=== PATIENT | female | born 1955 | race Caucasian/White ===

== ENCOUNTER 2023-04-06 12:52 | Inpatient (IN) | payer MEDICARE, SELFPAY ==
[2023-04-06] VITALS (17 sets, daily range): BP systolic 122–167; BP diastolic 81–111; PULSE 81–115; RESP 12–23; TEMP 36.4–36.8; O2SAT 81–97; BMI 24.2; BMI 27.7
[2023-04-06 13:16] LABS: Glucometer 373 mg/dL (74-106)
--- NOTE | 2023-04-06 13:16 | ED_ITS ---
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 EMS states the patient is more confused than normal per her significant other. States she has been sitting in a stool 4 days and has not been taking care of herself. He stated she was not acting right thought that her sugar was low but they did not check it. EMS reports glucose over 300. Patient has been sitting in her urine and feces 4 days. She is unkempt has not been eating and drinking. He denied any evidence of vomiting. Patient is not interacting normally does with orders. She is unable to provide a history. There is no one present in the emergency department other than EMS to provide a history. MD complaint: Reports altered mental status Related Data Home Medications Medication Instructions Recorded Confirmed atorvastatin 40 mg tablet 80 mg PO DAILY 04/06/23 04/06/23 clopidogrel 75 mg tablet 75 mg PO DAILY 04/06/23 04/06/23 gabapentin 300 mg capsule 300 mg PO Q12H 04/06/23 04/06/23 insulin glargine 100 unit/mL (3 60 unit subcut BID 04/06/23 04/06/23 mL) subcutaneous pen (Lantus Solostar U-100 Insulin) lisinopril 2.5 mg tablet 2.5 mg PO DAILY 04/06/23 04/06/23 metoprolol tartrate 25 mg tablet 25 mg PO DAILY 04/06/23 04/06/23 omeprazole 40 mg capsule,delayed 40 mg PO DAILY 04/06/23 04/06/23 release sitagliptin phosphate 100 mg 100 mg PO DAILY 04/06/23 04/06/23 tablet (Januvia) Allergies Allergy/AdvReac Type Severity Reaction Status Date / Time adhesive tape AdvReac Mild Verified 04/06/23 17:01 hydrocodone [From Vicodin] AdvReac Mild Nausea Verified 04/06/23 17:01 Review of Systems ROS Status of ROS unobtainable due to mental status Exam Narrative Exam Narrative: Nurses notes and vital signs reviewed and patient is not hypoxic. General: Unkempt, awake, does not make eye contact, taking and biting at her nails which are full of stool, in no apparent distress. Skin: Warm, dry, no pallor noted. Head: Normocephalic, atraumatic. Neck: Supple, non-tender. Eye: Pupils are equal, round and EOMI. No scleral icterus. no nystagnus Ears, Nose, Mouth, and Throat: TM clear, no posterior oropharynx erythema or nasal mucosal hypertrophy, uvula is mid-line Oral mucosa is dry, tacky mucous membranes Cardiovascular: Regular Rate and Rhythm without murmur, gallop or rub. Respiratory: No accessory muscle use or respiratory distress. Lungs are clear to auscultation, no wheezing, rales or rhonchi Chest Wall: no tenderness Back: No midline thoracic or lumbar vertebral tenderness. No CVA tenderness Musculoskeletal: normal ROM, no calf or popliteal tenderness, no lower extremity edema/swelling GI: Abdomen is soft, non-distended. Normal bowel sounds. No masses appreciated. No tenderness to palpation. No rebound, guarding, or rigidity noted. Neurological: Awake, not responding verbally Questions, Moves all extremities. No focal weakness, patient is not interacting appropriately with her surroundings. She looks around but does not make any eye contact. Picking at her nails and biting her nails. Psychiatric: Flat affect Constitutional Vital Signs, click to edit/add: Last Vital Signs Temp 97.6 F 04/07/23 05:23 Pulse 83 04/07/23 08:08 Resp 18 04/07/23 05:23 BP 156/83 H 04/07/23 05:23 Pulse Ox 90 L 04/07/23 05:23 O2 Del Method Room Air 04/07/23 05:23 Course Vital Signs Vital signs: Vital Signs Temperature 98.2 F 04/06/23 12:55 Pulse Rate 106 H 04/06/23 12:55 Respiratory Rate 20 04/06/23 12:55 Blood Pressure 133/87 H 04/06/23 12:55 Pulse Oximetry 97 04/06/23 12:55 Oxygen Delivery Method Room Air 04/06/23 12:55 Temperature 97.6 F 04/07/23 05:23 Pulse Rate 83 04/07/23 08:08 Respiratory Rate 18 04/07/23 05:23 Blood Pressure 156/83 H 04/07/23 05:23 Pulse Oximetry 90 L 04/07/23 05:23 Oxygen Delivery Method Room Air 04/07/23 05:23 MDM - Altered Mental Status MDM Narrative Medical decision making narrative: Patient was given IV fluids. EKG and chest x-ray did not show anything acute.She was given oral potassium and discussed with the hospitalist for admission. At the time of admission is the patient's urinalysis results were not available. Differential Diagnosis Differential diagnosis: Likely altered mental status, dementia, subarachnoid hemorrhage and sepsis Medical Records Attestation: I reviewed the patient's medical records. Lab Data Attestation: I reviewed the patient's lab results. Labs: Lab Results 04/06/23 04/06/23 04/06/23 Range/Units 13:04 14:10 15:46 WBC 8.3 (4.0-11.0) 10^3/uL RBC 3.18 L (4.20-5.40) 10^6/uL Hgb 9.3 L (12.0-16.0) g/dL Hct 28.1 L (36.0-48.0) % MCV 88.4 (81.0-99.0) fL MCH 29.2 (26.7-34.0) pg MCHC 33.1 (29.9-35.2) g/dL RDW 13.2 (11.0-15.0) % Plt Count 200 (150-450) 10^3/uL MPV 10.7 (9.5-13.5) fL Neut % (Auto) 78.7 H (43.0-75.0) % Lymph % (Auto) 11.4 L (20.5-60.0) % [place] % (Auto) 9.0 (1.7-12.0) % Eos % (Auto) 0.2 L (0.9-7.0) % Baso % (Auto) 0.1 L (0.2-2.0) % Neut # (Auto) 6.6 H (1.4-6.5) 10^3/uL Lymph # (Auto) 1.0 L (1.2-3.8) 10^3/uL [place] # (Auto) 0.8 (0.3-0.8) 10^3/uL Eos # (Auto) 0.0 (0.0-0.7) 10^3/uL Baso # (Auto) 0.0 (0.0-0.1) 10^3/uL Abs Immat Gran (auto) 0.05 H (0.00-0.03) 10^3/uL Imm/Tot Granulo (auto) 0.6 H (0.0-0.5) % Sodium 149 H (136-145) mmol/L Potassium 2.4 L* (3.5-5.1) mmol/L Chloride 122 H* (98-107) mmol/L Carbon Dioxide 14.1 L (21.0-32.0) mmol/L Anion Gap 15.3 BUN 23.0 H (7.0-18.0) mg/dL Creatinine 0.52 L (0.55-1.02) mg/dL Est GFR ( Amer) >60 (>=60) Est GFR (Non-Af Amer) >60 (>=60) BUN/Creatinine Ratio 44.2 Glucose 241 H (74-106) mg/dL Lactate 0.8 (0.4-2.0) mmol/L Calcium <5.0 L* (8.5-10.1) mg/dL Total Bilirubin 0.4 (0.2-1.0) mg/dL AST 7 L (15-37) U/L ALT 7 L (14-59) U/L Alkaline Phosphatase 60 (46-116) U/L Ammonia 22 (11-32) umol/L Troponin I High Sens 49.9 (4.0-51.3) pg/mL Total Protein 3.7 L (6.4-8.2) g/dL Albumin 1.6 L (3.4-5.0) g/dL Globulin 2.1 g/dL Albumin/Globulin Ratio 0.8 TSH 0.462 (0.358-3.740) uIU/mL Urine Color Yellow (YELLOW) Urine Clarity Sl cloudy (CLEAR) Urine pH 7.0 (5.0-9.0) Ur Specific [place] 1.025 (1.005-1.025) Urine Protein >=300 A (NEG/TRACE) mg/dL Urine Glucose (UA) >=1000 A (NEGATIVE) mg/dL Urine Ketones 15 A (NEGATIVE) mg/dL Urine Occult Blood Large A (NEGATIVE) Urine Nitrite Negative (NEGATIVE) Urine Bilirubin Negative (NEGATIVE) Urine Urobilinogen 0.2 (0.2-1.0) EU/dL Ur Leukocyte Esterase Trace A (NEGATIVE) Urine RBC 10-20 A (0-2) #/HPF Urine WBC 5-10 A (NONE SEEN) #/HPF Ur Squamous Epith Cells Rare (NONE/RARE) #/LPF Urine Crystals None seen (None Seen) #/HPF Urine Bacteria Large A (NONE SEEN) #/HPF Urine Casts None seen (NONE SEEN) #/LPF Urine Mucus None seen (NONE SEEN) Ur Culture Indicated? Yes Urine Opiates Screen Negative (NEGATIVE) Ur Buprenorphine Scrn Negative (NEGATIVE) Ur Oxycodone Screen Negative (NEGATIVE) Urine Methadone Screen Negative (NEGATIVE) Ur Propoxyphene Screen Negative (NEGATIVE) Ur Barbiturates Screen Negative (NEGATIVE) U Tricyclic Antidepress Negative (NEGATIVE) Ur Phencyclidine Scrn Negative (NEGATIVE) Ur Amphetamines Screen Negative (NEGATIVE) U Methamphetamines Scrn Negative (NEGATIVE) U Benzodiazepines Scrn Negative (NEGATIVE) Urine Cocaine Screen Negative (NEGATIVE) U Cannabinoids Screen Negative (NEGATIVE) POC Glucose 373 H (74-106) mg/dL ECG Data Attestation: ?I have reviewed the pertinent ECG results. Discharge Plan Discharge Chief Complaint: Altered Mental Status Clinical Impression: UTI (urinary tract infection), Metabolic encephalopathy, Hyperglycemia, Hypo kalemia Patient Disposition: Admitted as Observation Condition: Good Discharge Date/Time: 04/06/23 16:18
--- NOTE | 2023-04-06 13:47 | ECG_ITS ---
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
--- NOTE | 2023-04-06 14:15 | XR_ITS ---
The [address] [address] Patient Name: EMILY HARO MRN: [id number] date: 1955 Sex: F Assigned Patient Location: ER Current Patient Location: ER Accession/Order Number: [id number] Exam Date: 04/06/2023 14:15 Report Date: 04/06/2023 14:46 At the request of: CECILIA CODY Procedure: XR chest 1V PROCEDURE: XR chest 1V DATE: 04/06/2023 1:15 PM CDT COMPARISONS: CLINICAL INDICATION: 68 years Female ms changes FINDINGS: The heart appears slightly prominent but is accentuated by lordotic portable radiograph. Poststernotomy changes are identified. The lungs are clear. There is no evidence of pleural effusion or pneumothorax. XR/XR chest 1V IMPRESSION: There may be slight cardiac prominence. This poststernotomy changes. Chest is otherwise within normal limits. Electronically authenticated by: GLENNA BENSON Date: 04/06/2023 14:46
[2023-04-06 14:23] LABS: Basophils Percent Auto 0.1 % (0.2-2.0); Eosinophils Percent Auto 0.2 % (0.9-7.0); Hematocrit 28.1 % (36.0-48.0); Hemoglobin 9.3 g/dL (12.0-16.0); Immature Granulocytes Abs Auto 0.05 10^3/uL (0.00-0.03); Immature Granulocytes Pct Auto 0.6 % (0.0-0.5); Lymphocytes Percent Auto 11.4 % (20.5-60.0); Mean Corpuscular HGB Conc 33.1 g/dL (29.9-35.2); Mean Corpuscular Hemoglobin 29.2 pg (26.7-34.0); Mean Corpuscular Volume 88.4 fL (81.0-99.0); Mean Platelet Volume 10.7 fL (9.5-13.5); Monocytes Absolute Auto 0.8 10^3/uL (0.3-0.8); Neutrophils Absolute Auto 6.6 10^3/uL (1.4-6.5); Neutrophils Percent Auto 78.7 % (43.0-75.0); Platelet Count 200 10^3/uL (150-450); Red Blood Count 3.18 10^6/uL (4.20-5.40); Red Cell Distribution Width 13.2 % (11.0-15.0); White Blood Count 8.3 10^3/uL (4.0-11.0)
[2023-04-06 14:31] LABS: Ammonia 22 umol/L (11-32)
--- NOTE | 2023-04-06 14:37 | CT_ITS ---
The [address] [address] Patient Name: EMILY HARO MRN: [id number] date: 1955 Sex: F Assigned Patient Location: ER Current Patient Location: ER Accession/Order Number: [id number] Exam Date: 04/06/2023 14:25 Report Date: 04/06/2023 14:59 At the request of: CECILIA CODY Procedure: CT head/brain wo con EXAMINATION: CT head/brain wo con, 04/06/2023 2:25 PM EDT HISTORY: Mental status changes COMPARISON: None. TECHNIQUE: CT scan of the head was performed without IV contrast. CT dose reduction technique was used, including Automated Exposure Control. FINDINGS: BRAIN PARENCHYMA/CSF SPACES: Ventricles are normal in size for age. There is no hemorrhage, mass effect or midline shift. Moderate low attenuation in the white matter consistent with chronic microvascular ischemia. PARANASAL SINUSES: Clear. SKULL BASE AND CALVARIUM: Normal. EXTRACRANIAL SOFT TISSUES: Normal. CT/CT head/brain wo con IMPRESSION: 1. No acute intracranial abnormality. 2. Atrophy and chronic white matter small vessel ischemic changes. MRI would be more sensitive for acute infarct if clinically indicated. Electronically authenticated by: JENNIFER SALMERON Date: 04/06/2023 14:59
[2023-04-06 14:38] LABS: Lactate/Lactic Acid 0.8 mmol/L (0.4-2.0)
[2023-04-06 14:47] LABS: Alanine Aminotransferase 7 U/L (14-59); Albumin Globulin Ratio 0.8; Albumin Level 1.6 g/dL (3.4-5.0); Alkaline Phosphatase 60 U/L (46-116); Anion Gap 15.3; Aspartate Amino Transferase 7 U/L (15-37); BUN Creatinine Ratio 44.2; Bilirubin Total 0.4 mg/dL (0.2-1.0); Carbon Dioxide 14.1 mmol/L (21.0-32.0); Estimated GFR (African America >60 (>=60); Estimated GFR (Non-African Ame >60 (>=60); Globulin 2.1 g/dL; Glucose 241 mg/dL (74-106); Sodium 149 mmol/L (136-145); Thyroid Stimulating Hormone 0.462 uIU/mL (0.358-3.740); Total Protein 3.7 g/dL (6.4-8.2); Troponin I High Sensitivity 49.9 pg/mL (4.0-51.3)
[2023-04-06] MEDS: 0.9 % SODIUM CHLORIDE 1,000 ML 999 ML IV (15:03)
[2023-04-06 15:12] LABS: Chloride 122 mmol/L (98-107); Potassium 2.4 mmol/L (3.5-5.1)
[2023-04-06 15:13] LABS: Calcium <5.0 mg/dL (8.5-10.1)
[2023-04-06 16:17] LABS: Bilirubin Urine NEGATIVE (NEGATIVE); Blood Urine LARGE (NEGATIVE); Clarity Urine SL CLOUDY (CLEAR); Color Urine YELLOW (YELLOW); Glucose Urine UA >=1000 mg/dL (NEGATIVE); Ketones Urine 15 mg/dL (NEGATIVE); Leukocyte Esterase Urine TRACE (NEGATIVE); Nitrite Urine NEGATIVE (NEGATIVE); Protein Urine >=300 mg/dL (NEG/TRACE); Specific Gravity Urine 1.025 (1.005-1.025); Urobilinogen Urine 0.2 EU/dL (0.2-1.0)
[2023-04-06 16:18] LABS: Urine Microscopic Indicated YES
[2023-04-06 16:26] LABS: Cannabinoid Screen Urine NEGATIVE (NEGATIVE); Cocaine Screen Urine NEGATIVE (NEGATIVE); Methamphetamines Screen Urine NEGATIVE (NEGATIVE); Phencyclidine Screen Urine NEGATIVE (NEGATIVE)
[2023-04-06 16:27] LABS: Amphetamine Screen Urine NEGATIVE (NEGATIVE); Barbiturates Screen Urine NEGATIVE (NEGATIVE); Benzodiazepines Screen Urine NEGATIVE (NEGATIVE); Buprenorphine Screen Urine NEGATIVE (NEGATIVE); Methadone Screen Urine NEGATIVE (NEGATIVE); Opiate Screen Urine NEGATIVE (NEGATIVE); Oxycodone Screen Urine NEGATIVE (NEGATIVE); Tricyclic Antidepressant Urine NEGATIVE (NEGATIVE)
[2023-04-06 16:31] LABS: Bacteria Urine LARGE #/HPF (NONE SEEN); Mucus Urine NONE SEEN (NONE SEEN); Squamous Epithelial Cell Urine RARE #/LPF (NONE/RARE)
[2023-04-06 16:32] LABS: Cast Seen? NONE SEEN #/LPF (NONE SEEN); Crystals Seen? None Seen #/HPF (None Seen); Urine Culture Indicated YES
--- NOTE | 2023-04-06 17:05 | PM.HP ---
H&P: HPI History of Present Illness Chief complaint: ACUTE MENTAL STATUS, DEHYDRATION Narrative: patient is a 68-year-old female with past medical history of hyperlipidemia, insulin-dependent type 2 diabetes, hypertension, GERD who presents with a several day history of altered mental status. Patient was not able to give me a history but per Emergency Room notes the has not been able to encourage her to take her medication sheet he had been giving her her insulin. She had been to the point where she was sitting in her own feces. She does not provide much of a history on exam on admission. She denies any current complaints or issues Review of Systems ROS Narrative complete review of systems could not be obtained secondary to patient's mental status Meds Home Medications and Allergies Home Medications Medication Instructions Recorded Confirmed Type atorvastatin 40 mg tablet 80 mg PO DAILY 04/06/23 04/06/23 History clopidogrel 75 mg tablet 75 mg PO DAILY 04/06/23 04/06/23 History gabapentin 300 mg capsule 300 mg PO Q12H 04/06/23 04/06/23 History insulin glargine 100 unit/mL (3 60 unit subcut BID 04/06/23 04/06/23 History mL) subcutaneous pen (Lantus Solostar U-100 Insulin) lisinopril 2.5 mg tablet 2.5 mg PO DAILY 04/06/23 04/06/23 History metoprolol tartrate 25 mg tablet 25 mg PO DAILY 04/06/23 04/06/23 History omeprazole 40 mg capsule,delayed 40 mg PO DAILY 04/06/23 04/06/23 History release sitagliptin phosphate 100 mg 100 mg PO DAILY 04/06/23 04/06/23 History tablet (Januvia) Allergies Allergy/AdvReac Type Severity Reaction Status Date / Time adhesive tape AdvReac Mild Verified 04/06/23 17:01 hydrocodone [From Vicodin] AdvReac Mild Nausea Verified 04/06/23 17:01 Exam Narrative Exam Narrative: General: Patient is alert, but not oriented to person, place or time with poor hygiene Skin: [place] candidiasis Head: atraumatic, acephalic Eyes: PERRLA, no nystagmus present, conjunctiva clear, no scleral icterus Neck: no masses palpated, normal thyroid, no JVD Heart: Normal rate and rhythm, no murmurs/rubs/gallops Lungs: no audible wheezes, crackles and normal breath sounds all lung wooten Abdomen: Normal audible bowel sounds, no distension, No palpable masses, no organomegaly, no rebound/guarding/ or rigidity Musculoskeletal: muscle atrophy noted, ROM is limited due to being in hospital bed, no swelling bilateral lower extremities Vascular: Normal carotid, radial, femoral, posterior tibial, and dorsalis pedis pulses Lymph: no supraclavicular, axillary, or anterior/posterior cervical adenopathy Neuro: CN II-X grossly intact Constitutional Vital Signs, click to edit/add: Last Vital Signs Temp 98.2 F 04/06/23 12:55 Pulse 108 H 04/06/23 15:45 Resp 12 04/06/23 15:45 BP 122/81 H 04/06/23 15:45 Pulse Ox 81 L 04/06/23 15:31 O2 Del Method Room Air 04/06/23 12:55 Results Labs Labs: Short CBC 04/06/23 Range/Units 14:10 WBC 8.3 (4.0-11.0) 10^3/uL Hgb 9.3 L (12.0-16.0) g/dL Hct 28.1 L (36.0-48.0) % Plt Count 200 (150-450) 10^3/uL BMP 04/06/23 14:10 Sodium 149 H Potassium 2.4 L* Chloride 122 H* Carbon Dioxide 14.1 L BUN 23.0 H Creatinine 0.52 L Glucose 241 H Calcium <5.0 L* Liver Function 04/06/23 Range/Units 14:10 Total Bilirubin 0.4 (0.2-1.0) mg/dL AST 7 L (15-37) U/L ALT 7 L (14-59) U/L Alkaline Phosphatase 60 (46-116) U/L Albumin 1.6 L (3.4-5.0) g/dL Urine 04/06/23 Range/Units 15:46 Urine Color Yellow (YELLOW) Urine Clarity Sl cloudy (CLEAR) Urine pH 7.0 (5.0-9.0) Ur Specific [place] 1.025 (1.005-1.025) Urine Protein >=300 A (NEG/TRACE) mg/dL Urine Glucose (UA) >=1000 A (NEGATIVE) mg/dL Assessment and Plan Assessment and Plan (1) Metabolic encephalopathy: Assessment and Plan: most likely secondary to the acute urinary tract infection we will place and continue on Rocephin.head CT was negative for any acute stroke (2) Type 2 diabetes mellitus with insulin therapy: Assessment and Plan: will continue long-acting insulin as while as well as sliding scale, hemoglobin A1c in the morning (3) UTI (urinary tract infection): Assessment and Plan: continue Rocephin (4) Hypokalemia: Assessment and Plan: replace IV 40 mEq and placed on 20 mg twice a day (5) Hyperglycemia: Assessment and Plan: sliding scale insulin monitor blood glucose diabetic diet (6) Hypertension: Assessment and Plan: continue metoprolol, lisinopril (7) HLD (hyperlipidemia): Assessment and Plan: continue atorvastatin Plan PT OT evaluation Is a full code Patient is admitted to observation status and is not expected to stay more than two midnights
[2023-04-06] MEDS: POTASSIUM CHLORIDE IN WATER 10 MEQ/100 ML PIGGYBACK 100 MEQ IV ×4 (18:11→21:39)
[2023-04-06] MEDS: LACTATED RINGER'S SOLUTION 1,000 ML 150 ML IV (18:11)
[2023-04-06] MEDS: ENOXAPARIN SODIUM 40 MG/0.4 ML SYRINGE SUBQ (19:27)
[2023-04-06] MEDS: PANTOPRAZOLE SODIUM 40 MG VIAL IV (19:27)
[2023-04-06] MEDS: NYSTATIN 100,000 UNITS/GRAM CREAM 15 GM TUBE 1 APPLIC TOPICAL (22:14)
[2023-04-06] MEDS: INSULIN DETEMIR 300 UNIT/3 ML INSULN.PEN 60 UNIT SUBQ (22:18)
[2023-04-06 22:19] LABS: Glucometer 313 mg/dL (74-106)
[2023-04-06] MEDS: CEFTRIAXONE 1,000 MG in 0.9 % SODIUM CHLORIDE 50 ML 100 MG IV (22:55)
[2023-04-07] VITALS (19 sets, daily range): BP systolic 113–156; BP diastolic 66–83; PULSE 55–99; RESP 18; TEMP 36.4; O2SAT 90–99
[2023-04-07 05:15] LABS: Basophils Percent Auto 0.3 % (0.2-2.0); Eosinophils Absolute Auto 0.1 10^3/uL (0.0-0.7); Eosinophils Percent Auto 1.2 % (0.9-7.0); Hemoglobin 13.8 g/dL (12.0-16.0); Immature Granulocytes Abs Auto 0.06 10^3/uL (0.00-0.03); Immature Granulocytes Pct Auto 0.6 % (0.0-0.5); Lymphocytes Absolute Auto 1.9 10^3/uL (1.2-3.8); Lymphocytes Percent Auto 20.1 % (20.5-60.0); Mean Corpuscular HGB Conc 32.9 g/dL (29.9-35.2); Mean Corpuscular Hemoglobin 28.5 pg (26.7-34.0); Mean Corpuscular Volume 86.6 fL (81.0-99.0); Mean Platelet Volume 11.6 fL (9.5-13.5); Monocytes Absolute Auto 0.9 10^3/uL (0.3-0.8); Monocytes Percent Auto 9.6 % (1.7-12.0); Neutrophils Absolute Auto 6.5 10^3/uL (1.4-6.5); Neutrophils Percent Auto 68.2 % (43.0-75.0); Platelet Count 249 10^3/uL (150-450); Red Blood Count 4.85 10^6/uL (4.20-5.40); Red Cell Distribution Width 13.3 % (11.0-15.0); White Blood Count 9.5 10^3/uL (4.0-11.0)
[2023-04-07] MEDS: CEFTRIAXONE 1,000 MG in 0.9 % SODIUM CHLORIDE 50 ML 100 MG IV ×2 (05:18→19:32)
[2023-04-07] MEDS: LACTATED RINGER'S SOLUTION 1,000 ML 150 ML IV ×3 (05:19→19:33)
[2023-04-07 05:32] LABS: Estimated Average Glucose 240 mg/dL
[2023-04-07 05:35] LABS: Alanine Aminotransferase 13 U/L (14-59); Albumin Globulin Ratio 0.8; Albumin Level 3.2 g/dL (3.4-5.0); Alkaline Phosphatase 119 U/L (46-116); Anion Gap 12.5; Aspartate Amino Transferase 19 U/L (15-37); BUN Creatinine Ratio 30.2; Bilirubin Total 0.5 mg/dL (0.2-1.0); Calcium 8.9 mg/dL (8.5-10.1); Carbon Dioxide 23.8 mmol/L (21.0-32.0); Chloride 109 mmol/L (98-107); Estimated GFR (African America >60 (>=60); Estimated GFR (Non-African Ame 52 (>=60); Globulin 3.9 g/dL; Glucose 232 mg/dL (74-106); Potassium 4.3 mmol/L (3.5-5.1); Sodium 141 mmol/L (136-145); Thyroid Stimulating Hormone 0.476 uIU/mL (0.358-3.740); Total Protein 7.1 g/dL (6.4-8.2)
[2023-04-07 07:21] LABS: Glucometer 161 mg/dL (74-106)
--- NOTE | 2023-04-07 08:55 | PM.PN ---
Progress Note: Subjective Subjective Interval history: patient is a 68-year-old female with past medical history of hyperlipidemia, insulin-dependent type 2 diabetes, hypertension, GERD who presents with a several day history of altered mental status. Patient was not able to give me a history but per Emergency Room notes the has not been able to encourage her to take her medication sheet he had been giving her her insulin. She had been to the point where she was sitting in her own feces. She does not provide much of a history on exam. She denies any current complaints or issues. nursing staff reported some difficulty swallowing water this morning's on MRI of the brain, and swallow evaluation was ordered. Exam Narrative Exam Narrative: General: Patient is alert, but not oriented to person, place or time with poor hygiene Skin: yeast candidiasis Head: atraumatic, acephalic Eyes: PERRLA, no nystagmus present, conjunctiva clear, no scleral icterus Neck: no masses palpated, normal thyroid, no JVD Heart: Normal rate and rhythm, no murmurs/rubs/gallops Lungs: no audible wheezes, crackles and normal breath sounds all lung wooten Abdomen: Normal audible bowel sounds, no distension, No palpable masses, no organomegaly, no rebound/guarding/ or rigidity Musculoskeletal: muscle atrophy noted, ROM is limited due to being in hospital bed, no swelling bilateral lower extremities Vascular: Normal carotid, radial, femoral, posterior tibial, and dorsalis pedis pulses Lymph: no supraclavicular, axillary, or anterior/posterior cervical adenopathy patient will not cooperate for a full neuro exam Constitutional Vital Signs, click to edit/add: Last Vital Signs Temp 97.6 F 04/07/23 05:23 Pulse 83 04/07/23 08:08 Resp 18 04/07/23 05:23 BP 156/83 H 04/07/23 05:23 Pulse Ox 90 L 04/07/23 05:23 O2 Del Method Room Air 04/07/23 05:23 Progress Note: Objective Labs Labs: Short CBC 04/06/23 04/07/23 Range/Units 14:10 04:20 WBC 8.3 9.5 (4.0-11.0) 10^3/uL Hgb 9.3 L 13.8 (12.0-16.0) g/dL Hct 28.1 L 42.0 (36.0-48.0) % Plt Count 200 249 (150-450) 10^3/uL BMP 04/06/23 04/07/23 14:10 04:20 Sodium 149 H 141 Potassium 2.4 L* 4.3 Chloride 122 H* 109 H Carbon Dioxide 14.1 L 23.8 BUN 23.0 H 32.0 H Creatinine 0.52 L 1.06 H Glucose 241 H 232 H Calcium <5.0 L* 8.9 Liver Function 04/06/23 04/07/23 Range/Units 14:10 04:20 Total Bilirubin 0.4 0.5 (0.2-1.0) mg/dL AST 7 L 19 (15-37) U/L ALT 7 L 13 L (14-59) U/L Alkaline Phosphatase 60 119 H (46-116) U/L Albumin 1.6 L 3.2 L (3.4-5.0) g/dL Urine 04/06/23 Range/Units 15:46 Urine Color Yellow (YELLOW) Urine Clarity Sl cloudy (CLEAR) Urine pH 7.0 (5.0-9.0) Ur Specific [place] 1.025 (1.005-1.025) Urine Protein >=300 A (NEG/TRACE) mg/dL Urine Glucose (UA) >=1000 A (NEGATIVE) mg/dL Progress Note: A&P Assessment and Plan (1) Metabolic encephalopathy: Assessment and Plan: most likely secondary to the acute urinary tract infection we will place and continue on Rocephin.head CT was negative for any acute stroke on admission but order placed for MRI and swallow evaluation (2) Type 2 diabetes mellitus with insulin therapy: Assessment and Plan: will continue long-acting insulin as while as well as sliding scale, hemoglobin A1c 10 (3) UTI (urinary tract infection): Assessment and Plan: continue Rocephin (4) Hypokalemia: Assessment and Plan: replace IV 40 mEq and placed on 20 mg twice a day (5) Hyperglycemia: Assessment and Plan: sliding scale insulin monitor blood glucose diabetic diet (6) Hypertension: Assessment and Plan: continue metoprolol, lisinopril (7) HLD (hyperlipidemia): Assessment and Plan: continue atorvastatin Plan PT OT evaluation Is a full code Patient is admitted to observation status and is not expected to stay more than two midnights
[2023-04-07] MEDS: METOPROLOL TARTRATE 25 MG TABLET PO (10:00)
[2023-04-07] MEDS: POTASSIUM CHLORIDE 10 MEQ ER TABLET 20 MEQ PO ×2 (10:00→21:17)
[2023-04-07] MEDS: CLOPIDOGREL BISULFATE 75 MG TABLET PO (10:00)
[2023-04-07] MEDS: LISINOPRIL 5 MG TABLET 2.5 MG PO (10:00)
[2023-04-07] MEDS: NYSTATIN 100,000 UNITS/GRAM CREAM 15 GM TUBE 1 APPLIC TOPICAL ×2 (10:01→21:18)
[2023-04-07] MEDS: SITAGLIPTIN PHOSPHATE 50 MG TABLET 100 MG PO (10:01)
[2023-04-07] MEDS: ATORVASTATIN CALCIUM 40 MG TABLET 80 MG PO (10:01)
[2023-04-07] MEDS: GABAPENTIN 300 MG CAPSULE PO ×2 (10:01→21:17)
[2023-04-07] MEDS: INSULIN DETEMIR 300 UNIT/3 ML INSULN.PEN 60 UNIT SUBQ (10:02)
[2023-04-07] MEDS: INSULIN ASPART 300 UNIT/3 ML PEN SUBQ (12:37)
[2023-04-07] MEDS: PANTOPRAZOLE SODIUM 40 MG VIAL IV (19:32)
[2023-04-07] MEDS: ENOXAPARIN SODIUM 40 MG/0.4 ML SYRINGE SUBQ (19:32)
[2023-04-07 21:49] LABS: Glucometer 162 mg/dL (74-106)
[2023-04-07 21:49] LABS: Glucometer 91 mg/dL (74-106)
[2023-04-07 21:49] LABS: Glucometer 74 mg/dL (74-106)
[2023-04-08] VITALS (16 sets, daily range): BP systolic 112–166; BP diastolic 70–78; PULSE 62–87; RESP 18–20; TEMP 36.4–36.5; O2SAT 92–95; BMI 28.8
[2023-04-08] MEDS: LACTATED RINGER'S SOLUTION 1,000 ML 150 ML IV (03:09)
[2023-04-08 03:58] LABS: Glucometer 142 mg/dL (74-106)
[2023-04-08 05:40] LABS: Basophils Percent Auto 0.3 % (0.2-2.0); Eosinophils Absolute Auto 0.2 10^3/uL (0.0-0.7); Eosinophils Percent Auto 2.9 % (0.9-7.0); Hematocrit 37.4 % (36.0-48.0); Hemoglobin 12.1 g/dL (12.0-16.0); Immature Granulocytes Abs Auto 0.05 10^3/uL (0.00-0.03); Immature Granulocytes Pct Auto 0.6 % (0.0-0.5); Lymphocytes Absolute Auto 1.6 10^3/uL (1.2-3.8); Lymphocytes Percent Auto 20.8 % (20.5-60.0); Mean Corpuscular HGB Conc 32.4 g/dL (29.9-35.2); Mean Corpuscular Hemoglobin 28.7 pg (26.7-34.0); Mean Corpuscular Volume 88.6 fL (81.0-99.0); Mean Platelet Volume 11.2 fL (9.5-13.5); Monocytes Absolute Auto 0.7 10^3/uL (0.3-0.8); Monocytes Percent Auto 9.4 % (1.7-12.0); Neutrophils Absolute Auto 5.2 10^3/uL (1.4-6.5); Platelet Count 253 10^3/uL (150-450); Red Blood Count 4.22 10^6/uL (4.20-5.40); Red Cell Distribution Width 13.5 % (11.0-15.0); White Blood Count 7.9 10^3/uL (4.0-11.0)
[2023-04-08] MEDS: CEFTRIAXONE 1,000 MG in 0.9 % SODIUM CHLORIDE 50 ML 100 MG IV ×2 (05:43→17:08)
[2023-04-08 06:13] LABS: Alanine Aminotransferase 15 U/L (14-59); Albumin Globulin Ratio 0.8; Albumin Level 2.4 g/dL (3.4-5.0); Alkaline Phosphatase 97 U/L (46-116); Aspartate Amino Transferase 16 U/L (15-37); BUN Creatinine Ratio 29.5; Bilirubin Total 0.3 mg/dL (0.2-1.0); Calcium 8.4 mg/dL (8.5-10.1); Chloride 111 mmol/L (98-107); Estimated GFR (African America >60 (>=60); Estimated GFR (Non-African Ame 59 (>=60); Globulin 3.1 g/dL; Glucose 179 mg/dL (74-106); Sodium 141 mmol/L (136-145); Total Protein 5.5 g/dL (6.4-8.2)
[2023-04-08] MEDS: POTASSIUM CHLORIDE 10 MEQ ER TABLET 20 MEQ PO ×2 (08:07→21:02)
[2023-04-08] MEDS: LISINOPRIL 5 MG TABLET 2.5 MG PO (08:07)
[2023-04-08] MEDS: GABAPENTIN 300 MG CAPSULE PO ×2 (08:08→21:02)
[2023-04-08] MEDS: NYSTATIN 100,000 UNITS/GRAM CREAM 15 GM TUBE 1 APPLIC TOPICAL ×2 (08:08→21:02)
[2023-04-08] MEDS: SITAGLIPTIN PHOSPHATE 50 MG TABLET 100 MG PO (08:08)
[2023-04-08] MEDS: CLOPIDOGREL BISULFATE 75 MG TABLET PO (08:08)
[2023-04-08] MEDS: ATORVASTATIN CALCIUM 40 MG TABLET 80 MG PO (08:08)
[2023-04-08] MEDS: METOPROLOL TARTRATE 25 MG TABLET PO (08:09)
[2023-04-08] MEDS: INSULIN DETEMIR 300 UNIT/3 ML INSULN.PEN 60 UNIT SUBQ ×2 (08:13→21:02)
--- NOTE | 2023-04-08 09:14 | PM.PN ---
Progress Note: Subjective Subjective Interval history: patient is a 68-year-old female with past medical history of hyperlipidemia, insulin-dependent type 2 diabetes, hypertension, GERD who presents with a several day history of altered mental status. Patient was not able to give me a history but per Emergency Room notes the has not been able to encourage her to take her medication sheet he had been giving her her insulin. She had been to the point where she was sitting in her own feces. today she seems much improved, day and night from yesterday events. Up to the chair and carrying on conversation. Able to provide good history. no current complaints. Exam Narrative Exam Narrative: General: Patient is alert, and oriented to person, place and time with normal affect, proper hygiene Skin: no visible rashes, or ulcers Head: atraumatic, acephalic Eyes: PERRLA, no nystagmus present, conjunctiva clear, no scleral icterus Neck: no masses palpated, normal thyroid, no JVD or audible carotid bruits Heart: Normal rate and rhythm, no murmurs/rubs/gallops Lungs: no audible wheezes, crackles and normal breath sounds all lung wooten Abdomen: Normal audible bowel sounds, no distension, No palpable masses, no organomegaly, no rebound/guarding/ or rigidity Musculoskeletal: muscle atrophy noted, ROM is limited due to being in hospital bed, no swelling bilateral lower extremities Vascular: Normal carotid, radial, femoral, posterior tibial, and dorsalis pedis pulses Lymph: no supraclavicular, axillary, or anterior/posterior cervical adenopathy Neuro: CN II-X grossly intact, normal sensation upper and lower extremities Constitutional Vital Signs, click to edit/add: Last Vital Signs Temp 97.5 F L 04/08/23 06:00 Pulse 76 04/08/23 08:02 Resp 18 04/08/23 06:00 BP 128/78 H 04/08/23 06:00 Pulse Ox 92 L 04/08/23 06:00 O2 Del Method Room Air 04/08/23 06:00 Progress Note: Objective Labs Labs: Short CBC 04/08/23 Range/Units 05:00 WBC 7.9 (4.0-11.0) 10^3/uL Hgb 12.1 (12.0-16.0) g/dL Hct 37.4 (36.0-48.0) % Plt Count 253 (150-450) 10^3/uL BMP 04/08/23 05:00 Sodium 141 Potassium 4.0 Chloride 111 H Carbon Dioxide 22.0 BUN 28.0 H Creatinine 0.95 Glucose 179 H Calcium 8.4 L Liver Function 04/08/23 Range/Units 05:00 Total Bilirubin 0.3 (0.2-1.0) mg/dL AST 16 (15-37) U/L ALT 15 (14-59) U/L Alkaline Phosphatase 97 (46-116) U/L Albumin 2.4 L (3.4-5.0) g/dL Progress Note: A&P Assessment and Plan (1) Metabolic encephalopathy: Assessment and Plan: most likely secondary to the acute urinary tract infection we will place and continue on Rocephin.head CT? was negative for any acute stroke on admission but order placed for MRI and swallow evaluation. Cancelled MRI as patient is back to baseline mentation today. (2) Type 2 diabetes mellitus with insulin therapy: Assessment and Plan: will continue long-acting insulin as while as well as sliding scale, hemoglobin A1c 10 (3) UTI (urinary tract infection): Assessment and Plan: continue Rocephin (4) Hypokalemia: Assessment and Plan: replace IV 40 mEq and placed on 20 mg twice a day (5) Hyperglycemia: Assessment and Plan: sliding scale insulin monitor blood glucose diabetic diet (6) Hypertension: Assessment and Plan: continue metoprolol, lisinopril (7) HLD (hyperlipidemia): Assessment and Plan: continue atorvastatin Plan PT OT evaluation Is a full code Patient is admitted to observation status and is not expected to stay more than two midnights hopeful discharge home tomorrow with home health
[2023-04-08 11:17] LABS: Glucometer 248 mg/dL (74-106)
--- NOTE | 2023-04-08 11:24 | SWNOTE1 ---
SW met with pt to discuss dc needs. Pt does live at home with her significant other. Pt does know she is at [facility], her date, and year. She does not remember coming by ambulance to hospital. Pt has a walker at home, but does not always use it. Pt is not current with any home health at this time. SW and doctor did talk to her about going skilled for rehab, pt refuses. Pt is agreeable to have home health come in. She is alright with PT/OT and skilled nurse. Pt is concerned about her clutter in her home. Pt feels she has had [facility] in past and would like them. SW talked with her about meals on wheels. She stated they have their own garden at home and she wants to get back to cooking. She is not sure he significant other will want meals on wheels, but she will ask him. SW to check back later today. SW sent referral to [facility]. SW expressed the importance of exercising at home and making sure pt takes her meds. Pt voiced understanding.
[2023-04-08] MEDS: INSULIN ASPART 300 UNIT/3 ML PEN SUBQ ×3 (11:43→21:03)
--- NOTE | 2023-04-08 12:18 | CM.NOTE ---
Rounds made with Dr. Rizvi, discussed skilled rehab with pt. Pt refuses skilled therapy at this time, pt is open to HH. Dr. Rizvi explained the risks of going home being this week, pt continues to refuses skilled.
--- NOTE | 2023-04-08 12:37 | CM.NOTE ---
Important Message From [employer] discussed with pt, pt verbalizes understanding and signs paper. Original given to pt and copy placed on pt's chart.
--- NOTE | 2023-04-08 14:22 | SWNOTE1 ---
[facility] is able to accept.
--- NOTE | 2023-04-08 14:51 | DIETREC ---
Nutrition Recommendations: 1. Remove Renal diet restriction. Reviewed with
[2023-04-08 16:22] LABS: Glucometer 256 mg/dL (74-106)
[2023-04-08] MEDS: PANTOPRAZOLE SODIUM 40 MG VIAL IV (17:08)
[2023-04-08] MEDS: ENOXAPARIN SODIUM 40 MG/0.4 ML SYRINGE SUBQ (17:08)
[2023-04-08 20:12] LABS: Glucometer 274 mg/dL (74-106)
[2023-04-09] VITALS (9 sets, daily range): BP systolic 144–185; BP diastolic 71–80; PULSE 58–80; RESP 18–20; TEMP 36.6; O2SAT 93–97
[2023-04-09 04:42] LABS: Basophils Percent Auto 0.5 % (0.2-2.0); Eosinophils Absolute Auto 0.3 10^3/uL (0.0-0.7); Eosinophils Percent Auto 4.1 % (0.9-7.0); Hematocrit 37.4 % (36.0-48.0); Hemoglobin 12.1 g/dL (12.0-16.0); Immature Granulocytes Abs Auto 0.05 10^3/uL (0.00-0.03); Immature Granulocytes Pct Auto 0.8 % (0.0-0.5); Lymphocytes Absolute Auto 1.8 10^3/uL (1.2-3.8); Lymphocytes Percent Auto 26.7 % (20.5-60.0); Mean Corpuscular HGB Conc 32.4 g/dL (29.9-35.2); Mean Corpuscular Hemoglobin 28.7 pg (26.7-34.0); Mean Corpuscular Volume 88.8 fL (81.0-99.0); Mean Platelet Volume 11.2 fL (9.5-13.5); Monocytes Absolute Auto 0.6 10^3/uL (0.3-0.8); Monocytes Percent Auto 9.4 % (1.7-12.0); Neutrophils Absolute Auto 3.9 10^3/uL (1.4-6.5); Neutrophils Percent Auto 58.5 % (43.0-75.0); Platelet Count 247 10^3/uL (150-450); Red Blood Count 4.21 10^6/uL (4.20-5.40); Red Cell Distribution Width 13.5 % (11.0-15.0); White Blood Count 6.6 10^3/uL (4.0-11.0)
[2023-04-09 04:58] LABS: Alanine Aminotransferase 17 U/L (14-59); Albumin Globulin Ratio 0.8; Albumin Level 2.5 g/dL (3.4-5.0); Alkaline Phosphatase 115 U/L (46-116); Anion Gap 11.9; Aspartate Amino Transferase 12 U/L (15-37); Bilirubin Total 0.2 mg/dL (0.2-1.0); Calcium 8.6 mg/dL (8.5-10.1); Carbon Dioxide 22.4 mmol/L (21.0-32.0); Chloride 111 mmol/L (98-107); Estimated GFR (African America >60 (>=60); Estimated GFR (Non-African Ame >60 (>=60); Globulin 3.3 g/dL; Glucose 162 mg/dL (74-106); Potassium 4.3 mmol/L (3.5-5.1); Sodium 141 mmol/L (136-145); Total Protein 5.8 g/dL (6.4-8.2)
[2023-04-09] MEDS: CEFTRIAXONE 1,000 MG in 0.9 % SODIUM CHLORIDE 50 ML 100 MG IV (06:19)
--- NOTE | 2023-04-09 08:36 | P.DS_ITS ---
DS: Providers Provider Date of admission: 04/07/23 10:09 Primary care physician: PABLO ROQUE Consults: 04/06/23 16:58 Occupational Therapy Eval and Treat Routine Physical Therapy Eval and Treat Routine 04/07/23 08:49 Speech Therapy Eval and Treat Routine DS: Diagnosis Discharge Diagnosis (1) Metabolic encephalopathy: (2) Type 2 diabetes mellitus with insulin therapy: (3) UTI (urinary tract infection): (4) Hypokalemia: (5) Hyperglycemia: (6) Hypertension: (7) HLD (hyperlipidemia): DS: Summary Hospital Course Hospital Course: (1) Metabolic encephalopathy: ?Assessment and Plan: most likely secondary to the acute urinary tract infection we will place and continue on Rocephin.head CT? was negative for any acute stroke on admission but order placed for MRI and swallow evaluation. Cancelled MRI as patient is back to baseline mentation. will be discharged home on Macrobid for five days. Urine culture showed only normal hallie. but patient's mentation has significantly improved. (2) Type 2 diabetes mellitus with insulin therapy: ?Assessment and Plan: will continue long-acting insulin as while as well as sliding scale, hemoglobin A1c 10, resume home medications (3) UTI (urinary tract infection): ?Assessment and Plan: continue Rocephin, discharged home on Macrobid (4) Hypokalemia: ?Assessment and Plan: replace IV 40 mEq and placed on 20 mg twice a day, potassium supplement sent home she will need to follow up with her PCP in approximately 5-7 days for recheck BMP and UA (5) Hyperglycemia: ?Assessment and Plan: sliding scale insulin monitor blood glucose diabetic diet (6) Hypertension: ?Assessment and Plan: continue metoprolol, lisinopril (7) HLD (hyperlipidemia): ?Assessment and Plan: continue atorvastatin patient was offered acute rehab and patient refuses to go to inpatient rehab and prefers to go home with home health. Status at Discharge Functional status at discharge: uses cane/walker Overall status at discharge: patient is progressing back to baseline Time Spent with Patient Time attestation: Total time spent providing and/or coordinating discharge services: Exam Narrative Exam Narrative: General: Patient is alert, and oriented to person, place and time with normal affect, proper hygiene Skin: no visible rashes, or ulcers Head: atraumatic, acephalic Eyes: PERRLA, no nystagmus present, conjunctiva clear, no scleral icterus Neck: no masses palpated, normal thyroid, no JVD or audible carotid bruits Heart: Normal rate and rhythm, no murmurs/rubs/gallops Lungs: no audible wheezes, crackles and normal breath sounds all lung wooten Abdomen: Normal audible bowel sounds, no distension, No palpable masses, no organomegaly, no rebound/guarding/ or rigidity Musculoskeletal: muscle atrophy noted, ROM is limited due to being in hospital bed, no swelling bilateral lower extremities Vascular: Normal carotid, radial, femoral, posterior tibial, and dorsalis pedis pulses Lymph: no supraclavicular, axillary, or anterior/posterior cervical adenopathy Neuro: CN II-X grossly intact, normal sensation upper and lower extremities Constitutional Vital Signs, click to edit/add: Last Vital Signs Temp 98 F 04/09/23 05:57 Pulse 69 04/09/23 07:52 Resp 18 04/09/23 05:57 BP 185/80 H 04/09/23 05:57 Pulse Ox 95 04/09/23 05:57 O2 Del Method Room Air 04/09/23 05:57 DS: Data Data Completed and Pending Labs on day of discharge: Labs from last 24 hours 04/09/23 04/08/23 04/08/23 04:12 20:09 16:09 WBC 6.6 RBC 4.21 Hgb 12.1 Hct 37.4 MCV 88.8 MCH 28.7 MCHC 32.4 RDW 13.5 Plt Count 247 MPV 11.2 Neut % (Auto) 58.5 Lymph % (Auto) 26.7 Amelia % (Auto) 9.4 Eos % (Auto) 4.1 Baso % (Auto) 0.5 Neut # (Auto) 3.9 Lymph # (Auto) 1.8 Amelia # (Auto) 0.6 Eos # (Auto) 0.3 Baso # (Auto) 0.0 Abs Immat Gran (auto) 0.05 H Imm/Tot Granulo (auto) 0.8 H Sodium 141 Potassium 4.3 Chloride 111 H Carbon Dioxide 22.4 Anion Gap 11.9 BUN 23.0 H Creatinine 0.92 Est GFR ( Amer) >60 Est GFR (Non-Af Amer) >60 BUN/Creatinine Ratio 25.0 Glucose 162 H Calcium 8.6 Total Bilirubin 0.2 AST 12 L ALT 17 Alkaline Phosphatase 115 Total Protein 5.8 L Albumin 2.5 L Globulin 3.3 Albumin/Globulin Ratio 0.8 POC Glucose 274 H 256 H 04/08/23 11:04 WBC RBC Hgb Hct MCV MCH MCHC RDW Plt Count MPV Neut % (Auto) Lymph % (Auto) Amelia % (Auto) Eos % (Auto) Baso % (Auto) Neut # (Auto) Lymph # (Auto) Amelia # (Auto) Eos # (Auto) Baso # (Auto) Abs Immat Gran (auto) Imm/Tot Granulo (auto) Sodium Potassium Chloride Carbon Dioxide Anion Gap BUN Creatinine Est GFR ( Amer) Est GFR (Non-Af Amer) BUN/Creatinine Ratio Glucose Calcium Total Bilirubin AST ALT Alkaline Phosphatase Total Protein Albumin Globulin Albumin/Globulin Ratio POC Glucose 248 H Discharge Plan Discharge Disposition: Home Health Service Condition: Good Discharge Medications: New potassium chloride [Klor-Con M10] 10 mEq Tablet,Er Particles/Crystals 20 meq PO BID 10 Days Qty: 40 0RF nitrofurantoin monohyd/m-cryst [Macrobid] 100 mg capsule 100 mg PO BID 5 Days Qty: 10 0RF Rx Instructions: must administer with a meal/food Continued gabapentin 300 mg capsule 300 mg PO Q8H insulin glargine [Lantus Solostar U-100 Insulin] 100 unit/mL (3 mL) insulin pen 60 unit SUBCUT BID lisinopril 2.5 mg tablet 2.5 mg PO DAILY metoprolol tartrate 25 mg tablet 12.5 mg PO Q12H clopidogrel 75 mg tablet 75 mg PO DAILY omeprazole 40 mg capsule,delayed release(DR/EC) 40 mg PO DAILY Januvia 100 mg tablet 100 mg PO DAILY aspirin [Aspir-Leela] 325 mg tablet,delayed release (DR/EC) 325 mg PO DAILY metformin [Glumetza] 1,000 mg tablet,ER remington.retention 24 hr 1,000 mg PO BID atorvastatin 80 mg tablet 80 mg PO DAILY Activity: ambulate only with your walker and increase activity as tolerated Diet: advance to your usual diet and diabetic diet Patient Instructions: Nitrofurantoin (By mouth), Potassium Chloride (By mouth), Urinary Tract Infection in Women (DC), Altered Mental Status (GEN) 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 Forms: Portal Instructions Follow Up Appointments: PCP to recheck Urinalysis and bmp , follow up with Brittany Matos -JakApril 17 at 10:30 [phone] Discharge Date/Time: 04/09/23 15:13
[2023-04-09] MEDS: SITAGLIPTIN PHOSPHATE 50 MG TABLET 100 MG PO (08:47)
[2023-04-09] MEDS: GABAPENTIN 300 MG CAPSULE PO (08:49)
[2023-04-09] MEDS: ATORVASTATIN CALCIUM 40 MG TABLET 80 MG PO (08:49)
[2023-04-09] MEDS: METOPROLOL TARTRATE 25 MG TABLET PO (08:49)
[2023-04-09] MEDS: CLOPIDOGREL BISULFATE 75 MG TABLET PO (08:49)
[2023-04-09] MEDS: POTASSIUM CHLORIDE 10 MEQ ER TABLET 20 MEQ PO (08:49)
[2023-04-09] MEDS: LISINOPRIL 5 MG TABLET 2.5 MG PO (08:50)
[2023-04-09] MEDS: NYSTATIN 100,000 UNITS/GRAM CREAM 15 GM TUBE 1 APPLIC TOPICAL (08:50)
[2023-04-09] MEDS: INSULIN DETEMIR 300 UNIT/3 ML INSULN.PEN 60 UNIT SUBQ (08:52)
[2023-04-09] MEDS: INSULIN ASPART 300 UNIT/3 ML PEN SUBQ (08:52)
[2023-04-09 10:59] LABS: Glucometer 131 mg/dL (74-106)
--- NOTE | 2023-04-09 11:18 | REH.PTDLY ---
Physical Therapy Daily Note PT Daily Note/Assess Start: 04/09/23 11:14 Freq: Status: Active Protocol: Document 04/09/23 11:14 NEIDA (Rec: 04/09/23 11:17 NEIDA Desktop) Physical Therapy Daily Note/Assessment Time In 10:45 Time Out 10:55 Subjective Pt states she is so hungry and is tired today. Therapeutic Exercise Minutes (minutes) 6 Therapeutic Exercise Units 1 Therapeutic Exercise Treatment Seated Ciro LE exs 10x ea for improved strength with cues for larger ROM. Pt needs cues to stay on task. Therapeutic Activity Minutes (minutes) 4 Therapeutic Activity Units 1 Bed Mobility Ability Contact Guard Assist Chair Transfer Ability Minimum Assist Therapeutic Activity Comments Sit to stand transfer from chair needing Min A. Gait training with RW 15 feet CGA for safety. Pt requests to go back to bed as she is very tired. Returned to bed with pt being able to bring her legs up into bed on her own CGA. Total Therapy Minutes 10 Total Physical Therapy Units 2 Daily Note Summary Pt fatigued during rx, at times closing her eyes with cues to try and stay awake. Pt required CGA for safety with gait due to unsteadiness initially upon standing with mild dizziness but this improves. Pt supine post rx with no complaints.
--- NOTE | 2023-04-09 13:25 | CM.NOTE ---
Rounds made with Dr. Rizvi, pt continues to refuse skilled therapy. Pt will discharge today with [facility] .
--- NOTE | 2023-04-09 13:58 | SWNOTE1 ---
SW spoke with pt and significant other, they are open to meals on wheels. Referral sent to [facility] meals on wheels. [facility] is all set and dc orders are sent.
--- NOTE | 2023-04-11 10:29 | CM.DCFOLLOWU ---
Second call back attempted with no answer.
--- NOTE | 2023-04-12 10:37 | CM.DCFOLLOWU ---
Third and final attempt at d/c call back 04/12-No Answer.
== END 2023-04-09 15:13 | disposition home health service (06) | DRG 689 ==
LOC: ER 14:36 → MS 16:27
PROVIDERS: Admitting Provider Family Medicine; Emergency Provider Emergency Medicine; PCP Internal Medicine; Visit Provider Family Medicine
DX: N39.0 Urinary tract infection, site not specified (principal); G93.41 Metabolic encephalopathy; E87.6 Hypokalemia; E11.65 Type 2 diabetes mellitus with hyperglycemia; E78.5 Hyperlipidemia, unspecified; K21.9 Gastro-esophageal reflux disease without esophagitis; I10 Essential (primary) hypertension; Z79.02 Long term (current) use of antithrombotics/antiplatelets; Z79.4 Long term (current) use of insulin; Z79.84 Long term (current) use of oral hypoglycemic drugs; Z79.899 Other long term (current) drug therapy; Z88.5 Allergy status to narcotic agent; Z91.048 Other nonmedicinal substance allergy status
CPT/HCPCS: 36415; 36416; 70450; 71045; 80053; 80307; 81003; 81015; 82140; 82948; 83036; 83605; 84443; 84484; 85025; 87045; 87046; 87086; 87427; 93005; 94761; 94799; 96361; 96365; 96366; 96367; 96372; 96375; 96376; 97110; 97161; 97165; 97530; 97535; 99285; G0378

== ENCOUNTER 2023-04-12 12:18 | Observation (INO) | payer MEDICARE, SELFPAY ==
[2023-04-12] VITALS (10 sets, daily range): BP systolic 131–156; BP diastolic 68–85; PULSE 87–100; RESP 18–20; TEMP 36.7–37.1; O2SAT 94–96; BMI 32.5; BMI 34.2
[2023-04-12 12:37] LABS: Glucometer 185 mg/dL (74-106)
--- NOTE | 2023-04-12 13:07 | PC.NURSE ---
SKIN CARE COMPLETED. PT ARRIVED BY EMS FROM HOME. ACCORDING TO EMS PT HOUSE HAS FECES ALL OVER AND MOLDY FOOD AND BUGS. EMS FOUND PT ON FLOOR COVERED IN URINE AND DRIED STOOL AND FLIES. PT WAS ADMITTED TO HOSPITAL LAST WEEK AND WAS COVERED IN DRIED STOL AT THAT TIME WELL. PT BUTTOCK IS RED AND EXCORIATED AND PAINFUL TO TOUCH.
--- NOTE | 2023-04-12 13:17 | ED_ITS ---
Documented by User: POLI Kilgore 04/12/23 16:17 HPI - General Adult General Chief complaint: Weakness Stated complaint: altered mental status Time Seen by Provider: 04/12/23 13:06 Mode of arrival: ambulance History of Present Illness HPI narrative: patient is a 68-year-old female presents to the Emergency Room with the EMS for evaluation of generalized weakness and inability to care for herself. He received a phone call from her [id number] who is concerned about her welfare. Patient was found lying on the floor covered in feces. Patient is recently admitted to the Emergency Room with urinary tract infection and metabolic encephalopathy on 04/06/23 and discharged on 04/09/23 with oral antibiotics. Patient is diabetic, on insulin products. Patient was suppoosed to have [place] [facility], her follow-up appointment from discharge planning states that she is to see her PCP on 04/17. EMS reported that she had or to see her PCP and was checked out. Patient is alert to her name and that it is Saturday but does not know the year or the month. Patient is aware of the present. Patient is a general poor historian. She complains of no pain or discomfort but states she feels weak and struggles to even sit up in bed. Related Data Home Medications Medication Instructions Recorded Confirmed clopidogrel 75 mg tablet 75 mg PO DAILY 04/06/23 04/12/23 gabapentin 300 mg capsule 300 mg PO Q8H 04/06/23 04/12/23 insulin glargine 100 unit/mL (3 60 unit subcut BID 04/06/23 04/12/23 mL) subcutaneous pen (Lantus Solostar U-100 Insulin) lisinopril 2.5 mg tablet 2.5 mg PO DAILY 04/06/23 04/12/23 metoprolol tartrate 25 mg tablet 12.5 mg PO Q12H 04/06/23 04/12/23 omeprazole 40 mg capsule,delayed 40 mg PO DAILY 04/06/23 04/12/23 release sitagliptin phosphate 100 mg 100 mg PO DAILY 04/06/23 04/12/23 tablet (Januvia) aspirin 325 mg tablet,delayed 325 mg PO DAILY 04/07/23 04/12/23 release (Aspir-Leela) metformin 1,000 mg 24 hr 1,000 mg PO BID 04/07/23 04/12/23 tablet,extended release (Glumetza) atorvastatin 80 mg tablet 80 mg PO DAILY 04/08/23 04/12/23 Previous Rx's Medication Instructions Recorded nitrofurantoin 100 mg PO BID 5 days #10 caps 04/09/23 monohydrate/macrocrystals 100 mg capsule (Macrobid) potassium chloride 10 mEq 20 meq PO BID 10 days #40 tabs 04/09/23 tablet,extended release(part/cryst) (Klor-Con M) Allergies Allergy/AdvReac Type Severity Reaction Status Date / Time adhesive tape AdvReac Mild Verified 04/06/23 17:01 hydrocodone [From Vicodin] AdvReac Mild Nausea Verified 04/06/23 17:01 Review of Systems ROS Status of ROS unobtainable due to mental status Constitutional Denies: fever or chills PFSH PFSH Social History (Updated 04/12/23 @ 18:42 by Amy Womack) Within the past year, how often did you have a drink containing alcohol: never Score interpretation: A score less than 3 is consistent with normal alcohol consumption. Smoking status: Current every day smoker Are you now , , , , never or living with a partner: Exam Narrative Exam Narrative: Nurses notes and vital signs reviewed and patient is not hypoxic. General: The patient appears frail, presents covered in stool. Skin: Warm, dry, no pallor noted. various skin abrasions and sores, no decubitus ulcer appreciated Head: Normocephalic, atraumatic Neck: Supple, trachea mid-line, no tenderness, no lymphadenopathy Eye: Pupils are equal, round and reactive to light, EOMI Ears, Nose, Mouth, and Throat: TM are clear, normal light reflex, oral mucosa is moist, no posterior oropharynx erythema or hypertrophy, uvula is mid-line, mild dry mucous membranes Cardiovascular: Regular Rate and Rhythm Respiratory: Patient is in no distress, no accessory muscle use, lungs are clear to auscultation, no wheezing, rales or rhonchi. Chest Wall: no tenderness Back: non-tender, no CVA tenderness Musculoskeletal: normal ROM, no tenderness, no swelling GI: Normal bowel sounds, no tenderness to palpation, no masses appreciated. No rebound, guarding, or rigidity noted. Neurological: A&O person and day, does not know year, month. She is aware of the current president Psychiatric: Cooperative, patient does not make eye contact with conversation for very long, she does report feeling safe in the home that she is not physically or emotionally abused. Constitutional Vital Signs, click to edit/add: Last Vital Signs Temp 98.7 F 04/12/23 17:56 Pulse 98 H 04/12/23 18:02 Resp 20 04/12/23 17:56 BP 149/68 H 04/12/23 17:56 Pulse Ox 96 04/12/23 17:56 O2 Del Method Room Air 04/12/23 17:56 Course Vital Signs Vital signs: Vital Signs Temperature 98.0 F 04/12/23 12:21 Pulse Rate 100 H 04/12/23 12:21 Respiratory Rate 18 04/12/23 12:21 Blood Pressure 131/76 H 04/12/23 12:21 Pulse Oximetry 95 04/12/23 12:21 Oxygen Delivery Method Room Air 04/12/23 12:21 Temperature 98.7 F 04/12/23 17:56 Pulse Rate 98 H 04/12/23 18:02 Respiratory Rate 20 04/12/23 17:56 Blood Pressure 149/68 H 04/12/23 17:56 Pulse Oximetry 96 04/12/23 17:56 Oxygen Delivery Method Room Air 04/12/23 17:56 Medical Decision Making MDM Narrative Medical decision making narrative: patient presents with generalized weakness, appears not care for in the home. Covered in stool. Arrives via EMS with mixed histories of outpatient follow-up since prior admission. Patient given 1 L IV fluids.patient unable to sit up on her own power and bed. spoke with the patient's brother and [id number] bedside, they were alerted to her needs by the patient's 's cousin. Apparently the patient is not well cared for at home, and this morning the patient's was hospitalized at [facility] for a medical condition heart failure . Subsequent no one is at home to help care for this patient. Family states that the home is in poor repair in in[place] t they have refused in-home help in themselves as family has not been over to visit in years. Patient resting comfortably, she denies any symptoms of chest pain or discomfort, her initial troponin was elevated, repeat troponin was slightly improved. Patient case discussed with Dr. Rizvi, she is very familiar with the patient and is agreeable with admission for observation to trend her enzymes, continue with fluids and social work consultation, as she does not have anyone at home to help with her care with her recently been admitted. Medical Records Medical records reviewed: Yes I reviewed the patient's medical records Medical records narrative: urine culture did not grow specific bacteria, patient has had four CTs of thee head in the past five months. And five CTs of the head in the preceding two years. Lab Data Lab results reviewed: Yes I reviewed the patient's lab results Lab results narrative: Elevated troponin, will repeat in two hours likely elevated myoglobin and CK-MB from lying. Labs: Lab Results 04/12/23 04/12/23 04/12/23 Range/Units 12:22 13:38 13:38 WBC 9.1 (4.0-11.0) 10^3/uL RBC 4.98 (4.20-5.40) 10^6/uL Hgb 14.2 (12.0-16.0) g/dL Hct 43.5 (36.0-48.0) % MCV 87.3 (81.0-99.0) fL MCH 28.5 (26.7-34.0) pg MCHC 32.6 (29.9-35.2) g/dL RDW 13.3 (11.0-15.0) % Plt Count 271 (150-450) 10^3/uL MPV 11.4 (9.5-13.5) fL Neut % (Auto) 63.5 (43.0-75.0) % Lymph % (Auto) 23.9 (20.5-60.0) % [place] % (Auto) 9.6 (1.7-12.0) % Eos % (Auto) 1.5 (0.9-7.0) % Baso % (Auto) 0.4 (0.2-2.0) % Neut # (Auto) 5.8 (1.4-6.5) 10^3/uL Lymph # (Auto) 2.2 (1.2-3.8) 10^3/uL [place] # (Auto) 0.9 H (0.3-0.8) 10^3/uL Eos # (Auto) 0.1 (0.0-0.7) 10^3/uL Baso # (Auto) 0.0 (0.0-0.1) 10^3/uL Abs Immat Gran (auto) 0.10 H (0.00-0.03) 10^3/uL Imm/Tot Granulo (auto) 1.1 H (0.0-0.5) % Sodium 141 (136-145) mmol/L Potassium 4.4 (3.5-5.1) mmol/L Chloride 106 (98-107) mmol/L Carbon Dioxide 24.7 (21.0-32.0) mmol/L Anion Gap 14.7 BUN 19.0 H (7.0-18.0) mg/dL Creatinine 0.91 (0.55-1.02) mg/dL Est GFR ( Amer) >60 (>=60) Est GFR (Non-Af Amer) >60 (>=60) BUN/Creatinine Ratio 20.9 Glucose 243 H (74-106) mg/dL Lactate 1.4 (0.4-2.0) mmol/L Calcium 8.7 (8.5-10.1) mg/dL Total Bilirubin 0.7 (0.2-1.0) mg/dL AST 20 (15-37) U/L ALT 22 (14-59) U/L Alkaline Phosphatase 110 (46-116) U/L Ammonia 20 (11-32) umol/L Total Creatine Kinase 167 (26-192) U/L CK-MB (CK-2) 4.23 H* (<=3.60) ng/mL Myoglobin 207 H (9-82) ng/mL Troponin I High Sens Cancelled 58.7 H* Total Protein 6.6 (6.4-8.2) g/dL Albumin 3.0 L (3.4-5.0) g/dL Globulin 3.6 g/dL Albumin/Globulin Ratio 0.8 TSH 0.937 (0.358-3.740) uIU/mL Urine Color (YELLOW) Urine Clarity (CLEAR) Urine pH (5.0-9.0) Ur Specific [place] (1.005-1.025) Urine Protein (NEG/TRACE) mg/dL Urine Glucose (UA) (NEGATIVE) mg/dL Urine Ketones (NEGATIVE) mg/dL Urine Occult Blood (NEGATIVE) Urine Nitrite (NEGATIVE) Urine Bilirubin (NEGATIVE) Urine Urobilinogen (0.2-1.0) EU/dL Ur Leukocyte Esterase (NEGATIVE) Urine RBC (0-2) #/HPF Urine WBC (NONE SEEN) #/HPF Ur Squamous Epith Cells (NONE/RARE) #/LPF Urine Bacteria (NONE SEEN) #/HPF Urine Mucus (NONE SEEN) Ur Culture Indicated? Ethanol Quant <3 mg/dL POC Glucose 185 H (74-106) mg/dL 04/12/23 04/12/23 04/12/23 Range/Units 14:26 15:27 17:22 WBC (4.0-11.0) 10^3/uL RBC (4.20-5.40) 10^6/uL Hgb (12.0-16.0) g/dL Hct (36.0-48.0) % MCV (81.0-99.0) fL MCH (26.7-34.0) pg MCHC (29.9-35.2) g/dL RDW (11.0-15.0) % Plt Count (150-450) 10^3/uL MPV (9.5-13.5) fL Neut % (Auto) (43.0-75.0) % Lymph % (Auto) (20.5-60.0) % [place] % (Auto) (1.7-12.0) % Eos % (Auto) (0.9-7.0) % Baso % (Auto) (0.2-2.0) % Neut # (Auto) (1.4-6.5) 10^3/uL Lymph # (Auto) (1.2-3.8) 10^3/uL [place] # (Auto) (0.3-0.8) 10^3/uL Eos # (Auto) (0.0-0.7) 10^3/uL Baso # (Auto) (0.0-0.1) 10^3/uL Abs Immat Gran (auto) (0.00-0.03) 10^3/uL Imm/Tot Granulo (auto) (0.0-0.5) % Sodium (136-145) mmol/L Potassium (3.5-5.1) mmol/L Chloride (98-107) mmol/L Carbon Dioxide (21.0-32.0) mmol/L Anion Gap BUN (7.0-18.0) mg/dL Creatinine (0.55-1.02) mg/dL Est GFR ( Amer) (>=60) Est GFR (Non-Af Amer) (>=60) BUN/Creatinine Ratio Glucose (74-106) mg/dL Lactate (0.4-2.0) mmol/L Calcium (8.5-10.1) mg/dL Total Bilirubin (0.2-1.0) mg/dL AST (15-37) U/L ALT (14-59) U/L Alkaline Phosphatase (46-116) U/L Ammonia (11-32) umol/L Total Creatine Kinase (26-192) U/L CK-MB (CK-2) (<=3.60) ng/mL Myoglobin (9-82) ng/mL Troponin I High Sens 57.7 H* 54.7 H* Total Protein (6.4-8.2) g/dL Albumin (3.4-5.0) g/dL Globulin g/dL Albumin/Globulin Ratio TSH (0.358-3.740) uIU/mL Urine Color Yellow (YELLOW) Urine Clarity Clear (CLEAR) Urine pH 5.5 (5.0-9.0) Ur Specific [place] 1.025 (1.005-1.025) Urine Protein 100 A (NEG/TRACE) mg/dL Urine Glucose (UA) 250 A (NEGATIVE) mg/dL Urine Ketones Negative (NEGATIVE) mg/dL Urine Occult Blood Trace-i (NEGATIVE) Urine Nitrite Negative (NEGATIVE) Urine Bilirubin Negative (NEGATIVE) Urine Urobilinogen 0.2 (0.2-1.0) EU/dL Ur Leukocyte Esterase Small A (NEGATIVE) Urine RBC 0-2 (0-2) #/HPF Urine WBC 20-50 A (NONE SEEN) #/HPF Ur Squamous Epith Cells Moderate A (NONE/RARE) #/LPF Urine Bacteria Moderate A (NONE SEEN) #/HPF Urine Mucus Small A (NONE SEEN) Ur Culture Indicated? Yes Ethanol Quant mg/dL POC Glucose (74-106) mg/dL Imaging Data Chest x-ray: Radiologist's impression: HISTORY: weakness ? COMPARISON: No relevant comparison available. ? TECHNIQUE: ap port ? FINDINGS: LUNGS: No significant pulmonary parenchymal abnormalities. VASCULATURE: No increased pulmonary vasculature. PLEURA: No pneumothorax, effusion, or pleural thickening. CARDIAC: No cardiomegaly or cardiac silhouette abnormality. MEDIASTINUM: No visible mass or adenopathy. BONES: No fracture or visible bone lesion. median sternotomy wires OTHER: Negative. ? XR/XR chest 1V IMPRESSION: ? No acute cardiopulmonary abnormality ? ? Electronically authenticated by: CLARENCE AMEZCUA ? Date: 04/12/2023? 14:30 ECG Data Attestation: ?I have reviewed the pertinent ECG results. Interpretation: EKG interpretation: Emergency Department physician interpretation, normal sinus rhythm, no ectopy, no ST segment elevation, normal axis. Discharge Plan Discharge Chief Complaint: Weakness Clinical Impression: Type 2 diabetes mellitus with insulin therapy, Metabolic encephalopathy, Adult failure to thrive, Dehydration, Elevated troponin Patient Disposition: Admitted as Observation Time of Disposition Decision: 16:17 Condition: Good Discharge Date/Time: 04/12/23 17:34 Documented by User: Tito Pruett MD 04/12/23 19:58 HPI - General Adult General Chief complaint: Weakness Stated complaint: altered mental status Time Seen by Provider: 04/12/23 13:06 Related Data Home Medications Medication Instructions Recorded Confirmed clopidogrel 75 mg tablet 75 mg PO DAILY 04/06/23 04/12/23 gabapentin 300 mg capsule 300 mg PO Q8H 04/06/23 04/12/23 insulin glargine 100 unit/mL (3 60 unit subcut BID 04/06/23 04/12/23 mL) subcutaneous pen (Lantus Solostar U-100 Insulin) lisinopril 2.5 mg tablet 2.5 mg PO DAILY 04/06/23 04/12/23 metoprolol tartrate 25 mg tablet 12.5 mg PO Q12H 04/06/23 04/12/23 omeprazole 40 mg capsule,delayed 40 mg PO DAILY 04/06/23 04/12/23 release sitagliptin phosphate 100 mg 100 mg PO DAILY 04/06/23 04/12/23 tablet (Januvia) aspirin 325 mg tablet,delayed 325 mg PO DAILY 04/07/23 04/12/23 release (Aspir-Leela) metformin 1,000 mg 24 hr 1,000 mg PO BID 04/07/23 04/12/23 tablet,extended release (Glumetza) atorvastatin 80 mg tablet 80 mg PO DAILY 04/08/23 04/12/23 Previous Rx's Medication Instructions Recorded nitrofurantoin 100 mg PO BID 5 days #10 caps 04/09/23 monohydrate/macrocrystals 100 mg capsule (Macrobid) potassium chloride 10 mEq 20 meq PO BID 10 days #40 tabs 04/09/23 tablet,extended release(part/cryst) (Klor-Con M) Allergies Allergy/AdvReac Type Severity Reaction Status Date / Time adhesive tape AdvReac Mild Verified 04/06/23 17:01 hydrocodone [From Vicodin] AdvReac Mild Nausea Verified 04/06/23 17:01 [facility] Social History (Updated 04/12/23 @ 18:42 by Amy Womack) Within the past year, how often did you have a drink containing alcohol: never Score interpretation: A score less than 3 is consistent with normal alcohol consumption. Smoking status: Current every day smoker Are you now , , , , never or living with a partner: Exam Constitutional Vital Signs, click to edit/add: Last Vital Signs Temp 98.7 F 04/12/23 17:56 Pulse 98 H 04/12/23 18:02 Resp 20 04/12/23 17:56 BP 149/68 H 04/12/23 17:56 Pulse Ox 96 04/12/23 17:56 O2 Del Method Room Air 04/12/23 17:56 Course Vital Signs Vital signs: Vital Signs Temperature 98.0 F 04/12/23 12:21 Pulse Rate 100 H 04/12/23 12:21 Respiratory Rate 18 04/12/23 12:21 Blood Pressure 131/76 H 04/12/23 12:21 Pulse Oximetry 95 04/12/23 12:21 Oxygen Delivery Method Room Air 04/12/23 12:21 Temperature 98.7 F 07/21/23 17:56 Pulse Rate 98 H 04/12/23 18:02 Respiratory Rate 20 04/12/23 17:56 Blood Pressure 149/68 H 04/12/23 17:56 Pulse Oximetry 96 04/12/23 17:56 Oxygen Delivery Method Room Air 04/12/23 17:56 Medical Decision Making MDM Narrative Medical decision making narrative: patient presents with generalized weakness, appears not care for in the home. Covered in stool. Arrives via EMS with mixed histories of outpatient follow-up since prior admission. Patient given 1 L IV fluids.patient unable to sit up on her own power and bed. spoke with the patient's brother and [id number] bedside, they were alerted to her needs by the patient's 's cousin. Apparently the patient is not well cared for at home, and this morning the patient's was hospitalized at [facility] for a medical condition heart failure . Subsequent no one is at home to help care for this patient. Family states that the home is in poor repair in that they have refused in-home help in themselves as family has not been over to visit in years. Patient resting comfortably, she denies any symptoms of chest pain or discomfort, her initial troponin was elevated, repeat troponin was slightly improved. Patient case discussed with Dr. Rizvi, she is very familiar with the patient and is agreeable with admission for observation to trend her enzymes, continue with fluids and social work consultation, as she does not have anyone at home to help with her care with her recently been admitted. Dr Pruett saw and evaluated the patient in the Emergency Room, along with social worker delinquency prevention [place] [facility] Data Labs: Lab Results 04/12/23 04/12/23 04/12/23 Range/Units 12:22 13:38 13:38 WBC 9.1 (4.0-11.0) 10^3/uL RBC 4.98 (4.20-5.40) 10^6/uL Hgb 14.2 (12.0-16.0) g/dL Hct 43.5 (36.0-48.0) % MCV 87.3 (81.0-99.0) fL MCH 28.5 (26.7-34.0) pg MCHC 32.6 (29.9-35.2) g/dL RDW 13.3 (11.0-15.0) % Plt Count 271 (150-450) 10^3/uL MPV 11.4 (9.5-13.5) fL Neut % (Auto) 63.5 (43.0-75.0) % Lymph % (Auto) 23.9 (20.5-60.0) % [place] % (Auto) 9.6 (1.7-12.0) % Eos % (Auto) 1.5 (0.9-7.0) % Baso % (Auto) 0.4 (0.2-2.0) % Neut # (Auto) 5.8 (1.4-6.5) 10^3/uL Lymph # (Auto) 2.2 (1.2-3.8) 10^3/uL [place] # (Auto) 0.9 H (0.3-0.8) 10^3/uL Eos # (Auto) 0.1 (0.0-0.7) 10^3/uL Baso # (Auto) 0.0 (0.0-0.1) 10^3/uL Abs Immat Gran (auto) 0.10 H (0.00-0.03) 10^3/uL Imm/Tot Granulo (auto) 1.1 H (0.0-0.5) % Sodium 141 (136-145) mmol/L Potassium 4.4 (3.5-5.1) mmol/L Chloride 106 (98-107) mmol/L Carbon Dioxide 24.7 (21.0-32.0) mmol/L Anion Gap 14.7 BUN 19.0 H (7.0-18.0) mg/dL Creatinine 0.91 (0.55-1.02) mg/dL Est GFR ( Amer) >60 (>=60) Est GFR (Non-Af Amer) >60 (>=60) BUN/Creatinine Ratio 20.9 Glucose 243 H (74-106) mg/dL Lactate 1.4 (0.4-2.0) mmol/L Calcium 8.7 (8.5-10.1) mg/dL Total Bilirubin 0.7 (0.2-1.0) mg/dL AST 20 (15-37) U/L ALT 22 (14-59) U/L Alkaline Phosphatase 110 (46-116) U/L Ammonia 20 (11-32) umol/L Total Creatine Kinase 167 (26-192) U/L CK-MB (CK-2) 4.23 H* (<=3.60) ng/mL Myoglobin 207 H (9-82) ng/mL Troponin I High Sens Cancelled 58.7 H* Total Protein 6.6 (6.4-8.2) g/dL Albumin 3.0 L (3.4-5.0) g/dL Globulin 3.6 g/dL Albumin/Globulin Ratio 0.8 TSH 0.937 (0.358-3.740) uIU/mL Urine Color (YELLOW) Urine Clarity (CLEAR) Urine pH (5.0-9.0) Ur Specific [place] (1.005-1.025) Urine Protein (NEG/TRACE) mg/dL Urine Glucose (UA) (NEGATIVE) mg/dL Urine Ketones (NEGATIVE) mg/dL Urine Occult Blood (NEGATIVE) Urine Nitrite (NEGATIVE) Urine Bilirubin (NEGATIVE) Urine Urobilinogen (0.2-1.0) EU/dL Ur Leukocyte Esterase (NEGATIVE) Urine RBC (0-2) #/HPF Urine WBC (NONE SEEN) #/HPF Ur Squamous Epith Cells (NONE/RARE) #/LPF Urine Bacteria (NONE SEEN) #/HPF Urine Mucus (NONE SEEN) Ur Culture Indicated? Ethanol Quant <3 mg/dL POC Glucose 185 H (74-106) mg/dL 04/12/23 04/12/23 04/12/23 Range/Units 14:26 15:27 17:22 WBC (4.0-11.0) 10^3/uL RBC (4.20-5.40) 10^6/uL Hgb (12.0-16.0) g/dL Hct (36.0-48.0) % MCV (81.0-99.0) fL MCH (26.7-34.0) pg MCHC (29.9-35.2) g/dL RDW (11.0-15.0) % Plt Count (150-450) 10^3/uL MPV (9.5-13.5) fL Neut % (Auto) (43.0-75.0) % Lymph % (Auto) (20.5-60.0) % [place] % (Auto) (1.7-12.0) % Eos % (Auto) (0.9-7.0) % Baso % (Auto) (0.2-2.0) % Neut # (Auto) (1.4-6.5) 10^3/uL Lymph # (Auto) (1.2-3.8) 10^3/uL [place] # (Auto) (0.3-0.8) 10^3/uL Eos # (Auto) (0.0-0.7) 10^3/uL Baso # (Auto) (0.0-0.1) 10^3/uL Abs Immat Gran (auto) (0.00-0.03) 10^3/uL Imm/Tot Granulo (auto) (0.0-0.5) % Sodium (136-145) mmol/L Potassium (3.5-5.1) mmol/L Chloride (98-107) mmol/L Carbon Dioxide (21.0-32.0) mmol/L Anion Gap BUN (7.0-18.0) mg/dL Creatinine (0.55-1.02) mg/dL Est GFR ( Amer) (>=60) Est GFR (Non-Af Amer) (>=60) BUN/Creatinine Ratio Glucose (74-106) mg/dL Lactate (0.4-2.0) mmol/L Calcium (8.5-10.1) mg/dL Total Bilirubin (0.2-1.0) mg/dL AST (15-37) U/L ALT (14-59) U/L Alkaline Phosphatase (46-116) U/L Ammonia (11-32) umol/L Total Creatine Kinase (26-192) U/L CK-MB (CK-2) (<=3.60) ng/mL Myoglobin (9-82) ng/mL Troponin I High Sens 57.7 H* 54.7 H* Total Protein (6.4-8.2) g/dL Albumin (3.4-5.0) g/dL Globulin g/dL Albumin/Globulin Ratio TSH (0.358-3.740) uIU/mL Urine Color Yellow (YELLOW) Urine Clarity Clear (CLEAR) Urine pH 5.5 (5.0-9.0) Ur Specific [place] 1.025 (1.005-1.025) Urine Protein 100 A (NEG/TRACE) mg/dL Urine Glucose (UA) 250 A (NEGATIVE) mg/dL Urine Ketones Negative (NEGATIVE) mg/dL Urine Occult Blood Trace-i (NEGATIVE) Urine Nitrite Negative (NEGATIVE) Urine Bilirubin Negative (NEGATIVE) Urine Urobilinogen 0.2 (0.2-1.0) EU/dL Ur Leukocyte Esterase Small A (NEGATIVE) Urine RBC 0-2 (0-2) #/HPF Urine WBC 20-50 A (NONE SEEN) #/HPF Ur Squamous Epith Cells Moderate A (NONE/RARE) #/LPF Urine Bacteria Moderate A (NONE SEEN) #/HPF Urine Mucus Small A (NONE SEEN) Ur Culture Indicated? Yes Ethanol Quant mg/dL POC Glucose (74-106) mg/dL Discharge Plan Discharge Chief Complaint: Weakness Clinical Impression: Type 2 diabetes mellitus with insulin therapy, Metabolic encephalopathy, Adult failure to thrive, Dehydration, Elevated troponin Patient Disposition: Admitted as Observation Time of Disposition Decision: 16:17 Condition: Good Discharge Date/Time: 04/12/23 17:34
--- NOTE | 2023-04-12 13:19 | ECG_ITS ---
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
--- NOTE | 2023-04-12 13:19 | XR_ITS ---
The [address] [address] Patient Name: EMILY HARO MRN: [id number] date: 1955 Sex: F Assigned Patient Location: ER Current Patient Location: ED.MAIN Accession/Order Number: [id number] Exam Date: 04/12/2023 13:52 Report Date: 04/12/2023 14:30 At the request of: ANCA RIOS Procedure: XR chest 1V EXAMINATION: XR chest 1V HISTORY: weakness COMPARISON: No relevant comparison available. TECHNIQUE: ap port FINDINGS: LUNGS: No significant pulmonary parenchymal abnormalities. VASCULATURE: No increased pulmonary vasculature. PLEURA: No pneumothorax, effusion, or pleural thickening. CARDIAC: No cardiomegaly or cardiac silhouette abnormality. MEDIASTINUM: No visible mass or adenopathy. BONES: No fracture or visible bone lesion. median sternotomy wires OTHER: Negative. XR/XR chest 1V IMPRESSION: No acute cardiopulmonary abnormality Electronically authenticated by: MARYAM AMEZCUA Date: 04/12/2023 14:30
[2023-04-12] MEDS: 0.9 % SODIUM CHLORIDE 1,000 ML 999 ML IV (13:31)
[2023-04-12 14:02] LABS: Ammonia 20 umol/L (11-32)
--- NOTE | 2023-04-12 14:06 | SWNOTE1 ---
SW received call from ER nurse and spoke with ER doctor. Pt came in by ambulance, it was reported police and APS called and concerns for living situation. SW notified doctor pt is a precert to go to facility.
[2023-04-12 14:09] LABS: Lactate/Lactic Acid 1.4 mmol/L (0.4-2.0)
[2023-04-12 14:15] LABS: Creatine Kinase 167 U/L (26-192); Myoglobin 207 ng/mL (9-82)
[2023-04-12 14:16] LABS: Alanine Aminotransferase 22 U/L (14-59); Albumin Globulin Ratio 0.8; Alkaline Phosphatase 110 U/L (46-116); Anion Gap 14.7; Aspartate Amino Transferase 20 U/L (15-37); BUN Creatinine Ratio 20.9; Basophils Percent Auto 0.4 % (0.2-2.0); Bilirubin Total 0.7 mg/dL (0.2-1.0); Calcium 8.7 mg/dL (8.5-10.1); Carbon Dioxide 24.7 mmol/L (21.0-32.0); Chloride 106 mmol/L (98-107); Eosinophils Absolute Auto 0.1 10^3/uL (0.0-0.7); Eosinophils Percent Auto 1.5 % (0.9-7.0); Estimated GFR (African America >60 (>=60); Estimated GFR (Non-African Ame >60 (>=60); Globulin 3.6 g/dL; Glucose 243 mg/dL (74-106); Hematocrit 43.5 % (36.0-48.0); Hemoglobin 14.2 g/dL (12.0-16.0); Immature Granulocytes Pct Auto 1.1 % (0.0-0.5); Lymphocytes Absolute Auto 2.2 10^3/uL (1.2-3.8); Lymphocytes Percent Auto 23.9 % (20.5-60.0); Mean Corpuscular HGB Conc 32.6 g/dL (29.9-35.2); Mean Corpuscular Hemoglobin 28.5 pg (26.7-34.0); Mean Corpuscular Volume 87.3 fL (81.0-99.0); Mean Platelet Volume 11.4 fL (9.5-13.5); Monocytes Absolute Auto 0.9 10^3/uL (0.3-0.8); Monocytes Percent Auto 9.6 % (1.7-12.0); Neutrophils Absolute Auto 5.8 10^3/uL (1.4-6.5); Neutrophils Percent Auto 63.5 % (43.0-75.0); Platelet Count 271 10^3/uL (150-450); Potassium 4.4 mmol/L (3.5-5.1); Red Blood Count 4.98 10^6/uL (4.20-5.40); Red Cell Distribution Width 13.3 % (11.0-15.0); Sodium 141 mmol/L (136-145); Total Protein 6.6 g/dL (6.4-8.2); White Blood Count 9.1 10^3/uL (4.0-11.0)
[2023-04-12 14:17] LABS: Thyroid Stimulating Hormone 0.937 uIU/mL (0.358-3.740)
[2023-04-12 14:18] LABS: Creatine Kinase MB 4.23 ng/mL (<=3.60)
[2023-04-12 14:19] LABS: Troponin I High Sensitivity 58.7 pg/mL (4.0-51.3)
[2023-04-12 14:30] LABS: Ethanol <3 mg/dL
[2023-04-12] MEDS: 0.9 % SODIUM CHLORIDE 1,000 ML 125 ML IV (14:37)
[2023-04-12 14:39] LABS: Bilirubin Urine NEGATIVE (NEGATIVE); Blood Urine TRACE-I (NEGATIVE); Clarity Urine CLEAR (CLEAR); Color Urine YELLOW (YELLOW); Glucose Urine UA 250 mg/dL (NEGATIVE); Ketones Urine NEGATIVE (NEGATIVE); Leukocyte Esterase Urine SMALL (NEGATIVE); Nitrite Urine NEGATIVE (NEGATIVE); Protein Urine 100 mg/dL (NEG/TRACE); Specific Gravity Urine 1.025 (1.005-1.025); Urobilinogen Urine 0.2 EU/dL (0.2-1.0); pH Urine 5.5 (5.0-9.0)
[2023-04-12 14:45] LABS: Urine Microscopic Indicated YES
[2023-04-12 14:51] LABS: Bacteria Urine MODERATE #/HPF (NONE SEEN); Mucus Urine SMALL (NONE SEEN); RBC Urine 0-2 #/HPF (0-2); WBC Urine 20-50 #/HPF (NONE SEEN)
[2023-04-12 14:52] LABS: Squamous Epithelial Cell Urine MODERATE #/LPF (NONE/RARE)
[2023-04-12 14:53] LABS: Urine Culture Indicated YES
[2023-04-12 15:55] LABS: Troponin I High Sensitivity 57.7 pg/mL (4.0-51.3)
--- NOTE | 2023-04-12 17:07 | P.HP_ITS ---
H&P: HPI History of Present Illness Chief complaint: altered mental status Narrative: patient is a 68-year-old female with past medical history of hyperlipidemia, insulin-dependent type 2 diabetes, hypertension, GERD who presents with a several day history of altered mental status. Patient was not able to give me a history but per Emergency Room notes the was admitted in [facility] and she has not been caring for herself. Found at home laying in her own feces by family member. She does not provide much of a history on exam on admission. She denies any current complaints or issues. She also seems to get this way when she has not slept but patient cannot tell me when she last slept. Review of Systems ROS Status of ROS unobtainable due to mental status Meds Home Medications and Allergies Home Medications Medication Instructions Recorded Confirmed Type clopidogrel 75 mg tablet 75 mg PO DAILY 04/06/23 04/12/23 History gabapentin 300 mg capsule 300 mg PO Q8H 04/06/23 04/12/23 History insulin glargine 100 unit/mL (3 60 unit subcut BID 04/06/23 04/12/23 History mL) subcutaneous pen (Lantus Solostar U-100 Insulin) lisinopril 2.5 mg tablet 2.5 mg PO DAILY 04/06/23 04/12/23 History metoprolol tartrate 25 mg tablet 12.5 mg PO Q12H 04/06/23 04/12/23 History omeprazole 40 mg capsule,delayed 40 mg PO DAILY 04/06/23 04/12/23 History release sitagliptin phosphate 100 mg 100 mg PO DAILY 04/06/23 04/12/23 History tablet (Januvia) aspirin 325 mg tablet,delayed 325 mg PO DAILY 04/07/23 04/12/23 History release (Aspir-Leela) metformin 1,000 mg 24 hr 1,000 mg PO BID 04/07/23 04/12/23 History tablet,extended release (Glumetza) atorvastatin 80 mg tablet 80 mg PO DAILY 04/08/23 04/12/23 History nitrofurantoin 100 mg PO BID 5 days #10 caps 04/09/23 04/12/23 Rx monohydrate/macrocrystals 100 mg capsule (Macrobid) potassium chloride 10 mEq 20 meq PO BID 10 days #40 tabs 04/09/23 04/12/23 Rx tablet,extended release(part/cryst) (Klor-Con M) Allergies Allergy/AdvReac Type Severity Reaction Status Date / Time adhesive tape AdvReac Mild Verified 04/06/23 17:01 hydrocodone [From Vicodin] AdvReac Mild Nausea Verified 04/06/23 17:01 Exam Narrative Exam Narrative: General: Patient is alert, but not oriented to person, place or time with poor hygiene skin: feces under finger nails Head: atraumatic, acephalic Eyes: PERRLA, no nystagmus present, conjunctiva clear, no scleral icterus Neck: no masses palpated, normal thyroid, no JVD Heart: Normal rate and rhythm, no murmurs/rubs/gallops Lungs: no audible wheezes, crackles and normal breath sounds all lung wooten Abdomen: Normal audible bowel sounds, no distension, No palpable masses, no organomegaly, no rebound/guarding/ or rigidity Musculoskeletal: muscle atrophy noted, ROM is limited due to being in hospital bed, no swelling bilateral lower extremities Vascular: Normal carotid, radial, femoral, posterior tibial, and dorsalis pedis pulses Lymph: no supraclavicular, axillary, or anterior/posterior cervical adenopathy Neuro: CN II-X grossly intact Constitutional Vital Signs, click to edit/add: Last Vital Signs Temp 98.0 F 04/12/23 12:21 Pulse 100 H 04/12/23 12:21 Resp 18 04/12/23 12:21 BP 151/85 H 04/12/23 13:02 Pulse Ox 95 04/12/23 12:21 O2 Del Method Room Air 04/12/23 12:21 Results Labs Labs: Short CBC 04/12/23 Range/Units 13:38 WBC 9.1 (4.0-11.0) 10^3/uL Hgb 14.2 (12.0-16.0) g/dL Hct 43.5 (36.0-48.0) % Plt Count 271 (150-450) 10^3/uL BMP 04/12/23 13:38 Sodium 141 Potassium 4.4 Chloride 106 Carbon Dioxide 24.7 BUN 19.0 H Creatinine 0.91 Glucose 243 H Calcium 8.7 Cardiac Enzymes 04/12/23 Range/Units 13:38 Total Creatine Kinase 167 (26-192) U/L CK-MB (CK-2) 4.23 H* (<=3.60) ng/mL Liver Function 04/12/23 Range/Units 13:38 Total Bilirubin 0.7 (0.2-1.0) mg/dL AST 20 (15-37) U/L ALT 22 (14-59) U/L Alkaline Phosphatase 110 (46-116) U/L Albumin 3.0 L (3.4-5.0) g/dL Urine 04/12/23 Range/Units 14:26 Urine Color Yellow (YELLOW) Urine Clarity Clear (CLEAR) Urine pH 5.5 (5.0-9.0) Ur Specific [place] 1.025 (1.005-1.025) Urine Protein 100 A (NEG/TRACE) mg/dL Urine Glucose (UA) 250 A (NEGATIVE) mg/dL Assessment and Plan Assessment and Plan (1) Metabolic encephalopathy: Assessment and Plan: most likely secondary to the acute urinary tract infection we will place and continue on Rocephin.head CT was negative for any acute stroke; maybe lack of sleep (2) Elevated troponin: Assessment and Plan: trending down, continue to trend until normal, continue statin, aspirin and plavix. no EKG changes, placed on telemetry, echo ordered. most likely due to dehydration (3) UTI (urinary tract infection): Assessment and Plan: start rocephin (4) Hyperglycemia: Assessment and Plan: will continue long-acting insulin as while as well as sliding scale, non- compliance (5) Hypertension: Assessment and Plan: continue metoprolol, lisinopril (6) HLD (hyperlipidemia): Assessment and Plan: continue atorvastatin (7) Dehydration: Assessment and Plan: continue IVF (8) Adult failure to thrive: Assessment and Plan: patient always refuses placement to rehab but will see if she changes her mind this admission. pt/ot (9) Type 2 diabetes mellitus with insulin therapy: Plan PT OT evaluation lovenox for DVT prophylaxis Is a full code Patient is admitted to observation status and is not expected to stay more than two midnights
[2023-04-12 17:58] LABS: Troponin I High Sensitivity 54.7 pg/mL (4.0-51.3)
[2023-04-12 22:00] LABS: Glucometer 172 mg/dL (74-106)
[2023-04-12] MEDS: PANTOPRAZOLE SODIUM 40 MG VIAL IV (22:36)
[2023-04-12] MEDS: GABAPENTIN 300 MG CAPSULE PO (22:36)
[2023-04-12] MEDS: ENOXAPARIN SODIUM 40 MG/0.4 ML SYRINGE SUBQ (22:36)
[2023-04-12] MEDS: POTASSIUM CHLORIDE 10 MEQ ER TABLET 20 MEQ PO (22:36)
[2023-04-12] MEDS: METOPROLOL TARTRATE 25 MG TABLET 12.5 MG PO (22:37)
[2023-04-12] MEDS: LACTATED RINGER'S SOLUTION 1,000 ML 125 ML IV (22:37)
[2023-04-12] MEDS: INSULIN ASPART 300 UNIT/3 ML PEN SUBQ (22:38)
[2023-04-12] MEDS: CEFTRIAXONE 1,000 MG in 0.9 % SODIUM CHLORIDE 50 ML 100 MG IV (22:38)
[2023-04-12] MEDS: INSULIN DETEMIR 300 UNIT/3 ML INSULN.PEN 20 UNIT SUBQ (22:40)
[2023-04-13] VITALS (18 sets, daily range): BP systolic 145–156; BP diastolic 75–88; PULSE 67–97; RESP 18–20; TEMP 36.4–37; O2SAT 91–96
[2023-04-13 04:35] LABS: Basophils Percent Auto 0.3 % (0.2-2.0); Eosinophils Absolute Auto 0.2 10^3/uL (0.0-0.7); Eosinophils Percent Auto 1.9 % (0.9-7.0); Hematocrit 38.2 % (36.0-48.0); Hemoglobin 12.2 g/dL (12.0-16.0); Immature Granulocytes Abs Auto 0.08 10^3/uL (0.00-0.03); Immature Granulocytes Pct Auto 0.9 % (0.0-0.5); Lymphocytes Percent Auto 23.1 % (20.5-60.0); Mean Corpuscular HGB Conc 31.9 g/dL (29.9-35.2); Mean Corpuscular Hemoglobin 28.6 pg (26.7-34.0); Mean Corpuscular Volume 89.5 fL (81.0-99.0); Mean Platelet Volume 11.4 fL (9.5-13.5); Monocytes Absolute Auto 0.9 10^3/uL (0.3-0.8); Monocytes Percent Auto 9.7 % (1.7-12.0); Neutrophils Absolute Auto 5.7 10^3/uL (1.4-6.5); Neutrophils Percent Auto 64.1 % (43.0-75.0); Platelet Count 225 10^3/uL (150-450); Red Blood Count 4.27 10^6/uL (4.20-5.40); Red Cell Distribution Width 13.4 % (11.0-15.0); White Blood Count 8.8 10^3/uL (4.0-11.0)
[2023-04-13 05:03] LABS: Alanine Aminotransferase 16 U/L (14-59); Albumin Globulin Ratio 0.7; Albumin Level 2.5 g/dL (3.4-5.0); Alkaline Phosphatase 93 U/L (46-116); Anion Gap 11.3; Aspartate Amino Transferase 14 U/L (15-37); BUN Creatinine Ratio 18.1; Bilirubin Total 0.4 mg/dL (0.2-1.0); Calcium 8.4 mg/dL (8.5-10.1); Carbon Dioxide 23.7 mmol/L (21.0-32.0); Chloride 110 mmol/L (98-107); Estimated GFR (African America >60 (>=60); Estimated GFR (Non-African Ame >60 (>=60); Globulin 3.5 g/dL; Glucose 171 mg/dL (74-106); Sodium 141 mmol/L (136-145); Thyroid Stimulating Hormone 0.682 uIU/mL (0.358-3.740)
[2023-04-13] MEDS: GABAPENTIN 300 MG CAPSULE PO ×3 (05:36→21:48)
[2023-04-13] MEDS: LACTATED RINGER'S SOLUTION 1,000 ML 125 ML IV ×2 (06:50→14:39)
[2023-04-13 07:42] LABS: Glucometer 131 mg/dL (74-106)
[2023-04-13] MEDS: LISINOPRIL 5 MG TABLET 2.5 MG PO (08:58)
[2023-04-13] MEDS: ATORVASTATIN CALCIUM 40 MG TABLET 80 MG PO (08:58)
[2023-04-13] MEDS: INSULIN DETEMIR 300 UNIT/3 ML INSULN.PEN 20 UNIT SUBQ (08:58)
[2023-04-13] MEDS: METOPROLOL TARTRATE 25 MG TABLET 12.5 MG PO ×2 (08:58→21:48)
[2023-04-13] MEDS: CLOPIDOGREL BISULFATE 75 MG TABLET PO (08:59)
[2023-04-13] MEDS: ASPIRIN 325 MG TABLET.DR PO (08:59)
[2023-04-13] MEDS: SITAGLIPTIN PHOSPHATE 50 MG TABLET 100 MG PO (08:59)
[2023-04-13] MEDS: POTASSIUM CHLORIDE 10 MEQ ER TABLET 20 MEQ PO ×2 (08:59→21:48)
[2023-04-13 11:03] LABS: Glucometer 199 mg/dL (74-106)
[2023-04-13] MEDS: INSULIN ASPART 300 UNIT/3 ML PEN SUBQ ×3 (12:29→21:49)
--- NOTE | 2023-04-13 14:30 | PM.IMPN1 ---
Progress Note: A&P Assessment and Plan (1) Sepsis: Assessment and Plan: HR> 90, RR 20 on presentation with change in mental status. Hemodynamics are stable now Being treated for UTI. Mental status is also back to baseline Qualifiers: Sepsis type: sepsis due to unspecified organism Sepsis acute organ dysfunction status: with acute organ dysfunction Severe sepsis acute organ dysfunction type: encephalopathy Severe sepsis shock status: without septic shock Qualified Code(s): A41.9 - Sepsis, unspecified organism; R65.20 - Severe sepsis without septic shock; G93.40 - Encephalopathy, unspecified (2) Metabolic encephalopathy: Assessment and Plan: sec to sepsis/ UTI. Back to her baseline. (3) UTI (urinary tract infection): Assessment and Plan: Urine cx pending. On IV rocephin Qualifiers: Hematuria presence: without hematuria (4) Elevated troponin: Assessment and Plan: Prior hx of CAD. no CP, SOB, palpitations. Likely from sepsis. On ASA, Plavix, BB, statin 2D ECHO to assess cardiac strucutre. (5) Adult failure to thrive: Assessment and Plan: Suspect underlying dementia. Patient lives with her who is herb caregiver and had not been eating/drinking and was found at her home confused/covered in feces. Her it seems is still in the hospital I was unable to get in touch with him I am unsure of other family members who could could take care of her while is sick and not at home. Social service on consult. Pt will need someone at home to help take care of her meds, ADLs and until we can ensure that, she is not safe to go home without a plan in place. (6) Hypertension: Assessment and Plan: C/w home meds. Monitor. Above goal but will not make any changes. (7) CAD (coronary artery disease): Assessment and Plan: CAD s/p CABG - pt unsure of how long ago she had surgery On ASA, plavix, statin and BB. C/w same. No symptoms concerning for active cardiac ischemia. (8) Type 2 diabetes mellitus with insulin therapy: Assessment and Plan: Poorly controlled likely due to non compliance. On oral meds along with basal/bolus insulin regimen. Lantus 40 units qhs and sliding scale insulin for now while inpatient. (9) Dementia: Assessment and Plan: Lives at home and seems like she is dependent on her for ADLs. Unsure if formally diagnosed and being evaluated for it. I was unable to get in touch with her to get more information on it. Qualifiers: Dementia type: unspecified type Dementia severity: severe Dementia behavioral or psychological symptom: without behavioral, psychotic, or mood disturbance or anxiety Qualified Code(s): F03.C0 - Unspecified dementia, severe, without behavioral disturbance, psychotic disturbance, mood disturbance, and anxiety (10) HLD (hyperlipidemia): Assessment and Plan: C/w lipitor. On it due to CAD/T2 DM (11) Dehydration: Assessment and Plan: Due to poor PO intake. Doing well today Internal Medicine - PN: Subj Subjective Interval history: Seen and examined. No overnight events. Back to her baseline mental status. Exam Constitutional Vital Signs, click to edit/add: Last Vital Signs Temp 97.6 F 04/13/23 04:04 Pulse 72 04/13/23 14:23 Resp 18 04/13/23 04:04 BP 156/88 H 04/13/23 08:58 Pulse Ox 96 04/13/23 04:04 O2 Del Method Room Air 04/13/23 04:04 Documenting provider has reviewed patient's vital signs: yes Common normals: no apparent distress and oriented x3 Nutritional appearance: obese HENMT Common normals: normocephalic and head/scalp atraumatic Eye Common normals: conjunctivae normal and no scleral icterus Respiratory Common normals: normal respiratory effort, no use of accessory muscles and clear to auscultation bilaterally Cardio Common normals: no JVD, S1 normal heart sound, S2 normal heart sound and no murmurs GI Common normals: Normal to inspection, nondistended, normoactive bowel sounds present, soft to palpation, non-tender and no hepatosplenomegaly Extremity Common normals: normal to inspection and full ROM Neuro Common normals: oriented x3, moves all extremities, no focal motor deficits and no sensory deficits noted Psych Common normals: mental status grossly normal, denies homicidal ideation and denies suicidal ideation Appearance: grossly normal Attitude: calm Speech: normal speech Memory/cognition: memory grossly impaired Insight: fair Judgement: fair Internal Medicine - PN: Obj Da Labs Labs: Laboratory Results - last 24 hr 04/12/23 04/12/23 04/12/23 13:38 14:26 15:27 WBC RBC Hgb Hct MCV MCH MCHC RDW Plt Count MPV Neut % (Auto) Lymph % (Auto) [place] % (Auto) Eos % (Auto) Baso % (Auto) Neut # (Auto) Lymph # (Auto) [place] # (Auto) Eos # (Auto) Baso # (Auto) Abs Immat Gran (auto) Imm/Tot Granulo (auto) Sodium 141 Potassium 4.4 Chloride 106 Carbon Dioxide 24.7 Anion Gap 14.7 BUN 19.0 H Creatinine 0.91 Est GFR ( Amer) >60 Est GFR (Non-Af Amer) >60 BUN/Creatinine Ratio 20.9 Glucose 243 H Calcium 8.7 Total Bilirubin 0.7 AST 20 ALT 22 Alkaline Phosphatase 110 Troponin I High Sens Cancelled 57.7 H* Total Protein 6.6 Albumin 3.0 L Globulin 3.6 Albumin/Globulin Ratio 0.8 TSH 0.937 Urine Color Yellow Urine Clarity Clear Urine pH 5.5 Ur Specific [place] 1.025 Urine Protein 100 A Urine Glucose (UA) 250 A Urine Ketones Negative Urine Occult Blood Trace-i Urine Nitrite Negative Urine Bilirubin Negative Urine Urobilinogen 0.2 Ur Leukocyte Esterase Small A Urine RBC 0-2 Urine WBC 20-50 A Ur Squamous Epith Cells Moderate A Urine Bacteria Moderate A Urine Mucus Small A Ur Culture Indicated? Yes Ethanol Quant <3 POC Glucose 04/12/23 04/12/23 04/13/23 17:22 22:00 03:59 WBC 8.8 RBC 4.27 Hgb 12.2 Hct 38.2 MCV 89.5 MCH 28.6 MCHC 31.9 RDW 13.4 Plt Count 225 MPV 11.4 Neut % (Auto) 64.1 Lymph % (Auto) 23.1 [place] % (Auto) 9.7 Eos % (Auto) 1.9 Baso % (Auto) 0.3 Neut # (Auto) 5.7 Lymph # (Auto) 2.0 [place] # (Auto) 0.9 H Eos # (Auto) 0.2 Baso # (Auto) 0.0 Abs Immat Gran (auto) 0.08 H Imm/Tot Granulo (auto) 0.9 H Sodium 141 Potassium 4.0 Chloride 110 H Carbon Dioxide 23.7 Anion Gap 11.3 BUN 15.0 Creatinine 0.83 Est GFR ( Amer) >60 Est GFR (Non-Af Amer) >60 BUN/Creatinine Ratio 18.1 Glucose 171 H Calcium 8.4 L Total Bilirubin 0.4 AST 14 L ALT 16 Alkaline Phosphatase 93 Troponin I High Sens 54.7 H* Total Protein 6.0 L Albumin 2.5 L Globulin 3.5 Albumin/Globulin Ratio 0.7 TSH 0.682 Urine Color Urine Clarity Urine pH Ur Specific [place] Urine Protein Urine Glucose (UA) Urine Ketones Urine Occult Blood Urine Nitrite Urine Bilirubin Urine Urobilinogen Ur Leukocyte Esterase Urine RBC Urine WBC Ur Squamous Epith Cells Urine Bacteria Urine Mucus Ur Culture Indicated? Ethanol Quant POC Glucose 172 H 04/13/23 04/13/23 07:41 11:01 WBC RBC Hgb Hct MCV MCH MCHC RDW Plt Count MPV Neut % (Auto) Lymph % (Auto) [place] % (Auto) Eos % (Auto) Baso % (Auto) Neut # (Auto) Lymph # (Auto) [place] # (Auto) Eos # (Auto) Baso # (Auto) Abs Immat Gran (auto) Imm/Tot Granulo (auto) Sodium Potassium Chloride Carbon Dioxide Anion Gap BUN Creatinine Est GFR ( Amer) Est GFR (Non-Af Amer) BUN/Creatinine Ratio Glucose Calcium Total Bilirubin AST ALT Alkaline Phosphatase Troponin I High Sens Total Protein Albumin Globulin Albumin/Globulin Ratio TSH Urine Color Urine Clarity Urine pH Ur Specific [place] Urine Protein Urine Glucose (UA) Urine Ketones Urine Occult Blood Urine Nitrite Urine Bilirubin Urine Urobilinogen Ur Leukocyte Esterase Urine RBC Urine WBC Ur Squamous Epith Cells Urine Bacteria Urine Mucus Ur Culture Indicated? Ethanol Quant POC Glucose 131 H 199 H Urinary Catheter Management Urinary Catheter Management Urethral: Cath placed during this visit: yes Urethral indwelling: Yes Reason for continuing: measure accurate output Insertion date: 04/12/23 Insertion time: 14:28
[2023-04-13 16:16] LABS: Glucometer 176 mg/dL (74-106)
[2023-04-13] MEDS: OMEPRAZOLE 40 MG CAPSULE.DR PO (17:37)
[2023-04-13] MEDS: CEFTRIAXONE 1,000 MG in 0.9 % SODIUM CHLORIDE 50 ML 100 MG IV (21:48)
[2023-04-13] MEDS: ENOXAPARIN SODIUM 40 MG/0.4 ML SYRINGE SUBQ (21:48)
[2023-04-13] MEDS: 0.9 % SODIUM CHLORIDE 250 ML 100 ML IV (21:48)
[2023-04-13 21:49] LABS: Glucometer 227 mg/dL (74-106)
[2023-04-13] MEDS: INSULIN DETEMIR 300 UNIT/3 ML INSULN.PEN 40 UNIT SUBQ (21:49)
[2023-04-14] VITALS (13 sets, daily range): BP systolic 142–159; BP diastolic 74–82; PULSE 56–88; RESP 18; TEMP 36.7; O2SAT 96
[2023-04-14 04:55] LABS: Basophils Percent Auto 0.5 % (0.2-2.0); Eosinophils Absolute Auto 0.3 10^3/uL (0.0-0.7); Eosinophils Percent Auto 3.7 % (0.9-7.0); Hematocrit 37.1 % (36.0-48.0); Hemoglobin 11.5 g/dL (12.0-16.0); Immature Granulocytes Abs Auto 0.07 10^3/uL (0.00-0.03); Immature Granulocytes Pct Auto 0.9 % (0.0-0.5); Lymphocytes Percent Auto 25.9 % (20.5-60.0); Mean Corpuscular Hemoglobin 28.3 pg (26.7-34.0); Mean Corpuscular Volume 91.4 fL (81.0-99.0); Mean Platelet Volume 11.1 fL (9.5-13.5); Monocytes Absolute Auto 0.8 10^3/uL (0.3-0.8); Monocytes Percent Auto 10.7 % (1.7-12.0); Neutrophils Absolute Auto 4.5 10^3/uL (1.4-6.5); Neutrophils Percent Auto 58.3 % (43.0-75.0); Platelet Count 212 10^3/uL (150-450); Red Blood Count 4.06 10^6/uL (4.20-5.40); Red Cell Distribution Width 13.3 % (11.0-15.0); White Blood Count 7.7 10^3/uL (4.0-11.0)
[2023-04-14] MEDS: GABAPENTIN 300 MG CAPSULE PO ×2 (05:09→13:12)
[2023-04-14 05:25] LABS: Alanine Aminotransferase 15 U/L (14-59); Albumin Globulin Ratio 0.6; Albumin Level 2.2 g/dL (3.4-5.0); Alkaline Phosphatase 89 U/L (46-116); Anion Gap 12.7; Aspartate Amino Transferase 17 U/L (15-37); BUN Creatinine Ratio 15.4; Bilirubin Total 0.1 mg/dL (0.2-1.0); Calcium 8.3 mg/dL (8.5-10.1); Carbon Dioxide 21.8 mmol/L (21.0-32.0); Chloride 110 mmol/L (98-107); Estimated GFR (African America >60 (>=60); Estimated GFR (Non-African Ame >60 (>=60); Globulin 3.4 g/dL; Glucose 183 mg/dL (74-106); Potassium 4.5 mmol/L (3.5-5.1); Sodium 140 mmol/L (136-145); Total Protein 5.6 g/dL (6.4-8.2)
[2023-04-14 07:30] LABS: Glucometer 150 mg/dL (74-106)
[2023-04-14] MEDS: ASPIRIN 325 MG TABLET.DR PO (08:00)
[2023-04-14] MEDS: OMEPRAZOLE 40 MG CAPSULE.DR PO (08:00)
[2023-04-14] MEDS: METOPROLOL TARTRATE 25 MG TABLET 12.5 MG PO (08:00)
[2023-04-14] MEDS: LISINOPRIL 5 MG TABLET 2.5 MG PO (08:00)
[2023-04-14] MEDS: ATORVASTATIN CALCIUM 40 MG TABLET 80 MG PO (08:00)
[2023-04-14] MEDS: POTASSIUM CHLORIDE 10 MEQ ER TABLET 20 MEQ PO (08:00)
[2023-04-14] MEDS: SITAGLIPTIN PHOSPHATE 50 MG TABLET 100 MG PO (08:00)
[2023-04-14] MEDS: CLOPIDOGREL BISULFATE 75 MG TABLET PO (08:00)
[2023-04-14] MEDS: INSULIN ASPART 300 UNIT/3 ML PEN SUBQ ×2 (08:01→12:08)
[2023-04-14 11:15] LABS: Glucometer 159 mg/dL (74-106)
--- NOTE | 2023-04-14 13:09 | P.DS_ITS ---
DS: Providers Provider Date of admission: 04/12/23 17:34 Primary care physician: Non-Staff Physician, Consults: 04/12/23 13:54 Consult to Business English Instructor Routine Reason for consult:: [place] Food/nutrition 04/12/23 16:59 Occupational Therapy Eval and Treat Routine Physical Therapy Eval and Treat Routine 04/13/23 14:40 Occupational Therapy Eval and Treat Routine Physical Therapy Eval and Treat Routine Attending physician on discharge: Shaikh Annalise Discharging clinician: Shaikh Annalise Anticipated date of discharge: 04/14/23 DS: Diagnosis Discharge Diagnosis (1) Sepsis: Assessment and plan: Stable hemodynamics now. Qualifiers: Sepsis type: sepsis due to unspecified organism Sepsis acute organ dysfunction status: with acute organ dysfunction Severe sepsis acute organ dysfunction type: encephalopathy Severe sepsis shock status: without septic shock Qualified Code(s): A41.9 - Sepsis, unspecified organism; R65.20 - Severe sepsis without septic shock; G93.40 - Encephalopathy, unspecified (2) Metabolic encephalopathy: Assessment and plan: Back to baseline. Has dementia at baseline. (3) UTI (urinary tract infection): Assessment and plan: Will d/c home on oral Ceftin x 5 days Qualifiers: Hematuria presence: without hematuria (4) Elevated troponin: Assessment and plan: Likely due to dehydration/sepsis Outpatient f/u with cardiology. (5) Adult failure to thrive: Assessment and plan: Baseline dementia. Unable to take care of herself. Was disheveled, confused, dehydration when left alone while her was admitted in the hospital. He is going to home today and will d/c home d/w briefly about possible long-term care options. (6) Hypertension: Assessment and plan: Resume home meds (7) CAD (coronary artery disease): Assessment and plan: s/p CABG. On DAPT, lipitor and BB (8) Type 2 diabetes mellitus with insulin therapy: Assessment and plan: Poorly controlled likely due to non compliance. Outpatient f/u (9) Dementia: Assessment and plan: Not sure if formally diagnosed. Will need evaluation as outpatient Qualifiers: Dementia type: unspecified type Dementia severity: severe Dementia behavioral or psychological symptom: without behavioral, psychotic, or mood disturbance or anxiety Qualified Code(s): F03.C0 - Unspecified dementia, severe, without behavioral disturbance, psychotic disturbance, mood disturbance, and anxiety (10) HLD (hyperlipidemia): Assessment and plan: c/w statin (11) Dehydration: Assessment and plan: due to poor PO inake. Monitor. DS: Summary Hospital Course Hospital Course: Patient admitted for confusion/change in mental status - admitted for sepsis sec to UTI. She received IVF and IV rocephin with progressive improvement in her clinical symptoms and is back to her baseline. Denies any active complaints. D/w who is her caregiver. He will be discharge home today from the hospital and will pick her up when he gets discharged. Status at Discharge Functional status at discharge: independent ambulation Overall status at discharge: patient is back to baseline Time Spent with Patient Time attestation: Total time spent providing and/or coordinating discharge services: Time spent: greater than 30 minutes Exam Constitutional Vital Signs, click to edit/add: Last Vital Signs Temp 98.1 F 04/14/23 04:56 Pulse 76 04/14/23 11:56 Resp 18 04/14/23 08:07 BP 142/82 H 04/14/23 08:00 Pulse Ox 96 04/14/23 12:05 O2 Del Method Room Air 04/14/23 12:05 Documenting provider has reviewed patient's vital signs: yes Common normals: no apparent distress and oriented x3 Nutritional appearance: obese HENMT Common normals: normocephalic and head/scalp atraumatic Eye Common normals: conjunctivae normal and no scleral icterus Respiratory Common normals: normal respiratory effort, no use of accessory muscles and clear to auscultation bilaterally Cardio Common normals: no JVD, S1 normal heart sound, S2 normal heart sound and no murmurs GI Common normals: Normal to inspection, nondistended, normoactive bowel sounds present, soft to palpation, non-tender and no hepatosplenomegaly Extremity Common normals: normal to inspection and full ROM Neuro Common normals: oriented x3, moves all extremities, no focal motor deficits and no sensory deficits noted Psych Common normals: mental status grossly normal, denies homicidal ideation and denies suicidal ideation Appearance: grossly normal Attitude: calm Speech: normal speech Memory/cognition: memory grossly impaired Insight: fair Judgement: fair DS: Data Data Completed and Pending Labs on day of discharge: Labs from last 24 hours 07/04/14/23 04/14/23 11:14 07:29 04:23 WBC 7.7 RBC 4.06 L Hgb 11.5 L Hct 37.1 MCV 91.4 MCH 28.3 MCHC 31.0 RDW 13.3 Plt Count 212 MPV 11.1 Neut % (Auto) 58.3 Lymph % (Auto) 25.9 [place] % (Auto) 10.7 Eos % (Auto) 3.7 Baso % (Auto) 0.5 Neut # (Auto) 4.5 Lymph # (Auto) 2.0 [place] # (Auto) 0.8 Eos # (Auto) 0.3 Baso # (Auto) 0.0 Abs Immat Gran (auto) 0.07 H Imm/Tot Granulo (auto) 0.9 H Sodium 140 Potassium 4.5 Chloride 110 H Carbon Dioxide 21.8 Anion Gap 12.7 BUN 12.0 Creatinine 0.78 Est GFR ( Amer) >60 Est GFR (Non-Af Amer) >60 BUN/Creatinine Ratio 15.4 Glucose 183 H Calcium 8.3 L Total Bilirubin 0.1 L AST 17 ALT 15 Alkaline Phosphatase 89 Total Protein 5.6 L Albumin 2.2 L Globulin 3.4 Albumin/Globulin Ratio 0.6 POC Glucose 159 H 150 H 04/13/23 04/13/23 21:48 16:15 WBC RBC Hgb Hct MCV MCH MCHC RDW Plt Count MPV Neut % (Auto) Lymph % (Auto) [place] % (Auto) Eos % (Auto) Baso % (Auto) Neut # (Auto) Lymph # (Auto) [place] # (Auto) Eos # (Auto) Baso # (Auto) Abs Immat Gran (auto) Imm/Tot Granulo (auto) Sodium Potassium Chloride Carbon Dioxide Anion Gap BUN Creatinine Est GFR ( Amer) Est GFR (Non-Af Amer) BUN/Creatinine Ratio Glucose Calcium Total Bilirubin AST ALT Alkaline Phosphatase Total Protein Albumin Globulin Albumin/Globulin Ratio POC Glucose 227 H 176 H Discharge Plan Discharge Disposition: Home, Self-Care Condition: Good Discharge Medications: New cefuroxime axetil 500 mg tablet 500 mg PO BID 5 Days Qty: 10 0RF Continued gabapentin 300 mg capsule 300 mg PO Q8H insulin glargine [Lantus Solostar U-100 Insulin] 100 unit/mL (3 mL) insulin pen 60 unit SUBCUT BID lisinopril 2.5 mg tablet 2.5 mg PO DAILY metoprolol tartrate 25 mg tablet 12.5 mg PO Q12H clopidogrel 75 mg tablet 75 mg PO DAILY omeprazole 40 mg capsule,delayed release(DR/EC) 40 mg PO DAILY Januvia 100 mg tablet 100 mg PO DAILY aspirin [Aspir-Leela] 325 mg tablet,delayed release (DR/EC) 325 mg PO DAILY metformin [Glumetza] 1,000 mg tablet,ER remington.retention 24 hr 1,000 mg PO BID atorvastatin 80 mg tablet 80 mg PO DAILY potassium chloride [Klor-Con M10] 10 mEq Tablet,Er Particles/Crystals 20 meq PO BID 10 Days Qty: 40 0RF Discontinued nitrofurantoin monohyd/m-cryst [Macrobid] 100 mg capsule 100 mg PO BID 5 Days Qty: 10 0RF Rx Instructions: must administer with a meal/food Activity: resume usual activities as tolerated Diet: advance to your usual diet Patient Instructions: Dehydration (ED), Urinary Tract Infection in Women (ED), Dementia (ED) Forms: Portal Instructions Follow Up Appointments: PCP in one week
--- NOTE | 2023-04-14 15:17 | PC.NURSE ---
Carpet Loom Fixer asked , who is currently at bedside to order picker patient for discharge, who patient's PCP is. Neither patient or are aware of PCP's name but was able to give keno writer/runner [facility] [place] [facility] on [address] in [place]. Carpet Loom Fixer attempted to look up info to find a doctor's name but there is no doctors listed on website. [facility] phone number added to DC paperwork.
== END 2023-04-14 16:07 | disposition home or self-care (01) ==
LOC: ER 16:55 → MS 17:53
PROVIDERS: Personal Emergency Response Attendant; Admitting Provider Family Medicine; Emergency Provider Emergency Medicine; Visit Provider Internal Medicine
DX: A41.9 Sepsis, unspecified organism (principal); N39.0 Urinary tract infection, site not specified; G93.41 Metabolic encephalopathy; R77.8 Other specified abnormalities of plasma proteins; E11.65 Type 2 diabetes mellitus with hyperglycemia; E86.0 Dehydration; R62.7 Adult failure to thrive; R65.20 Severe sepsis without septic shock; E78.5 Hyperlipidemia, unspecified; I10 Essential (primary) hypertension; K21.9 Gastro-esophageal reflux disease without esophagitis; F03.C0 Unspecified dementia, severe, without behavioral disturbance, psychotic disturbance, mood disturbance, and anxiety; Z79.4 Long term (current) use of insulin; Z79.899 Other long term (current) drug therapy; I25.10 Atherosclerotic heart disease of native coronary artery without angina pectoris; Z95.1 Presence of aortocoronary bypass graft; Z79.82 Long term (current) use of aspirin
CPT/HCPCS: 36415; 36416; 71045; 80053; 80320; 81003; 81015; 82140; 82550; 82553; 82948; 83605; 83874; 84443; 84484; 85025; 87086; 93005; 94761; 96361; 96365; 96366; 96372; 96375; 97162; 99285; G0378

== ENCOUNTER 2023-04-25 15:04 | Inpatient (IN) | payer MEDICARE, SELFPAY ==
[2023-04-25] VITALS (16 sets, daily range): BP systolic 166–185; BP diastolic 76–105; PULSE 103–132; RESP 18–28; TEMP 36.9–37.3; O2SAT 92–100; BMI 26.6; BMI 31.3
--- NOTE | 2023-04-25 15:16 | CT_ITS ---
The [address] [address] Patient Name: EMILY HARO MRN: [id number] date: 1955 Sex: F Assigned Patient Location: ED.MAIN Current Patient Location: ER Accession/Order Number: [id number] Exam Date: 04/25/2023 16:10 Report Date: 04/25/2023 16:59 At the request of: SPENCER MARIA Procedure: CT head/brain wo con TITLE: CT head/brain wo con COMPARISON: None. CLINICAL HISTORY: Weakness. There to thrive TECHNIQUE: 3 mm axial images without contrast. Automated exposure control was utilized. Dose reduction techniques were achieved by using automated exposure control and/or adjustment of mA and/or kV according to patient size and/or use of iterative reconstruction technique. FINDINGS: There is no mass, mass effect, parenchymal hemorrhage, nor subarachnoid hemorrhage. There is mild proximal volume loss and mild hypodensity in the periventricular white matter. The extra-axial and extracranial structures appear normal. The CSF spaces are unremarkable. The skeletal structures are intact. CT/CT head/brain wo con IMPRESSION: NO ACUTE INTRACRANIAL FINDINGS BY CT HEAD WITHOUT CONTRAST Electronically authenticated by: JORDAN ISAAC Date: 04/25/2023 16:59
--- NOTE | 2023-04-25 15:16 | XR_ITS ---
[address] [address] Patient Name: EMILY HARO MRN: [id number] date: 1955 Sex: F Assigned Patient Location: ER Current Patient Location: ED.MAIN Accession/Order Number: [id number] Exam Date: 04/25/2023 15:35 Report Date: 04/25/2023 16:08 At the request of: SPENCER MARIA Procedure: XR chest 1V TITLE: XR chest 1V COMPARISON: March 2023 chest x-ray CLINICAL HISTORY: Weakness TECHNIQUE: One view. FINDINGS: There is a normal cardiac and mediastinal contour.. Previous sternotomy. The pulmonary vascular pattern is normal. The lungs are clear and the pleural margins are sharp. There are no significant skeletal abnormalities. XR/XR chest 1V IMPRESSION: NO ACUTE RADIOGRAPHIC FINDINGS Electronically authenticated by: JORDAN ISAAC Date: 04/25/2023 16:08
--- NOTE | 2023-04-25 15:17 | ECG_ITS ---
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: : 1955 Requested By: Order Number: [id number] Reading MD: CHANDNI GREEN Measurements Intervals [place] Rate: 126 P: 77 ID: [id number] QRS: -16 QRSD: 90 T: 107 QT: 308 QTc: 382 Interpretive Statements 1120 Sinus tachycardia 1470 with occasional supraventricular premature complexes 1570 with occasional ventricular premature complexes 3434 Septal myocardial infarction, age undetermined [address] depression 9150 abnormal ECG Compared to ECG 04/12/2023 13:01:17 ST (T wave) deviation now present Sinus rhythm no longer present Myocardial infarct finding still present Electronically Signed On 04-26-2023 5:53:49 EDT by CHANDNI GREEN
--- NOTE | 2023-04-25 15:18 | XR_ITS ---
The [address] [address] Patient Name: EMILY HARO MRN: [id number] date: 1955 Sex: F Assigned Patient Location: ED.MAIN Current Patient Location: Accession/Order Number: [id number] Exam Date: 04/25/2023 16:10 Report Date: 04/25/2023 17:06 At the request of: SPENCER MARIA Procedure: XR pelvis 1-2V EXAM: XR pelvis 1-2V HISTORY: Weakness COMPARISON: None. TECHNIQUE: Single AP view FINDINGS: There is an irregularly-shaped ossific density projected over the base of the right femoral neck with a shape reminiscent of the greater trochanter. This is compatible with a remote, ununited avulsion fracture of the greater trochanter. Bony architecture is otherwise normal. There is hip joint space narrowing bilaterally, more prominent on the right than on the left. Associated early marginal osteophytosis of the right femoral head and a subcortical cyst at the acetabular roof. The symphysis pubis is narrowed. Sacroiliac joints are mildly narrowed. Vascular calcifications are noted bilaterally. Soft tissues are otherwise unremarkable. XR/XR pelvis 1-2V IMPRESSION: Ossific density projected over the inferior right femoral neck, likely an ununited remote avulsion fracture fragment. Degenerative changes at both hips, more prominent on the right than on the left. No evidence for acute fracture or dislocation. Electronically authenticated by: Sabina BAUER Date: 04/25/2023 17:06
--- NOTE | 2023-04-25 15:19 | ED.GENADUL1 ---
HPI - General Adult General Chief complaint: Weakness Stated complaint: HYPOGLYCEMIA Time Seen by Provider: 04/25/23 15:07 History of Present Illness HPI narrative: patient is a 68-year-old female presents to the emergency department by ambulance after she was found on the floor where she has been lying for several days in her stool. Patient has aa long-standing history of medication noncompliance and difficulty caring for herself. Her does not provide any additional care for her and refuses to clean her or help her at home. EMS reports they have called Adult Protective Services several times for the patient. Patient was found to be hypoglycemic. Oral glucose was given by EMS. Patient is alert and oriented ?1. EMS reports that she was lying on the floor in between the wall and the couch. Patient is asking for water on arrival to the Emergency Room. Related Data Home Medications Medication Instructions Recorded Confirmed clopidogrel 75 mg tablet 75 mg PO DAILY 04/06/23 04/12/23 gabapentin 300 mg capsule 300 mg PO Q8H 04/06/23 04/12/23 insulin glargine 100 unit/mL (3 60 unit subcut BID 04/06/23 04/12/23 mL) subcutaneous pen (Lantus Solostar U-100 Insulin) lisinopril 2.5 mg tablet 2.5 mg PO DAILY 04/06/23 04/12/23 metoprolol tartrate 25 mg tablet 12.5 mg PO Q12H 04/06/23 04/12/23 omeprazole 40 mg capsule,delayed 40 mg PO DAILY 04/06/23 04/12/23 release sitagliptin phosphate 100 mg 100 mg PO DAILY 04/06/23 04/12/23 tablet (Januvia) aspirin 325 mg tablet,delayed 325 mg PO DAILY 04/07/23 04/12/23 release (Aspir-Leela) metformin 1,000 mg 24 hr 1,000 mg PO BID 04/07/23 04/12/23 tablet,extended release (Glumetza) atorvastatin 80 mg tablet 80 mg PO DAILY 04/08/23 04/12/23 Previous Rx's Medication Instructions Recorded potassium chloride 10 mEq 20 meq PO BID 10 days #40 tabs 04/09/23 tablet,extended release(part/cryst) (Klor-Con M) cefuroxime axetil 500 mg tablet 500 mg PO BID 5 days #10 tabs 04/14/23 Allergies Allergy/AdvReac Type Severity Reaction Status Date / Time adhesive tape AdvReac Mild Verified 04/06/23 17:01 hydrocodone [From Vicodin] AdvReac Mild Nausea Verified 04/06/23 17:01 Review of Systems ROS Constitutional Denies: fever or chills Ears, nose, mouth, and throat Denies: throat pain or neck pain Cardiovascular Denies: chest pain Respiratory Denies: shortness of breath or cough Gastrointestinal Denies: nausea or vomiting Integumentary/Breast Reports: rash and skin pain Hematologic/Lymphatic Denies: easy bruising [facility] Medical History (Updated 04/25/23 @ 17:33 by POLI [place]) Surgical History (Updated 04/13/23 @ 14:43 by Shaikh Annalise MD) Social History Within the past year, how often did you have a drink containing alcohol: never Score interpretation: A score less than 3 is consistent with normal alcohol consumption. Smoking status: Former smoker Are you now , , , , never or living with a partner: Exam Narrative Exam Narrative: Gen.: Awake, alert, in no distress Head: Normocephalic, atraumatic; no physical exam findings concerning for head injury ENT: during mucous membranes Respiratory: No respiratory distress, lungs clear bilaterally Cardio: tachycardia, ecchymosis to the left chest wall Gastrointestinal: Abdomen is soft, nondistended and nontender to palpation Extremities: Moves extremities equally, no injuries noted Psych: Normal mood and affect Neuro: No focal neuro deficit Skin: Warm, dry, significant skin breakdown on the buttock and posterior thighs. No deep decubitus ulcers noted, stage I breakdown throughout the skin. Tender with cleaning. Patient is covered in stool on the chest, abdomen, extremities and under the fingernails Constitutional Vital Signs, click to edit/add: Last Vital Signs Pulse 120 H 04/25/23 15:22 Resp 28 H 04/25/23 15:22 BP 184/105 H 04/25/23 15:22 Pulse Ox 98 04/25/23 15:45 O2 Del Method Room Air 04/25/23 15:45 Course Vital Signs Vital signs: Vital Signs Pulse Rate 120 H 04/25/23 15:22 Respiratory Rate 28 H 04/25/23 15:22 Blood Pressure 184/105 H 04/25/23 15:22 Pulse Oximetry 98 04/25/23 15:22 Pulse Rate 120 H 04/25/23 15:22 Respiratory Rate 28 H 04/25/23 15:22 Blood Pressure 184/105 H 04/25/23 15:22 Pulse Oximetry 98 04/25/23 15:45 Oxygen Delivery Method Room Air 04/25/23 15:45 Medical Decision Making MDM Narrative Medical decision making narrative: patient treated with IV fluids, 0.5 mg of IV Ativan as she was agitated after being cleaned by nursing staff. She had extensive stool over her entire body and she was cleaned with soap and water. Skin breakdown was found to her buttocks and posterior legs. A+D Ointment was applied by nursing staff with a diaper. Patient is mildly agitated and confused in the Emergency Room. CTs of the head and C-spine were performed, chest x-ray, pelvis x-ray with no evidence of acute process. EKG shows sinus tachycardia with no other acute abnormalities. Lab studies show the patient has minimal leukocytosis with a white blood cell count of 11.5, no bandemia. A [place] catheter was placed and she was found to have a urinary tract infection. She was treated with IV Rocephin. A 2nd liter of IV fluids were given per sepsis protocol, urine culture and blood cultures are pending. Troponin is minimally elevated, she also has elevated CK, likely from lying on the floor for several days. Discussed with the hospitalist, Dr. Kwon for admission and he is in agreement with treatment plan, he is comfortable with the patient being admitted at this time pending a 2nd troponin which has not resulted yet. services program manager was made aware of the patient as well. Medical Records Medical records reviewed: Yes I reviewed the patient's medical records Lab Data Lab results reviewed: Yes I reviewed the patient's lab results Labs: Lab Results 04/25/23 04/25/23 04/25/23 Range/Units 15:13 15:15 15:31 WBC 11.5 H (4.0-11.0) 10^3/uL RBC 4.71 (4.20-5.40) 10^6/uL Hgb 13.2 (12.0-16.0) g/dL Hct 40.1 (36.0-48.0) % MCV 85.1 (81.0-99.0) fL MCH 28.0 (26.7-34.0) pg MCHC 32.9 (29.9-35.2) g/dL RDW 13.4 (11.0-15.0) % Plt Count 328 (150-450) 10^3/uL MPV 11.1 (9.5-13.5) fL Neut % (Auto) 80.1 H (43.0-75.0) % Lymph % (Auto) 11.1 L (20.5-60.0) % [place] % (Auto) 7.3 (1.7-12.0) % Eos % (Auto) 0.2 L (0.9-7.0) % Baso % (Auto) 0.3 (0.2-2.0) % Neut # (Auto) 9.2 H (1.4-6.5) 10^3/uL Lymph # (Auto) 1.3 (1.2-3.8) 10^3/uL [place] # (Auto) 0.8 (0.3-0.8) 10^3/uL Eos # (Auto) 0.0 (0.0-0.7) 10^3/uL Baso # (Auto) 0.0 (0.0-0.1) 10^3/uL Abs Immat Gran (auto) 0.11 H (0.00-0.03) 10^3/uL Imm/Tot Granulo (auto) 1.0 H (0.0-0.5) % PT 10.4 (9.0-11.6) sec INR 0.98 VBG pH 7.368 (7.330-7.430) VBG pCO2 44.8 (40.0-52.0) mmHg Sodium 142 (136-145) mmol/L Potassium 4.0 (3.5-5.1) mmol/L Chloride 110 H (98-107) mmol/L Carbon Dioxide 24.8 (21.0-32.0) mmol/L Anion Gap 11.2 BUN 20.0 H (7.0-18.0) mg/dL Creatinine 0.87 (0.55-1.02) mg/dL Est GFR ( Amer) >60 (>=60) Est GFR (Non-Af Amer) >60 (>=60) BUN/Creatinine Ratio 23.0 Glucose 113 H (74-106) mg/dL Lactate 1.0 (0.4-2.0) mmol/L Calcium 8.3 L (8.5-10.1) mg/dL Total Bilirubin 0.3 (0.2-1.0) mg/dL AST 42 H (15-37) U/L ALT 17 (14-59) U/L Alkaline Phosphatase 86 (46-116) U/L Ammonia 15 (11-32) umol/L Troponin I High Sens 84.9 H* (4.0-51.3) pg/mL Total Protein 6.8 (6.4-8.2) g/dL Albumin 2.7 L (3.4-5.0) g/dL Globulin 4.1 g/dL Albumin/Globulin Ratio 0.7 TSH 0.675 (0.358-3.740) uIU/mL Urine Color Yellow (YELLOW) Urine Clarity Clear (CLEAR) Urine pH 5.5 (5.0-9.0) Ur Specific [place] 1.025 (1.005-1.025) Urine Protein 100 A (NEG/TRACE) mg/dL Urine Glucose (UA) Negative (NEGATIVE) mg/dL Urine Ketones Negative (NEGATIVE) mg/dL Urine Occult Blood Small A (NEGATIVE) Urine Nitrite Negative (NEGATIVE) Urine Bilirubin Negative (NEGATIVE) Urine Urobilinogen 0.2 (0.2-1.0) EU/dL Ur Leukocyte Esterase Large A (NEGATIVE) Urine RBC 2-5 A (0-2) #/HPF Urine WBC 50-75 A (NONE SEEN) #/HPF Ur Squamous Epith Cells Rare (NONE/RARE) #/LPF Urine Crystals None seen (None Seen) #/HPF Urine Bacteria Trace A (NONE SEEN) #/HPF Urine Casts None seen (NONE SEEN) #/LPF Urine Mucus None seen (NONE SEEN) Urine Yeast Seen A (NONE SEEN) Ur Culture Indicated? Yes POC Glucose 63 L (74-106) mg/dL Imaging Data CT scan - head: Attestation: I have reviewed the pertinent imaging results. Radiologist's impression: Procedure: CT head/brain wo con TITLE: CT head/brain wo con COMPARISON: None. CLINICAL HISTORY: Weakness. There to thrive TECHNIQUE: 3 mm axial images without contrast. Automated exposure control was utilized. Dose reduction techniques were achieved by using automated exposure control and/or adjustment of mA and/or kV according to patient size and/or use of iterative reconstruction technique. FINDINGS: There is no mass, mass effect, parenchymal hemorrhage, nor subarachnoid hemorrhage. There is mild proximal volume loss and mild hypodensity in the periventricular white matter. The extra-axial and extracranial structures appear normal. The CSF spaces are unremarkable. The skeletal structures are intact. IMPRESSION: NO ACUTE INTRACRANIAL FINDINGS BY CT HEAD WITHOUT CONTRAST Electronically authenticated by: JORDAN ISAAC Date: 04/25/2023 16:59 Procedure: CT cervical spine wo con EXAMINATION: CT cervical spine wo con HISTORY: Weakness COMPARISON: None. TECHNIQUE: CT Cervical spine without IV contrast. Coronal and sagittal reformations were performed. Dose reduction techniques were achieved by using automated exposure control and/or adjustment of mA and/or kV according to patient size and/or use of iterative reconstruction technique. FINDINGS: CV JUNCTION: Normal foramen magnum with no Chiari malformation. PARASPINAL: Normal with no visible mass. BONES: No fracture, pars defect, or osseous lesion. OTHER: None. DISC LEVELS: C1-C2: Within normal limits for age. C2-C3: Early degenerative disc disease is present without focal protrusion. The central canal and neural foramina are satisfactorily maintained. There is early facet arthropathy bilaterally. C3-C4: Early degenerative disc disease is present without focal protrusion. The central canal and left foramen are satisfactorily maintained. There is right foraminal stenosis associated with uncovertebral osteophytosis which is more marked on the right than on the left. C4-C5: Early degenerative disc disease is present without focal protrusion. The central canal is satisfactorily maintained. There is mild foraminal stenosis bilaterally associated with facet arthropathy.. C5-C6: Moderate degenerative disc disease is present. A posterior disc/osteophyte complex results in moderate central canal stenosis. There is associated bilateral foraminal stenosis. Bilateral facet arthropathy is noted. C6-C7: Early degenerative disc disease is present without focal protrusion. The central canal is satisfactorily maintained. There is bilateral foraminal stenosis, more marked on the left than on the right. Facet arthropathy is noted bilaterally. C7-T1: Early degenerative disc disease is present without focal protrusion. The central canal and neural foramina are satisfactorily maintained. There is facet arthropathy bilaterally. IMPRESSION: Multilevel cervical spondylosis with moderate central canal stenosis at the C5-C6 level. No evidence for acute fracture or traumatic malalignment. Electronically authenticated by: Sabina BAUER Date: 04/25/2023 17:14 Procedure: XR chest 1V TITLE: XR chest 1V COMPARISON: March 2023 chest x-ray CLINICAL HISTORY: Weakness TECHNIQUE: One view. FINDINGS: There is a normal cardiac and mediastinal contour.. Previous sternotomy. The pulmonary vascular pattern is normal. The lungs are clear and the pleural margins are sharp. There are no significant skeletal abnormalities. IMPRESSION: NO ACUTE RADIOGRAPHIC FINDINGS Electronically authenticated by: JORDAN ISAAC Date: 04/25/2023 16:08 Procedure: XR pelvis 1-2V EXAM: XR pelvis 1-2V HISTORY: Weakness COMPARISON: None. TECHNIQUE: Single AP view FINDINGS: There is an irregularly-shaped ossific density projected over the base of the right femoral neck with a shape reminiscent of the greater trochanter. This is compatible with a remote, ununited avulsion fracture of the greater trochanter. Bony architecture is otherwise normal. There is hip joint space narrowing bilaterally, more prominent on the right than on the left. Associated early marginal osteophytosis of the right femoral head and a subcortical cyst at the acetabular roof. The symphysis pubis is narrowed. Sacroiliac joints are mildly narrowed. Vascular calcifications are noted bilaterally. Soft tissues are otherwise unremarkable. IMPRESSION: Ossific density projected over the inferior right femoral neck, likely an ununited remote avulsion fracture fragment. Degenerative changes at both hips, more prominent on the right than on the left. No evidence for acute fracture or dislocation. Electronically authenticated by: Sabina BAUER Date: 04/25/2023 17:06 ECG Data Attestation: I personally reviewed and interpreted this ECG as follows: (sinus tachycardia at a rate of 126, artifact noted with occasional PVCs, no acute ST elevation. EKG reviewed by attending physician) Discharge Plan Discharge Chief Complaint: Weakness Clinical Impression: Unable to care for self, Weakness, Sepsis, Acute UTI, Dehydration Patient Disposition: Admitted As Inpatient Time of Disposition Decision: 17:32 Prescriptions / Home Meds: No Action gabapentin 300 mg capsule 300 mg PO Q8H insulin glargine [Lantus Solostar U-100 Insulin] 100 unit/mL (3 mL) insulin pen 60 unit SUBCUT BID lisinopril 2.5 mg tablet 2.5 mg PO DAILY metoprolol tartrate 25 mg tablet 12.5 mg PO Q12H clopidogrel 75 mg tablet 75 mg PO DAILY omeprazole 40 mg capsule,delayed release(DR/EC) 40 mg PO DAILY Januvia 100 mg tablet 100 mg PO DAILY aspirin [Aspir-Leela] 325 mg tablet,delayed release (DR/EC) 325 mg PO DAILY metformin [Glumetza] 1,000 mg tablet,ER remington.retention 24 hr 1,000 mg PO BID atorvastatin 80 mg tablet 80 mg PO DAILY potassium chloride [Klor-Con M10] 10 mEq Tablet,Er Particles/Crystals 20 meq PO BID 10 Days Qty: 40 0RF cefuroxime axetil 500 mg tablet 500 mg PO BID 5 Days Qty: 10 0RF Referrals: Physician,Non-Staff, MD [Primary Care Provider] - 1 week
[2023-04-25 15:27] LABS: Glucometer 63 mg/dL (74-106)
[2023-04-25] MEDS: 0.9 % SODIUM CHLORIDE 1,000 ML 1000 ML IV ×2 (15:33→17:36)
[2023-04-25 16:00] LABS: PCO2 VBG 44.8 mmHg (40.0-52.0); pH VBG 7.368 (7.330-7.430)
[2023-04-25 16:04] LABS: Basophils Percent Auto 0.3 % (0.2-2.0); Eosinophils Percent Auto 0.2 % (0.9-7.0); Hematocrit 40.1 % (36.0-48.0); Hemoglobin 13.2 g/dL (12.0-16.0); Immature Granulocytes Abs Auto 0.11 10^3/uL (0.00-0.03); Lymphocytes Absolute Auto 1.3 10^3/uL (1.2-3.8); Lymphocytes Percent Auto 11.1 % (20.5-60.0); Mean Corpuscular HGB Conc 32.9 g/dL (29.9-35.2); Mean Corpuscular Volume 85.1 fL (81.0-99.0); Mean Platelet Volume 11.1 fL (9.5-13.5); Monocytes Absolute Auto 0.8 10^3/uL (0.3-0.8); Monocytes Percent Auto 7.3 % (1.7-12.0); Neutrophils Absolute Auto 9.2 10^3/uL (1.4-6.5); Neutrophils Percent Auto 80.1 % (43.0-75.0); Platelet Count 328 10^3/uL (150-450); Red Blood Count 4.71 10^6/uL (4.20-5.40); Red Cell Distribution Width 13.4 % (11.0-15.0); White Blood Count 11.5 10^3/uL (4.0-11.0)
[2023-04-25] MEDS: DEXTROSE 50 %-WATER 25 GM/50 ML SYRINGE 25 ML IV (16:07)
[2023-04-25 16:17] LABS: Bilirubin Urine NEGATIVE (NEGATIVE); Blood Urine SMALL (NEGATIVE); Clarity Urine CLEAR (CLEAR); Color Urine YELLOW (YELLOW); Glucose Urine UA NEGATIVE (NEGATIVE); Ketones Urine NEGATIVE (NEGATIVE); Leukocyte Esterase Urine LARGE (NEGATIVE); Nitrite Urine NEGATIVE (NEGATIVE); Protein Urine 100 mg/dL (NEG/TRACE); Specific Gravity Urine 1.025 (1.005-1.025); Urobilinogen Urine 0.2 EU/dL (0.2-1.0); pH Urine 5.5 (5.0-9.0)
[2023-04-25 16:19] LABS: Ammonia 15 umol/L (11-32)
[2023-04-25 16:19] LABS: Urine Microscopic Indicated YES
[2023-04-25] MEDS: LORAZEPAM 2 MG/ML 1 ML VIAL 0.5 MG IV (16:19)
[2023-04-25 16:25] LABS: INR 0.98; Prothrombin Time 10.4 sec (9.0-11.6)
[2023-04-25 16:26] LABS: Alanine Aminotransferase 17 U/L (14-59); Albumin Globulin Ratio 0.7; Albumin Level 2.7 g/dL (3.4-5.0); Alkaline Phosphatase 86 U/L (46-116); Anion Gap 11.2; Aspartate Amino Transferase 42 U/L (15-37); Bilirubin Total 0.3 mg/dL (0.2-1.0); Calcium 8.3 mg/dL (8.5-10.1); Carbon Dioxide 24.8 mmol/L (21.0-32.0); Chloride 110 mmol/L (98-107); Estimated GFR (African America >60 (>=60); Estimated GFR (Non-African Ame >60 (>=60); Globulin 4.1 g/dL; Glucose 113 mg/dL (74-106); Sodium 142 mmol/L (136-145); Total Protein 6.8 g/dL (6.4-8.2)
[2023-04-25 16:31] LABS: Bacteria Urine TRACE #/HPF (NONE SEEN); Mucus Urine NONE SEEN (NONE SEEN); WBC Urine 50-75 #/HPF (NONE SEEN)
[2023-04-25 16:32] LABS: Cast Seen? NONE SEEN #/LPF (NONE SEEN); Crystals Seen? None Seen #/HPF (None Seen); Squamous Epithelial Cell Urine RARE #/LPF (NONE/RARE); Urine Culture Indicated YES
[2023-04-25 16:35] LABS: Thyroid Stimulating Hormone 0.675 uIU/mL (0.358-3.740)
[2023-04-25 16:38] LABS: Troponin I High Sensitivity 84.9 pg/mL (4.0-51.3)
[2023-04-25] MEDS: CEFTRIAXONE 1,000 MG in 0.9 % SODIUM CHLORIDE 50 ML 100 MG IV (16:47)
[2023-04-25 16:56] LABS: Creatine Kinase 653 U/L (26-192)
[2023-04-25 17:35] LABS: Glucometer 108 mg/dL (74-106)
[2023-04-25 18:27] LABS: Creatine Kinase 668 U/L (26-192); Creatine Kinase MB 5.85 ng/mL (<=3.60); Troponin I High Sensitivity 90.8 pg/mL (4.0-51.3)
[2023-04-25] MEDS: HYDRALAZINE HCL 20 MG/ML VIAL 10 MG IVP (18:46)
[2023-04-25 20:49] LABS: Glucose 30 mg/dL (74-106)
[2023-04-25] MEDS: DEXTROSE 50 %-WATER 25 GM/50 ML SYRINGE IV (20:51)
[2023-04-25] MEDS: CIPROFLOXACIN IN 5 % DEXTROSE 400 MG/200 ML PIGGYBACK 125 MG IV (21:15)
[2023-04-25 21:44] LABS: Glucometer 112 mg/dL (74-106)
[2023-04-25] MEDS: DEXTROSE 10 % IN WATER 1,000 ML 75 ML IV (23:14)
[2023-04-26] VITALS (9 sets, daily range): BP systolic 162; BP diastolic 86; PULSE 85–111; RESP 18; TEMP 36.7; O2SAT 93–98
[2023-04-26 00:52] LABS: Glucometer 114 mg/dL (74-106)
[2023-04-26 05:15] LABS: Basophils Percent Auto 0.2 % (0.2-2.0); Eosinophils Absolute Auto 0.1 10^3/uL (0.0-0.7); Eosinophils Percent Auto 0.5 % (0.9-7.0); Hematocrit 36.7 % (36.0-48.0); Hemoglobin 12.2 g/dL (12.0-16.0); Immature Granulocytes Abs Auto 0.07 10^3/uL (0.00-0.03); Immature Granulocytes Pct Auto 0.8 % (0.0-0.5); Lymphocytes Absolute Auto 1.4 10^3/uL (1.2-3.8); Lymphocytes Percent Auto 14.9 % (20.5-60.0); Mean Corpuscular HGB Conc 33.2 g/dL (29.9-35.2); Mean Corpuscular Hemoglobin 28.2 pg (26.7-34.0); Mean Platelet Volume 11.1 fL (9.5-13.5); Monocytes Absolute Auto 0.9 10^3/uL (0.3-0.8); Monocytes Percent Auto 9.6 % (1.7-12.0); Neutrophils Absolute Auto 6.8 10^3/uL (1.4-6.5); Platelet Count 295 10^3/uL (150-450); Red Blood Count 4.32 10^6/uL (4.20-5.40); Red Cell Distribution Width 13.5 % (11.0-15.0); White Blood Count 9.2 10^3/uL (4.0-11.0)
[2023-04-26 05:42] LABS: Anion Gap 12.9; BUN Creatinine Ratio 18.2; Calcium 7.7 mg/dL (8.5-10.1); Carbon Dioxide 22.6 mmol/L (21.0-32.0); Chloride 109 mmol/L (98-107); Estimated GFR (African America >60 (>=60); Estimated GFR (Non-African Ame >60 (>=60); Glucose 104 mg/dL (74-106); Potassium 3.5 mmol/L (3.5-5.1); Sodium 141 mmol/L (136-145)
[2023-04-26 05:49] LABS: Creatine Kinase 670 U/L (26-192)
[2023-04-26 05:50] LABS: Creatine Kinase MB 16.18 ng/mL (<=3.60); Myoglobin 334 ng/mL (9-82)
--- NOTE | 2023-04-26 06:41 | ECG_ITS ---
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 Instructor: : 1955 Requested By: CHANDNI GREEN Order Number: [id number] Reading MD: CHANDNI GREEN Measurements Intervals [place] Rate: 108 P: 49 MA: 160 QRS: -38 QRSD: 91 T: 114 QT: 357 QTc: 480 Interpretive Statements SINUS TACHYCARDIA WITH OCCASIONAL SUPRAVENTRICULAR PREMATURE COMPLEXES POSSIBLE LEFT ATRIAL ENLARGEMENT [-0.1mV P WAVE IN V1/V2] MARKED LEFT AXIS DEVIATION [QRS AXIS < -30] SEPTAL MYOCARDIAL INFARCTION [40+ ms Q WAVE IN V1/V2], PROBABLY OLD Compared to ECG 04/25/2023 15:19:37 Left-axis deviation now present Ventricular premature complex(es) no longer present ST (T wave) deviation no longer present Myocardial infarct finding still present Electronically Signed On 04-30-2023 6:32:22 EDT by CHANDNI GREEN
[2023-04-26 07:51] LABS: Glucometer 103 mg/dL (74-106)
--- NOTE | 2023-04-26 08:09 | SWNOTE1 ---
SW did receive a phone call from nurse in ER in regards to pt being admitted and concerns for pt at home. SW is aware of who pt is and is aware adult protective services has been called several times in regards to pt's condition at home. Pt has also been set up with home health when discharged from hospital. Pt has been offered halfway facility several times as well, but once pt is alert and oriented, pt refuses.
--- NOTE | 2023-04-26 09:02 | P.HP_ITS ---
H&P: HPI History of Present Illness Chief complaint: HYPOGLYCEMIA, UTI, Sepsis Narrative: Sinus tachycardia, respiratory distress, increasing weakness, leukocytosis secondary to acute NSTEMI. Admitted for work-up and treatment of same complicating the courses of the tachycardia could be related to acute UTI as well. Leukocytosis. Review of Systems ROS Constitutional Denies: fever or chills Eyes Denies: change in vision Ears, nose, mouth, and throat Denies: throat pain Cardiovascular Reports: palpitations, edema, swelling of feet/ankles and shortness of breath with exertion; Denies: chest pain Gastrointestinal Denies: abdominal pain Musculoskeletal Denies: back pain [facility] Medical History Surgical History (Updated 04/13/23 @ 14:43 by Shaikh Annalise MD) Social History Within the past year, how often did you have a drink containing alcohol: never Score interpretation: A score less than 3 is consistent with normal alcohol consumption. Smoking status: Former smoker Are you now , , , , never or living with a partner: Gender Identity: female Meds Home Medications and Allergies Home Medications Medication Instructions Recorded Confirmed Type clopidogrel 75 mg tablet 75 mg PO DAILY 04/06/23 04/25/23 History gabapentin 300 mg capsule 300 mg PO Q8H 04/06/23 04/25/23 History insulin glargine 100 unit/mL (3 60 unit subcut BID 04/06/23 04/25/23 History mL) subcutaneous pen (Lantus Solostar U-100 Insulin) lisinopril 2.5 mg tablet 2.5 mg PO DAILY 04/06/23 04/25/23 History metoprolol tartrate 25 mg tablet 12.5 mg PO Q12H 04/06/23 04/25/23 History omeprazole 40 mg capsule,delayed 40 mg PO DAILY 04/06/23 04/25/23 History release sitagliptin phosphate 100 mg 100 mg PO DAILY 04/06/23 04/25/23 History tablet (Januvia) aspirin 325 mg tablet,delayed 325 mg PO DAILY 04/07/23 04/25/23 History release (Aspir-Leela) metformin 1,000 mg 24 hr 1,000 mg PO BID 04/07/23 04/12/23 History tablet,extended release (Glumetza) atorvastatin 80 mg tablet 80 mg PO DAILY 04/08/23 04/25/23 History Allergies Allergy/AdvReac Type Severity Reaction Status Date / Time adhesive tape AdvReac Mild Verified 04/06/23 17:01 hydrocodone [From Vicodin] AdvReac Mild Nausea Verified 04/06/23 17:01 Exam Constitutional Vital Signs, click to edit/add: Last Vital Signs Temp 98.1 F 04/26/23 05:43 Pulse 95 H 04/26/23 07:57 Resp 18 04/26/23 05:43 BP 162/86 H 04/26/23 05:43 Pulse Ox 96 04/26/23 05:43 O2 Del Method Room Air 04/26/23 04:22 Documenting provider has reviewed patient's vital signs: yes Common normals: apparent distress General appearance: in distress Chest Common normals: inspection of chest normal Respiratory Common normals: normal respiratory effort and no retractions Auscultation: rales and diminished lung sounds Cardio Common normals: no murmurs Rate: tachycardic GI Common normals: Normal to inspection, nondistended, normoactive bowel sounds present Extremity Common normals: normal to inspection (1-2 Plus edema) Results Labs Labs: Short CBC 04/25/23 04/26/23 Range/Units 15:31 04:29 WBC 11.5 H 9.2 (4.0-11.0) 10^3/uL Hgb 13.2 12.2 (12.0-16.0) g/dL Hct 40.1 36.7 (36.0-48.0) % Plt Count 328 295 (150-450) 10^3/uL BMP 04/25/23 04/25/23 04/26/23 15:31 20:19 04:29 Sodium 142 141 Potassium 4.0 3.5 Chloride 110 H 109 H Carbon Dioxide 24.8 22.6 BUN 20.0 H 14.0 Creatinine 0.87 0.77 Glucose 113 H 30 L* 104 Calcium 8.3 L 7.7 L Cardiac Enzymes 04/25/23 04/25/23 04/26/23 Range/Units 15:31 17:54 04:29 Total Creatine Kinase 653 H* 668 H* 670 H* (26-192) U/L CK-MB (CK-2) 5.85 H* 16.18 H* (<=3.60) ng/mL Liver Function 04/25/23 Range/Units 15:31 Total Bilirubin 0.3 (0.2-1.0) mg/dL AST 42 H (15-37) U/L ALT 17 (14-59) U/L Alkaline Phosphatase 86 (46-116) U/L Albumin 2.7 L (3.4-5.0) g/dL Urine 04/25/23 Range/Units 15:15 Urine Color Yellow (YELLOW) Urine Clarity Clear (CLEAR) Urine pH 5.5 (5.0-9.0) Ur Specific [place] 1.025 (1.005-1.025) Urine Protein 100 A (NEG/TRACE) mg/dL Urine Glucose (UA) Negative (NEGATIVE) mg/dL ABG ABG results: 04/25/23 15:31 VBG pH 7.368 VBG pCO2 44.8 Assessment and Plan Assessment and Plan (1) Sepsis: (2) Acute UTI: (3) Dehydration: (4) Weakness: (5) CAD (coronary artery disease): (6) Elevated troponin: (7) Hyperglycemia: Plan Tachycardia, respiratory distress, elevated CK, elevated CK-MB, elevated high- sensitivity troponin and is now progressed to severely elevated. Initial troponin is less than 100, now over thousand. Check on BNP, repeated EKG shows no acute ST wave changes. So acute NSTEMI-start patient on heparin drip, beta- kayla, nitrates, continue aspirin. Held Plavix. Discussed case with cardiology at [facility] who agreed to accept patient in transfer for urgent heart catheterization. Place patient n.p.o. Sepsis with tachycardia, leukocytosis, source of infection being acute UTI-IV antibiotics, cultures from blood and urine are pending. Continue with IV rehydration Severe hypocalcemia-supplement, patient currently n.p.o. we will supplement later Patient admitted with sepsis-patient had several episodes of nonsustained ventricular tachycardia, repeat work-up for cardiac etiology found patient to have an acute NSTEMI-could have been present on admission, borderline elevated troponins at the time, patient inpatient criteria secondary to acute NSTEMI with sepsis. Discussed case with [facility] who agreed to accept patient in transfer once bed is available. Historically that can take 1 to 2 days. Patient overall stable. Continue with IV medical therapy for sepsis and acute NSTEMI
--- NOTE | 2023-04-26 09:42 | CM.NOTE ---
Rounds made with Dr. Kwon, discussed with pt possible transfer to [facility] for elevated troponin. Dr. Kwon will reach out to on-call cardiology for plan of care.
[2023-04-26] MEDS: CIPROFLOXACIN IN 5 % DEXTROSE 400 MG/200 ML PIGGYBACK 200 MG IV (09:43)
[2023-04-26 09:54] LABS: INR 1.06; Partial Thromboplastin Time 31.3 sec (22.3-36.2); Prothrombin Time 11.2 sec (9.0-11.6)
[2023-04-26] MEDS: GABAPENTIN 300 MG CAPSULE PO (09:54)
[2023-04-26] MEDS: METOPROLOL TARTRATE 25 MG TABLET PO (09:54)
[2023-04-26] MEDS: ASPIRIN 325 MG TABLET.DR PO (09:54)
[2023-04-26 10:28] LABS: Myoglobin 213 ng/mL (9-82)
[2023-04-26 10:38] LABS: Creatine Kinase 545 U/L (26-192); Creatine Kinase MB 14.46 ng/mL (<=3.60)
--- NOTE | 2023-04-26 11:36 | SWNOTE1 ---
Pt is being transferred to [facility]
[2023-04-26 12:04] LABS: Glucometer 103 mg/dL (74-106)
[2023-05-03 08:02] LABS: SARS-CoV-2 Ag NEGATIVE (NEGATIVE); SARS-CoV-2 NAA DETECTED (NOT DETECTE)
== END 2023-04-26 12:25 | disposition short-term general hospital (02) | DRG 871 ==
LOC: ER 18:00 → MS 04-26 08:36
PROVIDERS: Internal Medicine; Physician Assistant; Admitting Provider Family Medicine; Emergency Provider Emergency Medicine; Visit Provider Family Medicine
DX: A41.9 Sepsis, unspecified organism (principal); I21.4 Non-ST elevation (NSTEMI) myocardial infarction; N39.0 Urinary tract infection, site not specified; I25.10 Atherosclerotic heart disease of native coronary artery without angina pectoris; E16.2 Hypoglycemia, unspecified; E83.51 Hypocalcemia; R06.03 Acute respiratory distress; R53.1 Weakness; E86.0 Dehydration; Z87.891 Personal history of nicotine dependence; Z63.8 Other specified problems related to primary support group; Z79.82 Long term (current) use of aspirin; Z79.02 Long term (current) use of antithrombotics/antiplatelets; Z79.4 Long term (current) use of insulin; Z79.84 Long term (current) use of oral hypoglycemic drugs; Z79.899 Other long term (current) drug therapy; Z88.5 Allergy status to narcotic agent; Z91.048 Other nonmedicinal substance allergy status
CPT/HCPCS: 36415; 70450; 71045; 72125; 72170; 80048; 80053; 81001; 81003; 82140; 82550; 82553; 82800; 82947; 82948; 83605; 83874; 83880; 84443; 84484; 85025; 85610; 85730; 87040; 87086; 87106; 87635; 87811; 93005; 94761; 96361; 96365; 96366; 96375; 97163; 97165; 99285; G0378

== ENCOUNTER 2023-07-28 19:47 | Inpatient (IN) | payer MEDICARE, SELFPAY ==
[2023-07-28] VITALS (24 sets, daily range): BP systolic 119–150; BP diastolic 80–92; PULSE 95–116; RESP 15–34; TEMP 36.8–36.9; O2SAT 76–99; BMI 28.7
--- NOTE | 2023-07-28 20:04 | CT_ITS ---
The [address] [address] Patient Name: EMILY HARO MRN: [id number] date: 1955 Sex: F Assigned Patient Location: ER Current Patient Location: ER Accession/Order Number: [id number] Exam Date: 07/28/2023 20:28 Report Date: 07/28/2023 21:50 At the request of: ANCA RIOS Procedure: CT head/brain wo con EXAMINATION: CT head/brain wo con, , 07/28/2023 8:28 PM EST INDICATION: fall, ? loc HISTORY: Ordering Provider Reason for Exam: fall, ? loc Technologist Note: Additional: COMPARISON: CT head/brain wo con Study Date: 04/25/2023 TECHNIQUE: CT scan of the head was performed without IV contrast. CT dose reduction technique was used, including Automated Exposure Control. FINDINGS: Ventricles and sulci are normal in size and configuration. No extra-axial collection. No intracranial hemorrhage. No mass effect or edema. No CT evidence of large territorial infarction. Visualized paranasal sinuses are well aerated. Mastoids are clear. Calvarium is unremarkable. CT/CT head/brain wo con IMPRESSION: No intracranial hemorrhage or mass effect. Electronically authenticated by: PRIYANK KENDALL Date: 07/28/2023 21:50
--- NOTE | 2023-07-28 20:04 | XR_ITS ---
The [address] [address] Patient Name: EMILY HARO MRN: [id number] date: 1955 Sex: F Assigned Patient Location: ER Current Patient Location: ER Accession/Order Number: [id number] Exam Date: 07/28/2023 20:28 Report Date: 07/28/2023 21:51 At the request of: ANCA RIOS Procedure: XR hip RT 2V w/ pelvis EXAM: XR hip RT 2V w/ pelvis HISTORY: COMPARISON: X-rays 01/06/2023 TECHNIQUE: 3 views FINDINGS: No acute osseous lesion, fracture, dislocation or subluxation. Old displaced fracture of the right greater trochanter. No change with the prior study. Joint spaces are unremarkable for patient's age. No visualized effusion. Atherosclerosis of the vascular structures. XR/XR hip RT 2V w/ pelvis IMPRESSION: No acute abnormality Electronically authenticated by: MARYAM MCKNIGHT Date: 07/28/2023 21:51
--- NOTE | 2023-07-28 20:04 | XR_ITS ---
The [address] [address] Patient Name: EMILY HAOR MRN: [id number] date: 1955 Sex: F Assigned Patient Location: ER Current Patient Location: ER Accession/Order Number: [id number] Exam Date: 07/28/2023 20:28 Report Date: 07/28/2023 21:49 At the request of: ANCA RIOS Procedure: XR chest 1V EXAMINATION: XR chest 1V HISTORY: Fall COMPARISON: Chest x-ray 04/25/2020 TECHNIQUE: Portable chest FINDINGS: The lung parenchyma is free of consolidation or infiltrate. No pneumothorax or pleural effusion. Is post median sternotomy. The cardiac, mediastinal and hilar contours are normal. The visualized osseous structures exhibit no gross abnormality. XR/XR chest 1V IMPRESSION: No acute cardiopulmonary abnormality. Electronically authenticated by: MARYAM MCKNIGHT Date: 07/28/2023 21:49
--- NOTE | 2023-07-28 20:06 | ECG_ITS ---
The [facility] Test Date: 2023-07-28 Pat Name: EMILY HARO Department: Room: - Gender: Female Bond Clerk: : 1955 Requested By: Order Number: [id number] Reading MD: CHANDNI GREEN Measurements Intervals [place] Rate: 106 P: 80 IA: 140 QRS: -23 QRSD: 84 T: 108 QT: 346 QTc: 408 Interpretive Statements 1120 Sinus tachycardia 4068 Nonspecific [place] abnormality 6220 Possible left atrial enlargement 7202 Moderate left axis deviation 9140 abnormal rhythm ECG Compared to ECG 04/26/2023 07:47:38 Myocardial infarct finding no longer present Electronically Signed On 07-31-2023 7:01:41 EST by CHANDNI GREEN
--- NOTE | 2023-07-28 20:08 | ED_ITS ---
Documented by User: POLI Kilgore 07/28/23 21:01 HPI - General Adult General Chief complaint: Fall Stated complaint: FALL Time Seen by Provider: 07/28/23 20:00 Source: patient and medical record Mode of arrival: ambulance Limitations: no limitations History of Present Illness HPI narrative: patient is a 68-year-old female presents to the Emergency Room with concerns of right hip pain. Patient reports pain mild to moderate. States she slid off the edge of her bed landing on her right hip. patient alert and oriented to person and place. She admits to not remembering the fall. Patient denies any nausea or vomiting. She denies any visual disturbance or headache. EMS reported they had to pick her up off the floor, very poor living accommodations with house recently condemned by the [employer], no active running water, at home has been asked to leave the premises. Patient appears on, feces described in the home by EMS. Patient notes pain to her right hip as mild to moderate, but she has not been ambulatory since the fall. Severity: mild ( I don't want anything stronger than tylenol. ) Related Data Home Medications Medication Instructions Recorded Confirmed clopidogrel 75 mg tablet 75 mg PO DAILY 04/06/23 04/25/23 gabapentin 300 mg capsule 300 mg PO Q8H 04/06/23 04/25/23 insulin glargine 100 unit/mL (3 60 unit subcut BID 04/06/23 04/25/23 mL) subcutaneous pen (Lantus Solostar U-100 Insulin) lisinopril 2.5 mg tablet 2.5 mg PO DAILY 04/06/23 04/25/23 metoprolol tartrate 25 mg tablet 12.5 mg PO Q12H 04/06/23 04/25/23 omeprazole 40 mg capsule,delayed 40 mg PO DAILY 04/06/23 04/25/23 release sitagliptin phosphate 100 mg 100 mg PO DAILY 04/06/23 04/25/23 tablet (Januvia) aspirin 325 mg tablet,delayed 325 mg PO DAILY 04/07/23 04/25/23 release (Aspir-Leela) metformin 1,000 mg 24 hr 1,000 mg PO BID 04/07/23 04/12/23 tablet,extended release (Glumetza) atorvastatin 80 mg tablet 80 mg PO DAILY 04/08/23 04/25/23 Allergies Allergy/AdvReac Type Severity Reaction Status Date / Time adhesive tape AdvReac Mild Verified 04/06/23 17:01 hydrocodone [From Vicodin] AdvReac Mild Nausea Verified 04/06/23 17:01 Review of Systems ROS Constitutional Denies: fever or chills Eyes Denies: change in vision Ears, nose, mouth, and throat Denies: throat pain or neck pain Cardiovascular Denies: chest pain or palpitations Respiratory Denies: shortness of breath or cough Gastrointestinal Denies: abdominal pain, nausea or vomiting Genitourinary Denies: painful urination, urinary frequency or urinary urgency Musculoskeletal Reports: extremity pain (right hip); Denies: back pain, neck pain or extremity swelling Integumentary/Breast Reports: sores (bilateral feet); Denies: rash, itching, redness, skin pain or skin tenderness Psychiatric Denies: anxiety Allergic/Immunologic Denies: hives PFSH PFS Medical History Surgical History (Updated 04/13/23 @ 14:43 by Shaikh Annalise MD) Hx of CABG ?Z95.1 - Presence of aortocoronary bypass graft (ICD-10) Social History Within the past year, how often did you have a drink containing alcohol: never Score interpretation: A score less than 3 is consistent with normal alcohol consumption. Smoking status: Current every day smoker Are you now , , , , never or living with a partner: Gender Identity: female Exam Narrative Exam Narrative: Nurses notes and vital signs reviewed and patient is not hypoxic. General: the patient appears unclean covered with dried skin in feces. Nurse bathing at bedside Skin: Warm, dry, no pallor noted. suspect yeast and abdominal pannus skin fold. Skin appears excoriated and raw. Patient has dried blisters/scabbing to the bilateral feet. Head: Normocephalic, atraumatic Neck: Supple, trachea mid-line, no tenderness, no lymphadenopathy Eye: Pupils are equal, round and reactive to light, EOMI Ears, Nose, Mouth, and Throat: sternal exam unremarkable Cardiovascular: Regular Rate and Rhythm Respiratory: Patient is in no distress, no accessory muscle use, lungs are clear to auscultation, no wheezing, rales or rhonchi. Chest Wall: no tenderness Back: non-tender, no CVA tenderness, no visible decubitus ulcer Musculoskeletal: suspect abrasion to the right lateral hip versus erythema from lying on right side. Blanching in with palpation of the right lateral hip. Knee ankle and foot nontender. GI: Normal bowel sounds, no tenderness to palpation, no masses appreciated. No rebound, guarding, or rigidity noted. Neurological: A&O x4 Psychiatric: Cooperative Constitutional Vital Signs, click to edit/add: Last Vital Signs Temp 98.3 F 07/28/23 19:57 Pulse 95 H 07/28/23 21:30 Resp 20 07/28/23 21:30 BP 119/86 07/28/23 21:08 Pulse Ox 99 07/28/23 21:30 O2 Del Method Room Air 07/28/23 21:30 Course Vital Signs Vital signs: Vital Signs Pulse Oximetry 99 07/28/23 19:55 Temperature 98.3 F 07/28/23 19:57 Pulse Rate 95 H 07/28/23 21:30 Respiratory Rate 20 07/28/23 21:30 Blood Pressure 119/86 07/28/23 21:08 Pulse Oximetry 99 07/28/23 21:30 Oxygen Delivery Method Room Air 07/28/23 21:30 Medical Decision Making MDM Narrative Medical decision making narrative: poor living conditions, patient Carlos on floor for unknown time, right lateral hip pain status post fall. CT of the head and neck performed given her history of Plavix use. Is unsure if patient has been compliant with her medications given her home state per EMS. House has been condemned. Patient required significant nurse care for cleaning with feces and cigarettes found in her skin folds. [facility] and advised that the patient was found on the ground at 8 AM. She refused for him to call EMS and subsequently laid on the ground for the next 12 hours until EMS was called. Lab Data Labs: Lab Results 07/28/23 07/28/23 07/28/23 Range/Units 20:32 21:20 22:17 WBC 12.5 H (4.0-11.0) 10^3/uL RBC 4.93 (4.20-5.40) 10^6/uL Hgb 14.2 (12.0-16.0) g/dL Hct 42.6 (36.0-48.0) % MCV 86.4 (81.0-99.0) fL MCH 28.8 (26.7-34.0) pg MCHC 33.3 (29.9-35.2) g/dL RDW 14.0 (11.0-15.0) % Plt Count 436 (150-450) 10^3/uL MPV 10.6 (9.5-13.5) fL Neut % (Auto) 77.4 H (43.0-75.0) % Lymph % (Auto) 12.2 L (20.5-60.0) % [place] % (Auto) 8.2 (1.7-12.0) % Eos % (Auto) 0.3 L (0.9-7.0) % Baso % (Auto) 0.2 (0.2-2.0) % Neut # (Auto) 9.7 H (1.4-6.5) 10^3/uL Lymph # (Auto) 1.5 (1.2-3.8) 10^3/uL [place] # (Auto) 1.0 H (0.3-0.8) 10^3/uL Eos # (Auto) 0.0 (0.0-0.7) 10^3/uL Baso # (Auto) 0.0 (0.0-0.1) 10^3/uL Abs Immat Gran (auto) 0.21 H (0.00-0.03) 10^3/uL Imm/Tot Granulo (auto) 1.7 H (0.0-0.5) % PT 10.6 (9.0-11.6) sec INR 1.00 APTT 29.2 (22.3-36.2) sec Sodium 130 L (136-145) mmol/L Potassium 4.3 (3.5-5.1) mmol/L Chloride 97 L (98-107) mmol/L Carbon Dioxide 23.2 (21.0-32.0) mmol/L Anion Gap 14.1 BUN 61.0 H (7.0-18.0) mg/dL Creatinine 1.22 H (0.55-1.02) mg/dL Est GFR ( Amer) 53 L (>=60) Est GFR (Non-Af Amer) 44 L (>=60) BUN/Creatinine Ratio 50.0 Glucose 215 H (74-106) mg/dL Lactate 1.5 (0.4-2.0) mmol/L Calcium 8.9 (8.5-10.1) mg/dL Total Bilirubin 0.6 (0.2-1.0) mg/dL AST 23 (15-37) U/L ALT 18 (14-59) U/L Alkaline Phosphatase 128 H (46-116) U/L Total Creatine Kinase 134 (26-192) U/L CK-MB (CK-2) 4.04 H* (<=3.60) ng/mL Myoglobin 469 H* (9-82) ng/mL Troponin I High Sens 55.3 H* 56.8 H* (4.0-51.3) pg/mL Total Protein 6.8 (6.4-8.2) g/dL Albumin 2.5 L (3.4-5.0) g/dL Globulin 4.3 g/dL Albumin/Globulin Ratio 0.6 Urine Color Lt. yellow (YELLOW) Urine Clarity Clear (CLEAR) Urine pH 5.0 (5.0-9.0) Ur Specific [place] >=1.030 A (1.005-1.025) Urine Protein 30 A (NEG/TRACE) mg/dL Urine Glucose (UA) Negative (NEGATIVE) mg/dL Urine Ketones Trace A (NEGATIVE) mg/dL Urine Occult Blood Small A (NEGATIVE) Urine Nitrite Negative (NEGATIVE) Urine Bilirubin Small A (NEGATIVE) Urine Urobilinogen 0.2 (0.2-1.0) EU/dL Ur Leukocyte Esterase Moderate A (NEGATIVE) Urine RBC 0-2 (0-2) #/HPF Urine WBC 5-10 A (NONE SEEN) #/HPF Ur Squamous Epith Cells Moderate A (NONE/RARE) #/LPF Urine Crystals None seen (None Seen) #/HPF Urine Bacteria Large A (NONE SEEN) #/HPF Urine Casts None seen (NONE SEEN) #/LPF Urine Mucus None seen (NONE SEEN) Ur Culture Indicated? Yes Acetone, Qual Small A (NEGATIVE) Discharge Plan Discharge Chief Complaint: Fall Clinical Impression: Adult failure to thrive, Unable to care for self, Fracture of toe, Weakness, Acute UTI Patient Disposition: Admitted As Inpatient Time of Disposition Decision: 22:58 Condition: Fair Documented by User: Aravind De La Garza MD 07/28/23 23:05 HPI - General Adult General Chief complaint: Fall Stated complaint: FALL Time Seen by Provider: 07/28/23 20:00 Related Data Home Medications Medication Instructions Recorded Confirmed clopidogrel 75 mg tablet 75 mg PO DAILY 04/06/23 04/25/23 gabapentin 300 mg capsule 300 mg PO Q8H 04/06/23 04/25/23 insulin glargine 100 unit/mL (3 60 unit subcut BID 04/06/23 04/25/23 mL) subcutaneous pen (Lantus Solostar U-100 Insulin) lisinopril 2.5 mg tablet 2.5 mg PO DAILY 04/06/23 04/25/23 metoprolol tartrate 25 mg tablet 12.5 mg PO Q12H 04/06/23 04/25/23 omeprazole 40 mg capsule,delayed 40 mg PO DAILY 04/06/23 04/25/23 release sitagliptin phosphate 100 mg 100 mg PO DAILY 04/06/23 04/25/23 tablet (Januvia) aspirin 325 mg tablet,delayed 325 mg PO DAILY 04/07/23 04/25/23 release (Aspir-Leela) metformin 1,000 mg 24 hr 1,000 mg PO BID 04/07/23 04/12/23 tablet,extended release (Glumetza) atorvastatin 80 mg tablet 80 mg PO DAILY 04/08/23 04/25/23 Allergies Allergy/AdvReac Type Severity Reaction Status Date / Time adhesive tape AdvReac Mild Verified 04/06/23 17:01 hydrocodone [From Vicodin] AdvReac Mild Nausea Verified 04/06/23 17:01 [facility] Medical History Surgical History (Updated 07/22/23 @ 14:43 by Shaikh Annalise MD) Hx of CABG ?Z95.1 - Presence of aortocoronary bypass graft (ICD-10) Social History Within the past year, how often did you have a drink containing alcohol: never Score interpretation: A score less than 3 is consistent with normal alcohol consumption. Smoking status: Current every day smoker Are you now , , , , never or living with a partner: Gender Identity: female Exam Constitutional Vital Signs, click to edit/add: Last Vital Signs Temp 98.3 F 07/28/23 19:57 Pulse 95 H 07/28/23 21:30 Resp 20 07/28/23 21:30 BP 119/86 07/28/23 21:08 Pulse Ox 99 07/28/23 21:30 O2 Del Method Room Air 07/28/23 21:30 Course Vital Signs Vital signs: Vital Signs Pulse Oximetry 99 07/28/23 19:55 Temperature 98.3 F 07/28/23 19:57 Pulse Rate 95 H 07/28/23 21:30 Respiratory Rate 20 07/28/23 21:30 Blood Pressure 119/86 07/28/23 21:08 Pulse Oximetry 99 07/28/23 21:30 Oxygen Delivery Method Room Air 07/28/23 21:30 Medical Decision Making MDM Narrative Medical decision making narrative: poor living conditions, patient Carlos on floor for unknown time, right lateral hip pain status post fall. CT of the head and neck performed given her history of Plavix use. Is unsure if patient has been compliant with her medications given her home state per EMS. House has been condemned. Patient required significant nurse care for cleaning with feces and cigarettes found in her skin folds. presented to the Emergency Room and advised that the patient was found on the ground at 8 AM. She refused for him to call EMS and subsequently laid on the ground for the next 12 hours until EMS was called. Labwork reviewed and noted. Her troponin is mildly elevated, repeat remained stable. These are actually the lowest to troponin she has had recorded here at [facility]. She does have a urinary tract infection, placed on rocephin. CK is not consistent with rhabdo. Ct imaging negative. Xray of foot with proximal L 5th phalanx fracture, marina tape. Pelvis xray with chronic great trochanter fx. Case discussed with hospitalist who agrees to admit the patient. Medical Records Medical records reviewed: Yes I reviewed the patient's medical records Lab Data Lab results reviewed: Yes I reviewed the patient's lab results Labs: Lab Results 07/28/23 07/28/23 07/28/23 Range/Units 20:32 21:20 22:17 WBC 12.5 H (4.0-11.0) 10^3/uL RBC 4.93 (4.20-5.40) 10^6/uL Hgb 14.2 (12.0-16.0) g/dL Hct 42.6 (36.0-48.0) % MCV 86.4 (81.0-99.0) fL MCH 28.8 (26.7-34.0) pg MCHC 33.3 (29.9-35.2) g/dL RDW 14.0 (11.0-15.0) % Plt Count 436 (150-450) 10^3/uL MPV 10.6 (9.5-13.5) fL Neut % (Auto) 77.4 H (43.0-75.0) % Lymph % (Auto) 12.2 L (20.5-60.0) % [place] % (Auto) 8.2 (1.7-12.0) % Eos % (Auto) 0.3 L (0.9-7.0) % Baso % (Auto) 0.2 (0.2-2.0) % Neut # (Auto) 9.7 H (1.4-6.5) 10^3/uL Lymph # (Auto) 1.5 (1.2-3.8) 10^3/uL [place] # (Auto) 1.0 H (0.3-0.8) 10^3/uL Eos # (Auto) 0.0 (0.0-0.7) 10^3/uL Baso # (Auto) 0.0 (0.0-0.1) 10^3/uL Abs Immat Gran (auto) 0.21 H (0.00-0.03) 10^3/uL Imm/Tot Granulo (auto) 1.7 H (0.0-0.5) % PT 10.6 (9.0-11.6) sec INR 1.00 APTT 29.2 (22.3-36.2) sec Sodium 130 L (136-145) mmol/L Potassium 4.3 (3.5-5.1) mmol/L Chloride 97 L (98-107) mmol/L Carbon Dioxide 23.2 (21.0-32.0) mmol/L Anion Gap 14.1 BUN 61.0 H (7.0-18.0) mg/dL Creatinine 1.22 H (0.55-1.02) mg/dL Est GFR ( Amer) 53 L (>=60) Est GFR (Non-Af Amer) 44 L (>=60) BUN/Creatinine Ratio 50.0 Glucose 215 H (74-106) mg/dL Lactate 1.5 (0.4-2.0) mmol/L Calcium 8.9 (8.5-10.1) mg/dL Total Bilirubin 0.6 (0.2-1.0) mg/dL AST 23 (15-37) U/L ALT 18 (14-59) U/L Alkaline Phosphatase 128 H (46-116) U/L Total Creatine Kinase 134 (26-192) U/L CK-MB (CK-2) 4.04 H* (<=3.60) ng/mL Myoglobin 469 H* (9-82) ng/mL Troponin I High Sens 55.3 H* 56.8 H* (4.0-51.3) pg/mL Total Protein 6.8 (6.4-8.2) g/dL Albumin 2.5 L (3.4-5.0) g/dL Globulin 4.3 g/dL Albumin/Globulin Ratio 0.6 Urine Color Lt. yellow (YELLOW) Urine Clarity Clear (CLEAR) Urine pH 5.0 (5.0-9.0) Ur Specific [place] >=1.030 A (1.005-1.025) Urine Protein 30 A (NEG/TRACE) mg/dL Urine Glucose (UA) Negative (NEGATIVE) mg/dL Urine Ketones Trace A (NEGATIVE) mg/dL Urine Occult Blood Small A (NEGATIVE) Urine Nitrite Negative (NEGATIVE) Urine Bilirubin Small A (NEGATIVE) Urine Urobilinogen 0.2 (0.2-1.0) EU/dL Ur Leukocyte Esterase Moderate A (NEGATIVE) Urine RBC 0-2 (0-2) #/HPF Urine WBC 5-10 A (NONE SEEN) #/HPF Ur Squamous Epith Cells Moderate A (NONE/RARE) #/LPF Urine Crystals None seen (None Seen) #/HPF Urine Bacteria Large A (NONE SEEN) #/HPF Urine Casts None seen (NONE SEEN) #/LPF Urine Mucus None seen (NONE SEEN) Ur Culture Indicated? Yes Acetone, Qual Small A (NEGATIVE) ECG Data Attestation: I personally reviewed and interpreted this ECG as follows: (Sinus tachycardia at a rate of one oh six. Normal QRS duration. Normal QTC. No STEMI.) Discharge Plan Discharge Chief Complaint: Fall Clinical Impression: Adult failure to thrive, Unable to care for self, Fracture of toe, Weakness, Acute UTI Patient Disposition: Admitted As Inpatient Time of Disposition Decision: 22:58 Condition: Fair
--- NOTE | 2023-07-28 20:09 | CT_ITS ---
The [address] [address] Patient Name: EMILY HARO MRN: [id number] date: 1955 Sex: F Assigned Patient Location: ER Current Patient Location: ER Accession/Order Number: [id number] Exam Date: 07/28/2023 20:28 Report Date: 07/28/2023 21:52 At the request of: ANCA RIOS Procedure: CT cervical spine wo con CT CERVICAL SPINE WITHOUT IV CONTRAST. INDICATION: Trauma. COMPARISON: There are no prior studies available for comparison. TECHNIQUE: CT of the cervical spine without contrast. Orthogonal sagittal and coronal multiplanar reformatted images were created. . FINDINGS: BONY ALIGNMENT: There is normal cervical lordosis. No spondylolisthesis. VERTEBRAL BODY: No acute fracture of the cervical spine. Mild to moderate C5-6 degenerative spondylosis. CENTRAL CANAL/NEURAL FORAMINA: There is moderate to severe C5-6 central canal stenosis secondary to disc osteophyte complex.. There is severe left and moderate right C5-6 neural foraminal stenosis. SOFT TISSUE: No mass or inflammation. Thyroid calcifications. Evaluation is limited due to motion. UPPER LUNGS: No acute findings. CT/CT cervical spine wo con IMPRESSION: No acute cervical spinal fracture. Electronically authenticated by: LEMUEL HERNÁNDEZ Date: 07/28/2023 21:52
[2023-07-28 20:41] LABS: Basophils Percent Auto 0.2 % (0.2-2.0); Eosinophils Percent Auto 0.3 % (0.9-7.0); Hematocrit 42.6 % (36.0-48.0); Hemoglobin 14.2 g/dL (12.0-16.0); Immature Granulocytes Abs Auto 0.21 10^3/uL (0.00-0.03); Immature Granulocytes Pct Auto 1.7 % (0.0-0.5); Lymphocytes Absolute Auto 1.5 10^3/uL (1.2-3.8); Lymphocytes Percent Auto 12.2 % (20.5-60.0); Mean Corpuscular HGB Conc 33.3 g/dL (29.9-35.2); Mean Corpuscular Hemoglobin 28.8 pg (26.7-34.0); Mean Corpuscular Volume 86.4 fL (81.0-99.0); Mean Platelet Volume 10.6 fL (9.5-13.5); Monocytes Percent Auto 8.2 % (1.7-12.0); Neutrophils Absolute Auto 9.7 10^3/uL (1.4-6.5); Neutrophils Percent Auto 77.4 % (43.0-75.0); Platelet Count 436 10^3/uL (150-450); Red Blood Count 4.93 10^6/uL (4.20-5.40); White Blood Count 12.5 10^3/uL (4.0-11.0)
--- NOTE | 2023-07-28 20:51 | XR_ITS ---
The [address] [address] Patient Name: EMILY HARO MRN: [id number] date: 1955 Sex: F Assigned Patient Location: ER Current Patient Location: ER Accession/Order Number: [id number] Exam Date: 07/28/2023 20:28 Report Date: 07/28/2023 21:53 At the request of: ANCA RIOS Procedure: XR foot CHRISTY min 3V EXAM: XR foot CHRISTY min 3V HISTORY: Fall COMPARISON: None. TECHNIQUE: 3 views of each foot FINDINGS: IMPRESSION: Comminuted displaced fracture of the left fifth proximal phalanx head appears to extend into the fifth PIP joint. Adjacent soft tissue edema. The remainder of the osseous structures are unremarkable. Atherosclerosis of the vascular structures Electronically authenticated by: MARYAM MCKNIGHT Date: 07/28/2023 21:53
[2023-07-28 20:52] LABS: Acetone SMALL (NEGATIVE)
[2023-07-28 20:54] LABS: Partial Thromboplastin Time 29.2 sec (22.3-36.2); Prothrombin Time 10.6 sec (9.0-11.6)
[2023-07-28 20:59] LABS: Lactate/Lactic Acid 1.5 mmol/L (0.4-2.0)
[2023-07-28 21:04] LABS: Creatine Kinase 134 U/L (26-192)
[2023-07-28 21:05] LABS: Alanine Aminotransferase 18 U/L (14-59); Albumin Globulin Ratio 0.6; Albumin Level 2.5 g/dL (3.4-5.0); Alkaline Phosphatase 128 U/L (46-116); Anion Gap 14.1; Aspartate Amino Transferase 23 U/L (15-37); Bilirubin Total 0.6 mg/dL (0.2-1.0); Calcium 8.9 mg/dL (8.5-10.1); Carbon Dioxide 23.2 mmol/L (21.0-32.0); Chloride 97 mmol/L (98-107); Estimated GFR (African America 53 (>=60); Estimated GFR (Non-African Ame 44 (>=60); Globulin 4.3 g/dL; Glucose 215 mg/dL (74-106); Potassium 4.3 mmol/L (3.5-5.1); Sodium 130 mmol/L (136-145); Total Protein 6.8 g/dL (6.4-8.2)
[2023-07-28 21:07] LABS: Creatine Kinase MB 4.04 ng/mL (<=3.60); Myoglobin 469 ng/mL (9-82); Troponin I High Sensitivity 55.3 pg/mL (4.0-51.3)
[2023-07-28] MEDS: 0.9 % SODIUM CHLORIDE 1,000 ML 999 ML IV (21:14)
[2023-07-28] MEDS: ACETAMINOPHEN 500 MG TABLET PO (21:15)
[2023-07-28 21:27] LABS: Bilirubin Urine SMALL (NEGATIVE); Blood Urine SMALL (NEGATIVE); Clarity Urine CLEAR (CLEAR); Color Urine LT. YELLOW (YELLOW); Glucose Urine UA NEGATIVE (NEGATIVE); Ketones Urine TRACE mg/dL (NEGATIVE); Leukocyte Esterase Urine MODERATE (NEGATIVE); Nitrite Urine NEGATIVE (NEGATIVE); Protein Urine 30 mg/dL (NEG/TRACE); Specific Gravity Urine >=1.030 (1.005-1.025); Urine Microscopic Indicated YES; Urobilinogen Urine 0.2 EU/dL (0.2-1.0)
[2023-07-28 21:33] LABS: Bacteria Urine LARGE #/HPF (NONE SEEN); Mucus Urine NONE SEEN (NONE SEEN); RBC Urine 0-2 #/HPF (0-2); Squamous Epithelial Cell Urine MODERATE #/LPF (NONE/RARE)
[2023-07-28 21:34] LABS: Cast Seen? NONE SEEN #/LPF (NONE SEEN); Crystals Seen? None Seen #/HPF (None Seen); Urine Culture Indicated YES
[2023-07-28] MEDS: CEFTRIAXONE 1,000 MG in 0.9 % SODIUM CHLORIDE 50 ML 100 MG IV (21:56)
[2023-07-28 22:48] LABS: Troponin I High Sensitivity 56.8 pg/mL (4.0-51.3)
--- NOTE | 2023-07-28 23:53 | PC.NURSE ---
dentures at home
[2023-07-29 00:11] LABS: Glucometer 235 mg/dL (74-106)
--- NOTE | 2023-07-29 01:36 | PC.NURSE ---
Pt's skin integrity is compromised and patient is incontinent of both bowel and bladder. Urine noted in catheter thick brown milky consistency with a strong foul ordor.
--- NOTE | 2023-07-29 01:38 | W.PM.TELEPN ---
Progress Note: Subjective Subjective Interval history: The patient is a 68-year-old female with a history of diabetes, hypertension, dementia and failure to thrive, who apparently fell at home around 8 AM. She slipped off a chair. Her tried to bring her to the hospital however the patient continued to refuse. She was apparently crawling around the floor for the last several hours. She finally agreed to come to the hospital and she was covered in stool and urine. Nurses were pulling out cigarettes from her skin folds. She has also been incontinent of stool and urine. She was noted to have chronically elevated troponins. CK was negative. She was also found to have a left fifth digit toe fracture for which has been taped up. She was noted to have a UTI and started on Rocephin. She is being admitted for further evaluation. Exam Constitutional Vital Signs, click to edit/add: Last Vital Signs Temp 98.4 F 07/28/23 23:49 Pulse 105 H 07/28/23 23:49 Resp 20 07/28/23 23:49 BP 150/82 H 07/28/23 23:49 Pulse Ox 97 07/28/23 23:49 O2 Del Method Room Air 07/28/23 23:57 Progress Note: Objective Labs Labs: Short CBC 07/28/23 Range/Units 20:32 WBC 12.5 H (4.0-11.0) 10^3/uL Hgb 14.2 (12.0-16.0) g/dL Hct 42.6 (36.0-48.0) % Plt Count 436 (150-450) 10^3/uL BMP 07/28/23 20:32 Sodium 130 L Potassium 4.3 Chloride 97 L Carbon Dioxide 23.2 BUN 61.0 H Creatinine 1.22 H Glucose 215 H Calcium 8.9 Cardiac Enzymes 07/28/23 Range/Units 20:32 Total Creatine Kinase 134 (26-192) U/L CK-MB (CK-2) 4.04 H* (<=3.60) ng/mL Liver Function 07/28/23 Range/Units 20:32 Total Bilirubin 0.6 (0.2-1.0) mg/dL AST 23 (15-37) U/L ALT 18 (14-59) U/L Alkaline Phosphatase 128 H (46-116) U/L Albumin 2.5 L (3.4-5.0) g/dL Urine 07/28/23 Range/Units 21:20 Urine Color Lt. yellow (YELLOW) Urine Clarity Clear (CLEAR) Urine pH 5.0 (5.0-9.0) Ur Specific [place] >=1.030 A (1.005-1.025) Urine Protein 30 A (NEG/TRACE) mg/dL Urine Glucose (UA) Negative (NEGATIVE) mg/dL Progress Note: A&P Assessment and Plan (1) Weakness: (2) Acute UTI: (3) Fracture of toe: Plan The patient is a 68-year-old female with above medical problems, presenting with generalized weakness, fall, found to have left fifth digit toe fracture and a UTI. UTI, present on admission -Provide supportive care -Gentle IV fluids -Empiric Rocephin Acute kidney injury -Likely secondary to prerenal azotemia and mild ATN -Continue IV hydration and monitor renal function Chronically elevated troponins -Patient denies any chest pain -Resume home medications which include cardiac medications once meds have been verified Left fifth digit toe fracture -Per ER doctor, it has been taped up -PT evaluation and supportive care Chronic wounds -Wound care consult Urinary incontinence -Hays catheter to help promote better wound healing Nicotine dependence -Nicotine patch Accelerated hypertension -Hydralazine IV as needed DVT Prophylaxis -Plavix, aspirin resume once verified Medication review -Medication reconciliation form not yet completed, waiting on medications to be verified Goals of care -Full code Communications -Discussed with the emergency room physician -Discussed with the bedside nurse -Patient updated of plan of care, all questions answered to their satisfaction Disposition -Home when medically stable Telemedicine clause -As the provider of this telehealth evaluation, requested by the patient's evaluating physician, I attest that I introduced myself to the patient, provided my credentials and determined that telemedicine via a real-time, two-way interactive audio and video platform is an appropriate and effective means of providing this service. -I reviewed the patient's chart and had a discussion with the member of the patient's treatment team. -The patient and I mutually agreed with continuation of this evaluation via telemedicine. The patient consented for the telemedicine evaluation. -This virtual encounter was taken place from [place], [place]. The encounter was approximately 35 minutes. The nurse was present during the entire time of the encounter and was able to remove the stethoscope and appropriate directions. The patient was evaluated at [facility] Telemedicine Attestation Telemedicine Attestation I conducted this encounter from [] via secure live, [id number] video conference with the patient, located at [facility] with []. Prior to the interview, the risks and benefits of telemedicine were discussed with the patient and verbal consent was obtained.
[2023-07-29] MEDS: 0.9 % SODIUM CHLORIDE 1,000 ML 75 ML IV (02:31)
[2023-07-29 03:26] VITALS: BP 142/78; PULSE 100; RESP 18; TEMP 36.6; O2SAT 93
[2023-07-29 05:05] LABS: Basophils Percent Auto 0.3 % (0.2-2.0); Eosinophils Absolute Auto 0.1 10^3/uL (0.0-0.7); Eosinophils Percent Auto 0.8 % (0.9-7.0); Hematocrit 38.6 % (36.0-48.0); Hemoglobin 12.6 g/dL (12.0-16.0); Immature Granulocytes Abs Auto 0.09 10^3/uL (0.00-0.03); Immature Granulocytes Pct Auto 0.9 % (0.0-0.5); Lymphocytes Absolute Auto 1.9 10^3/uL (1.2-3.8); Lymphocytes Percent Auto 18.6 % (20.5-60.0); Mean Corpuscular HGB Conc 32.6 g/dL (29.9-35.2); Mean Corpuscular Hemoglobin 28.5 pg (26.7-34.0); Mean Corpuscular Volume 87.3 fL (81.0-99.0); Monocytes Absolute Auto 1.1 10^3/uL (0.3-0.8); Monocytes Percent Auto 10.7 % (1.7-12.0); Neutrophils Absolute Auto 6.9 10^3/uL (1.4-6.5); Neutrophils Percent Auto 68.7 % (43.0-75.0); Platelet Count 362 10^3/uL (150-450); Red Blood Count 4.42 10^6/uL (4.20-5.40); Red Cell Distribution Width 14.1 % (11.0-15.0); White Blood Count 10.1 10^3/uL (4.0-11.0)
[2023-07-29 05:13] LABS: Anion Gap 11.4; BUN Creatinine Ratio 52.5; Calcium 8.5 mg/dL (8.5-10.1); Carbon Dioxide 23.1 mmol/L (21.0-32.0); Chloride 99 mmol/L (98-107); Estimated GFR (African America 54 (>=60); Estimated GFR (Non-African Ame 45 (>=60); Glucose 351 mg/dL (74-106); Potassium 4.5 mmol/L (3.5-5.1); Sodium 129 mmol/L (136-145)
--- NOTE | 2023-07-29 06:27 | PC.NURSE ---
Increased NS to 125ml/hr per physician order.
[2023-07-29 07:46] LABS: Troponin I High Sensitivity 59.9 pg/mL (4.0-51.3)
[2023-07-29 08:12] LABS: Glucometer 301 mg/dL (74-106)
[2023-07-29 08:15] VITALS: BP 142/66; PULSE 82; RESP 18; TEMP 36.6; O2SAT 94
[2023-07-29] MEDS: INSULIN ASPART 300 UNIT/3 ML PEN SUBQ ×4 (08:31→20:39)
[2023-07-29 08:41] LABS: Estimated Average Glucose 240 mg/dL
--- NOTE | 2023-07-29 10:00 | CM.NOTE ---
Spoke with RN, pt remains having underlying confusion. RN states they are unable to locate pt's , home has been condemned. PT and OT will evaluate pt today, will follow for discharge needs and also will attempt to contact .
[2023-07-29] MEDS: NYSTATIN 15 GM POWDER 1 APPLIC TOPICAL ×3 (11:46→21:07)
[2023-07-29] MEDS: NICOTINE 14 MG PATCH TD (11:49)
--- NOTE | 2023-07-29 11:49 | CM.NOTE ---
Rounds made with Dr. Woody. Dr. Woody discussed discharge plan and living conditions with Kiara. PT/OT ordered to determine needs for discharge.
[2023-07-29 12:05] LABS: Glucometer 225 mg/dL (74-106)
[2023-07-29] MEDS: 0.9 % SODIUM CHLORIDE 1,000 ML 125 ML IV ×2 (12:26→20:18)
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
--- NOTE | 2023-07-29 13:22 | W.PM.WC ---
Wound Consult Note Assessment and Plan (1) Weakness: (2) Acute UTI: (3) Fracture of toe: Plan Patient seen for assessment of excoriated skin and left great toe ulcer. Patient sitting up in chair. She is looking to order her lunch. She states she broke her toe, that's why it looks like that . Her left great toe has a large, dry, intact eschar on her left dorsal great toe. Area measures [id number]. No drainage noted. No ecchymosis noted. After reviewing her chart, fracture is to the left 5th toe, which is marina taped to the left 4th toe. No signs of circulation impairment noted. Provided updated information to Dr. Burton, podiatry fellow, if any other treatment is necessary. Patient also with scattered dry abrasions to bilateral lower legs. She does have an open area on her left anterior wright that measures 0.8cmx0.4cmx0.1cm. Small amount of drainage noted. No signs of infection noted. Patient denies any other skin concerns at this time. States I am trying to figure out my lunch . Plan: Xeroform gauze to any open abrasion/ulcer to BLE daily. Betadine to eschar borders of left great toe ulcer. Cover with gauze. No photos take at this time due to techinical issues. Bedside nurse notified of need to take photo for chart. Please contact [phone] for any questions or concerns.
--- NOTE | 2023-07-29 13:40 | CM.NOTE ---
Discussed with pt about PT and OT recommendations for skilled rehab at discharge. Discussed with pt safety issues and the need to be able to care for herself. Talked with pt about the status of her home, pt states I will get it cleaned up. I need to go home. Talked with pt about HH, pt refuses anyone to come into the home. Pt states they keep her too long in a skilled facility. Explained to pt they only keep her until she meets her goals, dependent on her strength and ability to care for herself in the home. Pt continues to refuse and skilled therapy or HH services. Pt requesting to go outside to sit in car with her when he comes to visit, explained to pt she is unable to leave the Med-Surg floor for safety reasons. Pt verbalizes understanding.
[2023-07-29 14:00] VITALS: BP 122/76; PULSE 79; RESP 18; TEMP 36.3; O2SAT 96
--- NOTE | 2023-07-29 14:11 | CM.NOTE ---
RYAN Perez updated on pt's home situations and her refusal for senior living or HH at discharge.
--- NOTE | 2023-07-29 14:30 | P.HP_ITS ---
Seen and examined. Reviewed patient's chart. Case d/w Ana. Agree with her assessment and plan metabolic encephalopathy failure to thrive UTI DOLORES Dehydration hyponatremia generalized weakness Exam: laying in bed, comfortable. NT. ND, normal BS AAOX 3, non focal. C/w IV fluids, IV abx. PT/OT eval. Will need monitoring of her renal function, electrolytes. F/u cx. Will likely need SNF placement. H&P: HPI History of Present Illness Chief complaint: FALL Narrative: Date/time of exam: 07/29/23 1140 This is a 68-year-old female patient with a past medical history as outlined below including CAD, HTN, DM2, among others; who reported to the ED last night via EMS after being found on the floor next to the bed at home. EMS reports almost daily trips to this house due to patient's frequent falls. The pt was reportedly covered in feces and urine on arrival to the ED. Apparently the [facility] office has been reporting that the house needs to be condemned as it currently has no running water but the [facility] is working with the patient and her spouse to get water resumed. The pt c/o mild R hip pain after her fall. Work-up in the ED revealed a UTI, DOLORES, uncontrolled hyperglycemia, and a left fifth toe fracture, as well as general dishevelment and very poor hygiene. Nursing found cigarettes in her skin folds while cleaning her up. She reported prolonged down time - up to 12 hrs. CPK in the ED was WNL, indicating Rhabdo is not likely. Her cardiac enzymes were elevated but this is chronic for her and they were in fact lower than usual. She was admitted as an inpatient to the hospitalist service for these diagnoses as well as adult failure to thrive. At the time of my exam the patient is sitting in a bedside chair. She just finished taking a shower with the assistance of nursing students. She denies confusion or altered mentation. She remembers slipping out of bed onto the floor and being unable to get up by herself. She is given various reasons to staff why she is laying in feces and urine. Apparently she requires her 's assistance with ambulating and when he is not there she will just defecate wherever she is sitting. This is likely contributing to her UTIs. The patient has been strongly encouraged to consider SNF placement at discharge for rehab strengthening but she is refusing to date, as has been her habit in the past on previous admissions. Review of Systems ROS Status of ROS 10 or more systems reviewed and unremarkable except as noted in history and below [facility] Medical History (Updated 07/29/23 @ 14:45 by Ana Weldon NP) Adult failure to thrive ?R62.7 - Adult failure to thrive (ICD-10) CAD (coronary artery disease) ?I25.10 - Atherosclerotic heart disease of [place] coronary artery without angina pectoris (ICD-10) Dehydration ?E86.0 - Dehydration (ICD-10) Dementia ?F03.90 - Unspecified dementia, unspecified severity, without behavioral disturbance, psychotic disturbance, mood disturbance, and anxiety (ICD-10) Elevated troponin ?R77.8 - Other specified abnormalities of plasma proteins (ICD-10) HLD (hyperlipidemia) ?E78.5 - Hyperlipidemia, unspecified (ICD-10) Hypertension ?I10 - Essential (primary) hypertension (ICD-10) Hypokalemia ?E87.6 - Hypokalemia (ICD-10) Type 2 diabetes mellitus with insulin therapy ?E11.9 - Type 2 diabetes mellitus without complications (ICD-10) ?Z79.4 - manager long term care (current) use of insulin (ICD-10) Surgical History (Updated 07/28/23 @ 23:58 by Carlin Saenz) History of bilateral knee arthroplasty ?Z96.653 - Presence of artificial knee joint, bilateral (ICD-10) Hx of CABG ?Z95.1 - Presence of aortocoronary bypass graft (ICD-10) Family History (Updated 07/29/23 @ 00:00 by Carlin Saenz) Father Family history of CHF (congestive heart failure) Family history of cancer Family history of diabetes mellitus Family history of hypertension Mother Family history of CHF (congestive heart failure) Family history of cancer Family history of diabetes mellitus Family history of hypertension Family history of myocardial infarction Family history of stroke Social History (Updated 07/29/23 @ 00:04 by Carlin Saenz) Within the past year, how often did you have a drink containing alcohol: never Score interpretation: A score less than 3 is consistent with normal alcohol consumption. 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 Known occupational exposures/hazards: No Highest level of school completed/degree received: Associate degree: academic program Do you want help with school or training: No Are you now , , , , never or living with a partner: In a typical week, how many times do you talk on the telephone with family, friends, or neighbors: 3 or more times per week How often do you get together with friends or relatives: twice per week How often do you attend jew or nondenominational services: 4 or more times per year Do you belong to any clubs or organizations such as jew groups unions, [facility] or [email or web address], or school groups: yes Total score: 4 Score interpretation: A score of greater than or equal to 2 indicates the lowest level of social isolation. Little interest or pleasure in doing things: not at all Feeling down, depressed, or hopeless: not at all Feel stressed/tense/nervous/anxious/difficulty sleeping: not at all Due to disability, difficulty making decisions: No Do you think of yourself as: straight/heterosexual Gender Identity: female Meds Home Medications and Allergies Home Medications Medication Instructions Recorded Confirmed Type clopidogrel 75 mg tablet 75 mg PO DAILY 04/06/23 07/29/23 History gabapentin 300 mg capsule 300 mg PO Q8H 04/06/23 07/29/23 History insulin glargine 100 unit/mL (3 60 unit subcut BID 04/06/23 07/29/23 History mL) subcutaneous pen (Lantus Solostar U-100 Insulin) lisinopril 2.5 mg tablet 2.5 mg PO DAILY 04/06/23 07/29/23 History metoprolol tartrate 25 mg tablet 12.5 mg PO Q12H 04/06/23 07/29/23 History omeprazole 40 mg capsule,delayed 40 mg PO DAILY 04/06/23 07/29/23 History release sitagliptin phosphate 100 mg 100 mg PO DAILY 04/06/23 07/29/23 History tablet (Januvia) aspirin 325 mg tablet,delayed 325 mg PO DAILY 04/07/23 07/29/23 History release (Aspir-Leela) metformin 1,000 mg 24 hr 1,000 mg PO BID 04/07/23 07/29/23 History tablet,extended release (Glumetza) atorvastatin 80 mg tablet 40 mg PO DAILY 04/08/23 07/29/23 History amlodipine 10 mg tablet 10 mg PO DAILY 07/29/23 07/29/23 History dapagliflozin propanediol 10 mg 10 mg PO DAILY 07/29/23 07/29/23 History tablet (Farxiga) Allergies Allergy/AdvReac Type Severity Reaction Status Date / Time adhesive tape AdvReac Mild Verified 04/06/23 17:01 hydrocodone [From Vicodin] AdvReac Mild Nausea Verified 04/06/23 17:01 Exam Constitutional Vital Signs, click to edit/add: Last Vital Signs Temp 97.4 F L 07/29/23 14:00 Pulse 79 07/29/23 14:00 Resp 18 07/29/23 14:00 BP 122/76 07/29/23 14:00 Pulse Ox 96 07/29/23 14:00 O2 Del Method Room Air 07/29/23 14:00 Common normals: no apparent distress, oriented x3, alert and well nourished General appearance: cooperative Orientation/consciousness: Yes awake HENMT Common normals: normocephalic, head/scalp atraumatic, hearing grossly normal bilaterally, external ears normal, external nose normal and moist oral mucous membranes Eye Common normals: PERRL, EOMs intact bilaterally, conjunctivae normal and no scleral icterus General eye: normal appearance of both eyes Alignment: alignment normal Eyelid: eyelids normal Neck & C-Spine Common normals: full ROM, supple and no JVD Chest Common normals: inspection of chest normal Chest: symmetrical chest wall rise Respiratory Common normals: normal respiratory effort, no retractions, no use of accessory muscles and clear to auscultation bilaterally Effort & inspection: able to speak in complete sentences Cardio Common normals: no JVD, regular rate, regular rhythm, S1 normal heart sound, S2 normal heart sound, no gallops, no clicks, no murmurs, no rub and peripheral pulses 2+ throughout GI Common normals: Normal to inspection, nondistended, normoactive bowel sounds present, soft to palpation, non-tender, no hepatosplenomegaly, no masses and no bruits Bladder/kidney exam: bladder normal to palpation Back & Pelvis Common normals: thoracic and lumbar spine normal to inspection Extremity Common normals: normal capillary refill and no pedal edema General: normal exam except as noted; no clubbing and no cyanosis Other: Scattered contusions/abrasions to BUE, BLE Neuro Miesha Coma Scale: GCS not evaluated Common normals: oriented x3, CN's II-XII intact bilaterally, moves all extremities, no focal motor deficits and no sensory deficits noted Motor exam: strength 5/5 throughout Psych Common normals: mental status grossly normal, thought process normal, affect normal and activity/motor behavior normal Results Labs Labs: Short CBC 07/28/23 07/29/23 Range/Units 20:32 04:34 WBC 12.5 H 10.1 (4.0-11.0) 10^3/uL Hgb 14.2 12.6 (12.0-16.0) g/dL Hct 42.6 38.6 (36.0-48.0) % Plt Count 436 362 (150-450) 10^3/uL BMP 07/28/23 07/29/23 20:32 04:34 Sodium 130 L 129 L Potassium 4.3 4.5 Chloride 97 L 99 Carbon Dioxide 23.2 23.1 BUN 61.0 H 63.0 H Creatinine 1.22 H 1.20 H Glucose 215 H 351 H Calcium 8.9 8.5 Cardiac Enzymes 07/28/23 Range/Units 20:32 Total Creatine Kinase 134 (26-192) U/L CK-MB (CK-2) 4.04 H* (<=3.60) ng/mL Liver Function 07/28/23 Range/Units 20:32 Total Bilirubin 0.6 (0.2-1.0) mg/dL AST 23 (15-37) U/L ALT 18 (14-59) U/L Alkaline Phosphatase 128 H (46-116) U/L Albumin 2.5 L (3.4-5.0) g/dL Urine 07/28/23 Range/Units 21:20 Urine Color Lt. yellow (YELLOW) Urine Clarity Clear (CLEAR) Urine pH 5.0 (5.0-9.0) Ur Specific [place] >=1.030 A (1.005-1.025) Urine Protein 30 A (NEG/TRACE) mg/dL Urine Glucose (UA) Negative (NEGATIVE) mg/dL Pulse Oximetry Attestation: I have reviewed the pertinent pulse oximetry results. Assessment and Plan Assessment and Plan (1) Acute UTI: Assessment and Plan: ACUTE * Adm inpatient * Rocephin IVPB pending urine cx results * No clinical concern for sepsis at this time * Mild leukocytosis resolved today, afebrile, BP stable * CBC, CMP daily (2) DOLORES (acute kidney injury): Assessment and Plan: ACUTE * Suspect d/t dehydration w/ pre-renal azotemia and/or acute UTI * ABX as above * 1 liter IVF bolus given in ED * NS IVF at 125/hr for rehydration * Hold all renal toxic meds including metformin, farxiga, and Januvia * CMP daily (3) Fracture of toe: Assessment and Plan: ACUTE * Taped in the ED * supportive care * consider ortho consult pending clinical course (4) Adult failure to thrive: Assessment and Plan: ACUTE ON CHRONIC * Worsening home situation w/ no running water * Pt unable to get herself to the toilet and frequently sits in feces and urine * [facility], [facility] offices and APS are aware of this pt's situation * Pt encouraged to do a short SNF stay after discharge but she is refusing so far (5) Frequent falls: Assessment and Plan: ACUTE ON CHRONIC * Multiple EMS calls every week/day for falls assist * Pt refusing home health or SNF admission * Hold home plavix for now (6) Hypertension: Assessment and Plan: CHRONIC * Continue home lisinopril, BB * Hold if sepsis is suspected (7) Elevated troponin: Assessment and Plan: CHRONIC * Stable at baseline (8) CAD (coronary artery disease): Assessment and Plan: CHRONIC * Hold home statin during acute illness/admission. Resume at d/c * Hold home plavix for now d/t frequent falls, risk for ICH (9) Type 2 diabetes mellitus with insulin therapy: Assessment and Plan: CHRONIC * With uncontrolled hyperglycemia * Unclear if pt is following her home med regimen * Continue basal lantus and add insulin SS for correction. Low threshold to increase SS insulin * Med CC diet * ACHS glucometer checks * Metformin, farxiga and Januvia currently on hold * Monitor for possible euglycemic ketoacidosis
[2023-07-29 15:34] VITALS: O2SAT 98
[2023-07-29 16:47] LABS: Glucometer 384 mg/dL (74-106)
--- NOTE | 2023-07-29 17:04 | PC.NURSE ---
offered patient dinner @ this time. patient denies being hungry and doesnt want to order at this time
[2023-07-29 19:13] VITALS: BP 141/72; PULSE 92; RESP 18; TEMP 37; O2SAT 96
[2023-07-29] MEDS: CEFTRIAXONE 1,000 MG in 0.9 % SODIUM CHLORIDE 50 ML 100 MG IV (20:18)
[2023-07-29 20:38] LABS: Glucometer 284 mg/dL (74-106)
[2023-07-29] MEDS: INSULIN DETEMIR 300 UNIT/3 ML INSULN.PEN 15 UNIT SUBQ (20:40)
[2023-07-30 03:54] VITALS: BP 136/74; PULSE 90; RESP 22; TEMP 36.6; O2SAT 93
[2023-07-30] MEDS: OMEPRAZOLE 40 MG CAPSULE.DR PO (04:17)
[2023-07-30] MEDS: NYSTATIN 15 GM POWDER 1 APPLIC TOPICAL ×2 (04:18→14:11)
[2023-07-30] MEDS: 0.9 % SODIUM CHLORIDE 1,000 ML 125 ML IV (04:20)
[2023-07-30 05:45] LABS: Basophils Percent Auto 0.4 % (0.2-2.0); Eosinophils Absolute Auto 0.2 10^3/uL (0.0-0.7); Eosinophils Percent Auto 2.4 % (0.9-7.0); Hematocrit 34.8 % (36.0-48.0); Hemoglobin 11.2 g/dL (12.0-16.0); Immature Granulocytes Abs Auto 0.08 10^3/uL (0.00-0.03); Lymphocytes Absolute Auto 1.9 10^3/uL (1.2-3.8); Lymphocytes Percent Auto 22.6 % (20.5-60.0); Mean Corpuscular HGB Conc 32.2 g/dL (29.9-35.2); Mean Corpuscular Hemoglobin 28.3 pg (26.7-34.0); Mean Corpuscular Volume 87.9 fL (81.0-99.0); Mean Platelet Volume 11.7 fL (9.5-13.5); Monocytes Percent Auto 11.8 % (1.7-12.0); Neutrophils Absolute Auto 5.2 10^3/uL (1.4-6.5); Neutrophils Percent Auto 61.8 % (43.0-75.0); Platelet Count 294 10^3/uL (150-450); Red Blood Count 3.96 10^6/uL (4.20-5.40); Red Cell Distribution Width 14.2 % (11.0-15.0); White Blood Count 8.4 10^3/uL (4.0-11.0)
[2023-07-30 05:54] LABS: Estimated Average Glucose 246 mg/dL; Glycohemoglobin A1C 10.2 % (4.5-6.2)
[2023-07-30 05:59] LABS: Anion Gap 12.1; BUN Creatinine Ratio 47.7; Calcium 8.4 mg/dL (8.5-10.1); Carbon Dioxide 21.1 mmol/L (21.0-32.0); Chloride 105 mmol/L (98-107); Estimated GFR (African America >60 (>=60); Estimated GFR (Non-African Ame >60 (>=60); Glucose 297 mg/dL (74-106); Potassium 4.2 mmol/L (3.5-5.1); Sodium 134 mmol/L (136-145)
[2023-07-30] MEDS: METOPROLOL SUCCINATE 50 MG TAB.ER.24H PO (09:37)
[2023-07-30] MEDS: AMLODIPINE BESYLATE 5 MG TABLET 10 MG PO (09:37)
[2023-07-30] MEDS: NICOTINE 14 MG PATCH TD (09:38)
[2023-07-30] MEDS: INSULIN DETEMIR 300 UNIT/3 ML INSULN.PEN 15 UNIT SUBQ ×2 (09:38→23:23)
[2023-07-30] MEDS: INSULIN ASPART 300 UNIT/3 ML PEN SUBQ ×4 (09:38→23:24)
--- NOTE | 2023-07-30 09:49 | CM.NOTE ---
Pt now in agreement for Skilled therapy at discharge. Pt wishes are to go to [facility], called [facility] and spoke with admissions and faxed over clinical.
[2023-07-30 10:58] LABS: Glucometer 220 mg/dL (74-106)
--- NOTE | 2023-07-30 12:10 | PT.DAILY ---
Physical Therapy Daily Note PT Daily Note/Assess Start: 07/30/23 12:06 Freq: Status: Active Protocol: Document 07/30/23 12:06 NATALY (Rec: 07/30/23 12:10 NATALY [id number]) Physical Therapy Daily Note/Assessment Time In/Time Out Time In 11:25 Time Out 11:50 Pain In Pain N/A Pain Out Pain N/A Subjective Subjective Pt sitting in BS chair upon arrival. Agrees to PT. Planned dc to SNF. Therapeutic Exercise Time Therapeutic Exercise Minutes (minutes) 5 Therapeutic Exercise Units 0 Therapeutic Exercise Treatment Therapeutic Exercise Treatment Seated bilat LE strengthening ex complete while sitting in BS chair 10x ea. Therapeutic Activity Time Therapeutic Activity Minutes (minutes) 10 Therapeutic Activity Units 1 Therapeutic Activity Treatment Chair Transfer Ability Minimum Assist Therapeutic Activity Comments Pt sit>stand from BS chair to RW with Ty - feet do slide at first attempt so second attempt therapist places foot in front of patient's. Pt then amb 30' to restroom with RW CGA with assist with IV pole. Pt remains on toilet for bowel movement while therapist orders her lunch. Pt then sit> stand using grab bar - SBA. Static standing at RW while pericare is performed - pt needs assistance for this. Pt amb another 30' back to BS chair - lunch arrives. Call light is within reach and chair alarm is set. Total Physical Therapy Time Total Therapy Minutes 15 Total Physical Therapy Units 1 Summary Daily Note Summary Improved gait ability/ endurance. Would benefit from SNF to improve strength and endurance to return to PLOF.
--- NOTE | 2023-07-30 12:25 | CM.NOTE ---
[facility] called back and are able to accept pt when ready for discharge.
--- NOTE | 2023-07-30 12:34 | CM.NOTE ---
Rounded this AM with patient and Dr. Woody. Pt. is willing to go to SNF and first choice would be [facility] in [facility]. local sales manager aware to make referral. No discharge planned for today.
--- NOTE | 2023-07-30 12:49 | CM.NOTE ---
Important Message from Medicare reviewed with Kiara. Verbalizes she remembers the forms from previous admissions. Copy to chart and copy to Kiara.
--- NOTE | 2023-07-30 13:19 | P.HP_ITS ---
H&P: HPI History of Present Illness Chief complaint: FALL PFSH [facility] Medical History (Updated 07/29/23 @ 14:45 by Aan Weldon NP) Adult failure to thrive ?R62.7 - Adult failure to thrive (ICD-10) CAD (coronary artery disease) ?I25.10 - Atherosclerotic heart disease of [place] coronary artery without angina pectoris (ICD-10) Dehydration ?E86.0 - Dehydration (ICD-10) Dementia ?F03.90 - Unspecified dementia, unspecified severity, without behavioral dist urbance, psychotic disturbance, mood disturbance, and anxiety (ICD-10) Elevated troponin ?R77.8 - Other specified abnormalities of plasma proteins (ICD-10) HLD (hyperlipidemia) ?E78.5 - Hyperlipidemia, unspecified (ICD-10) Hypertension ?I10 - Essential (primary) hypertension (ICD-10) Hypokalemia ?E87.6 - Hypokalemia (ICD-10) Type 2 diabetes mellitus with insulin therapy ?E11.9 - Type 2 diabetes mellitus without complications (ICD-10) ?Z79.4 - long term care pharmacist (current) use of insulin (ICD-10) Surgical History (Updated 07/28/23 @ 23:58 by Carlin Saenz) History of bilateral knee arthroplasty ?Z96.653 - Presence of artificial knee joint, bilateral (ICD-10) Hx of CABG ?Z95.1 - Presence of aortocoronary bypass graft (ICD-10) Family History (Updated 07/29/23 @ 00:00 by Carlin Saenz) Father Family history of CHF (congestive heart failure) Family history of cancer Family history of diabetes mellitus Family history of hypertension Mother Family history of CHF (congestive heart failure) Family history of cancer Family history of diabetes mellitus Family history of hypertension Family history of myocardial infarction Family history of stroke Social History (Updated 07/29/23 @ 00:04 by Carlin Saenz) Within the past year, how often did you have a drink containing alcohol: never Score interpretation: A score less than 3 is consistent with normal alcohol consumption. 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 Known occupational exposures/hazards: No Highest level of school completed/degree received: Associate degree: academic program Do you want help with school or training: No Are you now , , , , never or living with a partner: In a typical week, how many times do you talk on the telephone with family, friends, or neighbors: 3 or more times per week How often do you get together with friends or relatives: twice per week How often do you attend mandaeism or zoroastrianism services: 4 or more times per year Do you belong to any clubs or organizations such as mandaeism groups unions, fraternal or athletic groups, or school groups: yes Total score: 4 Score interpretation: A score of greater than or equal to 2 indicates the lowest level of social isolation. Little interest or pleasure in doing things: not at all Feeling down, depressed, or hopeless: not at all Feel stressed/tense/nervous/anxious/difficulty sleeping: not at all Due to disability, difficulty making decisions: No Do you think of yourself as: straight/heterosexual Gender Identity: female Meds Home Medications and Allergies Home Medications Medication Instructions Recorded Confirmed Type clopidogrel 75 mg tablet 75 mg PO DAILY 04/06/23 07/29/23 History gabapentin 300 mg capsule 300 mg PO Q8H 04/06/23 04/25/23 History insulin glargine 100 unit/mL (3 30 unit subcut .qd 04/06/23 07/29/23 History mL) subcutaneous pen (Lantus Solostar U-100 Insulin) lisinopril 2.5 mg tablet 2.5 mg PO DAILY 04/06/23 04/25/23 History omeprazole 40 mg capsule,delayed 40 mg PO DAILY 04/06/23 04/25/23 History release sitagliptin phosphate 100 mg 100 mg PO DAILY 04/06/23 07/29/23 History tablet (Januvia) amlodipine 10 mg tablet 10 mg PO DAILY 07/29/23 07/29/23 History aspirin 81 mg tablet,delayed 81 mg PO DAILY 07/29/23 07/29/23 History release (Birgit Low Dose Aspirin) atorvastatin 40 mg tablet (Lipitor) 40 mg PO QPM 07/29/23 07/29/23 History dapagliflozin propanediol 10 mg 10 mg PO DAILY 07/29/23 07/29/23 History tablet (Farxiga) dulaglutide 0.75 mg/0.5 mL 0.75 mg subcut QWEEK 07/29/23 07/29/23 History subcutaneous pen injector (Trulicity) metformin 1,000 mg tablet 1,000 mg PO BID 07/29/23 07/29/23 History metoprolol succinate 50 mg 50 mg PO DAILY 07/29/23 07/29/23 History tablet,extended release 24 hr (Toprol XL) spironolactone 25 mg tablet 12.5 mg PO DAILY 07/29/23 07/29/23 History (Aldactone) Allergies Allergy/AdvReac Type Severity Reaction Status Date / Time adhesive tape AdvReac Mild Verified 04/06/23 17:01 hydrocodone [From Vicodin] AdvReac Mild Nausea Verified 04/06/23 17:01 Exam Constitutional Vital Signs, click to edit/add: Last Vital Signs Temp 97.8 F 07/30/23 03:54 Pulse 90 07/30/23 03:54 Resp 22 07/30/23 03:54 BP 136/74 07/30/23 03:54 Pulse Ox 93 L 07/30/23 03:54 O2 Del Method Room Air 07/30/23 03:54 Results Labs Labs: Short CBC 07/30/23 Range/Units 04:37 WBC 8.4 (4.0-11.0) 10^3/uL Hgb 11.2 L (12.0-16.0) g/dL Hct 34.8 L (36.0-48.0) % Plt Count 294 (150-450) 10^3/uL BMP 07/30/23 04:37 Sodium 134 L Potassium 4.2 Chloride 105 Carbon Dioxide 21.1 BUN 41.0 H Creatinine 0.86 Glucose 297 H Calcium 8.4 L Assessment and Plan Assessment and Plan (1) Acute UTI: Assessment and Plan: ACUTE * Adm inpatient * Rocephin IVPB pending urine cx results * No clinical concern for sepsis at this time * Mild leukocytosis resolved today, afebrile, BP stable * CBC, CMP daily (2) DOLORES (acute kidney injury): Assessment and Plan: ACUTE * Suspect d/t dehydration w/ pre-renal azotemia and/or acute UTI * ABX as above * 1 liter IVF bolus given in ED * NS IVF at 125/hr for rehydration * Hold all renal toxic meds including metformin, farxiga, and Januvia * CMP daily (3) Fracture of toe: Assessment and Plan: ACUTE * Taped in the ED * supportive care * consider ortho consult pending clinical course (4) Adult failure to thrive: Assessment and Plan: ACUTE ON CHRONIC * Worsening home situation w/ no running water * Pt unable to get herself to the toilet and frequently sits in feces and urine * [facility], [facility] and APS are aware of this pt's situation * Pt encouraged to do a short SNF stay after discharge but she is refusing so far (5) Frequent falls: Assessment and Plan: ACUTE ON CHRONIC * Multiple EMS calls every week/day for falls assist * Pt refusing home health or SNF admission * Hold home plavix for now (6) Hypertension: Assessment and Plan: CHRONIC * Continue home lisinopril, BB * Hold if sepsis is suspected (7) Elevated troponin: Assessment and Plan: CHRONIC * Stable at baseline (8) CAD (coronary artery disease): Assessment and Plan: CHRONIC * Hold home statin during acute illness/admission. Resume at d/c * Hold home plavix for now d/t frequent falls, risk for ICH (9) Type 2 diabetes mellitus with insulin therapy: Assessment and Plan: CHRONIC * With uncontrolled hyperglycemia * Unclear if pt is following her home med regimen * Continue basal lantus and add insulin SS for correction. Low threshold to increase SS insulin * Med CC diet * ACHS glucometer checks * Metformin, farxiga and Januvia currently on hold * Monitor for possible euglycemic ketoacidosis
--- NOTE | 2023-07-30 13:21 | US_ITS ---
The [address] [address] Patient Name: EMILY HARO MRN: [id number] date: 1955 Sex: F Assigned Patient Location: Current Patient Location: Accession/Order Number: [id number] Exam Date: 07/30/2023 14:15 Report Date: 07/30/2023 15:39 At the request of: VICTORINA CHAVEZ Procedure: US renal BI EXAM: US renal BI HISTORY: DOLORES, recurrent fungal UTI r/o fungal ball COMPARISON: None. TECHNIQUE: Real-time ultrasound imaging of the kidneys and bladder. Findings: The right and left kidneys measure 12.7 and 12.9 cm. There is good corticomedullary differentiation bilaterally. No renal stones or collecting system dilatation. Off the interpolar region of the left kidney is a partially exophytic 2.6 x 2.3 x 2.0 cm hypoechoic lesion with low-level internal echoes consistent with a complex cyst. No perinephric fluid collection. The bladder is partially distended with a prevoid volume of 133 mL. Is otherwise unremarkable. US/US renal BI IMPRESSION: 1. Complex cystic right renal lesion. If indicated, suggest follow-up ultrasound in 6-12 months to assess for stability or consider renal mass protocol CT for further evaluation. Electronically authenticated by: CAMERON MAJANO Date: 07/30/2023 15:39
--- NOTE | 2023-07-30 13:23 | P.PN_ITS ---
Patient seen and examined. Chart reviewed, case d/w RYAN Perez. Agree with her findings, treatment plan. Exam: Sitting on a recliner, NAD CTA b/l ,normal RR NT/ND, bowel sounds +ve AAOX 3, non focal Assessment and plan Metabolic encephalopathy UTI DOLORES C/w current treatment. Doing well. Progress Note: Subjective Subjective Interval history: Date/time of exam: 07/30/23 0950 The pt is watching TV in a bedside chair at the time of my exam. She report feeling pretty good and notes that she feels a little stronger today than on admission. She continues to require significant staff assistance for all ADLs. She denies dysuria but a Sin catheter was placed overnight for apparent urina ry retention. We will d/c this and attempt urinary void trial. Fluconazole added to treat candidal UTI per culture results. Pt agreeable to SNF placement for strengthening today but frequently changes her mind. D/C planning attempting placement. Exam Constitutional Vital Signs, click to edit/add: Last Vital Signs Temp 97.8 F 07/30/23 03:54 Pulse 90 07/30/23 03:54 Resp 22 07/30/23 03:54 BP 136/74 07/30/23 03:54 Pulse Ox 93 L 07/30/23 03:54 O2 Del Method Room Air 07/30/23 03:54 Common normals: no apparent distress, oriented x3 and alert General appearance: cooperative Orientation/consciousness: Yes awake HENMS Common normals: normocephalic, head/scalp atraumatic and hearing grossly normal bilaterally Eye Common normals: PERRL, EOMs intact bilaterally, conjunctivae normal and no scleral icterus General eye: normal appearance of both eyes Chest Common normals: inspection of chest normal Chest: symmetrical chest wall rise Respiratory Common normals: normal respiratory effort, no use of accessory muscles and clear to auscultation bilaterally Effort & inspection: able to speak in complete sentences Cardio Common normals: regular rate, regular rhythm, S1 normal heart sound, S2 normal heart sound, no murmurs and peripheral pulses 2+ throughout GI Common normals: Normal to inspection, nondistended, normoactive bowel sounds present, soft to palpation, non-tender and no hepatosplenomegaly Bladder/kidney exam: bladder normal to palpation Extremity Common normals: normal to inspection and no calf tenderness General: no clubbing, no cyanosis and no edema Neuro Common normals: oriented x3, CN's II-XII intact bilaterally, moves all extremities, no focal motor deficits and no sensory deficits noted Psych Common normals: mental status grossly normal Progress Note: Objective Labs Labs: Short CBC 07/30/23 Range/Units 04:37 WBC 8.4 (4.0-11.0) 10^3/uL Hgb 11.2 L (12.0-16.0) g/dL Hct 34.8 L (36.0-48.0) % Plt Count 294 (150-450) 10^3/uL BMP 07/30/23 04:37 Sodium 134 L Potassium 4.2 Chloride 105 Carbon Dioxide 21.1 BUN 41.0 H Creatinine 0.86 Glucose 297 H Calcium 8.4 L Progress Note: A&P Assessment and Plan (1) Acute UTI: Assessment and Plan: ACUTE * Improving * Pt denies dysuria * Nursing placed sin catheter overnight - d/c now for void trial. Unclear if urinary retention is occurring. Avoid catheterization if possible * Continue Rocephin IVPB - culture growing grover tropicalis only but we clin ically suspect other gram neg pathogens * Repeat urine sent last night after sin insertion * No clinical concern for sepsis at this time * No leukocytosis, afebrile, BP stable * CBC, CMP daily (2) DOLORES (acute kidney injury): Assessment and Plan: ACUTE * Improving * Suspect d/t dehydration w/ pre-renal azotemia and/or acute UTI * ABX as above * US bilat kidneys d/t persistent candidal UTI to r/o fungal ball * Decrease NS IVF to 75/hr for continued rehydration * Hold all renal toxic meds including metformin, farxiga, and Januvia * Likely resume at d/c * CMP daily (3) Fracture of toe: Assessment and Plan: ACUTE * Taped in the ED * supportive care * consider ortho consult pending clinical course (4) Adult failure to thrive: Assessment and Plan: ACUTE ON CHRONIC * Worsening home situation w/ no running water * Pt unable to get herself to the toilet and frequently sits in feces and urine * [facility], on license of [facility] offices and APS are aware of this pt's situation * Pt encouraged to do a short SNF stay after discharge - she tentatively agrees to SNF stay today. Hopefully she does not change her mind (5) Frequent falls: Assessment and Plan: ACUTE ON CHRONIC * Multiple EMS calls every week/day for fall assist * Pt refusing home health, but agrees to SNF admission today * Hold home plavix for now (6) Hypertension: Assessment and Plan: CHRONIC * Continue home lisinopril, BB * Hold if sepsis is suspected (7) Elevated troponin: Assessment and Plan: CHRONIC * Stable at baseline (8) CAD (coronary artery disease): Assessment and Plan: CHRONIC * Hold home statin during acute illness/admission. Resume at d/c * Hold home plavix for now d/t frequent falls, risk for ICH (9) Type 2 diabetes mellitus with insulin therapy: Assessment and Plan: CHRONIC * With uncontrolled hyperglycemia * Unclear if pt is following her home med regimen * Continue basal lantus - consider increasing dose if hyperglycemia persists * Increase SS insulin to high dose today * Med CC diet * ACHS glucometer checks * A1C 10.2 today indicated poorly managed DM2 at baseline * Metformin, farxiga and Januvia currently on hold * Monitor for possible euglycemic ketoacidosis
--- NOTE | 2023-07-30 13:23 | PM.PN ---
Progress Note: Subjective Subjective Interval history: Date/time of exam: 07/30/23 0950 The pt is watching TV in a bedside chair at the time of my exam. She report feeling pretty good and notes that she feels a little stronger today than on admission. She continues to require significant staff assistance for all ADLs. She denies dysuria but a Sin catheter was placed overnight for apparent urinary retention. We will d/c this and attempt urinary void trial. Fluconazole added to treat candidal UTI per culture results. Pt agreeable to SNF placement for strengthening today but frequently changes her mind. D/C planning attempting placement. Exam Constitutional Vital Signs, click to edit/add: Last Vital Signs Temp 97.8 F 07/30/23 03:54 Pulse 90 07/30/23 03:54 Resp 22 07/30/23 03:54 BP 136/74 07/30/23 03:54 Pulse Ox 93 L 07/30/23 03:54 O2 Del Method Room Air 07/30/23 03:54 Common normals: no apparent distress, oriented x3 and alert General appearance: cooperative Orientation/consciousness: Yes awake HENMT Common normals: normocephalic, head/scalp atraumatic and hearing grossly normal bilaterally Eye Common normals: PERRL, EOMs intact bilaterally, conjunctivae normal and no scleral icterus General eye: normal appearance of both eyes Chest Common normals: inspection of chest normal Chest: symmetrical chest wall rise Respiratory Common normals: normal respiratory effort, no use of accessory muscles and clear to auscultation bilaterally Effort & inspection: able to speak in complete sentences Cardio Common normals: regular rate, regular rhythm, S1 normal heart sound, S2 normal heart sound, no murmurs and peripheral pulses 2+ throughout GI Common normals: Normal to inspection, nondistended, normoactive bowel sounds present, soft to palpation, non-tender and no hepatosplenomegaly Bladder/kidney exam: bladder normal to palpation Extremity Common normals: normal to inspection and no calf tenderness General: no clubbing, no cyanosis and no edema Neuro Common normals: oriented x3, CN's II-XII intact bilaterally, moves all extremities, no focal motor deficits and no sensory deficits noted Psych Common normals: mental status grossly normal Progress Note: Objective Labs Labs: Short CBC 07/30/23 Range/Units 04:37 WBC 8.4 (4.0-11.0) 10^3/uL Hgb 11.2 L (12.0-16.0) g/dL Hct 34.8 L (36.0-48.0) % Plt Count 294 (150-450) 10^3/uL [facility] 07/30/23 04:37 Sodium 134 L Potassium 4.2 Chloride 105 Carbon Dioxide 21.1 BUN 41.0 H Creatinine 0.86 Glucose 297 H Calcium 8.4 L Progress Note: A&P Assessment and Plan (1) Acute UTI: Assessment and Plan: ACUTE Improving Pt denies dysuria Nursing placed sin catheter overnight - d/c now for void trial. Unclear if urinary retention is occurring. Avoid catheterization if possible Continue Rocephin IVPB - culture growing grover tropicalis only but we clinically suspect other gram neg pathogens Repeat urine sent last night after sin insertion No clinical concern for sepsis at this time No leukocytosis, afebrile, BP stable CBC, CMP daily (2) DOLORES (acute kidney injury): Assessment and Plan: ACUTE Improving Suspect d/t dehydration w/ pre-renal azotemia and/or acute UTI ABX as above US bilat kidneys d/t persistent candidal UTI to r/o fungal ball Decrease NS IVF to 75/hr for continued rehydration Hold all renal toxic meds including metformin, farxiga, and Januvia Likely resume at d/c CMP daily (3) Fracture of toe: Assessment and Plan: ACUTE Taped in the ED supportive care consider ortho consult pending clinical course (4) Adult failure to thrive: Assessment and Plan: ACUTE ON CHRONIC Worsening home situation w/ no running water Pt unable to get herself to the toilet and frequently sits in feces and urine [facility], [facility] and [facility]PS are aware of this pt's situation Pt encouraged to do a short SNF stay after discharge - she tentatively agrees to SNF stay today. Hopefully she does not change her mind (5) Frequent falls: Assessment and Plan: ACUTE ON CHRONIC Multiple EMS calls every week/day for fall assist Pt refusing home health, but agrees to SNF admission today Hold home plavix for now (6) Hypertension: Assessment and Plan: CHRONIC Continue home lisinopril, BB Hold if sepsis is suspected (7) Elevated troponin: Assessment and Plan: CHRONIC Stable at baseline (8) CAD (coronary artery disease): Assessment and Plan: CHRONIC Hold home statin during acute illness/admission. Resume at d/c Hold home plavix for now d/t frequent falls, risk for ICH (9) Type 2 diabetes mellitus with insulin therapy: Assessment and Plan: CHRONIC With uncontrolled hyperglycemia Unclear if pt is following her home med regimen Continue basal lantus - consider increasing dose if hyperglycemia persists Increase SS insulin to high dose today Med CC diet ACHS glucometer checks A1C 10.2 today indicated poorly managed DM2 at baseline Metformin, farxiga and Januvia currently on hold Monitor for possible euglycemic ketoacidosis
[2023-07-30 14:00] VITALS: BP 135/62; PULSE 82; RESP 18; TEMP 36.5; O2SAT 95
[2023-07-30] MEDS: 0.9 % SODIUM CHLORIDE 1,000 ML 75 ML IV (14:11)
[2023-07-30] MEDS: FLUCONAZOLE 100 MG TABLET 400 MG PO (14:11)
[2023-07-30 15:36] LABS: Glucometer 207 mg/dL (74-106)
[2023-07-30 21:04] LABS: Glucometer 194 mg/dL (74-106)
[2023-07-30 21:06] VITALS: BP 150/71; PULSE 45; RESP 18; TEMP 36.8; O2SAT 93
[2023-07-30 23:04] VITALS: RESP 18
[2023-07-30 23:22] LABS: Glucometer 220 mg/dL (74-106)
[2023-07-30] MEDS: CEFTRIAXONE 1,000 MG in 0.9 % SODIUM CHLORIDE 50 ML 100 MG IV (23:25)
[2023-07-31] MEDS: 0.9 % SODIUM CHLORIDE 1,000 ML 75 ML IV (04:02)
[2023-07-31 05:17] VITALS: BP 163/82; PULSE 74; RESP 18; TEMP 37; O2SAT 97
[2023-07-31 05:41] LABS: Basophils Percent Auto 0.3 % (0.2-2.0); Eosinophils Absolute Auto 0.3 10^3/uL (0.0-0.7); Eosinophils Percent Auto 3.3 % (0.9-7.0); Hemoglobin 11.1 g/dL (12.0-16.0); Immature Granulocytes Abs Auto 0.13 10^3/uL (0.00-0.03); Immature Granulocytes Pct Auto 1.4 % (0.0-0.5); Lymphocytes Absolute Auto 2.2 10^3/uL (1.2-3.8); Lymphocytes Percent Auto 23.1 % (20.5-60.0); Mean Corpuscular HGB Conc 31.7 g/dL (29.9-35.2); Mean Corpuscular Hemoglobin 27.8 pg (26.7-34.0); Mean Corpuscular Volume 87.7 fL (81.0-99.0); Mean Platelet Volume 11.7 fL (9.5-13.5); Monocytes Absolute Auto 1.1 10^3/uL (0.3-0.8); Monocytes Percent Auto 11.2 % (1.7-12.0); Neutrophils Absolute Auto 5.8 10^3/uL (1.4-6.5); Neutrophils Percent Auto 60.7 % (43.0-75.0); Platelet Count 314 10^3/uL (150-450); Red Blood Count 3.99 10^6/uL (4.20-5.40); Red Cell Distribution Width 14.1 % (11.0-15.0); White Blood Count 9.6 10^3/uL (4.0-11.0)
[2023-07-31 05:50] LABS: Anion Gap 10.9; BUN Creatinine Ratio 28.2; Calcium 8.7 mg/dL (8.5-10.1); Carbon Dioxide 21.8 mmol/L (21.0-32.0); Chloride 107 mmol/L (98-107); Estimated GFR (African America >60 (>=60); Estimated GFR (Non-African Ame >60 (>=60); Glucose 135 mg/dL (74-106); Potassium 3.7 mmol/L (3.5-5.1); Sodium 136 mmol/L (136-145)
[2023-07-31] MEDS: OMEPRAZOLE 40 MG CAPSULE.DR PO (06:27)
[2023-07-31] MEDS: NYSTATIN 15 GM POWDER 1 APPLIC TOPICAL ×2 (06:28→20:35)
[2023-07-31] MEDS: NICOTINE 14 MG PATCH TD (08:37)
[2023-07-31 08:38] VITALS: BP 139/77
[2023-07-31] MEDS: AMLODIPINE BESYLATE 5 MG TABLET 10 MG PO (08:38)
[2023-07-31] MEDS: METOPROLOL SUCCINATE 50 MG TAB.ER.24H PO (08:38)
[2023-07-31] MEDS: FLUCONAZOLE 100 MG TABLET 400 MG PO (08:38)
[2023-07-31] MEDS: INSULIN DETEMIR 300 UNIT/3 ML INSULN.PEN 15 UNIT SUBQ ×2 (08:40→20:29)
--- NOTE | 2023-07-31 10:49 | CT_ITS ---
[place] [id number] Patient Name: EMILY HARO MRN: [id number] date: 1955 Sex: F Assigned Patient Location: Current Patient Location: Accession/Order Number: [id number] Exam Date: 07/31/2023 11:24 Report Date: 07/31/2023 12:04 At the request of: VICTORINA CHAVEZ Procedure: CT abdomen wo/w con EXAM: CT abdomen wo/w con; [id number] REASON FOR EXAM: Renal mass protocol. R cmplx cyst, r/o mass. TECHNIQUE: Helical CT images of the abdomen were obtained both before and after the administration of IV contrast (kidney protocol). Postcontrast images were performed in the portal venous and delayed urographic phases. Multiplanar reformats were generated at the scanner. Dose reduction technique used: Automated exposure control and/or adjustment of the mA and/or kV according to patient size and/or use of iterative reconstruction technique. COMPARISON: Renal ultrasound 07/30/[address] abdomen/pelvis 07/30/2022. FINDINGS: Visualized Chest: No pleural effusion or any significant pulmonary findings. Abdomen: Liver: Within normal limits. No enhancing mass. Gallbladder: Resected. Bile Ducts: No significant biliary ductal dilatation. Pancreas: No mass, ductal dilatation, or inflammatory changes. Spleen: No splenomegaly or focal lesion. Adrenals: Benign left adrenal adenoma measuring 14 x 10 mm. No right adrenal nodule. Kidneys: -No stones or hydronephrosis. -Nonenhancing simple partially exophytic cyst arising from the posterior medial aspect of the lower pole of the right kidney which measures 2.4 x 2.9 cm (series 6 image 57) slightly increased in size compared with 07/30/2022 at which point it measured 26 x 26 mm. -A single subcentimeter hypodensity in the anterior aspect of the interpolar region of the right kidney is too small to further characterize with any imaging modality though likely represents a benign cyst. -No suspicious filling defect within the upper urinary collecting systems. Visualized Vascular: No aortic aneurysm. Lymph Nodes: No adenopathy. Visualized Abdominal Wall: No hernia or mass. Visualized Bowel/Peritoneal Cavity/Mesentery: -No enhancing mass. -No bowel obstruction or significant ileus. -No acute inflammatory changes. -No free air or free fluid. Musculoskeletal: No acute fracture or suspicious osseous lesion. CT/CT abdomen wo/w con IMPRESSION: 1. Cysts seen on the renal ultrasound from 07/30/2023 corresponds with a nonenhancing Bosniak 1 cyst in the right kidney measuring up to 2.9 cm. No further evaluation or follow-up required. 2. No suspicious renal lesion demonstrated. 3. Benign left adrenal adenoma measuring up to 1.4 cm. If not already performed, recommend biochemical analysis to evaluate for functioning adenoma. Electronically authenticated by: MELISSA ALEXIS Date: 07/31/2023 12:04
--- NOTE | 2023-07-31 11:11 | CM.NOTE ---
2nd Important Message From Medicare verbally discussed with pt, pt verbalizes understanding and denies any questions or concerns.
[2023-07-31 11:12] LABS: Glucometer 194 mg/dL (74-106)
--- NOTE | 2023-07-31 11:25 | CM.NOTE ---
Rounding with Dr. Woody. Pt. resting in bed and still remains in agreement to go to [facility] upon discharge. Anticipated discharge possibly 08/01.
--- NOTE | 2023-07-31 11:36 | PT.DAILY ---
Physical Therapy Daily Note PT Daily Note/Assess Start: 07/30/23 12:06 Freq: Status: Active Protocol: Document 07/31/23 11:35 NATALY (Rec: 07/31/23 11:36 NATALY [id number]) Visit Not Completed Visit Not Completed Visit Not Completed Due to: Pt out of room Other Reason Visit Not Completed Getting CT of abdomen. Not in room at this time. Physical Therapy Daily Note/Assessment Time In/Time Out Time In 11:34 Time Out 11:34 Pain In Pain N/A Pain Out Pain N/A GG. Functional Abilities and Goals-Complete for Swing Bed Patients Only [id number]. Self-Care [id number]. Mobility
[2023-07-31 13:25] VITALS: BP 150/70; PULSE 78; RESP 20; TEMP 37.1; O2SAT 94
--- NOTE | 2023-07-31 13:59 | P.PN_ITS ---
Seen and examined. Doing well. No overnight events. Case d/w RYAN Perez. Agree with her documentation, treatment plan Exam: Laying in bed, comfortable AAOX 3, non focal. NT, ND, BS+ve Assessment and plan: C/w gentle IVF, IV abx. Doing well. Slowly improving. Mental status back to baseline. Possible d/c tomorrow to SNF. Abnormal cyst noted on US - will get CT abd to assess in detail. Progress Note: Subjective Subjective Interval history: Date/time of exam: 07/31/23 0945 The pt is watching TV from bed at the time of my exam. She report feeling pretty good and notes that she continues to feel a little stronger every day. She continues to require significant staff assistance for all ADLs. She voiding well after [place] discontinuation. Renal US obtained yesterday to assess for fungal ball d/t persistent candiduria. Right complex renal cyst noted and CT imaging recommended for more definitive assessment. We will obtain a CT abdomen renal mass protocol w/ contrast dye today. Pt agreeable to SNF placement for strengthening and D/C planning attempting to find placement once the pt is medically stable. Exam Constitutional Vital Signs, click to edit/add: Last Vital Signs Temp 98.8 F 07/31/23 13:25 Pulse 78 07/31/23 13:25 Resp 20 07/31/23 13:25 BP 150/70 H 07/31/23 13:25 Pulse Ox 94 L 07/31/23 13:25 O2 Del Method Room Air 07/31/23 13:25 Common normals: no apparent distress, oriented x3 and alert General appearance: cooperative Orientation/consciousness: Yes awake [facility] Common normals: normocephalic, head/scalp atraumatic and hearing grossly normal bilaterally Head and scalp: normocephalic and atraumatic Eye Common normals: PERRL, EOMs intact bilaterally, conjunctivae normal and no scleral icterus General eye: normal appearance of both eyes Chest Common normals: inspection of chest normal Chest: symmetrical chest wall rise Respiratory Common normals: normal respiratory effort, no use of accessory muscles and clear to auscultation bilaterally Effort & inspection: able to speak in complete sentences Cardio Common normals: regular rate, regular rhythm, S1 normal heart sound, S2 normal heart sound, no murmurs and peripheral pulses 2+ throughout GI Common normals: Normal to inspection, nondistended, normoactive bowel sounds present, soft to palpation, non-tender and no hepatosplenomegaly Bladder/kidney exam: bladder normal to palpation Extremity Common normals: normal to inspection and no calf tenderness General: no clubbing, no cyanosis and no edema Neuro Common normals: oriented x3, CN's II-XII intact bilaterally, moves all extremities, no focal motor deficits and no sensory deficits noted Psych Common normals: mental status grossly normal Progress Note: Objective Labs Labs: Short CBC 07/31/23 Range/Units 04:33 WBC 9.6 (4.0-11.0) 10^3/uL Hgb 11.1 L (12.0-16.0) g/dL Hct 35.0 L (36.0-48.0) % Plt Count 314 (150-450) 10^3/uL BMP 07/31/23 04:33 Sodium 136 Potassium 3.7 Chloride 107 Carbon Dioxide 21.8 BUN 20.0 H Creatinine 0.71 Glucose 135 H Calcium 8.7 Imaging Renal US: Attestation: I have reviewed the pertinent imaging results. Radiologist's impression: IMPRESSION: 1. Complex cystic right renal lesion. If indicated, suggest follow-up ultrasound in 6-12 months to assess for stability or consider renal mass protocol CT for further evaluation. Progress Note: A&P Assessment and Plan (1) Acute UTI: Assessment and Plan: ACUTE * Improving * Pt denies dysuria * Urinating well after catheter removal * Continue Rocephin IVPB - culture growing grover tropicalis only but we clinically suspect other gram neg pathogens * Fluconazole added for candiduria per Cx - plan 14 day course, Day 11/06 * No clinical concern for sepsis at this time * No leukocytosis, afebrile, BP stable * CBC, CMP daily (2) DOLORES (acute kidney injury): Assessment and Plan: ACUTE * Resolving * Suspect d/t dehydration w/ pre-renal azotemia and/or acute UTI * ABX as above * US bilat kidneys d/t persistent candidal UTI to r/o fungal ball - complex cyst noted * Hold all renal toxic meds including metformin, farxiga, and Januvia * Likely resume at d/c * S.L. IVF today * CMP daily (3) Renal cyst, acquired, right: Assessment and Plan: ACUTE ON CHRONIC * complex R cyst noted on renal US * Obtain CT abdomen w/ renal mass protocol for more definitive evaluation * No mention of fungal ball on US (4) Fracture of toe: Assessment and Plan: ACUTE * Taped in the ED * supportive care * consider ortho consult pending clinical course (5) Adult failure to thrive: Assessment and Plan: ACUTE ON CHRONIC * Worsening home situation w/ no running water * Pt unable to get herself to the toilet and frequently sits in feces and urine * [facility], [facility] offices and APS are aware of this pt's situation * Pt encouraged to do a short SNF stay after discharge - she tentatively agrees to SNF stay today. Hopefully she does not change her mind (6) Frequent falls: Assessment and Plan: ACUTE ON CHRONIC * Multiple EMS calls every week/day for fall assist * Pt refusing home health, but agrees to SNF admission today * Hold home plavix for now (7) Hypertension: Assessment and Plan: CHRONIC * Continue home lisinopril, BB (8) Elevated troponin: Assessment and Plan: CHRONIC * Stable at baseline (9) CAD (coronary artery disease): Assessment and Plan: CHRONIC * Hold home statin during acute illness/admission. Resume at d/c * Hold home plavix for now d/t frequent falls, risk for ICH (10) Type 2 diabetes mellitus with insulin therapy: Assessment and Plan: CHRONIC * With uncontrolled hyperglycemia * Unclear if pt is following her home med regimen * Continue basal lantus - consider increasing dose if hyperglycemia persists * Increase SS insulin to high dose today * Med CC diet * ACHS glucometer checks * A1C 10.2 today indicated poorly managed DM2 at baseline * Metformin, farxiga and Januvia currently on hold * Monitor for possible euglycemic ketoacidosis
--- NOTE | 2023-07-31 13:59 | PM.PN ---
Progress Note: Subjective Subjective Interval history: Date/time of exam: 07/31/23 0945 The pt is watching TV from bed at the time of my exam. She report feeling pretty good and notes that she continues to feel a little stronger every day. She continues to require significant staff assistance for all ADLs. She voiding well after [place] discontinuation. Renal US obtained yesterday to assess for fungal ball d/t persistent candiduria. Right complex renal cyst noted and CT imaging recommended for more definitive assessment. We will obtain a CT abdomen renal mass protocol w/ contrast dye today. Pt agreeable to SNF placement for strengthening and D/C planning attempting to find placement once the pt is medically stable. Exam Constitutional Vital Signs, click to edit/add: Last Vital Signs Temp 98.8 F 07/31/23 13:25 Pulse 78 07/31/23 13:25 Resp 20 07/31/23 13:25 BP 150/70 H 07/31/23 13:25 Pulse Ox 94 L 07/31/23 13:25 O2 Del Method Room Air 07/31/23 13:25 Common normals: no apparent distress, oriented x3 and alert General appearance: cooperative Orientation/consciousness: Yes awake [facility] Common normals: normocephalic, head/scalp atraumatic and hearing grossly normal bilaterally Head and scalp: normocephalic and atraumatic Eye Common normals: PERRL, EOMs intact bilaterally, conjunctivae normal and no scleral icterus General eye: normal appearance of both eyes Chest Common normals: inspection of chest normal Chest: symmetrical chest wall rise Respiratory Common normals: normal respiratory effort, no use of accessory muscles and clear to auscultation bilaterally Effort & inspection: able to speak in complete sentences Cardio Common normals: regular rate, regular rhythm, S1 normal heart sound, S2 normal heart sound, no murmurs and peripheral pulses 2+ throughout GI Common normals: Normal to inspection, nondistended, normoactive bowel sounds present, soft to palpation, non-tender and no hepatosplenomegaly Bladder/kidney exam: bladder normal to palpation Extremity Common normals: normal to inspection and no calf tenderness General: no clubbing, no cyanosis and no edema Neuro Common normals: oriented x3, CN's II-XII intact bilaterally, moves all extremities, no focal motor deficits and no sensory deficits noted Psych Common normals: mental status grossly normal Progress Note: Objective Labs Labs: Short CBC 07/31/23 Range/Units 04:33 WBC 9.6 (4.0-11.0) 10^3/uL Hgb 11.1 L (12.0-16.0) g/dL Hct 35.0 L (36.0-48.0) % Plt Count 314 (150-450) 10^3/uL BMP 07/31/23 04:33 Sodium 136 Potassium 3.7 Chloride 107 Carbon Dioxide 21.8 BUN 20.0 H Creatinine 0.71 Glucose 135 H Calcium 8.7 Imaging Renal US: Attestation: I have reviewed the pertinent imaging results. Radiologist's impression: IMPRESSION: 1. Complex cystic right renal lesion. If indicated, suggest follow-up ultrasound in 6-12 months to assess for stability or consider renal mass protocol CT for further evaluation. Progress Note: A&P Assessment and Plan (1) Acute UTI: Assessment and Plan: ACUTE Improving Pt denies dysuria Urinating well after catheter removal Continue Rocephin IVPB - culture growing grover tropicalis only but we clinically suspect other gram neg pathogens Fluconazole added for candiduria per Cx - plan 14 day course, Day 2 No clinical concern for sepsis at this time No leukocytosis, afebrile, BP stable CBC, CMP daily (2) DOLORES (acute kidney injury): Assessment and Plan: ACUTE Resolving Suspect d/t dehydration w/ pre-renal azotemia and/or acute UTI ABX as above US bilat kidneys d/t persistent candidal UTI to r/o fungal ball - complex cyst noted Hold all renal toxic meds including metformin, farxiga, and Januvia Likely resume at d/c S.L. IVF today CMP daily (3) Renal cyst, acquired, right: Assessment and Plan: ACUTE ON CHRONIC complex R cyst noted on renal US Obtain CT abdomen w/ renal mass protocol for more definitive evaluation No mention of fungal ball on US (4) Fracture of toe: Assessment and Plan: ACUTE Taped in the ED supportive care consider ortho consult pending clinical course (5) Adult failure to thrive: Assessment and Plan: ACUTE ON CHRONIC Worsening home situation w/ no running water Pt unable to get herself to the toilet and frequently sits in feces and urine [facility] department, [facility] offices and APS are aware of this pt's situation Pt encouraged to do a short SNF stay after discharge - she tentatively agrees to SNF stay today. Hopefully she does not change her mind (6) Frequent falls: Assessment and Plan: ACUTE ON CHRONIC Multiple EMS calls every week/day for fall assist Pt refusing home health, but agrees to SNF admission today Hold home plavix for now (7) Hypertension: Assessment and Plan: CHRONIC Continue home lisinopril, BB (8) Elevated troponin: Assessment and Plan: CHRONIC Stable at baseline (9) CAD (coronary artery disease): Assessment and Plan: CHRONIC Hold home statin during acute illness/admission. Resume at d/c Hold home plavix for now d/t frequent falls, risk for ICH (10) Type 2 diabetes mellitus with insulin therapy: Assessment and Plan: CHRONIC With uncontrolled hyperglycemia Unclear if pt is following her home med regimen Continue basal lantus - consider increasing dose if hyperglycemia persists Increase SS insulin to high dose today Med CC diet ACHS glucometer checks A1C 10.2 today indicated poorly managed DM2 at baseline Metformin, farxiga and Januvia currently on hold Monitor for possible euglycemic ketoacidosis
--- NOTE | 2023-07-31 14:14 | CM.NOTE ---
Updated pt about spring and possible discharge tomorrow for skilled therapy.
[2023-07-31 15:59] LABS: Glucometer 340 mg/dL (74-106)
[2023-07-31] MEDS: INSULIN ASPART 300 UNIT/3 ML PEN SUBQ ×2 (16:01→20:30)
[2023-07-31 19:48] VITALS: BP 146/65; PULSE 78; RESP 20; TEMP 36.8; O2SAT 94
[2023-07-31 19:57] LABS: Glucometer 304 mg/dL (74-106)
[2023-07-31 20:08] VITALS: O2SAT 96
--- NOTE | 2023-07-31 20:08 | RESP.RT ---
No PRN breathing tx given. Pt denies need. No respiratory distress noted.
[2023-07-31] MEDS: CALCIUM CARBONATE 500 MG (200MG ELEMENTAL) TAB CHEW PO (20:28)
[2023-07-31] MEDS: CEFTRIAXONE 1,000 MG in 0.9 % SODIUM CHLORIDE 50 ML 100 MG IV (20:31)
[2023-08-01 03:56] VITALS: BP 137/67; PULSE 76; RESP 18; TEMP 36.8; O2SAT 95
[2023-08-01] MEDS: OMEPRAZOLE 40 MG CAPSULE.DR PO (04:10)
[2023-08-01] MEDS: NYSTATIN 15 GM POWDER 1 APPLIC TOPICAL ×2 (04:11→14:06)
[2023-08-01 05:57] LABS: Basophils Percent Auto 0.5 % (0.2-2.0); Eosinophils Absolute Auto 0.3 10^3/uL (0.0-0.7); Hematocrit 35.8 % (36.0-48.0); Hemoglobin 11.5 g/dL (12.0-16.0); Immature Granulocytes Abs Auto 0.14 10^3/uL (0.00-0.03); Immature Granulocytes Pct Auto 1.6 % (0.0-0.5); Lymphocytes Absolute Auto 2.2 10^3/uL (1.2-3.8); Lymphocytes Percent Auto 25.8 % (20.5-60.0); Mean Corpuscular HGB Conc 32.1 g/dL (29.9-35.2); Mean Corpuscular Hemoglobin 27.8 pg (26.7-34.0); Mean Corpuscular Volume 86.7 fL (81.0-99.0); Mean Platelet Volume 11.6 fL (9.5-13.5); Monocytes Absolute Auto 0.9 10^3/uL (0.3-0.8); Monocytes Percent Auto 10.5 % (1.7-12.0); Neutrophils Percent Auto 58.6 % (43.0-75.0); Platelet Count 311 10^3/uL (150-450); Red Blood Count 4.13 10^6/uL (4.20-5.40); Red Cell Distribution Width 14.1 % (11.0-15.0); White Blood Count 8.6 10^3/uL (4.0-11.0)
[2023-08-01 06:04] LABS: Anion Gap 10.2; BUN Creatinine Ratio 30.9; Calcium 8.8 mg/dL (8.5-10.1); Carbon Dioxide 23.3 mmol/L (21.0-32.0); Chloride 107 mmol/L (98-107); Estimated GFR (African America >60 (>=60); Estimated GFR (Non-African Ame >60 (>=60); Glucose 100 mg/dL (74-106); Potassium 3.5 mmol/L (3.5-5.1); Sodium 137 mmol/L (136-145)
[2023-08-01] MEDS: NICOTINE 14 MG PATCH TD (10:15)
[2023-08-01] MEDS: INSULIN DETEMIR 300 UNIT/3 ML INSULN.PEN 15 UNIT SUBQ (10:15)
[2023-08-01] MEDS: FLUCONAZOLE 100 MG TABLET 400 MG PO (10:16)
[2023-08-01] MEDS: AMLODIPINE BESYLATE 5 MG TABLET 10 MG PO (10:16)
[2023-08-01] MEDS: METOPROLOL SUCCINATE 50 MG TAB.ER.24H PO (10:16)
[2023-08-01 10:43] VITALS: O2SAT 95
[2023-08-01 11:07] LABS: Glucometer 194 mg/dL (74-106)
--- NOTE | 2023-08-01 11:17 | PT.DAILY ---
Physical Therapy Daily Note PT Daily Note/Assess Start: 07/30/23 12:06 Freq: Status: Active Protocol: Document 08/01/23 11:13 NATALY (Rec: 08/01/23 11:17 NATALY [id number]) Physical Therapy Daily Note/Assessment Time In/Time Out Time In 09:55 Time Out 10:07 Pain In Pain N/A Pain Out Pain N/A Subjective Subjective pt supine upon arrival. Reports needing to use restroom. Agrees to PT. Seems a little more confused today or loses train of thought quickly. Therapeutic Exercise Time Therapeutic Exercise Minutes (minutes) 3 Therapeutic Exercise Units 0 Therapeutic Exercise Treatment Therapeutic Exercise Treatment Seated LE strengthening ex complete in BS chair 10x ea. Therapeutic Activity Time Therapeutic Activity Minutes (minutes) 8 Therapeutic Activity Units 1 Therapeutic Activity Treatment Bed Mobility Ability Minimum Assist Chair Transfer Ability Contact Guard Assist Therapeutic Activity Comments Pt performs supine>sit transfer with Ty to advance upper body to sit EOB. Requires increased time for this. pt sits EOB 4 min unsupported without LOB. Sit> stand from elevated bed CGA with increased time needed. Pt amb 40' in room then to restroom. Toilet transfer using grab bars CGA. Pt amb 25 ' to BS chair with RW, SBA. Seated ex complete in BS chair . Remains seated with call light in reach and needs met. Total Physical Therapy Time Total Therapy Minutes 11 Total Physical Therapy Units 1 Summary Daily Note Summary Improved gait endurance today with RW.
--- NOTE | 2023-08-01 12:00 | CM.NOTE ---
Rounded with Dr. Woody this AM. Plan is to discharge today to [facility] and patient remains in agreement with this plan.
--- NOTE | 2023-08-01 12:50 | P.DS_ITS ---
Seen and examined. Chart reviewed, case d/w Ana. Agree with her findings, treatment plan Patient stable for discharge. Accepted for skilled rehab. Exam Laying in bed, comfortable AAOX 3, non focal UTI Metabolic encephalopathy F/u with PCP in one week DS: Providers Provider Date of admission: 07/29/23 11:06 Primary care physician: Non-Staff Physician, Consults: 07/29/23 Consult to Cyber Systems Engineer Routine Reason for consult:: Housing/Intermediate 07/29/23 01:27 Physical Therapy Eval and Treat Routine Reason for consultation: weakness 07/29/23 01:28 Occupational Therapy Eval and Treat Routine Reason for consultation: weakness 07/29/23 01:33 Consult to Wound Care Routine Consulting Provider: Adolph Sharp Reason for consultation: wound care Discharging clinician: Ana Weldon DS: Diagnosis Discharge Diagnosis (1) Acute UTI: (2) DOLORES (acute kidney injury): (3) Renal cyst, acquired, right: (4) Fracture of toe: (5) Adult failure to thrive: (6) Frequent falls: (7) Hypertension: (8) Elevated troponin: (9) CAD (coronary artery disease): (10) Type 2 diabetes mellitus with insulin therapy: DS: Summary Hospital Course Hospital Course: The patient was admitted with a UTI, DOLORES, severe generalized weakness and frequent falls with adult failure to thrive. She also was found to have an acute L 5th toe fracture. She was treated with empiric IVPB Rocephin for her UTI. Her UTI finally grew out Estelita tropicalis which represents her second candidal urine infection in a short period of time. A Renal ultrasound was obtained to rule out fungal ball and this was negative for fungal ball but did note a complex right renal cyst. A follow-up CT of the kidney was obtained to rule out a mass and a benign renal cyst was the only finding. Diflucan was added to her UTI treatment plan. Her renal function resolved to her baseline with IVFs and UTI treatment. Her fractured toe was marina-taped and appears stable. As further rehab strengthening was recommended she is being discharged in stable condition to a local SNF for strengthening. She should follow up with her PCP or the SNF provider in 5-7 days. Her toe should remain marina-taped for 4-6 weeks or until the tenderness has resolved. Diflucan has been prescribed at discharge to complete a 14 day course. A BMP should be obtained within 1 week to continue to monitor her renal function as all potentially renal toxic home medications have now been resumed. Time Spent with Patient Time attestation: Total time spent providing and/or coordinating discharge services: Time spent: greater than 30 minutes Specific discharge activities: Physical exam, discussion of discharge plan, questions answered. Exam Constitutional Vital Signs, click to edit/add: Last Vital Signs Temp 98.3 F 08/01/23 03:56 Pulse 76 08/01/23 03:56 Resp 18 08/01/23 03:56 BP 137/67 08/01/23 03:56 Pulse Ox 95 08/01/23 10:43 O2 Del Method Room Air 08/01/23 10:43 Common normals: no apparent distress, oriented x3 and alert General appearance: cooperative Orientation/consciousness: Yes awake [facility] Common normals: normocephalic and head/scalp atraumatic Eye Common normals: PERRL, EOMs intact bilaterally, conjunctivae normal and no scleral icterus Respiratory Common normals: normal respiratory effort, no use of accessory muscles and clear to auscultation bilaterally Effort & inspection: able to speak in complete sentences and symmetric chest movement Cardio Common normals: no JVD, regular rate, S1 normal heart sound, S2 normal heart sound, no murmurs and peripheral pulses 2+ throughout GI Common normals: Normal to inspection, nondistended, normoactive bowel sounds present, soft to palpation and non-tender Bladder/kidney exam: bladder normal to palpation Extremity Common normals: normal to inspection, full ROM, normal capillary refill and no pedal edema Neuro Common normals: moves all extremities, no focal motor deficits and no sensory deficits noted Speech: speech normal Psych Common normals: mental status grossly normal and activity/motor behavior normal DS: Data Data Completed and Pending Labs on day of discharge: Labs from last 24 hours 08/01/23 08/01/23 07/31/23 11:04 05:12 19:55 WBC 8.6 RBC 4.13 L Hgb 11.5 L Hct 35.8 L MCV 86.7 MCH 27.8 MCHC 32.1 RDW 14.1 Plt Count 311 MPV 11.6 Neut % (Auto) 58.6 Lymph % (Auto) 25.8 [place] % (Auto) 10.5 Eos % (Auto) 3.0 Baso % (Auto) 0.5 Neut # (Auto) 5.0 Lymph # (Auto) 2.2 [place] # (Auto) 0.9 H Eos # (Auto) 0.3 Baso # (Auto) 0.0 Abs Immat Gran (auto) 0.14 H Imm/Tot Granulo (auto) 1.6 H Sodium 137 Potassium 3.5 Chloride 107 Carbon Dioxide 23.3 Anion Gap 10.2 BUN 21.0 H Creatinine 0.68 Est GFR ( Amer) >60 Est GFR (Non-Af Amer) >60 BUN/Creatinine Ratio 30.9 Glucose 100 Calcium 8.8 POC Glucose 194 H 304 H 07/31/23 15:59 WBC RBC Hgb Hct MCV MCH MCHC RDW Plt Count MPV Neut % (Auto) Lymph % (Auto) [place] % (Auto) Eos % (Auto) Baso % (Auto) Neut # (Auto) Lymph # (Auto) [place] # (Auto) Eos # (Auto) Baso # (Auto) Abs Immat Gran (auto) Imm/Tot Granulo (auto) Sodium Potassium Chloride Carbon Dioxide Anion Gap BUN Creatinine Est GFR ( Amer) Est GFR (Non-Af Amer) BUN/Creatinine Ratio Glucose Calcium POC Glucose 340 H Discharge Plan Discharge Disposition: Xfer SNF Condition: Fair Discharge Medications: New fluconazole 200 mg tablet 400 mg PO DAILY 11 Days Qty: 22 0RF Continued amlodipine 10 mg tablet 10 mg PO DAILY Farxiga 10 mg tablet 10 mg PO DAILY atorvastatin [Lipitor] 40 mg tablet 40 mg PO QPM metformin 1,000 mg tablet 1,000 mg PO BID metoprolol succinate [Toprol XL] 50 mg tablet extended release 24 hr 50 mg PO DAILY spironolactone [Aldactone] 25 mg tablet 12.5 mg PO DAILY aspirin [Birgit Low Dose Aspirin] 81 mg tablet,delayed release (DR/EC) 81 mg PO DAILY Trulicity 0.75 mg/0.5 mL pen injector 0.75 mg subcut QWEEK Patient Comments: on mondays gabapentin 300 mg capsule 300 mg PO Q8H insulin glargine [Lantus Solostar U-100 Insulin] 100 unit/mL (3 mL) insulin pen 30 unit SUBCUT .qd Rx Instructions: PER RETAIL FILL HX - LAST FILLED 02/03/23 FOR A 62 DAY SUPPLY lisinopril 2.5 mg tablet 2.5 mg PO DAILY Rx Instructions: PER RETAIL FILL HX - LAST FILLED 01/03/23 #90 FOR A 90 DAY SUPPLY 75% ADHERENCE RATE clopidogrel 75 mg tablet 75 mg PO DAILY omeprazole 40 mg capsule,delayed release(DR/EC) 40 mg PO DAILY Rx Instructions: PER RETAIL FILL HX - LAST FILLED 01/03/23 #90 FOR A 90 DAY SUPPLY 73% ADHERENCE RATE Januvia 100 mg tablet 100 mg PO DAILY Rx Instructions: PER RETAIL FILL HX - LAST FILLED 02/11/23 #90 FOR A 90 DAY SUPPLY 65% ADHERENCE RATE Activity Restrictions/Additional Instructions: - Obtain BMP within 1 week to monitor renal function after resumption of all medications - DOLORES - Remove/replace L 5th toe marina taping q72 hrs. Gauze between the taped toes to prevent maceration. Keep taped for 4-6 weeks - until the tenderness has resolved. Forms: Portal Instructions Follow Up Appointments: - PCP or SNF provider in 5-7 days Discharge Date/Time: 08/01/23 16:07 Discharge Location: [facility]
[2023-08-01] MEDS: INSULIN ASPART 300 UNIT/3 ML PEN SUBQ (14:06)
--- NOTE | 2023-08-01 14:18 | CM.NOTE ---
Pt discharged to [facility] today for skilled therapy. Pt will go by [facility] with transport time 4:30. Called [facility] with time and faxed discharge summary and medication list. HEN's completed in computer for skilled nursing.
[2023-08-01 15:32] VITALS: BP 142/75; PULSE 74; RESP 18; TEMP 36.7; O2SAT 92
--- NOTE | 2023-08-01 16:13 | PC.NURSE ---
report called to ronda at [facility]. All questions answered
== END 2023-08-01 16:07 | DRG 757 ==
LOC: ER 22:58 → MS 07-29 01:25
PROVIDERS: Nurse Practitioner; Personal Emergency Response Attendant; Admitting Provider Internal Medicine; Emergency Provider Student in an Organized Health Care Education/Training Program; Visit Provider Internal Medicine
DX: B37.49 Other urogenital candidiasis (principal); G93.41 Metabolic encephalopathy; N17.9 Acute kidney failure, unspecified; E87.1 Hypo-osmolality and hyponatremia; R79.89 Other specified abnormal findings of blood chemistry; S92.502A Displaced unspecified fracture of left lesser toe(s), initial encounter for closed fracture; I25.10 Atherosclerotic heart disease of native coronary artery without angina pectoris; I10 Essential (primary) hypertension; E11.65 Type 2 diabetes mellitus with hyperglycemia; F03.90 Unspecified dementia, unspecified severity, without behavioral disturbance, psychotic disturbance, mood disturbance, and anxiety; R62.7 Adult failure to thrive; R32 Unspecified urinary incontinence; R53.1 Weakness; Z68.28 Body mass index [BMI] 28.0-28.9, adult; Z96.653 Presence of artificial knee joint, bilateral; F17.210 Nicotine dependence, cigarettes, uncomplicated; Z79.899 Other long term (current) drug therapy; Z79.4 Long term (current) use of insulin; Z79.84 Long term (current) use of oral hypoglycemic drugs; Z79.82 Long term (current) use of aspirin; Z95.1 Presence of aortocoronary bypass graft; W06.XXXA Fall from bed, initial encounter; Z59.12 Inadequate housing utilities; Z59.89 Other problems related to housing and economic circumstances; Z79.02 Long term (current) use of antithrombotics/antiplatelets; S80.812A Abrasion, left lower leg, initial encounter; S80.811A Abrasion, right lower leg, initial encounter; S81.802A Unspecified open wound, left lower leg, initial encounter; E86.0 Dehydration; Z91.81 History of falling; R46.0 Very low level of personal hygiene; E78.5 Hyperlipidemia, unspecified; F19.11 Other psychoactive substance abuse, in remission; N28.1 Cyst of kidney, acquired; Z87.440 Personal history of urinary (tract) infections
CPT/HCPCS: 36415; 51702; 70450; 71045; 72125; 73502; 73630; 74170; 76775; 80048; 80053; 81001; 82009; 82550; 82553; 82948; 83036; 83605; 83874; 84484; 85025; 85610; 85730; 87086; 87106; 93005; 96361; 96365; 96366; 96376; 97161; 97165; 97530; 97535; 99285; Q3014; Q9967

== ENCOUNTER 2023-08-17 22:23 | Emergency (ER) | payer MEDICARE, SELFPAY ==
[2023-08-17 22:24] VITALS: BP 149/65; PULSE 88; RESP 20; TEMP 36.7; O2SAT 99; BMI 29.1
--- NOTE | 2023-08-17 22:58 | CT_ITS ---
The [address] [address] Patient Name: EMILY HARO MRN: [id number] date: 1955 Sex: F Assigned Patient Location: ER Current Patient Location: ER Accession/Order Number: [id number] Exam Date: 08/17/2023 23:16 Report Date: 08/17/2023 23:35 At the request of: MISHA AGUSTIN Procedure: CT head/brain wo con EXAM: CT head/brain wo con HISTORY: fall, head injury COMPARISON: Head CT 07/28/2023 TECHNIQUE: Unenhanced axial CT of the head was performed with coronal and sagittal reformats provided. FINDINGS: Sequelae of chronic microvascular ischemic disease. No hydrocephalus, midline shift, extra-axial fluid collection or intracranial hemorrhage. Incidental note of intracranial vascular calcification. Mastoids and the middle ears are clear. Paranasal sinuses are clear. Orbits are intact. Calvarium, skull base and osseous structures of the imaged face are intact. Occipital scalp hematoma. CT/CT head/brain wo con IMPRESSION: Occipital scalp hematoma without acute intracranial process. Sequelae of chronic microvascular ischemic disease. Electronically authenticated by: MATTHEW LOPEZ Date: 08/17/2023 23:35
--- NOTE | 2023-08-17 22:58 | XR_ITS ---
The [address] [address] Patient Name: EMILY HARO MRN: [id number] date: 1955 Sex: F Assigned Patient Location: ER Current Patient Location: ER Accession/Order Number: [id number] Exam Date: 08/17/2023 23:05 Report Date: 08/17/2023 23:49 At the request of: MISHA AGUSTIN Procedure: XR hip RT 2V w/ pelvis EXAM: XR hip RT 2V w/ pelvis HISTORY: fall, right hip pain COMPARISON: Right hip radiographs 07/28/2023 TECHNIQUE: 3 views right hip FINDINGS: Chronic displaced fracture of the right greater trochanter appearing stable from prior. No acute fracture is identified. Moderate degenerative change of the right hip. Incidental note of vascular calcification. Degenerative changes of the lumbosacral spine and the sacroiliac joints. XR/XR hip RT 2V w/ pelvis IMPRESSION: Chronic fracture deformity of the right greater trochanter without acute osseous abnormality right hip. Electronically authenticated by: MATTHEW LOPEZ Date: 08/17/2023 23:49
--- NOTE | 2023-08-17 23:45 | ED.FALL1 ---
HPI - Fall General Chief Complaint: Fall Stated Complaint: fall Time Seen by Provider: 08/17/23 22:30 Source: other Source comment: [facility] Mode of arrival: ambulance Limitations: no limitations History of Present Illness HPI Narrative: Patient rolled out of bed and landed on the floor, striking the right side of her head and injuring her right hip and right lower back. This occurred this evening at [facility] where the patient is currently rehabbing for fracture of the right greater trochanter. She denied LOC and is without seizure activity or vomiting since the fall. She has a hematoma to the right side of her head, per EMS. She is able to move all of her extremities but it is very painful to move the right hip. She takes blood thinners daily. Related Data Home Medications Medication Instructions Recorded Confirmed clopidogrel 75 mg tablet 75 mg PO DAILY 04/06/23 07/29/23 gabapentin 300 mg capsule 300 mg PO Q8H 04/06/23 04/25/23 insulin glargine 100 unit/mL (3 30 unit subcut .qd 04/06/23 07/29/23 mL) subcutaneous pen (Lantus Solostar U-100 Insulin) lisinopril 2.5 mg tablet 2.5 mg PO DAILY 04/06/23 04/25/23 omeprazole 40 mg capsule,delayed 40 mg PO DAILY 04/06/23 04/25/23 release sitagliptin phosphate 100 mg 100 mg PO DAILY 04/06/23 07/29/23 tablet (Januvia) amlodipine 10 mg tablet 10 mg PO DAILY 07/29/23 07/29/23 aspirin 81 mg tablet,delayed 81 mg PO DAILY 07/29/23 07/29/23 release (Birgit Low Dose Aspirin) atorvastatin 40 mg tablet (Lipitor) 40 mg PO QPM 07/29/23 07/29/23 dapagliflozin propanediol 10 mg 10 mg PO DAILY 07/29/23 07/29/23 tablet (Farxiga) dulaglutide 0.75 mg/0.5 mL 0.75 mg subcut QWEEK 07/29/23 07/29/23 subcutaneous pen injector (Trulicity) metformin 1,000 mg tablet 1,000 mg PO BID 07/29/23 07/29/23 metoprolol succinate 50 mg 50 mg PO DAILY 11/06/23 11/06/23 tablet,extended release 24 hr (Toprol XL) spironolactone 25 mg tablet 12.5 mg PO DAILY 07/29/23 07/29/23 (Aldactone) Previous Rx's Medication Instructions Recorded fluconazole 200 mg tablet 400 mg PO DAILY 11 days #22 tabs 08/01/23 Allergies Allergy/AdvReac Type Severity Reaction Status Date / Time adhesive tape AdvReac Mild Verified 08/17/23 22:30 hydrocodone [From Vicodin] AdvReac Mild Nausea Verified 08/17/23 22:30 [facility] Medical History (Updated 08/18/23 @ 00:06 by Scott Agustin) Adult failure to thrive ?R62.7 - Adult failure to thrive (ICD-10) CAD (coronary artery disease) ?I25.10 - Atherosclerotic heart disease of [place] coronary artery without angina pectoris (ICD-10) Dehydration ?E86.0 - Dehydration (ICD-10) Dementia ?F03.90 - Unspecified dementia, unspecified severity, without behavioral disturbance, psychotic disturbance, mood disturbance, and anxiety (ICD-10) Elevated troponin ?R77.8 - Other specified abnormalities of plasma proteins (ICD-10) HLD (hyperlipidemia) ?E78.5 - Hyperlipidemia, unspecified (ICD-10) Hypertension ?I10 - Essential (primary) hypertension (ICD-10) Hypokalemia ?E87.6 - Hypokalemia (ICD-10) Type 2 diabetes mellitus with insulin therapy ?E11.9 - Type 2 diabetes mellitus without complications (ICD-10) ?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 (ICD-10) Surgical History (Updated 07/28/23 @ 23:58 by Carlin Saenz) History of bilateral knee arthroplasty ?Z96.653 - Presence of artificial knee joint, bilateral (ICD-10) Hx of CABG ?Z95.1 - Presence of aortocoronary bypass graft (ICD-10) Family History (Updated 07/29/23 @ 00:00 by Carlin Saenz) Father Family history of CHF (congestive heart failure) Family history of cancer Family history of diabetes mellitus Family history of hypertension Mother Family history of CHF (congestive heart failure) Family history of cancer Family history of diabetes mellitus Family history of hypertension Family history of myocardial infarction Family history of stroke Social History (Updated 07/29/23 @ 00:04 by Carlin Saenz) Within the past year, how often did you have a drink containing alcohol: never Score interpretation: A score less than 3 is consistent with normal alcohol consumption. 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 Known occupational exposures/hazards: No Highest level of school completed/degree received: Associate degree: academic program Do you want help with school or training: No Are you now , , , , never or living with a partner: In a typical week, how many times do you talk on the telephone with family, friends, or neighbors: 3 or more times per week How often do you get together with friends or relatives: twice per week How often do you attend christianity or moravian services: 4 or more times per year Do you belong to any clubs or organizations such as christianity groups unions, [employer] or athletic groups, or school groups: yes Total score: 4 Score interpretation: A score of greater than or equal to 2 indicates the lowest level of social isolation. Little interest or pleasure in doing things: not at all Feeling down, depressed, or hopeless: not at all Feel stressed/tense/nervous/anxious/difficulty sleeping: not at all Due to disability, difficulty making decisions: No Do you think of yourself as: straight/heterosexual Gender Identity: female Exam Narrative Exam Narrative: Nurses note and vital signs reviewed and patient is not hypoxic. afebrile General: The patient appears well and in no apparent distress. Patient is resting comfortably on cart. GCS = 15. Skin: Warm, dry, no pallor noted. Head: hematoma right scalp. No facial injuries Neck: Supple, trachea mid-line. Full ROM and no cervical spinal tenderness. Eyes: PERRLA, EOMI ENT: TMs clear, no hemotympanum detected, no blood in posterior oropharynx Cardiovascular: Regular Rate and Rhythm Respiratory: Patient is in no distress, no accessory muscle use, lungs are clear to auscultation, no wheezing, rales or rhonchi Chest Wall: no tenderness, no flail chest, contusion, abrasion, or signs of trauma. Back: No thoracic or lumbar tenderness to palpation. Soft tissue tenderness right paralumbar soft tissue = mild. Musculoskeletal: Pain with movement of the right hip and with palpation of the medial right hip. no additional sign of long bone fracture in the upper or lower extremities - no right leg shortening, arm or leg abrasions, tenderness or swelling. Pulses at femoral, DP, PT, and popliteal were 2+ bilaterally. GI: Normal bowel sounds, no tenderness to palpation, no masses appreciated. No rebound, guarding, or rigidity noted. 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 Psychiatric: Cooperative Constitutional Vital Signs, click to edit/add: Last Vital Signs Temp 98.1 F 08/17/23 22:24 Pulse 91 H 08/17/23 23:48 Resp 20 08/17/23 23:48 BP 130/77 08/17/23 23:48 Pulse Ox 98 08/17/23 23:48 O2 Del Method Room Air 08/17/23 22:24 Course Vital Signs Vital signs: Vital Signs Temperature 98.1 F 08/17/23 22:24 Pulse Rate 88 08/17/23 22:24 Respiratory Rate 20 08/17/23 22:24 Blood Pressure 149/65 H 08/17/23 22:24 Pulse Oximetry 99 08/17/23 22:24 Oxygen Delivery Method Room Air 08/17/23 22:24 Temperature 98.1 F 08/17/23 22:24 Pulse Rate 91 H 08/17/23 23:48 Respiratory Rate 20 08/17/23 23:48 Blood Pressure 130/77 08/17/23 23:48 Pulse Oximetry 98 08/17/23 23:48 Oxygen Delivery Method Room Air 08/17/23 22:24 MDM - Fall MDM Narrative Medical decision making narrative: after being examined, the patient sent for CT scanning of the brain as well as x-rays of the right hip and pelvis. Patient given tylenol for pain. No acute fractures, ICH or other worrisome problems identified. She has a chronic fracture of the right greater trochanter that is unchanged tonight. She was discharged back to the [facility]. Imaging Data CT scan - head: Radiologist's impression: Patient Name: EMILY HARO MRN: [id number] date: 1955 Sex: F Assigned Patient Location: ER Current Patient Location: ER Accession/Order Number: [id number] Exam Date: 08/17/2023 23:16 Report Date: 08/17/2023 23:35 At the request of: SCOTT AGUSTIN Procedure: CT head/brain wo con EXAM: CT head/brain wo con HISTORY: fall, head injury COMPARISON: Head CT 07/28/2023 TECHNIQUE: Unenhanced axial CT of the head was performed with coronal and sagittal reformats provided. FINDINGS: Sequelae of chronic microvascular ischemic disease. No hydrocephalus, midline shift, extra-axial fluid collection or intracranial hemorrhage. Incidental note of intracranial vascular calcification. Mastoids and the middle ears are clear. Paranasal sinuses are clear. Orbits are intact. Calvarium, skull base and osseous structures of the imaged face are intact. Occipital scalp hematoma. IMPRESSION: Occipital scalp hematoma without acute intracranial process. Sequelae of chronic microvascular ischemic disease. Electronically authenticated by: MATTHEW OLPEZ Date: 08/17/2023 23:35 xr hip: Radiologist's impression: Patient Name: EMILY HARO MRN: [id number] date: 1955 Sex: F Assigned Patient Location: ER Current Patient Location: ER Accession/Order Number: [id number] Exam Date: 08/17/2023 23:05 Report Date: 08/17/2023 23:49 At the request of: SCOTT AGUSTIN Procedure: XR hip RT 2V w/ pelvis EXAM: XR hip RT 2V w/ pelvis HISTORY: fall, right hip pain COMPARISON: Right hip radiographs 07/28/2023 TECHNIQUE: 3 views right hip FINDINGS: Chronic displaced fracture of the right greater trochanter appearing stable from prior. No acute fracture is identified. Moderate degenerative change of the right hip. Incidental note of vascular calcification. Degenerative changes of the lumbosacral spine and the sacroiliac joints. IMPRESSION: Chronic fracture deformity of the right greater trochanter without acute osseous abnormality right hip. Electronically authenticated by: MATTHEW LOPEZ Date: 08/17/2023 23:49 Discharge Plan Discharge Chief Complaint: Fall Clinical Impression: Contusion of hip, Hematoma of scalp, Head injury Patient Disposition: Home, Self-Care Time of Disposition Decision: 00:05 Prescriptions / Home Meds: No Action amlodipine 10 mg tablet 10 mg PO DAILY Farxiga 10 mg tablet 10 mg PO DAILY atorvastatin [Lipitor] 40 mg tablet 40 mg PO QPM metformin 1,000 mg tablet 1,000 mg PO BID metoprolol succinate [Toprol XL] 50 mg tablet extended release 24 hr 50 mg PO DAILY spironolactone [Aldactone] 25 mg tablet 12.5 mg PO DAILY aspirin [Birgit Low Dose Aspirin] 81 mg tablet,delayed release (DR/EC) 81 mg PO DAILY Trulicity 0.75 mg/0.5 mL pen injector 0.75 mg subcut QWEEK Patient Comments: on mondays fluconazole 200 mg tablet 400 mg PO DAILY 11 Days Qty: 22 0RF gabapentin 300 mg capsule 300 mg PO Q8H insulin glargine [Lantus Solostar U-100 Insulin] 100 unit/mL (3 mL) insulin pen 30 unit SUBCUT .qd Rx Instructions: PER RETAIL FILL HX - LAST FILLED 02/03/23 FOR A 62 DAY SUPPLY lisinopril 2.5 mg tablet 2.5 mg PO DAILY Rx Instructions: PER RETAIL FILL HX - LAST FILLED 01/03/23 #90 FOR A 90 DAY SUPPLY 75% ADHERENCE RATE clopidogrel 75 mg tablet 75 mg PO DAILY omeprazole 40 mg capsule,delayed release(DR/EC) 40 mg PO DAILY Rx Instructions: PER RETAIL FILL HX - LAST FILLED 01/03/23 #90 FOR A 90 DAY SUPPLY 73% ADHERENCE RATE Januvia 100 mg tablet 100 mg PO DAILY Rx Instructions: PER RETAIL FILL HX - LAST FILLED 02/11/23 #90 FOR A 90 DAY SUPPLY 65% ADHERENCE RATE Instructions: Head Injury (ED), Contusion in Adults (ED), Scalp Contusion in Adults (ED) Stand Alone Forms: Portal Instructions Referrals: Physician,Non-Staff, MD [Primary Care Provider] - 1 week
[2023-08-17 23:48] VITALS: BP 130/77; PULSE 91; RESP 20; O2SAT 98
[2023-08-17] MEDS: ACETAMINOPHEN 500 MG TABLET 1000 MG PO (23:57)
--- NOTE | 2023-08-18 00:11 | PC.NURSE ---
Attempted to call residential with report but there was no answer
--- NOTE | 2023-08-18 00:17 | PC.NURSE ---
Repport to [place] at [facility]
== END 2023-08-18 01:25 | disposition home or self-care (01) ==
PROVIDERS: Emergency Provider Emergency Medicine
DX: S70.01XA Contusion of right hip, initial encounter (principal); S09.90XA Unspecified injury of head, initial encounter; S00.03XA Contusion of scalp, initial encounter; W06.XXXA Fall from bed, initial encounter; Z79.899 Other long term (current) drug therapy; S72.112D Displaced fracture of greater trochanter of left femur, subsequent encounter for closed fracture with routine healing; I25.10 Atherosclerotic heart disease of native coronary artery without angina pectoris; F03.90 Unspecified dementia, unspecified severity, without behavioral disturbance, psychotic disturbance, mood disturbance, and anxiety; E78.5 Hyperlipidemia, unspecified; I10 Essential (primary) hypertension; E11.9 Type 2 diabetes mellitus without complications; Z79.4 Long term (current) use of insulin; Z96.653 Presence of artificial knee joint, bilateral; Z95.1 Presence of aortocoronary bypass graft; F17.210 Nicotine dependence, cigarettes, uncomplicated; Z79.82 Long term (current) use of aspirin; Z79.84 Long term (current) use of oral hypoglycemic drugs
CPT/HCPCS: 70450; 73502; 99284

== ENCOUNTER 2023-11-05 09:45 | Inpatient (IN) | payer MEDICARE, SELFPAY ==
[2023-11-05 09:48] VITALS: BP 139/69; PULSE 67; RESP 16; TEMP 36.4; O2SAT 97; BMI 33.3
--- OUTSIDE RECORDS SUMMARY | 2023-11-05 10:17 | XMS_ITS | CCD ---
Author Name Unknown Address [address] [facility] [address] [place] [id number] Organization [facility] Care Team Providers Care Manager Media Name Role Phone CAMERON LAURENT Unavailable Unavailable CAMERON LAURENT Unavailable Unavailable PETER SANTOS Unavailable Unavailable Peter Santos Primary Care Provider UnavailLatasha Rosario Attending Provider Unavailable YRIS QUAN Attending Unavailable PETER SANTOS Primary Care Unavailable REINALDO MARLOW Referring Unavailable FABIAN DOS SANTOS Admitting Unavailable ADELINAALFRED Gavin Admitting Unavailable ALFRED SAHU Attending Unavailable DR PETER SANTOS Primary Care Unavailable DR PETER SANTOS Primary Care Unavailable MARCELA, DR VICK Tan Consulting Unavailable HOY ., DR TARIQ Admitting Unavailable HOY ., DR TARIQ Attending Unavailable HOY ., DR TARIQ Consulting Unavailable JACKSON ., DR GEORGETTE Suarez Consulting Unavailable ERNIE NIELSEN Consulting Unavailable SHAIKH Magy DUMONT Consulting Unavailable MARYSOL VALDOVINOS Consulting Unavailable ROWAN ., YAMILKA Attending Unavailable ROWAN ., YAMILKA Admitting Unavailable JACKSON ., DR GEORGETTE Suarez Consulting Unavailable DR PETER SANTOS Primary Care Unavailable VICKEY, DR MITZY Tan Consulting Unavailable LORENZO RANGEL Consulting Unavailable ROWAN ., YAMILKA Consulting Unavailable VICKEY, DR MITZY Tan Consulting Unavailable CECILIA CASTRO Attending Unavailable ESCOBAR Porter, CECILIA Admitting Unavailable DR PETER SANTOS Primary Care Unavailable CECILIA CASTRO Consulting Unavailable JORDAN ISAAC Consulting Unavailable DR PETER SANTOS Primary Care Unavailable REINALDO MARLOW Admitting Unavailable REINALDO MARLOW Attending Unavailable REINALDO MARLOW Consulting Unavailable YAZAN FABIAN Consulting Unavailable DR PETER SANTOS Primary Care Unavailable MARCELA, DR VICK Tan Admitting Unavailable MARCELA, DR VICK Tan Attending Unavailable MARCELA, DR VICK Tan Consulting Unavailable REINALDO MARLOW Attending Unavailable REINALDO MARLOW Admitting Unavailable REINALDO MARLOW Consulting Unavailable DR PETER SANTOS Primary Care Unavailable DOTSON, FABIOLA Consulting Unavailable DILEEP WU Consulting Unavailable MARIA D EVANS Consulting Unavailable MARKER ., DR SIMON Consulting Unavailable MARKER ., DR SIMON Attending Unavailable MARKER ., DR SIMON Admitting Unavailable SANTOS, DR SHAH Primary Care Unavailable EDY GARSIA Consulting Unavailable ELIAN GAMEZ Consulting Unavailable NEFKARINA, LILLIE Consulting Unavailable DERERNESTO, YAZAN Consulting Unavailable ESCOBAR ., CECILIA Attending Unavailable ESCOBAR ., CECILIA Admitting Unavailable JUDE, DR SHAH Primary Care Unavailable ESCOBAR ., CECILIA Consulting Unavailable ERNIE NIELSEN Consulting Unavailable COATJOSEPH Gavin Consulting Unavailable SANTOS, DR SHAH Primary Care Unavailable HEMMER, DR JAROCHO Fagan Admitting Unavailable HEMMER, DR JAROCHO Fagan Attending Unavailable ADELINA, ALFRED Consulting Unavailable JUDE, DR SHAH Primary Care Unavailable ADELINAALFRED Gavin Attending Unavailable ADELINA, ALFRED Admitting Unavailable SANTOS, DR SHAH Primary Care Unavailable REINALDO MARLOW Consulting Unavailable FAWWAD, SANCHEZ H Admitting Unavailable FAWPHYLLISDSHAIKH H Attending Unavailable MAURI, FABIOLA Consulting Unavailable NIELSENERNIE Gavin Consulting Unavailable FAWWAD, SANCHEZ H Consulting Unavailable NADERER, DR IGGY Haji Consulting Unavailable NADERER, DR IGGY Haji Attending Unavailable NADERER, DR IGGY Haji Admitting Unavailable JUDE, DR SHAH Primary Care Unavailable LEDEZMA, PATRICIA Consulting Unavailable DIAB ., JUAN ALBERTO Consulting Unavailable Sonya Posada CNP Attending Unavailable SONYA POSADA Referring Unavailable PETER SANTOS Primary Care Unavailable Sonya Posada CNP Primary Care Provider Carlo GENERAL MANAGER IN TRAINING - PIECE PRESSERSonya Primary Care Provider Amanda BRAKE REPAIRER RAILROAD-BC Angy Dailey Attending Provider Angy Patel Attending Unavailable Angy Patel Admitting Unavailable NO FAMILY, PHYSICIAN Primary Care Unavailable ALFRED SAHU Attending Unavailable CHANDNI GREEN Referring Unavailable IRINEO, DANIEL HALL Admitting Unavailab le HORANI, YRIS Attending Unavailable ELGABY KAUFFMAN Attending Unavailable IRINEO, DANIEL HALL Referring Unavailab le GANGWANI, DANIEL HALL Referring Unavailab le GANGWANI, DANIEL HALL Referring Unavailab le HORANI, YRIS Referring Unavailable HORANI, YRIS Referring Unavailable Unavailable Unavailable Unavailable Allergies Allergy Classification Reported Allergen(s) Allergy Type Date of Onset Reaction(s) Facility (7 sources) Acetaminophen / HYDROcodone Drug Allergy 3 Nausea [facility] Rep[facility] (2 sources) Adhesive agent; Translations: [ADHESIVE] Propensity to adverse reactions (disorder) 7 [facility] (1 source) PLASTIC BANDAGE TAMARA Drug allergy (disorder) 9 [facility] (2 sources) Adhesive bandage Drug allergy (disorder) 3 [facility] Repository (4 sources) Adhesive Tape Allergy to substance 3 [facility] (4 sources) Bandaids Allergy to substance 3 [facility] (2 sources) Acetaminophen / HYDROcodone; Translations: [HYDROCODONE-ACET AMINOPHEN] Drug Allergy 7 Nausea [facility] Vomiting [facility] [employer] (1 source) HYDROcodone; Translations: [HYDROCODONE BITARTRATE] Drug Allergy 1 [facility] Rep[facility] NEGATED: Highlighted row has been ruled out! (1 source) Other Propensity to adverse reactions 7 [facility] [employer] Medications Current Medications Medication Drug Class(es) Dates Sig (Normalized) Sig (Original) acetaminophen 325 mg / oxyCODONE hydrochloride 5 mg oral tablet (1 source) Opioid Agonist take 1 tablet by mouth every six hours as needed for pain oxyCODONE-acetaminop hen (PERCOCET) 5-325 MG per tablet Take 1 tablet by mouth every 6 hours as needed for Pain . 0 Active albuterol 0.83 mg/ml inhalation solution (2 sources) beta2-Adrenergic Agonist albuterol (PROVENTIL) (2.5 MG/3ML) 0.083% nebulizer solution Take 2.5 mg by nebulization every 6 hours as needed for Wheezing or Shortness of Breath 0 Active take 2 puff(s) by in halation every six hours as needed for wheezing albuterol sulfate HFA 108 (90 Base) MCG/ACT inhaler Inhale 2 puffs into the lungs every 6 hours as needed for Wheezing or Shortness of Breath 0 Active ALPRAZolam 0.5 mg oral tablet (1 source) Benzodiazepine take 1 tablet by mouth twice daily as needed for anxiety ALPRAZolam (XANAX) 0.5 MG tablet Take 0.5 mg by mouth 2 times daily as needed for Sleep or Anxiety 0 Active amLODIPine 10 mg oral tablet (2 sources) Dihydropyridine Calcium Channel Carlos Start: 3 End: 3 amLODIPine Besylate 10 MG Oral Tablet 07/18/2023 Provider: Soco Alcantar CNP aspirin 81 mg delayed release oral tablet (3 sources) Platelet Aggregation Inhibitor, Nonsteroidal Anti-inflammatory Drug Start: 3 End: 3 Aspir-Low 81 MG Oral Tablet Delayed Release 07/18/2023 Provider: Soco Alcantar CNP take 1 tablet by mouth once dionicio y aspirin 325 MG tablet Take 325 mg by mouth daily 0 Active atorvastatin 40 mg oral tablet (6 sources) HMG-CoA Reductase Inhibitor Start: 07-18-2023 End: 07-18-2023 Atorvastatin Calcium 40 MG Oral Tablet 07/18/2023 Provider: Soco Alcantar CNP Start: 02-11-2023 End: 07-18-2023 Atorvastatin Calcium 80 MG O ral Tablet 02/11/2023 - 07/18/2023 Provider: clopidogrel 75 mg oral tablet (5 sources) P2Y12 Platelet Inhibitor Start: 01-03-2023 End: 07-18-2023 Clopidogrel Bisulfate 75 MG Oral Tablet 07/18/2023 Provider: Soco Alcantar CNP dapagliflozin 10 mg oral tablet (1 source) Sodium-Glucose Cotransporter 2 Inhibitor Start: 07-18-2023 Farxiga 10 MG Oral Tablet 07/18/2023 Provider: 0.5 ml dulaglutide 1.5 mg/ml auto-injector (1 source) GLP-1 Receptor Agonist Start: 06-25-2023 Trulicity 0.75 MG/0.5ML Subcutaneous Solution Pen-injector 06/25/2023 Provider: furosemide 20 mg oral tablet (1 source) Loop Diuretic take 1 tablet by mouth once daily furosemide (LASIX) 20 MG tablet Take 20 mg by mouth daily 0 Active 3 ml insulin glargine 100 unt/ml pen injector (4 sources) Insulin Analog Start: 02-03-2023 Lantus SoloStar 100 UNIT/ML Subcutaneous Solution Pen-injector 02/03/2023 Provider: insulin isophane, human 100 unt/ml injectable suspension (1 source) insulin NPH (HUMULIN N) 100 UNIT/ML injection vial Inject 52 Units into the skin 2 times daily 0 Active insulin, regular, human 100 unt/ml injectable solution (1 source) Insulin insulin regular (HUMULIN R;NOVOLIN R) 100 UNIT/ML injection Inject 1 Units into the skin See Admin Instructions Sliding scale 0 Active loperamide hydrochloride 2 mg oral capsule (1 source) Opioid Agonist Start: 07-18-2023 Loperamide HCl 2 MG Oral Capsule 07/18/2023 Provider: metFORMIN hydrochloride 1000 mg oral tablet (4 sources) Biguanide Start: 08-10-2022 metFORMIN HCl 1000 MG Oral Tablet 08/10/2022 Provider: 24 hr metoprolol succinate 50 mg extended release oral tablet (7 sources) beta-Adrenergic Carlos Start: 07-18-2023 End: 07-18-2023 take 1 tablet by mouth every twenty-four hours Metoprolol Succinate ER 50 MG Oral Tablet Extended Release 24 Hour 07/18/2023 Provider: Soco Alcantar CNP Start: 01-03-2023 End: 07-18-2023 Metoprolol Tartrate 25 MG Or al Tablet 01/03/2023 - 07/18/2023 Provider: Pain Reliever 325 MG Oral Tablet (1 source) Start: 07-18-2023 Pain Reliever 325 MG Oral Tablet 07/18/2023 Provider: simvastatin 80 mg oral tablet (1 source) HMG-CoA Reductase Inhibitor take 1 tablet by mouth once daily simvastatin (ZOCOR) 80 MG tablet Take 80 mg by mouth nightly 0 Active spironolactone 25 mg oral tablet (2 sources) Aldosterone Antagonist Start: 07-18-2023 End: 07-18-2023 Spironolactone 25 MG Oral Tablet 07/18/2023 Provider: Soco Alcantar CNP tiZANidine 4 mg oral tablet (1 source) Central alpha-2 Adrenergic Agonist take 1 tablet by mouth once daily tiZANidine (ZANAFLEX) 4 MG tablet Take 4 mg by mouth nightly 0 Active Completed/Discontinued Medications Medication Drug Class(es) Dates Sig (Normalized) Sig (Original) citalopram 40 mg oral tablet (5 sources) Serotonin Reuptake Inhibitor Start: 12-11-2022 End: 07-18-2023 Citalopram Hydrobromide 40 MG Oral Tablet 12/11/2022 - 07/18/2023 Provider: take 1 tablet by mouth once dionicio y citalopram (CELEXA) 20 MG tablet Take 20 mg by mouth daily 0 Active gabapentin 300 mg oral capsule (5 sources) Anti-epileptic Agent Start: 02-11-2023 End: 07-18-2023 Gabapentin 300 MG Oral Capsule 02/11/2023 - 07/18/2023 Provider: lisinopril 2.5 mg oral tablet (5 sources) Angiotensin Converting Enzyme Inhibitor Start: 01-03-2023 End: 07-18-2023 Lisinopril 2.5 MG Oral Tablet 01/03/2023 - 07/18/2023 Provider: take 1 tablet by mouth once dionicio y lisinopril (PRINIVIL;ZESTRIL) 10 MG tablet Take 10 mg by mouth daily 0 Active nitrofurantoin, macrocrystals 25 mg / nitrofurantoin, monohydrate 75 mg oral capsule (4 sources) Nitrofuran Antibacterial Start: 03-11-2023 End: 07-18-2023 Nitrofurantoin Monohyd Macro 100 MG Oral Capsule 03/11/2023 - 07/18/2023 Provider: omeprazole 40 mg delayed release oral capsule (4 sources) Proton Pump Inhibitor Start: 01-03-2023 End: 07-18-2023 Omeprazole 40 MG Oral Capsule Delayed Release 01/03/2023 - 07/18/2023 Provider: SITagliptin 100 mg oral tablet (4 sources) Dipeptidyl Peptidase 4 Inhibitor Start: 02-11-2023 End: 07-18-2023 Januvia 100 MG Oral Tablet 02/11/2023 - 07/18/2023 Provider: Problems Active Problems Problem Classification Problem Date Documented Date Episodic/Chronic Acute myocardial infarction (2 sources) Non-ST elevation (NSTEMI) myocardial infarction; Translations: [Non-ST elevation (NSTEMI) myocardial infarction] Onset: 04-26-2023 Chronic Anxiety disorders (8 sources) Anxiety disorder; Translations: [Anxiety disorder, unspecified] Onset: 03-07-2023 03-07-2023 Chronic Cardiac dysrhythmias (2 sources) Tachycardia, unspecified; Translations: [Tachycardia, unspecified] Onset: 03-07-2023 Episodic Chronic obstructive pulmonary disease and bronchiectasis (3 sources) Chronic obstructive pulmonary disease, unspecified; Translations: [Chronic obstructive lung disease] Onset: 07-26-2020 Resolved: 07-26-2020 03-27-2017 Chronic Conditions associated with dizziness or vertigo (1 source) Dizziness and giddiness; Translations: [DIZZINESS AND GIDDINESS] Onset: 11-15-2022 Episodic Congestive heart failure; nonhypertensive (4 sources) Chronic systolic (congestive) heart failure; Translations: [Acute on chronic systolic (congestive) heart failure] Onset: 04-26-2023 Chronic Coronary atherosclerosis and other heart disease (5 sources) Atherosclerotic heart disease of [place] coronary artery without angina pectoris; Translations: [Coronary arteriosclerosis] Onset: 07-18-2022 Chronic Diabetes mellitus with complications (19 sources) Type 2 diabetes mellitus with hypoglycemia without coma; Translations: [Type 2 diabetes mellitus with hyperglycemia] Onset: 02-02-2022 Chronic Diabetes mellitus without complication (8 sources) Type 2 diabetes mellitus without complications; Translations: [Type 1 diabetes mellitus without complications] Onset: 02-22-2022 03-07-2023 Chronic Disorders of lipid metabolism (2 sources) Hyperlipidemia, unspecified; Translations: [Hyperlipidemia] Onset: 11-15-2022 03-27-2017 Chronic E Codes: Adverse effects of medical drugs (1 source) Adverse effect of insulin and oral hypoglycemic [antidiabetic] drugs, initial encounter; Translations: [ADVERS EFF INSULIN ORAL HG RX INIT] Onset: 01-08-2023 Episodic E Codes: Fall (3 sources) Fall on same level from slipping, tripping and stumbling with subsequent striking against unspecified object, initial encounter; Translations: [Unspecified fall, initial encounter] Onset: 08-26-2022 Episodic Essential hypertension (7 sources) Essential (primary) hypertension; Translations: [Essential hypertension] Onset: 01-08-2023 03-07-2023 Chronic Fluid and electrolyte disorders (2 sources) Dehydration; Translations: [Hyperkalemia] Onset: 02-02-2022 Episodic Headache; including migraine (3 sources) Headache; including migraine; Translations: [HEADACHE UNSPECIFIED] Onset: 08-23-2022 Malaise and fatigue (3 sources) Weakness; Translations: [WEAKNESS] Onset: 11-08-2022 Episodic Mood disorders (9 sources) Mild recurrent major depression; Translations: [Major depressive disorder, recurrent, mild] Onset: 03-07-2023 03-07-2023 Chronic Nutritional deficiencies (2 sources) Vitamin D deficiency, unspecified; Translations: [Moderate protein-calorie malnutrition] Onset: 11-15-2022 Chronic Other aftercare (1 source) penitentiary (current) use of insulin; Translations: [CORRECTION CURRENT USE OF INSULIN] Onset: 01-14-2023 Episodic Other aftercare (1 source) Other terminal operations supervisor (current) drug therapy; Translations: [OTH CHIEF LENDING OFFICER CURRENT DRUG THERAPY] Onset: 01-14-2023 Episodic Other aftercare (1 source) penitentiary (current) use of aspirin; Translations: [CORRECTION CURRENT USE OF ASPIRIN] Onset: 11-15-2022 Episodic Other aftercare (1 source) penitentiary (current) use of oral hypoglycemic drugs; Translations: [CHIEF LENDING OFFICER USE ORAL HYPOGLYCEMIC DX] Onset: 11-15-2022 Episodic Other connective tissue disease (1 source) Muscle weakness (generalized); Translations: [MUSCLE WEAKNESS GENERALIZED] Onset: 11-15-2022 Episodic Other connective tissue disease (1 source) Neuropathic pain; Translations: [Neuralgia and neuritis, unspecified] 03-27-2017 Episodic Other hematologic conditions (1 source) Other specified abnormalities of plasma proteins; Translations: [OTH SPEC ABNORM PLASMA PROTEINS] Onset: 11-15-2022 Episodic Other injuries and conditions due to external causes (1 source) History of falling; Translations: [HISTORY OF FALLING] Onset: 11-15-2022 Episodic Other nervous system disorders (1 source) Metabolic encephalopathy; Translations: [METABOLIC ENCEPHALOPATHY] Onset: 05-16-2022 Chronic Other non-traumatic joint disorders (3 sources) Pain in left wrist; Translations: [PAIN IN LEFT WRIST] Onset: 01-10-2023 Episodic Other nutritional; endocrine; and metabolic disorders (1 source) Hypomagnesemia; Translations: [HYPOMAGNESEMIA] Onset: 01-08-2023 Chronic Other nutritional; endocrine; and metabolic disorders (1 source) Body mass index (BMI) 31.0-31.9, adult; Translations: [BODY MASS INDEX BMI 31.0-31.9 ADULT] Onset: 11-15-2022 Chronic Other nutritional; endocrine; and metabolic disorders (5 sources) Finding of body mass index; Translations: [Body mass index (observable entity)] Onset: 03-07-2023 Chronic Other upper respiratory disease (1 source) Epistaxis; Translations: [EPISTAXIS] Onset: 01-14-2023 Episodic Screening and history of mental health and substance abuse codes (1 source) Personal history of nicotine dependence; Translations: [PERSONAL HISTORY OF NICOTINE DEPEND] Onset: 11-15-2022 Episodic Sprains and strains (1 source) Unspecified sprain of left wrist, initial encounter; Translations: [UNSPECIFIED SPRAIN LT WRIST INITIAL] Onset: 01-14-2023 Episodic Substance-related disorders (10 sources) Nicotine dependence, cigarettes, uncomplicated; Translations: [Tobacco dependence caused by cigarettes] Onset: 01-08-2023 03-07-2023 Chronic Superficial injury; contusion (6 sources) Abrasion, right knee, initial encounter; Translations: [Contusion of left shoulder, initial encounter] Onset: 08-01-2022 Episodic Unclassified (3 sources) LOW BACK PAIN, UNSPECIFIED; Translations: [LOW BACK PAIN, UNSPECIFIED] Onset: 01-08-2023 Unclassified (1 source) CONTACT W/AND (SUSP) EXPOS COVID-19; Translations: [CONTACT W/AND (SUSP) EXPOS COVID-19] Onset: 01-08-2023 Urinary tract infections (3 sources) Urinary tract infection, site not specified; Translations: [Acute cystitis] Onset: 11-15-2022 Episodic Past or Other Problems Problem Classification Problem Date Documented Da te Episodic/Chronic Coronary atherosclerosis and other heart disease (1 source) Presence of aortocoronary bypass graft; Translations: [PRESENCE AORTOCORONARY BYPASS GRAFT] Onset: 05-16-2022 Episodic Fracture of neck of femur (hip) (3 sources) Fracture of unspecified part of neck of right femur, initial encounter for closed fracture; Translations: [Displaced fracture of greater trochanter of right femur, subsequent encounter for closed fracture with nonunion] Onset: 03-25-2017 03-27-2017 Episodic Genitourinary symptoms and ill-defined conditions (3 sources) Other polyuria; Translations: [OTHER POLYURIA] Onset: 02-01-2022 Episodic Immunizations and screening for infectious disease (7 sources) Encounter for immunization; Translations: [Encounter for screening for other viral diseases] Onset: 01-08-2023 Episodic Other injuries and conditions due to external causes (1 source) Other specified injuries of head, initial encounter; Translations: [OTH SPEC INJURIES HEAD INITIAL ENC] Onset: 08-26-2022 Episodic Other lower respiratory disease (4 sources) Shortness of breath; Translations: [SHORTNESS OF BREATH] Onset: 07-18-2022 Episodic Other non-traumatic joint disorders (3 sources) Pain in right hip; Translations: [PAIN IN RIGHT HIP] Onset: 07-31-2022 Episodic Other screening for suspected conditions (not mental disorders or infectious disease) (7 sources) Encounter for screening for diabetes mellitus; Translations: [Diabetes Risk Test Score] Onset: 03-07-2023 Episodic Residual codes; unclassified (3 sources) Disorientation, unspecified; Translations: [DISORIENTATION UNSPECIFIED] Onset: 05-13-2022 Episodic Residual codes; unclassified (2 sources) Edema; Translations: [Edema] Onset: 07-18-2022 Episodic Respiratory failure; insufficiency; arrest (adult) (1 source) Acute respiratory failure with hypoxia; Translations: [ACUTE RESPIRATORY FAIL W/HYPOXIA] Onset: 02-22-2022 Episodic Septicemia (except in labor) (2 sources) Sepsis, unspecified organism; Translations: [Severe sepsis without septic shock] Onset: 02-22-2022 Episodic Unclassified (1 source) LOW BACK PAIN, UNSPECIFIED; Translations: [LOW BACK PAIN, UNSPECIFIED] Onset: 01-06-2023 Results Test Name Value Interpretation Reference Range Facility Office Visiton 06-12-2023 Follow-up visit [id number] Rylan Blanc 1955 F Date Provider Department Center 06/12/2023 [facility] No family history on file Level of Service:87615 [place] OFFICE/OUTPATIENT ESTABLISHED MOD MDM 30-39 MIN Normal [facility] Basic Metabolic Panelon 04-24 Anion gap [Moles/Vol] 15.7 mmol/L High 6.0-15.0 [facility] Comment on above: Performed By: #### B MP #### [address] Calcium [Mass/Vol] 9.2 mg/dL Normal 8.6-10.3 [facility] Comment on above: Result Comment: PERF ORMED BY: [place] [address] PATHOLOGIST [employer]LECT[employer]ESSOR[employer] II ASSEMBLER WEN LOBO M.D. Performed By: #### B MP #### [address] Chloride [Moles/Vol] 107 mmol/L Normal 98-107 [facility] Comment on above: Performed By: #### B MP #### [address] CO2 [Moles/Vol] 20.2 mmol/L Low 21.0-31.0 [facility] Comment on above: Performed By: #### B MP #### [address] Creatinine [Mass/Vol] 1.02 mg/dL Normal 0.60-1.20 [facility] Comment on above: Performed By: #### B MP #### [place] [address] [place] GFR/1.73 sq M.predicted MDRD (S/P/Bld) [Vol rate/Area] mL/min/{1.73_m2} Normal [facility] Comment on above: Performed By: #### B MP #### [address] Glucose [Mass/Vol] 178 mg/dL High 70-100 [facility] Comment on above: Result Comment: [place] Glucose Reference Range is dependent on time and content of last meal. Glucose of more than 200 mg/dL in a nonstressed, ambulatory subject supports the diagnosis of Diabetes Mellitus. ADA recommended reference range Performed By: #### B MP #### [place] [address] [place] Potassium [Moles/Vol] 4.9 mmol/L Normal 3.5-5.1 [facility] Comment on above: Performed By: #### B MP #### [place] [address] [place] Sodium [Moles/Vol] 138 mmol/L Normal 136-145 [facility] Comment on above: Performed By: #### B MP #### [facility] [address] [place] [address] [place] Urea nitrogen [Mass/Vol] 23 mg/dL Normal 7-25 [facility] Comment on above: Performed By: #### B MP #### [facility] [address] [place] [id number] [place] Calcium [Mass/volume] in Ser um or PlasmaOrdered By: Angy Patel on 05-14-2023 Calcium [Mass/Vol] 9.2 mg/dL 8.6-10.3 [facility] Carbon dioxide, total [Moles /volume] in Serum or PlasmaOrdered By: Angy Patel on 05-14-2023 CO2 [Moles/Vol] 20.2 mmol/L 21.0-31.0 [facility] Chloride [Moles/volume] in S elizabeth or PlasmaOrdered By: Angy Patel on 05-14-2023 Chloride [Moles/Vol] 107 mmol/L 98-107 [facility] Creatinine [Mass/volume] in Serum or PlasmaOrdered By: Angy Patel on 05-14-2023 Creatinine [Mass/Vol] 1.02 mg/dL 0.60-1.20 [facility] Glucose [Mass/volume] in Ser um or PlasmaOrdered By: Angy Patel on 05-14-2023 Glucose [Mass/Vol] 178 mg/dL 70-100 [facility] Comment on above: ADA recommended refe rence rangeRandom Glucose Reference Range is dependent on time and content of last meal. Glucose of more than 200 mg/dL in a nonstressed, ambulatory subject supports the diagnosis of Diabetes Mellitus. No Panel InformationOrdered By: Angy Patel on 05-14-2023 Estimated GFR (CKD-EPI) > 60.0 mL/Min [facility] Creatinine Clearance (Chem N/A [facility] Potassium [Moles/volume] in Serum or PlasmaOrdered By: Angy Patel on 05-14-2023 Potassium [Moles/Vol] 4.9 mmol/L 3.5-5.1 [facility] Serum or plasma anion gap de terminationOrdered By: Angy Patel on 05-14-2023 Anion gap [Moles/Vol] 15.7 mmol/L 6.0-15.0 [facility] Sodium [Moles/volume] in Ser um or PlasmaOrdered By: Angy Patel on 05-14-2023 Sodium [Moles/Vol] 138 mmol/L 136-145 [facility] [facility] Urea nitrogen [Mass/volume] in Serum or PlasmaOrdered By: Angy Patel on 05-14-2023 Urea nitrogen [Mass/Vol] 23 mg/dL 7-25 [facility] 30on 05-06-2023 30 The patient is Moder ately Stable - Low risk of patient condition declining or worsening The patient's goals for the shift include Rest/Comfort The clinical goals for the shift include VSS and Discharge Planning Patient is being discharged [facility]. Attempted to call report but got a voicemail for [place]. Left my name and phone number. Will attempt to call back in 30 minutes. Report was given to [facility] 30 Daily Case Managemen t Update Multidisciplinary rounds have been completed. Barriers to Discharge: Awaiting pre-cert to [facility]. Diet: Dietary Orders (From admission, onward) Start Ordered 05/03/23 1637 Dysphagia III Soft Diet Heart Healthy/HTN, CABG,Stroke, (2gNA, low fat, low cholesterol); Diabetic Female (carb 45g/meal); Ground Meat Diet effective now Question Answer Comment Room Service? No Fat restriction: Heart Healthy/HTN, CABG,Stroke, (2gNA, low fat, low cholesterol) Carbohydrate restriction: Diabetic Female (carb 45g/meal) Other Restrictions: Ground Meat 05/03/23 1637 Physician Expected Discharge Date: 05/06/2023 Discharge Delays: Awaiting accepting facility [113] Waiting on discharge facility authorization [108] PT Six Click Score: 16 OT Six Click Score: 18 PT Recommendations: jail facility placement OT Recommendations: jail facility placement New Consults: Consult Orders (From admission, onward) Start Ordered 04/26/23 1357 Inpatient consult to Cardiology Once Specialty: Cardiology Provider: (Not yet assigned) Question Answer Comment Consulting Group CARDIOLOGY TEAM Reason for Consult? NSTEMI, direct transfer, communicated earlier [employer], on heparin gtt Level of Consultation Consultation and Management 04/26/23 1357 Therapy Orders (From admission, onward) Start Ordered 04/27/23 1307 PT eval and treat Until therapy completed Question: Reason for PT? Answer: eval 04/27/23 1306 04/27/23 1307 OT eval and treat Until therapy completed Question: Reason for OT? Answer: eval 04/27/23 1306 Normal [facility] 30 The patient is Moder ately Stable - Low risk of patient condition declining or worsening The patient's goals for the shift include TED The clinical goals for the shift include VSS Pt alert but confused. Able to feed self with set up. Incontinent of bowel/bladder. Awaiting SNF placement. Normal [facility] POCT GLUCOSE METER UNSOLICIT ED RESULTSon 05-06-2023 Glucose [Mass/Vol] 237 mg/dL High 70-105 [facility] Comment on above: Order Comment: Waive d Testing in the ED is performed under the ED CLIA certificate #[id number]. Result Comment: [email or web address] Performed By: #### L [id number] #### [facility] ([facility]) [address] [place] [address] Glucose [Mass/Vol] 137 mg/dL High 70-105 [facility] Comment on above: Order Comment: Waive d Testing in the ED is performed under the ED CLIA certificate #[id number]. Result Comment: [email or web address] Performed By: #### L [id number] #### [facility] ([facility]) [address] [place] [address] 30on 05-05-2023 30 The patient is Moder ately Stable - Low risk of patient condition declining or worsening The patient's goals for the shift include Comfort The clinical goals for the shift include VSS and D/C Planning Over the shift, the patient did not make progress toward the following goals. Barriers to progression include needing per-cert. Recommendations to address these barriers include to work with social work and outcome management on getting this approve . Problem: Pain - Adult Goal: Verbalizes/displays adequate comfort level or baseline comfort level Outcome: Progressing Problem: Safety - Adult Goal: Free from fall injury Outcome: Progressing Flowsheets (Taken 05/05/2023 0730) Free from fall injury: Assess patient frequently for physical needs Identify cognitive and physical deficits and behaviors that affect risk of falls [place] fall precautions as indicated by assessment Educate patient/family on patient safety, including physical limitations Instruct patient to call for assistance with activity based on assessment Modify environment to reduce risk of injury Consider OT/PT consult to assist with strengthening/mobility Problem: Discharge Planning Goal: Discharge to home or other facility with appropriate resources Outcome: Progressing Flowsheets (Taken 05/05/2023729) Discharge to home or other facility with appropriate resources: Identify barriers to discharge with patient and caregiver Arrange for needed discharge resources and transportation as appropriate Problem: Chronic Conditions and Co-morbidities Goal: Patient's chronic conditions and co-morbidity symptoms are monitored and maintained or improved Outcome: Progressing Flowsheets (Taken 05/05/2023729) Care Plan - Patient's Chronic Conditions and Co-Morbidity Symptoms are Monitored and Maintained or Improved: Monitor and assess patient's chronic conditions and comorbid symptoms for stability, deterioration, or improvement Collaborate with multidisciplinary team to address chronic and comorbid conditions and prevent exacerbation or deterioration Update acute care plan with appropriate goals if chronic or comorbid symptoms are exacerbated and prevent overall improvement and discharge Problem: Neurosensory - Adult Goal: Achieves stable or improved neurological status Outcome: Progressing Flowsheets (Taken 05/05/2023729) Achieves stable or improved neurological status: Assess for and report changes in neurological status Maintain blood pressure and fluid volume within ordered parameters to optimize cerebral perfusion and minimize risk of hemorrhage Monitor temperature, glucose, and sodium. Initiate appropriate interventions as ordered Problem: Respiratory - Adult Goal: Achieves optimal ventilation and oxygenation Outcome: Progressing Flowsheets (Taken 05/05/2023729) Achieves optimal ventilation and oxygenation: Assess for changes in respiratory status Assess for changes in mentation and behavior Oxygen supplementation based on oxygen saturation or arterial blood gases Assess and instruct to report shortness of breath or any respiratory difficulty Respiratory therapy support as indicated Problem: Cardiovascular - Adult Goal: Maintains optimal cardiac output and hemodynamic stability Outcome: Progressing Flowsheets (Taken 05/05/2023729) Maintains optimal cardiac output and hemodynamic stability: Monitor blood pressure and heart rate Monitor urine output and notify Licensed Independent Practitioner for values outside of normal range Assess for signs of decreased cardiac output Problem: Skin/Tissue Integrity - Adult Goal: Skin integrity remains intact Outcome: Progressing Flowsheets (Taken 05/05/2023729) Skin integrity remains intact: Monitor for areas of redness and/or skin breakdown Problem: Musculoskeletal - Adult Goal: Return mobility to safest level of function Outcome: Progressing Flowsheets (Taken 05/05/2023729) Return mobility to safest level of function: Assess patient stability and activity tolerance for standing, transferring and ambulating with or without assistive devices Assist with transfers and ambulation using safe patient handling equipment as needed Ensure adequate protection for wounds/incisions during mobilization Obtain physical therapy/occupational therapy consults as needed Apply continuous passive motion per provider or physical therapy orders to increase flexion toward goal Instruct patient/family in ordered activity level Problem: Gastrointestinal - Adult Goal: Maintains adequate nutritional intake Outcome: Progressing Flowsheets (Taken 05/05/2023729) Maintains adequate nutritional intake: Monitor percentage of each meal consumed Assist with meals as needed Monitor intake and output, weight and lab values Problem: Infection - Adult Goal: Absence of infection at discharge Outcome: Progressing Flowsheets (Taken 05/05/2023729) (more content not included)... Normal [facility] POCT GLUCOSE METER UNSOLICIT ED RESULTSon 05-05-2023 Glucose [Mass/Vol] 261 mg/dL High 70-105 [facility] Comment on above: Order Comment: Waive d Testing in the ED is performed under the ED CLIA certificate #[id number]. Result Comment: [email or web address] Performed By: #### L [id number] #### [facility] ([facility]) [address] [place] [address] Glucose [Mass/Vol] 136 mg/dL High 70-105 [facility] Comment on above: Order Comment: Waive d Testing in the ED is performed under the ED CLIA certificate #[id number]. Result Comment: [email or web address] Performed By: #### L [id number] ####[facility] ([facility])[address] [place] [address] Glucose [Mass/Vol] 255 mg/dL High 70-105 [facility] Comment on above: Order Comment: Waive d Testing in the ED is performed under the ED CLIA certificate #[id number]. Result Comment: [email or web address] Performed By: #### L [id number] #### [facility] ([facility]) [address] [place] [address] Glucose [Mass/Vol] 194 mg/dL High 70-105 [facility] Comment on above: Order Comment: Waive d Testing in the ED is performed under the ED CLIA certificate #[id number]. Result Comment: [email or web address] Performed By: #### L [id number] #### [facility] ([facility]) [address] [place] [address] 30on 05-04-2023 30 The patient is Moder ately Stable - Low risk of patient condition declining or worsening The patient's goals for the shift include comfort The clinical goals for the shift include VSS Problem: Pain - Adult Goal: Verbalizes/displays adequate comfort level or baseline comfort level Outcome: Progressing Flowsheets (Taken 05/04/2023 0910 by Adilson Gallo RN) Verbalizes/displays adequate comfort level or baseline comfort level: Encourage patient to monitor pain and request assistance Assess pain using appropriate pain scale Administer analgesics based on type and severity of pain and evaluate response Problem: Safety - Adult Goal: Free from fall injury Outcome: Progressing Flowsheets (Taken 05/04/2023 07 by Adilson Gallo, RN) Free from fall injury: Assess patient frequently for physical needs Identify cognitive and physical deficits and behaviors that affect risk of falls [place] fall precautions as indicated by assessment Educate patient/family on patient safety, including physical limitations Instruct patient to call for assistance with activity based on assessment Modify environment to reduce risk of injury Consider OT/PT consult to assist with strengthening/mobility Problem: Discharge Planning Goal: Discharge to home or other facility with appropriate resources Outcome: Progressing Flowsheets (Taken 05/04/2023729 by Adilson Gallo, RN) Discharge to home or other facility with appropriate resources: Identify barriers to discharge with patient and caregiver Arrange for needed discharge resources and transportation as appropriate Identify discharge learning needs (meds, wound care, etc) Problem: Chronic Conditions and Co-morbidities Goal: Patient's chronic conditions and co-morbidity symptoms are monitored and maintained or improved Outcome: Progressing Flowsheets (Taken 05/04/2023729 by Adilson Gallo RN) Care Plan - Patient's Chronic Conditions and Co-Morbidity Symptoms are Monitored and Maintained or Improved: Monitor and assess patient's chronic conditions and comorbid symptoms for stability, deterioration, or improvement Collaborate with multidisciplinary team to address chronic and comorbid conditions and prevent exacerbation or deterioration Update acute care plan with appropriate goals if chronic or comorbid symptoms are exacerbated and prevent overall improvement and discharge Normal [facility] 30 The patient is Moder ately Stable - Low risk of patient condition declining or worsening The patient's goals for the shift include Comfort The clinical goals for the shift include VSS Over the shift, the patient did make progress toward the following goals listed below; Problem: Pain - Adult Goal: Verbalizes/displays adequate comfort level or baseline comfort level 05/04/20231640 by Adilson Gallo RN Outcome: Progressing Flowsheets (Taken 05/04/2023 0910) Verbalizes/displays adequate comfort level or baseline comfort level: Encourage patient to monitor pain and request assistance Assess pain using appropriate pain scale Administer analgesics based on type and severity of pain and evaluate response 05/04/20231640 by Adilson Gallo RN Outcome: Progressing Flowsheets (Taken 05/04/2023 0910) Verbalizes/displays adequate comfort level or baseline comfort level: Encourage patient to monitor pain and request assistance Assess pain using appropriate pain scale Administer analgesics based on type and severity of pain and evaluate response Problem: Safety - Adult Goal: Free from fall injury 05/04/20231640 by Adilson Gallo RN Outcome: Progressing Flowsheets (Taken 05/04/2023 0730) Free from fall injury: Assess patient frequently for physical needs Identify cognitive and physical deficits and behaviors that affect risk of falls [place] fall precautions as indicated by assessment Educate patient/family on patient safety, including physical limitations Instruct patient to call for assistance with activity based on assessment Modify environment to reduce risk of injury Consider OT/PT consult to assist with strengthening/mobility 05/04/20231640 by Adilson Gallo RN Outcome: Progressing Flowsheets (Taken 05/04/2023 0730) Free from fall injury: Assess patient frequently for physical needs Identify cognitive and physical deficits and behaviors that affect risk of falls [place] fall precautions as indicated by assessment Educate patient/family on patient safety, including physical limitations Instruct patient to call for assistance with activity based on assessment Modify environment to reduce risk of injury Consider OT/PT consult to assist with strengthening/mobility Problem: Discharge Planning Goal: Discharge to home or other facility with appropriate resources 05/04/20231640 by Adilson Gallo RN Outcome: Progressing Flowsheets (Taken 05/04/2023729) Discharge to home or other facility with appropriate resources: Identify barriers to discharge with patient and caregiver Arrange for needed discharge resources and transportation as appropriate Identify discharge learning needs (meds, wound care, etc) 05/04/20231640 by Adilson Gallo RN Outcome: Progressing Flowsheets (Taken 05/04/2023729) Discharge to home or other facility with appropriate resources: Identify barriers to discharge with patient and caregiver Arrange for needed discharge resources and transportation as appropriate Identify discharge learning needs (meds, wound care, etc) Problem: Chronic Conditions and Co-morbidities Goal: Patient's chronic conditions and co-morbidity symptoms are monitored and maintained or improved 05/04/20231640 by Adilson Gallo RN Outcome: Progressing Flowsheets (Taken 05/04/2023729) Care Plan - Patient's Chronic Conditions and Co-Morbidity Symptoms are Monitored and Maintained or Improved: Monitor and assess patient's chronic conditions and comorbid symptoms for stability, deterioration, or improvement Collaborate with multidisciplinary team to address chronic and comorbid conditions and prevent exacerbation or deterioration Update acute care plan with appropriate goals if chronic or comorbid symptoms are exacerbated and prevent overall improvement and discharge 05/04/20231640 by Adilson Gallo RN Outcome: Progressing Flowsheets (Taken 05/04/2023729) Care Plan - Patient's Chronic Conditions and Co-Morbidity Symptoms are Monitored and Maintained or Improved: Monitor and assess patient's chronic conditions and comorbid symptoms for stability, deterioration, or improvement Collaborate with multidisciplinary team to address chronic and comorbid conditions and prevent exacerbation or deterioration Update acute care plan with appropriate goals if chronic or comorbid symptoms are exacerbated and prevent overall improvement and discharge Problem: Neurosensory - Adult Goal: Achieves stable or improved neurological status 05/04/20231640 by Adilson Gallo RN Outcome: Progressing Flowsheets (Taken 05/04/2023729) Achieves stable or improved neurological status: Assess for and report changes in neurological status Maintain blood pressure and fluid volume within ordered parameters to optimize cerebral perfusion and minimize risk of hemorrhage Monitor temperature, glucose, and sodium. Initiate appropriate interventions as ordered 05/04/20231640 by Dominick Velázquez (more content not included)... Normal [facility] BASIC METABOLIC PANELon 04-23 Anion gap [Moles/Vol] 10 mmol/L Normal 7-20 [facility] Comment on above: Performed By: #### L [id number] #### [facility] ([facility]) [address] [place] [address] Calcium [Mass/Vol] 9.4 mg/dL Normal 8.6-10.3 [facility] Comment on above: Performed By: #### L [id number] #### [facility] ([facility]) [address] [place] [address] Chloride [Moles/Vol] 108 mmol/L High 98-107 [facility] Comment on above: Performed By: #### L [id number] #### [facility] ([facility]) [address] [place] [address] CO2 [Moles/Vol] 24 mmol/L Normal 21-31 [facility] Comment on above: Performed By: #### L [id number] #### [facility] ([facility]) [address] [place] [address] Creatinine [Mass/Vol] 0.82 mg/dL Normal 0.60-1.20 [facility] Comment on above: Performed By: #### L [id number] #### [facility] ([facility]) [address] [place] [address] GLOMERULAR FILTRATION RATE ML/MIN/1.73 SQ M.PREDICTED 78.4 mL/min/1.73m*2 Normal >60.0 [facility] Comment on above: Result Comment: The [facility]???s estimated glomerular filtration rate (eGFR) will no longer include consideration of race in its calculation. The National Kid[employer] Foundation???s eGFR Task Force developed new recommendations for the estimation of the glomerular filtration rate in the [place] They recommend immediate implementation of the new equation refit without the race variable in all laboratories because the calculation does not include race. In addition to not including race in the calculation and reporting, it included diversity in its development, and has acceptable performance characteristics and potential consequences that do not disproportionately affect any one group of individuals. Performed By: #### L [id number] #### [facility] ([facility]) [address] [place] [address] Glucose [Mass/Vol] 75 mg/dL Normal 70-100 [facility] Comment on above: Performed By: #### L [id number] #### [facility] ([facility]) [address] [place] [address] Potassium [Moles/Vol] 4.0 mmol/L Normal 3.5-5.1 [facility] Comment on above: Performed By: #### L [id number] #### [facility] ([facility]) [address] [place] [address] Sodium [Moles/Vol] 138 mmol/L Normal 136-145 [facility] Comment on above: Performed By: #### L [id number] #### [facility] ([facility]) [address] [place] [address] Urea nitrogen [Mass/Vol] 18 mg/dL Normal 7-25 [facility] Comment on above: Performed By: #### L [id number] #### [facility] ([facility]) [address] [place] [address] UREA NITROGEN/CREATININE (MASS RATIO) IN SER/PLAS 22.0 Normal [facility] Comment on above: Performed By: #### L [id number] #### [facility] ([facility]) [address] [place] [address] CBCon 05-04-2023 Erythrocyte distribution width (RBC) [Ratio] 13.7 % Normal 11.5-15.0 [facility] Comment on above: Performed By: #### L [id number] #### [facility] ([facility]) [address] [place] [address] ERYTHROCYTE MEAN CORPUSCULAR HEMOGLOBIN CONCENTRATION (G/DL) BY AUTOMATED 32.7 g/dL Normal 32.0-35.0 [facility] Comment on above: Performed By: #### L [id number] #### [facility] ([facility]) [address] [place] [address] Hematocrit (Bld) [Volume fraction] 39.7 % Normal 36.0-48.0 [facility] Comment on above: Performed By: #### L [id number] #### [facility]) [address] [place] [address] Hemoglobin (Bld) [Mass/Vol] 13.0 g/dL Normal 12.0-15.0 [facility] Comment on above: Performed By: #### L [id number] #### [facility] ([facility]) [address] [place] [address] MCH (RBC) [Entitic mass] 28.3 pg Normal 27.0-33.0 [facility] Comment on above: Performed By: #### L [id number] #### [facility] ([facility]) [address] [place] [address] MCV (RBC) [Entitic vol] 86.3 fL Normal 82.0-98.0 [facility] Comment on above: Performed By: #### L [id number] #### [facility] ([facility]) [address] [place] [address] PLATELETS (10*3/UL) IN BLOOD AUTOMATED COUNT 383 10*3/uL Normal 150-400 [facility] Comment on above: Performed By: #### L [id number] #### [facility] ([facility]) [address] [place] [address] RBC (Bld) [#/Vol] 4.60 10*6/uL Normal 3.80-5.00 [facility] Comment on above: Performed By: #### L [id number] #### [facility] ([facility]) [address] [place] [address] WBC (Bld) [#/Vol] 8.84 10*3/uL Normal 4.00-10.60 [facility] Comment on above: Performed By: #### L [id number] #### [facility] ([facility]) [address] [place] [address] MAGNESIUMon 05-04-2023 Magnesium [Mass/Vol] 1.5 mg/dL Low 1.9-2.7 [facility] Comment on above: Performed By: #### L [id number] #### [facility] ([facility]) [address] [place] [address] POCT GLUCOSE METER UNSOLICIT ED RESULTSon 05-04-2023 Glucose [Mass/Vol] 181 mg/dL High 70-105 [facility] Comment on above: Order Comment: Waive d Testing in the ED is performed under the ED CLIA certificate #[id number]. Result Comment: [email or web address] Performed By: #### L [id number] #### [facility] ([facility]) [address] [place] [address] Glucose [Mass/Vol] 141 mg/dL High 70-105 [facility] Comment on above: Order Comment: Waive d Testing in the ED is performed under the ED CLIA certificate #[id number]. Result Comment: [email or web address] Performed By: #### L [id number] #### [facility] ([facility]) [address] [place] [address] Glucose [Mass/Vol] 189 mg/dL High 70-105 [facility] Comment on above: Order Comment: Waive d Testing in the ED is performed under the ED CLIA certificate #[id number]. Result Comment: [email or web address] Performed By: #### L [id number] #### [facility] ([facility]) [address] [place] [address] Glucose [Mass/Vol] 84 mg/dL Normal 70-105 [facility] Comment on above: Order Comment: Waive d Testing in the ED is performed under the ED CLIA certificate #[id number]. Result Comment: [email or web address] Performed By: #### L [id number] #### [facility] ([facility]) [address] [place] [address] TROPONIN Ion 05-04-2023 Troponin I.cardiac [Mass/Vol] 0.04 ng/mL Normal 0.00-0.04 [facility] Comment on above: Performed By: #### L [id number] #### [facility] ([facility]) [address] [place] [address] 30on 05-03-2023 30 The patient is Moder ately Stable - Low risk of patient condition declining or worsening The patient's goals for the shift include comfort The clinical goals for the shift include VSS/ cath Problem: Pain - Adult Goal: Verbalizes/displays adequate comfort level or baseline comfort level Outcome: Progressing Flowsheets (Taken 05/03/2023 08 by Sharon Aranda RN) Verbalizes/displays adequate comfort level or baseline comfort level: Encourage patient to monitor pain and request assistance Assess pain using appropriate pain scale Administer analgesics based on type and severity of pain and evaluate response Implement non-pharmacological measures as appropriate and evaluate response Consider cultural and social influences on pain and pain management Notify Licensed Independent Practitioner if interventions unsuccessful or patient reports new pain Problem: Safety - Adult Goal: Free from fall injury Outcome: Progressing Flowsheets (Taken 05/03/2023 1100 by Sharon Aranda RN) Free from fall injury: Assess patient frequently for physical needs Identify cognitive and physical deficits and behaviors that affect risk of falls [place] fall precautions as indicated by assessment Educate patient/family on patient safety, including physical limitations Instruct patient to call for assistance with activity based on assessment Modify environment to reduce risk of injury Consider OT/PT consult to assist with strengthening/mobility Problem: Discharge Planning Goal: Discharge to home or other facility with appropriate resources Outcome: Progressing Flowsheets (Taken 05/03/2023 08 by Sharon Aranda RN) Discharge to home or other facility with appropriate resources: Identify barriers to discharge with patient and caregiver Arrange for needed discharge resources and transportation as appropriate Identify discharge learning needs (meds, wound care, etc) Arrange for interpreters to assist at discharge as needed Refer to discharge planning if patient needs post-hospital services based on physician order or complex needs related to functional status, cognitive ability or social support system Problem: Chronic Conditions and Co-morbidities Goal: Patient's chronic conditions and co-morbidity symptoms are monitored and maintained or improved Outcome: Progressing Flowsheets (Taken 05/03/2023 08 by Sharon Aranda RN) Care Plan - Patient's Chronic Conditions and Co-Morbidity Symptoms are Monitored and Maintained or Improved: Monitor and assess patient's chronic conditions and comorbid symptoms for stability, deterioration, or improvement Collaborate with multidisciplinary team to address chronic and comorbid conditions and prevent exacerbation or deterioration Update acute care plan with appropriate goals if chronic or comorbid symptoms are exacerbated and prevent overall improvement and discharge Normal [facility] 30 The patient is Moder ately Stable - Low risk of patient condition declining or worsening The patient's goals for the shift include comfort The clinical goals for the shift include safety/VSS/heart cath Problem: Pain - Adult Goal: Verbalizes/displays adequate comfort level or baseline comfort level Outcome: Progressing Flowsheets (Taken 05/03/2023 0800) Verbalizes/displays adequate comfort level or baseline comfort level: Encourage patient to monitor pain and request assistance Assess pain using appropriate pain scale Administer analgesics based on type and severity of pain and evaluate response Implement non-pharmacological measures as appropriate and evaluate response Consider cultural and social influences on pain and pain management Notify Licensed Independent Practitioner if interventions unsuccessful or patient reports new pain Problem: Safety - Adult Goal: Free from fall injury Outcome: Progressing Flowsheets (Taken 05/03/2023 1100) Free from fall injury: Assess patient frequently for physical needs Identify cognitive and physical deficits and behaviors that affect risk of falls [place] fall precautions as indicated by assessment Educate patient/family on patient safety, including physical limitations Instruct patient to call for assistance with activity based on assessment Modify environment to reduce risk of injury Consider OT/PT consult to assist with strengthening/mobility Problem: Discharge Planning Goal: Discharge to home or other facility with appropriate resources Outcome: Progressing Flowsheets (Taken 05/03/2023799) Discharge to home or other facility with appropriate resources: Identify barriers to discharge with patient and caregiver Arrange for needed discharge resources and transportation as appropriate Identify discharge learning needs (meds, wound care, etc) Arrange for interpreters to assist at discharge as needed Refer to discharge planning if patient needs post-hospital services based on physician order or complex needs related to functional status, cognitive ability or social support system Problem: Chronic Conditions and Co-morbidities Goal: Patient's chronic conditions and co-morbidity symptoms are monitored and maintained or improved Outcome: Progressing Flowsheets (Taken 05/03/2023 0800) Care Plan - Patient's Chronic Conditions and Co-Morbidity Symptoms are Monitored and Maintained or Improved: Monitor and assess patient's chronic conditions and comorbid symptoms for stability, deterioration, or improvement Collaborate with multidisciplinary team to address chronic and comorbid conditions and prevent exacerbation or deterioration Update acute care plan with appropriate goals if chronic or comorbid symptoms are exacerbated and prevent overall improvement and discharge Problem: Neurosensory - Adult Goal: Achieves stable or improved neurological status Outcome: Progressing Flowsheets (Taken 05/03/2023799) Achieves stable or improved neurological status: Assess for and report changes in neurological status Initiate measures to prevent increased intracranial pressure Maintain blood pressure and fluid volume within ordered parameters to optimize cerebral perfusion and minimize risk of hemorrhage Monitor temperature, glucose, and sodium. Initiate appropriate interventions as ordered Problem: Respiratory - Adult Goal: Achieves optimal ventilation and oxygenation Outcome: Progressing Flowsheets (Taken 05/03/2023799) Achieves optimal ventilation and oxygenation: Assess for changes in respiratory status Position to facilitate oxygenation and minimize respiratory effort Assess for changes in mentation and behavior Oxygen supplementation based on oxygen saturation or arterial blood gases Assess and instruct to report shortness of breath or any respiratory difficulty Problem: Cardiovascular - Adult Goal: Maintains optimal cardiac output and hemodynamic stability Outcome: Progressing Flowsheets (Taken 05/03/2023799) Maintains optimal cardiac output and hemodynamic stability: Monitor blood pressure and heart rate Monitor urine output and notify Licensed Independent Practitioner for values outside of normal range Assess for signs of decreased cardiac output Administer fluid and/or volume expanders as ordered Administer vasoactive medications as ordered Problem: Skin/Tissue Integrity - Adult Goal: Skin integrity remains intact Outcome: Progressing Flowsheets (Taken 05/03/2023799) Skin integrity remains intact: Monitor for areas of redness and/or skin breakdown Assess vascular access sites hourly Change oxygen saturation probe site as needed If on nasal continuous positive airway pressure, respiratory therapy assesses nares and determine need for appliance change or resting period as needed Problem: Musculoskeletal - Adult Goal: Return mobility to safest level of function Outcome: Progressing Flowshe (more content not included)... Normal [facility] 30 Daily Case Managemen t Update Multidisciplinary rounds have been completed. 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 cath today Diet: Dietary Orders (From admission, onward) Start Ordered 05/03/23901 Diet NPO Diet effective now Comments: Sips with medications 05/03/23901 Physician Expected Discharge Date: 05/04/2023 Discharge Delays: Awaiting accepting facility [[id number]] Waiting on discharge facility authorization [108] PT Six Click Score: 16 OT Six Click Score: 15 PT Recommendations: jail facility placement OT Recommendations: jail facility placement New Consults: Consult Orders (From admission, onward) Start Ordered 04/26/23 1357 Inpatient consult to Cardiology Once Specialty: Cardiology Provider: (Not yet assigned) Question Answer Comment Consulting Group CARDIOLOGY TEAM Reason for Consult? NSTEMI, direct transfer, communicated earlier [employer], on heparin gtt Level of Consultation Consultation and Management 04/26/23 1357 Therapy Orders (From admission, onward) Start Ordered 04/27/23 1307 PT eval and treat Until therapy completed Question: Reason for PT? Answer: eval 04/27/23 1306 04/27/23 1307 OT eval and treat Until therapy completed Question: Reason for OT? Answer: eval 04/27/23 1306 [facility] 30 The patient is Moder ately Stable - Low risk of patient condition declining or worsening The patient's goals for the shift include comfort The clinical goals for the shift include Safety/VSS Problem: Pain - Adult Goal: Verbalizes/displays adequate comfort level or baseline comfort level Outcome: Progressing Flowsheets (Taken 04/30/2023 1145 by BUZZ CARTY) Verbalizes/displays adequate comfort level or baseline comfort level: Encourage patient to monitor pain and request assistance Assess pain using appropriate pain scale Administer analgesics based on type and severity of pain and evaluate response Implement non-pharmacological measures as appropriate and evaluate response Problem: Safety - Adult Goal: Free from fall injury Outcome: Progressing Flowsheets (Taken 04/30/2023 0740 by BUZZ CARTY) Free from fall injury: Assess patient frequently for physical needs Identify cognitive and physical deficits and behaviors that affect risk of falls [place] fall precautions as indicated by assessment Educate patient/family on patient safety, including physical limitations Instruct patient to call for assistance with activity based on assessment Modify environment to reduce risk of injury Consider OT/PT consult to assist with strengthening/mobility Problem: Discharge Planning Goal: Discharge to home or other facility with appropriate resources Outcome: Progressing Flowsheets (Taken 04/30/2023 0740 by BUZZ CARTY) Discharge to home or other facility with appropriate resources: Identify barriers to discharge with patient and caregiver Arrange for needed discharge resources and transportation as appropriate Identify discharge learning needs (meds, wound care, etc) Problem: Chronic Conditions and Co-morbidities Goal: Patient's chronic conditions and co-morbidity symptoms are monitored and maintained or improved Outcome: Progressing Flowsheets (Taken 04/30/2023 0740 by BUZZ CARTY) Care Plan - Patient's Chronic Conditions and Co-Morbidity Symptoms are Monitored and Maintained or Improved: Monitor and assess patient's chronic conditions and comorbid symptoms for stability, deterioration, or improvement Collaborate with multidisciplinary team to address chronic and comorbid conditions and prevent exacerbation or deterioration Update acute care plan with appropriate goals if chronic or comorbid symptoms are exacerbated and prevent overall improvement and discharge Normal [facility] CBCon 05-03-2023 Erythrocyte distribution width (RBC) [Ratio] 13.5 % Normal 11.5-15.0 [facility] Comment on above: Performed By: #### L [id number] #### [facility] ([facility]) [address] [place] [address] ERYTHROCYTE MEAN CORPUSCULAR HEMOGLOBIN CONCENTRATION (G/DL) BY AUTOMATED 32.0 g/dL Normal 32.0-35.0 [facility] Comment on above: Performed By: #### L [id number] #### [facility] ([facility]) [address] [place] [address] Hematocrit (Bld) [Volume fraction] 40.6 % Normal 36.0-48.0 [facility] Comment on above: Performed By: #### L [id number] #### [facility] ([facility]) [address] [place] [address] Hemoglobin (Bld) [Mass/Vol] 13.0 g/dL Normal 12.0-15.0 [facility] Comment on above: Performed By: #### L [id number] #### [facility] ([facility]) [address] [place] [address] MCH (RBC) [Entitic mass] 27.9 pg Normal 27.0-33.0 [facility] Comment on above: Performed By: #### L [id number] #### [facility] ([facility]) [address] [place] [address] MCV (RBC) [Entitic vol] 87.1 fL Normal 82.0-98.0 [facility] Comment on above: Performed By: #### L [id number] #### [facility] ([facility]) [address] [place] [address] PLATELETS (10*3/UL) IN BLOOD AUTOMATED COUNT 298 10*3/uL Normal 150-400 [facility] Comment on above: Performed By: #### L [id number] #### [facility] ([facility]) [address] [place] [address] RBC (Bld) [#/Vol] 4.66 10*6/uL Normal 3.80-5.00 [facility] Comment on above: Performed By: #### L [id number] #### [facility] ([facility]) [address] [place] [address] WBC (Bld) [#/Vol] 7.80 10*3/uL Normal 4.00-10.60 [facility] Comment on above: Performed By: #### L [id number] #### [facility] ([facility]) [address] [place] [address] POCT GLUCOSE METER UNSOLICIT ED RESULTSon 05-03-2023 Glucose [Mass/Vol] 87 mg/dL Normal 70-105 [facility] Comment on above: Order Comment: Basel ine aPTT before initiating heparin infusion. Result Comment: [email or web address] Performed By: #### L [id number] #### [facility] ([facility]) [address] [place] [address] Glucose [Mass/Vol] 366 mg/dL High 70-105 [facility] Comment on above: Order Comment: Waive d Testing in the ED is performed under the ED CLIA certificate #[id number]. Result Comment: [facility] [email or web address] Performed By: #### L [id number] #### [facility] ([facility]) [address] [place] [address] Glucose [Mass/Vol] 236 mg/dL High 70-105 [facility] Comment on above: Order Comment: Waive d Testing in the ED is performed under the ED CLIA certificate #[id number]. Result Comment: [email or web address] Performed By: #### L [id number] ####[facility] ([facility])[address] [place] [address] Glucose [Mass/Vol] 161 mg/dL High 70-105 [facility] Comment on above: Order Comment: Waive d Testing in the ED is performed under the ED CLIA certificate #[id number]. Result Comment: [email or web address] Performed By: #### L [id number] ####[facility] ([facility])[address] [place] [facility] [place] [address] 30on 05-02-2023 30 The patient is Moder ately Stable - Low risk of patient condition declining or worsening The patient's goals for the shift include Comfort The clinical goals for the shift include safety Over the shift, the patient made progress toward the following goals: Problem: Pain - Adult Goal: Verbalizes/displays adequate comfort level or baseline comfort level Outcome: Progressing Problem: Safety - Adult Goal: Free from fall injury Outcome: Progressing Problem: Discharge Planning Goal: Discharge to home or other facility with appropriate resources Outcome: Progressing Problem: Chronic Conditions and Co-morbidities Goal: Patient's chronic conditions and co-morbidity symptoms are monitored and maintained or improved Outcome: Progressing Problem: Neurosensory - Adult Goal: Achieves stable or improved neurological status Outcome: Progressing Problem: Skin/Tissue Integrity - Adult Goal: Skin integrity remains intact Outcome: Progressing Problem: Musculoskeletal - Adult Goal: Return mobility to safest level of function Outcome: Progressing Problem: Gastrointestinal - Adult Goal: Maintains adequate nutritional intake Outcome: Progressing Problem: Infection - Adult Goal: Absence of infection at discharge Outcome: Progressing Problem: Metabolic/Fluid and Electrolytes - Adult Goal: Electrolytes maintained within normal limits Outcome: Progressing Problem: Hematologic - Adult Goal: Maintains hematologic stability Outcome: Progressing Problem: Respiratory - Adult Goal: Achieves optimal ventilation and oxygenation Outcome: Adequate for Discharge Problem: Cardiovascular - Adult Goal: Maintains optimal cardiac output and hemodynamic stability Outcome: Adequate for Discharge Problem: Genitourinary - Adult Goal: Absence of urinary retention Outcome: Adequate for Discharge Normal [facility] BASIC METABOLIC PANELon 08- Anion gap [Moles/Vol] 11 mmol/L Normal 7-20 [facility] Comment on above: Performed By: #### L [id number] #### [facility] ([facility]) [address] [place] [address] Calcium [Mass/Vol] 9.3 mg/dL Normal 8.6-10.3 [facility] Comment on above: Performed By: #### L [id number] #### [facility] ([facility]) [address] [place] [address] Chloride [Moles/Vol] 108 mmol/L High 98-107 [facility] Comment on above: Performed By: #### L [id number] #### [facility] ([facility]) [address] [place] [address] CO2 [Moles/Vol] 26 mmol/L Normal 21-31 [facility] Comment on above: Performed By: #### L [id number] #### [facility] ([facility]) [address] [place] [address] Creatinine [Mass/Vol] 0.88 mg/dL Normal 0.60-1.20 [facility] Comment on above: Performed By: #### L [id number] #### [facility] ([facility]) [address] [place] [address] GLOMERULAR FILTRATION RATE ML/MIN/1.73 SQ M.PREDICTED 72.0 mL/min/1.73m*2 Normal >60.0 [facility] Comment on above: Result Comment: The [facility]???s estimated glomerular filtration rate (eGFR) will no longer include consideration of race in its calculation. The National Kidney Foundation???s eGFR Task Force developed new recommendations for the estimation of the glomerular filtration rate in the [place] They recommend immediate implementation of the new equation refit without the race variable in all laboratories because the calculation does not include race. In addition to not including race in the calculation and reporting, it included diversity in its development, and has acceptable performance characteristics and potential consequences that do not disproportionately affect any one group of individuals. Performed By: #### L [id number] #### [facility] ([facility]) [address] [place] [address] Glucose [Mass/Vol] 197 mg/dL High 70-100 [facility] Comment on above: Performed By: #### L [id number] #### [facility] ([facility]) [address] [place] [address] Potassium [Moles/Vol] 3.9 mmol/L Normal 3.5-5.1 [facility] Comment on above: Performed By: #### L [id number] #### [facility] ([facility]) [address] [place] [address] Sodium [Moles/Vol] 141 mmol/L Normal 136-145 [facility] Comment on above: Performed By: #### L [id number] #### [facility] ([facility]) [address] [place] [address] Urea nitrogen [Mass/Vol] 24 mg/dL Normal 7-25 [facility] Comment on above: Performed By: #### L [id number] #### [facility] ([facility]) [address] [place] [address] UREA NITROGEN/CREATININE (MASS RATIO) IN SER/PLAS 27.3 Normal [facility] Comment on above: Performed By: #### L [id number] #### [facility] ([facility]) [address] [place] [address] MAGNESIUMon 05-02-2023 Magnesium [Mass/Vol] 1.5 mg/dL Low 1.9-2.7 [facility] Comment on above: Performed By: #### L [id number] ####[facility] ([facility])[address] [place] [address] POCT GLUCOSE METER UNSOLICIT ED RESULTSon 05-02-2023 Glucose [Mass/Vol] 204 mg/dL High 70-105 [facility] Comment on above: Order Comment: Basel ine aPTT before initiating heparin infusion. Result Comment: [email or web address] Performed By: #### L [id number] #### [facility] ([facility]) [address] [place] [address] Glucose [Mass/Vol] 372 mg/dL High 70-105 [facility] Comment on above: Order Comment: Waive d Testing in the ED is performed under the ED CLIA certificate #[id number]. Result Comment: [email or web address] Performed By: #### L [id number] #### [facility] ([facility]) [address] [place] [address] Glucose [Mass/Vol] 338 mg/dL High 70-105 [facility] Comment on above: Order Comment: Waive d Testing in the ED is performed under the ED CLIA certificate #[id number]. Result Comment: [email or web address] Performed By: #### L [id number] #### [facility] ([facility]) [address] [place] [address] Glucose [Mass/Vol] 144 mg/dL High 70-105 [facility] Comment on above: Order Comment: Waive d Testing in the ED is performed under the ED CLIA certificate #[id number]. Result Comment: [email or web address] Performed By: #### L [id number] #### [facility] ([facility]) [address] [place] [address] 30on 05-01-2023 30 Daily Case Managemen t Update Multidisciplinary rounds have been completed. Barriers to Discharge: Patient was NPO for Cath today. SW following et to get choices; will need precert. Diet: Dietary Orders (From admission, onward) Start Ordered 05/01/23 1501 Regular Diet Diet effective now Question: Room Service? Answer: Yes 05/01/23 1501 Physician Expected Discharge Date: 05/02/2023 Discharge Delays: PT Six Click Score: 16 OT Six Click Score: 15 PT Recommendations: jail facility placement OT Recommendations: jail facility placement New Consults: Consult Orders (From admission, onward) Start Ordered 04/26/23 1357 Inpatient consult to Cardiology Once Specialty: Cardiology Provider: (Not yet assigned) Question Answer Comment Consulting Group CARDIOLOGY TEAM Reason for Consult? NSTEMI, direct transfer, communicated earlier [employer], on heparin gtt Level of Consultation Consultation and Management 04/26/23 1357 Ancillary Consults (From admission, onward) Start Ordered 04/29/23 1112 Inpatient consult to Social Work Once Provider: (Not yet assigned) Question Answer Comment Select all services needed for the patient Residential Facility (30 day convalescent stay) Please indicate your approval for this care by adding your name here: YRIS QUAN 04/29/23 1111 04/27/23 0104 Inpatient consult to Social Work Once Provider: (Not yet assigned) Question Answer Comment Select all services needed for the patient Other Other: HX Adult protective service cases, discharge planning 04/27/23 0104 Therapy Orders (From admission, onward) Start Ordered 04/27/23 1307 PT eval and treat Until therapy completed Question: Reason for PT? Answer: eval 04/27/23 1306 04/27/23 1307 OT eval and treat Until therapy completed Question: Reason for OT? Answer: eval 04/27/23 1306 Normal [facility] 30 The patient is Moder ately Stable - Low risk of patient condition declining or worsening The patient's goals for the shift include TED The clinical goals for the shift include VSS Over the shift, the patient made progress toward the following goals: Problem: Pain - Adult Goal: Verbalizes/displays adequate comfort level or baseline comfort level Outcome: Progressing Problem: Safety - Adult Goal: Free from fall injury Outcome: Progressing Problem: Discharge Planning Goal: Discharge to home or other facility with appropriate resources Outcome: Progressing Problem: Chronic Conditions and Co-morbidities Goal: Patient's chronic conditions and co-morbidity symptoms are monitored and maintained or improved Outcome: Progressing Problem: Neurosensory - Adult Goal: Achieves stable or improved neurological status Outcome: Progressing Problem: Respiratory - Adult Goal: Achieves optimal ventilation and oxygenation Outcome: Progressing Problem: Cardiovascular - Adult Goal: Maintains optimal cardiac output and hemodynamic stability Outcome: Progressing Problem: Skin/Tissue Integrity - Adult Goal: Skin integrity remains intact Outcome: Progressing Problem: Musculoskeletal - Adult Goal: Return mobility to safest level of function Outcome: Progressing Problem: Gastrointestinal - Adult Goal: Maintains adequate nutritional intake Outcome: Progressing Problem: Infection - Adult Goal: Absence of infection at discharge Outcome: Progressing Problem: Metabolic/Fluid and Electrolytes - Adult Goal: Electrolytes maintained within normal limits Outcome: Progressing Problem: Hematologic - Adult Goal: Maintains hematologic stability Outcome: Progressing Problem: Genitourinary - Adult Goal: Absence of urinary retention Outcome: Progressing Normal [facility] BASIC METABOLIC PANELon 08-0 Anion gap [Moles/Vol] 11 mmol/L Normal 7-20 [facility] Comment on above: Performed By: #### L [id number] #### [facility] ([facility]) [address] [place] [address] Calcium [Mass/Vol] 9.1 mg/dL Normal 8.6-10.3 [facility] Comment on above: Performed By: #### L [id number] #### [facility] ([facility]) [address] [place] [address] Chloride [Moles/Vol] 108 mmol/L High 98-107 [facility] Comment on above: Performed By: #### L [id number] #### [facility] ([facility]) [address] [place] [address] CO2 [Moles/Vol] 23 mmol/L Normal 21-31 [facility] Comment on above: Performed By: #### L [id number] #### [facility] ([facility]) [address] [place] [address] Creatinine [Mass/Vol] 0.76 mg/dL Normal 0.60-1.20 [facility] Comment on above: Performed By: #### L [id number] #### [facility] ([facility]) [address] [place] [address] GLOMERULAR FILTRATION RATE ML/MIN/1.73 SQ M.PREDICTED 85.8 mL/min/1.73m*2 Normal >60.0 [facility] Comment on above: Result Comment: The [facility]???s estimated glomerular filtration rate (eGFR) will no longer include consideration of race in its calculation. The National Kidney Foundation???s eGFR Task Force developed new recommendations for the estimation of the glomerular filtration rate in the [place] They recommend immediate implementation of the new equation refit without the race variable in all laboratories because the calculation does not include race. In addition to not including race in the calculation and reporting, it included diversity in its development, and has acceptable performance characteristics and potential consequences that do not disproportionately affect any one group of individuals. Performed By: #### L [id number] #### [facility] ([facility]) [address] [place] [address] Glucose [Mass/Vol] 204 mg/dL High 70-100 [facility] Comment on above: Performed By: #### L [id number] #### [facility] ([facility]) [address] [place] [address] Potassium [Moles/Vol] 4.1 mmol/L Normal 3.5-5.1 [facility] Comment on above: Performed By: #### L [id number] #### [facility] ([facility]) [address] [place] [address] Sodium [Moles/Vol] 138 mmol/L Normal 136-145 [facility] Comment on above: Performed By: #### L [id number] #### [facility] ([facility]) [address] [place] [address] Urea nitrogen [Mass/Vol] 26 mg/dL High 7-25 [facility] Comment on above: Performed By: #### L [id number] #### [facility] ([facility]) [address] [place] [address] UREA NITROGEN/CREATININE (MASS RATIO) IN SER/PLAS 34.2 Normal [facility] Comment on above: Performed By: #### L [id number] #### [facility] ([facility]) [address] [place] [address] CBCon 05-01-2023 Erythrocyte distribution width (RBC) [Ratio] 13.2 % Normal 11.5-15.0 [facility] Comment on above: Performed By: #### L [id number] ####[facility] ([facility])[address] [place] [address] ERYTHROCYTE MEAN CORPUSCULAR HEMOGLOBIN CONCENTRATION (G/DL) BY AUTOMATED 33.0 g/dL Normal 32.0-35.0 [facility] Comment on above: Performed By: #### L [id number] ####[facility] ([facility])[address] [place], [place] [address] Hematocrit (Bld) [Volume fraction] 39.4 % Normal 36.0-48.0 [facility] Comment on above: Performed By: #### L [id number] ####[facility] ([facility])[address] [place] [address] Hemoglobin (Bld) [Mass/Vol] 13.0 g/dL Normal 12.0-15.0 [facility] Comment on above: Performed By: #### L [id number] ####[facility] ([facility])[address] [place] [address] MCH (RBC) [Entitic mass] 28.0 pg Normal 27.0-33.0 [facility] Comment on above: Performed By: #### L [id number] ####[facility] ([facility])[address] [place], [place] [address] MCV (RBC) [Entitic vol] 84.9 fL Normal 82.0-98.0 [facility] Comment on above: Performed By: #### L [id number] ####[facility] ([facility])[address] [place], [place] [address] PLATELETS (10*3/UL) IN BLOOD AUTOMATED COUNT 341 10*3/uL Normal 150-400 [facility] Comment on above: Performed By: #### L [id number] ####[facility] ([facility])[address] [place], [place] [address] RBC (Bld) [#/Vol] 4.64 10*6/uL Normal 3.80-5.00 [facility] Comment on above: Performed By: #### L [id number] ####[facility] ([facility])[address] [place], [place] [address] WBC (Bld) [#/Vol] 7.98 10*3/uL Normal 4.00-10.60 [facility] Comment on above: Performed By: #### L [id number] ####[facility] ([facility])[address] [place] [address] HPon 05-01-2023 HP ------ -- Attestation signed by Gaby Sanchez MD at 05/01/2023 3:08 PM Due to worsening in the patient's mental status, the cardiac catheterization will be deferred at this juncture. Decisions regarding timing will need to be made on a day-to-day basis. Gaby Sanchez MD, MPH, [facility], [facility], [facility] Interventional Cardiology Pager Email: [email or web address] -- H&P reviewed. The patient was examined and there are no changes to the H&P. Patient with NSTEMI vs Type II DC and new reduction of EF (45% to 30%). Peak troponin 2.4. Plan for coronary angiography today. Normal [facility] MAGNESIUMon 05-01-2023 Magnesium [Mass/Vol] 1.3 mg/dL Low 1.9-2.7 [facility] Comment on above: Performed By: #### L [id number] #### [facility] ([facility]) [address] [place] [address] NURSNOTEon 05-01-2023 NURSNOTE Patient had pulled h er IV out, verse writer called the PICC-nurse to start a new one and patient tried to hit the PICC nurse and refused to get the IV. Dr. Quan is aware that patient is without an IV. Normal [facility] NURSNOTE Patient has become m ore agitated and non-compliant with telemetry monitoring. She tried to hit the verse writer and leave the room. Security was called and they helped the patient back to bed and safety. Dr. Quan is notified and he is okay with patient not being monitored. [facility] is notified as well. Normal [facility] POCT GLUCOSE METER UNSOLICIT ED RESULTSon 05-01-2023 Glucose [Mass/Vol] 241 mg/dL High 70-105 [facility] Comment on above: Order Comment: Waive d Testing in the ED is performed under the ED CLIA certificate #[id number]. Result Comment: atru ss Performed By: #### L [id number] #### [facility] ([facility]) [address] [place] [address] Glucose [Mass/Vol] 174 mg/dL High 70-105 [facility] Comment on above: Order Comment: Waive d Testing in the ED is performed under the ED CLIA certificate #[id number]. Result Comment: [email or web address] esn Performed By: #### L [id number] #### [facility] ([facility]) [address] [place] [address] Glucose [Mass/Vol] 211 mg/dL High 70-105 [facility] Comment on above: Order Comment: Waive d Testing in the ED is performed under the ED CLIA certificate #[id number]. Result Comment: [facility] oy20 Performed By: #### L [id number] #### [facility] ([facility]) [address] [place] [address] 30on 04-30-2023 30 Daily Case Managemen t Update Multidisciplinary rounds have been completed. Barriers to Discharge: per notes-confused at her baseline but less agitated. CT brain at OSH showed no acute event. UA showed no UTI. Psych is following. pt/ot recommending snf. SW to get acceptance and start precert Diet: Dietary Orders (From admission, onward) Start Ordered 04/29/23 1751 Dysphagia III Soft Diet Heart Healthy/HTN, CABG,Stroke, (2gNA, low fat, low cholesterol); Diabetic Female (carb 45g/meal); Ground Meat Diet effective now Question Answer Comment Room Service? No Fat restriction: Heart Healthy/HTN, CABG,Stroke, (2gNA, low fat, low cholesterol) Carbohydrate restriction: Diabetic Female (carb 45g/meal) Other Restrictions: Ground Meat 04/29/23 1751 Physician Expected Discharge Date: 05/01/2023 Discharge Delays: PT Six Click Score: 10 OT Six Click Score: 6 PT Recommendations: jail facility placement OT Recommendations: jail facility placement New Consults: Consult Orders (From admission, onward) Start Ordered 04/26/23 1357 Inpatient consult to Cardiology Once Specialty: Cardiology Provider: (Not yet assigned) Question Answer Comment Consulting Group CARDIOLOGY TEAM Reason for Consult? NSTEMI, direct transfer, communicated earlier [employer], on heparin gtt Level of Consultation Consultation and Management 04/26/23 1357 Ancillary Consults (From admission, onward) Start Ordered 04/29/23 1112 Inpatient consult to Social Work Once Provider: (Not yet assigned) Question Answer Comment Select all services needed for the patient Residential Facility (30 day convalescent stay) Please indicate your approval for this care by adding your name here: YRIS QUAN 04/29/23 1111 04/27/23 0104 Inpatient consult to Social Work Once Provider: (Not yet assigned) Question Answer Comment Select all services needed for the patient Other Other: HX Adult protective service cases, discharge planning 04/27/23 0104 Therapy Orders (From admission, onward) Start Ordered 04/27/23 1307 PT eval and treat Until therapy completed Question: Reason for PT? Answer: eval 04/27/23 1306 04/27/23 1307 OT eval and treat Until therapy completed Question: Reason for OT? Answer: eval 04/27/23 1306 Normal [facility] 30 The patient is Moder ately Stable - Low risk of patient condition declining or worsening The patient's goals for the shift include TED The clinical goals for the shift include VSS Problem: Pain - Adult Goal: Verbalizes/displays adequate comfort level or baseline comfort level Outcome: Progressing Problem: Safety - Adult Goal: Free from fall injury Outcome: Progressing Problem: Discharge Planning Goal: Discharge to home or other facility with appropriate resources Outcome: Progressing Problem: Chronic Conditions and Co-morbidities Goal: Patient's chronic conditions and co-morbidity symptoms are monitored and maintained or improved Outcome: Progressing Problem: Neurosensory - Adult Goal: Achieves stable or improved neurological status Outcome: Progressing Problem: Respiratory - Adult Goal: Achieves optimal ventilation and oxygenation Outcome: Progressing Problem: Cardiovascular - Adult Goal: Maintains optimal cardiac output and hemodynamic stability Outcome: Progressing Problem: Skin/Tissue Integrity - Adult Goal: Skin integrity remains intact Outcome: Progressing Problem: Musculoskeletal - Adult Goal: Return mobility to safest level of function Outcome: Progressing Problem: Gastrointestinal - Adult Goal: Maintains adequate nutritional intake Outcome: Progressing Problem: Infection - Adult Goal: Absence of infection at discharge Outcome: Progressing Problem: Metabolic/Fluid and Electrolytes - Adult Goal: Electrolytes maintained within normal limits Outcome: Progressing Problem: Hematologic - Adult Goal: Maintains hematologic stability Outcome: Progressing Problem: Genitourinary - Adult Goal: Absence of urinary retention Outcome: Progressing Normal [facility] 30 The patient is Moder ately Stable - Low risk of patient condition declining or worsening The patient's goals for the shift include unable to state - ams The clinical goals for the shift include hemodynamically stable Over the shift, the patient made progress toward the following goals: Problem: Safety - Adult Goal: Free from fall injury Outcome: Progressing Problem: Discharge Planning Goal: Discharge to home or other facility with appropriate resources Outcome: Progressing Problem: Chronic Conditions and Co-morbidities Goal: Patient's chronic conditions and co-morbidity symptoms are monitored and maintained or improved Outcome: Progressing Problem: Neurosensory - Adult Goal: Achieves stable or improved neurological status Outcome: Progressing Problem: Cardiovascular - Adult Goal: Maintains optimal cardiac output and hemodynamic stability Outcome: Progressing Problem: Skin/Tissue Integrity - Adult Goal: Skin integrity remains intact Outcome: Progressing Problem: Musculoskeletal - Adult Goal: Return mobility to safest level of function Outcome: Progressing Problem: Gastrointestinal - Adult Goal: Maintains adequate nutritional intake Outcome: Progressing Problem: Infection - Adult Goal: Absence of infection at discharge Outcome: Progressing Problem: Metabolic/Fluid and Electrolytes - Adult Goal: Electrolytes maintained within normal limits Outcome: Progressing Problem: Hematologic - Adult Goal: Maintains hematologic stability Outcome: Progressing Problem: Genitourinary - Adult Goal: Absence of urinary retention Outcome: Progressing Problem: Pain - Adult Goal: Verbalizes/displays adequate comfort level or baseline comfort level Outcome: Adequate for Discharge Problem: Respiratory - Adult Goal: Achieves optimal ventilation and oxygenation Outcome: Adequate for Discharge Normal [facility] BASIC METABOLIC PANELon 08-0 Anion gap [Moles/Vol] 11 mmol/L Normal 7-20 [facility] Comment on above: Performed By: #### L [id number] #### [facility] ([facility]) [address] [place] [address] Calcium [Mass/Vol] 9.3 mg/dL Normal 8.6-10.3 [facility] Comment on above: Performed By: #### L [id number] #### [facility] ([facility]) [address] [place] [address] Chloride [Moles/Vol] 108 mmol/L High 98-107 [facility] Comment on above: Performed By: #### L [id number] #### [facility] ([facility]) [address] [place] [address] CO2 [Moles/Vol] 29 mmol/L Normal 21-31 [facility] Comment on above: Performed By: #### L [id number] #### [facility] ([facility]) [address] [place] [address] Creatinine [Mass/Vol] 0.82 mg/dL Normal 0.60-1.20 [facility] Comment on above: Performed By: #### L [id number] #### [facility] ([facility]) [address] [place] [address] GLOMERULAR FILTRATION RATE ML/MIN/1.73 SQ M.PREDICTED 78.4 mL/min/1.73m*2 Normal >60.0 [facility] Comment on above: Result Comment: The [facility]???s estimated glomerular filtration rate (eGFR) will no longer include consideration of race in its calculation. The National Kidney Foundation???s eGFR Task Force developed new recommendations for the estimation of the glomerular filtration rate in the [place] They recommend immediate implementation of the new equation refit without the race variable in all laboratories because the calculation does not include race. In addition to not including race in the calculation and reporting, it included diversity in its development, and has acceptable performance characteristics and potential consequences that do not disproportionately affect any one group of individuals. Performed By: #### L [id number] #### [facility] ([facility]) [address] [place] [address] Glucose [Mass/Vol] 165 mg/dL High 70-100 [facility] Comment on above: Performed By: #### L [id number] #### [facility] ([facility]) [address] [place] [address] Potassium [Moles/Vol] 3.7 mmol/L Normal 3.5-5.1 [facility] Comment on above: Performed By: #### L [id number] #### [facility] ([facility]) [address] [place] [address] Sodium [Moles/Vol] 144 mmol/L Normal 136-145 [facility] Comment on above: Performed By: #### L [id number] #### [facility] ([facility]) [address] [place] [address] Urea nitrogen [Mass/Vol] 22 mg/dL Normal 7-25 [facility] Comment on above: Performed By: #### L [id number] #### [facility] ([facility]) [address] [place] [address] UREA NITROGEN/CREATININE (MASS RATIO) IN SER/PLAS 26.8 Normal [facility] Comment on above: Performed By: #### L [id number] #### [facility] ([facility]) [address] [place] [address] MAGNESIUMon 04-30-2023 Magnesium [Mass/Vol] 1.5 mg/dL Low 1.9-2.7 [facility] Comment on above: Performed By: #### L [id number] #### [facility] ([facility]) [address] [place] [address] POCT GLUCOSE METER UNSOLICIT ED RESULTSon 04-30-2023 Glucose [Mass/Vol] 202 mg/dL High 70-105 [facility] Comment on above: Order Comment: Waive d Testing in the ED is performed under the ED CLIA certificate #[id number]. Result Comment: [email or web address] Performed By: #### L [id number] #### [facility] ([facility]) [address] [place] [address] Glucose [Mass/Vol] 379 mg/dL High 70-105 [facility] Comment on above: Order Comment: Waive d Testing in the ED is performed under the ED CLIA certificate #[id number]. Result Comment: [facility] oy20 Performed By: #### L [id number] ####[facility] ([facility])[address] [place] [address] Glucose [Mass/Vol] 150 mg/dL High 70-105 [facility] Comment on above: Order Comment: Waive d Testing in the ED is performed under the ED CLIA certificate #[id number]. Result Comment: [facility] oy20 Performed By: #### L [id number] #### [facility] ([facility]) [address] [place] [address] Glucose [Mass/Vol] 156 mg/dL High 70-105 [facility] Comment on above: Order Comment: Waive d Testing in the ED is performed under the ED CLIA certificate #[id number]. Result Comment: [email or web address] Performed By: #### L [id number] #### [facility] ([facility]) [address] [place] [address] 30on 04-29-2023 30 Daily Case Managemen t Update Multidisciplinary rounds have been completed. Barriers to Discharge: Confusion and agitation yesterday. EF is 30 % (Newly reduced). Trend troponin. pt/ot Recommending snf. SW consulted . Diet: Dietary Orders (From admission, onward) Start Ordered 04/29/231750 Dysphagia III Soft Diet Heart Healthy/HTN, CABG,Stroke, (2gNA, low fat, low cholesterol); Diabetic Female (carb 45g/meal); Ground Meat Diet effective now Question Answer Comment Room Service? No Fat restriction: Heart Healthy/HTN, CABG,Stroke, (2gNA, low fat, low cholesterol) Carbohydrate restriction: Diabetic Female (carb 45g/meal) Other Restrictions: Ground Meat 04/29/231750 Physician Expected Discharge Date: 05/01/2023 Discharge Delays: PT Six Click Score: 10 OT Six Click Score: 6 PT Recommendations: jail facility placement OT Recommendations: jail facility placement New Consults: Consult Orders (From admission, onward) Start Ordered 04/29/23 1103 Inpatient consult to Psychiatry Once Specialty: Psychiatry Provider: (Not yet assigned) Question Answer Comment Consulting Group PSYCHIATRY TEAM Reason for Consult? dementia with delirium Level of Consultation Consultation and Management 04/29/23 1103 04/26/23 1357 Inpatient consult to Cardiology Once Specialty: Cardiology Provider: (Not yet assigned) Question Answer Comment Consulting Group CARDIOLOGY TEAM Reason for Consult? NSTEMI, direct transfer, communicated earlier [employer], on heparin gtt Level of Consultation Consultation and Management 04/26/23 1357 Ancillary Consults (From admission, onward) Start Ordered 04/29/23 1112 Inpatient consult to Social Work Once Provider: (Not yet assigned) Question Answer Comment Select all services needed for the patient Residential Facility (30 day convalescent stay) Please indicate your approval for this care by adding your name here: [email or web address] 04/29/23 1111 04/27/23 0104 Inpatient consult to Social Work Once Provider: (Not yet assigned) Question Answer Comment Select all services needed for the patient Other Other: HX Adult protective service cases, discharge planning 04/27/23 0104 Therapy Orders (From admission, onward) Start Ordered 04/27/23 1307 PT eval and treat Until therapy completed Question: Reason for PT? Answer: eval 04/27/23 1306 04/27/23 1307 OT eval and treat Until therapy completed Question: Reason for OT? Answer: eval 04/27/23 1306 [facility] 30 Problem: Pain - Adul t Goal: Verbalizes/displays adequate comfort level or baseline comfort level Outcome: Progressing Flowsheets Taken 04/29/2023 1601 Verbalizes/displays adequate comfort level or baseline comfort level: Encourage patient to monitor pain and request assistance Assess pain using appropriate pain scale Administer analgesics based on type and severity of pain and evaluate response Implement non-pharmacological measures as appropriate and evaluate response Consider cultural and social influences on pain and pain management Notify Licensed Independent Practitioner if interventions unsuccessful or patient reports new pain Taken 04/29/2023 0810 Verbalizes/displays adequate comfort level or baseline comfort level: Encourage patient to monitor pain and request assistance Assess pain using appropriate pain scale Administer analgesics based on type and severity of pain and evaluate response Implement non-pharmacological measures as appropriate and evaluate response Consider cultural and social influences on pain and pain management Notify Licensed Independent Practitioner if interventions unsuccessful or patient reports new pain Problem: Safety - Adult Goal: Free from fall injury Outcome: Progressing Flowsheets Taken 04/29/2023 1601 Free from fall injury: Assess patient frequently for physical needs Identify cognitive and physical deficits and behaviors that affect risk of falls [place] fall precautions as indicated by assessment Educate patient/family on patient safety, including physical limitations Instruct patient to call for assistance with activity based on assessment Modify environment to reduce risk of injury Consider OT/PT consult to assist with strengthening/mobility Taken 04/29/2023 0810 Free from fall injury: Assess patient frequently for physical needs Identify cognitive and physical deficits and behaviors that affect risk of falls [place] fall precautions as indicated by assessment Educate patient/family on patient safety, including physical limitations Instruct patient to call for assistance with activity based on assessment Modify environment to reduce risk of injury Consider OT/PT consult to assist with strengthening/mobility Problem: Discharge Planning Goal: Discharge to home or other facility with appropriate resources Outcome: Progressing Flowsheets Taken 04/29/2023 1601 Discharge to home or other facility with appropriate resources: Identify barriers to discharge with patient and caregiver Arrange for needed discharge resources and transportation as appropriate Identify discharge learning needs (meds, wound care, etc) Arrange for interpreters to assist at discharge as needed Refer to discharge planning if patient needs post-hospital services based on physician order or complex needs related to functional status, cognitive ability or social support system Taken 04/29/2023 0810 Discharge to home or other facility with appropriate resources: Identify discharge learning needs (meds, wound care, etc) Arrange for needed discharge resources and transportation as appropriate Identify barriers to discharge with patient and caregiver Arrange for interpreters to assist at discharge as needed Refer to discharge planning if patient needs post-hospital services based on physician order or complex needs related to functional status, cognitive ability or social support system Problem: Chronic Conditions and Co-morbidities Goal: Patient's chronic conditions and co-morbidity symptoms are monitored and maintained or improved Outcome: Progressing Flowsheets Taken 04/29/2023 1601 Care Plan - Patient's Chronic Conditions and Co-Morbidity Symptoms are Monitored and Maintained or Improved: Monitor and assess patient's chronic conditions and comorbid symptoms for stability, deterioration, or improvement Collaborate with multidisciplinary team to address chronic and comorbid conditions and prevent exacerbation or deterioration Update acute care plan with appropriate goals if chronic or comorbid symptoms are exacerbated and prevent overall improvement and discharge Taken 04/29/2023 0810 Care Plan - Patient's Chronic Conditions and Co-Morbidity Symptoms are Monitored and Maintained or Improved: Monitor and assess patient's chronic conditions and comorbid symptoms for stability, deterioration, or improvement Collaborate with multidisciplinary team to address chronic and comorbid conditions and prevent exacerbation or deterioration Update acute care plan with appropriate goals if chronic or comorbid symptoms are exacerbated and prevent overall improvement and discharge Problem: Neurosensory - Adult Goal: Achieves stable or improved neurological status Outcome: Progressing Flowsheets Taken 04/29/2023 1601 Achieves stable or improved neurological status: Assess for and report changes in neurological status Initiate measures to preven (more content not included)... Normal [facility] BASIC METABOLIC PANELon 08-0 Anion gap [Moles/Vol] 15 mmol/L Normal 7-20 [facility] Comment on above: Performed By: #### L [id number] #### [facility] ([facility]) [address] [place] [address] Calcium [Mass/Vol] 9.1 mg/dL Normal 8.6-10.3 [facility] Comment on above: Performed By: #### L [id number] #### [facility] ([facility]) [address] [place] [address] Chloride [Moles/Vol] 106 mmol/L Normal 98-107 [facility] Comment on above: Performed By: #### L [id number] #### [facility] ([facility]) [address] [place] [address] CO2 [Moles/Vol] 22 mmol/L Normal 21-31 [facility] Comment on above: Performed By: #### L [id number] #### [facility] ([facility]) [address] [place] [address] Creatinine [Mass/Vol] 0.74 mg/dL Normal 0.60-1.20 [facility] Comment on above: Performed By: #### L [id number] #### [facility] ([facility]) [address] [place] [address] GLOMERULAR FILTRATION RATE ML/MIN/1.73 SQ M.PREDICTED 88.6 mL/min/1.73m*2 Normal >60.0 [facility] Comment on above: Result Comment: The [facility]???s estimated glomerular filtration rate (eGFR) will no longer include consideration of race in its calculation. The National Kidney Foundation???s eGFR Task Force developed new recommendations for the estimation of the glomerular filtration rate in the [place] They recommend immediate implementation of the new equation refit without the race variable in all laboratories because the calculation does not include race. In addition to not including race in the calculation and reporting, it included diversity in its development, and has acceptable performance characteristics and potential consequences that do not disproportionately affect any one group of individuals. Performed By: #### L [id number] #### [facility] ([facility]) [address] [place] [address] Glucose [Mass/Vol] 223 mg/dL High 70-100 [facility] Comment on above: Performed By: #### L [id number] #### [facility] ([facility]) [address] [place] [address] Potassium [Moles/Vol] 3.8 mmol/L Normal 3.5-5.1 [facility] Comment on above: Performed By: #### L [id number] #### [facility] ([facility]) [address] [place] [address] Sodium [Moles/Vol] 139 mmol/L Normal 136-145 [facility] Comment on above: Performed By: #### L [id number] #### [facility] ([facility]) [address] [place] [address] Urea nitrogen [Mass/Vol] 20 mg/dL Normal 7-25 [facility] Comment on above: Performed By: #### L [id number] #### [facility] ([facility]) [address] [place] [address] UREA NITROGEN/CREATININE (MASS RATIO) IN SER/PLAS 27.0 Normal [facility] Comment on above: Performed By: #### L [id number] #### [facility] ([facility]) [address] [place] [address] CBCon 04-29-2023 Erythrocyte distribution width (RBC) [Ratio] 13.2 % Normal 11.5-15.0 [facility] Comment on above: Performed By: #### L [id number] #### [facility] ([facility]) [address] [place] [address] ERYTHROCYTE MEAN CORPUSCULAR HEMOGLOBIN CONCENTRATION (G/DL) BY AUTOMATED 34.3 g/dL Normal 32.0-35.0 [facility] Comment on above: Performed By: #### L [id number] #### [facility] ([facility]) [address] [place] [address] Hematocrit (Bld) [Volume fraction] 38.2 % Normal 36.0-48.0 [facility] Comment on above: Performed By: #### L [id number] #### [facility] ([facility]) [address] [place] [address] Hemoglobin (Bld) [Mass/Vol] 13.1 g/dL Normal 12.0-15.0 [facility] Comment on above: Performed By: #### L [id number] #### [facility] ([facility]) [address] [place] [address] MCH (RBC) [Entitic mass] 28.5 pg Normal 27.0-33.0 [facility] Comment on above: Performed By: #### L [id number] #### [facility] ([facility]) [address] [place] [address] MCV (RBC) [Entitic vol] 83.2 fL Normal 82.0-98.0 [facility] Comment on above: Performed By: #### L [id number] #### [facility] ([facility]) [address] [place] [address] PLATELETS (10*3/UL) IN BLOOD AUTOMATED COUNT 305 10*3/uL Normal 150-400 [facility] Comment on above: Performed By: #### L [id number] #### [facility] ([facility]) [address] [place] [address] RBC (Bld) [#/Vol] 4.59 10*6/uL Normal 3.80-5.00 [facility] Comment on above: Performed By: #### L [id number] #### [facility] ([facility]) [address] [place] [address] WBC (Bld) [#/Vol] 7.42 10*3/uL Normal 4.00-10.60 [facility] Comment on above: Performed By: #### L [id number] #### [facility] ([facility]) [address] [place] [address] CONSULTon 04-29-2023 CONSULT ------ -- Attestation signed by Luis Alvarez DO at 05/01/2023 1:00 PM Agree with above, provisional diagnosis is delirium secondary to medical condition. -- PSYCHIATRIC INITIAL HISTORY AND PHYSICAL/CONSULT NOTE Kiara Blanc is a 68 y.o. female who presented on 04/26/2023 to [facility] from [facility] ([facility]) for acute NSTEMI. Psychiatry was consulted on 04/29/2023 for dementia and delirium. Legal guardian/Decision maker: Per patient, self. No assigned POA. Subjective: History of Present Illness: Patient is a 68-year-old female with an unknown psychiatric history and medical history of CAD, HLD, CAD, chronic diastolic HF w/ NYHA Class II, diabetes mellitus presented to [facility] as a direct transfer for cardiology service evaluation for acute NSTEMI. She was admitted initially at [facility]) on 04/25/2023 after she was found lying on the floor in between the wall and the couch. On EMS arrival, patient was altered, had extensive stool over her entire body, and dehydrated. She underwent trauma work-up which was within normal limits. Patient was non-participatory in history and did not offer any meaningful information. She did not remember any events. EMS concerned that patient did not provide any additional care for her and refuses to clean or help her at home. Over at the facility on arrival, she was noted to have rhabdommyolysis, suspected UTI, and hypoglycemia and initial troponin was slightly elevated. She received IV resuscitation, started on empiric Rocephin and troponin curve was trended. Patient denied any chest pain or any symptoms associated with her symptoms. CT head, C-spine, CXR, pelvic XR were negative. EKG showed sinus tachycardia with no other acute abnormalities. Lab studies showed minimal leukocytosis (WBC 11.5). Urine culture was positive for grover tropicalis. On 04/26/23, she had elevated troponin level increased from 100 to over 1000. She was subsequently transferred to [facility] for cardiac evaluation. She was started on aspirin and heparin drip was commenced. Patient had an episode of hypoglycemia as low as 30 during OSH hospitalization, which subsequently led to start on a dextrose drip. A1C 9.1. Today lab result shows Mg 1.6 but CBC, TSH3 reflex, B12 other electrolytes are within normal limits. Psychiatry was consulted on 04/29/2023 for dementia and delirium. Patient was evaluated at bedside when the interview was conducted. Patient reports symptoms of depression including changes in sleep and anhedonia, changes in energy, decreased concentration. Patient denies symptoms of valentine, psychosis, and anxiety. Mitts were placed due to agitation. When asked about the incident, she only could remember that she tripped over and fell down. Her mood is pretty good , and her appetite is good. She denies any SI with intent, plan, and HI. She seemed to have intact cognition by showing she understands the reason for her current hospitalization, risks and consequences of denying treatments. She currently lives with and pets. She does not have any kids. Per nursing staff, patient has had an episode of agitation. One time Haldol 1 mg was given, and Seroquel 25 mg twice daily PRN by Dr. Quan was administered from 04/28/23. No acute events overnight. Patient seems to respond well with Seroquel and reports her sleep has improved. Per previous report, patient has a history of noncompliance to her medications. She has a very difficult poor living situation and EMS has called APS multiple times for this patient in the past. Able to talk to , Mr. Cameron Blanc (ph: [phone]) at the patient's bedside. He called EMS when he found her after coming back from work. He states she frequently falls at home and has been hospitalized many times. Per , she refuses to use walker despite it was recommended. ED Course PRN Medications prior to evaluation: 04/26/23 Ativan 0.5 mg IV one time for agitation 04/28/23 Seroquel 25 mg PO twice daily PRN Haldol 1mg PO one time for agitation Risk Assessment Suicidal Ideation, plan, or intent: denies Frequency, Duration, Intensity: denies Suicide Risk Factors: poor medical health Suicide protective Factors: pets Risk Level: Unknown Intervention: Unknown Past Medical History: Medical Dx: CAD, HLD, CAD, chronic diastolic HF w/ NYHA Class II, diabetes mellitus Current Medications: Home meds: Aspirn 325mg, atorvastatin 80 mg, Plavix 75 mg, Lasix 20mg PRN, lisinopril 2.5mg, Lopressor 25 mg, Januvia 100mg, metformin 1000 mg twice daily Allergies: Adhesive, hydrocodone bitartrate, hydrocodoneacetaminophen Head trauma, Loss of Consciousness, concussions: Per , no seizure but frequent falls that led to multiple hospitaliz (more content not included)... Normal [facility] HEPARIN LEVELon 04-29-2023 HEPARIN UNFRACTIONATED (U/ML) IN PPP BY CHROMOGENIC METHOD 0.26 IU/mL Low 0.3-0.7 [facility] Comment on above: Result Comment: Jolanta roxaban and Apixaban will interfere with the anti Xa assay used to monitor UFH and LMWH. Performed By: #### L [id number] ####[facility] ([facility])[address] [facility] [place] [address] MAGNESIUMon 04-29-2023 Magnesium [Mass/Vol] 1.6 mg/dL Low 1.9-2.7 [facility] Comment on above: Performed By: #### L [id number] #### [facility] ([facility]) [address] [place] [address] NURSNOTEon 04-29-2023 NURSNOTE Pt at [facility]. Informed of most recent poc for his at this time. Informed Dr Talley and psychiatry of being present at bedside in order for them to involve in pt care. Psych states will come speak to . Normal [facility] POCT GLUCOSE METER UNSOLICIT ED RESULTSon 04-29-2023 Glucose [Mass/Vol] 209 mg/dL High 70-105 [facility] Comment on above: Order Comment: Waive d Testing in the ED is performed under the ED CLIA certificate #[id number]. Result Comment: [email or web address] Performed By: #### L [id number] ####[facility] ([facility])[address] [place] [address] Glucose [Mass/Vol] 210 mg/dL High 70-105 [facility] Comment on above: Order Comment: Waive d Testing in the ED is performed under the ED CLIA certificate #[id number]. Result Comment: [email or web address] Performed By: #### L [id number] ####[facility] ([facility])[address] [place] [address] Glucose [Mass/Vol] 210 mg/dL High 70-105 [facility] Comment on above: Order Comment: Waive d Testing in the ED is performed under the ED CLIA certificate #[id number]. Result Comment: [email or web address] Performed By: #### L [id number] ####[facility] ([facility])[address] [place] [address] Glucose [Mass/Vol] 184 mg/dL High 70-105 [facility] Comment on above: Order Comment: Waive d Testing in the ED is performed under the ED CLIA certificate #[id number]. Result Comment: [email or web address] Performed By: #### L [id number] #### [facility] ([facility]) [address] [place] [address] TSH3 REFLEX TO FT4on 023 THYROTROPIN (MIU/L) IN SER/PLAS BY DETECTION LIMIT <= 0.05 MIU/L 1.24 mIU/L Normal 0.34-5.60 [facility] Comment on above: Performed By: #### L [id number] #### [facility] ([facility]) [address] [place] [address] URINALYSIS MICROSCOPIC WITH REFLEX CULTUREon 04-29-2023 CASTS IN URINE Normal [facility] Comment on above: Performed By: #### L [id number] #### [facility] ([facility]) [address] [place] [address] CRYSTALS IN URINE Normal [facility] Comment on above: Performed By: #### L [id number] #### [facility] ([facility]) [address] [place] [address] OTHER MICROSCOPIC ELEMENTS Normal [facility] Comment on above: Performed By: #### L [id number] #### [facility] ([facility]) [address] [place] [address] RBC (#/HPF) IN URINE SEDIMENT None Seen Normal None Seen [facility] Comment on above: Performed By: #### L [id number] #### [facility] ([facility]) [address] [place] [address] SQUAMOUS EPITHELIAL CELLS (#/HPF) IN URINE SEDIMENT Few Abnormal None Seen, Occasional [facility] Comment on above: Performed By: #### L [id number] #### [facility] ([facility]) [address] [place] [address] WBC (LEUKOCYTE) (#/HPF) IN URINE SEDIMENT 3-5 Abnormal None Seen [facility] Comment on above: Performed By: #### L [id number] #### [facility] ([facility]) [address] [place] [address] YEAST, BUDDING (#/HPF) IN URINE Many Abnormal None Seen [facility] Comment on above: Performed By: #### L [id number] #### [facility] ([facility]) [address] [place] [address] URINALYSIS WITH REFLEX CULTU REon 04-29-2023 BILIRUBIN, TOTAL PRESENCE IN URINE Negative Normal Negative [facility] Comment on above: Performed By: #### L [id number] #### [facility] ([facility]) [address] [place] [address] Clarity (U) Clear Normal Clear [facility] Comment on above: Performed By: #### L [id number] #### [facility] ([facility]) [address] [place] [address] Color (U) Yellow Normal Yellow [facility] Comment on above: Performed By: #### L [id number] #### [facility] ([facility]) [address] [place] [address] Glucose (U) [Mass/Vol] mg/dL Abnormal [facility]: Performed By: #### L [id number] #### [facility] ([facility]) [address] [place] [address] HEMOGLOBIN PRESENCE IN URINE Moderate Abnormal Negative [facility] Comment on above: Performed By: #### L [id number] #### [facility] ([facility]) [address] [place] [address] Ketones Ql (U) Trace Abnormal Negative [facility] Comment on above: Performed By: #### L [id number] #### [facility] ([facility]) [address] [place] [address] LEUKOCYTE ESTERASE PRESENCE IN URINE BY TEST STRIP Negative Normal Negative [facility] Comment on above: Performed By: #### L [id number] #### [facility] ([facility]) [address] [place] [address] NITRITE PRESENCE IN URINE Negative Normal Negative [facility] Comment on above: Performed By: #### L [id number] #### [facility] ([facility]) [address] [place] [address] pH (U) 5.0 [pH] Normal 5.0-8.0 [facility] Comment on above: Performed By: #### L [id number] #### [facility] ([facility]) [address] [place] [address] Protein (U) [Mass/Vol] 30 mg/dL Abnormal Negative [facility] on above: Performed By: #### L [id number] #### [facility] ([facility]) [address] [place] [address] Specific gravity (U) [Rel density] 1.028 High 1.015-1.020 [facility] Comment on above: Performed By: #### L [id number] #### [facility] ([facility]) [address] [place] [address] VITAMIN B12on 04-29-2023 Cobalamin (Vitamin B12) [Mass/Vol] 512 pg/mL Normal 180-914 [facility] Comment on above: Result Comment: REFE RENCE RANGES: 180-914 pg/mL Normal 145-179 pg/mL Indeterminate <145 pg/mL Deficient Performed By: #### L [id number] #### [facility] ([facility]) [address] [place] [address] 30on 04-28-2023 30 The patient is Moder ately Stable - Low risk of patient condition declining or worsening The patient's goals for the shift include Comfort The clinical goals for the shift include VSS, safety Problem: Pain - Adult Goal: Verbalizes/displays adequate comfort level or baseline comfort level Outcome: Progressing Flowsheets (Taken 04/28/2023 0740) Verbalizes/displays adequate comfort level or baseline comfort level: Encourage patient to monitor pain and request assistance Problem: Safety - Adult Goal: Free from fall injury Outcome: Progressing Problem: Discharge Planning Goal: Discharge to home or other facility with appropriate resources Outcome: Progressing Flowsheets (Taken 04/28/2023 0750) Discharge to home or other facility with appropriate resources: Identify barriers to discharge with patient and caregiver Normal [facility] BASIC METABOLIC PANELon 08-0 Anion gap [Moles/Vol] 12 mmol/L Normal 7-20 [facility] Comment on above: Performed By: #### L [id number] #### [facility] ([facility]) [address] [place] [address] Calcium [Mass/Vol] 9.2 mg/dL Normal 8.6-10.3 [facility] Comment on above: Performed By: #### L [id number] #### [facility] ([facility]) [address] [place] [address] Chloride [Moles/Vol] 106 mmol/L Normal 98-107 [facility] Comment on above: Performed By: #### L [id number] #### [facility] ([facility]) [address] [place] [address] CO2 [Moles/Vol] 25 mmol/L Normal 21-31 [facility] Comment on above: Performed By: #### L [id number] #### [facility] ([facility]) [address] [place] [address] Creatinine [Mass/Vol] 0.64 mg/dL Normal 0.60-1.20 [facility] Comment on above: Performed By: #### L [id number] #### [facility] ([facility]) [address] [place] [address] GLOMERULAR FILTRATION RATE ML/MIN/1.73 SQ M.PREDICTED 96.8 mL/min/1.73m*2 Normal >60.0 [facility] Comment on above: Result Comment: The [facility]???s estimated glomerular filtration rate (eGFR) will no longer include consideration of race in its calculation. The National Kidney Foundation???s eGFR Task Force developed new recommendations for the estimation of the glomerular filtration rate in the [place] They recommend immediate implementation of the new equation refit without the race variable in all laboratories because the calculation does not include race. In addition to not including race in the calculation and reporting, it included diversity in its development, and has acceptable performance characteristics and potential consequences that do not disproportionately affect any one group of individuals. Performed By: #### L [id number] #### [facility] ([facility]) [address] [place] [address] Glucose [Mass/Vol] 163 mg/dL High 70-100 [facility] Comment on above: Performed By: #### L [id number] #### [facility] ([facility]) [address] [place] [address] Potassium [Moles/Vol] 3.8 mmol/L Normal 3.5-5.1 [facility] Comment on above: Performed By: #### L [id number] #### [facility] ([facility]) [address] [place] [address] Sodium [Moles/Vol] 139 mmol/L Normal 136-145 [facility] Comment on above: Performed By: #### L [id number] #### [facility] ([facility]) [address] [place] [address] Urea nitrogen [Mass/Vol] 14 mg/dL Normal 7-25 [facility] Comment on above: Performed By: #### L [id number] #### [facility] ([facility]) [address] [place] [address] UREA NITROGEN/CREATININE (MASS RATIO) IN SER/PLAS 21.9 Normal [facility] Comment on above: Performed By: #### L [id number] #### [facility] ([facility]) [address] [place] [address] CBCon 04-28-2023 Erythrocyte distribution width (RBC) [Ratio] 13.4 % Normal 11.5-15.0 [facility] Comment on above: Performed By: #### L [id number] #### [facility] ([facility]) [address] [place] [address] ERYTHROCYTE MEAN CORPUSCULAR HEMOGLOBIN CONCENTRATION (G/DL) BY AUTOMATED 34.0 g/dL Normal 32.0-35.0 [facility] Comment on above: Performed By: #### L [id number] #### [facility] ([facility]) [address] [place] [address] Hematocrit (Bld) [Volume fraction] 37.1 % Normal 36.0-48.0 [facility] Comment on above: Performed By: #### L [id number] #### [facility] ([facility]) [address] [place] [address] Hemoglobin (Bld) [Mass/Vol] 12.6 g/dL Normal 12.0-15.0 [facility] Comment on above: Performed By: #### L [id number] #### [facility] ([facility]) [address] [place] [address] MCH (RBC) [Entitic mass] 28.2 pg Normal 27.0-33.0 [facility] Comment on above: Performed By: #### L [id number] #### [facility] ([facility]) [address] [place] [address] MCV (RBC) [Entitic vol] 83.0 fL Normal 82.0-98.0 [facility] Comment on above: Performed By: #### L [id number] #### [facility] ([facility]) [address] [place] [address] PLATELETS (10*3/UL) IN BLOOD AUTOMATED COUNT 313 10*3/uL Normal 150-400 [facility] Comment on above: Performed By: #### L [id number] #### [facility] ([facility]) [address] [place] [address] RBC (Bld) [#/Vol] 4.47 10*6/uL Normal 3.80-5.00 [facility] Comment on above: Performed By: #### L [id number] #### [facility] ([facility]) [address] [place] [address] WBC (Bld) [#/Vol] 8.52 10*3/uL Normal 4.00-10.60 [facility] Comment on above: Performed By: #### L [id number] #### [facility] ([facility]) [address] [place] [address] HEPARIN LEVELon 04-28-2023 HEPARIN UNFRACTIONATED (U/ML) IN PPP BY CHROMOGENIC METHOD 0.30 IU/mL Normal 0.3-0.7 [facility] Comment on above: Result Comment: [place] roxaban and Apixaban will interfere with the anti Xa assay used to monitor UFH and LMWH. Performed By: #### L [id number] #### [facility] ([facility]) [address] [place] [address] HEPARIN UNFRACTIONATED (U/ML) IN PPP BY CHROMOGENIC METHOD 0.43 IU/mL Normal 0.3-0.7 [facility] Comment on above: Result Comment: [place] roxaban and Apixaban will interfere with the anti Xa assay used to monitor UFH and LMWH. Performed By: #### L [id number] ####[facility] ([facility])[address] [place] [address] MAGNESIUMon 04-28-2023 Magnesium [Mass/Vol] 1.2 mg/dL Low 1.9-2.7 [facility] Comment on above: Performed By: #### L [id number] #### [facility] ([facility]) [address] [place] [address] NURSNOTEon 04-28-2023 NURSNOTE Pt Hr reaching betwe en 100-115, cardio fellow made aware as well as primary. Normal [facility] NURSNOTE Primary made aware o f 1.2 mag, loss of IV access again, picc paged. Normal [facility] NURSNOTE IV access lost, prim geoffrey made aware, picc paged. [facility] POCT GLUCOSE METER UNSOLICIT ED RESULTSon 04-28-2023 Glucose [Mass/Vol] 205 mg/dL High 70-105 [facility] Comment on above: Order Comment: Waive d Testing in the ED is performed under the ED CLIA certificate #[id number]. Result Comment: atru ss Performed By: #### L [id number] #### [facility] ([facility]) [address] [place] [address] Glucose [Mass/Vol] 223 mg/dL High 70-105 [facility] Comment on above: Order Comment: Waive d Testing in the ED is performed under the ED CLIA certificate #[id number]. Result Comment: [email or web address] Performed By: #### L [id number] ####[facility] ([facility])[address] [place] [address] Glucose [Mass/Vol] 185 mg/dL High 70-105 [facility] Comment on above: Order Comment: Waive d Testing in the ED is performed under the ED CLIA certificate #[id number]. Result Comment: [email or web address] Performed By: #### L [id number] #### [facility] ([facility]) [address] [place] [address] Glucose [Mass/Vol] 146 mg/dL High 70-105 [facility] Comment on above: Order Comment: Waive d Testing in the ED is performed under the ED CLIA certificate #[id number]. Result Comment: [email or web address] Performed By: #### L [id number] #### [facility] ([facility]) [address] [place] [address] 30on 04-27-2023 30 The patient is Moder ately Stable - Low risk of patient condition declining or worsening The patient's goals for the shift include Comfort The clinical goals for the shift include VSS, safety, monitor labs Problem: Discharge Planning Goal: Discharge to home or other facility with appropriate resources Outcome: Progressing Flowsheets (Taken 04/27/2023799) Discharge to home or other facility with appropriate resources: Identify barriers to discharge with patient and caregiver Problem: Respiratory - Adult Goal: Achieves optimal ventilation and oxygenation Outcome: Progressing Flowsheets (Taken 04/27/2023799) Achieves optimal ventilation and oxygenation: Assess for changes in respiratory status Normal [facility] B-TYPE NATRIURETIC PEPTIDEon 04-27-2023 Natriuretic peptide B (Bld) [Mass/Vol] 299 pg/mL High 0-100 [facility] Comment on above: Performed By: #### L [id number] #### [facility] ([facility]) [address] [place] [address] BASIC METABOLIC PANELon 08-0 Anion gap [Moles/Vol] 7 mmol/L Normal 7-20 [facility] Comment on above: Performed By: #### L [id number] #### [facility] ([facility]) [address] [place] [address] Calcium [Mass/Vol] 7.9 mg/dL Low 8.6-10.3 [facility] Comment on above: Performed By: #### L [id number] #### [facility] ([facility]) [address] [place] [address] Chloride [Moles/Vol] 111 mmol/L High 98-107 [facility] Comment on above: Performed By: #### L [id number] #### [facility] ([facility]) [address] [place] [address] CO2 [Moles/Vol] 25 mmol/L Normal 21-31 [facility] Comment on above: Performed By: #### L [id number] #### [facility] ([facility]) [address] [place] [address] Creatinine [Mass/Vol] 0.63 mg/dL Normal 0.60-1.20 [facility] Comment on above: Performed By: #### L [id number] #### [facility] ([facility]) [address] [place] [address] GLOMERULAR FILTRATION RATE ML/MIN/1.73 SQ M.PREDICTED 97.2 mL/min/1.73m*2 Normal >60.0 [facility] Comment on above: Result Comment: The [facility]???s estimated glomerular filtration rate (eGFR) will no longer include consideration of race in its calculation. The National Kidney Foundation???s eGFR Task Force developed new recommendations for the estimation of the glomerular filtration rate in the [place] They recommend immediate implementation of the new equation refit without the race variable in all laboratories because the calculation does not include race. In addition to not including race in the calculation and reporting, it included diversity in its development, and has acceptable performance characteristics and potential consequences that do not disproportionately affect any one group of individuals. Performed By: #### L [id number] #### [facility] ([facility]) [address] [place] [address] Glucose [Mass/Vol] 134 mg/dL High 70-100 [facility] Comment on above: Performed By: #### L [id number] #### [facility] ([facility]) [address] [place] [address] Potassium [Moles/Vol] 3.4 mmol/L Low 3.5-5.1 [facility] Comment on above: Performed By: #### L [id number] #### [facility] ([facility]) [address] [place] [address] Sodium [Moles/Vol] 140 mmol/L Normal 136-145 [facility] Comment on above: Performed By: #### L [id number] #### [facility] ([facility]) [address] [place] [address] Urea nitrogen [Mass/Vol] 9 mg/dL Normal 7-25 [facility] Comment on above: Performed By: #### L [id number] #### [facility] ([facility]) [address] [place] [address] UREA NITROGEN/CREATININE (MASS RATIO) IN SER/PLAS 14.3 Normal [facility] Comment on above: Performed By: #### L [id number] #### [facility] ([facility]) [address] [place] [address] CBCon 04-27-2023 Erythrocyte distribution width (RBC) [Ratio] 13.4 % Normal 11.5-15.0 [facility] Comment on above: Performed By: #### L [id number] ####[facility] ([facility])[address] [place] [address] ERYTHROCYTE MEAN CORPUSCULAR HEMOGLOBIN CONCENTRATION (G/DL) BY AUTOMATED 33.1 g/dL Normal 32.0-35.0 [facility] Comment on above: Performed By: #### L [id number] ####[facility] ([facility])[address] [place] [address] Hematocrit (Bld) [Volume fraction] 35.3 % Low 36.0-48.0 [facility] Comment on above: Performed By: #### L [id number] ####[facility] ([facility])[address] [place] [address] Hemoglobin (Bld) [Mass/Vol] 11.7 g/dL Low 12.0-15.0 [facility] Comment on above: Performed By: #### L [id number] ####[facility] ([facility])[address] [place] [address] MCH (RBC) [Entitic mass] 28.3 pg Normal 27.0-33.0 [facility] Comment on above: Performed By: #### L [id number] ####[facility] ([facility])[address] [place] [address] MCV (RBC) [Entitic vol] 85.3 fL Normal 82.0-98.0 [facility] Comment on above: Performed By: #### L [id number] ####[facility] ([facility])[address] [place] [address] PLATELETS (10*3/UL) IN BLOOD AUTOMATED COUNT 296 10*3/uL Normal 150-400 [facility] Comment on above: Performed By: #### L [id number] ####[facility] ([facility])[address] [place] [address] RBC (Bld) [#/Vol] 4.14 10*6/uL Normal 3.80-5.00 [facility] Comment on above: Performed By: #### L [id number] ####[facility] ([facility])[address] [place] [address] WBC (Bld) [#/Vol] 7.50 10*3/uL Normal 4.00-10.60 [facility] Comment on above: Performed By: #### L [id number] ####[facility] ([facility])[address] [place] [address] HEPARIN LEVELon 04-27-2023 HEPARIN UNFRACTIONATED (U/ML) IN PPP BY CHROMOGENIC METHOD 0.50 IU/mL Normal 0.3-0.7 [facility] Comment on above: Result Comment: [place] roxaban and Apixaban will interfere with the anti Xa assay used to monitor UFH and LMWH. Performed By: #### L [id number] ####[facility] ([facility])[address] [place] [address] HEPARIN UNFRACTIONATED (U/ML) IN PPP BY CHROMOGENIC METHOD 0.81 IU/mL High 0.3-0.7 [facility] Comment on above: Result Comment: [place] roxaban and Apixaban will interfere with the anti Xa assay used to monitor UFH and LMWH. Performed By: #### L [id number] #### [facility] ([facility]) [address] [place] [address] HEPARIN UNFRACTIONATED (U/ML) IN PPP BY CHROMOGENIC METHOD 0.81 IU/mL High 0.3-0.7 [facility] Comment on above: Order Comment: Waive d Testing in the ED is performed under the ED CLIA certificate #[id number]. Result Comment: [place] roxaban and Apixaban will interfere with the anti Xa assay used to monitor UFH and LMWH. Performed By: #### L [id number] #### [facility] ([facility]) [address] [place] [address] HEPARIN UNFRACTIONATED (U/ML) IN PPP BY CHROMOGENIC METHOD 0.56 IU/mL Normal 0.3-0.7 [facility] Comment on above: Order Comment: Waive d Testing in the ED is performed under the ED CLIA certificate #[id number]. Result Comment: [place] roxaban and Apixaban will interfere with the anti Xa assay used to monitor UFH and LMWH. Performed By: #### L [id number] #### [facility] ([facility]) [address] [place] [address] MAGNESIUMon 04-27-2023 Magnesium [Mass/Vol] 1.3 mg/dL Low 1.9-2.7 [facility] Comment on above: Performed By: #### L [id number] #### [facility] ([facility]) [address] [place] [address] NURSNOTEon 04-27-2023 NURSNOTE Nurse informed pili davis work In regards to APS being called on pt prior to admission to [facility]. Social currently looking into it for any need for plan or action. [facility] NURSNOTE Nurse informed pili davis work In regards to APS being called on pt prior to admission to [facility]. Social currently looking into it for any need for plan or action. [facility] NURSNOTE Call to lab regardin g Heparin level drawn at 2346. Per lab, sample currently spinning and will have results in approximately 15 minutes. [facility] NURSNOTE Lab called regarding missing Heparin level ordered for 2100. Per lab, will send nursery attendant to draw now. [facility] POCT GLUCOSE METER UNSOLICIT ED RESULTSon 04-27-2023 Glucose [Mass/Vol] 174 mg/dL High 70-105 [facility] Comment on above: Order Comment: Waive d Testing in the ED is performed under the ED CLIA certificate #[id number]. Result Comment: [email or web address] Performed By: #### L [id number] #### [facility] ([facility]) [address] [place] [address] Glucose [Mass/Vol] 235 mg/dL High 70-105 [facility] Comment on above: Order Comment: Waive d Testing in the ED is performed under the ED CLIA certificate #[id number]. Result Comment: acar [email or web address] Performed By: #### L [id number] ####[facility] ([facility])[address] [place] [address] Glucose [Mass/Vol] 134 mg/dL High 70-105 [facility] Comment on above: Order Comment: Waive d Testing in the ED is performed under the ED CLIA certificate #[id number]. Result Comment: acar r12 Performed By: #### L [id number] ####[facility] ([facility])[address] [place] [address] Glucose [Mass/Vol] 129 mg/dL High 70-105 [facility] Comment on above: Order Comment: Waive d Testing in the ED is performed under the ED CLIA certificate #[id number]. Result Comment: [email or web address] Performed By: #### L [id number] ####[facility] ([facility])[address] [place] [address] Glucose [Mass/Vol] 175 mg/dL High 70-105 [facility] Comment on above: Order Comment: Waive d Testing in the ED is performed under the ED CLIA certificate #[id number]. Result Comment: tash [email or web address] Performed By: #### L [id number] ####[facility] ([facility])[address] [place] [address] TROPONIN Ion 04-27-2023 Troponin I.cardiac [Mass/Vol] 1.17 ng/mL Critically high 0.00-0.04 [facility] Comment on above: Result Comment: Prev ious result verified on 04/27/2023 0213 on specimen/case [id number] called with component Troponin I for procedure Troponin I with value 1.59 ng/mL. Performed By: #### L [id number] #### [facility] ([facility]) [address] [place] [address] Troponin I.cardiac [Mass/Vol] 1.59 ng/mL Critically high 0.00-0.04 [facility] Comment on above: Result Comment: Prev ious result verified on 04/26/2023 1845 on specimen/case [id number] called with component Troponin I for procedure Troponin I with value 2.45 ng/mL. Performed By: #### L [id number] #### [facility] ([facility]) [address] [place] [address] 30on 04-26-2023 30 Problem: Pain - Adul t Goal: Verbalizes/displays adequate comfort level or baseline comfort level Outcome: Progressing Problem: Safety - Adult Goal: Free from fall injury Outcome: Progressing Problem: Discharge Planning Goal: Discharge to home or other facility with appropriate resources Outcome: Progressing Flowsheets (Taken 04/26/20231922) Discharge to home or other facility with appropriate resources: Identify barriers to discharge with patient and caregiver Arrange for needed discharge resources and transportation as appropriate Identify discharge learning needs (meds, wound care, etc) Refer to discharge planning if patient needs post-hospital services based on physician order or complex needs related to functional status, cognitive ability or social support system Problem: Chronic Conditions and Co-morbidities Goal: Patient's chronic conditions and co-morbidity symptoms are monitored and maintained or improved Outcome: Progressing Flowsheets (Taken 04/26/20231922) Care Plan - Patient's Chronic Conditions and Co-Morbidity Symptoms are Monitored and Maintained or Improved: Monitor and assess patient's chronic conditions and comorbid symptoms for stability, deterioration, or improvement Collaborate with multidisciplinary team to address chronic and comorbid conditions and prevent exacerbation or deterioration Update acute care plan with appropriate goals if chronic or comorbid symptoms are exacerbated and prevent overall improvement and discharge Problem: Neurosensory - Adult Goal: Achieves stable or improved neurological status Outcome: Progressing Problem: Respiratory - Adult Goal: Achieves optimal ventilation and oxygenation Outcome: Progressing Problem: Cardiovascular - Adult Goal: Maintains optimal cardiac output and hemodynamic stability Outcome: Progressing Problem: Skin/Tissue Integrity - Adult Goal: Skin integrity remains intact Outcome: Progressing Problem: Musculoskeletal - Adult Goal: Return mobility to safest level of function Outcome: Progressing Problem: Gastrointestinal - Adult Goal: Maintains adequate nutritional intake Outcome: Progressing Problem: Genitourinary - Adult Goal: Urinary catheter remains patent Outcome: Progressing Problem: Infection - Adult Goal: Absence of infection at discharge Outcome: Progressing Problem: Metabolic/Fluid and Electrolytes - Adult Goal: Electrolytes maintained within normal limits Outcome: Progressing Problem: Hematologic - Adult Goal: Maintains hematologic stability Outcome: Progressing The patient is Moderately Stable - Low risk of patient condition declining or worsening The patient's goals for the shift include The clinical goals for the shift include monitor labs/vitals Normal [facility] APTTon 04-26-2023 ACTIVATED PARTIAL THROMBOPLASTIN TIME IN PPP BY COAGULATION ASSAY 65.1 Seconds High 25.0-35.0 [facility] Comment on above: Order Comment: Basel ine aPTT before initiating heparin infusion. Result Comment: Clin ical significance of the APTT is questionable in the presence of heparin. Performed By: #### L [id number] #### [facility] ([facility]) [address] [place] [address] BILIRUBIN, DIRECTon 04-26-20 Magnesium [Mass/Vol] 0.1 mg/dL Normal 0-0.2 [facility] Comment on above: Performed By: #### L [id number] #### [facility] ([facility]) [address] [place] [address] CBC WITH AUTO DIFFERENTIALon 04-26-2023 Basophils (Bld) [#/Vol] 0.04 10*3/uL Normal 0.00-0.20 [facility] Comment on above: Performed By: #### L [id number] #### [facility] ([facility]) [address] [place] [address] Basophils/100 WBC (Bld) 0.6 % Normal 0.0-1.0 [facility] Comment on above: Performed By: #### L [id number] #### [facility] ([facility]) [address] [place] [address] Eosinophils (Bld) [#/Vol] 0.24 10*3/uL Normal 0.00-0.50 [facility] Comment on above: Performed By: #### L [id number] #### [facility] ([facility]) [address] [place] [address] Eosinophils/100 WBC (Bld) 3.3 % Normal 0.0-6.0 [facility] Comment on above: Performed By: #### L [id number] #### [facility] ([facility]) [address] [place] [address] Erythrocyte distribution width (RBC) [Ratio] 13.7 % Normal 11.5-15.0 [facility] Comment on above: Performed By: #### L [id number] #### [facility] ([facility]) [address] [place] [address] ERYTHROCYTE MEAN CORPUSCULAR HEMOGLOBIN CONCENTRATION (G/DL) BY AUTOMATED 33.7 g/dL Normal 32.0-35.0 [facility] Comment on above: Performed By: #### L [id number] #### [facility] ([facility]) [address] [place] [address] Hematocrit (Bld) [Volume fraction] 35.6 % Low 36.0-48.0 [facility] Comment on above: Performed By: #### L [id number] #### [facility] ([facility]) [address] [place] [address] Hemoglobin (Bld) [Mass/Vol] 12.0 g/dL Normal 12.0-15.0 [facility] Comment on above: Performed By: #### L [id number] #### [facility] ([facility]) [address] [place] [address] Immature granulocytes (Bld) [#/Vol] 0.07 10*3/uL Normal 0.00-0.20 [facility] Comment on above: Performed By: #### L [id number] #### [facility] ([facility]) [address] [place] [address] Immature granulocytes/100 WBC (Bld) 1.0 % Normal 0.0-1.0 [facility] Comment on above: Performed By: #### L [id number] #### [facility] ([facility]) [address] [place] [address] Lymphocytes (Bld) [#/Vol] 1.66 10*3/uL Normal 1.20-4.00 [facility] Comment on above: Performed By: #### L [id number] #### [facility]) [address] [place] [address] Lymphocytes/100 WBC (Bld) 23.0 % Normal 20.0-45.0 [facility] Comment on above: Performed By: #### L [id number] #### [facility] ([facility]) [address] [place] [address] MCH (RBC) [Entitic mass] 28.6 pg Normal 27.0-33.0 [facility] Comment on above: Performed By: #### L [id number] #### [facility] ([facility]) [address] [place] [address] MCV (RBC) [Entitic vol] 84.8 fL Normal 82.0-98.0 [facility] Comment on above: Performed By: #### L [id number] #### [facility] ([facility]) [address] [place] [address] Monocytes (Bld) [#/Vol] 0.83 10*3/uL Normal 0.10-1.00 [facility] Comment on above: Performed By: #### L [id number] #### [facility] ([facility]) [address] [place] [address] Monocytes/100 WBC (Bld) 11.5 % Normal 5.0-12.0 [facility] Comment on above: Performed By: #### L [id number] #### [facility] ([facility]) [address] [place] [address] Neutrophils (Bld) [#/Vol] 4.37 10*3/uL Normal 1.60-7.60 [facility] Comment on above: Performed By: #### L [id number] #### [facility] ([facility]) [address] [place] [address] Neutrophils/100 WBC (Bld) 60.6 % Normal 40.0-72.0 [facility] Comment on above: Performed By: #### L [id number] #### [facility] ([facility]) [address] [place] [address] NRBC (PER 100 WBCS) BY AUTOMATED COUNT 0.0 % Normal 0 [facility] Comment on above: Performed By: #### L [id number] #### [facility] ([facility]) [address] [place] [address] PLATELETS (10*3/UL) IN BLOOD AUTOMATED COUNT 301 10*3/uL Normal 150-400 [facility] Comment on above: Performed By: #### L [id number] #### [facility] ([facility]) [address] [place] [address] RBC (Bld) [#/Vol] 4.20 10*6/uL Normal 3.80-5.00 [facility] Comment on above: Performed By: #### L [id number] #### [facility] ([facility]) [address] [place] [address] WBC (Bld) [#/Vol] 7.21 10*3/uL Normal 4.00-10.60 [facility] Comment on above: Performed By: #### L [id number] #### [facility] ([facility]) [address] [place] [address] [facility] CREATINE KINASE (U/L) IN SER/PLAS 396.0 U/L High 30.0-223.0 [facility] Comment on above: Performed By: #### L [id number] #### [facility] ([facility]) [address] [place] [address] COMPREHENSIVE METABOLIC PANE Cedric 04-26-2023 Albumin [Mass/Vol] 3.0 g/dL Low 3.5-5.7 [facility] Comment on above: Performed By: #### L [id number] #### [facility] ([facility]) [address] [place] [address] ALP [Catalytic activity/Vol] 63 U/L Normal 34-104 [facility] Comment on above: Performed By: #### L [id number] #### [facility] ([facility]) [address] [place] [address] ALT [Catalytic activity/Vol] 17 U/L Normal 7-52 [facility] Comment on above: Performed By: #### L [id number] #### [facility] ([facility]) [address] [place] [address] Anion gap [Moles/Vol] 10 mmol/L Normal 7-20 [facility] Comment on above: Performed By: #### L [id number] #### [facility] ([facility]) [address] [place] [address] AST [Catalytic activity/Vol] 41 U/L High 13-39 [facility] Comment on above: Performed By: #### L [id number] #### [facility] ([facility]) [address] [place] [address] Bilirubin [Mass/Vol] 0.3 mg/dL Normal 0.3-1.0 [facility] Comment on above: Performed By: #### L [id number] #### [facility] ([facility]) [address] [place] [address] Calcium [Mass/Vol] 8.4 mg/dL Low 8.6-10.3 [facility] Comment on above: Performed By: #### L [id number] #### [facility] ([facility]) [address] [place] [address] Chloride [Moles/Vol] 110 mmol/L High 98-107 [facility] Comment on above: Performed By: #### L [id number] #### [facility] ([facility]) [address] [place] [address] CO2 [Moles/Vol] 25 mmol/L Normal 21-31 [facility] Comment on above: Performed By: #### L [id number] #### [facility] ([facility]) [address] [place] [address] Creatinine [Mass/Vol] 0.70 mg/dL Normal 0.60-1.20 [facility] Comment on above: Performed By: #### L [id number] #### [facility] ([facility]) [address] [place] [address] GLOMERULAR FILTRATION RATE ML/MIN/1.73 SQ M.PREDICTED 94.7 mL/min/1.73m*2 Normal >60.0 [facility] Comment on above: Result Comment: The [facility]???s estimated glomerular filtration rate (eGFR) will no longer include consideration of race in its calculation. The National Kidney Foundation???s eGFR Task Force developed new recommendations for the estimation of the glomerular filtration rate in the [place] They recommend immediate implementation of the new equation refit without the race variable in all laboratories because the calculation does not include race. In addition to not including race in the calculation and reporting, it included diversity in its development, and has acceptable performance characteristics and potential consequences that do not disproportionately affect any one group of individuals. Performed By: #### L [id number] #### [facility] ([facility]) [address] [place] [address] Glucose [Mass/Vol] 75 mg/dL Normal 70-100 [facility] Comment on above: Performed By: #### L [id number] #### [facility] ([facility]) [address] [place] [address] Potassium [Moles/Vol] 3.5 mmol/L Normal 3.5-5.1 [facility] Comment on above: Performed By: #### L [id number] #### [facility] ([facility]) [address] [place] [address] Protein [Mass/Vol] 5.6 g/dL Low 6.0-8.3 [facility] Comment on above: Performed By: #### L [id number] #### [facility] ([facility]) [address] [place] [address] Sodium [Moles/Vol] 141 mmol/L Normal 136-145 [facility] Comment on above: Performed By: #### L [id number] #### [facility] ([facility]) [address] [place] [address] Urea nitrogen [Mass/Vol] 12 mg/dL Normal 7-25 [facility] Comment on above: Performed By: #### L [id number] #### [facility] ([facility]) [address] [place] [address] UREA NITROGEN/CREATININE (MASS RATIO) IN SER/PLAS 17.1 Normal [facility] Comment on above: Performed By: #### L [id number] #### [facility] ([facility]) [address] [place] [address] CONSULTon 04-26-2023 CONSULT ------ -- Attestation signed by Ofe Little MD at 05/11/2023 11:56 AM I personally saw and examined the patient on the same date of service as the fellow. I discussed the findings and therapeutic plan with the fellow. Plan of care was discussed with patient, and patient is agreeable with plan. I agree with the documentation, except for any edits/updates below. Teaching Physician's Revisions: none Ofe Little MD [place] [facility] -- Reason For Consult NSTEMI, direct transfer, communicated earlier [employer], 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 female who was admittied initailly at [facility] for NSTEMI. PMHx of CAD s/p CABG x4 (PARKER-LAD, L radial-OM 1, SVG-OM2, SVG-PDA) in 05/07/2017, HLD, smoker, HFmrEF, unable to reliably assess NYHA at this point, diabetes mellitus. Patient had initially presented to [facility] by ambulance after he was found on floor yesterday on 04/25 where he has she has been lying for a few days in her stool per report. Patient is poor historian and not able to participate in interview. Per report, on arrival, patient was altered, underwent trauma work-up which was within normal limits. Over at at the facility on arrival, she was noted to have rhabdomyolysis, suspected UTI and hypoglycemia and initial troponin was slightly elevated, and high sensitive troponin increased from 100 to over 1000. Patient was admitted at their facility for IV resuscitation, started on empiric Rocephin and troponin curve was trended. Patient denies any chest pain or any symptoms associated with her symptoms. She was started on aspirin and heparin drip was commenced. Additionally, patient had episode of hypoglycemia in the hospital over there with dropping as low as 30s and subsequently started on a dextrose drip. Per report, patient has history of noncompliance to her medications and has a very difficult poor living situation and EMS has called Adult Protective Services multiple times for this patient in the past. EKG on admission Showed Sinus Rhythm with Occasional PVCs, poor R progression from V1 to V3, nonspecific T wave abnormality. Echo w/ Global left ventricular systolic function is severely reduced. The EF is 30 % visually. K 3.5, Mg 0.6, trop 2.45, CK 396, Cr 0.7. CXR w/o acute changes. Home meds include: Aspirin 325, atorvastatin 80, Plavix 75, Lasix 20 as needed, lisinopril 2.5, Lopressor 25, Januvia 100, metformin 1000 twice daily Past Medical History She has no past medical history on file. Surgical History She has no past surgical history on file. Family History No family history on file. Social History She reports that she has never smoked. She has never used smokeless tobacco. She reports that she does not currently use alcohol. She reports that she does not use drugs. Allergies Adhesive, Hydrocodone bitartrate, and Hydrocodone-acetaminophen Medications Medications Prior to Admission Medication Sig Dispense Refill Last Dose aspirin 325 mg tablet in the morning. Unknown atorvastatin (Lipitor) 80 mg tablet Take 80 mg by mouth in the morning. Unknown citalopram (CeleXA) 20 mg tablet Take 40 mg by mouth in the morning. Unknown clopidogrel (Plavix) 75 mg tablet Take 75 mg by mouth in the morning. Unknown furosemide (Lasix) 20 mg tablet Take 20 mg by mouth if needed. Unknown gabapentin (Neurontin) 300 mg capsule Take 300 mg by mouth in the morning, at noon, and at bedtime. Unknown insulin glargine (Lantus) 100 unit/mL injection Inject 60 Units under the skin in the morning and at bedtime. Unknown Januvia 100 mg tablet Take 100 mg by mouth in the morning. Unknown lisinopril 2.5 mg tablet Take 2.5 mg by mouth in the morning. Unknown metFORMIN (Glucophage) 1,000 mg tablet Take 1,000 mg by mouth with breakfast and with evening meal. metoprolol tartrate (Lopressor) 25 mg tablet Take 12.5 mg by mouth in the morning and at bedtime. Unknown omeprazole (PriLOSEC) [address] capsule Take 40 mg by mouth before breakfast. Do not crush or chew. Unknown Active Hospital Medications Medication Dose Route Frequency Last Admin [START ON 04/27/2023] aspirin 81 mg oral Daily cefTRIAXone 1 g intravenous q24h Stopped at 04/26/23 1606 [START ON 04/27/2023] clopidogrel 75 mg oral Daily D5 % and 0.9 % sodium chloride 75 mL/hr intravenous Continuous 75 mL/hr at 04/26/23 1501 glucose 24 g oral PRN 24 g at 04/26/23 1510 Or dextrose 50 % in water (D50W) 25 g intravenous PRN heparin 0-28 Units/kg/hr intravenous Continuous 15 Units/kg/hr at 04/26/23 1501 insulin aspart 0-20 Units subcutaneous q6h magnesium sulfate 1 g intravenous q1h metoprolol tartrate 12.5 mg oral BID pantoprazole 40 mg intravenous q24h KAYLYN 40 mg at 04/26/23 1537 sodium chloride 10 mL intravenous q8h PRN (more content not included)... Normal [facility] HEMOGLOBIN A1Con 04-26-2023 Glucose [Mass/Vol] 212 mg/dL [facility] Comment on above: Performed By: #### L [id number] #### [facility] ([facility]) [address] [place] [address] HbA1c (Bld) [Mass fraction] 9.0 % High 4.0-6.0 [facility] Comment on above: Performed By: #### L [id number] #### [facility] ([facility]) [address] [place] [address] HEPARIN LEVELon 04-26-2023 HEPARIN UNFRACTIONATED (U/ML) IN PPP BY CHROMOGENIC METHOD 0.27 IU/mL Low 0.3-0.7 [facility] Comment on above: Order Comment: Basel ine aPTT before initiating heparin infusion. Result Comment: Jolanta roxaban and Apixaban will interfere with the anti Xa assay used to monitor UFH and LMWH. Performed By: #### L [id number] #### [facility] ([facility]) [address] [place] [address] LIPID PANELon 04-26-2023 CHOL/HDL 2.5 mg/dL Normal [facility] Comment on above: Performed By: #### L [id number] #### [facility] ([facility]) [address] [place] [address] Cholesterol [Mass/Vol] 85 mg/dL Low 120-200 [facility] Comment on above: Performed By: #### L [id number] #### [facility] ([facility]) [address] [place] [address] Magnesium [Mass/Vol] 67 mg/dL Normal 40-149 [facility] Comment on above: Result Comment: TRIG LYCERIDE REFERENCE RANGE: 20 YEARS AND OLDER CARDIOVASCULAR RISK LESS THAN 150 mg/dL LOW RISK 150 TO 199 mg/dL BORDERLINE RISK 200 mg/dL AND GREATER HIGH RISK Performed By: #### L [id number] #### [facility] ([facility]) [address] [place] [address] Magnesium [Mass/Vol] 38 mg/dL Normal 0-160 [facility] Comment on above: Performed By: #### L [id number] #### [facility] ([facility]) [address] [place] [address] Magnesium [Mass/Vol] 34 mg/dL Normal 23-92 [facility] Comment on above: Performed By: #### L [id number] #### [facility] ([facility]) [address] [place] [address] NON HDL CHOL. (LDL+VLDL) 51 Normal [facility] Comment on above: Performed By: #### L [id number] #### [facility] ([facility]) [address] [place] [address] TOTAL VLDL-C 13 mg/dL Normal 0-40 [facility] Comment on above: Performed By: #### L [id number] #### [facility] ([facility]) [address] [facility] [facility] [place] [address] MAGNESIUMon 04-26-2023 Magnesium [Mass/Vol] 0.6 mg/dL Invalid Interpretation Code 1.9-2.7 [facility] Comment on above: Performed By: #### L [id number] #### [facility] ([facility]) [address] [facility] [place] [address] NURSNOTEon 04-26-2023 NURSNOTE Critical trop 2.45 a nd mag 0.6 reported by lab, admitting MD made aware. No current orders. Normal [facility] NURSNOTE Labs ordered at 1400 , nurse called lab x4 as no current labs completed. Nurse assured labs will be drawn shortly. Normal [facility] POCT GLUCOSE METER UNSOLICIT ED RESULTSon 04-26-2023 Glucose [Mass/Vol] 78 mg/dL Normal 70-105 [facility] Comment on above: Order Comment: Waive d Testing in the ED is performed under the ED CLIA certificate #[id number]. Result Comment: [email or web address] [email or web address] Performed By: #### L [id number] #### [facility] ([facility]) [address] [place] [address] Glucose [Mass/Vol] 70 mg/dL Normal 70-105 [facility] Comment on above: Order Comment: Waive d Testing in the ED is performed under the ED CLIA certificate #[id number]. Result Comment: [email or web address] [email or web address] Performed By: #### L [id number] #### [facility] ([facility]) [address] [place] [address] Glucose [Mass/Vol] 62 mg/dL Low 70-105 [facility] Comment on above: Order Comment: Waive d Testing in the ED is performed under the ED CLIA certificate #[id number]. Result Comment: [email or web address] [email or web address] Performed By: #### L [id number] ####[facility] ([facility])[address] [place] [address] TROPONIN Ion 04-26-2023 Troponin I.cardiac [Mass/Vol] 2.45 ng/mL Critically high 0.00-0.04 [facility] Comment on above: Performed By: #### L [id number] #### [facility] ([facility]) [address] [place] [address] TSH3 REFLEX TO FT4on 023 THYROTROPIN (MIU/L) IN SER/PLAS BY DETECTION LIMIT <= 0.05 MIU/L 1.82 mIU/L Normal 0.34-5.60 [facility] Comment on above: Performed By: #### L [id number] #### [facility] ([facility]) [address] [place] [address] Basic Metabolic Panelon 02-21 Anion gap [Moles/Vol] 9 mmol/L 9 - 17 mmol/L [facility] Calcium [Mass/Vol] 8.8 mg/dL 8.6 - 10. 4 mg/dL [facility] Chloride [Moles/Vol] 106 mmol/L 98 - 10 7 mmol/L [facility] CO2 [Moles/Vol] 25 mmol/L 20 - 31 mmol/L [facility] Creatinine [Mass/Vol] 0.83 mg/dL 0.50 - 0.90 mg/dL [facility] GFR/1.73 sq M.predicted MDRD (S/P/Bld) [Vol rate/Area] - [facility]F [facility] Comment on above: These results are not intended for use in patients <18 years of age. eGFR results are calculated without a race factor using the 2020 CKD-EPI equation. Careful clinical correlation is recommended, particularly when comparing to results calculated using previous equations. The CKD-EPI equation is less accurate in patients with extremes of muscle mass, extra-renal metabolism of creatine, excessive creatine ingestion, or following therapy that affects renal tubular secretion. Glucose [Mass/Vol] 152 mg/dL High 70 - 99 mg/dL [facility] [employer] Interpretation and review of laboratory results Abnormal [facility] Potassium [Moles/Vol] 4.9 mmol/L 3.7 - 5.3 mmol/L [facility] Sodium [Moles/Vol] 140 mmol/L 135 - 144 mmol/L [facility] Urea nitrogen [Mass/Vol] 15 mg/dL 8 - 23 mg/dL [facility] Urea nitrogen/Creatinine [Mass ratio] 18 mg/mg 9 - 20 [facility] CBC with Auto Differentialon 03-11-2023 Basophils (Bld) [#/Vol] 0.04 10*3/uL [facility] Basophils/100 WBC (Bld) 0 % 0 - 2 % [facility] Eosinophils (Bld) [#/Vol] 0.17 10*3/uL [facility] Eosinophils/100 WBC (Bld) 2 % 1 - 4 % [facility] Erythrocyte distribution width (RBC) [Ratio] 13.2 % 11.8 - 14.4 % [facility] Hematocrit (Bld) [Volume fraction] 38.5 % 36.3 - 47.1 % [facility] Hemoglobin (Bld) [Mass/Vol] 12.5 g/dL 11.9 - 15.1 g/dL [facility] Immature granulocytes (Bld) [#/Vol] 0.10 10*3/uL [facility] Immature granulocytes/100 WBC (Bld) 1 % High 0 [facility] Interpretation and review of laboratory results Abnormal [facility] Lymphocytes/100 WBC (Bld) 19 % Low 24 - 43 % [facility] Lymphocytes/100 WBC (Bld) 1.88 % [facility] MCH (RBC) [Entitic mass] 29.1 pg 25.2 - 33.5 pg [facility] MCHC (RBC) [Mass/Vol] 32.5 g/dL 28.4 - 34.8 g/dL [facility] MCV (RBC) [Entitic vol] 89.7 fL 82.6 - 102.9 fL [facility] Monocytes/100 WBC (Bld) 9 % 3 - 12 % [facility] Monocytes/100 WBC (Bld) 0.90 % [facility] Neutrophils/100 WBC (Bld) 69 % High 36 - 65 % [facility] NRBC Automated 0.0 0.0 per 100 WBC [facility] Platelet mean volume (Bld) [Entitic vol] 10.2 fL 8.1 - 13.5 fL [facility] Platelets (Bld) [#/Vol] 327 10*3/uL [facility] RBC (Bld) [#/Vol] 4.29 10*6/uL 3.95 - 5.1 1 m/uL [facility] Segmented neutrophils/100 WBC (Bld) 6.72 % [facility] WBC other (Bld) [#/Vol] 9.8 [facility] Microscopic Urinalysison Bacteria LM Ql (Urine sed) 3+ Abnormal None [facility] Epithelial cells LM.HPF (Urine sed) [#/Area] 10 TO 20 [facility] Interpretation and review of laboratory results Abnormal [facility] RBC LM.HPF (Urine sed) [#/Area] 0 TO 2 [facility] WBC LM.HPF (Urine sed) [#/Area] 10 TO 20 [facility] Urinalysis with Reflex to Cu ltureon 03-11-2023 Bilirubin Ql (U) Negative NEGATIVE [facility] Clarity (U) Clear Clear [facility] Color (U) Yellow Yellow [facility] Glucose Test strip (U) [Mass/Vol] Negative NEGATIVE [facility] Hemoglobin Auto test strip Ql (U) Negative NEGATIVE [facility] Interpretation and review of laboratory results Abnormal [facility] Ketones (U) [Mass/Vol] Negative NEGATIVE [facility] Leukocyte esterase Test strip Ql (U) MODERATE Abnormal NEGATIVE [facility] Nitrite Ql (U) Positive Abnormal NEGATIVE [facility] pH (U) 7.5 [pH] 5.0 - 9.0 [facility] Protein (U) [Mass/Vol] 1+ Abnormal NEGATIVE [facility] Specific gravity (U) [Rel density] 1.015 1.010 - 1.020 [facility] Urobilinogen Qn (U) Normal Normal [facility] Cult,Urineon 03-09-2023 Cult,Urine Specimen Description .URINE Culture NO SIGNIFICANT GROWTH Report Status FINAL 03/09/2023 Normal [facility] Comment on above: Performed By: #### U RC #### [facility] [address] [place] [address] Clerical Associate: Joey Aguilar MD Laboratory - Microbiology an d Antimicrobial susceptibilityon 03-07-2023 Bacteria identified Cx Nom (U) See Note [facility] Comment on above: Note: Specimen Descr iption .URINECulture NO SIGNIFICANT GROWTHReport Status FINAL 03/09/2023Responsible Observer: KALEB KLEIN ([id number]) No Panel Informationon 03-07 Reported Physicians See Note [facility] Comment on above: Note: Reported Physi cians:Ordering: Sonya PosadaAttending: Hayley PosadaieReferring: Sonya Posada CT CSPINE WO CONon CT CSPINE WO CON Normal [facility] CT HEAD WO CONon 01-10-2023 CT HEAD WO CON Normal [facility] POINT OF CARE GLUCOSEon 12-23 Glucose [Mass/Vol] 177 mg/dL Critically high 74-[address] [facility] Comment on above: Performed By: #### P OCGLUC ####[facility] [address] [place], [place] [address]Sp. Antonella Medrano XR KNEE RT 3Von 01-10-2023 XR KNEE RT 3V Normal [facility] XR WRIST LT MIN 3 Von 2022 XR WRIST LT MIN 3 V Normal [facility] CBC AUTO DIFFon 01-06-2023 BASO # 0.0 103/ul Normal 0.0-0.1 [facility] Comment on above: Performed By: #### C BC ####[facility] [address] [place], [place] [address]Nv. Antonella Medrano Basophils/100 WBC (Bld) 0.4 % Normal 0.2-2.0 [facility] Comment on above: Performed By: #### C BC ####[facility] [address] [place] [id number]. Antonella Medrano EO # 0.2 103/ul Normal 0.0-0.[address] [facility] Comment on above: Performed By: #### C BC ####[facility] [address] [place] [id number]. Antonella Medrano Eosinophils/100 WBC (Bld) 1.8 % Normal 0.9-7.[address] [facility] Comment on above: Performed By: #### C BC ####[facility] [address] [place], [place] [address]Dr. Antonella Medrano Erythrocyte distribution width (RBC) [Ratio] 13.9 % Normal 11.0-15.[address] [facility] Comment on above: Performed By: #### C BC ####[facility] [address] [place], [place] [address]Dr. Antonella Medrano Hematocrit (Bld) [Volume fraction] 36.0 % Normal 36.0-48.[address] [facility] Comment on above: Performed By: #### C BC ####[facility] [address] [place], [place] [address]Dr. Antonella Medrano Hemoglobin (Bld) [Mass/Vol] 12.2 g/dL Normal 12.0-16.[address] [facility] Comment on above: Performed By: #### C BC ####[facility] [address] [place], [place] [address]Dr. Antonella Medrano IG # 0.12 10e3/ul Critically high 0.00-0.[address] [facility] Comment on above: Performed By: #### C BC ####[facility] [address] [place], [place] [address]Dr. Antonella Medrano IG % 1.3 % Critically high 0.0-0.[address] [facility] Comment on above: Performed By: #### C BC ####[facility] [address] [place], [place] [address]Dr. Antonella Medrano LYMPH # 2.3 103/ul Normal 1.2-3.[address] [facility] Comment on above: Performed By: #### C BC ####[facility] [address] [place] [id number]. Antonella Mitchell Lymphocytes/100 WBC (Bld) 25.8 % Normal 20.5-60.[address] [facility] Comment on above: Performed By: #### C BC ####[facility] [address] [place] [id number]. Antonella Medrano MANUAL DIFF REQ NO Normal [facility] Comment on above: Performed By: #### C BC ####[facility] [address] [place] [address]Dr. Mariafilemon Medrano MCH (RBC) [Entitic mass] 30.0 pg Normal 26.7-34.[address] [facility] Comment on above: Performed By: #### C BC ####[facility] [address] [place] [address]Dr. Mariafilemon Medrano MCHC (RBC) [Mass/Vol] 33.9 g/dL Normal 29.9-35.[address] [facility] Comment on above: Performed By: #### C BC ####[facility] [address] [place] [address]Dr. Mariafilemon Medrano MCV (RBC) [Entitic vol] 88.5 fL Normal 81.0-99.[address] [facility] Comment on above: Performed By: #### C BC ####[facility] [address] [place] [address]Dr. Antonella Medrano MONO # 1.0 103/ul Critically high 0.3-0.[address] [facility] Comment on above: Performed By: #### C BC ####[facility] [address] [place] [id number]. Antonella Medrano Monocytes/100 WBC (Bld) 10.6 % Normal 1.7-12.[address] [facility] Comment on above: Performed By: #### C BC ####[facility] [address] [place], [place] [address]Dr. Antonella Medrano NEUT # 5.4 103/ul Normal 1.4-6.[address] [facility] Comment on above: Performed By: #### C BC ####[facility] [facility] [address]vig[address] [place] [id number]. Antonella Medrano Neutrophils/100 WBC (Bld) 60.1 % Normal 43.0-75.[address] [facility] Comment on above: Performed By: #### C BC ####[facility] Artucyffem[address] [place] [id number]. Antonella Medrano Platelet mean volume (Bld) [Entitic vol] 10.6 fL Normal 9.5-13.[address] [facility] Comment on above: Performed By: #### C BC ####[facility] Awriwhuaot6[address] [place] [id number]. Antonella Mitchell PLT 306 103/ul Normal 150-[address] [facility] Comment on above: Performed By: #### C BC ####[facility] Eeksjiuvrg[address] [place] [address]Dr. Antonella Medrano RBC 4.07 106/ul Critically low 4.20-5.40 [facility] Comment on above: Performed By: #### C BC ####[facility] Ooizqqcvmi6[address] [place] [id number]. Antonella Medrano WBC 9.0 103/ul Normal 4.0-11.0 [facility] Comment on above: Performed By: #### C BC ####[facility] Bkrrdijdsf[address] [place] [address]DrGerman Antonella Mitchell CT CSPINE WO CONon 3 CT CSPINE WO CON Normal [facility] POINT OF CARE GLUCOSEon 12-22 Glucose [Mass/Vol] 101 mg/dL Normal 74-106 [facility] Comment on above: Performed By: #### P OCGLUC ####[facility] Azqcifnlkm6208 [place] [address]DrGerman Medrano PROF 14(COMP METB)on 023 Albumin [Mass/Vol] 2.7 g/dL Critically low 3.4-5.0 [facility] Comment on above: Performed By: #### C MP, HSTROPN ####[facility] Sabzrvrnkh[address] [place] [address]Dr. Antonella Medrano Albumin/Globulin [Mass ratio] 0.8 {ratio} Normal [facility] Comment on above: Performed By: #### C MARLEY HSTROPN ####[facility] Gbjhkarldz[address] [place] [address]Dr. Mariafilemon Medrano ALP [Catalytic activity/Vol] 95 U/L Normal 46-[address] [facility] Comment on above: Performed By: #### C MARLEY, HSTROPN ####[facility] Sphokzuqgs[address] [place] [address]Dr. Mariafilemon Medrano ALT [Catalytic activity/Vol] 15 U/L Normal 14-59 [facility] Comment on above: Performed By: #### C MARLEY HSTROPN ####[facility] Qykatvfukp[address] [place] [address]Dr. Antonella Medrano Anion gap [Moles/Vol] 12.9 mmol/L Normal [facility] Comment on above: Performed By: #### C MARLEY HSTROPN ####[facility] Mbcdrilazp[address] [place], [place] [address]Dr. Mariafilemon Medrano AST [Catalytic activity/Vol] 13 U/L Critically low 15-[address] [facility] Comment on above: Performed By: #### C MARLEY, HSTROPN ####[facility] Ncvnycqveb[address] [place] [address]Dr. Antonella Medrano Bilirubin [Mass/Vol] 0.2 mg/dL Normal 0.2-1.0 [facility] Comment on above: Performed By: #### C MARLEY HSTROPN ####[facility] Zfhfjrlqrk[address] [place] [address]Dr. Antonella Medrano Calcium [Mass/Vol] 8.6 mg/dL Normal 8.5-10.[address] [facility] Comment on above: Performed By: #### C MARLEY, HSTROPN ####[facility] Ebtdxcwqrq8[address] [place] [address]Dr. Antonella Medrano Chloride [Moles/Vol] 106 mmol/L Normal 98-[address] [facility] Comment on above: Performed By: #### C MARLEY HSTROPN ####[facility] Avfbpiuwox64[address] [place] [address]Dr. Antonella Medrano CO2 [Moles/Vol] 28.1 mmol/L Normal 21.0-32.[address] [facility] Comment on above: Performed By: #### C MP, HSTROPN ####[facility] Iqhrfybbhi4[address] [place] [address]Dr. Antonella Medrano Creatinine [Mass/Vol] 1.05 mg/dL Critically high 0.55-1.[address] [facility] Comment on above: Performed By: #### C MP, HSTROPN ####[facility] Phorygnaoi[address] [place] [address]Dr. Antonella Medrano EGFR-AF FAROESE >60 Normal >=[address] [facility] Comment on above: Performed By: #### C MP, HSTROPN ####[facility] Bihnkqqsta[address] [place] [address]Dr. Antonella Medrano EGFR-NON AF FAROESE 52 mL/min/1.73m2 Critically low >=[address] [facility] Comment on above: Performed By: #### C MP, HSTROPN ####[facility] Eaalehtynk[address] [place], [place] [address]Dr. Antonella Medrano Globulin (S) [Mass/Vol] 3.5 g/dL Normal [facility] Comment on above: Performed By: #### C MP, HSTROPN ####[facility] Wencdaairr4[address] [place] [address]Dr. Antonella Medrano Glucose [Mass/Vol] 96 mg/dL Normal 74-[address] [facility] Comment on above: Performed By: #### C MP, HSTROPN ####[facility] Rhqslxyubd3433 [place] [address]Dr. Antonella Medrano Potassium [Moles/Vol] 4.0 mmol/L Normal 3.5-5.[address] [facility] Comment on above: Performed By: #### C MP, HSTROPN ####[facility] Prwqsaqngc6264 [place] [address]Dr. Antonella Medrano Protein [Mass/Vol] 6.2 g/dL Critically low 6.4-8.2 [facility] Comment on above: Performed By: #### C MARLEY, HSTROPN ####[facility] Ahubmzqsds[address] [place] [address]Dr. Antonella Medrano Sodium [Moles/Vol] 143 mmol/L Normal 136-[address] [facility] Comment on above: Performed By: #### C MARLEY, HSTROPN ####[facility] Chongjdaer[address] [place] [address]Dr. Mariafilemon Medrano Urea nitrogen [Mass/Vol] 22.0 mg/dL Critically high 7.0-18.0 [facility] Comment on above: Performed By: #### C MARLEY, HSTROPN ####[facility] Nugdhkzuvm44[address] [place] [address]Dr. Antonella Medrano Urea nitrogen/Creatinine [Mass ratio] 21.0 mg/mg Normal [facility] Comment on above: Performed By: #### C MARLEY, HSTROPN ####[facility] Cqcgilidqn5[address] [place] [address]Dr. Antonella Medrano TROPONIN, HIGH SENSITIVITYon 01-06-2023 HSTROP 48.1 pg/mL Normal 4.0-51.3 [facility] Comment on above: Result Comment: CUT- OFF POINTS HAVE BEEN ESTABLISHED BASED ON THE FOURTH UNIVERSAL DEFINITIONS OF MYOCARDIALINFARCTION. THE UPPER REFERENCE LIMIT (URL) OF TROPONIN, DEFINED THE 99TH PERCENTILE OFcTnI DISTRIBUTION IN A REFERENCE POPULATION, HAS BEEN CONFIRMED THE DECISION THRESHOLDFOR DC DIAGNOSIS. Performed By: #### C MARLEY, HSTROPN ####[facility] Yvmsvietev[address] [place] [address]Dr. Mariafilemon Medrano XR PELVIS 1_2 VIEWSon 2022 XR PELVIS 1_[address] [facility] XR SHOULDER LT 2V or >on XR SHOULDER LT 2V or > Normal [facility] CULTURE URINEon 01-03-2023 CULTURE URINE Culture Observations : GREATER THAN TWO ORGANISMS PRESENT. PLEASE RESUBMIT CLEAN CATCH MID-STREAM URINE IF CLINICALLY INDICATED. Normal [facility] Comment on above: Performed By: #### U RCX ####[facility] Jrioivlyrs65[address] [place] [id number]. Antonella Mitchell CBC AUTO DIFFon 01-02-2023 BASO # 0.0 103/ul Normal 0.0-0.1 [facility] Comment on above: Performed By: #### C BC ####[facility] Gzgfwemhfy88[address] [place] [id number]. Antonella Medrano Basophils/100 WBC (Bld) 0.4 % Normal 0.2-2.0 [facility] Comment on above: Performed By: #### C BC ####[facility] Eyfeibuzmy146[address] [place], [place] [address]Dr. Mariafilemon Medrano EO # 0.2 103/ul Normal 0.0-0.7 [facility] Comment on above: Performed By: #### C BC ####[facility] Zkkzjoxosb066[address] [place], [place] [address]Dr. Antonella Medrano Eosinophils/100 WBC (Bld) 3.0 % Normal 0.9-7.0 [facility] Comment on above: Performed By: #### C BC ####[facility] Akqjnlvnfx817[address] [place], [place] [address]Dr. Antonella Mitchell Erythrocyte distribution width (RBC) [Ratio] 14.0 % Normal 11.0-15.0 [facility] Comment on above: Performed By: #### C BC ####[facility] Ullrzvuhlf234[address] [place], [place] [address]Dr. Mariafilemon Medrano Hematocrit (Bld) [Volume fraction] 37.5 % Normal 36.0-48.0 [facility] Comment on above: Performed By: #### C BC ####[facility] Tbgntizyek[address] [place], [place] [address]Dr. Mariafilemon Medrano Hemoglobin (Bld) [Mass/Vol] 12.1 g/dL Normal 12.0-16.[address] [facility] Comment on above: Performed By: #### C BC ####[facility] Fzfmixamds45[address] [place], [place] [address]Dr. Antonella Medrano IG # 0.10 10e3/ul Critically high 0.00-0.03 [facility] Comment on above: Performed By: #### C BC ####[facility] Rkbmgtqzxb6198 [place] [address]Dr. Antonella Medrano IG % 1.3 % Critically high 0.0-0.5 [facility] Comment on above: Performed By: #### C BC ####[facility] Sunrpfidhs3[address] [place] [address]DrGerman Antonella Mitchell LYMPH # 2.1 103/ul Normal 1.2-3.8 [facility] Comment on above: Performed By: #### C BC ####[facility] Mlvmalgozd4016 [place] [address]DrGerman Mariafilemon Medrano Lymphocytes/100 WBC (Bld) 27.4 % Normal 20.5-60.0 [facility] Comment on above: Performed By: #### C BC ####[facility] Xunckomkcr7[address] [place], [place] [address]DrGerman Mariafilemon Medrano MANUAL DIFF REQ NO Normal [facility] Comment on above: Performed By: #### C BC ####[facility] Ijmvajifpy[address] [place], [place] [address]Dr. Antonella Mitchell MCH (RBC) [Entitic mass] 28.6 pg Normal 26.7-34.0 [facility] Comment on above: Performed By: #### C BC ####[facility] Yevmplhtxy[address] [place], [place] [address]Dr. Antonella Mitchell MCHC (RBC) [Mass/Vol] 32.3 g/dL Normal 29.9-35.2 [facility] Comment on above: Performed By: #### C BC ####[facility] Rjjvpwfeby[address] [place], [place] [id number] Antonella Mitchell MCV (RBC) [Entitic vol] 88.7 fL Normal 81.0-99.0 [facility] Comment on above: Performed By: #### C BC ####[facility] Kdxuhupied48[address] [place], [place] [address]DrGerman Medrano MONO # 0.7 103/ul Normal 0.3-0.[address] [facility] Comment on above: Performed By: #### C BC ####[facility] Yittojctcx1420 [place] [id number]. Antonella Medrano Monocytes/100 WBC (Bld) 8.6 % Normal 1.7-12.[address] [facility] Comment on above: Performed By: #### C BC ####[facility] Fpgolrjhwp2727 [place] [id number]. Antonella Medrano NEUT # 4.6 103/ul Normal 1.4-6.5 [facility] Comment on above: Performed By: #### C BC ####[facility] Eawndpbzbj6844 [place] [id number]. Antonella Medrano Neutrophils/100 WBC (Bld) 59.3 % Normal 43.0-75.[address] [facility] Comment on above: Performed By: #### C BC ####[facility] Qelaollvoc8314 [place] [address]Dr. Antonella Medrano Platelet mean volume (Bld) [Entitic vol] 9.9 fL Normal 9.5-13.[address] [facility] Comment on above: Performed By: #### C BC ####[facility] Deojxpnfod0224 [place] [address]Dr. Antonella Medrano PLT 278 103/ul Normal 150-[address] [facility] Comment on above: Performed By: #### C BC ####[facility] Hjnpqshucr6012 [place] [id number]. Antonella Medrano RBC 4.23 106/ul Normal 4.20-5.[address] [facility] Comment on above: Performed By: #### C BC ####[facility] Hlteiemzgt3759 [place] [id number]. Antonella Medrano WBC 7.7 103/ul Normal 4.0-11.[address] [facility] Comment on above: Performed By: #### C BC ####[facility] Jjzkhorqmq8429 [place] [id number]. Antonella Medrano MAGNESIUMon 01-02-2023 Magnesium [Mass/Vol] 1.3 mg/dL Critically low 1.8-2.[address] [facility] Comment on above: Performed By: #### M G ####[facility] Dfnnzynhyk[address] [place], [place] [address]Dr. Antonella Medrano POINT OF CARE GLUCOSEon 12-22 Glucose [Mass/Vol] 307 mg/dL Critically high 74-106 [facility] Comment on above: Performed By: #### P OCGLUC ####[facility] Yvbdczwzyw9930 [place] [address]Dr. Antonella Medrano Glucose [Mass/Vol] 242 mg/dL Critically high 74-106 [facility] Comment on above: Performed By: #### P OCGLUC ####[facility] Dojpgjmrdy637[address] [place], [place] [address]DrGerman Medrano PROF CHEM 8 (BAS METB)on Anion gap [Moles/Vol] 11.5 mmol/L Normal [facility] Comment on above: Performed By: #### B MP ####[facility] Nxqtdzeyac19[address] [place], [place] [address]Dr. Antonella Medrano Calcium [Mass/Vol] 8.5 mg/dL Normal 8.5-10.1 [facility] Comment on above: Performed By: #### B MP ####[facility] Svkigufccq335[address] [place], [place] [address]Dr. Antonella Medrano Chloride [Moles/Vol] 106 mmol/L Normal 98-107 [facility] Comment on above: Performed By: #### B MP ####[facility] Zrxeqncruo017[address] [place], [place] [address]DrGerman Medrano CO2 [Moles/Vol] 25.8 mmol/L Normal 21.0-32.0 [facility] Comment on above: Performed By: #### B MP ####[facility] Rbrqsyhuuw712[address] [place], [place] [address]Dr. Antonella Medrano Creatinine [Mass/Vol] 0.81 mg/dL Normal 0.55-1.02 [facility] Comment on above: Performed By: #### B MP ####[facility] Waedrdvray[address] [place], [place] [address]DrGerman Medrano EGFR-AF FAROESE >60 Normal >=60 [facility] Comment on above: Performed By: #### B MP ####[facility] Nddgjzrgav3980 [place] [id number]. Antonella Medrano EGFR-NON AF FAROESE >60 Normal >=60 [facility] Comment on above: Performed By: #### B MP ####[facility] Wgxegzbzah6176 [place] [id number]. Mariafilemon Mitchell Glucose [Mass/Vol] 185 mg/dL Critically high 74-106 [facility] Comment on above: Performed By: #### B MP ####[facility] Mzdshpedqt4856 [place] [address]Dr. Antonella Medrano Potassium [Moles/Vol] 4.3 mmol/L Normal 3.5-5.1 [facility] Comment on above: Performed By: #### B MP ####[facility] Oyeyvgmjhb600[address] [place], [place] [address]Dr. Antonella Medrano Sodium [Moles/Vol] 139 mmol/L Normal 136-145 [facility] Comment on above: Performed By: #### B MP ####[facility] Ytjsucgnfb601[address] [place], [place] [address]Dr. Mariafilemon Mitchell Urea nitrogen [Mass/Vol] 17.0 mg/dL Normal 7.0-18.0 [facility] Comment on above: Performed By: #### B MP ####[facility] Ohbcssicml047[address] [place], [place] [address]Dr. Antonella Medrano Urea nitrogen/Creatinine [Mass ratio] 21.0 mg/mg Normal [facility] Comment on above: Performed By: #### B MP ####[facility] Qcvbzjsver7835 [place] [id number]. Mariafilemon Mitchell CBC AUTO DIFFon 01-01-2023 BASO # 0.0 103/ul Normal 0.0-0.1 [facility] Comment on above: Performed By: #### C BC ####[facility] Fmzanttrnv119[address] [place], [place] [address]Dr. Antonella Medrano Basophils/100 WBC (Bld) 0.3 % Normal 0.2-2.0 [facility] Comment on above: Performed By: #### C BC ####[facility] Tswpqsqhoa765[address] [place], [place] [address]DrGerman Medrano EO # 0.1 103/ul Normal 0.0-0.[address] [facility] Comment on above: Performed By: #### C BC ####[facility] Cdkdnthixs938[address] [place], [place] [address]DrGerman Medrano Eosinophils/100 WBC (Bld) 1.4 % Normal 0.9-7.[address] [facility] Comment on above: Performed By: #### C BC ####[facility] Wjpxbjybqb90[address] [place], [place] [address]DrGerman Medrano Erythrocyte distribution width (RBC) [Ratio] 13.9 % Normal 11.0-15.0 [facility] Comment on above: Performed By: #### C BC ####[facility] Hlixfvcojs95[address] [place], [place] [address]Dr. Antonella Medrano Hematocrit (Bld) [Volume fraction] 38.0 % Normal 36.0-48.0 [facility] Comment on above: Performed By: #### C BC ####[facility] Wvfqwygzwn578[address] [place], [place] [address]DrGerman Medrano Hemoglobin (Bld) [Mass/Vol] 12.6 g/dL Normal 12.0-16.[address] [facility] Comment on above: Performed By: #### C BC ####[facility] Bmjeochise300[address] [place], [place] [address]DrGerman Medrano IG # 0.15 10e3/ul Critically high 0.00-0.[address] [facility] Comment on above: Performed By: #### C BC ####[facility] Hnudciboom54[address] [place], [place] [address]DrGerman Medrano IG % 1.5 % Critically high 0.0-0.[address] [facility] Comment on above: Performed By: #### C BC ####[facility] Vskjnbgorq35[address] [place], [place] [address]Dr. Antonella Medrano LYMPH # 1.6 103/ul Normal 1.2-3.[address] [facility] Comment on above: Performed By: #### C BC ####[facility] Xsfoohkyag1399 [place] [address]DrGerman Medrano Lymphocytes/100 WBC (Bld) 15.5 % Critically low 20.5-60.0 [facility] Comment on above: Performed By: #### C BC ####[facility] Kyrtczlxpo84[address] [place], [place] [address]DrGerman Medrano MANUAL DIFF REQ NO Normal [facility] Comment on above: Performed By: #### C BC ####[facility] Xlheqhvbmt[address] [place], [place] [address]DrGerman Medrano MCH (RBC) [Entitic mass] 29.5 pg Normal 26.7-34.[address] [facility] Comment on above: Performed By: #### C BC ####[facility] Clrcgdzckm78[address] [place], [place] [address]DrGerman Medrano MCHC (RBC) [Mass/Vol] 33.2 g/dL Normal 29.9-35.[address] [facility] Comment on above: Performed By: #### C BC ####[facility] Idtlnvrmvu57[address] [place], [place] [address]DrGerman Medrano MCV (RBC) [Entitic vol] 89.0 fL Normal 81.0-99.[address] [facility] Comment on above: Performed By: #### C BC ####[facility] Mvylesvkdy80[address] [place], [place] [address]DrGerman Medrano MONO # 0.9 103/ul Critically high 0.3-0.[address] [facility] Comment on above: Performed By: #### C BC ####[facility] Aiollpstmr93[address] [place], [place] [address]DrGerman Medrano Monocytes/100 WBC (Bld) 9.4 % Normal 1.7-12.[address] [facility] Comment on above: Performed By: #### C BC ####[facility] Idxhgjnpvo42[address] [place], [place] [address]DrGerman Medrano NEUT # 7.2 103/ul Critically high 1.4-6.5 [facility] Comment on above: Performed By: #### C BC ####[facility] Ghyiwprifx9260 [place] [address]Dr. Antonella Medrano Neutrophils/100 WBC (Bld) 71.9 % Normal 43.0-75.[address] [facility] Comment on above: Performed By: #### C BC ####[facility] Dabuypyuwt8508 [place] [address]Dr. Antonella Medrano Platelet mean volume (Bld) [Entitic vol] 9.8 fL Normal 9.5-13.[address] [facility] Comment on above: Performed By: #### C BC ####[facility] Luofwyupvn2799 [place] [address]Dr. Antonella Medrano PLT 266 103/ul Normal 150-[address] [facility] Comment on above: Performed By: #### C BC ####[facility] Htuitzbpbj4241 [place] [address]Dr. Antonella Medrano RBC 4.27 106/ul Normal 4.20-5.[address] [facility] Comment on above: Performed By: #### C BC ####[facility] Emgxvzxwje4848 [place] [address]Dr. Antonella Medrano WBC 10.0 103/ul Normal 4.0-11.[address] [facility] Comment on above: Performed By: #### C BC ####[facility] Wmaqbsprrg62[address] [place], [place] [address]Dr. Antonella Medrano [facility]on 12-22 SARS-CoV-2 (COVID-19) RNA TAISHA+probe Ql (Unsp spec) Not detected Normal NOT DETECTED [facility] Comment on above: Result Comment: When diagnostic testing is negative, the possibility of a false negative should be considered inthe context of a patient's recent exposures and the presence of clinical signs and symptomsconsistent with SARS-CoV-2.This test is not yet approved or cleared by the [place] FDA. When there are no FDA-approved or cleared tests available, and other criteria are met, FDA can make tests available under an emergency access mechanism called an Emergency Use Authorization (EUA). The EUA for this test is supported by the Outpatient Pharmacy Manager of Health and Human Service's declaration that circumstances exist to justify the emergency use of in vitro diagnostics for the detection and/or diagnosis of the virus that causes COVID-19. This EUA will remain in effect for the duration of the COVID-19 declaration justifying emergency of IVDs, unless it is terminated or revoked by the FDA (after which the test may no longer be used). Performed By: #### [facility] ####[facility] Jcykufmjii227[address] [place], [place] [address]Dr. Antonella Medrano ER URINE PROFILEon 3 Bilirubin Ql (U) Negative Normal NEGATIVE [facility] Comment on above: Performed By: #### HALEY CLARK ####[facility] Ludgryabev9[address] [place], [place] [address]Dr. Antonella Medrano Clarity (U) CLEAR Normal CLEAR [facility] Comment on above: Performed By: #### HALEY CLARK ####[facility] Bqoewmupys[address] [place], [place] [address]Dr. Antonella Medrano Color (U) LT. YELLOW Normal YELLOW [facility] Comment on above: Performed By: #### HALEY CLARK ####[facility] Qpdchdyrcz088[address] [place], [place] [address]Dr. Antonella Medrano ERUAHD A micrscopic examina tion will be performed if indicated. Normal [facility] Comment on above: Performed By: #### HALEY CLARK ####[facility] Zbivtkhjhw99[address] [place], [place] [address]Dr. Antonella Medrano Glucose Ql (U) 100 mg/dl Abnormal NEGATIVE [facility] Comment on above: Performed By: #### HALEY CLARK ####[facility] Xdaepctrab08[address] [place], [place] [address]Dr. Antonella Medrano Hemoglobin Ql (U) TRACE-INTACT Abnormal NEGATIVE [facility] Comment on above: Performed By: #### HALEY CLARK ####[facility] Nvcgodpkrn49[address] [place] [address]Dr. Antonella Medrano Ketones Ql (U) Negative Normal NEGATIVE [facility] Comment on above: Performed By: #### HALEY CLARK ####[facility] Weqwkvzavo[address] [place], [place] [address]Dr. Antonella Medrano LEUKOCYTES MODERATE Abnormal NEGATIVE [facility] Comment on above: Performed By: #### HALEY CLARK ####[facility] Uhvlqfxjjh744[address] [place], [place] [address]Dr. Antonella Medrano Nitrite Ql (U) Negative Normal NEGATIVE [facility] Comment on above: Performed By: #### HALEY CLARK ####[facility] Bdgmlolqpw[address] [place], [place] [address]Dr. Antonella Medrano pH (U) 5.5 [pH] Normal 5-9 [facility] Comment on above: Performed By: #### HALEY CLARK ####[facility] Xctmflhffu[address] [place], [place] [address]Dr. Antonella Medrnao SPEC GRAVITY 1.010 Normal 1.005-<=1.0 25 [facility] Comment on above: Performed By: #### HALEY CLARK ####[facility] [address]uppqvlzhc[address] [place], [place] [address]Dr. Antonella Medrano UA PROTEIN TRACE Normal NEGATIVE/ TRACE [facility] Comment on above: Performed By: #### HALEY CLARK ####[facility] Qsqxthloia50[address] [place], [place] [address]Dr. Antonella Medrano UR MICRO IND INDICATED Normal [facility] Comment on above: Performed By: #### HALEY CLARK ####[facility] Mlhxtuchbl[address] [place], [place] [address]Dr. Antonella Medrano Urobilinogen Qn (U) 0.2 {Oleg'U}/dL Normal 0.2 - 1. 0 [facility] Comment on above: Performed By: #### HALEY CLARK ####[facility] Qfusxroghr17[address] [place], [place] [address]Dr. Antonella Medrano MAGNESIUMon 01-01-2023 Magnesium [Mass/Vol] 0.9 mg/dL Critically low 1.8-2.4 [facility] Comment on above: Performed By: #### M G ####[facility] Gwukmsfuoj[address] [place] [address]Dr. Antonella Medrano POINT OF CARE GLUCOSEon 12-22 Glucose [Mass/Vol] 133 mg/dL Critically high 74-106 [facility] Comment on above: Performed By: #### P OCGLUC ####[facility] Mrqcwakjez224[address] [place] [address]Dr. Antonella Medrano Glucose [Mass/Vol] 114 mg/dL Critically high 74-106 [facility] Comment on above: Performed By: #### P OCGLUC ####[facility] Anvbhwqqhg9[address] [place] [address]Dr. Antonella Medrano PROF 14(COMP METB)on 023 Albumin [Mass/Vol] 2.5 g/dL Critically low 3.4-5.0 [facility] Comment on above: Performed By: #### C MP ####[facility] Ylruuzedsm[address] [place] [address]Dr. Antonella Medrano Albumin/Globulin [Mass ratio] 0.7 {ratio} Normal [facility] Comment on above: Performed By: #### C MP ####[facility] Kyccfxzzhi4[address] [place] [address]Dr. Antonella Medrano ALP [Catalytic activity/Vol] 97 U/L Normal 46-116 [facility] Comment on above: Performed By: #### C MP ####[facility] Zygehzvgdc32[address] [place] [address]Dr. Antonella Medrano ALT [Catalytic activity/Vol] 15 U/L Normal 14-59 [facility] Comment on above: Performed By: #### C MP ####[facility] Nwnrvpjtsz7[address] [place] [address]Dr. Antonella Medrano Anion gap [Moles/Vol] 14.4 mmol/L Normal [facility] Comment on above: Performed By: #### C MP ####[facility] Drpcvbpvjs7475 [place] [id number]. Antonella Medrano AST [Catalytic activity/Vol] 11 U/L Critically low 15-[address] [facility] Comment on above: Performed By: #### C MP ####[facility] Gngwduwbmg4612 [place] [id number]. Antonella Medrano Bilirubin [Mass/Vol] 0.2 mg/dL Normal 0.2-1.[address] [facility] Comment on above: Performed By: #### C MP ####[facility] Sazwwdfkxn9687 [place] [id number]. Antonella Medrano Calcium [Mass/Vol] 8.6 mg/dL Normal 8.5-10.[address] [facility] Comment on above: Performed By: #### C MP ####[facility] Deaxpznqvs9[address] [place] [address]Dr. Antonella Medrano Chloride [Moles/Vol] 105 mmol/L Normal 98-[address] [facility] Comment on above: Performed By: #### C MP ####[facility] Cuvkizusil7174 [place] [id number]. Antonella Medrano CO2 [Moles/Vol] 26.8 mmol/L Normal 21.0-32.[address] [facility] Comment on above: Performed By: #### C MP ####[facility] Lpmslhehwm5998 [place] [id number]. Antonella Medrano Creatinine [Mass/Vol] 0.83 mg/dL Normal 0.55-1.[address] [facility] Comment on above: Performed By: #### C MP ####[facility] Bxkzkembdw1321 [place] [id number]. Antonella Medrano EGFR-AF FAROESE >60 Normal >=[address] [facility] Comment on above: Performed By: #### C MP ####[facility] Owecmzuiuy0779 [place] [id number]. Antonella Mitchell EGFR-NON AF FAROESE >60 Normal >=[address] [facility] Comment on above: Performed By: #### C MP ####[facility] Algncxgkic[address] [place], [place] [address]Dr. Antonella Mitchell Globulin (S) [Mass/Vol] 3.4 g/dL Normal [facility] Comment on above: Performed By: #### C MP ####[facility] Qaauteibmg86[address] [place], [place] [address]Dr. Antonella Medrano Glucose [Mass/Vol] 148 mg/dL Critically high 74-106 [facility] Comment on above: Performed By: #### C MP ####[facility] Kpoacilgqo22[address] [place], [place] [address]Dr. Antonella Mitchell Potassium [Moles/Vol] 4.2 mmol/L Normal 3.5-5.1 [facility] Comment on above: Performed By: #### C MP ####[facility] Xjdlahcumt847[address] [place], [place] [address]Dr. Antonella Mitchell Protein [Mass/Vol] 5.9 g/dL Critically low 6.4-8.2 [facility] Comment on above: Performed By: #### C MP ####[facility] Kjpvecfljk9430[address] [place], [place] [address]Dr. Antonella Mitchell Sodium [Moles/Vol] 142 mmol/L Normal 136-145 [facility] Comment on above: Performed By: #### C MP ####[facility] Iqsfnuswle220[address] [place], [place] [address]Dr. Antonella Mitchell Urea nitrogen [Mass/Vol] 21.0 mg/dL Critically high 7.0-18.0 [facility] Comment on above: Performed By: #### C MP ####[facility] Lcpghltdmb117[address] [place], [place] [address]Dr. Antonella Mitchell Urea nitrogen/Creatinine [Mass ratio] 25.3 mg/mg Normal [facility] Comment on above: Performed By: #### C MP ####[facility] Clgnbgcyzv699[address] [place], [place] [address]Dr. Antonella Mitchell URINE MICROSCOPIC ONLYon BACTERIA TRACE Abnormal NONE SEEN [facility] Comment on above: Performed By: #### E HALEY LEE ####[facility] Dnsggpvfvx724[address] [place], [place] [address]Dr. Antonella Medrano Bacteria identified Cx Nom (U) INDICATED Normal [facility] Comment on above: Performed By: #### Daniela LEE UMICRO ####[facility] Satnnhnywd8360[address] [place], [place] [address]Dr. Antonella Medrano CAST NONE SEEN Normal NONE SEEN [facility] Comment on above: Performed By: #### Daniela LEE UMICRO ####[facility] Rzvmhkybfv503[address] [place], [place] [address]Dr. Antonella Medrano Crystals LM Nom (Urine sed) NONE SEEN Normal NONE SEEN [facility] Comment on above: Performed By: #### Daniela LEE UMICRO ####[facility] Eyfahxtlic319[address] [place], [place] [address]Dr. Antonella Medrano Epithelial cells LM Ql (Urine sed) RARE Normal NONE SEEN /RARE [facility] Comment on above: Performed By: #### Daniela LEE UMICRO ####[facility] Ayuwngnvwg5810[address] [place], [place] [address]Dr. Antonella Medrano MUCOUS NONE SEEN Normal NONE SEEN [facility] Comment on above: Performed By: #### Daniela LEE ICRO ####[facility] Keubuiyygk790[address] [place], [place] [address]Dr. Antonella Medrano RBC 2-5 Abnormal 0-2 [facility] Comment on above: Performed By: #### Daniela LEE UMICRO ####[facility] Qaeqcpgtny925[address] [place], [place] [address]Dr. Antonella Medrano WBC 10-20 Abnormal NONE SEEN [facility] Comment on above: Performed By: #### Daniela LEE UMICRO ####[facility] Dafvuccoks827[address] [place], [place] [address]Dr. Antonella Medrano CBC AUTO DIFFon 11-13-2022 BASO # 0.0 103/ul Normal 0.0-0.[address] [facility] Comment on above: Performed By: #### C BC ####[facility] Cglykhwoge713[address] [place], [place] [address]Dr. Antonella Medrano Basophils/100 WBC (Bld) 0.4 % Normal 0.2-2.[address] [facility] Comment on above: Performed By: #### C BC ####[facility] Hfkkkhdawu6759 [place] [address]Dr. Antonella Medrano EO # 0.3 103/ul Normal 0.0-0.[address] [facility] Comment on above: Performed By: #### C BC ####[facility] Rscvrypkgy3634[address] [place], [place] [address]Dr. Antonella Medrano Eosinophils/100 WBC (Bld) 3.2 % Normal 0.9-7.0 [facility] Comment on above: Performed By: #### C BC ####[facility] Erldhjysds6260[address] [place], [place] [address]Dr. Antonella Medrano Erythrocyte distribution width (RBC) [Ratio] 13.0 % Normal 11.0-15.[address] [facility] Comment on above: Performed By: #### C BC ####[facility] Rsgovpgsqw2285[address] [place], [place] [address]Dr. Antonella Medrano Hematocrit (Bld) [Volume fraction] 39.4 % Normal 36.0-48.0 [facility] Comment on above: Performed By: #### C BC ####[facility] Srhvsqjtvo2830[address] [place], [place] [address]Dr. Antonella Medrano Hemoglobin (Bld) [Mass/Vol] 13.3 g/dL Normal 12.0-16.[address] [facility] Comment on above: Performed By: #### C BC ####[facility] Xddgwrsezh390[address] [place], [place] [address]Dr. Antonella Medrano IG # 0.08 10e3/ul Critically high 0.00-0.[address] [facility] Comment on above: Performed By: #### C BC ####[facility] Wuzkygenjs9688[address] [place], [place] [address]Dr. Mariafilemon Medrano IG % 0.9 % Critically high 0.0-0.[address] [facility] Comment on above: Performed By: #### C BC ####[facility] Dzqhqinfvy1136[address] [place], [place] [address]Dr. Antonella Medrano LYMPH # 1.6 103/ul Normal 1.2-3.[address] [facility] Comment on above: Performed By: #### C BC ####[facility] Qphqrxaqoh9457 [place] [address]Dr. Mariafilemon Medrano Lymphocytes/100 WBC (Bld) 18.7 % Critically low 20.5-60.0 [facility] Comment on above: Performed By: #### C BC ####[facility] Kuavstrmol7448 [place] [address]DrGerman Medrano MANUAL DIFF REQ NO Normal [facility] Comment on above: Performed By: #### C BC ####[facility] Mvupqrakqz2777 [place] [id number]. Antonella Medrano MCH (RBC) [Entitic mass] 28.9 pg Normal 26.7-34.[address] [facility] Comment on above: Performed By: #### C BC ####[facility] Rufjyjwybd180[address] [place], [place] [address]Dr. Antonella Medrano MCHC (RBC) [Mass/Vol] 33.8 g/dL Normal 29.9-35.2 [facility] Comment on above: Performed By: #### C BC ####[facility] Suokgojiqs7217[address] [place], [place] [address]DrGerman Medrano MCV (RBC) [Entitic vol] 85.7 fL Normal 81.0-99.0 [facility] Comment on above: Performed By: #### C BC ####[facility] Izxzmmaofz6529[address] [place], [place] [address]DrGerman Medrano MONO # 0.9 103/ul Critically high 0.3-0.8 [facility] Comment on above: Performed By: #### C BC ####[facility] Gmqgunybhy457[address] [place], [place] [address]DrGerman Medrano Monocytes/100 WBC (Bld) 10.4 % Normal 1.7-12.[address] [facility] Comment on above: Performed By: #### C BC ####[facility] Httrjuypoe798[address] [place], [place] [address]DrGerman Medrano NEUT # 5.7 103/ul Normal 1.4-6.5 [facility] Comment on above: Performed By: #### C BC ####[facility] Esjslmihst5313 [place] [id number]. Antonella Medrano Neutrophils/100 WBC (Bld) 66.4 % Normal 43.0-75.0 [facility] Comment on above: Performed By: #### C BC ####[facility] Mqluctesmk7731 [place] [id number]. Antonella Medrano Platelet mean volume (Bld) [Entitic vol] 10.8 fL Normal 9.5-13.5 [facility] Comment on above: Performed By: #### C BC ####[facility] Rulxbhtvpg0007 [place] [id number]. Antonella Medrano PLT 255 103/ul Normal 150-450 [facility] Comment on above: Performed By: #### C BC ####[facility] Gztioszdak7375 [place] [id number]. Antonella Medrano RBC 4.60 106/ul Normal 4.20-5.40 [facility] Comment on above: Performed By: #### C BC ####[facility] Dfhzizzvll0429 [place] [id number]. Antonella Medrano WBC 8.6 103/ul Normal 4.0-11.0 [facility] Comment on above: Performed By: #### C BC ####[facility] Bxjghrktgr6797 [place] [id number]. Antonella Medrano POINT OF CARE GLUCOSEon 10-25 Glucose [Mass/Vol] 317 mg/dL Critically high 74-106 [facility] Comment on above: Performed By: #### P OCGLUC ####[facility] Qnmdjsvvgt8846 [place] [id number]. Antonella Medrano Glucose [Mass/Vol] 328 mg/dL Critically high 74-106 [facility] Comment on above: Performed By: #### P OCGLUC ####[facility] Lyluldfkms5686 [place] [id number]. Antonella Medrano Glucose [Mass/Vol] 234 mg/dL Critically high 74-106 [facility] Comment on above: Performed By: #### P OCGLUC ####[facility] Ebxebbpcdh7331 [place] [id number]. Antonella Medrano Glucose [Mass/Vol] 343 mg/dL Critically high 74-106 [facility] Comment on above: Performed By: #### P OCGLUC ####[facility] Ftfghblzvd2215 [place] [id number]. Antonella Medrano Glucose [Mass/Vol] 284 mg/dL Critically high 74-106 [facility] Comment on above: Performed By: #### P OCGLUC ####[facility] Iyewuhbnnw9129 [place] [id number]. Antonella Medrano PROF 14(COMP METB)on 023 Albumin [Mass/Vol] 2.5 g/dL Critically low 3.4-5.0 [facility] Comment on above: Performed By: #### C MP ####[facility] Qffxpvknhz914[address] [place], [place] [address]Dr. Antonella Medrano Albumin/Globulin [Mass ratio] 0.9 {ratio} Normal [facility] Comment on above: Performed By: #### C MP ####[facility] Epvrzurrit0410 [place] [address]Dr. Antonella Medrano ALP [Catalytic activity/Vol] 121 U/L Critically high 46-116 [facility] Comment on above: Performed By: #### C MP ####[facility] Ecpnrvekho2456 [place] [address]Dr. Antonella Medrano ALT [Catalytic activity/Vol] 19 U/L Normal 14-59 [facility] Comment on above: Performed By: #### C MP ####[facility] Jesslnjvlz8757 [place] [id number]. Antonella Medrano Anion gap [Moles/Vol] 11.0 mmol/L Normal [facility] Comment on above: Performed By: #### C MP ####[facility] Kkguxtdjdx2884 [place] [address]Dr. Antonella Medrano AST [Catalytic activity/Vol] 19 U/L Normal 15-37 [facility] Comment on above: Performed By: #### C MP ####[facility] Fakhbgirzh6997 [place] [address]Dr. Antonella Medrano Bilirubin [Mass/Vol] 0.3 mg/dL Normal 0.2-1.0 [facility] Comment on above: Performed By: #### C MP ####[facility] Wfhvafqknc0444 [place] [address]Dr. Antonella Medrano Calcium [Mass/Vol] 8.8 mg/dL Normal 8.5-10.[address] [facility] Comment on above: Performed By: #### C MP ####[facility] Gkvuephlld5301 [place] [address]Dr. Antonella Medrano Chloride [Moles/Vol] 103 mmol/L Normal 98-[address] [facility] Comment on above: Performed By: #### C MP ####[facility] Pfwtklwujw411[address] [place], [place] [address]Dr. Antonella Medrano CO2 [Moles/Vol] 27.2 mmol/L Normal 21.0-32.[address] [facility] Comment on above: Performed By: #### C MP ####[facility] Sxiinrixlm067[address] [place], [place] [address]Dr. Antonella Medrano Creatinine [Mass/Vol] 0.58 mg/dL Normal 0.55-1.02 [facility] Comment on above: Performed By: #### C MP ####[facility] Srxqfddydu547[address] [place], [place] [address]Dr. Antonella Medrano EGFR-AF FAROESE >60 Normal >=[address] [facility] Comment on above: Performed By: #### C MP ####[facility] Yvvgzpxwur3341 [place] [address]Dr. Antonella Medrano EGFR-NON AF FAROESE >60 Normal >=[address] [facility] Comment on above: Performed By: #### C MP ####[facility] Ojpipioqkn0014 [place] [address]Dr. Antonella Medrano Globulin (S) [Mass/Vol] 2.7 g/dL Normal [facility] Comment on above: Performed By: #### C MP ####[facility] Akmqwabjxw8698 [place] [id number]. Antonella Medrano Glucose [Mass/Vol] 245 mg/dL Critically high 74-106 [facility] Comment on above: Performed By: #### C MP ####[facility] Wlyxjuoqjw9056 [place] [id number]. Antonella Medrano Potassium [Moles/Vol] 4.2 mmol/L Normal 3.5-5.1 [facility] Comment on above: Performed By: #### C MP ####[facility] Gevjypyrmw5461 [place] [id number]. Antonella Medrano Protein [Mass/Vol] 5.2 g/dL Critically low 6.4-8.2 [facility] Comment on above: Performed By: #### C MP ####[facility] Kiarsmphoi905[address] [place], [place] [address]Dr. Antonella Medrano Sodium [Moles/Vol] 137 mmol/L Normal 136-145 [facility] Comment on above: Performed By: #### C MP ####[facility] Bnfbgwphib8230 [place] [address]Dr. Antonella Medrano Urea nitrogen [Mass/Vol] 24.0 mg/dL Critically high 7.0-18.0 [facility] Comment on above: Performed By: #### C MP ####[facility] Crsvnhrnme764[address] [place], [place] [address]Dr. Antonella Medrano Urea nitrogen/Creatinine [Mass ratio] 41.4 mg/mg Normal [facility] Comment on above: Performed By: #### C MP ####[facility] Rfausypgtk[address] [place], [place] [id number]. Antonella Mitchell CBC AUTO DIFFon 11-12-2022 BASO # 0.0 103/ul Normal 0.0-0.1 [facility] Comment on above: Performed By: #### C BC ####[facility] Jygmifdkeb1197 [place] [id number]. Antonella Mitchell Basophils/100 WBC (Bld) 0.5 % Normal 0.2-2.0 [facility] Comment on above: Performed By: #### C BC ####[facility] Uahnghlyfy0712 [place] [id number]. Antonella Medrano EO # 0.3 103/ul Normal 0.0-0.[address] [facility] Comment on above: Performed By: #### C BC ####[facility] Hojggqnsgf0995 [place] [id number]. Antonella Medrano Eosinophils/100 WBC (Bld) 3.5 % Normal 0.9-7.[address] [facility] Comment on above: Performed By: #### C BC ####[facility] Ntxrlroutz7060[address] [place], [place] [address]Dr. Antonella Medrano Erythrocyte distribution width (RBC) [Ratio] 13.1 % Normal 11.0-15.0 [facility] Comment on above: Performed By: #### C BC ####[facility] Fkjiwgetzc4301[address] [place], [place] [address]Dr. Antonella Medrano Hematocrit (Bld) [Volume fraction] 39.4 % Normal 36.0-48.0 [facility] Comment on above: Performed By: #### C BC ####[facility] Alqlxbpugs535[address] [place], [place] [address]Dr. Antonella Medrano Hemoglobin (Bld) [Mass/Vol] 13.3 g/dL Normal 12.0-16.[address] [facility] Comment on above: Performed By: #### C BC ####[facility] Kfemgifvro6725[address] [place], [place] [address]Dr. Antonella Medrano IG # 0.11 10e3/ul Critically high 0.00-0.[address] [facility] Comment on above: Performed By: #### C BC ####[facility] Rjsytzlerr01[address] [place], [place] [address]Dr. Antonella Medrano IG % 1.3 % Critically high 0.0-0.[address] [facility] Comment on above: Performed By: #### C BC ####[facility] Bsaozitfuf059[address] [place], [place] [address]Dr. Antonella Medrano LYMPH # 2.0 103/ul Normal 1.2-3.[address] [facility] Comment on above: Performed By: #### C BC ####[facility] Tlkzgsgeok4752 [place] [id number]. Antonella Mitchell Lymphocytes/100 WBC (Bld) 22.9 % Normal 20.5-60.0 [facility] Comment on above: Performed By: #### C BC ####[facility] Iyaylinomw3471 [place] [id number]. Antonella Medrano MANUAL DIFF REQ NO Normal [facility] Comment on above: Performed By: #### C BC ####[facility] Rnudqxjgsf8317 [place] [id number]. Mariafilemon Medrano MCH (RBC) [Entitic mass] 29.2 pg Normal 26.7-34.[address] [facility] Comment on above: Performed By: #### C BC ####[facility] Sxvryoxith813[address] [place], [place] [address]Dr. Antonella Medrano MCHC (RBC) [Mass/Vol] 33.8 g/dL Normal 29.9-35.2 [facility] Comment on above: Performed By: #### C BC ####[facility] [address]pzfmkunf[address] [place], [place] [address]Dr. Mariafilemon Medrano MCV (RBC) [Entitic vol] 86.6 fL Normal 81.0-99.0 [facility] Comment on above: Performed By: #### C BC ####[facility] Cccmkeymbx934[address] [place], [place] [address]Dr. Antonella Medrano MONO # 0.8 103/ul Normal 0.3-0.[address] [facility] Comment on above: Performed By: #### C BC ####[facility] Manfmiqcfv523[address] [place], [place] [address]Dr. Antonella Medrano Monocytes/100 WBC (Bld) 9.2 % Normal 1.7-12.[address] [facility] Comment on above: Performed By: #### C BC ####[facility] Ijidcmazan25[address] [place], [place] [address]Dr. Antonella Medrano NEUT # 5.4 103/ul Normal 1.4-6.[address] [facility] Comment on above: Performed By: #### C BC ####[facility] Ayoonrhyig2919 [place] [id number]. Antonella Medrano Neutrophils/100 WBC (Bld) 62.6 % Normal 43.0-75.0 [facility] Comment on above: Performed By: #### C BC ####[facility] Hnoaupqcyv9212 [place] [id number]. Antonella Medrano Platelet mean volume (Bld) [Entitic vol] 10.8 fL Normal 9.5-13.5 [facility] Comment on above: Performed By: #### C BC ####[facility] Fhjxjpqdvd0807 [place] [id number]. Antonella Medrano PLT 247 103/ul Normal 150-450 [facility] Comment on above: Performed By: #### C BC ####[facility] Rzfaxodizr1422 [place] [address]Dr. Antonella Medrano RBC 4.55 106/ul Normal 4.20-5.40 [facility] Comment on above: Performed By: #### C BC ####[facility] Ygoxvhsoid1114 [place] [id number]. Antonella Medrano WBC 8.6 103/ul Normal 4.0-11.0 [facility] Comment on above: Performed By: #### C BC ####[facility] Ylrydzpzdg7323 [place] [id number]. Antonella Medrano POINT OF CARE GLUCOSEon 10-25 0 Glucose [Mass/Vol] 299 mg/dL Critically high 74-106 [facility] Comment on above: Performed By: #### P OCGLUC ####[facility] Eokooxwbxx7950 [place] [address]Dr. Antonella Medrano Glucose [Mass/Vol] 232 mg/dL Critically high 74-106 [facility] Comment on above: Performed By: #### P OCGLUC ####[facility] Dlrgnrqhfl2262 [place] [id number]. Antonella Medrano PROF 14(COMP METB)on 023 Albumin [Mass/Vol] 2.4 g/dL Critically low 3.4-5.0 [facility] Comment on above: Performed By: #### C MP ####[facility] Xryojlsqfq6874 [place] [address]Dr. Antonella Mitchell Albumin/Globulin [Mass ratio] 0.8 {ratio} Normal [facility] Comment on above: Performed By: #### C MP ####[facility] Qlvgbbvtjq1734 [place] [address]Dr. Antonella Medrano ALP [Catalytic activity/Vol] 115 U/L Normal 46-116 [facility] Comment on above: Performed By: #### C MP ####[facility] Txlpvctnvb43[address] [place], [place] [address]Dr. Antonella Medrano ALT [Catalytic activity/Vol] 15 U/L Normal 14-59 [facility] Comment on above: Performed By: #### C MP ####[facility] Bcinklwvvl69[address] [place], [place] [address]Dr. Antonella Medrano Anion gap [Moles/Vol] 11.2 mmol/L Normal [facility] Comment on above: Performed By: #### C MP ####[facility] Fafbvlnqrw634[address] [place], [place] [address]Dr. Antonella Mitchell AST [Catalytic activity/Vol] 17 U/L Normal 15-37 [facility] Comment on above: Performed By: #### C MP ####[facility] Jtvvguoryb390[address] [place], [place] [address]Dr. Antonella Medrano Bilirubin [Mass/Vol] 0.3 mg/dL Normal 0.2-1.0 [facility] Comment on above: Performed By: #### C MP ####[facility] Mrjhanmhhe715[address] [place], [place] [address]Dr. Antonella Medrano Calcium [Mass/Vol] 8.6 mg/dL Normal 8.5-10.1 [facility] Comment on above: Performed By: #### C MP ####[facility] Sviozkjkii13[address] [place], [place] [address]Dr. Antonella Medrano Chloride [Moles/Vol] 104 mmol/L Normal 98-107 [facility] Comment on above: Performed By: #### C MP ####[facility] Qyqezvqkft1647 [place] [address]Dr. Antonella Medrano CO2 [Moles/Vol] 26.0 mmol/L Normal 21.0-32.0 [facility] Comment on above: Performed By: #### C MP ####[facility] Lsgoesjqqi87[address] [place] [address]Dr. Antonella Medrano Creatinine [Mass/Vol] 0.62 mg/dL Normal 0.55-1.02 [facility] Comment on above: Performed By: #### C MP ####[facility] Rgkpnnojip97[address] [place] [address]Dr. Antonella Medrano EGFR-AF FAROESE >60 Normal >=60 [facility] Comment on above: Performed By: #### C MP ####[facility] Llpxcxqdij123952 [address] [place], [place] [address]Dr. Antonella Medrano EGFR-NON AF FAROESE >60 Normal >=60 [facility] Comment on above: Performed By: #### C MP ####[facility] Eckoebksoy[address] [place], [place] [address]Dr. Antonella Medrano Globulin (S) [Mass/Vol] 3.0 g/dL Normal [facility] Comment on above: Performed By: #### C MP ####[facility] Ilfaiqlqks05[address] [place], [place] [address]Dr. Antonella Medrano Glucose [Mass/Vol] 223 mg/dL Critically high 74-106 T [facility] Comment on above: Performed By: #### C MP ####[facility] Vfdsegpooo778[address] [place], [place] [address]Dr. Antonella Medrano Potassium [Moles/Vol] 4.2 mmol/L Normal 3.5-5.1 [facility] Comment on above: Performed By: #### C MP ####[facility] Ajynurgosk[address] [place], [place] [address]Dr. Antonella Medrano Protein [Mass/Vol] 5.4 g/dL Critically low 6.4-8.2 Th [facility] Comment on above: Performed By: #### C MP ####[facility] Qhtvwjvcaz7674 [place] [id number]. Antonella Medrano Sodium [Moles/Vol] 137 mmol/L Normal 136-[address] [facility] Comment on above: Performed By: #### C MP ####[facility] Gdyctcydgo547[address] [place], [place] [address]Dr. Antonella Medrano Urea nitrogen [Mass/Vol] 20.0 mg/dL Critically high 7.0-18.[address] [facility] Comment on above: Performed By: #### C MP ####[facility] Kxmatsmbeu77[address] [place], [place] [address]Dr. Antonella Medrano Urea nitrogen/Creatinine [Mass ratio] 32.3 mg/mg Normal [facility] Comment on above: Performed By: #### C MP ####[facility] Lqizoqnpkg9817[address] [place], [place] [address]Dr. Antonella Medrano CBC AUTO DIFFon 11-11-2022 BASO # 0.0 103/ul Normal 0.0-0.1 [facility] Comment on above: Performed By: #### C BC ####[facility] Gpxijhhexs28[address] [place], [place] [address]Dr. Antonella Medrano Basophils/100 WBC (Bld) 0.5 % Normal 0.2-2.[address] [facility] Comment on above: Performed By: #### C BC ####[facility] Zjfcuutlvq339[address] [place], [place] [address]Dr. Antonella Medrano EO # 0.3 103/ul Normal 0.0-0.[address] [facility] Comment on above: Performed By: #### C BC ####[facility] Vwgmhvpgpf659[address] [place], [place] [address]Dr. Antonella Medrano Eosinophils/100 WBC (Bld) 3.4 % Normal 0.9-7.[address] [facility] Comment on above: Performed By: #### C BC ####[facility] Gnksnxhoxj6765[address] [place], [place] [address]Dr. Antonella Medrano Erythrocyte distribution width (RBC) [Ratio] 13.3 % Normal 11.0-15.[address] [facility] Comment on above: Performed By: #### C BC ####[facility] Mdyzhlqqub60[address] [place] [address]Dr. Antonella Medrano Hematocrit (Bld) [Volume fraction] 38.2 % Normal 36.0-48.0 [facility] Comment on above: Performed By: #### C BC ####[facility] Drfnawtnlf5096 [place] [address]Dr. Antonella Medrano Hemoglobin (Bld) [Mass/Vol] 12.5 g/dL Normal 12.0-16.[address] [facility] Comment on above: Performed By: #### C BC ####[facility] Hvsfvlpiux175[address] [place], [place] [address]Dr. Antonella Medrano IG # 0.10 10e3/ul Critically high 0.00-0.03 [facility] Comment on above: Performed By: #### C BC ####[facility] Uvzpkfhtzs4960[address] [place], [place] [address]Dr. Antonella Medrano IG % 1.2 % Critically high 0.0-0.5 [facility] Comment on above: Performed By: #### C BC ####[facility] Cozguqobqo175[address] [place], [place] [address]Dr. Antonella Medrano LYMPH # 1.9 103/ul Normal 1.2-3.8 [facility] Comment on above: Performed By: #### C BC ####[facility] Onctegizhp7895[address] [place], [place] [address]Dr. Antonella Medrano Lymphocytes/100 WBC (Bld) 23.1 % Normal 20.5-60.[address] [facility] Comment on above: Performed By: #### C BC ####[facility] Bxgodccrls189[address] [place], [place] [address]Dr. Antonella Medrano MANUAL DIFF REQ NO Normal [facility] Comment on above: Performed By: #### C BC ####[facility] Qsfmumvqdp227[address] [place], [place] [address]Dr. Antonella Medrano MCH (RBC) [Entitic mass] 28.7 pg Normal 26.7-34.[address] [facility] Comment on above: Performed By: #### C BC ####[facility] Hujnyjkddw4038 [place] [id number]. Antonella Mitchell MCHC (RBC) [Mass/Vol] 32.7 g/dL Normal 29.9-35.[address] [facility] Comment on above: Performed By: #### C BC ####[facility] Mmjvhmdfrt3634 [place] [id number]. Antonella Medrano MCV (RBC) [Entitic vol] 87.6 fL Normal 81.0-99.[address] [facility] Comment on above: Performed By: #### C BC ####[facility] Lwbaonihkm1024[address] [place], [place] [address]Dr. Antonella Medrano MONO # 0.8 103/ul Normal 0.3-0.[address] [facility] Comment on above: Performed By: #### C BC ####[facility] Ebqcvqssjk264[address] [place], [place] [address]Dr. Antonella Medrano Monocytes/100 WBC (Bld) 9.8 % Normal 1.7-12.[address] [facility] Comment on above: Performed By: #### C BC ####[facility] Raesncleqd312[address] [place], [place] [address]Dr. Antonella Medrano NEUT # 5.1 103/ul Normal 1.4-6.[address] [facility] Comment on above: Performed By: #### C BC ####[facility] Vlwvlbspya18[address] [place], [place] [address]Dr. Antonella Medrano Neutrophils/100 WBC (Bld) 62.0 % Normal 43.0-75.[address] [facility] Comment on above: Performed By: #### C BC ####[facility] Kgouurfdxg516[address] [place], [place] [address]Dr. Antonella Medrano Platelet mean volume (Bld) [Entitic vol] 11.1 fL Normal 9.5-13.[address] [facility] Comment on above: Performed By: #### C BC ####[facility] Okupfhkdot6639[address] [place], [place] [address]Dr. Antonella Medrano PLT 251 103/ul Normal 150-[address] [facility] Comment on above: Performed By: #### C BC ####[facility] Umocsrqnqj8413 [place] [id number]. Antonella Medrano RBC 4.36 106/ul Normal 4.20-5.40 [facility] Comment on above: Performed By: #### C BC ####[facility] Ytnzodirjj1895 [place] [id number]. Antonella Medrano WBC 8.2 103/ul Normal 4.0-11.0 [facility] Comment on above: Performed By: #### C BC ####[facility] Vfulwemimc1840 [place] [address]Dr. Antonella Medrano POINT OF CARE GLUCOSEon 10-24 Glucose [Mass/Vol] 282 mg/dL Critically high 74-106 [facility] Comment on above: Performed By: #### P OCGLUC ####[facility] Vrflsantix8825 [place] [address]Dr. Mariafilemon Mitchell Glucose [Mass/Vol] 269 mg/dL Critically high 74-106 [facility] Comment on above: Performed By: #### P OCGLUC ####[facility] Jocdubfatw7894 [place] [address]Dr. Antonella Medrano Glucose [Mass/Vol] 255 mg/dL Critically high 74-106 [facility] Comment on above: Performed By: #### P OCGLUC ####[facility] Aoytvwxnpz0664 [place] [address]Dr. Antonella Medrano PROF 14(COMP METB)on 023 Albumin [Mass/Vol] 2.2 g/dL Critically low 3.4-5.0 [facility] Comment on above: Performed By: #### C MP ####[facility] Ifoxlvlahd1337 [place] [address]Dr. Antonella Medrano Albumin/Globulin [Mass ratio] 0.7 {ratio} Normal [facility] Comment on above: Performed By: #### C MP ####[facility] Hsqtxpcuuv4973 [place] [address]Dr. Mariafilemon Mitchell ALP [Catalytic activity/Vol] 129 U/L Critically high 46-116 [facility] Comment on above: Performed By: #### C MP ####[facility] Aegcmycxzp8376 [place] [id number]. Antonella Medrano ALT [Catalytic activity/Vol] 14 U/L Normal 14-59 [facility] Comment on above: Performed By: #### C MP ####[facility] Ilswprtztc1067 [place] [id number]. Antonella Medrano Anion gap [Moles/Vol] 10.6 mmol/L Normal Th [facility] Comment on above: Performed By: #### C MP ####[facility] Crjxhlcbjf0559 [place] [address]Dr. Antonella Medrano AST [Catalytic activity/Vol] 11 U/L Critically low 15-37 [facility] Comment on above: Performed By: #### C MP ####[facility] Ydgmxaxzcy9811[address] [place], [place] [address]Dr. Antonella Mitchell Bilirubin [Mass/Vol] 0.3 mg/dL Normal 0.2-1.0 [facility] Comment on above: Performed By: #### C MP ####[facility] Yujthhzgei910[address] [place], [place] [address]Dr. Antonella Medrano Calcium [Mass/Vol] 8.4 mg/dL Critically low 8.5-10.1 [facility] Comment on above: Performed By: #### C MP ####[facility] Uhrxfclimo979[address] [place], [place] [address]Dr. Antonella Mitchell Chloride [Moles/Vol] 105 mmol/L Normal 98-107 [facility] Comment on above: Performed By: #### C MP ####[facility] Mqtmsyrutj[address] [place], [place] [id number]. Antonella Medrano CO2 [Moles/Vol] 25.1 mmol/L Normal 21.0-32.0 [facility] Comment on above: Performed By: #### C MP ####[facility] Epuaoduioz596[address] [place], [place] [address]Dr. Antonella Mitchell Creatinine [Mass/Vol] 0.70 mg/dL Normal 0.55-1.02 [facility] Comment on above: Performed By: #### C MP ####[facility] Poiqoqhvql7142 [place] [id number]. Antonella Medrano EGFR-AF FAROESE >60 Normal >=60 [facility] Comment on above: Performed By: #### C MP ####[facility] Bwzvcorqvt9794 [place] [id number]. Antonella Medrano EGFR-NON AF FAROESE >60 Normal >=60 [facility] Comment on above: Performed By: #### C MP ####[facility] Jxwyirdpvt3174 [place] [id number]. Antonella Medrano Globulin (S) [Mass/Vol] 3.1 g/dL Normal [facility] Comment on above: Performed By: #### C MP ####[facility] Xoanicdmtc3333 [place] [address]Dr. Antonella Medrano Glucose [Mass/Vol] 275 mg/dL Critically high 74-106 T [facility] Comment on above: Performed By: #### C MP ####[facility] Yocjgfvyhl1167 [place] [address]Dr. Antonella Medrano Potassium [Moles/Vol] 4.7 mmol/L Normal 3.5-5.1 [facility] Comment on above: Performed By: #### C MP ####[facility] Jbshijktkz3872 [place] [address]Dr. Antonella Medrano Protein [Mass/Vol] 5.3 g/dL Critically low 6.4-8.2 Th [facility] Comment on above: Performed By: #### C MP ####[facility] Edllahobyb3050 [place] [address]Dr. Antonella Medrano Sodium [Moles/Vol] 136 mmol/L Normal 136-145 [facility] Comment on above: Performed By: #### C MP ####[facility] Xzctxmefho1593 [place] [address]Dr. Antonella Medrano Urea nitrogen [Mass/Vol] 27.0 mg/dL Critically high 7.0-18.0 [facility] Comment on above: Performed By: #### C MP ####[facility] Jfihvhjher3640 [place] [id number]. Antonella Medrano Urea nitrogen/Creatinine [Mass ratio] 38.6 mg/mg Normal [facility] Comment on above: Performed By: #### C MP ####[facility] Rygtzpzznb9723[address] [place], [place] [address]Dr. Antonella Medrano CBC AUTO DIFFon 11-10-2022 BASO # 0.1 103/ul Normal 0.0-0.[address] [facility] Comment on above: Performed By: #### C BC ####[facility] Otinomwtkh7[address] [place], [place] [id number]. Antonella Medrano Basophils/100 WBC (Bld) 0.6 % Normal 0.2-2.[address] [facility] Comment on above: Performed By: #### C BC ####[facility] Arbgyovuhi239[address] [place], [place] [address]Dr. Antonella Medrano EO # 0.3 103/ul Normal 0.0-0.[address] [facility] Comment on above: Performed By: #### C BC ####[facility] Gghvyoalds7918[address] [place], [place] [address]Dr. Antonella Medrano Eosinophils/100 WBC (Bld) 3.4 % Normal 0.9-7.[address] [facility] Comment on above: Performed By: #### C BC ####[facility] Vasnuzpgll037[address] [place], [place] [address]Dr. Antonella Medrano Erythrocyte distribution width (RBC) [Ratio] 13.3 % Normal 11.0-15.[address] [facility] Comment on above: Performed By: #### C BC ####[facility] Trbmmftwst[address] [place], [place] [address]Dr. Antonella Medrano Hematocrit (Bld) [Volume fraction] 39.8 % Normal 36.0-48.[address] [facility] Comment on above: Performed By: #### C BC ####[facility] Atjskraymf[address] [place], [place] [address]Dr. Antonella Medrano Hemoglobin (Bld) [Mass/Vol] 13.2 g/dL Normal 12.0-16.[address] [facility] Comment on above: Performed By: #### C BC ####[facility] Lrszknuzdm5351 [place] [id number]. Antonella Medrano IG # 0.11 10e3/ul Critically high 0.00-0.03 [facility] Comment on above: Performed By: #### C BC ####[facility] Zdbpvmqvkv1873 [place] [id number]. Antonella Medrano IG % 1.3 % Critically high 0.0-0.5 [facility] Comment on above: Performed By: #### C BC ####[facility] Vhooahnkvp2201 [place] [address]Dr. Antonella Medrano LYMPH # 1.8 103/ul Normal 1.2-3.[address] [facility] Comment on above: Performed By: #### C BC ####[facility] Gfuzbllsyk714[address] [place], [place] [address]Dr. Antonella Medrano Lymphocytes/100 WBC (Bld) 22.0 % Normal 20.5-60.0 [facility] Comment on above: Performed By: #### C BC ####[facility] Cyibhbzewk2915 [place] [address]Dr. Antonella Medrano MANUAL DIFF REQ NO Normal [facility] Comment on above: Performed By: #### C BC ####[facility] Dwznckdgsm994[address] [place], [place] [address]Dr. Antonella Medrano MCH (RBC) [Entitic mass] 29.3 pg Normal 26.7-34.[address] [facility] Comment on above: Performed By: #### C BC ####[facility] Elufzjozil617[address] [place], [place] [address]Dr. Antonella Medrano MCHC (RBC) [Mass/Vol] 33.2 g/dL Normal 29.9-35.[address] [facility] Comment on above: Performed By: #### C BC ####[facility] Ggqxqoesel0660[address] [place], [place] [address]Dr. Antonella Medrano MCV (RBC) [Entitic vol] 88.2 fL Normal 81.0-99.[address] [facility] Comment on above: Performed By: #### C BC ####[facility] Lgiiuhlyld3101 [place] [id number]. Antonella Medrano MONO # 0.9 103/ul Critically high 0.3-0.[address] [facility] Comment on above: Performed By: #### C BC ####[facility] Wtrxmrssgw8671 [place] [id number]. Antonella Medrano Monocytes/100 WBC (Bld) 11.0 % Normal 1.7-12.[address] [facility] Comment on above: Performed By: #### C BC ####[facility] Dmbsokwyji0537 [place] [id number]. Antonella Medrano NEUT # 5.0 103/ul Normal 1.4-6.[address] [facility] Comment on above: Performed By: #### C BC ####[facility] Nolzshqxwm9624[address] [place], [place] [address]Dr. Antonella Medrano Neutrophils/100 WBC (Bld) 61.7 % Normal 43.0-75.[address] [facility] Comment on above: Performed By: #### C BC ####[facility] Jkmihevfiy3629[address] [place], [place] [address]Dr. Antonella Medrano Platelet mean volume (Bld) [Entitic vol] 11.0 fL Normal 9.5-13.[address] [facility] Comment on above: Performed By: #### C BC ####[facility] Jbrzbeyllq975[address] [place], [place] [address]Dr. Antonella Medrano PLT 237 103/ul Normal 150-[address] [facility] Comment on above: Performed By: #### C BC ####[facility] Euhslqhylg[address] [place], [place] [id number]. Antonella Medrano RBC 4.51 106/ul Normal 4.20-5.[address] [facility] Comment on above: Performed By: #### C BC ####[facility] Dlyddrmigu096[address] [place], [place] [address]Dr. Antonella Medrano WBC 8.2 103/ul Normal 4.0-11.[address] [facility] Comment on above: Performed By: #### C BC ####[facility] Irefjoixyj4214 [place] [address]Dr. Antonella Medrano POINT OF CARE GLUCOSEon 10-24 Glucose [Mass/Vol] 255 mg/dL Critically high 74-106 [facility] Comment on above: Performed By: #### P OCGLUC ####[facility] Cfhvpmdrwx7740 [place] [address]Dr. Antonella Medrano Glucose [Mass/Vol] 268 mg/dL Critically high 74-106 [facility] Comment on above: Performed By: #### P OCGLUC ####[facility] Wkgwdgzcfw5698 [place] [address]Dr. Antonella eMdrano Glucose [Mass/Vol] 355 mg/dL Critically high 74-106 [facility] Comment on above: Performed By: #### P OCGLUC ####[facility] Zgpwqjeikq7458 [place] [address]Dr. Antonella Medrano Glucose [Mass/Vol] 318 mg/dL Critically high 74-106 [facility] Comment on above: Performed By: #### P OCGLUC ####[facility] Esyoiaftwv7989 [place] [address]Dr. Antonella Medrano PROF 14(COMP METB)on 023 Albumin [Mass/Vol] 2.3 g/dL Critically low 3.4-5.0 Th [facility] Comment on above: Performed By: #### C MP ####[facility] Rkcstdcwlt2142 [place] [address]Dr. Antonella Mitchell Albumin/Globulin [Mass ratio] 0.9 {ratio} Normal [facility] Comment on above: Performed By: #### C MP ####[facility] Okwxihxwpw2421 [place] [address]Dr. Mariafilemon Medrano ALP [Catalytic activity/Vol] 153 U/L Critically high 46-116 [facility] Comment on above: Performed By: #### C MP ####[facility] Xyqmhsyppc5827 [place] [address]Dr. Antonella Medrano ALT [Catalytic activity/Vol] 15 U/L Normal 14-59 [facility] Comment on above: Performed By: #### C MP ####[facility] Gwmtbpexcr0195 [place] [id number]. Antonella Medrano Anion gap [Moles/Vol] 12.7 mmol/L Normal [facility] Comment on above: Performed By: #### C MP ####[facility] Vliclyquok8889 [place] [id number]. Antonella Medrano AST [Catalytic activity/Vol] 14 U/L Critically low 15-37 [facility] Comment on above: Performed By: #### C MP ####[facility] Wewworsbgs0583 [place] [id number]. Antonella Medrano Bilirubin [Mass/Vol] 0.3 mg/dL Normal 0.2-1.0 [facility] Comment on above: Performed By: #### C MP ####[facility] Hzyzkkquqr3845 [place] [id number]. Antonella Medrano Calcium [Mass/Vol] 8.3 mg/dL Critically low 8.5-10.1 [facility] Comment on above: Performed By: #### C MP ####[facility] Qljwhfmosx0589 [place] [id number]. Antonella Medrano Chloride [Moles/Vol] 104 mmol/L Normal 98-107 [facility] Comment on above: Performed By: #### C MP ####[facility] Xecipeqvvy2938 [place] [id number]. Antonella Medrano CO2 [Moles/Vol] 23.8 mmol/L Normal 21.0-32.0 [facility] Comment on above: Performed By: #### C MP ####[facility] Xllvidwren4159 [place] [id number]. Antonella Medrano Creatinine [Mass/Vol] 0.73 mg/dL Normal 0.55-1.[address] [facility] Comment on above: Performed By: #### C MP ####[facility] Orfpcxonfr3674 [place] [id number]. Antonella Medrano EGFR-AF FAROESE >60 Normal >=[address] [facility] Comment on above: Performed By: #### C MP ####[facility] Upkpuqlwnk5093 [place] [address]Dr. Antonella Medrano EGFR-NON AF FAROESE >60 Normal >=60 [facility] Comment on above: Performed By: #### C MP ####[facility] Suhwflmcry5890 [place] [address]Dr. Antonella Medrano Globulin (S) [Mass/Vol] 2.6 g/dL Normal [facility] Comment on above: Performed By: #### C MP ####[facility] Nguppbklid1808 [place] [address]Dr. Antonella Medrano Glucose [Mass/Vol] 320 mg/dL Critically high 74-106 T [facility] Comment on above: Performed By: #### C MP ####[facility] Nbozrjdkwi426[address] [place], [place] [address]Dr. Antonella Medrano Potassium [Moles/Vol] 4.5 mmol/L Normal 3.5-5.1 [facility] Comment on above: Performed By: #### C MP ####[facility] Tifrvdfkbp867[address] [place], [place] [address]Dr. Antonella Medrano Protein [Mass/Vol] 4.9 g/dL Critically low 6.4-8.2 Th [facility] Comment on above: Performed By: #### C MP ####[facility] Hmcagaazco0264[address] [place], [place] [address]Dr. Antonella Medrano Sodium [Moles/Vol] 136 mmol/L Normal 136-145 [facility] Comment on above: Performed By: #### C MP ####[facility] Zleufmkjdk486[address] [place], [place] [address]Dr. Antonella Medrano Urea nitrogen [Mass/Vol] 27.0 mg/dL Critically high 7.0-18.0 [facility] Comment on above: Performed By: #### C MP ####[facility] Ccwzdmfwro826[address] [place], [place] [address]Dr. Antonella Medrano Urea nitrogen/Creatinine [Mass ratio] 37.0 mg/mg Normal [facility] Comment on above: Performed By: #### C MP ####[facility] Tcffhicqiq[address] [place], [place] [id number]. Antonella Medrano CBC AUTO DIFFon 11-09-2022 BASO # 0.0 103/ul Normal 0.0-0.[address] [facility] Comment on above: Performed By: #### C BC ####[facility] Ohprrtaxqa4178 [place] [id number]. Antonella Medrano Basophils/100 WBC (Bld) 0.4 % Normal 0.2-2.[address] [facility] Comment on above: Performed By: #### C BC ####[facility] Guognemrnq5202 [place] [address]Dr. Antonella Medrano EO # 0.3 103/ul Normal 0.0-0.[address] [facility] Comment on above: Performed By: #### C BC ####[facility] Htgzkftutd4619 [place] [address]Dr. Antonella Mitchell Eosinophils/100 WBC (Bld) 3.6 % Normal 0.9-7.[address] [facility] Comment on above: Performed By: #### C BC ####[facility] Snoxmorgyl3142 [place] [address]Dr. Antonella Medrano Erythrocyte distribution width (RBC) [Ratio] 13.1 % Normal 11.0-15.[address] [facility] Comment on above: Performed By: #### C BC ####[facility] Ycoagiklcq0848 [place] [address]Dr. Antonella Medrano Hematocrit (Bld) [Volume fraction] 41.7 % Normal 36.0-48.[address] [facility] Comment on above: Performed By: #### C BC ####[facility] Nnlxqfldot4170 [place] [address]Dr. Antonella Medrano Hemoglobin (Bld) [Mass/Vol] 13.8 g/dL Normal 12.0-16.[address] [facility] Comment on above: Performed By: #### C BC ####[facility] Pubguuwgig237[address] [place], [place] [address]Dr. Antonella Medrano IG # 0.09 10e3/ul Critically high 0.00-0.[address] [facility] Comment on above: Performed By: #### C BC ####[facility] Ckufdpjdir4803 [place] [id number]. Antonella Medrano IG % 1.1 % Critically high 0.0-0.[address] [facility] Comment on above: Performed By: #### C BC ####[facility] Hurkbdiqcz0759 [place] [id number]. Antonella Medrano LYMPH # 1.8 103/ul Normal 1.2-3.[address] [facility] Comment on above: Performed By: #### C BC ####[facility] Gukegefefi7579 [place] [id number]. Antonella Medrano Lymphocytes/100 WBC (Bld) 21.2 % Normal 20.5-60.[address] [facility] Comment on above: Performed By: #### C BC ####[facility] Lsfdxmgyfn7718 [place] [address]Dr. Antonella Medrano MANUAL DIFF REQ NO Normal [facility] Comment on above: Performed By: #### C BC ####[facility] Hqkzmyndeq4101 [place] [id number]. Antonella Medrano MCH (RBC) [Entitic mass] 28.7 pg Normal 26.7-34.[address] [facility] Comment on above: Performed By: #### C BC ####[facility] Fuxnhntghj5772 [place] [id number]. Antonella Medrano MCHC (RBC) [Mass/Vol] 33.1 g/dL Normal 29.9-35.[address] [facility] Comment on above: Performed By: #### C BC ####[facility] [address]lavtp[address] [place], [place] [id number]. Antonella Medrano MCV (RBC) [Entitic vol] 86.7 fL Normal 81.0-99.[address] [facility] Comment on above: Performed By: #### C BC ####[facility] Ljoizompsz35[address] [place] [id number]. Antonella Medrano MONO # 0.9 103/ul Critically high 0.3-0.[address] [facility] Comment on above: Performed By: #### C BC ####[facility] Hzbfsnpxrw3612 [place] [id number]. Antonella Medrano Monocytes/100 WBC (Bld) 10.9 % Normal 1.7-12.[address] [facility] Comment on above: Performed By: #### C BC ####[facility] Yaxshexozz2769 [place] [id number]. Antonella Medrano NEUT # 5.2 103/ul Normal 1.4-6.5 [facility] Comment on above: Performed By: #### C BC ####[facility] Pdeodenktw8846 [place] [id number]. Antonella Medrano Neutrophils/100 WBC (Bld) 62.8 % Normal 43.0-75.[address] [facility] Comment on above: Performed By: #### C BC ####[facility] Komjmbacih7219 [place] [id number]. Antonella Medrano Platelet mean volume (Bld) [Entitic vol] 10.6 fL Normal 9.5-13.5 [facility] Comment on above: Performed By: #### C BC ####[facility] Qozxosnses8048 [place] [id number]. Antonella Medrano PLT 270 103/ul Normal 150-[address] [facility] Comment on above: Performed By: #### C BC ####[facility] Gujclewiat1971 [place] [id number]. Antonella Medrano RBC 4.81 106/ul Normal 4.20-5.[address] [facility] Comment on above: Performed By: #### C BC ####[facility] Oiqvvsdmhe4105 [place] [id number]. Antonella Medrano WBC 8.3 103/ul Normal 4.0-11.[address] [facility] Comment on above: Performed By: #### C BC ####[facility] Qbqsrfkrol119[address] [place] [address]Dr. Antonella Medrano POINT OF CARE GLUCOSEon 10-24 Glucose [Mass/Vol] 451 mg/dL Critically high 74-106 T [facility] Comment on above: Performed By: #### P OCGLUC ####[facility] Ozcqrrltxd8235 [place] [id number]. Antonella Medrano Glucose [Mass/Vol] 341 mg/dL Critically high 74-106 [facility] Comment on above: Performed By: #### P OCGLUC ####[facility] Nzgyexytfy1697 [place] [id number]. Antonella Medrano Glucose [Mass/Vol] 440 mg/dL Critically high 74-106 [facility] Comment on above: Performed By: #### P OCGLUC ####[facility] Vzoeogfqbw1632 [place] [address]Dr. Antonella Medrano Glucose [Mass/Vol] 295 mg/dL Critically high 74-106 [facility] Comment on above: Performed By: #### P OCGLUC ####[facility] Yozibpzena6881 [place] [address]Dr. Mariafilemon Medrano PROF 14(COMP METB)on 023 Albumin [Mass/Vol] 2.4 g/dL Critically low 3.4-5.0 [facility] Comment on above: Performed By: #### C MP ####[facility] Wvnyhjeqxe[address] [place] [address]Dr. Antonella Mitchell Albumin/Globulin [Mass ratio] 0.8 {ratio} Normal [facility] Comment on above: Performed By: #### C MP ####[facility] Dyudrhuvfs1451 [place] [address]Dr. Antonella Mitchell ALP [Catalytic activity/Vol] 121 U/L Critically high 46-116 [facility] Comment on above: Performed By: #### C MP ####[facility] Ioxterdwfn8998 [place] [address]Dr. Antonella Mitchell ALT [Catalytic activity/Vol] 17 U/L Normal 14-59 [facility] Comment on above: Performed By: #### C MP ####[facility] Yjquzcxkdh0902 [place] [address]Dr. Antonella Mitchell Anion gap [Moles/Vol] 11.7 mmol/L Normal [facility] Comment on above: Performed By: #### C MP ####[facility] Tcuukitfmh8021 [place] [id number]. Antonella Medrano AST [Catalytic activity/Vol] 15 U/L Normal 15-[address] [facility] Comment on above: Performed By: #### C MP ####[facility] Ptvffxewhy2551 [place] [id number]. Antonella Medrano Bilirubin [Mass/Vol] 0.4 mg/dL Normal 0.2-1.0 [facility] Comment on above: Performed By: #### C MP ####[facility] Xhznhczskw1499 [place] [id number]. Antonella Medrano Calcium [Mass/Vol] 8.3 mg/dL Critically low 8.5-10.1 Th [facility] Comment on above: Performed By: #### C MP ####[facility] Xgvzacbwfg[address] [place], [place] [address]Dr. Antonella Medrano Chloride [Moles/Vol] 102 mmol/L Normal 98-107 [facility] Comment on above: Performed By: #### C MP ####[facility] Imcdfwppie7[address] [place], [place] [id number]. Antonella Medrano CO2 [Moles/Vol] 26.4 mmol/L Normal 21.0-32.0 [facility] Comment on above: Performed By: #### C MP ####[facility] Occwzjmuhe5[address] [place], [place] [address]Dr. Antonella Medrano Creatinine [Mass/Vol] 0.92 mg/dL Normal 0.55-1.02 [facility] Comment on above: Performed By: #### C MP ####[facility] Hmndqizocs9813 [place] [id number]. Antonella Medrano EGFR-AF FAROESE >60 Normal >=[address] [facility] Comment on above: Performed By: #### C MP ####[facility] Slfdcravfp[address] [place], [place] [id number]. Antonella Medrano EGFR-NON AF FAROESE >60 Normal >=[address] [facility] Comment on above: Performed By: #### C MP ####[facility] Srexgxbmvx756[address] [place], [place] [address]Dr. Antonella Mitchell Globulin (S) [Mass/Vol] 3.0 g/dL Normal [facility] Comment on above: Performed By: #### C MP ####[facility] Xkyrpxmiee5262 [place] [address]Dr. Antonella Medrano Glucose [Mass/Vol] 285 mg/dL Critically high 74-106 T [facility] Comment on above: Performed By: #### C MP ####[facility] Akjbholnpz860[address] [place], [place] [address]Dr. Antonella Medrano Potassium [Moles/Vol] 4.1 mmol/L Normal 3.5-5.1 [facility] Comment on above: Performed By: #### C MP ####[facility] Ppbhhhhaup426[address] [place], [place] [address]Dr. Antonella Medrano Protein [Mass/Vol] 5.4 g/dL Critically low 6.4-8.2 Th [facility] Comment on above: Performed By: #### C MP ####[facility] Bpvwybqwpj1875[address] [place], [place] [address]Dr. Antonella Medrano Sodium [Moles/Vol] 136 mmol/L Normal 136-145 [facility] Comment on above: Performed By: #### C MP ####[facility] Zrudtjvpwx44[address] [place], [place] [address]Dr. Antonella Medrano Urea nitrogen [Mass/Vol] 14.0 mg/dL Normal 7.0-18.0 [facility] Comment on above: Performed By: #### C MP ####[facility] Shxcewmrau413[address] [place], [place] [address]Dr. Antonella Medrano Urea nitrogen/Creatinine [Mass ratio] 15.2 mg/mg Normal [facility] Comment on above: Performed By: #### C MP ####[facility] Ynameellkg6910[address] [place], [place] [address]Dr. Antonella Medrano BLOOD GASES BTYon 11-08-2022 02 MODE ROOM AIR Normal [facility] Comment on above: Performed By: #### A BG ####[facility] Mqfebltyjc524[address] [place], [place] [address]Dr. Antonella Medrano ALLENS TEST Positive Normal [facility] Comment on above: Performed By: #### A BG ####[facility] Xzxeihlhcf5357 [place] [address]Dr. Antonella Medrano Base excess Calc (Bld) [Moles/Vol] 1.5 mmol/L Normal -2.0-2.0 [facility] Comment on above: Performed By: #### A BG ####[facility] Djxqzindrq796[address] [place], [place] [address]Dr. Antonella Medrano BIPAP PRESSURE Normal [facility] Comment on above: Performed By: #### A BG ####[facility] Vqwdemrnuv0627[address] [place], [place] [address]Dr. Antonella Medrano CPAP Normal [facility] Comment on above: Performed By: #### A BG ####[facility] Awpwzkfrgy600[address] [place], [place] [address]Dr. Antonella Medrano FIO2 Normal [facility] Comment on above: Performed By: #### A BG ####[facility] Lvqedtyreg404[address] [place], [place] [address]Dr. Antonella Medrano HCO3 (Bld) [Moles/Vol] 26.1 mmol/L Critically high 22.0-[address] [facility] Comment on above: Performed By: #### A BG ####[facility] Hwjyhaubbj[address] [place], [place] [address]Dr. Antonella Medrano LPM Normal [facility] Comment on above: Performed By: #### A BG ####[facility] Msdggenxmj850[address] [place], [place] [address]Dr. Antonella Medrano MINUTE VOLUME Normal [facility] Comment on above: Performed By: #### A BG ####[facility] Hnwueztoiz388[address] [place], [place] [address]Dr. Antonella Medrano Oxygen (Bld) [Partial pressure] 78.1 mm[Hg] Critically low 80.0-100.[address] [facility] Comment on above: Performed By: #### A BG ####[facility] Rdbieryfuj2027[address] [place], [place] [address]Dr. Antonella Medrano Oxygen saturation in Blood 97.0 % Normal 95.0-100.0 [facility] Comment on above: Performed By: #### A BG ####[facility] Akhfrloaaf0860 [place] [address]Dr. Antonella Medrano PCO2 41.0 mmHg Normal 35.0-45.0 [facility] Comment on above: Performed By: #### A BG ####[facility] Emjnavcqtk1575[address] [place], [place] [address]Dr. Antonella Medrano PEEP [facility] Comment on above: Performed By: #### A BG ####[facility] Huaesosuhc6445[address] [place], [place] [address]Dr. Antonella Medrano pH (Bld) 7.412 [pH] Normal 7.350-7.450 [facility] Comment on above: Performed By: #### A BG ####[facility] Vrjfamsnso3320[address] [place], [place] [address]Dr. Antonella Medrano PIP [facility] Comment on above: Performed By: #### A BG ####[facility] Zwulrcqjaw9927[address] [place], [place] [address]Dr. Antonella Medrano PS [facility] Comment on above: Performed By: #### A BG ####[facility] Nguixluvmb958[address] [place], [place] [address]Dr. Antonella Medrano PUNCTURE SITE RR [facility] Comment on above: Performed By: #### A BG ####[facility] Qhbbfiqjkl8940[address] [place], [place] [address]Dr. Antonella Medrano RATE [facility] Comment on above: Performed By: #### A BG ####[facility] Ulcvruzdny498[address] [place], [place] [address]Dr. Antonella Medrano VENT MODE [facility] Comment on above: Performed By: #### A BG ####[facility] Nqolxtsvul597[address] [place], [place] [address]Dr. Antonella Medrano VT [facility] Comment on above: Performed By: #### A BG ####[facility] Lkigwllrdk388[address] [place], [place] [address]Dr. Antonella Medrano CBC AUTO DIFFon 02-16-2023 BASO # 0.1 103/ul Normal 0.0-0.[address] [facility] Comment on above: Performed By: #### C BC ####[facility] Jrdpqqbyuc9496 [place] [address]Dr. Antonella Medrano Basophils/100 WBC (Bld) 0.7 % Normal 0.2-2.[address] [facility] Comment on above: Performed By: #### C BC ####[facility] Wjiliruebn628[address] [place], [place] [address]Dr. Antonella Medrano EO # 0.3 103/ul Normal 0.0-0.[address] [facility] Comment on above: Performed By: #### C BC ####[facility] Konxzkqwyn4750[address] [place], [place] [address]Dr. Antonella Medrano Eosinophils/100 WBC (Bld) 4.5 % Normal 0.9-7.[address] [facility] Comment on above: Performed By: #### C BC ####[facility] Revdyqwduk735[address] [place], [place] [address]Dr. Antonella Medrano Erythrocyte distribution width (RBC) [Ratio] 13.2 % Normal 11.0-15.[address] [facility] Comment on above: Performed By: #### C BC ####[facility] Sakjrufiyd0826[address] [place], [place] [address]Dr. Antonella Medrano Hematocrit (Bld) [Volume fraction] 46.0 % Normal 36.0-48.[address] [facility] Comment on above: Performed By: #### C BC ####[facility] Cleqlayghe440[address] [place], [place] [address]Dr. Antonella Mderano Hemoglobin (Bld) [Mass/Vol] 15.5 g/dL Normal 12.0-16.[address] [facility] Comment on above: Performed By: #### C BC ####[facility] Nijvvtxaum008[address] [place], [place] [address]Dr. Antonella Medrano IG # 0.09 10e3/ul Critically high 0.00-0.[address] [facility] Comment on above: Performed By: #### C BC ####[facility] Twarursyss0290 [place] [id number]. Mariafilemon Medrano IG % 1.2 % Critically high 0.0-0.[address] [facility] Comment on above: Performed By: #### C BC ####[facility] Cpjtqudxgj9698 [place] [address]Dr. Antonella Mitchell LYMPH # 1.9 103/ul Normal 1.2-3.[address] [facility] Comment on above: Performed By: #### C BC ####[facility] Zknwijhjgs0235 [place] [address]Dr. Mariafilemon Medrano Lymphocytes/100 WBC (Bld) 25.9 % Normal 20.5-60.[address] [facility] Comment on above: Performed By: #### C BC ####[facility] Qkinsahwcv5500 [place] [address]Dr. Mariafilemon Medrano MANUAL DIFF REQ NO Normal [facility] Comment on above: Performed By: #### C BC ####[facility] Urssrrdxul5545 [place] [address]Dr. Antonella Mitchell MCH (RBC) [Entitic mass] 28.7 pg Normal 26.7-34.[address] [facility] Comment on above: Performed By: #### C BC ####[facility] Jboophaxxx539[address] [place], [place] [address]Dr. Antonella Mitchell MCHC (RBC) [Mass/Vol] 33.7 g/dL Normal 29.9-35.[address] [facility] Comment on above: Performed By: #### C BC ####[facility] Hmihrwjhvz459[address] [place], [place] [address]Dr. Antonella Mitchell MCV (RBC) [Entitic vol] 85.2 fL Normal 81.0-99.[address] [facility] Comment on above: Performed By: #### C BC ####[facility] Muchhcyvrc7630[address] [place], [place] [address]Dr. Antonella Medrano MONO # 0.7 103/ul Normal 0.3-0.[address] [facility] Comment on above: Performed By: #### C BC ####[facility] Hunmetmggb59[address] [place], [place] [address]Dr. Antonella Medrano Monocytes/100 WBC (Bld) 9.4 % Normal 1.7-12.[address] [facility] Comment on above: Performed By: #### C BC ####[facility] Ipgoizlsmk6225 [place] [id number]. Antonella Medrano NEUT # 4.3 103/ul Normal 1.4-6.[address] [facility] Comment on above: Performed By: #### C BC ####[facility] Lmldoekzud8284 [place] [id number]. Antonella Medrano Neutrophils/100 WBC (Bld) 58.3 % Normal 43.0-75.[address] [facility] Comment on above: Performed By: #### C BC ####[facility] Mpiucysnxy4211 [place] [address]Dr. Antonella Medrano Platelet mean volume (Bld) [Entitic vol] 10.4 fL Normal 9.5-13.[address] [facility] Comment on above: Performed By: #### C BC ####[facility] Awscqqtxhh1457 [place] [id number]. Antonella Medrano PLT 301 103/ul Normal 150-[address] [facility] Comment on above: Performed By: #### C BC ####[facility] Isopurylsv7647 [place] [id number]. Antonella Medrano RBC 5.40 106/ul Normal 4.20-5.[address] [facility] Comment on above: Performed By: #### C BC ####[facility] Mmcilrxhtq6318 [place] [id number]. Antonella Medrano WBC 7.3 103/ul Normal 4.0-11.[address] [facility] Comment on above: Performed By: #### C BC ####[facility] Ovhhpoxppx24[address] [place] [address]Dr. Antonella Medrano CT CSPINE WO CONon 3 CT CSPINE WO CON Normal [facility] CT HEAD WO CONon 11-08-2022 CT HEAD WO CON Normal [facility] CULTURE URINEon 11-08-2022 CULTURE URINE Culture Observations : HEAVY GROWTH OF MIXED GENITAL LUCY. NO POTENTIAL PATHOGENS SEEN. Normal [facility] Comment on above: Performed By: #### U RCX ####[facility] Lekiloyrjb096[address] [place], [place] [address]Dr. Antonella Medrano Covid-19 PCR (CVDTB)on 10-24 SARS-CoV-2 (COVID-19) RNA TAISHA+probe Ql (Unsp spec) Not detected Normal NOT DETECTED [facility] Comment on above: Result Comment: When diagnostic testing is negative, the possibility of a false negative should be considered inthe context of a patient's recent exposures and the presence of clinical signs and symptomsconsistent with SARS-CoV-2.This test is not yet approved or cleared by the [place] FDA. When there are no FDA-approved or cleared tests available, and other criteria are met, FDA can make tests available under an emergency access mechanism called an Emergency Use Authorization (EUA). The EUA for this test is supported by the [place] of Health and Human Service's declaration that circumstances exist to justify the emergency use of in vitro diagnostics for the detection and/or diagnosis of the virus that causes COVID-19. This EUA will remain in effect for the duration of the COVID-19 declaration justifying emergency of IVDs, unless it is terminated or revoked by the FDA (after which the test may no longer be used). Performed By: #### C VDTBH ####[facility] Arhxmodqoa523[address] [place], [place] [address]Dr. Antonella Medrano ER URINE PROFILEon 3 Bilirubin Ql (U) Negative Normal NEGATIVE [facility] Comment on above: Performed By: #### U MICRO, ERUR ####[facility] Ovpyrhfbon600[address] [place], [place] [address]Dr. Antonella Medrano Clarity (U) CLEAR Normal CLEAR [facility] Comment on above: Performed By: #### U MICRO, ERUR ####[facility] Gqksrrbpiz52[address] [place], [place] [address]Dr. Antonella Medrano Color (U) LT. YELLOW Normal YELLOW [facility] Comment on above: Performed By: #### U MICRO, ERUR ####[facility] Ewrdrtirar854[address] [place], [place] [address]Dr. Antonella LABOY A micrscopic examina tion will be performed if indicated. Normal [facility] Comment on above: Performed By: #### U MICRO, ERUR ####[facility] Icraujvqvy869[address] [place], [place] [address]Dr. Antonella Medrano Glucose Ql (U) >[address] [facility] Comment on above: Performed By: #### U MICRO, ERUR ####[facility] Xwqndlimwu13[address] [place], [place] [address]Dr. Antonella Medrano Hemoglobin Ql (U) SMALL Abnormal NEGATIVE [facility] Comment on above: Performed By: #### U MICRO, ERUR ####[facility] Ffezzttqsa545[address] [place], [place] [address]Dr. Antonella Medrano Ketones Ql (U) Negative Normal NEGATIVE [facility] Comment on above: Performed By: #### U MICRO, ERUR ####[facility] Ylsuusatti8824[address] [place], [place] [address]Dr. Antonella Medrano LEUKOCYTES TRACE Abnormal NEGATIVE [facility] Comment on above: Performed By: #### U MICRO, ERUR ####[facility] Xbbblckfrd167[address] [place], [place] [address]Dr. Antonella Medrano Nitrite Ql (U) Negative Normal NEGATIVE [facility] Comment on above: Performed By: #### U MICRO, ERUR ####[facility] Laryqdwgvw345[address] [place], [place] [address]Dr. Antonella Medrano pH (U) 5.5 [pH] Normal 5-[address] [facility] Comment on above: Performed By: #### U MICRO, ERUR ####[facility] Mhgzefycvg159[address] [place], [place] [address]Dr. Antonella Medrano Protein (U) [Mass/Vol] 100 mg/dL Abnormal NEGAT LAZ/ TRACE [facility] Comment on above: Performed By: #### U MICRO, ERUR ####[facility] Jhskgxcgif336[address] [place], [place] [address]Dr. Antonella Medrano SPEC GRAVITY 1.010 Normal 1.005-<=1.[address] [facility] Comment on above: Performed By: #### U MICRO, ERUR ####[facility] Rnqwgxuoxp6802 [place] [address]Dr. Antonella Medrano UR MICRO IND INDICATED Normal [facility] Comment on above: Performed By: #### U MICRO, ERUR ####[facility] Aassvphpti6059 [place] [address]Dr. Antonella Medrano Urobilinogen Qn (U) 0.2 {Oleg'U}/dL Normal 0.2 - 1. 0 [facility] Comment on above: Performed By: #### U MICRO, ERUR ####[facility] Ppljvavqmc25[address] [place] [address]Dr. Antonella Medrano POINT OF CARE GLUCOSEon 10-24 Glucose [Mass/Vol] 290 mg/dL Critically high 74-106 T [facility] Comment on above: Performed By: #### P OCGLUC ####[facility] Uypfginttl959[address] [place], [place] [address]Dr. Antonella Medrano PROF 14(COMP METB)on 023 Albumin [Mass/Vol] 3.2 g/dL Critically low 3.4-5.0 [facility] Comment on above: Performed By: #### H NAI, CMP ####[facility] Ehygidjzfg11[address] [place] [address]Dr. Antonella Medrano Albumin/Globulin [Mass ratio] 0.8 {ratio} Normal [facility] Comment on above: Performed By: #### H NAI, CMP ####[facility] Mwimbshprq9445 [place] [address]Dr. Antonella Medrano ALP [Catalytic activity/Vol] 186 U/L Critically high 46-116 [facility] Comment on above: Performed By: #### H NAI, CMP ####[facility] Hcrnkkxsjz0718 [place] [address]Dr. Antonella Medrano ALT [Catalytic activity/Vol] 23 U/L Normal 14-59 [facility] Comment on above: Performed By: #### H NAI, CMP ####[facility] Zadklwgqal8281 [place] [address]Dr. Antonella Medrano Anion gap [Moles/Vol] 11.3 mmol/L Normal Th [facility] Comment on above: Performed By: #### H NAI, CMP ####[facility] Qdfkwdvcac5418 [place] [address]Dr. Antonella Medrano AST [Catalytic activity/Vol] 21 U/L Normal 15-[address] [facility] Comment on above: Performed By: #### H NAI, CMP ####[facility] Kvupegaklw8218 [place] [address]Dr. Antonella Medrano Bilirubin [Mass/Vol] 0.3 mg/dL Normal 0.2-1.[address] [facility] Comment on above: Performed By: #### Magy TRIMBLE, CMP ####[facility] Ojzvchlyjn[address] [place], [place] [address]Dr. Antonella Medrano Calcium [Mass/Vol] 9.6 mg/dL Normal 8.5-10.[address] [facility] Comment on above: Performed By: #### Magy TRIMBLE, CMP ####[facility] Lznzcfyqgq354[address] [place], [place] [address]Dr. Antonella Medrano Chloride [Moles/Vol] 98 mmol/L Normal 98-[address] [facility] Comment on above: Performed By: #### Magy TRIMBLE, CMP ####[facility] Dqbdieicvy37[address] [place], [place] [address]Dr. Antonella Medrano CO2 [Moles/Vol] 30.0 mmol/L Normal 21.0-32.[address] [facility] Comment on above: Performed By: #### Magy TRIMBLE, CMP ####[facility] Xzaxroviqp755[address] [place], [place] [address]Dr. Antonella Medrano Creatinine [Mass/Vol] 0.75 mg/dL Normal 0.55-1.[address] [facility] Comment on above: Performed By: #### Magy TRIMBLE, CMP ####[facility] Mtneucngmb328[address] [place], [place] [address]Dr. Antonella Medrano EGFR-AF FAROESE >60 Normal >=[address] [facility] Comment on above: Performed By: #### Magy TRIMBLE, CMP ####[facility] Tftcwtzgiu4945 [place] [id number]. Antonella Medrano EGFR-NON AF FAROESE >60 Normal >=60 [facility] Comment on above: Performed By: #### H NAI, CMP ####[facility] Kwvuomxffn0504 [place] [address]Dr. Antonella Medrano Globulin (S) [Mass/Vol] 4.0 g/dL Normal [facility] Comment on above: Performed By: #### H NAI, CMP ####[facility] Oiotlhvltd9[address] [place], [place] [address]Dr. Antonella Medrano Glucose [Mass/Vol] 292 mg/dL Critically high 74-106 [facility] Comment on above: Performed By: #### H NAI, CMP ####[facility] Gbgyhxhnyu8[address] [place], [place] [address]Dr. Antonella Medrano Potassium [Moles/Vol] 4.3 mmol/L Normal 3.5-5.1 [facility] Comment on above: Performed By: #### H NAI, CMP ####[facility] Koeytmdshi30[address] [place], [place] [address]Dr. Antonella Medrano Protein [Mass/Vol] 7.2 g/dL Normal 6.4-8.2 [facility] Comment on above: Performed By: #### H NAI, CMP ####[facility] Ecgohpkxvf205[address] [place], [place] [address]Dr. Antonella Medrano Sodium [Moles/Vol] 135 mmol/L Critically low 136-145 [facility] Comment on above: Performed By: #### H NAI, CMP ####[facility] [address]ktmf[address] [place] [address]Dr. Antonella Medrano Urea nitrogen [Mass/Vol] 14.0 mg/dL Normal 7.0-18.0 [facility] Comment on above: Performed By: #### H NAI, CMP ####[facility] Dsgellspgy[address] [place], [place] [address]Dr. Antonella Medrano Urea nitrogen/Creatinine [Mass ratio] 18.7 mg/mg Normal [facility] Comment on above: Performed By: #### H STROPN, CMP ####[facility] Upvvtsnlim[address] [place] [address]Dr. Antonella Medrano TROPONIN, HIGH SENSITIVITYon 11-08-2022 HSTROP 69.8 pg/mL Critically high 4.0-51.[address] [facility] Comment on above: Result Comment: CUT- OFF POINTS HAVE BEEN ESTABLISHED BASED ON THE FOURTH UNIVERSAL DEFINITIONS OF MYOCARDIALINFARCTION. THE UPPER REFERENCE LIMIT (URL) OF TROPONIN, DEFINED THE 99TH PERCENTILE OFcTnI DISTRIBUTION IN A REFERENCE POPULATION, HAS BEEN CONFIRMED THE DECISION THRESHOLDFOR DC DIAGNOSIS. Performed By: #### H STROPN, CMP ####[facility] [address]wcgqqlanl[address] [place] [address]Dr. Antonella Medrano HSTROP 69.8 pg/mL Critically high 4.0-51.[address] [facility] Comment on above: Result Comment: CUT- OFF POINTS HAVE BEEN ESTABLISHED BASED ON THE FOURTH UNIVERSAL DEFINITIONS OF MYOCARDIALINFARCTION. THE UPPER REFERENCE LIMIT (URL) OF TROPONIN, DEFINED THE 99TH PERCENTILE OFcTnI DISTRIBUTION IN A REFERENCE POPULATION, HAS BEEN CONFIRMED THE DECISION THRESHOLDFOR DC DIAGNOSIS. Performed By: #### H STROPN ####[facility] Aititkztxl[address] [place], [place] [address]Dr. Antonella Medrano URINE MICROSCOPIC ONLYon BACTERIA TRACE Abnormal NONE SEEN [facility] Comment on above: Performed By: #### U MICRO, ERUR ####[facility] Ipkacnaobc[address] [place], [place] [address]Dr. Antonella Mitchell Bacteria identified Cx Nom (U) INDICATED Normal [facility] Comment on above: Performed By: #### U MICRO, ERUR ####[facility] Ttpgaeraup[address] [place] [address]Dr. Antonella Medrano CAST NONE SEEN Normal NONE SEEN [facility] Comment on above: Performed By: #### U MICRO, ERUR ####[facility] Hrudlvwjze[address] [place], [place] [address]Dr. Antonella Medrano Crystals LM Nom (Urine sed) NONE SEEN Normal NONE SEEN [facility] Comment on above: Performed By: #### U MICRO, ERUR ####[facility] Ijixyngued[address] [place] [id number]. Antonella Medrano Epithelial cells LM Ql (Urine sed) FEW Abnormal NONE SEEN /RARE [facility] Comment on above: Performed By: #### U MICRO, ERUR ####[facility] Cpqupkvppr0474 [place], [place] [address]Sp. Antonella Medrano MUCOUS NONE SEEN Normal NONE SEEN [facility] Comment on above: Performed By: #### U MICRO, ERUR ####[facility] Svewruhtay[address] [place] [id number]. Antonella Medrano RBC 2-5 Abnormal 0-[address] [facility] Comment on above: Performed By: #### U MICRO, ERUR ####[facility] Niqgflxfvv04[address] [place] [address]Dr. Antonella Medrano WBC 10-20 Abnormal NONE SEEN [facility] Comment on above: Performed By: #### U MICRO, ERUR ####[facility] Zbjomvhtih47[address] [place] [id number]. Antonella Medrano YEAST PRESENT Abnormal NONE SEEN [facility] Comment on above: Result Comment: 3+ b udding Performed By: #### U MICRO, ERUR ####[facility] Tveninjfnb17[address] [place] [address]Dr. Antonella Medrano XR CHEST 2 Von 11-08-2022 XR CHEST [address] [facility] XR KNEE RT 4V or >on 023 XR KNEE RT 4V or > Normal [facility] CT CSPINE WO CONon 2 CT CSPINE WO CON Normal [facility] CT HEAD WO CONon 08-23-2022 CT HEAD WO CON Normal [facility] XR CHEST 1 Von 08-23-2022 XR CHEST [address] [facility] XR HIP LT 2 3V W PELVISon XR HIP LT 2 3V W PELVIS Normal [facility] CULTURE URINEon 08-02-2022 CULTURE URINE Normal [facility] Comment on above: Performed By: #### U RCX ####[facility] Tybdatqffm[address] [place] [address]Dr. Antonella Medrano CBC AUTO DIFFon 07-31-2022 BASO # 0.0 103/ul Normal 0.0-0.[address] [facility] Comment on above: Performed By: #### C BC ####[facility] Tfornoyrtu[address] [place] [address]Dr. Antonella Mitchell Basophils/100 WBC (Bld) 0.4 % Normal 0.2-2.[address] [facility] Comment on above: Performed By: #### C BC ####[facility] Xrcydbafuj86[address] [place], [place] [address]Dr. Antonella Mitchell EO # 0.1 103/ul Normal 0.0-0.[address] [facility] Comment on above: Performed By: #### C BC ####[facility] Vlstlccsgl9[address] [place], [place] [address]Dr. Antonella Mitchell Eosinophils/100 WBC (Bld) 1.3 % Normal 0.9-7.[address] [facility] Comment on above: Performed By: #### C BC ####[facility] Tuknjoexxu[address] [place], [place] [address]Dr. Antonella Medrano Erythrocyte distribution width (RBC) [Ratio] 13.4 % Normal 11.0-15.[address] [facility] Comment on above: Performed By: #### C BC ####[facility] Ihwioofxdu[address] [place], [place] [address]Dr. Antonella Medrano Hematocrit (Bld) [Volume fraction] 43.4 % Normal 36.0-48.[address] [facility] Comment on above: Performed By: #### C BC ####[facility] Fasyyemfma[address] [place], [place] [address]Dr. Antonella Medrano Hemoglobin (Bld) [Mass/Vol] 14.6 g/dL Normal 12.0-16.[address] [facility] Comment on above: Performed By: #### C BC ####[facility] Jqdwyunowu8[address] [place], [place] [address]Dr. Antonella Medrano IG # 0.05 10e3/ul Critically high 0.00-0.[address] [facility] Comment on above: Performed By: #### C BC ####[facility] Iixnhqwtmw66[address] [place] [id number]. Antonella Medrano IG % 0.6 % Critically high 0.0-0.[address] [facility] Comment on above: Performed By: #### C BC ####[facility] Tyrirlwbjl9275 [place] [id number]. Antonella Medrano LYMPH # 1.0 103/ul Critically low 1.2-3.[address] [facility] Comment on above: Performed By: #### C BC ####[facility] Jcxklweeee2553 [place] [id number]. Antonella Medrano Lymphocytes/100 WBC (Bld) 13.4 % Critically low 20.5-60.[address] [facility] Comment on above: Performed By: #### C BC ####[facility] Ptxxvwsmet[address] [place] [address]Dr. Antonella Mitchell MANUAL DIFF REQ NO Normal [facility] Comment on above: Performed By: #### C BC ####[facility] Eiugdqmsdx4052 [place] [address]Dr. Antonella Medrano MCH (RBC) [Entitic mass] 28.9 pg Normal 26.7-34.[address] [facility] Comment on above: Performed By: #### C BC ####[facility] Hqnuxjdwhf7[address] [place] [address]Dr. Antonella Medrano MCHC (RBC) [Mass/Vol] 33.6 g/dL Normal 29.9-35.[address] [facility] Comment on above: Performed By: #### C BC ####[facility] Iggipjpsps2415 [place] [id number]. Antonella Medrano MCV (RBC) [Entitic vol] 85.9 fL Normal 81.0-99.[address] [facility] Comment on above: Performed By: #### C BC ####[facility] Vkcjzjpfcj[address] [place], [place] [address]Dr. Antonella Mitchell MONO # 0.7 103/ul Normal 0.3-0.[address] [facility] Comment on above: Performed By: #### C BC ####[facility] Hxtlzhbatr1923 [place] [id number]. Antonella Medrano Monocytes/100 WBC (Bld) 9.0 % Normal 1.7-12.[address] [facility] Comment on above: Performed By: #### C BC ####[facility] Efaytvaink4[address] [place] [id number]. Antonella Medrano NEUT # 5.9 103/ul Normal 1.4-6.[address] [facility] Comment on above: Performed By: #### C BC ####[facility] Aoazcqlzsk67[address] [place] [address]Dr. Antonella Medrano Neutrophils/100 WBC (Bld) 75.3 % Critically high 43.0-75.[address] [facility] Comment on above: Performed By: #### C BC ####[facility] Hzykdhcvdj7218 [place] [address]Dr. Antonella Medrano Platelet mean volume (Bld) [Entitic vol] 10.9 fL Normal 9.5-13.[address] [facility] Comment on above: Performed By: #### C BC ####[facility] Imkhufjaaa7[address] [place] [address]Dr. Antonella Medrano PLT 245 103/ul Normal 150-[address] [facility] Comment on above: Performed By: #### C BC ####[facility] Brgznbvfur6[address] [place] [address]Dr. Antonella Medrano RBC 5.05 106/ul Normal 4.20-5.[address] [facility] Comment on above: Performed By: #### C BC ####[facility] Kzbdvybgdc95[address] [place] [address]Dr. Antonella Medrnao WBC 7.8 103/ul Normal 4.0-11.[address] [facility] Comment on above: Performed By: #### C BC ####[facility] Jqzyyamifj[address] [place], [place] [address]Dr. Antonella Medrano CT ABD/PELV W CONon 07-31-[address] ABD/PELV W CON Normal [facility] CT CSPINE WO CONon 2 CT CSPINE WO CON Normal [facility] CT HEAD WO CONon 07-31-2022 CT HEAD WO CON Normal [facility] ER URINE PROFILEon 2 Bilirubin Ql (U) Negative Normal NEGATIVE [facility] Comment on above: Performed By: #### U MICRO, ERUR ####[facility] Wwbwurtmmi34[address] [place] [address]Dr. Antonella Medrano Clarity (U) CLEAR Normal CLEAR [facility] Comment on above: Performed By: #### U MICRO, ERUR ####[facility] Eusmoxlpne38[address] [place] [address]Dr. Antonella Medrano Color (U) LT. YELLOW Normal YELLOW [facility] Comment on above: Performed By: #### U MICRO, ERUR ####[facility] Xwakhzshso[address] [place], [place] [address]Dr. Antonella Medrano ERUAHD A micrscopic examina tion will be performed if indicated. Normal [facility] Comment on above: Performed By: #### U MICRO, ERUR ####[facility] J[address]jfhucij[address] [place], [place] [address]Dr. Antonella Medrano Glucose Ql (U) >[address] [facility] Comment on above: Performed By: #### U MICRO, ERUR ####[facility] Hqqpemktjh[address] [place], [place] [address]Dr. Antonella Medrano Hemoglobin Ql (U) SMALL Abnormal NEGATIVE [facility] Comment on above: Performed By: #### U MICRO, ERUR ####[facility] Iaorterbhg709[address] [place], [place] [address]Dr. Antonella Medrano Ketones Ql (U) Negative Normal NEGATIVE [facility] Comment on above: Performed By: #### U MICRO, ERUR ####[facility] Owmbazrgfa[address] [place], [place] [address]Dr. Antonella Medrano LEUKOCYTES Negative Normal NEGATIVE [facility] Comment on above: Performed By: #### U MICRO, ERUR ####[facility] Zpfficggng7[address] [place], [place] [address]Dr. Antonella Medrano Nitrite Ql (U) Negative Normal NEGATIVE [facility] Comment on above: Performed By: #### U MICRO, ERUR ####[facility] Mkartragyb6[address] [place] [address]Dr. Antonella Medrano pH (U) 5.5 [pH] Normal 5-9 [facility] Comment on above: Performed By: #### U MICRO, ERUR ####[facility] Glsclczzng[address] [place], [place] [address]Dr. Antonella Medrano Protein (U) [Mass/Vol] 30 mg/dL Abnormal NEGAT LAZ/ TRACE [facility] Comment on above: Performed By: #### U MICRO, ERUR ####[facility] Vqfylovqjt2735 [place] [address]Dr. Antonella Medrano SPEC GRAVITY 1.010 Normal 1.005-<=1.0 25 [facility] Comment on above: Performed By: #### U MICRO, ERUR ####[facility] Izlgqtlkfz833[address] [place], [place] [address]Dr. Antonella Medrano UR MICRO IND INDICATED Normal [facility] Comment on above: Performed By: #### U MICRO, ERUR ####[facility] Iivngtnmia[address] [place], [place] [address]Dr. Antonella Medrano Urobilinogen Qn (U) 0.2 {Oleg'U}/dL Normal 0.2 - 1. 0 [facility] Comment on above: Performed By: #### U MICRO, ERUR ####[facility] Jtsctfezrm[address] [place], [place] [address]Dr. Antonella Medrano PROF 14(COMP METB)on 022 Albumin [Mass/Vol] 3.0 g/dL Critically low 3.4-5.0 Th [facility] Comment on above: Performed By: #### C MP ####[facility] Rpmhpkoyhs[address] [place], [place] [address]Dr. Antonella Medrano Albumin/Globulin [Mass ratio] 0.8 {ratio} Normal [facility] Comment on above: Performed By: #### C MP ####[facility] Byvnlsoxbv[address] [place], [place] [address]Dr. Antonella Medrano ALP [Catalytic activity/Vol] 136 U/L Critically high 46-[address] [facility] Comment on above: Performed By: #### C MP ####[facility] Kdjryaricg3284 [place] [id number]. Antonella Medrano ALT [Catalytic activity/Vol] 11 U/L Critically low 14-59 [facility] Comment on above: Performed By: #### C MP ####[facility] Zbmcwmfclc7757 [place] [id number]. Antonella Medrano Anion gap [Moles/Vol] 7.7 mmol/L Normal [facility] Comment on above: Performed By: #### C MP ####[facility] Mlfgfmkhjd8678 [place] [id number]. Antonella Medrano AST [Catalytic activity/Vol] 12 U/L Critically low 15-37 [facility] Comment on above: Performed By: #### C MP ####[facility] Fvzvizlpho95[address] [place] [address]Dr. Antonella Mitchell Bilirubin [Mass/Vol] 0.3 mg/dL Normal 0.2-1.0 [facility] Comment on above: Performed By: #### C MP ####[facility] Jjqdwhjrnf[address] [place], [place] [address]Dr. Antonella Mitchell Calcium [Mass/Vol] 8.5 mg/dL Normal 8.5-10.[address] [facility] Comment on above: Performed By: #### C MP ####[facility] Yjvtytzfka[address] [place] [address]Dr. Antonella Mitchell Chloride [Moles/Vol] 100 mmol/L Normal 98-[address] [facility] Comment on above: Performed By: #### C MP ####[facility] Enzbbueuhq5104 [place] [address]Dr. Antonella Mitchell CO2 [Moles/Vol] 27.2 mmol/L Normal 21.0-32.[address] [facility] Comment on above: Performed By: #### C MP ####[facility] Ahukexwkru16[address] [place] [address]Dr. Mariafilemon Medrano Creatinine [Mass/Vol] 1.02 mg/dL Normal 0.55-1.[address] [facility] Comment on above: Performed By: #### C MP ####[facility] Xrzmhejkrs7804 [place] [id number]. Antonella Medrano EGFR-AF FAROESE >60 Normal >=60 [facility] Comment on above: Performed By: #### C MP ####[facility] Pikjnvujyl0353 [place] [id number]. Antonella Medrano EGFR-NON AF FAROESE 54 mL/min/1.73m2 Critically low >=60 [facility] Comment on above: Performed By: #### C MP ####[facility] Ntzoiwkxae6731 [place] [id number]. Antonella Medrano Globulin (S) [Mass/Vol] 3.6 g/dL Normal [facility] Comment on above: Performed By: #### C MP ####[facility] Teojbfhnzi6321 [place] [id number]. Antonella Mitchell Glucose [Mass/Vol] 453 mg/dL Critically high 74-106 T [facility] Comment on above: Performed By: #### C MP ####[facility] Ihqzejowag9620 [place] [id number]. Antonella Medrano Potassium [Moles/Vol] 3.9 mmol/L Normal 3.5-5.1 [facility] Comment on above: Performed By: #### C MP ####[facility] Lvuscgfvio2479 [place] [id number]. Antonella Mitchell Protein [Mass/Vol] 6.6 g/dL Normal 6.4-8.[address] [facility] Comment on above: Performed By: #### C MP ####[facility] Nyauaxfgfl2409 [place] [id number]. Antonella Medrano Sodium [Moles/Vol] 131 mmol/L Critically low 136-145 Th [facility] Comment on above: Performed By: #### C MP ####[facility] Przczlohin5[address] [place] [id number]. Antonella Medrano Urea nitrogen [Mass/Vol] 27.0 mg/dL Critically high 7.0-18.0 [facility] Comment on above: Performed By: #### C MP ####[facility] Ugyiqgoefy17[address] [place] [address]Dr. Antonella Medrano Urea nitrogen/Creatinine [Mass ratio] 26.5 mg/mg Normal [facility] Comment on above: Performed By: #### C MP ####[facility] Avdcsdzbcv8[address] [place] [address]Dr. Antonella Medrano URINE MICROSCOPIC ONLYon BACTERIA TRACE Abnormal NONE SEEN [facility] Comment on above: Performed By: #### U MICRO, ERUR ####[facility] Criyqngexo07[address] [place] [address]Dr. Antonella Medrano Bacteria identified Cx Nom (U) INDICATED Normal [facility] Comment on above: Performed By: #### U MICRO, ERUR ####[facility] Twbxmbkzxu477[address] [place], [place] [address]Dr. Antonella Medrano CAST NONE SEEN Normal NONE SEEN [facility] Comment on above: Performed By: #### U MICRO, ERUR ####[facility] Xgaiumheun8[address] [place], [place] [address]Dr. Antonella Medrano Crystals LM Nom (Urine sed) NONE SEEN Normal NONE SEEN [facility] Comment on above: Performed By: #### U MICRO, ERUR ####[facility] Qtjbutjtmk14[address] [place], [place] [address]Dr. Antonella Medrano Epithelial cells LM Ql (Urine sed) RARE Normal NONE SEEN /RARE [facility] Comment on above: Performed By: #### U MICRO, ERUR ####[facility] Lkljolmyhn[address] [place], [place] [address]Dr. Antonella Medrano MUCOUS NONE SEEN Normal NONE SEEN [facility] Comment on above: Performed By: #### U MICRO, ERUR ####[facility] Rkahyemysy[address] [place], [place] [address]Dr. Antonella Medrano RBC NONE SEEN Abnormal 0-[address] [facility] Comment on above: Performed By: #### U MICRO, ERUR ####[facility] Fzejsefmln86[address] [place], [place] [address]Dr. Antonella Medrano WBC 5-10 Abnormal NONE SEEN [facility] Comment on above: Performed By: #### U MICRO, ERUR ####[facility] Uovojvjdsf51[address] [place] [address]Dr. Antonella Mitchell YEAST PRESENT Abnormal NONE SEEN [facility] Comment on above: Performed By: #### U MICRO, ERUR ####[facility] Ayldprdtoj89[address] [place] [address]Dr. Mariafilemon Medrano Follow-Upon 07-18-2022 Follow-Up [id number] Rylan Blanc 1955 F Date Provider Department Center 07/18/2022 120-ADELINA, ALFRED BH CARD [facility] No family history on file Level of Service:22536 MI OFFICE/OUTPATIENT ESTABLISHED MOD MDM 30-39 MIN Reason for Visit and Comments: Edema [[id number]] Coronary Artery Disease [187] Normal [facility] PROF CHEM 8 (BAS METB)on Anion gap [Moles/Vol] 12.7 mmol/L Normal [facility] Comment on above: Performed By: #### B MP ####[facility] Ggwwrmufhj5[address] [place] [address]Dr. Antonella Medrano Calcium [Mass/Vol] 9.4 mg/dL Normal 8.5-10.[address] [facility] Comment on above: Performed By: #### B MP ####[facility] Vmhtzqvtem0586 [place] [address]Dr. Antonella Medrano Chloride [Moles/Vol] 96 mmol/L Critically low 98-[address] [facility] Comment on above: Performed By: #### B MP ####[facility] Rvharxywkt1927 [place] [address]Dr. Antonella Medrano CO2 [Moles/Vol] 28.2 mmol/L Normal 21.0-32.[address] [facility] Comment on above: Performed By: #### B MP ####[facility] Gaapevsolc7765 [place] [address]Dr. Mariafilemon Medrano Creatinine [Mass/Vol] 0.89 mg/dL Normal 0.55-1.[address] [facility] Comment on above: Performed By: #### B MP ####[facility] Lajhxtbrmq8532 [place] [id number]. Antonella Medrano EGFR-AF FAROESE >60 Normal >=60 [facility] Comment on above: Performed By: #### B MP ####[facility] Otwssoqhvq6[address] [place] [address]Dr. Antonella Medrano EGFR-NON AF FAROESE >60 Normal >=60 [facility] Comment on above: Performed By: #### B MP ####[facility] Djnexgtjup6366 [place] [address]Dr. Antonella Medrano Glucose [Mass/Vol] 395 mg/dL Critically high 74-106 [facility] Comment on above: Performed By: #### B MP ####[facility] Jzrierxveu45[address] [place], [place] [address]Dr. Antonella Medrano Potassium [Moles/Vol] 4.9 mmol/L Normal 3.5-5.1 [facility] Comment on above: Performed By: #### B MP ####[facility] Fmwoxskmrs[address] [place], [place] [address]Dr. Antonella Medrano Sodium [Moles/Vol] 132 mmol/L Critically low 136-145 Th [facility] Comment on above: Performed By: #### B MP ####[facility] Nsobcntakr027[address] [place], [place] [address]Dr. Antonella Medrano Urea nitrogen [Mass/Vol] 29.0 mg/dL Critically high 7.0-18.0 [facility] Comment on above: Performed By: #### B MP ####[facility] Jvxnfqfrjp7851 [place] [address]Dr. Antonella Medrano Urea nitrogen/Creatinine [Mass ratio] 32.6 mg/mg Normal [facility] Comment on above: Performed By: #### B MP ####[facility] Rxgysqnyxg20[address] [place], [place] [address]Dr. Antonella Medrano POINT OF CARE GLUCOSEon 08-2 Glucose [Mass/Vol] 82 mg/dL Normal 74-106 [facility] Comment on above: Performed By: #### P OCGLUC ####[facility] Ueufccvhps5[address] [place] [address]Dr. Antonella Medrano Glucose [Mass/Vol] 113 mg/dL Critically high 74-106 [facility] Comment on above: Performed By: #### P OCGLUC ####[facility] Rzfctcwklz1038 [place] [address]Dr. Antonella Medrano PROF 14(COMP METB)on 022 Albumin [Mass/Vol] 2.2 g/dL Critically low 3.4-5.0 [facility] Comment on above: Performed By: #### C MP ####[facility] Snylneodxr7386 [place] [address]Dr. Antonella Medrano Albumin/Globulin [Mass ratio] 0.7 {ratio} Normal [facility] Comment on above: Performed By: #### C MP ####[facility] Xrrvuazyhv[address] [place], [place] [address]Dr. Antonella Medrano ALP [Catalytic activity/Vol] 80 U/L Normal 46-116 [facility] Comment on above: Performed By: #### C MP ####[facility] Oycxcwrlel59[address] [place] [address]Dr. Antonella Medrano ALT [Catalytic activity/Vol] 9 U/L Critically low 14-59 [facility] Comment on above: Performed By: #### C MP ####[facility] Axeofrujdy4027 [place] [address]Dr. Antonella Medrano Anion gap [Moles/Vol] 10.4 mmol/L Normal [facility] Comment on above: Performed By: #### C MP ####[facility] Zvnlmvykws[address] [place], [place] [address]Dr. Antonella Medrano AST [Catalytic activity/Vol] 13 U/L Critically low 15-37 [facility] Comment on above: Performed By: #### C MP ####[facility] Lfwooargxv30[address] [place], [place] [address]Dr. Antonella Medrano Bilirubin [Mass/Vol] 0.3 mg/dL Normal 0.2-1.0 [facility] Comment on above: Performed By: #### C MP ####[facility] Klljjfojsl9092 [place] [id number]. Antonella Medrano Calcium [Mass/Vol] 7.9 mg/dL Critically low 8.5-10.1 Th [facility] Comment on above: Performed By: #### C MP ####[facility] Cuflfinvfl3339 [place] [id number]. Antonella Medrano Chloride [Moles/Vol] 107 mmol/L Normal 98-107 [facility] Comment on above: Performed By: #### C MP ####[facility] Gljoafwwcn2405 [place] [address]Dr. Antonella Medrano CO2 [Moles/Vol] 20.6 mmol/L Critically low 21.0-32.0 [facility] Comment on above: Performed By: #### C MP ####[facility] Uqeyubrkdt85[address] [place] [address]Dr. Antonella Medrano Creatinine [Mass/Vol] 0.88 mg/dL Normal 0.55-1.02 [facility] Comment on above: Performed By: #### C MP ####[facility] Ydehbhipol[address]16 [place] [address]Dr. Antonella Medrano EGFR-AF FAROESE >60 Normal >=60 [facility] Comment on above: Performed By: #### C MP ####[facility] Kjkxdojnif[address] [place] [address]Dr. Antonella Mitchell EGFR-NON AF FAROESE >60 Normal >=60 [facility] Comment on above: Performed By: #### C MP ####[facility] [address]og[address] [place] [address]Dr. Antonella Mitchell Globulin (S) [Mass/Vol] 3.0 g/dL Normal [facility] Comment on above: Performed By: #### C MP ####[facility] [address]jkqlwn[address] [place] [address]Dr. Antonella Mitchell Glucose [Mass/Vol] 120 mg/dL Critically high 74-106 T [facility] Comment on above: Performed By: #### C MP ####[facility] Uricwichxh[address] [place], [place] [address]Dr. Antonella Medrano Potassium [Moles/Vol] 4.0 mmol/L Normal 3.5-5.1 [facility] Comment on above: Performed By: #### C MP ####[facility] Ghozmfslai[address] [place], [place] [address]Dr. Antonella Medrano Protein [Mass/Vol] 5.2 g/dL Critically low 6.4-8.2 Th [facility] Comment on above: Performed By: #### C MP ####[facility] Ggjoutkqkd[address] [place], [place] [address]Dr. Antonella Medrano Sodium [Moles/Vol] 134 mmol/L Critically low 136-145 Th [facility] Comment on above: Performed By: #### C MP ####[facility] Npekyhxaog94[address] [place], [place] [address]Dr. Antonella Medrano Urea nitrogen [Mass/Vol] 25.0 mg/dL Critically high 7.0-18.0 [facility] Comment on above: Performed By: #### C MP ####[facility] Whbkigzjma7[address] [place], [place] [address]Dr. Antonella Medrano Urea nitrogen/Creatinine [Mass ratio] 28.4 mg/mg Normal [facility] Comment on above: Performed By: #### C MP ####[facility] Dponevhmks62[address] [place], [place] [address]Dr. Antonella Medrano AMMONIAon 05-13-2022 Ammonia (P) [Moles/Vol] 24 umol/L Normal 11-32 [facility] Comment on above: Performed By: #### A MM ####[facility] Zyilduegut5[address] [place], [place] [address]Dr. Antonella Medrano BLOOD GASES BTYon 05-13-2022 02 MODE ROOM AIR Normal [facility] Comment on above: Performed By: #### A BG ####[facility] Mpygaucwsy[address] [place], [place] [address]Dr. Antonella Medrano ALLENS TEST Positive Normal [facility] Comment on above: Performed By: #### A BG ####[facility] Izlqkpzttb27[address] [place], [place] [address]Dr. Antonella Medrano Base excess Calc (Bld) [Moles/Vol] 0.7 mmol/L Normal -2.0-2.0 [facility] Comment on above: Performed By: #### A BG ####[facility] [address] [place] [address]Dr. Antonella Medrano BIPAP PRESSURE Normal [facility] Comment on above: Performed By: #### A BG ####[facility] [address]qaxibkv[address] [place] [address]Dr. Antonella Medrano CPAP [facility] Comment on above: Performed By: #### A BG ####[facility] Sifxtfsczg[address] [place] [address]Dr. Antonella Medrano FIO2 [facility] Comment on above: Performed By: #### A BG ####[facility] Kbibhwsygh78[address] [place], [place] [address]Dr. Antonella Medrano HCO3 (Bld) [Moles/Vol] 24.4 mmol/L Normal 22.0-26.0 [facility] Comment on above: Performed By: #### A BG ####[facility] Iwwdvtpmsn9360[address] [place], [place] [address]Dr. Antonella Medrano LPM [facility] Comment on above: Performed By: #### A BG ####[facility] Sgbsieogkm382[address] [place], [place] [address]Dr. Antonella Medrano MINUTE VOLUME Normal [facility] Comment on above: Performed By: #### A BG ####[facility] Qekjogrmyb[address] [place], [place] [address]Dr. Antonella Medrano Oxygen (Bld) [Partial pressure] 36.8 mm[Hg] Critically low 80.0-100.0 [facility] Comment on above: Result Comment: mixe d/venous blood Performed By: #### A BG ####[facility] Runnaiugxg5820[address] [place], [place] [address]Dr. Antonella Medrano Oxygen saturation in Blood 74.3 % Critically low 95.0-100.0 [facility] Comment on above: Result Comment: mixe d/venous blood Performed By: #### A BG ####[facility] [address]cslx[address] [place] [address]Dr. Antonella Medrano PCO2 40.2 mmHg Normal 35.0-45.0 [facility] Comment on above: Performed By: #### A BG ####[facility] [address]aiacqiuj[address] [place] [address]Dr. Antonella Medrano PEEP [facility] Comment on above: Performed By: #### A BG ####[facility] Anoclxedmw[address] [place] [address]Dr. Antonella Medrano pH (Bld) 7.409 [pH] Normal 7.350-7.450 [facility] Comment on above: Performed By: #### A BG ####[facility] Bbmpugyllm[address] [place] [address]Dr. Antonella Medrano PIP [facility] Comment on above: Performed By: #### A BG ####[facility] Q[address]ccytzoj[address] [place] [address]Dr. Antonella Medrano PS [facility] Comment on above: Performed By: #### A BG ####[facility] B[address]kdlyccw[address] [place] [address]Dr. Antonella Medrano PUNCTURE SITE RR [facility] Comment on above: Performed By: #### A BG ####[facility] V[address]jqyfcfs[address] [place] [address]Dr. Antonella Medrano RATE [facility] Comment on above: Performed By: #### A BG ####[facility] Sufuxipdhe[address] [place], [place] [address]Dr. Antonella Medrano VENT MODE [facility] Comment on above: Performed By: #### A BG ####[facility] H[address]cpwpjjzk[address] [place] [address]Dr. Antonella Medrano VT [facility] Comment on above: Performed By: #### A BG ####[facility] Lmbrclknes54[address] [place], [place] [address]Dr. Antonella Medrano CARDIAC VICK 3-6on 2 CK [Catalytic activity/Vol] 38 U/L Normal 26-192 [facility] Comment on above: Performed By: #### C MREP ####[facility] [address]zkt[address] [place] [id number]. Antonella Medrano CK.MB [Mass/Vol] 1.28 ng/mL Normal <=3.60 [facility] Comment on above: Performed By: #### C MREP ####[facility] Ejetsnpgjy[address] [place] [id number]. Antonella Medrano HSTROP 58.4 pg/mL Critically high 4.0-51.3 [facility] Comment on above: Result Comment: CUT- OFF POINTS HAVE BEEN ESTABLISHED BASED ON THE FOURTH UNIVERSAL DEFINITIONS OF MYOCARDIALINFARCTION. THE UPPER REFERENCE LIMIT (URL) OF TROPONIN, DEFINED THE 99TH PERCENTILE OFcTnI DISTRIBUTION IN A REFERENCE POPULATION, HAS BEEN CONFIRMED THE DECISION THRESHOLDFOR DC DIAGNOSIS. Performed By: #### C MREP ####[facility] [address]pa[address] [place] [address]Dr. Antonella Mitchell CK [Catalytic activity/Vol] 45 U/L Normal 26-192 [facility] Comment on above: Performed By: #### C MREP ####[facility] Xfvmwwficz[address] [place] [id number]. Antonella Medrano CK.MB [Mass/Vol] 1.53 ng/mL Normal <=3.[address] [facility] Comment on above: Performed By: #### C MREP ####[facility] Ws[address]yhjg[address] [place] [address]Dr. Antonella Medrano HSTROP 56.7 pg/mL Critically high 4.0-51.3 [facility] Comment on above: Result Comment: CUT- OFF POINTS HAVE BEEN ESTABLISHED BASED ON THE FOURTH UNIVERSAL DEFINITIONS OF MYOCARDIALINFARCTION. THE UPPER REFERENCE LIMIT (URL) OF TROPONIN, DEFINED THE 99TH PERCENTILE OFcTnI DISTRIBUTION IN A REFERENCE POPULATION, HAS BEEN CONFIRMED THE DECISION THRESHOLDFOR DC DIAGNOSIS. Performed By: #### C MREP ####[facility] [address]zjgr[address] [place] [address]Dr. Mariafilemon Medrano CARDIAC VICK ADMITon 022 CK [Catalytic activity/Vol] 47 U/L Normal 26-[address] [facility] Comment on above: Performed By: #### C FERNANDEZ, BMP ####[facility] R[address]qnabfyd[address] [place] [id number]. Antonella Medrano CK.MB [Mass/Vol] 1.38 ng/mL Normal <=3.[address] [facility] Comment on above: Performed By: #### C FERNANDEZ, BMP ####[facility] Vecajppsio[address] [place] [address]Dr. Antonella Medrano HSTROP 57.9 pg/mL Critically high 4.0-51.[address] [facility] Comment on above: Result Comment: CUT- OFF POINTS HAVE BEEN ESTABLISHED BASED ON THE FOURTH UNIVERSAL DEFINITIONS OF MYOCARDIALINFARCTION. THE UPPER REFERENCE LIMIT (URL) OF TROPONIN, DEFINED THE 99TH PERCENTILE OFcTnI DISTRIBUTION IN A REFERENCE POPULATION, HAS BEEN CONFIRMED THE DECISION THRESHOLDFOR DC DIAGNOSIS. Performed By: #### C FERNANDEZ, BMP ####[facility] [address]ws[address] [place] [address]Dr. Antonella Medrano CHRISTOPHER 100 ng/mL Critically high 9-82 [facility] Comment on above: Performed By: #### C FERNANDEZ, BMP ####[facility] C[address]pfwjcvna[address] [place] [address]Dr. Antonella Medrano CBC AUTO DIFFon 05-13-2022 BASO # 0.0 103/ul Normal 0.0-0.1 [facility] Comment on above: Performed By: #### C BC ####[facility] Um[address]irzf[address] [place] [address]Dr. Antonella Medrano Basophils/100 WBC (Bld) 0.3 % Normal 0.2-2.[address] [facility] Comment on above: Performed By: #### C BC ####[facility] Xegktoadse[address] [place] [address]Dr. Antonella Medrano EO # 0.1 103/ul Normal 0.0-0.[address] [facility] Comment on above: Performed By: #### C BC ####[facility] Vzsejjudmb[address] [place], [place] [address]Dr. Antonella Medrano Eosinophils/100 WBC (Bld) 1.6 % Normal 0.9-7.0 [facility] Comment on above: Performed By: #### C BC ####[facility] Ohxuhxvpso[address] [place], [place] [address]Dr. Mariafilemon Mitchell Erythrocyte distribution width (RBC) [Ratio] 13.7 % Normal 11.0-15.0 [facility] Comment on above: Performed By: #### C BC ####[facility] Klzyqrpemi2801[address] [place], [place] [address]Dr. Antonella Medrano Hematocrit (Bld) [Volume fraction] 43.1 % Normal 36.0-48.[address] [facility] Comment on above: Performed By: #### C BC ####[facility] Qtsxfqdxfe683[address] [place], [place] [address]Dr. Antonella Medrano Hemoglobin (Bld) [Mass/Vol] 14.1 g/dL Normal 12.0-16.0 [facility] Comment on above: Performed By: #### C BC ####[facility] Srfyeegtbo120[address] [place], [place] [address]Dr. Antonella Medrano IG # 0.10 10e3/ul Critically high 0.00-0.03 [facility] Comment on above: Performed By: #### C BC ####[facility] Dtrfxkirla[address] [place], [place] [address]Dr. Antonella Medrano IG % 1.2 % Critically high 0.0-0.5 [facility] Comment on above: Performed By: #### C BC ####[facility] Cntxenhqnx139[address] [place], [place] [address]Dr. Antonella Medrano LYMPH # 2.3 103/ul Normal 1.2-3.[address] [facility] Comment on above: Performed By: #### C BC ####[facility] Xwybgthfxm3734[address] [place], [place] [address]Dr. Antonella Medrano Lymphocytes/100 WBC (Bld) 26.2 % Normal 20.5-60.[address] [facility] Comment on above: Performed By: #### C BC ####[facility] Wnumwdoapl[address] [place], [place] [address]Dr. Antonella Medrano MANUAL DIFF REQ NO Normal [facility] Comment on above: Performed By: #### C BC ####[facility] [address]qvaleqo[address] [place] [address]Dr. Antonella Medrano MCH (RBC) [Entitic mass] 28.8 pg Normal 26.7-34.0 [facility] Comment on above: Performed By: #### C BC ####[facility] Eejcupfizx[address] [place] [address]Dr. Antonella Medrano MCHC (RBC) [Mass/Vol] 32.7 g/dL Normal 29.9-35.2 [facility] Comment on above: Performed By: #### C BC ####[facility] Nqhaeryexz[address] [place], [place] [address]DrGerman Medrano MCV (RBC) [Entitic vol] 88.0 fL Normal 81.0-99.0 [facility] Comment on above: Performed By: #### C BC ####[facility] Tnpekeirvc[address] [place], [place] [address]DrGerman Medrano MONO # 0.8 103/ul Normal 0.3-0.[address] [facility] Comment on above: Performed By: #### C BC ####[facility] Kftidzknrp8[address] [place], [place] [address]DrGerman Medrano Monocytes/100 WBC (Bld) 9.3 % Normal 1.7-12.[address] [facility] Comment on above: Performed By: #### C BC ####[facility] Phblmvkcje408[address] [place], [place] [address]DrGerman Medrano NEUT # 5.3 103/ul Normal 1.4-6.[address] [facility] Comment on above: Performed By: #### C BC ####[facility] Azsiwkqhgo5910[address] [place], [place] [address]DrGerman Medrano Neutrophils/100 WBC (Bld) 61.4 % Normal 43.0-75.[address] [facility] Comment on above: Performed By: #### C BC ####[facility] Yojradrbuv265[address] [place], [place] [address]DrGerman Medrano Platelet mean volume (Bld) [Entitic vol] 10.6 fL Normal 9.5-13.[address] [facility] Comment on above: Performed By: #### C BC ####[facility] Oqtkrbuprq[address] [place] [address]Dr. Antonella Medrano PLT 291 103/ul Normal 150-[address] [facility] Comment on above: Performed By: #### C BC ####[facility] Khkpsrinjv25[address] [place] [address]Dr. Antonella Medrano RBC 4.90 106/ul Normal 4.20-5.[address] [facility] Comment on above: Performed By: #### C BC ####[facility] Uzbsiurmtf4840[address] [place], [place] [address]Dr. Antonella Medrano WBC 8.7 103/ul Normal 4.0-11.[address] [facility] Comment on above: Performed By: #### C BC ####[facility] Qlnibiepwl385[address] [place], [place] [address]Dr. Antonella Medrano BASO # 0.1 103/ul Normal 0.0-0.[address] [facility] Comment on above: Performed By: #### C BC ####[facility] Gjtqwjktek7950[address] [place], [place] [address]Dr. Antonella Medrano Basophils/100 WBC (Bld) 0.5 % Normal 0.2-2.[address] [facility] Comment on above: Performed By: #### C BC ####[facility] Bmztcaejek063[address] [place], [place] [address]Dr. Antonella Medrano EO # 0.1 103/ul Normal 0.0-0.[address] [facility] Comment on above: Performed By: #### C BC ####[facility] Lfvtonfswg994[address] [place], [place] [address]Dr. Antonella Medrano Eosinophils/100 WBC (Bld) 1.3 % Normal 0.9-7.[address] [facility] Comment on above: Performed By: #### C BC ####[facility] Tduveezcco9464[address] [place], [place] [address]Dr. Antonella Medrano Erythrocyte distribution width (RBC) [Ratio] 13.7 % Normal 11.0-15.0 [facility] Comment on above: Performed By: #### C BC ####[facility] Bitozelqcf[address] [place] [address]Dr. Antonella Medrano Hematocrit (Bld) [Volume fraction] 45.2 % Normal 36.0-48.0 [facility] Comment on above: Performed By: #### C BC ####[facility] Xsuuhxuwur[address] [place] [address]Dr. Mariafilemon Medrano Hemoglobin (Bld) [Mass/Vol] 14.9 g/dL Normal 12.0-16.0 [facility] Comment on above: Performed By: #### C BC ####[facility] Tvlgoedztz246[address] [place], [place] [address]Dr. Antonella Medrano IG # 0.14 10e3/ul Critically high 0.00-0.03 [facility] Comment on above: Performed By: #### C BC ####[facility] Whwzxheypo390[address] [place], [place] [address]Dr. Antonella Medrano IG % 1.4 % Critically high 0.0-0.5 [facility] Comment on above: Performed By: #### C BC ####[facility] Ptpuwimveh79[address] [place], [place] [address]DrGerman Mariafilemon Medrano LYMPH # 1.7 103/ul Normal 1.2-3.8 [facility] Comment on above: Performed By: #### C BC ####[facility] Mkusrexjdv847[address] [place], [place] [address]DrGerman Medrano Lymphocytes/100 WBC (Bld) 16.1 % Critically low 20.5-60.[address] [facility] Comment on above: Performed By: #### C BC ####[facility] Fimvtvtune209[address] [place], [place] [address]DrGerman Medrano MANUAL DIFF REQ NO Normal [facility] Comment on above: Performed By: #### C BC ####[facility] Bugodostpx[address] [place] [address]Dr. Antonella Medrano MCH (RBC) [Entitic mass] 29.0 pg Normal 26.7-34.[address] [facility] Comment on above: Performed By: #### C BC ####[facility] Nyxanvjfoc[address] [place] [id number] Medrano MCHC (RBC) [Mass/Vol] 33.0 g/dL Normal 29.9-35.[address] [facility] Comment on above: Performed By: #### C BC ####[facility] Xxymhuekyq6439 [place] [id number] Medrano MCV (RBC) [Entitic vol] 87.9 fL Normal 81.0-99.0 [facility] Comment on above: Performed By: #### C BC ####[facility] Zibnwfjaom14[address] [place], [place] [address]DrGerman Medrano MONO # 1.0 103/ul Critically high 0.3-0.8 [facility] Comment on above: Performed By: #### C BC ####[facility] Rcmnnffxob307[address] [place], [place] [address]Dr. Antonella Medrano Monocytes/100 WBC (Bld) 9.2 % Normal 1.7-12.[address] [facility] Comment on above: Performed By: #### C BC ####[facility] Zyfxradqyg060[address] [place], [place] [address]DrGerman Medrano NEUT # 7.4 103/ul Critically high 1.4-6.[address] [facility] Comment on above: Performed By: #### C BC ####[facility] Ueziaoxcdr12[address] [place], [place] [address]DrGerman Medrano Neutrophils/100 WBC (Bld) 71.5 % Normal 43.0-75.[address] [facility] Comment on above: Performed By: #### C BC ####[facility] Nvtfyqiwql859[address] [place], [place] [address]DrGerman Medrano Platelet mean volume (Bld) [Entitic vol] 10.4 fL Normal 9.5-13.[address] [facility] Comment on above: Performed By: #### C BC ####[facility] Cvygirgvsb[address] [place], [place] [address]DrGerman Medrano PLT 289 103/ul Normal 150-[address] [facility] Comment on above: Performed By: #### C BC ####[facility] O[address]ehk[address] [place], [place] [address]Az. Antonella Medrano RBC 5.14 106/ul Normal 4.20-5.40 [facility] Comment on above: Performed By: #### C BC ####[facility] Lrukmclkdk9298 [place], [place] [address]Lc. Antonella Medrano WBC 10.3 103/ul Normal 4.0-11.[address] [facility] Comment on above: Performed By: #### C BC ####[facility] Honsnirwbp36[address] [place], [place] [address]Hq. Anton[address] Medrano CT HEAD WO CONon 05-13-2022 CT HEAD WO CON Normal [facility] CULTURE URINEon 05-13-2022 CULTURE URINE Culture Observations : HEAVY GROWTH OF MIXED GENITAL LUCY. NO POTENTIAL PATHOGENS SEEN. Normal [facility] Comment on above: Performed By: #### U RCX ####[facility] Rwpjgvydsl12[address] [place], [place] [address]Uh. Antonella Medrano Covid-19 PCR (CVDTB)on 04-24 SARS-CoV-2 (COVID-19) RNA TAISHA+probe Ql (Unsp spec) Not detected Normal NOT DETECTED [facility] Comment on above: Result Comment: When diagnostic testing is negative, the possibility of a false negative should be considered inthe context of a patient's recent exposures and the presence of clinical signs and symptomsconsistent with SARS-CoV-2.This test is not yet approved or cleared by the [place] FDA. When there are no FDA-approved or cleared tests available, and other criteria are met, FDA can make tests available under an emergency access mechanism called an Emergency Use Authorization (EUA). The EUA for this test is supported by the Outpatient Pharmacy Manager of Health and Human Service's declaration that circumstances exist to justify the emergency use of in vitro diagnostics for the detection and/or diagnosis of the virus that causes COVID-19. This EUA will remain in effect for the duration of the COVID-19 declaration justifying emergency of IVDs, unless it is terminated or revoked by the FDA (after which the test may no longer be used). Performed By: #### C VDTBH ####[facility] [address]jkpsigco[address] [place] [address]Dr. Antonella Medrano ER URINE PROFILEon 2 Bilirubin Ql (U) Negative Normal NEGATIVE [facility] Comment on above: Performed By: #### U MICRO, ERUR ####[facility] Gfuakmbhos46[address] [place], [place] [address]Dr. Antonella Medrano Clarity (U) CLEAR Normal CLEAR [facility] Comment on above: Performed By: #### U MICRO, ERUR ####[facility] Ydkyeykbsz0725[address] [place], [place] [address]Dr. Mariafilemon Medrano Color (U) YELLOW Normal YELLOW [facility] Comment on above: Performed By: #### U MICRO, ERUR ####[facility] Udeuwunluk[address] [place], [place] [address]Dr. Antonella Medrano ERUAHD A micrscopic examina tion will be performed if indicated. Normal [facility] Comment on above: Performed By: #### U MICRO, ERUR ####[facility] Ohghvbiyga40[address] [place], [place] [address]Dr. Antonella Medrano Glucose Ql (U) >[address] [facility] Comment on above: Performed By: #### U MICRO, ERUR ####[facility] Uixqznotwx[address] [place], [place] [address]Dr. Marialan Medrano Hemoglobin Ql (U) SMALL Abnormal NEGATIVE [facility] Comment on above: Performed By: #### U MICRO, ERUR ####[facility] Lanhkvgeqy888[address] [place], [place] [address]Dr. Antonella Medrano Ketones Ql (U) Negative Normal NEGATIVE [facility] Comment on above: Performed By: #### U MICRO, ERUR ####[facility] Xlwldadzad168[address] [place], [place] [address]Dr. Marialan Medrano LEUKOCYTES SMALL Abnormal NEGATIVE [facility] Comment on above: Performed By: #### U MICRO, ERUR ####[facility] Qkqdarzpbr698[address] [place], [place] [address]Dr. Marialan Medrano Nitrite Ql (U) Negative Normal NEGATIVE [facility] Comment on above: Performed By: #### U MICRO, ERUR ####[facility] Weebnvpkib47[address] [place], [place] [address]Dr. Antonella Medrano pH (U) 5.5 [pH] Normal 5-[address] [facility] Comment on above: Performed By: #### U MICRO, ERUR ####[facility] Iwhgfrgsyw[address] [place], [place] [address]Dr. Antonella Medrano Protein (U) [Mass/Vol] 100 mg/dL Abnormal NEGAT LAZ/ TRACE [facility] Comment on above: Performed By: #### U MICRO, ERUR ####[facility] Rzaoekowbm64[address] [place], [place] [address]Dr. Antonella Medrano SPEC GRAVITY >=1.030 Abnormal 1.005-<=1.[address] [facility] Comment on above: Performed By: #### U MICRO, ERUR ####[facility] Oilkoiawkr[address] [place], [place] [address]Dr. Antonella Medrano UR MICRO IND INDICATED Normal [facility] Comment on above: Performed By: #### U MICRO, ERUR ####[facility] Fsfjkesazp[address] [place], [place] [address]Dr. Antonella Medrano Urobilinogen Qn (U) 0.2 {Oleg'U}/dL Normal 0.2 - 1. [address] [facility] Comment on above: Performed By: #### U MICRO, ERUR ####[facility] Veiiquunsq[address] [place], [place] [address]Dr. Antonella Medrano ETHANOL (BLD ALC)on 05-13-20 22 ALC NOTE NOTE: 80 mg/dl is th e legal limit for a blood alcohol level Normal [facility] Comment on above: Performed By: #### E TH ####[facility] Gadlbphcdi9[address] [place], [place] [address]Dr. Antonella Medrano Ethanol [Mass/Vol] mg/dL Normal [facility] Comment on above: Performed By: #### E TH ####[facility] Fbxhdppvul[address] [place], [place] [address]Dr. Antonella Medrano LACTATE/LACTIC ACIDon 2021 Lactate [Moles/Vol] 1.3 mmol/L Normal 0.4-1.9 [facility] Comment on above: Performed By: #### L ACT ####[facility] [address]rwpbbilm[address] [place] [address]Dr. Mariafilemon Mitchell POINT OF CARE GLUCOSEon 04-24 Glucose [Mass/Vol] 164 mg/dL Critically high 74-106 [facility] Comment on above: Performed By: #### P OCGLUC ####[facility] [address]zcyachfq[address] [place] [address]Dr. Antonella Medrano Glucose [Mass/Vol] 172 mg/dL Critically high -106 [facility] Comment on above: Performed By: #### P OCGLUC ####[facility] [address]byfprlgw[address] [place], [place] [address]Dr. Antonella Medrano Performed By: #### B MP ####[facility] Qjtfxknkgs[address] [place], [place] [address]Dr. Antonella Medrano Glucose [Mass/Vol] 253 mg/dL Critically high -106 [facility] Comment on above: Performed By: #### P OCGLUC ####[facility] [address] [place], [place] [address]Dr. Antonella Medrano Glucose [Mass/Vol] 146 mg/dL Critically high [address] [place] [address] Comment on above: Performed By: #### P OCGLUC ####[facility] Ifzsvpepgh[address] [place], [place] [address]Dr. Antonella Medrano PROF CHEM 8 (BAS METB)on Anion gap [Moles/Vol] 11.4 mmol/L Normal [facility] Comment on above: Performed By: #### B MP ####[facility] Yxyoekognu[address] [place], [place] [address]Dr. Antonella Medrano Calcium [Mass/Vol] 8.4 mg/dL Critically low 8.5-10.1 [facility] Comment on above: Performed By: #### B MP ####[facility] Lnmqjqjyxw[address] [place], [place] [address]Dr. Antonella Medrano Chloride [Moles/Vol] 101 mmol/L Normal 98-[address] [facility] Comment on above: Performed By: #### B MP ####[facility] [address] [place] [address]Dr. Mariafilemon Medrano CO2 [Moles/Vol] 26.5 mmol/L Normal 21.0-32.0 [facility] Comment on above: Performed By: #### B MP ####[facility] [address]rel[address] [place] [address]Dr. Antonella Medrano Creatinine [Mass/Vol] 1.06 mg/dL Critically high 0.55-1.02 [facility] Comment on above: Performed By: #### B MP ####[facility] [address]bkzvyhml[address] [place] [address]Dr. Antonella Medrano EGFR-AF FAROESE >60 Normal >=60 [facility] Comment on above: Performed By: #### B MP ####[facility] [address]koxb[address] [place] [address]Dr. Antonella Medrano EGFR-NON AF FAROESE 52 mL/min/1.73m2 Critically low >=60 [facility] Comment on above: Performed By: #### B MP ####[facility] [address]broejvzi[address] [place] [address]Dr. Antonella Medrano Potassium [Moles/Vol] 3.9 mmol/L Normal 3.5-5.[address] [facility] Comment on above: Performed By: #### B MP ####[facility] X[address]vrqqyhr[address] [place] [address]Dr. Antonella Medrano Sodium [Moles/Vol] 135 mmol/L Critically low 136-145 [facility] Comment on above: Performed By: #### B MP ####[facility] Wvvdpqjmcs[address] [place] [address]Dr. Antonella Medrano Urea nitrogen [Mass/Vol] 28.0 mg/dL Critically high 7.0-18.0 [facility] Comment on above: Performed By: #### B MP ####[facility] S[address] [place], [place] [address]Dr. Antonella Medrano Urea nitrogen/Creatinine [Mass ratio] 26.4 mg/mg Normal [facility] Comment on above: Performed By: #### B MP ####[facility] Rjecziiigg[address] [place], [place] [address]Dr. Antonella Medrano Anion gap [Moles/Vol] 12.0 mmol/L Normal [facility] Comment on above: Performed By: #### C FERNANDEZ, BMP ####[facility] Grfuowmwsq[address] [place], [place] [address]Dr. Antonella Medrano Calcium [Mass/Vol] 8.8 mg/dL Normal 8.5-10.[address] [facility] Comment on above: Performed By: #### C FERNANDEZ, BMP ####[facility] Jmmcuohaxq[address] [place], [place] [address]Dr. Antonella Medrano Chloride [Moles/Vol] 101 mmol/L Normal 98-[address] [facility] Comment on above: Performed By: #### C FERNANDEZ, BMP ####[facility] Ijjfotwboq[address] [place], [place] [address]Dr. Antonella Medrano CO2 [Moles/Vol] 28.2 mmol/L Normal 21.0-32.[address] [facility] Comment on above: Performed By: #### C FERNANDEZ, BMP ####[facility] Ttgpxynwqi[address] [place], [place] [address]Dr. Antonella Medrano Creatinine [Mass/Vol] 1.23 mg/dL Critically high 0.55-1.[address] [facility] Comment on above: Performed By: #### C FERNANDEZ, BMP ####[facility] P[address]og[address]ukt[address] [place], [place] [address]Dr. Antonella Medrano EGFR-AF FAROESE 53 mL/min/1.73m2 Critically low >=[address] [facility] Comment on above: Performed By: #### C FERNANDEZ, BMP ####[facility] Qgzvcacesx[address] [place], [place] [address]Dr. Antonella Medrano EGFR-NON AF FAROESE 44 mL/min/1.73m2 Critically low >=[address] [facility] Comment on above: Performed By: #### C FERNANDEZ, BMP ####[facility] [address]lmtojnmaz[address] [place] [id number]. Antonella Medrano Glucose [Mass/Vol] 173 mg/dL Critically high 74-106 [facility] Comment on above: Performed By: #### C FERNANDEZ, BMP ####[facility] [address]wyxobfph[address] [place] [address]Dr. Antonella Medrano Potassium [Moles/Vol] 4.2 mmol/L Normal 3.5-5.1 [facility] Comment on above: Performed By: #### C FERNANDEZ, BMP ####[facility] [address]zuck[address] [place] [address]Dr. Antonella Medrano Sodium [Moles/Vol] 137 mmol/L Normal 136-145 [facility] Comment on above: Performed By: #### Francis PRESLEY, BMP ####[facility] [address]os[address]vql[address] [place] [address]Dr. Antonella Medrano Urea nitrogen [Mass/Vol] 29.0 mg/dL Critically high 7.0-18.0 [facility] Comment on above: Performed By: #### Francis PRESLEY, BMP ####[facility] [address]bsxpmecl[address] [place] [address]Dr. Antonella Medrano Urea nitrogen/Creatinine [Mass ratio] 23.6 mg/mg Normal [facility] Comment on above: Performed By: #### C FERNANDEZ, BMP ####[facility] [address]rx[address] [place] [address]Dr. Antonella Mitchell URINE MICROSCOPIC ONLYon BACTERIA LARGE Abnormal NONE SEEN [facility] Comment on above: Performed By: #### U MICRO, ERUR ####[facility] [address]avtpwt[address] [place] [address]Dr. Antonella Mitchell Bacteria identified Cx Nom (U) INDICATED Normal [facility] Comment on above: Performed By: #### U MICRO, ERUR ####[facility] [address]psaxywtl[address] [place] [address]Dr. Antonella Medrano CAST NONE SEEN Normal NONE SEEN [facility] Comment on above: Performed By: #### U MICRO, ERUR ####[facility] Awxjqphcta[address] [place] [address]Dr. Antonella Medrano Crystals LM Nom (Urine sed) NONE SEEN Normal NONE SEEN [facility] Comment on above: Performed By: #### U MICRO, ERUR ####[facility] T[address]zjynl[address] [place] [address]Dr. Antonella Mitchell Epithelial cells LM Ql (Urine sed) RARE Normal NONE SEEN /RARE [facility] Comment on above: Performed By: #### U MICRO, ERUR ####[facility] [address] [place] [address]Dr. Antonella Mitchell MUCOUS NONE SEEN Normal NONE SEEN [facility] Comment on above: Performed By: #### U MICRO, ERUR ####[facility] [address]ysimaggo[address] [place] [address]Dr. Mariafilemon Medrano RBC 0-2 Normal 0-[address] [facility] Comment on above: Performed By: #### U MICRO, ERUR ####[facility] [address]gfbjrqd24[address] [place] [address]Dr. Mariafilemon Medrano WBC 10-20 Abnormal NONE SEEN [facility] Comment on above: Performed By: #### U MICRO, ERUR ####[facility] [address]ndlxkg[address] [place] [address]Dr. Antonella Medrano YEAST PRESENT Abnormal NONE SEEN [facility] Comment on above: Performed By: #### U MICRO, ERUR ####[facility] [address]hdtlwqhzs[address] [place] [address]Dr. Antonella Mitchell XR CHEST 1 Von 05-13-2022 XR CHEST [address] [facility] POC GLUCOSE LABon 03-25-2022 Glucose [Mass/Vol] 180 mg/dL High 70-100 [facility] Comment on above: Performed By: #### 1 0070, [id number] #### [facility] [address] [facility] [place] [address], [facility] Glucose [Mass/Vol] 189 mg/dL High 70-100 [facility] Comment on above: Performed By: #### 1 0070, [id number] #### [facility] [address] [place] [address], [place] POC GLUCOSE LABon 03-24-2022 Glucose [Mass/Vol] 198 mg/dL High 70-100 [facility] Comment on above: Performed By: #### 3 5200 #### [facility] [address] [place] [address], [place] Glucose [Mass/Vol] 175 mg/dL High 70-100 [facility] Comment on above: Performed By: #### 8 5499 #### [facility] [address] [place] [address], [place] Glucose [Mass/Vol] 148 mg/dL High 70-100 [facility] Comment on above: Performed By: #### 8 5499 #### [facility] [address] [place] [address], [place] Glucose [Mass/Vol] 85 mg/dL Normal 70-100 [facility] Comment on above: Performed By: #### 3 5200 #### [facility] [address] [place] [address], [place] POC GLUCOSE LABon 03-23-2022 Glucose [Mass/Vol] 173 mg/dL High 70-100 [facility] Comment on above: Performed By: #### 8 5499 #### [facility] [address] [place] [address], [place] Glucose [Mass/Vol] 190 mg/dL High 70-100 [facility] Comment on above: Performed By: #### 8 5499 #### [facility] [address] [place] [address], [place] Glucose [Mass/Vol] 141 mg/dL High 70-100 [facility] Comment on above: Performed By: #### 8 5499 #### [facility] [address] [place] [address], [place] Glucose [Mass/Vol] 188 mg/dL High 70-100 [facility] Comment on above: Performed By: #### 8 5499 #### [facility] [address] [place] [address], [facility] POC GLUCOSE LABon 03-22-2022 Glucose [Mass/Vol] 225 mg/dL High 70-100 [facility] Comment on above: Performed By: #### 1 0070, [id number] #### [facility] [address] [place] [address], [place] Glucose [Mass/Vol] 241 mg/dL High 70-100 [facility] Comment on above: Performed By: #### 8 5499 #### [facility] [address] [place] [address], [place] Glucose [Mass/Vol] 182 mg/dL High 70-100 [facility] Comment on above: Performed By: #### 8 5499 #### [facility] [address] [place] [address], [place] Glucose [Mass/Vol] 212 mg/dL High 70-100 [facility] Comment on above: Performed By: #### 1 0070, 30725 #### [facility] [address] [facility] [place] [address], [facility] MRI HIP WO CONTRAST RIGHTon 03-21-2022 MRI HIP WO CONTRAST RIGHT [facility] Department of Radiology [address] [place] [id number] Patient Name: KIARA BLANC : 1955 Sex: F Age: Race: White Pt. Location: [id number] Patient Status: I Ordered Date: 2022 2:20:00 PM Completed Date: 03/21/2022 10:48 AM Requesting Provider: JENARO LUNA Attending Provider: YRIS QUAN Report Copy To: Signs & Symptoms: Fracture History: See Comments Comments: R/O Occult Fracture, looking for occult femoral neck fracture Exam: MRI HIP WO CONTRAST RIGHT MRI RIGHT HIP CLINICAL INFORMATION: Injury, hip pain COMPARISON: Radiographs 2022, CT 2022 PROCEDURE: Routine MRI right hip was obtained without contrast. Multisequence, multiplanar imaging was obtained. FINDINGS: BONE AND JOINT Hip Joint: No visible fracture or stress injury. Joint effusion: No significant joint fluid. Labrum: No displaced labral tear, no para labral cyst. Other bones/marrow: Old nonunited displaced greater trochanteric fracture, the gluteal medius and minimus tendons remain attached upon this bony fragment, no bone marrow edema. CARTILAGE Femoral cartilage: Partial thickness thinning Acetabular cartilage: Partial thickness thinning MUSCLES AND TENDONS Gluteus Minimus and Medius: No significant tendinosis or discrete tear. Iliopsoas: No significant tendinosis or discrete tear. Hamstrings: No significant tendinosis or discrete tear. OTHER FINDINGS Bursae: No fluid. Nerves: Normal. Soft tissues: Normal. Viscera: No enlarged lymph nodes. No free pelvic fluid. Other: IMPRESSION: 1. No acute osseous abnormality. No acute or subacute fracture. Electronically signed: Kj Pedersen. Transcribed by: [email or web address], User Resident: Electronically Signed by: KJ PEDERSEN @ 03/21/2022 12:05 PM Normal [facility] Comment on above: Order Comment: No: D o not add to previous draw POC GLUCOSE LABon 03-21-2022 Glucose [Mass/Vol] 270 mg/dL High 70-100 [facility] Comment on above: Performed By: #### 1 0070, [id number] #### [facility] [address] [facility] [address], [place] Glucose [Mass/Vol] 256 mg/dL High 70-100 [facility] Comment on above: Performed By: #### 8 [id number] #### [facility] [address] [facility] [place] [address], [place] Glucose [Mass/Vol] 250 mg/dL High 70-100 [facility] Comment on above: Performed By: #### 8 5499 #### [facility] [address] [facility] [place] [address], [place] Glucose [Mass/Vol] 223 mg/dL High 70-100 [facility] Comment on above: Performed By: #### 3 5200 #### [facility] [address] [facility] [address], [facility] CT LOWER EXTREMITY WO CONTRA ST RIGHTon 2022 CT LOWER EXTREMITY WO CONTRAST RIGHT [facility] Department of Radiology [address] [place] [id number] Patient Name: KIARA BLANC : 1955 Sex: F Age: Race: White Pt. Location: [id number] Patient Status: I Ordered Date: 2022 12:00:00 PM Completed Date: 2022 01:12 PM Requesting Provider: JENARO LUNA Attending Provider: YRIS QUAN Report Copy To: Signs & Symptoms: Fracture History: See Comments Comments: Fractures, focus on right hip, assessing greate trochanter fracture Exam: CT LOWER EXTREMITY WO CONTRAST RIGHT CT LOWER EXTREMITY WO CONTRAST RIGHT 2022 1:12 PM CLINICAL INDICATIONS: Fracture of right greater trochanter. TECHNOLOGIST COMMENTS: Fractures, focus on right hip, assessing greate trochanter fracture PER ORDER QUESTION FOR THE RADIOLOGIST: Fractures, focus on right hip, assessing greate trochanter fracture PROTOCOL: Axial CT images of the extremity were obtained without IV contrast. TECHNIQUE: Multidetector CT axial slices of the right hip without IV contrast. Sagittal and coronal 2-D reformatting performed. All CT scans at this facility use dose modulation, iterative reconstruction, and/or weight based dosing when appropriate to reduce radiation dose to as low as reasonably achievable COMPARISON: Bilateral hips and pelvis radiographs 2022 FINDINGS: The fracture of the right greater trochanter with approximately 1.6 cm superior displacement/distraction at the fracture site are shown to have well-corticated margins on this exam and is consistent with an old fracture. No evidence for an acute fracture or dislocation of the right hip. There are degenerative changes of the right hip with joint space narrowing, osteophytes, and subchondral cystic change. Partially visualized lumbar spine degenerative change. No discrete hematoma in the visualized soft tissues. IMPRESSION: The displaced right greater trochanter fracture noted on the radiographs is chronic, without bony union. No evidence for an acute fracture. Electronically signed: Rodo Melissa. Transcribed by: [email or web address], User Resident: Electronically Signed by: RODO MELISSA @ 2022 01:26 PM Normal [facility] Comment on above: Order Comment: No: D o not add to previous draw HIPS BILATERAL 2 VWS WITH PE LVISon 2022 HIPS BILATERAL 2 VWS WITH PELVIS [facility] Department of Radiology [address] [place] [id number] Patient Name: KIARA BLANC : 1955 Sex: F Age: Race: White Pt. Location: [id number] Patient Status: I Ordered Date: 2022 9:05:00 AM Completed Date: 2022 09:57 AM Requesting Provider: DUY MCGEE Attending Provider: YRIS QUAN Report Copy To: Signs & Symptoms: Pain ( specify Location) History: See Comments Comments: R/O FX, R pelvic crest, greater trochanter Exam: HIPS BILATERAL 2 VWS WITH PELVIS Addendum Begins Note that after review of the subsequently performed CT of the right hip, the right greater trochanter fracture noted on the radiographs is shown to be chronic as detailed in the CT report. Electronically signed: Rodo Melissa. Addendum Ends HIPS BILATERAL 2 VWS WITH PELVIS 2022 9:57 AM CLINICAL INDICATIONS: Pain ( specify Location) TECHNOLOGIST COMMENTS: s/p fall bilateral hip and low back pain QUESTION FOR THE RADIOLOGIST: R/O FX, R pelvic crest, greater trochanter PROTOCOL: AP(PA) and Lateral views were obtained. COMPARISON: None FINDINGS: There is a fracture of the base of the right greater trochanter with superomedial displacement. An acute fracture is favored. No dislocation. There are degenerative changes of both hips, right worse than left with joint space narrowing. There is subchondral cystic change of the superior right acetabulum. Partially visualized lumbar spine degenerative change. No evidence for an acute fracture or dislocation of the left hip. No evidence for an acute pelvic fracture. There are extensive vascular calcifications. IMPRESSION: Displaced fracture of the right greater trochanter. An acute fracture is favored. This could be further characterized with CT if clinically indicated. Electronically signed: Rodo Melissa. Transcribed by: [email or web address], User Resident: Electronically Signed by: RODO SHIN @ 2022 02:13 PM Normal [facility] Comment on above: Order Comment: R/O F X, R pelvic crest, greater trochanter LUMBAR SPINE 2 OR 3 VWSon LUMBAR SPINE 2 OR 3 VWS [facility] Department of Radiology [address] [place] [phone] Patient Name: KIARA BLANC : 1955 Sex: F Age: Race: White Pt. Location: [address] [place] [address] Patient Status: I Ordered Date: 2022 9:10:00 AM Completed Date: 2022 09:57 AM Requesting Provider: DUY MCGEE Attending Provider: YRIS QUAN Report Copy To: Signs & Symptoms: Back Pain History: See Comments Comments: R/O Fx, fall in room, landed on coccyx, r/o compression fx Exam: LUMBAR SPINE 2 OR 3 VWS LUMBAR SPINE 2 OR 3 VWS 2022 9:57 AM CLINICAL INDICATIONS: Back Pain TECHNOLOGIST COMMENTS: s/p fall bilateral hip and low back pain QUESTION FOR RADIOLOGIST: R/O Fx, fall in room, landed on coccyx, r/o compression fx PROTOCOL: AP, Lateral and L5-S1 spot film was obtained. COMPARISON: None. FINDINGS: There is dextroconvex curvature of the lumbar spine. Mild retrolisthesis of L1 relative to L2 and L2 relative to L3, likely degenerative. Diffuse facet hypertrophy. Multilevel disc space narrowing most severe at L5-S1. Vacuum disc noted at L3-4. Aortic calcifications. No evidence for an acute fracture. IMPRESSION: No evidence for an acute fracture. Diffuse degenerative changes as described. Electronically signed: Rodo Melissa. Transcribed by: [email or web address], User Resident: Electronically Signed by: RODO MELISSA @ 2022 10:11 AM Normal [facility] Comment on above: Order Comment: No: D o not add to previous draw POC GLUCOSE LABon 2022 Glucose [Mass/Vol] 263 mg/dL High 70-100 [facility] Comment on above: Performed By: #### 3 5200 #### [facility] [address] [facility] [place] [address], [place] Glucose [Mass/Vol] 245 mg/dL High 70-100 [facility] Comment on above: Performed By: #### 3 5200 #### [facility] [address] [facility] [place] [address], [place] Glucose [Mass/Vol] 212 mg/dL High 70-100 [facility] Comment on above: Performed By: #### 3 5200 #### [facility] [address] [facility] [place] [address], [place] Glucose [Mass/Vol] 153 mg/dL High 70-100 [facility] Comment on above: Performed By: #### 8 5499 #### [facility] [address] [facility] [address], [place] TSH3on 2022 TSH 3RD GENERATION 1.23 uIU/mL Normal 0.34-5.60 [facility] Comment on above: Order Comment: No: D o not add to previous draw Performed By: #### 1 0070, [id number] #### [facility] [address] [place] [address], [place] VITAMIN B12on 2022 Cobalamin (Vitamin B12) [Mass/Vol] 436 pg/mL Normal 180-914 [facility] Comment on above: Order Comment: No: D o not add to previous draw Result Comment: REFE RENCE RANGES: 180-914 pg/mL Normal 145-179 pg/mL Indeterminate <145 pg/mL Deficient Performed By: #### 1 69, 44903 #### [facility] [address] [place] [address], [place] VITAMIN D 25-HYDROXYon 03-20 VITAMIN D 25-OH 20.1 ng/mL Low 30.0-80.0 [facility] Comment on above: Result Comment: >80. 0 Toxicity possible Performed By: #### 1 69, 19728 #### [facility] [address] [place] [address], [place] POC GLUCOSE LABon 03-19-2022 Glucose [Mass/Vol] 140 mg/dL High 70-100 [facility] Comment on above: Performed By: #### 8 5499 #### [facility] [address] [place] [address], [place] Glucose [Mass/Vol] 111 mg/dL High 70-100 [facility] Comment on above: Performed By: #### 1 69, 22468 #### [facility] [address] [place] [address], [place] Glucose [Mass/Vol] 143 mg/dL High 70-100 [facility] Comment on above: Performed By: #### 8 5499 #### [facility] [address] [place] [address], [place] Glucose [Mass/Vol] 232 mg/dL High 70-100 [facility] Comment on above: Performed By: #### 3 5200 #### [facility] [address] [place] [address], [place] *URINE CULTUREon 03-18-2022 *URINE CULTURE Clinical Report: (D) Specimen/Source: URINE/CLEAN VOID URINE Collected: 03/18/2022 12:00 Status: Final Last Updated: 2022 10:33 ISO (Final) >100,000 Cfu/Ml Uro-Genital Lucy ISO (Final) Presumptive Grover glabrata >100,000 Cfu/Ml Normal [facility] Comment on above: Performed By: #### 8 5499 #### [facility] [address] [facility] [address], [facility] MAGNESIUM BLOODon 03-18-2022 Magnesium [Mass/Vol] 1.9 mg/dL Normal 1.9-2.7 [facility] Comment on above: Order Comment: No: D o not add to previous draw Performed By: #### 1 0070, [id number] #### [facility] [address] [facility] [address], [facility] POC GLUCOSE LABon 03-18-2022 Glucose [Mass/Vol] 256 mg/dL High 70-100 [facility] Comment on above: Performed By: #### 8 5499 #### [facility] [address] [facility] [address], [place] Glucose [Mass/Vol] 262 mg/dL High 70-100 [facility] Comment on above: Performed By: #### 3 5200 #### [facility] [address] [facility] [address], [place] Glucose [Mass/Vol] 215 mg/dL High 70-100 [facility] Comment on above: Performed By: #### 3 5200 #### [facility] [address] [facility] [address], [place] Glucose [Mass/Vol] 361 mg/dL High 70-100 [facility] Comment on above: Performed By: #### 8 5499 #### [facility] [address] [facility] [address], [place] URINALYSIS REFLEXon 03-18-20 22 Appearance (U) TURBID Abnormal CLEAR [facility] Comment on above: Order Comment: Yes: Add to Previous draw if able Criteria for reflexing a culture was not met. Please call the lab at [phone] within 24 hours of collection time if culture is needed Performed By: #### 3 0965 #### [facility] [address] [place] [address], [facility] Bilirubin Ql (U) Negative Normal NEGATIVE [facility] Comment on above: Order Comment: Yes: Add to Previous draw if able Criteria for reflexing a culture was not met. Please call the lab at [phone] within 24 hours of collection time if culture is needed Performed By: #### 3 0965 #### [facility] [address] [place] [address], [facility] BUDDING YEAST MANY Abnormal NONE SEEN [facility] Comment on above: Order Comment: Yes: Add to Previous draw if able Criteria for reflexing a culture was not met. Please call the lab at [phone] within 24 hours of collection time if culture is needed Performed By: #### 3 0965 #### [facility] [address] [facility] [place] [address], [facility] Color (U) YELLOW Normal YELLOW [facility] Comment on above: Order Comment: Yes: Add to Previous draw if able Criteria for reflexing a culture was not met. Please call the lab at [phone] within 24 hours of collection time if culture is needed Performed By: #### 3 0965 #### [facility] [address] [place] [address], [facility] EPIS MANY Abnormal FEW,OCC,NON E SEEN [facility] Comment on above: Order Comment: Yes: Add to Previous draw if able Criteria for reflexing a culture was not met. Please call the lab at [phone] within 24 hours of collection time if culture is needed Performed By: #### 3 0965 #### [facility] [address] [place] [address], [facility] Glucose Ql (U) >=500 Abnormal NEGATIVE [facility] Comment on above: Order Comment: Yes: Add to Previous draw if able Criteria for reflexing a culture was not met. Please call the lab at [phone] within 24 hours of collection time if culture is needed Performed By: #### 3 0965 #### [facility] [address] [place] [address], [facility] Hemoglobin Ql (U) SMALL Abnormal NEGATIVE [facility] Comment on above: Order Comment: Yes: Add to Previous draw if able Criteria for reflexing a culture was not met. Please call the lab at [phone] within 24 hours of collection time if culture is needed Performed By: #### 3 0965 #### [facility] [address] [place] [address], [facility] KETONE Negative Normal NEGATIVE [facility] Comment on above: Order Comment: Yes: Add to Previous draw if able Criteria for reflexing a culture was not met. Please call the lab at [phone] within 24 hours of collection time if culture is needed Performed By: #### 3 0965 #### [facility] [address] [place] [address], [facility] LEUK TESHA LARGE Abnormal NEGATIVE [facility] Comment on above: Order Comment: Yes: Add to Previous draw if able Criteria for reflexing a culture was not met. Please call the lab at [phone] within 24 hours of collection time if culture is needed Performed By: #### 3 0965 #### [facility] [address] [facility] [place] [address], [facility] Nitrite Ql (U) Negative Normal NEGATIVE [facility] Comment on above: Order Comment: Yes: Add to Previous draw if able Criteria for reflexing a culture was not met. Please call the lab at [phone] within 24 hours of collection time if culture is needed Performed By: #### 3 0965 #### [facility] [address] [place] [address], [facility] pH (U) 6.0 [pH] Normal 5.0-8.0 [facility] Comment on above: Order Comment: Yes: Add to Previous draw if able Criteria for reflexing a culture was not met. Please call the lab at [phone] within 24 hours of collection time if culture is needed Performed By: #### 3 0965 #### [facility] [address] Protein Ql (U) 30 mg/dL Abnormal NEGATIVE [facility] Comment on above: Order Comment: Yes: Add to Previous draw if able Criteria for reflexing a culture was not met. Please call the lab at [phone] within 24 hours of collection time if culture is needed Performed By: #### 3 0965 #### [facility] [address] [facility] [place] [address], [facility] RBC 6-10 Abnormal NONE SEEN [facility] Comment on above: Order Comment: Yes: Add to Previous draw if able Criteria for reflexing a culture was not met. Please call the lab at [phone] within 24 hours of collection time if culture is needed Performed By: #### 3 0965 #### [facility] [address] [facility]. [address] SPEC GRAV 1.009 Low 1.015-1.020 [facility] Comment on above: Order Comment: Yes: Add to Previous draw if able Criteria for reflexing a culture was not met. Please call the lab at [phone] within 24 hours of collection time if culture is needed Performed By: #### 3 0965 #### [facility] [address] [facility]. [address] WBC UA >100 Abnormal NONE SEEN [facility] Comment on above: Order Comment: Yes: Add to Previous draw if able Criteria for reflexing a culture was not met. Please call the lab at [phone] within 24 hours of collection time if culture is needed Performed By: #### 3 0965 #### [facility] [address] [facility] [address] BASIC METABOLIC PANELon 06-2 Calcium [Mass/Vol] 8.3 mg/dL Low 8.6-10.3 [facility] Comment on above: Order Comment: No: D o not add to previous draw Performed By: #### 1 0070, [id number] #### [facility] [address] Chloride [Moles/Vol] 106 mmol/L Normal 98-107 [facility] Comment on above: Order Comment: No: D o not add to previous draw Performed By: #### 1 69, 08876 #### [facility] [address] [place] [address], [place] CO2 [Moles/Vol] 24 mmol/L Normal 21-31 [facility] Comment on above: Order Comment: No: D o not add to previous draw Performed By: #### 1 69, 57007 #### [facility] [address] [place] [address], [place] Creatinine [Mass/Vol] 0.73 mg/dL Normal 0.60-1.20 [facility] Comment on above: Order Comment: No: D o not add to previous draw Performed By: #### 1 69, 60944 #### [facility] [address] [place] [address], [place] GFR/1.73 sq M.predicted among blacks MDRD (S/P/Bld) [Vol rate/Area] mL/min/{1.73_m2} Normal >60 [facility] Comment on above: Order Comment: No: D o not add to previous draw Performed By: #### 1 69, 62263 #### [facility] [address] [place] [address], [place] GFR/1.73 sq M.predicted among non-blacks MDRD (S/P/Bld) [Vol rate/Area] mL/min/{1.73_m2} Normal >60 [facility] Comment on above: Order Comment: No: D o not add to previous draw Performed By: #### 1 69, 50779 #### [facility] [address] [place] [address], [place] Glucose [Mass/Vol] 218 mg/dL High 70-100 [facility] Comment on above: Order Comment: No: D o not add to previous draw Performed By: #### 1 69, 04505 #### [facility] [address] Potassium [Moles/Vol] 4.2 mmol/L Normal 3.5-5.1 [facility] Comment on above: Order Comment: No: D o not add to previous draw Performed By: #### 1 69, 63230 #### [facility] [address] [place] [address], [facility] Sodium [Moles/Vol] 136 mmol/L Normal 136-145 [facility] Comment on above: Order Comment: No: D o not add to previous draw Performed By: #### 1 69, 90063 #### [facility] [address] [facility] Urea nitrogen [Mass/Vol] 18 mg/dL Normal 7-25 [facility] Comment on above: Order Comment: No: D o not add to previous draw Performed By: #### 1 69, 53526 #### [facility] [address] [facility] [place] [address], [facility] CBC W/DIFFon 03-17-2022 ABS IMM GRANS 0.1 10*3/uL Normal 0.0-0.2 [facility] Comment on above: Order Comment: No: D o not add to previous draw Performed By: #### 8 6899 #### [facility] [address] [facility] [place] [address], [facility] ABS NEUTROPHILS 4.2 10*3/uL Normal 1.6-7.6 [facility] Comment on above: Order Comment: No: D o not add to previous draw Performed By: #### 8 3619 #### [facility] [address] [place] [address], [facility] Basophils (Bld) [#/Vol] 0.0 10*3/uL Normal 0.0-0.2 [facility] Comment on above: Order Comment: No: D o not add to previous draw Performed By: #### 8 8081 #### [facility] [address] [place] [address], [facility] Basophils/100 WBC (Bld) 0.4 % Normal 0.0-1.0 [facility] Comment on above: Order Comment: No: D o not add to previous draw Performed By: #### 8 5499 #### [facility] [address] [place] [address], [facility] Eosinophils (Bld) [#/Vol] 0.2 10*3/uL Normal 0.0-0.5 [facility] Comment on above: Order Comment: No: D o not add to previous draw Performed By: #### 8 5499 #### [facility] [address] [place] [address], [facility] Eosinophils/100 WBC (Bld) 3.4 % Normal 0.0-6.0 [facility] Comment on above: Order Comment: No: D o not add to previous draw Performed By: #### 8 5499 #### [facility] [address] [place] [address], [facility] Erythrocyte distribution width (RBC) [Ratio] 13.4 % Normal 11.5-15.0 [facility] Comment on above: Order Comment: No: D o not add to previous draw Performed By: #### 8 5499 #### [facility] [address] [place] [address], [facility] Hematocrit (Bld) [Volume fraction] 42.7 % Normal 36.0-45.0 [facility] Comment on above: Order Comment: No: D o not add to previous draw Performed By: #### 8 5499 #### [facility] [address] [place] [address], [facility] Hemoglobin (Bld) [Mass/Vol] 13.8 g/dL Normal 12.0-15.0 [facility] Comment on above: Order Comment: No: D o not add to previous draw Performed By: #### 8 5499 #### [facility] [address] [place] [address], [facility] IMMATURE GRANS 0.8 % Normal 0.0-1.0 [facility] Comment on above: Order Comment: No: D o not add to previous draw Performed By: #### 8 5499 #### [facility] [address] [facility] [place] [address], [facility] Lymphocytes (Bld) [#/Vol] 1.8 10*3/uL Normal 1.2-4.0 [facility] Comment on above: Order Comment: No: D o not add to previous draw Performed By: #### 8 5499 #### [facility] [address] [place] [address], [facility] Lymphocytes/100 WBC (Bld) 25.8 % Normal 20.0-45.0 [facility] Comment on above: Order Comment: No: D o not add to previous draw Performed By: #### 8 5499 #### [facility] [address] [place] [address], [facility] MCH (RBC) [Entitic mass] 28.3 pg Normal 27.0-33.0 [facility] Comment on above: Order Comment: No: D o not add to previous draw Performed By: #### 8 5499 #### [facility] [address] [place] [address], [facility] MCHC (RBC) [Mass/Vol] 32.3 g/dL Normal 32.0-35.0 [facility] Comment on above: Order Comment: No: D o not add to previous draw Performed By: #### 8 5499 #### [facility] [address] [facility] [place] [address], [facility] MCV (RBC) [Entitic vol] 87.7 fL Normal 82.0-98.0 [facility] Comment on above: Order Comment: No: D o not add to previous draw Performed By: #### 8 5499 #### [facility] [address] [place] [address], [facility] Monocytes (Bld) [#/Vol] 0.7 10*3/uL Normal 0.1-1.0 [facility] Comment on above: Order Comment: No: D o not add to previous draw Performed By: #### 8 5499 #### [facility] [address] [place] [address], [facility] MONOS 9.9 % Normal 5.0-12.0 [facility] Comment on above: Order Comment: No: D o not add to previous draw Performed By: #### 8 5499 #### [facility] [address] [place] [address], [facility] Neutrophils/100 WBC (Bld) 59.7 % Normal 40.0-72.0 [facility] Comment on above: Order Comment: No: D o not add to previous draw Performed By: #### 8 5499 #### [facility] [address] [place] [id number], [facility] Nucleated RBC/100 WBC (Bld) [Ratio] 0 % Normal 0-0 [facility] Comment on above: Order Comment: No: D o not add to previous draw Performed By: #### 8 5499 #### [facility] [address] [place] [address], [place] PLAT CNT 248 10*3/uL Normal 150-400 [facility] Comment on above: Order Comment: No: D o not add to previous draw Performed By: #### 8 5499 #### [facility] [address] [place] [id number], [place] RBC (Bld) [#/Vol] 4.87 10*6/uL Normal 3.80-5.00 [facility] Comment on above: Order Comment: No: D o not add to previous draw Performed By: #### 8 5499 #### [facility] [address] [place] [id number], [place] WBC (Bld) [#/Vol] 7.08 10*3/uL Normal 4.00-10.60 [facility] Comment on above: Order Comment: No: D o not add to previous draw Performed By: #### 8 5499 #### [facility] [address] [place] [address], [facility] MAGNESIUM BLOODon 03-17-2022 Magnesium [Mass/Vol] 1.5 mg/dL Low 1.9-2.7 [facility] Comment on above: Order Comment: No: D o not add to previous draw Performed By: #### 1 0070, 98331 #### [facility] [address] [place] [address], [facility] POC GLUCOSE LABon 03-17-2022 Glucose [Mass/Vol] 406 mg/dL High 70-100 [facility] Comment on above: Performed By: #### 1 0070, 13784 #### [facility] [address] [place] [address], [place] Glucose [Mass/Vol] 282 mg/dL High 70-100 [facility] Comment on above: Performed By: #### 8 5499 #### [facility] [address] [place] [address], [place] Glucose [Mass/Vol] 152 mg/dL High 70-100 [facility] Comment on above: Performed By: #### 8 5499 #### [facility] [address] [place] [address], [place] Glucose [Mass/Vol] 199 mg/dL High 70-100 [facility] Comment on above: Performed By: #### 3 5200 #### [facility] [address] [place] [address], [facility] TROPONIN-Ion 03-17-2022 Troponin I.cardiac [Mass/Vol] 0.05 ng/mL High 0.00-0.04 [facility] Comment on above: Order Comment: No: D o not add to previous draw Result Comment: REFE RENCE RANGES: 0.00 - 0.04 ng/ml NORMAL 0.05 - 0.50 ng/ml INDETERMINATE > 0.50 ng/ml CONSISTENT WITH AN M.I. Performed By: #### 1 0070, 22179 #### [facility] [address] [facility] [place] [address], [facility] Troponin I.cardiac [Mass/Vol] 0.06 ng/mL High 0.00-0.04 [facility] Comment on above: Order Comment: No: D o not add to previous draw Result Comment: REFE RENCE RANGES: 0.00 - 0.04 ng/ml NORMAL 0.05 - 0.50 ng/ml INDETERMINATE > 0.50 ng/ml CONSISTENT WITH AN M.I. Performed By: #### 3 5200 #### [facility] [address] [place] [address], [facility] Troponin I.cardiac [Mass/Vol] 0.06 ng/mL High 0.00-0.04 [facility] Comment on above: Order Comment: No: D o not add to previous draw Result Comment: REFE RENCE RANGES: 0.00 - 0.04 ng/ml NORMAL 0.05 - 0.50 ng/ml INDETERMINATE > 0.50 ng/ml CONSISTENT WITH AN M.I. Performed By: #### 1 0, 79742 #### [facility] [address] [place] [address], [facility] BASIC METABOLIC PANELon 06-2 Calcium [Mass/Vol] 9.1 mg/dL Normal 8.6-10.3 [facility] Comment on above: Order Comment: No: D o not add to previous draw Performed By: #### 8 5499 #### [facility] [address] [facility] [address], [facility] Chloride [Moles/Vol] 103 mmol/L Normal 98-107 [facility] Comment on above: Order Comment: No: D o not add to previous draw Performed By: #### 8 5499 #### [facility] [address] [facility] [place] [address], [facility] CO2 [Moles/Vol] 24 mmol/L Normal 21-31 [facility] Comment on above: Order Comment: No: D o not add to previous draw Performed By: #### 8 5499 #### [facility] [address] [place] [address], [place] Creatinine [Mass/Vol] 0.68 mg/dL Normal 0.60-1.20 [facility] Comment on above: Order Comment: No: D o not add to previous draw Performed By: #### 8 5499 #### [facility] [address] [place] [address], [place] GFR/1.73 sq M.predicted among blacks MDRD (S/P/Bld) [Vol rate/Area] mL/min/{1.73_m2} Normal >60 [facility] Comment on above: Order Comment: No: D o not add to previous draw Performed By: #### 8 5499 #### [facility] [address] [place] [address], [place] GFR/1.73 sq M.predicted among non-blacks MDRD (S/P/Bld) [Vol rate/Area] mL/min/{1.73_m2} Normal >60 [facility] Comment on above: Order Comment: No: D o not add to previous draw Performed By: #### 8 5499 #### [facility] [address] [place] [address], [place] Glucose [Mass/Vol] 196 mg/dL High 70-100 [facility] Comment on above: Order Comment: No: D o not add to previous draw Performed By: #### 8 5499 #### [facility] [address] [place] [address], [place] Potassium [Moles/Vol] 4.1 mmol/L Normal 3.5-5.1 [facility] Comment on above: Order Comment: No: D o not add to previous draw Performed By: #### 8 5499 #### [facility] [address] [place] [address], [facility] Sodium [Moles/Vol] 137 mmol/L Normal 136-145 [facility] Comment on above: Order Comment: No: D o not add to previous draw Performed By: #### 8 5499 #### [facility] [address] [place] [address], [facility] Urea nitrogen [Mass/Vol] 12 mg/dL Normal 7-25 [facility] Comment on above: Order Comment: No: D o not add to previous draw Performed By: #### 8 5499 #### [facility] [address] [facility] BNP (B-TYPE NATRIURETIC PEPT RAMAN)on 03-16-2022 Natriuretic peptide B (Bld) [Mass/Vol] 208 pg/mL High 0-100 [facility] Comment on above: Order Comment: No: D o not add to previous draw Result Comment: Give n the appropriate clinical setting a BNP result of >100 pg/mL indicates congestive heart failure. Performed By: #### 1 0070, 93107 #### [facility] [address] [facility] [place] [address], [facility] CARDIAC VICK 3-6on 2 CK [Catalytic activity/Vol] 43 U/L Normal 26-[address] [facility] Comment on above: Performed By: #### C MREP ####[facility] [address] [place], [place] [address]GoGerman Medrano CK.MB [Mass/Vol] 1.84 ng/mL Normal <=3.[address] [facility] Comment on above: Performed By: #### C MREP ####[facility] [address] [place], [place] [address]ZbGerman Medrano HSTROP 111.7 pg/mL Critically high 4.0-51.[address] [facility] Comment on above: Result Comment: CUT- OFF POINTS HAVE BEEN ESTABLISHED BASED ON THE FOURTH UNIVERSAL DEFINITIONS OF MYOCARDIALINFARCTION. THE UPPER REFERENCE LIMIT (URL) OF TROPONIN, DEFINED THE 99TH PERCENTILE OFcTnI DISTRIBUTION IN A REFERENCE POPULATION, HAS BEEN CONFIRMED THE DECISION THRESHOLDFOR DC DIAGNOSIS.repeated Performed By: #### C MREP ####[facility] [address] [place] [address]Dr. Antonella Medrano CK [Catalytic activity/Vol] 45 U/L Normal 26-192 [facility] Comment on above: Performed By: #### C MREP ####[facility] [address] [place] [address]Dr. Antonella Medrano CK.MB [Mass/Vol] 1.64 ng/mL Normal <=3.60 [facility] Comment on above: Performed By: #### C MREP ####[facility] [address] [place], [place] [address]Dr. Antonella Medrano HSTROP 88.9 pg/mL Critically high 4.0-51.[address] [facility] Comment on above: Result Comment: CUT- OFF POINTS HAVE BEEN ESTABLISHED BASED ON THE FOURTH UNIVERSAL DEFINITIONS OF MYOCARDIALINFARCTION. THE UPPER REFERENCE LIMIT (URL) OF TROPONIN, DEFINED THE 99TH PERCENTILE OFcTnI DISTRIBUTION IN A REFERENCE POPULATION, HAS BEEN CONFIRMED THE DECISION THRESHOLDFOR DC DIAGNOSIS. Performed By: #### C MREP ####[facility] [address] [place], [place] [address]Dr. Antonella Medrano CARDIAC VICK ADMITon 022 CK [Catalytic activity/Vol] 45 U/L Normal 26-192 [facility] Comment on above: Performed By: #### EMMANUEL Castillo MP ####[facility] [address] [place] [address]Dr. Antonella Medrano CK.MB [Mass/Vol] 1.93 ng/mL Normal <=3.[address] [facility] Comment on above: Performed By: #### EMMANUEL Castillo MP ####[facility] [address] [place], [place] [address]Dr. Antonella Medrano HSTROP 84.6 pg/mL Critically high 4.0-51.[address] [facility] Comment on above: Result Comment: CUT- OFF POINTS HAVE BEEN ESTABLISHED BASED ON THE FOURTH UNIVERSAL DEFINITIONS OF MYOCARDIALINFARCTION. THE UPPER REFERENCE LIMIT (URL) OF TROPONIN, DEFINED THE 99TH PERCENTILE OFcTnI DISTRIBUTION IN A REFERENCE POPULATION, HAS BEEN CONFIRMED THE DECISION THRESHOLDFOR DC DIAGNOSIS. Performed By: #### B EMMANUEL ROACH ####[facility] Moebixbepe[address] [place], [place] [address]Dr. Antonella Medrano CHRISTOPHER 79 ng/mL Normal 9-[address] [facility] Comment on above: Performed By: #### B EMMANUEL ROACH ####[facility] Euxqaibyuk[address] [place], [place] [address]Dr. Antonella Medrano CBC AUTO DIFFon 03-16-2022 BASO # 0.0 103/ul Normal 0.0-0.[address] [facility] Comment on above: Performed By: #### C BC ####[facility] Ylbcftuoxx[address] [place], [place] [address]Dr. Antonella Medrano Basophils/100 WBC (Bld) 0.5 % Normal 0.2-2.[address] [facility] Comment on above: Performed By: #### C BC ####[facility] Alofvooumr[address] [place], [place] [address]Dr. Antonella Medrano EO # 0.2 103/ul Normal 0.0-0.[address] [facility] Comment on above: Performed By: #### C BC ####[facility] Krowolkajx[address] [place], [place] [address]Dr. Antonella Medrano Eosinophils/100 WBC (Bld) 2.9 % Normal 0.9-7.[address] [facility] Comment on above: Performed By: #### C BC ####[facility] Snvoqfjlur[address] [place], [place] [address]Dr. Antonella Medrano Erythrocyte distribution width (RBC) [Ratio] 13.2 % Normal 11.0-15.[address] [facility] Comment on above: Performed By: #### C BC ####[facility] Bmxaelychm[address] [place], [place] [address]Dr. Antonella Medrano Hematocrit (Bld) [Volume fraction] 44.5 % Normal 36.0-48.[address] [facility] Comment on above: Performed By: #### C BC ####[facility] Toheyhijva[address] [place] [id number]. Antonella Medrano Hemoglobin (Bld) [Mass/Vol] 14.7 g/dL Normal 12.0-16.[address] [facility] Comment on above: Performed By: #### C BC ####[facility] Pvobzlmbbh[address] [place] [id number]. Antonella Medrano IG # 0.10 10e3/ul Critically high 0.00-0.[address] [facility] Comment on above: Performed By: #### C BC ####[facility] Zjikvguyel[address] [place] [id number]. Antonella Medrano IG % 1.3 % Critically high 0.0-0.[address] [facility] Comment on above: Performed By: #### C BC ####[facility] [address]qkshgh[address] [place] [address]Dr. Antonella Medrano LYMPH # 1.7 103/ul Normal 1.2-3.[address] [facility] Comment on above: Performed By: #### C BC ####[facility] Heoxkdhpbv9[address] [place] [id number]. Antonella Medrano Lymphocytes/100 WBC (Bld) 22.0 % Normal 20.5-60.[address] [facility] Comment on above: Performed By: #### C BC ####[facility] Lwdlxnvjik[address] [place] [id number]. Antonella Medrano MANUAL DIFF REQ NO Normal [facility] Comment on above: Performed By: #### C BC ####[facility] Llyaqcxiwr[address] [place] [id number]. Antonella Medrano MCH (RBC) [Entitic mass] 28.7 pg Normal 26.7-34.[address] [facility] Comment on above: Performed By: #### C BC ####[facility] Ogvvyunkzc[address] [place] [id number]. Antonella Medrano MCHC (RBC) [Mass/Vol] 33.0 g/dL Normal 29.9-35.[address] [facility] Comment on above: Performed By: #### C BC ####[facility] Igveqtepqz0283 [place] [id number]. Antonella Mitchell MCV (RBC) [Entitic vol] 86.7 fL Normal 81.0-99.[address] [facility] Comment on above: Performed By: #### C BC ####[facility] [address]szzvouh[address] [place] [address]Dr. Antonella Mitchell MONO # 0.7 103/ul Normal 0.3-0.[address] [facility] Comment on above: Performed By: #### C BC ####[facility] Qjxkqiifly[address] [place], [place] [address]Dr. Mariafilemon Medrano Monocytes/100 WBC (Bld) 9.8 % Normal 1.7-12.[address] [facility] Comment on above: Performed By: #### C BC ####[facility] Gzqjenanbi[address] [place], [place] [address]Dr. Antonella Mitchell NEUT # 4.8 103/ul Normal 1.4-6.[address] [facility] Comment on above: Performed By: #### C BC ####[facility] Tecugeypis[address] [place], [place] [address]Dr. Mariafilemon Medrano Neutrophils/100 WBC (Bld) 63.5 % Normal 43.0-75.[address] [facility] Comment on above: Performed By: #### C BC ####[facility] Thyrlhwesu[address] [place], [place] [address]Dr. Mariafilemon Medrano Platelet mean volume (Bld) [Entitic vol] 10.5 fL Normal 9.5-13.[address] [facility] Comment on above: Performed By: #### C BC ####[facility] Eeazsulgbt[address] [place], [place] [address]Dr. Mraiafilemon Medrano PLT 262 103/ul Normal 150-[address] [facility] Comment on above: Performed By: #### C BC ####[facility] Cxdulanabk[address] [place], [place] [address]Dr. Antonella Medrano RBC 5.13 106/ul Normal 4.20-5.[address] [facility] Comment on above: Performed By: #### C BC ####[facility] Kfgrascqxr[address] [place], [place] [address]Dr. Antonella Medrano WBC 7.5 103/ul Normal 4.0-11.[address] [facility] Comment on above: Performed By: #### C ####[facility] W[address]ucbsehx[address] [place], [place] [address]Pc. Antonella Medrano CBC W/DIFFon 03-16-2022 ABS IMM GRANS 0.1 10*3/uL Normal 0.0-0.2 [facility] Comment on above: Performed By: #### 1 69, 19705 #### [facility] [address] [place] [address], [facility] ABS NEUTROPHILS 4.3 10*3/uL Normal 1.6-7.6 [facility] Comment on above: Performed By: #### 1 69, 41550 #### [facility] [address] [place] [address], [facility] Basophils (Bld) [#/Vol] 0.0 10*3/uL Normal 0.0-0.2 [facility] Comment on above: Performed By: #### 1 69, 99412 #### [facility] [address] [place] [address], [facility] Basophils/100 WBC (Bld) 0.3 % Normal 0.0-1.0 [facility] Comment on above: Performed By: #### 1 69, 77157 #### [facility] [address] [facility] [place] [address], [facility] Eosinophils (Bld) [#/Vol] 0.3 10*3/uL Normal 0.0-0.5 [facility] Comment on above: Performed By: #### 1 69, 71356 #### [facility] [address] [place] [address], [facility] Eosinophils/100 WBC (Bld) 3.4 % Normal 0.0-6.0 [facility] Comment on above: Performed By: #### 1 69, 31685 #### [facility] [address] Erythrocyte distribution width (RBC) [Ratio] 13.5 % Normal 11.5-15.0 [facility] Comment on above: Performed By: #### 1 69, 31604 #### [facility] [address] [facility]. [address] Hematocrit (Bld) [Volume fraction] 46.2 % High 36.0-45.0 [facility] Comment on above: Performed By: #### 1 69, #### [facility] [address] [facility]. [address] Hemoglobin (Bld) [Mass/Vol] 15.3 g/dL High 12.0-15.0 [facility] Comment on above: Performed By: #### 1 69, #### [facility] [address] [facility]. [address] IMMATURE GRANS 0.9 % Normal 0.0-1.0 [facility] Comment on above: Performed By: #### 1 69, #### [facility] [address] [facility]. [address] Lymphocytes (Bld) [#/Vol] 2.2 10*3/uL Normal 1.2-4.0 [facility] Comment on above: Performed By: #### 1 69, #### [facility] [address] Lymphocytes/100 WBC (Bld) 29.1 % Normal 20.0-45.0 [facility] Comment on above: Performed By: #### 1 69, 57655 #### [facility] [address] [place] [address], [facility] MCH (RBC) [Entitic mass] 28.4 pg Normal 27.0-33.0 [facility] Comment on above: Performed By: #### 1 69, 95461 #### [facility] [address] [facility] [address], [facility] MCHC (RBC) [Mass/Vol] 33.1 g/dL Normal 32.0-35.0 [facility] Comment on above: Performed By: #### 1 69, #### [facility] [address] [facility] [place] [address], [facility] MCV (RBC) [Entitic vol] 85.9 fL Normal 82.0-98.0 [facility] Comment on above: Performed By: #### 1 69, 92056 #### [facility] [address] [facility] [address], [facility] Monocytes (Bld) [#/Vol] 0.7 10*3/uL Normal 0.1-1.0 [facility] Comment on above: Performed By: #### 1 69, 19321 #### [facility] [address] [facility] [address], [facility] MONOS 9.8 % Normal 5.0-12.0 [facility] Comment on above: Performed By: #### 1 69, 73021 #### [facility] [address] [facility] [place] [address], [facility] Neutrophils/100 WBC (Bld) 56.5 % Normal 40.0-72.0 [facility] Comment on above: Performed By: #### 1 69, 04998 #### [facility] [address] [facility] [place] [address], [facility] Nucleated RBC/100 WBC (Bld) [Ratio] 0 % Normal 0-0 [facility] Comment on above: Performed By: #### 1 69, 55031 #### [facility] [address] [place] [address], [facility] PLAT CNT 245 10*3/uL Normal 150-400 [facility] Comment on above: Performed By: #### 1 69, 70662 #### [facility] [address] [facility] [address], [facility] RBC (Bld) [#/Vol] 5.38 10*6/uL High 3.80-5.00 [facility] Comment on above: Performed By: #### 1 69, 39852 #### [facility] [address] [facility] [place] [address], [facility] WBC (Bld) [#/Vol] 7.56 10*3/uL Normal 4.00-10.60 [facility] Comment on above: Performed By: #### 1 69, 77438 #### [facility] [address] [facility] [address], [facility] CULTURE URINEon 03-16-2022 CULTURE URINE Culture Observations : MODERATE GROWTH OF MIXED GENITAL LUCY. NO POTENTIAL PATHOGENS SEEN. Normal [facility] Comment on above: Performed By: #### U RCX ####[facility] Rvcurzxxql[address] [place], [place] [address]Tz. Antonella Medrano Covid-19 PCR (CVDTBH)on 02-22 SARS-CoV-2 (COVID-19) RNA TAISHA+probe Ql (Unsp spec) Not detected Normal NOT DETECTED [facility] Comment on above: Result Comment: When diagnostic testing is negative, the possibility of a false negative should be considered inthe context of a patient's recent exposures and the presence of clinical signs and symptomsconsistent with SARS-CoV-2.This test is not yet approved or cleared by the [place] FDA. When there are no FDA-approved or cleared tests available, and other criteria are met, FDA can make tests available under an emergency access mechanism called an Emergency Use Authorization (EUA). The EUA for this test is supported by the Outpatient Pharmacy Manager of Health and Human Service's declaration that circumstances exist to justify the emergency use of in vitro diagnostics for the detection and/or diagnosis of the virus that causes COVID-19. This EUA will remain in effect for the duration of the COVID-19 declaration justifying emergency of IVDs, unless it is terminated or revoked by the FDA (after which the test may no longer be used). Performed By: #### C VDTB ####[facility] [address] [place] [address]Dr. Antonella Medrano ER URINE PROFILEon 2 Bilirubin Ql (U) Negative Normal NEGATIVE [facility] Comment on above: Performed By: #### Daniela LEE UMICRO ####[facility] Xeq[address]ofk[address] [place] [address]Dr. Antonella Mitchell Clarity (U) CLEAR Normal CLEAR [facility] Comment on above: Performed By: #### Daniela LEE UMICRO ####[facility] Hwsmgdufej[address] [place], [place] [address]Dr. Mariafilemon Mitchell Color (U) LT. YELLOW Normal YELLOW [facility] Comment on above: Performed By: #### Daniela LEE UMICRO ####[facility] Hiqetxmgcv[address] [place], [place] [address]Dr. Antonella Medrano ERUAHD A micrscopic examina tion will be performed if indicated. Normal [facility] Comment on above: Performed By: #### Daniela LEE ICRO ####[facility] Luestjaoya[address] [place], [place] [address]Dr. Antonella Medrano Glucose Ql (U) >[address] [facility] Comment on above: Performed By: #### Daniela LEE UMICRO ####[facility] Rjiebkilyq[address] [place], [place] [address]Dr. Antonella Medrano Hemoglobin Ql (U) TRACE-INTACT Abnormal NEGATIVE [facility] Comment on above: Performed By: #### Daniela LEE UMICRO ####[facility] Zvdreqdemm[address] [place], [place] [address]Dr. Antonella Medrano Ketones Ql (U) Negative Normal NEGATIVE [facility] Comment on above: Performed By: #### LATA CLARKRO ####[facility] Cktujurvro[address] [place], [place] [address]Dr. Antonella Medrano LEUKOCYTES Negative Normal NEGATIVE [facility] Comment on above: Performed By: #### LATA CLARKRO ####[facility] Awmfvjnfro[address] [place] [address]Dr. Mariafilemon Medrano Nitrite Ql (U) Negative Normal NEGATIVE [facility] Comment on above: Performed By: #### HALEY CLARK ####[facility] Wbwgbgyiyz[address] [place] [address]Dr. Mariafilemon Medrano pH (U) 6.0 [pH] Normal 5-[address] [facility] Comment on above: Performed By: #### HALEY CLARK ####[facility] [address]vjsudypjs[address] [place] [address]Dr. Antonella Medrano SPEC GRAVITY 1.010 Normal 1.005-<=1.0 25 [facility] Comment on above: Performed By: #### HALEY CLARK ####[facility] Othdqyvfxu[address] [place] [address]Dr. Antonella Medrano UA PROTEIN TRACE Normal NEGATIVE/ TRACE [facility] Comment on above: Performed By: #### HALEY CLARK ####[facility] C[address]flijqlto[address] [place], [place] [address]Dr. Antonella Medrano UR MICRO IND INDICATED Normal [facility] Comment on above: Performed By: #### HALEY CLARK ####[facility] [address]hf[address]hlry[address] [place], [place] [address]Dr. Antonella Medrano Urobilinogen Qn (U) 0.2 {Oleg'U}/dL Normal 0.2 - 1. 0 [facility] Comment on above: Performed By: #### HALEY CLARK ####[facility] Wu[address]wsrurz[address] [place] [address]Dr. Antonella Medrano POC GLUCOSE LABon 03-16-2022 Glucose [Mass/Vol] 337 mg/dL High 70-100 [facility] Comment on above: Performed By: #### 8 [id number] #### [facility] [address] [facility] [address], [facility] Glucose [Mass/Vol] 288 mg/dL High 70-100 [facility] Comment on above: Performed By: #### 1 0070, 21842 #### [facility] [address] [facility] [address], [facility] Glucose [Mass/Vol] 197 mg/dL High 70-100 [facility] Comment on above: Performed By: #### 1 69, 76123 #### [facility] [address] [facility] [address], [facility] POC SARS COV2 ANTIGEN NEGATI VEon 03-16-2022 POC SARS COV2 ANTIGEN NEG Negative Normal NEGATIVE [facility] Comment on above: Result Comment: Nega tive results should be treated as presumptive and confirmation with a molecular assay, if necessary, for patient management, may be performed. Negative results do not rule out SARS-CoV-2 infection and not should be used as the sole basis for treatment or patient management decisions, including infection control decisions. Negative results should be considered in the context of a patient's recent exposures, history, and the presence of clinical signs and symptoms consistent with COVID-19. The Clarity COVID-19 Antigen Rapid Test Cassette is a rapid chromatographic immunoassay intended for the qualitative detection of the nucleocapsid protein antigen from SARS-CoV-2 in direct nasopharyngeal swab (PIECE PRESSER) specimens from individuals who are suspected of COVID-19 by their healthcare provider within the first six days of symptom onset. Testing is limited to laboratories certified under the Clinical Laboratory Improvement Amendments of 1988 (CLIA), 42 U.S.C. ???263a, that meet the requirements to perform moderate complexity, high complexity, or waived tests. This test is authorized for use at the Point of Care (POC), i.e., in patient care settings operating under a CLIA Certificate of Waiver, Certificate of Compliance, or Certificate of Accreditation. Performed By: #### 8 [id number] #### [facility] [address] [place] [address], [facility] POINT OF CARE GLUCOSEon 02-22 Glucose [Mass/Vol] 343 mg/dL Critically high 74-106 [facility] Comment on above: Performed By: #### P OCGLUC ####[facility] Wcajjijowk[address] [place] [address]DrGerman Antonella Mitchell Glucose [Mass/Vol] 516 mg/dL Critically high 74-106 [facility] Comment on above: Result Comment: Resu lt Not Confirmed Performed By: #### P OCGLUC ####[facility] Xsdzmyirsw[address] [place], [place] [address]Dr. Antonella Medrano PROF CHEM 8 (BAS METB)on Anion gap [Moles/Vol] 10.9 mmol/L Normal Th [facility] Comment on above: Performed By: #### B MARLEY, EMMANUEL ####[facility] Fansjssdta[address] [place], [place] [address]Dr. Antonella Medrano Calcium [Mass/Vol] 8.9 mg/dL Normal 8.5-10.1 [facility] Comment on above: Performed By: #### B EMMANUEL ROACH ####[facility] Lrorwimxfb[address] [place], [place] [address]Dr. Antonella Medrano Chloride [Moles/Vol] 99 mmol/L Normal 98-[address] [facility] Comment on above: Performed By: #### B MARLEY, EMMANUEL ####[facility] Qnqntmfeof[address] [place], [place] [address]Dr. Antonella Medrano CO2 [Moles/Vol] 29.1 mmol/L Normal 21.0-32.0 [facility] Comment on above: Performed By: #### B MARLEY, EMMANUEL ####[facility] Krgcmsumnl[address] [place], [place] [address]Dr. Antonella Medrano Creatinine [Mass/Vol] 1.05 mg/dL Critically high 0.55-1.02 [facility] Comment on above: Performed By: #### B MARLEY, CMAALEXANDER ####[facility] Aiieifpinc[address] [place] [address]Dr. Antonella Medrano EGFR-AF FAROESE >60 Normal >=[address] [facility] Comment on above: Performed By: #### B MARLEY, ALVARODM ####[facility] Lbisxrdmtf[address] [place], [place] [address]Dr. Antonella Medrano EGFR-NON AF FAROESE 53 mL/min/1.73m2 Critically low >=[address] [facility] Comment on above: Performed By: #### B MARLEY, CMADM ####[facility] Thdkwgncew4[address] [place] [id number]. Antonella Medrano Glucose [Mass/Vol] 466 mg/dL Critically high 74-106 T [facility] Comment on above: Performed By: #### B MARLEY, CMADM ####[facility] Vyfykyzqxp9575 [place] [id number]. Antonella Medrano Potassium [Moles/Vol] 4.0 mmol/L Normal 3.5-5.1 [facility] Comment on above: Performed By: #### B MARLEY, CMADM ####[facility] Dfyongygpm[address] [place] [address]Dr. Antonella Medrano Sodium [Moles/Vol] 135 mmol/L Critically low 136-145 Th [facility] Comment on above: Performed By: #### B MARLEY, CMAALEXANDER ####[facility] Xvaqlodaff[address] [place] [address]Dr. Antonella Medrnao Urea nitrogen [Mass/Vol] 16.0 mg/dL Normal 7.0-18.0 [facility] Comment on above: Performed By: #### B MARLEY, CMADM ####[facility] Ufcihjexyj[address] [place] [address]Dr. Antonella Medrano Urea nitrogen/Creatinine [Mass ratio] 15.2 mg/mg Normal [facility] Comment on above: Performed By: #### B MARLEY, CMADM ####[facility] Tovvittprw[address] [place] [address]Dr. Antonella Medrano TROPONIN-Ion 03-16-2022 Troponin I.cardiac [Mass/Vol] 0.07 ng/mL High 0.00-0.04 [facility] Comment on above: Order Comment: No: D o not add to previous draw Result Comment: REFE RENCE RANGES: 0.00 - 0.04 ng/ml NORMAL 0.05 - 0.50 ng/ml INDETERMINATE > 0.50 ng/ml CONSISTENT WITH AN M.I. Performed By: #### 3 5200 #### [facility] [address] [place] [address], [facility] Troponin I.cardiac [Mass/Vol] 0.08 ng/mL High 0.00-0.04 [facility] Comment on above: Order Comment: No: D o not add to previous draw Result Comment: REFE LEAH RANGES: 0.00 - 0.04 ng/ml NORMAL 0.05 - 0.50 ng/ml INDETERMINATE > 0.50 ng/ml CONSISTENT WITH AN M.I. Performed By: #### 8 [id number] #### [facility] [address] [place] URINE MICROSCOPIC ONLYon BACTERIA TRACE Abnormal NONE SEEN [facility] Comment on above: Performed By: #### Daniela LEE UMICRO ####[facility] Mxqohoafvd[address] [place], [place] [address]Dr. Antonella Medrano Bacteria identified Cx Nom (U) INDICATED Normal [facility] Comment on above: Performed By: #### Daniela LEE UMICRO ####[facility] Cberfeqkfr[address] [place], [place] [address]Dr. Antonella Medrano CAST NONE SEEN Normal NONE SEEN [facility] Comment on above: Performed By: #### Daniela LEE UMICRO ####[facility] Kslvllgqtp[address] [place], [place] [address]Dr. Antonella Medrano Crystals LM Nom (Urine sed) NONE SEEN Normal NONE SEEN [facility] Comment on above: Performed By: #### Daniela LEE UMICRO ####[facility] Yaxusiwtqw20[address] [place], [place] [address]Dr. Antonella Medrano Epithelial cells LM Ql (Urine sed) FEW Abnormal NONE SEEN /RARE [facility] Comment on above: Performed By: #### E RUDominick UMICRO ####[facility] Kobbbzceih[address] [place], [place] [address]Dr. Antonella Medrano MUCOUS NONE SEEN Normal NONE SEEN [facility] Comment on above: Performed By: #### E ROSA UMICRO ####[facility] Fggqnusrrg[address] [place], [place] [address]Dr. Antonella Medrano RBC 5-10 Abnormal 0-[address] [facility] Comment on above: Performed By: #### HALEY CLARK ####[facility] Yudyavtxrz[address] [place], [place] [address]Dr. Antonella Medrano WBC 10-20 Abnormal NONE SEEN [facility] Comment on above: Performed By: #### HALEY CLARK ####[facility] [address]ktaovmd[address] [place] [address]Dr. Antonella Medrano XR CHEST 1 Von 03-16-2022 XR CHEST [address] [facility] CBC AUTO DIFFon 02-17-2022 BASO # 0.0 103/ul Normal 0.0-0.[address] [facility] Comment on above: Performed By: #### C BC ####[facility] Pkesmszjda[address] [place], [place] [address]Dr. Antonella Medrano Basophils/100 WBC (Bld) 0.4 % Normal 0.2-2.[address] [facility] Comment on above: Performed By: #### C BC ####[facility] Iblbkrlbbl[address] [place], [place] [address]Dr. Antonella Medrano EO # 0.2 103/ul Normal 0.0-0.[address] [facility] Comment on above: Performed By: #### C BC ####[facility] Urujwtvuyh[address] [place], [place] [address]Dr. Antonella Medrano Eosinophils/100 WBC (Bld) 2.8 % Normal 0.9-7.[address] [facility] Comment on above: Performed By: #### C BC ####[facility] Dzpngnmxpb3936[address] [place], [place] [address]Dr. Antonella Medrano Erythrocyte distribution width (RBC) [Ratio] 12.5 % Normal 11.0-15.[address] [facility] Comment on above: Performed By: #### C BC ####[facility] Lokqzejekp247[address] [place], [place] [address]Dr. Antonella Medrano Hematocrit (Bld) [Volume fraction] 45.7 % Normal 36.0-48.[address] [facility] Comment on above: Performed By: #### C BC ####[facility] Qfeaystbom4780[address] [place], [place] [address]Dr. Antonella Medrano Hemoglobin (Bld) [Mass/Vol] 15.1 g/dL Normal 12.0-16.[address] [facility] Comment on above: Performed By: #### C BC ####[facility] Eaftffienw[address] [place] [address]Dr. Antonella Medrano IG # 0.04 10e3/ul Critically high 0.00-0.03 [facility] Comment on above: Performed By: #### C BC ####[facility] Ftxrikfcjo13[address] [place] [address]Dr. Antonella Medrano IG % 0.5 % Normal 0.0-0.5 [facility] Comment on above: Performed By: #### C BC ####[facility] Liveiwynbf4299[address] [place], [place] [address]DrGerman Medrano LYMPH # 2.3 103/ul Normal 1.2-3.[address] [facility] Comment on above: Performed By: #### C BC ####[facility] Ialndlnesj492[address] [place], [place] [address]Dr. Antonella Medrano Lymphocytes/100 WBC (Bld) 26.7 % Normal 20.5-60.[address] [facility] Comment on above: Performed By: #### C BC ####[facility] Grrzeffzlc550[address] [place], [place] [address]DrGerman Medrano MANUAL DIFF REQ NO Normal [facility] Comment on above: Performed By: #### C BC ####[facility] Yswxdahnez407[address] [place], [place] [address]Dr. Antonella Medrano MCH (RBC) [Entitic mass] 28.4 pg Normal 26.7-34.[address] [facility] Comment on above: Performed By: #### C BC ####[facility] Zteyxzlfse059[address] [place], [place] [address]Dr. Antonella Medrano MCHC (RBC) [Mass/Vol] 33.0 g/dL Normal 29.9-35.[address] [facility] Comment on above: Performed By: #### C BC ####[facility] Ghbcetjwnd7299[address] [place], [place] [address]DrGerman Medrano MCV (RBC) [Entitic vol] 86.1 fL Normal 81.0-99.[address] [facility] Comment on above: Performed By: #### C BC ####[facility] Naamcsqvyc77[address] [place] [address]DrGerman Antonella Medrano MONO # 0.7 103/ul Normal 0.3-0.[address] [facility] Comment on above: Performed By: #### C BC ####[facility] Eqigkvjckj6957 [place] [address]DrGerman Medrano Monocytes/100 WBC (Bld) 7.8 % Normal 1.7-12.[address] [facility] Comment on above: Performed By: #### C BC ####[facility] Zickvgxucf729[address] [place], [place] [address]DrGerman Antonella Medrano NEUT # 5.2 103/ul Normal 1.4-6.[address] [facility] Comment on above: Performed By: #### C BC ####[facility] Pvzrvismym5912[address] [place], [place] [address]Dr. Antonella Medrano Neutrophils/100 WBC (Bld) 61.8 % Normal 43.0-75.[address] [facility] Comment on above: Performed By: #### C BC ####[facility] Etghhquess85[address] [place], [place] [address]DrGerman Mariafilemon Medrano Platelet mean volume (Bld) [Entitic vol] 11.8 fL Normal 9.5-13.[address] [facility] Comment on above: Performed By: #### C BC ####[facility] Ezlwgyvqxl7426[address] [place], [place] [address]Dr. Antonella Mitchell PLT 203 103/ul Normal 150-[address] [facility] Comment on above: Performed By: #### C BC ####[facility] Valbxqupds767[address] [place], [place] [address]DrGerman Medrano RBC 5.31 106/ul Normal 4.20-5.[address] [facility] Comment on above: Performed By: #### C BC ####[facility] Rrvwvlsufq239[address] [place], [place] [address]DrGerman Medrano WBC 8.4 103/ul Normal 4.0-11.0 [facility] Comment on above: Performed By: #### C BC ####[facility] Tlbkovrfud9[address] [place], [place] [address]Dr. Antonella Medrano POINT OF CARE GLUCOSEon 01-22 Glucose [Mass/Vol] 363 mg/dL Critically high 74-106 [facility] Comment on above: Performed By: #### P OCGLUC ####[facility] Zyizuxwopj14[address] [place] [address]Dr. Antonella Medrano Glucose [Mass/Vol] 288 mg/dL Critically high 74-106 [facility] Comment on above: Performed By: #### P OCGLUC ####[facility] Qmarygbvjv790[address] [place], [place] [address]DrGerman Medrano PROF CHEM 8 (BAS METB)on Anion gap [Moles/Vol] 12.1 mmol/L Normal [facility] Comment on above: Performed By: #### B MP ####[facility] Tdysexcoeq278[address] [place], [place] [address]Dr. Antonella Medrano Calcium [Mass/Vol] 8.7 mg/dL Normal 8.5-10.1 [facility] Comment on above: Performed By: #### B MP ####[facility] Mssmqwfzuu7860[address] [place], [place] [address]Dr. Antonella Medrano Chloride [Moles/Vol] 104 mmol/L Normal 98-107 [facility] Comment on above: Performed By: #### B MP ####[facility] Fcoduzzaat313[address] [place], [place] [address]DrGerman Medrano CO2 [Moles/Vol] 23.3 mmol/L Normal 21.0-32.0 [facility] Comment on above: Performed By: #### B MP ####[facility] Mhkmvlttvx2925[address] [place], [place] [address]DrGerman Medrano Creatinine [Mass/Vol] 0.79 mg/dL Normal 0.55-1.02 [facility] Comment on above: Performed By: #### B MP ####[facility] Putsnozkjk5212[address] [place], [place] [address]Dr. Antonella Medrano EGFR-AF FAROESE >60 Normal >=60 [facility] Comment on above: Performed By: #### B MP ####[facility] Vahdgcjxef70[address] [place] [address]Dr. Mariafilemon Mitchell EGFR-NON AF FAROESE >60 Normal >=60 [facility] Comment on above: Performed By: #### B MP ####[facility] Zrbbukxzaa2941 [place] [address]Dr. Antonella Medrano Glucose [Mass/Vol] 291 mg/dL Critically high 74-106 [facility] Comment on above: Performed By: #### B MP ####[facility] Lsawkjpbcw8910[address] [place], [place] [address]Dr. Antonella Medrano Potassium [Moles/Vol] 4.4 mmol/L Normal 3.5-5.1 [facility] Comment on above: Performed By: #### B MP ####[facility] Euoewxtvzw4960[address] [place], [place] [address]Dr. Antonella Medrano Sodium [Moles/Vol] 135 mmol/L Critically low 136-145 [facility] Comment on above: Performed By: #### B MP ####[facility] Sveeeoamrs140[address] [place], [place] [address]Dr. Antonella Medrano Urea nitrogen [Mass/Vol] 20.0 mg/dL Critically high 7.0-18.0 [facility] Comment on above: Performed By: #### B MP ####[facility] Nrxmjablap6030[address] [place], [place] [address]Dr. Antonella Medrano Urea nitrogen/Creatinine [Mass ratio] 25.3 mg/mg Normal [facility] Comment on above: Performed By: #### B MP ####[facility] Ilzokkgdkm150[address] [place], [place] [address]Dr. Antonella Medrano CBC AUTO DIFFon 02-16-2022 BASO # 0.0 103/ul Normal 0.0-0.1 [facility] Comment on above: Performed By: #### C BC ####[facility] Egsmaewmaq258[address] [place], [place] [address]Dr. Antonella Medrano Basophils/100 WBC (Bld) 0.3 % Normal 0.2-2.[address] [facility] Comment on above: Performed By: #### C BC ####[facility] Papwqaiwex2339[address] [place], [place] [address]Dr. Antonella Medrano EO # 0.1 103/ul Normal 0.0-0.[address] [facility] Comment on above: Performed By: #### C BC ####[facility] Cfumzjryav200[address] [place], [place] [address]Dr. Antonella Mitchell Eosinophils/100 WBC (Bld) 1.2 % Normal 0.9-7.[address] [facility] Comment on above: Performed By: #### C BC ####[facility] Lmplkwnrdl7433[address] [place], [place] [address]Dr. Antonella Mitchell Erythrocyte distribution width (RBC) [Ratio] 12.5 % Normal 11.0-15.[address] [facility] Comment on above: Performed By: #### C BC ####[facility] Bufotysssc1214[address] [place], [place] [address]Dr. Antonella Medrano Hematocrit (Bld) [Volume fraction] 51.7 % Critically high 36.0-48.0 [facility] Comment on above: Performed By: #### C BC ####[facility] Dypmmszqzb201[address] [place], [place] [address]Dr. Antonella Medrano Hemoglobin (Bld) [Mass/Vol] 17.2 g/dL Critically high 12.0-16.[address] [facility] Comment on above: Performed By: #### C BC ####[facility] Rlmvgpuyly308[address] [place], [place] [address]Dr. Antonella Medrano IG # 0.08 10e3/ul Critically high 0.00-0.[address] [facility] Comment on above: Performed By: #### C BC ####[facility] Eesvnjjlpg8423[address] [place], [place] [address]DrGerman Medrano IG % 0.8 % Critically high 0.0-0.[address] [facility] Comment on above: Performed By: #### C BC ####[facility] Yulupmllil474[address] [place], [place] [address]Dr. Antonella Medrano LYMPH # 2.3 103/ul Normal 1.2-3.[address] [facility] Comment on above: Performed By: #### C BC ####[facility] Lrsqzlyzii6241 [place] [address]DrGerman Medrano Lymphocytes/100 WBC (Bld) 22.1 % Normal 20.5-60.[address] [facility] Comment on above: Performed By: #### C BC ####[facility] Gocwhdeiai5020 [place] [address]DrGerman Medrano MANUAL DIFF REQ NO Normal [facility] Comment on above: Performed By: #### C BC ####[facility] Natdykjotk0115 [place] [address]DrGerman Medrano MCH (RBC) [Entitic mass] 28.5 pg Normal 26.7-34.[address] [facility] Comment on above: Performed By: #### C BC ####[facility] Tugscysbxh597[address] [place], [place] [address]Dr. Antonella Medrano MCHC (RBC) [Mass/Vol] 33.3 g/dL Normal 29.9-35.[address] [facility] Comment on above: Performed By: #### C BC ####[facility] Rikwypwvuk470[address] [place], [place] [address]DrGerman Medrano MCV (RBC) [Entitic vol] 85.7 fL Normal 81.0-99.[address] [facility] Comment on above: Performed By: #### C BC ####[facility] Opwsbxxgjh601[address] [place], [place] [address]DrGerman Medrano MONO # 0.9 103/ul Critically high 0.3-0.[address] [facility] Comment on above: Performed By: #### C BC ####[facility] Ytnqzvazvf4875[address] [place], [place] [address]DrGerman Medrano Monocytes/100 WBC (Bld) 8.5 % Normal 1.7-12.[address] [facility] Comment on above: Performed By: #### C BC ####[facility] Mumwhalnem383[address] [place], [place] [address]DrGerman Medrano NEUT # 7.0 103/ul Critically high 1.4-6.[address] [facility] Comment on above: Performed By: #### C BC ####[facility] Wpwlcrlxzy2675 [place] [address]Dr. Antonella Medrano Neutrophils/100 WBC (Bld) 67.1 % Normal 43.0-75.[address] [facility] Comment on above: Performed By: #### C BC ####[facility] Fsksxnotaa0854 [place] [address]Dr. Antonella Medrano Platelet mean volume (Bld) [Entitic vol] 11.3 fL Normal 9.5-13.[address] [facility] Comment on above: Performed By: #### C BC ####[facility] Ywoexetyqr1567 [place] [address]Dr. Antonella Medrano PLT 279 103/ul Normal 150-[address] [facility] Comment on above: Performed By: #### C BC ####[facility] Kfkrgwiuqj4718 [place] [address]Dr. Antonella Medrano RBC 6.03 106/ul Critically high 4.20-5.[address] [facility] Comment on above: Performed By: #### C BC ####[facility] Dosqcubhpj7570 [place] [address]Dr. Antonella Medrano WBC 10.4 103/ul Normal 4.0-11.[address] [facility] Comment on above: Performed By: #### C BC ####[facility] Zmtxaxeonj409[address] [place], [place] [address]Dr. Antonella Medrano CT HEAD WO CONon 02-16-2022 CT HEAD WO CON Normal [facility] CULTURE URINEon 02-16-2022 CULTURE URINE Culture Observations : LIGHT GROWTH OF MIXED GENITAL LUCY. NO POTENTIAL PATHOGENS SEEN. Normal [facility] Comment on above: Performed By: #### U RCX ####[facility] Gspexammuv8137 [place] [address]Dr. Antonella Medrano [facility]22 SARS-CoV-2 (COVID-19) RNA TAISHA+probe Ql (Unsp spec) Not detected Normal NOT DETECTED [facility] Comment on above: Result Comment: When diagnostic testing is negative, the possibility of a false negative should be considered inthe context of a patient's recent exposures and the presence of clinical signs and symptomsconsistent with SARS-CoV-2.This test is not yet approved or cleared by the [place] FDA. When there are no FDA-approved or cleared tests available, and other criteria are met, FDA can make tests available under an emergency access mechanism called an Emergency Use Authorization (EUA). The EUA for this test is supported by the [place] of Health and Human Service's declaration that circumstances exist to justify the emergency use of in vitro diagnostics for the detection and/or diagnosis of the virus that causes COVID-19. This EUA will remain in effect for the duration of the COVID-19 declaration justifying emergency of IVDs, unless it is terminated or revoked by the FDA (after which the test may no longer be used). Performed By: #### C VDTB ####[facility] Ujxgkozknk15[address] [place], [place] [address]Dr. Antonella Medrano ER URINE PROFILEon 2 Bilirubin Ql (U) Negative Normal NEGATIVE [facility] Comment on above: Performed By: #### U MICRO, ERUR ####[facility] Gbpagmsyoh807[address] [place], [place] [address]Dr. Antonella Medrano Clarity (U) CLEAR Normal CLEAR [facility] Comment on above: Performed By: #### U MICRO, ERUR ####[facility] Myowtekkoe124[address] [place], [place] [address]Dr. Antonella Medrano Color (U) YELLOW Normal YELLOW [facility] Comment on above: Performed By: #### U MICRO, ERUR ####[facility] Nbgklttwra260[address] [place], [place] [address]Dr. Antonella RAZOAHD A micrscopic examina tion will be performed if indicated. Normal [facility] Comment on above: Performed By: #### U MICRO, ERUR ####[facility] Kapykpfhvx7075[address] [place], [place] [address]Dr. Antonella Medrano Glucose Ql (U) >1000 Abnormal NEGATIVE [facility] Comment on above: Performed By: #### U MICRO, ERUR ####[facility] Gsadzlxhiu2943 [place] [address]Dr. Antonella Medrano Hemoglobin Ql (U) SMALL Abnormal NEGATIVE [facility] Comment on above: Performed By: #### U MICRO, ERUR ####[facility] Dbouusuhry9130 [place] [address]Dr. Antonella Medrano Ketones Ql (U) Negative Normal NEGATIVE [facility] Comment on above: Performed By: #### U MICRO, ERUR ####[facility] Bamjsnkzby799[address] [place], [place] [address]Dr. Antonella Medrano LEUKOCYTES SMALL Abnormal NEGATIVE [facility] Comment on above: Performed By: #### U MICRO, ERUR ####[facility] Vxdmlaqmdp595[address] [place], [place] [address]Dr. Antonella Medrano Nitrite Ql (U) Negative Normal NEGATIVE [facility] Comment on above: Performed By: #### U MICRO, ERUR ####[facility] Jhlhzxctbx599[address] [place], [place] [address]Dr. Antonella Medrano pH (U) 5.5 [pH] Normal 5-[address] [facility] Comment on above: Performed By: #### U MICRO, ERUR ####[facility] Vequfzjoxi364[address] [place], [place] [address]Dr. Antonella Medrano Protein (U) [Mass/Vol] 100 mg/dL Abnormal NEGAT LAZ/ TRACE [facility] Comment on above: Performed By: #### U MICRO, ERUR ####[facility] Hfoatgxshg824[address] [place], [place] [address]Dr. Antonella Medrano SPEC GRAVITY 1.025 Normal 1.005-<=1.[address] [facility] Comment on above: Performed By: #### U MICRO, ERUR ####[facility] Ypjpyrcnpw22[address] [place], [place] [address]Dr. Antonella Medrano UR MICRO IND INDICATED Normal [facility] Comment on above: Performed By: #### U MICRO, ERUR ####[facility] Ecfwahwjaf7399[address] [place], [place] [address]Dr. Antonella Medrano Urobilinogen Qn (U) 0.2 {Oleg'U}/dL Normal 0.2 - 1. 0 [facility] Comment on above: Performed By: #### U MICRO, ERUR ####[facility] Xswakmdgpn2821 [place] [address]Dr. Antonella Medrano LACTATE/LACTIC ACIDon 2021 Lactate [Moles/Vol] 1.2 mmol/L Normal 0.4-1.9 [facility] Comment on above: Performed By: #### L ACT ####[facility] Npauiezicz5[address] [place] [address]Dr. Antonella Medrano Lactate [Moles/Vol] 2.5 mmol/L Critically high 0.4-1.9 [facility] Comment on above: Performed By: #### L ACT ####[facility] Aeuvfqhkwu1092 [place] [address]Dr. Antonella Medrano POINT OF CARE GLUCOSEon 01-22 Glucose [Mass/Vol] 308 mg/dL Critically high 74-106 [facility] Comment on above: Performed By: #### P OCGLUC ####[facility] Xdvmypwqfh5171 [place] [address]Dr. Antonella Medrano Glucose [Mass/Vol] 356 mg/dL Critically high -106 [facility] Comment on above: Performed By: #### P OCGLUC ####[facility] Rzpmmwpqvc6620 [place] [address]Dr. Antonella Medrano Glucose [Mass/Vol] 254 mg/dL Critically high 74-106 [facility] Comment on above: Performed By: #### P OCGLUC ####[facility] Pndzbtvzyd3594 [place] [address]Dr. Antonella Medrano Glucose [Mass/Vol] 103 mg/dL Normal 74-106 [facility] Comment on above: Performed By: #### P OCGLUC ####[facility] Ttriibhmky3834 [place] [address]Dr. Antonella Medrano PROF 14(COMP METB)on 022 Albumin [Mass/Vol] 3.0 g/dL Critically low 3.4-5.0 [facility] Comment on above: Performed By: #### C MP ####[facility] Tvsjeowaei9946 [place] [address]Dr. Antonella Medrano Albumin/Globulin [Mass ratio] 0.8 {ratio} Normal [facility] Comment on above: Performed By: #### C MP ####[facility] Bnojhqxepx0422 [place] [address]Dr. Antonella Medrano ALP [Catalytic activity/Vol] 109 U/L Normal 46-116 [facility] Comment on above: Performed By: #### C MP ####[facility] Zszhztwhsr64[address] [place], [place] [address]Dr. Antonella Medrano ALT [Catalytic activity/Vol] 18 U/L Normal 14-59 [facility] Comment on above: Performed By: #### C MP ####[facility] Lzzafgwrjp510[address] [place], [place] [address]Dr. Antonella Medrano Anion gap [Moles/Vol] 14.5 mmol/L Normal [facility] Comment on above: Performed By: #### C MP ####[facility] Zyrpgfgbge489[address] [place], [place] [address]Dr. Mariafilemon Medrano AST [Catalytic activity/Vol] 11 U/L Critically low 15-37 [facility] Comment on above: Performed By: #### C MP ####[facility] Eglwtboyqb1517[address] [place], [place] [address]Dr. Antonella Medrano Bilirubin [Mass/Vol] 0.3 mg/dL Normal 0.2-1.0 [facility] Comment on above: Performed By: #### C MP ####[facility] Pckyycjcvp563[address] [place], [place] [address]Dr. Antonella Medrano Calcium [Mass/Vol] 9.2 mg/dL Normal 8.5-10.1 [facility] Comment on above: Performed By: #### C MP ####[facility] Gixlwryifk897[address] [place], [place] [address]Dr. Antonella Medrano Chloride [Moles/Vol] 99 mmol/L Normal 98-107 [facility] Comment on above: Performed By: #### C MP ####[facility] Rpbmtzcdln5297 [place] [id number]. Antonella Medrano CO2 [Moles/Vol] 25.5 mmol/L Normal 21.0-32.[address] [facility] Comment on above: Performed By: #### C MP ####[facility] Yvtjmjomjg6213 [place] [address]Dr. Antonella Medrano Creatinine [Mass/Vol] 1.57 mg/dL Critically high 0.55-1.[address] [facility] Comment on above: Performed By: #### C MP ####[facility] Ktowobwsmn4497 [place] [id number]. Antonella Medrano EGFR-AF FAROESE 40 mL/min/1.73m2 Critically low >=[address] [facility] Comment on above: Performed By: #### C MP ####[facility] Rcmzlcumaa327[address] [place], [place] [address]Dr. Antonella Medrano EGFR-NON AF FAROESE 33 mL/min/1.73m2 Critically low >=[address] [facility] Comment on above: Performed By: #### C MP ####[facility] Qvmxrpzgis6669[address] [place], [place] [address]Dr. Antonella Medrano Globulin (S) [Mass/Vol] 3.9 g/dL Normal [facility] Comment on above: Performed By: #### C MP ####[facility] Rzpgagwjen8010 [place] [address]Dr. Antonella Medrano Glucose [Mass/Vol] 99 mg/dL Normal 74-[address] [facility] Comment on above: Performed By: #### C MP ####[facility] Alsfutcxdl9336 [place] [address]Dr. Antonella Medrano Potassium [Moles/Vol] 4.0 mmol/L Normal 3.5-5.[address] [facility] Comment on above: Performed By: #### C MP ####[facility] Sgtkpgahdm101[address] [place], [place] [address]Dr. Antonella Medrano Protein [Mass/Vol] 6.9 g/dL Normal 6.4-8.[address] [facility] Comment on above: Performed By: #### C MP ####[facility] Fseawkluql5870 [place] [address]Dr. Antonella Medrano Sodium [Moles/Vol] 135 mmol/L Critically low 136-[address] [facility] Comment on above: Performed By: #### C MP ####[facility] Mphnnlziqr4980 [place] [address]Dr. Antonella Medrano Urea nitrogen [Mass/Vol] 35.0 mg/dL Critically high 7.0-18.[address] [facility] Comment on above: Performed By: #### C MP ####[facility] Oviohhfafl9232 [place] [address]Dr. Antonella Medrano Urea nitrogen/Creatinine [Mass ratio] 22.3 mg/mg Normal [facility] Comment on above: Performed By: #### C MP ####[facility] Iwlxvkdnul845[address] [place], [place] [address]Dr. Antonella Medrano URINE MICROSCOPIC ONLYon BACTERIA TRACE Abnormal NONE SEEN [facility] Comment on above: Performed By: #### U MICRO, ERUR ####[facility] Bwpqtsudlq699[address] [place], [place] [address]Dr. Antonella Medrano Bacteria identified Cx Nom (U) INDICATED Normal [facility] Comment on above: Performed By: #### U MICRO, ERUR ####[facility] Shblaopqtr9956 [place] [address]Dr. Antonella Medrano CAST SEEN Abnormal NONE SEEN [facility] Comment on above: Performed By: #### U MICRO, ERUR ####[facility] Mctrtopkdq[address] [place], [place] [address]Dr. Antonella Medrano Crystals LM Nom (Urine sed) NONE SEEN Normal NONE SEEN [facility] Comment on above: Performed By: #### U MICRO, ERUR ####[facility] Ksxjjzmkpx467[address] [place], [place] [address]Dr. Antonella Medrano Epithelial cells LM Ql (Urine sed) RARE Normal NONE SEEN /RARE [facility] Comment on above: Performed By: #### U MICRO, ERUR ####[facility] Yxfnrvzpyt9435 [place], [place] [address]Ij. Antonella Medrano MUCOUS NONE SEEN Normal NONE SEEN [facility] Comment on above: Performed By: #### U MICRO, ERUR ####[facility] Leslenbcpk0258 [place], [place] [address]Fp. Antonella Medrano RBC 0-2 Normal 0-[address] [facility] Comment on above: Performed By: #### U MICRO, ERUR ####[facility] Burwfrsipy4[address] [place], [place] [address]At. Antonella Medrano WBC 20-50 Abnormal NONE SEEN [facility] Comment on above: Performed By: #### U MICRO, ERUR ####[facility] Vpsyqrrjts4336 [place], [place] [address]Fd. Antonella Medrano XR CHEST 1 Von 02-16-2022 XR CHEST [address] [facility] Complete Blood Counton 02-15 Erythrocyte distribution width (RBC) [Ratio] 12.4 % Normal 11.0-15.0 [facility] Executive Assistant Comment on above: Performed By: #### C BC, CMP #### [facility] [address] [place], [place] [id number] Hematocrit (Bld) [Volume fraction] 50.9 % High 35.0-47.0 [facility] Executive Assistant Comment on above: Performed By: #### C BC, CMP #### [facility] [address] [place], [place] [id number] Hemoglobin (Bld) [Mass/Vol] 17.2 g/dL High 11.6-15.5 [facility] Executive Assistant Comment on above: Performed By: #### C BC, CMP #### [facility] [address], [place] [id number] MCH (RBC) [Entitic mass] 28.6 pg Normal 27.0-33.0 [facility] Specialist Comment on above: Performed By: #### C BC, CMP #### [facility] [address], [place] [id number] MCHC (RBC) [Mass/Vol] 33.8 g/dL Normal 32.0-36.0 [facility] Comment on above: Performed By: #### C BC, CMP #### [facility] [address], [place] [id number] MCV (RBC) [Entitic vol] 85 fL Normal 80-100 [facility] Specialist Comment on above: Performed By: #### C BC, CMP #### [facility] [address], [place] [id number] Platelet mean volume (Bld) [Entitic vol] 11.60 fL Normal 7.50-12.50 [facility] Executive Assistant Comment on above: Performed By: #### C BC, CMP #### [facility] [address], [place] [id number] Platelets (Bld) [#/Vol] 273 10*3/uL Normal 140-400 [facility] Specialist Comment on above: Performed By: #### C GEORGINA, CMP #### [facility] [address], [place] [id number] RBC (Bld) [#/Vol] 6.01 10*6/uL High 3.90-5.20 [facility] Specialist Comment on above: Performed By: #### C GEORGINA, CMP #### [facility] [address], [place] [id number] RDW-SD 37.6 fL Normal 37.0-50.0 [facility] Specialist Comment on above: Performed By: #### C GEORGINA, CMP #### [facility] [address], [place] [id number] WBC (Bld) [#/Vol] 9.0 10*3/uL Normal 3.8-11.0 [facility] Executive Assistant Comment on above: Performed By: #### C BC, CMP #### [facility] [address], [place] [id number] Comprehensive Metabolic Pane [facility] 02-15-2022 Albumin [Mass/Vol] 3.9 g/dL Normal 3.6-5.1 [facility] Executive Assistant Comment on above: Performed By: #### C BC, CMP #### [facility] [address], [place] [id number] Albumin/Globulin [Mass ratio] 1.3 {ratio} Normal 1.0-2.5 [facility] Executive Assistant Comment on above: Performed By: #### C GEORGINA, CMP #### [facility] [address] [place], [place] [id number] ALP [Catalytic activity/Vol] 141 U/L High 35-119 [facility] Comment on above: Performed By: #### C BC, CMP #### [facility] [address] [place], [place] [id number] ALT [Catalytic activity/Vol] 11 U/L Normal 6-33 [facility] Comment on above: Result Comment: 08/23 Female reference range changed. Performed By: #### C BC, CMP #### [facility] [address] [place], [place] [id number] Anion gap [Moles/Vol] 19 mmol/L Normal 12-20 [facility] Comment on above: Result Comment: Effe ctive 09/28/2019 reference range changed. Performed By: #### C BC, CMP #### [facility] [address] [facility] [place] [id number] AST [Catalytic activity/Vol] 12 U/L Normal 9-34 [facility] Comment on above: Performed By: #### C BC, CMP #### [facility] [address] [facility] [address] [facility] [place] [id number] Bilirubin [Mass/Vol] 0.32 mg/dL Normal 0.30-1.20 [facility] Comment on above: Performed By: #### C BC, CMP #### [facility] [address] [place] [id number] BUN/CREA 23 Ratio High 6-22 [facility] Comment on above: Performed By: #### C BC, CMP #### [facility] [address] [place] [id number] Calcium [Mass/Vol] 9.9 mg/dL Normal 8.6-10.2 [facility] Comment on above: Performed By: #### C BC, CMP #### [facility] [address] [place], [place] [id number] Chloride [Moles/Vol] 95 mmol/L Low 98-107 [facility] Comment on above: Performed By: #### C BC, CMP #### [facility] [address] [place] [id number] CO2 [Moles/Vol] 21 mmol/L Normal 20-31 [facility] Specialist Comment on above: Performed By: #### C BC, CMP #### [facility] [address] [place], [place] [id number] Creatinine [Mass/Vol] 1.3 mg/dL Normal 0.6-1.4 [facility] Executive Assistant Comment on above: Performed By: #### C BC, CMP #### [facility] [address] [place], [place] [id number] eGFRAA 51 mL/min/1.73m2 Low >60 [facility] Specialist Comment on above: Performed By: #### C BC, CMP #### [facility] [address], [place] [id number] eGFRNAA 42 mL/min/1.73m2 Low >60 [facility] Specialist Comment on above: Performed By: #### C BC, CMP #### [facility] [address] [place], [place] [id number] Globulin (S) [Mass/Vol] 3.0 g/dL Normal 1.9-3.7 [facility] Executive Assistant Comment on above: Performed By: #### C BC, CMP #### [facility] [address] [place], [place] [id number] Glucose [Mass/Vol] 366 mg/dL High 65-99 [facility] Executive Assistant Comment on above: Result Comment: For FASTING Glucose --- ADA reference ranges: Normal 65-99 mg/dl Prediabetes 100-125 Diabetes >/= 126 Performed By: #### C BC, CMP #### [facility] [address], [place] [id number] Potassium [Moles/Vol] 4.7 mmol/L Normal 3.5-5.5 [facility] Executive Assistant Comment on above: Performed By: #### C BC, CMP #### [facility] [address] [place], [place] [id number] Protein [Mass/Vol] 6.9 g/dL Normal 6.1-8.1 [facility] Executive Assistant Comment on above: Performed By: #### C BC, CMP #### [facility] [address], [place] [id number] Sodium [Moles/Vol] 131 mmol/L Low 135-146 [facility] Executive Assistant Comment on above: Performed By: #### C BC, CMP #### [facility] [address] [place], [place] [id number] Urea nitrogen [Mass/Vol] 30 mg/dL High 7-25 [facility] Executive Assistant Comment on above: Performed By: #### C BC, CMP #### [facility] [address] [place], [place] [id number] CBC AUTO DIFFon 02-01-2022 BASO # 0.0 103/ul Normal 0.0-0.[address] [facility] Comment on above: Performed By: #### C BC ####[facility] [address] [place] [address]Dr. Antonella Medrano Basophils/100 WBC (Bld) 0.3 % Normal 0.2-2.[address] [facility] Comment on above: Performed By: #### C BC ####[facility] [address] [place] [address]Dr. Antonella Medrano EO # 0.2 103/ul Normal 0.0-0.[address] [facility] Comment on above: Performed By: #### C BC ####[facility] L[address]ijzwv[address] [place], [place] [address]Dr. Antonella Medrano Eosinophils/100 WBC (Bld) 1.9 % Normal 0.9-7.[address] [facility] Comment on above: Performed By: #### C BC ####[facility] [address] [place] [address]Dr. Antonella Medrano Erythrocyte distribution width (RBC) [Ratio] 12.6 % Normal 11.0-15.[address] [facility] Comment on above: Performed By: #### C BC ####[facility] Xgrfefksun[address] [place], [place] [address]Dr. Antonella Medrano Hematocrit (Bld) [Volume fraction] 49.6 % Critically high 36.0-48.0 [facility] Comment on above: Performed By: #### C BC ####[facility] [address] [place], [place] [address]Dr. Mariafilemon Medrano Hemoglobin (Bld) [Mass/Vol] 16.6 g/dL Critically high 12.0-16.[address] [facility] Comment on above: Performed By: #### C BC ####[facility] [address] [place] [address]Dr. Antonella Medrano IG # 0.04 10e3/ul Critically high 0.00-0.[address] [facility] Comment on above: Performed By: #### C BC ####[facility] [address] [place] [address]Dr. Mariafilemon Medrano IG % 0.4 % Normal 0.0-0.[address] [facility] Comment on above: Performed By: #### C BC ####[facility] [address]pax[address] [place] [address]Dr. Antonella Medrano LYMPH # 2.4 103/ul Normal 1.2-3.[address] [facility] Comment on above: Performed By: #### C BC ####[facility] [address] [place] [address]Dr. Antonella Medrano Lymphocytes/100 WBC (Bld) 25.9 % Normal 20.5-60.[address] [facility] Comment on above: Performed By: #### C BC ####[facility] [address] [place] [address]Dr. Mariafilemon Medrano MANUAL DIFF REQ NO Normal [facility] Comment on above: Performed By: #### C BC ####[facility] [address] [place] [address]Dr. Antonella Mitchell MCH (RBC) [Entitic mass] 28.7 pg Normal 26.7-34.[address] [facility] Comment on above: Performed By: #### C BC ####[facility] Evomrneadc[address] [place], [place] [address]DrGerman Mariafilemon Medrano MCHC (RBC) [Mass/Vol] 33.5 g/dL Normal 29.9-35.[address] [facility] Comment on above: Performed By: #### C BC ####[facility] Hodfdhdqyl[address] [place], [place] [address]Dr. Antonella Medrano MCV (RBC) [Entitic vol] 85.8 fL Normal 81.0-99.[address] [facility] Comment on above: Performed By: #### C BC ####[facility] [address]unbxvb[address] [place] [address]Dr. Antonella Medrano MONO # 0.7 103/ul Normal 0.3-0.[address] [facility] Comment on above: Performed By: #### C BC ####[facility] Vsqovsqsus[address] [place], [place] [address]Dr. Antonella Mitchell Monocytes/100 WBC (Bld) 7.9 % Normal 1.7-12.[address] [facility] Comment on above: Performed By: #### C BC ####[facility] Shdvqczwnu117[address] [place], [place] [address]Dr. Antonella Medrano NEUT # 5.8 103/ul Normal 1.4-6.[address] [facility] Comment on above: Performed By: #### C BC ####[facility] Jokmjfgirp[address] [place], [place] [address]Dr. Antonella Mitchell Neutrophils/100 WBC (Bld) 63.6 % Normal 43.0-75.[address] [facility] Comment on above: Performed By: #### C BC ####[facility] Zufhblujpa[address] [place], [place] [address]Dr. Antonella Mitchell Platelet mean volume (Bld) [Entitic vol] 12.3 fL Normal 9.5-13.[address] [facility] Comment on above: Performed By: #### C BC ####[facility] Gteeuxtbki94[address] [place], [place] [address]Dr. Antonella Mitchell PLT 212 103/ul Normal 150-[address] [facility] Comment on above: Performed By: #### C BC ####[facility] Nlwdpnjybk[address] [place], [place] [address]Dr. Mariafilemon Mitchell RBC 5.78 106/ul Critically high 4.20-5.[address] [facility] Comment on above: Performed By: #### C BC ####[facility] Gaxarhglad[address] [place], [place] [address]Dr. Antonella Mitchell WBC 9.1 103/ul Normal 4.0-11.0 [facility] Comment on above: Performed By: #### C BC ####[facility] Ytxcotkgta[address] [place], [place] [address]Dr. Antonella Medrano CULTURE URINEon 02-01-2022 CULTURE URINE Culture Observations : LIGHT GROWTH OF MIXED SKIN LUCY. NO POTENTIAL PATHOGENS SEEN. Normal [facility] Comment on above: Performed By: #### U RCX ####[facility] Gyrqykerfq[address] [place], [place] [address]Dr. Antonella Mitchell ER URINE PROFILEon Bilirubin Ql (U) Negative Normal NEGATIVE [facility] Comment on above: Performed By: #### HALEY CLARK ####[facility] Nqdeuswlip[address] [place], [place] [address]Dr. Antonella Medrano Clarity (U) CLEAR Normal CLEAR [facility] Comment on above: Performed By: #### HALEY CLARK ####[facility] Kbkfoanpqa024[address] [place], [place] [address]Dr. Antonella Mitchell Color (U) LT. YELLOW Normal YELLOW [facility] Comment on above: Performed By: #### HALEY CLARK ####[facility] Tzlvpbuqvg[address] [place], [place] [address]Dr. Antonella Medrano ERUAHD A micrscopic examina tion will be performed if indicated. Normal [facility] Comment on above: Performed By: #### HALEY CLARK ####[facility] Pqorpxorfm204[address] [place], [place] [address]Dr. Antonella Medrano Glucose Ql (U) 1000 mg/dl Abnormal NEGATIVE [facility] Comment on above: Performed By: #### HALEY CLARK ####[facility] Wblfctnvps[address] [place], [place] [address]Dr. Antonella Medrano Hemoglobin Ql (U) SMALL Abnormal NEGATIVE [facility] Comment on above: Performed By: #### HALEY CLARK ####[facility] Yigwrqptqf[address] [place], [place] [address]Dr. Antonella Medrano Ketones Ql (U) Negative Normal NEGATIVE [facility] Comment on above: Performed By: #### Daniela LEE UMICRO ####[facility] [address] [place] [address]Dr. Antonella Medrano LEUKOCYTES TRACE Abnormal NEGATIVE [facility] Comment on above: Performed By: #### Daniela LEE UMICRO ####[facility] [address]zmrlyeko[address] [place] [address]Dr. Antonella Medrano Nitrite Ql (U) Negative Normal NEGATIVE [facility] Comment on above: Performed By: #### Daniela LEE UMICRO ####[facility] T[address]opbjgrq[address] [place] [address]Dr. Antonella Medrano pH (U) 5.5 [pH] Normal 5-[address] [facility] Comment on above: Performed By: #### Daniela ELE UMICRO ####[facility] Uxxgdqcxuu7[address] [place], [place] [address]Dr. Antonella Medrano Protein (U) [Mass/Vol] 30 mg/dL Abnormal NEGAT LAZ/ TRACE [facility] Comment on above: Performed By: #### Daniela LEE UMICRO ####[facility] Otjmwxxrjq[address] [place], [place] [address]Dr. Antonella Medrano SPEC GRAVITY 1.015 Normal 1.005-<=1.[address] [facility] Comment on above: Performed By: #### Daniela ELE UMICRO ####[facility] Klvioqdbyj[address] [place], [place] [address]Dr. Antonella Medrano UR MICRO IND INDICATED Normal [facility] Comment on above: Performed By: #### Daniela LEE UMICRO ####[facility] Mpbjrryivj[address] [place], [place] [address]Dr. Antonella Medrano Urobilinogen Qn (U) 0.2 {Oleg'U}/dL Normal 0.2 - 1. [address] [facility] Comment on above: Performed By: #### Daniela LEE UMICRO ####[facility] Onzxiodrlm[address] [place], [place] [address]Dr. Antonella Medrano POINT OF CARE GLUCOSEon 05-1 Glucose [Mass/Vol] 285 mg/dL Critically high 74-106 [facility] Comment on above: Performed By: #### P OCGLUC ####[facility] [address]ehpehh[address] [place] [address]Dr. Mariafilemon Mitchell Glucose [Mass/Vol] 352 mg/dL Critically high 74-106 [facility] Comment on above: Performed By: #### P OCGLUC ####[facility] [address]xvibqaku98[address] [place] [address]Dr. Antonella Medrano Glucose [Mass/Vol] 503 mg/dL Critically high 74-106 [facility] Comment on above: Result Comment: Resu lt Not Confirmed Performed By: #### P OCGLUC ####[facility] [address] [place] [address]Dr. Antonella Medrano PROF 14(COMP METB)on 022 Albumin [Mass/Vol] 3.2 g/dL Critically low 3.4-5.0 [facility] Comment on above: Performed By: #### C MP ####[facility] [address]qsdtfr[address] [place] [address]Dr. Antonella Medrano Albumin/Globulin [Mass ratio] 0.7 {ratio} Normal [facility] Comment on above: Performed By: #### C MP ####[facility] [address]ttuqv[address] [place] [address]Dr. Antonella Medrano ALP [Catalytic activity/Vol] 128 U/L Critically high 46-116 [facility] Comment on above: Performed By: #### C MP ####[facility] Xszcraftko[address] [place] [address]Dr. Antonella Medrano ALT [Catalytic activity/Vol] 16 U/L Normal 14-59 [facility] Comment on above: Performed By: #### C MP ####[facility] [address]qqfjtn[address] [place] [address]Dr. Antonella Medrano Anion gap [Moles/Vol] 14.3 mmol/L Normal [facility] Comment on above: Performed By: #### C MP ####[facility] [address]uz[address] [place] [address]Dr. Antonella Medrano AST [Catalytic activity/Vol] 20 U/L Normal 15-[address] [facility] Comment on above: Performed By: #### C MP ####[facility] Gzljupllvx[address] [place], [place] [address]Dr. Antonella Medrano Bilirubin [Mass/Vol] 0.6 mg/dL Normal 0.2-1.[address] [facility] Comment on above: Performed By: #### C MP ####[facility] Xzfcreyxkh[address] [place], [place] [address]Dr. Antonella Medrano Calcium [Mass/Vol] 9.9 mg/dL Normal 8.5-10.[address] [facility] Comment on above: Performed By: #### C MP ####[facility] Uricgemlle[address] [place], [place] [address]Dr. Antonella Medrano Chloride [Moles/Vol] 94 mmol/L Critically low 98-[address] [facility] Comment on above: Performed By: #### C MP ####[facility] Tbscnrjdlo7[address] [place], [place] [address]Dr. Antonella Medrano CO2 [Moles/Vol] 25.7 mmol/L Normal 21.0-32.[address] [facility] Comment on above: Performed By: #### C MP ####[facility] Xcxrfdmyqv234[address] [place], [place] [address]Dr. Antonella Medrano Creatinine [Mass/Vol] 1.00 mg/dL Normal 0.55-1.[address] [facility] Comment on above: Performed By: #### C MP ####[facility] Jclqcgqvxe[address] [place], [place] [address]Dr. Antonella Mitchell EGFR-AF FAROESE >60 Normal >=[address] [facility] Comment on above: Performed By: #### C MP ####[facility] Uqqvkybneq[address] [place], [place] [address]Dr. Antonella Mitchell EGFR-NON AF FAROESE 56 mL/min/1.73m2 Critically low >=[address] [facility] Comment on above: Performed By: #### C MP ####[facility] Xwsvagqywe96[address] [place], [place] [address]Dr. Antonella Medrano Globulin (S) [Mass/Vol] 4.4 g/dL Normal [facility] Comment on above: Performed By: #### C MP ####[facility] Wckwijqwpc97[address] [place], [place] [address]Dr. Antonella Medrano Glucose [Mass/Vol] 452 mg/dL Critically high 74-106 [facility] Comment on above: Performed By: #### C MP ####[facility] Uiwwlgsvcd[address] [place], [place] [address]Dr. Antonella Mitchell Potassium [Moles/Vol] 5.0 mmol/L Normal 3.5-5.1 [facility] Comment on above: Performed By: #### C MP ####[facility] Qboekcjehx[address] [place], [place] [address]Dr. Antonella Mitchell Protein [Mass/Vol] 7.6 g/dL Normal 6.4-8.2 [facility] Comment on above: Performed By: #### C MP ####[facility] Tcoyyerzsj[address] [place], [place] [address]Dr. Antonella Medrano Sodium [Moles/Vol] 129 mmol/L Critically low 136-145 [facility] Comment on above: Performed By: #### C MP ####[facility] Yvlandytkn167[address] [place], [place] [address]Dr. Antonella Mitchell Urea nitrogen [Mass/Vol] 45.0 mg/dL Critically high 7.0-18.0 [facility] Comment on above: Performed By: #### C MP ####[facility] Vrndfyfyey[address] [place], [place] [address]Dr. Antonella Mitchell Urea nitrogen/Creatinine [Mass ratio] 45.0 mg/mg Normal [facility] Comment on above: Performed By: #### C MP ####[facility] Ocaceioeoz[address] [place], [place] [address]Dr. Antonella Mitchell URINE MICROSCOPIC ONLYon BACTERIA SMALL Abnormal NONE SEEN [facility] Comment on above: Performed By: #### E HALEY LEE ####[facility] Venslcsnys[address] [place], [place] [address]Dr. Antonella Medrano Bacteria identified Cx Nom (U) INDICATED Normal [facility] Comment on above: Performed By: #### Daniela LEE UMICRO ####[facility] [address]fr[address]cvze[address] [place] [address]Dr. Antonella Medrano CAST NONE SEEN Normal NONE SEEN [facility] Comment on above: Performed By: #### Daniela LEE UMICRO ####[facility] [address]orvpiwi[address] [place] [address]Dr. Antonella Medrano Crystals LM Nom (Urine sed) NONE SEEN Normal NONE SEEN [facility] Comment on above: Performed By: #### Daniela LEE UMICRO ####[facility] T[address]utocexj[address] [place] [address]Dr. Antonella Medrano Epithelial cells LM Ql (Urine sed) FEW Abnormal NONE SEEN /RARE [facility] Comment on above: Performed By: #### Daniela LEE UMICRO ####[facility] [address]jbuizgmp[address] [place] [address]Dr. Antonella Medrano MUCOUS NONE SEEN Normal NONE SEEN [facility] Comment on above: Performed By: #### Daniela LEE UMICRO ####[facility] [address]juofummkc25[address] [place] [address]Dr. Antonella Medrano RBC 2-5 Abnormal 0-[address] [facility] Comment on above: Performed By: #### Daniela LEE UMICRO ####[facility] [address]zmmopil[address] [place] [address]Dr. Antonella Medrano WBC 10-20 Abnormal NONE SEEN [facility] Comment on above: Performed By: #### Daniela LEE UMICRO ####[facility] [address]pcmyytlf24[address] [place] [address]Dr. Antonella Medrano Amylaseon 01-30-2022 ANGY 62 U/L Normal 28-100 [facility] Executive Assistant Comment on above: Performed By: #### A MY, LIP #### [facility] [address] [place], [place] [id number] Complete Blood Counton 01-30 Erythrocyte distribution width (RBC) [Ratio] 12.5 % Normal 11.0-15.0 [facility] Specialist Comment on above: Performed By: #### C BC, CMP #### [facility] [address] [place], [place] [id number] Hematocrit (Bld) [Volume fraction] 51.5 % High 35.0-47.0 [facility] Specialist Comment on above: Performed By: #### C BC, CMP #### [facility] [address] [place], [place] [id number] Hemoglobin (Bld) [Mass/Vol] 17.4 g/dL High 11.6-15.5 [facility] Specialist Comment on above: Performed By: #### C BC, CMP #### [facility] [address] [place], [place] [id number] MCH (RBC) [Entitic mass] 29.0 pg Normal 27.0-33.0 [facility] Specialist Comment on above: Performed By: #### C GEORGINA, CMP #### [facility] [address] [place], [place] [id number] MCHC (RBC) [Mass/Vol] 33.8 g/dL Normal 32.0-36.0 [facility] Comment on above: Performed By: #### C BC, CMP #### [facility] [address] [place], [place] [id number] MCV (RBC) [Entitic vol] 86 fL Normal 80-100 [facility] Specialist Comment on above: Performed By: #### C BC, CMP #### [facility] [address] [place], [place] [id number] Platelet mean volume (Bld) [Entitic vol] 12.50 fL Normal 7.50-12.50 [facility] Executive Assistant Comment on above: Performed By: #### C BC, CMP #### [facility] [address] [place], [place] [id number] Platelets (Bld) [#/Vol] 227 10*3/uL Normal 140-400 [facility] Executive Assistant Comment on above: Performed By: #### C BC, CMP #### [facility] [address] [place], [place] [id number] RBC (Bld) [#/Vol] 6.00 10*6/uL High 3.90-5.20 [facility] Executive Assistant Comment on above: Performed By: #### C BC, CMP #### [facility] [address] [place], [place] [id number] RDW-SD 39.0 fL Normal 37.0-50.0 [facility] Specialist Comment on above: Performed By: #### C BC, CMP #### [facility] [address] [place], [place] [id number] WBC (Bld) [#/Vol] 9.0 10*3/uL Normal 3.8-11.0 [facility] Executive Assistant Comment on above: Performed By: #### C BC, CMP #### [facility] [address] [place], [place] [id number] Comprehensive Metabolic Pane [facility] 01-30-2022 Albumin [Mass/Vol] 4.3 g/dL Normal 3.6-5.1 [facility] Executive Assistant Comment on above: Performed By: #### C BC, CMP #### [facility] [address] [place], [place] [id number] Albumin/Globulin [Mass ratio] 1.5 {ratio} Normal 1.0-2.5 [facility] Specialist Comment on above: Performed By: #### C BC, CMP #### [facility] [address] [place], [place] [id number] ALP [Catalytic activity/Vol] 148 U/L High 35-119 [facility] Specialist Comment on above: Performed By: #### C BC, CMP #### [facility] [address] [place], [place] [id number] ALT [Catalytic activity/Vol] 7 U/L Normal 6-33 [facility] Specialist Comment on above: Result Comment: 08/23 Female reference range changed. Performed By: #### C BC, CMP #### [facility] [address] [place], [place] [id number] Anion gap [Moles/Vol] 23 mmol/L High 12-20 [facility] Specialist Comment on above: Result Comment: Effe ctive 09/28/2019 reference range changed. Performed By: #### C BC, CMP #### [facility] [address] [place], [place] [id number] AST [Catalytic activity/Vol] 11 U/L Normal 9-34 [facility] Comment on above: Performed By: #### C BC, CMP #### [facility] [address] [facility] [place] [id number] Bilirubin [Mass/Vol] 0.36 mg/dL Normal 0.30-1.20 [facility] Comment on above: Performed By: #### C BC, CMP #### [facility] [address] [facility] [address] [place] [id number] BUN/CREA 40 Ratio High 6-22 [facility] Comment on above: Performed By: #### C BC, CMP #### [facility] [address] [place] [id number] Calcium [Mass/Vol] 10.0 mg/dL Normal 8.6-10.2 [facility] Comment on above: Performed By: #### C BC, CMP #### [facility] [address] [facility] [place] [id number] Chloride [Moles/Vol] 92 mmol/L Low 98-107 [facility] Comment on above: Performed By: #### C BC, CMP #### [facility] [address] [place] [id number] CO2 [Moles/Vol] 21 mmol/L Normal 20-31 [facility] Comment on above: Performed By: #### C BC, CMP #### [facility] [address] [facility] [place] [id number] Creatinine [Mass/Vol] 0.9 mg/dL Normal 0.6-1.4 [facility] Comment on above: Performed By: #### C BC, CMP #### [facility] [address] [place], [place] [id number] eGFRAA 73 mL/min/1.73m2 Normal >60 [facility] Comment on above: Performed By: #### C BC, CMP #### [facility] [address] [facility] [place] [id number] eGFRNAA 61 mL/min/1.73m2 Normal >60 [facility] Comment on above: Performed By: #### C BC, CMP #### [facility] [address] [facility] [place] [id number] Globulin (S) [Mass/Vol] 2.9 g/dL Normal 1.9-3.7 [facility] Specialist Comment on above: Performed By: #### C BC, CMP #### [facility] [address] [place], [place] [id number] Glucose [Mass/Vol] 531 mg/dL Critically high 65-99 [facility] Comment on above: Result Comment: Crit ical result called to Abby Green at 01/30/2022 2:03 PM by Nicci Dailey (GLU) For FASTING Glucose --- ADA reference ranges: Normal 65-99 mg/dl Prediabetes 100-125 Diabetes >/= 126 Performed By: #### C BC, CMP #### [facility] [address] [place], [place] [id number] Potassium [Moles/Vol] 5.6 mmol/L High 3.5-5.5 [facility] Comment on above: Result Comment: Spec imen is hemolyzed. Results may be affected. Performed By: #### C BC, CMP #### [facility] [address] [place], [place] [id number] Protein [Mass/Vol] 7.2 g/dL Normal 6.1-8.1 [facility] Specialist Comment on above: Performed By: #### C BC, CMP #### [facility] [address] [place], [place] [id number] Sodium [Moles/Vol] 130 mmol/L Low 135-146 [facility] Executive Assistant Comment on above: Performed By: #### C BC, CMP #### [facility] [address] [place], [place] [id number] Urea nitrogen [Mass/Vol] 37 mg/dL High 7-25 [facility] Specialist Comment on above: Performed By: #### C BC, CMP #### [facility] [address] [place], [place] [id number] Hemoglobin A1Con 01-30-2022 EAG 274.74 Normal [facility] Specialist Comment on above: Performed By: #### A 1C #### [facility] [address] [place], [place] [id number] HbA1c (Bld) [Mass fraction] 11.2 % High 4.0-6.0 [facility] Executive Assistant Comment on above: Performed By: #### A 1C #### [facility] [address] [place], [place] [id number] Lipaseon 01-30-2022 LIP2 147 IU/L High 13-60 [facility] Executive Assistant Comment on above: Performed By: #### A MY, LIP #### [facility] [address] [place], [place] [id number] Q - URINALYSIS,COMPLETEon Appearance (U) CLOUDY Abnormal CLEAR [facility] Executive Assistant Comment on above: Order Comment: [facility] performed at: [employer] [facility], [address] [place] [address], [address] [place] [address], [address] [place] [address], Call Center Analyst: Aung Boateng MD [facility] Date/Time: [facility] Results Received Date/Time: [facility] Reported Date/Time: Performed By: #### 3 4F #### [facility] Default [address] [place] [address] BACTERIA NONE SEEN Normal NONE SEEN [facility] Executive Assistant Comment on above: Order Comment: [facility] performed at: [employer] [facility], [address] [facility], [address] [place] [address], [address] [place] [address], Call Center Analyst: Aung Boateng MD [facility] Date/Time: [facility] Results Received Date/Time: [facility] Reported Date/Time: Performed By: #### 3 4F #### [facility] Default [address] [place] [address] Bilirubin Ql (U) Negative Normal NEGATIVE [facility] Executive Assistant Comment on above: Order Comment: [facility] performed at: [employer] [facility], [address] [facility], [address] [place] [address], [address] [place] [address], Call Center Analyst: Aung Boateng MD [facility] Date/Time: [facility] Results Received Date/Time: [facility] Reported Date/Time: Performed By: #### 3 4F #### [facility] [address] [place] [address] Color (U) YELLOW Normal YELLOW [facility] Executive Assistant Comment on above: Order Comment: [facility] performed at: [facility], [employer] [facility], [address] , [address] [place] [address], [address] [place] [address], Call Center Analyst: Aung Boateng MD [facility] Date/Time: [facility] Results Received Date/Time: [facility] Reported Date/Time: Performed By: #### 3 4F #### [facility] [address] [place] [address] Glucose Ql (U) 3+ Abnormal NEGATIVE [facility] Specialist Comment on above: Order Comment: [facility] performed at: [facility], [employer] [facility], [address], [address] [place] [address], [address] [place] [address], Call Center Analyst: Aung Boateng MD [facility] Date/Time: [facility] Results Received Date/Time: [facility] Reported Date/Time: Performed By: #### 3 4F #### [facility] [address] [place] [address] HYALINE CAST NONE SEEN Normal NONE SEEN [facility] Executive Assistant Comment on above: Order Comment: [facility] performed at: [facility], [employer] [facility], [address] , [address] [place] [address], [address] [place] [address], Call Center Analyst: Aung Boateng MD [facility] Date/Time: [facility] Results Received Date/Time: [facility] Reported Date/Time: Performed By: #### 3 4F #### [facility] [address] [place] [address] Ketones Ql (U) TRACE Abnormal NEGATIVE [facility] Executive Assistant Comment on above: Order Comment: [facility] performed at: [facility], [employer] [facility], [address] , [address] [place] [address], [address] [place] [address], Call Center Analyst: Aung Boateng MD [facility] Date/Time: [facility] Results Received Date/Time: [facility] Reported Date/Time: Performed By: #### 3 4F #### [facility] [address] [place] [address] Leukocyte esterase Test strip Ql (U) 1+ Abnormal NEGATIVE [facility] Specialist Comment on above: Order Comment: [facility] performed at: [employer] [facility], [address] [facility], [address] [place] [address], [phone], Call Center Analyst: Aung Boateng MD [facility] Date/Time: [facility] Results Received Date/Time: [facility] Reported Date/Time: Performed By: #### 3 4F #### [facility] [address] [place] [address] Nitrite Ql (U) Negative Normal NEGATIVE [facility] Specialist Comment on above: Order Comment: [facility] performed at: [employer] [facility], [address] , [address] [place] [address], [phone], Call Center Analyst: Aung Boateng MD [facility] Date/Time: [facility] Results Received Date/Time: [facility] Reported Date/Time: Performed By: #### 3 4F #### [facility] [address] [place] [address] OCCULT BLOOD 1+ Abnormal NEGATIVE [facility] Specialist Comment on above: Order Comment: [facility] performed at: [employer] [facility], [address] , [address] [place] [address], [phone], Call Center Analyst: Aung Boateng MD [facility] Date/Time: [facility] Results Received Date/Time: [facility] Reported Date/Time: Performed By: #### 3 4F #### [facility] [address] [place] [address] pH (U) 5.5 [pH] Normal 5.0-8.0 [facility] Executive Assistant Comment on above: Order Comment: [facility] performed at: [facility], [employer] [facility], [address] [place] [address], [address] [place] [address], [address] [place] [address], Call Center Analyst: Aung Boateng MD [facility] Date/Time: [facility] Results Received Date/Time: [facility] Reported Date/Time: Performed By: #### 3 4F #### [facility] [address] [place] [address] Protein Ql (U) 2+ Abnormal NEGATIVE [facility] Executive Assistant Comment on above: Order Comment: [facility] performed at: [employer] [facility], [address] [place] [address], [address] [place] [address], [address] [place] [address], Call Center Analyst: Aung Boateng MD [facility] Date/Time: [facility] Results Received Date/Time: [facility] Reported Date/Time: Performed By: #### 3 4F #### [facility] [address] [place] [address] RBC 0-2 Normal < OR = 2 [facility] Executive Assistant Comment on above: Order Comment: [facility] performed at: [employer] [facility], [address] [place] [address], [address] [place] [address], [address] [place] [address], Call Center Analyst: Aung Boateng MD [facility] Date/Time: [facility] Results Received Date/Time: [facility] Reported Date/Time: Performed By: #### 3 4F #### [facility] [address] [place] [address] Specific gravity (U) [Rel density] 1.033 Normal 1.001-1.035 [facility] Executive Assistant Comment on above: Order Comment: [facility] performed at: [employer] [facility], [address] [place] [address], [address] [place] [address], [address] [place] [address], Call Center Analyst: Aung Boateng MD [facility] Date/Time: [facility] Results Received Date/Time: [facility] Reported Date/Time: Performed By: #### 3 4F #### [facility] [address] [place] [address] SQUAMOUS EPITHELIAL CELLS NONE SEEN Normal < OR = 5 [facility] Executive Assistant Comment on above: Order Comment: [facility] performed at: [employer], [employer] [facility], [address] , [address] [place] [address], [address] [place] [address], Call Center Analyst: Aung Boateng MD [facility] Date/Time: [facility] Results Received Date/Time: [facility] Reported Date/Time: Performed By: #### 3 4F #### [facility] [address] [place] [address] TRANSITIONAL EPITHELIAL CELLS 0-5 Normal < OR = 5 [facility] Executive Assistant Comment on above: Order Comment: [facility] performed at: [facility], [employer] [facility], [address] , [address] [place] [address], [address] [place] [address], Call Center Analyst: Aung Boateng MD [facility] Date/Time: [facility] Results Received Date/Time: [facility] Reported Date/Time: Performed By: #### 3 4F #### [facility] Default [address] [place] [address] WBC 10-20 Abnormal < OR = 5 [facility] Executive Assistant Comment on above: Order Comment: [facility] performed at: [facility], [employer] [facility], [address] , [address] [place] [address], [address] [place] [address], Call Center Analyst: Aung Boateng MD [facility] Date/Time: [facility] Results Received Date/Time: [facility] Reported Date/Time: Performed By: #### 3 4F #### [facility] [address] [place] [address] YEAST MANY Abnormal NONE SEEN [facility] Executive Assistant Comment on above: Order Comment: [facility] performed at: [facility], [employer] [facility], [address], [address] [place] [address], [phone], Call Center Analyst: Aung Boateng MD [facility] Date/Time: [id number] [facility] Received Date/Time: [id number] [facility] Reported Date/Time: [id number] Performed By: #### 3 4F #### [facility] Default [address] [place] [address] CONSULTATIONon 04-09-2017 CONSULTATION [facility] ATIENT NAME: KIARA BLANC : 57[facility] REC NO: [id number] ROOM: [id number] NO: [id number] ADMISSION DATE: 03/25/17PHYSICIAN: KAREN ROQUEHISTORY: The patient is an elderly female who slipped and fell lastevening. She was brought to the emergency room. X-ray showed thatshe had intertrochanteric fractures of the right hip. The patientfound to be tender over the trochanteric area. She does not have anysignificant pain with axial loading of her right leg. The right legis sitting in good position. Legs were of equal length. Pedal pulsesare present. X-rays were reviewed. The patient has the fracture ofthe tip of the great trochanter. This was verified by CT scan. Noevidence of propagation fracture through the neck or into the calcarwas noted.IMPRESSION: Isolated fracture of the tip of right trochanter. Planswere discussed with the patient and with Dr. Laurent. I haverecommended keeping the patient up on a walker. Partial weightbearingin the right hip and advance as tolerated. The patient will bedischarged home to be seen in the office in two weeks.KAREN ROQUED:04/09/2017 21:50:05 [id number]#: [id number] Doc#: [id number] [facility] Discharge Summaryon 03-27-20 17 HIM IP Note OR [facility] HIM IP Note OR [facility] Discharge Summaryon 03-26-20 17 HIM IP Note OR [facility] History and Physicalon 03-26 HIM IP Note OR [facility] APTTon 03-25-2017 aPTT 22.4 s Low 23.2-34.4 [facility] Comment on above: Result Comment: Perf ormed at [address] [place], [place] [address] Performed By: #### P T, PTT ####[address] , [place] [address] CBC with Diffon 03-25-2017 Abs. Bands 0.10 k/uL Normal 0.0-1.0 [facility] Comment on above: Performed By: #### C P, CDP ####[address] , [place] [address] Abs. Basophil 0.00 k/uL Normal 0.0-0.2 [facility] Comment on above: Performed By: #### C P, CDP ####[address] , [place] [address] Abs.Neutrophil (Seg) 7.66 k/uL Normal 1.8-7.7 [facility] Comment on above: Performed By: #### C P, CDP ####[address] [place] [address] Bands 1 % Normal [facility] Comment on above: Performed By: #### C P, CDP ####[address] [place] [address] Basophils/100 WBC Auto (Bld) 0 % Normal [facility] Comment on above: Performed By: #### C P, CDP ####[address] [place] [address] Blood morphology Normal Normal [facility] Comment on above: Result Comment: Perf ormed at [address] [place], [place] [address] Performed By: #### C P, CDP ####[address] [place] [address] Eosinophils 0.10 10*3/uL Normal 0.0-0.4 [facility] Comment on above: Performed By: #### C P, CDP ####[address] [place] [address] Eosinophils/100 leukocytes 1 % Normal [facility] Comment on above: Performed By: #### C P, CDP ####[address] [place] [address] Lymphocytes 1.16 10*3/uL Normal 1.0-4.8 [facility] Comment on above: Performed By: #### C P, CDP ####[address] [place] [address] Lymphocytes/100 leukocytes 12 % Normal [facility] Comment on above: Performed By: #### C P, CDP ####[address] [place] [address] Monocytes 0.68 10*3/uL Normal 0.0-1.0 [facility] Comment on above: Performed By: #### C P, CDP ####[address] [place] [address] Monocytes/100 leukocytes 7 % Normal [facility] Comment on above: Performed By: #### C P, CDP ####[address] [place] [address] Neutrophil (Seg) 79 % Normal [facility] Comment on above: Performed By: #### C P, CDP ####[address] [place] [address] Erythrocyte distribution width Auto Ratio (RBC) 12.8 % Normal 12.1-15.2 [facility] Comment on above: Performed By: #### C P, CDP ####[address] [place] [address] Erythrocytes (RBC) 4.45 10*6/uL Normal 4.0-5.2 [facility] Comment on above: Performed By: #### C P, CDP ####[address] [place] [address] Hematocrit (HCT) 38.7 % Normal 36-46 [facility] Comment on above: Performed By: #### C P, CDP ####[address] [place] [address] Hemoglobin mass conc (Bld) 13.0 g/dL Normal 12.0-16.0 [facility] Comment on above: Performed By: #### C P, CDP ####[address] [place] [address] MCH 29.2 pg Normal 26-34 [facility] Comment on above: Performed By: #### C P, CDP ####[address] [place] [address] MCHC mass conc (RBC) 33.6 g/dL Normal 31-37 [facility] Comment on above: Performed By: #### C P, CDP ####[address] [place] [address] MCV 86.8 fL Normal 80-100 [facility] Comment on above: Performed By: #### C P, CDP ####[address] [place] [address] Platelets 239 10*3/uL Normal 140-450 [facility] Comment on above: Performed By: #### C P, CDP ####[address] [place] [address] WBC (Leukocytes) 9.7 10*3/uL Normal 3.5-11.0 [facility] Comment on above: Performed By: #### C P, CDP ####[address] , [facility]83 Auto Diff Performed NOT REPORTED Normal [facility] Comment on above: Performed By: #### C P, CDP ####[address] [place] [address] Erythrocyte morphology NOT REPORTED Normal [facility] Comment on above: Performed By: #### C P, CDP ####[address] [place] [address] Platelet mean volume (PMV) NOT REPORTED Normal 6.0-12.0 [facility] Comment on above: Performed By: #### C P, CDP ####[address] [place] [address] Platelets NOT REPORTED Normal [facility] Comment on above: Performed By: #### C P, CDP ####[address] [place] [address] WBC Morphology NOT REPORTED Normal [facility] Comment on above: Performed By: #### C P, CDP ####[address] [place] [address] Comp Metabolic Profon 2016 (cont.) Normal [facility] Comment on above: Result Comment: Aver age GFR for 60-69 years old: 85 mL/min/1.73sq mChronic Kidney Disease: <60 mL/min/1.73sq mKidney failure: <15 mL/min/1.73sq meGFR calculated using average adult body mass. Additional eGFR calculator available at:[email or web address] Performed By: #### C P, CDP ####[address] [place] [address] Alanine aminotransferase (ALT) 14 U/L Normal 5-33 [facility] Comment on above: Performed By: #### C P, CDP ####[address] [place] [address] Albumin 3.4 g/dL Low 3.5-5.2 [facility] Comment on above: Performed By: #### C P, CDP ####[address] [place] [address] Albumin/Globulin Ratio 1.2 {ratio} Normal 1.0-2.5 M [facility] Comment on above: Performed By: #### C P, CDP ####[address] [place] [address] Alkaline Phos 102 U/L Normal 35-104 [facility] Comment on above: Performed By: #### C P, CDP ####[address] [place] [address] Anion gap 13 mmol/L Normal 9-17 [facility] Comment on above: Performed By: #### C P, CDP ####[address] [place] [address] Aspartate aminotransferase (AST) 14 U/L Normal <32 [facility] Comment on above: Performed By: #### C P, CDP ####[address] [place] [address] Bilirubin Ql (U) 0.15 mg/dL Low 0.3-1.2 [facility] Comment on above: Performed By: #### C P, CDP ####[address] [place] [address] BUN/CRE Ratio 34 High 9-20 [facility] Comment on above: Performed By: #### C P, CDP ####[address] [place] [address] Calcium 8.3 mg/dL Low 8.6-10.4 [facility] Comment on above: Performed By: #### C P, CDP ####[address] [place] [address] Chloride 108 mmol/L High 98-107 [facility] Comment on above: Performed By: #### C P, CDP ####[address] [place] [address] CO2 18 mmol/L Low 20-31 [facility] Comment on above: Performed By: #### C P, CDP ####[address] [place] [address] Creatinine 0.64 mg/dL Normal 0.50-0.90 [facility] Comment on above: Performed By: #### C P, CDP ####[address] [place] [address] eGFR (non-black) mL/min/{1.73_m2} Normal >60 [facility] Comment on above: Performed By: #### C P, CDP ####[address] [place] [address] Glucose mass conc 368 mg/dL High 70-99 [facility] Comment on above: Performed By: #### C P, CDP ####[address] [place] [address] Potassium molar conc 4.7 mmol/L Normal 3.7-5.3 [facility] Comment on above: Performed By: #### C P, CDP ####[address] [place] [address] Protein 6.3 g/dL Low 6.4-8.3 [facility] Comment on above: Performed By: #### C P, CDP ####[address] [place] [address] Sodium 139 mmol/L Normal 135-144 [facility] Comment on above: Performed By: #### C P, CDP ####[address] [place] [address] Staging: Normal [facility] Comment on above: Result Comment: Stag e 1: Some kidney damage normal GFRStage 2: Mild kidney damage GFR 60-89Stage 3: Moderate kidney damage GFR 30-59Stage 4: Severe kidney damage GFR 15-29Stage 5: Severe kidney damage GFR <15ESRD - chronic treatment by dialysis or transplantPerformed at [address] [place] [address] Performed By: #### C P, CDP ####[address] [place] [address] Urea nitrogen 22 mg/dL Normal 8-23 [facility] Comment on above: Performed By: #### C P, CDP ####[address] [place] [address] Hemoglobin A1Con 03-25-2017 Glucose mass conc 220 mg/dL Normal [facility] Comment on above: Result Comment: The ADA and AACC recommend providing the estimated average glucose result to permit better patient understanding of their HBA1c result.Performed at [address] [place] [address] Performed By: #### G LYHGB ####[address] [place] [address] Hemoglobin A1c/Hemoglobin.total mass fraction (Bld) 9.3 % High 4.8-5.9 [facility] Comment on above: Performed By: #### G LYHGB ####[address] [place] [address] PTon 03-25-2017 INR Coag RelTime (PPP) 0.9 {INR} Normal 0.9-1.2 [facility] Comment on above: Result Comment: Perf ormed at [address] [place] [address] Performed By: #### P T, PTT ####[address] [place] [address] Prothrombin time (PT) Coag time (PPP) 9.7 s Normal 9.7-12.2 [facility] Comment on above: Performed By: #### P T, PTT ####[address] , [place] [id number] Type + Screenon 03-25-2017 Type + Screen Sample Expiration 03/28/2017 Arm Band Number [id number] ABO/Rh(D) O POSITIVE Antibody Screen NEGATIVEPerformed at [address] [place] [address] Normal [facility] Comment on above: Performed By: #### T YS ####[address] [place] [address] XR CHEST PORTABLEon 03-25-20 17 XR CHEST PORTABLE FINAL REPORTEXAM: XR CHEST PORTABLEHISTORY: preoperative; RT HIP FX TECHNIQUE: AP portable erect chest PRIORS: None.FINDINGS: The heart and vascularity are normal. Both lungs are well-expanded and there are no pulmonary infiltrates.The osseous structures are maintained. IMPRESSION: Impression: No acute cardiopulmonary disease. Interpreted by:MAISHA Lassiterigned by:Peter Escobar MD03/25/17Final result Normal [facility] XR HIP 2-3 VW W PELVIS RIGHT on 03-25-2017 XR HIP 2-3 VW W PELVIS RIGHT FINAL REPORTEXAM: XR HIP 2-3 VW W PELVIS RIGHTHISTORY: pain/trauma TECHNIQUE: Four views of the pelvis and right hip PRIORS: None.FINDINGS: There is intertrochanteric fracture of the right femur with minimal displacement of the fracture fragments no pelvic fractures are seen. Left proximal femur appears intact. The hip joint spaces are maintained.. The soft tissues appear normal. IMPRESSION: Impression: Acute intertrochanteric right femoral fracture with minimal displacement. Interpreted by:MAISHA Lassiterigned by:Peter Escobar MD03/25/17Final result Normal [facility] XR KNEE RIGHT STANDARDon XR KNEE RIGHT STANDARD FINAL REPORTEXAM: XR KNEE RIGHT STANDARDHISTORY: trauma/pain TECHNIQUE: Three views of the right knee PRIORS: None.FINDINGS: There has been lateral compartment hemiarthroplasty. Medial compartment joint space is maintained. 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 The soft tissues appear normal. There is no evidence of an effusion. IMPRESSION: Impression: Lateral compartment hemiarthroplasty. Arthritic change seen at the patellofemoral joint. No acute findings. Interpreted by:MAISHA Lassiterigned by:Peter Escobar MD03/25/17Final result Normal [facility] Vital Signs Date Time Vital Sign Value Performing Clinician Faci lity 07-18-2023 14:41-0400 Body height 165.1 cm Sonya Posada CNP Work Phone: [facility] Work Phone: 07-18-2023 14:41-0400 Body mass index (BMI) [Ratio] 31.5 kg/m2 Sonya Posada CNP Work Phone: [facility] Work Phone: 07-18-2023 14:41-0400 Body surface area Derived from formula 1.9 m2 Sonya Posada CNP Work Phone: [facility] Work Phone: 07-18-2023 14:41-0400 Body temperature 97.9 [degF] Sonya Posada CNP Work Phone: [facility] Work Phone: 07-18-2023 14:41-0400 Body weight 85.73 kg Sonya Posada CNP Work Phone: [facility] Work Phone: 07-18-2023 14:41-0400 Diastolic blood pressure 60 mm[Hg] Sonya Posada CNP Work Phone: [facility] Work Phone: 07-18-2023 14:41-0400 Heart rate 106 /min Sonya Posada CNP Work Phone: [facility] Work Phone: 07-18-2023 14:41-0400 Respiratory rate 16 /min Sonya Posada PERSONAL DEVELOPMENT EDUCATOR Work Phone: [facility] Work Phone: 07-18-2023 14:41-0400 SaO2% (BldA) [Mass fraction] 92 % Sonya Srer PERSONAL DEVELOPMENT EDUCATOR Work Phone: [facility] Work Phone: 07-18-2023 14:41-0400 Systolic blood pressure 108 mm[Hg] Sonya Srer PERSONAL DEVELOPMENT EDUCATOR Work Phone: [facility] Work Phone: 03-11-2023 13:35-0400 Body temperature 97.11 [degF] Sonya Carlo GENERAL MANAGER IN TRAINING - PIECE PRESSER Work Phone: [employer] 03-11-2023 13:35-0400 Diastolic blood pressure 60 mm[Hg] Sonya Carlo GENERAL MANAGER IN TRAINING - PIECE PRESSER Work Phone: [employer] 03-11-2023 13:35-0400 Heart rate 92 /min Sonya Carlo GENERAL MANAGER IN TRAINING - PIECE PRESSER Work Phone: [employer] 03-11-2023 13:35-0400 Respiratory rate 18 /min Sonya Carlo GENERAL MANAGER IN TRAINING - PIECE PRESSER Work Phone: [employer] 03-11-2023 13:35-0400 SaO2% (BldA) [Mass fraction] 98 % Sonya Carlo GENERAL MANAGER IN TRAINING - PIECE PRESSER Work Phone: [employer] 03-11-2023 13:35-0400 Systolic blood pressure 106 mm[Hg] Sonya Carlo GENERAL MANAGER IN TRAINING - PIECE PRESSER Work Phone: [employer] 03-07-2023 15:37-0400 Body height 165.1 cm Sonya Srer PERSONAL DEVELOPMENT EDUCATOR Work Phone: [facility] Work Phone: 03-07-2023 15:37-0400 Body mass index (BMI) [Ratio] 33.4 kg/m2 Sonya Posada CNP Work Phone: [facility] Work Phone: 03-07-2023 15:37-0400 Body surface area Derived from formula 2 m2 Sonya Posada CNP Work Phone: [facility] Work Phone: 03-07-2023 15:37-0400 Body temperature 98.5 [degF] Sonya Posada CNP Work Phone: [facility] Work Phone: 03-07-2023 15:37-0400 Body weight 91.17 kg Sonya Posada CNP Work Phone: [facility] Work Phone: 03-07-2023 15:37-0400 Diastolic blood pressure 55 mm[Hg] Sonya Posada CNP Work Phone: [facility] Work Phone: 03-07-2023 15:37-0400 Heart rate 64 /min Sonya Posada CNP Work Phone: [facility] Work Phone: 03-07-2023 15:37-0400 SaO2% (BldA) [Mass fraction] 96 % Sonya Posada CNP Work Phone: [facility] Work Phone: 03-07-2023 15:37-0400 Systolic blood pressure 115 mm[Hg] Sonya Posada CNP Work Phone: [facility] Work Phone: Encounters Encounter Date Encounter Type Care Provider Facility Start: 06-12-2023 End: 06-12-2023 ambulatory EHAB [facility] Start: 05-14-2023 End: 05-14-2023 ambulatory Angy N Amanda Facility:[facility] Start: 05-14-2023 End: 05-14-2023 ambulatory BRAKE [employer] Angy Patel Work Phone: [facility] Work Phone: Start: 05-14-2023 End: 05-14-2023 Departed Referred [employer]PA[employer] Angy Patel Work Phone: [facility] [place] Work Phone: Start: 05-04-2023 Evaluation and management of inpatient YRIS [facility] Start: 05-01-2023 Evaluation and management of inpatient YRIS [facility] Start: 04-26-2023 End: 05-06-2023 Evaluation and management of inpatient CHANDNI GREEN [facility] Start: 03-11-2023 End: 03-11-2023 Emergency department patient visit Sonya Posada APRN - PIECE PRESSER Work Phone: [facility] ED Comment on above: Acute cystitis witho ut hematuria (Primary Dx) Start: 03-07-2023 End: 03-07-2023 [facility]QHC visit, estab pt Sobia MALDONADO Work Phone: [facility] Work Phone: Start: 03-07-2023 End: 03-07-2023 [facility]QHC visit new patient Sonya Posada PERSONAL DEVELOPMENT EDUCATOR Work Phone: [facility] Work Phone: Start: 03-07-2023 End: 07-18-2023 FQHC visit, estab pt Soco Alcantar CNP Work Phone: [facility] Work Phone: Start: 03-07-2023 End: 03-08-2023 ambulatory SONYA POSADA [facility] Start: 01-22-2023 ambulatory Sonya Posada CNP [facility] Start: 01-10-2023 End: 01-10-[address] MITZY HURD Facility:[facility] Start: 01-06-2023 End: 01-06-2023 ambulatory YAZAN FABIAN Facility:[facility] Start: 01-01-2023 End: 01-02-[address] IGGY FRASER Facility:[facility] Start: 11-08-2022 End: 11-13-2022 ambulatory YAMILKA DONAHUE . Facility:[facility] Start: 08-23-2022 End: 08-23-[address] ALFRED Porter Facility:[facility] Start: 07-31-2022 End: 07-31-2022 ambulatory REINALDO MARLOW Facility:[facility] Start: 07-18-2022 End: 07-19-2022 ambulatory ALFRED SAHU Facility:[facility] Start: 05-25-[address] PETER SANTOS Facilit y:[facility] Start: 05-13-2022 End: 05-14-[address] PETER SANTOS Facility:[facility] Start: 03-16-2022 End: 03-25-2022 Evaluation and management of inpatient YRIS QUAN Facility:[facility] [place] Start: 03-16-2022 End: 03-16-[address] PETER SANTOS Facility:[facility] Start: 02-23-2022 ambulatory ALFRED SAHU Facility:[facility] Start: 02-16-2022 End: 02-17-[address] PETER SANTOS Facility:[facility] Start: 02-01-2022 End: 02-01-[address] PETER SANTOS Facility:[facility] Start: 07-07-2019 End: 07-07-2019 Patient encounter procedure Peter Santos -CT Scan [facility] Start: 03-25-2017 End: 03-27-2017 Evaluation and management of inpatient [facility] Procedures Date Procedure Procedure Detail Performing Clinician Start: 07-18-2023 Current tobacco smoker Soco Alcantar PERSONAL DEVELOPMENT EDUCATOR Work Phone: Start: 07-18-2023 Eye img valid match dx 7 stnd fld w/evc rtnopthy Soco Alcantar PERSONAL DEVELOPMENT EDUCATOR Work Phone: Start: 07-18-2023 Foot examination performed Soco Alcantar CNP Work Phone: Start: 07-18-2023 Hemoglobin glycosylated a1c Soco Alcantar PERSONAL DEVELOPMENT EDUCATOR Work Phone: Start: 07-18-2023 Most recent diastoli c blood pressure < 80 mm hg Soco Alcantar PERSONAL DEVELOPMENT EDUCATOR Work Phone: Start: 07-18-2023 Most recent hg a1c>e qual to 8.0%& Soco Alcantar PERSONAL DEVELOPMENT EDUCATOR Work Phone: Start: 07-18-2023 Most recent systolic blood pressure <130 mm hg Soco Alcantar PERSONAL DEVELOPMENT EDUCATOR Work Phone: Start: 07-18-2023 Pt scrnd tobacco use rcvd tobacco cessation talk Soco Alcantar PERSONAL DEVELOPMENT EDUCATOR Work Phone: Start: 07-18-2023 Remote imaging mgt r etinal disease w/i&r uni/b Soco Alcantar PERSONAL DEVELOPMENT EDUCATOR Work Phone: Start: 03-11-2023 Basic metabolic pane l calcium total Codi [facility] Work Phone: Start: 03-11-2023 Urinalysis microscopic only Codi [facility] Work Phone: Start: 03-11-2023 Urnls dip stick/tabl et rgnt auto w/o microscopy [facility] Work Phone: Start: 03-07-2023 Creatinine other source Sonya Posada CNP Work Phone: Start: 03-07-2023 Current tobacco smoker Sonya Posada CNP Work Phone: Start: 03-07-2023 Drug test prsmv read direct optical obs pr date Sonya Posada CNP Work Phone: Start: 03-07-2023 Hysterectomy Sonya gee PERSONAL DEVELOPMENT EDUCATOR Work Phone: Start: 03-07-2023 Knee Replacement Left C sho Carlo PERSONAL DEVELOPMENT EDUCATOR Work Phone: Start: 03-07-2023 Knee Replacement Right Sonya Posada PERSONAL DEVELOPMENT EDUCATOR Work Phone: Start: 03-07-2023 Psychotherapy w/lasha ent 30 minutes Sobia Short LISWS Work Phone: Start: 03-07-2023 Pt scrnd tobacco use rcvd tobacco cessation talk Sonya Posada PERSONAL DEVELOPMENT EDUCATOR Work Phone: Start: 03-07-2023 Surgical procedure Hayley Posada PERSONAL DEVELOPMENT EDUCATOR Work Phone: Start: 03-07-2023 Urine albumin quantitative Sonya Posada PERSONAL DEVELOPMENT EDUCATOR Work Phone: Start: 03-07-2023 Urnls dip stick/tabl et rgnt non-auto w/o micrscp Sonya Posada PERSONAL DEVELOPMENT EDUCATOR Work Phone: Start: 07-07-2019 CT chest wo con Peter Santos Start: 03-27-2017 DISCHARGE PATIENT CAMERON LAURENT Start: 03-27-2017 POCT GLUCOSE CAMERON FELT ON Start: 03-27-2017 GLUCOSE, WHOLE BLOOD JA KANA ALFREDON Start: 03-27-2017 POCT GLUCOSE CAMERON FELT ON Start: 03-27-2017 GLUCOSE, WHOLE BLOOD JA MES MEHRAN Start: 03-27-2017 POCT GLUCOSE CAMERON FELT ON Start: 03-27-2017 INTAKE AND OUTPUT CAMERON LAURENT Start: 03-26-2017 GLUCOSE, WHOLE BLOOD JA KANA ALFREDON Start: 03-26-2017 POCT GLUCOSE CAMERON FELT ON Start: 03-26-2017 GLUCOSE, WHOLE BLOOD JA MES MEHRAN Start: 03-26-2017 POCT GLUCOSE CAMERON FELT ON Start: 03-26-2017 POCT GLUCOSE CAMERON FELT ON Start: 03-26-2017 DIET CARB CONTROL CAMERON LAURENT Start: 03-26-2017 GLUCOSE, WHOLE BLOOD JA KANA MEHRAN Start: 03-26-2017 POCT GLUCOSE CAMERON FELT ON Start: 03-26-2017 DAILY WEIGHTS CAMERON JI Start: 03-26-2017 INTAKE AND OUTPUT CAMERON LAURENT Start: 03-25-2017 GLUCOSE, WHOLE BLOOD JA KANA LAURENT Start: 03-25-2017 BEDREST CAMERON ALFRED ON Start: 03-25-2017 CATHETER REMOVAL CAMERON LAURENT Start: 03-25-2017 FULL CODE CAMERON ALFRED ON Start: 03-25-2017 INTAKE AND OUTPUT CAMERON LAURENT Start: 03-25-2017 IP CONSULT TO CASE MANAGEMENT CAMERON LAURENT Start: 03-25-2017 NOTIFY PHYSICIAN (SPECIFY) CAMERON LAURENT Start: 03-25-2017 NURSING COMMUNICATION Gay LAURENT Start: 03-25-2017 OT EVAL AND TREAT CAMERON LAURENT Start: 03-25-2017 POCT GLUCOSE CAMERON ALFRED ON Start: 03-25-2017 PT EVAL AND TREAT CAMERON LAURENT Start: 03-25-2017 PULSE OXIMETRY SPOT CHECK CAMERON LAURENT Start: 03-25-2017 REASON FOR NO CHEMIC AL VTE PROPHYLAXIS CAMERON LAURENT Start: 03-25-2017 TELEMETRY MONITORING JON LAURENT Start: 03-25-2017 TOBACCO CESSATION EDUCATION CAMERON LAURENT Start: 03-25-2017 VERIFY INFORMED CONSENT CAMERON LAURENT Start: 03-25-2017 VITAL SIGNS CAMERON ALFRED ON Start: 03-25-2017 PATIENT STATUS (FROM ED OR OR/PROCEDURAL) CAMERON LAURENT Start: 03-25-2017 Chest x-ray 1 view frontal CAMERON LAURENT Start: 03-25-2017 APTT CAMERON ALFRED ON Start: 03-25-2017 CBC WITH AUTO DIFFERENTIAL CAMERON LAURENT Start: 03-25-2017 COMPREHENSIVE METABO LIC PANEL CAMERON MEHRAN Start: 03-25-2017 HEMOGLOBIN A1C CAMERON LUCAS KOLTON Start: 03-25-2017 PROTIME-INR CAMERON ALFRED ON Start: 03-25-2017 TYPE AND SCREEN CAMERON Caridad GAYTAN Start: 03-25-2017 CATHETER REMOVAL CAMERON MEHRAN Start: 03-25-2017 INSERT DALAL CATHETER J CARMELINA MEHRAN Start: 03-25-2017 DALAL/UROLOGY CARE SILVIO LAURENT Start: 03-25-2017 EKG 12-LEAD CAMERON ALFRED ON Start: 03-25-2017 SALINE LOCK IV CAMERON LUCAS HI Start: 03-25-2017 Radiologic examinati on knee 3 views CAMERON MEHRAN Start: 03-25-2017 Radex hip unilateral with pelvis 2-3 views CAMERNO LAURENT Plan of Treatment Date Care Activity Detail Author Start: 03-11-2024 GFR test (Diabetes, CKD 3-4, OR last GFR 15-59) GFR test (Diabetes, CKD 3-4, OR last GFR 15-59) [facility] Start: 08-19-2023 FQHC visit, estab pt Medical E stablished Patient [facility] Work Phone: Start: 07-18-2023 End: 07-18-2023 Patient education based on identified need [facility] Start: 04-06-2023 Urine Culture & Sensitivity (24716) [facility] Start: 03-21-2023 FQHC visit, estab pt Medical E stablished Patient [facility] Work Phone: Start: 03-08-2023 Annual Wellness Visi t (AWV) Annual Wellness Visit (AWV) [facility] [employer] Start: 03-07-2023 End: 03-07-2023 Patient education based on identified need [facility] Start: 03-07-2023 CBC W Auto Different ial panel - Blood [facility] Start: 03-07-2023 Lipid 1996 panel - S elizabeth or Plasma LIPID PROFILE [facility] Start: 10-31-2021 COVID-19 Vaccine (5 - Booster for Moderna series) COVID-19 Vaccine (5 - Booster for Moderna series) [facility] Start: 03-25-2018 Hemoglobin A1c measurement A1C test (Diabetic or Prediabetic) [facility] Start: 2011 Screening for osteoporosis DEXA (modify frequency per FRAX score) [facility] Start: 2006 Screening for malign ant neoplasm of breast Breast cancer screen [facility] Start: 2006 Shingles vaccine (1 of 2) Shingles vaccine (1 of 2) [facility] Start: 2001 Screening for malign ant neoplasm of colon [facility] Start: 1975 DTaP/Tdap/Td vaccine (1 - Tdap) DTaP/Tdap/Td vaccine (1 - Tdap) [facility] Start: 1974 Glaucoma screening Diabetic retinal exam [facility] [employer] Start: 1974 Hepatitis C screening Hepatitis C sc reen [facility] [employer] Start: 1974 Urine screening for protein Diabetic Alb to Cr ratio (uACR) test [facility] Start: 1968 Depression Monitoring Depression Mon itoring [facility] Start: 1966 Diabetic foot examination Diabetic foot exam [facility] Start: 1966 Lipid panel Lipids [facility] End: 03-11-2023 Culture, Urine [facility] [employer] Work Phone: Comment on above: Once for 1 Occurrenc es starting 03/11/2023 until 03/11/2023 Immunizations Immunization Date Immunization Notes Care Provider Valeria winston 01-02-2023 pneumococcal polysaccharide vaccine, 23 valent Sonya Carlo PERSONAL DEVELOPMENT EDUCATOR Work Phone: [facility] 09-05-2021 1st Dose MODERNA COV ID-19 Vaccine Sonya Carlo PERSONAL DEVELOPMENT EDUCATOR Work Phone: [facility] 08-08-2021 diphtheria, tetanus toxoids and pertussis vaccine Sonya Carlo PERSONAL DEVELOPMENT EDUCATOR Work Phone: [facility] 08-07-2021 influenza, high dose seasonal, preservative-free Sonya Carlo PERSONAL DEVELOPMENT EDUCATOR Work Phone: [facility] 01-01-2021 1st Dose MODERNA COV ID-19 Vaccine Sonya Carlo PERSONAL DEVELOPMENT EDUCATOR Work Phone: [facility] 12-05-2020 1st Dose MODERNA COV ID-19 Vaccine Sonya Carlo PERSONAL DEVELOPMENT EDUCATOR Work Phone: [facility] 08-30-2020 Seasonal, quadrivale nt, recombinant, injectable influenza vaccine, preservative free Sonya Carlo PERSONAL DEVELOPMENT EDUCATOR Work Phone: [facility] 08-28-2019 influenza, injectabl e, quadrivalent, contains preservative Sonya Carlo PERSONAL DEVELOPMENT EDUCATOR Work Phone: [facility] 09-20-2016 influenza, seasonal, injectable, preservative free Sonya Carlo PERSONAL DEVELOPMENT EDUCATOR Work Phone: [facility] Payers Date Payer Category Payer Self-pay [id number] 2014 Medicare [id number] 2014 Medicare [id number] 1959 Self-pay [id number] 1959 Unknown [id number] 1956 Unknown [id number] 2.16.8 [id number] 1956 Unknown [id number] 2.16.84 [id number] 1956 Unknown [id number] 2.16.84 [id number] 1956 Unknown [id number] 2.16.84 [id number] 1956 Unknown [id number] 2.16.84 [id number] 1956 Unknown [id number] 2.16.84 [id number] 1956 Unknown [id number] 2.16.84 [id number] 1956 Unknown [id number] 2.16.84 [id number] 1956 Unknown [id number] 2.16.84 [id number] 1956 Unknown [id number] 2.16.84 [id number] 1956 Unknown [id number] 2.16.84 [id number] 1956 Unknown [id number] 2.16.84 [id number] 1956 Unknown [id number] 2.16.84 [id number] 1956 Unknown [id number] 2.16.84 [id number] 1956 Unknown [id number] 2.16. [id number] Medicare Medicare [id number] Private Health Insurance [facility] [id number] Unknown [id number] 2.16.8 [id number] Social History Date Type Detail Facility Tobacco smoking status GAIS Unknown if ever smoked [facility] Start: 1955 Sex Assigned At Female F [facility] Assertion Lives with spous e (finding) [facility] Assertion Emotional stress (finding) [facility] Assertion Cigarette smoker (finding) [facility] Assertion Smoker (finding) [facility] Assertion Exposure to poll ution (event) [facility] Tobacco smoking status Unknown if ever smoked [facility] Work Phone: Start: 03-25-2017 Tobacco smoking status NHIS Smokes tobacco daily [employer] Start: 03-25-2017 Cigarettes smoked current (pack per day) - Reported 0.5 [employer] Start: 03-11-2023 Alcohol intake 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 (finding) [employer] Start: 1955 Sex Assigned At Not on file B ON [employer] Assertion Gender identity finding (finding) [facility] Assertion Finding of sexua l orientation (finding) [facility] Assertion Currently not se xually active (finding) [facility] NEGATED: Highlighted row Assertion Current drinker of alcohol (finding) [facility] NEGATED: Highlighted row Assertion [facility] NEGATED: Highlighted row Assertion Finding relating to drug misuse behavior (finding) [facility] Medical Equipment Procedure Code Equipment Code Equipment Origin al Text Equipment Identifier Dates ReliOn Pen Needl es [id number] X 6 MM Miscellaneous [id number] Start: 06-25-2023 Goals Date Patient Goal Desired Activity /State Mental Status Date Assessment Result Facility Cognitive function The estimated intelligence was normal Intelligence finding (finding) [facility] Work Phone: Clinical Notes 03-25-2022 to 07-18-2023 Note Date & Type Note Facility 07-18-2023 Instructions Includes: Instructions for all patient encounters Discussed nutritional needs teach healthy choices including fruits and vegetables Last Documented On 3 2:45PM ; [facility] Patient education about a pr oper diet Last Documented On 3 2:45PM ; [facility] Discussed concerns about exe rcise : promote physical activity Last Documented On 3 2:45PM ; [facility] Referred Patient to a Diabet es Self-Management Program Last Documented On 3 3:12PM ; [facility] introduced patient to [facility] integrated model of care. ~[facility] provided supportive and active listening, allowing patient the space to discuss concerns and explored with patient coping strategies and resources for support. Patient declines additional resources at this time but is aware to reach out to the office should she have questions or concerns. ~[facility] encouraged patient to continue addressing physical health needs and attend appointments as scheduled Last Documented On 3 9:52PM ; [facility] Discussed nutritional needs teach healthy choices including fruits and vegetables Last Documented On 3 3:42PM ; [facility] Patient education about a pr oper diet Last Documented On 3 3:42PM ; [facility] Discussed concerns about exe rcise : promote physical activity ~ ~Get labs done and follow up in two weeks Last Documented On 3 5:15AM ; [facility] Referred Patient to a Diabet es Self-Management Program Last Documented On 3 4:08PM ; [facility] Work Phone: [phone]) 714-490910-26-2023 Evaluation note Includes: Assessments for all patient encounters Findings Encounter Date [Z68.31 - Body mass index [B DC] 31.0-31.9, adult] assessment of body mass index Medical Established Patient with Soco Alcantar PERSONAL DEVELOPMENT EDUCATOR 07/18/2023 Last Documented On 3 2:26PM ; [facility] Dependence on nicotine in ci garettes - uncomplicated Medical Established Patient with Soco Alcantar PERSONAL DEVELOPMENT EDUCATOR 07/18/2023 Last Documented On 3 2:26PM ; [facility] Essential hypertension Medical Establish ed Patient with Soco Alcantar PERSONAL DEVELOPMENT EDUCATOR 07/18/2023 Last Documented On 3 2:26PM ; [facility] Type 2 diabetes mellitus wit hout complication Medical Established Patient with Soco Alcantar PERSONAL DEVELOPMENT EDUCATOR 07/18/2023 Last Documented On 3 2:26PM ; [facility] 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 Medical Established Patient with Soco Alcantar PERSONAL DEVELOPMENT EDUCATOR 07/18/2023 Last Documented On 3 2:26PM ; [facility] Anxiety disorder NOS Established Patient with Sobia Yanez LISWS 03/07/2023 Last Documented On 3 9:52PM ; [facility] Dependence on nicotine in ci garettes - uncomplicated BH Established Patient with Sobia Short LISWS 03/07/2023 Last Documented On 3 9:52PM ; [facility] Mild recurrent major depression Estab lished Patient with Sobia Short LISWS 03/07/2023 Last Documented On 3 9:52PM ; [facility] [Body mass index [BMI] 33.0- 33.9, adult] assessment of body mass index Medical New Patient with Sonya Posada PERSONAL DEVELOPMENT EDUCATOR 03/07/2023 Last Documented On 3 7:51PM ; [facility] Colon screening Medical New Patient with Sonya Srer PERSONAL DEVELOPMENT EDUCATOR 03/07/2023 Last Documented On 3 7:51PM ; [facility] Diabetes Risk Test Score was 7.0 score 03/07/2023 Medical New Patient with Sonya Srer PERSONAL DEVELOPMENT EDUCATOR 03/07/2023 Last Documented On 3 7:51PM ; [facility] Screening for Hep C Medical New Patient with Ronnie sie Carlo PERSONAL DEVELOPMENT EDUCATOR 03/07/2023 Last Documented On 3 7:51PM ; [facility] Screening for HIV Medical New Patient with Joselyn e Carlo PERSONAL DEVELOPMENT EDUCATOR 03/07/2023 Last Documented On 3 7:51PM ; [facility] Work Phone: [phone]) 562-485810-26-2023 History general Narrative - Reported Includes: Medical History in patient's chart Description Last Updated Not planning to have a baby in the next 12 months 07/18/2023 Last Documented On 3 2:26PM ; [facility] History of tooth extraction 03/07/2023 Last Documented On 3 7:51PM ; [facility] No medical history or no significant his tory 03/07/2023 Last Documented On 3 7:51PM ; [facility] No previous hospitalizations 03/07/2023 Last Documented On 3 7:51PM ; [facility] Recent immunization for flu 03/07/2023 Last Documented On 3 7:51PM ; [facility] Work Phone: [phone] Progress note* Progress note Date Encounter Last Documented by 07/18/2023 Medical Established Patient Last documented on 07/19/2023; 2:26 PM, Soco Alcantar CNP; [facility] Active Problems & Conditions - F41.9 - Anxiety Disorder Nos - E13.40 - Diabetes Mellitus Diabetic Peripheral Neuropathy - E11.9 - Diabetes Mellitus Type 2 Without Complication - I10 - Essential Hypertension - F33.0 - Major Depression Recurrent Mild - F17.210 - Nicotine Dependence Cigarettes Uncomplicated - E11.311 - Type 2 Diabetes with Diabetic Retinopathy with Macular Edema Chief Complaint The Chief Complaint is: Needs refills on meds. Reason For Visit Visit for: [facility]. Referred Here Not referred by urgent care clinic and not the emergency room. No prior encounters. - Data to be reviewed: no clinical lab tests History of Present Illness - Allergy list reviewed - Reviewed Medications - Medication list reviewed Patient reports that she is need of medication refills. Patient reports that she would like to use our pharmacy in the future. Patient reports that she was recently in a [facility]dc and was discharged about 2 weeks ago. Patient reports that she was admitted to the fdc after a fall. Has not had any falls since being home. Patient reports that she is not sure how long she was in the fdc, states she was in the hospital prior to the fdc admission but only for a few days. Patient reports that she thinks she was a [facility]. Patient reports that she checks sugars once in the morning and once before bed. Patient reports sugar this morning was 170. Patient reports that she is still following with Endocrine, she is aware to call and schedule follow up with that office. Patient reports that she also follows with cardiology, she is not sure who she is seeing, office may be on [address]- she is not sure of the name, patient reports that all of the specialists she see's are on [address]. Patient reports she is due for eye exam Current Medication - amLODIPine Besylate 10 MG Oral Tablet Once daily, 0 days, 0 refills - Aspir-Low 81 MG Oral Tablet Delayed Release 0 days, 0 refills - Atorvastatin Calcium 40 MG Oral Tablet Once daily, 0 days, 0 refills - Clopidogrel Bisulfate 75 MG Oral Tablet 90 days, 0 refills - Farxiga 10 MG Oral Tablet once daily, 0 days, 0 refills - Lantus SoloStar 100 UNIT/ML Subcutaneous Solution Pen-injector 62 days, 0 refills - Loperamide HCl 2 MG Oral Capsule 0 days, 0 refills - metFORMIN HCl 1000 MG Oral Tablet 90 days, 0 refills - Metoprolol Succinate ER 50 MG Oral Tablet Extended Release 24 Hour Once daily, 0 days, 0 refills - Pain Reliever 325 MG Oral Tablet Take 2 tablets every 6 hours as needed, 0 days, 0 refills - ReliOn Pen [place] 31G X 6 MM Miscellaneous 31G X 6 MM 10 days, 0 refills - Spironolactone 25 MG Oral Tablet Take 1/2 tablet daily, 0 days, 0 refills - Trulicity 0.75 MG/0.5ML Subcutaneous Solution Pen-injector 28 days, 0 refills Past Medical/Surgical History Reported: Medical: No medical history or no significant history and no previous hospitalizations. Immunization History: Recent immunization for flu. : Not planning to have a baby in the next 12 months. Procedural: - Tooth extraction Surgical: - General surgery open heart surgery 2002 rotater cuff right gallbladder - Hysterectomy - Knee replacement right half - Knee replacement left whole Social History Environmental Exposure: Secondhand cigarette smoke exposure. Tobacco use: Cigarette smoking Light (1-10/day). Not using electronic cigarettes/vaping. Alcohol: Not using alcohol. Drug Use: Not using drugs denied by patient. Sexual: Denied sexual activity, sexual orientation Straight (not lesbian or lynn), and gender identity Female. Allergies - adhesive tape - Bandaids - Vicodin Reaction: Nausea Family History Paternal: Type 2 diabetes mellitus Maternal: Type 2 diabetes mellitus Oncologic disorder Review Of Systems Systemic: No systemic symptoms. Head: No headache. Otolaryngeal: No ear symptoms, no nasal symptoms, and no throat symptoms. Cardiovascular: No chest pain or discomfort. Pulmonary: No pulmonary symptoms. Gastrointestinal: No gastrointestinal symptoms. Genitourinary: No genitourinary symptoms. Musculoskeletal: No musculoskeletal symptoms. Neurological: No neurological symptoms. Psychological: No psychological symptoms. Skin: No skin symptoms. Physical Findings - Vitals taken 07/18/2023 02:41 pm BP-Sitting L108/60 mmHg Pulse Rate-Eivvemx322 bpm Respiration Rate16 per min Temp-Bkiirlfo58.9 F Efctcg46 in Cuadew394 lbs Body Mass Index31.5 kg/m2 Body Surface Area1.9 m2 Oxygen Jzipchteww17 % Vital Signs: - Systolic blood pressure < 130 mmHg. - Diastolic Blood Pressure < 80 mmHg. General Appearance: - Awake. - Alert. - In no acute distress. Eyes: General/bilateral: Pupils: - PERRLA. Ears: General/bilateral: Tympanic Membrane: - Examined. - Not bulging. - No retraction of tympanic membrane. - Not erythematous. - Not opacified. Right Ear: - Examined. Left Ear: - Examined. Nose: General/bilateral: Discharge: - No nasal discharge. Pharynx: Oropharynx: - Abnormal post nasal drip. Lungs: - Respiration rhythm and depth was normal. - Clear to auscultation. Cardiovascular: Heart Rate And Rhythm: - Normal. Heart Sounds: - Normal. Abdomen: Auscultation: - Bowel sounds were normal. Musculoskeletal System: General/bilateral: - Normal movement of all extremities. Foot: General/bilateral: - Abnormal 10-g monofilament exam of right foot. - Abnormal 10-g monofilament exam of left foot. Neurological: - Confusion was observed. - Oriented to time, place, and person. Psychiatric: - Expression of emotions finding was normal. Appearance: - Clothing was appropriate dirty but appropriate for the weather. Skin: - General appearance was normal. Physician's Services: - Diabetic Foot Exam Normal Tests Blood Analysis: Hemoglobin Studies: ValueDate Blood hemoglobin A1c 8.9%07/18/2023 Imaging: Ophthalmoscopy: Diabetic retinopathy present, with remote physician / healthcare professional interpretation and report, and Optomap completed Both eyes (OU). Assessment - Z68.31 - Body mass index [BMI] 31.0-31.9, adult - I10 - Essential (primary) hypertension - E11.9 - Type 2 diabetes mellitus without complications - E11.311 - Type 2 diabetes mellitus with unspecified diabetic retinopathy with macular edema - F17.210 - Nicotine dependence, cigarettes, uncomplicated Vaccinations - 1st Dose MODERNA COVID-19 Vaccine Dose #1 Status: Prev Hist Date: 12/05/2020 - 1st Dose MODERNA COVID-19 Vaccine Dose #2 Status: Prev Hist Date: 01/01/2021 - 1st Dose MODERNA COVID-19 Vaccine Dose #3 Status: Prev Hist Date: 09/05/2021 - DTP Dose #1 Status: Prev Hist Date: 08/08/2021 - Influenza, injectable, quadrivalent (Fluzone) Dose #1 Status: Prev Hist Date: 08/28/2019 - Influenza virus, split virus, preservative free, IM Dose #1 Status: Prev Hist Date: 08/07/2021 - Influenza, seasonal, injectable, preservative free Dose #1 Status: Prev Hist Date: 09/20/2016 - Influenza, recombinant, quadrivalent,injectable, preservative free Dose #1 Status: Prev Hist Date: 08/30/2020 - PCV (Pneumovax 23) Dose #1 Status: Prev Hist Date: 01/02/2023 - Received dose of Reported: Patient has received the COVID Vaccine Counseling/Education - Wishing to stop smoking Discussed Quit Line resources - Discussed nutritional needs teach healthy choices including fruits and vegetables - Patient education about a proper diet - Referred Patient to a Diabetes Self-Management Program - Discussed concerns about exercise: promote physical activity Plan StartCited- Essential (primary) hypertension amLODIPine Besylate 10 MG tablet Take 1 tablet by mouth daily, 30 days, 2 refills Aspir-Low 81 MG tablet Take 1 tablet by mouth daily, 30 days, 2 refills Metoprolol Succinate ER 50 MG tablet Take 1 tablet by mouth daily, 30 days, 2 refills Spironolactone 25 MG tablet No Sig Selected Take 1/2 tablet daily, 30 days, 2 refills EndCited StartCited- Other Atorvastatin Calcium 40 MG tablet Take 1 tablet by mouth daily before bed, 30 days, 2 refills Clopidogrel Bisulfate 75 MG tablet Take 1 tablet by mouth daily, 90 days, 0 refills EndCited StartCited- Type 2 diabetes mellitus without complications In House Test/Screen/In House Screening: OPTOMAP EndCited Patient clothing is very dirty as are the patient finger nails. Shoes are boken and toes are exposed. Offered to help patient obtain new shoes and she is declining, she prefer these as they are comfortable and she can slide them on. Patient reports that she has another pair of tennis shoes at home but could not find them. Patient to have mammogram ordered, will look for colonoscopy at [facility]. Patient to follow up in 1 month Advised to call and schedule with endocrine. Offered home care referral to help with ADL's due to the patient appearing very unkempt and patient refused. Practice Management Hemoglobin A1c level >=8.0 and <= 9.0%. Advance Directives - Declined to Provide Advance Directive Health Reminders - Assess BMI satisfied 07/18/2023. - Assess Tobacco Use satisfied 07/18/2023. - Eye Exam satisfied 07/19/2023. - Follow Up Plan BMI Management satisfied 07/18/2023. - Foot Exam satisfied 07/18/2023. - CAM-2 satisfied 07/18/2023. - Hemoglobin A1c satisfied 07/18/2023. - PHQ9 / PHQA satisfied 07/18/2023. - Smoking & Tobacco Cessation Intervention and Counseling satisfied 07/18/2023. - Statin Therapy Needed satisfied 07/18/2023. User Defined 1 CAM-2 score was 0 07/18/2023, CAM-7 score [CAM-7] Feeling nervous, anxious or on edge? + 0 pt : Not at all, [CAM-7] Not being able to stop or control worrying? + 0 pt : Not at all, Patient Health Questionnaire 9-Item total score was three 07/18/2023, [PHQ-9-1] Little interest or pleasure in doing things? + 0 pt : Not at all, [PHQ-9-2] Feeling down, depressed, or hopeless? + 0 pt : Not at all, [PHQ-9-3] Trouble falling or staying asleep or sleeping too much? + 3 pt : Nearly every day, [PHQ-9-4] Feeling tired or having little energy? + 0 pt : Not at all, [PHQ-9-5] Poor appetite or overeating? + 0 pt : Not at all, [PHQ-9-6] Feeling bad about yourself-or that you are a failure + 0 pt : Not at all, [PHQ-9-7] Trouble concentrating on things such as reading the newspaper + 0 pt : Not at all, [PHQ-9-8] Moving or speaking so slowly that other people have noticed. + 0 pt : Not at all, and [PHQ-9-9] Thoughts that you would be better off or hurting yourself? + 0 pt : Not at all. Bottom of Document [facility] Chief Complaint: Patient here for follow up NSTEMI. She denies chest pain, SOB, and palpitations. Gets a little lightheaded at times. She was discharged on Entresto and Farxiga but neither of them are on her medication list from the fdc. HPI: Kiara Blanc is a 68 y.o. female with a known history of coronary artery disease, prior coronary artery bypass graft surgery, who was recently admitted to [facility] (See hospital discharge summary below) Thankfully, she is more herself and recognizes me instantly She denies new cardiovascular symptoms; specifically, she denies chest pain, shortness of breath, orthopnea, paroxysmal external dyspnea or lower extremity edema. Hospital course: Kiara Blanc is an 68 y.o. female who came from [facility] for NSTEMI. [facility] with known history of CAD, HLD, CAD, smoker, chronic diastolic HF w NYHA Class II, diabetes mellitus presents to hospital today as a direct transfer for cardiology service evaluation. Patient had initially presented at outside facility by ambulance after he was found on floor lying between while in couch yesterday on 04/25where he has she has been lying for a few days in her stool per report. On arrival, patient was altered, underwent trauma work-up which was within normal limits. Patient is nonparticipatory in history and does not offer any meaningful information, she does not remember events. Over at at the facility on arrival, she was noted to have rhabdomyolysis, suspected UTI and hypoglycemia and initial troponin was slightly elevated. Patient was admitted at their facility for IV resuscitation, started on empiric Rocephin and troponin curve was trended. Patient denies any chest pain or any symptoms associated with her symptoms. During the hospitalization up until 8 4 today, her high sensitive troponin increased from 100 to over 1000. Case was discussed with our cardiology service here and she was subsequently transferred here for cardiac evaluation. She was started on aspirin and heparin drip was commenced. Additionally, patient had episode of hypoglycemia in the hospital over there with dropping as low as 30s and subsequently started on a dextrose drip. is also reported, patient has history of noncompliance to her medications, on last cardiology notes review she was supposed to be on aspirin and Plavix, she has a very difficult poor living situation and EMS has called Adult Protective Services multiple times for this patient in the past. # NSTEMI: # Chronic HrEF with worsening EF 30%: - Completed heparin for 48 hours. - Discharged on Toprol, Entresto, spironolactone and Farxiga. - Continue aspirin, Plavix and Lipitor. - Cardio recommended conservative therapy at this point with outpatient follow up. # Syncope, suspected due to hypoglycemia: - Echo showed no valvular disease. # HypoMg and hypokalemia, improving: - We will replace with oral magnesium 400 mg bid. # Traumatic rhabo, resolved. # CAD s/p CABG in 2016: - Continue aspirin, Plavix, Lipitor and Toprol. # IDDM2 with hypoglycemia, improving: - A1C is 9. - Lantus reduced to 20 U BID. - Monitor glucose closely. # Dementia with behavioral disturbances, improving: - CT brain at OSH showed no acute event. - UA showed no UTI. - Seroquel 25 mg BID. Cardiology ROS: Review of Systems Neurological: Positive for light-headedness and loss of balance. All other systems reviewed and are negative. Past Medical History She has no past medical history on file. Surgical History She has no past surgical history on file. Social History She reports that she has never smoked. She has never used smokeless tobacco. She reports that she does not currently use alcohol. She reports that she does not use drugs. Family History No family history on file. Allergies Adhesive, Hydrocodone bitartrate, and Hydrocodone-acetaminophen Medications Current Outpatient Medications: aspirin 81 mg EC tablet, Take 1 tablet (81 mg) by mouth in the morning. Do not start before May 05, 2023., Disp: 30 tablet, Rfl: 11 atorvastatin (Lipitor) 80 mg tablet, Take 1 tablet (80 mg) by mouth at bedtime., Disp: 30 tablet, Rfl: 3 clopidogrel (Plavix) 75 mg tablet, Take 75 mg by mouth in the morning., Disp: , Rfl: dapagliflozin propanediol (Farxiga) 10 mg, Take 1 tablet (10 mg) by mouth in the morning. Do not start before May 05, 2023., Disp: 30 tablet, Rfl: 11 insulin glargine (Lantus) 100 unit/mL injection, Inject 20 Units under the skin in the morning and at bedtime., Disp: 10 mL, Rfl: 12 magnesium oxide (Mag-Ox) 400 mg (241.3 mg magnesium) tablet, Take 1 tablet (400 mg) by mouth in the morning and at bedtime., Disp: 60 tablet, Rfl: 11 metFORMIN (Glucophage) 1,000 mg tablet, Take 1,000 mg by mouth with breakfast and with evening meal., Disp: , Rfl: meto (more content not included)...[facility]08-14-2023 NotePhysical Therapy Physical Therapy Treatment Patient Name: Kiara Blanc : 1955 Today's Date: 05/06/2023 Patient Active Problem List Diagnosis Coronary artery disease involving [place] coronary artery of [place] heart without angina pectoris Hyperlipidemia, mixed Edema of lower extremity Chronic diastolic heart failure (CMS/HCC) Tobacco dependence NSTEMI (non-ST elevated myocardial infarction) (CMS/HCC) Acute cystitis without hematuria Hypoglycemia Traumatic rhabdomyolysis (CMS/HCC) Acute on chronic systolic (congestive) heart failure (CMS/HCC) Time : 13:09-13:48 05/06/23 1350 PT Last Visit PT Received On 05/06/23 General Subjective Pt per nursing can be seen for P.T. services per nursing staff , upon verse writer entering the room pt was sidelying in the bed with her brief half off pt was awake and verse writer asked pt about getting out of bed and to go to the bathroom to check her brief. Pt willing to get up and work with therapy Cognition Overall Cognitive Status Impaired Arousal/Alertness Delayed responses to stimuli;Inconsistent responses to stimuli Orientation Level Disoriented to time;Disoriented to situation;Disoriented to place (pt looking for her dog again today verse writer had to explain to pt that she is not at home and her dog is at home with her . Pt could no longer use the phone today and did not even hold it the right way up to her ear) Awareness of Errors Decreased awareness of errors Problem Solving Assistance required to implement solutions Cognition Comments pts told verse writer in the past that pt has dementia. Therapeutic Exercise Therapeutic Exercise Activity 1 Standing LE exercises for bilat LE's hip abduction and adduction , marching for strengthening hip flexors with bilat UE support 10 reps 1 set Static Standing Balance Static Standing-Balance Support Left upper extremity supported;Right upper extremity supported;With device Static Standing-Level of Assistance Contact guard Dynamic Standing Balance Dynamic Standing-Balance Support Left upper extremity supported;Right upper extremity supported;With device Dynamic Standing-Balance (while walking to and from the bathroom 14 ft x 2) Dynamic Standing Balance-Level of Assistance Contact guard Ambulation Ambulation Yes Ambulation 1 Surface 1 Level tile Device 1 Rolling walker Assistance 1 Contact guard Comments/Distance (ft) 1 16 ft x 2 Bed Mobility Bed Mobility Yes Bed Mobility 1 Bed Mobility From 1 Supine Bed Mobility Type 1 To Bed Mobility to 1 Short sit (HOB elevated to 20 degrees) Level of Assistance 1 Moderate assistance Bed Mobility Comments 1 50% tactile cues to assist pt with getting her LE's off EOB and to get pt sitting upright with her trunk Transfers Transfer Yes Transfers 2 Transfer From 2 Sit Transfer Type 2 To and from Transfer to 2 Stand Technique 2 Sit to stand;Stand to sit Transfer Device 2 rolling walker Transfer Level of Assistance 2 Minimum assistance;Contact guard (depending on seat height from which pt stands up or sits down , toilets are more min a x 1 , bed and bedside chair more CGA) Other Activity Other Activity 2 Pt left in bedside recliner with legs elevated with chair alarm on and call light in place Plan PT Discharge Recommendations jail facility placement Goals: Multi-Disciplinary Problems (from Physical Therapy) Active Problems Problem: PT Misc Start Date: 04/29/23 Goal Start Date Expected End Date End Date Patient to demonstrate the ability to complete all bed mobility independently 04/29/23 05/13/23 -- Goal Details: Progress HOB to flat Goal Start Date Expected End Date End Date Patient to demonstrate the ability to complete all transfers independently with use of RW as needed 04/29/23 05/13/23 -- Goal Start Date Expected End Date End Date Patient to demo the ability to ambulate 50 ft with SBA and use of RW as needed 04/29/23 05/13/23 -- Goal Start Date Expected End Date End Date Patient to maintain balance throughout all functional tasks 04/29/23 05/13/23 -- Goal Start Date Expected End Date End Date Patient to participate in BLE exercise to improve strength and limit effects of immobility 04/29/23 05/13/23 -- 05/06/23 1600 6 Clicks (Mobility) Help from another person turning from your back to your side while in a flat bed without using bedrails 3 Help from another person moving from lying on your back to sitting on the side of a flat bed without using bedrails 2 Help from another person moving to and from a bed to a chair (including a wheelchair) 3 Help from another person standing up from a chair using your arms (e.g. wheelchair or bedside chair) 3 Help from another person to walk in hospital room 3 Help from another person climbing 3-5 steps with a railing 1 Mobility 6 Clicks T-Score 15[facility]08-14-2023 Note Discharge order placed. AVS uploaded to [employer]. Transport set up with [facility] at 4PM. Transport form and packet completed and left bedside the chart. Facility and floor RN aware of transport time. Phone number for report left with packet. No further OTM needs at this time.[facility] 05-06-2023 NoteHospital Medicine Discharge Summary Final Discharge Diagnosis: NSTEMI (non-ST elevated myocardial infarction) (CMS/HCC) Admission Diagnosis: NSTEMI (non-ST elevated myocardial infarction) (CMS/[facility]) [I21.4] Hospital course: Kiara Blanc is an 68 y.o. female who came from [facility] for NSTEMI. Patient was admittied [facility]ail[facility] at [facility] with known history of CAD, HLD, CAD, smoker, chronic diastolic HF w NYHA Class II, diabetes mellitus presents to hospital today as a direct transfer for cardiology service evaluation. Patient had initially presented at outside facility by ambulance after he was found on floor lying between while in couch yesterday on 04/25where he has she has been lying for a few days in her stool per report. On arrival, patient was altered, underwent trauma work-up which was within normal limits. Patient is nonparticipatory in history and does not offer any meaningful information, she does not remember events. Over at at the facility on arrival, she was noted to have rhabdomyolysis, suspected UTI and hypoglycemia and initial troponin was slightly elevated. Patient was admitted at their facility for IV resuscitation, started on empiric Rocephin and troponin curve was trended. Patient denies any chest pain or any symptoms associated with her symptoms. During the hospitalization up until 8 4 today, her high sensitive troponin increased from 100 to over 1000. Case was discussed with our cardiology service here and she was subsequently transferred here for cardiac evaluation. She was started on aspirin and heparin drip was commenced. Additionally, patient had episode of hypoglycemia in the hospital over there with dropping as low as 30s and subsequently started on a dextrose drip. is also reported, patient has history of noncompliance to her medications, on last cardiology notes review she was supposed to be on aspirin and Plavix, she has a very difficult poor living situation and EMS has called Adult Protective Services multiple times for this patient in the past. # NSTEMI: # Chronic HrEF with worsening EF 30%: - Completed heparin for 48 hours. - Discharged on Toprol, Entresto, spironolactone and Farxiga. - Continue aspirin, Plavix and Lipitor. - Cardio recommended conservative therapy at this point with outpatient follow up. # Syncope, suspected due to hypoglycemia: - Echo showed no valvular disease. # HypoMg and hypokalemia, improving: - We will replace with oral magnesium 400 mg bid. # Traumatic rhabo, resolved. # CAD s/p CABG in 2016: - Continue aspirin, Plavix, Lipitor and Toprol. # IDDM2 with hypoglycemia, improving: - A1C is 9. - Lantus reduced to 20 U BID. - Monitor glucose closely. # Dementia with behavioral disturbances, improving: - CT brain at OSH showed no acute event. - UA showed no UTI. - Seroquel 25 mg BID. Dear No primary care provider on file., Kiara is advised to follow up with you within 1-2 weeks. Follow-up with: Cardiology Scheduled appointments: Future Appointments Date Time Provider [facility] 06/05/2023 9:00 AM RYAN Zhong. Your medication list START taking these medications Instructions Last Dose Given Next Dose Due aspirin 81 mg EC tablet Replaces: aspirin 325 mg tablet Take 1 tablet (81 mg) by mouth in the morning. Do not start before May 05, 2023. dapagliflozin propanediol 10 mg Commonly known as: Farxiga Take 1 tablet (10 mg) by mouth in the morning. Do not start before May 05, 2023. magnesium oxide 400 mg (241.3 mg magnesium) tablet Commonly known as: Mag-Ox Take 1 tablet (400 mg) by mouth in the morning and at bedtime. metoprolol succinate XL 50 mg 24 hr tablet Commonly known as: Toprol-XL Take 1 tablet (50 mg) by mouth in the morning. Do not crush or chew. Do not start before May 05, 2023. QUEtiapine 25 mg tablet Commonly known as: SEROquel Take 1 tablet (25 mg) by mouth if needed in the morning and at bedtime (for agitation and sleep). sacubitril-valsartan 24-26 mg tablet Commonly known as: Entresto Take 1 tablet by mouth in the morning and at bedtime for 183 doses. spironolactone 25 mg tablet Commonly known as: Aldactone Take 1 tablet (25 mg) by mouth in the morning. Do not start before May 05, 2023. CHANGE how you take these medications Instructions Last Dose Given Next Dose Due atorvastatin 80 mg tablet Commonly known as: Lipitor What changed: when to take this Take 1 tablet (80 mg) by mouth at bedtime. insulin glargine 100 unit/mL injection Commonly known as: Lantus What changed: how much to take Inject 20 Units under the skin in the morning and at bedtime. CONTINUE taking these medications Instructions Last Dose Given Next Dose Due clopidogrel 75 mg tablet Commonly known as: Plavix metFORMIN 1,000 mg tablet Commonly known as: Glucophage omeprazole [address] capsule Commonly known a (more content not included)...[facility]08-14-2023 NoteThis report has been cancelled.[facility]08-14-2023 Note Attestation signed by Luis Alvarez DO at 05/06/2023 1:32 PM Agree with above. No behavioral complaints over the weekend. Recommend following PT/Ot's recommendations regarding placement. Psychiatry Service Progress Note Identifying Data Patient Name: Kiara Blanc MRN / CSN: [id number] Date of / Age: 6 1955 / 68 y.o. / female Encounter Date: 05/06/23 Diagnosis: The primary encounter diagnosis was NSTEMI (non-ST elevated myocardial infarction) (CMS/HCC). A diagnosis of Acute on chronic systolic (congestive) heart failure (CMS/HCC) was also pertinent to this visit. Summary Kiara Blanc is a 68 y.o. female who presented on 04/26/2023 to [facility] from [facility] ([facility]) for acute NSTEMI. Psychiatry was consulted on 04/29/2023 for dementia and delirium. Medical Course: Patient is a 68-year-old female with an unknown psychiatric history and medical history of CAD, HLD, CAD, chronic diastolic HF w/ NYHA Class II, diabetes mellitus presented to [facility] as a direct transfer for cardiology service evaluation for acute NSTEMI. She was admitted initially at [facility] ([facility]) on 04/25/2023 after she was found lying on the floor in between the wall and the couch. On EMS arrival, patient was altered, had extensive stool over her entire body, and dehydrated. She underwent trauma work-up which was within normal limits. Patient was non-participatory in history and did not offer any meaningful information. She did not remember any events. EMS concerned that patient did not provide any additional care for her and refuses to clean or help her at home. Over at the facility on arrival, she was noted to have rhabdommyolysis, suspected UTI, and hypoglycemia and initial troponin was slightly elevated. She received IV resuscitation, started on empiric Rocephin and troponin curve was trended. Patient denied any chest pain or any symptoms associated with her symptoms. CT head, C-spine, CXR, pelvic XR were negative. EKG showed sinus tachycardia with no other acute abnormalities. Lab studies showed minimal leukocytosis (WBC 11.5). Urine culture was positive for grover tropicalis. On 04/26/23, she had elevated troponin level increased from 100 to over 1000. She was subsequently transferred to [facility] for cardiac evaluation. She was started on aspirin and heparin drip was commenced. Patient had an episode of hypoglycemia as low as 30 during OSH hospitalization, which subsequently led to start on a dextrose drip. A1C 9.1. Cardiology held off on cardiac catheterization and will wait until patient is stable from mental standpoint and low concern for ongoing infection. PT/OT recommends SNF placement. SW is currently working on pre-certification. 05/01/23 - Patient complained of left hip pain. Hip X-ray showed no dislocation fracture and osteoarthritis left hip. Psychiatric Course: Psychiatry was consulted on 04/29/2023 for dementia and delirium. When asked about the incident, she only could remember that she tripped over and fell down. She states she has previously been hospitalized multiple times due to falls. Denies any head trauma or seizure episodes. She currently lives with and pets. She does not have any kids. Per nursing staff, patient has had an episode of agitation. One time Haldol 1 mg was given, and Seroquel 25 mg twice daily PRN by Dr. Quan was administered from 04/28/23. Per previous report, patient has a history of noncompliance to her medications. She has a very difficult poor living situation and EMS has called APS multiple times for this patient in the past. Able to talk to , Mr. Cameron Blanc (ph: [phone]) at the patient's bedside. He called EMS when he found her after coming back from work. He mentions she frequently falls at home and has been hospitalized many times. Per , she refuses to use walker despite it was recommended. 04/29/23 - continue Seroquel 25 mg PO BID PRN 04/30/23 - switch Seroquel 25 mg PO BID PRN to scheduled Seroquel 25 mg PO BID 05/01/23 - continue scheduled Seroquel 25 mg PO BID 05/02/23 - Social work has put in referrals to [facility] 1st choice; [facility] 2nd choice as well as alternate choices had no preference of order: [employer] [facility] [employer], [facility]; [facility]; [facility] and [facility] [place]. Awaiting their review. 05/03/23 - start ZyPREXA 2.5 mg BID PRN 05/06/23 - psychiatry signed off Subjective Overnight Events: Per nursing staff, patient has been calm and cooperative overnight. She has been eating her meals and having minimal issues taking medications. PRN Medications: none given Zyprexa 2.5 mg PRN Patient: Patient was evaluated at bedside this morning. Initially sleeping, but up (more content not included)...[facility]08-13-2023 Note Hospital Medicine Daily Progress Note - 05/05/2023 10:49 AM; Room: [address] [place] [address] Admission: 04/26/2023 1:50 PM; Length of stay: 9 days THE HOSPITALIST TEAM PREFERS TO USE [employer] CHAT FOR COMMUNICATION 7AM-7PM. IF I DO NOT RESPOND WITHIN 15 MINUTES, PLEASE PAGE ME/CALL THROUGH THE CABLE SPLICER APPRENTICE. FROM 7PM-7AM, PLEASE PAGE [phone](COVR) Code Status: Full Code Discharge Destination: long term facility Discharge planning: Pending SNF Overview Patient is seen for evaluation and management of NSTEMI. Subjective Patient is calm and less agitated. Patient is confused at her baseline. Denies chest pain, SOB. Physical Exam Visit Vitals BP 138/72 Pulse 88 Temp 35.6 ???C (96 ???F) (Temporal) Resp 18 Intake/Output Summary (Last 24 hours) at 05/05/2023 1049 Last data filed at 05/04/2023 2305 Gross per 24 hour Intake 480 ml Output 400 ml Net 80 ml Physical Exam Cardiovascular: Rate and Rhythm: Normal rate and regular rhythm. Pulmonary: Effort: Pulmonary effort is normal. Breath sounds: Normal breath sounds. Abdominal: General: Abdomen is flat. Palpations: Abdomen is soft. Neurological: Mental Status: She is alert. Comments: Oriented x1 Estimated body mass index is 30.49 kg/m??? as calculated from the following: Height as of this encounter: 1.676 m (5' 6 ). Weight as of this encounter: 85.7 kg (188 lb 15 oz). Active Inpatient Problems Principal Problem: NSTEMI (non-ST elevated myocardial infarction) ([facility]) Active Problems: Acute cystitis without hematuria Hypoglycemia Traumatic rhabdomyolysis ([facility]) Acute on chronic systolic (congestive) heart failure ([facility]) Assessment and Plan # NSTEMI: # Chronic HrEF with worsening EF 30%: - Completed heparin for 48 hours. - Lopressor changed to Toprol. Added Entresto, spironolactone and Farxiga. - Continue aspirin, Plavix and Lipitor. - Cardio recommended conservative therapy at this point with outpatient follow up. # Syncope, suspected due to hypoglycemia: - Echo showed no valvular disease. # HypoMg and hypokalemia, improving: - We will replace with oral magnesium 400 mg bid. # Traumatic rhabo, resolved. # CAD s/p CABG in 2016: - Continue aspirin, Plavix and Lipitor. Lopressor changed to Toprol 25 mg due to reduced EF. # IDDM2 with hypoglycemia, improving: - A1C is 9. - Reduce Lantus to 20 U BID. - Monitor glucose closely. # Dementia with behavioral disturbances, improving: - CT brain at OSH showed no acute event. - UA showed no UTI. - Seroquel 25 mg BID. - Psych is following. Nutrition Screen VTE Prophylaxis: Lovenox Scheduled Meds aspirin, 81 mg, oral, Daily atorvastatin, 80 mg, oral, Nightly clopidogrel, 75 mg, oral, Daily dapagliflozin propanediol, 10 mg, oral, Daily enoxaparin, 40 mg, subcutaneous, q24h KAYLYN insulin aspart, 0-20 Units, subcutaneous, TID with meals insulin glargine, 20 Units, subcutaneous, BID magnesium oxide, 400 mg, oral, BID metoprolol succinate XL, 50 mg, oral, Daily QUEtiapine, 25 mg, oral, BID sacubitril-valsartan, 1 tablet, oral, BID spironolactone, 25 mg, oral, Daily Pertinent Investigations Hematology: Results from last 7 days Lab Units 05/04/23 0414 05/03/23 0525 WBC AUTO 10*3/uL 8.84 7.80 HEMOGLOBIN g/dL 13.0 13.0 HEMATOCRIT % 39.7 40.6 MCV fL 86.3 87.1 PLATELETS AUTO 10*3/uL 383 298 Chemistry: Results from last 7 days Lab Units 05/04/23 0414 05/02/23 0329 05/01/23 0526 SODIUM mmol/L 138 141 138 POTASSIUM mmol/L 4.0 3.9 4.1 CHLORIDE mmol/L 108* 108* 108* CO2 mmol/L 23 BUN mg/dL 18 24 26* CREATININE mg/dL 0.82 0.88 0.76 GLUCOSE mg/dL 75 197* 204* MAGNESIUM mg/dL 1.5* 1.5* 1.3* CALCIUM mg/dL 9.4 9.3 9.1 No lab exists for component: AFIO2, APHT, APCOT, APOT, ATCO2, CK, ALB, IBILI Results from last 7 days Lab Units 05/05/23 0751 05/04/23 2042 05/04/23 1625 05/04/23 1154 05/04/23 0744 05/03/232003 POCT GLUCOSE mg/dL 194* 181* 141* 189* 84 87 Historical Values: (Includes values prior to this admission) Lab Results Component Value Date TSH 1.24 04/29/2023 HDL 34 04/26/2023 LDL 51 04/26/2023 Lab Results Component Value Date [id number] 04/29/2023 Imaging ECG 12 lead Sinus tachycardia Septal infarct , age undetermined T wave abnormality, consider lateral ischemia Abnormal ECG Confirmed by MD KERA, EHAB ([id number]) on 05/04/2023 11:50:40 AM Discharge Planning Discharge Planning Living Arrangements: Spouse/significant other Support Systems: Spouse/significant other Type of Residence/Post Acute Needs: jail facility Will patient need Precert for Post Acute needs?: Yes Patient's goal for discharge: per patient should go to rehab and maybe terminal operations supervisor care. Does the patient need discharge transport arranged?: Yes Has discharge transport been arranged?: No PT Discharge Recommendations: jail facility placement OT Discharge Recomm (more content not included)...[facility]08-13-2023 NoteCountryside working on the insurance precert.[facility]08-12-2023 NotePhysical Therapy Physical Therapy Treatment Patient Name: Kiara Blanc : 1955 Today's Date: 05/04/2023 Patient Active Problem List Diagnosis Coronary artery disease involving [place] coronary artery of [place] heart without angina pectoris Hyperlipidemia, mixed Edema of lower extremity Chronic diastolic heart failure ([facility]/HCC) Tobacco dependence NSTEMI (non-ST elevated myocardial infarction) ([facility]) Acute cystitis without hematuria Hypoglycemia Traumatic rhabdomyolysis ([facility]/HCC) Acute on chronic systolic (congestive) heart failure ([facility]/HCC) Time : 09:12-09:51 05/04/23 1000 PT Last Visit PT Received On 05/04/23 General Subjective Pt per nursing can be seen for P.T. treatment session , upon verse writer entering the room pt was supine in the bed and stated she had finished her breakfast and was willing to do P.T. Cognition Orientation Level Disoriented to place;Disoriented to time;Disoriented to situation;Oriented to person Balance/Neuromuscular Re-Education Balance/Neuromuscular Re-Education Activity 1 pt had to stand and wash her hands at sink for 2 minutes after using bathroom pt had no LOB and was steady . Static Sitting Balance Static Sitting-Balance Support Feet supported Static Sitting-Level of Assistance Independent Static Sitting-Comment/Number of Minutes no LOB while sitting up at EOB . Static Standing Balance Static Standing-Balance Support Left upper extremity supported;Right upper extremity supported;With device (rolling walker) Static Standing-Level of Assistance Contact guard Dynamic Standing Balance Dynamic Standing-Balance Support With device;Unilateral upper extremity supported Dynamic Standing-Balance Lateral lean;Forward lean;Reaching for objects;Reaching across midline (reaching down to floor to slat pickler cones off the floor) Dynamic Standing Balance-Level of Assistance Contact guard Dynamic Standing-Comments no LOB Ambulation Ambulation Yes Ambulation 1 Surface 1 Level tile Device 1 Rolling walker Assistance 1 Contact guard Quality of Gait 1 pt did better today with keeping rolling walker closer to her body so pt is walking within base of rolling walker instead of pt flexed forward at trunk pushing rolling walker too far out in front of her . Comments/Distance (ft) 1 14ft x 1 , 40 ft x 1 60 ft x 1 Bed Mobility Bed Mobility Yes Bed Mobility 1 Bed Mobility From 1 Supine Bed Mobility Type 1 To Bed Mobility to 1 Short sit (HOB elevated to 20 degrees) Level of Assistance 1 Minimum assistance;Minimal tactile cues Bed Mobility Comments 1 25% tactile cues to assist pt with sitting upright at EOB . Transfers Transfer Yes Transfers 2 Transfer From 2 Sit Transfer Type 2 To and from Transfer to 2 Stand Technique 2 Sit to stand;Stand to sit Transfer Device 2 rolling walker Transfer Level of Assistance 2 Contact guard Trials/Comments 2 15% tactile cues to assist pt with standing upright or making sure she does safe hand placement Transfers 3 Transfer From 3 Bed Transfer Type 3 To Transfer to 3 Chair with arms Technique 3 Lateral (sidestepping and stepping backwards) Transfer Device 3 rolling walker Transfer Level of Assistance 3 Contact guard Transfers 4 Transfer From 4 Stand Transfer Type 4 To Transfer to 4 Sit;Toilet Technique 4 Stand to sit Transfer Device 4 rolling walker Transfer Level of Assistance 4 Minimum assistance;Minimal tactile cues Trials/Comments 4 25% tactile cues to assist pt to control descent when sitting down. Other Activity Other Activity 2 Channel Specialist left pt in bedside chair with her chair alarm on , verse writer informed nursing that pt's chair alarm is not working well when engaged and doing the test to make sure it goes off . Call light within reach of pt Plan PT Discharge Recommendations jail facility placement Goals: Multi-Disciplinary Problems (from Physical Therapy) Active Problems Problem: PT Misc Start Date: 04/29/23 Goal Start Date Expected End Date End Date Patient to demonstrate the ability to complete all bed mobility independently 04/29/23 05/13/23 -- Goal Details: Progress HOB to flat Goal Start Date Expected End Date End Date Patient to demonstrate the ability to complete all transfers independently with use of RW as needed 04/29/23 05/13/23 -- Goal Start Date Expected End Date End Date Patient to demo the ability to ambulate 50 ft with SBA and use of RW as needed 04/29/23 05/13/23 -- Goal Start Date Expected End Date End Date Patient to maintain balance throughout all functional tasks 04/29/23 05/13/23 -- Goal Start Date Expected End Date End Date Patient to participate in BLE exercise to improve strength and limit effects of immobility 04/29/23 05/13/23 -- 05/04/23 1500 6 Clicks (Mobility) Help from another person turning from your back to your side while in a flat bed without using bedrails 3 (more content not included)...[facility]08-12-2023 Note Still no decision from husbands top 2 SNF choices. Met with at bedside and advised him of 2 accepting SNF's. chose [employer] [facility] [employer] [facility]. Sent updates and asked them to start precert. Provided w/ Tania info. [facility]08-12-2023 Note Attestation signed by Gaby Sanchez MD at 05/04/2023 11:54 AM I personally saw and examined the patient on the same date of service as resident/fellow Dr Ledezma. I discussed the findings and therapeutic plan with the resident/fellow Dr Ledezma. I agree with the documentation, except for any edits/updates below. Teaching Physician's Revisions: Kiara is a longstanding patient of mine; she did not recognize me this morning and does not know who I am. She is not oriented to place, time or person. She is asymptomatic from a cardiac standpoint. She is hemodynamically and electrically stable. Given comorbidities, particularly mental status, will defer invasive cardiac testing at this time. Continue to treat medically; optimal medical therapy for coronary artery disease and heart failure with reduced ejection fraction. She is to follow-up with the [place] cardi[facility] office in [place]. Gaby Sanchez MD, MPH, [facility], [facility], [facility] Interventional Cardiology Pager Email: [email or web address] Subjective The patient was seen and examined at bedside this morning. She continues to remain disoriented this morning. She denies any complaints including no chest pain, shortness of breath, abdominal pain, nausea/vomiting, arm pain, fevers, chills. Objective Patient Vitals for the past 24 hrs: BP Temp Temp src Pulse Resp SpO2 Weight 05/04/23 0838 129/86 36.2 ???C (97.2 ???F) Temporal 89 22 92 % -- 05/04/23 0425 121/53 36.2 ???C (97.2 ???F) Temporal 81 14 91 % 85.6 kg (188 lb 11.4 oz) 05/04/23 0100 -- 36.1 ???C (97 ???F) Temporal 91 14 92 % -- 05/03/23 1940 123/83 -- Temporal 86 16 95 % -- 05/03/23 1220 119/54 36.1 ???C (97 ???F) Temporal 75 16 95 % -- Physical Exam Constitutional: Appearance: appears chronically ill. HENT: Head: Atraumatic. Cardiovascular: Rate and Rhythm: Normal rate and regular rhythm. Heart sounds: Normal heart sounds. Abdominal: General: Bowel sounds are normal. Musculoskeletal: General: Normal range of motion. Cervical back: Neck supple. Skin: General: Skin is warm. Neurological: General: No focal deficit present. Mental Status: She is alert. Mental status is at baseline. Psychiatric: Mood and Affect: appears altered Lab Results Component Value Date NA 138 05/04/2023 K 4.0 05/04/2023 CL 108 (H) 05/04/2023 ANIONGAP 10 05/04/2023 BUN 18 05/04/2023 CREATININE 0.82 05/04/2023 CALCIUM 9.4 05/04/2023 MG 1.5 (L) 05/04/2023 Lab Results Component Value Date BILITOT 0.3 04/26/2023 BILIDIR 0.1 04/26/2023 ALKPHOS 63 04/26/2023 AST 41 (H) 04/26/2023 ALT 17 04/26/2023 PROT 5.6 (L) 04/26/2023 ALBUMIN 3.0 (L) 04/26/2023 Lab Results Component Value Date WBC 8.84 05/04/2023 RBC 4.60 05/04/2023 HGB 13.0 05/04/2023 HCT 39.7 05/04/2023 MCV 86.3 05/04/2023 MCH 28.3 05/04/2023 MCHC 32.7 05/04/2023 RDW 13.7 05/04/2023 NEUTOPHILPCT 60.6 04/26/2023 LYMPHOPCT 23.0 04/26/2023 MONOPCT 11.5 04/26/2023 EOSPCT 3.3 04/26/2023 BASOPCT 0.6 04/26/2023 NEUTROABS 4.37 04/26/2023 LYMPHSABS 1.66 04/26/2023 MONOSABS 0.83 04/26/2023 EOSABS 0.24 04/26/2023 BASOSABS 0.04 04/26/2023 PLT 383 05/04/2023 NRBC 0.0 04/26/2023 Encounter Date: 04/26/23 ECG 12 lead Result Value Ventricular Rate 83 Atrial Rate 83 MI Interval 178 QRS DURATION 88 QT Interval 414 QTC CALCULATION(BAZETT) 486 P Alva 64 R-Alva -19 T Wave Alva 152 Impression Sinus rhythm with occasional Premature ventricular complexes Septal infarct , age undetermined Prolonged QT interval Abnormal ECG When compared with ECG of 16-MAR-2022 12:13, Premature ventricular complexes are now Present T wave inversion no longer evident in Anterolateral leads QT has lengthened Confirmed by Vera MARTINEZ, L.S. (2) on 04/26/2023 4:09:15 PM TTE 02/2022 Left Ventricle: The left ventricle is mildly enlarged. Global left ventricular systolic function is mildly reduced. The EF is 45 % visually. Left ventricular wall thickness is mildly increased. Regional wall motion abnormalities (see diagram). Concentric left ventricular hypertrophy. Right Ventricle: The right ventricle is normal in size. Mildly reduced right ventricular systolic function. Unable to assess right sided pressures due to lack of measurable tricuspid regurgitation. Left Atrium: The left atrium is normal in size. Overall Conclusions: Due to suboptimal imaging Lumason contrast was administered for opacification and better delineation of endocardial borders. TTE 04/26/2023 Left Ventricle: The left ventricle appears normal in size. Global left ventricular systolic function is severely reduced. The EF is 30 % visually. Left ventricular wall thickness is normal. Right Ventricle: The right ventricle a (more content not included)...[facility]08-12-2023 NoteHospital Medicine Daily Progress Note - 05/04/2023 11:00 AM; Room: [facility] Admission: 04/26/2023 1:50 PM; Length of stay: 8 days THE HOSPITALIST TEAM PREFERS TO USE [employer] CHAT FOR COMMUNICATION 7AM-7PM. IF I DO NOT RESPOND WITHIN 15 MINUTES, PLEASE PAGE ME/CALL THROUGH THE CABLE SPLICER APPRENTICE. FROM 7PM-7AM, PLEASE PAGE [phone](COVR) Code Status: Full Code Discharge Destination: long term facility Discharge planning: Pending SNF Overview Patient is seen for evaluation and management of NSTEMI. Subjective Patient is calm and less agitated. Patient is confused at her baseline. Denies chest pain, SOB. Physical Exam Visit Vitals BP 129/86 Pulse 89 Temp 36.2 ???C (97.2 ???F) (Temporal) Resp 22 Intake/Output Summary (Last 24 hours) at 05/04/2023 1100 Last data filed at 05/04/2023 1000 Gross per 24 hour Intake 240 ml Output 300 ml Net -60 ml Physical Exam Cardiovascular: Rate and Rhythm: Normal rate and regular rhythm. Pulmonary: Effort: Pulmonary effort is normal. Breath sounds: Normal breath sounds. Abdominal: General: Abdomen is flat. Palpations: Abdomen is soft. Neurological: Mental Status: She is alert. Comments: Oriented x1 Estimated body mass index is 30.46 kg/m??? as calculated from the following: Height as of this encounter: 1.676 m (5' 6 ). Weight as of this encounter: 85.6 kg (188 lb 11.4 oz). Active Inpatient Problems Principal Problem: NSTEMI (non-ST elevated myocardial infarction) ([facility]/HCC) Active Problems: Acute cystitis without hematuria Hypoglycemia Traumatic rhabdomyolysis ([facility]/HCC) Acute on chronic systolic (congestive) heart failure ([facility]/HCC) Assessment and Plan # NSTEMI: # Chronic HrEF with worsening EF 30%: - Completed heparin for 48 hours. - Lopressor changed to Toprol. Added Entresto, spironolactone and Farxiga. - Continue aspirin, Plavix and Lipitor. - Cardio recommended conservative therapy at this point with outpatient follow up. # Syncope, suspected due to hypoglycemia: - Echo showed no valvular disease. # HypoMg and hypokalemia, improving: - We will replace with oral magnesium 400 mg bid. # Traumatic rhabo, resolved. # CAD s/p CABG in 2016: - Continue aspirin, Plavix and Lipitor. Lopressor changed to Toprol 25 mg due to reduced EF. # IDDM2 with hypoglycemia, improving: - A1C is 9. - Reduce Lantus to 20 U BID. - Monitor glucose closely. # Dementia with behavioral disturbances, improving: - CT brain at OSH showed no acute event. - UA showed no UTI. - Seroquel 25 mg BID. - Psych is following. Nutrition Screen VTE Prophylaxis: Lovenox Scheduled Meds aspirin, 81 mg, oral, Daily atorvastatin, 80 mg, oral, Nightly clopidogrel, 75 mg, oral, Daily dapagliflozin propanediol, 10 mg, oral, Daily enoxaparin, 40 mg, subcutaneous, q24h KAYLYN insulin aspart, 0-20 Units, subcutaneous, TID with meals insulin glargine, 20 Units, subcutaneous, BID magnesium oxide, 400 mg, oral, BID metoprolol succinate XL, 50 mg, oral, Daily QUEtiapine, 25 mg, oral, BID sacubitril-valsartan, 1 tablet, oral, BID spironolactone, 25 mg, oral, Daily Pertinent Investigations Hematology: Results from last 7 days Lab Units 05/04/2341305/03/23 0525 WBC AUTO 10*3/uL 8.84 7.80 HEMOGLOBIN g/dL 13.0 13.0 HEMATOCRIT % 39.7 40.6 MCV fL 86.3 87.1 PLATELETS AUTO 10*3/uL 383 298 Chemistry: Results from last 7 days Lab Units 05/04/234 05/02/23 0329 05/01/23 0526 SODIUM mmol/L 138 141 138 POTASSIUM mmol/L 4.0 3.9 4.1 CHLORIDE mmol/L 108* 108* 108* CO2 mmol/L 24 26 23 BUN mg/dL 18 24 26* CREATININE mg/dL 0.82 0.88 0.76 GLUCOSE mg/dL 75 197* 204* MAGNESIUM mg/dL 1.5* 1.5* 1.3* CALCIUM mg/dL 9.4 9.3 9.1 No lab exists for component: AFIO2, APHT, APCOT, APOT, ATCO2, CK, ALB, IBILI Results from last 7 days Lab Units 05/04/23 0744 05/03/23 2004 05/03/23 1630 05/03/23 1127 05/03/23 0714 05/02/23 210 POCT GLUCOSE mg/dL 84 87 366* 236* 161* 204* Historical Values: (Includes values prior to this admission) Lab Results Component Value Date TSH 1.24 04/29/2023 HDL 34 04/26/2023 LDL 51 04/26/2023 Lab Results Component Value Date [id number] 512 04/29/2023 Imaging XR hip left 2 or 3 views Narrative: XR HIP 2 OR 3 VW LEFT 05/01/2023 11:54 AM CLINICAL INDICATIONS: Left hip pain. COMPARISON: 2022. FINDINGS: Portable AP pelvis, AP left hip, and frog-leg lateral left hip radiographs obtained. Osteoarthritic changes are present at the hip joints bilaterally. Bony pelvis otherwise appears intact without displaced fracture. Multiple phleboliths are present within the lower pelvis. Deformity of the contralateral right greater trochanter again noted. Proximal left femur appears intact. No acute fracture nor destructive bone lesion is identified. Dense vascular calcifications again seen. Impression: 1. No fracture nor dislocation left hip. 2. Osteoarthritis left hip. (more content not included)...[facility]08-12-2023 NoteOccupational Therapy Occupational Therapy Treatment Note Patient Name: Kiara Blanc Patient Date of : 1955 Today's Date: 05/04/23 Time in: 1034 Time Out: 1108 Total Time: 34 Active Ambulatory Problems Diagnosis Date Noted Coronary artery disease involving [place] coronary artery of [place] heart without angina pectoris 07/18/2022 Hyperlipidemia, mixed 07/18/2022 Edema of lower extremity 07/18/2022 Chronic diastolic heart failure (CMS/HCC) 07/18/2022 Tobacco dependence 07/18/2022 Resolved Ambulatory Problems Diagnosis Date Noted No Resolved Ambulatory Problems No Additional Past Medical History OT Received On 05/04/23 Subjective Pt was cooperative however, not very talkative Objective 1 Pt was up in chair at EOS with alarm on. Objective 2 OT Discharge Recommendation Residential Facility OT Equipment Recommendations TBD General Pain 0 Pain Location No pain behaviors noted to L hip this day Pain Comments Precautions: chair alarm UE WB status bilateral, WBAT LE WB status bilateral, WBAT Cognition Orientation Pt was oriented to person and birthday, month and year however, did not know the president or location (hospital or city) Attention Span Requires cues to stay on task Memory impaired Sequencing impaired Problem Solving impaired Other Channel Specialist questions further cognitive issues has pt had issues locating the bathroom, the sink and forgot were to put garbage. At EOS verse writer placed multiple grooming items in front of pt and asked her to point to each item as verse writer named it. Pt only pointed to the correct item 2/10 times. (Likey accidentally as pt pointed to the same item multiple times) General Assessment Vision Pt stated that her glasses are not here. Hearing Intact Communication Intact Skin: Red areas noted on buttocks Edema: No issues noted Balance: Sitting Static Balance: Balance support RUE support, LUE support, Unilateral UE Support, No UE Support, Feet Supported Level of Assist: Supervision/set -up Comments: Sitting Dynamic Balance: Balance support RUE support, LUE support, Unilateral UE Support, No UE Support, Feet Supported Level of Assist: Supervision/set -up Comments: While sitting on toilet, during hygiene Standing Static Balance: Balance support R UE support, L UE support, Unilateral UE support, No UE support, Rolling Walker Level of Assist: Supervision/set -up Comments: While standing for brief management, rita care and while standing at sink for grooming tasks Activities of Daily Living LB dressing: Level of Assistance: Moderate assist Where Assessed: Standing , No equipment used Comments: Pt stood with use of walker to change brief. Pt required assist to pull out operator hips even after given verbal cues Toileting: Level of Assistance: Min A Where Assessed: Toilet, Rolling Walker, Grab Bars, toilet Comments: Pt required assist for brief, assist for thoroughness of rita care and multiple cues for completing rita care as pt wanted to stop cleaning herself even though she was still soiled. Transfers: Sit to Stand: Minimal Assist , Rolling Walker Comments: Multiple times throughout session Stand to Sit: Minimal Assist , None Comments: Cues to control sit To chair: Minimal Assist , Rolling Walker Comments: With hands on for safety and with verse writer guiding walker as pt was unable to follow instructions To toilet: Minimal Assist , Rolling Walker Comments: With hands on for safety and with verse writer guiding walker as pt was unable to follow instructions/locate bathroom Functional Ambulation: Pt ambulated in room with use of walker with hands on for safety and with verse writer to guide walker as pt had difficulty locating bathroom and sink even with verbal cues and verse writer pointing in the direction. Tone: All extremities WNL Right Upper Extremity: normal Left Upper Extremity: normal Right Lower Extremity: normal Left Lower Extremity: normal Tone Comments: OT Assessment: Pt is progressing toward goals but would benefit from continued therapy to increase balance and safety during mobility and to increase independence with ADL's to return to PLOF Multi-Disciplinary Problems (from Occupational Therapy) Active Problems Problem: Balance Start Date: 04/29/23 Goal Start Date Expected End Date End Date LTG - Patient will maintain dynamic sit and static stand balance to allow for safe mobility 04/29/23 05/27/23 -- Problem: Bathing Start Date: 04/29/23 Goal Start Date Expected End Date End Date LTG - Patient will utilize adaptive techniques to bathe body with minimal assistance 04/29/23 05/27/23 -- Problem: Dressings Lower Extremities Start Date: 04/29/23 Goal Start Date Expected End Date End Date LTG - Patient will dress lower body with minimal assistance 04/29/23 05/27/23 -- Problem: Dressing Upper Extremities Start Date: 04/29/23 Goal Start Date Expected End Date E (more content not included)...[facility]08[facility]11[facility] filled out by . Staffing Specialist (KAREEM) gave 's contact information, [facility] left voicemail. SW informed that they are unable to fully approve or begin precert without questionnaire being completed. [facility] informed SW that they are out of network, but are able to accept if patient has 5 denied facilities. KAREEM informed then that there are not 5 denied facilities. [facility] still reviewing. [facility] requested additional notes from patient's stay, Kareem sent via [employer]. [facility] requested to reach out to Shani [phone] pertaining to questions over the weekend. OTM will continue to follow.[facility]08-11-2023 Note Hospital Medicine Daily Progress Note - 05/03/2023 12:09 PM; Room: [address] [place] [address] Admission: 04/26/2023 1:50 PM; Length of stay: 7 days THE HOSPITALIST TEAM PREFERS TO USE [employer] CHAT FOR COMMUNICATION 7AM-7PM. IF I DO NOT RESPOND WITHIN 15 MINUTES, PLEASE PAGE ME/CALL THROUGH THE CABLE SPLICER APPRENTICE. FROM 7PM-7AM, PLEASE PAGE [phone](COVR) Code Status: Full Code Discharge Destination: long term facility Discharge planning: Cath today Overview Patient is seen for evaluation and management of NSTEMI. Subjective Patient is calm and less agitated. Patient is confused at her baseline. Denies chest pain, SOB. Physical Exam Visit Vitals BP 127/89 Pulse 86 Temp 36.1 ???C (97 ???F) (Temporal) Resp 10 Intake/Output Summary (Last 24 hours) at 05/03/2023 1209 Last data filed at 05/02/2023 2200 Gross per 24 hour Intake 750 ml Output 200 ml Net 550 ml Physical Exam Cardiovascular: Rate and Rhythm: Normal rate and regular rhythm. Pulmonary: Effort: Pulmonary effort is normal. Breath sounds: Normal breath sounds. Abdominal: General: Abdomen is flat. Palpations: Abdomen is soft. Neurological: Mental Status: She is alert. Comments: Oriented x1 Estimated body mass index is 30.42 kg/m??? as calculated from the following: Height as of this encounter: 1.676 m (5' 6 ). Weight as of this encounter: 85.5 kg (188 lb 7.9 oz). Active Inpatient Problems Principal Problem: NSTEMI (non-ST elevated myocardial infarction) ([facility]) Active Problems: Acute cystitis without hematuria Hypoglycemia Traumatic rhabdomyolysis ([facility]) Acute on chronic systolic (congestive) heart failure ([facility]) Assessment and Plan # NSTEMI: # Chronic HrEF with worsening EF 30%: - Completed heparin for 48 hours. - Lopressor changed to Toprol. Added Entresto, spironolactone and Farxiga. - Continue aspirin, Plavix and Lipitor. - Cardio will perform cath today under anesthesia. # Syncope, suspected due to hypoglycemia: - Echo showed no valvular disease. # HypoMg and hypokalemia, improving: - We will replace with oral magnesium 400 mg bid. # Traumatic rhabo, resolved. # CAD s/p CABG in 2016: - Continue aspirin, Plavix and Lipitor. Lopressor changed to Toprol 25 mg due to reduced EF. # IDDM2 with hypoglycemia, improving: - A1C is 9. - Reduce Lantus to 20 U BID. - Monitor glucose closely. # Dementia with behavioral disturbances, improving: - CT brain at OSH showed no acute event. - UA showed no UTI. - Seroquel 25 mg BID. - Psych is following. Nutrition Screen VTE Prophylaxis: Lovenox Scheduled Meds aspirin, 81 mg, oral, Daily atorvastatin, 80 mg, oral, Nightly clopidogrel, 75 mg, oral, Daily dapagliflozin propanediol, 10 mg, oral, Daily enoxaparin, 40 mg, subcutaneous, q24h KAYLYN insulin aspart, 0-20 Units, subcutaneous, TID with meals insulin glargine, 20 Units, subcutaneous, BID magnesium oxide, 400 mg, oral, BID metoprolol succinate XL, 50 mg, oral, Daily QUEtiapine, 25 mg, oral, BID sacubitril-valsartan, 1 tablet, oral, BID spironolactone, 25 mg, oral, Daily Pertinent Investigations Hematology: Results from last 7 days Lab Units 05/03/23 0525 05/01/23 0526 WBC AUTO 10*3/uL 7.80 7.98 HEMOGLOBIN g/dL 13.0 13.0 HEMATOCRIT % 40.6 39.4 MCV fL 87.1 84.9 PLATELETS AUTO 10*3/uL 298 341 Chemistry: Results from last 7 days Lab Units 05/02/23 0329 05/01/23 0526 04/30/23 0626 SODIUM mmol/L 141 138 144 POTASSIUM mmol/L 3.9 4.1 3.7 CHLORIDE mmol/L 108* 108* 108* CO2 mmol/L 26 23 29 BUN mg/dL 24 26* 22 CREATININE mg/dL 0.88 0.76 0.82 GLUCOSE mg/dL 197* 204* 165* MAGNESIUM mg/dL 1.5* 1.3* 1.5* CALCIUM mg/dL 9.3 9.1 9.3 Results from last 7 days Lab Units 04/26/23 1735 AST U/L 41* ALT U/L 17 ALK PHOS U/L 63 BILIRUBIN TOTAL mg/dL 0.3 BILIRUBIN DIRECT mg/dL 0.1 Results from last 7 days Lab Units 05/03/23 1127 05/03/23 0714 05/02/23 2107 05/02/23 1627 05/02/23 1139 05/02/23 0711 POCT GLUCOSE mg/dL 236* 161* 204* 372* 338* 144* Historical Values: (Includes values prior to this admission) Lab Results Component Value Date TSH 1.24 04/29/2023 HDL 34 04/26/2023 LDL 51 04/26/2023 Lab Results Component Value Date [id number] 512 04/29/2023 Imaging XR hip left 2 or 3 views Narrative: XR HIP 2 OR 3 VW LEFT 05/01/2023 11:54 AM CLINICAL INDICATIONS: Left hip pain. COMPARISON: 2022. FINDINGS: Portable AP pelvis, AP left hip, and frog-leg lateral left hip radiographs obtained. Osteoarthritic changes are present at the hip joints bilaterally. Bony pelvis otherwise appears intact without displaced fracture. Multiple phleboliths are present within the lower pelvis. Deformity of the contralateral right greater trochanter again noted. Proximal left femur appears intact. No acute fracture nor destructive bone lesion is identified. Dense vascular calcifications again seen. Impression: 1. No fracture nor dislo (more content not included)...[facility]08-11-2023 NotePhysical Therapy: Refusal of services note Wednesday May 03, 2023 Pt had been cleared medically to receive therapy services . Upon entering the room pt was yelling into her phone and out into hallway that she needed something to drink , when verse writer entered the room verse writer checked for pt on getting her something to drink with her nurse. Brookisng informed verse writer that pt was NPO to prepare for a test today heart cath. When verse writer told pt why she could not have any water because of the testing pt became very upset and refused to partipate in therapy services . Channel Specialist wished pt the best of luck on her procedure today and made sure bed was in lowest position, and bed alarm on and that pt had her call light . Attempted time : 10:08-10:13[facility] Note Attestation signed by Luis Alvarez DO at 05/03/2023 3:17 PM Agree; zyprexa on standby for agitation/irritability/psychosis. Psychiatry Service Progress Note Identifying Data Patient Name: Kiara Blanc MRN / CSN: [id number] Date of / Age: 6 1955 / 68 y.o. / female Encounter Date: 05/03/23 Diagnosis: The primary encounter diagnosis was NSTEMI (non-ST elevated myocardial infarction) (CMS/HCC). A diagnosis of Acute on chronic systolic (congestive) heart failure (CMS/HCC) was also pertinent to this visit. Summary Kiara Blanc is a 68 y.o. female who presented on 04/26/2023 to [facility] from [facility] ([facility]) for acute NSTEMI. Psychiatry was consulted on 04/29/2023 for dementia and delirium. Medical Course: Patient is a 68-year-old female with an unknown psychiatric history and medical history of CAD, HLD, CAD, chronic diastolic HF w/ NYHA Class II, diabetes mellitus presented to [facility] as a direct transfer for cardiology service evaluation for acute NSTEMI. She was admitted initially at [facility] ([facility]) on 04/25/2023 after she was found lying on the floor in between the wall and the couch. On EMS arrival, patient was altered, had extensive stool over her entire body, and dehydrated. She underwent trauma work-up which was within normal limits. Patient was non-participatory in history and did not offer any meaningful information. She did not remember any events. EMS concerned that patient did not provide any additional care for her and refuses to clean or help her at home. Over at the facility on arrival, she was noted to have rhabdommyolysis, suspected UTI, and hypoglycemia and initial troponin was slightly elevated. She received IV resuscitation, started on empiric Rocephin and troponin curve was trended. Patient denied any chest pain or any symptoms associated with her symptoms. CT head, C-spine, CXR, pelvic XR were negative. EKG showed sinus tachycardia with no other acute abnormalities. Lab studies showed minimal leukocytosis (WBC 11.5). Urine culture was positive for grover tropicalis. On 04/26/23, she had elevated troponin level increased from 100 to over 1000. She was subsequently transferred to [facility] for cardiac evaluation. She was started on aspirin and heparin drip was commenced. Patient had an episode of hypoglycemia as low as 30 during OSH hospitalization, which subsequently led to start on a dextrose drip. A1C 9.1. Cardiology held off on cardiac catheterization and will wait until patient is stable from mental standpoint and low concern for ongoing infection. PT/OT recommends SNF placement. SW is currently working on pre-certification. 05/01/23 - Patient complained of left hip pain. Hip X-ray showed no dislocation fracture and osteoarthritis left hip. Psychiatric Course: Psychiatry was consulted on 04/29/2023 for dementia and delirium. When asked about the incident, she only could remember that she tripped over and fell down. She states she has previously been hospitalized multiple times due to falls. Denies any head trauma or seizure episodes. She currently lives with and pets. She does not have any kids. Per nursing staff, patient has had an episode of agitation. One time Haldol 1 mg was given, and Seroquel 25 mg twice daily PRN by Dr. Quan was administered from 04/28/23. Per previous report, patient has a history of noncompliance to her medications. She has a very difficult poor living situation and EMS has called APS multiple times for this patient in the past. Able to talk to , Mr. Cameron Blanc (ph: [phone]) at the patient's bedside. He called EMS when he found her after coming back from work. He mentions she frequently falls at home and has been hospitalized many times. Per , she refuses to use walker despite it was recommended. 04/29/23 - continue Seroquel 25 mg PO BID PRN 04/30/23 - switch Seroquel 25 mg PO BID PRN to scheduled Seroquel 25 mg PO BID 05/01/23 - continue scheduled Seroquel 25 mg PO BID 05/02/23 - Social work has put in referrals to [facility] 1st choice; [facility]' 2nd choice as well as alternate choices had no preference of order: [facility]; [facility]; [facility] and [facility]. Awaiting their review. 05/03/23 - start ZyPREXA 2.5 mg BID PRN Subjective Overnight Events: Per nursing staff, patient was agitated and combative yesterday during the day, but remained calm throughout the night with no overnight events. PRN Medications: none given Zyprexa discontinued on 04/30/23. Patient: Patient was evaluated at bedside this morning. She was asleep and difficult to awake. She was not in restraints, and was not in them overnight. Unable to f (more content not included)...[facility]08-10-2023 Note Per RN patient is doing better today and is out of mitts and any form of restraints. Patient has not pulled at any of her leads or lines today. Per RN and WRITER TECH[employer]ICAL PUBLICATION[employer] advised them that he did remember now that a physician had given her a dx of dementia at some point. At request of the team they feel patient could be medically ready soon. Referrals made to [facility] 1st choice; [facility]' 2nd choice as well as alternate choices had no preference of order: [facility]; [facility]; [facility] and [facility]. Awaiting their review.[facility]08-10-2023 NotePhysical Therapy Physical Therapy Treatment Patient Name: Kiara Blanc : 1955 Today's Date: 05/02/2023 Patient Active Problem List Diagnosis Coronary artery disease involving [place] coronary artery of [place] heart without angina pectoris Hyperlipidemia, mixed Edema of lower extremity Chronic diastolic heart failure (CMS/HCC) Tobacco dependence NSTEMI (non-ST elevated myocardial infarction) (CMS/HCC) Acute cystitis without hematuria Hypoglycemia Traumatic rhabdomyolysis (CMS/HCC) Acute on chronic systolic (congestive) heart failure (CMS/HCC) Time : 14:10-14:40 05/02/23 1630 PT Last Visit PT Received On 05/02/23 General Subjective Pt per nursing was more confused today and nursing wanted pt to stay in bed after her therapy session. Nursing also stated that pt would not let them clean her up earlier , when verse writer entered the room pt was R sidelying and had a soiled brief that was half off her , verse writer told pt she had to get cleaned up and could not sit in her BM , pt willing to get cleaned up pt kept telling verse writer there are holes in the bathroom and was wondering again where her dog was . Cognition Orientation Level Disoriented to time;Disoriented to situation;Disoriented to place (pts came in at end of treatment session and informed verse writer that pt was diagnosed by some doctor he did not remember what doctor or when with dementia. Pt thought her turkey sandwich today tasted and was swedish food) Static Sitting Balance Static Sitting-Balance Support Feet supported Static Sitting-Level of Assistance Close supervision Static Standing Balance Static Standing-Balance Support Right upper extremity supported;Left upper extremity supported;With device Static Standing-Level of Assistance Minimum assistance Bed Mobility Bed Mobility Yes Bed Mobility 1 Bed Mobility From 1 Supine Bed Mobility Type 1 To Bed Mobility to 1 Rolling right;Rolling left (for clean up of pt and for replacing taps draw sheet system .) Level of Assistance 1 Contact guard Bed Mobility Comments 1 8 trials Bed Mobility 2 Bed Mobility From 2 Supine Bed Mobility Type 2 To and from Bed Mobility to 2 Short sit Level of Assistance 2 Contact guard Transfers Transfer Yes Transfers 2 Transfer From 2 Sit Transfer Type 2 To and from Transfer to 2 Stand Technique 2 Sit to stand;Stand to sit Transfer Device 2 rolling walker Transfer Level of Assistance 2 Minimum assistance (x2 people secondary to pt's decreased cognition) Other Activity Other Activity 1 pt in bed at end of treatment session with bed in lowest position, call light in place and bed alarm on , eating her lunch . Plan PT Discharge Recommendations jail facility placement Goals: Multi-Disciplinary Problems (from Physical Therapy) Active Problems Problem: PT Misc Start Date: 04/29/23 Goal Start Date Expected End Date End Date Patient to demonstrate the ability to complete all bed mobility independently 04/29/23 05/13/23 -- Goal Details: Progress HOB to flat Goal Start Date Expected End Date End Date Patient to demonstrate the ability to complete all transfers independently with use of RW as needed 04/29/23 05/13/23 -- Goal Start Date Expected End Date End Date Patient to demo the ability to ambulate 50 ft with SBA and use of RW as needed 04/29/23 05/13/23 -- Goal Start Date Expected End Date End Date Patient to maintain balance throughout all functional tasks 04/29/23 05/13/23 -- Goal Start Date Expected End Date End Date Patient to participate in BLE exercise to improve strength and limit effects of immobility 04/29/23 05/13/23 -- 05/02/23 1600 6 Clicks (Mobility) Help from another person turning from your back to your side while in a flat bed without using bedrails 3 Help from another person moving from lying on your back to sitting on the side of a flat bed without using bedrails 3 Help from another person moving to and from a bed to a chair (including a wheelchair) 3 Help from another person standing up from a chair using your arms (e.g. wheelchair or bedside chair) 3 Help from another person to walk in hospital room 3 Help from another person climbing 3-5 steps with a railing 1 Mobility 6 Clicks T-Score 16[facility]08[facility]10[facility]23 Note Physical Therapy Physical Therapy Treatment Patient Name: Kiara Blanc : 1955 Today's Date: 05/02/2023 Patient Active Problem List Diagnosis Coronary artery disease involving [place] coronary artery of [place] heart without angina pectoris Hyperlipidemia, mixed Edema of lower extremity Chronic diastolic heart failure (CMS/HCC) Tobacco dependence NSTEMI (non-ST elevated myocardial infarction) (CMS/HCC) Acute cystitis without hematuria Hypoglycemia Traumatic rhabdomyolysis (CMS/HCC) Acute on chronic systolic (congestive) heart failure (CMS/HCC) Time : 14:10-14:40pm 05/02/23 1630 PT Last Visit PT Received On 05/02/23 General Subjective Pt per nursing was more confused today and nursing wanted pt to stay in bed after her therapy session. Nursing also stated that pt would not let them clean her up earlier , when verse writer entered the room pt was R sidelying and had a soiled brief that was half off her , verse writer told pt she had to get cleaned up and could not sit in her BM , pt willing to get cleaned up pt kept telling verse writer there are holes in the bathroom and was wondering again where her dog was . Cognition Orientation Level Disoriented to time;Disoriented to situation;Disoriented to place (pts came in at end of treatment session and informed verse writer that pt was diagnosed by some doctor he did not remember what doctor or when with dementia. Pt thought her turkey sandwich today tasted and was swedish food) Static Sitting Balance Static Sitting-Balance Support Feet supported Static Sitting-Level of Assistance Close supervision Static Standing Balance Static Standing-Balance Support Right upper extremity supported;Left upper extremity supported;With device Static Standing-Level of Assistance Minimum assistance Bed Mobility Bed Mobility Yes Bed Mobility 1 Bed Mobility From 1 Supine Bed Mobility Type 1 To Bed Mobility to 1 Rolling right;Rolling left (for clean up of pt and for replacing taps draw sheet system .) Level of Assistance 1 Contact guard Bed Mobility Comments 1 8 trials Bed Mobility 2 Bed Mobility From 2 Supine Bed Mobility Type 2 To and from Bed Mobility to 2 Short sit Level of Assistance 2 Contact guard Transfers Transfer Yes Transfers 2 Transfer From 2 Sit Transfer Type 2 To and from Transfer to 2 Stand Technique 2 Sit to stand;Stand to sit Transfer Device 2 rolling walker Transfer Level of Assistance 2 Minimum assistance (x2 people secondary to pt's decreased cognition) Other Activity Other Activity 1 pt in bed at end of treatment session with bed in lowest position, call light in place and bed alarm on , eating her lunch . Plan PT Discharge Recommendations jail facility placement Goals: Multi-Disciplinary Problems (from Physical Therapy) Active Problems Problem: PT Misc Start Date: 04/29/23 Goal Start Date Expected End Date End Date Patient to demonstrate the ability to complete all bed mobility independently 04/29/23 05/13/23 -- Goal Details: Progress HOB to flat Goal Start Date Expected End Date End Date Patient to demonstrate the ability to complete all transfers independently with use of RW as needed 04/29/23 05/13/23 -- Goal Start Date Expected End Date End Date Patient to demo the ability to ambulate 50 ft with SBA and use of RW as needed 04/29/23 05/13/23 -- Goal Start Date Expected End Date End Date Patient to maintain balance throughout all functional tasks 04/29/23 05/13/23 -- Goal Start Date Expected End Date End Date Patient to participate in BLE exercise to improve strength and limit effects of immobility 04/29/23 05/13/23 -- 05/02/23 1600 6 Clicks (Mobility) Help from another person turning from your back to your side while in a flat bed without using bedrails 3 Help from another person moving from lying on your back to sitting on the side of a flat bed without using bedrails 3 Help from another person moving to and from a bed to a chair (including a wheelchair) 3 Help from another person standing up from a chair using your arms (e.g. wheelchair or bedside chair) 3 Help from another person to walk in hospital room 3 Help from another person climbing 3-5 steps with a railing 1 Mobility 6 Clicks T-Score 16[facility]08-10-2023 Note Hospital Medicine Daily Progress Note - 05/02/2023 12:19 PM; Room: [facility]313-01 Admission: 04/26/2023 1:50 PM; Length of stay: 6 days THE HOSPITALIST TEAM PREFERS TO USE [employer] CHAT FOR COMMUNICATION 7AM-7PM. IF I DO NOT RESPOND WITHIN 15 MINUTES, PLEASE PAGE ME/CALL THROUGH THE CABLE SPLICER APPRENTICE. FROM 7PM-7AM, PLEASE PAGE [phone](COVR) Code Status: Full Code Discharge Destination: long term facility Discharge planning: Pending SNF placement Overview Patient is seen for evaluation and management of NSTEMI. Subjective Patient was agitated last evening and given Zyprexa. Patient is currently calm and confused at her baseline. Denies chest pain, SOB. Physical Exam Visit Vitals BP (!) 147/97 Pulse 86 Temp 36.1 ???C (97 ???F) (Temporal) Resp 21 Intake/Output Summary (Last 24 hours) at 05/02/2023 1219 Last data filed at 05/02/2023 0530 Gross per 24 hour Intake 595 ml Output 300 ml Net 295 ml Physical Exam Cardiovascular: Rate and Rhythm: Normal rate and regular rhythm. Pulmonary: Effort: Pulmonary effort is normal. Breath sounds: Normal breath sounds. Abdominal: General: Abdomen is flat. Palpations: Abdomen is soft. Neurological: Mental Status: She is alert. Comments: Oriented x1 Estimated body mass index is 30.64 kg/m??? as calculated from the following: Height as of this encounter: 1.676 m (5' 6 ). Weight as of this encounter: 86.1 kg (189 lb 13.1 oz). Active Inpatient Problems Principal Problem: NSTEMI (non-ST elevated myocardial infarction) ([facility]) Active Problems: Acute cystitis without hematuria Hypoglycemia Traumatic rhabdomyolysis ([facility]) Acute on chronic systolic (congestive) heart failure ([facility]) Assessment and Plan # NSTEMI: # Chronic HrEF with worsening EF 30%: - Completed heparin for 48 hours. - Lopressor changed to Toprol. Added Entresto, spironolactone and Farxiga. - Continue aspirin, Plavix and Lipitor. - Cardio recommended medical treatment. # Syncope, suspected due to hypoglycemia: - Echo showed no valvular disease. # HypoMg and hypokalemia, improving: - We will replace with oral magnesium 400 mg bid. # Traumatic rhabo, resolved. # CAD s/p CABG in 2016: - Continue aspirin, Plavix and Lipitor. Lopressor changed to Toprol 25 mg due to reduced EF. # IDDM2 with hypoglycemia, improving: - A1C is 9. - Reduce Lantus to 20 U BID. - Monitor glucose closely. # Dementia with behavioral disturbances, improving: - CT brain at OSH showed no acute event. - UA showed no UTI. - Seroquel 25 mg BID. - Psych is following. Pending SNF placement. Nutrition Screen VTE Prophylaxis: Lovenox Scheduled Meds aspirin, 81 mg, oral, Daily atorvastatin, 80 mg, oral, Nightly clopidogrel, 75 mg, oral, Daily dapagliflozin propanediol, 10 mg, oral, Daily enoxaparin, 40 mg, subcutaneous, q24h KAYLYN insulin aspart, 0-20 Units, subcutaneous, TID with meals insulin glargine, 20 Units, subcutaneous, BID lactated Ringer's, , , magnesium oxide, 400 mg, oral, BID metoprolol succinate XL, 50 mg, oral, Daily QUEtiapine, 25 mg, oral, BID sacubitril-valsartan, 1 tablet, oral, BID spironolactone, 25 mg, oral, Daily Pertinent Investigations Hematology: Results from last 7 days Lab Units 05/01/23 0526 04/29/23 0555 WBC AUTO 10*3/uL 7.98 7.42 HEMOGLOBIN g/dL 13.0 13.1 HEMATOCRIT % 39.4 38.2 MCV fL 84.9 83.2 PLATELETS AUTO 10*3/uL 341 305 Chemistry: Results from last 7 days Lab Units 05/02/23 0329 05/01/23 0526 04/30/23 0626 SODIUM mmol/L 141 138 144 POTASSIUM mmol/L 3.9 4.1 3.7 CHLORIDE mmol/L 108* 108* 108* CO2 mmol/L 26 23 29 BUN mg/dL 24 26* 22 CREATININE mg/dL 0.88 0.76 0.82 GLUCOSE mg/dL 197* 204* 165* MAGNESIUM mg/dL 1.5* 1.3* 1.5* CALCIUM mg/dL 9.3 9.1 9.3 Results from last 7 days Lab Units 04/26/23 1735 AST U/L 41* ALT U/L 17 ALK PHOS U/L 63 BILIRUBIN TOTAL mg/dL 0.3 BILIRUBIN DIRECT mg/dL 0.1 Results from last 7 days Lab Units 05/02/23 1139 05/02/23 0711 05/01/23200605/01/23 1131 05/01/23 0742 04/30/232015 POCT GLUCOSE mg/dL 338* 144* 241* 174* 211* 202* Historical Values: (Includes values prior to this admission) Lab Results Component Value Date TSH 1.24 04/29/2023 HDL 34 04/26/2023 LDL 51 04/26/2023 Lab Results Component Value Date IIGAXNOY05 512 04/29/2023 Imaging XR hip left 2 or 3 views Narrative: XR HIP 2 OR 3 VW LEFT 05/01/2023 11:54 AM CLINICAL INDICATIONS: Left hip pain. COMPARISON: 2022. FINDINGS: Portable AP pelvis, AP left hip, and frog-leg lateral left hip radiographs obtained. Osteoarthritic changes are present at the hip joints bilaterally. Bony pelvis otherwise appears intact without displaced fracture. Multiple phleboliths are present within the lower pelvis. Deformity of the contralateral right greater trochanter again noted. Proximal left femur appears intact. No acute fracture nor destructive bone lesion is id (more content not included)... [facility]08-10-2023 NoteClinical Nutrition Assessment Name: Kiara Blanc Date: 1955 Date of Visit: 05/02/23 Reason for assessment: high risk Information obtained from: medical record and nursing Medical History No chief complaint on file. History reviewed. No pertinent past medical history. History reviewed. No pertinent surgical history. Current Outpatient Medications Medication Instructions aspirin 325 mg tablet Daily RT atorvastatin (LIPITOR) 80 mg, oral, Daily citalopram (CELEXA) 40 mg, oral, Daily clopidogrel (PLAVIX) 75 mg, oral, Daily furosemide (LASIX) 20 mg, oral, As needed gabapentin (NEURONTIN) 300 mg, oral, 3 times daily insulin glargine (LANTUS) 60 Units, subcutaneous, 2 times daily Januvia 100 mg, oral, Daily lisinopril 2.5 mg, oral, Daily metFORMIN (GLUCOPHAGE) 1,000 mg, oral, 2 times daily with meals metoprolol tartrate (LOPRESSOR) 12.5 mg, oral, 2 times daily omeprazole (PRILOSEC) 40 mg, oral, Daily before breakfast, Do not crush or chew. Allergies Allergen Reactions Adhesive Hydrocodone Bitartrate GI intolerance Hydrocodone-Acetaminophen Nausea And Vomiting Nutrition Problems: Mouth: missing teeth Abdominal Assessment: Last BM 04/30/23 Appetite: good Cognition: A&Ox1 (person), confused Geriatric feeding skills: Ability to feed oneself Skin Integrity: Pressure ulcer scabs around left buttocks Other factors: +1 edema 04/30 per RN Results from last 7 days Lab Units 05/02/23 0711 05/02/23 0329 05/01/23200605/01/23 1131 05/01/23 0742 05/01/23 0526 04/30/23 0737 04/30/23 0626 04/29/23 0824 04/29/23 0555 04/28/23 0752 04/28/23 0729 04/27/23 0017 04/26/23 1735 GLUCOSE mg/dL -- 197* -- -- -- 204* -- 165* -- 223* -- -- < > 75 POCT GLUCOSE mg/dL 144* -- 241* 174* < > -- < > -- < > -- < > -- < > -- BUN mg/dL -- 24 -- -- -- 26* -- 22 -- 20 -- -- < > 12 CREATININE mg/dL -- 0.88 -- -- -- 0.76 -- 0.82 -- 0.74 -- -- < > 0.70 SODIUM mmol/L -- 141 -- -- -- 138 -- 144 -- 139 -- -- < > 141 POTASSIUM mmol/L -- 3.9 -- -- -- 4.1 -- 3.7 -- 3.8 -- -- < > 3.5 MAGNESIUM mg/dL -- 1.5* -- -- -- 1.3* -- 1.5* -- 1.6* -- -- < > 0.6* HEMOGLOBIN g/dL -- -- -- -- -- 13.0 -- -- -- 13.1 -- 12.6 < > 12.0 WBC AUTO 10*3/uL -- -- -- -- -- 7.98 -- -- -- 7.42 -- 8.52 < > 7.21 HEMOGLOBIN A1C % -- -- -- -- -- -- -- -- -- -- -- -- -- 9.0* < > = values in this interval not displayed. I/O: Intake/Output Summary (Last 24 hours) at 05/02/2023 1047 Last data filed at 05/02/2023 0530 Gross per 24 hour Intake 595 ml Output 300 ml Net 295 ml Current Medications: aspirin, 81 mg, oral, Daily atorvastatin, 80 mg, oral, Nightly clopidogrel, 75 mg, oral, Daily dapagliflozin propanediol, 10 mg, oral, Daily enoxaparin, 40 mg, subcutaneous, q24h KAYLYN insulin aspart, 0-20 Units, subcutaneous, TID with meals insulin glargine, 20 Units, subcutaneous, BID lactated Ringer's, , , magnesium oxide, 400 mg, oral, BID metoprolol succinate XL, 50 mg, oral, Daily QUEtiapine, 25 mg, oral, BID sacubitril-valsartan, 1 tablet, oral, BID spironolactone, 25 mg, oral, Daily Anthropometrics: Height: 167.6 cm (5' 6 ) Weight: 86.1 kg (189 lb 13.1 oz) Body mass index is 30.64 kg/m???. IBW: 59.1 kg Nutrition Assessment: Dietary Orders (From admission, onward) Start Ordered 05/01/23 1501 Regular Diet Diet effective now Question: Room Service? Answer: Yes 05/01/23 1501 Percent Meals Eaten (%): 75 (05/01/23 2000 : Karin Jennings RN) Nutrition Risk: Low Nutrition Recommendations: Continue current diet. Added Female diabetic diet to help with blood sugar control. A1C 9% Good intakes, no need for nutrition intervention. H/o HF, not appropriate for diet education with mentation and dementia. Per SW, pending choices and beginning precert Monitor nutrition status. Goals: Nutrition Goals: intake > 75% meals and improve glucose control George Link, RDUnProtestant Deaconess Hospital08-10-2023 NotePhysical Therapy Cancellation of services for am April Pt per nursing can be seen for physical therapy services , upon verse writer entering pt's room pt was supine in the bed eating her breakfast with HOB elevated to 40 degrees . Pt was asking where her dog was verse writer explained to pt that she was in a hospital and her dog was at home . Pt said OH she thought her dog was around here referring to the hospital . Pt was also doing gross grasp movements when holding her silverware eating her breakfast , pt stated her low back hurt and pt is willing to work with verse writer after she finishes her breakfast. Attempted time: 09:58-10:05UnPro[facility]08-10-2023 Note Attestation signed by Luis Alvarez DO at 05/02/2023 3:40 PM (Updated) Agree with above - overall, we have significant concern that the patient will continue to be intermittently syncopal/have fall risk in the future. We spoke with Dr. Cervantes from cardiology, and at this time, it's unclear if major neurocogntive disorder (dementia) or delirium plays a more significant role in the patient's presentation, but we anticipate no difficulty with the patient's adherence to medications in the future as the patient will be placed in a SNF and subsequent fdc post hospital discharge. Regardless of psychiatric diagnosis, the patient's POA has provided consent for this procedure. We defer to cardiology's recommendations regarding the need for cardiac catheterization. From our standpoint, there are no psychiatric contraindications for this procedure. After cardiology signs off on the patient, we can help assist with discharge recommendations. Until then, we will continue to modify PRN medications to help with agitation and irritability. Psychiatry Service Progress Note Identifying Data Patient Name: Kiara Blanc MRN / CSN: [id number] Date of / Age: 6 1955 / 68 y.o. / female Encounter Date: 05/02/23 Diagnosis: The primary encounter diagnosis was NSTEMI (non-ST elevated myocardial infarction) (CMS/HCC). A diagnosis of Acute on chronic systolic (congestive) heart failure (CMS/HCC) was also pertinent to this visit. Summary Kiara Blanc is a 68 y.o. female who presented on 04/26/2023 to [facility] from [facility] ([facility]) for acute NSTEMI. Psychiatry was consulted on 04/29/2023 for dementia and delirium. Medical Course: Patient is a 68-year-old female with an unknown psychiatric history and medical history of CAD, HLD, CAD, chronic diastolic HF w/ NYHA Class II, diabetes mellitus presented to [facility] as a direct transfer for cardiology service evaluation for acute NSTEMI. She was admitted initially at [facility] ([facility]) on 04/25/2023 after she was found lying on the floor in between the wall and the couch. On EMS arrival, patient was altered, had extensive stool over her entire body, and dehydrated. She underwent trauma work-up which was within normal limits. Patient was non-participatory in history and did not offer any meaningful information. She did not remember any events. EMS concerned that patient did not provide any additional care for her and refuses to clean or help her at home. Over at the facility on arrival, she was noted to have rhabdommyolysis, suspected UTI, and hypoglycemia and initial troponin was slightly elevated. She received IV resuscitation, started on empiric Rocephin and troponin curve was trended. Patient denied any chest pain or any symptoms associated with her symptoms. CT head, C-spine, CXR, pelvic XR were negative. EKG showed sinus tachycardia with no other acute abnormalities. Lab studies showed minimal leukocytosis (WBC 11.5). Urine culture was positive for grover tropicalis. On 04/26/23, she had elevated troponin level increased from 100 to over 1000. She was subsequently transferred to [facility] for cardiac evaluation. She was started on aspirin and heparin drip was commenced. Patient had an episode of hypoglycemia as low as 30 during OSH hospitalization, which subsequently led to start on a dextrose drip. A1C 9.1. Cardiology held off on cardiac catheterization and will wait until patient is stable from mental standpoint and low concern for ongoing infection. PT/OT recommends SNF placement. [facility] is currently working on pre-certification. 05/01/23 - Patient complained of left hip pain. Hip X-ray showed no dislocation fracture and osteoarthritis left hip. Psychiatric Course: Psychiatry was consulted on 04/29/2023 for dementia and delirium. When asked about the incident, she only could remember that she tripped over and fell down. She states she has previously been hospitalized multiple times due to falls. Denies any head trauma or seizure episodes. She currently lives with and pets. She does not have any kids. Per nursing staff, patient has had an episode of agitation. One time Haldol 1 mg was given, and Seroquel 25 mg twice daily PRN by Dr. Quan was administered from 04/28/23. Per previous report, patient has a history of noncompliance to her medications. She has a very difficult poor living situation and EMS has called APS multiple times for this patient in the past. Able to talk to , Mr. Cameron Blanc (ph: [phone]) at the patient's bedside. He called EMS when he found her after coming back from work. He mentions she frequently falls at home and has been hospitalized many times. Per , she refuses to use walker desp (more content not included)...[facility]08-09-2023 Note Attestation signed by Fercho Le MD at 05/01/2023 5:55 PM I personally saw and examined the patient on the same date of service as resident/fellow Tamera Cervantes. I discussed the findings and therapeutic plan with the resident/fellow Tamera Cervantes. I agree with the documentation, except for any edits/updates below. Teaching Physician's Revisions: I have discussed her situation with her primary lumber salvager Dr. Gaby Sanchez. We were planning on proceeding with cardiac catheterization given her mildly elevated troponin and drop in ejection fraction. However given her neurological issues we will hold off for now and continue medical therapy. Cardiac catheterization can be performed whenever neurological issues are resolved. Subjective No acute events overnight. Seen and examined at bedside in the a.m. Still denies any chest pain, shortness of breath, dizziness, palpitation, nausea or vomiting, when asked. Reported hx of baseline dementia. Patient was planned for diagnostic cardiac cath, but became acutely agitated later in the day, with difficulty to control her symptoms. Cardiac cath was canceled Objective Patient Vitals for the past 24 hrs: BP Temp Temp src Pulse Resp SpO2 Weight 05/01/23 1220 104/67 36.1 ???C (97 ???F) Temporal 80 19 97 % -- 05/01/23 0800 -- 36.1 ???C (97 ???F) Temporal -- -- -- -- 05/01/23 0440 131/76 36.1 ???C (97 ???F) -- 81 17 95 % 86.2 kg (190 lb 0.6 oz) 05/01/23 0000 155/77 36.1 ???C (97 ???F) -- 85 20 95 % -- 04/30/23 1921 112/77 36.3 ???C (97.3 ???F) -- 99 19 97 % -- Physical Exam Constitutional: Appearance: appears chronically ill. HENT: Head: Atraumatic. Cardiovascular: Rate and Rhythm: Normal rate and regular rhythm. Heart sounds: Normal heart sounds. Abdominal: General: Bowel sounds are normal. Musculoskeletal: General: Normal range of motion. Cervical back: Neck supple. Skin: General: Skin is warm. Neurological: General: No focal deficit present. Mental Status: She is alert. Mental status is at baseline. Psychiatric: Mood and Affect: appears altered Lab Results Component Value Date NA 138 05/01/2023 K 4.1 05/01/2023 CL 108 (H) 05/01/2023 ANIONGAP 11 05/01/2023 BUN 26 (H) 05/01/2023 CREATININE 0.76 05/01/2023 CALCIUM 9.1 05/01/2023 MG 1.3 (L) 05/01/2023 Lab Results Component Value Date BILITOT 0.3 04/26/2023 BILIDIR 0.1 04/26/2023 ALKPHOS 63 04/26/2023 AST 41 (H) 04/26/2023 ALT 17 04/26/2023 PROT 5.6 (L) 04/26/2023 ALBUMIN 3.0 (L) 04/26/2023 Lab Results Component Value Date WBC 7.98 05/01/2023 RBC 4.64 05/01/2023 HGB 13.0 05/01/2023 HCT 39.4 05/01/2023 MCV 84.9 05/01/2023 MCH 28.0 05/01/2023 MCHC 33.0 05/01/2023 RDW 13.2 05/01/2023 NEUTOPHILPCT 60.6 04/26/2023 LYMPHOPCT 23.0 04/26/2023 MONOPCT 11.5 04/26/2023 EOSPCT 3.3 04/26/2023 BASOPCT 0.6 04/26/2023 NEUTROABS 4.37 04/26/2023 LYMPHSABS 1.66 04/26/2023 MONOSABS 0.83 04/26/2023 EOSABS 0.24 04/26/2023 BASOSABS 0.04 04/26/2023 PLT 341 05/01/2023 NRBC 0.0 04/26/2023 Encounter Date: 04/26/23 ECG 12 lead Result Value Ventricular Rate 83 Atrial Rate 83 MI Interval 178 QRS DURATION 88 QT Interval 414 QTC CALCULATION(BAZETT) 486 P Alva 64 R-Alva -19 T Wave Alva 152 Impression Sinus rhythm with occasional Premature ventricular complexes Septal infarct , age undetermined Prolonged QT interval Abnormal ECG When compared with ECG of 16-MAR-2022 12:13, Premature ventricular complexes are now Present T wave inversion no longer evident in Anterolateral leads QT has lengthened Confirmed by Vera MARTINEZ, L.S. (2) on 04/26/2023 4:09:15 PM TTE 02/2022 Left Ventricle: The left ventricle is mildly enlarged. Global left ventricular systolic function is mildly reduced. The EF is 45 % visually. Left ventricular wall thickness is mildly increased. Regional wall motion abnormalities (see diagram). Concentric left ventricular hypertrophy. Right Ventricle: The right ventricle is normal in size. Mildly reduced right ventricular systolic function. Unable to assess right sided pressures due to lack of measurable tricuspid regurgitation. Left Atrium: The left atrium is normal in size. Overall Conclusions: Due to suboptimal imaging Lumason contrast was administered for opacification and better delineation of endocardial borders. TTE 04/26/2023 Left Ventricle: The left ventricle appears normal in size. Global left ventricular systolic function is severely reduced. The EF is 30 % visually. Left ventricular wall thickness is normal. Right Ventricle: The right ventricle appears normal in size. Right ventricular systolic function appears reduced. Unable to assess right sided pressures due to lack of measurable tricuspid regurgit (more content not included)...[facility]08-09-2023 Note05/01/23 1620 Admission Assessment Questions Verify insurance with patient Yes ([employer] Medicare Advantage) Patient is not willing to answer Admission Assessment Questions at this time. Channel Specialist asked if I could call her and she said no . OTM to follow. [facility]08-09-2023 NotePhysical Therapy Physical Therapy Treatment Patient Name: Kiara Blanc : 1955 Today's Date: 05/01/2023 Patient Active Problem List Diagnosis Coronary artery disease involving [place] coronary artery of [place] heart without angina pectoris Hyperlipidemia, mixed Edema of lower extremity Chronic diastolic heart failure (CMS/HCC) Tobacco dependence NSTEMI (non-ST elevated myocardial infarction) (CMS/HCC) Acute cystitis without hematuria Hypoglycemia Traumatic rhabdomyolysis (CMS/HCC) Acute on chronic systolic (congestive) heart failure (CMS/HCC) Time : 12:40-13:21 05/01/23 1526 PT Last Visit PT Received On 05/01/23 General Subjective Pt had been cleared medically by nursing to receive therapy session . Upon entering the room pt was supine in the bed pt agreeable to P.T. 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 Pt was not able to remember what kind of work her does , pt tried ripping her IV out of her arm today secondary to her thinking it was something on her .) Orientation Level Oriented to person (to self) Following Commands Follows one step commands with repetition;Follows one step commands with increased time (pt unable to discern her L LE from her R LE during balance activities standing .) Therapeutic Exercise Therapeutic Exercise Activity 1 Supine AAROM hip and knee flexion , hip abduction/ adduction , ankle pumps , SAQ 10 reps 1 set . Channel Specialist did a static stretch with pt's heel cords with a 20 second isometric hold 10 reps 1 set . Balance/Neuromuscular Re-Education Balance/Neuromuscular Re-Education Activity 1 Pt had to do standing balance activities such as : Balance/Neuromuscular Re-Education Activity 2 Semitandem standing walking on a 12 ft line on the floor with 1 UE support Balance/Neuromuscular Re-Education Activity 3 sidestepping on 12 ft line on floor with 1 UE support Balance/Neuromuscular Re-Education Activity 4 Pt. had to stand on a step and reach for cones with 1 UE support reaching out of BALDOMERO . Pt had to do semi tandem standing and reach for cones at different heights crossing midline while his L LE was on a step to assimulate unilateral standing . Static Sitting Balance Static Sitting-Balance Support Feet supported Static Sitting-Level of Assistance Independent Static Sitting-Comment/Number of Minutes no LOB Dynamic Sitting Balance Dynamic Sitting-Balance Support Feet supported Dynamic Sitting-Balance Forward lean;Lateral lean;Reaching for objects;Reaching across midline (pt had to reach for cones while sitting at EOB and reaching out of her BALDOMERO.) Dynamic Sitting Balance-Level of Assistance Distant supervision Dynamic Sitting-Comments pt had to reach for cones with bilat UE's Static Standing Balance Static Standing-Balance Support Right upper extremity supported;Left upper extremity supported;With device Static Standing-Level of Assistance Close supervision Dynamic Standing Balance Dynamic Standing-Balance Support Right upper extremity supported;Left upper extremity supported;With device Dynamic Standing-Balance (while walking into the hallways) Dynamic Standing Balance-Level of Assistance Contact guard Dynamic Standing-Comments 15% tactile cues for dynamic balance . Ambulation Ambulation Yes Ambulation 1 Surface 1 Level tile Device 1 Rolling walker Assistance 1 Contact guard Quality of Gait 1 15% tactile cues to keep pt's rolling walker closer to pt pt tends to walk out of the base of support of the rolling walker Comments/Distance (ft) 1 68 ft x 1 Ambulation 2 Surface 2 Level tile Device 2 Rolling walker Assistance 2 Contact guard Quality of Gait 2 decreased swing phasebilat LE's Comments/Distance (ft) 2 15% tactile cues to keep pt's rolling walker closer to pt pt tends to walk out of the base of support of the rolling walker (18 ft x 2) Bed Mobility Bed Mobility Yes Bed Mobility 1 Bed Mobility From 1 Supine Bed Mobility Type 1 To Bed Mobility to 1 Short sit (HOB at a 10 degree angle) Level of Assistance 1 Minimum assistance;Contact guard;Minimal tactile cues Bed Mobility Comments 1 25% -15% tactile cues to assist pt with getting her trunk sitting upright at EOB . Transfers Transfer Yes Transfers 2 Transfer From 2 Sit Transfer Type 2 To and from Transfer to 2 Stand Technique 2 Sit to stand;Stand to sit Transfer Device 2 rolling walker Transfer Level of Assistance 2 Contact guard;Close supervision Trials/Comments 2 pt inconsistently performing between these two assistance levels Transfers 3 Transfer From 3 Stand Transfer Type 3 To and from Transfer to 3 Toilet Technique 3 Sit to stand Transfer Device 3 other (siderail beside toilet) Transfer Level of Assistance (more content not included)...[facility]08-09-2023 Note05/01/23 1513 Referral Data Referral Source Physician Referral Reason Placement Activities of Daily Living Assistive Device Walker (patient has a walker but doesn't use it.) Living Arrangement (Current/Prior to Hospitalization) Private residence (2 story home but patient stays on first level.) Ambulation Other (Comment) (refuses to use assistive device) Dressing Other (Comment) (patient has been taking her clothes of per and staying naked) Feeding Other (Comment) (Patient had been eating anything and everything and has bouts she refuses.) Behavior Confused Discharge Planning Support Systems Spouse/significant other Type of Residence/Post Acute Needs jail facility Will patient need Precert for Post Acute needs? Yes Patient's goal for discharge per patient should go to rehab and maybe fpc care. Does the patient need discharge transport arranged? Yes Has discharge transport been arranged? No Discharge Referral Plan and Patient Instructions: Shift Superintendent [employer] [facility] ([facility] APS involved Adithya Elenaer [phone] ext [phone] or [phone]) SW attempted to meet with patient. She was sitting in a chair and RN was in the room. RN trying to help patient however patient is agitated and refusing any assistance and stating Just leave me alone over and over. Patient did not want to be touched. Patient eventually started taking some of clothes off after this worker left the room per RN. Patient had already pulled her IV out prior to entering the room. SW called . RN thought was coming to the hospital. states he is still at home (over 1 hr away). He states he was waiting for a doctor to call so he could give consent for a cardiac cath today. He states he couldn't talk on the phone so he was waiting to take the call. Now it is too late to come to visit. states they live in a 2 story home but he has bought a futon bed for patient on the first floor. He states that the patient has been very difficult to care for. He was trying to manage her meds but she has begun refusing her meds excepts sometimes she will allow insulin. Per he states that he had her diabetes controlled for a long time but now her BS's are all over the place from 60's to 250's. Patient refuses to use a walker although they have one. He states stopped wearing clothes and her diaper and now she is making messes all over the place and he cannot keep things clean. Per patient sleeps all day and doesn't do anything. SW spoke with [facility] APS Adithya San [phone] ext [phone]. (that visited with patient yesterday). They report that patients home is a hoarding home. They report it is in deplorable condition with mold. They cannot force the patient to go to rehab or fpc care unless someone determines that patient does not have capacity to make her own decisions. They have offered to to assist and pay for clean up of the home. has evaded the offers and continually changes the subject when they offer. 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 He states he is agreeable to referrals to [facility] or [facility]. If these providers do not have available bed or unable to meet needs he is ok with referrals to: [facility], [facility], [facility], [facility] in [place] or [facility] in no particular order. SW will hold off on referrals today due to patients behaviors and her need for restraints. It does not appear that patient has any fpc coverage for fdc if needed. SW referred to [facility] for determination if patient would qualify for Medicaid as secondary. SW to follow.[facility] 05-01-2023 NoteHospital Medicine Daily Progress Note - 05/01/2023 12:22 PM; Room: [address] [place] [address] Admission: 04/26/2023 1:50 PM; Length of stay: 5 days THE HOSPITALIST TEAM PREFERS TO USE [employer] CHAT FOR COMMUNICATION 7AM-7PM. IF I DO NOT RESPOND WITHIN 15 MINUTES, PLEASE PAGE ME/CALL THROUGH THE CABLE SPLICER APPRENTICE. FROM 7PM-7AM, PLEASE PAGE [phone](COVR) Code Status: Full Code Discharge Destination: long term facility Discharge planning: Cath today Overview Patient is seen for evaluation and management of NSTEMI. Subjective Patient is confused at her baseline but less agitated. Denies chest pain, SOB. Physical Exam Visit Vitals BP 131/76 Pulse 81 Temp 36.1 ???C (97 ???F) (Temporal) Resp 17 Intake/Output Summary (Last 24 hours) at 05/01/2023 1222 Last data filed at 05/01/2023 0440 Gross per 24 hour Intake -- Output 500 ml Net -500 ml Physical Exam Cardiovascular: Rate and Rhythm: Normal rate and regular rhythm. Pulmonary: Effort: Pulmonary effort is normal. Breath sounds: Normal breath sounds. Abdominal: General: Abdomen is flat. Palpations: Abdomen is soft. Neurological: Mental Status: She is alert. Comments: Oriented x1 Estimated body mass index is 30.67 kg/m??? as calculated from the following: Height as of this encounter: 1.676 m (5' 6 ). Weight as of this encounter: 86.2 kg (190 lb 0.6 oz). Active Inpatient Problems Principal Problem: NSTEMI (non-ST elevated myocardial infarction) ([facility]) Active Problems: Acute cystitis without hematuria Hypoglycemia Traumatic rhabdomyolysis ([facility]) Acute on chronic systolic (congestive) heart failure ([facility]) Assessment and Plan # NSTEMI: # Chronic HrEF with worsening EF 30%: - Completed heparin for 48 hours. - Lopressor changed to Toprol. Added Entresto, spironolactone and Farxiga. - Continue aspirin, Plavix and Lipitor. - Diagnostic cardiac cath today. # Syncope, suspected due to hypoglycemia: - Echo showed no valvular disease. # HypoMg and hypokalemia, improving: - We will replace. # Traumatic rhabo, resolved. # CAD s/p CABG in 2016: - Continue aspirin, Plavix and Lipitor. Lopressor changed to Toprol 25 mg due to reduced EF. # IDDM2 with hypoglycemia, improving: - A1C is 9. - Reduce Lantus to 20 U BID. - Monitor glucose closely. # Dementia with behavioral disturbances, improving: - CT brain at OSH showed no acute event. - UA showed no UTI. - Seroquel as needed. - Psych is following. Nutrition Screen VTE Prophylaxis: Lovenox Scheduled Meds aspirin, 81 mg, oral, Daily atorvastatin, 80 mg, oral, Nightly clopidogrel, 75 mg, oral, Daily dapagliflozin propanediol, 10 mg, oral, Daily enoxaparin, 40 mg, subcutaneous, q24h KAYLYN insulin aspart, 0-20 Units, subcutaneous, TID with meals insulin glargine, 20 Units, subcutaneous, BID magnesium oxide, 400 mg, oral, BID metoprolol succinate XL, 50 mg, oral, Daily QUEtiapine, 25 mg, oral, BID sacubitril-valsartan, 1 tablet, oral, BID spironolactone, 25 mg, oral, Daily Pertinent Investigations Hematology: Results from last 7 days Lab Units 05/01/23 0526 04/29/23 0555 WBC AUTO 10*3/uL 7.98 7.42 HEMOGLOBIN g/dL 13.0 13.1 HEMATOCRIT % 39.4 38.2 MCV fL 84.9 83.2 PLATELETS AUTO 10*3/uL 341 305 Chemistry: Results from last 7 days Lab Units 05/01/23 0526 04/30/23 0626 04/29/23 0555 SODIUM mmol/L 138 144 139 POTASSIUM mmol/L 4.1 3.7 3.8 CHLORIDE mmol/L 108* 108* 106 CO2 mmol/L 23 29 22 BUN mg/dL 26* 22 20 CREATININE mg/dL 0.76 0.82 0.74 GLUCOSE mg/dL 204* 165* 223* MAGNESIUM mg/dL 1.3* 1.5* 1.6* CALCIUM mg/dL 9.1 9.3 9.1 Results from last 7 days Lab Units 04/26/23 1735 AST U/L 41* ALT U/L 17 ALK PHOS U/L 63 BILIRUBIN TOTAL mg/dL 0.3 BILIRUBIN DIRECT mg/dL 0.1 Results from last 7 days Lab Units 05/01/23 1131 05/01/23 0742 04/30/23 2016 04/30/23 1635 04/30/23 1120 04/30/23 0737 POCT GLUCOSE mg/dL 174* 211* 202* 379* 150* 156* Historical Values: (Includes values prior to this admission) Lab Results Component Value Date TSH 1.24 04/29/2023 HDL 34 04/26/2023 LDL 51 04/26/2023 Lab Results Component Value Date [id number] 04/29/2023 Imaging Complete Echo (TTE) w/wo Imaging Agent, Strain, 3D, Bubble Study 1 [facility] Heart Station [address] [place] [address] [phone] (fax) Echocardiogram-[facility] Name: KIARA BLANC Study Date: 04/26/2023 03:54 PM B/P: 129 mmHg/77 mmHg HR: Date of : 1955 Location: [facility] Height: 66 in. Age: 68 year(s) Patient Room: 3131 Weight: 203 lb. Gender: Female Patient Status: InPt BSA: 2.01 m2 Indication: Chest Pain Examination: Echocardiogram (Complete), Lumason Contrast Image Quality: Technically difficult study the patient was uncooperative Patient Consent: Procedure explained to patient Conclusions Left Ventricle: The left ventricle appears normal (more content not included)...[facility]08-09-2023 NoteOccupational Therapy Occupational Therapy Treatment Note Patient Name: Kiara Blanc Patient Date of : 1955 Today's Date: 05/01/23 Time in: 927 Time Out: 1037 Total Time: 69 Active Ambulatory Problems Diagnosis Date Noted Coronary artery disease involving [place] coronary artery of [place] heart without angina pectoris 07/18/2022 Hyperlipidemia, mixed 07/18/2022 Edema of lower extremity 07/18/2022 Chronic diastolic heart failure (CMS/HCC) 07/18/2022 Tobacco dependence 07/18/2022 Resolved Ambulatory Problems Diagnosis Date Noted No Resolved Ambulatory Problems No Additional Past Medical History OT Received On 05/01/23 Subjective Upon arrival pt was attempting to call her dog up into her hospital bed Pt was still looking for her dog after verse writer oriented pt. Objective 1 Pt was returned to bed at EOS due to pt fidgeting in chair and being impulsive. Objective 2 Upon arrival pts bedding was saturated with urine (pt had pulled out Purewick), verse writer notes skin was on buttocks was red (nursing notified) pt also c/o pain in L hip throughout session, during rolling activity and when bringing legs into and out of bed. Channel Specialist notified nursing as pt was found down for several days at home. OT Discharge Recommendation Residential Facility OT Equipment Recommendations TBD General Pain 7 Pain Location L hip (Nursing was notified) Pain Comments Precautions: Bed alarm, chair alarm UE WB status bilateral, WBAT LE WB status bilateral, WBAT Cognition Orientation Oriented to person and stated that we were in a hospital did not know which one. Otherwise, pt was not oriented. Attention Span impaired Memory impaired Sequencing impaired Problem Solving impaired Other General Assessment Vision wears glasses all the time Hearing Intact Communication Intact Skin: Area areas and small open areas located on buttocks, nursing notified Edema: Balance: Sitting Static Balance: Balance support RUE support, LUE support, Unilateral UE Support, No UE Support, Feet Supported Level of Assist: Supervision/set -up Comments: Difficult to assess as pt was fidgeting and setting to R side to off load L hip. While sitting in chair Sitting Dynamic Balance: Balance support RUE support, LUE support, Unilateral UE Support, No UE Support, Feet Supported Level of Assist: Supervision/set -up Comments: While sitting in chair Standing Static Balance: Balance support R UE support, L UE support, Unilateral UE support, Rolling Walker Level of Assist: Minimal assist Comments: Activities of Daily Living UB dressing: Level of Assistance: Minimal assist Where Assessed: From chair, No equipment used Comments: To change gowns LB dressing: Level of Assistance: dependent Where Assessed: Supine (HOB raised), No equipment used Comments: To change brief in bed UB bathing: Level of Assistance: Supervision/set -up Where Assessed: from chair, None Comments: Channel Specialist set up wash clothe and cued pt to wash areas of body LB Bathing Level of Assistance: Moderate assist Where Assessed: Supine (HOB raised) , from chair, None Comments: Rita care completed by verse writer while supine, pt sat in chair to wash B LE's Toileting: Level of Assistance: dependent Where Assessed: Bed, None Comments: Brief change Bed Mobility: For supine to sit and sit to supine with use of hospital bed and rails Rolling Left: Minimal Assist Comments: Rolling Right: Minimal Assist Comments: Supine to Sit: Moderate Assist Comments: Sit to Supine: Moderate Assist Comments: Transfers: Sit to Stand: Minimal Assist , Rolling Walker Comments: Stand to Sit: Minimal Assist , None Comments: To chair: Minimal Assist , Rolling Walker Comments: Functional Ambulation: Pt ambulated with walker from EOB to chair about 4 feet. No LOB however, hands on for safety Tone: All extremities WNL Right Upper Extremity: normal Left Upper Extremity: normal Right Lower Extremity: normal Left Lower Extremity: normal Tone Comments: OT Assessment: Pt is progressing toward goals but would benefit from continued therapy to increase balance and safety for participation in functional mobility and increase independence with ADL's to return to OF Multi-Disciplinary Problems (from Occupational Therapy) Active Problems Problem: Balance Start Date: 04/29/23 Goal Start Date Expected End Date End Date LTG - Patient will maintain dynamic sit and static stand balance to allow for safe mobility 04/29/23 05/27/23 -- Problem: Bathing Start Date: 04/29/23 Goal Start Date Expected End Date End Date LTG - Patient will utilize adaptive techniques to bathe body with minimal assistance 04/29/23 05/27/23 -- Problem: Dressings Lower Extremities Start Date: 04/29/23 Goal Start Date Expected End Date End Date LTG - Patient will dress lower body with minimal assistance (more content not included)...[facility]08-09-2023 Note Attestation signed by Luis Alvarez DO at 05/01/2023 1:42 PM Agree with above. Recommend discharge planning by PT/OT. Due to concerns voiced by EMS, regarding historical concerns voiced to APS, we recommend that the primary team defer to recommendations from legal/social work regarding surrogate decision makers if the patient's is not an appropriate caregiver for this patient. Psychiatry will sign off at this time. Psychiatry Service Progress Note Identifying Data Patient Name: Kiara Blanc MRN / CSN: [id number] Date of / Age: 6 1955 / 68 y.o. / female Encounter Date: 05/01/23 Diagnosis: The primary encounter diagnosis was NSTEMI (non-ST elevated myocardial infarction) ([facility]). A diagnosis of Acute on chronic systolic (congestive) heart failure (CMS/[facility]) was also pertinent to this visit. Summary Kiara Blanc is a 68 y.o. female who presented on 04/26/2023 to [facility] ([facility]) for acute NSTEMI. Psychiatry was consulted on 04/29/2023 for dementia and delirium. Medical Course: Patient is a 68-year-old female with an unknown psychiatric history and medical history of CAD, HLD, CAD, chronic diastolic HF w/ NYHA Class II, diabetes mellitus presented to [facility] as a direct transfer for cardiology service evaluation for acute NSTEMI. She was admitted initially at [facility] ([facility]) on 04/25/2023 after she was found lying on the floor in between the wall and the couch. On EMS arrival, patient was altered, had extensive stool over her entire body, and dehydrated. She underwent trauma work-up which was within normal limits. Patient was non-participatory in history and did not offer any meaningful information. She did not remember any events. EMS concerned that patient did not provide any additional care for her and refuses to clean or help her at home. Over at the facility on arrival, she was noted to have rhabdommyolysis, suspected UTI, and hypoglycemia and initial troponin was slightly elevated. She received IV resuscitation, started on empiric Rocephin and troponin curve was trended. Patient denied any chest pain or any symptoms associated with her symptoms. CT head, C-spine, CXR, pelvic XR were negative. EKG showed sinus tachycardia with no other acute abnormalities. Lab studies showed minimal leukocytosis (WBC 11.5). Urine culture was positive for grover tropicalis. On 04/26/23, she had elevated troponin level increased from 100 to over 1000. She was subsequently transferred to [facility] for cardiac evaluation. She was started on aspirin and heparin drip was commenced. Patient had an episode of hypoglycemia as low as 30 during OSH hospitalization, which subsequently led to start on a dextrose drip. A1C 9.1. Cardiology held off on cardiac catheterization and will wait until patient is stable from mental standpoint and low concern for ongoing infection. PT/OT recommends SNF placement. SW is currently working on pre-certification. Psychiatric Course: Psychiatry was consulted on 04/29/2023 for dementia and delirium. When asked about the incident, she only could remember that she tripped over and fell down. She states she has previously been hospitalized multiple times due to falls. Denies any head trauma or seizure episodes. She currently lives with and pets. She does not have any kids. Per nursing staff, patient has had an episode of agitation. One time Haldol 1 mg was given, and Seroquel 25 mg twice daily PRN by Dr. Quan was administered from 04/28/23. Per previous report, patient has a history of noncompliance to her medications. She has a very difficult poor living situation and EMS has called APS multiple times for this patient in the past. Able to talk to , Mr. Cameron Blanc (ph: [phone]) at the patient's bedside. He called EMS when he found her after coming back from work. He mentions she frequently falls at home and has been hospitalized many times. Per , she refuses to use walker despite it was recommended. 04/29/23 - continue Seroquel 25 mg PO BID PRN 04/30/23 - switch Seroquel 25 mg PO BID PRN to scheduled Seroquel 25 mg PO BID Subjective Overnight Events: No acute events overnight reported. PRN Medications: No PRN meds were given in the past 24 hours. Patient: Patient was evaluated at bedside this morning. She was asleep but easily arouse. She has mitts on hands because she had previously tried to pull off IV lines. She states her sleep was better than yesterday, her mood is pretty good . Her appetite is good . She denies any physical complaints or any new issues at the moment. She denies SI, HI, and AVH. She remembers that her came a few days ago to visit her, but hasn't seen or talked (more content not included)... [facility]08-08-2023 NoteSW given information from RN provided by [facility]. Case Workers Leanna Heck [phone] ext [phone] and Adithya San [phone] ext [phone]. They provided a release of information for [facility] to communicate with APS. Copy of release in paper chart. Due to being after hours oncology social worker will call in the am. No family at bedside. SW advised patient is not oriented and will need SNF. SW to follow [facility]08-08-2023 NotePhysical Therapy Physical Therapy Treatment Patient Name: Kiara Blanc : 1955 Today's Date: 04/30/2023 Patient Active Problem List Diagnosis Coronary artery disease involving [place] coronary artery of [place] heart without angina pectoris Hyperlipidemia, mixed Edema of lower extremity Chronic diastolic heart failure (CMS/HCC) Tobacco dependence NSTEMI (non-ST elevated myocardial infarction) (CMS/HCC) Acute cystitis without hematuria Hypoglycemia Traumatic rhabdomyolysis ([facility]/HCC) Time : 11:04-11:45 04/30/23 1556 PT Last Visit PT Received On 04/30/23 General Subjective Pt had been cleared medically by nursing staff to receive therapy services , nursing informed verse writer that pt was refusing all services this morning including her am medications. Upon verse writer entering the room pt was L sidelying in the bed with her food tray in bed with her , pt has 1 sand mitt on and while nursing in the room pt took off other sand mitt. Channel Specialist able to talk pt into working with therapy . Cognition Orientation Level Oriented to person Therapeutic Exercise Therapeutic Exercise Activity 1 While supine AROM/AAROM for bilat LE's ankle pumps, R LE SAQ, L LE quad set , hip abduction and adduction , hip internal and external rotation, hip and knee flexion 10 reps 1 set . Static Sitting Balance Static Sitting-Balance Support Feet supported Static Sitting-Level of Assistance Close supervision Static Standing Balance Static Standing-Balance Support Left upper extremity supported;Right upper extremity supported (on rolling walker) Static Standing-Level of Assistance Minimum assistance Static Standing-Comment/Number of Minutes no LOB Dynamic Standing Balance Dynamic Standing-Balance Support Left upper extremity supported;Right upper extremity supported;With device (rolling walker) Dynamic Standing-Balance (while walking to get into bedside chair) Dynamic Standing Balance-Level of Assistance Minimum assistance Dynamic Standing-Comments 25% tactile cues to assist pt with keeping her dynamic standing balance . Ambulation Ambulation Yes Stairs Stairs No Bed Mobility Bed Mobility Yes Bed Mobility 1 Bed Mobility From 1 Supine Bed Mobility Type 1 To Bed Mobility to 1 Short sit (HOB at a 10 degree angle) Level of Assistance 1 Moderate assistance;Moderate tactile cues Bed Mobility Comments 1 50% tactile cues to assist pt with using her UE's to assist getting herself sitting upright at EOB . pt needed 50% tactile cues at trunk to get pt sitting upright at EOB . Transfers Transfer Yes Transfers 2 Transfer From 2 Stand Transfer Type 2 To Transfer to 2 Sit;Toilet Technique 2 Stand to sit Transfer Device 2 rolling walker Transfer Level of Assistance 2 Minimum assistance;Minimal verbal cues Trials/Comments 2 25% tactile and verebal cues to assist pt with sequencing for safe and effective performance making sure pt reaches for rail on side of toilet for pt to help control rate of descent when pt is sitting Transfers 3 Transfer From 3 Bed Transfer Type 3 To Transfer to 3 Chair with arms Technique 3 (pt sidestepping and stepping backwards to get into bedside chair) Transfer Device 3 rolling walker Transfer Level of Assistance 3 Minimum assistance;Minimal tactile cues Other Activity Other Activity 2 pt left in bedside chair with chair alarm on , verse writer promised to come back a couple of hours to get pt back to bed and see how she was transferring pt in agreeable to do this . Plan Level of assist 1 assist PT Discharge Recommendations jail facility placement Goals: Multi-Disciplinary Problems (from Physical Therapy) Active Problems Problem: PT Misc Start Date: 04/29/23 Goal Start Date Expected End Date End Date Patient to demonstrate the ability to complete all bed mobility independently 04/29/23 05/13/23 -- Goal Details: Progress HOB to flat Goal Start Date Expected End Date End Date Patient to demonstrate the ability to complete all transfers independently with use of RW as needed 04/29/23 05/13/23 -- Goal Start Date Expected End Date End Date Patient to demo the ability to ambulate 50 ft with SBA and use of RW as needed 04/29/23 05/13/23 -- Goal Start Date Expected End Date End Date Patient to maintain balance throughout all functional tasks 04/29/23 05/13/23 -- Goal Start Date Expected End Date End Date Patient to participate in BLE exercise to improve strength and limit effects of immobility 04/29/23 05/13/23 -- 04/30/23 1600 6 Clicks (Mobility) Help from another person turning from your back to your side while in a flat bed without using bedrails 2 Help from another person moving from lying on your back to sitting on the side of a flat bed without using bedrails 2 Help from another person moving to and from a bed to a chair (including a wheelchair) 3 Help from another person standi (more content not included)...[facility]08-08-2023 NoteHospital Medicine Daily Progress Note - 04/30/2023 1:14 PM; Room: 3131/3131-01 Admission: 04/26/2023 1:50 PM; Length of stay: 4 days THE HOSPITALIST TEAM PREFERS TO USE [employer] CHAT FOR COMMUNICATION 7AM-7PM. IF I DO NOT RESPOND WITHIN 15 MINUTES, PLEASE PAGE ME/CALL THROUGH THE CABLE SPLICER APPRENTICE. FROM 7PM-7AM, PLEASE PAGE [phone](COVR) Code Status: Full Code Discharge Destination: long term facility Discharge planning: Pending placement Overview Patient is seen for evaluation and management of NSTEMI. Subjective Patient is confused at her baseline but less agitated. She is more active today. Patient slept well with Seroquel. Physical Exam Visit Vitals BP (!) 153/95 Pulse 100 Temp 35.8 ???C (96.5 ???F) (Temporal) Resp 25 Intake/Output Summary (Last 24 hours) at 04/30/2023 1314 Last data filed at 04/30/2023 0400 Gross per 24 hour Intake 716 ml Output 1000 ml Net -284 ml Physical Exam Cardiovascular: Rate and Rhythm: Normal rate and regular rhythm. Pulmonary: Effort: Pulmonary effort is normal. Breath sounds: Normal breath sounds. Abdominal: General: Abdomen is flat. Palpations: Abdomen is soft. Neurological: Mental Status: She is alert. Comments: Oriented x1 Estimated body mass index is 30.78 kg/m??? as calculated from the following: Height as of this encounter: 1.676 m (5' 6 ). Weight as of this encounter: 86.5 kg (190 lb 11.2 oz). Active Inpatient Problems Principal Problem: NSTEMI (non-ST elevated myocardial infarction) (CMS/HCC) Active Problems: Acute cystitis without hematuria Hypoglycemia Traumatic rhabdomyolysis (CMS/HCC) Assessment and Plan # NSTEMI: # Chronic HrEF with worsening EF 30%: - Completed heparin for 48 hours. - Lopressor changed to Toprol. Added Entresto, spironolactone and Farxiga. - Cardio recommended medical treatment due to dementia. Continue aspirin, Plavix and Lipitor. # Syncope, suspected due to hypoglycemia: - Echo showed no valvular disease. # HypoMg and hypokalemia, improving: - We will replace. # Traumatic rhabo, resolved. # CAD s/p CABG in 2016: - Continue aspirin, Plavix and Lipitor. Lopressor changed to Toprol 25 mg due to reduced EF. # IDDM2 with hypoglycemia, improving: - A1C is 9. - Reduce Lantus to 20 U BID. - Monitor glucose closely. # Dementia with behavioral disturbances, improving: - CT brain at OSH showed no acute event. - UA showed no UTI. - Seroquel as needed. - Psych is following. Nutrition Screen VTE Prophylaxis: Lovenox Scheduled Meds aspirin, 81 mg, oral, Daily atorvastatin, 80 mg, oral, Nightly clopidogrel, 75 mg, oral, Daily dapagliflozin propanediol, 10 mg, oral, Daily enoxaparin, 40 mg, subcutaneous, q24h KAYLYN insulin aspart, 0-20 Units, subcutaneous, TID with meals insulin glargine, 20 Units, subcutaneous, BID magnesium oxide, 400 mg, oral, BID metoprolol succinate XL, 25 mg, oral, Daily QUEtiapine, 25 mg, oral, BID sacubitril-valsartan, 1 tablet, oral, BID spironolactone, 25 mg, oral, Daily Pertinent Investigations Hematology: Results from last 7 days Lab Units 04/29/23 0555 04/28/23 0729 WBC AUTO 10*3/uL 7.42 8.52 HEMOGLOBIN g/dL 13.1 12.6 HEMATOCRIT % 38.2 37.1 MCV fL 83.2 83.0 PLATELETS AUTO 10*3/uL 305 313 Chemistry: Results from last 7 days Lab Units 04/30/23 0626 04/29/23 0555 04/28/23 0728 SODIUM mmol/L 144 139 139 POTASSIUM mmol/L 3.7 3.8 3.8 CHLORIDE mmol/L 108* 106 106 CO2 mmol/L 29 22 25 BUN mg/dL 22 20 14 CREATININE mg/dL 0.82 0.74 0.64 GLUCOSE mg/dL 165* 223* 163* MAGNESIUM mg/dL 1.5* 1.6* 1.2* CALCIUM mg/dL 9.3 9.1 9.2 Results from last 7 days Lab Units 04/26/23 1735 AST U/L 41* ALT U/L 17 ALK PHOS U/L 63 BILIRUBIN TOTAL mg/dL 0.3 BILIRUBIN DIRECT mg/dL 0.1 Results from last 7 days Lab Units 04/30/23 1120 04/30/23 0737 04/29/23 2123 04/29/23 1640 04/29/23 1113 04/29/23 0824 POCT GLUCOSE mg/dL 150* 156* 209* 210* 210* 184* Historical Values: (Includes values prior to this admission) Lab Results Component Value Date TSH 1.24 04/29/2023 HDL 34 04/26/2023 LDL 51 04/26/2023 Lab Results Component Value Date [id number] 04/29/2023 Imaging Complete Echo (TTE) w/wo Imaging Agent, Strain, 3D, Bubble Study 1 1 [facility] Heart Station [address] [place] [address] [phone] (fax) Echocardiogram-[facility] Name: KIARA BLANC Study Date: 04/26/2023 03:54 PM B/P: 129 mmHg/77 mmHg HR: Date of : 1955 Location: [facility] Height: 66 in. Age: 68 year(s) Patient Room: 3131 Weight: 203 lb. Gender: Female Patient Status: InPt BSA: 2.01 m2 Indication: Chest Pain Examination: Echocardiogram (Complete), Lumason Contrast Image Quality: Technically difficult study the patient was uncooperative Patient Consent: Procedure explained to patient Conclusions Left Ventricle: The left ventricle appe (more content not included)...[facility] 04-30-2023 NotePhysical Therapy Physical Therapy Treatment Patient Name: Kiara Blanc : 1955 Today's Date: 04/30/2023 Patient Active Problem List Diagnosis Coronary artery disease involving [place] coronary artery of [place] heart without angina pectoris Hyperlipidemia, mixed Edema of lower extremity Chronic diastolic heart failure (CMS/HCC) Tobacco dependence NSTEMI (non-ST elevated myocardial infarction) (CMS/HCC) Acute cystitis without hematuria Hypoglycemia Traumatic rhabdomyolysis (CMS/HCC) Time : 12:30-13:00pm 04/30/23 1305 PT Last Visit PT Received On 04/30/23 General Subjective Channel Specialist had come back to put pt back to bed after she had been up for a while, upon verse writer entering the room pt was sitting in bedside chair with the call light going. Pt stated she had to go to the bathroom Cognition Orientation Level Oriented to person Dynamic Standing Balance Dynamic Standing-Balance Support Left upper extremity supported;Right upper extremity supported;With device Dynamic Standing-Balance (while ambulating to and from the bathroomo) Dynamic Standing Balance-Level of Assistance Contact guard Dynamic Standing-Comments no LOB Ambulation Ambulation Yes Ambulation 1 Surface 1 Level tile Device 1 Rolling walker Assistance 1 Contact guard Comments/Distance (ft) 1 18 ft x 2 Transfers Transfer Yes Transfers 2 Transfer From 2 Sit Transfer Type 2 To and from Transfer to 2 Stand Technique 2 Sit to stand;Stand to sit Transfer Device 2 rolling walker Transfer Level of Assistance 2 Contact guard Transfers 3 Transfer From 3 Stand Transfer Type 3 To Transfer to 3 Sit;Toilet Technique 3 Lateral (sidestepping and stepping backwards) Transfer Device 3 rolling walker Transfer Level of Assistance 3 Minimum assistance Other Activity Other Activity 2 pt wanted to go back to her chair and not her bed . ,Chair alarm on Plan PT Discharge Recommendations jail facility placement Goals: Multi-Disciplinary Problems (from Physical Therapy) Active Problems Problem: PT Misc Start Date: 04/29/23 Goal Start Date Expected End Date End Date Patient to demonstrate the ability to complete all bed mobility independently 04/29/23 05/13/23 -- Goal Details: Progress HOB to flat Goal Start Date Expected End Date End Date Patient to demonstrate the ability to complete all transfers independently with use of RW as needed 04/29/23 05/13/23 -- Goal Start Date Expected End Date End Date Patient to demo the ability to ambulate 50 ft with SBA and use of RW as needed 04/29/23 05/13/23 -- Goal Start Date Expected End Date End Date Patient to maintain balance throughout all functional tasks 04/29/23 05/13/23 -- Goal Start Date Expected End Date End Date Patient to participate in BLE exercise to improve strength and limit effects of immobility 04/29/23 05/13/23 --[facility]08-08-2023 Note Attestation signed by Fercho Le MD at 04/30/2023 9:35 PM I personally saw and examined the patient on the same date of service as resident/fellow Tamera Cervantes. I discussed the findings and therapeutic plan with the resident/fellow Tamera Cervantes. I agree with the documentation, except for any edits/updates below. Teaching Physician's Revisions: Today she appears to be more alert and awake and is responding appropriately to questions. We will proceed with cardiac catheterization tomorrow. Subjective No acute events overnight. Seen and examined at bedside in the a.m.. Still denies any chest pain, shortness of breath, dizziness, palpitation, nausea or vomiting, when asked. Reported hx of baseline dementia. Objective Patient Vitals for the past 24 hrs: BP Temp Temp src Pulse Resp SpO2 Weight 04/30/23 0400 129/82 36.4 ???C (97.6 ???F) -- 98 16 93 % 86.5 kg (190 lb 11.2 oz) 04/30/23 0000 115/61 36.7 ???C (98.1 ???F) -- 94 19 94 % -- 04/29/23 2000 130/82 36.6 ???C (97.9 ???F) -- 105 20 95 % -- 04/29/23 1600 107/72 36.2 ???C (97.2 ???F) Temporal 95 20 91 % -- 04/29/23 1200 99/56 36.3 ???C (97.4 ???F) Temporal 96 22 92 % -- Physical Exam Constitutional: Appearance: appears chronically ill. HENT: Head: Atraumatic. Cardiovascular: Rate and Rhythm: Normal rate and regular rhythm. Heart sounds: Normal heart sounds. Abdominal: General: Bowel sounds are normal. Musculoskeletal: General: Normal range of motion. Cervical back: Neck supple. Skin: General: Skin is warm. Neurological: General: No focal deficit present. Mental Status: She is alert. Mental status is at baseline. Psychiatric: Mood and Affect: appears altered Lab Results Component Value Date NA 144 04/30/2023 K 3.7 04/30/2023 CL 108 (H) 04/30/2023 ANIONGAP 11 04/30/2023 BUN 22 04/30/2023 CREATININE 0.82 04/30/2023 CALCIUM 9.3 04/30/2023 MG 1.5 (L) 04/30/2023 Lab Results Component Value Date BILITOT 0.3 04/26/2023 BILIDIR 0.1 04/26/2023 ALKPHOS 63 04/26/2023 AST 41 (H) 04/26/2023 ALT 17 04/26/2023 PROT 5.6 (L) 04/26/2023 ALBUMIN 3.0 (L) 04/26/2023 Lab Results Component Value Date WBC 7.42 04/29/2023 RBC 4.59 04/29/2023 HGB 13.1 04/29/2023 HCT 38.2 04/29/2023 MCV 83.2 04/29/2023 MCH 28.5 04/29/2023 MCHC 34.3 04/29/2023 RDW 13.2 04/29/2023 NEUTOPHILPCT 60.6 04/26/2023 LYMPHOPCT 23.0 04/26/2023 MONOPCT 11.5 04/26/2023 EOSPCT 3.3 04/26/2023 BASOPCT 0.6 04/26/2023 NEUTROABS 4.37 04/26/2023 LYMPHSABS 1.66 04/26/2023 MONOSABS 0.83 04/26/2023 EOSABS 0.24 04/26/2023 BASOSABS 0.04 04/26/2023 PLT 305 04/29/2023 NRBC 0.0 04/26/2023 Encounter Date: 04/26/23 ECG 12 lead Result Value Ventricular Rate 83 Atrial Rate 83 MI Interval 178 QRS DURATION 88 QT Interval 414 QTC CALCULATION(BAZETT) 486 P Alva 64 R-Alva -19 T Wave Alva 152 Impression Sinus rhythm with occasional Premature ventricular complexes Septal infarct , age undetermined Prolonged QT interval Abnormal ECG When compared with ECG of 16-MAR-2022 12:13, Premature ventricular complexes are now Present T wave inversion no longer evident in Anterolateral leads QT has lengthened Confirmed by Vera MARTINEZ, L.S. (2) on 04/26/2023 4:09:15 PM TTE 02/2022 Left Ventricle: The left ventricle is mildly enlarged. Global left ventricular systolic function is mildly reduced. The EF is 45 % visually. Left ventricular wall thickness is mildly increased. Regional wall motion abnormalities (see diagram). Concentric left ventricular hypertrophy. Right Ventricle: The right ventricle is normal in size. Mildly reduced right ventricular systolic function. Unable to assess right sided pressures due to lack of measurable tricuspid regurgitation. Left Atrium: The left atrium is normal in size. Overall Conclusions: Due to suboptimal imaging Lumason contrast was administered for opacification and better delineation of endocardial borders. TTE 04/26/2023 Left Ventricle: The left ventricle appears normal in size. Global left ventricular systolic function is severely reduced. The EF is 30 % visually. Left ventricular wall thickness is normal. Right Ventricle: The right ventricle appears normal in size. Right ventricular systolic function appears reduced. Unable to assess right sided pressures due to lack of measurable tricuspid regurgitation. Left Atrium: The left atrium appears normal in size. Overall Conclusions: Due to suboptimal imaging, Lumason contrast was administered for better delineation of the left ventricular apex CABG 05/07/2017 PROCEDURES PERFORMED: Coronary artery bypass grafting x4 (2 arterial, 2 venous): 1. PARKER to LAD 2. left radial artery graft to the OM-1 3. Saphenous vein graft to the OM-2, (more content not included)...[facility] 04-30-2023 NoteSubjective Patient did not sleep well last night. Seen and examined at bedside in the a.m. Patient was in deep sleep after receiving Seroquel for confusion and agitation yesterday. No chest pain, shortness of breath, dizziness, palpitation, nausea or vomiting, reported. Objective Patient Vitals for the past 24 hrs: BP Temp Temp src Pulse Resp SpO2 Weight 04/30/23 0400 129/82 36.4 ???C (97.6 ???F) -- 98 16 93 % 86.5 kg (190 lb 11.2 oz) 04/30/23 0000 115/61 36.7 ???C (98.1 ???F) -- 94 19 94 % -- 04/29/23 2000 130/82 36.6 ???C (97.9 ???F) -- 105 20 95 % -- 04/29/23 1600 107/72 36.2 ???C (97.2 ???F) Temporal 95 20 91 % -- 04/29/23 1200 99/56 36.3 ???C (97.4 ???F) Temporal 96 22 92 % -- Physical Exam Constitutional: Appearance: appears chronically ill. HENT: Head: Atraumatic. Cardiovascular: Rate and Rhythm: Normal rate and regular rhythm. Heart sounds: Normal heart sounds. Abdominal: General: Bowel sounds are normal. Musculoskeletal: General: Normal range of motion. Cervical back: Neck supple. Skin: General: Skin is warm. Neurological: General: No focal deficit present. Mental Status: She is alert. Mental status is at baseline. Psychiatric: Mood and Affect: appears altered Lab Results Component Value Date NA 144 04/30/2023 K 3.7 04/30/2023 CL 108 (H) 04/30/2023 ANIONGAP 11 04/30/2023 BUN 22 04/30/2023 CREATININE 0.82 04/30/2023 CALCIUM 9.3 04/30/2023 MG 1.5 (L) 04/30/2023 Lab Results Component Value Date BILITOT 0.3 04/26/2023 BILIDIR 0.1 04/26/2023 ALKPHOS 63 04/26/2023 AST 41 (H) 04/26/2023 ALT 17 04/26/2023 PROT 5.6 (L) 04/26/2023 ALBUMIN 3.0 (L) 04/26/2023 Lab Results Component Value Date WBC 7.42 04/29/2023 RBC 4.59 04/29/2023 HGB 13.1 04/29/2023 HCT 38.2 04/29/2023 MCV 83.2 04/29/2023 MCH 28.5 04/29/2023 MCHC 34.3 04/29/2023 RDW 13.2 04/29/2023 NEUTOPHILPCT 60.6 04/26/2023 LYMPHOPCT 23.0 04/26/2023 MONOPCT 11.5 04/26/2023 EOSPCT 3.3 04/26/2023 BASOPCT 0.6 04/26/2023 NEUTROABS 4.37 04/26/2023 LYMPHSABS 1.66 04/26/2023 MONOSABS 0.83 04/26/2023 EOSABS 0.24 04/26/2023 BASOSABS 0.04 04/26/2023 PLT 305 04/29/2023 NRBC 0.0 04/26/2023 Encounter Date: 04/26/23 ECG 12 lead Result Value Ventricular Rate 83 Atrial Rate 83 MI Interval 178 QRS DURATION 88 QT Interval 414 QTC CALCULATION(BAZETT) 486 P Alva 64 R-Alva -19 T Wave Alva 152 Impression Sinus rhythm with occasional Premature ventricular complexes Septal infarct , age undetermined Prolonged QT interval Abnormal ECG When compared with ECG of 16-MAR-2022 12:13, Premature ventricular complexes are now Present T wave inversion no longer evident in Anterolateral leads QT has lengthened Confirmed by Vera MARTINEZ, L.S. (2) on 04/26/2023 4:09:15 PM TTE 02/2022 Left Ventricle: The left ventricle is mildly enlarged. Global left ventricular systolic function is mildly reduced. The EF is 45 % visually. Left ventricular wall thickness is mildly increased. Regional wall motion abnormalities (see diagram). Concentric left ventricular hypertrophy. Right Ventricle: The right ventricle is normal in size. Mildly reduced right ventricular systolic function. Unable to assess right sided pressures due to lack of measurable tricuspid regurgitation. Left Atrium: The left atrium is normal in size. Overall Conclusions: Due to suboptimal imaging Lumason contrast was administered for opacification and better delineation of endocardial borders. TTE 04/26/2023 Left Ventricle: The left ventricle appears normal in size. Global left ventricular systolic function is severely reduced. The EF is 30 % visually. Left ventricular wall thickness is normal. Right Ventricle: The right ventricle appears normal in size. Right ventricular systolic function appears reduced. Unable to assess right sided pressures due to lack of measurable tricuspid regurgitation. Left Atrium: The left atrium appears normal in size. Overall Conclusions: Due to suboptimal imaging, Lumason contrast was administered for better delineation of the left ventricular apex CABG 05/07/2017 PROCEDURES PERFORMED: Coronary artery bypass grafting x4 (2 arterial, 2 venous): 1. PARKER to LAD 2. left radial artery graft to the OM-1 3. Saphenous vein graft to the OM-2, and 4. Saphenous vein graft to the PDA; Exploration and dissection of the diagonal branch of the LAD; endarterectomy of the OM-1; endoscopic harvesting of the left upper extremity radial artery; endoscopic harvesting of the left greater saphenous vein graft. Assessment/Plan NSTEMI (non-ST elevated myocardial infarction) (CMS/[facility]) CAD s/p CABG x4 (PARKER-LAD, L radial-OM 1, SVG-OM2, SVG-PDA) in 05/07/2017 HFrEF, 30%, newly reduced, unable to reliably assess NYHA at this point, diabetes mellitus Hypoglycemia Rhabdomyolysis AMS HLD Tobacco use Acute cystitis without hematuria Traumatic rhab (more content not included)...[facility] 04-29-2023 NoteHospital Medicine Daily Progress Note - 04/29/2023 3:04 PM; Room: [address] [place] [address] Admission: 04/26/2023 1:50 PM; Length of stay: 3 days THE HOSPITALIST TEAM PREFERS TO USE [employer] CHAT FOR COMMUNICATION 7AM-7PM. IF I DO NOT RESPOND WITHIN 15 MINUTES, PLEASE PAGE ME/CALL THROUGH THE CABLE SPLICER APPRENTICE. FROM 7PM-7AM, PLEASE PAGE [phone](COVR) Code Status: Full Code Discharge Destination: long term facility Discharge planning: Pending psych eval Overview Patient is seen for evaluation and management of NSTEMI. Subjective Patient is confused at her baseline and pulling out lines. Patient slept well with Seroquel. She is currently lethargic but arousable. Physical Exam Visit Vitals BP 99/56 Pulse 96 Temp 36.3 ???C (97.4 ???F) (Temporal) Resp 22 Intake/Output Summary (Last 24 hours) at 04/29/2023 1504 Last data filed at 04/29/2023 1052 Gross per 24 hour Intake 320 ml Output 675 ml Net -355 ml Physical Exam Constitutional: Comments: Lethargic but arousable Cardiovascular: Rate and Rhythm: Normal rate and regular rhythm. Pulmonary: Effort: Pulmonary effort is normal. Breath sounds: Normal breath sounds. Abdominal: General: Abdomen is flat. Palpations: Abdomen is soft. Neurological: Comments: Oriented x1 Estimated body mass index is 31.28 kg/m??? as calculated from the following: Height as of this encounter: 1.676 m (5' 6 ). Weight as of this encounter: 87.9 kg (193 lb 12.6 oz). Active Inpatient Problems Principal Problem: NSTEMI (non-ST elevated myocardial infarction) ([facility]) Active Problems: Acute cystitis without hematuria Hypoglycemia Traumatic rhabdomyolysis ([facility]) Assessment and Plan # NSTEMI: # New onset HrEF 30%: - Completed heparin for 48 hours. - Lopressor changed to Toprol. Added Entresto, spironolactone and Farxiga. - Cardio recommended medical treatment due to dementia. Continue aspirin, Plavix and Lipitor. # Syncope, suspected due to hypoglycemia: - Echo showed no valvular disease. # HypoMg and hypokalemia, improving: - We will replace. # Traumatic rhabo, resolved. # CAD s/p CABG in 2016: - Continue aspirin, Plavix and Lipitor. Lopressor changed to Toprol 25 mg due to reduced EF. # IDDM2 with hypoglycemia, improving: - A1C is 9. - Reduce Lantus to 20 U BID. - Monitor glucose closely. # Dementia with behavioral disturbances: - CT brain at OSH showed no acute event. - UA showed no UTI. - Seroquel as needed. - Psych was consulted. Nutrition Screen VTE Prophylaxis: Lovenox Scheduled Meds aspirin, 81 mg, oral, Daily atorvastatin, 40 mg, oral, Nightly dapagliflozin propanediol, 10 mg, oral, Daily [START ON 04/30/2023] enoxaparin, 40 mg, subcutaneous, q24h KAYLYN insulin aspart, 0-20 Units, subcutaneous, TID with meals insulin glargine, 20 Units, subcutaneous, BID metoprolol succinate XL, 25 mg, oral, Daily sacubitril-valsartan, 1 tablet, oral, BID spironolactone, 25 mg, oral, Daily Pertinent Investigations Hematology: Results from last 7 days Lab Units 04/29/23 0555 04/28/23 0729 WBC AUTO 10*3/uL 7.42 8.52 HEMOGLOBIN g/dL 13.1 12.6 HEMATOCRIT % 38.2 37.1 MCV fL 83.2 83.0 PLATELETS AUTO 10*3/uL 305 313 Chemistry: Results from last 7 days Lab Units 04/29/23 0555 04/28/23 0728 04/27/23 0858 SODIUM mmol/L 139 139 140 POTASSIUM mmol/L 3.8 3.8 3.4* CHLORIDE mmol/L 106 106 111* CO2 mmol/L 22 25 25 BUN mg/dL 20 14 9 CREATININE mg/dL 0.74 0.64 0.63 GLUCOSE mg/dL 223* 163* 134* MAGNESIUM mg/dL 1.6* 1.2* -- CALCIUM mg/dL 9.1 9.2 7.9* Results from last 7 days Lab Units 04/26/23 1735 AST U/L 41* ALT U/L 17 ALK PHOS U/L 63 BILIRUBIN TOTAL mg/dL 0.3 BILIRUBIN DIRECT mg/dL 0.1 Results from last 7 days Lab Units 04/29/23 1113 04/29/23 0824 04/28/23 2020 04/28/23 1637 04/28/23 1138 04/28/23 0752 POCT GLUCOSE mg/dL 210* 184* 205* 223* 185* 146* Historical Values: (Includes values prior to this admission) Lab Results Component Value Date TSH 1.24 04/29/2023 HDL 34 04/26/2023 LDL 51 04/26/2023 Lab Results Component Value Date [id number] 04/29/2023 Imaging Complete Echo (TTE) w/wo Imaging Agent, Strain, 3D, Bubble Study 1 1 [facility] Heart Station [address] [place] [address] [phone] (fax) Echocardiogram-[facility] Name: KIARA BLANC Study Date: 04/26/2023 03:54 PM B/P: 129 mmHg/77 mmHg HR: Date of : 1955 Location: [facility] Height: 66 in. Age: 68 year(s) Patient Room: 3131 Weight: 203 lb. Gender: Female Patient Status: InPt BSA: 2.01 m2 Indication: Chest Pain Examination: Echocardiogram (Complete), Lumason Contrast Image Quality: Technically difficult study the patient was uncooperative Patient Consent: Procedure explained to patient Conclusions Left Ventricle: The left ventricle appears normal in size. Global left ventricular systolic function is sever (more content not included)...[facility]08-07-2023 NotePhysical Therapy Physical Therapy Evaluation Patient Name: Kiara Blanc : 1955 Today's Date: 04/29/2023 Patient is a 68 y/o female who presented to [facility] 04/26/2023 from OSH for cardiology evaluation. Presented to OSH from home after being found down x2-3 days, rhabdo/UTI/hypoglycemia with elevated troponin of 2.45 currently trending down. At this time patient is resistive to all attempted evaluation and mobility with AMS. General Subjective: RN approved PT evaluation and OOB activity this date. Patient in bed upon arrival, impaired cognition. Upon completion of evaluation, patient left in bed with BUE Mitts in place, 4 bed rails up, bed alarm ON PT Diagnosis: Impaired cognition, functional mobility. Patient Active Problem List Diagnosis Coronary artery disease involving [place] coronary artery of [place] heart without angina pectoris Hyperlipidemia, mixed Edema of lower extremity Chronic diastolic heart failure (CMS/HCC) Tobacco dependence NSTEMI (non-ST elevated myocardial infarction) (CMS/HCC) Acute cystitis without hematuria Hypoglycemia Traumatic rhabdomyolysis (CMS/HCC) History reviewed. No pertinent past medical history. History reviewed. No pertinent surgical history. Precautions Precautions Medical Precautions: bed alarm, 4 bedrails, IV, bilateral mitts, telemetry, fall risk Pain Pain Assessment Pain Assessment: Whitman-Cavazos FACES Pain Score: 0 - No pain Cognition Cognition Overall Cognitive Status: Impaired Arousal/Alertness: Generalized responses Orientation Level: Oriented to person (Does not answer/unable to answer other orientation questions) Following Commands: Inconsistently follows commands (Able to follow commands to squeeze hand, otherwise does not follow appropriate/puroseful commands) Awareness of Errors: Decreased awareness of errors General Assessment General Assessment Hearing: Apppears Intact Home Living Home Living Type of Home: Other (Comment) (Unknown - patient unable to provide any history. Sttes she is , RN reports she believes the patient lives with her .) Prior Level of Function Prior Function Prior Functional Mobility: Other (Comment) (Unknown - patient unable to state. Assume patient is fairly ambulatory at baseline. .) Vision Basic Assessment Activity Tolerance Activity Tolerance Endurance: Stage II General Assessments Activity Tolerance Endurance: Stage II Sensation Light Touch: No apparent deficits Coordination Movements are Fluid and Coordinated: No Postural Control Postural Control: Deficits on evaluation (Difficult to assess as patient very resistant to any mobility or assessments.) Static Sitting Balance Static Sitting-Level of Assistance: Close supervision Dynamic Sitting Balance Dynamic Sitting Balance-Level of Assistance: Minimum assistance (Concern for patient safety 2/2 cognition, balance at baseline is likely near independent) Functional Assessments Bed Mobility Bed Mobility: Yes Bed Mobility 1 Bed Mobility From 1: Supine Bed Mobility Type 1: To and from Bed Mobility to 1: Short sit Level of Assistance 1: Maximum assistance Bed Mobility Comments 1: Max (A) x1 primarily because of patient resistance and cognition. Assume that at baseline she is near independent for baseline. Not following commands Transfers Transfer: Yes (Attempted stand x1 though patient resisted attempt - unable to complete at this time.) Ambulation Ambulation: No Extremity Assessments RUE Assessment RUE Assessment: Within Functional Limits (Based on observation) LUE Assessment LUE Assessment: Within Functional Limits (Based on observation) RLE Assessment RLE Assessment: Exceptions to WFL (Unable to formally assess, patient not following purposeful commands for assessment. BLE present with ridgitity likely from resistance from patient.) LLE Assessment LLE Assessment: Exceptions to WFL (Unable to formally assess, patient not following purposeful commands for assessment. BLE present with ridgitity likely from resistance from patient.) Outcome Assessments 6 Clicks (Mobility) Help from another person turning from your back to your side while in a flat bed without using bedrails: A lot Help from another person moving from lying on your back to sitting on the side of a flat bed without using bedrails: A lot Help from another person moving to and from a bed to a chair (including a wheelchair): A lot Help from another person standing up from a chair using your arms (e.g. wheelchair or bedside chair): A lot Help from another person to walk in hospital room: Total Help from another person climbing 3-5 steps with a railing: Total Mobility 6 Clicks T-Score: 10 Assessment/Plan PT Assessment Impairments: Decreased endurance, Impaired balance, Decreased mobility, Decreased cognition PT Assessment: Patient is a 68 y/o (more content not included)...[facility]08-07-2023 Note Attestation signed by Fercho Le MD at 04/29/2023 5:46 PM I personally saw and examined the patient on the same date of service as resident/fellow Tamera Cervantes. I discussed the findings and therapeutic plan with the resident/fellow Tamera Cervantes. I agree with the documentation, except for any edits/updates below. Teaching Physician's Revisions: There is still concern regarding the patient's mental status and whether she is even able to consent to the procedure of cardiac catheterization. At this time we will hold off. Pending neurology and psych consult. Subjective Patient did not sleep well last night. Seen and examined at bedside in the a.m. Patient was in deep sleep after receiving Seroquel for confusion and agitation yesterday. No chest pain, shortness of breath, dizziness, palpitation, nausea or vomiting, reported. Objective Patient Vitals for the past 24 hrs: BP Temp Temp src Pulse Resp SpO2 Weight 04/29/23 1200 99/56 36.3 ???C (97.4 ???F) Temporal 96 22 92 % -- 04/29/23 0810 129/88 36 ???C (96.8 ???F) Temporal 101 18 94 % -- 04/29/23 0400 -- -- -- -- -- -- 87.9 kg (193 lb 12.6 oz) 04/29/23 0030 131/81 35.9 ???C (96.7 ???F) Temporal 102 22 96 % -- 04/28/23 1727 -- -- -- (!) 115 -- -- -- 04/28/23 1600 146/90 36.4 ???C (97.5 ???F) Temporal 96 24 96 % -- Physical Exam Constitutional: Appearance: appears chronically ill. HENT: Head: Atraumatic. Cardiovascular: Rate and Rhythm: Normal rate and regular rhythm. Heart sounds: Normal heart sounds. Abdominal: General: Bowel sounds are normal. Musculoskeletal: General: Normal range of motion. Cervical back: Neck supple. Skin: General: Skin is warm. Neurological: General: No focal deficit present. Mental Status: She is alert. Mental status is at baseline. Psychiatric: Mood and Affect: appears altered Lab Results Component Value Date NA 139 04/29/2023 K 3.8 04/29/2023 CL 106 04/29/2023 ANIONGAP 15 04/29/2023 BUN 20 04/29/2023 CREATININE 0.74 04/29/2023 CALCIUM 9.1 04/29/2023 MG 1.6 (L) 04/29/2023 Lab Results Component Value Date BILITOT 0.3 04/26/2023 BILIDIR 0.1 04/26/2023 ALKPHOS 63 04/26/2023 AST 41 (H) 04/26/2023 ALT 17 04/26/2023 PROT 5.6 (L) 04/26/2023 ALBUMIN 3.0 (L) 04/26/2023 Lab Results Component Value Date WBC 7.42 04/29/2023 RBC 4.59 04/29/2023 HGB 13.1 04/29/2023 HCT 38.2 04/29/2023 MCV 83.2 04/29/2023 MCH 28.5 04/29/2023 MCHC 34.3 04/29/2023 RDW 13.2 04/29/2023 NEUTOPHILPCT 60.6 04/26/2023 LYMPHOPCT 23.0 04/26/2023 MONOPCT 11.5 04/26/2023 EOSPCT 3.3 04/26/2023 BASOPCT 0.6 04/26/2023 NEUTROABS 4.37 04/26/2023 LYMPHSABS 1.66 04/26/2023 MONOSABS 0.83 04/26/2023 EOSABS 0.24 04/26/2023 BASOSABS 0.04 04/26/2023 PLT 305 04/29/2023 NRBC 0.0 04/26/2023 Encounter Date: 04/26/23 ECG 12 lead Result Value Ventricular Rate 83 Atrial Rate 83 MI Interval 178 QRS DURATION 88 QT Interval 414 QTC CALCULATION(BAZETT) 486 P Alva 64 R-Alva -19 T Wave Alva 152 Impression Sinus rhythm with occasional Premature ventricular complexes Septal infarct , age undetermined Prolonged QT interval Abnormal ECG When compared with ECG of 16-MAR-2022 12:13, Premature ventricular complexes are now Present T wave inversion no longer evident in Anterolateral leads QT has lengthened Confirmed by Vera MARTINEZ, L.S. (2) on 04/26/2023 4:09:15 PM TTE 02/2022 Left Ventricle: The left ventricle is mildly enlarged. Global left ventricular systolic function is mildly reduced. The EF is 45 % visually. Left ventricular wall thickness is mildly increased. Regional wall motion abnormalities (see diagram). Concentric left ventricular hypertrophy. Right Ventricle: The right ventricle is normal in size. Mildly reduced right ventricular systolic function. Unable to assess right sided pressures due to lack of measurable tricuspid regurgitation. Left Atrium: The left atrium is normal in size. Overall Conclusions: Due to suboptimal imaging Lumason contrast was administered for opacification and better delineation of endocardial borders. TTE 04/26/2023 Left Ventricle: The left ventricle appears normal in size. Global left ventricular systolic function is severely reduced. The EF is 30 % visually. Left ventricular wall thickness is normal. Right Ventricle: The right ventricle appears normal in size. Right ventricular systolic function appears reduced. Unable to assess right sided pressures due to lack of measurable tricuspid regurgitation. Left Atrium: The left atrium appears normal in size. Overall Conclusions: Due to suboptimal imaging, Lumason contrast was administered for better delineation of the left ventricular apex CABG 05/07/2017 PROCEDURES PERFORMED: Coronar (more content not included)...[facility]08-07-2023 NoteOccupational Therapy Occupational Therapy Evaluation Patient Name: Kiara Blanc : 1955 Today's Date: 04/29/2023 Time In: 1051 Time Out: 1106 History of Present Illness Kiara Blanc is an 68 y.o. female who came from [facility] for NSTEMI. Patient was admittied initailly at [facility] with known history of CAD, HLD, CAD, smoker, chronic diastolic HF w NYHA Class II, diabetes mellitus presents to hospital today as a direct transfer for cardiology service evaluation. Patient had initially presented at outside facility by ambulance after he was found on floor lying between while in couch yesterday on 04/25where he has she has been lying for a few days in her stool per report. On arrival, patient was altered, underwent trauma work-up which was within normal limits. Patient is nonparticipatory in history and does not offer any meaningful information, she does not remember events. Over at at the facility on arrival, she was noted to have rhabdomyolysis, suspected UTI and hypoglycemia and initial troponin was slightly elevated. Patient was admitted at their facility for IV resuscitation, started on empiric Rocephin and troponin curve was trended. Patient denies any chest pain or any symptoms associated with her symptoms. During the hospitalization up until 04 26 today, her high sensitive troponin increased from 100 to over 1000. Case was discussed with our cardiology service here and she was subsequently transferred here for cardiac evaluation. She was started on aspirin and heparin drip was commenced. Additionally, patient had episode of hypoglycemia in the hospital over there with dropping as low as 30s and subsequently started on a dextrose drip. is also reported, patient has history of noncompliance to her medications, on last cardiology notes review she was supposed to be on aspirin and Plavix, she has a very difficult poor living situation and EMS has called Adult Protective Services multiple times for this patient in the past. # NSTEMI: # Drop in EF to 30%: - Continue heparin drip. - Lopressor changed to Toprol. Added Entresto, spironolactone and Farxiga. - Cardiac cath likely on Saturday. # Syncope, suspected due to hypoglycemia: - Echo showed no valvular disease. # HypoMg and hypokalemia: - We will replace. # Traumatic rhabo, resolved. General Subjective: mildly agitated and resistive to mobility., minimal eye opening during eval and resistive to yes / no questions Patient Active Problem List Diagnosis Coronary artery disease involving [place] coronary artery of [place] heart without angina pectoris Hyperlipidemia, mixed Edema of lower extremity Chronic diastolic heart failure (CMS/HCC) Tobacco dependence NSTEMI (non-ST elevated myocardial infarction) (CMS/HCC) Acute cystitis without hematuria Hypoglycemia Traumatic rhabdomyolysis (CMS/HCC) History reviewed. No pertinent past medical history. History reviewed. No pertinent surgical history. Precautions Precautions Medical Precautions: bed alarm (B hand mitts, bed rails X4 per nsg) Pain Pain Assessment Pain Score: 0 - No pain Cognition Cognition Overall Cognitive Status: Impaired Arousal/Alertness: Generalized responses Orientation Level: Oriented to person Following Commands: Does not follow commands Awareness of Errors: Decreased awareness of errors Attention Span: Difficulty attending to directions Communication: Intact General Assessment General Assessment Hearing: (wfl) Home Living Home Living Type of Home: (unknown, nsg reports she lives with ) Prior Level of Function Prior Function Level of Callahan: (unknown , based on body habitus likely near indep for adls) Static Sitting Balance Static Sitting Balance Static Sitting-Level of Assistance: Close supervision Dynamic Sitting Balance Dynamic Sitting Balance Dynamic Sitting Balance-Level of Assistance: Minimum assistance Static Standing Balance Static Standing Balance Static Standing-Level of Assistance: (attempted X1 but patient resisted) ADL ADL LE Dressing Assistance: Total (primarily due to poor participation) Bed Mobility Bed Mobility Bed Mobility: (max A supine to sit , sit EOB unsupported a few minutes and max A to return to supine) Objective Extremity Assessments RUE Assessment RUE Assessment: (BUE observed antigravity to at least 3/5 strength) Outcome Assessments AM-PAC 6 Clicks Putting on and taking off regular lower body clothing?: Unable (Total Assist) Bathing(Including washing,rinsing,drying)?: Unable (Total Assist) Toileting, which includes using the toilet,bedpan,or urinal?: Unable (Total Assist) Putting on and taking off regular upper body clothing?: Unable (Total Assist) Taking care of personal grooming such as brushing teeth?: Unable (Total Assist) Eating meals?: Unable (Total Assist) Total Score (more content not included)...[facility] 04-28-2023 Note Attestation signed by Fercho Le MD at 04/28/2023 8:42 PM I personally saw and examined the patient on the same date of service as resident/fellow Tamera Cervantes. I discussed the findings and therapeutic plan with the resident/fellow Tamera Cervantes. I agree with the documentation, except for any edits/updates below. Teaching Physician's Revisions: On examination today she is seems to be not well oriented and possibly encephalopathic. We we will hold off on plans for cardiac catheterization for the time being until the neurological status is clarified. We recommend consultation with neurology. We will continue to follow with you. Subjective Patient did not sleep well last night. Seen and examined at bedside in the a.m. Patient is more confused and agitated pulling out lines. Still denies any chest pain, shortness of breath, dizziness, palpitation, nausea or vomiting, when asked. Reported hx of baseline dementia. Objective Patient Vitals for the past 24 hrs: BP Temp Temp src Pulse Resp SpO2 Weight 04/28/23 1727 -- -- -- (!) 115 -- -- -- 04/28/23 1600 146/90 36.4 ???C (97.5 ???F) Temporal 96 24 96 % -- 04/28/23 1140 145/75 36.3 ???C (97.3 ???F) Temporal 92 20 95 % -- 04/28/23 0740 157/81 36.1 ???C (97 ???F) Temporal 86 15 97 % -- 04/28/23 0359 -- -- -- -- -- -- 89.8 kg (197 lb 15.6 oz) 04/28/23 0000 137/76 35.9 ???C (96.7 ???F) Temporal 87 18 97 % -- Physical Exam Constitutional: Appearance: appears chronically ill. HENT: Head: Atraumatic. Cardiovascular: Rate and Rhythm: Normal rate and regular rhythm. Heart sounds: Normal heart sounds. Abdominal: General: Bowel sounds are normal. Musculoskeletal: General: Normal range of motion. Cervical back: Neck supple. Skin: General: Skin is warm. Neurological: General: No focal deficit present. Mental Status: She is alert. Mental status is at baseline. Psychiatric: Mood and Affect: appears altered Lab Results Component Value Date NA 139 04/28/2023 K 3.8 04/28/2023 CL 106 04/28/2023 ANIONGAP 12 04/28/2023 BUN 14 04/28/2023 CREATININE 0.64 04/28/2023 CALCIUM 9.2 04/28/2023 MG 1.2 (L) 04/28/2023 Lab Results Component Value Date BILITOT 0.3 04/26/2023 BILIDIR 0.1 04/26/2023 ALKPHOS 63 04/26/2023 AST 41 (H) 04/26/2023 ALT 17 04/26/2023 PROT 5.6 (L) 04/26/2023 ALBUMIN 3.0 (L) 04/26/2023 Lab Results Component Value Date WBC 8.52 04/28/2023 RBC 4.47 04/28/2023 HGB 12.6 04/28/2023 HCT 37.1 04/28/2023 MCV 83.0 04/28/2023 MCH 28.2 04/28/2023 MCHC 34.0 04/28/2023 RDW 13.4 04/28/2023 NEUTOPHILPCT 60.6 04/26/2023 LYMPHOPCT 23.0 04/26/2023 MONOPCT 11.5 04/26/2023 EOSPCT 3.3 04/26/2023 BASOPCT 0.6 04/26/2023 NEUTROABS 4.37 04/26/2023 LYMPHSABS 1.66 04/26/2023 MONOSABS 0.83 04/26/2023 EOSABS 0.24 04/26/2023 BASOSABS 0.04 04/26/2023 PLT 313 04/28/2023 NRBC 0.0 04/26/2023 Encounter Date: 04/26/23 ECG 12 lead Result Value Ventricular Rate 83 Atrial Rate 83 MI Interval 178 QRS DURATION 88 QT Interval 414 QTC CALCULATION(BAZETT) 486 P Alva 64 R-Alva -19 T Wave Alva 152 Impression Sinus rhythm with occasional Premature ventricular complexes Septal infarct , age undetermined Prolonged QT interval Abnormal ECG When compared with ECG of 16-MAR-2022 12:13, Premature ventricular complexes are now Present T wave inversion no longer evident in Anterolateral leads QT has lengthened Confirmed by Vera MARTINEZ, L.S. (2) on 04/26/2023 4:09:15 PM TTE 02/2022 Left Ventricle: The left ventricle is mildly enlarged. Global left ventricular systolic function is mildly reduced. The EF is 45 % visually. Left ventricular wall thickness is mildly increased. Regional wall motion abnormalities (see diagram). Concentric left ventricular hypertrophy. Right Ventricle: The right ventricle is normal in size. Mildly reduced right ventricular systolic function. Unable to assess right sided pressures due to lack of measurable tricuspid regurgitation. Left Atrium: The left atrium is normal in size. Overall Conclusions: Due to suboptimal imaging Lumason contrast was administered for opacification and better delineation of endocardial borders. TTE 04/26/2023 Left Ventricle: The left ventricle appears normal in size. Global left ventricular systolic function is severely reduced. The EF is 30 % visually. Left ventricular wall thickness is normal. Right Ventricle: The right ventricle appears normal in size. Right ventricular systolic function appears reduced. Unable to assess right sided pressures due to lack of measurable tricuspid regurgitation. Left Atrium: The left atrium appears normal in size. Overall Conclusions: Due to suboptimal imaging, Lumason contrast was administered for better (more content not included)...[facility]08-06-2023 Note Hospital Medicine Daily Progress Note - 04/28/2023 1:24 PM; Room: 3131/3131-01 Admission: 04/26/2023 1:50 PM; Length of stay: 2 days THE HOSPITALIST TEAM PREFERS TO USE [employer] FOR COMMUNICATION 7AM-7PM. IF I DO NOT RESPOND WITHIN 15 MINUTES, PLEASE PAGE ME/CALL THROUGH THE CABLE SPLICER APPRENTICE. FROM 7PM-7AM, PLEASE PAGE [phone](COVR) Code Status: Full Code Discharge Destination: TBD Discharge planning: Cath likely Saturday Overview Patient is seen for evaluation and management of NSTEMI. Subjective Patient is confused at her baseline and pulling out lines. Patient did not sleep well last night. Patient denies CP, SOB, N/V. Physical Exam Visit Vitals BP 145/75 (BP Location: Left arm, Patient Position: Lying) Pulse 92 Temp 36.3 ???C (97.3 ???F) (Temporal) Resp 20 Intake/Output Summary (Last 24 hours) at 04/28/2023 1324 Last data filed at 04/28/2023 0600 Gross per 24 hour Intake 720 ml Output 3576 ml Net -2856 ml Physical Exam Cardiovascular: Rate and Rhythm: Normal rate and regular rhythm. Pulmonary: Effort: Pulmonary effort is normal. Breath sounds: Normal breath sounds. Abdominal: General: Abdomen is flat. Palpations: Abdomen is soft. Neurological: Mental Status: She is alert. Comments: Oriented x1 Estimated body mass index is 31.95 kg/m??? as calculated from the following: Height as of this encounter: 1.676 m (5' 6 ). Weight as of this encounter: 89.8 kg (197 lb 15.6 oz). Active Inpatient Problems Principal Problem: NSTEMI (non-ST elevated myocardial infarction) ([facility]) Active Problems: Acute cystitis without hematuria Hypoglycemia Traumatic rhabdomyolysis ([facility]) Assessment and Plan # NSTEMI: # Drop in EF to 30%: - Continue heparin drip. - Lopressor changed to Toprol. Added Entresto, spironolactone and Farxiga. - Cardiac cath likely on Saturday. # Syncope, suspected due to hypoglycemia: - Echo showed no valvular disease. # HypoMg and hypokalemia: - We will replace. # Traumatic rhabo, resolved. # CAD s/p CABG: - Continue aspirin and Lipitor. Lopressor changed to Toprol 25 mg due to reduced EF. Hold Plavix for heart cath. # IDDM2 with hypoglycemia, improving: - Hold Lantus for now. - Monitor glucose closely. - Follow up A1C. # Dementia with behavioral disturbances: - CT brain at OSH showed no acute event. - Seroquel as needed. I could not get a hold of the . Nutrition Screen VTE Prophylaxis: IV heparin Scheduled Meds aspirin, 81 mg, oral, Daily atorvastatin, 40 mg, oral, Nightly [Held by provider] clopidogrel, 75 mg, oral, Daily dapagliflozin propanediol, 10 mg, oral, Daily insulin aspart, 0-20 Units, subcutaneous, TID with meals magnesium sulfate, 1 g, intravenous, q1h metoprolol succinate XL, 25 mg, oral, Daily sacubitril-valsartan, 1 tablet, oral, BID spironolactone, 25 mg, oral, Daily heparin, 0-28 Units/kg/hr, Last Rate: 11 Units/kg/hr (04/28/23 1140) Pertinent Investigations Hematology: Results from last 7 days Lab Units 04/28/23 0729 04/27/23 0545 WBC AUTO 10*3/uL 8.52 7.50 HEMOGLOBIN g/dL 12.6 11.7* HEMATOCRIT % 37.1 35.3* MCV fL 83.0 85.3 PLATELETS AUTO 10*3/uL 313 296 Chemistry: Results from last 7 days Lab Units 04/28/23 0728 04/27/23 0858 04/27/23 0545 04/26/23 1735 SODIUM mmol/L 139 140 -- 141 POTASSIUM mmol/L 3.8 3.4* -- 3.5 CHLORIDE mmol/L 106 111* -- 110* CO2 mmol/L 25 25 -- 25 BUN mg/dL 14 9 -- 12 CREATININE mg/dL 0.64 0.63 -- 0.70 GLUCOSE mg/dL 163* 134* -- 75 MAGNESIUM mg/dL 1.2* -- 1.3* 0.6* CALCIUM mg/dL 9.2 7.9* -- 8.4* Results from last 7 days Lab Units 04/26/23 1735 AST U/L 41* ALT U/L 17 ALK PHOS U/L 63 BILIRUBIN TOTAL mg/dL 0.3 BILIRUBIN DIRECT mg/dL 0.1 Results from last 7 days Lab Units 04/28/23 1138 04/28/23 0752 04/27/23 2148 04/27/23 1624 04/27/23 1121 04/27/23 0542 POCT GLUCOSE mg/dL 185* 146* 174* 235* 134* 129* Historical Values: (Includes values prior to this admission) Lab Results Component Value Date TSH 1.82 04/26/2023 HDL 34 04/26/2023 LDL 51 04/26/2023 Lab Results Component Value Date [id number] 436 2022 Imaging Complete Echo (TTE) w/wo Imaging Agent, Strain, 3D, Bubble Study 1 1 [facility] Heart Station [address] [place] [address] [phone] (fax) Echocardiogram-[facility] Name: KIARA BLANC Study Date: 04/26/2023 03:54 PM B/P: 129 mmHg/77 mmHg HR: Date of : 1955 Location: [facility] Height: 66 in. Age: 68 year(s) Patient Room: [facility] Weight: 203 lb. Gender: Female Patient Status: InPt BSA: 2.01 m2 Indication: Chest Pain Examination: Echocardiogram (Complete), Lumason Contrast Image Quality: Technically difficult study the patient was uncooperative Patient Consent: Procedure explained to patient Conclusions Left Ventricle: The left ventricle appears normal in size. Global left ventricular sy (more content not included)...[facility]08-05-2023 Note Attestation signed by Fercho Le MD at 04/27/2023 9:27 PM I personally saw and examined the patient on the same date of service as resident/fellow Tamera Cervantes. I discussed the findings and therapeutic plan with the resident/fellow Tamera Cervantes. I agree with the documentation, except for any edits/updates below. Teaching Physician's Revisions: She has coronary artery disease with prior bypass surgery. She presents today with altered mental status, elevated troponin consistent with possible NSTEMI and new reduction of ventricular systolic function consistent with acute systolic heart failure. She is currently in NYHA class II symptoms. I had a long discussion with her and her regarding the presentation. She will require coronary angiogram and bypass graft angiogram when medically stable and after ruling out other acute medical illnesses. Subjective No acute events overnight. Seen and examined at bedside in the a.m. Appears with better mentation today. Denies any chest pain, shortness of breath, dizziness, palpitation, nausea or vomiting. Objective Patient Vitals for the past 24 hrs: BP Temp Temp src Pulse Resp SpO2 Weight 04/27/23 1625 150/71 36.4 ???C (97.5 ???F) Temporal 85 18 100 % -- 04/27/23 1115 136/72 36.2 ???C (97.2 ???F) Temporal 77 21 99 % -- 04/27/23 0725 136/78 36.1 ???C (97 ???F) Temporal 91 15 98 % -- 04/27/23 0503 -- -- -- -- -- -- 91.4 kg (201 lb 8 oz) 04/27/23 0400 122/57 36.5 ???C (97.7 ???F) -- 75 14 100 % -- 04/27/23 0000 126/60 36.1 ???C (97 ???F) -- 85 17 98 % -- 04/26/23 2200 136/84 -- -- 91 17 98 % -- 04/26/23 2117 104/67 -- -- 96 22 97 % -- 04/26/23 1923 115/51 36.7 ???C (98 ???F) Temporal 96 17 100 % -- Physical Exam Constitutional: Appearance: appears chronically ill. HENT: Head: Atraumatic. Cardiovascular: Rate and Rhythm: Normal rate and regular rhythm. Heart sounds: Normal heart sounds. Abdominal: General: Bowel sounds are normal. Musculoskeletal: General: Normal range of motion. Cervical back: Neck supple. Skin: General: Skin is warm. Neurological: General: No focal deficit present. Mental Status: She is alert. Mental status is at baseline. Psychiatric: Mood and Affect: appears altered Lab Results Component Value Date NA 140 04/27/2023 K 3.4 (L) 04/27/2023 CL 111 (H) 04/27/2023 ANIONGAP 7 04/27/2023 BUN 9 04/27/2023 CREATININE 0.63 04/27/2023 CALCIUM 7.9 (L) 04/27/2023 MG 1.3 (L) 04/27/2023 Lab Results Component Value Date BILITOT 0.3 04/26/2023 BILIDIR 0.1 04/26/2023 ALKPHOS 63 04/26/2023 AST 41 (H) 04/26/2023 ALT 17 04/26/2023 PROT 5.6 (L) 04/26/2023 ALBUMIN 3.0 (L) 04/26/2023 Lab Results Component Value Date WBC 7.50 04/27/2023 RBC 4.14 04/27/2023 HGB 11.7 (L) 04/27/2023 HCT 35.3 (L) 04/27/2023 MCV 85.3 04/27/2023 MCH 28.3 04/27/2023 MCHC 33.1 04/27/2023 RDW 13.4 04/27/2023 NEUTOPHILPCT 60.6 04/26/2023 LYMPHOPCT 23.0 04/26/2023 MONOPCT 11.5 04/26/2023 EOSPCT 3.3 04/26/2023 BASOPCT 0.6 04/26/2023 NEUTROABS 4.37 04/26/2023 LYMPHSABS 1.66 04/26/2023 MONOSABS 0.83 04/26/2023 EOSABS 0.24 04/26/2023 BASOSABS 0.04 04/26/2023 PLT 296 04/27/2023 NRBC 0.0 04/26/2023 Encounter Date: 04/26/23 ECG 12 lead Result Value Ventricular Rate 83 Atrial Rate 83 MI Interval 178 QRS DURATION 88 QT Interval 414 QTC CALCULATION(BAZETT) 486 P Alva 64 R-Alva -19 T Wave Alva 152 Impression Sinus rhythm with occasional Premature ventricular complexes Septal infarct , age undetermined Prolonged QT interval Abnormal ECG When compared with ECG of 16-MAR-2022 12:13, Premature ventricular complexes are now Present T wave inversion no longer evident in Anterolateral leads QT has lengthened Confirmed by Vera MARTINEZ, L.S. (2) on 04/26/2023 4:09:15 PM TTE 02/2022 Left Ventricle: The left ventricle is mildly enlarged. Global left ventricular systolic function is mildly reduced. The EF is 45 % visually. Left ventricular wall thickness is mildly increased. Regional wall motion abnormalities (see diagram). Concentric left ventricular hypertrophy. Right Ventricle: The right ventricle is normal in size. Mildly reduced right ventricular systolic function. Unable to assess right sided pressures due to lack of measurable tricuspid regurgitation. Left Atrium: The left atrium is normal in size. Overall Conclusions: Due to suboptimal imaging Lumason contrast was administered for opacification and better delineation of endocardial borders. TTE 04/26/2023 Left Ventricle: The left ventricle appears normal in size. Global left ventricular systolic function is severely reduced. The EF is 30 % visually. Left ventricular wall thickness is normal. Right Ventricle: The right ventricle (more content not included)...[facility]08-05-2023 NoteHospital Medicine Daily Progress Note - 04/27/2023 1:18 PM; Room: [address] [place] [address] Admission: 04/26/2023 1:50 PM; Length of stay: 1 days THE HOSPITALIST TEAM PREFERS TO USE [employer] CHAT FOR COMMUNICATION 7AM-7PM. IF I DO NOT RESPOND WITHIN 15 MINUTES, PLEASE PAGE ME/CALL THROUGH THE CABLE SPLICER APPRENTICE. FROM 7PM-7AM, PLEASE PAGE [phone](COVR) Code Status: Full Code Discharge Destination: TBD Discharge planning: Cath likely Saturday Overview Patient is seen for evaluation and management of NSTEMI. Subjective Patient is confused at her baseline. Patient denies CP, SOB, N/V. Physical Exam Visit Vitals BP 136/72 (BP Location: Left arm, Patient Position: Lying) Pulse 77 Temp 36.2 ???C (97.2 ???F) (Temporal) Resp 21 Intake/Output Summary (Last 24 hours) at 04/27/2023 1318 Last data filed at 04/27/2023 1106 Gross per 24 hour Intake 2346.44 ml Output 2250 ml Net 96.44 ml Physical Exam Cardiovascular: Rate and Rhythm: Normal rate and regular rhythm. Pulmonary: Effort: Pulmonary effort is normal. Breath sounds: Normal breath sounds. Abdominal: General: Abdomen is flat. Palpations: Abdomen is soft. Neurological: Mental Status: She is alert. Comments: Oriented x2 Estimated body mass index is 32.52 kg/m??? as calculated from the following: Height as of this encounter: 1.676 m (5' 6 ). Weight as of this encounter: 91.4 kg (201 lb 8 oz). Active Inpatient Problems Principal Problem: NSTEMI (non-ST elevated myocardial infarction) ([facility]) Active Problems: Acute cystitis without hematuria Hypoglycemia Traumatic rhabdomyolysis ([facility]) Assessment and Plan # NSTEMI: # Drop in EF to 30%: - Continue heparin drip. - We will change Lopressor to Toprol and add Entresto, spironolactone and Farxiga. - Cardiac cath likely on Saturday. # Syncope, suspected due to hypoglycemia: - Echo showed no valvular disease. # HypoMg and hypokalemia: - We will replace. # Traumatic rhabo, resolved. # CAD s/p CABG: - Continue aspirin and Lipitor. Change Lopressor to Toprol 25 mg due to reduced EF. Hold Plavix for heart cath. # IDDM2 with hypoglycemia: - Hold Lantus for now. - Monitor glucose closely. - Follow up A1C. Nutrition Screen VTE Prophylaxis: IV heparin Scheduled Meds aspirin, 81 mg, oral, Daily atorvastatin, 40 mg, oral, Nightly [Held by provider] clopidogrel, 75 mg, oral, Daily dapagliflozin propanediol, 10 mg, oral, Daily insulin aspart, 0-20 Units, subcutaneous, q6h magnesium sulfate, 1 g, intravenous, q1h [START ON 04/28/2023] metoprolol succinate XL, 25 mg, oral, Daily metoprolol tartrate, 12.5 mg, oral, Once sacubitril-valsartan, 1 tablet, oral, BID spironolactone, 25 mg, oral, Daily heparin, 0-28 Units/kg/hr, Last Rate: 13 Units/kg/hr (04/27/23 1106) Pertinent Investigations Hematology: Results from last 7 days Lab Units 04/27/23 0545 04/26/23 1735 WBC AUTO 10*3/uL 7.50 7.21 HEMOGLOBIN g/dL 11.7* 12.0 HEMATOCRIT % 35.3* 35.6* MCV fL 85.3 84.8 PLATELETS AUTO 10*3/uL 296 301 Chemistry: Results from last 7 days Lab Units 04/27/23 0858 04/27/23 0545 04/26/23 1735 SODIUM mmol/L 140 -- 141 POTASSIUM mmol/L 3.4* -- 3.5 CHLORIDE mmol/L 111* -- 110* CO2 mmol/L 25 -- 25 BUN mg/dL 9 -- 12 CREATININE mg/dL 0.63 -- 0.70 GLUCOSE mg/dL 134* -- 75 MAGNESIUM mg/dL -- 1.3* 0.6* CALCIUM mg/dL 7.9* -- 8.4* Results from last 7 days Lab Units 04/26/23 1735 AST U/L 41* ALT U/L 17 ALK PHOS U/L 63 BILIRUBIN TOTAL mg/dL 0.3 BILIRUBIN DIRECT mg/dL 0.1 Results from last 7 days Lab Units 04/27/23 1121 04/27/23 0542 04/27/23 0017 04/26/23 1729 04/26/23 1539 04/26/23 1422 POCT GLUCOSE mg/dL 134* 129* 175* 78 70 62* Historical Values: (Includes values prior to this admission) Lab Results Component Value Date TSH 1.82 04/26/2023 HDL 34 04/26/2023 LDL 51 04/26/2023 Lab Results Component Value Date [id number] 436 2022 Imaging Complete Echo (TTE) w/wo Imaging Agent, Strain, 3D, Bubble Study 1 1 [facility] Heart Station [address] [place] [address] [phone] (fax) Echocardiogram-[facility] Name: KIARA BLANC Study Date: 04/26/2023 03:54 PM B/P: 129 mmHg/77 mmHg HR: Date of : 1955 Location: [facility] Height: 66 in. Age: 68 year(s) Patient Room: [facility] Weight: 203 lb. Gender: Female Patient Status: InPt BSA: 2.01 m2 Indication: Chest Pain Examination: Echocardiogram (Complete), Lumason Contrast Image Quality: Technically difficult study the patient was uncooperative Patient Consent: Procedure explained to patient Conclusions Left Ventricle: The left ventricle appears normal in size. Global left ventricular systolic function is severely reduced. The EF is 30 % visually. Left ventricular wall thickness is normal. Right Ventricle: The right ventricle appears normal in size. Right ventricular systolic function appears re (more content not included)...[facility] 04-27-2023 NoteEMS had called APS regarding the patient. Attempted to call [facility]PS to follow up but they are only open Mon-Fri 8am-4:30pm.[facility]08-05-2023 NoteOutput from [facility]08-04-2023 NoteHospital Medicine History and Physical 04/26/2023 2:36 PM THE HOSPITALIST TEAM PREFERS TO USE [employer] CHAT FOR COMMUNICATION 7AM-7PM. IF I DO NOT RESPOND WITHIN 15 MINUTES, PLEASE PAGE ME/CALL THROUGH THE CABLE SPLICER APPRENTICE. FROM 7PM-7AM, PLEASE PAGE [phone](COVR) Chief Complaint NSTEMI History of Present Illness Kiara Blanc is an 68 y.o. female who came from [facility] for [facility]STEMI. [facility] with known history of CAD, HLD, CAD, smoker, chronic diastolic HF w NYHA Class II, diabetes mellitus presents to hospital today as a direct transfer for cardiology service evaluation. Patient had initially presented at outside facility by ambulance after he was found on floor lying between while in couch yesterday on 04/25where he has she has been lying for a few days in her stool per report. On arrival, patient was altered, underwent trauma work-up which was within normal limits. Patient is nonparticipatory in history and does not offer any meaningful information, she does not remember events. Over at at the facility on arrival, she was noted to have rhabdomyolysis, suspected UTI and hypoglycemia and initial troponin was slightly elevated. Patient was admitted at their facility for IV resuscitation, started on empiric Rocephin and troponin curve was trended. Patient denies any chest pain or any symptoms associated with her symptoms. During the hospitalization up until 04 26 today, her high sensitive troponin increased from 100 to over 1000. Case was discussed with our cardiology service here and she was subsequently transferred here for cardiac evaluation. She was started on aspirin and heparin drip was commenced. Additionally, patient had episode of hypoglycemia in the hospital over there with dropping as low as 30s and subsequently started on a dextrose drip. is also reported, patient has history of noncompliance to her medications, on last cardiology notes review she was supposed to be on aspirin and Plavix, she has a very difficult poor living situation and EMS has called Adult Protective Services multiple times for this patient in the past. Review of System and Physical Exam Temp: [36.2 ???C (97.1 ???F)] 36.2 ???C (97.1 ???F) Heart Rate: [83] 83 Resp: [13] 13 BP: (129)/(77) 129/77 Physical Exam Constitutional: Appearance: Normal appearance. HENT: Head: Atraumatic. Mouth/Throat: Pharynx: Oropharynx is clear. Eyes: Extraocular Movements: Extraocular movements intact. Cardiovascular: Rate and Rhythm: Normal rate and regular rhythm. Heart sounds: Normal heart sounds. Abdominal: General: Bowel sounds are normal. Musculoskeletal: General: Normal range of motion. Cervical back: Neck supple. Skin: General: Skin is warm. Neurological: General: No focal deficit present. Mental Status: She is alert. Mental status is at baseline. Psychiatric: Mood and Affect: Mood normal. Review of Systems Constitutional: Positive for activity change and fatigue. Negative for chills and fever. Respiratory: Negative for chest tightness, shortness of breath, wheezing and stridor. Cardiovascular: Negative for chest pain, palpitations and leg swelling. Gastrointestinal: Negative for abdominal distention and abdominal pain. Problem List Patient Active Problem List Diagnosis Date Noted NSTEMI (non-ST elevated myocardial infarction) ([facility]) 04/26/2023 Acute cystitis without hematuria 04/26/2023 Hypoglycemia 04/26/2023 Traumatic rhabdomyolysis ([facility]) 04/26/2023 Coronary artery disease involving [place] coronary artery of [place] heart without angina pectoris 07/18/2022 Hyperlipidemia, mixed 07/18/2022 Edema of lower extremity 07/18/2022 Chronic diastolic heart failure ([facility]) 07/18/2022 Tobacco dependence 07/18/2022 Assessment and Plan NSTEMI-Type I versus some contribution by type II secondary to rhabdo. Continue to trend troponin curve, continue aspirin, Plavix, heparin drip. Add PPI for prophylaxis. Obtain surface echo. Discussed with edi coordinator. No plans for cath today and will decide on saturday Rhabdomyolysis- Recheck, continue IV hydration, monitor BMP serially, monitor I/O's, careful hydration secondary to CHF. Hypoglycemia- Again slightly hypoglycemic today at 60s, will start on D5 NS considering patient is currently n.p.o. until cardiology sees her. Acute cystitis w.o hematuria- Continue Rocephin empirically for now. HLD-Holding today secondary to significant rhabdo, will resume tomorrow once stable, obtain LFTs as well. COPD Anxiety VTE Prophylaxis: SCDs/Heparin gtt ----- Focus of this inpatient stay will remain on problems that need acute care setting for care. We will review available studies and will order additional labs, imaging and other studies as appropriate. As needed medicines are ordered as appropriate. VTE Prophylaxis will be ordered as appropriate. Please see abov (more content not included)...[facility]06-19-2023 Hospital Discharge instructions* Discharge Instructions* Codi Chase PA-C - 03/11/2023 2:26 PM EDT Your urinalysis looks as though you may have a urinary tract infection. However, your most recent urine culture was negative. I will begin you on a short course of antibiotics and have you follow-up in Sonya Posada's office. * Attachments The following attachments cannot be sent through Care Everywhere. * UTI (Urinary Tract Infection): [facility] ([place]) [facility] Includes: Assessments for all patient encounters Findings Encounter Date Anxiety disorder NOS Established Patient with Sobia Short LISWS 03/07/2023 Last Documented On 3 9:52PM ; [facility] Dependence on nicotine in ci garettes - uncomplicated Established Patient with Sobia Short LISWS 03/07/2023 Last Documented On 3 9:52PM ; [facility] Mild recurrent major depression Estab lished Patient with Sobia Short LISWS 03/07/2023 Last Documented On 3 9:52PM ; [facility] [Body mass index [BMI] 33.0- 33.9, adult] assessment of body mass index Medical New Patient with Sonya Carlo PERSONAL DEVELOPMENT EDUCATOR 03/07/2023 Last Documented On 3 5:01PM ; [facility] Diabetes Risk Test Score was 7.0 score 03/07/2023 Medical New Patient with Sonya Carlo PERSONAL DEVELOPMENT EDUCATOR 03/07/2023 Last Documented On 3 5:01PM ; [facility] Work Phone: [phone]) 602-130906-15-2023 Evaluation note Includes: Assessments for all patient encounters Findings Encounter Date Anxiety disorder NOS Established Patient with Sobia Short LISWS 03/07/2023 Last Documented On 3 9:52PM ; [facility] Dependence on nicotine in ci garettes - uncomplicated Established Patient with Sobia Short LISWS 03/07/2023 Last Documented On 3 9:52PM ; [facility] Mild recurrent major depression Estab lished Patient with Sobia Short LISWS 03/07/2023 Last Documented On 3 9:52PM ; [facility] [Body mass index [BMI] 33.0- 33.9, adult] assessment of body mass index Medical New Patient with Sonya Carlo PERSONAL DEVELOPMENT EDUCATOR 03/07/2023 Last Documented On 3 5:15AM ; [facility] Colon screening Medical New Patient with Sonya Carlo PERSONAL DEVELOPMENT EDUCATOR 03/07/2023 Last Documented On 3 5:15AM ; [facility] Diabetes Risk Test Score was 7.0 score 03/07/2023 Medical New Patient with Sonya Carlo PERSONAL DEVELOPMENT EDUCATOR 03/07/2023 Last Documented On 3 5:15AM ; [facility] Screening for Hep C Medical New Patient with Ronnie sie Carlo PERSONAL DEVELOPMENT EDUCATOR 03/07/2023 Last Documented On 3 5:15AM ; [facility] Screening for HIV Medical New Patient with Joselyn e Carlo PERSONAL DEVELOPMENT EDUCATOR 03/07/2023 Last Documented On 3 5:15AM ; [facility] Work Phone: [phone]) 117-274306-15-2023 Evaluation note Includes: Assessments for all patient encounters Findings Encounter Date Anxiety disorder NOS Established Patient with Sobia Short LISWS 03/07/2023 Last Documented On 3 9:52PM ; [facility] Dependence on nicotine in ci garettes - uncomplicated Established Patient with Sobia Short LISWS 03/07/2023 Last Documented On 3 9:52PM ; [facility] Mild recurrent major depression Estab lished Patient with Sobia Short LISWS 03/07/2023 Last Documented On 3 9:52PM ; [facility] [Body mass index [BMI] 33.0- 33.9, adult] assessment of body mass index Medical New Patient with Sonya Posada PERSONAL DEVELOPMENT EDUCATOR 03/07/2023 Last Documented On 3 7:51PM ; [facility] Colon screening Medical New Patient with Sonya Srer PERSONAL DEVELOPMENT EDUCATOR 03/07/2023 Last Documented On 3 7:51PM ; [facility] Diabetes Risk Test Score was 7.0 score 03/07/2023 Medical New Patient with Sonya Srer PERSONAL DEVELOPMENT EDUCATOR 03/07/2023 Last Documented On 3 7:51PM ; [facility] Screening for Hep C Medical New Patient with Ronnie sie Carlo PERSONAL DEVELOPMENT EDUCATOR 03/07/2023 Last Documented On 3 7:51PM ; [facility] Screening for HIV Medical New Patient with Joselyn e Carlo PERSONAL DEVELOPMENT EDUCATOR 03/07/2023 Last Documented On 3 7:51PM ; [facility] Work Phone: [phone]) 597-807306-15-2023 History general Narrative - Reported Includes: Medical History in patient's chart Description Last Updated History of tooth extraction 03/07/2023 Last Documented On 3 5:15AM ; [facility] No medical history or no significant his tory 03/07/2023 Last Documented On 3 5:15AM ; [facility] No previous hospitalizations 03/07/2023 Last Documented On 3 5:15AM ; [facility] Recent immunization for flu 03/07/2023 Last Documented On 3 5:15AM ; [facility] Work Phone: [phone]) 931-271406-15-2023 History general Narrative - Reported Includes: Medical History in patient's chart Description Last Updated History of tooth extraction 03/07/2023 Last Documented On 3 7:51PM ; [facility] No medical history or no significant his tory 03/07/2023 Last Documented On 3 7:51PM ; [facility] No previous hospitalizations 03/07/2023 Last Documented On 3 7:51PM ; [facility] Recent immunization for flu 03/07/2023 Last Documented On 3 7:51PM ; [facility] Work Phone: [phone]) 623-993106-15-2023 Progress note* Progress note Date Encounter Last Documented by 03/07/2023 Established Patient Last docu mented on 03/10/2023; 9:52 PM, Sobia MALDONADO; [facility] Active Problems & Conditions - F41.9 - Anxiety Disorder Nos - E13.40 - Diabetes Mellitus Diabetic Peripheral Neuropathy - E11.9 - Diabetes Mellitus Type 2 Without Complication - I10 - Essential Hypertension - F33.0 - Major Depression Recurrent Mild - F17.210 - Nicotine Dependence Cigarettes Uncomplicated Chief Complaint The Chief Complaint is: Patient is in to establish care and [facility] met with patient to follow-up regarding PHQ score of 3. Patient reports that she has a history of depression and anxiety. Patient reports that medications have been helpful overall in managing symptoms. Patient reports that at times she has decreased interest in things and poor sleep. Patient reports that she manages a lot of health issues and this causes increased anxiety at times. Patient reports no thoughts of harm towards self or others. History of Present Illness Kiara Blanc is a 67 year old female. - Normal appetite. - Anxiety - Difficulty falling asleep - Hard to stay asleep due to pain - Loss of interest in activities - Energy level is fair - No depression - Not easily distracted - No social isolation - No impulsive behavior - No Irritability Current Medication - Atorvastatin Calcium 80 MG Oral Tablet 90 days, 0 refills - Citalopram Hydrobromide 40 MG Oral Tablet 14 days, 0 refills - Clopidogrel Bisulfate 75 MG Oral Tablet 90 days, 0 refills - Gabapentin 300 MG Oral Capsule 90 days, 0 refills - Januvia 100 MG Oral Tablet 90 days, 0 refills - Lantus SoloStar 100 UNIT/ML Subcutaneous Solution Pen-injector 62 days, 0 refills - Lisinopril 2.5 MG Oral Tablet 90 days, 0 refills - metFORMIN HCl 1000 MG Oral Tablet 90 days, 0 refills - Metoprolol Tartrate 25 MG Oral Tablet 90 days, 0 refills - Omeprazole 40 MG Oral Capsule Delayed Release 90 days, 0 refills Social History Environmental Exposure: Secondhand cigarette smoke exposure. Personal: Recent emotional stress due to managing chronic health issues. Tobacco use: Cigarette smoking. Alcohol: Not using alcohol. Drug Use: Not using drugs. Housing And Economic Circumstances: Lives with spouse. Physical Findings General Appearance: - Normal Appearance. Neurological: - Estimated intelligence was normal. - Oriented to time, place, and person. - No hallucinations. - Judgement was not impaired. Speech: - Is Normal. Psychiatric: - Mood is Euthymic. - Attitude Open. Demonstrated Behavior: - Motor Activity Normal Activity. - Eye Contact Appropriate. Affect: - Congruent with the mood. Thought Content: - Insight was intact. - No delusions. - No suicidal ideation. - No Passive thoughts of . - No suicidal plans. - No suicidal intent. - No homicidal ideations. - No homicidal plans. - No homicidal intent. Past Medical: - No repetitive self injurious behavior. - No access to weapons / guns in home. Assessment - F17.210 - Nicotine dependence, cigarettes, uncomplicated - F33.0 - Major depressive disorder, recurrent, mild - F41.9 - Anxiety disorder, unspecified Therapy - SBIRT Screen Neg. - SBIRT Full Screen Neg. - Brief solution-focused therapy. - Plan - do not modify medication as patient feels medications work well. Collaborated with patient and provider: Counseling/Education P [facility]. BHP provided supportive and active listening, allowing patient the space to discuss concerns and explored with patient coping strategies and resources for support. Patient declines additional resources at this time but is aware to reach out to the office should she have questions or concerns. BHP encouraged patient to continue addressing physical health needs and attend appointments as scheduled. Plan Patient to take medications as prescribed and contact the office with any questions or concerns. Patient to implement coping skills and positive supports as discussed. BHP to follow-up with patient at next visit as scheduled. Health Reminders - Assess Tobacco Use satisfied 03/07/2023. - PHQ9 / PHQA satisfied 03/07/2023. - SBIRT satisfied 03/07/2023. User Defined 1 She has not had 4 or more drinks in a day within the past year., no misuse of prescription only drugs, and not illicit. Little interest or pleasure in doing things in the last 2 weeks? 1 pt Several days, Feeling down, depressed, or hopeless in the last 2 weeks? 0 pt Not at all, and [PHQ-2] Patient Health Questionnaire 2 item total score: 1 pts (Scale: 0-6) PHQ2. PHQ-9: total score was three 03/07/2023 If you checked off problems, how difficult is it for you to do your work? + : Somewhat difficult, [PHQ-9-1] Little interest or pleasure in doing things? + 1 pt : Several days, [PHQ-9-2] Feeling down, depressed, or hopeless? + 0 pt : Not at all, [PHQ-9-3] Trouble falling or staying asleep or sleeping too much? + 2 pt : More than half the days, [PHQ-9-4] Feeling tired or having little energy? + 0 pt : Not at all, [PHQ-9-5] Poor appetite or overeating? + 0 pt : Not at all, [PHQ-9-6] Feeling bad about yourself-or that you are a failure + 0 pt : Not at all, [PHQ-9-7] Trouble concentrating on things such as reading the newspaper + 0 pt : Not at all, [PHQ-9-8] Moving or speaking so slowly that other people have noticed. + 0 pt : Not at all, and [PHQ-9-9] Thoughts that you would be better off or hurting yourself? + 0 pt : Not at all. [facility]06-15-2023 Progress note* Progress note Date Encounter Last Documented by 03/07/2023 Medical New Patient Last jose cruz burt on 03/12/2023; 5:15 AM, Sonya Posada CNP; [facility] Active Problems & Conditions - F41.9 - Anxiety Disorder Nos - E13.40 - Diabetes Mellitus Diabetic Peripheral Neuropathy - E11.9 - Diabetes Mellitus Type 2 Without Complication - I10 - Essential Hypertension - F33.0 - Major Depression Recurrent Mild - F17.210 - Nicotine Dependence Cigarettes Uncomplicated Chief Complaint The Chief Complaint is: [facility] was seeing at [facility] diabetic. Referred Here Not referred by urgent care clinic and not the emergency room. No prior encounters. - Data to be reviewed: no clinical lab tests History of Present Illness Kiara Blanc is a 67 year old female. 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 Current Medication - Atorvastatin Calcium 80 MG Oral Tablet 90 days, 0 refills - Citalopram Hydrobromide 40 MG Oral Tablet 14 days, 0 refills - Clopidogrel Bisulfate 75 MG Oral Tablet 90 days, 0 refills - Gabapentin 300 MG Oral Capsule 90 days, 0 refills - Januvia 100 MG Oral Tablet 90 days, 0 refills - Lantus SoloStar 100 UNIT/ML Subcutaneous Solution Pen-injector 62 days, 0 refills - Lisinopril 2.5 MG Oral Tablet 90 days, 0 refills - metFORMIN HCl 1000 MG Oral Tablet 90 days, 0 refills - Metoprolol Tartrate 25 MG Oral Tablet 90 days, 0 refills - Omeprazole 40 MG Oral Capsule Delayed Release 90 days, 0 refills Past Medical/Surgical History Reported: Medical: No medical history or no significant history and no previous hospitalizations. Immunization History: Recent immunization for flu. Procedural: - Tooth extraction Surgical: - General surgery open heart surgery 2002 rotater cuff right gallbladder - Hysterectomy - Knee replacement right half - Knee replacement left whole Social History Environmental Exposure: Secondhand cigarette smoke exposure. Tobacco use: Cigarette smoking Light (1-10/day). Not using electronic cigarettes/vaping. Alcohol: Not using alcohol. Drug Use: Not using drugs denied by patient. Sexual: Sexual orientation Straight (not lesbian or lynn) and gender identity Female. Allergies - adhesive tape - Bandaids - Vicodin Reaction: Nausea Family History Paternal: Type 2 diabetes mellitus Maternal: Type 2 diabetes mellitus Oncologic disorder Physical Findings - Vitals taken 03/07/2023 03:37 pm BP-Sitting L115/55 mmHg BP Cuff SizeRegular Pulse Rate-Fwlzhlj26 bpm Temp-Bpmqcsmy69.5 F Pkmdtj61 in Imqbvl630 lbs Body Mass Index33.4 kg/m2 Body Surface Area2 m2 Oxygen Ycocyhbdsg43 % Tests Urinalysis Was Performed: Routine urinalysis without microscopic examination abnormal Protein ++100. Glucose Negative, Bilirubin Negative, Urobilinogen 0.2, Nitrite Negative, and Ketones 0 Negative. Abnormal Leukocyte Estrase +++Large, Blood Trace Hemolyzed, Specific [place] 1.025, and pH 7.0. Urine clarity Turbid and color Green. Blood Analysis: Blood Endocrine Laboratory Tests: ValueDate Blood glucose level by fingerstick Non-fasting 142 mg/dl03/07/2023 Blood hemoglobin A1c 7.3%03/07/2023 Laboratory-based Chemistry: Immunology Studies: HIV test was negative. Urine Tests: Value Urine microalbumin dipstick test was 150 + Urine albumin/creatinine by test strip 30-300. Fecal Analysis: Cologuard Requested. Drug Screen: Value Urine Temperature 96.0 Urine drug screen by multiple class procedure. THC Not Present, PCP Not Present, OXY Not Present, [id number] Not Present, MTD Not Present, MET Not Present, MDMA Not Present, RUDDY Not Present, BZO Not Present, BUP Not Present, BAR Not Present, and AMP Not Present. Microbiology: Microbiology - Antibody Identification: In House Screen Hep C was negative 03/07/2023. Assessment - Screening for HIV [Encounter for screening for human immunodeficiency virus [HIV]] - Screening for Hep C [Encounter for screening for other viral diseases] - Body mass index [Body mass index [BMI] 33.0-33.9, adult] - Diabetes Risk Test Score was 7.0 score 03/07/2023 [Encounter for screening for diabetes mellitus] - Colon screening [Encounter for screening for malignant neoplasm of colon] Vaccinations - Received dose of Reported: Patient has received the COVID Vaccine Counseling/Education - Wishing to stop smoking Discussed Quit Line resources - Discussed nutritional needs teach healthy choices including fruits and vegetables - Patient education about a proper diet - Referred Patient to a Diabetes Self-Management Program - Discussed concerns about exercise: promote physical activity Get labs done and follow up in two weeks Plan StartCited- Dysuria Outside Labs/Microbiology: Urine Culture & Sensitivity (16578) EndCited StartCited- Type 2 diabetes mellitus without complications Lab: CBC WITH DIFF Lab: COMP METABOLIC PROF Lab: LIPID PROFILE Lab: TSH W/REFLEX TO FT4 Lab: VITAMIN D 25 OH EndCited Practice Management Hemoglobin A1c level >=7.0 and < 8.0%, for blood pressure systolic < 140 mmHg systolic < 130 mmHg systolic < 130 mmHg, and diastolic < 80 mmHg diastolic < 80 mmHg. User Defined 1 Yes (1 point) [Pre-DM]: Yes, patient has been diagnosed with high blood pressure, Yes (1 point) [Pre-DM]: Yes, mother, father, sister or brother has DM, No (0 points) [Pre-DM]: Patient has not been diagnosed with gestational diabetes or given to a baby weighing 9 pounds or more, Yes (0 point) [Pre-DM]: Yes, physically active, and Woman (0 Points) [Pre-DM]. 60 years or older (3 points) [Pre-DM]. [facility]06-15-2023 Progress note* Progress note Date Encounter Last Documented by 03/07/2023 Medical New Patient Last docdavyn javed on 03/14/2023; 7:51 PM, Sonya Posada CNP; [facility] Active Problems & Conditions - F41.9 - Anxiety Disorder Nos - E13.40 - Diabetes Mellitus Diabetic Peripheral Neuropathy - E11.9 - Diabetes Mellitus Type 2 Without Complication - I10 - Essential Hypertension - F33.0 - Major Depression Recurrent Mild - F17.210 - Nicotine Dependence Cigarettes Uncomplicated Chief Complaint The Chief Complaint is: [facility] was seeing at [facility] diabetic. Referred Here Not referred by urgent care clinic and not the emergency room. No prior encounters. - Data to be reviewed: no clinical lab tests History of Present Illness Kiara Blanc is a 67 year old female. 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 Current Medication - Atorvastatin Calcium 80 MG Oral Tablet 90 days, 0 refills - Citalopram Hydrobromide 40 MG Oral Tablet 14 days, 0 refills - Clopidogrel Bisulfate 75 MG Oral Tablet 90 days, 0 refills - Gabapentin 300 MG Oral Capsule 90 days, 0 refills - Januvia 100 MG Oral Tablet 90 days, 0 refills - Lantus SoloStar 100 UNIT/ML Subcutaneous Solution Pen-injector 62 days, 0 refills - Lisinopril 2.5 MG Oral Tablet 90 days, 0 refills - metFORMIN HCl 1000 MG Oral Tablet 90 days, 0 refills - Metoprolol Tartrate 25 MG Oral Tablet 90 days, 0 refills - Omeprazole 40 MG Oral Capsule Delayed Release 90 days, 0 refills Past Medical/Surgical History Reported: Medical: No medical history or no significant history and no previous hospitalizations. Immunization History: Recent immunization for flu. Procedural: - Tooth extraction Surgical: - General surgery open heart surgery 2002 rotater cuff right gallbladder - Hysterectomy - Knee replacement right half - Knee replacement left whole Social History Environmental Exposure: Secondhand cigarette smoke exposure. Tobacco use: Cigarette smoking Light (1-10/day). Not using electronic cigarettes/vaping. Alcohol: Not using alcohol. Drug Use: Not using drugs denied by patient. Sexual: Sexual orientation Straight (not lesbian or lynn) and gender identity Female. Allergies - adhesive tape - Bandaids - Vicodin Reaction: Nausea Family History Paternal: Type 2 diabetes mellitus Maternal: Type 2 diabetes mellitus Oncologic disorder Physical Findings - Vitals taken 03/07/2023 03:37 pm BP-Sitting L115/55 mmHg BP Cuff SizeRegular Pulse Rate-Sakpujo11 bpm Temp-Chcbsgzp76.5 F Hcrjkh79 in Ioecmr655 lbs Body Mass Index33.4 kg/m2 Body Surface Area2 m2 Oxygen Envryiwqan36 % Tests Urinalysis Was Performed: Routine urinalysis without microscopic examination abnormal Protein ++100. Glucose Negative, Bilirubin Negative, Urobilinogen 0.2, Nitrite Negative, and Ketones 0 Negative. Abnormal Leukocyte Estrase +++Large, Blood Trace Hemolyzed, Specific [place] 1.025, and pH 7.0. Urine clarity Turbid and color Green. Blood Analysis: Blood Endocrine Laboratory Tests: ValueDate Blood glucose level by fingerstick Non-fasting 142 mg/dl03/07/2023 Blood hemoglobin A1c 7.3%03/07/2023 Laboratory-based Chemistry: Immunology Studies: HIV test was negative. Urine Tests: Value Urine microalbumin dipstick test was 150 + Urine albumin/creatinine by test strip 30-300. Fecal Analysis: Cologuard Requested. Drug Screen: Value Urine Temperature 96.0 Urine drug screen by multiple class procedure. THC Not Present, PCP Not Present, OXY Not Present, [id number] Not Present, MTD Not Present, MET Not Present, MDMA Not Present, RUDDY Not Present, BZO Not Present, BUP Not Present, BAR Not Present, and AMP Not Present. Microbiology: Microbiology - Antibody Identification: In House Screen Hep C was negative 03/07/2023. Assessment - Screening for HIV [Encounter for screening for human immunodeficiency virus [HIV]] - Screening for Hep C [Encounter for screening for other viral diseases] - Body mass index [Body mass index [BMI] 33.0-33.9, adult] - Diabetes Risk Test Score was 7.0 score 03/07/2023 [Encounter for screening for diabetes mellitus] - Colon screening [Encounter for screening for malignant neoplasm of colon] Vaccinations - Received dose of Reported: Patient has received the COVID Vaccine Counseling/Education - Wishing to stop smoking Discussed Quit Line resources - Discussed nutritional needs teach healthy choices including fruits and vegetables - Patient education about a proper diet - Referred Patient to a Diabetes Self-Management Program - Discussed concerns about exercise: promote physical activity Get labs done and follow up in two weeks Plan StartCited- Dysuria Outside Labs/Microbiology: Urine Culture & Sensitivity (80903) EndCited StartCited- Type 2 diabetes mellitus without complications Lab: CBC WITH DIFF Lab: COMP METABOLIC PROF Lab: LIPID PROFILE Lab: TSH W/REFLEX TO FT4 Lab: VITAMIN D 25 OH EndCited Practice Management Hemoglobin A1c level >=7.0 and < 8.0%, for blood pressure systolic < 140 mmHg systolic < 130 mmHg systolic < 130 mmHg, and diastolic < 80 mmHg diastolic < 80 mmHg. User Defined 1 Yes (1 point) [Pre-DM]: Yes, patient has been diagnosed with high blood pressure, Yes (1 point) [Pre-DM]: Yes, mother, father, sister or brother has DM, No (0 points) [Pre-DM]: Patient has not been diagnosed with gestational diabetes or given to a baby weighing 9 pounds or more, Yes (0 point) [Pre-DM]: Yes, physically active, and Woman (0 Points) [Pre-DM]. 60 years or older (3 points) [Pre-DM]. [id number] discussion with patient regarding smoking cessation, she denies need for prescription for Wellbutrin, she refuses Chantix related to she already has nightmares, and she does not want nicotine gum because of dentures. States she is going to get nicotine patches that she is can order from the TV for free. [facility]10-26-2022 NoteContinued goal-directed medical therapy, aspirin, statin, Plavix, metoprolol and lisinopril No concerning symptoms currently Continue risk factor modifications including heart healthy diet, regular exercise as tolerated and she is trying to quit smoking.[facility]10-26-2022 NoteContinue statinUnProtestant [facility] 07-18-2022 NoteContinues to take lasix daily with prn lasix bid for increased fluid volume as needed. States she watches her weight daily and if she gains 2 to 3 pounds she takes Lasix twice a day, states she does not need this but intermittently not daily not very often since her last visit. States leg swelling has been well controlled, no increased dyspnea on exertion or at rest or orthopnea. [facility] II-without exacerbation currently patient is euvolemic Return to clinic in 6 months or earlier if neededUnProtestant [facility]10-26-2022 NotePatient here for follow up LE edema per Mariam Sahu CNP. She had BMP drawn today. Review of Systems Cardiovascular: Positive for leg swelling. All other systems reviewed and are negative.[facility] 07-18-2022 NoteSays her LE edema is much better now. Denies chest pain and SOB. Review of Systems Cardiovascular: Positive for leg swelling.[facility] 07-18-2022 NoteHPI: Kiara Blanc is a 67 y.o. female here for Edema and Coronary Artery Disease HPI Patient here for follow up LE edema per Mariam Sahu CNP. She had BMP drawn today. Reports typical shortness of breath, denies orthopnea, chest pain, palpitations. States leg swelling is much better, states she takes Lasix twice a day as needed intermittently states she does not need this very often at all since our last visit. She does watch her weight daily, low-sodium diet and fluid restriction. Her and her are both trying to quit smoking since his hospitalization recently, she has tried Wellbutrin in the past without success and she is going to get nicotine patches-states she can get them for free from the TV. Review of Systems Cardiovascular: Positive for leg swelling. All other systems reviewed and are negative. Visit Vitals BP (P) 135/79 (BP Location: Left arm, Patient Position: Sitting) Pulse 94 Ht 1.676 m (5' 6 ) Wt 89.4 kg (197 lb) SpO2 97% BMI 31.80 kg/m??? BSA 2.04 m??? Medications: Current Outpatient Medications on File Prior to Visit Medication Sig Dispense Refill aspirin 325 mg tablet in the morning. atorvastatin (Lipitor) 80 mg tablet atorvastatin 80 mg tablet 1 tablet QD citalopram (CeleXA) 20 mg tablet citalopram 20 mg tablet clopidogrel (Plavix) 75 mg tablet in the morning. furosemide (Lasix) 20 mg tablet Take 20 mg by mouth if needed. gabapentin (Neurontin) 300 mg capsule gabapentin 300 mg capsule insulin NPH, Isophane, (NovoLIN N NPH U-100 Insulin) 100 unit/mL injection every 12 (twelve) hours. lisinopril 2.5 mg tablet in the morning. metoprolol tartrate (Lopressor) 25 mg tablet Take 12.5 mg by mouth in the morning and at bedtime. potassium chloride CR (K-Tab) 20 mEq ER tablet Take 20 mEq by mouth if needed. tiZANidine (Zanaflex) 4 mg tablet tizanidine 4 mg tablet No current facility-administered medications on file prior to visit. Physical Exam: Constitutional: Appearance: Normal appearance. Chronically ill, obese, without apparent distress HENT: Head: Normocephalic and atraumatic. Nose: Nose normal. Mouth/Throat: Mouth: Mucous membranes are moist. Eyes: Extraocular Movements: Extraocular movements intact. Conjunctiva/sclera: Conjunctivae normal. Neck: Vascular: No JVD. Cardiovascular: Rate and Rhythm: Normal rate and regular rhythm. Pulses: Dorsalis pedis pulses are 3 on the right side and 3on the left side. Posterior tibial pulses are 3 on the right side and 3 on the left side. Heart sounds: Normal heart sounds, S1 normal and S2 normal. Pulmonary: Effort: Pulmonary effort is normal. Breath sounds: Normal breath sounds. Abdominal: General: Bowel sounds are normal. Palpations: Abdomen is soft. Musculoskeletal: General: Normal range of motion. Cervical back: Normal range of motion. Right lower leg: No edema. Left lower leg: No edema. Skin: General: Skin is warm and dry. Bilateral lower extremity xerosis Capillary Refill: Capillary refill takes less than 2 seconds. Neurological: General: No focal deficit present. Mental Status: She is alert and oriented to person, place, and time. Psychiatric: Mood and Affect: Mood normal. Behavior: Behavior normal. Thought Content: Thought content normal. Judgment: Judgment normal. Labs: Last lab values have been reviewed [facility]03/16/22 Echo 05/31/21 Echo Assessment/Plan: Chronic diastolic heart failure (CMS/HCC) Continues to take lasix daily with prn lasix bid for increased fluid volume as needed. States she watches her weight daily and if she gains 2 to 3 pounds she takes Lasix twice a day, states she does not need this but intermittently not daily not very often since her last visit. States leg swelling has been well controlled, no increased dyspnea on exertion or at rest or orthopnea. [facility] II-without exacerbation currently patient is euvolemic Return to clinic in 6 months or earlier if needed Hyperlipidemia, mixed Continue statin Coronary artery disease involving [place] coronary artery of [place] heart without angina pectoris Continued goal-directed medical therapy, aspirin, statin, Plavix, metoprolol and lisinopril No concerning symptoms currently Continue risk factor modifications including heart healthy diet, regular exercise as tolerated and she is trying to quit smoking. Tobacco dependence 10-minute discussion with patient regarding smoking cessation, she denies need for prescription for Wellbutrin, she refuses Chantix related to she already has nightmares, and she does not want nicotine gum because of dentures. States she is going to get nicotine patches that she is can order from the TV for free. [facility]07-03-2022 NoteMR#: [id number] I [facility] Pt. Name: Kiara Blanc Admitted: 03/16/2022 Discharged: 03/25/2022 Date of : 1955 Physician: Yris Quan MD DISCHARGE SUMMARY PRIMARY DIAGNOSES: Status post fall and weakness, chronic right hip fracture, vitamin D deficiency. SECONDARY DIAGNOSIS: Coronary artery disease, diabetes, and chronic obstructive pulmonary disease. HISTORY OF PRESENT ILLNESS: This patient is a 67-year-old female with past history of diabetes, coronary artery disease, and COPD, who presented to the emergency after falling at home and she could not get up. The patient stated that she fell forward, but denies any pain after the fall. Troponin was mildly elevated, but the patient denied chest pain. HOSPITAL COURSE: 1. The patient had mechanical fall. CT brain and neck showed no fracture. Urine culture showed no bacteria. TSH and B12 were within normal limits. 2. Right hip fracture, chronic. Orthopedics recommended no intervention. 3. Vitamin D deficiency. The patient was discharged on oral replacement. 4. Elevated troponin, likely type 2. No chest pain. Cardiology recommended no intervention. 5. Coronary artery disease, status post coronary artery bypass graft, on aspirin, Lipitor, and metoprolol. 6. Hypertension. Lisinopril and metoprolol. 7. Diabetes, on NPH. PHYSICAL EXAMINATION: GENERAL: Alert and oriented, not in acute distress. NECK: Supple. CARDIOVASCULAR: Normal rate and regular rhythm. RESPIRATORY: Lungs are clear to auscultation bilaterally. GI: Soft, nontender. EXTREMITIES: No pitting edema. DISCHARGE MEDICATIONS: Xanax as needed, aspirin daily, Lipitor 10 mg bedtime, gabapentin t.i.d., vitamin D 3000 units daily, NPH 60 units twice a day, Aricept 2 mg daily, Lopressor 12.5 mg twice a day, omeprazole 40 mg daily. DISPOSITION: Discharged home in stable condition. INSTRUCTIONS: The patient to take vitamin D replacement as prescribed. The patient is to follow up with Orthopedics. Electronically Signed by: Yris Quan MD 04/03/2022 02:45 P Yris Quan MD Date Dict: 03/25/2022/02:41 P/Yris Quan MD Date Trans: 03/25/2022 05:24 P/mmo [id number] cc: Peter Santos M.D. [address] [facility] [id number] Reinaldo Marlow M.D. [address] [place], [place] [address]Evaluation note* Diagnosis Acute cystitis without hematuria- Primary Acute cystitis documented in this encounter [facility] noteNo assessment information available [facility] Work Phone: [facility] general Narrative - Reported Includes: Medical History in patient's chart No Medical History [facility] Work Phone: History of Present illness Narrative History of Present Illness not supported for this document type No History of Present Illness [facility] Work Phone: Instructions Includes: Instructions for all patient encounters Education and Decision Aids were provided during visit for: [facility] introduced patient to [facility] integrated model of care. ~[facility] provided supportive and active listening, allowing patient the space to discuss concerns and explored with patient coping strategies and resources for support. Patient declines additional resources at this time but is aware to reach out to the office should she have questions or concerns. ~[facility] encouraged patient to continue addressing physical health needs and attend appointments as scheduled Last Documented On 3 9:52PM ; [facility] Discussed nutritional needs teach healthy choices including fruits and vegetables Last Documented On 3 3:42PM ; [facility] Patient education about a pr oper diet Last Documented On 3 3:42PM ; [facility] Discussed concerns about exe rcise : promote physical activity Last Documented On 3 3:42PM ; [facility] Referred Patient to a Diabet es Self-Management Program Last Documented On 3 4:08PM ; [facility] Work Phone: Instructions Includes: Instructions for all patient encounters Education and Decision Aids were provided during visit for: [facility] introduced patient to [facility] integrated model of care. ~[facility] provided supportive and active listening, allowing patient the space to discuss concerns and explored with patient coping strategies and resources for support. Patient declines additional resources at this time but is aware to reach out to the office should she have questions or concerns. ~[facility] encouraged patient to continue addressing physical health needs and attend appointments as scheduled Last Documented On 3 9:52PM ; [facility] Discussed nutritional needs teach healthy choices including fruits and vegetables Last Documented On 3 3:42PM ; [facility] Patient education about a pr oper diet Last Documented On 3 3:42PM ; [facility] Discussed concerns about exe rcise : promote physical activity ~ ~Get labs done and follow up in two weeks Last Documented On 3 5:15AM ; [facility] Referred Patient to a Diabet es Self-Management Program Last Documented On 3 4:08PM ; [facility] Work Phone: Instructions Includes: Instructions for all patient encounters Education and Decision Aids were provided during visit for: [facility] introduced patient to [facility] integrated model of care. ~P provided supportive and active listening, allowing patient the space to discuss concerns and explored with patient coping strategies and resources for support. Patient declines additional resources at this time but is aware to reach out to the office should she have questions or concerns. ~[facility] encouraged patient to continue addressing physical health needs and attend appointments as scheduled Last Documented On 3 9:52PM ; [facility] Discussed nutritional needs teach healthy choices including fruits and vegetables Last Documented On 3 3:42PM ; [facility] Patient education about a pr oper diet Last Documented On 3 3:42PM ; [facility] Discussed concerns about exe rcise : promote physical activity ~ ~Get labs done and follow up in two weeks Last Documented On 3 5:15AM ; [facility] Referred Patient to a Diabet es Self-Management Program Last Documented On 3 4:08PM ; [facility] Work Phone: Patient problem outcome Narrative Includes: Evaluations & Outcomes for active Goals No [facility] Work Phone: Reason for referral (narrative)No [facility] Work Phone: Review of systems Narrative - Reported Review of Systems not supported for this document type No [facility] Work Phone: Summary Purpose Family History Description Last Updated Maternal history of oncologic disorder 0 03/07/2023 Last Documented On 3 5:15AM ; [facility] Maternal history of type 2 diabetes luz itus 03/07/2023 Paternal history of type 2 diabetes luz itus 03/07/2023 Description Last Updated Maternal history of oncologic disorder 0 03/07/2023 Last Documented On 3 7:51PM ; [facility] Maternal history of type 2 diabetes luz itus 03/07/2023 Paternal history of type 2 diabetes luz itus 03/07/2023 Description Last Updated Maternal history of oncologic disorder 0 03/07/2023 Last Documented On 3 7:51PM ; [facility] Maternal history of type 2 diabetes luz itus 03/07/2023 Paternal history of type 2 diabetes luz itus 03/07/2023 Advance Directives Advance Directive Response Recorded Date/ Time Advance Directives No May 1:58pm Latest Code Status on File Code Status Date Activated Date Inactivated Comments Full Code 03/25/2017 8:09 PM 03/27/2017 6:06 PM Directive Pat Aware Third Green Party Effective Date Reviewed Sta tus Declined to Provide Advance Directive Yes 07/18/2023 Current and Verified Note: Patient refuse d advanced directives at this time. Chief Complaint and Reason for Visit Chief Complaint r91.8 Assessments No Assessments Information Available Physical Exam Physical Exam not supported for this document type No Physical Exam Recorded Physical Exam not supported for this document type No Physical Exam Recorded Physical Exam not supported for this document type No Physical Exam Recorded Physical Exam not supported for this document type No Physical Exam Recorded Additional Source Comments INFORMATION SOURCE (unrecogn ized section and content) DATE CREATED AUTHOR 03/19/2018 [facility] DATE CREATED AUTHOR AUTHOR'S ORGANIZ ATION 02/17/2022 [facility] dical Specialist DATE CREATED AUTHOR AUTHOR'S ORGANIZ ATION 04/04/2022 [facility] DATE CREATED AUTHOR AUTHOR'S ORGANIZ ATION 01/14/2023 [facility] DATE CREATED AUTHOR AUTHOR'S ORGANIZ ATION 01/23/2023 [facility] DATE CREATED AUTHOR AUTHOR'S ORGANIZ ATION 03/09/2023 [facility] DATE CREATED AUTHOR AUTHOR'S ORGANIZ ATION 05/22/2023 [facility] DATE CREATED AUTHOR AUTHOR'S ORGANIZ ATION 06/14/2023 [facility] Reason for Visit (unrecogniz ed section and content) Reason Comments Urinary Tract Infection Patient states s he had labs and urine specimen collected on at her PCP she received a call to tell her she has a UTI and needs to come to ER for an atb rx Ordered Prescriptions (unrec ognized section and content) Prescription Sig Dispensed Refills Start Date End Da te nitrofurantoin, macrocrystal-monohydrate , (MACROBID) 100 MG capsule Take 1 capsule by mouth 2 times daily for 7 days 14 capsule 0 03/11/2023 03/18/2023 Care Teams (unrecognized sec tion and content) Manager Media Relationship Specialty Start Date End Date Sonya Posada, GENERAL MANAGER IN TRAINING - PIECE PRESSER [address] [place] [address] PCP - General 03/11/23 Team Status: Inactive Member Role Status Dates Angy N Amanda , BRAKE REPAIRER [employer]RO[employer]-BC Attending Provider Active Goals (unrecognized section and content) Goals may be documented in a n alternate section FOR RECORDS PERTAINING TO PATIENTS WHO ARE OR HAVE BEEN ENROLLED IN A CHEMICAL DEPENDENCY/SUBSTANCEABUSE PROGRAM, SOME INFORMATION MAY BE OMITTED. This clinical summary was aggregated from multiple sources. Caution should be exercised in using it in the provision of clinical care. This summary normalizes information from multiple sources, and as a consequence, information in this document may materially change the coding, format and clinical context of patient data. In addition, data may be omitted in some cases. CLINICAL DECISIONS SHOULD BE BASED ON THE PRIMARY CLINICAL RECORDS. [employer] [employer] [facility]. provides no warranty or guarantee of the accuracy or completeness of information in this document.
[2023-11-05 10:34] LABS: Basophils Percent Auto 0.3 % (0.2-2.0); Eosinophils Absolute Auto 0.2 10^3/uL (0.0-0.7); Eosinophils Percent Auto 1.5 % (0.9-7.0); Hematocrit 38.8 % (36.0-48.0); Hemoglobin 11.9 g/dL (12.0-16.0); Immature Granulocytes Abs Auto 0.14 10^3/uL (0.00-0.03); Immature Granulocytes Pct Auto 1.1 % (0.0-0.5); Lymphocytes Absolute Auto 1.5 10^3/uL (1.2-3.8); Mean Corpuscular HGB Conc 30.7 g/dL (29.9-35.2); Mean Corpuscular Hemoglobin 26.2 pg (26.7-34.0); Mean Corpuscular Volume 85.5 fL (81.0-99.0); Mean Platelet Volume 10.7 fL (9.5-13.5); Monocytes Absolute Auto 1.1 10^3/uL (0.3-0.8); Monocytes Percent Auto 8.5 % (1.7-12.0); Neutrophils Absolute Auto 9.7 10^3/uL (1.4-6.5); Neutrophils Percent Auto 76.6 % (43.0-75.0); Platelet Count 346 10^3/uL (150-450); Red Blood Count 4.54 10^6/uL (4.20-5.40); Red Cell Distribution Width 14.6 % (11.0-15.0); White Blood Count 12.7 10^3/uL (4.0-11.0)
--- NOTE | 2023-11-05 10:40 | XR_ITS ---
The [address] [address] Patient Name: EMILY HARO MRN: [id number] date: 1955 Sex: F Assigned Patient Location: ED.MAIN Current Patient Location: ER Accession/Order Number: [id number] Exam Date: 11/05/2023 10:32 Report Date: 11/05/2023 11:02 At the request of: ОЛЕГ MIR Procedure: XR foot LT min 3V PROCEDURE: XR foot LT min 3V COMPARISON: None. HISTORY: Diabetic foot infection FINDINGS: BONES:Lytic destructive change identified centered at the first interphalangeal joint involving the head of the first proximal phalanx and base of the first distal phalanx. Additional lytic change is noted along the diaphysis of the third proximal phalanx and subtle changes to the fourth proximal phalanx. Bony overlap from persistent flexion of the toes limits evaluation no acute fracture or dislocation. Degenerative changes. Moderate enthesopathic spurring of the calcaneus SOFT TISSUES:Forefoot soft tissue swelling. Diffuse atherosclerosis EFFUSION:None visible. OTHER: Negative. XR/XR foot LT min 3V IMPRESSION: Lytic changes consistent with osteomyelitis centered at the first interphalangeal joint and third proximal phalanx Possible osteomyelitis involving the fourth proximal phalanx Electronically authenticated by: MARYAM AMEZCUA Date: 11/05/2023 11:02
[2023-11-05 10:56] LABS: Erythrocyte Sedimentation Rate >130 mm/hr (<=30)
--- NOTE | 2023-11-05 11:22 | ED.GENADUL1 ---
HPI - General Adult General Chief complaint: Wound/Laceration Stated complaint: LOWER EXTREMITY PAIN L FOOT Time Seen by Provider: 11/05/23 09:48 Source: patient Mode of arrival: ambulance Limitations: no limitations History of Present Illness HPI narrative: 68-year-old female presents for wounds on her left foot. She [facility]. She is a very poor historian. She cannot tell me if she seen a supervisor instrument mechanics before for this issue or how long these have been there. The third toe was noted to be blackened and the first and fourth toes are quite red and swollen, especially of the first toe. It has been malodorous and there is been some drainage. Related Data Home Medications Medication Instructions Recorded Confirmed clopidogrel 75 mg tablet 75 mg PO DAILY 04/06/23 11/05/23 gabapentin 300 mg capsule 300 mg PO Q8H 04/06/23 11/05/23 insulin glargine 100 unit/mL (3 55 unit subcut .qd 04/06/23 11/05/23 mL) subcutaneous pen (Lantus Solostar U-100 Insulin) lisinopril 2.5 mg tablet 2.5 mg PO DAILY 04/06/23 11/05/23 amlodipine 10 mg tablet 10 mg PO DAILY 07/29/23 11/05/23 aspirin 81 mg tablet,delayed 81 mg PO DAILY 07/29/23 11/05/23 release (Birgit Low Dose Aspirin) atorvastatin 40 mg tablet (Lipitor) 40 mg PO QPM 07/29/23 11/05/23 dapagliflozin propanediol 10 mg 10 mg PO DAILY 07/29/23 11/05/23 tablet (Farxiga) metoprolol succinate 50 mg 50 mg PO DAILY 07/29/23 11/05/23 tablet,extended release 24 hr (Toprol XL) spironolactone 25 mg tablet 12.5 mg PO DAILY 07/29/23 11/05/23 (Aldactone) acetaminophen 325 mg tablet 650 mg PO Q6H PRN fever or pain 11/05/23 11/05/23 (Tactinal) buspirone 5 mg tablet 5 mg PO BID 11/05/23 11/05/23 docusate sodium 100 mg capsule 100 mg PO DAILY 11/05/23 11/05/23 (Colace) donepezil 5 mg tablet (Aricept) 5 mg PO DAILY 11/05/23 11/05/23 ergocalciferol (vitamin D2) 1,250 50,000 unit PO .Saturday11/05/23 11/05/23 mcg (50,000 unit) capsule insulin lispro 100 unit/mL 1 sliding scale dose subcut 11/05/23 11/05/23 subcutaneous pen (Humalog KwikPen USEASDIRECTD (U-100) Insulin) liraglutide 0.6 mg/0.1 mL (18 mg/3 1.2 mg subcut Q24H 11/05/23 11/05/23 mL) subcutaneous pen injector (Victoza 3-Heladio) loperamide 2 mg capsule 2 mg PO Q6H PRN loose stool 11/05/23 11/05/23 melatonin 3 mg capsule 3 mg PO DAILY 11/05/23 11/05/23 pantoprazole 40 mg tablet,delayed 40 mg PO DAILY 11/05/23 11/05/23 release (Protonix) sertraline 25 mg tablet (Zoloft) 25 mg PO DAILY 11/05/23 11/05/23 Allergies Allergy/AdvReac Type Severity Reaction Status Date / Time adhesive tape AdvReac Mild Verified 11/05/23 09:48 hydrocodone [From Vicodin] AdvReac Mild Nausea Verified 11/05/23 09:48 Review of Systems ROS Narrative Not obtainable, poor historian [facility] Medical History (Updated 11/05/23 @ 12:08 by Epi Edgar MD) Dehydration ?E86.0 - Dehydration (ICD-10) Dementia ?F03.90 - Unspecified dementia, unspecified severity, without behavioral disturbance, psychotic disturbance, mood disturbance, and anxiety (ICD-10) CAD (coronary artery disease) ?I25.10 - Atherosclerotic heart disease of [place] coronary artery without angina pectoris (ICD-10) Elevated troponin ?R77.8 - Other specified abnormalities of plasma proteins (ICD-10) Adult failure to thrive ?R62.7 - Adult failure to thrive (ICD-10) HLD (hyperlipidemia) ?E78.5 - Hyperlipidemia, unspecified (ICD-10) Hypertension ?I10 - Essential (primary) hypertension (ICD-10) Hypokalemia ?E87.6 - Hypokalemia (ICD-10) Type 2 diabetes mellitus with insulin therapy ?E11.9 - Type 2 diabetes mellitus without complications (ICD-10) ?Z79.4 - superintendent container terminal (current) use of insulin (ICD-10) Surgical History (Updated 07/28/23 @ 23:58 by Carlin Saenz) History of bilateral knee arthroplasty ?Z96.653 - Presence of artificial knee joint, bilateral (ICD-10) Hx of CABG ?Z95.1 - Presence of aortocoronary bypass graft (ICD-10) Family History (Updated 07/29/23 @ 00:00 by Carlin Saenz) Father Family history of CHF (congestive heart failure) Family history of cancer Family history of diabetes mellitus Family history of hypertension Mother Family history of CHF (congestive heart failure) Family history of cancer Family history of diabetes mellitus Family history of hypertension Family history of myocardial infarction Family history of stroke Social History (Updated 07/29/23 @ 00:04 by Carlin Saenz) Within the past year, how often did you have a drink containing alcohol: never Score interpretation: A score less than 3 is consistent with normal alcohol consumption. 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 Known occupational exposures/hazards: No Highest level of school completed/degree received: Associate degree: academic program Do you want help with school or training: No Are you now , , , , never or living with a partner: In a typical week, how many times do you talk on the telephone with family, friends, or neighbors: 3 or more times per week How often do you get together with friends or relatives: twice per week How often do you attend alevism or yarsanism services: 4 or more times per year Do you belong to any clubs or organizations such as alevism groups unions, fraternal or athletic groups, or school groups: yes Total score: 4 Score interpretation: A score of greater than or equal to 2 indicates the lowest level of social isolation. Little interest or pleasure in doing things: not at all Feeling down, depressed, or hopeless: not at all Feel stressed/tense/nervous/anxious/difficulty sleeping: not at all Due to disability, difficulty making decisions: No Do you think of yourself as: straight/heterosexual Gender Identity: female Exam Narrative Exam Narrative: Nurses note and vital signs reviewed and patient is not hypoxic. General: The patient appears in no apparent distress. Patient is resting comfortably on cart. Skin: Warm, dry, no pallor noted. There is no rash noted. Head: Normocephalic, atraumatic Eye: Normal conjunctiva, no drainage Ears, Nose, Mouth, and Throat: oral mucosa is moist. Nares patent. Cardiovascular: Regular Rate and Rhythm Respiratory: Patient is in no distress, no accessory muscle use, lungs are clear to auscultation, no wheezing, rales or rhonchi Back: non-tender GI: Soft and nontender Musculoskeletal: Left foot is examined. The first and fourth toes are erythematous and swollen. The third toe is blackened. There is erythema extending onto the dorsum of the foot. It is malodorous Neurological: Awake and alert Psychiatric: Cooperative Constitutional Vital Signs, click to edit/add: Last Vital Signs Temp 97.5 F L 11/05/23 09:48 Pulse 67 11/05/23 09:48 Resp 16 11/05/23 09:48 BP 139/69 11/05/23 09:48 Pulse Ox 97 11/05/23 09:48 O2 Del Method Room Air 11/05/23 09:48 Course Vital Signs Vital signs: Vital Signs Temperature 97.5 F L 11/05/23 09:48 Pulse Rate 67 11/05/23 09:48 Respiratory Rate 16 11/05/23 09:48 Blood Pressure 139/69 11/05/23 09:48 Pulse Oximetry 97 11/05/23 09:48 Oxygen Delivery Method Room Air 11/05/23 09:48 Temperature 97.5 F L 11/05/23 09:48 Pulse Rate 67 11/05/23 09:48 Respiratory Rate 16 11/05/23 09:48 Blood Pressure 139/69 11/05/23 09:48 Pulse Oximetry 97 11/05/23 09:48 Oxygen Delivery Method Room Air 11/05/23 09:48 Medical Decision Making MDM Narrative Medical decision making narrative: Osteomyelitis has been identified in this diabetic patient. Cultures were obtained and she was given IV Zosyn and vancomycin and podiatry consult is pending. She is being admitted. Differential Diagnosis Differential Diagnosis: Osteomyelitis, diabetic foot infection, cellulitis, abscess Lab Data Lab results reviewed: Yes I reviewed the patient's lab results Labs: Lab Results 11/05/23 Range/Units 10:21 WBC 12.7 H (4.0-11.0) 10^3/uL RBC 4.54 (4.20-5.40) 10^6/uL Hgb 11.9 L (12.0-16.0) g/dL Hct 38.8 (36.0-48.0) % MCV 85.5 (81.0-99.0) fL MCH 26.2 L (26.7-34.0) pg MCHC 30.7 (29.9-35.2) g/dL RDW 14.6 (11.0-15.0) % Plt Count 346 (150-450) 10^3/uL MPV 10.7 (9.5-13.5) fL Neut % (Auto) 76.6 H (43.0-75.0) % Lymph % (Auto) 12.0 L (20.5-60.0) % Lake % (Auto) 8.5 (1.7-12.0) % Eos % (Auto) 1.5 (0.9-7.0) % Baso % (Auto) 0.3 (0.2-2.0) % Neut # (Auto) 9.7 H (1.4-6.5) 10^3/uL Lymph # (Auto) 1.5 (1.2-3.8) 10^3/uL Lake # (Auto) 1.1 H (0.3-0.8) 10^3/uL Eos # (Auto) 0.2 (0.0-0.7) 10^3/uL Baso # (Auto) 0.0 (0.0-0.1) 10^3/uL Abs Immat Gran (auto) 0.14 H (0.00-0.03) 10^3/uL Imm/Tot Granulo (auto) 1.1 H (0.0-0.5) % ESR >130 H (<=30) mm/hr C-Reactive Protein 6.53 H (<=0.50) mg/dL Imaging Data Foot x-ray: Radiologist's impression: ITS Impressions Foot X-Ray 11/05/23 10:40 IMPRESSION: Lytic changes consistent with osteomyelitis centered at the first interphalangeal joint and third proximal phalanx Possible osteomyelitis involving the fourth proximal phalanx Electronically authenticated by: MARYAM AMEZCUA Date: 11/05/2023 11:02 Discharge Plan Discharge Chief Complaint: Wound/Laceration Clinical Impression: Osteomyelitis Patient Disposition: Admitted As Inpatient Time of Disposition Decision: 12:08 Condition: Good Prescriptions / Home Meds: No Action amlodipine 10 mg tablet 10 mg PO DAILY dapagliflozin propanediol [Farxiga] 10 mg tablet 10 mg PO DAILY atorvastatin [Lipitor] 40 mg tablet 40 mg PO QPM metoprolol succinate [Toprol XL] 50 mg tablet extended release 24 hr 50 mg PO DAILY spironolactone [Aldactone] 25 mg tablet 12.5 mg PO DAILY aspirin [Birgit Low Dose Aspirin] 81 mg tablet,delayed release (DR/EC) 81 mg PO DAILY insulin lispro [Humalog KwikPen Insulin] 100 unit/mL insulin pen 1 sliding scale dose subcut USEASDIRECTD docusate sodium [Colace] 100 mg capsule 100 mg PO DAILY buspirone 5 mg tablet 5 mg PO BID donepezil [Aricept] 5 mg tablet 5 mg PO DAILY loperamide 2 mg capsule 2 mg PO Q6H PRN (Reason: loose stool) melatonin 3 mg capsule 3 mg PO DAILY pantoprazole [Protonix] 40 mg tablet,delayed release (DR/EC) 40 mg PO DAILY sertraline [Zoloft] 25 mg tablet 25 mg PO DAILY acetaminophen [Tactinal] 325 mg tablet 650 mg PO Q6H PRN (Reason: fever or pain) Victoza 3-Heladio 0.6 mg/0.1 mL (18 mg/3 mL) pen injector 1.2 mg subcut Q24H ergocalciferol (vitamin D2) 1,250 mcg (50,000 unit) capsule 50,000 unit PO .SATURDAY gabapentin 300 mg capsule 300 mg PO Q8H insulin glargine [Lantus Solostar U-100 Insulin] 100 unit/mL (3 mL) insulin pen 55 unit SUBCUT .qd Rx Instructions: PER RETAIL FILL HX - LAST FILLED 02/03/23 FOR A 62 DAY SUPPLY lisinopril 2.5 mg tablet 2.5 mg PO DAILY Rx Instructions: PER RETAIL FILL HX - LAST FILLED 01/03/23 #90 FOR A 90 DAY SUPPLY 75% ADHERENCE RATE clopidogrel 75 mg tablet 75 mg PO DAILY Referrals: Physician,Non-Staff, MD [Primary Care Provider] - 1 week
[2023-11-05 11:25] LABS: C Reactive Protein 6.53 mg/dL (<=0.50)
[2023-11-05 11:29] LABS: Alanine Aminotransferase 9 U/L (14-59); Albumin Globulin Ratio 0.4; Albumin Level 2.3 g/dL (3.4-5.0); Alkaline Phosphatase 101 U/L (46-116); Aspartate Amino Transferase 11 U/L (15-37); BUN Creatinine Ratio 27.6; Bilirubin Total 0.3 mg/dL (0.2-1.0); Calcium 9.4 mg/dL (8.5-10.1); Carbon Dioxide 26.7 mmol/L (21.0-32.0); Chloride 105 mmol/L (98-107); Estimated GFR (African America >60 (>=60); Estimated GFR (Non-African Ame 57 (>=60); Globulin 5.4 g/dL; Glucose 173 mg/dL (74-106); Potassium 4.7 mmol/L (3.5-5.1); Sodium 141 mmol/L (136-145); Total Protein 7.7 g/dL (6.4-8.2)
[2023-11-05] MEDS: PIPERACILLIN SODIUM/TAZOBACTAM 3.375 GM in 0.9 % SODIUM CHLORIDE 50 ML IV ×2 (11:57→21:10)
[2023-11-05 12:18] LABS: PROCALCITONIN <0.05 ng/mL (0.00-0.50)
[2023-11-05] MEDS: VANCOMYCIN HCL 1,500 MG in 0.9 % SODIUM CHLORIDE 500 ML 250 MG IV (12:29)
[2023-11-05 13:06] LABS: Lactate/Lactic Acid 1.2 mmol/L (0.4-2.0)
--- NOTE | 2023-11-05 13:44 | PC.NURSE ---
left foot wound
[2023-11-05 13:52] VITALS: BP 152/84; PULSE 69; RESP 18; TEMP 36.7; O2SAT 94; BMI 32.3
--- NOTE | 2023-11-05 15:02 | P.HP_ITS ---
<Statement entered by To Kwon MD - 11/06/23 05:33> Pt seen and examined in ER. agree with input as provided by Nurse practitioner Awaiting assessment by podiatry This documentation has been reviewed and approved. H&P: HPI History of Present Illness Chief complaint: LOWER EXTREMITY PAIN L FOOT Narrative: 11/05/23 1430 This is a 68-year-old female patient with a past medical history as outlined below including poorly controlled DM2, CAD s/p remote history of stent placement/CABG, hypertension, dementia, and depression; who presented to the ED from a local SNF due to infected diabetic wounds of the left foot. The patient is a poor historian, but she reports onset of these wounds 2 to 3 weeks ago. She has been followed by the wound care nurse at the SNF and has reportedly been on PO antibiotics. As the toe infections appeared worse and necrotic today she was sent to the ED for further evaluation. Workup in the ED revealed leukocytosis (12.7), mild anemia (11.9) consistent with her baseline, elevated inflammatory markers (ESR greater than 130, CRP 6.53) and hyperglycemia (173). Her renal function is stable at her baseline CKD 2. Procalcitonin was negative. The patient's vital signs were stable without fever, hypoxia, or hypotension. An x-ray of the left foot revealed lytic changes consistent with osteomyelitis centered at the first interphalangeal joint and third proximal phalanx. Possible osteomyelitis involving the fourth proximal phalanx was also noted. Wound cultures of purulent drainage were obtained in the ED and blood cultures x 2 are pending. She was treated with IVPB Zosyn and vancomycin and is being admitted as an inpatient to the [facility]. At the time of my exam the patient is awake and alert and oriented x 3. She denies any chest pain, shortness of breath, N/V/D, abdominal pain, or foot pain. She has chronic neuropathy with minimal sensation from the ankle down bilaterally. She has purulent drainage from the first and fourth toes. The third toe is necrotic, loose, and likely non-viable. The wounds have a foul odor. The 5th toe was fractured during a fall prior to her last admission in July 2023, but no fracture was noted on imaging today. We will continue broad ABX coverage with Zosyn and Vanco, consult podiatry for possible toe amputations, and make the pt NPO at midnight pending possible surgery tomorrow. We will obtain an EKG, CXR, and 2D Echo to complete a pre-op evaluation. Review of Systems ROS Status of ROS 10 or more systems reviewed and unremark able except as noted in history and below [facility] Medical History (Updated 11/05/23 @ 15:51 by Aan Weldon NP) Renal cyst, acquired, right ?N28.1 - Cyst of kidney, acquired (ICD-10) Frequent falls ?R29.6 - Repeated falls (ICD-10) Fracture of toe ?S92.919A - Unspecified fracture of unspecified toe(s), initial encounter for closed fracture (ICD-10) Adult failure to thrive ?R62.7 - Adult failure to thrive (ICD-10) Weakness ?R53.1 - Weakness (ICD-10) Unable to care for self ?Z78.9 - Other specified health status (ICD-10) Dehydration ?E86.0 - Dehydration (ICD-10) Dementia ?F03.90 - Unspecified dementia, unspecified severity, without behavioral disturbance, psychotic disturbance, mood disturbance, and anxiety (ICD-10) CAD (coronary artery disease) ?I25.10 - Atherosclerotic heart disease of [place] coronary artery without angina pectoris (ICD-10) Elevated troponin ?R77.8 - Other specified abnormalities of plasma proteins (ICD-10) Adult failure to thrive ?R62.7 - Adult failure to thrive (ICD-10) HLD (hyperlipidemia) ?E78.5 - Hyperlipidemia, unspecified (ICD-10) Hypertension ?I10 - Essential (primary) hypertension (ICD-10) Hypokalemia ?E87.6 - Hypokalemia (ICD-10) Type 2 diabetes mellitus with insulin therapy ?E11.9 - Type 2 diabetes mellitus without complications (ICD-10) ?Z79.4 - correction (current) use of insulin (ICD-10) Surgical History (Updated 07/28/23 @ 23:58 by Carlin Saenz) History of bilateral knee arthroplasty ?Z96.653 - Presence of artificial knee joint, bilateral (ICD-10) Hx of CABG ?Z95.1 - Presence of aortocoronary bypass graft (ICD-10) Family History (Updated 07/29/23 @ 00:00 by Carlin Saenz) Father Family history of CHF (congestive heart failure) Family history of cancer Family history of diabetes mellitus Family history of hypertension Mother Family history of CHF (congestive heart failure) Family history of cancer Family history of diabetes mellitus Family history of hypertension Family history of myocardial infarction Family history of stroke Social History (Updated 07/29/23 @ 00:04 by Carlin Saenz) Within the past year, how often did you have a drink containing alcohol: never Score interpretation: A score less than 3 is consistent with normal alcohol consumption. 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 Known occupational exposures/hazards: No Highest level of school completed/degree received: Associate degree: academic program Do you want help with school or training: No Are you now , , , , never or living with a partner: In a typical week, how many times do you talk on the telephone with family, friends, or neighbors: 3 or more times per week How often do you get together with friends or relatives: twice per week How often do you attend cheondoism or gnosticism services: 4 or more times per year Do you belong to any clubs or organizations such as cheondoism groups unions, [employer] or athletic groups, or school groups: yes Total score: 4 Score interpretation: A score of greater than or equal to 2 indicates the lowest level of social isolation. Little interest or pleasure in doing things: not at all Feeling down, depressed, or hopeless: not at all Feel stressed/tense/nervous/anxious/difficulty sleeping: not at all Due to disability, difficulty making decisions: No Do you think of yourself as: straight/heterosexual Gender Identity: female Meds Home Medications and Allergies Home Medications Medication Instructions Recorded Confirmed Type clopidogrel 75 mg tablet 75 mg PO DAILY 04/06/23 11/05/23 History gabapentin 300 mg capsule 300 mg PO Q8H 04/06/23 11/05/23 History insulin glargine 100 unit/mL (3 55 unit subcut .qd 04/06/23 11/05/23 History mL) subcutaneous pen (Lantus Solostar U-100 Insulin) lisinopril 2.5 mg tablet 2.5 mg PO DAILY 04/06/23 11/05/23 History amlodipine 10 mg tablet 10 mg PO DAILY 07/29/23 11/05/23 History aspirin 81 mg tablet,delayed 81 mg PO DAILY 07/29/23 11/05/23 History release (Birgit Low Dose Aspirin) atorvastatin 40 mg tablet (Lipitor) 40 mg PO QPM 07/29/23 11/05/23 History dapagliflozin propanediol 10 mg 10 mg PO DAILY 07/29/23 11/05/23 History tablet (Farxiga) metoprolol succinate 50 mg 50 mg PO DAILY 07/29/23 11/05/23 History tablet,extended release 24 hr (Toprol XL) spironolactone 25 mg tablet 12.5 mg PO DAILY 07/29/23 11/05/23 History (Aldactone) acetaminophen 325 mg tablet 650 mg PO Q6H PRN fever or pain 11/05/23 11/05/23 History (Tactinal) buspirone 5 mg tablet 5 mg PO BID 11/05/23 11/05/23 History docusate sodium 100 mg capsule 100 mg PO DAILY 11/05/23 11/05/23 History (Colace) donepezil 5 mg tablet (Aricept) 5 mg PO DAILY 11/05/23 11/05/23 History ergocalciferol (vitamin D2) 1,250 50,000 unit PO .Saturday11/05/23 11/05/23 History mcg (50,000 unit) capsule insulin lispro 100 unit/mL 1 sliding scale dose subcut 11/05/23 11/05/23 History subcutaneous pen (Humalog KwikPen USEASDIRECTD (U-100) Insulin) liraglutide 0.6 mg/0.1 mL (18 mg/3 1.2 mg subcut Q24H 11/05/23 11/05/23 History mL) subcutaneous pen injector (Victoza 3-Heladio) loperamide 2 mg capsule 2 mg PO Q6H PRN loose stool 11/05/23 11/05/23 History melatonin 3 mg capsule 3 mg PO DAILY 11/05/23 11/05/23 History pantoprazole 40 mg tablet,delayed 40 mg PO DAILY 11/05/23 11/05/23 History release (Protonix) sertraline 25 mg tablet (Zoloft) 25 mg PO DAILY 11/05/23 11/05/23 History Allergies Allergy/AdvReac Type Severity Reaction Status Date / Time adhesive tape AdvReac Mild Verified 11/05/23 09:48 hydrocodone [From Vicodin] AdvReac Mild Nausea Verified 11/05/23 09:48 Exam Constitutional Vital Signs, click to edit/add: Last Vital Signs Temp 98.0 F 11/05/23 13:52 Pulse 69 11/05/23 13:52 Resp 18 11/05/23 13:52 BP 152/84 H 11/05/23 13:52 Pulse Ox 94 L 11/05/23 13:52 O2 Del Method Room Air 11/05/23 13:52 Common normals: no apparent distress, oriented x3, alert and well nourished General appearance: cooperative Orientation/consciousness: Yes awake HENMT Common normals: normocephalic, head/scalp atraumatic, hearing grossly normal bilaterally, external nose normal and moist oral mucous membranes Eye Common normals: PERRL, EOMs intact bilaterally, conjunctivae normal and no scleral icterus Alignment: alignment normal Eyelid: eyelids normal Neck & C-Spine Common normals: full ROM, supple and no JVD Chest Common normals: inspection of chest normal Chest: symmetrical chest wall rise Respiratory Common normals: normal respiratory effort, no retractions and no use of accessory muscles Effort & inspection: able to speak in complete sentences Auscultation: wheezes inspiratory wheezes (Scattered faint, EI) Cardio Common normals: no JVD, regular rate, regular rhythm, S1 normal heart sound, S2 normal heart sound, no gallops, no clicks, no murmurs, no rub and peripheral pulses 2+ throughout GI Common normals: Normal to inspection, nondistended, normoactive bowel sounds present, soft to palpation, non-tender, no hepatosplenomegaly, no masses and no bruits Bladder/kidney exam: bladder normal to palpation Back & Pelvis Common normals: thoracic and lumbar spine normal to inspection Extremity Common normals: no pedal edema General: no clubbing and no cyanosis Left lower extremity: foot and digits (Open purulent wound anterior 1st toe. 3rd toe distal phalanx necrotic/loose) Other: 4th toe general maceration, purulent drainage posteriorly. Foul odor Neuro Jack Coma Scale: GCS not evaluated Common normals: CN's II-XII intact bilaterally, moves all extremities, no focal motor deficits and no sensory deficits noted Speech: speech normal Sensory exam: sensory level loss detected (Above ankles to toes bilaterally, chronic) Psych Common normals: mental status grossly normal, thought process normal, affect normal and activity/motor behavior normal Results Labs Labs: Short CBC 11/05/23 Range/Units 10:21 WBC 12.7 H (4.0-11.0) 10^3/uL Hgb 11.9 L (12.0-16.0) g/dL Hct 38.8 (36.0-48.0) % Plt Count 346 (150-450) 10^3/uL BMP 11/05/23 10:21 Sodium 141 Potassium 4.7 Chloride 105 Carbon Dioxide 26.7 BUN 27.0 H Creatinine 0.98 Glucose 173 H Calcium 9.4 Liver Function 11/05/23 Range/Units 10:21 Total Bilirubin 0.3 (0.2-1.0) mg/dL AST 11 L (15-37) U/L ALT 9 L (14-59) U/L Alkaline Phosphatase 101 (46-116) U/L Albumin 2.3 L (3.4-5.0) g/dL Pulse Oximetry Attestation: I have reviewed the pertinent pulse oximetry results. Assessment and Plan Assessment and Plan (1) Osteomyelitis: Assessment and Plan: ACUTE * Adm inpatient * Osteo confirmed on foot XR, purulent infection on exam * IVPB Zosyn and Vancomycin w/ pharmacy to dose * C/S Dr Montemayor - we appreciate his assistance with this pt's care * NPO at midnight * EKG, CXR, Limited Echo for preop evaluation in pt w/ CAD and hx of CABG * Hold home plavix and ASA pre-op * DVT prophylaxis w/ Lovenox, then hold for surgery * LR IVF at 125/hr to maintain hydration while NPO * CBC, CMP, ESR, CRP daily (2) Diabetic infection of left foot: Assessment and Plan: ACUTE * Multiple non-healing DM wounds to toes of the L foot * Foul, purulent drainage noted - failed OP antibiotics at SNF * Wound cultures obtained in ED - pending * BC X 2 obtained in ED - pending * IVPB Zosyn & Vanco for broad gram neg/pos coverage (risk for pseudomonas and MRSA) * C/S Podiatry - see above * BP/mentation stable, LA and PCT WNL - no cliinical concern for sepsis at this time * CBC, CMP, ESR, CRP daily (3) Type 2 diabetes mellitus with insulin therapy: Assessment and Plan: CHRONIC * Poorly controlled - hyperglycemia on arrival in ED * Med CC diet * ACHS glucometer checks * Med dose SSI correction - low threshold to increase to high dose pending clinical course * Continue home HS Lantus and Victoza * Hold home Farxiga for now d/t increased risk for euglycemic DKA w/ acute infection (4) CAD (coronary artery disease): Assessment and Plan: CHRONIC * Hold home plavix and ASA pre-operatively * Resume when clinically indicated (5) Dementia: Assessment and Plan: CHRONIC * Continue home Aricept Qualifiers: Dementia type: unspecified type Dementia severity: severe Dementia behavioral or psychological symptom: without behavioral, psychotic, or mood disturbance or anxiety Qualified Code(s): F03.C0 - Unspecified dementia, severe, without behavioral disturbance, psychotic disturbance, mood disturbance, and anxiety (6) Hypertension: Assessment and Plan: CHRONIC * Continue home lisinopril, amlodipine, Aldactone, and Toprol XL (7) HLD (hyperlipidemia): Assessment and Plan: CHRONIC * Continue home statin
--- NOTE | 2023-11-05 15:44 | XR_ITS ---
[address] [address] Patient Name: EMILY HARO MRN: [id number] date: 1955 Sex: F Assigned Patient Location: Current Patient Location: Accession/Order Number: [id number] Exam Date: 11/05/2023 17:52 Report Date: 11/05/2023 18:39 At the request of: VICTORINA CHAVEZ Procedure: XR chest 1V Exam: Radiographs: XR chest 1V Reason for exam: Preop evaluation Comparison: Chest x-ray dated 08/07/2023 XR/XR chest 1V IMPRESSION: Sternotomy. CABG. Coronary stent. Remainder of the chest is unremarkable. Electronically authenticated by: YOVANI CALI Date: 11/05/2023 18:39
--- NOTE | 2023-11-05 15:44 | ECG_ITS ---
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
--- NOTE | 2023-11-05 15:48 | CA_ITS ---
Patient Name: EMILY HARO MR#: [id number] : 1955 Exam Date: 11/05/2023 Ordering Doctor: VICTORINA CHAVEZ ECHOCARDIOGRAM REPORT PROCEDURE: CA ECHO LIMITED INDICATIONS: Preop evaluation, Hx of [place]/CABG COMPARISON: None. DESCRIPTION: Limited ECHOCARDIOGRAM Real-time transthoracic echocardiography with 2D and M-mode performed. QUALITY: Technical quality was good. LEFT VENTRICLE: Normal chamber size. Normal left ventricular wall thickness. LV EF: Global left ventricular systolic function is normal; visually estimated ejection fraction is 55 to 60%. No significant wall motion abnormalities. LEFT ATRIUM: Normal chamber size. RIGHT ATRIUM: Normal chamber size.. RIGHT VENTRICLE: Normal chamber size. Normal right ventricular systolic function. TRICUSPID VALVE: Normal mobility and thickness. MITRAL VALVE: Normal mobility and thickness. Mild mitral annular calcification. AORTIC VALVE: Normal trileaflet appearance. Thickened aortic valve. Normal leaflet mobility. AORTIC ROOT: Normal diameter and appearance. PULMONIC VALVE: Normal thickness and mobility. PERICARDIUM: No evidence of pericardial effusion. IVC: Collapses with inspirations. Normal size. CONCLUSION: 1. Global left ventricular systolic function is normal; visually estimated ejection fraction is 55 to 60% 2. Normal right ventricular size and systolic function 3. The left atrium is normal in size A limited echocardiogram was performed Adult Echocardiography Procedure Report Left Ventricle LVEDD (3.7 - 5.6 cm): 5.14 cm LVESD (2.2 - 4.0 cm): 4.13 cm LVIVS thickness (0.6 - 1.2 cm): 1.01 cm LVPW thickness (0.5 - 1.0 cm): 0.99 cm LVOT Diameter 2.26 cm Left Ventricular Ejection Fraction: 55.41 % Left Atrium LA Volume Index (2D A2C): 29.59 ml/m2 Left Atrium Systolic Dimension: 4.01 cm Mitral Valve Right Ventricle RV Internal Diastolic Dimension: 3.22 cm Aorta AO Root Diam: 3.40 cm Aortic Valve Tricuspid Valve Pulmonic Valve Right Atrium Right Atrium Systolic Pressure: 31.33 ml, 31.33 ml Dictated by: Gaby Sanchez M.D. on 11/06/2023 at 08:46 Approved by: Gaby Sanchez M.D. on 11/06/2023 at 08:49
--- NOTE | 2023-11-05 15:59 | P.PODCN_ITS ---
[facility] - Podiatry Data of Consult Patient: new to practice Consult date: 11/05/23 Requesting physician: To Kwon MD Primary care provider: Non-Staff Physician, Consult Narrative Reason for consult: left diabetic foot infection, dry gangrene Narrative: Patient is a 8-year-old female presents to [facility] for left foot wounds for approximately 3 weeks. Is a poor historian and is unsure how they started. She over the past few days noted increase in odor in the left third digit became black and presented to the emergency department. present at bedside. She denied any constitutional symptoms at time of visit. cc:: CC: To Kwon MD [facility] Medical History (Updated 11/05/23 @ 15:51 by Ana Weldon NP) Renal cyst, acquired, right ?N28.1 - Cyst of kidney, acquired (ICD-10) Frequent falls ?R29.6 - Repeated falls (ICD-10) Fracture of toe ?S92.919A - Unspecified fracture of unspecified toe(s), initial encounter for closed fracture (ICD-10) Adult failure to thrive ?R62.7 - Adult failure to thrive (ICD-10) Weakness ?R53.1 - Weakness (ICD-10) Unable to care for self ?Z78.9 - Other specified health status (ICD-10) Dehydration ?E86.0 - Dehydration (ICD-10) Dementia ?F03.90 - Unspecified dementia, unspecified severity, without behavioral disturbance, psychotic disturbance, mood disturbance, and anxiety (ICD-10) CAD (coronary artery disease) ?I25.10 - Atherosclerotic heart disease of [place] coronary artery without angina pectoris (ICD-10) Elevated troponin ?R77.8 - Other specified abnormalities of plasma proteins (ICD-10) Adult failure to thrive ?R62.7 - Adult failure to thrive (ICD-10) HLD (hyperlipidemia) ?E78.5 - Hyperlipidemia, unspecified (ICD-10) Hypertension ?I10 - Essential (primary) hypertension (ICD-10) Hypokalemia ?E87.6 - Hypokalemia (ICD-10) Type 2 diabetes mellitus with insulin therapy ?E11.9 - Type 2 diabetes mellitus without complications (ICD-10) ?Z79.4 - FCI (current) use of insulin (ICD-10) Surgical History (Updated 07/28/23 @ 23:58 by Carlin Saenz) History of bilateral knee arthroplasty ?Z96.653 - Presence of artificial knee joint, bilateral (ICD-10) Hx of CABG ?Z95.1 - Presence of aortocoronary bypass graft (ICD-10) Family History (Updated 07/29/23 @ 00:00 by Carlin Saenz) Father Family history of CHF (congestive heart failure) Family history of cancer Family history of diabetes mellitus Family history of hypertension Mother Family history of CHF (congestive heart failure) Family history of cancer Family history of diabetes mellitus Family history of hypertension Family history of myocardial infarction Family history of stroke Social History (Updated 07/29/23 @ 00:04 by Carlin Saenz) Within the past year, how often did you have a drink containing alcohol: never Score interpretation: A score less than 3 is consistent with normal alcohol consumption. 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 Known occupational exposures/hazards: No Highest level of school completed/degree received: Associate degree: academic program Do you want help with school or training: No Are you now , , , , never or living with a partner: In a typical week, how many times do you talk on the telephone with family, friends, or neighbors: 3 or more times per week How often do you get together with friends or relatives: twice per week How often do you attend hinduism or islam services: 4 or more times per year Do you belong to any clubs or organizations such as hinduism groups unions, fraternal or athletic groups, or school groups: yes Total score: 4 Score interpretation: A score of greater than or equal to 2 indicates the lowest level of social isolation. Little interest or pleasure in doing things: not at all Feeling down, depressed, or hopeless: not at all Feel stressed/tense/nervous/anxious/difficulty sleeping: not at all Due to disability, difficulty making decisions: No Do you think of yourself as: straight/heterosexual Gender Identity: female Exam Narrative Exam Narrative: Vascular: DP and PT pulse strongly palpable, bounding. CFT intact to left hallux and second digit. Left third digit is ischemic and dry. No ascending lymphangitis. Neuro: Light touch and gross sensation diminished. Protective sensation absent. Derm: Full-thickness ulceration dorsal left hallux, positive probe to bone. Hypergranular base with seropurulent exudate. Third and fourth digit full- thickness ulceration with dry gangrene and purulent discharge. No fluctuance crepitus or bogginess. Positive probe to bone. No tunneling or undermining. Superficial desquamation to the plantar sulcus of the digits. MSK: No palpatory tenderness elicited upon exam. No gross deformity. Compartments are soft and compressible, no pain with calf or thigh compression. Constitutional Vital Signs, click to edit/add: Last Vital Signs Temp 98.0 F 11/05/23 13:52 Pulse 69 11/05/23 13:52 Resp 18 11/05/23 13:52 BP 152/84 H 11/05/23 13:52 Pulse Ox 94 L 11/05/23 13:52 O2 Del Method Room Air 11/05/23 13:52 Assessment and Plan Assessment and Plan (1) Diabetic infection of left foot: (2) Osteomyelitis: (3) Hyperglycemia: Plan Examined evaluated. All findings discussed with patient all questions answered to patient's satisfaction. No labs and imaging reviewed. WBC 12.7, ESR greater than 130, CRP 6.5 and lactate 1.2. Her A1c was 10.2 today. X-ray demonstrates no soft tissue emphysema, however there are cortical erosive changes to the hallux as well as the third and fourth digits of the left foot. Monckeberg sclerosis noted throughout the left lower extremity. Left foot with dry gangrene of the third digit with UBALDO gangrenous ulceration and purulent discharge, full-thickness ulcer of the hallux with positive probe to bone signs of underlying osteomyelitis of the hallux as well as lesser digits. Based on clinical exam and workup, recommended surgical intervention including transmetatarsal amputation to the left foot. Discussed with her that given her calcified vessels as well as uncontrolled diabetes she is very high risk for complications including continued infection, wound healing as well as loss of limb or more proximal amputation. Will discuss with Dr. Montemayor in regards to timing. Likely OR . Currently on IV antibiotics. Dressing of Betadine moistened gauze, dry sterile dressing and loose Kerlix applied to the left foot. Avoid compression. Rest per primary, call with any questions or concerns.
--- NOTE | 2023-11-05 16:23 | SWNOTE1 ---
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 Pt is there with pending medicaid and they will take her back jail with pending medicaid. They could also skill her under medicare if pt needs rehab. KAREEM to check tomorrow and send updates to [facility].
[2023-11-05] MEDS: ENOXAPARIN SODIUM 40 MG/0.4 ML SYRINGE SUBQ (16:41)
[2023-11-05] MEDS: LACTATED RINGER'S SOLUTION 1,000 ML 125 ML IV (16:41)
[2023-11-05 17:20] LABS: Glucometer 215 mg/dL (74-106)
[2023-11-05] MEDS: INSULIN ASPART 300 UNIT/3 ML PEN SUBQ (17:41)
[2023-11-05 20:00] VITALS: RESP 18
[2023-11-05 21:07] VITALS: BP 130/76; PULSE 89; RESP 18; TEMP 36.9; O2SAT 92
[2023-11-05 21:07] LABS: Glucometer 143 mg/dL (74-106)
[2023-11-05] MEDS: ATORVASTATIN CALCIUM 40 MG TABLET PO (21:10)
[2023-11-05] MEDS: ACETAMINOPHEN 325 MG TABLET 650 MG PO (21:10)
[2023-11-05] MEDS: GABAPENTIN 300 MG CAPSULE PO (21:12)
[2023-11-05] MEDS: BUSPIRONE HCL 10 MG TABLET 5 MG PO (21:16)
[2023-11-06] VITALS (8 sets, daily range): BP systolic 116–146; BP diastolic 63–84; PULSE 69–95; RESP 16–20; TEMP 36.2–37.2; O2SAT 90–97
[2023-11-06] MEDS: VANCOMYCIN HCL 1,000 MG in 0.9 % SODIUM CHLORIDE 250 ML 250 MG IV ×2 (02:28→15:08)
[2023-11-06] MEDS: PIPERACILLIN SODIUM/TAZOBACTAM 3.375 GM in 0.9 % SODIUM CHLORIDE 50 ML IV ×3 (05:02→23:03)
[2023-11-06 06:05] LABS: Basophils Percent Auto 0.3 % (0.2-2.0); Eosinophils Absolute Auto 0.3 10^3/uL (0.0-0.7); Eosinophils Percent Auto 2.6 % (0.9-7.0); Hematocrit 35.8 % (36.0-48.0); Hemoglobin 11.3 g/dL (12.0-16.0); Immature Granulocytes Pct Auto 0.9 % (0.0-0.5); Lymphocytes Absolute Auto 1.9 10^3/uL (1.2-3.8); Lymphocytes Percent Auto 16.5 % (20.5-60.0); Mean Corpuscular HGB Conc 31.6 g/dL (29.9-35.2); Mean Corpuscular Hemoglobin 26.3 pg (26.7-34.0); Mean Corpuscular Volume 83.4 fL (81.0-99.0); Mean Platelet Volume 9.6 fL (9.5-13.5); Monocytes Absolute Auto 1.2 10^3/uL (0.3-0.8); Monocytes Percent Auto 9.8 % (1.7-12.0); Neutrophils Absolute Auto 8.2 10^3/uL (1.4-6.5); Neutrophils Percent Auto 69.9 % (43.0-75.0); Platelet Count 414 10^3/uL (150-450); Red Blood Count 4.29 10^6/uL (4.20-5.40); Red Cell Distribution Width 14.4 % (11.0-15.0); White Blood Count 11.7 10^3/uL (4.0-11.0)
[2023-11-06 06:19] LABS: Alanine Aminotransferase 12 U/L (14-59); Albumin Globulin Ratio 0.4; Albumin Level 2.1 g/dL (3.4-5.0); Alkaline Phosphatase 97 U/L (46-116); Anion Gap 13.8; Aspartate Amino Transferase 10 U/L (15-37); BUN Creatinine Ratio 26.3; Bilirubin Total 0.4 mg/dL (0.2-1.0); Calcium 8.9 mg/dL (8.5-10.1); Carbon Dioxide 24.1 mmol/L (21.0-32.0); Chloride 102 mmol/L (98-107); Estimated GFR (African America >60 (>=60); Estimated GFR (Non-African Ame 56 (>=60); Globulin 4.8 g/dL; Glucose 114 mg/dL (74-106); Potassium 3.9 mmol/L (3.5-5.1); Sodium 136 mmol/L (136-145); Total Protein 6.9 g/dL (6.4-8.2)
[2023-11-06 06:37] LABS: Erythrocyte Sedimentation Rate >130 mm/hr (<=30)
[2023-11-06 06:55] LABS: C Reactive Protein 8.16 mg/dL (<=0.50)
[2023-11-06] MEDS: METOPROLOL SUCCINATE 50 MG TAB.ER.24H PO (09:21)
--- NOTE | 2023-11-06 09:41 | CM.NOTE ---
Rounds made with Dr. Kwon, pt will go to OR today. PT and OT will evaluate pt, pt came from [place] ([facility]). SW and Case Management will follow pt for possible skilled needs at discharge.
[2023-11-06] MEDS: LACTATED RINGER'S SOLUTION 1,000 ML 125 ML IV ×2 (09:50→14:06)
--- NOTE | 2023-11-06 10:01 | CM.NOTE ---
Important Message From [employer] discussed with pt, pt verbalizes understanding and signs paper. Original given to pt and copy placed on pt's chart.
[2023-11-06 11:16] LABS: Glucometer 134 mg/dL (74-106)
--- NOTE | 2023-11-06 11:28 | P.PN_ITS ---
<Statement entered by To Kwon MD - 11/06/23 19:06> This documentation has been reviewed and approved. Patient was seen and evaluated this morning. I also seen the patient in the ER the previous day. Patient looks improved this morning. This is prior to surgery. Agree with input and diagnoses provided by nurse practitioner. No change in physical exam either. Added diagnosis Leukocytosis on admission-improved Iron deficiency anemia-Down somewhat today. Progress Note: Subjective Subjective Interval history: 11/06/23 0945 The patient is resting in bed comfortably. She is requesting a drink of water, but is n.p.o. for surgery in a few hours. She denies any pain in the affected foot, and denies chest pain, shortness of breath, or nausea and vomiting. Surgery is planned around noon by Dr Montemayor for a transmetatarsal amputation of the left foot. The patient has mild dementia, but is A&O x 3 and fully aware of her planned surgery today and the intended procedure. Exam Constitutional Vital Signs, click to edit/add: Last Vital Signs Temp 99 F 11/06/23 05:36 Pulse 95 H 11/06/23 07:55 Resp 18 11/06/23 05:36 BP 145/84 H 11/06/23 07:55 Pulse Ox 90 L 11/06/23 05:36 O2 Del Method Room Air 11/06/23 05:36 Common normals: no apparent distress, oriented x3 and alert General appearance: cooperative Orientation/consciousness: Yes awake HENNV Common normals: normocephalic, head/scalp atraumatic and hearing grossly normal bilaterally Eye Common normals: PERRL, EOMs intact bilaterally, conjunctivae normal and no scleral icterus General eye: normal appearance of both eyes Chest Common normals: inspection of chest normal Chest: symmetrical chest wall rise Respiratory Common normals: normal respiratory effort, no use of accessory muscles and clear to auscultation bilaterally Effort & inspection: able to speak in complete sentences Auscultation: diminished lung sounds (BLL) Cardio Common normals: regular rate, regular rhythm, S1 normal heart sound, S2 normal heart sound, no murmurs and peripheral pulses 2+ throughout GI Common normals: Normal to inspection, nondistended, normoactive bowel sounds present, soft to palpation, non-tender and no hepatosplenomegaly Bladder/kidney exam: bladder normal to palpation Extremity Common normals: no calf tenderness General: no clubbing, no cyanosis and no edema Left lower extremity: foot and digits (Kerlex drsg per podiatry remains in place. Purulent drng noted. Foul odor) Neuro Common normals: CN's II-XII intact bilaterally, moves all extremities and no focal motor deficits Psych Common normals: mental status grossly normal Progress Note: Objective Labs Labs: Short CBC 11/06/23 Range/Units 05:51 WBC 11.7 H (4.0-11.0) 10^3/uL Hgb 11.3 L (12.0-16.0) g/dL Hct 35.8 L (36.0-48.0) % Plt Count 414 (150-450) 10^3/uL BMP 11/05/23 11/06/23 10:21 05:51 Sodium 141 136 Potassium 4.7 3.9 Chloride 105 102 Carbon Dioxide 26.7 24.1 BUN 27.0 H 26.0 H Creatinine 0.98 0.99 Glucose 173 H 114 H Calcium 9.4 8.9 Liver Function 11/05/23 11/06/23 Range/Units 10:21 05:51 Total Bilirubin 0.3 0.4 (0.2-1.0) mg/dL AST 11 L 10 L (15-37) U/L ALT 9 L 12 L (14-59) U/L Alkaline Phosphatase 101 97 (46-116) U/L Albumin 2.3 L 2.1 L (3.4-5.0) g/dL Progress Note: A&P Assessment and Plan (1) Diabetic infection of left foot: Assessment and Plan: ACUTE * Multiple non-healing DM wounds to toes of the L foot - see Osteo * Continue IVPB Zosyn and Vancomycin w/ pharmacy to dose * C/S Dr Montemayor - we appreciate his assistance with this pt's care * NPO pending OR later today * Hold home plavix and ASA pre-op * DVT prophylaxis w/ Lovenox on hold for surgery later today * EKG, 2D Echo, CXR unremarkable. * Pt is a moderate cardiac risk for surgery (6.6% Florencio Revised Index) * Medically stable for surgery today * Continue LR IVF at 125/hr to maintain hydration while NPO * CBC, CMP, ESR, CRP daily (2) Osteomyelitis: Assessment and Plan: ACUTE * Osteo confirmed on foot XR 11/05/23, purulent infection on exam * Failed OP antibiotics at SNF * Wound cultures obtained in ED - pending * BC X 2 obtained in ED - pending * Continue IVPB Zosyn & Vanco for broad gram neg/pos coverage (risk for pseudomonas and MRSA) * C/S Podiatry - see above * BP/mentation stable, LA and PCT WNL - no clinical concern for sepsis at this time * CBC, CMP, ESR, CRP daily (3) Hyperglycemia: Assessment and Plan: CHRONIC * Poorly controlled - hyperglycemia on arrival in ED * A1C 10.2 indicated poorly controlled DM2 at baseline * Med CC diet * ACHS glucometer checks * Med dose SSI correction - low threshold to increase to high dose pending clinical course * Continue home HS Lantus and Victoza * Hold home Farxiga for now d/t increased risk for euglycemic DKA w/ acute infection (4) Type 2 diabetes mellitus with insulin therapy: Assessment and Plan: CHRONIC * Hold home plavix and ASA pre-operatively * Resume when clinically indicated (5) Hypertension: Assessment and Plan: CHRONIC * Continue home lisinopril, amlodipine, Aldactone, and Toprol XL (6) HLD (hyperlipidemia): Assessment and Plan: CHRONIC * Continue home statin (7) CAD (coronary artery disease): Assessment and Plan: CHRONIC * ASA/plavix on hold until after surgery * continue home statin and BB (8) Dementia: Assessment and Plan: CHRONIC * Continue home Aricept Qualifiers: Dementia type: unspecified type Dementia severity: severe Dementia behavioral or psychological symptom: without behavioral, psychotic, or mood disturbance or anxiety Qualified Code(s): F03.C0 - Unspecified dementia, severe, without behavioral disturbance, psychotic disturbance, mood disturbance, and anxiety
--- NOTE | 2023-11-06 11:40 | SWNOTE1 ---
SW sent updates to ek. Updates included face sheet, ER note, H&P, progress notes, labs, vitals, diagnostic imaging, and med list. Pt is going to OR today.
[2023-11-06 12:08] LABS: Glucometer 115 mg/dL (74-106)
--- NOTE | 2023-11-06 12:48 | PC.NURSE ---
1221 patient positioned by BRIANDA ramirez. 2 mg of versed and 50 mg of fentynal given. popliteal block area located on ultra sound picture taken block meds inserted and completed at 1224. Next spot located adductor located on ultra sound block inserted picture was obatained procedure completed at 1230 patient tolerated well.
[2023-11-06] MEDS: VANCOMYCIN HCL 500 MG VIAL 1000 MG TOPICAL (13:51)
--- NOTE | 2023-11-06 14:33 | XR_ITS ---
The [address] [address] Patient Name: EMILY HARO MRN: [id number] date: 1955 Sex: F Assigned Patient Location: [place] Current Patient Location: [place] Accession/Order Number: [id number] Exam Date: 11/06/2023 14:40 Report Date: 11/06/2023 15:32 At the request of: LILLIE WEISS Procedure: XR foot LT min 3V STUDY: XR foot LT min 3V, [id number] HISTORY: osteomyelitis s/p transmet amp COMPARISON: Left foot x-rays 11/05/2023 FINDINGS: Overlying bandage material obscures fine bony detail. Status post transmetatarsal amputation which is within expected limits. No unexpected fracture demonstrated. Extensive vascular calcifications. No dislocation or suspicious osseous lesion. Plantar calcaneal spur and Achilles insertional enthesopathy. XR/XR foot LT min 3V IMPRESSION: Partial obscuration by the overlying bandage material. Given this limitation, expected radiographic appearance from the transmetatarsal amputation. Electronically authenticated by: MELISSA ALEXIS Date: 11/06/2023 15:32
--- NOTE | 2023-11-06 15:28 | PM.ORONB ---
Brief Operative Note Date of procedure: 11/06/23 Pre-op diagnosis: Left foot acute osteomyelitis, diabetic foot ulcer with bone necrosis Post-op diagnosis: other (left foot acute osteomyelitis, diabetic foot ulcer with bone necrosis, type 2 diabetees with peripheral neuropathy, foot ulcer and gangrene) Procedure: PROCEDURES PERFORMED: left transmetatarsal amputation and application of short leg splint INDICATION FOR PROCEDURE:see consultation note for details INTRAOPERATIVE FINDINGS: necrotic soft tissue and bone of the 3rd 4th and 5th toes. 3rd toe eschar consistent with ischemia and gangrene. Purulence and necrotic soft tissue and noted plantar central forefoot stump metatarsal heads three and four. PROCEDURES IN DETAIL: Patient was identified in pre op and consent was reviewed. Correct side and site were identified and marked. Pre-op antibiotics were started. Patient was brought to OR suite and place on table in a supine position. General anesthesia was administered. Tourniquet applied. Operative extremity was prepped and draped in usual sterile fashion. Formal time-out was performed and the foot/ankle were exsanguinated and tourniquet inflated. A fishmouth incision was placed over the distal foot. Sharp dissection down to bone was performed. An elevator was used to raised full-thickness flap dorsally. Then a sagittal saw was used to perform osteotomies of each metatarsal taking care to preserve metatarsal parabola and avoid any bony prominences. Then with a comminution sharp and blunt dissection the distal forefoot was amputated and passed back table for specimen. the tourniquet was deflated and hyperemic response is noted. Surgical site was irrigated with 3 L normal saline and hemostasis was controlled with temporary pressure and elevation. 1 g of vancomycin powder was placed into the surgical site. The incision was closed in one layer. an incisional wound VAC was then placed accordingly over the incision and suction was obtained. Multiple layers of cast padding were then applied to ensure all bony prominences were well-padded. A plaster posterior splint was then applied which was held in place by Serafin wraps. Patient tolerated the procedure and anesthesia well and was transported to the recovery room with vital signs stable. POSTOPERATIVE PLAN: transfer to medical surgical unit Nonweightbearing left foot Physical therapy and social work consulted Continue broad-spectrum antibiotics while in house or until cultures return Patient may be discharged on by mouth antibiotics Will follow No additional surgery planned during this hospital stay Implants: none Anesthesia: MAC and regional Surgeon: Sean Montemayor Estimated blood loss (mL): 50 Tourniquet time (min): 15 Pathology: other (Forefoot amputation) Condition: stable Disposition: floor
[2023-11-06] MEDS: GABAPENTIN 300 MG CAPSULE PO ×2 (16:16→23:02)
--- NOTE | 2023-11-06 20:17 | RESP.RT ---
No PRN breathing tx given. No respiratory distress noted. Pt denies need.
[2023-11-06 20:24] LABS: Glucometer 410 mg/dL (74-106)
[2023-11-06] MEDS: ATORVASTATIN CALCIUM 40 MG TABLET PO (23:02)
[2023-11-06] MEDS: BUSPIRONE HCL 10 MG TABLET 5 MG PO (23:15)
[2023-11-06] MEDS: INSULIN ASPART 300 UNIT/3 ML PEN SUBQ (23:15)
[2023-11-07] MEDS: VANCOMYCIN HCL 1,000 MG in 0.9 % SODIUM CHLORIDE 250 ML 250 MG IV (03:10)
[2023-11-07] MEDS: LACTATED RINGER'S SOLUTION 1,000 ML 125 ML IV (03:12)
[2023-11-07] MEDS: OMEPRAZOLE 40 MG CAPSULE.DR PO (05:37)
[2023-11-07] MEDS: PIPERACILLIN SODIUM/TAZOBACTAM 3.375 GM in 0.9 % SODIUM CHLORIDE 50 ML IV (05:37)
[2023-11-07 05:42] VITALS: BP 129/65; PULSE 66; RESP 18; TEMP 36.7; O2SAT 94
[2023-11-07 06:04] LABS: Basophils Percent Auto 0.1 % (0.2-2.0); Eosinophils Percent Auto 0.1 % (0.9-7.0); Hematocrit 31.2 % (36.0-48.0); Hemoglobin 9.6 g/dL (12.0-16.0); Immature Granulocytes Abs Auto 0.13 10^3/uL (0.00-0.03); Immature Granulocytes Pct Auto 0.9 % (0.0-0.5); Lymphocytes Absolute Auto 1.3 10^3/uL (1.2-3.8); Lymphocytes Percent Auto 9.5 % (20.5-60.0); Mean Corpuscular HGB Conc 30.8 g/dL (29.9-35.2); Mean Corpuscular Hemoglobin 25.7 pg (26.7-34.0); Mean Corpuscular Volume 83.4 fL (81.0-99.0); Mean Platelet Volume 10.2 fL (9.5-13.5); Monocytes Absolute Auto 1.3 10^3/uL (0.3-0.8); Monocytes Percent Auto 9.2 % (1.7-12.0); Neutrophils Percent Auto 80.2 % (43.0-75.0); Platelet Count 398 10^3/uL (150-450); Red Blood Count 3.74 10^6/uL (4.20-5.40); Red Cell Distribution Width 14.1 % (11.0-15.0); White Blood Count 13.7 10^3/uL (4.0-11.0)
[2023-11-07 06:20] LABS: Erythrocyte Sedimentation Rate >130 mm/hr (<=30)
[2023-11-07 06:25] LABS: Alanine Aminotransferase 12 U/L (14-59); Albumin Globulin Ratio 0.4; Albumin Level 1.9 g/dL (3.4-5.0); Alkaline Phosphatase 103 U/L (46-116); Anion Gap 14.2; Aspartate Amino Transferase 11 U/L (15-37); BUN Creatinine Ratio 31.6; Bilirubin Total 0.3 mg/dL (0.2-1.0); Calcium 8.5 mg/dL (8.5-10.1); Chloride 103 mmol/L (98-107); Estimated GFR (African America >60 (>=60); Estimated GFR (Non-African Ame 59 (>=60); Globulin 4.7 g/dL; Glucose 245 mg/dL (74-106); Potassium 4.2 mmol/L (3.5-5.1); Sodium 136 mmol/L (136-145); Total Protein 6.6 g/dL (6.4-8.2)
[2023-11-07 06:32] LABS: C Reactive Protein 8.41 mg/dL (<=0.50)
[2023-11-07 07:45] VITALS: O2SAT 94
[2023-11-07 08:00] VITALS: RESP 16
[2023-11-07 08:04] LABS: Glucometer 295 mg/dL (74-106)
[2023-11-07 09:40] VITALS: BP 125/66
[2023-11-07] MEDS: METOPROLOL SUCCINATE 50 MG TAB.ER.24H PO (09:40)
[2023-11-07] MEDS: SPIRONOLACTONE 25 MG TABLET 12.5 MG PO (09:40)
[2023-11-07] MEDS: SERTRALINE HCL 50 MG TABLET 25 MG PO (10:04)
[2023-11-07 10:05] VITALS: BP 125/66
[2023-11-07] MEDS: LISINOPRIL 5 MG TABLET 2.5 MG PO (10:05)
[2023-11-07] MEDS: DOCUSATE SODIUM 100 MG CAPSULE PO (10:06)
[2023-11-07] MEDS: GABAPENTIN 300 MG CAPSULE PO (10:06)
[2023-11-07 10:07] VITALS: BP 125/66
[2023-11-07] MEDS: AMLODIPINE BESYLATE 5 MG TABLET 10 MG PO (10:07)
[2023-11-07] MEDS: BUSPIRONE HCL 10 MG TABLET 5 MG PO (10:07)
[2023-11-07] MEDS: INSULIN ASPART 300 UNIT/3 ML PEN SUBQ (10:09)
[2023-11-07] MEDS: INSULIN DETEMIR 300 UNIT/3 ML INSULN.PEN 55 UNIT SQ (10:13)
--- NOTE | 2023-11-07 10:42 | SWNOTE1 ---
KAREEM spoke to Ashley at [facility] in regards to pt and being skilled. Pt has no skilled medicare days left. She also can not get therapy under medicaid because her medicaid is still pending. KAREEM notified nurse practitioner.
--- NOTE | 2023-11-07 11:50 | P.DS_ITS ---
<Statement entered by Leif Pearson MD - 11/07/23 21:30> Patient seen and examined, agree with assessment and plan below. Developed wound on left foot and erythema. To ER and found osteomyelitis. Admitted and started broad spectrum antibiotics. Podiatry consulted and to OR for transmetatarsal amputation. Did well after surgery and cultures positive. Discharged in stable condition. Diagnosis: 1. Osteomyelitis 2. Left diabetic foot ulcer 3. DM2 with hyperglycemia 4. HTN 5. CAD 6. Dementia DS: Providers Provider Date of admission: 11/05/23 13:22 Primary care physician: Non-Staff PhysicianMD Consults: 11/05/23 14:05 Consult to Podiatry Routine Consulting Provider: Sean Montemayor Reason for consultation: Osteomyelitis mult L toes, DM foot infection Has provider been notified: No 11/06/23 14:30 Physical Therapy Eval and Treat Routine Reason for consultation: Gait training - NWB but ok with partial weight to heel for balance Has provider been notified: No Discharging clinician: Ana Weldon DS: Diagnosis Discharge Diagnosis (1) Diabetic infection of left foot: (2) Osteomyelitis: (3) Postoperative anemia: (4) Hyperglycemia: (5) Type 2 diabetes mellitus with insulin therapy: (6) Hypertension: (7) HLD (hyperlipidemia): (8) CAD (coronary artery disease): (9) Dementia: Qualifiers: Dementia behavioral or psychological symptom: without behavioral, ps ychotic, or mood disturbance or anxiety Dementia severity: severe Dementia type: unspecified type Qualified Code(s): F03.C0 - Unspecified dementia, severe, without behavioral disturbance, psychotic disturbance, mood disturbance, and anxiety DS: Summary Hospital Course Hospital Course: The patient was admitted with a diabetic foot infection of multiple toes on the left foot and osteomyelitis confirmed on imaging. She was initiated on IV Zosyn and vancomycin for broad gram-negative and gram-positive coverage. Dr Montemayor, information broker, was consulted. The patient was taken to the OR on 11/06/2023 where a left transmetatarsal amputation was performed. The patient's postoperative course has been unremarkable and she denies any pain due to her advancing peripheral neuropathy. Wound culture obtained in the ED prior to admission grew out Proteus penneri, Enterococcus faecium, and Staphylococcus aureus. Culture and sensitivity has resulted only on the Proteus bacteria which has multiple resistances identified. It is sensitive to the Zosyn the patient was prescribed during her stay. It is also sensitive to third-generation cephalosporins. As the patient is stable and in improved condition, she is being discharged back to her home long-term care living facility. She was prescribed a 2-week course of cefdinir at discharge. Her home aspirin and plavix were resumed at discharge and should be adequate DVT prophylaxis. She is NWB to the E per Dr Montemayor's instructions. She should follow up with Dr Montemayor next week. We will continue to monitor her wound culture sensitivity reports and will prescribe additional antibiotics if indicated. Time Spent with Patient Time attestation: Total time spent providing and/or coordinating discharge services: Time spent: greater than 30 minutes Specific discharge activities: Physical exam, discussion of discharge plan, questions answered. Exam Constitutional Vital Signs, click to edit/add: Last Vital Signs Temp 98.0 F 11/07/23 05:42 Pulse 66 11/07/23 05:42 Resp 16 11/07/23 08:00 BP 125/66 11/07/23 10:07 Pulse Ox 94 L 11/07/23 07:45 O2 Del Method Room Air 11/07/23 07:45 Common normals: no apparent distress, oriented x3 and alert General appearance: cooperative Orientation/consciousness: Yes awake HENKY Common normals: normocephalic and head/scalp atraumatic Eye Common normals: PERRL, EOMs intact bilaterally, conjunctivae normal and no scleral icterus Neck & C-Spine Common normals: no JVD Respiratory Common normals: normal respiratory effort, no use of accessory muscles and clear to auscultation bilaterally Effort & inspection: able to speak in complete sentences and symmetric chest movement Cardio Common normals: no JVD, regular rate, regular rhythm, S1 normal heart sound, S2 normal heart sound, no murmurs and peripheral pulses 2+ throughout GI Common normals: Normal to inspection, nondistended, normoactive bowel sounds present, soft to palpation and non-tender Bladder/kidney exam: bladder normal to palpation Extremity Common normals: full ROM, normal capillary refill and no pedal edema General: no clubbing and no cyanosis Left lower extremity: foot and digits (Postop Forefoot amp. Surgical drsg D&I) Neuro Common normals: moves all extremities, no focal motor deficits and no sensory deficits noted Speech: speech normal Psych Common normals: mental status grossly normal and activity/motor behavior normal DS: Data Data Completed and Pending Labs on day of discharge: Labs from last 24 hours 11/07/23 11/07/23 11/07/23 10:54 07:58 05:26 WBC 13.7 H RBC 3.74 L Hgb 9.6 L Hct 31.2 L MCV 83.4 MCH 25.7 L MCHC 30.8 RDW 14.1 Plt Count 398 MPV 10.2 Neut % (Auto) 80.2 H Lymph % (Auto) 9.5 L Harnett % (Auto) 9.2 Eos % (Auto) 0.1 L Baso % (Auto) 0.1 L Neut # (Auto) 11.0 H Lymph # (Auto) 1.3 Harnett # (Auto) 1.3 H Eos # (Auto) 0.0 Baso # (Auto) 0.0 Abs Immat Gran (auto) 0.13 H Imm/Tot Granulo (auto) 0.9 H ESR >130 H Sodium 136 Potassium 4.2 Chloride 103 Carbon Dioxide 23.0 Anion Gap 14.2 BUN 30.0 H Creatinine 0.95 Est GFR ( Amer) >60 Est GFR (Non-Af Amer) 59 L BUN/Creatinine Ratio 31.6 Glucose 245 H Calcium 8.5 Total Bilirubin 0.3 AST 11 L ALT 12 L Alkaline Phosphatase 103 C-Reactive Protein 8.41 H Total Protein 6.6 Albumin 1.9 L Globulin 4.7 Albumin/Globulin Ratio 0.4 Vancomycin Trough 17.0 POC Glucose 295 H 11/06/23 11/06/23 20:09 12:06 WBC RBC Hgb Hct MCV MCH MCHC RDW Plt Count MPV Neut % (Auto) Lymph % (Auto) Harnett % (Auto) Eos % (Auto) Baso % (Auto) Neut # (Auto) Lymph # (Auto) Harnett # (Auto) Eos # (Auto) Baso # (Auto) Abs Immat Gran (auto) Imm/Tot Granulo (auto) ESR Sodium Potassium Chloride Carbon Dioxide Anion Gap BUN Creatinine Est GFR ( Amer) Est GFR (Non-Af Amer) BUN/Creatinine Ratio Glucose Calcium Total Bilirubin AST ALT Alkaline Phosphatase C-Reactive Protein Total Protein Albumin Globulin Albumin/Globulin Ratio Vancomycin Trough POC Glucose 410 H 115 H Preliminary micro results at discharge 11/05/23 10:22 Abscess Culture - Preliminary Foot Left Proteus penneri Enterococcus faecium Imaging Chest x-ray: Radiologist's impression: IMPRESSION: Sternotomy. CABG. Coronary stent. Remainder of the chest is unremarkable. L Foot XR: Radiologist's impression: 11/05/23 IMPRESSION: Lytic changes consistent with osteomyelitis centered at the first interphalangeal joint and third proximal phalanx Possible osteomyelitis involving the fourth proximal phalanx 11/06/23 IMPRESSION: Partial obscuration by the overlying bandage material. Given this limitation, expected radiographic appearance from the transmetatarsal amputation. Discharge Plan Discharge Disposition: er [facility] Condition: Good Discharge Medications: New cefdinir 300 mg capsule 300 mg PO BID 14 Days Qty: 28 0RF Continued amlodipine 10 mg tablet 10 mg PO DAILY dapagliflozin propanediol [Farxiga] 10 mg tablet 10 mg PO DAILY atorvastatin [Lipitor] 40 mg tablet 40 mg PO QPM metoprolol succinate [Toprol XL] 50 mg tablet extended release 24 hr 50 mg PO DAILY spironolactone [Aldactone] 25 mg tablet 12.5 mg PO DAILY aspirin [Birgit Low Dose Aspirin] 81 mg tablet,delayed release (DR/EC) 81 mg PO DAILY insulin lispro [Humalog KwikPen Insulin] 100 unit/mL insulin pen 1 sliding scale dose subcut USEASDIRECTD docusate sodium [Colace] 100 mg capsule 100 mg PO DAILY buspirone 5 mg tablet 5 mg PO BID donepezil [Aricept] 5 mg tablet 5 mg PO DAILY loperamide 2 mg capsule 2 mg PO Q6H PRN (Reason: loose stool) melatonin 3 mg capsule 3 mg PO DAILY pantoprazole [Protonix] 40 mg tablet,delayed release (DR/EC) 40 mg PO DAILY sertraline [Zoloft] 25 mg tablet 25 mg PO DAILY acetaminophen [Tactinal] 325 mg tablet 650 mg PO Q6H PRN (Reason: fever or pain) Victoza 3-Heladio 0.6 mg/0.1 mL (18 mg/3 mL) pen injector 1.2 mg subcut Q24H ergocalciferol (vitamin D2) 1,250 mcg (50,000 unit) capsule 50,000 unit PO .SATURDAY gabapentin 300 mg capsule 300 mg PO Q8H insulin glargine [Lantus Solostar U-100 Insulin] 100 unit/mL (3 mL) insulin pen 55 unit SUBCUT .qd Rx Instructions: PER RETAIL FILL HX - LAST FILLED 02/03/23 FOR A 62 DAY SUPPLY lisinopril 2.5 mg tablet 2.5 mg PO DAILY Rx Instructions: PER RETAIL FILL HX - LAST FILLED 01/03/23 #90 FOR A 90 DAY SUPPLY 75% ADHERENCE RATE clopidogrel 75 mg tablet 75 mg PO DAILY Activity Restrictions/Additional Instructions: - Nonweightbearing left foot - Recommend follow up CBC to monitor post op anemia - Leave wound vac in place and do not disturb the dressing or empty the container until the pt follows up with Dr Montemayor next week - Consider PT/OT consults if pt is approved for Medicaid coverage Forms: Portal Instructions Follow Up Appointments: @ 2pm with the [facility] [address] [phone] Discharge Date/Time: 11/07/23 13:17
--- NOTE | 2023-11-07 12:00 | CM.NOTE ---
Rounds made with Dr. Pearson. Plan for discharge today to [facility] as before.
--- NOTE | 2023-11-07 12:25 | SWNOTE1 ---
[facility] pharmacy cannot do IM Rocephin. Nurse practitioner changing to oral cefdinir. KAREEM let [facility] know. KAREEM sent over [place] med rec. KAREEM set up trips for 1:00-1:30. Pt is returning to [facility] snf. CRf given to nurse to complete. [facility]
--- NOTE | 2023-11-07 13:23 | PC.NURSE ---
Gave report to Pinky at [facility]
--- NOTE | 2023-11-08 11:37 | CM.NOTE ---
Positive wound cultures received from lab. Reviewed with Dr. Pearson. Instructed these be faxed to [facility] so the physician could add another antibibiotic if needed. Called [facility] and spoke to Pinky ([phone]) on the unit Ms. Jayashree perkins. Informed Pinky of positive culture results and faxed ([phone]) to Pinky. Pinky verbalized understanding. Fax successfully sent to [phone].
== END 2023-11-07 13:17 | DRG 617 ==
LOC: ER 12:10 → MS 13:32
PROVIDERS: Family Medicine; Podiatrist Foot & Ankle Surgery; Admitting Provider Family Medicine; Emergency Provider Emergency Medicine; Visit Provider Nurse Practitioner
PROC: 0Y6N0Z9 Detachment at Left Foot, Partial 1st Ray, Open Approach (ICD-10-PCS; principal; 2023-11-06 12:30)
DX: E11.69 Type 2 diabetes mellitus with other specified complication (principal); E11.52 Type 2 diabetes mellitus with diabetic peripheral angiopathy with gangrene; I96 Gangrene, not elsewhere classified; M86.172 Other acute osteomyelitis, left ankle and foot; L97.424 Non-pressure chronic ulcer of left heel and midfoot with necrosis of bone; I25.10 Atherosclerotic heart disease of native coronary artery without angina pectoris; F03.C0 Unspecified dementia, severe, without behavioral disturbance, psychotic disturbance, mood disturbance, and anxiety; E78.5 Hyperlipidemia, unspecified; E11.22 Type 2 diabetes mellitus with diabetic chronic kidney disease; E11.621 Type 2 diabetes mellitus with foot ulcer; N18.2 Chronic kidney disease, stage 2 (mild); D50.9 Iron deficiency anemia, unspecified; E11.65 Type 2 diabetes mellitus with hyperglycemia; I12.9 Hypertensive chronic kidney disease with stage 1 through stage 4 chronic kidney disease, or unspecified chronic kidney disease; D72.829 Elevated white blood cell count, unspecified; F32.A Depression, unspecified; F17.210 Nicotine dependence, cigarettes, uncomplicated; Z95.1 Presence of aortocoronary bypass graft; Z79.4 Long term (current) use of insulin; Z79.899 Other long term (current) drug therapy; Z79.82 Long term (current) use of aspirin; Z96.653 Presence of artificial knee joint, bilateral; B95.2 Enterococcus as the cause of diseases classified elsewhere; B96.4 Proteus (mirabilis) (morganii) as the cause of diseases classified elsewhere; B95.62 Methicillin resistant Staphylococcus aureus infection as the cause of diseases classified elsewhere
CPT/HCPCS: 36415; 64445; 64447; 71045; 73630; 80053; 80202; 82948; 83605; 84145; 85025; 85652; 86140; 87040; 87070; 87150; 87186; 88305; 88311; 93005; 93308; 96366; 96368; 96372; 97605; 99285; J0665; J1100; J1650; J2543; J2704; J3010; J3370

== ENCOUNTER 2023-11-12 09:00 | Outpatient (OUT) | payer MEDICARE, SELFPAY | END 2023-11-12 09:01 | disposition home or self-care (01) | LOC: WC 11-13 09:16 | PROVIDERS: Visit Provider Podiatrist Foot & Ankle Surgery | DX: T87.89 Other complications of amputation stump (principal) | CPT/HCPCS: G0463 ==

== ENCOUNTER 2023-11-19 14:00 | Outpatient (OUT) | payer MEDICARE, SELFPAY | END 2023-11-19 14:01 | disposition home or self-care (01) | LOC: WC 14:01 | PROVIDERS: Visit Provider Podiatrist Foot & Ankle Surgery | DX: T87.89 Other complications of amputation stump (principal) | CPT/HCPCS: 29515; G0463 ==

== ENCOUNTER 2023-11-29 10:41 | Outpatient (OUT) | payer MEDICARE, SELFPAY ==
--- OUTSIDE RECORDS SUMMARY | 2023-11-29 10:53 | XMS_ITS | CCD ---
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 Name Role Phone CAMERON LAURENT Unavailable Unavailable CAMERON LAURENT Unavailable Unavailable PETER SANTOS Unavailable Unavailable Peter Santos Primary Care Provider UnavailLatasha Rosario Attending Provider Unavailable YRIS QUAN Attending Unavailable PETER SANTOS Primary Care Unavailable REINALDO MARLOW Referring Unavailable RAYAFABIAN Jolly Admitting Unavailable ADELINA, ALFRED Admitting Unavailable ALFRED SAHU Attending Unavailable DR PETER SANTOS Primary Care Unavailable DR PETER SANTOS Primary Care Unavailable DR VICK MEDRANO Consulting Unavailable HOY ., DR TARIQ Admitting Unavailable HOY ., DR TARIQ Attending Unavailable HOY ., DR TARIQ Consulting Unavailable RENETTA ., DR GEORGETTE Suarez Consulting Unavailable ERNIE NIELSEN Consulting Unavailable SHAIKH Magy DUMONT Consulting Unavailable MARYSOL VALDOVINOS Consulting Unavailable ROWAN ., YAMILKA Attending Unavailable ROWAN ., YAMILKA Admitting Unavailable RENETTA ., DR GEORGETTE Suarez Consulting Unavailable DR PETER SANTOS Primary Care Unavailable DR MITZY HURD Consulting Unavailable LORENZO RANGEL Consulting Unavailable ROWAN ., YAMILKA Consulting Unavailable VICKEY, DR MITZY Tan Consulting Unavailable CECILIA CASTRO Attending Unavailable ESCOBAR Porter, CECILIA Admitting Unavailable DR PETER SANTOS Primary Care Unavailable CECILIA CASTRO Consulting Unavailable JORDAN ISAAC Consulting Unavailable DR PETER SANTOS Primary Care Unavailable REINALDO MARLOW Admitting Unavailable REINALDO MARLOW Attending Unavailable REINALDO MARLOW Unavailable YAZAN FABIAN Consulting Unavailable DR PETER SANTOS Primary Care Unavailable MARCELA, DR VICK Tan Admitting Unavailable MARCELA, DR VICK Tan Attending Unavailable DR VICK MEDRANO Consulting Unavailable REINALDO MARLOW Attending Unavailable RICHI, REINALDO Admitting Unavailable RICHI, REINALDO Consulting Unavailable JUDE, DR SHAH Primary Care Unavailable DOTSON, FABIOLA Consulting Unavailable DILEEP WU Consulting Unavailable MARIA D EVANS Consulting Unavailable MARKER ., DR SIMON Consulting Unavailable MARKER ., DR SIMON Attending Unavailable MARKER ., DR SIMON Admitting Unavailable SANTOS, DR SHAH Primary Care Unavailable SUN, EDY Consulting Unavailable SCHREIBMAN, ELIAN Consulting Unavailable NEFCY, LILLIE Consulting Unavailable DERROW, YAZAN Consulting Unavailable ESCOBAR ., CECILIA Attending Unavailable ESCOBAR ., CECILIA Admitting Unavailable SANTOS, DR SHAH Primary Care Unavailable ESCOBAR ., CECILIA Consulting Unavailable ERNIE NIELSEN Consulting Unavailable COATS, JOSEPH Consulting Unavailable SANTOS, DR SHAH Primary Care Unavailable HEMMER, DR JAROCHO Fagan Admitting Unavailable HEMMER, DR JAROCHO Fagan Attending Unavailable ADELINAALFRED Gavin Consulting Unavailable SANTOS, DR SHAH Primary Care Unavailable ADELINAALFRED Gavin Attending Unavailable ALFRED SAHU Admitting Unavailable JUDE, DR SHAH Primary Care Unavailable RICHI, REINALDO Consulting Unavailable FASHAIKH SANCHEZ H Admitting Unavailable SHAIKH DUMONT H Attending Unavailable DOTSON, FABIOLA Consulting Unavailable NIELSEN, ERNIE Consulting Unavailable FAWWAD, SANCHEZ H Consulting Unavailable NADERER, DR IGGY Haji Consulting Unavailable NADERER, DR IGGY Haji Attending Unavailable NADERER, DR IGGY Haji Admitting Unavailable SANTOS, DR SHAH Primary Care Unavailable LEDEZMA, PATRICIA Consulting Unavailable DIAB ., JUAN ALBERTO Consulting Unavailable Sonya Posada CNP Attending Unavailable SONYA POSADA Referring Unavailable PETER SANTOS Primary Care Unavailable Sonya Posada CNP Primary Care Provider [phone] Carlo SALES FORCE DEVELOPER - TERADATA DEVELOPERSonya Primary Care Provider [facility], 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- Angy Dailey Attending Provider [phone] ALFRED SAHU Attending Unavailable CHANDNI GREEN Referring Unavailable DANIEL CABELLO Admitting Unavailab le HORANI, YRIS Attending Unavailable GABY SANCHEZ Attending Unavailable IRINEO, DANIEL HALL Referring Unavailab le GANGWANI, DANIEL HALL Referring Unavailab le GANGWANI, DANIEL HALL Referring Unavailab le HORANI, YRIS Referring Unavailable HORANI, YRIS Referring Unavailable NON STAFF Attending Provider Unavailable NON STAFF Admitting Unavailable NON STAFF Attending Unavailable NO FAMILY, PHYSICIAN Primary Care Unavailable Angy Patel Attending Unavailable Angy Patel Admitting Unavailable Unavailable Unavailable Unavailable Allergies Allergy Classification Reported Allergen(s) Allergy Type Date of Onset Reaction(s) Facility (7 sources) Acetaminophen / HYDROcodone Drug Allergy 3 Nausea [facility] Repository (2 sources) Adhesive agent; Translations: [ADHESIVE] Propensity to adverse reactions (disorder) 7 [facility] Repository (1 source) PLASTIC BANDAGE TAMARA Drug allergy (disorder) 9 [facility] Repository (2 sources) Adhesive bandage Drug allergy (disorder) 3 [facility] (4 sources) Adhesive Tape Allergy to substance [facility] (4 sources) Bandaids Allergy to substance 3 [facility] (2 sources) Acetaminophen / HYDROcodone; Translations: [HYDROCODONE-ACET AMINOPHEN] Drug Allergy 7 Nausea And Vomiting [facility] [employer] (1 source) HYDROcodone; Translations: [HYDROCODONE BITARTRATE] Drug Allergy 1 [facility] Repository NEGATED: Highlighted row has been ruled out! (1 source) Other Propensity to adverse reactions 7 [facility] [employer] Medications Current Medications Medication Drug Class(es) Dates [...] disease (5 sources) Atherosclerotic heart disease of [place] coronary artery without angina pectoris; Translations: [Coronary [...] Translations: [Essential hypertension] Onset: 01-08-2023 03-07-2023 Chronic Headache; including migraine (3 sources) Headache; including migraine; Translations: [HEADACHE UNSPECIFIED] Onset: 08-23-2022 Malaise and fatigue (3 sources) Weakness; Translations: [WEAKNESS] Onset: 11-08-2022 Episodic Mood disorders (9 sources) Mild recurrent major depression; Translations: [Major depressive disorder, recurrent, mild] Onset: 03-07-2023 03-07-2023 Chronic Nutritional deficiencies (2 sources) Vitamin D deficiency, unspecified; Translations: [Moderate protein-calorie malnutrition] Onset: 11-15-2022 Chronic Other aftercare (1 source) 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; Translations: [LOCAL COORDINATOR CURRENT USE OF INSULIN] Onset: 01-14-2023 Episodic Other aftercare (1 source) Other terminal carman (current) drug therapy; Translations: [OTH ALF CURRENT DRUG THERAPY] Onset: 01-14-2023 Episodic Other aftercare (1 source) 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 technician (current) use of aspirin; Translations: [LOCAL COORDINATOR CURRENT USE OF ASPIRIN] Onset: 11-15-2022 Episodic Other aftercare (1 source) long-term (current) use of oral hypoglycemic drugs; Translations: [LOCAL COORDINATOR USE ORAL HYPOGLYCEMIC DX] Onset: 11-15-2022 Episodic [...] [PRESENCE AORTOCORONARY BYPASS GRAFT] Onset: 05-16-2022 Episodic Fluid and electrolyte disorders (2 sources) Dehydration; Translations: [Hyperkalemia] Onset: 02-02-2022 Episodic Fracture of neck of femur (hip) [...] Range Facility Office Visiton 06-12-2023 Follow-up visit [id number] Rylan Blanc 1955 F Date Provider Department Center 06/12/2023 [address], EHAB CARD [facility] No family history on file Level of Service:97780 MS OFFICE/OUTPATIENT ESTABLISHED MOD MDM 30-39 MIN Normal [facility] Basic Metabolic Panelon 04-24 Anion gap [Moles/Vol] 15.7 mmol/L High 6.0-15.0 [facility] Comment on above: Performed By: #### B MP #### [address] Calcium [Mass/Vol] 9.2 mg/dL Normal 8.6-10.3 [facility] Comment on above: Result Comment: PERF ORMED BY: [place] [address] PATHOLOGIST SENIOR TRAINING SPECIALIST WEN LOBO M.D. Performed By: #### B MP #### [place] [address] [place] Chloride [Moles/Vol] 107 mmol/L Normal 98-107 [facility] Comment on above: Performed By: #### B MP #### [address] CO2 [Moles/Vol] 20.2 mmol/L Low 21.0-31.0 [facility] Comment on above: Performed By: #### B MP #### [address] Creatinine [Mass/Vol] 1.02 mg/dL Normal 0.60-1.20 [facility] Comment on above: Performed By: #### B MP #### [place] [address] [place] GFR/1.73 sq M.predicted MDRD (S/P/Bld) [Vol rate/Area] mL/min/{1.73_m2} Normal [facility] Comment on above: Performed By: #### B MP #### [place] [address] [place] Glucose [Mass/Vol] 178 mg/dL High 70-100 [facility] Comment on above: Result Comment: [place] Glucose Reference Range is dependent on time and content of last meal. Glucose of more than 200 mg/dL in a nonstressed, ambulatory subject supports the diagnosis of Diabetes Mellitus. ADA recommended reference range Performed By: #### B MP #### [address] Potassium [Moles/Vol] 4.9 mmol/L Normal 3.5-5.1 [facility] Comment on above: Performed By: #### B MP #### [facility] [address] [place] [address] [place] Sodium [Moles/Vol] 138 mmol/L Normal 136-145 [facility] Comment on above: Performed By: #### B MP #### [facility] [address] [place] [id number] [place] Urea nitrogen [Mass/Vol] 23 mg/dL Normal 7-25 [facility] Comment on above: Performed By: #### B MP #### [facility] [address] [place] [id number] [place] Calcium [Mass/volume] in Ser um or PlasmaOrdered By: Angy Patel on 05-14-2023 Calcium [Mass/Vol] 9.2 mg/dL 8.6-10.3 [facility] Carbon dioxide, total [Moles /volume] in Serum or PlasmaOrdered By: Angy Patel on 05-14-2023 CO2 [Moles/Vol] 20.2 mmol/L 21.0-31.0 [facility] Chloride [Moles/volume] in S elizabeth or PlasmaOrdered By: Angy Patel on 05-14-2023 Chloride [Moles/Vol] 107 mmol/L 98-107 [facility] Creatinine [Mass/volume] in Serum or PlasmaOrdered By: Angy Patel on 05-14-2023 Creatinine [Mass/Vol] 1.02 mg/dL 0.60-1.20 [facility] Glucose [Mass/volume] in Ser um or PlasmaOrdered By: Angy Patel on 05-14-2023 Glucose [Mass/Vol] 178 mg/dL 70-100 [facility] Comment on above: ADA recommended refe rence rangeRandom Glucose Reference Range is dependent on time and content of last meal. Glucose of more than 200 mg/dL in a nonstressed, ambulatory subject supports the diagnosis of Diabetes Mellitus. No Panel InformationOrdered By: Angy Patel on 05-14-2023 Estimated GFR (CKD-EPI) > 60.0 mL/Min [facility] Creatinine Clearance (Chem N/A [facility] Potassium [Moles/volume] in Serum or PlasmaOrdered By: Angy Patel on 05-14-2023 Potassium [Moles/Vol] 4.9 mmol/L 3.5-5.1 [facility] Serum or plasma anion gap de terminationOrdered By: Angy Patel on 05-14-2023 Anion gap [Moles/Vol] 15.7 mmol/L 6.0-15.0 [facility] Sodium [Moles/volume] in Ser um or PlasmaOrdered By: Angy Patel on 05-14-2023 Sodium [Moles/Vol] 138 mmol/L 136-145 [facility] Urea nitrogen [Mass/volume] in Serum or PlasmaOrdered By: Angy Patel on 05-14-2023 Urea nitrogen [Mass/Vol] 23 mg/dL 7-25 [facility] 30on 05-06-2023 30 The patient is Moder ately Stable - Low risk of patient condition declining or worsening The patient's goals for the shift include Rest/Comfort The clinical goals for the shift include VSS and Discharge Planning Patient is being discharged [facility]. Attempted to call report but got a voicemail for [place]. Left my name and phone number. Will attempt to call back in 30 minutes. Report was given to [place]. [facility] 30 Daily Case Managemen t Update Multidisciplinary rounds have been completed. Barriers to Discharge: Awaiting pre-cert to [facility]. Diet: Dietary Orders (From admission, onward) Start [...] OT Six Click Score: 18 PT Recommendations: correction facility placement OT Recommendations: correction facility placement New Consults: Consult Orders (From admission, onward) Start Ordered 04/26/23 1357 Inpatient consult to Cardiology Once Specialty: Cardiology Provider: (Not yet assigned) Question Answer Comment Consulting Group CARDIOLOGY TEAM Reason for Consult? 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 Answer: eval 04/27/23 1306 04/27/23 1307 OT eval and treat Until therapy completed Question: Reason for OT? Answer: eval 04/27/23 1306 Normal [facility] 30 The patient is Moder ately Stable - Low risk of patient condition declining or worsening The patient's goals for the shift include TED The clinical goals for the shift include VSS Pt alert but confused. Able to feed self with set up. Incontinent of bowel/bladder. Awaiting SNF placement. Normal [facility] POCT GLUCOSE METER UNSOLICIT ED RESULTSon 05-06-2023 Glucose [Mass/Vol] 237 mg/dL High 70-105 [facility] Comment on above: Order Comment: Waive d Testing in the ED is performed under the ED CLIA certificate #[id number]. Result Comment: [email or web address] Performed By: #### L [id number] #### [facility] [address] [place] [address] Glucose [Mass/Vol] 137 mg/dL High 70-105 [facility] Comment on above: Order Comment: Waive d Testing in the ED is performed under the ED CLIA certificate #[id number]. Result Comment: [email or web address] Performed By: #### L [id number] #### [facility] [address] [place] [address] 30on 05-05-2023 30 The patient is Moder [...] from fall injury Outcome: Progressing Flowsheets (Taken 05/05/2023729) Free from fall injury: Assess patient frequently for physical needs Identify cognitive and physical deficits and behaviors that affect risk of falls [place] fall precautions as indicated by assessment Educate [...] (Taken 05/05/2023729) (more content not included)... Normal [facility] POCT GLUCOSE METER UNSOLICIT ED RESULTSon 05-05-2023 Glucose [Mass/Vol] 261 mg/dL High 70-105 [facility] Comment on above: Order Comment: Waive d Testing in the ED is performed under the ED CLIA certificate #[id number]. Result Comment: [email or web address] Performed By: #### L [id number] #### [facility] [address] [place] [address] Glucose [Mass/Vol] 136 mg/dL High 70-105 [facility] Comment on above: Order Comment: Waive d Testing in the ED is performed under the ED CLIA certificate #[id number]. Result Comment: [email or web address] Performed By: #### L [id number] ####[facility] [place] [address] Glucose [Mass/Vol] 255 mg/dL High 70-105 [facility] Comment on above: Order Comment: Waive d Testing in the ED is performed under the ED CLIA certificate #[id number]. Result Comment: [email or web address] Performed By: #### L [id number] #### [facility] [address] [place] [address] Glucose [Mass/Vol] 194 mg/dL High 70-105 [facility] Comment on above: Order Comment: Waive d Testing in the ED is performed under the ED CLIA certificate #[id number]. Result Comment: [email or web address] Performed By: #### L [id number] #### [facility] [address] [place] [address] 30on 05-04-2023 30 The patient is Moder [...] Progressing Flowsheets (Taken 05/04/2023 07 by Adilson Gallo RN) Free from fall injury: Assess patient frequently for physical needs Identify cognitive and physical deficits and behaviors that affect risk of falls [place] fall precautions as indicated by assessment Educate patient/family on patient safety, including physical limitations Instruct patient to call for assistance with activity based on assessment Modify environment to reduce risk of injury Consider OT/PT consult to assist with strengthening/mobility Problem: Discharge Planning Goal: Discharge to home or other facility with appropriate resources Outcome: Progressing Flowsheets (Taken 05/04/2023729 by Adilson Gallo RN) Discharge to home or other facility [...] and prevent overall improvement and discharge Normal [facility] 30 The patient is Moder ately Stable [...] Adilson Gallo RN Outcome: Progressing Flowsheets (Taken 05/04/2023909) Verbalizes/displays adequate comfort level or baseline comfort level: Encourage patient to monitor pain and request assistance Assess pain using appropriate pain scale Administer analgesics based on type and severity of pain and evaluate response 05/04/20231640 by Adilson Gallo RN Outcome: Progressing Flowsheets (Taken 05/04/2023909) Verbalizes/displays adequate comfort level or baseline comfort level: Encourage patient to monitor pain and request assistance Assess pain using appropriate pain scale Administer analgesics based on type and severity of pain and evaluate response Problem: Safety - Adult Goal: Free from fall injury 05/04/20231640 by Adilson Gallo RN Outcome: Progressing Flowsheets (Taken 05/04/2023729) Free from fall injury: Assess patient frequently for physical needs Identify cognitive and physical deficits and behaviors that affect risk of falls [place] fall precautions as indicated by assessment Educate patient/family on patient safety, including physical limitations Instruct patient to call for assistance with activity based on assessment Modify environment to reduce risk of injury Consider OT/PT consult to assist with strengthening/mobility 05/04/20231640 by Adilson Gallo RN Outcome: Progressing Flowsheets (Taken 05/04/2023729) Free from fall injury: Assess patient frequently for physical needs Identify cognitive and physical deficits and behaviors that affect risk of falls [place] fall precautions as indicated by assessment Educate [...] overall improvement and discharge 05/04/20231640 by Adilson Glalo RN Outcome: Progressing Flowsheets (Taken 05/04/2023729) Care [...] Dominick Velázquez (more content not included)... Normal [facility] BASIC METABOLIC PANELon 04-23 Anion gap [Moles/Vol] 10 mmol/L Normal 7-20 [facility] Comment on above: Performed By: #### L [id number] #### [facility] [address] [place] [address] Calcium [Mass/Vol] 9.4 mg/dL Normal 8.6-10.3 [facility] Comment on above: Performed By: #### L [id number] #### [facility] [address] [place] [address] Chloride [Moles/Vol] 108 mmol/L High 98-107 [facility] Comment on above: Performed By: #### L [id number] #### [facility] [address] [place] [address] CO2 [Moles/Vol] 24 mmol/L Normal 21-31 [facility] Comment on above: Performed By: #### L [id number] #### [facility] [address] [place] [address] Creatinine [Mass/Vol] 0.82 mg/dL Normal 0.60-1.20 [facility] Comment on above: Performed By: #### L [id number] #### [facility] [address] [place] [address] GLOMERULAR FILTRATION RATE ML/MIN/1.73 SQ M.PREDICTED 78.4 mL/min/1.73m*2 Normal >60.0 [facility] Comment on above: Result Comment: [facility]???s estimated glomerular filtration rate (eGFR) will no [...] individuals. Performed By: #### L [id number] #### [facility] [address] [place] [address] Glucose [Mass/Vol] 75 mg/dL Normal 70-100 [facility] Comment on above: Performed By: #### L [id number] #### [facility] [address] [place] [address] Potassium [Moles/Vol] 4.0 mmol/L Normal 3.5-5.1 [facility] Comment on above: Performed By: #### L [id number] #### [facility] [address] [place] [address] Sodium [Moles/Vol] 138 mmol/L Normal 136-145 [facility] Comment on above: Performed By: #### L [id number] #### [facility] [address] [place] [address] Urea nitrogen [Mass/Vol] 18 mg/dL Normal 7-25 [facility] Comment on above: Performed By: #### L [id number] #### [facility] [address] [place] [address] UREA NITROGEN/CREATININE (MASS RATIO) IN SER/PLAS 22.0 Normal [facility] Comment on above: Performed By: #### L [id number] #### [facility] [address] [place] [address] CBCon 05-04-2023 Erythrocyte distribution width (RBC) [Ratio] 13.7 % Normal 11.5-15.0 [facility] Comment on above: Performed By: #### L [id number] #### [facility] [address] [place] [address] ERYTHROCYTE MEAN CORPUSCULAR HEMOGLOBIN CONCENTRATION (G/DL) BY AUTOMATED 32.7 g/dL Normal 32.0-35.0 [facility] Comment on above: Performed By: #### L [id number] #### [facility] [address] [place] [address] Hematocrit (Bld) [Volume fraction] 39.7 % Normal 36.0-48.0 [facility] Comment on above: Performed By: #### L [id number] #### [facility] [address] [place] [address] Hemoglobin (Bld) [Mass/Vol] 13.0 g/dL Normal 12.0-15.0 [facility] Comment on above: Performed By: #### L [id number] #### [facility] [address] [place] [address] MCH (RBC) [Entitic mass] 28.3 pg Normal 27.0-33.0 [facility] Comment on above: Performed By: #### L [id number] #### [facility] [address] [place] [address] MCV (RBC) [Entitic vol] 86.3 fL Normal 82.0-98.0 [facility] Comment on above: Performed By: #### L [id number] #### [facility] [address] [place] [address] PLATELETS (10*3/UL) IN BLOOD AUTOMATED COUNT 383 10*3/uL Normal 150-400 [facility] Comment on above: Performed By: #### L [id number] #### [facility] [address] [place] [address] RBC (Bld) [#/Vol] 4.60 10*6/uL Normal 3.80-5.00 [facility] Comment on above: Performed By: #### L [id number] #### [facility] [address] [place] [address] WBC (Bld) [#/Vol] 8.84 10*3/uL Normal 4.00-10.60 [facility] Comment on above: Performed By: #### L [id number] #### [facility] [address] [place] [address] MAGNESIUMon 05-04-2023 Magnesium [Mass/Vol] 1.5 mg/dL Low 1.9-2.7 [facility] Comment on above: Performed By: #### L [id number] #### [facility] [address] [place] [address] POCT GLUCOSE METER UNSOLICIT ED RESULTSon 05-04-2023 Glucose [Mass/Vol] 181 mg/dL High 70-105 [facility] Comment on above: Order Comment: Waive d Testing in the ED is performed under the ED CLIA certificate #[id number]. Result Comment: [email or web address] Performed By: #### L [id number] #### [facility] [address] [place] [address] Glucose [Mass/Vol] 141 mg/dL High 70-105 [facility] Comment on above: Order Comment: Waive d Testing in the ED is performed under the ED CLIA certificate #[id number]. Result Comment: [email or web address] Performed By: #### L [id number] #### [facility] [address] [place] [address] Glucose [Mass/Vol] 189 mg/dL High 70-105 [facility] Comment on above: Order Comment: Waive d Testing in the ED is performed under the ED CLIA certificate #[id number]. Result Comment: [email or web address] Performed By: #### L [id number] #### [facility] [address] [place] [address] Glucose [Mass/Vol] 84 mg/dL Normal 70-105 [facility] Comment on above: Order Comment: Waive d Testing in the ED is performed under the ED CLIA certificate #[id number]. Result Comment: [email or web address] Performed By: #### L [id number] #### [facility] [address] [place] [address] TROPONIN Ion 05-04-2023 Troponin I.cardiac [Mass/Vol] 0.04 ng/mL Normal 0.00-0.04 [facility] Comment on above: Performed By: #### L [id number] #### [facility]) [address] [place] [address] 30on 05-03-2023 30 The patient is Moder [...] and behaviors that affect risk of falls [place] fall precautions as indicated by assessment Educate [...] maintained or improved Outcome: Progressing Flowsheets (Taken 05/03/2023799 by Sharon Aranda RN) Care Plan - [...] and prevent overall improvement and discharge Normal [facility] 30 The patient is Moder ately Stable - Low risk of patient condition declining or worsening The patient's goals for the shift include comfort The clinical goals for the shift include safety/VSS/heart cath Problem: Pain - Adult Goal: Verbalizes/displays adequate comfort level or baseline comfort level Outcome: Progressing Flowsheets (Taken 05/03/2023799) Verbalizes/displays adequate comfort level or baseline comfort [...] and behaviors that affect risk of falls [place] fall precautions as indicated by assessment Educate [...] maintained or improved Outcome: Progressing Flowsheets (Taken 05/03/2023799) Care Plan - Patient's Chronic Conditions and [...] Progressing Flowshe (more content not included)... Normal [facility] 30 Daily Case Managemen t Update Multidisciplinary rounds have been completed. 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 cath today Diet: Dietary Orders (From admission, onward) Start Ordered 05/03/23 0902 Diet NPO Diet effective now Comments: Sips with medications 05/03/23 0902 Physician Expected Discharge Date: 05/04/2023 Discharge Delays: Awaiting accepting facility [113] Waiting on discharge facility authorization [108] PT Six Click Score: 16 OT Six Click Score: 15 PT Recommendations: correction facility placement OT Recommendations: correction facility placement New Consults: Consult Orders (From admission, onward) Start Ordered 04/26/23 1357 Inpatient consult to Cardiology Once Specialty: Cardiology Provider: (Not yet assigned) Question Answer Comment Consulting Group CARDIOLOGY TEAM Reason for Consult? 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 Answer: eval 04/27/23 1306 04/27/23 1307 OT eval and treat Until therapy completed Question: Reason for OT? Answer: eval 04/27/23 1306 [facility] 30 The patient is Moder ately [...] and behaviors that affect risk of falls [place] fall precautions as indicated by assessment Educate [...] and prevent overall improvement and discharge Normal [facility] CBCon 05-03-2023 Erythrocyte distribution width (RBC) [Ratio] 13.5 % Normal 11.5-15.0 [facility] Comment on above: Performed By: #### L [id number] #### [facility] ([facility]) [address] [place] [address] ERYTHROCYTE MEAN CORPUSCULAR HEMOGLOBIN CONCENTRATION (G/DL) BY AUTOMATED 32.0 g/dL Normal 32.0-35.0 [facility] Comment on above: Performed By: #### L [id number] #### [facility] ([facility]) [address] [place] [address] Hematocrit (Bld) [Volume fraction] 40.6 % Normal 36.0-48.0 [facility] Comment on above: Performed By: #### L [id number] #### [facility] [address] [place] [address] Hemoglobin (Bld) [Mass/Vol] 13.0 g/dL Normal 12.0-15.0 [facility] Comment on above: Performed By: #### L [id number] #### [facility] [address] [place] [address] MCH (RBC) [Entitic mass] 27.9 pg Normal 27.0-33.0 [facility] Comment on above: Performed By: #### L [id number] #### [facility] [address] [place] [address] MCV (RBC) [Entitic vol] 87.1 fL Normal 82.0-98.0 [facility] Comment on above: Performed By: #### L [id number] #### [facility]) [address] [place] [address] PLATELETS (10*3/UL) IN BLOOD AUTOMATED COUNT 298 10*3/uL Normal 150-400 [facility] Comment on above: Performed By: #### L [id number] #### [facility] [address] [place] [address] RBC (Bld) [#/Vol] 4.66 10*6/uL Normal 3.80-5.00 [facility] Comment on above: Performed By: #### L [id number] #### [facility] [address] [place] [address] WBC (Bld) [#/Vol] 7.80 10*3/uL Normal 4.00-10.60 [facility] Comment on above: Performed By: #### L [id number] #### [facility]) [address] [place] [address] POCT GLUCOSE METER UNSOLICIT ED RESULTSon 05-03-2023 Glucose [Mass/Vol] 87 mg/dL Normal 70-105 [facility] Comment on above: Order Comment: Basel ine aPTT before initiating heparin infusion. Result Comment: [email or web address] Performed By: #### L [id number] #### [facility] [address] [place] [address] Glucose [Mass/Vol] 366 mg/dL High 70-105 [facility] Comment on above: Order Comment: Waive d Testing in the ED is performed under the ED CLIA certificate #[id number]. Result Comment: [facility] [email or web address] Performed By: #### L [id number] #### [facility] ([facility]) [address] [place] [address] Glucose [Mass/Vol] 236 mg/dL High 70-105 [facility] Comment on above: Order Comment: Waive d Testing in the ED is performed under the ED CLIA certificate #[id number]. Result Comment: [email or web address] Performed By: #### L [id number] ####[facility] [place] [address] Glucose [Mass/Vol] 161 mg/dL High 70-105 [facility] Comment on above: Order Comment: Waive d Testing in the ED is performed under the ED CLIA certificate #[id number]. Result Comment: [email or web address] Performed By: #### L [id number] ####[facility])[address] [place] [address] 30on 05-02-2023 30 The patient is Moder [...] urinary retention Outcome: Adequate for Discharge Normal [facility] BASIC METABOLIC PANELon 08- Anion gap [Moles/Vol] 11 mmol/L Normal 7-20 [facility] Comment on above: Performed By: #### L [id number] #### [facility] [address] [place] [address] Calcium [Mass/Vol] 9.3 mg/dL Normal 8.6-10.3 [facility] Comment on above: Performed By: #### L [id number] #### [facility] [address] [place] [address] Chloride [Moles/Vol] 108 mmol/L High 98-107 [facility] Comment on above: Performed By: #### L [id number] #### [facility] [address] [place] [address] CO2 [Moles/Vol] 26 mmol/L Normal 21-31 [facility] Comment on above: Performed By: #### L [id number] #### [facility] [address] [place] [address] Creatinine [Mass/Vol] 0.88 mg/dL Normal 0.60-1.20 [facility] Comment on above: Performed By: #### L [id number] #### [facility]) [address] [place] [address] GLOMERULAR FILTRATION RATE ML/MIN/1.73 SQ M.PREDICTED 72.0 mL/min/1.73m*2 Normal >60.0 [facility] Comment on above: Result Comment: The [facility]???s estimated glomerular filtration rate (eGFR) will no [...] group of individuals. Performed By: #### L [id number] #### [facility]) [address] [place] [address] Glucose [Mass/Vol] 197 mg/dL High 70-100 [facility] Comment on above: Performed By: #### L [id number] #### [facility] [address] [place] [address] Potassium [Moles/Vol] 3.9 mmol/L Normal 3.5-5.1 [facility] Comment on above: Performed By: #### L [id number] #### [facility] [address] [place] [address] Sodium [Moles/Vol] 141 mmol/L Normal 136-145 [facility] Comment on above: Performed By: #### L [id number] #### [facility] [address] [place] [address] Urea nitrogen [Mass/Vol] 24 mg/dL Normal 7-25 [facility] Comment on above: Performed By: #### L [id number] #### [facility]) [address] [place] [address] UREA NITROGEN/CREATININE (MASS RATIO) IN SER/PLAS 27.3 Normal [facility] Comment on above: Performed By: #### L [id number] #### [facility]) [address] [place] [address] MAGNESIUMon 05-02-2023 Magnesium [Mass/Vol] 1.5 mg/dL Low 1.9-2.7 [facility] Comment on above: Performed By: #### L [id number] ####[facility])[address] [place] [address] POCT GLUCOSE METER UNSOLICIT ED RESULTSon 05-02-2023 Glucose [Mass/Vol] 204 mg/dL High 70-105 [facility] Comment on above: Order Comment: Basel ine aPTT before initiating heparin infusion. Result Comment: [email or web address] Performed By: #### L [id number] #### [facility] [address] [place] [address] Glucose [Mass/Vol] 372 mg/dL High 70-105 [facility] Comment on above: Order Comment: Waive d Testing in the ED is performed under the ED CLIA certificate #[id number]. Result Comment: [email or web address] Performed By: #### L [id number] #### [facility] [address] [place] [address] Glucose [Mass/Vol] 338 mg/dL High 70-105 [facility] Comment on above: Order Comment: Waive d Testing in the ED is performed under the ED CLIA certificate #[id number]. Result Comment: [email or web address] Performed By: #### L [id number] #### [facility]) [address] [place] [address] Glucose [Mass/Vol] 144 mg/dL High 70-105 [facility] Comment on above: Order Comment: Waive d Testing in the ED is performed under the ED CLIA certificate #[id number]. Result Comment: [email or web address] [email or web address] Performed By: #### L [id number] #### [facility] [address] [place] [address] 30on 05-01-2023 30 Daily Case Managemen t [...] OT Six Click Score: 15 PT Recommendations: correction facility placement OT Recommendations: correction facility placement New Consults: Consult Orders (From admission, onward) Start Ordered 04/26/23 1357 Inpatient consult to Cardiology Once Specialty: Cardiology Provider: (Not yet assigned) Question Answer Comment Consulting Group CARDIOLOGY TEAM Reason for Consult? 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 Answer: eval 04/27/23 1306 Normal [facility] 30 The patient is Moder ately Stable [...] Absence of urinary retention Outcome: Progressing Normal [facility] BASIC METABOLIC PANELon 08-0 Anion gap [Moles/Vol] 11 mmol/L Normal 7-20 [facility] Comment on above: Performed By: #### L [id number] #### [facility] [address] [place] [address] Calcium [Mass/Vol] 9.1 mg/dL Normal 8.6-10.3 [facility] Comment on above: Performed By: #### L [id number] #### [facility] [address] [place] [address] Chloride [Moles/Vol] 108 mmol/L High 98-107 [facility] Comment on above: Performed By: #### L [id number] #### [facility] [address] [place] [address] CO2 [Moles/Vol] 23 mmol/L Normal 21-31 [facility] Comment on above: Performed By: #### L [id number] #### [facility]) [address] [place] [address] Creatinine [Mass/Vol] 0.76 mg/dL Normal 0.60-1.20 [facility] Comment on above: Performed By: #### L [id number] #### [facility]) [address] [place] [address] GLOMERULAR FILTRATION RATE ML/MIN/1.73 SQ M.PREDICTED 85.8 mL/min/1.73m*2 Normal >60.0 [facility] Comment on above: Result Comment: The [facility]???s estimated glomerular filtration rate (eGFR) will no [...] individuals. Performed By: #### L [id number] #### [facility]) [address] [place] [address] Glucose [Mass/Vol] 204 mg/dL High 70-100 [facility] Comment on above: Performed By: #### L [id number] #### [facility] [address] [place] [address] Potassium [Moles/Vol] 4.1 mmol/L Normal 3.5-5.1 [facility] Comment on above: Performed By: #### L [id number] #### [facility] [address] [place] [address] Sodium [Moles/Vol] 138 mmol/L Normal 136-145 [facility] Comment on above: Performed By: #### L [id number] #### [facility]) [address] [place] [address] Urea nitrogen [Mass/Vol] 26 mg/dL High 7-25 [facility] Comment on above: Performed By: #### L [id number] #### [facility]) [address] [place] [address] UREA NITROGEN/CREATININE (MASS RATIO) IN SER/PLAS 34.2 Normal [facility] Comment on above: Performed By: #### L [id number] #### [facility]) [address] [place] [address] CBCon 05-01-2023 Erythrocyte distribution width (RBC) [Ratio] 13.2 % Normal 11.5-15.0 [facility] Comment on above: Performed By: #### L [id number] ####[facility])[address] [place] [address] ERYTHROCYTE MEAN CORPUSCULAR HEMOGLOBIN CONCENTRATION (G/DL) BY AUTOMATED 33.0 g/dL Normal 32.0-35.0 [facility] Comment on above: Performed By: #### L [id number] ####[facility] [place] [address] Hematocrit (Bld) [Volume fraction] 39.4 % Normal 36.0-48.0 [facility] Comment on above: Performed By: #### L [id number] ####[facility])[address] [place] [address] Hemoglobin (Bld) [Mass/Vol] 13.0 g/dL Normal 12.0-15.0 [facility] Comment on above: Performed By: #### L [id number] ####[facility] [place] [address] MCH (RBC) [Entitic mass] 28.0 pg Normal 27.0-33.0 [facility] Comment on above: Performed By: #### L [id number] ####[facility])[address] [place] [address] MCV (RBC) [Entitic vol] 84.9 fL Normal 82.0-98.0 [facility] Comment on above: Performed By: #### L [id number] ####[facility])[address] [place] [address] PLATELETS (10*3/UL) IN BLOOD AUTOMATED COUNT 341 10*3/uL Normal 150-400 [facility] Comment on above: Performed By: #### L [id number] ####[facility])[address] [place] [address] RBC (Bld) [#/Vol] 4.64 10*6/uL Normal 3.80-5.00 [facility] Comment on above: Performed By: #### L [id number] ####[facility] [place] [address] WBC (Bld) [#/Vol] 7.98 10*3/uL Normal 4.00-10.60 [facility] Comment on above: Performed By: #### L [id number] ####[facility] ([facility])[address] [place] [address] HPon 05-01-2023 HP ------ -- Attestation signed by Gaby Sanchez MD at 05/01/2023 3:08 PM Due to worsening in the patient's mental status, the cardiac catheterization will be deferred at this juncture. Decisions regarding timing will need to be made on a day-to-day basis. Gaby Sanchez MD, MPH, [facility], [facility], [facility] Interventional Cardiology Pager Email: [email or web address] -- H&P reviewed. The patient was examined and there are no changes to the H&P. Patient with NSTEMI vs Type II [place] and new reduction of EF (45% to 30%). Peak troponin 2.4. Plan for coronary angiography today. Normal [facility] MAGNESIUMon 05-01-2023 Magnesium [Mass/Vol] 1.3 mg/dL Low 1.9-2.7 [facility] Comment on above: Performed By: #### L [id number] #### [facility]) [address] [place] [address] NURSNOTEon 05-01-2023 NURSNOTE Patient had pulled h er IV out, service writer advisor called the PICC-nurse to start a new one and patient tried to hit the PICC nurse and refused to get the IV. Dr. Quan is aware that patient is without an IV. [facility] NURSNOTE Patient has become m ore agitated and non-compliant with telemetry monitoring. She tried to hit the service writer advisor and leave the room. Security was called and they helped the patient back to bed and safety. Dr. Quan is notified and he is okay with patient not being monitored. [facility] is notified as well. [facility] POCT GLUCOSE METER UNSOLICIT ED RESULTSon 05-01-2023 Glucose [Mass/Vol] 241 mg/dL High 70-105 [facility] Comment on above: Order Comment: Waive d Testing in the ED is performed under the ED CLIA certificate #[id number]. Result Comment: atru ss Performed By: #### L [id number] #### [facility]) [address] [place] [address] Glucose [Mass/Vol] 174 mg/dL High 70-105 [facility] Comment on above: Order Comment: Waive d Testing in the ED is performed under the ED CLIA certificate #[id number]. Result Comment: [email or web address] esn Performed By: #### L [id number] #### [facility]) [address] [place] [address] Glucose [Mass/Vol] 211 mg/dL High 70-105 [facility] Comment on above: Order Comment: Waive d Testing in the ED is performed under the ED CLIA certificate #[id number]. Result Comment: [facility] [email or web address] Performed By: #### L [id number] #### [facility]) [address] [place] [address] 30on 04-30-2023 30 Daily Case Managemen t Update Multidisciplinary rounds have been completed. Barriers to Discharge: per notes-confused at her baseline but less agitated. CT brain at O[facility] showed no acute event. UA showed no UTI. Psych is following. pt/ot recommending snf. SW to get acceptance and start precert Diet: Dietary Orders (From admission, onward) Start Ordered 04/29/23 175 Dysphagia III Soft Diet Heart Healthy/HTN, CABG,Stroke, [...] OT Six Click Score: 6 PT Recommendations: correction facility placement OT Recommendations: correction facility placement New Consults: Consult Orders (From admission, onward) Start Ordered 04/26/23 1357 Inpatient consult to Cardiology Once Specialty: Cardiology Provider: (Not yet assigned) Question Answer Comment Consulting Group CARDIOLOGY TEAM Reason for Consult? 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 Answer: eval 04/27/23 1306 [facility] 30 The patient is Moder ately [...] Absence of urinary retention Outcome: Progressing Normal [facility] 30 The patient is Moder ately Stable [...] and oxygenation Outcome: Adequate for Discharge Normal [facility] BASIC METABOLIC PANELon 08-0 Anion gap [Moles/Vol] 11 mmol/L Normal 7-20 [facility] Comment on above: Performed By: #### L [id number] #### [facility] [address] [place] [address] Calcium [Mass/Vol] 9.3 mg/dL Normal 8.6-10.3 [facility] Comment on above: Performed By: #### L [id number] #### [facility] [address] [place] [address] Chloride [Moles/Vol] 108 mmol/L High 98-107 [facility] Comment on above: Performed By: #### L [id number] #### [facility] [address] [place] [address] CO2 [Moles/Vol] 29 mmol/L Normal 21-31 [facility] Comment on above: Performed By: #### L [id number] #### [facility] [address] [place] [address] Creatinine [Mass/Vol] 0.82 mg/dL Normal 0.60-1.20 [facility] Comment on above: Performed By: #### L [id number] #### [facility] [address] [place] [address] GLOMERULAR FILTRATION RATE ML/MIN/1.73 SQ M.PREDICTED 78.4 mL/min/1.73m*2 Normal >60.0 [facility] Comment on above: Result Comment: The [facility]???s estimated glomerular filtration rate (eGFR) will no [...] group of individuals. Performed By: #### L [id number] #### [facility]) [address] [place] [address] Glucose [Mass/Vol] 165 mg/dL High 70-100 [facility] Comment on above: Performed By: #### L [id number] #### [facility]) [address] [place] [address] Potassium [Moles/Vol] 3.7 mmol/L Normal 3.5-5.1 [facility] Comment on above: Performed By: #### L [id number] #### [facility] [address] [place] [address] Sodium [Moles/Vol] 144 mmol/L Normal 136-145 [facility] Comment on above: Performed By: #### L [id number] #### [facility]) [address] [place] [address] Urea nitrogen [Mass/Vol] 22 mg/dL Normal 7-25 [facility] Comment on above: Performed By: #### L [id number] #### [facility]) [address] [place] [address] UREA NITROGEN/CREATININE (MASS RATIO) IN SER/PLAS 26.8 Normal [facility] Comment on above: Performed By: #### L [id number] #### [facility]) [address] [place] [place] [address] MAGNESIUMon 04-30-2023 Magnesium [Mass/Vol] 1.5 mg/dL Low 1.9-2.7 [facility] Comment on above: Performed By: #### L [id number] #### [facility]) [address] [place] [address] POCT GLUCOSE METER UNSOLICIT ED RESULTSon 04-30-2023 Glucose [Mass/Vol] 202 mg/dL High 70-105 [facility] Comment on above: Order Comment: Waive d Testing in the ED is performed under the ED CLIA certificate #[id number]. Result Comment: [email or web address] Performed By: #### L [id number] #### [facility] ([facility]) [address] [place] [address] Glucose [Mass/Vol] 379 mg/dL High 70-105 [facility] Comment on above: Order Comment: Waive d Testing in the ED is performed under the ED CLIA certificate #[id number]. Result Comment: [facility] [email or web address] Performed By: #### L [id number] ####[facility] ([facility])[address] [place] [address] Glucose [Mass/Vol] 150 mg/dL High 70-105 [facility] Comment on above: Order Comment: Waive d Testing in the ED is performed under the ED CLIA certificate #[id number]. Result Comment: [facility] [email or web address] Performed By: #### L [id number] #### [facility]) [address] [place] [address] Glucose [Mass/Vol] 156 mg/dL High 70-105 [facility] Comment on above: Order Comment: Waive d Testing in the ED is performed under the ED CLIA certificate #[id number]. Result Comment: [email or web address] Performed By: #### L [id number] #### [facility] [address] [place] [address] 30on 04-29-2023 30 Daily Case Managemen t [...] OT Six Click Score: 6 PT Recommendations: correction facility placement OT Recommendations: correction facility placement New Consults: Consult Orders (From [...] for Consult? 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 Answer: eval 04/27/23 1306 [facility] 30 Problem: Pain - Adul t Goal: [...] and behaviors that affect risk of falls [place] fall precautions as indicated by assessment Educate [...] and behaviors that affect risk of falls [place] fall precautions as indicated by assessment Educate [...] to preven (more content not included)... Normal [facility] BASIC METABOLIC PANELon 08-0 Anion gap [Moles/Vol] 15 mmol/L Normal 7-20 [facility] Comment on above: Performed By: #### L [id number] #### [facility] [address] [place] [address] Calcium [Mass/Vol] 9.1 mg/dL Normal 8.6-10.3 [facility] Comment on above: Performed By: #### L [id number] #### [facility] [address] [place] [address] Chloride [Moles/Vol] 106 mmol/L Normal 98-107 [facility] Comment on above: Performed By: #### L [id number] #### [facility]) [address] [place] [address] CO2 [Moles/Vol] 22 mmol/L Normal 21-31 [facility] Comment on above: Performed By: #### L [id number] #### [facility]) [address] [place] [address] Creatinine [Mass/Vol] 0.74 mg/dL Normal 0.60-1.20 [facility] Comment on above: Performed By: #### L [id number] #### [facility]) [address] [place] [address] GLOMERULAR FILTRATION RATE ML/MIN/1.73 SQ M.PREDICTED 88.6 mL/min/1.73m*2 Normal >60.0 [facility] Comment on above: Result Comment: The [facility]???s estimated glomerular filtration rate (eGFR) will no [...] group of individuals. Performed By: #### L [id number] #### [facility]) [address] [place] [address] Glucose [Mass/Vol] 223 mg/dL High 70-100 [facility] Comment on above: Performed By: #### L [id number] #### [facility]) [address] [place] [address] Potassium [Moles/Vol] 3.8 mmol/L Normal 3.5-5.1 [facility] Comment on above: Performed By: #### L [id number] #### [facility]) [address] [place] [address] Sodium [Moles/Vol] 139 mmol/L Normal 136-145 [facility] Comment on above: Performed By: #### L [id number] #### [facility]) [address] [place] [address] Urea nitrogen [Mass/Vol] 20 mg/dL Normal 7-25 [facility] Comment on above: Performed By: #### L [id number] #### [facility]) [address] [place] [address] UREA NITROGEN/CREATININE (MASS RATIO) IN SER/PLAS 27.0 Normal [facility] Comment on above: Performed By: #### L [id number] #### [facility] [address] [place] [address] CBCon 04-29-2023 Erythrocyte distribution width (RBC) [Ratio] 13.2 % Normal 11.5-15.0 [facility] Comment on above: Performed By: #### L [id number] #### [facility]) [address] [place] [address] ERYTHROCYTE MEAN CORPUSCULAR HEMOGLOBIN CONCENTRATION (G/DL) BY AUTOMATED 34.3 g/dL Normal 32.0-35.0 [facility] Comment on above: Performed By: #### L [id number] #### [facility]) [address] [place] [address] Hematocrit (Bld) [Volume fraction] 38.2 % Normal 36.0-48.0 [facility] Comment on above: Performed By: #### L [id number] #### [facility] [address] [place] [address] Hemoglobin (Bld) [Mass/Vol] 13.1 g/dL Normal 12.0-15.0 [facility] Comment on above: Performed By: #### L [id number] #### [facility] [address] [facility] [place] [address] MCH (RBC) [Entitic mass] 28.5 pg Normal 27.0-33.0 [facility] Comment on above: Performed By: #### L [id number] #### [facility] [address] [place] [address] MCV (RBC) [Entitic vol] 83.2 fL Normal 82.0-98.0 [facility] Comment on above: Performed By: #### L [id number] #### [facility] ([facility]) [address] [place] [address] PLATELETS (10*3/UL) IN BLOOD AUTOMATED COUNT 305 10*3/uL Normal 150-400 [facility] Comment on above: Performed By: #### L [id number] #### [facility] [address] [place] [address] RBC (Bld) [#/Vol] 4.59 10*6/uL Normal 3.80-5.00 [facility] Comment on above: Performed By: #### L [id number] #### [facility] [address] [place] [address] WBC (Bld) [#/Vol] 7.42 10*3/uL Normal 4.00-10.60 [facility] Comment on above: Performed By: #### L [id number] #### [facility] [address] [place] [address] CONSULTon 04-29-2023 CONSULT ------ -- Attestation signed by Luis Alvarez DO at 05/01/2023 1:00 PM Agree with above, provisional diagnosis is delirium secondary to medical condition. -- PSYCHIATRIC INITIAL HISTORY AND PHYSICAL/CONSULT NOTE Kiara Blanc is a 68 y.o. female who presented on 04/26/2023 to [facility] from [facility] for acute NSTEMI. Psychiatry was consulted on 04/29/2023 for dementia and delirium. Legal guardian/Decision maker: Per patient, self. No assigned POA. Subjective: History of Present Illness: Patient is a 68-year-old female with an unknown psychiatric history and medical history of CAD, HLD, CAD, chronic diastolic HF w/ NYHA Class II, diabetes mellitus presented to [facility] as a direct transfer for cardiology service evaluation for acute NSTEMI. She was admitted initially at [facility]) on 04/25/2023 after she was found [...] over 1000. She was subsequently transferred to [facility] for cardiac evaluation. She was started on [...] talk to , Mr. Cameron Blanc (ph: [phone]) at the patient's bedside. He called EMS [...] multiple hospitaliz (more content not included)... Normal [facility] HEPARIN LEVELon 04-29-2023 HEPARIN UNFRACTIONATED (U/ML) IN PPP BY CHROMOGENIC METHOD 0.26 IU/mL Low 0.3-0.7 [facility] Comment on above: Result Comment: [place] roxaban and Apixaban will interfere with the anti Xa assay used to monitor UFH and LMWH. Performed By: #### L [id number] ####[facility] ([facility])[address] [place] [address] MAGNESIUMon 04-29-2023 Magnesium [Mass/Vol] 1.6 mg/dL Low 1.9-2.7 [facility] Comment on above: Performed By: #### L [id number] #### [facility]) [address] [facility] [address] NURSNOTEon 04-29-2023 NURSNOTE Pt at [facility] visiting. Informed of most recent poc for his at this time. Informed Dr Talley and psychiatry of being present at bedside in order for them to involve in pt care. Psych states will come speak to . Normal [facility] POCT GLUCOSE METER UNSOLICIT ED RESULTSon 04-29-2023 Glucose [Mass/Vol] 209 mg/dL High 70-105 [facility] Comment on above: Order Comment: Waive d Testing in the ED is performed under the ED CLIA certificate #[id number]. Result Comment: [email or web address] Performed By: #### L [id number] ####[facility] ([facility])[address] [place] [address] Glucose [Mass/Vol] 210 mg/dL High 70-105 [facility] Comment on above: Order Comment: Waive d Testing in the ED is performed under the ED CLIA certificate #[id number]. Result Comment: [email or web address] [email or web address] Performed By: #### L [id number] ####[facility] ([facility])[address] [place] [address] Glucose [Mass/Vol] 210 mg/dL High 70-105 [facility] Comment on above: Order Comment: Waive d Testing in the ED is performed under the ED CLIA certificate #[id number]. Result Comment: [email or web address] [email or web address] Performed By: #### L [id number] ####[facility] [place] [address] Glucose [Mass/Vol] 184 mg/dL High 70-105 [facility] Comment on above: Order Comment: Waive d Testing in the ED is performed under the ED CLIA certificate #[id number]. Result Comment: [email or web address] [email or web address] Performed By: #### L [id number] #### [facility]) [address] [place] [address] TSH3 REFLEX TO FT4on 023 THYROTROPIN (MIU/L) IN SER/PLAS BY DETECTION LIMIT <= 0.05 MIU/L 1.24 mIU/L Normal 0.34-5.60 [facility] Comment on above: Performed By: #### L [id number] #### [facility]) [address] [place] [address] URINALYSIS MICROSCOPIC WITH REFLEX CULTUREon 04-29-2023 CASTS IN URINE Normal [facility] Comment on above: Performed By: #### L [id number] #### [facility]) [address] [place] [address] CRYSTALS IN URINE Normal [facility] Comment on above: Performed By: #### L [id number] #### [facility] [address] [place] [address] OTHER MICROSCOPIC ELEMENTS Normal [facility] Comment on above: Performed By: #### L [id number] #### [facility]) [address] [place] [address] RBC (#/HPF) IN URINE SEDIMENT None Seen Normal None Seen [facility] Comment on above: Performed By: #### L [id number] #### [facility]) [address] [place] [address] SQUAMOUS EPITHELIAL CELLS (#/HPF) IN URINE SEDIMENT Few Abnormal None Seen, Occasional [facility] Comment on above: Performed By: #### L [id number] #### [facility]) [address] [place] [address] WBC (LEUKOCYTE) (#/HPF) IN URINE SEDIMENT 3-5 Abnormal None Seen [facility] Comment on above: Performed By: #### L [id number] #### [facility]) [address] [place] [address] YEAST, BUDDING (#/HPF) IN URINE Many Abnormal None Seen [facility] Comment on above: Performed By: #### L [id number] #### [facility]) [address] [place] [address] URINALYSIS WITH REFLEX CULTU REon 04-29-2023 BILIRUBIN, TOTAL PRESENCE IN URINE Negative Normal Negative [facility] Comment on above: Performed By: #### L [id number] #### [facility] [address] [place] [address] Clarity (U) Clear Normal Clear [facility] Comment on above: Performed By: #### L [id number] #### [facility] [address] [place] [address] Color (U) Yellow Normal Yellow [facility] Comment on above: Performed By: #### L [id number] #### [facility] [address] [place] [address] Glucose (U) [Mass/Vol] mg/dL Abnormal [facility] on above: Performed By: #### L [id number] #### [facility]) [address] [place] [address] HEMOGLOBIN PRESENCE IN URINE Moderate Abnormal Negative [facility] Comment on above: Performed By: #### L [id number] #### [facility] [address] [place] [address] Ketones Ql (U) Trace Abnormal Negative [facility] Comment on above: Performed By: #### L [id number] #### [facility]) [address] [place] [address] LEUKOCYTE ESTERASE PRESENCE IN URINE BY TEST STRIP Negative Normal Negative [facility] Comment on above: Performed By: #### L [id number] #### [facility] [address] [place] [address] NITRITE PRESENCE IN URINE Negative Normal Negative [facility] Comment on above: Performed By: #### L [id number] #### [facility] [address] [place] [address] pH (U) 5.0 [pH] Normal 5.0-8.0 [facility] Comment on above: Performed By: #### L [id number] #### [facility]) [address] [place] [address] Protein (U) [Mass/Vol] 30 mg/dL Abnormal Negative [facility] Comment on above: Performed By: #### L [id number] #### [facility] [address] [place] [address] Specific gravity (U) [Rel density] 1.028 High 1.015-1.020 [facility] Comment on above: Performed By: #### L [id number] #### [facility] [address] [place] [address] VITAMIN B12on 04-29-2023 Cobalamin (Vitamin B12) [Mass/Vol] 512 pg/mL Normal 180-914 [facility] Comment on above: Result Comment: REFE RENCE RANGES: 180-914 pg/mL Normal 145-179 pg/mL Indeterminate <145 pg/mL Deficient Performed By: #### L [id number] #### [facility] [address] [place] [address] 30on 04-28-2023 30 The patient is Moder [...] to discharge with patient and caregiver Normal [facility] BASIC METABOLIC PANELon 08-0 Anion gap [Moles/Vol] 12 mmol/L Normal 7-20 [facility] Comment on above: Performed By: #### L [id number] #### [facility]) [address] [place] [address] Calcium [Mass/Vol] 9.2 mg/dL Normal 8.6-10.3 [facility] Comment on above: Performed By: #### L [id number] #### [facility]) [address] [place] [address] Chloride [Moles/Vol] 106 mmol/L Normal 98-107 [facility] Comment on above: Performed By: #### L [id number] #### [facility]) [address] [place] [address] CO2 [Moles/Vol] 25 mmol/L Normal 21-31 [facility] Comment on above: Performed By: #### L [id number] #### [facility]) [address] [place] [address] Creatinine [Mass/Vol] 0.64 mg/dL Normal 0.60-1.20 [facility] Comment on above: Performed By: #### L [id number] #### [facility] ([facility]) [address] [place] [address] GLOMERULAR FILTRATION RATE ML/MIN/1.73 SQ M.PREDICTED 96.8 mL/min/1.73m*2 Normal >60.0 [facility] Comment on above: Result Comment: The [facility]???s estimated glomerular filtration rate (eGFR) will no [...] individuals. Performed By: #### L [id number] #### [facility] [address] [place] [address] Glucose [Mass/Vol] 163 mg/dL High 70-100 [facility] Comment on above: Performed By: #### L [id number] #### [facility] [address] [place] [address] Potassium [Moles/Vol] 3.8 mmol/L Normal 3.5-5.1 [facility] Comment on above: Performed By: #### L [id number] #### [facility] [address] [place] [address] Sodium [Moles/Vol] 139 mmol/L Normal 136-145 [facility] Comment on above: Performed By: #### L [id number] #### [facility] [address] [facility] [place] [address] Urea nitrogen [Mass/Vol] 14 mg/dL Normal 7-25 [facility] Comment on above: Performed By: #### L [id number] #### [facility] [address] [facility] [place] [address] UREA NITROGEN/CREATININE (MASS RATIO) IN SER/PLAS 21.9 Normal [facility] Comment on above: Performed By: #### L [id number] #### [facility]) [address] [place] [address] CBCon 04-28-2023 Erythrocyte distribution width (RBC) [Ratio] 13.4 % Normal 11.5-15.0 [facility] Comment on above: Performed By: #### L [id number] #### [facility]) [address] [place] [address] ERYTHROCYTE MEAN CORPUSCULAR HEMOGLOBIN CONCENTRATION (G/DL) BY AUTOMATED 34.0 g/dL Normal 32.0-35.0 [facility] Comment on above: Performed By: #### L [id number] #### [facility] [address] [place] [address] Hematocrit (Bld) [Volume fraction] 37.1 % Normal 36.0-48.0 [facility] Comment on above: Performed By: #### L [id number] #### [facility] [address] [place] [address] Hemoglobin (Bld) [Mass/Vol] 12.6 g/dL Normal 12.0-15.0 [facility] Comment on above: Performed By: #### L [id number] #### [facility]) [address] [place] [address] MCH (RBC) [Entitic mass] 28.2 pg Normal 27.0-33.0 [facility] Comment on above: Performed By: #### L [id number] #### [facility]) [address] [place] [address] MCV (RBC) [Entitic vol] 83.0 fL Normal 82.0-98.0 [facility] Comment on above: Performed By: #### L [id number] #### [facility]) [address] [place] [address] PLATELETS (10*3/UL) IN BLOOD AUTOMATED COUNT 313 10*3/uL Normal 150-400 [facility] Comment on above: Performed By: #### L [id number] #### [facility] [address] [place] [address] RBC (Bld) [#/Vol] 4.47 10*6/uL Normal 3.80-5.00 [facility] Comment on above: Performed By: #### L [id number] #### [facility] [address] [place] [address] WBC (Bld) [#/Vol] 8.52 10*3/uL Normal 4.00-10.60 [facility] Comment on above: Performed By: #### L [id number] #### [facility] [address] [place] [address] HEPARIN LEVELon 04-28-2023 HEPARIN UNFRACTIONATED (U/ML) IN PPP BY CHROMOGENIC METHOD 0.30 IU/mL Normal 0.3-0.7 [facility] Comment on above: Result Comment: [place] roxaban and Apixaban will interfere with the anti Xa assay used to monitor UFH and LMWH. Performed By: #### L [id number] #### [facility] [address] [place] [address] HEPARIN UNFRACTIONATED (U/ML) IN PPP BY CHROMOGENIC METHOD 0.43 IU/mL Normal 0.3-0.7 [facility] Comment on above: Result Comment: [place] roxaban and Apixaban will interfere with the anti Xa assay used to monitor UFH and LMWH. Performed By: #### L [id number] ####[facility] ([facility])[address] [place] [address] MAGNESIUMon 04-28-2023 Magnesium [Mass/Vol] 1.2 mg/dL Low 1.9-2.7 [facility] Comment on above: Performed By: #### L [id number] #### [facility] [address] [place] [address] NURSNOTEon 04-28-2023 NURSNOTE Pt Hr reaching betwe en 100-115, cardio fellow made aware as well as primary. Normal [facility] NURSNOTE Primary made aware o f 1.2 mag, loss of IV access again, picc paged. Normal [facility] NURSNOTE IV access lost, prim geoffrey made aware, picc paged. Normal [facility] POCT GLUCOSE METER UNSOLICIT ED RESULTSon 04-28-2023 Glucose [Mass/Vol] 205 mg/dL High 70-105 [facility] Comment on above: Order Comment: Waive d Testing in the ED is performed under the ED CLIA certificate #[id number]. Result Comment: atru ss Performed By: #### L [id number] #### [facility] [address] [place] [address] Glucose [Mass/Vol] 223 mg/dL High 70-105 [facility] Comment on above: Order Comment: Waive d Testing in the ED is performed under the ED CLIA certificate #[id number]. Result Comment: [email or web address] Performed By: #### L [id number] ####[facility] [place] [address] Glucose [Mass/Vol] 185 mg/dL High 70-105 [facility] Comment on above: Order Comment: Waive d Testing in the ED is performed under the ED CLIA certificate #[id number]. Result Comment: [email or web address] Performed By: #### L [id number] #### [facility] [address] [place] [address] Glucose [Mass/Vol] 146 mg/dL High 70-105 [facility] Comment on above: Order Comment: Waive d Testing in the ED is performed under the ED CLIA certificate #[id number]. Result Comment: [email or web address] Performed By: #### L [id number] #### [facility] [address] [place] [address] 30on 04-27-2023 30 The patient is Moder [...] Assess for changes in respiratory status Normal [facility] B-TYPE NATRIURETIC PEPTIDEon 04-27-2023 Natriuretic peptide B (Bld) [Mass/Vol] 299 pg/mL High 0-100 [facility] Comment on above: Performed By: #### L [id number] #### [facility] [facility] [address] [place] [address] BASIC METABOLIC PANELon Anion gap [Moles/Vol] 7 mmol/L Normal 7-20 [facility] Comment on above: Performed By: #### L [id number] #### [facility] ([facility]) [address] [place] [address] Calcium [Mass/Vol] 7.9 mg/dL Low 8.6-10.3 [facility] Comment on above: Performed By: #### L [id number] #### [facility] ([facility]) [address] [place] [address] Chloride [Moles/Vol] 111 mmol/L High 98-107 [facility] Comment on above: Performed By: #### L [id number] #### [facility] [address] [place] [address] CO2 [Moles/Vol] 25 mmol/L Normal 21-31 [facility] Comment on above: Performed By: #### L [id number] #### [facility] [address] [place] [address] Creatinine [Mass/Vol] 0.63 mg/dL Normal 0.60-1.20 [facility] Comment on above: Performed By: #### L [id number] #### [facility] ([facility]) [address] [place] [address] GLOMERULAR FILTRATION RATE ML/MIN/1.73 SQ M.PREDICTED 97.2 mL/min/1.73m*2 Normal >60.0 [facility] Comment on above: Result Comment: The [facility]???s estimated glomerular filtration rate (eGFR) will no [...] group of individuals. Performed By: #### L [id number] #### [facility] ([facility]) [address] [place] [address] Glucose [Mass/Vol] 134 mg/dL High 70-100 [facility] Comment on above: Performed By: #### L [id number] #### [facility] ([facility]) [address] [place] [address] Potassium [Moles/Vol] 3.4 mmol/L Low 3.5-5.1 [facility] Comment on above: Performed By: #### L [id number] #### [facility] ([facility]) [address] [place] [address] Sodium [Moles/Vol] 140 mmol/L Normal 136-145 [facility] Comment on above: Performed By: #### L [id number] #### [facility] ([facility]) [address] [place] [address] Urea nitrogen [Mass/Vol] 9 mg/dL Normal 7-25 [facility] Comment on above: Performed By: #### L [id number] #### [facility] ([facility]) [address] [place] [address] UREA NITROGEN/CREATININE (MASS RATIO) IN SER/PLAS 14.3 Normal [facility] Comment on above: Performed By: #### L [id number] #### [facility] ([facility]) [address] [place] [address] CBCon 04-27-2023 Erythrocyte distribution width (RBC) [Ratio] 13.4 % Normal 11.5-15.0 [facility] Comment on above: Performed By: #### L [id number] ####[facility] ([facility])[address] [place] [address] ERYTHROCYTE MEAN CORPUSCULAR HEMOGLOBIN CONCENTRATION (G/DL) BY AUTOMATED 33.1 g/dL Normal 32.0-35.0 [facility] Comment on above: Performed By: #### L [id number] ####[facility] [address] Hematocrit (Bld) [Volume fraction] 35.3 % Low 36.0-48.0 [facility] Comment on above: Performed By: #### L [id number] ####[facility] ([facility])[address] [address] Hemoglobin (Bld) [Mass/Vol] 11.7 g/dL Low 12.0-15.0 [facility] Comment on above: Performed By: #### L [id number] ####[facility] ([facility])[address] [place] [address] MCH (RBC) [Entitic mass] 28.3 pg Normal 27.0-33.0 [facility] Comment on above: Performed By: #### L [id number] ####[facility] ([facility])[address] [address] MCV (RBC) [Entitic vol] 85.3 fL Normal 82.0-98.0 [facility] Comment on above: Performed By: #### L [id number] ####[facility] ([facility])[address] [place] [address] PLATELETS (10*3/UL) IN BLOOD AUTOMATED COUNT 296 10*3/uL Normal 150-400 [facility] Comment on above: Performed By: #### L [id number] ####[facility] [address] RBC (Bld) [#/Vol] 4.14 10*6/uL Normal 3.80-5.00 [facility] Comment on above: Performed By: #### L [id number] ####[facility] ([facility])[address] [place] [address] WBC (Bld) [#/Vol] 7.50 10*3/uL Normal 4.00-10.60 [facility] Comment on above: Performed By: #### L [id number] ####[facility] ([facility])[address] [place] [address] HEPARIN LEVELon 04-27-2023 HEPARIN UNFRACTIONATED (U/ML) IN PPP BY CHROMOGENIC METHOD 0.50 IU/mL Normal 0.3-0.7 [facility] Comment on above: Result Comment: [place] roxaban and Apixaban will interfere with the anti Xa assay used to monitor UFH and LMWH. Performed By: #### L [id number] ####[facility] ([facility])[address] [place] [address] HEPARIN UNFRACTIONATED (U/ML) IN PPP BY CHROMOGENIC METHOD 0.81 IU/mL High 0.3-0.7 [facility] Comment on above: Result Comment: [place] roxaban and Apixaban will interfere with the anti Xa assay used to monitor UFH and LMWH. Performed By: #### L [id number] #### [facility] ([facility]) [address] [place] [address] HEPARIN UNFRACTIONATED (U/ML) IN PPP BY CHROMOGENIC METHOD 0.81 IU/mL High 0.3-0.7 [facility] Comment on above: Order Comment: Waive d Testing in the ED is performed under the ED CLIA certificate #[id number]. Result Comment: [place] roxaban and Apixaban will interfere with the anti Xa assay used to monitor UFH and LMWH. Performed By: #### L [id number] #### [facility] ([facility]) [address] [place] [address] HEPARIN UNFRACTIONATED (U/ML) IN PPP BY CHROMOGENIC METHOD 0.56 IU/mL Normal 0.3-0.7 [facility] Comment on above: Order Comment: Waive d Testing in the ED is performed under the ED CLIA certificate #[id number]. Result Comment: [place] roxaban and Apixaban will interfere with the anti Xa assay used to monitor UFH and LMWH. Performed By: #### L [id number] #### [facility] ([facility]) [address] [place] [address] MAGNESIUMon 04-27-2023 Magnesium [Mass/Vol] 1.3 mg/dL Low 1.9-2.7 [facility] Comment on above: Performed By: #### L [id number] #### [facility] [address] [place] [address] NURSNOTEon 04-27-2023 NURSNOTE Nurse informed pili davis work In regards to APS being called on pt prior to admission to [facility]. Social currently looking into it for any need for plan or action. [facility] NURSNOTE Nurse informed pili davis work In regards to APS being called on pt prior to admission to [facility]. Social currently looking into it for any need for plan or action. Normal [facility] NURSNOTE Call to lab regardin g Heparin level drawn at 2346. Per lab, sample currently spinning and will have results in approximately 15 minutes. [facility] NURSNOTE Lab called regarding missing Heparin level ordered for 2100. Per lab, will send drier attendant to draw now. [facility] POCT GLUCOSE METER UNSOLICIT ED RESULTSon 04-27-2023 Glucose [Mass/Vol] 174 mg/dL High 70-105 [facility] Comment on above: Order Comment: Waive d Testing in the ED is performed under the ED CLIA certificate #[id number]. Result Comment: [email or web address] Performed By: #### L [id number] #### [facility] [address] [place] [address] Glucose [Mass/Vol] 235 mg/dL High 70-105 [facility] Comment on above: Order Comment: Waive d Testing in the ED is performed under the ED CLIA certificate #[id number]. Result Comment: [email or web address] [email or web address] Performed By: #### L [id number] ####[facility] ([facility])[address] [place] [address] Glucose [Mass/Vol] 134 mg/dL High 70-105 [facility] Comment on above: Order Comment: Waive d Testing in the ED is performed under the ED CLIA certificate #[id number]. Result Comment: [email or web address] [email or web address] Performed By: #### L [id number] ####[facility] ([facility])[address] [place] [address] Glucose [Mass/Vol] 129 mg/dL High 70-105 [facility] Comment on above: Order Comment: Waive d Testing in the ED is performed under the ED CLIA certificate #[id number]. Result Comment: [email or web address] Performed By: #### L [id number] ####[facility] ([facility])[address] [place] [address] Glucose [Mass/Vol] 175 mg/dL High 70-105 [facility] Comment on above: Order Comment: Waive d Testing in the ED is performed under the ED CLIA certificate #[id number]. Result Comment: [email or web address] [email or web address] Performed By: #### L [id number] ####[facility] ([facility])[address] [place] [address] TROPONIN Ion 04-27-2023 Troponin I.cardiac [Mass/Vol] 1.17 ng/mL Critically high 0.00-0.04 [facility] Comment on above: Result Comment: Prev ious result verified on 04/27/2023 0213 on specimen/case [id number] called with component Troponin I for procedure Troponin I with value 1.59 ng/mL. Performed By: #### L [id number] #### [facility] ([facility]) [address] [place] [address] Troponin I.cardiac [Mass/Vol] 1.59 ng/mL Critically high 0.00-0.04 [facility] Comment on above: Result Comment: Prev ious result verified on 04/26/2023 1845 on specimen/case [id number] called with component Troponin I for procedure Troponin I with value 2.45 ng/mL. Performed By: #### L [id number] #### [facility] ([facility]) [address] [place] [address] 30on 04-26-2023 30 Problem: Pain - Adul [...] for the shift include monitor labs/vitals Normal [facility] APTTon 04-26-2023 ACTIVATED PARTIAL THROMBOPLASTIN TIME IN PPP BY COAGULATION ASSAY 65.1 Seconds High 25.0-35.0 [facility] Comment on above: Order Comment: Basel ine aPTT before initiating heparin infusion. Result Comment: Clin ical significance of the APTT is questionable in the presence of heparin. Performed By: #### L [id number] #### [facility] ([facility]) [address] [place] [address] BILIRUBIN, DIRECTon 04-26-20 Magnesium [Mass/Vol] 0.1 mg/dL Normal 0-0.2 [facility] Comment on above: Performed By: #### L [id number] #### [facility] ([facility]) [address] [place] [address] CBC WITH AUTO DIFFERENTIALon 04-26-2023 Basophils (Bld) [#/Vol] 0.04 10*3/uL Normal 0.00-0.20 [facility] Comment on above: Performed By: #### L [id number] #### [facility] ([facility]) [address] [place] [address] Basophils/100 WBC (Bld) 0.6 % Normal 0.0-1.0 [facility] Comment on above: Performed By: #### L [id number] #### [facility] ([facility]) [address] [place] [address] Eosinophils (Bld) [#/Vol] 0.24 10*3/uL Normal 0.00-0.50 [facility] Comment on above: Performed By: #### L [id number] #### [facility] ([facility]) [address] [place] [address] Eosinophils/100 WBC (Bld) 3.3 % Normal 0.0-6.0 [facility] Comment on above: Performed By: #### L [id number] #### [facility] ([facility]) [address] [place] [address] Erythrocyte distribution width (RBC) [Ratio] 13.7 % Normal 11.5-15.0 [facility] Comment on above: Performed By: #### L [id number] #### [facility] [address] [place] [address] ERYTHROCYTE MEAN CORPUSCULAR HEMOGLOBIN CONCENTRATION (G/DL) BY AUTOMATED 33.7 g/dL Normal 32.0-35.0 [facility] Comment on above: Performed By: #### L [id number] #### [facility] ([facility]) [address] [place] [address] Hematocrit (Bld) [Volume fraction] 35.6 % Low 36.0-48.0 [facility] Comment on above: Performed By: #### L [id number] #### [facility] ([facility]) [address] [place] [address] Hemoglobin (Bld) [Mass/Vol] 12.0 g/dL Normal 12.0-15.0 [facility] Comment on above: Performed By: #### L [id number] #### [facility] ([facility]) [address] [place] [address] Immature granulocytes (Bld) [#/Vol] 0.07 10*3/uL Normal 0.00-0.20 [facility] Comment on above: Performed By: #### L [id number] #### [facility] ([facility]) [address] [place] [address] Immature granulocytes/100 WBC (Bld) 1.0 % Normal 0.0-1.0 [facility] Comment on above: Performed By: #### L [id number] #### [facility] [address] [place] [address] Lymphocytes (Bld) [#/Vol] 1.66 10*3/uL Normal 1.20-4.00 [facility] Comment on above: Performed By: #### L [id number] #### [facility] ([facility]) [address] [place] [address] Lymphocytes/100 WBC (Bld) 23.0 % Normal 20.0-45.0 [facility] Comment on above: Performed By: #### L [id number] #### [facility] [address] [place] [address] MCH (RBC) [Entitic mass] 28.6 pg Normal 27.0-33.0 [facility] Comment on above: Performed By: #### L [id number] #### [facility] [address] [place] [address] MCV (RBC) [Entitic vol] 84.8 fL Normal 82.0-98.0 [facility] Comment on above: Performed By: #### L [id number] #### [facility] ([facility]) [address] [place] [address] Monocytes (Bld) [#/Vol] 0.83 10*3/uL Normal 0.10-1.00 [facility] Comment on above: Performed By: #### L [id number] #### [facility] ([facility]) [address] [place] [address] Monocytes/100 WBC (Bld) 11.5 % Normal 5.0-12.0 [facility] Comment on above: Performed By: #### L [id number] #### [facility] ([facility]) [address] [place] [address] Neutrophils (Bld) [#/Vol] 4.37 10*3/uL Normal 1.60-7.60 [facility] Comment on above: Performed By: #### L [id number] #### [facility] ([facility]) [address] [place] [address] Neutrophils/100 WBC (Bld) 60.6 % Normal 40.0-72.0 [facility] Comment on above: Performed By: #### L [id number] #### [facility] [address] [place] [address] NRBC (PER 100 WBCS) BY AUTOMATED COUNT 0.0 % Normal 0 [facility] Comment on above: Performed By: #### L [id number] #### [facility] [address] [place] [address] PLATELETS (10*3/UL) IN BLOOD AUTOMATED COUNT 301 10*3/uL Normal 150-400 [facility] Comment on above: Performed By: #### L [id number] #### [facility] ([facility]) [address] [place] [address] RBC (Bld) [#/Vol] 4.20 10*6/uL Normal 3.80-5.00 [facility] Comment on above: Performed By: #### L [id number] #### [facility] ([facility]) [address] [place] [address] WBC (Bld) [#/Vol] 7.21 10*3/uL Normal 4.00-10.60 [facility] Comment on above: Performed By: #### L [id number] #### [facility] ([facility]) [address] [place] [address] CKon 04-26-2023 CREATINE KINASE (U/L) IN SER/PLAS 396.0 U/L High 30.0-223.0 [facility] Comment on above: Performed By: #### L [id number] #### [facility] ([facility]) [address] [place] [address] COMPREHENSIVE METABOLIC PANE Cedric 04-26-2023 Albumin [Mass/Vol] 3.0 g/dL Low 3.5-5.7 [facility] Comment on above: Performed By: #### L [id number] #### [facility] ([facility]) [address] [place] [address] ALP [Catalytic activity/Vol] 63 U/L Normal 34-104 [facility] Comment on above: Performed By: #### L [id number] #### [facility] ([facility]) [address] [place] [address] ALT [Catalytic activity/Vol] 17 U/L Normal 7-52 [facility] Comment on above: Performed By: #### L [id number] #### [facility] ([facility]) [address] [place] [address] Anion gap [Moles/Vol] 10 mmol/L Normal 7-20 [facility] Comment on above: Performed By: #### L [id number] #### [facility] ([facility]) [address] [place] [address] AST [Catalytic activity/Vol] 41 U/L High 13-39 [facility] Comment on above: Performed By: #### L [id number] #### [facility] ([facility]) [address] [place] [address] Bilirubin [Mass/Vol] 0.3 mg/dL Normal 0.3-1.0 [facility] Comment on above: Performed By: #### L [id number] #### [facility] ([facility]) [address] [place] [address] Calcium [Mass/Vol] 8.4 mg/dL Low 8.6-10.3 [facility] Comment on above: Performed By: #### L [id number] #### [facility] ([facility]) [address] [place] [address] Chloride [Moles/Vol] 110 mmol/L High 98-107 [facility] Comment on above: Performed By: #### L [id number] #### [facility] ([facility]) [address] [place] [address] CO2 [Moles/Vol] 25 mmol/L Normal 21-31 [facility] Comment on above: Performed By: #### L [id number] #### [facility] ([facility]) [address] [place] [address] Creatinine [Mass/Vol] 0.70 mg/dL Normal 0.60-1.20 [facility] Comment on above: Performed By: #### L [id number] #### [facility] ([facility]) [address] [place] [address] GLOMERULAR FILTRATION RATE ML/MIN/1.73 SQ M.PREDICTED 94.7 mL/min/1.73m*2 Normal >60.0 [facility] Comment on above: Result Comment: The [facility]???s estimated glomerular filtration rate (eGFR) will no [...] individuals. Performed By: #### L [id number] #### [facility] ([facility]) [address] [place] [address] Glucose [Mass/Vol] 75 mg/dL Normal 70-100 [facility] Comment on above: Performed By: #### L [id number] #### [facility] ([facility]) [address] [place] [address] Potassium [Moles/Vol] 3.5 mmol/L Normal 3.5-5.1 [facility] Comment on above: Performed By: #### L [id number] #### [facility] ([facility]) [address] [place] [address] Protein [Mass/Vol] 5.6 g/dL Low 6.0-8.3 [facility] Comment on above: Performed By: #### L [id number] #### [facility] [address] [place] [address] Sodium [Moles/Vol] 141 mmol/L Normal 136-145 [facility] Comment on above: Performed By: #### L [id number] #### [facility] ([facility]) [address] [place] [address] Urea nitrogen [Mass/Vol] 12 mg/dL Normal 7-25 [facility] Comment on above: Performed By: #### L [id number] #### [facility] [address] [place] [address] UREA NITROGEN/CREATININE (MASS RATIO) IN SER/PLAS 17.1 Normal [facility] Comment on above: Performed By: #### L [id number] #### [facility] ([place]) [place] [address] CONSULTon 04-26-2023 CONSULT ------ -- Attestation signed [...] Teaching Physician's Revisions: none Ofe Little MD MA Cardiology -- Reason For Consult NSTEMI, 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 female who was admittied initailly at [facility] for NSTEMI. PMHx of CAD s/p CABG x4 (PARKER-LAD, L radial-OM 1, SVG-OM2, SVG-PDA) in 05/07/2017, HLD, smoker, HFmrEF, unable to reliably assess NYHA at this point, diabetes mellitus. Patient had initially presented to [facility] by ambulance after he was found on [...] q8h PRN (more content not included)... Normal [facility] HEMOGLOBIN A1Con 04-26-2023 Glucose [Mass/Vol] 212 mg/dL Normal [facility] Comment on above: Performed By: #### L [id number] #### [facility] ([facility]) [address] [place] [address] HbA1c (Bld) [Mass fraction] 9.0 % High 4.0-6.0 [facility] Comment on above: Performed By: #### L [id number] #### [facility] ([facility]) [address] [place] [address] HEPARIN LEVELon 08-04-2023 HEPARIN UNFRACTIONATED (U/ML) IN PPP BY CHROMOGENIC METHOD 0.27 IU/mL Low 0.3-0.7 [facility] Comment on above: Order Comment: Basel ine aPTT before initiating heparin infusion. Result Comment: [place] roxaban and Apixaban will interfere with the anti Xa assay used to monitor UFH and LMWH. Performed By: #### L [id number] #### [facility] ([facility] [address] [place] [address] LIPID PANELon 04-26-2023 CHOL/HDL 2.5 mg/dL Normal [facility] Comment on above: Performed By: #### L [id number] #### [facility] ([facility]) [address] [place] [address] Cholesterol [Mass/Vol] 85 mg/dL Low 120-200 [facility] Comment on above: Performed By: #### L [id number] #### [facility] ([facility]) [address] [place] [address] Magnesium [Mass/Vol] 67 mg/dL Normal 40-149 [facility] Comment on above: Result Comment: TRIG LYCERIDE REFERENCE RANGE: 20 YEARS AND OLDER CARDIOVASCULAR RISK LESS THAN 150 mg/dL LOW RISK 150 TO 199 mg/dL BORDERLINE RISK 200 mg/dL AND GREATER HIGH RISK Performed By: #### L [id number] #### [facility] ([facility]) [address] [place] [address] Magnesium [Mass/Vol] 38 mg/dL Normal 0-160 [facility] Comment on above: Performed By: #### L [id number] #### [facility] ([facility]) [address] [place] [address] Magnesium [Mass/Vol] 34 mg/dL Normal 23-92 [facility] Comment on above: Performed By: #### L [id number] #### [facility] ([facility]) [address] [place] [address] NON HDL CHOL. (LDL+VLDL) 51 Normal [facility] Comment on above: Performed By: #### L [id number] #### [facility] ([facility]) [address] [place] [address] TOTAL VLDL-C 13 mg/dL Normal 0-40 [facility] Comment on above: Performed By: #### L [id number] #### [facility] [address] [facility] [place] [address] MAGNESIUMon 04-26-2023 Magnesium [Mass/Vol] 0.6 mg/dL Invalid Interpretation Code 1.9-2.7 [facility] Comment on above: Performed By: #### L [id number] #### [facility] ([facility] [address] [place] [address] NURSNOTEon 04-26-2023 NURSNOTE Critical trop 2.45 a nd mag 0.6 reported by lab, admitting MD made aware. No current orders. Normal [facility] NURSNOTE Labs ordered at 1400 , nurse called lab x4 as no current labs completed. Nurse assured labs will be drawn shortly. Normal [facility] POCT GLUCOSE METER UNSOLICIT ED RESULTSon 04-26-2023 Glucose [Mass/Vol] 78 mg/dL Normal 70-105 [facility] Comment on above: Order Comment: Waive d Testing in the ED is performed under the ED CLIA certificate #[id number]. Result Comment: [email or web address] Performed By: #### L [id number] #### [facility] [facility] [address] [place] [address] Glucose [Mass/Vol] 70 mg/dL Normal 70-105 [facility] Comment on above: Order Comment: Waive d Testing in the ED is performed under the ED CLIA certificate #[id number]. Result Comment: [email or web address] [email or web address] Performed By: #### L [id number] #### [facility] [address] [place] [address] Glucose [Mass/Vol] 62 mg/dL Low 70-105 [facility] Comment on above: Order Comment: Waive d Testing in the ED is performed under the ED CLIA certificate #[id number]. Result Comment: [email or web address] [email or web address] Performed By: #### L [id number] ####[facility] ([facility])[address] [place] [address] TROPONIN Ion 04-26-2023 Troponin I.cardiac [Mass/Vol] 2.45 ng/mL Critically high 0.00-0.04 [facility] Comment on above: Performed By: #### L AB15 #### [facility] [address] [place] [address] TSH3 REFLEX TO FT4on 023 THYROTROPIN (MIU/L) IN SER/PLAS BY DETECTION LIMIT <= 0.05 MIU/L 1.82 mIU/L Normal 0.34-5.60 [facility] Comment on above: Performed By: #### L AB17 #### [facility] [address] [place] [address] Basic Metabolic Panelon 02-21 Anion gap [Moles/Vol] 9 mmol/L 9 - 17 mmol/L [facility] Calcium [Mass/Vol] 8.8 mg/dL 8.6 - 10. 4 mg/dL [facility] [employer] Chloride [Moles/Vol] 106 mmol/L 98 - 10 7 mmol/L [facility] CO2 [Moles/Vol] 25 mmol/L 20 - 31 mmol/L [facility] Creatinine [Mass/Vol] 0.83 mg/dL 0.50 - 0.90 mg/dL [facility] GFR/1.73 sq M.predicted MDRD (S/P/Bld) [Vol rate/Area] - PINF [facility] Comment on above: These results are not [...] 152 mg/dL High 70 - 99 mg/dL [facility] Interpretation and review of laboratory results Abnormal [facility] Potassium [Moles/Vol] 4.9 mmol/L 3.7 - 5.3 mmol/L [facility] Sodium [Moles/Vol] 140 mmol/L 135 - 144 mmol/L [facility] Urea nitrogen [Mass/Vol] 15 mg/dL 8 - 23 mg/dL [facility] Urea nitrogen/Creatinine [Mass ratio] 18 mg/mg 9 - 20 [facility] CBC with Auto Differentialon 03-11-2023 Basophils (Bld) [#/Vol] 0.04 10*3/uL [facility] Basophils/100 WBC (Bld) 0 % 0 - 2 % [facility] Eosinophils (Bld) [#/Vol] 0.17 10*3/uL [facility] Eosinophils/100 WBC (Bld) 2 % 1 - 4 % [facility] Erythrocyte distribution width (RBC) [Ratio] 13.2 % 11.8 - 14.4 % [facility] Hematocrit (Bld) [Volume fraction] 38.5 % 36.3 - 47.1 % [facility] Hemoglobin (Bld) [Mass/Vol] 12.5 g/dL 11.9 - 15.1 g/dL [facility] Immature granulocytes (Bld) [#/Vol] 0.10 10*3/uL [facility] Immature granulocytes/100 WBC (Bld) 1 % High 0 [facility] Interpretation and review of laboratory results Abnormal [facility] Lymphocytes/100 WBC (Bld) 19 % Low 24 - 43 % [facility] Lymphocytes/100 WBC (Bld) 1.88 % [facility] MCH (RBC) [Entitic mass] 29.1 pg 25.2 - 33.5 pg [facility] MCHC (RBC) [Mass/Vol] 32.5 g/dL 28.4 - 34.8 g/dL [facility] MCV (RBC) [Entitic vol] 89.7 fL 82.6 - 102.9 fL [facility] Monocytes/100 WBC (Bld) 9 % 3 - 12 % [facility] Monocytes/100 WBC (Bld) 0.90 % [facility] Neutrophils/100 WBC (Bld) 69 % High 36 - 65 % [facility] NRBC Automated 0.0 0.0 per 100 WBC [facility] Platelet mean volume (Bld) [Entitic vol] 10.2 fL 8.1 - 13.5 fL [facility] Platelets (Bld) [#/Vol] 327 10*3/uL [facility] RBC (Bld) [#/Vol] 4.29 10*6/uL 3.95 - 5.1 1 m/uL [facility] Segmented neutrophils/100 WBC (Bld) 6.72 % [facility] WBC other (Bld) [#/Vol] 9.8 [facility] Microscopic Urinalysison Bacteria LM Ql (Urine sed) 3+ Abnormal None [facility] Epithelial cells LM.HPF (Urine sed) [#/Area] 10 TO 20 [facility] Interpretation and review of laboratory results Abnormal [facility] RBC LM.HPF (Urine sed) [#/Area] 0 TO 2 [facility] WBC LM.HPF (Urine sed) [#/Area] 10 TO 20 [facility] Urinalysis with Reflex to Cu ltureon 03-11-2023 Bilirubin Ql (U) Negative NEGATIVE [facility] Clarity (U) Clear Clear [facility] Color (U) Yellow Yellow [facility] Glucose Test strip (U) [Mass/Vol] Negative NEGATIVE [facility] Hemoglobin Auto test strip Ql (U) Negative NEGATIVE [facility] Interpretation and review of laboratory results Abnormal [facility] Ketones (U) [Mass/Vol] Negative NEGATIVE [facility] Leukocyte esterase Test strip Ql (U) MODERATE Abnormal NEGATIVE [facility] Nitrite Ql (U) Positive Abnormal NEGATIVE [facility] pH (U) 7.5 [pH] 5.0 - 9.0 [facility] Protein (U) [Mass/Vol] 1+ Abnormal NEGATIVE [facility] Specific gravity (U) [Rel density] 1.015 1.010 - 1.020 [facility] Urobilinogen Qn (U) Normal Normal [facility] Cult,Urineon 03-09-2023 Cult,Urine Specimen Description .URINE Culture NO SIGNIFICANT GROWTH Report Status FINAL 03/09/2023 Normal [facility] Comment on above: Performed By: #### U RC #### [facility] [address] [place] [address] [employer] Member: Joey Aguilar MD Laboratory - Microbiology an d Antimicrobial susceptibilityon 03-07-2023 Bacteria identified Cx Nom (U) See Note [facility] Comment on above: Note: Specimen Descr iption .URINECulture NO SIGNIFICANT GROWTHReport Status FINAL 03/09/2023Responsible Observer: KALEB KLEIN ([id number]) No Panel Informationon 03-07 Reported Physicians See Note [facility] Comment on above: Note: Reported Physi cians:Ordering: Sonya PosadaAttending: Hayley PosadaieReferring: Sonya Posada CT CSPINE WO CONon CT CSPINE WO CON Normal [facility] CT HEAD WO CONon 01-10-2023 CT HEAD WO CON Normal [facility] POINT OF CARE GLUCOSEon 12-23 Glucose [Mass/Vol] 177 mg/dL Critically high 74-106 T [facility] Comment on above: Performed By: #### P OCGLUC ####[facility] [address] [place], [place] [address]Gx. Antonella Medrano XR KNEE RT 3Von 01-10-2023 XR KNEE RT 3V Normal [facility] XR WRIST LT MIN 3 Von 2022 XR WRIST LT MIN 3 V Normal [facility] CBC AUTO DIFFon 01-06-2023 BASO # 0.0 103/ul Normal 0.0-0.1 [facility] Comment on above: Performed By: #### C BC ####[facility] [address] [place], [place] [address]Uh. Antonella Medrano Basophils/100 WBC (Bld) 0.4 % Normal 0.2-2.0 [facility] Comment on above: Performed By: #### C BC ####[facility] [address] [place], [place] [address]Dr. Antonella Medrano EO # 0.2 103/ul Normal 0.0-0.7 [facility] Comment on above: Performed By: #### C BC ####[facility] [address] [place], [place] [address]Dr. Antonella Medrano Eosinophils/100 WBC (Bld) 1.8 % Normal 0.9-7.0 [facility] Comment on above: Performed By: #### C BC ####[facility] Y[address] [place], [place] [address]Dr. Antonella Medrano Erythrocyte distribution width (RBC) [Ratio] 13.9 % Normal 11.0-15.0 [facility] Comment on above: Performed By: #### C BC ####[facility] [address] [place], [place] [address]Dr. Antonella Medrano Hematocrit (Bld) [Volume fraction] 36.0 % Normal 36.0-48.0 [facility] Comment on above: Performed By: #### C BC ####[facility] [address] [place], [place] [address]Dr. Antonella Medrano Hemoglobin (Bld) [Mass/Vol] 12.2 g/dL Normal 12.0-16.0 [facility] Comment on above: Performed By: #### C BC ####[facility] C[address] [place], [place] [address]Dr. Antonella Mitchell IG # 0.12 10e3/ul Critically high 0.00-0.03 [facility] Comment on above: Performed By: #### C BC ####[facility] Vg[address]ot[address]fe[address] [place], [place] [address]Dr. Antonella Mitchell IG % 1.3 % Critically high 0.0-0.5 [facility] Comment on above: Performed By: #### C BC ####[facility] Tw[address] [place], [place] [address]Dr. Antonella Medrano LYMPH # 2.3 103/ul Normal 1.2-3.8 [facility] Comment on above: Performed By: #### C BC ####[facility] [address] [place] [address]DrGerman Medrano Lymphocytes/100 WBC (Bld) 25.8 % Normal 20.5-60.0 [facility] Comment on above: Performed By: #### C BC ####[facility] [address] [place] [address]DrGerman Medrano MANUAL DIFF REQ NO Normal [facility] Comment on above: Performed By: #### C BC ####[facility] [address] [place] [address]DrGerman Medrano MCH (RBC) [Entitic mass] 30.0 pg Normal 26.7-34.0 [facility] Comment on above: Performed By: #### C BC ####[facility] [address] [place], [place] [address]DrGerman Medrano MCHC (RBC) [Mass/Vol] 33.9 g/dL Normal 29.9-35.2 [facility] Comment on above: Performed By: #### C BC ####[facility] [address] [place], [place] [address]DrGerman Medrano MCV (RBC) [Entitic vol] 88.5 fL Normal 81.0-99.0 [facility] Comment on above: Performed By: #### C BC ####[facility] [address] [place], [place] [address]DrGerman Medrano MONO # 1.0 103/ul Critically high 0.3-0.8 [facility] Comment on above: Performed By: #### C BC ####[facility] [address] [place], [place] [address]DrGerman Medrano Monocytes/100 WBC (Bld) 10.6 % Normal 1.7-12.0 [facility] Comment on above: Performed By: #### C BC ####[facility] [address] [place], [place] [address]DrGerman Medrano NEUT # 5.4 103/ul Normal 1.4-6.5 [facility] Comment on above: Performed By: #### C BC ####[facility] [address] [place] [address]Dr. Antonella Medrano Neutrophils/100 WBC (Bld) 60.1 % Normal 43.0-75.0 [facility] Comment on above: Performed By: #### C BC ####[facility] [address] [place] [address]Dr. Antonella Medrano Platelet mean volume (Bld) [Entitic vol] 10.6 fL Normal 9.5-13.5 [facility] Comment on above: Performed By: #### C BC ####[facility] [address] [place] [address]Dr. Antonella Medrano PLT 306 103/ul Normal 150-450 [facility] Comment on above: Performed By: #### C BC ####[facility] [address] [place] [address]DrGerman Antonella Mderano RBC 4.07 106/ul Critically low 4.20-5.40 [facility] Comment on above: Performed By: #### C BC ####[facility] [address] [place] [address]DrGerman Antonella Medrano WBC 9.0 103/ul Normal 4.0-11.0 [facility] Comment on above: Performed By: #### C BC ####[facility] I[address] [place], [place] [address]Dr. Antonella Medrano CT CSPINE WO CONon 3 CT CSPINE WO CON Normal [facility] POINT OF CARE GLUCOSEon 12-22 Glucose [Mass/Vol] 101 mg/dL Normal 74-106 [facility] Comment on above: Performed By: #### P OCGLUC ####[facility] [address] [place] [address]DrGerman Antonella Mitchell PROF 14(COMP METB)on 023 Albumin [Mass/Vol] 2.7 g/dL Critically low 3.4-5.0 [facility] Comment on above: Performed By: #### C MARLEY, HSTROPN ####[facility] [address] [place] [address]Dr. Antonella Medrano Albumin/Globulin [Mass ratio] 0.8 {ratio} Normal [facility] Comment on above: Performed By: #### C MARLEY, HSTROPN ####[facility] [address] [place] [address]Dr. Antonella Medrano ALP [Catalytic activity/Vol] 95 U/L Normal 46-116 [facility] Comment on above: Performed By: #### C MARLEY, HSTROPN ####[facility] [address] [place] [address]Dr. Antonella Medrano ALT [Catalytic activity/Vol] 15 U/L Normal 14-59 [facility] Comment on above: Performed By: #### C MARLEY, HSTROPN ####[facility] We[address]ujqaz[address] [place], [place] [address]Dr. Antonella Medrano Anion gap [Moles/Vol] 12.9 mmol/L Normal [facility] Comment on above: Performed By: #### C MARLEY, HSTROPN ####[facility] Fms[address] [place], [place] [address]Dr. Mariafilemon Medrano AST [Catalytic activity/Vol] 13 U/L Critically low 15-37 [facility] Comment on above: Performed By: #### C MARLEY, HSTROPN ####[facility] Igggtngv[address] [place], [place] [address]Dr. Antonella Medrano Bilirubin [Mass/Vol] 0.2 mg/dL Normal 0.2-1.0 [facility] Comment on above: Performed By: #### C MARLEY, HSTROPN ####[facility] [address] [place], [place] [address]Dr. Antonella Medrano Calcium [Mass/Vol] 8.6 mg/dL Normal 8.5-10.1 [facility] Comment on above: Performed By: #### C MARLEY, HSTROPN ####[facility] [address] [place], [place] [address]Dr. Antonella Medrano Chloride [Moles/Vol] 106 mmol/L Normal 98-107 [facility] Comment on above: Performed By: #### C MARLEY, HSTROPN ####[facility] [address] [place] [address]Dr. Antonella Medrano CO2 [Moles/Vol] 28.1 mmol/L Normal 21.0-32.0 [facility] Comment on above: Performed By: #### C MARLEY, HSTROPN ####[facility] [address] [place] [address]Dr. Antonella Medrano Creatinine [Mass/Vol] 1.05 mg/dL Critically high 0.55-1.02 [facility] Comment on above: Performed By: #### C MARLEY, HSTROPN ####[facility] [address]im[address]jndu[address] [place], [place] [address]Dr. Antonella Medrano EGFR-AF MEXICAN >60 Normal >=60 [facility] Comment on above: Performed By: #### C MARLEY, HSTROPN ####[facility] Ivfarsshfr[address] [place] [address]Dr. Antonella Medrano EGFR-NON AF MEXICAN 52 mL/min/1.73m2 Critically low >=60 [facility] Comment on above: Performed By: #### C MARLEY, HSTROPN ####[facility] [address] [place] [address]Dr. Antonella Medrano Globulin (S) [Mass/Vol] 3.5 g/dL Normal [facility] Comment on above: Performed By: #### C MARLEY, HSTROPN ####[facility] [address] [place] [address]Dr. Antonella Medrano Glucose [Mass/Vol] 96 mg/dL Normal 74-106 [facility] Comment on above: Performed By: #### C MARLEY, HSTROPN ####[facility] [address]but[address]vb[address] [place] [address]Dr. Mariafilemon Medrano Potassium [Moles/Vol] 4.0 mmol/L Normal 3.5-5.1 [facility] Comment on above: Performed By: #### C MARLEY, HSTROPN ####[facility] [address] [place] [address]Dr. Antonella Medrano Protein [Mass/Vol] 6.2 g/dL Critically low 6.4-8.2 [facility] Comment on above: Performed By: #### C MP, HSTROPN ####[facility] [address] [place] [address]Dr. Antonella Medrano Sodium [Moles/Vol] 143 mmol/L Normal 136-145 [facility] Comment on above: Performed By: #### C MP, HSTROPN ####[facility] [address]ixmf[address] [place] [address]Dr. Antonella Medrano Urea nitrogen [Mass/Vol] 22.0 mg/dL Critically high 7.0-18.0 [facility] Comment on above: Performed By: #### C MARLEY, HSTROPN ####[facility] [address] [place] [address]Dr. Antonella Medrano Urea nitrogen/Creatinine [Mass ratio] 21.0 mg/mg Normal [facility] Comment on above: Performed By: #### C MP, HSTROPN ####[facility] [address] [place] [address]Dr. Antonella Medrano TROPONIN, HIGH SENSITIVITYon 01-06-2023 HSTROP 48.1 pg/mL Normal 4.0-51.3 [facility] Comment on above: Result Comment: CUT- OFF POINTS HAVE BEEN ESTABLISHED BASED ON THE FOURTH UNIVERSAL DEFINITIONS OF MYOCARDIALINFARCTION. THE UPPER REFERENCE LIMIT (URL) OF TROPONIN, DEFINED THE 99TH PERCENTILE OFcTnI DISTRIBUTION IN A REFERENCE POPULATION, HAS BEEN CONFIRMED THE DECISION THRESHOLDFOR [place] DIAGNOSIS. Performed By: #### C MP, HSTROPN ####[facility] [address] [place], [place] [address]Dr. Antonella Medrano XR PELVIS 1_2 VIEWSon 2022 XR PELVIS 1_2 VIEWS Normal [facility] XR SHOULDER LT 2V or >on XR SHOULDER LT 2V or > Normal [facility] CULTURE URINEon 01-03-2023 CULTURE URINE Culture Observations : GREATER THAN TWO ORGANISMS PRESENT. PLEASE RESUBMIT CLEAN CATCH MID-STREAM URINE IF CLINICALLY INDICATED. Normal [facility] Comment on above: Performed By: #### U RCX ####[facility] [address] [place] [address]Dr. Antonella Medrano CBC AUTO DIFFon 01-02-2023 BASO # 0.0 103/ul Normal 0.0-0.1 [facility] Comment on above: Performed By: #### C BC ####[facility] [address]iafvtsj[address] [place], [place] [address]Dr. Antonella Medrano Basophils/100 WBC (Bld) 0.4 % Normal 0.2-2.0 [facility] Comment on above: Performed By: #### C BC ####[facility] U[address] [place], [place] [address]Dr. Antonella Medrano EO # 0.2 103/ul Normal 0.0-0.7 [facility] Comment on above: Performed By: #### C BC ####[facility] E[address] [place], [place] [address]Dr. Antonella Medrano Eosinophils/100 WBC (Bld) 3.0 % Normal 0.9-7.0 [facility] Comment on above: Performed By: #### C BC ####[facility] [address] [place], [place] [address]Dr. Antonella Medrano Erythrocyte distribution width (RBC) [Ratio] 14.0 % Normal 11.0-15.0 [facility] Comment on above: Performed By: #### C BC ####[facility] [address] [place], [place] [address]Dr. Antonella Medrano Hematocrit (Bld) [Volume fraction] 37.5 % Normal 36.0-48.0 [facility] Comment on above: Performed By: #### C BC ####[facility] B[address]wh[address] [place], [place] [address]Dr. Antonella Medrano Hemoglobin (Bld) [Mass/Vol] 12.1 g/dL Normal 12.0-16.0 [facility] Comment on above: Performed By: #### C BC ####[facility] [address] [place] [id number]. Antonella Medrano IG # 0.10 10e3/ul Critically high 0.00-0.03 [facility] Comment on above: Performed By: #### C BC ####[facility] [address]hr[address] [place] [phone]. Antonella Medrano IG % 1.3 % Critically high 0.0-0.5 [facility] Comment on above: Performed By: #### C BC ####[facility] [address] [place] [address]Dr. Antonella Medrano LYMPH # 2.1 103/ul Normal 1.2-3.8 [facility] Comment on above: Performed By: #### C BC ####[facility] [address] [place] [address]Dr. Antonella Medrano Lymphocytes/100 WBC (Bld) 27.4 % Normal 20.5-60.0 [facility] Comment on above: Performed By: #### C BC ####[facility] [address] [place] [address]Dr. Antonella Medrano MANUAL DIFF REQ NO Normal [facility] Comment on above: Performed By: #### C BC ####[facility] [address] [place] [address]Dr. Antonella Medrano MCH (RBC) [Entitic mass] 28.6 pg Normal 26.7-34.0 [facility] Comment on above: Performed By: #### C BC ####[facility] Eq[address] [place], [place] [address]Dr. Antonella Medrano MCHC (RBC) [Mass/Vol] 32.3 g/dL Normal 29.9-35.2 [facility] Comment on above: Performed By: #### C BC ####[facility] [address] [place] [address]Dr. Antonella Medrano MCV (RBC) [Entitic vol] 88.7 fL Normal 81.0-99.0 [facility] Comment on above: Performed By: #### C BC ####[facility] [address] [place] [id number]. Antonella Medrano MONO # 0.7 103/ul Normal 0.3-0.8 [facility] Comment on above: Performed By: #### C BC ####[facility] [address] [place] [phone]. Antonella Medrano Monocytes/100 WBC (Bld) 8.6 % Normal 1.7-12.0 [facility] Comment on above: Performed By: #### C BC ####[facility] [address] [place] [phone]. Antonella Medrano NEUT # 4.6 103/ul Normal 1.4-6.5 [facility] Comment on above: Performed By: #### C BC ####[facility] [address]kbru[address] [place] [phone]. Antonella Medrano Neutrophils/100 WBC (Bld) 59.3 % Normal 43.0-75.0 [facility] Comment on above: Performed By: #### C BC ####[facility] [address] [place] [phone]. Antonella Medrano Platelet mean volume (Bld) [Entitic vol] 9.9 fL Normal 9.5-13.5 [facility] Comment on above: Performed By: #### C BC ####[facility] [address] [place] [phone]. Antonella Medrano PLT 278 103/ul Normal 150-450 [facility] Comment on above: Performed By: #### C BC ####[facility] W[address]jobrxup[address] [place] [phone]. Antonella Medrano RBC 4.23 106/ul Normal 4.20-5.40 [facility] Comment on above: Performed By: #### C BC ####[facility] [address] [place] [phone]. Antonella Medrano WBC 7.7 103/ul Normal 4.0-11.0 [facility] Comment on above: Performed By: #### C BC ####[facility] [address] [place], [place] [address]Dr. Antonella Medrano MAGNESIUMon 01-02-2023 Magnesium [Mass/Vol] 1.3 mg/dL Critically low 1.8-2.4 [facility] Comment on above: Performed By: #### M G ####[facility] [address] [place] [address]Dr. Antonella Medrano POINT OF CARE GLUCOSEon 12-22 Glucose [Mass/Vol] 307 mg/dL Critically high 74-106 [facility] Comment on above: Performed By: #### P OCGLUC ####[facility] Jr[address]icyxf[address] [place] [address]Dr. Antonella Medrano Glucose [Mass/Vol] 242 mg/dL Critically high 74-106 [facility] Comment on above: Performed By: #### P OCGLUC ####[facility] [address] [place] [address]Dr. Antonella Medrano PROF CHEM 8 (BAS METB)on Anion gap [Moles/Vol] 11.5 mmol/L Normal [facility] Comment on above: Performed By: #### B MP ####[facility] [address]xd[address]ivep[address] [place] [address]Dr. Antonella Medrano Calcium [Mass/Vol] 8.5 mg/dL Normal 8.5-10.1 [facility] Comment on above: Performed By: #### B MP ####[facility] [address] [place] [address]Dr. Antonella Medrano Chloride [Moles/Vol] 106 mmol/L Normal 98-107 [facility] Comment on above: Performed By: #### B MP ####[facility] [address]auzfgb[address] [place] [address]Dr. Antonella Medrano CO2 [Moles/Vol] 25.8 mmol/L Normal 21.0-32.0 [facility] Comment on above: Performed By: #### B MP ####[facility] Leksokrxbk[address] [place] [address]Dr. Antonella Medrano Creatinine [Mass/Vol] 0.81 mg/dL Normal 0.55-1.02 [facility] Comment on above: Performed By: #### B MP ####[facility] Bzrvvhbfun8[address] [place] [address]Dr. Antonella Mitchell EGFR-AF MEXICAN >60 Normal >=60 [facility] Comment on above: Performed By: #### B MP ####[facility] Ohmntxvaph28[address] [place] [address]Dr. Antonella Mitchell EGFR-NON AF MEXICAN >60 Normal >=60 [facility] Comment on above: Performed By: #### B MP ####[facility] Rtqmgajnhr8053 [place] [address]Dr. Mariafilemon Mitchell Glucose [Mass/Vol] 185 mg/dL Critically high 74-106 [facility] Comment on above: Performed By: #### B MP ####[facility] Shzohcifjq[address] [place], [place] [address]Dr. Antonella Medrano Potassium [Moles/Vol] 4.3 mmol/L Normal 3.5-5.1 [facility] Comment on above: Performed By: #### B MP ####[facility] Tzhxohsjag[address] [place], [place] [address]Dr. Antonella Medrano Sodium [Moles/Vol] 139 mmol/L Normal 136-145 [facility] Comment on above: Performed By: #### B MP ####[facility] Wxokjkujem[address] [place], [place] [address]Dr. Antonella Medrano Urea nitrogen [Mass/Vol] 17.0 mg/dL Normal 7.0-18.0 [facility] Comment on above: Performed By: #### B MP ####[facility] Qbkwfargvq209[address] [place], [place] [address]Dr. Antonella Medrano Urea nitrogen/Creatinine [Mass ratio] 21.0 mg/mg Normal [facility] Comment on above: Performed By: #### B MP ####[facility] Yiercueqfg07[address] [place], [place] [address]Dr. Antonella Medrano CBC AUTO DIFFon 01-01-2023 BASO # 0.0 103/ul Normal 0.0-0.1 [facility] Comment on above: Performed By: #### C BC ####[facility] Ubqmbzllvu00[address] [place] [id number]. Antonella Medrano Basophils/100 WBC (Bld) 0.3 % Normal 0.2-2.0 [facility] Comment on above: Performed By: #### C BC ####[facility] Frdvuoctnx[address] [place], [place] [address]Dr. Antonella Medrano EO # 0.1 103/ul Normal 0.0-0.7 [facility] Comment on above: Performed By: #### C BC ####[facility] Ivtpkftxdi33[address] [place], [place] [address]Dr. Antonella Medrano Eosinophils/100 WBC (Bld) 1.4 % Normal 0.9-7.0 [facility] Comment on above: Performed By: #### C BC ####[facility] Hdnikqtfhg25[address] [place], [place] [address]Dr. Antonella Medrano Erythrocyte distribution width (RBC) [Ratio] 13.9 % Normal 11.0-15.0 [facility] Comment on above: Performed By: #### C BC ####[facility] Qecdtovhug40[address] [place], [place] [address]Dr. Antonella Medrano Hematocrit (Bld) [Volume fraction] 38.0 % Normal 36.0-48.0 [facility] Comment on above: Performed By: #### C BC ####[facility] Iuhcixddbh7[address] [place], [place] [address]Dr. Antonella Medrano Hemoglobin (Bld) [Mass/Vol] 12.6 g/dL Normal 12.0-16.0 [facility] Comment on above: Performed By: #### C BC ####[facility] Hlxnhramxx60[address] [place], [place] [address]Dr. Antonella Medrano IG # 0.15 10e3/ul Critically high 0.00-0.03 [facility] Comment on above: Performed By: #### C BC ####[facility] Lskzbrvpmc76[address] [place], [place] [address]Dr. Antonella Medrano IG % 1.5 % Critically high 0.0-0.5 [facility] Comment on above: Performed By: #### C BC ####[facility] Knftybvxid6775 [place] [phone]. Antonella Mitchell LYMPH # 1.6 103/ul Normal 1.2-3.8 [facility] Comment on above: Performed By: #### C BC ####[facility] Viqagrdgtd5977 [place] [phone]. Mariafilemon Medrano Lymphocytes/100 WBC (Bld) 15.5 % Critically low 20.5-60.0 [facility] Comment on above: Performed By: #### C BC ####[facility] Jxqwbccjku2109 [place] [address]Dr. Antonella Medrano MANUAL DIFF REQ NO Normal [facility] Comment on above: Performed By: #### C BC ####[facility] Zezkhtmrhl1664[address] [place], [place] [address]Dr. Antonella Medrano MCH (RBC) [Entitic mass] 29.5 pg Normal 26.7-34.0 [facility] Comment on above: Performed By: #### C BC ####[facility] Kczmljinxi[address] [place], [place] [address]Dr. Mariafilemon Medrano MCHC (RBC) [Mass/Vol] 33.2 g/dL Normal 29.9-35.2 [facility] Comment on above: Performed By: #### C BC ####[facility] Yjlfkjbxes01[address] [place], [place] [address]Dr. Antonella Medrano MCV (RBC) [Entitic vol] 89.0 fL Normal 81.0-99.0 [facility] Comment on above: Performed By: #### C BC ####[facility] Nrofoiwxlm18[address] [place], [place] [address]Dr. Antonella Medrano MONO # 0.9 103/ul Critically high 0.3-0.8 [facility] Comment on above: Performed By: #### C BC ####[facility] Bevwahunkw[address] [place], [place] [address]Dr. Antonella Medrano Monocytes/100 WBC (Bld) 9.4 % Normal 1.7-12.0 [facility] Comment on above: Performed By: #### C BC ####[facility] Usrtnidcod5631 [place] [phone]. Antonella Medrano NEUT # 7.2 103/ul Critically high 1.4-6.5 [facility] Comment on above: Performed By: #### C BC ####[facility] Xqqumxivxl0065 [place] [phone]. Antonella Medrano Neutrophils/100 WBC (Bld) 71.9 % Normal 43.0-75.0 [facility] Comment on above: Performed By: #### C BC ####[facility] Yfdbficbcv8533 [place] [phone]. Antonella Medrano Platelet mean volume (Bld) [Entitic vol] 9.8 fL Normal 9.5-13.5 [facility] Comment on above: Performed By: #### C BC ####[facility] Jnaunnxfxj9264 [place] [address]Dr. Antonella Medrano PLT 266 103/ul Normal 150-450 [facility] Comment on above: Performed By: #### C BC ####[facility] Yolcrftrnc9462 [place] [phone]. Antonella Medrano RBC 4.27 106/ul Normal 4.20-5.40 [facility] Comment on above: Performed By: #### C BC ####[facility] Tjgkikokoa5430 [place] [phone]. Antonella Medrano WBC 10.0 103/ul Normal 4.0-11.0 [facility] Comment on above: Performed By: #### C BC ####[facility] Luqdbmshno[address] [place], [place] [address]Dr. Antonella Medrano Covid-19 PCR (CVDTB)on 12-22 SARS-CoV-2 (COVID-19) RNA TAISHA+probe Ql (Unsp spec) Not detected Normal NOT DETECTED [facility] Comment on above: Result Comment: When [...] for this test is supported by the Behavioral Therapist of Health and Human Service's declaration that [...] longer be used). Performed By: #### C JORGE A ####[facility] Jfzwlnhwnt39[address] [place], [place] [address]Dr. Antonella Medrano ER URINE PROFILEon 3 Bilirubin Ql (U) Negative Normal NEGATIVE [facility] Comment on above: Performed By: #### HALEY CLARK ####[facility] Ppinjzvljj32[address] [place], [place] [address]Dr. Antonella Medrano Clarity (U) CLEAR Normal CLEAR [facility] Comment on above: Performed By: #### HALEY CLARK ####[facility] Wwnaxbcymq997[address] [place], [place] [address]Dr. Antonella Medrano Color (U) LT. YELLOW Normal YELLOW [facility] Comment on above: Performed By: #### HALEY CLARK ####[facility] Gadsnmrkmx2525[address] [place], [place] [address]Dr. Antonella Medrano ERUAHD A micrscopic examina tion will be performed if indicated. Normal [facility] Comment on above: Performed By: #### HALEY CLARK ####[facility] Zoymhlchxu1038[address] [place], [place] [address]Dr. Antonella Medrano Glucose Ql (U) 100 mg/dl Abnormal NEGATIVE [facility] Comment on above: Performed By: #### HALEY CLARK ####[facility] Exyyjlwrrk71[address] [place], [place] [address]Dr. Antonella Medrano Hemoglobin Ql (U) TRACE-INTACT Abnormal NEGATIVE [facility] Comment on above: Performed By: #### Daniela LEE UMICRO ####[facility] Cwzyjzukia[address] [place] [address]Dr. Antonella Medrano Ketones Ql (U) Negative Normal NEGATIVE [facility] Comment on above: Performed By: #### Daniela LEE UMICRO ####[facility] Ktpmwzhgrs10[address] [place], [place] [address]Dr. Antonella Medrano LEUKOCYTES MODERATE Abnormal NEGATIVE [facility] Comment on above: Performed By: #### Daniela LEE UMICRO ####[facility] Xmmvcdnplz12[address] [place], [place] [address]Dr. Antonella Medrano Nitrite Ql (U) Negative Normal NEGATIVE [facility] Comment on above: Performed By: #### Daniela LEE UMICRO ####[facility] Zibrftxpie88[address] [place], [place] [address]Dr. Antonella Medrano pH (U) 5.5 [pH] Normal 5-9 [facility] Comment on above: Performed By: #### Daniela LEE UMICRO ####[facility] Iengzxtojx[address] [place], [place] [address]Dr. Antonella Medrano SPEC GRAVITY 1.010 Normal 1.005-<=1.0 25 [facility] Comment on above: Performed By: #### Daniela LEE UMICRO ####[facility] Rytwlrvmqw[address] [place], [place] [address]Dr. Antonella Medrano UA PROTEIN TRACE Normal NEGATIVE/ TRACE [facility] Comment on above: Performed By: #### Daniela LEE UMICRO ####[facility] Xvqdunmeem8[address] [place], [place] [address]Dr. Antonella Medrano UR MICRO IND INDICATED Normal [facility] Comment on above: Performed By: #### Daniela LEE UMICRO ####[facility] Zdfuomqbyi215[address] [place], [place] [address]Dr. Antonella Medrano Urobilinogen Qn (U) 0.2 {Oleg'U}/dL Normal 0.2 - 1. 0 [facility] Comment on above: Performed By: #### E HALEY LEE ####[facility] Slcjpesdll6467 [place] [address]Dr. Antonella Medrano MAGNESIUMon 01-01-2023 Magnesium [Mass/Vol] 0.9 mg/dL Critically low 1.8-2.4 [facility] Comment on above: Performed By: #### M G ####[facility] Raanbrhler2442 [place] [address]Dr. Antonella Medrano POINT OF CARE GLUCOSEon 12-22 Glucose [Mass/Vol] 133 mg/dL Critically high 74-106 [facility] Comment on above: Performed By: #### P OCGLUC ####[facility] Rglpfjkdva0154 [place] [address]Dr. Antonella Medrano Glucose [Mass/Vol] 114 mg/dL Critically high 74-106 [facility] Comment on above: Performed By: #### P OCGLUC ####[facility] Xjqsyafmhq80[address] [place], [place] [address]Dr. Antonella Medrano PROF 14(COMP METB)on 023 Albumin [Mass/Vol] 2.5 g/dL Critically low 3.4-5.0 [facility] Comment on above: Performed By: #### C MP ####[facility] Tjguhwwwnb6206 [place] [address]Dr. Antonella Medrano Albumin/Globulin [Mass ratio] 0.7 {ratio} Normal [facility] Comment on above: Performed By: #### C MP ####[facility] Pguhfafsdm3055 [place] [address]Dr. Antonella Medrano ALP [Catalytic activity/Vol] 97 U/L Normal 46-116 [facility] Comment on above: Performed By: #### C MP ####[facility] Czfgqxuluu8744 [place] [address]Dr. Antonella Medrano ALT [Catalytic activity/Vol] 15 U/L Normal 14-59 [facility] Comment on above: Performed By: #### C MP ####[facility] Henwbhlgpd174[address] [place], [place] [address]Dr. Antonella Medrano Anion gap [Moles/Vol] 14.4 mmol/L Normal [facility] Comment on above: Performed By: #### C MP ####[facility] Qpemjwqrkr4683 [place] [address]Dr. Antonella Medrano AST [Catalytic activity/Vol] 11 U/L Critically low 15-37 [facility] Comment on above: Performed By: #### C MP ####[facility] Yevchankao6421 [place] [address]Dr. Antonella Medrano Bilirubin [Mass/Vol] 0.2 mg/dL Normal 0.2-1.0 [facility] Comment on above: Performed By: #### C MP ####[facility] Gtppirlzrd245[address] [place], [place] [address]Dr. Antonella Medrano Calcium [Mass/Vol] 8.6 mg/dL Normal 8.5-10.1 [facility] Comment on above: Performed By: #### C MP ####[facility] Bzmjqpehrp399[address] [place], [place] [address]Dr. Antonella Medrano Chloride [Moles/Vol] 105 mmol/L Normal 98-107 [facility] Comment on above: Performed By: #### C MP ####[facility] Knwygutsxc45[address] [place], [place] [address]Dr. Antonella Mitchell CO2 [Moles/Vol] 26.8 mmol/L Normal 21.0-32.0 [facility] Comment on above: Performed By: #### C MP ####[facility] Lysdlihzit668[address] [place], [place] [address]Dr. Antonella Mitchell Creatinine [Mass/Vol] 0.83 mg/dL Normal 0.55-1.02 [facility] Comment on above: Performed By: #### C MP ####[facility] Zbogqtkavf84[address] [place], [place] [address]Dr. Mariafilemon Mitchell EGFR-AF MEXICAN >60 Normal >=60 [facility] Comment on above: Performed By: #### C MP ####[facility] Bjdiciqwms[address] [place], [place] [address]Dr. Antonella Medrano EGFR-NON AF MEXICAN >60 Normal >=60 [facility] Comment on above: Performed By: #### C MP ####[facility] Pbosqmkhha7848 [place] [address]Dr. Antonella Medrano Globulin (S) [Mass/Vol] 3.4 g/dL Normal [facility] Comment on above: Performed By: #### C MP ####[facility] Spnzhwnzdw1928 [place] [phone]. Antonella Medrano Glucose [Mass/Vol] 148 mg/dL Critically high 74-106 [facility] Comment on above: Performed By: #### C MP ####[facility] Ugeysvdqzo8238 [place] [phone]. Antonella Medrano Potassium [Moles/Vol] 4.2 mmol/L Normal 3.5-5.1 [facility] Comment on above: Performed By: #### C MP ####[facility] Lqfsjbqpzx1902 [place] [address]Dr. Antonella Medrano Protein [Mass/Vol] 5.9 g/dL Critically low 6.4-8.2 [facility] Comment on above: Performed By: #### C MP ####[facility] Kqeeujrjdb3191 [place] [address]Dr. Antonella Medrano Sodium [Moles/Vol] 142 mmol/L Normal 136-145 [facility] Comment on above: Performed By: #### C MP ####[facility] Pafgypasca1673 [place] [address]Dr. Antonella Medrano Urea nitrogen [Mass/Vol] 21.0 mg/dL Critically high 7.0-18.0 [facility] Comment on above: Performed By: #### C MP ####[facility] Dtssncmjea4311 [place] [address]Dr. Antonella Mitchell Urea nitrogen/Creatinine [Mass ratio] 25.3 mg/mg Normal [facility] Comment on above: Performed By: #### C MP ####[facility] Dhzwyyzbql0825 [place] [address]Dr. Antonella Mitchell URINE MICROSCOPIC ONLYon BACTERIA TRACE Abnormal NONE SEEN [facility] Comment on above: Performed By: #### Daniela LEE UMICRO ####[facility] Cfihfltzsr24[address] [place], [place] [address]Dr. Antonella Medrano Bacteria identified Cx Nom (U) INDICATED Normal [facility] Comment on above: Performed By: #### HEAVENLY CLARKICRO ####[facility] Zcvqvvkkib9[address] [place], [place] [address]Dr. Antonella Medrano CAST NONE SEEN Normal NONE SEEN [facility] Comment on above: Performed By: #### Daniela LEE UMICRO ####[facility] Pajvosedsl[address] [place], [place] [address]Dr. Antonella Medrano Crystals LM Nom (Urine sed) NONE SEEN Normal NONE SEEN [facility] Comment on above: Performed By: #### Daniela LEE UMICRO ####[facility] Cebgqyrpkc163[address] [place], [place] [address]Dr. Antonella Medrano Epithelial cells LM Ql (Urine sed) RARE Normal NONE SEEN /RARE [facility] Comment on above: Performed By: #### Daniela LEE ICRO ####[facility] Jajekeuroi85[address] [place], [place] [address]Dr. Antonella Medrano MUCOUS NONE SEEN Normal NONE SEEN [facility] Comment on above: Performed By: #### LATA CLARKRO ####[facility] Efayzszrqn9[address] [place], [place] [address]Dr. Antonella Medrano RBC 2-5 Abnormal 0-2 [facility] Comment on above: Performed By: #### LATA CLARKRO ####[facility] Hnozrckdbe599[address] [place], [place] [address]Dr. Antonella Medrano WBC 10-20 Abnormal NONE SEEN [facility] Comment on above: Performed By: #### LATA CLARKRO ####[facility] Mnkbapquhc13[address] [place], [place] [address]Dr. Antonella Medrano CBC AUTO DIFFon 11-13-2022 BASO # 0.0 103/ul Normal 0.0-0.1 [facility] Comment on above: Performed By: #### C BC ####[facility] Zzrphpxhnz5893 [place] [phone]. Antonella Medrano Basophils/100 WBC (Bld) 0.4 % Normal 0.2-2.0 [facility] Comment on above: Performed By: #### C BC ####[facility] Mezfbdxdcw2092 [place] [phone]. Antonella Medrano EO # 0.3 103/ul Normal 0.0-0.7 [facility] Comment on above: Performed By: #### C BC ####[facility] Ajatytkizs[address] [place], [place] [address]Dr. Antonella Medrano Eosinophils/100 WBC (Bld) 3.2 % Normal 0.9-7.0 [facility] Comment on above: Performed By: #### C BC ####[facility] Awfwtzskgd69[address] [place], [place] [address]Dr. Antonella Medrano Erythrocyte distribution width (RBC) [Ratio] 13.0 % Normal 11.0-15.0 [facility] Comment on above: Performed By: #### C BC ####[facility] Xxduvibbsb[address] [place], [place] [address]Dr. Antonella Medrano Hematocrit (Bld) [Volume fraction] 39.4 % Normal 36.0-48.0 [facility] Comment on above: Performed By: #### C BC ####[facility] Swqnngwooj8817 [place] [phone]. Antonella Medrano Hemoglobin (Bld) [Mass/Vol] 13.3 g/dL Normal 12.0-16.0 [facility] Comment on above: Performed By: #### C BC ####[facility] Bodvpnycbs8576 [place] [phone]. Antonella Medrano IG # 0.08 10e3/ul Critically high 0.00-0.03 [facility] Comment on above: Performed By: #### C BC ####[facility] Xijvgsiogm[address] [place], [place] [address]Dr. Antonella Medrano IG % 0.9 % Critically high 0.0-0.5 [facility] Comment on above: Performed By: #### C BC ####[facility] Uuyowlbiok7037 [place] [phone]. Antonella Medrano LYMPH # 1.6 103/ul Normal 1.2-3.8 [facility] Comment on above: Performed By: #### C BC ####[facility] Zpiuyrrera7430 [place], [place] [address]Wr. Antonella Medrano Lymphocytes/100 WBC (Bld) 18.7 % Critically low 20.5-60.0 [facility] Comment on above: Performed By: #### C BC ####[facility] Auungspavs0629 [place] [phone]. Antonella Medrano MANUAL DIFF REQ NO Normal [facility] Comment on above: Performed By: #### C BC ####[facility] Hqefnnmams0916 [place] [phone]. Antonella Mitchell MCH (RBC) [Entitic mass] 28.9 pg Normal 26.7-34.0 [facility] Comment on above: Performed By: #### C BC ####[facility] Qirxqrifkj1347 [place] [phone]. Antonella Medrano MCHC (RBC) [Mass/Vol] 33.8 g/dL Normal 29.9-35.2 [facility] Comment on above: Performed By: #### C BC ####[facility] Nwvbjmfsum8639 [place] [phone]. Antonella Medrano MCV (RBC) [Entitic vol] 85.7 fL Normal 81.0-99.0 [facility] Comment on above: Performed By: #### C BC ####[facility] Llfxjcsmij5167 [place] [phone]. Antonella Medrano MONO # 0.9 103/ul Critically high 0.3-0.8 [facility] Comment on above: Performed By: #### C BC ####[facility] Dkshzdprfz9196 [place] [phone]. Antonella Mitchell Monocytes/100 WBC (Bld) 10.4 % Normal 1.7-12.0 [facility] Comment on above: Performed By: #### C BC ####[facility] Yzdqchyryg5848 [place] [phone]. Antonella Medrano NEUT # 5.7 103/ul Normal 1.4-6.5 [facility] Comment on above: Performed By: #### C BC ####[facility] Njnwlxfhgq2657 [place] [phone]. Antonella Medrano Neutrophils/100 WBC (Bld) 66.4 % Normal 43.0-75.0 [facility] Comment on above: Performed By: #### C BC ####[facility] Piixuwlpje5860 [place] [phone]. Antonella Medrano Platelet mean volume (Bld) [Entitic vol] 10.8 fL Normal 9.5-13.5 [facility] Comment on above: Performed By: #### C BC ####[facility] Xvmkiyghdq8389 [place] [phone]. Antonella Medrano PLT 255 103/ul Normal 150-450 [facility] Comment on above: Performed By: #### C BC ####[facility] Wbkivpgcjf4487 [place] [phone]. Antonella Medrano RBC 4.60 106/ul Normal 4.20-5.40 [facility] Comment on above: Performed By: #### C BC ####[facility] Jjlgurmggr0722 [place] [phone]. Antonella Medrano WBC 8.6 103/ul Normal 4.0-11.0 [facility] Comment on above: Performed By: #### C BC ####[facility] Arhqwwhypl6377 [place] [phone]. Antonella Medrano POINT OF CARE GLUCOSEon -2 Glucose [Mass/Vol] 317 mg/dL Critically high 74-106 [facility] Comment on above: Performed By: #### P OCGLUC ####[facility] Crykswslsg2601 [place] [phone]. Antonella Medrano Glucose [Mass/Vol] 328 mg/dL Critically high 74-106 [facility] Comment on above: Performed By: #### P OCGLUC ####[facility] Jsbuhzfsej2011 [place] [phone]. Antonella Medrano Glucose [Mass/Vol] 234 mg/dL Critically high 74-106 [facility] Comment on above: Performed By: #### P OCGLUC ####[facility] Ggcnttrnpw7690 [place] [phone]. Antonella Medrano Glucose [Mass/Vol] 343 mg/dL Critically high 74-106 [facility] Comment on above: Performed By: #### P OCGLUC ####[facility] Mahibchedd3717 [place] [phone]. Antonella Medrano Glucose [Mass/Vol] 284 mg/dL Critically high 74-106 [facility] Comment on above: Performed By: #### P OCGLUC ####[facility] Przwnwagyo6533 [place] [address]Dr. Mariafilemon Medrano PROF 14(COMP METB)on 023 Albumin [Mass/Vol] 2.5 g/dL Critically low 3.4-5.0 [facility] Comment on above: Performed By: #### C MP ####[facility] Yxrwqthujm7457 [place] [address]Dr. Antonella Mitchell Albumin/Globulin [Mass ratio] 0.9 {ratio} Normal [facility] Comment on above: Performed By: #### C MP ####[facility] [address] [place] [address]Dr. Antonella Mitchell ALP [Catalytic activity/Vol] 121 U/L Critically high 46-116 [facility] Comment on above: Performed By: #### C MP ####[facility] Kpextqjpsi24[address] [place] [phone]. Antonella Mitchell ALT [Catalytic activity/Vol] 19 U/L Normal 14-59 [facility] Comment on above: Performed By: #### C MP ####[facility] Ubbzbxmlen9[address] [place] [phone]. Antonella Mitchell Anion gap [Moles/Vol] 11.0 mmol/L Normal [facility] Comment on above: Performed By: #### C MP ####[facility] Sgsywpauku3440 [place] [phone]. Antonella Medrano AST [Catalytic activity/Vol] 19 U/L Normal 15-37 [facility] Comment on above: Performed By: #### C MP ####[facility] Rvhbnkxdvf8168 [place] [phone]. Antonella Medrano Bilirubin [Mass/Vol] 0.3 mg/dL Normal 0.2-1.0 [facility] Comment on above: Performed By: #### C MP ####[facility] Hbmmckrrlt6175 [place] [phone]. Antonella Medrano Calcium [Mass/Vol] 8.8 mg/dL Normal 8.5-10.1 [facility] Comment on above: Performed By: #### C MP ####[facility] Ljptceelhg4083 [place] [phone]. Antonella Medrano Chloride [Moles/Vol] 103 mmol/L Normal 98-107 [facility] Comment on above: Performed By: #### C MP ####[facility] Ibkqzuyrcg4670 [place] [phone]. Antonella Medrano CO2 [Moles/Vol] 27.2 mmol/L Normal 21.0-32.0 [facility] Comment on above: Performed By: #### C MP ####[facility] Ojownnwqqg3805 [place] [phone]. Antonella Medrano Creatinine [Mass/Vol] 0.58 mg/dL Normal 0.55-1.02 [facility] Comment on above: Performed By: #### C MP ####[facility] Jhnrwyyuor4866 [place] [phone]. Antonella Medrano EGFR-AF MEXICAN >60 Normal >=60 [facility] Comment on above: Performed By: #### C MP ####[facility] Jzppfepfor2391 [place] [phone]. Antonella Medrano EGFR-NON AF MEXICAN >60 Normal >=60 [facility] Comment on above: Performed By: #### C MP ####[facility] Cbsaeulwqm[address] [place], [place] [id number]. Antonella Medrano Globulin (S) [Mass/Vol] 2.7 g/dL Normal [facility] Comment on above: Performed By: #### C MP ####[facility] Qcptldwdcz238[address] [place], [place] [address]Dr. Antonella Medrano Glucose [Mass/Vol] 245 mg/dL Critically high 74-106 [facility] Comment on above: Performed By: #### C MP ####[facility] Uxwbnrnitu30[address] [place], [place] [address]Dr. Antonella Medrano Potassium [Moles/Vol] 4.2 mmol/L Normal 3.5-5.1 [facility] Comment on above: Performed By: #### C MP ####[facility] Ihgpvgcatr83[address] [place], [place] [address]Dr. Antonella Medrano Protein [Mass/Vol] 5.2 g/dL Critically low 6.4-8.2 [facility] Comment on above: Performed By: #### C MP ####[facility] Kvfuyaimaz76[address] [place], [place] [address]Dr. Antonelal Medrano Sodium [Moles/Vol] 137 mmol/L Normal 136-145 [facility] Comment on above: Performed By: #### C MP ####[facility] Tduktcheni747[address] [place], [place] [address]Dr. Antonella Medrano Urea nitrogen [Mass/Vol] 24.0 mg/dL Critically high 7.0-18.0 [facility] Comment on above: Performed By: #### C MP ####[facility] Jwvgqjkoqz460[address] [place], [place] [address]Dr. Antonella Mitchell Urea nitrogen/Creatinine [Mass ratio] 41.4 mg/mg Normal [facility] Comment on above: Performed By: #### C MP ####[facility] Mdghgsxdbk775[address] [place], [place] [address]Dr. Antonella Mitchell CBC AUTO DIFFon 11-12-2022 BASO # 0.0 103/ul Normal 0.0-0.1 [facility] Comment on above: Performed By: #### C BC ####[facility] Xecbsdiukg713[address] [place], [place] [id number]. Antonella Medrano Basophils/100 WBC (Bld) 0.5 % Normal 0.2-2.0 [facility] Comment on above: Performed By: #### C BC ####[facility] Avcwxycdjy39[address] [place] [address]Dr. Antonella Medrano EO # 0.3 103/ul Normal 0.0-0.7 [facility] Comment on above: Performed By: #### C BC ####[facility] Ritrwjynye403[address] [place], [place] [address]Dr. Antonella Medrano Eosinophils/100 WBC (Bld) 3.5 % Normal 0.9-7.0 [facility] Comment on above: Performed By: #### C BC ####[facility] Naqvpdzqaj539[address] [place], [place] [address]Dr. Antonella Medrano Erythrocyte distribution width (RBC) [Ratio] 13.1 % Normal 11.0-15.0 [facility] Comment on above: Performed By: #### C BC ####[facility] Lnyedkbwdl860[address] [place], [place] [address]Dr. Antonella Medrano Hematocrit (Bld) [Volume fraction] 39.4 % Normal 36.0-48.0 [facility] Comment on above: Performed By: #### C BC ####[facility] Yhgjpbxnug645[address] [place], [place] [address]Dr. Antonella Medrano Hemoglobin (Bld) [Mass/Vol] 13.3 g/dL Normal 12.0-16.0 [facility] Comment on above: Performed By: #### C BC ####[facility] Oysyychjtg709[address] [place], [place] [address]Dr. Antonella Medrano IG # 0.11 10e3/ul Critically high 0.00-0.03 [facility] Comment on above: Performed By: #### C BC ####[facility] Qjjzecpyrg8[address] [place], [place] [address]Dr. Antonella Medrano IG % 1.3 % Critically high 0.0-0.5 [facility] Comment on above: Performed By: #### C BC ####[facility] Infqvtmejq74[address] [place] [phone]. Antonella Mitchell LYMPH # 2.0 103/ul Normal 1.2-3.8 [facility] Comment on above: Performed By: #### C BC ####[facility] Cysfnmfpmy6071 [place] [phone]. Antonella Mitchell Lymphocytes/100 WBC (Bld) 22.9 % Normal 20.5-60.0 [facility] Comment on above: Performed By: #### C BC ####[facility] Fusrjodolw06[address] [place] [address]Dr. Mariafilemon Medrano MANUAL DIFF REQ NO Normal [facility] Comment on above: Performed By: #### C BC ####[facility] Wfrwnsbshf2152 [place] [address]Dr. Antonella Mitchell MCH (RBC) [Entitic mass] 29.2 pg Normal 26.7-34.0 [facility] Comment on above: Performed By: #### C BC ####[facility] Srfgsydftw4979 [place] [address]Dr. Antonella Mitchell MCHC (RBC) [Mass/Vol] 33.8 g/dL Normal 29.9-35.2 [facility] Comment on above: Performed By: #### C BC ####[facility] Cvxbkaroxk8[address] [place] [address]Dr. Antonella Mitchell MCV (RBC) [Entitic vol] 86.6 fL Normal 81.0-99.0 [facility] Comment on above: Performed By: #### C BC ####[facility] Ilgbmyliwy5428 [place] [address]Dr. Mariafilemon Medrano MONO # 0.8 103/ul Normal 0.3-0.8 [facility] Comment on above: Performed By: #### C BC ####[facility] Lejvanscvt9[address] [place] [address]Dr. Mariafilemon Medrano Monocytes/100 WBC (Bld) 9.2 % Normal 1.7-12.0 [facility] Comment on above: Performed By: #### C BC ####[facility] Wdwmniyvpr6936 [place] [address]Dr. Antonella Medrano NEUT # 5.4 103/ul Normal 1.4-6.5 [facility] Comment on above: Performed By: #### C BC ####[facility] Dzqtbmfdzj3199 [place] [address]Dr. Antonella Medrano Neutrophils/100 WBC (Bld) 62.6 % Normal 43.0-75.0 [facility] Comment on above: Performed By: #### C BC ####[facility] Xjcteoysoh6720 [place] [address]Dr. Antonella Medrano Platelet mean volume (Bld) [Entitic vol] 10.8 fL Normal 9.5-13.5 [facility] Comment on above: Performed By: #### C BC ####[facility] Bviyhegtzf66[address] [place] [address]Dr. Antonella Medrano PLT 247 103/ul Normal 150-450 [facility] Comment on above: Performed By: #### C BC ####[facility] Nartplyrba56[address] [place], [place] [address]Dr. Antonella Medrano RBC 4.55 106/ul Normal 4.20-5.40 [facility] Comment on above: Performed By: #### C BC ####[facility] Xcsbvwbilk04[address] [place], [place] [address]Dr. Antonella Medrano WBC 8.6 103/ul Normal 4.0-11.0 [facility] Comment on above: Performed By: #### C BC ####[facility] Rtqjbyoihi37[address] [place], [place] [address]Dr. Antonella Medrano POINT OF CARE GLUCOSEon 02-2 0-2022 Glucose [Mass/Vol] 299 mg/dL Critically high 74-106 [facility] Comment on above: Performed By: #### P OCGLUC ####[facility] Nfyzwsunts0916[address] [place], [place] [address]Dr. Antonella Medrano Glucose [Mass/Vol] 232 mg/dL Critically high 74-106 [facility] Comment on above: Performed By: #### P OCGLUC ####[facility] Zvwbdfxuap312[address] [place], [place] [address]Dr. Antonella Medrano PROF 14(COMP METB)on 023 Albumin [Mass/Vol] 2.4 g/dL Critically low 3.4-5.0 [facility] Comment on above: Performed By: #### C MP ####[facility] Onrfxdctis6475 [place] [address]Dr. Antonella Medrano Albumin/Globulin [Mass ratio] 0.8 {ratio} Normal [facility] Comment on above: Performed By: #### C MP ####[facility] Kjgdugulzc489[address] [place], [place] [address]Dr. Antonella Medrano ALP [Catalytic activity/Vol] 115 U/L Normal 46-116 [facility] Comment on above: Performed By: #### C MP ####[facility] Kolszgplvb69[address] [place], [place] [address]Dr. Antonella Medrano ALT [Catalytic activity/Vol] 15 U/L Normal 14-59 [facility] Comment on above: Performed By: #### C MP ####[facility] Gotchhtowj103[address] [place], [place] [address]Dr. Antonella Medrano Anion gap [Moles/Vol] 11.2 mmol/L Normal [facility] Comment on above: Performed By: #### C MP ####[facility] Lzybfyouii1907[address] [place], [place] [address]Dr. Antonella Medrano AST [Catalytic activity/Vol] 17 U/L Normal 15-37 [facility] Comment on above: Performed By: #### C MP ####[facility] Imoxwdtrcg55[address] [place], [place] [address]Dr. Antonella Medrano Bilirubin [Mass/Vol] 0.3 mg/dL Normal 0.2-1.0 [facility] Comment on above: Performed By: #### C MP ####[facility] Jtwpmoxrmw304[address] [place], [place] [address]Dr. Antonella Medrano Calcium [Mass/Vol] 8.6 mg/dL Normal 8.5-10.1 [facility] Comment on above: Performed By: #### C MP ####[facility] Ppimtchxur5976 [place] [address]Dr. Antonella Medrano Chloride [Moles/Vol] 104 mmol/L Normal 98-107 [facility] Comment on above: Performed By: #### C MP ####[facility] Wytfrtomvi599[address] [place], [place] [address]Dr. Antonella Medrano CO2 [Moles/Vol] 26.0 mmol/L Normal 21.0-32.0 [facility] Comment on above: Performed By: #### C MP ####[facility] Naxbwhonei549[address] [place], [place] [address]Dr. Antonella Mitchell Creatinine [Mass/Vol] 0.62 mg/dL Normal 0.55-1.02 [facility] Comment on above: Performed By: #### C MP ####[facility] Xxliwtzvtw401[address] [place], [place] [address]Dr. Antonella Mitchell EGFR-AF MEXICAN >60 Normal >=60 [facility] Comment on above: Performed By: #### C MP ####[facility] Albhiiuhon1545[address] [place], [place] [address]Dr. Antonella Mitchell EGFR-NON AF MEXICAN >60 Normal >=60 [facility] Comment on above: Performed By: #### C MP ####[facility] Hcuhrhdktl27[address] [place], [place] [address]Dr. Antonella Mitchell Globulin (S) [Mass/Vol] 3.0 g/dL Normal [facility] Comment on above: Performed By: #### C MP ####[facility] Ujmvtlobyk40[address] [place], [place] [address]Dr. Antonella Mitchell Glucose [Mass/Vol] 223 mg/dL Critically high 74-106 [facility] Comment on above: Performed By: #### C MP ####[facility] Wfsucvpydb0440[address] [place], [place] [address]Dr. Mariafilemon Mitchell Potassium [Moles/Vol] 4.2 mmol/L Normal 3.5-5.1 [facility] Comment on above: Performed By: #### C MP ####[facility] Dgtqhsvrus1824[address] [place], [place] [address]Dr. Antonella Medrano Protein [Mass/Vol] 5.4 g/dL Critically low 6.4-8.2 [facility] Comment on above: Performed By: #### C MP ####[facility] Jgoxvttkou105[address] [place], [place] [address]Dr. Antonella Medrano Sodium [Moles/Vol] 137 mmol/L Normal 136-145 [facility] Comment on above: Performed By: #### C MP ####[facility] Xcphyzjnho358[address] [place], [place] [address]Dr. Antonella Medrano Urea nitrogen [Mass/Vol] 20.0 mg/dL Critically high 7.0-18.0 [facility] Comment on above: Performed By: #### C MP ####[facility] Hnnoqmmsck7[address] [place], [place] [address]Dr. Antonella Mitchell Urea nitrogen/Creatinine [Mass ratio] 32.3 mg/mg Normal [facility] Comment on above: Performed By: #### C MP ####[facility] Bmyoljisyv612[address] [place], [place] [address]Dr. Antonella Mitchell CBC AUTO DIFFon 11-11-2022 BASO # 0.0 103/ul Normal 0.0-0.1 [facility] Comment on above: Performed By: #### C BC ####[facility] Iusearmjez2414[address] [place], [place] [address]Dr. Antonella Mitchell Basophils/100 WBC (Bld) 0.5 % Normal 0.2-2.0 [facility] Comment on above: Performed By: #### C BC ####[facility] Pdeddxkfzo9560[address] [place], [place] [address]Dr. Antonella Mitchell EO # 0.3 103/ul Normal 0.0-0.7 [facility] Comment on above: Performed By: #### C BC ####[facility] Guxwshxffg229[address] [place], [place] [address]Dr. Mariafilemon Medrano Eosinophils/100 WBC (Bld) 3.4 % Normal 0.9-7.0 [facility] Comment on above: Performed By: #### C BC ####[facility] Rllzhxmkkp0922[address] [place], [place] [address]Dr. Antonella Medrano Erythrocyte distribution width (RBC) [Ratio] 13.3 % Normal 11.0-15.0 [facility] Comment on above: Performed By: #### C BC ####[facility] Ojbhfrjpyl33[address] [place] [address]Dr. Antonella Medrano Hematocrit (Bld) [Volume fraction] 38.2 % Normal 36.0-48.0 [facility] Comment on above: Performed By: #### C BC ####[facility] Jbevocutpx0436[address] [place], [place] [address]Dr. Antonella Medrano Hemoglobin (Bld) [Mass/Vol] 12.5 g/dL Normal 12.0-16.0 [facility] Comment on above: Performed By: #### C BC ####[facility] Alcabjispm664[address] [place], [place] [address]Dr. Antonella Medrano IG # 0.10 10e3/ul Critically high 0.00-0.03 [facility] Comment on above: Performed By: #### C BC ####[facility] Uglkakognv647[address] [place], [place] [address]Dr. Antonella Medrano IG % 1.2 % Critically high 0.0-0.5 [facility] Comment on above: Performed By: #### C BC ####[facility] Iukcfpdpxe4050[address] [place], [place] [address]Dr. Antonella Mitchell LYMPH # 1.9 103/ul Normal 1.2-3.8 [facility] Comment on above: Performed By: #### C BC ####[facility] Qafnidkefg755[address] [place], [place] [address]Dr. Mariafilemon Medrano Lymphocytes/100 WBC (Bld) 23.1 % Normal 20.5-60.0 [facility] Comment on above: Performed By: #### C BC ####[facility] Etrpynelap[address] [place], [place] [address]Dr. Mariafilemon Medrano MANUAL DIFF REQ NO Normal [facility] Comment on above: Performed By: #### C BC ####[facility] Htxxhzfmle9838[address] [place], [place] [address]Dr. Antonella Medrano MCH (RBC) [Entitic mass] 28.7 pg Normal 26.7-34.0 [facility] Comment on above: Performed By: #### C BC ####[facility] Yuhwccoxlp4664 [place] [address]Dr. Antonella Medrano MCHC (RBC) [Mass/Vol] 32.7 g/dL Normal 29.9-35.2 [facility] Comment on above: Performed By: #### C BC ####[facility] Kwzpugruxi723[address] [place], [place] [address]Dr. Antonella Mitchell MCV (RBC) [Entitic vol] 87.6 fL Normal 81.0-99.0 [facility] Comment on above: Performed By: #### C BC ####[facility] Sizlnvjzjo24[address] [place], [place] [address]Dr. Antonella Medrano MONO # 0.8 103/ul Normal 0.3-0.8 [facility] Comment on above: Performed By: #### C BC ####[facility] Edqzzibrgj88[address] [place], [place] [address]Dr. Antonella Medrano Monocytes/100 WBC (Bld) 9.8 % Normal 1.7-12.0 [facility] Comment on above: Performed By: #### C BC ####[facility] Lafzqhymre34[address] [place], [place] [address]Dr. Mariafilemon Mitchell NEUT # 5.1 103/ul Normal 1.4-6.5 [facility] Comment on above: Performed By: #### C BC ####[facility] Ranatpvtmt822[address] [place], [place] [address]Dr. Antonella Medrano Neutrophils/100 WBC (Bld) 62.0 % Normal 43.0-75.0 [facility] Comment on above: Performed By: #### C BC ####[facility] Vyhouttaqa8626[address] [place], [place] [address]Dr. Antonella Medrano Platelet mean volume (Bld) [Entitic vol] 11.1 fL Normal 9.5-13.5 [facility] Comment on above: Performed By: #### C BC ####[facility] Zfktsqkkgl27[address] [place] [address]Dr. Antonella Medrano PLT 251 103/ul Normal 150-450 [facility] Comment on above: Performed By: #### C BC ####[facility] Ampcxsxnju6824 [place] [address]Dr. Antonella Medrano RBC 4.36 106/ul Normal 4.20-5.40 [facility] Comment on above: Performed By: #### C BC ####[facility] Ywzsmpgecq7318 [place] [address]Dr. Antonella Medrano WBC 8.2 103/ul Normal 4.0-11.0 [facility] Comment on above: Performed By: #### C BC ####[facility] Ggplyqjqej095[address] [place], [place] [address]Dr. Antonlela Mitchell POINT OF CARE GLUCOSEon 10-24 Glucose [Mass/Vol] 282 mg/dL Critically high 74-106 [facility] Comment on above: Performed By: #### P OCGLUC ####[facility] Wwlgyhkvvf25[address] [place], [place] [address]Dr. Antonella Medrano Glucose [Mass/Vol] 269 mg/dL Critically high 74-106 [facility] Comment on above: Performed By: #### P OCGLUC ####[facility] Xrswsfdzvg313[address] [place], [place] [address]Dr. Antonella Medrano Glucose [Mass/Vol] 255 mg/dL Critically high 74-106 [facility] Comment on above: Performed By: #### P OCGLUC ####[facility] Asjxkwudcn8465[address] [place], [place] [address]Dr. Antonella Mitchell PROF 14(COMP METB)on 023 Albumin [Mass/Vol] 2.2 g/dL Critically low 3.4-5.0 [facility] Comment on above: Performed By: #### C MP ####[facility] Dznewwjold2764 [place] [address]Dr. Antonella Medrano Albumin/Globulin [Mass ratio] 0.7 {ratio} Normal [facility] Comment on above: Performed By: #### C MP ####[facility] Whogxusgqn6862 [place] [address]Dr. Antonella Medrano ALP [Catalytic activity/Vol] 129 U/L Critically high 46-116 [facility] Comment on above: Performed By: #### C MP ####[facility] Iznvyrdwnh3441 [place] [address]Dr. Antonella Medrano ALT [Catalytic activity/Vol] 14 U/L Normal 14-59 [facility] Comment on above: Performed By: #### C MP ####[facility] Zwqpigxhzg245[address] [place], [place] [address]Dr. Antonella Medrano Anion gap [Moles/Vol] 10.6 mmol/L Normal [facility] Comment on above: Performed By: #### C MP ####[facility] Rhkfrjhbfh1769[address] [place], [place] [address]Dr. Antonella Medrano AST [Catalytic activity/Vol] 11 U/L Critically low 15-37 [facility] Comment on above: Performed By: #### C MP ####[facility] Mkomoxxypk517[address] [place], [place] [address]Dr. Antonella Medrano Bilirubin [Mass/Vol] 0.3 mg/dL Normal 0.2-1.0 [facility] Comment on above: Performed By: #### C MP ####[facility] Qhvnxmxlpg79[address] [place], [place] [address]Dr. Antonella Medrano Calcium [Mass/Vol] 8.4 mg/dL Critically low 8.5-10.1 [facility] Comment on above: Performed By: #### C MP ####[facility] Keryodbvrc9944[address] [place], [place] [address]Dr. Antonella Mitchell Chloride [Moles/Vol] 105 mmol/L Normal 98-107 [facility] Comment on above: Performed By: #### C MP ####[facility] Ominbgonxm4364[address] [place], [place] [address]Dr. Antonella Mitchell CO2 [Moles/Vol] 25.1 mmol/L Normal 21.0-32.0 [facility] Comment on above: Performed By: #### C MP ####[facility] Mzzprvhskn8[address] [place], [place] [address]Dr. Mariafilemon Medrano Creatinine [Mass/Vol] 0.70 mg/dL Normal 0.55-1.02 [facility] Comment on above: Performed By: #### C MP ####[facility] Guggdmsuau[address] [place] [address]Dr. Antonella Mitchell EGFR-AF MEXICAN >60 Normal >=60 [facility] Comment on above: Performed By: #### C MP ####[facility] Wkcihfkyxv32[address] [place] [address]Dr. Antonella Medrano EGFR-NON AF MEXICAN >60 Normal >=60 [facility] Comment on above: Performed By: #### C MP ####[facility] Bdzxjnwhel768[address] [place], [place] [address]Dr. Antonella Medrano Globulin (S) [Mass/Vol] 3.1 g/dL Normal [facility] Comment on above: Performed By: #### C MP ####[facility] Pavndbihib725[address] [place], [place] [address]Dr. Antonella Medrano Glucose [Mass/Vol] 275 mg/dL Critically high 74-106 [facility] Comment on above: Performed By: #### C MP ####[facility] Sxfyqulvgp335[address] [place], [place] [address]Dr. Antonella Medrano Potassium [Moles/Vol] 4.7 mmol/L Normal 3.5-5.1 [facility] Comment on above: Performed By: #### C MP ####[facility] Zthxzucibi026[address] [place], [place] [address]Dr. Antonella Medrano Protein [Mass/Vol] 5.3 g/dL Critically low 6.4-8.2 [facility] Comment on above: Performed By: #### C MP ####[facility] Mzfcbwfguf[address] [place], [place] [address]Dr. Antonella Medrano Sodium [Moles/Vol] 136 mmol/L Normal 136-145 [facility] Comment on above: Performed By: #### C MP ####[facility] Qjlilkdlvy[address] [place], [place] [address]Dr. Antonella Medrano Urea nitrogen [Mass/Vol] 27.0 mg/dL Critically high 7.0-18.0 [facility] Comment on above: Performed By: #### C MP ####[facility] Juiwkragsm12[address] [place], [place] [address]Dr. Antonella Medrano Urea nitrogen/Creatinine [Mass ratio] 38.6 mg/mg Normal [facility] Comment on above: Performed By: #### C MP ####[facility] Iotyeqpmvg[address] [place], [place] [address]DrGerman Medrano CBC AUTO DIFFon 11-10-2022 BASO # 0.1 103/ul Normal 0.0-0.1 [facility] Comment on above: Performed By: #### C BC ####[facility] Twpgytjnjd48[address] [place], [place] [address]DrGerman Medrano Basophils/100 WBC (Bld) 0.6 % Normal 0.2-2.0 [facility] Comment on above: Performed By: #### C BC ####[facility] Pqxcpejjjx88[address] [place], [place] [address]DrGerman Medrano EO # 0.3 103/ul Normal 0.0-0.7 [facility] Comment on above: Performed By: #### C BC ####[facility] Tgwvnhxmvy617[address] [place], [place] [address]DrGerman Medrano Eosinophils/100 WBC (Bld) 3.4 % Normal 0.9-7.0 [facility] Comment on above: Performed By: #### C BC ####[facility] Oynvqaybku664[address] [place], [place] [address]DrGerman Medrano Erythrocyte distribution width (RBC) [Ratio] 13.3 % Normal 11.0-15.0 [facility] Comment on above: Performed By: #### C BC ####[facility] Fnpbqwnkdn5801[address] [place], [place] [address]DrGerman Medrano Hematocrit (Bld) [Volume fraction] 39.8 % Normal 36.0-48.0 [facility] Comment on above: Performed By: #### C BC ####[facility] Wrepfimnne3035[address] [place], [place] [address]Dr. Antonella Medrano Hemoglobin (Bld) [Mass/Vol] 13.2 g/dL Normal 12.0-16.0 [facility] Comment on above: Performed By: #### C BC ####[facility] I[address]qerpcqk52[address] [place] [address]Dr. Antonella Medrano IG # 0.11 10e3/ul Critically high 0.00-0.03 [facility] Comment on above: Performed By: #### C BC ####[facility] Ynlhprttyd4580[address] [place], [place] [address]Dr. Antonella Medrano IG % 1.3 % Critically high 0.0-0.5 [facility] Comment on above: Performed By: #### C BC ####[facility] Zsvnalywvm9[address] [place], [place] [address]DrGerman Medrano LYMPH # 1.8 103/ul Normal 1.2-3.8 [facility] Comment on above: Performed By: #### C BC ####[facility] Uvpymyrzoc859[address] [place], [place] [address]Dr. Antonella Medrano Lymphocytes/100 WBC (Bld) 22.0 % Normal 20.5-60.0 [facility] Comment on above: Performed By: #### C BC ####[facility] Sppraqrqov630[address] [place], [place] [address]DrGerman Medrano MANUAL DIFF REQ NO Normal [facility] Comment on above: Performed By: #### C BC ####[facility] Ukyznkgdtu9067[address] [place], [place] [address]DrGerman Medrano MCH (RBC) [Entitic mass] 29.3 pg Normal 26.7-34.0 [facility] Comment on above: Performed By: #### C BC ####[facility] Qiuaadhtpn657261 [address] [place], [place] [address]Dr. Antonella Medrano MCHC (RBC) [Mass/Vol] 33.2 g/dL Normal 29.9-35.2 [facility] Comment on above: Performed By: #### C BC ####[facility] Ljvywmerjr8965[address] [place], [place] [address]DrGerman Medrano MCV (RBC) [Entitic vol] 88.2 fL Normal 81.0-99.0 [facility] Comment on above: Performed By: #### C BC ####[facility] Vchjrmrobq6518[address] [place], [place] [address]DrGerman Antonella Medrano MONO # 0.9 103/ul Critically high 0.3-0.8 [facility] Comment on above: Performed By: #### C BC ####[facility] Ziwkggmnmr4239[address] [place], [place] [address]DrGerman Antonella Medrano Monocytes/100 WBC (Bld) 11.0 % Normal 1.7-12.0 [facility] Comment on above: Performed By: #### C BC ####[facility] Hvroehsyqw513[address] [place], [place] [address]DrGerman Antonella Medrano NEUT # 5.0 103/ul Normal 1.4-6.5 [facility] Comment on above: Performed By: #### C BC ####[facility] Sexifanchk490261 [address] [place], [place] [address]DrGerman Antonella Mitchell Neutrophils/100 WBC (Bld) 61.7 % Normal 43.0-75.0 [facility] Comment on above: Performed By: #### C BC ####[facility] Alnsjlhlyc239[address] [place], [place] [address]DrGerman Antonella Medrano Platelet mean volume (Bld) [Entitic vol] 11.0 fL Normal 9.5-13.5 [facility] Comment on above: Performed By: #### C BC ####[facility] Ugcslswtxb9159[address] [place], [place] [address]Dr. Antonella Mitchell PLT 237 103/ul Normal 150-450 [facility] Comment on above: Performed By: #### C BC ####[facility] Gnhppqfzwo3611[address] [place], [place] [address]DrGerman Antonella Mitchell RBC 4.51 106/ul Normal 4.20-5.40 [facility] Comment on above: Performed By: #### C BC ####[facility] Nvamqgtezd7429[address] [place], [place] [address]DrGerman Medrano WBC 8.2 103/ul Normal 4.0-11.0 [facility] Comment on above: Performed By: #### C BC ####[facility] Ishobmjzkl[address] [place] [address]Dr. Antonella Medrano POINT OF CARE GLUCOSEon 10-24 Glucose [Mass/Vol] 255 mg/dL Critically high 74-106 [facility] Comment on above: Performed By: #### P OCGLUC ####[facility] Yjpvtfvbei7363 [place] [address]Dr. Antonella Medrano Glucose [Mass/Vol] 268 mg/dL Critically high 74-106 [facility] Comment on above: Performed By: #### P OCGLUC ####[facility] Mvrcafhzgk4420[address] [place], [place] [address]Dr. Antonella Medrano Glucose [Mass/Vol] 355 mg/dL Critically high 74-106 [facility] Comment on above: Performed By: #### P OCGLUC ####[facility] Yyowljycuv9768 [place] [address]Dr. Antonella Medrano Glucose [Mass/Vol] 318 mg/dL Critically high 74-106 [facility] Comment on above: Performed By: #### P OCGLUC ####[facility] Pmuohrukol643[address] [place], [place] [address]Dr. Antonella Medrano PROF 14(COMP METB)on 023 Albumin [Mass/Vol] 2.3 g/dL Critically low 3.4-5.0 [facility] Comment on above: Performed By: #### C MP ####[facility] Crjmmtizcp55[address] [place] [address]Dr. Antonella Medrano Albumin/Globulin [Mass ratio] 0.9 {ratio} Normal [facility] Comment on above: Performed By: #### C MP ####[facility] Btdcacfbsf879[address] [place], [place] [address]Dr. Antonella Medrano ALP [Catalytic activity/Vol] 153 U/L Critically high 46-116 [facility] Comment on above: Performed By: #### C MP ####[facility] Cdwjcjyhlj[address] [place] [address]Dr. Antonella Medrano ALT [Catalytic activity/Vol] 15 U/L Normal 14-59 [facility] Comment on above: Performed By: #### C MP ####[facility] Lbeimwpney84[address] [place] [address]Dr. Antonella Medrano Anion gap [Moles/Vol] 12.7 mmol/L Normal [facility] Comment on above: Performed By: #### C MP ####[facility] Ujyagiffwa260[address] [place], [place] [address]Dr. Antonella Mitchell AST [Catalytic activity/Vol] 14 U/L Critically low 15-37 [facility] Comment on above: Performed By: #### C MP ####[facility] Sdygbvnpjy880[address] [place], [place] [address]Dr. Antonella Mitchell Bilirubin [Mass/Vol] 0.3 mg/dL Normal 0.2-1.0 [facility] Comment on above: Performed By: #### C MP ####[facility] Aqagerjshj108[address] [place], [place] [address]Dr. Antonella Mitchell Calcium [Mass/Vol] 8.3 mg/dL Critically low 8.5-10.1 [facility] Comment on above: Performed By: #### C MP ####[facility] Ivqohlgomd304361 [address] [place], [place] [address]Dr. Antonella Medrano Chloride [Moles/Vol] 104 mmol/L Normal 98-107 [facility] Comment on above: Performed By: #### C MP ####[facility] Tloxlpjdtu2411[address] [place], [place] [address]DrGerman Antonella Mitchell CO2 [Moles/Vol] 23.8 mmol/L Normal 21.0-32.0 [facility] Comment on above: Performed By: #### C MP ####[facility] Goonedrobw880[address] [place], [place] [address]Dr. Antonella Mitchell Creatinine [Mass/Vol] 0.73 mg/dL Normal 0.55-1.02 [facility] Comment on above: Performed By: #### C MP ####[facility] Xpowpweboi2775[address] [place], [place] [address]Dr. Antonella Medrano EGFR-AF MEXICAN >60 Normal >=60 [facility] Comment on above: Performed By: #### C MP ####[facility] Umwmmpkzxh6[address] [place] [address]Dr. Antonella Medrano EGFR-NON AF MEXICAN >60 Normal >=60 [facility] Comment on above: Performed By: #### C MP ####[facility] Cwdfvsrawi65[address] [place] [id number]. Antonella Medrano Globulin (S) [Mass/Vol] 2.6 g/dL Normal [facility] Comment on above: Performed By: #### C MP ####[facility] Hvvixtzzdo6024 [place] [address]Dr. Antonella Medrano Glucose [Mass/Vol] 320 mg/dL Critically high 74-106 [facility] Comment on above: Performed By: #### C MP ####[facility] Elqpuwhbyc7028 [place] [address]Dr. Antonella Medrano Potassium [Moles/Vol] 4.5 mmol/L Normal 3.5-5.1 [facility] Comment on above: Performed By: #### C MP ####[facility] Zwzoizgkro901[address] [place], [place] [address]Dr. Antonella Medrano Protein [Mass/Vol] 4.9 g/dL Critically low 6.4-8.2 [facility] Comment on above: Performed By: #### C MP ####[facility] Jpvoerdcyj9978 [place] [address]Dr. Antonella Medrano Sodium [Moles/Vol] 136 mmol/L Normal 136-145 [facility] Comment on above: Performed By: #### C MP ####[facility] Icweefefed73[address] [place] [id number]. Antonella Medrano Urea nitrogen [Mass/Vol] 27.0 mg/dL Critically high 7.0-18.0 [facility] Comment on above: Performed By: #### C MP ####[facility] Evimenusvb830[address] [place], [place] [address]Dr. Antonella Mitchell Urea nitrogen/Creatinine [Mass ratio] 37.0 mg/mg Normal [facility] Comment on above: Performed By: #### C MP ####[facility] Xbulgpbszy549[address] [place], [place] [address]Dr. Antonella Medrano CBC AUTO DIFFon 11-09-2022 BASO # 0.0 103/ul Normal 0.0-0.1 [facility] Comment on above: Performed By: #### C BC ####[facility] Xoprduhfkm0817[address] [place], [place] [address]Dr. Antonella Medrano Basophils/100 WBC (Bld) 0.4 % Normal 0.2-2.0 [facility] Comment on above: Performed By: #### C BC ####[facility] Uryrxkabgp0316[address] [place], [place] [address]Dr. Antonella Medrano EO # 0.3 103/ul Normal 0.0-0.7 [facility] Comment on above: Performed By: #### C BC ####[facility] Pjedthypks726[address] [place], [place] [address]Dr. Antonella Medrano Eosinophils/100 WBC (Bld) 3.6 % Normal 0.9-7.0 [facility] Comment on above: Performed By: #### C BC ####[facility] Foxktqpcgu5725[address] [place], [place] [address]Dr. Antonella Medrano Erythrocyte distribution width (RBC) [Ratio] 13.1 % Normal 11.0-15.0 [facility] Comment on above: Performed By: #### C BC ####[facility] Upavrcmaer3422[address] [place], [place] [address]Dr. Antonella Medrano Hematocrit (Bld) [Volume fraction] 41.7 % Normal 36.0-48.0 [facility] Comment on above: Performed By: #### C BC ####[facility] Qavymcnxpv639[address] [place], [place] [address]Dr. Antonella Medrano Hemoglobin (Bld) [Mass/Vol] 13.8 g/dL Normal 12.0-16.0 [facility] Comment on above: Performed By: #### C BC ####[facility] Lzksrwzyct616[address] [place], [place] [address]DrGerman Medrano IG # 0.09 10e3/ul Critically high 0.00-0.03 [facility] Comment on above: Performed By: #### C BC ####[facility] Bdaixuuywt0887 [place] [address]DrGerman Medrano IG % 1.1 % Critically high 0.0-0.5 [facility] Comment on above: Performed By: #### C BC ####[facility] Ugpsrhvkzv9708 [place] [address]DrGerman Medrano LYMPH # 1.8 103/ul Normal 1.2-3.8 [facility] Comment on above: Performed By: #### C BC ####[facility] Jdtisnfmsc9644 [place] [address]DrGerman Medrano Lymphocytes/100 WBC (Bld) 21.2 % Normal 20.5-60.0 [facility] Comment on above: Performed By: #### C BC ####[facility] Jshhkqlekp10[address] [place], [place] [address]DrGerman Medrano MANUAL DIFF REQ NO Normal [facility] Comment on above: Performed By: #### C BC ####[facility] Hnveavctei6918[address] [place], [place] [address]DrGerman Medrano MCH (RBC) [Entitic mass] 28.7 pg Normal 26.7-34.0 [facility] Comment on above: Performed By: #### C BC ####[facility] Pmcnefwciv3410[address] [place], [place] [address]DrGerman Medrano MCHC (RBC) [Mass/Vol] 33.1 g/dL Normal 29.9-35.2 [facility] Comment on above: Performed By: #### C BC ####[facility] Fbhkatnnjy0756 [place] [address]DrGerman Medrano MCV (RBC) [Entitic vol] 86.7 fL Normal 81.0-99.0 [facility] Comment on above: Performed By: #### C BC ####[facility] Upgliizvhl5425[address] [place], [place] [address]DrGerman Medrano MONO # 0.9 103/ul Critically high 0.3-0.8 [facility] Comment on above: Performed By: #### C BC ####[facility] Xgbqhrkkxq0995 [place] [address]Dr. Antonella Medrano Monocytes/100 WBC (Bld) 10.9 % Normal 1.7-12.0 [facility] Comment on above: Performed By: #### C BC ####[facility] Iogoueonqh2392 [place] [address]Dr. Antonella Medrano NEUT # 5.2 103/ul Normal 1.4-6.5 [facility] Comment on above: Performed By: #### C BC ####[facility] Fcyxklqquv9116 [place] [address]Dr. Antonella Medrano Neutrophils/100 WBC (Bld) 62.8 % Normal 43.0-75.0 [facility] Comment on above: Performed By: #### C BC ####[facility] Revrgffici005[address] [place], [place] [address]Dr. Antonella Medrano Platelet mean volume (Bld) [Entitic vol] 10.6 fL Normal 9.5-13.5 [facility] Comment on above: Performed By: #### C BC ####[facility] Ynxydzqrdg759[address] [place], [place] [address]Dr. Antonella Medrano PLT 270 103/ul Normal 150-450 [facility] Comment on above: Performed By: #### C BC ####[facility] Twalcudpcq1320[address] [place], [place] [address]Dr. Antonella Medrano RBC 4.81 106/ul Normal 4.20-5.40 [facility] Comment on above: Performed By: #### C BC ####[facility] Rbhrybfvvg367[address] [place], [place] [address]Dr. Antonella Medrano WBC 8.3 103/ul Normal 4.0-11.0 [facility] Comment on above: Performed By: #### C BC ####[facility] Iucfqfxylx2223[address] [place], [place] [address]DrGerman Antonella Medrano POINT OF CARE GLUCOSEon 10-24 Glucose [Mass/Vol] 451 mg/dL Critically high 74-106 [facility] Comment on above: Performed By: #### P OCGLUC ####[facility] Afyzmworen04[address] [place] [address]Dr. Mariafilemon Medrano Glucose [Mass/Vol] 341 mg/dL Critically high 74-106 [facility] Comment on above: Performed By: #### P OCGLUC ####[facility] Lwlhdabibm6796 [place] [address]Dr. Mariafilemon Medrano Glucose [Mass/Vol] 440 mg/dL Critically high 74-106 [facility] Comment on above: Performed By: #### P OCGLUC ####[facility] Paunokcfiu4814[address] [place], [place] [address]Dr. Antonella Medrano Glucose [Mass/Vol] 295 mg/dL Critically high 74-106 [facility] Comment on above: Performed By: #### P OCGLUC ####[facility] Rnnopvmgqg330[address] [place], [place] [address]Dr. Antonella Medrano PROF 14(COMP METB)on 023 Albumin [Mass/Vol] 2.4 g/dL Critically low 3.4-5.0 [facility] Comment on above: Performed By: #### C MP ####[facility] Gdrtowanuq8525 [place] [address]Dr. Antonella Medrano Albumin/Globulin [Mass ratio] 0.8 {ratio} Normal [facility] Comment on above: Performed By: #### C MP ####[facility] Ayrnhytale[address] [place] [address]Dr. Antonella Medrano ALP [Catalytic activity/Vol] 121 U/L Critically high 46-116 [facility] Comment on above: Performed By: #### C MP ####[facility] Zkverapmwv0131 [place] [address]Dr. Antonella Medrano ALT [Catalytic activity/Vol] 17 U/L Normal 14-59 [facility] Comment on above: Performed By: #### C MP ####[facility] Abmtaeoeky8[address] [place], [place] [address]Dr. Antonella Medrano Anion gap [Moles/Vol] 11.7 mmol/L Normal [facility] Comment on above: Performed By: #### C MP ####[facility] Zisqxuzxtf7936 [place] [address]Dr. Antonella Medrano AST [Catalytic activity/Vol] 15 U/L Normal 15-37 [facility] Comment on above: Performed By: #### C MP ####[facility] Jirruzwtkw6167 [place] [address]Dr. Antonella Mitchell Bilirubin [Mass/Vol] 0.4 mg/dL Normal 0.2-1.0 [facility] Comment on above: Performed By: #### C MP ####[facility] Ajsvoyqzkt385[address] [place], [place] [address]Dr. Antonella Medrano Calcium [Mass/Vol] 8.3 mg/dL Critically low 8.5-10.1 [facility] Comment on above: Performed By: #### C MP ####[facility] Afdmpdlmef839[address] [place], [place] [address]Dr. Antonella Mitchell Chloride [Moles/Vol] 102 mmol/L Normal 98-107 [facility] Comment on above: Performed By: #### C MP ####[facility] Zegpvfezac1970[address] [place], [place] [address]Dr. Antonella Mitchell CO2 [Moles/Vol] 26.4 mmol/L Normal 21.0-32.0 [facility] Comment on above: Performed By: #### C MP ####[facility] Yukkzpmnzo635[address] [place], [place] [address]Dr. Antonella Mitchell Creatinine [Mass/Vol] 0.92 mg/dL Normal 0.55-1.02 [facility] Comment on above: Performed By: #### C MP ####[facility] Kpvcdpfgbd764[address] [place], [place] [address]Dr. Mariafilemon Mitchell EGFR-AF MEXICAN >60 Normal >=60 [facility] Comment on above: Performed By: #### C MP ####[facility] Ukvwjsiddd7744[address] [place], [place] [address]Dr. Antonella Medrano EGFR-NON AF MEXICAN >60 Normal >=60 [facility] Comment on above: Performed By: #### C MP ####[facility] Qweugbfmzv0930 [place] [address]Dr. Antonella Medrano Globulin (S) [Mass/Vol] 3.0 g/dL Normal [facility] Comment on above: Performed By: #### C MP ####[facility] Dzgkjzxwkq1739 [place] [address]Dr. Antonella Medrano Glucose [Mass/Vol] 285 mg/dL Critically high 74-106 [facility] Comment on above: Performed By: #### C MP ####[facility] Wgsjcdvbtw5387 [place] [address]Dr. Mariafilemon Mitchell Potassium [Moles/Vol] 4.1 mmol/L Normal 3.5-5.1 [facility] Comment on above: Performed By: #### C MP ####[facility] Rrqbnuyngp0161 [place] [address]Dr. Antonella Medrano Protein [Mass/Vol] 5.4 g/dL Critically low 6.4-8.2 [facility] Comment on above: Performed By: #### C MP ####[facility] Kvjvulzrer2105 [place] [address]Dr. Antonella Mitchell Sodium [Moles/Vol] 136 mmol/L Normal 136-145 [facility] Comment on above: Performed By: #### C MP ####[facility] Xldhystesl3640 [place] [address]Dr. Antonella Mitchell Urea nitrogen [Mass/Vol] 14.0 mg/dL Normal 7.0-18.0 [facility] Comment on above: Performed By: #### C MP ####[facility] Gfawmsrsuf4089[address] [place], [place] [address]Dr. Antonella Mitchell Urea nitrogen/Creatinine [Mass ratio] 15.2 mg/mg Normal [facility] Comment on above: Performed By: #### C MP ####[facility] Ibddrnjgaw4359 [place] [address]Dr. Mariafilemon Mitchell BLOOD GASES BTYon 11-08-2022 02 MODE ROOM AIR Normal [facility] Comment on above: Performed By: #### A BG ####[facility] Ttqnijasbm0992 [place] [address]Dr. Antonella Medrano ALLENS TEST Positive Normal [facility] Comment on above: Performed By: #### A BG ####[facility] Voqpsacnza2344 [place] [address]Dr. Antonella Medrano Base excess Calc (Bld) [Moles/Vol] 1.5 mmol/L Normal -2.0-2.0 [facility] Comment on above: Performed By: #### A BG ####[facility] Yaodnkjoay3528[address] [place], [place] [address]Dr. Antonella Medrano BIPAP PRESSURE Normal [facility] Comment on above: Performed By: #### A BG ####[facility] Jvweprxudp474[address] [place], [place] [address]Dr. Antonella Medrano CPAP Normal [facility] Comment on above: Performed By: #### A BG ####[facility] Taelafnnpv540[address] [place], [place] [address]Dr. Antonella Medrano FIO2 Normal [facility] Comment on above: Performed By: #### A BG ####[facility] Pdggcbhtlg7917[address] [place], [place] [address]Dr. Antonella Medrano HCO3 (Bld) [Moles/Vol] 26.1 mmol/L Critically high 22.0-26 .0 [facility] Comment on above: Performed By: #### A BG ####[facility] Aalrjmkqgd0220[address] [place], [place] [address]Dr. Antonella Medrano LPM Normal [facility] Comment on above: Performed By: #### A BG ####[facility] Radxvforsg215[address] [place], [place] [address]Dr. Antonella Medrano MINUTE VOLUME Normal [facility] Comment on above: Performed By: #### A BG ####[facility] Fmqtnurqgl154[address] [place], [place] [address]Dr. Antonella Medrano Oxygen (Bld) [Partial pressure] 78.1 mm[Hg] Critically low 80.0-100.0 [facility] Comment on above: Performed By: #### A BG ####[facility] Sdhwupjmrs3017 [place] [address]Dr. Antonella Medrano Oxygen saturation in Blood 97.0 % Normal 95.0-100.0 [facility] Comment on above: Performed By: #### A BG ####[facility] Dacnpowhnq2898 [place] [address]Dr. Antonella Medrano PCO2 41.0 mmHg Normal 35.0-45.0 [facility] Comment on above: Performed By: #### A BG ####[facility] Olmiwahujd20[address] [place], [place] [address]Dr. Antonella Medrano PEEP [facility] Comment on above: Performed By: #### A BG ####[facility] Bbphivijhr2216[address] [place], [place] [address]Dr. Antonella Medrano pH (Bld) 7.412 [pH] Normal 7.350-7.450 [facility] Comment on above: Performed By: #### A BG ####[facility] Hbikplggyb433[address] [place], [place] [address]Dr. Antonella Medrano PIP [facility] Comment on above: Performed By: #### A BG ####[facility] Xthuxvzmiv704[address] [place], [place] [address]Dr. Antonella Medrano PS [facility] Comment on above: Performed By: #### A BG ####[facility] Bkpyfpabne4414[address] [place], [place] [address]Dr. Antonella Medrano PUNCTURE SITE RR [facility] Comment on above: Performed By: #### A BG ####[facility] Kqinhukngv58[address] [place], [place] [address]Dr. Antonella Medrano RATE [facility] Comment on above: Performed By: #### A BG ####[facility] Wcblwaoqqp6904[address] [place], [place] [address]Dr. Antonella Medrano VENT MODE [facility] Comment on above: Performed By: #### A BG ####[facility] Mvhvbmjvcf601261 [address] [address] [place], [place] [address]Dr. Antonella Medrano [place] [facility] Comment on above: Performed By: #### A BG ####[facility] Kdshrbepqw[address] [place], [place] [address]Dr. Antonella Mitchell CBC AUTO DIFFon 11-08-2022 BASO # 0.1 103/ul Normal 0.0-0.1 [facility] Comment on above: Performed By: #### C BC ####[facility] Oczdnimiif[address] [place], [place] [address]Dr. Antonella Medrano Basophils/100 WBC (Bld) 0.7 % Normal 0.2-2.0 [facility] Comment on above: Performed By: #### C BC ####[facility] Hszekbxjew060[address] [place], [place] [address]Dr. Antonella Medrano EO # 0.3 103/ul Normal 0.0-0.7 [facility] Comment on above: Performed By: #### C BC ####[facility] Igvtedpujm57[address] [place], [place] [address]Dr. Antonella Medrano Eosinophils/100 WBC (Bld) 4.5 % Normal 0.9-7.0 [facility] Comment on above: Performed By: #### C BC ####[facility] Ezueaphmkj0530[address] [place], [place] [address]Dr. Antonella Medrano Erythrocyte distribution width (RBC) [Ratio] 13.2 % Normal 11.0-15.0 [facility] Comment on above: Performed By: #### C BC ####[facility] Smczhusopo034[address] [place], [place] [address]Dr. Antonella Medrano Hematocrit (Bld) [Volume fraction] 46.0 % Normal 36.0-48.0 [facility] Comment on above: Performed By: #### C BC ####[facility] Mveijdlbxm35[address] [place], [place] [address]Dr. Antonella Medrano Hemoglobin (Bld) [Mass/Vol] 15.5 g/dL Normal 12.0-16.0 [facility] Comment on above: Performed By: #### C BC ####[facility] Ikrjishczf369[address] [place], [place] [address]Dr. Antonella Medrano IG # 0.09 10e3/ul Critically high 0.00-0.03 [facility] Comment on above: Performed By: #### C BC ####[facility] Krkwufrets[address] [place] [address]DrGerman Medrano IG % 1.2 % Critically high 0.0-0.5 [facility] Comment on above: Performed By: #### C BC ####[facility] Icdfozmiuv228[address] [place], [place] [address]DrGerman Antonella Medrano LYMPH # 1.9 103/ul Normal 1.2-3.8 [facility] Comment on above: Performed By: #### C BC ####[facility] Zkenigwvll7499[address] [place], [place] [address]DrGerman Antonella Mitchell Lymphocytes/100 WBC (Bld) 25.9 % Normal 20.5-60.0 [facility] Comment on above: Performed By: #### C BC ####[facility] Ibuebseuld[address] [place], [place] [address]DrGerman Antonella Emdrano MANUAL DIFF REQ NO Normal [facility] Comment on above: Performed By: #### C BC ####[facility] Exumwkuyie367[address] [place], [place] [address]DrGerman Antonella Medrano MCH (RBC) [Entitic mass] 28.7 pg Normal 26.7-34.0 [facility] Comment on above: Performed By: #### C BC ####[facility] Cvnhnwtuna[address] [place], [place] [address]DrGerman Antonella Medrano MCHC (RBC) [Mass/Vol] 33.7 g/dL Normal 29.9-35.2 [facility] Comment on above: Performed By: #### C BC ####[facility] Pymspatkgg01[address] [place], [place] [address]DrGerman Antonella Medrano MCV (RBC) [Entitic vol] 85.2 fL Normal 81.0-99.0 [facility] Comment on above: Performed By: #### C BC ####[facility] Azkjrdsluu394[address] [place], [place] [address]DrGerman Antonella Mitchell MONO # 0.7 103/ul Normal 0.3-0.8 [facility] Comment on above: Performed By: #### C BC ####[facility] [address]uzv[address] [place] [address]Dr. Antonella Medrano Monocytes/100 WBC (Bld) 9.4 % Normal 1.7-12.0 [facility] Comment on above: Performed By: #### C BC ####[facility] O[address]xpip[address] [place] [id number]. Antonella Medrano NEUT # 4.3 103/ul Normal 1.4-6.5 [facility] Comment on above: Performed By: #### C BC ####[facility] Sgdvwcditi8[address] [place] [address]Dr. Antonella Medrano Neutrophils/100 WBC (Bld) 58.3 % Normal 43.0-75.0 [facility] Comment on above: Performed By: #### C BC ####[facility] Heiabaxtpg[address] [place] [address]Dr. Antonella Medrano Platelet mean volume (Bld) [Entitic vol] 10.4 fL Normal 9.5-13.5 [facility] Comment on above: Performed By: #### C BC ####[facility] Oiphgdlacd97[address] [place] [address]Dr. Antonella Medrano PLT 301 103/ul Normal 150-450 [facility] Comment on above: Performed By: #### C BC ####[facility] Laqgwgpzvs27[address] [place] [address]Dr. Antonella Medrano RBC 5.40 106/ul Normal 4.20-5.40 [facility] Comment on above: Performed By: #### C BC ####[facility] Mtdk[address] [place] [phone]. Antonella Medrano WBC 7.3 103/ul Normal 4.0-11.0 [facility] Comment on above: Performed By: #### C BC ####[facility] Nblqqazrck[address] [place] [address]Dr. Antonella Medrano CT CSPINE WO CONon 3 CT CSPINE WO CON Normal [facility] CT HEAD WO CONon 11-08-2022 CT HEAD WO CON Normal [facility] CULTURE URINEon 11-08-2022 CULTURE URINE Culture Observations : HEAVY GROWTH OF MIXED GENITAL LUCY. NO POTENTIAL PATHOGENS SEEN. Normal [facility] Comment on above: Performed By: #### U RCX ####[facility] [address]deaqn[address] [place] [address]Dr. Antonella Medrano [facility]24 SARS-CoV-2 (COVID-19) RNA TAISHA+probe Ql (Unsp spec) Not detected Normal NOT DETECTED [facility] Comment on above: Result Comment: When [...] for this test is supported by the [place] of [employer] and [employer] Service's declaration that [...] be used). Performed By: #### C VDTBH ####[facility] Qahvcvzpmz879[address] [place], [place] [address]Dr. Antonella Medrano ER URINE PROFILEon 3 Bilirubin Ql (U) Negative Normal NEGATIVE [facility] Comment on above: Performed By: #### U MICRO, ERUR ####[facility] Wbvttamakb210[address] [place], [place] [address]Dr. Antonella Medrano Clarity (U) CLEAR Normal CLEAR [facility] Comment on above: Performed By: #### U MICRO, ERUR ####[facility] Nfwcsfhejl16[address] [place] [address]Dr. Yilan Medrano Color (U) LT. YELLOW Normal YELLOW [facility] Comment on above: Performed By: #### U MICRO, ERUR ####[facility] Dvgmabantx59[address] [place] [address]Dr. Antonella LABOY A micrscopic examina tion will be performed if indicated. Normal [facility] Comment on above: Performed By: #### U MICRO, ERUR ####[facility] Oydxmabohg[address] [place], [place] [address]Dr. Antonella Medrano Glucose Ql (U) >1000 Abnormal NEGATIVE [facility] Comment on above: Performed By: #### U MICRO, ERUR ####[facility] Uwzleexvne035[address] [place], [place] [address]Dr. Antonella Medrano Hemoglobin Ql (U) SMALL Abnormal NEGATIVE [facility] Comment on above: Performed By: #### U MICRO, ERUR ####[facility] Rkfrrtrxsz599[address] [place], [place] [address]Dr. Antonella Medrano Ketones Ql (U) Negative Normal NEGATIVE [facility] Comment on above: Performed By: #### U MICRO, ERUR ####[facility] Prnwpvcwct8[address] [place], [place] [address]Dr. Antonella Medrano LEUKOCYTES TRACE Abnormal NEGATIVE [facility] Comment on above: Performed By: #### U MICRO, ERUR ####[facility] Xqjosohxcq709[address] [place], [place] [address]Dr. Antonella Medrano Nitrite Ql (U) Negative Normal NEGATIVE [facility] Comment on above: Performed By: #### U MICRO, ERUR ####[facility] Ddjixezyij033[address] [place], [place] [address]Dr. Antonella Medrano pH (U) 5.5 [pH] Normal 5-9 [facility] Comment on above: Performed By: #### U MICRO, ERUR ####[facility] Ohtupyywai16[address] [place], [place] [address]Dr. Antonella Medrano Protein (U) [Mass/Vol] 100 mg/dL Abnormal NEGAT LAZ/ TRACE [facility] Comment on above: Performed By: #### U MICRO, ERUR ####[facility] Kaiuexwwye[address] [place] [address]Dr. Antonella Medrano SPEC GRAVITY 1.010 Normal 1.005-<=1.0 [facility] Comment on above: Performed By: #### U MICRO, ERUR ####[facility] T[address]ff[address] [place] [address]Dr. Antonella Medrano UR MICRO IND INDICATED Normal [facility] Comment on above: Performed By: #### U MICRO, ERUR ####[facility] [address]udvvca[address] [place] [address]Dr. Antonella Medrano Urobilinogen Qn (U) 0.2 {Oleg'U}/dL Normal 0.2 - 1. 0 [facility] Comment on above: Performed By: #### U MICRO, ERUR ####[facility] Dudybtopfi[address] [place], [place] [address]Dr. Antonella Medrano POINT OF CARE GLUCOSEon 10-24 Glucose [Mass/Vol] 290 mg/dL Critically high 74-106 [facility] Comment on above: Performed By: #### P OCGLUC ####[facility] Pkgprrpttg45[address] [place] [address]Dr. Antonella Medrano PROF 14(COMP METB)on 023 Albumin [Mass/Vol] 3.2 g/dL Critically low 3.4-5.0 [facility] Comment on above: Performed By: #### H STROPN, CMP ####[facility] Xhrbfzljgk[address] [place] [address]Dr. Antonella Medrano Albumin/Globulin [Mass ratio] 0.8 {ratio} Normal [facility] Comment on above: Performed By: #### H STROPN, CMP ####[facility] Vkzbfdscwx6[address] [place] [address]Dr. Antonella Medrano ALP [Catalytic activity/Vol] 186 U/L Critically high 46-116 [facility] Comment on above: Performed By: #### H STROPN, CMP ####[facility] Xbnpmgrsvr29[address] [place] [address]Dr. Antonella Medrano ALT [Catalytic activity/Vol] 23 U/L Normal 14-59 [facility] Comment on above: Performed By: #### H STROJAVED, CMP ####[facility] Jcrfvygkhy3[address] [place] [address]Dr. Antonella Medrano Anion gap [Moles/Vol] 11.3 mmol/L Normal [facility] Comment on above: Performed By: #### H ADAIRPN, CMP ####[facility] Nuvffadsuy[address] [place] [address]Dr. Antonella Medrano AST [Catalytic activity/Vol] 21 U/L Normal 15-37 [facility] Comment on above: Performed By: #### H STROJAVED, CMP ####[facility] Wumoxquyfr407[address] [place], [place] [address]Dr. Antonella Medrano Bilirubin [Mass/Vol] 0.3 mg/dL Normal 0.2-1.0 [facility] Comment on above: Performed By: #### H NAI, CMP ####[facility] Ddufunwwze457[address] [place], [place] [address]Dr. Mariafilemon Medrano Calcium [Mass/Vol] 9.6 mg/dL Normal 8.5-10.1 [facility] Comment on above: Performed By: #### H NAI, CMP ####[facility] Zmkfdhcrrn[address] [place], [place] [address]Dr. Mariafilemon Medrano Chloride [Moles/Vol] 98 mmol/L Normal 98-107 [facility] Comment on above: Performed By: #### H ADAIRPN, CMP ####[facility] Sdabltcfhk[address] [place], [place] [address]Dr. Antonella Medrano CO2 [Moles/Vol] 30.0 mmol/L Normal 21.0-32.0 [facility] Comment on above: Performed By: #### H STROPN, CMP ####[facility] Jpecajzcif38[address] [place], [place] [address]Dr. Antonella Medrano Creatinine [Mass/Vol] 0.75 mg/dL Normal 0.55-1.02 [facility] Comment on above: Performed By: #### H STROPN, CMP ####[facility] Wralyxqkrd22[address] [place], [place] [address]Dr. Antonella Medrano EGFR-AF MEXICAN >60 Normal >=60 [facility] Comment on above: Performed By: #### H NAI, CMP ####[facility] Snknkwwwkp[address] [place] [address]Dr. Antonella Medrano EGFR-NON AF MEXICAN >60 Normal >=60 [facility] Comment on above: Performed By: #### H NAI, CMP ####[facility] Umoiesjpbp70[address] [place] [address]Dr. Antonella Medrano Globulin (S) [Mass/Vol] 4.0 g/dL Normal [facility] Comment on above: Performed By: #### H NAI, CMP ####[facility] Ffernxewtn[address] [place], [place] [address]Dr. Antonella Medrano Glucose [Mass/Vol] 292 mg/dL Critically high 74-106 [facility] Comment on above: Performed By: #### H NAI, CMP ####[facility] Eqrunlacgj325[address] [place], [place] [address]Dr. Antonella Medrano Potassium [Moles/Vol] 4.3 mmol/L Normal 3.5-5.1 [facility] Comment on above: Performed By: #### H NAI, CMP ####[facility] Dtwtnacieu53[address] [place], [place] [address]Dr. Antonella Medrano Protein [Mass/Vol] 7.2 g/dL Normal 6.4-8.2 [facility] Comment on above: Performed By: #### H NAI, CMP ####[facility] Dbdyftmzqp5654 [place] [address]Dr. Antonella Medrano Sodium [Moles/Vol] 135 mmol/L Critically low 136-145 [facility] Comment on above: Performed By: #### H NAI, CMP ####[facility] Qjdvawnauu35[address] [place] [address]Dr. Antonella Medrano Urea nitrogen [Mass/Vol] 14.0 mg/dL Normal 7.0-18.0 [facility] Comment on above: Performed By: #### H NAI, CMP ####[facility] Qvsngrstul33[address] [place] [address]Dr. Antonella Medrano Urea nitrogen/Creatinine [Mass ratio] 18.7 mg/mg Normal [facility] Comment on above: Performed By: #### H NAI, CMP ####[facility] Gcmmvwcgfl[address] [place], [place] [address]Dr. Antonella Medrano TROPONIN, HIGH SENSITIVITYon 11-08-2022 HSTROP 69.8 pg/mL Critically high 4.0-51.3 [facility] Comment on above: Result Comment: CUT- OFF POINTS HAVE BEEN ESTABLISHED BASED ON THE FOURTH UNIVERSAL DEFINITIONS OF MYOCARDIALINFARCTION. THE UPPER REFERENCE LIMIT (URL) OF TROPONIN, DEFINED THE 99TH PERCENTILE OFcTnI DISTRIBUTION IN A REFERENCE POPULATION, HAS BEEN CONFIRMED THE DECISION THRESHOLDFOR [place] DIAGNOSIS. Performed By: #### H NAI, CMP ####[facility] Pxezaswbkk274[address] [place], [place] [address]Dr. Antonella Medrano HSTROP 69.8 pg/mL Critically high 4.0-51.3 [facility] Comment on above: Result Comment: CUT- OFF POINTS HAVE BEEN ESTABLISHED BASED ON THE FOURTH UNIVERSAL DEFINITIONS OF MYOCARDIALINFARCTION. THE UPPER REFERENCE LIMIT (URL) OF TROPONIN, DEFINED THE 99TH PERCENTILE OFcTnI DISTRIBUTION IN A REFERENCE POPULATION, HAS BEEN CONFIRMED THE DECISION THRESHOLDFOR [place] DIAGNOSIS. Performed By: #### H NAI ####[facility] Bspbmfcubl[address] [place], [place] [address]Dr. Antonella Medrano URINE MICROSCOPIC ONLYon BACTERIA TRACE Abnormal NONE SEEN [facility] Comment on above: Performed By: #### U MICRO, ERUR ####[facility] Itojlojund8[address] [place], [place] [address]Dr. Antonella Medrano Bacteria identified Cx Nom (U) INDICATED Normal [facility] Comment on above: Performed By: #### U MICRO, ERUR ####[facility] Oewwckpktw64[address] [place], [place] [address]Dr. Antonella Medrano CAST NONE SEEN Normal NONE SEEN [facility] Comment on above: Performed By: #### U MICRO, ERUR ####[facility] Qwvhhjcqsx10[address] [place], [place] [address]Dr. Antonella Medrano Crystals LM Nom (Urine sed) NONE SEEN Normal NONE SEEN [facility] Comment on above: Performed By: #### U MICRO, ERUR ####[facility] Uiasazijyx90[address] [place] [address]Dr. Antonella Medrano Epithelial cells LM Ql (Urine sed) FEW Abnormal NONE SEEN /RARE [facility] Comment on above: Performed By: #### U MICRO, ERUR ####[facility] Egipcccxvn6[address] [place] [address]Dr. Antonella Medrano MUCOUS NONE SEEN Normal NONE SEEN [facility] Comment on above: Performed By: #### U MICRO, ERUR ####[facility] Syrkwvfvqe8565 [place] [address]Dr. Antonella Medrano RBC 2-5 Abnormal 0-2 [facility] Comment on above: Performed By: #### U MICRO, ERUR ####[facility] Ijacjekusg8810 [place] [address]Dr. Antonella Medrano WBC 10-20 Abnormal NONE SEEN [facility] Comment on above: Performed By: #### U MICRO, ERUR ####[facility] Ppsbjmrbhr4560 [place] [address]Dr. Antonella Medrano YEAST PRESENT Abnormal NONE SEEN [facility] Comment on above: Result Comment: 3+ b udding Performed By: #### U MICRO, ERUR ####[facility] Jnbsgsmqcv1699 [place] [address]Dr. Antonella Medrano XR CHEST 2 Von 11-08-2022 XR CHEST 2 V Normal [facility] XR KNEE RT 4V or >on 023 XR KNEE RT 4V or > Normal [facility] CT CSPINE WO CONon CT CSPINE WO CON Normal [facility] CT HEAD WO CONon 08-23-2022 CT HEAD WO CON Normal [facility] XR CHEST 1 Von 08-23-2022 XR CHEST 1 V Normal [facility] XR HIP LT 2 3V W PELVISon XR HIP LT 2 3V W PELVIS Normal [facility] CULTURE URINEon 08-02-2022 CULTURE URINE Normal [facility] Comment on above: Performed By: #### U RCX ####[facility] Rhbfmkvwob36[address] [place], [place] [address]Dr. Antonella Medrano CBC AUTO DIFFon 07-31-2022 BASO # 0.0 103/ul Normal 0.0-0.1 [facility] Comment on above: Performed By: #### C BC ####[facility] Hdzkimphny79[address] [place], [place] [address]Dr. Antonella Medrano Basophils/100 WBC (Bld) 0.4 % Normal 0.2-2.0 [facility] Comment on above: Performed By: #### C BC ####[facility] Yxkanybchf97[address] [place], [place] [address]Dr. Antonella Medrano EO # 0.1 103/ul Normal 0.0-0.7 [facility] Comment on above: Performed By: #### C BC ####[facility] Hwgvqesnvf55[address] [place], [place] [address]Dr. Antonella Medrano Eosinophils/100 WBC (Bld) 1.3 % Normal 0.9-7.0 [facility] Comment on above: Performed By: #### C BC ####[facility] Hbbpmkdjxm848[address] [place], [place] [address]Dr. Antonella Medrano Erythrocyte distribution width (RBC) [Ratio] 13.4 % Normal 11.0-15.0 [facility] Comment on above: Performed By: #### C BC ####[facility] Hwgezpunrj[address] [place], [place] [address]Dr. Antonella Medrano Hematocrit (Bld) [Volume fraction] 43.4 % Normal 36.0-48.0 [facility] Comment on above: Performed By: #### C BC ####[facility] Njtidpuxpp35[address] [place], [place] [address]Dr. Antonella Medrano Hemoglobin (Bld) [Mass/Vol] 14.6 g/dL Normal 12.0-16.0 [facility] Comment on above: Performed By: #### C BC ####[facility] Htibbwzbpx877[address] [place], [place] [address]Dr. Antonella Medrano IG # 0.05 10e3/ul Critically high 0.00-0.03 [facility] Comment on above: Performed By: #### C BC ####[facility] Ihefigomre34[address] [place] [address]DrGerman Antonella Mitchell IG % 0.6 % Critically high 0.0-0.5 [facility] Comment on above: Performed By: #### C BC ####[facility] Wjeutxtmld7[address] [place] [address]DrGerman Medrano LYMPH # 1.0 103/ul Critically low 1.2-3.8 [facility] Comment on above: Performed By: #### C BC ####[facility] Kfxldycohq03[address] [place], [place] [address]DrGerman Medrano Lymphocytes/100 WBC (Bld) 13.4 % Critically low 20.5-60.0 [facility] Comment on above: Performed By: #### C BC ####[facility] Usxpbmxmjx[address] [place], [place] [address]DrGerman Medrano MANUAL DIFF REQ NO Normal [facility] Comment on above: Performed By: #### C BC ####[facility] Saqtoioxkf97[address] [place], [place] [address]DrGerman Sifuentesfilemon Mitchell MCH (RBC) [Entitic mass] 28.9 pg Normal 26.7-34.0 [facility] Comment on above: Performed By: #### C BC ####[facility] Aeinocigkm8[address] [place], [place] [address]DrGerman Medrano MCHC (RBC) [Mass/Vol] 33.6 g/dL Normal 29.9-35.2 [facility] Comment on above: Performed By: #### C BC ####[facility] Fmjkraptpu[address] [place], [place] [address]DrGerman Medrano MCV (RBC) [Entitic vol] 85.9 fL Normal 81.0-99.0 [facility] Comment on above: Performed By: #### C BC ####[facility] Fjfunwdurw356[address] [place], [place] [address]DrGerman Medrano MONO # 0.7 103/ul Normal 0.3-0.8 [facility] Comment on above: Performed By: #### C BC ####[facility] Ybshsekeoc[address] [place] [address]Dr. Antonella Medrano Monocytes/100 WBC (Bld) 9.0 % Normal 1.7-12.0 [facility] Comment on above: Performed By: #### C BC ####[facility] Gvqgnfubht7[address] [place] [address]Dr. Antonella Medrano NEUT # 5.9 103/ul Normal 1.4-6.5 [facility] Comment on above: Performed By: #### C BC ####[facility] Egyjvcrybn7109 [place] [address]Dr. Antonella Medrano Neutrophils/100 WBC (Bld) 75.3 % Critically high 43.0-75.0 [facility] Comment on above: Performed By: #### C BC ####[facility] Bfbnkhfitu67[address] [place], [place] [address]Dr. Antonella Medrano Platelet mean volume (Bld) [Entitic vol] 10.9 fL Normal 9.5-13.5 [facility] Comment on above: Performed By: #### C BC ####[facility] Ympjmyhtki60[address] [place], [place] [address]Dr. Antonella Medrano PLT 245 103/ul Normal 150-450 [facility] Comment on above: Performed By: #### C BC ####[facility] Jyfzpaiwyw29[address] [place] [address]Dr. Antonella Medrano RBC 5.05 106/ul Normal 4.20-5.40 [facility] Comment on above: Performed By: #### C BC ####[facility] Ndfcwowyyr34[address] [place] [id number]. Antonella Medrano WBC 7.8 103/ul Normal 4.0-11.0 [facility] Comment on above: Performed By: #### C BC ####[facility] Iziucxfvtu16[address] [place] [id number]. Antonella Medrano CT ABD/PELV W CONon 11-08-[address] ABD/PELV W CON Normal [facility] CT CSPINE WO CONon 2 CT CSPINE WO CON Normal [facility] CT HEAD WO CONon 07-31-2022 CT HEAD WO CON Normal [facility] ER URINE PROFILEon 2 Bilirubin Ql (U) Negative Normal NEGATIVE [facility] Comment on above: Performed By: #### U MICRO, ERUR ####[facility] Oyobzhizzu[address] [place] [address]Dr. Antonella Medrano Clarity (U) CLEAR Normal CLEAR [facility] Comment on above: Performed By: #### U MICRO, ERUR ####[facility] Wrmqizmqkf76[address] [place] [address]Dr. Antonella Medrano Color (U) LT. YELLOW Normal YELLOW [facility] Comment on above: Performed By: #### U MICRO, ERUR ####[facility] Fkvkbwbsbf6657 [place] [address]Dr. Antonella NGUYEND A micrscopic examina tion will be performed if indicated. Normal [facility] Comment on above: Performed By: #### U MICRO, ERUR ####[facility] Rtuauimoxv58[address] [place] [address]Dr. Antonella Medrano Glucose Ql (U) >1000 Abnormal NEGATIVE [facility] Comment on above: Performed By: #### U MICRO, ERUR ####[facility] [facility] Jpbvrgozbb[address] [place] [address]Dr. Antonella Medrano Hemoglobin Ql (U) SMALL Abnormal NEGATIVE [facility] Comment on above: Performed By: #### U MICRO, ERUR ####[facility] Qppvecnwlc[address] [place] [address]Dr. Antonella Medrano Ketones Ql (U) Negative Normal NEGATIVE [facility] Comment on above: Performed By: #### U MICRO, ERUR ####[facility] Sxpadlmidk[address] [place] [address]Dr. Antonella Medrano LEUKOCYTES Negative Normal NEGATIVE [facility] Comment on above: Performed By: #### U MICRO, ERUR ####[facility] Kvivounrtn35[address] [place] [address]Dr. Antonella Medrano Nitrite Ql (U) Negative Normal NEGATIVE [facility] Comment on above: Performed By: #### U MICRO, ERUR ####[facility] Xvewsuekvz26[address] [place], [place] [address]Dr. Antonella Medrano pH (U) 5.5 [pH] Normal 5-9 [facility] Comment on above: Performed By: #### U MICRO, ERUR ####[facility] Wmfuvqrwbc036[address] [place], [place] [address]Dr. Antonella Medrano Protein (U) [Mass/Vol] 30 mg/dL Abnormal NEGAT LZA/ TRACE [facility] Comment on above: Performed By: #### U MICRO, ERUR ####[facility] Ozxclgrzgz560[address] [place], [place] [address]Dr. Antonella Medrano SPEC GRAVITY 1.010 Normal 1.005-<=1.0 25 [facility] Comment on above: Performed By: #### U MICRO, ERUR ####[facility] Xjlvpybcyf39[address] [place], [place] [address]Dr. Antonella Medrano UR MICRO IND INDICATED Normal [facility] Comment on above: Performed By: #### U MICRO, ERUR ####[facility] Rkldmcwrnw5[address] [place], [place] [address]Dr. Antonella Medrano Urobilinogen Qn (U) 0.2 {Oleg'U}/dL Normal 0.2 - 1. 0 [facility] Comment on above: Performed By: #### U MICRO, ERUR ####[facility] Ikhiibxjlt927[address] [place], [place] [address]Dr. Antonella Medrano PROF 14(COMP METB)on 022 Albumin [Mass/Vol] 3.0 g/dL Critically low 3.4-5.0 [facility] Comment on above: Performed By: #### C MP ####[facility] Nkpigbnflu969[address] [place], [place] [address]Dr. Antonella Medrano Albumin/Globulin [Mass ratio] 0.8 {ratio} Normal [facility] Comment on above: Performed By: #### C MP ####[facility] Fygkjjkcao[address] [place] [id number]. Antonella Medrano ALP [Catalytic activity/Vol] 136 U/L Critically high 46-116 [facility] Comment on above: Performed By: #### C MP ####[facility] Nlfbpmnfis53[address] [place] [phone]. Antonella Medrano ALT [Catalytic activity/Vol] 11 U/L Critically low 14-59 [facility] Comment on above: Performed By: #### C MP ####[facility] Edvhhviemx26[address] [place] [address]Dr. Antonella Medrano Anion gap [Moles/Vol] 7.7 mmol/L Normal [facility] Comment on above: Performed By: #### C MP ####[facility] Gzvjowtxll2057 [place] [address]Dr. Antonella Medrano AST [Catalytic activity/Vol] 12 U/L Critically low 15-37 [facility] Comment on above: Performed By: #### C MP ####[facility] Oqlqqabjxf8156 [place] [address]Dr. Antonella Medrano Bilirubin [Mass/Vol] 0.3 mg/dL Normal 0.2-1.0 [facility] Comment on above: Performed By: #### C MP ####[facility] Snpbvrnezk2664 [place] [address]Dr. Antonella Medrano Calcium [Mass/Vol] 8.5 mg/dL Normal 8.5-10.1 [facility] Comment on above: Performed By: #### C MP ####[facility] Wqjqfwvuis9550 [place] [address]Dr. Antonella Medrano Chloride [Moles/Vol] 100 mmol/L Normal 98-107 [facility] Comment on above: Performed By: #### C MP ####[facility] Xrgyvoduok488[address] [place] [address]Dr. Antonella Medrano CO2 [Moles/Vol] 27.2 mmol/L Normal 21.0-32.0 [facility] Comment on above: Performed By: #### C MP ####[facility] Pnpfldogbe0810 [place] [address]Dr. Antonella Mitchell Creatinine [Mass/Vol] 1.02 mg/dL Normal 0.55-1.02 [facility] Comment on above: Performed By: #### C MP ####[facility] Wnsqdnjngm208[address] [place], [place] [address]Dr. Antonella Mitchell EGFR-AF MEXICAN >60 Normal >=60 [facility] Comment on above: Performed By: #### C MP ####[facility] Hwjaspjcfi77[address] [place], [place] [address]Dr. Antonella Mitchell EGFR-NON AF MEXICAN 54 mL/min/1.73m2 Critically low >=60 [facility] Comment on above: Performed By: #### C MP ####[facility] Mimcartfiz605[address] [place], [place] [address]Dr. Antonella Medrano Globulin (S) [Mass/Vol] 3.6 g/dL Normal [facility] Comment on above: Performed By: #### C MP ####[facility] Eedznhwvov337[address] [place], [place] [address]Dr. Antonella Medrano Glucose [Mass/Vol] 453 mg/dL Critically high 74-106 [facility] Comment on above: Performed By: #### C MP ####[facility] Cworvfmoyf4724[address] [place], [place] [address]Dr. Antonella Medrano Potassium [Moles/Vol] 3.9 mmol/L Normal 3.5-5.1 [facility] Comment on above: Performed By: #### C MP ####[facility] Mhcagmhzua0829[address] [place], [place] [address]Dr. Antonella Medrano Protein [Mass/Vol] 6.6 g/dL Normal 6.4-8.2 [facility] Comment on above: Performed By: #### C MP ####[facility] Ljuvvefhwr6435[address] [place], [place] [address]Dr. Antonella Medrano Sodium [Moles/Vol] 131 mmol/L Critically low 136-145 [facility] Comment on above: Performed By: #### C MP ####[facility] Nhlmxwjgqr3080[address] [place], [place] [address]Dr. Antonella Medrano Urea nitrogen [Mass/Vol] 27.0 mg/dL Critically high 7.0-18.0 [facility] Comment on above: Performed By: #### C MP ####[facility] Hdkhofqyvb67[address] [place] [address]Dr. Mariafilemon Mitchell Urea nitrogen/Creatinine [Mass ratio] 26.5 mg/mg Normal [facility] Comment on above: Performed By: #### C MP ####[facility] Euwcdnlpvt87[address] [place] [address]Dr. Antonella Medrano URINE MICROSCOPIC ONLYon BACTERIA TRACE Abnormal NONE SEEN [facility] Comment on above: Performed By: #### U MICRO, ERUR ####[facility] Gfefcaeohg810[address] [place], [place] [address]Dr. Antonella Medrano Bacteria identified Cx Nom (U) INDICATED Normal [facility] Comment on above: Performed By: #### U MICRO, ERUR ####[facility] Nfqrmznblw69[address] [place], [place] [address]Dr. Antonella Medrano CAST NONE SEEN Normal NONE SEEN [facility] Comment on above: Performed By: #### U MICRO, ERUR ####[facility] Owxtcyhgzo664[address] [place], [place] [address]Dr. Antonella Medrano Crystals LM Nom (Urine sed) NONE SEEN Normal NONE SEEN [facility] Comment on above: Performed By: #### U MICRO, ERUR ####[facility] Mfspmwyuzb698[address] [place], [place] [address]Dr. Antonella Medrano Epithelial cells LM Ql (Urine sed) RARE Normal NONE SEEN /RARE [facility] Comment on above: Performed By: #### U MICRO, ERUR ####[facility] Bmfyvgjzuo79[address] [place], [place] [address]Dr. Antonella Medrano MUCOUS NONE SEEN Normal NONE SEEN [facility] Comment on above: Performed By: #### U MICRO, ERUR ####[facility] Seckwxjzsh5612[address] [place], [place] [address]Dr. Antonella Medrano RBC NONE SEEN Abnormal 0-2 [facility] Comment on above: Performed By: #### U MICRO, ERUR ####[facility] Exgkzuhnlm5[address] [place] [address]Dr. Antonella Medrano WBC 5-10 Abnormal NONE SEEN [facility] Comment on above: Performed By: #### U MICRO, ERUR ####[facility] Dsxikvioon6735 [place] [address]Dr. Antonella Medrano YEAST PRESENT Abnormal NONE SEEN [facility] Comment on above: Performed By: #### U MICRO, ERUR ####[facility] Odvznyicjw1835 [place] [address]Dr. Antonella Medrano Follow-Upon 07-18-2022 Follow-Up [id number] Rylan Blanc 1955 F Date Provider Department Center 07/18/2022 ALFRED JACOBS [facility] No family history on file Level of Service:37128 MS OFFICE/OUTPATIENT ESTABLISHED MOD MDM 30-39 MIN Reason for Visit and Comments: Edema [[id number]] Coronary Artery Disease [187] Normal [facility] PROF CHEM 8 (BAS METB)on Anion gap [Moles/Vol] 12.7 mmol/L Normal [facility] Comment on above: Performed By: #### B MP ####[facility] Invzghtfdo25[address] [place] [address]Dr. Antonella Medrano Calcium [Mass/Vol] 9.4 mg/dL Normal 8.5-10.1 [facility] Comment on above: Performed By: #### B MP ####[facility] Hepjcuoskw34[address] [place] [address]Dr. Antonella Medrano Chloride [Moles/Vol] 96 mmol/L Critically low 98-107 [facility] Comment on above: Performed By: #### B MP ####[facility] Xvgbdhgnrz5193 [place] [address]Dr. Antonella Medrano CO2 [Moles/Vol] 28.2 mmol/L Normal 21.0-32.0 [facility] Comment on above: Performed By: #### B MP ####[facility] Ynggdirimn8209 [place] [address]Dr. Antonella Medrano Creatinine [Mass/Vol] 0.89 mg/dL Normal 0.55-1.02 [facility] Comment on above: Performed By: #### B MP ####[facility] Zzzimwrhkv0114 [place] [address]Dr. Antonella Medrano EGFR-AF MEXICAN >60 Normal >=60 [facility] Comment on above: Performed By: #### B MP ####[facility] Zwvxemmody27[address] [place] [address]Dr. Antonella Mitchell EGFR-NON AF MEXICAN >60 Normal >=60 [facility] Comment on above: Performed By: #### B MP ####[facility] Xnqbnfgylf0304 [place] [address]Dr. Mariafilemon Mitchell Glucose [Mass/Vol] 395 mg/dL Critically high 74-106 [facility] Comment on above: Performed By: #### B MP ####[facility] Wqoqxiatri416[address] [place], [place] [address]Dr. Antonella Medrano Potassium [Moles/Vol] 4.9 mmol/L Normal 3.5-5.1 [facility] Comment on above: Performed By: #### B MP ####[facility] Gypcbpudto65[address] [place], [place] [address]Dr. Mariafilemon Mitchell Sodium [Moles/Vol] 132 mmol/L Critically low 136-145 [facility] Comment on above: Performed By: #### B MP ####[facility] Jnkdwwtetn2799 [place] [address]Dr. Mariafilemon Mitchell Urea nitrogen [Mass/Vol] 29.0 mg/dL Critically high 7.0-18.0 [facility] Comment on above: Performed By: #### B MP ####[facility] Xakryhdkfe3738 [place] [address]Dr. Antonella Medrano Urea nitrogen/Creatinine [Mass ratio] 32.6 mg/mg Normal [facility] Comment on above: Performed By: #### B MP ####[facility] Niortzlnrx[address] [place], [place] [id number]. Antonella Medrano POINT OF CARE GLUCOSEon 04-24 Glucose [Mass/Vol] 82 mg/dL Normal 74-106 [facility] Comment on above: Performed By: #### P OCGLUC ####[facility] Usjrbbopdh911[address] [place], [place] [address]Dr. Antonella Medrano Glucose [Mass/Vol] 113 mg/dL Critically high 74-106 [facility] Comment on above: Performed By: #### P OCGLUC ####[facility] Gcahjpfqyn1600[address] [place], [place] [address]Dr. Antonella Medrano PROF 14(COMP METB)on 022 Albumin [Mass/Vol] 2.2 g/dL Critically low 3.4-5.0 [facility] Comment on above: Performed By: #### C MP ####[facility] Mppvtqmbis410[address] [place], [place] [address]Dr. Antonella Medrano Albumin/Globulin [Mass ratio] 0.7 {ratio} Normal [facility] Comment on above: Performed By: #### C MP ####[facility] Exndeehlrh213[address] [place], [place] [address]Dr. Antonella Medrano ALP [Catalytic activity/Vol] 80 U/L Normal 46-116 [facility] Comment on above: Performed By: #### C MP ####[facility] Kpfksoasnk54[address] [place], [place] [address]Dr. Antonella Medrano ALT [Catalytic activity/Vol] 9 U/L Critically low 14-59 [facility] Comment on above: Performed By: #### C MP ####[facility] Atsjvitiic879[address] [place], [place] [address]Dr. Antonella Medrano Anion gap [Moles/Vol] 10.4 mmol/L Normal [facility] Comment on above: Performed By: #### C MP ####[facility] Pejiaikdlo369[address] [place], [place] [address]Dr. Antonella Medrano AST [Catalytic activity/Vol] 13 U/L Critically low 15-37 [facility] Comment on above: Performed By: #### C MP ####[facility] Zajfqwcsve01[address] [place], [place] [address]Dr. Antonella Medrano Bilirubin [Mass/Vol] 0.3 mg/dL Normal 0.2-1.0 [facility] Comment on above: Performed By: #### C MP ####[facility] Khsnemadlr6487 [place] [address]Dr. Antonella Medrano Calcium [Mass/Vol] 7.9 mg/dL Critically low 8.5-10.1 [facility] Comment on above: Performed By: #### C MP ####[facility] Numyzkvawe15[address] [place], [place] [address]Dr. Antonella Medrano Chloride [Moles/Vol] 107 mmol/L Normal 98-107 [facility] Comment on above: Performed By: #### C MP ####[facility] Gkffzszfzv8[address] [place], [place] [address]Dr. Antonella Medrano CO2 [Moles/Vol] 20.6 mmol/L Critically low 21.0-32.0 [facility] Comment on above: Performed By: #### C MP ####[facility] Ylechpkhco38[address] [place], [place] [address]Dr. Antonella Medrano Creatinine [Mass/Vol] 0.88 mg/dL Normal 0.55-1.02 [facility] Comment on above: Performed By: #### C MP ####[facility] Zntlqhmyjr229[address] [place], [place] [address]Dr. Antonella Mitchell EGFR-AF MEXICAN >60 Normal >=60 [facility] Comment on above: Performed By: #### C MP ####[facility] Wmagbudtjk2830[address] [place], [place] [address]Dr. Antonella Medrano EGFR-NON AF MEXICAN >60 Normal >=60 [facility] Comment on above: Performed By: #### C MP ####[facility] Klxisawcnk5939[address] [place], [place] [address]Dr. Antonella Medrano Globulin (S) [Mass/Vol] 3.0 g/dL Normal [facility] Comment on above: Performed By: #### C MP ####[facility] Vazvubwtnu095[address] [place], [place] [address]Dr. Antonella Medrano Glucose [Mass/Vol] 120 mg/dL Critically high 74-106 [facility] Comment on above: Performed By: #### C MP ####[facility] Yabroqiknc0684 [place] [address]Dr. Antonella Medrano Potassium [Moles/Vol] 4.0 mmol/L Normal 3.5-5.1 [facility] Comment on above: Performed By: #### C MP ####[facility] Mdnirewchc5847 [place] [address]Dr. Antonella Medrano Protein [Mass/Vol] 5.2 g/dL Critically low 6.4-8.2 [facility] Comment on above: Performed By: #### C MP ####[facility] Admsdqqzxo601[address] [place], [place] [address]Dr. Anotnella Medrano Sodium [Moles/Vol] 134 mmol/L Critically low 136-145 [facility] Comment on above: Performed By: #### C MP ####[facility] Ksdperbqgk006[address] [place], [place] [address]Dr. Antonella Medrano Urea nitrogen [Mass/Vol] 25.0 mg/dL Critically high 7.0-18.0 [facility] Comment on above: Performed By: #### C MP ####[facility] Rpimronhwm48[address] [place], [place] [address]Dr. Antonella Medrano Urea nitrogen/Creatinine [Mass ratio] 28.4 mg/mg Normal [facility] Comment on above: Performed By: #### C MP ####[facility] Qwmqhwswcy16[address] [place], [place] [address]Dr. Antonella Medrano AMMONIAon 05-13-2022 Ammonia (P) [Moles/Vol] 24 umol/L Normal 11-32 [facility] Comment on above: Performed By: #### A MM ####[facility] Lmbakbzcwq27[address] [place], [place] [address]Dr. Antonella Medrano BLOOD GASES BTYon 05-13-2022 02 MODE ROOM AIR Normal [facility] Comment on above: Performed By: #### A BG ####[facility] Jbgiqqezvb096[address] [place], [place] [address]Dr. Antonella Medrano ALLENS TEST Positive Normal [facility] Comment on above: Performed By: #### A BG ####[facility] Rpptonjxrm9420 [place] [address]Dr. Antonella Medrano Base excess Calc (Bld) [Moles/Vol] 0.7 mmol/L Normal -2.0-2.0 [facility] Comment on above: Performed By: #### A BG ####[facility] Kwoynwelmu3535 [place] [address]Dr. Antonella Medrano BIPAP PRESSURE [facility] Comment on above: Performed By: #### A BG ####[facility] Idjhcbzoxy148[address] [place], [place] [address]Dr. Antonella Medrano CPAP [facility] Comment on above: Performed By: #### A BG ####[facility] Udtlfwzchr[address] [place], [place] [address]Dr. Antonella Medrano FIO2 [facility] Comment on above: Performed By: #### A BG ####[facility] Txiaiwfove454[address] [place], [place] [address]Dr. Antonella Medrano HCO3 (Bld) [Moles/Vol] 24.4 mmol/L Normal 22.0-26.0 [facility] Comment on above: Performed By: #### A BG ####[facility] Oumqahgixx[address] [place], [place] [address]Dr. Antonella Medrano LPM [facility] Comment on above: Performed By: #### A BG ####[facility] Leblzhpszh34[address] [place], [place] [address]Dr. Antonella Medrano MINUTE VOLUME Normal [facility] Comment on above: Performed By: #### A BG ####[facility] Mhibefbuxn7040[address] [place], [place] [address]Dr. Antonella Medrano Oxygen (Bld) [Partial pressure] 36.8 mm[Hg] Critically low 80.0-100.0 [facility] Comment on above: Result Comment: mixe d/venous blood Performed By: #### A BG ####[facility] Gxhpegnffo999[address] [place], [place] [address]Dr. Antonella Medrano Oxygen saturation in Blood 74.3 % Critically low 95.0-100.0 [facility] Comment on above: Result Comment: mixe d/venous blood Performed By: #### A BG ####[facility] Zhluzzmlxg8543 [place] [address]Dr. Antonella Medrano PCO2 40.2 mmHg Normal 35.0-45.0 [facility] Comment on above: Performed By: #### A BG ####[facility] Ozsbeynrkv8453 [place] [address]Dr. Antonella Medrano PEEP [facility] Comment on above: Performed By: #### A BG ####[facility] Zjdtlyafxa2607 [place] [address]Dr. Antonella Medrano pH (Bld) 7.409 [pH] Normal 7.350-7.450 [facility] Comment on above: Performed By: #### A BG ####[facility] Eethjjfteo2835[address] [place], [place] [address]Dr. Antonella Medrano PIP [facility] Comment on above: Performed By: #### A BG ####[facility] Omblycwfzs[address] [place], [place] [address]Dr. Antonella Medrano PS [facility] Comment on above: Performed By: #### A BG ####[facility] Qctbzawwtk[address] [place], [place] [address]Dr. Antonella Medrano PUNCTURE SITE RR [facility] Comment on above: Performed By: #### A BG ####[facility] Dzjyrhajby[address] [place], [place] [address]Dr. Antonella Medrano RATE [facility] Comment on above: Performed By: #### A BG ####[facility] Pssesgyfdj85[address] [place] [address]Dr. Antonella Medrano VENT MODE [facility] Comment on above: Performed By: #### A BG ####[facility] Ubolibwcgl[address] [place], [place] [address]Dr. Antonella Medrano VT [facility] Comment on above: Performed By: #### A BG ####[facility] Sazqlsgeee04[address] [place], [place] [address]Dr. Antonella Medrano CARDIAC VICK 3-6on 2 CK [Catalytic activity/Vol] 38 U/L Normal 26-192 [facility] Comment on above: Performed By: #### C MREP ####[facility] Ifarqydbic0071 [place], [place] [address]Hd. Antonella Medrano CK.MB [Mass/Vol] 1.28 ng/mL Normal <=3.60 [facility] Comment on above: Performed By: #### C MREP ####[facility] Eexzzrcbtt1463 [place] [id number]. Antonella Medrano HSTROP 58.4 pg/mL Critically high 4.0-51.3 [facility] Comment on above: Result Comment: CUT- OFF POINTS HAVE BEEN ESTABLISHED BASED ON THE FOURTH UNIVERSAL DEFINITIONS OF MYOCARDIALINFARCTION. THE UPPER REFERENCE LIMIT (URL) OF TROPONIN, DEFINED THE 99TH PERCENTILE OFcTnI DISTRIBUTION IN A REFERENCE POPULATION, HAS BEEN CONFIRMED THE DECISION THRESHOLDFOR [place] DIAGNOSIS. Performed By: #### C MREP ####[facility] Mcahcnlxri[address] [place] [id number]. Antonella Medrano CK [Catalytic activity/Vol] 45 U/L Normal 26-192 [facility] Comment on above: Performed By: #### C MREP ####[facility] Odwuybujcu8425 [place] [id number]. Antonella Medrano CK.MB [Mass/Vol] 1.53 ng/mL Normal <=3.60 [facility] Comment on above: Performed By: #### C MREP ####[facility] Tpxyxraczm3456 [place] [id number]. Antonella Medrano HSTROP 56.7 pg/mL Critically high 4.0-51.3 [facility] Comment on above: Result Comment: CUT- OFF POINTS HAVE BEEN ESTABLISHED BASED ON THE FOURTH UNIVERSAL DEFINITIONS OF MYOCARDIALINFARCTION. THE UPPER REFERENCE LIMIT (URL) OF TROPONIN, DEFINED THE 99TH PERCENTILE OFcTnI DISTRIBUTION IN A REFERENCE POPULATION, HAS BEEN CONFIRMED THE DECISION THRESHOLDFOR [place] DIAGNOSIS. Performed By: #### C MREP ####[facility] Acukgsaogc7[address] [place] [id number]. Antonella Medrano CARDIAC VICK ADMITon 022 CK [Catalytic activity/Vol] 47 U/L Normal 26-192 [facility] Comment on above: Performed By: #### C FERNANDEZ, BMP ####[facility] Zjenavhuge3919 [place] [id number]. Antonella Medrano CK.MB [Mass/Vol] 1.38 ng/mL Normal <=3.60 [facility] Comment on above: Performed By: #### C FERNANDEZ, BMP ####[facility] Cjztmclcsw8770 [place] [address]Dr. Antonella Medrano HSTROP 57.9 pg/mL Critically high 4.0-51.3 [facility] Comment on above: Result Comment: CUT- OFF POINTS HAVE BEEN ESTABLISHED BASED ON THE FOURTH UNIVERSAL DEFINITIONS OF MYOCARDIALINFARCTION. THE UPPER REFERENCE LIMIT (URL) OF TROPONIN, DEFINED THE 99TH PERCENTILE OFcTnI DISTRIBUTION IN A REFERENCE POPULATION, HAS BEEN CONFIRMED THE DECISION THRESHOLDFOR [place] DIAGNOSIS. Performed By: #### C FERNANDEZ, BMP ####[facility] Wiqrmqscwm1173 [place] [address]Dr. Antonella Medrano CHRISTOPHER 100 ng/mL Critically high 9-82 [facility] Comment on above: Performed By: #### C FERNANDEZ, BMP ####[facility] Snftlkgugv9139 [place] [address]Dr. Antonella Mitchell CBC AUTO DIFFon 05-13-2022 BASO # 0.0 103/ul Normal 0.0-0.1 [facility] Comment on above: Performed By: #### C BC ####[facility] Chxzngxxib1713 [place] [address]Dr. Antonella Mitchell Basophils/100 WBC (Bld) 0.3 % Normal 0.2-2.0 [facility] Comment on above: Performed By: #### C BC ####[facility] Qckmhamupc7[address] [place] [id number]. Mariafilemon Medrano EO # 0.1 103/ul Normal 0.0-0.7 [facility] Comment on above: Performed By: #### C BC ####[facility] [address]qvc[address] [place] [id number]. Antonella Medrano Eosinophils/100 WBC (Bld) 1.6 % Normal 0.9-7.0 [facility] Comment on above: Performed By: #### C BC ####[facility] Hzvlakrlns97[address] [place], [place] [address]Dr. Antonella Medrano Erythrocyte distribution width (RBC) [Ratio] 13.7 % Normal 11.0-15.0 [facility] Comment on above: Performed By: #### C BC ####[facility] Kyhavlhmda[address] [place], [place] [address]Dr. Antonella Medrano Hematocrit (Bld) [Volume fraction] 43.1 % Normal 36.0-48.0 [facility] Comment on above: Performed By: #### C BC ####[facility] Huvjfiefkr512[address] [place], [place] [address]Dr. Antonella Medrano Hemoglobin (Bld) [Mass/Vol] 14.1 g/dL Normal 12.0-16.0 [facility] Comment on above: Performed By: #### C BC ####[facility] Oxhrizpqsc9289[address] [place], [place] [address]Dr. Antonella Medrano IG # 0.10 10e3/ul Critically high 0.00-0.03 [facility] Comment on above: Performed By: #### C BC ####[facility] Kyhaczyfnr79[address] [place], [place] [address]Dr. Antonella Medrano IG % 1.2 % Critically high 0.0-0.5 [facility] Comment on above: Performed By: #### C BC ####[facility] Udffdysbls05[address] [place], [place] [address]Dr. Antonella Medrano LYMPH # 2.3 103/ul Normal 1.2-3.8 [facility] Comment on above: Performed By: #### C BC ####[facility] Ysznedorwk2287[address] [place], [place] [address]Dr. Antonella Medrano Lymphocytes/100 WBC (Bld) 26.2 % Normal 20.5-60.0 [facility] Comment on above: Performed By: #### C BC ####[facility] Gkzgnaubge94[address] [place] [id number]. Antonella Medrano MANUAL DIFF REQ NO Normal [facility] Comment on above: Performed By: #### C BC ####[facility] Sgskjckaog13[address] [place] [id number]. Antonella Mitchell MCH (RBC) [Entitic mass] 28.8 pg Normal 26.7-34.0 [facility] Comment on above: Performed By: #### C BC ####[facility] Ltgdjzlqxi4782 [place] [id number]. Antonella Mitchell MCHC (RBC) [Mass/Vol] 32.7 g/dL Normal 29.9-35.2 [facility] Comment on above: Performed By: #### C BC ####[facility] Mwupnnqeky7829[address] [place], [place] [address]Dr. Antonella Medrano MCV (RBC) [Entitic vol] 88.0 fL Normal 81.0-99.0 [facility] Comment on above: Performed By: #### C BC ####[facility] Gbkhmoohod17[address] [place], [place] [address]Dr. Antonella Mitchell MONO # 0.8 103/ul Normal 0.3-0.8 [facility] Comment on above: Performed By: #### C BC ####[facility] Fanwnlaeyr5969[address] [place], [place] [address]Dr. Antonella Medrano Monocytes/100 WBC (Bld) 9.3 % Normal 1.7-12.0 [facility] Comment on above: Performed By: #### C BC ####[facility] Xkdfrajtod[address] [place], [place] [id number]. Mariafilemon Mitchell NEUT # 5.3 103/ul Normal 1.4-6.5 [facility] Comment on above: Performed By: #### C BC ####[facility] Ldrqnqofgp16[address] [place], [place] [id number]. Antonella Medrano Neutrophils/100 WBC (Bld) 61.4 % Normal 43.0-75.0 [facility] Comment on above: Performed By: #### C BC ####[facility] Roravocjco5361 [place] [id number]. Antonella Medrano Platelet mean volume (Bld) [Entitic vol] 10.6 fL Normal 9.5-13.5 [facility] Comment on above: Performed By: #### C BC ####[facility] Dskyvxcyvg4274 [place] [id number]. Antonella Medrano PLT 291 103/ul Normal 150-450 [facility] Comment on above: Performed By: #### C BC ####[facility] Uxbdyciscv504[address] [place], [place] [address]Dr. Antonella Medrano RBC 4.90 106/ul Normal 4.20-5.40 [facility] Comment on above: Performed By: #### C BC ####[facility] Hswbhukngd855[address] [place], [place] [address]Dr. Antonella Medrano WBC 8.7 103/ul Normal 4.0-11.0 [facility] Comment on above: Performed By: #### C BC ####[facility] Hmgubipdco2716[address] [place], [place] [address]Dr. Antonella Medrano BASO # 0.1 103/ul Normal 0.0-0.1 [facility] Comment on above: Performed By: #### C BC ####[facility] Aqaahggpog1629[address] [place], [place] [address]Dr. Antonella Medrano Basophils/100 WBC (Bld) 0.5 % Normal 0.2-2.0 [facility] Comment on above: Performed By: #### C BC ####[facility] Haheqiejfb2822[address] [place], [place] [address]Dr. Antonella Medrano EO # 0.1 103/ul Normal 0.0-0.7 [facility] Comment on above: Performed By: #### C BC ####[facility] Nemtwnzdfo412[address] [place], [place] [address]Dr. Antonella Medrano Eosinophils/100 WBC (Bld) 1.3 % Normal 0.9-7.0 [facility] Comment on above: Performed By: #### C BC ####[facility] Awxpezejcd3[address] [place] [address]Dr. Antonella Medrano Erythrocyte distribution width (RBC) [Ratio] 13.7 % Normal 11.0-15.0 [facility] Comment on above: Performed By: #### C BC ####[facility] Hqhujnxizk7664[address] [place], [place] [address]Dr. Antonella Medrano Hematocrit (Bld) [Volume fraction] 45.2 % Normal 36.0-48.0 [facility] Comment on above: Performed By: #### C BC ####[facility] Bpzgedcfhy147[address] [place], [place] [address]Dr. Antonella Medrano Hemoglobin (Bld) [Mass/Vol] 14.9 g/dL Normal 12.0-16.0 [facility] Comment on above: Performed By: #### C BC ####[facility] Eeusjkegnu194[address] [place], [place] [address]Dr. Antonella Medrano IG # 0.14 10e3/ul Critically high 0.00-0.03 [facility] Comment on above: Performed By: #### C BC ####[facility] Okdejafppu913[address] [place], [place] [address]Dr. Antonella Medrano IG % 1.4 % Critically high 0.0-0.5 [facility] Comment on above: Performed By: #### C BC ####[facility] Vwsyzebceq[address] [place], [place] [address]Dr. Antonella Medrano LYMPH # 1.7 103/ul Normal 1.2-3.8 [facility] Comment on above: Performed By: #### C BC ####[facility] Mbedbdorfr814[address] [place], [place] [address]Dr. Antonella Medrano Lymphocytes/100 WBC (Bld) 16.1 % Critically low 20.5-60.0 [facility] Comment on above: Performed By: #### C BC ####[facility] Igiuzhlzsg1826[address] [place], [place] [address]Dr. Antonella Medrano MANUAL DIFF REQ NO Normal [facility] Comment on above: Performed By: #### C BC ####[facility] Ubysrxeoii7[address] [place] [address]Dr. Antonella Medrano MCH (RBC) [Entitic mass] 29.0 pg Normal 26.7-34.0 [facility] Comment on above: Performed By: #### C BC ####[facility] Sgifucunmt634[address] [place], [place] [address]Dr. Antonella Medrano MCHC (RBC) [Mass/Vol] 33.0 g/dL Normal 29.9-35.2 [facility] Comment on above: Performed By: #### C BC ####[facility] Rewpxlpghp044[address] [place], [place] [address]Dr. Antonella Medrano MCV (RBC) [Entitic vol] 87.9 fL Normal 81.0-99.0 [facility] Comment on above: Performed By: #### C BC ####[facility] Aordbysaut53[address] [place], [place] [address]Dr. Antonella Mitchell MONO # 1.0 103/ul Critically high 0.3-0.8 [facility] Comment on above: Performed By: #### C BC ####[facility] Ndxiqzbtdt635[address] [place], [place] [address]Dr. Antonella Mitcehll Monocytes/100 WBC (Bld) 9.2 % Normal 1.7-12.0 [facility] Comment on above: Performed By: #### C BC ####[facility] Qwpiuqsvpn97[address] [place], [place] [address]Dr. Antonella Medrano NEUT # 7.4 103/ul Critically high 1.4-6.5 [facility] Comment on above: Performed By: #### C BC ####[facility] Fjigockkzf6[address] [place], [place] [address]Dr. Antonella Mitchell Neutrophils/100 WBC (Bld) 71.5 % Normal 43.0-75.0 [facility] Comment on above: Performed By: #### C BC ####[facility] Bhnsqgqzdm450[address] [place], [place] [address]Dr. Antonella Medrano Platelet mean volume (Bld) [Entitic vol] 10.4 fL Normal 9.5-13.5 [facility] Comment on above: Performed By: #### C BC ####[facility] Bidlgqixim[address] [place], [place] [address]Mg. Antonella Medrano PLT 289 103/ul Normal 150-450 [facility] Comment on above: Performed By: #### C BC ####[facility] Jrmnrfxioh5491 [place], [place] [address]Dj. Antonella Medrano RBC 5.14 106/ul Normal 4.20-5.40 [facility] Comment on above: Performed By: #### C BC ####[facility] Iqjqbysojh3773 [place], [place] [address]Tk. Antonella Medrano WBC 10.3 103/ul Normal 4.0-11.0 [facility] Comment on above: Performed By: #### C BC ####[facility] Vcjcomvlge5211 [place], [place] [address]Nu. Antonella Medrano CT HEAD WO CONon 05-13-2022 CT HEAD WO CON Normal [facility] CULTURE URINEon 05-13-2022 CULTURE URINE Culture Observations : HEAVY GROWTH OF MIXED GENITAL LUCY. NO POTENTIAL PATHOGENS SEEN. Normal [facility] Comment on above: Performed By: #### U RCX ####[facility] Tpohohkfcm8213 [place], [place] [address]Wu. Antonella Medrano Covid-19 PCR (CVDTB)on 04-24 SARS-CoV-2 (COVID-19) RNA TAISHA+probe Ql (Unsp spec) Not detected Normal NOT DETECTED [facility] Comment on above: Result Comment: When [...] for this test is supported by the Behavioral Therapist of Health and Human Service's declaration that [...] be used). Performed By: #### C VDTB ####[facility] Qkavkwvawk45[address] [place] [address]Dr. Antonella Medrano ER URINE PROFILEon 2 Bilirubin Ql (U) Negative Normal NEGATIVE [facility] Comment on above: Performed By: #### U MICRO, ERUR ####[facility] Xhaexeoxdi536[address] [place], [place] [address]Dr. Antonella Medrano Clarity (U) CLEAR Normal CLEAR [facility] Comment on above: Performed By: #### U MICRO, ERUR ####[facility] Tqzqcaardd4[address] [place], [place] [address]Dr. Antonella Medrano Color (U) YELLOW Normal YELLOW [facility] Comment on above: Performed By: #### U MICRO, ERUR ####[facility] Qchmakmzmd23[address] [place], [place] [address]Dr. Antonella Medrano ERUAHD A micrscopic examina tion will be performed if indicated. Normal [facility] Comment on above: Performed By: #### U MICRO, ERUR ####[facility] Zvkjsmqyds516[address] [place], [place] [address]Dr. Antonella Medrano Glucose Ql (U) >1000 Abnormal NEGATIVE [facility] Comment on above: Performed By: #### U MICRO, ERUR ####[facility] Ymqcfppasl3424[address] [place], [place] [address]Dr. Antonella Medrano Hemoglobin Ql (U) SMALL Abnormal NEGATIVE [facility] Comment on above: Performed By: #### U MICRO, ERUR ####[facility] Hbvrvooqnz1590[address] [place], [place] [address]Dr. Antonella Medrano Ketones Ql (U) Negative Normal NEGATIVE [facility] Comment on above: Performed By: #### U MICRO, ERUR ####[facility] Glmerijjmw068[address] [place], [place] [address]Dr. Antonella Medrano LEUKOCYTES SMALL Abnormal NEGATIVE [facility] Comment on above: Performed By: #### U MICRO, ERUR ####[facility] Vlmsxfqaxy07[address] [place] [address]Dr. Antonella Mitchell Nitrite Ql (U) Negative Normal NEGATIVE [facility] Comment on above: Performed By: #### U MICRO, ERUR ####[facility] Xiqumnwzyt9843 [place] [address]Dr. Antonella Medrano pH (U) 5.5 [pH] Normal 5-9 [facility] Comment on above: Performed By: #### U MICRO, ERUR ####[facility] Fumkzakzug6[address] [place], [place] [address]Dr. Antonella Medrano Protein (U) [Mass/Vol] 100 mg/dL Abnormal NEGAT LAZ/ TRACE [facility] Comment on above: Performed By: #### U MICRO, ERUR ####[facility] Ddidddbldm535[address] [place], [place] [address]Dr. Antonella Medrano SPEC GRAVITY >=1.030 Abnormal 1.005-<=1.0 25 [facility] Comment on above: Performed By: #### U MICRO, ERUR ####[facility] Vsmmglelul466[address] [place], [place] [address]Dr. Antonella Medrano UR MICRO IND INDICATED Normal [facility] Comment on above: Performed By: #### U MICRO, ERUR ####[facility] Tufndgsfkm227[address] [place], [place] [address]Dr. Antonella Medrano Urobilinogen Qn (U) 0.2 {Oleg'U}/dL Normal 0.2 - 1. 0 [facility] Comment on above: Performed By: #### U MICRO, ERUR ####[facility] Tlcbqpzaxf658[address] [place], [place] [address]Dr. Antonella Medrano ETHANOL (BLD ALC)on 05-13-20 ALC NOTE NOTE: 80 mg/dl is th e legal limit for a blood alcohol level Normal [facility] Comment on above: Performed By: #### E TH ####[facility] Acebzdpceu0339[address] [place], [place] [address]Dr. Antonella Medrano Ethanol [Mass/Vol] mg/dL Normal [facility] Comment on above: Performed By: #### E TH ####[facility] Iidqjcmmrd02[address] [place] [address]Dr. Antonella Medrano LACTATE/LACTIC ACIDon 2021 Lactate [Moles/Vol] 1.3 mmol/L Normal 0.4-1.9 [facility] Comment on above: Performed By: #### L ACT ####[facility] Nckubwttuk[address] [place], [place] [address]Dr. Antonella Medrano POINT OF CARE GLUCOSEon 04-24 Glucose [Mass/Vol] 164 mg/dL Critically high -106 [facility] Comment on above: Performed By: #### P OCGLUC ####[facility] Ewkympoqee789[address] [place], [place] [address]Dr. Antonella Medrano Glucose [Mass/Vol] 172 mg/dL Critically high [address] [place] [address] Comment on above: Performed By: #### P OCGLUC ####[facility] Ztqtubayzd16[address] [place], [place] [address]Dr. Antonella Medrano Performed By: #### B MP ####[facility] Ywqdozzqlr077[address] [place], [place] [address]Dr. Antonella Medrano Glucose [Mass/Vol] 253 mg/dL Critically high [address] [place] [address] Comment on above: Performed By: #### P OCGLUC ####[facility] Qtcfmmjbve[address] [place], [place] [address]Dr. Antonella Medrano Glucose [Mass/Vol] 146 mg/dL Critically high [address] [place] [address] Comment on above: Performed By: #### P OCGLUC ####[facility] Pvdrpnradr080[address] [place], [place] [address]Dr. Antonella Medrano PROF CHEM 8 (BAS METB)on Anion gap [Moles/Vol] 11.4 mmol/L Normal [facility] Comment on above: Performed By: #### B MP ####[facility] Zdplhfqdmc517[address] [place], [place] [address]Dr. Antonella Medrano Calcium [Mass/Vol] 8.4 mg/dL Critically low 8.5-10.1 [facility] Comment on above: Performed By: #### B MP ####[facility] Ryoewedrsc[address] [place] [address]Dr. Mariafilemon Mitchell Chloride [Moles/Vol] 101 mmol/L Normal 98-107 [facility] Comment on above: Performed By: #### B MP ####[facility] Veynbgawvu67[address] [place] [id number]. Mariafilemon Mitchell CO2 [Moles/Vol] 26.5 mmol/L Normal 21.0-32.0 [facility] Comment on above: Performed By: #### B MP ####[facility] Uiqsedxdcb1488 [place] [address]Dr. Antonella Medrano Creatinine [Mass/Vol] 1.06 mg/dL Critically high 0.55-1.02 [facility] Comment on above: Performed By: #### B MP ####[facility] Jbkrfzlbzj250[address] [place], [place] [address]Dr. Mariafilemon Mitchell EGFR-AF MEXICAN >60 Normal >=60 [facility] Comment on above: Performed By: #### B MP ####[facility] Mlyngkiwtw17[address] [place], [place] [address]Dr. Mariafilemon Mitchell EGFR-NON AF MEXICAN 52 mL/min/1.73m2 Critically low >=60 [facility] Comment on above: Performed By: #### B MP ####[facility] Fdsrzokzya5475[address] [place], [place] [address]Dr. Antonella Medrano Potassium [Moles/Vol] 3.9 mmol/L Normal 3.5-5.1 [facility] Comment on above: Performed By: #### B MP ####[facility] Nzpgoiiics76[address] [place] [address]Dr. Antonella Medrano Sodium [Moles/Vol] 135 mmol/L Critically low 136-145 [facility] Comment on above: Performed By: #### B MP ####[facility] Xafrqoubdd6783 [place] [address]Dr. Antonella Medrano Urea nitrogen [Mass/Vol] 28.0 mg/dL Critically high 7.0-18.0 [facility] Comment on above: Performed By: #### B MP ####[facility] Bfnljisqhp1135 [place] [address]Dr. Antonella Medrano Urea nitrogen/Creatinine [Mass ratio] 26.4 mg/mg Normal [facility] Comment on above: Performed By: #### B MP ####[facility] Wkbkgfsvjx5754 [place] [address]Dr. Antonella Medrano Anion gap [Moles/Vol] 12.0 mmol/L Normal [facility] Comment on above: Performed By: #### C MADM, BMP ####[facility] Jputbutmnx1837[address] [place], [place] [address]Dr. Antoenlla Mitchell Calcium [Mass/Vol] 8.8 mg/dL Normal 8.5-10.1 [facility] Comment on above: Performed By: #### C MADM, BMP ####[facility] Rrbuptbqgb[address] [place], [place] [address]Dr. Antonella Medrano Chloride [Moles/Vol] 101 mmol/L Normal 98-107 [facility] Comment on above: Performed By: #### C VAIBHAVM, BMP ####[facility] Wclbffpawc[address] [place], [place] [address]Dr. Antonella Mitchell CO2 [Moles/Vol] 28.2 mmol/L Normal 21.0-32.0 [facility] Comment on above: Performed By: #### C MADM, BMP ####[facility] Wckeclizuv459[address] [place], [place] [address]Dr. Antonella Mitchell Creatinine [Mass/Vol] 1.23 mg/dL Critically high 0.55-1.02 [facility] Comment on above: Performed By: #### C MADM, BMP ####[facility] Vokkloynch[address] [place], [place] [address]Dr. Mariafilemon Mitchell EGFR-AF MEXICAN 53 mL/min/1.73m2 Critically low >=60 [facility] Comment on above: Performed By: #### C MADM, BMP ####[facility] Ionxbmvcwt7428[address] [place], [place] [address]Dr. Antonella Medrano EGFR-NON AF MEXICAN 44 mL/min/1.73m2 Critically low >=60 [facility] Comment on above: Performed By: #### C FERNANDEZ, BMP ####[facility] Rjayrzscch[address] [place] [address]Dr. Antonella Medrano Glucose [Mass/Vol] 173 mg/dL Critically high 74-106 [facility] Comment on above: Performed By: #### C FERNANDEZ, BMP ####[facility] Luhkymlkgk529[address] [place], [place] [address]Dr. Antonella Medrano Potassium [Moles/Vol] 4.2 mmol/L Normal 3.5-5.1 [facility] Comment on above: Performed By: #### Francis PRESLEY, BMP ####[facility] Ehzlbreyus67[address] [place], [place] [address]Dr. Antonella Medrano Sodium [Moles/Vol] 137 mmol/L Normal 136-145 [facility] Comment on above: Performed By: #### Francis PRESLEY, BMP ####[facility] Xlhnxipdnj399[address] [place], [place] [address]Dr. Antonella Medrano Urea nitrogen [Mass/Vol] 29.0 mg/dL Critically high 7.0-18.0 [facility] Comment on above: Performed By: #### Francis PRESLEY, BMP ####[facility] Ndynovhhcb1164[address] [place], [place] [address]Dr. Antonella Mitchell Urea nitrogen/Creatinine [Mass ratio] 23.6 mg/mg Normal [facility] Comment on above: Performed By: #### Francis PRESLEY, BMP ####[facility] Mtzwqcftkw95[address] [place], [place] [address]Dr. Antonella Mitchell URINE MICROSCOPIC ONLYon BACTERIA LARGE Abnormal NONE SEEN [facility] Comment on above: Performed By: #### U MICRO, ERUR ####[facility] Akhifrgber996[address] [place], [place] [address]Dr. Antonella Mitchell Bacteria identified Cx Nom (U) INDICATED Normal [facility] Comment on above: Performed By: #### U MICRO, ERUR ####[facility] Rrddpusmsp8[address] [place], [place] [address]Dr. Antonella Medrano CAST NONE SEEN Normal NONE SEEN [facility] Comment on above: Performed By: #### U MICRO, ERUR ####[facility] [address]qetvdxtl38[address] [place] [address]Dr. Antonella Medrano Crystals LM Nom (Urine sed) NONE SEEN Normal NONE SEEN [facility] Comment on above: Performed By: #### U MICRO, ERUR ####[facility] Hdjykmomgc75[address] [place] [address]Dr. Antonella Mitchell Epithelial cells LM Ql (Urine sed) RARE Normal NONE SEEN /RARE [facility] Comment on above: Performed By: #### U MICRO, ERUR ####[facility] Nmgypodxqq28[address] [place] [address]Dr. Antonella Medrano MUCOUS NONE SEEN Normal NONE SEEN [facility] Comment on above: Performed By: #### U MICRO, ERUR ####[facility] Atpavfassz44[address] [place] [address]Dr. Antonella Medrano RBC 0-2 Normal 0-2 [facility] Comment on above: Performed By: #### U MICRO, ERUR ####[facility] Fbkdsmaswu2755 [place] [address]Dr. Mariafilemon Medrano WBC 10-20 Abnormal NONE SEEN [facility] Comment on above: Performed By: #### U MICRO, ERUR ####[facility] Azbsbnrsjt7188 [place] [address]Dr. Antonella Medrano YEAST PRESENT Abnormal NONE SEEN [facility] Comment on above: Performed By: #### U MICRO, ERUR ####[facility] Dlxrensspt[address] [place] [address]Dr. Antonella Medrano XR CHEST 1 Von 05-13-2022 XR CHEST 1 V Normal [facility] POC GLUCOSE LABon 03-25-2022 Glucose [Mass/Vol] 180 mg/dL High 70-100 [facility] Comment on above: Performed By: #### 1 0070, [id number] #### [facility] [address] [place] [address], [facility] Glucose [Mass/Vol] 189 mg/dL High 70-100 [facility] Comment on above: Performed By: #### 1 0070, [id number] #### [facility] [address] [place] [address], [place] POC GLUCOSE LABon 03-24-2022 Glucose [Mass/Vol] 198 mg/dL High 70-100 [facility] Comment on above: Performed By: #### 3 5200 #### [facility] [address] [place] [address], [place] Glucose [Mass/Vol] 175 mg/dL High 70-100 [facility] Comment on above: Performed By: #### 8 5499 #### [facility] [address] [place] [address], [place] Glucose [Mass/Vol] 148 mg/dL High 70-100 [facility] Comment on above: Performed By: #### 8 5499 #### [facility] [address] [place] [address], [place] Glucose [Mass/Vol] 85 mg/dL Normal 70-100 [facility] Comment on above: Performed By: #### 3 5200 #### [facility] [address] [place] [address], [place] POC GLUCOSE LABon 03-23-2022 Glucose [Mass/Vol] 173 mg/dL High 70-100 [facility] Comment on above: Performed By: #### 8 5499 #### [facility] [address] [place] [address], [place] Glucose [Mass/Vol] 190 mg/dL High 70-100 [facility] Comment on above: Performed By: #### 8 5499 #### [facility] [address] [place] [address], [place] Glucose [Mass/Vol] 141 mg/dL High 70-100 [facility] Comment on above: Performed By: #### 8 5499 #### [facility] [address] [facility] [address], [place] Glucose [Mass/Vol] 188 mg/dL High 70-100 [facility] Comment on above: Performed By: #### 8 5499 #### [facility] [address] [place] [address], [place] POC GLUCOSE LABon 03-22-2022 Glucose [Mass/Vol] 225 mg/dL High 70-100 [facility] Comment on above: Performed By: #### 1 0070, [id number] #### [facility] [address] [place] [address], [place] Glucose [Mass/Vol] 241 mg/dL High 70-100 [facility] Comment on above: Performed By: #### 8 5499 #### [facility] [address] [facility] [place] [address], [place] Glucose [Mass/Vol] 182 mg/dL High 70-100 [facility] Comment on above: Performed By: #### 8 5499 #### [facility] [address] [place] [address], [place] Glucose [Mass/Vol] 212 mg/dL High 70-100 [facility] Comment on above: Performed By: #### 1 0070, 23595 #### [facility] [address] [facility] [place] [address], [facility] MRI HIP WO CONTRAST RIGHTon 03-21-2022 MRI HIP WO CONTRAST RIGHT [facility] Department of Radiology [address] [place] [address] [phone] Patient Name: KIARA BLANC : 1955 Sex: F Age: Race: White Pt. Location: [id number] Patient Status: I Ordered Date: 2022 2:20:00 [...] fracture. Electronically signed: Kj Pedersen. Transcribed by: [email or web address], User Resident: Electronically Signed by: KJ PEDERSEN @ 03/21/2022 12:05 PM Normal [facility] Comment on above: Order Comment: No: D o not add to previous draw POC GLUCOSE LABon 03-21-2022 Glucose [Mass/Vol] 270 mg/dL High 70-100 [facility] Comment on above: Performed By: #### 1 0070, [id number] #### [facility] [address] [place] [address], [facility] Glucose [Mass/Vol] 256 mg/dL High 70-100 [facility] Comment on above: Performed By: #### 8 5499 #### [facility] [address] [facility] [place] [address], [facility] Glucose [Mass/Vol] 250 mg/dL High 70-100 [facility] Comment on above: Performed By: #### 8 5499 #### [facility] [address] [place] [address], [facility] Glucose [Mass/Vol] 223 mg/dL High 70-100 [facility] Comment on above: Performed By: #### 3 5200 #### [facility] [address] [place] [address], [facility] CT LOWER EXTREMITY WO CONTRA ST RIGHTon 2022 CT LOWER EXTREMITY WO CONTRAST RIGHT [facility] Department of Radiology [address] [place] [phone] Patient Name: KIARA BLANC : 1955 Sex: F Age: Race: White Pt. Location: [id number] Patient Status: I Ordered Date: 2022 12:00:00 [...] fracture. Electronically signed: Rodo Melissa. Transcribed by: [email or web address], User Resident: Electronically Signed by: RODO MELISSA @ 2022 01:26 PM Normal [facility] Comment on above: Order Comment: No: D o not add to previous draw HIPS BILATERAL 2 VWS WITH PE LVISon 2022 HIPS BILATERAL 2 VWS WITH PELVIS [facility] Department of Radiology [address] [place] [phone] Patient Name: KIARA BLANC : 1955 Sex: F Age: Race: White Pt. Location: [id number] Patient Status: I Ordered Date: 2022 9:05:00 [...] indicated. Electronically signed: Rodo Melissa. Transcribed by: [email or web address], User Resident: Electronically Signed by: RODO MELISSA @ 2022 02:13 PM Normal [facility] Comment on above: Order Comment: R/O F X, R pelvic crest, greater trochanter LUMBAR SPINE 2 OR 3 Son LUMBAR SPINE 2 OR 3 S [facility] Department of Radiology [address] [place] [phone] Patient Name: KIARA BLANC : 1955 Sex: F Age: Race: White Pt. Location: [id number] Patient Status: I Ordered Date: 2022 9:10:00 AM Completed Date: 2022 09:57 AM Requesting Provider: DUY MCGEE Attending Provider: YRIS QUAN Report Copy To: Signs & Symptoms: Back Pain History: See Comments Comments: R/O Fx, fall in room, landed on coccyx, r/o compression fx Exam: LUMBAR SPINE 2 OR 3 S LUMBAR SPINE 2 OR 3 S 2022 9:57 AM CLINICAL INDICATIONS: Back Pain [...] described. Electronically signed: Rodo Melissa. Transcribed by: [email or web address], User Resident: Electronically Signed by: RODO MELISSA @ 2022 10:11 AM Normal [facility] Comment on above: Order Comment: No: D o not add to previous draw POC GLUCOSE LABon 2022 Glucose [Mass/Vol] 263 mg/dL High 70-100 [facility] Comment on above: Performed By: #### 3 5200 #### [facility] [address] [place] [address], [facility] Glucose [Mass/Vol] 245 mg/dL High 70-100 [facility] Comment on above: Performed By: #### 3 5200 #### [facility] [address] [facility] [place] [address], [place] Glucose [Mass/Vol] 212 mg/dL High 70-100 [facility] Comment on above: Performed By: #### 3 5200 #### [facility] [address] [facility] [place] [address], [facility] Glucose [Mass/Vol] 153 mg/dL High 70-100 [facility] Comment on above: Performed By: #### 8 5499 #### [facility] [address] [place] [address], [place] TSH3on 2022 TSH 3RD GENERATION 1.23 uIU/mL Normal 0.34-5.60 [facility] Comment on above: Order Comment: No: D o not add to previous draw Performed By: #### 1 0070, 64084 #### [facility] [address] [facility] [place] [address], [facility] VITAMIN B12on 2022 Cobalamin (Vitamin B12) [Mass/Vol] 436 pg/mL Normal 180-914 [facility] Comment on above: Order Comment: No: D o not add to previous draw Result Comment: REFE RENCE RANGES: 180-914 pg/mL Normal 145-179 pg/mL Indeterminate <145 pg/mL Deficient Performed By: #### 1 0070, [id number] #### [facility] [address] [place] [address], [facility] VITAMIN D 25-HYDROXYon 03-20 VITAMIN D 25-OH 20.1 ng/mL Low 30.0-80.0 [facility] Comment on above: Result Comment: >80. 0 Toxicity possible Performed By: #### 1 69, 61817 #### [facility] [address] [facility] [place] [address], [facility] POC GLUCOSE LABon 03-19-2022 Glucose [Mass/Vol] 140 mg/dL High 70-100 [facility] Comment on above: Performed By: #### 8 5499 #### [facility] [address] [facility] [place] [address], [place] Glucose [Mass/Vol] 111 mg/dL High 70-100 [facility] Comment on above: Performed By: #### 1 0070, 47716 #### [facility] [address] [facility] [place] [address], [place] Glucose [Mass/Vol] 143 mg/dL High 70-100 [facility] Comment on above: Performed By: #### 8 5499 #### [facility] [address] [facility] [place] [address], [place] Glucose [Mass/Vol] 232 mg/dL High 70-100 [facility] Comment on above: Performed By: #### 3 5200 #### [facility] [address] [facility] [place] [address], [place] *URINE CULTUREon 03-18-2022 *URINE CULTURE Clinical Report: (D) Specimen/Source: URINE/CLEAN VOID URINE Collected: 03/18/2022 12:00 Status: Final Last Updated: 2022 10:33 ISO (Final) >100,000 Cfu/Ml Uro-Genital Lucy ISO (Final) Presumptive Grover glabrata >100,000 Cfu/Ml Normal [facility] Comment on above: Performed By: #### 8 5499 #### [facility] [address] [place] [address], [place] MAGNESIUM BLOODon 03-18-2022 Magnesium [Mass/Vol] 1.9 mg/dL Normal 1.9-2.7 [facility] Comment on above: Order Comment: No: D o not add to previous draw Performed By: #### 1 0070, 71355 #### [facility] [address] [place] [address], [place] POC GLUCOSE LABon 03-18-2022 Glucose [Mass/Vol] 256 mg/dL High 70-100 [facility] Comment on above: Performed By: #### 8 5499 #### [facility] [address] [place] [address], [place] Glucose [Mass/Vol] 262 mg/dL High 70-100 [facility] Comment on above: Performed By: #### 3 5200 #### [facility] [address] [place] [address], [place] Glucose [Mass/Vol] 215 mg/dL High 70-100 [facility] Comment on above: Performed By: #### 3 5200 #### [facility] [address] [place] [address], [place] Glucose [Mass/Vol] 361 mg/dL High 70-100 [facility] Comment on above: Performed By: #### 8 5499 #### [facility] [address] [place] [address], [place] URINALYSIS REFLEXon 03-18-20 22 Appearance (U) TURBID Abnormal CLEAR [facility] Comment on above: Order Comment: Yes: Add to Previous draw if able Criteria for reflexing a culture was not met. Please call the lab at [phone] within 24 hours of collection time if culture is needed Performed By: #### 3 0965 #### [facility] [address] [place] [address], [facility] Bilirubin Ql (U) Negative Normal NEGATIVE [facility] Comment on above: Order Comment: Yes: Add to Previous draw if able Criteria for reflexing a culture was not met. Please call the lab at [phone] within 24 hours of collection time if culture is needed Performed By: #### 3 0965 #### [facility] [address] [place] [address], [facility] BUDDING YEAST MANY Abnormal NONE SEEN [facility] Comment on above: Order Comment: Yes: Add to Previous draw if able Criteria for reflexing a culture was not met. Please call the lab at [phone] within 24 hours of collection time if culture is needed Performed By: #### 3 0965 #### [facility] [address] [facility] [place] [address], [facility] Color (U) YELLOW Normal YELLOW [facility] Comment on above: Order Comment: Yes: Add to Previous draw if able Criteria for reflexing a culture was not met. Please call the lab at [phone] within 24 hours of collection time if culture is needed Performed By: #### 3 0965 #### [facility] [address] [place] [address], [facility] EPIS MANY Abnormal FEW,OCC,NON E SEEN [facility] Comment on above: Order Comment: Yes: Add to Previous draw if able Criteria for reflexing a culture was not met. Please call the lab at [phone] within 24 hours of collection time if culture is needed Performed By: #### 3 0965 #### [facility] [address] [place] [address], [facility] Glucose Ql (U) >=500 Abnormal NEGATIVE [facility] Comment on above: Order Comment: Yes: Add to Previous draw if able Criteria for reflexing a culture was not met. Please call the lab at [phone] within 24 hours of collection time if culture is needed Performed By: #### 3 0965 #### [facility] [address] [place] [address], [facility] Hemoglobin Ql (U) SMALL Abnormal NEGATIVE [facility] Comment on above: Order Comment: Yes: Add to Previous draw if able Criteria for reflexing a culture was not met. Please call the lab at [phone] within 24 hours of collection time if culture is needed Performed By: #### 3 0965 #### [facility] [address] [place] [address], [facility] KETONE Negative Normal NEGATIVE [facility] Comment on above: Order Comment: Yes: Add to Previous draw if able Criteria for reflexing a culture was not met. Please call the lab at [phone] within 24 hours of collection time if culture is needed Performed By: #### 3 0965 #### [facility] [address] [place] [address], [facility] LEUK TESHA LARGE Abnormal NEGATIVE [facility] Comment on above: Order Comment: Yes: Add to Previous draw if able Criteria for reflexing a culture was not met. Please call the lab at [phone] within 24 hours of collection time if culture is needed Performed By: #### 3 0965 #### [facility] [address] [place] [address], [facility] Nitrite Ql (U) Negative Normal NEGATIVE [facility] Comment on above: Order Comment: Yes: Add to Previous draw if able Criteria for reflexing a culture was not met. Please call the lab at [phone] within 24 hours of collection time if culture is needed Performed By: #### 3 0965 #### [facility] [address] [place] [address], [facility] pH (U) 6.0 [pH] Normal 5.0-8.0 [facility] Comment on above: Order Comment: Yes: Add to Previous draw if able Criteria for reflexing a culture was not met. Please call the lab at [phone] within 24 hours of collection time if culture is needed Performed By: #### 3 0965 #### [facility] [address] Protein Ql (U) 30 mg/dL Abnormal NEGATIVE [facility] Comment on above: Order Comment: Yes: Add to Previous draw if able Criteria for reflexing a culture was not met. Please call the lab at 7668 within 24 hours of collection time if culture is needed Performed By: #### 3 0965 #### [facility] [address] RBC 6-10 Abnormal NONE SEEN [facility] Comment on above: Order Comment: Yes: Add to Previous draw if able Criteria for reflexing a culture was not met. Please call the lab at [phone] within 24 hours of collection time if culture is needed Performed By: #### 3 0965 #### [facility] [address] SPEC GRAV 1.009 Low 1.015-1.020 [facility] Comment on above: Order Comment: Yes: Add to Previous draw if able Criteria for reflexing a culture was not met. Please call the lab at [phone] within 24 hours of collection time if culture is needed Performed By: #### 3 0965 #### [facility] [address] WBC UA >100 Abnormal NONE SEEN [facility] Comment on above: Order Comment: Yes: Add to Previous draw if able Criteria for reflexing a culture was not met. Please call the lab at [phone] within 24 hours of collection time if culture is needed Performed By: #### 3 0965 #### [facility] [address] BASIC METABOLIC PANELon 06-2 Calcium [Mass/Vol] 8.3 mg/dL Low 8.6-10.3 [facility] Comment on above: Order Comment: No: D o not add to previous draw Performed By: #### 1 0070, 32631 #### [facility] [address] [place] [address], [place] Chloride [Moles/Vol] 106 mmol/L Normal 98-107 [facility] Comment on above: Order Comment: No: D o not add to previous draw Performed By: #### 1 69, 86342 #### [facility] [address] [place] [address], [place] CO2 [Moles/Vol] 24 mmol/L Normal 21-31 [facility] Comment on above: Order Comment: No: D o not add to previous draw Performed By: #### 1 69, 38206 #### [facility] [address] [place] [address], [place] Creatinine [Mass/Vol] 0.73 mg/dL Normal 0.60-1.20 [facility] Comment on above: Order Comment: No: D o not add to previous draw Performed By: #### 1 69, 65839 #### [facility] [address] [place] [address], [place] GFR/1.73 sq M.predicted among blacks MDRD (S/P/Bld) [Vol rate/Area] mL/min/{1.73_m2} Normal >60 [facility] Comment on above: Order Comment: No: D o not add to previous draw Performed By: #### 1 69, 78326 #### [facility] [address] [place] [address], [place] GFR/1.73 sq M.predicted among non-blacks MDRD (S/P/Bld) [Vol rate/Area] mL/min/{1.73_m2} Normal >60 [facility] Comment on above: Order Comment: No: D o not add to previous draw Performed By: #### 1 69, 06162 #### [facility] [address] [place] [address], [place] Glucose [Mass/Vol] 218 mg/dL High 70-100 [facility] Comment on above: Order Comment: No: D o not add to previous draw Performed By: #### 1 69, 14536 #### [facility] [address] [place] [id number], [facility] Potassium [Moles/Vol] 4.2 mmol/L Normal 3.5-5.1 [facility] Comment on above: Order Comment: No: D o not add to previous draw Performed By: #### 1 69, 04350 #### [facility] [address] [place] [address], [facility] Sodium [Moles/Vol] 136 mmol/L Normal 136-145 [facility] Comment on above: Order Comment: No: D o not add to previous draw Performed By: #### 1 69, 75418 #### [facility] [address] [place] [id number], [facility] Urea nitrogen [Mass/Vol] 18 mg/dL Normal 7-25 [facility] Comment on above: Order Comment: No: D o not add to previous draw Performed By: #### 1 69, 07434 #### [facility] [address] [facility] [place] [address], [facility] CBC W/DIFFon 03-17-2022 ABS IMM GRANS 0.1 10*3/uL Normal 0.0-0.2 [facility] Comment on above: Order Comment: No: D o not add to previous draw Performed By: #### 8 5439 #### [facility] [address] [place] [id number], [facility] ABS NEUTROPHILS 4.2 10*3/uL Normal 1.6-7.6 [facility] Comment on above: Order Comment: No: D o not add to previous draw Performed By: #### 8 5499 #### [facility] [address] [place] [address], [facility] Basophils (Bld) [#/Vol] 0.0 10*3/uL Normal 0.0-0.2 [facility] Comment on above: Order Comment: No: D o not add to previous draw Performed By: #### 8 5499 #### [facility] [address] [place] [address], [facility] Basophils/100 WBC (Bld) 0.4 % Normal 0.0-1.0 [facility] Comment on above: Order Comment: No: D o not add to previous draw Performed By: #### 8 5499 #### [facility] [address] [place] [address], [place] Eosinophils (Bld) [#/Vol] 0.2 10*3/uL Normal 0.0-0.5 [facility] Comment on above: Order Comment: No: D o not add to previous draw Performed By: #### 8 5499 #### [facility] [address] [place] [address], [facility] Eosinophils/100 WBC (Bld) 3.4 % Normal 0.0-6.0 [facility] Comment on above: Order Comment: No: D o not add to previous draw Performed By: #### 8 5499 #### [facility] [address] [place] [id number], [facility] Erythrocyte distribution width (RBC) [Ratio] 13.4 % Normal 11.5-15.0 [facility] Comment on above: Order Comment: No: D o not add to previous draw Performed By: #### 8 5499 #### [facility] [address] [place] [address], [facility] Hematocrit (Bld) [Volume fraction] 42.7 % Normal 36.0-45.0 [facility] Comment on above: Order Comment: No: D o not add to previous draw Performed By: #### 8 5499 #### [facility] [address] [place] [address], [place] Hemoglobin (Bld) [Mass/Vol] 13.8 g/dL Normal 12.0-15.0 [facility] Comment on above: Order Comment: No: D o not add to previous draw Performed By: #### 8 5499 #### [facility] [address] [place] [address], [facility] IMMATURE GRANS 0.8 % Normal 0.0-1.0 [facility] Comment on above: Order Comment: No: D o not add to previous draw Performed By: #### 8 5499 #### [facility] [address] [facility] [place] [id number], [facility] Lymphocytes (Bld) [#/Vol] 1.8 10*3/uL Normal 1.2-4.0 [facility] Comment on above: Order Comment: No: D o not add to previous draw Performed By: #### 8 5499 #### [facility] [address] [place] [id number], [facility] Lymphocytes/100 WBC (Bld) 25.8 % Normal 20.0-45.0 [facility] Comment on above: Order Comment: No: D o not add to previous draw Performed By: #### 8 5499 #### [facility] [address] [facility] [place] [id number], [facility] MCH (RBC) [Entitic mass] 28.3 pg Normal 27.0-33.0 [facility] Comment on above: Order Comment: No: D o not add to previous draw Performed By: #### 8 5499 #### [facility] [address] [facility] [place] [id number], [facility] MCHC (RBC) [Mass/Vol] 32.3 g/dL Normal 32.0-35.0 [facility] Comment on above: Order Comment: No: D o not add to previous draw Performed By: #### 8 5499 #### [facility] [address] [place] [id number], [facility] MCV (RBC) [Entitic vol] 87.7 fL Normal 82.0-98.0 [facility] Comment on above: Order Comment: No: D o not add to previous draw Performed By: #### 8 5499 #### [facility] [address] [place] [address], [facility] Monocytes (Bld) [#/Vol] 0.7 10*3/uL Normal 0.1-1.0 [facility] Comment on above: Order Comment: No: D o not add to previous draw Performed By: #### 8 [id number] #### [facility] [address] [place] [address], [facility] MONOS 9.9 % Normal 5.0-12.0 [facility] Comment on above: Order Comment: No: D o not add to previous draw Performed By: #### 8 5499 #### [facility] [address] [place] [address], [facility] Neutrophils/100 WBC (Bld) 59.7 % Normal 40.0-72.0 [facility] Comment on above: Order Comment: No: D o not add to previous draw Performed By: #### 8 5499 #### [facility] [address] [facility] [place] [address], [facility] Nucleated RBC/100 WBC (Bld) [Ratio] 0 % Normal 0-0 [facility] Comment on above: Order Comment: No: D o not add to previous draw Performed By: #### 8 [id number] #### [facility] [address] [facility] [place] [address], [facility] PLAT CNT 248 10*3/uL Normal 150-400 [facility] Comment on above: Order Comment: No: D o not add to previous draw Performed By: #### 8 [id number] #### [facility] [address] [place] [address], [facility] RBC (Bld) [#/Vol] 4.87 10*6/uL Normal 3.80-5.00 [facility] Comment on above: Order Comment: No: D o not add to previous draw Performed By: #### 8 5499 #### [facility] [address] [place] [address], [place] WBC (Bld) [#/Vol] 7.08 10*3/uL Normal 4.00-10.60 [facility] Comment on above: Order Comment: No: D o not add to previous draw Performed By: #### 8 5499 #### [facility] [address] [place] [address], [place] MAGNESIUM BLOODon 03-17-2022 Magnesium [Mass/Vol] 1.5 mg/dL Low 1.9-2.7 [facility] Comment on above: Order Comment: No: D o not add to previous draw Performed By: #### 1 0070, 07928 #### [facility] [address] [place] [address], [place] POC GLUCOSE LABon 03-17-2022 Glucose [Mass/Vol] 406 mg/dL High 70-100 [facility] Comment on above: Performed By: #### 1 0070, 03552 #### [facility] [address] [place] [address], [place] Glucose [Mass/Vol] 282 mg/dL High 70-100 [facility] Comment on above: Performed By: #### 8 5499 #### [facility] [address] [place] [address], [place] Glucose [Mass/Vol] 152 mg/dL High 70-100 [facility] Comment on above: Performed By: #### 8 5499 #### [facility] [address] [place] [address], [place] Glucose [Mass/Vol] 199 mg/dL High 70-100 [facility] Comment on above: Performed By: #### 3 5200 #### [facility] [address] [place] [address], [place] TROPONIN-Ion 03-17-2022 Troponin I.cardiac [Mass/Vol] 0.05 ng/mL High 0.00-0.04 [facility] Comment on above: Order Comment: No: D o not add to previous draw Result Comment: REFE RENCE RANGES: 0.00 - 0.04 ng/ml NORMAL 0.05 - 0.50 ng/ml INDETERMINATE > 0.50 ng/ml CONSISTENT WITH AN M.I. Performed By: #### 1 0070, 49395 #### [facility] [address] Troponin I.cardiac [Mass/Vol] 0.06 ng/mL High 0.00-0.04 [facility] Comment on above: Order Comment: No: D o not add to previous draw Result Comment: REFE RENCE RANGES: 0.00 - 0.04 ng/ml NORMAL 0.05 - 0.50 ng/ml INDETERMINATE > 0.50 ng/ml CONSISTENT WITH AN M.I. Performed By: #### 3 5200 #### [facility] [address] Troponin I.cardiac [Mass/Vol] 0.06 ng/mL High 0.00-0.04 [facility] Comment on above: Order Comment: No: D o not add to previous draw Result Comment: REFE RENCE RANGES: 0.00 - 0.04 ng/ml NORMAL 0.05 - 0.50 ng/ml INDETERMINATE > 0.50 ng/ml CONSISTENT WITH AN M.I. Performed By: #### 1 0, 69556 #### [facility] [address] BASIC METABOLIC PANELon 06-2 Calcium [Mass/Vol] 9.1 mg/dL Normal 8.6-10.3 [facility] Comment on above: Order Comment: No: D o not add to previous draw Performed By: #### 8 5499 #### [facility] [address] [place] [address], [facility] Chloride [Moles/Vol] 103 mmol/L Normal 98-107 [facility] Comment on above: Order Comment: No: D o not add to previous draw Performed By: #### 8 5499 #### [facility] [address] [place] [address], [place] CO2 [Moles/Vol] 24 mmol/L Normal 21-31 [facility] Comment on above: Order Comment: No: D o not add to previous draw Performed By: #### 8 5499 #### [facility] [address] [place] [address], [place] Creatinine [Mass/Vol] 0.68 mg/dL Normal 0.60-1.20 [facility] Comment on above: Order Comment: No: D o not add to previous draw Performed By: #### 8 5499 #### [facility] [address] [place] [address], [place] GFR/1.73 sq M.predicted among blacks MDRD (S/P/Bld) [Vol rate/Area] mL/min/{1.73_m2} Normal >60 [facility] Comment on above: Order Comment: No: D o not add to previous draw Performed By: #### 8 5499 #### [facility] [address] [place] [address], [place] GFR/1.73 sq M.predicted among non-blacks MDRD (S/P/Bld) [Vol rate/Area] mL/min/{1.73_m2} Normal >60 [facility] Comment on above: Order Comment: No: D o not add to previous draw Performed By: #### 8 5499 #### [facility] [address] [place] [address], [place] Glucose [Mass/Vol] 196 mg/dL High 70-100 [facility] Comment on above: Order Comment: No: D o not add to previous draw Performed By: #### 8 5499 #### [facility] [address] [place] [address], [place] Potassium [Moles/Vol] 4.1 mmol/L Normal 3.5-5.1 [facility] Comment on above: Order Comment: No: D o not add to previous draw Performed By: #### 8 5499 #### [facility] [address] [facility] [address], [facility] Sodium [Moles/Vol] 137 mmol/L Normal 136-145 [facility] Comment on above: Order Comment: No: D o not add to previous draw Performed By: #### 8 5499 #### [facility] [address] [place] [address], [facility] Urea nitrogen [Mass/Vol] 12 mg/dL Normal 7-25 [facility] Comment on above: Order Comment: No: D o not add to previous draw Performed By: #### 8 5499 #### [facility] [address] [facility]. [address] BNP (B-TYPE NATRIURETIC PEPT RAMAN)on 03-16-2022 Natriuretic peptide B (Bld) [Mass/Vol] 208 pg/mL High 0-100 [facility] Comment on above: Order Comment: No: D o not add to previous draw Result Comment: Give n the appropriate clinical setting a BNP result of >100 pg/mL indicates congestive heart failure. Performed By: #### 1 0070, 64371 #### [facility] [address] [facility] [address], [facility] CARDIAC VICK 3-6on 2 CK [Catalytic activity/Vol] 43 U/L Normal 26-192 [facility] Comment on above: Performed By: #### C MREP ####[facility] [address] [place], [place] [address]Ex. Antonella Medrano CK.MB [Mass/Vol] 1.84 ng/mL Normal <=3.60 [facility] Comment on above: Performed By: #### C MREP ####[facility] [address] [place], [place] [address]Xo. Antonella Medrano HSTROP 111.7 pg/mL Critically high 4.0-51.3 [facility] Comment on above: Result Comment: CUT- OFF POINTS HAVE BEEN ESTABLISHED BASED ON THE FOURTH UNIVERSAL DEFINITIONS OF MYOCARDIALINFARCTION. THE UPPER REFERENCE LIMIT (URL) OF TROPONIN, DEFINED THE 99TH PERCENTILE OFcTnI DISTRIBUTION IN A REFERENCE POPULATION, HAS BEEN CONFIRMED THE DECISION THRESHOLDFOR [place] DIAGNOSIS.repeated Performed By: #### C MREP ####[facility] [address] [place] [id number]. Antonella Medrano CK [Catalytic activity/Vol] 45 U/L Normal 26-192 [facility] Comment on above: Performed By: #### C MREP ####[facility] [address]yksx[address] [place], [place] [address]Jm. Antonella Medrano CK.MB [Mass/Vol] 1.64 ng/mL Normal <=3.60 [facility] Comment on above: Performed By: #### C MREP ####[facility] [address]jem[address] [place] [phone]. Antonella Medrano HSTROP 88.9 pg/mL Critically high 4.0-51.3 [facility] Comment on above: Result Comment: CUT- OFF POINTS HAVE BEEN ESTABLISHED BASED ON THE FOURTH UNIVERSAL DEFINITIONS OF MYOCARDIALINFARCTION. THE UPPER REFERENCE LIMIT (URL) OF TROPONIN, DEFINED THE 99TH PERCENTILE OFcTnI DISTRIBUTION IN A REFERENCE POPULATION, HAS BEEN CONFIRMED THE DECISION THRESHOLDFOR [place] DIAGNOSIS. Performed By: #### C MREP ####[facility] [address] [place] [phone]. Antonella Medrano CARDIAC VICK ADMITon 022 CK [Catalytic activity/Vol] 45 U/L Normal 26-192 [facility] Comment on above: Performed By: #### B MARLEY CMADM ####[facility] [address] [place], [place] [address]Nx. Antonella Medrano CK.MB [Mass/Vol] 1.93 ng/mL Normal <=3.60 [facility] Comment on above: Performed By: #### Anna ROACH CMADM ####[facility] [address] [place], [place] [address]Xy. Antonella Medrano HSTROP 84.6 pg/mL Critically high 4.0-51.3 [facility] Comment on above: Result Comment: CUT- OFF POINTS HAVE BEEN ESTABLISHED BASED ON THE FOURTH UNIVERSAL DEFINITIONS OF MYOCARDIALINFARCTION. THE UPPER REFERENCE LIMIT (URL) OF TROPONIN, DEFINED THE 99TH PERCENTILE OFcTnI DISTRIBUTION IN A REFERENCE POPULATION, HAS BEEN CONFIRMED THE DECISION THRESHOLDFOR [place] DIAGNOSIS. Performed By: #### B MARLEY, CMADM ####[facility] [address] [place] [address]Dr. Antonella Medrano CHRISTOPHER 79 ng/mL Normal 9-82 [facility] Comment on above: Performed By: #### B ALVARO ROACHDM ####[facility] Audzxy[address] [place], [place] [address]Dr. Antonella Medrano CBC AUTO DIFFon 03-16-2022 BASO # 0.0 103/ul Normal 0.0-0.1 [facility] Comment on above: Performed By: #### C BC ####[facility] M[address]cs[address] [place], [place] [address]Dr. Antonella Medrano Basophils/100 WBC (Bld) 0.5 % Normal 0.2-2.0 [facility] Comment on above: Performed By: #### C BC ####[facility] T[address] [place], [place] [address]Dr. Antonella Medrano EO # 0.2 103/ul Normal 0.0-0.7 [facility] Comment on above: Performed By: #### C BC ####[facility] Pgonc[address] [place], [place] [address]Dr. Antonella Medrano Eosinophils/100 WBC (Bld) 2.9 % Normal 0.9-7.0 [facility] Comment on above: Performed By: #### C BC ####[facility] Bwumewsfrw[address] [place], [place] [address]Dr. Antonella Medrano Erythrocyte distribution width (RBC) [Ratio] 13.2 % Normal 11.0-15.0 [facility] Comment on above: Performed By: #### C BC ####[facility] [address] [place], [place] [address]Dr. Antonella Medrano Hematocrit (Bld) [Volume fraction] 44.5 % Normal 36.0-48.0 [facility] Comment on above: Performed By: #### C BC ####[facility] [address] [place] [address]DrGerman Medrano Hemoglobin (Bld) [Mass/Vol] 14.7 g/dL Normal 12.0-16.0 [facility] Comment on above: Performed By: #### C BC ####[facility] Zte[address] [place] [address]DrGerman Medrano IG # 0.10 10e3/ul Critically high 0.00-0.03 [facility] Comment on above: Performed By: #### C BC ####[facility] [address]ek[address]xf[address] [place], [place] [address]DrGerman Medrano IG % 1.3 % Critically high 0.0-0.5 [facility] Comment on above: Performed By: #### C BC ####[facility] Ofgdxxajbe[address] [place], [place] [address]DrGerman Medrano LYMPH # 1.7 103/ul Normal 1.2-3.8 [facility] Comment on above: Performed By: #### C BC ####[facility] Avynf[address]inr[address] [place], [place] [address]DrGerman Medrano Lymphocytes/100 WBC (Bld) 22.0 % Normal 20.5-60.0 [facility] Comment on above: Performed By: #### C BC ####[facility] [address] [place], [place] [address]DrGerman Medrano MANUAL DIFF REQ NO Normal [facility] Comment on above: Performed By: #### C BC ####[facility] [address] [place] [phone] Medrano MCH (RBC) [Entitic mass] 28.7 pg Normal 26.7-34.0 [facility] Comment on above: Performed By: #### C BC ####[facility] [address]tees[address] [place] [address]DrGerman Medrano MCHC (RBC) [Mass/Vol] 33.0 g/dL Normal 29.9-35.2 [facility] Comment on above: Performed By: #### C BC ####[facility] [address]fccwp[address] [place] [address]Dr. Antonella Mitchell MCV (RBC) [Entitic vol] 86.7 fL Normal 81.0-99.0 [facility] Comment on above: Performed By: #### C BC ####[facility] [address] [place] [address]Dr. Antonella Medrano MONO # 0.7 103/ul Normal 0.3-0.8 [facility] Comment on above: Performed By: #### C BC ####[facility] P[address]qfthss[address] [place] [address]Dr. Antonella Medrano Monocytes/100 WBC (Bld) 9.8 % Normal 1.7-12.0 [facility] Comment on above: Performed By: #### C BC ####[facility] [address] [place], [place] [address]Dr. Antonella Medrano NEUT # 4.8 103/ul Normal 1.4-6.5 [facility] Comment on above: Performed By: #### C BC ####[facility] [address] [place], [place] [address]Dr. Antonella Medrano Neutrophils/100 WBC (Bld) 63.5 % Normal 43.0-75.0 [facility] Comment on above: Performed By: #### C BC ####[facility] Gtvq[address]qnt[address] [place], [place] [address]Dr. Antonella Medrano Platelet mean volume (Bld) [Entitic vol] 10.5 fL Normal 9.5-13.5 [facility] Comment on above: Performed By: #### C BC ####[facility] [address] [place], [place] [address]Dr. Antonella Medrano PLT 262 103/ul Normal 150-450 [facility] Comment on above: Performed By: #### C BC ####[facility] [address] [place] [phone]. Antonella Medrano RBC 5.13 106/ul Normal 4.20-5.40 [facility] Comment on above: Performed By: #### C BC ####[facility] [address] [place], [place] [address]Ha. Antonella Medrano WBC 7.5 103/ul Normal 4.0-11.0 [facility] Comment on above: Performed By: #### C BC ####[facility] [address] [place], [place] [address]Fi. Antonella Medrano CBC W/DIFFon 03-16-2022 ABS IMM GRANS 0.1 10*3/uL Normal 0.0-0.2 [facility] Comment on above: Performed By: #### 1 69, 83189 #### [facility] [address] [place] [address], [facility] ABS NEUTROPHILS 4.3 10*3/uL Normal 1.6-7.6 [facility] Comment on above: Performed By: #### 1 69, 05167 #### [facility] [address] [place] [address], [facility] Basophils (Bld) [#/Vol] 0.0 10*3/uL Normal 0.0-0.2 [facility] Comment on above: Performed By: #### 1 69, 26318 #### [facility] [address] [place] [address], [facility] Basophils/100 WBC (Bld) 0.3 % Normal 0.0-1.0 [facility] Comment on above: Performed By: #### 1 69, 93872 #### [facility] [address] [place] [address], [facility] Eosinophils (Bld) [#/Vol] 0.3 10*3/uL Normal 0.0-0.5 [facility] Comment on above: Performed By: #### 1 69, 13652 #### [facility] [address] [facility] [place] [address], [place] Eosinophils/100 WBC (Bld) 3.4 % Normal 0.0-6.0 [facility] Comment on above: Performed By: #### 1 69, 12748 #### [facility] [address] [facility] [address] Erythrocyte distribution width (RBC) [Ratio] 13.5 % Normal 11.5-15.0 [facility] Comment on above: Performed By: #### 1 69, 81836 #### [facility] [address] [facility] [address] Hematocrit (Bld) [Volume fraction] 46.2 % High 36.0-45.0 [facility] Comment on above: Performed By: #### 1 69, 43343 #### [facility] [address] [facility] [address] Hemoglobin (Bld) [Mass/Vol] 15.3 g/dL High 12.0-15.0 [facility] Comment on above: Performed By: #### 1 69, 33972 #### [facility] [address] [facility]. [address] IMMATURE GRANS 0.9 % Normal 0.0-1.0 [facility] Comment on above: Performed By: #### 1 69, 40441 #### [facility] [address] [facility] [address] Lymphocytes (Bld) [#/Vol] 2.2 10*3/uL Normal 1.2-4.0 [facility] Comment on above: Performed By: #### 1 69, 13109 #### [facility] [address] [facility] [address], [facility] Lymphocytes/100 WBC (Bld) 29.1 % Normal 20.0-45.0 [facility] Comment on above: Performed By: #### 1 69, 42262 #### [facility] [address] [facility] [place] [address], [facility] MCH (RBC) [Entitic mass] 28.4 pg Normal 27.0-33.0 [facility] Comment on above: Performed By: #### 1 69, 35147 #### [facility] [address] [facility]. [address] MCHC (RBC) [Mass/Vol] 33.1 g/dL Normal 32.0-35.0 [facility] Comment on above: Performed By: #### 1 69, 26909 #### [facility] [address] MCV (RBC) [Entitic vol] 85.9 fL Normal 82.0-98.0 [facility] Comment on above: Performed By: #### 1 69, 04416 #### [facility] [address] Monocytes (Bld) [#/Vol] 0.7 10*3/uL Normal 0.1-1.0 [facility] Comment on above: Performed By: #### 1 69, 73345 #### [facility] [address] [facility]. [address] MONOS 9.8 % Normal 5.0-12.0 [facility] Comment on above: Performed By: #### 1 69, 15146 #### [facility] [address] [facility]. [address] Neutrophils/100 WBC (Bld) 56.5 % Normal 40.0-72.0 [facility] Comment on above: Performed By: #### 1 69, 52513 #### [facility] [address] [facility]. [address] Nucleated RBC/100 WBC (Bld) [Ratio] 0 % Normal 0-0 [facility] Comment on above: Performed By: #### 1 69, 39280 #### [facility] [address] [facility] [place] [address], [facility] PLAT CNT 245 10*3/uL Normal 150-400 [facility] Comment on above: Performed By: #### 1 0070, 41237 #### [facility] [address] [place] [address], [facility] RBC (Bld) [#/Vol] 5.38 10*6/uL High 3.80-5.00 [facility] Comment on above: Performed By: #### 1 0070, 79898 #### [facility] [address] [place] [address], [facility] WBC (Bld) [#/Vol] 7.56 10*3/uL Normal 4.00-10.60 [facility] Comment on above: Performed By: #### 1 0, 12975 #### [facility] [address] [facility] [address] CULTURE URINEon 03-16-2022 CULTURE URINE Culture Observations : MODERATE GROWTH OF MIXED GENITAL LUCY. NO POTENTIAL PATHOGENS SEEN. Normal [facility] Comment on above: Performed By: #### U RCX ####[facility] [address] [place], [place] [address]Oe. Antonella Mitchell Covid-19 PCR (CVDTBH)on 02-22 SARS-CoV-2 (COVID-19) RNA TAISHA+probe Ql (Unsp spec) Not detected Normal NOT DETECTED [facility] Comment on above: Result Comment: When [...] for this test is supported by the [place] of Health and Human Service's declaration that [...] be used). Performed By: #### C VDTB ####[facility] [address] [place] [address]Dr. Antonella Medrano ER URINE PROFILEon 2 Bilirubin Ql (U) Negative Normal NEGATIVE [facility] Comment on above: Performed By: #### HALEY CLARK ####[facility] [address] [place] [address]Dr. Antonella Medrano Clarity (U) CLEAR Normal CLEAR [facility] Comment on above: Performed By: #### HALEY CLARK ####[facility] [address] [place] [address]Dr. Antonella Medrano Color (U) LT. YELLOW Normal YELLOW [facility] Comment on above: Performed By: #### HALEY CLARK ####[facility] [address] [place], [place] [address]Dr. Antonella Medrano ERUAHD A micrscopic examina tion will be performed if indicated. Normal [facility] Comment on above: Performed By: #### HALEY CLARK ####[facility] [address] [place], [place] [address]Dr. Antonella Medrano Glucose Ql (U) >1000 Abnormal NEGATIVE [facility] Comment on above: Performed By: #### HALEY CLARK ####[facility] [address] [place], [place] [address]Dr. Antonella Medrano Hemoglobin Ql (U) TRACE-INTACT Abnormal NEGATIVE [facility] Comment on above: Performed By: #### HALEY CLARK ####[facility] Afz[address] [place], [place] [address]Dr. Antonella Medrano Ketones Ql (U) Negative Normal NEGATIVE [facility] Comment on above: Performed By: #### HALEY CLARK ####[facility] [address] [place], [place] [address]Dr. Antonella Medrano LEUKOCYTES Negative Normal NEGATIVE [facility] Comment on above: Performed By: #### HEAVENLY CLARKICRO ####[facility] [address] [place] [address]Dr. Mariafilemon Medrano Nitrite Ql (U) Negative Normal NEGATIVE [facility] Comment on above: Performed By: #### Daniela LEE UMICRO ####[facility] [address] [place] [address]Dr. Mariafilemon Medrano pH (U) 6.0 [pH] Normal 5-9 [facility] Comment on above: Performed By: #### LATA CLARKRO ####[facility] [address] [place] [address]Dr. Antonella Medrano SPEC GRAVITY 1.010 Normal 1.005-<=1.0 25 [facility] Comment on above: Performed By: #### LATA CLARKRO ####[facility] Cf[address] [place], [place] [address]Dr. Antonella Medrano UA PROTEIN TRACE Normal NEGATIVE/ TRACE [facility] Comment on above: Performed By: #### HEAVENLY CLARKICRO ####[facility] [address] [place] [address]Dr. Antonella Medrano UR MICRO IND INDICATED Normal [facility] Comment on above: Performed By: #### LATA CLARKRO ####[facility] [address] [place], [place] [address]Dr. Antonella Medrano Urobilinogen Qn (U) 0.2 {Oleg'U}/dL Normal 0.2 - 1. 0 [facility] Comment on above: Performed By: #### Daniela LEE UMICRO ####[facility] [address] [place] [address]Dr. Antonella Medrano POC GLUCOSE LABon 03-16-2022 Glucose [Mass/Vol] 337 mg/dL High 70-100 [facility] Comment on above: Performed By: #### 8 5499 #### [facility] [address] [facility] [address], [facility] Glucose [Mass/Vol] 288 mg/dL High 70-100 [facility] Comment on above: Performed By: #### 1 0070, 87793 #### [facility] [address] [place] [address], [facility] Glucose [Mass/Vol] 197 mg/dL High 70-100 [facility] Comment on above: Performed By: #### 1 0070, 09115 #### [facility] [address] [facility]. [place], [place] [id number] [place] [address] POC SARS COV2 ANTIGEN NEGATI VEon 03-16-2022 POC SARS COV2 ANTIGEN NEG Negative Normal NEGATIVE [facility] Comment on above: Result Comment: Nega tive [...] antigen from SARS-CoV-2 in direct nasopharyngeal swab ([employer]) specimens from individuals who are suspected of [...] Accreditation. Performed By: #### 8 5499 #### [facility] [address] [place] [address], [facility] POINT OF CARE GLUCOSEon 02-22 Glucose [Mass/Vol] 343 mg/dL Critically high 74-106 [facility] Comment on above: Performed By: #### P OCGLUC ####[facility] [address] [place] [address]Dr. Antonella Medrano Glucose [Mass/Vol] 516 mg/dL Critically high 74-106 [facility] Comment on above: Result Comment: Resu lt Not Confirmed Performed By: #### P OCGLUC ####[facility] [address] [place] [address]Dr. Antonella Medrano PROF CHEM 8 (BAS METB)on Anion gap [Moles/Vol] 10.9 mmol/L Normal [facility] Comment on above: Performed By: #### B EMMANUEL ROACH ####[facility] Qhotwpmhgl[address] [place], [place] [address]Dr. Antonella Medrano Calcium [Mass/Vol] 8.9 mg/dL Normal 8.5-10.1 [facility] Comment on above: Performed By: #### B EMMANUEL ROACH ####[facility] Gghecidjto[address] [place], [place] [address]Dr. Antonella Medrano Chloride [Moles/Vol] 99 mmol/L Normal 98-107 [facility] Comment on above: Performed By: #### B EMMANUEL ROACH ####[facility] Vlmbdakfpa[address] [place], [place] [address]Dr. Antonella Medrano CO2 [Moles/Vol] 29.1 mmol/L Normal 21.0-32.0 [facility] Comment on above: Performed By: #### B EMMANUEL ROACH ####[facility] Ikbnxayjdr[address] [place], [place] [address]Dr. Antonella Medrano Creatinine [Mass/Vol] 1.05 mg/dL Critically high 0.55-1.02 [facility] Comment on above: Performed By: #### B EMMANUEL ROACH ####[facility] Izwskjwoyk[address] [place], [place] [address]Dr. Antonella Medrano EGFR-AF MEXICAN >60 Normal >=60 [facility] Comment on above: Performed By: #### B EMMANUEL ROACH ####[facility] Vntoudeubg[address] [place], [place] [address]Dr. Antonlela Medrano EGFR-NON AF MEXICAN 53 mL/min/1.73m2 Critically low >=60 [facility] Comment on above: Performed By: #### B EMMANUEL ROACH ####[facility] [address] [place] [phone]. Antonella Medrano Glucose [Mass/Vol] 466 mg/dL Critically high 74-106 [facility] Comment on above: Performed By: #### EMMANUEL Castillo MP ####[facility] Dcnqtdgity[address] [place] [address]Dr. Antonella Medrano Potassium [Moles/Vol] 4.0 mmol/L Normal 3.5-5.1 [facility] Comment on above: Performed By: #### EMMANUEL Castillo MP ####[facility] Viohfyvsda[address] [place] [address]Dr. Mariafilemon Medrano Sodium [Moles/Vol] 135 mmol/L Critically low 136-145 [facility] Comment on above: Performed By: #### EMMANUEL Castillo MP ####[facility] Vyppfywhum[address] [place], [place] [address]Dr. Antonella Medrano Urea nitrogen [Mass/Vol] 16.0 mg/dL Normal 7.0-18.0 [facility] Comment on above: Performed By: #### EMMANUEL Castillo MP ####[facility] Gcxjmcevyw[address] [place] [address]Dr. Antonella Mitchell Urea nitrogen/Creatinine [Mass ratio] 15.2 mg/mg Normal [facility] Comment on above: Performed By: #### EMMANUEL Castillo MP ####[facility] Ldcobjsbpe23[address] [place], [place] [address]Dr. Antonella Medrano TROPONIN-Ion 03-16-2022 Troponin I.cardiac [Mass/Vol] 0.07 ng/mL High 0.00-0.04 [facility] Comment on above: Order Comment: No: D o not add to previous draw Result Comment: REFE RENCE RANGES: 0.00 - 0.04 ng/ml NORMAL 0.05 - 0.50 ng/ml INDETERMINATE > 0.50 ng/ml CONSISTENT WITH AN M.I. Performed By: #### 3 [id number] #### [facility] [address] [place] [address], [facility] Troponin I.cardiac [Mass/Vol] 0.08 ng/mL High 0.00-0.04 [facility] Comment on above: Order Comment: No: D o not add to previous draw Result Comment: REFE RENCE RANGES: 0.00 - 0.04 ng/ml NORMAL 0.05 - 0.50 ng/ml INDETERMINATE > 0.50 ng/ml CONSISTENT WITH AN M.I. Performed By: #### 8 [id number] #### [facility] [address] [place] [address], [facility] URINE MICROSCOPIC ONLYon BACTERIA TRACE Abnormal NONE SEEN [facility] Comment on above: Performed By: #### Daniela LEE UMICRO ####[facility] A[address]oyfmjlt[address] [place] [address]Dr. Antonella Medrano Bacteria identified Cx Nom (U) INDICATED Normal [facility] Comment on above: Performed By: #### Daniela LEE UMICRO ####[facility] Ffczncodmn[address] [place] [address]Dr. Marialan Mitchell CAST NONE SEEN Normal NONE SEEN [facility] Comment on above: Performed By: #### Daniela LEE UMICRO ####[facility] Hdlbqnjzem[address] [place] [address]Dr. Antonella Medrano Crystals LM Nom (Urine sed) NONE SEEN Normal NONE SEEN [facility] Comment on above: Performed By: #### Daniela LEE UMICRO ####[facility] Doonjddfjw16[address] [place] [address]Dr. Antonella Medrano Epithelial cells LM Ql (Urine sed) FEW Abnormal NONE SEEN /RARE [facility] Comment on above: Performed By: #### Daniela LEE UMICRO ####[facility] Ayadndjrjx[address] [place] [address]Dr. Marialan Medrano MUCOUS NONE SEEN Normal NONE SEEN [facility] Comment on above: Performed By: #### Daniela LEE UMICRO ####[facility] Wxgowolghr050[address] [place] [address]Dr. Antonella Medrano RBC 5-10 Abnormal 0-2 [facility] Comment on above: Performed By: #### HALEY CLARK ####[facility] Xbxvirdvyh[address] [place] [address]Dr. Antonella Medrano WBC 10-20 Abnormal NONE SEEN [facility] Comment on above: Performed By: #### HALEY CLARK ####[facility] Jlwwbdpvrp7[address] [place] [address]Dr. Antonella Medrano XR CHEST 1 Von 03-16-2022 XR CHEST 1 V Normal [facility] CBC AUTO DIFFon 02-17-2022 BASO # 0.0 103/ul Normal 0.0-0.1 [facility] Comment on above: Performed By: #### C BC ####[facility] Hpauvgsvuy[address] [place], [place] [address]Dr. Antonella Medrano Basophils/100 WBC (Bld) 0.4 % Normal 0.2-2.0 [facility] Comment on above: Performed By: #### C BC ####[facility] Gxesarpmzb[address] [place], [place] [address]Dr. Antonella Medrano EO # 0.2 103/ul Normal 0.0-0.7 [facility] Comment on above: Performed By: #### C BC ####[facility] Jzpchzwooz[address] [place], [place] [address]Dr. Antonella Medrano Eosinophils/100 WBC (Bld) 2.8 % Normal 0.9-7.0 [facility] Comment on above: Performed By: #### C BC ####[facility] Lwacqmtkec03[address] [place], [place] [address]Dr. Antonella Medrano Erythrocyte distribution width (RBC) [Ratio] 12.5 % Normal 11.0-15.0 [facility] Comment on above: Performed By: #### C BC ####[facility] Mrdlvjecjg826[address] [place], [place] [address]Dr. Antonella Medrano Hematocrit (Bld) [Volume fraction] 45.7 % Normal 36.0-48.0 [facility] Comment on above: Performed By: #### C BC ####[facility] [address]wjf[address] [place] [phone]. Antonella Medrano Hemoglobin (Bld) [Mass/Vol] 15.1 g/dL Normal 12.0-16.0 [facility] Comment on above: Performed By: #### C BC ####[facility] Adpjshlgfo[address] [place] [phone]. Antonella Medrano IG # 0.04 10e3/ul Critically high 0.00-0.03 [facility] Comment on above: Performed By: #### C BC ####[facility] Hbckhggthg1704 [place] [address]Dr. Antonella Medrano IG % 0.5 % Normal 0.0-0.5 [facility] Comment on above: Performed By: #### C BC ####[facility] Rwieuafpeu[address] [place], [place] [address]Dr. Antonella Medrano LYMPH # 2.3 103/ul Normal 1.2-3.8 [facility] Comment on above: Performed By: #### C BC ####[facility] Dxvbpzzltz34[address] [place] [address]Dr. Antonella Medrano Lymphocytes/100 WBC (Bld) 26.7 % Normal 20.5-60.0 [facility] Comment on above: Performed By: #### C BC ####[facility] Oyzmxvhshj6[address] [place] [address]Dr. Antonella Medrano MANUAL DIFF REQ NO Normal [facility] Comment on above: Performed By: #### C BC ####[facility] Exmoajkgdu20[address] [place] [phone]. Antonella Medrano MCH (RBC) [Entitic mass] 28.4 pg Normal 26.7-34.0 [facility] Comment on above: Performed By: #### C BC ####[facility] Sjddtypcgn01[address] [place] [phone]. Antonella Medrano MCHC (RBC) [Mass/Vol] 33.0 g/dL Normal 29.9-35.2 [facility] Comment on above: Performed By: #### C BC ####[facility] Bmnciglhdg34[address] [place] [phone]. Antonella Medrano MCV (RBC) [Entitic vol] 86.1 fL Normal 81.0-99.0 [facility] Comment on above: Performed By: #### C BC ####[facility] Yhqbzdrqfr30[address] [place] [phone]. Antonella Medrano MONO # 0.7 103/ul Normal 0.3-0.8 [facility] Comment on above: Performed By: #### C BC ####[facility] Pafkfeldcm30[address] [place], [place] [address]Dr. Antonella Medrano Monocytes/100 WBC (Bld) 7.8 % Normal 1.7-12.0 [facility] Comment on above: Performed By: #### C BC ####[facility] Mhapwwazxw[address] [place], [place] [address]Dr. Antonella Medrano NEUT # 5.2 103/ul Normal 1.4-6.5 [facility] Comment on above: Performed By: #### C BC ####[facility] [address] [place], [place] [address]Dr. Antonella Medrano Neutrophils/100 WBC (Bld) 61.8 % Normal 43.0-75.0 [facility] Comment on above: Performed By: #### C BC ####[facility] Qxeqjpaktc400[address] [place], [place] [address]Dr. Antonella Medrano Platelet mean volume (Bld) [Entitic vol] 11.8 fL Normal 9.5-13.5 [facility] Comment on above: Performed By: #### C BC ####[facility] Lsepsocwfj[address] [place], [place] [address]Dr. Antonella Medrano PLT 203 103/ul Normal 150-450 [facility] Comment on above: Performed By: #### C BC ####[facility] Hinrcuxqfq[address] [place], [place] [address]Dr. Antonella Medrano RBC 5.31 106/ul Normal 4.20-5.40 [facility] Comment on above: Performed By: #### C BC ####[facility] Xqybjinbcc35[address] [place] [phone]. Antonella Medrano WBC 8.4 103/ul Normal 4.0-11.0 [facility] Comment on above: Performed By: #### C BC ####[facility] Icapiziwxa68[address] [place] [phone]. Antonella Medrano POINT OF CARE GLUCOSEon 01-22 Glucose [Mass/Vol] 363 mg/dL Critically high 74-106 [facility] Comment on above: Performed By: #### P OCGLUC ####[facility] Krearsdgzq360[address] [place] [address]Dr. Antonella Medrano Glucose [Mass/Vol] 288 mg/dL Critically high -106 [facility] Comment on above: Performed By: #### P OCGLUC ####[facility] Jzxodihzzt8[address] [place] [address]Dr. Antonella Medrano PROF CHEM 8 (BAS METB)on Anion gap [Moles/Vol] 12.1 mmol/L Normal [facility] Comment on above: Performed By: #### B MP ####[facility] Flklyaqfxn68[address] [place] [address]Dr. Antonella Medrano Calcium [Mass/Vol] 8.7 mg/dL Normal 8.5-10.1 [facility] Comment on above: Performed By: #### B MP ####[facility] Wfjkwyvstj27[address] [place] [address]Dr. Antonella Medrano Chloride [Moles/Vol] 104 mmol/L Normal 98-107 [facility] Comment on above: Performed By: #### B MP ####[facility] Qyfyzgqmhn7235 [place] [address]Dr. Antonella Medrano CO2 [Moles/Vol] 23.3 mmol/L Normal 21.0-32.0 [facility] Comment on above: Performed By: #### B MP ####[facility] Xxrlsrmcjc5769 [place] [address]Dr. Antonella Medrano Creatinine [Mass/Vol] 0.79 mg/dL Normal 0.55-1.02 [facility] Comment on above: Performed By: #### B MP ####[facility] Roditpmctr6337 [place] [address]Dr. Antonella Mitchell EGFR-AF MEXICAN >60 Normal >=60 [facility] Comment on above: Performed By: #### B MP ####[facility] Spvjxiqfdg9[address] [place] [address]Dr. Antonella Mitchell EGFR-NON AF MEXICAN >60 Normal >=60 [facility] Comment on above: Performed By: #### B MP ####[facility] Iwqpqooivl4837 [place] [address]Dr. Antonella Medrano Glucose [Mass/Vol] 291 mg/dL Critically high 74-106 [facility] Comment on above: Performed By: #### B MP ####[facility] Wscsrjumbo[address] [place], [place] [address]Dr. Antonella Medrano Potassium [Moles/Vol] 4.4 mmol/L Normal 3.5-5.1 [facility] Comment on above: Performed By: #### B MP ####[facility] Tvtpizsgez[address] [place], [place] [address]Dr. Antonella Medrano Sodium [Moles/Vol] 135 mmol/L Critically low 136-145 [facility] Comment on above: Performed By: #### B MP ####[facility] Ctdhbygcjv[address] [place], [place] [address]Dr. Antonella Medrano Urea nitrogen [Mass/Vol] 20.0 mg/dL Critically high 7.0-18.0 [facility] Comment on above: Performed By: #### B MP ####[facility] Oxhxfxfgof[address] [place], [place] [address]Dr. Antonella Medrano Urea nitrogen/Creatinine [Mass ratio] 25.3 mg/mg Normal [facility] Comment on above: Performed By: #### B MP ####[facility] Jzjoigtfip8[address] [place], [place] [address]Dr. Antonella Medrano CBC AUTO DIFFon 02-16-2022 BASO # 0.0 103/ul Normal 0.0-0.1 [facility] Comment on above: Performed By: #### C BC ####[facility] Rzeykepwle6[address] [place] [phone]. Antonella Medrano Basophils/100 WBC (Bld) 0.3 % Normal 0.2-2.0 [facility] Comment on above: Performed By: #### C BC ####[facility] Vnoacqztcp80[address] [place] [phone]. Antonella Medrano EO # 0.1 103/ul Normal 0.0-0.7 [facility] Comment on above: Performed By: #### C BC ####[facility] Efmvaurbkz6842 [place] [phone]. Antonella Medrano Eosinophils/100 WBC (Bld) 1.2 % Normal 0.9-7.0 [facility] Comment on above: Performed By: #### C BC ####[facility] Jxmkdjhegg[address] [place], [place] [address]Dr. Antonella Medrano Erythrocyte distribution width (RBC) [Ratio] 12.5 % Normal 11.0-15.0 [facility] Comment on above: Performed By: #### C BC ####[facility] Hptjuagpcm[address] [place], [place] [address]Dr. Antonella Medrano Hematocrit (Bld) [Volume fraction] 51.7 % Critically high 36.0-48.0 [facility] Comment on above: Performed By: #### C BC ####[facility] Dlhwcbxsgl[address] [place], [place] [address]Dr. Antonella Medrano Hemoglobin (Bld) [Mass/Vol] 17.2 g/dL Critically high 12.0-16.0 [facility] Comment on above: Performed By: #### C BC ####[facility] Nszzpspwzb3[address] [place], [place] [address]Dr. Antonella Medrano IG # 0.08 10e3/ul Critically high 0.00-0.03 [facility] Comment on above: Performed By: #### C BC ####[facility] Aryjpeqgbs[address] [place], [place] [address]Dr. Antonella Medrano IG % 0.8 % Critically high 0.0-0.5 [facility] Comment on above: Performed By: #### C BC ####[facility] Ycbedhiucz6427 [place] [address]Dr. Antonella Medrano LYMPH # 2.3 103/ul Normal 1.2-3.8 [facility] Comment on above: Performed By: #### C BC ####[facility] Neccmgayod9975 [place] [phone]. Antonella Medrano Lymphocytes/100 WBC (Bld) 22.1 % Normal 20.5-60.0 [facility] Comment on above: Performed By: #### C BC ####[facility] Jcejljktrg224[address] [place] [address]Dr. Antonella Medrano MANUAL DIFF REQ NO Normal [facility] Comment on above: Performed By: #### C BC ####[facility] Lqrswmiksu4582 [place] [address]Dr. Antonella Medrano MCH (RBC) [Entitic mass] 28.5 pg Normal 26.7-34.0 [facility] Comment on above: Performed By: #### C BC ####[facility] Nkkrqvaufn39[address] [place] [address]Dr. Antonella Medrano MCHC (RBC) [Mass/Vol] 33.3 g/dL Normal 29.9-35.2 [facility] Comment on above: Performed By: #### C BC ####[facility] Kqajzxsytp78[address] [place] [address]Dr. Antonella Medrano MCV (RBC) [Entitic vol] 85.7 fL Normal 81.0-99.0 [facility] Comment on above: Performed By: #### C BC ####[facility] Sxnljltnlr5163 [place] [phone] Medrano MONO # 0.9 103/ul Critically high 0.3-0.8 [facility] Comment on above: Performed By: #### C BC ####[facility] Ogonxodbeg5955 [place] [phone]. Antonella Medrano Monocytes/100 WBC (Bld) 8.5 % Normal 1.7-12.0 [facility] Comment on above: Performed By: #### C BC ####[facility] Kcuifwtsqu8[address] [place] [phone]. Antonella Medrano NEUT # 7.0 103/ul Critically high 1.4-6.5 [facility] Comment on above: Performed By: #### C BC ####[facility] Zkeycqtmet1367 [place] [phone]. Antonella Medrano Neutrophils/100 WBC (Bld) 67.1 % Normal 43.0-75.0 [facility] Comment on above: Performed By: #### C BC ####[facility] Dmypepwfme2879 [place] [phone]. Antonella Medrano Platelet mean volume (Bld) [Entitic vol] 11.3 fL Normal 9.5-13.5 [facility] Comment on above: Performed By: #### C BC ####[facility] Usanqembvu5[address] [place] [phone]. Antonella Medrano PLT 279 103/ul Normal 150-450 [facility] Comment on above: Performed By: #### C BC ####[facility] Ospywsctlv37[address] [place] [phone]. Antonella Medrano RBC 6.03 106/ul Critically high 4.20-5.40 [facility] Comment on above: Performed By: #### C BC ####[facility] Gpcfrihwzf8923 [place] [phone]. Antonella Medrano WBC 10.4 103/ul Normal 4.0-11.0 [facility] Comment on above: Performed By: #### C BC ####[facility] Xusrwdswih7[address] [place] [phone]. Antonella Medrano CT HEAD WO CONon 02-16-2022 CT HEAD WO CON Normal [facility] CULTURE URINEon 02-16-2022 CULTURE URINE Culture Observations : LIGHT GROWTH OF MIXED GENITAL LUCY. NO POTENTIAL PATHOGENS SEEN. Normal [facility] Comment on above: Performed By: #### U RCX ####[facility] Kvodfksxyk[address] [place] [address]Dr. Antonella Mitchell Covid-19 PCR (CVDTBH)on 01-22 SARS-CoV-2 (COVID-19) RNA TAISHA+probe Ql (Unsp spec) Not detected Normal NOT DETECTED [facility] Comment on above: Result Comment: When [...] for this test is supported by the [place] [employer] and [employer] Service's declaration that [...] be used). Performed By: #### C VDTBH ####[facility] Typglwcqhb45[address] [place] [address]Dr. Antonella Medrano ER URINE PROFILEon Bilirubin Ql (U) Negative Normal NEGATIVE [facility] Comment on above: Performed By: #### U MICRO, ERUR ####[facility] Umzyykimtn[address] [place], [place] [address]Dr. Antonella Medrano Clarity (U) CLEAR Normal CLEAR [facility] Comment on above: Performed By: #### U MICRO, ERUR ####[facility] Jafzmofoxh09[address] [place] [address]Dr. Antonella Medrano Color (U) YELLOW Normal YELLOW [facility] Comment on above: Performed By: #### U MICRO, ERUR ####[facility] Qypqrakagr[address] [place], [place] [address]Dr. Antonella Medrano ERUAHD A micrscopic examina tion will be performed if indicated. Normal [facility] Comment on above: Performed By: #### U MICRO, ERUR ####[facility] Tqroxzjndo37[address] [place] [address]Dr. Antonella Medrano Glucose Ql (U) >1000 Abnormal NEGATIVE [facility] Comment on above: Performed By: #### U MICRO, ERUR ####[facility] Knvupwfxfy[address] [place], [place] [address]Dr. Antonella Medrano Hemoglobin Ql (U) SMALL Abnormal NEGATIVE [facility] Comment on above: Performed By: #### U MICRO, ERUR ####[facility] Yibloqcrqt[address] [place], [place] [address]Dr. Antonella Medrano Ketones Ql (U) Negative Normal NEGATIVE [facility] Comment on above: Performed By: #### U MICRO, ERUR ####[facility] Inyzwyfroc909[address] [place], [place] [address]Dr. Antonella Medrano LEUKOCYTES SMALL Abnormal NEGATIVE [facility] Comment on above: Performed By: #### U MICRO, ERUR ####[facility] Yfmuautmsv094[address] [place], [place] [address]Dr. Antonella Medrano Nitrite Ql (U) Negative Normal NEGATIVE [facility] Comment on above: Performed By: #### U MICRO, ERUR ####[facility] Dmrheecqls[address] [place], [place] [address]Dr. Antonella Medrano pH (U) 5.5 [pH] Normal 5-9 [facility] Comment on above: Performed By: #### U MICRO, ERUR ####[facility] Yfuhvqjaqj[address] [place], [place] [address]Dr. Antonella Medrano Protein (U) [Mass/Vol] 100 mg/dL Abnormal NEGAT LAZ/ TRACE [facility] Comment on above: Performed By: #### U MICRO, ERUR ####[facility] Msivucixgs[address] [place], [place] [address]Dr. Antonella Medrano SPEC GRAVITY 1.025 Normal 1.005-<=1.0 25 [facility] Comment on above: Performed By: #### U MICRO, ERUR ####[facility] Kefxbfrkav[address] [place], [place] [address]Dr. Antonella Medrano UR MICRO IND INDICATED Normal [facility] Comment on above: Performed By: #### U MICRO, ERUR ####[facility] Ndgjswxvbh8313 [place] [address]Dr. Antonella Medrano Urobilinogen Qn (U) 0.2 {Oleg'U}/dL Normal 0.2 - 1. 0 [facility] Comment on above: Performed By: #### U MICRO, ERUR ####[facility] Abhzyzrtfm0764 [place] [address]Dr. Antonella Medrano LACTATE/LACTIC ACIDon 2021 Lactate [Moles/Vol] 1.2 mmol/L Normal 0.4-1.9 [facility] Comment on above: Performed By: #### L ACT ####[facility] Zivkpociuj032[address] [place], [place] [address]Dr. Antonella Medrano Lactate [Moles/Vol] 2.5 mmol/L Critically high 0.4-1.9 [facility] Comment on above: Performed By: #### L ACT ####[facility] Dvirxkxwgv14[address] [place], [place] [address]Dr. Antonella Medrano POINT OF CARE GLUCOSEon 01-22 Glucose [Mass/Vol] 308 mg/dL Critically high 74-106 [facility] Comment on above: Performed By: #### P OCGLUC ####[facility] Qpwcldosgc[address] [place], [place] [address]Dr. Antonella Medrano Glucose [Mass/Vol] 356 mg/dL Critically high 74-106 [facility] Comment on above: Performed By: #### P OCGLUC ####[facility] Wcsrsaajwu[address] [place], [place] [address]Dr. Antonella Medrano Glucose [Mass/Vol] 254 mg/dL Critically high 74-106 [facility] Comment on above: Performed By: #### P OCGLUC ####[facility] Yjyryavaig[address] [place], [place] [address]Dr. Antonella Medrano Glucose [Mass/Vol] 103 mg/dL Normal 74-106 [facility] Comment on above: Performed By: #### P OCGLUC ####[facility] [address]jpd[address]lbvk[address] [place], [place] [address]Dr. Antonella Medrano PROF 14(COMP METB)on 022 Albumin [Mass/Vol] 3.0 g/dL Critically low 3.4-5.0 [facility] Comment on above: Performed By: #### C MP ####[facility] Qrgcbpcxlr[address] [place] [address]Dr. Antonella Medrano Albumin/Globulin [Mass ratio] 0.8 {ratio} Normal [facility] Comment on above: Performed By: #### C MP ####[facility] Vzjswucztk[address] [place], [place] [address]Dr. Antonella Medrano ALP [Catalytic activity/Vol] 109 U/L Normal 46-116 [facility] Comment on above: Performed By: #### C MP ####[facility] Dedyofdhna[address] [place], [place] [address]Dr. Antonella Medrano ALT [Catalytic activity/Vol] 18 U/L Normal 14-59 [facility] Comment on above: Performed By: #### C MP ####[facility] Lfzwnhbkqw[address] [place], [place] [address]Dr. Antonella Medrano Anion gap [Moles/Vol] 14.5 mmol/L Normal [facility] Comment on above: Performed By: #### C MP ####[facility] Wplrbrqwpc647[address] [place], [place] [address]Dr. Antonella Medrano AST [Catalytic activity/Vol] 11 U/L Critically low 15-37 [facility] Comment on above: Performed By: #### C MP ####[facility] Qgloydictu96[address] [place], [place] [address]Dr. Antonella Medrano Bilirubin [Mass/Vol] 0.3 mg/dL Normal 0.2-1.0 [facility] Comment on above: Performed By: #### C MP ####[facility] Fyxykkboim[address] [place], [place] [address]Dr. Antonella Medrano Calcium [Mass/Vol] 9.2 mg/dL Normal 8.5-10.1 [facility] Comment on above: Performed By: #### C MP ####[facility] Phdoxnkkst[address] [place] [id number]. Antonella Medrano Chloride [Moles/Vol] 99 mmol/L Normal 98-107 [facility] Comment on above: Performed By: #### C MP ####[facility] Qmwvdvqfub2481 [place] [address]Dr. Antonella Medrano CO2 [Moles/Vol] 25.5 mmol/L Normal 21.0-32.0 [facility] Comment on above: Performed By: #### C MP ####[facility] Fnpmylnbim5742 [place] [address]Dr. Antonella Medrano Creatinine [Mass/Vol] 1.57 mg/dL Critically high 0.55-1.02 [facility] Comment on above: Performed By: #### C MP ####[facility] Lsdkuakhlp4[address] [place], [place] [address]Dr. Antonella Medrano EGFR-AF MEXICAN 40 mL/min/1.73m2 Critically low >=60 [facility] Comment on above: Performed By: #### C MP ####[facility] Ljrhgxtgli[address] [place], [place] [address]Dr. Antonella Medrano EGFR-NON AF MEXICAN 33 mL/min/1.73m2 Critically low >=60 [facility] Comment on above: Performed By: #### C MP ####[facility] Dvejxrtqhy[address] [place] [address]Dr. Antonella Medrano Globulin (S) [Mass/Vol] 3.9 g/dL Normal [facility] Comment on above: Performed By: #### C MP ####[facility] Txrhjfebcq3878 [place] [address]Dr. Antonella Medrano Glucose [Mass/Vol] 99 mg/dL Normal 74-106 [facility] Comment on above: Performed By: #### C MP ####[facility] Hmhuhzlvvd032[address] [place], [place] [address]Dr. Antonella Medrano Potassium [Moles/Vol] 4.0 mmol/L Normal 3.5-5.1 [facility] Comment on above: Performed By: #### C MP ####[facility] Nlssecgkcq1402 [place] [address]Dr. Antonella Medrano Protein [Mass/Vol] 6.9 g/dL Normal 6.4-8.2 [facility] Comment on above: Performed By: #### C MP ####[facility] Kfhslkfvln107[address] [place], [place] [address]Dr. Antonella Medrano Sodium [Moles/Vol] 135 mmol/L Critically low 136-145 [facility] Comment on above: Performed By: #### C MP ####[facility] Bamuvgykxy27[address] [place], [place] [address]Dr. Antonella Medrano Urea nitrogen [Mass/Vol] 35.0 mg/dL Critically high 7.0-18.0 [facility] Comment on above: Performed By: #### C MP ####[facility] Qdmktgwunc523[address] [place], [place] [address]Dr. Antonella Medrano Urea nitrogen/Creatinine [Mass ratio] 22.3 mg/mg Normal [facility] Comment on above: Performed By: #### C MP ####[facility] Gootngdaza[address] [place], [place] [address]Dr. Mariafilemon Mitchell URINE MICROSCOPIC ONLYon BACTERIA TRACE Abnormal NONE SEEN [facility] Comment on above: Performed By: #### U MICRO, ERUR ####[facility] Cmbijizxpu[address] [place], [place] [address]Dr. Mariafilemon Mitchell Bacteria identified Cx Nom (U) INDICATED Normal [facility] Comment on above: Performed By: #### U MICRO, ERUR ####[facility] Yhrxkyimuh[address] [place], [place] [address]Dr. Antonella Medrano CAST SEEN Abnormal NONE SEEN [facility] Comment on above: Performed By: #### U MICRO, ERUR ####[facility] Wjpwwcozxs[address] [place], [place] [address]Dr. Antonella Medrano Crystals LM Nom (Urine sed) NONE SEEN Normal NONE SEEN [facility] Comment on above: Performed By: #### U MICRO, ERUR ####[facility] Ktgxblafps[address] [place], [place] [address]Dr. Antonella Medrano Epithelial cells LM Ql (Urine sed) RARE Normal NONE SEEN /RARE [facility] Comment on above: Performed By: #### U MICRO, ERUR ####[facility] Tbzcjm[address] [place], [place] [address]Xe. Antonella Medrano MUCOUS NONE SEEN Normal NONE SEEN [facility] Comment on above: Performed By: #### U MICRO, ERUR ####[facility] Ateg[address]verd[address] [place], [place] [address]Th. Antonella Medrano RBC 0-2 Normal 0-2 [facility] Comment on above: Performed By: #### U MICRO, ERUR ####[facility] Szeb[address] [place], [place] [address]Ay. Antonella Medrano WBC 20-50 Abnormal NONE SEEN [facility] Comment on above: Performed By: #### U MICRO, ERUR ####[facility] Jidrvblmsm[address] [place] [id number]. Antonella Medrano XR CHEST 1 Von 02-16-2022 XR CHEST 1 V Normal [facility] Complete Blood Counton 02-15 Erythrocyte distribution width (RBC) [Ratio] 12.4 % Normal 11.0-15.0 [facility] [employer] Comment on above: Performed By: #### C BC, CMP #### [facility] [address] [place], [place] [id number] Hematocrit (Bld) [Volume fraction] 50.9 % High 35.0-47.0 [facility] Foreign [employer] Comment on above: Performed By: #### C BC, CMP #### [facility] [address] [place], [place] [id number] Hemoglobin (Bld) [Mass/Vol] 17.2 g/dL High 11.6-15.5 [facility] Foreign Exchange Clerk Comment on above: Performed By: #### C BC, CMP #### [facility] [address], [place] [id number] MCH (RBC) [Entitic mass] 28.6 pg Normal 27.0-33.0 [facility] Foreign Exchange Clerk Comment on above: Performed By: #### C BC, CMP #### [facility] [address] [place], [place] [id number] MCHC (RBC) [Mass/Vol] 33.8 g/dL Normal 32.0-36.[address] [facility] Comment on above: Performed By: #### C BC, CMP #### [facility] [address] [place], [place] [id number] MCV (RBC) [Entitic vol] 85 fL Normal 80-100 [facility] Foreign Exchange Clerk Comment on above: Performed By: #### C BC, CMP #### [facility] [address] [place], [place] [id number] Platelet mean volume (Bld) [Entitic vol] 11.60 fL Normal 7.50-12.50 [facility] Foreign Exchange Clerk Comment on above: Performed By: #### C BC, CMP #### [facility] [address] [place], [place] [id number] Platelets (Bld) [#/Vol] 273 10*3/uL Normal 140-400 [facility] Foreign Exchange Clerk Comment on above: Performed By: #### C BC, CMP #### [facility] [address] [place], [place] [id number] RBC (Bld) [#/Vol] 6.01 10*6/uL High 3.90-5.20 [facility] Foreign Exchange Clerk Comment on above: Performed By: #### C BC, CMP #### [facility] [address] [place], [place] [id number] RDW-SD 37.6 fL Normal 37.0-50.0 [facility] Foreign Exchange Clerk Comment on above: Performed By: #### C BC, CMP #### [facility] [address] [place], [place] [id number] WBC (Bld) [#/Vol] 9.0 10*3/uL Normal 3.8-11.0 [facility] Foreign Exchange Clerk Comment on above: Performed By: #### C BC, CMP #### [facility] [address] [place], [place] [id number] Comprehensive Metabolic Pane cedric 02-15-2022 Albumin [Mass/Vol] 3.9 g/dL Normal 3.6-5.[address] Foreign Exchange Clerk Comment on above: Performed By: #### C BC, CMP #### [facility] [address] [place], [place] [id number] Albumin/Globulin [Mass ratio] 1.3 {ratio} Normal 1.0-2.5 [facility] Comment on above: Performed By: #### C BC, CMP #### [facility] [address] [place], [place] [id number] ALP [Catalytic activity/Vol] 141 U/L High 35-119 [facility] Comment on above: Performed By: #### C BC, CMP #### [facility] [address] [place], [place] [id number] ALT [Catalytic activity/Vol] 11 U/L Normal 6-33 [facility] Comment on above: Result Comment: 08/23 Female reference range changed. Performed By: #### C BC, CMP #### [facility] [address] [place], [place] [id number] Anion gap [Moles/Vol] 19 mmol/L Normal 12-[address] [facility] Comment on above: Result Comment: Effe ctive 09/28/2019 reference range changed. Performed By: #### C BC, CMP #### [facility] [address] [place], [place] [id number] AST [Catalytic activity/Vol] 12 U/L Normal 9-34 [facility] Comment on above: Performed By: #### C BC, CMP #### [facility] [address] [place], [place] [id number] Bilirubin [Mass/Vol] 0.32 mg/dL Normal 0.30-1.20 [facility] [place] Comment on above: Performed By: #### C BC, CMP #### [facility] [address] [place], [place] [id number] BUN/CREA 23 Ratio High 6-22 [facility] Comment on above: Performed By: #### C BC, CMP #### [facility] [address] [place], [place] [id number] Calcium [Mass/Vol] 9.9 mg/dL Normal 8.6-10.2 [facility] Comment on above: Performed By: #### C BC, CMP #### [facility] [address] [place], [place] [id number] Chloride [Moles/Vol] 95 mmol/L Low 98-107 [facility] [place] Comment on above: Performed By: #### C BC, CMP #### [facility] [address] [place] [id number] CO2 [Moles/Vol] 21 mmol/L Normal 20-31 [facility] Comment on above: Performed By: #### C BC, CMP #### [facility] [address] [place] [id number] Creatinine [Mass/Vol] 1.3 mg/dL Normal 0.6-1.[address] [facility] Comment on above: Performed By: #### C BC, CMP #### [facility] [address] [place] [id number] eGFRAA 51 mL/min/1.73m2 Low >60 [facility] Comment on above: Performed By: #### C BC, CMP #### [facility] [address] [facility] [place] [id number] eGFRNAA 42 mL/min/1.73m2 Low >60 [facility] Comment on above: Performed By: #### C BC, CMP #### [facility] [address] [place] [id number] Globulin (S) [Mass/Vol] 3.0 g/dL Normal 1.9-3.7 [facility] Comment on above: Performed By: #### C BC, CMP #### [facility] [address] [facility] [place] [id number] Glucose [Mass/Vol] 366 mg/dL High 65-99 [facility] Comment on above: Result Comment: For FASTING Glucose --- ADA reference ranges: Normal 65-99 mg/dl Prediabetes 100-125 Diabetes >/= 126 Performed By: #### C BC, CMP #### [facility] [address] [place] [id number] Potassium [Moles/Vol] 4.7 mmol/L Normal 3.5-5.[address] [facility] Comment on above: Performed By: #### C BC, CMP #### [facility] [address] [facility] [place] [id number] Protein [Mass/Vol] 6.9 g/dL Normal 6.1-8.1 [facility] [place] [employer] Comment on above: Performed By: #### C BC, CMP #### [facility] [address] [place], [place] [id number] Sodium [Moles/Vol] 131 mmol/L Low 135-[address] [facility] Foreign Exchange Clerk Comment on above: Performed By: #### C BC, CMP #### [facility] [address] [place], [place] [id number] Urea nitrogen [Mass/Vol] 30 mg/dL High 7-25 [facility] Foreign Exchange Clerk Comment on above: Performed By: #### C BC, CMP #### [facility] [address] [place], [place] [id number] CBC AUTO DIFFon 02-01-2022 BASO # 0.0 103/ul Normal 0.0-0.1 [facility] Comment on above: Performed By: #### C BC ####[facility] Sp[address]zt[address] [place] [id number]. Antonella Merdano Basophils/100 WBC (Bld) 0.3 % Normal 0.2-2.0 [facility] Comment on above: Performed By: #### C BC ####[facility] Smvxwogepr0296 [place] [id number]. Antonella Medrano EO # 0.2 103/ul Normal 0.0-0.7 [facility] Comment on above: Performed By: #### C BC ####[facility] Bvyqtashmr4839 [place] [id number]. Antonella Medrano Eosinophils/100 WBC (Bld) 1.9 % Normal 0.9-7.0 [facility] Comment on above: Performed By: #### C BC ####[facility] Lgzmikoxzv8217 [place], [place] [address]Lm. Antonella Medrano Erythrocyte distribution width (RBC) [Ratio] 12.6 % Normal 11.0-15.0 [facility] Comment on above: Performed By: #### C BC ####[facility] Krhkxievlg3584 [place] [id number]. Antonella Medrano Hematocrit (Bld) [Volume fraction] 49.6 % Critically high 36.0-48.0 [facility] Comment on above: Performed By: #### C BC ####[facility] Msqontagjq20[address] [place] [address]Dr. Antonella Mitchell Hemoglobin (Bld) [Mass/Vol] 16.6 g/dL Critically high 12.0-16.0 [facility] Comment on above: Performed By: #### C BC ####[facility] Dtfcrbxzzm1209 [place] [address]Dr. Antonella Medrano IG # 0.04 10e3/ul Critically high 0.00-0.03 [facility] Comment on above: Performed By: #### C BC ####[facility] Eivvxonbtk8[address] [place], [place] [address]Dr. Antonella Medrano IG % 0.4 % Normal 0.0-0.5 [facility] Comment on above: Performed By: #### C BC ####[facility] Tbiqizyich[address] [place], [place] [address]Dr. Antonella Medrano LYMPH # 2.4 103/ul Normal 1.2-3.8 [facility] Comment on above: Performed By: #### C BC ####[facility] Wuyfghcsuk[address] [place], [place] [address]Dr. Antonella Medrano Lymphocytes/100 WBC (Bld) 25.9 % Normal 20.5-60.0 [facility] Comment on above: Performed By: #### C BC ####[facility] Pbrgehvtdr[address] [place], [place] [address]Dr. Antonella Medrano MANUAL DIFF REQ NO Normal [facility] Comment on above: Performed By: #### C BC ####[facility] Hkrweizptp[address] [place], [place] [address]Dr. Antonella Medrano MCH (RBC) [Entitic mass] 28.7 pg Normal 26.7-34.0 [facility] Comment on above: Performed By: #### C BC ####[facility] Vxegphgmjl495[address] [place], [place] [address]Dr. Antonella Medrano MCHC (RBC) [Mass/Vol] 33.5 g/dL Normal 29.9-35.2 [facility] Comment on above: Performed By: #### C BC ####[facility] Ynmekeskbv8073 [place] [address]Dr. Antonella Medrano MCV (RBC) [Entitic vol] 85.8 fL Normal 81.0-99.0 [facility] Comment on above: Performed By: #### C BC ####[facility] Yvqsvdejup0058 [place] [address]Dr. Antonella Medrano MONO # 0.7 103/ul Normal 0.3-0.8 [facility] Comment on above: Performed By: #### C BC ####[facility] Jgsqksajjb1892 [place] [address]Dr. Antonella Medrano Monocytes/100 WBC (Bld) 7.9 % Normal 1.7-12.0 [facility] Comment on above: Performed By: #### C BC ####[facility] Tqegqxyvye[address] [place], [place] [address]Dr. Antonella Medrano NEUT # 5.8 103/ul Normal 1.4-6.5 [facility] Comment on above: Performed By: #### C BC ####[facility] Qpkzrznnhc548[address] [place], [place] [address]Dr. Antonella Mitchell Neutrophils/100 WBC (Bld) 63.6 % Normal 43.0-75.0 [facility] Comment on above: Performed By: #### C BC ####[facility] Jvukhfpiyr7[address] [place], [place] [address]Dr. Antonella Mitchell Platelet mean volume (Bld) [Entitic vol] 12.3 fL Normal 9.5-13.5 [facility] Comment on above: Performed By: #### C BC ####[facility] Zsfiofcgbm[address] [place], [place] [address]Dr. Antonella Mitchell PLT 212 103/ul Normal 150-450 [facility] Comment on above: Performed By: #### C BC ####[facility] Pbwgdmxlpc8462 [place] [phone]. Antonella Medrano RBC 5.78 106/ul Critically high 4.20-5.40 [facility] Comment on above: Performed By: #### C BC ####[facility] Lniljktvik9884 [place] [address]Dr. Antonella Medrano WBC 9.1 103/ul Normal 4.0-11.0 [facility] Comment on above: Performed By: #### C BC ####[facility] Xtflkpiylo7118 [place] [address]Dr. Antonella Medrano CULTURE URINEon 02-01-2022 CULTURE URINE Culture Observations : LIGHT GROWTH OF MIXED SKIN LUCY. NO POTENTIAL PATHOGENS SEEN. Normal [facility] Comment on above: Performed By: #### U RCX ####[facility] Yajiyxyumv8[address] [place], [place] [address]Dr. Antonella Medrano ER URINE PROFILEon Bilirubin Ql (U) Negative Normal NEGATIVE [facility] Comment on above: Performed By: #### LATA CLARKRO ####[facility] Uzszlhduvi[address] [place], [place] [address]Dr. Antonella Medrano Clarity (U) CLEAR Normal CLEAR [facility] Comment on above: Performed By: #### LATA CLARKRO ####[facility] Llqckeaijj304[address] [place], [place] [address]Dr. Antonella Medrano Color (U) LT. YELLOW Normal YELLOW [facility] Comment on above: Performed By: #### LATA CLARKRO ####[facility] Mkjjpvzdlz07[address] [place], [place] [address]Dr. Antonella Medrano ERUAHD A micrscopic examina tion will be performed if indicated. Normal [facility] Comment on above: Performed By: #### LATA CLARKRO ####[facility] Sdqndbcdou[address] [place], [place] [address]Dr. Antonella Medrano Glucose Ql (U) 1000 mg/dl Abnormal NEGATIVE [facility] Comment on above: Performed By: #### LATA CLARKRO ####[facility] Iiwlhxxann134[address] [place], [place] [address]Dr. Antonella Medrano Hemoglobin Ql (U) SMALL Abnormal NEGATIVE [facility] Comment on above: Performed By: #### HALEY CLARK ####[facility] Imvynypygp4588 [place] [address]Dr. Antonella Medrano Ketones Ql (U) Negative Normal NEGATIVE [facility] Comment on above: Performed By: #### HALEY CLARK ####[facility] Xtczqhtkpn8145 [place] [address]Dr. Antonella Medrano LEUKOCYTES TRACE Abnormal NEGATIVE [facility] Comment on above: Performed By: #### HALEY CLARK ####[facility] Npukkyzgxl40[address] [place], [place] [address]Dr. Antonella Medrano Nitrite Ql (U) Negative Normal NEGATIVE [facility] Comment on above: Performed By: #### HALEY CLARK ####[facility] Ywvyfidfyh[address] [place], [place] [address]Dr. Antonella Medrano pH (U) 5.5 [pH] Normal 5-9 [facility] Comment on above: Performed By: #### HALEY CLARK ####[facility] Xzmcnzfcmg[address] [place], [place] [address]Dr. Antonella Medrano Protein (U) [Mass/Vol] 30 mg/dL Abnormal NEGAT LAZ/ TRACE [facility] Comment on above: Performed By: #### HALEY CLARK ####[facility] Ucuzqlyijf[address] [place], [place] [address]Dr. Antonella Medrano SPEC GRAVITY 1.015 Normal 1.005-<=1.0 [facility] Comment on above: Performed By: #### HALEY CLARK ####[facility] Yglpjoiexm[address] [place], [place] [address]Dr. Antonella Medrano UR MICRO IND INDICATED Normal [facility] Comment on above: Performed By: #### HALEY CLARK ####[facility] Spmszwpsrn8[address] [place], [place] [address]Dr. Antonella Medrano Urobilinogen Qn (U) 0.2 {Oleg'U}/dL Normal 0.2 - 1. 0 [facility] Comment on above: Performed By: #### LATA CLARKRO ####[facility] K[address]uljcuzj[address] [place] [phone]. Antonella Medrano POINT OF CARE GLUCOSEon 01-21 Glucose [Mass/Vol] 285 mg/dL Critically high 74-106 [facility] Comment on above: Performed By: #### P OCGLUC ####[facility] Nwcxfgehrz6493 [place] [phone]. Mariafilemon Mitchell Glucose [Mass/Vol] 352 mg/dL Critically high 74-106 [facility] Comment on above: Performed By: #### P OCGLUC ####[facility] Wxitzsafhe8608 [place] [address]Dr. Antonella Medrano Glucose [Mass/Vol] 503 mg/dL Critically high 74-106 [facility] Comment on above: Result Comment: Resu lt Not Confirmed Performed By: #### P OCGLUC ####[facility] Fucyhzyymz5790 [place] [address]Dr. Antonella Medrano PROF 14(COMP METB)on 022 Albumin [Mass/Vol] 3.2 g/dL Critically low 3.4-5.0 [facility] Comment on above: Performed By: #### C MP ####[facility] Kotphawtlu6872 [place] [address]Dr. Antonella Medrano Albumin/Globulin [Mass ratio] 0.7 {ratio} Normal [facility] Comment on above: Performed By: #### C MP ####[facility] Hapsbrmaqb0395 [place] [address]Dr. Antonella Medrano ALP [Catalytic activity/Vol] 128 U/L Critically high 46-116 [facility] Comment on above: Performed By: #### C MP ####[facility] Fmcsuofvbs9244 [place] [address]Dr. Antonella Medrano ALT [Catalytic activity/Vol] 16 U/L Normal 14-59 [facility] Comment on above: Performed By: #### C MP ####[facility] Divpflouti0772 [place] [address]Dr. Antonella Medrano Anion gap [Moles/Vol] 14.3 mmol/L Normal Th [facility] Comment on above: Performed By: #### C MP ####[facility] Kttmmttoxh6175 [place] [address]Dr. Antonella Medrano AST [Catalytic activity/Vol] 20 U/L Normal 15-37 [facility] Comment on above: Performed By: #### C MP ####[facility] Oxsixvjmzx88[address] [place], [place] [address]Dr. Antonella Medrano Bilirubin [Mass/Vol] 0.6 mg/dL Normal 0.2-1.0 [facility] Comment on above: Performed By: #### C MP ####[facility] Nujzjgtarh04[address] [place], [place] [address]Dr. Mariafilemon Medrano Calcium [Mass/Vol] 9.9 mg/dL Normal 8.5-10.1 [facility] Comment on above: Performed By: #### C MP ####[facility] Jsktkxcnil[address] [place], [place] [address]Dr. Mariafilemon Medrano Chloride [Moles/Vol] 94 mmol/L Critically low 98-107 [facility] Comment on above: Performed By: #### C MP ####[facility] Vjtxankhcm[address] [place], [place] [address]Dr. Antonella Medrano CO2 [Moles/Vol] 25.7 mmol/L Normal 21.0-32.0 [facility] Comment on above: Performed By: #### C MP ####[facility] Yrftnbbszq[address] [place], [place] [address]Dr. Mariafilemon Mitchell Creatinine [Mass/Vol] 1.00 mg/dL Normal 0.55-1.02 [facility] Comment on above: Performed By: #### C MP ####[facility] Lamdwkugot8[address] [place], [place] [address]Dr. Antonella Medrano EGFR-AF MEXICAN >60 Normal >=60 [facility] Comment on above: Performed By: #### C MP ####[facility] [address] [place], [place] [address]Dr. Antonella Medrano EGFR-NON AF MEXICAN 56 mL/min/1.73m2 Critically low >=60 [facility] Comment on above: Performed By: #### C MP ####[facility] [address] [place] [address]Dr. Antonella Medrano Globulin (S) [Mass/Vol] 4.4 g/dL Normal [facility] Comment on above: Performed By: #### C MP ####[facility] [address] [place] [id number]. Antonella Medrano Glucose [Mass/Vol] 452 mg/dL Critically high 74-106 [facility] Comment on above: Performed By: #### C MP ####[facility] [address] [place] [address]Dr. Antonella Mitchell Potassium [Moles/Vol] 5.0 mmol/L Normal 3.5-5.1 [facility] Comment on above: Performed By: #### C MP ####[facility] [address] [place] [address]Dr. Mariafilemon Mitchell Protein [Mass/Vol] 7.6 g/dL Normal 6.4-8.2 [facility] Comment on above: Performed By: #### C MP ####[facility] [address] [place] [address]Dr. Antonella Mitchell Sodium [Moles/Vol] 129 mmol/L Critically low 136-145 [facility] Comment on above: Performed By: #### C MP ####[facility] [address] [place] [address]Dr. Antonella Mitchell Urea nitrogen [Mass/Vol] 45.0 mg/dL Critically high 7.0-18.0 [facility] Comment on above: Performed By: #### C MP ####[facility] [address] [place] [address]Dr. Antonella Mitchell Urea nitrogen/Creatinine [Mass ratio] 45.0 mg/mg Normal [facility] Comment on above: Performed By: #### C MP ####[facility] [address] [place] [address]Dr. Mariafilemon Mitchell URINE MICROSCOPIC ONLYon BACTERIA SMALL Abnormal NONE SEEN [facility] Comment on above: Performed By: #### Daniela LEE UMICRO ####[facility] [address] [place] [address]Dr. Antonella Medrano Bacteria identified Cx Nom (U) INDICATED Normal [facility] Comment on above: Performed By: #### Daniela LEE UMICRO ####[facility] [address] [place] [address]Dr. Antonella Medrano CAST NONE SEEN Normal NONE SEEN [facility] Comment on above: Performed By: #### Daniela LEE UMICRO ####[facility] [address] [place] [address]Dr. Antonella Medrano Crystals LM Nom (Urine sed) NONE SEEN Normal NONE SEEN [facility] Comment on above: Performed By: #### Daniela LEE UMICRO ####[facility] [address] [place] [address]Dr. Antonella Medrano Epithelial cells LM Ql (Urine sed) FEW Abnormal NONE SEEN /RARE [facility] Comment on above: Performed By: #### Daniela LEE UMICRO ####[facility] [address] [place] [address]Dr. Antonella Medrano MUCOUS NONE SEEN Normal NONE SEEN [facility] Comment on above: Performed By: #### Daniela LEE UMICRO ####[facility] [address] [place] [address]Dr. Antonella Medrano RBC 2-5 Abnormal 0-2 [facility] Comment on above: Performed By: #### HEAVENLY CLARKICRO ####[facility] [address] [place] [address]Dr. Antonella Medrano WBC 10-20 Abnormal NONE SEEN [facility] Comment on above: Performed By: #### Daniela LEE UMICRO ####[facility] [address] [place] [address]Dr. Antonella Medrano Amylaseon 01-30-2022 ANGY 62 U/L Normal 28-100 [facility] Comment on above: Performed By: #### A MY, LIP #### [facility] [address] [place], [place] [id number] Complete Blood Counton 01-30 Erythrocyte distribution width (RBC) [Ratio] 12.5 % Normal 11.0-15.0 [facility] Specialist Comment on above: Performed By: #### C BC, CMP #### [facility] [address] [place], [place] [id number] Hematocrit (Bld) [Volume fraction] 51.5 % High 35.0-47.0 [facility] Specialist Comment on above: Performed By: #### C BC, CMP #### [facility] [address] [place], [place] [id number] Hemoglobin (Bld) [Mass/Vol] 17.4 g/dL High 11.6-15.5 [facility] Specialist Comment on above: Performed By: #### C GEORGINA, CMP #### [facility] [address] [place], [place] [id number] MCH (RBC) [Entitic mass] 29.0 pg Normal 27.0-33.0 [facility] Specialist Comment on above: Performed By: #### C BC, CMP #### [facility] [address] [place], [place] [id number] MCHC (RBC) [Mass/Vol] 33.8 g/dL Normal 32.0-36.[address] [facility] Comment on above: Performed By: #### C BC, CMP #### [facility] [address] [place], [place] [id number] MCV (RBC) [Entitic vol] 86 fL Normal 80-100 [facility] Specialist Comment on above: Performed By: #### C BC, CMP #### [facility] [address] [place], [place] [id number] Platelet mean volume (Bld) [Entitic vol] 12.50 fL Normal 7.50-12.50 [facility] Specialist Comment on above: Performed By: #### C BC, CMP #### [facility] [address] [place], [place] [id number] Platelets (Bld) [#/Vol] 227 10*3/uL Normal 140-400 [facility] Specialist Comment on above: Performed By: #### C BC, CMP #### [facility] [address] [place], [place] [id number] RBC (Bld) [#/Vol] 6.00 10*6/uL High 3.90-5.20 [facility] Foreign Exchange Clerk Comment on above: Performed By: #### C BC, CMP #### [facility] [address] [place], [place] [id number] RDW-SD 39.0 fL Normal 37.0-50.0 [facility] Foreign Exchange Clerk Comment on above: Performed By: #### C BC, CMP #### [facility] [address] [place], [place] [id number] WBC (Bld) [#/Vol] 9.0 10*3/uL Normal 3.8-11.0 [facility] [place] Foreign Exchange Clerk Comment on above: Performed By: #### C BC, CMP #### [facility] [address] [place], [place] [id number] [facility] 01-30-2022 Albumin [Mass/Vol] 4.3 g/dL Normal 3.6-5.1 [facility] Foreign Exchange Clerk Comment on above: Performed By: #### C BC, CMP #### [facility] [address] [place], [place] [id number] Albumin/Globulin [Mass ratio] 1.5 {ratio} Normal 1.0-2.5 [facility] Specialist Comment on above: Performed By: #### C BC, CMP #### [facility] [address] [place], [place] [id number] ALP [Catalytic activity/Vol] 148 U/L High 35-119 [facility] Specialist Comment on above: Performed By: #### C BC, CMP #### [facility] [address] [place], [place] [id number] ALT [Catalytic activity/Vol] 7 U/L Normal 6-33 [facility] Specialist Comment on above: Result Comment: 08/23 Female reference range changed. Performed By: #### C BC, CMP #### [facility] [address] [place], [place] [id number] Anion gap [Moles/Vol] 23 mmol/L High 12-20 [facility] [place] Specialist Comment on above: Result Comment: Effe ctive 09/28/2019 reference range changed. Performed By: #### C BC, CMP #### [facility] [address] [place], [place] [id number] AST [Catalytic activity/Vol] 11 U/L Normal 9-34 [facility] Comment on above: Performed By: #### C BC, CMP #### [facility] [address] [place], [place] [id number] Bilirubin [Mass/Vol] 0.36 mg/dL Normal 0.30-1.20 [facility] [place] Comment on above: Performed By: #### C BC, CMP #### [facility] [address] [place], [place] [id number] BUN/CREA 40 Ratio High 6-22 [facility] Comment on above: Performed By: #### C BC, CMP #### [facility] [address] [place], [place] [id number] Calcium [Mass/Vol] 10.0 mg/dL Normal 8.6-10.2 [facility] Comment on above: Performed By: #### C BC, CMP #### [facility] [address] [place], [place] [id number] Chloride [Moles/Vol] 92 mmol/L Low 98-107 [facility] [place] Comment on above: Performed By: #### C BC, CMP #### [facility] [address] [place], [place] [id number] CO2 [Moles/Vol] 21 mmol/L Normal 20-31 [facility] Comment on above: Performed By: #### C BC, CMP #### [facility] [address] [place], [place] [id number] Creatinine [Mass/Vol] 0.9 mg/dL Normal 0.6-1.[address] [facility] Comment on above: Performed By: #### C BC, CMP #### [facility] [address] [place], [place] [id number] eGFRAA 73 mL/min/1.73m2 Normal >60 [facility] Comment on above: Performed By: #### C BC, CMP #### [facility] [address] [place], [place] [id number] eGFRNAA 61 mL/min/1.73m2 Normal >60 [facility] Foreign Exchange Clerk Comment on above: Performed By: #### C BC, CMP #### [facility] [address] [place], [place] [id number] Globulin (S) [Mass/Vol] 2.9 g/dL Normal 1.9-3.7 [facility] Foreign Exchange Clerk Comment on above: Performed By: #### C BC, CMP #### [facility] [address] [place], [place] [id number] Glucose [Mass/Vol] 531 mg/dL Critically high 65-99 [facility] Foreign Exchange Clerk Comment on above: Result Comment: Crit ical result called to Abby Green at 01/30/2022 2:03 PM by Nicci Dailey (GLU) For FASTING Glucose --- ADA reference ranges: Normal 65-99 mg/dl Prediabetes 100-125 Diabetes >/= 126 Performed By: #### C BC, CMP #### [facility] [address] [place], [place] [id number] Potassium [Moles/Vol] 5.6 mmol/L High 3.5-5.[address] [facility] Comment on above: Result Comment: Spec imen is hemolyzed. Results may be affected. Performed By: #### C BC, CMP #### [facility] [address] [place], [place] [id number] Protein [Mass/Vol] 7.2 g/dL Normal 6.1-8.1 [facility] Foreign Exchange Clerk Comment on above: Performed By: #### C BC, CMP #### [facility] [address] [place], [place] [id number] Sodium [Moles/Vol] 130 mmol/L Low 135-146 [facility] Foreign Exchange Clerk Comment on above: Performed By: #### C BC, CMP #### [facility] [address] [place], [place] [id number] Urea nitrogen [Mass/Vol] 37 mg/dL High 7-25 [facility] Foreign Exchange Clerk Comment on above: Performed By: #### C BC, CMP #### [facility] [address] [place], [place] [id number] Hemoglobin A1Con 01-30-2022 EAG 274.74 Normal [facility] Foreign Exchange Clerk Comment on above: Performed By: #### A 1C #### [facility] [address] [place] [id number] HbA1c (Bld) [Mass fraction] 11.2 % High 4.0-6.0 [facility] Foreign Exchange Clerk Comment on above: Performed By: #### A 1C #### [facility] [address], [place] [id number] Lipaseon 01-30-2022 LIP2 147 IU/L High 13-60 [facility] Foreign Exchange Clerk Comment on above: Performed By: #### A MY, LIP #### [facility] [address], [place] [id number] Q - URINALYSIS,COMPLETEon Appearance (U) CLOUDY Abnormal CLEAR [facility] Foreign Exchange Clerk Comment on above: Order Comment: [facility] performed at: [employer], [facility], [address], [address] [place] [address], [address] [place] [address], Electrical Systems Drafter: Aung Boateng MD [facility] Date/Time: [facility] Results Received Date/Time: [facility] Reported Date/Time: Performed By: #### 3 4F #### [facility] Default [address] [place] [address] BACTERIA NONE SEEN Normal NONE SEEN [facility] Foreign Exchange Clerk Comment on above: Order Comment: [facility] performed at: [employer], [facility], [address], [address] [place] [address], [address] [place] [address], Electrical Systems Drafter: Aung Boateng MD [facility] Date/Time: [facility] Results Received Date/Time: [facility] Reported Date/Time: Performed By: #### 3 4F #### [facility] [address] [place] [address] Bilirubin Ql (U) Negative Normal NEGATIVE [facility] Foreign Exchange Clerk Comment on above: Order Comment: [facility] performed at: [employer], [facility], [address], [address] [place] [address], [address] [place] [address], Electrical Systems Drafter: Aung Boateng MD [facility] Date/Time: [facility] Results Received Date/Time: [facility] Reported Date/Time: Performed By: #### 3 4F #### [facility] [address] [place] [address] Color (U) YELLOW Normal YELLOW [facility] Foreign Exchange Clerk Comment on above: Order Comment: [facility] performed at: [employer], [facility], [address] [place] [address], [address] [place] [address], [address] [place] [address], Electrical Systems Drafter: Aung Boateng MD [facility] Date/Time: [facility] Results Received Date/Time: [facility] Reported Date/Time: Performed By: #### 3 4F #### [facility] [address] [place] [address] Glucose Ql (U) 3+ Abnormal NEGATIVE [facility] Specialist Comment on above: Order Comment: [facility] performed at: [employer], [facility], [address] [facility], [address] [place] [address], [address] [place] [address], Electrical Systems Drafter: Aung Boateng MD [facility] Date/Time: [facility] Results Received Date/Time: [facility] Reported Date/Time: Performed By: #### 3 4F #### [facility] [address] [place] [address] HYALINE CAST NONE SEEN Normal NONE SEEN [facility] Foreign Exchange Clerk Comment on above: Order Comment: [facility] performed at: [employer], [facility], [address] [place] [address], [address] [place] [address], [address] [place] [address], Electrical Systems Drafter: Aung Boateng MD [facility] Date/Time: [facility] Results Received Date/Time: [facility] Reported Date/Time: Performed By: #### 3 4F #### [facility] [address] [place] [address] Ketones Ql (U) TRACE Abnormal NEGATIVE [facility] Specialist Comment on above: Order Comment: [facility] performed at: [employer], [facility], [address] [place] [address], [address] [place] [address], Electrical Systems Drafter: Aung Boateng MD [facility] Date/Time: [facility] Results Received Date/Time: [facility] Reported Date/Time: Performed By: #### 3 4F #### [facility] [address] [place] [address] Leukocyte esterase Test strip Ql (U) 1+ Abnormal NEGATIVE [facility] Specialist Comment on above: Order Comment: [facility] performed at: [employer], [facility], [address] [facility], [address] [place] [address], [address] [place] [address], Electrical Systems Drafter: Aung Boateng MD [facility] Date/Time: [facility] Results Received Date/Time: [facility] Reported Date/Time: Performed By: #### 3 4F #### [facility] [address] [place] [address] Nitrite Ql (U) Negative Normal NEGATIVE [facility] Specialist Comment on above: Order Comment: [facility] performed at: [employer], [facility], [address] [facility], [address] [place] [address], [address] [place] [address], Electrical Systems Drafter: Aung Boateng MD [facility] Date/Time: [facility] Results Received Date/Time: [facility] Reported Date/Time: Performed By: #### 3 4F #### [facility] [address] [place] [address] OCCULT BLOOD 1+ Abnormal NEGATIVE [facility] Foreign Exchange Clerk Comment on above: Order Comment: [facility] performed at: [employer], [facility], [address] , [address] [place] [address], [address] [place] [address], Electrical Systems Drafter: Aung Boateng MD [facility] Date/Time: [facility] Results Received Date/Time: [facility] Reported Date/Time: Performed By: #### 3 4F #### [facility] [address] [place] [address] pH (U) 5.5 [pH] Normal 5.0-8.0 [facility] Foreign Exchange Clerk Comment on above: Order Comment: [facility] performed at: [facility], REC[facility]. [facility], [address] [facility], [address] [place] [address], [address] [place] [address], Electrical Systems Drafter: Aung Boateng MD [facility] Date/Time: [facility] Results Received Date/Time: [facility] Reported Date/Time: Performed By: #### 3 4F #### [facility] [address] [place] [address] Protein Ql (U) 2+ Abnormal NEGATIVE [facility] Foreign Exchange Clerk Comment on above: Order Comment: [facility] performed at: [facility], RECESS. [facility], [address] [place] [address], [address] [place] [address], [address] [place] [address], Electrical Systems Drafter: Aung Boateng MD [facility] Date/Time: [facility] Results Received Date/Time: [facility] Reported Date/Time: Performed By: #### 3 4F #### [facility] [address] [place] [address] RBC 0-2 Normal < OR = 2 [facility] Foreign Exchange Clerk Comment on above: Order Comment: [facility] performed at: [facility], [facility], [address] [place] [address], [address] [place] [address], [address] [place] [address], Electrical Systems Drafter: Aung Boateng MD [facility] Date/Time: [facility] Results Received Date/Time: [facility] Reported Date/Time: Performed By: #### 3 4F #### [facility] Default [address] [place] [address] Specific gravity (U) [Rel density] 1.033 Normal 1.001-1.035 [facility] Foreign Exchange Clerk Comment on above: Order Comment: [facility] performed at: [facility], [facility], [address] [place] [address], [address] [place] [address], [address] [place] [address], Electrical Systems Drafter: Aung Boateng MD [facility] Date/Time: [facility] Results Received Date/Time: [facility] Reported Date/Time: Performed By: #### 3 4F #### [facility] [address] [place] [address] SQUAMOUS EPITHELIAL CELLS NONE SEEN Normal < OR = 5 [facility] Foreign Exchange Clerk Comment on above: Order Comment: [facility] performed at: [employer], [facility], [address] , [address] [place] [address], [address] [place] [address], Electrical Systems Drafter: Aung Boateng MD [facility] Date/Time: [facility] Results Received Date/Time: [facility] Reported Date/Time: Performed By: #### 3 4F #### [facility] [address] [place] [address] TRANSITIONAL EPITHELIAL CELLS 0-5 Normal < OR = 5 [facility] Foreign Exchange Clerk Comment on above: Order Comment: [facility] performed at: [employer], [facility], [address] , [address] [place] [address], [address] [place] [address], Electrical Systems Drafter: Aung Boateng MD [facility] Date/Time: [facility] Results Received Date/Time: [facility] Reported Date/Time: Performed By: #### 3 4F #### [facility] [address] [place] [address] WBC 10-20 Abnormal < OR = 5 [facility] Foreign Exchange Clerk Comment on above: Order Comment: [facility] performed at: [employer], [facility], [address] , [address] [place] [address], [address] [place] [address], Electrical Systems Drafter: Aung Boateng MD [facility] Date/Time: [facility] Results Received Date/Time: [facility] Reported Date/Time: Performed By: #### 3 4F #### [facility] [address] [place] [address] YEAST MANY Abnormal NONE SEEN [facility] Foreign Exchange Clerk Comment on above: Order Comment: [facility] performed at: [facility], [address], [address] [facility], [place], [address], Electrical Systems Drafter: Aung Boateng MD [facility] Date/Time: [id number] [facility] Results Received Date/Time: [id number] [facility] Reported Date/Time: [id number] Performed By: #### 3 4F #### [facility] Default [address] [place] [address] CONSULTATIONon 04-09-2017 CONSULTATION [facility] ATIENT NAME: KIARA BLANC : 56[facility] REC NO: [id number] ROOM: 031CCOUNT NO: [id number] ADMISSION DATE: 03/25/17PHYSICIAN: KAREN ROQUEHISTORY: The patient [...] the office in two weeks.KAREN ROQUED:04/09/2017 21:50:05 [id number]#: [id number] Doc#: [id number] Normal [facility] Discharge Summaryon 03-27-20 17 HIM IP Note OR Hematologist Normal [facility] HIM IP Note OR Hematologist Normal [facility] Discharge Summaryon 03-26-20 17 HIM IP Note OR Hematologist Normal [facility] History and Physicalon 03-26 HIM IP Note OR Hematologist Normal [facility] APTTon 03-25-2017 aPTT 22.4 s Low 23.2-34.4 [facility] Comment on above: Result Comment: Perf ormed at [address] [place] [address] Performed By: #### P T, PTT ####[address] [place] [address] CBC with Diffon 03-25-2017 Abs. Bands 0.10 k/uL Normal 0.0-1.0 [facility] Comment on above: Performed By: #### C P, CDP ####[address] [place] [address] Abs. Basophil 0.00 k/uL Normal 0.0-0.2 [facility] Comment on above: Performed By: #### C P, CDP ####[address] [place] [address] Abs.Neutrophil (Seg) 7.66 k/uL Normal 1.8-7.7 [facility] Comment on above: Performed By: #### C P, CDP ####[address] [place] [address] Bands 1 % Normal [facility] Comment on above: Performed By: #### C P, CDP ####[address] , [facility] Basophils/100 WBC Auto (Bld) 0 % Normal [facility] Comment on above: Performed By: #### C P, CDP ####[address] [place] [address] Blood morphology Normal Normal [facility] Comment on above: Result Comment: Perf ormed at [address] [place], [facility]83 Performed By: #### C P, CDP ####[address] [place] [address] Eosinophils 0.10 10*3/uL Normal 0.0-0.4 [facility] Comment on above: Performed By: #### C P, CDP ####[address] , [facility] Eosinophils/100 leukocytes 1 % Normal [facility] Comment on above: Performed By: #### C P, CDP ####[address] [place] [address] Lymphocytes 1.16 10*3/uL Normal 1.0-4.8 [facility] Comment on above: Performed By: #### C P, CDP ####[address] [place] [address] Lymphocytes/100 leukocytes 12 % Normal [facility] Comment on above: Performed By: #### C P, CDP ####[address] , [place] [address] Monocytes 0.68 10*3/uL Normal 0.0-1.0 [facility] Comment on above: Performed By: #### C P, CDP ####[address] [place] [address] Monocytes/100 leukocytes 7 % Normal [facility] Comment on above: Performed By: #### C P, CDP ####[address] , [facility]83 Neutrophil (Seg) 79 % Normal [facility] Comment on above: Performed By: #### C P, CDP ####[address] [place] [id number] Erythrocyte distribution width Auto Ratio (RBC) 12.8 % Normal 12.1-15.2 [facility] Comment on above: Performed By: #### C P, CDP ####[address] [place] [address] Erythrocytes (RBC) 4.45 10*6/uL Normal 4.0-5.2 [facility] Comment on above: Performed By: #### C P, CDP ####[address] [place] [address] Hematocrit (HCT) 38.7 % Normal 36-46 [facility] Comment on above: Performed By: #### C P, CDP ####[address] [place] [address] Hemoglobin mass conc (Bld) 13.0 g/dL Normal 12.0-16.0 [facility] Comment on above: Performed By: #### C P, CDP ####[address] [place] [address] MCH 29.2 pg Normal 26-34 [facility] Comment on above: Performed By: #### C P, CDP ####[address] [place] [address] MCHC mass conc (RBC) 33.6 g/dL Normal 31-37 [facility] Comment on above: Performed By: #### C P, CDP ####[address] [place] [address] MCV 86.8 fL Normal 80-100 [facility] Comment on above: Performed By: #### C P, CDP ####[address] [place] [address] Platelets 239 10*3/uL Normal 140-450 [facility] Comment on above: Performed By: #### C P, CDP ####[address] [place] [address] WBC (Leukocytes) 9.7 10*3/uL Normal 3.5-11.0 [facility] Comment on above: Performed By: #### C P, CDP ####[address] [place] [address] Auto Diff Performed NOT REPORTED Normal [facility] Comment on above: Performed By: #### C P, CDP ####[address] [place] [address] Erythrocyte morphology NOT REPORTED Normal [facility] Comment on above: Performed By: #### C P, CDP ####[address] [place] [address] Platelet mean volume (PMV) NOT REPORTED Normal 6.0-12.0 [facility] Comment on above: Performed By: #### C P, CDP ####[address] [place] [address] Platelets NOT REPORTED Normal [facility] Comment on above: Performed By: #### C P, CDP ####[address] [place] [address] WBC Morphology NOT REPORTED Normal [facility] Comment on above: Performed By: #### C P, CDP ####[address] [place] [address] Comp Metabolic Profon 2016 (cont.) Normal [facility] Comment on above: Result Comment: Aver age GFR for 60-69 years old: 85 mL/min/1.73sq mChronic Kidney Disease: <60 mL/min/1.73sq mKidney failure: <15 mL/min/1.73sq meGFR calculated using average adult body mass. Additional eGFR calculator available at:http://www.RIVS.com/multiple_crcl_2012.htm Performed By: #### C P, CDP ####[address] [place] [address] Alanine aminotransferase (ALT) 14 U/L Normal 5-33 [facility] Comment on above: Performed By: #### C P, CDP ####[address] [place] [address] Albumin 3.4 g/dL Low 3.5-5.2 [facility] Comment on above: Performed By: #### C P, CDP ####[address] [place] [address] Albumin/Globulin Ratio 1.2 {ratio} Normal 1.0-2.5 [facility] Comment on above: Performed By: #### C P, CDP ####[address] , [facility] Alkaline Phos 102 U/L Normal 35-104 [facility] Comment on above: Performed By: #### C P, CDP ####[address] [place] [address] Anion gap 13 mmol/L Normal 9-17 [facility] Comment on above: Performed By: #### C P, CDP ####[address] , [facility]83 Aspartate aminotransferase (AST) 14 U/L Normal <32 [facility] Comment on above: Performed By: #### C P, CDP ####[address] [place] [address] Bilirubin Ql (U) 0.15 mg/dL Low 0.3-1.2 [facility] Comment on above: Performed By: #### C P, CDP ####[address] , [facility]83 BUN/CRE Ratio 34 High 9-20 [facility] Comment on above: Performed By: #### C P, CDP ####[address] [place] [address] Calcium 8.3 mg/dL Low 8.6-10.4 [facility] Comment on above: Performed By: #### C P, CDP ####[address] [place] [address] Chloride 108 mmol/L High 98-107 [facility] Comment on above: Performed By: #### C P, CDP ####[address] [place] [address] CO2 18 mmol/L Low 20-31 [facility] Comment on above: Performed By: #### C P, CDP ####[address] [place] [address] Creatinine 0.64 mg/dL Normal 0.50-0.90 [facility] Comment on above: Performed By: #### C P, CDP ####[address] , [facility]83 eGFR (non-black) mL/min/{1.73_m2} Normal >60 [facility] Comment on above: Performed By: #### C P, CDP ####[address] [place] [address] Glucose mass conc 368 mg/dL High 70-99 [facility] Comment on above: Performed By: #### C P, CDP ####[address] [place] [address] Potassium molar conc 4.7 mmol/L Normal 3.7-5.3 [facility] Comment on above: Performed By: #### C P, CDP ####[address] [place] [address] Protein 6.3 g/dL Low 6.4-8.3 [facility] Comment on above: Performed By: #### C P, CDP ####[address] [place] [id number] Sodium 139 mmol/L Normal 135-144 [facility] Comment on above: Performed By: #### C P, CDP ####[address] , [place] [address] Staging: Normal [facility] Comment on above: Result Comment: Stag e 1: Some kidney damage normal GFRStage 2: Mild kidney damage GFR 60-89Stage 3: Moderate kidney damage GFR 30-59Stage 4: Severe kidney damage GFR 15-29Stage 5: Severe kidney damage GFR <15ESRD - chronic treatment by dialysis or transplantPerformed at [address] [place] [address] Performed By: #### C P, CDP ####[address] [place] [address] Urea nitrogen 22 mg/dL Normal 8-23 [facility] Comment on above: Performed By: #### C P, CDP ####[address] [place] [address] Hemoglobin A1Con 03-25-2017 Glucose mass conc 220 mg/dL Normal [facility] Comment on above: Result Comment: The ADA and AACC recommend providing the estimated average glucose result to permit better patient understanding of their HBA1c result.Performed at [address] [place] [address] Performed By: #### G LYHGB ####[address] [place] [address] Hemoglobin A1c/Hemoglobin.total mass fraction (Bld) 9.3 % High 4.8-5.9 [facility] Comment on above: Performed By: #### G LYHGB ####[address] [place] [address] PTon 03-25-2017 INR Coag RelTime (PPP) 0.9 {INR} Normal 0.9-1.2 [facility] Comment on above: Result Comment: Perf ormed at [address] [place] [address] Performed By: #### P T, PTT ####[address] [place] [address] Prothrombin time (PT) Coag time (PPP) 9.7 s Normal 9.7-12.2 [facility] Comment on above: Performed By: #### P T, PTT ####[address] [place] [address] Type + Screenon 03-25-2017 Type + Screen Sample Expiration 03/28/2017 Arm Band Number [id number] ABO/Rh(D) O POSITIVE Antibody Screen NEGATIVEPerformed at [address] [place], [place] [address] ([phone] Normal [facility] Comment on above: Performed By: #### T YS ####[address] , [place] [address] XR CHEST PORTABLEon 03-25-20 17 XR CHEST PORTABLE FINAL REPORTEXAM: XR CHEST PORTABLEHISTORY: preoperative; RT HIP FX TECHNIQUE: AP portable erect chest PRIORS: None.FINDINGS: The heart and vascularity are normal. Both lungs are well-expanded and there are no pulmonary infiltrates.The osseous structures are maintained. IMPRESSION: Impression: No acute cardiopulmonary disease. Interpreted by:MAISHA Lassiterigned by:Peter Escobar MD03/25/17Final result Normal [facility] XR HIP 2-3 VW W PELVIS RIGHT [...] by:MAISHA Lassiterigned by:Peter Escobar MD03/25/17Final result Normal [facility] XR KNEE RIGHT STANDARDon XR KNEE RIGHT [...] by:MAISHA Lassiterigned by:Peter Escobar MD03/25/17Final result Normal [facility] Vital Signs Date Time Vital Sign Value Performing Clinician Sabi costa 07-18-2023 14:41-0400 Body height 165.1 cm Sonya Posada ADRIEN Work Phone: [facility] Work Phone: 07-18-2023 14:41-0400 Body mass index (BMI) [Ratio] 31.5 kg/m2 Sonya Posada CNP Work Phone: [facility] Work Phone: 07-18-2023 14:41-0400 Body surface area Derived from formula 1.9 m2 Sonya Posada [employer] ANALYST Work Phone: [facility] Work Phone: 07-18-2023 14:41-0400 Body temperature 97.9 [degF] Sonya Posada CNP Work Phone: [facility] Work Phone: 07-18-2023 14:41-0400 Body weight 85.73 kg Sonya Posada CNP Work Phone: [facility] Work Phone: 07-18-2023 14:41-0400 Diastolic blood pressure 60 mm[Hg] Sonya Posada CNP Work Phone: [facility] Work Phone: 07-18-2023 14:41-0400 Heart rate 106 /min Sonya Carlo [employer] ANALYST Work Phone: [facility] Work Phone: 07-18-2023 14:41-0400 Respiratory rate 16 /min Sonya Srer [employer] CONTRACT ANALYST Work Phone: [facility] Work Phone: 07-18-2023 14:41-0400 SaO2% (BldA) [Mass fraction] 92 % Sonya Srer [employer] ANALYST Work Phone: [facility] Work Phone: 07-18-2023 14:41-0400 Systolic blood pressure 108 mm[Hg] Sonya Carlo GROUP CONTRACT ANALYST Work Phone: [facility] Work Phone: 03-11-2023 13:35-0400 Body temperature 97.11 [degF] Sonya Carlo SALES FORCE DEVELOPER - TERADATA DEVELOPER Work Phone: [employer] 03-11-2023 13:35-0400 Diastolic blood pressure 60 mm[Hg] Sonya Carlo SALES FORCE DEVELOPER - TERADATA DEVELOPER Work Phone: [facility] 03-11-2023 13:35-0400 Heart rate 92 /min Sonya Srer SALES FORCE DEVELOPER - TERADATA DEVELOPER Work Phone: [email or web address] 03-11-2023 13:35-0400 Respiratory rate 18 /min Sonya Carlo SALES FORCE DEVELOPER - TERADATA DEVELOPER Work Phone: [facility] 03-11-2023 13:35-0400 SaO2% (BldA) [Mass fraction] 98 % Sonya Carlo SALES FORCE DEVELOPER - TERADATA DEVELOPER Work Phone: [email or web address] [facility] 03-11-2023 13:35-0400 Systolic blood pressure 106 mm[Hg] Sonya Carlo SALES FORCE DEVELOPER - TERADATA DEVELOPER Work Phone: [employer] 03-07-2023 15:37-0400 Body height 165.1 cm Sonya Carlo [employer] CONTRACT ANALYST Work Phone: [facility] Work Phone: 03-07-2023 15:37-0400 Body mass index (BMI) [Ratio] 33.4 kg/m2 Sonya Posada CNP Work Phone: [facility] Work Phone: 03-07-2023 15:37-0400 Body surface area Derived from formula 2 m2 Sonya Posada CNP Work Phone: [facility] Work Phone: 03-07-2023 15:37-0400 Body temperature 98.5 [degF] Sonya Posada CNP Work Phone: [facility] Work Phone: 03-07-2023 15:37-0400 Body weight 91.17 kg Sonya Posada CNP Work Phone: [facility] Work Phone: 03-07-2023 15:37-0400 Diastolic blood pressure 55 mm[Hg] Sonya Posada CNP Work Phone: [facility] Work Phone: 03-07-2023 15:37-0400 Heart rate 64 /min Sonya Posada CNP Work Phone: [facility] Work Phone: 03-07-2023 15:37-0400 SaO2% (BldA) [Mass fraction] 96 % Sonya Posada CNP Work Phone: [facility] Work Phone: 03-07-2023 15:37-0400 Systolic blood pressure 115 mm[Hg] Sonya Posada CNP Work Phone: [facility] Work Phone: Encounters Encounter Date Encounter Type Care Provider Facility Start: 11-06-2023 End: 11-06-2023 ambulatory NON STAFF Facility:[facility] Start: 11-06-2023 End: 11-06-2023 ambulatory [facility] Work Phone: Start: 11-06-2023 End: 11-06-2023 Departed Referred [facility] Start: 06-12-2023 End: [facility] Start: 05-14-2023 End: 05-14-2023 ambulatory PHYSICIAN NO FAMILY Facility:[facility] Start: 05-14-2023 End: 05-14-2023 ambulatory 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 [employer]HTER-BC Angy Patel Work Phone: [facility] Work Phone: Start: 05-14-2023 End: 05-14-2023 Departed Referred 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HTER[employer]BC Angy Patel Work Phone: [facility] [place] Work Phone: Start: 05-04-2023 Evaluation and management of inpatient [facility] Start: 05-01-2023 Evaluation and management of inpatient [facility] Start: 04-26-2023 End: 05-06-2023 Evaluation and management of inpatient CHANDNI [facility] Start: 03-11-2023 End: 03-11-2023 Emergency department patient visit Sonya Srmarlen SOFIAN - TERADATA DEVELOPER Work Phone: [facility] ED Comment on above: Acute cystitis witho ut hematuria (Primary Dx) Start: 03-07-2023 End: 03-07-2023 FQHC visit, estab pt Sobia MALDONADO Work Phone: [facility] Work Phone: Start: 03-07-2023 End: 03-07-2023 FQHC visit new patient Sonya Posada ADRIEN Work Phone: [facility] Work Phone: Start: 03-07-2023 End: 07-18-2023 FQHC visit, estab pt Soco Alcantar GROUP CONTRACT ANALYST Work Phone: [facility] Work Phone: Start: 03-07-2023 End: 03-08-2023 ambulatory SONYA POSADA [facility] Start: 01-22-2023 ambulatory Sonya Posada CNP [facility] Start: 01-10-2023 End: 01-10-[address] MITZY HURD Facility:[facility] Start: 01-06-2023 End: 01-06-2023 ambulatory YAZAN FABIAN Facility:[facility] Start: 01-01-2023 End: 01-02-[address] IGGY FRASER Facility:[facility] Start: 11-08-2022 End: 11-13-2022 ambulatory YAMILKA DONAHUE . Facility:[facility] Start: 08-23-2022 End: 08-23-[address] ALFRED ROBERT . Facility:[facility] Start: 07-31-2022 End: 07-31-2022 ambulatory REINALDO MARLOW Facility:[facility] Start: 07-18-2022 End: 07-19-2022 ambulatory ALFRED SAHU Facility:[facility] Start: 05-25-[address] PETER SANTOS Facilit y:[facility] Start: 05-13-2022 End: 05-14-[address] PETER SANTOS Facility:[facility] Start: 03-16-2022 End: 03-25-2022 Evaluation and management of inpatient YRIS QUAN Facility:[facility] Start: 03-16-2022 End: 03-16-[address] PETER SANTOS Facility:[facility] Start: 02-23-2022 ambulatory ALFRED SAHU Facility:[facility] Start: 02-16-2022 End: 02-17-[address] PETER SANTOS Facility:[facility] Start: 02-01-2022 End: 02-01-[address] PETER SANTOS Facility:[facility] Start: 07-07-2019 End: 07-07-2019 Patient encounter procedure Peter Santos -CT Scan [facility] [place] Start: 03-25-2017 End: 03-27-2017 Evaluation and management of inpatient CAMERON [facility] Procedures Date Procedure Procedure Detail Performing Clinician Start: 07-18-2023 Current tobacco smoker Soco Alcantar [employer] ANALYST Work Phone: Start: 07-18-2023 Eye img valid match dx 7 stnd fld w/evc rtnopthy Soco Alcantar [employer] CONTRACT ANALYST Work Phone: Start: 07-18-2023 Foot examination performed Soco Alcantar CNP Work Phone: Start: 07-18-2023 Hemoglobin glycosylated a1c Soco Alcantar CNP Work Phone: Start: 07-18-2023 Most recent diastoli c blood pressure < 80 mm hg Soco Alcantar [employer] CONTRACT ANALYST Work Phone: Start: 07-18-2023 Most recent hg a1c>e qual to 8.0%& Soco Alcantar GROUP CONTRACT ANALYST Work Phone: Start: 07-18-2023 Most recent systolic blood pressure <130 mm hg Soco Alcantar [employer] CONTRACT ANALYST Work Phone: Start: 07-18-2023 Pt scrnd tobacco use rcvd tobacco cessation talk Soco Alcantar [employer] CONTRACT ANALYST Work Phone: Start: 07-18-2023 Remote imaging mgt r etinal disease w/i&r uni/b Soco Alcantar GROUP CONTRACT ANALYST Work Phone: Start: 03-11-2023 Basic metabolic pane l calcium total Codi ASHTON-C Work Phone: Start: 03-11-2023 Urinalysis microscopic only Codi ASHTON-C Work Phone: Start: 03-11-2023 Urnls dip stick/tabl et rgnt auto w/o microscopy Codi [facility] Work Phone: Start: 03-07-2023 Creatinine other source Sonya Posada GROUP CONTRACT ANALYST Work Phone: Start: 03-07-2023 Current tobacco smoker Sonya Posada GROUP CONTRACT ANALYST Work Phone: Start: 03-07-2023 Drug test prsmv read direct optical obs pr date Sonya Posada GROUP CONTRACT ANALYST Work Phone: Start: 03-07-2023 Hysterectomy Sonya Tab er GROUP CONTRACT ANALYST Work Phone: Start: 03-07-2023 Knee Replacement Left C sho Posada GROUP CONTRACT ANALYST Work Phone: Start: 03-07-2023 Knee Replacement Right Sonya Posada GROUP CONTRACT ANALYST Work Phone: Start: 03-07-2023 Psychotherapy w/lasha ent 30 minutes Sobia RAYMUNDOWS Work Phone: Start: 03-07-2023 Pt scrnd tobacco use rcvd tobacco cessation talk Sonya Posada GROUP CONTRACT ANALYST Work Phone: Start: 03-07-2023 Surgical procedure Hayley Srer GROUP CONTRACT ANALYST Work Phone: Start: 03-07-2023 Urine albumin quantitative Sonya Posada GROUP CONTRACT ANALYST Work Phone: Start: 03-07-2023 Urnls dip stick/tabl et rgnt non-auto w/o micrscp Sonya Posada GROUP CONTRACT ANALYST Work Phone: Start: 07-07-2019 CT chest wo con Peter Santos Start: 03-27-2017 DISCHARGE PATIENT CAMERON LAURENT Start: 03-27-2017 POCT GLUCOSE CAMERON FELT ON Start: 03-27-2017 GLUCOSE, WHOLE BLOOD JON LAURENT Start: 03-27-2017 POCT GLUCOSE CAMERON FELT ON Start: 03-27-2017 GLUCOSE, WHOLE BLOOD OJN LAURENT Start: 03-27-2017 POCT GLUCOSE CAMERON FELT ON Start: 03-27-2017 INTAKE AND OUTPUT CAMERON MEHRAN Start: 03-26-2017 GLUCOSE, WHOLE BLOOD JON LAURENT Start: 03-26-2017 POCT GLUCOSE CAMERON FELT ON Start: 03-26-2017 GLUCOSE, WHOLE BLOOD JA KANA LAURENT Start: 03-26-2017 POCT GLUCOSE CAMERON FELT ON Start: 03-26-2017 POCT GLUCOSE CAMERON FELT ON Start: 03-26-2017 DIET CARB CONTROL CAMERON ALFREDON Start: 03-26-2017 GLUCOSE, WHOLE BLOOD JON LAURENT Start: 03-26-2017 POCT GLUCOSE CAMERON FELT ON Start: 03-26-2017 DAILY WEIGHTS CAMERON JI Start: 03-26-2017 INTAKE AND OUTPUT CAMERON LAURENT Start: 03-25-2017 GLUCOSE, WHOLE BLOOD JON LAURENT Start: 03-25-2017 BEDREST CAMERON FELT ON Start: 03-25-2017 CATHETER REMOVAL CAMERON LAURENT Start: 03-25-2017 FULL CODE CAMERON AUBRIE ON Start: 03-25-2017 INTAKE AND OUTPUT CAMERON MEHRAN Start: 03-25-2017 IP CONSULT TO CASE MANAGEMENT CAMERON MEHRAN Start: 03-25-2017 NOTIFY PHYSICIAN (SPECIFY) CAMERON MEHRAN Start: 03-25-2017 NURSING COMMUNICATION Gay COSME MEHRAN Start: 03-25-2017 OT EVAL AND TREAT CAMERON MEHRAN Start: 03-25-2017 POCT GLUCOSE CAMERON AUBRIE ON Start: 03-25-2017 PT EVAL AND TREAT CAMERON MEHRAN Start: 03-25-2017 PULSE OXIMETRY SPOT CHECK CAMERON MEHRAN Start: 03-25-2017 REASON FOR NO CHEMIC AL VTE PROPHYLAXIS CAMERON MEHRAN Start: 03-25-2017 TELEMETRY MONITORING JA KANA MEHRAN Start: 03-25-2017 TOBACCO CESSATION EDUCATION CAMERON MEHRAN Start: 03-25-2017 VERIFY INFORMED CONSENT CAMERON MEHRAN Start: 03-25-2017 VITAL SIGNS CAMERON ALFRED ON Start: 03-25-2017 PATIENT STATUS (FROM ED OR OR/PROCEDURAL) CAMERON LAURENT Start: 03-25-2017 Chest x-ray 1 view frontal CAMERON LAURENT Start: 03-25-2017 APTT CAMERON AUBRIE ON Start: 03-25-2017 CBC WITH AUTO DIFFERENTIAL CAMERON LAURENT Start: 03-25-2017 COMPREHENSIVE METABO LIC PANEL CAMERON LAURENT Start: 03-25-2017 HEMOGLOBIN A1C CAMERON HI Start: 03-25-2017 PROTIME-INR CAMERON AUBRIE ON Start: 03-25-2017 TYPE AND SCREEN CAMERON Caridad LUCILA Start: 03-25-2017 CATHETER REMOVAL CAMERON LAURENT Start: 03-25-2017 INSERT HAYS CATHETER Gay LAURENT Start: 03-25-2017 HAYS/UROLOGY CARE ISLVIODaniela ALFREDON Start: 03-25-2017 EKG 12-LEAD CAMERON ALFRED ON Start: 03-25-2017 SALINE LOCK IV CAMERON ZAVALA LTRAJ Start: 03-25-2017 Radiologic examinati on knee 3 views CAMERON LAURENT Start: 03-25-2017 Radex hip unilateral with pelvis 2-3 views CAMERON LAURENT Plan of Treatment Date Care Activity Detail Author Start: 03-11-2024 GFR test (Diabetes, CKD 3-4, OR last GFR 15-59) GFR test (Diabetes, CKD 3-4, OR last GFR 15-59) [facility] Start: 08-19-2023 FQHC visit, estab pt Medical E stablished Patient [facility] Work Phone: Start: 07-18-2023 End: 07-18-2023 Patient education based on identified need [facility] Start: 04-06-2023 Urine Culture & Sensitivity (48037) [facility] Start: 03-21-2023 FQHC visit, estab pt Medical E stablished Patient [facility] Work Phone: Start: 03-08-2023 Annual Wellness Visi t (AWV) Annual Wellness Visit (AWV) [facility] [employer] Start: 03-07-2023 End: 03-07-2023 Patient education based on identified need [facility] Start: 03-07-2023 CBC W Auto Different ial panel - Blood [facility] Start: 03-07-2023 Lipid 1996 panel - S elizabeth or Plasma LIPID PROFILE [facility] Start: 10-31-2021 COVID-19 Vaccine (5 - Booster for Moderna series) COVID-19 Vaccine (5 - Booster for Moderna series) [facility] [email or web address] Start: 03-25-2018 Hemoglobin A1c measurement A1C test (Diabetic or Prediabetic) [facility] [email or web address] Start: 2011 Screening for osteoporosis DEXA (modify frequency per FRAX score) [facility] [email or web address] Start: 2006 Screening for malign ant neoplasm of breast Breast cancer screen [facility] [email or web address] Start: 2006 Shingles vaccine (1 of 2) Shingles vaccine (1 of 2) [facility] [email or web address] Start: 2001 Screening for malign ant neoplasm of colon [facility] Start: 1975 DTaP/Tdap/Td vaccine (1 - Tdap) DTaP/Tdap/Td vaccine (1 - Tdap) [facility] Start: 1974 Glaucoma screening Diabetic retinal exam [facility] Start: 1974 Hepatitis C screening Hepatitis C sc reen [facility] [email or web address] Start: 1974 Urine screening for protein Diabetic Alb to Cr ratio (uACR) test [facility] Start: 1968 Depression Monitoring Depression Mon itoring [facility] Start: 1966 Diabetic foot examination Diabetic foot exam [facility] Start: 1966 Lipid panel Lipids [facility] End: 03-11-2023 Culture, Urine [facility] Work Phone: Comment on above: Once for 1 Occurrenc es starting 03/11/2023 until 03/11/2023 Immunizations Immunization Date Immunization Notes Care Provider Valeria winston 01-02-2023 pneumococcal polysaccharide vaccine, 23 valent Sonya Carlo GROUP CONTRACT ANALYST Work Phone[facility] 09-05-2021 1st Dose MODERNA COV ID-19 Vaccine Sonya Carlo GROUP CONTRACT ANALYST Work Phone: [facility] 08-08-2021 diphtheria, tetanus toxoids and pertussis vaccine Sonya Carlo GROUP CONTRACT ANALYST Work Phone: [facility] 08-07-2021 influenza, high dose seasonal, preservative-free Sonya Carlo GROUP CONTRACT ANALYST Work Phone: [facility] 01-01-2021 1st Dose MODERNA COV ID-19 Vaccine Sonya Carlo GROUP CONTRACT ANALYST Work Phone: [facility] 12-05-2020 1st Dose MODERNA COV ID-19 Vaccine Sonya Carlo GROUP CONTRACT ANALYST Work Phone: [facility] 08-30-2020 Seasonal, quadrivale nt, recombinant, injectable influenza vaccine, preservative free Sonya Carlo GROUP CONTRACT ANALYST Work Phone: [facility] 08-28-2019 influenza, injectabl e, quadrivalent, contains preservative Sonya Carlo GROUP CONTRACT ANALYST Work Phone: [facility] 09-20-2016 influenza, seasonal, injectable, preservative free Sonya Carlo GROUP CONTRACT ANALYST Work Phone: [facility] Payers Date Payer Category Payer Self-pay [id number] 2014 Medicare [id number] 2014 Medicare [id number] 1959 Self-pay [id number] 1959 Unknown [id number] 1956 Unknown [id number] 1956 Unknown [id number] 1956 Unknown [id number] 2.16.84 [id number] 1955 Unknown [id number] 2.16.84 0.1.527596.3.579.2.593 1955 Unknown [id number] 2.16.84 0.1.023844.3.579.2.593 1955 Unknown [id number] 2.16.84 0.1.616822.3.579.2.593 1955 Unknown [id number] 2.16.84 0.1.831607.3.579.2.593 1955 Unknown [id number] 2.16.84 0.1.378142.3.579.2.593 1955 Unknown [id number] 2.16.84 0.1.811136.3.579.2.593 1955 Unknown [id number] 2.16.84 0.1.594377.3.579.2.593 1955 Unknown [id number] 2.16.84 0.1.765506.3.579.2.593 1955 Unknown [id number] 2.16.84 0.1.498166.3.579.2.593 1955 Unknown [id number] 2.16.84 0.1.111080.3.579.2.593 1955 Unknown [id number] 2.16.84 0.1.075695.3.579.2.593 1955 Unknown [id number] 2.16. 840.1.725615.3.579.2.175 Medicare Medicare [id number] Private Health Insurance [facility] [id number] Unknown [id number] 2.16.8 40.1.401662.3.579.2.531 Unknown [id number] 2.16.8 40.1.276776.3.579.2.531 Social History Date Type Detail Facility Tobacco smoking status NHIS Unknown if ever smoked [facility] Start: 1955 Sex Assigned At Female F [facility] Assertion Lives with spous e (finding) [facility] Assertion Emotional stress (finding) [facility] Assertion Cigarette smoker (finding) [facility] Start: 09-04-2018 Assertion Smoker (finding) [facility] Assertion Exposure to poll ution (event) [facility] Tobacco smoking status Unknown if ever smoked [facility] Work Phone: Start: 03-25-2017 Tobacco smoking status NHIS Smokes tobacco daily [facility] Start: 03-25-2017 Cigarettes smoked current (pack per day) - Reported 0.5 [facility] Start: 03-11-2023 Alcohol intake 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 (finding) [facility] Start: 1955 Sex Assigned At Not on file B ON [employer] Assertion Gender identity finding (finding) [facility] Assertion Finding of sexua l orientation (finding) [facility] Assertion Currently not se xually active (finding) [facility] NEGATED: Highlighted row Assertion Current drinker of alcohol (finding) [facility] NEGATED: Highlighted row Assertion [facility] NEGATED: Highlighted row Assertion Finding relating to drug misuse behavior (finding) [facility] Medical Equipment Procedure Code Equipment Code Equipment Origin al Text Equipment Identifier Dates ReliOn Pen Needl es 31G X 6 MM Miscellaneous [id number] Start: 06-25-2023 Goals Date Patient Goal Desired Activity /State Mental Status Date Assessment Result Facility Cognitive function The estimated intelligence was normal Intelligence finding (finding) [facility] Work Phone: Clinical Notes 03-25-2022 to 07-18-2023 Note Date & Type Note Facility 07-18-2023 Instructions Includes: Instructions for all patient encounters Discussed nutritional needs teach healthy choices including fruits and vegetables Last Documented On 3 2:45PM ; [facility] Patient education about a pr oper diet Last Documented On 3 2:45PM ; [facility] Discussed concerns about exe rcise : promote physical activity Last Documented On 3 2:45PM ; [facility] Referred Patient to a Diabet es Self-Management Program Last Documented On 3 3:12PM ; [facility] introduced patient to [facility] integrated model of care. ~[facility] provided supportive and active listening, allowing patient the space to discuss concerns and explored with patient coping strategies and resources for support. Patient declines additional resources at this time but is aware to reach out to the office should she have questions or concerns. ~[facility] encouraged patient to continue addressing physical health needs and attend appointments as scheduled Last Documented On 3 9:52PM ; [facility] Discussed nutritional needs teach healthy choices including fruits and vegetables Last Documented On 3 3:42PM ; [facility] Patient education about a pr oper diet Last Documented On 3 3:42PM ; [facility] Discussed concerns about exe rcise : promote physical activity ~ ~Get labs done and follow up in two weeks Last Documented On 3 5:15AM ; [facility] Referred Patient to a Diabet es Self-Management Program Last Documented On 3 4:08PM ; [facility] Work Phone: 1(983) 926-215410-26-2023 Evaluation note Includes: Assessments for all patient encounters Findings Encounter Date [Z68.31 - Body mass index [B FL] 31.0-31.9, adult] assessment of body mass index Medical Established Patient with Soco Alcantar CNP 07/18/2023 Last Documented On 3 2:26PM ; [facility] Dependence on nicotine in ci garettes - uncomplicated Medical Established Patient with Soco Alcantar GROUP CONTRACT ANALYST 07/18/2023 Last Documented On 3 2:26PM ; [facility] Essential hypertension Medical Establish ed Patient with Soco Alcantar GROUP CONTRACT ANALYST 07/18/2023 Last Documented On 3 2:26PM ; [facility] Type 2 diabetes mellitus wit hout complication Medical Established Patient with Soco Alcantar GROUP CONTRACT ANALYST 07/18/2023 Last Documented On 3 2:26PM ; [facility] 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 Medical Established Patient with Soco Alcantar GROUP CONTRACT ANALYST 07/18/2023 Last Documented On 3 2:26PM ; [facility] Anxiety disorder NOS Established Patient with Sobia Short LISWS 03/07/2023 Last Documented On 3 9:52PM ; [facility] Dependence on nicotine in ci garettes - uncomplicated BH Established Patient with Sobia Short LISWS 03/07/2023 Last Documented On 3 9:52PM ; [facility] Mild recurrent major depression Estab lished Patient with Sobia Short LISWS 03/07/2023 Last Documented On 3 9:52PM ; [facility] [Body mass index [BMI] 33.0- 33.9, adult] assessment of body mass index Medical New Patient with Sonya Posada GROUP CONTRACT ANALYST 03/07/2023 Last Documented On 3 7:51PM ; [facility] Colon screening Medical New Patient with Sonya Srer GROUP CONTRACT ANALYST 03/07/2023 Last Documented On 3 7:51PM ; [facility] Diabetes Risk Test Score was 7.0 score 03/07/2023 Medical New Patient with Sonya Carlo GROUP CONTRACT ANALYST 03/07/2023 Last Documented On 3 7:51PM ; [facility] Screening for Hep C Medical New Patient with Ronnie selvin Carlo GROUP CONTRACT ANALYST 03/07/2023 Last Documented On 3 7:51PM ; [facility] Screening for HIV Medical New Patient with Joselyn Posada CNP 03/07/2023 Last Documented On 3 7:51PM ; [facility] Work Phone: 1(132) 695-594110-26-2023 History general Narrative - Reported Includes: Medical History in patient's chart Description Last Updated Not planning to have a baby in the next 12 months 07/18/2023 Last Documented On 3 2:26PM ; [facility] History of tooth extraction 03/07/2023 Last Documented On 3 7:51PM ; [facility] No medical history or no significant his tory 03/07/2023 Last Documented On 3 7:51PM ; [facility] No previous hospitalizations 03/07/2023 Last Documented On 3 7:51PM ; [facility] Recent immunization for flu 03/07/2023 Last Documented On 3 7:51PM ; [facility] Work Phone: 1(736) 220-975310-26-2023 Progress note* Progress note Date Encounter Last Documented by 07/18/2023 Medical Established Patient Last documented on 07/19/2023; 2:26 PM, Soco Alcantar GROUP CONTRACT ANALYST; [facility] Active Problems & Conditions - F41.9 - [...] For Visit Visit for: [facility] Referred Here Not referred by urgent care [...] reports that she was recently in a custodial and was discharged about 2 weeks ago. Patient reports that she was admitted to the custodial after a fall. Has not had any falls since being home. Patient reports that she is not sure how long she was in the custodial, states she was in the hospital prior to the custodial admission but only for a few days. Patient reports that she thinks she was a [facility]. Patient reports that she checks sugars once [...] 0 days, 0 refills - ReliOn Pen [place] 31G X 6 MM Miscellaneous 31G X [...] 07/18/2023 02:41 pm BP-Sitting L108/60 mmHg Pulse Rate-Wvjfmww766 bpm Respiration Rate16 per min Temp-Hglyjpfw65.9 F Wpafml84 in Bdvltg025 lbs Body Mass Index31.5 kg/m2 Body Surface Area1.9 m2 Oxygen Cxkmfmbxns33 % Vital Signs: - Systolic blood pressure [...] mammogram ordered, will look for colonoscopy at [facility]. Patient to follow up in [...] : Not at all. Bottom of Document [facility] Chief Complaint: Patient here for follow up NSTEMI. She denies chest pain, SOB, and palpitations. Gets a little lightheaded at times. She was discharged on Entresto and Farxiga but neither of them are on her medication list from the custodial. HPI: Kiara Blanc is a 68 y.o. female with a known history of coronary artery disease, prior coronary artery bypass graft surgery, who was recently admitted to [facility] (See hospital discharge summary below) Thankfully, she is more herself and recognizes me instantly She denies new cardiovascular symptoms; specifically, she denies chest pain, shortness of breath, orthopnea, paroxysmal external dyspnea or lower extremity edema. Hospital course: Kiara Blanc is an 68 y.o. female who came from [facility] for NSTEMI. Patient was admittied initailly at [facility] with known history of CAD, HLD, CAD, [...] Disp: , Rfl: meto (more content not included)...[facility]08-14-2023 NotePhysical Therapy Physical Therapy Treatment Patient Name: Kiara Blanc : 1955 Today's Date: 05/06/2023 Patient Active Problem List Diagnosis Coronary artery disease involving wainwright coronary artery of wainwright heart without angina pectoris Hyperlipidemia, mixed Edema of lower extremity Chronic diastolic heart failure (CMS/HCC) Tobacco dependence NSTEMI (non-ST elevated myocardial infarction) (CMS/HCC) Acute cystitis without hematuria Hypoglycemia Traumatic rhabdomyolysis ([facility]) Acute on chronic systolic (congestive) heart failure ([facility]) Time : 13:09-13:48 05/06/23 1350 PT Last Visit PT Received On 05/06/23 General Subjective Pt per nursing can be seen for P.T. services per nursing staff , upon service writer advisor entering the room pt was sidelying in the bed with her brief half off pt was awake and service writer advisor asked pt about getting out of bed and to go to the bathroom to check her brief. Pt willing to get up and work with therapy Cognition Overall Cognitive Status Impaired Arousal/Alertness Delayed responses to stimuli;Inconsistent responses to stimuli Orientation Level Disoriented to time;Disoriented to situation;Disoriented to place (pt looking for her dog again today service writer advisor had to explain to pt that she is not at home and her dog is at home with her . Pt could no longer use the phone today and did not even hold it the right way up to her ear) Awareness of Errors Decreased awareness of errors Problem Solving Assistance required to implement solutions Cognition Comments pts told service writer advisor in the past that pt has dementia. [...] light in place Plan PT Discharge Recommendations correction facility placement Goals: Multi-Disciplinary Problems (from Physical [...] a railing 1 Mobility 6 Clicks T-Score 15[facility]08[facility] Note Discharge order placed. AVS uploaded to [facility]. Transport set up with [facility] at 4PM. Transport form and packet completed and left bedside the chart. Facility and floor RN aware of transport time. Phone number for report left with packet. No further OTM needs at this time.[facility] 05-06-2023 NoteHospital Medicine Discharge Summary Final Discharge Diagnosis: NSTEMI (non-ST elevated myocardial infarction) (CMS/[facility]) Admission Diagnosis: NSTEMI (non-ST elevated myocardial infarction) ([facility]) [I21.4] Hospital course: Kiara Blanc is an 68 y.o. female who came from [facility] for NSTEMI. Patient was admittied initailly at [facility] with known history of CAD, HLD, CAD, [...] capsule Commonly known a (more content not included)...[facility]08-14-2023 NoteThis report has been cancelled.[facility]08-14-2023 Note Attestation signed by Luis Alvarez DO at 05/06/2023 1:32 PM Agree with above. No behavioral complaints over the weekend. Recommend following PT/Ot's recommendations regarding placement. Psychiatry Service Progress Note Identifying Data Patient Name: Kiara Blanc MRN / CSN: [id number] Date of / Age: 6 1955 / 68 y.o. / female Encounter Date: 05/06/23 Diagnosis: The primary encounter diagnosis was NSTEMI (non-ST elevated myocardial infarction) (CMS/HCC). A diagnosis of Acute on chronic systolic (congestive) heart failure (CMS/HCC) was also pertinent to this visit. Summary Kiara Blanc is a 68 y.o. female who presented on 04/26/2023 to [facility] from [facility] ([facility]) for acute NSTEMI. Psychiatry was consulted on 04/29/2023 for dementia and delirium. Medical Course: Patient is a 68-year-old female with an unknown psychiatric history and medical history of CAD, HLD, CAD, chronic diastolic HF w/ NYHA Class II, diabetes mellitus presented to [facility] as a direct transfer for cardiology service evaluation for acute NSTEMI. She was admitted initially at [facility] ([facility]) on 04/25/2023 after she was found [...] over 1000. She was subsequently transferred to [facility] for cardiac evaluation. She was started on [...] talk to , Mr. Cameron Blanc (ph: [phone]) at the patient's bedside. He called EMS [...] Social work has put in referrals to [facility] 1st choice; [facility] 2nd choice as well as alternate choices had no preference of order: [facility], [facility]; [facility]; [facility] and [facility]. Awaiting their review. 05/03/23 - start [...] Initially sleeping, but up (more content not included)...[facility]08-13-2023 Note Hospital Medicine Daily Progress Note - 05/05/2023 10:49 AM; Room: [facility] Admission: 04/26/2023 1:50 PM; Length of stay: 9 days THE HOSPITALIST TEAM PREFERS TO USE [employer] CHAT FOR COMMUNICATION 7AM-7PM. IF I DO NOT RESPOND WITHIN 15 MINUTES, PLEASE PAGE ME/CALL THROUGH THE MANUFACTURING ENGINEERING TECHNICIAN. FROM 7PM-7AM, PLEASE PAGE [phone](COVR) Code Status: Full Code Discharge Destination: intermediate facility Discharge planning: Pending SNF Overview Patient [...] Principal Problem: NSTEMI (non-ST elevated myocardial infarction) (CMS/[facility]) Active Problems: Acute cystitis without hematuria Hypoglycemia Traumatic rhabdomyolysis ([facility]/HCC) Acute on chronic systolic (congestive) heart failure ([facility]) Assessment and Plan # NSTEMI: # [...] 51 04/26/2023 Lab Results Component Value Date [id number] 512 04/29/2023 Imaging ECG 12 lead Sinus tachycardia Septal infarct , age undetermined T wave abnormality, consider lateral ischemia Abnormal ECG Confirmed by ELTAHAWY, MD, EHAB ([id number]) on 05/04/2023 11:50:40 AM Discharge Planning Discharge Planning Living Arrangements: Spouse/significant other Support Systems: Spouse/significant other Type of Residence/Post Acute Needs: correction facility Will patient need Precert for Post Acute needs?: Yes Patient's goal for discharge: per patient should go to rehab and maybe care home care. Does the patient need discharge transport arranged?: Yes Has discharge transport been arranged?: No PT Discharge Recommendations: correction facility placement OT Discharge Recomm (more content not included)...[facility]08-13-2023 [facility] working on the insurance precert.[facility]08-12-2023 NotePhysical Therapy Physical Therapy Treatment Patient Name: Kiara Blanc : 1955 Today's Date: 05/04/2023 Patient Active Problem List Diagnosis Coronary artery disease involving wainwright coronary artery of wainwright heart without angina pectoris Hyperlipidemia, mixed Edema of lower extremity Chronic diastolic heart failure (CMS/HCC) Tobacco dependence NSTEMI (non-ST elevated myocardial infarction) (CMS/HCC) Acute cystitis without hematuria Hypoglycemia Traumatic rhabdomyolysis (CMS/HCC) Acute on chronic systolic (congestive) heart failure (CMS/HCC) Time : 09:12-09:51 05/04/23 1000 PT Last Visit PT Received On 05/04/23 General Subjective Pt per nursing can be seen for P.T. treatment session , upon service writer advisor entering the room pt was supine in [...] across midline (reaching down to floor to garbage pick up worker cones off the floor) Dynamic Standing Balance-Level [...] sitting down. Other Activity Other Activity 2 Evening Or Night Nurse Supervisor left pt in bedside chair with her chair alarm on , service writer advisor informed nursing that pt's chair alarm is not working well when engaged and doing the test to make sure it goes off . Call light within reach of pt Plan PT Discharge Recommendations correction facility placement Goals: Multi-Disciplinary Problems (from Physical [...] without using bedrails 3 (more content not included)...[facility]08-12-2023 Note Still no decision from husbands top 2 SNF choices. Met with at bedside and advised him of 2 accepting SNF's. chose [facility]. Sent updates and asked them to start precert. Provided w/ [facility] info. [facility]08-12-2023 Note Attestation signed by Gaby Sanchez MD [...] fraction. She is to follow-up with the [place] cardiology office in [place]. Gaby Sanchez MD, MPH, [facility], [facility], [facility] Interventional Cardiology Pager Email: [email or web address] Subjective The patient was seen and examined [...] Value Ventricular Rate 83 Atrial Rate 83 MS Interval 178 QRS DURATION 88 QT Interval 414 QTC CALCULATION(BAZETT) 486 P [place] 64 R-[place] -19 T Wave [place] 152 Impression Sinus rhythm with occasional Premature [...] The right ventricle a (more content not included)...[facility]08-12-2023 NoteHospital Medicine Daily Progress Note - 05/04/2023 11:00 AM; Room: [address] [place] [address] Admission: 04/26/2023 1:50 PM; Length of stay: 8 days THE HOSPITALIST TEAM PREFERS TO USE [employer] FOR COMMUNICATION 7AM-7PM. IF I DO NOT RESPOND WITHIN 15 MINUTES, PLEASE PAGE ME/CALL THROUGH THE MANUFACTURING ENGINEERING TECHNICIAN. FROM 7PM-7AM, PLEASE PAGE [phone](COVR) Code Status: Full Code Discharge Destination: intermediate facility Discharge planning: Pending SNF Overview Patient [...] Principal Problem: NSTEMI (non-ST elevated myocardial infarction) ([facility]) Active Problems: Acute cystitis without hematuria Hypoglycemia Traumatic rhabdomyolysis ([facility]) Acute on chronic systolic (congestive) heart failure ([facility]) Assessment and Plan # NSTEMI: # [...] last 7 days Lab Units 05/04/23 0744 05/03/23200305/03/23 1630 05/03/23 1127 05/03/23 0714 05/02/23 2107 POCT GLUCOSE mg/dL 84 87 366* 236* 161* 204* Historical Values: (Includes values prior to this admission) Lab Results Component Value Date TSH 1.24 04/29/2023 HDL 34 04/26/2023 LDL 51 04/26/2023 Lab Results Component Value Date [id number] 512 04/29/2023 Imaging XR hip left 2 [...] 2. Osteoarthritis left hip. (more content not included)...[facility]08-12-2023 NoteOccupational Therapy Occupational Therapy Treatment Note Patient Name: Kiara Blanc Patient Date of : 1955 Today's Date: 05/04/23 Time in: 1034 Time Out: 1108 Total Time: 34 Active Ambulatory Problems Diagnosis Date Noted Coronary artery disease involving wainwright coronary artery of wainwright heart without angina pectoris 07/18/2022 Hyperlipidemia, mixed [...] alarm on. Objective 2 OT Discharge Recommendation Long-Term Facility OT Equipment Recommendations TBD General Pain [...] impaired Sequencing impaired Problem Solving impaired Other Evening Or Night Nurse Supervisor questions further cognitive issues has pt had issues locating the bathroom, the sink and forgot were to put garbage. At [facility] service writer advisor placed multiple grooming items in front of pt and asked her to point to each item as service writer advisor named it. Pt only pointed to the [...] to change brief. Pt required assist to pocket and pulley machine operator hips even after given verbal cues [...] With hands on for safety and with service writer advisor guiding walker as pt was unable to follow instructions To toilet: Minimal Assist , Rolling Walker Comments: With hands on for safety and with service writer advisor guiding walker as pt was unable to follow instructions/locate bathroom Functional Ambulation: Pt ambulated in room with use of walker with hands on for safety and with service writer advisor to guide walker as pt had difficulty locating bathroom and sink even with verbal cues and service writer advisor pointing in the direction. Tone: All extremities [...] Expected End Date E (more content not included)...[facility]08-11-[facility], they need [facility] questionnaire filled out by . [employer] M[employer] (SW) gave 's contact information, [facility] left voicemail. SW informed that they are unable to fully approve or begin precert without questionnaire being completed. [facility] informed SW that they are out of network, but are able to accept if patient has 5 denied facilities. KAREEM informed then that there are not 5 denied facilities. [facility] still reviewing. [facility] requested additional notes from patient's stay, Sw sent via Careport. [facility] requested to reach out to Shani [phone] pertaining to questions over the weekend. OTM will continue to follow.[facility]08-11-2023 Note Hospital Medicine Daily Progress Note - 05/03/2023 12:09 PM; Room: [address] [place] [address] Admission: 04/26/2023 1:50 PM; Length of stay: 7 days THE HOSPITALIST TEAM PREFERS TO USE Fit with Friends FOR COMMUNICATION 7AM-7PM. IF I DO NOT RESPOND WITHIN 15 MINUTES, PLEASE PAGE ME/CALL THROUGH THE MANUFACTURING ENGINEERING TECHNICIAN. FROM 7PM-7AM, PLEASE PAGE [phone](COVR) Code Status: Full Code Discharge Destination: intermediate facility Discharge planning: Cath today Overview Patient [...] Acute cystitis without hematuria Hypoglycemia Traumatic rhabdomyolysis ([facility]) Acute on chronic systolic (congestive) heart failure ([facility]) Assessment and Plan # NSTEMI: # [...] 51 04/26/2023 Lab Results Component Value Date [id number] 512 04/29/2023 Imaging XR hip left 2 [...] No fracture nor dislo (more content not included)...[facility]08-11-2023 NotePhysical Therapy: Refusal of services note Wednesday May 03, 2023 Pt had been cleared medically to receive therapy services . Upon entering the room pt was yelling into her phone and out into hallway that she needed something to drink , when service writer advisor entered the room service writer advisor checked for pt on getting her something to drink with her nurse. Nurisng informed service writer advisor that pt was NPO to prepare for a test today heart cath. When service writer advisor told pt why she could not have any water because of the testing pt became very upset and refused to partipate in therapy services . Evening Or Night Nurse Supervisor wished pt the best of luck on her procedure today and made sure bed was in lowest position, and bed alarm on and that pt had her call light . Attempted time : 10:08-10:13am[facility] Note Attestation signed by Luis Alvarez DO at 05/03/2023 3:17 PM Agree; zyprexa on standby for agitation/irritability/psychosis. Psychiatry Service Progress Note Identifying Data Patient Name: Kiara Blanc MRN / CSN: [id number] Date of / Age: 6 1955 / 68 y.o. / female Encounter Date: 05/03/23 Diagnosis: The primary encounter diagnosis was NSTEMI (non-ST elevated myocardial infarction) (CMS/HCC). A diagnosis of Acute on chronic systolic (congestive) heart failure (CMS/HCC) was also pertinent to this visit. Summary Kiara Blanc is a 68 y.o. female who presented on 04/26/2023 to [facility] from [facility] ([facility]) for acute NSTEMI. Psychiatry was consulted on 04/29/2023 for dementia and delirium. Medical Course: Patient is a 68-year-old female with an unknown psychiatric history and medical history of CAD, HLD, CAD, chronic diastolic HF w/ NYHA Class II, diabetes mellitus presented to [facility] as a direct transfer for cardiology service evaluation for acute NSTEMI. She was admitted initially at [facility]) on 04/25/2023 after she was found [...] over 1000. She was subsequently transferred to [facility] for cardiac evaluation. She was started on [...] 25 mg twice daily PRN by Dr. Quna was administered from 04/28/23. Per previous report, patient has a history of noncompliance to her medications. She has a very difficult poor living situation and EMS has called APS multiple times for this patient in the past. Able to talk to , Mr. Cameron Blanc (ph: [phone]) at the patient's bedside. He called EMS [...] Social work has put in referrals to [address] choice; [facility]' 2nd choice as well as alternate choices had no preference of order: [facility]; [facility]; [facility] and [facility]. Awaiting their review. 05/03/23 - start [...] overnight. Unable to f (more content not included)...[facility]08-10-2023 Note Per RN patient is doing better today and is out of mitts and any form of restraints. Patient has not pulled at any of her leads or lines today. Per RN and FILLER OPERATOR advised them that he did remember now that a physician had given her a dx of dementia at some point. At request of the team they feel patient could be medically ready soon. Referrals made to [address] choice; [facility]' 2nd choice as well as alternate choices had no preference of order: [facility]; [facility]; [facility] and [facility]. Awaiting their review.[facility]08-10-2023 NotePhysical Therapy Physical Therapy Treatment Patient Name: Kiara Blanc : 1955 Today's Date: 05/02/2023 Patient Active Problem List Diagnosis Coronary artery disease involving wainwright coronary artery of wainwright heart without angina pectoris Hyperlipidemia, mixed Edema [...] them clean her up earlier , when service writer advisor entered the room pt was R sidelying and had a soiled brief that was half off her , service writer advisor told pt she had to get cleaned up and could not sit in her BM , pt willing to get cleaned up pt kept telling service writer advisor there are holes in the bathroom and was wondering again where her dog was . Cognition Orientation Level Disoriented to time;Disoriented to situation;Disoriented to place (pts came in at end of treatment session and informed service writer advisor that pt was diagnosed by some doctor he did not remember what doctor or when with dementia. Pt thought her turkey sandwich today tasted and was turkish food) Static Sitting Balance Static Sitting-Balance Support [...] her lunch . Plan PT Discharge Recommendations correction facility placement Goals: Multi-Disciplinary Problems (from Physical [...] a railing 1 Mobility 6 Clicks T-Score 16[facility] Note Physical Therapy Physical Therapy Treatment Patient Name: Kiara Blanc : 1955 Today's Date: 05/02/2023 Patient Active Problem List Diagnosis Coronary artery disease involving wainwright coronary artery of wainwright heart without angina pectoris Hyperlipidemia, mixed Edema of lower extremity Chronic diastolic heart failure (CMS/HCC) Tobacco dependence NSTEMI (non-ST elevated myocardial infarction) ([facility]) Acute cystitis without hematuria Hypoglycemia Traumatic rhabdomyolysis ([facility]) Acute on chronic systolic (congestive) heart failure ([facility]) Time : 14:10-14:40pm 05/02/23 1630 PT Last Visit PT Received On 05/02/23 General Subjective Pt per nursing was more confused today and nursing wanted pt to stay in bed after her therapy session. Nursing also stated that pt would not let them clean her up earlier , when service writer advisor entered the room pt was R sidelying and had a soiled brief that was half off her , service writer advisor told pt she had to get cleaned up and could not sit in her BM , pt willing to get cleaned up pt kept telling service writer advisor there are holes in the bathroom and was wondering again where her dog was . Cognition Orientation Level Disoriented to time;Disoriented to situation;Disoriented to place (pts came in at end of treatment session and informed service writer advisor that pt was diagnosed by some doctor he did not remember what doctor or when with dementia. Pt thought her turkey sandwich today tasted and was turkish food) Static Sitting Balance Static Sitting-Balance Support [...] her lunch . Plan PT Discharge Recommendations correction facility placement Goals: Multi-Disciplinary Problems (from Physical [...] a railing 1 Mobility 6 Clicks T-Score [address] [place], [place] [address]01408-10-2023 Note Hospital Medicine Daily Progress Note - 05/02/2023 12:19 PM; Room: [address] [place] [address] Admission: 04/26/2023 1:50 PM; Length of stay: 6 days THE HOSPITALIST TEAM PREFERS TO USE AFreeze CHAT FOR COMMUNICATION 7AM-7PM. IF I DO NOT RESPOND WITHIN 15 MINUTES, PLEASE PAGE ME/CALL THROUGH THE MANUFACTURING ENGINEERING TECHNICIAN. FROM 7PM-7AM, PLEASE PAGE [phone](COVR) Code Status: Full Code Discharge Destination: intermediate facility Discharge planning: Pending SNF placement Overview [...] Principal Problem: NSTEMI (non-ST elevated myocardial infarction) ([facility]) Active Problems: Acute cystitis without hematuria Hypoglycemia Traumatic rhabdomyolysis ([facility]) Acute on chronic systolic (congestive) heart failure ([facility]) Assessment and Plan # NSTEMI: # [...] 51 04/26/2023 Lab Results Component Value Date [id number] 512 04/29/2023 Imaging XR hip left 2 [...] lesion is id (more content not included)... [facility]08-10-2023 NoteClinical Nutrition Assessment Name: Kiara Blanc Date: [...] days Lab Units 05/02/23 0711 05/02/23 0329 05/01/23 2007 05/01/23 1131 05/01/23 0742 05/01/23 0526 04/30/23 0737 [...] Intake/Output Summary (Last 24 hours) at 05/02/2023 1049 Last data filed at 05/02/2023 0530 Gross [...] meals and improve glucose control [facility] NotePhysical Therapy Cancellation of services for am April Pt per nursing can be seen for physical therapy services , upon service writer advisor entering pt's room pt was supine in the bed eating her breakfast with HOB elevated to 40 degrees . Pt was asking where her dog was service writer advisor explained to pt that she was in a hospital and her dog was at home . Pt said OH she thought her dog was around here referring to the hospital . Pt was also doing gross grasp movements when holding her silverware eating her breakfast , pt stated her low back hurt and pt is willing to work with service writer advisor after she finishes her breakfast. Attempted time: 09:58-10:05[facility] Note Attestation signed by Luis Alvarez DO [...] be placed in a SNF and subsequent custodial post hospital discharge. Regardless of psychiatric diagnosis, [...] Patient Name: Kiara Blanc MRN / CSN: [id number] Date of / Age: 6 1955 / 68 y.o. / female Encounter Date: 05/02/23 Diagnosis: The primary encounter diagnosis was NSTEMI (non-ST elevated myocardial infarction) (CMS/HCC). A diagnosis of Acute on chronic systolic (congestive) heart failure (CMS/HCC) was also pertinent to this visit. Summary Kiara Blanc is a 68 y.o. female who presented on 04/26/2023 to [facility] from [facility] ([facility]) for acute NSTEMI. Psychiatry was consulted on 04/29/2023 for dementia and delirium. Medical Course: Patient is a 68-year-old female with an unknown psychiatric history and medical history of CAD, HLD, CAD, chronic diastolic HF w/ NYHA Class II, diabetes mellitus presented to [facility] as a direct transfer for cardiology service evaluation for acute NSTEMI. She was admitted initially at [facility] ([facility]) on 04/25/2023 after she was found [...] over 1000. She was subsequently transferred to [facility] for cardiac evaluation. She was started on [...] had an episode of agitation. One time Leahl 1 mg was given, and Seroquel 25 mg twice daily PRN by Dr. Quan was administered from 04/28/23. Per previous report, patient has a history of noncompliance to her medications. She has a very difficult poor living situation and EMS has called APS multiple times for this patient in the past. Able to talk to , Mr. Cameron Blanc (ph: [phone]) at the patient's bedside. He called EMS when he found her after coming back from work. He mentions she frequently falls at home and has been hospitalized many times. Per , she refuses to use walker desp (more content not included)...[facility]08-09-2023 Note Attestation signed by Fercho Le MD at 05/01/2023 5:55 PM I personally saw and examined the patient on the same date of service as resident/fellow Tamera Cervantes. I discussed the findings and therapeutic plan with the resident/fellow Tamera Cervantes. I agree with the documentation, except for any edits/updates below. Teaching Physician's Revisions: I have discussed her situation with her primary finisher operator Dr. Gaby Sanchez. We were planning on [...] Value Ventricular Rate 83 Atrial Rate 83 MS Interval 178 QRS DURATION 88 QT Interval 414 QTC CALCULATION(BAZETT) 486 P [place] 64 R-[place] -19 T Wave [place] 152 Impression Sinus rhythm with occasional Premature [...] of measurable tricuspid regurgit (more content not included)...[facility]08-09-2023 Note05/01/23 1620 Admission Assessment Questions Verify insurance with patient Yes ([employer]) Patient is not willing to answer Admission Assessment Questions at this time. Evening Or Night Nurse Supervisor asked if I could call her and she said no . OTM to follow. [facility]08-09-2023 NotePhysical Therapy Physical Therapy Treatment Patient Name: Kiara Blanc : 1955 Today's Date: 05/01/2023 Patient Active Problem List Diagnosis Coronary artery disease involving wainwright coronary artery of wainwright heart without angina pectoris Hyperlipidemia, mixed Edema [...] Cognitive Status Impaired (pt unable to tell service writer advisor what she used to do for a [...] , SAQ 10 reps 1 set . Evening Or Night Nurse Supervisor did a static stretch with pt's heel [...] Transfer Level of Assistance (more content not included)...[facility]08-09-2023 Note05/01/23 1513 Referral Data Referral Source Physician [...] Spouse/significant other Type of Residence/Post Acute Needs correction facility Will patient need Precert for Post Acute needs? Yes Patient's goal for discharge per patient should go to rehab and maybe care home care. Does the patient need discharge transport arranged? Yes Has discharge transport been arranged? No Discharge Referral Plan and Patient Instructions: [employer] [facility] ([facility] involved Adithya San [facility] [phone] ext [phone] or [phone]) SW attempted to meet with patient. She [...] sleeps all day and doesn't do anything. KAREEM spoke with [facility]PS Adithya San [phone] ext [phone]. (that visited with patient yesterday). They report that patients home is a hoarding home. They report it is in deplorable condition with mold. They cannot force the patient to go to rehab or terminal carman care unless someone determines that patient does not have capacity to make her own decisions. They have offered to to assist and pay for clean up of the home. has evaded the offers and continually changes the subject when they offer. would like patient to go to rehab or long-term care. He states he is agreeable to referrals to [facility] or [facility]. If these providers do not have available bed or unable to meet needs he is ok with referrals to: [facility], [facility], [facility], [facility] in [place] or [facility] [place] in no particular order. SW will hold off on referrals today due to patients behaviors and her need for restraints. It does not appear that patient has any terminal carman coverage for custodial if needed. SW referred to [facility] for determination if patient would qualify for Medicaid as secondary. SW to follow.[facility] 05-01-2023 NoteHospital Medicine Daily Progress Note - 05/01/2023 12:22 PM; Room: [facility]/313- Admission: 04/26/2023 1:50 PM; Length of stay: 5 days THE HOSPITALIST TEAM PREFERS TO USE AFreeze CHAT FOR COMMUNICATION 7AM-7PM. IF I DO NOT RESPOND WITHIN 15 MINUTES, PLEASE PAGE ME/CALL THROUGH THE MANUFACTURING ENGINEERING TECHNICIAN. FROM 7PM-7AM, PLEASE PAGE [phone](COVR) Code Status: Full Code Discharge Destination: intermediate facility Discharge planning: Cath today Overview Patient [...] Principal Problem: NSTEMI (non-ST elevated myocardial infarction) ([facility]) Active Problems: Acute cystitis without hematuria Hypoglycemia Traumatic rhabdomyolysis ([facility]) Acute on chronic systolic (congestive) heart failure ([facility]) Assessment and Plan # NSTEMI: # [...] days Lab Units 05/01/23 1131 05/01/23 0742 04/30/23201504/30/23 1635 04/30/23 1120 04/30/23 0737 POCT GLUCOSE mg/dL 174* 211* 202* 379* 150* 156* Historical Values: (Includes values prior to this admission) Lab Results Component Value Date TSH 1.24 04/29/2023 HDL 34 04/26/2023 LDL 51 04/26/2023 Lab Results Component Value Date [id number] 512 04/29/2023 Imaging Complete Echo (TTE) w/wo Imaging Agent, Strain, 3D, Bubble Study 1 1 [facility] Heart Station [address] [place] [address] [phone] (fax) Echocardiogram-[facility] Name: KIARA BLANC Study Date: 04/26/2023 03:54 PM B/P: 129 mmHg/77 mmHg HR: Date of : 1955 Location: [facility] Height: 66 in. Age: 68 year(s) Patient Room: 3131 Weight: 203 lb. Gender: Female Patient Status: InPt BSA: 2.01 m2 Indication: Chest Pain Examination: Echocardiogram (Complete), Lumason Contrast Image Quality: Technically difficult study the patient was uncooperative Patient Consent: Procedure explained to patient Conclusions Left Ventricle: The left ventricle appears normal (more content not included)...[facility]08-09-2023 NoteOccupational Therapy Occupational Therapy Treatment Note Patient Name: Kiara Blanc Patient Date of : 1955 Today's Date: 05/01/23 Time in: 0928 Time Out: 1037 Total Time: 69 Active Ambulatory Problems Diagnosis Date Noted Coronary artery disease involving wainwright coronary artery of wainwright heart without angina pectoris 07/18/2022 Hyperlipidemia, mixed [...] was still looking for her dog after service writer advisor oriented pt. Objective 1 Pt was returned to bed at [facility] due to pt fidgeting in chair and being impulsive. Objective 2 Upon arrival pts bedding was saturated with urine (pt had pulled out Purewick), service writer advisor notes skin was on buttocks was red (nursing notified) pt also c/o pain in L hip throughout session, during rolling activity and when bringing legs into and out of bed. Evening Or Night Nurse Supervisor notified nursing as pt was found down for several days at home. OT Discharge Recommendation Long-Term Facility OT Equipment Recommendations TBD General Pain [...] -up Where Assessed: from chair, None Comments: Evening Or Night Nurse Supervisor set up wash clothe and cued pt to wash areas of body LB Bathing Level of Assistance: Moderate assist Where Assessed: Supine (HOB raised) , from chair, None Comments: Rita care completed by service writer advisor while supine, pt sat in chair to [...] body with minimal assistance (more content not included)...[facility]08-09-2023 Note Attestation signed by Luis Alvarez DO [...] Patient Name: Kiara Blanc MRN / CSN: [id number] Date of / Age: 6 1955 / 68 y.o. / female Encounter Date: 05/01/23 Diagnosis: The primary encounter diagnosis was NSTEMI (non-ST elevated myocardial infarction) ([facility]). A diagnosis of Acute on chronic systolic (congestive) heart failure ([facility]) was also pertinent to this visit. Summary Kiara Blanc is a 68 y.o. female who presented on 04/26/2023 to [facility] from [facility] ([facility]) for acute NSTEMI. Psychiatry was consulted on 04/29/2023 for dementia and delirium. Medical Course: Patient is a 68-year-old female with an unknown psychiatric history and medical history of CAD, HLD, CAD, chronic diastolic HF w/ NYHA Class II, diabetes mellitus presented to [facility] as a direct transfer for cardiology service evaluation for acute NSTEMI. She was admitted initially at [facility] ([facility]) on 04/25/2023 after she was found [...] over 1000. She was subsequently transferred to [facility] for cardiac evaluation. She was started on [...] talk to , Mr. Cameron Blanc (ph: [phone]) at the patient's bedside. He called EMS [...] seen or talked (more content not included)... [facility]08-08-2023 NoteSW given information from RN provided by [facility]. Case Workers Leanna Heck [phone] ext [phone] and Adithya Jaswinder [phone] ext [phone]. They provided a release of information for [facility] to communicate with [facility]PS. Copy of release in paper chart. Due to being after hours social insurance specialist will call in the am. No family at bedside. SW advised patient is not oriented and will need SNF. SW to follow [facility]08-08-2023 NotePhysical Therapy Physical Therapy Treatment Patient Name: Kiara Blanc : 1955 Today's Date: 04/30/2023 Patient Active Problem List Diagnosis Coronary artery disease involving wainwright coronary artery of wainwright heart without angina pectoris Hyperlipidemia, mixed Edema of lower extremity Chronic diastolic heart failure (CMS/HCC) Tobacco dependence NSTEMI (non-ST elevated myocardial infarction) (CMS/HCC) Acute cystitis without hematuria Hypoglycemia Traumatic rhabdomyolysis (CMS/HCC) Time : 11:04-11:45 04/30/23 1556 PT Last Visit PT Received On 04/30/23 General Subjective Pt had been cleared medically by nursing staff to receive therapy services , nursing informed service writer advisor that pt was refusing all services this morning including her am medications. Upon service writer advisor entering the room pt was L sidelying in the bed with her food tray in bed with her , pt has 1 sand mitt on and while nursing in the room pt took off other sand mitt. Evening Or Night Nurse Supervisor able to talk pt into working with [...] bedside chair with chair alarm on , service writer advisor promised to come back a couple of hours to get pt back to bed and see how she was transferring pt in agreeable to do this . Plan Level of assist 1 assist PT Discharge Recommendations correction facility placement Goals: Multi-Disciplinary Problems (from Physical [...] from another person standi (more content not included)...[facility]08-08-2023 NoteHospital Medicine Daily Progress Note - 04/30/2023 1:14 PM; Room: [address] [place] [address] Admission: 04/26/2023 1:50 PM; Length of stay: 4 days THE HOSPITALIST TEAM PREFERS TO USE AFreeze CHAT FOR COMMUNICATION 7AM-7PM. IF I DO NOT RESPOND WITHIN 15 MINUTES, PLEASE PAGE ME/CALL THROUGH THE MANUFACTURING ENGINEERING TECHNICIAN. FROM 7PM-7AM, PLEASE PAGE [phone](COVR) Code Status: Full Code Discharge Destination: intermediate facility Discharge planning: Pending placement Overview Patient [...] Principal Problem: NSTEMI (non-ST elevated myocardial infarction) ([facility]) Active Problems: Acute cystitis without hematuria Hypoglycemia Traumatic rhabdomyolysis ([facility]) Assessment and Plan # NSTEMI: # [...] 51 04/26/2023 Lab Results Component Value Date [id number] 512 04/29/2023 Imaging Complete Echo (TTE) w/wo Imaging Agent, Strain, 3D, Bubble Study 1 1 [facility] [address] [place] [address] [phone] (fax) Echocardiogram-[facility] Name: KIARA BLANC Study Date: 04/26/2023 03:54 PM B/P: 129 mmHg/77 mmHg HR: Date of : 1955 Location: [facility] Height: 66 in. Age: 68 year(s) Patient Room: 3131 Weight: 203 lb. Gender: Female Patient Status: InPt BSA: 2.01 m2 Indication: Chest Pain Examination: Echocardiogram (Complete), Lumason Contrast Image Quality: Technically difficult study the patient was uncooperative Patient Consent: Procedure explained to patient Conclusions Left Ventricle: The left ventricle appe (more content not included)...[facility] 04-30-2023 NotePhysical Therapy Physical Therapy Treatment Patient Name: Kiara Blanc : 1955 Today's Date: 04/30/2023 Patient Active Problem List Diagnosis Coronary artery disease involving wainwright coronary artery of wainwright heart without angina pectoris Hyperlipidemia, mixed Edema of lower extremity Chronic diastolic heart failure (CMS/HCC) Tobacco dependence NSTEMI (non-ST elevated myocardial infarction) ([facility]/HCC) Acute cystitis without hematuria Hypoglycemia Traumatic rhabdomyolysis ([facility]) Time : 12:30-13:00pm 04/30/23 1305 PT Last Visit PT Received On 04/30/23 General Subjective Evening Or Night Nurse Supervisor had come back to put pt back to bed after she had been up for a while, upon service writer advisor entering the room pt was sitting in [...] ,Chair alarm on Plan PT Discharge Recommendations correction facility placement Goals: Multi-Disciplinary Problems (from Physical [...] and limit effects of immobility 04/29/23 05/13/23 --[facility]08-08-2023 Note Attestation signed by Fercho Le MD [...] Value Ventricular Rate 83 Atrial Rate 83 MS Interval 178 QRS DURATION 88 QT Interval 414 QTC CALCULATION(BAZETT) 486 P [place] 64 R-[place] -19 T Wave [place] 152 Impression Sinus rhythm with occasional Premature [...] graft to the OM-2, (more content not included)...[facility] 04-30-2023 NoteSubjective Patient did not sleep well [...] Value Ventricular Rate 83 Atrial Rate 83 MS Interval 178 QRS DURATION 88 QT Interval 414 QTC CALCULATION(BAZETT) 486 P [place] 64 R-[place] -19 T Wave [place] 152 Impression Sinus rhythm with occasional Premature [...] graft. Assessment/Plan NSTEMI (non-ST elevated myocardial infarction) ([facility]) CAD s/p CABG x4 (PARKER-LAD, L radial-OM 1, SVG-OM2, SVG-PDA) in 05/07/2017 HFrEF, 30%, newly reduced, unable to reliably assess NYHA at this point, diabetes mellitus Hypoglycemia Rhabdomyolysis AMS HLD Tobacco use Acute cystitis without hematuria Traumatic rhab (more content not included)...[facility] 04-29-2023 NoteHospital Medicine Daily Progress Note - 04/29/2023 3:04 PM; Room: [facility] Admission: 04/26/2023 1:50 PM; Length of stay: 3 days THE HOSPITALIST TEAM PREFERS TO USE [employer] CHAT FOR COMMUNICATION 7AM-7PM. IF I DO NOT RESPOND WITHIN 15 MINUTES, PLEASE PAGE ME/CALL THROUGH THE MANUFACTURING ENGINEERING TECHNICIAN. FROM 7PM-7AM, PLEASE PAGE [phone](COVR) Code Status: Full Code Discharge Destination: intermediate facility Discharge planning: Pending psych eval Overview [...] Principal Problem: NSTEMI (non-ST elevated myocardial infarction) ([facility]) Active Problems: Acute cystitis without hematuria Hypoglycemia Traumatic rhabdomyolysis ([facility]) Assessment and Plan # NSTEMI: # [...] 51 04/26/2023 Lab Results Component Value Date [id number] 04/29/2023 Imaging Complete Echo (TTE) w/wo Imaging Agent, Strain, 3D, Bubble Study 1 1 [facility] Heart Station [address] [place] [address] [phone] (fax) Echocardiogram-[facility] Name: KIARA BLANC Study Date: 04/26/2023 03:54 PM B/P: 129 mmHg/77 mmHg HR: Date of : 1955 Location: [facility] Height: 66 in. Age: 68 year(s) Patient Room: [facility] Weight: 203 lb. Gender: Female Patient Status: InPt BSA: 2.01 m2 Indication: Chest Pain Examination: Echocardiogram (Complete), Lumason Contrast Image Quality: Technically difficult study the patient was uncooperative Patient Consent: Procedure explained to patient Conclusions Left Ventricle: The left ventricle appears normal in size. Global left ventricular systolic function is sever (more content not included)...[facility]08-07-2023 NotePhysical Therapy Physical Therapy Evaluation Patient Name: Kiara Blanc : 1955 Today's Date: 04/29/2023 Patient is a 68 y/o female who presented to [facility] 04/26/2023 from [facility] for cardiology evaluation. Presented [...] Problem List Diagnosis Coronary artery disease involving wainwright coronary artery of wainwright heart without angina pectoris Hyperlipidemia, mixed Edema [...] is a 68 y/o (more content not included)...[facility]08-07-2023 Note Attestation signed by Fercho Le MD [...] Value Ventricular Rate 83 Atrial Rate 83 MS Interval 178 QRS DURATION 88 QT Interval 414 QTC CALCULATION(BAZETT) 486 P [place] 64 R-[place] -19 T Wave [place] 152 Impression Sinus rhythm with occasional Premature [...] 05/07/2017 PROCEDURES PERFORMED: Coronar (more content not included)...[facility]08-07-2023 NoteOccupational Therapy Occupational Therapy Evaluation Patient Name: Kiara Blanc : 1955 Today's Date: 04/29/2023 Time In: 1051 Time Out: 1106 History of Present Illness Kiara Blanc is an 68 y.o. female who came from [facility] for NSTEMI. [facility] with known history of CAD, HLD, CAD, [...] Problem List Diagnosis Coronary artery disease involving wainwright coronary artery of wainwright heart without angina pectoris Hyperlipidemia, mixed Edema of lower extremity Chronic diastolic heart failure (CMS/HCC) Tobacco dependence NSTEMI (non-ST elevated myocardial infarction) ([facility]) Acute cystitis without hematuria Hypoglycemia Traumatic rhabdomyolysis ([facility]) History reviewed. No pertinent past medical history. History reviewed. No pertinent surgical history. Precautions Precautions Medical Precautions: bed alarm (B hand mitts, bed [place] [facility] [place] Pain Pain Assessment Pain Score: 0 - [...] Level of Function Prior Function Level of [place]: (unknown , based on body habitus likely [...] (Total Assist) Total Score (more content not included)...[facility] 04-28-2023 Note Attestation signed by Fercho Le [...] Value Ventricular Rate 83 Atrial Rate 83 MS Interval 178 QRS DURATION 88 QT Interval 414 QTC CALCULATION(BAZETT) 486 P [place] 64 R-[place] -19 T Wave [place] 152 Impression Sinus rhythm with occasional Premature [...] was administered for better (more content not included)...[facility]08-06-2023 Note Hospital Medicine Daily Progress Note - 04/28/2023 1:24 PM; Room: [address] [place] [address] Admission: 04/26/2023 1:50 PM; Length of stay: 2 days THE HOSPITALIST TEAM PREFERS TO USE AFreeze CHAT FOR COMMUNICATION 7AM-7PM. IF I DO NOT RESPOND WITHIN 15 MINUTES, PLEASE PAGE ME/CALL THROUGH THE MANUFACTURING ENGINEERING TECHNICIAN. FROM 7PM-7AM, PLEASE PAGE [phone](COVR) Code Status: Full Code Discharge Destination: TBD [...] (CMS/HCC) Assessment and Plan # NSTEMI: # Drop [...] 51 04/26/2023 Lab Results Component Value Date [id number] 436 2022 Imaging Complete Echo (TTE) w/wo Imaging Agent, Strain, 3D, Bubble Study 1 1 [facility] Heart Station [address] [place] [address] [phone] (fax) Echocardiogram-[facility] Name: KIARA BLANC Study Date: 04/26/2023 03:54 PM B/P: 129 mmHg/77 mmHg HR: Date of : 1955 Location: [facility] Height: 66 in. Age: 68 year(s) Patient Room: 3131 Weight: 203 lb. Gender: Female Patient Status: InPt BSA: 2.01 m2 Indication: Chest Pain Examination: Echocardiogram (Complete), Lumason Contrast Image Quality: Technically difficult study the patient was uncooperative Patient Consent: Procedure explained to patient Conclusions Left Ventricle: The left ventricle appears normal in size. Global left ventricular sy (more content not included)...[facility]08-05-2023 Note Attestation signed by Fercho Le MD [...] Value Ventricular Rate 83 Atrial Rate 83 MS Interval 178 QRS DURATION 88 QT Interval 414 QTC CALCULATION(BAZETT) 486 P [place] 64 R-[place] -19 T Wave [place] 152 Impression Sinus rhythm with occasional Premature [...] Ventricle: The right ventricle (more content not included)...[facility]08-05-2023 NoteHospital Medicine Daily Progress Note - 04/27/2023 1:18 PM; Room: 3131/3131-01 Admission: 04/26/2023 1:50 PM; Length of stay: 1 days THE HOSPITALIST TEAM PREFERS TO USE AF[employer]ze CHAT FOR COMMUNICATION 7AM-7PM. IF I DO NOT RESPOND WITHIN 15 MINUTES, PLEASE PAGE ME/CALL THROUGH THE MANUFACTURING ENGINEERING TECHNICIAN. FROM 7PM-7AM, PLEASE PAGE [phone](COVR) Code Status: Full Code Discharge Destination: TBD [...] Principal Problem: NSTEMI (non-ST elevated myocardial infarction) ([facility]) Active Problems: Acute cystitis without hematuria Hypoglycemia Traumatic rhabdomyolysis ([facility]) Assessment and Plan # NSTEMI: # [...] 51 04/26/2023 Lab Results Component Value Date [id number] 436 2022 Imaging Complete Echo (TTE) w/wo Imaging Agent, Strain, 3D, Bubble Study 1 1 [facility] Heart Station [address] [place] [address] [phone] (fax) Echocardiogram-[facility] Name: KIARA BLANC Study Date: 04/26/2023 03:54 PM B/P: 129 mmHg/77 mmHg HR: Date of : 1955 Location: [facility] Height: 66 in. Age: 68 year(s) Patient [...] systolic function appears re (more content not included)...[facility] 04-27-2023 NoteEMS had called APS regarding the patient. Attempted to call [facility] to follow up but they are only open Mon-Fri 8am-4:30pm.[facility]08-05-2023 [facility]Output [facility]23 NoteHospital Medicine History and Physical 04/26/2023 2:36 PM THE HOSPITALIST TEAM PREFERS TO USE AF[employer]ze CHAT FOR COMMUNICATION 7AM-7PM. IF I DO NOT RESPOND WITHIN 15 MINUTES, PLEASE PAGE ME/CALL THROUGH THE MANUFACTURING ENGINEERING TECHNICIAN. FROM 7PM-7AM, PLEASE PAGE [phone](COVR) Chief Complaint NSTEMI History of Present Illness Kiara Blanc is an 68 y.o. female who came from [facility] for NSTEMI. Patient was admittied initailly at [facility] with known history of CAD, HLD, CAD, [...] Date Noted NSTEMI (non-ST elevated myocardial infarction) ([facility]) 04/26/2023 Acute cystitis without hematuria 04/26/2023 Hypoglycemia 04/26/2023 Traumatic rhabdomyolysis ([facility]) 04/26/2023 Coronary artery disease involving wainwright coronary artery of wainwright heart without angina pectoris 07/18/2022 Hyperlipidemia, mixed 07/18/2022 Edema of lower extremity 07/18/2022 Chronic diastolic heart failure ([facility]) 07/18/2022 Tobacco dependence 07/18/2022 Assessment and Plan NSTEMI-Type I versus some contribution by type II secondary to rhabdo. Continue to trend troponin curve, continue aspirin, Plavix, heparin drip. Add PPI for prophylaxis. Obtain surface echo. Discussed with electrical systems drafter. No plans for cath today and will [...] appropriate. Please see abov (more content not included)...[facility]06-19-2023 Hospital Discharge instructions* Discharge Instructions* Codi Chase PA-C - 03/11/2023 2:26 PM EDT Your urinalysis looks as though you may have a urinary tract infection. However, your most recent urine culture was negative. I will begin you on a short course of antibiotics and have you follow-up in Sonya Carlo's office. * Attachments The following attachments cannot be sent through Care Everywhere. * UTI (Urinary Tract Infection): Female ([place]) [facility] Includes: Assessments for all patient encounters Findings Encounter Date Anxiety disorder NOS Established Patient with Sobia Short LISWS 03/07/2023 Last Documented On 3 9:52PM ; [facility] Dependence on nicotine in ci garettes - uncomplicated Established Patient with Sobia Short LISWS 03/07/2023 Last Documented On 3 9:52PM ; [facility] Mild recurrent major depression Estab lished Patient with Sobia Short LISWS 03/07/2023 Last Documented On 3 9:52PM ; [facility] [Body mass index [BMI] 33.0- 33.9, adult] assessment of body mass index Medical New Patient with Sonya Posada GROUP CONTRACT ANALYST 03/07/2023 Last Documented On 3 5:01PM ; [facility] Diabetes Risk Test Score was 7.0 score 03/07/2023 Medical New Patient with Sonya Carlo GROUP CONTRACT ANALYST 03/07/2023 Last Documented On 3 5:01PM ; [facility] Work Phone: 1(493) 332-628406-15-2023 Evaluation note Includes: Assessments for all patient encounters Findings Encounter Date Anxiety disorder NOS Established Patient with Sobia Short LISWS 03/07/2023 Last Documented On 3 9:52PM ; [facility] Dependence on nicotine in ci garettes - uncomplicated Established Patient with Sobia Short LISWS 03/07/2023 Last Documented On 3 9:52PM ; [facility] Mild recurrent major depression Estab lished Patient with Sobia Short LISWS 03/07/2023 Last Documented On 3 9:52PM ; [facility] [Body mass index [BMI] 33.0- 33.9, adult] assessment of body mass index Medical New Patient with Sonya Carlo GROUP CONTRACT ANALYST 03/07/2023 Last Documented On 3 5:15AM ; [facility] Colon screening Medical New Patient with Sonya Carlo GROUP CONTRACT ANALYST 03/07/2023 Last Documented On 3 5:15AM ; [facility] Diabetes Risk Test Score was 7.0 score 03/07/2023 Medical New Patient with Sonya Carlo GROUP CONTRACT ANALYST 03/07/2023 Last Documented On 3 5:15AM ; [facility] Screening for Hep C Medical New Patient with Ronnie sie Carlo GROUP CONTRACT ANALYST 03/07/2023 Last Documented On 3 5:15AM ; [facility] Screening for HIV Medical New Patient with Joselyn e Carlo GROUP CONTRACT ANALYST 03/07/2023 Last Documented On 3 5:15AM ; [facility] Work Phone: 1([phone]) 354-810106-15-2023 Evaluation note Includes: Assessments for all patient encounters Findings Encounter Date Anxiety disorder NOS Established Patient with Sobia Short LISWS 03/07/2023 Last Documented On 3 9:52PM ; [facility] Dependence on nicotine in ci garettes - uncomplicated Established Patient with Sobia Short LISWS 03/07/2023 Last Documented On 3 9:52PM ; [facility] Mild recurrent major depression Estab lished Patient with Sobia Short LISWS 03/07/2023 Last Documented On 3 9:52PM ; [facility] [Body mass index [BMI] 33.0- 33.9, adult] assessment of body mass index Medical New Patient with Osnya Carlo GROUP CONTRACT ANALYST 03/07/2023 Last Documented On 3 7:51PM ; [facility] Colon screening Medical New Patient with Sonya Carlo GROUP CONTRACT ANALYST 03/07/2023 Last Documented On 3 7:51PM ; [facility] Diabetes Risk Test Score was 7.0 score 03/07/2023 Medical New Patient with Sonya Carlo GROUP CONTRACT ANALYST 03/07/2023 Last Documented On 3 7:51PM ; [facility] Screening for Hep C Medical New Patient with Ronnie sie Carlo GROUP CONTRACT ANALYST 03/07/2023 Last Documented On 3 7:51PM ; [facility] Screening for HIV Medical New Patient with Joselyn Posada GROUP CONTRACT ANALYST 03/07/2023 Last Documented On 3 7:51PM ; [facility] Work Phone: 1(579) 102-154006-15-2023 History general Narrative - Reported Includes: Medical History in patient's chart Description Last Updated History of tooth extraction 03/07/2023 Last Documented On 3 5:15AM ; [facility] No medical history or no significant his tory 03/07/2023 Last Documented On 3 5:15AM ; [facility] No previous hospitalizations 03/07/2023 Last Documented On 3 5:15AM ; [facility] Recent immunization for flu 03/07/2023 Last Documented On 3 5:15AM ; [facility] Work Phone: 1(908) 493-898406-15-2023 History general Narrative - Reported Includes: Medical History in patient's chart Description Last Updated History of tooth extraction 03/07/2023 Last Documented On 3 7:51PM ; [facility] No medical history or no significant his tory 03/07/2023 Last Documented On 3 7:51PM ; [facility] No previous hospitalizations 03/07/2023 Last Documented On 3 7:51PM ; [facility] Recent immunization for flu 03/07/2023 Last Documented On 3 7:51PM ; [facility] Work Phone: 1(259) 658-208906-15-2023 Progress note* Progress note Date Encounter Last Documented by 03/07/2023 Established Patient Last docu mented on 03/10/2023; 9:52 PM, Sobia MALDONADO; [facility] Active Problems & Conditions - F41.9 - Anxiety Disorder Nos - E13.40 - Diabetes Mellitus Diabetic Peripheral Neuropathy - E11.9 - Diabetes Mellitus Type 2 Without Complication - I10 - Essential Hypertension - F33.0 - Major Depression Recurrent Mild - F17.210 - Nicotine Dependence Cigarettes Uncomplicated Chief Complaint The Chief Complaint is: Patient is in to establish care and [facility] met with patient to follow-up [...] and provider: Counseling/Education P introduced patient to [facility] integrated model of care. P provided supportive and active listening, allowing patient the space to discuss concerns and explored with patient coping strategies and resources for support. Patient declines additional resources at this time but is aware to reach out to the office should she have questions or concerns. P encouraged patient to continue addressing physical health needs and attend appointments as scheduled. Plan Patient to take medications as prescribed and contact the office with any questions or concerns. Patient to implement coping skills and positive supports as discussed. P to follow-up with patient at next visit [...] + 0 pt : Not at all. [facility]06-15-2023 Progress note* Progress note Date Encounter Last Documented by 03/07/2023 Medical New Patient Last jose cruz burt on 03/12/2023; 5:15 AM, Sonya Posada CNP; [facility] Active Problems & Conditions - F41.9 - Anxiety Disorder Nos - E13.40 - Diabetes Mellitus Diabetic Peripheral Neuropathy - E11.9 - Diabetes Mellitus Type 2 Without Complication - I10 - Essential Hypertension - F33.0 - Major Depression Recurrent Mild - F17.210 - Nicotine Dependence Cigarettes Uncomplicated Chief Complaint The Chief Complaint is: [facility] was seeing at [facility] diabetic. Referred Here Not referred by urgent care clinic and not the emergency room. No prior encounters. - Data to be reviewed: no clinical lab tests History of Present Illness Kiara Blanc is a 67 year old female. - Allergy list reviewed - Reviewed Medications Patient presents to [facility] Patient goes to an color consultant and finisher operator Patient has had multiple falls and just [...] BP-Sitting L115/55 mmHg BP Cuff SizeRegular Pulse Rate-Civazhu11 bpm Temp-Vaobnpht06.5 F Yhynyl44 in Ecpjvz896 lbs Body Mass Index33.4 kg/m2 Body Surface Area2 m2 Oxygen Yztyycsvfc69 % Tests Urinalysis Was Performed: Routine urinalysis without microscopic examination abnormal Protein ++100. Glucose Negative, Bilirubin Negative, Urobilinogen 0.2, Nitrite Negative, and Ketones 0 Negative. Abnormal Leukocyte Estrase +++Large, Blood Trace Hemolyzed, Specific Lagrange 1.025, and pH 7.0. Urine clarity Turbid [...] Present, PCP Not Present, OXY Not Present, [id number] Not Present, MTD Not Present, MET Not [...] Dysuria Outside Labs/Microbiology: Urine Culture & Sensitivity ([id number]) EndCited StartCited- Type 2 diabetes mellitus without [...] 60 years or older (3 points) [Pre-DM]. [facility]06-15-2023 Progress note* Progress note Date Encounter Last Documented by 03/07/2023 Medical New Patient Last jose cruz burt on 03/14/2023; 7:51 PM, Sonya Posada CNP; [facility] Active Problems & Conditions - F41.9 - Anxiety Disorder Nos - E13.40 - Diabetes Mellitus Diabetic Peripheral Neuropathy - E11.9 - Diabetes Mellitus Type 2 Without Complication - I10 - Essential Hypertension - F33.0 - Major Depression Recurrent Mild - F17.210 - Nicotine Dependence Cigarettes Uncomplicated Chief Complaint The Chief Complaint is: [facility] was seeing at [facility] diabetic. Referred Here Not referred by urgent care clinic and not the emergency room. No prior encounters. - Data to be reviewed: no clinical lab tests History of Present Illness Kiara Blanc is a 67 year old female. 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 Glucose Negative, Bilirubin Negative, Urobilinogen 0.2, Nitrite Negative, and Ketones 0 Negative. Abnormal Leukocyte Estrase +++Large, Blood Trace Hemolyzed, Specific [place] 1.025, and pH 7.0. Urine clarity Turbid [...] Present, PCP Not Present, OXY Not Present, [id number] Not Present, MTD Not Present, MET Not [...] Dysuria Outside Labs/Microbiology: Urine Culture & Sensitivity ([id number]) EndCited StartCited- Type 2 diabetes mellitus without [...] older (3 points) [Pre-DM]. [id number] discussion with patient regarding smoking cessation, she denies need for prescription for Wellbutrin, she refuses Chantix related to she already has nightmares, and she does not want nicotine gum because of dentures. States she is going to get nicotine patches that she is can order from the TV for free. [facility]10-26-2022 NoteContinued goal-directed medical therapy, aspirin, statin, Plavix, metoprolol and lisinopril No concerning symptoms currently Continue risk factor modifications including heart healthy diet, regular exercise as tolerated and she is trying to quit smoking.[facility]10-26-2022 NoteContinue statinUnBerger Hospital 07-18-2022 NoteContinues to take lasix daily [...] clinic in 6 months or earlier if neededUnBerger Hospital10-26-2022 NotePatient here for follow up LE edema per Mariam Sahu CNP. She had BMP drawn today. Review of Systems Cardiovascular: Positive for leg swelling. All other systems reviewed and are negative.[facility] 07-18-2022 NoteSays her LE edema is much better now. Denies chest pain and SOB. Review of Systems Cardiovascular: Positive for leg swelling.[facility] 07-18-2022 NoteHPI: Kiara Blanc is a 67 [...] on exertion or at rest or orthopnea. [facility] II-without exacerbation currently patient is euvolemic Return to clinic in 6 months or earlier if needed Hyperlipidemia, mixed Continue statin Coronary artery disease involving wainwright coronary artery of wainwright heart without angina pectoris Continued goal-directed medical [...] can order from the TV for free. [facility]07-03-2022 NoteMR#: [id number] [facility] Pt. Name: Kiara Blanc Admitted: 03/16/2022 Discharged: [...] P/Yris Quan MD Date Trans: 03/25/2022 05:24 P/mp [id number] cc: Peter Santos M.D. [address] [address] Reinaldo Marlow M.D. [address] [place], [place] [address] Diagnosis Acute cystitis without hematuria- Primary Acute cystitis documented in this encounter [facility] noteNo assessment information available [facility] Work Phone: History general Narrative - Reported Includes: Medical History in patient's chart No [facility] Work Phone: History of Present illness Narrative History of Present Illness not supported for this document type No [facility] of [facility]ness [facility] Work Phone: Instructions Includes: Instructions for all patient encounters Education and Decision Aids were provided during visit for: [facility] introduced patient to [facility] integrated model of care. ~[facility] provided supportive and active listening, allowing patient the space to discuss concerns and explored with patient coping strategies and resources for support. Patient declines additional resources at this time but is aware to reach out to the office should she have questions or concerns. ~[facility] encouraged patient to continue addressing physical health needs and attend appointments as scheduled Last Documented On 3 9:52PM ; [facility] Discussed nutritional needs teach healthy choices including fruits and vegetables Last Documented On 3 3:42PM ; [facility] Patient education about a pr oper diet Last Documented On 3 3:42PM ; [facility] Discussed concerns about exe rcise : promote physical activity Last Documented On 3 3:42PM ; [facility] Referred Patient to a Diabet es Self-Management Program Last Documented On 3 4:08PM ; [facility] Work Phone: Instructions Includes: Instructions for all patient encounters Education and Decision Aids were provided during visit for: P introduced patient to [facility] integrated model of care. ~[facility] provided supportive and active listening, allowing patient the space to discuss concerns and explored with patient coping strategies and resources for support. Patient declines additional resources at this time but is aware to reach out to the office should she have questions or concerns. ~[facility] encouraged patient to continue addressing physical health needs and attend appointments as scheduled Last Documented On 3 9:52PM ; [facility] Discussed nutritional needs teach healthy choices including fruits and vegetables Last Documented On 3 3:42PM ; [facility] Patient education about a pr oper diet Last Documented On 3 3:42PM ; [facility] Discussed concerns about exe rcise : promote physical activity ~ ~Get labs done and follow up in two weeks Last Documented On 3 5:15AM ; [facility] Referred Patient to a Diabet es Self-Management Program Last Documented On 3 4:08PM ; [facility] Work Phone: Instructions Includes: Instructions for all patient encounters Education and Decision Aids were provided during visit for: [facility] introduced patient to [facility] integrated model of care. ~[facility] provided supportive and active listening, allowing patient the space to discuss concerns and explored with patient coping strategies and resources for support. Patient declines additional resources at this time but is aware to reach out to the office should she have questions or concerns. ~P encouraged patient to continue addressing physical health needs and attend appointments as scheduled Last Documented On 3 9:52PM ; [facility] Discussed nutritional needs teach healthy choices including fruits and vegetables Last Documented On 3 3:42PM ; [facility] Patient education about a pr oper diet Last Documented On 3 3:42PM ; [facility] Discussed concerns about exe rcise : promote physical activity ~ ~Get labs done and follow up in two weeks Last Documented On 3 5:15AM ; [facility] Referred Patient to a Diabet es Self-Management Program Last Documented On 3 4:08PM ; [facility] Work Phone: Patient problem outcome Narrative Includes: Evaluations & Outcomes for active Goals No [facility] Work [facility]: Reason for referral (narrative)No [facility] Work Phone: Review of systems Narrative - Reported Review of Systems not supported for this document type No [facility] Work Phone: Summary Purpose Family History No Family History Records Found Description Last Updated Maternal history of oncologic disorder 0 03/07/2023 Last Documented On 3 5:15AM ; [facility] Maternal history of type 2 diabetes luz itus 03/07/2023 Paternal history of type 2 diabetes luz itus 03/07/2023 Description Last Updated Maternal history of oncologic disorder 0 03/07/2023 Last Documented On 3 7:51PM ; [facility] Maternal history of type 2 diabetes luz itus 03/07/2023 Paternal history of type 2 diabetes luz itus 03/07/2023 Description Last Updated Maternal history of oncologic disorder 0 03/07/2023 Last Documented On 3 7:51PM ; [facility] Maternal history of type 2 diabetes luz itus 03/07/2023 Paternal history of type 2 diabetes luz itus 03/07/2023 Relationship Condition Age at Onset Recorded Date/T yenni father Diabetes mellitus Unknown Unknown Type 2 diabetes mellitus Unknown grandparent Diabetes mellitus Unknown Heart disease Unknown Not Specified Hypertension Unknown Diabetes mellitus Unknown Malignant neoplasm of breast Unknown Malignant neoplasm Unknown Advance Directives No Advanced Directives Records Found Advance Directive Response Recorded Date/ Time Advance Directives No May 1:58pm Latest Code Status on File Code Status Date Activated Date Inactivated Comments Full Code 03/25/2017 8:09 PM 03/27/2017 6:06 PM Directive Pat Aware Third Republican Effective Date Reviewed Sta tus Declined to Provide Advance Directive Yes 07/18/2023 Current and Verified Note: Patient refuse d advanced directives at this time. Advance Directive Response Recorded Date/ Time Advance Directives No May 12:58pm Chief Complaint and Reason for Visit Chief Complaint r91.8 Chief Complaint Unknown Assessments No Assessments Information Available Physical Exam [...] section and content) DATE CREATED AUTHOR 03/19/2018 [facility] DATE CREATED AUTHOR AUTHOR'S ORGANIZ ATION 02/17/2022 [facility] dical Specialist DATE CREATED AUTHOR AUTHOR'S ORGANIZ ATION 04/04/2022 [facility] DATE CREATED AUTHOR AUTHOR'S ORGANIZ ATION 01/14/2023 [facility] DATE CREATED AUTHOR AUTHOR'S ORGANIZ ATION 01/23/2023 [facility] DATE CREATED AUTHOR AUTHOR'S ORGANIZ ATION 03/09/2023 [facility] DATE CREATED AUTHOR AUTHOR'S ORGANIZ ATION 06/14/2023 [facility] DATE CREATED AUTHOR AUTHOR'S ORGANIZ ATION 11/09/2023 [facility] Reason for Visit (unrecogniz ed section and [...] Care Teams (unrecognized sec tion and content) Compressor Engineer Relationship Specialty Start Date End Date Sonya Posada, SALES FORCE DEVELOPER - [employer]AD[employer] DEVELOPER [address] [place] [address] PCP - General 03/11/23 Team Status: Inactive Member Role Status Dates JELANI Recinos-BC Attending Provider Active Team Status: Inactive Member Role Status Dates NON STAFF Attending Provider Active Start: [email or web address] 2023 End: November 06, 2023 Goals (unrecognized section and content) Goals may [...] BE BASED ON THE PRIMARY CLINICAL RECORDS. [employer] [facility]. provides no warranty or guarantee of the accuracy or completeness of information in this document.
== END 2023-11-29 10:42 | disposition home or self-care (01) ==
LOC: WC 10:42
PROVIDERS: Visit Provider Podiatrist Foot & Ankle Surgery
DX: T87.89 Other complications of amputation stump (principal)
CPT/HCPCS: 29445

== ENCOUNTER 2023-12-06 11:17 | Outpatient (OUT) | payer MEDICARE, SELFPAY | END 2023-12-06 11:18 | disposition home or self-care (01) | LOC: WC 11:17 | PROVIDERS: Visit Provider Podiatrist Foot & Ankle Surgery | DX: T87.89 Other complications of amputation stump (principal) | CPT/HCPCS: G0463 ==

== ENCOUNTER 2023-12-27 11:52 | Outpatient (OUT) | payer MEDICARE, SELFPAY | END 2023-12-27 11:53 | disposition home or self-care (01) | LOC: WC 11:52 | PROVIDERS: Visit Provider Podiatrist Foot & Ankle Surgery | DX: T87.89 Other complications of amputation stump (principal) | CPT/HCPCS: G0463 ==

== ENCOUNTER 2024-02-24 16:18 | Outpatient (OUT) | payer MEDICARE, SELFPAY | END 2024-02-24 16:19 | disposition home or self-care (01) | LOC: WC 16:18 | PROVIDERS: Visit Provider Physician Assistant | DX: Z89.421 Acquired absence of other right toe(s) (principal) | CPT/HCPCS: G0463 ==

== ENCOUNTER 2024-03-07 10:52 | Emergency (ER) | payer MEDICARE, SELFPAY ==
[2024-03-07] VITALS (31 sets, daily range): BP systolic 136–161; BP diastolic 71–101; PULSE 64–118; TEMP 37–37.1; O2SAT 90–98; BMI 37.0
--- NOTE | 2024-03-07 11:02 | ECG_ITS ---
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
--- OUTSIDE RECORDS SUMMARY | 2024-03-07 11:03 | XMS_ITS ---
Patient Summarization (C-CDA 2.1 CCD) Created on: March 07, 2024 Kiara Blanc : 1955 Sex: Female Author Organization Sample organization Care Team Providers Care Drapery Examiner Name Role Phone CAMERON LAURENT Unavailable Unavailable CAMERON LAURENT Unavailable Unavailable PETER SANTOS Unavailable Unavailable Peter Santos Primary Care Provider UnavailLatasha Rosario Attending Provider Unavailable YRIS QUAN Attending Unavailable PETER SANTOS Primary Care Unavailable REINALDO MARLOW Referring Unavailable RAYAFABIAN Jolly Admitting Unavailable ADELINAFANY Gavin Admitting Unavailable PETE SAHUISSA Attending Unavailable DR PETER SANTOS Primary Care [...] Consulting Unavailable ROWAN ., YAMILKA Consulting Unavailable ZITEE, DR MITZY Tan Consulting Unavailable ESCOBAR .CECILIA Attending Unavailable ESCOBAR ., CECILIA Admitting Unavailable DR PETER SANTOS Primary [...] GARSIA Consulting Unavailable ELIAN GAMEZ Consulting Unavailable NEFLILLIE COLLINS Consulting Unavailable DERERNESTO, YAZAN Consulting Unavailable ESCOBAR ., CECILIA Attending Unavailable ESCOBAR ., CECILIA Admitting Unavailable JUDE, DR SHAH Primary Care Unavailable ESCOBAR ., CECILIA Consulting Unavailable ERNIE NIELSEN Consulting Unavailable COATJOSEPH Gavin Consulting Unavailable SANTOS, DR SHAH Primary Care Unavailable HEMMER, DR JAROCHO Fagan Admitting Unavailable HEMMER, DR JAROCHO Fagan Attending Unavailable FANY SAHU Consulting Unavailable JUDE, DR SHAH Primary Care Unavailable FANY SAHU Attending Unavailable FANY SAHU Admitting Unavailable SANTOS, DR SHAH Primary Care Unavailable REINALDO MARLOW Consulting Unavailable FAWWAD, SANCHEZ H Admitting Unavailable FAWSHAIKH CONNOLLY H Attending Unavailable MAURI, FABIOLA Consulting Unavailable ERNIE NIELSEN Consulting Unavailable FAWWAShanae, SANCHEZ H Consulting Unavailable NADEREDominick, DR IGGY Haji Consulting Unavailable NADERER, DR IGGY Haji Attending Unavailable NADEREDominick, DR IGGY Haji Admitting Unavailable JUDE, DR SHAH Primary Care Unavailable LEDEZMA, PATRICIA Consulting Unavailable DIAB ., JUAN ALBERTO Consulting Unavailable Sonya Posada CNP Attending Unavailable SONYA POSADA Referring Unavailable PETER SANTOS Primary Care Unavailable oSnya Posada CNP Primary Care Provider [phone] Carol METAL STUD FRAMER - PROGRAM DIRECTOR/MUSIC DIRECTORSonya Primary Care Provider JELANI Patel-GEORGINA Dailey Attending Provider [phone] FANY SAHU Attending Unavailable CHANDNI GREEN Referring Unavailable IRINEO, DANIEL HALL Admitting Unavailab le WALIANI, YRIS Attending Unavailable KERA EH Attending Unavailable IRINEO, DANIEL HALL Referring Unavailab le GANGWANI, MANDARNELL HALL Referring Unavailab le GANGWANI, MANDARNELL HALL Referring Unavailab le HORANI, YRIS Referring [...] / HYDROcodone Drug Allergy 3 Nausea [facility] Repository (2 sources) Adhesive agent; Translations: [ADHESIVE] Propensity to adverse reactions (disorder) 7 [facility] Repository (1 source) PLASTIC BANDAGE TAMARA Drug allergy (disorder) 9 [facility] Repository (2 sources) Adhesive bandage Drug allergy (disorder) 3 [facility] Repository (4 sources) Adhesive Tape Allergy to substance 3 [facility] (4 sources) Bandaids Allergy to substance 3 [facility] (2 sources) Acetaminophen / HYDROcodone; Translations: [HYDROCODONE-ACET AMINOPHEN] Drug Allergy 7 Nausea And [facility]om[facility] (1 source) HYDROcodone; Translations: [HYDROCODONE BITARTRATE] Drug Allergy 1 [facility] Repository NEGATED: Highlighted row has been ruled out! (1 source) Other Propensity to adverse reactions 7 [employer] Encounters Encounter Date Encounter Type Care Provider Facility Start: 11-06-2023 End: 11-06-2023 ambulatory NON STAFF Facility:[facility] Start: 11-06-2023 End: 11-06-2023 ambulatory [facility] Work Phone: Start: 11-06-2023 End: 11-06-2023 Departed Referred [facility] Start: 06-12-2023 End: 06-12-2023 ambulatory [facility] [place] Start: 05-14-2023 End: 05-14-2023 ambulatory PHYSICIAN NO FAMILY Facility:[facility] Start: 05-14-2023 End: 05-14-2023 ambulatory WRAP TURNER-BC Angy Patel Work Phone: [facility] Work Phone: Start: 05-14-2023 End: 05-14-2023 Departed Referred WRAP TURNER-BC Angy Patel Work Phone: [facility] [place] Work Phone: Start: 05-04-2023 Evaluation and management of inpatient [facility] Start: 05-01-2023 Evaluation and management of inpatient YRIS [facility] Start: 04-26-2023 End: 05-06-2023 Evaluation and management of inpatient CHANDNI GREEN [facility] Start: 03-11-2023 End: 03-11-2023 Emergency department patient visit Sonya Posada METAL STUD FRAMER - PROGRAM DIRECTOR/MUSIC DIRECTOR Work Phone: [facility] Comment on above: Acute cystitis witho ut hematuria (Primary Dx) Start: 03-07-2023 End: 03-07-2023 FQHC visit, estab pt Sobia MALDONADO Work Phone: [facility] Work Phone: Start: 03-07-2023 End: 03-07-2023 FQHC visit new patient Sonya Posada ENTRY SPECIALIST Work Phone: [facility] Work Phone: Start: 03-07-2023 End: 07-18-2023 FQHC visit, estab pt Soco Alcantar ENTRY SPECIALIST Work Phone: [facility] Work Phone: Start: 03-07-2023 End: 03-08-2023 ambulatory SONYA POSADA [facility] Start: 01-22-2023 ambulatory Sonya Posada CNP [facility] Start: 01-10-2023 End: 01-10-[address] MITZY HURD Facility:[facility] Start: 01-06-2023 End: 01-06-2023 ambulatory YAZAN FABIAN Facility:[facility] Start: 01-01-2023 End: 01-02-[address] IGGY FRASER Facility:[facility] Start: 11-08-2022 End: 11-13-2022 ambulatory YAMILKA DONAHUE . Facility:[facility] Start: 08-23-2022 End: 08-23-[address] FANY ROBERT . Facility:[facility] Start: 07-31-2022 End: 07-31-2022 ambulatory REINALDO RICHI Facility:[facility] Start: 07-18-2022 End: 07-19-2022 ambulatory FANY SAHU Facility:[facility] Start: 05-25-[address] PETER SANTOS Facilit y:[facility] Start: 05-13-2022 End: 05-14-[address] PETER SANTOS Facility:[facility] Start: 03-16-2022 End: 03-25-2022 Evaluation and management of inpatient YRIS QUAN Facility:[facility] Start: 03-16-2022 End: 03-16-[address] PETER SANTOS Facility:[facility] Start: 02-23-2022 ambulatory FANY SAHU Facility:[facility] 1 Start: 02-16-2022 End: 02-17-[address] PETER SANTOS Facility:[facility] Start: 02-01-2022 End: 02-01-[address] PETER SANTOS Facility:[facility] Start: 07-07-2019 End: 07-07-2019 Patient encounter procedure Peter Santos -CT Scan [facility] [place] Start: 03-25-2017 End: 03-27-2017 Evaluation and management of inpatient [facility] Medical Equipment Procedure Code Equipment Code Equipment Origin al Text Equipment Identifier Dates ReliOn Pen Needl es 31G X 6 MM Miscellaneous [id number] Start: 06-25-2023 Goals Date Patient Goal Desired Activity /State Immunizations Immunization Date Immunization Notes Care Provider Valeria winston 01-02-2023 pneumococcal polysaccharide vaccine, 23 valent Sonya Posada ENTRY SPECIALIST Work Phone: [facility] 09-05-2021 1st Dose MODERNA COV ID-19 Vaccine Sonya Carlo ENTRY SPECIALIST Work Phone: [facility] 08-08-2021 diphtheria, tetanus toxoids and pertussis vaccine Sonya Carlo ENTRY SPECIALIST Work Phone: [facility] 08-07-2021 influenza, high dose seasonal, preservative-free Sonya Posada ENTRY SPECIALIST Work Phone: [facility] 01-01-2021 1st Dose MODERNA COV ID-19 Vaccine Sonya Srmarlen JURADO Work Phone: [facility] 12-05-2020 1st Dose MODERNA COV ID-19 Vaccine Sonya Srmarlen JURADO Work Phone: [facility] 08-30-2020 Seasonal, quadrivale nt, recombinant, injectable influenza vaccine, preservative free Sonya Posada CNP Work Phone: [facility] 08-28-2019 influenza, injectabl e, quadrivalent, contains preservative Sonya Posada CNP Work Phone: [facility] 09-20-2016 influenza, seasonal, injectable, preservative free Sonya Carlo JURADO Work Phone: [facility] Medications Current Medications Medication Drug Class(es) Dates [...] Tablet Delayed Release 07/18/2023 Provider: Soco Alcantar ENTRY SPECIALIST take 1 tablet by mouth once dionicio y aspirin 325 MG tablet Take 325 mg by mouth daily 0 Active atorvastatin 40 mg oral tablet (6 sources) HMG-CoA Reductase Inhibitor Start: 07-18-2023 End: 07-18-2023 Atorvastatin Calcium 40 MG Oral Tablet 07/18/2023 Provider: Soco Alcatnar CNP Start: 02-11-2023 End: 07-18-2023 Atorvastatin Calcium [...] MG Oral Tablet 02/11/2023 - 07/18/2023 Provider: Payers Date Payer Category Payer Self-pay [id number] 2014 Medicare [id number] 2014 Medicare [id number] Self-pay [id number] 1959 Unknown [id number] 1955 Unknown [id number] 2.16.8 [id number] 1955 Unknown [id number] 2.16.84 [id number] 1955 Unknown [id number] 2.16.84 [id number] 1955 Unknown [id number] 2.16.84 0.1.456567.3.579.2.593 1955 Unknown [id number] 2.16.84 0.1.160421.3.579.2.593 1955 Unknown [id number] 2.16.84 0.1.979071.3.579.2.593 1955 Unknown [id number] 2.16.84 0.1.096742.3.579.2.593 1955 Unknown [id number] 2.16.84 0.1.438639.3.579.2.593 1955 Unknown [id number] 2.16.84 0.1.719437.3.579.2.593 1955 Unknown [id number] 2.16.84 0.1.012420.3.579.2.593 1955 Unknown [id number] 2.16.84 0.1.506077.3.579.2.593 1955 Unknown [id number] 2.16.84 0.1.524374.3.579.2.593 1955 Unknown [id number] 2.16.84 0.1.546569.3.579.2.593 1955 Unknown [id number] 2.16.84 0.1.328614.3.579.2.593 1955 Unknown [id number] 2.16. [id number] Medicare Medicare [id number] Private Health Insurance [facility] [id number] Unknown [id number] 2.16.8 [id number] Unknown [id number] 2.16.8 [id number] Plan of Treatment Date Care Activity Detail Author Start: 03-11-2024 GFR test (Diabetes, CKD 3-4, OR last GFR 15-59) GFR test (Diabetes, CKD 3-4, OR last GFR 15-59) [employer] Start: 08-19-2023 FQHC visit, estab pt Medical E stablished Patient [facility] Work Phone: Start: 07-18-2023 End: 07-18-2023 Patient education based on identified need [facility] Start: 04-06-2023 Urine Culture & Sensitivity (83074) [facility] Start: 03-21-2023 FQHC visit, estab pt Medical E stablished Patient [facility] Work Phone: Start: 03-08-2023 Annual Wellness Visi t (AWV) Annual Wellness Visit (AWV) [facility] [employer] Start: 03-07-2023 End: 03-07-2023 Patient education based on identified need [facility] Start: 03-07-2023 CBC W Auto Different ial panel - Blood [facility] Start: 03-07-2023 Lipid 1996 panel - S elizabeth or Plasma LIPID PROFILE [facility] Start: 10-31-2021 COVID-19 Vaccine (5 - Booster for Moderna series) COVID-19 Vaccine (5 - Booster for Moderna series) [facility] Start: 03-25-2018 Hemoglobin A1c measurement A1C test (Diabetic or Prediabetic) [facility] Start: 2011 Screening for osteoporosis DEXA (modify frequency per FRAX score) [facility] Start: 2006 Screening for malign ant neoplasm of breast Breast cancer screen [facility] Start: 2006 Shingles vaccine (1 of 2) Shingles vaccine (1 of 2) [facility] Start: 2001 Screening for malign ant neoplasm of colon [facility] Start: 1975 DTaP/Tdap/Td vaccine (1 - Tdap) DTaP/Tdap/Td vaccine (1 - Tdap) [facility] Start: 1974 Glaucoma screening Diabetic retinal exam [facility] Start: 1974 Hepatitis C screening Hepatitis C sc reen [facility] Start: 1974 Urine screening for protein Diabetic Alb to Cr ratio (uACR) test [facility] Start: 1968 Depression Monitoring Depression Mon itoring [facility] [employer] Start: 1966 Diabetic foot examination Diabetic foot exam [facility] [employer] Start: 1966 Lipid panel Lipids [place] [employer] End: 03-11-2023 Culture, Urine [facility] [employer] Work Phone: Comment on above: Once for 1 Occurrenc es starting 03/11/2023 until 03/11/2023 Problems Active Problems Problem Classification Problem Date [...] disease (5 sources) Atherosclerotic heart disease of [place] coronary artery without angina pectoris; Translations: [Coronary arteriosclerosis] Onset: 07-18-2022 Chronic Diabetes mellitus with complications (19 sources) Type 2 diabetes mellitus with hypoglycemia without coma; Translations: [Type 2 diabetes mellitus with hyperglycemia] Onset: 02-02-2022 Chronic Diabetes mellitus without complication (8 sources) Type 2 diabetes mellitus without complications; Translations: [Type 1 diabetes mellitus without complications] Onset: 06-02-2022 06-15-2023 Chronic Disorders of lipid metabolism (2 sources) [...] Onset: 11-15-2022 Chronic Other aftercare (1 source) [facility] (current) use of insulin; Translations: [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 USE OF INSULIN] Onset: 01-14-2023 Episodic Other aftercare (1 source) 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; Translations: [OTH NURSING HOME CURRENT DRUG THERAPY] Onset: 01-14-2023 Episodic Other aftercare (1 source) [facility] (current) use of aspirin; Translations: [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 USE OF ASPIRIN] Onset: 11-15-2022 Episodic Other aftercare (1 source) [facility] (current) use of oral hypoglycemic drugs; Translations: [NURSING HOME USE ORAL HYPOGLYCEMIC DX] Onset: 11-15-2022 Episodic [...] Translations: [LOW BACK PAIN, UNSPECIFIED] Onset: 01-06-2023 Procedures Date Procedure Procedure Detail Performing Clinician Start: 07-18-2023 Current tobacco smoker Soco Alcantar ADRIEN Work Phone: Start: 07-18-2023 Eye img valid match dx 7 stnd fld w/evc rtnopthy Soco Alcantar ENTRY SPECIALIST Work Phone: Start: 07-18-2023 Foot examination performed Soco Ortiz JURADO Work Phone: Start: 07-18-2023 Hemoglobin glycosylated a1c Soco Alcantar ENTRY SPECIALIST Work Phone: Start: 07-18-2023 Most recent diastoli c blood pressure < 80 mm hg Soco Alcantar ENTRY SPECIALIST Work Phone: Start: 07-18-2023 Most recent hg a1c>e qual to 8.0%& Soco Alcantar ENTRY SPECIALIST Work Phone: Start: 07-18-2023 Most recent systolic blood pressure <130 mm hg Soco Alcantar ENTRY SPECIALIST Work Phone: Start: 07-18-2023 Pt scrnd tobacco use rcvd tobacco cessation talk Soco Alcantar ADRIEN Work Phone: Start: 07-18-2023 Remote imaging mgt r etinal disease w/i&r uni/b Soco Alcantar ADRIEN Work Phone: Start: 03-11-2023 Basic metabolic pane l calcium total Codi Chase PA-C Work Phone: Start: 03-11-2023 Urinalysis microscopic only Codi Chase PA-C Work Phone: Start: 03-11-2023 Urnls dip stick/tabl et rgnt auto w/o microscopy Codi Chase PA-C Work Phone: Start: 03-07-2023 Creatinine other source Sonya Posada CNP Work Phone: Start: 03-07-2023 Current tobacco smoker Sonya Posada CNP Work Phone: Start: 03-07-2023 Drug test prsmv read direct optical obs pr date Sonya Posada CNP Work Phone: Start: 03-07-2023 Hysterectomy Sonya gee CNP Work Phone: Start: 03-07-2023 Knee Replacement Left C sho Posada CNP Work Phone: Start: 03-07-2023 Knee Replacement Right Sonya Posada CNP Work Phone: Start: 03-07-2023 Psychotherapy w/lasha ent 30 minutes Sobia RAYMUNDOWS Work Phone: Start: 03-07-2023 Pt scrnd tobacco use rcvd tobacco cessation talk Sonya Posada CNP Work Phone: Start: 03-07-2023 Surgical procedure Hayley Posada CNP Work Phone: Start: 03-07-2023 Urine albumin quantitative Sonya Posada CNP Work Phone: Start: 03-07-2023 Urnls dip stick/tabl et rgnt non-auto w/o micrscp Sonya Posada CNP Work Phone: Start: 07-07-2019 CT chest wo con Peter Santos Start: 03-27-2017 DISCHARGE PATIENT CAMERON MEHRAN Start: 03-27-2017 POCT GLUCOSE CAMERON FELT ON Start: 03-27-2017 GLUCOSE, WHOLE BLOOD JON LAURENT Start: 03-27-2017 POCT GLUCOSE CAMERON FELT ON Start: 03-27-2017 GLUCOSE, WHOLE BLOOD JON LAURENT Start: 03-27-2017 POCT GLUCOSE CAMERON FELT ON Start: 03-27-2017 INTAKE AND OUTPUT CAMERON MEHRAN Start: 03-26-2017 GLUCOSE, WHOLE BLOOD JON LAURENT Start: 03-26-2017 POCT GLUCOSE CAMERON FELT ON Start: 03-26-2017 GLUCOSE, WHOLE BLOOD JON LAURENT Start: 03-26-2017 POCT GLUCOSE CAMERON FELT ON Start: 03-26-2017 POCT GLUCOSE CAMERON FELT ON Start: 03-26-2017 DIET CARB CONTROL CAMERON MEHRAN Start: 03-26-2017 GLUCOSE, WHOLE BLOOD JA KANA LAURENT Start: 03-26-2017 POCT GLUCOSE CAMERON ALFRED ON Start: 03-26-2017 DAILY WEIGHTS CAMERON JI Start: 03-26-2017 INTAKE AND OUTPUT CAMERON MEHRAN Start: 03-25-2017 GLUCOSE, WHOLE BLOOD JA KANA LAURENT Start: 03-25-2017 BEDREST CAMERON ALFRED ON Start: 03-25-2017 CATHETER REMOVAL CAMERON MEHRAN Start: 03-25-2017 FULL CODE CAMERON AUBRIE ON Start: 03-25-2017 INTAKE AND OUTPUT CAMERON MEHRAN Start: 03-25-2017 IP CONSULT TO CASE MANAGEMENT CAMERON MEHRAN Start: 03-25-2017 NOTIFY PHYSICIAN (SPECIFY) CAMERON LAURENT Start: 03-25-2017 NURSING COMMUNICATION Gay LAURENT Start: 03-25-2017 OT EVAL AND TREAT CAMERON MEHRAN Start: 03-25-2017 POCT GLUCOSE CAMERON AUBRIE ON Start: 03-25-2017 PT EVAL AND TREAT CAMERON LAURENT Start: 03-25-2017 PULSE OXIMETRY SPOT CHECK CAMERON LAURENT Start: 03-25-2017 REASON FOR NO CHEMIC AL VTE PROPHYLAXIS CAMERON LAURENT Start: 03-25-2017 TELEMETRY MONITORING JON KANA LAURENT Start: 03-25-2017 TOBACCO CESSATION EDUCATION CAMERON LAURENT Start: 03-25-2017 VERIFY INFORMED CONSENT CAMERON LAURENT Start: 03-25-2017 VITAL SIGNS CAMERON AUBRIE ON Start: 03-25-2017 PATIENT STATUS (FROM ED OR OR/PROCEDURAL) CAMERON LAURENT Start: 03-25-2017 Chest x-ray 1 view frontal CAMERON LAURENT Start: 03-25-2017 APTT CAMERON AUBRIE ON Start: 03-25-2017 CBC WITH AUTO DIFFERENTIAL CAMERON LAURENT Start: 03-25-2017 COMPREHENSIVE METABO LIC PANEL CAMERON LAURENT Start: 03-25-2017 HEMOGLOBIN A1C CAMERON HI Start: 03-25-2017 PROTIME-INR CAMERON ALFRED ON Start: 03-25-2017 TYPE AND SCREEN CAMERON GAYTAN Start: 03-25-2017 CATHETER REMOVAL CAMERON LAURENT Start: 03-25-2017 INSERT HAYS CATHETER Gay LAURENT Start: 03-25-2017 HAYS/UROLOGY CARE SILVIO Romaine LAURENT Start: 03-25-2017 EKG 12-LEAD CAMERON ALFRED ON Start: 03-25-2017 SALINE LOCK IV CAMERON HI Start: 03-25-2017 Radiologic examinati on knee 3 views CAMERON LAURENT Start: 03-25-2017 Radex hip unilateral with pelvis 2-3 views CAMERON MEHRAN Results Test Name Value Interpretation Reference Range Facility Office Visiton 06-12-2023 Follow-up visit [id number] Rylan Blanc 1955 F Date Provider Department Center 06/12/2023 [id number], EHAB BH CARD [facility] No family history on file Level of Service:49090 [place] OFFICE/OUTPATIENT ESTABLISHED MOD MDM 30-39 MIN Normal [facility] Basic Metabolic Panelon 04-24 Anion gap [Moles/Vol] 15.7 mmol/L High 6.0-15.[address] [facility] Comment on above: Performed By: #### B MP #### [facility] [address] Calcium [Mass/Vol] 9.2 mg/dL Normal 8.6-10.3 [facility] Comment on above: Result Comment: PERF ORMED BY: [place] [address] PATHOLOGIST GAUGE AND WEIGH MACHINE ADJUSTER WEN LOBO M.D. Performed By: #### B MP #### [facility] [address] Chloride [Moles/Vol] 107 mmol/L Normal 98-107 [facility] Comment on above: Performed By: #### B MP #### [facility] [address] [place] [address] [place] CO2 [Moles/Vol] 20.2 mmol/L Low 21.0-31.0 [facility] Comment on above: Performed By: #### B MP #### [facility] [address] [place] [address] [place] Creatinine [Mass/Vol] 1.02 mg/dL Normal 0.60-1.20 [facility] Comment on above: Performed By: #### B MP #### [facility] [address] [place] [address] [place] GFR/1.73 sq M.predicted MDRD (S/P/Bld) [Vol rate/Area] mL/min/{1.73_m2} Normal [facility] Comment on above: Performed By: #### B MP #### [facility] [address] [place] [address] [place] Glucose [Mass/Vol] 178 mg/dL High 70-100 [facility] Comment on above: Result Comment: [place] Glucose Reference Range is dependent on time and content of last meal. Glucose of more than 200 mg/dL in a nonstressed, ambulatory subject supports the diagnosis of Diabetes Mellitus. ADA recommended reference range Performed By: #### B MP #### [facility] [address] Potassium [Moles/Vol] 4.9 mmol/L Normal 3.5-5.1 [facility] Comment on above: Performed By: #### B MP #### [facility] [address] [place] [address] [place] Sodium [Moles/Vol] 138 mmol/L Normal 136-145 [facility] Comment on above: Performed By: #### B MP #### [facility] [address] Urea nitrogen [Mass/Vol] 23 mg/dL Normal 7-25 [facility] Comment on above: Performed By: #### B MP #### [facility] [address] Calcium [Mass/volume] in Ser um or PlasmaOrdered By: Angy Patel on 05-14-2023 Calcium [Mass/Vol] 9.2 mg/dL 8.6-10.3 [facility] Carbon dioxide, total [Moles /volume] in Serum or PlasmaOrdered By: Angy Patel on 05-14-2023 CO2 [Moles/Vol] 20.2 mmol/L 21.0-31.0 [facility] Chloride [Moles/volume] in S elizabeth or PlasmaOrdered By: Angy Patel on 05-14-2023 Chloride [Moles/Vol] 107 mmol/L 98-107 [facility] Creatinine [Mass/volume] in Serum or PlasmaOrdered By: Angy Patel on 05-14-2023 Creatinine [Mass/Vol] 1.02 mg/dL 0.60-1.20 [facility] Glucose [Mass/volume] in Ser um or PlasmaOrdered By: Angy Patel on 05-14-2023 Glucose [Mass/Vol] 178 mg/dL 70-100 [facility] Comment on above: ADA recommended refe rence rangeRandom Glucose Reference Range is dependent on time and content of last meal. Glucose of more than 200 mg/dL in a nonstressed, ambulatory subject supports the diagnosis of Diabetes Mellitus. No Panel InformationOrdered By: Angy Patel on 05-14-2023 Estimated GFR (CKD-EPI) > 60.0 mL/Min [facility] Creatinine Clearance (Chem N/A [facility] Potassium [Moles/volume] in Serum or PlasmaOrdered By: Angy Patel on 05-14-2023 Potassium [Moles/Vol] 4.9 mmol/L 3.5-5.1 [facility] Serum or plasma anion gap de terminationOrdered By: Angy Patel on 05-14-2023 Anion gap [Moles/Vol] 15.7 mmol/L 6.0-15.[address] [facility] Sodium [Moles/volume] in Ser um or PlasmaOrdered By: Angy Patel on 05-14-2023 Sodium [Moles/Vol] 138 mmol/L 136-145 [facility] Urea nitrogen [Mass/volume] in Serum or PlasmaOrdered By: Angy Patel on 05-14-2023 Urea nitrogen [Mass/Vol] 23 mg/dL 7-25 [facility] 30on 05-06-2023 30 The patient is Moder ately Stable - Low risk of patient condition declining or worsening The patient's goals for the shift include TED The clinical goals for the shift include VSS Pt alert but confused. Able to feed self with set up. Incontinent of bowel/bladder. Awaiting SNF placement. Normal [facility] 30 Daily Case Managemen t Update Multidisciplinary rounds have been completed. Barriers to Discharge: Awaiting pre-cert to [facility]. Diet: Dietary Orders (From admission, onward) Start [...] OT Six Click Score: 18 PT Recommendations: [facility] facility placement OT Recommendations: [facility] facility placement New Consults: Consult Orders (From admission, onward) Start Ordered 04/26/23 1357 Inpatient consult to Cardiology Once Specialty: Cardiology Provider: (Not yet assigned) Question Answer Comment Consulting Group CARDIOLOGY TEAM Reason for Consult? 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 Answer: eval 04/27/23 1306 04/27/23 1307 OT eval and treat Until therapy completed Question: Reason for OT? Answer: eval 04/27/23 1306 [facility] 30 The patient is Moder ately Stable - Low risk of patient condition declining or worsening The patient's goals for the shift include Rest/Comfort The clinical goals for the shift include VSS and Discharge Planning Patient is being discharged [facility] [place]. Attempted to call report but got a voicemail for [place]. Left my name and phone number. Will attempt to call back in 30 minutes. Report was given to [place]. Normal [facility] POCT GLUCOSE METER UNSOLICIT ED RESULTSon 05-06-2023 Glucose [Mass/Vol] 137 mg/dL High 70-105 [facility] Comment on above: Order Comment: Waive d Testing in the ED is performed under the ED CLIA certificate #[id number]. Result Comment: [email or web address] Performed By: #### L [id number] #### [facility] ([facility]) [address] [place] [address] Glucose [Mass/Vol] 237 mg/dL High 70-105 [facility] Comment on above: Order Comment: Waive d Testing in the ED is performed under the ED CLIA certificate #[id number]. Result Comment: [email or web address] Performed By: #### L [id number] #### [facility] ([facility]) [address] [place] [address] 30on 05-05-2023 30 The patient is Moder [...] and behaviors that affect risk of falls [place] fall precautions as indicated by assessment Educate [...] (Taken 05/05/2023729) (more content not included)... Normal [facility] POCT GLUCOSE METER UNSOLICIT ED RESULTSon 05-05-2023 Glucose [Mass/Vol] 194 mg/dL High 70-105 [facility] Comment on above: Order Comment: Waive d Testing in the ED is performed under the ED CLIA certificate #[id number]. Result Comment: [email or web address] Performed By: #### L [id number] #### [facility] ([facility]) [address] [place] [address] Glucose [Mass/Vol] 255 mg/dL High 70-105 [facility] Comment on above: Order Comment: Waive d Testing in the ED is performed under the ED CLIA certificate #[id number]. Result Comment: [email or web address] Performed By: #### L [id number] #### [facility] ([facility]) [address] [place] [address] Glucose [Mass/Vol] 136 mg/dL High 70-105 [facility] Comment on above: Order Comment: Waive d Testing in the ED is performed under the ED CLIA certificate #[id number]. Result Comment: [email or web address] Performed By: #### L [id number] ####[facility] ([facility])[address] [facility] [place] [address] Glucose [Mass/Vol] 261 mg/dL High 70-105 [facility] Comment on above: Order Comment: Waive d Testing in the ED is performed under the ED CLIA certificate #[id number]. Result Comment: [email or web address] Performed By: #### L [id number] #### [facility] ([facility]) [address] [place] [address] 30on 05-04-2023 30 The patient is Moder ately Stable - Low risk of patient condition declining or worsening The patient's goals for the shift include Comfort The clinical goals for the shift include VSS Over the shift, the patient did make progress toward the following goals listed below; Problem: Pain - Adult Goal: Verbalizes/displays adequate comfort level or baseline comfort level 05/04/2023 1641 by Adilson Gallo RN Outcome: Progressing Flowsheets [...] Adilson Gallo RN Outcome: Progressing Flowsheets (Taken 05/04/202330) Free from fall injury: Assess patient frequently for physical needs Identify cognitive and physical deficits and behaviors that affect risk of falls [place] fall precautions as indicated by assessment Educate [...] and behaviors that affect risk of falls [place] fall precautions as indicated by assessment Educate patient/family on patient safety, including physical limitations Instruct patient to call for assistance with activity based on assessment Modify environment to reduce risk of injury Consider OT/PT consult to assist with strengthening/mobility Problem: Discharge Planning Goal: Discharge to home or other facility with appropriate resources 05/04/20231640 by Adilson Gallo RN Outcome: Progressing Flowsheets (Taken 05/04/202330) Discharge to home or other facility with appropriate resources: Identify barriers to discharge with patient and caregiver Arrange for needed discharge resources and transportation as appropriate Identify discharge learning needs (meds, wound care, etc) 05/04/20231640 by Adilson Gallo RN Outcome: Progressing Flowsheets (Taken 05/04/202330) Discharge to home or other facility with [...] Dominick Velázquez (more content not included)... Normal [facility] 30 The patient is Moder ately Stable - Low risk of patient condition declining or worsening The patient's goals for the shift include comfort The clinical goals for the shift include VSS Problem: Pain - Adult Goal: Verbalizes/displays adequate comfort level or baseline comfort level Outcome: Progressing Flowsheets (Taken 05/04/2023 09 by Adilson Gallo RN) Verbalizes/displays adequate comfort level or baseline comfort level: Encourage patient to monitor pain and request assistance Assess pain using appropriate pain scale Administer analgesics based on type and severity of pain and evaluate response Problem: Safety - Adult Goal: Free from fall injury Outcome: Progressing Flowsheets (Taken 05/04/2023729 by Adilson Gallo RN) Free from fall injury: Assess patient frequently for physical needs Identify cognitive and physical deficits and behaviors that affect risk of falls [place] fall precautions as indicated by assessment Educate [...] and prevent overall improvement and discharge Normal [facility] BASIC METABOLIC PANELon 04-23 Anion gap [Moles/Vol] 10 mmol/L Normal 7-20 [facility] Comment on above: Performed By: #### L [id number] #### [facility] ([facility]) [address] [place] [address] Calcium [Mass/Vol] 9.4 mg/dL Normal 8.6-10.3 [facility] Comment on above: Performed By: #### L [id number] #### [facility] ([facility]) [address] [place] [address] Chloride [Moles/Vol] 108 mmol/L High 98-107 [facility] Comment on above: Performed By: #### L [id number] #### [facility] [address] [place] [address] CO2 [Moles/Vol] 24 mmol/L Normal 21-31 [facility] Comment on above: Performed By: #### L [id number] #### [facility] ([facility]) [address] [place] [address] Creatinine [Mass/Vol] 0.82 mg/dL Normal 0.60-1.20 [facility] Comment on above: Performed By: #### L [id number] #### [facility] ([facility]) [address] [place] [address] GLOMERULAR FILTRATION RATE ML/MIN/1.73 SQ M.PREDICTED 78.4 mL/min/1.73m*2 Normal >60.0 [facility] Comment on above: Result Comment: The [facility]???s estimated glomerular filtration rate (eGFR) will [...] individuals. Performed By: #### L [id number] #### [facility] ([facility]) [address] [place] [address] Glucose [Mass/Vol] 75 mg/dL Normal 70-100 [facility] Comment on above: Performed By: #### L [id number] #### [facility] ([facility]) [address] [place] [address] Potassium [Moles/Vol] 4.0 mmol/L Normal 3.5-5.1 [facility] Comment on above: Performed By: #### L [id number] #### [facility] ([facility]) [address] [place] [address] Sodium [Moles/Vol] 138 mmol/L Normal 136-145 [facility] Comment on above: Performed By: #### L [id number] #### [facility] ([facility]) [address] [place] [address] Urea nitrogen [Mass/Vol] 18 mg/dL Normal 7-25 [facility] Comment on above: Performed By: #### L [id number] #### [facility] ([facility]) [address] [place] [address] UREA NITROGEN/CREATININE (MASS RATIO) IN SER/PLAS 22.0 Normal [facility] Comment on above: Performed By: #### L [id number] #### [facility] ([facility]) [address] [place] [address] CBCon 05-04-2023 Erythrocyte distribution width (RBC) [Ratio] 13.7 % Normal 11.5-15.0 [facility] Comment on above: Performed By: #### L [id number] #### [facility] ([facility]) [address] [place] [address] ERYTHROCYTE MEAN CORPUSCULAR HEMOGLOBIN CONCENTRATION (G/DL) BY AUTOMATED 32.7 g/dL Normal 32.0-35.0 [facility] Comment on above: Performed By: #### L [id number] #### [facility] ([facility]) [address] [place] [address] Hematocrit (Bld) [Volume fraction] 39.7 % Normal 36.0-48.0 [facility] Comment on above: Performed By: #### L [id number] #### [facility] ([facility]) [address] [place] [address] Hemoglobin (Bld) [Mass/Vol] 13.0 g/dL Normal 12.0-15.0 [facility] Comment on above: Performed By: #### L [id number] #### [facility] ([facility]) [address] [place] [address] MCH (RBC) [Entitic mass] 28.3 pg Normal 27.0-33.0 [facility] Comment on above: Performed By: #### L [id number] #### [facility] ([facility]) [address] [place] [address] MCV (RBC) [Entitic vol] 86.3 fL Normal 82.0-98.0 [facility] Comment on above: Performed By: #### L [id number] #### [facility] ([facility]) [address] [place] [address] PLATELETS (10*3/UL) IN BLOOD AUTOMATED COUNT 383 10*3/uL Normal 150-400 [facility] Comment on above: Performed By: #### L [id number] #### [facility] ([facility]) [address] [place] [address] RBC (Bld) [#/Vol] 4.60 10*6/uL Normal 3.80-5.00 [facility] Comment on above: Performed By: #### L [id number] #### [facility] ([facility]) [address] [place] [address] WBC (Bld) [#/Vol] 8.84 10*3/uL Normal 4.00-10.60 [facility] Comment on above: Performed By: #### L [id number] #### [facility] ([facility]) [address] [place] [address] MAGNESIUMon 05-04-2023 Magnesium [Mass/Vol] 1.5 mg/dL Low 1.9-2.7 [facility] Comment on above: Performed By: #### L [id number] #### [facility] ([facility]) [address] [place] [address] POCT GLUCOSE METER UNSOLICIT ED RESULTSon 05-04-2023 Glucose [Mass/Vol] 84 mg/dL Normal 70-105 [facility] Comment on above: Order Comment: Waive d Testing in the ED is performed under the ED CLIA certificate #[id number]. Result Comment: [email or web address] Performed By: #### L [id number] #### [facility] ([facility]) [address] [place] [address] Glucose [Mass/Vol] 189 mg/dL High 70-105 [facility] Comment on above: Order Comment: Waive d Testing in the ED is performed under the ED CLIA certificate #[id number]. Result Comment: [email or web address] Performed By: #### L [id number] #### [facility] ([facility]) [address] [place] [address] Glucose [Mass/Vol] 141 mg/dL High 70-105 [facility] Comment on above: Order Comment: Waive d Testing in the ED is performed under the ED CLIA certificate #[id number]. Result Comment: [email or web address] Performed By: #### L [id number] #### [facility] ([facility]) [address] [place] [address] Glucose [Mass/Vol] 181 mg/dL High 70-105 [facility] Comment on above: Order Comment: Waive d Testing in the ED is performed under the ED CLIA certificate #[id number]. Result Comment: [email or web address] Performed By: #### L [id number] #### [facility] ([facility]) [address] [place] [address] TROPONIN Ion 05-04-2023 Troponin I.cardiac [Mass/Vol] 0.04 ng/mL Normal 0.00-0.04 [facility] Comment on above: Performed By: #### L [id number] #### [facility] ([facility]) [address] [place] [address] 30on 05-03-2023 30 The patient is Moder [...] and behaviors that affect risk of falls [place] fall precautions as indicated by assessment Educate [...] and prevent overall improvement and discharge Normal [facility] 30 Daily Case Managemen t Update Multidisciplinary rounds have been completed. 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 cath today Diet: Dietary Orders (From admission, onward) Start Ordered 05/03/23901 Diet NPO Diet effective now Comments: Sips with medications 05/03/23901 Physician Expected Discharge Date: 05/04/2023 Discharge Delays: Awaiting accepting facility [113] Waiting on discharge facility authorization [108] PT Six Click Score: 16 OT Six Click Score: 15 PT Recommendations: [facility] facility placement OT Recommendations: [facility] facility placement New Consults: Consult Orders (From admission, onward) Start Ordered 04/26/23 1357 Inpatient consult to Cardiology Once Specialty: Cardiology Provider: (Not yet assigned) Question Answer Comment Consulting Group CARDIOLOGY TEAM Reason for Consult? 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 Answer: eval 04/27/23 1306 04/27/23 1307 OT eval and treat Until therapy completed Question: Reason for OT? Answer: emily 04/27/23 1306 Normal [facility] 30 The patient is Moder ately [...] and behaviors that affect risk of falls [place] fall precautions as indicated by assessment Educate [...] or improved Outcome: Progressing Flowsheets (Taken 05/03/2023 08) Care Plan - Patient's Chronic Conditions and [...] Progressing Flowshe (more content not included)... Normal [facility] 30 The patient is Moder ately Stable - Low risk of patient condition declining or worsening The patient's goals for the shift include comfort The clinical goals for the shift include VSS/ cath Problem: Pain - Adult Goal: Verbalizes/displays adequate comfort level or baseline comfort level Outcome: Progressing Flowsheets (Taken 05/03/2023799 by Sharon Aranda RN) Verbalizes/displays adequate comfort [...] and behaviors that affect risk of falls [place] fall precautions as indicated by assessment Educate patient/family on patient safety, including physical limitations Instruct patient to call for assistance with activity based on assessment Modify environment to reduce risk of injury Consider OT/PT consult to assist with strengthening/mobility Problem: Discharge Planning Goal: Discharge to home or other facility with appropriate resources Outcome: Progressing Flowsheets (Taken 05/03/2023 0800 by Sharon Aranda RN) Discharge to home [...] and prevent overall improvement and discharge Normal [facility] CBCon 05-03-2023 Erythrocyte distribution width (RBC) [Ratio] 13.5 % Normal 11.5-15.0 [facility] Comment on above: Performed By: #### L [id number] #### [facility] ([facility]) [address] [place] [address] ERYTHROCYTE MEAN CORPUSCULAR HEMOGLOBIN CONCENTRATION (G/DL) BY AUTOMATED 32.0 g/dL Normal 32.0-35.0 [facility] Comment on above: Performed By: #### L [id number] #### [facility] [address] [place] [address] Hematocrit (Bld) [Volume fraction] 40.6 % Normal 36.0-48.0 [facility] Comment on above: Performed By: #### L [id number] #### [facility] ([facility]) [address] [place] [address] Hemoglobin (Bld) [Mass/Vol] 13.0 g/dL Normal 12.0-15.0 [facility] Comment on above: Performed By: #### L [id number] #### [facility] ([facility]) [address] [place] [address] MCH (RBC) [Entitic mass] 27.9 pg Normal 27.0-33.0 [facility] Comment on above: Performed By: #### L [id number] #### [facility] ([facility]) [address] [place] [address] MCV (RBC) [Entitic vol] 87.1 fL Normal 82.0-98.0 [facility] Comment on above: Performed By: #### L [id number] #### [facility] ([facility]) [address] [place] [address] PLATELETS (10*3/UL) IN BLOOD AUTOMATED COUNT 298 10*3/uL Normal 150-400 [facility] Comment on above: Performed By: #### L [id number] #### [facility] ([facility]) [address] [place] [address] RBC (Bld) [#/Vol] 4.66 10*6/uL Normal 3.80-5.00 [facility] Comment on above: Performed By: #### L [id number] #### [facility] ([facility]) [address] [place] [address] WBC (Bld) [#/Vol] 7.80 10*3/uL Normal 4.00-10.60 [facility] Comment on above: Performed By: #### L [id number] #### [facility] ([facility]) [address] [place] [address] POCT GLUCOSE METER UNSOLICIT ED RESULTSon 05-03-2023 Glucose [Mass/Vol] 161 mg/dL High 70-105 [facility] Comment on above: Order Comment: Waive d Testing in the ED is performed under the ED CLIA certificate #[id number]. Result Comment: [email or web address] Performed By: #### L [id number] ####[facility] ([facility])[address] [place] [address] Glucose [Mass/Vol] 236 mg/dL High 70-105 [facility] Comment on above: Order Comment: Waive d Testing in the ED is performed under the ED CLIA certificate #[id number]. Result Comment: [email or web address] Performed By: #### L [id number] ####[facility] ([facility])[address] [place] [address] Glucose [Mass/Vol] 366 mg/dL High 70-105 [facility] Comment on above: Order Comment: Waive d Testing in the ED is performed under the ED CLIA certificate #[id number]. Result Comment: [facility] Performed By: #### L [id number] #### [facility] ([facility]) [address] [place] [address] Glucose [Mass/Vol] 87 mg/dL Normal 70-105 [facility] Comment on above: Order Comment: Basel ine aPTT before initiating heparin infusion. Result Comment: [email or web address] Performed By: #### L [id number] #### [facility] [address] [place] [address] 30on 05-02-2023 30 The patient is Moder [...] urinary retention Outcome: Adequate for Discharge Normal [facility] BASIC METABOLIC PANELon 04-23 Anion gap [Moles/Vol] 11 mmol/L Normal 7-20 [facility] Comment on above: Performed By: #### L [id number] #### [facility] ([facility]) [address] [place] [address] Calcium [Mass/Vol] 9.3 mg/dL Normal 8.6-10.3 [facility] Comment on above: Performed By: #### L [id number] #### [facility] ([facility]) [address] [place] [address] Chloride [Moles/Vol] 108 mmol/L High 98-107 [facility] Comment on above: Performed By: #### L [id number] #### [facility] ([facility]) [address] [place] [address] CO2 [Moles/Vol] 26 mmol/L Normal 21- [facility] Comment on above: Performed By: #### L [id number] #### [facility] ([facility]) [address] [place] [address] Creatinine [Mass/Vol] 0.88 mg/dL Normal 0.60-1.20 [facility] Comment on above: Performed By: #### L [id number] #### [facility] ([facility]) [address] [place] [address] GLOMERULAR FILTRATION RATE ML/MIN/1.73 SQ M.PREDICTED 72.0 mL/min/1.73m*2 Normal >60.0 [facility] Comment on above: Result Comment: The [facility]???s estimated glomerular filtration rate (eGFR) will [...] group of individuals. Performed By: #### L [id number] #### [facility] ([facility]) [address] [place] [address] Glucose [Mass/Vol] 197 mg/dL High 70-100 [facility] Comment on above: Performed By: #### L [id number] #### [facility] ([facility]) [address] [place] [address] Potassium [Moles/Vol] 3.9 mmol/L Normal 3.5-5.1 [facility] Comment on above: Performed By: #### L [id number] #### [facility] ([facility]) [address] [place] [address] Sodium [Moles/Vol] 141 mmol/L Normal 136-145 [facility] Comment on above: Performed By: #### L [id number] #### [facility] ([facility]) [address] [place] [address] Urea nitrogen [Mass/Vol] 24 mg/dL Normal 7-25 [facility] Comment on above: Performed By: #### L [id number] #### [facility] ([facility]) [address] [place] [address] UREA NITROGEN/CREATININE (MASS RATIO) IN SER/PLAS 27.3 Normal [facility] Comment on above: Performed By: #### L [id number] #### [facility] ([facility]) [address] [place] [address] MAGNESIUMon 05-02-2023 Magnesium [Mass/Vol] 1.5 mg/dL Low 1.9-2.7 [facility] Comment on above: Performed By: #### L [id number] ####[facility] ([facility])[address] [place] [address] POCT GLUCOSE METER UNSOLICIT ED RESULTSon 05-02-2023 Glucose [Mass/Vol] 144 mg/dL High 70-105 [facility] Comment on above: Order Comment: Waive d Testing in the ED is performed under the ED CLIA certificate #[id number]. Result Comment: [email or web address] [email or web address] Performed By: #### L [id number] #### [facility] ([facility]) [address] [place] [address] Glucose [Mass/Vol] 338 mg/dL High 70-105 [facility] Comment on above: Order Comment: Waive d Testing in the ED is performed under the ED CLIA certificate #[id number]. Result Comment: [email or web address] Performed By: #### L [id number] #### [facility] ([facility]) [address] [place] [address] Glucose [Mass/Vol] 372 mg/dL High 70-105 [facility] Comment on above: Order Comment: Waive d Testing in the ED is performed under the ED CLIA certificate #[id number]. Result Comment: [email or web address] Performed By: #### L [id number] #### [facility] ([facility]) [address] [place] [address] Glucose [Mass/Vol] 204 mg/dL High 70-105 [facility] Comment on above: Order Comment: Basel ine aPTT before initiating heparin infusion. Result Comment: [email or web address] Performed By: #### L [id number] #### [facility] ([facility]) [address] [place] [address] 30on 05-01-2023 30 The patient is Moder ately Stable [...] Absence of urinary retention Outcome: Progressing Normal [facility] 30 Daily Case Managemen t Update [...] OT Six Click Score: 15 PT Recommendations: [facility] facility placement OT Recommendations: [facility] facility placement New Consults: Consult Orders (From admission, onward) Start Ordered 04/26/23 1357 Inpatient consult to Cardiology Once Specialty: Cardiology Provider: (Not yet assigned) Question Answer Comment Consulting Group CARDIOLOGY TEAM Reason for Consult? 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 Answer: eval 04/27/23 1306 Normal [facility] BASIC METABOLIC PANELon 08-0 -2022 Anion gap [Moles/Vol] 11 mmol/L Normal 7-20 [facility] Comment on above: Performed By: #### L [id number] #### [facility] ([facility]) [address] [place] [address] Calcium [Mass/Vol] 9.1 mg/dL Normal 8.6-10.3 [facility] Comment on above: Performed By: #### L [id number] #### [facility] ([facility]) [address] [place] [address] Chloride [Moles/Vol] 108 mmol/L High 98-107 [facility] Comment on above: Performed By: #### L [id number] #### [facility] ([facility]) [address] [place] [address] CO2 [Moles/Vol] 23 mmol/L Normal 21-31 [facility] Comment on above: Performed By: #### L [id number] #### [facility] ([facility]) [address] [place] [address] Creatinine [Mass/Vol] 0.76 mg/dL Normal 0.60-1.20 [facility] Comment on above: Performed By: #### L [id number] #### [facility] ([facility]) [address] [place] [address] GLOMERULAR FILTRATION RATE ML/MIN/1.73 SQ M.PREDICTED 85.8 mL/min/1.73m*2 Normal >60.0 [facility] Comment on above: Result Comment: The [facility]???s estimated glomerular filtration rate (eGFR) will [...] individuals. Performed By: #### L [id number] #### [facility] ([facility]) [address] [place] [address] Glucose [Mass/Vol] 204 mg/dL High 70-100 [facility] Comment on above: Performed By: #### L [id number] #### [facility] ([facility]) [address] [place] [address] Potassium [Moles/Vol] 4.1 mmol/L Normal 3.5-5.1 [facility] Comment on above: Performed By: #### L [id number] #### [facility] ([facility]) [address] [place] [address] Sodium [Moles/Vol] 138 mmol/L Normal 136-145 [facility] Comment on above: Performed By: #### L [id number] #### [facility] ([facility]) [address] [place] [address] Urea nitrogen [Mass/Vol] 26 mg/dL High 7-25 [facility] Comment on above: Performed By: #### L [id number] #### [facility] ([facility]) [address] [place] [address] UREA NITROGEN/CREATININE (MASS RATIO) IN SER/PLAS 34.2 Normal [facility] Comment on above: Performed By: #### L [id number] #### [facility] ([facility]) [address] [place] [address] CBCon 05-01-2023 Erythrocyte distribution width (RBC) [Ratio] 13.2 % Normal 11.5-15.0 [facility] Comment on above: Performed By: #### L [id number] ####[facility] ([facility])[address] [place] [address] ERYTHROCYTE MEAN CORPUSCULAR HEMOGLOBIN CONCENTRATION (G/DL) BY AUTOMATED 33.0 g/dL Normal 32.0-35.0 [facility] Comment on above: Performed By: #### L [id number] ####[facility] ([facility])[address] [place] [address] Hematocrit (Bld) [Volume fraction] 39.4 % Normal 36.0-48.0 [facility] Comment on above: Performed By: #### L [id number] ####[facility] ([facility])[address] [place] [address] Hemoglobin (Bld) [Mass/Vol] 13.0 g/dL Normal 12.0-15.0 [facility] Comment on above: Performed By: #### L [id number] ####[facility] ([facility])[address] [place] [address] MCH (RBC) [Entitic mass] 28.0 pg Normal 27.0-33.0 [facility] Comment on above: Performed By: #### L [id number] ####[facility] ([facility])[address] [place] [address] MCV (RBC) [Entitic vol] 84.9 fL Normal 82.0-98.0 [facility] Comment on above: Performed By: #### L [id number] ####[facility] ([facility])[address] [place] [address] PLATELETS (10*3/UL) IN BLOOD AUTOMATED COUNT 341 10*3/uL Normal 150-400 [facility] Comment on above: Performed By: #### L [id number] ####[facility] [place] [address] RBC (Bld) [#/Vol] 4.64 10*6/uL Normal 3.80-5.00 [facility] Comment on above: Performed By: #### L [id number] ####[facility] ([facility])[address] [place] [address] WBC (Bld) [#/Vol] 7.98 10*3/uL Normal 4.00-10.60 [facility] Comment on above: Performed By: #### L [id number] ####[facility] ([facility])[address] [place] [address] HPon 05-01-2023 HP ------ -- Attestation signed by Bette Sanchez MD at 05/01/2023 3:08 PM Due to worsening in the patient's mental status, the cardiac catheterization will be deferred at this juncture. Decisions regarding timing will need to be made on a day-to-day basis. Bette Sanchez MD, MPH, [facility], [facility], [facility] Interventional Cardiology Pager Email: [email or web address] -- H&P reviewed. The patient was examined and there are no changes to the H&P. Patient with NSTEMI vs Type II NH and new reduction of EF (45% to 30%). Peak troponin 2.4. Plan for coronary angiography today. [facility] MAGNESIUMon 05-01-2023 Magnesium [Mass/Vol] 1.3 mg/dL Low 1.9-2.7 [facility] Comment on above: Performed By: #### L [id number] #### [facility] ([facility]) [address] [place] [address] NURSNOTEon 05-01-2023 NURSNOTE Patient has become m ore agitated and non-compliant with telemetry monitoring. She tried to hit the insurance underwriter sales and leave the room. Security was called and they helped the patient back to bed and safety. Dr. Quan is notified and he is okay with patient not being monitored. [facility] is notified as well. Normal [facility] NURSNOTE Patient had pulled h er IV out, insurance underwriter sales called the PICC-nurse to start a new one and patient tried to hit the PICC nurse and refused to get the IV. Dr. Quan is aware that patient is without an IV. [facility] POCT GLUCOSE METER UNSOLICIT ED RESULTSon 05-01-2023 Glucose [Mass/Vol] 211 mg/dL High 70-105 [facility] Comment on above: Order Comment: Waive d Testing in the ED is performed under the ED CLIA certificate #[id number]. Result Comment: [email or web address] Performed By: #### L [id number] #### [facility] ([facility]) [address] [place] [address] Glucose [Mass/Vol] 174 mg/dL High 70-105 [facility] Comment on above: Order Comment: Waive d Testing in the ED is performed under the ED CLIA certificate #[id number]. Result Comment: [email or web address] esn Performed By: #### L [id number] #### [facility] ([facility]) [address] [place] [address] Glucose [Mass/Vol] 241 mg/dL High 70-105 [facility] Comment on above: Order Comment: Waive d Testing in the ED is performed under the ED CLIA certificate #[id number]. Result Comment: atru ss Performed By: #### L [id number] #### [facility] ([facility]) [address] [place] [address] 30on 04-30-2023 30 The patient is Moder ately Stable [...] and oxygenation Outcome: Adequate for Discharge Normal [facility] 30 The patient is Moder ately [...] Absence of urinary retention Outcome: Progressing Normal [facility] 30 Daily Case Managemen t Update [...] OT Six Click Score: 6 PT Recommendations: [facility] facility placement OT Recommendations: [facility] facility placement New Consults: Consult Orders (From admission, onward) Start Ordered 04/26/23 1357 Inpatient consult to Cardiology Once Specialty: Cardiology Provider: (Not yet assigned) Question Answer Comment Consulting Group CARDIOLOGY TEAM Reason for Consult? 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 Answer: eval 04/27/23 1306 Normal [facility] BASIC METABOLIC PANELon 08-0 Anion gap [Moles/Vol] 11 mmol/L Normal 7-20 [facility] Comment on above: Performed By: #### L [id number] #### [facility] ([facility]) [address] [place] [address] Calcium [Mass/Vol] 9.3 mg/dL Normal 8.6-10.3 [facility] Comment on above: Performed By: #### L [id number] #### [facility] ([facility]) [address] [place] [address] Chloride [Moles/Vol] 108 mmol/L High 98-107 [facility] Comment on above: Performed By: #### L [id number] #### [facility] [address] [place] [address] CO2 [Moles/Vol] 29 mmol/L Normal 21-31 [facility] Comment on above: Performed By: #### L [id number] #### [facility] ([facility]) [address] [place] [address] Creatinine [Mass/Vol] 0.82 mg/dL Normal 0.60-1.20 [facility] Comment on above: Performed By: #### L [id number] #### [facility] ([facility]) [address] [place] [address] GLOMERULAR FILTRATION RATE ML/MIN/1.73 SQ M.PREDICTED 78.4 mL/min/1.73m*2 Normal >60.0 [facility] Comment on above: Result Comment: The [facility]???s estimated glomerular filtration rate (eGFR) will [...] group of individuals. Performed By: #### L [id number] #### [facility] ([facility]) [address] [place] [address] Glucose [Mass/Vol] 165 mg/dL High 70-100 [facility] Comment on above: Performed By: #### L [id number] #### [facility] ([facility]) [address] [place] [address] Potassium [Moles/Vol] 3.7 mmol/L Normal 3.5-5.1 [facility] Comment on above: Performed By: #### L [id number] #### [facility] ([facility]) [address] [place] [address] Sodium [Moles/Vol] 144 mmol/L Normal 136-145 [facility] Comment on above: Performed By: #### L [id number] #### [facility] ([facility]) [address] [place] [address] Urea nitrogen [Mass/Vol] 22 mg/dL Normal 7-25 [facility] Comment on above: Performed By: #### L [id number] #### [facility] ([facility]) [address] [place] [address] UREA NITROGEN/CREATININE (MASS RATIO) IN SER/PLAS 26.8 Normal [facility] Comment on above: Performed By: #### L [id number] #### [facility] [address] [place] [address] MAGNESIUMon 04-30-2023 Magnesium [Mass/Vol] 1.5 mg/dL Low 1.9-2.7 [facility] Comment on above: Performed By: #### L [id number] #### [facility] ([facility]) [address] [place] [address] POCT GLUCOSE METER UNSOLICIT ED RESULTSon 04-30-2023 Glucose [Mass/Vol] 156 mg/dL High 70-105 [facility] Comment on above: Order Comment: Waive d Testing in the ED is performed under the ED CLIA certificate #[id number]. Result Comment: [email or web address] Performed By: #### L [id number] #### [facility] ([facility]) [address] [place] [address] Glucose [Mass/Vol] 150 mg/dL High 70-105 [facility] Comment on above: Order Comment: Waive d Testing in the ED is performed under the ED CLIA certificate #[id number]. Result Comment: [facility] [email or web address] Performed By: #### L [id number] #### [facility] ([facility]) [address] [place] [address] Glucose [Mass/Vol] 379 mg/dL High 70-105 [facility] Comment on above: Order Comment: Waive d Testing in the ED is performed under the ED CLIA certificate #[id number]. Result Comment: [facility] [email or web address] Performed By: #### L [id number] ####[facility] [place] [address] Glucose [Mass/Vol] 202 mg/dL High 70-105 [facility] Comment on above: Order Comment: Waive d Testing in the ED is performed under the ED CLIA certificate #[id number]. Result Comment: [email or web address] Performed By: #### L [id number] #### [facility] ([facility]) [address] [place] [address] 30on 04-29-2023 30 Problem: Pain - Adul t Goal: [...] and behaviors that affect risk of falls [place] fall precautions as indicated by assessment Educate [...] and behaviors that affect risk of falls [place] fall precautions as indicated by assessment Educate [...] to preven (more content not included)... 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 Answer: eval 04/27/23 1306 Normal [facility] BASIC METABOLIC PANELon 08-0 Anion gap [Moles/Vol] 15 mmol/L Normal 7-20 [facility] Comment on above: Performed By: #### L [id number] #### [facility] ([facility]) [address] [place] [address] Calcium [Mass/Vol] 9.1 mg/dL Normal 8.6-10.3 [facility] Comment on above: Performed By: #### L [id number] #### [facility] ([facility]) [address] [place] [address] Chloride [Moles/Vol] 106 mmol/L Normal 98-107 [facility] Comment on above: Performed By: #### L [id number] #### [facility] [address] [place] [address] CO2 [Moles/Vol] 22 mmol/L Normal 21-31 [facility] Comment on above: Performed By: #### L [id number] #### [facility] ([facility]) [address] [place] [address] Creatinine [Mass/Vol] 0.74 mg/dL Normal 0.60-1.20 [facility] Comment on above: Performed By: #### L [id number] #### [facility] ([facility]) [address] [place] [address] GLOMERULAR FILTRATION RATE ML/MIN/1.73 SQ M.PREDICTED 88.6 mL/min/1.73m*2 Normal >60.0 [facility] Comment on above: Result Comment: The [facility]???s estimated glomerular filtration rate (eGFR) will [...] group of individuals. Performed By: #### L [id number] #### [facility] [address] [place] [address] Glucose [Mass/Vol] 223 mg/dL High 70-100 [facility] Comment on above: Performed By: #### L [id number] #### [facility] ([facility]) [address] [place] [address] Potassium [Moles/Vol] 3.8 mmol/L Normal 3.5-5.1 [facility] Comment on above: Performed By: #### L [id number] #### [facility] ([facility]) [address] [place] [address] Sodium [Moles/Vol] 139 mmol/L Normal 136-145 [facility] Comment on above: Performed By: #### L [id number] #### [facility] [address] [place] [address] Urea nitrogen [Mass/Vol] 20 mg/dL Normal 7-25 [facility] Comment on above: Performed By: #### L [id number] #### [facility] ([facility]) [address] [place] [address] UREA NITROGEN/CREATININE (MASS RATIO) IN SER/PLAS 27.0 Normal [facility] Comment on above: Performed By: #### L [id number] #### [facility] [address] [place] [address] CBCon 04-29-2023 Erythrocyte distribution width (RBC) [Ratio] 13.2 % Normal 11.5-15.0 [facility] Comment on above: Performed By: #### L [id number] #### [facility] ([facility]ER) [address] [place] [address] ERYTHROCYTE MEAN CORPUSCULAR HEMOGLOBIN CONCENTRATION (G/DL) BY AUTOMATED 34.3 g/dL Normal 32.0-35.0 [facility] Comment on above: Performed By: #### L [id number] #### [facility] [address] [place] [address] Hematocrit (Bld) [Volume fraction] 38.2 % Normal 36.0-48.0 [facility] Comment on above: Performed By: #### L [id number] #### [facility] [address] [place] [address] Hemoglobin (Bld) [Mass/Vol] 13.1 g/dL Normal 12.0-15.0 [facility] Comment on above: Performed By: #### L [id number] #### [facility] ([facility]) [address] [place] [address] MCH (RBC) [Entitic mass] 28.5 pg Normal 27.0-33.0 [facility] Comment on above: Performed By: #### L [id number] #### [facility] ([facility]) [address] [place] [address] MCV (RBC) [Entitic vol] 83.2 fL Normal 82.0-98.0 [facility] Comment on above: Performed By: #### L [id number] #### [facility] ([facility]) [address] [place] [address] PLATELETS (10*3/UL) IN BLOOD AUTOMATED COUNT 305 10*3/uL Normal 150-400 [facility] Comment on above: Performed By: #### L [id number] #### [facility] ([facility]) [address] [place] [address] RBC (Bld) [#/Vol] 4.59 10*6/uL Normal 3.80-5.00 [facility] Comment on above: Performed By: #### L [id number] #### [facility] ([facility]) [address] [place] [address] WBC (Bld) [#/Vol] 7.42 10*3/uL Normal 4.00-10.60 [facility] Comment on above: Performed By: #### L [id number] #### [facility] ([facility]) [address] [place] [address] CONSULTon 04-29-2023 CONSULT ------ -- Attestation signed by Luis Alvarez DO at 05/01/2023 1:00 PM Agree with above, provisional diagnosis is delirium secondary to medical condition. -- PSYCHIATRIC INITIAL HISTORY AND PHYSICAL/CONSULT NOTE Kiara Blanc is a 68 y.o. female who presented on 04/26/2023 to [facility] from [facility] ([facility]) for acute NSTEMI. Psychiatry was consulted on [...] acute NSTEMI. She was admitted initially at [facility] ([facility]) on 04/25/2023 after she was found [...] talk to , Mr. Cameron Blanc (ph: [phone]) at the patient's bedside. He called EMS [...] multiple hospitaliz (more content not included)... Normal [facility] HEPARIN LEVELon 04-29-2023 HEPARIN UNFRACTIONATED (U/ML) IN PPP BY CHROMOGENIC METHOD 0.26 IU/mL Low 0.3-0.7 [facility] Comment on above: Result Comment: Jolanta roxaban and Apixaban will interfere with the anti Xa assay used to monitor UFH and LMWH. Performed By: #### L [id number] ####[facility] (BEAKER)[address] [place] [address] MAGNESIUMon 04-29-2023 Magnesium [Mass/Vol] 1.6 mg/dL Low 1.9-2.7 [facility] Comment on above: Performed By: #### L [id number] #### [facility] (AKER) [address] [place] [address] NURSNOTEon 04-29-2023 NURSNOTE Pt at [facility] e visiting. Informed of most recent poc for his at this time. Informed Dr Talley and psychiatry of being present at bedside in order for them to involve in pt care. Psych states will come speak to . Normal [facility] POCT GLUCOSE METER UNSOLICIT ED RESULTSon 04-29-2023 Glucose [Mass/Vol] 184 mg/dL High 70-105 [facility] Comment on above: Order Comment: Waive d Testing in the ED is performed under the ED CLIA certificate #[id number]. Result Comment: [email or web address] Performed By: #### L [id number] #### [facility] ([facility]) [address] [place] [address] Glucose [Mass/Vol] 210 mg/dL High 70-105 [facility] Comment on above: Order Comment: Waive d Testing in the ED is performed under the ED CLIA certificate #[id number]. Result Comment: [email or web address] [email or web address] Performed By: #### L [id number] ####[facility] ([facility])[address] [facility] [place] [place] [address] Glucose [Mass/Vol] 210 mg/dL High 70-105 [facility] Comment on above: Order Comment: Waive d Testing in the ED is performed under the ED CLIA certificate #[id number]. Result Comment: [email or web address] [email or web address] Performed By: #### L [id number] ####[facility] ([facility])[address] [facility] [place] [address] Glucose [Mass/Vol] 209 mg/dL High 70-105 [facility] Comment on above: Order Comment: Waive d Testing in the ED is performed under the ED CLIA certificate #[id number]. Result Comment: [email or web address] Performed By: #### L [id number] ####[facility] ([facility])[address] [place] [address] TSH3 REFLEX TO FT4on 023 THYROTROPIN (MIU/L) IN SER/PLAS BY DETECTION LIMIT <= 0.05 MIU/L 1.24 mIU/L Normal 0.34-5.60 [facility] Comment on above: Performed By: #### L [id number] #### [facility] ([facility]) [address] [address] URINALYSIS MICROSCOPIC WITH REFLEX CULTUREon 04-29-2023 CASTS IN URINE Normal [facility] Comment on above: Performed By: #### L [id number] #### [facility] ([facility]) [address] [address] CRYSTALS IN URINE Normal [facility] Comment on above: Performed By: #### L [id number] #### [facility] ([facility]) [address] [place] [address] OTHER MICROSCOPIC ELEMENTS Normal [facility] Comment on above: Performed By: #### L [id number] #### [facility] ([facility]) [address] [place] [address] RBC (#/HPF) IN URINE SEDIMENT None Seen Normal None Seen [facility] Comment on above: Performed By: #### L [id number] #### [facility] [address] [place] [address] SQUAMOUS EPITHELIAL CELLS (#/HPF) IN URINE SEDIMENT Few Abnormal None Seen, Occasional [facility] Comment on above: Performed By: #### L [id number] #### [facility] ([facility]) [address] [place] [address] WBC (LEUKOCYTE) (#/HPF) IN URINE SEDIMENT 3-5 Abnormal None Seen [facility] Comment on above: Performed By: #### L [id number] #### [facility] ([facility]) [address] [place] [address] YEAST, BUDDING (#/HPF) IN URINE Many Abnormal None Seen [facility] Comment on above: Performed By: #### L [id number] #### [facility] [address] [place] [address] URINALYSIS WITH REFLEX CULTU REon 04-29-2023 BILIRUBIN, TOTAL PRESENCE IN URINE Negative Normal Negative [facility] Comment on above: Performed By: #### L [id number] #### [facility] ([facility]) [address] [place] [address] Clarity (U) Clear Normal Clear [facility] Comment on above: Performed By: #### L [id number] #### [facility] ([facility]) [address] [place] [address] Color (U) Yellow Normal Yellow [facility] Comment on above: Performed By: #### L [id number] #### [facility] ([facility]) [address] [place] [address] Glucose (U) [Mass/Vol] mg/dL Abnormal Negative [facility] Comment on above: Performed By: #### L [id number] #### [facility] ([facility]) [address] [place] [address] HEMOGLOBIN PRESENCE IN URINE Moderate Abnormal Negative [facility] Comment on above: Performed By: #### L [id number] #### [facility] ([facility]) [address] [place] [address] Ketones Ql (U) Trace Abnormal Negative [facility] Comment on above: Performed By: #### L [id number] #### [facility] ([facility]) [address] [place] [address] LEUKOCYTE ESTERASE PRESENCE IN URINE BY TEST STRIP Negative Normal Negative [facility] Comment on above: Performed By: #### L [id number] #### [facility] ([facility]) [address] [place] [address] NITRITE PRESENCE IN URINE Negative Normal Negative [facility] Comment on above: Performed By: #### L [id number] #### [facility] ([facility]) [address] [place] [address] pH (U) 5.0 [pH] Normal 5.0-8.0 [facility] Comment on above: Performed By: #### L [id number] #### [facility] ([facility]) [address] [place] [address] Protein (U) [Mass/Vol] 30 mg/dL Abnormal Negative Un [facility] Comment on above: Performed By: #### L [id number] #### [facility] ([facility]) [address] [place] [address] Specific gravity (U) [Rel density] 1.028 High 1.015-1.020 [facility] Comment on above: Performed By: #### L [id number] #### [facility] ([facility]) [address] [place] [address] VITAMIN B12on 08-07-2023 Cobalamin (Vitamin B12) [Mass/Vol] 512 pg/mL Normal 180-914 [facility] Comment on above: Result Comment: EMANUEL LYNN RANGES: 180-914 pg/mL Normal 145-179 pg/mL Indeterminate <145 pg/mL Deficient Performed By: #### L [id number] #### [facility] ([facility]) [address] [place] [address] 30on 04-28-2023 30 The patient is Moder [...] to discharge with patient and caregiver Normal [facility] BASIC METABOLIC PANELon 08-0 Anion gap [Moles/Vol] 12 mmol/L Normal 7-20 [facility] Comment on above: Performed By: #### L [id number] #### [facility] ([facility]) [address] [place] [address] Calcium [Mass/Vol] 9.2 mg/dL Normal 8.6-10.3 [facility] Comment on above: Performed By: #### L [id number] #### [facility] ([facility]) [address] [place] [address] Chloride [Moles/Vol] 106 mmol/L Normal 98-107 [facility] Comment on above: Performed By: #### L [id number] #### [facility] ([facility]) [address] [place] [address] CO2 [Moles/Vol] 25 mmol/L Normal 21-31 [facility] Comment on above: Performed By: #### L [id number] #### [facility] ([facility]) [address] [place] [address] Creatinine [Mass/Vol] 0.64 mg/dL Normal 0.60-1.20 [facility] Comment on above: Performed By: #### L [id number] #### [facility] ([facility]) [address] [place] [address] GLOMERULAR FILTRATION RATE ML/MIN/1.73 SQ M.PREDICTED 96.8 mL/min/1.73m*2 Normal >60.0 [facility] Comment on above: Result Comment: The [facility]???s estimated glomerular filtration rate (eGFR) will [...] individuals. Performed By: #### L [id number] #### [facility] ([facility]) [address] [place] [address] Glucose [Mass/Vol] 163 mg/dL High 70-100 [facility] Comment on above: Performed By: #### L [id number] #### [facility] ([facility]) [address] [place] [address] Potassium [Moles/Vol] 3.8 mmol/L Normal 3.5-5.1 [facility] Comment on above: Performed By: #### L [id number] #### [facility] ([facility]) [address] [place] [address] Sodium [Moles/Vol] 139 mmol/L Normal 136-145 [facility] Comment on above: Performed By: #### L [id number] #### [facility] ([facility]) [address] [place] [address] Urea nitrogen [Mass/Vol] 14 mg/dL Normal 7-25 [facility] Comment on above: Performed By: #### L [id number] #### [facility] ([facility]) [address] [place] [address] UREA NITROGEN/CREATININE (MASS RATIO) IN SER/PLAS 21.9 Normal [facility] Comment on above: Performed By: #### L [id number] #### [facility] ([facility]) [address] [place] [address] CBCon 04-28-2023 Erythrocyte distribution width (RBC) [Ratio] 13.4 % Normal 11.5-15.0 [facility] Comment on above: Performed By: #### L [id number] #### [facility] ([facility]) [address] [place] [address] ERYTHROCYTE MEAN CORPUSCULAR HEMOGLOBIN CONCENTRATION (G/DL) BY AUTOMATED 34.0 g/dL Normal 32.0-35.0 [facility] Comment on above: Performed By: #### L [id number] #### [facility] ([facility]) [address] [place] [address] Hematocrit (Bld) [Volume fraction] 37.1 % Normal 36.0-48.0 [facility] Comment on above: Performed By: #### L [id number] #### [facility] ([facility]) [address] [place] [address] Hemoglobin (Bld) [Mass/Vol] 12.6 g/dL Normal 12.0-15.0 [facility] Comment on above: Performed By: #### L [id number] #### [facility] ([facility]) [address] [place] [address] MCH (RBC) [Entitic mass] 28.2 pg Normal 27.0-33.0 [facility] Comment on above: Performed By: #### L [id number] #### [facility] [address] [place] [address] MCV (RBC) [Entitic vol] 83.0 fL Normal 82.0-98.0 [facility] Comment on above: Performed By: #### L [id number] #### [facility] ([facility]) [address] [place] [address] PLATELETS (10*3/UL) IN BLOOD AUTOMATED COUNT 313 10*3/uL Normal 150-400 [facility] Comment on above: Performed By: #### L [id number] #### [facility] ([facility]) [address] [place] [address] RBC (Bld) [#/Vol] 4.47 10*6/uL Normal 3.80-5.00 [facility] Comment on above: Performed By: #### L [id number] #### [facility] ([facility]) [address] [place] [address] WBC (Bld) [#/Vol] 8.52 10*3/uL Normal 4.00-10.60 [facility] Comment on above: Performed By: #### L [id number] #### [facility] ([facility]) [address] [place] [address] HEPARIN LEVELon 04-28-2023 HEPARIN UNFRACTIONATED (U/ML) IN PPP BY CHROMOGENIC METHOD 0.43 IU/mL Normal 0.3-0.7 [facility] Comment on above: Result Comment: [place] roxaban and Apixaban will interfere with the anti Xa assay used to monitor UFH and LMWH. Performed By: #### L [id number] ####[facility] ([facility])[address] [place] [address] HEPARIN UNFRACTIONATED (U/ML) IN PPP BY CHROMOGENIC METHOD 0.30 IU/mL Normal 0.3-0.7 [facility] Comment on above: Result Comment: [place] roxaban and Apixaban will interfere with the anti Xa assay used to monitor UFH and LMWH. Performed By: #### L [id number] #### [facility] ([facility]) [address] [place] [address] MAGNESIUMon 04-28-2023 Magnesium [Mass/Vol] 1.2 mg/dL Low 1.9-2.7 [facility] Comment on above: Performed By: #### L [id number] #### [facility] ([facility]) [address] [place] [address] NURSNOTEon 04-28-2023 NURSNOTE IV access lost, prim geoffrey made aware, picc paged. [facility] NURSNOTE Primary made aware o f 1.2 mag, loss of IV access again, picc paged. [facility] NURSNOTE Pt Hr reaching betwe en 100-115, cardio fellow made aware as well as primary. [facility] POCT GLUCOSE METER UNSOLICIT ED RESULTSon 04-28-2023 Glucose [Mass/Vol] 146 mg/dL High 70-105 [facility] Comment on above: Order Comment: Waive d Testing in the ED is performed under the ED CLIA certificate #[id number]. Result Comment: [email or web address] Performed By: #### L [id number] #### [facility] ([facility]) [address] [place] [address] Glucose [Mass/Vol] 185 mg/dL High 70-105 [facility] Comment on above: Order Comment: Waive d Testing in the ED is performed under the ED CLIA certificate #[id number]. Result Comment: [email or web address] Performed By: #### L [id number] #### [facility] ([facility]) [address] [place] [address] Glucose [Mass/Vol] 223 mg/dL High 70-105 [facility] Comment on above: Order Comment: Waive d Testing in the ED is performed under the ED CLIA certificate #[id number]. Result Comment: [email or web address] Performed By: #### L [id number] ####[facility] ([facility])[address] [place] [address] Glucose [Mass/Vol] 205 mg/dL High 70-105 [facility] Comment on above: Order Comment: Waive d Testing in the ED is performed under the ED CLIA certificate #[id number]. Result Comment: atru ss Performed By: #### L [id number] #### [facility] ([facility]) [address] [place] [address] 30on 04-27-2023 30 The patient is Moder [...] Assess for changes in respiratory status Normal [facility] B-TYPE NATRIURETIC PEPTIDEon 04-27-2023 Natriuretic peptide B (Bld) [Mass/Vol] 299 pg/mL High 0-100 [facility] Comment on above: Performed By: #### L [id number] #### [facility] [address] [place] [address] BASIC METABOLIC PANELon Anion gap [Moles/Vol] 7 mmol/L Normal 7-20 [facility] Comment on above: Performed By: #### L [id number] #### [facility] ([facility]) [address] [address] Calcium [Mass/Vol] 7.9 mg/dL Low 8.6-10.3 [facility] Comment on above: Performed By: #### L [id number] #### [facility]) [address] [address] Chloride [Moles/Vol] 111 mmol/L High 98-107 [facility] Comment on above: Performed By: #### L [id number] #### [facility] ([employer]) [address] [place] [address] CO2 [Moles/Vol] 25 mmol/L Normal 21-31 [facility] Comment on above: Performed By: #### L [id number] #### [facility] ([facility]) [address] [address] Creatinine [Mass/Vol] 0.63 mg/dL Normal 0.60-1.20 [facility] Comment on above: Performed By: #### L [id number] #### [facility] ([facility]) [address] [place] [address] GLOMERULAR FILTRATION RATE ML/MIN/1.73 SQ M.PREDICTED 97.2 mL/min/1.73m*2 Normal >60.0 [facility] Comment on above: Result Comment: [facility]???s estimated glomerular filtration rate (eGFR) will [...] group of individuals. Performed By: #### L [id number] #### [facility] ([facility]) [address] [place] [address] Glucose [Mass/Vol] 134 mg/dL High 70-100 [facility] Comment on above: Performed By: #### L [id number] #### [facility] ([facility]) [address] [place] [address] Potassium [Moles/Vol] 3.4 mmol/L Low 3.5-5.1 [facility] Comment on above: Performed By: #### L [id number] #### [facility] ([facility]) [address] [address] Sodium [Moles/Vol] 140 mmol/L Normal 136-145 [facility] Comment on above: Performed By: #### L [id number] #### [facility] ([facility]) [address] [place] [address] Urea nitrogen [Mass/Vol] 9 mg/dL Normal 7-25 [facility] Comment on above: Performed By: #### L [id number] #### [facility] ([facility]) [address] [place] [address] UREA NITROGEN/CREATININE (MASS RATIO) IN SER/PLAS 14.3 Normal [facility] Comment on above: Performed By: #### L [id number] #### [facility] [address] [place] [address] CBCon 04-27-2023 Erythrocyte distribution width (RBC) [Ratio] 13.4 % Normal 11.5-15.0 [facility] Comment on above: Performed By: #### L [id number] ####[facility] ([facility])[address] [place] [address] ERYTHROCYTE MEAN CORPUSCULAR HEMOGLOBIN CONCENTRATION (G/DL) BY AUTOMATED 33.1 g/dL Normal 32.0-35.0 [facility] Comment on above: Performed By: #### L [id number] ####[facility] ([facility])[address] [place] [address] Hematocrit (Bld) [Volume fraction] 35.3 % Low 36.0-48.0 [facility] Comment on above: Performed By: #### L [id number] ####[facility] ([facility] [place] [address] Hemoglobin (Bld) [Mass/Vol] 11.7 g/dL Low 12.0-15.0 [facility] Comment on above: Performed By: #### L [id number] ####[facility] ([facility] [place] [address] MCH (RBC) [Entitic mass] 28.3 pg Normal 27.0-33.0 [facility] Comment on above: Performed By: #### L [id number] ####[facility] ([facility] [place] [address] MCV (RBC) [Entitic vol] 85.3 fL Normal 82.0-98.0 [facility] Comment on above: Performed By: #### L [id number] ####[facility] ([facility])[address] [place] [address] PLATELETS (10*3/UL) IN BLOOD AUTOMATED COUNT 296 10*3/uL Normal 150-400 [facility] Comment on above: Performed By: #### L [id number] ####[facility] ([facility])[address] [place] [address] RBC (Bld) [#/Vol] 4.14 10*6/uL Normal 3.80-5.00 [facility] Comment on above: Performed By: #### L [id number] ####[facility] ([facility])[address] [place] [address] WBC (Bld) [#/Vol] 7.50 10*3/uL Normal 4.00-10.60 [facility] Comment on above: Performed By: #### L [id number] ####[facility] ([facility])[address] [place] [address] HEPARIN LEVELon 04-27-2023 HEPARIN UNFRACTIONATED (U/ML) IN PPP BY CHROMOGENIC METHOD 0.56 IU/mL Normal 0.3-0.7 [facility] Comment on above: Order Comment: Waive d Testing in the ED is performed under the ED CLIA certificate #[id number]. Result Comment: [place] roxaban and Apixaban will interfere with the anti Xa assay used to monitor UFH and LMWH. Performed By: #### L [id number] #### [facility] ([facility]) [address] [place] [address] HEPARIN UNFRACTIONATED (U/ML) IN PPP BY CHROMOGENIC METHOD 0.81 IU/mL High 0.3-0.7 [facility] Comment on above: Order Comment: Waive d Testing in the ED is performed under the ED CLIA certificate #[id number]. Result Comment: [place] roxaban and Apixaban will interfere with the anti Xa assay used to monitor UFH and LMWH. Performed By: #### L [id number] #### [facility] ([facility]) [address] [place] [address] HEPARIN UNFRACTIONATED (U/ML) IN PPP BY CHROMOGENIC METHOD 0.81 IU/mL High 0.3-0.7 [facility] Comment on above: Result Comment: [place] roxaban and Apixaban will interfere with the anti Xa assay used to monitor UFH and LMWH. Performed By: #### L [id number] #### [facility] ([facility]) [address] [place] [address] HEPARIN UNFRACTIONATED (U/ML) IN PPP BY CHROMOGENIC METHOD 0.50 IU/mL Normal 0.3-0.7 [facility] Comment on above: Result Comment: [place] roxaban and Apixaban will interfere with the anti Xa assay used to monitor UFH and LMWH. Performed By: #### L [id number] ####[facility] ([facility])[address] [place] [address] MAGNESIUMon 04-27-2023 Magnesium [Mass/Vol] 1.3 mg/dL Low 1.9-2.7 [facility] Comment on above: Performed By: #### L [id number] #### [facility] ([facility]) [address] [place] [address] NURSNOTEon 04-27-2023 NURSNOTE Lab called regarding missing Heparin level ordered for 2100. Per lab, will send scheduling representative to draw now. Normal [facility] NURSNOTE Call to lab regardin g Heparin level drawn at 2346. Per lab, sample currently spinning and will have results in approximately 15 minutes. [facility] NURSNOTE Nurse magan davis work In regards to APS being called on pt prior to admission to [facility]. Social currently looking into it for any need for plan or action. [facility] NURSNOTE Nurse informed pili davis work In regards to APS being called on pt prior to admission to [facility]. Social currently looking into it for any need for plan or action. Normal [facility] POCT GLUCOSE METER UNSOLICIT ED RESULTSon 04-27-2023 Glucose [Mass/Vol] 175 mg/dL High 70-105 [facility] Comment on above: Order Comment: Waive d Testing in the ED is performed under the ED CLIA certificate #[id number]. Result Comment: [email or web address] Performed By: #### L [id number] ####[facility] ([facility])[address] [place] [address] Glucose [Mass/Vol] 129 mg/dL High 70-105 [facility] Comment on above: Order Comment: Waive d Testing in the ED is performed under the ED CLIA certificate #[id number]. Result Comment: [email or web address] Performed By: #### L [id number] ####[facility] ([facility])[address] [place] [address] Glucose [Mass/Vol] 134 mg/dL High 70-105 [facility] Comment on above: Order Comment: Waive d Testing in the ED is performed under the ED CLIA certificate #[id number]. Result Comment: acar r12 Performed By: #### L [id number] ####[facility] ([facility])[address] [place] [address] Glucose [Mass/Vol] 235 mg/dL High 70-105 [facility] Comment on above: Order Comment: Waive d Testing in the ED is performed under the ED CLIA certificate #[id number]. Result Comment: acar r12 Performed By: #### L [id number] ####[facility] ([facility])[address] [place] [address] Glucose [Mass/Vol] 174 mg/dL High 70-105 [facility] Comment on above: Order Comment: Waive d Testing in the ED is performed under the ED CLIA certificate #[id number]. Result Comment: [email or web address] Performed By: #### L [id number] #### [facility] ([facility]) [address] [place] [address] TROPONIN Ion 04-27-2023 Troponin I.cardiac [Mass/Vol] 1.59 ng/mL Critically high 0.00-0.04 [facility] Comment on above: Result Comment: Prev ious result verified on 04/26/2023 1845 on specimen/case [id number] called with component Troponin I for procedure Troponin I with value 2.45 ng/mL. Performed By: #### L [id number] #### [facility] ([facility]) [address] [place] [address] Troponin I.cardiac [Mass/Vol] 1.17 ng/mL Critically high 0.00-0.04 [facility] Comment on above: Result Comment: Prev ious result verified on 04/27/2023 0213 on specimen/case [id number] called with component Troponin I for procedure Troponin I with value 1.59 ng/mL. Performed By: #### L [id number] #### [facility] ([facility]) [address] [place] [address] 30on 04-26-2023 30 Problem: Pain - Adul [...] for the shift include monitor labs/vitals Normal [facility] APTTon 04-26-2023 ACTIVATED PARTIAL THROMBOPLASTIN TIME IN PPP BY COAGULATION ASSAY 65.1 Seconds High 25.0-35.0 [facility] Comment on above: Order Comment: Basel ine aPTT before initiating heparin infusion. Result Comment: Clin ical significance of the APTT is questionable in the presence of heparin. Performed By: #### L [id number] #### [facility] ([facility]) [address] [place] [address] BILIRUBIN, DIRECTon 04-26-20 23 Magnesium [Mass/Vol] 0.1 mg/dL Normal 0-0.2 [facility] Comment on above: Performed By: #### L [id number] #### [facility] ([facility]) [address] [place] [address] CBC WITH AUTO DIFFERENTIALon 04-26-2023 Basophils (Bld) [#/Vol] 0.04 10*3/uL Normal 0.00-0.20 [facility] Comment on above: Performed By: #### L [id number] #### [facility] ([facility]) [address] [place] [address] Basophils/100 WBC (Bld) 0.6 % Normal 0.0-1.0 [facility] Comment on above: Performed By: #### L [id number] #### [facility] [address] [place] [address] Eosinophils (Bld) [#/Vol] 0.24 10*3/uL Normal 0.00-0.50 [facility] Comment on above: Performed By: #### L [id number] #### [facility] ([facility]) [address] [place] [address] Eosinophils/100 WBC (Bld) 3.3 % Normal 0.0-6.0 [facility] Comment on above: Performed By: #### L [id number] #### [facility] ([facility]) [address] [place] [address] Erythrocyte distribution width (RBC) [Ratio] 13.7 % Normal 11.5-15.0 [facility] Comment on above: Performed By: #### L [id number] #### [facility] ([facility]) [address] [place] [address] ERYTHROCYTE MEAN CORPUSCULAR HEMOGLOBIN CONCENTRATION (G/DL) BY AUTOMATED 33.7 g/dL Normal 32.0-35.0 [facility] Comment on above: Performed By: #### L [id number] #### [facility] ([facility]) [address] [place] [address] Hematocrit (Bld) [Volume fraction] 35.6 % Low 36.0-48.0 [facility] Comment on above: Performed By: #### L [id number] #### [facility] ([facility]) [address] [place] [address] Hemoglobin (Bld) [Mass/Vol] 12.0 g/dL Normal 12.0-15.0 [facility] Comment on above: Performed By: #### L [id number] #### [facility] ([facility]) [address] [place] [address] Immature granulocytes (Bld) [#/Vol] 0.07 10*3/uL Normal 0.00-0.20 [facility] Comment on above: Performed By: #### L [id number] #### [facility] ([facility]) [address] [place] [address] Immature granulocytes/100 WBC (Bld) 1.0 % Normal 0.0-1.0 [facility] Comment on above: Performed By: #### L [id number] #### [facility] [address] [place] [address] Lymphocytes (Bld) [#/Vol] 1.66 10*3/uL Normal 1.20-4.00 [facility] Comment on above: Performed By: #### L [id number] #### [facility] [address] [place] [address] Lymphocytes/100 WBC (Bld) 23.0 % Normal 20.0-45.0 [facility] Comment on above: Performed By: #### L [id number] #### [facility] ([facility]) [address] [place] [address] MCH (RBC) [Entitic mass] 28.6 pg Normal 27.0-33.0 [facility] Comment on above: Performed By: #### L [id number] #### [facility] ([facility]) [address] [place] [address] MCV (RBC) [Entitic vol] 84.8 fL Normal 82.0-98.0 [facility] Comment on above: Performed By: #### L [id number] #### [facility] ([facility]) [address] [place] [address] Monocytes (Bld) [#/Vol] 0.83 10*3/uL Normal 0.10-1.00 [facility] Comment on above: Performed By: #### L [id number] #### [facility] ([facility]) [address] [place] [address] Monocytes/100 WBC (Bld) 11.5 % Normal 5.0-12.0 [facility] Comment on above: Performed By: #### L [id number] #### [facility] ([facility]) [address] [place] [address] Neutrophils (Bld) [#/Vol] 4.37 10*3/uL Normal 1.60-7.60 [facility] Comment on above: Performed By: #### L [id number] #### [facility] ([facility]) [address] [place] [address] Neutrophils/100 WBC (Bld) 60.6 % Normal 40.0-72.0 [facility] Comment on above: Performed By: #### L [id number] #### [facility] ([facility]) [address] [place] [address] NRBC (PER 100 WBCS) BY AUTOMATED COUNT 0.0 % Normal 0 [facility] Comment on above: Performed By: #### L [id number] #### [facility] ([facility]) [address] [place] [address] PLATELETS (10*3/UL) IN BLOOD AUTOMATED COUNT 301 10*3/uL Normal 150-400 [facility] Comment on above: Performed By: #### L [id number] #### [facility] ([facility]) [address] [place] [address] RBC (Bld) [#/Vol] 4.20 10*6/uL Normal 3.80-5.00 [facility] Comment on above: Performed By: #### L [id number] #### [facility] ([facility]) [address] [place] [address] WBC (Bld) [#/Vol] 7.21 10*3/uL Normal 4.00-10.60 [facility] Comment on above: Performed By: #### L [id number] #### [facility] ([facility]) [address] [place] [address] CKon 04-26-2023 CREATINE KINASE (U/L) IN SER/PLAS 396.0 U/L High 30.0-223.0 [facility] Comment on above: Performed By: #### L [id number] #### [facility] ([facility]) [address] [place] [address] COMPREHENSIVE METABOLIC PANE Cedric 04-26-2023 Albumin [Mass/Vol] 3.0 g/dL Low 3.5-5.7 [facility] Comment on above: Performed By: #### L [id number] #### [facility] ([facility] [address] [place] [address] ALP [Catalytic activity/Vol] 63 U/L Normal 34-104 [facility] Comment on above: Performed By: #### L [id number] #### [facility] ([facility]) [address] [place] [address] ALT [Catalytic activity/Vol] 17 U/L Normal 7-52 [facility] Comment on above: Performed By: #### L [id number] #### [facility] ([facility]) [address] [place] [address] Anion gap [Moles/Vol] 10 mmol/L Normal 7-20 [facility] Comment on above: Performed By: #### L [id number] #### [facility] ([facility]) [address] [place] [address] AST [Catalytic activity/Vol] 41 U/L High 13-39 [facility] Comment on above: Performed By: #### L [id number] #### [facility] ([facility]) [address] [place] [address] Bilirubin [Mass/Vol] 0.3 mg/dL Normal 0.3-1.0 [facility] Comment on above: Performed By: #### L [id number] #### [facility] ([facility]) [address] [place] [address] Calcium [Mass/Vol] 8.4 mg/dL Low 8.6-10.3 [facility] Comment on above: Performed By: #### L [id number] #### [facility] ([facility] [address] [place] [address] Chloride [Moles/Vol] 110 mmol/L High 98-107 [facility] Comment on above: Performed By: #### L [id number] #### [facility] ([facility] [address] [place] [address] CO2 [Moles/Vol] 25 mmol/L Normal 21-31 [facility] Comment on above: Performed By: #### L [id number] #### [facility] ([facility] [address] [place] [address] Creatinine [Mass/Vol] 0.70 mg/dL Normal 0.60-1.20 [facility] Comment on above: Performed By: #### L [id number] #### [facility] ([facility]) [address] [place] [address] GLOMERULAR FILTRATION RATE ML/MIN/1.73 SQ M.PREDICTED 94.7 mL/min/1.73m*2 Normal >60.0 [facility] Comment on above: Result Comment: [facility]???s estimated glomerular filtration rate (eGFR) will [...] individuals. Performed By: #### L [id number] #### [facility] ([facility]) [address] [place] [address] Glucose [Mass/Vol] 75 mg/dL Normal 70-100 [facility] Comment on above: Performed By: #### L [id number] #### [facility] ([facility] [address] [place] [address] Potassium [Moles/Vol] 3.5 mmol/L Normal 3.5-5.1 [facility] Comment on above: Performed By: #### L [id number] #### [facility] ([facility] [address] [place] [address] Protein [Mass/Vol] 5.6 g/dL Low 6.0-8.3 [facility] Comment on above: Performed By: #### L [id number] #### [facility] ([facility] [address] [place] [address] Sodium [Moles/Vol] 141 mmol/L Normal 136-145 [facility] Comment on above: Performed By: #### L [id number] #### [facility] ([facility]) [address] [place] [address] Urea nitrogen [Mass/Vol] 12 mg/dL Normal 7-25 [facility] Comment on above: Performed By: #### L [id number] #### [facility] ([facility]) [address] [place] [address] UREA NITROGEN/CREATININE (MASS RATIO) IN SER/PLAS 17.1 Normal [facility] Comment on above: Performed By: #### L [id number] #### [facility] ([facility]) [address] [place] [address] CONSULTon 04-26-2023 CONSULT ------ -- Attestation signed [...] Teaching Physician's Revisions: none Ofe Little MD MS Cardiology -- Reason For Consult NSTEMI, 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 female who was admittied initailly at [facility] for NSTEMI. PMHx of CAD s/p CABG x4 (PARKER-LAD, L radial-OM 1, SVG-OM2, SVG-PDA) in 05/07/2017, HLD, smoker, HFmrEF, unable to reliably assess NYHA at this point, diabetes mellitus. Patient had initially presented to [place] by ambulance after he was found on [...] q8h PRN (more content not included)... Normal [facility] HEMOGLOBIN A1Con 04-26-2023 Glucose [Mass/Vol] 212 mg/dL Normal [facility] Comment on above: Performed By: #### L [id number] #### [facility] ([facility]) [address] [place] [address] HbA1c (Bld) [Mass fraction] 9.0 % High 4.0-6.0 [facility] Comment on above: Performed By: #### L [id number] #### [facility] ([facility]) [address] [place] [address] HEPARIN LEVELon 04-26-2023 HEPARIN UNFRACTIONATED (U/ML) IN PPP BY CHROMOGENIC METHOD 0.27 IU/mL Low 0.3-0.7 [facility] Comment on above: Order Comment: Basel ine aPTT before initiating heparin infusion. Result Comment: [place] roxaban and Apixaban will interfere with the anti Xa assay used to monitor UFH and LMWH. Performed By: #### L [id number] #### [facility] ([facility]) [address] [place] [address] LIPID PANELon 04-26-2023 CHOL/HDL 2.5 mg/dL Normal [facility] Comment on above: Performed By: #### L [id number] #### [facility] ([facility]) [address] [place] [address] Cholesterol [Mass/Vol] 85 mg/dL Low 120-200 [facility] Comment on above: Performed By: #### L [id number] #### [facility] ([facility]) [address] [place] [address] Magnesium [Mass/Vol] 67 mg/dL Normal 40-149 [facility] Comment on above: Result Comment: TRIG LYCERIDE REFERENCE RANGE: 20 YEARS AND OLDER CARDIOVASCULAR RISK LESS THAN 150 mg/dL LOW RISK 150 TO 199 mg/dL BORDERLINE RISK 200 mg/dL AND GREATER HIGH RISK Performed By: #### L [id number] #### [facility] ([facility]) [address] [place] [address] Magnesium [Mass/Vol] 38 mg/dL Normal 0-160 [facility] Comment on above: Performed By: #### L [id number] #### [facility] ([facility]) [address] [place] [address] Magnesium [Mass/Vol] 34 mg/dL Normal 23-92 [facility] Comment on above: Performed By: #### L [id number] #### [facility] ([facility]) [address] [place] [address] NON HDL CHOL. (LDL+VLDL) 51 Normal [facility] Comment on above: Performed By: #### L [id number] #### [facility] ([facility]) [address] [place] [address] TOTAL VLDL-C 13 mg/dL Normal 0-40 [facility] Comment on above: Performed By: #### L [id number] #### [facility] ([facility]) [address] [place] [address] MAGNESIUMon 04-26-2023 Magnesium [Mass/Vol] 0.6 mg/dL Invalid Interpretation Code 1.9-2.7 [facility] Comment on above: Performed By: #### L [id number] #### [facility] ([facility]) [address] [place] [address] NURSNOTEon 04-26-2023 NURSNOTE Labs ordered at 1400 , nurse called lab x4 as no current labs completed. Nurse assured labs will be drawn shortly. Normal [facility] NURSNOTE Critical trop 2.45 a nd mag 0.6 reported by lab, admitting MD made aware. No current orders. Normal [facility] POCT GLUCOSE METER UNSOLICIT ED RESULTSon 04-26-2023 Glucose [Mass/Vol] 62 mg/dL Low 70-105 [facility] Comment on above: Order Comment: Waive d Testing in the ED is performed under the ED CLIA certificate #[id number]. Result Comment: [email or web address] [email or web address] Performed By: #### L [id number] ####[facility] ([facility])[address] [place] [address] Glucose [Mass/Vol] 70 mg/dL Normal 70-105 [facility] Comment on above: Order Comment: Waive d Testing in the ED is performed under the ED CLIA certificate #[id number]. Result Comment: [email or web address] [email or web address] Performed By: #### L [id number] #### [facility] ([facility]) [address] [place] [address] Glucose [Mass/Vol] 78 mg/dL Normal 70-105 [facility] Comment on above: Order Comment: Waive d Testing in the ED is performed under the ED CLIA certificate #[id number]. Result Comment: [email or web address] [email or web address] Performed By: #### L [id number] #### [facility] ([facility]) [address] [place] [address] TROPONIN Ion 04-26-2023 Troponin I.cardiac [Mass/Vol] 2.45 ng/mL Critically high 0.00-0.04 [facility] Comment on above: Performed By: #### L [id number] #### [facility] ([facility]) [address] [place] [address] TSH3 REFLEX TO FT4on 023 THYROTROPIN (MIU/L) IN SER/PLAS BY DETECTION LIMIT <= 0.05 MIU/L 1.82 mIU/L Normal 0.34-5.60 [facility] Comment on above: Performed By: #### L [id number] #### [facility] ([facility]) [address] [place] [address] Basic Metabolic Panelon 02-21 Anion gap [Moles/Vol] 9 mmol/L 9 - 17 mmol/L [facility] Calcium [Mass/Vol] 8.8 mg/dL 8.6 - 10. 4 mg/dL [facility] Chloride [Moles/Vol] 106 mmol/L 98 - 10 7 mmol/L [facility] CO2 [Moles/Vol] 25 mmol/L 20 - 31 mmol/L [facility] Creatinine [Mass/Vol] 0.83 mg/dL 0.50 - 0.90 mg/dL [facility] GFR/1.73 sq M.predicted MDRD (S/P/Bld) [Vol rate/Area] - PINF [facility] Comment on above: These results are not [...] 152 mg/dL High 70 - 99 mg/dL [facility] Potassium [Moles/Vol] 4.9 mmol/L 3.7 - 5.3 mmol/L [facility] Sodium [Moles/Vol] 140 mmol/L 135 - 144 mmol/L [facility] Urea nitrogen [Mass/Vol] 15 mg/dL 8 - 23 mg/dL [facility] Urea nitrogen/Creatinine [Mass ratio] 18 mg/mg 9 - 20 [facility] CBC with Auto Differentialon 03-11-2023 Basophils (Bld) [#/Vol] 0.04 10*3/uL [facility] Basophils/100 WBC (Bld) 0 % 0 - 2 % [facility] Eosinophils (Bld) [#/Vol] 0.17 10*3/uL [facility] Eosinophils/100 WBC (Bld) 2 % 1 - 4 % [facility] Erythrocyte distribution width (RBC) [Ratio] 13.2 % 11.8 - 14.4 % [facility] Hematocrit (Bld) [Volume fraction] 38.5 % 36.3 - 47.1 % [facility] Hemoglobin (Bld) [Mass/Vol] 12.5 g/dL 11.9 - 15.1 g/dL [facility] Immature granulocytes (Bld) [#/Vol] 0.10 10*3/uL [facility] Immature granulocytes/100 WBC (Bld) 1 % High 0 [facility] Lymphocytes/100 WBC (Bld) 19 % Low 24 - 43 % [facility] Lymphocytes/100 WBC (Bld) 1.88 % [facility] MCH (RBC) [Entitic mass] 29.1 pg 25.2 - 33.5 pg [facility] M[facility]C (RBC) [Mass/Vol] 32.5 g/dL 28.4 - 34.8 g/dL [facility] MCV (RBC) [Entitic vol] 89.7 fL 82.6 - 102.9 fL [facility] Monocytes/100 WBC (Bld) 9 % 3 - 12 % [facility] Monocytes/100 WBC (Bld) 0.90 % [facility] Neutrophils/100 WBC (Bld) 69 % High 36 - 65 % [facility] NRBC Automated 0.0 0.0 per 100 WBC [facility] Platelet mean volume (Bld) [Entitic vol] 10.2 fL 8.1 - 13.5 fL [facility] Platelets (Bld) [#/Vol] 327 10*3/uL [facility] RBC (Bld) [#/Vol] 4.29 10*6/uL 3.95 - 5.1 1 m/uL [facility] Segmented neutrophils/100 WBC (Bld) 6.72 % [facility] WBC other (Bld) [#/Vol] 9.8 [facility] Microscopic Urinalysison Bacteria LM Ql (Urine sed) 3+ Abnormal None [facility] Epithelial cells LM.HPF (Urine sed) [#/Area] 10 TO 20 [facility] RBC LM.HPF (Urine sed) [#/Area] 0 TO 2 [facility] WBC LM.HPF (Urine sed) [#/Area] 10 TO 20 [facility] No Panel Informationon 03-11 Interpretation and review of laboratory results Abnormal [facility] Urinalysis with Reflex to Cu ltureon 03-11-2023 Bilirubin Ql (U) Negative NEGATIVE [facility] Clarity (U) Clear Clear [facility] Color (U) Yellow Yellow [facility] Glucose Test strip (U) [Mass/Vol] Negative NEGATIVE [facility] Hemoglobin Auto test strip Ql (U) Negative NEGATIVE [facility] Ketones (U) [Mass/Vol] Negative NEGATIVE [facility] Leukocyte esterase Test strip Ql (U) MODERATE Abnormal NEGATIVE [facility] Nitrite Ql (U) Positive Abnormal NEGATIVE [facility] pH (U) 7.5 [pH] 5.0 - 9.0 [facility] Protein (U) [Mass/Vol] 1+ Abnormal NEGATIVE [facility] Specific gravity (U) [Rel density] 1.015 1.010 - 1.020 [facility] Urobilinogen Qn (U) Normal Normal [facility] Cult,Urineon 03-09-2023 Cult,Urine Specimen Description .URINE Culture NO SIGNIFICANT GROWTH Report Status FINAL 03/09/2023 Normal [facility] Comment on above: Performed By: #### U RC #### [facility] [address] [place] [address] Children'S Service Worker: Joey Aguilar MD Laboratory - Microbiology an d Antimicrobial susceptibilityon 03-07-2023 Bacteria identified Cx Nom (U) See Note [facility] Comment on above: Note: Specimen Descr iption .URINECulture NO SIGNIFICANT GROWTHReport Status FINAL 03/09/2023Responsible Observer: KALEB KLEIN ([id number]) No Panel Informationon 03-07 Reported Physicians [facility] Comment on above: Note: Reported Physi cians:Ordering: Sonya PosadaAttending: Hayley PosadaieReferring: Sonya Posada POINT OF CARE GLUCOSEon 12-23 Glucose [Mass/Vol] 177 mg/dL Critically high 74-106 [facility] Comment on above: Performed By: #### P OCGLUC ####[facility] [id number] [place], [place] [address]Ld. Antonella Medrano XR KNEE RT 3Von 01-10-2023 XR KNEE RT 3V Normal [facility] CBC AUTO DIFFon 01-06-2023 BASO # 0.0 103/ul Normal 0.0-0.1 [facility] Comment on above: Performed By: #### C BC ####[facility] Vbzedsotdo9240 [place] [id number]. Antonella Medrano Basophils/100 WBC (Bld) 0.4 % Normal 0.2-2.0 [facility] Comment on above: Performed By: #### C BC ####[facility] Nnfrrkvmbn[address] [place], [place] [address]Dr. Antonella Medrano EO # 0.2 103/ul Normal 0.0-0.7 [facility] Comment on above: Performed By: #### C BC ####[facility] Doimaxiilg17[address] [place], [place] [address]Dr. Antonella Medrano Eosinophils/100 WBC (Bld) 1.8 % Normal 0.9-7.0 [facility] Comment on above: Performed By: #### C BC ####[facility] Messiusdge2185[address] [place], [place] [address]Dr. Antonella Medrano Erythrocyte distribution width (RBC) [Ratio] 13.9 % Normal 11.0-15.0 [facility] Comment on above: Performed By: #### C BC ####[facility] Hgbxfovaty2390[address] [place], [place] [address]Dr. Antonella Medrano Hematocrit (Bld) [Volume fraction] 36.0 % Normal 36.0-48.0 [facility] Comment on above: Performed By: #### C BC ####[facility] Qqfrarcdoz03[address] [place], [place] [address]Dr. Antonella Medrano Hemoglobin (Bld) [Mass/Vol] 12.2 g/dL Normal 12.0-16.0 [facility] Comment on above: Performed By: #### C BC ####[facility] Olgimcwtcp735[address] [place], [place] [address]Dr. Antonella Medrano IG # 0.12 10e3/ul Critically high 0.00-0.03 [facility] Comment on above: Performed By: #### C BC ####[facility] Ohbgxxfofp4901 [place] [id number]. Antonella Medrano IG % 1.3 % Critically high 0.0-0.5 [facility] Comment on above: Performed By: #### C BC ####[facility] Jlhzauzhgx5079 [place] [id number]. Antonella Medrano LYMPH # 2.3 103/ul Normal 1.2-3.8 [facility] Comment on above: Performed By: #### C BC ####[facility] Lqlkgysrbo2434 [place] [id number]. Antonella Medrano Lymphocytes/100 WBC (Bld) 25.8 % Normal 20.5-60.0 [facility] Comment on above: Performed By: #### C BC ####[facility] Getnqvcyhc73[address] [place] [address]Dr. Antonella Medrano MANUAL DIFF REQ NO Normal [facility] Comment on above: Performed By: #### C BC ####[facility] Yxoecgeyts[address] [place], [place] [id number]. Antonella Medrano MCH (RBC) [Entitic mass] 30.0 pg Normal 26.7-34.0 [facility] Comment on above: Performed By: #### C BC ####[facility] Nrxebctcww[address] [place], [place] [address]Dr. Antonella Medrano MCHC (RBC) [Mass/Vol] 33.9 g/dL Normal 29.9-35.2 [facility] Comment on above: Performed By: #### C BC ####[facility] Xbhniubvxe412[address] [place], [place] [address]Dr. Antonella Medrano MCV (RBC) [Entitic vol] 88.5 fL Normal 81.0-99.0 [facility] Comment on above: Performed By: #### C BC ####[facility] Pnjuwweojh9253 [place] [id number]. Antonella Mitchell MONO # 1.0 103/ul Critically high 0.3-0.8 [facility] Comment on above: Performed By: #### C BC ####[facility] Cuyzqkggfu9695 [place] [id number]. Antonella Medrano Monocytes/100 WBC (Bld) 10.6 % Normal 1.7-12.0 [facility] Comment on above: Performed By: #### C BC ####[facility] Momyljpzdw4188 [place] [id number]. Antonella Medrano NEUT # 5.4 103/ul Normal 1.4-6.5 [facility] Comment on above: Performed By: #### C BC ####[facility] Mokhttphgf0548 [place] [id number]. Antonella Medrano Neutrophils/100 WBC (Bld) 60.1 % Normal 43.0-75.0 [facility] Comment on above: Performed By: #### C BC ####[facility] Igorezcloi0448 [place] [id number]. Antonella Medrano Platelet mean volume (Bld) [Entitic vol] 10.6 fL Normal 9.5-13.5 [facility] Comment on above: Performed By: #### C BC ####[facility] Mjuinajwbh6788 [place] [id number]. Antonella Medrano PLT 306 103/ul Normal 150-450 [facility] Comment on above: Performed By: #### C BC ####[facility] Dczwplquzz9692 [place] [id number]. Antonella Medrano RBC 4.07 106/ul Critically low 4.20-5.40 [facility] Comment on above: Performed By: #### C BC ####[facility] Fpgpvmnote0619 [place] [id number]. Antonella Medrano WBC 9.0 103/ul Normal 4.0-11.0 [facility] Comment on above: Performed By: #### C BC ####[facility] Okqukacoar8823 [place] [id number]. Antonella Medrano POINT OF CARE GLUCOSEon 04- Glucose [Mass/Vol] 101 mg/dL Normal 74-106 [facility] Comment on above: Performed By: #### P OCGLUC ####[facility] Hyudpuguzv7864 [place] [address]Dr. Antonella Medrano PROF 14(COMP METB)on 023 Albumin [Mass/Vol] 2.7 g/dL Critically low 3.4-5.0 [facility] [place] Comment on above: Performed By: #### C MARLEY, HSTROPN ####[facility] Tgobvwnico0943 [place] [address]Dr. Antonella Medrano Albumin/Globulin [Mass ratio] 0.8 {ratio} Normal [facility] Comment on above: Performed By: #### C MARLEY, HSTROPN ####[facility] Vkadjeeqpn4814 [place] [address]Dr. Antonella Medrano ALP [Catalytic activity/Vol] 95 U/L Normal 46-116 [facility] Comment on above: Performed By: #### C MARLEY, HSTROPN ####[facility] Djkqkvgqtj87[address] [place], [place] [address]Dr. Antonella Medrano ALT [Catalytic activity/Vol] 15 U/L Normal 14-59 [facility] Comment on above: Performed By: #### C MARLEY, HSTROPN ####[facility] Gocqbyzaqq44[address] [place], [place] [address]Dr. Antonella Medrano Anion gap [Moles/Vol] 12.9 mmol/L Normal [facility] Comment on above: Performed By: #### C MP, HSTROPN ####[facility] Ragjnvaflo1654[address] [place], [place] [address]Dr. Antonella Medrano AST [Catalytic activity/Vol] 13 U/L Critically low 15-37 [facility] Comment on above: Performed By: #### C MP, HSTROPN ####[facility] Nxwmxxlnna84[address] [place], [place] [address]Dr. Antonella Medrano Bilirubin [Mass/Vol] 0.2 mg/dL Normal 0.2-1.0 [facility] Comment on above: Performed By: #### C MP, HSTROPN ####[facility] Pgtdopugvq27[address] [place], [place] [address]Dr. Antonella Medrano Calcium [Mass/Vol] 8.6 mg/dL Normal 8.5-10.1 [facility] Comment on above: Performed By: #### C MARLEY, HSTROPN ####[facility] Pejuiwwdtm9[address] [place] [address]Dr. Antonella Medrano Chloride [Moles/Vol] 106 mmol/L Normal 98-107 [facility] Comment on above: Performed By: #### C MARLEY, HSTROPN ####[facility] Aqbfgilveg3303 [place] [address]Dr. Antonella Medrano CO2 [Moles/Vol] 28.1 mmol/L Normal 21.0-32.0 [facility] Comment on above: Performed By: #### C MARLEY, HSTROPN ####[facility] Tztovdcycn3021 [place] [address]Dr. Antonella Medrano Creatinine [Mass/Vol] 1.05 mg/dL Critically high 0.55-1.02 [facility] Comment on above: Performed By: #### C MARLEY, HSTROPN ####[facility] Cvufdclyfh7067 [place] [address]Dr. Antonella Medrano EGFR-AF IVORIAN >60 Normal >=60 [facility] Comment on above: Performed By: #### C MARLEY, HSTROPN ####[facility] Bcfsmevhgp6963 [place] [address]Dr. Antonella Medrano EGFR-NON AF IVORIAN 52 mL/min/1.73m2 Critically low >=60 [facility] Comment on above: Performed By: #### C MARLEY, HSTROPN ####[facility] Hmdaiitkbh9850 [place] [address]Dr. Antonella Medrano Globulin (S) [Mass/Vol] 3.5 g/dL Normal [facility] Comment on above: Performed By: #### C MARLEY, HSTROPN ####[facility] Gimskfxuen3143 [place] [address]Dr. Antonella Medrano Glucose [Mass/Vol] 96 mg/dL Normal 74-106 [facility] Comment on above: Performed By: #### C MARLEY, HSTROPN ####[facility] Tzodenskdx0443 [place] [address]Dr. Antonella Medrano Potassium [Moles/Vol] 4.0 mmol/L Normal 3.5-5.1 [facility] Comment on above: Performed By: #### C MP, HSTROPN ####[facility] Gxddxolydl3621 [place] [address]Dr. Antonella Medrano Protein [Mass/Vol] 6.2 g/dL Critically low 6.4-8.2 [facility] Comment on above: Performed By: #### C MP, HSTROPN ####[facility] Fhqbqeoqar2327 [place] [address]Dr. Mariafilemon Medrano Sodium [Moles/Vol] 143 mmol/L Normal 136-145 [facility] Comment on above: Performed By: #### C MP, HSTROPN ####[facility] Dxebgvhjjf9593 [place] [address]Dr. Mariafilemon Medrano Urea nitrogen [Mass/Vol] 22.0 mg/dL Critically high 7.0-18.0 [facility] Comment on above: Performed By: #### C MP, HSTROPN ####[facility] Zglmbzqrmb2720 [place] [address]Dr. Mariafilemon Medrano Urea nitrogen/Creatinine [Mass ratio] 21.0 mg/mg Normal [facility] Comment on above: Performed By: #### C MP, HSTROPN ####[facility] Whfsbcvjto9590 [place] [address]Dr. Antonella Mitchell TROPONIN, HIGH SENSITIVITYon 01-06-2023 HSTROP 48.1 pg/mL Normal 4.0-51.3 [facility] Comment on above: Result Comment: CUT- OFF POINTS HAVE BEEN ESTABLISHED BASED ON THE FOURTH UNIVERSAL DEFINITIONS OF MYOCARDIALINFARCTION. THE UPPER REFERENCE LIMIT (URL) OF TROPONIN, DEFINED THE 99TH PERCENTILE OFcTnI DISTRIBUTION IN A REFERENCE POPULATION, HAS BEEN CONFIRMED THE DECISION THRESHOLDFOR [place] DIAGNOSIS. Performed By: #### C MP, HSTROPN ####[facility] Imvlrcydav2512 [place] [address]DrGerman Medrano XR PELVIS 1_2 VIEWSon 2022 XR PELVIS 1_2 VIEWS Normal [facility] CULTURE URINEon 01-03-2023 CULTURE URINE Culture Observations : GREATER THAN TWO ORGANISMS PRESENT. PLEASE RESUBMIT CLEAN CATCH MID-STREAM URINE IF CLINICALLY INDICATED. Normal [facility] Comment on above: Performed By: #### U RCX ####[facility] Pixhsnfbwr9[address] [place], [place] [address]DrGerman Medrano CBC AUTO DIFFon 01-02-2023 BASO # 0.0 103/ul Normal 0.0-0.1 [facility] Comment on above: Performed By: #### C BC ####[facility] Vbdzbsxxxu6[address] [place], [place] [address]DrGerman Medrano Basophils/100 WBC (Bld) 0.4 % Normal 0.2-2.0 [facility] Comment on above: Performed By: #### C BC ####[facility] Vuhurnbcbl528[address] [place], [place] [address]DrGerman Medrano EO # 0.2 103/ul Normal 0.0-0.7 [facility] Comment on above: Performed By: #### C BC ####[facility] Ujptcypxqw8288[address] [place], [place] [address]DrGerman Medrano Eosinophils/100 WBC (Bld) 3.0 % Normal 0.9-7.0 [facility] Comment on above: Performed By: #### C BC ####[facility] Hiwkqabcui1834[address] [place], [place] [address]DrGerman Medrano Erythrocyte distribution width (RBC) [Ratio] 14.0 % Normal 11.0-15.0 [facility] Comment on above: Performed By: #### C BC ####[facility] Bqcgatwzoi9319[address] [place], [place] [address]DrGerman Medrano Hematocrit (Bld) [Volume fraction] 37.5 % Normal 36.0-48.0 [facility] Comment on above: Performed By: #### C BC ####[facility] Ihfnspkgwz6232[address] [place], [place] [address]DrGerman Medrano Hemoglobin (Bld) [Mass/Vol] 12.1 g/dL Normal 12.0-16.0 [facility] Comment on above: Performed By: #### C BC ####[facility] Xmmdzdnkkv3663 [place] [address]DrGerman Antonella Medrano IG # 0.10 10e3/ul Critically high 0.00-0.03 [facility] Comment on above: Performed By: #### C BC ####[facility] Jtbwhnoeda4340 [place] [address]DrGerman Mariafilemon Medrano IG % 1.3 % Critically high 0.0-0.5 [facility] Comment on above: Performed By: #### C BC ####[facility] Cjuaovdncr214[address] [place], [place] [address]DrGerman Medrano LYMPH # 2.1 103/ul Normal 1.2-3.8 [facility] Comment on above: Performed By: #### C BC ####[facility] Zxydyskuhb6266[address] [place], [place] [address]DrGerman Medrano Lymphocytes/100 WBC (Bld) 27.4 % Normal 20.5-60.0 [facility] Comment on above: Performed By: #### C BC ####[facility] Ujjurzbpyq5575[address] [place], [place] [address]DrGerman Mariafilemon Medrano MANUAL DIFF REQ NO Normal [facility] Comment on above: Performed By: #### C BC ####[facility] Yefsexhduk2187[address] [place], [place] [address]DrGerman Medrano MCH (RBC) [Entitic mass] 28.6 pg Normal 26.7-34.0 [facility] Comment on above: Performed By: #### C BC ####[facility] Iujihdijon4117[address] [place], [place] [address]DrGerman Medrano MCHC (RBC) [Mass/Vol] 32.3 g/dL Normal 29.9-35.2 [facility] Comment on above: Performed By: #### C BC ####[facility] Wwxmboxuog0529[address] [place], [place] [address]DrGerman Medrano MCV (RBC) [Entitic vol] 88.7 fL Normal 81.0-99.0 [facility] Comment on above: Performed By: #### C BC ####[facility] Bbdrblxfav5834 [place] [address]DrGerman Sifuentesfilemon Mitchell MONO # 0.7 103/ul Normal 0.3-0.8 [facility] Comment on above: Performed By: #### C BC ####[facility] Egziayyged4465 [place] [address]DrGerman Medrano Monocytes/100 WBC (Bld) 8.6 % Normal 1.7-12.0 [facility] Comment on above: Performed By: #### C BC ####[facility] Pedyvjbasq7727[address] [place], [place] [address]DrGerman Medrano NEUT # 4.6 103/ul Normal 1.4-6.5 [facility] Comment on above: Performed By: #### C BC ####[facility] Kjkklhqpes1896[address] [place], [place] [address]Dr. Antonella Medrano Neutrophils/100 WBC (Bld) 59.3 % Normal 43.0-75.0 [facility] Comment on above: Performed By: #### C BC ####[facility] Vwicnwyell8201[address] [place], [place] [address]DrGerman Medrano Platelet mean volume (Bld) [Entitic vol] 9.9 fL Normal 9.5-13.5 [facility] Comment on above: Performed By: #### C BC ####[facility] Bbpyrldvwa5864[address] [place], [place] [address]Dr. Antonella Medrano PLT 278 103/ul Normal 150-450 [facility] Comment on above: Performed By: #### C BC ####[facility] Yevabgasud032[address] [place], [place] [address]DrGerman Medrano RBC 4.23 106/ul Normal 4.20-5.40 [facility] Comment on above: Performed By: #### C BC ####[facility] Mkrubzutzq2767 [place] [id number] Medrano WBC 7.7 103/ul Normal 4.0-11.0 [facility] Comment on above: Performed By: #### C BC ####[facility] Pbqfoqbypp5074[address] [place], [place] [address]Dr. Antonella Mitchell MAGNESIUMon 01-02-2023 Magnesium [Mass/Vol] 1.3 mg/dL Critically low 1.8-2.4 [facility] Comment on above: Performed By: #### M G ####[facility] Ychghiawhv7534[address] [place], [place] [address]Dr. Antonella Mitchell POINT OF CARE GLUCOSEon 12-22 Glucose [Mass/Vol] 242 mg/dL Critically high 74-106 [facility] Comment on above: Performed By: #### P OCGLUC ####[facility] Ovcpquifbh8770[address] [place], [place] [address]Dr. Antonella Medrano Glucose [Mass/Vol] 307 mg/dL Critically high 74-106 [facility] Comment on above: Performed By: #### P OCGLUC ####[facility] Eqmrqwvjdi0613[address] [place], [place] [address]Dr. Antonella Medrano PROF CHEM 8 (BAS METB)on Anion gap [Moles/Vol] 11.5 mmol/L Normal [facility] Comment on above: Performed By: #### B MP ####[facility] Uykeogbyyk1656 [place] [address]Dr. Antonella Medrano Calcium [Mass/Vol] 8.5 mg/dL Normal 8.5-10.1 [facility] Comment on above: Performed By: #### B MP ####[facility] Dchejobksa1072 [place] [address]Dr. Antonella Medrano Chloride [Moles/Vol] 106 mmol/L Normal 98-107 [facility] Comment on above: Performed By: #### B MP ####[facility] Njkoormlap5[address] [place], [place] [address]Dr. Antonella Medrano CO2 [Moles/Vol] 25.8 mmol/L Normal 21.0-32.0 [facility] Comment on above: Performed By: #### B MP ####[facility] Ajywepwtyj2755[address] [place], [place] [address]Dr. Antonella Medrano Creatinine [Mass/Vol] 0.81 mg/dL Normal 0.55-1.02 [facility] Comment on above: Performed By: #### B MP ####[facility] Kbgbtcayfy024[address] [place], [place] [address]Dr. Antonella Medrano EGFR-AF IVORIAN >60 Normal >=60 [facility] Comment on above: Performed By: #### B MP ####[facility] Jkucwxrbpd0401[address] [place], [place] [address]Dr. Antonella Medrano EGFR-NON AF IVORIAN >60 Normal >=60 [facility] Comment on above: Performed By: #### B MP ####[facility] Gzjwyhoozn173[address] [place], [place] [address]Dr. Antonella Medrano Glucose [Mass/Vol] 185 mg/dL Critically high 74-106 [facility] Comment on above: Performed By: #### B MP ####[facility] Bjvbuwtibb8410[address] [place], [place] [address]Dr. Antonella Medrano Potassium [Moles/Vol] 4.3 mmol/L Normal 3.5-5.1 [facility] Comment on above: Performed By: #### B MP ####[facility] Vglxmqihbq6[address] [place], [place] [address]Dr. Antonella Medrano Sodium [Moles/Vol] 139 mmol/L Normal 136-145 [facility] Comment on above: Performed By: #### B MP ####[facility] Pyswccgubd313[address] [place], [place] [address]Dr. Antonella Medrano Urea nitrogen [Mass/Vol] 17.0 mg/dL Normal 7.0-18.0 [facility] Comment on above: Performed By: #### B MP ####[facility] Dlutesiqzy005[address] [place], [place] [address]Dr. Antonella Medrano Urea nitrogen/Creatinine [Mass ratio] 21.0 mg/mg Normal [facility] Comment on above: Performed By: #### B MP ####[facility] Cwaqymnzec258[address] [place], [place] [address]Dr. Antonella Medrano CBC AUTO DIFFon 01-01-2023 BASO # 0.0 103/ul Normal 0.0-0.1 [facility] Comment on above: Performed By: #### C BC ####[facility] Ndrkctfnio9412 [place] [address]Dr. Antonella Mitchell Basophils/100 WBC (Bld) 0.3 % Normal 0.2-2.0 [facility] Comment on above: Performed By: #### C BC ####[facility] Phxhduzzol821[address] [place], [place] [address]Dr. Antonella Medrano EO # 0.1 103/ul Normal 0.0-0.7 [facility] Comment on above: Performed By: #### C BC ####[facility] Ouhojfkiev8709[address] [place], [place] [address]Dr. Antonella Medrano Eosinophils/100 WBC (Bld) 1.4 % Normal 0.9-7.0 [facility] Comment on above: Performed By: #### C BC ####[facility] Ucxlghalar0766[address] [place], [place] [address]Dr. Antonella Medrano Erythrocyte distribution width (RBC) [Ratio] 13.9 % Normal 11.0-15.0 [facility] Comment on above: Performed By: #### C BC ####[facility] Ouedavpinc2338[address] [place], [place] [address]Dr. Antonella Medrano Hematocrit (Bld) [Volume fraction] 38.0 % Normal 36.0-48.0 [facility] Comment on above: Performed By: #### C BC ####[facility] Urznnwdfcb1359[address] [place], [place] [address]Dr. Antonella Medrano Hemoglobin (Bld) [Mass/Vol] 12.6 g/dL Normal 12.0-16.0 [facility] Comment on above: Performed By: #### C BC ####[facility] Wbqsdfkbbb5686[address] [place], [place] [address]Dr. Antonella Medrano IG # 0.15 10e3/ul Critically high 0.00-0.03 [facility] Comment on above: Performed By: #### C BC ####[facility] Bmiprhujbt2576 [place] [id number]. Antonella Medrano IG % 1.5 % Critically high 0.0-0.5 [facility] Comment on above: Performed By: #### C BC ####[facility] Yelxhcgahk3839 [place] [address]Dr. Antonella Medrano LYMPH # 1.6 103/ul Normal 1.2-3.8 [facility] Comment on above: Performed By: #### C BC ####[facility] Pwryhcwtsv3760[address] [place], [place] [address]Dr. Antonella Medrano Lymphocytes/100 WBC (Bld) 15.5 % Critically low 20.5-60.0 [facility] Comment on above: Performed By: #### C BC ####[facility] Coclxvdvxg299[address] [place], [place] [address]DrGerman Medrano MANUAL DIFF REQ NO Normal [facility] Comment on above: Performed By: #### C BC ####[facility] Hjttmvcsyf2811 [place] [address]Dr. Antonella Mitchell MCH (RBC) [Entitic mass] 29.5 pg Normal 26.7-34.0 [facility] Comment on above: Performed By: #### C BC ####[facility] Wmdddsjorg8066[address] [place], [place] [address]Dr. Antonella Mitchell MCHC (RBC) [Mass/Vol] 33.2 g/dL Normal 29.9-35.2 [facility] Comment on above: Performed By: #### C BC ####[facility] Tfqflbvdqr4[address] [place], [place] [address]DrGerman Mariafilemon Medrano MCV (RBC) [Entitic vol] 89.0 fL Normal 81.0-99.0 [facility] Comment on above: Performed By: #### C BC ####[facility] Lcsuwxpgcs[address] [place], [place] [address]DrGerman Medrano MONO # 0.9 103/ul Critically high 0.3-0.8 [facility] Comment on above: Performed By: #### C BC ####[facility] Vysdsdjlap[address] [place], [place] [address]Dr. Antonella Medrano Monocytes/100 WBC (Bld) 9.4 % Normal 1.7-12.0 [facility] Comment on above: Performed By: #### C BC ####[facility] Imjzmtlsms4342 [place] [address]Dr. Antonella Medrano NEUT # 7.2 103/ul Critically high 1.4-6.5 [facility] Comment on above: Performed By: #### C BC ####[facility] Vjugvocuae2280 [place] [address]Dr. Antonella Medrano Neutrophils/100 WBC (Bld) 71.9 % Normal 43.0-75.0 [facility] Comment on above: Performed By: #### C BC ####[facility] Osnsyklgdt0978 [place] [address]Dr. Antonella Medrano Platelet mean volume (Bld) [Entitic vol] 9.8 fL Normal 9.5-13.5 [facility] Comment on above: Performed By: #### C BC ####[facility] Efagyjndhj1726 [place] [address]Dr. Antonella Medrano PLT 266 103/ul Normal 150-450 [facility] Comment on above: Performed By: #### C BC ####[facility] Wdmpgxymec7717 [place] [address]Dr. Antonella Medrano RBC 4.27 106/ul Normal 4.20-5.40 [facility] Comment on above: Performed By: #### C BC ####[facility] Ckderxorvb[address] [place], [place] [address]Dr. Antonella Medrano WBC 10.0 103/ul Normal 4.0-11.0 [facility] Comment on above: Performed By: #### C BC ####[facility] Bdofkzkrdg20[address] [place], [place] [address]Dr. Antonella Medrano Covid-19 PCR (CVDTB)on 12-22 SARS-CoV-2 (COVID-19) RNA TAISHA+probe Ql (Unsp spec) Not detected Normal NOT DETECTED [facility] Comment on above: Result Comment: When [...] for this test is supported by the [place] of Health and Human Service's declaration that [...] longer be used). Performed By: #### [facility] ####[facility] Sjhurtwgps032[address] [place], [place] [address]Dr. Antonella Medrano ER URINE PROFILEon 3 Bilirubin Ql (U) Negative Normal NEGATIVE [facility] Comment on above: Performed By: #### LATA CLARKRO ####[facility] Lajphriart[address] [place], [place] [address]Dr. Antonella Medrano Clarity (U) CLEAR Normal CLEAR [facility] Comment on above: Performed By: #### LATA CLARKRO ####[facility] Uamxgkqxzh26[address] [place], [place] [address]Dr. Antonella Medrano Color (U) LT. YELLOW Normal YELLOW [facility] Comment on above: Performed By: #### Daniela LEE UMICRO ####[facility] Jbirvnahce5840[address] [place], [place] [address]Dr. Antonella Medrano ERUAHD A micrscopic examina tion will be performed if indicated. Normal [facility] Comment on above: Performed By: #### HEAVENLY CLARKICRO ####[facility] Ctsfnnoopn7584[address] [place], [place] [address]Dr. Antonella Medrano Glucose Ql (U) 100 mg/dl Abnormal NEGATIVE [facility] Comment on above: Performed By: #### HALEY CLARK ####[facility] Bpcegbuscq3495 [place] [address]Dr. Antonella Medrano Hemoglobin Ql (U) TRACE-INTACT Abnormal NEGATIVE [facility] Comment on above: Performed By: #### LATA CLARKRO ####[facility] Hkzdmukoum3870 [place] [address]Dr. Antonella Medrano Ketones Ql (U) Negative Normal NEGATIVE [facility] Comment on above: Performed By: #### LATA CLARKRO ####[facility] Tmaxkjeeco4412[address] [place], [place] [address]Dr. Antonella Medrano LEUKOCYTES MODERATE Abnormal NEGATIVE [facility] Comment on above: Performed By: #### HALEY CLARK ####[facility] Qejkzbbmfn9216[address] [place], [place] [address]Dr. Antonella Medrano Nitrite Ql (U) Negative Normal NEGATIVE [facility] Comment on above: Performed By: #### LATA CLARKRO ####[facility] Ggknvfhpql8287[address] [place], [place] [address]Dr. Antonella Medrano pH (U) 5.5 [pH] Normal 5-9 [facility] Comment on above: Performed By: #### HALEY CLARK ####[facility] Uzaiwnwhpn400[address] [place], [place] [address]Dr. Antonella Medrano SPEC GRAVITY 1.010 Normal 1.005-<=1.0 25 [facility] Comment on above: Performed By: #### LATA CLARKRO ####[facility] Isbklckrzl9768[address] [place], [place] [address]Dr. Antonella Medrano UA PROTEIN TRACE Normal NEGATIVE/ TRACE [facility] Comment on above: Performed By: #### LATA CLARKRO ####[facility] Ppjbzhsbbu0[address] [place], [place] [address]Dr. Antonella Medrano UR MICRO IND INDICATED Normal [facility] Comment on above: Performed By: #### LATA CLARKRO ####[facility] Fbuogbnqzx5910[address] [place], [place] [address]Dr. Antonella Medrano Urobilinogen Qn (U) 0.2 {Oleg'U}/dL Normal 0.2 - 1. 0 [facility] Comment on above: Performed By: #### E HALEY LEE ####[facility] Ljjiwbywrw9938 [place] [address]Dr. Antonella Medrano MAGNESIUMon 01-01-2023 Magnesium [Mass/Vol] 0.9 mg/dL Critically low 1.8-2.4 [facility] Comment on above: Performed By: #### M G ####[facility] Ywyheebskn7280[address] [place], [place] [address]Dr. Antonella Medrano POINT OF CARE GLUCOSEon 12-22 Glucose [Mass/Vol] 114 mg/dL Critically high 74-106 [facility] Comment on above: Performed By: #### P OCGLUC ####[facility] Ydnkesggjx7881 [place] [address]Dr. Antonella Medrano Glucose [Mass/Vol] 133 mg/dL Critically high 74-106 [facility] Comment on above: Performed By: #### P OCGLUC ####[facility] Bqchdhofed1001 [place] [address]Dr. Antonella Medrano PROF 14(COMP METB)on 023 Albumin [Mass/Vol] 2.5 g/dL Critically low 3.4-5.0 [facility] Comment on above: Performed By: #### C MP ####[facility] Aqpmfxdxba9990[address] [place], [place] [address]Dr. Antonella Medrano Albumin/Globulin [Mass ratio] 0.7 {ratio} Normal [facility] Comment on above: Performed By: #### C MP ####[facility] Nlrorgvmwg6505 [place] [address]Dr. Antonella Medrano ALP [Catalytic activity/Vol] 97 U/L Normal 46-116 [facility] Comment on above: Performed By: #### C MP ####[facility] Yhsbsibvqw1648 [place] [address]Dr. Antonella Medrano ALT [Catalytic activity/Vol] 15 U/L Normal 14-59 [facility] Comment on above: Performed By: #### C MP ####[facility] Rrvqnhrtzj6576 [place] [address]Dr. Antonella Medrano Anion gap [Moles/Vol] 14.4 mmol/L Normal Th e [facility] Comment on above: Performed By: #### C MP ####[facility] Tjpntcobwt0414 [place] [address]Dr. Antonella Medrano AST [Catalytic activity/Vol] 11 U/L Critically low 15-37 [facility] Comment on above: Performed By: #### C MP ####[facility] Wfjvaqoehm[address] [place], [place] [address]Dr. Antonella Medrano Bilirubin [Mass/Vol] 0.2 mg/dL Normal 0.2-1.0 [facility] Comment on above: Performed By: #### C MP ####[facility] Xxnryrwsdj2832[address] [place], [place] [address]Dr. Antonella Medrano Calcium [Mass/Vol] 8.6 mg/dL Normal 8.5-10.1 [facility] Comment on above: Performed By: #### C MP ####[facility] Jiuganypmq0190[address] [place], [place] [address]Dr. Antonella Medrano Chloride [Moles/Vol] 105 mmol/L Normal 98-107 [facility] Comment on above: Performed By: #### C MP ####[facility] Misqnmznyf2595[address] [place], [place] [address]Dr. Antonella Medrano CO2 [Moles/Vol] 26.8 mmol/L Normal 21.0-32.0 [facility] Comment on above: Performed By: #### C MP ####[facility] Unphjvionb7818[address] [place], [place] [address]Dr. Antonella Medrano Creatinine [Mass/Vol] 0.83 mg/dL Normal 0.55-1.02 [facility] Comment on above: Performed By: #### C MP ####[facility] Qwqnrrjzwi5716[address] [place], [place] [address]Dr. Antonella Medrano EGFR-AF IVORIAN >60 Normal >=60 [facility] Comment on above: Performed By: #### C MP ####[facility] Qucbjoyozv0102 [place] [id number]. Antonella Medrano EGFR-NON AF IVORIAN >60 Normal >=60 [facility] Comment on above: Performed By: #### C MP ####[facility] Cgcgxhdjvt6615 [place] [address]Dr. Antonella Medrano Globulin (S) [Mass/Vol] 3.4 g/dL Normal [facility] Comment on above: Performed By: #### C MP ####[facility] Dihdyljbfn9062 [place] [address]Dr. Antonella Medrano Glucose [Mass/Vol] 148 mg/dL Critically high 74-106 [facility] Comment on above: Performed By: #### C MP ####[facility] Ealqvvgmue8489[address] [place], [place] [address]Dr. Antonella Medrano Potassium [Moles/Vol] 4.2 mmol/L Normal 3.5-5.1 [facility] Comment on above: Performed By: #### C MP ####[facility] Pgpqukuank4704[address] [place], [place] [address]Dr. Antonella Medrano Protein [Mass/Vol] 5.9 g/dL Critically low 6.4-8.2 [facility] Comment on above: Performed By: #### C MP ####[facility] Vopidlsakg0790[address] [place], [place] [address]Dr. Antonella Medrano Sodium [Moles/Vol] 142 mmol/L Normal 136-145 [facility] Comment on above: Performed By: #### C MP ####[facility] Asxhbxuyul977[address] [place], [place] [address]Dr. Antonella Medrano Urea nitrogen [Mass/Vol] 21.0 mg/dL Critically high 7.0-18.0 [facility] Comment on above: Performed By: #### C MP ####[facility] Sxcdapkgrk7820[address] [place], [place] [address]Dr. Antonella Medrano Urea nitrogen/Creatinine [Mass ratio] 25.3 mg/mg Normal [facility] Comment on above: Performed By: #### C MP ####[facility] Dwcemkvaeq2076[address] [place], [place] [address]Dr. Antonella Medrano URINE MICROSCOPIC ONLYon BACTERIA TRACE Abnormal NONE SEEN [facility] Comment on above: Performed By: #### HALEY CLARK ####[facility] Qqjnblowin5396[address] [place], [place] [address]Dr. Antonella Medrano Bacteria identified Cx Nom (U) INDICATED Normal [facility] Comment on above: Performed By: #### LATA CLARKRO ####[facility] Dmvkzybcsr7355[address] [place], [place] [address]Dr. Antonella Medrano CAST NONE SEEN Normal NONE SEEN [facility] Comment on above: Performed By: #### HALEY CLARK ####[facility] Dpvvctlexs6639[address] [place], [place] [address]Dr. Antonella Medrano Crystals LM Nom (Urine sed) NONE SEEN Normal NONE SEEN [facility] Comment on above: Performed By: #### HALEY CLARK ####[facility] Fcgobuvgng5224[address] [place], [place] [address]Dr. Antonella Medrano Epithelial cells LM Ql (Urine sed) RARE Normal NONE SEEN /RARE [facility] Comment on above: Performed By: #### HALEY CLARK ####[facility] Uusqttlsrn[address] [place], [place] [address]Dr. Antonella Medrano MUCOUS NONE SEEN Normal NONE SEEN [facility] Comment on above: Performed By: #### HALEY CLARK ####[facility] Evqrgteked2420[address] [place], [place] [address]Dr. Antonella Medrano RBC 2-5 Abnormal 0-2 [facility] Comment on above: Performed By: #### LATA CLARKRO ####[facility] Afpzmzdugo69032[address] [place], [place] [address]Dr. Antonella Medrano WBC 10-20 Abnormal NONE SEEN [facility] Comment on above: Performed By: #### HALEY CLARK ####[facility] Crendusyml1439[address] [place], [place] [address]Dr. Antonella Medrano CBC AUTO DIFFon 11-13-2022 BASO # 0.0 103/ul Normal 0.0-0.1 [facility] Comment on above: Performed By: #### C BC ####[facility] Txjwvkxmvs2004[address] [place], [place] [address]Dr. Antonella Medrano Basophils/100 WBC (Bld) 0.4 % Normal 0.2-2.0 [facility] Comment on above: Performed By: #### C BC ####[facility] Ghrenoomgp0039[address] [place], [place] [address]Dr. Antonella Medrano EO # 0.3 103/ul Normal 0.0-0.7 [facility] Comment on above: Performed By: #### C BC ####[facility] Mwfnsbqunk541[address] [place], [place] [address]Dr. Antonella Medrano Eosinophils/100 WBC (Bld) 3.2 % Normal 0.9-7.0 [facility] Comment on above: Performed By: #### C BC ####[facility] Fazrpxkyer3914[address] [place], [place] [address]Dr. Antonella Medrano Erythrocyte distribution width (RBC) [Ratio] 13.0 % Normal 11.0-15.0 [facility] Comment on above: Performed By: #### C BC ####[facility] Yaqszlhogk494[address] [place], [place] [address]Dr. Antonella Medrano Hematocrit (Bld) [Volume fraction] 39.4 % Normal 36.0-48.0 [facility] Comment on above: Performed By: #### C BC ####[facility] Onszfryqbw4101[address] [place], [place] [address]Dr. Antonella Medrano Hemoglobin (Bld) [Mass/Vol] 13.3 g/dL Normal 12.0-16.0 [facility] Comment on above: Performed By: #### C BC ####[facility] Kkoeypzqix134[address] [place], [place] [address]Dr. Antonella Medrano IG # 0.08 10e3/ul Critically high 0.00-0.03 [facility] Comment on above: Performed By: #### C BC ####[facility] Nhgihbqlot971[address] [place], [place] [address]DrGerman Medrano IG % 0.9 % Critically high 0.0-0.5 [facility] Comment on above: Performed By: #### C BC ####[facility] Efpzzkgxch9363 [place] [address]DrGerman Medrano LYMPH # 1.6 103/ul Normal 1.2-3.8 [facility] Comment on above: Performed By: #### C BC ####[facility] Gtucnntgnf8132 [place] [address]DrGerman Medrano Lymphocytes/100 WBC (Bld) 18.7 % Critically low 20.5-60.0 [facility] Comment on above: Performed By: #### C BC ####[facility] Cyslipeoda[address] [place], [place] [address]DrGerman Medrano MANUAL DIFF REQ NO Normal [facility] Comment on above: Performed By: #### C BC ####[facility] Lpwjeeense850[address] [place], [place] [address]DrGerman Medrano MCH (RBC) [Entitic mass] 28.9 pg Normal 26.7-34.0 [facility] Comment on above: Performed By: #### C BC ####[facility] Sfeekarwth9212[address] [place], [place] [address]DrGerman Medrano MCHC (RBC) [Mass/Vol] 33.8 g/dL Normal 29.9-35.2 [facility] Comment on above: Performed By: #### C BC ####[facility] Soxejzskdn4155[address] [place], [place] [address]DrGerman Medrano MCV (RBC) [Entitic vol] 85.7 fL Normal 81.0-99.0 [facility] Comment on above: Performed By: #### C BC ####[facility] Puwexlqqws[address] [place], [place] [address]DrGerman Medrano MONO # 0.9 103/ul Critically high 0.3-0.8 [facility] Comment on above: Performed By: #### C BC ####[facility] Owmivsekwz346[address] [place], [place] [address]DrGerman Medrano Monocytes/100 WBC (Bld) 10.4 % Normal 1.7-12.0 [facility] Comment on above: Performed By: #### C BC ####[facility] Eyehvyqkoi2138 [place] [address]Dr. Antonella Medrano NEUT # 5.7 103/ul Normal 1.4-6.5 [facility] Comment on above: Performed By: #### C BC ####[facility] Ndsqhxaqbe2265 [place] [address]Dr. Antonella Medrano Neutrophils/100 WBC (Bld) 66.4 % Normal 43.0-75.0 [facility] Comment on above: Performed By: #### C BC ####[facility] Cegqcofiyn8968 [place] [address]Dr. Antonella Medrano Platelet mean volume (Bld) [Entitic vol] 10.8 fL Normal 9.5-13.5 [facility] Comment on above: Performed By: #### C BC ####[facility] Jpihzefzva2141 [place] [address]Dr. Antonella Medrano PLT 255 103/ul Normal 150-450 [facility] Comment on above: Performed By: #### C BC ####[facility] Omvbcssecj2532[address] [place], [place] [address]Dr. Antonella Medrano RBC 4.60 106/ul Normal 4.20-5.40 [facility] Comment on above: Performed By: #### C BC ####[facility] Nbmfnrotwj5327 [place] [id number]. Antonella Medrano WBC 8.6 103/ul Normal 4.0-11.0 [facility] Comment on above: Performed By: #### C BC ####[facility] Ezjhgquoxl9563 [place] [id number]. Antonella Medrano POINT OF CARE GLUCOSEon -2 Glucose [Mass/Vol] 284 mg/dL Critically high 74-106 [facility] Comment on above: Performed By: #### P OCGLUC ####[facility] Yfrslnwgal4586 [place] [address]Dr. Antonella Mitchell Glucose [Mass/Vol] 343 mg/dL Critically high 74-106 [facility] Comment on above: Performed By: #### P OCGLUC ####[facility] Wjuqbczkxx8262 [place] [address]Dr. Antonella Medrano Glucose [Mass/Vol] 234 mg/dL Critically high 74-106 [facility] Comment on above: Performed By: #### P OCGLUC ####[facility] Ejiasmcqmv4616 [place] [address]Dr. Mariafilemon Mitchell Glucose [Mass/Vol] 328 mg/dL Critically high 74-106 [facility] Comment on above: Performed By: #### P OCGLUC ####[facility] Zshtuznrum9040[address] [place], [place] [address]Dr. Antonella Medrano Glucose [Mass/Vol] 317 mg/dL Critically high 74-106 [facility] Comment on above: Performed By: #### P OCGLUC ####[facility] Vptskhufyd7855[address] [place], [place] [address]Dr. Antonella Medrano PROF 14(COMP METB)on 023 Albumin [Mass/Vol] 2.5 g/dL Critically low 3.4-5.0 [facility] Comment on above: Performed By: #### C MP ####[facility] Fiwotaplty6429[address] [place], [place] [address]Dr. Antonella Medrano Albumin/Globulin [Mass ratio] 0.9 {ratio} Normal [facility] Comment on above: Performed By: #### C MP ####[facility] Huscffoibi6[address] [place], [place] [address]Dr. Antonella Medrano ALP [Catalytic activity/Vol] 121 U/L Critically high 46-116 [facility] Comment on above: Performed By: #### C MP ####[facility] Kaecstpvbv7148[address] [place], [place] [address]Dr. Antonella Medrano ALT [Catalytic activity/Vol] 19 U/L Normal 14-59 [facility] Comment on above: Performed By: #### C MP ####[facility] Vfsmyakusm026[address] [place], [place] [address]Dr. Antonella Medrano Anion gap [Moles/Vol] 11.0 mmol/L Normal Th e [facility] Comment on above: Performed By: #### C MP ####[facility] Qtnemavjgh6259 [place] [address]Dr. Antonella Medrano AST [Catalytic activity/Vol] 19 U/L Normal 15-37 [facility] Comment on above: Performed By: #### C MP ####[facility] Rbpnjmgmwb7967[address] [place], [place] [address]Dr. Mariafilemon Mitchell Bilirubin [Mass/Vol] 0.3 mg/dL Normal 0.2-1.0 [facility] Comment on above: Performed By: #### C MP ####[facility] Ehfhqliyyw5915[address] [place], [place] [address]Dr. Antonella Medrano Calcium [Mass/Vol] 8.8 mg/dL Normal 8.5-10.1 [facility] Comment on above: Performed By: #### C MP ####[facility] Dhryxiikuw4878[address] [place], [place] [address]Dr. Antonella Medrano Chloride [Moles/Vol] 103 mmol/L Normal 98-107 [facility] Comment on above: Performed By: #### C MP ####[facility] Wqzpturtpi424[address] [place], [place] [address]Dr. Antonella Medrano CO2 [Moles/Vol] 27.2 mmol/L Normal 21.0-32.0 [facility] Comment on above: Performed By: #### C MP ####[facility] Txbmuasarv5204[address] [place], [place] [address]Dr. Antonella Medrano Creatinine [Mass/Vol] 0.58 mg/dL Normal 0.55-1.02 [facility] Comment on above: Performed By: #### C MP ####[facility] Ztqilqmeng[address] [place], [place] [address]Dr. Antonella Medrano EGFR-AF IVORIAN >60 Normal >=60 [facility] Comment on above: Performed By: #### C MP ####[facility] Ghobjqlolh9201[address] [place], [place] [address]Dr. Antonella Medrano EGFR-NON AF IVORIAN >60 Normal >=60 [facility] Comment on above: Performed By: #### C MP ####[facility] Xyetpatqys9876 [place] [id number]. Antonella Medrano Globulin (S) [Mass/Vol] 2.7 g/dL Normal [facility] Comment on above: Performed By: #### C MP ####[facility] Mcbgcsgvir6837 [place] [id number]. Antonella Medrano Glucose [Mass/Vol] 245 mg/dL Critically high 74-106 [facility] Comment on above: Performed By: #### C MP ####[facility] Pdhfhohphm6814 [place] [address]Dr. Antonella Medrano Potassium [Moles/Vol] 4.2 mmol/L Normal 3.5-5.1 [facility] Comment on above: Performed By: #### C MP ####[facility] Bdpzihwpsd5125 [place] [address]Dr. Antonella Medrano Protein [Mass/Vol] 5.2 g/dL Critically low 6.4-8.2 [facility] Comment on above: Performed By: #### C MP ####[facility] Ghhwdtzcsf6[address] [place], [place] [address]Dr. Antonella Medrano Sodium [Moles/Vol] 137 mmol/L Normal 136-145 [facility] Comment on above: Performed By: #### C MP ####[facility] Qvmxypvkbk1055 [place] [address]Dr. Antonella Medrano Urea nitrogen [Mass/Vol] 24.0 mg/dL Critically high 7.0-18.0 [facility] Comment on above: Performed By: #### C MP ####[facility] Ewhsqqikoo7110 [place] [address]Dr. Antonella Medrano Urea nitrogen/Creatinine [Mass ratio] 41.4 mg/mg Normal [facility] Comment on above: Performed By: #### C MP ####[facility] Wtmvfmnhbg4359 [place] [address]Dr. Antonella Mitchell CBC AUTO DIFFon 11-12-2022 BASO # 0.0 103/ul Normal 0.0-0.1 [facility] Comment on above: Performed By: #### C BC ####[facility] Ibyibexbnd2150 [place] [address]Dr. Antonella Medrano Basophils/100 WBC (Bld) 0.5 % Normal 0.2-2.0 [facility] Comment on above: Performed By: #### C BC ####[facility] Dozudmaafd84[address] [place], [place] [address]Dr. Antonella Medrano EO # 0.3 103/ul Normal 0.0-0.7 [facility] Comment on above: Performed By: #### C BC ####[facility] [address]jsrvofvtq[address] [place], [place] [address]Dr. Antonella Medrano Eosinophils/100 WBC (Bld) 3.5 % Normal 0.9-7.0 [facility] Comment on above: Performed By: #### C BC ####[facility] Gruzcjsidj[address] [place], [place] [address]Dr. Antonella Medrano Erythrocyte distribution width (RBC) [Ratio] 13.1 % Normal 11.0-15.0 [facility] Comment on above: Performed By: #### C BC ####[facility] Olaxzxllzf[address] [place], [place] [address]Dr. Antonella Medrano Hematocrit (Bld) [Volume fraction] 39.4 % Normal 36.0-48.0 [facility] Comment on above: Performed By: #### C BC ####[facility] Cgkwlavphb7[address] [place], [place] [address]Dr. Antonella Medarno Hemoglobin (Bld) [Mass/Vol] 13.3 g/dL Normal 12.0-16.0 [facility] Comment on above: Performed By: #### C BC ####[facility] Psuryrfpmo59[address] [place], [place] [address]Dr. Antonella Medrano IG # 0.11 10e3/ul Critically high 0.00-0.03 [facility] Comment on above: Performed By: #### C BC ####[facility] Seiflfibpg3364[address] [place], [place] [address]Dr. Antonella Medrano IG % 1.3 % Critically high 0.0-0.5 [facility] Comment on above: Performed By: #### C BC ####[facility] Wzeskcdyzu90[address] [place] [address]Dr. Mariafilemon Medrano LYMPH # 2.0 103/ul Normal 1.2-3.8 [facility] Comment on above: Performed By: #### C BC ####[facility] Bgzlryvtij9848 [place] [address]Dr. Antonella Medrano Lymphocytes/100 WBC (Bld) 22.9 % Normal 20.5-60.0 [facility] Comment on above: Performed By: #### C BC ####[facility] Tszvqkxmcp[address] [place], [place] [address]Dr. Antonella Medrano MANUAL DIFF REQ NO Normal [facility] Comment on above: Performed By: #### C BC ####[facility] Srkvolwtmr617[address] [place], [place] [address]Dr. Antonella Medrano MCH (RBC) [Entitic mass] 29.2 pg Normal 26.7-34.0 [facility] Comment on above: Performed By: #### C BC ####[facility] Pnxmqevsac080[address] [place], [place] [address]Dr. Mariafilemon Medrano MCHC (RBC) [Mass/Vol] 33.8 g/dL Normal 29.9-35.2 [facility] Comment on above: Performed By: #### C BC ####[facility] Xoidkyecyj3[address] [place], [place] [address]Dr. Antonella Medrano MCV (RBC) [Entitic vol] 86.6 fL Normal 81.0-99.0 [facility] Comment on above: Performed By: #### C BC ####[facility] Yfrxocdhbe617[address] [place], [place] [id number] Medrano MONO # 0.8 103/ul Normal 0.3-0.8 [facility] Comment on above: Performed By: #### C BC ####[facility] Ryniznmwcd28[address] [place] [id number]. Antonella Medrano Monocytes/100 WBC (Bld) 9.2 % Normal 1.7-12.0 [facility] Comment on above: Performed By: #### C BC ####[facility] Fhcquwpfza7553 [place] [id number]. Antonella Medrano NEUT # 5.4 103/ul Normal 1.4-6.5 [facility] Comment on above: Performed By: #### C BC ####[facility] Omwzjlsala3521 [place] [id number]. Antonella Medrano Neutrophils/100 WBC (Bld) 62.6 % Normal 43.0-75.0 [facility] Comment on above: Performed By: #### C BC ####[facility] Voxtytlzob3824 [place] [id number]. Antonella Medrano Platelet mean volume (Bld) [Entitic vol] 10.8 fL Normal 9.5-13.5 [facility] Comment on above: Performed By: #### C BC ####[facility] Eeipcrwsiv7233 [place] [address]Dr. Antonella Medrano PLT 247 103/ul Normal 150-450 [facility] Comment on above: Performed By: #### C BC ####[facility] Qlrhhxiueu2551 [place] [id number]. Antonella Medrano RBC 4.55 106/ul Normal 4.20-5.40 [facility] Comment on above: Performed By: #### C BC ####[facility] Mwrncqoipf2072 [place] [id number]. Antonella Medrano WBC 8.6 103/ul Normal 4.0-11.0 [facility] Comment on above: Performed By: #### C BC ####[facility] Eeashcobtl0811 [place] [id number]. Antonella Medrano POINT OF CARE GLUCOSEon 2 Glucose [Mass/Vol] 232 mg/dL Critically high 74-106 [facility] Comment on above: Performed By: #### P OCGLUC ####[facility] Dsnrmwkvvp9522 [place] [id number]. Antonella Medrano Glucose [Mass/Vol] 299 mg/dL Critically high 74-106 [facility] Comment on above: Performed By: #### P OCGLUC ####[facility] Yfftflkwtv4970 [place] [address]DrGerman Medrano PROF 14(COMP METB)on 023 Albumin [Mass/Vol] 2.4 g/dL Critically low 3.4-5.0 [facility] Comment on above: Performed By: #### C MP ####[facility] Gxaxzqshhl2355 [place] [address]Dr. Antonella Medrano Albumin/Globulin [Mass ratio] 0.8 {ratio} Normal [facility] Comment on above: Performed By: #### C MP ####[facility] Fwtiwjqkks[address] [place], [place] [address]Dr. Antonella Medrano ALP [Catalytic activity/Vol] 115 U/L Normal 46-116 [facility] Comment on above: Performed By: #### C MP ####[facility] Lxyoopiqai[address] [place], [place] [address]Dr. Antonella Medrano ALT [Catalytic activity/Vol] 15 U/L Normal 14-59 [facility] Comment on above: Performed By: #### C MP ####[facility] Jjvmxufirk[address] [place], [place] [address]Dr. Antonella Medrano Anion gap [Moles/Vol] 11.2 mmol/L Normal [facility] Comment on above: Performed By: #### C MP ####[facility] Gkyjanyjrn8833 [place] [address]Dr. Antonella Medrano AST [Catalytic activity/Vol] 17 U/L Normal 15-37 [facility] Comment on above: Performed By: #### C MP ####[facility] Vqgfqydwqw6277 [place] [address]DrGerman Medrano Bilirubin [Mass/Vol] 0.3 mg/dL Normal 0.2-1.0 [facility] Comment on above: Performed By: #### C MP ####[facility] Kuoystjlms2390 [place] [address]Dr. Antonella Medrano Calcium [Mass/Vol] 8.6 mg/dL Normal 8.5-10.1 [facility] Comment on above: Performed By: #### C MP ####[facility] Uunarbkrrn7166 [place] [address]Dr. Antonella Medrano Chloride [Moles/Vol] 104 mmol/L Normal 98-107 [facility] Comment on above: Performed By: #### C MP ####[facility] Yarqfpttjd7850 [place] [address]Dr. Antonella Medrano CO2 [Moles/Vol] 26.0 mmol/L Normal 21.0-32.0 [facility] Comment on above: Performed By: #### C MP ####[facility] Yynbhkpphj9712 [place] [address]Dr. Antonella Medrano Creatinine [Mass/Vol] 0.62 mg/dL Normal 0.55-1.02 [facility] Comment on above: Performed By: #### C MP ####[facility] Ajvsujdkom[address] [place], [place] [address]Dr. Antonella Medrano EGFR-AF IVORIAN >60 Normal >=60 [facility] Comment on above: Performed By: #### C MP ####[facility] Pdawhrsmrc4[address] [place], [place] [address]Dr. Antonella Medrano EGFR-NON AF IVORIAN >60 Normal >=60 [facility] Comment on above: Performed By: #### C MP ####[facility] Bbbimaepdq7913[address] [place], [place] [address]Dr. Antonella Medrano Globulin (S) [Mass/Vol] 3.0 g/dL Normal [facility] Comment on above: Performed By: #### C MP ####[facility] Xhaosxkdwn8263 [place] [address]Dr. Antonella Medrano Glucose [Mass/Vol] 223 mg/dL Critically high 74-106 [facility] Comment on above: Performed By: #### C MP ####[facility] Drawtgkpwh3340 [place] [address]Dr. Antonella Medrano Potassium [Moles/Vol] 4.2 mmol/L Normal 3.5-5.1 [facility] Comment on above: Performed By: #### C MP ####[facility] Xtqvrdlinn0397 [place] [address]Dr. Antonella Medrano Protein [Mass/Vol] 5.4 g/dL Critically low 6.4-8.2 [facility] Comment on above: Performed By: #### C MP ####[facility] Jwffbwclgr2591 [place] [address]Dr. Antonella Medrano Sodium [Moles/Vol] 137 mmol/L Normal 136-145 [facility] Comment on above: Performed By: #### C MP ####[facility] Eijzbwwbou9[address] [place], [place] [address]Dr. Antonella Medrano Urea nitrogen [Mass/Vol] 20.0 mg/dL Critically high 7.0-18.0 [facility] Comment on above: Performed By: #### C MP ####[facility] Nwfnioqvmi0313[address] [place], [place] [address]Dr. Antonella Medrano Urea nitrogen/Creatinine [Mass ratio] 32.3 mg/mg Normal [facility] Comment on above: Performed By: #### C MP ####[facility] Jaumimhnwu9[address] [place], [place] [address]Dr. Antonella Medrano CBC AUTO DIFFon 11-11-2022 BASO # 0.0 103/ul Normal 0.0-0.1 [facility] Comment on above: Performed By: #### C BC ####[facility] Hooebroher35[address] [place], [place] [address]Dr. Antonella Medrano Basophils/100 WBC (Bld) 0.5 % Normal 0.2-2.0 [facility] Comment on above: Performed By: #### C BC ####[facility] Nkdpxjzlvo7[address] [place], [place] [address]Dr. Antonella Medrano EO # 0.3 103/ul Normal 0.0-0.7 [facility] Comment on above: Performed By: #### C BC ####[facility] Ncmcuhzifj55[address] [place], [place] [address]Dr. Antonella Mitchell Eosinophils/100 WBC (Bld) 3.4 % Normal 0.9-7.0 [facility] Comment on above: Performed By: #### C BC ####[facility] Lvvzijihal5753 [place] [address]Dr. Antonella Medrano Erythrocyte distribution width (RBC) [Ratio] 13.3 % Normal 11.0-15.0 [facility] Comment on above: Performed By: #### C BC ####[facility] Aufdxnlrxl0515[address] [place], [place] [address]Dr. Antonella Medrano Hematocrit (Bld) [Volume fraction] 38.2 % Normal 36.0-48.0 [facility] Comment on above: Performed By: #### C BC ####[facility] Etiriadvzp7625[address] [place], [place] [address]Dr. Antonella Medrano Hemoglobin (Bld) [Mass/Vol] 12.5 g/dL Normal 12.0-16.0 [facility] Comment on above: Performed By: #### C BC ####[facility] Arozbrydcn8834[address] [place], [place] [address]Dr. Antonella Medrano IG # 0.10 10e3/ul Critically high 0.00-0.03 [facility] Comment on above: Performed By: #### C BC ####[facility] Sfamwclcwu15[address] [place], [place] [address]Dr. Antonella Medrano IG % 1.2 % Critically high 0.0-0.5 [facility] Comment on above: Performed By: #### C BC ####[facility] Lnzkydwdmr30[address] [place], [place] [address]Dr. Antonella Medrano LYMPH # 1.9 103/ul Normal 1.2-3.8 [facility] Comment on above: Performed By: #### C BC ####[facility] Anufygqtld7749[address] [place], [place] [address]Dr. Antonella Medrano Lymphocytes/100 WBC (Bld) 23.1 % Normal 20.5-60.0 [facility] Comment on above: Performed By: #### C BC ####[facility] Axtncgclxz[address] [place], [place] [address]Dr. Antonella Medrano MANUAL DIFF REQ NO Normal [facility] Comment on above: Performed By: #### C BC ####[facility] Jdyhacbxtk7993 [place] [id number]. Antonella Medrano MCH (RBC) [Entitic mass] 28.7 pg Normal 26.7-34.0 [facility] Comment on above: Performed By: #### C BC ####[facility] Vdlutjvpdc6200 [place] [id number]. Antonella Medrano MCHC (RBC) [Mass/Vol] 32.7 g/dL Normal 29.9-35.2 [facility] Comment on above: Performed By: #### C BC ####[facility] Tlgaozjzyk3087 [place] [address]Dr. Antonella Mitchell MCV (RBC) [Entitic vol] 87.6 fL Normal 81.0-99.0 [facility] Comment on above: Performed By: #### C BC ####[facility] Uvhdocryie01[address] [place], [place] [address]Dr. Mariafilemon Medrano MONO # 0.8 103/ul Normal 0.3-0.8 [facility] Comment on above: Performed By: #### C BC ####[facility] Jkgwblints[address] [place], [place] [address]Dr. Mariafilemon Medrano Monocytes/100 WBC (Bld) 9.8 % Normal 1.7-12.0 [facility] Comment on above: Performed By: #### C BC ####[facility] Wvfjqlmzue59[address] [place], [place] [address]Dr. Antonella Medrano NEUT # 5.1 103/ul Normal 1.4-6.5 [facility] Comment on above: Performed By: #### C BC ####[facility] Eqrragwbli27[address] [place], [place] [address]Dr. Mariafilemon Medrano Neutrophils/100 WBC (Bld) 62.0 % Normal 43.0-75.0 [facility] Comment on above: Performed By: #### C BC ####[facility] Daxuuyefjl9[address] [place], [place] [address]Dr. Antonella Medrano Platelet mean volume (Bld) [Entitic vol] 11.1 fL Normal 9.5-13.5 [facility] Comment on above: Performed By: #### C BC ####[facility] Vrtuwkejeg7374 [place] [address]Dr. Antonella Medrano PLT 251 103/ul Normal 150-450 [facility] Comment on above: Performed By: #### C BC ####[facility] Moyshjkvwu4624 [place] [id number]. Mariafilemon Mitchell RBC 4.36 106/ul Normal 4.20-5.40 [facility] Comment on above: Performed By: #### C BC ####[facility] Yhtnzdrfif9779 [place] [id number]. Antonella Medrano WBC 8.2 103/ul Normal 4.0-11.0 [facility] Comment on above: Performed By: #### C BC ####[facility] Fkdrvgfpsa6495 [place] [address]Dr. Antonella Medrano POINT OF CARE GLUCOSEon 10-24 Glucose [Mass/Vol] 255 mg/dL Critically high 74-106 [facility] Comment on above: Performed By: #### P OCGLUC ####[facility] Hnsgqzgxjz1585 [place] [address]Dr. Antonella Medrano Glucose [Mass/Vol] 269 mg/dL Critically high -106 [facility] Comment on above: Performed By: #### P OCGLUC ####[facility] Ueucawbcuo5668 [place] [address]Dr. Antonella Medrano Glucose [Mass/Vol] 282 mg/dL Critically high 74-106 [facility] Comment on above: Performed By: #### P OCGLUC ####[facility] Mtcsisneiy4243 [place] [address]Dr. Antonella Medrano PROF 14(COMP METB)on 023 Albumin [Mass/Vol] 2.2 g/dL Critically low 3.4-5.0 [facility] Comment on above: Performed By: #### C MP ####[facility] Muqwsjkngw8670 [place] [address]Dr. Antonella Medrano Albumin/Globulin [Mass ratio] 0.7 {ratio} Normal [facility] Comment on above: Performed By: #### C MP ####[facility] Kdqtexrfhf4577 [place] [address]Dr. Antonella Mitchell ALP [Catalytic activity/Vol] 129 U/L Critically high 46-116 [facility] Comment on above: Performed By: #### C MP ####[facility] Fjqzznluds7619 [place] [address]Dr. Antonella Medrano ALT [Catalytic activity/Vol] 14 U/L Normal 14-59 [facility] Comment on above: Performed By: #### C MP ####[facility] Gfssaoukmv8604 [place] [address]Dr. Antonella Medrano Anion gap [Moles/Vol] 10.6 mmol/L Normal [facility] Comment on above: Performed By: #### C MP ####[facility] Fmccjhvapk[address] [place], [place] [address]Dr. Antonella Medrano AST [Catalytic activity/Vol] 11 U/L Critically low 15-37 [facility] Comment on above: Performed By: #### C MP ####[facility] Viygdoqgnn[address] [place], [place] [address]Dr. Antonella Medrano Bilirubin [Mass/Vol] 0.3 mg/dL Normal 0.2-1.0 [facility] Comment on above: Performed By: #### C MP ####[facility] Jrmbigsffj5405 [place] [address]Dr. Antonella Medrano Calcium [Mass/Vol] 8.4 mg/dL Critically low 8.5-10.1 [facility] Comment on above: Performed By: #### C MP ####[facility] Arhesusdaf0638 [place] [address]Dr. Antonella Medrano Chloride [Moles/Vol] 105 mmol/L Normal 98-107 [facility] Comment on above: Performed By: #### C MP ####[facility] Tilmuauveo7495 [place] [address]Dr. Antonella Medrano CO2 [Moles/Vol] 25.1 mmol/L Normal 21.0-32.0 [facility] Comment on above: Performed By: #### C MP ####[facility] Rlmlznkhra7913 [place] [address]Dr. Antonella Medrano Creatinine [Mass/Vol] 0.70 mg/dL Normal 0.55-1.02 [facility] Comment on above: Performed By: #### C MP ####[facility] Vpjnenerlh0219 [place] [address]Dr. Antonella Medrano EGFR-AF IVORIAN >60 Normal >=60 [facility] Comment on above: Performed By: #### C MP ####[facility] Urvoxvnszk7678 [place] [address]Dr. Antonella Medrano EGFR-NON AF IVORIAN >60 Normal >=60 [facility] Comment on above: Performed By: #### C MP ####[facility] Vhtzlfjxdy1718 [place] [address]Dr. Antonella Medrano Globulin (S) [Mass/Vol] 3.1 g/dL Normal [facility] Comment on above: Performed By: #### C MP ####[facility] Ebwzeegoys9989 [place] [address]Dr. Antonella Medrano Glucose [Mass/Vol] 275 mg/dL Critically high 74-106 [facility] Comment on above: Performed By: #### C MP ####[facility] Buiydtbpry7306 [place] [address]Dr. Antonella Medrano Potassium [Moles/Vol] 4.7 mmol/L Normal 3.5-5.1 [facility] Comment on above: Performed By: #### C MP ####[facility] Ieteflblot8798 [place] [address]Dr. Antonella Medrano Protein [Mass/Vol] 5.3 g/dL Critically low 6.4-8.2 [facility] Comment on above: Performed By: #### C MP ####[facility] Usscoaugtv3243 [place] [address]Dr. Antonella Medrnao Sodium [Moles/Vol] 136 mmol/L Normal 136-145 [facility] Comment on above: Performed By: #### C MP ####[facility] Tnlrxrvohz6217 [place] [id number]. Antonella Mitchell Urea nitrogen [Mass/Vol] 27.0 mg/dL Critically high 7.0-18.0 [facility] Comment on above: Performed By: #### C MP ####[facility] Njuaybxogt05[address] [place], [place] [address]Dr. Mariafilemon Medrano Urea nitrogen/Creatinine [Mass ratio] 38.6 mg/mg Normal [facility] Comment on above: Performed By: #### C MP ####[facility] Zenfmgbfqh9685[address] [place], [place] [address]Dr. Mariafilemon Medrano CBC AUTO DIFFon 11-10-2022 BASO # 0.1 103/ul Normal 0.0-0.1 [facility] Comment on above: Performed By: #### C BC ####[facility] Ypceulftym926[address] [place], [place] [address]Dr. Antonella Medrano Basophils/100 WBC (Bld) 0.6 % Normal 0.2-2.0 [facility] Comment on above: Performed By: #### C BC ####[facility] Uwhmkjctse97[address] [place], [place] [address]Dr. Mariafilemon Medrano EO # 0.3 103/ul Normal 0.0-0.7 [facility] Comment on above: Performed By: #### C BC ####[facility] Vpclqhjvwp59[address] [place], [place] [address]Dr. Antonella Medrano Eosinophils/100 WBC (Bld) 3.4 % Normal 0.9-7.0 [facility] Comment on above: Performed By: #### C BC ####[facility] Kkvpouevno11[address] [place], [place] [address]Dr. Antonella Medrano Erythrocyte distribution width (RBC) [Ratio] 13.3 % Normal 11.0-15.0 [facility] Comment on above: Performed By: #### C BC ####[facility] Udmlypmrmn7[address] [place], [place] [address]Dr. Antonella Medrano Hematocrit (Bld) [Volume fraction] 39.8 % Normal 36.0-48.0 [facility] Comment on above: Performed By: #### C BC ####[facility] Dbhggcaynq4475 [place] [id number]. Antonella Medrano Hemoglobin (Bld) [Mass/Vol] 13.2 g/dL Normal 12.0-16.0 [facility] Comment on above: Performed By: #### C BC ####[facility] Uqwsssyudy5700 [place] [id number]. Antonella Medrano IG # 0.11 10e3/ul Critically high 0.00-0.03 [facility] Comment on above: Performed By: #### C BC ####[facility] Lguldkfyyk5774 [place] [address]Dr. Antonella Medrano IG % 1.3 % Critically high 0.0-0.5 [facility] Comment on above: Performed By: #### C BC ####[facility] Whmljnoqqi94[address] [place], [place] [address]DrGerman Antonella Medrano LYMPH # 1.8 103/ul Normal 1.2-3.8 [facility] Comment on above: Performed By: #### C BC ####[facility] Yaprlqcwfo9562 [place] [address]Dr. Antonella Mitchell Lymphocytes/100 WBC (Bld) 22.0 % Normal 20.5-60.0 [facility] Comment on above: Performed By: #### C BC ####[facility] Igqarktibv0105 [place] [address]DrGerman Antonella Medrano MANUAL DIFF REQ NO Normal [facility] Comment on above: Performed By: #### C BC ####[facility] Tzxaoyqopx3510 [place] [id number]. Antonella Medrano MCH (RBC) [Entitic mass] 29.3 pg Normal 26.7-34.0 [facility] Comment on above: Performed By: #### C BC ####[facility] Scejjkrbdm9902 [place] [id number]. Antonella Mitchell MCHC (RBC) [Mass/Vol] 33.2 g/dL Normal 29.9-35.2 [facility] Comment on above: Performed By: #### C BC ####[facility] Uptuwchidx0961 [place] [id number]. Antonella Medrano MCV (RBC) [Entitic vol] 88.2 fL Normal 81.0-99.0 [facility] Comment on above: Performed By: #### C BC ####[facility] Ftxrwrmptl7856 [place] [id number]. Antonella Medrano MONO # 0.9 103/ul Critically high 0.3-0.8 [facility] Comment on above: Performed By: #### C BC ####[facility] Stwfdknbwd7126 [place] [id number]. Antonella Medrano Monocytes/100 WBC (Bld) 11.0 % Normal 1.7-12.0 [facility] Comment on above: Performed By: #### C BC ####[facility] Wvyqpeemgp[address] [place], [place] [address]Dr. Antonella Medrano NEUT # 5.0 103/ul Normal 1.4-6.5 [facility] Comment on above: Performed By: #### C BC ####[facility] [address]wjriahw[address] [place], [place] [id number]. Antonella Medrano Neutrophils/100 WBC (Bld) 61.7 % Normal 43.0-75.0 The [facility] Comment on above: Performed By: #### C BC ####[facility] Lybbssph[address] [place], [place] [id number]. Antonella Medrano Platelet mean volume (Bld) [Entitic vol] 11.0 fL Normal 9.5-13.5 [facility] Comment on above: Performed By: #### C BC ####[facility] Nftvwthtjb0848 [place] [id number]. Antonella Medrano PLT 237 103/ul Normal 150-450 [facility] Comment on above: Performed By: #### C BC ####[facility] Nqeqrwffix7012 [place] [id number]. Antonella Medrano RBC 4.51 106/ul Normal 4.20-5.40 [facility] Comment on above: Performed By: #### C BC ####[facility] Fptldfxqiw74[address] [place] [address]Dr. Antonella Mitchell WBC 8.2 103/ul Normal 4.0-11.0 [facility] Comment on above: Performed By: #### C BC ####[facility] Vrybcyxama6133 [place] [address]Dr. Antonella Mitchell POINT OF CARE GLUCOSEon 10-24 Glucose [Mass/Vol] 318 mg/dL Critically high -106 [facility] Comment on above: Performed By: #### P OCGLUC ####[facility] Dhzkyhrkbh7761 [place] [address]Dr. Mariafilemon Mitchell Glucose [Mass/Vol] 355 mg/dL Critically high -106 [facility] Comment on above: Performed By: #### P OCGLUC ####[facility] Epxjddunbb8507 [place] [address]Dr. Mariafilemon Medrano Glucose [Mass/Vol] 268 mg/dL Critically high -106 [facility] Comment on above: Performed By: #### P OCGLUC ####[facility] Ohoauihjlq2516 [place] [address]Dr. Antonella Mitchell Glucose [Mass/Vol] 255 mg/dL Critically high -106 [facility] Comment on above: Performed By: #### P OCGLUC ####[facility] Mlbpgxbvar2783 [place] [address]Dr. Antonella Medrano PROF 14(COMP METB)on 023 Albumin [Mass/Vol] 2.3 g/dL Critically low 3.4-5.0 [facility] Comment on above: Performed By: #### C MP ####[facility] Guabpobacj1716 [place] [address]Dr. Antonella Medrano Albumin/Globulin [Mass ratio] 0.9 {ratio} Normal [facility] Comment on above: Performed By: #### C MP ####[facility] Zuvxvwfgwg6401 [place] [address]Dr. Mariafilemon Mitchell ALP [Catalytic activity/Vol] 153 U/L Critically high 46-116 [facility] Comment on above: Performed By: #### C MP ####[facility] Zeklstkubr3911 [place] [id number]. Antonella Medrano ALT [Catalytic activity/Vol] 15 U/L Normal 14-59 [facility] Comment on above: Performed By: #### C MP ####[facility] Kiijuwicqn8192 [place] [id number]. Antonella Medrano Anion gap [Moles/Vol] 12.7 mmol/L Normal [facility] Comment on above: Performed By: #### C MP ####[facility] Hxvwummuqb7940 [place] [id number]. Antonella Mitchell AST [Catalytic activity/Vol] 14 U/L Critically low 15-37 [facility] Comment on above: Performed By: #### C MP ####[facility] Vchjjdpssl8701 [place] [address]Dr. Antonella Mitchell Bilirubin [Mass/Vol] 0.3 mg/dL Normal 0.2-1.0 [facility] Comment on above: Performed By: #### C MP ####[facility] Pvpradygxz5512 [place] [id number]. Antonella Mitchell Calcium [Mass/Vol] 8.3 mg/dL Critically low 8.5-10.1 [facility] Comment on above: Performed By: #### C MP ####[facility] Sbfbgzmuxv3714 [place] [address]Dr. Mariafilemon Medrano Chloride [Moles/Vol] 104 mmol/L Normal 98-107 [facility] Comment on above: Performed By: #### C MP ####[facility] Hmujsjuzvf0730 [place] [id number]. Antnoella Mitchell CO2 [Moles/Vol] 23.8 mmol/L Normal 21.0-32.0 [facility] Comment on above: Performed By: #### C MP ####[facility] Wycrjddiap4501 [place] [id number]. Mariafilemon Medrano Creatinine [Mass/Vol] 0.73 mg/dL Normal 0.55-1.02 [facility] Comment on above: Performed By: #### C MP ####[facility] Ouhtefwtjc3000 [place] [id number]. Antonella Medrano EGFR-AF IVORIAN >60 Normal >=60 [facility] Comment on above: Performed By: #### C MP ####[facility] Ecfgfsnbeq9756 [place] [address]Dr. Antonella Medrano EGFR-NON AF IVORIAN >60 Normal >=60 [facility] Comment on above: Performed By: #### C MP ####[facility] Gvvtgwdunk5692 [place] [id number]. Antonella Medrano Globulin (S) [Mass/Vol] 2.6 g/dL Normal [facility] Comment on above: Performed By: #### C MP ####[facility] Fgpwhtjkhq8397 [place] [address]Dr. Antonella Medrano Glucose [Mass/Vol] 320 mg/dL Critically high 74-106 [facility] Comment on above: Performed By: #### C MP ####[facility] Hzocsbrsch9711 [place] [id number]. Antonella Medrano Potassium [Moles/Vol] 4.5 mmol/L Normal 3.5-5.1 [facility] Comment on above: Performed By: #### C MP ####[facility] Tcasoimwjt2179 [place] [address]Dr. Antonella Medrano Protein [Mass/Vol] 4.9 g/dL Critically low 6.4-8.2 [facility] Comment on above: Performed By: #### C MP ####[facility] Owosyzyylu0508 [place] [id number]. Antonella Medrano Sodium [Moles/Vol] 136 mmol/L Normal 136-145 [facility] Comment on above: Performed By: #### C MP ####[facility] Eigcnmnsld8855 [place] [address]Dr. Antonella Medrano Urea nitrogen [Mass/Vol] 27.0 mg/dL Critically high 7.0-18.0 [facility] Comment on above: Performed By: #### C MP ####[facility] Tqdamtvkll4243 [place] [id number]. Antonella Medrano Urea nitrogen/Creatinine [Mass ratio] 37.0 mg/mg Normal [facility] Comment on above: Performed By: #### C MP ####[facility] Iajbnmjrak6523 [place] [id number]. Antonella Medrano CBC AUTO DIFFon 11-09-2022 BASO # 0.0 103/ul Normal 0.0-0.1 [facility] Comment on above: Performed By: #### C BC ####[facility] Bjhowyxhca[address] [place], [place] [address]Dr. Mariafilemon Medrano Basophils/100 WBC (Bld) 0.4 % Normal 0.2-2.0 [facility] Comment on above: Performed By: #### C BC ####[facility] Eptflxyahg[address] [place], [place] [address]Dr. Antonella Medrano EO # 0.3 103/ul Normal 0.0-0.7 [facility] Comment on above: Performed By: #### C BC ####[facility] Pbkglwhmsv[address] [place], [place] [address]Dr. Antonella Medrano Eosinophils/100 WBC (Bld) 3.6 % Normal 0.9-7.0 [facility] Comment on above: Performed By: #### C BC ####[facility] Klpjvhtbiq[address] [place], [place] [address]Dr. Antonella Medrano Erythrocyte distribution width (RBC) [Ratio] 13.1 % Normal 11.0-15.0 [facility] Comment on above: Performed By: #### C BC ####[facility] Teomdnsjgd12[address] [place], [place] [address]Dr. Antonella Medrano Hematocrit (Bld) [Volume fraction] 41.7 % Normal 36.0-48.0 [facility] Comment on above: Performed By: #### C BC ####[facility] Fubmkqhxqr[address] [place], [place] [address]Dr. Antonella Medrano Hemoglobin (Bld) [Mass/Vol] 13.8 g/dL Normal 12.0-16.0 [facility] Comment on above: Performed By: #### C BC ####[facility] Ncpjhmrpaq3242 [place] [id number]. Antonella Medrano IG # 0.09 10e3/ul Critically high 0.00-0.03 [facility] Comment on above: Performed By: #### C BC ####[facility] Ycjyqtvmoq0881 [place] [id number]. Antonella Medrano IG % 1.1 % Critically high 0.0-0.5 [facility] Comment on above: Performed By: #### C BC ####[facility] Gdnfeovfqs8097 [place] [address]Dr. Antonella Mitchell LYMPH # 1.8 103/ul Normal 1.2-3.8 [facility] Comment on above: Performed By: #### C BC ####[facility] Czsxthanuz0940 [place] [address]Dr. Antonella Medrano Lymphocytes/100 WBC (Bld) 21.2 % Normal 20.5-60.0 [facility] Comment on above: Performed By: #### C BC ####[facility] Jtzdydjjaw8062 [place] [id number]. Antonella Medrano MANUAL DIFF REQ NO Normal [facility] Comment on above: Performed By: #### C BC ####[facility] Vfdifmozvk4541 [place] [id number]. Antonella Medrano MCH (RBC) [Entitic mass] 28.7 pg Normal 26.7-34.0 [facility] Comment on above: Performed By: #### C BC ####[facility] Jbwunlcvzu6924 [place] [id number]. Antonella Medrano MCHC (RBC) [Mass/Vol] 33.1 g/dL Normal 29.9-35.2 [facility] Comment on above: Performed By: #### C BC ####[facility] Bnbdkyquop3289 [place] [address]Dr. Antonella Mitchell MCV (RBC) [Entitic vol] 86.7 fL Normal 81.0-99.0 [facility] Comment on above: Performed By: #### C BC ####[facility] Hfunlhnbmc2031 [place] [id number]. Antonella Medrano MONO # 0.9 103/ul Critically high 0.3-0.8 [facility] Comment on above: Performed By: #### C BC ####[facility] Ovbiqtggws8001 [place] [id number]. Antonella Medrano Monocytes/100 WBC (Bld) 10.9 % Normal 1.7-12.0 [facility] Comment on above: Performed By: #### C BC ####[facility] Kpbjwiuzwl5240 [place] [id number]. Antonella Medrano NEUT # 5.2 103/ul Normal 1.4-6.5 [facility] Comment on above: Performed By: #### C BC ####[facility] Waeyikpeon0455 [place] [address]Dr. Antonella Medrano Neutrophils/100 WBC (Bld) 62.8 % Normal 43.0-75.0 [facility] Comment on above: Performed By: #### C BC ####[facility] Xoxstoniyp6284 [place] [address]Dr. Antonella Medrano Platelet mean volume (Bld) [Entitic vol] 10.6 fL Normal 9.5-13.5 [facility] Comment on above: Performed By: #### C BC ####[facility] Uvxedmbdyz1051 [place] [address]Dr. Antonella Medrano PLT 270 103/ul Normal 150-450 [facility] Comment on above: Performed By: #### C BC ####[facility] Nuftssdfif[address] [place], [place] [address]Dr. Antonella Medrano RBC 4.81 106/ul Normal 4.20-5.40 [facility] Comment on above: Performed By: #### C BC ####[facility] Lprwmnvkvo2520 [place] [address]Dr. Antonella Medrano WBC 8.3 103/ul Normal 4.0-11.0 [facility] Comment on above: Performed By: #### C BC ####[facility] Lsbrsmuupb1665 [place] [id number]. Antonella Medrano POINT OF CARE GLUCOSEon 10-24 Glucose [Mass/Vol] 295 mg/dL Critically high 74-106 [facility] Comment on above: Performed By: #### P OCGLUC ####[facility] Qwqwbyyjbg9342 [place] [id number]. Antonella Medrano Glucose [Mass/Vol] 440 mg/dL Critically high 74-106 [facility] Comment on above: Performed By: #### P OCGLUC ####[facility] Uthxlluovs9650 [place] [address]Dr. Mariafilemon Medrano Glucose [Mass/Vol] 341 mg/dL Critically high 74-106 [facility] Comment on above: Performed By: #### P OCGLUC ####[facility] Xzmyitmwbf2118 [place] [address]Dr. Antonella Medrano Glucose [Mass/Vol] 451 mg/dL Critically high 74-106 [facility] Comment on above: Performed By: #### P OCGLUC ####[facility] Noahmutnqp1403 [place] [address]Dr. Antonella Medrano PROF 14(COMP METB)on 023 Albumin [Mass/Vol] 2.4 g/dL Critically low 3.4-5.0 [facility] Comment on above: Performed By: #### C MP ####[facility] Tfygpipzsq7213 [place] [address]Dr. Antonella Medrano Albumin/Globulin [Mass ratio] 0.8 {ratio} Normal [facility] Comment on above: Performed By: #### C MP ####[facility] Hedxaijhjw3409 [place] [address]Dr. Antonella Medrano ALP [Catalytic activity/Vol] 121 U/L Critically high 46-116 [facility] Comment on above: Performed By: #### C MP ####[facility] Vgrettvwio9526 [place] [address]Dr. Antonella Medrano ALT [Catalytic activity/Vol] 17 U/L Normal 14-59 [facility] Comment on above: Performed By: #### C MP ####[facility] Gmvxeumgjo9216 [place] [address]Dr. Antonella Medrano Anion gap [Moles/Vol] 11.7 mmol/L Normal [facility] Comment on above: Performed By: #### C MP ####[facility] Sdekcmuvzr1527 [place] [address]Dr. Antonella Medrano AST [Catalytic activity/Vol] 15 U/L Normal 15-37 [facility] Comment on above: Performed By: #### C MP ####[facility] Voloyeelzd[address] [place], [place] [address]Dr. Antonella Medrano Bilirubin [Mass/Vol] 0.4 mg/dL Normal 0.2-1.0 [facility] Comment on above: Performed By: #### C MP ####[facility] Hqltykeimp[address] [place], [place] [address]Dr. Antonella Medarno Calcium [Mass/Vol] 8.3 mg/dL Critically low 8.5-10.1 [facility] Comment on above: Performed By: #### C MP ####[facility] Jjxgyjeobx[address] [place], [place] [address]Dr. Antonella Medrano Chloride [Moles/Vol] 102 mmol/L Normal 98-107 [facility] Comment on above: Performed By: #### C MP ####[facility] Lkqcheqzkd7[address] [place], [place] [address]Dr. Antonella Medrano CO2 [Moles/Vol] 26.4 mmol/L Normal 21.0-32.0 [facility] Comment on above: Performed By: #### C MP ####[facility] Bjcdulcetr818[address] [place], [place] [address]Dr. Antonella Medrano Creatinine [Mass/Vol] 0.92 mg/dL Normal 0.55-1.02 [facility] Comment on above: Performed By: #### C MP ####[facility] Rmibdwrlap4[address] [place], [place] [address]Dr. Antonella Medrano EGFR-AF IVORIAN >60 Normal >=60 [facility] Comment on above: Performed By: #### C MP ####[facility] Ajyuyxxbwu9987 [place] [id number]. Antonella Medrano EGFR-NON AF IVORIAN >60 Normal >=60 [facility] Comment on above: Performed By: #### C MP ####[facility] Bgqqmvmqor5825 [place] [id number]. Antonella Medrano Globulin (S) [Mass/Vol] 3.0 g/dL Normal [facility] Comment on above: Performed By: #### C MP ####[facility] Oihpjgoqmw2648 [place] [address]Dr. Antonella Medrano Glucose [Mass/Vol] 285 mg/dL Critically high 74-106 [facility] Comment on above: Performed By: #### C MP ####[facility] Igdhvfjxeo8003 [place] [address]Dr. Antonella Medrano Potassium [Moles/Vol] 4.1 mmol/L Normal 3.5-5.1 [facility] Comment on above: Performed By: #### C MP ####[facility] Xgxuxzjpfz[address] [place], [place] [address]Dr. Antonella Medrano Protein [Mass/Vol] 5.4 g/dL Critically low 6.4-8.2 [facility] Comment on above: Performed By: #### C MP ####[facility] Erzvnxixlz98[address] [place], [place] [address]Dr. Antonella Medrano Sodium [Moles/Vol] 136 mmol/L Normal 136-145 [facility] Comment on above: Performed By: #### C MP ####[facility] Nmqdtfvxsf4854 [place] [address]Dr. Antonella Medrano Urea nitrogen [Mass/Vol] 14.0 mg/dL Normal 7.0-18.0 [facility] Comment on above: Performed By: #### C MP ####[facility] Lqmjdbcqlz[address] [place], [place] [address]Dr. Antonella Medrano Urea nitrogen/Creatinine [Mass ratio] 15.2 mg/mg Normal [facility] Comment on above: Performed By: #### C MP ####[facility] Mdoddxnsag6529 [place] [address]Dr. Antonella Medrano BLOOD GASES BTYon 11-08-2022 02 MODE ROOM AIR Normal [facility] Comment on above: Performed By: #### A BG ####[facility] Yelofwoqbk756[address] [place], [place] [address]Dr. Antonella Medrano ALLENS TEST Positive Normal [facility] Comment on above: Performed By: #### A BG ####[facility] Mfjclfiyfc[address] [place], [place] [address]Dr. Antonella Medrano Base excess Calc (Bld) [Moles/Vol] 1.5 mmol/L Normal -2.0-2.0 [facility] Comment on above: Performed By: #### A BG ####[facility] Mxvkefiugh[address] [place], [place] [address]Dr. Antonella Medrano BIPAP PRESSURE Normal [facility] Comment on above: Performed By: #### A BG ####[facility] Wxbpxdywim897[address] [place], [place] [address]Dr. Antonella Medrano CPAP [facility] Comment on above: Performed By: #### A BG ####[facility] Vlrfkvtayn9[address] [place], [place] [address]Dr. Antonella Medrano FIO2 Normal [facility] Comment on above: Performed By: #### A BG ####[facility] Mpdkzobelr8[address] [place], [place] [address]Dr. Antonella Medrano HCO3 (Bld) [Moles/Vol] 26.1 mmol/L Critically high 22.0-26 .0 [facility] Comment on above: Performed By: #### A BG ####[facility] Zmjqcynxqd876[address] [place], [place] [address]Dr. Antonella Medrano LPM Normal [facility] Comment on above: Performed By: #### A BG ####[facility] Ijqcwpqttr40[address] [place], [place] [address]Dr. Antonella Medrano MINUTE VOLUME Normal [facility] Comment on above: Performed By: #### A BG ####[facility] Annzfadbsb029[address] [place], [place] [address]Dr. Antonella Medrano Oxygen (Bld) [Partial pressure] 78.1 mm[Hg] Critically low 80.0-100.0 [facility] Comment on above: Performed By: #### A BG ####[facility] Wnpflxhkza66[address] [place], [place] [address]Dr. Antonella Medrano Oxygen saturation in Blood 97.0 % Normal 95.0-100.0 [facility] Comment on above: Performed By: #### A BG ####[facility] Tjhqjuoeph[address] [place], [place] [address]Dr. Antonella Medrano PCO2 41.0 mmHg Normal 35.0-45.0 [facility] Comment on above: Performed By: #### A BG ####[facility] Gtokmusqox08[address] [place], [place] [address]Dr. Antonella Medrano PEEP [facility] Comment on above: Performed By: #### A BG ####[facility] Fjpreenukr9[address] [place], [place] [address]Dr. Antonella Medrano pH (Bld) 7.412 [pH] Normal 7.350-7.450 [facility] Comment on above: Performed By: #### A BG ####[facility] Ahazzekhna7[address] [place], [place] [address]Dr. Antonella Medrano PIP [facility] Comment on above: Performed By: #### A BG ####[facility] Mnmxelwtis[address] [place], [place] [address]Dr. Antonella Medrano PS [facility] Comment on above: Performed By: #### A BG ####[facility] Ewotlndqoa13[address] [place], [place] [address]Dr. Antonella Medrano PUNCTURE SITE RR [facility] Comment on above: Performed By: #### A BG ####[facility] Xldhpgrbnj[address] [place], [place] [address]Dr. Antonella Medrano RATE [facility] Comment on above: Performed By: #### A BG ####[facility] Ilorbxodoj27[address] [place], [place] [address]Dr. Antonella Medrano VENT MODE [facility] Comment on above: Performed By: #### A BG ####[facility] Pnkedbmuzw8093 [place] [id number]. Antonella Medrano [place] Normal [facility] Comment on above: Performed By: #### A BG ####[facility] Ahximkdqps4926 [place] [id number]. Antonella Medrano CBC AUTO DIFFon 11-08-2022 BASO # 0.1 103/ul Normal 0.0-0.1 [facility] Comment on above: Performed By: #### C BC ####[facility] Bwypxwffci0712 [place] [id number]. Antonella Medrano Basophils/100 WBC (Bld) 0.7 % Normal 0.2-2.0 [facility] Comment on above: Performed By: #### C BC ####[facility] Bpwavnojws[address] [place], [place] [address]Dr. Antonella Medrano EO # 0.3 103/ul Normal 0.0-0.7 [facility] Comment on above: Performed By: #### C BC ####[facility] Gmibgqetvr[address] [place], [place] [address]Dr. Antonella Medrano Eosinophils/100 WBC (Bld) 4.5 % Normal 0.9-7.0 [facility] Comment on above: Performed By: #### C BC ####[facility] Yvxjjciufu[address] [place], [place] [address]Dr. Antonella Medrano Erythrocyte distribution width (RBC) [Ratio] 13.2 % Normal 11.0-15.0 [facility] Comment on above: Performed By: #### C BC ####[facility] Zhbvhwgvvv[address] [place], [place] [address]Dr. Antonella Medrano Hematocrit (Bld) [Volume fraction] 46.0 % Normal 36.0-48.0 [facility] Comment on above: Performed By: #### C BC ####[facility] Zskykyctpi[address] [place], [place] [address]Dr. Antonella Medrano Hemoglobin (Bld) [Mass/Vol] 15.5 g/dL Normal 12.0-16.0 [facility] Comment on above: Performed By: #### C BC ####[facility] Fusdptkwmp7726 [place] [id number]. Antonella Medrano IG # 0.09 10e3/ul Critically high 0.00-0.03 [facility] Comment on above: Performed By: #### C BC ####[facility] Fstkhkyfon3048 [place] [id number]. Antonella Medrano IG % 1.2 % Critically high 0.0-0.5 [facility] Comment on above: Performed By: #### C BC ####[facility] Funffnrfis6368 [place] [address]Dr. Antonella Medrano LYMPH # 1.9 103/ul Normal 1.2-3.8 [facility] Comment on above: Performed By: #### C BC ####[facility] Quppanlupk6526 [place] [address]Dr. Antonella Medrano Lymphocytes/100 WBC (Bld) 25.9 % Normal 20.5-60.0 [facility] Comment on above: Performed By: #### C BC ####[facility] Vlldfttibf3518 [place] [address]Dr. Antonella Medrano MANUAL DIFF REQ NO Normal [facility] Comment on above: Performed By: #### C BC ####[facility] Vmnpgcnkdk4675 [place] [address]Dr. Antonella Medrano MCH (RBC) [Entitic mass] 28.7 pg Normal 26.7-34.0 [facility] Comment on above: Performed By: #### C BC ####[facility] Eiibhqhrqa[address] [place], [place] [address]Dr. Antonella Medrano MCHC (RBC) [Mass/Vol] 33.7 g/dL Normal 29.9-35.2 [facility] Comment on above: Performed By: #### C BC ####[facility] Aqfdzanjwx[address] [place] [address]Dr. Antonella Medrano MCV (RBC) [Entitic vol] 85.2 fL Normal 81.0-99.0 [facility] Comment on above: Performed By: #### C BC ####[facility] Fmerqkcxdv6652 [place] [id number]. Antonella Medrano MONO # 0.7 103/ul Normal 0.3-0.8 [facility] Comment on above: Performed By: #### C BC ####[facility] Bqlgwpluon2120 [place] [id number]. Antonella Medrano Monocytes/100 WBC (Bld) 9.4 % Normal 1.7-12.0 [facility] Comment on above: Performed By: #### C BC ####[facility] Oayukexkts7[address] [place] [id number]. Antonella Medrano NEUT # 4.3 103/ul Normal 1.4-6.5 [facility] Comment on above: Performed By: #### C BC ####[facility] Swjpslprwk5630 [place] [id number]. Antonella Medrano Neutrophils/100 WBC (Bld) 58.3 % Normal 43.0-75.0 [facility] Comment on above: Performed By: #### C BC ####[facility] Bhguemkxzl7883 [place] [id number]. Antonella Medrano Platelet mean volume (Bld) [Entitic vol] 10.4 fL Normal 9.5-13.5 [facility] Comment on above: Performed By: #### C BC ####[facility] Ubgyaugnrb9[address] [place] [id number]. Antonella Medrano PLT 301 103/ul Normal 150-450 [facility] Comment on above: Performed By: #### C BC ####[facility] Joyuhvgxil4135 [place] [id number]. Antonella Medrano RBC 5.40 106/ul Normal 4.20-5.40 [facility] Comment on above: Performed By: #### C BC ####[facility] Wiowepcbkw8963 [place] [id number]. Antonella Medrano WBC 7.3 103/ul Normal 4.0-11.0 [facility] Comment on above: Performed By: #### C BC ####[facility] Bnfjyoting[address] [place], [place] [address]Dr. Antonella Medrano CULTURE URINEon 11-08-2022 CULTURE URINE Culture Observations : HEAVY GROWTH OF MIXED GENITAL LUCY. NO POTENTIAL PATHOGENS SEEN. Normal [facility] Comment on above: Performed By: #### U RCX ####[facility] Nnxrrwaxoy6083 [place] [id number]. Antonella Medrano [facility]id-[facility] ([facility]-24 SARS-CoV-2 (COVID-19) RNA TAISHA+probe Ql (Unsp spec) Not detected Normal NOT DETECTED [facility] Comment on above: Result Comment: When [...] for this test is supported by the Executive Director [employer] of Health and Human Service's declaration that [...] be used). Performed By: #### C VDTBH ####[facility] Wxskthxxov6815 [place] [address]Dr. Antonella Medrano ER URINE PROFILEon 3 Bilirubin Ql (U) Negative Normal NEGATIVE [facility] Comment on above: Performed By: #### U MICRO, ERUR ####[facility] Oopbzxsnbi0371 [place] [id number]. Antonella Medrano Clarity (U) CLEAR Normal CLEAR [facility] Comment on above: Performed By: #### U MICRO, ERUR ####[facility] Fvprrtvbzl4236 [place] [id number]. Antonella Medrano Color (U) LT. YELLOW Normal YELLOW [facility] Comment on above: Performed By: #### U MICRO, ERUR ####[facility] Pslsaicuvg8763 [place] [address]Dr. Antonella LABOY A micrscopic examina tion will be performed if indicated. Normal [facility] Comment on above: Performed By: #### U MICRO, ERUR ####[facility] Sleneezxro3136 [place] [address]Dr. Antonella Medrano Glucose Ql (U) >1000 Abnormal NEGATIVE [facility] Comment on above: Performed By: #### U MICRO, ERUR ####[facility] Uzasxmmjmn[address] [place], [place] [address]Dr. Antonella Medrano Hemoglobin Ql (U) SMALL Abnormal NEGATIVE [facility] Comment on above: Performed By: #### U MICRO, ERUR ####[facility] Fgodabvood5[address] [place], [place] [address]Dr. Antonella Medrano Ketones Ql (U) Negative Normal NEGATIVE [facility] Comment on above: Performed By: #### U MICRO, ERUR ####[facility] Tlydbuxfkj[address] [place], [place] [address]Dr. Antonella Medrano LEUKOCYTES TRACE Abnormal NEGATIVE [facility] Comment on above: Performed By: #### U MICRO, ERUR ####[facility] Cgjtacficr[address] [place], [place] [address]Dr. Antonella Medrano Nitrite Ql (U) Negative Normal NEGATIVE [facility] Comment on above: Performed By: #### U MICRO, ERUR ####[facility] Cdtpvsssbz426[address] [place], [place] [address]Dr. Antonella Medrano pH (U) 5.5 [pH] Normal 5-9 [facility] Comment on above: Performed By: #### U MICRO, ERUR ####[facility] Cyoipxusne030[address] [place], [place] [address]Dr. Antonella Medrano Protein (U) [Mass/Vol] 100 mg/dL Abnormal NEGAT LAZ/ TRACE The [facility] Comment on above: Performed By: #### U MICRO, ERUR ####[facility] Ejuudzirnm40[address] [place], [place] [address]Dr. Antonella Medrano SPEC GRAVITY 1.010 Normal 1.005-<=1.0 25 [facility] Comment on above: Performed By: #### U MICRO, ERUR ####[facility] Tqknyljhuj4878 [place] [address]Dr. Antonella Medrano UR MICRO IND INDICATED Normal [facility] Comment on above: Performed By: #### U MICRO, ERUR ####[facility] Qhpwwqskbv3185 [place] [address]Dr. Antonella Medrano Urobilinogen Qn (U) 0.2 {Oleg'U}/dL Normal 0.2 - 1. 0 [facility] Comment on above: Performed By: #### U MICRO, ERUR ####[facility] Qufhpovivr27[address] [place], [place] [address]Dr. Antonella Medrano POINT OF CARE GLUCOSEon 10-24 Glucose [Mass/Vol] 290 mg/dL Critically high 74-106 [facility] Comment on above: Performed By: #### P OCGLUC ####[facility] Rtrqpmfjub[address] [place], [place] [address]Dr. Antonella Medrano PROF 14(COMP METB)on 023 Albumin [Mass/Vol] 3.2 g/dL Critically low 3.4-5.0 [facility] Comment on above: Performed By: #### H STROJAVED, CMP ####[facility] Mtnkykdgdz[address] [place], [place] [address]Dr. Antonella Medrano Albumin/Globulin [Mass ratio] 0.8 {ratio} Normal [facility] Comment on above: Performed By: #### H STROPN, CMP ####[facility] Vadandtmwf3746 [place] [address]Dr. Antonella Medrano ALP [Catalytic activity/Vol] 186 U/L Critically high 46-116 [facility] Comment on above: Performed By: #### H STROPN, CMP ####[facility] Hsoskcawjr8907 [place] [address]Dr. Antonella Medrano ALT [Catalytic activity/Vol] 23 U/L Normal 14-59 [facility] Comment on above: Performed By: #### H STROPN, CMP ####[facility] Llvrcegkgg9519 [place] [address]Dr. Antonella Medrano Anion gap [Moles/Vol] 11.3 mmol/L Normal Th e [facility] Comment on above: Performed By: #### H STROPN, CMP ####[facility] Sregdqdsfc[address] [place], [place] [address]Dr. Antonella Medrano AST [Catalytic activity/Vol] 21 U/L Normal 15-37 [facility] Comment on above: Performed By: #### H STROPN, CMP ####[facility] Bfrgeiyvbv25[address] [place], [place] [address]Dr. Antonella Medrano Bilirubin [Mass/Vol] 0.3 mg/dL Normal 0.2-1.0 [facility] Comment on above: Performed By: #### H STROPN, CMP ####[facility] Buczjwxdmk01[address] [place], [place] [address]Dr. Antonella Medrano Calcium [Mass/Vol] 9.6 mg/dL Normal 8.5-10.1 [facility] Comment on above: Performed By: #### H STROPN, CMP ####[facility] Femrnviaqf[address] [place], [place] [address]Dr. Antonella Medrano Chloride [Moles/Vol] 98 mmol/L Normal 98-107 [facility] Comment on above: Performed By: #### H STROPN, CMP ####[facility] Bkpsauvcvk[address] [place], [place] [address]Dr. Antonella Medrano CO2 [Moles/Vol] 30.0 mmol/L Normal 21.0-32.0 [facility] Comment on above: Performed By: #### H STROPN, CMP ####[facility] Bqfqmywqvt[address] [place], [place] [address]Dr. Antonella Medrano Creatinine [Mass/Vol] 0.75 mg/dL Normal 0.55-1.02 [facility] Comment on above: Performed By: #### H STROPN, CMP ####[facility] Cdpnezjori65[address] [place], [place] [address]Dr. Antonella Medrano EGFR-AF IVORIAN >60 Normal >=60 [facility] Comment on above: Performed By: #### H STROPN, CMP ####[facility] Swelvcuowj85[address] [place] [address]Dr. Antonella Medrano EGFR-NON AF IVORIAN >60 Normal >=60 [facility] Comment on above: Performed By: #### H STROPN, CMP ####[facility] Icvxpnsqfv9825 [place] [address]Dr. Antonella Medrano Globulin (S) [Mass/Vol] 4.0 g/dL Normal [facility] Comment on above: Performed By: #### H STROPN, CMP ####[facility] Yuisfeqaeb0164 [place] [address]Dr. Antonella Medrano Glucose [Mass/Vol] 292 mg/dL Critically high 74-106 [facility] Comment on above: Performed By: #### H STROPN, CMP ####[facility] Oulmjjvvyr35[address] [place], [place] [address]Dr. Antonella Medrano Potassium [Moles/Vol] 4.3 mmol/L Normal 3.5-5.1 [facility] Comment on above: Performed By: #### H STROPN, CMP ####[facility] Jpzyueanyr[address] [place], [place] [address]Dr. Antonella Medrano Protein [Mass/Vol] 7.2 g/dL Normal 6.4-8.2 [facility] Comment on above: Performed By: #### H STROPN, CMP ####[facility] Jkhmjfmvxd[address] [place], [place] [address]Dr. Antonella Medrano Sodium [Moles/Vol] 135 mmol/L Critically low 136-145 [facility] Comment on above: Performed By: #### H STROPN, CMP ####[facility] Pvqxzqbpjs00[address] [place], [place] [address]Dr. Antonella Medrano Urea nitrogen [Mass/Vol] 14.0 mg/dL Normal 7.0-18.0 [facility] Comment on above: Performed By: #### H STROPN, CMP ####[facility] Qrkiynqfsw[address] [place], [place] [address]Dr. Antonella Medrano Urea nitrogen/Creatinine [Mass ratio] 18.7 mg/mg Normal [facility] Comment on above: Performed By: #### H NAI, CMP ####[facility] Yzkqefstfq2609 [place] [address]Dr. Antonella Medrano TROPONIN, HIGH SENSITIVITYon 11-08-2022 HSTROP 69.8 pg/mL Critically high 4.0-51.3 [facility] Comment on above: Result Comment: CUT- OFF POINTS HAVE BEEN ESTABLISHED BASED ON THE FOURTH UNIVERSAL DEFINITIONS OF MYOCARDIALINFARCTION. THE UPPER REFERENCE LIMIT (URL) OF TROPONIN, DEFINED THE 99TH PERCENTILE OFcTnI DISTRIBUTION IN A REFERENCE POPULATION, HAS BEEN CONFIRMED THE DECISION THRESHOLDFOR NH DIAGNOSIS. Performed By: #### H NAI, CMP ####[facility] Isvanntenr[address] [place], [place] [address]Dr. Antonella Medrano Performed By: #### H NAI ####[facility] Akwkiqttqj[address] [place], [place] [address]Dr. Antonella Medrano URINE MICROSCOPIC ONLYon BACTERIA TRACE Abnormal NONE SEEN [facility] Comment on above: Performed By: #### U MICRO, ERUR ####[facility] Nqkcwmbrre[address] [place], [place] [address]Dr. Antonella Medrano Bacteria identified Cx Nom (U) INDICATED Normal [facility] Comment on above: Performed By: #### U MICRO, ERUR ####[facility] [address]vtaalxggc[address] [place], [place] [address]Dr. Antonella Medrano CAST NONE SEEN Normal NONE SEEN [facility] Comment on above: Performed By: #### U MICRO, ERUR ####[facility] Lentqngtbb[address] [place], [place] [address]Dr. Antonella Medrano Crystals LM Nom (Urine sed) NONE SEEN Normal NONE SEEN [facility] Comment on above: Performed By: #### U MICRO, ERUR ####[facility] Mooarzwbwr[address] [place], [place] [address]Dr. Antonella Medrano Epithelial cells LM Ql (Urine sed) FEW Abnormal NONE SEEN /RARE [facility] Comment on above: Performed By: #### U MICRO, ERUR ####[facility] Xwtbrlizxi6875 [place] [id number]. Antonella Medrano MUCOUS NONE SEEN Normal NONE SEEN [facility] Comment on above: Performed By: #### U MICRO, ERUR ####[facility] Umfpaibtgq7974 [place] [id number]. Antonella Medrano RBC 2-5 Abnormal 0-2 [facility] Comment on above: Performed By: #### U MICRO, ERUR ####[facility] Qahowcwumu3548 [place] [address]Dr. Antonella Medrano WBC 10-20 Abnormal NONE SEEN [facility] Comment on above: Performed By: #### U MICRO, ERUR ####[facility] Invobgidbp2923 [place] [address]Dr. Antonella Mitchell YEAST PRESENT Abnormal NONE SEEN [facility] Comment on above: Result Comment: 3+ b udding Performed By: #### U MICRO, ERUR ####[facility] Hkfguvcxms[address] [place], [place] [address]Dr. Antonella Medrano XR CHEST 2 Von 11-08-2022 XR CHEST 2 V Normal [facility] XR CHEST 1 Von 08-23-2022 XR CHEST 1 V Normal [facility] CULTURE URINEon 08-02-2022 CULTURE URINE Normal [facility] Comment on above: Performed By: #### U RCX ####[facility] Ktsapvlcme6660 [place] [address]Dr. Antonella Medrano CBC AUTO DIFFon 07-31-2022 BASO # 0.0 103/ul Normal 0.0-0.1 [facility] Comment on above: Performed By: #### C BC ####[facility] Rgfidqxeho3151 [place] [address]Dr. Antonella Mitchell Basophils/100 WBC (Bld) 0.4 % Normal 0.2-2.0 [facility] Comment on above: Performed By: #### C BC ####[facility] Mwzxfuxfbu9054 [place] [address]Dr. Mariafilemon Medrano EO # 0.1 103/ul Normal 0.0-0.7 [facility] Comment on above: Performed By: #### C BC ####[facility] Ajonvkjvgu1352 [place] [address]Dr. Antonella Medrano Eosinophils/100 WBC (Bld) 1.3 % Normal 0.9-7.0 [facility] Comment on above: Performed By: #### C BC ####[facility] Xeevznthym6736 [place] [address]Dr. Antonella Medrano Erythrocyte distribution width (RBC) [Ratio] 13.4 % Normal 11.0-15.0 [facility] Comment on above: Performed By: #### C BC ####[facility] Akxuhjcykh[address] [place], [place] [address]Dr. Antonella Medrano Hematocrit (Bld) [Volume fraction] 43.4 % Normal 36.0-48.0 [facility] Comment on above: Performed By: #### C BC ####[facility] Kesqvqcwfp[address] [place], [place] [address]Dr. Antonella Medrano Hemoglobin (Bld) [Mass/Vol] 14.6 g/dL Normal 12.0-16.0 [facility] Comment on above: Performed By: #### C BC ####[facility] Jxxfnubvel134[address] [place], [place] [address]Dr. Antonella Medrano IG # 0.05 10e3/ul Critically high 0.00-0.03 [facility] Comment on above: Performed By: #### C BC ####[facility] Rjcugjruvt17[address] [place], [place] [address]Dr. Antonella Medrano IG % 0.6 % Critically high 0.0-0.5 [facility] Comment on above: Performed By: #### C BC ####[facility] Zkjqrgjszl6[address] [place], [place] [address]Dr. Antonella Medrano LYMPH # 1.0 103/ul Critically low 1.2-3.8 [facility] Comment on above: Performed By: #### C BC ####[facility] Hjsyujqwuq750[address] [place], [place] [address]Dr. Antonella Medrano Lymphocytes/100 WBC (Bld) 13.4 % Critically low 20.5-60.0 [facility] Comment on above: Performed By: #### C BC ####[facility] Wciwuopkwc2365 [place] [address]DrGerman Medrano MANUAL DIFF REQ NO Normal [facility] Comment on above: Performed By: #### C BC ####[facility] Yuvjfoefyj1167 [place] [id number]. Antonella Medrano MCH (RBC) [Entitic mass] 28.9 pg Normal 26.7-34.0 [facility] Comment on above: Performed By: #### C BC ####[facility] Kvybngflpq0829 [place] [address]Dr. Antonella Medrano MCHC (RBC) [Mass/Vol] 33.6 g/dL Normal 29.9-35.2 [facility] Comment on above: Performed By: #### C BC ####[facility] Ifrntiwfmd24[address] [place], [place] [address]Dr. Antonella Medrano MCV (RBC) [Entitic vol] 85.9 fL Normal 81.0-99.0 [facility] Comment on above: Performed By: #### C BC ####[facility] Woxtpsdkmn[address] [place], [place] [address]DrGerman Medrano MONO # 0.7 103/ul Normal 0.3-0.8 [facility] Comment on above: Performed By: #### C BC ####[facility] Vgbnzviwkt[address] [place], [place] [address]Dr. Antonella Medrano Monocytes/100 WBC (Bld) 9.0 % Normal 1.7-12.0 [facility] Comment on above: Performed By: #### C BC ####[facility] Xyndqpizia[address] [place], [place] [address]DrGerman Medrano NEUT # 5.9 103/ul Normal 1.4-6.5 [facility] Comment on above: Performed By: #### C BC ####[facility] Taedhzlgpy[address] [place], [place] [address]DrGerman Medrano Neutrophils/100 WBC (Bld) 75.3 % Critically high 43.0-75.0 [facility] Comment on above: Performed By: #### C BC ####[facility] Kxnwgsgrhe8910 [place] [address]Dr. Antonella Medrano Platelet mean volume (Bld) [Entitic vol] 10.9 fL Normal 9.5-13.5 [facility] Comment on above: Performed By: #### C BC ####[facility] Bxebqmtlsk3469 [place] [address]Dr. Antonella Medrano PLT 245 103/ul Normal 150-450 [facility] Comment on above: Performed By: #### C BC ####[facility] Kxcbvinggk1454 [place] [address]Dr. Antonella Medrano RBC 5.05 106/ul Normal 4.20-5.40 [facility] Comment on above: Performed By: #### C BC ####[facility] Lynjepjabf8837 [place] [address]Dr. Antonella Medrano WBC 7.8 103/ul Normal 4.0-11.0 [facility] Comment on above: Performed By: #### C BC ####[facility] Rsccoxoxsq0248 [place] [address]Dr. Antonella Medrano CT CSPINE WO CONon 2 CT CSPINE WO CON Normal [facility] ER URINE PROFILEon 2 Bilirubin Ql (U) Negative Normal NEGATIVE [facility] Comment on above: Performed By: #### U MICRO, ERUR ####[facility] Goqgpnhkey7412 [place] [address]Dr. Antonella Medrano Clarity (U) CLEAR Normal CLEAR [facility] Comment on above: Performed By: #### U MICRO, ERUR ####[facility] Xnhvrooskk0430 [place] [address]Dr. Antonella Medrano Color (U) LT. YELLOW Normal YELLOW [facility] Comment on above: Performed By: #### U MICRO, ERUR ####[facility] Usjbpkzhmg5790 [place] [address]Dr. Antonella Medrano ERUAHD A micrscopic examina tion will be performed if indicated. Normal [facility] Comment on above: Performed By: #### U MICRO, ERUR ####[facility] Mhsabstrbd0448 [place] [address]Dr. Antonella Medrano Glucose Ql (U) >1000 Abnormal NEGATIVE [facility] Comment on above: Performed By: #### U MICRO, ERUR ####[facility] Ufdlkuwfyh9495 [place] [address]Dr. Antonella Medrano Hemoglobin Ql (U) SMALL Abnormal NEGATIVE [facility] Comment on above: Performed By: #### U MICRO, ERUR ####[facility] Wowcilvjnp687[address] [place], [place] [address]Dr. Antonella Medrano Ketones Ql (U) Negative Normal NEGATIVE [facility] Comment on above: Performed By: #### U MICRO, ERUR ####[facility] Zvoxsecfxs93[address] [place], [place] [address]Dr. Antonella Medrano LEUKOCYTES Negative Normal NEGATIVE [facility] Comment on above: Performed By: #### U MICRO, ERUR ####[facility] Tujeejxxds9[address] [place], [place] [address]Dr. Mariafilemon Medrano Nitrite Ql (U) Negative Normal NEGATIVE [facility] Comment on above: Performed By: #### U MICRO, ERUR ####[facility] Nkhcprflpn55[address] [place], [place] [address]Dr. Antonella Medrano pH (U) 5.5 [pH] Normal 5-9 [facility] Comment on above: Performed By: #### U MICRO, ERUR ####[facility] Rclanubdmy15[address] [place], [place] [address]Dr. Mariafilemon Medrano Protein (U) [Mass/Vol] 30 mg/dL Abnormal NEGAT LAZ/ TRACE [facility] Comment on above: Performed By: #### U MICRO, ERUR ####[facility] Xdslrtjbki18[address] [place], [place] [address]Dr. Antonella Medrano SPEC GRAVITY 1.010 Normal 1.005-<=1.0 25 [facility] Comment on above: Performed By: #### U MICRO, ERUR ####[facility] Hvokgqpain8781 [place] [address]Dr. Antonella Medrano UR MICRO IND INDICATED Normal [facility] Comment on above: Performed By: #### U MICRO, ERUR ####[facility] Luewcnoaic19[address] [place], [place] [address]Dr. Antonella Medrano Urobilinogen Qn (U) 0.2 {Oleg'U}/dL Normal 0.2 - 1. 0 [facility] Comment on above: Performed By: #### U MICRO, ERUR ####[facility] Hijkvkuxdh9[address] [place], [place] [address]Dr. Antonella Medrano PROF 14(COMP METB)on 022 Albumin [Mass/Vol] 3.0 g/dL Critically low 3.4-5.0 Th e [facility] Comment on above: Performed By: #### C MP ####[facility] Zfculefbsr97[address] [place], [place] [address]Dr. Antonella Medrano Albumin/Globulin [Mass ratio] 0.8 {ratio} Normal [facility] Comment on above: Performed By: #### C MP ####[facility] Imdkuitptr[address] [place], [place] [address]Dr. Antonella Medrano ALP [Catalytic activity/Vol] 136 U/L Critically high 46-116 [facility] Comment on above: Performed By: #### C MP ####[facility] Rnexyshpvh[address] [place], [place] [address]Dr. Antonella Medrano ALT [Catalytic activity/Vol] 11 U/L Critically low 14-59 [facility] Comment on above: Performed By: #### C MP ####[facility] Gyzdovnrke[address] [place], [place] [address]Dr. Antonella Medrano Anion gap [Moles/Vol] 7.7 mmol/L Normal [facility] Comment on above: Performed By: #### C MP ####[facility] Xdzfzvhqri874[address] [place], [place] [address]Dr. Antonella Medrano AST [Catalytic activity/Vol] 12 U/L Critically low 15-37 [facility] Comment on above: Performed By: #### C MP ####[facility] Vpzaxkrxof8[address] [place] [id number]. Antonella Medrano Bilirubin [Mass/Vol] 0.3 mg/dL Normal 0.2-1.0 [facility] Comment on above: Performed By: #### C MP ####[facility] Csfttxkgln6585 [place] [address]Dr. Antonella Medrano Calcium [Mass/Vol] 8.5 mg/dL Normal 8.5-10.1 [facility] Comment on above: Performed By: #### C MP ####[facility] Qbtymcdzvl5189 [place] [id number]. Antonella Medrano Chloride [Moles/Vol] 100 mmol/L Normal 98-107 [facility] Comment on above: Performed By: #### C MP ####[facility] Lebpmwlskz59[address] [place] [address]Dr. Antonella Medrano CO2 [Moles/Vol] 27.2 mmol/L Normal 21.0-32.0 [facility] Comment on above: Performed By: #### C MP ####[facility] Vldsnqwfqk0273 [place] [address]Dr. Antonella Medrano Creatinine [Mass/Vol] 1.02 mg/dL Normal 0.55-1.02 [facility] Comment on above: Performed By: #### C MP ####[facility] Beozvaqwsd3336 [place] [address]Dr. Antonella Medrano EGFR-AF IVORIAN >60 Normal >=60 [facility] Comment on above: Performed By: #### C MP ####[facility] Pkryfdgdnb1480 [place] [id number]. Antonella Medrano EGFR-NON AF IVORIAN 54 mL/min/1.73m2 Critically low >=60 [facility] Comment on above: Performed By: #### C MP ####[facility] Jagpvxmwpd5946 [place] [address]Dr. Antonella Medrano Globulin (S) [Mass/Vol] 3.6 g/dL Normal [facility] Comment on above: Performed By: #### C MP ####[facility] Wggsgbvwko[address] [place], [place] [id number]. Antonella Medrano Glucose [Mass/Vol] 453 mg/dL Critically high 74-106 [facility] Comment on above: Performed By: #### C MP ####[facility] Pdztcnlcej0507 [place] [address]Dr. Antonella Medrano Potassium [Moles/Vol] 3.9 mmol/L Normal 3.5-5.1 [facility] Comment on above: Performed By: #### C MP ####[facility] Puomtqvdla[address] [place], [place] [address]Dr. Antonella Medrano Protein [Mass/Vol] 6.6 g/dL Normal 6.4-8.2 [facility] Comment on above: Performed By: #### C MP ####[facility] Tprlodkqxt99[address] [place], [place] [address]Dr. Antonella Medrano Sodium [Moles/Vol] 131 mmol/L Critically low 136-145 [facility] Comment on above: Performed By: #### C MP ####[facility] Fmlptowpaf1330[address] [place], [place] [address]Dr. Mariafilemon Medrano Urea nitrogen [Mass/Vol] 27.0 mg/dL Critically high 7.0-18.0 [facility] Comment on above: Performed By: #### C MP ####[facility] Sfovdqvsmd7[address] [place], [place] [address]Dr. Antonella Medrano Urea nitrogen/Creatinine [Mass ratio] 26.5 mg/mg Normal [facility] Comment on above: Performed By: #### C MP ####[facility] Javdnrfmgg4604[address] [place], [place] [address]Dr. Antonella Medrano URINE MICROSCOPIC ONLYon BACTERIA TRACE Abnormal NONE SEEN [facility] Comment on above: Performed By: #### U MICRO, ERUR ####[facility] Nhenuipwpd27[address] [place], [place] [address]Dr. Antonella Medrano Bacteria identified Cx Nom (U) INDICATED Normal [facility] Comment on above: Performed By: #### U MICRO, ERUR ####[facility] Jqiobegmpr8280[address] [place], [place] [address]Dr. Antonella Medrano CAST NONE SEEN Normal NONE SEEN [facility] Comment on above: Performed By: #### U MICRO, ERUR ####[facility] Eysjzpynye750[address] [place] [address]Dr. Antonella Medrano Crystals LM Nom (Urine sed) NONE SEEN Normal NONE SEEN [facility] Comment on above: Performed By: #### U MICRO, ERUR ####[facility] Srfikpgydp8846 [place] [address]Dr. Antonella Medrano Epithelial cells LM Ql (Urine sed) RARE Normal NONE SEEN /RARE [facility] Comment on above: Performed By: #### U MICRO, ERUR ####[facility] Baswlaetbl2909 [place] [address]Dr. Antonella Medrano MUCOUS NONE SEEN Normal NONE SEEN [facility] Comment on above: Performed By: #### U MICRO, ERUR ####[facility] Wpolpkqpqz6552 [place] [address]Dr. Antonella Medrano RBC NONE SEEN Abnormal 0-2 [facility] Comment on above: Performed By: #### U MICRO, ERUR ####[facility] Yfeaeyxumv4300 [place] [address]Dr. Antonella Medrano WBC 5-10 Abnormal NONE SEEN [facility] Comment on above: Performed By: #### U MICRO, ERUR ####[facility] Inneynhizc1629 [place] [address]Dr. Antonella Medrano YEAST PRESENT Abnormal NONE SEEN [facility] Comment on above: Performed By: #### U MICRO, ERUR ####[facility] Ileverdrmg1300 [place] [address]Dr. Antonella Medrano Follow-Upon 07-18-2022 Follow-Up [id number] Rylan Blanc 1955 F Date Provider Department Center 07/18/2022 FANY JACOBS [facility] No family history on file Level of Service:10481 [place] OFFICE/OUTPATIENT ESTABLISHED MOD MDM 30-39 MIN Reason for Visit and Comments: Edema [[id number]] Coronary Artery Disease [187] Normal [facility] PROF CHEM 8 (BAS METB)on Anion gap [Moles/Vol] 12.7 mmol/L Normal [facility] Comment on above: Performed By: #### B MP ####[facility] Vsskgkvmxn[address] [place], [place] [address]Dr. Antonella Medrano Calcium [Mass/Vol] 9.4 mg/dL Normal 8.5-10.1 [facility] Comment on above: Performed By: #### B MP ####[facility] Zgsugwdydq50[address] [place], [place] [address]Dr. Antonella Medrano Chloride [Moles/Vol] 96 mmol/L Critically low 98-107 [facility] Comment on above: Performed By: #### B MP ####[facility] Iwrhksdhmg456[address] [place], [place] [address]Dr. Antonella Medrano CO2 [Moles/Vol] 28.2 mmol/L Normal 21.0-32.0 [facility] Comment on above: Performed By: #### B MP ####[facility] Mmckxpvgwg679[address] [place], [place] [address]Dr. Antonella Medrano Creatinine [Mass/Vol] 0.89 mg/dL Normal 0.55-1.02 [facility] Comment on above: Performed By: #### B MP ####[facility] Ozwazkofld2264[address] [place], [place] [address]Dr. Antonella Medrano EGFR-AF IVORIAN >60 Normal >=60 [facility] Comment on above: Performed By: #### B MP ####[facility] Asvgglwsct66[address] [place], [place] [address]Dr. Antonella Medrano EGFR-NON AF IVORIAN >60 Normal >=60 [facility] Comment on above: Performed By: #### B MP ####[facility] Nzciasqeok14[address] [place], [place] [address]Dr. Antonella Medrano Glucose [Mass/Vol] 395 mg/dL Critically high 74-106 [facility] Comment on above: Performed By: #### B MP ####[facility] Rlqnvlhzsz9020[address] [place], [place] [address]Dr. Antonella Medrano Potassium [Moles/Vol] 4.9 mmol/L Normal 3.5-5.1 [facility] Comment on above: Performed By: #### B MP ####[facility] Sqwzojuwnu448[address] [place], [place] [address]Dr. Antonella Medrano Sodium [Moles/Vol] 132 mmol/L Critically low 136-145 [facility] Comment on above: Performed By: #### B MP ####[facility] Dsrzplktcm709[address] [place], [place] [address]Dr. Antonella Medrano Urea nitrogen [Mass/Vol] 29.0 mg/dL Critically high 7.0-18.0 [facility] Comment on above: Performed By: #### B MP ####[facility] Cqkjszrlws093[address] [place], [place] [address]Dr. Antonella Medrano Urea nitrogen/Creatinine [Mass ratio] 32.6 mg/mg Normal [facility] Comment on above: Performed By: #### B MP ####[facility] Dpxbgwpomz770[address] [place], [place] [address]Dr. Antonella Medrano POINT OF CARE GLUCOSEon 04-24 Glucose [Mass/Vol] 113 mg/dL Critically high 74-106 [facility] Comment on above: Performed By: #### P OCGLUC ####[facility] Pxvfzlcykd029[address] [place], [place] [address]Dr. Antonella Medrano Glucose [Mass/Vol] 82 mg/dL Normal 74-106 [facility] Comment on above: Performed By: #### P OCGLUC ####[facility] Slujnydzef[address] [place], [place] [address]Dr. Antonella Medrano PROF 14(COMP METB)on 022 Albumin [Mass/Vol] 2.2 g/dL Critically low 3.4-5.0 [facility] Comment on above: Performed By: #### C MP ####[facility] Qpzjmktruw0[address] [place], [place] [address]Dr. Antonella Medrano Albumin/Globulin [Mass ratio] 0.7 {ratio} Normal [facility] Comment on above: Performed By: #### C MP ####[facility] Vreupfymyq6345 [place] [address]Dr. Antonella Medrano ALP [Catalytic activity/Vol] 80 U/L Normal 46-116 [facility] Comment on above: Performed By: #### C MP ####[facility] Qetceqzfkl6[address] [place], [place] [address]Dr. Antonella Medrano ALT [Catalytic activity/Vol] 9 U/L Critically low 14-59 [facility] Comment on above: Performed By: #### C MP ####[facility] Wokaeccnec2685[address] [place], [place] [address]Dr. Antonella Mitchell Anion gap [Moles/Vol] 10.4 mmol/L Normal [facility] Comment on above: Performed By: #### C MP ####[facility] Xifbjmpaix7232[address] [place], [place] [address]Dr. Antonella Mitchell AST [Catalytic activity/Vol] 13 U/L Critically low 15-37 [facility] Comment on above: Performed By: #### C MP ####[facility] Urpvhdrrkf8766[address] [place], [place] [address]Dr. Antonella Mitchell Bilirubin [Mass/Vol] 0.3 mg/dL Normal 0.2-1.0 [facility] Comment on above: Performed By: #### C MP ####[facility] Ruijwnlhjt677[address] [place], [place] [address]Dr. Antonella Mitchell Calcium [Mass/Vol] 7.9 mg/dL Critically low 8.5-10.1 [facility] Comment on above: Performed By: #### C MP ####[facility] Hfmxmxlkle8217[address] [place], [place] [address]Dr. Mariafilemon Medrano Chloride [Moles/Vol] 107 mmol/L Normal 98-107 [facility] Comment on above: Performed By: #### C MP ####[facility] Ycejyaycsx6[address] [place], [place] [address]Dr. Antonella Medrano CO2 [Moles/Vol] 20.6 mmol/L Critically low 21.0-32.0 [facility] Comment on above: Performed By: #### C MP ####[facility] Vutrbvjiwy[address] [place], [place] [address]Dr. Antonella Mitchell Creatinine [Mass/Vol] 0.88 mg/dL Normal 0.55-1.02 [facility] Comment on above: Performed By: #### C MP ####[facility] Fagcyybjxx1608 [place] [address]Dr. Antonella Mitchell EGFR-AF IVORIAN >60 Normal >=60 [facility] Comment on above: Performed By: #### C MP ####[facility] Behyaowygt1696 [place] [address]Dr. Antonella Mitchell EGFR-NON AF IVORIAN >60 Normal >=60 [facility] Comment on above: Performed By: #### C MP ####[facility] Xfcyvpzpyp[address] [place], [place] [address]Dr. Antonella Medrano Globulin (S) [Mass/Vol] 3.0 g/dL Normal [facility] Comment on above: Performed By: #### C MP ####[facility] Hvpruqzsxv9625[address] [place], [place] [address]Dr. Antonella Medrano Glucose [Mass/Vol] 120 mg/dL Critically high 74-106 [facility] Comment on above: Performed By: #### C MP ####[facility] Zyoqmqjfck24[address] [place], [place] [address]Dr. Antonella Medrano Potassium [Moles/Vol] 4.0 mmol/L Normal 3.5-5.1 [facility] Comment on above: Performed By: #### C MP ####[facility] Vrknyosqxf4[address] [place], [place] [address]Dr. Antonella Medrano Protein [Mass/Vol] 5.2 g/dL Critically low 6.4-8.2 [facility] Comment on above: Performed By: #### C MP ####[facility] Igulzhdubr5457[address] [place], [place] [address]Dr. Antonella Medrano Sodium [Moles/Vol] 134 mmol/L Critically low 136-145 [facility] Comment on above: Performed By: #### C MP ####[facility] Hrrsradmrc276[address] [place], [place] [address]Dr. Antonella Medrano Urea nitrogen [Mass/Vol] 25.0 mg/dL Critically high 7.0-18.0 [facility] Comment on above: Performed By: #### C MP ####[facility] Bxpfcdfdli8213[address] [place], [place] [address]Dr. Antonella Medrano Urea nitrogen/Creatinine [Mass ratio] 28.4 mg/mg Normal [facility] Comment on above: Performed By: #### C MP ####[facility] Rsyowxwvva[address] [place], [place] [address]Dr. Antonella Medrano AMMONIAon 05-13-2022 Ammonia (P) [Moles/Vol] 24 umol/L Normal -32 [facility] Comment on above: Performed By: #### A MM ####[facility] Nbafcjkjsm8[address] [place], [place] [address]Dr. Antonella Medrano BLOOD GASES BTYon 05-13-2022 02 MODE ROOM AIR [facility] Comment on above: Performed By: #### A BG ####[facility] Stteywtiaj12[address] [place], [place] [address]Dr. Antonella Medrano ALLENS TEST Positive [facility] Comment on above: Performed By: #### A BG ####[facility] Lsyxpymqzz074[address] [place], [place] [address]Dr. Antonella Medrano Base excess Calc (Bld) [Moles/Vol] 0.7 mmol/L Normal -2.0-2.0 [facility] Comment on above: Performed By: #### A BG ####[facility] Teloxzmmxt24112[address] [place], [place] [address]Dr. Antonella Medrano BIPAP PRESSURE Normal [facility] Comment on above: Performed By: #### A BG ####[facility] Gvaeuwuwal17[address] [place], [place] [address]Dr. Antonella Medrano CPAP [facility] Comment on above: Performed By: #### A BG ####[facility] Gfroucteus368[address] [place], [place] [address]Dr. Antonella Medrano FIO2 Normal [facility] Comment on above: Performed By: #### A BG ####[facility] Xpjrvnbaps5640[address] [place], [place] [address]Dr. Antonella Medrano HCO3 (Bld) [Moles/Vol] 24.4 mmol/L Normal 22.0-26.0 [facility] Comment on above: Performed By: #### A BG ####[facility] Mqvckwiyra6738 [place] [address]Dr. Antonella Medrano LPM Normal [facility] Comment on above: Performed By: #### A BG ####[facility] Objqbpfsxc09112[address] [place], [place] [address]Dr. Antonella Medrano MINUTE VOLUME Normal [facility] Comment on above: Performed By: #### A BG ####[facility] Ukuzxlkwlh0915[address] [place], [place] [address]DrGerman Medrano Oxygen (Bld) [Partial pressure] 36.8 mm[Hg] Critically low 80.0-100.0 [facility] Comment on above: Result Comment: mixe d/venous blood Performed By: #### A BG ####[facility] Kpdaljuonx2465[address] [place], [place] [address]Dr. Antonella Medrano Oxygen saturation in Blood 74.3 % Critically low 95.0-100.0 [facility] Comment on above: Result Comment: mixe d/venous blood Performed By: #### A BG ####[facility] Gcbgfukwgd189[address] [place], [place] [address]Dr. Antonella Medrano PCO2 40.2 mmHg Normal 35.0-45.0 [facility] Comment on above: Performed By: #### A BG ####[facility] Buzqunmluq6798[address] [place], [place] [address]DrGerman Medrano PEEP [facility] Comment on above: Performed By: #### A BG ####[facility] Cwezdpaidn1368[address] [place], [place] [address]DrGerman Medrano pH (Bld) 7.409 [pH] Normal 7.350-7.450 [facility] Comment on above: Performed By: #### A BG ####[facility] Eagunjerlb4860[address] [place], [place] [address]DrGerman Medrano PIP [facility] Comment on above: Performed By: #### A BG ####[facility] Tdrvozgkwb4249 [place] [address]Dr. Antonella Medrano PS [facility] Comment on above: Performed By: #### A BG ####[facility] Iqsnmnsulq7633 [place] [address]Dr. Antonella Medrano PUNCTURE SITE RR [facility] Comment on above: Performed By: #### A BG ####[facility] Pozyofevsa4705 [place] [address]Dr. Antonella Medrano RATE [facility] Comment on above: Performed By: #### A BG ####[facility] Crjizwewqg0[address] [place], [place] [address]Dr. Antonella Medrano VENT MODE [facility] Comment on above: Performed By: #### A BG ####[facility] Pxjzsnfhxz26[address] [place], [place] [address]Dr. Antonella Medrano [place] [facility] Comment on above: Performed By: #### A BG ####[facility] Rfztoyhuld50[address] [place], [place] [address]Dr. Antonella Medrano CARDIAC VICK 3-6on 2 CK [Catalytic activity/Vol] 45 U/L Normal 26-192 [facility] Comment on above: Performed By: #### C MREP ####[facility] Tmmbdbqoes3[address] [place], [place] [address]Dr. Antonella Medrano CK [Catalytic activity/Vol] 38 U/L Normal 26-192 [facility] Comment on above: Performed By: #### C MREP ####[facility] Tleteunlqs5046[address] [place], [place] [address]Dr. Antonella Medrano CK.MB [Mass/Vol] 1.53 ng/mL Normal <=3.60 [facility] Comment on above: Performed By: #### C MREP ####[facility] Hlwiectonx[address] [place], [place] [address]Dr. Antonella Medrano CK.MB [Mass/Vol] 1.28 ng/mL Normal <=3.60 [facility] Comment on above: Performed By: #### C MREP ####[facility] Sbrngujsya2652 [place], [place] [address]Ur. Antonella Medrano HSTROP 56.7 pg/mL Critically high 4.0-51.3 [facility] Comment on above: Result Comment: CUT- OFF POINTS HAVE BEEN ESTABLISHED BASED ON THE FOURTH UNIVERSAL DEFINITIONS OF MYOCARDIALINFARCTION. THE UPPER REFERENCE LIMIT (URL) OF TROPONIN, DEFINED THE 99TH PERCENTILE OFcTnI DISTRIBUTION IN A REFERENCE POPULATION, HAS BEEN CONFIRMED THE DECISION THRESHOLDFOR [place] DIAGNOSIS. Performed By: #### C MREP ####[facility] Gjkutwtqcz8506 [place] [id number]. Antonella Medrano HSTROP 58.4 pg/mL Critically high 4.0-51.3 [facility] Comment on above: Result Comment: CUT- OFF POINTS HAVE BEEN ESTABLISHED BASED ON THE [facility] UNIVERSAL DEFINITIONS OF MYOCARDIALINFARCTION. THE UPPER REFERENCE LIMIT (URL) OF TROPONIN, DEFINED THE 99TH PERCENTILE OFcTnI DISTRIBUTION IN A REFERENCE POPULATION, HAS BEEN CONFIRMED THE DECISION THRESHOLDFOR [place] DIAGNOSIS. Performed By: #### C MREP ####[facility] Zvwmcibheb8677 [place] [id number]. Antonella Medrano CARDIAC VICK ADMITon 022 CK [Catalytic activity/Vol] 47 U/L Normal 26-192 [facility] Comment on above: Performed By: #### C MADM, BMP ####[facility] Mjuumnknoy2086 [place] [id number]. Antonella Medrano CK.MB [Mass/Vol] 1.38 ng/mL Normal <=3.60 [facility] Comment on above: Performed By: #### C MADM, BMP ####[facility] Apitnxrdmq5396 [place] [id number]. Antonella Medrano HSTROP 57.9 pg/mL Critically high 4.0-51.3 [facility] Comment on above: Result Comment: CUT- OFF POINTS HAVE BEEN ESTABLISHED BASED ON THE FOURTH UNIVERSAL DEFINITIONS OF MYOCARDIALINFARCTION. THE UPPER REFERENCE LIMIT (URL) OF TROPONIN, DEFINED THE 99TH PERCENTILE OFcTnI DISTRIBUTION IN A REFERENCE POPULATION, HAS BEEN CONFIRMED THE DECISION THRESHOLDFOR [place] DIAGNOSIS. Performed By: #### C MADM, BMP ####[facility] Mfmaupzoqz4439 [place] [address]Dr. Antonella Medrano CHRISTOPHER 100 ng/mL Critically high 9-82 [facility] Comment on above: Performed By: #### C FERNANDEZ, BMP ####[facility] Oxgiwzbiku56[address] [place], [place] [address]Dr. Antonella Medrano CBC AUTO DIFFon 05-13-2022 BASO # 0.1 103/ul Normal 0.0-0.1 [facility] Comment on above: Performed By: #### C BC ####[facility] Jjdhpohtlx8[address] [place], [place] [address]Dr. Antonella Medrano BASO # 0.0 103/ul Normal 0.0-0.1 [facility] Comment on above: Performed By: #### C BC ####[facility] Uiamiiwfmv97[address] [place], [place] [address]Dr. Antonella Medrano Basophils/100 WBC (Bld) 0.5 % Normal 0.2-2.0 [facility] Comment on above: Performed By: #### C BC ####[facility] Wjscchwyrs756[address] [place], [place] [address]Dr. Antonella Medrano Basophils/100 WBC (Bld) 0.3 % Normal 0.2-2.0 [facility] Comment on above: Performed By: #### C BC ####[facility] Xxxsdakthu264[address] [place], [place] [address]Dr. Antonella Medrano EO # 0.1 103/ul Normal 0.0-0.7 [facility] Comment on above: Performed By: #### C BC ####[facility] Xzkciphtji6[address] [place], [place] [address]Dr. Antonella Medrano EO # 0.1 103/ul Normal 0.0-0.7 [facility] Comment on above: Performed By: #### C BC ####[facility] Lrehurazgd97[address] [place], [place] [address]Dr. Antonella Medrano Eosinophils/100 WBC (Bld) 1.3 % Normal 0.9-7.0 [facility] Comment on above: Performed By: #### C BC ####[facility] Yfydcrecsq038[address] [place] [address]Dr. Antonella Medrano Eosinophils/100 WBC (Bld) 1.6 % Normal 0.9-7.0 [facility] Comment on above: Performed By: #### C BC ####[facility] Gfqpalnxpz[address] [place], [place] [address]Dr. Antonella Medrano Erythrocyte distribution width (RBC) [Ratio] 13.7 % Normal 11.0-15.0 [facility] Comment on above: Performed By: #### C BC ####[facility] Uzgyddjrzr[address] [place], [place] [address]Dr. Antonella Medrano Erythrocyte distribution width (RBC) [Ratio] 13.7 % Normal 11.0-15.0 [facility] Comment on above: Performed By: #### C BC ####[facility] Xlqhjalygd[address] [place], [place] [address]Dr. Antonella Medrano Hematocrit (Bld) [Volume fraction] 45.2 % Normal 36.0-48.0 [facility] Comment on above: Performed By: #### C BC ####[facility] Vguxrbawyh7[address] [place], [place] [address]Dr. Antonella Medrano Hematocrit (Bld) [Volume fraction] 43.1 % Normal 36.0-48.0 [facility] Comment on above: Performed By: #### C BC ####[facility] Htfnuvogaw49[address] [place], [place] [address]Dr. Antonella Medrano Hemoglobin (Bld) [Mass/Vol] 14.9 g/dL Normal 12.0-16.0 [facility] Comment on above: Performed By: #### C BC ####[facility] Vunujgpqfa4210[address] [place], [place] [address]Dr. Antonella Medrano Hemoglobin (Bld) [Mass/Vol] 14.1 g/dL Normal 12.0-16.0 [facility] Comment on above: Performed By: #### C BC ####[facility] Twlsogyscw664[address] [place], [place] [address]Dr. Antonella Medrano IG # 0.14 10e3/ul Critically high 0.00-0.03 [facility] Comment on above: Performed By: #### C BC ####[facility] [address]urj[address] [place] [id number]. Antonella Medrano IG # 0.10 10e3/ul Critically high 0.00-0.03 [facility] Comment on above: Performed By: #### C BC ####[facility] Ajaennevtz16[address] [place] [id number]. Antonella Medrano IG % 1.4 % Critically high 0.0-0.5 [facility] Comment on above: Performed By: #### C BC ####[facility] Axhxuuloyg[address] [place], [place] [address]Dr. Antonella Medrano IG % 1.2 % Critically high 0.0-0.5 [facility] Comment on above: Performed By: #### C BC ####[facility] Ogjmqnghjz354[address] [place], [place] [address]Dr. Antonella Medrano LYMPH # 1.7 103/ul Normal 1.2-3.8 [facility] Comment on above: Performed By: #### C BC ####[facility] Utoaqyxsqv7[address] [place], [place] [address]Dr. Antonella Medrano LYMPH # 2.3 103/ul Normal 1.2-3.8 [facility] Comment on above: Performed By: #### C BC ####[facility] Zpgpnhnacg[address] [place], [place] [address]Dr. Antonella Medrano Lymphocytes/100 WBC (Bld) 16.1 % Critically low 20.5-60.0 [facility] Comment on above: Performed By: #### C BC ####[facility] Rjcjaxweqa[address] [place], [place] [address]Dr. Antonella Medrano Lymphocytes/100 WBC (Bld) 26.2 % Normal 20.5-60.0 [facility] Comment on above: Performed By: #### C BC ####[facility] Prdobbiynt12[address] [place], [place] [address]Dr. Antonella Medrano MANUAL DIFF REQ NO Normal [facility] Comment on above: Performed By: #### C BC ####[facility] Lsotgqtugo07[address] [place] [id number]. Antonella Medrano MANUAL DIFF REQ NO Normal [facility] Comment on above: Performed By: #### C BC ####[facility] Rzponwmwki5[address] [place] [id number]. Antonella Mitchell MCH (RBC) [Entitic mass] 29.0 pg Normal 26.7-34.0 [facility] Comment on above: Performed By: #### C BC ####[facility] Fztbxniqmx[address] [place] [address]Dr. Antonella Mitchell MCH (RBC) [Entitic mass] 28.8 pg Normal 26.7-34.0 [facility] Comment on above: Performed By: #### C BC ####[facility] Hcnhikomny54[address] [place] [address]Dr. Antonella Medrano MCHC (RBC) [Mass/Vol] 33.0 g/dL Normal 29.9-35.2 [facility] Comment on above: Performed By: #### C BC ####[facility] Ugdfjsitoj1698 [place] [address]Dr. Antonella Mitchell MCHC (RBC) [Mass/Vol] 32.7 g/dL Normal 29.9-35.2 [facility] Comment on above: Performed By: #### C BC ####[facility] Jnvmfozbyg6268 [place] [address]Dr. Antonella Mitchell MCV (RBC) [Entitic vol] 87.9 fL Normal 81.0-99.0 [facility] Comment on above: Performed By: #### C BC ####[facility] Zxfcboixuw1337 [place] [address]Dr. Antonella Medrano MCV (RBC) [Entitic vol] 88.0 fL Normal 81.0-99.0 [facility] Comment on above: Performed By: #### C BC ####[facility] Gtxyaznxyq7062 [place] [address]Dr. Antonella Medrano MONO # 1.0 103/ul Critically high 0.3-0.8 [facility] Comment on above: Performed By: #### C BC ####[facility] Nhjxgicscy48[address] [place] [id number]. Antonella Medrano MONO # 0.8 103/ul Normal 0.3-0.8 [facility] Comment on above: Performed By: #### C BC ####[facility] Okyawyyhdp1109 [place], [place] [address]Dl. Antonella Medrano Monocytes/100 WBC (Bld) 9.2 % Normal 1.7-12.0 [facility] Comment on above: Performed By: #### C BC ####[facility] Uyhrmteior7465 [place] [address]Dr. [place]ella Medrano Monocytes/100 WBC (Bld) 9.3 % Normal 1.7-12.0 [facility] Comment on above: Performed By: #### C BC ####[facility] Fnzvoyppbs8196 [place] [address]Dr. [place]ella Medrano NEUT # 7.4 103/ul Critically high 1.4-6.5 [facility] Comment on above: Performed By: #### C BC ####[facility] Mvphassbfe9672 [place] [address]Dr. [place]ella Medrano NEUT # 5.3 103/ul Normal 1.4-6.5 [facility] Comment on above: Performed By: #### C BC ####[facility] Qypufpragy7005 [place] [id number]. [place]ella Medrano Neutrophils/100 WBC (Bld) 71.5 % Normal 43.0-75.0 [facility] Comment on above: Performed By: #### C BC ####[facility] Fkmxrmwtch3486 [place] [address]Dr. [place]ella Medrano Neutrophils/100 WBC (Bld) 61.4 % Normal 43.0-75.0 [facility] Comment on above: Performed By: #### C BC ####[facility] Fvqddbbaie0060 [place] [id number]. [place]ella Medrano Platelet mean volume (Bld) [Entitic vol] 10.4 fL Normal 9.5-13.5 [facility] Comment on above: Performed By: #### C BC ####[facility] Agogwyeapy2097 [place] [address]Dr. [place]ella Medrano Platelet mean volume (Bld) [Entitic vol] 10.6 fL Normal 9.5-13.5 [facility] Comment on above: Performed By: #### C BC ####[facility] Rhvirwnybb8159 [place] [address]Dr. Antonella Medrano PLT 289 103/ul Normal 150-450 [facility] Comment on above: Performed By: #### C BC ####[facility] Lmttigpbpm70[address] [place], [place] [address]Dr. Antonella Medrano PLT 291 103/ul Normal 150-450 [facility] Comment on above: Performed By: #### C BC ####[facility] Ermezbbvrb55[address] [place], [place] [address]Dr. Antonella Medrano RBC 5.14 106/ul Normal 4.20-5.40 [facility] Comment on above: Performed By: #### C BC ####[facility] Fbsxivmopp[address] [place], [place] [address]Dr. [place]ella Medrano RBC 4.90 106/ul Normal 4.20-5.40 [facility] Comment on above: Performed By: #### C BC ####[facility] Eqdzedqqjn0449 [place] [address]Dr. [place]ella Medrano WBC 10.3 103/ul Normal 4.0-11.0 [facility] Comment on above: Performed By: #### C BC ####[facility] Nbpkzfezor98[address] [place], [place] [address]Dr. [place]ella Medrano WBC 8.7 103/ul Normal 4.0-11.0 [facility] Comment on above: Performed By: #### C BC ####[facility] Udgpfsivtc1432[address] [place], [place] [address]Dr. Antonella Medrano CT HEAD WO CONon 05-13-2022 CT HEAD WO CON Normal [facility] CULTURE URINEon 05-13-2022 CULTURE URINE Culture Observations : HEAVY GROWTH OF MIXED GENITAL LUCY. NO POTENTIAL PATHOGENS SEEN. Normal [facility] Comment on above: Performed By: #### U RCX ####[facility] Qvbyeevfww83[address] [place], [place] [address]Dr. Antonella Medrano Covid-19 PCR (CVDTB)on 04-24 SARS-CoV-2 (COVID-19) RNA TAISHA+probe Ql (Unsp spec) Not detected Normal NOT DETECTED [facility] Comment on above: Result Comment: When [...] for this test is supported by the [place] of [employer] and Human Service's declaration that [...] be used). Performed By: #### C VDTBH ####[facility] Rtibhzsdie67[address] [place], [place] [address]Dr. Antonella Medrano ER URINE PROFILEon 2 Bilirubin Ql (U) Negative Normal NEGATIVE [facility] Comment on above: Performed By: #### U MICRO, ERUR ####[facility] Qaqvpulcxu9060[address] [place], [place] [address]Dr. [place]ella Medrano Clarity (U) CLEAR Normal CLEAR [facility] Comment on above: Performed By: #### U MICRO, ERUR ####[facility] Djnhxoamhr2116[address] [place], [place] [address]Dr. [place]ella Medrano Color (U) YELLOW Normal YELLOW [facility] Comment on above: Performed By: #### U MICRO, ERUR ####[facility] Qiubtnriiv86[address] [place], [place] [address]Dr. Antonella LABOY A micrscopic examina tion will be performed if indicated. Normal [facility] Comment on above: Performed By: #### U MICRO, ERUR ####[facility] Hnezeywtmr4947 [place] [address]Dr. [place]ella Medrano Glucose Ql (U) >1000 Abnormal NEGATIVE [facility] Comment on above: Performed By: #### U MICRO, ERUR ####[facility] Tcqvzqsnid[address] [place], [place] [address]Dr. Antonella Medrano Hemoglobin Ql (U) SMALL Abnormal NEGATIVE [facility] Comment on above: Performed By: #### U MICRO, ERUR ####[facility] Mfpuqordyb8[address] [place], [place] [address]Dr. [place]ella Medrano Ketones Ql (U) Negative Normal NEGATIVE [facility] Comment on above: Performed By: #### U MICRO, ERUR ####[facility] Lellbzbhwz5259[address] [place], [place] [address]Dr. [place]ella Medrano LEUKOCYTES SMALL Abnormal NEGATIVE [facility] Comment on above: Performed By: #### U MICRO, ERUR ####[facility] Vhathtrkyp7[address] [place], [place] [address]Dr. [place]ella Medrano Nitrite Ql (U) Negative Normal NEGATIVE [facility] Comment on above: Performed By: #### U MICRO, ERUR ####[facility] Wqdrrlxibd50[address] [place], [place] [address]Dr. [place] Medrano pH (U) 5.5 [pH] Normal 5-9 [facility] Comment on above: Performed By: #### U MICRO, ERUR ####[facility] Rmllehmjcp98[address] [place], [place] [address]Dr. [place]ella Medrano Protein (U) [Mass/Vol] 100 mg/dL Abnormal NEGAT LAZ/ TRACE [facility] Comment on above: Performed By: #### U MICRO, ERUR ####[facility] Ipacilauya06[address] [place], [place] [address]Dr. [place]ella Medrano SPEC GRAVITY >=1.030 Abnormal 1.005-<=1.0 25 [facility] Comment on above: Performed By: #### U MICRO, ERUR ####[facility] Wdbviuezuo2088 [place] [address]Dr. [place]ella Medrano UR MICRO IND INDICATED Normal [facility] Comment on above: Performed By: #### U MICRO, ERUR ####[facility] Kktzxiuwdh4707 [place] [address]Dr. Mariafilemon Mitchell Urobilinogen Qn (U) 0.2 {Oleg'U}/dL Normal 0.2 - 1. 0 [facility] Comment on above: Performed By: #### U MICRO, ERUR ####[facility] Ivgnbgyjcs9[address] [place], [place] [address]Dr. [place]ella Medrano ETHANOL (BLD ALC)on 05-13-20 ALC NOTE NOTE: 80 mg/dl is th e legal limit for a blood alcohol level Normal [facility] Comment on above: Performed By: #### E TH ####[facility] Iswgzvhcwp0939[address] [place], [place] [address]Dr. Mariafilemon Medrano Ethanol [Mass/Vol] mg/dL Normal [facility] Comment on above: Performed By: #### E TH ####[facility] Iartjmougw[address] [place], [place] [address]Dr. [place] Mitchell LACTATE/LACTIC ACIDon 2021 Lactate [Moles/Vol] 1.3 mmol/L Normal 0.4-1.9 [facility] Comment on above: Performed By: #### L ACT ####[facility] Tvhzppcpqn6424[address] [place], [place] [address]Dr. [place] Mitchell POINT OF CARE GLUCOSEon 04-24 Glucose [Mass/Vol] 146 mg/dL Critically high 74-106 [facility] Comment on above: Performed By: #### P OCGLUC ####[facility] Clyqzyufeo9[address] [place], [place] [address]Dr. Mariafilemon Mitchell Glucose [Mass/Vol] 253 mg/dL Critically high 74-106 [facility] Comment on above: Performed By: #### P OCGLUC ####[facility] Prqnlocdgi57[address] [place], [place] [address]Dr. [place] Medrano Glucose [Mass/Vol] 172 mg/dL Critically high 74-106 [facility] Comment on above: Performed By: #### P OCGLUC ####[facility] Erdtydmngl35[address] [place], [place] [address]Dr. [place] Medrano Performed By: #### B MP ####[facility] Ijfdoujari58[address] [place], [place] [address]Dr. [place]ella Medrano Glucose [Mass/Vol] 164 mg/dL Critically high 74-106 [facility] Comment on above: Performed By: #### P OCGLUC ####[facility] Jmxopiqfzu[address] [place], [place] [address]Dr. [place]ella Medrano PROF CHEM 8 (BAS METB)on Anion gap [Moles/Vol] 12.0 mmol/L Normal [facility] Comment on above: Performed By: #### C MADM, BMP ####[facility] Ixpezxauku3189[address] [place], [place] [address]Dr. [place]ella Medrano Anion gap [Moles/Vol] 11.4 mmol/L Normal [facility] Comment on above: Performed By: #### B MP ####[facility] Qttbbmgapr4235[address] [place], [place] [address]Dr. [place]ella Medrano Calcium [Mass/Vol] 8.8 mg/dL Normal 8.5-10.1 [facility] Comment on above: Performed By: #### C MADM, BMP ####[facility] Cuvthoomkk3467[address] [place], [place] [address]Dr. [place]ella Medrano Calcium [Mass/Vol] 8.4 mg/dL Critically low 8.5-10.1 [facility] Comment on above: Performed By: #### B MP ####[facility] Sroswpgcvy0124[address] [place], [place] [address]Dr. [place]ella Medrano Chloride [Moles/Vol] 101 mmol/L Normal 98-107 [facility] Comment on above: Performed By: #### C MADM, BMP ####[facility] Dvmffdxjbk[address] [place], [place] [address]Dr. [place]ella Medrano Chloride [Moles/Vol] 101 mmol/L Normal 98-107 [facility] Comment on above: Performed By: #### B MP ####[facility] Kmiubmyqxm22[address] [place], [place] [address]Dr. [place]ella Medrano CO2 [Moles/Vol] 28.2 mmol/L Normal 21.0-32.0 [facility] Comment on above: Performed By: #### C FERNANDEZ, BMP ####[facility] Mnocosmwae2018[address] [place], [place] [address]Dr. [place]ella Medrano CO2 [Moles/Vol] 26.5 mmol/L Normal 21.0-32.0 [facility] Comment on above: Performed By: #### B MP ####[facility] Ojikswhvfz2567[address] [place], [place] [address]Dr. [place]ella Medrano Creatinine [Mass/Vol] 1.23 mg/dL Critically high 0.55-1.02 [facility] Comment on above: Performed By: #### C FERNANDEZ, BMP ####[facility] Xilqjqwzqn50[address] [place], [place] [address]Dr. [place]ella Medrano Creatinine [Mass/Vol] 1.06 mg/dL Critically high 0.55-1.02 [facility] Comment on above: Performed By: #### B MP ####[facility] Aofqipijru[address] [place], [place] [address]Dr. [place] Medrano EGFR-AF IVORIAN 53 mL/min/1.73m2 Critically low >=60 [facility] Comment on above: Performed By: #### C FERNANDEZ, BMP ####[facility] Nzmlfmfago5[address] [place], [place] [address]Dr. [place]ella Medrano EGFR-AF IVORIAN >60 Normal >=60 [facility] Comment on above: Performed By: #### B MP ####[facility] Qqovkeqlqu4086[address] [place], [place] [address]Dr. [place]ella Medrano EGFR-NON AF IVORIAN 44 mL/min/1.73m2 Critically low >=60 [facility] Comment on above: Performed By: #### C FERNANDEZ, BMP ####[facility] Ytejkqsiow[address] [place], [place] [address]Dr. Yilan Medrano EGFR-NON AF IVORIAN 52 mL/min/1.73m2 Critically low >=60 [facility] Comment on above: Performed By: #### B MP ####[facility] Yigixojtjb1494 [place] [address]Dr. [place]ella Medrano Glucose [Mass/Vol] 173 mg/dL Critically high 74-106 [facility] Comment on above: Performed By: #### C FERNANDEZ, BMP ####[facility] Covghbqxva0490 [place] [address]Dr. [place]ella Medrano Potassium [Moles/Vol] 4.2 mmol/L Normal 3.5-5.1 [facility] Comment on above: Performed By: #### C FERNANDEZ, BMP ####[facility] Oujjnehkdy5[address] [place], [place] [address]Dr. Marialan Medrano Potassium [Moles/Vol] 3.9 mmol/L Normal 3.5-5.1 [facility] Comment on above: Performed By: #### B MP ####[facility] Nqdiqmgsxx60[address] [place], [place] [address]Dr. Antonella Medrano Sodium [Moles/Vol] 137 mmol/L Normal 136-145 [facility] Comment on above: Performed By: #### C FERNANDEZ, BMP ####[facility] Tnbgylfsyq65[address] [place], [place] [address]Dr. Antonella Medrano Sodium [Moles/Vol] 135 mmol/L Critically low 136-145 [facility] Comment on above: Performed By: #### B MP ####[facility] Yhxlzsmaxr[address] [place], [place] [address]Dr. Antoenlla Medrano Urea nitrogen [Mass/Vol] 29.0 mg/dL Critically high 7.0-18.0 [facility] Comment on above: Performed By: #### C FERNANDEZ, BMP ####[facility] Fvsjfsfjxt6564[address] [place], [place] [address]Dr. [place]ella Medrano Urea nitrogen [Mass/Vol] 28.0 mg/dL Critically high 7.0-18.0 [facility] Comment on above: Performed By: #### B MP ####[facility] Lebroqsofm46[address] [place] [address]Dr. [place]ella Medrano Urea nitrogen/Creatinine [Mass ratio] 23.6 mg/mg Normal [facility] Comment on above: Performed By: #### C MADM, BMP ####[facility] Qwjrbydfcw7095 [place] [address]Dr. Mariafilemon Medrano Urea nitrogen/Creatinine [Mass ratio] 26.4 mg/mg Normal [facility] Comment on above: Performed By: #### B MP ####[facility] Icvtbtijca30[address] [place] [address]Dr. [place]ella Medrano URINE MICROSCOPIC ONLYon BACTERIA LARGE Abnormal NONE SEEN [facility] Comment on above: Performed By: #### U MICRO, ERUR ####[facility] Hobwzojmyy32[address] [place] [address]Dr. [place]ella Medrano Bacteria identified Cx Nom (U) INDICATED Normal [facility] Comment on above: Performed By: #### U MICRO, ERUR ####[facility] Sblxckldsc0830 [place] [address]Dr. Antonella Medrano CAST NONE SEEN Normal NONE SEEN [facility] Comment on above: Performed By: #### U MICRO, ERUR ####[facility] Inimuwntvh9168 [place] [address]Dr. [place]ella Medrano Crystals LM Nom (Urine sed) NONE SEEN Normal NONE SEEN [facility] Comment on above: Performed By: #### U MICRO, ERUR ####[facility] Bpuzbmniol2560 [place] [address]Dr. [place]ella Medrano Epithelial cells LM Ql (Urine sed) RARE Normal NONE SEEN /RARE [facility] Comment on above: Performed By: #### U MICRO, ERUR ####[facility] Omcjwccxqs[address] [place], [place] [address]Dr. Marialan Medrano MUCOUS NONE SEEN Normal NONE SEEN [facility] Comment on above: Performed By: #### U MICRO, ERUR ####[facility] Xtykzqvsiw7567 [place] [address]Dr. [place]ella Medrano RBC 0-2 Normal 0-2 [facility] Comment on above: Performed By: #### U MICRO, ERUR ####[facility] Jpsjicfslg8830 [place], [place] [address]Dl. Antonella Medrano WBC 10-20 Abnormal NONE SEEN [facility] Comment on above: Performed By: #### U MICRO, ERUR ####[facility] Qokevalskj9550 [place], [place] [address]Tg. Antonella Medrano YEAST PRESENT Abnormal NONE SEEN [facility] Comment on above: Performed By: #### U MICRO, ERUR ####[facility] Dhzohvdbfp0712 [place], [place] [address]Tg. Antonella Medrano POC GLUCOSE LABon 03-25-2022 Glucose [Mass/Vol] 189 mg/dL High 70-100 [facility] Comment on above: Performed By: #### 1 0070, [id number] #### [facility] [address] [place] [address], [place] Glucose [Mass/Vol] 180 mg/dL High 70-100 [facility] Comment on above: Performed By: #### 1 0070, [id number] #### [facility] [address] [place] [address], [place] POC GLUCOSE LABon 03-24-2022 Glucose [Mass/Vol] 85 mg/dL Normal 70-100 [facility] Comment on above: Performed By: #### 3 5200 #### [facility] [address] [place] [address], [place] Glucose [Mass/Vol] 148 mg/dL High 70-100 [facility] Comment on above: Performed By: #### 8 5499 #### [facility] [address] [place] [address], [place] Glucose [Mass/Vol] 175 mg/dL High 70-100 [facility] Comment on above: Performed By: #### 8 5499 #### [facility] [address] [place] [address], [place] Glucose [Mass/Vol] 198 mg/dL High 70-100 [facility] Comment on above: Performed By: #### 3 5200 #### [facility] [address] [place] [address], [place] POC GLUCOSE LABon 03-23-2022 Glucose [Mass/Vol] 188 mg/dL High 70-100 [facility] Comment on above: Performed By: #### 8 5499 #### [facility] [address] [place] [address], [place] Glucose [Mass/Vol] 141 mg/dL High 70-100 [facility] Comment on above: Performed By: #### 8 5499 #### [facility] [address] [place] [address], [place] Glucose [Mass/Vol] 190 mg/dL High 70-100 [facility] Comment on above: Performed By: #### 8 5499 #### [facility] [address] [place] [address], [place] Glucose [Mass/Vol] 173 mg/dL High 70-100 [facility] Comment on above: Performed By: #### 8 5499 #### [facility] [address] [place] [address], [place] POC GLUCOSE LABon 03-22-2022 Glucose [Mass/Vol] 212 mg/dL High 70-100 [facility] Comment on above: Performed By: #### 1 0070, 05698 #### [facility] [address] [place] [address], [place] Glucose [Mass/Vol] 182 mg/dL High 70-100 [facility] Comment on above: Performed By: #### 8 5499 #### [facility] [address] [place] [address], [place] Glucose [Mass/Vol] 241 mg/dL High 70-100 [facility] Comment on above: Performed By: #### 8 5499 #### [address] [place] [address], [facility] Glucose [Mass/Vol] 225 mg/dL High 70-100 [facility] Comment on above: Performed By: #### 1 0070, 65751 #### [address] [place] [address], [facility] MRI HIP WO CONTRAST RIGHTon 03-21-2022 MRI HIP WO CONTRAST RIGHT [facility] Department of Radiology [address] [place] [address] [phone] Patient Name: KIARA BLANC : 1955 Sex: F Age: Race: White Pt. Location: [id number] Patient Status: I Ordered Date: 2022 2:20:00 [...] fracture. Electronically signed: Kj Pedersen. Transcribed by: [email or web address], User Resident: Electronically Signed by: KJ PEDERSEN @ 03/21/2022 12:05 PM Normal [facility] Comment on above: Order Comment: No: D o not add to previous draw POC GLUCOSE LABon 03-21-2022 Glucose [Mass/Vol] 223 mg/dL High 70-[address] [facility] Comment on above: Performed By: #### 3 5200 #### [facility] [address] [place] [address], [place] Glucose [Mass/Vol] 250 mg/dL High 70-100 [facility] Comment on above: Performed By: #### 8 5499 #### [facility] [address] [place] [address], [place] Glucose [Mass/Vol] 256 mg/dL High 70-100 [facility] Comment on above: Performed By: #### 8 5499 #### [facility] [address] [place] [address], [place] Glucose [Mass/Vol] 270 mg/dL High 70-100 [facility] Comment on above: Performed By: #### 1 0070, 68730 #### [facility] [address] [place] [address], [place] CT LOWER EXTREMITY WO CONTRA ST RIGHTon 2022 CT LOWER EXTREMITY WO CONTRAST RIGHT [facility] Department of Radiology [address] [place] [address] Patient Name: KIARA BLANC : 1955 Sex: F Age: Race: White Pt. Location: [id number] Patient Status: I Ordered Date: 2022 12:00:00 [...] fracture. Electronically signed: Rodo Melissa. Transcribed by: [email or web address], User Resident: Electronically Signed by: RODO MELISSA @ 2022 01:26 PM Normal [facility] Comment on above: Order Comment: No: D o not add to previous draw HIPS BILATERAL 2 VWS WITH PE LVISon 2022 HIPS BILATERAL 2 VWS WITH PELVIS [facility] Department of Radiology [address] [place] [phone] Patient Name: KIARA BLANC : 1955 Sex: F Age: Race: White Pt. Location: [id number] Patient Status: I Ordered Date: 2022 9:05:00 [...] indicated. Electronically signed: Rodo Melissa. Transcribed by: [email or web address], User Resident: Electronically Signed by: RODO MELISSA @ 2022 02:13 PM Normal [facility] Comment on above: Order Comment: R/O F X, R pelvic crest, greater trochanter LUMBAR SPINE 2 OR 3 VWSon LUMBAR SPINE 2 OR 3 VWS [facility] Department of Radiology [address] [place] [phone] Patient Name: KIARA BLANC : 1955 Sex: F Age: Race: White Pt. Location: [id number] Patient Status: I Ordered Date: 2022 9:10:00 [...] described. Electronically signed: Rodo Melissa. Transcribed by: [email or web address], User Resident: Electronically Signed by: RODO MELISSA @ 2022 10:11 AM Normal [facility] Comment on above: Order Comment: No: D o not add to previous draw POC GLUCOSE LABon 2022 Glucose [Mass/Vol] 153 mg/dL High 70-100 [facility] Comment on above: Performed By: #### 8 5499 #### [facility] [address] [place] [address], [facility] Glucose [Mass/Vol] 212 mg/dL High 70-100 [facility] Comment on above: Performed By: #### 3 5200 #### [facility] [address] [place] [address], [place] Glucose [Mass/Vol] 245 mg/dL High 70-100 [facility] Comment on above: Performed By: #### 3 5200 #### [facility] [address] [place] [address], [place] Glucose [Mass/Vol] 263 mg/dL High 70-100 [facility] Comment on above: Performed By: #### 3 5200 #### [facility] [address] [address], [facility] TSH3on 2022 TSH 3RD GENERATION 1.23 uIU/mL Normal 0.34-5.60 [facility] Comment on above: Order Comment: No: D o not add to previous draw Performed By: #### 1 69, 50094 #### [facility] [address] [facility] [place] [address], [facility] VITAMIN B12on 2022 Cobalamin (Vitamin B12) [Mass/Vol] 436 pg/mL Normal 180-914 [facility] Comment on above: Order Comment: No: D o not add to previous draw Result Comment: REFE RENCE RANGES: 180-914 pg/mL Normal 145-179 pg/mL Indeterminate <145 pg/mL Deficient Performed By: #### 1 69, 80549 #### [facility] [address] [address], [facility] VITAMIN D 25-HYDROXYon 03-20 VITAMIN D 25-OH 20.1 ng/mL Low 30.0-80.0 [facility] Comment on above: Result Comment: >80. 0 Toxicity possible Performed By: #### 1 69, 03409 #### [facility] [address] [place] [address], [place] POC GLUCOSE LABon 03-19-2022 Glucose [Mass/Vol] 232 mg/dL High 70-100 [facility] Comment on above: Performed By: #### 3 5200 #### [facility] [address] [place] [address], [place] Glucose [Mass/Vol] 143 mg/dL High 70-100 [facility] Comment on above: Performed By: #### 8 5499 #### [facility] [address] [place] [address], [place] Glucose [Mass/Vol] 111 mg/dL High 70-100 [facility] Comment on above: Performed By: #### 1 69, 15796 #### [facility] [address] [place] [address], [place] Glucose [Mass/Vol] 140 mg/dL High 70-100 [facility] Comment on above: Performed By: #### 8 5499 #### [facility] [address] [place] [address], [facility] *URINE CULTUREon 03-18-2022 *URINE CULTURE Clinical Report: (D) Specimen/Source: URINE/CLEAN VOID URINE Collected: 03/18/2022 12:00 Status: Final Last Updated: 2022 10:33 ISO (Final) >100,000 Cfu/Ml Uro-Genital Lucy ISO (Final) Presumptive Grover glabrata >100,000 Cfu/Ml Normal [facility] Comment on above: Performed By: #### 8 5499 #### [facility] [address] [place] [address], [place] MAGNESIUM BLOODon 03-18-2022 Magnesium [Mass/Vol] 1.9 mg/dL Normal 1.9-2.7 [facility] Comment on above: Order Comment: No: D o not add to previous draw Performed By: #### 1 69, 47209 #### [facility] [address] [place] [address], [place] POC GLUCOSE LABon 03-18-2022 Glucose [Mass/Vol] 361 mg/dL High 70-100 [facility] Comment on above: Performed By: #### 8 5499 #### [facility] [address] [place] [address], [facility] Glucose [Mass/Vol] 215 mg/dL High 70-100 [facility] Comment on above: Performed By: #### 3 5200 #### [facility] [address] [place] [address], [place] Glucose [Mass/Vol] 262 mg/dL High 70-100 [facility] Comment on above: Performed By: #### 3 5200 #### [facility] [address] [place] [address], [place] Glucose [Mass/Vol] 256 mg/dL High 70-100 [facility] Comment on above: Performed By: #### 8 5499 #### [facility] [address] [place] [address], [facility] URINALYSIS REFLEXon 03-18-20 22 Appearance (U) TURBID Abnormal CLEAR [facility] Comment on above: Order Comment: Yes: Add to Previous draw if able Criteria for reflexing a culture was not met. Please call the lab at 7668 within 24 hours of collection time if culture is needed Performed By: #### 3 0965 #### [facility] [address] [place] [address], [facility] Bilirubin Ql (U) Negative Normal NEGATIVE [facility] Comment on above: Order Comment: Yes: Add to Previous draw if able Criteria for reflexing a culture was not met. Please call the lab at 7668 within 24 hours of collection time if culture is needed Performed By: #### 3 0965 #### [facility] [address] [place] [address], [facility] BUDDING YEAST MANY Abnormal NONE SEEN [facility] Comment on above: Order Comment: Yes: Add to Previous draw if able Criteria for reflexing a culture was not met. Please call the lab at 7668 within 24 hours of collection time if culture is needed Performed By: #### 3 0965 #### [facility] [address] [address], [facility] Color (U) YELLOW Normal YELLOW [facility] Comment on above: Order Comment: Yes: Add to Previous draw if able Criteria for reflexing a culture was not met. Please call the lab at 7668 within 24 hours of collection time if culture is needed Performed By: #### 3 0965 #### [facility] [address] [place] [address], [facility] EPIS MANY Abnormal FEW,OCC,NON E SEEN [facility] Comment on above: Order Comment: Yes: Add to Previous draw if able Criteria for reflexing a culture was not met. Please call the lab at 7668 within 24 hours of collection time if culture is needed Performed By: #### 3 0965 #### [facility] [address] [place] [address], [facility] Glucose Ql (U) >=500 Abnormal NEGATIVE [facility] Comment on above: Order Comment: Yes: Add to Previous draw if able Criteria for reflexing a culture was not met. Please call the lab at 7668 within 24 hours of collection time if culture is needed Performed By: #### 3 0965 #### [facility] [address] [place] [address], [facility] Hemoglobin Ql (U) SMALL Abnormal NEGATIVE [facility] Comment on above: Order Comment: Yes: Add to Previous draw if able Criteria for reflexing a culture was not met. Please call the lab at 7668 within 24 hours of collection time if culture is needed Performed By: #### 3 0965 #### [facility] [address] [place] [address], [facility] KETONE Negative Normal NEGATIVE [facility] Comment on above: Order Comment: Yes: Add to Previous draw if able Criteria for reflexing a culture was not met. Please call the lab at 7668 within 24 hours of collection time if culture is needed Performed By: #### 3 0965 #### [facility] [address] [place] [address], [facility] LEUK TESHA LARGE Abnormal NEGATIVE [facility] Comment on above: Order Comment: Yes: Add to Previous draw if able Criteria for reflexing a culture was not met. Please call the lab at 7668 within 24 hours of collection time if culture is needed Performed By: #### 3 0965 #### [facility] [address] [place] [address], [facility] Nitrite Ql (U) Negative Normal NEGATIVE [facility] Comment on above: Order Comment: Yes: Add to Previous draw if able Criteria for reflexing a culture was not met. Please call the lab at 7668 within 24 hours of collection time if culture is needed Performed By: #### 3 0965 #### [facility] [address] [facility] [place] [address], [facility] pH (U) 6.0 [pH] Normal 5.0-8.0 [facility] Comment on above: Order Comment: Yes: Add to Previous draw if able Criteria for reflexing a culture was not met. Please call the lab at 7668 within 24 hours of collection time if culture is needed Performed By: #### 3 0965 #### [facility] [address] [facility] [place] [address], [facility] Protein Ql (U) 30 mg/dL Abnormal NEGATIVE [facility] Comment on above: Order Comment: Yes: Add to Previous draw if able Criteria for reflexing a culture was not met. Please call the lab at 7668 within 24 hours of collection time if culture is needed Performed By: #### 3 0965 #### [facility] [address] [facility] [place] [address], [facility] RBC 6-10 Abnormal NONE SEEN [facility] Comment on above: Order Comment: Yes: Add to Previous draw if able Criteria for reflexing a culture was not met. Please call the lab at 7668 within 24 hours of collection time if culture is needed Performed By: #### 3 0965 #### [facility] [address] [place] [address], [facility] SPEC GRAV 1.009 Low 1.015-1.020 [facility] Comment on above: Order Comment: Yes: Add to Previous draw if able Criteria for reflexing a culture was not met. Please call the lab at 7668 within 24 hours of collection time if culture is needed Performed By: #### 3 0965 #### [facility] [address] [place] [address], [place] WBC UA >100 Abnormal NONE SEEN [facility] Comment on above: Order Comment: Yes: Add to Previous draw if able Criteria for reflexing a culture was not met. Please call the lab at 7668 within 24 hours of collection time if culture is needed Performed By: #### 3 0965 #### [facility] [address] [place] [address], [place] BASIC METABOLIC PANELon 06- Calcium [Mass/Vol] 8.3 mg/dL Low 8.6-10.3 [facility] Comment on above: Order Comment: No: D o not add to previous draw Performed By: #### 1 69, 02983 #### [facility] [address] [place] [address], [place] Chloride [Moles/Vol] 106 mmol/L Normal 98-107 [facility] Comment on above: Order Comment: No: D o not add to previous draw Performed By: #### 1 69, 38456 #### [facility] [address] [place] [address], [place] CO2 [Moles/Vol] 24 mmol/L Normal 21-31 [facility] Comment on above: Order Comment: No: D o not add to previous draw Performed By: #### 1 69, 77954 #### [facility] [address] [place] [address], [place] Creatinine [Mass/Vol] 0.73 mg/dL Normal 0.60-1.20 [facility] Comment on above: Order Comment: No: D o not add to previous draw Performed By: #### 1 69, 10585 #### [facility] [address] [place] [address], [place] GFR/1.73 sq M.predicted among blacks MDRD (S/P/Bld) [Vol rate/Area] mL/min/{1.73_m2} Normal >60 [facility] Comment on above: Order Comment: No: D o not add to previous draw Performed By: #### 1 69, 16789 #### [facility] [address] [place] [address], [place] GFR/1.73 sq M.predicted among non-blacks MDRD (S/P/Bld) [Vol rate/Area] mL/min/{1.73_m2} Normal >60 [facility] Comment on above: Order Comment: No: D o not add to previous draw Performed By: #### 1 69, 12743 #### [facility] [address] [place] [address], [place] Glucose [Mass/Vol] 218 mg/dL High 70-100 [facility] Comment on above: Order Comment: No: D o not add to previous draw Performed By: #### 1 69, 35706 #### [facility] [address] [place] [address], [place] Potassium [Moles/Vol] 4.2 mmol/L Normal 3.5-5.1 [facility] Comment on above: Order Comment: No: D o not add to previous draw Performed By: #### 1 69, 81951 #### [facility] [address] [place] [address], [place] Sodium [Moles/Vol] 136 mmol/L Normal 136-145 [facility] Comment on above: Order Comment: No: D o not add to previous draw Performed By: #### 1 69, 32590 #### [facility] [address] [place] [address], [place] Urea nitrogen [Mass/Vol] 18 mg/dL Normal 7-25 [facility] Comment on above: Order Comment: No: D o not add to previous draw Performed By: #### 1 0, 73940 #### [facility] [address] [place] [address], [facility] CBC W/DIFFon 03-17-2022 ABS IMM GRANS 0.1 10*3/uL Normal 0.0-0.2 [facility] Comment on above: Order Comment: No: D o not add to previous draw Performed By: #### 8 5499 #### [facility] [address] [facility] [place] [address], [facility] ABS NEUTROPHILS 4.2 10*3/uL Normal 1.6-7.6 [facility] Comment on above: Order Comment: No: D o not add to previous draw Performed By: #### 8 5499 #### [facility] [address] [place] [address], [facility] Basophils (Bld) [#/Vol] 0.0 10*3/uL Normal 0.0-0.2 [facility] Comment on above: Order Comment: No: D o not add to previous draw Performed By: #### 8 5499 #### [facility] [address] [place] [address], [facility] Basophils/100 WBC (Bld) 0.4 % Normal 0.0-1.0 [facility] Comment on above: Order Comment: No: D o not add to previous draw Performed By: #### 8 5499 #### [facility] [address] [facility] [place] [address], [facility] Eosinophils (Bld) [#/Vol] 0.2 10*3/uL Normal 0.0-0.5 [facility] Comment on above: Order Comment: No: D o not add to previous draw Performed By: #### 8 5499 #### [facility] [address] [place] [address], [facility] Eosinophils/100 WBC (Bld) 3.4 % Normal 0.0-6.0 [facility] Comment on above: Order Comment: No: D o not add to previous draw Performed By: #### 8 5499 #### [facility] [address] [place] [address], [facility] Erythrocyte distribution width (RBC) [Ratio] 13.4 % Normal 11.5-15.0 [facility] Comment on above: Order Comment: No: D o not add to previous draw Performed By: #### 8 5499 #### [facility] [address] [place] [address], [facility] Hematocrit (Bld) [Volume fraction] 42.7 % Normal 36.0-45.0 [facility] Comment on above: Order Comment: No: D o not add to previous draw Performed By: #### 8 5499 #### [facility] [address] [place] [address], [facility] Hemoglobin (Bld) [Mass/Vol] 13.8 g/dL Normal 12.0-15.0 [facility] Comment on above: Order Comment: No: D o not add to previous draw Performed By: #### 8 5499 #### [facility] [address] [place] [address], [facility] IMMATURE GRANS 0.8 % Normal 0.0-1.0 [facility] Comment on above: Order Comment: No: D o not add to previous draw Performed By: #### 8 5499 #### [facility] [address] [place] [address], [facility] Lymphocytes (Bld) [#/Vol] 1.8 10*3/uL Normal 1.2-4.0 [facility] Comment on above: Order Comment: No: D o not add to previous draw Performed By: #### 8 5499 #### [facility] [address] [place] [id number], [facility] Lymphocytes/100 WBC (Bld) 25.8 % Normal 20.0-45.0 [facility] Comment on above: Order Comment: No: D o not add to previous draw Performed By: #### 8 5499 #### [facility] [address] [place] [address], [facility] MCH (RBC) [Entitic mass] 28.3 pg Normal 27.0-33.0 [facility] Comment on above: Order Comment: No: D o not add to previous draw Performed By: #### 8 5499 #### [facility] [address] [place] [id number], [facility] MCHC (RBC) [Mass/Vol] 32.3 g/dL Normal 32.0-35.0 [facility] Comment on above: Order Comment: No: D o not add to previous draw Performed By: #### 8 5499 #### [facility] [address] [place] [id number], [facility] MCV (RBC) [Entitic vol] 87.7 fL Normal 82.0-98.0 [facility] Comment on above: Order Comment: No: D o not add to previous draw Performed By: #### 8 5499 #### [facility] [address] [place] [address], [facility] Monocytes (Bld) [#/Vol] 0.7 10*3/uL Normal 0.1-1.0 [facility] Comment on above: Order Comment: No: D o not add to previous draw Performed By: #### 8 5499 #### [facility] [address] [place] [address], [facility] MONOS 9.9 % Normal 5.0-12.0 [facility] Comment on above: Order Comment: No: D o not add to previous draw Performed By: #### 8 5499 #### [facility] [address] [place] [address], [facility] Neutrophils/100 WBC (Bld) 59.7 % Normal 40.0-72.0 [facility] Comment on above: Order Comment: No: D o not add to previous draw Performed By: #### 8 5499 #### [facility] [address] [place] [address], [facility] Nucleated RBC/100 WBC (Bld) [Ratio] 0 % Normal 0-0 [facility] Comment on above: Order Comment: No: D o not add to previous draw Performed By: #### 8 [id number] #### [facility] [address] [place] [id number], [facility] PLAT CNT 248 10*3/uL Normal 150-400 [facility] Comment on above: Order Comment: No: D o not add to previous draw Performed By: #### 8 5499 #### [facility] [address] [place] [address], [facility] RBC (Bld) [#/Vol] 4.87 10*6/uL Normal 3.80-5.00 [facility] Comment on above: Order Comment: No: D o not add to previous draw Performed By: #### 8 5499 #### [facility] [address] [place] [address], [facility] WBC (Bld) [#/Vol] 7.08 10*3/uL Normal 4.00-10.60 [facility] Comment on above: Order Comment: No: D o not add to previous draw Performed By: #### 8 5499 #### [facility] [address] [place] [address], [facility] MAGNESIUM BLOODon 03-17-2022 Magnesium [Mass/Vol] 1.5 mg/dL Low 1.9-2.7 [facility] Comment on above: Order Comment: No: D o not add to previous draw Performed By: #### 1 0070, 92656 #### [facility] [address] [place] [address], [facility] POC GLUCOSE LABon 03-17-2022 Glucose [Mass/Vol] 199 mg/dL High 70-100 [facility] Comment on above: Performed By: #### 3 5200 #### [facility] [address] [place] [address], [place] Glucose [Mass/Vol] 152 mg/dL High 70-100 [facility] Comment on above: Performed By: #### 8 5499 #### [facility] [address] [place] [address], [place] Glucose [Mass/Vol] 282 mg/dL High 70-100 [facility] Comment on above: Performed By: #### 8 5499 #### [facility] [address] [place] [address], [place] Glucose [Mass/Vol] 406 mg/dL High 70-100 [facility] Comment on above: Performed By: #### 1 0070, 93377 #### [facility] [address] [place] [address], [place] TROPONIN-Ion 03-17-2022 Troponin I.cardiac [Mass/Vol] 0.06 ng/mL High 0.00-0.[address] [facility] Comment on above: Order Comment: No: D o not add to previous draw Result Comment: REFE RENCE RANGES: 0.00 - 0.04 ng/ml NORMAL 0.05 - 0.50 ng/ml INDETERMINATE > 0.50 ng/ml CONSISTENT WITH AN M.I. Performed By: #### 1 0070, 51840 #### [facility] [address] [place] [address], [place] Troponin I.cardiac [Mass/Vol] 0.06 ng/mL High 0.00-0.04 [facility] Comment on above: Order Comment: No: D o not add to previous draw Result Comment: REFE RENCE RANGES: 0.00 - 0.04 ng/ml NORMAL 0.05 - 0.50 ng/ml INDETERMINATE > 0.50 ng/ml CONSISTENT WITH AN M.I. Performed By: #### 3 5200 #### [facility] [address] [place] [address], [place] Troponin I.cardiac [Mass/Vol] 0.05 ng/mL High 0.00-0.04 [facility] Comment on above: Order Comment: No: D o not add to previous draw Result Comment: REFE RENCE RANGES: 0.00 - 0.04 ng/ml NORMAL 0.05 - 0.50 ng/ml INDETERMINATE > 0.50 ng/ml CONSISTENT WITH AN M.I. Performed By: #### 1 0070, 26063 #### [facility] [address] [place] [address], [facility] BASIC METABOLIC PANELon 06-2 Calcium [Mass/Vol] 9.1 mg/dL Normal 8.6-10.3 [facility] Comment on above: Order Comment: No: D o not add to previous draw Performed By: #### 8 5499 #### [facility] [address] [place] [address], [place] Chloride [Moles/Vol] 103 mmol/L Normal 98-107 [facility] Comment on above: Order Comment: No: D o not add to previous draw Performed By: #### 8 5499 #### [facility] [address] [place] [address], [place] CO2 [Moles/Vol] 24 mmol/L Normal 21-31 [facility] Comment on above: Order Comment: No: D o not add to previous draw Performed By: #### 8 5499 #### [facility] [address] [place] [address], [place] Creatinine [Mass/Vol] 0.68 mg/dL Normal 0.60-1.20 [facility] Comment on above: Order Comment: No: D o not add to previous draw Performed By: #### 8 5499 #### [facility] [address] [place] [address], [place] GFR/1.73 sq M.predicted among blacks MDRD (S/P/Bld) [Vol rate/Area] mL/min/{1.73_m2} Normal >60 [facility] Comment on above: Order Comment: No: D o not add to previous draw Performed By: #### 8 5499 #### [facility] [address] [place] [address], [facility] GFR/1.73 sq M.predicted among non-blacks MDRD (S/P/Bld) [Vol rate/Area] mL/min/{1.73_m2} Normal >60 [facility] Comment on above: Order Comment: No: D o not add to previous draw Performed By: #### 8 5499 #### [facility] [address] [place] [address], [facility] Glucose [Mass/Vol] 196 mg/dL High 70-100 [facility] Comment on above: Order Comment: No: D o not add to previous draw Performed By: #### 8 5499 #### [facility] [address] [place] [address], [facility] Potassium [Moles/Vol] 4.1 mmol/L Normal 3.5-5.1 [facility] Comment on above: Order Comment: No: D o not add to previous draw Performed By: #### 8 5499 #### [facility] [address] [place] [address], [facility] Sodium [Moles/Vol] 137 mmol/L Normal 136-145 [facility] Comment on above: Order Comment: No: D o not add to previous draw Performed By: #### 8 5499 #### [facility] [address] [place] [address], [facility] Urea nitrogen [Mass/Vol] 12 mg/dL Normal 7-25 [facility] Comment on above: Order Comment: No: D o not add to previous draw Performed By: #### 8 5499 #### [facility] [address] [place] [address], [facility] BNP (B-TYPE NATRIURETIC PEPT RAMAN)on 03-16-2022 Natriuretic peptide B (Bld) [Mass/Vol] 208 pg/mL High 0-100 [facility] Comment on above: Order Comment: No: D o not add to previous draw Result Comment: Give n the appropriate clinical setting a BNP result of >100 pg/mL indicates congestive heart failure. Performed By: #### 1 0070, 56550 #### [facility] [place] [address], [facility] CARDIAC VICK 3-6on 2 CK [Catalytic activity/Vol] 45 U/L Normal 26-192 [facility] Comment on above: Performed By: #### C MREP ####[facility] [address] [place] [id number]. Antonella Medrano CK [Catalytic activity/Vol] 43 U/L Normal 26-192 [facility] Comment on above: Performed By: #### C MREP ####[facility] [address] [place] [id number]. Antonella Medrano CK.MB [Mass/Vol] 1.64 ng/mL Normal <=3.60 [facility] Comment on above: Performed By: #### C MREP ####[facility] [address] [place] [id number]. Yifilemon Medrano CK.MB [Mass/Vol] 1.84 ng/mL Normal <=3.60 [facility] Comment on above: Performed By: #### C MREP ####[facility] Cpisfzrlhv[address] [place] [id number]. Antonella Medrano HSTROP 88.9 pg/mL Critically high 4.0-51.3 [facility] Comment on above: Result Comment: CUT- OFF POINTS HAVE BEEN ESTABLISHED BASED ON THE FOURTH UNIVERSAL DEFINITIONS OF MYOCARDIALINFARCTION. THE UPPER REFERENCE LIMIT (URL) OF TROPONIN, DEFINED THE 99TH PERCENTILE OFcTnI DISTRIBUTION IN A REFERENCE POPULATION, HAS BEEN CONFIRMED THE DECISION THRESHOLDFOR [place] DIAGNOSIS. Performed By: #### C MREP ####[facility] [address]ls[address] [place], [place] [address]Dr. Antonella Medrano HSTROP 111.7 pg/mL Critically high 4.0-51.3 [facility] Comment on above: Result Comment: CUT- OFF POINTS HAVE BEEN ESTABLISHED BASED ON THE FOURTH UNIVERSAL DEFINITIONS OF MYOCARDIALINFARCTION. THE UPPER REFERENCE LIMIT (URL) OF TROPONIN, DEFINED THE 99TH PERCENTILE OFcTnI DISTRIBUTION IN A REFERENCE POPULATION, HAS BEEN CONFIRMED THE DECISION THRESHOLDFOR [place] DIAGNOSIS.repeated Performed By: #### C MREP ####[facility] [address] [place] [address]Dr. Antonella Medrano CARDIAC VICK ADMITon 022 CK [Catalytic activity/Vol] 45 U/L Normal 26-192 [facility] Comment on above: Performed By: #### B MARLEY, EMMANUEL ####[facility] [address] [place] [address]Dr. Antonella Medrano CK.MB [Mass/Vol] 1.93 ng/mL Normal <=3.60 [facility] Comment on above: Performed By: #### B MARLEY, EMMANUEL ####[facility] [address] [place], [place] [address]Dr. Antonella Medrano HSTROP 84.6 pg/mL Critically high 4.0-51.3 [facility] Comment on above: Result Comment: CUT- OFF POINTS HAVE BEEN ESTABLISHED BASED ON THE FOURTH UNIVERSAL DEFINITIONS OF MYOCARDIALINFARCTION. THE UPPER REFERENCE LIMIT (URL) OF TROPONIN, DEFINED THE 99TH PERCENTILE OFcTnI DISTRIBUTION IN A REFERENCE POPULATION, HAS BEEN CONFIRMED THE DECISION THRESHOLDFOR [place] DIAGNOSIS. Performed By: #### B MARLEY, EMMANUEL ####[facility] [address] [place] [address]Dr. Antonella Medrano CHRISTOPHER 79 ng/mL Normal 9-82 [facility] Comment on above: Performed By: #### B MARLEY, ALVARODM ####[facility] [address] [place] [address]Dr. Antonella Medrano CBC AUTO DIFFon 03-16-2022 BASO # 0.0 103/ul Normal 0.0-0.1 [facility] Comment on above: Performed By: #### C BC ####[facility] Qxrlbozzaw[address] [place] [address]Dr. Antonella Medrano Basophils/100 WBC (Bld) 0.5 % Normal 0.2-2.0 [facility] Comment on above: Performed By: #### C BC ####[facility] Pkpegfsxbk86[address] [place] [id number]. Antonella Medrano EO # 0.2 103/ul Normal 0.0-0.7 [facility] Comment on above: Performed By: #### C BC ####[facility] Ek[address] [place] [address]Dr. Antonella Medrano Eosinophils/100 WBC (Bld) 2.9 % Normal 0.9-7.0 [facility] Comment on above: Performed By: #### C BC ####[facility] Bbxmt[address] [place], [place] [address]Dr. Antonella Medrano Erythrocyte distribution width (RBC) [Ratio] 13.2 % Normal 11.0-15.0 [facility] Comment on above: Performed By: #### C BC ####[facility] [address] [place], [place] [address]Dr. Antonella Medrano Hematocrit (Bld) [Volume fraction] 44.5 % Normal 36.0-48.0 [facility] Comment on above: Performed By: #### C BC ####[facility] Wkroubdarj[address] [place], [place] [address]Dr. Antonella Medrano Hemoglobin (Bld) [Mass/Vol] 14.7 g/dL Normal 12.0-16.0 [facility] Comment on above: Performed By: #### C BC ####[facility] [address]xpftls[address] [place], [place] [address]Dr. Antonella Medrano IG # 0.10 10e3/ul Critically high 0.00-0.03 [facility] Comment on above: Performed By: #### C BC ####[facility] Emtblhrbeh[address] [place], [place] [address]Dr. Antonella Medrano IG % 1.3 % Critically high 0.0-0.5 [facility] Comment on above: Performed By: #### C BC ####[facility] Grotbwyuc[address] [place], [place] [address]Dr. Antonella Medrnao LYMPH # 1.7 103/ul Normal 1.2-3.8 [facility] Comment on above: Performed By: #### C BC ####[facility] Qavgxsumhc2077 [place] [id number]. Mariafilemon Medrano Lymphocytes/100 WBC (Bld) 22.0 % Normal 20.5-60.0 [facility] Comment on above: Performed By: #### C BC ####[facility] Ttz[address]afpg[address] [place] [id number]. Antonella Medrano MANUAL DIFF REQ NO Normal [facility] Comment on above: Performed By: #### C BC ####[facility] Jwgltxbjxs5803 [place] [id number]. Antonella Medrano MCH (RBC) [Entitic mass] 28.7 pg Normal 26.7-34.0 [facility] Comment on above: Performed By: #### C BC ####[facility] Zxhptlxn[address] [place], [place] [address]Dr. Antonella Medrano MCHC (RBC) [Mass/Vol] 33.0 g/dL Normal 29.9-35.2 [facility] Comment on above: Performed By: #### C BC ####[facility] [address] [place], [place] [address]Dr. Antonella Medrano MCV (RBC) [Entitic vol] 86.7 fL Normal 81.0-99.0 [facility] Comment on above: Performed By: #### C BC ####[facility] [address]mbmuq[address] [place], [place] [address]Dr. Antonella Medrano MONO # 0.7 103/ul Normal 0.3-0.8 [facility] Comment on above: Performed By: #### C BC ####[facility] [address]wi[address] [place], [place] [address]Dr. Antonella Medrano Monocytes/100 WBC (Bld) 9.8 % Normal 1.7-12.0 [facility] Comment on above: Performed By: #### C BC ####[facility] [address]dsner[address] [place], [place] [address]Dr. Antonella Medrano NEUT # 4.8 103/ul Normal 1.4-6.5 [facility] Comment on above: Performed By: #### C BC ####[facility] Nvw[address]oy[address]bk6[address] [place] [address]Dr. Antonella Medrano Neutrophils/100 WBC (Bld) 63.5 % Normal 43.0-75.0 [facility] Comment on above: Performed By: #### C BC ####[facility] Mak[address]hiqtec[address] [place] [address]Dr. Antonella Medrano Platelet mean volume (Bld) [Entitic vol] 10.5 fL Normal 9.5-13.5 [facility] Comment on above: Performed By: #### C BC ####[facility] [address]fu[address]xay[address] [place] [address]Dr. Antonella Medrano PLT 262 103/ul Normal 150-450 [facility] Comment on above: Performed By: #### C BC ####[facility] Rkigwlrb[address] [place], [place] [address]Dr. Antonella Medrano RBC 5.13 106/ul Normal 4.20-5.40 [facility] Comment on above: Performed By: #### C BC ####[facility] Fsqunyxtdt1426 [place] [id number]. Antonella Medrano WBC 7.5 103/ul Normal 4.0-11.0 [facility] Comment on above: Performed By: #### C BC ####[facility] [address]zils[address] [place], [place] [address]Dr. Antonella Medrano CBC W/DIFFon 03-16-2022 ABS IMM GRANS 0.1 10*3/uL Normal 0.0-0.2 [facility] Comment on above: Performed By: #### 1 0070, 03886 #### [facility] [address] [place] [address], [facility] ABS NEUTROPHILS 4.3 10*3/uL Normal 1.6-7.6 [facility] Comment on above: Performed By: #### 1 0070, 47798 #### [facility] [address] [place] [address], [facility] Basophils (Bld) [#/Vol] 0.0 10*3/uL Normal 0.0-0.2 [facility] Comment on above: Performed By: #### 1 69, 02942 #### [facility] [address] [place] [address], [facility] Basophils/100 WBC (Bld) 0.3 % Normal 0.0-1.0 [facility] Comment on above: Performed By: #### 1 69, 85394 #### [facility] [address] [place] [address], [facility] Eosinophils (Bld) [#/Vol] 0.3 10*3/uL Normal 0.0-0.5 [facility] Comment on above: Performed By: #### 1 69, 97313 #### [facility] [address] [place] [address], [facility] Eosinophils/100 WBC (Bld) 3.4 % Normal 0.0-6.0 [facility] Comment on above: Performed By: #### 1 69, 00156 #### [facility] [address] Erythrocyte distribution width (RBC) [Ratio] 13.5 % Normal 11.5-15.0 [facility] Comment on above: Performed By: #### 1 69, 19582 #### [facility] [address] Hematocrit (Bld) [Volume fraction] 46.2 % High 36.0-45.0 [facility] Comment on above: Performed By: #### 1 69, 56985 #### [facility] [address] [place] [address], [facility] Hemoglobin (Bld) [Mass/Vol] 15.3 g/dL High 12.0-15.0 [facility] Comment on above: Performed By: #### 1 69, 73833 #### [facility] [address] IMMATURE GRANS 0.9 % Normal 0.0-1.0 [facility] Comment on above: Performed By: #### 1 69, 71000 #### [facility] [address] Lymphocytes (Bld) [#/Vol] 2.2 10*3/uL Normal 1.2-4.0 [facility] Comment on above: Performed By: #### 1 69, 76091 #### [facility] [address] Lymphocytes/100 WBC (Bld) 29.1 % Normal 20.0-45.0 [facility] Comment on above: Performed By: #### 1 69, 42399 #### [facility] [address] MCH (RBC) [Entitic mass] 28.4 pg Normal 27.0-33.0 [facility] Comment on above: Performed By: #### 1 69, 63883 #### [facility] [address] MCHC (RBC) [Mass/Vol] 33.1 g/dL Normal 32.0-35.0 [facility] Comment on above: Performed By: #### 1 69, 92125 #### [facility] [address] MCV (RBC) [Entitic vol] 85.9 fL Normal 82.0-98.0 [facility] Comment on above: Performed By: #### 1 69, 82999 #### [facility] [address] [place] [address], [facility] Monocytes (Bld) [#/Vol] 0.7 10*3/uL Normal 0.1-1.0 [facility] Comment on above: Performed By: #### 1 69, 81657 #### [facility] [address] [place] [id number], [facility] MONOS 9.8 % Normal 5.0-12.0 [facility] Comment on above: Performed By: #### 1 69, 83754 #### [facility] [address] [place] [address], [facility] Neutrophils/100 WBC (Bld) 56.5 % Normal 40.0-72.0 [facility] Comment on above: Performed By: #### 1 69, 42144 #### [facility] [address] [facility] [place] [address], [facility] Nucleated RBC/100 WBC (Bld) [Ratio] 0 % Normal 0-0 [facility] Comment on above: Performed By: #### 1 69, 25164 #### [facility] [address] [place] [address], [facility] PLAT CNT 245 10*3/uL Normal 150-400 [facility] Comment on above: Performed By: #### 1 69, 24017 #### [facility] [address] [facility] [place] [address], [facility] RBC (Bld) [#/Vol] 5.38 10*6/uL High 3.80-5.00 [facility] Comment on above: Performed By: #### 1 69, 32010 #### [facility] [address] [facility] [place] [address], [facility] WBC (Bld) [#/Vol] 7.56 10*3/uL Normal 4.00-10.60 [facility] Comment on above: Performed By: #### 1 69, 27212 #### [facility] [address] [place] [address], [facility] CULTURE URINEon 03-16-2022 CULTURE URINE Culture Observations : MODERATE GROWTH OF MIXED GENITAL LUCY. NO POTENTIAL PATHOGENS SEEN. Normal [facility] Comment on above: Performed By: #### U RCX ####[facility] Cfuwipauvu[address] [place], [place] [address]Dr. Antonella Medrano Covid-19 PCR (CVDTB)on 02-22 SARS-CoV-2 (COVID-19) RNA TAISHA+probe Ql (Unsp spec) Not detected Normal NOT DETECTED [facility] Comment on above: Result Comment: When [...] for this test is supported by the [place] of Health and Human Service's declaration that [...] be used). Performed By: #### C VDTBH ####[facility] M[address]wwhbuky[address] [place], [place] [address]Dr. Antonella Medrano ER URINE PROFILEon 2 Bilirubin Ql (U) Negative Normal NEGATIVE [facility] Comment on above: Performed By: #### HALEY CLARK ####[facility] Cdbtztyhfq[address] [place], [place] [address]Dr. Antonella Medrano Clarity (U) CLEAR Normal CLEAR [facility] Comment on above: Performed By: #### E HALEY LEE ####[facility] [address]imvafe[address] [place], [place] [address]Dr. Antonella Medrano Color (U) LT. YELLOW Normal YELLOW [facility] Comment on above: Performed By: #### E HALEY LEE ####[facility] Cpbcbbelkr[address] [place], [place] [address]Dr. Antonella LABOY A micrscopic examina tion will be performed if indicated. Normal [facility] Comment on above: Performed By: #### LATA CLARKRO ####[facility] Vrerbyvswz[address] [place], [place] [address]Dr. Antonella Medrano Glucose Ql (U) >1000 Abnormal NEGATIVE [facility] Comment on above: Performed By: #### LATA CLARKRO ####[facility] [address]mdnbbytq[address] [place], [place] [address]Dr. Antonella Medrano Hemoglobin Ql (U) TRACE-INTACT Abnormal NEGATIVE [facility] Comment on above: Performed By: #### Daniela LEE UMICRO ####[facility] Uom[address]ylfm[address] [place], [place] [address]Dr. Antonella Medrano Ketones Ql (U) Negative Normal NEGATIVE [facility] Comment on above: Performed By: #### HEAVENLY CLARKICRO ####[facility] Obcxagncup[address] [place], [place] [address]Dr. Antonella Medrano LEUKOCYTES Negative Normal NEGATIVE [facility] Comment on above: Performed By: #### HEAVENLY CLARKICRO ####[facility] [address] [place], [place] [address]Dr. Antonella Medrano Nitrite Ql (U) Negative Normal NEGATIVE [facility] Comment on above: Performed By: #### LATA CLARKRO ####[facility] [address]oxurfkta[address] [place], [place] [address]Dr. Antonella Medrano pH (U) 6.0 [pH] Normal 5-9 [facility] Comment on above: Performed By: #### LATA CLARKRO ####[facility] [address]xbsfbad[address] [place], [place] [address]Dr. Antonella Medrano SPEC GRAVITY 1.010 Normal 1.005-<=1.0 25 [facility] Comment on above: Performed By: #### HEAVENLY CLARKICRO ####[facility] [address] [place], [place] [address]Dr. Antonella Medrano UA PROTEIN TRACE Normal NEGATIVE/ TRACE [facility] Comment on above: Performed By: #### LATA CLARKRO ####[facility] [address] [place], [place] [address]Kt. Antonella Medrano UR MICRO IND INDICATED Normal The [facility] Comment on above: Performed By: #### LATA CLARKRO ####[facility] Ikq[address]ig[address] [place], [place] [address]Xp. Antonella Medrano Urobilinogen Qn (U) 0.2 {Oleg'U}/dL Normal 0.2 - 1. 0 [facility] Comment on above: Performed By: #### LATA CLARKRO ####[facility] Oofxyqdanb[address] [place], [place] [address]Po. Antonella Medrano POC GLUCOSE LABon 03-16-2022 Glucose [Mass/Vol] 197 mg/dL High 70-100 [facility] Comment on above: Performed By: #### 1 0070, [id number] #### [facility] [address] [facility] [place] [address], [facility] Glucose [Mass/Vol] 288 mg/dL High 70-100 [facility] Comment on above: Performed By: #### 1 0070, [id number] #### [facility] [address] [place] [address], [facility] Glucose [Mass/Vol] 337 mg/dL High 70-100 [facility] Comment on above: Performed By: #### 8 [id number] #### [facility] [address] [facility] POC SARS COV2 ANTIGEN NEGATI VEon 03-16-2022 POC SARS COV2 ANTIGEN NEG Negative Normal NEGATIVE [facility] Comment on above: Result Comment: Nega [...] antigen from SARS-CoV-2 in direct nasopharyngeal swab (PROGRAM DIRECTOR/MUSIC DIRECTOR) specimens from individuals who are suspected of [...] Accreditation. Performed By: #### 8 5499 #### [facility] [address] POINT OF CARE GLUCOSEon 02-22 Glucose [Mass/Vol] 516 mg/dL Critically high 74-106 [facility] Comment on above: Result Comment: Resu lt Not Confirmed Performed By: #### P OCGLUC ####[facility] [address] [place] [address]Dr. Antonella Medrano Glucose [Mass/Vol] 343 mg/dL Critically high 74-106 [facility] Comment on above: Performed By: #### P OCGLUC ####[facility] Ztrdtgcfdt8[address] [place] [address]Dr. Antonella Medrano PROF CHEM 8 (BAS METB)on Anion gap [Moles/Vol] 10.9 mmol/L Normal [facility] Comment on above: Performed By: #### B MARLEY, CMADM ####[facility] [address] [place] [id number]. Antonella Medrano Calcium [Mass/Vol] 8.9 mg/dL Normal 8.5-10.1 [facility] Comment on above: Performed By: #### B MP, CMADM ####[facility] [address] [place] [address]Dr. Antonella Medrano Chloride [Moles/Vol] 99 mmol/L Normal 98-107 [facility] Comment on above: Performed By: #### B MARLEY, CMADM ####[facility] Xkulwnffxo[address] [place] [address]Dr. Antonella Medrano CO2 [Moles/Vol] 29.1 mmol/L Normal 21.0-32.0 [facility] Comment on above: Performed By: #### B MARLEY, CMADM ####[facility] Tspkmclcyt[address] [place] [address]Dr. Antonella Medrano Creatinine [Mass/Vol] 1.05 mg/dL Critically high 0.55-1.02 [facility] Comment on above: Performed By: #### B MARLEY, CMADM ####[facility] Jdvydwrpsr[address] [place], [place] [address]Dr. Antonella Medrano EGFR-AF IVORIAN >60 Normal >=60 [facility] Comment on above: Performed By: #### B MARLEY, CMADM ####[facility] Ahcoalunui[address] [place], [place] [address]Dr. Antonella Medrano EGFR-NON AF IVORIAN 53 mL/min/1.73m2 Critically low >=60 [facility] Comment on above: Performed By: #### B MARLEY, CMADM ####[facility] Oniwkomjhj[address] [place], [place] [address]Dr. Antonella Medrano Glucose [Mass/Vol] 466 mg/dL Critically high 74-106 [facility] Comment on above: Performed By: #### B MARLEY, CMADM ####[facility] Vjlmeoxnxu[address] [place], [place] [address]Dr. Antonella Medrano Potassium [Moles/Vol] 4.0 mmol/L Normal 3.5-5.1 [facility] Comment on above: Performed By: #### B MARLEY, CMADM ####[facility] [address]pc[address] [place], [place] [address]Dr. Antonella Medrano Sodium [Moles/Vol] 135 mmol/L Critically low 136-145 [facility] Comment on above: Performed By: #### B MARLEY, CMADM ####[facility] Eperdotkyi[address] [place], [place] [address]Dr. Antonella Medrano Urea nitrogen [Mass/Vol] 16.0 mg/dL Normal 7.0-18.0 [facility] Comment on above: Performed By: #### B EMMANUEL ROACH ####[facility] [address]hw[address] [place] [id number]. Antonella Medrano Urea nitrogen/Creatinine [Mass ratio] 15.2 mg/mg Normal [facility] Comment on above: Performed By: #### B EMMANUEL ROACH ####[facility] [address]ew[address] [place] [id number]. Antonella Medrano TROPONIN-Ion 03-16-2022 Troponin I.cardiac [Mass/Vol] 0.08 ng/mL High 0.00-0.[address] [facility] Comment on above: Order Comment: No: D o not add to previous draw Result Comment: REFE RENCE RANGES: 0.00 - 0.04 ng/ml NORMAL 0.05 - 0.50 ng/ml INDETERMINATE > 0.50 ng/ml CONSISTENT WITH AN M.I. Performed By: #### 8 5499 #### [facility] [address] [place] [address], [facility] Troponin I.cardiac [Mass/Vol] 0.07 ng/mL High 0.00-0.[address] [facility] Comment on above: Order Comment: No: D o not add to previous draw Result Comment: REFE RENCE RANGES: 0.00 - 0.04 ng/ml NORMAL 0.05 - 0.50 ng/ml INDETERMINATE > 0.50 ng/ml CONSISTENT WITH AN M.I. Performed By: #### 3 5200 #### [facility] [address] [place] [address], [facility] URINE MICROSCOPIC ONLYon BACTERIA TRACE Abnormal NONE SEEN [facility] Comment on above: Performed By: #### HALEY CLARK ####[facility] L[address]eigx[address] [place] [id number]. Mariafilemon Medrano Bacteria identified Cx Nom (U) INDICATED Normal [facility] Comment on above: Performed By: #### HALEY CLARK ####[facility] [address] [place] [address]Dr. Antonella Mitchell CAST NONE SEEN Normal NONE SEEN [facility] Comment on above: Performed By: #### HALEY CLARK ####[facility] Htbzzmiicg40[address] [place] [address]Dr. Antonella Mitchell Crystals LM Nom (Urine sed) NONE SEEN Normal NONE SEEN [facility] Comment on above: Performed By: #### HALEY CLARK ####[facility] R[address]xfvql[address] [place], [place] [address]Dr. Mariafilemon Medrano Epithelial cells LM Ql (Urine sed) FEW Abnormal NONE SEEN /RARE [facility] Comment on above: Performed By: #### HALEY CLARK ####[facility] Vntfrxbltc[address] [place], [place] [address]Dr. Antonella Medrano MUCOUS NONE SEEN Normal NONE SEEN [facility] Comment on above: Performed By: #### HALEY CLARK ####[facility] [address]cmekx[address] [place], [place] [address]Dr. Antonella Medrano RBC 5-10 Abnormal 0-2 [facility] Comment on above: Performed By: #### HALEY CLARK ####[facility] Jkpvpfcvif[address] [place], [place] [address]Dr. Mariafilemon Medrano WBC 10-20 Abnormal NONE SEEN [facility] Comment on above: Performed By: #### HALEY CLARK ####[facility] [address]xir[address] [place], [place] [address]Dr. Antonella Medrano XR CHEST 1 Von 03-16-2022 XR CHEST 1 V Normal [facility] CBC AUTO DIFFon 02-17-2022 BASO # 0.0 103/ul Normal 0.0-0.1 [facility] Comment on above: Performed By: #### C BC ####[facility] [address] [place], [place] [address]Dr. Antonella Medrano Basophils/100 WBC (Bld) 0.4 % Normal 0.2-2.0 [facility] Comment on above: Performed By: #### C BC ####[facility] [address]skk[address] [place] [id number]. Antonella Medrano EO # 0.2 103/ul Normal 0.0-0.7 [facility] Comment on above: Performed By: #### C BC ####[facility] Owstgdpnnp24[address] [place] [address]Dr. Antonella Medrano Eosinophils/100 WBC (Bld) 2.8 % Normal 0.9-7.0 [facility] Comment on above: Performed By: #### C BC ####[facility] Oakjhggelo[address] [place], [place] [address]Dr. Antonella Medrano Erythrocyte distribution width (RBC) [Ratio] 12.5 % Normal 11.0-15.0 [facility] Comment on above: Performed By: #### C BC ####[facility] [address]rmy[address] [place], [place] [address]Dr. Antonella Medrano Hematocrit (Bld) [Volume fraction] 45.7 % Normal 36.0-48.0 [facility] Comment on above: Performed By: #### C BC ####[facility] [address]ij[address] [place], [place] [address]Dr. Antonella Medrano Hemoglobin (Bld) [Mass/Vol] 15.1 g/dL Normal 12.0-16.0 [facility] Comment on above: Performed By: #### C BC ####[facility] Vxmpb[address]av[address] [place], [place] [address]Dr. Antonella Medrano IG # 0.04 10e3/ul Critically high 0.00-0.03 [facility] Comment on above: Performed By: #### C BC ####[facility] Qvausurvza[address] [place], [place] [address]Dr. Antonella Medrano IG % 0.5 % Normal 0.0-0.5 [facility] Comment on above: Performed By: #### C BC ####[facility] Mugksamavo[address] [place], [place] [address]Dr. Mariafilemon Medrano LYMPH # 2.3 103/ul Normal 1.2-3.8 [facility] Comment on above: Performed By: #### C BC ####[facility] R[address]kedvnw40[address] [place] [id number]. Antonella Medrano Lymphocytes/100 WBC (Bld) 26.7 % Normal 20.5-60.0 [facility] Comment on above: Performed By: #### C BC ####[facility] Xvuthwnrru[address] [place] [id number]. Antonella Mitchell MANUAL DIFF REQ NO Normal [facility] Comment on above: Performed By: #### C BC ####[facility] Hlcyherwms[address] [place] [address]Dr. Antonella Mitchell MCH (RBC) [Entitic mass] 28.4 pg Normal 26.7-34.0 [facility] Comment on above: Performed By: #### C BC ####[facility] Tazazfgcqz[address] [place] [address]Dr. Antonella Mitchell MCHC (RBC) [Mass/Vol] 33.0 g/dL Normal 29.9-35.2 [facility] Comment on above: Performed By: #### C BC ####[facility] [address]tpdgyygar[address] [place], [place] [address]Dr. Antonella Mitchell MCV (RBC) [Entitic vol] 86.1 fL Normal 81.0-99.0 [facility] Comment on above: Performed By: #### C BC ####[facility] Glrsuztkwu[address] [place], [place] [address]Dr. Mariafilemon Mitchell MONO # 0.7 103/ul Normal 0.3-0.8 [facility] Comment on above: Performed By: #### C BC ####[facility] Bmlgdmxlnj6[address] [place] [address]Dr. Antonella Mitchell Monocytes/100 WBC (Bld) 7.8 % Normal 1.7-12.0 [facility] Comment on above: Performed By: #### C BC ####[facility] Wipbigyrhq19[address] [place] [address]Dr. Antonella Medrano NEUT # 5.2 103/ul Normal 1.4-6.5 [facility] Comment on above: Performed By: #### C BC ####[facility] Cfapfcnrpd2581 [place] [id number]. Antonella Medrano Neutrophils/100 WBC (Bld) 61.8 % Normal 43.0-75.0 [facility] Comment on above: Performed By: #### C BC ####[facility] Nxpfxvvmtm2791 [place] [id number]. Antonella Medrano Platelet mean volume (Bld) [Entitic vol] 11.8 fL Normal 9.5-13.5 [facility] Comment on above: Performed By: #### C BC ####[facility] Fxzahnmftt2243 [place] [id number]. Antonella Medrano PLT 203 103/ul Normal 150-450 [facility] Comment on above: Performed By: #### C BC ####[facility] Umnxxgzulw0817 [place] [address]Dr. Antonella Medrano RBC 5.31 106/ul Normal 4.20-5.40 [facility] Comment on above: Performed By: #### C BC ####[facility] Re[address]llqimq48[address] [place] [id number]. Antonella Medrano WBC 8.4 103/ul Normal 4.0-11.0 [facility] Comment on above: Performed By: #### C BC ####[facility] Karlaimebc37[address] [place] [address]Dr. Antonella Medrano POINT OF CARE GLUCOSEon 01-22 Glucose [Mass/Vol] 288 mg/dL Critically high 74-106 [facility] Comment on above: Performed By: #### P OCGLUC ####[facility] Wpegeavwkl3698 [place] [address]Dr. Antonella Medrano Glucose [Mass/Vol] 363 mg/dL Critically high 74-106 [facility] Comment on above: Performed By: #### P OCGLUC ####[facility] Qxkworttmc2486 [place] [address]Dr. Antonella Medrano PROF CHEM 8 (BAS METB)on Anion gap [Moles/Vol] 12.1 mmol/L Normal [facility] Comment on above: Performed By: #### B MP ####[facility] C[address]jemoixn[address] [place] [address]Dr. Antonella Medrano Calcium [Mass/Vol] 8.7 mg/dL Normal 8.5-10.1 [facility] Comment on above: Performed By: #### B MP ####[facility] Khkphuwwqv3451 [place] [address]Dr. Antonella Medrano Chloride [Moles/Vol] 104 mmol/L Normal 98-107 [facility] Comment on above: Performed By: #### B MP ####[facility] Z[address]qufvslwq[address] [place], [place] [address]Dr. Antonella Medrano CO2 [Moles/Vol] 23.3 mmol/L Normal 21.0-32.0 [facility] Comment on above: Performed By: #### B MP ####[facility] [address]qumxpmzdq[address] [place], [place] [address]Dr. Antonella Medrano Creatinine [Mass/Vol] 0.79 mg/dL Normal 0.55-1.02 [facility] Comment on above: Performed By: #### B MP ####[facility] Laagwxyocp[address] [place], [place] [address]Dr. Antonella Medrano EGFR-AF IVORIAN >60 Normal >=60 [facility] Comment on above: Performed By: #### B MP ####[facility] Cqixlouhwr[address] [place], [place] [address]Dr. Antonella Medrano EGFR-NON AF IVORIAN >60 Normal >=60 [facility] Comment on above: Performed By: #### B MP ####[facility] Cmlwpdvoyp[address] [place], [place] [address]Dr. Antonella Medrano Glucose [Mass/Vol] 291 mg/dL Critically high 74-106 [facility] Comment on above: Performed By: #### B MP ####[facility] Ixqvjrhoha[address] [place], [place] [address]Dr. Antonella Medrano Potassium [Moles/Vol] 4.4 mmol/L Normal 3.5-5.1 [facility] Comment on above: Performed By: #### B MP ####[facility] Hzfyostdzf5770[address] [place], [place] [address]Dr. Antonella Medrano Sodium [Moles/Vol] 135 mmol/L Critically low 136-145 [facility] Comment on above: Performed By: #### B MP ####[facility] Ggbrgtgdui[address] [place], [place] [address]Dr. Antonella Medrano Urea nitrogen [Mass/Vol] 20.0 mg/dL Critically high 7.0-18.0 [facility] Comment on above: Performed By: #### B MP ####[facility] Ujsxzbrapv09[address] [place], [place] [address]Dr. Antonella Medrano Urea nitrogen/Creatinine [Mass ratio] 25.3 mg/mg Normal [facility] Comment on above: Performed By: #### B MP ####[facility] Nagvqiupvm67[address] [place], [place] [address]Dr. Antonella Medrano CBC AUTO DIFFon 02-16-2022 BASO # 0.0 103/ul Normal 0.0-0.1 [facility] Comment on above: Performed By: #### C BC ####[facility] [address]zchwegyc[address] [place], [place] [address]Dr. Antonella Mitchell Basophils/100 WBC (Bld) 0.3 % Normal 0.2-2.0 [facility] Comment on above: Performed By: #### C BC ####[facility] Fpikquujfv[address] [place], [place] [address]Dr. Antonella Medrano EO # 0.1 103/ul Normal 0.0-0.7 [facility] Comment on above: Performed By: #### C BC ####[facility] Rrrimbffxv50[address] [place], [place] [address]Dr. Antonella Mitchell Eosinophils/100 WBC (Bld) 1.2 % Normal 0.9-7.0 [facility] Comment on above: Performed By: #### C BC ####[facility] Iosezmbyim04[address] [place], [place] [address]Dr. Antonella Medrano Erythrocyte distribution width (RBC) [Ratio] 12.5 % Normal 11.0-15.0 [facility] Comment on above: Performed By: #### C BC ####[facility] Ueditlhyej[address] [place] [address]Dr. Antonella Medrano Hematocrit (Bld) [Volume fraction] 51.7 % Critically high 36.0-48.0 [facility] Comment on above: Performed By: #### C BC ####[facility] Lhqdlnwclb3464 [place] [address]Dr. Antonella Medrano Hemoglobin (Bld) [Mass/Vol] 17.2 g/dL Critically high 12.0-16.0 [facility] Comment on above: Performed By: #### C BC ####[facility] Mbiuotzyli[address] [place], [place] [address]Dr. Antonella Medrano IG # 0.08 10e3/ul Critically high 0.00-0.03 [facility] Comment on above: Performed By: #### C BC ####[facility] Hxlpryscxp[address] [place], [place] [address]Dr. Antonella Medrano IG % 0.8 % Critically high 0.0-0.5 [facility] Comment on above: Performed By: #### C BC ####[facility] Grmxihvhsa[address] [place], [place] [address]Dr. Antonella Medrano LYMPH # 2.3 103/ul Normal 1.2-3.8 [facility] Comment on above: Performed By: #### C BC ####[facility] Uxtpcmcevu[address] [place], [place] [address]Dr. Antonella Medrano Lymphocytes/100 WBC (Bld) 22.1 % Normal 20.5-60.0 [facility] Comment on above: Performed By: #### C BC ####[facility] [address]zzjtvfapb02[address] [place], [place] [address]Dr. Antonella Medrano MANUAL DIFF REQ NO Normal [facility] Comment on above: Performed By: #### C BC ####[facility] Jljqawnoft[address] [place], [place] [address]Dr. Antonella Medrano MCH (RBC) [Entitic mass] 28.5 pg Normal 26.7-34.0 [facility] Comment on above: Performed By: #### C BC ####[facility] Wasjifcxbi4499 [place] [id number]. Antonella Medrano MCHC (RBC) [Mass/Vol] 33.3 g/dL Normal 29.9-35.2 [facility] Comment on above: Performed By: #### C BC ####[facility] S[address]ynwsyde4[address] [place] [id number]. Antonella Mitchell MCV (RBC) [Entitic vol] 85.7 fL Normal 81.0-99.0 [facility] Comment on above: Performed By: #### C BC ####[facility] [address] [place], [place] [address]Dr. Antonella Medrano MONO # 0.9 103/ul Critically high 0.3-0.8 [facility] Comment on above: Performed By: #### C BC ####[facility] Nufernanrx40[address] [place], [place] [address]Dr. Antonella Medrano Monocytes/100 WBC (Bld) 8.5 % Normal 1.7-12.0 [facility] Comment on above: Performed By: #### C BC ####[facility] Txqludfqrc[address] [place], [place] [address]Dr. Antonella Medrano NEUT # 7.0 103/ul Critically high 1.4-6.5 [facility] Comment on above: Performed By: #### C BC ####[facility] Rbdodwtptx[address] [place], [place] [address]Dr. Antonella Medrano Neutrophils/100 WBC (Bld) 67.1 % Normal 43.0-75.0 [facility] Comment on above: Performed By: #### C BC ####[facility] Smxneimkjj[address] [place], [place] [address]Dr. Antonella Medrano Platelet mean volume (Bld) [Entitic vol] 11.3 fL Normal 9.5-13.5 [facility] Comment on above: Performed By: #### C BC ####[facility] Ytcvwjp[address] [place], [place] [address]Dr. Antonella Medrano PLT 279 103/ul Normal 150-450 [facility] Comment on above: Performed By: #### C BC ####[facility] Pbjwcdvuho1109 [place], [place] [address]Gl. Antonella Medrano RBC 6.03 106/ul Critically high 4.20-5.40 [facility] Comment on above: Performed By: #### C BC ####[facility] Hgtttktenr7888 [place], [place] [address]Cu. Antonella Medrano WBC 10.4 103/ul Normal 4.0-11.0 [facility] Comment on above: Performed By: #### C BC ####[facility] K[address]rjoomezt[address] [place], [place] [address]Je. Antonella Medrano CT HEAD WO CONon 02-16-2022 CT HEAD WO CON Normal [facility] CULTURE URINEon 02-16-2022 CULTURE URINE Culture Observations : LIGHT GROWTH OF MIXED GENITAL LCUY. NO POTENTIAL PATHOGENS SEEN. Normal [facility] Comment on above: Performed By: #### U RCX ####[facility] Zuxxkdybfo15[address] [place], [place] [address]Hr. Antonella Medrano Covid-19 PCR (CVDTBH)on 01-22 SARS-CoV-2 (COVID-19) RNA TAISHA+probe Ql (Unsp spec) Not detected Normal NOT DETECTED [facility] Comment on above: Result Comment: When [...] for this test is supported by the Executive Director [employer] of Health and Human Service's declaration that [...] be used). Performed By: #### C VDTBH ####[facility] [address]qvwuyxr[address] [place], [place] [address]Dr. Antonella Medrano ER URINE PROFILEon 2 Bilirubin Ql (U) Negative Normal NEGATIVE [facility] Comment on above: Performed By: #### U MICRO, ERUR ####[facility] Brfwsvhfyw[address] [place], [place] [address]Dr. Antonella Medrano Clarity (U) CLEAR Normal CLEAR [facility] Comment on above: Performed By: #### U MICRO, ERUR ####[facility] [address]zpgbqsa[address] [place], [place] [address]Dr. Antonella Medrano Color (U) YELLOW Normal YELLOW [facility] Comment on above: Performed By: #### U MICRO, ERUR ####[facility] [address]eklbgzmb[address] [place], [place] [address]Dr. Antonella Medrano ERUAHD A micrscopic examina tion will be performed if indicated. Normal [facility] Comment on above: Performed By: #### U MICRO, ERUR ####[facility] [address]ds[address]qmmh[address] [place], [place] [address]Dr. Antonella Medrano Glucose Ql (U) >1000 Abnormal NEGATIVE [facility] Comment on above: Performed By: #### U MICRO, ERUR ####[facility] [address]fbxkbyiip[address] [place], [place] [address]Dr. Antonella Medrano Hemoglobin Ql (U) SMALL Abnormal NEGATIVE [facility] Comment on above: Performed By: #### U MICRO, ERUR ####[facility] Wpksozguyf[address] [place], [place] [address]Dr. Antonella Medrano Ketones Ql (U) Negative Normal NEGATIVE [facility] Comment on above: Performed By: #### U MICRO, ERUR ####[facility] Wyapmakuof[address] [place], [place] [address]Dr. Antonella Medrano LEUKOCYTES SMALL Abnormal NEGATIVE [facility] Comment on above: Performed By: #### U MICRO, ERUR ####[facility] Jsitqnkqtr77[address] [place], [place] [address]Dr. Antonella Medrano Nitrite Ql (U) Negative Normal NEGATIVE [facility] Comment on above: Performed By: #### U MICRO, ERUR ####[facility] Mzihvegfqd[address] [place] [address]Dr. Antonella Medrano pH (U) 5.5 [pH] Normal 5-9 [facility] Comment on above: Performed By: #### U MICRO, ERUR ####[facility] Qlczldxqud19[address] [place], [place] [address]Dr. Antonella Medrano Protein (U) [Mass/Vol] 100 mg/dL Abnormal NEGAT LAZ/ TRACE [facility] Comment on above: Performed By: #### U MICRO, ERUR ####[facility] Vtddjexlvn9[address] [place], [place] [address]Dr. Antonella Medrano SPEC GRAVITY 1.025 Normal 1.005-<=1.0 25 [facility] Comment on above: Performed By: #### U MICRO, ERUR ####[facility] Erpulhalub8[address] [place], [place] [address]Dr. Antonella Medrano UR MICRO IND INDICATED Normal [facility] Comment on above: Performed By: #### U MICRO, ERUR ####[facility] Ufizyvndzs[address] [place], [place] [address]Dr. Antonella Medrano Urobilinogen Qn (U) 0.2 {Oleg'U}/dL Normal 0.2 - 1. 0 [facility] Comment on above: Performed By: #### U MICRO, ERUR ####[facility] Bhnewjmnns[address] [place], [place] [address]Dr. Antonella Medrano LACTATE/LACTIC ACIDon 2021 Lactate [Moles/Vol] 2.5 mmol/L Critically high 0.4-1.9 [facility] Comment on above: Performed By: #### L ACT ####[facility] Xmoodqcewi[address] [place], [place] [address]Dr. Antonella Medrano Lactate [Moles/Vol] 1.2 mmol/L Normal 0.4-1.9 [facility] Comment on above: Performed By: #### L ACT ####[facility] Qtfdviddpm[address] [place], [place] [address]Dr. Antonella Medrano POINT OF CARE GLUCOSEon 01-22 Glucose [Mass/Vol] 103 mg/dL Normal 74-106 [facility] Comment on above: Performed By: #### P OCGLUC ####[facility] Ktkwifuyrx35[address] [place] [address]Dr. Antonella Mitchell Glucose [Mass/Vol] 254 mg/dL Critically high 74-106 [facility] Comment on above: Performed By: #### P OCGLUC ####[facility] Kfvsmoqhmj6403 [place] [address]Dr. Antonella Medrano Glucose [Mass/Vol] 356 mg/dL Critically high 74-106 [facility] Comment on above: Performed By: #### P OCGLUC ####[facility] Rhhtxwpfza6896 [place] [address]Dr. Mariafilemon Mitchell Glucose [Mass/Vol] 308 mg/dL Critically high 74-106 [facility] Comment on above: Performed By: #### P OCGLUC ####[facility] Jxpazmbvuh0023 [place] [address]Dr. Antonella Medrano PROF 14(COMP METB)on 022 Albumin [Mass/Vol] 3.0 g/dL Critically low 3.4-5.0 [facility] Comment on above: Performed By: #### C MP ####[facility] Xuzsasuwtu[address] [place] [address]Dr. Antonella Medrano Albumin/Globulin [Mass ratio] 0.8 {ratio} Normal [facility] Comment on above: Performed By: #### C MP ####[facility] Iytdbdavdm6037 [place] [address]Dr. Antonella Medrano ALP [Catalytic activity/Vol] 109 U/L Normal 46-116 [facility] Comment on above: Performed By: #### C MP ####[facility] Dqjutzjwpk68[address] [place] [address]Dr. Antonella Medrano ALT [Catalytic activity/Vol] 18 U/L Normal 14-59 [facility] Comment on above: Performed By: #### C MP ####[facility] Vykjbhhbgx5254 [place] [address]Dr. Antonella Medrano Anion gap [Moles/Vol] 14.5 mmol/L Normal Th e [facility] Comment on above: Performed By: #### C MP ####[facility] Ldslrjgayn2317 [place] [address]Dr. Antonella Medrano AST [Catalytic activity/Vol] 11 U/L Critically low 15-37 [facility] Comment on above: Performed By: #### C MP ####[facility] Zzefnhkdll[address] [place], [place] [address]Dr. Antonella Mitchell Bilirubin [Mass/Vol] 0.3 mg/dL Normal 0.2-1.0 [facility] Comment on above: Performed By: #### C MP ####[facility] Qvsbslmcgk56[address] [place], [place] [address]Dr. Antonella Mitchell Calcium [Mass/Vol] 9.2 mg/dL Normal 8.5-10.1 [facility] Comment on above: Performed By: #### C MP ####[facility] Raojmjxzov1925[address] [place], [place] [address]Dr. Mariafilemon Medrano Chloride [Moles/Vol] 99 mmol/L Normal 98-107 [facility] Comment on above: Performed By: #### C MP ####[facility] Tmjojnekor[address] [place], [place] [address]Dr. Antonella Mitchell CO2 [Moles/Vol] 25.5 mmol/L Normal 21.0-32.0 [facility] Comment on above: Performed By: #### C MP ####[facility] Iwwyrrtiqo[address] [place], [place] [address]Dr. Antonella Mitchell Creatinine [Mass/Vol] 1.57 mg/dL Critically high 0.55-1.02 [facility] Comment on above: Performed By: #### C MP ####[facility] Qrajmxbujb1805[address] [place], [place] [address]Dr. Antonella Medrano EGFR-AF IVORIAN 40 mL/min/1.73m2 Critically low >=60 [facility] Comment on above: Performed By: #### C MP ####[facility] Bwigdxytim24[address] [place], [place] [address]Dr. Antonella Medrano EGFR-NON AF IVORIAN 33 mL/min/1.73m2 Critically low >=60 [facility] Comment on above: Performed By: #### C MP ####[facility] Pjddjjmwgk3625 [place] [address]Dr. Mariafilemon Mitchell Globulin (S) [Mass/Vol] 3.9 g/dL Normal [facility] Comment on above: Performed By: #### C MP ####[facility] Nkatfyzpbv0422 [place] [address]Dr. Antonella Medrano Glucose [Mass/Vol] 99 mg/dL Normal 74-106 [facility] Comment on above: Performed By: #### C MP ####[facility] Bczlsluigo[address] [place], [place] [address]Dr. Antonella Medrano Potassium [Moles/Vol] 4.0 mmol/L Normal 3.5-5.1 [facility] Comment on above: Performed By: #### C MP ####[facility] Mmybjxsaqm[address] [place], [place] [address]Dr. Antonella Medrano Protein [Mass/Vol] 6.9 g/dL Normal 6.4-8.2 [facility] Comment on above: Performed By: #### C MP ####[facility] Qoaauviaby[address] [place], [place] [address]Dr. Antonella Medrano Sodium [Moles/Vol] 135 mmol/L Critically low 136-145 [facility] Comment on above: Performed By: #### C MP ####[facility] Qvkzfcwhyk85[address] [place], [place] [address]Dr. Antonella Medrano Urea nitrogen [Mass/Vol] 35.0 mg/dL Critically high 7.0-18.0 [facility] Comment on above: Performed By: #### C MP ####[facility] Llkiquctzp6[address] [place], [place] [address]Dr. Antonella Medrano Urea nitrogen/Creatinine [Mass ratio] 22.3 mg/mg Normal [facility] Comment on above: Performed By: #### C MP ####[facility] Ajmdkqcqrm[address] [place], [place] [address]Dr. Antonella Medrano URINE MICROSCOPIC ONLYon BACTERIA TRACE Abnormal NONE SEEN [facility] Comment on above: Performed By: #### U MICRO, ERUR ####[facility] Tpenuauqxz[address] [place] [address]Dr. Antonella Medrano Bacteria identified Cx Nom (U) INDICATED Normal [facility] Comment on above: Performed By: #### U MICRO, ERUR ####[facility] Nlzupnzhjy112[address] [place] [address]Dr. Antonella Medrano CAST SEEN Abnormal NONE SEEN [facility] Comment on above: Performed By: #### U MICRO, ERUR ####[facility] Zesrurazcf83[address] [place] [address]Dr. Antonella Medrano Crystals LM Nom (Urine sed) NONE SEEN Normal NONE SEEN [facility] Comment on above: Performed By: #### U MICRO, ERUR ####[facility] Uociaierxx15[address] [place] [address]Dr. Antonella Medrano Epithelial cells LM Ql (Urine sed) RARE Normal NONE SEEN /RARE [facility] Comment on above: Performed By: #### U MICRO, ERUR ####[facility] Kmgggrgprc[address] [place] [address]Dr. Antonella Medrano MUCOUS NONE SEEN Normal NONE SEEN [facility] Comment on above: Performed By: #### U MICRO, ERUR ####[facility] Qffzpgeaan3194 [place] [address]Dr. Antonella Medrano RBC 0-2 Normal 0-2 [facility] Comment on above: Performed By: #### U MICRO, ERUR ####[facility] Oayamyonrd65[address] [place] [address]Dr. Antonella Medrano WBC 20-50 Abnormal NONE SEEN [facility] Comment on above: Performed By: #### U MICRO, ERUR ####[facility] Xyomuljzxz7[address] [place] [address]Dr. Antonella Medrano XR CHEST 1 Von 02-16-2022 XR CHEST 1 V Normal [facility] Complete Blood Counton 02-15 Erythrocyte distribution width (RBC) [Ratio] 12.4 % Normal 11.0-15.0 [place] [employer] Comment on above: Performed By: #### C BC, CMP #### [facility] [address], [place] [id number] Hematocrit (Bld) [Volume fraction] 50.9 % High 35.0-47.0 [facility] Comment on above: Performed By: #### C BC, CMP #### [facility] [address], [place] [id number] Hemoglobin (Bld) [Mass/Vol] 17.2 g/dL High 11.6-15.5 [facility] Specialist Comment on above: Performed By: #### C BC, CMP #### [facility] [address], [place] [id number] MCH (RBC) [Entitic mass] 28.6 pg Normal 27.0-33.0 [facility] Specialist Comment on above: Performed By: #### C BC, CMP #### [facility] [address], [place] [id number] MCHC (RBC) [Mass/Vol] 33.8 g/dL Normal 32.0-36.0 [facility] Comment on above: Performed By: #### C BC, CMP #### [facility] [address], [place] [id number] MCV (RBC) [Entitic vol] 85 fL Normal 80-100 [facility] Specialist Comment on above: Performed By: #### C BC, CMP #### [facility] [address], [place] [id number] Platelet mean volume (Bld) [Entitic vol] 11.60 fL Normal 7.50-12.50 [facility] Comment on above: Performed By: #### C BC, CMP #### [facility] [address], [place] [id number] Platelets (Bld) [#/Vol] 273 10*3/uL Normal 140-400 [facility] [employer] [facility] Comment on above: Performed By: #### C BC, CMP #### [facility] [address], [place] [id number] RBC (Bld) [#/Vol] 6.01 10*6/uL High 3.90-5.20 [place] [facility] Comment on above: Performed By: #### C BC, CMP #### [facility] [address], [place] [id number] RDW-SD 37.6 fL Normal 37.0-50.0 [facility] Specialist Comment on above: Performed By: #### C BC, CMP #### [facility] [address], [place] [id number] WBC (Bld) [#/Vol] 9.0 10*3/uL Normal 3.8-11.0 [facility] [employer] [facility] Comment on above: Performed By: #### C BC, CMP #### [facility] [address], [place] [id number] Comprehensive Metabolic Pane [facility] 02-15-2022 Albumin [Mass/Vol] 3.9 g/dL Normal 3.6-5.1 [facility] Comment on above: Performed By: #### C BC, CMP #### [facility] [address], [place] [id number] Albumin/Globulin [Mass ratio] 1.3 {ratio} Normal 1.0-2.5 [facility] Comment on above: Performed By: #### C BC, CMP #### [facility] [address], [place] [id number] ALP [Catalytic activity/Vol] 141 U/L High 35-119 [facility] Specialist Comment on above: Performed By: #### C BC, CMP #### [facility] [address], [place] [id number] ALT [Catalytic activity/Vol] 11 U/L Normal 6-33 [facility] Specialist Comment on above: Result Comment: 08/23 Female reference range changed. Performed By: #### C BC, CMP #### [facility] [address], [place] [id number] Anion gap [Moles/Vol] 19 mmol/L Normal 12-20 [facility] Specialist Comment on above: Result Comment: Effe ctive 09/28/2019 reference range changed. Performed By: #### C BC, CMP #### [facility] [address], [place] [id number] AST [Catalytic activity/Vol] 12 U/L Normal 9-34 [facility] Comment on above: Performed By: #### C BC, CMP #### [facility] [address], [place] [id number] Bilirubin [Mass/Vol] 0.32 mg/dL Normal 0.30-1.20 [facility] Comment on above: Performed By: #### C BC, CMP #### [facility] [address], [place] [id number] BUN/CREA 23 Ratio High 6-22 [facility] Comment on above: Performed By: #### C BC, CMP #### [facility] [address], [place] [id number] Calcium [Mass/Vol] 9.9 mg/dL Normal 8.6-10.2 [facility] Comment on above: Performed By: #### C BC, CMP #### [facility] [address], [place] [id number] Chloride [Moles/Vol] 95 mmol/L Low 98-107 [facility] Comment on above: Performed By: #### C BC, CMP #### [facility] [address], [place] [id number] CO2 [Moles/Vol] 21 mmol/L Normal 20-31 [facility] Comment on above: Performed By: #### C BC, CMP #### [facility] [address] [facility] [place] [id number] Creatinine [Mass/Vol] 1.3 mg/dL Normal 0.6-1.4 [facility] Comment on above: Performed By: #### C BC, CMP #### [facility] [address] [facility] [place] [id number] eGFRAA 51 mL/min/1.73m2 Low >60 [facility] Comment on above: Performed By: #### C BC, CMP #### [facility] [address] [facility] [place] [id number] eGFRNAA 42 mL/min/1.73m2 Low >60 [facility] Comment on above: Performed By: #### C BC, CMP #### [facility] [address], [place] [id number] Globulin (S) [Mass/Vol] 3.0 g/dL Normal 1.9-3.7 [facility] Specialist Comment on above: Performed By: #### C BC, CMP #### [facility] [address], [place] [id number] Glucose [Mass/Vol] 366 mg/dL High 65-99 [facility] Specialist Comment on above: Result Comment: For FASTING Glucose --- ADA reference ranges: Normal 65-99 mg/dl Prediabetes 100-125 Diabetes >/= 126 Performed By: #### C BC, CMP #### [facility] [address], [place] [id number] Potassium [Moles/Vol] 4.7 mmol/L Normal 3.5-5.5 [facility] Comment on above: Performed By: #### C BC, CMP #### [facility] [address], [place] [id number] Protein [Mass/Vol] 6.9 g/dL Normal 6.1-8.1 [facility] Specialist Comment on above: Performed By: #### C BC, CMP #### [facility] [address], [place] [id number] Sodium [Moles/Vol] 131 mmol/L Low 135-146 [facility] Specialist Comment on above: Performed By: #### C BC, CMP #### [facility] [address], [place] [id number] Urea nitrogen [Mass/Vol] 30 mg/dL High 7-25 [facility] Specialist Comment on above: Performed By: #### C BC, CMP #### [facility] [address], [place] [id number] CBC AUTO DIFFon 02-01-2022 BASO # 0.0 103/ul Normal 0.0-0.1 [facility] Comment on above: Performed By: #### C BC ####[facility] Qiufuw[address]msz1749 [place], [place] [address]Lo. Yilan Medrano Basophils/100 WBC (Bld) 0.3 % Normal 0.2-2.0 [facility] Comment on above: Performed By: #### C BC ####[facility] Rnhhyphsgs35[address] [place] [address]Dr. Antonella Medrano EO # 0.2 103/ul Normal 0.0-0.7 [facility] Comment on above: Performed By: #### C BC ####[facility] Ccldsuwvth6922 [place] [address]Dr. Antonella Medrano Eosinophils/100 WBC (Bld) 1.9 % Normal 0.9-7.0 [facility] Comment on above: Performed By: #### C BC ####[facility] Lqnvbavhsh[address] [place], [place] [address]Dr. Antonella Medrano Erythrocyte distribution width (RBC) [Ratio] 12.6 % Normal 11.0-15.0 [facility] Comment on above: Performed By: #### C BC ####[facility] Azfsdypjmt[address] [place], [place] [address]Dr. Antonella Medrano Hematocrit (Bld) [Volume fraction] 49.6 % Critically high 36.0-48.0 [facility] Comment on above: Performed By: #### C BC ####[facility] Fyebrhibul[address] [place], [place] [address]Dr. Antonella Medrano Hemoglobin (Bld) [Mass/Vol] 16.6 g/dL Critically high 12.0-16.0 [facility] Comment on above: Performed By: #### C BC ####[facility] Qrtmltytmb[address] [place], [place] [address]Dr. Antonella Medrano IG # 0.04 10e3/ul Critically high 0.00-0.03 [facility] Comment on above: Performed By: #### C BC ####[facility] Ymrdkbeakm[address] [place], [place] [address]Dr. Antonella Medrano IG % 0.4 % Normal 0.0-0.5 [facility] Comment on above: Performed By: #### C BC ####[facility] Ugfinatgea[address] [place], [place] [address]Dr. Antonella Medrano LYMPH # 2.4 103/ul Normal 1.2-3.8 [facility] Comment on above: Performed By: #### C BC ####[facility] Pifqmighms1879 [place] [address]Dr. Antonella Medrano Lymphocytes/100 WBC (Bld) 25.9 % Normal 20.5-60.0 [facility] Comment on above: Performed By: #### C BC ####[facility] Jlltekrivu6662 [place] [address]Dr. Mariafilemon Medrano MANUAL DIFF REQ NO Normal [facility] Comment on above: Performed By: #### C BC ####[facility] Yxlisunmuz[address] [place], [place] [address]Dr. Antonella Mitchell MCH (RBC) [Entitic mass] 28.7 pg Normal 26.7-34.0 [facility] Comment on above: Performed By: #### C BC ####[facility] Ofdvxgmgpx864[address] [place], [place] [address]Dr. Antonella Mitchell MCHC (RBC) [Mass/Vol] 33.5 g/dL Normal 29.9-35.2 [facility] Comment on above: Performed By: #### C BC ####[facility] Zyjzcetrjy[address] [place], [place] [address]Dr. Antonella Mitchell MCV (RBC) [Entitic vol] 85.8 fL Normal 81.0-99.0 [facility] Comment on above: Performed By: #### C BC ####[facility] Apzxyhnieo[address] [place], [place] [address]Dr. Antonella Mitchell MONO # 0.7 103/ul Normal 0.3-0.8 [facility] Comment on above: Performed By: #### C BC ####[facility] Gapiubkgcr[address] [place], [place] [address]Dr. Mariafilemon Medrano Monocytes/100 WBC (Bld) 7.9 % Normal 1.7-12.0 [facility] Comment on above: Performed By: #### C BC ####[facility] Glxxscjbnt[address] [place], [place] [address]Dr. Antonella Medrano NEUT # 5.8 103/ul Normal 1.4-6.5 [facility] Comment on above: Performed By: #### C BC ####[facility] Tivknuneum9007 [place] [address]Dr. Antonella Medrano Neutrophils/100 WBC (Bld) 63.6 % Normal 43.0-75.0 [facility] Comment on above: Performed By: #### C BC ####[facility] Jckhqektgq3409 [place] [address]Dr. Antonella Medrano Platelet mean volume (Bld) [Entitic vol] 12.3 fL Normal 9.5-13.5 [facility] Comment on above: Performed By: #### C BC ####[facility] Bqaisqogcu2363 [place] [address]Dr. Antonella Medrano PLT 212 103/ul Normal 150-450 [facility] Comment on above: Performed By: #### C BC ####[facility] Rkawpcezbf4255 [place] [address]Dr. Antonella Medrano RBC 5.78 106/ul Critically high 4.20-5.40 [facility] Comment on above: Performed By: #### C BC ####[facility] Hzvjjmcudp8[address] [place], [place] [address]Dr. Antonella Medrano WBC 9.1 103/ul Normal 4.0-11.0 [facility] Comment on above: Performed By: #### C BC ####[facility] Ixtvtfuzzy[address] [place], [place] [address]Dr. Antonella Medrano CULTURE URINEon 02-01-2022 CULTURE URINE Culture Observations : LIGHT GROWTH OF MIXED SKIN LUCY. NO POTENTIAL PATHOGENS SEEN. Normal [facility] Comment on above: Performed By: #### U RCX ####[facility] Ccudmqkalz[address] [place], [place] [address]Dr. Antonella Medrano ER URINE PROFILEon 2 Bilirubin Ql (U) Negative Normal NEGATIVE [facility] Comment on above: Performed By: #### LATA CLARKRO ####[facility] Igzaaorzkm8944 [place] [address]Dr. Antonella Mitchell Clarity (U) CLEAR Normal CLEAR [facility] Comment on above: Performed By: #### E RUR, UMICRO ####[facility] Bjsekpcjay3319 [place] [address]Dr. Antonella Medrano Color (U) LT. YELLOW Normal YELLOW [facility] Comment on above: Performed By: #### LATA CLARKRO ####[facility] Xtbakvklkm6103 [place] [address]Dr. Antonella Medrano ERUAHD A micrscopic examina tion will be performed if indicated. Normal [facility] Comment on above: Performed By: #### Daniela LEE UMICRO ####[facility] Cmkzamagov4[address] [place], [place] [address]Dr. Antonella Medrano Glucose Ql (U) 1000 mg/dl Abnormal NEGATIVE [facility] Comment on above: Performed By: #### Danieal LEE UMICRO ####[facility] Bjjetpwcdg1874[address] [place], [place] [address]Dr. Antonella Medrano Hemoglobin Ql (U) SMALL Abnormal NEGATIVE [facility] Comment on above: Performed By: #### Daniela LEE ICRO ####[facility] Qzqtwvqmgj14[address] [place], [place] [address]Dr. Antonella Medrano Ketones Ql (U) Negative Normal NEGATIVE [facility] Comment on above: Performed By: #### LAAT CLARKRO ####[facility] Mvcghxryij[address] [place], [place] [address]Dr. Antonella Medrano LEUKOCYTES TRACE Abnormal NEGATIVE [facility] Comment on above: Performed By: #### HEAVENLY CLARKICRO ####[facility] Rmynbuaqnw[address] [place], [place] [address]Dr. Antonella Medrano Nitrite Ql (U) Negative Normal NEGATIVE [facility] Comment on above: Performed By: #### LATA CLARKRO ####[facility] Elticujnfz12[address] [place], [place] [address]Dr. Antonella Medrano pH (U) 5.5 [pH] Normal 5-9 [facility] Comment on above: Performed By: #### LATA CLARKRO ####[facility] Axsgyatvyv8[address] [place], [place] [address]Dr. Antonella Medrano Protein (U) [Mass/Vol] 30 mg/dL Abnormal NEGAT LAZ/ TRACE [facility] Comment on above: Performed By: #### HALEY CLARK ####[facility] Rw[address] [place] [address]Dr. Antonella Medrano SPEC GRAVITY 1.015 Normal 1.005-<=1.0 25 [facility] Comment on above: Performed By: #### HALEY CLARK ####[facility] Hhexlmxesm[address] [place] [address]Dr. Antonella Medrano UR MICRO IND INDICATED Normal [facility] Comment on above: Performed By: #### HALEY CLARK ####[facility] Qbikyvbfdg56[address] [place] [address]Dr. Antonella Medrano Urobilinogen Qn (U) 0.2 {Oleg'U}/dL Normal 0.2 - 1. 0 [facility] Comment on above: Performed By: #### HALEY CLARK ####[facility] Ekkgrucxss[address] [place], [place] [address]Dr. Antonella Medrano POINT OF CARE GLUCOSEon 01-21 Glucose [Mass/Vol] 503 mg/dL Critically high [address] [place] [address] Comment on above: Result Comment: Resu lt Not Confirmed Performed By: #### P OCGLUC ####[facility] Plqlfggnfe[address] [place] [address]Dr. Antonella Medrano Glucose [Mass/Vol] 352 mg/dL Critically high -106 [facility] Comment on above: Performed By: #### P OCGLUC ####[facility] Hlkvfpvrct6206 [place] [address]Dr. Antonella Medrano Glucose [Mass/Vol] 285 mg/dL Critically high [facility]106 [facility] Comment on above: Performed By: #### P OCGLUC ####[facility] Cenxlzbmul8[address] [place] [address]Dr. Antonella Medrano PROF 14(COMP METB)on 022 Albumin [Mass/Vol] 3.2 g/dL Critically low 3.4-5.0 [facility] Comment on above: Performed By: #### C MP ####[facility] Cetzwzzlqf56[address] [place] [address]Dr. Antonella Medrano Albumin/Globulin [Mass ratio] 0.7 {ratio} Normal [facility] Comment on above: Performed By: #### C MP ####[facility] Ptbubqjdvd2545 [place] [address]Dr. Antonella Medrano ALP [Catalytic activity/Vol] 128 U/L Critically high 46-116 [facility] Comment on above: Performed By: #### C MP ####[facility] Pysbdwcxxb[address] [place], [place] [address]Dr. Antonella Medrano ALT [Catalytic activity/Vol] 16 U/L Normal 14-59 [facility] Comment on above: Performed By: #### C MP ####[facility] Lgumqkuuoc[address] [place], [place] [address]Dr. Antonella Medrano Anion gap [Moles/Vol] 14.3 mmol/L Normal [facility] Comment on above: Performed By: #### C MP ####[facility] Silixepwgg[address] [place], [place] [address]Dr. Mariafilemon Medrano AST [Catalytic activity/Vol] 20 U/L Normal 15-37 [facility] Comment on above: Performed By: #### C MP ####[facility] Mknlitnshc[address] [place], [place] [address]Dr. Antonella Medrano Bilirubin [Mass/Vol] 0.6 mg/dL Normal 0.2-1.0 [facility] Comment on above: Performed By: #### C MP ####[facility] Hvta[address] [place], [place] [address]Dr. Antonella Medrano Calcium [Mass/Vol] 9.9 mg/dL Normal 8.5-10.1 [facility] Comment on above: Performed By: #### C MP ####[facility] Atlgaxyemi[address] [place], [place] [address]Dr. Antonella Medrano Chloride [Moles/Vol] 94 mmol/L Critically low 98-107 [facility] Comment on above: Performed By: #### C MP ####[facility] Wmjwyibdil8484 [place] [id number]. Antonella Medrano CO2 [Moles/Vol] 25.7 mmol/L Normal 21.0-32.0 [facility] Comment on above: Performed By: #### C MP ####[facility] Rrmpohkakt110[address] [place] [address]Dr. Antonella Medrano Creatinine [Mass/Vol] 1.00 mg/dL Normal 0.55-1.02 [facility] Comment on above: Performed By: #### C MP ####[facility] Ifwqbesujk37[address] [place] [id number]. Antonella Medrano EGFR-AF IVORIAN >60 Normal >=60 [facility] Comment on above: Performed By: #### C MP ####[facility] Kkqzqybzjr90[address] [place] [address]Dr. Antonella Medrano EGFR-NON AF IVORIAN 56 mL/min/1.73m2 Critically low >=60 [facility] Comment on above: Performed By: #### C MP ####[facility] Xoxfiavfgx7[address] [place] [address]Dr. Antonella Mitchell Globulin (S) [Mass/Vol] 4.4 g/dL Normal [facility] Comment on above: Performed By: #### C MP ####[facility] Xndafcnikh8457 [place] [address]Dr. Antonella Mitchell Glucose [Mass/Vol] 452 mg/dL Critically high 74-106 [facility] Comment on above: Performed By: #### C MP ####[facility] Fvvzunyywz0797 [place] [id number]. Antonella Medrano Potassium [Moles/Vol] 5.0 mmol/L Normal 3.5-5.1 [facility] Comment on above: Performed By: #### C MP ####[facility] Thdtvczffw0413 [place] [address]Dr. Mariafilemon Medrano Protein [Mass/Vol] 7.6 g/dL Normal 6.4-8.2 [facility] Comment on above: Performed By: #### C MP ####[facility] Zzbczxgoxu1474 [place] [address]Dr. Antonella Medrano Sodium [Moles/Vol] 129 mmol/L Critically low 136-145 [facility] Comment on above: Performed By: #### C MP ####[facility] Mccrqxvnwi3013 [place] [address]Dr. Antonella Medrano Urea nitrogen [Mass/Vol] 45.0 mg/dL Critically high 7.0-18.0 [facility] Comment on above: Performed By: #### C MP ####[facility] [address]ivjqpb[address] [place], [place] [address]Dr. Antonella Medrano Urea nitrogen/Creatinine [Mass ratio] 45.0 mg/mg Normal [facility] Comment on above: Performed By: #### C MP ####[facility] Uedufwhtfa[address] [place], [place] [address]Dr. Antonella Medrano URINE MICROSCOPIC ONLYon BACTERIA SMALL Abnormal NONE SEEN [facility] Comment on above: Performed By: #### LATA CLARKRO ####[facility] Gdfbxomgwj[address] [place], [place] [address]Dr. Antonella Medrano Bacteria identified Cx Nom (U) INDICATED Normal [facility] Comment on above: Performed By: #### LATA CLARKRO ####[facility] Rfnikbiwkr[address] [place], [place] [address]Dr. Antonella Medrano CAST NONE SEEN Normal NONE SEEN [facility] Comment on above: Performed By: #### LATA CLARKRO ####[facility] [address]ebxmjdolx[address] [place], [place] [address]Dr. Antonella Medrano Crystals LM Nom (Urine sed) NONE SEEN Normal NONE SEEN [facility] Comment on above: Performed By: #### LATA CLARKRO ####[facility] Juidciottl[address] [place], [place] [address]Dr. Antonella Medrano Epithelial cells LM Ql (Urine sed) FEW Abnormal NONE SEEN /RARE [facility] Comment on above: Performed By: #### LATA CLARKRO ####[facility] Boagtitalq3778 [place], [place] [address]Lz. Antonella Medrano MUCOUS NONE SEEN Normal NONE SEEN [facility] Comment on above: Performed By: #### HALEY CLARK ####[facility] Ibjkybvtco2689 [place], [place] [address]Hh. Antonella Medrano RBC 2-5 Abnormal 0-2 [facility] Comment on above: Performed By: #### HALEY CLARK ####[facility] Qsvlsqjwun1578 [place], [place] [address]Fk. Antonella Medrnao WBC 10-20 Abnormal NONE SEEN [facility] Comment on above: Performed By: #### HALEY CLARK ####[facility] Bkqqpehgvz6[address] [place] [id number]. Antonella Medrano Amylaseon 01-30-2022 ANGY 62 U/L Normal 28-100 [facility] [employer] Comment on above: Performed By: #### Raissa MCCABE, LIP #### [facility] [address] [place], [place] [id number] Complete Blood Counton 01-30 Erythrocyte distribution width (RBC) [Ratio] 12.5 % Normal 11.0-15.0 [facility] [employer] [facility] Comment on above: Performed By: #### C BC, CMP #### [facility] [address], [place] [id number] Hematocrit (Bld) [Volume fraction] 51.5 % High 35.0-47.0 [facility] Comment on above: Performed By: #### C BC, CMP #### [facility] [address], [place] [id number] Hemoglobin (Bld) [Mass/Vol] 17.4 g/dL High 11.6-15.5 [facility] Comment on above: Performed By: #### C BC, CMP #### [facility] [address], [place] [id number] MCH (RBC) [Entitic mass] 29.0 pg Normal 27.0-33.0 [facility] Comment on above: Performed By: #### C BC, CMP #### [facility] [address], [place] [id number] MCHC (RBC) [Mass/Vol] 33.8 g/dL Normal 32.0-36.0 [facility] Comment on above: Performed By: #### C BC, CMP #### [facility] [address], [place] [id number] MCV (RBC) [Entitic vol] 86 fL Normal 80-100 [facility] Specialist Comment on above: Performed By: #### C BC, CMP #### [facility] [address], [place] [id number] Platelet mean volume (Bld) [Entitic vol] 12.50 fL Normal 7.50-12.50 [facility] Comment on above: Performed By: #### C BC, CMP #### [facility] [address], [place] [id number] Platelets (Bld) [#/Vol] 227 10*3/uL Normal 140-400 [facility] Comment on above: Performed By: #### C BC, CMP #### [facility] [address], [place] [id number] RBC (Bld) [#/Vol] 6.00 10*6/uL High 3.90-5.20 [facility] Comment on above: Performed By: #### C BC, CMP #### [facility] [address], [place] [id number] RDW-SD 39.0 fL Normal 37.0-50.0 [facility] Specialist Comment on above: Performed By: #### C BC, CMP #### [facility] [address], [place] [id number] WBC (Bld) [#/Vol] 9.0 10*3/uL Normal 3.8-11.0 [facility] [employer] [facility] Comment on above: Performed By: #### C BC, CMP #### [facility] [address], [place] [id number] Comprehensive Metabolic Pane [facility] 01-30-2022 Albumin [Mass/Vol] 4.3 g/dL Normal 3.6-5.1 [facility] [employer] [facility] Comment on above: Performed By: #### C BC, CMP #### [facility] [address], [place] [id number] Albumin/Globulin [Mass ratio] 1.5 {ratio} Normal 1.0-2.5 [facility] Special[facility] Comment on above: Performed By: #### C BC, CMP #### [facility] [address], [place] [id number] ALP [Catalytic activity/Vol] 148 U/L High 35-119 [facility] Comment on above: Performed By: #### C BC, CMP #### [facility] [address], [place] [id number] ALT [Catalytic activity/Vol] 7 U/L Normal 6-33 [facility] Specialist Comment on above: Result Comment: 08/23 Female reference range changed. Performed By: #### C BC, CMP #### [facility] [address], [place] [id number] Anion gap [Moles/Vol] 23 mmol/L High 12-20 [facility] Comment on above: Result Comment: Effe ctive 09/28/2019 reference range changed. Performed By: #### C BC, CMP #### [facility] [address], [place] [id number] AST [Catalytic activity/Vol] 11 U/L Normal 9-34 [facility] Specialist Comment on above: Performed By: #### C BC, CMP #### [facility] [address], [place] [id number] Bilirubin [Mass/Vol] 0.36 mg/dL Normal 0.30-1.20 [facility] Comment on above: Performed By: #### C BC, CMP #### [facility] [address], [place] [id number] BUN/CREA 40 Ratio High 6-22 [facility] Comment on above: Performed By: #### C BC, CMP #### [facility] [address], [place] [id number] Calcium [Mass/Vol] 10.0 mg/dL Normal 8.6-10.2 [facility] Comment on above: Performed By: #### C BC, CMP #### [facility] [address], [place] [id number] Chloride [Moles/Vol] 92 mmol/L Low 98-107 [facility] Specialist Comment on above: Performed By: #### C BC, CMP #### [facility] [address], [place] [id number] CO2 [Moles/Vol] 21 mmol/L Normal 20-31 [facility] Comment on above: Performed By: #### C BC, CMP #### [facility] [address], [place] [id number] Creatinine [Mass/Vol] 0.9 mg/dL Normal 0.6-1.4 [facility] Comment on above: Performed By: #### C BC, CMP #### [facility] [address], [place] [id number] eGFRAA 73 mL/min/1.73m2 Normal >60 [facility] Specialist Comment on above: Performed By: #### C BC, CMP #### [facility] [address], [place] [id number] eGFRNAA 61 mL/min/1.73m2 Normal >60 [facility] Specialist Comment on above: Performed By: #### C BC, CMP #### [facility] [address], [place] [id number] Globulin (S) [Mass/Vol] 2.9 g/dL Normal 1.9-3.7 [facility] Specialist Comment on above: Performed By: #### C BC, CMP #### [facility] [address], [place] [id number] Glucose [Mass/Vol] 531 mg/dL Critically high 65-99 [facility] Specialist Comment on above: Result Comment: Crit ical result called to Abby Green at 01/30/2022 2:03 PM by Nicci Dailey (GLU) For FASTING Glucose --- ADA reference ranges: Normal 65-99 mg/dl Prediabetes 100-125 Diabetes >/= 126 Performed By: #### C BC, CMP #### [facility] [address], [place] [id number] Potassium [Moles/Vol] 5.6 mmol/L High 3.5-5.5 [facility] Specialist Comment on above: Result Comment: Spec imen is hemolyzed. Results may be affected. Performed By: #### C BC, CMP #### [facility] [address], [place] [id number] Protein [Mass/Vol] 7.2 g/dL Normal 6.1-8.1 [facility] Comment on above: Performed By: #### C BC, CMP #### [facility] [address], [place] [id number] Sodium [Moles/Vol] 130 mmol/L Low 135-146 [facility] Comment on above: Performed By: #### C BC, CMP #### [facility] [address], [place] [id number] Urea nitrogen [Mass/Vol] 37 mg/dL High 7-25 [facility] Specialist Comment on above: Performed By: #### C BC, CMP #### [facility] [address], [place] [id number] Hemoglobin A1Con 01-30-2022 EAG 274.74 Normal [facility] Specialist Comment on above: Performed By: #### A 1C #### [facility] [address], [place] [id number] HbA1c (Bld) [Mass fraction] 11.2 % High 4.0-6.0 [facility] Specialist Comment on above: Performed By: #### A 1C #### [facility] [address], [place] [id number] Lipaseon 01-30-2022 LIP2 147 IU/L High 13-60 [facility] Specialist Comment on above: Performed By: #### A MY, LIP #### [facility] [address], [place] [id number] Q - URINALYSIS,COMPLETEon Appearance (U) CLOUDY Abnormal CLEAR [facility] Specialist Comment on above: Order Comment: [facility] performed at: QPT, [facility], [address] [facility], [address] [place] [address], [place], [phone], Cellar Worker: Aung Boateng MD [facility] Date/Time: [facility] Results Received Date/Time: [facility] Reported Date/Time: Performed By: #### 3 4F #### [facility] Default [address] [place] [address] BACTERIA NONE SEEN Normal NONE SEEN [facility] Comment on above: Order Comment: [facility] performed at: Q, [facility], [address] , [address] [place] [address], [address] [place] [address], Cellar Worker: Aung Boateng MD [facility] Date/Time: [facility] Results Received Date/Time: [facility] Reported Date/Time: Performed By: #### 3 4F #### [facility] Default [address] [place] [address] Bilirubin Ql (U) Negative Normal NEGATIVE [facility] Comment on above: Order Comment: [facility] performed at: [facility], [facility], [address] , [address] [place] [address], [address] [place] [address], Cellar Worker: Aung Boateng MD [facility] Date/Time: [facility] Received Date/Time: [facility] Reported Date/Time: Performed By: #### 3 4F #### [facility] Default [address] [place] [address] Color (U) YELLOW Normal YELLOW [facility] Comment on above: Order Comment: [facility] performed at: [facility], [facility], [address] , [address] [place] [address], [address] [place] [address], Cellar Worker: Aung Boateng MD [facility] Date/Time: [facility] Received Date/Time: [facility] Reported Date/Time: Performed By: #### 3 4F #### [facility] Default [address] [place] [address] Glucose Ql (U) 3+ Abnormal NEGATIVE [facility] Comment on above: Order Comment: [facility] performed at: [facility], [employer] [facility], [address] , [address] [place] [address], [address] [place] [address], Cellar Worker: Aung Boateng MD [facility] Date/Time: [facility] Received Date/Time: [facility] Reported Date/Time: Performed By: #### 3 4F #### [facility] [address] [place] [address] HYALINE CAST NONE SEEN Normal NONE SEEN [facility] Comment on above: Order Comment: [facility] performed at: [employer], [employer] [facility], [address] [facility], [address] [place] [address], [address] [place] [address], Cellar Worker: Aung Boateng MD [facility] Date/Time: [facility] Received Date/Time: [facility] Reported Date/Time: Performed By: #### 3 4F #### [facility] [address] [place] [address] Ketones Ql (U) TRACE Abnormal NEGATIVE [facility] Comment on above: Order Comment: [facility] performed at: [employer], [employer], [address] , [address] [place] [address], [address] [place] [address], Cellar Worker: Aung Boateng MD [facility] Date/Time: [facility] Results Received Date/Time: [facility] Reported Date/Time: Performed By: #### 3 4F #### [facility] [address] [place] [address] Leukocyte esterase Test strip Ql (U) 1+ Abnormal NEGATIVE [facility] Comment on above: Order Comment: [facility] performed at: [facility], [employer] [facility], [address] , [address] [place] [address], [phone], Cellar Worker: Aung Boateng MD [facility] Date/Time: [facility] Results Received Date/Time: [facility] Reported Date/Time: Performed By: #### 3 4F #### [facility] [address] [place] [address] Nitrite Ql (U) Negative Normal NEGATIVE [facility] Comment on above: Order Comment: [facility] performed at: [place], [employer] [facility], [address] , [address] [place] [address], [phone], Cellar Worker: Aung Boateng MD [facility] Date/Time: [facility] Results Received Date/Time: [facility] Reported Date/Time: Performed By: #### 3 4F #### [facility] [address] [place] [address] OCCULT BLOOD 1+ Abnormal NEGATIVE [facility] Comment on above: Order Comment: [facility] performed at: [place], [employer] [facility], [address] [facility], [address] [place] [address], [phone], Cellar Worker: Aung Boateng MD [facility] Date/Time: [facility] Received Date/Time: [facility] Reported Date/Time: Performed By: #### 3 4F #### [facility] Default [address] [place] [address] pH (U) 5.5 [pH] Normal 5.0-8.0 [facility] Comment on above: Order Comment: [facility] performed at: [place], [employer] [facility], [address] , [address] [place] [address], [phone], Cellar Worker: Aung Boateng MD [facility] Date/Time: [facility] Received Date/Time: [facility] Reported Date/Time: Performed By: #### 3 4F #### [facility] [address] [place] [address] Protein Ql (U) 2+ Abnormal NEGATIVE [facility] Comment on above: Order Comment: [facility] performed at: [place], [employer] [facility], [address] , [address] [place] [address], [phone], Cellar Worker: Aung Boateng MD [facility] Date/Time: [facility] Results Received Date/Time: [facility] Reported Date/Time: Performed By: #### 3 4F #### [facility] [address] [place] [address] RBC 0-2 Normal < OR = 2 [facility] Comment on above: Order Comment: [facility] performed at: [facility], [employer] [facility], [address] [facility], [address] [place] [address], [address] [place] [address], Cellar Worker: Aung Boateng MD [facility] Date/Time: [facility] Received Date/Time: [facility] Reported Date/Time: Performed By: #### 3 4F #### [facility] Default [address] [place] [address] Specific gravity (U) [Rel density] 1.033 Normal 1.001-1.035 [facility] Comment on above: Order Comment: [facility] performed at: [facility], [employer] [facility], [address] [place] [address], [address] [place] [address], [address] [place] [address], Cellar Worker: Aung Boateng MD [facility] Date/Time: [facility] Received Date/Time: [facility] Reported Date/Time: Performed By: #### 3 4F #### [facility] [address] [place] [address] SQUAMOUS EPITHELIAL CELLS NONE SEEN Normal < OR = 5 [facility] Comment on above: Order Comment: [facility] performed at: [facility], [employer] [facility], [address] [place] [address], [address] [place] [address], [address] [place] [address], Cellar Worker: Aung Boateng MD [facility] Date/Time: [facility] Results Received Date/Time: [facility] Reported Date/Time: Performed By: #### 3 4F #### [facility] [address] [place] [address] TRANSITIONAL EPITHELIAL CELLS 0-5 Normal < OR = 5 [facility] Comment on above: Order Comment: [facility] performed at: [facility], [employer] [facility], [address] [facility], [address] [place], [place], [address] [place] [address], Cellar Worker: Aung Boateng MD [facility] Date/Time: [facility] Received Date/Time: [facility] Reported Date/Time: Performed By: #### 3 4F #### [facility] Default [address] [place] [address] WBC 10-20 Abnormal < OR = 5 [facility] Comment on above: Order Comment: [facility] performed at: [place], [employer] [facility], [address], [address] [place], [address] [place] [address], Cellar Worker: Aung Boateng MD [facility] Date/Time: [facility] Received Date/Time: [facility] Reported Date/Time: Performed By: #### 3 4F #### [facility] Default [address] [place] [address] YEAST MANY Abnormal NONE SEEN [facility] Comment on above: Order Comment: [facility] performed at: [place], [employer] [facility], [address] , [address] [place], [address] [place] [address], Cellar Worker: Aung Boateng MD [facility] Collection Date/Time: [facility] Results Received Date/Time: [facility] Reported Date/Time: Performed By: #### 3 4F #### [facility] Default [address] [place] [address] CONSULTATIONon 04-09-2017 CONSULTATION [facility] ATIENT NAME: KIARA BLANC : 57MED REC NO: [id number] ROOM: [id number] NO: [id number] ADMISSION DATE: 03/25/17PHYSICIAN: KAREN ROQUEHISTORY: The patient [...] seen in the office in two weeks.KAREN DanielaGerman ROQUED:04/09/2017 21:50:05 PH/Aliza_MIKE_TJob#: [id number] Doc#: [id number] [facility] Discharge Summaryon 03-27-20 17 HIM IP Note OR [employer] [facility] HIM IP Note OR [employer] [facility] Discharge Summaryon 03-26-20 17 HIM IP Note OR [employer] [facility] History and Physicalon 03-26 HIM IP Note OR [employer] Normal [facility] APTTon 03-25-2017 aPTT 22.4 s Low 23.2-34.4 [facility] Comment on above: Result Comment: Perf ormed at [address] [place] [address] [phone] Performed By: #### P T, PTT ####[address] [place] [address] CBC with Diffon 03-25-2017 Abs. Bands 0.10 k/uL Normal 0.0-1.0 [facility] Comment on above: Performed By: #### C P, CDP ####[address] [place] [address] Abs. Basophil 0.00 k/uL Normal 0.0-0.2 [facility] Comment on above: Performed By: #### C P, CDP ####[address] [place] [address] Abs.Neutrophil (Seg) 7.66 k/uL Normal 1.8-7.[address] [facility] Comment on above: Performed By: #### C P, CDP ####[address] [place] [address] Auto Diff Performed NOT REPORTED Normal [facility] Comment on above: Performed By: #### C P, CDP ####[address] , [facility]83 Bands 1 % Normal [facility] Comment on above: Performed By: #### C P, CDP ####[address] [place] [address] Basophils/100 WBC Auto (Bld) 0 % Normal [facility] Comment on above: Performed By: #### C P, CDP ####[address] [place] [address] Blood morphology Normal Normal [facility] Comment on above: Result Comment: Perf ormed at [address] [place] [address] Performed By: #### C P, CDP ####[address] [place] [address] Eosinophils 0.10 10*3/uL Normal 0.0-0.4 [facility] Comment on above: Performed By: #### C P, CDP ####[address] [place] [id number] Eosinophils/100 leukocytes 1 % Normal [facility] Comment on above: Performed By: #### C P, CDP ####[address] [place] [address] Erythrocyte distribution width Auto Ratio (RBC) 12.8 % Normal 12.1-15.2 [facility] Comment on above: Performed By: #### C P, CDP ####[address] [place] [address] Erythrocyte morphology NOT REPORTED Normal [facility] Comment on above: Performed By: #### C P, CDP ####[address] [place] [address] Erythrocytes (RBC) 4.45 10*6/uL Normal 4.0-5.[address] [facility] Comment on above: Performed By: #### C P, CDP ####[address] [place] [address] Hematocrit (HCT) 38.7 % Normal 36-46 [facility] Comment on above: Performed By: #### C P, CDP ####[address] [place] [address] Hemoglobin mass conc (Bld) 13.0 g/dL Normal 12.0-16.0 [facility] Comment on above: Performed By: #### C P, CDP ####[address] [place] [address] Lymphocytes 1.16 10*3/uL Normal 1.0-4.8 [facility] Comment on above: Performed By: #### C P, CDP ####[address] [place] [address] Lymphocytes/100 leukocytes 12 % Normal [facility] Comment on above: Performed By: #### C P, CDP ####[address] [place] [address] MCH 29.2 pg Normal 26-34 [facility] Comment on above: Performed By: #### C P, CDP ####[address] [place] [address] MCHC mass conc (RBC) 33.6 g/dL Normal 31-[address] [facility] Comment on above: Performed By: #### C P, CDP ####[address] [place] [address] MCV 86.8 fL Normal 80-100 [facility] Comment on above: Performed By: #### C P, CDP ####[address] [place] [address] Monocytes 0.68 10*3/uL Normal 0.0-1.0 [facility] Comment on above: Performed By: #### C P, CDP ####[address] [place] [address] Monocytes/100 leukocytes 7 % Normal [facility] Comment on above: Performed By: #### C P, CDP ####[address] , [facility]83 Neutrophil (Seg) 79 % Normal [facility] Comment on above: Performed By: #### C P, CDP ####[address] , [facility]83 Platelet mean volume (PMV) NOT REPORTED Normal 6.0-12.0 [facility] Comment on above: Performed By: #### C P, CDP ####[address] [place] [address] Platelets NOT REPORTED Normal [facility] Comment on above: Performed By: #### C P, CDP ####[address] [place] [address] Platelets 239 10*3/uL Normal 140-450 [facility] Comment on above: Performed By: #### C P, CDP ####[address] [place] [address] WBC (Leukocytes) 9.7 10*3/uL Normal 3.5-11.0 [facility] Comment on above: Performed By: #### C P, CDP ####[address] , [place] [address] WBC Morphology NOT REPORTED Normal [facility] Comment on above: Performed By: #### C P, CDP ####[address] [place] [address] Comp Metabolic Profon 2016 (cont.) Normal [facility] Comment on above: Result Comment: Aver age GFR for 60-69 years old: 85 mL/min/1.73sq mChronic Kidney Disease: <60 mL/min/1.73sq mKidney failure: <15 mL/min/1.73sq meGFR calculated using average adult body mass. Additional eGFR calculator available at:http://www.[employer]/multiple_crcl_2011.htm Performed By: #### C P, CDP ####[address] [place] [address] Alanine aminotransferase (ALT) 14 U/L Normal 5-33 [facility] Comment on above: Performed By: #### C P, CDP ####[address] [place] [address] Albumin 3.4 g/dL Low 3.5-5.2 [facility] Comment on above: Performed By: #### C P, CDP ####[address] [place] [address] Albumin/Globulin Ratio 1.2 {ratio} Normal 1.0-2.5 M [facility] Comment on above: Performed By: #### C P, CDP ####[address] [place] [address] Alkaline Phos 102 U/L Normal 35-104 [facility] Comment on above: Performed By: #### C P, CDP ####[address] [place] [address] Anion gap 13 mmol/L Normal 9-17 [facility] Comment on above: Performed By: #### C P, CDP ####[address] [place] [address] Aspartate aminotransferase (AST) 14 U/L Normal <32 [facility] Comment on above: Performed By: #### C P, CDP ####[address] [place] [address] Bilirubin Ql (U) 0.15 mg/dL Low 0.3-1.2 [facility] Comment on above: Performed By: #### C P, CDP ####[address] [place] [address] BUN/CRE Ratio 34 High 9-20 [facility] Comment on above: Performed By: #### C P, CDP ####[address] [place] [address] Calcium 8.3 mg/dL Low 8.6-10.4 [facility] Comment on above: Performed By: #### C P, CDP ####[address] [place] [address] Chloride 108 mmol/L High 98-107 [facility] Comment on above: Performed By: #### C P, CDP ####[address] [place] [address] CO2 18 mmol/L Low 20-31 [facility] Comment on above: Performed By: #### C P, CDP ####[address] [place] [address] Creatinine 0.64 mg/dL Normal 0.50-0.90 [facility] Comment on above: Performed By: #### C P, CDP ####[address] [place] [address] eGFR (non-black) mL/min/{1.73_m2} Normal >60 [facility] Comment on above: Performed By: #### C P, CDP ####[address] [place] [address] Glucose mass conc 368 mg/dL High 70-99 [facility] Comment on above: Performed By: #### C P, CDP ####[address] [place] [address] Potassium molar conc 4.7 mmol/L Normal 3.7-5.[address] [facility] Comment on above: Performed By: #### C P, CDP ####[address] [place] [address] Protein 6.3 g/dL Low 6.4-8.3 [facility] Comment on above: Performed By: #### C P, CDP ####[address] [place] [address] Sodium 139 mmol/L Normal 135-144 [facility] Comment on above: Performed By: #### C P, CDP ####[address] [place] [address] Staging: Normal [facility] Comment on above: Result Comment: Stag e 1: Some kidney damage normal GFRStage 2: Mild kidney damage GFR 60-89Stage 3: Moderate kidney damage GFR 30-59Stage 4: Severe kidney damage GFR 15-29Stage 5: Severe kidney damage GFR <15ESRD - chronic treatment by dialysis or transplantPerformed at [address] [place] [address] Performed By: #### C P, CDP ####[address] [place] [address] Urea nitrogen 22 mg/dL Normal 8-23 [facility] Comment on above: Performed By: #### C P, CDP ####[address] [place] [address] Hemoglobin A1Con 03-25-2017 Glucose mass conc 220 mg/dL Normal [facility] Comment on above: Result Comment: The ADA and AACC recommend providing the estimated average glucose result to permit better patient understanding of their HBA1c result.Performed at [address] [place] [id number] [phone]) Performed By: #### G LYHGB ####[address] [id number](205) Hemoglobin A1c/Hemoglobin.total mass fraction (Bld) 9.3 % High 4.8-5.9 [facility] Comment on above: Performed By: #### G LYHGB ####[address] [id number](285 PTon 03-25-2017 INR Coag RelTime (PPP) 0.9 {INR} Normal 0.9-1.2 [facility] Comment on above: Result Comment: Perf ormed at [address] [place] [address] (033) Performed By: #### P T, PTT ####[address] [phone] Prothrombin time (PT) Coag time (PPP) 9.7 s Normal 9.7-12.2 [facility] Comment on above: Performed By: #### P T, PTT ####[address] [id number]([phone]) Type + Screenon 03-25-2017 Type + Screen Sample Expiration 03/28/2017 Arm Band Number [id number] ABO/Rh(D) O POSITIVE Antibody Screen NEGATIVEPerformed at [address] [place] [id number] [phone] Normal [facility] Comment on above: Performed By: #### T YS ####[address] [phone](963) XR CHEST PORTABLEon 03-25-20 17 XR CHEST PORTABLE FINAL REPORTEXAM: XR CHEST PORTABLEHISTORY: preoperative; RT HIP FX TECHNIQUE: AP portable erect chest PRIORS: None.FINDINGS: The heart and vascularity are normal. Both lungs are well-expanded and there are no pulmonary infiltrates.The osseous structures are maintained. IMPRESSION: Impression: No acute cardiopulmonary disease. Interpreted by:MAISHA Lassietrigned by:Peter Escobar MD03/25/17Final result Normal [facility] XR HIP 2-3 VW W PELVIS RIGHT [...] fracture with minimal displacement. 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 Tobacco smoking status NHIS Unknown if ever smoked [facility] Assertion Lives with spous e (finding) [facility] Assertion Emotional stress (finding) [facility] Assertion Cigarette smoker (finding) [facility] Assertion Exposure to poll ution (event) [facility] Tobacco smoking status Unknown if ever smoked [facility] Work Phone: Assertion Gender identity finding (finding) [facility] Assertion Finding of sexua l orientation (finding) [facility] Assertion Currently not se xually active (finding) [facility] NEGATED: Highlighted row Assertion Current drinker of alcohol (finding) [facility] NEGATED: Highlighted row Assertion [facility] NEGATED: Highlighted row Assertion Finding relating to drug misuse behavior (finding) [facility] Vital Signs Date Time Vital Sign Value Performing Clinician Faci lity 07-18-2023 14:41-0400 Body height 165.1 cm Sonya Carlo ENTRY SPECIALIST Work Phone: [facility] Work Phone: 07-18-2023 14:41-0400 Body mass index (BMI) [Ratio] 31.5 kg/m2 Sonya Carlo ENTRY SPECIALIST Work Phone: [facility] Work Phone: 07-18-2023 14:41-0400 Body surface area Derived from formula 1.9 m2 Sonya Posada ENTRY SPECIALIST Work Phone: [facility] Work Phone: 07-18-2023 14:41-0400 Body temperature 97.9 [degF] Sonya Posada ENTRY SPECIALIST Work Phone: [facility] Work Phone: 07-18-2023 14:41-0400 Body weight 85.73 kg Sonya Posada ENTRY SPECIALIST Work Phone: [facility] Work Phone: 07-18-2023 14:41-0400 Diastolic blood pressure 60 mm[Hg] Sonya Srer ENTRY SPECIALIST Work Phone: [facility] Work Phone: 07-18-2023 14:41-0400 Heart rate 106 /min Sonya Srer ENTRY SPECIALIST Work Phone: [facility] Work Phone: 07-18-2023 14:41-0400 Respiratory rate 16 /min Sonya Srer ENTRY SPECIALIST Work Phone: [facility] Work Phone: 07-18-2023 14:41-0400 SaO2% (BldA) [Mass fraction] 92 % Sonya Srer ENTRY SPECIALIST Work Phone: [facility] Work Phone: 07-18-2023 14:41-0400 Systolic blood pressure 108 mm[Hg] Sonya Srer ENTRY SPECIALIST Work Phone: [facility] Work Phone: 03-11-2023 13:35-0400 Body temperature 97.11 [degF] Sonya Carlo METAL STUD FRAMER - PROGRAM DIRECTOR/MUSIC DIRECTOR Work Phone: [employer] 03-11-2023 13:35-0400 Diastolic blood pressure 60 mm[Hg] Sonya Carlo METAL STUD FRAMER - PROGRAM DIRECTOR/MUSIC DIRECTOR Work Phone: [facility] [employer] 03-11-2023 13:35-0400 Heart rate 92 /min Sonya Carlo METAL STUD FRAMER - PROGRAM DIRECTOR/MUSIC DIRECTOR Work Phone: [employer] 03-11-2023 13:35-0400 Respiratory rate 18 /min Sonya Carlo METAL STUD FRAMER - PROGRAM DIRECTOR/MUSIC DIRECTOR Work Phone: [facility] [employer] 03-11-2023 13:35-0400 SaO2% (BldA) [Mass fraction] 98 % Sonya Carlo METAL STUD FRAMER - PROGRAM DIRECTOR/MUSIC DIRECTOR Work Phone: [employer] 03-11-2023 13:35-0400 Systolic blood pressure 106 mm[Hg] Sonya Carlo METAL STUD FRAMER - PROGRAM DIRECTOR/MUSIC DIRECTOR [facility] Phone: [facility] 03-07-2023 15:37-0400 Body height 165.1 cm Sonya Posada ENTRY SPECIALIST Work Phone: [facility] Work Phone: 03-07-2023 15:37-0400 Body mass index (BMI) [Ratio] 33.4 kg/m2 Sonya Posada ENTRY SPECIALIST Work Phone: [facility] Work Phone: 03-07-2023 15:37-0400 Body surface area Derived from formula 2 m2 Sonya Posada ADRIEN Work Phone: [facility] Work Phone: 03-07-2023 15:37-0400 Body temperature 98.5 [degF] Sonya Posada ADRIEN Work Phone: [facility] Work Phone: 03-07-2023 15:37-0400 Body weight 91.17 kg Sonya Posada ENTRY SPECIALIST Work Phone: [facility] Work Phone: 03-07-2023 15:37-0400 Diastolic blood pressure 55 mm[Hg] Sonya Carlomarlen JURADO Work Phone: [facility] Work Phone: 03-07-2023 15:37-0400 Heart rate 64 /min Sonya Posada ENTRY SPECIALIST Work Phone: [facility] Work Phone: 03-07-2023 15:37-0400 SaO2% (BldA) [Mass fraction] 96 % Sonyajosee Posada ENTRY SPECIALIST Work Phone: [facility] Work Phone: 03-07-2023 15:37-0400 Systolic blood pressure 115 mm[Hg] Sonya Posada [facility] Work Phone: [facility] Work Phone: Mental Status Date Assessment Result Facility Cognitive function The estimated intelligence was normal Intelligence finding (finding) [facility] Work Phone: Clinical Notes 03-25-2022 to 07-18-2023 Note Date & Type Note Facility 07-18-2023 Instructions Includes: Instructions for all patient encounters Discussed nutritional needs teach healthy choices including fruits and vegetables Last Documented On 3 2:45PM ; [facility] Patient education about a pr oper diet Last Documented On 3 2:45PM ; [facility] Discussed concerns about exe rcise : promote physical activity Last Documented On 3 2:45PM ; [facility] Referred Patient to a Diabet es Self-Management Program Last Documented On 3 3:12PM ; [facility] introduced patient to [facility] integrated model of care. ~[facility] provided supportive and active listening, allowing patient the space to discuss concerns and explored with patient coping strategies and resources for support. Patient declines additional resources at this time but is aware to reach out to the office should she have questions or concerns. ~[facility] encouraged patient to continue addressing physical health needs and attend appointments as scheduled Last Documented On 3 9:52PM ; [facility] Discussed nutritional needs teach healthy choices including fruits and vegetables Last Documented On 3 3:42PM ; [facility] Patient education about a pr oper diet Last Documented On 3 3:42PM ; [facility] Discussed concerns about exe rcise : promote physical activity ~ ~Get labs done and follow up in two weeks Last Documented On 3 5:15AM ; [facility] Referred Patient to a Diabet es Self-Management Program Last Documented On 3 4:08PM ; [facility] Work Phone: [phone] 266-291910-26-2023 Evaluation note Includes: Assessments for all patient encounters Findings Encounter Date [Z68.31 - Body mass index [B NH] 31.0-31.9, adult] assessment of body mass index Medical Established Patient with Soco Alcantar ENTRY SPECIALIST 07/18/2023 Last Documented On 3 2:26PM ; [facility] Dependence on nicotine in ci garettes - uncomplicated Medical Established Patient with Soco Alcantar ENTRY SPECIALIST 07/18/2023 Last Documented On 3 2:26PM ; [facility] Essential hypertension Medical Establish ed Patient with Soco Alcantar ENTRY SPECIALIST 07/18/2023 Last Documented On 3 2:26PM ; [facility] Type 2 diabetes mellitus wit hout complication Medical Established Patient with Soco Alcantar ENTRY SPECIALIST 07/18/2023 Last Documented On 3 2:26PM ; [facility] 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 Medical Established Patient with Soco Alcantar ENTRY SPECIALIST 07/18/2023 Last Documented On 3 2:26PM ; [facility] Anxiety disorder NOS Established Patient with Sobia Short LISWS 03/07/2023 Last Documented On 3 9:52PM ; [facility] Dependence on nicotine in ci garettes - uncomplicated BH Established Patient with Sobia Short LISWS 03/07/2023 Last Documented On 3 9:52PM ; [facility] Mild recurrent major depression Estab lished Patient with Sobia Short LISWS 03/07/2023 Last Documented On 3 9:52PM ; [facility] [Body mass index [BMI] 33.0- 33.9, adult] assessment of body mass index Medical New Patient with Sonya Posada ENTRY SPECIALIST 03/07/2023 Last Documented On 3 7:51PM ; [facility] Colon screening Medical New Patient with Sonya Carlo ENTRY SPECIALIST 03/07/2023 Last Documented On 3 7:51PM ; [facility] Diabetes Risk Test Score was 7.0 score 03/07/2023 Medical New Patient with Sonya Carlo ENTRY SPECIALIST 03/07/2023 Last Documented On 3 7:51PM ; [facility] Screening for Hep C Medical New Patient with Ronnie Posada ENTRY SPECIALIST 03/07/2023 Last Documented On 3 7:51PM ; [facility] Screening for HIV Medical New Patient with Joselyn Posada ADRIEN 03/07/2023 Last Documented On 3 7:51PM ; [facility] Work Phone: [phone] History general Narrative - Reported Includes: Medical History in patient's chart Description Last Updated Not planning to have a baby in the next 12 months 07/18/2023 Last Documented On 3 2:26PM ; [facility] History of tooth extraction 03/07/2023 Last Documented On 3 7:51PM ; [facility] No medical history or no significant his tory 03/07/2023 Last Documented On 3 7:51PM ; [facility] No previous hospitalizations 03/07/2023 Last Documented On 3 7:51PM ; [facility] Recent immunization for flu 03/07/2023 Last Documented On 3 7:51PM ; [facility] Work Phone: [phone] Progress note* Progress note Date Encounter Last Documented by 07/18/2023 Medical Established Patient Last documented on 07/19/2023; 2:26 PM, Soco Alcantar ENTRY SPECIALIST; [facility] Active Problems & Conditions - F41.9 [...] For Visit Visit for: Recent discharge from [facility]. Referred Here Not referred by urgent care [...] reports that she was recently in a care home and was discharged about 2 weeks ago. Patient reports that she was admitted to the care home after a fall. Has not had any falls since being home. Patient reports that she is not sure how long she was in the care home, states she was in the hospital prior to the care home admission but only for a few days. Patient reports that she thinks she was a [facility]. Patient reports that she checks sugars [...] 0 days, 0 refills - ReliOn Pen Percy 31G X 6 MM Miscellaneous 31G X [...] 07/18/2023 02:41 pm BP-Sitting L108/60 mmHg Pulse Rate-Kczemhb104 bpm Respiration Rate16 per min Temp-Maounpcw70.9 F Srjmyb16 in Xaywuw933 lbs Body Mass Index31.5 kg/m2 Body Surface Area1.9 m2 Oxygen Cvfoxheisf27 % Vital Signs: - Systolic blood pressure [...] mammogram ordered, will look for colonoscopy at [facility]. Patient to follow up in 1 month [...] : Not at all. Bottom of Document [facility] Note Chief Complaint: Patient here for follow up NSTEMI. She denies chest pain, SOB, and palpitations. Gets a little lightheaded at times. She was discharged on Entresto and Farxiga but neither of them are on her medication list from the care home. HPI: Kiara Blanc is a 68 y.o. [...] an 68 y.o. female who came [facility]. [facility] known history of CAD, HLD, [...] Disp: , Rfl: meto (more content not included)...[facility]08-14-2023 NotePhysical Therapy Physical Therapy Treatment Patient Name: Kiara Blanc : 1955 Today's Date: 05/06/2023 Patient Active Problem List Diagnosis Coronary artery disease involving [place] coronary artery of [place] heart without angina pectoris Hyperlipidemia, mixed Edema of lower extremity Chronic diastolic heart failure (CMS/HCC) Tobacco dependence NSTEMI (non-ST elevated myocardial infarction) ([facility]) Acute cystitis without hematuria Hypoglycemia Traumatic rhabdomyolysis ([facility]) Acute on chronic systolic (congestive) heart failure ([facility]) Time : 13:09-13:48 05/06/23 1350 PT Last Visit PT Received On 05/06/23 General Subjective Pt per nursing can be seen for P.T. services per nursing staff , upon insurance underwriter sales entering the room pt was sidelying in the bed with her brief half off pt was awake and insurance underwriter sales asked pt about getting out of bed and to go to the bathroom to check her brief. Pt willing to get up and work with therapy Cognition Overall Cognitive Status Impaired Arousal/Alertness Delayed responses to stimuli;Inconsistent responses to stimuli Orientation Level Disoriented to time;Disoriented to situation;Disoriented to place (pt looking for her dog again today insurance underwriter sales had to explain to pt that she is not at home and her dog is at home with her . Pt could no longer use the phone today and did not even hold it the right way up to her ear) Awareness of Errors Decreased awareness of errors Problem Solving Assistance required to implement solutions Cognition Comments pts told insurance underwriter sales in the past that pt has dementia. [...] light in place Plan PT Discharge Recommendations [facility] facility placement Goals: Multi-Disciplinary Problems (from Physical [...] a railing 1 Mobility 6 Clicks T-Score 15[facility]08-14-2023 Note Discharge order placed. AVS uploaded to [facility]. Transport set up with [facility] at 4PM. Transport form and packet completed and left bedside the chart. Facility and floor RN aware of transport time. Phone number for report left with packet. No further OTM needs at this time.[facility] 05-06-2023 NoteHospital Medicine Discharge Summary Final Discharge Diagnosis: NSTEMI (non-ST elevated myocardial infarction) ([facility]) Admission Diagnosis: NSTEMI (non-ST elevated myocardial infarction) ([facility]) [I21.4] Hospital course: Kiara Blanc is an 68 y.o. female who came from [facility] for NSTEMI. Patient was admittied initailly at [facility] with known history of CAD, HLD, [...] Dear No primary care provider on file., [place] is advised to follow up with you within 1-2 weeks. Follow-up with: Cardiology Scheduled appointments: Future Appointments Date Time Provider Department Center 06/05/2023 9:00 AM Fany Sahu NP [facility]. Your medication list START taking these medications [...] capsule Commonly known a (more content not included)...[facility]08-14-2023 NoteThis report has been cancelled.[facility]08-14-2023 Note Attestation signed by Luis Alvarez DO at 05/06/2023 1:32 PM Agree with above. No behavioral complaints over the weekend. Recommend following PT/Ot's recommendations regarding placement. Psychiatry Service Progress Note Identifying Data Patient Name: Kiara Blanc MRN / CSN: [id number] Date of / Age: 6 1955 / 68 y.o. / female Encounter Date: 05/06/23 Diagnosis: The primary encounter diagnosis was NSTEMI (non-ST elevated myocardial infarction) ([facility]). A diagnosis of Acute on chronic systolic (congestive) heart failure (CMS/HCC) was also pertinent to this visit. Summary Kiara Blanc is a 68 y.o. female who presented on 04/26/2023 to [facility] from [facility]) for acute NSTEMI. Psychiatry was consulted on 04/29/2023 for dementia and delirium. Medical Course: Patient is a 68-year-old female with an unknown psychiatric history and medical history of CAD, HLD, CAD, chronic diastolic HF w/ NYHA Class II, diabetes mellitus presented to [facility] as a direct transfer for cardiology service evaluation for acute NSTEMI. She was admitted initially at [facility]) on 04/25/2023 after she was found [...] talk to , Mr. Cameron Blanc (ph: [phone]) at the patient's bedside. He called EMS [...] Social work has put in referrals to [facility] 1st choice; [facility] 2nd choice as well as alternate choices had no preference of order: [facility], [facility]; [facility]; [facility] and [facility]. Awaiting their review. 05/03/23 - start ZyPREXA [...] Initially sleeping, but up (more content not included)...[facility]08-13-2023 Note Hospital Medicine Daily Progress Note - 05/05/2023 10:49 AM; Room: [address] [place] [address] Admission: 04/26/2023 1:50 PM; Length of stay: 9 days THE HOSPITALIST TEAM PREFERS TO USE [employer] CHAT FOR COMMUNICATION 7AM-7PM. IF I DO NOT RESPOND WITHIN 15 MINUTES, PLEASE PAGE ME/CALL THROUGH THE OCEAN EXPORT AGENT. FROM 7PM-7AM, PLEASE PAGE [phone](COVR) Code Status: Full Code Discharge Destination: alf facility Discharge planning: Pending SNF Overview Patient [...] Principal Problem: NSTEMI (non-ST elevated myocardial infarction) ([facility]) Active Problems: Acute cystitis without hematuria Hypoglycemia Traumatic rhabdomyolysis ([facility]) Acute on chronic systolic (congestive) heart failure ([facility]) Assessment and Plan # NSTEMI: # Chronic [...] 51 04/26/2023 Lab Results Component Value Date [id number] 512 04/29/2023 Imaging ECG 12 lead Sinus tachycardia Septal infarct , age undetermined T wave abnormality, consider lateral ischemia Abnormal ECG Confirmed by MD KERA, EHAB ([id number]) on 05/04/2023 11:50:40 AM Discharge Planning Discharge Planning Living Arrangements: Spouse/significant other Support Systems: Spouse/significant other Type of Residence/Post Acute Needs: [facility] facility Will patient need Precert for Post Acute needs?: Yes Patient's goal for discharge: per patient should go to rehab and maybe rat exterminator care. Does the patient need discharge transport arranged?: Yes Has discharge transport been arranged?: No PT Discharge Recommendations: [facility] facility placement OT Discharge Recomm (more content not included)...[facility]08-13-2023 NoteCountryside working on the insurance precert.[facility]08-12-2023 NotePhysical Therapy Physical Therapy Treatment Patient Name: Kiara Blanc : 1955 Today's Date: 05/04/2023 Patient Active Problem List Diagnosis Coronary artery disease involving prairie [place] coronary artery of [place] heart without angina pectoris Hyperlipidemia, mixed Edema [...] seen for P.T. treatment session , upon insurance underwriter sales entering the room pt was supine in [...] across midline (reaching down to floor to miner pick cones off the floor) Dynamic Standing Balance-Level [...] sitting down. Other Activity Other Activity 2 Neurology Physician left pt in bedside chair with her chair alarm on , insurance underwriter sales informed nursing that pt's chair alarm is not working well when engaged and doing the test to make sure it goes off . Call light within reach of pt Plan PT Discharge Recommendations [facility] facility placement Goals: Multi-Disciplinary Problems (from Physical Therapy) Active Problems [facility]: 04/29/23 Goal Start Date Expected [...] without using bedrails 3 (more content not included)...[facility]08-12-2023 Note Still no decision from husbands top 2 SNF choices. Met with at bedside and advised him of 2 accepting SNF's. chose [facility]. Sent updates and asked them to start precert. Provided w/ [facility] info. [facility]08-12-2023 Note Attestation signed by Bette Sanchez MD at 05/04/2023 11:54 AM I [...] fraction. She is to follow-up with the [facility] cardi[place] office in [place]. Bette Sanchez MD, MPH, [facility], [facility], [facility] Interventional Cardiology Pager Email: [email or web address] Subjective The patient was seen and examined [...] Value Ventricular Rate 83 Atrial Rate 83 TN Interval 178 QRS DURATION 88 QT Interval 414 QTC CALCULATION(BAZETT) 486 P London 64 R-London -19 T Wave [place] 152 Impression Sinus rhythm with occasional Premature [...] The right ventricle a (more content not included)...[facility]08-12-2023 NoteHospital Medicine Daily Progress Note - 05/04/2023 11:00 AM; Room: [address] [place] [address] Admission: 04/26/2023 1:50 PM; Length of stay: 8 days THE HOSPITALIST TEAM PREFERS TO USE [employer] CHAT FOR COMMUNICATION 7AM-7PM. IF I DO NOT RESPOND WITHIN 15 MINUTES, PLEASE PAGE ME/CALL THROUGH THE OCEAN EXPORT AGENT. FROM 7PM-7AM, PLEASE PAGE [phone](COVR) Code Status: Full Code Discharge Destination: alf facility Discharge planning: Pending SNF Overview Patient [...] Principal Problem: NSTEMI (non-ST elevated myocardial infarction) ([facility]) Active Problems: Acute cystitis without hematuria Hypoglycemia Traumatic rhabdomyolysis ([facility]) Acute on chronic systolic (congestive) heart failure ([facility]) Assessment and Plan # NSTEMI: # Chronic [...] mmol/L 108* 108* 108* CO2 mmol/L 24 23 BUN mg/dL 18 24 26* CREATININE mg/dL 0.82 0.88 0.76 GLUCOSE mg/dL 75 197* 204* MAGNESIUM mg/dL 1.5* 1.5* 1.3* CALCIUM mg/dL 9.4 9.3 9.1 No lab exists for component: AFIO2, APHT, APCOT, APOT, ATCO2, CK, ALB, IBILI Results from last 7 days Lab Units 05/04/23 0744 05/03/23 2004 05/03/23 1630 05/03/23 1127 05/03/23 0714 05/02/23 2107 POCT GLUCOSE mg/dL 84 87 366* 236* 161* 204* Historical Values: (Includes values prior to this admission) Lab Results Component Value Date TSH 1.24 04/29/2023 HDL 34 04/26/2023 LDL 51 04/26/2023 Lab Results Component Value Date [id number] 512 04/29/2023 Imaging XR hip left 2 [...] 2. Osteoarthritis left hip. (more content not included)...[facility]08-12-2023 NoteOccupational Therapy Occupational Therapy Treatment Note Patient Name: Kiara Blanc Patient Date of : 1955 Today's Date: 05/04/23 Time in: 1034 Time Out: 1108 Total Time: 34 Active Ambulatory Problems Diagnosis Date Noted Coronary artery disease involving [place] coronary artery of prairie [place] heart without angina pectoris 07/18/2022 Hyperlipidemia, mixed [...] alarm on. Objective 2 OT Discharge Recommendation Snf Facility OT Equipment Recommendations TBD General Pain 0 Pain Location No pain behaviors noted to L hip this day Pain Comments Precautions: chair alarm UE WB status bilateral, WBAT LE WB status bilateral, WBAT Cognition Orientation Pt was oriented to person and birthday, month and year however, did not know the president or location ([facility] [place]) Attention Span Requires cues to stay on task Memory impaired Sequencing impaired Problem Solving impaired Other Neurology Physician questions further cognitive issues has pt had issues locating the bathroom, the sink and forgot were to put garbage. At [facility] insurance underwriter sales placed multiple grooming items in front of pt and asked her to point to each item as insurance underwriter sales named it. Pt only pointed to the [...] to change brief. Pt required assist to pulling unit floorhand hips even after given verbal cues Toileting: [...] With hands on for safety and with insurance underwriter sales guiding walker as pt was unable to follow instructions To toilet: Minimal Assist , Rolling Walker Comments: With hands on for safety and with insurance underwriter sales guiding walker as pt was unable to follow instructions/locate bathroom Functional Ambulation: Pt ambulated in room with use of walker with hands on for safety and with insurance underwriter sales to guide walker as pt had difficulty locating bathroom and sink even with verbal cues and insurance underwriter sales pointing in the direction. Tone: All extremities [...] Expected End Date E (more content not included)...[facility]08-11-20[facility], they need pending medicaid questionnaire filled out by . Drilling Fluids Specialist (SW) gave 's contact information, [facility] left voicemail. SW informed that they are unable to fully approve or begin precert without questionnaire being completed. [facility] informed SW that they are out of network, but are able to accept if patient has 5 denied facilities. KAREEM informed then that there are not 5 denied facilities. [facility] still reviewing. [facility] requested additional notes from patient's stay, Kareem sent via Ch[employer]. [facility] requested to reach out to Shani [phone] pertaining to questions over the weekend. OTM will continue to follow.[facility]08-11-2023 Note Hospital Medicine Daily Progress Note - 05/03/2023 12:09 PM; Room: 3131/3131-01 Admission: 04/26/2023 1:50 PM; Length of stay: 7 days THE HOSPITALIST TEAM PREFERS TO USE [employer] FOR COMMUNICATION 7AM-7PM. IF I DO NOT RESPOND WITHIN 15 MINUTES, PLEASE PAGE ME/CALL THROUGH THE OCEAN EXPORT AGENT. FROM 7PM-7AM, PLEASE PAGE [phone](COVR) Code Status: Full Code Discharge Destination: alf facility Discharge planning: Cath today Overview Patient [...] Principal Problem: NSTEMI (non-ST elevated myocardial infarction) ([facility]) Active Problems: Acute cystitis without hematuria Hypoglycemia Traumatic rhabdomyolysis ([facility]) Acute on chronic systolic (congestive) heart failure [place] Assessment and Plan # NSTEMI: # Chronic [...] 51 04/26/2023 Lab Results Component Value Date [id number] 512 04/29/2023 Imaging XR hip left 2 [...] No fracture nor dislo (more content not included)...[facility]08-11-2023 NotePhysical Therapy: Refusal of services note Wednesday May 03, 2023 Pt had been cleared medically to receive therapy services . Upon entering the room pt was yelling into her phone and out into hallway that she needed something to drink , when insurance underwriter sales entered the room insurance underwriter sales checked for pt on getting her something to drink with her nurse. Jenn informed insurance underwriter sales that pt was NPO to prepare for a test today heart cath. When insurance underwriter sales told pt why she could not have any water because of the testing pt became very upset and refused to partipate in therapy services . Neurology Physician wished pt the best of luck on her procedure today and made sure bed was in lowest position, and bed alarm on and that pt had her call light . Attempted time : 10:08-10:13am[facility]08[facility]2023 Note Attestation signed by Luis Alvarez DO at 05/03/2023 3:17 PM Agree; zyprexa on standby for agitation/irritability/psychosis. Psychiatry Service Progress Note Identifying Data Patient Name: Kiara Blanc MRN / CSN: [id number] Date of / Age: 6 1955 / 68 y.o. / female Encounter Date: 05/03/23 Diagnosis: The primary encounter diagnosis was NSTEMI (non-ST elevated myocardial infarction) (CMS/HCC). A diagnosis of Acute on chronic systolic (congestive) heart failure (CMS/HCC) was also pertinent to this visit. Summary Kiara Blanc is a 68 y.o. female who presented on 04/26/2023 to [facility] from [facility] for acute NSTEMI. Psychiatry was consulted on 04/29/2023 for dementia and delirium. Medical Course: Patient is a 68-year-old female with an unknown psychiatric history and medical history of CAD, HLD, CAD, chronic diastolic HF w/ NYHA Class II, diabetes mellitus presented to [facility] as a direct transfer for cardiology service evaluation for acute NSTEMI. She was admitted initially at [facility] ([facility]) on 04/25/2023 after she was found [...] talk to , Mr. Cameron Blanc (ph: [phone]) at the patient's bedside. He called EMS [...] Social work has put in referrals to [address]; [facility]' 2nd choice as well as alternate choices had no preference of order: [facility]; [facility]; [facility] and [facility]. Awaiting their review. 05/03/23 - start ZyPREXA [...] overnight. Unable to f (more content not included)...[facility]08-10-2023 Note Per RN patient is doing better today and is out of mitts and any form of restraints. Patient has not pulled at any of her leads or lines today. Per RN and FOREIGN SERVICE TEACHER advised them that he did remember now that a physician had given her a dx of dementia at some point. At request of the team they feel patient could be medically ready soon. Referrals made to [address]; [facility]' 2nd choice as well as alternate choices had no preference of order: [facility]; [facility]; [facility] and [facility]. Awaiting their review.[facility]08-10-2023 NotePhysical Therapy Physical Therapy Treatment Patient Name: Kiara Blanc : 1955 Today's Date: 05/02/2023 Patient Active Problem List Diagnosis Coronary artery disease involving prairie island coronary artery of prairie island heart without angina pectoris Hyperlipidemia, mixed Edema of lower extremity Chronic diastolic heart failure (CMS/HCC) Tobacco dependence NSTEMI (non-ST elevated myocardial infarction) (CMS/HCC) Acute cystitis without hematuria Hypoglycemia Traumatic rhabdomyolysis ([facility]) Acute on chronic systolic (congestive) heart failure ([facility]CC) Time : 14:10-14:40 05/02/23 1630 PT Last Visit PT Received On 05/02/23 General Subjective Pt per nursing was more confused today and nursing wanted pt to stay in bed after her therapy session. Nursing also stated that pt would not let them clean her up earlier , when insurance underwriter sales entered the room pt was R sidelying and had a soiled brief that was half off her , insurance underwriter sales told pt she had to get cleaned up and could not sit in her BM , pt willing to get cleaned up pt kept telling insurance underwriter sales there are holes in the bathroom and was wondering again where her dog was . Cognition Orientation Level Disoriented to time;Disoriented to situation;Disoriented to place (pts came in at end of treatment session and informed insurance underwriter sales that pt was diagnosed by some doctor he did not remember what doctor or when with dementia. Pt thought her turkey sandwich today tasted and was luxembourgish food) Static Sitting Balance Static Sitting-Balance Support [...] her lunch . Plan PT Discharge Recommendations [facility] facility placement Goals: Multi-Disciplinary Problems (from Physical [...] a railing 1 Mobility 6 Clicks T-Score 16[facility]08-10-2023 Note Physical Therapy Physical Therapy Treatment Patient Name: Kiara Blanc : 1955 Today's Date: 05/02/2023 Patient Active Problem List Diagnosis Coronary artery disease involving prairie [place] coronary artery of [place] heart without angina pectoris Hyperlipidemia, mixed Edema of lower extremity Chronic diastolic heart failure ([facility]/HCC) Tobacco dependence NSTEMI (non-ST elevated myocardial infarction) ([facility]) Acute cystitis without hematuria Hypoglycemia Traumatic rhabdomyolysis ([facility]) Acute on chronic systolic (congestive) heart failure ([facility]) Time : 14:10-14:40pm 05/02/23 1630 PT Last Visit PT Received On 05/02/23 General Subjective Pt per nursing was more confused today and nursing wanted pt to stay in bed after her therapy session. Nursing also stated that pt would not let them clean her up earlier , when insurance underwriter sales entered the room pt was R sidelying and had a soiled brief that was half off her , insurance underwriter sales told pt she had to get cleaned up and could not sit in her BM , pt willing to get cleaned up pt kept telling insurance underwriter sales there are holes in the bathroom and was wondering again where her dog was . Cognition Orientation Level Disoriented to time;Disoriented to situation;Disoriented to place (pts came in at end of treatment session and informed insurance underwriter sales that pt was diagnosed by some doctor he did not remember what doctor or when with dementia. Pt thought her turkey sandwich today tasted and was luxembourgish food) Static Sitting Balance Static Sitting-Balance Support [...] her lunch . Plan PT Discharge Recommendations [facility] facility placement Goals: Multi-Disciplinary Problems (from Physical [...] a railing 1 Mobility 6 Clicks T-Score 16[facility]08-10-2023 Note Hospital Medicine Daily Progress Note - 05/02/2023 12:19 PM; Room: [address] [place] [address] Admission: 04/26/2023 1:50 PM; Length of stay: 6 days THE HOSPITALIST TEAM PREFERS TO USE [employer] CHAT FOR COMMUNICATION 7AM-7PM. IF I DO NOT RESPOND WITHIN 15 MINUTES, PLEASE PAGE ME/CALL THROUGH THE OCEAN EXPORT AGENT. FROM 7PM-7AM, PLEASE PAGE [phone](COVR) Code Status: Full Code Discharge Destination: alf facility Discharge planning: Pending SNF placement Overview [...] Principal Problem: NSTEMI (non-ST elevated myocardial infarction) ([facility]) Active Problems: Acute cystitis without hematuria Hypoglycemia Traumatic rhabdomyolysis ([facility]) Acute on chronic systolic (congestive) heart failure ([facility]) Assessment and Plan # NSTEMI: # Chronic [...] 51 04/26/2023 Lab Results Component Value Date [id number] 512 04/29/2023 Imaging XR hip left 2 [...] lesion is id (more content not included)... [facility]08-10-2023 NoteClinical Nutrition Assessment Name: Kiara Blanc [...] meals and improve glucose control George Link, RDUnAdena Pike Medical Center08-10-2023 NotePhysical Therapy Cancellation of services for am April Pt per nursing can be seen for physical therapy services , upon insurance underwriter sales entering pt's room pt was supine in the bed eating her breakfast with HOB elevated to 40 degrees . Pt was asking where her dog was insurance underwriter sales explained to pt that she was in a hospital and her dog was at home . Pt said OH she thought her dog was around here referring to the hospital . Pt was also doing gross grasp movements when holding her silverware eating her breakfast , pt stated her low back hurt and pt is willing to work with insurance underwriter sales after she finishes her breakfast. Attempted time: 09:58-10:05UnAdena Pike Medical Center08-10-2023 Note Attestation signed by Luis [...] be placed in a SNF and subsequent care home post hospital discharge. Regardless of psychiatric diagnosis, [...] Patient Name: Kiara Blanc MRN / CSN: [id number] Date of / Age: 6 1955 / 68 y.o. / female Encounter Date: 05/02/23 Diagnosis: The primary encounter diagnosis was NSTEMI (non-ST elevated myocardial infarction) (CMS/HCC). A diagnosis of Acute on chronic systolic (congestive) heart failure (CMS/HCC) was also pertinent to this visit. Summary Kiara Blanc is a 68 y.o. female who presented on 04/26/2023 to [facility] from [facility] ([facility]) for acute NSTEMI. Psychiatry was consulted on 04/29/2023 for dementia and delirium. Medical Course: Patient is a 68-year-old female with an unknown psychiatric history and medical history of CAD, HLD, CAD, chronic diastolic HF w/ NYHA Class II, diabetes mellitus presented to [facility] as a direct transfer for cardiology service evaluation for acute NSTEMI. She was admitted initially at [facility] ([facility]) on 04/25/2023 after she was found [...] talk to , Mr. Cameron Blanc (ph: [phone]) at the patient's bedside. He called EMS when he found her after coming back from work. He mentions she frequently falls at home and has been hospitalized many times. Per , she refuses to use walker desp (more content not included)...[facility]08-09-2023 Note Attestation signed by Fercho Le MD at 05/01/2023 5:55 PM I personally saw and examined the patient on the same date of service as resident/fellow Tamera Cervantes. I discussed the findings and therapeutic plan with the resident/fellow Tamera Cervantes. I agree with the documentation, except for any edits/updates below. Teaching Physician's Revisions: I have discussed her situation with her primary medicinal plant picker Dr. Bette Sanchez. We were planning on proceeding with [...] Value Ventricular Rate 83 Atrial Rate 83 TN Interval 178 QRS DURATION 88 QT Interval 414 QTC CALCULATION(BAZETT) 486 P London 64 R-London -19 T Wave London 152 Impression Sinus rhythm with occasional Premature [...] of measurable tricuspid regurgit (more content not included)...[facility]08-09-2023 Note05/01/23 1620 Admission Assessment Questions Verify insurance with patient Yes ([place] Medicare Advantage) Patient is not willing to answer Admission Assessment Questions at this time. Neurology Physician asked if I could call her and she said no . OTM to follow. [facility]08-09-2023 NotePhysical Therapy Physical Therapy Treatment Patient Name: Kiara Blanc : 1955 Today's Date: 05/01/2023 Patient Active Problem List Diagnosis Coronary artery disease involving prairie island coronary artery of prairie island heart without angina pectoris Hyperlipidemia, mixed Edema [...] Cognitive Status Impaired (pt unable to tell insurance underwriter sales what she used to do for a [...] , SAQ 10 reps 1 set . Neurology Physician did a static stretch with pt's heel [...] Transfer Level of Assistance (more content not included)...[facility]08-09-2023 Note05/01/23 1513 Referral Data Referral Source [...] Spouse/significant other Type of Residence/Post Acute Needs [facility] facility Will patient need Precert for Post Acute needs? Yes Patient's goal for discharge per patient should go to rehab and maybe [facility] care. Does the patient need discharge transport arranged? Yes Has discharge transport been arranged? No Discharge Referral Plan and Patient Instructions: [employer] [facility]PS ([facility] APS involved Adithya San [facility] [phone] ext [phone] or [phone]) SW attempted to meet with patient. She [...] and doesn't do anything. SW spoke with [facility] Adithya San [phone] ext [phone]. (that visited with patient yesterday). They report that patients home is a hoarding home. They report it is in deplorable condition with mold. They cannot force the patient to go to rehab or rat exterminator care unless someone determines that patient does not have capacity to make her own decisions. They have offered to to assist and pay for clean up of the home. has evaded the offers and continually changes the subject when they offer. would like patient to go to rehab or intermediate manager care. He states he is agreeable to referrals to [facility] or [facility]. If these providers do not have available bed or unable to meet needs he is ok with referrals to: [facility], [facility], [facility], [facility] in [place] or [facility] [place] in no particular order. SW will hold off on referrals today due to patients behaviors and her need for restraints. It does not appear that patient has any rat exterminator coverage for care home if needed. SW referred to [facility] for determination if patient would qualify for Medicaid as secondary. SW to follow.[facility] 05-01-2023 NoteHospital Medicine Daily Progress Note - 05/01/2023 12:22 PM; Room: [facility]/3131-01 Admission: 04/26/2023 1:50 PM; Length of stay: 5 days THE HOSPITALIST TEAM PREFERS TO USE [employer] CHAT FOR COMMUNICATION 7AM-7PM. IF I DO NOT RESPOND WITHIN 15 MINUTES, PLEASE PAGE ME/CALL THROUGH THE OCEAN EXPORT AGENT. FROM 7PM-7AM, PLEASE PAGE [phone](COVR) Code Status: Full Code Discharge Destination: alf facility Discharge planning: Cath today Overview Patient [...] Principal Problem: NSTEMI (non-ST elevated myocardial infarction) ([facility]) Active Problems: Acute cystitis without hematuria Hypoglycemia Traumatic rhabdomyolysis ([facility]) Acute on chronic systolic (congestive) heart failure ([facility]) Assessment and Plan # NSTEMI: # Chronic [...] 51 04/26/2023 Lab Results Component Value Date [id number] 04/29/2023 Imaging Complete Echo (TTE) w/wo Imaging Agent, Strain, 3D, Bubble Study 1 1 [facility] Heart Station [address] [place] [address] [phone] (fax) Echocardiogram-[facility] Name: KIARA BLANC Study Date: 04/26/2023 03:54 PM B/P: 129 mmHg/77 mmHg HR: Date of : 1955 Location: [facility] Height: 66 in. Age: 68 year(s) Patient Room: [facility] Weight: 203 lb. Gender: Female Patient Status: InPt BSA: 2.01 m2 Indication: Chest Pain Examination: Echocardiogram (Complete), Lumason Contrast Image Quality: Technically difficult study the patient was uncooperative Patient Consent: Procedure explained to patient Conclusions Left Ventricle: The left ventricle appears normal (more content not included)...[facility]08-09-2023 NoteOccupational Therapy Occupational Therapy Treatment Note Patient Name: Kiara Blanc Patient Date of : 1955 Today's Date: 05/01/23 Time in: 0928 Time Out: 1037 Total Time: 69 Active Ambulatory Problems Diagnosis Date Noted Coronary artery disease involving prairie island coronary artery of prairie island heart without angina pectoris 07/18/2022 Hyperlipidemia, mixed [...] was still looking for her dog after insurance underwriter sales oriented pt. Objective 1 Pt was returned to bed at [facility] due to pt fidgeting in chair and being impulsive. Objective 2 Upon arrival pts bedding was saturated with urine (pt had pulled out Purewick), insurance underwriter sales notes skin was on buttocks was red (nursing notified) pt also c/o pain in L hip throughout session, during rolling activity and when bringing legs into and out of bed. Neurology Physician notified nursing as pt was found down for several days at home. OT Discharge Recommendation Snf Facility OT Equipment Recommendations TBD General Pain [...] -up Where Assessed: from chair, None Comments: Neurology Physician set up wash clothe and cued pt to wash areas of body LB Bathing Level of Assistance: Moderate assist Where Assessed: Supine (HOB raised) , from chair, None Comments: Rita care completed by insurance underwriter sales while supine, pt sat in chair to [...] body with minimal assistance (more content not included)...[facility]08-09-2023 Note Attestation signed by Luis Alvarez [...] Patient Name: Kiara Blanc MRN / CSN: [id number] Date of / Age: 6 1955 / 68 y.o. / female Encounter Date: 05/01/23 Diagnosis: The primary encounter diagnosis was NSTEMI (non-ST elevated myocardial infarction) ([facility]). A diagnosis of Acute on chronic systolic (congestive) heart failure (CMS/[facility]) was also pertinent to this visit. Summary Kiara Blanc is a 68 y.o. female who presented on 04/26/2023 to [facility] from [facility] ([facility]) for acute NSTEMI. Psychiatry was consulted on 04/29/2023 for dementia and delirium. Medical Course: Patient is a 68-year-old female with an unknown psychiatric history and medical history of CAD, HLD, CAD, chronic diastolic HF w/ NYHA Class II, diabetes mellitus presented to [facility] as a direct transfer for cardiology service evaluation for acute NSTEMI. She was admitted initially at [facility] ([facility]) on 04/25/2023 after she was found [...] talk to , Mr. Cameron Blanc (ph: [phone]) at the patient's bedside. He called EMS [...] seen or talked (more content not included)... [facility]08-08-2023 NoteSW given information from RN provided by [facility]. Case Workers Leanna Heck [phone] ext [phone] and Adithya San [phone] ext [phone]. They provided a release of information for [facility] to communicate with APS. Copy of release in paper chart. Due to being after hours hospital social worker will call in the am. No family at bedside. SW advised patient is not oriented and will need SNF. SW to follow [facility]08-08-2023 NotePhysical Therapy Physical Therapy Treatment Patient Name: Kiara Blanc : 1955 Today's Date: 04/30/2023 Patient Active Problem List Diagnosis Coronary artery disease involving prairie island coronary artery of prairie island heart without angina pectoris Hyperlipidemia, mixed Edema of lower extremity Chronic diastolic heart failure (CMS/HCC) Tobacco dependence NSTEMI (non-ST elevated myocardial infarction) (CMS/HCC) Acute cystitis without hematuria Hypoglycemia Traumatic rhabdomyolysis ([facility]/HCC) Time : 11:04-11:45 04/30/23 1556 PT Last Visit PT Received On 04/30/23 General Subjective Pt had been cleared medically by nursing staff to receive therapy services , nursing informed insurance underwriter sales that pt was refusing all services this morning including her am medications. Upon insurance underwriter sales entering the room pt was L sidelying in the bed with her food tray in bed with her , pt has 1 sand mitt on and while nursing in the room pt took off other sand mitt. Neurology Physician able to talk pt into working with [...] bedside chair with chair alarm on , insurance underwriter sales promised to come back a couple of hours to get pt back to bed and see how she was transferring pt in agreeable to do this . Plan Level of assist 1 assist PT Discharge Recommendations [facility] facility placement Goals: Multi-Disciplinary Problems (from Physical [...] from another person standi (more content not included)...[facility]08-08-2023 NoteHospital Medicine Daily Progress Note - 04/30/2023 1:14 PM; Room: [address] [place] [address] Admission: 04/26/2023 1:50 PM; Length of stay: 4 days THE HOSPITALIST TEAM PREFERS TO USE [employer] CHAT FOR COMMUNICATION 7AM-7PM. IF I DO NOT RESPOND WITHIN 15 MINUTES, PLEASE PAGE ME/CALL THROUGH THE OCEAN EXPORT AGENT. FROM 7PM-7AM, PLEASE PAGE [phone](COVR) Code Status: Full Code Discharge Destination: alf facility Discharge planning: Pending placement Overview Patient [...] Principal Problem: NSTEMI (non-ST elevated myocardial infarction) ([facility]) Active Problems: Acute cystitis without hematuria Hypoglycemia Traumatic rhabdomyolysis ([facility]) Assessment and Plan # NSTEMI: # Chronic [...] 51 04/26/2023 Lab Results Component Value Date [id number] 512 04/29/2023 Imaging Complete Echo (TTE) w/wo Imaging Agent, Strain, 3D, Bubble Study 1 1 [facility] Heart Station [address] [id number] [phone] (fax) Echocardiogram-[facility] Name: KIARA [...] The left ventricle appe (more content not included)...[facility] 04-30-2023 NotePhysical Therapy Physical Therapy Treatment Patient Name: Kiara Blanc : 1955 Today's Date: 04/30/2023 Patient Active Problem List Diagnosis Coronary artery disease involving prairie island coronary artery of prairie island heart without angina pectoris Hyperlipidemia, mixed Edema of lower extremity Chronic diastolic heart failure (CMS/HCC) Tobacco dependence NSTEMI (non-ST elevated myocardial infarction) ([facility]) Acute cystitis without hematuria Hypoglycemia Traumatic rhabdomyolysis ([facility]) Time : 12:30-13:00pm 04/30/23 1305 PT Last Visit PT Received On 04/30/23 General Subjective Neurology Physician had come back to put pt back to bed after she had been up for a while, upon insurance underwriter sales entering the room pt was sitting in [...] ,Chair alarm on Plan PT Discharge Recommendations [facility] facility placement Goals: Multi-Disciplinary Problems (from Physical [...] and limit effects of immobility 04/29/23 05/13/23 --[facility]08-08-2023 Note Attestation signed by Fercho Le [...] Value Ventricular Rate 83 Atrial Rate 83 TN Interval 178 QRS DURATION 88 QT Interval 414 QTC CALCULATION(BAZETT) 486 P London 64 R-London -19 T Wave London 152 Impression Sinus rhythm with occasional Premature [...] graft to the OM-2, (more content not included)...[facility] 04-30-2023 NoteSubjective Patient did not sleep [...] Value Ventricular Rate 83 Atrial Rate 83 TN Interval 178 QRS DURATION 88 QT Interval 414 QTC CALCULATION(BAZETT) 486 P London 64 R-London -19 T Wave [place] 152 Impression Sinus rhythm with occasional Premature [...] graft. Assessment/Plan NSTEMI (non-ST elevated myocardial infarction) ([facility]) CAD s/p CABG x4 (PARKER-LAD, L radial-OM 1, SVG-OM2, SVG-PDA) in 05/07/2017 HFrEF, 30%, newly reduced, unable to reliably assess NYHA at this point, diabetes mellitus Hypoglycemia Rhabdomyolysis AMS HLD Tobacco use Acute cystitis without hematuria Traumatic rhab (more content not included)...[facility] 04-29-2023 [facility] Progress [facility] - 04/29/2023 3:04 PM; Room: 3131/3131-01 Admission: 04/26/2023 1:50 PM; Length of stay: 3 days THE HOSPITALIST TEAM PREFERS TO USE [employer] FOR COMMUNICATION 7AM-7PM. IF I DO NOT RESPOND WITHIN 15 MINUTES, PLEASE PAGE ME/CALL THROUGH THE OCEAN EXPORT AGENT. FROM 7PM-7AM, PLEASE PAGE [phone](COVR) Code Status: Full Code Discharge Destination: alf facility Discharge planning: Pending psych eval Overview [...] Principal Problem: NSTEMI (non-ST elevated myocardial infarction) ([facility]) Active Problems: Acute cystitis without hematuria Hypoglycemia Traumatic rhabdomyolysis ([facility]) Assessment and Plan # NSTEMI: # New [...] 51 04/26/2023 Lab Results Component Value Date [id number] 04/29/2023 Imaging Complete Echo (TTE) w/wo Imaging Agent, Strain, 3D, Bubble Study 1 1 [facility] Heart Station [address] [place] [address] [phone] (fax) Echocardiogram-[facility] Name: KIARA [...] systolic function is sever (more content not included)...[facility]08-07-2023 NotePhysical Therapy Physical Therapy Evaluation Patient [...] Problem List Diagnosis Coronary artery disease involving prairie island coronary artery of prairie island heart without angina pectoris Hyperlipidemia, mixed Edema [...] is a 68 y/o (more content not included)...[facility]08-07-2023 Note Attestation signed by Fercho Le [...] Value Ventricular Rate 83 Atrial Rate 83 TN Interval 178 QRS DURATION 88 QT Interval 414 QTC CALCULATION(BAZETT) 486 P London 64 R-London -19 T Wave London 152 Impression Sinus rhythm with occasional Premature [...] 05/07/2017 PROCEDURES PERFORMED: Coronar (more content not included)...[facility]08-07-2023 NoteOccupational Therapy Occupational Therapy Evaluation Patient Name: Kiara Blanc : 1955 Today's Date: 04/29/2023 Time In: 1051 Time Out: 1106 History of Present Illness Kiara Blanc is an 68 y.o. female who came from [facility] for NSTEMI. Patient was admittied initailly at [facility] with known history of CAD, HLD, [...] Problem List Diagnosis Coronary artery disease involving prairie island coronary artery of prairie island heart without angina pectoris Hyperlipidemia, mixed Edema of lower extremity Chronic diastolic heart failure (CMS/HCC) Tobacco dependence NSTEMI (non-ST elevated myocardial infarction) ([facility]) Acute cystitis without hematuria Hypoglycemia Traumatic rhabdomyolysis ([facility]) History reviewed. No pertinent past medical history. History reviewed. No pertinent surgical history. Precautions Precautions Medical Precautions: bed alarm (B hand mitts, bed rails X4 per ns) Pain Pain Assessment Pain Score: 0 - [...] Level of Function Prior Function Level of [place]: (unknown , based on body habitus likely [...] (Total Assist) Total Score (more content not included)...[facility] 04-28-2023 Note Attestation signed by Fercho [...] Value Ventricular Rate 83 Atrial Rate 83 TN Interval 178 QRS DURATION 88 QT Interval 414 QTC CALCULATION(BAZETT) 486 P London 64 R-London -19 T Wave [place] 152 Impression Sinus rhythm with occasional Premature [...] was administered for better (more content not included)...[facility]08-06-2023 Note Hospital Medicine Daily Progress Note - 04/28/2023 1:24 PM; Room: [address] [place] [address] Admission: 04/26/2023 1:50 PM; Length of stay: 2 days THE HOSPITALIST TEAM PREFERS TO USE [employer] FOR COMMUNICATION 7AM-7PM. IF I DO NOT RESPOND WITHIN 15 MINUTES, PLEASE PAGE ME/CALL THROUGH THE OCEAN EXPORT AGENT. FROM 7PM-7AM, PLEASE PAGE [phone](COVR) Code Status: Full Code Discharge Destination: TBD [...] Principal Problem: NSTEMI (non-ST elevated myocardial infarction) ([facility]/HCC) Active Problems: Acute cystitis without hematuria Hypoglycemia Traumatic rhabdomyolysis ([facility]CC) Assessment and Plan # NSTEMI: # Drop [...] 51 04/26/2023 Lab Results Component Value Date [id number] 436 2022 Imaging Complete Echo (TTE) w/wo Imaging Agent, Strain, 3D, Bubble Study 1 1 [facility] Heart Station [address] [facility] [place] [address] [phone] (fax) Echocardiogram-[facility] Name: KIARA [...] Global left ventricular sy (more content not included)...[facility]08-05-2023 Note Attestation signed by Fercho Le [...] Value Ventricular Rate 83 Atrial Rate 83 TN Interval 178 QRS DURATION 88 QT Interval 414 QTC CALCULATION(BAZETT) 486 P London 64 R-London -19 T Wave [place] 152 Impression Sinus rhythm with occasional Premature [...] Ventricle: The right ventricle (more content not included)...[facility]08-05-2023 NoteHospital Medicine Daily Progress Note - 04/27/2023 1:18 PM; Room: 3131/3131-01 Admission: 04/26/2023 1:50 PM; Length of stay: 1 days THE HOSPITALIST TEAM PREFERS TO USE [employer] FOR COMMUNICATION 7AM-7PM. IF I DO NOT RESPOND WITHIN 15 MINUTES, PLEASE PAGE ME/CALL THROUGH THE OCEAN EXPORT AGENT. FROM 7PM-7AM, PLEASE PAGE [phone](COVR) Code Status: Full Code Discharge Destination: TBD [...] Principal Problem: NSTEMI (non-ST elevated myocardial infarction) ([facility]) Active Problems: Acute cystitis without hematuria Hypoglycemia Traumatic rhabdomyolysis ([facility]) Assessment and Plan # NSTEMI: # Drop [...] 51 04/26/2023 Lab Results Component Value Date [id number] 436 2022 Imaging Complete Echo (TTE) w/wo Imaging Agent, Strain, 3D, Bubble Study 1 1 [facility] Heart Station [address] [place] [address] [phone] (fax) Echocardiogram-[facility] Name: KIARA [...] systolic function appears re (more content not included)...[facility] 04-27-2023 NoteEMS had called APS regarding the patient. Attempted to call [facility]PS to follow up but they are only open Mon-Fri 8am-4:30pm.[facility]08-05-2023 [facility]Output [facility]23 NoteHospital Medicine History and Physical 04/26/2023 2:36 PM THE HOSPITALIST TEAM PREFERS TO USE [employer] CHAT FOR COMMUNICATION 7AM-7PM. IF I DO NOT RESPOND WITHIN 15 MINUTES, PLEASE PAGE ME/CALL THROUGH THE OCEAN EXPORT AGENT. FROM 7PM-7AM, PLEASE PAGE [phone](COVR) Chief Complaint NSTEMI History of Present Illness Kiara Blanc is an 68 y.o. female who came from [facility] for NSTEMI. Patient was admittied initailly at [facility] with known history of CAD, HLD, [...] Date Noted NSTEMI (non-ST elevated myocardial infarction) ([facility]) 04/26/2023 Acute cystitis without hematuria 04/26/2023 Hypoglycemia 04/26/2023 Traumatic rhabdomyolysis ([facility]) 04/26/2023 Coronary artery disease involving prairie island coronary artery of prairie island heart without angina pectoris 07/18/2022 Hyperlipidemia, mixed 07/18/2022 Edema of lower extremity 07/18/2022 Chronic diastolic heart failure ([facility]) 07/18/2022 Tobacco dependence 07/18/2022 Assessment and Plan NSTEMI-Type I versus some contribution by type II secondary to rhabdo. Continue to trend troponin curve, continue aspirin, Plavix, heparin drip. Add PPI for prophylaxis. Obtain surface echo. Discussed with purchasing internship. No plans for cath today and will [...] appropriate. Please see abov (more content not included)...[facility]06-19-2023 Hospital Discharge instructions* Discharge Instructions* [facility] [...] Everywhere. * UTI (Urinary Tract Infection): Female (Romanian) [facility] Includes: Assessments for all patient encounters Findings Encounter Date Anxiety disorder NOS Established Patient with Sobia Short LISWS 03/07/2023 Last Documented On 3 9:52PM ; [facility] Dependence on nicotine in ci garettes - uncomplicated Established Patient with Sobia Short LISWS 03/07/2023 Last Documented On 3 9:52PM ; [facility] Mild recurrent major depression Estab lished Patient with Sobia Short LISWS 03/07/2023 Last Documented On 3 9:52PM ; [facility] [Body mass index [BMI] 33.0- 33.9, adult] assessment of body mass index Medical New Patient with Sonya Posada ENTRY SPECIALIST 03/07/2023 Last Documented On 3 5:01PM ; [facility] Diabetes Risk Test Score was 7.0 score 03/07/2023 Medical New Patient with Sonya Posada ENTRY SPECIALIST 03/07/2023 Last Documented On 3 5:01PM ; [facility] Work Phone: 1(365) 261-153906-15-2023 Evaluation note Includes: Assessments for all patient encounters Findings Encounter Date Anxiety disorder NOS Established Patient with Sobia Short LISWS 03/07/2023 Last Documented On 3 9:52PM ; [facility] Dependence on nicotine in ci garettes - uncomplicated Established Patient with Sobia Short LISWS 03/07/2023 Last Documented On 3 9:52PM ; [facility] Mild recurrent major depression Estab lished Patient with Sobia Short LISWS 03/07/2023 Last Documented On 3 9:52PM ; [facility] [Body mass index [BMI] 33.0- 33.9, adult] assessment of body mass index Medical New Patient with Sonya Srer ENTRY SPECIALIST 03/07/2023 Last Documented On 3 5:15AM ; [facility] Colon screening Medical New Patient with Sonya Carlo ENTRY SPECIALIST 03/07/2023 Last Documented On 3 5:15AM ; [facility] Diabetes Risk Test Score was 7.0 score 03/07/2023 Medical New Patient with Sonya Carlo ENTRY SPECIALIST 03/07/2023 Last Documented On 3 5:15AM ; [facility] Screening for Hep C Medical New Patient with Ronnie sie Carlo ENTRY SPECIALIST 03/07/2023 Last Documented On 3 5:15AM ; [facility] Screening for HIV Medical New Patient with Joselyn e Carlo ENTRY SPECIALIST 03/07/2023 Last Documented On 3 5:15AM ; [facility] Work Phone: [phone]) 173-661006-15-2023 Evaluation note Includes: Assessments for all patient encounters Findings Encounter Date Anxiety disorder NOS Established Patient with Sobia Short LISWS 03/07/2023 Last Documented On 3 9:52PM ; [facility] Dependence on nicotine in ci garettes - uncomplicated Established Patient with Sobia Short LISWS 03/07/2023 Last Documented On 3 9:52PM ; [facility] Mild recurrent major depression Estab lished Patient with Sobia Short LISWS 03/07/2023 Last Documented On 3 9:52PM ; [facility] [Body mass index [BMI] 33.0- 33.9, adult] assessment of body mass index Medical New Patient with Sonya Srer ENTRY SPECIALIST 03/07/2023 Last Documented On 3 7:51PM ; [facility] Colon screening Medical New Patient with Sonya Carlo ENTRY SPECIALIST 03/07/2023 Last Documented On 3 7:51PM ; [facility] Diabetes Risk Test Score was 7.0 score 03/07/2023 Medical New Patient with Sonya Carlo ENTRY SPECIALIST 03/07/2023 Last Documented On 3 7:51PM ; [facility] Screening for Hep C Medical New Patient with Ronnie Posada ENTRY SPECIALIST 03/07/2023 Last Documented On 3 7:51PM ; [facility] Screening for HIV Medical New Patient with Joselyn daniela Posada ENTRY SPECIALIST 03/07/2023 Last Documented On 3 7:51PM ; [facility] Work Phone: 1(823) 276-954706-15-2023 History general Narrative - Reported Includes: Medical History in patient's chart Description Last Updated History of tooth extraction 03/07/2023 Last Documented On 3 5:15AM ; [facility] No medical history or no significant his tory 03/07/2023 Last Documented On 3 5:15AM ; [facility] No previous hospitalizations 03/07/2023 Last Documented On 3 5:15AM ; [facility] Recent immunization for flu 03/07/2023 Last Documented On 3 5:15AM ; [facility] Work Phone: 1(954) 185-362206-15-2023 History general Narrative - Reported Includes: Medical History in patient's chart Description Last Updated History of tooth extraction 03/07/2023 Last Documented On 3 7:51PM ; [facility] No medical history or no significant his tory 03/07/2023 Last Documented On 3 7:51PM ; [facility] No previous hospitalizations 03/07/2023 Last Documented On 3 7:51PM ; [facility] Recent immunization for flu 03/07/2023 Last Documented On 3 7:51PM ; [facility] Work Phone: 1(418) 343-833206-15-2023 Progress note* Progress note Date Encounter Last Documented by 03/07/2023 Established Patient Last docu mented on 03/10/2023; 9:52 PM, Sobia MALDONADO; [facility] Active Problems & Conditions - F41.9 - Anxiety Disorder Nos - E13.40 - Diabetes Mellitus Diabetic Peripheral Neuropathy - E11.9 - Diabetes Mellitus Type 2 Without Complication - I10 - Essential Hypertension - F33.0 - Major Depression Recurrent Mild - F17.210 - Nicotine Dependence Cigarettes Uncomplicated Chief Complaint The Chief Complaint is: Patient is in to establish care and [facility] met with patient to follow-up regarding PHQ [...] and provider: Counseling/Education P introduced patient to [facility] integrated model of care. P provided supportive and active listening, allowing patient the space to discuss concerns and explored with patient coping strategies and resources for support. Patient declines additional resources at this time but is aware to reach out to the office should she have questions or concerns. [facility] encouraged patient to continue addressing physical health [...] + 0 pt : Not at all. [facility]06-15-2023 Progress note* Progress note Date Encounter Last Documented by 03/07/2023 Medical New Patient Last jose cruz burt on 03/12/2023; 5:15 AM, Sonya Posada CNP; [facility] Active Problems & Conditions - F41.9 - Anxiety Disorder Nos - E13.40 - Diabetes Mellitus Diabetic Peripheral Neuropathy - E11.9 - Diabetes Mellitus Type 2 Without Complication - I10 - Essential Hypertension - F33.0 - Major Depression Recurrent Mild - F17.210 - Nicotine Dependence Cigarettes Uncomplicated Chief Complaint The Chief Complaint is: [facility] was seeing at [facility] diabetic. Referred Here Not referred by urgent care clinic and not the emergency room. No prior encounters. - Data to be reviewed: no clinical lab tests History of Present Illness Kiara Blanc is a 67 year old female. 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 Glucose Negative, Bilirubin Negative, Urobilinogen 0.2, Nitrite Negative, and Ketones 0 Negative. Abnormal Leukocyte Estrase +++Large, Blood Trace Hemolyzed, Specific [place] 1.025, and pH 7.0. Urine clarity Turbid [...] Present, PCP Not Present, OXY Not Present, [id number] Not Present, MTD Not Present, MET Not [...] Dysuria Outside Labs/Microbiology: Urine Culture & Sensitivity ([id number]) EndCited StartCited- Type 2 diabetes mellitus without [...] 60 years or older (3 points) [Pre-DM]. [facility]06-15-2023 Progress note* Progress note Date Encounter Last Documented by 03/07/2023 Medical New Patient Last jose cruz burt on 03/14/2023; 7:51 PM, Sonya Posada CNP; [facility] Active Problems & Conditions - F41.9 - Anxiety Disorder Nos - E13.40 - Diabetes Mellitus Diabetic Peripheral Neuropathy - E11.9 - Diabetes Mellitus Type 2 Without Complication - I10 - Essential Hypertension - F33.0 - Major Depression Recurrent Mild - F17.210 - Nicotine Dependence Cigarettes Uncomplicated Chief Complaint The Chief Complaint is: [facility] was seeing at [facility] diabetic. Referred Here Not referred by urgent care clinic and not the emergency room. No prior encounters. - Data to be reviewed: no clinical lab tests History of Present Illness Kiara Blanc is a 67 year old female. 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 Glucose Negative, Bilirubin Negative, Urobilinogen 0.2, Nitrite Negative, and Ketones 0 Negative. Abnormal Leukocyte Estrase +++Large, Blood Trace Hemolyzed, Specific [place] 1.025, and pH 7.0. Urine clarity Turbid [...] Present, PCP Not Present, OXY Not Present, [id number] Not Present, MTD Not Present, MET Not [...] Dysuria Outside Labs/Microbiology: Urine Culture & Sensitivity ([id number]) EndCited StartCited- Type 2 diabetes mellitus without [...] or older (3 points) [Pre-DM]. [facility]10-26-2022 [id number] discussion with patient regarding smoking cessation, she denies need for prescription for Wellbutrin, she refuses Chantix related to she already has nightmares, and she does not want nicotine gum because of dentures. States she is going to get nicotine patches that she is can order from the TV for free. [facility]10-26-2022 NoteContinued goal-directed medical therapy, aspirin, statin, Plavix, metoprolol and lisinopril No concerning symptoms currently Continue risk factor modifications including heart healthy diet, regular exercise as tolerated and she is trying to quit smoking.[facility]10-26-2022 NoteContinue statinUnA[facility] NoteContinues to take lasix daily with [...] on exertion or at rest or orthopnea. NDHC II-without exacerbation currently patient is euvolemic Return to clinic in 6 months or earlier if neededUnAdena [facility]10-[facility]22 NotePatient here for follow up LE edema per Mariam Sauh CNP. She had BMP drawn today. Review of Systems Cardiovascular: Positive for leg swelling. All other systems reviewed and are negative.[facility] 07-18-2022 NoteSays her LE edema is much better now. Denies chest pain and SOB. Review of Systems Cardiovascular: Positive for leg swelling.[facility] 07-18-2022 NoteHPI: Kiara Blanc is a [...] on exertion or at rest or orthopnea. NDHC II-without exacerbation currently patient is euvolemic Return to clinic in 6 months or earlier if needed Hyperlipidemia, mixed Continue statin Coronary artery disease involving [place] coronary artery of [place] heart without angina pectoris Continued goal-directed medical [...] can order from the TV for free. [facility]07-03-2022 NoteMR#: [id number] I [facility] Pt. Name: Kiara Blanc Admitted: 03/16/2022 [...] Quan MD Date Trans: 03/25/2022 05:24 P/mp [id number] cc: Peter Santos M.D. [address] [facility] [address] Reinaldo Marlow M.D. [address] [place], [place] [address]Evaluation note* Diagnosis Acute cystitis without hematuria- Primary Acute cystitis documented in this [facility]No assessment information available [facility] Work Phone: History general Narrative - Reported Includes: Medical History in patient's chart No Medical History RecordedHealth [facility] Work Phone: History of Present illness Narrative History of Present Illness not supported for this document type No History of Present Illness RecordedHealth [facility] Work Phone: Instructions Includes: Instructions for all patient encounters Education and Decision Aids were provided during visit for: Julian introduced patient to [facility] integrated model of care. ~[facility] provided supportive and active listening, allowing patient the space to discuss concerns and explored with patient coping strategies and resources for support. Patient declines additional resources at this time but is aware to reach out to the office should she have questions or concerns. ~[facility] encouraged patient to continue addressing physical health needs and attend appointments as scheduled Last Documented On 3 9:52PM ; [facility] Discussed nutritional needs teach healthy choices including fruits and vegetables Last Documented On 3 3:42PM ; [facility] Patient education about a pr oper diet Last Documented On 3 3:42PM ; [facility] Discussed concerns about exe rcise : promote physical activity Last Documented On 3 3:42PM ; [facility] Referred Patient to a Diabet es Self-Management Program Last Documented On 3 4:08PM ; [facility] Work Phone: Instructions Includes: Instructions for all patient encounters Education and Decision Aids were provided during visit for: Julian introduced patient to [facility] integrated model of care. ~[facility] provided supportive and active listening, allowing patient the space to discuss concerns and explored with patient coping strategies and resources for support. Patient declines additional resources at this time but is aware to reach out to the office should she have questions or concerns. ~[facility] encouraged patient to continue addressing physical health needs and attend appointments as scheduled Last Documented On 3 9:52PM ; [facility] Discussed nutritional needs teach healthy choices including fruits and vegetables Last Documented On 3 3:42PM ; [facility] Patient education about a pr oper diet Last Documented On 3 3:42PM ; [facility] Discussed concerns about exe rcise : promote physical activity ~ ~Get labs done and follow up in two weeks Last Documented On 3 5:15AM ; [facility] Referred Patient to a Diabet es Self-Management Program Last Documented On 3 4:08PM ; [facility] Work Phone: Instructions Includes: Instructions for all patient encounters Education and Decision Aids were provided during visit for: BHP introduced patient to [facility] integrated model of care. ~P provided supportive [...] scheduled Last Documented On 3 9:52PM ; [facility] Discussed nutritional needs teach healthy choices including fruits and vegetables Last Documented On 3 3:42PM ; [facility] Patient education about a pr oper diet Last Documented On 3 3:42PM ; [facility] Discussed concerns about exe rcise : promote physical activity ~ ~Get labs done and follow up in two weeks Last Documented On 3 5:15AM ; [facility] Referred Patient to a Diabet es Self-Management Program Last Documented On 3 4:08PM ; [facility] Work Phone: Patient problem outcome Narrative Includes: Evaluations & Outcomes for active Goals No [facility] Work Phone: Reason for referral (narrative)No Reason for Referral [facility]ed[facility] Work Phone: Review of systems Narrative - Reported Review of Systems not supported for this document type No Review of Systems [facility]ed[facility] Work Phone: Summary Purpose Family History No Family History Records Found Description Last Updated Maternal history of oncologic disorder 0 03/07/2023 Last Documented On 3 5:15AM ; [facility] Maternal history of type 2 diabetes luz itus 03/07/2023 Paternal history of type 2 diabetes luz itus 03/07/2023 Description Last Updated Maternal history of oncologic disorder 0 03/07/2023 Last Documented On 3 7:51PM ; [facility] Maternal history of type 2 diabetes luz itus 03/07/2023 Paternal history of type 2 diabetes luz itus 03/07/2023 Description Last Updated Maternal history of oncologic disorder 0 03/07/2023 Last Documented On 3 7:51PM ; [facility] Maternal history of type 2 diabetes [...] 03/27/2017 6:06 PM Directive Pat Aware Third Constitution Party Effective Date Reviewed Sta t[place] Declined [...] DATE CREATED AUTHOR AUTHOR'S ORGANIZ ATION 02/17/2022 [facility] dical Specialist DATE CREATED AUTHOR AUTHOR'S ORGANIZ ATION 04/04/2022 [facility] DATE CREATED AUTHOR AUTHOR'S ORGANIZ ATION 01/14/2023 [facility] DATE CREATED AUTHOR AUTHOR'S ORGANIZ ATION 01/23/2023 [facility] DATE CREATED AUTHOR AUTHOR'S ORGANIZ ATION 03/09/[address] [facility] DATE CREATED AUTHOR AUTHOR'S ORGANIZ ATION 06/14/2023 [facility] DATE CREATED AUTHOR AUTHOR'S ORGANIZ ATION 11/09/2023 [facility] Reason for Visit (unrecogniz ed section [...] Care Teams (unrecognized sec tion and content) Drapery Examiner Relationship Specialty Start Date End Date Sonya Posada, METAL STUD FRAMER - PROGRAM DIRECTOR/MUSIC DIRECTOR [address] [place] [address] PCP - General 03/11/23 Team Status: Inactive Member Role Status Dates HERMES Recinos Attending Provider Active Team Status: Inactive Member Role Status Dates NON STAFF Attending Provider Active Start: 2023 End: November 06, 2023 Goals (unrecognized [...] BE BASED ON THE PRIMARY CLINICAL RECORDS. [employer] provides no warranty or guarantee of the accuracy or completeness of information in this document.
[2024-03-07 12:39] LABS: Basophils Percent Auto 0.4 % (0.2-2.0); Eosinophils Absolute Auto 0.2 10^3/uL (0.0-0.7); Eosinophils Percent Auto 1.4 % (0.9-7.0); Hematocrit 41.1 % (36.0-48.0); Hemoglobin 13.2 g/dL (12.0-16.0); Immature Granulocytes Abs Auto 0.08 10^3/uL (0.00-0.03); Immature Granulocytes Pct Auto 0.7 % (0.0-0.5); Lymphocytes Absolute Auto 1.6 10^3/uL (1.2-3.8); Lymphocytes Percent Auto 14.5 % (20.5-60.0); Mean Corpuscular HGB Conc 32.1 g/dL (29.9-35.2); Mean Corpuscular Hemoglobin 26.5 pg (26.7-34.0); Mean Corpuscular Volume 82.5 fL (81.0-99.0); Mean Platelet Volume 10.7 fL (9.5-13.5); Monocytes Absolute Auto 0.9 10^3/uL (0.3-0.8); Monocytes Percent Auto 7.7 % (1.7-12.0); Neutrophils Absolute Auto 8.4 10^3/uL (1.4-6.5); Neutrophils Percent Auto 75.3 % (43.0-75.0); Platelet Count 282 10^3/uL (150-450); Red Blood Count 4.98 10^6/uL (4.20-5.40); Red Cell Distribution Width 15.4 % (11.0-15.0); White Blood Count 11.2 10^3/uL (4.0-11.0)
[2024-03-07 12:49] LABS: Anion Gap 17.5; BUN Creatinine Ratio 24.2; Calcium 8.7 mg/dL (8.5-10.1); Carbon Dioxide 21.3 mmol/L (21.0-32.0); Chloride 105 mmol/L (98-107); Estimated GFR (African America >60 (>=60); Estimated GFR (Non-African Ame >60 (>=60); Glucose 248 mg/dL (74-106); Potassium 4.8 mmol/L (3.5-5.1); Sodium 139 mmol/L (136-145)
--- NOTE | 2024-03-07 12:52 | ED.GENADUL1 ---
HPI HPI - General Adult General Chief complaint: Weakness Stated complaint: HIGH BLOOD SUGAR Time Seen by Provider: 03/07/24 11:02 Source: patient Mode of arrival: ambulance History of Present Illness HPI narrative: 68-year-old female to the emergency department chief complaint of inability to care for self. Patient was recently hospitalized at an outside facility which she does not know the name of. She reports she had a urinary tract infection causing weakness and confusion. She was discharged to [facility] in [place]. She checked herself out yesterday as she did not believe that she needed their care. She reports that in the intervening 24 hours she has realized that she is not fit for home and would like to be placed back in a group home. She has no new complaints at this time. No falls or injuries. Related Data Home Medications ?Medication ?Instructions ?Recorded ?Confirmed clopidogrel 75 mg tablet 75 mg PO DAILY 04/06/23 03/07/24 gabapentin 300 mg capsule 300 mg PO Q8H 04/06/23 03/07/24 insulin glargine 100 unit/mL (3 55 unit subcut DAILY 04/06/23 03/07/24 mL) subcutaneous pen (Lantus Solostar U-100 Insulin) amlodipine 10 mg tablet 10 mg PO DAILY 07/29/23 03/07/24 aspirin 81 mg tablet,delayed 81 mg PO DAILY 07/29/23 03/07/24 release (Birgit Low Dose Aspirin) atorvastatin 40 mg tablet (Lipitor) 40 mg PO QPM 07/29/23 03/07/24 dapagliflozin propanediol 10 mg 10 mg PO DAILY 07/29/23 03/07/24 tablet (Farxiga) metoprolol succinate 50 mg 50 mg PO DAILY 07/29/23 03/07/24 tablet,extended release 24 hr (Toprol XL) buspirone 5 mg tablet 5 mg PO BID 11/05/23 03/07/24 docusate sodium 100 mg capsule 100 mg PO DAILY 11/05/23 03/07/24 (Colace) donepezil 5 mg tablet (Aricept) 5 mg PO DAILY 11/05/23 03/07/24 ergocalciferol (vitamin D2) 1,250 50,000 unit PO .Saturday11/05/23 03/07/24 mcg (50,000 unit) capsule insulin lispro 100 unit/mL 1 sliding scale dose subcut 11/05/23 03/07/24 subcutaneous pen (Humalog KwikPen USEASDIRECTD (U-100) Insulin) liraglutide 0.6 mg/0.1 mL (18 mg/3 1.2 mg subcut Q24H 11/05/23 03/07/24 mL) subcutaneous pen injector (Victoza 3-Heladio) loperamide 2 mg capsule 2 mg PO Q6H PRN loose stool 11/05/23 03/07/24 melatonin 3 mg capsule 3 mg PO DAILY 11/05/23 03/07/24 pantoprazole 40 mg tablet,delayed 40 mg PO DAILY 11/05/23 03/07/24 release (Protonix) sertraline 25 mg tablet (Zoloft) 25 mg PO DAILY 11/05/23 03/07/24 dulaglutide 0.75 mg/0.5 mL 0.75 mg subcut QWEEK 03/07/24 03/07/24 subcutaneous pen injector (Trulicity) Previous Rx's ?Medication ?Instructions ?Recorded cefdinir 300 mg capsule 300 mg PO BID 14 days #28 caps 11/07/23 Allergies Allergy/AdvReac Type Severity Reaction Status Date / Time adhesive tape AdvReac Mild Verified 11/05/23 09:48 hydrocodone [From Vicodin] AdvReac Mild Nausea Verified 11/05/23 09:48 Opioid HPI Opioid Management Most Recent Opioid Data: Last Pain Scale 8 08/17/23 23:57 Last Pain Intensity 4 07/31/23 14:13 Ur Phencyclidine Scrn Negative (NEGATIVE) 04/06/23 15:46 Review of Systems ROS Status of ROS 10 or more systems reviewed and unremarkable except as noted in history and below [facility] Medical History (Updated 03/07/24 @ 14:27 by Aravind De La Garza MD) Renal cyst, acquired, right ?N28.1 - Cyst of kidney, acquired (ICD-10) Frequent falls ?R29.6 - Repeated falls (ICD-10) Fracture of toe ?S92.919A - Unspecified fracture of unspecified toe(s), initial encounter for closed fracture (ICD-10) Adult failure to thrive ?R62.7 - Adult failure to thrive (ICD-10) Weakness ?R53.1 - Weakness (ICD-10) Unable to care for self ?Z78.9 - Other specified health status (ICD-10) Dehydration ?E86.0 - Dehydration (ICD-10) Dementia ?F03.90 - Unspecified dementia, unspecified severity, without behavioral disturbance, psychotic disturbance, mood disturbance, and anxiety (ICD-10) CAD (coronary artery disease) ?I25.10 - Atherosclerotic heart disease of [place] coronary artery without angina pectoris (ICD-10) Elevated troponin ?R77.8 - Other specified abnormalities of plasma proteins (ICD-10) Adult failure to thrive ?R62.7 - Adult failure to thrive (ICD-10) HLD (hyperlipidemia) ?E78.5 - Hyperlipidemia, unspecified (ICD-10) Hypertension ?I10 - Essential (primary) hypertension (ICD-10) Hypokalemia ?E87.6 - Hypokalemia (ICD-10) Type 2 diabetes mellitus with insulin therapy ?E11.9 - Type 2 diabetes mellitus without complications (ICD-10) ?Z79.4 - long term care phlebotomist (current) use of insulin (ICD-10) Surgical History (Updated 07/28/23 @ 23:58 by Carlin Saenz) History of bilateral knee arthroplasty ?Z96.653 - Presence of artificial knee joint, bilateral (ICD-10) Hx of CABG ?Z95.1 - Presence of aortocoronary bypass graft (ICD-10) Family History (Updated 07/29/23 @ 00:00 by Carlin Saenz) Father Family history of CHF (congestive heart failure) Family history of cancer Family history of diabetes mellitus Family history of hypertension Mother Family history of CHF (congestive heart failure) Family history of cancer Family history of diabetes mellitus Family history of hypertension Family history of myocardial infarction Family history of stroke Social History (Updated 07/29/23 @ 00:04 by Carlin Saenz) Within the past year, how often did you have a drink containing alcohol: never Score interpretation: A score less than 3 is consistent with normal alcohol consumption. 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 Known occupational exposures/hazards: No Highest level of school completed/degree received: Associate degree: academic program Do you want help with school or training: No Are you now , , , , never or living with a partner: In a typical week, how many times do you talk on the telephone with family, friends, or neighbors: 3 or more times per week How often do you get together with friends or relatives: twice per week How often do you attend hoahaoism or scientologist services: 4 or more times per year Do you belong to any clubs or organizations such as hoahaoism groups unions, fraternal or athletic groups, or school groups: yes Total score: 4 Score interpretation: A score of greater than or equal to 2 indicates the lowest level of social isolation. Little interest or pleasure in doing things: not at all Feeling down, depressed, or hopeless: not at all Feel stressed/tense/nervous/anxious/difficulty sleeping: not at all Due to disability, difficulty making decisions: No Do you think of yourself as: straight/heterosexual Gender Identity: female Exam Narrative Exam Narrative: VITALS: I have reviewed the triage vital signs. GENERAL: Disheveled, elderly female in no distress NEURO: Alert and oriented x 3. Moves all extremities. Face is symmetric and expressive. EYES: PERRL. No scleral icterus or conjunctival injection. No discharge. HENT: Normocephalic, atraumatic. Hearing is grossly intact. Nares grossly patent and without discharge. Mucous membranes moist. NECK: No JVD. Patient moves neck without restriction. CARDIO: Rhythm regular. Normal rate. No murmur, rub, or gallop. Pulses equal bilaterally in the upper and lower extremity. No lower extremity edema. PULM: Lungs clear to auscultation in all [place]. No wheezes, rales, or rhonchi. No conversational dyspnea. No splinting, stridor, or accessory muscle use. GI/: Abdomen is soft and non-tender. Normoactive bowel sounds. EXTREMITIES: Symmetric muscle bulk. No joint swelling. No clubbing, cyanosis, or deformity. SKIN: Warm and dry. Normal turgor. No rash or lesions appreciated. PSYCH: Mood, affect, and interaction is appropriate to the setting. Constitutional Vital Signs, click to edit/add: Last Vital Signs Temp 98.6 F 03/07/24 10:53 Pulse 83 03/07/24 13:50 Resp 16 03/07/24 13:50 BP 147/80 H 03/07/24 13:34 Pulse Ox 95 03/07/24 13:50 O2 Del Method Room Air 03/07/24 11:04 Course Vital Signs Vital signs: Vital Signs Temperature 98.6 F 03/07/24 10:53 Pulse Rate 84 03/07/24 10:53 Respiratory Rate 20 03/07/24 10:53 Blood Pressure 156/76 H 03/07/24 10:53 Pulse Oximetry 95 03/07/24 10:53 Oxygen Delivery Method Room Air 03/07/24 10:53 Temperature 98.6 F 03/07/24 10:53 Pulse Rate 83 03/07/24 13:50 Respiratory Rate 16 03/07/24 13:50 Blood Pressure 147/80 H 03/07/24 13:34 Pulse Oximetry 95 03/07/24 13:50 Oxygen Delivery Method Room Air 03/07/24 11:04 Medical Decision Making MDM Narrative Medical decision making narrative: 68-year-old female to the emergency department with chief complaint of needing placement. Vital stable, the patient is afebrile. No acute process suspected by history or exam. Screening labs and urinalysis are ordered. Patient agrees with this plan. A call was placed to social sciences research scientist Leena to see if we can place the patient from the emergency department. CBC and chemistry without significant abnormality. Urinalysis remains mildly positive. A dose of Rocephin was given. Discussed with the on-call social sciences research scientist. Patient is appropriate for placement in a group home facility. Will give a prescription for 3 more days of Keflex. Plan is for the patient to return to [facility]. Medical Records Medical records reviewed: Yes I reviewed the patient's medical records Lab Data Lab results reviewed: Yes I reviewed the patient's lab results Labs: Lab Results 03/07/24 03/07/24 Range/Units 11:17 12:30 WBC 11.2 H (4.0-11.0) 10^3/uL RBC 4.98 (4.20-5.40) 10^6/uL Hgb 13.2 (12.0-16.0) g/dL Hct 41.1 (36.0-48.0) % MCV 82.5 (81.0-99.0) fL MCH 26.5 L (26.7-34.0) pg MCHC 32.1 (29.9-35.2) g/dL RDW 15.4 H (11.0-15.0) % Plt Count 282 (150-450) 10^3/uL MPV 10.7 (9.5-13.5) fL Neut % (Auto) 75.3 H (43.0-75.0) % Lymph % (Auto) 14.5 L (20.5-60.0) % [place] % (Auto) 7.7 (1.7-12.0) % Eos % (Auto) 1.4 (0.9-7.0) % Baso % (Auto) 0.4 (0.2-2.0) % Neut # (Auto) 8.4 H (1.4-6.5) 10^3/uL Lymph # (Auto) 1.6 (1.2-3.8) 10^3/uL [place] # (Auto) 0.9 H (0.3-0.8) 10^3/uL Eos # (Auto) 0.2 (0.0-0.7) 10^3/uL Baso # (Auto) 0.0 (0.0-0.1) 10^3/uL Abs Immat Gran (auto) 0.08 H (0.00-0.03) 10^3/uL Imm/Tot Granulo (auto) 0.7 H (0.0-0.5) % Sodium 139 (136-145) mmol/L Potassium 4.8 (3.5-5.1) mmol/L Chloride 105 (98-107) mmol/L Carbon Dioxide 21.3 (21.0-32.0) mmol/L Anion Gap 17.5 BUN 22.0 H (7.0-18.0) mg/dL Creatinine 0.91 (0.55-1.02) mg/dL Est GFR ( Amer) >60 (>=60) Est GFR (Non-Af Amer) >60 (>=60) BUN/Creatinine Ratio 24.2 Glucose 248 H (74-106) mg/dL Calcium 8.7 (8.5-10.1) mg/dL Urine Color Lt. yellow (YELLOW) Urine Clarity Sl cloudy (CLEAR) Urine pH 5.5 (5.0-9.0) Ur Specific [place] >=1.030 A (1.005-1.025) Urine Protein 100 A (NEG/TRACE) mg/dL Urine Glucose (UA) >=1000 A (NEGATIVE) mg/dL Urine Ketones 15 A (NEGATIVE) mg/dL Urine Occult Blood Moderate A (NEGATIVE) Urine Nitrite Negative (NEGATIVE) Urine Bilirubin Negative (NEGATIVE) Urine Urobilinogen 0.2 (0.2-1.0) EU/dL Ur Leukocyte Esterase Small A (NEGATIVE) Discharge Plan Discharge Stand Alone Forms: Portal Instructions Chief Complaint: Weakness Clinical Impression: Debility, Hyperglycemia, Acute UTI Patient Disposition: Home, Self-Care Time of Disposition Decision: 14:26 Condition: Fair Mode of Transportation: EMS Prescriptions / Home Meds: No Action amlodipine 10 mg tablet 10 mg PO DAILY dapagliflozin propanediol [Farxiga] 10 mg tablet 10 mg PO DAILY atorvastatin [Lipitor] 40 mg tablet 40 mg PO QPM metoprolol succinate [Toprol XL] 50 mg tablet extended release 24 hr 50 mg PO DAILY aspirin [Birgit Low Dose Aspirin] 81 mg tablet,delayed release (DR/EC) 81 mg PO DAILY insulin lispro [Humalog KwikPen Insulin] 100 unit/mL insulin pen 1 sliding scale dose subcut USEASDIRECTD docusate sodium [Colace] 100 mg capsule 100 mg PO DAILY buspirone 5 mg tablet 5 mg PO BID donepezil [Aricept] 5 mg tablet 5 mg PO DAILY loperamide 2 mg capsule 2 mg PO Q6H PRN (Reason: loose stool) melatonin 3 mg capsule 3 mg PO DAILY pantoprazole [Protonix] 40 mg tablet,delayed release (DR/EC) 40 mg PO DAILY sertraline [Zoloft] 25 mg tablet 25 mg PO DAILY Victoza 3-Heladio 0.6 mg/0.1 mL (18 mg/3 mL) pen injector 1.2 mg subcut Q24H ergocalciferol (vitamin D2) 1,250 mcg (50,000 unit) capsule 50,000 unit PO .SATURDAY cefdinir 300 mg capsule 300 mg PO BID 14 Days Qty: 28 0RF Trulicity 0.75 mg/0.5 mL pen injector 0.75 mg SUBCUT QWEEK gabapentin 300 mg capsule 300 mg PO Q8H insulin glargine [Lantus Solostar U-100 Insulin] 100 unit/mL (3 mL) insulin pen 55 unit SUBCUT DAILY Rx Instructions: PER RETAIL FILL HX - LAST FILLED 02/03/23 FOR A 62 DAY SUPPLY clopidogrel 75 mg tablet 75 mg PO DAILY Print Language: Occitan Instructions: Diabetic Hyperglycemia (ED), Urinary Tract Infection in Older Adults (ED) Referrals: Physician,Non-Staff, MD [Primary Care Provider] - 1 week
[2024-03-07 13:01] LABS: Bilirubin Urine NEGATIVE (NEGATIVE); Blood Urine MODERATE (NEGATIVE); Clarity Urine SL CLOUDY (CLEAR); Color Urine LT. YELLOW (YELLOW); Glucose Urine UA >=1000 mg/dL (NEGATIVE); Ketones Urine 15 mg/dL (NEGATIVE); Leukocyte Esterase Urine SMALL (NEGATIVE); Nitrite Urine NEGATIVE (NEGATIVE); Protein Urine 100 mg/dL (NEG/TRACE); Specific Gravity Urine >=1.030 (1.005-1.025); Urobilinogen Urine 0.2 EU/dL (0.2-1.0); pH Urine 5.5 (5.0-9.0)
[2024-03-07] MEDS: CEFTRIAXONE 1,000 MG in 0.9 % SODIUM CHLORIDE 50 ML 100 MG IV (13:47)
== END 2024-03-07 16:36 | disposition home or self-care (01) ==
PROVIDERS: Emergency Provider Student in an Organized Health Care Education/Training Program
DX: N39.0 Urinary tract infection, site not specified (principal); E11.65 Type 2 diabetes mellitus with hyperglycemia; R53.81 Other malaise; F17.200 Nicotine dependence, unspecified, uncomplicated
CPT/HCPCS: 36415; 36416; 80048; 81003; 85025; 93005; 96365; 99284; J0696

== ENCOUNTER 2024-03-24 15:03 | Emergency (ER) | payer MEDICARE, SELFPAY ==
[2024-03-24] VITALS (10 sets, daily range): BP systolic 117–147; BP diastolic 80–84; PULSE 76–95; TEMP 36.5; O2SAT 95–98; BMI 32.3
[2024-03-24 15:16] LABS: Glucometer 299 mg/dL (74-106)
--- NOTE | 2024-03-24 15:18 | ECG_ITS ---
[facility] Test Date: 2024-03-24 Pat Name: EMILY HARO Department: Room: - Gender: Female Traveling Clerk: : [id number] Requested By: Order Number: [id number] Reading MD: BONNIE AVILA Measurements Intervals [place] Rate: 78 P: 61 [place]: 162 QRS: -29 QRSD: 94 T: 167 QT: 370 QTc: 404 Interpretive Statements 1100 Sinus rhythm 1470 with occasional supraventricular premature complexes 3434 Septal myocardial infarction, age undetermined 9150 abnormal ECG Compared to ECG 03/07/2024 11:02:44 Left-axis deviation no longer present Myocardial infarct finding still present Electronically Signed On 03-25-2024 6:51:12 EDT by BONNIE AVILA
--- NOTE | 2024-03-24 15:20 | ED.GENADUL1 ---
HPI HPI - General Adult General Chief complaint: Weakness Stated complaint: Hyperglcemia Time Seen by Provider: 03/24/24 15:08 Source: patient Mode of arrival: Wheelchair History of Present Illness HPI narrative: 69-year-old female presents for elevated blood sugar. She had been in an ECF for several weeks and signed herself out 4 days ago. She states she signed her self out to take care of her significant other. She has not been taking her medications at home even though she has them and as a result her sugar has gone up. She admits that she has not taking care of herself well at home. She does not seem to have any pain and does not have a fever. Related Data Home Medications ?Medication ?Instructions ?Recorded ?Confirmed clopidogrel 75 mg tablet 75 mg PO DAILY 04/06/23 03/07/24 gabapentin 300 mg capsule 300 mg PO Q8H 04/06/23 03/07/24 insulin glargine 100 unit/mL (3 55 unit subcut DAILY 04/06/23 03/07/24 mL) subcutaneous pen (Lantus Solostar U-100 Insulin) amlodipine 10 mg tablet 10 mg PO DAILY 07/29/23 03/07/24 aspirin 81 mg tablet,delayed 81 mg PO DAILY 07/29/23 03/07/24 release (Birgit Low Dose Aspirin) atorvastatin 40 mg tablet (Lipitor) 40 mg PO QPM 07/29/23 03/07/24 dapagliflozin propanediol 10 mg 10 mg PO DAILY 07/29/23 03/07/24 tablet (Farxiga) metoprolol succinate 50 mg 50 mg PO DAILY 07/29/23 03/07/24 tablet,extended release 24 hr (Toprol XL) buspirone 5 mg tablet 5 mg PO BID 11/05/23 03/07/24 docusate sodium 100 mg capsule 100 mg PO DAILY 11/05/23 03/07/24 (Colace) donepezil 5 mg tablet (Aricept) 5 mg PO DAILY 11/05/23 03/07/24 ergocalciferol (vitamin D2) 1,250 50,000 unit PO .Saturday11/05/23 03/07/24 mcg (50,000 unit) capsule insulin lispro 100 unit/mL 1 sliding scale dose subcut 11/05/23 03/07/24 subcutaneous pen (Humalog KwikPen USEASDIRECTD (U-100) Insulin) liraglutide 0.6 mg/0.1 mL (18 mg/3 1.2 mg subcut Q24H 11/05/23 03/07/24 mL) subcutaneous pen injector (Victoza 3-Heladio) loperamide 2 mg capsule 2 mg PO Q6H PRN loose stool 11/05/23 03/07/24 melatonin 3 mg capsule 3 mg PO DAILY 11/05/23 03/07/24 pantoprazole 40 mg tablet,delayed 40 mg PO DAILY 11/05/23 03/07/24 release (Protonix) sertraline 25 mg tablet (Zoloft) 25 mg PO DAILY 11/05/23 03/07/24 dulaglutide 0.75 mg/0.5 mL 0.75 mg subcut QWEEK 03/07/24 03/07/24 subcutaneous pen injector (Trulicity) Previous Rx's ?Medication ?Instructions ?Recorded cefdinir 300 mg capsule 300 mg PO BID 14 days #28 caps 11/07/23 cephalexin 500 mg capsule 500 mg PO BID 3 days #6 caps 03/07/24 Allergies Allergy/AdvReac Type Severity Reaction Status Date / Time adhesive tape AdvReac Mild Verified 11/05/23 09:48 hydrocodone [From Vicodin] AdvReac Mild Nausea Verified 11/05/23 09:48 Opioid HPI Opioid Management Most Recent Opioid Data: Last Pain Scale 6 03/24/24 16:02 Last Pain Intensity 4 07/31/23 14:13 Ur Phencyclidine Scrn Negative (NEGATIVE) 04/06/23 15:46 Review of Systems ROS Narrative A ten point review of systems is negative except as noted above. [facility] Medical History (Updated 03/24/24 @ 17:15 by Epi Edgar MD) Renal cyst, acquired, right ?N28.1 - Cyst of kidney, acquired (ICD-10) Frequent falls ?R29.6 - Repeated falls (ICD-10) Fracture of toe ?S92.919A - Unspecified fracture of unspecified toe(s), initial encounter for closed fracture (ICD-10) Adult failure to thrive ?R62.7 - Adult failure to thrive (ICD-10) Weakness ?R53.1 - Weakness (ICD-10) Unable to care for self ?Z78.9 - Other specified health status (ICD-10) Dehydration ?E86.0 - Dehydration (ICD-10) Dementia ?F03.90 - Unspecified dementia, unspecified severity, without behavioral disturbance, psychotic disturbance, mood disturbance, and anxiety (ICD-10) CAD (coronary artery disease) ?I25.10 - Atherosclerotic heart disease of [place] coronary artery without angina pectoris (ICD-10) Elevated troponin ?R77.8 - Other specified abnormalities of plasma proteins (ICD-10) Adult failure to thrive ?R62.7 - Adult failure to thrive (ICD-10) HLD (hyperlipidemia) ?E78.5 - Hyperlipidemia, unspecified (ICD-10) Hypertension ?I10 - Essential (primary) hypertension (ICD-10) Hypokalemia ?E87.6 - Hypokalemia (ICD-10) Type 2 diabetes mellitus with insulin therapy ?E11.9 - Type 2 diabetes mellitus without complications (ICD-10) ?Z79.4 - FCI (current) use of insulin (ICD-10) Surgical History (Updated 07/28/23 @ 23:58 by Carlin Saenz) History of bilateral knee arthroplasty ?Z96.653 - Presence of artificial knee joint, bilateral (ICD-10) Hx of CABG ?Z95.1 - Presence of aortocoronary bypass graft (ICD-10) Family History (Updated 07/29/23 @ 00:00 by Carlin Saenz) Father Family history of CHF (congestive heart failure) Family history of cancer Family history of diabetes mellitus Family history of hypertension Mother Family history of CHF (congestive heart failure) Family history of cancer Family history of diabetes mellitus Family history of hypertension Family history of myocardial infarction Family history of stroke Social History (Updated 07/29/23 @ 00:04 by Carlin Saenz) Within the past year, how often did you have a drink containing alcohol: never Score interpretation: A score less than 3 is consistent with normal alcohol consumption. 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 Known occupational exposures/hazards: No Highest level of school completed/degree received: Associate degree: academic program Do you want help with school or training: No Are you now , , , , never or living with a partner: In a typical week, how many times do you talk on the telephone with family, friends, or neighbors: 3 or more times per week How often do you get together with friends or relatives: twice per week How often do you attend denominational or yazdanism services: 4 or more times per year Do you belong to any clubs or organizations such as denominational groups unions, fraternal or athletic groups, or school groups: yes Total score: 4 Score interpretation: A score of greater than or equal to 2 indicates the lowest level of social isolation. Little interest or pleasure in doing things: not at all Feeling down, depressed, or hopeless: not at all Feel stressed/tense/nervous/anxious/difficulty sleeping: not at all Due to disability, difficulty making decisions: No Do you think of yourself as: straight/heterosexual Gender Identity: female Exam Narrative Exam Narrative: Nurses note and vital signs reviewed and patient is not hypoxic. General: The patient appears well and in no apparent distress. Patient is resting comfortably on cart. Skin: Warm, dry, no pallor noted. There is no rash noted. Head: Normocephalic, atraumatic Eye: Normal conjunctiva, no drainage Ears, Nose, Mouth, and Throat: oral mucosa is moist. Nares patent. Mouth without vesicles. Ear canals patent. Tm's without Erythema Cardiovascular: Regular Rate and Rhythm Respiratory: Patient is in no distress, no accessory muscle use, lungs are clear to auscultation, no wheezing, rales or rhonchi Back: non-tender GI: Normal bowel sounds, no tenderness to palpation, no masses appreciated. No rebound, guarding, or rigidity noted. Musculoskeletal: The patient has no evidence of calf tenderness, symmetrical pulses noted bilaterally Neurological: A&O x4, normal speech Psychiatric: Cooperative, tearful Constitutional Vital Signs, click to edit/add: Last Vital Signs Temp 97.7 F 03/24/24 15:09 Pulse 78 03/24/24 16:50 Resp 23 H 03/24/24 16:50 BP 147/80 H 03/24/24 15:09 Pulse Ox 95 03/24/24 15:09 Course Vital Signs Vital signs: Vital Signs Temperature 97.7 F 03/24/24 15:09 Pulse Rate 95 H 03/24/24 15:09 Respiratory Rate 20 03/24/24 15:09 Blood Pressure 147/80 H 03/24/24 15:09 Pulse Oximetry 95 07/02/24 15:09 Temperature 97.7 F 03/24/24 15:09 Pulse Rate 78 03/24/24 16:50 Respiratory Rate 23 H 03/24/24 16:50 Blood Pressure 147/80 H 03/24/24 15:09 Pulse Oximetry 95 03/24/24 15:09 Medical Decision Making MDM Narrative Medical decision making narrative: Blood sugar was elevated and she was given IV insulin. I spoke to neonatal social worker who communicated with the facility where she had left 4 days ago. They are unable to accommodate her and this was discussed with the patient. She will be discharged home and will follow-up with her doctor. I explained the importance of compliance with her medications. Lab Data Lab results reviewed: Yes I reviewed the patient's lab results Labs: Lab Results 03/24/24 03/24/24 03/24/24 Range/Units 15:15 15:30 17:11 WBC 9.6 (4.0-11.0) 10^3/uL RBC 4.98 (4.20-5.40) 10^6/uL Hgb 13.3 (12.0-16.0) g/dL Hct 41.8 (36.0-48.0) % MCV 83.9 (81.0-99.0) fL MCH 26.7 (26.7-34.0) pg MCHC 31.8 (29.9-35.2) g/dL RDW 15.5 H (11.0-15.0) % Plt Count 272 (150-450) 10^3/uL MPV 10.6 (9.5-13.5) fL Neut % (Auto) 71.8 (43.0-75.0) % Lymph % (Auto) 18.6 L (20.5-60.0) % Craig % (Auto) 7.6 (1.7-12.0) % Eos % (Auto) 1.1 (0.9-7.0) % Baso % (Auto) 0.3 (0.2-2.0) % Neut # (Auto) 6.9 H (1.4-6.5) 10^3/uL Lymph # (Auto) 1.8 (1.2-3.8) 10^3/uL Craig # (Auto) 0.7 (0.3-0.8) 10^3/uL Eos # (Auto) 0.1 (0.0-0.7) 10^3/uL Baso # (Auto) 0.0 (0.0-0.1) 10^3/uL Abs Immat Gran (auto) 0.06 H (0.00-0.03) 10^3/uL Imm/Tot Granulo (auto) 0.6 H (0.0-0.5) % Sodium 136 (136-145) mmol/L Potassium 4.1 (3.5-5.1) mmol/L Chloride 103 (98-107) mmol/L Carbon Dioxide 22.9 (21.0-32.0) mmol/L Anion Gap 14.2 BUN 28.0 H (7.0-18.0) mg/dL Creatinine 1.26 H (0.55-1.02) mg/dL Est GFR ( Amer) 51 L (>=60) Est GFR (Non-Af Amer) 42 L (>=60) BUN/Creatinine Ratio 22.2 Glucose 344 H (74-106) mg/dL Calcium 8.6 (8.5-10.1) mg/dL POC Glucose 299 H 306 H (74-106) mg/dL ECG Data Attestation: I personally reviewed and interpreted this ECG as follows: (EKG on my interpretation shows sinus rhythm with a rate of 78 and no acute change) Critical Care Time Critical Care Time Critical Care Time: Yes Total Critical Care Time: 35 Attestation: Due to the high probability of sudden and clinically significant deterioration in the patient's condition he/she required the highest level of my preparedness to intervene urgently I provided critical care time including documentation time, medication orders and management, reevaluation, vital sign assessment, ordering and reviewing of lab tests, ordering and reviewing of x-ray studies, and admission orders. Aggregate critical care time is 35 minutes including only time during which I was engaged in work directly related to his/her care and did not include time spent treating other patients simultaneously. Discharge Plan Discharge Stand Alone Forms: Portal Instructions Chief Complaint: Weakness Clinical Impression: Hyperglycemia, Non-compliant patient Patient Disposition: Home, Self-Care Time of Disposition Decision: 17:15 Condition: Good Mode of Transportation: Private Vehicle Prescriptions / Home Meds: No Action amlodipine 10 mg tablet 10 mg PO DAILY dapagliflozin propanediol [Farxiga] 10 mg tablet 10 mg PO DAILY atorvastatin [Lipitor] 40 mg tablet 40 mg PO QPM metoprolol succinate [Toprol XL] 50 mg tablet extended release 24 hr 50 mg PO DAILY aspirin [Birgit Low Dose Aspirin] 81 mg tablet,delayed release (DR/EC) 81 mg PO DAILY insulin lispro [Humalog KwikPen Insulin] 100 unit/mL insulin pen 1 sliding scale dose subcut USEASDIRECTD docusate sodium [Colace] 100 mg capsule 100 mg PO DAILY buspirone 5 mg tablet 5 mg PO BID donepezil [Aricept] 5 mg tablet 5 mg PO DAILY loperamide 2 mg capsule 2 mg PO Q6H PRN (Reason: loose stool) melatonin 3 mg capsule 3 mg PO DAILY pantoprazole [Protonix] 40 mg tablet,delayed release (DR/EC) 40 mg PO DAILY sertraline [Zoloft] 25 mg tablet 25 mg PO DAILY Victoza 3-Heladio 0.6 mg/0.1 mL (18 mg/3 mL) pen injector 1.2 mg subcut Q24H ergocalciferol (vitamin D2) 1,250 mcg (50,000 unit) capsule 50,000 unit PO .SATURDAY cefdinir 300 mg capsule 300 mg PO BID 14 Days Qty: 28 0RF Trulicity 0.75 mg/0.5 mL pen injector 0.75 mg SUBCUT QWEEK cephalexin 500 mg capsule 500 mg PO BID 3 Days Qty: 6 0RF gabapentin 300 mg capsule 300 mg PO Q8H insulin glargine [Lantus Solostar U-100 Insulin] 100 unit/mL (3 mL) insulin pen 55 unit SUBCUT DAILY Rx Instructions: PER RETAIL FILL HX - LAST FILLED 02/03/23 FOR A 62 DAY SUPPLY clopidogrel 75 mg tablet 75 mg PO DAILY Print Language: [place] Instructions: Diabetic Hyperglycemia (ED) Referrals: Physician,Non-Staff, MD [Primary Care Provider] - 1 week
--- NOTE | 2024-03-24 15:27 | SWNOTE1 ---
KAREEM received call from ED doctor. Per patient she signed herself out again and has not taken meds. SW to see if she can go back to [place]. KAREEM called and spoke with Ashley. Pt did not sign herself out this time. They did a home program with her and she went home for 2 days and had to check back in and they would make sure her labs/vitals were ok. She left [place] on the . Ashley has to check with Emy, the DON, to see if they can accept her back. KAREEM updated Dr Edgar, he is going to speak with doctor.
--- OUTSIDE RECORDS SUMMARY | 2024-03-24 15:29 | XMS_ITS | CCD ---
Author Organization [facility] Care Team Providers Care Senior Oracle Database Developer Name Role Phone CAMERON LAURENT Unavailable Unavailable CAMERON LAURENT Unavailable Unavailable PETER SANTOS Unavailable Unavailable Peter Santos Primary Care Provider UnavailLatasha Rosario Attending Provider Unavailable YRIS QUAN Attending Unavailable PETER SANTOS Primary Care Unavailable REINALDO MARLOW Referring Unavailable RAYA, HANI Admitting Unavailable ADELINAPETE GavinFANY Admitting Unavailable PETE SAHUISSA Attending Unavailable DR [...] MARLOW Attending Unavailable REINALDO MARLOW Admitting Unavailable RICHI, REINALDO Consulting Unavailable DR PETER SANTOS Primary Care Unavailable DOTSON, FABIOLA Consulting Unavailable JAZMINDILEEP Consulting Unavailable MARIA D EVANS Consulting Unavailable MARKER ., DR SIMON Consulting Unavailable MARKER ., DR SIMON Attending Unavailable MARKER ., DR SIMON Admitting Unavailable SANTOS, DR SHAH Primary Care Unavailable TROERNESTINE, EDY Consulting Unavailable SCHREJONNA, ELIAN Consulting Unavailable NEFCY, LILLIE Consulting Unavailable DERROW, YAZAN Consulting Unavailable ESCOBAR ., CECILIA Attending Unavailable ESCOBAR ., CECILIA Admitting Unavailable JUDE, DR SHAH Primary Care Unavailable ESCOBAR ., CECILIA Consulting Unavailable ERNIE NIELSEN Consulting Unavailable COATSJOSEPH Consulting Unavailable SANTOS, DR SHAH Primary Care Unavailable HEMMER, DR JAROCHO Fagan Admitting Unavailable HEMMER, DR JAROCHO Fagan Attending Unavailable FANY SAHU Consulting Unavailable JUDE, DR SHAH Primary Care Unavailable FANY SAHU Attending Unavailable ADELINA, FANY Admitting Unavailable SANTOS, DR SHAH Primary Care Unavailable REINALDO MARLOW Consulting Unavailable FAWWAShanae, H Admitting Unavailable SHAIKH DUMONT H Attending Unavailable MAURI, FABIOLA Consulting Unavailable NIELSENERNIE Gavin Consulting Unavailable FAWWAShanae, H Consulting Unavailable NADERER, DR IGGY Haji Consulting Unavailable NADERER, DR IGGY Haji Attending Unavailable NADERER, DR IGGY Haji Admitting Unavailable JUDE, DR SHAH Primary Care Unavailable LEDEZMA, PATRICIA Consulting Unavailable DIAB ., JUAN ALBERTO Consulting Unavailable Sonya Posada CNP Attending Unavailable SONYA POSADA Referring Unavailable PETER SANTOS Primary Care Unavailable Sonya Posada CNP Primary Care Provider [phone] Carlo MONTERROSO - Sonya DAVIS Primary Care Provider Amanda MEASURER MACHINE-GEORGINA Dailey Attending Provider [phone] FANY SAHU Attending Unavailable CHANDNI GREEN Referring Unavailable IRINEO, DANIEL HALL Admitting Unavailab le WALIANI, YRIS Attending Unavailable KERA, EHAB Attending Unavailable IRINEO, DANIEL HALL Referring Unavailab [...] / HYDROcodone Drug Allergy 3 Nausea [facility] Repository (2 sources) Adhesive agent; Translations: [ADHESIVE] Propensity to adverse reactions (disorder) 7 [facility] (1 source) PLASTIC BANDAGE TAMARA Drug allergy (disorder) 9 [facility] Rep[facility] (2 sources) Adhesive bandage Drug allergy (disorder) 3 [facility] Repository (4 sources) Adhesive Tape Allergy to substance 3 [facility] (4 sources) Bandaids Allergy to substance 3 [facility] (2 sources) Acetaminophen / HYDROcodone; Translations: [HYDROCODONE-ACET AMINOPHEN] Drug Allergy 7 Nausea And Vomiting [facility] (1 source) HYDROcodone; Translations: [HYDROCODONE BITARTRATE] Drug Allergy 1 [facility] Repository NEGATED: Highlighted row has been ruled out! (1 source) Other Propensity to adverse reactions 7 [facility] Medications Current Medications Medication Drug Class(es) Dates [...] disease (5 sources) Atherosclerotic heart disease of [place] coronary artery without angina pectoris; Translations: [Coronary [...] Onset: 11-15-2022 Chronic Other aftercare (1 source) custodial (current) use of insulin; Translations: [BURRER MARKER AXLE CURRENT USE OF INSULIN] Onset: 01-14-2023 Episodic Other aftercare (1 source) Other custodial (current) drug therapy; Translations: [OTH [facility]DC CURRENT DRUG THERAPY] Onset: 01-14-2023 Episodic Other aftercare (1 source) 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; Translations: [BURRER MARKER AXLE CURRENT USE OF ASPIRIN] Onset: 11-15-2022 Episodic Other aftercare (1 source) custodial (current) use of oral hypoglycemic drugs; Translations: [BURRER MARKER AXLE USE ORAL HYPOGLYCEMIC DX] Onset: 11-15-2022 Episodic [...] Range Facility Office Visiton 06-12-2023 Follow-up visit [id number] Rylan Blanc 1955 F Date Provider Department Center 06/12/2023 [facility] No family history on file Level of Service:26252 [place] OFFICE/OUTPATIENT ESTABLISHED MOD MDM 30-39 MIN Normal [facility] Basic Metabolic Panelon 04-24 Anion gap [Moles/Vol] 15.7 mmol/L High 6.0-15.0 [facility] Comment on above: Performed By: #### B MP #### [facility] [address] Calcium [Mass/Vol] 9.2 mg/dL Normal 8.6-10.3 [facility] Comment on above: Result Comment: PERF ORMED BY: [place] [address] PATHOLOGIST QUALITY CONTROL SPECIALIST WEN LOBO M.D. Performed By: #### B MP #### [place] [address] [place] Chloride [Moles/Vol] 107 mmol/L Normal 98-107 [facility] Comment on above: Performed By: #### B MP #### [address] CO2 [Moles/Vol] 20.2 mmol/L Low 21.0-31.0 [facility] Comment on above: Performed By: #### B MP #### [address] Creatinine [Mass/Vol] 1.02 mg/dL Normal 0.60-1.20 [facility] Comment on above: Performed By: #### B MP #### [place] [address] [place] GFR/1.73 sq M.predicted MDRD (S/P/Bld) [Vol rate/Area] mL/min/{1.73_m2} Normal [facility] Comment on above: Performed By: #### B MP #### [place] [address] [place] Glucose [Mass/Vol] 178 mg/dL High 70-100 [facility] Comment on above: Result Comment: [place] Glucose Reference Range is dependent on time and content of last meal. Glucose of more than 200 mg/dL in a nonstressed, ambulatory subject supports the diagnosis of Diabetes Mellitus. ADA recommended reference range Performed By: #### B MP #### [address] Potassium [Moles/Vol] 4.9 mmol/L Normal 3.5-5.1 [facility] Comment on above: Performed By: #### B MP #### [place] [address] [place] Sodium [Moles/Vol] 138 mmol/L Normal 136-145 [facility] Comment on above: Performed By: #### B MP #### [facility] [address] [place] [address] [place] Urea nitrogen [Mass/Vol] 23 mg/dL Normal 7-25 [facility] Comment on above: Performed By: #### B MP #### [facility] [address] [place] [address] [place] Calcium [Mass/volume] in Ser um or PlasmaOrdered By: Angy Patel on 05-14-2023 Calcium [Mass/Vol] 9.2 mg/dL 8.6-10.3 [facility] Carbon dioxide, total [Moles /volume] in Serum or PlasmaOrdered By: Angy Patel on 05-14-2023 CO2 [Moles/Vol] 20.2 mmol/L 21.0-31.0 [facility] Chloride [Moles/volume] in S elizabeth or PlasmaOrdered By: Angy Patel on 05-14-2023 Chloride [Moles/Vol] 107 mmol/L 98-107 [facility] Creatinine [Mass/volume] in Serum or PlasmaOrdered By: Angy Patel on 05-14-2023 Creatinine [Mass/Vol] 1.02 mg/dL 0.60-1.20 [facility] Glucose [Mass/volume] in Ser um or PlasmaOrdered By: Angy Patel on 05-14-2023 Glucose [Mass/Vol] 178 mg/dL 70-100 [facility] Comment on above: ADA recommended refe rence rangeRandom Glucose Reference Range is dependent on time and content of last meal. Glucose of more than 200 mg/dL in a nonstressed, ambulatory subject supports the diagnosis of Diabetes Mellitus. No Panel InformationOrdered By: Angy Patel on 05-14-2023 Estimated GFR (CKD-EPI) > 60.0 mL/Min [facility] Creatinine Clearance (Chem N/A [facility] Potassium [Moles/volume] in Serum or PlasmaOrdered By: Angy Patel on 05-14-2023 Potassium [Moles/Vol] 4.9 mmol/L 3.5-5.1 [facility] Serum or plasma anion gap de terminationOrdered By: Angy Patel on 05-14-2023 Anion gap [Moles/Vol] 15.7 mmol/L 6.0-15.0 [facility] Sodium [Moles/volume] in Ser um or PlasmaOrdered By: Angy Patel on 05-14-2023 Sodium [Moles/Vol] 138 mmol/L 136-145 [facility] Urea nitrogen [Mass/volume] in Serum or PlasmaOrdered By: Angy Patel on 05-14-2023 Urea nitrogen [Mass/Vol] 23 mg/dL 7-25 [facility] 30on 05-06-2023 30 The patient is Moder ately Stable - Low risk of patient condition declining or worsening The patient's goals for the shift include Rest/Comfort The clinical goals for the shift include VSS and Discharge Planning Patient is being discharged [facility]. Attempted to call report but got a voicemail for [place]. Left my name and phone number. Will attempt to call back in 30 minutes. Report was given to [place]. [facility] 30 Daily Case Managemen t Update Multidisciplinary rounds have been completed. Barriers to Discharge: Awaiting pre-cert to [facility]. Diet: Dietary Orders (From admission, onward) Start [...] OT Six Click Score: 18 PT Recommendations: [facility]itentiary facility placement OT Recommendations: penitentiary facility placement New Consults: Consult Orders (From admission, onward) Start Ordered 04/26/23 1357 Inpatient consult to Cardiology Once Specialty: Cardiology Provider: (Not yet assigned) Question Answer Comment Consulting Group CARDIOLOGY TEAM Reason for Consult? NSTEMI, direct transfer, communicated earlier MOLD STAMPER, on heparin gtt Level of Consultation Consultation and Management 04/26/23 1357 Therapy Orders (From admission, onward) Start Ordered 04/27/23 1307 PT eval and treat Until therapy completed Question: Reason for PT? Answer: eval 04/27/23 1306 04/27/23 1307 OT eval and treat Until therapy completed Question: Reason for OT? Answer: eval 04/27/23 1306 Normal [facility] 30 The patient is Moder ately Stable - Low risk of patient condition declining or worsening The patient's goals for the shift include TED The clinical goals for the shift include VSS Pt alert but confused. Able to feed self with set up. Incontinent of bowel/bladder. Awaiting SNF placement. Normal [facility] POCT GLUCOSE METER UNSOLICIT ED RESULTSon 05-06-2023 Glucose [Mass/Vol] 237 mg/dL High 70-105 [facility] Comment on above: Order Comment: Waive d Testing in the ED is performed under the ED CLIA certificate #[id number]. Result Comment: [email or web address] Performed By: #### L [id number] #### [facility] ([facility]) [address] [place] [address] Glucose [Mass/Vol] 137 mg/dL High 70-105 [facility] Comment on above: Order Comment: Waive d Testing in the ED is performed under the ED CLIA certificate #[id number]. Result Comment: [email or web address] [email or web address] Performed By: #### L [id number] #### [facility] ([facility]) [address] [place] [address] 30on 05-05-2023 30 The patient is Moder [...] and behaviors that affect risk of falls [place] fall precautions as indicated by assessment Educate [...] (Taken 05/05/2023729) (more content not included)... Normal [facility] POCT GLUCOSE METER UNSOLICIT ED RESULTSon 05-05-2023 Glucose [Mass/Vol] 261 mg/dL High 70-105 [facility] Comment on above: Order Comment: Waive d Testing in the ED is performed under the ED CLIA certificate #[id number]. Result Comment: [email or web address] Performed By: #### L [id number] #### [facility] ([facility]) [address] [place] [address] Glucose [Mass/Vol] 136 mg/dL High 70-105 [facility] Comment on above: Order Comment: Waive d Testing in the ED is performed under the ED CLIA certificate #[id number]. Result Comment: [email or web address] Performed By: #### L [id number] ####[facility] ([facility])[address] [place] [address] Glucose [Mass/Vol] 255 mg/dL High 70-105 [facility] Comment on above: Order Comment: Waive d Testing in the ED is performed under the ED CLIA certificate #[id number]. Result Comment: [email or web address] Performed By: #### L [id number] #### [facility] ([facility]) [address] [place] [address] Glucose [Mass/Vol] 194 mg/dL High 70-105 [facility] Comment on above: Order Comment: Waive d Testing in the ED is performed under the ED CLIA certificate #[id number]. Result Comment: [email or web address] Performed By: #### L [id number] #### [facility] ([facility]) [address] [facility] [place] [address] 30on 05-04-2023 30 The patient is Moder [...] and behaviors that affect risk of falls [place] fall precautions as indicated by assessment Educate [...] and prevent overall improvement and discharge Normal [facility] 30 The patient is Moder ately [...] Adilson Gallo RN Outcome: Progressing Flowsheets (Taken 05/04/202310) Verbalizes/displays adequate comfort level or baseline comfort [...] and behaviors that affect risk of falls [place] fall precautions as indicated by assessment Educate [...] and behaviors that affect risk of falls [place] fall precautions as indicated by assessment Educate [...] by Dominick Velázquez (more content not included)... [facility] BASIC METABOLIC PANELon 08- Anion gap [Moles/Vol] 10 mmol/L Normal 7-20 [facility] Comment on above: Performed By: #### L [id number] #### [facility] ([facility]) [address] [place] [address] Calcium [Mass/Vol] 9.4 mg/dL Normal 8.6-10.3 [facility] Comment on above: Performed By: #### L [id number] #### [facility] ([facility]) [address] [place] [address] Chloride [Moles/Vol] 108 mmol/L High 98-107 [facility] Comment on above: Performed By: #### L [id number] #### [facility] ([facility]) [address] [place] [address] CO2 [Moles/Vol] 24 mmol/L Normal 21-[address] [facility] Comment on above: Performed By: #### L [id number] #### [facility] ([facility]) [address] [place] [address] Creatinine [Mass/Vol] 0.82 mg/dL Normal 0.60-1.20 [facility] Comment on above: Performed By: #### L [id number] #### [facility] ([facility]) [address] [place] [address] GLOMERULAR FILTRATION RATE ML/MIN/1.73 SQ M.PREDICTED 78.4 mL/min/1.73m*2 Normal >60.0 [facility] Comment on above: Result Comment: [facility]???s estimated glomerular filtration rate (eGFR) will [...] individuals. Performed By: #### L [id number] #### [facility] ([facility]) [address] [place] [address] Glucose [Mass/Vol] 75 mg/dL Normal 70-100 [facility] Comment on above: Performed By: #### L [id number] #### [facility] ([facility]) [address] [place] [address] Potassium [Moles/Vol] 4.0 mmol/L Normal 3.5-5.1 [facility] Comment on above: Performed By: #### L [id number] #### [facility] ([facility]) [address] [place] [address] Sodium [Moles/Vol] 138 mmol/L Normal 136-145 [facility] Comment on above: Performed By: #### L [id number] #### [facility] ([facility]) [address] [place] [address] Urea nitrogen [Mass/Vol] 18 mg/dL Normal 7-25 [facility] Comment on above: Performed By: #### L [id number] #### [facility] ([facility]) [address] [place] [address] UREA NITROGEN/CREATININE (MASS RATIO) IN SER/PLAS 22.0 Normal [facility] Comment on above: Performed By: #### L [id number] #### [facility] ([facility]) [address] [place] [address] CBCon 05-04-2023 Erythrocyte distribution width (RBC) [Ratio] 13.7 % Normal 11.5-15.0 [facility] Comment on above: Performed By: #### L [id number] #### [facility] ([facility]) [address] [place] [address] ERYTHROCYTE MEAN CORPUSCULAR HEMOGLOBIN CONCENTRATION (G/DL) BY AUTOMATED 32.7 g/dL Normal 32.0-35.0 [facility] Comment on above: Performed By: #### L [id number] #### [facility] ([facility]) [address] [place] [address] Hematocrit (Bld) [Volume fraction] 39.7 % Normal 36.0-48.0 [facility] Comment on above: Performed By: #### L [id number] #### [facility] ([facility]) [address] [place] [address] Hemoglobin (Bld) [Mass/Vol] 13.0 g/dL Normal 12.0-15.0 [facility] Comment on above: Performed By: #### L [id number] #### [facility] ([facility]) [address] [place] [address] MCH (RBC) [Entitic mass] 28.3 pg Normal 27.0-33.0 [facility] Comment on above: Performed By: #### L [id number] #### [facility] ([facility]) [address] [place] [address] MCV (RBC) [Entitic vol] 86.3 fL Normal 82.0-98.0 [facility] Comment on above: Performed By: #### L [id number] #### [facility] ([facility]) [address] [place] [address] PLATELETS (10*3/UL) IN BLOOD AUTOMATED COUNT 383 10*3/uL Normal 150-400 [facility] Comment on above: Performed By: #### L [id number] #### [facility] ([facility]) [address] [place] [address] RBC (Bld) [#/Vol] 4.60 10*6/uL Normal 3.80-5.00 [facility] Comment on above: Performed By: #### L [id number] #### [facility] ([facility]) [address] [place] [address] WBC (Bld) [#/Vol] 8.84 10*3/uL Normal 4.00-10.60 [facility] Comment on above: Performed By: #### L [id number] #### [facility] ([facility]) [address] [place] [address] MAGNESIUMon 05-04-2023 Magnesium [Mass/Vol] 1.5 mg/dL Low 1.9-2.7 [facility] Comment on above: Performed By: #### L [id number] #### [facility] ([facility]) [address] [place] [address] POCT GLUCOSE METER UNSOLICIT ED RESULTSon 05-04-2023 Glucose [Mass/Vol] 181 mg/dL High 70-105 [facility] Comment on above: Order Comment: Waive d Testing in the ED is performed under the ED CLIA certificate #[id number]. Result Comment: [email or web address] Performed By: #### L [id number] #### [facility] ([facility]) [address] [place] [address] Glucose [Mass/Vol] 141 mg/dL High 70-105 [facility] Comment on above: Order Comment: Waive d Testing in the ED is performed under the ED CLIA certificate #[id number]. Result Comment: [email or web address] Performed By: #### L [id number] #### [facility] ([facility]) [address] [place] [address] Glucose [Mass/Vol] 189 mg/dL High 70-105 [facility] Comment on above: Order Comment: Waive d Testing in the ED is performed under the ED CLIA certificate #[id number]. Result Comment: [email or web address] Performed By: #### L [id number] #### [facility] ([facility]) [address] [place] [address] Glucose [Mass/Vol] 84 mg/dL Normal 70-105 [facility] Comment on above: Order Comment: Waive d Testing in the ED is performed under the ED CLIA certificate #[id number]. Result Comment: [email or web address] Performed By: #### L [id number] #### [facility] ([facility]) [address] [place] [address] TROPONIN Ion 05-04-2023 Troponin I.cardiac [Mass/Vol] 0.04 ng/mL Normal 0.00-0.04 [facility] Comment on above: Performed By: #### L [id number] #### [facility] ([facility]) [address] [place] [address] 30on 05-03-2023 30 The patient is Moder [...] and behaviors that affect risk of falls [place] fall precautions as indicated by assessment Educate [...] or improved Outcome: Progressing Flowsheets (Taken 05/03/2023 0800 by Sharon Aranda RN) Care Plan - [...] and prevent overall improvement and discharge Normal [facility] 30 The patient is Moder ately Stable - Low risk of patient condition declining or worsening The patient's goals for the shift include comfort The clinical goals for the shift include safety/VSS/heart cath Problem: Pain - Adult Goal: Verbalizes/displays adequate comfort level or baseline comfort level Outcome: Progressing Flowsheets (Taken 05/03/2023 08) Verbalizes/displays adequate comfort level or baseline comfort [...] and behaviors that affect risk of falls [place] fall precautions as indicated by assessment Educate [...] Progressing Flowshe (more content not included)... Normal [facility] 30 Daily Case Managemen t Update Multidisciplinary rounds have been completed. 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 cath today Diet: Dietary Orders (From admission, onward) Start Ordered 05/03/23901 Diet NPO Diet effective now Comments: Sips with medications 05/03/23901 Physician Expected Discharge Date: 05/04/2023 Discharge Delays: Awaiting accepting facility [113] Waiting on discharge facility authorization [108] PT Six Click Score: 16 OT Six Click Score: 15 PT Recommendations: penitentiary facility placement OT Recommendations: penitentiary facility placement New Consults: Consult Orders (From admission, onward) Start Ordered 04/26/23 1357 Inpatient consult to Cardiology Once Specialty: Cardiology Provider: (Not yet assigned) Question Answer Comment Consulting Group CARDIOLOGY TEAM Reason for Consult? NSTEMI, direct transfer, communicated earlier MOLD STAMPER, on heparin gtt Level of Consultation Consultation and Management 04/26/23 1357 Therapy Orders (From admission, onward) Start Ordered 04/27/23 1307 PT eval and treat Until therapy completed Question: Reason for PT? Answer: eval 04/27/23 1306 04/27/23 1307 OT eval and treat Until therapy completed Question: Reason for OT? Answer: eval 04/27/23 1306 Normal [facility] 30 The patient is Moder ately [...] and behaviors that affect risk of falls [place] fall precautions as indicated by assessment Educate [...] and prevent overall improvement and discharge Normal [facility] CBCon 05-03-2023 Erythrocyte distribution width (RBC) [Ratio] 13.5 % Normal 11.5-15.0 [facility] Comment on above: Performed By: #### L [id number] #### [facility] ([facility]) [address] [place] [address] ERYTHROCYTE MEAN CORPUSCULAR HEMOGLOBIN CONCENTRATION (G/DL) BY AUTOMATED 32.0 g/dL Normal 32.0-35.0 [facility] Comment on above: Performed By: #### L [id number] #### [facility] ([facility]) [address] [place] [address] Hematocrit (Bld) [Volume fraction] 40.6 % Normal 36.0-48.0 [facility] Comment on above: Performed By: #### L [id number] #### [facility] ([facility]) [address] [place] [address] Hemoglobin (Bld) [Mass/Vol] 13.0 g/dL Normal 12.0-15.0 [facility] Comment on above: Performed By: #### L [id number] #### [facility] ([facility]) [address] [place] [address] MCH (RBC) [Entitic mass] 27.9 pg Normal 27.0-33.0 [facility] Comment on above: Performed By: #### L [id number] #### [facility] ([facility]) [address] [place] [place] [address] MCV (RBC) [Entitic vol] 87.1 fL Normal 82.0-98.0 [facility] Comment on above: Performed By: #### L [id number] #### [facility] ([facility]) [address] [place] [address] PLATELETS (10*3/UL) IN BLOOD AUTOMATED COUNT 298 10*3/uL Normal 150-400 [facility] Comment on above: Performed By: #### L [id number] #### [facility] ([facility]) [address] [place] [address] RBC (Bld) [#/Vol] 4.66 10*6/uL Normal 3.80-5.00 [facility] Comment on above: Performed By: #### L [id number] #### [facility] ([facility]) [address] [place] [address] WBC (Bld) [#/Vol] 7.80 10*3/uL Normal 4.00-10.60 [facility] Comment on above: Performed By: #### L [id number] #### [facility] ([facility]) [address] [place] [address] POCT GLUCOSE METER UNSOLICIT ED RESULTSon 05-03-2023 Glucose [Mass/Vol] 87 mg/dL Normal 70-105 [facility] Comment on above: Order Comment: Basel ine aPTT before initiating heparin infusion. Result Comment: [email or web address] Performed By: #### L [id number] #### [facility] ([facility]) [address] [place] [address] Glucose [Mass/Vol] 366 mg/dL High 70-105 [facility] Comment on above: Order Comment: Waive d Testing in the ED is performed under the ED CLIA certificate #[id number]. Result Comment: [email or web address] Performed By: #### L [id number] #### [facility] ([facility]) [address] [place] [address] Glucose [Mass/Vol] 236 mg/dL High 70-105 [facility] Comment on above: Order Comment: Waive d Testing in the ED is performed under the ED CLIA certificate #[id number]. Result Comment: [email or web address] [email or web address] Performed By: #### L [id number] ####[facility] ([facility])[address] [place] [address] Glucose [Mass/Vol] 161 mg/dL High 70-105 [facility] Comment on above: Order Comment: Waive d Testing in the ED is performed under the ED CLIA certificate #[id number]. Result Comment: [email or web address] [email or web address] Performed By: #### L [id number] ####[facility] ([facility])[address] [place] [address] 30on 05-02-2023 30 The patient is Moder [...] urinary retention Outcome: Adequate for Discharge Normal [facility] BASIC METABOLIC PANELon 08- Anion gap [Moles/Vol] 11 mmol/L Normal 7-20 [facility] Comment on above: Performed By: #### L [id number] #### [facility] ([facility]) [address] [place] [address] Calcium [Mass/Vol] 9.3 mg/dL Normal 8.6-10.3 [facility] Comment on above: Performed By: #### L [id number] #### [facility] ([facility]) [address] [place] [address] Chloride [Moles/Vol] 108 mmol/L High 98-107 [facility] Comment on above: Performed By: #### L [id number] #### [facility] ([facility]) [address] [place] [address] CO2 [Moles/Vol] 26 mmol/L Normal 21-[address] [facility] Comment on above: Performed By: #### L [id number] #### [facility] ([facility]) [address] [place] [address] Creatinine [Mass/Vol] 0.88 mg/dL Normal 0.60-1.20 [facility] Comment on above: Performed By: #### L [id number] #### [facility] ([facility]) [address] [place] [address] GLOMERULAR FILTRATION RATE ML/MIN/1.73 SQ M.PREDICTED 72.0 mL/min/1.73m*2 Normal >60.0 [facility] Comment on above: Result Comment: [facility]???s estimated glomerular filtration rate (eGFR) will [...] group of individuals. Performed By: #### L [id number] #### [facility] ([facility]) [address] [place] [address] Glucose [Mass/Vol] 197 mg/dL High 70-100 [facility] Comment on above: Performed By: #### L [id number] #### [facility] ([facility]) [address] [place] [address] Potassium [Moles/Vol] 3.9 mmol/L Normal 3.5-5.1 [facility] Comment on above: Performed By: #### L [id number] #### [facility] ([facility]) [address] [place] [address] Sodium [Moles/Vol] 141 mmol/L Normal 136-145 [facility] Comment on above: Performed By: #### L [id number] #### [facility] ([facility]) [address] [place] [address] Urea nitrogen [Mass/Vol] 24 mg/dL Normal 7-25 [facility] Comment on above: Performed By: #### L [id number] #### [facility] ([facility]) [address] [place] [address] UREA NITROGEN/CREATININE (MASS RATIO) IN SER/PLAS 27.3 Normal [facility] Comment on above: Performed By: #### L [id number] #### [facility] ([facility]) [address] [place] [address] MAGNESIUMon 05-02-2023 Magnesium [Mass/Vol] 1.5 mg/dL Low 1.9-2.7 [facility] Comment on above: Performed By: #### L [id number] ####[facility] ([facility])[address] [facility] [place] [address] POCT GLUCOSE METER UNSOLICIT ED RESULTSon 05-02-2023 Glucose [Mass/Vol] 204 mg/dL High 70-105 [facility] Comment on above: Order Comment: Basel ine aPTT before initiating heparin infusion. Result Comment: [email or web address] Performed By: #### L [id number] #### [facility] ([facility]) [address] [place] [address] Glucose [Mass/Vol] 372 mg/dL High 70-105 [facility] Comment on above: Order Comment: Waive d Testing in the ED is performed under the ED CLIA certificate #[id number]. Result Comment: [email or web address] Performed By: #### L [id number] #### [facility] ([facility]) [address] [place] [address] Glucose [Mass/Vol] 338 mg/dL High 70-105 [facility] Comment on above: Order Comment: Waive d Testing in the ED is performed under the ED CLIA certificate #[id number]. Result Comment: [email or web address] [email or web address] Performed By: #### L [id number] #### [facility] ([facility]) [address] [place] [address] Glucose [Mass/Vol] 144 mg/dL High 70-105 [facility] Comment on above: Order Comment: Waive d Testing in the ED is performed under the ED CLIA certificate #[id number]. Result Comment: [email or web address] [email or web address] Performed By: #### L [id number] #### [facility] ([facility]) [address] [place] [address] 30on 05-01-2023 30 Daily Case Managemen t [...] OT Six Click Score: 15 PT Recommendations: penitentiary facility placement OT Recommendations: penitentiary facility placement New Consults: Consult Orders (From admission, onward) Start Ordered 04/26/23 1357 Inpatient consult to Cardiology Once Specialty: Cardiology Provider: (Not yet assigned) Question Answer Comment [employer] Group CARDIOLOGY TEAM Reason for Consult? NSTEMI, direct transfer, communicated earlier MOLD STAMPER, on heparin gtt Level of Consultation Consultation [...] for OT? Answer: eval 04/27/23 1306 Normal [facility] 30 The patient is Moder ately [...] Absence of urinary retention Outcome: Progressing Normal [facility] BASIC METABOLIC PANELon 08-0 Anion gap [Moles/Vol] 11 mmol/L Normal 7-20 [facility] Comment on above: Performed By: #### L [id number] #### [facility] ([facility]) [address] [place] [address] Calcium [Mass/Vol] 9.1 mg/dL Normal 8.6-10.3 [facility] Comment on above: Performed By: #### L [id number] #### [facility] ([facility]) [address] [place] [address] Chloride [Moles/Vol] 108 mmol/L High 98-107 [facility] Comment on above: Performed By: #### L [id number] #### [facility] ([facility]) [address] [place] [address] CO2 [Moles/Vol] 23 mmol/L Normal 21-[address] [facility] Comment on above: Performed By: #### L [id number] #### [facility] ([facility]) [address] [place] [address] Creatinine [Mass/Vol] 0.76 mg/dL Normal 0.60-1.20 [facility] Comment on above: Performed By: #### L [id number] #### [facility] ([facility]) [address] [place] [address] GLOMERULAR FILTRATION RATE ML/MIN/1.73 SQ M.PREDICTED 85.8 mL/min/1.73m*2 Normal >60.0 [facility] Comment on above: Result Comment: [facility]???s estimated glomerular filtration rate (eGFR) will [...] individuals. Performed By: #### L [id number] #### [facility] ([facility]) [address] [place] [address] Glucose [Mass/Vol] 204 mg/dL High 70-100 [facility] Comment on above: Performed By: #### L [id number] #### [facility] ([facility]) [address] [place] [address] Potassium [Moles/Vol] 4.1 mmol/L Normal 3.5-5.1 [facility] Comment on above: Performed By: #### L [id number] #### [facility] ([facility]) [address] [place] [address] Sodium [Moles/Vol] 138 mmol/L Normal 136-145 [facility] Comment on above: Performed By: #### L [id number] #### [facility] ([facility]) [address] [place] [address] Urea nitrogen [Mass/Vol] 26 mg/dL High 7-25 [facility] Comment on above: Performed By: #### L [id number] #### [facility] ([facility]) [address] [place] [address] UREA NITROGEN/CREATININE (MASS RATIO) IN SER/PLAS 34.2 Normal [facility] Comment on above: Performed By: #### L [id number] #### [facility] ([facility]) [address] [place] [address] CBCon 05-01-2023 Erythrocyte distribution width (RBC) [Ratio] 13.2 % Normal 11.5-15.0 [facility] Comment on above: Performed By: #### L [id number] ####[facility] ([facility])[address] [place] [address] ERYTHROCYTE MEAN CORPUSCULAR HEMOGLOBIN CONCENTRATION (G/DL) BY AUTOMATED 33.0 g/dL Normal 32.0-35.0 [facility] Comment on above: Performed By: #### L [id number] ####[facility] ([facility])[address] [place] [address] Hematocrit (Bld) [Volume fraction] 39.4 % Normal 36.0-48.0 [facility] Comment on above: Performed By: #### L [id number] ####[facility] ([facility])[address] [place] [address] Hemoglobin (Bld) [Mass/Vol] 13.0 g/dL Normal 12.0-15.0 [facility] Comment on above: Performed By: #### L [id number] ####[facility] ([facility])[address] [place] [address] MCH (RBC) [Entitic mass] 28.0 pg Normal 27.0-33.0 [facility] Comment on above: Performed By: #### L [id number] ####[facility] ([facility])[address] [place] [address] MCV (RBC) [Entitic vol] 84.9 fL Normal 82.0-98.0 [facility] Comment on above: Performed By: #### L [id number] ####[facility] ([facility])[address] [place] [address] PLATELETS (10*3/UL) IN BLOOD AUTOMATED COUNT 341 10*3/uL Normal 150-400 [facility] Comment on above: Performed By: #### L [id number] ####[facility] ([facility])[address] [place] [address] RBC (Bld) [#/Vol] 4.64 10*6/uL Normal 3.80-5.00 [facility] Comment on above: Performed By: #### L [id number] ####[facility] ([facility])[address] [place] [address] WBC (Bld) [#/Vol] 7.98 10*3/uL Normal 4.00-10.60 [facility] Comment on above: Performed By: #### L [id number] ####[facility] ([facility])[address] [place] [address] HPon 05-01-2023 HP ------ -- Attestation signed by Gaby Sanchez MD at 05/01/2023 3:08 PM Due to worsening in the patient's mental status, the cardiac catheterization will be deferred at this juncture. Decisions regarding timing will need to be made on a day-to-day basis. Gaby Sanchez MD, MPH, [facility], [facility], [facility] Interventional Cardiology Pager Email: [email or web address] -- H&P reviewed. The patient was examined and there are no changes to the H&P. Patient with NSTEMI vs Type II OK and new reduction of EF (45% to 30%). Peak troponin 2.4. Plan for coronary angiography today. Normal [facility] MAGNESIUMon 05-01-2023 Magnesium [Mass/Vol] 1.3 mg/dL Low 1.9-2.7 [facility] Comment on above: Performed By: #### L [id number] #### [facility] ([facility]) [address] [place] [address] NURSNOTEon 05-01-2023 NURSNOTE Patient had pulled h er IV out, marketing underwriter called the PICC-nurse to start a new one and patient tried to hit the PICC nurse and refused to get the IV. Dr. Quan is aware that patient is without an IV. [facility] NURSNOTE Patient has become m ore agitated and non-compliant with telemetry monitoring. She tried to hit the marketing underwriter and leave the room. Security was called and they helped the patient back to bed and safety. Dr. Quan is notified and he is okay with patient not being monitored. [facility] is notified as well. [facility] POCT GLUCOSE METER UNSOLICIT ED RESULTSon 05-01-2023 Glucose [Mass/Vol] 241 mg/dL High 70-105 [facility] Comment on above: Order Comment: Waive d Testing in the ED is performed under the ED CLIA certificate #[id number]. Result Comment: atru ss Performed By: #### L [id number] #### [facility] ([facility]) [address] [facility] [place] [address] Glucose [Mass/Vol] 174 mg/dL High 70-105 [facility] Comment on above: Order Comment: Waive d Testing in the ED is performed under the ED CLIA certificate #[id number]. Result Comment: [email or web address] esn Performed By: #### L [id number] #### [facility] ([facility]) [address] [facility] [place] [address] Glucose [Mass/Vol] 211 mg/dL High 70-105 [facility] Comment on above: Order Comment: Waive d Testing in the ED is performed under the ED CLIA certificate #[id number]. Result Comment: [facility] [email or web address] Performed By: #### L [id number] #### [facility] ([facility]) [address] [facility] [place] [address] 30on 04-30-2023 30 Daily Case Managemen t [...] OT Six Click Score: 6 PT Recommendations: penitentiary facility placement OT Recommendations: penitentiary facility placement New Consults: Consult Orders (From admission, onward) Start Ordered 04/26/23 1357 Inpatient consult to Cardiology Once Specialty: Cardiology Provider: (Not yet assigned) Question Answer Comment Consulting Group CARDIOLOGY TEAM Reason for Consult? NSTEMI, direct transfer, communicated earlier MOLD STAMPER, on heparin gtt Level of Consultation Consultation [...] for OT? Answer: eval 04/27/23 1306 Normal [facility] 30 The patient is Moder ately [...] Absence of urinary retention Outcome: Progressing Normal [facility] 30 The patient is Moder ately [...] and oxygenation Outcome: Adequate for Discharge Normal [facility] BASIC METABOLIC PANELon 08-0 Anion gap [Moles/Vol] 11 mmol/L Normal 7-20 [facility] Comment on above: Performed By: #### L [id number] #### [facility] ([facility]) [address] [place] [address] Calcium [Mass/Vol] 9.3 mg/dL Normal 8.6-10.3 [facility] Comment on above: Performed By: #### L [id number] #### [facility] ([facility]) [address] [place] [address] Chloride [Moles/Vol] 108 mmol/L High 98-107 [facility] Comment on above: Performed By: #### L [id number] #### [facility] ([facility]) [address] [place] [address] CO2 [Moles/Vol] 29 mmol/L Normal 21-[address] [facility] Comment on above: Performed By: #### L [id number] #### [facility] ([facility]) [address] [place] [address] Creatinine [Mass/Vol] 0.82 mg/dL Normal 0.60-1.20 [facility] Comment on above: Performed By: #### L [id number] #### [facility] ([facility]) [address] [place] [address] GLOMERULAR FILTRATION RATE ML/MIN/1.73 SQ M.PREDICTED 78.4 mL/min/1.73m*2 Normal >60.0 [facility] Comment on above: Result Comment: [facility]???s estimated glomerular filtration rate (eGFR) will [...] group of individuals. Performed By: #### L [id number] #### [facility] ([facility]) [address] [place] [address] Glucose [Mass/Vol] 165 mg/dL High 70-100 [facility] Comment on above: Performed By: #### L [id number] #### [facility] ([facility]) [address] [place] [address] Potassium [Moles/Vol] 3.7 mmol/L Normal 3.5-5.1 [facility] Comment on above: Performed By: #### L [id number] #### [facility] ([facility]) [address] [place] [address] Sodium [Moles/Vol] 144 mmol/L Normal 136-145 [facility] Comment on above: Performed By: #### L [id number] #### [facility] ([facility]) [address] [place] [address] Urea nitrogen [Mass/Vol] 22 mg/dL Normal 7-25 [facility] Comment on above: Performed By: #### L [id number] #### [facility] ([facility]) [address] [place] [address] UREA NITROGEN/CREATININE (MASS RATIO) IN SER/PLAS 26.8 Normal [facility] Comment on above: Performed By: #### L [id number] #### [facility] ([facility]) [address] [place] [address] MAGNESIUMon 04-30-2023 Magnesium [Mass/Vol] 1.5 mg/dL Low 1.9-2.7 [facility] Comment on above: Performed By: #### L [id number] #### [facility] ([facility]) [address] [place] [address] POCT GLUCOSE METER UNSOLICIT ED RESULTSon 04-30-2023 Glucose [Mass/Vol] 202 mg/dL High 70-105 [facility] Comment on above: Order Comment: Waive d Testing in the ED is performed under the ED CLIA certificate #[id number]. Result Comment: [email or web address] Performed By: #### L [id number] #### [facility] ([facility]) [address] [place] [address] Glucose [Mass/Vol] 379 mg/dL High 70-105 [facility] Comment on above: Order Comment: Waive d Testing in the ED is performed under the ED CLIA certificate #[id number]. Result Comment: [facility] oy20 Performed By: #### L [id number] ####[facility] ([facility])[address] [place] [address] Glucose [Mass/Vol] 150 mg/dL High 70-105 [facility] Comment on above: Order Comment: Waive d Testing in the ED is performed under the ED CLIA certificate #[id number]. Result Comment: [facility] oy20 Performed By: #### L [id number] #### [facility] ([facility]) [address] [place] [address] Glucose [Mass/Vol] 156 mg/dL High 70-105 [facility] Comment on above: Order Comment: Waive d Testing in the ED is performed under the ED CLIA certificate #[id number]. Result Comment: [email or web address] [email or web address] Performed By: #### L [id number] #### [facility] ([facility]) [address] [place] [address] 30on 04-29-2023 30 Daily Case Managemen t [...] OT Six Click Score: 6 PT Recommendations: penitentiary facility placement OT Recommendations: penitentiary facility placement New Consults: Consult Orders (From [...] for Consult? NSTEMI, direct transfer, communicated earlier MOLD STAMPER, on heparin gtt Level of Consultation Consultation [...] for OT? Answer: eval 04/27/23 1306 Normal [facility] 30 Problem: Pain - Adul t [...] and behaviors that affect risk of falls [place] fall precautions as indicated by assessment Educate [...] and behaviors that affect risk of falls [place] fall precautions as indicated by assessment Educate [...] to preven (more content not included)... Normal [facility] BASIC METABOLIC PANELon 08-0 Anion gap [Moles/Vol] 15 mmol/L Normal 7-20 [facility] Comment on above: Performed By: #### L [id number] #### [facility] ([facility]) [address] [facility] [place] [address] Calcium [Mass/Vol] 9.1 mg/dL Normal 8.6-10.3 [facility] Comment on above: Performed By: #### L [id number] #### [facility] ([facility]) [address] [place] [address] Chloride [Moles/Vol] 106 mmol/L Normal 98-107 [facility] Comment on above: Performed By: #### L [id number] #### [facility] ([facility]) [address] [facility] [place] [address] CO2 [Moles/Vol] 22 mmol/L Normal 21-[address] [facility] Comment on above: Performed By: #### L [id number] #### [facility] ([facility]) [address] [facility] [place] [address] Creatinine [Mass/Vol] 0.74 mg/dL Normal 0.60-1.20 [facility] Comment on above: Performed By: #### L [id number] #### [facility] ([facility]) [address] [facility] [place] [address] GLOMERULAR FILTRATION RATE ML/MIN/1.73 SQ M.PREDICTED 88.6 mL/min/1.73m*2 Normal >60.0 [facility] Comment on above: Result Comment: [facility]???s estimated glomerular filtration rate (eGFR) will [...] group of individuals. Performed By: #### L [id number] #### [facility] ([facility]) [address] [place] [address] Glucose [Mass/Vol] 223 mg/dL High 70-100 [facility] Comment on above: Performed By: #### L [id number] #### [facility] ([facility]) [address] [facility] [place] [address] Potassium [Moles/Vol] 3.8 mmol/L Normal 3.5-5.1 [facility] Comment on above: Performed By: #### L [id number] #### [facility] ([facility]) [address] [facility] [place] [address] Sodium [Moles/Vol] 139 mmol/L Normal 136-145 [facility] Comment on above: Performed By: #### L [id number] #### [facility] ([facility]) [address] [place] [address] Urea nitrogen [Mass/Vol] 20 mg/dL Normal 7-25 [facility] Comment on above: Performed By: #### L [id number] #### [facility] ([facility]) [address] [place] [address] UREA NITROGEN/CREATININE (MASS RATIO) IN SER/PLAS 27.0 Normal [facility] Comment on above: Performed By: #### L [id number] #### [facility] ([facility]) [address] [place] [address] CBCon 04-29-2023 Erythrocyte distribution width (RBC) [Ratio] 13.2 % Normal 11.5-15.0 [facility] Comment on above: Performed By: #### L [id number] #### [facility] ([facility]) [address] [place] [address] ERYTHROCYTE MEAN CORPUSCULAR HEMOGLOBIN CONCENTRATION (G/DL) BY AUTOMATED 34.3 g/dL Normal 32.0-35.0 [facility] Comment on above: Performed By: #### L [id number] #### [facility] ([facility]) [address] [place] [address] Hematocrit (Bld) [Volume fraction] 38.2 % Normal 36.0-48.0 [facility] Comment on above: Performed By: #### L [id number] #### [facility] ([facility]) [address] [place] [address] Hemoglobin (Bld) [Mass/Vol] 13.1 g/dL Normal 12.0-15.0 [facility] Comment on above: Performed By: #### L [id number] #### [facility] ([facility]) [address] [place] [address] MCH (RBC) [Entitic mass] 28.5 pg Normal 27.0-33.0 [facility] Comment on above: Performed By: #### L [id number] #### [facility] ([facility]) [address] [place] [address] MCV (RBC) [Entitic vol] 83.2 fL Normal 82.0-98.0 [facility] Comment on above: Performed By: #### L [id number] #### [facility] ([facility]) [address] [place] [address] PLATELETS (10*3/UL) IN BLOOD AUTOMATED COUNT 305 10*3/uL Normal 150-400 [facility] Comment on above: Performed By: #### L [id number] #### [facility] ([facility]) [address] [place] [address] RBC (Bld) [#/Vol] 4.59 10*6/uL Normal 3.80-5.00 [facility] Comment on above: Performed By: #### L [id number] #### [facility] ([facility]) [address] [facility] [place] [address] WBC (Bld) [#/Vol] 7.42 10*3/uL Normal 4.00-10.60 [facility] Comment on above: Performed By: #### L [id number] #### [facility] ([facility]) [address] [place] [address] CONSULTon 04-29-2023 CONSULT ------ -- Attestation signed by Luis Alvarez DO at 05/01/2023 1:00 PM Agree with above, provisional diagnosis is delirium secondary to medical condition. -- PSYCHIATRIC INITIAL HISTORY AND PHYSICAL/CONSULT NOTE Kiara Blanc is a 68 y.o. female who presented on 04/26/2023 to [facility] from [facility] ([facility]) for acute NSTEMI. Psychiatry was consulted on 04/29/2023 for dementia and delirium. Legal guardian/Decision maker: Per patient, self. No assigned POA. Subjective: History of Present Illness: Patient is a 68-year-old female with an unknown psychiatric history and medical history of CAD, HLD, CAD, chronic diastolic HF w/ NYHA Class II, diabetes mellitus presented to [facility] as a direct transfer for cardiology service evaluation for acute NSTEMI. She was admitted initially at [facility] ([facility]) on 04/25/2023 after she was found [...] over 1000. She was subsequently transferred to [facility] for cardiac evaluation. She was started on [...] talk to , Mr. Cameron Blanc (ph: [phone]) at the patient's bedside. He called EMS [...] multiple hospitaliz (more content not included)... Normal [facility] HEPARIN LEVELon 04-29-2023 HEPARIN UNFRACTIONATED (U/ML) IN PPP BY CHROMOGENIC METHOD 0.26 IU/mL Low 0.3-0.7 [facility] Comment on above: Result Comment: [place] roxaban and Apixaban will interfere with the anti Xa assay used to monitor UFH and LMWH. Performed By: #### L [id number] ####[facility] ([facility])[address] [facility] [address] MAGNESIUMon 04-29-2023 Magnesium [Mass/Vol] 1.6 mg/dL Low 1.9-2.7 [facility] Comment on above: Performed By: #### L [id number] #### [facility] ([facility]) [address] [facility] [place] [address] NURSNOTEon 04-29-2023 NURSNOTE Pt at [facility]. Informed of most recent poc for his at this time. Informed Dr Talley and psychiatry of being present at bedside in order for them to involve in pt care. Psych states will come speak to . Normal [facility] POCT GLUCOSE METER UNSOLICIT ED RESULTSon 04-29-2023 Glucose [Mass/Vol] 209 mg/dL High 70-105 [facility] Comment on above: Order Comment: Waive d Testing in the ED is performed under the ED CLIA certificate #[id number]. Result Comment: [email or web address] Performed By: #### L [id number] ####[facility] ([facility])[address] [place] [address] Glucose [Mass/Vol] 210 mg/dL High 70-105 [facility] Comment on above: Order Comment: Waive d Testing in the ED is performed under the ED CLIA certificate #[id number]. Result Comment: [email or web address] [email or web address] Performed By: #### L [id number] ####[facility] ([facility])[address] [facility] [address] Glucose [Mass/Vol] 210 mg/dL High 70-105 [facility] Comment on above: Order Comment: Waive d Testing in the ED is performed under the ED CLIA certificate #[id number]. Result Comment: [email or web address] Performed By: #### L [id number] ####[facility] ([facility])[address] [place] [address] Glucose [Mass/Vol] 184 mg/dL High 70-105 [facility] Comment on above: Order Comment: Waive d Testing in the ED is performed under the ED CLIA certificate #[id number]. Result Comment: [email or web address] [email or web address] Performed By: #### L [id number] #### [facility] ([facility]) [address] [place] [address] TSH3 REFLEX TO FT4on 023 THYROTROPIN (MIU/L) IN SER/PLAS BY DETECTION LIMIT <= 0.05 MIU/L 1.24 mIU/L Normal 0.34-5.60 [facility] Comment on above: Performed By: #### L [id number] #### [facility] ([facility]) [address] [place] [address] URINALYSIS MICROSCOPIC WITH REFLEX CULTUREon 04-29-2023 CASTS IN URINE Normal [facility] Comment on above: Performed By: #### L [id number] #### [facility] ([facility]) [address] [place] [address] CRYSTALS IN URINE Normal [facility] Comment on above: Performed By: #### L [id number] #### [facility] ([facility]) [address] [place] [address] OTHER MICROSCOPIC ELEMENTS Normal [facility] Comment on above: Performed By: #### L [id number] #### [facility] ([facility]) [address] [place] [address] RBC (#/HPF) IN URINE SEDIMENT None Seen Normal None Seen [facility] Comment on above: Performed By: #### L [id number] #### [facility] ([facility]) [address] [place] [address] SQUAMOUS EPITHELIAL CELLS (#/HPF) IN URINE SEDIMENT Few Abnormal None Seen, Occasional [facility] Comment on above: Performed By: #### L [id number] #### [facility] ([facility]) [address] [place] [address] WBC (LEUKOCYTE) (#/HPF) IN URINE SEDIMENT 3-5 Abnormal None Seen [facility] Comment on above: Performed By: #### L [id number] #### [facility] ([facility]) [address] [place] [address] YEAST, BUDDING (#/HPF) IN URINE Many Abnormal None Seen [facility] Comment on above: Performed By: #### L [id number] #### [facility] ([facility]) [address] [place] [address] URINALYSIS WITH REFLEX CULTU REon 04-29-2023 BILIRUBIN, TOTAL PRESENCE IN URINE Negative Normal Negative [facility] Comment on above: Performed By: #### L [id number] #### [facility] ([facility]) [address] [place] [address] Clarity (U) Clear Normal Clear [facility] Comment on above: Performed By: #### L [id number] #### [facility] ([facility]) [address] [place] [address] Color (U) Yellow Normal Yellow [facility] Comment on above: Performed By: #### L [id number] #### [facility] ([facility]) [address] [place] [address] Glucose (U) [Mass/Vol] mg/dL Abnormal Negative [facility] Comment on above: Performed By: #### L [id number] #### [facility] ([facility]) [address] [place] [address] HEMOGLOBIN PRESENCE IN URINE Moderate Abnormal Negative [facility] Comment on above: Performed By: #### L [id number] #### [facility] ([facility]) [address] [place] [address] Ketones Ql (U) Trace Abnormal Negative [facility] Comment on above: Performed By: #### L [id number] #### [facility] ([facility]) [address] [place] [address] LEUKOCYTE ESTERASE PRESENCE IN URINE BY TEST STRIP Negative Normal Negative [facility] Comment on above: Performed By: #### L [id number] #### [facility] ([facility]) [address] [place] [address] NITRITE PRESENCE IN URINE Negative Normal Negative [facility] Comment on above: Performed By: #### L [id number] #### [facility] ([facility]) [address] [place] [address] pH (U) 5.0 [pH] Normal 5.0-8.0 [facility] Comment on above: Performed By: #### L [id number] #### [facility] ([facility]) [address] [place] [address] Protein (U) [Mass/Vol] 30 mg/dL Abnormal Negative [facility] Comment on above: Performed By: #### L [id number] #### [facility] ([facility]) [address] [place] [address] Specific gravity (U) [Rel density] 1.028 High 1.015-1.020 [facility] Comment on above: Performed By: #### L [id number] #### [facility] ([facility]) [address] [place] [address] VITAMIN B12on 04-29-2023 Cobalamin (Vitamin B12) [Mass/Vol] 512 pg/mL Normal 180-914 [facility] Comment on above: Result Comment: REFE RENCE RANGES: 180-914 pg/mL Normal 145-179 pg/mL Indeterminate <145 pg/mL Deficient Performed By: #### L [id number] #### [facility] ([facility]) [address] [place] [address] 30on 04-28-2023 30 The patient is Moder [...] to discharge with patient and caregiver Normal [facility] BASIC METABOLIC PANELon 08-0 Anion gap [Moles/Vol] 12 mmol/L Normal 7-20 [facility] Comment on above: Performed By: #### L [id number] #### [facility] ([facility]) [address] [place] [address] Calcium [Mass/Vol] 9.2 mg/dL Normal 8.6-10.3 [facility] Comment on above: Performed By: #### L [id number] #### [facility] ([facility]) [address] [place] [address] Chloride [Moles/Vol] 106 mmol/L Normal 98-107 [facility] Comment on above: Performed By: #### L [id number] #### [facility] ([facility]) [address] [place] [address] CO2 [Moles/Vol] 25 mmol/L Normal 21-[address] [facility] Comment on above: Performed By: #### L [id number] #### [facility] ([facility]) [address] [place] [address] Creatinine [Mass/Vol] 0.64 mg/dL Normal 0.60-1.20 [facility] Comment on above: Performed By: #### L [id number] #### [facility] ([facility]) [address] [place] [address] GLOMERULAR FILTRATION RATE ML/MIN/1.73 SQ M.PREDICTED 96.8 mL/min/1.73m*2 Normal >60.0 [facility] Comment on above: Result Comment: [facility]???s estimated glomerular filtration rate (eGFR) will [...] individuals. Performed By: #### L [id number] #### [facility] ([facility]) [address] [place] [address] Glucose [Mass/Vol] 163 mg/dL High 70-100 [facility] Comment on above: Performed By: #### L [id number] #### [facility] ([facility]) [address] [place] [address] Potassium [Moles/Vol] 3.8 mmol/L Normal 3.5-5.1 [facility] Comment on above: Performed By: #### L [id number] #### [facility] ([facility]) [address] [place] [address] Sodium [Moles/Vol] 139 mmol/L Normal 136-145 [facility] Comment on above: Performed By: #### L [id number] #### [facility] ([facility]) [address] [place] [address] Urea nitrogen [Mass/Vol] 14 mg/dL Normal 7-25 [facility] Comment on above: Performed By: #### L [id number] #### [facility] ([facility]) [address] [place] [address] UREA NITROGEN/CREATININE (MASS RATIO) IN SER/PLAS 21.9 Normal [facility] Comment on above: Performed By: #### L [id number] #### [facility] ([facility]) [address] [place] [address] CBCon 04-28-2023 Erythrocyte distribution width (RBC) [Ratio] 13.4 % Normal 11.5-15.0 [facility] Comment on above: Performed By: #### L [id number] #### [facility] ([facility]) [address] [place] [address] ERYTHROCYTE MEAN CORPUSCULAR HEMOGLOBIN CONCENTRATION (G/DL) BY AUTOMATED 34.0 g/dL Normal 32.0-35.0 [facility] Comment on above: Performed By: #### L [id number] #### [facility] ([facility]) [address] [place] [address] Hematocrit (Bld) [Volume fraction] 37.1 % Normal 36.0-48.0 [facility] Comment on above: Performed By: #### L [id number] #### [facility] ([facility]) [address] [place] [address] Hemoglobin (Bld) [Mass/Vol] 12.6 g/dL Normal 12.0-15.0 [facility] Comment on above: Performed By: #### L [id number] #### [facility] ([facility]) [address] [place] [address] MCH (RBC) [Entitic mass] 28.2 pg Normal 27.0-33.0 [facility] Comment on above: Performed By: #### L [id number] #### [facility] ([facility]) [address] [place] [address] MCV (RBC) [Entitic vol] 83.0 fL Normal 82.0-98.0 [facility] Comment on above: Performed By: #### L [id number] #### [facility] ([facility]) [address] [place] [address] PLATELETS (10*3/UL) IN BLOOD AUTOMATED COUNT 313 10*3/uL Normal 150-400 [facility] Comment on above: Performed By: #### L [id number] #### [facility] ([facility]) [address] [place] [address] RBC (Bld) [#/Vol] 4.47 10*6/uL Normal 3.80-5.00 [facility] Comment on above: Performed By: #### L [id number] #### [facility] ([facility]) [address] [place] [address] WBC (Bld) [#/Vol] 8.52 10*3/uL Normal 4.00-10.60 [facility] Comment on above: Performed By: #### L [id number] #### [facility] ([facility]) [address] [facility] [place] [address] HEPARIN LEVELon 04-28-2023 HEPARIN UNFRACTIONATED (U/ML) IN PPP BY CHROMOGENIC METHOD 0.30 IU/mL Normal 0.3-0.7 [facility] Comment on above: Result Comment: [place] roxaban and Apixaban will interfere with the anti Xa assay used to monitor UFH and LMWH. Performed By: #### L [id number] #### [facility] ([facility]) [address] [place] [address] HEPARIN UNFRACTIONATED (U/ML) IN PPP BY CHROMOGENIC METHOD 0.43 IU/mL Normal 0.3-0.7 [facility] Comment on above: Result Comment: [place] roxaban and Apixaban will interfere with the anti Xa assay used to monitor UFH and LMWH. Performed By: #### L [id number] ####[facility] ([facility])[address] [place] [address] MAGNESIUMon 04-28-2023 Magnesium [Mass/Vol] 1.2 mg/dL Low 1.9-2.7 [facility] Comment on above: Performed By: #### L [id number] #### [facility] ([facility]) [address] [place] [address] NURSNOTEon 04-28-2023 NURSNOTE Pt Hr reaching betwe en 100-115, cardio fellow made aware as well as primary. Normal [facility] NURSNOTE Primary made aware o f 1.2 mag, loss of IV access again, picc paged. Normal [facility] NURSNOTE IV access lost, prim geoffrey made aware, picc paged. Normal [facility] POCT GLUCOSE METER UNSOLICIT ED RESULTSon 04-28-2023 Glucose [Mass/Vol] 205 mg/dL High 70-105 [facility] Comment on above: Order Comment: Waive d Testing in the ED is performed under the ED CLIA certificate #[id number]. Result Comment: atru ss Performed By: #### L [id number] #### [facility] ([facility]) [address] [place] [address] Glucose [Mass/Vol] 223 mg/dL High 70-105 [facility] Comment on above: Order Comment: Waive d Testing in the ED is performed under the ED CLIA certificate #[id number]. Result Comment: [email or web address] Performed By: #### L [id number] ####[facility] ([facility])[address] [facility] [place] [address] Glucose [Mass/Vol] 185 mg/dL High 70-105 [facility] Comment on above: Order Comment: Waive d Testing in the ED is performed under the ED CLIA certificate #[id number]. Result Comment: [email or web address] Performed By: #### L [id number] #### [facility] ([facility]) [address] [place] [address] Glucose [Mass/Vol] 146 mg/dL High 70-105 [facility] Comment on above: Order Comment: Waive d Testing in the ED is performed under the ED CLIA certificate #[id number]. Result Comment: [email or web address] Performed By: #### L [id number] #### [facility] ([facility]) [address] [place] [address] 30on 04-27-2023 30 The patient is Moder [...] Assess for changes in respiratory status Normal [facility] B-TYPE NATRIURETIC PEPTIDEon 04-27-2023 Natriuretic peptide B (Bld) [Mass/Vol] 299 pg/mL High 0-100 [facility] Comment on above: Performed By: #### L [id number] #### [facility] ([facility]) [address] [place] [address] BASIC METABOLIC PANELon 08-0 Anion gap [Moles/Vol] 7 mmol/L Normal 7-20 [facility] Comment on above: Performed By: #### L [id number] #### [facility] ([facility]) [address] [place] [address] Calcium [Mass/Vol] 7.9 mg/dL Low 8.6-10.3 [facility] Comment on above: Performed By: #### L [id number] #### [facility] ([facility]) [address] [place] [address] Chloride [Moles/Vol] 111 mmol/L High 98-107 [facility] Comment on above: Performed By: #### L [id number] #### [facility] ([facility]) [address] [place] [address] CO2 [Moles/Vol] 25 mmol/L Normal 21-[address] [facility] Comment on above: Performed By: #### L [id number] #### [facility] ([facility]) [address] [place] [address] Creatinine [Mass/Vol] 0.63 mg/dL Normal 0.60-1.20 [facility] Comment on above: Performed By: #### L [id number] #### [facility] ([facility]) [address] [place] [address] GLOMERULAR FILTRATION RATE ML/MIN/1.73 SQ M.PREDICTED 97.2 mL/min/1.73m*2 Normal >60.0 [facility] Comment on above: Result Comment: [facility]???s estimated glomerular filtration rate (eGFR) will [...] group of individuals. Performed By: #### L [id number] #### [facility] ([facility]) [address] [place] [address] Glucose [Mass/Vol] 134 mg/dL High 70-100 [facility] Comment on above: Performed By: #### L [id number] #### [facility] ([facility]) [address] [place] [address] Potassium [Moles/Vol] 3.4 mmol/L Low 3.5-5.1 [facility] Comment on above: Performed By: #### L [id number] #### [facility] ([facility]) [address] [place] [address] Sodium [Moles/Vol] 140 mmol/L Normal 136-145 [facility] Comment on above: Performed By: #### L [id number] #### [facility] ([facility]) [address] [place] [address] Urea nitrogen [Mass/Vol] 9 mg/dL Normal 7-25 [facility] Comment on above: Performed By: #### L [id number] #### [facility] ([facility]) [address] [place] [address] UREA NITROGEN/CREATININE (MASS RATIO) IN SER/PLAS 14.3 Normal [facility] Comment on above: Performed By: #### L [id number] #### [facility] ([facility]) [address] [place] [address] CBCon 04-27-2023 Erythrocyte distribution width (RBC) [Ratio] 13.4 % Normal 11.5-15.0 [facility] Comment on above: Performed By: #### L [id number] ####[facility] ([facility])[address] [place] [address] ERYTHROCYTE MEAN CORPUSCULAR HEMOGLOBIN CONCENTRATION (G/DL) BY AUTOMATED 33.1 g/dL Normal 32.0-35.0 [facility] Comment on above: Performed By: #### L [id number] ####[facility] ([facility])[address] [place] [address] Hematocrit (Bld) [Volume fraction] 35.3 % Low 36.0-48.0 [facility] Comment on above: Performed By: #### L [id number] ####[facility] ([facility])[address] [place] [address] Hemoglobin (Bld) [Mass/Vol] 11.7 g/dL Low 12.0-15.0 [facility] Comment on above: Performed By: #### L [id number] ####[facility] ([facility])[address] [place] [address] MCH (RBC) [Entitic mass] 28.3 pg Normal 27.0-33.0 [facility] Comment on above: Performed By: #### L [id number] ####[facility] ([facility])[address] [place] [address] MCV (RBC) [Entitic vol] 85.3 fL Normal 82.0-98.0 [facility] Comment on above: Performed By: #### L [id number] ####[facility] ([facility])[address] [place] [address] PLATELETS (10*3/UL) IN BLOOD AUTOMATED COUNT 296 10*3/uL Normal 150-400 [facility] Comment on above: Performed By: #### L [id number] ####[facility] ([facility])[address] [place], [place] [address] RBC (Bld) [#/Vol] 4.14 10*6/uL Normal 3.80-5.00 [facility] Comment on above: Performed By: #### L [id number] ####[facility] ([facility])[address] [place] [address] WBC (Bld) [#/Vol] 7.50 10*3/uL Normal 4.00-10.60 [facility] Comment on above: Performed By: #### L [id number] ####[facility] ([facility])[address] [place] [address] HEPARIN LEVELon 04-27-2023 HEPARIN UNFRACTIONATED (U/ML) IN PPP BY CHROMOGENIC METHOD 0.50 IU/mL Normal 0.3-0.7 [facility] Comment on above: Result Comment: [place] roxaban and Apixaban will interfere with the anti Xa assay used to monitor UFH and LMWH. Performed By: #### L [id number] ####[facility] ([facility])[address] [place] [address] HEPARIN UNFRACTIONATED (U/ML) IN PPP BY CHROMOGENIC METHOD 0.81 IU/mL High 0.3-0.7 [facility] Comment on above: Result Comment: [place] roxaban and Apixaban will interfere with the anti Xa assay used to monitor UFH and LMWH. Performed By: #### L [id number] #### [facility] ([facility]) [address] [place] [address] HEPARIN UNFRACTIONATED (U/ML) IN PPP BY CHROMOGENIC METHOD 0.81 IU/mL High 0.3-0.7 [facility] Comment on above: Order Comment: Waive d Testing in the ED is performed under the ED CLIA certificate #[id number]. Result Comment: [place] roxaban and Apixaban will interfere with the anti Xa assay used to monitor UFH and LMWH. Performed By: #### L [id number] #### [facility] ([facility]) [address] [place] [address] HEPARIN UNFRACTIONATED (U/ML) IN PPP BY CHROMOGENIC METHOD 0.56 IU/mL Normal 0.3-0.7 [facility] Comment on above: Order Comment: Waive d Testing in the ED is performed under the ED CLIA certificate #[id number]. Result Comment: [place] roxaban and Apixaban will interfere with the anti Xa assay used to monitor UFH and LMWH. Performed By: #### L [id number] #### [facility] ([facility]) [address] [place] [address] MAGNESIUMon 04-27-2023 Magnesium [Mass/Vol] 1.3 mg/dL Low 1.9-2.7 [facility] Comment on above: Performed By: #### L [id number] #### [facility] ([facility]) [address] [place] [address] NURSNOTEon 04-27-2023 NURSNOTE Nurse informed pili davis work In regards to APS being called on pt prior to admission to [facility]. Social currently looking into it for any need for plan or action. [facility] NURSNOTE Nurse informed pili davis work In regards to APS being called on pt prior to admission to [facility]. Social currently looking into it for any need for plan or action. [facility] NURSNOTE Call to lab regardin g Heparin level drawn at 2346. Per lab, sample currently spinning and will have results in approximately 15 minutes. [facility] NURSNOTE Lab called regarding missing Heparin level ordered for 2100. Per lab, will send cable lacer to draw now. [facility] POCT GLUCOSE METER UNSOLICIT ED RESULTSon 04-27-2023 Glucose [Mass/Vol] 174 mg/dL High 70-105 [facility] Comment on above: Order Comment: Waive d Testing in the ED is performed under the ED CLIA certificate #[id number]. Result Comment: [email or web address] [email or web address] Performed By: #### L [id number] #### [facility] ([facility]) [address] [place] [address] Glucose [Mass/Vol] 235 mg/dL High 70-105 [facility] Comment on above: Order Comment: Waive d Testing in the ED is performed under the ED CLIA certificate #[id number]. Result Comment: acar [email or web address] Performed By: #### L [id number] ####[facility] ([facility])[address] [place] [address] Glucose [Mass/Vol] 134 mg/dL High 70-105 [facility] Comment on above: Order Comment: Waive d Testing in the ED is performed under the ED CLIA certificate #[id number]. Result Comment: acar r12 Performed By: #### L [id number] ####[facility] ([facility])[address] [facility] [place] [address] Glucose [Mass/Vol] 129 mg/dL High 70-105 [facility] Comment on above: Order Comment: Waive d Testing in the ED is performed under the ED CLIA certificate #[id number]. Result Comment: [email or web address] [email or web address] Performed By: #### L [id number] ####[facility] ([facility])[address] [facility] [address] Glucose [Mass/Vol] 175 mg/dL High 70-105 [facility] Comment on above: Order Comment: Waive d Testing in the ED is performed under the ED CLIA certificate #[id number]. Result Comment: [email or web address] [email or web address] Performed By: #### L [id number] ####[facility] ([facility])[address] [facility] [place] [address] TROPONIN Ion 04-27-2023 Troponin I.cardiac [Mass/Vol] 1.17 ng/mL Critically high 0.00-0.04 [facility] Comment on above: Result Comment: Prev ious result verified on 04/27/2023 0213 on specimen/case [id number] called with component Troponin I for procedure Troponin I with value 1.59 ng/mL. Performed By: #### L [id number] #### [facility] ([facility]) [address] [place] [address] Troponin I.cardiac [Mass/Vol] 1.59 ng/mL Critically high 0.00-0.04 [facility] Comment on above: Result Comment: Prev ious result verified on 04/26/2023 1845 on specimen/case [id number] called with component Troponin I for procedure Troponin I with value 2.45 ng/mL. Performed By: #### L [id number] #### [facility] ([facility]) [address] [place] [address] 30on 04-26-2023 30 Problem: Pain - Adul [...] for the shift include monitor labs/vitals Normal [facility] 04-26-2023 ACTIVATED PARTIAL THROMBOPLASTIN TIME IN PPP BY COAGULATION ASSAY 65.1 Seconds High 25.0-35.0 [facility] Comment on above: Order Comment: Basel ine aPTT before initiating heparin infusion. Result Comment: Clin ical significance of the APTT is questionable in the presence of heparin. Performed By: #### L [id number] #### [facility] ([facility]) [address] [place] [address] BILIRUBIN, DIRECTon 04-26-20 Magnesium [Mass/Vol] 0.1 mg/dL Normal 0-0.2 [facility] Comment on above: Performed By: #### L [id number] #### [facility] ([facility]) [address] [place] [address] CBC WITH AUTO DIFFERENTIALon 04-26-2023 Basophils (Bld) [#/Vol] 0.04 10*3/uL Normal 0.00-0.20 [facility] Comment on above: Performed By: #### L [id number] #### [facility] ([facility]) [address] [place] [address] Basophils/100 WBC (Bld) 0.6 % Normal 0.0-1.0 [facility] Comment on above: Performed By: #### L [id number] #### [facility] ([facility]) [address] [place] [address] Eosinophils (Bld) [#/Vol] 0.24 10*3/uL Normal 0.00-0.50 [facility] Comment on above: Performed By: #### L [id number] #### [facility] ([facility]) [address] [place] [address] Eosinophils/100 WBC (Bld) 3.3 % Normal 0.0-6.0 [facility] Comment on above: Performed By: #### L [id number] #### [facility] ([facility]) [address] [place] [address] Erythrocyte distribution width (RBC) [Ratio] 13.7 % Normal 11.5-15.0 [facility] Comment on above: Performed By: #### L [id number] #### [facility] ([facility]) [address] [place] [address] ERYTHROCYTE MEAN CORPUSCULAR HEMOGLOBIN CONCENTRATION (G/DL) BY AUTOMATED 33.7 g/dL Normal 32.0-35.0 [facility] Comment on above: Performed By: #### L [id number] #### [facility] ([facility]) [address] [place] [address] Hematocrit (Bld) [Volume fraction] 35.6 % Low 36.0-48.0 [facility] Comment on above: Performed By: #### L [id number] #### [facility] ([facility]) [address] [place] [address] Hemoglobin (Bld) [Mass/Vol] 12.0 g/dL Normal 12.0-15.0 [facility] Comment on above: Performed By: #### L [id number] #### [facility] ([facility]) [address] [place] [address] Immature granulocytes (Bld) [#/Vol] 0.07 10*3/uL Normal 0.00-0.20 [facility] Comment on above: Performed By: #### L [id number] #### [facility] ([facility]) [address] [place] [address] Immature granulocytes/100 WBC (Bld) 1.0 % Normal 0.0-1.0 [facility] Comment on above: Performed By: #### L [id number] #### [facility] ([facility]) [address] [place] [address] Lymphocytes (Bld) [#/Vol] 1.66 10*3/uL Normal 1.20-4.00 [facility] Comment on above: Performed By: #### L [id number] #### [facility] ([facility]) [address] [place] [address] Lymphocytes/100 WBC (Bld) 23.0 % Normal 20.0-45.0 [facility] Comment on above: Performed By: #### L [id number] #### [facility] ([facility]) [address] [place] [address] MCH (RBC) [Entitic mass] 28.6 pg Normal 27.0-33.0 [facility] Comment on above: Performed By: #### L [id number] #### [facility] ([facility]) [address] [place] [address] MCV (RBC) [Entitic vol] 84.8 fL Normal 82.0-98.0 [facility] Comment on above: Performed By: #### L [id number] #### [facility] ([facility]) [address] [place] [address] Monocytes (Bld) [#/Vol] 0.83 10*3/uL Normal 0.10-1.00 [facility] Comment on above: Performed By: #### L [id number] #### [facility] ([facility]) [address] [place] [address] Monocytes/100 WBC (Bld) 11.5 % Normal 5.0-12.0 [facility] Comment on above: Performed By: #### L [id number] #### [facility] ([facility]) [address] [place] [address] Neutrophils (Bld) [#/Vol] 4.37 10*3/uL Normal 1.60-7.60 [facility] Comment on above: Performed By: #### L [id number] #### [facility] ([facility]) [address] [place] [address] Neutrophils/100 WBC (Bld) 60.6 % Normal 40.0-72.0 [facility] Comment on above: Performed By: #### L [id number] #### [facility] ([facility]) [address] [place] [address] NRBC (PER 100 WBCS) BY AUTOMATED COUNT 0.0 % Normal 0 [facility] Comment on above: Performed By: #### L [id number] #### [facility] ([facility]) [address] [place] [address] PLATELETS (10*3/UL) IN BLOOD AUTOMATED COUNT 301 10*3/uL Normal 150-400 [facility] Comment on above: Performed By: #### L [id number] #### [facility] ([facility]) [address] [place] [address] RBC (Bld) [#/Vol] 4.20 10*6/uL Normal 3.80-5.00 [facility] Comment on above: Performed By: #### L [id number] #### [facility] ([facility]) [address] [place] [address] WBC (Bld) [#/Vol] 7.21 10*3/uL Normal 4.00-10.60 [facility] Comment on above: Performed By: #### L [id number] #### [facility] ([facility]) [address] [place] [address] CKon 04-26-2023 CREATINE KINASE (U/L) IN SER/PLAS 396.0 U/L High 30.0-223.0 [facility] Comment on above: Performed By: #### L [id number] #### [facility] ([facility]) [address] [place] [address] COMPREHENSIVE METABOLIC PANE Cedric 04-26-2023 Albumin [Mass/Vol] 3.0 g/dL Low 3.5-5.7 [facility] Comment on above: Performed By: #### L [id number] #### [facility] ([facility]) [address] [place] [address] ALP [Catalytic activity/Vol] 63 U/L Normal 34-104 [facility] Comment on above: Performed By: #### L [id number] #### [facility] ([facility]) [address] [place] [address] ALT [Catalytic activity/Vol] 17 U/L Normal 7-52 [facility] Comment on above: Performed By: #### L [id number] #### [facility] ([facility]) [address] [place] [address] Anion gap [Moles/Vol] 10 mmol/L Normal 7-20 [facility] Comment on above: Performed By: #### L [id number] #### [facility] ([facility]) [address] [place] [address] AST [Catalytic activity/Vol] 41 U/L High 13-39 [facility] Comment on above: Performed By: #### L [id number] #### [facility] ([facility]) [address] [place] [address] Bilirubin [Mass/Vol] 0.3 mg/dL Normal 0.3-1.0 [facility] Comment on above: Performed By: #### L [id number] #### [facility] ([facility]) [address] [place] [address] Calcium [Mass/Vol] 8.4 mg/dL Low 8.6-10.3 [facility] Comment on above: Performed By: #### L [id number] #### [facility] ([facility]) [address] [place] [address] Chloride [Moles/Vol] 110 mmol/L High 98-107 [facility] Comment on above: Performed By: #### L [id number] #### [facility] ([facility]) [address] [place] [address] CO2 [Moles/Vol] 25 mmol/L Normal 21-[address] [facility] Comment on above: Performed By: #### L [id number] #### [facility] ([facility]) [address] [place] [address] Creatinine [Mass/Vol] 0.70 mg/dL Normal 0.60-1.20 [facility] Comment on above: Performed By: #### L [id number] #### [facility] ([facility]) [address] [place] [address] GLOMERULAR FILTRATION RATE ML/MIN/1.73 SQ M.PREDICTED 94.7 mL/min/1.73m*2 Normal >60.0 [facility] Comment on above: Result Comment: [facility]???s estimated glomerular filtration rate (eGFR) [...] individuals. Performed By: #### L [id number] #### [facility] ([facility]) [address] [place] [address] Glucose [Mass/Vol] 75 mg/dL Normal 70-100 [facility] Comment on above: Performed By: #### L [id number] #### [facility] ([facility]) [address] [place] [address] Potassium [Moles/Vol] 3.5 mmol/L Normal 3.5-5.1 [facility] Comment on above: Performed By: #### L [id number] #### [facility] ([facility]) [address] [place] [address] Protein [Mass/Vol] 5.6 g/dL Low 6.0-8.3 [facility] Comment on above: Performed By: #### L [id number] #### [facility] ([facility]) [address] [place] [address] Sodium [Moles/Vol] 141 mmol/L Normal 136-145 [facility] Comment on above: Performed By: #### L [id number] #### [facility] ([facility]) [address] [place] [address] Urea nitrogen [Mass/Vol] 12 mg/dL Normal 7-25 [facility] Comment on above: Performed By: #### L [id number] #### [facility] ([facility]) [address] [place] [address] UREA NITROGEN/CREATININE (MASS RATIO) IN SER/PLAS 17.1 Normal [facility] Comment on above: Performed By: #### L [id number] #### [facility] ([facility]) [address] [place] [address] CONSULTon 04-26-2023 CONSULT ------ -- Attestation signed [...] Teaching Physician's Revisions: none Ofe Little MD [place] [facility] -- Reason For Consult NSTEMI, direct transfer, communicated earlier 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 female who was admittied initailly at [facility] for NSTEMI. PMHx of CAD s/p CABG x4 (PARKER-LAD, L radial-OM 1, SVG-OM2, SVG-PDA) in 05/07/2017, HLD, smoker, HFmrEF, unable to reliably assess NYHA at this point, diabetes mellitus. Patient had initially presented to [facility] by ambulance after he was found on [...] q8h PRN (more content not included)... Normal [facility] HEMOGLOBIN A1Con 04-26-2023 Glucose [Mass/Vol] 212 mg/dL Normal [facility] Comment on above: Performed By: #### L [id number] #### [facility] ([facility]) [address] [place] [address] HbA1c (Bld) [Mass fraction] 9.0 % High 4.0-6.0 [facility] Comment on above: Performed By: #### L [id number] #### [facility] ([facility]) [address] [place] [address] HEPARIN LEVELon 04-26-2023 HEPARIN UNFRACTIONATED (U/ML) IN PPP BY CHROMOGENIC METHOD 0.27 IU/mL Low 0.3-0.7 [facility] Comment on above: Order Comment: Basel ine aPTT before initiating heparin infusion. Result Comment: Jolanta roxaban and Apixaban will interfere with the anti Xa assay used to monitor UFH and LMWH. Performed By: #### L [id number] #### [facility] ([facility]) [address] [place] [address] LIPID PANELon 04-26-2023 CHOL/HDL 2.5 mg/dL Normal [facility] Comment on above: Performed By: #### L [id number] #### [facility] ([facility]) [address] [facility] [place] [address] Cholesterol [Mass/Vol] 85 mg/dL Low 120-200 Un [facility] Comment on above: Performed By: #### L [id number] #### [facility] ([facility]) [address] [facility] [place] [address] Magnesium [Mass/Vol] 67 mg/dL Normal 40-149 [facility] Comment on above: Result Comment: TRIG LYCERIDE REFERENCE RANGE: 20 YEARS AND OLDER CARDIOVASCULAR RISK LESS THAN 150 mg/dL LOW RISK 150 TO 199 mg/dL BORDERLINE RISK 200 mg/dL AND GREATER HIGH RISK Performed By: #### L [id number] #### [facility] ([facility]) [address] [facility] [place] [address] Magnesium [Mass/Vol] 38 mg/dL Normal 0-160 [facility] Comment on above: Performed By: #### L [id number] #### [facility] ([facility]) [address] [facility] [place] [address] Magnesium [Mass/Vol] 34 mg/dL Normal 23-92 [facility] Comment on above: Performed By: #### L [id number] #### [facility] ([facility]) [address] [place] [place] [address] NON HDL CHOL. (LDL+VLDL) 51 Normal [facility] Comment on above: Performed By: #### L [id number] #### [facility] ([facility]) [address] [facility] [address] TOTAL VLDL-C 13 mg/dL Normal 0-40 [facility] Comment on above: Performed By: #### L [id number] #### [facility] ([facility]) [address] [facility] [place] [address] MAGNESIUMon 04-26-2023 Magnesium [Mass/Vol] 0.6 mg/dL Invalid Interpretation Code 1.9-2.7 [facility] Comment on above: Performed By: #### L [id number] #### [facility] ([facility]) [address] [facility] [place] [address] NURSNOTEon 04-26-2023 NURSNOTE Critical trop 2.45 a nd mag 0.6 reported by lab, admitting MD made aware. No current orders. Normal [facility] NURSNOTE Labs ordered at 1400 , nurse called lab x4 as no current labs completed. Nurse assured labs will be drawn shortly. Normal [facility] POCT GLUCOSE METER UNSOLICIT ED RESULTSon 04-26-2023 Glucose [Mass/Vol] 78 mg/dL Normal 70-105 [facility] Comment on above: Order Comment: Waive d Testing in the ED is performed under the ED CLIA certificate #[id number]. Result Comment: [email or web address] [email or web address] Performed By: #### L [id number] #### [facility] ([facility]) [address] [place] [address] Glucose [Mass/Vol] 70 mg/dL Normal 70-105 [facility] Comment on above: Order Comment: Waive d Testing in the ED is performed under the ED CLIA certificate #[id number]. Result Comment: [email or web address] [email or web address] Performed By: #### L [id number] #### [facility] ([facility]) [address] [place] [address] Glucose [Mass/Vol] 62 mg/dL Low 70-105 [facility] Comment on above: Order Comment: Waive d Testing in the ED is performed under the ED CLIA certificate #[id number]. Result Comment: [email or web address] Performed By: #### L [id number] ####[facility] ([facility])[address] [place] [address] TROPONIN Ion 04-26-2023 Troponin I.cardiac [Mass/Vol] 2.45 ng/mL Critically high 0.00-0.04 [facility] Comment on above: Performed By: #### L [id number] #### [facility] ([facility]) [address] [place] [address] TSH3 REFLEX TO FT4on 023 THYROTROPIN (MIU/L) IN SER/PLAS BY DETECTION LIMIT <= 0.05 MIU/L 1.82 mIU/L Normal 0.34-5.60 [facility] Comment on above: Performed By: #### L [id number] #### [facility] ([facility]) [address] [place] [address] Basic Metabolic Panelon 02-21 Anion gap [Moles/Vol] 9 mmol/L 9 - 17 mmol/L [facility] Calcium [Mass/Vol] 8.8 mg/dL 8.6 - 10. 4 mg/dL [facility] Chloride [Moles/Vol] 106 mmol/L 98 - 10 7 mmol/L [facility] CO2 [Moles/Vol] 25 mmol/L 20 - 31 mmol/L [facility] Creatinine [Mass/Vol] 0.83 mg/dL 0.50 - 0.90 mg/dL [facility] GFR/1.73 sq M.predicted MDRD (S/P/Bld) [Vol rate/Area] - PINF [facility] Comment on above: These results are not [...] 152 mg/dL High 70 - 99 mg/dL [facility] [email or web address] Interpretation and review of laboratory results Abnormal [facility] [email or web address] Potassium [Moles/Vol] 4.9 mmol/L 3.7 - 5.3 mmol/L [facility] Sodium [Moles/Vol] 140 mmol/L 135 - 144 mmol/L [facility] Urea nitrogen [Mass/Vol] 15 mg/dL 8 - 23 mg/dL [facility] Urea nitrogen/Creatinine [Mass ratio] 18 mg/mg 9 - 20 [facility] CBC with Auto Differentialon 03-11-2023 Basophils (Bld) [#/Vol] 0.04 10*3/uL [facility] Basophils/100 WBC (Bld) 0 % 0 - 2 % [facility] Eosinophils (Bld) [#/Vol] 0.17 10*3/uL [facility] Eosinophils/100 WBC (Bld) 2 % 1 - 4 % [facility] Erythrocyte distribution width (RBC) [Ratio] 13.2 % 11.8 - 14.4 % [facility] Hematocrit (Bld) [Volume fraction] 38.5 % 36.3 - 47.1 % [facility] Hemoglobin (Bld) [Mass/Vol] 12.5 g/dL 11.9 - 15.1 g/dL [facility] Immature granulocytes (Bld) [#/Vol] 0.10 10*3/uL [facility] Immature granulocytes/100 WBC (Bld) 1 % High 0 [facility] Interpretation and review of laboratory results Abnormal [facility] Lymphocytes/100 WBC (Bld) 19 % Low 24 - 43 % [facility] Lymphocytes/100 WBC (Bld) 1.88 % [facility] MCH (RBC) [Entitic mass] 29.1 pg 25.2 - 33.5 pg [facility] MCHC (RBC) [Mass/Vol] 32.5 g/dL 28.4 - 34.8 g/dL [facility] MCV (RBC) [Entitic vol] 89.7 fL 82.6 - 102.9 fL [facility] Monocytes/100 WBC (Bld) 9 % 3 - 12 % [facility] Monocytes/100 WBC (Bld) 0.90 % [facility] Neutrophils/100 WBC (Bld) 69 % High 36 - 65 % [facility] NRBC Automated 0.0 0.0 per 100 WBC [facility] Platelet mean volume (Bld) [Entitic vol] 10.2 fL 8.1 - 13.5 fL [facility] Platelets (Bld) [#/Vol] 327 10*3/uL [facility] RBC (Bld) [#/Vol] 4.29 10*6/uL 3.95 - 5.1 1 m/uL [facility] Segmented neutrophils/100 WBC (Bld) 6.72 % [facility] WBC other (Bld) [#/Vol] 9.8 [facility] Microscopic Urinalysison Bacteria LM Ql (Urine sed) 3+ Abnormal None [facility] Epithelial cells LM.HPF (Urine sed) [#/Area] 10 TO 20 [facility] Interpretation and review of laboratory results Abnormal [facility] RBC LM.HPF (Urine sed) [#/Area] 0 TO 2 [facility] WBC LM.HPF (Urine sed) [#/Area] 10 TO 20 [facility] Urinalysis with Reflex to Cu ltureon 03-11-2023 Bilirubin Ql (U) Negative NEGATIVE [facility] Clarity (U) Clear Clear [facility] Color (U) Yellow Yellow [facility] Glucose Test strip (U) [Mass/Vol] Negative NEGATIVE [facility] Hemoglobin Auto test strip Ql (U) Negative NEGATIVE [facility] Interpretation and review of laboratory results Abnormal [facility] Ketones (U) [Mass/Vol] Negative NEGATIVE [facility] Leukocyte esterase Test strip Ql (U) MODERATE Abnormal NEGATIVE [facility] Nitrite Ql (U) Positive Abnormal NEGATIVE [facility] pH (U) 7.5 [pH] 5.0 - 9.0 [facility] Protein (U) [Mass/Vol] 1+ Abnormal NEGATIVE [facility] Specific gravity (U) [Rel density] 1.015 1.010 - 1.020 [facility] Urobilinogen Qn (U) Normal Normal [facility] Cult,Urineon 03-09-2023 Cult,Urine Specimen Description .URINE Culture NO SIGNIFICANT GROWTH Report Status FINAL 03/09/2023 Normal [facility] Comment on above: Performed By: #### U RC #### [facility] [address] [place] [address] Threshing Operator: Joey Aguilar MD Laboratory - Microbiology an d Antimicrobial susceptibilityon 03-07-2023 Bacteria identified Cx Nom (U) See Note [facility] Comment on above: Note: Specimen Descr iption .URINECulture NO SIGNIFICANT GROWTHReport Status FINAL 03/09/2023Responsible Observer: KALEB KLEIN ([id number]) No Panel Informationon 03-07 Reported Physicians See Note [facility] Comment on above: Note: Reported Physi cians:Ordering: Sonya PosadaAttending: Meliton Posadaeferring: Sonya Posada CT CSPINE WO CONon CT CSPINE WO CON Normal [facility] CT HEAD WO CONon 01-10-2023 CT HEAD WO CON Normal [facility] POINT OF CARE GLUCOSEon 12-23 Glucose [Mass/Vol] 177 mg/dL Critically high 74-106 T [facility] Comment on above: Performed By: #### P OCGLUC ####[facility] [address] [place], [place] [address]Gk. Antonella Medrano XR KNEE RT 3Von 01-10-2023 XR KNEE RT 3V Normal [facility] XR WRIST LT MIN 3 Von 2022 XR WRIST LT MIN 3 V Normal [facility] CBC AUTO DIFFon 01-06-2023 BASO # 0.0 103/ul Normal 0.0-0.1 [facility] Comment on above: Performed By: #### C BC ####[facility] [address] [place], [place] [address]Wa. Antonella Medrano Basophils/100 WBC (Bld) 0.4 % Normal 0.2-2.0 [facility] Comment on above: Performed By: #### C BC ####[facility] [address] [place] [address]Dr. Antonella Medrano EO # 0.2 103/ul Normal 0.0-0.7 [facility] Comment on above: Performed By: #### C BC ####[facility] [address] [place] [address]Dr. Antonella Medrano Eosinophils/100 WBC (Bld) 1.8 % Normal 0.9-7.0 [facility] Comment on above: Performed By: #### C BC ####[facility] [address] [place], [place] [address]Dr. Antonella Medrano Erythrocyte distribution width (RBC) [Ratio] 13.9 % Normal 11.0-15.0 [facility] Comment on above: Performed By: #### C BC ####[facility] [address] [place], [place] [address]Dr. Antonella Medrano Hematocrit (Bld) [Volume fraction] 36.0 % Normal 36.0-48.0 [facility] Comment on above: Performed By: #### C BC ####[facility] [address] [place], [place] [address]Dr. Antonella Medrano Hemoglobin (Bld) [Mass/Vol] 12.2 g/dL Normal 12.0-16.0 [facility] Comment on above: Performed By: #### C BC ####[facility] [address] [place], [place] [address]Dr. Antonella Medrano IG # 0.12 10e3/ul Critically high 0.00-0.03 [facility] Comment on above: Performed By: #### C BC ####[facility] [address] [place], [place] [address]Dr. Mariafilemon Medrano IG % 1.3 % Critically high 0.0-0.5 [facility] Comment on above: Performed By: #### C BC ####[facility] Z[address] [place], [place] [address]DrGerman Medrano LYMPH # 2.3 103/ul Normal 1.2-3.8 [facility] Comment on above: Performed By: #### C BC ####[facility] [address] [place] [address]Dr. Antonella Medrano Lymphocytes/100 WBC (Bld) 25.8 % Normal 20.5-60.0 [facility] Comment on above: Performed By: #### C BC ####[facility] [address] [place] [address]Dr. Antonella Medrano MANUAL DIFF REQ NO Normal [facility] Comment on above: Performed By: #### C BC ####[facility] [address] [place] [address]Dr. Antonella Medrano MCH (RBC) [Entitic mass] 30.0 pg Normal 26.7-34.0 [facility] Comment on above: Performed By: #### C BC ####[facility] [address] [place], [place] [address]Dr. Antonella Medrano MCHC (RBC) [Mass/Vol] 33.9 g/dL Normal 29.9-35.2 [facility] Comment on above: Performed By: #### C BC ####[facility] [address] [place], [place] [address]Dr. Antonella Medrano MCV (RBC) [Entitic vol] 88.5 fL Normal 81.0-99.0 [facility] Comment on above: Performed By: #### C BC ####[facility] [address] [place], [place] [address]Dr. Antonella Medrano MONO # 1.0 103/ul Critically high 0.3-0.8 [facility] Comment on above: Performed By: #### C BC ####[facility] [address] [place], [place] [address]DrGerman Medrano Monocytes/100 WBC (Bld) 10.6 % Normal 1.7-12.0 [facility] Comment on above: Performed By: #### C BC ####[facility] [address] [place], [place] [address]DrGerman Medrano NEUT # 5.4 103/ul Normal 1.4-6.5 [facility] Comment on above: Performed By: #### C BC ####[facility] [address] [place] [address]Dr. Antonella Medrano Neutrophils/100 WBC (Bld) 60.1 % Normal 43.0-75.0 [facility] Comment on above: Performed By: #### C BC ####[facility] [address] [place] [address]Dr. Antonella Medrano Platelet mean volume (Bld) [Entitic vol] 10.6 fL Normal 9.5-13.5 [facility] Comment on above: Performed By: #### C BC ####[facility] [address] [place] [address]Dr. Antonella Medrano PLT 306 103/ul Normal 150-450 [facility] Comment on above: Performed By: #### C BC ####[facility] [address] [place] [address]Dr. Antonella Mitchell RBC 4.07 106/ul Critically low 4.20-5.40 [facility] Comment on above: Performed By: #### C BC ####[facility] [address] [place] [address]Dr. Antonella Medrano WBC 9.0 103/ul Normal 4.0-11.0 [facility] Comment on above: Performed By: #### C BC ####[facility] [address] [place] [address] CSPINE WO CONon 3 CT CSPINE WO CON Normal [facility] POINT OF CARE GLUCOSEon 12-22 Glucose [Mass/Vol] 101 mg/dL Normal 74-106 [facility] Comment on above: Performed By: #### P OCGLUC ####[facility] [address] [place], [place] [address]Dr. Mariafilemon Medrano PROF 14(COMP METB)on 023 Albumin [Mass/Vol] 2.7 g/dL Critically low 3.4-5.0 [facility] Comment on above: Performed By: #### C MP, HSTROPN ####[facility] [address] [place] [address]Dr. Antonella Medrano Albumin/Globulin [Mass ratio] 0.8 {ratio} Normal [facility] Comment on above: Performed By: #### C MARLEY, HSTROPN ####[facility] [address] [place] [address]Dr. Antonella Medrano ALP [Catalytic activity/Vol] 95 U/L Normal 46-116 [facility] Comment on above: Performed By: #### C MARLEY, HSTROPN ####[facility] [address] [place] [address]Dr. Antonella Medrano ALT [Catalytic activity/Vol] 15 U/L Normal 14-59 [facility] Comment on above: Performed By: #### C MARLEY, HSTROPN ####[facility] [address]xd[address] [place] [address]Dr. Antonella Medrano Anion gap [Moles/Vol] 12.9 mmol/L Normal [facility] Comment on above: Performed By: #### C MARLEY, HSTROPN ####[facility] [address] [place] [address]Dr. Antonella Medrano AST [Catalytic activity/Vol] 13 U/L Critically low 15-37 [facility] Comment on above: Performed By: #### C MARLEY, HSTROPN ####[facility] [address] [place] [address]Dr. Antonella Medrano Bilirubin [Mass/Vol] 0.2 mg/dL Normal 0.2-1.0 [facility] Comment on above: Performed By: #### C MARLEY, HSTROPN ####[facility] [address]vw[address] [place] [address]Dr. Antonella Medrano Calcium [Mass/Vol] 8.6 mg/dL Normal 8.5-10.1 [facility] Comment on above: Performed By: #### C MARLEY, HSTROPN ####[facility] [address] [place] [address]Dr. Antonella Medrano Chloride [Moles/Vol] 106 mmol/L Normal 98-107 [facility] Comment on above: Performed By: #### C MARLEY, HSTROPN ####[facility] [address] [place] [address]Dr. Antonella Medrano CO2 [Moles/Vol] 28.1 mmol/L Normal 21.0-32.0 [facility] Comment on above: Performed By: #### C MARLEY, HSTROPN ####[facility] [address]og[address] [place] [address]Dr. Mariafilemon Medrano Creatinine [Mass/Vol] 1.05 mg/dL Critically high 0.55-1.02 [facility] Comment on above: Performed By: #### C MARLEY, HSTROPN ####[facility] [address] [place], [place] [address]Dr. Antonella Mitchell EGFR-AF INDIAN >60 Normal >=60 [facility] Comment on above: Performed By: #### C MARLEY, HSTROPN ####[facility] [address] [place], [place] [address]Dr. Mariafilemon Medrano EGFR-NON AF INDIAN 52 mL/min/1.73m2 Critically low >=60 [facility] Comment on above: Performed By: #### C MARLEY, HSTROPN ####[facility] [address] [place], [place] [address]Dr. Mariafilemon Medrano Globulin (S) [Mass/Vol] 3.5 g/dL Normal [facility] Comment on above: Performed By: #### C MARLEY, HSTROPN ####[facility] [address]kzt[address] [place] [address]Dr. Mariafilemon Medrano Glucose [Mass/Vol] 96 mg/dL Normal 74-106 [facility] Comment on above: Performed By: #### C MARLEY, HSTROPN ####[facility] [address]raaf[address] [place] [address]Dr. Antonella Medrano Potassium [Moles/Vol] 4.0 mmol/L Normal 3.5-5.1 [facility] Comment on above: Performed By: #### C MARLEY, HSTROPN ####[facility] [address] [place] [id number]. Antonella Medrano Protein [Mass/Vol] 6.2 g/dL Critically low 6.4-8.2 [facility] Comment on above: Performed By: #### C MP, HSTROPN ####[facility] [address] [place] [id number]. Antonella Medrano Sodium [Moles/Vol] 143 mmol/L Normal 136-145 [facility] Comment on above: Performed By: #### C MP, HSTROPN ####[facility] Qd[address]rptt2190 [place] [address]Dr. Antonella Medrano Urea nitrogen [Mass/Vol] 22.0 mg/dL Critically high 7.0-18.0 [facility] Comment on above: Performed By: #### C MP, HSTROPN ####[facility] Q[address]rcciums[address] [place] [address]Dr. Antonella Medrano Urea nitrogen/Creatinine [Mass ratio] 21.0 mg/mg Normal [facility] Comment on above: Performed By: #### C MP, HSTROPN ####[facility] [address] [place] [id number]. Antonella Medrano TROPONIN, HIGH SENSITIVITYon 01-06-2023 HSTROP 48.1 pg/mL Normal 4.0-51.3 [facility] Comment on above: Result Comment: CUT- OFF POINTS HAVE BEEN ESTABLISHED BASED ON THE FOURTH UNIVERSAL DEFINITIONS OF MYOCARDIALINFARCTION. THE UPPER REFERENCE LIMIT (URL) OF TROPONIN, DEFINED THE 99TH PERCENTILE OFcTnI DISTRIBUTION IN A REFERENCE POPULATION, HAS BEEN CONFIRMED THE DECISION THRESHOLDFOR OK DIAGNOSIS. Performed By: #### C MP, HSTROPN ####[facility] [address] [place] [address]Dr. Antonella Medrano XR PELVIS 1_2 VIEWSon 2022 XR PELVIS 1_2 VIEWS Normal [facility] XR SHOULDER LT 2V or >on XR SHOULDER LT 2V or > Normal [facility] CULTURE URINEon 01-03-2023 CULTURE URINE Culture Observations : GREATER THAN TWO ORGANISMS PRESENT. PLEASE RESUBMIT CLEAN CATCH MID-STREAM URINE IF CLINICALLY INDICATED. Normal [facility] Comment on above: Performed By: #### U RCX ####[facility] [address] [place] [address]Dr. Antonella Mitchell CBC AUTO DIFFon 01-02-2023 BASO # 0.0 103/ul Normal 0.0-0.1 [facility] Comment on above: Performed By: #### C BC ####[facility] U[address]dcjymef[address] [place], [place] [address]Dr. Antonella Medrano Basophils/100 WBC (Bld) 0.4 % Normal 0.2-2.0 [facility] Comment on above: Performed By: #### C BC ####[facility] A[address]cmy[address]ks[address] [place], [place] [address]Dr. Antonella Medrano EO # 0.2 103/ul Normal 0.0-0.7 [facility] Comment on above: Performed By: #### C BC ####[facility] [address]rpsvqx[address] [place], [place] [address]Dr. Antonella Medrano Eosinophils/100 WBC (Bld) 3.0 % Normal 0.9-7.0 [facility] Comment on above: Performed By: #### C BC ####[facility] Hzqypwfbyj90[address] [place], [place] [address]Dr. Antonella Mitchell Erythrocyte distribution width (RBC) [Ratio] 14.0 % Normal 11.0-15.0 [facility] Comment on above: Performed By: #### C BC ####[facility] [address]emxfa23[address] [place], [place] [address]Dr. Antonella Medrano Hematocrit (Bld) [Volume fraction] 37.5 % Normal 36.0-48.0 [facility] Comment on above: Performed By: #### C BC ####[facility] [address]kwkrjrgos[address] [place], [place] [address]Dr. Mariafilemon Mitchell Hemoglobin (Bld) [Mass/Vol] 12.1 g/dL Normal 12.0-16.0 [facility] Comment on above: Performed By: #### C BC ####[facility] [address]jj[address] [place] [address]Dr. Antonella Medrano IG # 0.10 10e3/ul Critically high 0.00-0.03 [facility] Comment on above: Performed By: #### C BC ####[facility] Mwswbkisby7186 [place] [address]DrGerman Antonella Mitchell IG % 1.3 % Critically high 0.0-0.5 [facility] Comment on above: Performed By: #### C BC ####[facility] [address]jci[address] [place], [place] [address]DrGerman Antonella Mitchell LYMPH # 2.1 103/ul Normal 1.2-3.8 [facility] Comment on above: Performed By: #### C BC ####[facility] Dydtfbqlhd7[address] [place], [place] [address]DrGerman Mariafilemon Medrano Lymphocytes/100 WBC (Bld) 27.4 % Normal 20.5-60.0 [facility] Comment on above: Performed By: #### C BC ####[facility] [address]qpf[address] [place], [place] [address]DrGerman Mariafilemon Medrano MANUAL DIFF REQ NO Normal [facility] Comment on above: Performed By: #### C BC ####[facility] [address]pxjistn[address] [place], [place] [address]DrGerman Antonella Mitchell MCH (RBC) [Entitic mass] 28.6 pg Normal 26.7-34.0 [facility] Comment on above: Performed By: #### C BC ####[facility] P[address]wpggbdy[address] [place], [place] [address]DrGerman Antonella Mitchell MCHC (RBC) [Mass/Vol] 32.3 g/dL Normal 29.9-35.2 [facility] Comment on above: Performed By: #### C BC ####[facility] Exvzrldbfg[address] [place], [place] [address]DrGerman Antonella Mitchell MCV (RBC) [Entitic vol] 88.7 fL Normal 81.0-99.0 [facility] Comment on above: Performed By: #### C BC ####[facility] C[address]hngcyec[address] [place], [place] [address]Dr. Antonella Medrano MONO # 0.7 103/ul Normal 0.3-0.8 [facility] Comment on above: Performed By: #### C BC ####[facility] [address]zlfvp8[address] [place] [address]Dr. Antonella Medrano Monocytes/100 WBC (Bld) 8.6 % Normal 1.7-12.0 [facility] Comment on above: Performed By: #### C BC ####[facility] Qsiatvdbww350[address] [place] [address]Dr. Antonella Medrano NEUT # 4.6 103/ul Normal 1.4-6.5 [facility] Comment on above: Performed By: #### C BC ####[facility] [address]chu[address] [place] [address]Dr. Antonella Medrano Neutrophils/100 WBC (Bld) 59.3 % Normal 43.0-75.0 [facility] Comment on above: Performed By: #### C BC ####[facility] F[address]ipkqpr[address] [place], [place] [address]Dr. Antonella Medrano Platelet mean volume (Bld) [Entitic vol] 9.9 fL Normal 9.5-13.5 [facility] Comment on above: Performed By: #### C BC ####[facility] [address]qsewd[address] [place] [address]Dr. Antonella Medrano PLT 278 103/ul Normal 150-450 [facility] Comment on above: Performed By: #### C BC ####[facility] Crxmaqxzzi47[address] [place] [address]Dr. Antonella Medrano RBC 4.23 106/ul Normal 4.20-5.40 [facility] Comment on above: Performed By: #### C BC ####[facility] Yss[address]cvfvlq[address] [place] [address]Dr. Antonella Medrano WBC 7.7 103/ul Normal 4.0-11.0 [facility] Comment on above: Performed By: #### C BC ####[facility] Xgsauarbjm[address] [place], [place] [address]Dr. Antonella Medrano MAGNESIUMon 01-02-2023 Magnesium [Mass/Vol] 1.3 mg/dL Critically low 1.8-2.4 [facility] Comment on above: Performed By: #### M G ####[facility] [address]wq[address] [place], [place] [address]Dr. Antonella Medrano POINT OF CARE GLUCOSEon 12-22 Glucose [Mass/Vol] 307 mg/dL Critically high 74-106 [facility] Comment on above: Performed By: #### P OCGLUC ####[facility] S[address]rycgpp13[address] [place], [place] [address]Dr. Antonella Medrano Glucose [Mass/Vol] 242 mg/dL Critically high 74-106 [facility] Comment on above: Performed By: #### P OCGLUC ####[facility] K[address]mhhwaak[address] [place], [place] [address]Dr. Antonella Medrano PROF CHEM 8 (BAS METB)on Anion gap [Moles/Vol] 11.5 mmol/L Normal [facility] Comment on above: Performed By: #### B MP ####[facility] [address]utrmdxj20[address] [place], [place] [address]Dr. Antonella Medrano Calcium [Mass/Vol] 8.5 mg/dL Normal 8.5-10.1 [facility] Comment on above: Performed By: #### B MP ####[facility] Dwknasuccd[address] [place], [place] [address]Dr. Antonella Medrano Chloride [Moles/Vol] 106 mmol/L Normal 98-107 [facility] Comment on above: Performed By: #### B MP ####[facility] [address]vkujezugx7[address] [place], [place] [address]Dr. Antonella Medrano CO2 [Moles/Vol] 25.8 mmol/L Normal 21.0-32.0 [facility] Comment on above: Performed By: #### B MP ####[facility] Qwtwtkkpkj13[address] [place], [place] [address]Dr. Antonella Medrano Creatinine [Mass/Vol] 0.81 mg/dL Normal 0.55-1.02 [facility] Comment on above: Performed By: #### B MP ####[facility] [address]esbt[address] [place] [id number]. Antonella Medrano EGFR-AF INDIAN >60 Normal >=60 [facility] Comment on above: Performed By: #### B MP ####[facility] [address]jvtkfxh[address] [place], [place] [address]Dr. Antonella Medrano EGFR-NON AF INDIAN >60 Normal >=60 [facility] Comment on above: Performed By: #### B MP ####[facility] Vszxxbcxvi16[address] [place] [address]Dr. Antonella Medrano Glucose [Mass/Vol] 185 mg/dL Critically high 74-106 [facility] Comment on above: Performed By: #### B MP ####[facility] [address]xfqluf[address] [place], [place] [address]Dr. Antonella Medrano Potassium [Moles/Vol] 4.3 mmol/L Normal 3.5-5.1 [facility] Comment on above: Performed By: #### B MP ####[facility] [address]xshigtr[address] [place], [place] [address]Dr. Antonella Medrano Sodium [Moles/Vol] 139 mmol/L Normal 136-145 [facility] Comment on above: Performed By: #### B MP ####[facility] Tcvjpkynny[address] [place], [place] [address]Dr. Antonella Medrano Urea nitrogen [Mass/Vol] 17.0 mg/dL Normal 7.0-18.0 [facility] Comment on above: Performed By: #### B MP ####[facility] Wnbyzjgvwp[address] [place], [place] [address]Dr. Antonella Medrano Urea nitrogen/Creatinine [Mass ratio] 21.0 mg/mg Normal [facility] Comment on above: Performed By: #### B MP ####[facility] Jkkmaorkwe[address] [place], [place] [address]Dr. Antonella Medrano CBC AUTO DIFFon 01-01-2023 BASO # 0.0 103/ul Normal 0.0-0.1 [facility] Comment on above: Performed By: #### C BC ####[facility] [address] [place] [id number]. Antonella Medrano Basophils/100 WBC (Bld) 0.3 % Normal 0.2-2.0 [facility] Comment on above: Performed By: #### C BC ####[facility] [facility] Fkcpntminr[address] [place] [id number]. Antonella Medrano EO # 0.1 103/ul Normal 0.0-0.7 [facility] Comment on above: Performed By: #### C BC ####[facility] Qfioyngloj6977 [place] [address]Dr. Antonella Medrano Eosinophils/100 WBC (Bld) 1.4 % Normal 0.9-7.0 [facility] Comment on above: Performed By: #### C BC ####[facility] Yvxurmvedn[address] [place], [place] [address]Dr. Antonella Medrano Erythrocyte distribution width (RBC) [Ratio] 13.9 % Normal 11.0-15.0 [facility] Comment on above: Performed By: #### C BC ####[facility] Yyaceclgex[address] [place], [place] [id number]. Antonella Medrano Hematocrit (Bld) [Volume fraction] 38.0 % Normal 36.0-48.0 [facility] Comment on above: Performed By: #### C BC ####[facility] Mmajdlbvnt[address] [place], [place] [id number]. Antonella Medrano Hemoglobin (Bld) [Mass/Vol] 12.6 g/dL Normal 12.0-16.0 [facility] Comment on above: Performed By: #### C BC ####[facility] Gneszefrcx6346 [place] [id number]. Antonella Medrano IG # 0.15 10e3/ul Critically high 0.00-0.03 [facility] Comment on above: Performed By: #### C BC ####[facility] Popioapsdl4449 [place] [id number]. Antonella Medrano IG % 1.5 % Critically high 0.0-0.5 [facility] Comment on above: Performed By: #### C BC ####[facility] Fssuusdqbg2268 [place] [id number]. Antonella Medrano LYMPH # 1.6 103/ul Normal 1.2-3.8 [facility] Comment on above: Performed By: #### C BC ####[facility] Zokrrkyoun4171 [place], [place] [address]Sc. Antonella Medrano Lymphocytes/100 WBC (Bld) 15.5 % Critically low 20.5-60.0 [facility] Comment on above: Performed By: #### C BC ####[facility] Hadspcmpkq4084 [place] [id number]. Antonella Medrano MANUAL DIFF REQ NO Normal [facility] Comment on above: Performed By: #### C BC ####[facility] Xyxhxxdped7799 [place] [phone]. Antonella Medrano MCH (RBC) [Entitic mass] 29.5 pg Normal 26.7-34.0 [facility] Comment on above: Performed By: #### C BC ####[facility] Lwvhdoyvgp1735 [place] [phone]. Antonella Medrano MCHC (RBC) [Mass/Vol] 33.2 g/dL Normal 29.9-35.2 [facility] Comment on above: Performed By: #### C BC ####[facility] Qtcahgdcdb7376 [place] [phone]. Antonella Medrano MCV (RBC) [Entitic vol] 89.0 fL Normal 81.0-99.0 [facility] Comment on above: Performed By: #### C BC ####[facility] Vfzbadwmbk2531 [place] [phone]. Antonella Medrano MONO # 0.9 103/ul Critically high 0.3-0.8 [facility] Comment on above: Performed By: #### C BC ####[facility] Ndwazecrgc9788 [place] [id number]. Antonella Medrano Monocytes/100 WBC (Bld) 9.4 % Normal 1.7-12.0 [facility] Comment on above: Performed By: #### C BC ####[facility] Dzbrprfxls6326 [place] [phone]. Antonella Medrano NEUT # 7.2 103/ul Critically high 1.4-6.5 [facility] Comment on above: Performed By: #### C BC ####[facility] Xgwmxnvavs5606 [place] [phone]. Antonella Medrano Neutrophils/100 WBC (Bld) 71.9 % Normal 43.0-75.0 [facility] Comment on above: Performed By: #### C BC ####[facility] Mxeeeltokb2221 [place] [phone]. Antonella Medrano Platelet mean volume (Bld) [Entitic vol] 9.8 fL Normal 9.5-13.5 [facility] Comment on above: Performed By: #### C BC ####[facility] Xwchfqxaft2472 [place] [phone]. Antonella Medrano PLT 266 103/ul Normal 150-450 [facility] Comment on above: Performed By: #### C BC ####[facility] Jajlcbgrnk5330 [place] [phone]. Antonella Medrano RBC 4.27 106/ul Normal 4.20-5.40 [facility] Comment on above: Performed By: #### C BC ####[facility] Ztnyzhmvub7061 [place] [phone]. Antonella Medrano WBC 10.0 103/ul Normal 4.0-11.0 [facility] Comment on above: Performed By: #### C BC ####[facility] Jpdfpytyfg425[address] [place], [place] [address]Dr. Antonella Medrano Covid-19 PCR ([facility])on 12-22 SARS-CoV-2 (COVID-19) RNA TAISHA+probe Ql (Unsp spec) Not detected Normal NOT DETECTED [facility] Comment on above: Result Comment: When [...] for this test is supported by the [employer] of [employer] and Human Service's declaration that [...] be used). Performed By: #### C VDTB ####[facility] Fwsoiqkblh89[address] [place], [place] [address]Dr. Antonella Medrano ER URINE PROFILEon 3 Bilirubin Ql (U) Negative Normal NEGATIVE [facility] Comment on above: Performed By: #### HALEY CLARK ####[facility] Jztaxovmsh33[address] [place], [place] [address]Dr. Antonella Medrano Clarity (U) CLEAR Normal CLEAR [facility] Comment on above: Performed By: #### LATA CLARKRO ####[facility] Tszglqynqq7[address] [place], [place] [address]Dr. Antonella Medrano Color (U) LT. YELLOW Normal YELLOW [facility] Comment on above: Performed By: #### LATA CLARKRO ####[facility] Qmgwlfftbo135[address] [place], [place] [address]Dr. Antonella Medrano ERUAHD A micrscopic examina tion will be performed if indicated. Normal [facility] Comment on above: Performed By: #### LATA CLARKRO ####[facility] Qwnyhdxnwc44[address] [place], [place] [address]Dr. Antonella Medrano Glucose Ql (U) 100 mg/dl Abnormal NEGATIVE [facility] Comment on above: Performed By: #### LATA CLARKRO ####[facility] Wvrpnitcbg34[address] [place], [place] [address]Dr. Antonella Medrano Hemoglobin Ql (U) TRACE-INTACT Abnormal NEGATIVE [facility] Comment on above: Performed By: #### HALEY CLARK ####[facility] Ovoalmhfla6075 [place] [address]Dr. Antonella Medrano Ketones Ql (U) Negative Normal NEGATIVE [facility] Comment on above: Performed By: #### HALEY CLARK ####[facility] Mepioijhsz9996 [place] [address]Dr. Antonella Medrano LEUKOCYTES MODERATE Abnormal NEGATIVE [facility] Comment on above: Performed By: #### LATA CLARKRO ####[facility] Sgmwbsrryr4875 [place] [address]Dr. Antonella Medrano Nitrite Ql (U) Negative Normal NEGATIVE [facility] Comment on above: Performed By: #### HALEY CLARK ####[facility] Knxaqhmclz6193 [place] [address]Dr. Antonella Medrano pH (U) 5.5 [pH] Normal 5-9 [facility] Comment on above: Performed By: #### HALEY CLARK ####[facility] Cttqmruqdr13[address] [place], [place] [address]Dr. Antonella Medrano SPEC GRAVITY 1.010 Normal 1.005-<=1.[address] [place] [address] Comment on above: Performed By: #### HALEY CLARK ####[facility] Fubjjpwohi1275 [place] [address]Dr. Antonella Medrano UA PROTEIN TRACE Normal NEGATIVE/ TRACE [facility] Comment on above: Performed By: #### HALEY CLARK ####[facility] Frpobzbory87[address] [place], [place] [address]Dr. Antonella Medrano UR MICRO IND INDICATED Normal [facility] Comment on above: Performed By: #### HALEY CLARK ####[facility] Toplkbdihh88[address] [place], [place] [address]Dr. Antonella Medrano Urobilinogen Qn (U) 0.2 {Oleg'U}/dL Normal 0.2 - 1. 0 [facility] Comment on above: Performed By: #### HALEY CLARK ####[facility] Bmnfpbdvne3439 [place] [address]Dr. Antonella Medrano MAGNESIUMon 01-01-2023 Magnesium [Mass/Vol] 0.9 mg/dL Critically low 1.8-2.4 [facility] Comment on above: Performed By: #### M G ####[facility] Ojnzidogtc2722 [place] [address]Dr. Antonella Medrano POINT OF CARE GLUCOSEon 12-22 Glucose [Mass/Vol] 133 mg/dL Critically high 74-106 [facility] Comment on above: Performed By: #### P OCGLUC ####[facility] Umkpryyvdl8908 [place] [address]Dr. Antonella Medrano Glucose [Mass/Vol] 114 mg/dL Critically high 74-106 [facility] Comment on above: Performed By: #### P OCGLUC ####[facility] Iwzpnhfxbx2455 [place] [address]Dr. Antonella Medrano PROF 14(COMP METB)on 023 Albumin [Mass/Vol] 2.5 g/dL Critically low 3.4-5.0 [facility] Comment on above: Performed By: #### C MP ####[facility] Fsmbrznprp0284 [place] [address]Dr. Antonella Medrano Albumin/Globulin [Mass ratio] 0.7 {ratio} Normal [facility] Comment on above: Performed By: #### C MP ####[facility] Audvkjpikf7741 [place] [address]Dr. Antonella Medrano ALP [Catalytic activity/Vol] 97 U/L Normal 46-116 [facility] Comment on above: Performed By: #### C MP ####[facility] Ktucrlvjkp9532 [place] [address]Dr. Antonella Medrano ALT [Catalytic activity/Vol] 15 U/L Normal 14-59 [facility] Comment on above: Performed By: #### C MP ####[facility] Cvyzqyrdws2731 [place] [address]Dr. Antonella Medrano Anion gap [Moles/Vol] 14.4 mmol/L Normal [facility] Comment on above: Performed By: #### C MP ####[facility] Bwwqniariw9382 [place] [phone]. Antonella Medrano AST [Catalytic activity/Vol] 11 U/L Critically low 15-37 [facility] Comment on above: Performed By: #### C MP ####[facility] Lwwjqahukr5953 [place] [phone]. Antonella Medrano Bilirubin [Mass/Vol] 0.2 mg/dL Normal 0.2-1.0 [facility] Comment on above: Performed By: #### C MP ####[facility] Nhwahferhm[address] [place], [place] [address]Dr. Antonella Medrano Calcium [Mass/Vol] 8.6 mg/dL Normal 8.5-10.1 [facility] Comment on above: Performed By: #### C MP ####[facility] Klechlfdnq20[address] [place], [place] [address]Dr. Antonella Medrano Chloride [Moles/Vol] 105 mmol/L Normal 98-107 [facility] Comment on above: Performed By: #### C MP ####[facility] Jdfgvehhof7[address] [place], [place] [address]Dr. Antonella Medrano CO2 [Moles/Vol] 26.8 mmol/L Normal 21.0-32.0 [facility] Comment on above: Performed By: #### C MP ####[facility] [address]zugfmgwdg0[address] [place], [place] [address]Dr. Antonella Medrano Creatinine [Mass/Vol] 0.83 mg/dL Normal 0.55-1.02 [facility] Comment on above: Performed By: #### C MP ####[facility] Zqkevridqc7311 [place] [phone]. Antonella Medrano EGFR-AF INDIAN >60 Normal >=60 [facility] Comment on above: Performed By: #### C MP ####[facility] Upuuypshoc3209 [place] [phone]. Antonella Medrano EGFR-NON AF INDIAN >60 Normal >=60 [facility] Comment on above: Performed By: #### C MP ####[facility] Gsgsmefkrz7391 [place] [phone]. Antonella Medrano Globulin (S) [Mass/Vol] 3.4 g/dL Normal [facility] Comment on above: Performed By: #### C MP ####[facility] Syotdjkrqu2846 [place] [phone]. Antonella Medrano Glucose [Mass/Vol] 148 mg/dL Critically high 74-106 [facility] Comment on above: Performed By: #### C MP ####[facility] Tydwsfvzer8711 [place] [phone]. Antonella Medrano Potassium [Moles/Vol] 4.2 mmol/L Normal 3.5-5.1 [facility] Comment on above: Performed By: #### C MP ####[facility] Eotniuverp3273 [place] [address]Dr. Antonella Medrano Protein [Mass/Vol] 5.9 g/dL Critically low 6.4-8.2 [facility] Comment on above: Performed By: #### C MP ####[facility] Phdlnnnpda8200 [place] [address]Dr. Antonella Medrano Sodium [Moles/Vol] 142 mmol/L Normal 136-145 [facility] Comment on above: Performed By: #### C MP ####[facility] Gnqsnceceo8130 [place] [address]Dr. Antonella Medrano Urea nitrogen [Mass/Vol] 21.0 mg/dL Critically high 7.0-18.0 [facility] Comment on above: Performed By: #### C MP ####[facility] Ssgjmcndzw7870 [place] [address]Dr. Antonella Medrano Urea nitrogen/Creatinine [Mass ratio] 25.3 mg/mg Normal [facility] Comment on above: Performed By: #### C MP ####[facility] Vkwldbptas5007 [place] [address]Dr. Antonella Medrano URINE MICROSCOPIC ONLYon BACTERIA TRACE Abnormal NONE SEEN [facility] Comment on above: Performed By: #### E HALEY LEE ####[facility] Ykrrdwbydo8139 [place] [address]Dr. Antonella Medrano Bacteria identified Cx Nom (U) INDICATED Normal [facility] Comment on above: Performed By: #### LATA CLARKRO ####[facility] Nftugnflcv2724 [place] [address]Dr. Antonella Medrano CAST NONE SEEN Normal NONE SEEN [facility] Comment on above: Performed By: #### LATA CLARKRO ####[facility] Bqwgohwkhk1128 [place] [address]Dr. Antonella Medrano Crystals LM Nom (Urine sed) NONE SEEN Normal NONE SEEN [facility] Comment on above: Performed By: #### HALEY CLARK ####[facility] Pxhbdjyhyt09[address] [place], [place] [address]Dr. Antonella Medrano Epithelial cells LM Ql (Urine sed) RARE Normal NONE SEEN /RARE [facility] Comment on above: Performed By: #### LATA CLARKRO ####[facility] Xydhlnjfny37[address] [place], [place] [address]Dr. Antonella Medrano MUCOUS NONE SEEN Normal NONE SEEN [facility] Comment on above: Performed By: #### HALEY CLARK ####[facility] Tufbxnmijv2459[address] [place], [place] [address]Dr. Antonella Medrano RBC 2-5 Abnormal 0-2 [facility] Comment on above: Performed By: #### HALEY CLARK ####[facility] Orzvpouvqr823[address] [place], [place] [address]Dr. Antonella Medrano WBC 10-20 Abnormal NONE SEEN [facility] Comment on above: Performed By: #### LATA CLARKRO ####[facility] Bmscjpwime3730[address] [place], [place] [address]Dr. Antonella Medrano CBC AUTO DIFFon 11-13-2022 BASO # 0.0 103/ul Normal 0.0-0.1 [facility] Comment on above: Performed By: #### C BC ####[facility] Cjhdzwskgj20[address] [place], [place] [address]Dr. Antonella Medrano Basophils/100 WBC (Bld) 0.4 % Normal 0.2-2.0 [facility] Comment on above: Performed By: #### C BC ####[facility] Uypguuaisq5676[address] [place], [place] [address]Dr. Antonella Medrano EO # 0.3 103/ul Normal 0.0-0.7 [facility] Comment on above: Performed By: #### C BC ####[facility] Onyjhlfouv1698[address] [place], [place] [address]Dr. Antonella Medrano Eosinophils/100 WBC (Bld) 3.2 % Normal 0.9-7.0 [facility] Comment on above: Performed By: #### C BC ####[facility] Efzeogqfry4950[address] [place], [place] [address]Dr. Antonella Medrano Erythrocyte distribution width (RBC) [Ratio] 13.0 % Normal 11.0-15.0 [facility] Comment on above: Performed By: #### C BC ####[facility] Hyevmvuxpf9504[address] [place], [place] [address]Dr. Antonella Medrano Hematocrit (Bld) [Volume fraction] 39.4 % Normal 36.0-48.0 [facility] Comment on above: Performed By: #### C BC ####[facility] Dtyzfijitt036[address] [place], [place] [address]Dr. Antonella Medrano Hemoglobin (Bld) [Mass/Vol] 13.3 g/dL Normal 12.0-16.0 [facility] Comment on above: Performed By: #### C BC ####[facility] Qapaolnnbg8979[address] [place], [place] [address]Dr. Antonella Medrano IG # 0.08 10e3/ul Critically high 0.00-0.03 [facility] Comment on above: Performed By: #### C BC ####[facility] Fujxkciwuy669[address] [place], [place] [address]Dr. Antonella Medrano IG % 0.9 % Critically high 0.0-0.5 [facility] Comment on above: Performed By: #### C BC ####[facility] Rdspsxmhlq[address] [place], [place] [address]Dr. Mariafilemon Medrano LYMPH # 1.6 103/ul Normal 1.2-3.8 [facility] Comment on above: Performed By: #### C BC ####[facility] Xpxhtpmyxm9764 [place] [address]Dr. Mariafilemon Medrano Lymphocytes/100 WBC (Bld) 18.7 % Critically low 20.5-60.0 [facility] Comment on above: Performed By: #### C BC ####[facility] Vjbzvtxkbt3044 [place] [address]Dr. Mariafilemon Medrano MANUAL DIFF REQ NO Normal [facility] Comment on above: Performed By: #### C BC ####[facility] Chqvivbqhv4024 [place] [address]Dr. Antonella Mitchell MCH (RBC) [Entitic mass] 28.9 pg Normal 26.7-34.0 [facility] Comment on above: Performed By: #### C BC ####[facility] Yedleodnzz5579 [place] [address]Dr. Antonella Mitchell MCHC (RBC) [Mass/Vol] 33.8 g/dL Normal 29.9-35.2 [facility] Comment on above: Performed By: #### C BC ####[facility] Ddjkkacvse6679 [place] [address]Dr. Antonella Medrano MCV (RBC) [Entitic vol] 85.7 fL Normal 81.0-99.0 [facility] Comment on above: Performed By: #### C BC ####[facility] Vlfekeqcdv1597 [place] [address]Dr. Antonella Medrano MONO # 0.9 103/ul Critically high 0.3-0.8 [facility] Comment on above: Performed By: #### C BC ####[facility] Rumjsogxqu9175 [place] [address]Dr. Antonella Medrano Monocytes/100 WBC (Bld) 10.4 % Normal 1.7-12.0 [facility] Comment on above: Performed By: #### C BC ####[facility] Nrnreynpsg8787 [place] [address]Dr. Antonella Medrano NEUT # 5.7 103/ul Normal 1.4-6.5 [facility] Comment on above: Performed By: #### C BC ####[facility] Mhqourpnqr1283 [place] [address]Dr. Atnonella Medrano Neutrophils/100 WBC (Bld) 66.4 % Normal 43.0-75.0 [facility] Comment on above: Performed By: #### C BC ####[facility] Xichsmyxty6723 [place] [address]Dr. Antonella Medrano Platelet mean volume (Bld) [Entitic vol] 10.8 fL Normal 9.5-13.5 [facility] Comment on above: Performed By: #### C BC ####[facility] Rpomxcjiez2176 [place] [address]Dr. Antonella Medrano PLT 255 103/ul Normal 150-450 [facility] Comment on above: Performed By: #### C BC ####[facility] Rznmfwijyc018[address] [place], [place] [address]Dr. Antonella Medrano RBC 4.60 106/ul Normal 4.20-5.40 [facility] Comment on above: Performed By: #### C BC ####[facility] Fjlhsqfmrk9764[address] [place], [place] [address]Dr. Antonella Medrano WBC 8.6 103/ul Normal 4.0-11.0 [facility] Comment on above: Performed By: #### C BC ####[facility] Gidjdpenfq7934[address] [place], [place] [address]Dr. Antonella Medrano POINT OF CARE GLUCOSEon - Glucose [Mass/Vol] 317 mg/dL Critically high 74-106 [facility] Comment on above: Performed By: #### P OCGLUC ####[facility] Aykpjwavep2260[address] [place], [place] [address]Dr. Antonella Medrano Glucose [Mass/Vol] 328 mg/dL Critically high 74-106 [facility] Comment on above: Performed By: #### P OCGLUC ####[facility] Fcisfkromv3715[address] [place], [place] [address]Dr. Antonella Mitchell Glucose [Mass/Vol] 234 mg/dL Critically high 74-106 [facility] Comment on above: Performed By: #### P OCGLUC ####[facility] Nhyvrmhifw8018 [place] [address]Dr. Antonella Medrano Glucose [Mass/Vol] 343 mg/dL Critically high 74-106 [facility] Comment on above: Performed By: #### P OCGLUC ####[facility] Auoprkmzgz2239 [place] [address]Dr. Antonella Medrano Glucose [Mass/Vol] 284 mg/dL Critically high 74-106 [facility] Comment on above: Performed By: #### P OCGLUC ####[facility] Iluhcdiygc41[address] [place], [place] [address]Dr. Mariafilemon Medrano PROF 14(COMP METB)on 11-13- 023 Albumin [Mass/Vol] 2.5 g/dL Critically low 3.4-5.0 [facility] Comment on above: Performed By: #### C MP ####[facility] Ylthhkxuzh699[address] [place], [place] [address]Dr. Antonella Mitchell Albumin/Globulin [Mass ratio] 0.9 {ratio} Normal [facility] Comment on above: Performed By: #### C MP ####[facility] Ygiqyfmtuj0517[address] [place], [place] [address]Dr. Mariafilemon Mitchell ALP [Catalytic activity/Vol] 121 U/L Critically high 46-116 [facility] Comment on above: Performed By: #### C MP ####[facility] Grgjdcremy1313 [place] [address]Dr. Mariafilemon Medrnao ALT [Catalytic activity/Vol] 19 U/L Normal 14-59 [facility] Comment on above: Performed By: #### C MP ####[facility] Okdbqngdcf7503 [place] [address]Dr. Antonella Medrano Anion gap [Moles/Vol] 11.0 mmol/L Normal [facility] Comment on above: Performed By: #### C MP ####[facility] Hkmauglwak036[address] [place], [place] [address]Dr. Antonella Medrano AST [Catalytic activity/Vol] 19 U/L Normal 15-37 [facility] Comment on above: Performed By: #### C MP ####[facility] Gdddwzlcmq4996 [place] [address]Dr. Antonella Medrano Bilirubin [Mass/Vol] 0.3 mg/dL Normal 0.2-1.0 [facility] Comment on above: Performed By: #### C MP ####[facility] Crrzfactoo85[address] [place], [place] [address]Dr. Antonella Medrano Calcium [Mass/Vol] 8.8 mg/dL Normal 8.5-10.1 [facility] Comment on above: Performed By: #### C MP ####[facility] Fxeamuznda19[address] [place], [place] [address]Dr. Antonella Medrano Chloride [Moles/Vol] 103 mmol/L Normal 98-107 [facility] Comment on above: Performed By: #### C MP ####[facility] [address]qekddoqhc[address] [place], [place] [address]Dr. Antonella Medrano CO2 [Moles/Vol] 27.2 mmol/L Normal 21.0-32.0 [facility] Comment on above: Performed By: #### C MP ####[facility] U[address]vfjrrvg[address] [place], [place] [address]Dr. Antonella Medrano Creatinine [Mass/Vol] 0.58 mg/dL Normal 0.55-1.02 [facility] Comment on above: Performed By: #### C MP ####[facility] [address] [place], [place] [address]Dr. Antonella Mitchell EGFR-AF INDIAN >60 Normal >=60 [facility] Comment on above: Performed By: #### C MP ####[facility] Xjbtctmzts[address] [place], [place] [address]Dr. Mariafilemon Mitchell EGFR-NON AF INDIAN >60 Normal >=60 [facility] Comment on above: Performed By: #### C MP ####[facility] Yvmbbgltlo6[address] [place], [place] [address]Dr. Antonella Mitchell Globulin (S) [Mass/Vol] 2.7 g/dL Normal [facility] Comment on above: Performed By: #### C MP ####[facility] [address] [place] [address]Dr. Antonella Medrano Glucose [Mass/Vol] 245 mg/dL Critically high 74-106 T [facility] Comment on above: Performed By: #### C MP ####[facility] Xufagvvmhc[address] [place] [address]Dr. Antonella Mitchell Potassium [Moles/Vol] 4.2 mmol/L Normal 3.5-5.1 [facility] Comment on above: Performed By: #### C MP ####[facility] Qstxipmayn740[address] [place], [place] [address]Dr. Antonella Mitchell Protein [Mass/Vol] 5.2 g/dL Critically low 6.4-8.2 Th [facility] Comment on above: Performed By: #### C MP ####[facility] Jvfvfyqisj3175[address] [place], [place] [address]Dr. Mariafilemon Medrano Sodium [Moles/Vol] 137 mmol/L Normal 136-145 [facility] Comment on above: Performed By: #### C MP ####[facility] Vkmqfbshpn257[address] [place], [place] [address]Dr. Antonella Mitchell Urea nitrogen [Mass/Vol] 24.0 mg/dL Critically high 7.0-18.0 [facility] Comment on above: Performed By: #### C MP ####[facility] Urjuqkmoug3812[address] [place], [place] [address]Dr. Antonella Mitchell Urea nitrogen/Creatinine [Mass ratio] 41.4 mg/mg Normal [facility] Comment on above: Performed By: #### C MP ####[facility] Mtsszfwksq[address] [place], [place] [id number]. Mariafilemon Mitchell CBC AUTO DIFFon 11-12-2022 BASO # 0.0 103/ul Normal 0.0-0.1 [facility] Comment on above: Performed By: #### C BC ####[facility] Xjyyffabyj5[address] [place], [place] [address]Dr. Antonella Medrano Basophils/100 WBC (Bld) 0.5 % Normal 0.2-2.0 The [facility] Comment on above: Performed By: #### C BC ####[facility] Qjrpyiqaol5[address] [place], [place] [address]DrGerman Medrano EO # 0.3 103/ul Normal 0.0-0.7 The [facility] Comment on above: Performed By: #### C BC ####[facility] Dqjtrhlnob697[address] [place], [place] [address]Dr. Antonella Medrano Eosinophils/100 WBC (Bld) 3.5 % Normal 0.9-7.0 The [facility] Comment on above: Performed By: #### C BC ####[facility] Vcalwjgblu3040[address] [place], [place] [address]Dr. Antonella Medrano Erythrocyte distribution width (RBC) [Ratio] 13.1 % Normal 11.0-15.0 [facility] Comment on above: Performed By: #### C BC ####[facility] Cipokkqplv7227[address] [place], [place] [address]Dr. Antonella Medrano Hematocrit (Bld) [Volume fraction] 39.4 % Normal 36.0-48.0 [facility] Comment on above: Performed By: #### C BC ####[facility] Pnwycguunz6440[address] [place], [place] [address]Dr. Antonella Medrano Hemoglobin (Bld) [Mass/Vol] 13.3 g/dL Normal 12.0-16.0 [facility] Comment on above: Performed By: #### C BC ####[facility] Ybpntcndfi2576[address] [place], [place] [address]Dr. Antonella Medrano IG # 0.11 10e3/ul Critically high 0.00-0.03 [facility] Comment on above: Performed By: #### C BC ####[facility] Jqsuiolauz3297[address] [place], [place] [address]Dr. Antonella Medrano IG % 1.3 % Critically high 0.0-0.5 The [facility] Comment on above: Performed By: #### C BC ####[facility] Nwmfjsuhnn6758[address] [place], [place] [address]DrGerman Medrano LYMPH # 2.0 103/ul Normal 1.2-3.8 The [facility] Comment on above: Performed By: #### C BC ####[facility] Jadudjbvcp3292 [place] [address]DrGerman Medrano Lymphocytes/100 WBC (Bld) 22.9 % Normal 20.5-60.0 [facility] Comment on above: Performed By: #### C BC ####[facility] Hxzorfjckn7388[address] [place], [place] [address]DrGerman Medrano MANUAL DIFF REQ NO Normal [facility] Comment on above: Performed By: #### C BC ####[facility] Sqeamhwyvq2485[address] [place], [place] [address]DrGerman Medrano MCH (RBC) [Entitic mass] 29.2 pg Normal 26.7-34.0 [facility] Comment on above: Performed By: #### C BC ####[facility] Tmzhpqgtyf7632[address] [place], [place] [address]DrGerman Medrano MCHC (RBC) [Mass/Vol] 33.8 g/dL Normal 29.9-35.2 [facility] Comment on above: Performed By: #### C BC ####[facility] Abfncddtmr8398[address] [place], [place] [address]DrGerman Medrano MCV (RBC) [Entitic vol] 86.6 fL Normal 81.0-99.0 [facility] Comment on above: Performed By: #### C BC ####[facility] Mffvlyrbzp0590[address] [place], [place] [address]DrGerman Medrano MONO # 0.8 103/ul Normal 0.3-0.8 [facility] Comment on above: Performed By: #### C BC ####[facility] Eakbgiyhbg5422[address] [place], [place] [address]DrGerman Medrano Monocytes/100 WBC (Bld) 9.2 % Normal 1.7-12.0 [facility] Comment on above: Performed By: #### C BC ####[facility] Qgunquxdrb5610[address] [place], [place] [address]DrGerman Medrano NEUT # 5.4 103/ul Normal 1.4-6.5 [facility] Comment on above: Performed By: #### C BC ####[facility] Z[address]nhut[address] [place] [address]Dr. Mariafilemon Medrano Neutrophils/100 WBC (Bld) 62.6 % Normal 43.0-75.0 [facility] Comment on above: Performed By: #### C BC ####[facility] Jvmkjmektx3981 [place] [address]Dr. Mariafilemon Medrano Platelet mean volume (Bld) [Entitic vol] 10.8 fL Normal 9.5-13.5 [facility] Comment on above: Performed By: #### C BC ####[facility] Bzsmliopxr6[address] [place] [address]Dr. Antonella Medrano PLT 247 103/ul Normal 150-450 [facility] Comment on above: Performed By: #### C BC ####[facility] Hlxxrfreav6660[address] [place], [place] [address]Dr. Antonella Medrano RBC 4.55 106/ul Normal 4.20-5.40 [facility] Comment on above: Performed By: #### C BC ####[facility] Codjvgjcaf9369[address] [place], [place] [address]Dr. Antonella Medrano WBC 8.6 103/ul Normal 4.0-11.0 [facility] Comment on above: Performed By: #### C BC ####[facility] Madbzqdgrc79[address] [place] [address]Dr. Antonella Medrano POINT OF CARE GLUCOSEon 10-25 0 Glucose [Mass/Vol] 299 mg/dL Critically high 74-106 [facility] Comment on above: Performed By: #### P OCGLUC ####[facility] Fkaqkuzwlh0483[address] [place], [place] [address]Dr. Antonella Medrano Glucose [Mass/Vol] 232 mg/dL Critically high 74-106 [facility] Comment on above: Performed By: #### P OCGLUC ####[facility] Yivdzphogo37[address] [place] [address]Dr. Antonella Medrano PROF 14(COMP METB)on 023 Albumin [Mass/Vol] 2.4 g/dL Critically low 3.4-5.0 [facility] Comment on above: Performed By: #### C MP ####[facility] Htefebpvyp0014[address] [place], [place] [address]Dr. Antonella Medrano Albumin/Globulin [Mass ratio] 0.8 {ratio} Normal [facility] Comment on above: Performed By: #### C MP ####[facility] Meqpecebxo3213[address] [place], [place] [address]Dr. Antonella Medrano ALP [Catalytic activity/Vol] 115 U/L Normal 46-116 [facility] Comment on above: Performed By: #### C MP ####[facility] Ylcljxncaq0743[address] [place], [place] [address]Dr. Antonella Medrano ALT [Catalytic activity/Vol] 15 U/L Normal 14-59 [facility] Comment on above: Performed By: #### C MP ####[facility] Aykkjfavgh7689[address] [place], [place] [address]Dr. Antonella Medrano Anion gap [Moles/Vol] 11.2 mmol/L Normal [facility] Comment on above: Performed By: #### C MP ####[facility] Nfpoyiyeqh0015[address] [place], [place] [address]Dr. Antonella Medrano AST [Catalytic activity/Vol] 17 U/L Normal 15-37 [facility] Comment on above: Performed By: #### C MP ####[facility] Lrmgzgvfcr9489[address] [place], [place] [address]Dr. Antonella Medrano Bilirubin [Mass/Vol] 0.3 mg/dL Normal 0.2-1.0 [facility] Comment on above: Performed By: #### C MP ####[facility] Pmexdymaua0601[address] [place], [place] [address]Dr. Antonella Medrano Calcium [Mass/Vol] 8.6 mg/dL Normal 8.5-10.1 [facility] Comment on above: Performed By: #### C MP ####[facility] Gzlsrqhgnd7043[address] [place], [place] [address]Dr. Antonella Medrano Chloride [Moles/Vol] 104 mmol/L Normal 98-107 [facility] Comment on above: Performed By: #### C MP ####[facility] Gvlafyctyz[address] [place] [address]Dr. Antonella Medrano CO2 [Moles/Vol] 26.0 mmol/L Normal 21.0-32.0 [facility] Comment on above: Performed By: #### C MP ####[facility] Kiggvgwprq2958 [place] [address]Dr. Antonella Medrano Creatinine [Mass/Vol] 0.62 mg/dL Normal 0.55-1.02 [facility] Comment on above: Performed By: #### C MP ####[facility] Wkxmmeoiql3288[address] [place], [place] [address]Dr. Antonella Medrano EGFR-AF INDIAN >60 Normal >=60 [facility] Comment on above: Performed By: #### C MP ####[facility] Rluranxdyl1486[address] [place], [place] [address]Dr. Antonella Medrano EGFR-NON AF INDIAN >60 Normal >=60 [facility] Comment on above: Performed By: #### C MP ####[facility] Puorlmifcz7187[address] [place], [place] [address]Dr. Antonella Medrano Globulin (S) [Mass/Vol] 3.0 g/dL Normal [facility] Comment on above: Performed By: #### C MP ####[facility] Rgjndfqozd18[address] [place] [address]Dr. Antonella Medrano Glucose [Mass/Vol] 223 mg/dL Critically high 74-106 [facility] Comment on above: Performed By: #### C MP ####[facility] Pngamzizzg8816 [place] [address]Dr. Antonella Medrano Potassium [Moles/Vol] 4.2 mmol/L Normal 3.5-5.1 [facility] Comment on above: Performed By: #### C MP ####[facility] Zkeysxrxva8845 [place] [address]Dr. Antonella Mitchell Protein [Mass/Vol] 5.4 g/dL Critically low 6.4-8.2 Th e [facility] Comment on above: Performed By: #### C MP ####[facility] Neonqgotfv2315 [place] [address]Dr. Antonella Medrano Sodium [Moles/Vol] 137 mmol/L Normal 136-145 [facility] Comment on above: Performed By: #### C MP ####[facility] Hkimpwdiag66[address] [place], [place] [address]Dr. Antonella Medrano Urea nitrogen [Mass/Vol] 20.0 mg/dL Critically high 7.0-18.0 [facility] Comment on above: Performed By: #### C MP ####[facility] Bwrkkieynv088[address] [place], [place] [address]Dr. Antonella Medrano Urea nitrogen/Creatinine [Mass ratio] 32.3 mg/mg Normal [facility] Comment on above: Performed By: #### C MP ####[facility] Ehgoxkznbl0573[address] [place], [place] [address]Dr. Antonella Medrano CBC AUTO DIFFon 11-11-2022 BASO # 0.0 103/ul Normal 0.0-0.1 [facility] Comment on above: Performed By: #### C BC ####[facility] Sdwsvmpyli46[address] [place], [place] [address]Dr. Antonella Medrano Basophils/100 WBC (Bld) 0.5 % Normal 0.2-2.0 [facility] Comment on above: Performed By: #### C BC ####[facility] Adlzryodld1296[address] [place], [place] [address]Dr. Antonella Medrano EO # 0.3 103/ul Normal 0.0-0.7 [facility] Comment on above: Performed By: #### C BC ####[facility] Ccxuwyezot0495[address] [place], [place] [address]Dr. Antonella Mitchell Eosinophils/100 WBC (Bld) 3.4 % Normal 0.9-7.0 [facility] Comment on above: Performed By: #### C BC ####[facility] Yjfipgquwj5003[address] [place], [place] [address]Dr. Antonella Medrano Erythrocyte distribution width (RBC) [Ratio] 13.3 % Normal 11.0-15.0 [facility] Comment on above: Performed By: #### C BC ####[facility] Dkbvfignds6693 [place] [address]Dr. Antonella Medrano Hematocrit (Bld) [Volume fraction] 38.2 % Normal 36.0-48.0 [facility] Comment on above: Performed By: #### C BC ####[facility] Lkfvdyytqh7758[address] [place], [place] [address]DrGerman Medrano Hemoglobin (Bld) [Mass/Vol] 12.5 g/dL Normal 12.0-16.0 [facility] Comment on above: Performed By: #### C BC ####[facility] Ezosjerwlk8689[address] [place], [place] [address]DrGerman Medrano IG # 0.10 10e3/ul Critically high 0.00-0.03 [facility] Comment on above: Performed By: #### C BC ####[facility] Pkukezyvyk1097[address] [place], [place] [address]DrGerman Medrano IG % 1.2 % Critically high 0.0-0.5 [facility] Comment on above: Performed By: #### C BC ####[facility] Wivimoobnl3053[address] [place], [place] [address]DrGerman Medrano LYMPH # 1.9 103/ul Normal 1.2-3.8 [facility] Comment on above: Performed By: #### C BC ####[facility] Owpnwijfcn0605[address] [place], [place] [address]DrGerman Medrano Lymphocytes/100 WBC (Bld) 23.1 % Normal 20.5-60.0 [facility] Comment on above: Performed By: #### C BC ####[facility] Gimnbyzhmp6379[address] [place], [place] [address]DrGerman Medrano MANUAL DIFF REQ NO Normal [facility] Comment on above: Performed By: #### C BC ####[facility] Euigvsnyqk6318[address] [place], [place] [address]DrGerman Medrano MCH (RBC) [Entitic mass] 28.7 pg Normal 26.7-34.0 [facility] Comment on above: Performed By: #### C BC ####[facility] Azluwhxkoc34[address] [place] [address]Dr. Antonella Medrano MCHC (RBC) [Mass/Vol] 32.7 g/dL Normal 29.9-35.2 [facility] Comment on above: Performed By: #### C BC ####[facility] Ighhgxouew1576 [place] [address]Dr. Antonella Medrano MCV (RBC) [Entitic vol] 87.6 fL Normal 81.0-99.0 [facility] Comment on above: Performed By: #### C BC ####[facility] Zphfjyotig549[address] [place], [place] [address]Dr. Antonella Medrano MONO # 0.8 103/ul Normal 0.3-0.8 [facility] Comment on above: Performed By: #### C BC ####[facility] Btxwmrxpyc313[address] [place], [place] [address]Dr. Antonella Medrano Monocytes/100 WBC (Bld) 9.8 % Normal 1.7-12.0 [facility] Comment on above: Performed By: #### C BC ####[facility] Geqyztfzxn7934[address] [place], [place] [address]Dr. Antonella Medrano NEUT # 5.1 103/ul Normal 1.4-6.5 [facility] Comment on above: Performed By: #### C BC ####[facility] Arogovprtr698[address] [place], [place] [address]Dr. Antonella Medrano Neutrophils/100 WBC (Bld) 62.0 % Normal 43.0-75.0 [facility] Comment on above: Performed By: #### C BC ####[facility] Pcvxsjywpd850[address] [place], [place] [address]Dr. Antonella Medrano Platelet mean volume (Bld) [Entitic vol] 11.1 fL Normal 9.5-13.5 [facility] Comment on above: Performed By: #### C BC ####[facility] Hgulowiafj9009[address] [place], [place] [address]Dr. Antonella Medrano PLT 251 103/ul Normal 150-450 [facility] Comment on above: Performed By: #### C BC ####[facility] Vykmryqduo14[address] [place] [address]Dr. Antonella Medrano RBC 4.36 106/ul Normal 4.20-5.40 [facility] Comment on above: Performed By: #### C BC ####[facility] [address]hlxtf[address] [place] [id number]. Antonella Medrano WBC 8.2 103/ul Normal 4.0-11.0 [facility] Comment on above: Performed By: #### C BC ####[facility] Nogdsbdrzl8992 [place] [address]DrGerman Medrano POINT OF CARE GLUCOSEon 10-24 Glucose [Mass/Vol] 282 mg/dL Critically high 74-106 [facility] Comment on above: Performed By: #### P OCGLUC ####[facility] Bnsfjfacuf4085 [place] [address]Dr. Antonella Medrano Glucose [Mass/Vol] 269 mg/dL Critically high 74-106 [facility] Comment on above: Performed By: #### P OCGLUC ####[facility] Vyhhchtfcc7[address] [place], [place] [address]Dr. Antonella Medrano Glucose [Mass/Vol] 255 mg/dL Critically high 74-106 [facility] Comment on above: Performed By: #### P OCGLUC ####[facility] Orrnhqslny2458 [place] [address]DrGerman Medrano PROF 14(COMP METB)on 023 Albumin [Mass/Vol] 2.2 g/dL Critically low 3.4-5.0 [facility] Comment on above: Performed By: #### C MP ####[facility] Akwxrsmdsn16[address] [place] [address]Dr. Antonella Medrano Albumin/Globulin [Mass ratio] 0.7 {ratio} Normal [facility] Comment on above: Performed By: #### C MP ####[facility] Qqbcxksprf9003 [place] [address]Dr. Antonella Medrano ALP [Catalytic activity/Vol] 129 U/L Critically high 46-116 [facility] Comment on above: Performed By: #### C MP ####[facility] Uopjjlkzom7[address] [place] [address]Dr. Antonella Medrano ALT [Catalytic activity/Vol] 14 U/L Normal 14-59 [facility] Comment on above: Performed By: #### C MP ####[facility] Wylbvsmfqs8917 [place] [address]Dr. Antonella Mitchell Anion gap [Moles/Vol] 10.6 mmol/L Normal Th [facility] Comment on above: Performed By: #### C MP ####[facility] Wquqnzizxt2157[address] [place], [place] [address]Dr. Antonella Mitchell AST [Catalytic activity/Vol] 11 U/L Critically low 15-37 [facility] Comment on above: Performed By: #### C MP ####[facility] Bwsyhbhbqi1736[address] [place], [place] [address]Dr. Antonella Mitchell Bilirubin [Mass/Vol] 0.3 mg/dL Normal 0.2-1.0 [facility] Comment on above: Performed By: #### C MP ####[facility] Fjrjunsmxe5617[address] [place], [place] [address]Dr. Antonella Mitchell Calcium [Mass/Vol] 8.4 mg/dL Critically low 8.5-10.1 [facility] Comment on above: Performed By: #### C MP ####[facility] Jgpfezznvr8016[address] [place], [place] [address]Dr. Antonella Mitchell Chloride [Moles/Vol] 105 mmol/L Normal 98-107 [facility] Comment on above: Performed By: #### C MP ####[facility] Nhnlgnsufu3089[address] [place], [place] [address]Dr. Mariafilemon Medrano CO2 [Moles/Vol] 25.1 mmol/L Normal 21.0-32.0 [facility] Comment on above: Performed By: #### C MP ####[facility] Bpvkwhqsaw7749[address] [place], [place] [address]Dr. Antonella Mitchell Creatinine [Mass/Vol] 0.70 mg/dL Normal 0.55-1.02 [facility] Comment on above: Performed By: #### C MP ####[facility] Qcoehmdflr0617 [place] [address]Dr. Antonella Mitchell EGFR-AF INDIAN >60 Normal >=60 [facility] Comment on above: Performed By: #### C MP ####[facility] Seduhnmnab[address] [place] [id number]. Antonella Mitchell EGFR-NON AF INDIAN >60 Normal >=60 [facility] Comment on above: Performed By: #### C MP ####[facility] Ldyuuiuwgg4579 [place] [address]Dr. Antonella Mitchell Globulin (S) [Mass/Vol] 3.1 g/dL Normal [facility] Comment on above: Performed By: #### C MP ####[facility] Ndkniigwsc4525 [place] [address]Dr. Antonella Mitchell Glucose [Mass/Vol] 275 mg/dL Critically high 74-106 [facility] Comment on above: Performed By: #### C MP ####[facility] Auoyvafehw2387 [place] [address]Dr. Antonella Mitchell Potassium [Moles/Vol] 4.7 mmol/L Normal 3.5-5.1 [facility] Comment on above: Performed By: #### C MP ####[facility] Fkqdtkthpa5770 [place] [address]Dr. Antonella Mitchell Protein [Mass/Vol] 5.3 g/dL Critically low 6.4-8.2 Th [facility] Comment on above: Performed By: #### C MP ####[facility] Wopbsjsnnk1250 [place] [address]Dr. Antonella Mitchell Sodium [Moles/Vol] 136 mmol/L Normal 136-145 [facility] Comment on above: Performed By: #### C MP ####[facility] Caigiabaug6836 [place] [address]Dr. Mariafilemon Mitchell Urea nitrogen [Mass/Vol] 27.0 mg/dL Critically high 7.0-18.0 [facility] Comment on above: Performed By: #### C MP ####[facility] Olbcafvtln4147 [place] [address]Dr. Antonella Medrano Urea nitrogen/Creatinine [Mass ratio] 38.6 mg/mg Normal [facility] Comment on above: Performed By: #### C MP ####[facility] Cnuvzslxni8934 [place] [address]Dr. Antonella Mitchell CBC AUTO DIFFon 11-10-2022 BASO # 0.1 103/ul Normal 0.0-0.1 [facility] Comment on above: Performed By: #### C BC ####[facility] Aqxdkwagrz7724[address] [place], [place] [address]Dr. Mariafilemon Medrano Basophils/100 WBC (Bld) 0.6 % Normal 0.2-2.0 [facility] Comment on above: Performed By: #### C BC ####[facility] Sukziixapp39[address] [place], [place] [address]Dr. Antonella Mitchell EO # 0.3 103/ul Normal 0.0-0.7 [facility] Comment on above: Performed By: #### C BC ####[facility] [address]kmqpqrm25[address] [place], [place] [address]Dr. Antonella Mitchell Eosinophils/100 WBC (Bld) 3.4 % Normal 0.9-7.0 [facility] Comment on above: Performed By: #### C BC ####[facility] Haitdvkgvn4736[address] [place], [place] [address]Dr. Antonella Medrano Erythrocyte distribution width (RBC) [Ratio] 13.3 % Normal 11.0-15.0 [facility] Comment on above: Performed By: #### C BC ####[facility] Tlpmcdifjb9[address] [place], [place] [address]Dr. Antonella Medrano Hematocrit (Bld) [Volume fraction] 39.8 % Normal 36.0-48.0 [facility] Comment on above: Performed By: #### C BC ####[facility] Bhqkvmwtjr76[address] [place], [place] [address]Dr. Antonella Medrano Hemoglobin (Bld) [Mass/Vol] 13.2 g/dL Normal 12.0-16.0 [facility] Comment on above: Performed By: #### C BC ####[facility] [address] [place] [address]Dr. Antonella Medrano IG # 0.11 10e3/ul Critically high 0.00-0.03 [facility] Comment on above: Performed By: #### C BC ####[facility] Jbvwrqpffl13[address] [place] [address]Dr. Antonella Medrano IG % 1.3 % Critically high 0.0-0.5 [facility] Comment on above: Performed By: #### C BC ####[facility] Buzsjboqgd19[address] [place] [address]DrGerman Medrano LYMPH # 1.8 103/ul Normal 1.2-3.8 [facility] Comment on above: Performed By: #### C BC ####[facility] Zvjvbilnnv0891 [place] [address]DrGerman Medrano Lymphocytes/100 WBC (Bld) 22.0 % Normal 20.5-60.0 [facility] Comment on above: Performed By: #### C BC ####[facility] Oaonbqtlew6530 [place] [address]DrGerman Medrano MANUAL DIFF REQ NO Normal [facility] Comment on above: Performed By: #### C BC ####[facility] Tthcssnpci7252 [place] [address]DrGerman Medrano MCH (RBC) [Entitic mass] 29.3 pg Normal 26.7-34.0 [facility] Comment on above: Performed By: #### C BC ####[facility] Bhumcwnltx[address] [place] [phone] Medrano MCHC (RBC) [Mass/Vol] 33.2 g/dL Normal 29.9-35.2 [facility] Comment on above: Performed By: #### C BC ####[facility] Utdcwwhngz7126 [place] [phone] Medrano MCV (RBC) [Entitic vol] 88.2 fL Normal 81.0-99.0 [facility] Comment on above: Performed By: #### C BC ####[facility] Yroysvtiik[address] [place] [address]Dr. Antonella Medrano MONO # 0.9 103/ul Critically high 0.3-0.8 [facility] Comment on above: Performed By: #### C BC ####[facility] Dowfzvzjrb8[address] [place] [address]Dr. Antonella Medrano Monocytes/100 WBC (Bld) 11.0 % Normal 1.7-12.0 [facility] Comment on above: Performed By: #### C BC ####[facility] Julwdvpwjg084[address] [place], [place] [address]Dr. Antonella Medrano NEUT # 5.0 103/ul Normal 1.4-6.5 [facility] Comment on above: Performed By: #### C BC ####[facility] Uvvtdrgdpf4039[address] [place], [place] [address]Dr. Antonella Medrano Neutrophils/100 WBC (Bld) 61.7 % Normal 43.0-75.0 [facility] Comment on above: Performed By: #### C BC ####[facility] Amywwmbrel3023[address] [place], [place] [address]Dr. Antonella Medrano Platelet mean volume (Bld) [Entitic vol] 11.0 fL Normal 9.5-13.5 [facility] Comment on above: Performed By: #### C BC ####[facility] Ynwvyvzbfv4[address] [place], [place] [address]Dr. Antonella Medrano PLT 237 103/ul Normal 150-450 [facility] Comment on above: Performed By: #### C BC ####[facility] Lxbgawqylw774[address] [place], [place] [id number]. Antonella Medrano RBC 4.51 106/ul Normal 4.20-5.40 [facility] Comment on above: Performed By: #### C BC ####[facility] Luetqwgode3237[address] [place], [place] [address]Dr. Antonella Medrano WBC 8.2 103/ul Normal 4.0-11.0 [facility] Comment on above: Performed By: #### C BC ####[facility] Ljwqzvgstk80[address] [place] [address]Dr. Antonella Mitchell POINT OF CARE GLUCOSEon 10-24 Glucose [Mass/Vol] 255 mg/dL Critically high 74-106 [facility] Comment on above: Performed By: #### P OCGLUC ####[facility] Maqcddyobc96[address] [place] [address]Dr. Mariafilemon Mitchell Glucose [Mass/Vol] 268 mg/dL Critically high 74-106 [facility] Comment on above: Performed By: #### P OCGLUC ####[facility] Uglomwjxby6855 [place] [address]Dr. Antonella Medrano Glucose [Mass/Vol] 355 mg/dL Critically high 74-106 [facility] Comment on above: Performed By: #### P OCGLUC ####[facility] Tsauovizvy5837[address] [place], [place] [address]Dr. Antonella Mitchell Glucose [Mass/Vol] 318 mg/dL Critically high 74-106 [facility] Comment on above: Performed By: #### P OCGLUC ####[facility] Rqgaphkxmr8074[address] [place], [place] [address]Dr. Antonella Medrano PROF 14(COMP METB)on 023 Albumin [Mass/Vol] 2.3 g/dL Critically low 3.4-5.0 [facility] Comment on above: Performed By: #### C MP ####[facility] Cqppktvcdx22[address] [place] [address]Dr. Antonella Medrano Albumin/Globulin [Mass ratio] 0.9 {ratio} Normal [facility] Comment on above: Performed By: #### C MP ####[facility] Ayfjwavpnj[address] [place], [place] [address]Dr. Antonella Medrano ALP [Catalytic activity/Vol] 153 U/L Critically high 46-116 [facility] Comment on above: Performed By: #### C MP ####[facility] Divzsmxmwf295[address] [place], [place] [address]Dr. Antonella Medrano ALT [Catalytic activity/Vol] 15 U/L Normal 14-59 [facility] Comment on above: Performed By: #### C MP ####[facility] Svbsxupdva4776 [place] [address]Dr. Antonella Medrano Anion gap [Moles/Vol] 12.7 mmol/L Normal [facility] Comment on above: Performed By: #### C MP ####[facility] Rqjybyyslg8553 [place] [address]Dr. Antonella Mitchell AST [Catalytic activity/Vol] 14 U/L Critically low 15-37 [facility] Comment on above: Performed By: #### C MP ####[facility] Eoeeypsriz7407 [place] [address]Dr. Mariafilemon Mitchell Bilirubin [Mass/Vol] 0.3 mg/dL Normal 0.2-1.0 [facility] Comment on above: Performed By: #### C MP ####[facility] Cwcszqmdjj032[address] [place], [place] [address]Dr. Antonella Medrano Calcium [Mass/Vol] 8.3 mg/dL Crit[facility] 8[facility]10[facility] Comment on above: Performed By: #### C MP ####[facility] Hujdxjesar5970[address] [place], [place] [address]Dr. Antonella Medrano Chloride [Moles/Vol] 104 mmol/L Normal 98-107 [facility] Comment on above: Performed By: #### C MP ####[facility] Vcvwugtqnz6948[address] [place], [place] [address]Dr. Mariafilemon Mitchell CO2 [Moles/Vol] 23.8 mmol/L Normal 21.0-32.0 [facility] Comment on above: Performed By: #### C MP ####[facility] Wbxmmctuyb2652[address] [place], [place] [address]Dr. Mariafilemon Mitchell Creatinine [Mass/Vol] 0.73 mg/dL Normal 0.55-1.02 [facility] Comment on above: Performed By: #### C MP ####[facility] Asqhgghcbb437[address] [place], [place] [address]Dr. Antonella Medrano EGFR-AF INDIAN >60 Normal >=60 [facility] Comment on above: Performed By: #### C MP ####[facility] Ogbddtysjz5766 [place] [phone]. Antonella Medrano EGFR-NON AF INDIAN >60 Normal >=60 [facility] Comment on above: Performed By: #### C MP ####[facility] Dzlumnarbz5410 [place] [phone]. Antonella Medrano Globulin (S) [Mass/Vol] 2.6 g/dL Normal [facility] Comment on above: Performed By: #### C MP ####[facility] Qzyopgqdra9281 [place] [phone]. Antonella Medrano Glucose [Mass/Vol] 320 mg/dL Critically high 74-106 T [facility] Comment on above: Performed By: #### C MP ####[facility] Pszmnbdrse3255 [place] [address]Dr. Antonella Medrano Potassium [Moles/Vol] 4.5 mmol/L Normal 3.5-5.1 [facility] Comment on above: Performed By: #### C MP ####[facility] Fagoiexsmk3558[address] [place], [place] [address]Dr. Antonella Medrano Protein [Mass/Vol] 4.9 g/dL Critically low 6.4-8.2 [facility] Comment on above: Performed By: #### C MP ####[facility] Owyrnfgkfv1666[address] [place], [place] [address]Dr. Antonella Medrano Sodium [Moles/Vol] 136 mmol/L Normal 136-145 [facility] Comment on above: Performed By: #### C MP ####[facility] Izfigqdorv7867 [place] [address]Dr. Antonella Medrano Urea nitrogen [Mass/Vol] 27.0 mg/dL Critically high 7.0-18.0 [facility] Comment on above: Performed By: #### C MP ####[facility] Whgfiasbdz6188 [place] [address]Dr. Mariafilemon Mitchell Urea nitrogen/Creatinine [Mass ratio] 37.0 mg/mg Normal [facility] Comment on above: Performed By: #### C MP ####[facility] Rualluemjt7212 [place] [phone]. Antonella Medrano CBC AUTO DIFFon 11-09-2022 BASO # 0.0 103/ul Normal 0.0-0.1 [facility] Comment on above: Performed By: #### C BC ####[facility] Skafgiwgwk6996 [place] [phone]. Antonella Mitchell Basophils/100 WBC (Bld) 0.4 % Normal 0.2-2.0 [facility] Comment on above: Performed By: #### C BC ####[facility] Nkekvxoyjr2554[address] [place], [place] [address]Dr. Antonella Mitchell EO # 0.3 103/ul Normal 0.0-0.7 [facility] Comment on above: Performed By: #### C BC ####[facility] Eqhugickwk8890[address] [place], [place] [address]Dr. Mariafilemon Medrano Eosinophils/100 WBC (Bld) 3.6 % Normal 0.9-7.0 [facility] Comment on above: Performed By: #### C BC ####[facility] Wrdfvsbkwa3976[address] [place], [place] [address]Dr. Antonella Medrano Erythrocyte distribution width (RBC) [Ratio] 13.1 % Normal 11.0-15.0 [facility] Comment on above: Performed By: #### C BC ####[facility] Uyzaewuijo6907[address] [place], [place] [address]Dr. Antonella Medrano Hematocrit (Bld) [Volume fraction] 41.7 % Normal 36.0-48.0 [facility] Comment on above: Performed By: #### C BC ####[facility] Wujfkpllfc9334[address] [place], [place] [address]Dr. Antonella Medrano Hemoglobin (Bld) [Mass/Vol] 13.8 g/dL Normal 12.0-16.0 [facility] Comment on above: Performed By: #### C BC ####[facility] Tkngsleifd432[address] [place], [place] [address]Dr. Antonella Medrano IG # 0.09 10e3/ul Critically high 0.00-0.03 [facility] Comment on above: Performed By: #### C BC ####[facility] Nnabeedviq8756 [place] [address]Dr. Antonella Mitchell IG % 1.1 % Critically high 0.0-0.5 [facility] Comment on above: Performed By: #### C BC ####[facility] Pfjznxfwao1429 [place] [address]DrGerman Antonella Mitchell LYMPH # 1.8 103/ul Normal 1.2-3.8 [facility] Comment on above: Performed By: #### C BC ####[facility] Mlxwxillqs6725 [place] [address]DrGerman Mariafilemon Medrano Lymphocytes/100 WBC (Bld) 21.2 % Normal 20.5-60.0 [facility] Comment on above: Performed By: #### C BC ####[facility] Qajomsxunq4482[address] [place], [place] [address]DrGerman Mariafilemon Medrano MANUAL DIFF REQ NO Normal [facility] Comment on above: Performed By: #### C BC ####[facility] Stverlmvlw[address] [place], [place] [address]Dr. Antonella Mitchell MCH (RBC) [Entitic mass] 28.7 pg Normal 26.7-34.0 [facility] Comment on above: Performed By: #### C BC ####[facility] Yuanpusijc4134[address] [place], [place] [address]Dr. Antonella Mitchell MCHC (RBC) [Mass/Vol] 33.1 g/dL Normal 29.9-35.2 [facility] Comment on above: Performed By: #### C BC ####[facility] Igbprmweph414[address] [place], [place] [address]DrGerman Antonella Mitchell MCV (RBC) [Entitic vol] 86.7 fL Normal 81.0-99.0 [facility] Comment on above: Performed By: #### C BC ####[facility] Cezftlqkcz4896 [place] [phone] Medrano MONO # 0.9 103/ul Critically high 0.3-0.8 [facility] Comment on above: Performed By: #### C BC ####[facility] Igaeuoybrh4352 [place] [phone]. Antonella Medrano Monocytes/100 WBC (Bld) 10.9 % Normal 1.7-12.0 [facility] Comment on above: Performed By: #### C BC ####[facility] Mdprsdjojc2970 [place] [phone]. Antonella Medrano NEUT # 5.2 103/ul Normal 1.4-6.5 [facility] Comment on above: Performed By: #### C BC ####[facility] Ejwqqjztmc7223 [place] [phone]. Antonella Medrano Neutrophils/100 WBC (Bld) 62.8 % Normal 43.0-75.0 [facility] Comment on above: Performed By: #### C BC ####[facility] Feejselbyj0207 [place] [address]Dr. Antonella Medrano Platelet mean volume (Bld) [Entitic vol] 10.6 fL Normal 9.5-13.5 [facility] Comment on above: Performed By: #### C BC ####[facility] Ebqahwpmqk13[address] [place] [address]Dr. Antonella Medrano PLT 270 103/ul Normal 150-450 [facility] Comment on above: Performed By: #### C BC ####[facility] Svgihibnjm8840 [place] [phone]. Antonella Medrano RBC 4.81 106/ul Normal 4.20-5.40 [facility] Comment on above: Performed By: #### C BC ####[facility] Rkyutarczb5936 [place] [phone]. Antonella Medrano WBC 8.3 103/ul Normal 4.0-11.0 [facility] Comment on above: Performed By: #### C BC ####[facility] Vfsivuqcvu8156 [place] [phone]. Antonella Medrano POINT OF CARE GLUCOSEon - Glucose [Mass/Vol] 451 mg/dL Critically high 74-106 T [facility] Comment on above: Performed By: #### P OCGLUC ####[facility] Xmofetbroj2656 [place] [address]Dr. Antonella Medrano Glucose [Mass/Vol] 341 mg/dL Critically high 74-106 [facility] Comment on above: Performed By: #### P OCGLUC ####[facility] Tgxbaboxhb8930 [place] [phone]. Antonella Medrano Glucose [Mass/Vol] 440 mg/dL Critically high 74-106 [facility] Comment on above: Performed By: #### P OCGLUC ####[facility] Lpkowwoyys6241 [place] [address]Dr. Antonella Medrano Glucose [Mass/Vol] 295 mg/dL Critically high 74-106 [facility] Comment on above: Performed By: #### P OCGLUC ####[facility] Rijkghbluu9794 [place] [address]Dr. Antonella Medrano PROF 14(COMP METB)on 023 Albumin [Mass/Vol] 2.4 g/dL Critically low 3.4-5.0 [facility] Comment on above: Performed By: #### C MP ####[facility] Bmuhmzoiwm6290 [place] [address]Dr. Antonella Medrano Albumin/Globulin [Mass ratio] 0.8 {ratio} Normal [facility] Comment on above: Performed By: #### C MP ####[facility] Rrygghivxq3076 [place] [address]Dr. Antonella Medrano ALP [Catalytic activity/Vol] 121 U/L Critically high 46-116 [facility] Comment on above: Performed By: #### C MP ####[facility] Sihmnvttnm8661 [place] [address]Dr. Antonella Medrano ALT [Catalytic activity/Vol] 17 U/L Normal 14-59 [facility] Comment on above: Performed By: #### C MP ####[facility] Otfwhtujph7158 [place] [phone]. Antonella Merdano Anion gap [Moles/Vol] 11.7 mmol/L Normal [facility] Comment on above: Performed By: #### C MP ####[facility] Ipjcscidhv7285 [place] [address]Dr. Antonella Medrano AST [Catalytic activity/Vol] 15 U/L Normal 15-37 [facility] Comment on above: Performed By: #### C MP ####[facility] Eflmjgenxb4840 [place] [phone]. Antonella Medrano Bilirubin [Mass/Vol] 0.4 mg/dL Normal 0.2-1.0 [facility] Comment on above: Performed By: #### C MP ####[facility] Hkcqbrbquy7665 [place] [address]Dr. Antonella Medrano Calcium [Mass/Vol] 8.3 mg/dL Critically low 8.5-10.1 [facility] Comment on above: Performed By: #### C MP ####[facility] Oivcgsotfg0847[address] [place], [place] [address]Dr. Antonella Medrano Chloride [Moles/Vol] 102 mmol/L Normal 98-107 [facility] Comment on above: Performed By: #### C MP ####[facility] Uxdsgjybhp4037[address] [place], [place] [address]Dr. Antonella Medrano CO2 [Moles/Vol] 26.4 mmol/L Normal 21.0-32.0 [facility] Comment on above: Performed By: #### C MP ####[facility] Vwpuiicntn534[address] [place], [place] [address]Dr. Antonella Medrano Creatinine [Mass/Vol] 0.92 mg/dL Normal 0.55-1.02 [facility] Comment on above: Performed By: #### C MP ####[facility] Chloozbgie0155 [place] [phone]. Antonella Mitchell EGFR-AF INDIAN >60 Normal >=60 [facility] Comment on above: Performed By: #### C MP ####[facility] Gqvlscoanh4465[address] [place], [place] [address]Dr. Mariafilemon Mitchell EGFR-NON AF INDIAN >60 Normal >=60 [facility] Comment on above: Performed By: #### C MP ####[facility] Fxjgkgnaha8634 [place] [address]Dr. Antonella Medrano Globulin (S) [Mass/Vol] 3.0 g/dL Normal [facility] Comment on above: Performed By: #### C MP ####[facility] Xiojjzfpru1070 [place] [address]Dr. Antonella Medrano Glucose [Mass/Vol] 285 mg/dL Critically high 74-106 T [facility] Comment on above: Performed By: #### C MP ####[facility] Zmmckgrpqq5622 [place] [address]Dr. Antonella Medrano Potassium [Moles/Vol] 4.1 mmol/L Normal 3.5-5.1 [facility] Comment on above: Performed By: #### C MP ####[facility] Xtpoupykih3145[address] [place], [place] [address]Dr. Antonella Medrano Protein [Mass/Vol] 5.4 g/dL Critically low 6.4-8.2 [facility] Comment on above: Performed By: #### C MP ####[facility] Mxmrurvipa8580[address] [place], [place] [address]Dr. Antonella Medrano Sodium [Moles/Vol] 136 mmol/L Normal 136-145 [facility] Comment on above: Performed By: #### C MP ####[facility] Kjzrdmmmnl757[address] [place], [place] [address]Dr. Antonella Medrano Urea nitrogen [Mass/Vol] 14.0 mg/dL Normal 7.0-18.0 [facility] Comment on above: Performed By: #### C MP ####[facility] Plzfaxjhcy2498[address] [place], [place] [address]Dr. Antonella Medrano Urea nitrogen/Creatinine [Mass ratio] 15.2 mg/mg Normal [facility] Comment on above: Performed By: #### C MP ####[facility] Xpiejsqqcn6229[address] [place], [place] [address]Dr. Antonella Mitchell BLOOD GASES BTYon 11-08-2022 02 MODE ROOM AIR Normal [facility] Comment on above: Performed By: #### A BG ####[facility] Ofslnalaes6071 [place] [address]Dr. Antonella Medrano ALLENS TEST Positive Normal [facility] Comment on above: Performed By: #### A BG ####[facility] Epnziuhiiz9341 [place] [address]Dr. Antonella Medrano Base excess Calc (Bld) [Moles/Vol] 1.5 mmol/L Normal -2.0-2.0 [facility] Comment on above: Performed By: #### A BG ####[facility] Scstkymzqs7585[address] [place], [place] [address]Dr. Antonella Medrano BIPAP PRESSURE Normal [facility] Comment on above: Performed By: #### A BG ####[facility] Igybatnhot2622[address] [place], [place] [address]Dr. nAtonella Medrano CPAP Normal [facility] Comment on above: Performed By: #### A BG ####[facility] Hiojltoawf7686[address] [place], [place] [address]Dr. Antonella Medrano FIO2 Normal [facility] Comment on above: Performed By: #### A BG ####[facility] Nbozuniibo9994[address] [place], [place] [address]Dr. Antonella Medrano HCO3 (Bld) [Moles/Vol] 26.1 mmol/L Critically high 22.0-26 .0 [facility] Comment on above: Performed By: #### A BG ####[facility] Epubygogoq9116[address] [place], [place] [address]Dr. Antonella Medrano LPM Normal [facility] Comment on above: Performed By: #### A BG ####[facility] Orrroawxxf5627[address] [place], [place] [address]Dr. Antonella Medrano MINUTE VOLUME Normal [facility] Comment on above: Performed By: #### A BG ####[facility] Womjrgqpak64[address] [place], [place] [address]Dr. Antonella Medrano Oxygen (Bld) [Partial pressure] 78.1 mm[Hg] Critically low 80.0-100.0 [facility] Comment on above: Performed By: #### A BG ####[facility] Ocpmwbvyyk7795 [place] [address]Dr. Antonella Medrano Oxygen saturation in Blood 97.0 % Normal 95.0-100.0 [facility] Comment on above: Performed By: #### A BG ####[facility] Cbfwtbgueb5935 [place] [address]Dr. Antonella Medrano PCO2 41.0 mmHg Normal 35.0-45.0 [facility] Comment on above: Performed By: #### A BG ####[facility] Fvgjpywvdx6[address] [place], [place] [address]Dr. Antonella Medrano PEEP [facility] Comment on above: Performed By: #### A BG ####[facility] Lnkezdeylf464[address] [place], [place] [address]Dr. Antonella Medrano pH (Bld) 7.412 [pH] Normal 7.350-7.450 [facility] Comment on above: Performed By: #### A BG ####[facility] Uvtsuwpatg66[address] [place], [place] [address]Dr. Antonella Medrano PIP [facility] Comment on above: Performed By: #### A BG ####[facility] Jhpdivlzwn2125[address] [place], [place] [address]Dr. Antonella Medrano PS [facility] Comment on above: Performed By: #### A BG ####[facility] Vscdnixenm87[address] [place], [place] [address]Dr. Antonella Medrano PUNCTURE SITE RR [facility] Comment on above: Performed By: #### A BG ####[facility] Bltlullduc087[address] [place], [place] [address]Dr. Antonella Medrano RATE [facility] Comment on above: Performed By: #### A BG ####[facility] [facility] [address] [place], [place] [address]Dr. Antonella Medrano [facility] Comment on above: Performed By: #### A BG ####[facility] Fjkhqbuwic[address] [place], [place] [address]Dr. Antonella Medrano [place] [facility] Comment on above: Performed By: #### A BG ####[facility] Fp[address]rfgm[address] [place] [id number]. Antonella Mitchell CBC AUTO DIFFon 11-08-2022 BASO # 0.1 103/ul Normal 0.0-0.1 [facility] Comment on above: Performed By: #### C BC ####[facility] Qlrkgjhaxs[address] [place] [address]Dr. Antonella Medrano Basophils/100 WBC (Bld) 0.7 % Normal 0.2-2.0 [facility] Comment on above: Performed By: #### C BC ####[facility] Vmwfpzhrfk[address] [place], [place] [address]Dr. Antnoella Medrano EO # 0.3 103/ul Normal 0.0-0.7 [facility] Comment on above: Performed By: #### C BC ####[facility] Plqgyfeqxo8[address] [place], [place] [address]Dr. Antonella Medrano Eosinophils/100 WBC (Bld) 4.5 % Normal 0.9-7.0 The [facility] Comment on above: Performed By: #### C BC ####[facility] Iremqdovwo63[address] [place], [place] [address]Dr. Antonella Medrano Erythrocyte distribution width (RBC) [Ratio] 13.2 % Normal 11.0-15.0 The [facility] Comment on above: Performed By: #### C BC ####[facility] Coceilczsf3637[address] [place], [place] [address]Dr. Antonella Medrano Hematocrit (Bld) [Volume fraction] 46.0 % Normal 36.0-48.0 The [facility] Comment on above: Performed By: #### C BC ####[facility] Sbjwxpsjbg[address] [place], [place] [address]Dr. Antonella Medrano Hemoglobin (Bld) [Mass/Vol] 15.5 g/dL Normal 12.0-16.0 The [facility] Comment on above: Performed By: #### C BC ####[facility] Dmvhzkltzd87[address] [place], [place] [address]Dr. Antonella Medrano IG # 0.09 10e3/ul Critically high 0.00-0.03 The [facility] Comment on above: Performed By: #### C BC ####[facility] Zxv[address]eupzl[address] [place] [address]Dr. Antonella Medrano IG % 1.2 % Critically high 0.0-0.5 [facility] Comment on above: Performed By: #### C BC ####[facility] Xokymowckp[address] [place] [address]Dr. Antonella Medrano LYMPH # 1.9 103/ul Normal 1.2-3.8 [facility] Comment on above: Performed By: #### C BC ####[facility] Fmdcyynwcz94[address] [place], [place] [address]Dr. Antonella Medrano Lymphocytes/100 WBC (Bld) 25.9 % Normal 20.5-60.0 [facility] Comment on above: Performed By: #### C BC ####[facility] Y[address]ahwavvva8[address] [place], [place] [address]Dr. Mariafilemon Medrano MANUAL DIFF REQ NO Normal [facility] Comment on above: Performed By: #### C BC ####[facility] Ipnarxneqq9355[address] [place], [place] [address]Dr. Antonella Medrano MCH (RBC) [Entitic mass] 28.7 pg Normal 26.7-34.0 [facility] Comment on above: Performed By: #### C BC ####[facility] Odukmcaymu04[address] [place], [place] [address]Dr. Antonella Medrano MCHC (RBC) [Mass/Vol] 33.7 g/dL Normal 29.9-35.2 [facility] Comment on above: Performed By: #### C BC ####[facility] Ncjjadmsfb0933[address] [place], [place] [address]Dr. Antonella Medrano MCV (RBC) [Entitic vol] 85.2 fL Normal 81.0-99.0 [facility] Comment on above: Performed By: #### C BC ####[facility] Stimlgjesa[address] [place], [place] [address]Dr. Antonella Mitchell MONO # 0.7 103/ul Normal 0.3-0.8 The [facility] Comment on above: Performed By: #### C BC ####[facility] Yvbrcyjzgm4765 [place] [phone]. Antonella Medrano Monocytes/100 WBC (Bld) 9.4 % Normal 1.7-12.0 [facility] Comment on above: Performed By: #### C BC ####[facility] Iioxyhbsve0[address] [place] [phone]. Antonella Medrano NEUT # 4.3 103/ul Normal 1.4-6.5 [facility] Comment on above: Performed By: #### C BC ####[facility] Jkdizjgiae01[address] [place] [phone]. Antonella Medrano Neutrophils/100 WBC (Bld) 58.3 % Normal 43.0-75.0 [facility] Comment on above: Performed By: #### C BC ####[facility] Vmtreaozmu3556 [place] [phone]. Antonella Medrano Platelet mean volume (Bld) [Entitic vol] 10.4 fL Normal 9.5-13.5 The [facility] Comment on above: Performed By: #### C BC ####[facility] Ytnvzczodh[address] [place] [phone]. Antonella Medrano PLT 301 103/ul Normal 150-450 [facility] Comment on above: Performed By: #### C BC ####[facility] Aabqqnwtrr024[address] [place] [phone]. Antonella Medrano RBC 5.40 106/ul Normal 4.20-5.40 [facility] Comment on above: Performed By: #### C BC ####[facility] Maajalmswq75[address] [place] [phone]. Antonella Medrano WBC 7.3 103/ul Normal 4.0-11.0 The [facility] Comment on above: Performed By: #### C BC ####[facility] Yrkhwekspf04[address] [place] [phone]. Antonella Medrnao CT CSPINE WO CONon CT CSPINE WO CON Normal The [facility] CT HEAD WO CONon 11-08-2022 CT HEAD WO CON Normal The [facility] CULTURE URINEon 11-08-2022 CULTURE URINE Culture Observations : HEAVY GROWTH OF MIXED GENITAL LUCY. NO POTENTIAL PATHOGENS SEEN. Normal The [facility] Comment on above: Performed By: #### U RCX ####[facility] Vxvcdqcevt20[address] [place] [address]Dr. Antonella Medrano Covid-19 PCR ([facility])on 10-24 SARS-CoV-2 (COVID-19) RNA TAISHA+probe Ql (Unsp spec) Not detected Normal NOT DETECTED The [facility] Comment on above: Result Comment: When [...] for this test is supported by the [employer] and Human Service's declaration that [...] be used). Performed By: #### C VDTBH ####[facility] Shqibvatyu6918[address] [place], [place] [address]Dr. Antonella Medrano ER URINE PROFILEon 3 Bilirubin Ql (U) Negative Normal NEGATIVE The [facility] Comment on above: Performed By: #### U MICRO, ERUR ####[facility] Dpfcmecrua3189[address] [place], [place] [address]Dr. Antonella Medrano Clarity (U) CLEAR Normal CLEAR [facility] Comment on above: Performed By: #### U MICRO, ERUR ####[facility] Vnukrgztbh[address] [place], [place] [address]Dr. Antonella Medrano Color (U) LT. YELLOW Normal YELLOW [facility] Comment on above: Performed By: #### U MICRO, ERUR ####[facility] Slispunxgw[address] [place] [address]Dr. Antonella LABOY A micrscopic examina tion will be performed if indicated. Normal The [facility] Comment on above: Performed By: #### U MICRO, ERUR ####[facility] S[address]ajaf[address] [place] [address]Dr. Antonella Medrano Glucose Ql (U) >1000 Abnormal NEGATIVE The [facility] Comment on above: Performed By: #### U MICRO, ERUR ####[facility] Ksxkeqnivk429[address] [place], [place] [address]Dr. Antonella Medrano Hemoglobin Ql (U) SMALL Abnormal NEGATIVE The [facility] Comment on above: Performed By: #### U MICRO, ERUR ####[facility] Yngsiqqshm5744[address] [place], [place] [address]Dr. Antonella Medrano Ketones Ql (U) Negative Normal NEGATIVE The [facility] Comment on above: Performed By: #### U MICRO, ERUR ####[facility] Cxkixmvzcu220[address] [place], [place] [address]Dr. Antonella Medrano LEUKOCYTES TRACE Abnormal NEGATIVE The [facility] Comment on above: Performed By: #### U MICRO, ERUR ####[facility] Cysghqgaze3124[address] [place], [place] [address]Dr. Antonella Medrano Nitrite Ql (U) Negative Normal NEGATIVE The [facility] Comment on above: Performed By: #### U MICRO, ERUR ####[facility] Marfvcxacc729[address] [place], [place] [address]Dr. Antonella Medrano pH (U) 5.5 [pH] Normal 5-9 The [facility] Comment on above: Performed By: #### U MICRO, ERUR ####[facility] G[address]jzkhuv11[address] [place], [place] [address]Dr. Antonella Medrano Protein (U) [Mass/Vol] 100 mg/dL Abnormal NEGAT LAZ/ TRACE The [facility] Comment on above: Performed By: #### U MICRO, ERUR ####[facility] Gnkesrlgqe[address] [place], [place] [address]Dr. Antonella Medrano SPEC GRAVITY 1.010 Normal 1.005-<=1.0 [facility] Comment on above: Performed By: #### U MICRO, ERUR ####[facility] Irytrqlabr30[address] [place], [place] [address]Dr. Antonella Medrano UR MICRO IND INDICATED Normal [facility] Comment on above: Performed By: #### U MICRO, ERUR ####[facility] Yi[address]cxrwsr18[address] [place], [place] [address]Dr. Antonella Medrano Urobilinogen Qn (U) 0.2 {Oleg'U}/dL Normal 0.2 - 1. 0 [facility] Comment on above: Performed By: #### U MICRO, ERUR ####[facility] Mnimivdypl4664[address] [place], [place] [address]Dr. Antonella Medrano POINT OF CARE GLUCOSEon 10-24 Glucose [Mass/Vol] 290 mg/dL Critically high 74-106 [facility] Comment on above: Performed By: #### P OCGLUC ####[facility] Rqnjoxvqtb[address] [place], [place] [address]Dr. Antonella Medrano PROF 14(COMP METB)on 023 Albumin [Mass/Vol] 3.2 g/dL Crit[facility] low 3.4-5.0 [facility] Comment on above: Performed By: #### H NAI, CMP ####[facility] T[address]qehwvpzi[address] [place], [place] [address]Dr. Antonella Medrano Albumin/Globulin [Mass ratio] 0.8 {ratio} Normal [facility] Comment on above: Performed By: #### H NAI, CMP ####[facility] Urfwtgplub4913[address] [place], [place] [address]Dr. Antonella Medrano ALP [Catalytic activity/Vol] 186 U/L Critically high 46-116 [facility] Comment on above: Performed By: #### H NAI, CMP ####[facility] Jnzntjqmmn[address] [place] [address]Dr. Antonella Medrano ALT [Catalytic activity/Vol] 23 U/L Normal 14-59 [facility] Comment on above: Performed By: #### H ADAIRJAVED, CMP ####[facility] Vwjxydpgph028[address] [place] [phone]. Antonella Medrano Anion gap [Moles/Vol] 11.3 mmol/L Normal Th e [facility] Comment on above: Performed By: #### H STROPN, CMP ####[facility] Beyhivejcn[address] [place] [address]Dr. Antonella Medrano AST [Catalytic activity/Vol] 21 U/L Normal 15-37 [facility] Comment on above: Performed By: #### H NAI, CMP ####[facility] Hpnmpgyidx7553 [place] [address]Dr. Antonella Medrano Bilirubin [Mass/Vol] 0.3 mg/dL Normal 0.2-1.0 [facility] Comment on above: Performed By: #### H NAI, CMP ####[facility] K[address]bbef[address] [place], [place] [address]Dr. Antonella Medrano Calcium [Mass/Vol] 9.6 mg/dL Normal 8.5-10.1 [facility] Comment on above: Performed By: #### H NAI, CMP ####[facility] R[address]cfpjzrek[address] [place], [place] [address]Dr. Antonella Medrano Chloride [Moles/Vol] 98 mmol/L Normal 98-107 [facility] Comment on above: Performed By: #### H NAI, CMP ####[facility] Gadsmrankc434[address] [place], [place] [address]Dr. Antonella Medrano CO2 [Moles/Vol] 30.0 mmol/L Normal 21.0-32.0 [facility] Comment on above: Performed By: #### H STROJAVED, CMP ####[facility] Nulmjqzalc[address] [place] [address]Dr. Antonella Medrano Creatinine [Mass/Vol] 0.75 mg/dL Normal 0.55-1.02 [facility] Comment on above: Performed By: #### H STROPN, CMP ####[facility] Iqqrkxisls6437 [place] [address]Dr. Antonella Medrano EGFR-AF INDIAN >60 Normal >=60 The [facility] Comment on above: Performed By: #### H STROPN, CMP ####[facility] Vczywmhdsd1083 [place] [address]Dr. Antonella Medrano EGFR-NON AF INDIAN >60 Normal >=60 [facility] Comment on above: Performed By: #### H STROPN, CMP ####[facility] Kkrayukkqd6875 [place] [address]Dr. Antonella Medrano Globulin (S) [Mass/Vol] 4.0 g/dL Normal [facility] Comment on above: Performed By: #### H STROPN, CMP ####[facility] Rigfpxcpmq5596 [place] [address]Dr. Antonella Medrano Glucose [Mass/Vol] 292 mg/dL Critically high 74-106 [facility] Comment on above: Performed By: #### H STROPN, CMP ####[facility] Qqyoztemgk[address] [place], [place] [address]Dr. Antonella Medrano Potassium [Moles/Vol] 4.3 mmol/L Normal 3.5-5.1 [facility] Comment on above: Performed By: #### H STROPN, CMP ####[facility] Pophkyrqwv4[address] [place], [place] [address]Dr. Antonella Medrano Protein [Mass/Vol] 7.2 g/dL Normal 6.4-8.2 [facility] Comment on above: Performed By: #### H STROPN, CMP ####[facility] Brdgmdaxhm0[address] [place], [place] [address]Dr. Antonella Medrano Sodium [Moles/Vol] 135 mmol/L Critically low 136-145 [facility] Comment on above: Performed By: #### H STROPN, CMP ####[facility] Ehzcwriand1389[address] [place], [place] [address]Dr. Antonella Medrano Urea nitrogen [Mass/Vol] 14.0 mg/dL Normal 7.0-18.0 [facility] Comment on above: Performed By: #### H STROPN, CMP ####[facility] Solrmyuiqq4084[address] [place], [place] [address]Dr. Antonella Medrano Urea nitrogen/Creatinine [Mass ratio] 18.7 mg/mg Normal [facility] Comment on above: Performed By: #### H NAI, CMP ####[facility] Z[address]qarxq724[address] [place], [place] [address]Dr. Antonella Medrano TROPONIN, HIGH SENSITIVITYon 11-08-2022 HSTROP 69.8 pg/mL Critically high 4.0-51.3 The [facility] Comment on above: Result Comment: CUT- OFF POINTS HAVE BEEN ESTABLISHED BASED ON THE FOURTH UNIVERSAL DEFINITIONS OF MYOCARDIALINFARCTION. THE UPPER REFERENCE LIMIT (URL) OF TROPONIN, DEFINED THE 99TH PERCENTILE OFcTnI DISTRIBUTION IN A REFERENCE POPULATION, HAS BEEN CONFIRMED THE DECISION THRESHOLDFOR OK DIAGNOSIS. Performed By: #### H NAI, CMP ####[facility] Kaaszgqlnf[address] [place], [place] [address]Dr. Antonella Medrano HSTROP 69.8 pg/mL Critically high 4.0-51.3 The [facility] Comment on above: Result Comment: CUT- OFF POINTS HAVE BEEN ESTABLISHED BASED ON THE FOURTH UNIVERSAL DEFINITIONS OF MYOCARDIALINFARCTION. THE UPPER REFERENCE LIMIT (URL) OF TROPONIN, DEFINED THE 99TH PERCENTILE OFcTnI DISTRIBUTION IN A REFERENCE POPULATION, HAS BEEN CONFIRMED THE DECISION THRESHOLDFOR OK DIAGNOSIS. Performed By: #### H NAI ####[facility] Vempcbhizi75[address] [place], [place] [address]Dr. Antonella Medrano URINE MICROSCOPIC ONLYon BACTERIA TRACE Abnormal NONE SEEN The [facility] Comment on above: Performed By: #### U MICRO, ERUR ####[facility] [address]zjjicnqf[address] [place], [place] [address]Dr. Antonella Medrano Bacteria identified Cx Nom (U) INDICATED Normal [facility] Comment on above: Performed By: #### U MICRO, ERUR ####[facility] Idgyaszcgq9835[address] [place], [place] [address]Dr. Antonella Medrano CAST NONE SEEN Normal NONE SEEN The [facility] Comment on above: Performed By: #### U MICRO, ERUR ####[facility] W[address]qzseupa17[address] [place], [place] [address]Dr. Antonella Medrano Crystals LM Nom (Urine sed) NONE SEEN Normal NONE SEEN The [facility] Comment on above: Performed By: #### U MICRO, ERUR ####[facility] Lgzynzmzbk[address] [place] [address]Dr. Antonella Mitchell Epithelial cells LM Ql (Urine sed) FEW Abnormal NONE SEEN /RARE The [facility] Comment on above: Performed By: #### U MICRO, ERUR ####[facility] Grbcoabyja[address] [place] [address]Dr. Marialan Medrano MUCOUS NONE SEEN Normal NONE SEEN The [facility] Comment on above: Performed By: #### U MICRO, ERUR ####[facility] Qjycnlumzc9770 [place] [address]Dr. Antonella Medrano RBC 2-5 Abnormal 0-2 [facility] Comment on above: Performed By: #### U MICRO, ERUR ####[facility] Wuugdnelol9[address] [place] [address]Dr. Antonella Medrano WBC 10-20 Abnormal NONE SEEN The [facility] Comment on above: Performed By: #### U MICRO, ERUR ####[facility] Rtvfrlwlir475[address] [place] [address]Dr. Mariafilemon Medrano YEAST PRESENT Abnormal NONE SEEN The [facility] Comment on above: Result Comment: 3+ b udding Performed By: #### U MICRO, ERUR ####[facility] Iwjqkokpbi8404 [place] [address]Dr. Antonella Medrano XR CHEST 2 Von 11-08-2022 XR CHEST 2 V Normal [facility] XR KNEE RT 4V or >on 023 XR KNEE RT 4V or > Normal [facility] CT CSPINE WO CONon CT CSPINE WO CON Normal [facility] CT HEAD WO CONon 08-23-2022 CT HEAD WO CON Normal [facility] XR CHEST 1 Von 08-23-2022 XR CHEST 1 V Normal [facility] XR HIP LT 2 3V W PELVISon XR HIP LT 2 3V W PELVIS Normal [facility] CULTURE URINEon 08-02-2022 CULTURE URINE Normal [facility] Comment on above: Performed By: #### U RCX ####[facility] Hggluxyawg8[address] [place] [phone]. Antonella Medrano CBC AUTO DIFFon 07-31-2022 BASO # 0.0 103/ul Normal 0.0-0.1 [facility] Comment on above: Performed By: #### C BC ####[facility] Yalwbqaaoj33[address] [place] [phone]. Mariafilemon Medrano Basophils/100 WBC (Bld) 0.4 % Normal 0.2-2.0 [facility] Comment on above: Performed By: #### C BC ####[facility] Wpdyuhjcxb[address] [place], [place] [address]Dr. Mariafilemon Medrano EO # 0.1 103/ul Normal 0.0-0.7 [facility] Comment on above: Performed By: #### C BC ####[facility] Rgadckiwiw347[address] [place], [place] [address]Dr. Mariafilemon Medrano Eosinophils/100 WBC (Bld) 1.3 % Normal 0.9-7.0 [facility] Comment on above: Performed By: #### C BC ####[facility] Vejkqqbafa[address] [place], [place] [address]Dr. Antonella Medrano Erythrocyte distribution width (RBC) [Ratio] 13.4 % Normal 11.0-15.0 The [facility] Comment on above: Performed By: #### C BC ####[facility] Nboniqeuzj7936[address] [place], [place] [address]Dr. Antonella Medrano Hematocrit (Bld) [Volume fraction] 43.4 % Normal 36.0-48.0 The [facility] Comment on above: Performed By: #### C BC ####[facility] Ryxijtxqsi8[address] [place], [place] [address]Dr. Antonella Medrano Hemoglobin (Bld) [Mass/Vol] 14.6 g/dL Normal 12.0-16.0 [facility] Comment on above: Performed By: #### C BC ####[facility] B[address]vrkqyvv70[address] [place], [place] [address]Dr. Antonella Medrano IG # 0.05 10e3/ul Critically high 0.00-0.03 [facility] Comment on above: Performed By: #### C BC ####[facility] Inqnrmpbdt7476 [place] [address]Dr. Mariafilemon Medrano IG % 0.6 % Critically high 0.0-0.5 [facility] Comment on above: Performed By: #### C BC ####[facility] Gkaprwurbp23[address] [place] [address]Dr. Mariafilemon Medrano LYMPH # 1.0 103/ul Critically low 1.2-3.8 [facility] Comment on above: Performed By: #### C BC ####[facility] Hxdeijdoth37[address] [place], [place] [address]Dr. Mariafilemon Medrano Lymphocytes/100 WBC (Bld) 13.4 % Critically low 20.5-60.0 [facility] Comment on above: Performed By: #### C BC ####[facility] Nrtvugqluy39[address] [place], [place] [address]Dr. Antonella Medrano MANUAL DIFF REQ NO Normal [facility] Comment on above: Performed By: #### C BC ####[facility] I[address]btdlqhc7[address] [place], [place] [address]Dr. Antonella Mitchell MCH (RBC) [Entitic mass] 28.9 pg Normal 26.7-34.0 [facility] Comment on above: Performed By: #### C BC ####[facility] M[address]wrsadxb73[address] [place], [place] [address]Dr. Antonella Mitchell MCHC (RBC) [Mass/Vol] 33.6 g/dL Normal 29.9-35.2 [facility] Comment on above: Performed By: #### C BC ####[facility] O[address]bonzajyw6[address] [place], [place] [address]DrGerman Mariafilemon Medrano MCV (RBC) [Entitic vol] 85.9 fL Normal 81.0-99.0 [facility] Comment on above: Performed By: #### C BC ####[facility] Bjqlkifbmi7[address] [place], [place] [address]DrGerman Medrano MONO # 0.7 103/ul Normal 0.3-0.8 [facility] Comment on above: Performed By: #### C BC ####[facility] Wfggjempij2120 [place] [phone]. Antonella Medrano Monocytes/100 WBC (Bld) 9.0 % Normal 1.7-12.0 [facility] Comment on above: Performed By: #### C BC ####[facility] Hguqzmlsnj3208 [place] [phone]. Antonella Medrano NEUT # 5.9 103/ul Normal 1.4-6.5 [facility] Comment on above: Performed By: #### C BC ####[facility] Mdgbpkbtmc1750 [place] [phone]. Antonella Medrano Neutrophils/100 WBC (Bld) 75.3 % Critically high 43.0-75.0 [facility] Comment on above: Performed By: #### C BC ####[facility] Yiwtmjavys1295 [place] [phone]. Antonella Medrano Platelet mean volume (Bld) [Entitic vol] 10.9 fL Normal 9.5-13.5 [facility] Comment on above: Performed By: #### C BC ####[facility] Ixhxkwuhim4404 [place] [phone]. Antonella Medrano PLT 245 103/ul Normal 150-450 [facility] Comment on above: Performed By: #### C BC ####[facility] Kjttiiuobp2454 [place] [phone]. Antonella Medrano RBC 5.05 106/ul Normal 4.20-5.40 [facility] Comment on above: Performed By: #### C BC ####[facility] Eragqxjihw8464 [place] [phone]. Antonella Medrano WBC 7.8 103/ul Normal 4.0-11.0 The [facility] [facility] Comment on above: Performed By: #### C BC ####[facility] [address]xngv[address] [place] [id number]. Antonella Medrano CT ABD/PELV W CONon 07-31-[address] ABD/PELV W CON Normal The [facility] CT CSPINE WO CONon 2 CT CSPINE WO CON Normal The [facility] CT HEAD WO CONon 07-31-2022 CT HEAD WO CON Normal The [facility] ER URINE PROFILEon 2 Bilirubin Ql (U) Negative Normal NEGATIVE The [facility] Comment on above: Performed By: #### U MICRO, ERUR ####[facility] Rlwcxcqasr[address] [place] [address]Dr. Antonella Medrano Clarity (U) CLEAR Normal CLEAR The [facility] Comment on above: Performed By: #### U MICRO, ERUR ####[facility] Blmvzotbrv8[address] [place] [address]Dr. Antonella Medrano Color (U) LT. YELLOW Normal YELLOW The [facility] Comment on above: Performed By: #### U MICRO, ERUR ####[facility] Csacovdrwt[address] [place] [address]Dr. Antonella Medrano ERUAHD A micrscopic examina tion will be performed if indicated. Normal The [facility] Comment on above: Performed By: #### U MICRO, ERUR ####[facility] Yvkwsuuqqr32[address] [place] [address]Dr. Antonella Medrano Glucose Ql (U) >1000 Abnormal NEGATIVE The [facility] Comment on above: Performed By: #### U MICRO, ERUR ####[facility] Olkjdldgiq35[address] [place] [address]Dr. Antonella Medrano Hemoglobin Ql (U) SMALL Abnormal NEGATIVE The [facility] Comment on above: Performed By: #### U MICRO, ERUR ####[facility] Asiwrdsxss57[address] [place] [address]Dr. Antonella Medrano Ketones Ql (U) Negative Normal NEGATIVE The [facility] Comment on above: Performed By: #### U MICRO, ERUR ####[facility] Klpgekndrc[address] [place], [place] [address]Dr. Antonella Medrano LEUKOCYTES Negative Normal NEGATIVE The [facility] Comment on above: Performed By: #### U MICRO, ERUR ####[facility] Vskcsoocty[address] [place], [place] [address]Dr. Antonella Medrano Nitrite Ql (U) Negative Normal NEGATIVE The [facility] Comment on above: Performed By: #### U MICRO, ERUR ####[facility] Ukvpkfdauz0178 [place] [address]DrGerman Medrano pH (U) 5.5 [pH] Normal 5-9 [facility] Comment on above: Performed By: #### U MICRO, ERUR ####[facility] Fbknxoynqj4297 [place] [address]DrGerman Medrano Protein (U) [Mass/Vol] 30 mg/dL Abnormal NEGAT LAZ/ TRACE [facility] Comment on above: Performed By: #### U MICRO, ERUR ####[facility] Lkhpmxguyf[address] [place], [place] [address]Dr. Antonella Medrano SPEC GRAVITY 1.010 Normal 1.005-<=1.0 25 [facility] Comment on above: Performed By: #### U MICRO, ERUR ####[facility] Efuphhrlvp73[address] [place], [place] [address]Dr. Antonella Medrano UR MICRO IND INDICATED Normal [facility] Comment on above: Performed By: #### U MICRO, ERUR ####[facility] Grdwaharhj34[address] [place], [place] [address]Dr. Antonella Medrano Urobilinogen Qn (U) 0.2 {Oleg'U}/dL Normal 0.2 - 1. 0 [facility] Comment on above: Performed By: #### U MICRO, ERUR ####[facility] Szicrrlnhv[address] [place], [place] [address]DrGerman Medrano PROF 14(COMP METB)on 022 Albumin [Mass/Vol] 3.0 g/dL Critically low 3.4-5.0 Th [facility] Comment on above: Performed By: #### C MP ####[facility] Gblctcvluw722[address] [place], [place] [address]DrGerman Medrano Albumin/Globulin [Mass ratio] 0.8 {ratio} Normal [facility] Comment on above: Performed By: #### C MP ####[facility] Ixtnipuuhy5[address] [place], [place] [address]Dr. Antonella Medrano ALP [Catalytic activity/Vol] 136 U/L Critically high 46-116 The [facility] Comment on above: Performed By: #### C MP ####[facility] Hvgbpyaurs3336 [place] [address]Dr. Antonella Medrano ALT [Catalytic activity/Vol] 11 U/L Critically low 14-59 The [facility] Comment on above: Performed By: #### C MP ####[facility] Kytfawddjj38[address] [place] [address]Dr. Antonella Medrano Anion gap [Moles/Vol] 7.7 mmol/L Normal [facility] Comment on above: Performed By: #### C MP ####[facility] Axjzlmyovh4[address] [place], [place] [address]Dr. Antonella Medrano AST [Catalytic activity/Vol] 12 U/L Critically low 15-37 The [facility] Comment on above: Performed By: #### C MP ####[facility] Nurtcbocmr26[address] [place], [place] [address]Dr. Antonella Mitchell Bilirubin [Mass/Vol] 0.3 mg/dL Normal 0.2-1.0 The [facility] Comment on above: Performed By: #### C MP ####[facility] Uunobwqqqb65[address] [place], [place] [address]Dr. Antonella Mitchell Calcium [Mass/Vol] 8.5 mg/dL Normal 8.5-10.1 The [facility] Comment on above: Performed By: #### C MP ####[facility] Ndjhaplwkl425[address] [place], [place] [address]Dr. Antonella Mitchell Chloride [Moles/Vol] 100 mmol/L Normal 98-107 The [facility] Comment on above: Performed By: #### C MP ####[facility] Dundkhfbbj32[address] [place], [place] [address]Dr. Antonella Mitchell CO2 [Moles/Vol] 27.2 mmol/L Normal 21.0-32.0 The [facility] Comment on above: Performed By: #### C MP ####[facility] Ceuvaurvcg5899[address] [place], [place] [address]Dr. Antonella Mitchell Creatinine [Mass/Vol] 1.02 mg/dL Normal 0.55-1.02 [facility] Comment on above: Performed By: #### C MP ####[facility] Vbstlenkwd6973 [place] [address]Dr. Antonella Medrano EGFR-AF INDIAN >60 Normal >=60 [facility] Comment on above: Performed By: #### C MP ####[facility] Svwwbjhjoy3119 [place] [address]Dr. Antonella Mitchell EGFR-NON AF INDIAN 54 mL/min/1.73m2 Critically low >=60 [facility] Comment on above: Performed By: #### C MP ####[facility] Bshghfgegn1655[address] [place], [place] [address]Dr. Antonella Medrano Globulin (S) [Mass/Vol] 3.6 g/dL Normal [facility] Comment on above: Performed By: #### C MP ####[facility] Imgrvdriew9877[address] [place], [place] [address]Dr. Antonella Medrano Glucose [Mass/Vol] 453 mg/dL Critically high 74-106 T [facility] Comment on above: Performed By: #### C MP ####[facility] Keowgrzpuz3[address] [place], [place] [address]Dr. Antonella Medrano Potassium [Moles/Vol] 3.9 mmol/L Normal 3.5-5.1 [facility] Comment on above: Performed By: #### C MP ####[facility] Tnlyaeicfa[address] [place], [place] [address]Dr. Antonella Medrano Protein [Mass/Vol] 6.6 g/dL Normal 6.4-8.2 [facility] Comment on above: Performed By: #### C MP ####[facility] Syovjjlfnk1532[address] [place], [place] [address]Dr. Antonella Medrano Sodium [Moles/Vol] 131 mmol/L Critically low 136-145 Th [facility] Comment on above: Performed By: #### C MP ####[facility] Mdufmghito3328[address] [place], [place] [address]Dr. Antonella Medrano Urea nitrogen [Mass/Vol] 27.0 mg/dL Critically high 7.0-18.0 The [facility] Comment on above: Performed By: #### C MP ####[facility] Eximkjemxd1932[address] [place], [place] [address]Dr. Antonella Medrano Urea nitrogen/Creatinine [Mass ratio] 26.5 mg/mg Normal The [facility] Comment on above: Performed By: #### C MP ####[facility] [address]zvmyrfjtb6[address] [place], [place] [address]Dr. Antonella Medrano URINE MICROSCOPIC ONLYon BACTERIA TRACE Abnormal NONE SEEN The [facility] Comment on above: Performed By: #### U MICRO, ERUR ####[facility] Enaqqxrazg14[address] [place], [place] [address]Dr. Antonella Medrano Bacteria identified Cx Nom (U) INDICATED Normal The [facility] Comment on above: Performed By: #### U MICRO, ERUR ####[facility] Mfetucbvmm039[address] [place], [place] [address]Dr. Antonella Medrano CAST NONE SEEN Normal NONE SEEN The [facility] Comment on above: Performed By: #### U MICRO, ERUR ####[facility] Husbxpwfjk0715[address] [place], [place] [address]Dr. Antonella Medrano Crystals LM Nom (Urine sed) NONE SEEN Normal NONE SEEN The [facility] Comment on above: Performed By: #### U MICRO, ERUR ####[facility] H[address]huuqgkwq26[address] [place], [place] [address]Dr. Antonella Medrano Epithelial cells LM Ql (Urine sed) RARE Normal NONE SEEN /RARE The [facility] Comment on above: Performed By: #### U MICRO, ERUR ####[facility] L[address]wyhqylbt14[address] [place], [place] [address]Dr. Antonella Medrano MUCOUS NONE SEEN Normal NONE SEEN The [facility] Comment on above: Performed By: #### U MICRO, ERUR ####[facility] Uvaokhkvvs2499[address] [place], [place] [address]Dr. Antonella Medrano RBC NONE SEEN Abnormal 0-2 The [facility] Comment on above: Performed By: #### U MICRO, ERUR ####[facility] [address] [place] [address]Ly. Antonella Medrano WBC 5-10 Abnormal NONE SEEN The [facility] Comment on above: Performed By: #### U MICRO, ERUR ####[facility] Orhatgtrav3840 [place] [address]Dr. Antonella Mitchell YEAST PRESENT Abnormal NONE SEEN The [facility] Comment on above: Performed By: #### U MICRO, ERUR ####[facility] Yppwvbwoxk0739 [place] [address]Dr. Antonella Medrano Follow-Upon 07-18-2022 Follow-Up [id number] Rylan Blanc 1955 F Date Provider Department Center 07/18/2022 FANY JACOBS [facility] No family history on file Level of Service:54930 [facility] OFFICE/OUTPATIENT ESTABLISHED MOD MDM 30-39 MIN Reason for Visit and Comments: Edema [[id number]] Coronary Artery Disease [187] Normal [facility] PROF CHEM 8 (BAS METB)on Anion gap [Moles/Vol] 12.7 mmol/L Normal Th e [facility] Comment on above: Performed By: #### B MP ####[facility] Znavqizjgc4177 [place] [address]Dr. Antonella Mitchell Calcium [Mass/Vol] 9.4 mg/dL Normal 8.5-10.1 [facility] Comment on above: Performed By: #### B MP ####[facility] Oueznimpft9[address] [place] [address]Dr. Antonella Medrano Chloride [Moles/Vol] 96 mmol/L Critically low 98-107 The [facility] Comment on above: Performed By: #### B MP ####[facility] Icnphftcsu1409 [place] [address]Dr. Antonella Medrano CO2 [Moles/Vol] 28.2 mmol/L Normal 21.0-32.0 [facility] Comment on above: Performed By: #### B MP ####[facility] Lotvdyukgo7034 [place] [address]Dr. Mariafilemon Medrano Creatinine [Mass/Vol] 0.89 mg/dL Normal 0.55-1.02 [facility] Comment on above: Performed By: #### B MP ####[facility] Zklfuyrjmu35[address] [place] [id number]. Mariafilemon Mitchell EGFR-AF INDIAN >60 Normal >=60 [facility] Comment on above: Performed By: #### B MP ####[facility] Bbhbjpcrwo6578 [place] [id number]. Mariafilemon Mitchell EGFR-NON AF INDIAN >60 Normal >=60 [facility] Comment on above: Performed By: #### B MP ####[facility] Iqdgvcsvuj7963 [place] [id number]. Antonella Medrano Glucose [Mass/Vol] 395 mg/dL Critically high 74-106 [facility] Comment on above: Performed By: #### B MP ####[facility] Gscrkwtlqf3235 [place] [address]Dr. Antonella Medrano Potassium [Moles/Vol] 4.9 mmol/L Normal 3.5-5.1 [facility] Comment on above: Performed By: #### B MP ####[facility] Hbadhoezlq7159 [place] [id number]. Antonella Medrano Sodium [Moles/Vol] 132 mmol/L Critically low 136-145 Th [facility] Comment on above: Performed By: #### B MP ####[facility] Yjeyrkagul9428 [place] [id number]. Antonella Medrano Urea nitrogen [Mass/Vol] 29.0 mg/dL Critically high 7.0-18.0 [facility] Comment on above: Performed By: #### B MP ####[facility] Fjbqswjlgb1555 [place] [id number]. Antonella Medrano Urea nitrogen/Creatinine [Mass ratio] 32.6 mg/mg Normal [facility] Comment on above: Performed By: #### B MP ####[facility] Yhfzxobtaz4954 [place] [phone]. Antonella Medrano POINT OF CARE GLUCOSEon 082 Glucose [Mass/Vol] 82 mg/dL Normal 74-106 [facility] Comment on above: Performed By: #### P OCGLUC ####[facility] Mftcdwmjei7342 [place] [address]Dr. Antonella Medrano Glucose [Mass/Vol] 113 mg/dL Critically high 74-106 [facility] Comment on above: Performed By: #### P OCGLUC ####[facility] Cqtunfikeo0142 [place] [address]Dr. Antonella Medrano PROF 14(COMP METB)on 022 Albumin [Mass/Vol] 2.2 g/dL Critically low 3.4-5.0 [facility] Comment on above: Performed By: #### C MP ####[facility] Kylkkassll0945 [place] [address]Dr. Antonella Medrano Albumin/Globulin [Mass ratio] 0.7 {ratio} Normal [facility] Comment on above: Performed By: #### C MP ####[facility] Pucmomxile20[address] [place], [place] [address]Dr. Antonella Medrano ALP [Catalytic activity/Vol] 80 U/L Normal 46-116 [facility] Comment on above: Performed By: #### C MP ####[facility] Ijdbkkrviy9[address] [place], [place] [address]Dr. Antonella Medrano ALT [Catalytic activity/Vol] 9 U/L Critically low 14-59 [facility] Comment on above: Performed By: #### C MP ####[facility] Fdyxlocgus9852 [place] [address]Dr. Antonella Medrano Anion gap [Moles/Vol] 10.4 mmol/L Normal [facility] Comment on above: Performed By: #### C MP ####[facility] Zhcnufmllc0627 [place] [address]Dr. Antonella Medrano AST [Catalytic activity/Vol] 13 U/L Critically low 15-37 [facility] Comment on above: Performed By: #### C MP ####[facility] Mdmbwetzpe6405 [place] [address]Dr. Antonella Medrano Bilirubin [Mass/Vol] 0.3 mg/dL Normal 0.2-1.0 [facility] Comment on above: Performed By: #### C MP ####[facility] Mriaqulkbl5079 [place] [address]Dr. Antonella Medrano Calcium [Mass/Vol] 7.9 mg/dL Critically low 8.5-10.1 Th e [facility] Comment on above: Performed By: #### C MP ####[facility] Nwlepiyqrh2156 [place] [address]Dr. Antonella Medrano Chloride [Moles/Vol] 107 mmol/L Normal 98-107 [facility] Comment on above: Performed By: #### C MP ####[facility] Eyijtysylo1126 [place] [address]Dr. Antonella Medrano CO2 [Moles/Vol] 20.6 mmol/L Critically low 21.0-32.0 [facility] Comment on above: Performed By: #### C MP ####[facility] Xapkxzjwnb83[address] [place], [place] [address]Dr. Antonella Medrano Creatinine [Mass/Vol] 0.88 mg/dL Normal 0.55-1.02 [facility] Comment on above: Performed By: #### C MP ####[facility] Jwgjergurn2854[address] [place], [place] [address]Dr. Antonella Medrano EGFR-AF INDIAN >60 Normal >=60 [facility] Comment on above: Performed By: #### C MP ####[facility] Ytuzqqnzmf4610 [place] [address]Dr. Antonella Medrano EGFR-NON AF INDIAN >60 Normal >=60 [facility] Comment on above: Performed By: #### C MP ####[facility] Nafkejmkrz7484 [place] [address]Dr. Antonella Medrano Globulin (S) [Mass/Vol] 3.0 g/dL Normal [facility] Comment on above: Performed By: #### C MP ####[facility] Blxylocmvm5256 [place] [address]Dr. Antonella Medrano Glucose [Mass/Vol] 120 mg/dL Critically high 74-106 T [facility] Comment on above: Performed By: #### C MP ####[facility] Bvtkqgaold3740 [place] [address]Dr. Antonella Medrano Potassium [Moles/Vol] 4.0 mmol/L Normal 3.5-5.1 [facility] Comment on above: Performed By: #### C MP ####[facility] Dgotsplycx6663[address] [place], [place] [address]Dr. Mariafilemon Medrano Protein [Mass/Vol] 5.2 g/dL Critically low 6.4-8.2 Th [facility] Comment on above: Performed By: #### C MP ####[facility] Cjvyfequsg875[address] [place], [place] [address]Dr. Mariafilemon Medrano Sodium [Moles/Vol] 134 mmol/L Critically low 136-145 Th [facility] Comment on above: Performed By: #### C MP ####[facility] Jcgdozpazq05[address] [place], [place] [address]Dr. Antonella Medrano Urea nitrogen [Mass/Vol] 25.0 mg/dL Critically high 7.0-18.0 [facility] Comment on above: Performed By: #### C MP ####[facility] Swdpbkpbio1803[address] [place], [place] [address]Dr. Mariafilemon Mitchell Urea nitrogen/Creatinine [Mass ratio] 28.4 mg/mg Normal [facility] Comment on above: Performed By: #### C MP ####[facility] Xwkjuzxlwq7525[address] [place], [place] [address]Dr. Antonella Medrano AMMONIAon 05-13-2022 Ammonia (P) [Moles/Vol] 24 umol/L Normal - [facility] Comment on above: Performed By: #### A MM ####[facility] Uluvubcdlb026[address] [place], [place] [address]Dr. Antonella Medrano BLOOD GASES BTYon 05-13-2022 02 MODE ROOM AIR Normal [facility] Comment on above: Performed By: #### A BG ####[facility] Thgkbaimui88[address] [place], [place] [address]Dr. Antonella Medrano ALLENS TEST Positive Normal [facility] Comment on above: Performed By: #### A BG ####[facility] Lwvvikahzb8027 [place] [address]Dr. Antonella Medrano Base excess Calc (Bld) [Moles/Vol] 0.7 mmol/L Normal -2.0-2.0 [facility] Comment on above: Performed By: #### A BG ####[facility] Dihrmgdjri8546 [place] [address]Dr. Antonella Medrano BIPAP PRESSURE Normal [facility] Comment on above: Performed By: #### A BG ####[facility] Cudjucdvbr98[address] [place], [place] [address]Dr. Antonella Medrano CPAP Normal [facility] Comment on above: Performed By: #### A BG ####[facility] Avzlukflxc25[address] [place], [place] [address]Dr. Antonella Medrano FIO2 Normal [facility] Comment on above: Performed By: #### A BG ####[facility] Xfoisowetw8[address] [place], [place] [address]Dr. Antonella Medrano HCO3 (Bld) [Moles/Vol] 24.4 mmol/L Normal 22.0-26.0 [facility] Comment on above: Performed By: #### A BG ####[facility] Vkywiuvglr0625[address] [place], [place] [address]Dr. Antonella Medrano LPM [facility] Comment on above: Performed By: #### A BG ####[facility] Sxdpeakeyc7[address] [place], [place] [address]Dr. Antonella Medrano MINUTE VOLUME Normal [facility] Comment on above: Performed By: #### A BG ####[facility] Dyhcfdzeqz[address] [place], [place] [address]Dr. Antonella Medrano Oxygen (Bld) [Partial pressure] 36.8 mm[Hg] Critically low 80.0-100.0 [facility] Comment on above: Result Comment: mixe d/venous blood Performed By: #### A BG ####[facility] Vzuiibanxh935[address] [place], [place] [address]Dr. Antonella Medrano Oxygen saturation in Blood 74.3 % Critically low 95.0-100.0 [facility] Comment on above: Result Comment: mixe d/venous blood Performed By: #### A BG ####[facility] Psusatoxbm3987 [place] [address]Dr. Antonella Medrano PCO2 40.2 mmHg Normal 35.0-45.0 [facility] Comment on above: Performed By: #### A BG ####[facility] Lpnszxwtmv5548 [place] [address]Dr. Antonella Medrano PEEP [facility] Comment on above: Performed By: #### A BG ####[facility] Aeucgbhpja2913 [place] [address]Dr. Antonella Medrano pH (Bld) 7.409 [pH] Normal 7.350-7.450 [facility] Comment on above: Performed By: #### A BG ####[facility] Rrbkeogdbq4[address] [place], [place] [address]Dr. Antonella Medrano PIP [facility] Comment on above: Performed By: #### A BG ####[facility] Kxizuukcfv[address] [place], [place] [address]Dr. Antonella Medrano PS [facility] Comment on above: Performed By: #### A BG ####[facility] Mfxiifwyzn00[address] [place], [place] [address]Dr. Antonella Medrano PUNCTURE SITE RR [facility] Comment on above: Performed By: #### A BG ####[facility] Pbztuuesol5[address] [place], [place] [address]Dr. Antonella Medrano RATE [facility] Comment on above: Performed By: #### A BG ####[facility] Gjmnhbhgut[address] [place], [place] [address]Dr. Antonella Medrano VENT MODE [facility] Comment on above: Performed By: #### A BG ####[facility] Hgwsupkozf[address] [place], [place] [address]Dr. Antonella Medrano [place] [facility] Comment on above: Performed By: #### A BG ####[facility] Zvujytbhvt11[address] [place], [place] [address]Dr. Antonella Medrano CARDIAC VICK 3-6on 2 CK [Catalytic activity/Vol] 38 U/L Normal 26-192 [facility] Comment on above: Performed By: #### C MREP ####[facility] Znzzqyhvzt0429 [place] [id number]. Antonella Medrano CK.MB [Mass/Vol] 1.28 ng/mL Normal <=3.60 [facility] Comment on above: Performed By: #### C MREP ####[facility] Jzqljdcfga4894 [place] [id number]. Antonella Medrano HSTROP 58.4 pg/mL Critically high 4.0-51.3 [facility] Comment on above: Result Comment: CUT- OFF POINTS HAVE BEEN ESTABLISHED BASED ON THE FOURTH UNIVERSAL DEFINITIONS OF MYOCARDIALINFARCTION. THE UPPER REFERENCE LIMIT (URL) OF TROPONIN, DEFINED THE 99TH PERCENTILE OFcTnI DISTRIBUTION IN A REFERENCE POPULATION, HAS BEEN CONFIRMED THE DECISION THRESHOLDFOR OK DIAGNOSIS. Performed By: #### C MREP ####[facility] Xmbhrlocmo[address]124 [place] [address]Dr. Antonella Medrano CK [Catalytic activity/Vol] 45 U/L Normal 26-192 [facility] Comment on above: Performed By: #### C MREP ####[facility] Qodusyciut5812 [place] [address]Dr. Antonella Medrano CK.MB [Mass/Vol] 1.53 ng/mL Normal <=3.60 [facility] Comment on above: Performed By: #### C MREP ####[facility] [address] [place] [address]Dr. Antonella Medrano HSTROP 56.7 pg/mL Critically high 4.0-51.3 [facility] Comment on above: Result Comment: CUT- OFF POINTS HAVE BEEN ESTABLISHED BASED ON THE FOURTH UNIVERSAL DEFINITIONS OF MYOCARDIALINFARCTION. THE UPPER REFERENCE LIMIT (URL) OF TROPONIN, DEFINED THE 99TH PERCENTILE OFcTnI DISTRIBUTION IN A REFERENCE POPULATION, HAS BEEN CONFIRMED THE DECISION THRESHOLDFOR OK DIAGNOSIS. Performed By: #### C MREP ####[facility] [address]ol[address] [place] [address]Dr. Antonella Medrano CARDIAC VICK ADMITon 022 CK [Catalytic activity/Vol] 47 U/L Normal 26-192 [facility] Comment on above: Performed By: #### ALICIA PANIAGUA ####[facility] [address]nezfusta[address] [place] [address]Dr. Antonella Medrano CK.MB [Mass/Vol] 1.38 ng/mL Normal <=3.60 [facility] Comment on above: Performed By: #### ALICIA PANIAGUA ####[facility] Pqockgfwaz[address] [place] [address]Dr. Antonella Medrano HSTROP 57.9 pg/mL Critically high 4.0-51.3 [facility] Comment on above: Result Comment: CUT- OFF POINTS HAVE BEEN ESTABLISHED BASED ON THE FOURTH UNIVERSAL DEFINITIONS OF MYOCARDIALINFARCTION. THE UPPER REFERENCE LIMIT (URL) OF TROPONIN, DEFINED THE 99TH PERCENTILE OFcTnI DISTRIBUTION IN A REFERENCE POPULATION, HAS BEEN CONFIRMED THE DECISION THRESHOLDFOR OK DIAGNOSIS. Performed By: #### ALICIA PANIAGUA ####[facility] Ocbhtamyrs[address] [place] [address]Dr. Antonella Medrano CHRISTOPHER 100 ng/mL Critically high 9-82 [facility] Comment on above: Performed By: #### ALICIA PANIAGUA ####[facility] Pbfoahiutp[address] [place] [address]Dr. Antonella Mitchell CBC AUTO DIFFon 05-13-2022 BASO # 0.0 103/ul Normal 0.0-0.1 [facility] Comment on above: Performed By: #### C BC ####[facility] Bkqwxbdmqd44[address] [place] [address]Dr. Antonella Mitchell Basophils/100 WBC (Bld) 0.3 % Normal 0.2-2.0 [facility] Comment on above: Performed By: #### C BC ####[facility] Hznlqjtfvg027[address] [place] [address]Dr. Mariafilemon Medrano EO # 0.1 103/ul Normal 0.0-0.7 [facility] Comment on above: Performed By: #### C BC ####[facility] Ilvkagwnqm[address] [place] [address]Dr. Antonella Medrano Eosinophils/100 WBC (Bld) 1.6 % Normal 0.9-7.0 [facility] Comment on above: Performed By: #### C BC ####[facility] Ikr[address] [place], [place] [address]Dr. Antonella Medrano Erythrocyte distribution width (RBC) [Ratio] 13.7 % Normal 11.0-15.0 [facility] Comment on above: Performed By: #### C BC ####[facility] [address]tepuxgxoz[address] [place], [place] [address]Dr. Antonella Medrano Hematocrit (Bld) [Volume fraction] 43.1 % Normal 36.0-48.0 [facility] Comment on above: Performed By: #### C BC ####[facility] Dwefgeqmak07[address] [place], [place] [address]Dr. Antonella Medrano Hemoglobin (Bld) [Mass/Vol] 14.1 g/dL Normal 12.0-16.0 [facility] Comment on above: Performed By: #### C BC ####[facility] K[address]gu[address]utf[address]33[address] [place], [place] [address]Dr. Antonella Medrano IG # 0.10 10e3/ul Critically high 0.00-0.03 [facility] Comment on above: Performed By: #### C BC ####[facility] Rpktsipney34[address] [place], [place] [address]Dr. Antonella Medrano IG % 1.2 % Critically high 0.0-0.5 [facility] Comment on above: Performed By: #### C BC ####[facility] Cobulcsiid95[address] [place], [place] [address]Dr. Antonella Medrano LYMPH # 2.3 103/ul Normal 1.2-3.8 [facility] Comment on above: Performed By: #### C BC ####[facility] Ifgqtqgvsc9[address] [place], [place] [address]Dr. Antonella Medrano Lymphocytes/100 WBC (Bld) 26.2 % Normal 20.5-60.0 [facility] Comment on above: Performed By: #### C BC ####[facility] [address] [place] [id number]. Antonella Medrano MANUAL DIFF REQ NO Normal [facility] Comment on above: Performed By: #### C BC ####[facility] Lyaoyxjzdj88[address] [place] [address]Dr. Antonella Medrano MCH (RBC) [Entitic mass] 28.8 pg Normal 26.7-34.0 [facility] Comment on above: Performed By: #### C BC ####[facility] Eqonsrummx6576 [place] [address]Dr. Antonella Medrano MCHC (RBC) [Mass/Vol] 32.7 g/dL Normal 29.9-35.2 [facility] Comment on above: Performed By: #### C BC ####[facility] Vjjianqekw[address] [place] [address]Dr. Antonella Mitchell MCV (RBC) [Entitic vol] 88.0 fL Normal 81.0-99.0 [facility] Comment on above: Performed By: #### C BC ####[facility] Ktznwghs[address] [place], [place] [address]Dr. Antonella Mitchell MONO # 0.8 103/ul Normal 0.3-0.8 [facility] Comment on above: Performed By: #### C BC ####[facility] P[address]guojchh[address] [place], [place] [address]Dr. Mariafilemon Medrano Monocytes/100 WBC (Bld) 9.3 % Normal 1.7-12.0 [facility] Comment on above: Performed By: #### C BC ####[facility] Curjxdfdpu17[address] [place], [place] [address]Dr. Antonella Medrano NEUT # 5.3 103/ul Normal 1.4-6.5 [facility] Comment on above: Performed By: #### C BC ####[facility] Obzdxzrcsj3[address] [place], [place] [address]Dr. Mariafilemon Medrano Neutrophils/100 WBC (Bld) 61.4 % Normal 43.0-75.0 [facility] Comment on above: Performed By: #### C BC ####[facility] Tvxldsbivn4[address] [place] [address]Dr. Antonella Medrano Platelet mean volume (Bld) [Entitic vol] 10.6 fL Normal 9.5-13.5 [facility] Comment on above: Performed By: #### C BC ####[facility] Wdkwelzlmv18[address] [place] [address]Dr. Antonella Medrano PLT 291 103/ul Normal 150-450 [facility] Comment on above: Performed By: #### C BC ####[facility] Odgmxcwnyz029[address] [place], [place] [address]Dr. Antonella Medrano RBC 4.90 106/ul Normal 4.20-5.40 [facility] Comment on above: Performed By: #### C BC ####[facility] Wyyfehctfa6[address] [place], [place] [address]Dr. Antonella Medrano WBC 8.7 103/ul Normal 4.0-11.0 [facility] Comment on above: Performed By: #### C BC ####[facility] Qhbnntcoau7[address] [place], [place] [address]Dr. Antonella Medrano BASO # 0.1 103/ul Normal 0.0-0.1 [facility] Comment on above: Performed By: #### C BC ####[facility] Dupuzpxuja39[address] [place], [place] [address]Dr. Antonella Medrano Basophils/100 WBC (Bld) 0.5 % Normal 0.2-2.0 [facility] Comment on above: Performed By: #### C BC ####[facility] Zjtzwokdap440[address] [place], [place] [address]Dr. Antonella Medrano EO # 0.1 103/ul Normal 0.0-0.7 [facility] Comment on above: Performed By: #### C BC ####[facility] Acizdywisr5[address] [place], [place] [address]Dr. Antonella Medrano Eosinophils/100 WBC (Bld) 1.3 % Normal 0.9-7.0 [facility] Comment on above: Performed By: #### C BC ####[facility] Qigw[address]nkqj9[address] [place], [place] [address]Dr. Antonella Mitchell Erythrocyte distribution width (RBC) [Ratio] 13.7 % Normal 11.0-15.0 [facility] Comment on above: Performed By: #### C BC ####[facility] [address]mw[address]zzf[address] [place] [address]Dr. Antonella Medrano Hematocrit (Bld) [Volume fraction] 45.2 % Normal 36.0-48.0 [facility] Comment on above: Performed By: #### C BC ####[facility] Nzymkedejh0218[address] [place], [place] [address]Dr. Antonella Medrano Hemoglobin (Bld) [Mass/Vol] 14.9 g/dL Normal 12.0-16.0 [facility] Comment on above: Performed By: #### C BC ####[facility] Rzloliznhj0[address] [place], [place] [address]Dr. Antonella Medrano IG # 0.14 10e3/ul Critically high 0.00-0.03 [facility] Comment on above: Performed By: #### C BC ####[facility] Rsxwwcucud4599[address] [place], [place] [address]Dr. Antonella Medrano IG % 1.4 % Critically high 0.0-0.5 [facility] Comment on above: Performed By: #### C BC ####[facility] Mdlqtocevz78[address] [place], [place] [address]Dr. Mariafilemon Medrano LYMPH # 1.7 103/ul Normal 1.2-3.8 [facility] Comment on above: Performed By: #### C BC ####[facility] Isyhsaorke6[address] [place], [place] [address]Dr. Mariafilemon Medrano Lymphocytes/100 WBC (Bld) 16.1 % Critically low 20.5-60.0 [facility] Comment on above: Performed By: #### C BC ####[facility] Vkpwxhtrpk23[address] [place], [place] [address]Dr. Mariafilemon Medrano MANUAL DIFF REQ NO Normal [facility] Comment on above: Performed By: #### C BC ####[facility] Xhcfaolmad95[address] [place], [place] [address]Dr. Antonella Medrano MCH (RBC) [Entitic mass] 29.0 pg Normal 26.7-34.0 [facility] Comment on above: Performed By: #### C BC ####[facility] Tksbpcgtwl40[address] [place], [place] [address]Dr. Antonella Medrano MCHC (RBC) [Mass/Vol] 33.0 g/dL Normal 29.9-35.2 [facility] Comment on above: Performed By: #### C BC ####[facility] Voljbgvkbr1998[address] [place], [place] [address]Dr. Antonella Mitchell MCV (RBC) [Entitic vol] 87.9 fL Normal 81.0-99.0 [facility] Comment on above: Performed By: #### C BC ####[facility] Xcyqygwxpx33[address] [place], [place] [address]Dr. Antonella Medrano MONO # 1.0 103/ul Critically high 0.3-0.8 [facility] Comment on above: Performed By: #### C BC ####[facility] J[address]avmlsfa[address] [place], [place] [address]Dr. Antonella Medrano Monocytes/100 WBC (Bld) 9.2 % Normal 1.7-12.0 [facility] Comment on above: Performed By: #### C BC ####[facility] Xvdmeevlqw88[address] [place], [place] [address]Dr. Antonella Medrano NEUT # 7.4 103/ul Critically high 1.4-6.5 [facility] Comment on above: Performed By: #### C BC ####[facility] Coejtpgurc01[address] [place], [place] [address]Dr. Antonella Medrano Neutrophils/100 WBC (Bld) 71.5 % Normal 43.0-75.0 [facility] Comment on above: Performed By: #### C BC ####[facility] Mrzzgoofew034[address] [place], [place] [address]Dr. Antonella Medrano Platelet mean volume (Bld) [Entitic vol] 10.4 fL Normal 9.5-13.5 [facility] Comment on above: Performed By: #### C BC ####[facility] [address] [place], [place] [address]Nu. Antonella Medrano PLT 289 103/ul Normal 150-450 [facility] Comment on above: Performed By: #### C BC ####[facility] [address] [place] [id number]. Antonella Medrano RBC 5.14 106/ul Normal 4.20-5.40 [facility] Comment on above: Performed By: #### C BC ####[facility] Fa[address]lusady[address] [place] [id number]. Antonella Medrano WBC 10.3 103/ul Normal 4.0-11.0 [facility] Comment on above: Performed By: #### C BC ####[facility] Qosxcatrnf[address] [place] [id number]. Antonella Medrano CT HEAD WO CONon 05-13-2022 CT HEAD WO CON Normal [facility] CULTURE URINEon 05-13-2022 CULTURE URINE Culture Observations : HEAVY GROWTH OF MIXED GENITAL LUCY. NO POTENTIAL PATHOGENS SEEN. Normal [facility] Comment on above: Performed By: #### U RCX ####[facility] [address]wt[address] [place] [id number]. Antonella Medrano Covid-19 PCR ([facility])on 04-24 SARS-CoV-2 (COVID-19) RNA TAISHA+probe Ql (Unsp spec) Not detected Normal NOT DETECTED [facility] Comment on above: Result Comment: When [...] for this test is supported by the [place] of [employer] and Human Service's declaration that [...] be used). Performed By: #### C VDTB ####[facility] [address]fc[address] [place] [address]Dr. Antonella Medrano ER URINE PROFILEon 2 Bilirubin Ql (U) Negative Normal NEGATIVE [facility] Comment on above: Performed By: #### U MICRO, ERUR ####[facility] Pdwuenngbf[address] [place] [address]Dr. Antonella Medrano Clarity (U) CLEAR Normal CLEAR [facility] Comment on above: Performed By: #### U MICRO, ERUR ####[facility] Aiymeddcut9[address] [place], [place] [address]Dr. Antonella Medrano Color (U) YELLOW Normal YELLOW [facility] Comment on above: Performed By: #### U MICRO, ERUR ####[facility] Rytrtbhlnx85[address] [place], [place] [address]Dr. Antonella Medrano ERUAHD A micrscopic examina tion will be performed if indicated. Normal [facility] Comment on above: Performed By: #### U MICRO, ERUR ####[facility] Foeuyesmoe[address] [place], [place] [address]Dr. Antonella Medrano Glucose Ql (U) >1000 Abnormal NEGATIVE [facility] Comment on above: Performed By: #### U MICRO, ERUR ####[facility] Imfsbcwbig24[address] [place] [address]Dr. Antonella Medrano Hemoglobin Ql (U) SMALL Abnormal NEGATIVE [facility] Comment on above: Performed By: #### U MICRO, ERUR ####[facility] Zyjiqugwxz38[address] [place] [address]Dr. Antonella Medrano Ketones Ql (U) Negative Normal NEGATIVE [facility] Comment on above: Performed By: #### U MICRO, ERUR ####[facility] Otdzmgqnyu85[address] [place] [address]Dr. Antonella Medrano LEUKOCYTES SMALL Abnormal NEGATIVE [facility] Comment on above: Performed By: #### U MICRO, ERUR ####[facility] Vnamycjfel4210 [place] [address]Dr. Antonella Medrano Nitrite Ql (U) Negative Normal NEGATIVE [facility] Comment on above: Performed By: #### U MICRO, ERUR ####[facility] Mcxhxvsqza26[address] [place], [place] [address]Dr. Antonella Medrano pH (U) 5.5 [pH] Normal 5-9 [facility] Comment on above: Performed By: #### U MICRO, ERUR ####[facility] Qjjsrwpqjg8[address] [place], [place] [address]Dr. Antonella Medrano Protein (U) [Mass/Vol] 100 mg/dL Abnormal NEGAT LAZ/ TRACE [facility] Comment on above: Performed By: #### U MICRO, ERUR ####[facility] Vcjmdhxdry64[address] [place], [place] [address]Dr. Antonella Medrano SPEC GRAVITY >=1.030 Abnormal 1.005-<=1.0 25 [facility] Comment on above: Performed By: #### U MICRO, ERUR ####[facility] Pdvmyalrpm27[address] [place], [place] [address]Dr. Antonella Medrano UR MICRO IND INDICATED Normal [facility] Comment on above: Performed By: #### U MICRO, ERUR ####[facility] Ounfmzarvm9[address] [place], [place] [address]Dr. Antonella Medrano Urobilinogen Qn (U) 0.2 {Oleg'U}/dL Normal 0.2 - 1. 0 [facility] Comment on above: Performed By: #### U MICRO, ERUR ####[facility] Wdrormqssw6947[address] [place], [place] [address]Dr. Antonella Medrano ETHANOL (BLD AL[facility])on 05-13-20 ALC NOTE NOTE: 80 mg/dl is th e legal limit for a blood alcohol level Normal [facility] Comment on above: Performed By: #### E TH ####[facility] Ipxvwjpakw1823[address] [place], [place] [address]Dr. Antonella Medrano Ethanol [Mass/Vol] mg/dL Normal [facility] Comment on above: Performed By: #### E TH ####[facility] Dvhoasrzsl[address] [place] [address]Dr. Antonella Medrano LACTATE/LACTIC ACIDon 2021 Lactate [Moles/Vol] 1.3 mmol/L Normal 0.4-1.9 [facility] Comment on above: Performed By: #### L ACT ####[facility] Ekzstonhca[address] [place] [address]Dr. Mariafilemon Mitchell POINT OF CARE GLUCOSEon 04-24 Glucose [Mass/Vol] 164 mg/dL Critically high 74-106 [facility] Comment on above: Performed By: #### P OCGLUC ####[facility] Hdrxixupht9[address] [place], [place] [address]Dr. Antonella Medrano Glucose [Mass/Vol] 172 mg/dL Critically high -[address] [place] [address] Comment on above: Performed By: #### P OCGLUC ####[facility] Nlaltwyhmw23[address] [place], [place] [address]Dr. Antonella Medrano Performed By: #### B MP ####[facility] Giudpndula[address] [place], [place] [address]Dr. Mariafilemon Mitchell Glucose [Mass/Vol] 253 mg/dL Critically high -106 [facility] Comment on above: Performed By: #### P OCGLUC ####[facility] Djwiueagog8[address] [place], [place] [address]Dr. Antonella Mitchell Glucose [Mass/Vol] 146 mg/dL Critically high [address] [place] [address] Comment on above: Performed By: #### P OCGLUC ####[facility] Jqkfccnyhd62[address] [place], [place] [address]Dr. Antonella Medrano PROF CHEM 8 (BAS METB)on Anion gap [Moles/Vol] 11.4 mmol/L Normal [facility] Comment on above: Performed By: #### B MP ####[facility] Xkyvjvmvtm[address] [place], [place] [address]Dr. Antonella Medrano Calcium [Mass/Vol] 8.4 mg/dL Critically low 8.5-10.1 [facility] Comment on above: Performed By: #### B MP ####[facility] Cqglpyuglw74[address] [place] [address]Dr. Antonella Medrano Chloride [Moles/Vol] 101 mmol/L Normal 98-107 [facility] Comment on above: Performed By: #### B MP ####[facility] Jijelimrub[address] [place] [address]Dr. Antonella Medrano CO2 [Moles/Vol] 26.5 mmol/L Normal 21.0-32.0 [facility] Comment on above: Performed By: #### B MP ####[facility] Zkxookrmtc6[address] [place], [place] [address]Dr. Mariafilemon Mitchell Creatinine [Mass/Vol] 1.06 mg/dL Critically high 0.55-1.02 [facility] Comment on above: Performed By: #### B MP ####[facility] Enhpeaveqr9[address] [place], [place] [address]Dr. Mariafilemon Mitchell EGFR-AF INDIAN >60 Normal >=60 [facility] Comment on above: Performed By: #### B MP ####[facility] Ghwcyrxzbu19[address] [place], [place] [address]Dr. Mariafilemon Mitchell EGFR-NON AF INDIAN 52 mL/min/1.73m2 Critically low >=60 [facility] Comment on above: Performed By: #### B MP ####[facility] Woxfcnujew[address] [place], [place] [address]Dr. Antonella Medrano Potassium [Moles/Vol] 3.9 mmol/L Normal 3.5-5.1 [facility] Comment on above: Performed By: #### B MP ####[facility] M[address]uxehfhl50[address] [place], [place] [address]Dr. Antonella Medrano Sodium [Moles/Vol] 135 mmol/L Critically low 136-145 [facility] Comment on above: Performed By: #### B MP ####[facility] Bohwyxajrb08[address] [place], [place] [address]Dr. Antonella Medrano Urea nitrogen [Mass/Vol] 28.0 mg/dL Critically high 7.0-18.0 [facility] Comment on above: Performed By: #### B MP ####[facility] [address]zrs[address]olwa[address] [place] [id number]. Antonella Medrano Urea nitrogen/Creatinine [Mass ratio] 26.4 mg/mg Normal [facility] Comment on above: Performed By: #### B MP ####[facility] Qxfuibkxyq5[address] [place] [id number]. Antonella Medrano Anion gap [Moles/Vol] 12.0 mmol/L Normal [facility] Comment on above: Performed By: #### C FERNANDEZ, BMP ####[facility] Vkfyduqwuj[address] [place] [address]Dr. Antonella Medrano Calcium [Mass/Vol] 8.8 mg/dL Normal 8.5-10.1 [facility] Comment on above: Performed By: #### C FERNANDEZ, BMP ####[facility] [address]adq[address] [place], [place] [address]Dr. Antonella Medrano Chloride [Moles/Vol] 101 mmol/L Normal 98-107 [facility] Comment on above: Performed By: #### C FERNANDEZ, BMP ####[facility] [address]zdnwkv17[address] [place], [place] [address]Dr. Antonella Medrano CO2 [Moles/Vol] 28.2 mmol/L Normal 21.0-32.0 [facility] Comment on above: Performed By: #### C FERNANDEZ, BMP ####[facility] Nem[address]vtt[address] [place], [place] [id number]. Antonella Medrano Creatinine [Mass/Vol] 1.23 mg/dL Critically high 0.55-1.02 [facility] Comment on above: Performed By: #### C FERNANDEZ, BMP ####[facility] [address]ubhhknd[address] [place], [place] [address]Dr. Antonella Medrano EGFR-AF INDIAN 53 mL/min/1.73m2 Critically low >=60 [facility] Comment on above: Performed By: #### C FERNANDEZ, BMP ####[facility] W[address]ouctux8[address] [place], [place] [id number]. Antonella Medrano EGFR-NON AF INDIAN 44 mL/min/1.73m2 Critically low >=60 [facility] Comment on above: Performed By: #### C FERNANDEZ, BMP ####[facility] [address]fomzl[address] [place] [address]Dr. Mariafilemon Mitchell Glucose [Mass/Vol] 173 mg/dL Critically high 74-106 [facility] Comment on above: Performed By: #### C FERNANDEZ, BMP ####[facility] B[address]porjbyw[address] [place] [address]Dr. Antonella Medrano Potassium [Moles/Vol] 4.2 mmol/L Normal 3.5-5.1 [facility] Comment on above: Performed By: #### C FERNANDEZ, BMP ####[facility] B[address]qoz[address]io[address] [place] [address]Dr. Antonella Medrano Sodium [Moles/Vol] 137 mmol/L Normal 136-145 [facility] Comment on above: Performed By: #### C FENRANDEZ, BMP ####[facility] [address]txbvrtae[address] [place], [place] [address]Dr. Antonella Medrano Urea nitrogen [Mass/Vol] 29.0 mg/dL Critically high 7.0-18.0 [facility] Comment on above: Performed By: #### C FERNANDEZ, BMP ####[facility] [address]prq[address] [place], [place] [address]Dr. Antonella Medrano Urea nitrogen/Creatinine [Mass ratio] 23.6 mg/mg Normal [facility] [facility] Comment on above: Performed By: #### C FERNANDEZ, BMP ####[facility] [address] [place], [place] [address]Dr. Antonella Medrano URINE MICROSCOPIC ONLYon BACTERIA LARGE Abnormal NONE SEEN [facility] Comment on above: Performed By: #### U MICRO, ERUR ####[facility] [address] [place], [place] [address]Dr. Antonella Medrano Bacteria identified Cx Nom (U) INDICATED Normal [facility] Comment on above: Performed By: #### U MICRO, ERUR ####[facility] [address] [place], [place] [address]Dr. Antonella Medrano CAST NONE SEEN Normal NONE SEEN [facility] Comment on above: Performed By: #### U MICRO, ERUR ####[facility] [address] [place] [address]Dr. Antonella Mitchell Crystals LM Nom (Urine sed) NONE SEEN Normal NONE SEEN [facility] Comment on above: Performed By: #### U MICRO, ERUR ####[facility] [address] [place] [address]Dr. Mariafilemon Medrano Epithelial cells LM Ql (Urine sed) RARE Normal NONE SEEN /RARE [facility] Comment on above: Performed By: #### U MICRO, ERUR ####[facility] [address] [place] [address]Dr. Mariafilemon Medrano MUCOUS NONE SEEN Normal NONE SEEN [facility] Comment on above: Performed By: #### U MICRO, ERUR ####[facility] [address] [place] [address]Dr. Antonella Medrano RBC 0-2 Normal 0-2 [facility] Comment on above: Performed By: #### U MICRO, ERUR ####[facility] [address] [place] [address]Dr. Antonella Medrano WBC 10-20 Abnormal NONE SEEN [facility] Comment on above: Performed By: #### U MICRO, ERUR ####[facility] [address] [place] [address]Dr. Antonella Medrano YEAST PRESENT Abnormal NONE SEEN [facility] Comment on above: Performed By: #### U MICRO, ERUR ####[facility] [address] [place] [address]Dr. Mariafilemon Medrano XR CHEST 1 Von 05-13-2022 XR CHEST 1 V Normal [facility] POC GLUCOSE LABon 03-25-2022 Glucose [Mass/Vol] 180 mg/dL High 70-100 [facility] Comment on above: Performed By: #### 1 0070, 36450 #### [facility] [address] [facility] [place] [address], [facility] Glucose [Mass/Vol] 189 mg/dL High 70-100 [facility] Comment on above: Performed By: #### 1 0070, 63298 #### [facility] [address] [place] [address], [place] POC GLUCOSE LABon 03-24-2022 Glucose [Mass/Vol] 198 mg/dL High 70-100 [facility] Comment on above: Performed By: #### 3 5200 #### [facility] [address] [place] [address], [place] Glucose [Mass/Vol] 175 mg/dL High 70-100 [facility] Comment on above: Performed By: #### 8 5499 #### [facility] [address] [place] [address], [place] Glucose [Mass/Vol] 148 mg/dL High 70-100 [facility] Comment on above: Performed By: #### 8 5499 #### [facility] [address] [place] [address], [place] Glucose [Mass/Vol] 85 mg/dL Normal 70-100 [facility] Comment on above: Performed By: #### 3 5200 #### [facility] [address] [place] [address], [place] POC GLUCOSE LABon 03-23-2022 Glucose [Mass/Vol] 173 mg/dL High 70-100 [facility] Comment on above: Performed By: #### 8 5499 #### [facility] [address] [place] [address], [place] Glucose [Mass/Vol] 190 mg/dL High 70-100 [facility] Comment on above: Performed By: #### 8 5499 #### [facility] [address] [place] [address], [place] Glucose [Mass/Vol] 141 mg/dL High 70-100 [facility] Comment on above: Performed By: #### 8 5499 #### [facility] [address] [place] [address], [place] Glucose [Mass/Vol] 188 mg/dL High 70-100 [facility] Comment on above: Performed By: #### 8 5499 #### [facility] [address] [place] [address], [place] POC GLUCOSE LABon 03-22-2022 Glucose [Mass/Vol] 225 mg/dL High 70-100 [facility] Comment on above: Performed By: #### 1 0070, 74121 #### [facility] [address] [place] [address], [place] Glucose [Mass/Vol] 241 mg/dL High 70-100 [facility] Comment on above: Performed By: #### 8 5499 #### [facility] [address] [facility] [place] [address], [place] Glucose [Mass/Vol] 182 mg/dL High 70-100 [facility] Comment on above: Performed By: #### 8 5499 #### [facility] [address] [facility] [place] [address], [place] Glucose [Mass/Vol] 212 mg/dL High 70-100 [facility] Comment on above: Performed By: #### 1 0070, 77518 #### [facility] [address] [facility] [place] [address], [facility] MRI HIP WO CONTRAST RIGHTon 03-21-2022 MRI HIP WO CONTRAST RIGHT [facility] Department of Radiology [address] [place] [id number] Patient Name: KIARA BLANC : 1955 Sex: F Age: Race: White Pt. Location: [id number] Patient Status: I Ordered Date: 2022 2:20:00 [...] fracture. Electronically signed: Kj Pedersen. Transcribed by: [email or web address], User Resident: Electronically Signed by: KJ PEDERSEN @ 03/21/2022 12:05 PM Normal [facility] Comment on above: Order Comment: No: D o not add to previous draw POC GLUCOSE LABon 03-21-2022 Glucose [Mass/Vol] 270 mg/dL High 70-100 [facility] Comment on above: Performed By: #### 1 0070, 79346 #### [facility] [address] [place] [address], [place] Glucose [Mass/Vol] 256 mg/dL High 70-100 [facility] Comment on above: Performed By: #### 8 5499 #### [facility] [address] [place] [address], [place] Glucose [Mass/Vol] 250 mg/dL High 70-100 [facility] Comment on above: Performed By: #### 8 5499 #### [facility] [address] [place] [address], [place] Glucose [Mass/Vol] 223 mg/dL High 70-100 [facility] Comment on above: Performed By: #### 3 5200 #### [facility] [address] [place] [address], [facility] CT LOWER EXTREMITY WO CONTRA ST RIGHTon 2022 CT LOWER EXTREMITY WO CONTRAST RIGHT [facility] Department of Radiology [address] [place] [address] Patient Name: KIARA BLANC : 1955 Sex: F Age: Race: White Pt. Location: [id number] Patient Status: I Ordered Date: 2022 12:00:00 [...] fracture. Electronically signed: Rodo Melissa. Transcribed by: [email or web address], User Resident: Electronically Signed by: RODO MELISSA @ 2022 01:26 PM Normal [facility] Comment on above: Order Comment: No: D o not add to previous draw HIPS BILATERAL 2 VWS WITH PE LVISon 2022 HIPS BILATERAL 2 VWS WITH PELVIS [facility] Department of Radiology [address] [place] [id number] Patient Name: KIARA BLANC : 1955 Sex: F Age: Race: White Pt. Location: [address] [place] [address] Patient Status: I Ordered Date: 2022 9:05:00 AM Completed Date: 2022 09:57 AM Requesting Provider: DUY MGCEE Attending Provider: YRIS QUAN Report Copy To: [...] indicated. Electronically signed: Rodo Melissa. Transcribed by: [email or web address], User Resident: Electronically Signed by: RODO MELISSA @ 2022 02:13 PM Normal [facility] Comment on above: Order Comment: R/O F X, R pelvic crest, greater trochanter LUMBAR SPINE 2 OR 3 VWSon LUMBAR SPINE 2 OR 3 S [facility] Department of Radiology [address] [place] [id number] Patient Name: KIARA BLANC : 1955 Sex: F Age: Race: White Pt. Location: [id number] Patient Status: I Ordered Date: 2022 9:10:00 [...] described. Electronically signed: Rodo Melissa. Transcribed by: [email or web address], User Resident: Electronically Signed by: RODO MELISSA @ 2022 10:11 AM Normal [facility] Comment on above: Order Comment: No: D o not add to previous draw POC GLUCOSE LABon 2022 Glucose [Mass/Vol] 263 mg/dL High 70-100 [facility] Comment on above: Performed By: #### 3 5200 #### [facility] [address] [place] [address], [place] Glucose [Mass/Vol] 245 mg/dL High 70-100 [facility] Comment on above: Performed By: #### 3 5200 #### [facility] [address] [place] [address], [place] Glucose [Mass/Vol] 212 mg/dL High 70-100 [facility] Comment on above: Performed By: #### 3 5200 #### [facility] [address] [place] [address], [place] Glucose [Mass/Vol] 153 mg/dL High 70-100 [facility] Comment on above: Performed By: #### 8 5499 #### [facility] [address] [place] [address], [place] TSH3on 2022 TSH 3RD GENERATION 1.23 uIU/mL Normal 0.34-5.60 [facility] Comment on above: Order Comment: No: D o not add to previous draw Performed By: #### 1 0070, 03111 #### [facility] [address] [place] [address], [place] VITAMIN B12on 2022 Cobalamin (Vitamin B12) [Mass/Vol] 436 pg/mL Normal 180-914 [facility] Comment on above: Order Comment: No: D o not add to previous draw Result Comment: REFE RENCE RANGES: 180-914 pg/mL Normal 145-179 pg/mL Indeterminate <145 pg/mL Deficient Performed By: #### 1 0, 50959 #### [facility] [address] [place] [address], [place] VITAMIN D 25-HYDROXYon 03-20 VITAMIN D 25-OH 20.1 ng/mL Low 30.0-80.0 [facility] Comment on above: Result Comment: >80. 0 Toxicity possible Performed By: #### 1 69, 86420 #### [facility] [address] [place] [address], [place] POC GLUCOSE LABon 03-19-2022 Glucose [Mass/Vol] 140 mg/dL High 70-100 [facility] Comment on above: Performed By: #### 8 5499 #### [facility] [address] [place] [address], [place] Glucose [Mass/Vol] 111 mg/dL High 70-100 [facility] Comment on above: Performed By: #### 1 69, 06493 #### [facility] [address] [place] [address], [place] Glucose [Mass/Vol] 143 mg/dL High 70-100 [facility] Comment on above: Performed By: #### 8 5499 #### [facility] [address] [place] [address], [place] Glucose [Mass/Vol] 232 mg/dL High 70-100 [facility] Comment on above: Performed By: #### 3 5200 #### [facility] [address] [place] [address], [place] *URINE CULTUREon 03-18-2022 *URINE CULTURE Clinical Report: (D) Specimen/Source: URINE/CLEAN VOID URINE Collected: 03/18/2022 12:00 Status: Final Last Updated: 2022 10:33 ISO (Final) >100,000 Cfu/Ml Uro-Genital Lucy ISO (Final) Presumptive Grover glabrata >100,000 Cfu/Ml Normal [facility] Comment on above: Performed By: #### 8 5499 #### [facility] [address] [place] [address], [place] MAGNESIUM BLOODon 03-18-2022 Magnesium [Mass/Vol] 1.9 mg/dL Normal 1.9-2.7 [facility] Comment on above: Order Comment: No: D o not add to previous draw Performed By: #### 1 0070, 29072 #### [facility] [address] [place] [address], [place] POC GLUCOSE LABon 03-18-2022 Glucose [Mass/Vol] 256 mg/dL High 70-100 [facility] Comment on above: Performed By: #### 8 5499 #### [facility] [address] [place] [address], [place] Glucose [Mass/Vol] 262 mg/dL High 70-100 [facility] Comment on above: Performed By: #### 3 5200 #### [facility] [address] [place] [address], [place] Glucose [Mass/Vol] 215 mg/dL High 70-100 [facility] Comment on above: Performed By: #### 3 5200 #### [facility] [address] [place] [address], [place] Glucose [Mass/Vol] 361 mg/dL High 70-100 [facility] Comment on above: Performed By: #### 8 5499 #### [facility] [address] [place] [address], [place] URINALYSIS REFLEXon 03-18-20 22 Appearance (U) TURBID Abnormal CLEAR [facility] Comment on above: Order Comment: Yes: Add to Previous draw if able Criteria for reflexing a culture was not met. Please call the lab at 7668 within 24 hours of collection time if culture is needed Performed By: #### 3 0965 #### [facility] [address] [facility] [place] [address], [facility] Bilirubin Ql (U) Negative Normal NEGATIVE [facility] Comment on above: Order Comment: Yes: Add to Previous draw if able Criteria for reflexing a culture was not met. Please call the lab at 7668 within 24 hours of collection time if culture is needed Performed By: #### 3 0965 #### [facility] [address] BUDDING YEAST MANY Abnormal NONE SEEN [facility] Comment on above: Order Comment: Yes: Add to Previous draw if able Criteria for reflexing a culture was not met. Please call the lab at 7668 within 24 hours of collection time if culture is needed Performed By: #### 3 0965 #### [facility] [address] [facility]. [address] Color (U) YELLOW Normal YELLOW [facility] Comment on above: Order Comment: Yes: Add to Previous draw if able Criteria for reflexing a culture was not met. Please call the lab at 7668 within 24 hours of collection time if culture is needed Performed By: #### 3 0965 #### [facility] [address] [facility] [place] [address], [facility] EPIS MANY Abnormal FEW,OCC,NON E SEEN [facility] Comment on above: Order Comment: Yes: Add to Previous draw if able Criteria for reflexing a culture was not met. Please call the lab at 7668 within 24 hours of collection time if culture is needed Performed By: #### 3 0965 #### [facility] [address] [facility] [place] [address], [facility] Glucose Ql (U) >=500 Abnormal NEGATIVE [facility] Comment on above: Order Comment: Yes: Add to Previous draw if able Criteria for reflexing a culture was not met. Please call the lab at 7668 within 24 hours of collection time if culture is needed Performed By: #### 3 0965 #### [facility] [address] [place] [address], [facility] Hemoglobin Ql (U) SMALL Abnormal NEGATIVE [facility] Comment on above: Order Comment: Yes: Add to Previous draw if able Criteria for reflexing a culture was not met. Please call the lab at 7668 within 24 hours of collection time if culture is needed Performed By: #### 3 0965 #### [facility] [address] [place] [address], [facility] KETONE Negative Normal NEGATIVE [facility] Comment on above: Order Comment: Yes: Add to Previous draw if able Criteria for reflexing a culture was not met. Please call the lab at 7668 within 24 hours of collection time if culture is needed Performed By: #### 3 0965 #### [facility] [address] [facility] [place] [address], [facility] LEUK TESHA LARGE Abnormal NEGATIVE [facility] Comment on above: Order Comment: Yes: Add to Previous draw if able Criteria for reflexing a culture was not met. Please call the lab at 7668 within 24 hours of collection time if culture is needed Performed By: #### 3 0965 #### [facility] [address] [facility] [place] [address], [facility] Nitrite Ql (U) Negative Normal NEGATIVE [facility] Comment on above: Order Comment: Yes: Add to Previous draw if able Criteria for reflexing a culture was not met. Please call the lab at 7668 within 24 hours of collection time if culture is needed Performed By: #### 3 0965 #### [facility] [address] [facility] [place] [address], [facility] pH (U) 6.0 [pH] Normal 5.0-8.0 [facility] Comment on above: Order Comment: Yes: Add to Previous draw if able Criteria for reflexing a culture was not met. Please call the lab at 7668 within 24 hours of collection time if culture is needed Performed By: #### 3 0965 #### [facility] [address] [facility]. [address] Protein Ql (U) 30 mg/dL Abnormal NEGATIVE [facility] Comment on above: Order Comment: Yes: Add to Previous draw if able Criteria for reflexing a culture was not met. Please call the lab at 7668 within 24 hours of collection time if culture is needed Performed By: #### 3 0965 #### [facility] [address] [facility] [place] [address], [facility] RBC 6-10 Abnormal NONE SEEN [facility] Comment on above: Order Comment: Yes: Add to Previous draw if able Criteria for reflexing a culture was not met. Please call the lab at 7668 within 24 hours of collection time if culture is needed Performed By: #### 3 0965 #### [facility] [address] [facility]. [address] SPEC GRAV 1.009 Low 1.015-1.020 [facility] Comment on above: Order Comment: Yes: Add to Previous draw if able Criteria for reflexing a culture was not met. Please call the lab at 7668 within 24 hours of collection time if culture is needed Performed By: #### 3 0965 #### [facility] [address] [facility]. [address] WBC UA >100 Abnormal NONE SEEN [facility] Comment on above: Order Comment: Yes: Add to Previous draw if able Criteria for reflexing a culture was not met. Please call the lab at 7668 within 24 hours of collection time if culture is needed Performed By: #### 3 0965 #### [facility] [address] [facility]. [address] BASIC METABOLIC PANELon 06-2 Calcium [Mass/Vol] 8.3 mg/dL Low 8.6-10.3 [facility] Comment on above: Order Comment: No: D o not add to previous draw Performed By: #### 1 0070, 01355 #### [facility] [address] [facility] [place] [address], [place] Chloride [Moles/Vol] 106 mmol/L Normal 98-107 [facility] Comment on above: Order Comment: No: D o not add to previous draw Performed By: #### 1 69, 57659 #### [facility] [address] [place] [address], [place] CO2 [Moles/Vol] 24 mmol/L Normal 21-31 [facility] Comment on above: Order Comment: No: D o not add to previous draw Performed By: #### 1 69, 75106 #### [facility] [address] [place] [address], [place] Creatinine [Mass/Vol] 0.73 mg/dL Normal 0.60-1.20 [facility] Comment on above: Order Comment: No: D o not add to previous draw Performed By: #### 1 69, 33083 #### [facility] [address] [place] [address], [place] GFR/1.73 sq M.predicted among blacks MDRD (S/P/Bld) [Vol rate/Area] mL/min/{1.73_m2} Normal >60 [facility] Comment on above: Order Comment: No: D o not add to previous draw Performed By: #### 1 69, 86234 #### [facility] [address] [place] [address], [place] GFR/1.73 sq M.predicted among non-blacks MDRD (S/P/Bld) [Vol rate/Area] mL/min/{1.73_m2} Normal >60 [facility] Comment on above: Order Comment: No: D o not add to previous draw Performed By: #### 1 69, 50826 #### [facility] [address] [place] [address], [place] Glucose [Mass/Vol] 218 mg/dL High 70-100 [facility] Comment on above: Order Comment: No: D o not add to previous draw Performed By: #### 1 69, 91831 #### [facility] [address] [place] [address], [facility] Potassium [Moles/Vol] 4.2 mmol/L Normal 3.5-5.1 [facility] Comment on above: Order Comment: No: D o not add to previous draw Performed By: #### 1 69, 82109 #### [facility] [address] [place] [address], [facility] Sodium [Moles/Vol] 136 mmol/L Normal 136-145 [facility] Comment on above: Order Comment: No: D o not add to previous draw Performed By: #### 1 69, 84925 #### [facility] [address] [place] [address], [facility] Urea nitrogen [Mass/Vol] 18 mg/dL Normal 7-25 [facility] Comment on above: Order Comment: No: D o not add to previous draw Performed By: #### 1 69, 42151 #### [facility] [address] [facility] [place] [address], [facility] CBC W/DIFFon 03-17-2022 ABS IMM GRANS 0.1 10*3/uL Normal 0.0-0.2 [facility] Comment on above: Order Comment: No: D o not add to previous draw Performed By: #### 8 5499 #### [facility] [address] [facility] [place] [address], [facility] ABS NEUTROPHILS 4.2 10*3/uL Normal 1.6-7.6 [facility] Comment on above: Order Comment: No: D o not add to previous draw Performed By: #### 8 5499 #### [facility] [address] [place] [address], [facility] Basophils (Bld) [#/Vol] 0.0 10*3/uL Normal 0.0-0.2 [facility] Comment on above: Order Comment: No: D o not add to previous draw Performed By: #### 8 5499 #### [facility] [address] [place] [address], [facility] Basophils/100 WBC (Bld) 0.4 % Normal 0.0-1.0 [facility] Comment on above: Order Comment: No: D o not add to previous draw Performed By: #### 8 5499 #### [facility] [address] [place] [address], [place] Eosinophils (Bld) [#/Vol] 0.2 10*3/uL Normal 0.0-0.5 [facility] Comment on above: Order Comment: No: D o not add to previous draw Performed By: #### 8 5499 #### [facility] [address] [place] [address], [facility] Eosinophils/100 WBC (Bld) 3.4 % Normal 0.0-6.0 [facility] Comment on above: Order Comment: No: D o not add to previous draw Performed By: #### 8 5499 #### [facility] [address] [place] [id number], [facility] Erythrocyte distribution width (RBC) [Ratio] 13.4 % Normal 11.5-15.0 [facility] Comment on above: Order Comment: No: D o not add to previous draw Performed By: #### 8 5499 #### [facility] [address] [place] [id number], [facility] Hematocrit (Bld) [Volume fraction] 42.7 % Normal 36.0-45.0 [facility] Comment on above: Order Comment: No: D o not add to previous draw Performed By: #### 8 5499 #### [facility] [address] [place] [address], [facility] Hemoglobin (Bld) [Mass/Vol] 13.8 g/dL Normal 12.0-15.0 [facility] Comment on above: Order Comment: No: D o not add to previous draw Performed By: #### 8 5499 #### [facility] [address] [place] [address], [facility] IMMATURE GRANS 0.8 % Normal 0.0-1.0 [facility] Comment on above: Order Comment: No: D o not add to previous draw Performed By: #### 8 5499 #### [facility] [address] [place] [id number], [facility] Lymphocytes (Bld) [#/Vol] 1.8 10*3/uL Normal 1.2-4.0 [facility] Comment on above: Order Comment: No: D o not add to previous draw Performed By: #### 8 [id number] #### [facility] [address] [place] [id number], [facility] Lymphocytes/100 WBC (Bld) 25.8 % Normal 20.0-45.0 [facility] Comment on above: Order Comment: No: D o not add to previous draw Performed By: #### 8 5499 #### [facility] [address] [facility] [place] [address], [facility] MCH (RBC) [Entitic mass] 28.3 pg Normal 27.0-33.0 [facility] Comment on above: Order Comment: No: D o not add to previous draw Performed By: #### 8 5499 #### [facility] [address] [place] [id number], [facility] MCHC (RBC) [Mass/Vol] 32.3 g/dL Normal 32.0-35.0 [facility] Comment on above: Order Comment: No: D o not add to previous draw Performed By: #### 8 5499 #### [facility] [address] [place] [id number], [facility] MCV (RBC) [Entitic vol] 87.7 fL Normal 82.0-98.0 [facility] Comment on above: Order Comment: No: D o not add to previous draw Performed By: #### 8 5499 #### [facility] [address] [place] [address], [facility] Monocytes (Bld) [#/Vol] 0.7 10*3/uL Normal 0.1-1.0 [facility] Comment on above: Order Comment: No: D o not add to previous draw Performed By: #### 8 5499 #### [facility] [address] [place] [id number], [facility] MONOS 9.9 % Normal 5.0-12.0 [facility] Comment on above: Order Comment: No: D o not add to previous draw Performed By: #### 8 5499 #### [facility] [address] [place] [address], [facility] Neutrophils/100 WBC (Bld) 59.7 % Normal 40.0-72.0 [facility] Comment on above: Order Comment: No: D o not add to previous draw Performed By: #### 8 5499 #### [facility] [address] [place] [address], [facility] Nucleated RBC/100 WBC (Bld) [Ratio] 0 % Normal 0-0 [facility] Comment on above: Order Comment: No: D o not add to previous draw Performed By: #### 8 5499 #### [facility] [address] [facility] [place] [address], [facility] PLAT CNT 248 10*3/uL Normal 150-400 [facility] Comment on above: Order Comment: No: D o not add to previous draw Performed By: #### 8 5499 #### [facility] [address] [place] [id number], [facility] RBC (Bld) [#/Vol] 4.87 10*6/uL Normal 3.80-5.00 [facility] Comment on above: Order Comment: No: D o not add to previous draw Performed By: #### 8 5499 #### [facility] [address] [place] [address], [facility] WBC (Bld) [#/Vol] 7.08 10*3/uL Normal 4.00-10.60 [facility] Comment on above: Order Comment: No: D o not add to previous draw Performed By: #### 8 5499 #### [facility] [address] [place] [address], [place] MAGNESIUM BLOODon 03-17-2022 Magnesium [Mass/Vol] 1.5 mg/dL Low 1.9-2.7 [facility] Comment on above: Order Comment: No: D o not add to previous draw Performed By: #### 1 0070, 16738 #### [facility] [address] [place] [address], [place] POC GLUCOSE LABon 03-17-2022 Glucose [Mass/Vol] 406 mg/dL High 70-100 [facility] Comment on above: Performed By: #### 1 0070, 76222 #### [facility] [address] [place] [address], [place] Glucose [Mass/Vol] 282 mg/dL High 70-100 [facility] Comment on above: Performed By: #### 8 5499 #### [facility] [address] [place] [address], [place] Glucose [Mass/Vol] 152 mg/dL High 70-100 [facility] Comment on above: Performed By: #### 8 5499 #### [facility] [address] [place] [address], [place] Glucose [Mass/Vol] 199 mg/dL High 70-100 [facility] Comment on above: Performed By: #### 3 5200 #### [facility] [address] [place] [address], [place] TROPONIN-Ion 03-17-2022 Troponin I.cardiac [Mass/Vol] 0.05 ng/mL High 0.00-0.04 [facility] Comment on above: Order Comment: No: D o not add to previous draw Result Comment: REFE RENCE RANGES: 0.00 - 0.04 ng/ml NORMAL 0.05 - 0.50 ng/ml INDETERMINATE > 0.50 ng/ml CONSISTENT WITH AN M.I. Performed By: #### 1 0070, 40329 #### [facility] [address] [place] [address], [facility] Troponin I.cardiac [Mass/Vol] 0.06 ng/mL High 0.00-0.04 [facility] Comment on above: Order Comment: No: D o not add to previous draw Result Comment: REFE RENCE RANGES: 0.00 - 0.04 ng/ml NORMAL 0.05 - 0.50 ng/ml INDETERMINATE > 0.50 ng/ml CONSISTENT WITH AN M.I. Performed By: #### 3 5200 #### [facility] [address] [place] [address], [facility] Troponin I.cardiac [Mass/Vol] 0.06 ng/mL High 0.00-0.04 [facility] Comment on above: Order Comment: No: D o not add to previous draw Result Comment: REFE RENCE RANGES: 0.00 - 0.04 ng/ml NORMAL 0.05 - 0.50 ng/ml INDETERMINATE > 0.50 ng/ml CONSISTENT WITH AN M.I. Performed By: #### 1 0, 76611 #### [facility] [address] BASIC METABOLIC PANELon 06-2 Calcium [Mass/Vol] 9.1 mg/dL Normal 8.6-10.3 [facility] Comment on above: Order Comment: No: D o not add to previous draw Performed By: #### 8 3499 #### [facility] [address] [place] [address], [facility] Chloride [Moles/Vol] 103 mmol/L Normal 98-107 [facility] Comment on above: Order Comment: No: D o not add to previous draw Performed By: #### 8 7839 #### [facility] [address] [place] [address], [place] CO2 [Moles/Vol] 24 mmol/L Normal 21-31 [facility] Comment on above: Order Comment: No: D o not add to previous draw Performed By: #### 8 5499 #### [facility] [address] [place] [address], [place] Creatinine [Mass/Vol] 0.68 mg/dL Normal 0.60-1.20 [facility] Comment on above: Order Comment: No: D o not add to previous draw Performed By: #### 8 5499 #### [facility] [address] [place] [address], [place] GFR/1.73 sq M.predicted among blacks MDRD (S/P/Bld) [Vol rate/Area] mL/min/{1.73_m2} Normal >60 [facility] Comment on above: Order Comment: No: D o not add to previous draw Performed By: #### 8 5499 #### [facility] [address] [place] [address], [place] GFR/1.73 sq M.predicted among non-blacks MDRD (S/P/Bld) [Vol rate/Area] mL/min/{1.73_m2} Normal >60 [facility] Comment on above: Order Comment: No: D o not add to previous draw Performed By: #### 8 5499 #### [facility] [address] [place] [address], [place] Glucose [Mass/Vol] 196 mg/dL High 70-100 [facility] Comment on above: Order Comment: No: D o not add to previous draw Performed By: #### 8 5499 #### [facility] [address] [place] [address], [place] Potassium [Moles/Vol] 4.1 mmol/L Normal 3.5-5.1 [facility] Comment on above: Order Comment: No: D o not add to previous draw Performed By: #### 8 5499 #### [facility] [address] [place] [address], [facility] Sodium [Moles/Vol] 137 mmol/L Normal 136-145 [facility] Comment on above: Order Comment: No: D o not add to previous draw Performed By: #### 8 5499 #### [facility] [address] [place] [address], [facility] Urea nitrogen [Mass/Vol] 12 mg/dL Normal 7-25 [facility] Comment on above: Order Comment: No: D o not add to previous draw Performed By: #### 8 5499 #### [facility] [address] BNP (B-TYPE NATRIURETIC PEPT RAMAN)on 03-16-2022 Natriuretic peptide B (Bld) [Mass/Vol] 208 pg/mL High 0-100 [facility] Comment on above: Order Comment: No: D o not add to previous draw Result Comment: Give n the appropriate clinical setting a BNP result of >100 pg/mL indicates congestive heart failure. Performed By: #### 1 0070, 96561 #### [facility] [address] [facility] [address] CARDIAC VICK 3-6on 2 CK [Catalytic activity/Vol] 43 U/L Normal 26-192 [facility] Comment on above: Performed By: #### C MREP ####[facility] [address] [place], [place] [address]Us. Antonella Medrano CK.MB [Mass/Vol] 1.84 ng/mL Normal <=3.60 [facility] Comment on above: Performed By: #### C MREP ####[facility] [address] [place], [place] [address]Pa. Antonella Medrano HSTROP 111.7 pg/mL Critically high 4.0-51.3 [facility] Comment on above: Result Comment: CUT- OFF POINTS HAVE BEEN ESTABLISHED BASED ON THE FOURTH UNIVERSAL DEFINITIONS OF MYOCARDIALINFARCTION. THE UPPER REFERENCE LIMIT (URL) OF TROPONIN, DEFINED THE 99TH PERCENTILE OFcTnI DISTRIBUTION IN A REFERENCE POPULATION, HAS BEEN CONFIRMED THE DECISION THRESHOLDFOR OK DIAGNOSIS.repeated Performed By: #### C MREP ####[facility] [address] [place] [id number]. Antonella Medrano CK [Catalytic activity/Vol] 45 U/L Normal 26-192 [facility] Comment on above: Performed By: #### C MREP ####[facility] [address] [place] [phone]. Antonella Medrano CK.MB [Mass/Vol] 1.64 ng/mL Normal <=3.60 [facility] Comment on above: Performed By: #### C MREP ####[facility] [address] [place] [address]Dr. Antonella Medrano HSTROP 88.9 pg/mL Critically high 4.0-51.3 [facility] Comment on above: Result Comment: CUT- OFF POINTS HAVE BEEN ESTABLISHED BASED ON THE FOURTH UNIVERSAL DEFINITIONS OF MYOCARDIALINFARCTION. THE UPPER REFERENCE LIMIT (URL) OF TROPONIN, DEFINED THE 99TH PERCENTILE OFcTnI DISTRIBUTION IN A REFERENCE POPULATION, HAS BEEN CONFIRMED THE DECISION THRESHOLDFOR OK DIAGNOSIS. Performed By: #### C MREP ####[facility] [address] [place] [id number]. Antonella Medrano CARDIAC VICK ADMITon 022 CK [Catalytic activity/Vol] 45 U/L Normal 26-192 [facility] Comment on above: Performed By: #### EMMANUEL Castillo MP ####[facility] [address] [place] [id number]. Antonella Medrano CK.MB [Mass/Vol] 1.93 ng/mL Normal <=3.60 [facility] Comment on above: Performed By: #### EMMANUEL Castillo MP ####[facility] [address] [place] [phone]. Antonella Medrano HSTROP 84.6 pg/mL Critically high 4.0-51.3 [facility] Comment on above: Result Comment: CUT- OFF POINTS HAVE BEEN ESTABLISHED BASED ON THE FOURTH UNIVERSAL DEFINITIONS OF MYOCARDIALINFARCTION. THE UPPER REFERENCE LIMIT (URL) OF TROPONIN, DEFINED THE 99TH PERCENTILE OFcTnI DISTRIBUTION IN A REFERENCE POPULATION, HAS BEEN CONFIRMED THE DECISION THRESHOLDFOR OK DIAGNOSIS. Performed By: #### B EMMANUEL ROACH ####[facility] [address] [place], [place] [address]Dr. Antonella Medrano CHRISTOPHER 79 ng/mL Normal 9-82 [facility] Comment on above: Performed By: #### B EMMANUEL ROACH ####[facility] [address] [place], [place] [address]Dr. Antonella Medrano CBC AUTO DIFFon 03-16-2022 BASO # 0.0 103/ul Normal 0.0-0.1 [facility] Comment on above: Performed By: #### C BC ####[facility] [address] [place], [place] [address]Dr. Antonella Medrano Basophils/100 WBC (Bld) 0.5 % Normal 0.2-2.0 [facility] Comment on above: Performed By: #### C BC ####[facility] [address] [place], [place] [address]Dr. Antonella Medrano EO # 0.2 103/ul Normal 0.0-0.7 [facility] Comment on above: Performed By: #### C BC ####[facility] [address] [place], [place] [address]Dr. Antonella Medrano Eosinophils/100 WBC (Bld) 2.9 % Normal 0.9-7.0 [facility] Comment on above: Performed By: #### C BC ####[facility] [address] [place], [place] [address]Dr. Antonella Medrano Erythrocyte distribution width (RBC) [Ratio] 13.2 % Normal 11.0-15.0 [facility] Comment on above: Performed By: #### C BC ####[facility] [address] [place], [place] [address]Dr. Antonella Medrano Hematocrit (Bld) [Volume fraction] 44.5 % Normal 36.0-48.0 [facility] Comment on above: Performed By: #### C BC ####[facility] [address] [place] [phone]. Antonella Medrano Hemoglobin (Bld) [Mass/Vol] 14.7 g/dL Normal 12.0-16.0 [facility] Comment on above: Performed By: #### C BC ####[facility] [address] [place] [phone]. Antonella Medrano IG # 0.10 10e3/ul Critically high 0.00-0.03 [facility] Comment on above: Performed By: #### C BC ####[facility] [address] [place] [address]Dr. Antonella Mitchell IG % 1.3 % Critically high 0.0-0.5 [facility] Comment on above: Performed By: #### C BC ####[facility] [address] [place], [place] [address]Dr. Antonella Mitchell LYMPH # 1.7 103/ul Normal 1.2-3.8 [facility] Comment on above: Performed By: #### C BC ####[facility] [address] [place] [address]Dr. Antonella Mitchell Lymphocytes/100 WBC (Bld) 22.0 % Normal 20.5-60.0 [facility] Comment on above: Performed By: #### C BC ####[facility] [address] [place] [address]Dr. Mariafilemon Medrano MANUAL DIFF REQ NO Normal [facility] Comment on above: Performed By: #### C BC ####[facility] [address] [place] [phone]. Antonella Medrano MCH (RBC) [Entitic mass] 28.7 pg Normal 26.7-34.0 [facility] Comment on above: Performed By: #### C BC ####[facility] [address] [place] [phone]. Antonella Mitchell MCHC (RBC) [Mass/Vol] 33.0 g/dL Normal 29.9-35.2 [facility] Comment on above: Performed By: #### C BC ####[facility] [address] [place] [phone]. Antonella Medrano MCV (RBC) [Entitic vol] 86.7 fL Normal 81.0-99.0 [facility] Comment on above: Performed By: #### C BC ####[facility] [address]xy[address] [place] [phone]. Antonella Medrano MONO # 0.7 103/ul Normal 0.3-0.8 [facility] Comment on above: Performed By: #### C BC ####[facility] [address] [place] [phone]. Mariafilemon Medrano Monocytes/100 WBC (Bld) 9.8 % Normal 1.7-12.0 [facility] Comment on above: Performed By: #### C BC ####[facility] [address] [place], [place] [address]Dr. Antonella Medrano NEUT # 4.8 103/ul Normal 1.4-6.5 [facility] Comment on above: Performed By: #### C BC ####[facility] [address] [place], [place] [id number]. Antonella Mitchell Neutrophils/100 WBC (Bld) 63.5 % Normal 43.0-75.0 [facility] Comment on above: Performed By: #### C BC ####[facility] [address] [place], [place] [address]Dr. Antonella Mitchell Platelet mean volume (Bld) [Entitic vol] 10.5 fL Normal 9.5-13.5 [facility] Comment on above: Performed By: #### C BC ####[facility] [address] [place] [phone]. Antonella Mitchell PLT 262 103/ul Normal 150-450 [facility] Comment on above: Performed By: #### C BC ####[facility] [address]40[address] [place] [phone]. Antonella Medrano RBC 5.13 106/ul Normal 4.20-5.40 [facility] Comment on above: Performed By: #### C BC ####[facility] [address] [place], [place] [address]Rz. Antonella Medrano WBC 7.5 103/ul Normal 4.0-11.0 [facility] Comment on above: Performed By: #### C BC ####[facility] [address] [place], [place] [address]Dg. Antonella Medrano CBC W/DIFFon 03-16-2022 ABS IMM GRANS 0.1 10*3/uL Normal 0.0-0.2 [facility] Comment on above: Performed By: #### 1 69, 74850 #### [facility] [address] [place] [address], [facility] ABS NEUTROPHILS 4.3 10*3/uL Normal 1.6-7.6 [facility] Comment on above: Performed By: #### 1 69, 08524 #### [facility] [address] [facility] [place] [address], [facility] Basophils (Bld) [#/Vol] 0.0 10*3/uL Normal 0.0-0.2 [facility] Comment on above: Performed By: #### 1 69, 17871 #### [facility] [address] [facility] [place] [address], [facility] Basophils/100 WBC (Bld) 0.3 % Normal 0.0-1.0 [facility] Comment on above: Performed By: #### 1 69, 04687 #### [facility] [address] [facility] [place] [address], [facility] Eosinophils (Bld) [#/Vol] 0.3 10*3/uL Normal 0.0-0.5 [facility] Comment on above: Performed By: #### 1 69, 88759 #### [facility] [address] [facility] [place] [address], [facility] Eosinophils/100 WBC (Bld) 3.4 % Normal 0.0-6.0 [facility] Comment on above: Performed By: #### 1 69, 26388 #### [facility] [address] [place] [address], [facility] Erythrocyte distribution width (RBC) [Ratio] 13.5 % Normal 11.5-15.0 [facility] Comment on above: Performed By: #### 1 69, 77922 #### [facility] [address] [place] [address], [facility] Hematocrit (Bld) [Volume fraction] 46.2 % High 36.0-45.0 [facility] Comment on above: Performed By: #### 1 69, 14362 #### [facility] [address] [facility] [place] [address], [facility] Hemoglobin (Bld) [Mass/Vol] 15.3 g/dL High 12.0-15.0 [facility] Comment on above: Performed By: #### 1 69, #### [facility] [address] [facility] [place] [address], [facility] IMMATURE GRANS 0.9 % Normal 0.0-1.0 [facility] Comment on above: Performed By: #### 1 69, 01934 #### [facility] [address] [facility] [place] [address], [facility] Lymphocytes (Bld) [#/Vol] 2.2 10*3/uL Normal 1.2-4.0 [facility] Comment on above: Performed By: #### 1 69, 32196 #### [facility] [address] [facility] [place] [address], [facility] Lymphocytes/100 WBC (Bld) 29.1 % Normal 20.0-45.0 [facility] Comment on above: Performed By: #### 1 69, 58792 #### [facility] [address] [place] [id number], [facility] MCH (RBC) [Entitic mass] 28.4 pg Normal 27.0-33.0 [facility] Comment on above: Performed By: #### 1 69, 97024 #### [facility] [address] [facility] [place] [address], [facility] MCHC (RBC) [Mass/Vol] 33.1 g/dL Normal 32.0-35.0 [facility] Comment on above: Performed By: #### 1 69, 27378 #### [facility] [address] [facility] [place] [address], [facility] MCV (RBC) [Entitic vol] 85.9 fL Normal 82.0-98.0 [facility] Comment on above: Performed By: #### 1 69, 68591 #### [facility] [address] [facility] [place] [address], [facility] Monocytes (Bld) [#/Vol] 0.7 10*3/uL Normal 0.1-1.0 [facility] Comment on above: Performed By: #### 1 69, 52779 #### [facility] [address] [place] [address], [facility] MONOS 9.8 % Normal 5.0-12.0 [facility] Comment on above: Performed By: #### 1 69, 35361 #### [facility] [address] [facility] [place] [address], [facility] Neutrophils/100 WBC (Bld) 56.5 % Normal 40.0-72.0 [facility] Comment on above: Performed By: #### 1 69, 73491 #### [facility] [address] [place] [address], [facility] Nucleated RBC/100 WBC (Bld) [Ratio] 0 % Normal 0-0 [facility] Comment on above: Performed By: #### 1 69, 08882 #### [facility] [address] [place] [address], [facility] PLAT CNT 245 10*3/uL Normal 150-400 [facility] Comment on above: Performed By: #### 1 0070, 20356 #### [facility] [address] [place] [address], [facility] RBC (Bld) [#/Vol] 5.38 10*6/uL High 3.80-5.00 [facility] Comment on above: Performed By: #### 1 0070, 10899 #### [facility] [address] [facility] [place] [address], [facility] WBC (Bld) [#/Vol] 7.56 10*3/uL Normal 4.00-10.60 [facility] Comment on above: Performed By: #### 1 0070, 30041 #### [facility] [address] [facility] CULTURE URINEon 03-16-2022 CULTURE URINE Culture Observations : MODERATE GROWTH OF MIXED GENITAL LUCY. NO POTENTIAL PATHOGENS SEEN. Normal [facility] Comment on above: Performed By: #### U RCX ####[facility] [address] [place], [place] [address]Ub. Antonella Mitchell Covid-19 PCR (CVDTB)on 02-22 SARS-CoV-2 (COVID-19) RNA TAISHA+probe Ql (Unsp spec) Not detected Normal NOT DETECTED [facility] Comment on above: Result Comment: When [...] for this test is supported by the [place] of Health and Human Service's declaration that [...] be used). Performed By: #### C VDTB ####[facility] [address] [place], [place] [address]Dr. Antonella Medrano ER URINE PROFILEon 2 Bilirubin Ql (U) Negative Normal NEGATIVE [facility] Comment on above: Performed By: #### LATA CLARKRO ####[facility] [address] [place], [place] [address]Dr. Antonella Medrano Clarity (U) CLEAR Normal CLEAR [facility] Comment on above: Performed By: #### LATA CLARKRO ####[facility] [address] [place], [place] [address]Dr. Antonella Medrano Color (U) LT. YELLOW Normal YELLOW [facility] Comment on above: Performed By: #### LATA CLARKRO ####[facility] [facility] [address] [place], [place] [address]Dr. Antonella Medrano ERUAHD A micrscopic examina tion will be performed if indicated. Normal [facility] Comment on above: Performed By: #### LATA CLARKRO ####[facility] W[address]uhj[address] [place], [place] [address]Dr. Antonella Medrano Glucose Ql (U) >1000 Abnormal NEGATIVE [facility] Comment on above: Performed By: #### LATA CLARKRO ####[facility] [address]ouw[address]as[address] [place], [place] [address]Dr. Antonella Medrano Hemoglobin Ql (U) TRACE-INTACT Abnormal NEGATIVE [facility] Comment on above: Performed By: #### LATA CLARKRO ####[facility] Pfaatotkfa[address] [place], [place] [address]Dr. Antonella Medrano Ketones Ql (U) Negative Normal NEGATIVE [facility] Comment on above: Performed By: #### LATA CLARKRO ####[facility] Lr[address]amtbdm[address] [place], [place] [address]Dr. Antonella Medrano LEUKOCYTES Negative Normal NEGATIVE [facility] Comment on above: Performed By: #### LATA CLARKRO ####[facility] [address]ox[address] [place] [address]Dr. Antonella Medrano Nitrite Ql (U) Negative Normal NEGATIVE [facility] Comment on above: Performed By: #### LATA CLARKRO ####[facility] Fwpdawpuou[address] [place] [address]Dr. Antonella Medrano pH (U) 6.0 [pH] Normal 5-9 [facility] Comment on above: Performed By: #### LATA CLARKRO ####[facility] Owneedwsuo[address] [place] [address]Dr. Antonella Medrano SPEC GRAVITY 1.010 Normal 1.005-<=1.0 25 [facility] Comment on above: Performed By: #### LATA CLARKRO ####[facility] Wuwnxynnuf[address] [place] [address]Dr. Antonella Medrano UA PROTEIN TRACE Normal NEGATIVE/ TRACE [facility] Comment on above: Performed By: #### LATA CLARKRO ####[facility] Rlwzglnenm[address] [place] [address]Dr. Antonella Medrano UR MICRO IND INDICATED Normal [facility] Comment on above: Performed By: #### LATA CLARKRO ####[facility] Mzwrfnding[address] [place] [address]Dr. Antonella Medrano Urobilinogen Qn (U) 0.2 {Oleg'U}/dL Normal 0.2 - 1. 0 [facility] Comment on above: Performed By: #### LATA CLARKRO ####[facility] Itpobxzpbi[address] [place] [address]Dr. Antonlela Medrano POC GLUCOSE LABon 03-16-2022 Glucose [Mass/Vol] 337 mg/dL High 70-100 [facility] Comment on above: Performed By: #### 8 [id number] #### [facility] [address] [facility] [place] [address], [facility] Glucose [Mass/Vol] 288 mg/dL High 70-100 [facility] Comment on above: Performed By: #### 1 0070, [id number] #### [facility] [address] [place] [address], [facility] Glucose [Mass/Vol] 197 mg/dL High 70-100 [facility] Comment on above: Performed By: #### 1 0070, [id number] #### [facility] [address] [place], [place] [address] [place] [address] POC SARS COV2 ANTIGEN NEGATI VEon 03-16-2022 POC SARS COV2 ANTIGEN NEG Negative Normal NEGATIVE [facility] Comment on above: Result Comment: Nega [...] antigen from SARS-CoV-2 in direct nasopharyngeal swab (DRUM SAW OPERATOR) specimens from individuals who are suspected of [...] Accreditation. Performed By: #### 8 [id number] #### [facility] [address] [place] [address], [facility] POINT OF CARE GLUCOSEon 02-22 Glucose [Mass/Vol] 343 mg/dL Critically high 74-106 [facility] Comment on above: Performed By: #### P OCGLUC ####[facility] Twixlwlmkt[address] [place] [address]Dr. Antonella Medrano Glucose [Mass/Vol] 516 mg/dL Critically high 74-106 [facility] Comment on above: Result Comment: Resu lt Not Confirmed Performed By: #### P OCGLUC ####[facility] Gduymbbuur[address] [place] [address]Dr. Antonella Medrano PROF CHEM 8 (BAS METB)on Anion gap [Moles/Vol] 10.9 mmol/L Normal [facility] Comment on above: Performed By: #### B MARLEY, CMADM ####[facility] Lmzcgbgcpl4983 [place] [address]Dr. Antonella Medrano Calcium [Mass/Vol] 8.9 mg/dL Normal 8.5-10.1 [facility] Comment on above: Performed By: #### B MARLEY, CMADM ####[facility] Rgjjwcngks[address] [place], [place] [address]Dr. Antonella Medrano Chloride [Moles/Vol] 99 mmol/L Normal 98-107 [facility] Comment on above: Performed By: #### B MARLEY, CMADM ####[facility] [address]qtfskvax[address] [place], [place] [address]Dr. Antonella Medrano CO2 [Moles/Vol] 29.1 mmol/L Normal 21.0-32.0 [facility] Comment on above: Performed By: #### B MARLEY, CMADM ####[facility] X[address]ysxmvjn[address] [place], [place] [address]Dr. Antonella Medrano Creatinine [Mass/Vol] 1.05 mg/dL Critically high 0.55-1.02 [facility] Comment on above: Performed By: #### B MARLEY, CMADM ####[facility] Cupooxpreu[address] [place], [place] [address]Dr. Antonella Medrano EGFR-AF INDIAN >60 Normal >=60 [facility] Comment on above: Performed By: #### B MARLEY, CMADM ####[facility] Gayakadgen[address] [place], [place] [address]Dr. Antonella Medrano EGFR-NON AF INDIAN 53 mL/min/1.73m2 Critically low >=60 [facility] Comment on above: Performed By: #### B MARLEY, EMMANUEL ####[facility] Gwvrmordts5[address] [place] [address]Dr. Antonella Medrano Glucose [Mass/Vol] 466 mg/dL Critically high 74-106 T [facility] Comment on above: Performed By: #### B MARLEY, EMMANUEL ####[facility] Oqntbkicjj5632 [place] [address]Dr. Antonella Medrano Potassium [Moles/Vol] 4.0 mmol/L Normal 3.5-5.1 [facility] Comment on above: Performed By: #### B MARLEY, EMMANUEL ####[facility] [address]teq[address] [place], [place] [address]Dr. Antonella Medrano Sodium [Moles/Vol] 135 mmol/L Critically low 136-145 [facility] Comment on above: Performed By: #### B MARLEY, EMMANUEL ####[facility] B[address]ab[address]drw[address] [place], [place] [address]Dr. Antonella Medrano Urea nitrogen [Mass/Vol] 16.0 mg/dL Normal 7.0-18.0 [facility] Comment on above: Performed By: #### B EMMANUEL ROACH ####[facility] My[address]pmzjnp[address] [place], [place] [address]Dr. Antonella Medrano Urea nitrogen/Creatinine [Mass ratio] 15.2 mg/mg Normal [facility] Comment on above: Performed By: #### B EMMANUEL ROACH ####[facility] Glotbjrtuy16[address] [place], [place] [address]Dr. Antonella Medraon TROPONIN-Ion 03-16-2022 Troponin I.cardiac [Mass/Vol] 0.07 ng/mL High 0.00-0.04 [facility] Comment on above: Order Comment: No: D o not add to previous draw Result Comment: REFE RENCE RANGES: 0.00 - 0.04 ng/ml NORMAL 0.05 - 0.50 ng/ml INDETERMINATE > 0.50 ng/ml CONSISTENT WITH AN M.I. Performed By: #### 3 5200 #### [facility] [address] [place] [address], [facility] Troponin I.cardiac [Mass/Vol] 0.08 ng/mL High 0.00-0.04 [facility] Comment on above: Order Comment: No: D o not add to previous draw Result Comment: REFE RENCE RANGES: 0.00 - 0.04 ng/ml NORMAL 0.05 - 0.50 ng/ml INDETERMINATE > 0.50 ng/ml CONSISTENT WITH AN M.I. Performed By: #### 8 [id number] #### [facility] [address] [place] [address], [facility] URINE MICROSCOPIC ONLYon BACTERIA TRACE Abnormal NONE SEEN [facility] Comment on above: Performed By: #### HALEY CLARK ####[facility] Mojqhcplvx49[address] [place] [address]Dr. Antonella Medrano Bacteria identified Cx Nom (U) INDICATED Normal [facility] Comment on above: Performed By: #### LAAT CLARKRO ####[facility] Mfqcoibmcw7[address] [place] [address]Dr. Antonella Medrano CAST NONE SEEN Normal NONE SEEN [facility] Comment on above: Performed By: #### LATA CLARKRO ####[facility] Bdlttuitzv2318 [place] [address]Dr. Antonella Medrano Crystals LM Nom (Urine sed) NONE SEEN Normal NONE SEEN [facility] Comment on above: Performed By: #### LATA CLARKRO ####[facility] Tzcdrgmeky8774 [place] [address]Dr. Antonella Medrano Epithelial cells LM Ql (Urine sed) FEW Abnormal NONE SEEN /RARE [facility] Comment on above: Performed By: #### LATA CLARKRO ####[facility] Owhhnaebob[address] [place] [address]Dr. Marialan Medrano MUCOUS NONE SEEN Normal NONE SEEN [facility] Comment on above: Performed By: #### LATA CLARKRO ####[facility] Vhhdiyclba[address]105 [place] [address]Dr. Antonella Medrano RBC 5-10 Abnormal 0-2 [facility] Comment on above: Performed By: #### HALEY CLARK ####[facility] Uyeompnjqy1394 [place] [address]Dr. Antonella Medrano WBC 10-20 Abnormal NONE SEEN [facility] Comment on above: Performed By: #### HALEY CLARK ####[facility] Kreooxwqtz2033 [place] [address]Dr. Antonella Medrano XR CHEST 1 Von 03-16-2022 XR CHEST 1 V Normal [facility] CBC AUTO DIFFon 02-17-2022 BASO # 0.0 103/ul Normal 0.0-0.1 [facility] Comment on above: Performed By: #### C BC ####[facility] B[address]dqmkjxa[address] [place], [place] [address]Dr. Antonella Medrano Basophils/100 WBC (Bld) 0.4 % Normal 0.2-2.0 [facility] Comment on above: Performed By: #### C BC ####[facility] H[address]onvgcpo[address] [place], [place] [address]Dr. Antonella Medrano EO # 0.2 103/ul Normal 0.0-0.7 [facility] Comment on above: Performed By: #### C BC ####[facility] X[address]qwdga[address] [place], [place] [address]Dr. Mariafilemon Medrano Eosinophils/100 WBC (Bld) 2.8 % Normal 0.9-7.0 [facility] Comment on above: Performed By: #### C BC ####[facility] Nnettywvhu[address] [place], [place] [address]Dr. Mariafilemon Medrano Erythrocyte distribution width (RBC) [Ratio] 12.5 % Normal 11.0-15.0 [facility] Comment on above: Performed By: #### C BC ####[facility] Obcouwcquy74[address] [place], [place] [address]Dr. Mariafilemon Medrano Hematocrit (Bld) [Volume fraction] 45.7 % Normal 36.0-48.0 [facility] Comment on above: Performed By: #### C BC ####[facility] Fqdxnpmgmm74[address] [place] [address]Dr. Antonella Medrano Hemoglobin (Bld) [Mass/Vol] 15.1 g/dL Normal 12.0-16.0 [facility] Comment on above: Performed By: #### C BC ####[facility] Gretezknjg[address]9 [place] [address]Dr. Antonella Medrano IG # 0.04 10e3/ul Critically high 0.00-0.03 [facility] Comment on above: Performed By: #### C BC ####[facility] Fycqhvtlck5512 [place] [address]Dr. Antonella Medrano IG % 0.5 % Normal 0.0-0.5 [facility] Comment on above: Performed By: #### C BC ####[facility] Xhthrjczpw[address] [place], [place] [address]Dr. Mariafilemon Mitchell LYMPH # 2.3 103/ul Normal 1.2-3.8 [facility] Comment on above: Performed By: #### C BC ####[facility] Eclycsqifg7[address] [place], [place] [address]Dr. Antonella Medrano Lymphocytes/100 WBC (Bld) 26.7 % Normal 20.5-60.0 [facility] Comment on above: Performed By: #### C BC ####[facility] [address]qowczolr[address] [place], [place] [address]Dr. Antonella Medrano MANUAL DIFF REQ NO Normal [facility] Comment on above: Performed By: #### C BC ####[facility] U[address]svzmb[address] [place], [place] [address]Dr. Antonella Medrano MCH (RBC) [Entitic mass] 28.4 pg Normal 26.7-34.0 [facility] Comment on above: Performed By: #### C BC ####[facility] Y[address] [place], [place] [address]Dr. Antonella Medrano MCHC (RBC) [Mass/Vol] 33.0 g/dL Normal 29.9-35.2 [facility] Comment on above: Performed By: #### C BC ####[facility] Wsiumungej[address] [place] [id number]. Antonella Medrano MCV (RBC) [Entitic vol] 86.1 fL Normal 81.0-99.0 [facility] Comment on above: Performed By: #### C BC ####[facility] Lgkidozqgv0844 [place] [id number]. Antonella Medrano MONO # 0.7 103/ul Normal 0.3-0.8 [facility] Comment on above: Performed By: #### C BC ####[facility] Fzvbpdmsuk7244 [place] [address]Dr. Antonella Medrano Monocytes/100 WBC (Bld) 7.8 % Normal 1.7-12.0 [facility] Comment on above: Performed By: #### C BC ####[facility] Haaghavffo[address]47 [place] [address]Dr. Antonella Medrano NEUT # 5.2 103/ul Normal 1.4-6.5 [facility] Comment on above: Performed By: #### C BC ####[facility] Vgbcuzmnll4274 [place] [id number]. Antonella Medrano Neutrophils/100 WBC (Bld) 61.8 % Normal 43.0-75.0 [facility] Comment on above: Performed By: #### C BC ####[facility] Xmnwjhtrow9227 [place] [address]Dr. Antonella Medrano Platelet mean volume (Bld) [Entitic vol] 11.8 fL Normal 9.5-13.5 [facility] Comment on above: Performed By: #### C BC ####[facility] Cnywdxnojz5226 [place] [phone]. Antonella Medrano PLT 203 103/ul Normal 150-450 [facility] Comment on above: Performed By: #### C BC ####[facility] [address] [place], [place] [address]Dr. Antonella Medrano RBC 5.31 106/ul Normal 4.20-5.40 [facility] Comment on above: Performed By: #### C BC ####[facility] H[address]hjer[address] [place], [place] [address]Dr. Antonella Medrano WBC 8.4 103/ul Normal 4.0-11.0 [facility] Comment on above: Performed By: #### C BC ####[facility] Tagqzaaadm[address] [place] [address]Dr. Antonella Medrano POINT OF CARE GLUCOSEon 01-22 Glucose [Mass/Vol] 363 mg/dL Critically high 74-106 [facility] Comment on above: Performed By: #### P OCGLUC ####[facility] Hwwapyyfzi[address] [place] [address]Dr. Antonella Medrano Glucose [Mass/Vol] 288 mg/dL Critically high -106 [facility] Comment on above: Performed By: #### P OCGLUC ####[facility] Njemibzcxs6[address] [place] [address]Dr. Antonella Medrano PROF CHEM 8 (BAS METB)on Anion gap [Moles/Vol] 12.1 mmol/L [facility] Comment on above: Performed By: #### B MP ####[facility] Wkidpwktsd7269 [place] [address]Dr. Antonella Medrano Calcium [Mass/Vol] 8.7 mg/dL Normal 8.5-10.1 [facility] Comment on above: Performed By: #### B MP ####[facility] Iocnayvwpw1857 [place] [address]Dr. Antonella Medrano Chloride [Moles/Vol] 104 mmol/L Normal 98-107 [facility] Comment on above: Performed By: #### B MP ####[facility] Xgdsraiybp8756 [place] [address]Dr. Mariafilemon Mitchell CO2 [Moles/Vol] 23.3 mmol/L Normal 21.0-32.0 [facility] Comment on above: Performed By: #### B MP ####[facility] Vnkiuwwwdy5581 [place] [address]Dr. Antonella Medrano Creatinine [Mass/Vol] 0.79 mg/dL Normal 0.55-1.02 [facility] Comment on above: Performed By: #### B MP ####[facility] Usrtrnmiaj7757 [place] [id number]. Antonella Medrano EGFR-AF INDIAN >60 Normal >=60 [facility] Comment on above: Performed By: #### B MP ####[facility] Mnblpunhnh4473 [place] [id number]. Antonella Medrano EGFR-NON AF INDIAN >60 Normal >=60 [facility] Comment on above: Performed By: #### B MP ####[facility] Ojzsirvvug1851 [place] [address]Dr. Antonella Medrano Glucose [Mass/Vol] 291 mg/dL Critically high 74-106 T [facility] Comment on above: Performed By: #### B MP ####[facility] Pyawsrtsrv8224 [place] [address]Dr. Antonella Medrano Potassium [Moles/Vol] 4.4 mmol/L Normal 3.5-5.1 [facility] Comment on above: Performed By: #### B MP ####[facility] Uhzuuuayne0922 [place] [address]Dr. Antonella Medrano Sodium [Moles/Vol] 135 mmol/L Critically low 136-145 Th [facility] Comment on above: Performed By: #### B MP ####[facility] Uhmgqqhuse1758 [place] [address]Dr. Antonella Medrano Urea nitrogen [Mass/Vol] 20.0 mg/dL Critically high 7.0-18.0 [facility] Comment on above: Performed By: #### B MP ####[facility] Tdiauquzpw2856 [place] [address]Dr. Antonella Medrano Urea nitrogen/Creatinine [Mass ratio] 25.3 mg/mg Normal [facility] Comment on above: Performed By: #### B MP ####[facility] Gkkapymyxl3844 [place] [address]Dr. Antonella Medrano CBC AUTO DIFFon 02-16-2022 BASO # 0.0 103/ul Normal 0.0-0.1 [facility] Comment on above: Performed By: #### C BC ####[facility] Bkjcvdaksi2333 [place] [phone]. Antonella Medrano Basophils/100 WBC (Bld) 0.3 % Normal 0.2-2.0 [facility] Comment on above: Performed By: #### C BC ####[facility] Rpeubvzimo1398 [place] [phone]. Antonella Medrano EO # 0.1 103/ul Normal 0.0-0.7 [facility] Comment on above: Performed By: #### C BC ####[facility] Zrcsyjnlfn[address] [place], [place] [address]Dr. Antonella Medrano Eosinophils/100 WBC (Bld) 1.2 % Normal 0.9-7.0 [facility] Comment on above: Performed By: #### C BC ####[facility] [address]vgpstos[address] [place], [place] [address]Dr. Antonella Medrano Erythrocyte distribution width (RBC) [Ratio] 12.5 % Normal 11.0-15.0 [facility] Comment on above: Performed By: #### C BC ####[facility] [address]qmnulwk[address] [place], [place] [address]Dr. Antonella Medrano Hematocrit (Bld) [Volume fraction] 51.7 % Critically high 36.0-48.0 [facility] Comment on above: Performed By: #### C BC ####[facility] Uhjwvwpdcm7019 [place] [phone]. Antonella Medrano Hemoglobin (Bld) [Mass/Vol] 17.2 g/dL Critically high 12.0-16.0 [facility] Comment on above: Performed By: #### C BC ####[facility] Kloimjfcts48[address] [place] [phone]. Antonella Medrano IG # 0.08 10e3/ul Critically high 0.00-0.03 [facility] Comment on above: Performed By: #### C BC ####[facility] [address] [place], [place] [address]Dr. Antonella Medrano IG % 0.8 % Critically high 0.0-0.5 [facility] Comment on above: Performed By: #### C BC ####[facility] Kcqvrnuvvw3041 [place] [phone]. Antonella Medrano LYMPH # 2.3 103/ul Normal 1.2-3.8 [facility] Comment on above: Performed By: #### C BC ####[facility] Lesezbfitd7156 [place] [phone]. Antonella Medrano Lymphocytes/100 WBC (Bld) 22.1 % Normal 20.5-60.0 [facility] Comment on above: Performed By: #### C BC ####[facility] Ufhejwzjdl6[address] [place] [phone]. Antonella Medrano MANUAL DIFF REQ NO Normal [facility] Comment on above: Performed By: #### C BC ####[facility] Msjqqooxtr2825 [place] [address]Dr. Antonella Medrano MCH (RBC) [Entitic mass] 28.5 pg Normal 26.7-34.0 [facility] Comment on above: Performed By: #### C BC ####[facility] Ndpasiuczr6511 [place] [phone]. Antonella Medrano MCHC (RBC) [Mass/Vol] 33.3 g/dL Normal 29.9-35.2 [facility] Comment on above: Performed By: #### C BC ####[facility] Gkfwkzazmm3565 [place] [phone]. Antonella Medrano MCV (RBC) [Entitic vol] 85.7 fL Normal 81.0-99.0 [facility] Comment on above: Performed By: #### C BC ####[facility] Dlktkcadkf2367 [place] [phone]. Antonella Medrano MONO # 0.9 103/ul Critically high 0.3-0.8 [facility] Comment on above: Performed By: #### C BC ####[facility] Xowrmxnnkg9494 [place] [phone]. Antonella Mitchell Monocytes/100 WBC (Bld) 8.5 % Normal 1.7-12.0 [facility] Comment on above: Performed By: #### C BC ####[facility] Wopfxuwfzv6903 [place] [phone]. Antonella Medrano NEUT # 7.0 103/ul Critically high 1.4-6.5 [facility] Comment on above: Performed By: #### C BC ####[facility] Gughrtctei9214 [place] [phone]. Antonella Medrano Neutrophils/100 WBC (Bld) 67.1 % Normal 43.0-75.0 [facility] Comment on above: Performed By: #### C BC ####[facility] Cmkmbqmkky7056 [place] [phone]. Antonella Medrano Platelet mean volume (Bld) [Entitic vol] 11.3 fL Normal 9.5-13.5 [facility] Comment on above: Performed By: #### C BC ####[facility] Hymwkhjpko1163 [place] [phone]. Antonella Medrano PLT 279 103/ul Normal 150-450 [facility] Comment on above: Performed By: #### C BC ####[facility] Kilirrgrbh1744 [place] [phone]. Antonella Medrano RBC 6.03 106/ul Critically high 4.20-5.40 [facility] Comment on above: Performed By: #### C BC ####[facility] Vehnqclmvk9748 [place] [phone]. Antonella Medrano WBC 10.4 103/ul Normal 4.0-11.0 [facility] Comment on above: Performed By: #### C BC ####[facility] Ahamwekieu[address] [place] [phone]. Antonella Medrano CT HEAD WO CONon 02-16-2022 CT HEAD WO CON Normal [facility] CULTURE URINEon 02-16-2022 CULTURE URINE Culture Observations : LIGHT GROWTH OF MIXED GENITAL LUCY. NO POTENTIAL PATHOGENS SEEN. Normal [facility] Comment on above: Performed By: #### U RCX ####[facility] [address] [place], [place] [address]Dr. Antonella Medrano Covid-19 PCR (CVDTBH)on 01-22 SARS-CoV-2 (COVID-19) RNA TAISHA+probe Ql (Unsp spec) Not detected Normal NOT DETECTED [facility] Comment on above: Result Comment: When [...] for this test is supported by the [place] [employer] and [employer]'s declaration that [...] be used). Performed By: #### C VDTB ####[facility] Svswefsrsy[address] [place], [place] [address]Dr. Antonella Medrano ER URINE PROFILEon Bilirubin Ql (U) Negative Normal NEGATIVE [facility] Comment on above: Performed By: #### U MICRO, ERUR ####[facility] C[address]cqfc[address] [place], [place] [address]Dr. Antonella Medrano Clarity (U) CLEAR Normal CLEAR [facility] Comment on above: Performed By: #### U MICRO, ERUR ####[facility] Wgxmokqcyc[address] [place], [place] [address]Dr. Antonella Medrano Color (U) YELLOW Normal YELLOW [facility] Comment on above: Performed By: #### U MICRO, ERUR ####[facility] Djjorqkliz37[address] [place], [place] [address]Dr. Antonella RAZOAHD A micrscopic examina tion will be performed if indicated. Normal [facility] Comment on above: Performed By: #### U MICRO, ERUR ####[facility] Qgcddxgiey15[address] [place], [place] [address]Dr. Antonella Medrano Glucose Ql (U) >1000 Abnormal NEGATIVE [facility] Comment on above: Performed By: #### U MICRO, ERUR ####[facility] Punxvxjizk34[address] [place], [place] [address]Dr. Antonella Medrano Hemoglobin Ql (U) SMALL Abnormal NEGATIVE [facility] Comment on above: Performed By: #### U MICRO, ERUR ####[facility] Rxotbbrrhd904[address] [place], [place] [address]Dr. Antonella Medrano Ketones Ql (U) Negative Normal NEGATIVE [facility] Comment on above: Performed By: #### U MICRO, ERUR ####[facility] Fljjvjgcjn7763[address] [place], [place] [address]Dr. Antonella Medrano LEUKOCYTES SMALL Abnormal NEGATIVE The [facility] Comment on above: Performed By: #### U MICRO, ERUR ####[facility] Rasicdpjhg426[address] [place], [place] [address]Dr. Antonella Medrano Nitrite Ql (U) Negative Normal NEGATIVE The [facility] Comment on above: Performed By: #### U MICRO, ERUR ####[facility] Bbmxefqytb24[address] [place], [place] [address]Dr. Antonella Medrano pH (U) 5.5 [pH] Normal 5-9 [facility] Comment on above: Performed By: #### U MICRO, ERUR ####[facility] Ombmriryze5533[address] [place], [place] [address]Dr. Antonella Medrano Protein (U) [Mass/Vol] 100 mg/dL Abnormal NEGAT LAZ/ TRACE [facility] Comment on above: Performed By: #### U MICRO, ERUR ####[facility] Kmlwsaktfu[address] [place], [place] [address]Dr. Antonella Medrano SPEC GRAVITY 1.025 Normal 1.005-<=1.0 25 [facility] Comment on above: Performed By: #### U MICRO, ERUR ####[facility] Nowpxzncve1623[address] [place], [place] [address]Dr. Antonella Medrano UR MICRO IND INDICATED Normal [facility] Comment on above: Performed By: #### U MICRO, ERUR ####[facility] [address] [place] [address]Dr. Antonella Medrano Urobilinogen Qn (U) 0.2 {Oleg'U}/dL Normal 0.2 - 1. 0 [facility] Comment on above: Performed By: #### U MICRO, ERUR ####[facility] [address] [place] [address]Dr. Antonella Medrano LACTATE/LACTIC ACIDon 2021 Lactate [Moles/Vol] 1.2 mmol/L Normal 0.4-1.9 [facility] Comment on above: Performed By: #### L ACT ####[facility] [address]ocqal[address] [place] [address]Dr. Antonella Mitchell Lactate [Moles/Vol] 2.5 mmol/L Critically high 0.4-1.9 [facility] Comment on above: Performed By: #### L ACT ####[facility] Rnyefkgscy6850[address] [place], [place] [address]Dr. Mariafilemon Mitchell POINT OF CARE GLUCOSEon 01-22 Glucose [Mass/Vol] 308 mg/dL Critically high 74-106 [facility] Comment on above: Performed By: #### P OCGLUC ####[facility] Kexupxluir84[address] [place], [place] [address]Dr. Mariafilemon Mitchell Glucose [Mass/Vol] 356 mg/dL Critically high 74-106 [facility] Comment on above: Performed By: #### P OCGLUC ####[facility] Hzxjjxkbqb5638[address] [place], [place] [address]Dr. Antonella Medrano Glucose [Mass/Vol] 254 mg/dL Critically high 74-106 [facility] Comment on above: Performed By: #### P OCGLUC ####[facility] Xthywshdwo1710[address] [place], [place] [address]Dr. Antonella Medrano Glucose [Mass/Vol] 103 mg/dL Normal 74-106 [facility] Comment on above: Performed By: #### P OCGLUC ####[facility] Rzfoqpbboe5[address] [place], [place] [address]Dr. Antonella Medrano PROF 14(COMP METB)on 022 Albumin [Mass/Vol] 3.0 g/dL Critically low 3.4-5.0 [facility] Comment on above: Performed By: #### C MP ####[facility] Lwtfopitlw1232[address] [place], [place] [address]Dr. Antonella Medrano Albumin/Globulin [Mass ratio] 0.8 {ratio} Normal [facility] Comment on above: Performed By: #### C MP ####[facility] Cwtaipbqpa[address] [place], [place] [address]Dr. Antonella Medrano ALP [Catalytic activity/Vol] 109 U/L Normal 46-116 [facility] Comment on above: Performed By: #### C MP ####[facility] Uykluzfnys5060[address] [place], [place] [address]Dr. Antonella Medrano ALT [Catalytic activity/Vol] 18 U/L Normal 14-59 [facility] Comment on above: Performed By: #### C MP ####[facility] Zzmdxdnznt8467[address] [place], [place] [address]Dr. Antonella Medrano Anion gap [Moles/Vol] 14.5 mmol/L Normal [facility] Comment on above: Performed By: #### C MP ####[facility] Omhpscimec20[address] [place], [place] [address]Dr. Antonella Medrano AST [Catalytic activity/Vol] 11 U/L Critically low 15-37 [facility] Comment on above: Performed By: #### C MP ####[facility] Hikccstxdf6049[address] [place], [place] [address]Dr. Antonella Medrano Bilirubin [Mass/Vol] 0.3 mg/dL Normal 0.2-1.0 [facility] Comment on above: Performed By: #### C MP ####[facility] Rukzouorod1862[address] [place], [place] [address]Dr. Antonella Medrano Calcium [Mass/Vol] 9.2 mg/dL Normal 8.5-10.1 [facility] Comment on above: Performed By: #### C MP ####[facility] Gojftzfbxf4075[address] [place], [place] [address]Dr. Antonella Medrano Chloride [Moles/Vol] 99 mmol/L Normal 98-107 [facility] Comment on above: Performed By: #### C MP ####[facility] Maslmepvgr0707[address] [place], [place] [address]Dr. Antonella Medrano CO2 [Moles/Vol] 25.5 mmol/L Normal 21.0-32.0 [facility] Comment on above: Performed By: #### C MP ####[facility] Hakrertpnx422[address] [place], [place] [address]Dr. Antonella Mitchell Creatinine [Mass/Vol] 1.57 mg/dL Critically high 0.55-1.02 [facility] Comment on above: Performed By: #### C MP ####[facility] Zzmzywvsap1869[address] [place], [place] [address]Dr. Antonella Mitchell EGFR-AF INDIAN 40 mL/min/1.73m2 Critically low >=60 [facility] Comment on above: Performed By: #### C MP ####[facility] Ntovczpamb24[address] [place], [place] [address]Dr. Antonella Mitchell EGFR-NON AF INDIAN 33 mL/min/1.73m2 Critically low >=60 [facility] Comment on above: Performed By: #### C MP ####[facility] Jrucplchoz7760[address] [place], [place] [address]Dr. Antonella Mitchell Globulin (S) [Mass/Vol] 3.9 g/dL Normal [facility] Comment on above: Performed By: #### C MP ####[facility] Mokcfqggbr4775[address] [place], [place] [address]Dr. Antonella Mitchell Glucose [Mass/Vol] 99 mg/dL Normal 74-106 [facility] Comment on above: Performed By: #### C MP ####[facility] Covowvkyxm382[address] [place], [place] [address]Dr. Antonella Medrano Potassium [Moles/Vol] 4.0 mmol/L Normal 3.5-5.1 [facility] Comment on above: Performed By: #### C MP ####[facility] Gebjmafqng[address] [place], [place] [address]Dr. Antonella Medrano Protein [Mass/Vol] 6.9 g/dL Normal 6.4-8.2 [facility] Comment on above: Performed By: #### C MP ####[facility] Qtut[address]xfoio[address] [place] [address]Dr. Mariafilemon Medrano Sodium [Moles/Vol] 135 mmol/L Critically low 136-145 [facility] Comment on above: Performed By: #### C MP ####[facility] Ggcjqkeqgh658[address] [place], [place] [address]Dr. Mariafilemon Medrano Urea nitrogen [Mass/Vol] 35.0 mg/dL Critically high 7.0-18.0 [facility] Comment on above: Performed By: #### C MP ####[facility] Hzzrpolugy5[address] [place], [place] [address]Dr. Antonella Medrano Urea nitrogen/Creatinine [Mass ratio] 22.3 mg/mg Normal [facility] Comment on above: Performed By: #### C MP ####[facility] Ebvmfpzpwz4779[address] [place], [place] [address]Dr. Antonella Medrano URINE MICROSCOPIC ONLYon BACTERIA TRACE Abnormal NONE SEEN [facility] Comment on above: Performed By: #### U MICRO, ERUR ####[facility] Vqrbnyupsj5[address] [place], [place] [address]Dr. Antonella Medrano Bacteria identified Cx Nom (U) INDICATED Normal [facility] Comment on above: Performed By: #### U MICRO, ERUR ####[facility] D[address]frbxhohj15[address] [place], [place] [address]Dr. Antonella Merdano CAST SEEN Abnormal NONE SEEN [facility] Comment on above: Performed By: #### U MICRO, ERUR ####[facility] Ldkobknsdw6739[address] [place], [place] [address]Dr. Antonella Medrano Crystals LM Nom (Urine sed) NONE SEEN Normal NONE SEEN [facility] Comment on above: Performed By: #### U MICRO, ERUR ####[facility] Dfucpmiaex4[address] [place], [place] [address]Dr. Antonella Medrano Epithelial cells LM Ql (Urine sed) RARE Normal NONE SEEN /RARE [facility] Comment on above: Performed By: #### U MICRO, ERUR ####[facility] [address] [place], [place] [address]Mg. Antonella Medrano MUCOUS NONE SEEN Normal NONE SEEN [facility] Comment on above: Performed By: #### U MICRO, ERUR ####[facility] [address]isd[address] [place], [place] [address]Af. Antonella Medrano RBC 0-2 Normal 0-2 [facility] Comment on above: Performed By: #### U MICRO, ERUR ####[facility] Ot[address] [place], [place] [address]On. Antonella Medrano WBC 20-50 Abnormal NONE SEEN [facility] Comment on above: Performed By: #### U MICRO, ERUR ####[facility] [address] [place] [id number]. Antonella Medrano XR CHEST 1 Von 02-16-2022 XR CHEST 1 V Normal [facility] Complete Blood Counton 02-15 Erythrocyte distribution width (RBC) [Ratio] 12.4 % Normal 11.0-15.0 [facility] Comment on above: Performed By: #### C BC, CMP #### [facility] [address], [place] [id number] Hematocrit (Bld) [Volume fraction] 50.9 % High 35.0-47.0 [facility] Comment on above: Performed By: #### C BC, CMP #### [facility] [address], [place] [id number] Hemoglobin (Bld) [Mass/Vol] 17.2 g/dL High 11.6-15.5 [facility] Comment on above: Performed By: #### C BC, CMP #### [facility] [address], [place] [id number] MCH (RBC) [Entitic mass] 28.6 pg Normal 27.0-33.0 [facility] Comment on above: Performed By: #### C BC, CMP #### [facility] [address], [place] [id number] MCHC (RBC) [Mass/Vol] 33.8 g/dL Normal 32.0-36.0 [facility] Comment on above: Performed By: #### C BC, CMP #### [facility] [address], [place] [id number] MCV (RBC) [Entitic vol] 85 fL Normal 80-100 [facility] Comment on above: Performed By: #### C BC, CMP #### [facility] [address], [place] [id number] Platelet mean volume (Bld) [Entitic vol] 11.60 fL Normal 7.50-12.50 [facility] Comment on above: Performed By: #### C BC, CMP #### [facility] [address], [place] [id number] Platelets (Bld) [#/Vol] 273 10*3/uL Normal 140-400 [facility] Comment on above: Performed By: #### C BC, CMP #### [facility] [address], [place] [id number] RBC (Bld) [#/Vol] 6.01 10*6/uL High 3.90-5.20 [facility] Comment on above: Performed By: #### C BC, CMP #### [facility] [address], [place] [id number] RDW-SD 37.6 fL Normal 37.0-50.0 [facility] Comment on above: Performed By: #### C BC, CMP #### [facility] [address], [place] [id number] WBC (Bld) [#/Vol] 9.0 10*3/uL Normal 3.8-11.0 [facility] Comment on above: Performed By: #### C BC, CMP #### [facility] [address], [place] [id number] Comprehensive Metabolic Pane cedric 02-15-2022 Albumin [Mass/Vol] 3.9 g/dL Normal 3.6-5.1 [facility] Comment on above: Performed By: #### C BC, CMP #### [facility] [address], [place] [id number] Albumin/Globulin [Mass ratio] 1.3 {ratio} Normal 1.0-2.5 [facility] Comment on above: Performed By: #### C BC, CMP #### [facility] [address] [place], [place] [id number] ALP [Catalytic activity/Vol] 141 U/L High 35-119 [facility] Comment on above: Performed By: #### C BC, CMP #### [facility] [address] [facility] [place] [id number] ALT [Catalytic activity/Vol] 11 U/L Normal 6-33 [facility] Comment on above: Result Comment: 08/23 Female reference range changed. Performed By: #### C BC, CMP #### [facility] [address] [place], [place] [id number] Anion gap [Moles/Vol] 19 mmol/L Normal 12-20 [facility] Comment on above: Result Comment: Effe ctive 09/28/2019 reference range changed. Performed By: #### C BC, CMP #### [facility] [address] [facility] [place] [id number] AST [Catalytic activity/Vol] 12 U/L Normal 9-34 [facility] Comment on above: Performed By: #### C BC, CMP #### [facility] [address] [facility] [place] [id number] Bilirubin [Mass/Vol] 0.32 mg/dL Normal 0.30-1.20 [facility] Comment on above: Performed By: #### C BC, CMP #### [facility] [address] [facility] [place] [id number] BUN/CREA 23 Ratio High 6-22 [facility] Comment on above: Performed By: #### C BC, CMP #### [facility] [address] [place], [place] [id number] Calcium [Mass/Vol] 9.9 mg/dL Normal 8.6-10.2 [facility] Comment on above: Performed By: #### C BC, CMP #### [facility] [address] [place], [place] [id number] Chloride [Moles/Vol] 95 mmol/L Low 98-107 [facility] Comment on above: Performed By: #### C BC, CMP #### [facility] [address], [place] [id number] CO2 [Moles/Vol] 21 mmol/L Normal 20-31 [facility] Comment on above: Performed By: #### C BC, CMP #### [facility] [address], [place] [id number] Creatinine [Mass/Vol] 1.3 mg/dL Normal 0.6-1.4 [facility] Comment on above: Performed By: #### C BC, CMP #### [facility] [address], [place] [id number] eGFRAA 51 mL/min/1.73m2 Low >60 [facility] Comment on above: Performed By: #### C BC, CMP #### [facility] [address], [place] [id number] eGFRNAA 42 mL/min/1.73m2 Low >60 [facility] Comment on above: Performed By: #### C BC, CMP #### [facility] [address], [place] [id number] Globulin (S) [Mass/Vol] 3.0 g/dL Normal 1.9-3.7 [facility] Comment on above: Performed By: #### C BC, CMP #### [facility] [address], [place] [id number] Glucose [Mass/Vol] 366 mg/dL High 65-99 [facility] Special[facility] Comment on above: Result Comment: For FASTING Glucose --- ADA reference ranges: Normal 65-99 mg/dl Prediabetes 100-125 Diabetes >/= 126 Performed By: #### C BC, CMP #### [facility] [address], [place] [id number] Potassium [Moles/Vol] 4.7 mmol/L Normal 3.5-5.5 [facility] Comment on above: Performed By: #### C BC, CMP #### [facility] [address], [place] [id number] Protein [Mass/Vol] 6.9 g/dL Normal 6.1-8.1 [facility] Comment on above: Performed By: #### C BC, CMP #### [facility] [address], [place] [id number] Sodium [Moles/Vol] 131 mmol/L Low 135-146 [facility] Comment on above: Performed By: #### C BC, CMP #### [facility] [address], [place] [id number] Urea nitrogen [Mass/Vol] 30 mg/dL High 7-25 [facility] Comment on above: Performed By: #### C BC, CMP #### [facility] [address], [place] [id number] CBC AUTO DIFFon 02-01-2022 BASO # 0.0 103/ul Normal 0.0-0.1 [facility] Comment on above: Performed By: #### C BC ####[facility] [address] [place] [address]Dr. Antonella Medrano Basophils/100 WBC (Bld) 0.3 % Normal 0.2-2.0 [facility] Comment on above: Performed By: #### C BC ####[facility] [address] [place] [address]Dr. Antonella Medrano EO # 0.2 103/ul Normal 0.0-0.7 [facility] Comment on above: Performed By: #### C BC ####[facility] [address] [place] [address]Dr. Antonella Medrano Eosinophils/100 WBC (Bld) 1.9 % Normal 0.9-7.0 [facility] Comment on above: Performed By: #### C BC ####[facility] [address]unuowgp[address] [place] [address]Dr. Antonella Medrano Erythrocyte distribution width (RBC) [Ratio] 12.6 % Normal 11.0-15.0 [facility] Comment on above: Performed By: #### C BC ####[facility] Ghyorbgjab[address] [place], [place] [address]Dr. Antonella Medrano Hematocrit (Bld) [Volume fraction] 49.6 % Critically high 36.0-48.0 [facility] Comment on above: Performed By: #### C BC ####[facility] [address] [place] [id number]. Antonella Medrano Hemoglobin (Bld) [Mass/Vol] 16.6 g/dL Critically high 12.0-16.0 [facility] Comment on above: Performed By: #### C BC ####[facility] [address] [place] [address]Dr. Antonella Medrano IG # 0.04 10e3/ul Critically high 0.00-0.03 [facility] Comment on above: Performed By: #### C BC ####[facility] [address]lsbfz[address] [place] [address]Dr. Antnoella Medrano IG % 0.4 % Normal 0.0-0.5 [facility] Comment on above: Performed By: #### C BC ####[facility] Zfdnasophn[address] [place], [place] [address]Dr. Antonella Medrano LYMPH # 2.4 103/ul Normal 1.2-3.8 [facility] Comment on above: Performed By: #### C BC ####[facility] [address] [place] [address]Dr. Antonella Medrano Lymphocytes/100 WBC (Bld) 25.9 % Normal 20.5-60.0 [facility] Comment on above: Performed By: #### C BC ####[facility] [address] [place] [address]Dr. Antonella Medrano MANUAL DIFF REQ NO Normal [facility] Comment on above: Performed By: #### C BC ####[facility] [address] [place], [place] [address]Dr. Antonella Medrano MCH (RBC) [Entitic mass] 28.7 pg Normal 26.7-34.0 [facility] Comment on above: Performed By: #### C BC ####[facility] Hzuzahugjx[address] [place], [place] [address]Dr. Antonella Medrano MCHC (RBC) [Mass/Vol] 33.5 g/dL Normal 29.9-35.2 [facility] Comment on above: Performed By: #### C BC ####[facility] F[address]ix[address]ioxu[address] [place] [id number]. Antonella Medrano MCV (RBC) [Entitic vol] 85.8 fL Normal 81.0-99.0 [facility] Comment on above: Performed By: #### C BC ####[facility] Tmwax[address]ru[address] [place] [address]Dr. Antonella Medrano MONO # 0.7 103/ul Normal 0.3-0.8 [facility] Comment on above: Performed By: #### C BC ####[facility] Rqfofvbpvm20[address] [place], [place] [address]Dr. Antonella Medrano Monocytes/100 WBC (Bld) 7.9 % Normal 1.7-12.0 [facility] Comment on above: Performed By: #### C BC ####[facility] Ph[address]ngrhry08[address] [place], [place] [address]Dr. Antonella Medrano NEUT # 5.8 103/ul Normal 1.4-6.5 [facility] Comment on above: Performed By: #### C BC ####[facility] Z[address]enylfni64[address] [place], [place] [address]Dr. Antonella Medrano Neutrophils/100 WBC (Bld) 63.6 % Normal 43.0-75.0 [facility] Comment on above: Performed By: #### C BC ####[facility] Nfhrzojmos4[address] [place], [place] [address]Dr. Antonella Medrano Platelet mean volume (Bld) [Entitic vol] 12.3 fL Normal 9.5-13.5 [facility] Comment on above: Performed By: #### C BC ####[facility] C[address]fczrvp[address] [place], [place] [address]Dr. Antonella Medrano PLT 212 103/ul Normal 150-450 [facility] Comment on above: Performed By: #### C BC ####[facility] W[address]nqjhmf[address] [place], [place] [address]Dr. Antonella Mitchell RBC 5.78 106/ul Critically high 4.20-5.40 [facility] Comment on above: Performed By: #### C BC ####[facility] Nvvz[address]eivs[address] [place] [address]Dr. Antonella Medrano WBC 9.1 103/ul Normal 4.0-11.0 [facility] Comment on above: Performed By: #### C BC ####[facility] [address]ffdyi[address] [place] [address]Dr. Antonella Medrano CULTURE URINEon 02-01-2022 CULTURE URINE Culture Observations : LIGHT GROWTH OF MIXED SKIN LUCY. NO POTENTIAL PATHOGENS SEEN. Normal [facility] Comment on above: Performed By: #### U RCX ####[facility] [address]xaf[address] [place] [address]Dr. Mariafilemon Medrano ER URINE PROFILEon Bilirubin Ql (U) Negative Normal NEGATIVE [facility] Comment on above: Performed By: #### HALEY CLARK ####[facility] Octjybvmsr35[address] [place], [place] [address]Dr. Antonella Medrano Clarity (U) CLEAR Normal CLEAR [facility] Comment on above: Performed By: #### HALEY CLARK ####[facility] [address]stkxrv[address] [place], [place] [address]Dr. Mariafilemon Mitchell Color (U) LT. YELLOW Normal YELLOW [facility] Comment on above: Performed By: #### HALEY CLARK ####[facility] [address] [place], [place] [address]Dr. Antonella Medrano ERUAHD A micrscopic examina tion will be performed if indicated. Normal [facility] Comment on above: Performed By: #### HALEY CLARK ####[facility] Z[address] [place], [place] [address]Dr. Antonella Medrano Glucose Ql (U) 1000 mg/dl Abnormal NEGATIVE [facility] Comment on above: Performed By: #### HALEY CLARK ####[facility] K[address] [place], [place] [address]Dr. Antonella Medrano Hemoglobin Ql (U) SMALL Abnormal NEGATIVE [facility] Comment on above: Performed By: #### HALEY CLARK ####[facility] [address] [place] [address]Dr. Antonella Medrano Ketones Ql (U) Negative Normal NEGATIVE [facility] Comment on above: Performed By: #### HALEY CLARK ####[facility] [address] [place] [address]Dr. Antonella Medrano LEUKOCYTES TRACE Abnormal NEGATIVE [facility] Comment on above: Performed By: #### HALEY CLARK ####[facility] [address] [place], [place] [address]Dr. Antonella Medrano Nitrite Ql (U) Negative Normal NEGATIVE [facility] Comment on above: Performed By: #### HALEY CLARK ####[facility] [address] [place], [place] [address]Dr. Antonella Medrano pH (U) 5.5 [pH] Normal 5-9 [facility] Comment on above: Performed By: #### HALEY CLARK ####[facility] [address] [place], [place] [address]Dr. Antonella Medrano Protein (U) [Mass/Vol] 30 mg/dL Abnormal NEGAT LAZ/ TRACE [facility] Comment on above: Performed By: #### HALEY CLARK ####[facility] [address] [place], [place] [address]Dr. Antonella Medrano SPEC GRAVITY 1.015 Normal 1.005-<=1.0 25 [facility] Comment on above: Performed By: #### HALEY CLARK ####[facility] [address] [place], [place] [address]Dr. Antonella Medrano UR MICRO IND INDICATED Normal [facility] Comment on above: Performed By: #### HALEY CLARK ####[facility] [address] [place], [place] [address]Dr. Antonella Medrano Urobilinogen Qn (U) 0.2 {Oleg'U}/dL Normal 0.2 - 1. 0 [facility] Comment on above: Performed By: #### HALEY CLARK ####[facility] [address] [place] [address]Dr. Antonella Medrano POINT OF CARE GLUCOSEon 01-21 Glucose [Mass/Vol] 285 mg/dL Critically high 74-106 [facility] Comment on above: Performed By: #### P OCGLUC ####[facility] [address] [place] [address]Dr. Antonella Medrano Glucose [Mass/Vol] 352 mg/dL Critically high 74-106 [facility] Comment on above: Performed By: #### P OCGLUC ####[facility] [address] [place] [address]Dr. Antonella Medrano Glucose [Mass/Vol] 503 mg/dL Critically high 74-106 [facility] Comment on above: Result Comment: Resu lt Not Confirmed Performed By: #### P OCGLUC ####[facility] [address] [place] [address]Dr. Antonella Medrano PROF 14(COMP METB)on 022 Albumin [Mass/Vol] 3.2 g/dL Critically low 3.4-5.0 [facility] Comment on above: Performed By: #### C MP ####[facility] [address] [place], [place] [address]Dr. Antonella Medrano Albumin/Globulin [Mass ratio] 0.7 {ratio} Normal [facility] Comment on above: Performed By: #### C MP ####[facility] Att[address]fsfs[address] [place] [address]Dr. Antonella Medrano ALP [Catalytic activity/Vol] 128 U/L Critically high 46-116 [facility] Comment on above: Performed By: #### C MP ####[facility] [address] [place] [address]Dr. Antonella Medrano ALT [Catalytic activity/Vol] 16 U/L Normal 14-59 [facility] Comment on above: Performed By: #### C MP ####[facility] Xkbnmnibxc[address] [place] [address]Dr. Antonella Medrano Anion gap [Moles/Vol] 14.3 mmol/L Normal [facility] Comment on above: Performed By: #### C MP ####[facility] Wagtipbdmb[address] [place] [address]Dr. Antonella Medrano AST [Catalytic activity/Vol] 20 U/L Normal 15-37 [facility] Comment on above: Performed By: #### C MP ####[facility] Mtq[address]xsg[address] [place] [id number]. Antonella Medrano Bilirubin [Mass/Vol] 0.6 mg/dL Normal 0.2-1.0 [facility] Comment on above: Performed By: #### C MP ####[facility] [address] [place], [place] [address]Dr. Antonella Medrano Calcium [Mass/Vol] 9.9 mg/dL Normal 8.5-10.1 [facility] Comment on above: Performed By: #### C MP ####[facility] [address] [place], [place] [address]Dr. Antonella Medrano Chloride [Moles/Vol] 94 mmol/L Critically low 98-107 [facility] Comment on above: Performed By: #### C MP ####[facility] [address] [place], [place] [address]Dr. Antonella Medrano CO2 [Moles/Vol] 25.7 mmol/L Normal 21.0-32.0 [facility] Comment on above: Performed By: #### C MP ####[facility] [address] [place], [place] [address]Dr. Antonella Medrano Creatinine [Mass/Vol] 1.00 mg/dL Normal 0.55-1.02 [facility] Comment on above: Performed By: #### C MP ####[facility] [address] [place] [address]Dr. Antonella Medrano EGFR-AF INDIAN >60 Normal >=60 [facility] Comment on above: Performed By: #### C MP ####[facility] [address]cpcolwpv[address] [place] [address]Dr. Antonella Medrano EGFR-NON AF INDIAN 56 mL/min/1.73m2 Critically low >=60 [facility] Comment on above: Performed By: #### C MP ####[facility] [address]om[address] [place] [id number]. Antonella Medrano Globulin (S) [Mass/Vol] 4.4 g/dL Normal [facility] Comment on above: Performed By: #### C MP ####[facility] [address] [place] [id number]. Antonella Medrano Glucose [Mass/Vol] 452 mg/dL Critically high 74-106 [facility] Comment on above: Performed By: #### C MP ####[facility] Ggbwquqoyh[address] [place] [id number]. Antonella Medrano Potassium [Moles/Vol] 5.0 mmol/L Normal 3.5-5.1 [facility] Comment on above: Performed By: #### C MP ####[facility] [address]xv[address]awvxu[address] [place] [address]Dr. Antonella Medrano Protein [Mass/Vol] 7.6 g/dL Normal 6.4-8.2 [facility] Comment on above: Performed By: #### C MP ####[facility] [address]br[address]emazpq[address] [place] [id number]. Antonella Medrano Sodium [Moles/Vol] 129 mmol/L Critically low 136-145 [facility] Comment on above: Performed By: #### C MP ####[facility] [address]odj[address] [place] [address]Dr. Antonella Medrano Urea nitrogen [Mass/Vol] 45.0 mg/dL Critically high 7.0-18.0 [facility] Comment on above: Performed By: #### C MP ####[facility] V[address]wt[address] [place] [id number]. Antonella Medrano Urea nitrogen/Creatinine [Mass ratio] 45.0 mg/mg Normal [facility] Comment on above: Performed By: #### C MP ####[facility] [address]ux[address]ocidx[address] [place] [id number]. Antonella Medrano URINE MICROSCOPIC ONLYon BACTERIA SMALL Abnormal NONE SEEN [facility] Comment on above: Performed By: #### E HALEY LEE ####[facility] [address] [place] [address]Dr. Antonella Medrano Bacteria identified Cx Nom (U) INDICATED Normal [facility] Comment on above: Performed By: #### LATA CLARKRO ####[facility] [address] [place] [address]Dr. nAtonella Medrano CAST NONE SEEN Normal NONE SEEN [facility] Comment on above: Performed By: #### LATA CLARKRO ####[facility] [address] [place] [address]Dr. Antonella Medrano Crystals LM Nom (Urine sed) NONE SEEN Normal NONE SEEN [facility] Comment on above: Performed By: #### LATA CLARKRO ####[facility] Rqoudsfxup[address] [place] [address]Dr. Antonella Medrano Epithelial cells LM Ql (Urine sed) FEW Abnormal NONE SEEN /RARE [facility] Comment on above: Performed By: #### LATA CLARKRO ####[facility] [address] [place] [address]Dr. Antonella Medrano MUCOUS NONE SEEN Normal NONE SEEN [facility] Comment on above: Performed By: #### LATA CLARKRO ####[facility] [address]ayqfnma[address] [place] [address]Dr. Antonella Medrano RBC 2-5 Abnormal 0-2 [facility] Comment on above: Performed By: #### LATA CLARKRO ####[facility] [address]zgfrn[address] [place] [address]Dr. Antonella Medrano WBC 10-20 Abnormal NONE SEEN [facility] Comment on above: Performed By: #### LATA CLARKRO ####[facility] [address]ru[address] [place] [address]Dr. Antonella Medrano Amylaseon 01-30-2022 ANGY 62 U/L Normal 28-100 [facility] Comment on above: Performed By: #### A MY, LIP #### [facility] [address] [place], [place] [id number] Complete Blood Counton 01-30 Erythrocyte distribution width (RBC) [Ratio] 12.5 % Normal 11.0-15.0 [facility] Comment on above: Performed By: #### C GEORGINA, CMP #### [facility] [address] [place], [place] [id number] Hematocrit (Bld) [Volume fraction] 51.5 % High 35.0-47.0 [facility] Comment on above: Performed By: #### C GEORGINA, CMP #### [facility] [address] [place], [place] [id number] Hemoglobin (Bld) [Mass/Vol] 17.4 g/dL High 11.6-15.5 [facility] Comment on above: Performed By: #### C GEORGINA, CMP #### [facility] [address] [place], [place] [id number] MCH (RBC) [Entitic mass] 29.0 pg Normal 27.0-33.0 [facility] Comment on above: Performed By: #### C GEORGINA, CMP #### [facility] [address] [place], [place] [id number] MCHC (RBC) [Mass/Vol] 33.8 g/dL Normal 32.0-36.0 [facility] Comment on above: Performed By: #### Francis ERICKSON, CMP #### [facility] [address] [place], [place] [id number] MCV (RBC) [Entitic vol] 86 fL Normal 80-100 [facility] Comment on above: Performed By: #### Francis ERICKSON, CMP #### [facility] [address] [place], [place] [id number] Platelet mean volume (Bld) [Entitic vol] 12.50 fL Normal 7.50-12.50 [facility] Comment on above: Performed By: #### Francis ERICKSON, CMP #### [facility] [address] [place], [place] [id number] Platelets (Bld) [#/Vol] 227 10*3/uL Normal 140-400 [facility] Comment on above: Performed By: #### Francis ERICKSON, CMP #### [facility] [address] [place], [place] [id number] RBC (Bld) [#/Vol] 6.00 10*6/uL High 3.90-5.20 [facility] Comment on above: Performed By: #### C BC, CMP #### [facility] [address] [place], [place] [id number] RDW-SD 39.0 fL Normal 37.0-50.0 [facility] Comment on above: Performed By: #### C BC, CMP #### [facility] [address] [place], [place] [id number] WBC (Bld) [#/Vol] 9.0 10*3/uL Normal 3.8-11.0 [facility] Comment on above: Performed By: #### C BC, CMP #### [facility] [address] [place], [place] [id number] [facility] 01-30-2022 Albumin [Mass/Vol] 4.3 g/dL Normal 3.6-5.1 [facility] Comment on above: Performed By: #### C BC, CMP #### [facility] [address] [place], [place] [id number] Albumin/Globulin [Mass ratio] 1.5 {ratio} Normal 1.0-2.5 [facility] Comment on above: Performed By: #### C BC, CMP #### [facility] [address] [place], [place] [id number] ALP [Catalytic activity/Vol] 148 U/L High 35-119 [facility] Comment on above: Performed By: #### C BC, CMP #### [facility] [address] [place], [place] [id number] ALT [Catalytic activity/Vol] 7 U/L Normal 6-33 [facility] Comment on above: Result Comment: 08/23 Female reference range changed. Performed By: #### C BC, CMP #### [facility] [address] [place], [place] [id number] Anion gap [Moles/Vol] 23 mmol/L High 12-20 [facility] Special[facility] Comment on above: Result Comment: Effe ctive 09/28/2019 reference range changed. Performed By: #### C BC, CMP #### [facility] [address] [place], [place] [id number] AST [Catalytic activity/Vol] 11 U/L Normal 9-34 [facility] Comment on above: Performed By: #### C BC, CMP #### [facility] [address] [place], [place] [id number] Bilirubin [Mass/Vol] 0.36 mg/dL Normal 0.30-1.20 [facility] Comment on above: Performed By: #### C BC, CMP #### [facility] [address] [place], [place] [id number] BUN/CREA 40 Ratio High 6-22 [facility] Comment on above: Performed By: #### C BC, CMP #### [facility] [address] [place], [place] [id number] Calcium [Mass/Vol] 10.0 mg/dL Normal 8.6-10.2 [facility] Comment on above: Performed By: #### C BC, CMP #### [facility] [address] [place], [place] [id number] Chloride [Moles/Vol] 92 mmol/L Low 98-107 [facility] Comment on above: Performed By: #### C BC, CMP #### [facility] [address] [place], [place] [id number] CO2 [Moles/Vol] 21 mmol/L Normal 20-31 [facility] Comment on above: Performed By: #### C BC, CMP #### [facility] [address] [place], [place] [id number] Creatinine [Mass/Vol] 0.9 mg/dL Normal 0.6-1.4 [facility] Comment on above: Performed By: #### C BC, CMP #### [facility] [address] [place], [place] [id number] eGFRAA 73 mL/min/1.73m2 Normal >60 [facility] Comment on above: Performed By: #### C BC, CMP #### [facility] [address] [place], [place] [id number] eGFRNAA 61 mL/min/1.73m2 Normal >60 [facility] Comment on above: Performed By: #### C BC, CMP #### [facility] [address] [place], [place] [id number] Globulin (S) [Mass/Vol] 2.9 g/dL Normal 1.9-3.7 [facility] Comment on above: Performed By: #### C BC, CMP #### [facility] [address] [place], [place] [id number] Glucose [Mass/Vol] 531 mg/dL Critically high 65-99 [facility] Comment on above: Result Comment: Crit ical result called to Abby Green at 01/30/2022 2:03 PM by Nicci Dailey (GLU) For FASTING Glucose --- ADA reference ranges: Normal 65-99 mg/dl Prediabetes 100-125 Diabetes >/= 126 Performed By: #### C BC, CMP #### [facility] [address] [place], [place] [id number] Potassium [Moles/Vol] 5.6 mmol/L High 3.5-5.5 [facility] Comment on above: Result Comment: Spec imen is hemolyzed. Results may be affected. Performed By: #### C BC, CMP #### [facility] [address] [place], [place] [id number] Protein [Mass/Vol] 7.2 g/dL Normal 6.1-8.1 [facility] Specialist Comment on above: Performed By: #### C BC, CMP #### [facility] [address] [place], [place] [id number] Sodium [Moles/Vol] 130 mmol/L Low 135-146 [facility] Comment on above: Performed By: #### C BC, CMP #### [facility] [address] [place], [place] [id number] Urea nitrogen [Mass/Vol] 37 mg/dL High 7-25 [facility] Comment on above: Performed By: #### C BC, CMP #### [facility] [address] [place], [place] [id number] Hemoglobin A1Con 01-30-2022 EAG 274.74 Normal [facility] Comment on above: Performed By: #### A 1C #### [facility] [address] [place], [place] [id number] HbA1c (Bld) [Mass fraction] 11.2 % High 4.0-6.0 [facility] Comment on above: Performed By: #### A 1C #### [facility] [address] [place], [place] [id number] Lipaseon 01-30-2022 LIP2 147 IU/L High 13-60 [facility] Comment on above: Performed By: #### A MY, LIP #### [facility] [address] [place], [place] [id number] Q - URINALYSIS,COMPLETEon Appearance (U) CLOUDY Abnormal CLEAR [facility] Comment on above: Order Comment: [facility] performed at: shopp, [facility], [address] , [address] [place] [address], [address] [place] [phone], [employer] [facility] Director: Aung Boateng MD [facility] Date/Time: [facility] Results Received Date/Time: [facility] Reported Date/Time: Performed By: #### 3 4F #### [facility] Default [address] [place] [address] BACTERIA NONE SEEN Normal NONE SEEN [facility] Comment on above: Order Comment: [facility] performed at: shopp, [facility], [address] , [address] [place] [address], [address] [place] [address], [employer] [facility] Director: Aung Boateng MD [facility] Date/Time: [facility] Results Received Date/Time: [facility] Reported Date/Time: Performed By: #### 3 4F #### [facility] Default [address] [place] [address] Bilirubin Ql (U) Negative Normal NEGATIVE [facility] Comment on above: Order Comment: [facility] performed at: shopp, [facility], [address], [address] [place] [address], [id number], [facility] Director: Aung Boateng MD [facility] Date/Time: [facility] Results Received Date/Time: [facility] Reported Date/Time: Performed By: #### 3 4F #### [facility] Default [address] [place] [address] Color (U) YELLOW Normal YELLOW [facility] Comment on above: Order Comment: [facility] performed at: shopp, [facility], [address] [place] [address], [address] [place] [address], [address] [place] [phone], [employer] [facility] Director: Aung Boateng MD [facility] Date/Time: [facility] Results Received Date/Time: [facility] Reported Date/Time: Performed By: #### 3 4F #### [facility] Default [address] [place] [address] Glucose Ql (U) 3+ Abnormal NEGATIVE [facility] Comment on above: Order Comment: [facility] performed at: shopp, [facility], [address] [place] [address], [address] [place] [address], [address] [place] [phone], [employer] [facility] Director: Aung Boateng MD [facility] Date/Time: [facility] Results Received Date/Time: [facility] Reported Date/Time: Performed By: #### 3 4F #### [facility] Default [address] [place] [address] HYALINE CAST NONE SEEN Normal NONE SEEN [facility] Comment on above: Order Comment: [facility] performed at: shopp, [facility], [address] [place] [address], [address] [place] [address], [address] [place] [phone], [employer] [facility] Director: Aung Boateng MD [facility] Date/Time: [facility] Results Received Date/Time: [facility] Reported Date/Time: Performed By: #### 3 4F #### [facility] Default [address] [place] [address] Ketones Ql (U) TRACE Abnormal NEGATIVE [facility] Comment on above: Order Comment: [facility] performed at: shopp, [facility], [address] [place] [address], [address] [place] [address], [address] [place] [phone], [employer] [facility] Director: Aung Boateng MD [facility] Date/Time: [facility] Results Received Date/Time: [facility] Reported Date/Time: Performed By: #### 3 4F #### [facility] Default [address] [place] [address] Leukocyte esterase Test strip Ql (U) 1+ Abnormal NEGATIVE [facility] Special[facility] Comment on above: Order Comment: [facility] performed at: [employer], [facility], [address] , [address] [place] [address], [address] [place] [phone], [employer] [facility] Director: Aung Boateng MD [facility] Date/Time: [facility] Results Received Date/Time: [facility] Reported Date/Time: Performed By: #### 3 4F #### [facility] Default [address] [place] [address] Nitrite Ql (U) Negative Normal NEGATIVE [facility] Comment on above: Order Comment: [facility] performed at: [employer], [facility], [address] [facility], [address] [place] [address], [address] [place] [phone], [employer] [facility] Director: Aung Boateng MD [facility] Date/Time: [facility] Results Received Date/Time: [facility] Reported Date/Time: Performed By: #### 3 4F #### [facility] [address] [place] [address] OCCULT BLOOD 1+ Abnormal NEGATIVE [facility] Special[facility] Comment on above: Order Comment: [facility] performed at: [employer], [facility], [address] [facility], [address] [place] [address], [address] [place] [phone], [employer] [facility] Director: Aung Boateng MD [facility] Date/Time: [facility] Results Received Date/Time: [facility] Reported Date/Time: Performed By: #### 3 4F #### [facility] Default [address] [place] [address] pH (U) 5.5 [pH] Normal 5.0-8.0 [facility] Comment on above: Order Comment: [facility] performed at: [facility], [facility], [address] [place] [address], [address] [place] [address], [address] [place] [phone], [employer] [facility] Director: Aung Boateng MD [facility] Date/Time: [facility] Results Received Date/Time: [facility] Reported Date/Time: Performed By: #### 3 4F #### [facility] [address] [place] [address] Protein Ql (U) 2+ Abnormal NEGATIVE [facility] Comment on above: Order Comment: [facility] performed at: [facility], [facility], [address] [place] [address], [address] [place] [address], [address] [place] [phone], [facility] Director: Aung Boateng MD [facility] Date/Time: [facility] Results Received Date/Time: [facility] Reported Date/Time: Performed By: #### 3 4F #### [facility] [address] [place] [address] RBC 0-2 Normal < OR = 2 [facility] Comment on above: Order Comment: [facility] performed at: [facility], [facility], [address] [place] [address], [address] [place] [address], [address] [place] [phone], [employer] [facility] Director: Aung Boateng MD [facility] Date/Time: [facility] Results Received Date/Time: [facility] Reported Date/Time: Performed By: #### 3 4F #### [facility] Default [address] [place] [address] Specific gravity (U) [Rel density] 1.033 Normal 1.001-1.035 [facility] [facility] Ankle Patch Molder Comment on above: Order Comment: [facility] Testing performed at: [facility], [facility], [address] [place] [address], [address] [place] [address], [address] [place] [address], Academic Support Center Director: Aung Boateng MD [facility] Collection Date/Time: [facility] Results Received Date/Time: [facility] Reported Date/Time: Performed By: #### 3 4F #### [facility] Default [address] [place] [address] SQUAMOUS EPITHELIAL CELLS NONE SEEN Normal < OR = 5 [facility] Ankle Patch Molder Comment on above: Order Comment: [facility] Testing performed at: shopp, [facility], [address] , [address] [place] [address], [address] [place] [address], Academic Support Center Director: Aung Boateng MD [facility] Collection Date/Time: [facility] Results Received Date/Time: [facility] Reported Date/Time: Performed By: #### 3 4F #### [facility] Default [address] [place] [address] TRANSITIONAL EPITHELIAL CELLS 0-5 Normal < OR = 5 [facility] Ankle Patch Molder Comment on above: Order Comment: [facility] Testing performed at: shopp, [facility], [address] , [address] [place] [address], [address] [place] [address], Academic Support Center Director: Aung Boateng MD [facility] Collection Date/Time: [facility] Results Received Date/Time: [facility] Reported Date/Time: Performed By: #### 3 4F #### [facility] Default [address] [place] [address] WBC 10-20 Abnormal < OR = 5 [facility] Ankle Patch Molder Comment on above: Order Comment: [facility] Testing performed at: shopp, [facility], [address] , [address] [place] [address], [address] [place] [address], Academic Support Center Director: Aung Boateng MD [facility] Collection Date/Time: [facility] Results Received Date/Time: [facility] Reported Date/Time: Performed By: #### 3 4F #### [facility] Default [address] [place] [address] YEAST MANY Abnormal NONE SEEN [facility] Ankle Patch Molder Comment on above: Order Comment: [facility] Testing performed at: QPT, [facility], [address], [address] [facility], [place], [address], Academic Support Center Director: Aung Boateng MD [facility] Collection Date/Time: [id number] [facility] Results Received Date/Time: [id number] [facility] Reported Date/Time: [id number] Performed By: #### 3 4F #### [facility] Default [address] [place] [address] CONSULTATIONon 04-09-[address] [facility] ATIENT NAME: KIARA BLANC : 56[facility] REC NO: [id number] ROOM: 0316ACCOUNT NO: [id number] ADMISSION DATE: 03/25/17PHYSICIAN: KAREN ROQUEHISTORY: The patient [...] the office in two weeks.KAREN ROQUED:04/09/2017 21:50:05 PH/Aliza_MIKE_TJob#: [id number] Doc#: [id number] [facility] Discharge Summaryon 03-27-20 17 HIM IP Note OR [facility] [employer] [facility] HIM IP Note OR [facility] [employer] [facility] Discharge Summaryon 03-26-20 17 HIM IP Note OR [facility] Service Officer [facility] History and Physicalon 03-26 HIM IP Note OR 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 [address] Performed By: #### P T, PTT ####[address] [place] [address] CBC with Diffon 03-25-2017 Abs. Bands 0.10 k/uL Normal 0.0-1.0 [facility] Comment on above: Performed By: #### C P, CDP ####[address] [place] [address] Abs. Basophil 0.00 k/uL Normal 0.0-0.2 [facility] Comment on above: Performed By: #### C P, CDP ####[address] [place] [address] Abs.Neutrophil (Seg) 7.66 k/uL Normal 1.8-7.7 [facility] Comment on above: Performed By: #### C P, CDP ####[address] [place] [address] Bands 1 % Normal [facility] Comment on above: Performed By: #### C P, CDP ####[address] [place] [address] Basophils/100 WBC Auto (Bld) 0 % Normal [facility] Comment on above: Performed By: #### C P, CDP ####[address] [place] [address] Blood morphology Normal Normal [facility] Comment on above: Result Comment: Perf ormed at [address] [place] [address] Performed By: #### C P, CDP ####[address] [place] [address] Eosinophils 0.10 10*3/uL Normal 0.0-0.4 [facility] Comment on above: Performed By: #### C P, CDP ####[address] [place] [address] Eosinophils/100 leukocytes 1 % Normal [facility] Comment on above: Performed By: #### C P, CDP ####[address] [place] [address] Lymphocytes 1.16 10*3/uL Normal 1.0-4.8 [facility] Comment on above: Performed By: #### C P, CDP ####[address] [place] [address] Lymphocytes/100 leukocytes 12 % Normal [facility] Comment on above: Performed By: #### C P, CDP ####[address] [place] [address] Monocytes 0.68 10*3/uL Normal 0.0-1.0 [facility] Comment on above: Performed By: #### C P, CDP ####[address] [place] [address] Monocytes/100 leukocytes 7 % Normal [facility] Comment on above: Performed By: #### C P, CDP ####[address] [place] [address] Neutrophil (Seg) 79 % Normal [facility] Comment on above: Performed By: #### C P, CDP ####[address] [place] [address] Erythrocyte distribution width Auto Ratio (RBC) 12.8 % Normal 12.1-15.2 [facility] Comment on above: Performed By: #### C P, CDP ####[address] [place] [address] Erythrocytes (RBC) 4.45 10*6/uL Normal 4.0-5.2 [facility] Comment on above: Performed By: #### C P, CDP ####[address] [place] [address] Hematocrit (HCT) 38.7 % Normal 36-46 [facility] Comment on above: Performed By: #### C P, CDP ####[address] [place] [address] Hemoglobin mass conc (Bld) 13.0 g/dL Normal 12.0-16.0 [facility] Comment on above: Performed By: #### C P, CDP ####[address] [place] [address] MCH 29.2 pg Normal 26-34 [facility] Comment on above: Performed By: #### C P, CDP ####[address] [place] [address] MCHC mass conc (RBC) 33.6 g/dL Normal 31-37 [facility] Comment on above: Performed By: #### C P, CDP ####[address] [place] [address] MCV 86.8 fL Normal 80-100 [facility] Comment on above: Performed By: #### C P, CDP ####[address] [place] [address] Platelets 239 10*3/uL Normal 140-450 [facility] Comment on above: Performed By: #### C P, CDP ####[address] [place] [address] WBC (Leukocytes) 9.7 10*3/uL Normal 3.5-11.0 [facility] Comment on above: Performed By: #### C P, CDP ####[address] [place] [address] Auto Diff Performed NOT REPORTED Normal [facility] Comment on above: Performed By: #### C P, CDP ####[address] [place] [address] Erythrocyte morphology NOT REPORTED Normal [facility] Comment on above: Performed By: #### C P, CDP ####[address] [place] [address] Platelet mean volume (PMV) NOT REPORTED Normal 6.0-12.0 [facility] Comment on above: Performed By: #### C P, CDP ####[address] [place] [address] Platelets NOT REPORTED Normal [facility] Comment on above: Performed By: #### C P, CDP ####[address] [place] [address] WBC Morphology NOT REPORTED Normal [facility] Comment on above: Performed By: #### C P, CDP ####[address] [place] [address] Comp Metabolic Profon 2016 (cont.) Normal [facility] Comment on above: Result Comment: Aver age GFR for 60-69 years old: 85 mL/min/1.73sq mChronic Kidney Disease: <60 mL/min/1.73sq mKidney failure: <15 mL/min/1.73sq meGFR calculated using average adult body mass. Additional eGFR calculator available at:http://[email or web address]_crcl_2012.htm Performed By: #### C P, CDP ####[address] [place] [address] Alanine aminotransferase (ALT) 14 U/L Normal 5-33 [facility] Comment on above: Performed By: #### C P, CDP ####[address] [place] [address] Albumin 3.4 g/dL Low 3.5-5.2 [facility] Comment on above: Performed By: #### C P, CDP ####[address] [place] [address] Albumin/Globulin Ratio 1.2 {ratio} Normal 1.0-2.5 M [facility] Comment on above: Performed By: #### C P, CDP ####[address] [place] [address] Alkaline Phos 102 U/L Normal 35-104 [facility] Comment on above: Performed By: #### C P, CDP ####[address] [place] [address] Anion gap 13 mmol/L Normal 9-17 [facility] Comment on above: Performed By: #### C P, CDP ####[address] [place] [address] Aspartate aminotransferase (AST) 14 U/L Normal <32 [facility] Comment on above: Performed By: #### C P, CDP ####[address] [place] [address] Bilirubin Ql (U) 0.15 mg/dL Low 0.3-1.2 [facility] Comment on above: Performed By: #### C P, CDP ####[address] [place] [address] BUN/CRE Ratio 34 High 9-20 [facility] Comment on above: Performed By: #### C P, CDP ####[address] [place] [address] Calcium 8.3 mg/dL Low 8.6-10.4 [facility] Comment on above: Performed By: #### C P, CDP ####[address] [place] [address] Chloride 108 mmol/L High 98-107 [facility] Comment on above: Performed By: #### C P, CDP ####[address] [place] [address] CO2 18 mmol/L Low 20-31 [facility] Comment on above: Performed By: #### C P, CDP ####[address] [place] [address] Creatinine 0.64 mg/dL Normal 0.50-0.90 [facility] Comment on above: Performed By: #### C P, CDP ####[address] [place] [address] eGFR (non-black) mL/min/{1.73_m2} Normal >60 [facility] Comment on above: Performed By: #### C P, CDP ####[address] [place] [address] Glucose mass conc 368 mg/dL High 70-99 [facility] Comment on above: Performed By: #### C P, CDP ####[address] [place] [address] Potassium molar conc 4.7 mmol/L Normal 3.7-5.3 [facility] Comment on above: Performed By: #### C P, CDP ####[address] [place] [address] Protein 6.3 g/dL Low 6.4-8.3 [facility] Comment on above: Performed By: #### C P, CDP ####[address] [place] [address] Sodium 139 mmol/L Normal 135-144 [facility] Comment on above: Performed By: #### C P, CDP ####[address] [place] [address] Staging: Normal [facility] Comment on above: Result Comment: Stag e 1: Some kidney damage normal GFRStage 2: Mild kidney damage GFR 60-89Stage 3: Moderate kidney damage GFR 30-59Stage 4: Severe kidney damage GFR 15-29Stage 5: Severe kidney damage GFR <15ESRD - chronic treatment by dialysis or transplantPerformed at [address] [place] [id number] ([phone]) Performed By: #### C P, CDP ####[address] [place] [address] Urea nitrogen 22 mg/dL Normal 8-23 [facility] Comment on above: Performed By: #### C P, CDP ####[address] [place] [address] Hemoglobin A1Con 03-25-2017 Glucose mass conc 220 mg/dL Normal [facility] Comment on above: Result Comment: The ADA and AACC recommend providing the estimated average glucose result to permit better patient understanding of their HBA1c result.Performed at [address] [place] [address] Performed By: #### G LYHGB ####[address] [place] [address] Hemoglobin A1c/Hemoglobin.total mass fraction (Bld) 9.3 % High 4.8-5.9 [facility] Comment on above: Performed By: #### G LYHGB ####[address] [place] [address] PTon 03-25-2017 INR Coag RelTime (PPP) 0.9 {INR} Normal 0.9-1.2 [facility] Comment on above: Result Comment: Perf ormed at [address] [place] [id number] ([phone]) Performed By: #### P T, PTT ####[address] [place] [address] Prothrombin time (PT) Coag time (PPP) 9.7 s Normal 9.7-12.2 [facility] Comment on above: Performed By: #### P T, PTT ####[address] , [place] [id number] Type + Screenon 03-25-2017 Type + Screen Sample Expiration 03/28/2017 Arm Band Number [id number] ABO/Rh(D) O POSITIVE Antibody Screen NEGATIVEPerformed at [facility] of [address] [place] [address] Normal [facility] Comment on above: Performed By: #### T YS ####[address] [place] [address] XR CHEST PORTABLEon 03-25-20 17 XR CHEST PORTABLE FINAL REPORTEXAM: XR CHEST PORTABLEHISTORY: preoperative; RT HIP FX TECHNIQUE: AP portable erect chest PRIORS: None.FINDINGS: The heart and vascularity are normal. Both lungs are well-expanded and there are no pulmonary infiltrates.The osseous structures are maintained. IMPRESSION: Impression: No acute cardiopulmonary disease. Interpreted by:MAISHA Lassiterigned by:Peter Escobar MD03/25/17Final result Normal [facility] XR HIP 2-3 VW W PELVIS RIGHT [...] by:MAISHA Lassiterigned by:Peter Escobar MD03/25/17Final result Normal [facility] XR KNEE RIGHT STANDARDon XR KNEE RIGHT [...] by:MAISHA Lassiterigned by:Peter Escobar MD03/25/17Final result Normal [facility] Vital Signs Date Time Vital Sign Value Performing Clinician Faci lity 07-18-2023 14:41-0400 Body height 165.1 cm Sonya Posada CNP Work Phone: [facility] Work Phone: 07-18-2023 14:41-0400 Body mass index (BMI) [Ratio] 31.5 kg/m2 Sonya Carlomarlen JURADO Work Phone: [facility] Work Phone: 07-18-2023 14:41-0400 Body surface area Derived from formula 1.9 m2 Sonya Carlomarlen JURADO Work Phone: [facility] Work Phone: 07-18-2023 14:41-0400 Body temperature 97.9 [degF] Sonya Carlomarlen JURADO Work Phone: [facility] Work Phone: 07-18-2023 14:41-0400 Body weight 85.73 kg Sonya Posada FUNDS TRANSFER CLERK Work Phone: [facility] Work Phone: 07-18-2023 14:41-0400 Diastolic blood pressure 60 mm[Hg] Sonyajosee Posada ADRIEN Work Phone: [facility] Work Phone: 07-18-2023 14:41-0400 Heart rate 106 /min Sonya Carlo FUNDS TRANSFER CLERK Work Phone: [facility] Work Phone: 07-18-2023 14:41-0400 Respiratory rate 16 /min Sonya Carlo FUNDS TRANSFER CLERK Work Phone: [facility] Work Phone: 07-18-2023 14:41-0400 SaO2% (BldA) [Mass fraction] 92 % Sonya Carlo FUNDS TRANSFER CLERK Work Phone: [facility] Work Phone: 07-18-2023 14:41-0400 Systolic blood pressure 108 mm[Hg] Sonya Carlo FUNDS TRANSFER CLERK Work Phone: [facility] Work Phone: 03-11-2023 13:35-0400 Body temperature 97.11 [degF] Sonya Carlo HOME WEATHERIZING WORKER - DRUM SAW OPERATOR Work Phone: [facility] [email or web address] 03-11-2023 13:35-0400 Diastolic blood pressure 60 mm[Hg] Sonya Carlo HOME WEATHERIZING WORKER - DRUM SAW OPERATOR Work Phone: [employer] 03-11-2023 13:35-0400 Heart rate 92 /min Sonya Carlo HOME WEATHERIZING WORKER - DRUM SAW OPERATOR Work Phone: [facility] [email or web address] 03-11-2023 13:35-0400 Respiratory rate 18 /min Sonya Carlo HOME WEATHERIZING WORKER - DRUM SAW OPERATOR Work Phone: [facility] [email or web address] 03-11-2023 13:35-0400 SaO2% (BldA) [Mass fraction] 98 % Sonya Carlo HOME WEATHERIZING WORKER - DRUM SAW OPERATOR Work Phone: [employer] 03-11-2023 13:35-0400 Systolic blood pressure 106 mm[Hg] Sonya Carlo HOME WEATHERIZING WORKER - DRUM SAW OPERATOR Work Phone: [employer] 03-07-2023 15:37-0400 Body height 165.1 cm Sonya Posada FUNDS TRANSFER CLERK Work Phone: [facility] Work Phone: 03-07-2023 15:37-0400 Body mass index (BMI) [Ratio] 33.4 kg/m2 Sonya Posada CNP Work Phone: [facility] Work Phone: 03-07-2023 15:37-0400 Body surface area Derived from formula 2 m2 Sonya Posada CNP Work Phone: [facility] Work Phone: 03-07-2023 15:37-0400 Body temperature 98.5 [degF] Sonya Posada CNP Work Phone: [facility] Work Phone: 03-07-2023 15:37-0400 Body weight 91.17 kg Sonya Posada CNP Work Phone: [facility] Work Phone: 03-07-2023 15:37-0400 Diastolic blood pressure 55 mm[Hg] Sonya Posada CNP Work Phone: [facility] Work Phone: 03-07-2023 15:37-0400 Heart rate 64 /min Sonya Posada CNP Work Phone: [facility] Work Phone: 03-07-2023 15:37-0400 SaO2% (BldA) [Mass fraction] 96 % Sonya Posada CNP Work Phone: [facility] Work Phone: 03-07-2023 15:37-0400 Systolic blood pressure 115 mm[Hg] Sonya Posada CNP Work Phone: [facility] Work Phone: Encounters Encounter Date Encounter Type Care Provider Facility Start: 11-06-2023 End: 11-06-2023 ambulatory NON STAFF Facility:[facility] Start: 11-06-2023 End: 11-06-2023 ambulatory [facility] Work Phone: Start: 11-06-2023 End: 11-06-2023 Departed Referred [facility] Start: 06-12-2023 End: 06-12-2023 ambulatory EHAB [facility] Start: 05-14-2023 End: 05-14-2023 ambulatory PHYSICIAN NO FAMILY Facility:[facility] Start: 05-14-2023 End: 05-14-2023 ambulatory MEASURER MACHINE-BC Angy Patel Work Phone: [facility] Work Phone: Start: 05-14-2023 End: 05-14-2023 Departed Referred MEASURER MACHINE-BC Angy Patel Work Phone: [facility] Work Phone: Start: 05-04-2023 Evaluation and management of inpatient [facility] Start: 05-01-2023 Evaluation and management of inpatient [facility] Start: 04-26-2023 End: 05-06-2023 Evaluation and management of inpatient [facility] Start: 03-11-2023 End: 03-11-2023 Emergency department patient visit Sonya Posada HOME WEATHERIZING WORKER - DRUM SAW OPERATOR Work Phone: [facility] ED Comment on above: Acute cystitis witho ut hematuria (Primary Dx) Start: 03-07-2023 End: 03-07-2023 [facility] visit, estab pt Sobia MALDONADO Work Phone: [facility] Work Phone: Start: 03-07-2023 End: 03-07-2023 [facility] visit new patient Sonya Posada FUNDS TRANSFER CLERK Work Phone: [facility] Work Phone: Start: 03-07-2023 End: 07-18-2023 [facility] visit, estab pt Soco Alcantar FUNDS TRANSFER CLERK Work Phone: [facility] Work Phone: Start: 03-07-2023 End: 03-08-2023 ambulatory SONYA POSADA [facility] Start: 01-22-2023 ambulatory Sonya Posada CNP [facility] Start: 01-10-2023 End: 01-10-[address] MITZY HURD Facility:[facility] Start: 01-06-2023 End: 01-06-2023 ambulatory YAZAN FABIAN Facility:[facility] Start: 01-01-2023 End: 01-02-[address] IGGY FRASER Facility:[facility] Start: 11-08-2022 End: 11-13-2022 ambulatory YAMILKA DONAHUE . Facility:[facility] Start: 08-23-2022 End: 08-23-[address] FANY ROBERT . Facility:[facility] Start: 07-31-2022 End: 07-31-2022 ambulatory REINALDO MARLOW Facility:[facility] Start: 07-18-2022 End: 07-19-2022 ambulatory FANY SAHU Facility:[facility] Start: 05-25-[address] PETER SANTOS Facilit y:[facility] Start: 05-13-2022 End: 05-14-[address] PETER SANTOS Facility:[facility] Start: 03-16-2022 End: 03-25-2022 Evaluation and management of inpatient YRIS QUAN Facility:[facility] Start: 03-16-2022 End: 03-16-[address] PETER SANTOS Facility:[facility] Start: 02-23-2022 ambulatory FANY SAHU Facility:[facility] Start: 02-16-2022 End: 02-17-[address] PETER SANTOS Facility:[facility] Start: 02-01-2022 End: 02-01-[address] PETER SANTOS Facility:[facility] Start: 07-07-2019 End: 07-07-2019 Patient encounter procedure Peter Santos -CT [facility] Start: 03-25-2017 End: 03-27-2017 Evaluation and management of inpatient [facility] Procedures Date Procedure Procedure Detail Performing Clinician Start: 07-18-2023 Current tobacco smoker Soco Alcantar FUNDS TRANSFER CLERK Work Phone: Start: 07-18-2023 Eye img valid match dx 7 stnd fld w/evc rtnopthy Soco Alcantar FUNDS TRANSFER CLERK Work Phone: Start: 07-18-2023 Foot examination performed Soco Alcantar FUNDS TRANSFER CLERK Work Phone: Start: 07-18-2023 Hemoglobin glycosylated a1c Soco Alcantar CNP Work Phone: Start: 07-18-2023 Most recent diastoli c blood pressure < 80 mm hg Soco Alcantar FUNDS TRANSFER CLERK Work Phone: Start: 07-18-2023 Most recent hg a1c>e qual to 8.0%& Soco Alcantar CNP Work Phone: Start: 07-18-2023 Most recent systolic blood pressure <130 mm hg Soco Alcantar FUNDS TRANSFER CLERK Work Phone: Start: 07-18-2023 Pt scrnd tobacco [...] Start: 03-07-2023 Current tobacco smoker Sonya Posada FUNDS TRANSFER CLERK Work Phone: Start: 03-07-2023 Drug test prsmv read direct optical obs pr date Sonya Posada FUNDS TRANSFER CLERK Work Phone: Start: 03-07-2023 Hysterectomy Sonya gee FUNDS TRANSFER CLERK Work Phone: Start: 03-07-2023 Knee Replacement Left C sho Posada FUNDS TRANSFER CLERK Work Phone: Start: 03-07-2023 Knee Replacement Right Sonya Posada FUNDS TRANSFER CLERK Work Phone: Start: 03-07-2023 Psychotherapy w/lasha ent 30 minutes Sobia MALDONADO Work Phone: Start: 03-07-2023 Pt scrnd tobacco use rcvd tobacco cessation talk Sonya Posada FUNDS TRANSFER CLERK Work Phone: Start: 03-07-2023 Surgical procedure Hayley Posada FUNDS TRANSFER CLERK Work Phone: Start: 03-07-2023 Urine albumin quantitative Sonya Posada FUNDS TRANSFER CLERK Work Phone: Start: 03-07-2023 Urnls dip stick/tabl et rgnt non-auto w/o micrscp Sonya Posada FUNDS TRANSFER CLERK Work Phone: Start: 07-07-2019 CT chest wo con Peter Santos Start: 03-27-2017 DISCHARGE PATIENT CAMERON ALFREDON Start: 03-27-2017 POCT GLUCOSE CAMERON FELT ON Start: 03-27-2017 GLUCOSE, WHOLE BLOOD JON LAURENT Start: 03-27-2017 POCT GLUCOSE CAMERON FELT ON Start: 03-27-2017 GLUCOSE, WHOLE BLOOD JON LAURENT Start: 03-27-2017 POCT GLUCOSE CAMERON FELT ON Start: 03-27-2017 INTAKE AND OUTPUT CAMERON LAURENT Start: 03-26-2017 GLUCOSE, WHOLE BLOOD JON LAURENT Start: 03-26-2017 POCT GLUCOSE CAMERON FELT ON Start: 03-26-2017 GLUCOSE, WHOLE BLOOD JA KANA LAURENT Start: 03-26-2017 POCT GLUCOSE CAMERON FELT ON Start: 03-26-2017 POCT GLUCOSE CAMERON FELT ON Start: 03-26-2017 DIET CARB CONTROL CAMERON LAURENT Start: 03-26-2017 GLUCOSE, WHOLE BLOOD JON LAURENT Start: 03-26-2017 POCT GLUCOSE CAMERON FELT ON Start: 03-26-2017 DAILY WEIGHTS CAMERON JI Start: 03-26-2017 INTAKE AND OUTPUT CAMERON MEHRAN Start: 03-25-2017 GLUCOSE, WHOLE BLOOD JON LAURENT [...] CAMERON LAURENT Start: 03-25-2017 POCT GLUCOSE CAMERON AUBRIE ON Start: 03-25-2017 PT EVAL AND TREAT CAMERON LAURENT Start: 03-25-2017 PULSE OXIMETRY SPOT CHECK CAMERON LAURENT Start: 03-25-2017 REASON FOR NO CHEMIC AL VTE PROPHYLAXIS CAMERON MEHRAN Start: 03-25-2017 TELEMETRY MONITORING JA KANA MEHRAN Start: 03-25-2017 TOBACCO CESSATION EDUCATION CAMERON MEHRAN Start: 03-25-2017 VERIFY INFORMED CONSENT CAMERON MEHRAN Start: 03-25-2017 VITAL SIGNS CAMERON AUBRIE ON [...] Gay LAURENT Start: 03-25-2017 HAYS/UROLOGY CARE SILVIO LAURENT Start: 03-25-2017 EKG 12-LEAD [...] (Diabetes, CKD 3-4, OR last GFR 15-59) [facility] [facility] Start: 08-19-2023 [facility] visit, estab pt Medical E stablished Patient [facility] Work Phone: Start: 07-18-2023 End: 07-18-2023 Patient education based on identified need [facility] Start: 04-06-2023 Urine Culture & Sensitivity (88702) [facility] Start: 03-21-2023 [facility] visit, estab pt Medical E stablished Patient [facility] Work Phone: Start: 03-08-2023 Annual Wellness Visi t (AWV) Annual Wellness Visit (AWV) [facility] Start: 03-07-2023 End: 03-07-2023 Patient education based on identified need [facility] Start: 03-07-2023 CBC W Auto Different ial panel - Blood [facility] Start: 03-07-2023 Lipid 1996 panel - S elizabeth or Plasma LIPID PROFILE [facility] Start: 10-31-2021 COVID-19 Vaccine (5 - Booster for Moderna series) COVID-19 Vaccine (5 - Booster for Moderna series) [facility] Start: 03-25-2018 Hemoglobin A1c measurement A1C test (Diabetic or Prediabetic) [facility] Start: 2011 Screening for osteoporosis DEXA (modify frequency per FRAX score) [facility] Start: 2006 Screening for malign ant neoplasm of breast Breast cancer screen [facility] Start: 2006 Shingles vaccine (1 of 2) Shingles vaccine (1 of 2) [facility] Start: 2001 Screening for malign ant neoplasm of colon [facility] Start: 1975 DTaP/Tdap/Td vaccine (1 - Tdap) DTaP/Tdap/Td vaccine (1 - Tdap) [facility] [email or web address] Start: 1974 Glaucoma screening Diabetic retinal exam [facility] Start: 1974 Hepatitis C screening Hepatitis C sc reen [facility] Start: 1974 Urine screening for protein Diabetic Alb to Cr ratio (uACR) test [facility] Start: 1968 Depression Monitoring Depression Mon itoring [facility] Start: 1966 Diabetic foot examination Diabetic foot exam [facility] Start: 1966 Lipid panel Lipids [facility] End: 03-11-2023 Culture, Urine [facility] Work Phone: Comment on above: Once for 1 Occurrenc es starting 03/11/2023 until 03/11/2023 Immunizations Immunization Date Immunization Notes Care Provider Valeria winston 01-02-2023 pneumococcal polysaccharide vaccine, 23 valent Sonya Carlo FUNDS TRANSFER CLERK Work Phone: [facility] 09-05-2021 1st Dose MODERNA COV ID-19 Vaccine Sonya Carlo FUNDS TRANSFER CLERK Work Phone: [facility] 08-08-2021 diphtheria, tetanus toxoids and pertussis vaccine Sonya Carlo FUNDS TRANSFER CLERK Work Phone: [facility] 08-07-2021 influenza, high dose seasonal, preservative-free Sonya Carlo FUNDS TRANSFER CLERK Work Phone: [facility] 01-01-2021 1st Dose MODERNA COV ID-19 Vaccine Sonya Carlo FUNDS TRANSFER CLERK Work Phone: [facility] 12-05-2020 1st Dose MODERNA COV ID-19 Vaccine Sonya Carlo FUNDS TRANSFER CLERK Work Phone: [facility] 08-30-2020 Seasonal, quadrivale nt, recombinant, injectable influenza vaccine, preservative free Sonya Carlo FUNDS TRANSFER CLERK Work Phone: [facility] 08-28-2019 influenza, injectabl e, quadrivalent, contains preservative Sonya Carlo FUNDS TRANSFER CLERK Work Phone: [facility] 09-20-2016 influenza, seasonal, injectable, preservative free Sonya Carlo FUNDS TRANSFER CLERK Work Phone: [facility] Payers Date Payer Category Payer Self-pay [id number] 2014 Medicare [id number] 2014 Medicare [id number] 1959 Self-pay [id number] 1959 Unknown [id number] 1955 Unknown [id number] 2.16.8 [id number] 1955 Unknown [id number] 2.16.84 0.1.941177.3.579.2.593 1955 Unknown [id number] 2.16.84 0.1.896266.3.579.2.593 1956 Unknown [id number] 2.16.84 0.1.593387.3.579.2.593 1956 Unknown [id number] 2.16.84 0.1.296347.3.579.2.593 1956 Unknown [id number] 2.16.84 0.1.839204.3.579.2.593 1956 Unknown [id number] 2.16.84 0.1.102254.3.579.2.593 1956 Unknown [id number] 2.16.84 0.1.338476.3.579.2.593 1956 Unknown [id number] 2.16.84 0.1.589983.3.579.2.593 1956 Unknown [id number] 2.16.84 0.1.701731.3.579.2.593 1956 Unknown [id number] 2.16.84 0.1.064973.3.579.2.593 1956 Unknown [id number] 2.16.84 0.1.335695.3.579.2.593 1956 Unknown [id number] 2.16.84 0.1.357225.3.579.2.593 1956 Unknown [id number] 2.16.84 0.1.828092.3.579.2.593 1955 Unknown [id number] 2.16. 840.1.398661.3.579.2.175 Medicare Medicare [id number] Private Health Insurance [facility] [id number] Unknown [id number] 2.16.8 40.1.037404.3.579.2.531 Unknown [id number] 2.16.8 40.1.792397.3.579.2.531 Social History Date Type Detail Facility Tobacco smoking status NHIS Unknown if ever smoked [facility] Start: 1955 Sex Assigned At Female F [facility] Assertion Lives with spous e (finding) [facility] Assertion Emotional stress (finding) [facility] Assertion Cigarette smoker (finding) [facility] Start: 09-04-2018 Assertion Smoker (finding) [facility] Assertion Exposure to poll ution (event) [facility] Tobacco smoking status Unknown if ever smoked [facility] Work Phone: Start: 03-25-2017 Tobacco smoking status NHIS Smokes tobacco daily [employer] Start: 03-25-2017 Cigarettes smoked current (pack per day) - Reported 0.5 [facility]ON [email or web address] Start: 03-11-2023 Alcohol intake 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 automatic of alcohol (finding) [employer] Start: 1955 Sex Assigned At Not on file B ON [email or web address] Assertion Gender identity finding (finding) [facility] Assertion Finding of sexua l orientation (finding) [facility] Assertion Currently not se xually active (finding) [facility] NEGATED: Highlighted row Assertion Current drinker of alcohol (finding) [facility] NEGATED: Highlighted row Assertion [facility] NEGATED: Highlighted row Assertion Finding relating to drug misuse behavior (finding) [facility] Medical Equipment Procedure Code Equipment Code Equipment Origin al Text Equipment Identifier Dates ReliOn Pen Needl es 31G X 6 MM Miscellaneous [id number] Start: 06-25-2023 Goals Date Patient Goal Desired Activity /State Mental Status Date Assessment Result Facility Cognitive function The estimated intelligence was normal Intelligence finding (finding) [facility] Work Phone: Clinical Notes 03-25-2022 to 07-18-2023 Note Date & Type Note Facility 07-18-2023 Instructions Includes: Instructions for all patient encounters Discussed nutritional needs teach healthy choices including fruits and vegetables Last Documented On 3 2:45PM ; [facility] Patient education about a pr oper diet Last Documented On 3 2:45PM ; [facility] Discussed concerns about exe rcise : promote physical activity Last Documented On 3 2:45PM ; [facility] Referred Patient to a Diabet es Self-Management Program Last Documented On 3 3:12PM ; [facility] introduced patient to [facility] integrated model of care. ~[facility] provided supportive and active listening, allowing patient the space to discuss concerns and explored with patient coping strategies and resources for support. Patient declines additional resources at this time but is aware to reach out to the office should she have questions or concerns. ~[facility] encouraged patient to continue addressing physical health needs and attend appointments as scheduled Last Documented On 3 9:52PM ; [facility] Discussed nutritional needs teach healthy choices including fruits and vegetables Last Documented On 3 3:42PM ; [facility] Patient education about a pr oper diet Last Documented On 3 3:42PM ; [facility] Discussed concerns about exe rcise : promote physical activity ~ ~Get labs done and follow up in two weeks Last Documented On 3 5:15AM ; [facility] Referred Patient to a Diabet es Self-Management Program Last Documented On 3 4:08PM ; [facility] Work Phone: 1(744) 635-642110-26-2023 Evaluation note Includes: Assessments for all patient encounters Findings Encounter Date [Z68.31 - Body mass index [B OK] 31.0-31.9, adult] assessment of body mass index Medical Established Patient with Soco Alcantar CNP 07/18/2023 Last Documented On 3 2:26PM ; [facility] Dependence on nicotine in ci garettes - uncomplicated Medical Established Patient with Soco Alcantar FUNDS TRANSFER CLERK 07/18/2023 Last Documented On 3 2:26PM ; [facility] Essential hypertension Medical Establish ed Patient with Soco Alcantar FUNDS TRANSFER CLERK 07/18/2023 Last Documented On 3 2:26PM ; [facility] Type 2 diabetes mellitus wit hout complication Medical Established Patient with Soco Alcantar FUNDS TRANSFER CLERK 07/18/2023 Last Documented On 3 2:26PM ; [facility] 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 Medical Established Patient with Soco Alcantar FUNDS TRANSFER CLERK 07/18/2023 Last Documented On 3 2:26PM ; [facility] Anxiety disorder NOS Established Patient with Sobia Short LISWS 03/07/2023 Last Documented On 3 9:52PM ; [facility] Dependence on nicotine in ci garettes - uncomplicated BH Established Patient with Sobia Short LISWS 03/07/2023 Last Documented On 3 9:52PM ; [facility] Mild recurrent major depression BH Estab lished Patient with Sobia Short LISWS 03/07/2023 Last Documented On 3 9:52PM ; [facility] [Body mass index [BMI] 33.0- 33.9, adult] assessment of body mass index Medical New Patient with Sonya Carlo FUNDS TRANSFER CLERK 03/07/2023 Last Documented On 3 7:51PM ; [facility] Colon screening Medical New Patient with Sonya Carlo FUNDS TRANSFER CLERK 03/07/2023 Last Documented On 3 7:51PM ; [facility] Diabetes Risk Test Score was 7.0 score 03/07/2023 Medical New Patient with Sonya Carlo FUNDS TRANSFER CLERK 03/07/2023 Last Documented On 3 7:51PM ; [facility] Screening for Hep C Medical New Patient with Ronnie sie Carlo FUNDS TRANSFER CLERK 03/07/2023 Last Documented On 3 7:51PM ; [facility] Screening for HIV Medical New Patient with Joselyn e Carlo FUNDS TRANSFER CLERK 03/07/2023 Last Documented On 3 7:51PM ; [facility] Work Phone: 1(732) 436-461410-26-2023 History general Narrative - Reported Includes: Medical History in patient's chart Description Last Updated Not planning to have a baby in the next 12 months 07/18/2023 Last Documented On 3 2:26PM ; [facility] History of tooth extraction 03/07/2023 Last Documented On 3 7:51PM ; [facility] No medical history or no significant his tory 03/07/2023 Last Documented On 3 7:51PM ; [facility] No previous hospitalizations 03/07/2023 Last Documented On 3 7:51PM ; [facility] Recent immunization for flu 03/07/2023 Last Documented On 3 7:51PM ; [facility] Work Phone: 1(228) 902-930610-26-2023 Progress note* Progress note Date Encounter Last Documented by 07/18/2023 Medical Established Patient Last documented on 07/19/2023; 2:26 PM, Soco Alcantar CNP; [facility] Active Problems & Conditions - F41.9 [...] For Visit Visit for: Recent discharge from [facility]. Referred Here Not referred by urgent care [...] reports that she was recently in a residential and was discharged about 2 weeks ago. Patient reports that she was admitted to the residential after a fall. Has not had any falls since being home. Patient reports that she is not sure how long she was in the residential, states she was in the hospital prior to the residential admission but only for a few days. Patient reports that she thinks she was a [facility]. Patient reports that she checks sugars [...] 0 days, 0 refills - ReliOn Pen Purdin 31G X 6 MM Miscellaneous 31G X [...] 07/18/2023 02:41 pm BP-Sitting L108/60 mmHg Pulse Rate-Jysunxm619 bpm Respiration Rate16 per min Temp-Tbunuzmr36.9 F Squppq04 in Dcsiyt775 lbs Body Mass Index31.5 kg/m2 Body Surface Area1.9 m2 Oxygen Vvkeetzgtq69 % Vital Signs: - Systolic blood pressure [...] mammogram ordered, will look for colonoscopy at [facility]. Patient to follow up in 1 month [...] : Not at all. Bottom of Document [facility] Note Chief Complaint: Patient here for follow up NSTEMI. She denies chest pain, SOB, and palpitations. Gets a little lightheaded at times. She was discharged on Entresto and Farxiga but neither of them are on her medication list from the residential. HPI: Kiara Blanc is a 68 y.o. female with a known history of coronary artery disease, prior coronary artery bypass graft surgery, who was recently admitted to [facility] (See hospital discharge summary below) Thankfully, she is more herself and recognizes me instantly She denies new cardiovascular symptoms; specifically, she denies chest pain, shortness of breath, orthopnea, paroxysmal external dyspnea or lower extremity edema. Hospital course: Kiara Blanc is an 68 y.o. female who came from [facility] for NSTEMI. Patient was admittied initailly at [facility] with known history of CAD, HLD, [...] Disp: , Rfl: meto (more content not included)...[facility]08-14-2023 NotePhysical Therapy Physical Therapy Treatment Patient Name: Kiara Blanc : 1955 Today's Date: 05/06/2023 Patient Active Problem List Diagnosis Coronary artery disease involving mesa grande coronary artery of mesa grande heart without angina pectoris Hyperlipidemia, mixed Edema of lower extremity Chronic diastolic heart failure (CMS/HCC) Tobacco dependence NSTEMI (non-ST elevated myocardial infarction) (CMS/HCC) Acute cystitis without hematuria Hypoglycemia Traumatic rhabdomyolysis (CMS/HCC) Acute on chronic systolic (congestive) heart failure ([facility]) Time : 13:09-13:48 05/06/23 1350 PT Last Visit PT Received On 05/06/23 General Subjective Pt per nursing can be seen for P.T. services per nursing staff , upon marketing underwriter entering the room pt was sidelying in the bed with her brief half off pt was awake and marketing underwriter asked pt about getting out of bed and to go to the bathroom to check her brief. Pt willing to get up and work with therapy Cognition Overall Cognitive Status Impaired Arousal/Alertness Delayed responses to stimuli;Inconsistent responses to stimuli Orientation Level Disoriented to time;Disoriented to situation;Disoriented to place (pt looking for her dog again today marketing underwriter had to explain to pt that she is not at home and her dog is at home with her . Pt could no longer use the phone today and did not even hold it the right way up to her ear) Awareness of Errors Decreased awareness of errors Problem Solving Assistance required to implement solutions Cognition Comments pts told marketing underwriter in the past that pt has dementia. [...] light in place Plan PT Discharge Recommendations penitentiary facility placement Goals: Multi-Disciplinary Problems (from Physical [...] a railing 1 Mobility 6 Clicks T-Score 15[facility]08-14-2023 Note Discharge order placed. AVS uploaded to [place] [employer]. Transport set up with [facility] at 4PM. Transport form and packet completed and left bedside the chart. Facility and floor RN aware of transport time. Phone number for report left with packet. No further OTM needs at this time.[facility] 05-06-2023 NoteHospital Medicine Discharge Summary Final Discharge Diagnosis: NSTEMI (non-ST elevated myocardial infarction) ([facility]) Admission Diagnosis: NSTEMI (non-ST elevated myocardial infarction) ([facility]) [I21.4] Hospital course: Kiara Blanc is an 68 y.o. female who came from [facility] for NSTEMI. Patient was admittied initailly at [facility] with known history of CAD, HLD, [...] Center 06/05/2023 9:00 AM Fany Sahu NP [facility] [address] Your medication list START taking these medications [...] capsule Commonly known a (more content not included)...[facility]08-14-2023 NoteThis report has been cancelled.[facility]08-14-2023 Note Attestation signed by Luis Alvarez DO at 05/06/2023 1:32 PM Agree with above. No behavioral complaints over the weekend. Recommend following PT/Ot's recommendations regarding placement. Psychiatry Service Progress Note Identifying Data Patient Name: Kiara Blanc MRN / CSN: [id number] Date of / Age: 6 1955 / 68 y.o. / female Encounter Date: 05/06/23 Diagnosis: The primary encounter diagnosis was NSTEMI (non-ST elevated myocardial infarction) (CMS/HCC). A diagnosis of Acute on chronic systolic (congestive) heart failure (CMS/HCC) was also pertinent to this visit. Summary Kiara Blanc is a 68 y.o. female who presented on 04/26/2023 to [facility] from [facility] ([facility]) for acute NSTEMI. Psychiatry was consulted on 04/29/2023 for dementia and delirium. Medical Course: Patient is a 68-year-old female with an unknown psychiatric history and medical history of CAD, HLD, CAD, chronic diastolic HF w/ NYHA Class II, diabetes mellitus presented to [facility] as a direct transfer for cardiology service evaluation for acute NSTEMI. She was admitted initially at [facility] ([facility]) on 04/25/2023 after she was found [...] over 1000. She was subsequently transferred to [facility] for cardiac evaluation. She was started on [...] talk to , Mr. Cameron Blanc (ph: [phone]) at the patient's bedside. He called EMS [...] Social work has put in referrals to [facility] 1st choice; [facility] 2nd choice as well as alternate choices had no preference of order: [place], [facility]; [facility]; [facility] and [facility]. Awaiting their review. 05/03/23 - start [...] Initially sleeping, but up (more content not included)...[facility]08-13-2023 Note Hospital Medicine Daily Progress Note - 05/05/2023 10:49 AM; Room: [facility]313[facility] Admission: 04/26/2023 1:50 PM; Length of stay: 9 days THE HOSPITALIST TEAM PREFERS TO USE [employer] CHAT FOR COMMUNICATION 7AM-7PM. IF I DO NOT RESPOND WITHIN 15 MINUTES, PLEASE PAGE ME/CALL THROUGH THE EXTENSION SERVICE SUPERVISOR. FROM 7PM-7AM, PLEASE PAGE [phone](COVR) Code Status: Full Code Discharge Destination: senior living facility Discharge planning: Pending SNF Overview Patient [...] Principal Problem: NSTEMI (non-ST elevated myocardial infarction) ([facility]) Active Problems: Acute cystitis without hematuria Hypoglycemia Traumatic rhabdomyolysis ([facility]) Acute on chronic systolic (congestive) heart failure ([facility]) Assessment and Plan # NSTEMI: # Chronic [...] 51 04/26/2023 Lab Results Component Value Date [id number] 04/29/2023 Imaging ECG 12 lead Sinus tachycardia Septal infarct , age undetermined T wave abnormality, consider lateral ischemia Abnormal ECG Confirmed by MD KERA, EHAB ([id number]) on 05/04/2023 11:50:40 AM Discharge Planning Discharge Planning Living Arrangements: Spouse/significant other Support Systems: Spouse/significant other Type of Residence/Post Acute Needs: [facility] facility Will patient need Precert for Post Acute needs?: Yes Patient's goal for discharge: per patient should go to rehab and maybe termite control representative care. Does the patient need discharge transport arranged?: Yes Has discharge transport been arranged?: No PT Discharge Recommendations: penitentiary facility placement OT Discharge Recomm (more content not included)...[facility]08-13-2023 NoteCountryside working on the insurance precert.[facility]08-12-2023 NotePhysical Therapy Physical Therapy Treatment Patient Name: Kiara Blanc : 1955 Today's Date: 05/04/2023 Patient Active Problem List Diagnosis Coronary artery disease involving mesa grande coronary artery of mesa grande heart without angina pectoris Hyperlipidemia, mixed Edema [...] seen for P.T. treatment session , upon marketing underwriter entering the room pt was supine in [...] across midline (reaching down to floor to knot picker cloth cones off the floor) Dynamic Standing Balance-Level [...] sitting down. Other Activity Other Activity 2 Tube Room Supervisor left pt in bedside chair with her chair alarm on , marketing underwriter informed nursing that pt's chair alarm is not working well when engaged and doing the test to make sure it goes off . Call light within reach of pt Plan PT Discharge Recommendations penitentiary facility placement Goals: Multi-Disciplinary Problems (from Physical [...] without using bedrails 3 (more content not included)...[facility]08-12-2023 Note Still no decision from husbands top 2 SNF choices. Met with at bedside and advised him of 2 accepting SNF's. chose [place]. Sent updates and asked them to start precert. Provided w/ [facility] info. [facility]08-12-2023 Note Attestation signed by Gaby Sanchez [...] fraction. She is to follow-up with the [place] cardiology office in [place]. Gaby Sanchez MD, MPH, [facility], [facility], [facility] Interventional Cardiology Pager Email: [email or web address] Subjective The patient was seen and [...] Value Ventricular Rate 83 Atrial Rate 83 VA Interval 178 QRS DURATION 88 QT Interval 414 QTC CALCULATION(BAZETT) 486 P Gilliam 64 R-Gilliam -19 T Wave Gilliam 152 Impression Sinus rhythm with occasional Premature [...] The right ventricle a (more content not included)...[facility]08-12-2023 NoteHospital Medicine Daily Progress Note - 05/04/2023 11:00 AM; Room: [id number] Admission: 04/26/2023 1:50 PM; Length of stay: 8 days THE HOSPITALIST TEAM PREFERS TO USE [employer] CHAT FOR COMMUNICATION 7AM-7PM. IF I DO NOT RESPOND WITHIN 15 MINUTES, PLEASE PAGE ME/CALL THROUGH THE EXTENSION SERVICE SUPERVISOR. FROM 7PM-7AM, PLEASE PAGE [phone](COVR) Code Status: Full Code Discharge Destination: senior living facility Discharge planning: Pending SNF Overview Patient [...] Principal Problem: NSTEMI (non-ST elevated myocardial infarction) ([facility]) Active Problems: Acute cystitis without hematuria Hypoglycemia Traumatic rhabdomyolysis ([facility]) Acute on chronic systolic (congestive) heart failure ([facility]) Assessment and Plan # NSTEMI: # Chronic [...] 51 04/26/2023 Lab Results Component Value Date [id number] 512 04/29/2023 Imaging XR hip left 2 [...] 2. Osteoarthritis left hip. (more content not included)...[facility]08-12-2023 NoteOccupational Therapy Occupational Therapy Treatment Note Patient Name: Kiara Blanc Patient Date of : 1955 Today's Date: 05/04/23 Time in: 1034 Time Out: 1108 Total Time: 34 Active Ambulatory Problems Diagnosis Date Noted Coronary artery disease involving mesa grande coronary artery of mesa grande heart without angina pectoris 07/18/2022 Hyperlipidemia, mixed [...] impaired Sequencing impaired Problem Solving impaired Other Tube Room Supervisor questions further cognitive issues has pt had issues locating the bathroom, the sink and forgot were to put garbage. At [facility] marketing underwriter placed multiple grooming items in front of pt and asked her to point to each item as marketing underwriter named it. Pt only pointed to the [...] to change brief. Pt required assist to ice puller hips even after given verbal cues Toileting: [...] With hands on for safety and with marketing underwriter guiding walker as pt was unable to follow instructions To toilet: Minimal Assist , Rolling Walker Comments: With hands on for safety and with marketing underwriter guiding walker as pt was unable to follow instructions/locate bathroom Functional Ambulation: Pt ambulated in room with use of walker with hands on for safety and with marketing underwriter to guide walker as pt had difficulty locating bathroom and sink even with verbal cues and marketing underwriter pointing in the direction. Tone: All extremities [...] Expected End Date E (more content not included)...[facility] need [facility] questionnaire filled out by . Item Processing Clerk (SW) gave 's contact information, [facility] left voicemail. SW informed that they are unable to fully approve or begin precert without questionnaire being completed. [facility] informed SW that they are out of network, but are able to accept if patient has 5 denied facilities. KAREEM informed then that there are not 5 denied facilities. [facility] still reviewing. [facility] requested additional notes from patient's stay, Sw sent via [email or web address] [facility] requested to reach out to Shani [phone] pertaining to questions over the weekend. OTM will continue to follow.[facility]08-11-2023 Note Hospital Medicine Daily Progress Note - 05/03/2023 12:09 PM; Room: [address] [place] [address] Admission: 04/26/2023 1:50 PM; Length of stay: 7 days THE HOSPITALIST TEAM PREFERS TO USE U-NOTE FOR COMMUNICATION 7AM-7PM. IF I DO NOT RESPOND WITHIN 15 MINUTES, PLEASE PAGE ME/CALL THROUGH THE EXTENSION SERVICE SUPERVISOR. FROM 7PM-7AM, PLEASE PAGE [phone](COVR) Code Status: Full Code Discharge Destination: senior living facility Discharge planning: Cath today Overview Patient [...] Acute on chronic systolic (congestive) heart failure ([facility]) Assessment and Plan # NSTEMI: # Chronic [...] 51 04/26/2023 Lab Results Component Value Date [id number] 512 04/29/2023 Imaging XR hip left 2 [...] No fracture nor dislo (more content not included)...[facility]08-11-2023 NotePhysical Therapy: Refusal of services note Wednesday May 03, 2023 Pt had been cleared medically to receive therapy services . Upon entering the room pt was yelling into her phone and out into hallway that she needed something to drink , when marketing underwriter entered the room marketing underwriter checked for pt on getting her something to drink with her nurse. Jenn informed marketing underwriter that pt was NPO to prepare for a test today heart cath. When marketing underwriter told pt why she could not have any water because of the testing pt became very upset and refused to partipate in therapy services . Tube Room Supervisor wished pt the best of luck on her procedure today and made sure bed was in lowest position, and bed alarm on and that pt had her call light . Attempted time : 10:08-10:13am[facility]08[facility] Note Attestation signed by Luis Alvarez DO at 05/03/2023 3:17 PM Agree; zyprexa on standby for agitation/irritability/psychosis. Psychiatry Service Progress Note Identifying Data Patient Name: Kiara Blanc MRN / CSN: [id number] Date of / Age: 6 1955 / 68 y.o. / female Encounter Date: 05/03/23 Diagnosis: The primary encounter diagnosis was NSTEMI (non-ST elevated myocardial infarction) (CMS/HCC). A diagnosis of Acute on chronic systolic (congestive) heart failure (CMS/HCC) was also pertinent to this visit. Summary Kiara Blanc is a 68 y.o. female who presented on 04/26/2023 to [facility] from [facility] ([facility]) for acute NSTEMI. Psychiatry was consulted on 04/29/2023 for dementia and delirium. Medical Course: Patient is a 68-year-old female with an unknown psychiatric history and medical history of CAD, HLD, CAD, chronic diastolic HF w/ NYHA Class II, diabetes mellitus presented to [facility] as a direct transfer for cardiology service evaluation for acute NSTEMI. She was admitted initially at [facility]) on 04/25/2023 after she was found [...] over 1000. She was subsequently transferred to [facility] for cardiac evaluation. She was started on [...] talk to , Mr. Cameron Blanc (ph: [phone]) at the patient's bedside. He called EMS [...] Social work has put in referrals to [address]; [facility]' 2nd choice as well as alternate choices had no preference of order: [facility]; [facility]; [facility] and [facility]. Awaiting their review. 05/03/23 - [...] overnight. Unable to f (more content not included)...[facility]08-10-2023 Note Per RN patient is doing better today and is out of mitts and any form of restraints. Patient has not pulled at any of her leads or lines today. Per RN and MOLD STAMPER advised them that he did remember now that a physician had given her a dx of dementia at some point. At request of the team they feel patient could be medically ready soon. Referrals made to [address]; [facility]' 2nd choice as well as alternate choices had no preference of order: [facility]; [facility]; [facility] and [facility]. Awaiting their review.[facility]08-10-2023 NotePhysical Therapy Physical Therapy Treatment Patient Name: Kiara Blanc : 1955 Today's Date: 05/02/2023 Patient Active Problem List Diagnosis Coronary artery disease involving mesa grande coronary artery of mesa grande heart without angina pectoris Hyperlipidemia, mixed Edema of lower extremity Chronic diastolic heart failure (CMS/HCC) Tobacco dependence NSTEMI (non-ST elevated myocardial infarction) ([facility]/HCC) Acute cystitis without hematuria Hypoglycemia Traumatic rhabdomyolysis [...] them clean her up earlier , when marketing underwriter entered the room pt was R sidelying and had a soiled brief that was half off her , marketing underwriter told pt she had to get cleaned up and could not sit in her BM , pt willing to get cleaned up pt kept telling marketing underwriter there are holes in the bathroom and was wondering again where her dog was . Cognition Orientation Level Disoriented to time;Disoriented to situation;Disoriented to place (pts came in at end of treatment session and informed marketing underwriter that pt was diagnosed by some doctor he did not remember what doctor or when with dementia. Pt thought her turkey sandwich today tasted and was niuean food) Static Sitting Balance Static Sitting-Balance Support [...] her lunch . Plan PT Discharge Recommendations penitentiary facility placement Goals: Multi-Disciplinary Problems (from Physical [...] a railing 1 Mobility 6 Clicks T-Score 16[facility]08-[facility] Note Physical Therapy Physical Therapy Treatment Patient Name: Kiara Blanc : 1955 Today's Date: 05/02/2023 Patient Active Problem List Diagnosis Coronary artery disease involving mesa grande coronary artery of mesa grande heart without angina pectoris Hyperlipidemia, mixed Edema of lower extremity Chronic diastolic heart failure (CMS/HCC) Tobacco dependence NSTEMI (non-ST elevated myocardial infarction) ([facility]/HCC) Acute cystitis without hematuria Hypoglycemia Traumatic rhabdomyolysis [...] them clean her up earlier , when marketing underwriter entered the room pt was R sidelying and had a soiled brief that was half off her , marketing underwriter told pt she had to get cleaned up and could not sit in her BM , pt willing to get cleaned up pt kept telling marketing underwriter there are holes in the bathroom and was wondering again where her dog was . Cognition Orientation Level Disoriented to time;Disoriented to situation;Disoriented to place (pts came in at end of treatment session and informed marketing underwriter that pt was diagnosed by some doctor he did not remember what doctor or when with dementia. Pt thought her turkey sandwich today tasted and was niuean food) Static Sitting Balance Static Sitting-Balance Support [...] her lunch . Plan PT Discharge Recommendations penitentiary facility placement Goals: Multi-Disciplinary Problems (from Physical [...] a railing 1 Mobility 6 Clicks T-Score 16[facility]08-10-2023 Note Hospital Medicine Daily Progress Note - 05/02/2023 12:19 PM; Room: [address] [place] [address] Admission: 04/26/2023 1:50 PM; Length of stay: 6 days THE HOSPITALIST TEAM PREFERS TO USE [employer] CHAT FOR COMMUNICATION 7AM-7PM. IF I DO NOT RESPOND WITHIN 15 MINUTES, PLEASE PAGE ME/CALL THROUGH THE EXTENSION SERVICE SUPERVISOR. FROM 7PM-7AM, PLEASE PAGE [phone](COVR) Code Status: Full Code Discharge Destination: senior living facility Discharge planning: Pending SNF placement Overview [...] Principal Problem: NSTEMI (non-ST elevated myocardial infarction) ([facility]) Active Problems: Acute cystitis without hematuria Hypoglycemia Traumatic rhabdomyolysis ([facility]) Acute on chronic systolic (congestive) heart failure ([facility]) Assessment and Plan # NSTEMI: # Chronic [...] 51 04/26/2023 Lab Results Component Value Date [id number] 512 04/29/2023 Imaging XR hip left 2 [...] lesion is id (more content not included)... [facility]08-10-2023 NoteClinical Nutrition Assessment Name: Kiara Blanc [...] meals and improve glucose control George Link, ABDELRAHMANUnUniversity [facility]08-10-2023 NotePhysical Therapy Cancellation of services for am April Pt per nursing can be seen for physical therapy services , upon marketing underwriter entering pt's room pt was supine in the bed eating her breakfast with HOB elevated to 40 degrees . Pt was asking where her dog was marketing underwriter explained to pt that she was in a hospital and her dog was at home . Pt said OH she thought her dog was around here referring to the hospital . Pt was also doing gross grasp movements when holding her silverware eating her breakfast , pt stated her low back hurt and pt is willing to work with marketing underwriter after she finishes her breakfast. Attempted time: 09:58-10:05UnUniversity [facility]als [facility]08-10-2023 Note Attestation signed by Luis [...] be placed in a SNF and subsequent residential post hospital discharge. Regardless of psychiatric diagnosis, [...] Patient Name: Kiara Blanc MRN / CSN: [id number] Date of / Age: 6 1955 / y.o. / female Encounter Date: 05/02/23 Diagnosis: The primary encounter diagnosis was NSTEMI (non-ST elevated myocardial infarction) (CMS/HCC). A diagnosis of Acute on chronic systolic (congestive) heart failure (CMS/HCC) was also pertinent to this visit. Summary Kiara Blanc is a 68 y.o. female who presented on 04/26/2023 to [facility] from [facility] ([facility]) for acute NSTEMI. Psychiatry was consulted on 04/29/2023 for dementia and delirium. Medical Course: Patient is a 68-year-old female with an unknown psychiatric history and medical history of CAD, HLD, CAD, chronic diastolic HF w/ NYHA Class II, diabetes mellitus presented to [facility] as a direct transfer for cardiology service evaluation for acute NSTEMI. She was admitted initially at [facility] ([facility]) on 04/25/2023 after she was found [...] over 1000. She was subsequently transferred to [facility] for cardiac evaluation. She was started on [...] talk to , Mr. Cameron Blanc (ph: [phone]) at the patient's bedside. He called EMS when he found her after coming back from work. He mentions she frequently falls at home and has been hospitalized many times. Per , she refuses to use walker desp (more content not included)...[facility]08-09-2023 Note Attestation signed by Fercho Le MD at 05/01/2023 5:55 PM I personally saw and examined the patient on the same date of service as resident/fellow Tamera Cervantes. I discussed the findings and therapeutic plan with the resident/fellow Tamera Cervantes. I agree with the documentation, except for any edits/updates below. Teaching Physician's Revisions: I have discussed her situation with her primary exchange operator Dr. Gaby Sanchez. We were planning [...] Value Ventricular Rate 83 Atrial Rate 83 VA Interval 178 QRS DURATION 88 QT Interval 414 QTC CALCULATION(BAZETT) 486 P Gilliam 64 R-Gilliam -19 T Wave Gilliam 152 Impression Sinus rhythm with occasional Premature [...] of measurable tricuspid regurgit (more content not included)...[facility]08-09-2023 Note05/01/23 1620 Admission Assessment Questions Verify insurance with patient Yes ([place] Medicare Advantage) Patient is not willing to answer Admission Assessment Questions at this time. Tube Room Supervisor asked if I could call her and she said no . OTM to follow. [facility]08-09-2023 NotePhysical Therapy Physical Therapy Treatment Patient Name: Kiara Blanc : 1955 Today's Date: 05/01/2023 Patient Active Problem List Diagnosis Coronary artery disease involving mesa grande coronary artery of mesa grande heart without angina pectoris Hyperlipidemia, mixed Edema [...] Cognitive Status Impaired (pt unable to tell marketing underwriter what she used to do for a [...] , SAQ 10 reps 1 set . Tube Room Supervisor did a static stretch with pt's [...] Transfer Level of Assistance (more content not included)...[facility]08-09-2023 Note05/01/23 1513 Referral Data Referral Source [...] Spouse/significant other Type of Residence/Post Acute Needs penitentiary facility Will patient need Precert for Post Acute needs? Yes Patient's goal for discharge per patient should go to rehab and maybe custodial care. Does the patient need discharge transport arranged? Yes Has discharge transport been arranged? No Discharge Referral Plan and Patient Instructions: [employer] [facility] ([facility] involved Adithya San [facility] [phone] ext [phone] or [phone]) KAREEM attempted to meet with patient. She was [...] and doesn't do anything. SW spoke with [facility] Adithya San [phone] ext [phone]. (that visited with patient yesterday). They report that patients home is a hoarding home. They report it is in deplorable condition with mold. They cannot force the patient to go to rehab or custodial care unless someone determines that patient does not have capacity to make her own decisions. They have offered to to assist and pay for clean up of the home. has evaded the offers and continually changes the subject when they offer. would like patient to go to rehab or termite renewal inspector care. He states he is agreeable to referrals to [facility] or [facility]. If these providers do not have available bed or unable to meet needs he is ok with referrals to: [facility], [facility], [facility], [facility] in [place] or [facility] in no particular order. SW will hold off on referrals today due to patients behaviors and her need for restraints. It does not appear that patient has any custodial coverage for residential if needed. SW referred to [facility] for determination if patient would qualify for Medicaid as secondary. SW to follow.[facility] 05-01-2023 NoteHospital Medicine Daily Progress Note - 05/01/2023 12:22 PM; Room: [facility]- Admission: 04/26/2023 1:50 PM; Length of stay: 5 days THE HOSPITALIST TEAM PREFERS TO USE EP[employer] CHAT FOR COMMUNICATION 7AM-7PM. IF I DO NOT RESPOND WITHIN 15 MINUTES, PLEASE PAGE ME/CALL THROUGH THE EXTENSION SERVICE SUPERVISOR. FROM 7PM-7AM, PLEASE PAGE [phone](COVR) Code Status: Full Code Discharge Destination: senior living facility Discharge planning: Cath today Overview Patient [...] Acute cystitis without hematuria Hypoglycemia Traumatic rhabdomyolysis ([facility]/HCC) Acute on chronic systolic (congestive) heart failure ([facility]/HCC) Assessment and Plan # NSTEMI: # Chronic [...] 51 04/26/2023 Lab Results Component Value Date [id number] 512 04/29/2023 Imaging Complete Echo (TTE) w/wo Imaging Agent, Strain, 3D, Bubble Study 1 [facility] Heart Station [address] [place] [address] [phone] (fax) Echocardiogram-[facility] Name: KIARA BLANC Study Date: 04/26/2023 03:54 PM B/P: 129 mmHg/77 mmHg HR: Date of : 1955 Location: [facility] Height: 66 in. Age: 68 year(s) Patient Room: [facility] Weight: 203 lb. Gender: Female Patient Status: InPt BSA: 2.01 m2 Indication: Chest Pain Examination: Echocardiogram (Complete), Lumason Contrast Image Quality: Technically difficult study the patient was uncooperative Patient Consent: Procedure explained to patient Conclusions Left Ventricle: The left ventricle appears normal (more content not included)...[facility]08-09-2023 NoteOccupational Therapy Occupational Therapy Treatment Note Patient Name: Kiara Blanc Patient Date of : 1955 Today's Date: 05/01/23 Time in: 0928 Time Out: 1037 Total Time: 69 Active Ambulatory Problems Diagnosis Date Noted Coronary artery disease involving mesa grande coronary artery of mesa grande heart without angina pectoris 07/18/2022 Hyperlipidemia, mixed [...] was still looking for her dog after marketing underwriter oriented pt. Objective 1 Pt was returned to bed at [facility] due to pt fidgeting in chair and being impulsive. Objective 2 Upon arrival pts bedding was saturated with urine (pt had pulled out Purewick), marketing underwriter notes skin was on buttocks was red (nursing notified) pt also c/o pain in L hip throughout session, during rolling activity and when bringing legs into and out of bed. Tube Room Supervisor notified nursing as pt was found [...] -up Where Assessed: from chair, None Comments: Tube Room Supervisor set up wash clothe and cued pt to wash areas of body LB Bathing Level of Assistance: Moderate assist Where Assessed: Supine (HOB raised) , from chair, None Comments: Rita care completed by marketing underwriter while supine, pt sat in chair to [...] body with minimal assistance (more content not included)...[facility]08-09-2023 Note Attestation signed by Luis Alvarez [...] Patient Name: Kiara Blanc MRN / CSN: [id number] Date of / Age: 6 1955 / 68 y.o. / female Encounter Date: 05/01/23 Diagnosis: The primary encounter diagnosis was NSTEMI (non-ST elevated myocardial infarction) (CMS/[facility]). A diagnosis of Acute on chronic systolic (congestive) heart failure (CMS/[facility]) was also pertinent to this visit. Summary Kiara Blanc is a 68 y.o. female who presented on 04/26/2023 to [facility] from [facility] ([facility]) for acute NSTEMI. Psychiatry was consulted on 04/29/2023 for dementia and delirium. Medical Course: Patient is a 68-year-old female with an unknown psychiatric history and medical history of CAD, HLD, CAD, chronic diastolic HF w/ NYHA Class II, diabetes mellitus presented to [facility] as a direct transfer for cardiology service evaluation for acute NSTEMI. She was admitted initially at [facility] ([facility]) on 04/25/2023 after she was found [...] over 1000. She was subsequently transferred to [facility] for cardiac evaluation. She was started on [...] the past. Able to talk to , . Cameron Blanc (ph: [phone]) at the patient's bedside. He called EMS [...] seen or talked (more content not included)... [facility]08-08-2023 NoteSW given information from RN provided by [facility]. Case Workers Leanna Umang [phone] ext [phone] and Adithya San [phone] ext [phone]. They provided a release of information for [facility] to communicate with APS. Copy of release in paper chart. Due to being after hours social service agency director will call in the am. No family at bedside. SW advised patient is not oriented and will need SNF. SW to follow [facility]08-08-2023 NotePhysical Therapy Physical Therapy Treatment Patient Name: Kiara Blanc : 1955 Today's Date: 04/30/2023 Patient Active Problem List Diagnosis Coronary artery disease involving mesa grande coronary artery of mesa grande heart without angina pectoris Hyperlipidemia, mixed Edema of lower extremity Chronic diastolic heart failure (CMS/HCC) Tobacco dependence NSTEMI (non-ST elevated myocardial infarction) (CMS/HCC) Acute cystitis without hematuria Hypoglycemia Traumatic rhabdomyolysis ([facility]) Time : 11:04-11:45 04/30/23 1556 PT Last Visit PT Received On 04/30/23 General Subjective Pt had been cleared medically by nursing staff to receive therapy services , nursing informed marketing underwriter that pt was refusing all services this morning including her am medications. Upon marketing underwriter entering the room pt was L sidelying in the bed with her food tray in bed with her , pt has 1 sand mitt on and while nursing in the room pt took off other sand mitt. Tube Room Supervisor able to talk pt into working [...] bedside chair with chair alarm on , marketing underwriter promised to come back a couple of hours to get pt back to bed and see how she was transferring pt in agreeable to do this . Plan Level of assist 1 assist PT Discharge Recommendations penitentiary facility placement Goals: Multi-Disciplinary Problems (from Physical Therapy) Active Problems Problem: [facility] Start Date: 04/29/23 Goal Start Date Expected [...] from another person standi (more content not included)...[facility]08-08-2023 NoteHospital Medicine Daily Progress Note - 04/30/2023 1:14 PM; Room: [address] [place] [address] Admission: 04/26/2023 1:50 PM; Length of stay: 4 days THE HOSPITALIST TEAM PREFERS TO USE U-NOTE FOR COMMUNICATION 7AM-7PM. IF I DO NOT RESPOND WITHIN 15 MINUTES, PLEASE PAGE ME/CALL THROUGH THE EXTENSION SERVICE SUPERVISOR. FROM 7PM-7AM, PLEASE PAGE [phone](COVR) Code Status: Full Code Discharge Destination: senior living facility Discharge planning: Pending placement Overview Patient [...] Principal Problem: NSTEMI (non-ST elevated myocardial infarction) ([facility]) Active Problems: Acute cystitis without hematuria Hypoglycemia Traumatic rhabdomyolysis ([facility]) Assessment and Plan # NSTEMI: # Chronic [...] 51 04/26/2023 Lab Results Component Value Date [id number] 04/29/2023 Imaging Complete Echo (TTE) w/wo Imaging Agent, Strain, 3D, Bubble Study 1 1 [facility] Heart Station [address] [place] [address] [phone] (fax) Echocardiogram-[facility] Name: KIARA BLANC Study Date: 04/26/2023 03:54 PM B/P: 129 mmHg/77 mmHg HR: Date of : 1955 Location: [facility] Height: 66 in. Age: 68 year(s) Patient Room: 3131 Weight: 203 lb. Gender: Female Patient Status: InPt BSA: 2.01 m2 Indication: Chest Pain Examination: Echocardiogram (Complete), Lumason Contrast Image Quality: Technically difficult study the patient was uncooperative Patient Consent: Procedure explained to patient Conclusions Left Ventricle: The left ventricle appe (more content not included)...[facility] 04-30-2023 NotePhysical Therapy Physical Therapy Treatment Patient Name: Kiara Blanc : 1955 Today's Date: 04/30/2023 Patient Active Problem List Diagnosis Coronary artery disease involving mesa grande coronary artery of mesa grande heart without angina pectoris Hyperlipidemia, mixed Edema of lower extremity Chronic diastolic heart failure (CMS/HCC) Tobacco dependence NSTEMI (non-ST elevated myocardial infarction) ([facility]/H[facility]) Acute cystitis without hematuria Hypoglycemia Traumatic rhabdomyolysis ([facility]/HCC) Time : 12:30-13:00pm 04/30/23 1305 PT Last Visit PT Received On 04/30/23 General Subjective Tube Room Supervisor had come back to put pt back to bed after she had been up for a while, upon marketing underwriter entering the room pt was sitting in [...] ,Chair alarm on Plan PT Discharge Recommendations [facility] facility placement Goals: Multi-Disciplinary Problems (from Physical [...] and limit effects of immobility 04/29/23 05/13/23 --[facility]08-08-2023 Note Attestation signed by Fercho Le [...] Value Ventricular Rate 83 Atrial Rate 83 VA Interval 178 QRS DURATION 88 QT Interval 414 QTC CALCULATION(BAZETT) 486 P Gilliam 64 R-Gilliam -19 T Wave Gilliam 152 Impression Sinus rhythm with occasional Premature [...] graft to the OM-2, (more content not included)...[facility] 04-30-2023 NoteSubjective Patient did not sleep [...] Value Ventricular Rate 83 Atrial Rate 83 VA Interval 178 QRS DURATION 88 QT Interval 414 QTC CALCULATION(BAZETT) 486 P Gilliam 64 R-Gilliam -19 T Wave Gilliam 152 Impression Sinus rhythm with occasional Premature [...] graft. Assessment/Plan NSTEMI (non-ST elevated myocardial infarction) (CMS/HCC) CAD s/p CABG x4 (PARKER-LAD, L radial-OM 1, SVG-OM2, SVG-PDA) in 05/07/2017 HFrEF, 30%, newly reduced, unable to reliably assess NYHA at this point, diabetes mellitus Hypoglycemia Rhabdomyolysis AMS HLD Tobacco use Acute cystitis without hematuria Traumatic rhab (more content not included)...[facility] 04-29-2023 NoteHospital Medicine Daily Progress Note - 04/29/2023 3:04 PM; Room: [facility]/3131- Admission: 04/26/2023 1:50 PM; Length of stay: 3 days THE HOSPITALIST TEAM PREFERS TO USE [employer] CHAT FOR COMMUNICATION 7AM-7PM. IF I DO NOT RESPOND WITHIN 15 MINUTES, PLEASE PAGE ME/CALL THROUGH THE EXTENSION SERVICE SUPERVISOR. FROM 7PM-7AM, PLEASE PAGE [phone](COVR) Code Status: Full Code Discharge Destination: senior living facility Discharge planning: Pending psych eval Overview [...] Principal Problem: NSTEMI (non-ST elevated myocardial infarction) ([facility]) Active Problems: Acute cystitis without hematuria Hypoglycemia Traumatic rhabdomyolysis ([facility]) Assessment and Plan # NSTEMI: # New [...] 51 04/26/2023 Lab Results Component Value Date [id number] 04/29/2023 Imaging Complete Echo (TTE) w/wo Imaging Agent, Strain, 3D, Bubble Study 1 1 [facility] Heart Station [address] [place] [address] [phone] (fax) Echocardiogram-[facility] Name: KIARA BLANC Study Date: 04/26/2023 03:54 PM B/P: 129 mmHg/77 mmHg HR: Date of : 1955 Location: [facility] Height: 66 in. Age: 68 year(s) Patient Room: 313 Weight: 203 lb. Gender: Female Patient Status: InPt BSA: 2.01 m2 Indication: Chest Pain Examination: Echocardiogram (Complete), Lumason Contrast Image Quality: Technically difficult study the patient was uncooperative Patient Consent: Procedure explained to patient Conclusions Left Ventricle: The left ventricle appears normal in size. Global left ventricular systolic function is sever (more content not included)...[facility]08-07-2023 NotePhysical Therapy Physical Therapy Evaluation Patient Name: Kiara Blanc : 1955 Today's Date: 04/29/2023 Patient is a 68 y/o female who presented to [facility] 04/26/2023 from [facility] for cardiology evaluation. Presented [...] Problem List Diagnosis Coronary artery disease involving mesa grande coronary artery of mesa grande heart without angina pectoris Hyperlipidemia, mixed Edema [...] is a 68 y/o (more content not included)...[facility]08-07-2023 Note Attestation signed by Fercho Le [...] Value Ventricular Rate 83 Atrial Rate 83 VA Interval 178 QRS DURATION 88 QT Interval 414 QTC CALCULATION(BAZETT) 486 P Gilliam 64 R-Gilliam -19 T Wave Gilliam 152 Impression Sinus rhythm with occasional Premature [...] 05/07/2017 PROCEDURES PERFORMED: Coronar (more content not included)...[facility]08-07-2023 NoteOccupational Therapy Occupational Therapy Evaluation Patient Name: Kiara Blanc : 1955 Today's Date: 04/29/2023 Time In: 1051 Time Out: 1106 History of Present Illness Kiara Blanc is an 68 y.o. female who came from [facility] for NSTEMI. [facility] with known history of CAD, HLD, [...] Problem List Diagnosis Coronary artery disease involving mesa grande coronary artery of mesa grande heart without angina pectoris Hyperlipidemia, mixed Edema of lower extremity Chronic diastolic heart failure ([facility]/HCC) Tobacco dependence NSTEMI (non-ST elevated myocardial infarction) ([facility]) Acute cystitis without hematuria Hypoglycemia Traumatic rhabdomyolysis ([facility]) History reviewed. No pertinent past medical history. [...] Level of Function Prior Function Level of [place]: (unknown , based on body habitus likely [...] (Total Assist) Total Score (more content not included)...[facility] 04-28-2023 Note Attestation signed by Fercho [...] Value Ventricular Rate 83 Atrial Rate 83 VA Interval 178 QRS DURATION 88 QT Interval 414 QTC CALCULATION(BAZETT) 486 P Gilliam 64 R-Gilliam -19 T Wave Gilliam 152 Impression Sinus rhythm with occasional Premature ventricular complexes Septal infarct , age undetermined Prolonged QT interval Abnormal ECG When compared with ECG of 16-MAR-2022 12:13, Premature ventricular complexes are now Present T wave inversion no longer evident in Anterolateral leads QT has lengthened Confirmed by Marilyn MARTINEZ., L.S. (2) on 04/26/2023 4:09:15 PM TTE [...] was administered for better (more content not included)...[facility]08-06-2023 Note Hospital Medicine Daily Progress Note - 04/28/2023 1:24 PM; Room: [facility]/3131-01 Admission: 04/26/2023 1:50 PM; Length of stay: 2 days THE HOSPITALIST TEAM PREFERS TO USE [employer] CHAT FOR COMMUNICATION 7AM-7PM. IF I DO NOT RESPOND WITHIN 15 MINUTES, PLEASE PAGE ME/CALL THROUGH THE EXTENSION SERVICE SUPERVISOR. FROM 7PM-7AM, PLEASE PAGE [phone](COVR) Code Status: Full Code Discharge Destination: TBD [...] 51 04/26/2023 Lab Results Component Value Date [id number] 436 2022 Imaging Complete Echo (TTE) w/wo Imaging Agent, Strain, 3D, Bubble Study 1 1 [facility] Heart Station [address] [place] [address] [phone] (fax) Echocardiogram-[facility] Name: KIARA BLANC Study Date: 04/26/2023 03:54 PM B/P: 129 mmHg/77 mmHg HR: Date of : 1955 Location: [facility] Height: 66 in. Age: 68 year(s) Patient Room: 3131 Weight: 203 lb. Gender: Female Patient Status: InPt BSA: 2.01 m2 Indication: Chest Pain Examination: Echocardiogram (Complete), Lumason Contrast Image Quality: Technically difficult study the patient was uncooperative Patient Consent: Procedure explained to patient Conclusions Left Ventricle: The left ventricle appears normal in size. Global left ventricular sy (more content not included)...[facility]08-05-2023 Note Attestation signed by Fercho Le [...] Value Ventricular Rate 83 Atrial Rate 83 VA Interval 178 QRS DURATION 88 QT Interval 414 QTC CALCULATION(BAZETT) 486 P Gilliam 64 R-Gilliam -19 T Wave Gilliam 152 Impression Sinus rhythm with occasional Premature [...] Ventricle: The right ventricle (more content not included)...[facility]08-05-2023 NoteHospital Medicine Daily Progress Note - 04/27/2023 1:18 PM; Room: 3131/3131-01 Admission: 04/26/2023 1:50 PM; Length of stay: 1 days THE HOSPITALIST TEAM PREFERS TO USE U-NOTE FOR COMMUNICATION 7AM-7PM. IF I DO NOT RESPOND WITHIN 15 MINUTES, PLEASE PAGE ME/CALL THROUGH THE EXTENSION SERVICE SUPERVISOR. FROM 7PM-7AM, PLEASE PAGE [phone](COVR) Code Status: Full Code Discharge Destination: TBD [...] Principal Problem: NSTEMI (non-ST elevated myocardial infarction) ([facility]) Active Problems: Acute cystitis without hematuria Hypoglycemia Traumatic rhabdomyolysis ([facility]) Assessment and Plan # NSTEMI: # Drop [...] 51 04/26/2023 Lab Results Component Value Date [id number] 436 2022 Imaging Complete Echo (TTE) w/wo Imaging Agent, Strain, 3D, Bubble Study 1 1 [facility] Heart Station [address] [place] [address] [phone] (fax) Echocardiogram-[facility] Name: KIARA BLANC Study Date: 04/26/2023 03:54 PM B/P: 129 mmHg/77 mmHg HR: Date of : 1955 Location: [facility] Height: 66 in. Age: 68 year(s) Patient [...] systolic function appears re (more content not included)...[facility] 04-27-2023 NoteEMS had called APS regarding the patient. Attempted to call [facility] to follow up but they are only open Mon-Fri 8am-4:30pm.[facility]08-05-2023 NoteOutput from [place] [facility]atheterUn[facility]08-04-2023 NoteHospital Medicine History and Physical 04/26/2023 2:36 PM THE HOSPITALIST TEAM PREFERS TO USE [employer] CHAT FOR COMMUNICATION 7AM-7PM. IF I DO NOT RESPOND WITHIN 15 MINUTES, PLEASE PAGE ME/CALL THROUGH THE EXTENSION SERVICE SUPERVISOR. FROM 7PM-7AM, PLEASE PAGE [phone](COVR) Chief Complaint NSTEMI History of Present Illness Kiara Blanc is an 68 y.o. female who came from [facility] for NSTEMI. Patient was admittied initailly at [facility] with known history of CAD, HLD, [...] Date Noted NSTEMI (non-ST elevated myocardial infarction) ([facility]) 04/26/2023 Acute cystitis without hematuria 04/26/2023 Hypoglycemia 04/26/2023 Traumatic rhabdomyolysis ([facility]) 04/26/2023 Coronary artery disease involving mesa grande coronary artery of mesa grande heart without angina pectoris 07/18/2022 Hyperlipidemia, mixed 07/18/2022 Edema of lower extremity 07/18/2022 Chronic diastolic heart failure ([facility]) 07/18/2022 Tobacco dependence 07/18/2022 Assessment and Plan NSTEMI-Type I versus some contribution by type II secondary to rhabdo. Continue to trend troponin curve, continue aspirin, Plavix, heparin drip. Add PPI for prophylaxis. Obtain surface echo. Discussed with flare worker. No plans for cath today and will [...] appropriate. Please see abov (more content not included)...[facility]06-19-2023 Hospital Discharge instructions* Discharge Instructions* Codi [...] Everywhere. * UTI (Urinary Tract Infection): [facility] ([place]) [facility] Includes: Assessments for all patient encounters Findings Encounter Date Anxiety disorder NOS Established Patient with Sobia Short LISWS 03/07/2023 Last Documented On 3 9:52PM ; [facility] Dependence on nicotine in ci garettes - uncomplicated Established Patient with Sobia Short LISWS 03/07/2023 Last Documented On 3 9:52PM ; [facility] Mild recurrent major depression Estab lished Patient with Sobia Short LISWS 03/07/2023 Last Documented On 3 9:52PM ; [facility] [Body mass index [BMI] 33.0- 33.9, adult] assessment of body mass index Medical New Patient with Sonya Carlo FUNDS TRANSFER CLERK 03/07/2023 Last Documented On 3 5:01PM ; [facility] Diabetes Risk Test Score was 7.0 score 03/07/2023 Medical New Patient with Sonya Carlo FUNDS TRANSFER CLERK 03/07/2023 Last Documented On 3 5:01PM ; [facility] Work Phone: 1(136) 949-736306-15-2023 Evaluation note Includes: Assessments for all patient encounters Findings Encounter Date Anxiety disorder NOS Established Patient with Sobia Short LISWS 03/07/2023 Last Documented On 3 9:52PM ; [facility] Dependence on nicotine in ci garettes - uncomplicated Established Patient with Sobia Short LISWS 03/07/2023 Last Documented On 3 9:52PM ; [facility] Mild recurrent major depression Estab lished Patient with Sobia Short LISWS 03/07/2023 Last Documented On 3 9:52PM ; [facility] [Body mass index [BMI] 33.0- 33.9, adult] assessment of body mass index Medical New Patient with Sonya Carlo FUNDS TRANSFER CLERK 03/07/2023 Last Documented On 3 5:15AM ; [facility] Colon screening Medical New Patient with Sonya Carlo FUNDS TRANSFER CLERK 03/07/2023 Last Documented On 3 5:15AM ; [facility] Diabetes Risk Test Score was 7.0 score 03/07/2023 Medical New Patient with Sonya Carlo FUNDS TRANSFER CLERK 03/07/2023 Last Documented On 3 5:15AM ; [facility] Screening for Hep C Medical New Patient with Ronnie sie Carlo FUNDS TRANSFER CLERK 03/07/2023 Last Documented On 3 5:15AM ; [facility] Screening for HIV Medical New Patient with Joselyn e Carlo FUNDS TRANSFER CLERK 03/07/2023 Last Documented On 3 5:15AM ; [facility] Work Phone: 1(224) 433-186706-15-2023 Evaluation note Includes: Assessments for all patient encounters Findings Encounter Date Anxiety disorder NOS Established Patient with Sobia Short LISWS 03/07/2023 Last Documented On 3 9:52PM ; [facility] Dependence on nicotine in ci garettes - uncomplicated Established Patient with Sobia Short LISWS 03/07/2023 Last Documented On 3 9:52PM ; [facility] Mild recurrent major depression Estab lished Patient with Sobia Short LISWS 03/07/2023 Last Documented On 3 9:52PM ; [facility] [Body mass index [BMI] 33.0- 33.9, adult] assessment of body mass index Medical New Patient with Sonya Carlo FUNDS TRANSFER CLERK 03/07/2023 Last Documented On 3 7:51PM ; [facility] Colon screening Medical New Patient with Sonya Carlo FUNDS TRANSFER CLERK 03/07/2023 Last Documented On 3 7:51PM ; [facility] Diabetes Risk Test Score was 7.0 score 03/07/2023 Medical New Patient with Sonya Carlo FUNDS TRANSFER CLERK 03/07/2023 Last Documented On 3 7:51PM ; [facility] Screening for Hep C Medical New Patient with Ronnie sie Carlo FUNDS TRANSFER CLERK 03/07/2023 Last Documented On 3 7:51PM ; [facility] Screening for HIV Medical New Patient with Joselyn Posada FUNDS TRANSFER CLERK 03/07/2023 Last Documented On 3 7:51PM ; [facility] Work Phone: 1(470) 920-224106-15-2023 History general Narrative - Reported Includes: Medical History in patient's chart Description Last Updated History of tooth extraction 03/07/2023 Last Documented On 3 5:15AM ; [facility] No medical history or no significant his tory 03/07/2023 Last Documented On 3 5:15AM ; [facility] No previous hospitalizations 03/07/2023 Last Documented On 3 5:15AM ; [facility] Recent immunization for flu 03/07/2023 Last Documented On 3 5:15AM ; [facility] Work Phone: [phone]) 222-506906-15-2023 History general Narrative - Reported Includes: Medical History in patient's chart Description Last Updated History of tooth extraction 03/07/2023 Last Documented On 3 7:51PM ; [facility] No medical history or no significant his tory 03/07/2023 Last Documented On 3 7:51PM ; [facility] No previous hospitalizations 03/07/2023 Last Documented On 3 7:51PM ; [facility] Recent immunization for flu 03/07/2023 Last Documented On 3 7:51PM ; [facility] Work Phone: 1(632) 370-871006-15-2023 Progress note* Progress note Date Encounter Last Documented by 03/07/2023 Established Patient Last docu mented on 03/10/2023; 9:52 PM, Sobia MALDONADO; [facility] Active Problems & Conditions - F41.9 - Anxiety Disorder Nos - E13.40 - Diabetes Mellitus Diabetic Peripheral Neuropathy - E11.9 - Diabetes Mellitus Type 2 Without Complication - I10 - Essential Hypertension - F33.0 - Major Depression Recurrent Mild - F17.210 - Nicotine Dependence Cigarettes Uncomplicated Chief Complaint The Chief Complaint is: Patient is in to establish care and [facility] met with patient to follow-up regarding PHQ [...] and provider: Counseling/Education P introduced patient to [facility] integrated model of care. P provided supportive [...] + 0 pt : Not at all. [facility]06-15-2023 Progress note* Progress note Date Encounter Last Documented by 03/07/2023 Medical New Patient Last jose cruz burt on 03/12/2023; 5:15 AM, Sonya Posada CNP; [facility] Active Problems & Conditions - F41.9 - Anxiety Disorder Nos - E13.40 - Diabetes Mellitus Diabetic Peripheral Neuropathy - E11.9 - Diabetes Mellitus Type 2 Without Complication - I10 - Essential Hypertension - F33.0 - Major Depression Recurrent Mild - F17.210 - Nicotine Dependence Cigarettes Uncomplicated Chief Complaint The Chief Complaint is: [facility] was seeing at [facility] diabetic. Referred Here Not referred by urgent care clinic and not the emergency room. No prior encounters. - Data to be reviewed: no clinical lab tests History of Present Illness Kiara Blanc is a 67 year old female. - Allergy list reviewed - Reviewed Medications Patient presents to 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 Glucose Negative, Bilirubin Negative, Urobilinogen 0.2, Nitrite Negative, and Ketones 0 Negative. Abnormal Leukocyte Estrase +++Large, Blood Trace Hemolyzed, Specific [place] 1.025, and pH 7.0. Urine clarity Turbid [...] Present, PCP Not Present, OXY Not Present, [id number] Not Present, MTD Not Present, MET Not [...] Dysuria Outside Labs/Microbiology: Urine Culture & Sensitivity ([id number]) EndCited StartCited- Type 2 diabetes mellitus without [...] 60 years or older (3 points) [Pre-DM]. 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 Referred Here Not referred by urgent care clinic and not the emergency room. No prior encounters. - Data to be reviewed: no clinical lab tests History of Present Illness Kiara Blanc is a 67 year old female. - Allergy list reviewed - Reviewed Medications Patient presents to 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 Glucose Negative, Bilirubin Negative, Urobilinogen 0.2, Nitrite Negative, and Ketones 0 Negative. Abnormal Leukocyte Estrase +++Large, Blood Trace Hemolyzed, Specific [place] 1.025, and pH 7.0. Urine clarity Turbid [...] Present, PCP Not Present, OXY Not Present, [id number] Not Present, MTD Not Present, MET Not [...] Dysuria Outside Labs/Microbiology: Urine Culture & Sensitivity ([id number]) EndCited StartCited- Type 2 diabetes mellitus without [...] older (3 points) [Pre-DM]. [id number] discussion with patient regarding smoking cessation, she denies need for prescription for Wellbutrin, she refuses Chantix related to she already has nightmares, and she does not want nicotine gum because of dentures. States she is going to get nicotine patches that she is can order from the TV for free. [facility]10-26-2022 NoteContinued goal-directed medical therapy, aspirin, statin, Plavix, metoprolol and lisinopril No concerning symptoms currently Continue risk factor modifications including heart healthy diet, regular exercise as tolerated and she is trying to quit smoking.[facility]10-26-2022 NoteContinue statinUnUniversity [facility] 07-18-2022 NoteContinues to take lasix [...] clinic in 6 months or earlier if neededUnUniversity Hospitals [facility] Center10-26-2022 NotePatient here for follow up LE edema per Mariam Sahu CNP. She had BMP drawn today. Review of Systems Cardiovascular: Positive for leg swelling. All other systems reviewed and are negative.[facility] 07-18-2022 NoteSays her LE edema is much better now. Denies chest pain and SOB. Review of Systems Cardiovascular: Positive for leg swelling.[facility] 07-18-2022 NoteHPI: Kiara Blanc is a [...] on exertion or at rest or orthopnea. [facility] II-without exacerbation currently patient is euvolemic Return to clinic in 6 months or earlier if needed Hyperlipidemia, mixed Continue statin Coronary artery disease involving [place] coronary artery of [place] heart without angina pectoris Continued goal-directed medical [...] can order from the TV for free. [facility]07-03-2022 NoteMR#: [id number] I [facility] Pt. Name: Kiara Blanc Admitted: 03/16/2022 [...] Quan MD Date Trans: 03/25/2022 05:24 P/mp [id number] cc: Peter Santos M.D. [address] [facility] [id number] Reinaldo Marlow M.D. [address] [place], [place] [address]* Diagnosis Acute cystitis without hematuria- Primary Acute cystitis documented in this [facility] noteNo assessment information available [facility] Work Phone: History general Narrative - Reported Includes: Medical History in patient's chart No [facility] Work Phone: History of Present illness Narrative History of Present Illness not supported for this document type No History of Present Illness [facility] Work Phone: Instructions Includes: Instructions for all patient encounters Education and Decision Aids were provided during visit for: BHP introduced patient to [facility] integrated model of care. ~P provided supportive [...] scheduled Last Documented On 3 9:52PM ; [facility] Discussed nutritional needs teach healthy choices including fruits and vegetables Last Documented On 3 3:42PM ; [facility] Patient education about a pr oper diet Last Documented On 3 3:42PM ; [facility] Discussed concerns about exe rcise : promote physical activity Last Documented On 3 3:42PM ; [facility] Referred Patient to a Diabet es Self-Management Program Last Documented On 3 4:08PM ; [facility] Work Phone: Instructions Includes: Instructions for all patient encounters Education and Decision Aids were provided during visit for: BHP introduced patient to [facility] integrated model of care. ~P provided supportive [...] scheduled Last Documented On 3 9:52PM ; [facility] Discussed nutritional needs teach healthy choices including fruits and vegetables Last Documented On 3 3:42PM ; [facility] Patient education about a pr oper diet Last Documented On 3 3:42PM ; [facility] Discussed concerns about exe rcise : promote physical activity ~ ~Get labs done and follow up in two weeks Last Documented On 3 5:15AM ; [facility] Referred Patient to a Diabet es Self-Management Program Last Documented On 3 4:08PM ; [facility] Work Phone: Instructions Includes: Instructions for all patient encounters Education and Decision Aids were provided during visit for: BHP introduced patient to [facility] integrated model of care. ~BHP provided supportive [...] scheduled Last Documented On 3 9:52PM ; [facility] Discussed nutritional needs teach healthy choices including fruits and vegetables Last Documented On 3 3:42PM ; [facility] Patient education about a pr oper diet Last Documented On 3 3:42PM ; [facility] Discussed concerns about exe rcise : promote physical activity ~ ~Get labs done and follow up in two weeks Last Documented On 3 5:15AM ; [facility] Referred Patient to a Diabet es Self-Management Program Last Documented On 3 4:08PM ; [facility] Work Phone: Patient problem outcome Narrative Includes: Evaluations & Outcomes for active Goals No [facility] Work Phone: Reason for referral (narrative)No Reason for Referral [facility] Work Phone: Review of systems Narrative - Reported Review of Systems not supported for this document type No Review of Systems [facility] Work Phone: Summary Purpose Family History No Family History Records Found Description Last Updated Maternal history of oncologic disorder 0 03/07/2023 Last Documented On 3 5:15AM ; [facility] Maternal history of type 2 diabetes luz itus 03/07/2023 Paternal history of type 2 diabetes luz itus 03/07/2023 Description Last Updated Maternal history of oncologic disorder 0 03/07/2023 Last Documented On 3 7:51PM ; [facility] Maternal history of type 2 diabetes luz itus 03/07/2023 Paternal history of type 2 diabetes luz itus 03/07/2023 Description Last Updated Maternal history of oncologic disorder 0 03/07/2023 Last Documented On 7:51PM ; [facility] Maternal history of type 2 [...] 03/27/2017 6:06 PM Directive Pat Aware Third Libertarian Effective Date Reviewed Sta tus Declined to [...] DATE CREATED AUTHOR AUTHOR'S ORGANIZ ATION 02/17/2022 [facility] dical Specialist DATE CREATED AUTHOR AUTHOR'S ORGANIZ ATION 04/04/2022 [facility] DATE CREATED AUTHOR AUTHOR'S ORGANIZ ATION 01/14/2023 [facility] DATE CREATED AUTHOR AUTHOR'S ORGANIZ ATION 01/23/2023 [facility] DATE CREATED AUTHOR AUTHOR'S ORGANIZ ATION 03/09/2023 [facility] DATE CREATED AUTHOR AUTHOR'S ORGANIZ ATION 06/14/2023 [facility] DATE CREATED AUTHOR AUTHOR'S ORGANIZ ATION 11/09/2023 [facility] Reason for Visit (unrecogniz ed section [...] Care Teams (unrecognized sec tion and content) 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 WAK[employer] W[employer] ? [facility]. provides no warranty or guarantee of the accuracy or completeness of information in this document.
[2024-03-24 15:44] LABS: Basophils Percent Auto 0.3 % (0.2-2.0); Eosinophils Absolute Auto 0.1 10^3/uL (0.0-0.7); Eosinophils Percent Auto 1.1 % (0.9-7.0); Hematocrit 41.8 % (36.0-48.0); Hemoglobin 13.3 g/dL (12.0-16.0); Immature Granulocytes Abs Auto 0.06 10^3/uL (0.00-0.03); Immature Granulocytes Pct Auto 0.6 % (0.0-0.5); Lymphocytes Absolute Auto 1.8 10^3/uL (1.2-3.8); Lymphocytes Percent Auto 18.6 % (20.5-60.0); Mean Corpuscular HGB Conc 31.8 g/dL (29.9-35.2); Mean Corpuscular Hemoglobin 26.7 pg (26.7-34.0); Mean Corpuscular Volume 83.9 fL (81.0-99.0); Mean Platelet Volume 10.6 fL (9.5-13.5); Monocytes Absolute Auto 0.7 10^3/uL (0.3-0.8); Monocytes Percent Auto 7.6 % (1.7-12.0); Neutrophils Absolute Auto 6.9 10^3/uL (1.4-6.5); Neutrophils Percent Auto 71.8 % (43.0-75.0); Platelet Count 272 10^3/uL (150-450); Red Blood Count 4.98 10^6/uL (4.20-5.40); Red Cell Distribution Width 15.5 % (11.0-15.0); White Blood Count 9.6 10^3/uL (4.0-11.0)
[2024-03-24] MEDS: 0.9 % SODIUM CHLORIDE 1,000 ML 125 ML IV (15:52)
[2024-03-24 15:56] LABS: Anion Gap 14.2; BUN Creatinine Ratio 22.2; Calcium 8.6 mg/dL (8.5-10.1); Carbon Dioxide 22.9 mmol/L (21.0-32.0); Chloride 103 mmol/L (98-107); Estimated GFR (African America 51 (>=60); Estimated GFR (Non-African Ame 42 (>=60); Glucose 344 mg/dL (74-106); Potassium 4.1 mmol/L (3.5-5.1); Sodium 136 mmol/L (136-145)
[2024-03-24] MEDS: INSULIN REGULAR 300 UNITS/3 ML 8 UNIT IV (16:32)
[2024-03-24 17:13] LABS: Glucometer 306 mg/dL (74-106)
== END 2024-03-24 17:36 | disposition home or self-care (01) ==
PROVIDERS: Emergency Provider Emergency Medicine
DX: E11.65 Type 2 diabetes mellitus with hyperglycemia (principal); F17.200 Nicotine dependence, unspecified, uncomplicated; Z79.4 Long term (current) use of insulin; Z91.148 Patient's other noncompliance with medication regimen for other reason
CPT/HCPCS: 36415; 80048; 81001; 85025; 93005; 99285

== ENCOUNTER 2024-03-31 15:16 | Observation (INO) | payer MEDICARE, SELFPAY ==
[2024-03-31] VITALS (30 sets, daily range): BP systolic 105–159; BP diastolic 57–94; PULSE 62–100; TEMP 36.7–36.8; O2SAT 93–99; BMI 33.3; BMI 33.5
--- NOTE | 2024-03-31 15:18 | ECG_ITS ---
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
--- NOTE | 2024-03-31 15:27 | ED.GENADUL1 ---
HPI HPI - General Adult General Chief complaint: Weakness Stated complaint: Altered Mental Status Time Seen by Provider: 03/31/24 15:18 History of Present Illness HPI narrative: Patient is a 69-year-old female well-known to this emergency department brought to the ER by ambulance for evaluation of high blood sugar. Patient states she does not know why she is here other than the high blood sugar. Patient has a longstanding history of noncompliance, poor hygiene and inability to care for herself. Adult Protective Services and psychiatric social worker have been involved with this patient for several years. She most recently was admitted at a local nursing facility, she signed herself out and on her most recent visit was unable to go back to the [facility] due to her noncompliance. She states she has been sleeping all day and has not eaten breakfast today. She has no other focal medical complaints. She arrives to the emergency department covered in stool. She denies any falls or injuries. Related Data Home Medications ?Medication ?Instructions ?Recorded ?Confirmed clopidogrel 75 mg tablet 75 mg PO DAILY 04/06/23 03/07/24 gabapentin 300 mg capsule 300 mg PO Q8H 04/06/23 03/07/24 insulin glargine 100 unit/mL (3 55 unit subcut DAILY 04/06/23 03/07/24 mL) subcutaneous pen (Lantus Solostar U-100 Insulin) amlodipine 10 mg tablet 10 mg PO DAILY 07/29/23 03/07/24 aspirin 81 mg tablet,delayed 81 mg PO DAILY 07/29/23 03/07/24 release (Birgit Low Dose Aspirin) atorvastatin 40 mg tablet (Lipitor) 40 mg PO QPM 07/29/23 03/07/24 dapagliflozin propanediol 10 mg 10 mg PO DAILY 07/29/23 03/07/24 tablet (Farxiga) metoprolol succinate 50 mg 50 mg PO DAILY 07/29/23 03/07/24 tablet,extended release 24 hr (Toprol XL) buspirone 5 mg tablet 5 mg PO BID 11/05/23 03/07/24 docusate sodium 100 mg capsule 100 mg PO DAILY 11/05/23 03/07/24 (Colace) donepezil 5 mg tablet (Aricept) 5 mg PO DAILY 11/05/23 03/07/24 ergocalciferol (vitamin D2) 1,250 50,000 unit PO .Saturday11/05/23 03/07/24 mcg (50,000 unit) capsule insulin lispro 100 unit/mL 1 sliding scale dose subcut 11/05/23 03/07/24 subcutaneous pen (Humalog KwikPen USEASDIRECTD (U-100) Insulin) liraglutide 0.6 mg/0.1 mL (18 mg/3 1.2 mg subcut Q24H 11/05/23 03/07/24 mL) subcutaneous pen injector (Victoza 3-Heladio) loperamide 2 mg capsule 2 mg PO Q6H PRN loose stool 11/05/23 03/07/24 melatonin 3 mg capsule 3 mg PO DAILY 11/05/23 03/07/24 pantoprazole 40 mg tablet,delayed 40 mg PO DAILY 11/05/23 03/07/24 release (Protonix) sertraline 25 mg tablet (Zoloft) 25 mg PO DAILY 11/05/23 03/07/24 dulaglutide 0.75 mg/0.5 mL 0.75 mg subcut QWEEK 03/07/24 03/07/24 subcutaneous pen injector (Trulicity) Previous Rx's ?Medication ?Instructions ?Recorded cefdinir 300 mg capsule 300 mg PO BID 14 days #28 caps 11/07/23 cephalexin 500 mg capsule 500 mg PO BID 3 days #6 caps 03/07/24 Allergies Allergy/AdvReac Type Severity Reaction Status Date / Time adhesive tape AdvReac Mild Verified 11/05/23 09:48 hydrocodone [From Vicodin] AdvReac Mild Nausea Verified 11/05/23 09:48 Opioid HPI Opioid Management Most Recent Opioid Data: Last Pain Scale 6 03/24/24 16:02 Last Pain Intensity 4 07/31/23 14:13 Ur Phencyclidine Scrn Negative (NEGATIVE) 04/06/23 15:46 Review of Systems ROS Constitutional Denies: fever or chills Ears, nose, mouth, and throat Denies: throat pain or nasal congestion Cardiovascular Denies: chest pain Respiratory Denies: shortness of breath or cough Gastrointestinal Denies: nausea or vomiting Genitourinary Denies: painful urination Musculoskeletal Denies: back pain Integumentary/Breast Denies: rash Hematologic/Lymphatic Denies: easy bruising or easy bleeding [facility] Medical History (Updated 03/31/24 @ 18:13 by POLI [place]) Renal cyst, acquired, right ?N28.1 - Cyst of kidney, acquired (ICD-10) Frequent falls ?R29.6 - Repeated falls (ICD-10) Fracture of toe ?S92.919A - Unspecified fracture of unspecified toe(s), initial encounter for closed fracture (ICD-10) Adult failure to thrive ?R62.7 - Adult failure to thrive (ICD-10) Weakness ?R53.1 - Weakness (ICD-10) Unable to care for self ?Z78.9 - Other specified health status (ICD-10) Dehydration ?E86.0 - Dehydration (ICD-10) Dementia ?F03.90 - Unspecified dementia, unspecified severity, without behavioral disturbance, psychotic disturbance, mood disturbance, and anxiety (ICD-10) CAD (coronary artery disease) ?I25.10 - Atherosclerotic heart disease of circle coronary artery without angina pectoris (ICD-10) Elevated troponin ?R77.8 - Other specified abnormalities of plasma proteins (ICD-10) Adult failure to thrive ?R62.7 - Adult failure to thrive (ICD-10) HLD (hyperlipidemia) ?E78.5 - Hyperlipidemia, unspecified (ICD-10) Hypertension ?I10 - Essential (primary) hypertension (ICD-10) Hypokalemia ?E87.6 - Hypokalemia (ICD-10) Type 2 diabetes mellitus with insulin therapy ?E11.9 - Type 2 diabetes mellitus without complications (ICD-10) ?Z79.4 - custodial (current) use of insulin (ICD-10) Surgical History (Updated 07/28/23 @ 23:58 by Carlin Saenz) History of bilateral knee arthroplasty ?Z96.653 - Presence of artificial knee joint, bilateral (ICD-10) Hx of CABG ?Z95.1 - Presence of aortocoronary bypass graft (ICD-10) Family History (Updated 07/29/23 @ 00:00 by Carlin Saenz) Father Family history of CHF (congestive heart failure) Family history of cancer Family history of diabetes mellitus Family history of hypertension Mother Family history of CHF (congestive heart failure) Family history of cancer Family history of diabetes mellitus Family history of hypertension Family history of myocardial infarction Family history of stroke Social History Within the past year, how often did you have a drink containing alcohol: never Score interpretation: A score less than 3 is consistent with normal alcohol consumption. 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 Known occupational exposures/hazards: No Highest level of school completed/degree received: Associate degree: academic program Do you want help with school or training: No Are you now , , , , never or living with a partner: In a typical week, how many times do you talk on the telephone with family, friends, or neighbors: 3 or more times per week How often do you get together with friends or relatives: twice per week How often do you attend yazidi or scientologist services: 4 or more times per year Do you belong to any clubs or organizations such as yazidi groups unions, [employer] or athletic groups, or school groups: yes Total score: 4 Score interpretation: A score of greater than or equal to 2 indicates the lowest level of social isolation. Little interest or pleasure in doing things: not at all Feeling down, depressed, or hopeless: not at all Feel stressed/tense/nervous/anxious/difficulty sleeping: not at all Due to disability, difficulty making decisions: No Do you think of yourself as: straight/heterosexual Gender Identity: female Exam Narrative Exam Narrative: Gen.: Awake, alert, in no distress; Unkempt with poor hygiene and extremities are covered in stool that is dried Head: Normocephalic, atraumatic ENT: Moist mucous membranes Respiratory: No respiratory distress, lungs clear bilaterally Cardio: Regular rate and rhythm Gastrointestinal: Abdomen is soft, nondistended and nontender to palpation; Pants are soaked with urine Extremities: Moves extremities equally, no injuries noted; 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; Extremities, buttocks and groin are excoriated, erythematous and tender Psych: Normal mood and affect Neuro: No focal neuro deficit Skin: Warm, dry, intact Constitutional Vital Signs, click to edit/add: Last Vital Signs Temp 98.3 F 03/31/24 15:30 Pulse 62 03/31/24 18:00 Resp 21 H 03/31/24 18:00 BP 136/61 03/31/24 18:00 Pulse Ox 99 03/31/24 15:30 Course Vital Signs Vital signs: Vital Signs Blood Pressure 128/75 03/31/24 15:20 Temperature 98.3 F 03/31/24 15:30 Pulse Rate 62 03/31/24 18:00 Respiratory Rate 21 H 03/31/24 18:00 Blood Pressure 136/61 03/31/24 18:00 Pulse Oximetry 99 03/31/24 15:30 Medical Decision Making MDM Narrative Medical decision making narrative: Patient treated with IV fluids. She was covered in stool with multiple areas of excoriation, erythema and irritation of the skin in the groin, back and buttocks. She has a small blistered area to the left heel. She has been treated for diabetic wound infection in the past although there is no significant cellulitis at this time. Labs are stable, chest x-ray is stable and she has no EKG changes. Patient is awake, alert and oriented in the ER. She was given IV Rocephin for UTI and will be admitted for observation for weakness and urinary tract infection. I contacted psychiatric social worker and left her a message to make her aware of the patient's presentation for disposition. SUPERVISED APC VISIT, PHYSICIAN ATTESTATION: Based on the medical record the care appears appropriate. ? Medical Records Medical records reviewed: Yes I reviewed the patient's medical records Lab Data Lab results reviewed: Yes I reviewed the patient's lab results Labs: Lab Results 03/31/24 03/31/24 03/31/24 Range/Units 15:42 15:44 17:00 WBC 10.3 (4.0-11.0) 10^3/uL RBC 5.33 (4.20-5.40) 10^6/uL Hgb 14.4 (12.0-16.0) g/dL Hct 44.2 (36.0-48.0) % MCV 82.9 (81.0-99.0) fL MCH 27.0 (26.7-34.0) pg MCHC 32.6 (29.9-35.2) g/dL RDW 15.5 H (11.0-15.0) % Plt Count 244 (150-450) 10^3/uL MPV 11.7 (9.5-13.5) fL Neut % (Auto) 72.1 (43.0-75.0) % Lymph % (Auto) 17.1 L (20.5-60.0) % [place] % (Auto) 8.2 (1.7-12.0) % Eos % (Auto) 1.7 (0.9-7.0) % Baso % (Auto) 0.3 (0.2-2.0) % Neut # (Auto) 7.4 H (1.4-6.5) 10^3/uL Lymph # (Auto) 1.8 (1.2-3.8) 10^3/uL [place] # (Auto) 0.8 (0.3-0.8) 10^3/uL Eos # (Auto) 0.2 (0.0-0.7) 10^3/uL Baso # (Auto) 0.0 (0.0-0.1) 10^3/uL Abs Immat Gran (auto) 0.06 H (0.00-0.03) 10^3/uL Imm/Tot Granulo (auto) 0.6 H (0.0-0.5) % PT 10.2 (9.0-11.6) sec INR 0.96 VBG pH 7.389 (7.330-7.430) VBG pCO2 27.3 L (40.0-52.0) mmHg Sodium 136 (136-145) mmol/L Potassium 4.5 (3.5-5.1) mmol/L Chloride 106 (98-107) mmol/L Carbon Dioxide 21.3 (21.0-32.0) mmol/L Anion Gap 13.2 BUN 36.0 H (7.0-18.0) mg/dL Creatinine 1.21 H (0.55-1.02) mg/dL Est GFR ( Amer) 54 L (>=60) Est GFR (Non-Af Amer) 44 L (>=60) BUN/Creatinine Ratio 29.8 Glucose 349 H (74-106) mg/dL Lactate 2.0 (0.4-2.0) mmol/L Calcium 9.2 (8.5-10.1) mg/dL Total Bilirubin 0.6 (0.2-1.0) mg/dL AST 9 L (15-37) U/L ALT 14 (14-59) U/L Alkaline Phosphatase 142 H (46-116) U/L Total Creatine Kinase 51 (26-192) U/L Troponin I High Sens 43.3 (4.0-51.3) pg/mL Total Protein 7.3 (6.4-8.2) g/dL Albumin 3.1 L (3.4-5.0) g/dL Globulin 4.2 g/dL Albumin/Globulin Ratio 0.7 Lipase 22.0 (16.0-77.0) U/L Procalcitonin <0.05 (0.00-0.50) ng/mL TSH 1.065 (0.358-3.740) uIU/mL Urine Color Yellow (YELLOW) Urine Clarity Clear (CLEAR) Urine pH 6.0 (5.0-9.0) Ur Specific [place] 1.025 (1.005-1.025) Urine Protein 100 A (NEG/TRACE) mg/dL Urine Glucose (UA) >=1000 A (NEGATIVE) mg/dL Urine Ketones Negative (NEGATIVE) mg/dL Urine Occult Blood Large A (NEGATIVE) Urine Nitrite Negative (NEGATIVE) Urine Bilirubin Negative (NEGATIVE) Urine Urobilinogen 0.2 (0.2-1.0) EU/dL Ur Leukocyte Esterase Moderate A (NEGATIVE) Urine RBC 5-10 A (0-2) #/HPF Urine WBC >100 A (NONE SEEN) #/HPF Ur Squamous Epith Cells Few A (NONE/RARE) #/LPF Urine Crystals None seen (None Seen) #/HPF Urine Bacteria Small A (NONE SEEN) #/HPF Urine Casts None seen (NONE SEEN) #/LPF Urine Mucus None seen (NONE SEEN) Urine Yeast Seen A (NONE SEEN) Ur Culture Indicated? Yes Ethanol Quant <3 mg/dL Acetone, Qual Negative (NEGATIVE) POC Glucose 309 H (74-106) mg/dL Imaging Data Chest x-ray: Attestation: I have reviewed the pertinent imaging results. ECG Data Attestation: I personally reviewed and interpreted this ECG as follows: (Normal sinus rhythm at a rate of 87, no acute ST elevation or ectopy. EKG reviewed by attending physician) Discharge Plan Discharge Chief Complaint: Weakness Patient Disposition: Admitted as Observation Time of Disposition Decision: 18:13 Prescriptions / Home Meds: No Action amlodipine 10 mg tablet 10 mg PO DAILY dapagliflozin propanediol [Farxiga] 10 mg tablet 10 mg PO DAILY atorvastatin [Lipitor] 40 mg tablet 40 mg PO QPM metoprolol succinate [Toprol XL] 50 mg tablet extended release 24 hr 50 mg PO DAILY aspirin [Birgit Low Dose Aspirin] 81 mg tablet,delayed release (DR/EC) 81 mg PO DAILY insulin lispro [Humalog KwikPen Insulin] 100 unit/mL insulin pen 1 sliding scale dose subcut USEASDIRECTD docusate sodium [Colace] 100 mg capsule 100 mg PO DAILY buspirone 5 mg tablet 5 mg PO BID donepezil [Aricept] 5 mg tablet 5 mg PO DAILY loperamide 2 mg capsule 2 mg PO Q6H PRN (Reason: loose stool) melatonin 3 mg capsule 3 mg PO DAILY pantoprazole [Protonix] 40 mg tablet,delayed release (DR/EC) 40 mg PO DAILY sertraline [Zoloft] 25 mg tablet 25 mg PO DAILY Victoza 3-Heladio 0.6 mg/0.1 mL (18 mg/3 mL) pen injector 1.2 mg subcut Q24H ergocalciferol (vitamin D2) 1,250 mcg (50,000 unit) capsule 50,000 unit PO .SATURDAY cefdinir 300 mg capsule 300 mg PO BID 14 Days Qty: 28 0RF Trulicity 0.75 mg/0.5 mL pen injector 0.75 mg SUBCUT QWEEK cephalexin 500 mg capsule 500 mg PO BID 3 Days Qty: 6 0RF gabapentin 300 mg capsule 300 mg PO Q8H insulin glargine [Lantus Solostar U-100 Insulin] 100 unit/mL (3 mL) insulin pen 55 unit SUBCUT DAILY Rx Instructions: PER RETAIL FILL HX - LAST FILLED 02/03/23 FOR A 62 DAY SUPPLY clopidogrel 75 mg tablet 75 mg PO DAILY Print Language: Serbian Referrals: Physician,Non-Staff, MD [Primary Care Provider] - 1 week
[2024-03-31 15:56] LABS: Glucometer 309 mg/dL (74-106)
[2024-03-31] MEDS: 0.9 % SODIUM CHLORIDE 1,000 ML 1000 ML IV (16:04)
[2024-03-31 16:05] LABS: Basophils Percent Auto 0.3 % (0.2-2.0); Eosinophils Absolute Auto 0.2 10^3/uL (0.0-0.7); Eosinophils Percent Auto 1.7 % (0.9-7.0); Hematocrit 44.2 % (36.0-48.0); Hemoglobin 14.4 g/dL (12.0-16.0); Immature Granulocytes Abs Auto 0.06 10^3/uL (0.00-0.03); Immature Granulocytes Pct Auto 0.6 % (0.0-0.5); Lymphocytes Absolute Auto 1.8 10^3/uL (1.2-3.8); Lymphocytes Percent Auto 17.1 % (20.5-60.0); Mean Corpuscular HGB Conc 32.6 g/dL (29.9-35.2); Mean Corpuscular Volume 82.9 fL (81.0-99.0); Mean Platelet Volume 11.7 fL (9.5-13.5); Monocytes Absolute Auto 0.8 10^3/uL (0.3-0.8); Monocytes Percent Auto 8.2 % (1.7-12.0); Neutrophils Absolute Auto 7.4 10^3/uL (1.4-6.5); Neutrophils Percent Auto 72.1 % (43.0-75.0); Platelet Count 244 10^3/uL (150-450); Red Blood Count 5.33 10^6/uL (4.20-5.40); Red Cell Distribution Width 15.5 % (11.0-15.0); White Blood Count 10.3 10^3/uL (4.0-11.0)
[2024-03-31 16:07] LABS: PCO2 VBG 27.3 mmHg (40.0-52.0); pH VBG 7.389 (7.330-7.430)
[2024-03-31 16:17] LABS: Acetone NEGATIVE (NEGATIVE)
[2024-03-31 16:32] LABS: Alanine Aminotransferase 14 U/L (14-59); Albumin Globulin Ratio 0.7; Albumin Level 3.1 g/dL (3.4-5.0); Alkaline Phosphatase 142 U/L (46-116); Anion Gap 13.2; Aspartate Amino Transferase 9 U/L (15-37); BUN Creatinine Ratio 29.8; Bilirubin Total 0.6 mg/dL (0.2-1.0); Calcium 9.2 mg/dL (8.5-10.1); Carbon Dioxide 21.3 mmol/L (21.0-32.0); Chloride 106 mmol/L (98-107); Estimated GFR (African America 54 (>=60); Estimated GFR (Non-African Ame 44 (>=60); Globulin 4.2 g/dL; Glucose 349 mg/dL (74-106); Potassium 4.5 mmol/L (3.5-5.1); Sodium 136 mmol/L (136-145); Thyroid Stimulating Hormone 1.065 uIU/mL (0.358-3.740); Total Protein 7.3 g/dL (6.4-8.2); Troponin I High Sensitivity 43.3 pg/mL (4.0-51.3)
[2024-03-31 16:33] LABS: Ethanol <3 mg/dL; INR 0.96; Prothrombin Time 10.2 sec (9.0-11.6)
[2024-03-31 16:44] LABS: Creatine Kinase 51 U/L (26-192)
[2024-03-31 16:45] LABS: PROCALCITONIN <0.05 ng/mL (0.00-0.50)
[2024-03-31 17:16] LABS: Bilirubin Urine NEGATIVE (NEGATIVE); Blood Urine LARGE (NEGATIVE); Clarity Urine CLEAR (CLEAR); Color Urine YELLOW (YELLOW); Glucose Urine UA >=1000 mg/dL (NEGATIVE); Ketones Urine NEGATIVE (NEGATIVE); Leukocyte Esterase Urine MODERATE (NEGATIVE); Nitrite Urine NEGATIVE (NEGATIVE); Protein Urine 100 mg/dL (NEG/TRACE); Specific Gravity Urine 1.025 (1.005-1.025); Urine Microscopic Indicated YES; Urobilinogen Urine 0.2 EU/dL (0.2-1.0)
--- NOTE | 2024-03-31 17:16 | XR_ITS ---
The [address] [address] Patient Name: EMILY HARO MRN: [id number] date: 1955 Sex: F Assigned Patient Location: ER Current Patient Location: ED.MAIN Accession/Order Number: [id number] Exam Date: 03/31/2024 17:34 Report Date: 03/31/2024 18:45 At the request of: SPENCER MARIA Procedure: XR chest 1V EXAM: XR chest 1V at 1729 hours HISTORY: Weakness COMPARISON: 11/05/2023 TECHNIQUE: AP semierect portable chest x-ray FINDINGS: The heart is not enlarged and the vasculature is not distended. No acute infiltrate, effusion or pneumothorax is identified. Sternal wire sutures and hardware are in place. The osseous structures are grossly intact. XR/XR chest 1V IMPRESSION: No acute infiltrate or evidence of cardiac decompensation. The overall appearance of the chest is essentially unchanged. Electronically authenticated by: LILLIE MACE Date: 03/31/2024 18:45
[2024-03-31 17:26] LABS: WBC Urine >100 #/HPF (NONE SEEN)
[2024-03-31 17:27] LABS: Cast Seen? NONE SEEN #/LPF (NONE SEEN); Crystals Seen? None Seen #/HPF (None Seen); Mucus Urine NONE SEEN (NONE SEEN)
[2024-03-31 17:28] LABS: Bacteria Urine SMALL #/HPF (NONE SEEN); Squamous Epithelial Cell Urine FEW #/LPF (NONE/RARE); Urine Culture Indicated YES
[2024-03-31] MEDS: CEFTRIAXONE 1,000 MG in 0.9 % SODIUM CHLORIDE 50 ML 100 MG IV (18:05)
[2024-03-31] MEDS: 0.9 % SODIUM CHLORIDE 1,000 ML 100 ML IV (21:25)
[2024-03-31 21:27] LABS: Glucometer 380 mg/dL (74-106)
[2024-03-31] MEDS: ATORVASTATIN CALCIUM 40 MG TABLET PO (21:27)
[2024-03-31] MEDS: DONEPEZIL HCL 10 MG TABLET PO (21:27)
[2024-03-31] MEDS: ENOXAPARIN SODIUM 40 MG/0.4 ML SYRINGE SUBQ (21:27)
[2024-03-31] MEDS: NYSTATIN 15 GM POWDER 1 APPLIC TOPICAL (21:27)
[2024-03-31] MEDS: BUSPIRONE HCL 10 MG TABLET PO (21:29)
[2024-03-31] MEDS: INSULIN ASPART 300 UNIT/3 ML PEN SUBQ (21:30)
[2024-03-31] MEDS: LACTULOSE 10 GM/15 ML (237ML) SOLUTION 20 GM PO (21:31)
--- NOTE | 2024-03-31 23:48 | PC.NURSE ---
Patient very angry with care. Hair was washed with shower cap and brushed d/t several knotted areas. Patient yells and gets angry with any care given.
[2024-04-01] VITALS (11 sets, daily range): BP systolic 121–157; BP diastolic 57–73; PULSE 73–96; TEMP 36.4–37; O2SAT 88–97
[2024-04-01 06:29] LABS: Basophils Percent Auto 0.4 % (0.2-2.0); Eosinophils Absolute Auto 0.2 10^3/uL (0.0-0.7); Eosinophils Percent Auto 1.9 % (0.9-7.0); Hemoglobin 13.2 g/dL (12.0-16.0); Immature Granulocytes Abs Auto 0.06 10^3/uL (0.00-0.03); Immature Granulocytes Pct Auto 0.7 % (0.0-0.5); Lymphocytes Percent Auto 22.8 % (20.5-60.0); Mean Corpuscular HGB Conc 32.2 g/dL (29.9-35.2); Mean Corpuscular Volume 83.8 fL (81.0-99.0); Mean Platelet Volume 11.7 fL (9.5-13.5); Monocytes Absolute Auto 0.9 10^3/uL (0.3-0.8); Neutrophils Absolute Auto 5.5 10^3/uL (1.4-6.5); Neutrophils Percent Auto 64.2 % (43.0-75.0); Platelet Count 237 10^3/uL (150-450); Red Blood Count 4.89 10^6/uL (4.20-5.40); Red Cell Distribution Width 15.6 % (11.0-15.0); White Blood Count 8.6 10^3/uL (4.0-11.0)
[2024-04-01 06:48] LABS: Alanine Aminotransferase 14 U/L (14-59); Albumin Globulin Ratio 0.7; Albumin Level 2.5 g/dL (3.4-5.0); Alkaline Phosphatase 109 U/L (46-116); Anion Gap 16.2; Aspartate Amino Transferase 15 U/L (15-37); BUN Creatinine Ratio 30.2; Bilirubin Total 0.4 mg/dL (0.2-1.0); Calcium 8.5 mg/dL (8.5-10.1); Carbon Dioxide 19.5 mmol/L (21.0-32.0); Chloride 109 mmol/L (98-107); Chol HDL Ratio 3.3; Cholesterol 133 mg/dL (<=200); Estimated GFR (African America >60 (>=60); Estimated GFR (Non-African Ame 58 (>=60); Globulin 3.6 g/dL; Glucose 140 mg/dL (74-106); HDL Cholesterol 40 mg/dL (40-60); Magnesium 1.6 mg/dL (1.8-2.4); Phosphorus 3.6 mg/dL (2.6-4.7); Potassium 3.7 mmol/L (3.5-5.1); Sodium 141 mmol/L (136-145); Total Protein 6.1 g/dL (6.4-8.2); Triglycerides 163 mg/dL (<=150); VLDL CHOLESTEROL 32.6 mg/dL
--- NOTE | 2024-04-01 09:47 | SWNOTE1 ---
KAREEM spoke to Ashley at [facility] and let her know pt is back and can't return home in the condition she is in. Ashley requested ED note, KAREEM faxed over. Ashley is going to check with Beverly, the director, to see if they can accept back.
--- NOTE | 2024-04-01 09:58 | PHOTOS ---
left heel left heel
[2024-04-01] MEDS: 0.9 % SODIUM CHLORIDE 1,000 ML 100 ML IV (10:03)
[2024-04-01] MEDS: CEFTRIAXONE 1,000 MG in 0.9 % SODIUM CHLORIDE 50 ML 100 MG IV (10:09)
[2024-04-01] MEDS: ZINC OXIDE 20% 1 APPLIC TOPICAL ×2 (10:17→21:36)
[2024-04-01] MEDS: NYSTATIN 15 GM POWDER 1 APPLIC TOPICAL ×2 (10:19→21:36)
--- NOTE | 2024-04-01 10:38 | P.HP_ITS ---
<Statement entered by Leif Pearson MD - 04/01/24 11:48> Patient seen and examined, agree with assessment and plan below. Presented with weakness and elevated BS. Found dehydration and UTI. Started Rocephin and IV fluids. PT/OT consulted. Resumed home medication. early childhood services coordinator consulted. Diagnosis: 1. UTI 2. Dehydration 3. Weakness 4. DM2 with hyperglycemia 5. HTN 6. Chronic HFrEF 7. CAD 8. 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 The pt is a poor historian and most of the history is obtained from the ED provider documentation. The patient stated to the ED provider that she does not know why she is here other than high blood sugar. She has a longstanding history of noncompliance, poor hygiene, and inability to care for herself. Adult Protective Services and high school social studies tutor have been involved with this patient for several years. She was recently was admitted at a local nursing facility, but she signed herself out and on her most recent visit to the ED, was unable to go back to the care home due to her noncompliance. She states she has been sleeping all day and has not eaten breakfast today. Her was reportedly requesting that she not be discharged back home. ED nursing noted that she was covered in feces on arrival and she had not been out of bed x 3 days. Workup in the ED revealed hyperglycemia (349), hypomagnesemia (1.6), and a positive UTI on UA with candiduria noted. She was admitted in observation to the hospitalist service overnight for her UTI, dehydration, failure to thrive and self-care deficit. early childhood services coordinator been consulted for help with placement of this patient in long-term care. At the time of my exam the patient is attempting to eat her breakfast. She does not cooperate with a good deal of my exam and complains that she just wants to eat. She does not give any answer as to why she did not get up to use the bathroom at home and chose to lay in bed in feces for several days other than she was tired and did not feel like getting up. She is alert and oriented x 2 (self and place). Opioid HPI Opioid Management Most Recent Pain and Opioid Data: Last Pain Scale 6 03/24/24 16:02 Last Pain Intensity 4 07/31/23 14:13 Last Pain Assessment 04/01/24 10:00 Ur Phencyclidine Scrn Negative (NEGATIVE) 04/06/23 15:46 Review of Systems ROS Status of ROS unobtainable due to mental status and other (Pt refusing to answer many questions) [facility] Medical History (Updated 04/01/24 @ 11:10 by Ana Weldon NP) GERD (gastroesophageal reflux disease) ?K21.9 - Gastro-esophageal reflux disease without esophagitis (ICD-10) Depression ?F32.A - Depression, unspecified (ICD-10) Non-compliant patient ?Z91.199 - Patient's noncompliance with other medical treatment and regimen due to unspecified reason (ICD-10) Type 2 diabetes mellitus with hyperglycemia ?E11.65 - Type 2 diabetes mellitus with hyperglycemia (ICD-10) Hyperglycemia ?R73.9 - Hyperglycemia, unspecified (ICD-10) Diabetic infection of left foot ?E11.628 - Type 2 diabetes mellitus with other skin complications (ICD-10) ?L08.9 - Local infection of the skin and subcutaneous tissue, unspecified (ICD-10) Postoperative anemia ?D64.9 - Anemia, unspecified (ICD-10) Debility ?R53.81 - Other malaise (ICD-10) Chronic HFrEF (heart failure with reduced ejection fraction) ?I50.22 - Chronic systolic (congestive) heart failure (ICD-10) Renal cyst, acquired, right ?N28.1 - Cyst of kidney, acquired (ICD-10) Frequent falls ?R29.6 - Repeated falls (ICD-10) Fracture of toe ?S92.919A - Unspecified fracture of unspecified toe(s), initial encounter for closed fracture (ICD-10) Adult failure to thrive ?R62.7 - Adult failure to thrive (ICD-10) Weakness ?R53.1 - Weakness (ICD-10) Unable to care for self ?Z78.9 - Other specified health status (ICD-10) Dementia ?F03.90 - Unspecified dementia, unspecified severity, without behavioral disturbance, psychotic disturbance, mood disturbance, and anxiety (ICD-10) CAD (coronary artery disease) ?I25.10 - Atherosclerotic heart disease of [place] coronary artery without angina pectoris (ICD-10) Elevated troponin ?R77.8 - Other specified abnormalities of plasma proteins (ICD-10) HLD (hyperlipidemia) ?E78.5 - Hyperlipidemia, unspecified (ICD-10) Hypertension ?I10 - Essential (primary) hypertension (ICD-10) Hypokalemia ?E87.6 - Hypokalemia (ICD-10) Type 2 diabetes mellitus with insulin therapy ?E11.9 - Type 2 diabetes mellitus without complications (ICD-10) ?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.4 - 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 of insulin (ICD-10) Surgical History (Updated 07/28/23 @ 23:58 by Carlin Saenz) History of bilateral knee arthroplasty ?Z96.653 - Presence of artificial knee joint, bilateral (ICD-10) Hx of CABG ?Z95.1 - Presence of aortocoronary bypass graft (ICD-10) Family History (Updated 07/29/23 @ 00:00 by Carlin Saenz) Father Family history of CHF (congestive heart failure) Family history of cancer Family history of diabetes mellitus Family history of hypertension Mother Family history of CHF (congestive heart failure) Family history of cancer Family history of diabetes mellitus Family history of hypertension Family history of myocardial infarction Family history of stroke Social History Within the past year, how often did you have a drink containing alcohol: never Score interpretation: A score less than 3 is consistent with normal alcohol consumption. 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 Known occupational exposures/hazards: No Highest level of school completed/degree received: Associate degree: academic program Do you want help with school or training: No Are you now , , , , never or living with a partner: In a typical week, how many times do you talk on the telephone with family, friends, or neighbors: 3 or more times per week How often do you get together with friends or relatives: twice per week How often do you attend hinduism or restorationist services: 4 or more times per year Do you belong to any clubs or organizations such as hinduism groups unions, fraternal or athletic groups, or school groups: yes Total score: 4 Score interpretation: A score of greater than or equal to 2 indicates the lowest level of social isolation. Little interest or pleasure in doing things: not at all Feeling down, depressed, or hopeless: not at all Feel stressed/tense/nervous/anxious/difficulty sleeping: not at all Due to disability, difficulty making decisions: No Do you think of yourself as: straight/heterosexual Gender Identity: female Meds Home Medications and Allergies Home Medications ?Medication ?Instructions ?Recorded ?Confirmed ?Type clopidogrel 75 mg tablet 75 mg PO DAILY 04/06/23 03/31/24 History gabapentin 300 mg capsule 300 mg PO Q8H 04/06/23 03/31/24 History insulin glargine 100 unit/mL (3 55 unit subcut DAILY 04/06/23 04/01/24 History mL) subcutaneous pen (Lantus Solostar U-100 Insulin) amlodipine 10 mg tablet 10 mg PO DAILY 07/29/23 03/31/24 History atorvastatin 40 mg tablet (Lipitor) 40 mg PO QPM 07/29/23 03/31/24 History dapagliflozin propanediol 10 mg 10 mg PO DAILY 07/29/23 03/31/24 History tablet (Farxiga) metoprolol succinate 50 mg 50 mg PO DAILY 07/29/23 03/31/24 History tablet,extended release 24 hr (Toprol XL) docusate sodium 100 mg capsule 100 mg PO .QHS 11/05/23 04/01/24 History (Colace) ergocalciferol (vitamin D2) 1,250 50,000 unit PO .Saturday11/05/23 03/31/24 History mcg (50,000 unit) capsule insulin lispro 100 unit/mL 2 - 12 sliding scale dose subcut 11/05/23 04/01/24 History subcutaneous pen (Humalog KwikPen ACHS (U-100) Insulin) loperamide 2 mg capsule 2 mg PO Q6H PRN loose stool 11/05/23 03/31/24 History melatonin 3 mg capsule 3 mg PO .QHS 11/05/23 03/31/24 History pantoprazole 40 mg tablet,delayed 40 mg PO DAILY 11/05/23 03/31/24 History release (Protonix) buspirone 10 mg tablet 10 mg PO BID 03/31/24 03/31/24 History cholecalciferol (vitamin D3) 25 25 mcg PO DAILY 03/31/24 03/31/24 History mcg (1,000 unit) capsule donepezil 10 mg tablet 10 mg PO .QHS 03/31/24 03/31/24 History dulaglutide 1.5 mg/0.5 mL 1.5 mg subcut .QWEEKLY 03/31/24 03/31/24 History subcutaneous pen injector (Trulicity) sertraline 50 mg tablet 50 mg PO DAILY 03/31/24 03/31/24 History spironolactone 25 mg tablet 12.5 mg PO QAM 03/31/24 03/31/24 History aspirin 81 mg chewable tablet 81 mg PO DAILY 04/01/24 04/01/24 History Allergies Allergy/AdvReac Type Severity Reaction Status Date / Time adhesive tape AdvReac Mild Verified 11/05/23 09:48 hydrocodone [From Vicodin] AdvReac Mild Nausea Verified 11/05/23 09:48 Exam Constitutional Vital Signs, click to edit/add: Last Vital Signs Temp 98.6 F 04/01/24 07:52 Pulse 73 04/01/24 07:52 Resp 20 04/01/24 07:52 BP 157/69 H 04/01/24 07:52 Pulse Ox 88 L 04/01/24 07:52 O2 Del Method Room Air 04/01/24 07:52 Common normals: no apparent distress, alert and well nourished Orientation/consciousness: Yes awake [facility] Common normals: normocephalic, head/scalp atraumatic, hearing grossly normal bilaterally, external nose normal and moist oral mucous membranes Eye Common normals: PERRL, EOMs intact bilaterally, conjunctivae normal and no scleral icterus Alignment: alignment normal Eyelid: eyelids normal Conjunctiva: conjunctiva(e) normal Pupil: PERRL Neck & C-Spine Common normals: full ROM, supple and no JVD Chest Common normals: inspection of chest normal Chest: symmetrical chest wall rise Respiratory Common normals: normal respiratory effort, no retractions, no use of accessory muscles and clear to auscultation bilaterally Effort & inspection: able to speak in complete sentences Cardio Common normals: no JVD, regular rate, regular rhythm, S1 normal heart sound, S2 normal heart sound, no gallops, no clicks, no murmurs, no rub and peripheral pulses 2+ throughout GI Common normals: Normal to inspection, nondistended, normoactive bowel sounds present, soft to palpation, non-tender, no hepatosplenomegaly, no masses and no bruits Back & Pelvis Common normals: thoracic and lumbar spine normal to inspection Extremity Common normals: normal capillary refill and no pedal edema General: normal exam except as noted; no clubbing and no cyanosis Right lower extremity: foot and digits (Feces under toenails. Onychomycosis noted.) Left lower extremity: foot and digits (Prior forefoot amp. Open medial heel blister) Neuro Miesha Coma Scale: GCS not evaluated Common normals: CN's II-XII intact bilaterally, moves all extremities, no focal motor deficits and no sensory deficits noted Speech: speech normal Motor exam: strength 5/5 throughout Psych Common normals: affect normal and activity/motor behavior normal Appearance: unkempt and disheveled Attitude: withdrawn, uncooperative (at times) and belligerent (at times) Mood and affect: irritable Memory/cognition: memory grossly impaired and cognition grossly intact Insight: limited Judgement: limited Results Labs Labs: Short CBC 03/31/24 04/01/24 Range/Units 15:44 06:17 WBC 10.3 8.6 (4.0-11.0) 10^3/uL Hgb 14.4 13.2 (12.0-16.0) g/dL Hct 44.2 41.0 (36.0-48.0) % Plt Count 244 237 (150-450) 10^3/uL BMP 03/31/24 04/01/24 15:44 06:17 Sodium 136 141 Potassium 4.5 3.7 Chloride 106 109 H Carbon Dioxide 21.3 19.5 L BUN 36.0 H 29.0 H Creatinine 1.21 H 0.96 Glucose 349 H 140 H Calcium 9.2 8.5 Cardiac Enzymes 03/31/24 Range/Units 15:44 Total Creatine Kinase 51 (26-192) U/L Liver Function 03/31/24 04/01/24 Range/Units 15:44 06:17 Total Bilirubin 0.6 0.4 (0.2-1.0) mg/dL AST 9 L 15 (15-37) U/L ALT 14 14 (14-59) U/L Alkaline Phosphatase 142 H 109 (46-116) U/L Albumin 3.1 L 2.5 L (3.4-5.0) g/dL Urine 03/31/24 Range/Units 17:00 Urine Color Yellow (YELLOW) Urine Clarity Clear (CLEAR) Urine pH 6.0 (5.0-9.0) Ur Specific [place] 1.025 (1.005-1.025) Urine Protein 100 A (NEG/TRACE) mg/dL Urine Glucose (UA) >=1000 A (NEGATIVE) mg/dL ABG ABG results: 03/31/24 15:44 VBG pH 7.389 VBG pCO2 27.3 L Pulse Oximetry Attestation: I have reviewed the pertinent pulse oximetry results. Assessment and Plan Assessment and Plan (1) Acute UTI: Assessment and Plan: Acute * Adm observation * IVPB Rocephin pending UA C&S * CBC, CMP daily (2) Candiduria: Assessment and Plan: Acute * Yeast noted in urine - d/t pt's poor hygeine and recurrent UTIs, we will treat this as an active infection * Diflucan IVPB daily * Plan 14 day total course IV/PO (3) Hypomagnesemia: Assessment and Plan: Acute * Mag sulfate 2gm x 1 * Repeat mag level in AM (4) Dehydration: Assessment and Plan: Acute * Clinical dehydration, w/ renal function slightly worse than baseline on ED labs * Pre-renal azotemia * 1 liter IVF bolus given in the ED * NS maintenance IVF at 100/hr (5) Weakness: Assessment and Plan: Acute on Chronic * Significant weakness at baseline, likely exacerbated by an acute UTI and dehydration * See above * PT/OT consults (6) Self-care deficit: Assessment and Plan: Chronic * Pt has long history of poor hygiene and non-compliance with care * Spouse does not think the pt can be managed at home anymore * C/S high school social studies tutor for assistance with long-term placement (7) Type 2 diabetes mellitus with hyperglycemia: Assessment and Plan: Chronic * Continue home Lantus, Farxiga * Hold home Trulicity - we suspect pt is non-compliant and not taking this medication * ACHS glucometer checks * Med CC diet * High dose SSI for glucose correction (8) Dementia: Assessment and Plan: Chronic * Continue home donepezil, buspar Qualifiers: Dementia type: unspecified type Dementia severity: severe Dementia behavioral or psychological symptom: without behavioral, psychotic, or mood disturbance or anxiety Qualified Code(s): F03.C0 - Unspecified dementia, severe, without behavioral disturbance, psychotic disturbance, mood disturbance, and anxiety (9) CAD (coronary artery disease): Assessment and Plan: Chronic * Continue home Statin, aspirin, BB (10) Hypertension: Assessment and Plan: Chronic * Continue home amlodipine, metoprolol (11) Depression: Assessment and Plan: Chronic * Continue home sertraline (12) GERD (gastroesophageal reflux disease): Assessment and Plan: Chronic * Continue home PPI
--- NOTE | 2024-04-01 10:53 | SWNOTE1 ---
KAREEM spoke to pt. Pt voiced she was not feeling well at home. She stated she uses her walker at home and her is at home with her. KAREEM advised pt that due to safety reasons it would be a concern if pt returned home with as she is not able to care for herself. Pt in agreement. KAREEM asked pt if she would like to return to [facility] ([facility])? She stated she is not sure they will take her back. SW let pt know that SW has a message out to Ashley at [facility]. SW to follow back up with pt once we know if [facility] can accept or not. KAREEM had a message from Ashley and she voiced they have a voicemail out to the . Pt and would have to agree to let [facility] become payee for both pt and and that would have to agree that he can't come pick her up like he has in past. SW to attempt to call as well.
--- NOTE | 2024-04-01 11:51 | SWNOTE1 ---
SW called and left voicemail for pt's .
--- NOTE | 2024-04-01 11:58 | CM.NOTE ---
10:[address] Pearson. [address]. Pearson discussed lab results and UTI & weakness with Kiara. Also discussed need to work with PT due to weakness and depending on what happens, may need to go for rehab. Kiara verbalized understandng. Currently awaiting on PT/OT eval results to decide discharge plans.
--- NOTE | 2024-04-01 12:17 | SWNOTE1 ---
SW spoke to OT and pt basically refused to work with therapy. PT will be coming this afternoon, will check to see if she participates.
[2024-04-01] MEDS: METOPROLOL SUCCINATE 50 MG TAB.ER.24H PO (13:04)
[2024-04-01] MEDS: GABAPENTIN 300 MG CAPSULE PO ×2 (13:04→21:36)
[2024-04-01] MEDS: FLUCONAZOLE IN NACL,ISO-OSM 200 MG/100 ML PIGGYBACK 100 MG IV (13:04)
[2024-04-01] MEDS: INSULIN ASPART 300 UNIT/3 ML PEN SUBQ ×3 (13:07→21:41)
--- NOTE | 2024-04-01 13:29 | SWNOTE1 ---
KAREEM called in report to Adult Protective Services, they are aware of pt and had reports called in in regards to pt's safety at home. They took report from KAREEM and will add to her case.
[2024-04-01 13:32] LABS: Glucometer 418 mg/dL (74-106)
--- NOTE | 2024-04-01 14:56 | SWNOTE1 ---
KAREEM received message from Ashley at [facility] and this is there final time taking patient back, if she signs out AMA, they will not take her back again. KAREEM did ask Ashley at [facility] if she can come today? She can come today if transport can be set up. SW to work on this. PASRR needs completed. KAREEM let nursing know.
--- NOTE | 2024-04-01 15:45 | SWNOTE1 ---
SW attempted to set up transport with [facility], [facility], and [facility],, none of which had availability. KAREEM let director know and she attempted resources as well. KAREEM expressed to Director that having pt's transport may not be safest option as he has came to pick her up before from half-way and she may talk in to taking her home and then she will end up back in ED. This is last time [facility] will take her. At this time SW set up transport for 10:45 am with [facility]. Nursing and UTILITY AIDE are made aware. KAREEM let Ashley [facility] [place] know as well.
--- NOTE | 2024-04-01 15:49 | SWNOTE1 ---
SW also spoke to pt's to update him. 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
[2024-04-01] MEDS: MAGNESIUM SULFATE IN WATER 2 GM/50 ML PREMIX IV (16:06)
--- NOTE | 2024-04-01 16:42 | W.PM.WC_ITS ---
Wound Consult Note Assessment and Plan (1) Acute UTI: (2) Candiduria: (3) Hypomagnesemia: (4) Dehydration: (5) Weakness: (6) Self-care deficit: (7) Type 2 diabetes mellitus with hyperglycemia: (8) Dementia: Qualifiers: Dementia type: unspecified type Dementia severity: severe Dementia behavioral or psychological symptom: without behavioral, psychotic, or mood disturbance or anxiety Qualified Code(s): F03.C0 - Unspecified dementia, severe, without behavioral disturbance, psychotic disturbance, mood disturbance, and anxiety (9) CAD (coronary artery disease): (10) Hypertension: (11) Depression: (12) GERD (gastroesophageal reflux disease): Plan Patient is a 69-year-old female with past medical history listed above known to our office for previous admissions and underwent left TMA and October 2023. She is admitted to [facility] after failure to thrive from signing herself out from previous custodial facility. She was found lying in bed for several days in disheveled manner. We were consulted for new ulceration to the left lateral heel. Patient is unaware of how long this has been there. She does not provide much history. Last known A1c that I can see was from July 2023 was 10 and her glucose upon arrival was in the 3-400s. Previous. She denies any recent injury and denies any other acute lower extremity complaints. Denies any constitutional symptoms at time of visit. Bilateral DP and PT pulses are palpable, CFT is brisk. Skin temperature is warm and symmetric without focal increase. No erythema edema or ecchymosis. Left TMA site is fully epithelialized no signs of dehiscence. There is a lysed bulla with intact underlying partial-thickness ulceration to the left lateral heel. No fluctuance crepitus or bogginess. No signs of acute infection. Multiple punctate tract eschars to the right second and third digit, stable noninfected. Range of motion is supple without pain or crepitus. Mild palpatory tenderness elicited to the left heel ulcer. No other palpatory tenderness elicited upon exam. Compartments are soft compressible, no pain with calf or thigh compression. Patient examined evaluated. All findings discussed with patient and all questions answered to patient's satisfaction. Pertinent labs and imaging reviewed. Patient has evidence of a prior bulla suggestive of DTI to the lateral left heel with underlying partial-thickness ulceration. No signs of acute infection to the bilateral lower extremity. Left foot with punctate dry stable eschars to the second and third digits. This may be painted with Betadine and left open to air. Left heel: Recommend dressing with Xeroform, dry sterile dressing and loose gauze roll with offloading boots or pillows to elevate the heels. Educated her on during the heels are offloaded when resting. Dressings to be changed every other day. Weightbearing as tolerated No indication for acute surgical intervention. Follow-up 2-3 weeks following discharge with Dr. Montemayor at [facility]. Please call with questions or concerns.
[2024-04-01] MEDS: ACETAMINOPHEN 325 MG TABLET 650 MG PO (18:49)
[2024-04-01] MEDS: DONEPEZIL HCL 10 MG TABLET PO (21:36)
[2024-04-01] MEDS: ENOXAPARIN SODIUM 40 MG/0.4 ML SYRINGE SUBQ (21:36)
[2024-04-01] MEDS: BUSPIRONE HCL 10 MG TABLET PO (21:36)
[2024-04-01] MEDS: ATORVASTATIN CALCIUM 40 MG TABLET PO (21:36)
[2024-04-02] MEDS: LACTULOSE 10 GM/15 ML (237ML) SOLUTION 20 GM PO (05:30)
[2024-04-02] MEDS: OMEPRAZOLE 40 MG CAPSULE.DR PO (05:31)
[2024-04-02] MEDS: GABAPENTIN 300 MG CAPSULE PO (05:31)
[2024-04-02 05:46] VITALS: BP 115/46; PULSE 64; TEMP 36.6; O2SAT 90
[2024-04-02 06:41] LABS: Basophils Percent Auto 0.3 % (0.2-2.0); Eosinophils Absolute Auto 0.3 10^3/uL (0.0-0.7); Eosinophils Percent Auto 3.5 % (0.9-7.0); Hematocrit 40.4 % (36.0-48.0); Hemoglobin 12.8 g/dL (12.0-16.0); Immature Granulocytes Abs Auto 0.07 10^3/uL (0.00-0.03); Immature Granulocytes Pct Auto 0.9 % (0.0-0.5); Lymphocytes Absolute Auto 2.3 10^3/uL (1.2-3.8); Lymphocytes Percent Auto 31.4 % (20.5-60.0); Mean Corpuscular HGB Conc 31.7 g/dL (29.9-35.2); Mean Corpuscular Hemoglobin 26.7 pg (26.7-34.0); Mean Corpuscular Volume 84.2 fL (81.0-99.0); Mean Platelet Volume 11.6 fL (9.5-13.5); Monocytes Absolute Auto 0.8 10^3/uL (0.3-0.8); Monocytes Percent Auto 10.2 % (1.7-12.0); Neutrophils Percent Auto 53.7 % (43.0-75.0); Platelet Count 211 10^3/uL (150-450); Red Cell Distribution Width 15.5 % (11.0-15.0); White Blood Count 7.5 10^3/uL (4.0-11.0)
[2024-04-02 08:00] VITALS: PULSE 88
[2024-04-02 08:18] LABS: Alanine Aminotransferase 10 U/L (14-59); Albumin Globulin Ratio 0.7; Albumin Level 2.5 g/dL (3.4-5.0); Alkaline Phosphatase 111 U/L (46-116); Anion Gap 11.2; Aspartate Amino Transferase 11 U/L (15-37); BUN Creatinine Ratio 26.8; Bilirubin Total 0.4 mg/dL (0.2-1.0); Calcium 9.2 mg/dL (8.5-10.1); Carbon Dioxide 18.8 mmol/L (21.0-32.0); Chloride 108 mmol/L (98-107); Estimated GFR (African America >60 (>=60); Estimated GFR (Non-African Ame 57 (>=60); Globulin 3.4 g/dL; Glucose 205 mg/dL (74-106); Sodium 134 mmol/L (136-145); Total Protein 5.9 g/dL (6.4-8.2)
[2024-04-02] MEDS: INSULIN ASPART 300 UNIT/3 ML PEN SUBQ (09:04)
[2024-04-02] MEDS: DOCUSATE SODIUM 100 MG CAPSULE PO (09:48)
[2024-04-02] MEDS: CANAGLIFLOZIN 100 MG TABLET 300 MG PO (09:48)
[2024-04-02] MEDS: CLOPIDOGREL BISULFATE 75 MG TABLET PO (09:48)
[2024-04-02] MEDS: METOPROLOL SUCCINATE 50 MG TAB.ER.24H PO (09:48)
[2024-04-02] MEDS: ASPIRIN 81 MG TABLET.DR PO (09:48)
[2024-04-02] MEDS: SERTRALINE HCL 50 MG TABLET PO (09:48)
[2024-04-02] MEDS: AMLODIPINE BESYLATE 5 MG TABLET 10 MG PO (09:48)
[2024-04-02] MEDS: BUSPIRONE HCL 10 MG TABLET PO (09:48)
[2024-04-02] MEDS: SPIRONOLACTONE 25 MG TABLET 12.5 MG PO (09:49)
[2024-04-02] MEDS: NYSTATIN 15 GM POWDER 1 APPLIC TOPICAL (09:49)
[2024-04-02] MEDS: CHOLECALCIFEROL (VITAMIN D3) 25 MCG/1,000 UNITS TABLET PO (09:49)
--- NOTE | 2024-04-02 09:58 | SWNOTE1 ---
KAREEM spoke to [facility] this morning and pt is still all set for transport between 10:30-11:00. KAREEM stopped in to speak with pt. Pt was sitting up in bed and eating breakfast, more pleasant this morning. KAREEM advised pt again that this is her last chance with [facility], she voiced understanding. She stated she is going to be alright. KAREEM faxed over dc med rec, labs, vitals, and wound note from yesterday to spring. KAREEM took packet to med/surge floor. Pt is going to [facility] long term care administrator.
--- NOTE | 2024-04-02 10:18 | PC.NURSE ---
Tried to call report to [facility] at this time
--- NOTE | 2024-04-02 11:16 | CM.NOTE ---
09:[address] Pearson discussed with Kiara discharge plan of discharging today and going to [facility]. Kiara verbalized understanding.
--- NOTE | 2024-04-02 11:17 | PM.DS1 ---
DS: Providers Provider Date of admission: 03/31/24 18:29 Primary care physician: Non-Staff Physician, Consults: 04/01/24 08:29 Occupational Therapy Eval and Treat Routine Reason for consultation: Gen Weakness Has provider been notified: No Physical Therapy Eval and Treat Routine Reason for consultation: Gen Weakness Has provider been notified: No 04/01/24 09:54 Consult to Wound Care Routine Consulting Provider: Adolph Sharp Reason for consultation: L heel blister Has provider been notified: No DS: Diagnosis Discharge Diagnosis (1) Acute UTI: (2) Dehydration: (3) Weakness: (4) Type 2 diabetes mellitus with hyperglycemia: (5) Hypertension: (6) Chronic HFrEF (heart failure with reduced ejection fraction): (7) CAD (coronary artery disease): (8) Non-compliant patient: DS: Summary Hospital Course Hospital Course: Reason for admission: See ER note and H&P for details. 69 y/o female to ER with weakness and elevated BS. C/o increased fatigue and slept all day. Concerned not able to care for self and to ER. Noted to have excoriated skin and patient was covered in stool. WBC normal. Labs showed dehydration and urine showed UTI. Admitted for treatment. Hospital course: Started Rocephin for UTI and IV fluids. Gradually improved. rehabilitation services counselor consulted for placement options. Started PT/OT for weakness and resumed home medication. Labs improved. Remained afebrile and normal WBC. 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 Will take cefdinir x 10 days. Resume home medication as directed. Time Spent with Patient Time attestation: Total time spent providing and/or coordinating discharge services: Time spent: greater than 30 minutes Exam Constitutional Vital Signs, click to edit/add: Last Vital Signs Temp 98 F 04/02/24 05:46 Pulse 88 04/02/24 08:00 Resp 18 04/02/24 08:00 BP 115/46 L 04/02/24 05:46 Pulse Ox 90 L 04/02/24 05:46 O2 Del Method Room Air 04/02/24 05:46 Documenting provider has reviewed patient's vital signs: yes Common normals: no apparent distress, oriented x3 and alert HENMT Common normals: normocephalic Eye Common normals: PERRL and EOMs intact bilaterally Respiratory Common normals: normal respiratory effort and clear to auscultation bilaterally Cardio Common normals: regular rate, regular rhythm, no gallops, no murmurs and no rub GI Common normals: Normal to inspection, nondistended, normoactive bowel sounds present and non-tender Extremity Common normals: no pedal edema DS: Data Data Completed and Pending Labs on day of discharge: Labs from last 24 hours 04/02/24 04/01/24 06:25 13:30 WBC 7.5 RBC 4.80 Hgb 12.8 Hct 40.4 MCV 84.2 MCH 26.7 MCHC 31.7 RDW 15.5 H Plt Count 211 MPV 11.6 Neut % (Auto) 53.7 Lymph % (Auto) 31.4 [place] % (Auto) 10.2 Eos % (Auto) 3.5 Baso % (Auto) 0.3 Neut # (Auto) 4.0 Lymph # (Auto) 2.3 [place] # (Auto) 0.8 Eos # (Auto) 0.3 Baso # (Auto) 0.0 Abs Immat Gran (auto) 0.07 H Imm/Tot Granulo (auto) 0.9 H Sodium 134 L Potassium 4.0 Chloride 108 H Carbon Dioxide 18.8 L Anion Gap 11.2 BUN 26.0 H Creatinine 0.97 Est GFR ( Amer) >60 Est GFR (Non-Af Amer) 57 L BUN/Creatinine Ratio 26.8 Glucose 205 H Calcium 9.2 Magnesium 2.0 Total Bilirubin 0.4 AST 11 L ALT 10 L Alkaline Phosphatase 111 Total Protein 5.9 L Albumin 2.5 L Globulin 3.4 Albumin/Globulin Ratio 0.7 POC Glucose 418 H Preliminary micro results at discharge 03/31/24 17:00 Urine Culture - Preliminary Urine,Clean Catch Enterococcus faecalis Escherichia coli Proteus penneri Discharge Plan Discharge Disposition: Xfer LTC Condition: Good Discharge Medications: New cefdinir 300 mg capsule 300 mg PO BID 10 Days Qty: 20 0RF fluconazole [Diflucan] 200 mg tablet 200 mg PO DAILY Qty: 7 0RF Continued amlodipine 10 mg tablet 10 mg PO DAILY dapagliflozin propanediol [Farxiga] 10 mg tablet 10 mg PO DAILY atorvastatin [Lipitor] 40 mg tablet 40 mg PO QPM metoprolol succinate [Toprol XL] 50 mg tablet extended release 24 hr 50 mg PO DAILY Patient Comments: HOLD FOR SBP < 100 OR PULSE < 60 insulin lispro [Humalog KwikPen Insulin] 100 unit/mL insulin pen 2 - 12 sliding scale dose subcut ACHS Rx Instructions: 150-199 2 UNITS 200-249 4 UNITS 250-299 6 UNITS 300-349 8 UNITS 350-399 10 UNITS 400-449 12 UNITS >450 CALL docusate sodium [Colace] 100 mg capsule 100 mg PO .QHS loperamide 2 mg capsule 2 mg PO Q6H PRN (Reason: loose stool) melatonin 3 mg capsule 3 mg PO .QHS pantoprazole [Protonix] 40 mg tablet,delayed release (DR/EC) 40 mg PO DAILY ergocalciferol (vitamin D2) 1,250 mcg (50,000 unit) capsule 50,000 unit PO .SATURDAY gabapentin 300 mg capsule 300 mg PO Q8H insulin glargine [Lantus Solostar U-100 Insulin] 100 unit/mL (3 mL) insulin pen 55 unit SUBCUT DAILY clopidogrel 75 mg tablet 75 mg PO DAILY buspirone 10 mg tablet 10 mg PO BID cholecalciferol (vitamin D3) 25 mcg (1,000 unit) capsule 25 mcg PO DAILY donepezil 10 mg tablet 10 mg PO .QHS Trulicity 1.5 mg/0.5 mL pen injector 1.5 mg SUBCUT .QWEEKLY Rx Instructions: ON FRIDAYS sertraline 50 mg tablet 50 mg PO DAILY spironolactone 25 mg tablet 12.5 mg PO QAM aspirin 81 mg tablet,chewable 81 mg PO DAILY Print Language: Arabic 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
== END 2024-04-02 10:14 ==
LOC: ER 18:13 → MS 18:53
PROVIDERS: Nurse Practitioner; Physician Assistant; Registered Nurse; Admitting Provider Family Medicine; Emergency Provider Emergency Medicine; Visit Provider Family Medicine
DX: N39.0 Urinary tract infection, site not specified (principal); E86.0 Dehydration; R53.1 Weakness; E11.65 Type 2 diabetes mellitus with hyperglycemia; I11.0 Hypertensive heart disease with heart failure; I50.22 Chronic systolic (congestive) heart failure; I25.10 Atherosclerotic heart disease of native coronary artery without angina pectoris; Z91.148 Patient's other noncompliance with medication regimen for other reason; F32.A Depression, unspecified; F17.200 Nicotine dependence, unspecified, uncomplicated; E83.42 Hypomagnesemia; B37.49 Other urogenital candidiasis; L97.429 Non-pressure chronic ulcer of left heel and midfoot with unspecified severity; F03.C0 Unspecified dementia, severe, without behavioral disturbance, psychotic disturbance, mood disturbance, and anxiety; K21.9 Gastro-esophageal reflux disease without esophagitis; B96.20 Unspecified Escherichia coli [E. coli] as the cause of diseases classified elsewhere; B95.2 Enterococcus as the cause of diseases classified elsewhere; B96.4 Proteus (mirabilis) (morganii) as the cause of diseases classified elsewhere; Z89.432 Acquired absence of left foot; Z79.4 Long term (current) use of insulin; Z95.1 Presence of aortocoronary bypass graft; Z79.899 Other long term (current) drug therapy
CPT/HCPCS: 36415; 71045; 80053; 80061; 80320; 81001; 82009; 82550; 82800; 82948; 83605; 83690; 83735; 83880; 84100; 84145; 84443; 84484; 85025; 85610; 87040; 87086; 87150; 87186; 93005; 94761; 96361; 96365; 96366; 96367; 96368; 96372; 96376; 97162; 97165; 99285; G0378; J0696; J1650; J3475

== ENCOUNTER 2024-11-11 09:14 | Outpatient (OUT) | payer MEDICARE, SELFPAY ==
--- NOTE | 2024-11-11 | XR_ITS ---
[facility] [place] [id number] Patient Name: EMILY HARO MRN: [id number] date: 1955 Sex: F Assigned Patient Location: Current Patient Location: Accession/Order Number: [id number] Exam Date: 11/11/2024 12:03 Report Date: 11/11/2024 12:07 At the request of: ANEESH BARKER Procedure: XR foot RT min 3V RIGHT FOOT - 3 views CLINICAL DATA: Wound at the second and third toes. COMPARISON: 07/28/2023 AP, lateral and oblique views were obtained. There is no acute fracture or dislocation. No obvious bony destruction is noted within limits of positioning of the toes. There is spurring at the dorsal tarsals. Calcaneal spurs are present. There is no significant soft tissue swelling. Atherosclerotic disease is visualized.. XR/XR foot RT min 3V IMPRESSION: NO ACUTE BONY FINDINGS. Impression dictated by: Rosalee Vargas M.D.11/11/2024 12:07 PM Dictation Location: [facility] Electronically authenticated by: [id number] Y Date: 11/11/2024 12:07
== END 2024-11-11 09:15 | disposition home or self-care (01) ==
LOC: WC 09:14
PROVIDERS: Visit Provider Physician Assistant
DX: E11.621 Type 2 diabetes mellitus with foot ulcer (principal); L97.512 Non-pressure chronic ulcer of other part of right foot with fat layer exposed
CPT/HCPCS: 73630; G0463

== ENCOUNTER 2024-12-08 08:19 | Outpatient (OUT) | payer MEDICARE, SELFPAY ==
--- NOTE | 2024-12-08 08:30 | CA_ITS ---
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 Interpretive Statements Summary of the findings: Right leg: IRENE= 1.49; TBI= 0.47. Doppler waveforms demonstrate monophasic flow at the posterior tibial and dorsalis pedis arteries. Left leg: IRENE= 1.40; TBI= 0. Doppler waveforms demonstrate no significant flow at the posterior tibial artery and monophasic flow in the dorsalis pedis artery. Segmental pressures: Segmental pressures show calcific right dorsalis pedis and significant right sided infrapopliteal disease and no left sided posterior tibialis flow. Pulse volume recordings: PVRs at the high thigh, below knee levels show normal waveforms; at the ankle levels show dampnened waveforms. Conclusion: Right and left ankle-brachial indices are suggestive of calcified right sided below knee vessel and normal overall left sided arterial flow at rest. Toe-brachial indices are suggestive of PAD bilaterally. Segmental pressures show calcific right dorsalis pedis and significant right sided infrapopliteal disease and no left sided posterior tibialis flow. Pulse volume recordings indicate reduced resting distal arterial flow. The study shows evidence of mainly distal PAD involving the right infrapopliteal arteries and with likely occluded left posterior tibialis artery. Electronically Signed On 12-08-2024 19:23:53 EDT by JUANPABLO PALMER M.D.
--- OUTSIDE RECORDS SUMMARY | 2024-12-08 08:36 | XMS_ITS | CCD ---
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 Name Role Phone CAMERON LAURENT Unavailable Unavailable [...] Sonya Posada CNP Primary Care Provider Carlo MONTERROSO - Sonya DAVIS Primary Care Provider Amanda PRODUCTION SUPERVISOR OFF SHIFT-GEORGINA Dailey Attending Provider FANY SAHU Attending Unavailable CHANDNI GREEN Referring [...] / HYDROcodone Drug Allergy 3 Nausea [facility] Repository (2 sources) Adhesive agent; Translations: [ADHESIVE] Propensity to adverse reactions (disorder) 7 [facility] (1 source) PLASTIC BANDAGE TAMARA Drug allergy (disorder) 9 [facility] (2 sources) Adhesive bandage Drug allergy (disorder) 3 [facility] Repository (4 sources) Adhesive Tape Allergy to substance 3 [facility] (4 sources) Bandaids Allergy to substance 3 [facility] (2 sources) Acetaminophen / HYDROcodone; Translations: [HYDROCODONE-ACET AMINOPHEN] Drug Allergy 7 Nausea And Vomiting [facility] (1 source) HYDROcodone; Translations: [HYDROCODONE BITARTRATE] Drug Allergy 1 [facility] Repository NEGATED: Highlighted row has been ruled out! 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 CURRENT USE OF INSULIN] Onset: 01-14-2023 Episodic Other aftercare (1 source) Other oysterman (current) drug therapy; Translations: [OTH FUNERAL SALES MANAGER CURRENT DRUG THERAPY] Onset: 01-14-2023 Episodic Other aftercare (1 source) care home (current) use of aspirin; Translations: [FUNERAL SALES MANAGER CURRENT USE OF ASPIRIN] Onset: 11-15-2022 Episodic Other aftercare (1 source) care home (current) use of oral hypoglycemic drugs; Translations: [SKILLED NURSING USE ORAL HYPOGLYCEMIC DX] Onset: 11-15-2022 Episodic [...] Range Facility Office Visiton 06-12-2023 Follow-up visit [id number] Rylan Blanc 1955 F Date Provider Department Center 06[facility]12[facility]2023 [facility] No family history on file Level of Service:19476 ND OFFICE/OUTPATIENT ESTABLISHED MOD MDM 30-39 MIN Normal [facility] Basic Metabolic Panelon 04-24 Anion gap [Moles/Vol] 15.7 mmol/L High 6.0-15.0 [facility] Comment on above: Performed By: #### B MP #### [facility] [address] Calcium [Mass/Vol] 9.2 mg/dL Normal 8.6-10.3 [facility] Comment on above: Result Comment: PERF ORMED BY: [place] [address] PATHOLOGIST CREDIT ADMINISTRATION OFFICER WEN LOBO M.D. Performed By: #### B MP #### [place] [address] [place] Chloride [Moles/Vol] 107 mmol/L Normal 98-107 [facility] Comment on above: Performed By: #### B MP #### [address] CO2 [Moles/Vol] 20.2 mmol/L Low 21.0-31.0 [facility] Comment on above: Performed By: #### B MP #### [address] Creatinine [Mass/Vol] 1.02 mg/dL Normal 0.60-1.20 [facility] Comment on above: Performed By: #### B MP #### [place] [address] [place] GFR/1.73 sq M.predicted MDRD (S/P/Bld) [Vol rate/Area] mL/min/{1.73_m2} Normal [facility] Comment on above: Performed By: #### B MP #### [place] [address] [place] Glucose [Mass/Vol] 178 mg/dL High 70-100 [facility] Comment on above: Result Comment: [place] Glucose Reference Range is dependent on time and content of last meal. Glucose of more than 200 mg/dL in a nonstressed, ambulatory subject supports the diagnosis of Diabetes Mellitus. ADA recommended reference range Performed By: #### B MP #### [address] Potassium [Moles/Vol] 4.9 mmol/L Normal 3.5-5.1 [facility] Comment on above: Performed By: #### B MP #### [place] [address] [place] Sodium [Moles/Vol] 138 mmol/L Normal 136-145 [facility] Comment on above: Performed By: #### B MP #### [facility] [address] [place] [address] [place] Urea nitrogen [Mass/Vol] 23 mg/dL Normal 7-25 [facility] Comment on above: Performed By: #### B MP #### [facility] [address] [place] [address] [place] Calcium [Mass/volume] in Ser um or PlasmaOrdered By: Angy Patel on 05-14-2023 Calcium [Mass/Vol] 9.2 mg/dL 8.6-10.3 [facility] Carbon dioxide, total [Moles /volume] in Serum or PlasmaOrdered By: Angy Patel on 05-14-2023 CO2 [Moles/Vol] 20.2 mmol/L 21.0-31.0 [facility] Chloride [Moles/volume] in S elizabeth or PlasmaOrdered By: Angy Patel on 05-14-2023 Chloride [Moles/Vol] 107 mmol/L 98-107 [facility] Creatinine [Mass/volume] in Serum or PlasmaOrdered By: Angy Patel on 05-14-2023 Creatinine [Mass/Vol] 1.02 mg/dL 0.60-1.20 [facility] Glucose [Mass/volume] in Ser um or PlasmaOrdered By: Angy Patel on 05-14-2023 Glucose [Mass/Vol] 178 mg/dL 70-100 [facility] Comment on above: ADA recommended refe rence rangeRandom Glucose Reference Range is dependent on time and content of last meal. Glucose of more than 200 mg/dL in a nonstressed, ambulatory subject supports the diagnosis of Diabetes Mellitus. No Panel InformationOrdered By: Angy Patel on 05-14-2023 Estimated GFR (CKD-EPI) > 60.0 mL/Min [facility] Creatinine Clearance (Chem N/A [facility] Potassium [Moles/volume] in Serum or PlasmaOrdered By: Angy Patel on 05-14-2023 Potassium [Moles/Vol] 4.9 mmol/L 3.5-5.1 [facility] Serum or plasma anion gap de terminationOrdered By: Angy Patel on 05-14-2023 Anion gap [Moles/Vol] 15.7 mmol/L 6.0-15.0 [facility] Sodium [Moles/volume] in Ser um or PlasmaOrdered By: Angy Patel on 05-14-2023 Sodium [Moles/Vol] 138 mmol/L 136-145 [facility] Urea nitrogen [Mass/volume] in Serum or PlasmaOrdered By: Angy Patel on 05-14-2023 Urea nitrogen [Mass/Vol] 23 mg/dL 7-25 [facility] 30on 05-06-2023 30 The patient is Moder ately Stable - Low risk of patient condition declining or worsening The patient's goals for the shift include Rest/Comfort The clinical goals for the shift include VSS and Discharge Planning Patient is being discharged [facility]. Attempted to call report but got a voicemail for [place]. Left my name and phone number. Will attempt to call back in 30 minutes. Report was given to [facility]. [facility] 30 Daily Case Managemen t Update Multidisciplinary rounds have been completed. Barriers to Discharge: Awaiting pre-cert to [facility]. Diet: Dietary Orders (From admission, onward) Start [...] OT Six Click Score: 18 PT Recommendations: FDC facility placement OT Recommendations: FDC facility placement New Consults: Consult Orders (From admission, onward) Start Ordered 04/26/23 1357 Inpatient consult to Cardiology Once Specialty: Cardiology Provider: (Not yet assigned) Question Answer Comment Consulting Group CARDIOLOGY TEAM Reason for Consult? NSTEMI, direct transfer, communicated earlier CYLINDER TESTER, on heparin gtt Level of Consultation Consultation and Management 04/26/23 1357 Therapy Orders (From admission, onward) Start Ordered 04/27/23 1307 PT eval and treat Until therapy completed Question: Reason for PT? Answer: eval 04/27/23 1306 04/27/23 1307 OT eval and treat Until therapy completed Question: Reason for OT? Answer: eval 04/27/23 1306 Normal [facility] 30 The patient is Moder ately Stable - Low risk of patient condition declining or worsening The patient's goals for the shift include TED The clinical goals for the shift include VSS Pt alert but confused. Able to feed self with set up. Incontinent of bowel/bladder. Awaiting SNF placement. Normal [facility] POCT GLUCOSE METER UNSOLICIT ED RESULTSon 05-06-2023 Glucose [Mass/Vol] 237 mg/dL High 70-105 [facility] Comment on above: Order Comment: Waive d Testing in the ED is performed under the ED CLIA certificate #[id number]. Result Comment: [email or web address] Performed By: #### L [id number] #### [facility] ([facility]) [address] [place] [address] Glucose [Mass/Vol] 137 mg/dL High 70-105 [facility] Comment on above: Order Comment: Waive d Testing in the ED is performed under the ED CLIA certificate #[id number]. Result Comment: [email or web address] Performed By: #### L [id number] #### [facility] ([facility]) [address] [place] [address] 30on 05-05-2023 30 The patient is Moder [...] and behaviors that affect risk of falls [place] fall precautions as indicated by assessment Educate [...] (Taken 05/05/2023729) (more content not included)... Normal [facility] POCT GLUCOSE METER UNSOLICIT ED RESULTSon 05-05-2023 Glucose [Mass/Vol] 261 mg/dL High 70-105 [facility] Comment on above: Order Comment: Waive d Testing in the ED is performed under the ED CLIA certificate #[id number]. Result Comment: [email or web address] Performed By: #### L [id number] #### [facility] ([facility]) [address] [place] [address] Glucose [Mass/Vol] 136 mg/dL High 70-105 [facility] Comment on above: Order Comment: Waive d Testing in the ED is performed under the ED CLIA certificate #[id number]. Result Comment: [email or web address] Performed By: #### L [id number] ####[facility] (BEAKER)[address] [place] [address] Glucose [Mass/Vol] 255 mg/dL High 70-105 [facility] Comment on above: Order Comment: Waive d Testing in the ED is performed under the ED CLIA certificate #[id number]. Result Comment: [email or web address] Performed By: #### L [id number] #### [facility] ([facility]ER) [address] [place] [address] Glucose [Mass/Vol] 194 mg/dL High 70-105 [facility] Comment on above: Order Comment: Waive d Testing in the ED is performed under the ED CLIA certificate #[id number]. Result Comment: [email or web address] Performed By: #### L [id number] #### [facility] ([facility]) [address] [facility] [place] [address] 30on 05-04-2023 30 The patient is Moder [...] and behaviors that affect risk of falls [place] fall precautions as indicated by assessment Educate [...] and prevent overall improvement and discharge Normal [facility] 30 The patient is Moder ately [...] and behaviors that affect risk of falls [place] fall precautions as indicated by assessment Educate [...] and behaviors that affect risk of falls [place] fall precautions as indicated by assessment Educate [...] by Dominick Velázquez (more content not included)... [facility] BASIC METABOLIC PANELon 08- Anion gap [Moles/Vol] 10 mmol/L Normal 7-20 [facility] Comment on above: Performed By: #### L [id number] #### [facility] ([facility]) [address] [place] [address] Calcium [Mass/Vol] 9.4 mg/dL Normal 8.6-10.3 [facility] Comment on above: Performed By: #### L [id number] #### [facility] ([facility]) [address] [place] [address] Chloride [Moles/Vol] 108 mmol/L High 98-107 [facility] Comment on above: Performed By: #### L [id number] #### [facility] ([facility]) [address] [place] [address] CO2 [Moles/Vol] 24 mmol/L Normal 21-31 [facility] Comment on above: Performed By: #### L [id number] #### [facility] ([facility]) [address] [place] [address] Creatinine [Mass/Vol] 0.82 mg/dL Normal 0.60-1.20 [facility] Comment on above: Performed By: #### L [id number] #### [facility] ([facility]) [address] [place] [address] GLOMERULAR FILTRATION RATE ML/MIN/1.73 SQ M.PREDICTED 78.4 mL/min/1.73m*2 Normal >60.0 [facility] Comment on above: Result Comment: [facility]???s estimated glomerular filtration rate (eGFR) will [...] individuals. Performed By: #### L [id number] #### [facility] ([facility]) [address] [place] [address] Glucose [Mass/Vol] 75 mg/dL Normal 70-100 [facility] Comment on above: Performed By: #### L [id number] #### [facility] ([facility]) [address] [place] [address] Potassium [Moles/Vol] 4.0 mmol/L Normal 3.5-5.1 [facility] Comment on above: Performed By: #### L [id number] #### [facility] ([facility]) [address] [place] [address] Sodium [Moles/Vol] 138 mmol/L Normal 136-145 [facility] Comment on above: Performed By: #### L [id number] #### [facility] ([facility]) [address] [place] [address] Urea nitrogen [Mass/Vol] 18 mg/dL Normal 7-25 [facility] Comment on above: Performed By: #### L [id number] #### [facility] ([facility]) [address] [place] [address] UREA NITROGEN/CREATININE (MASS RATIO) IN SER/PLAS 22.0 Normal [facility] Comment on above: Performed By: #### L [id number] #### [facility] ([facility]) [address] [place] [address] CBCon 05-04-2023 Erythrocyte distribution width (RBC) [Ratio] 13.7 % Normal 11.5-15.0 [facility] Comment on above: Performed By: #### L [id number] #### [facility] ([facility]) [address] [place] [address] ERYTHROCYTE MEAN CORPUSCULAR HEMOGLOBIN CONCENTRATION (G/DL) BY AUTOMATED 32.7 g/dL Normal 32.0-35.0 [facility] Comment on above: Performed By: #### L [id number] #### [facility] ([facility]) [address] [place] [address] Hematocrit (Bld) [Volume fraction] 39.7 % Normal 36.0-48.0 [facility] Comment on above: Performed By: #### L [id number] #### [facility] ([facility]) [address] [place] [address] Hemoglobin (Bld) [Mass/Vol] 13.0 g/dL Normal 12.0-15.0 [facility] Comment on above: Performed By: #### L [id number] #### [facility] ([facility]) [address] [place] [address] MCH (RBC) [Entitic mass] 28.3 pg Normal 27.0-33.0 [facility] Comment on above: Performed By: #### L [id number] #### [facility] ([facility]) [address] [place] [address] MCV (RBC) [Entitic vol] 86.3 fL Normal 82.0-98.0 [facility] Comment on above: Performed By: #### L [id number] #### [facility] ([facility]) [address] [place] [address] PLATELETS (10*3/UL) IN BLOOD AUTOMATED COUNT 383 10*3/uL Normal 150-400 [facility] Comment on above: Performed By: #### L [id number] #### [facility] ([facility]) [address] [place] [address] RBC (Bld) [#/Vol] 4.60 10*6/uL Normal 3.80-5.00 [facility] Comment on above: Performed By: #### L [id number] #### [facility] ([facility]) [address] [place] [address] WBC (Bld) [#/Vol] 8.84 10*3/uL Normal 4.00-10.60 [facility] Comment on above: Performed By: #### L [id number] #### [facility] ([facility]) [address] [place] [address] MAGNESIUMon 05-04-2023 Magnesium [Mass/Vol] 1.5 mg/dL Low 1.9-2.7 [facility] Comment on above: Performed By: #### L [id number] #### [facility] ([facility]) [address] [place] [address] POCT GLUCOSE METER UNSOLICIT ED RESULTSon 05-04-2023 Glucose [Mass/Vol] 181 mg/dL High 70-105 [facility] Comment on above: Order Comment: Waive d Testing in the ED is performed under the ED CLIA certificate #[id number]. Result Comment: [email or web address] Performed By: #### L [id number] #### [facility] ([facility]) [address] [place] [address] Glucose [Mass/Vol] 141 mg/dL High 70-105 [facility] Comment on above: Order Comment: Waive d Testing in the ED is performed under the ED CLIA certificate #[id number]. Result Comment: [email or web address] Performed By: #### L [id number] #### [facility] ([facility]) [address] [place] [address] Glucose [Mass/Vol] 189 mg/dL High 70-105 [facility] Comment on above: Order Comment: Waive d Testing in the ED is performed under the ED CLIA certificate #[id number]. Result Comment: [email or web address] Performed By: #### L [id number] #### [facility] ([facility]) [address] [place] [address] Glucose [Mass/Vol] 84 mg/dL Normal 70-105 [facility] Comment on above: Order Comment: Waive d Testing in the ED is performed under the ED CLIA certificate #[id number]. Result Comment: [email or web address] Performed By: #### L [id number] #### [facility] ([facility]) [address] [place] [address] TROPONIN Ion 05-04-2023 Troponin I.cardiac [Mass/Vol] 0.04 ng/mL Normal 0.00-0.04 [facility] Comment on above: Performed By: #### L [id number] #### [facility] ([facility]) [address] [place] [address] 30on 05-03-2023 30 The patient is Moder [...] and behaviors that affect risk of falls [place] fall precautions as indicated by assessment Educate [...] and prevent overall improvement and discharge Normal [facility] 30 The patient is Moder ately [...] and behaviors that affect risk of falls [place] fall precautions as indicated by assessment Educate [...] Progressing Flowshe (more content not included)... Normal [facility] 30 Daily Case Managemen t Update Multidisciplinary rounds have been completed. 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 cath today Diet: Dietary Orders (From admission, onward) Start Ordered 05/03/23901 Diet NPO Diet effective now Comments: Sips with medications 05/03/23901 Physician Expected Discharge Date: 05/04/2023 Discharge Delays: Awaiting accepting facility [113] Waiting on discharge facility authorization [108] PT Six Click Score: 16 OT Six Click Score: 15 PT Recommendations: FDC facility placement OT Recommendations: FDC facility placement New Consults: Consult Orders (From admission, onward) Start Ordered 04/26/23 1357 Inpatient consult to Cardiology Once Specialty: Cardiology Provider: (Not yet assigned) Question Answer Comment Consulting Group CARDIOLOGY TEAM Reason for Consult? NSTEMI, direct transfer, communicated earlier CYLINDER TESTER, on heparin gtt Level of Consultation Consultation and Management 04/26/23 1357 Therapy Orders (From admission, onward) Start Ordered 04/27/23 1307 PT eval and treat Until therapy completed Question: Reason for PT? Answer: eval 04/27/23 1306 04/27/23 1307 OT eval and treat Until therapy completed Question: Reason for OT? Answer: eval 04/27/23 1306 Normal [facility] 30 The patient is Moder ately [...] and behaviors that affect risk of falls [place] fall precautions as indicated by assessment Educate [...] and prevent overall improvement and discharge Normal [facility] CBCon 05-03-2023 Erythrocyte distribution width (RBC) [Ratio] 13.5 % Normal 11.5-15.0 [facility] Comment on above: Performed By: #### L [id number] #### [facility] ([facility]) [address] [place] [address] ERYTHROCYTE MEAN CORPUSCULAR HEMOGLOBIN CONCENTRATION (G/DL) BY AUTOMATED 32.0 g/dL Normal 32.0-35.0 [facility] Comment on above: Performed By: #### L [id number] #### [facility] ([facility]) [address] [place] [address] Hematocrit (Bld) [Volume fraction] 40.6 % Normal 36.0-48.0 [facility] Comment on above: Performed By: #### L [id number] #### [facility] ([facility]) [address] [place] [address] Hemoglobin (Bld) [Mass/Vol] 13.0 g/dL Normal 12.0-15.0 [facility] Comment on above: Performed By: #### L [id number] #### [facility] ([facility]) [address] [place] [address] MCH (RBC) [Entitic mass] 27.9 pg Normal 27.0-33.0 [facility] Comment on above: Performed By: #### L [id number] #### [facility] ([facility]) [address] [place] [address] MCV (RBC) [Entitic vol] 87.1 fL Normal 82.0-98.0 [facility] Comment on above: Performed By: #### L [id number] #### [facility] ([facility]) [address] [place] [address] PLATELETS (10*3/UL) IN BLOOD AUTOMATED COUNT 298 10*3/uL Normal 150-400 [facility] Comment on above: Performed By: #### L [id number] #### [facility] ([facility]) [address] [place] [address] RBC (Bld) [#/Vol] 4.66 10*6/uL Normal 3.80-5.00 [facility] Comment on above: Performed By: #### L [id number] #### [facility] ([facility]) [address] [place] [address] WBC (Bld) [#/Vol] 7.80 10*3/uL Normal 4.00-10.60 [facility] Comment on above: Performed By: #### L [id number] #### [facility] ([facility]) [address] [place] [address] POCT GLUCOSE METER UNSOLICIT ED RESULTSon 05-03-2023 Glucose [Mass/Vol] 87 mg/dL Normal 70-105 [facility] Comment on above: Order Comment: Basel ine aPTT before initiating heparin infusion. Result Comment: [email or web address] Performed By: #### L [id number] #### [facility] ([facility]) [address] [place] [address] Glucose [Mass/Vol] 366 mg/dL High 70-105 [facility] Comment on above: Order Comment: Waive d Testing in the ED is performed under the ED CLIA certificate #[id number]. Result Comment: [email or web address] Performed By: #### L [id number] #### [facility] ([facility]) [address] [place] [address] Glucose [Mass/Vol] 236 mg/dL High 70-105 [facility] Comment on above: Order Comment: Waive d Testing in the ED is performed under the ED CLIA certificate #[id number]. Result Comment: [email or web address] [email or web address] Performed By: #### L [id number] ####[facility] (BEAKER)[address] [place] [address] Glucose [Mass/Vol] 161 mg/dL High 70-105 [facility] Comment on above: Order Comment: Waive d Testing in the ED is performed under the ED CLIA certificate #[id number]. Result Comment: [email or web address] [email or web address] Performed By: #### L [id number] ####[facility] ([facility])[address] [place] [address] 30on 05-02-2023 30 The patient is Moder [...] urinary retention Outcome: Adequate for Discharge Normal [facility] BASIC METABOLIC PANELon 08- Anion gap [Moles/Vol] 11 mmol/L Normal 7-20 [facility] Comment on above: Performed By: #### L [id number] #### [facility] ([facility]) [address] [place] [address] Calcium [Mass/Vol] 9.3 mg/dL Normal 8.6-10.3 [facility] Comment on above: Performed By: #### L [id number] #### [facility] ([facility]) [address] [place] [address] Chloride [Moles/Vol] 108 mmol/L High 98-107 [facility] Comment on above: Performed By: #### L [id number] #### [facility] ([facility]) [address] [place] [address] CO2 [Moles/Vol] 26 mmol/L Normal 21-31 [facility] Comment on above: Performed By: #### L [id number] #### [facility] ([facility]) [address] [place] [address] Creatinine [Mass/Vol] 0.88 mg/dL Normal 0.60-1.20 [facility] Comment on above: Performed By: #### L [id number] #### [facility] ([facility]) [address] [place] [address] GLOMERULAR FILTRATION RATE ML/MIN/1.73 SQ M.PREDICTED 72.0 mL/min/1.73m*2 Normal >60.0 [facility] Comment on above: Result Comment: [facility] [facility]???s estimated glomerular filtration rate (eGFR) will [...] group of individuals. Performed By: #### L [id number] #### [facility] ([facility]) [address] [place] [address] Glucose [Mass/Vol] 197 mg/dL High 70-100 [facility] Comment on above: Performed By: #### L [id number] #### [facility] ([facility]) [address] [place] [address] Potassium [Moles/Vol] 3.9 mmol/L Normal 3.5-5.1 [facility] Comment on above: Performed By: #### L [id number] #### [facility] ([facility]) [address] [place] [address] Sodium [Moles/Vol] 141 mmol/L Normal 136-145 [facility] Comment on above: Performed By: #### L [id number] #### [facility] ([facility]) [address] [place] [address] Urea nitrogen [Mass/Vol] 24 mg/dL Normal 7-25 [facility] Comment on above: Performed By: #### L [id number] #### [facility] ([facility]) [address] [place] [address] UREA NITROGEN/CREATININE (MASS RATIO) IN SER/PLAS 27.3 Normal [facility] Comment on above: Performed By: #### L [id number] #### [facility] ([facility]) [address] [place] [address] MAGNESIUMon 05-02-2023 Magnesium [Mass/Vol] 1.5 mg/dL Low 1.9-2.7 [facility] Comment on above: Performed By: #### L [id number] ####[facility] ([facility])[address] [place] [facility] [address] POCT GLUCOSE METER UNSOLICIT ED RESULTSon 05-02-2023 Glucose [Mass/Vol] 204 mg/dL High 70-105 [facility] Comment on above: Order Comment: Basel ine aPTT before initiating heparin infusion. Result Comment: [email or web address] Performed By: #### L [id number] #### [facility] ([facility]) [address] [place] [address] Glucose [Mass/Vol] 372 mg/dL High 70-105 [facility] Comment on above: Order Comment: Waive d Testing in the ED is performed under the ED CLIA certificate #[id number]. Result Comment: [email or web address] [email or web address] Performed By: #### L [id number] #### [facility] ([facility]) [address] [place] [address] Glucose [Mass/Vol] 338 mg/dL High 70-105 [facility] Comment on above: Order Comment: Waive d Testing in the ED is performed under the ED CLIA certificate #[id number]. Result Comment: [email or web address] [email or web address] Performed By: #### L [id number] #### [facility] ([facility]) [address] [place] [address] Glucose [Mass/Vol] 144 mg/dL High 70-105 [facility] Comment on above: Order Comment: Waive d Testing in the ED is performed under the ED CLIA certificate #[id number]. Result Comment: [email or web address] [email or web address] Performed By: #### L [id number] #### [facility] ([facility]) [address] [place] [address] 30on 05-01-2023 30 Daily Case Managemen t [...] OT Six Click Score: 15 PT Recommendations: [facility] facility placement OT Recommendations: [facility] facility placement New Consults: Consult Orders (From admission, onward) Start Ordered 04/26/23 1357 Inpatient consult to Cardiology Once Specialty: Cardiology Provider: (Not yet assigned) Question Answer Comment Consulting Group CARDIOLOGY TEAM Reason for Consult? NSTEMI, direct transfer, communicated earlier CYLINDER TESTER, on heparin gtt Level of Consultation Consultation and Management 04/26/23 1357 Ancillary Consults (From admission, onward) Start Ordered 04/29/23 1112 Inpatient consult to Social Work Once Provider: (Not yet assigned) Question Answer Comment Select all services needed for the patient [facility] (30 day convalescent stay) Please indicate [...] for OT? Answer: eval 04/27/23 1306 Normal [facility] 30 The patient is Moder ately [...] Absence of urinary retention Outcome: Progressing Normal [facility] BASIC METABOLIC PANELon 08-0 Anion gap [Moles/Vol] 11 mmol/L Normal 7-20 [facility] Comment on above: Performed By: #### L [id number] #### [facility] ([facility]) [address] [place] [address] Calcium [Mass/Vol] 9.1 mg/dL Normal 8.6-10.3 [facility] Comment on above: Performed By: #### L [id number] #### [facility] ([facility]) [address] [place] [address] Chloride [Moles/Vol] 108 mmol/L High 98-107 [facility] Comment on above: Performed By: #### L [id number] #### [facility] ([facility]) [address] [place] [address] CO2 [Moles/Vol] 23 mmol/L Normal 21-31 [facility] Comment on above: Performed By: #### L [id number] #### [facility] ([facility]) [address] [place] [address] Creatinine [Mass/Vol] 0.76 mg/dL Normal 0.60-1.20 [facility] Comment on above: Performed By: #### L [id number] #### [facility] ([facility]) [address] [place] [address] GLOMERULAR FILTRATION RATE ML/MIN/1.73 SQ M.PREDICTED 85.8 mL/min/1.73m*2 Normal >60.0 [facility] Comment on above: Result Comment: [facility]???s estimated glomerular filtration rate (eGFR) will [...] individuals. Performed By: #### L [id number] #### [facility] ([facility]) [address] [place] [address] Glucose [Mass/Vol] 204 mg/dL High 70-100 [facility] Comment on above: Performed By: #### L [id number] #### [facility] ([facility]) [address] [place] [address] Potassium [Moles/Vol] 4.1 mmol/L Normal 3.5-5.1 [facility] Comment on above: Performed By: #### L [id number] #### [facility] ([facility]) [address] [place] [address] Sodium [Moles/Vol] 138 mmol/L Normal 136-145 [facility] Comment on above: Performed By: #### L [id number] #### [facility] ([facility]) [address] [place] [address] Urea nitrogen [Mass/Vol] 26 mg/dL High 7-25 [facility] Comment on above: Performed By: #### L [id number] #### [facility] ([facility]) [address] [place] [address] UREA NITROGEN/CREATININE (MASS RATIO) IN SER/PLAS 34.2 Normal [facility] Comment on above: Performed By: #### L [id number] #### [facility] ([facility]) [address] [place] [address] CBCon 05-01-2023 Erythrocyte distribution width (RBC) [Ratio] 13.2 % Normal 11.5-15.0 [facility] Comment on above: Performed By: #### L [id number] ####[facility] ([facility])[address] [place] [address] ERYTHROCYTE MEAN CORPUSCULAR HEMOGLOBIN CONCENTRATION (G/DL) BY AUTOMATED 33.0 g/dL Normal 32.0-35.0 [facility] Comment on above: Performed By: #### L [id number] ####[facility] ([facility])[address] [place] [address] Hematocrit (Bld) [Volume fraction] 39.4 % Normal 36.0-48.0 [facility] Comment on above: Performed By: #### L [id number] ####[facility] ([facility])[address] [place] [address] Hemoglobin (Bld) [Mass/Vol] 13.0 g/dL Normal 12.0-15.0 [facility] Comment on above: Performed By: #### L [id number] ####[facility] ([facility])[address] [place] [address] MCH (RBC) [Entitic mass] 28.0 pg Normal 27.0-33.0 [facility] Comment on above: Performed By: #### L [id number] ####[facility] ([facility])[address] [place] [address] MCV (RBC) [Entitic vol] 84.9 fL Normal 82.0-98.0 [facility] Comment on above: Performed By: #### L [id number] ####[facility] ([facility])[address] [place] [address] PLATELETS (10*3/UL) IN BLOOD AUTOMATED COUNT 341 10*3/uL Normal 150-400 [facility] Comment on above: Performed By: #### L [id number] ####[facility] ([facility])[address] [place] [address] RBC (Bld) [#/Vol] 4.64 10*6/uL Normal 3.80-5.00 [facility] Comment on above: Performed By: #### L [id number] ####[facility] ([facility])[address] [place] [address] WBC (Bld) [#/Vol] 7.98 10*3/uL Normal 4.00-10.60 [facility] Comment on above: Performed By: #### L [id number] ####[facility] ([facility])[address] [place] [address] HPon 05-01-2023 HP ------ -- Attestation signed by Gaby Sanchez MD at 05/01/2023 3:08 PM Due to worsening in the patient's mental status, the cardiac catheterization will be deferred at this juncture. Decisions regarding timing will need to be made on a day-to-day basis. Gaby Sanchez MD, MPH, [facility] Interventional Cardiology Pager Email: [email or web address] -- H&P reviewed. The patient was examined and there are no changes to the H&P. Patient with NSTEMI vs Type II ID and new reduction of EF (45% to 30%). Peak troponin 2.4. Plan for coronary angiography today. Normal [facility] MAGNESIUMon 05-01-2023 Magnesium [Mass/Vol] 1.3 mg/dL Low 1.9-2.7 [facility] Comment on above: Performed By: #### L [id number] #### [facility] ([facility]) [address] [place] [address] NURSNOTEon 05-01-2023 NURSNOTE Patient had pulled h er IV out, mortgage loan underwriter called the PICC-nurse to start a new one and patient tried to hit the PICC nurse and refused to get the IV. Dr. Quan is aware that patient is without an IV. [facility] NURSNOTE Patient has become m ore agitated and non-compliant with telemetry monitoring. She tried to hit the mortgage loan underwriter and leave the room. Security was called and they helped the patient back to bed and safety. Dr. Quan is notified and he is okay with patient not being monitored. [facility] is notified as well. [facility] POCT GLUCOSE METER UNSOLICIT ED RESULTSon 05-01-2023 Glucose [Mass/Vol] 241 mg/dL High 70-105 [facility] Comment on above: Order Comment: Waive d Testing in the ED is performed under the ED CLIA certificate #[id number]. Result Comment: [email or web address] ss Performed By: #### L [id number] #### [facility] ([facility]) [address] [facility] [place] [address] Glucose [Mass/Vol] 174 mg/dL High 70-105 [facility] Comment on above: Order Comment: Waive d Testing in the ED is performed under the ED CLIA certificate #[id number]. Result Comment: [email or web address] esn Performed By: #### L [id number] #### [facility] ([facility]) [address] [facility] [address] Glucose [Mass/Vol] 211 mg/dL High 70-105 [facility] Comment on above: Order Comment: Waive d Testing in the ED is performed under the ED CLIA certificate #[id number]. Result Comment: [facility] [email or web address] Performed By: #### L [id number] #### [facility] ([facility]) [address] [place] [address] 30on 04-30-2023 30 Daily Case Managemen t [...] OT Six Click Score: 6 PT Recommendations: FDC facility placement OT Recommendations: [facility] facility placement New Consults: Consult Orders (From admission, onward) Start Ordered 04/26/23 1357 Inpatient consult to Cardiology Once Specialty: Cardiology Provider: (Not yet assigned) Question Answer Comment Consulting Group CARDIOLOGY TEAM Reason for Consult? NSTEMI, direct transfer, communicated earlier CYLINDER TESTER, on heparin gtt Level of Consultation Consultation and Management 04/26/23 1357 Ancillary Consults (From admission, onward) Start Ordered 04/29/23 1112 Inpatient consult to Social Work Once Provider: (Not yet assigned) Question Answer Comment Select all services needed for the patient [facility] (30 day convalescent stay) Please indicate [...] for OT? Answer: eval 04/27/23 1306 Normal [facility] 30 The patient is Moder ately [...] Absence of urinary retention Outcome: Progressing Normal [facility] 30 The patient is Moder ately [...] and oxygenation Outcome: Adequate for Discharge Normal [facility] BASIC METABOLIC PANELon 08-0 Anion gap [Moles/Vol] 11 mmol/L Normal 7-20 [facility] Comment on above: Performed By: #### L [id number] #### [facility] ([facility]) [address] [place] [address] Calcium [Mass/Vol] 9.3 mg/dL Normal 8.6-10.3 [facility] Comment on above: Performed By: #### L [id number] #### [facility] ([facility]) [address] [place] [address] Chloride [Moles/Vol] 108 mmol/L High 98-107 [facility] Comment on above: Performed By: #### L [id number] #### [facility] ([facility]) [address] [place] [address] CO2 [Moles/Vol] 29 mmol/L Normal 21-31 [facility] Comment on above: Performed By: #### L [id number] #### [facility] ([facility]) [address] [place] [address] Creatinine [Mass/Vol] 0.82 mg/dL Normal 0.60-1.20 [facility] Comment on above: Performed By: #### L [id number] #### [facility] ([facility]) [address] [place] [address] GLOMERULAR FILTRATION RATE ML/MIN/1.73 SQ M.PREDICTED 78.4 mL/min/1.73m*2 Normal >60.0 [facility] Comment on above: Result Comment: [facility]???s estimated glomerular filtration rate (eGFR) will [...] group of individuals. Performed By: #### L [id number] #### [facility] ([facility]) [address] [place] [address] Glucose [Mass/Vol] 165 mg/dL High 70-100 [facility] Comment on above: Performed By: #### L [id number] #### [facility] ([facility]) [address] [place] [address] Potassium [Moles/Vol] 3.7 mmol/L Normal 3.5-5.1 [facility] Comment on above: Performed By: #### L [id number] #### [facility] ([facility]) [address] [place] [address] Sodium [Moles/Vol] 144 mmol/L Normal 136-145 [facility] Comment on above: Performed By: #### L [id number] #### [facility] ([facility]) [address] [place] [address] Urea nitrogen [Mass/Vol] 22 mg/dL Normal 7-25 [facility] Comment on above: Performed By: #### L [id number] #### [facility] ([facility]) [address] [place] [address] UREA NITROGEN/CREATININE (MASS RATIO) IN SER/PLAS 26.8 Normal [facility] Comment on above: Performed By: #### L [id number] #### [facility] ([facility]) [address] [place] [address] MAGNESIUMon 04-30-2023 Magnesium [Mass/Vol] 1.5 mg/dL Low 1.9-2.7 [facility] Comment on above: Performed By: #### L [id number] #### [facility] ([facility]) [address] [place] [address] POCT GLUCOSE METER UNSOLICIT ED RESULTSon 04-30-2023 Glucose [Mass/Vol] 202 mg/dL High 70-105 [facility] Comment on above: Order Comment: Waive d Testing in the ED is performed under the ED CLIA certificate #[id number]. Result Comment: [email or web address] Performed By: #### L [id number] #### [facility] ([facility]) [address] [place] [address] Glucose [Mass/Vol] 379 mg/dL High 70-105 [facility] Comment on above: Order Comment: Waive d Testing in the ED is performed under the ED CLIA certificate #[id number]. Result Comment: [facility] [email or web address] Performed By: #### L [id number] ####[facility] ([facility])[address] [facility] [address] Glucose [Mass/Vol] 150 mg/dL High 70-105 [facility] Comment on above: Order Comment: Waive d Testing in the ED is performed under the ED CLIA certificate #[id number]. Result Comment: [facility] [email or web address] Performed By: #### L [id number] #### [facility] ([facility]) [address] [place] [address] Glucose [Mass/Vol] 156 mg/dL High 70-105 [facility] Comment on above: Order Comment: Waive d Testing in the ED is performed under the ED CLIA certificate #[id number]. Result Comment: [email or web address] Performed By: #### L [id number] #### [facility] ([facility]) [address] [place] [address] 30on 04-29-2023 30 Daily Case Managemen t [...] OT Six Click Score: 6 PT Recommendations: FDC facility placement OT Recommendations: [facility]DC facility placement New Consults: Consult Orders (From [...] for Consult? NSTEMI, direct transfer, communicated earlier CYLINDER TESTER, on heparin gtt Level of Consultation Consultation and Management 04/26/23 1357 Ancillary Consults (From admission, onward) Start Ordered 04/29/23 1112 Inpatient consult to Social Work Once Provider: (Not yet assigned) Question Answer Comment Select all services needed for the patient [facility] (30 day convalescent stay) Please indicate [...] for OT? Answer: eval 04/27/23 1306 Normal [facility] 30 Problem: Pain - Adul t [...] and behaviors that affect risk of falls [place] fall precautions as indicated by assessment Educate [...] and behaviors that affect risk of falls [place] fall precautions as indicated by assessment Educate [...] to preven (more content not included)... Normal [facility] BASIC METABOLIC PANELon 08-0 Anion gap [Moles/Vol] 15 mmol/L Normal 7-20 [facility] Comment on above: Performed By: #### L [id number] #### [facility] ([facility]) [address] [facility] [place] [address] Calcium [Mass/Vol] 9.1 mg/dL Normal 8.6-10.3 [facility] Comment on above: Performed By: #### L [id number] #### [facility] ([facility]) [address] [facility] [address] Chloride [Moles/Vol] 106 mmol/L Normal 98-107 [facility] Comment on above: Performed By: #### L [id number] #### [facility] ([facility]) [address] [facility] [place] [address] CO2 [Moles/Vol] 22 mmol/L Normal 21-31 [facility] Comment on above: Performed By: #### L [id number] #### [facility] ([facility]) [address] [facility] [address] Creatinine [Mass/Vol] 0.74 mg/dL Normal 0.60-1.20 [facility] Comment on above: Performed By: #### L [id number] #### [facility] ([facility]) [address] [address] GLOMERULAR FILTRATION RATE ML/MIN/1.73 SQ M.PREDICTED 88.6 mL/min/1.73m*2 Normal >60.0 [facility] Comment on above: Result Comment: [facility]???s estimated glomerular filtration rate (eGFR) will [...] group of individuals. Performed By: #### L [id number] #### [facility] ([facility]) [address] [place] [address] Glucose [Mass/Vol] 223 mg/dL High 70-100 [facility] Comment on above: Performed By: #### L [id number] #### [facility] ([facility]) [address] [address] Potassium [Moles/Vol] 3.8 mmol/L Normal 3.5-5.1 [facility] Comment on above: Performed By: #### L [id number] #### [facility] ([facility]) [address] [facility] [place] [address] Sodium [Moles/Vol] 139 mmol/L Normal 136-145 [facility] Comment on above: Performed By: #### L [id number] #### [facility] ([facility]) [address] [place] [address] Urea nitrogen [Mass/Vol] 20 mg/dL Normal 7-25 [facility] Comment on above: Performed By: #### L [id number] #### [facility] ([facility]) [address] [place] [address] UREA NITROGEN/CREATININE (MASS RATIO) IN SER/PLAS 27.0 Normal [facility] Comment on above: Performed By: #### L [id number] #### [facility] ([facility]) [address] [place] [address] CBCon 04-29-2023 Erythrocyte distribution width (RBC) [Ratio] 13.2 % Normal 11.5-15.0 [facility] Comment on above: Performed By: #### L [id number] #### [facility] ([facility]) [address] [place] [address] ERYTHROCYTE MEAN CORPUSCULAR HEMOGLOBIN CONCENTRATION (G/DL) BY AUTOMATED 34.3 g/dL Normal 32.0-35.0 [facility] Comment on above: Performed By: #### L [id number] #### [facility] ([facility]) [address] [place] [address] Hematocrit (Bld) [Volume fraction] 38.2 % Normal 36.0-48.0 [facility] Comment on above: Performed By: #### L [id number] #### [facility] ([facility]) [address] [place] [address] Hemoglobin (Bld) [Mass/Vol] 13.1 g/dL Normal 12.0-15.0 [facility] Comment on above: Performed By: #### L [id number] #### [facility] ([facility]) [address] [place] [address] MCH (RBC) [Entitic mass] 28.5 pg Normal 27.0-33.0 [facility] Comment on above: Performed By: #### L [id number] #### [facility] ([facility]) [address] [place] [address] MCV (RBC) [Entitic vol] 83.2 fL Normal 82.0-98.0 [facility] Comment on above: Performed By: #### L [id number] #### [facility] ([facility]) [address] [place] [address] PLATELETS (10*3/UL) IN BLOOD AUTOMATED COUNT 305 10*3/uL Normal 150-400 [facility] Comment on above: Performed By: #### L [id number] #### [facility] ([facility]) [address] [place] [address] RBC (Bld) [#/Vol] 4.59 10*6/uL Normal 3.80-5.00 [facility] Comment on above: Performed By: #### L [id number] #### [facility] ([facility]) [address] [address] WBC (Bld) [#/Vol] 7.42 10*3/uL Normal 4.00-10.60 [facility] Comment on above: Performed By: #### L [id number] #### [facility] ([facility]) [address] [place] [address] CONSULTon 04-29-2023 CONSULT ------ -- Attestation signed by Luis Alvarez DO at 05/01/2023 1:00 PM Agree with above, provisional diagnosis is delirium secondary to medical condition. -- PSYCHIATRIC INITIAL HISTORY AND PHYSICAL/CONSULT NOTE Kiara Blanc is a 68 y.o. female who presented on 04/26/2023 to [facility] from [facility] ([facility]) for acute NSTEMI. Psychiatry was consulted on [...] acute NSTEMI. She was admitted initially at [facility] ([facility]) on 04/25/2023 after she was found [...] talk to , Mr. Cameron Blanc (ph: [phone]) at the patient's bedside. He called EMS [...] multiple hospitaliz (more content not included)... Normal [facility] HEPARIN LEVELon 04-29-2023 HEPARIN UNFRACTIONATED (U/ML) IN PPP BY CHROMOGENIC METHOD 0.26 IU/mL Low 0.3-0.7 [facility] Comment on above: Result Comment: [place] roxaban and Apixaban will interfere with the anti Xa assay used to monitor UFH and LMWH. Performed By: #### L [id number] ####[facility] ([facility])[address] [facility] [place] [address] MAGNESIUMon 04-29-2023 Magnesium [Mass/Vol] 1.6 mg/dL Low 1.9-2.7 [facility] Comment on above: Performed By: #### L [id number] #### [facility] ([facility]) [address] [facility] [place] [address] NURSNOTEon 04-29-2023 NURSNOTE Pt at [facility]. Informed of most recent poc for his at this time. Informed Dr Talley and psychiatry of being present at bedside in order for them to involve in pt care. Psych states will come speak to . Normal [facility] POCT GLUCOSE METER UNSOLICIT ED RESULTSon 04-29-2023 Glucose [Mass/Vol] 209 mg/dL High 70-105 [facility] Comment on above: Order Comment: Waive d Testing in the ED is performed under the ED CLIA certificate #[id number]. Result Comment: [email or web address] Performed By: #### L [id number] ####[facility] [facility])[address] [place] [address] Glucose [Mass/Vol] 210 mg/dL High 70-105 [facility] Comment on above: Order Comment: Waive d Testing in the ED is performed under the ED CLIA certificate #[id number]. Result Comment: [email or web address] [email or web address] Performed By: #### L [id number] ####[facility] ([facility])[address] [facility] [place] [address] Glucose [Mass/Vol] 210 mg/dL High 70-105 [facility] Comment on above: Order Comment: Waive d Testing in the ED is performed under the ED CLIA certificate #[id number]. Result Comment: [email or web address] [email or web address] Performed By: #### L [id number] ####[facility] ([facility])[address] [place] [address] Glucose [Mass/Vol] 184 mg/dL High 70-105 [facility] Comment on above: Order Comment: Waive d Testing in the ED is performed under the ED CLIA certificate #[id number]. Result Comment: [email or web address] [email or web address] Performed By: #### L [id number] #### [facility] ([facility]) [address] [place] [address] TSH3 REFLEX TO FT4on 023 THYROTROPIN (MIU/L) IN SER/PLAS BY DETECTION LIMIT <= 0.05 MIU/L 1.24 mIU/L Normal 0.34-5.60 [facility] Comment on above: Performed By: #### L [id number] #### [facility] ([facility]) [address] [place] [address] URINALYSIS MICROSCOPIC WITH REFLEX CULTUREon 04-29-2023 CASTS IN URINE Normal [facility] Comment on above: Performed By: #### L [id number] #### [facility] ([facility]) [address] [place] [address] CRYSTALS IN URINE Normal [facility] Comment on above: Performed By: #### L [id number] #### [facility] ([facility]) [address] [place] [address] OTHER MICROSCOPIC ELEMENTS Normal [facility] Comment on above: Performed By: #### L [id number] #### [facility] ([facility]) [address] [place] [address] RBC (#/HPF) IN URINE SEDIMENT None Seen Normal None Seen [facility] Comment on above: Performed By: #### L [id number] #### [facility] ([facility]) [address] [place] [address] SQUAMOUS EPITHELIAL CELLS (#/HPF) IN URINE SEDIMENT Few Abnormal None Seen, Occasional [facility] Comment on above: Performed By: #### L [id number] #### [facility] ([facility]) [address] [place] [address] WBC (LEUKOCYTE) (#/HPF) IN URINE SEDIMENT 3-5 Abnormal None Seen [facility] Comment on above: Performed By: #### L [id number] #### [facility] ([facility]) [address] [place] [address] YEAST, BUDDING (#/HPF) IN URINE Many Abnormal None Seen [facility] Comment on above: Performed By: #### L [id number] #### [facility] ([facility]) [address] [place] [address] URINALYSIS WITH REFLEX CULTU REon 04-29-2023 BILIRUBIN, TOTAL PRESENCE IN URINE Negative Normal Negative [facility] Comment on above: Performed By: #### L [id number] #### [facility] ([facility]) [address] [place] [address] Clarity (U) Clear Normal Clear [facility] Comment on above: Performed By: #### L [id number] #### [facility] ([facility]) [address] [place] [address] Color (U) Yellow Normal Yellow [facility] Comment on above: Performed By: #### L [id number] #### [facility] ([facility]) [address] [place] [address] Glucose (U) [Mass/Vol] mg/dL Abnormal Negative [facility] on above: Performed By: #### L [id number] #### [facility] ([facility]) [address] [place] [address] HEMOGLOBIN PRESENCE IN URINE Moderate Abnormal Negative [facility] Comment on above: Performed By: #### L [id number] #### [facility] ([facility]) [address] [place] [address] Ketones Ql (U) Trace Abnormal Negative [facility] Comment on above: Performed By: #### L [id number] #### [facility] ([facility]) [address] [place] [address] LEUKOCYTE ESTERASE PRESENCE IN URINE BY TEST STRIP Negative Normal Negative [facility] Comment on above: Performed By: #### L [id number] #### [facility] ([facility]) [address] [place] [address] NITRITE PRESENCE IN URINE Negative Normal Negative [facility] Comment on above: Performed By: #### L [id number] #### [facility] ([facility]) [address] [place] [address] pH (U) 5.0 [pH] Normal 5.0-8.0 [facility] Comment on above: Performed By: #### L [id number] #### [facility] ([facility]) [address] [place] [address] Protein (U) [Mass/Vol] 30 mg/dL Abnormal Negative [facility] Comment on above: Performed By: #### L [id number] #### [facility] ([facility]) [address] [place] [address] Specific gravity (U) [Rel density] 1.028 High 1.015-1.020 [facility] Comment on above: Performed By: #### L [id number] #### [facility] ([facility]) [address] [place] [address] VITAMIN B12on 04-29-2023 Cobalamin (Vitamin B12) [Mass/Vol] 512 pg/mL Normal 180-914 [facility] Comment on above: Result Comment: REFE RENCE RANGES: 180-914 pg/mL Normal 145-179 pg/mL Indeterminate <145 pg/mL Deficient Performed By: #### L [id number] #### [facility] ([facility]) [address] [place] [address] 30on 04-28-2023 30 The patient is Moder [...] to discharge with patient and caregiver Normal [facility] BASIC METABOLIC PANELon 08-0 Anion gap [Moles/Vol] 12 mmol/L Normal 7-20 [facility] Comment on above: Performed By: #### L [id number] #### [facility] ([facility]) [address] [place] [address] Calcium [Mass/Vol] 9.2 mg/dL Normal 8.6-10.3 [facility] Comment on above: Performed By: #### L [id number] #### [facility] ([facility]) [address] [place] [address] Chloride [Moles/Vol] 106 mmol/L Normal 98-107 [facility] Comment on above: Performed By: #### L [id number] #### [facility] ([facility]) [address] [place] [address] CO2 [Moles/Vol] 25 mmol/L Normal 21-31 [facility] Comment on above: Performed By: #### L [id number] #### [facility] ([facility]) [address] [place] [address] Creatinine [Mass/Vol] 0.64 mg/dL Normal 0.60-1.20 [facility] Comment on above: Performed By: #### L [id number] #### [facility] ([facility]) [address] [place] [address] GLOMERULAR FILTRATION RATE ML/MIN/1.73 SQ M.PREDICTED 96.8 mL/min/1.73m*2 Normal >60.0 [facility] Comment on above: Result Comment: [facility]???s estimated glomerular filtration rate (eGFR) will [...] individuals. Performed By: #### L [id number] #### [facility] ([facility]) [address] [place] [address] Glucose [Mass/Vol] 163 mg/dL High 70-100 [facility] Comment on above: Performed By: #### L [id number] #### [facility] ([facility]) [address] [place] [address] Potassium [Moles/Vol] 3.8 mmol/L Normal 3.5-5.1 [facility] Comment on above: Performed By: #### L [id number] #### [facility] ([facility]) [address] [place] [address] Sodium [Moles/Vol] 139 mmol/L Normal 136-145 [facility] Comment on above: Performed By: #### L [id number] #### [facility] ([facility]) [address] [place] [address] Urea nitrogen [Mass/Vol] 14 mg/dL Normal 7-25 [facility] Comment on above: Performed By: #### L [id number] #### [facility] ([facility]) [address] [place] [address] UREA NITROGEN/CREATININE (MASS RATIO) IN SER/PLAS 21.9 Normal [facility] Comment on above: Performed By: #### L [id number] #### [facility] ([facility]) [address] [place] [address] CBCon 04-28-2023 Erythrocyte distribution width (RBC) [Ratio] 13.4 % Normal 11.5-15.0 [facility] Comment on above: Performed By: #### L [id number] #### [facility] ([facility]) [address] [place] [address] ERYTHROCYTE MEAN CORPUSCULAR HEMOGLOBIN CONCENTRATION (G/DL) BY AUTOMATED 34.0 g/dL Normal 32.0-35.0 [facility] Comment on above: Performed By: #### L [id number] #### [facility] ([facility]) [address] [place] [address] Hematocrit (Bld) [Volume fraction] 37.1 % Normal 36.0-48.0 [facility] Comment on above: Performed By: #### L [id number] #### [facility] ([facility]) [address] [place] [address] Hemoglobin (Bld) [Mass/Vol] 12.6 g/dL Normal 12.0-15.0 [facility] Comment on above: Performed By: #### L [id number] #### [facility] ([facility]) [address] [place] [address] MCH (RBC) [Entitic mass] 28.2 pg Normal 27.0-33.0 [facility] Comment on above: Performed By: #### L [id number] #### [facility] ([facility]) [address] [place] [address] MCV (RBC) [Entitic vol] 83.0 fL Normal 82.0-98.0 [facility] Comment on above: Performed By: #### L [id number] #### [facility] ([facility]) [address] [place] [address] PLATELETS (10*3/UL) IN BLOOD AUTOMATED COUNT 313 10*3/uL Normal 150-400 [facility] Comment on above: Performed By: #### L [id number] #### [facility] ([facility]) [address] [place] [address] RBC (Bld) [#/Vol] 4.47 10*6/uL Normal 3.80-5.00 [facility] Comment on above: Performed By: #### L [id number] #### [facility] ([facility]) [address] [place] [address] WBC (Bld) [#/Vol] 8.52 10*3/uL Normal 4.00-10.60 [facility] Comment on above: Performed By: #### L [id number] #### [facility] ([facility]) [address] [facility] [place] [address] HEPARIN LEVELon 04-28-2023 HEPARIN UNFRACTIONATED (U/ML) IN PPP BY CHROMOGENIC METHOD 0.30 IU/mL Normal 0.3-0.7 [facility] Comment on above: Result Comment: [place] roxaban and Apixaban will interfere with the anti Xa assay used to monitor UFH and LMWH. Performed By: #### L [id number] #### [facility] ([facility]) [address] [place] [address] HEPARIN UNFRACTIONATED (U/ML) IN PPP BY CHROMOGENIC METHOD 0.43 IU/mL Normal 0.3-0.7 [facility] Comment on above: Result Comment: [place] roxaban and Apixaban will interfere with the anti Xa assay used to monitor UFH and LMWH. Performed By: #### L [id number] ####[facility] ([facility])[address] [place] [address] MAGNESIUMon 04-28-2023 Magnesium [Mass/Vol] 1.2 mg/dL Low 1.9-2.7 [facility] Comment on above: Performed By: #### L [id number] #### [facility] ([facility]) [address] [place] [address] NURSNOTEon 04-28-2023 NURSNOTE Pt Hr reaching betwe en 100-115, cardio fellow made aware as well as primary. Normal [facility] NURSNOTE Primary made aware o f 1.2 mag, loss of IV access again, picc paged. Normal [facility] NURSNOTE IV access lost, prim geoffrey made aware, picc paged. Normal [facility] POCT GLUCOSE METER UNSOLICIT ED RESULTSon 04-28-2023 Glucose [Mass/Vol] 205 mg/dL High 70-105 [facility] Comment on above: Order Comment: Waive d Testing in the ED is performed under the ED CLIA certificate #[id number]. Result Comment: atru ss Performed By: #### L [id number] #### [facility] ([facility]) [address] [place] [address] Glucose [Mass/Vol] 223 mg/dL High 70-105 [facility] Comment on above: Order Comment: Waive d Testing in the ED is performed under the ED CLIA certificate #[id number]. Result Comment: [email or web address] [email or web address] Performed By: #### L [id number] ####[facility] ([facility])[address] [facility] [address] Glucose [Mass/Vol] 185 mg/dL High 70-105 [facility] Comment on above: Order Comment: Waive d Testing in the ED is performed under the ED CLIA certificate #[id number]. Result Comment: [email or web address] [email or web address] Performed By: #### L [id number] #### [facility] ([facility]) [address] [place] [address] Glucose [Mass/Vol] 146 mg/dL High 70-105 [facility] Comment on above: Order Comment: Waive d Testing in the ED is performed under the ED CLIA certificate #[id number]. Result Comment: [email or web address] [email or web address] Performed By: #### L [id number] #### [facility] ([facility]) [address] [place] [address] 30on 04-27-2023 30 The patient is Moder [...] Assess for changes in respiratory status Normal [facility] B-TYPE NATRIURETIC PEPTIDEon 04-27-2023 Natriuretic peptide B (Bld) [Mass/Vol] 299 pg/mL High 0-100 [facility] Comment on above: Performed By: #### L [id number] #### [facility] ([facility]) [address] [place] [address] BASIC METABOLIC PANELon 08-0 Anion gap [Moles/Vol] 7 mmol/L Normal 7-20 [facility] Comment on above: Performed By: #### L [id number] #### [facility] ([facility]) [address] [place] [address] Calcium [Mass/Vol] 7.9 mg/dL Low 8.6-10.3 [facility] Comment on above: Performed By: #### L [id number] #### [facility] ([facility]) [address] [place] [address] Chloride [Moles/Vol] 111 mmol/L High 98-107 [facility] Comment on above: Performed By: #### L [id number] #### [facility] ([facility]) [address] [place] [address] CO2 [Moles/Vol] 25 mmol/L Normal 21-31 [facility] Comment on above: Performed By: #### L [id number] #### [facility] ([facility]) [address] [place] [address] Creatinine [Mass/Vol] 0.63 mg/dL Normal 0.60-1.20 [facility] Comment on above: Performed By: #### L [id number] #### [facility] ([facility]) [address] [place] [address] GLOMERULAR FILTRATION RATE ML/MIN/1.73 SQ M.PREDICTED 97.2 mL/min/1.73m*2 Normal >60.0 [facility] Comment on above: Result Comment: [facility]???s estimated glomerular filtration rate (eGFR) will [...] group of individuals. Performed By: #### L [id number] #### [facility] ([facility]) [address] [place] [address] Glucose [Mass/Vol] 134 mg/dL High 70-100 [facility] Comment on above: Performed By: #### L [id number] #### [facility] ([facility]) [address] [place] [address] Potassium [Moles/Vol] 3.4 mmol/L Low 3.5-5.1 [facility] Comment on above: Performed By: #### L [id number] #### [facility] ([facility]) [address] [place] [address] Sodium [Moles/Vol] 140 mmol/L Normal 136-145 [facility] Comment on above: Performed By: #### L [id number] #### [facility] ([facility]) [address] [place] [address] Urea nitrogen [Mass/Vol] 9 mg/dL Normal 7-25 [facility] Comment on above: Performed By: #### L [id number] #### [facility] ([facility]) [address] [place] [address] UREA NITROGEN/CREATININE (MASS RATIO) IN SER/PLAS 14.3 Normal [facility] Comment on above: Performed By: #### L [id number] #### [facility] ([facility]) [address] [place] [address] CBCon 04-27-2023 Erythrocyte distribution width (RBC) [Ratio] 13.4 % Normal 11.5-15.0 [facility] Comment on above: Performed By: #### L [id number] ####[facility] ([facility])[address] [place] [address] ERYTHROCYTE MEAN CORPUSCULAR HEMOGLOBIN CONCENTRATION (G/DL) BY AUTOMATED 33.1 g/dL Normal 32.0-35.0 [facility] Comment on above: Performed By: #### L [id number] ####[facility] ([facility])[address] [place] [address] Hematocrit (Bld) [Volume fraction] 35.3 % Low 36.0-48.0 [facility] Comment on above: Performed By: #### L [id number] ####[facility] ([facility])[address] [place] [address] Hemoglobin (Bld) [Mass/Vol] 11.7 g/dL Low 12.0-15.0 [facility] Comment on above: Performed By: #### L [id number] ####[facility] ([facility])[address] [place] [address] MCH (RBC) [Entitic mass] 28.3 pg Normal 27.0-33.0 [facility] Comment on above: Performed By: #### L [id number] ####[facility] ([facility])[address] [place] [address] MCV (RBC) [Entitic vol] 85.3 fL Normal 82.0-98.0 [facility] Comment on above: Performed By: #### L [id number] ####[facility] ([facility])[address] [place] [address] PLATELETS (10*3/UL) IN BLOOD AUTOMATED COUNT 296 10*3/uL Normal 150-400 [facility] Comment on above: Performed By: #### L [id number] ####[facility] ([facility])[address] [place] [address] RBC (Bld) [#/Vol] 4.14 10*6/uL Normal 3.80-5.00 [facility] Comment on above: Performed By: #### L [id number] ####[facility] ([facility])[address] [place] [address] WBC (Bld) [#/Vol] 7.50 10*3/uL Normal 4.00-10.60 [facility] Comment on above: Performed By: #### L [id number] ####[facility] ([facility])[address] [place] [address] HEPARIN LEVELon 04-27-2023 HEPARIN UNFRACTIONATED (U/ML) IN PPP BY CHROMOGENIC METHOD 0.50 IU/mL Normal 0.3-0.7 [facility] Comment on above: Result Comment: [place] roxaban and Apixaban will interfere with the anti Xa assay used to monitor UFH and LMWH. Performed By: #### L [id number] ####[facility] ([facility])[address] [place] [address] HEPARIN UNFRACTIONATED (U/ML) IN PPP BY CHROMOGENIC METHOD 0.81 IU/mL High 0.3-0.7 [facility] Comment on above: Result Comment: [place] roxaban and Apixaban will interfere with the anti Xa assay used to monitor UFH and LMWH. Performed By: #### L [id number] #### [facility] ([facility]) [address] [place] [address] HEPARIN UNFRACTIONATED (U/ML) IN PPP BY CHROMOGENIC METHOD 0.81 IU/mL High 0.3-0.7 [facility] Comment on above: Order Comment: Waive d Testing in the ED is performed under the ED CLIA certificate #[id number]. Result Comment: [place] roxaban and Apixaban will interfere with the anti Xa assay used to monitor UFH and LMWH. Performed By: #### L [id number] #### [facility] ([facility]) [address] [place] [address] HEPARIN UNFRACTIONATED (U/ML) IN PPP BY CHROMOGENIC METHOD 0.56 IU/mL Normal 0.3-0.7 [facility] Comment on above: Order Comment: Waive d Testing in the ED is performed under the ED CLIA certificate #[id number]. Result Comment: [place] roxaban and Apixaban will interfere with the anti Xa assay used to monitor UFH and LMWH. Performed By: #### L [id number] #### [facility] ([facility]) [address] [place] [address] MAGNESIUMon 04-27-2023 Magnesium [Mass/Vol] 1.3 mg/dL Low 1.9-2.7 [facility] Comment on above: Performed By: #### L [id number] #### [facility] ([facility]) [address] [place] [address] NURSNOTEon 04-27-2023 NURSNOTE Nurse informed pili davis work In regards to APS being called on pt prior to admission to [facility]. Social currently looking into it for any need for plan or action. [facility] NURSNOTE Nurse informed pili davis work In regards to APS being called on pt prior to admission to [facility]. Social currently looking into it for any need for plan or action. [facility] NURSNOTE Call to lab regardin g Heparin level drawn at 2346. Per lab, sample currently spinning and will have results in approximately 15 minutes. [facility] NURSNOTE Lab called regarding missing Heparin level ordered for 2100. Per lab, will send quality control head to draw now. [facility] POCT GLUCOSE METER UNSOLICIT ED RESULTSon 04-27-2023 Glucose [Mass/Vol] 174 mg/dL High 70-105 [facility] Comment on above: Order Comment: Waive d Testing in the ED is performed under the ED CLIA certificate #[id number]. Result Comment: tash [email or web address] Performed By: #### L [id number] #### [facility] ([facility]) [address] [place] [address] Glucose [Mass/Vol] 235 mg/dL High 70-105 [facility] Comment on above: Order Comment: Waive d Testing in the ED is performed under the ED CLIA certificate #[id number]. Result Comment: acar r12 Performed By: #### L [id number] ####[facility] ([facility])[address] [place] [address] Glucose [Mass/Vol] 134 mg/dL High 70-105 [facility] Comment on above: Order Comment: Waive d Testing in the ED is performed under the ED CLIA certificate #[id number]. Result Comment: acar r12 Performed By: #### L [id number] ####[facility] ([facility])[address] [facility] [place] [address] Glucose [Mass/Vol] 129 mg/dL High 70-105 [facility] Comment on above: Order Comment: Waive d Testing in the ED is performed under the ED CLIA certificate #[id number]. Result Comment: tash [email or web address] Performed By: #### L [id number] ####[facility] ([facility])[address] [facility] [place] [address] Glucose [Mass/Vol] 175 mg/dL High 70-105 [facility] Comment on above: Order Comment: Waive d Testing in the ED is performed under the ED CLIA certificate #[id number]. Result Comment: tash [email or web address] Performed By: #### L [id number] ####[facility] ([facility])[address] [facility] [place] [address] TROPONIN Ion 04-27-2023 Troponin I.cardiac [Mass/Vol] 1.17 ng/mL Critically high 0.00-0.04 [facility] Comment on above: Result Comment: Prev ious result verified on 04/27/2023 0213 on specimen/case [id number] called with component Troponin I for procedure Troponin I with value 1.59 ng/mL. Performed By: #### L [id number] #### [facility] ([facility]) [address] [place] [address] Troponin I.cardiac [Mass/Vol] 1.59 ng/mL Critically high 0.00-0.04 [facility] Comment on above: Result Comment: Prev ious result verified on 04/26/2023 1845 on specimen/case [id number] called with component Troponin I for procedure Troponin I with value 2.45 ng/mL. Performed By: #### L [id number] #### [facility] ([facility]) [address] [place] [address] 30on 04-26-2023 30 Problem: Pain - Adul [...] for the shift include monitor labs/vitals Normal [facility] 04-26-2023 ACTIVATED PARTIAL THROMBOPLASTIN TIME IN PPP BY COAGULATION ASSAY 65.1 Seconds High 25.0-35.0 [facility] Comment on above: Order Comment: Basel ine aPTT before initiating heparin infusion. Result Comment: Clin ical significance of the APTT is questionable in the presence of heparin. Performed By: #### L [id number] #### [facility] ([facility]) [address] [place] [address] BILIRUBIN, DIRECTon 04-26-20 Magnesium [Mass/Vol] 0.1 mg/dL Normal 0-0.2 [facility] Comment on above: Performed By: #### L [id number] #### [facility] ([facility]) [address] [place] [address] CBC WITH AUTO DIFFERENTIALon 04-26-2023 Basophils (Bld) [#/Vol] 0.04 10*3/uL Normal 0.00-0.20 [facility] Comment on above: Performed By: #### L [id number] #### [facility] ([facility]) [address] [place] [address] Basophils/100 WBC (Bld) 0.6 % Normal 0.0-1.0 [facility] Comment on above: Performed By: #### L [id number] #### [facility] ([facility]) [address] [place] [address] Eosinophils (Bld) [#/Vol] 0.24 10*3/uL Normal 0.00-0.50 [facility] Comment on above: Performed By: #### L [id number] #### [facility] ([facility]) [address] [place] [address] Eosinophils/100 WBC (Bld) 3.3 % Normal 0.0-6.0 [facility] Comment on above: Performed By: #### L [id number] #### [facility] ([facility]) [address] [place] [address] Erythrocyte distribution width (RBC) [Ratio] 13.7 % Normal 11.5-15.0 [facility] Comment on above: Performed By: #### L [id number] #### [facility] ([facility]) [address] [place] [address] ERYTHROCYTE MEAN CORPUSCULAR HEMOGLOBIN CONCENTRATION (G/DL) BY AUTOMATED 33.7 g/dL Normal 32.0-35.0 [facility] Comment on above: Performed By: #### L [id number] #### [facility] ([facility]) [address] [place] [address] Hematocrit (Bld) [Volume fraction] 35.6 % Low 36.0-48.0 [facility] Comment on above: Performed By: #### L [id number] #### [facility] ([facility]) [address] [place] [address] Hemoglobin (Bld) [Mass/Vol] 12.0 g/dL Normal 12.0-15.0 [facility] Comment on above: Performed By: #### L [id number] #### [facility] ([facility]) [address] [place] [address] Immature granulocytes (Bld) [#/Vol] 0.07 10*3/uL Normal 0.00-0.20 [facility] Comment on above: Performed By: #### L [id number] #### [facility] ([facility]) [address] [place] [address] Immature granulocytes/100 WBC (Bld) 1.0 % Normal 0.0-1.0 [facility] Comment on above: Performed By: #### L [id number] #### [facility] ([facility]) [address] [place] [address] Lymphocytes (Bld) [#/Vol] 1.66 10*3/uL Normal 1.20-4.00 [facility] Comment on above: Performed By: #### L [id number] #### [facility] ([facility]) [address] [place] [address] Lymphocytes/100 WBC (Bld) 23.0 % Normal 20.0-45.0 [facility] Comment on above: Performed By: #### L [id number] #### [facility] ([facility]) [address] [place] [address] MCH (RBC) [Entitic mass] 28.6 pg Normal 27.0-33.0 [facility] Comment on above: Performed By: #### L [id number] #### [facility] ([facility]) [address] [place] [address] MCV (RBC) [Entitic vol] 84.8 fL Normal 82.0-98.0 [facility] Comment on above: Performed By: #### L [id number] #### [facility] ([facility]) [address] [place] [address] Monocytes (Bld) [#/Vol] 0.83 10*3/uL Normal 0.10-1.00 [facility] Comment on above: Performed By: #### L [id number] #### [facility] ([facility]) [address] [place] [address] Monocytes/100 WBC (Bld) 11.5 % Normal 5.0-12.0 [facility] Comment on above: Performed By: #### L [id number] #### [facility] ([facility]) [address] [place] [address] Neutrophils (Bld) [#/Vol] 4.37 10*3/uL Normal 1.60-7.60 [facility] Comment on above: Performed By: #### L [id number] #### [facility] ([facility]) [address] [place] [address] Neutrophils/100 WBC (Bld) 60.6 % Normal 40.0-72.0 [facility] Comment on above: Performed By: #### L [id number] #### [facility] ([facility]) [address] [place] [address] NRBC (PER 100 WBCS) BY AUTOMATED COUNT 0.0 % Normal 0 [facility] Comment on above: Performed By: #### L [id number] #### [facility] ([facility]) [address] [place] [address] PLATELETS (10*3/UL) IN BLOOD AUTOMATED COUNT 301 10*3/uL Normal 150-400 [facility] Comment on above: Performed By: #### L [id number] #### [facility] ([facility]) [address] [place] [address] RBC (Bld) [#/Vol] 4.20 10*6/uL Normal 3.80-5.00 [facility] Comment on above: Performed By: #### L [id number] #### [facility] ([facility]) [address] [place] [address] WBC (Bld) [#/Vol] 7.21 10*3/uL Normal 4.00-10.60 [facility] Comment on above: Performed By: #### L [id number] #### [facility] ([facility]) [address] [place] [address] CKon 04-26-2023 CREATINE KINASE (U/L) IN SER/PLAS 396.0 U/L High 30.0-223.0 [facility] Comment on above: Performed By: #### L [id number] #### [facility] ([facility]) [address] [place] [address] COMPREHENSIVE METABOLIC PANE Cedric 04-26-2023 Albumin [Mass/Vol] 3.0 g/dL Low 3.5-5.7 [facility] Comment on above: Performed By: #### L [id number] #### [facility] ([facility]) [address] [place] [address] ALP [Catalytic activity/Vol] 63 U/L Normal 34-104 [facility] Comment on above: Performed By: #### L [id number] #### [facility] ([facility]) [address] [place] [address] ALT [Catalytic activity/Vol] 17 U/L Normal 7-52 [facility] Comment on above: Performed By: #### L [id number] #### [facility] ([facility]) [address] [place] [address] Anion gap [Moles/Vol] 10 mmol/L Normal 7-20 [facility] Comment on above: Performed By: #### L [id number] #### [facility] ([facility]) [address] [place] [address] AST [Catalytic activity/Vol] 41 U/L High 13-39 [facility] Comment on above: Performed By: #### L [id number] #### [facility] ([facility]) [address] [place] [address] Bilirubin [Mass/Vol] 0.3 mg/dL Normal 0.3-1.0 [facility] Comment on above: Performed By: #### L [id number] #### [facility] ([facility]) [address] [place] [address] Calcium [Mass/Vol] 8.4 mg/dL Low 8.6-10.3 [facility] Comment on above: Performed By: #### L [id number] #### [facility] ([facility]) [address] [place] [address] Chloride [Moles/Vol] 110 mmol/L High 98-107 [facility] Comment on above: Performed By: #### L [id number] #### [facility] ([facility]) [address] [place] [address] CO2 [Moles/Vol] 25 mmol/L Normal 21-31 [facility] Comment on above: Performed By: #### L [id number] #### [facility] ([facility]) [address] [place] [address] Creatinine [Mass/Vol] 0.70 mg/dL Normal 0.60-1.20 [facility] Comment on above: Performed By: #### L [id number] #### [facility] ([facility]) [address] [place] [address] GLOMERULAR FILTRATION RATE ML/MIN/1.73 SQ M.PREDICTED 94.7 mL/min/1.73m*2 Normal >60.0 [facility] Comment on above: Result Comment: The [...] individuals. Performed By: #### L [id number] #### [facility] ([facility]) [address] [place] [address] Glucose [Mass/Vol] 75 mg/dL Normal 70-100 [facility] Comment on above: Performed By: #### L [id number] #### [facility] ([facility]) [address] [place] [address] Potassium [Moles/Vol] 3.5 mmol/L Normal 3.5-5.1 [facility] Comment on above: Performed By: #### L [id number] #### [facility] ([facility]) [address] [place] [address] Protein [Mass/Vol] 5.6 g/dL Low 6.0-8.3 [facility] Comment on above: Performed By: #### L [id number] #### [facility] ([facility]) [address] [place] [address] Sodium [Moles/Vol] 141 mmol/L Normal 136-145 [facility] Comment on above: Performed By: #### L [id number] #### [facility] ([facility]) [address] [place] [address] Urea nitrogen [Mass/Vol] 12 mg/dL Normal 7-25 [facility] Comment on above: Performed By: #### L [id number] #### [facility] ([facility]) [address] [place] [address] UREA NITROGEN/CREATININE (MASS RATIO) IN SER/PLAS 17.1 Normal [facility] Comment on above: Performed By: #### L [id number] #### [facility] ([facility]) [address] [place] [address] CONSULTon 04-26-2023 CONSULT ------ -- Attestation signed [...] Teaching Physician's Revisions: none Ofe Little MD [place] [facility] -- Reason For Consult NSTEMI, direct transfer, 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 female who was admittied initailly at [facility] for NSTEMI. PMHx of CAD s/p CABG x4 (PARKER-LAD, L radial-OM 1, SVG-OM2, SVG-PDA) in 05/07/2017, HLD, smoker, HFmrEF, unable to reliably assess NYHA at this point, diabetes mellitus. Patient had initially presented to [place] by ambulance after he was found on [...] q8h PRN (more content not included)... Normal [facility] HEMOGLOBIN A1Con 04-26-2023 Glucose [Mass/Vol] 212 mg/dL Normal [facility] Comment on above: Performed By: #### L [id number] #### [facility] ([facility]) [address] [place] [address] HbA1c (Bld) [Mass fraction] 9.0 % High 4.0-6.0 [facility] Comment on above: Performed By: #### L [id number] #### [facility] ([facility]) [address] [place] [address] HEPARIN LEVELon 04-26-2023 HEPARIN UNFRACTIONATED (U/ML) IN PPP BY CHROMOGENIC METHOD 0.27 IU/mL Low 0.3-0.7 [facility] Comment on above: Order Comment: Basel ine aPTT before initiating heparin infusion. Result Comment: Jolanta roxaban and Apixaban will interfere with the anti Xa assay used to monitor UFH and LMWH. Performed By: #### L [id number] #### [facility] ([facility]) [address] [place] [address] LIPID PANELon 04-26-2023 CHOL/HDL 2.5 mg/dL Normal [facility] Comment on above: Performed By: #### L [id number] #### [facility] ([facility]) [address] [facility] [place] [address] Cholesterol [Mass/Vol] 85 mg/dL Low 120-200 [facility] Comment on above: Performed By: #### L [id number] #### [facility] ([facility]) [address] [facility] [place] [address] Magnesium [Mass/Vol] 67 mg/dL Normal 40-149 [facility] Comment on above: Result Comment: TRIG LYCERIDE REFERENCE RANGE: 20 YEARS AND OLDER CARDIOVASCULAR RISK LESS THAN 150 mg/dL LOW RISK 150 TO 199 mg/dL BORDERLINE RISK 200 mg/dL AND GREATER HIGH RISK Performed By: #### L [id number] #### [facility] ([facility]) [address] [facility] [place] [address] Magnesium [Mass/Vol] 38 mg/dL Normal 0-160 [facility] Comment on above: Performed By: #### L [id number] #### [facility] ([facility]) [address] [facility] [place] [address] Magnesium [Mass/Vol] 34 mg/dL Normal 23-92 [facility] Comment on above: Performed By: #### L [id number] #### [facility] ([facility]) [address] [place] [address] NON HDL CHOL. (LDL+VLDL) 51 Normal [facility] Comment on above: Performed By: #### L [id number] #### [facility] ([facility]) [address] [facility] [place] [address] TOTAL VLDL-C 13 mg/dL Normal 0-40 [facility] Comment on above: Performed By: #### L [id number] #### [facility] ([facility]) [address] [place] [address] MAGNESIUMon 04-26-2023 Magnesium [Mass/Vol] 0.6 mg/dL Invalid Interpretation Code 1.9-2.7 [facility] Comment on above: Performed By: #### L [id number] #### [facility] ([facility]) [address] [place] [address] NURSNOTEon 04-26-2023 NURSNOTE Critical trop 2.45 a nd mag 0.6 reported by lab, admitting MD made aware. No current orders. Normal [facility] NURSNOTE Labs ordered at 1400 , nurse called lab x4 as no current labs completed. Nurse assured labs will be drawn shortly. Normal [facility] POCT GLUCOSE METER UNSOLICIT ED RESULTSon 04-26-2023 Glucose [Mass/Vol] 78 mg/dL Normal 70-105 [facility] Comment on above: Order Comment: Waive d Testing in the ED is performed under the ED CLIA certificate #[id number]. Result Comment: [email or web address] Performed By: #### L [id number] #### [facility] ([facility]) [address] [place] [address] Glucose [Mass/Vol] 70 mg/dL Normal 70-105 [facility] Comment on above: Order Comment: Waive d Testing in the ED is performed under the ED CLIA certificate #[id number]. Result Comment: [email or web address] [email or web address] Performed By: #### L [id number] #### [facility] ([facility]) [address] [place] [address] Glucose [Mass/Vol] 62 mg/dL Low 70-105 [facility] Comment on above: Order Comment: Waive d Testing in the ED is performed under the ED CLIA certificate #[id number]. Result Comment: [email or web address] Performed By: #### L [id number] ####[facility] ([facility])[address] [place] [address] TROPONIN Ion 04-26-2023 Troponin I.cardiac [Mass/Vol] 2.45 ng/mL Critically high 0.00-0.04 [facility] Comment on above: Performed By: #### L [id number] #### [facility] ([facility]) [address] [place] [address] TSH3 REFLEX TO FT4on 023 THYROTROPIN (MIU/L) IN SER/PLAS BY DETECTION LIMIT <= 0.05 MIU/L 1.82 mIU/L Normal 0.34-5.60 [facility] Comment on above: Performed By: #### L [id number] #### [facility] ([facility]) [address] [place] [address] Basic Metabolic Panelon 02-21 Anion gap [Moles/Vol] 9 mmol/L 9 - 17 mmol/L [facility] Calcium [Mass/Vol] 8.8 mg/dL 8.6 - 10. 4 mg/dL [facility] Chloride [Moles/Vol] 106 mmol/L 98 - 10 7 mmol/L [facility] CO2 [Moles/Vol] 25 mmol/L 20 - 31 mmol/L [facility] Creatinine [Mass/Vol] 0.83 mg/dL 0.50 - 0.90 mg/dL [facility] GFR/1.73 sq M.predicted MDRD (S/P/Bld) [Vol rate/Area] - [facility] Comment on above: These results are not [...] 152 mg/dL High 70 - 99 mg/dL [facility] [employer] Interpretation and review of laboratory results Abnormal [facility] [employer] Potassium [Moles/Vol] 4.9 mmol/L 3.7 - 5.3 mmol/L [facility] Sodium [Moles/Vol] 140 mmol/L 135 - 144 mmol/L [facility] Urea nitrogen [Mass/Vol] 15 mg/dL 8 - 23 mg/dL [facility] Urea nitrogen/Creatinine [Mass ratio] 18 mg/mg 9 - 20 [facility] CBC with Auto Differentialon 03-11-2023 Basophils (Bld) [#/Vol] 0.04 10*3/uL [facility] Basophils/100 WBC (Bld) 0 % 0 - 2 % [facility] Eosinophils (Bld) [#/Vol] 0.17 10*3/uL [facility] Eosinophils/100 WBC (Bld) 2 % 1 - 4 % [facility] Erythrocyte distribution width (RBC) [Ratio] 13.2 % 11.8 - 14.4 % [facility] Hematocrit (Bld) [Volume fraction] 38.5 % 36.3 - 47.1 % [facility] Hemoglobin (Bld) [Mass/Vol] 12.5 g/dL 11.9 - 15.1 g/dL [facility] Immature granulocytes (Bld) [#/Vol] 0.10 10*3/uL [facility] Immature granulocytes/100 WBC (Bld) 1 % High 0 [facility] Interpretation and review of laboratory results Abnormal [facility] Lymphocytes/100 WBC (Bld) 19 % Low 24 - 43 % [facility] Lymphocytes/100 WBC (Bld) 1.88 % [facility] MCH (RBC) [Entitic mass] 29.1 pg 25.2 - 33.5 pg [facility] MCHC (RBC) [Mass/Vol] 32.5 g/dL 28.4 - 34.8 g/dL [facility] MCV (RBC) [Entitic vol] 89.7 fL 82.6 - 102.9 fL [facility] Monocytes/100 WBC (Bld) 9 % 3 - 12 % [facility] Monocytes/100 WBC (Bld) 0.90 % [facility] Neutrophils/100 WBC (Bld) 69 % High 36 - 65 % [facility] NRBC Automated 0.0 0.0 per 100 WBC [facility] Platelet mean volume (Bld) [Entitic vol] 10.2 fL 8.1 - 13.5 fL [facility] Platelets (Bld) [#/Vol] 327 10*3/uL [facility] RBC (Bld) [#/Vol] 4.29 10*6/uL 3.95 - 5.1 1 m/uL [facility] Segmented neutrophils/100 WBC (Bld) 6.72 % [facility] WBC other (Bld) [#/Vol] 9.8 [facility] Microscopic Urinalysison Bacteria LM Ql (Urine sed) 3+ Abnormal None [facility] Epithelial cells LM.HPF (Urine sed) [#/Area] 10 TO 20 [facility] Interpretation and review of laboratory results Abnormal [facility] RBC LM.HPF (Urine sed) [#/Area] 0 TO 2 [facility] WBC LM.HPF (Urine sed) [#/Area] 10 TO 20 [facility] Urinalysis with Reflex to Cu ltureon 03-11-2023 Bilirubin Ql (U) Negative NEGATIVE [facility] Clarity (U) Clear Clear [facility] Color (U) Yellow Yellow [facility] Glucose Test strip (U) [Mass/Vol] Negative NEGATIVE [facility] Hemoglobin Auto test strip Ql (U) Negative NEGATIVE [facility] Interpretation and review of laboratory results Abnormal [facility] Ketones (U) [Mass/Vol] Negative NEGATIVE [facility] Leukocyte esterase Test strip Ql (U) MODERATE Abnormal NEGATIVE [facility] Nitrite Ql (U) Positive Abnormal NEGATIVE [facility] pH (U) 7.5 [pH] 5.0 - 9.0 [facility] Protein (U) [Mass/Vol] 1+ Abnormal NEGATIVE [facility] Specific gravity (U) [Rel density] 1.015 1.010 - 1.020 [facility] Urobilinogen Qn (U) Normal Normal [facility] Cult,Urineon 03-09-2023 Cult,Urine Specimen Description .URINE Culture NO SIGNIFICANT GROWTH Report Status FINAL 03/09/2023 Normal [facility] Comment on above: Performed By: #### U RC #### [facility] [address] [place] [address] Manager Report: Joey Aguilar MD Laboratory - Microbiology an d Antimicrobial susceptibilityon 03-07-2023 Bacteria identified Cx Nom (U) See Note [facility] Comment on above: Note: Specimen Descr iption .URINECulture NO SIGNIFICANT GROWTHReport Status FINAL 03/09/2023Responsible Observer: KALEB KLEIN ([id number]) No Panel Informationon 03-07 Reported Physicians See Note [facility] Comment on above: Note: Reported Physi cians:Ordering: Sonya PosadaAttending: Meliton Posadaeferring: Sonya Posada CT CSPINE WO CONon CT CSPINE WO CON Normal [facility] CT HEAD WO CONon 01-10-2023 CT HEAD WO CON Normal [facility] POINT OF CARE GLUCOSEon 12-23 Glucose [Mass/Vol] 177 mg/dL Critically high 74-106 [facility] Comment on above: Performed By: #### P OCGLUC ####[facility] [address] [place], [place] [address]Xf. Antonella Medrano XR KNEE RT 3Von 01-10-2023 XR KNEE RT 3V Normal [facility] XR WRIST LT MIN 3 Von 2022 XR WRIST LT MIN 3 V Normal [facility] CBC AUTO DIFFon 01-06-2023 BASO # 0.0 103/ul Normal 0.0-0.1 [facility] Comment on above: Performed By: #### C BC ####[facility] [address] [place], [place] [address]Tc. Antonella Medrano Basophils/100 WBC (Bld) 0.4 % Normal 0.2-2.0 [facility] Comment on above: Performed By: #### C BC ####[facility] [address] [place] [address]Dr. Antonella Medrano EO # 0.2 103/ul Normal 0.0-0.7 [facility] Comment on above: Performed By: #### C BC ####[facility] [address] [place] [address]Dr. Antonella Medrano Eosinophils/100 WBC (Bld) 1.8 % Normal 0.9-7.0 [facility] Comment on above: Performed By: #### C BC ####[facility] [address] [place], [place] [address]Dr. Antonella Medrano Erythrocyte distribution width (RBC) [Ratio] 13.9 % Normal 11.0-15.0 [facility] Comment on above: Performed By: #### C BC ####[facility] [address] [place], [place] [address]Dr. Antonella Medrano Hematocrit (Bld) [Volume fraction] 36.0 % Normal 36.0-48.0 [facility] Comment on above: Performed By: #### C BC ####[facility] [address] [place], [place] [address]Dr. Antonella Medrano Hemoglobin (Bld) [Mass/Vol] 12.2 g/dL Normal 12.0-16.0 [facility] Comment on above: Performed By: #### C BC ####[facility] [address] [place], [place] [address]Dr. Antonella Medrano IG # 0.12 10e3/ul Critically high 0.00-0.03 [facility] Comment on above: Performed By: #### C BC ####[facility] [address] [place], [place] [address]Dr. Mariafilemon Medrano IG % 1.3 % Critically high 0.0-0.5 [facility] Comment on above: Performed By: #### C BC ####[facility] [address] [place], [place] [address]DrGerman Medrano LYMPH # 2.3 103/ul Normal 1.2-3.8 [facility] Comment on above: Performed By: #### C BC ####[facility] [address] [place] [address]Dr. Antonella Medrano Lymphocytes/100 WBC (Bld) 25.8 % Normal 20.5-60.0 [facility] Comment on above: Performed By: #### C BC ####[facility] [address] [place] [address]Dr. Antonella Medrano MANUAL DIFF REQ NO Normal [facility] Comment on above: Performed By: #### C BC ####[facility] [address] [place] [address]Dr. Antonella Medrano MCH (RBC) [Entitic mass] 30.0 pg Normal 26.7-34.0 [facility] Comment on above: Performed By: #### C BC ####[facility] [address] [place], [place] [address]Dr. Antonella Medrano MCHC (RBC) [Mass/Vol] 33.9 g/dL Normal 29.9-35.2 [facility] Comment on above: Performed By: #### C BC ####[facility] [address] [place], [place] [address]Dr. Antonella Medrano MCV (RBC) [Entitic vol] 88.5 fL Normal 81.0-99.0 [facility] Comment on above: Performed By: #### C BC ####[facility] [address] [place], [place] [address]Dr. Antonella Medrano MONO # 1.0 103/ul Critically high 0.3-0.8 [facility] Comment on above: Performed By: #### C BC ####[facility] [address] [place], [place] [address]DrGerman Medrano Monocytes/100 WBC (Bld) 10.6 % Normal 1.7-12.0 [facility] Comment on above: Performed By: #### C BC ####[facility] [address] [place], [place] [address]DrGemran Medrano NEUT # 5.4 103/ul Normal 1.4-6.5 [facility] Comment on above: Performed By: #### C BC ####[facility] [address] [place] [address]Dr. Antonella Medrano Neutrophils/100 WBC (Bld) 60.1 % Normal 43.0-75.0 [facility] Comment on above: Performed By: #### C BC ####[facility] [address] [place] [address]Dr. Antonella Medrano Platelet mean volume (Bld) [Entitic vol] 10.6 fL Normal 9.5-13.5 [facility] Comment on above: Performed By: #### C BC ####[facility] [address] [place] [address]Dr. Antonella Medrano PLT 306 103/ul Normal 150-450 [facility] Comment on above: Performed By: #### C BC ####[facility] [address] [place] [address]Dr. Antonella Mitchell RBC 4.07 106/ul Critically low 4.20-5.40 [facility] Comment on above: Performed By: #### C BC ####[facility] [address]vbjlfcv[address] [place] [address]Dr. Antonella Medrano WBC 9.0 103/ul Normal 4.0-11.0 [facility] Comment on above: Performed By: #### C BC ####[facility] Ohergzammc[address] [place] [address] Anton[address] Medrano CT CSPINE WO CONon 3 CT CSPINE WO CON Normal [facility] POINT OF CARE GLUCOSEon 12-22 Glucose [Mass/Vol] 101 mg/dL Normal 74-106 [facility] Comment on above: Performed By: #### P OCGLUC ####[facility] Ofsywizvll[address] [place], [place] [address]Dr. Mariafilemon Medrano PROF 14(COMP METB)on 023 Albumin [Mass/Vol] 2.7 g/dL Critically low 3.4-5.0 [facility] Comment on above: Performed By: #### C MP, HSTROPN ####[facility] H[address]kashmq[address] [place] [address]Dr. Antonella Medrano Albumin/Globulin [Mass ratio] 0.8 {ratio} Normal [facility] Comment on above: Performed By: #### C MARLEY, HSTROPN ####[facility] Hqlodcilct[address] [place] [address]Dr. Antonella Medrano ALP [Catalytic activity/Vol] 95 U/L Normal 46-116 [facility] Comment on above: Performed By: #### C MARLEY, HSTROPN ####[facility] Yqdjyamqbs[address] [place] [address]Dr. Antonella Medrano ALT [Catalytic activity/Vol] 15 U/L Normal 14-59 [facility] Comment on above: Performed By: #### C MARLEY, HSTROPN ####[facility] W[address]imzaqdhy[address] [place] [address]Dr. Antonella Medrano Anion gap [Moles/Vol] 12.9 mmol/L Normal [facility] Comment on above: Performed By: #### C MARLEY, HSTROPN ####[facility] Zsmlpbedhg94[address] [place] [address]Dr. Antonella Medrano AST [Catalytic activity/Vol] 13 U/L Critically low 15-37 [facility] Comment on above: Performed By: #### C MARLEY, HSTROPN ####[facility] Dlneoqpook[address] [place] [address]Dr. Antonella Medrano Bilirubin [Mass/Vol] 0.2 mg/dL Normal 0.2-1.0 [facility] Comment on above: Performed By: #### C MARLEY, HSTROPN ####[facility] Nillnwblhx66[address] [place] [address]Dr. Antonella Medrano Calcium [Mass/Vol] 8.6 mg/dL Normal 8.5-10.1 [facility] Comment on above: Performed By: #### C MARLEY, HSTROPN ####[facility] Svoxfwywpv[address] [place] [address]Dr. Antonella Medrano Chloride [Moles/Vol] 106 mmol/L Normal 98-107 [facility] Comment on above: Performed By: #### C MARLEY, HSTROPN ####[facility] Ubwlwqcapw15[address] [place] [address]Dr. Antonella Medrano CO2 [Moles/Vol] 28.1 mmol/L Normal 21.0-32.0 [facility] Comment on above: Performed By: #### C MARLEY, HSTROPN ####[facility] Wekhfomrtx68[address] [place] [address]Dr. Mariafilemon Medrano Creatinine [Mass/Vol] 1.05 mg/dL Critically high 0.55-1.02 [facility] Comment on above: Performed By: #### C MARLEY, HSTROPN ####[facility] Temjyqftpg[address] [place], [place] [address]Dr. Antonella Mitchell EGFR-AF GUATEMALAN >60 Normal >=60 [facility] Comment on above: Performed By: #### C MARLEY, HSTROPN ####[facility] Myiiccluxs[address] [place], [place] [address]Dr. Mariafilemon Medrano EGFR-NON AF GUATEMALAN 52 mL/min/1.73m2 Critically low >=60 [facility] Comment on above: Performed By: #### C MARLEY, HSTROPN ####[facility] Lzzghnkgwp[address] [place], [place] [address]Dr. Mariafilemon Medrano Globulin (S) [Mass/Vol] 3.5 g/dL Normal [facility] Comment on above: Performed By: #### C MARLEY, HSTROPN ####[facility] Mxsdpsmacm82[address] [place] [address]Dr. Mariafilemon Medrano Glucose [Mass/Vol] 96 mg/dL Normal 74-106 [facility] Comment on above: Performed By: #### C MARLEY, HSTROPN ####[facility] Chrhctfowo69[address] [place] [address]Dr. Antonella Medrano Potassium [Moles/Vol] 4.0 mmol/L Normal 3.5-5.1 [facility] Comment on above: Performed By: #### C MARLEY, HSTROPN ####[facility] Xbopqgevoi76[address] [place] [id number]. Antonella Medrano Protein [Mass/Vol] 6.2 g/dL Critically low 6.4-8.2 [facility] Comment on above: Performed By: #### C MP, HSTROPN ####[facility] Ugadblkmux485[address] [place] [id number]. Antonella Medrano Sodium [Moles/Vol] 143 mmol/L Normal 136-145 [facility] Comment on above: Performed By: #### C MP, HSTROPN ####[facility] Owwkwsdizd5234 [place] [id number]. Antonella Medrano Urea nitrogen [Mass/Vol] 22.0 mg/dL Critically high 7.0-18.0 [facility] Comment on above: Performed By: #### C MP, HSTROPN ####[facility] Vdockhbqcp5878 [place] [address]Dr. Antonella Medrano Urea nitrogen/Creatinine [Mass ratio] 21.0 mg/mg Normal [facility] Comment on above: Performed By: #### C MP, HSTROPN ####[facility] Bqwmgdjjvl79[address] [place] [id number]. Antonella Medrano TROPONIN, HIGH SENSITIVITYon 01-06-2023 HSTROP 48.1 pg/mL Normal 4.0-51.3 [facility] Comment on above: Result Comment: CUT- OFF POINTS HAVE BEEN ESTABLISHED BASED ON THE FOURTH UNIVERSAL DEFINITIONS OF MYOCARDIALINFARCTION. THE UPPER REFERENCE LIMIT (URL) OF TROPONIN, DEFINED THE 99TH PERCENTILE OFcTnI DISTRIBUTION IN A REFERENCE POPULATION, HAS BEEN CONFIRMED THE DECISION THRESHOLDFOR ID DIAGNOSIS. Performed By: #### C MP, HSTROPN ####[facility] Osthiwaycv47[address] [place] [address]Dr. Antonella Medrano XR PELVIS 1_2 VIEWSon 2022 XR PELVIS 1_2 VIEWS Normal [facility] XR SHOULDER LT 2V or >on XR SHOULDER LT 2V or > Normal [facility] CULTURE URINEon 01-03-2023 CULTURE URINE Culture Observations : GREATER THAN TWO ORGANISMS PRESENT. PLEASE RESUBMIT CLEAN CATCH MID-STREAM URINE IF CLINICALLY INDICATED. Normal [facility] Comment on above: Performed By: #### U RCX ####[facility] Etnvqaefym[address] [place] [address]Dr. Antonella Mitchell CBC AUTO DIFFon 01-02-2023 BASO # 0.0 103/ul Normal 0.0-0.1 [facility] Comment on above: Performed By: #### C BC ####[facility] Zdsofgjpkp[address] [place], [place] [address]Dr. Antonella Medrano Basophils/100 WBC (Bld) 0.4 % Normal 0.2-2.0 [facility] Comment on above: Performed By: #### C BC ####[facility] Apwsgmbapg56[address] [place], [place] [address]Dr. Antonella Medrano EO # 0.2 103/ul Normal 0.0-0.7 [facility] Comment on above: Performed By: #### C BC ####[facility] Pkpdmgjuot032[address] [place], [place] [address]Dr. Antonella Medrano Eosinophils/100 WBC (Bld) 3.0 % Normal 0.9-7.0 [facility] Comment on above: Performed By: #### C BC ####[facility] Sgsknksjqc027[address] [place], [place] [address]Dr. Antonella Mitchell Erythrocyte distribution width (RBC) [Ratio] 14.0 % Normal 11.0-15.0 [facility] Comment on above: Performed By: #### C BC ####[facility] Iqmdjtkqpz155[address] [place], [place] [address]Dr. Antonella Medrano Hematocrit (Bld) [Volume fraction] 37.5 % Normal 36.0-48.0 [facility] Comment on above: Performed By: #### C BC ####[facility] Xpajounihs272[address] [place], [place] [address]Dr. Mariafilemon Mitchell Hemoglobin (Bld) [Mass/Vol] 12.1 g/dL Normal 12.0-16.0 [facility] Comment on above: Performed By: #### C BC ####[facility] Gzpjkqfcqe61[address] [place] [address]Dr. Antonella Medrano IG # 0.10 10e3/ul Critically high 0.00-0.03 [facility] Comment on above: Performed By: #### C BC ####[facility] Qmpnkxuqcz7661 [place] [address]DrGerman Antonella Mitchell IG % 1.3 % Critically high 0.0-0.5 [facility] Comment on above: Performed By: #### C BC ####[facility] Bnbzxqcdkd84[address] [place], [place] [address]DrGerman Antonella Mitchell LYMPH # 2.1 103/ul Normal 1.2-3.8 [facility] Comment on above: Performed By: #### C BC ####[facility] Ipgtlrexhh[address] [place], [place] [address]DrGerman Mariafilemon Medrano Lymphocytes/100 WBC (Bld) 27.4 % Normal 20.5-60.0 [facility] Comment on above: Performed By: #### C BC ####[facility] Xdiqhuozlc[address] [place], [place] [address]DrGerman Mariafilemon Medrano MANUAL DIFF REQ NO Normal [facility] Comment on above: Performed By: #### C BC ####[facility] Aykecnlyqh48[address] [place], [place] [address]DrGerman Antonella Mitchell MCH (RBC) [Entitic mass] 28.6 pg Normal 26.7-34.0 [facility] Comment on above: Performed By: #### C BC ####[facility] Bucbnwgype033[address] [place], [place] [address]DrGerman Antonella Mitchell MCHC (RBC) [Mass/Vol] 32.3 g/dL Normal 29.9-35.2 [facility] Comment on above: Performed By: #### C BC ####[facility] Kzcsgunbdq47[address] [place], [place] [address]DrGerman Antonella Mitchell MCV (RBC) [Entitic vol] 88.7 fL Normal 81.0-99.0 [facility] Comment on above: Performed By: #### C BC ####[facility] Lmcglowkwx637[address] [place], [place] [address]Dr. Antonella Medrano MONO # 0.7 103/ul Normal 0.3-0.8 [facility] Comment on above: Performed By: #### C BC ####[facility] Dsvkszekig5352 [place] [address]Dr. Antonella Medrano Monocytes/100 WBC (Bld) 8.6 % Normal 1.7-12.0 [facility] Comment on above: Performed By: #### C BC ####[facility] Mkqakiouum8963 [place] [address]Dr. Antonella Medrano NEUT # 4.6 103/ul Normal 1.4-6.5 [facility] Comment on above: Performed By: #### C BC ####[facility] Qyqmzjdxda9927 [place] [address]Dr. Antonella Medrano Neutrophils/100 WBC (Bld) 59.3 % Normal 43.0-75.0 [facility] Comment on above: Performed By: #### C BC ####[facility] Xcmnjbghwb8[address] [place], [place] [address]Dr. Antonella Medrano Platelet mean volume (Bld) [Entitic vol] 9.9 fL Normal 9.5-13.5 [facility] Comment on above: Performed By: #### C BC ####[facility] Ijegwswmas1406 [place] [address]Dr. Antonella Medrano PLT 278 103/ul Normal 150-450 [facility] Comment on above: Performed By: #### C BC ####[facility] Mbfhksxmwe9478 [place] [address]Dr. Antonella Medrano RBC 4.23 106/ul Normal 4.20-5.40 [facility] Comment on above: Performed By: #### C BC ####[facility] Xomdqyttse8193 [place] [address]Dr. Antonella Medrano WBC 7.7 103/ul Normal 4.0-11.0 [facility] Comment on above: Performed By: #### C BC ####[facility] Mfvmciifqr96[address] [place], [place] [address]Dr. Antonella Medrano MAGNESIUMon 01-02-2023 Magnesium [Mass/Vol] 1.3 mg/dL Critically low 1.8-2.4 [facility] Comment on above: Performed By: #### M G ####[facility] Neolplvwfi[address] [place], [place] [address]Dr. Antonella Medrano POINT OF CARE GLUCOSEon 12-22 Glucose [Mass/Vol] 307 mg/dL Critically high 74-[address] [facility] Comment on above: Performed By: #### P OCGLUC ####[facility] Tnupczisiu88[address] [place], [place] [address]Dr. Antonella Medrano Glucose [Mass/Vol] 242 mg/dL Critically high 74-[address] [facility] Comment on above: Performed By: #### P OCGLUC ####[facility] Mjemuqqdwy39[address] [place], [place] [address]Dr. Antonella Medrano PROF CHEM 8 (BAS METB)on Anion gap [Moles/Vol] 11.5 mmol/L Normal [facility] Comment on above: Performed By: #### B MP ####[facility] Jkhhnhrwlh[address] [place], [place] [address]Dr. Antonella Medrano Calcium [Mass/Vol] 8.5 mg/dL Normal 8.5-10.1 [facility] Comment on above: Performed By: #### B MP ####[facility] Tdaudyjznm[address] [place], [place] [address]Dr. Antonella Medrano Chloride [Moles/Vol] 106 mmol/L Normal 98-107 [facility] Comment on above: Performed By: #### B MP ####[facility] Fympazvvlv24[address] [place], [place] [address]Dr. Antonella Medrano CO2 [Moles/Vol] 25.8 mmol/L Normal 21.0-32.0 [facility] Comment on above: Performed By: #### B MP ####[facility] Louzcpuqzt66[address] [place], [place] [address]Dr. Antonella Medrano Creatinine [Mass/Vol] 0.81 mg/dL Normal 0.55-1.02 [facility] Comment on above: Performed By: #### B MP ####[facility] Vrdyigrxsj59[address] [place] [id number]. Antonella Medrano EGFR-AF GUATEMALAN >60 Normal >=60 [facility] Comment on above: Performed By: #### B MP ####[facility] Dtqcsvcyyn46[address] [place], [place] [address]Dr. Antonella Medrano EGFR-NON AF GUATEMALAN >60 Normal >=60 [facility] Comment on above: Performed By: #### B MP ####[facility] Afpuilecre8351 [place] [address]Dr. Antonella Medrano Glucose [Mass/Vol] 185 mg/dL Critically high 74-106 T [facility] Comment on above: Performed By: #### B MP ####[facility] Aodrokjows65[address] [place], [place] [address]Dr. Antonella Medrano Potassium [Moles/Vol] 4.3 mmol/L Normal 3.5-5.1 [facility] Comment on above: Performed By: #### B MP ####[facility] Xdgrwnscab29[address] [place], [place] [address]Dr. Antonella Medrano Sodium [Moles/Vol] 139 mmol/L Normal 136-145 [facility] Comment on above: Performed By: #### B MP ####[facility] Yzinnpdxhr[address] [place], [place] [address]Dr. Antonella Medrano Urea nitrogen [Mass/Vol] 17.0 mg/dL Normal 7.0-18.0 [facility] Comment on above: Performed By: #### B MP ####[facility] Avgioyntit8[address] [place], [place] [address]Dr. Antonella Medrano Urea nitrogen/Creatinine [Mass ratio] 21.0 mg/mg Normal [facility] Comment on above: Performed By: #### B MP ####[facility] Rbcjjqcsre0[address] [place], [place] [address]Dr. Antonella Medrano CBC AUTO DIFFon 01-01-2023 BASO # 0.0 103/ul Normal 0.0-0.1 [facility] Comment on above: Performed By: #### C BC ####[facility] Bdsrzgrmef2778 [place] [id number]. Antonella Medrano Basophils/100 WBC (Bld) 0.3 % Normal 0.2-2.0 [facility] Comment on above: Performed By: #### C BC ####[facility] Nohoxbekik4978 [place] [id number]. Antonella Medrano EO # 0.1 103/ul Normal 0.0-0.7 [facility] Comment on above: Performed By: #### C BC ####[facility] Wmzuvkiege1282 [place] [address]Dr. Antonella Medrano Eosinophils/100 WBC (Bld) 1.4 % Normal 0.9-7.0 [facility] Comment on above: Performed By: #### C BC ####[facility] Riusdvmqse[address] [place], [place] [address]Dr. Antonella Medrano Erythrocyte distribution width (RBC) [Ratio] 13.9 % Normal 11.0-15.0 [facility] Comment on above: Performed By: #### C BC ####[facility] Xurogkdddg[address] [place], [place] [id number]. Antonella Medrano Hematocrit (Bld) [Volume fraction] 38.0 % Normal 36.0-48.0 [facility] Comment on above: Performed By: #### C BC ####[facility] Ozblizpczw[address] [place], [place] [address]Dr. Antonella Medrano Hemoglobin (Bld) [Mass/Vol] 12.6 g/dL Normal 12.0-16.0 [facility] Comment on above: Performed By: #### C BC ####[facility] Tbjdpimthd0077 [place] [id number]. Antonella Medrano IG # 0.15 10e3/ul Critically high 0.00-0.03 [facility] Comment on above: Performed By: #### C BC ####[facility] Qrumflacsb6963 [place] [id number]. Antonella Medrano IG % 1.5 % Critically high 0.0-0.5 [facility] Comment on above: Performed By: #### C BC ####[facility] Hvoxgdurgg5715 [place] [id number]. Antonella Medrano LYMPH # 1.6 103/ul Normal 1.2-3.8 [facility] Comment on above: Performed By: #### C BC ####[facility] Ougmybshnt0927 [place], [place] [address]Kr. Antonella Medrano Lymphocytes/100 WBC (Bld) 15.5 % Critically low 20.5-60.0 [facility] Comment on above: Performed By: #### C BC ####[facility] Ykvqfeohty9334 [place] [id number]. Antonella Medrano MANUAL DIFF REQ NO Normal [facility] Comment on above: Performed By: #### C BC ####[facility] Fqscropguv8525 [place] [id number]. Antonella Medrano MCH (RBC) [Entitic mass] 29.5 pg Normal 26.7-34.0 [facility] Comment on above: Performed By: #### C BC ####[facility] Kkqlvtxcxj4551 [place] [id number]. Antonella Medrano MCHC (RBC) [Mass/Vol] 33.2 g/dL Normal 29.9-35.2 [facility] Comment on above: Performed By: #### C BC ####[facility] Ozynixkvgj3028 [place] [id number]. Antonella Medrano MCV (RBC) [Entitic vol] 89.0 fL Normal 81.0-99.0 [facility] Comment on above: Performed By: #### C BC ####[facility] Wigupyyhpk0555 [place] [id number]. Antonella Medrano MONO # 0.9 103/ul Critically high 0.3-0.8 [facility] Comment on above: Performed By: #### C BC ####[facility] Gtfpgvzxzc4082 [place] [id number]. Antonella Medrano Monocytes/100 WBC (Bld) 9.4 % Normal 1.7-12.0 [facility] Comment on above: Performed By: #### C BC ####[facility] Chgahzhgfq3830 [place] [id number]. Antonella Medrano NEUT # 7.2 103/ul Critically high 1.4-6.5 [facility] Comment on above: Performed By: #### C BC ####[facility] Pvmvsdzbjb0386 [place] [id number]. Antonella Medrano Neutrophils/100 WBC (Bld) 71.9 % Normal 43.0-75.0 [facility] Comment on above: Performed By: #### C BC ####[facility] Lidtgkcbgc2858 [place] [id number]. Antonella Medrano Platelet mean volume (Bld) [Entitic vol] 9.8 fL Normal 9.5-13.5 [facility] Comment on above: Performed By: #### C BC ####[facility] Zhdqyrqvih7691 [place] [id number]. Antonella Medrano PLT 266 103/ul Normal 150-450 [facility] Comment on above: Performed By: #### C BC ####[facility] Syomdblqfv8448 [place] [id number]. Antonella Medrano RBC 4.27 106/ul Normal 4.20-5.40 [facility] Comment on above: Performed By: #### C BC ####[facility] Uynjlxxwbe0601 [place] [id number]. Antonella Medrano WBC 10.0 103/ul Normal 4.0-11.0 [facility] Comment on above: Performed By: #### C BC ####[facility] Hwuhdphuww[address] [place], [place] [address]Dr. Antonella Medrano Covid-19 PCR ([facility]on 12-22 SARS-CoV-2 (COVID-19) RNA TAISHA+probe Ql (Unsp spec) Not detected Normal NOT DETECTED [facility] Comment on above: Result Comment: When [...] for this test is supported by the [place] of [employer] and Human Service's declaration that [...] be used). Performed By: #### C VDTB ####[facility] Pzchgsolgy2[address] [place], [place] [address]Dr. Antonella Medrano ER URINE PROFILEon 3 Bilirubin Ql (U) Negative Normal NEGATIVE [facility] Comment on above: Performed By: #### HALEY CLARK ####[facility] Osbghjctah[address] [place], [place] [address]Dr. Antonella Medrano Clarity (U) CLEAR Normal CLEAR [facility] Comment on above: Performed By: #### LATA CLARKRO ####[facility] Fosyoemext[address] [place], [place] [address]Dr. Antonella Medrano Color (U) LT. YELLOW Normal YELLOW [facility] Comment on above: Performed By: #### LATA CLARKRO ####[facility] Gsdisyoptv[address] [place], [place] [address]Dr. Antonella Medrano ERUAHD A micrscopic examina tion will be performed if indicated. Normal [facility] Comment on above: Performed By: #### LATA CLARKRO ####[facility] Vvqlmbftjk8[address] [place], [place] [address]Dr. Antonella Medrano Glucose Ql (U) 100 mg/dl Abnormal NEGATIVE [facility] Comment on above: Performed By: #### LATA CLARKRO ####[facility] Byclpprmzf[address] [place], [place] [address]Dr. Antonella Medrano Hemoglobin Ql (U) TRACE-INTACT Abnormal NEGATIVE [facility] Comment on above: Performed By: #### HALEY CLARK ####[facility] Zklyuclzbi[address] [place] [address]Dr. Antonella Medrano Ketones Ql (U) Negative Normal NEGATIVE [facility] Comment on above: Performed By: #### HALEY CLARK ####[facility] Effuyrwiws85[address] [place] [address]Dr. Antonella Medrano LEUKOCYTES MODERATE Abnormal NEGATIVE [facility] Comment on above: Performed By: #### LATA CLARKRO ####[facility] Eyvthdeupb3863 [place] [address]Dr. Antonella Medrano Nitrite Ql (U) Negative Normal NEGATIVE [facility] Comment on above: Performed By: #### HALEY CLARK ####[facility] Egszntptas6375 [place] [address]Dr. Antonella Medrano pH (U) 5.5 [pH] Normal 5-9 [facility] Comment on above: Performed By: #### HALEY CLARK ####[facility] Qswdrrpsrb[address] [place], [place] [address]Dr. Antonella Medrano SPEC GRAVITY 1.010 Normal 1.005-<=1.[address] [place] [address] Comment on above: Performed By: #### HALEY CLARK ####[facility] Yeqbrjpkzt7444 [place] [address]Dr. Antonella Medrano UA PROTEIN TRACE Normal NEGATIVE/ TRACE [facility] Comment on above: Performed By: #### HALEY CLARK ####[facility] Fxrfejdxpa54[address] [place], [place] [address]Dr. Antonella Medrano UR MICRO IND INDICATED Normal [facility] Comment on above: Performed By: #### HALEY CLARK ####[facility] Tgqudltbpy[address] [place], [place] [address]Dr. Antonella Medrano Urobilinogen Qn (U) 0.2 {Oleg'U}/dL Normal 0.2 - 1. 0 [facility] Comment on above: Performed By: #### HALEY CLARK ####[facility] Zyzgymrfkk24[address] [place] [address]Dr. Antonella Medrano MAGNESIUMon 01-01-2023 Magnesium [Mass/Vol] 0.9 mg/dL Critically low 1.8-2.4 [facility] Comment on above: Performed By: #### M G ####[facility] Vhsrbinuhy8[address] [place] [address]Dr. Antonella Medrano POINT OF CARE GLUCOSEon 12-22 Glucose [Mass/Vol] 133 mg/dL Critically high 74-[address] [facility] Comment on above: Performed By: #### P OCGLUC ####[facility] Iwiwjewxlz8743 [place] [address]Dr. Antonella Medrano Glucose [Mass/Vol] 114 mg/dL Critically high 74-[address] [facility] Comment on above: Performed By: #### P OCGLUC ####[facility] Rvmqweyfha8725 [place] [address]Dr. Antonella Medrano PROF 14(COMP METB)on 023 Albumin [Mass/Vol] 2.5 g/dL Critically low 3.4-5.0 [facility] Comment on above: Performed By: #### C MP ####[facility] Wqeufedsrc2484 [place] [address]Dr. Antonella Medrano Albumin/Globulin [Mass ratio] 0.7 {ratio} Normal [facility] Comment on above: Performed By: #### C MP ####[facility] Wnqtvjqxdd8355 [place] [address]Dr. Antonella Medrano ALP [Catalytic activity/Vol] 97 U/L Normal 46-116 [facility] Comment on above: Performed By: #### C MP ####[facility] Aqsnglhzmk9185 [place] [address]Dr. Antonella Medrano ALT [Catalytic activity/Vol] 15 U/L Normal 14-59 [facility] Comment on above: Performed By: #### C MP ####[facility] Podpjipgos6609 [place] [address]Dr. Antonella Medrano Anion gap [Moles/Vol] 14.4 mmol/L Normal [facility] Comment on above: Performed By: #### C MP ####[facility] Xbvpjssicd9814 [place] [id number]. Antonella Medrano AST [Catalytic activity/Vol] 11 U/L Critically low 15-37 [facility] [facility] Comment on above: Performed By: #### C MP ####[facility] Gtiolurszs[address] [place] [id number]. Antonella Medrano Bilirubin [Mass/Vol] 0.2 mg/dL Normal 0.2-1.0 [facility] Comment on above: Performed By: #### C MP ####[facility] Luieegekdp[address] [place], [place] [address]Dr. Antonella Medrano Calcium [Mass/Vol] 8.6 mg/dL Normal 8.5-10.1 [facility] Comment on above: Performed By: #### C MP ####[facility] Bvnrnkjfxf4[address] [place], [place] [address]Dr. Antonella Medrano Chloride [Moles/Vol] 105 mmol/L Normal 98-107 [facility] Comment on above: Performed By: #### C MP ####[facility] Yxuhsctmjf7[address] [place], [place] [address]Dr. Antonella Medrano CO2 [Moles/Vol] 26.8 mmol/L Normal 21.0-32.0 [facility] Comment on above: Performed By: #### C MP ####[facility] Ymzgvrbwmy12[address] [place], [place] [address]Dr. Antonella Medrano Creatinine [Mass/Vol] 0.83 mg/dL Normal 0.55-1.02 [facility] Comment on above: Performed By: #### C MP ####[facility] Azcgulsjum[address] [place] [id number]. Antonella Medrano EGFR-AF GUATEMALAN >60 Normal >=60 [facility] Comment on above: Performed By: #### C MP ####[facility] Ljigpfyeew[address] [place] [id number]. Antonella Medrano EGFR-NON AF GUATEMALAN >60 Normal >=60 [facility] Comment on above: Performed By: #### C MP ####[facility] Pvkttcckun16[address] [place] [id number]. Antonella Medrano Globulin (S) [Mass/Vol] 3.4 g/dL Normal [facility] Comment on above: Performed By: #### C MP ####[facility] Nssqyttvsq24[address] [place] [id number]. Antonella Medrano Glucose [Mass/Vol] 148 mg/dL Critically high 74-106 T [facility] Comment on above: Performed By: #### C MP ####[facility] Vzyjyoivyz6156 [place] [id number]. Antonella Medrano Potassium [Moles/Vol] 4.2 mmol/L Normal 3.5-5.1 [facility] Comment on above: Performed By: #### C MP ####[facility] Uiadapqsuy30[address] [place] [address]Dr. Antonella Medrano Protein [Mass/Vol] 5.9 g/dL Critically low 6.4-8.2 [facility] Comment on above: Performed By: #### C MP ####[facility] Mjbmwtoyzn7376 [place] [address]Dr. Antonella Medrano Sodium [Moles/Vol] 142 mmol/L Normal 136-145 [facility] Comment on above: Performed By: #### C MP ####[facility] Gcaemagoek74[address] [place] [address]Dr. Antonella Medrano Urea nitrogen [Mass/Vol] 21.0 mg/dL Critically high 7.0-18.0 [facility] Comment on above: Performed By: #### C MP ####[facility] Zhefptuwqk24[address] [place] [address]Dr. Antonella Medrano Urea nitrogen/Creatinine [Mass ratio] 25.3 mg/mg Normal [facility] Comment on above: Performed By: #### C MP ####[facility] Ylbztcubmm9807 [place] [address]Dr. Antonella Medrano URINE MICROSCOPIC ONLYon BACTERIA TRACE Abnormal NONE SEEN [facility] Comment on above: Performed By: #### E HALEY LEE ####[facility] Obvhfqwgtn280[address] [place] [address]Dr. Antonella Medrano Bacteria identified Cx Nom (U) INDICATED Normal [facility] Comment on above: Performed By: #### LATA CLARKRO ####[facility] Washkcbocq30[address] [place] [address]Dr. Antonella Medrano CAST NONE SEEN Normal NONE SEEN [facility] Comment on above: Performed By: #### LATA CLARKRO ####[facility] Qsoglhndmm1286 [place] [address]Dr. Antonella Medrano Crystals LM Nom (Urine sed) NONE SEEN Normal NONE SEEN [facility] Comment on above: Performed By: #### HALEY CLARK ####[facility] Pswcamcqly[address] [place], [place] [address]Dr. Antonella Medrano Epithelial cells LM Ql (Urine sed) RARE Normal NONE SEEN /RARE [facility] Comment on above: Performed By: #### LATA CLARKRO ####[facility] Koycdagskb3535[address] [place], [place] [address]Dr. Antonella Medrano MUCOUS NONE SEEN Normal NONE SEEN [facility] Comment on above: Performed By: #### HALEY CLARK ####[facility] Amcqzcxnxy37[address] [place], [place] [address]Dr. Antonella Medrano RBC 2-5 Abnormal 0-2 [facility] Comment on above: Performed By: #### HALEY CLARK ####[facility] Vzoomvmiup9[address] [place], [place] [address]Dr. Antonella Medrano WBC 10-20 Abnormal NONE SEEN [facility] Comment on above: Performed By: #### LATA CLARKRO ####[facility] Sojnnaialv6357[address] [place], [place] [address]Dr. Antonella Medrano CBC AUTO DIFFon 11-13-2022 BASO # 0.0 103/ul Normal 0.0-0.1 [facility] Comment on above: Performed By: #### C BC ####[facility] Yjkhkayecn4[address] [place], [place] [address]Dr. Antonella Medrano Basophils/100 WBC (Bld) 0.4 % Normal 0.2-2.0 [facility] Comment on above: Performed By: #### C BC ####[facility] Uomlonbjpb9554[address] [place], [place] [address]Dr. Antonella Medrano EO # 0.3 103/ul Normal 0.0-0.7 [facility] Comment on above: Performed By: #### C BC ####[facility] Fwylifeebk9[address] [place], [place] [address]Dr. Antonella Medrano Eosinophils/100 WBC (Bld) 3.2 % Normal 0.9-7.0 [facility] Comment on above: Performed By: #### C BC ####[facility] Ucpbxiewdh517[address] [place], [place] [address]Dr. Antonella Medrano Erythrocyte distribution width (RBC) [Ratio] 13.0 % Normal 11.0-15.0 [facility] Comment on above: Performed By: #### C BC ####[facility] Crldftlcty22[address] [place], [place] [address]Dr. Antonella Medrano Hematocrit (Bld) [Volume fraction] 39.4 % Normal 36.0-48.0 [facility] Comment on above: Performed By: #### C BC ####[facility] Dsbdqhpxqn208[address] [place], [place] [address]Dr. Antonella Medrano Hemoglobin (Bld) [Mass/Vol] 13.3 g/dL Normal 12.0-16.0 [facility] Comment on above: Performed By: #### C BC ####[facility] Vnqpmzzqno[address] [place], [place] [address]Dr. Antonella Medrano IG # 0.08 10e3/ul Critically high 0.00-0.03 [facility] Comment on above: Performed By: #### C BC ####[facility] Anlamitear687[address] [place], [place] [address]Dr. Antonella Medrano IG % 0.9 % Critically high 0.0-0.5 [facility] Comment on above: Performed By: #### C BC ####[facility] Amzlkflqhk9174[address] [place], [place] [address]Dr. Mariafilemon Medrano LYMPH # 1.6 103/ul Normal 1.2-3.8 [facility] Comment on above: Performed By: #### C BC ####[facility] Vlwzvfcagj06[address] [place] [address]Dr. Mariafilemon Medrano Lymphocytes/100 WBC (Bld) 18.7 % Critically low 20.5-60.0 [facility] Comment on above: Performed By: #### C BC ####[facility] Roqyfdqacz7697 [place] [address]Dr. Mariafilemon Medrano MANUAL DIFF REQ NO Normal [facility] Comment on above: Performed By: #### C BC ####[facility] Ifkqcwgcdi1750 [place] [address]Dr. Antonella Mitchell MCH (RBC) [Entitic mass] 28.9 pg Normal 26.7-34.0 [facility] Comment on above: Performed By: #### C BC ####[facility] Nmagcqwmqr5832 [place] [address]Dr. Antonella Mitchell MCHC (RBC) [Mass/Vol] 33.8 g/dL Normal 29.9-35.2 [facility] Comment on above: Performed By: #### C BC ####[facility] Pbjvyomkzh8766 [place] [address]Dr. Antonella Medrano MCV (RBC) [Entitic vol] 85.7 fL Normal 81.0-99.0 [facility] Comment on above: Performed By: #### C BC ####[facility] Ilkuvouinb5216 [place] [address]Dr. Antonella Medrano MONO # 0.9 103/ul Critically high 0.3-0.8 [facility] Comment on above: Performed By: #### C BC ####[facility] Bzzfhyjmtx0330 [place] [address]Dr. Antonella Medrano Monocytes/100 WBC (Bld) 10.4 % Normal 1.7-12.0 [facility] Comment on above: Performed By: #### C BC ####[facility] Sblnessmjd6589 [place] [address]Dr. Antonella Medrano NEUT # 5.7 103/ul Normal 1.4-6.5 [facility] Comment on above: Performed By: #### C BC ####[facility] Ljzfopylrk7[address] [place] [address]Dr. Antonella Medrano Neutrophils/100 WBC (Bld) 66.4 % Normal 43.0-75.0 [facility] Comment on above: Performed By: #### C BC ####[facility] Xrqtbwqzbo0696 [place] [address]Dr. Antonella Medrano Platelet mean volume (Bld) [Entitic vol] 10.8 fL Normal 9.5-13.5 [facility] Comment on above: Performed By: #### C BC ####[facility] Azqgpszdtk4[address] [place] [address]Dr. Antonella Medrano PLT 255 103/ul Normal 150-450 [facility] Comment on above: Performed By: #### C BC ####[facility] Sahustukvk5[address] [place], [place] [address]Dr. Antonella Medrano RBC 4.60 106/ul Normal 4.20-5.40 [facility] Comment on above: Performed By: #### C BC ####[facility] Xcljipnhxr[address] [place], [place] [address]Dr. Antonella Medrano WBC 8.6 103/ul Normal 4.0-11.0 [facility] Comment on above: Performed By: #### C BC ####[facility] Gunoazgnia88[address] [place], [place] [address]Dr. Antonella Medrano POINT OF CARE GLUCOSEon - Glucose [Mass/Vol] 317 mg/dL Critically high 74-[address] [facility] Comment on above: Performed By: #### P OCGLUC ####[facility] Biogrwnrdp1986[address] [place], [place] [address]Dr. Antonella Medrano Glucose [Mass/Vol] 328 mg/dL Critically high 74-[address] [facility] Comment on above: Performed By: #### P OCGLUC ####[facility] Qdenzgrmxj6523[address] [place], [place] [address]Dr. Antonella Mitchell Glucose [Mass/Vol] 234 mg/dL Critically high 74-[address] [facility] Comment on above: Performed By: #### P OCGLUC ####[facility] Ixsqzuezlt0587 [place] [address]Dr. Antonella Medrano Glucose [Mass/Vol] 343 mg/dL Critically high 74-[address] [facility] Comment on above: Performed By: #### P OCGLUC ####[facility] Ndntkiqsqn4815 [place] [address]Dr. Antonella Medrano Glucose [Mass/Vol] 284 mg/dL Critically high 74-[address] [facility] Comment on above: Performed By: #### P OCGLUC ####[facility] Pqkeduwrfj18[address] [place], [place] [address]Dr. Mariafilemon Medrnao PROF 14(COMP METB)on 11-13- 023 Albumin [Mass/Vol] 2.5 g/dL Critically low 3.4-5.0 [facility] Comment on above: Performed By: #### C MP ####[facility] Reybqhdudz74[address] [place], [place] [address]Dr. Antonella Mitchell Albumin/Globulin [Mass ratio] 0.9 {ratio} Normal [facility] Comment on above: Performed By: #### C MP ####[facility] Eaixmwmypr15[address] [place], [place] [address]Dr. Mariafilemon Mitchell ALP [Catalytic activity/Vol] 121 U/L Critically high 46-116 [facility] Comment on above: Performed By: #### C MP ####[facility] Sxzpqkpqcn2551 [place] [address]Dr. Mariafilemon Medrano ALT [Catalytic activity/Vol] 19 U/L Normal 14-59 [facility] Comment on above: Performed By: #### C MP ####[facility] Warmfzlase1179 [place] [address]Dr. Antonella Medrano Anion gap [Moles/Vol] 11.0 mmol/L Normal [facility] Comment on above: Performed By: #### C MP ####[facility] Oyxundsdbk37[address] [place], [place] [address]Dr. Antonella Medrano AST [Catalytic activity/Vol] 19 U/L Normal 15-37 [facility] Comment on above: Performed By: #### C MP ####[facility] Ojmbfsnzxj3900 [place] [address]Dr. Antonella Medrano Bilirubin [Mass/Vol] 0.3 mg/dL Normal 0.2-1.0 [facility] Comment on above: Performed By: #### C MP ####[facility] Bpehxvorip396[address] [place], [place] [address]Dr. Antonella Medrano Calcium [Mass/Vol] 8.8 mg/dL Normal 8.5-10.1 [facility] Comment on above: Performed By: #### C MP ####[facility] Rkvhcoybbn6[address] [place], [place] [address]Dr. Antonella Medrano Chloride [Moles/Vol] 103 mmol/L Normal 98-107 [facility] Comment on above: Performed By: #### C MP ####[facility] Ljuorvgpdo56[address] [place], [place] [address]Dr. Antonella Medrano CO2 [Moles/Vol] 27.2 mmol/L Normal 21.0-32.0 [facility] Comment on above: Performed By: #### C MP ####[facility] Tlowjlncdo8939[address] [place], [place] [address]Dr. Antonella Medrano Creatinine [Mass/Vol] 0.58 mg/dL Normal 0.55-1.02 [facility] Comment on above: Performed By: #### C MP ####[facility] Yzdnvgxfqo0823[address] [place], [place] [address]Dr. Antonella Mitchell EGFR-AF GUATEMALAN >60 Normal >=60 [facility] Comment on above: Performed By: #### C MP ####[facility] Xaaekhfuma00[address] [place], [place] [address]Dr. Mariafilemon Mitchell EGFR-NON AF GUATEMALAN >60 Normal >=60 [facility] Comment on above: Performed By: #### C MP ####[facility] Uffxiuhudm38[address] [place], [place] [address]Dr. Antonella Mitchell Globulin (S) [Mass/Vol] 2.7 g/dL Normal [facility] Comment on above: Performed By: #### C MP ####[facility] Tuwibymqyj7862 [place] [address]Dr. Antonella Medrano Glucose [Mass/Vol] 245 mg/dL Critically high 74-106 T [facility] Comment on above: Performed By: #### C MP ####[facility] Eqefikhwsz8220 [place] [address]Dr. Antonella Mitchell Potassium [Moles/Vol] 4.2 mmol/L Normal 3.5-5.1 [facility] Comment on above: Performed By: #### C MP ####[facility] Mciwzfbwpu2896[address] [place], [place] [address]Dr. Antonella Mitchell Protein [Mass/Vol] 5.2 g/dL Critically low 6.4-8.2 [facility] Comment on above: Performed By: #### C MP ####[facility] Cpezlnpaiu8698[address] [place], [place] [address]Dr. Mariafilemon Medrano Sodium [Moles/Vol] 137 mmol/L Normal 136-145 [facility] Comment on above: Performed By: #### C MP ####[facility] Znwkcwpjpc235[address] [place], [place] [address]Dr. Antonella Mitchell Urea nitrogen [Mass/Vol] 24.0 mg/dL Critically high 7.0-18.0 [facility] Comment on above: Performed By: #### C MP ####[facility] Odalddjjil9613[address] [place], [place] [address]Dr. Antonella Mitchell Urea nitrogen/Creatinine [Mass ratio] 41.4 mg/mg Normal [facility] Comment on above: Performed By: #### C MP ####[facility] Wtslryyhrm[address] [place], [place] [id number]. Mariafilemon Mitchell CBC AUTO DIFFon 11-12-2022 BASO # 0.0 103/ul Normal 0.0-0.1 [facility] Comment on above: Performed By: #### C BC ####[facility] Niyfxaepyl2857[address] [place], [place] [address]Dr. Antonella Medrano Basophils/100 WBC (Bld) 0.5 % Normal 0.2-2.0 [facility] Comment on above: Performed By: #### C BC ####[facility] Ikbpiimhfs354[address] [place], [place] [address]DrGerman Medrano EO # 0.3 103/ul Normal 0.0-0.7 [facility] Comment on above: Performed By: #### C BC ####[facility] Mlnonwolcb5455[address] [place], [place] [address]Dr. Antonella Medrano Eosinophils/100 WBC (Bld) 3.5 % Normal 0.9-7.0 [facility] Comment on above: Performed By: #### C BC ####[facility] Kzfplabryq145[address] [place], [place] [address]Dr. Antonella Medrano Erythrocyte distribution width (RBC) [Ratio] 13.1 % Normal 11.0-15.0 [facility] Comment on above: Performed By: #### C BC ####[facility] Hwvlrppwoe3185[address] [place], [place] [address]Dr. Antonella Medrano Hematocrit (Bld) [Volume fraction] 39.4 % Normal 36.0-48.0 [facility] Comment on above: Performed By: #### C BC ####[facility] Jgmilsqapf0389[address] [place], [place] [address]Dr. Antonella Medrano Hemoglobin (Bld) [Mass/Vol] 13.3 g/dL Normal 12.0-16.0 [facility] Comment on above: Performed By: #### C BC ####[facility] Cylkwdbahm2438[address] [place], [place] [address]Dr. Antonella Medrano IG # 0.11 10e3/ul Critically high 0.00-0.03 [facility] Comment on above: Performed By: #### C BC ####[facility] Qirdumahjo8677[address] [place], [place] [address]Dr. Antonella Medrano IG % 1.3 % Critically high 0.0-0.5 [facility] Comment on above: Performed By: #### C BC ####[facility] Axvvbiyyoi2822[address] [place], [place] [address]DrGerman Medrano LYMPH # 2.0 103/ul Normal 1.2-3.8 [facility] Comment on above: Performed By: #### C BC ####[facility] Jybabpjyqk4381 [place] [address]DrGerman Medrano Lymphocytes/100 WBC (Bld) 22.9 % Normal 20.5-60.0 [facility] Comment on above: Performed By: #### C BC ####[facility] Aexrmgjzvm407[address] [place], [place] [address]DrGerman Medrano MANUAL DIFF REQ NO Normal [facility] Comment on above: Performed By: #### C BC ####[facility] Tketklpfbv7847[address] [place], [place] [address]DrGerman Medrano MCH (RBC) [Entitic mass] 29.2 pg Normal 26.7-34.0 [facility] Comment on above: Performed By: #### C BC ####[facility] Rrdsddfwwk6[address] [place], [place] [address]DrGerman Medrano MCHC (RBC) [Mass/Vol] 33.8 g/dL Normal 29.9-35.2 [facility] Comment on above: Performed By: #### C BC ####[facility] Rlgbyjxebo768[address] [place], [place] [address]DrGerman Medrano MCV (RBC) [Entitic vol] 86.6 fL Normal 81.0-99.0 [facility] Comment on above: Performed By: #### C BC ####[facility] Ccjquirmfv2760[address] [place], [place] [address]DrGerman Medrano MONO # 0.8 103/ul Normal 0.3-0.8 [facility] Comment on above: Performed By: #### C BC ####[facility] Lvinjbbvah498[address] [place], [place] [address]DrGerman Medrano Monocytes/100 WBC (Bld) 9.2 % Normal 1.7-12.0 [facility] Comment on above: Performed By: #### C BC ####[facility] Iqhhktbkph12[address] [place], [place] [address]DrGerman Medrano NEUT # 5.4 103/ul Normal 1.4-6.5 [facility] Comment on above: Performed By: #### C BC ####[facility] Sfgkbolksj8248 [place] [address]Dr. Mariafilemon Medrano Neutrophils/100 WBC (Bld) 62.6 % Normal 43.0-75.0 [facility] Comment on above: Performed By: #### C BC ####[facility] Cerkxjpeqq3968 [place] [address]Dr. Mariafilemon Medrano Platelet mean volume (Bld) [Entitic vol] 10.8 fL Normal 9.5-13.5 [facility] Comment on above: Performed By: #### C BC ####[facility] Mzulbbqhmg0230 [place] [address]Dr. Antonella Medrano PLT 247 103/ul Normal 150-450 [facility] Comment on above: Performed By: #### C BC ####[facility] Llvpqgnsfz[address] [place], [place] [address]Dr. Antonella Medrano RBC 4.55 106/ul Normal 4.20-5.40 [facility] Comment on above: Performed By: #### C BC ####[facility] Pxcrmhesra9486[address] [place], [place] [address]Dr. Antonella Medrano WBC 8.6 103/ul Normal 4.0-11.0 [facility] Comment on above: Performed By: #### C BC ####[facility] Mccqfgqpbh1478 [place] [address]Dr. Antonella Medrano POINT OF CARE GLUCOSEon 10-25 0 Glucose [Mass/Vol] 299 mg/dL Critically high 74-[address] [facility] Comment on above: Performed By: #### P OCGLUC ####[facility] Xoheaiuini59[address] [place], [place] [address]Dr. Antonella Medrano Glucose [Mass/Vol] 232 mg/dL Critically high 74-[address] [facility] Comment on above: Performed By: #### P OCGLUC ####[facility] Nvkhylkdzb9763 [place] [address]Dr. Antonella Medrano PROF 14(COMP METB)on 023 Albumin [Mass/Vol] 2.4 g/dL Critically low 3.4-5.0 [facility] Comment on above: Performed By: #### C MP ####[facility] Tahgqkyzxn78[address] [place], [place] [address]Dr. Antonella Medrano Albumin/Globulin [Mass ratio] 0.8 {ratio} Normal [facility] Comment on above: Performed By: #### C MP ####[facility] Cnstzwccen39[address] [place], [place] [address]Dr. Antonella Medrano ALP [Catalytic activity/Vol] 115 U/L Normal 46-116 [facility] Comment on above: Performed By: #### C MP ####[facility] Kclywovniy9[address] [place], [place] [address]Dr. Antonella Medrano ALT [Catalytic activity/Vol] 15 U/L Normal 14-59 [facility] Comment on above: Performed By: #### C MP ####[facility] Zkujqhzlpf68[address] [place], [place] [address]Dr. Antonella Medrano Anion gap [Moles/Vol] 11.2 mmol/L Normal [facility] Comment on above: Performed By: #### C MP ####[facility] Vtebnutzjx3[address] [place], [place] [address]Dr. Antonella Medrano AST [Catalytic activity/Vol] 17 U/L Normal 15-37 [facility] Comment on above: Performed By: #### C MP ####[facility] Jqbeefmwcw[address] [place], [place] [address]Dr. Antonella Medrano Bilirubin [Mass/Vol] 0.3 mg/dL Normal 0.2-1.0 [facility] Comment on above: Performed By: #### C MP ####[facility] Zlmiczvkzt2286[address] [place], [place] [address]Dr. Antonella Medrano Calcium [Mass/Vol] 8.6 mg/dL Normal 8.5-10.1 [facility] Comment on above: Performed By: #### C MP ####[facility] Luqvvqqzmt4726[address] [place], [place] [address]Dr. Antonella Medrano Chloride [Moles/Vol] 104 mmol/L Normal 98-107 [facility] Comment on above: Performed By: #### C MP ####[facility] Gwfjumtzpz0079 [place] [address]Dr. Antonella Medrano CO2 [Moles/Vol] 26.0 mmol/L Normal 21.0-32.0 [facility] Comment on above: Performed By: #### C MP ####[facility] Sxohwwjasr9549 [place] [address]Dr. Antonella Medrano Creatinine [Mass/Vol] 0.62 mg/dL Normal 0.55-1.02 [facility] Comment on above: Performed By: #### C MP ####[facility] Durcriarap07[address] [place], [place] [address]Dr. Antonella Medrano EGFR-AF GUATEMALAN >60 Normal >=60 [facility] Comment on above: Performed By: #### C MP ####[facility] Ebbyuabquu022[address] [place], [place] [address]Dr. Antonella Medrano EGFR-NON AF GUATEMALAN >60 Normal >=60 [facility] Comment on above: Performed By: #### C MP ####[facility] Tgdavbczdk094[address] [place], [place] [address]Dr. Antonella Medrano Globulin (S) [Mass/Vol] 3.0 g/dL Normal [facility] Comment on above: Performed By: #### C MP ####[facility] Rnbturwjcg7979 [place] [address]Dr. Antonella Medrano Glucose [Mass/Vol] 223 mg/dL Critically high 74-[address] [facility] Comment on above: Performed By: #### C MP ####[facility] Bxnzplggyt7399 [place] [address]Dr. Antonella Medrano Potassium [Moles/Vol] 4.2 mmol/L Normal 3.5-5.1 [facility] Comment on above: Performed By: #### C MP ####[facility] Pnstkvwnop6497 [place] [address]Dr. Antonella Mitchell Protein [Mass/Vol] 5.4 g/dL Critically low 6.4-8.2 [facility] Comment on above: Performed By: #### C MP ####[facility] Uvswswmobb0936 [place] [address]Dr. Antonella Medrano Sodium [Moles/Vol] 137 mmol/L Normal 136-145 [facility] Comment on above: Performed By: #### C MP ####[facility] Upifltskwx[address] [place], [place] [address]Dr. Antonella Medrano Urea nitrogen [Mass/Vol] 20.0 mg/dL Critically high 7.0-18.0 [facility] Comment on above: Performed By: #### C MP ####[facility] Jxrkurznwi37[address] [place], [place] [address]Dr. Antonella Medrano Urea nitrogen/Creatinine [Mass ratio] 32.3 mg/mg Normal [facility] Comment on above: Performed By: #### C MP ####[facility] Gceccwpzot40[address] [place], [place] [address]Dr. Antonella Medrano CBC AUTO DIFFon 11-11-2022 BASO # 0.0 103/ul Normal 0.0-0.1 [facility] Comment on above: Performed By: #### C BC ####[facility] Vdrdmxrnhd01[address] [place], [place] [address]Dr. Antonella Medrano Basophils/100 WBC (Bld) 0.5 % Normal 0.2-2.0 [facility] Comment on above: Performed By: #### C BC ####[facility] Dkjtnhxkmx53[address] [place], [place] [address]Dr. Antonella Medrano EO # 0.3 103/ul Normal 0.0-0.7 [facility] Comment on above: Performed By: #### C BC ####[facility] Luenpbqmow8[address] [place], [place] [address]Dr. Antonella Mitchell Eosinophils/100 WBC (Bld) 3.4 % Normal 0.9-7.0 [facility] Comment on above: Performed By: #### C BC ####[facility] Tqqlbbaygz96[address] [place], [place] [address]Dr. Antonella Medrano Erythrocyte distribution width (RBC) [Ratio] 13.3 % Normal 11.0-15.0 [facility] Comment on above: Performed By: #### C BC ####[facility] [address]hkrmjt[address] [place] [address]Dr. Antonella Medrano Hematocrit (Bld) [Volume fraction] 38.2 % Normal 36.0-48.0 [facility] Comment on above: Performed By: #### C BC ####[facility] Zgkleroldf[address] [place], [place] [address]DrGerman Medrano Hemoglobin (Bld) [Mass/Vol] 12.5 g/dL Normal 12.0-16.0 [facility] Comment on above: Performed By: #### C BC ####[facility] Wmtruujmrm9[address] [place], [place] [address]DrGerman Medrano IG # 0.10 10e3/ul Critically high 0.00-0.03 [facility] Comment on above: Performed By: #### C BC ####[facility] Qjkrtmhamr05[address] [place], [place] [address]DrGerman Medrano IG % 1.2 % Critically high 0.0-0.5 [facility] Comment on above: Performed By: #### C BC ####[facility] Ijzjpoyrzm9[address] [place], [place] [address]DrGerman Medrano LYMPH # 1.9 103/ul Normal 1.2-3.8 [facility] Comment on above: Performed By: #### C BC ####[facility] Zkaxusysct6446[address] [place], [place] [address]DrGerman Medrano Lymphocytes/100 WBC (Bld) 23.1 % Normal 20.5-60.0 [facility] Comment on above: Performed By: #### C BC ####[facility] Qxnxvzqwzk22[address] [place], [place] [address]DrGerman Medrano MANUAL DIFF REQ NO Normal [facility] Comment on above: Performed By: #### C BC ####[facility] Ywocjvruxu59[address] [place], [place] [address]DrGerman Medrano MCH (RBC) [Entitic mass] 28.7 pg Normal 26.7-34.0 [facility] Comment on above: Performed By: #### C BC ####[facility] Jdscmrssec[address] [place] [address]Dr. Antonella Medrano MCHC (RBC) [Mass/Vol] 32.7 g/dL Normal 29.9-35.2 [facility] Comment on above: Performed By: #### C BC ####[facility] Joqlffdnac4133 [place] [address]Dr. Antonella Medrano MCV (RBC) [Entitic vol] 87.6 fL Normal 81.0-99.0 [facility] Comment on above: Performed By: #### C BC ####[facility] Rctafujzso8[address] [place], [place] [address]Dr. Antonella Medrano MONO # 0.8 103/ul Normal 0.3-0.8 [facility] Comment on above: Performed By: #### C BC ####[facility] Qyuhdplxkz739[address] [place], [place] [address]Dr. Antonella Medrano Monocytes/100 WBC (Bld) 9.8 % Normal 1.7-12.0 [facility] Comment on above: Performed By: #### C BC ####[facility] Lsplstjglj3422[address] [place], [place] [address]Dr. Antonella Medrano NEUT # 5.1 103/ul Normal 1.4-6.5 [facility] Comment on above: Performed By: #### C BC ####[facility] Rxsywyeyog3076[address] [place], [place] [address]Dr. Antonella Medrano Neutrophils/100 WBC (Bld) 62.0 % Normal 43.0-75.0 [facility] Comment on above: Performed By: #### C BC ####[facility] Pcqjfviqoq4824[address] [place], [place] [address]Dr. Antonella Medrano Platelet mean volume (Bld) [Entitic vol] 11.1 fL Normal 9.5-13.5 [facility] Comment on above: Performed By: #### C BC ####[facility] Engegfzwmp1936[address] [place], [place] [address]Dr. Antonella Medrano PLT 251 103/ul Normal 150-450 [facility] Comment on above: Performed By: #### C BC ####[facility] Dqfvmmivux3374 [place] [address]Dr. Antonella Medrano RBC 4.36 106/ul Normal 4.20-5.40 [facility] Comment on above: Performed By: #### C BC ####[facility] Lolfupijkx75[address] [place] [id number]. Antonella Medrano WBC 8.2 103/ul Normal 4.0-11.0 [facility] Comment on above: Performed By: #### C BC ####[facility] Wkfeldktkd4598 [place] [address]DrGerman Medrano POINT OF CARE GLUCOSEon 10-24 Glucose [Mass/Vol] 282 mg/dL Critically high 74-[address] [facility] Comment on above: Performed By: #### P OCGLUC ####[facility] Eqibiuzaxh7538 [place] [address]Dr. Antonella Medrano Glucose [Mass/Vol] 269 mg/dL Critically high 74-[address] [facility] Comment on above: Performed By: #### P OCGLUC ####[facility] Qmprwqsoix[address] [place], [place] [address]Dr. Antonella Medrano Glucose [Mass/Vol] 255 mg/dL Critically high 74-[address] [facility] Comment on above: Performed By: #### P OCGLUC ####[facility] Gzuuxkjlou4634 [place] [address]DrGerman Medrano PROF 14(COMP METB)on 023 Albumin [Mass/Vol] 2.2 g/dL Critically low 3.4-5.0 [facility] Comment on above: Performed By: #### C MP ####[facility] Xhqyybarnh38[address] [place] [address]Dr. Antonella Medrano Albumin/Globulin [Mass ratio] 0.7 {ratio} Normal [facility] Comment on above: Performed By: #### C MP ####[facility] Grvrflbqtp3562 [place] [address]Dr. Antonella Medrano ALP [Catalytic activity/Vol] 129 U/L Critically high 46-116 [facility] Comment on above: Performed By: #### C MP ####[facility] Cctgvkyfcg3967 [place] [address]Dr. Antonella Medrano ALT [Catalytic activity/Vol] 14 U/L Normal 14-59 [facility] Comment on above: Performed By: #### C MP ####[facility] Puncvmrukt2732 [place] [address]Dr. Antonella Mitchell Anion gap [Moles/Vol] 10.6 mmol/L Normal Th [facility] Comment on above: Performed By: #### C MP ####[facility] Zraakxyxui998[address] [place], [place] [address]Dr. Antonella Mitchell AST [Catalytic activity/Vol] 11 U/L Critically low 15-37 [facility] Comment on above: Performed By: #### C MP ####[facility] Qpcgnztpuf028[address] [place], [place] [address]Dr. Antonella Mitchell Bilirubin [Mass/Vol] 0.3 mg/dL Normal 0.2-1.0 [facility] Comment on above: Performed By: #### C MP ####[facility] Ubnkpaaieu8[address] [place], [place] [address]Dr. Antonella Mitchell Calcium [Mass/Vol] 8.4 mg/dL Critically low 8.5-10.1 [facility] Comment on above: Performed By: #### C MP ####[facility] Dctuoelatm71[address] [place], [place] [address]Dr. Antonella Mitchell Chloride [Moles/Vol] 105 mmol/L Normal 98-107 [facility] Comment on above: Performed By: #### C MP ####[facility] Djuxxqngvb97[address] [place], [place] [address]Dr. Mariafilemon Medrano CO2 [Moles/Vol] 25.1 mmol/L Normal 21.0-32.0 [facility] Comment on above: Performed By: #### C MP ####[facility] Zzrbnoyazt65[address] [place], [place] [address]Dr. Antonella Mitchell Creatinine [Mass/Vol] 0.70 mg/dL Normal 0.55-1.02 [facility] Comment on above: Performed By: #### C MP ####[facility] Urkpssleeg5328 [place] [address]Dr. Antonella Mitchell EGFR-AF GUATEMALAN >60 Normal >=60 [facility] Comment on above: Performed By: #### C MP ####[facility] Ufmmwhyyko75[address] [place] [id number]. Antonella Mitchell EGFR-NON AF GUATEMALAN >60 Normal >=60 [facility] Comment on above: Performed By: #### C MP ####[facility] Qbhgwinffs7997 [place] [address]Dr. Antonella Mitchell Globulin (S) [Mass/Vol] 3.1 g/dL Normal [facility] Comment on above: Performed By: #### C MP ####[facility] Euvvfhwjgu3408 [place] [address]Dr. Antonella Mitchell Glucose [Mass/Vol] 275 mg/dL Critically high 74-[address] [facility] Comment on above: Performed By: #### C MP ####[facility] Pmyqfduqxk8788 [place] [address]Dr. Antonella Mitchell Potassium [Moles/Vol] 4.7 mmol/L Normal 3.5-5.1 [facility] Comment on above: Performed By: #### C MP ####[facility] Ikbixjjbra0072 [place] [address]Dr. Antonella Mitchell Protein [Mass/Vol] 5.3 g/dL Critically low 6.4-8.2 Th [facility] Comment on above: Performed By: #### C MP ####[facility] Hgecnyvnuo4208 [place] [address]Dr. Antonella Mitchell Sodium [Moles/Vol] 136 mmol/L Normal 136-145 [facility] Comment on above: Performed By: #### C MP ####[facility] Tgnczzozlh0439 [place] [address]Dr. Mariafilemon Mitchell Urea nitrogen [Mass/Vol] 27.0 mg/dL Critically high 7.0-18.0 [facility] Comment on above: Performed By: #### C MP ####[facility] Onysvzcjon0178 [place] [address]Dr. Antonella Medrano Urea nitrogen/Creatinine [Mass ratio] 38.6 mg/mg Normal [facility] Comment on above: Performed By: #### C MP ####[facility] Hbnamdfqqi2298 [place] [address]Dr. Antonella Mitchell CBC AUTO DIFFon 11-10-2022 BASO # 0.1 103/ul Normal 0.0-0.1 [facility] Comment on above: Performed By: #### C BC ####[facility] Cliosryrjs[address] [place], [place] [address]Dr. Mariafilemon Medrano Basophils/100 WBC (Bld) 0.6 % Normal 0.2-2.0 [facility] Comment on above: Performed By: #### C BC ####[facility] Ozukmhgjah[address] [place], [place] [address]Dr. Antonella Mitchell EO # 0.3 103/ul Normal 0.0-0.7 [facility] Comment on above: Performed By: #### C BC ####[facility] Ggqhrjscqo[address] [place], [place] [address]Dr. Antonella Mitchell Eosinophils/100 WBC (Bld) 3.4 % Normal 0.9-7.0 [facility] Comment on above: Performed By: #### C BC ####[facility] Ckemxajizy65[address] [place], [place] [address]Dr. Antonella Medrano Erythrocyte distribution width (RBC) [Ratio] 13.3 % Normal 11.0-15.0 [facility] Comment on above: Performed By: #### C BC ####[facility] Dfviidmgkx43[address] [place], [place] [address]Dr. Antonella Medrano Hematocrit (Bld) [Volume fraction] 39.8 % Normal 36.0-48.0 [facility] Comment on above: Performed By: #### C BC ####[facility] Tceaepdmyv2[address] [place], [place] [address]Dr. Antonella Medrano Hemoglobin (Bld) [Mass/Vol] 13.2 g/dL Normal 12.0-16.0 [facility] Comment on above: Performed By: #### C BC ####[facility] Cpdjsyjuec2811 [place] [address]Dr. Antonella Medrano IG # 0.11 10e3/ul Critically high 0.00-0.03 [facility] Comment on above: Performed By: #### C BC ####[facility] Pfepkeadle9270 [place] [address]Dr. Antonella Medrano IG % 1.3 % Critically high 0.0-0.5 [facility] Comment on above: Performed By: #### C BC ####[facility] Bbwlewbnoy9409 [place] [address]DrGerman Medrano LYMPH # 1.8 103/ul Normal 1.2-3.8 [facility] Comment on above: Performed By: #### C BC ####[facility] Lkusbbahzk3933 [place] [address]DrGerman Medrano Lymphocytes/100 WBC (Bld) 22.0 % Normal 20.5-60.0 [facility] Comment on above: Performed By: #### C BC ####[facility] Dtqdgeapwo0224 [place] [address]DrGerman Medrano MANUAL DIFF REQ NO Normal [facility] Comment on above: Performed By: #### C BC ####[facility] Usfzukvypy0964 [place] [address]DrGerman Medrano MCH (RBC) [Entitic mass] 29.3 pg Normal 26.7-34.0 [facility] Comment on above: Performed By: #### C BC ####[facility] Yzidwskvzz1087 [place] [id number] Medrano MCHC (RBC) [Mass/Vol] 33.2 g/dL Normal 29.9-35.2 [facility] Comment on above: Performed By: #### C BC ####[facility] Arakbftjnc2394 [place] [id number] Medrano MCV (RBC) [Entitic vol] 88.2 fL Normal 81.0-99.0 [facility] Comment on above: Performed By: #### C BC ####[facility] Qroyehnukc8706 [place] [address]Dr. Antonella Medrano MONO # 0.9 103/ul Critically high 0.3-0.8 [facility] Comment on above: Performed By: #### C BC ####[facility] Taoyiqwomo8985 [place] [address]Dr. Antonella Medrano Monocytes/100 WBC (Bld) 11.0 % Normal 1.7-12.0 [facility] Comment on above: Performed By: #### C BC ####[facility] Wjxymjtftw09[address] [place], [place] [address]Dr. Antonella Medrano NEUT # 5.0 103/ul Normal 1.4-6.5 [facility] Comment on above: Performed By: #### C BC ####[facility] Grrsltlgdg9[address] [place], [place] [address]Dr. Antonella Medrano Neutrophils/100 WBC (Bld) 61.7 % Normal 43.0-75.0 [facility] Comment on above: Performed By: #### C BC ####[facility] Pcexdvofom64[address] [place], [place] [address]Dr. Antonella Medrano Platelet mean volume (Bld) [Entitic vol] 11.0 fL Normal 9.5-13.5 [facility] Comment on above: Performed By: #### C BC ####[facility] Wwtfpzsafq[address] [place], [place] [address]Dr. Antonella Medrano PLT 237 103/ul Normal 150-450 [facility] Comment on above: Performed By: #### C BC ####[facility] Dmqxeeqpct102[address] [place], [place] [id number]. Antonella Medrano RBC 4.51 106/ul Normal 4.20-5.40 [facility] Comment on above: Performed By: #### C BC ####[facility] [address]ythpdbuow[address] [place], [place] [id number]. Antonella Medrano WBC 8.2 103/ul Normal 4.0-11.0 [facility] Comment on above: Performed By: #### C BC ####[facility] Bcubnbumww5154 [place] [address]Dr. Antonella Mitchell POINT OF CARE GLUCOSEon 10-24 Glucose [Mass/Vol] 255 mg/dL Critically high 74-[address] [facility] Comment on above: Performed By: #### P OCGLUC ####[facility] Nftkruuhdd7570 [place] [address]Dr. Mariafilemon Mitchell Glucose [Mass/Vol] 268 mg/dL Critically high 74-[address] [facility] Comment on above: Performed By: #### P OCGLUC ####[facility] Skhxdnysus2148 [place] [address]Dr. Antonella Medrano Glucose [Mass/Vol] 355 mg/dL Critically high 74-[address] [facility] Comment on above: Performed By: #### P OCGLUC ####[facility] Iermubmzby[address] [place], [place] [address]Dr. Antonella Mitchell Glucose [Mass/Vol] 318 mg/dL Critically high 74-[address] [facility] Comment on above: Performed By: #### P OCGLUC ####[facility] Mjxxxcnhou436[address] [place], [place] [address]Dr. Antonella Medrano PROF 14(COMP METB)on 023 Albumin [Mass/Vol] 2.3 g/dL Critically low 3.4-5.0 Th [facility] Comment on above: Performed By: #### C MP ####[facility] Gnzklpvzxf4973 [place] [address]Dr. Antonella Medrano Albumin/Globulin [Mass ratio] 0.9 {ratio} Normal [facility] Comment on above: Performed By: #### C MP ####[facility] Mvdatwhppp2[address] [place], [place] [address]Dr. Antonella Medrano ALP [Catalytic activity/Vol] 153 U/L Critically high 46-116 [facility] Comment on above: Performed By: #### C MP ####[facility] Ptpytayefq965[address] [place], [place] [address]Dr. Antonella Medrano ALT [Catalytic activity/Vol] 15 U/L Normal 14-59 [facility] Comment on above: Performed By: #### C MP ####[facility] Gaoqbmvdoz9701 [place] [address]Dr. Antonella Medrano Anion gap [Moles/Vol] 12.7 mmol/L Normal Th [facility] Comment on above: Performed By: #### C MP ####[facility] Veceoiddrz6730 [place] [address]Dr. Antonella Mitchell AST [Catalytic activity/Vol] 14 U/L Critically low 15-37 [facility] Comment on above: Performed By: #### C MP ####[facility] Isittlsphy1662 [place] [address]Dr. Mariafilemon Mitchell Bilirubin [Mass/Vol] 0.3 mg/dL Normal 0.2-1.0 [facility] Comment on above: Performed By: #### C MP ####[facility] Qgtjpqrfhx[address] [place], [place] [address]Dr. Antonella Medrano Calcium [Mass/Vol] 8.3 mg/dL Critically low 8.5-10.1 [facility] Comment on above: Performed By: #### C MP ####[facility] Efoakhtraa01[address] [place], [place] [address]Dr. Antonella Medrano Chloride [Moles/Vol] 104 mmol/L Normal 98-107 [facility] Comment on above: Performed By: #### C MP ####[facility] [address]zwkzxioc17[address] [place], [place] [address]Dr. Mariafilemon Mitchell CO2 [Moles/Vol] 23.8 mmol/L Normal 21.0-32.0 [facility] Comment on above: Performed By: #### C MP ####[facility] Qsawcawfvn9[address] [place], [place] [address]Dr. Mariafilemon Mitchell Creatinine [Mass/Vol] 0.73 mg/dL Normal 0.55-1.02 [facility] Comment on above: Performed By: #### C MP ####[facility] [address]tsykjmypx[address] [place], [place] [id number]. Antonella Medrano EGFR-AF GUATEMALAN >60 Normal >=60 [facility] Comment on above: Performed By: #### C MP ####[facility] Pkmyoqrxdk8197 [place] [id number]. Antonella Medrano EGFR-NON AF GUATEMALAN >60 Normal >=60 [facility] Comment on above: Performed By: #### C MP ####[facility] Dnuvaaexhz5608 [place] [id number]. Antonella Medrano Globulin (S) [Mass/Vol] 2.6 g/dL Normal [facility] Comment on above: Performed By: #### C MP ####[facility] Qfgxmztayy3484 [place] [id number]. Antonella Medrano Glucose [Mass/Vol] 320 mg/dL Critically high 74-106 T [facility] Comment on above: Performed By: #### C MP ####[facility] Vservzawqg1447 [place] [address]Dr. Antonella Medrano Potassium [Moles/Vol] 4.5 mmol/L Normal 3.5-5.1 [facility] Comment on above: Performed By: #### C MP ####[facility] Tjylowznum[address] [place], [place] [address]Dr. Antonella Medrano Protein [Mass/Vol] 4.9 g/dL Critically low 6.4-8.2 Th [facility] Comment on above: Performed By: #### C MP ####[facility] Cucomxrsow08[address] [place], [place] [address]Dr. Antonella Medrano Sodium [Moles/Vol] 136 mmol/L Normal 136-145 [facility] Comment on above: Performed By: #### C MP ####[facility] Whisesgerv2266 [place] [address]Dr. Antonella Medrano Urea nitrogen [Mass/Vol] 27.0 mg/dL Critically high 7.0-18.0 [facility] Comment on above: Performed By: #### C MP ####[facility] Uavgqeqaua1831 [place] [address]Dr. Mariafilemon Mitchell Urea nitrogen/Creatinine [Mass ratio] 37.0 mg/mg Normal [facility] Comment on above: Performed By: #### C MP ####[facility] Udsyfgmvjq7494 [place] [id number]. Antonella Medrano CBC AUTO DIFFon 11-09-2022 BASO # 0.0 103/ul Normal 0.0-0.1 [facility] Comment on above: Performed By: #### C BC ####[facility] Sjajquldna7102 [place] [id number]. Antonella Mitchell Basophils/100 WBC (Bld) 0.4 % Normal 0.2-2.0 [facility] Comment on above: Performed By: #### C BC ####[facility] Edoonyylig[address] [place], [place] [address]Dr. Antonella Mitchell EO # 0.3 103/ul Normal 0.0-0.7 [facility] Comment on above: Performed By: #### C BC ####[facility] Ukkdobxagx[address] [place], [place] [address]Dr. Mariafilemon Medrano Eosinophils/100 WBC (Bld) 3.6 % Normal 0.9-7.0 [facility] Comment on above: Performed By: #### C BC ####[facility] Jtsoeslxov4[address] [place], [place] [address]Dr. Antonella Medrano Erythrocyte distribution width (RBC) [Ratio] 13.1 % Normal 11.0-15.0 [facility] Comment on above: Performed By: #### C BC ####[facility] Nxtnfhcmci13[address] [place], [place] [address]Dr. Antonella Medrano Hematocrit (Bld) [Volume fraction] 41.7 % Normal 36.0-48.0 [facility] Comment on above: Performed By: #### C BC ####[facility] Zjecyacjzv[address] [place], [place] [address]Dr. Antonella Medrano Hemoglobin (Bld) [Mass/Vol] 13.8 g/dL Normal 12.0-16.0 [facility] Comment on above: Performed By: #### C BC ####[facility] Azyuoctafx8[address] [place], [place] [address]Dr. Antonella Medrano IG # 0.09 10e3/ul Critically high 0.00-0.03 [facility] Comment on above: Performed By: #### C BC ####[facility] Pssgqqknip6537 [place] [address]Dr. Antonella Mitchell IG % 1.1 % Critically high 0.0-0.5 [facility] Comment on above: Performed By: #### C BC ####[facility] Ylpmyenmbs7632 [place] [address]DrGerman Antonella Mitchell LYMPH # 1.8 103/ul Normal 1.2-3.8 [facility] Comment on above: Performed By: #### C BC ####[facility] Oceoqhamwd1898 [place] [address]DrGerman Mariafilemon Medrano Lymphocytes/100 WBC (Bld) 21.2 % Normal 20.5-60.0 [facility] Comment on above: Performed By: #### C BC ####[facility] Tqyhzdvtog57[address] [place], [place] [address]DrGerman Mariafilemon Medrano MANUAL DIFF REQ NO Normal [facility] Comment on above: Performed By: #### C BC ####[facility] [address]wolgegcu[address] [place], [place] [id number]. Antonella Mitchell MCH (RBC) [Entitic mass] 28.7 pg Normal 26.7-34.0 [facility] Comment on above: Performed By: #### C BC ####[facility] Diwksxqaoo4[address] [place], [place] [address]Dr. Antonella Mitchell MCHC (RBC) [Mass/Vol] 33.1 g/dL Normal 29.9-35.2 [facility] [facility] Comment on above: Performed By: #### C BC ####[facility] [address] [place], [place] [id number] Antonella Mitchell MCV (RBC) [Entitic vol] 86.7 fL Normal 81.0-99.0 [facility] Comment on above: Performed By: #### C BC ####[facility] Ocgjnvfzyo[address] [place] [id number] Medrano MONO # 0.9 103/ul Critically high 0.3-0.8 [facility] Comment on above: Performed By: #### C BC ####[facility] Eecjoyxzad0[address] [place] [id number]. Antonella Medrano Monocytes/100 WBC (Bld) 10.9 % Normal 1.7-12.0 [facility] Comment on above: Performed By: #### C BC ####[facility] Acxucaajfd6008 [place] [id number]. Antonella Medrano NEUT # 5.2 103/ul Normal 1.4-6.5 [facility] Comment on above: Performed By: #### C BC ####[facility] Dyqxdibicy9569 [place] [id number]. Antonella Medrano Neutrophils/100 WBC (Bld) 62.8 % Normal 43.0-75.0 [facility] Comment on above: Performed By: #### C BC ####[facility] Wdqdfoqvit4603 [place] [address]Dr. Antonella Medrano Platelet mean volume (Bld) [Entitic vol] 10.6 fL Normal 9.5-13.5 [facility] Comment on above: Performed By: #### C BC ####[facility] Zczimpvagi99[address] [place] [address]Dr. Antonella Medrano PLT 270 103/ul Normal 150-450 [facility] Comment on above: Performed By: #### C BC ####[facility] Pxmalmcxhc9608 [place] [id number]. Antonella Medrano RBC 4.81 106/ul Normal 4.20-5.40 [facility] Comment on above: Performed By: #### C BC ####[facility] Ldknrubnss7043 [place] [id number]. Antonella Medrano WBC 8.3 103/ul Normal 4.0-11.0 [facility] Comment on above: Performed By: #### C BC ####[facility] Srdauujdmn8730 [place] [id number]. Antonella Medrano POINT OF CARE GLUCOSEon - Glucose [Mass/Vol] 451 mg/dL Critically high 74-106 T [facility] Comment on above: Performed By: #### P OCGLUC ####[facility] Nvtmsnvezi7685 [place] [address]Dr. Antonella Medrano Glucose [Mass/Vol] 341 mg/dL Critically high 74-[address] [facility] Comment on above: Performed By: #### P OCGLUC ####[facility] Uvxaxmnkmd3413 [place] [id number]. Antonella Medrano Glucose [Mass/Vol] 440 mg/dL Critically high 74-[address] [facility] Comment on above: Performed By: #### P OCGLUC ####[facility] Hzouuygjhq22[address] [place] [address]Dr. Antonella Medrano Glucose [Mass/Vol] 295 mg/dL Critically high 74-[address] [facility] Comment on above: Performed By: #### P OCGLUC ####[facility] Oujuvevtxr5435 [place] [address]Dr. Antonella Medrano PROF 14(COMP METB)on 023 Albumin [Mass/Vol] 2.4 g/dL Critically low 3.4-5.0 [facility] Comment on above: Performed By: #### C MP ####[facility] Arrwfutwux6[address] [place] [address]Dr. Antonella Medrano Albumin/Globulin [Mass ratio] 0.8 {ratio} Normal [facility] Comment on above: Performed By: #### C MP ####[facility] Xcztlpfxht6938 [place] [address]Dr. Antonella Medrano ALP [Catalytic activity/Vol] 121 U/L Critically high 46-116 [facility] Comment on above: Performed By: #### C MP ####[facility] Ohtkxtumot7222 [place] [address]Dr. Antonella Medrano ALT [Catalytic activity/Vol] 17 U/L Normal 14-59 [facility] Comment on above: Performed By: #### C MP ####[facility] Arfkplmitk8130 [place] [id number]. Antonella Medrano Anion gap [Moles/Vol] 11.7 mmol/L Normal Th [facility] Comment on above: Performed By: #### C MP ####[facility] Cqycgvpkec8439 [place] [address]Dr. Antonella Medrano AST [Catalytic activity/Vol] 15 U/L Normal 15-37 [facility] Comment on above: Performed By: #### C MP ####[facility] Dqrsurmpti5112 [place] [id number]. Antonella Medrano Bilirubin [Mass/Vol] 0.4 mg/dL Normal 0.2-1.0 [facility] Comment on above: Performed By: #### C MP ####[facility] Xnknyixzyn8200 [place] [address]Dr. Antonella Medrano Calcium [Mass/Vol] 8.3 mg/dL Critically low 8.5-10.1 [facility] Comment on above: Performed By: #### C MP ####[facility] Lxzucmgsqb415[address] [place], [place] [address]Dr. Antonella Medrano Chloride [Moles/Vol] 102 mmol/L Normal 98-107 [facility] Comment on above: Performed By: #### C MP ####[facility] Ylnbcntdpw[address] [place], [place] [address]Dr. Antonella Medrano CO2 [Moles/Vol] 26.4 mmol/L Normal 21.0-32.0 [facility] Comment on above: Performed By: #### C MP ####[facility] Mgjmtphgdt4[address] [place], [place] [address]Dr. Antonella Medrano Creatinine [Mass/Vol] 0.92 mg/dL Normal 0.55-1.02 [facility] Comment on above: Performed By: #### C MP ####[facility] Mhaxjasaiu8564 [place] [id number]. Antonella Mitchell EGFR-AF GUATEMALAN >60 Normal >=60 [facility] Comment on above: Performed By: #### C MP ####[facility] Eanpxojfzh014[address] [place], [place] [address]Dr. Mariafilemon Mitchell EGFR-NON AF GUATEMALAN >60 Normal >=60 [facility] Comment on above: Performed By: #### C MP ####[facility] Syumicpwhz5002 [place] [address]Dr. Antonella Medrano Globulin (S) [Mass/Vol] 3.0 g/dL Normal [facility] Comment on above: Performed By: #### C MP ####[facility] Vuovmcgchm0617 [place] [address]Dr. Antonella Medrano Glucose [Mass/Vol] 285 mg/dL Critically high 74-106 T [facility] Comment on above: Performed By: #### C MP ####[facility] Rdwyzteitq7472 [place] [address]Dr. Antonella Medrano Potassium [Moles/Vol] 4.1 mmol/L Normal 3.5-5.1 [facility] Comment on above: Performed By: #### C MP ####[facility] Xeqeqinfpy13[address] [place], [place] [address]Dr. Antonella Medrano Protein [Mass/Vol] 5.4 g/dL Critically low 6.4-8.2 [facility] Comment on above: Performed By: #### C MP ####[facility] Utblnuhlol55[address] [place], [place] [address]Dr. Antonella Medrano Sodium [Moles/Vol] 136 mmol/L Normal 136-145 [facility] Comment on above: Performed By: #### C MP ####[facility] Wpdmjyudbz622[address] [place], [place] [address]Dr. Antonella Medrano Urea nitrogen [Mass/Vol] 14.0 mg/dL Normal 7.0-18.0 [facility] Comment on above: Performed By: #### C MP ####[facility] Lpbmbjxicd1894[address] [place], [place] [address]Dr. Antonella Medrano Urea nitrogen/Creatinine [Mass ratio] 15.2 mg/mg Normal [facility] Comment on above: Performed By: #### C MP ####[facility] Jnvlqepxta1304[address] [place], [place] [address]Dr. Antonella Mitchell BLOOD GASES BTYon 11-08-2022 02 MODE ROOM AIR Normal [facility] Comment on above: Performed By: #### A BG ####[facility] Dyfgabwfgu4563 [place] [address]Dr. Antonella Medrano ALLENS TEST Positive Normal [facility] Comment on above: Performed By: #### A BG ####[facility] Uorsiwqegs7429 [place] [address]Dr. Antonella Medrano Base excess Calc (Bld) [Moles/Vol] 1.5 mmol/L Normal -2.0-2.0 [facility] Comment on above: Performed By: #### A BG ####[facility] Qtrwdiexni2345[address] [place], [place] [address]Dr. Antonella Medrano BIPAP PRESSURE Normal [facility] Comment on above: Performed By: #### A BG ####[facility] Lhmrzwuvrj04[address] [place], [place] [address]Dr. Antonella Medrano CPAP Normal [facility] Comment on above: Performed By: #### A BG ####[facility] Lnltpjtdnt9[address] [place], [place] [address]Dr. Antonella Medrano FIO2 Normal [facility] Comment on above: Performed By: #### A BG ####[facility] Qvpcanaram1357[address] [place], [place] [address]Dr. Antonella Medrano HCO3 (Bld) [Moles/Vol] 26.1 mmol/L Critically high 22.0-26 .0 [facility] Comment on above: Performed By: #### A BG ####[facility] Jbhwxpulxf12[address] [place], [place] [address]Dr. Antonella Medrano LPM Normal [facility] Comment on above: Performed By: #### A BG ####[facility] Mxqdbuowik186[address] [place], [place] [address]Dr. Antonella Medrano MINUTE VOLUME Normal [facility] Comment on above: Performed By: #### A BG ####[facility] Vycwkkgzac75[address] [place], [place] [address]Dr. Antonella Medrano Oxygen (Bld) [Partial pressure] 78.1 mm[Hg] Critically low 80.0-100.0 [facility] Comment on above: Performed By: #### A BG ####[facility] Twldyibwyz9[address] [place] [address]Dr. Antonella Medrano Oxygen saturation in Blood 97.0 % Normal 95.0-100.0 [facility] Comment on above: Performed By: #### A BG ####[facility] Jcrqzebkpa7129 [place] [address]Dr. Antonella Medrano PCO2 41.0 mmHg Normal 35.0-45.0 [facility] Comment on above: Performed By: #### A BG ####[facility] Jtqjchurlb[address] [place], [place] [address]Dr. Antonella Medrano PEEP [facility] Comment on above: Performed By: #### A BG ####[facility] Wzkcolihua474[address] [place], [place] [address]Dr. Antonella Medrano pH (Bld) 7.412 [pH] Normal 7.350-7.450 [facility] Comment on above: Performed By: #### A BG ####[facility] Hnpogoquzh4[address] [place], [place] [address]Dr. Antonella Medrano PIP [facility] Comment on above: Performed By: #### A BG ####[facility] Xhttjiuqtw24[address] [place], [place] [address]Dr. Antonella Medrano PS [facility] Comment on above: Performed By: #### A BG ####[facility] Owkzweunnp3036[address] [place], [place] [address]Dr. Antonella Medrano PUNCTURE SITE RR [facility] Comment on above: Performed By: #### A BG ####[facility] Zsqndesogc66[address] [place], [place] [address]Dr. Antonella Medrano RATE [facility] Comment on above: Performed By: #### A BG ####[facility] Mppibalqmy813[address] [place], [place] [address]Dr. Antonella Medrano VENT MODE [facility] Comment on above: Performed By: #### A BG ####[facility] Iaieayaptz246[address] [place], [place] [address]Dr. Antonella Medrano VT [facility] Comment on above: Performed By: #### A BG ####[facility] Akapxfmmjh4275 [place] [id number]. Antonella Mitchell CBC AUTO DIFFon 11-08-2022 BASO # 0.1 103/ul Normal 0.0-0.1 [facility] Comment on above: Performed By: #### C BC ####[facility] Vjvkpxmuts9098 [place] [address]Dr. Antonella Medrano Basophils/100 WBC (Bld) 0.7 % Normal 0.2-2.0 [facility] Comment on above: Performed By: #### C BC ####[facility] Nohfstmcuo04[address] [place], [place] [address]Dr. Antonella Medrano EO # 0.3 103/ul Normal 0.0-0.7 [facility] Comment on above: Performed By: #### C BC ####[facility] Ikmkyerdqt338[address] [place], [place] [address]Dr. Antonella Medrano Eosinophils/100 WBC (Bld) 4.5 % Normal 0.9-7.0 [facility] Comment on above: Performed By: #### C BC ####[facility] Pzbqyiemmf24[address] [place], [place] [address]Dr. Antonella Medrano Erythrocyte distribution width (RBC) [Ratio] 13.2 % Normal 11.0-15.0 [facility] Comment on above: Performed By: #### C BC ####[facility] Diyneepmuw375[address] [place], [place] [address]Dr. Antonella Medrano Hematocrit (Bld) [Volume fraction] 46.0 % Normal 36.0-48.0 [facility] Comment on above: Performed By: #### C BC ####[facility] Bxnjlnokxk2165[address] [place], [place] [address]Dr. Antonella Medrano Hemoglobin (Bld) [Mass/Vol] 15.5 g/dL Normal 12.0-16.0 [facility] Comment on above: Performed By: #### C BC ####[facility] Djtjtwbjby11[address] [place], [place] [address]Dr. Antonella Medrano IG # 0.09 10e3/ul Critically high 0.00-0.03 [facility] Comment on above: Performed By: #### C BC ####[facility] Lzjvtowxjs1054 [place] [address]Dr. Antonella Medrano IG % 1.2 % Critically high 0.0-0.5 [facility] Comment on above: Performed By: #### C BC ####[facility] Eurwrcalow7001 [place] [address]Dr. Antonella Medrano LYMPH # 1.9 103/ul Normal 1.2-3.8 [facility] Comment on above: Performed By: #### C BC ####[facility] Fmgcwxajtv93[address] [place], [place] [address]Dr. Antonella Medrano Lymphocytes/100 WBC (Bld) 25.9 % Normal 20.5-60.0 [facility] Comment on above: Performed By: #### C BC ####[facility] Dqyqhczznf68[address] [place], [place] [address]Dr. Mariafilemon Medrano MANUAL DIFF REQ NO Normal [facility] Comment on above: Performed By: #### C BC ####[facility] Qjluyvbprb64[address] [place], [place] [address]Dr. Antonella Medrano MCH (RBC) [Entitic mass] 28.7 pg Normal 26.7-34.0 [facility] Comment on above: Performed By: #### C BC ####[facility] Kvqnkedgjq2915[address] [place], [place] [address]Dr. Antonella Medrano MCHC (RBC) [Mass/Vol] 33.7 g/dL Normal 29.9-35.2 [facility] Comment on above: Performed By: #### C BC ####[facility] Niiprwlvsk7[address] [place], [place] [address]Dr. Antonella Medrano MCV (RBC) [Entitic vol] 85.2 fL Normal 81.0-99.0 [facility] Comment on above: Performed By: #### C BC ####[facility] Afzozzkvmt9[address] [place], [place] [address]Dr. Antonella Mitchell MONO # 0.7 103/ul Normal 0.3-0.8 [facility] Comment on above: Performed By: #### C BC ####[facility] Morqhamopd7979 [place] [id number]. Antonella Medrano Monocytes/100 WBC (Bld) 9.4 % Normal 1.7-12.0 [facility] Comment on above: Performed By: #### C BC ####[facility] Hrvbfqnukx9478 [place] [id number]. Antonella Medrano NEUT # 4.3 103/ul Normal 1.4-6.5 [facility] Comment on above: Performed By: #### C BC ####[facility] Emboklzexr9084 [place] [id number]. Antonella Medrano Neutrophils/100 WBC (Bld) 58.3 % Normal 43.0-75.0 [facility] Comment on above: Performed By: #### C BC ####[facility] Sbppsmgiga0745 [place] [id number]. Antonella Medrano Platelet mean volume (Bld) [Entitic vol] 10.4 fL Normal 9.5-13.5 [facility] Comment on above: Performed By: #### C BC ####[facility] Yjssdgkrjc4931 [place] [id number]. Antonella Medrano PLT 301 103/ul Normal 150-450 [facility] Comment on above: Performed By: #### C BC ####[facility] Ydmwuiejlg9739 [place] [id number]. Antonella Medrano RBC 5.40 106/ul Normal 4.20-5.40 [facility] Comment on above: Performed By: #### C BC ####[facility] Njwcgpomsu2013 [place] [id number]. Antonella Medrano WBC 7.3 103/ul Normal 4.0-11.0 [facility] Comment on above: Performed By: #### C BC ####[facility] Lufeytvkue1705 [place] [id number]. Antonella Medrano CT CSPINE WO CONon CT CSPINE WO CON Normal [facility] CT HEAD WO CONon 11-08-2022 CT HEAD WO CON Normal [facility] CULTURE URINEon 11-08-2022 CULTURE URINE Culture Observations : HEAVY GROWTH OF MIXED GENITAL LUCY. NO POTENTIAL PATHOGENS SEEN. Normal [facility] Comment on above: Performed By: #### U RCX ####[facility] Jbnpakpkqb1593 [place] [address]Dr. Antonella Medrano Covid-19 [facility] ([facility]on 10-24 SARS-CoV-2 (COVID-19) RNA TAISHA+probe Ql (Unsp spec) Not detected Normal NOT DETECTED [facility] Comment on above: Result Comment: When [...] for this test is supported by the [employer] and Human Service's declaration that [...] be used). Performed By: #### C VDTBH ####[facility] Xkrxhjwctg69[address] [place], [place] [address]Dr. Antonella Medrano ER URINE PROFILEon 3 Bilirubin Ql (U) Negative Normal NEGATIVE [facility] Comment on above: Performed By: #### U MICRO, ERUR ####[facility] Qclwxhbczd9184[address] [place], [place] [address]Dr. Antonella Medrano Clarity (U) CLEAR Normal CLEAR [facility] Comment on above: Performed By: #### U MICRO, ERUR ####[facility] Ppbikpxqxx4678[address] [place], [place] [address]Dr. Antonella Medrano Color (U) LT. YELLOW Normal YELLOW [facility] Comment on above: Performed By: #### U MICRO, ERUR ####[facility] Ucqpqhlooe9082 [place] [address]Dr. Antonella LABOY A micrscopic examina tion will be performed if indicated. Normal [facility] Comment on above: Performed By: #### U MICRO, ERUR ####[facility] Altmpitdpw4964 [place] [address]Dr. Antonella Medrano Glucose Ql (U) >1000 Abnormal NEGATIVE [facility] Comment on above: Performed By: #### U MICRO, ERUR ####[facility] Iwhhouivfe16[address] [place], [place] [address]Dr. Antonella Medrano Hemoglobin Ql (U) SMALL Abnormal NEGATIVE [facility] Comment on above: Performed By: #### U MICRO, ERUR ####[facility] Mxscdtvljp499[address] [place], [place] [address]Dr. Antonella Medrano Ketones Ql (U) Negative Normal NEGATIVE [facility] Comment on above: Performed By: #### U MICRO, ERUR ####[facility] Bxbilndlml9[address] [place], [place] [address]Dr. Antonella Medrano LEUKOCYTES TRACE Abnormal NEGATIVE [facility] Comment on above: Performed By: #### U MICRO, ERUR ####[facility] Ijzvoczhzc722[address] [place], [place] [address]Dr. Antonella Medrano Nitrite Ql (U) Negative Normal NEGATIVE [facility] Comment on above: Performed By: #### U MICRO, ERUR ####[facility] Bmabalhbbm7[address] [place], [place] [address]Dr. Antonella Medrano pH (U) 5.5 [pH] Normal 5-9 [facility] Comment on above: Performed By: #### U MICRO, ERUR ####[facility] Alzvybdhli18[address] [place], [place] [address]Dr. Antonella Medrano Protein (U) [Mass/Vol] 100 mg/dL Abnormal NEGAT LAZ/ TRACE [facility] Comment on above: Performed By: #### U MICRO, ERUR ####[facility] Mbydgavjip6960[address] [place], [place] [address]Dr. Antonella Medrano SPEC GRAVITY 1.010 Normal 1.005-<=1.0 [facility] Comment on above: Performed By: #### U MICRO, ERUR ####[facility] Hrhmtimcuv68[address] [place], [place] [address]Dr. Antonella Medrano UR MICRO IND INDICATED Normal [facility] Comment on above: Performed By: #### U MICRO, ERUR ####[facility] Awxduihotq246[address] [place], [place] [address]Dr. Antonella Medrano Urobilinogen Qn (U) 0.2 {Oleg'U}/dL Normal 0.2 - 1. 0 [facility] Comment on above: Performed By: #### U MICRO, ERUR ####[facility] Jydweyuvca028[address] [place], [place] [address]Dr. Antonella Medrano POINT OF CARE GLUCOSEon 10-24 Glucose [Mass/Vol] 290 mg/dL Critically high 74-[address] [facility] Comment on above: Performed By: #### P OCGLUC ####[facility] Jeqrjyrlnv25[address] [place], [place] [address]Dr. Antonella Medrano PROF 14(COMP METB)on 023 Albumin [Mass/Vol] 3.2 g/dL Critically low 3.4-5.0 [facility] Comment on above: Performed By: #### H NAI, CMP ####[facility] Irizpwosjb8[address] [place], [place] [address]Dr. Antonella Medrano Albumin/Globulin [Mass ratio] 0.8 {ratio} Normal [facility] Comment on above: Performed By: #### H NAI, CMP ####[facility] Ivtokdyghx9186[address] [place], [place] [address]Dr. Antonella Medrano ALP [Catalytic activity/Vol] 186 U/L Critically high 46-116 [facility] Comment on above: Performed By: #### H NAI, CMP ####[facility] Vaaxjvdnuk7[address] [place] [address]Dr. Antonella Medrano ALT [Catalytic activity/Vol] 23 U/L Normal 14-59 [facility] Comment on above: Performed By: #### H ADAIRJAVED, CMP ####[facility] Zyxjipislg2128 [place] [id number]. Antonella Medrano Anion gap [Moles/Vol] 11.3 mmol/L Normal [facility] Comment on above: Performed By: #### H STROPN, CMP ####[facility] Gaoqzzpaji38[address] [place] [address]Dr. Antonella Medrano AST [Catalytic activity/Vol] 21 U/L Normal 15-37 [facility] Comment on above: Performed By: #### H NAI, CMP ####[facility] Epxbjtaatk6655 [place] [address]Dr. Antonella Medrano Bilirubin [Mass/Vol] 0.3 mg/dL Normal 0.2-1.0 [facility] Comment on above: Performed By: #### H NAI, CMP ####[facility] Vxwjrfypzb4[address] [place], [place] [address]Dr. Antonella Medrano Calcium [Mass/Vol] 9.6 mg/dL Normal 8.5-10.1 [facility] Comment on above: Performed By: #### H NAI, CMP ####[facility] Kswaurblcu380[address] [place], [place] [address]Dr. Antonella Medrano Chloride [Moles/Vol] 98 mmol/L Normal 98-107 [facility] Comment on above: Performed By: #### H NAI, CMP ####[facility] Iooyjhupjn1139[address] [place], [place] [address]Dr. Antonella Medrano CO2 [Moles/Vol] 30.0 mmol/L Normal 21.0-32.0 [facility] Comment on above: Performed By: #### H STROJAVED, CMP ####[facility] Gycmfsmrhs13[address] [place] [address]Dr. Antonella Medrano Creatinine [Mass/Vol] 0.75 mg/dL Normal 0.55-1.02 [facility] Comment on above: Performed By: #### H STROPN, CMP ####[facility] Wygpwajuvd3[address] [place] [address]Dr. Antonella Medrano EGFR-AF GUATEMALAN >60 Normal >=60 [facility] Comment on above: Performed By: #### H STROPN, CMP ####[facility] Nhbgikcvpw5554 [place] [address]Dr. Antonella Medrano EGFR-NON AF GUATEMALAN >60 Normal >=60 [facility] Comment on above: Performed By: #### H STROPN, CMP ####[facility] Zsconokxxq2824 [place] [address]Dr. Antonella Medrano Globulin (S) [Mass/Vol] 4.0 g/dL Normal [facility] Comment on above: Performed By: #### H STROPN, CMP ####[facility] Nwzqhtshwx9047 [place] [address]Dr. Antonella Medrano Glucose [Mass/Vol] 292 mg/dL Critically high 74-106 T [facility] Comment on above: Performed By: #### H STROPN, CMP ####[facility] [address]kjsezbjss[address] [place], [place] [address]Dr. Antonella Medrano Potassium [Moles/Vol] 4.3 mmol/L Normal 3.5-5.1 [facility] Comment on above: Performed By: #### H STROPN, CMP ####[facility] [address]okjgikux[address] [place], [place] [address]Dr. Antonella Medrano Protein [Mass/Vol] 7.2 g/dL Normal 6.4-8.2 [facility] Comment on above: Performed By: #### H STROPN, CMP ####[facility] Mhcptnsazy4[address] [place], [place] [address]Dr. Antonella Medrano Sodium [Moles/Vol] 135 mmol/L Critically low 136-145 Th [facility] Comment on above: Performed By: #### H STROPN, CMP ####[facility] Msbhqowawr34[address] [place], [place] [address]Dr. Antonella Medrano Urea nitrogen [Mass/Vol] 14.0 mg/dL Normal 7.0-18.0 [facility] Comment on above: Performed By: #### H STROPN, CMP ####[facility] Ftwwbvfipx[address] [place], [place] [address]Dr. Antonella Medrano Urea nitrogen/Creatinine [Mass ratio] 18.7 mg/mg Normal [facility] Comment on above: Performed By: #### H NAI, CMP ####[facility] Jsmaxohill[address] [place], [place] [address]Dr. Antonella Medrano TROPONIN, HIGH SENSITIVITYon 11-08-2022 HSTROP 69.8 pg/mL Critically high 4.0-51.3 [facility] Comment on above: Result Comment: CUT- OFF POINTS HAVE BEEN ESTABLISHED BASED ON THE FOURTH UNIVERSAL DEFINITIONS OF MYOCARDIALINFARCTION. THE UPPER REFERENCE LIMIT (URL) OF TROPONIN, DEFINED THE 99TH PERCENTILE OFcTnI DISTRIBUTION IN A REFERENCE POPULATION, HAS BEEN CONFIRMED THE DECISION THRESHOLDFOR ID DIAGNOSIS. Performed By: #### H NAI, CMP ####[facility] Bjlrlymvbi[address] [place], [place] [address]Dr. Antonella Medrano HSTROP 69.8 pg/mL Critically high 4.0-51.3 [facility] Comment on above: Result Comment: CUT- OFF POINTS HAVE BEEN ESTABLISHED BASED ON THE FOURTH UNIVERSAL DEFINITIONS OF MYOCARDIALINFARCTION. THE UPPER REFERENCE LIMIT (URL) OF TROPONIN, DEFINED THE 99TH PERCENTILE OFcTnI DISTRIBUTION IN A REFERENCE POPULATION, HAS BEEN CONFIRMED THE DECISION THRESHOLDFOR ID DIAGNOSIS. Performed By: #### H NAI ####[facility] [address]apv[address] [place], [place] [address]Dr. Antonella Medrano URINE MICROSCOPIC ONLYon BACTERIA TRACE Abnormal NONE SEEN [facility] Comment on above: Performed By: #### U MICRO, ERUR ####[facility] Inugueztmi[address] [place], [place] [address]Dr. Antonella Medrano Bacteria identified Cx Nom (U) INDICATED Normal [facility] Comment on above: Performed By: #### U MICRO, ERUR ####[facility] Jdqunsjmpw[address] [place], [place] [address]Dr. Antonella Medrano CAST NONE SEEN Normal NONE SEEN [facility] Comment on above: Performed By: #### U MICRO, ERUR ####[facility] Bjvhsarrga[address] [place], [place] [address]Dr. Antonella Medrano Crystals LM Nom (Urine sed) NONE SEEN Normal NONE SEEN [facility] Comment on above: Performed By: #### U MICRO, ERUR ####[facility] [address]wh[address] [place] [address]Dr. Antonella Mitchell Epithelial cells LM Ql (Urine sed) FEW Abnormal NONE SEEN /RARE [facility] Comment on above: Performed By: #### U MICRO, ERUR ####[facility] [address]fnzgxsto[address] [place] [address]Dr. Marialan Medrano MUCOUS NONE SEEN Normal NONE SEEN [facility] Comment on above: Performed By: #### U MICRO, ERUR ####[facility] [address]umcvk[address] [place] [address]Dr. Antonella Medrano RBC 2-5 Abnormal 0-2 [facility] Comment on above: Performed By: #### U MICRO, ERUR ####[facility] Lxmkcizvdj[address] [place] [address]Dr. Antonella Medrano WBC 10-20 Abnormal NONE SEEN [facility] Comment on above: Performed By: #### U MICRO, ERUR ####[facility] [address] [place] [address]Dr. Mariafilemon Medrano YEAST PRESENT Abnormal NONE SEEN [facility] Comment on above: Result Comment: 3+ b udding Performed By: #### U MICRO, ERUR ####[facility] [address]fpzcenac[address] [place] [address]Dr. Antonella Medrano XR CHEST 2 Von 11-08-2022 XR CHEST 2 V Normal [facility] XR KNEE RT 4V or >on 023 XR KNEE RT 4V or > Normal [facility] CT CSPINE WO CONon CT CSPINE WO CON Normal [facility] CT HEAD WO CONon 08-23-2022 CT HEAD WO CON Normal [facility] XR CHEST 1 Von 08-23-2022 XR CHEST 1 V Normal [facility] XR HIP LT 2 3V W PELVISon XR HIP LT 2 3V W PELVIS Normal [facility] CULTURE URINEon 08-02-2022 CULTURE URINE Normal [facility] Comment on above: Performed By: #### U RCX ####[facility] [address]wynikw[address] [place] [id number]. Antonella Medrano CBC AUTO DIFFon 07-31-2022 BASO # 0.0 103/ul Normal 0.0-0.1 [facility] Comment on above: Performed By: #### C BC ####[facility] [address]bz[address]xvzyfr[address] [place] [id number]. Mariafilemon Medrano Basophils/100 WBC (Bld) 0.4 % Normal 0.2-2.0 [facility] Comment on above: Performed By: #### C BC ####[facility] W[address]qvpcfhg[address] [place], [place] [address]Dr. Mariafilemon Medrano EO # 0.1 103/ul Normal 0.0-0.7 [facility] Comment on above: Performed By: #### C BC ####[facility] Wmyxfnyklz[address] [place], [place] [address]Dr. Mariafilemon Medrano Eosinophils/100 WBC (Bld) 1.3 % Normal 0.9-7.0 [facility] Comment on above: Performed By: #### C BC ####[facility] [address]fciwcwi[address] [place], [place] [address]Dr. Antonella Medrano Erythrocyte distribution width (RBC) [Ratio] 13.4 % Normal 11.0-15.0 [facility] Comment on above: Performed By: #### C BC ####[facility] Nqabwfyuvs[address] [place], [place] [address]Dr. Antonella Medrano Hematocrit (Bld) [Volume fraction] 43.4 % Normal 36.0-48.0 [facility] Comment on above: Performed By: #### C BC ####[facility] Wbqsyxlqyk19[address] [place], [place] [address]Dr. Antonella Medrano Hemoglobin (Bld) [Mass/Vol] 14.6 g/dL Normal 12.0-16.0 [facility] Comment on above: Performed By: #### C BC ####[facility] Mzyyowvxqs[address] [place], [place] [address]Dr. Antonella Medrano IG # 0.05 10e3/ul Critically high 0.00-0.03 [facility] Comment on above: Performed By: #### C BC ####[facility] K[address]feypwkux[address] [place] [address]Dr. Mariafilemon Medrano IG % 0.6 % Critically high 0.0-0.5 [facility] Comment on above: Performed By: #### C BC ####[facility] Axyktpxxmw1203 [place] [address]Dr. Mariafilemon Medrano LYMPH # 1.0 103/ul Critically low 1.2-3.8 [facility] Comment on above: Performed By: #### C BC ####[facility] Yzdzansdki[address] [place], [place] [address]Dr. Mariafilemon Medrano Lymphocytes/100 WBC (Bld) 13.4 % Critically low 20.5-60.0 [facility] Comment on above: Performed By: #### C BC ####[facility] Skroalnfse[address] [place], [place] [address]Dr. Antonella Medrano MANUAL DIFF REQ NO Normal [facility] Comment on above: Performed By: #### C BC ####[facility] Dhuhvyvhjo[address] [place], [place] [address]Dr. Antonella Mitchell MCH (RBC) [Entitic mass] 28.9 pg Normal 26.7-34.0 [facility] Comment on above: Performed By: #### C BC ####[facility] Njiqdirvgk[address] [place], [place] [address]Dr. Antonella Mitchell MCHC (RBC) [Mass/Vol] 33.6 g/dL Normal 29.9-35.2 [facility] Comment on above: Performed By: #### C BC ####[facility] Ijvrvumfih[address] [place], [place] [address]DrGerman Mariafilemon Medrano MCV (RBC) [Entitic vol] 85.9 fL Normal 81.0-99.0 [facility] Comment on above: Performed By: #### C BC ####[facility] Lnwtgkdvbt[address] [place], [place] [address]DrGerman Medrano MONO # 0.7 103/ul Normal 0.3-0.8 [facility] Comment on above: Performed By: #### C BC ####[facility] Vvbuiqutsy[address] [place] [id number]. Antonella Medrano Monocytes/100 WBC (Bld) 9.0 % Normal 1.7-12.0 [facility] Comment on above: Performed By: #### C BC ####[facility] Nhbgerklno[address] [place] [id number]. Antonella Medrano NEUT # 5.9 103/ul Normal 1.4-6.5 [facility] Comment on above: Performed By: #### C BC ####[facility] Aoptferdxj36[address] [place] [id number]. Antonella Medrano Neutrophils/100 WBC (Bld) 75.3 % Critically high 43.0-75.0 [facility] Comment on above: Performed By: #### C BC ####[facility] Jyrkjmdvop28[address] [place] [id number]. Antonella Medrano Platelet mean volume (Bld) [Entitic vol] 10.9 fL Normal 9.5-13.5 [facility] Comment on above: Performed By: #### C BC ####[facility] Jittjrryoe[address] [place] [id number]. Antonella Medrano PLT 245 103/ul Normal 150-450 [facility] Comment on above: Performed By: #### C BC ####[facility] Uyhapyzaso[address] [place] [id number]. Antonella Medrano RBC 5.05 106/ul Normal 4.20-5.40 [facility] Comment on above: Performed By: #### C BC ####[facility] Vxydypqkym6[address] [place] [id number]. Antonella Medrano WBC 7.8 103/ul Normal 4.0-11.0 [facility] Comment on above: Performed By: #### C BC ####[facility] B[address]zdeyh[address] [place] [id number]. Antonella Medrano CT ABD/PELV W CONon 07-31-[address] ABD/PELV W CON Normal [facility] CT CSPINE WO CONon 2 CT CSPINE WO CON Normal [facility] CT HEAD WO CONon 07-31-2022 CT HEAD WO CON Normal [facility] ER URINE PROFILEon 2 Bilirubin Ql (U) Negative Normal NEGATIVE [facility] Comment on above: Performed By: #### U MICRO, ERUR ####[facility] X[address]gepxujid[address] [place] [address]Dr. Antonella Medrano Clarity (U) CLEAR Normal CLEAR [facility] Comment on above: Performed By: #### U MICRO, ERUR ####[facility] Gycdxjczae[address] [place] [address]Dr. Antonella Medrano Color (U) LT. YELLOW Normal YELLOW [facility] Comment on above: Performed By: #### U MICRO, ERUR ####[facility] Ysznzxhsfg[address] [place] [address]Dr. Antonella Medrano ERUAHD A micrscopic examina tion will be performed if indicated. Normal [facility] Comment on above: Performed By: #### U MICRO, ERUR ####[facility] Btwxlmmupa[address] [place] [address]Dr. Antonella Medrano Glucose Ql (U) >1000 Abnormal NEGATIVE [facility] Comment on above: Performed By: #### U MICRO, ERUR ####[facility] Ikdeyajaov[address] [place] [address]Dr. Antonella Medrano Hemoglobin Ql (U) SMALL Abnormal NEGATIVE [facility] Comment on above: Performed By: #### U MICRO, ERUR ####[facility] Gmpmusidqj3036 [place] [address]Dr. Antonella Medrano Ketones Ql (U) Negative Normal NEGATIVE [facility] Comment on above: Performed By: #### U MICRO, ERUR ####[facility] Extirkmova[address] [place], [place] [address]Dr. Antonella Medrano LEUKOCYTES Negative Normal NEGATIVE [facility] Comment on above: Performed By: #### U MICRO, ERUR ####[facility] Nbwftfoeva[address] [place], [place] [address]Dr. Antonella Medrano Nitrite Ql (U) Negative Normal NEGATIVE [facility] Comment on above: Performed By: #### U MICRO, ERUR ####[facility] [address]fezvvgaa[address] [place] [address]DrGerman Medrano pH (U) 5.5 [pH] Normal 5-9 [facility] Comment on above: Performed By: #### U MICRO, ERUR ####[facility] Hwuivekmpy7992 [place] [address]DrGerman Medrano Protein (U) [Mass/Vol] 30 mg/dL Abnormal NEGAT LAZ/ TRACE [facility] Comment on above: Performed By: #### U MICRO, ERUR ####[facility] Evufhozfmr[address] [place], [place] [address]Dr. Antonella Medrano SPEC GRAVITY 1.010 Normal 1.005-<=1.0 25 [facility] Comment on above: Performed By: #### U MICRO, ERUR ####[facility] Qhacbwufbw[address] [place], [place] [address]Dr. Antonella Medrano UR MICRO IND INDICATED Normal [facility] Comment on above: Performed By: #### U MICRO, ERUR ####[facility] Ueatojeexh[address] [place], [place] [address]Dr. Antonella Medrano Urobilinogen Qn (U) 0.2 {Oleg'U}/dL Normal 0.2 - 1. 0 [facility] Comment on above: Performed By: #### U MICRO, ERUR ####[facility] Gtwdeqlfqg[address] [place], [place] [address]DrGerman Medrano PROF 14(COMP METB)on 022 Albumin [Mass/Vol] 3.0 g/dL Critically low 3.4-5.0 Th [facility] Comment on above: Performed By: #### C MP ####[facility] Nbxnlzxrxw[address] [place], [place] [address]DrGerman Medrano Albumin/Globulin [Mass ratio] 0.8 {ratio} Normal [facility] Comment on above: Performed By: #### C MP ####[facility] Yhdqmjkzfo[address] [place], [place] [address]Dr. Antonella Medrano ALP [Catalytic activity/Vol] 136 U/L Critically high 46-116 [facility] Comment on above: Performed By: #### C MP ####[facility] Atdkdynnvz2439 [place] [address]Dr. Antonella Medrano ALT [Catalytic activity/Vol] 11 U/L Critically low 14-59 [facility] Comment on above: Performed By: #### C MP ####[facility] Jndykxjxci9950 [place] [address]Dr. Antonella Medrano Anion gap [Moles/Vol] 7.7 mmol/L Normal [facility] Comment on above: Performed By: #### C MP ####[facility] Suibqsspro[address] [place], [place] [address]Dr. Antonella Medrano AST [Catalytic activity/Vol] 12 U/L Critically low 15-37 [facility] Comment on above: Performed By: #### C MP ####[facility] Fmsbszcvio[address] [place], [place] [address]Dr. Antonella Mitchell Bilirubin [Mass/Vol] 0.3 mg/dL Normal 0.2-1.0 [facility] Comment on above: Performed By: #### C MP ####[facility] [address]ycsyro[address] [place], [place] [address]Dr. Antonella Mitchell Calcium [Mass/Vol] 8.5 mg/dL Normal 8.5-10.1 [facility] Comment on above: Performed By: #### C MP ####[facility] Wxeewppxgx[address] [place], [place] [address]Dr. Antonella Mitchell Chloride [Moles/Vol] 100 mmol/L Normal 98-107 [facility] Comment on above: Performed By: #### C MP ####[facility] Vdtqvtvssq[address] [place], [place] [address]Dr. Antonella Mitchell CO2 [Moles/Vol] 27.2 mmol/L Normal 21.0-32.0 [facility] Comment on above: Performed By: #### C MP ####[facility] Cdilqojnws[address] [place], [place] [address]Dr. Antonella Mitchell Creatinine [Mass/Vol] 1.02 mg/dL Normal 0.55-1.02 [facility] Comment on above: Performed By: #### C MP ####[facility] Ssqvfporlq9419 [place] [address]Dr. Antonella Medrano EGFR-AF GUATEMALAN >60 Normal >=60 [facility] Comment on above: Performed By: #### C MP ####[facility] Qputszjwhg4330 [place] [address]Dr. Antonella Mitchell EGFR-NON AF GUATEMALAN 54 mL/min/1.73m2 Critically low >=60 [facility] Comment on above: Performed By: #### C MP ####[facility] Ffkvoghvvh2[address] [place], [place] [address]Dr. Antonella Medrano Globulin (S) [Mass/Vol] 3.6 g/dL Normal [facility] Comment on above: Performed By: #### C MP ####[facility] Bljbgsrslj[address] [place], [place] [address]Dr. Antonella Medrano Glucose [Mass/Vol] 453 mg/dL Critically high 74-106 T [facility] Comment on above: Performed By: #### C MP ####[facility] Qltfeuqypr[address] [place], [place] [address]Dr. Antonella Medrano Potassium [Moles/Vol] 3.9 mmol/L Normal 3.5-5.1 [facility] Comment on above: Performed By: #### C MP ####[facility] Fslboqwrgl[address] [place], [place] [address]Dr. Antonella Medrano Protein [Mass/Vol] 6.6 g/dL Normal 6.4-8.2 [facility] Comment on above: Performed By: #### C MP ####[facility] Qndylotbqd[address] [place], [place] [address]Dr. Antonella Medrano Sodium [Moles/Vol] 131 mmol/L Critically low 136-145 Th [facility] Comment on above: Performed By: #### C MP ####[facility] Lwnphlhkjk[address] [place], [place] [address]Dr. Antonella Medrano Urea nitrogen [Mass/Vol] 27.0 mg/dL Critically high 7.0-18.0 [facility] Comment on above: Performed By: #### C MP ####[facility] Jgledtxofk2[address] [place], [place] [address]Dr. Antonella Medrano Urea nitrogen/Creatinine [Mass ratio] 26.5 mg/mg Normal [facility] Comment on above: Performed By: #### C MP ####[facility] [address]emkhqp[address] [place], [place] [address]Dr. Antonella Medrano URINE MICROSCOPIC ONLYon BACTERIA TRACE Abnormal NONE SEEN [facility] Comment on above: Performed By: #### U MICRO, ERUR ####[facility] Cjlpudnbmq[address] [place], [place] [address]Dr. Antonella Medrano Bacteria identified Cx Nom (U) INDICATED Normal [facility] Comment on above: Performed By: #### U MICRO, ERUR ####[facility] K[address]jngeswo[address] [place], [place] [address]Dr. Antonella Medrano CAST NONE SEEN Normal NONE SEEN [facility] Comment on above: Performed By: #### U MICRO, ERUR ####[facility] [address]iklwqhdla[address] [place], [place] [address]Dr. Antonella Medrano Crystals LM Nom (Urine sed) NONE SEEN Normal NONE SEEN [facility] Comment on above: Performed By: #### U MICRO, ERUR ####[facility] Uzjfvnajly[address] [place], [place] [address]Dr. Antonella Medrano Epithelial cells LM Ql (Urine sed) RARE Normal NONE SEEN /RARE [facility] Comment on above: Performed By: #### U MICRO, ERUR ####[facility] Wmsgmohkmt[address] [place], [place] [address]Dr. Antonella Medrano MUCOUS NONE SEEN Normal NONE SEEN [facility] Comment on above: Performed By: #### U MICRO, ERUR ####[facility] Hcwuxqsbfy[address] [place], [place] [address]Dr. Antonella Medrano RBC NONE SEEN Abnormal 0-2 [facility] Comment on above: Performed By: #### U MICRO, ERUR ####[facility] [address]tst[address] [place] [address]n. Antonella Medrano WBC 5-10 Abnormal NONE SEEN [facility] Comment on above: Performed By: #### U MICRO, ERUR ####[facility] [address]udsgcebly[address] [place] [address]Dr. Antonella Mitchell YEAST PRESENT Abnormal NONE SEEN [facility] Comment on above: Performed By: #### U MICRO, ERUR ####[facility] Urukkdhabn60[address] [place] [address]Dr. Antonella Medrano Follow-Upon 07-18-2022 Follow-Up [id number] Rylan Blanc 1955 F Date Provider Department Center 07/18/2022 FANY JACOBS [facility] No family history on file Level of Service:46664 [place] OFFICE/OUTPATIENT ESTABLISHED MOD MDM 30-39 MIN Reason for Visit and Comments: Edema [[id number]] Coronary Artery Disease [187] Normal [facility] PROF CHEM 8 (BAS METB)on Anion gap [Moles/Vol] 12.7 mmol/L Normal [facility] Comment on above: Performed By: #### B MP ####[facility] Jgzvphiwky[address] [place] [address]Dr. Antonella Mitchell Calcium [Mass/Vol] 9.4 mg/dL Normal 8.5-10.1 [facility] Comment on above: Performed By: #### B MP ####[facility] Juanxznqgs1909 [place] [address]Dr. Antonella Medrano Chloride [Moles/Vol] 96 mmol/L Critically low 98-107 [facility] Comment on above: Performed By: #### B MP ####[facility] Chlnviknlb67[address] [place] [address]Dr. Antonella Medrano CO2 [Moles/Vol] 28.2 mmol/L Normal 21.0-32.0 [facility] Comment on above: Performed By: #### B MP ####[facility] Nbgjgkhoyb9[address] [place] [address]Dr. Mariafilemon Medrano Creatinine [Mass/Vol] 0.89 mg/dL Normal 0.55-1.02 [facility] Comment on above: Performed By: #### B MP ####[facility] K[address]ionjk[address] [place] [id number]. Mariafilemon Mitchell EGFR-AF GUATEMALAN >60 Normal >=60 [facility] Comment on above: Performed By: #### B MP ####[facility] Ndcxtzmcpx[address] [place] [id number]. Mariafilemon Mitchell EGFR-NON AF GUATEMALAN >60 Normal >=60 [facility] Comment on above: Performed By: #### B MP ####[facility] Deplwgfssu[address] [place] [id number]. Antonella Medrano Glucose [Mass/Vol] 395 mg/dL Critically high 74-[address] [facility] Comment on above: Performed By: #### B MP ####[facility] Wvotmzpybw3848 [place] [address]Dr. Antonella Medrano Potassium [Moles/Vol] 4.9 mmol/L Normal 3.5-5.1 [facility] Comment on above: Performed By: #### B MP ####[facility] Rfjeqyfbph99[address] [place] [id number]. Antonella Medrano Sodium [Moles/Vol] 132 mmol/L Critically low 136-145 Th [facility] Comment on above: Performed By: #### B MP ####[facility] Gfvwipcpsh25[address] [place] [id number]. Antonella Medrano Urea nitrogen [Mass/Vol] 29.0 mg/dL Critically high 7.0-18.0 [facility] Comment on above: Performed By: #### B MP ####[facility] Ubguatdzdr4802 [place] [id number]. Antonella Medrano Urea nitrogen/Creatinine [Mass ratio] 32.6 mg/mg Normal [facility] Comment on above: Performed By: #### B MP ####[facility] Dtzokkmnjs66[address] [place] [id number]. Antonella Medrano POINT OF CARE GLUCOSEon 082 Glucose [Mass/Vol] 82 mg/dL Normal 74-106 [facility] Comment on above: Performed By: #### P OCGLUC ####[facility] Eybobakihp[address] [place] [address]Dr. Antonella Medrano Glucose [Mass/Vol] 113 mg/dL Critically high 74-106 [facility] Comment on above: Performed By: #### P OCGLUC ####[facility] Avfigkpaul14[address] [place] [address]Dr. Antonella Medrano PROF 14(COMP METB)on 022 Albumin [Mass/Vol] 2.2 g/dL Critically low 3.4-5.0 [facility] Comment on above: Performed By: #### C MP ####[facility] Tncbiaucws9450 [place] [address]Dr. Antonella Medrano Albumin/Globulin [Mass ratio] 0.7 {ratio} Normal [facility] Comment on above: Performed By: #### C MP ####[facility] Qpdvhdsatt[address] [place], [place] [address]Dr. Antonella Medrano ALP [Catalytic activity/Vol] 80 U/L Normal 46-116 [facility] Comment on above: Performed By: #### C MP ####[facility] [address]ppukuxoe[address] [place], [place] [address]Dr. Antonella Medrano ALT [Catalytic activity/Vol] 9 U/L Critically low 14-59 [facility] Comment on above: Performed By: #### C MP ####[facility] Tsawouhqpk5216 [place] [address]Dr. Antonella Medrano Anion gap [Moles/Vol] 10.4 mmol/L Normal [facility] Comment on above: Performed By: #### C MP ####[facility] Cdsfcpnyxq8279 [place] [address]Dr. Antonella Medrano AST [Catalytic activity/Vol] 13 U/L Critically low 15-37 [facility] Comment on above: Performed By: #### C MP ####[facility] Rovyqutjhj16[address] [place] [address]Dr. Antonella Medrano Bilirubin [Mass/Vol] 0.3 mg/dL Normal 0.2-1.0 [facility] Comment on above: Performed By: #### C MP ####[facility] Njckxomjkj7007 [place] [address]Dr. Antonella Medrano Calcium [Mass/Vol] 7.9 mg/dL Critically low 8.5-10.1 [facility] Comment on above: Performed By: #### C MP ####[facility] Ybgfxklotd3863 [place] [address]Dr. Antonella Medrano Chloride [Moles/Vol] 107 mmol/L Normal 98-107 [facility] Comment on above: Performed By: #### C MP ####[facility] Ecvdhriarq4854 [place] [address]Dr. Antonella Medrano CO2 [Moles/Vol] 20.6 mmol/L Critically low 21.0-32.0 [facility] Comment on above: Performed By: #### C MP ####[facility] [address]aslmubz[address] [place], [place] [address]Dr. Antonella Medrano Creatinine [Mass/Vol] 0.88 mg/dL Normal 0.55-1.02 [facility] Comment on above: Performed By: #### C MP ####[facility] Xzvofqrfla[address] [place], [place] [address]Dr. Antonella Medrano EGFR-AF GUATEMALAN >60 Normal >=60 [facility] Comment on above: Performed By: #### C MP ####[facility] [address]ouecu[address] [place] [address]Dr. Antonella Medrano EGFR-NON AF GUATEMALAN >60 Normal >=60 [facility] Comment on above: Performed By: #### C MP ####[facility] Jlzyjpwslt[address] [place] [address]Dr. Antonella Medrano Globulin (S) [Mass/Vol] 3.0 g/dL Normal [facility] Comment on above: Performed By: #### C MP ####[facility] Uzzsqxuqdu4[address] [place] [address]Dr. Antonella Medrano Glucose [Mass/Vol] 120 mg/dL Critically high 74-106 T [facility] Comment on above: Performed By: #### C MP ####[facility] Dzbefqprqi37[address] [place] [address]Dr. Antonella Medrano Potassium [Moles/Vol] 4.0 mmol/L Normal 3.5-5.1 [facility] Comment on above: Performed By: #### C MP ####[facility] Iwfrhcijps[address] [place], [place] [address]Dr. Mariafilemon Medrano Protein [Mass/Vol] 5.2 g/dL Critically low 6.4-8.2 Th [facility] Comment on above: Performed By: #### C MP ####[facility] Ksjjbxihsi[address] [place], [place] [address]Dr. Mariafilemon Medrano Sodium [Moles/Vol] 134 mmol/L Critically low 136-145 Th [facility] Comment on above: Performed By: #### C MP ####[facility] Spqbitumcw7[address] [place], [place] [address]Dr. Antonella Medrano Urea nitrogen [Mass/Vol] 25.0 mg/dL Critically high 7.0-18.0 [facility] Comment on above: Performed By: #### C MP ####[facility] Erlizgqbre4[address] [place], [place] [address]Dr. Mariafilemon Mitchell Urea nitrogen/Creatinine [Mass ratio] 28.4 mg/mg Normal [facility] Comment on above: Performed By: #### C MP ####[facility] Dneynnehbz06[address] [place], [place] [address]Dr. Antonella Medrano AMMONIAon 05-13-2022 Ammonia (P) [Moles/Vol] 24 umol/L Normal - [facility] Comment on above: Performed By: #### A MM ####[facility] Errvlyrwqt3[address] [place], [place] [address]Dr. Antonlela Medrano BLOOD GASES BTYon 05-13-2022 02 MODE ROOM AIR Normal [facility] Comment on above: Performed By: #### A BG ####[facility] Ihffehwpbo59[address] [place], [place] [address]Dr. Antonella Medrano ALLENS TEST Positive Normal [facility] Comment on above: Performed By: #### A BG ####[facility] Mhzotwrieg[address] [place] [address]Dr. Antonella Medrano Base excess Calc (Bld) [Moles/Vol] 0.7 mmol/L Normal -2.0-2.0 [facility] Comment on above: Performed By: #### A BG ####[facility] Xyruixzkmq79[address] [place] [address]Dr. Antonella Medrano BIPAP PRESSURE Normal [facility] Comment on above: Performed By: #### A BG ####[facility] Ttqhkqohps8[address] [place], [place] [address]Dr. Antonella Medrano CPAP Normal [facility] Comment on above: Performed By: #### A BG ####[facility] Bqriqqouag[address] [place], [place] [address]Dr. Antonella Medrano FIO2 Normal [facility] Comment on above: Performed By: #### A BG ####[facility] Bzinxmxmif4[address] [place], [place] [address]Dr. Antonella Medrano HCO3 (Bld) [Moles/Vol] 24.4 mmol/L Normal 22.0-26.[address] [facility] Comment on above: Performed By: #### A BG ####[facility] Rogxxusmvz05[address] [place], [place] [address]Dr. Antonella Medrano LPM [facility] Comment on above: Performed By: #### A BG ####[facility] Sbgefclutw40[address] [place], [place] [address]Dr. Antonella Medrano MINUTE VOLUME Normal [facility] Comment on above: Performed By: #### A BG ####[facility] Ahuwwizzmm16[address] [place], [place] [address]Dr. Antonella Medrano Oxygen (Bld) [Partial pressure] 36.8 mm[Hg] Critically low 80.0-100.0 [facility] Comment on above: Result Comment: mixe d/venous blood Performed By: #### A BG ####[facility] Odezdhjdtb20[address] [place], [place] [address]Dr. Antonella Medrano Oxygen saturation in Blood 74.3 % Critically low 95.0-100.0 [facility] Comment on above: Result Comment: mixe d/venous blood Performed By: #### A BG ####[facility] Mbbawfjqbi040[address] [place] [address]Dr. Antonella Medrano PCO2 40.2 mmHg Normal 35.0-45.0 [facility] Comment on above: Performed By: #### A BG ####[facility] Axdtjvevuf78[address] [place] [address]Dr. Antonella Medrano PEEP [facility] Comment on above: Performed By: #### A BG ####[facility] Xzeutlknyl1689 [place] [address]Dr. Antonella Medrano pH (Bld) 7.409 [pH] Normal 7.350-7.450 [facility] Comment on above: Performed By: #### A BG ####[facility] Hslgigbwja[address] [place], [place] [address]Dr. Antonella Medrano PIP [facility] Comment on above: Performed By: #### A BG ####[facility] Kdektjwclm[address] [place], [place] [address]Dr. Antonella Medrano PS [facility] Comment on above: Performed By: #### A BG ####[facility] Wcmhrzupcp6[address] [place], [place] [address]Dr. Antonella Medrano PUNCTURE SITE RR [facility] Comment on above: Performed By: #### A BG ####[facility] Nhwsjafgju[address] [place], [place] [address]Dr. Antonella Medrano RATE [facility] Comment on above: Performed By: #### A BG ####[facility] Flfoqobczd[address] [place], [place] [address]Dr. Antonella Medrano VENT MODE [facility] Comment on above: Performed By: #### A BG ####[facility] Iubotboqli1369[address] [place], [place] [address]Dr. Antonella Medrano VT [facility] Comment on above: Performed By: #### A BG ####[facility] Jzoluqpyes7[address] [place], [place] [address]Dr. Antonella Medrano CARDIAC VICK 3-6on 2 CK [Catalytic activity/Vol] 38 U/L Normal 26-192 [facility] Comment on above: Performed By: #### C MREP ####[facility] Lchogwjluy[address] [place] [id number]. Antonella Medarno CK.MB [Mass/Vol] 1.28 ng/mL Normal <=3.60 [facility] Comment on above: Performed By: #### C MREP ####[facility] Jhrtrnmkro75[address] [place] [id number]. Antonella Medrano HSTROP 58.4 pg/mL Critically high 4.0-51.3 [facility] Comment on above: Result Comment: CUT- OFF POINTS HAVE BEEN ESTABLISHED BASED ON THE FOURTH UNIVERSAL DEFINITIONS OF MYOCARDIALINFARCTION. THE UPPER REFERENCE LIMIT (URL) OF TROPONIN, DEFINED THE 99TH PERCENTILE OFcTnI DISTRIBUTION IN A REFERENCE POPULATION, HAS BEEN CONFIRMED THE DECISION THRESHOLDFOR ID DIAGNOSIS. Performed By: #### C MREP ####[facility] Gvsfptcrsn[address] [place] [address]Dr. Antonella Medrano CK [Catalytic activity/Vol] 45 U/L Normal 26-192 [facility] Comment on above: Performed By: #### C MREP ####[facility] Jwigdmpyrf5[address] [place] [address]Dr. Antonella Medrano CK.MB [Mass/Vol] 1.53 ng/mL Normal <=3.60 [facility] Comment on above: Performed By: #### C MREP ####[facility] Ldncidedno0482 [place] [address]Dr. Antonella Medrano HSTROP 56.7 pg/mL Critically high 4.0-51.3 [facility] Comment on above: Result Comment: CUT- OFF POINTS HAVE BEEN ESTABLISHED BASED ON THE FOURTH UNIVERSAL DEFINITIONS OF MYOCARDIALINFARCTION. THE UPPER REFERENCE LIMIT (URL) OF TROPONIN, DEFINED THE 99TH PERCENTILE OFcTnI DISTRIBUTION IN A REFERENCE POPULATION, HAS BEEN CONFIRMED THE DECISION THRESHOLDFOR ID DIAGNOSIS. Performed By: #### C MREP ####[facility] Geaakurmqv[address] [place] [address]Dr. Antonella Medrano CARDIAC VICK ADMITon 022 CK [Catalytic activity/Vol] 47 U/L Normal 26-192 [facility] Comment on above: Performed By: #### ALICIA PANIAGUA ####[facility] Vostomcnfi[address] [place] [address]Dr. Antonella Medrano CK.MB [Mass/Vol] 1.38 ng/mL Normal <=3.60 [facility] Comment on above: Performed By: #### ALICIA PANIAGUA ####[facility] Wecxxliuxb050[address] [place] [address]Dr. Antonella Medrano HSTROP 57.9 pg/mL Critically high 4.0-51.3 [facility] Comment on above: Result Comment: CUT- OFF POINTS HAVE BEEN ESTABLISHED BASED ON THE FOURTH UNIVERSAL DEFINITIONS OF MYOCARDIALINFARCTION. THE UPPER REFERENCE LIMIT (URL) OF TROPONIN, DEFINED THE 99TH PERCENTILE OFcTnI DISTRIBUTION IN A REFERENCE POPULATION, HAS BEEN CONFIRMED THE DECISION THRESHOLDFOR ID DIAGNOSIS. Performed By: #### ALICIA PANIAGUA ####[facility] Osgnsnyjel[address] [place] [address]Dr. Antonella Medrano CHRISTOPHER 100 ng/mL Critically high 9-82 [facility] Comment on above: Performed By: #### ALICIA PANIAGUA ####[facility] Bafojntpyb[address] [place] [address]Dr. Antonella Mitchell CBC AUTO DIFFon 05-13-2022 BASO # 0.0 103/ul Normal 0.0-0.1 [facility] Comment on above: Performed By: #### C BC ####[facility] Mrinuhlfjf5198 [place] [address]Dr. Antonella Mitchell Basophils/100 WBC (Bld) 0.3 % Normal 0.2-2.0 [facility] Comment on above: Performed By: #### C BC ####[facility] Iaethopsls0554 [place] [address]Dr. Mariafilemon Medrano EO # 0.1 103/ul Normal 0.0-0.7 [facility] Comment on above: Performed By: #### C BC ####[facility] Melhchzshx9516 [place] [address]Dr. Antonella Medrano Eosinophils/100 WBC (Bld) 1.6 % Normal 0.9-7.0 [facility] Comment on above: Performed By: #### C BC ####[facility] Tmuoftrmdt[address] [place], [place] [address]Dr. Antonella Medrano Erythrocyte distribution width (RBC) [Ratio] 13.7 % Normal 11.0-15.0 [facility] Comment on above: Performed By: #### C BC ####[facility] Nxhqgbewur[address] [place], [place] [address]Dr. Antonella Medrano Hematocrit (Bld) [Volume fraction] 43.1 % Normal 36.0-48.0 [facility] Comment on above: Performed By: #### C BC ####[facility] Ahmdpxkenv[address] [place], [place] [address]Dr. Antonella Medrano Hemoglobin (Bld) [Mass/Vol] 14.1 g/dL Normal 12.0-16.0 [facility] Comment on above: Performed By: #### C BC ####[facility] Eqwbnxqmhn98[address] [place], [place] [address]Dr. Antonella Medrano IG # 0.10 10e3/ul Critically high 0.00-0.03 [facility] Comment on above: Performed By: #### C BC ####[facility] Zouhcjgfll[address] [place], [place] [address]Dr. Antonella Medrano IG % 1.2 % Critically high 0.0-0.5 [facility] Comment on above: Performed By: #### C BC ####[facility] Hlwaevypdk06[address] [place], [place] [address]Dr. Antonella Medrano LYMPH # 2.3 103/ul Normal 1.2-3.8 [facility] Comment on above: Performed By: #### C BC ####[facility] Qqsjwfpwzi05[address] [place], [place] [address]Dr. Antonella Medrano Lymphocytes/100 WBC (Bld) 26.2 % Normal 20.5-60.0 [facility] Comment on above: Performed By: #### C BC ####[facility] Cgardrjdvs4[address] [place] [id number]. Antonella Medrano MANUAL DIFF REQ NO Normal [facility] Comment on above: Performed By: #### C BC ####[facility] Pawdkbsvtc1595 [place] [address]Dr. Antonella Medrano MCH (RBC) [Entitic mass] 28.8 pg Normal 26.7-34.0 [facility] Comment on above: Performed By: #### C BC ####[facility] Zsrvinnrhq0414 [place] [address]Dr. Antonella Medrano MCHC (RBC) [Mass/Vol] 32.7 g/dL Normal 29.9-35.2 [facility] Comment on above: Performed By: #### C BC ####[facility] Lkpdnteaov8454 [place] [address]Dr. Antonella Mitchell MCV (RBC) [Entitic vol] 88.0 fL Normal 81.0-99.0 [facility] Comment on above: Performed By: #### C BC ####[facility] Mzcdxtwlhh[address] [place], [place] [address]Dr. Antonella Mitchell MONO # 0.8 103/ul Normal 0.3-0.8 [facility] Comment on above: Performed By: #### C BC ####[facility] Pvzhqyuwrc9[address] [place], [place] [address]Dr. Mariafilemon Medrano Monocytes/100 WBC (Bld) 9.3 % Normal 1.7-12.0 [facility] Comment on above: Performed By: #### C BC ####[facility] Hobvporpok38[address] [place], [place] [address]Dr. Antonella Medrano NEUT # 5.3 103/ul Normal 1.4-6.5 [facility] Comment on above: Performed By: #### C BC ####[facility] Mighmeiclp[address] [place], [place] [address]Dr. Mariafilemon Medrano Neutrophils/100 WBC (Bld) 61.4 % Normal 43.0-75.0 [facility] Comment on above: Performed By: #### C BC ####[facility] Vxjdnuuatu3398 [place] [address]Dr. Antonella Medrano Platelet mean volume (Bld) [Entitic vol] 10.6 fL Normal 9.5-13.5 [facility] Comment on above: Performed By: #### C BC ####[facility] Vzwsqxquey1621 [place] [address]Dr. Antonella Medrano PLT 291 103/ul Normal 150-450 [facility] Comment on above: Performed By: #### C BC ####[facility] Qzqyqgkayu87[address] [place], [place] [address]Dr. Antonella Medrano RBC 4.90 106/ul Normal 4.20-5.40 [facility] Comment on above: Performed By: #### C BC ####[facility] Ixfvnhvrch87[address] [place], [place] [address]Dr. Antonella Medrano WBC 8.7 103/ul Normal 4.0-11.0 [facility] Comment on above: Performed By: #### C BC ####[facility] Qnqffrjuls5[address] [place], [place] [address]Dr. Antonella Medrano BASO # 0.1 103/ul Normal 0.0-0.1 [facility] Comment on above: Performed By: #### C BC ####[facility] Pgijmicxxr1340[address] [place], [place] [address]Dr. Antonella Medrano Basophils/100 WBC (Bld) 0.5 % Normal 0.2-2.0 [facility] Comment on above: Performed By: #### C BC ####[facility] Mcanrgkofi73[address] [place], [place] [address]Dr. Antonella Medrano EO # 0.1 103/ul Normal 0.0-0.7 [facility] Comment on above: Performed By: #### C BC ####[facility] Rilssbisen[address] [place], [place] [address]Dr. Antonella Medrano Eosinophils/100 WBC (Bld) 1.3 % Normal 0.9-7.0 [facility] Comment on above: Performed By: #### C BC ####[facility] Gwlhtfoupx5[address] [place], [place] [address]Dr. Antonella Mitchell Erythrocyte distribution width (RBC) [Ratio] 13.7 % Normal 11.0-15.0 [facility] Comment on above: Performed By: #### C BC ####[facility] Bxsfjuboab06[address] [place] [address]Dr. Antonella Medrano Hematocrit (Bld) [Volume fraction] 45.2 % Normal 36.0-48.0 [facility] Comment on above: Performed By: #### C BC ####[facility] Jbjxwvzkgb7766[address] [place], [place] [address]Dr. Antonella Medrano Hemoglobin (Bld) [Mass/Vol] 14.9 g/dL Normal 12.0-16.0 [facility] Comment on above: Performed By: #### C BC ####[facility] Njjippfxbj514[address] [place], [place] [address]Dr. Antonella Medrano IG # 0.14 10e3/ul Critically high 0.00-0.03 [facility] Comment on above: Performed By: #### C BC ####[facility] Lgbzpsjkgn828[address] [place], [place] [address]Dr. Antonella Medrano IG % 1.4 % Critically high 0.0-0.5 [facility] Comment on above: Performed By: #### C BC ####[facility] Uizsoficrv7[address] [place], [place] [address]Dr. Mariafilemon Medrano LYMPH # 1.7 103/ul Normal 1.2-3.8 [facility] Comment on above: Performed By: #### C BC ####[facility] Imfpjywwff68[address] [place], [place] [address]Dr. Mariafilemon Medrano Lymphocytes/100 WBC (Bld) 16.1 % Critically low 20.5-60.0 [facility] Comment on above: Performed By: #### C BC ####[facility] Lsfsxewxsu367[address] [place], [place] [address]Dr. Mariafilemon Medrano MANUAL DIFF REQ NO Normal [facility] Comment on above: Performed By: #### C BC ####[facility] Crwiihyndk6[address] [place], [place] [address]Dr. Antonella Medrano MCH (RBC) [Entitic mass] 29.0 pg Normal 26.7-34.0 [facility] Comment on above: Performed By: #### C BC ####[facility] Ybomgyykmu056[address] [place], [place] [address]Dr. Antonella Medrano MCHC (RBC) [Mass/Vol] 33.0 g/dL Normal 29.9-35.2 [facility] Comment on above: Performed By: #### C BC ####[facility] Nqjwodhvrr[address] [place], [place] [address]Dr. Antnoella Mitchell MCV (RBC) [Entitic vol] 87.9 fL Normal 81.0-99.0 [facility] Comment on above: Performed By: #### C BC ####[facility] Fpkjmbfxca44[address] [place], [place] [address]Dr. Antonella Medrano MONO # 1.0 103/ul Critically high 0.3-0.8 [facility] Comment on above: Performed By: #### C BC ####[facility] Lwfhdyignw[address] [place], [place] [address]Dr. Antonella Medrano Monocytes/100 WBC (Bld) 9.2 % Normal 1.7-12.0 [facility] Comment on above: Performed By: #### C BC ####[facility] Gjdoeakrmo70[address] [place], [place] [address]Dr. Antonella Medrano NEUT # 7.4 103/ul Critically high 1.4-6.5 [facility] Comment on above: Performed By: #### C BC ####[facility] Vbeoczvnpe[address] [place], [place] [address]Dr. Antonella Medrano Neutrophils/100 WBC (Bld) 71.5 % Normal 43.0-75.0 [facility] Comment on above: Performed By: #### C BC ####[facility] Ugkzdbjuco05[address] [place], [place] [address]Dr. Antonella Medrano Platelet mean volume (Bld) [Entitic vol] 10.4 fL Normal 9.5-13.5 [facility] Comment on above: Performed By: #### C BC ####[facility] Tgusqnefhc6587 [place], [place] [address]Ri. Antonella Medrano PLT 289 103/ul Normal 150-450 [facility] Comment on above: Performed By: #### C BC ####[facility] Ndcdglvnbn0522 [place] [id number]. Antonella Medrano RBC 5.14 106/ul Normal 4.20-5.40 [facility] Comment on above: Performed By: #### C BC ####[facility] Gtnsadnxur7[address] [place] [id number]. Antonella Medrano WBC 10.3 103/ul Normal 4.0-11.0 [facility] Comment on above: Performed By: #### C BC ####[facility] Qjhlbiqnuq3686 [place] [id number]. Antonella Medrano CT HEAD WO CONon 05-13-2022 CT HEAD WO CON Normal [facility] CULTURE URINEon 05-13-2022 CULTURE URINE Culture Observations : HEAVY GROWTH OF MIXED GENITAL LUCY. NO POTENTIAL PATHOGENS SEEN. Normal [facility] Comment on above: Performed By: #### U RCX ####[facility] Zkaljlhkcf95[address] [place] [id number]. Antonella Medrano [facility]on 04[facility]24 SARS-CoV-2 (COVID-19) RNA TAISHA+probe Ql (Unsp spec) Not detected Normal NOT DETECTED [facility] Comment on above: Result Comment: When [...] for this test is supported by the [employer] of [employer] and Human Service's declaration that [...] be used). Performed By: #### C VDTB ####[facility] Liddcarqbe0764 [place] [address]Dr. Antonella Medrano ER URINE PROFILEon 2 Bilirubin Ql (U) Negative Normal NEGATIVE [facility] Comment on above: Performed By: #### U MICRO, ERUR ####[facility] Mthmsnnpnr1803 [place] [address]Dr. Antonella Medrano Clarity (U) CLEAR Normal CLEAR [facility] Comment on above: Performed By: #### U MICRO, ERUR ####[facility] Zflvdgoxmr[address] [place], [place] [address]Dr. Antonella Medrano Color (U) YELLOW Normal YELLOW [facility] Comment on above: Performed By: #### U MICRO, ERUR ####[facility] Elbjmzcvfq6[address] [place], [place] [address]Dr. Antonella Medrano ERUAHD A micrscopic examina tion will be performed if indicated. Normal [facility] Comment on above: Performed By: #### U MICRO, ERUR ####[facility] Biiflsvbos96[address] [place], [place] [address]Dr. Antonella Medrano Glucose Ql (U) >1000 Abnormal NEGATIVE [facility] Comment on above: Performed By: #### U MICRO, ERUR ####[facility] Qabectcxyx4740 [place] [address]Dr. Antonella Medrano Hemoglobin Ql (U) SMALL Abnormal NEGATIVE [facility] Comment on above: Performed By: #### U MICRO, ERUR ####[facility] Lsyriviwah9654 [place] [address]Dr. Antonella Medrano Ketones Ql (U) Negative Normal NEGATIVE [facility] Comment on above: Performed By: #### U MICRO, ERUR ####[facility] Uwwyjatrle[address] [place] [address]Dr. Antonella Medrano LEUKOCYTES SMALL Abnormal NEGATIVE [facility] Comment on above: Performed By: #### U MICRO, ERUR ####[facility] Tkunajsays[address] [place] [address]Dr. Antonella Medrano Nitrite Ql (U) Negative Normal NEGATIVE [facility] Comment on above: Performed By: #### U MICRO, ERUR ####[facility] Aaruftuhvv75[address] [place], [place] [address]Dr. Antonella Medrano pH (U) 5.5 [pH] Normal 5-9 [facility] Comment on above: Performed By: #### U MICRO, ERUR ####[facility] Bnxhbwjokx7[address] [place], [place] [address]Dr. Antonella Medrano Protein (U) [Mass/Vol] 100 mg/dL Abnormal NEGAT LAZ/ TRACE [facility] Comment on above: Performed By: #### U MICRO, ERUR ####[facility] Hxqexnwuyu5[address] [place], [place] [address]Dr. Antonella Medrano SPEC GRAVITY >=1.030 Abnormal 1.005-<=1.0 25 [facility] Comment on above: Performed By: #### U MICRO, ERUR ####[facility] Lptkjkktjk[address] [place], [place] [address]Dr. Antonella Medrano UR MICRO IND INDICATED Normal [facility] Comment on above: Performed By: #### U MICRO, ERUR ####[facility] Lybvnslttv[address] [place], [place] [address]Dr. Antonella Medrano Urobilinogen Qn (U) 0.2 {Oleg'U}/dL Normal 0.2 - 1. 0 [facility] Comment on above: Performed By: #### U MICRO, ERUR ####[facility] Hopfahekts[address] [place], [place] [address]Dr. Antonella Medrano ETHANOL (BLD ALC)on 05-13-20 ALC NOTE NOTE: 80 mg/dl is th e legal limit for a blood alcohol level Normal [facility] Comment on above: Performed By: #### E TH ####[facility] Wpnixekkeo[address] [place], [place] [address]Dr. Antonella Medrano Ethanol [Mass/Vol] mg/dL Normal [facility] Comment on above: Performed By: #### E TH ####[facility] Dcjvxrwhgi4475 [place] [address]Dr. Antonella Medrano LACTATE/LACTIC ACIDon 2021 Lactate [Moles/Vol] 1.3 mmol/L Normal 0.4-1.9 [facility] Comment on above: Performed By: #### L ACT ####[facility] Hlwoosucot17[address] [place] [address]Dr. Mariafilemon Mitchell POINT OF CARE GLUCOSEon 04-24 Glucose [Mass/Vol] 164 mg/dL Critically high 74-[address] [facility] Comment on above: Performed By: #### P OCGLUC ####[facility] Unoyrwuzud4[address] [place], [place] [address]Dr. Antonella Medrano Glucose [Mass/Vol] 172 mg/dL Critically high -[address] [place] [address] Comment on above: Performed By: #### P OCGLUC ####[facility] Hpsfhxhhbr[address] [place], [place] [address]Dr. Antonella Medrano Performed By: #### B MP ####[facility] Lxumunwnii4232[address] [place], [place] [address]Dr. Mariafilemon Mitchell Glucose [Mass/Vol] 253 mg/dL Critically high -[address] [facility] Comment on above: Performed By: #### P OCGLUC ####[facility] Pesizdkzwy60[address] [place], [place] [address]Dr. Antonella Mitchell Glucose [Mass/Vol] 146 mg/dL Critically high [address] [place] [address] Comment on above: Performed By: #### P OCGLUC ####[facility] Izoztvrif[address] [place], [place] [address]Dr. Antonella Medrano PROF CHEM 8 (BAS METB)on Anion gap [Moles/Vol] 11.4 mmol/L Normal [facility] Comment on above: Performed By: #### B MP ####[facility] Plkogcx[address] [place], [place] [address]Dr. Antonella Medrano Calcium [Mass/Vol] 8.4 mg/dL Critically low 8.5-10.1 [facility] Comment on above: Performed By: #### B MP ####[facility] [address] [place] [address]Dr. Antonella Medrano Chloride [Moles/Vol] 101 mmol/L Normal 98-107 [facility] Comment on above: Performed By: #### B MP ####[facility] Oflicyjxjh[address] [place] [address]Dr. Antonella Medrano CO2 [Moles/Vol] 26.5 mmol/L Normal 21.0-32.0 [facility] Comment on above: Performed By: #### B MP ####[facility] Ywqrcilfj[address] [place], [place] [address]Dr. Mariafilemon Mitchell Creatinine [Mass/Vol] 1.06 mg/dL Critically high 0.55-1.02 [facility] Comment on above: Performed By: #### B MP ####[facility] [address] [place], [place] [address]Dr. Mariafilemon Mitchell EGFR-AF GUATEMALAN >60 Normal >=60 [facility] Comment on above: Performed By: #### B MP ####[facility] Phvchzvf[address] [place], [place] [address]Dr. Mariafilemon Mitchell EGFR-NON AF GUATEMALAN 52 mL/min/1.73m2 Critically low >=60 [facility] Comment on above: Performed By: #### B MP ####[facility] [address] [place], [place] [address]Dr. Antonella Medrano Potassium [Moles/Vol] 3.9 mmol/L Normal 3.5-5.1 [facility] Comment on above: Performed By: #### B MP ####[facility] [address] [place], [place] [address]Dr. Antonella Medrano Sodium [Moles/Vol] 135 mmol/L Critically low 136-145 Th [facility] Comment on above: Performed By: #### B MP ####[facility] [address] [place], [place] [address]Dr. Antonella Medrano Urea nitrogen [Mass/Vol] 28.0 mg/dL Critically high 7.0-18.0 [facility] Comment on above: Performed By: #### B MP ####[facility] [address] [place] [id number]. Antonella Medrano Urea nitrogen/Creatinine [Mass ratio] 26.4 mg/mg Normal [facility] Comment on above: Performed By: #### B MP ####[facility] Tixvtjmija[address] [place] [id number]. Antonella Medrano Anion gap [Moles/Vol] 12.0 mmol/L Normal [facility] Comment on above: Performed By: #### C FERNANDEZ, BMP ####[facility] T[address] [place] [address]Dr. Antonella Medrano Calcium [Mass/Vol] 8.8 mg/dL Normal 8.5-10.1 [facility] Comment on above: Performed By: #### C FERNANDEZ, BMP ####[facility] [address] [place], [place] [address]Dr. Antonella Medrano Chloride [Moles/Vol] 101 mmol/L Normal 98-107 [facility] Comment on above: Performed By: #### C FERNANDEZ, BMP ####[facility] Dunuksxywl[address] [place], [place] [address]Dr. Antonella Medrano CO2 [Moles/Vol] 28.2 mmol/L Normal 21.0-32.0 [facility] Comment on above: Performed By: #### C FERNANDEZ, BMP ####[facility] [address] [place], [place] [id number]. Antonella Medrano Creatinine [Mass/Vol] 1.23 mg/dL Critically high 0.55-1.02 [facility] Comment on above: Performed By: #### C FERNANDEZ, BMP ####[facility] [address] [place], [place] [id number]. Antonella Medrano EGFR-AF GUATEMALAN 53 mL/min/1.73m2 Critically low >=60 [facility] Comment on above: Performed By: #### C FERNANDEZ, BMP ####[facility] F[address] [place], [place] [id number]. Antonella Medrano EGFR-NON AF GUATEMALAN 44 mL/min/1.73m2 Critically low >=60 [facility] Comment on above: Performed By: #### C FERNANDEZ, BMP ####[facility] [address] [place] [address]Dr. Mariafilemon Mitchell Glucose [Mass/Vol] 173 mg/dL Critically high 74-106 T [facility] Comment on above: Performed By: #### C FERNANDEZ, BMP ####[facility] Z[address]ok[address]fpao[address] [place] [address]Dr. Antonella Medrano Potassium [Moles/Vol] 4.2 mmol/L Normal 3.5-5.1 [facility] Comment on above: Performed By: #### C FERNANDEZ, BMP ####[facility] [address]muaax[address] [place] [address]Dr. Antonella Medrano Sodium [Moles/Vol] 137 mmol/L Normal 136-145 [facility] Comment on above: Performed By: #### C FERNANDEZ, BMP ####[facility] [address]nwtoun[address] [place], [place] [address]Dr. Antonella Medrano Urea nitrogen [Mass/Vol] 29.0 mg/dL Critically high 7.0-18.0 [facility] Comment on above: Performed By: #### C FERNANDEZ, BMP ####[facility] [address]lfr[address]ouns[address] [place], [place] [address]Dr. Antonella Medrano Urea nitrogen/Creatinine [Mass ratio] 23.6 mg/mg Normal [facility] Comment on above: Performed By: #### C FERNANDEZ, BMP ####[facility] R[address]irz[address] [place], [place] [address]Dr. Antonella Medrano URINE MICROSCOPIC ONLYon BACTERIA LARGE Abnormal NONE SEEN [facility] Comment on above: Performed By: #### U MICRO, ERUR ####[facility] [address] [place], [place] [address]Dr. Antonella Medrano Bacteria identified Cx Nom (U) INDICATED Normal [facility] Comment on above: Performed By: #### U MICRO, ERUR ####[facility] [address] [place], [place] [address]Dr. Antonella Medrano CAST NONE SEEN Normal NONE SEEN [facility] Comment on above: Performed By: #### U MICRO, ERUR ####[facility] [address] [place] [address]Dr. Antonella Mitchell Crystals LM Nom (Urine sed) NONE SEEN Normal NONE SEEN [facility] Comment on above: Performed By: #### U MICRO, ERUR ####[facility] [address] [place] [address]Dr. Mariafilemon Medrano Epithelial cells LM Ql (Urine sed) RARE Normal NONE SEEN /RARE [facility] Comment on above: Performed By: #### U MICRO, ERUR ####[facility] [address]ht[address] [place] [address]Dr. Mariafilemon Medrano MUCOUS NONE SEEN Normal NONE SEEN [facility] Comment on above: Performed By: #### U MICRO, ERUR ####[facility] [address] [place] [address]Dr. Antonella Medrano RBC 0-2 Normal 0-2 [facility] Comment on above: Performed By: #### U MICRO, ERUR ####[facility] [address] [place] [address]Dr. Antonella Medrano WBC 10-20 Abnormal NONE SEEN [facility] Comment on above: Performed By: #### U MICRO, ERUR ####[facility] [address] [place] [address]Dr. Antonella Medrano YEAST PRESENT Abnormal NONE SEEN [facility] Comment on above: Performed By: #### U MICRO, ERUR ####[facility] [address] [place] [address]Dr. Mariafilemon Medrano XR CHEST 1 Von 05-13-2022 XR CHEST 1 V Normal [facility] POC GLUCOSE LABon 03-25-2022 Glucose [Mass/Vol] 180 mg/dL High 70-100 [facility] Comment on above: Performed By: #### 1 0070, 62292 #### [facility] [address] [facility] [place] [address], [facility] Glucose [Mass/Vol] 189 mg/dL High 70-100 [facility] Comment on above: Performed By: #### 1 0070, 54706 #### [facility] [address] [place] [address], [place] POC GLUCOSE LABon 03-24-2022 Glucose [Mass/Vol] 198 mg/dL High 70-100 [facility] Comment on above: Performed By: #### 3 5200 #### [facility] [address] [place] [address], [place] Glucose [Mass/Vol] 175 mg/dL High 70-100 [facility] Comment on above: Performed By: #### 8 5499 #### [facility] [address] [place] [address], [place] Glucose [Mass/Vol] 148 mg/dL High 70-100 [facility] Comment on above: Performed By: #### 8 5499 #### [facility] [address] [place] [address], [place] Glucose [Mass/Vol] 85 mg/dL Normal 70-100 [facility] Comment on above: Performed By: #### 3 5200 #### [facility] [address] [place] [address], [place] POC GLUCOSE LABon 03-23-2022 Glucose [Mass/Vol] 173 mg/dL High 70-100 [facility] Comment on above: Performed By: #### 8 5499 #### [facility] [address] [place] [address], [place] Glucose [Mass/Vol] 190 mg/dL High 70-100 [facility] Comment on above: Performed By: #### 8 5499 #### [facility] [address] [place] [address], [place] Glucose [Mass/Vol] 141 mg/dL High 70-100 [facility] Comment on above: Performed By: #### 8 5499 #### [facility] [address] [place] [address], [place] Glucose [Mass/Vol] 188 mg/dL High 70-100 [facility] Comment on above: Performed By: #### 8 5499 #### [facility] [address] [place] [address], [place] POC GLUCOSE LABon 03-22-2022 Glucose [Mass/Vol] 225 mg/dL High 70-100 [facility] Comment on above: Performed By: #### 1 0070, 38612 #### [facility] [address] [place] [address], [place] Glucose [Mass/Vol] 241 mg/dL High 70-100 [facility] Comment on above: Performed By: #### 8 5499 #### [facility] [address] [facility] [place] [address], [place] Glucose [Mass/Vol] 182 mg/dL High 70-100 [facility] Comment on above: Performed By: #### 8 5499 #### [facility] [address] [facility] [place] [address], [place] Glucose [Mass/Vol] 212 mg/dL High 70-100 [facility] Comment on above: Performed By: #### 1 0070, 67125 #### [facility] [address] [facility] [address], [facility] MRI HIP WO CONTRAST RIGHTon 03-21-2022 MRI HIP WO CONTRAST RIGHT [facility] Department of Radiology [address] [place] [id number] Patient Name: KIARA BLANC : 1955 Sex: F Age: Race: White Pt. Location: [id number] Patient Status: I Ordered Date: 2022 2:20:00 [...] fracture. Electronically signed: Kj Pedersen. Transcribed by: [email or web address], User Resident: Electronically Signed by: KJ PEDERSEN @ 03/21/2022 12:05 PM Normal [facility] Comment on above: Order Comment: No: D o not add to previous draw POC GLUCOSE LABon 03-21-2022 Glucose [Mass/Vol] 270 mg/dL High 70-100 [facility] Comment on above: Performed By: #### 1 0070, 50426 #### [facility] [address] [place] [address], [place] Glucose [Mass/Vol] 256 mg/dL High 70-100 [facility] Comment on above: Performed By: #### 8 5499 #### [facility] [address] [place] [address], [place] Glucose [Mass/Vol] 250 mg/dL High 70-100 [facility] Comment on above: Performed By: #### 8 5499 #### [facility] [address] [place] [address], [place] Glucose [Mass/Vol] 223 mg/dL High 70-100 [facility] Comment on above: Performed By: #### 3 5200 #### [facility] [address] [place] [address], [facility] CT LOWER EXTREMITY WO CONTRA ST RIGHTon 2022 CT LOWER EXTREMITY WO CONTRAST RIGHT [facility] Department of Radiology [address] [place] [address] Patient Name: KIARA BLANC : 1955 Sex: F Age: Race: White Pt. Location: [id number] Patient Status: I Ordered Date: 2022 12:00:00 [...] fracture. Electronically signed: Rodo Melissa. Transcribed by: [email or web address], User Resident: Electronically Signed by: RODO MELISSA @ 2022 01:26 PM Normal [facility] Comment on above: Order Comment: No: D o not add to previous draw HIPS BILATERAL 2 VWS WITH PE LVISon 2022 HIPS BILATERAL 2 VWS WITH PELVIS [facility] Department of Radiology [address] [place] [id number] Patient Name: KIARA BLANC : 1955 Sex: F Age: Race: White Pt. Location: [address] [place] [address] Patient Status: I Ordered Date: 2022 9:05:00 [...] indicated. Electronically signed: Rodo Melissa. Transcribed by: [email or web address], User Resident: Electronically Signed by: RODO MELISSA @ 2022 02:13 PM Normal [facility] Comment on above: Order Comment: R/O F X, R pelvic crest, greater trochanter LUMBAR SPINE 2 OR 3 VWSon LUMBAR SPINE 2 OR 3 S [facility] Department of Radiology [address] [place] [phone] Patient Name: KIARA BLANC : 1955 Sex: F Age: Race: White Pt. Location: [id number] Patient Status: I Ordered Date: 2022 9:10:00 [...] described. Electronically signed: Rodo Melissa. Transcribed by: [email or web address], User Resident: Electronically Signed by: RODO MELISSA @ 2022 10:11 AM Normal [facility] Comment on above: Order Comment: No: D o not add to previous draw POC GLUCOSE LABon 2022 Glucose [Mass/Vol] 263 mg/dL High 70-100 [facility] Comment on above: Performed By: #### 3 5200 #### [facility] [address] [place] [address], [place] Glucose [Mass/Vol] 245 mg/dL High 70-100 [facility] Comment on above: Performed By: #### 3 5200 #### [facility] [address] [place] [address], [place] Glucose [Mass/Vol] 212 mg/dL High 70-100 [facility] Comment on above: Performed By: #### 3 5200 #### [facility] [address] [place] [address], [place] Glucose [Mass/Vol] 153 mg/dL High 70-100 [facility] Comment on above: Performed By: #### 8 5499 #### [facility] [address] [place] [address], [place] TSH3on 2022 TSH 3RD GENERATION 1.23 uIU/mL Normal 0.34-5.60 [facility] Comment on above: Order Comment: No: D o not add to previous draw Performed By: #### 1 0070, 61179 #### [facility] [address] [place] [address], [place] VITAMIN B12on 2022 Cobalamin (Vitamin B12) [Mass/Vol] 436 pg/mL Normal 180-914 [facility] Comment on above: Order Comment: No: D o not add to previous draw Result Comment: REFE RENCE RANGES: 180-914 pg/mL Normal 145-179 pg/mL Indeterminate <145 pg/mL Deficient Performed By: #### 1 0, 77225 #### [facility] [address] [place] [address], [place] VITAMIN D 25-HYDROXYon 03-20 VITAMIN D 25-OH 20.1 ng/mL Low 30.0-80.0 [facility] Comment on above: Result Comment: >80. 0 Toxicity possible Performed By: #### 1 69, 90229 #### [facility] [address] [place] [address], [place] POC GLUCOSE LABon 03-19-2022 Glucose [Mass/Vol] 140 mg/dL High 70-100 [facility] Comment on above: Performed By: #### 8 5499 #### [facility] [address] [place] [address], [place] Glucose [Mass/Vol] 111 mg/dL High 70-100 [facility] Comment on above: Performed By: #### 1 69, 30946 #### [facility] [address] [place] [address], [place] Glucose [Mass/Vol] 143 mg/dL High 70-100 [facility] Comment on above: Performed By: #### 8 5499 #### [facility] [address] [place] [address], [place] Glucose [Mass/Vol] 232 mg/dL High 70-100 [facility] Comment on above: Performed By: #### 3 5200 #### [facility] [address] [place] [address], [place] *URINE CULTUREon 03-18-2022 *URINE CULTURE Clinical Report: (D) Specimen/Source: URINE/CLEAN VOID URINE Collected: 03/18/2022 12:00 Status: Final Last Updated: 2022 10:33 ISO (Final) >100,000 Cfu/Ml Uro-Genital Lucy ISO (Final) Presumptive Grover glabrata >100,000 Cfu/Ml Normal [facility] Comment on above: Performed By: #### 8 5499 #### [facility] [address] [place] [address], [place] MAGNESIUM BLOODon 03-18-2022 Magnesium [Mass/Vol] 1.9 mg/dL Normal 1.9-2.7 [facility] Comment on above: Order Comment: No: D o not add to previous draw Performed By: #### 1 0070, 41268 #### [facility] [address] [place] [address], [place] POC GLUCOSE LABon 03-18-2022 Glucose [Mass/Vol] 256 mg/dL High 70-100 [facility] Comment on above: Performed By: #### 8 5499 #### [facility] [address] [place] [address], [place] Glucose [Mass/Vol] 262 mg/dL High 70-100 [facility] Comment on above: Performed By: #### 3 5200 #### [facility] [address] [place] [address], [place] Glucose [Mass/Vol] 215 mg/dL High 70-100 [facility] Comment on above: Performed By: #### 3 5200 #### [facility] [address] [place] [address], [place] Glucose [Mass/Vol] 361 mg/dL High 70-100 [facility] Comment on above: Performed By: #### 8 5499 #### [facility] [address] [place] [address], [place] URINALYSIS REFLEXon 03-18-20 22 Appearance (U) TURBID Abnormal CLEAR [facility] Comment on above: Order Comment: Yes: Add to Previous draw if able Criteria for reflexing a culture was not met. Please call the lab at [phone] within 24 hours of collection time if culture is needed Performed By: #### 3 0965 #### [facility] [address] [facility] [place] [address], [facility] Bilirubin Ql (U) Negative Normal NEGATIVE [facility] Comment on above: Order Comment: Yes: Add to Previous draw if able Criteria for reflexing a culture was not met. Please call the lab at [phone] within 24 hours of collection time if culture is needed Performed By: #### 3 0965 #### [facility] [address] BUDDING YEAST MANY Abnormal NONE SEEN [facility] Comment on above: Order Comment: Yes: Add to Previous draw if able Criteria for reflexing a culture was not met. Please call the lab at [phone] within 24 hours of collection time if culture is needed Performed By: #### 3 0965 #### [facility] [address] [facility]. [address] Color (U) YELLOW Normal YELLOW [facility] Comment on above: Order Comment: Yes: Add to Previous draw if able Criteria for reflexing a culture was not met. Please call the lab at [phone] within 24 hours of collection time if culture is needed Performed By: #### 3 0965 #### [facility] [address] [facility] [place] [address], [facility] EPIS MANY Abnormal FEW,OCC,NON E SEEN [facility] Comment on above: Order Comment: Yes: Add to Previous draw if able Criteria for reflexing a culture was not met. Please call the lab at [phone] within 24 hours of collection time if culture is needed Performed By: #### 3 0965 #### [facility] [address] [facility] [place] [address], [facility] Glucose Ql (U) >=500 Abnormal NEGATIVE [facility] Comment on above: Order Comment: Yes: Add to Previous draw if able Criteria for reflexing a culture was not met. Please call the lab at [phone] within 24 hours of collection time if culture is needed Performed By: #### 3 0965 #### [facility] [address] [place] [address], [facility] Hemoglobin Ql (U) SMALL Abnormal NEGATIVE [facility] Comment on above: Order Comment: Yes: Add to Previous draw if able Criteria for reflexing a culture was not met. Please call the lab at [phone] within 24 hours of collection time if culture is needed Performed By: #### 3 0965 #### [facility] [address] [place] [address], [facility] KETONE Negative Normal NEGATIVE [facility] Comment on above: Order Comment: Yes: Add to Previous draw if able Criteria for reflexing a culture was not met. Please call the lab at [phone] within 24 hours of collection time if culture is needed Performed By: #### 3 0965 #### [facility] [address] [place] [address], [facility] LEUK TESHA LARGE Abnormal NEGATIVE [facility] Comment on above: Order Comment: Yes: Add to Previous draw if able Criteria for reflexing a culture was not met. Please call the lab at [phone] within 24 hours of collection time if culture is needed Performed By: #### 3 0965 #### [facility] [address] [facility] [address], [facility] Nitrite Ql (U) Negative Normal NEGATIVE [facility] Comment on above: Order Comment: Yes: Add to Previous draw if able Criteria for reflexing a culture was not met. Please call the lab at [phone] within 24 hours of collection time if culture is needed Performed By: #### 3 0965 #### [facility] [address] [facility] [place] [address], [facility] pH (U) 6.0 [pH] Normal 5.0-8.0 [facility] Comment on above: Order Comment: Yes: Add to Previous draw if able Criteria for reflexing a culture was not met. Please call the lab at [phone] within 24 hours of collection time if culture is needed Performed By: #### 3 0965 #### [facility] [address] [facility]. [address] Protein Ql (U) 30 mg/dL Abnormal NEGATIVE [facility] Comment on above: Order Comment: Yes: Add to Previous draw if able Criteria for reflexing a culture was not met. Please call the lab at [phone] within 24 hours of collection time if culture is needed Performed By: #### 3 0965 #### [facility] [address] [facility] [place] [address], [facility] RBC 6-10 Abnormal NONE SEEN [facility] Comment on above: Order Comment: Yes: Add to Previous draw if able Criteria for reflexing a culture was not met. Please call the lab at [phone] within 24 hours of collection time if culture is needed Performed By: #### 3 0965 #### [facility] [address] [facility]. [address] SPEC GRAV 1.009 Low 1.015-1.020 [facility] Comment on above: Order Comment: Yes: Add to Previous draw if able Criteria for reflexing a culture was not met. Please call the lab at [phone] within 24 hours of collection time if culture is needed Performed By: #### 3 0965 #### [facility] [address] [facility]. [address] WBC UA >100 Abnormal NONE SEEN [facility] Comment on above: Order Comment: Yes: Add to Previous draw if able Criteria for reflexing a culture was not met. Please call the lab at [phone] within 24 hours of collection time if culture is needed Performed By: #### 3 0965 #### [facility] [address] [facility]. [address] BASIC METABOLIC PANELon 06-2 Calcium [Mass/Vol] 8.3 mg/dL Low 8.6-10.3 [facility] Comment on above: Order Comment: No: D o not add to previous draw Performed By: #### 1 0070, 41395 #### [facility] [address] [facility] [place] [address], [place] Chloride [Moles/Vol] 106 mmol/L Normal 98-107 [facility] Comment on above: Order Comment: No: D o not add to previous draw Performed By: #### 1 69, 32996 #### [facility] [address] [place] [address], [place] CO2 [Moles/Vol] 24 mmol/L Normal 21-31 [facility] Comment on above: Order Comment: No: D o not add to previous draw Performed By: #### 1 69, 84995 #### [facility] [address] [place] [address], [place] Creatinine [Mass/Vol] 0.73 mg/dL Normal 0.60-1.20 [facility] Comment on above: Order Comment: No: D o not add to previous draw Performed By: #### 1 69, 42119 #### [facility] [address] [place] [address], [place] GFR/1.73 sq M.predicted among blacks MDRD (S/P/Bld) [Vol rate/Area] mL/min/{1.73_m2} Normal >60 [facility] Comment on above: Order Comment: No: D o not add to previous draw Performed By: #### 1 69, 26812 #### [facility] [address] [place] [address], [place] GFR/1.73 sq M.predicted among non-blacks MDRD (S/P/Bld) [Vol rate/Area] mL/min/{1.73_m2} Normal >60 [facility] Comment on above: Order Comment: No: D o not add to previous draw Performed By: #### 1 69, 90298 #### [facility] [address] [place] [address], [place] Glucose [Mass/Vol] 218 mg/dL High 70-100 [facility] Comment on above: Order Comment: No: D o not add to previous draw Performed By: #### 1 69, 38098 #### [facility] [address] [place] [address], [facility] Potassium [Moles/Vol] 4.2 mmol/L Normal 3.5-5.1 [facility] Comment on above: Order Comment: No: D o not add to previous draw Performed By: #### 1 69, 63141 #### [facility] [address] [place] [address], [facility] Sodium [Moles/Vol] 136 mmol/L Normal 136-145 [facility] Comment on above: Order Comment: No: D o not add to previous draw Performed By: #### 1 69, 49516 #### [facility] [address] [place] [address], [facility] Urea nitrogen [Mass/Vol] 18 mg/dL Normal 7-25 [facility] Comment on above: Order Comment: No: D o not add to previous draw Performed By: #### 1 69, 08213 #### [facility] [address] [facility] [address], [facility] CBC W/DIFFon 03-17-2022 ABS IMM GRANS 0.1 10*3/uL Normal 0.0-0.2 [facility] Comment on above: Order Comment: No: D o not add to previous draw Performed By: #### 8 5499 #### [facility] [address] [place] [address], [facility] ABS NEUTROPHILS 4.2 10*3/uL Normal 1.6-7.6 [facility] Comment on above: Order Comment: No: D o not add to previous draw Performed By: #### 8 5499 #### [facility] [address] [place] [address], [facility] Basophils (Bld) [#/Vol] 0.0 10*3/uL Normal 0.0-0.2 [facility] Comment on above: Order Comment: No: D o not add to previous draw Performed By: #### 8 5499 #### [facility] [address] [place] [address], [facility] Basophils/100 WBC (Bld) 0.4 % Normal 0.0-1.0 [facility] Comment on above: Order Comment: No: D o not add to previous draw Performed By: #### 8 5499 #### [facility] [address] [place] [address], [place] Eosinophils (Bld) [#/Vol] 0.2 10*3/uL Normal 0.0-0.5 [facility] Comment on above: Order Comment: No: D o not add to previous draw Performed By: #### 8 5499 #### [facility] [address] [place] [address], [facility] Eosinophils/100 WBC (Bld) 3.4 % Normal 0.0-6.0 [facility] Comment on above: Order Comment: No: D o not add to previous draw Performed By: #### 8 5499 #### [facility] [address] [place] [id number], [facility] Erythrocyte distribution width (RBC) [Ratio] 13.4 % Normal 11.5-15.0 [facility] Comment on above: Order Comment: No: D o not add to previous draw Performed By: #### 8 5499 #### [facility] [address] [place] [id number], [facility] Hematocrit (Bld) [Volume fraction] 42.7 % Normal 36.0-45.0 [facility] Comment on above: Order Comment: No: D o not add to previous draw Performed By: #### 8 5499 #### [facility] [address] [place] [address], [facility] Hemoglobin (Bld) [Mass/Vol] 13.8 g/dL Normal 12.0-15.0 [facility] Comment on above: Order Comment: No: D o not add to previous draw Performed By: #### 8 5499 #### [facility] [address] [place] [address], [facility] IMMATURE GRANS 0.8 % Normal 0.0-1.0 [facility] Comment on above: Order Comment: No: D o not add to previous draw Performed By: #### 8 5499 #### [facility] [address] [place] [id number], [facility] Lymphocytes (Bld) [#/Vol] 1.8 10*3/uL Normal 1.2-4.0 [facility] Comment on above: Order Comment: No: D o not add to previous draw Performed By: #### 8 5499 #### [facility] [address] [place] [id number], [facility] Lymphocytes/100 WBC (Bld) 25.8 % Normal 20.0-45.0 [facility] Comment on above: Order Comment: No: D o not add to previous draw Performed By: #### 8 5499 #### [facility] [address] [address], [facility] MCH (RBC) [Entitic mass] 28.3 pg Normal 27.0-33.0 [facility] Comment on above: Order Comment: No: D o not add to previous draw Performed By: #### 8 5499 #### [facility] [address] [place] [id number], [facility] MCHC (RBC) [Mass/Vol] 32.3 g/dL Normal 32.0-35.0 [facility] Comment on above: Order Comment: No: D o not add to previous draw Performed By: #### 8 5499 #### [facility] [address] [place] [id number], [facility] MCV (RBC) [Entitic vol] 87.7 fL Normal 82.0-98.0 [facility] Comment on above: Order Comment: No: D o not add to previous draw Performed By: #### 8 5499 #### [facility] [address] [place] [address], [facility] Monocytes (Bld) [#/Vol] 0.7 10*3/uL Normal 0.1-1.0 [facility] Comment on above: Order Comment: No: D o not add to previous draw Performed By: #### 8 5499 #### [facility] [address] [place] [id number], [facility] MONOS 9.9 % Normal 5.0-12.0 [facility] Comment on above: Order Comment: No: D o not add to previous draw Performed By: #### 8 5499 #### [facility] [address] [place] [address], [facility] Neutrophils/100 WBC (Bld) 59.7 % Normal 40.0-72.0 [facility] Comment on above: Order Comment: No: D o not add to previous draw Performed By: #### 8 5499 #### [facility] [address] [place] [address], [facility] Nucleated RBC/100 WBC (Bld) [Ratio] 0 % Normal 0-0 [facility] Comment on above: Order Comment: No: D o not add to previous draw Performed By: #### 8 5499 #### [facility] [address] [place] [address], [facility] PLAT CNT 248 10*3/uL Normal 150-400 [facility] Comment on above: Order Comment: No: D o not add to previous draw Performed By: #### 8 5499 #### [facility] [address] [place] [id number], [facility] RBC (Bld) [#/Vol] 4.87 10*6/uL Normal 3.80-5.00 [facility] Comment on above: Order Comment: No: D o not add to previous draw Performed By: #### 8 5499 #### [facility] [address] [place] [address], [facility] WBC (Bld) [#/Vol] 7.08 10*3/uL Normal 4.00-10.60 [facility] Comment on above: Order Comment: No: D o not add to previous draw Performed By: #### 8 5499 #### [facility] [address] [place] [address], [place] MAGNESIUM BLOODon 03-17-2022 Magnesium [Mass/Vol] 1.5 mg/dL Low 1.9-2.7 [facility] Comment on above: Order Comment: No: D o not add to previous draw Performed By: #### 1 0070, 68364 #### [facility] [address] [place] [address], [place] POC GLUCOSE LABon 03-17-2022 Glucose [Mass/Vol] 406 mg/dL High 70-100 [facility] Comment on above: Performed By: #### 1 0070, 43596 #### [facility] [address] [place] [address], [place] Glucose [Mass/Vol] 282 mg/dL High 70-100 [facility] Comment on above: Performed By: #### 8 5499 #### [facility] [address] [place] [address], [place] Glucose [Mass/Vol] 152 mg/dL High 70-100 [facility] Comment on above: Performed By: #### 8 5499 #### [facility] [address] [place] [address], [place] Glucose [Mass/Vol] 199 mg/dL High 70-100 [facility] Comment on above: Performed By: #### 3 5200 #### [facility] [address] [place] [address], [place] TROPONIN-Ion 03-17-2022 Troponin I.cardiac [Mass/Vol] 0.05 ng/mL High 0.00-0.04 [facility] Comment on above: Order Comment: No: D o not add to previous draw Result Comment: REFE RENCE RANGES: 0.00 - 0.04 ng/ml NORMAL 0.05 - 0.50 ng/ml INDETERMINATE > 0.50 ng/ml CONSISTENT WITH AN M.I. Performed By: #### 1 0070, 86192 #### [facility] [address] [place] [address], [facility] Troponin I.cardiac [Mass/Vol] 0.06 ng/mL High 0.00-0.04 [facility] Comment on above: Order Comment: No: D o not add to previous draw Result Comment: REFE RENCE RANGES: 0.00 - 0.04 ng/ml NORMAL 0.05 - 0.50 ng/ml INDETERMINATE > 0.50 ng/ml CONSISTENT WITH AN M.I. Performed By: #### 3 5200 #### [facility] [address] [place] [address], [facility] Troponin I.cardiac [Mass/Vol] 0.06 ng/mL High 0.00-0.04 [facility] Comment on above: Order Comment: No: D o not add to previous draw Result Comment: REFE RENCE RANGES: 0.00 - 0.04 ng/ml NORMAL 0.05 - 0.50 ng/ml INDETERMINATE > 0.50 ng/ml CONSISTENT WITH AN M.I. Performed By: #### 1 0, 20131 #### [facility] [address] BASIC METABOLIC PANELon 06-2 Calcium [Mass/Vol] 9.1 mg/dL Normal 8.6-10.3 [facility] Comment on above: Order Comment: No: D o not add to previous draw Performed By: #### 8 3219 #### [facility] [address] [place] [address], [facility] Chloride [Moles/Vol] 103 mmol/L Normal 98-107 [facility] Comment on above: Order Comment: No: D o not add to previous draw Performed By: #### 8 8909 #### [facility] [address] [place] [address], [place] CO2 [Moles/Vol] 24 mmol/L Normal 21-31 [facility] Comment on above: Order Comment: No: D o not add to previous draw Performed By: #### 8 5499 #### [facility] [address] [place] [address], [place] Creatinine [Mass/Vol] 0.68 mg/dL Normal 0.60-1.20 [facility] Comment on above: Order Comment: No: D o not add to previous draw Performed By: #### 8 5499 #### [facility] [address] [place] [address], [place] GFR/1.73 sq M.predicted among blacks MDRD (S/P/Bld) [Vol rate/Area] mL/min/{1.73_m2} Normal >60 [facility] Comment on above: Order Comment: No: D o not add to previous draw Performed By: #### 8 5499 #### [facility] [address] [place] [address], [place] GFR/1.73 sq M.predicted among non-blacks MDRD (S/P/Bld) [Vol rate/Area] mL/min/{1.73_m2} Normal >60 [facility] Comment on above: Order Comment: No: D o not add to previous draw Performed By: #### 8 5499 #### [facility] [address] [place] [address], [place] Glucose [Mass/Vol] 196 mg/dL High 70-100 [facility] Comment on above: Order Comment: No: D o not add to previous draw Performed By: #### 8 5499 #### [facility] [address] [place] [address], [place] Potassium [Moles/Vol] 4.1 mmol/L Normal 3.5-5.1 [facility] Comment on above: Order Comment: No: D o not add to previous draw Performed By: #### 8 5499 #### [facility] [address] [place] [address], [facility] Sodium [Moles/Vol] 137 mmol/L Normal 136-145 [facility] Comment on above: Order Comment: No: D o not add to previous draw Performed By: #### 8 5499 #### [facility] [address] [place] [address], [facility] Urea nitrogen [Mass/Vol] 12 mg/dL Normal 7-25 [facility] Comment on above: Order Comment: No: D o not add to previous draw Performed By: #### 8 5499 #### [facility] [address] BNP (B-TYPE NATRIURETIC PEPT RAMAN)on 03-16-2022 Natriuretic peptide B (Bld) [Mass/Vol] 208 pg/mL High 0-100 [facility] Comment on above: Order Comment: No: D o not add to previous draw Result Comment: Give n the appropriate clinical setting a BNP result of >100 pg/mL indicates congestive heart failure. Performed By: #### 1 0070, 14284 #### [facility] [address] [facility] CARDIAC VICK 3-6on 2 CK [Catalytic activity/Vol] 43 U/L Normal 26-192 [facility] Comment on above: Performed By: #### C MREP ####[facility] [address] [place], [place] [address]Qt. Antonella Medrano CK.MB [Mass/Vol] 1.84 ng/mL Normal <=3.60 [facility] Comment on above: Performed By: #### C MREP ####[facility] [address] [place], [place] [address]Bq. Antonella Medrano HSTROP 111.7 pg/mL Critically high 4.0-51.3 [facility] Comment on above: Result Comment: CUT- OFF POINTS HAVE BEEN ESTABLISHED BASED ON THE FOURTH UNIVERSAL DEFINITIONS OF MYOCARDIALINFARCTION. THE UPPER REFERENCE LIMIT (URL) OF TROPONIN, DEFINED THE 99TH PERCENTILE OFcTnI DISTRIBUTION IN A REFERENCE POPULATION, HAS BEEN CONFIRMED THE DECISION THRESHOLDFOR ID DIAGNOSIS.repeated Performed By: #### C MREP ####[facility] [address] [place] [id number]. Antonella Medrano CK [Catalytic activity/Vol] 45 U/L Normal 26-192 [facility] Comment on above: Performed By: #### C MREP ####[facility] [address] [place] [id number]. Antonella Medrano CK.MB [Mass/Vol] 1.64 ng/mL Normal <=3.60 [facility] Comment on above: Performed By: #### C MREP ####[facility] [address] [place] [address]Dr. Antonella Medrano HSTROP 88.9 pg/mL Critically high 4.0-51.3 [facility] Comment on above: Result Comment: CUT- OFF POINTS HAVE BEEN ESTABLISHED BASED ON THE FOURTH UNIVERSAL DEFINITIONS OF MYOCARDIALINFARCTION. THE UPPER REFERENCE LIMIT (URL) OF TROPONIN, DEFINED THE 99TH PERCENTILE OFcTnI DISTRIBUTION IN A REFERENCE POPULATION, HAS BEEN CONFIRMED THE DECISION THRESHOLDFOR ID DIAGNOSIS. Performed By: #### C MREP ####[facility] [address] [place] [id number]. Antonella Medrano CARDIAC VICK ADMITon 022 CK [Catalytic activity/Vol] 45 U/L Normal 26-192 [facility] Comment on above: Performed By: #### EMMANUEL Castillo MP ####[facility] [address] [place] [id number]. Antonella Medrano CK.MB [Mass/Vol] 1.93 ng/mL Normal <=3.60 [facility] Comment on above: Performed By: #### EMMANUEL Castillo MP ####[facility] [address] [place] [id number]. Antonella Medrano HSTROP 84.6 pg/mL Critically high 4.0-51.3 [facility] Comment on above: Result Comment: CUT- OFF POINTS HAVE BEEN ESTABLISHED BASED ON THE FOURTH UNIVERSAL DEFINITIONS OF MYOCARDIALINFARCTION. THE UPPER REFERENCE LIMIT (URL) OF TROPONIN, DEFINED THE 99TH PERCENTILE OFcTnI DISTRIBUTION IN A REFERENCE POPULATION, HAS BEEN CONFIRMED THE DECISION THRESHOLDFOR ID DIAGNOSIS. Performed By: #### B EMMANUEL ROACH ####[facility] [address] [place], [place] [address]Dr. Antonella Medrano CHRISTOPHER 79 ng/mL Normal 9-82 [facility] Comment on above: Performed By: #### B EMMANUEL ROACH ####[facility] [address] [place], [place] [address]Dr. Antonella Medrano CBC AUTO DIFFon 03-16-2022 BASO # 0.0 103/ul Normal 0.0-0.1 [facility] Comment on above: Performed By: #### C BC ####[facility] [address] [place], [place] [address]Dr. Antonella Medrano Basophils/100 WBC (Bld) 0.5 % Normal 0.2-2.0 [facility] Comment on above: Performed By: #### C BC ####[facility] [address] [place], [place] [address]Dr. Antonella Medrano EO # 0.2 103/ul Normal 0.0-0.7 [facility] Comment on above: Performed By: #### C BC ####[facility] [address] [place], [place] [address]Dr. Antonella Medrano Eosinophils/100 WBC (Bld) 2.9 % Normal 0.9-7.0 [facility] Comment on above: Performed By: #### C BC ####[facility] [address] [place], [place] [address]Dr. Antonella Medrano Erythrocyte distribution width (RBC) [Ratio] 13.2 % Normal 11.0-15.0 [facility] Comment on above: Performed By: #### C BC ####[facility] [address] [place], [place] [address]Dr. Antonella Medrano Hematocrit (Bld) [Volume fraction] 44.5 % Normal 36.0-48.0 [facility] Comment on above: Performed By: #### C BC ####[facility] [address] [place] [id number]. Antonella Medrano Hemoglobin (Bld) [Mass/Vol] 14.7 g/dL Normal 12.0-16.0 [facility] Comment on above: Performed By: #### C BC ####[facility] [address] [place] [id number]. Antonella Medrano IG # 0.10 10e3/ul Critically high 0.00-0.03 [facility] Comment on above: Performed By: #### C BC ####[facility] [address] [place] [address]Dr. Antonella Mitchell IG % 1.3 % Critically high 0.0-0.5 [facility] Comment on above: Performed By: #### C BC ####[facility] [address] [place], [place] [address]Dr. Antonella Mitchell LYMPH # 1.7 103/ul Normal 1.2-3.8 [facility] Comment on above: Performed By: #### C BC ####[facility] [address] [place] [address]Dr. Antonella Mitchell Lymphocytes/100 WBC (Bld) 22.0 % Normal 20.5-60.0 [facility] Comment on above: Performed By: #### C BC ####[facility] [address] [place] [address]Dr. Mariafilemon Medrano MANUAL DIFF REQ NO Normal [facility] Comment on above: Performed By: #### C BC ####[facility] [address] [place] [id number]. Antonella Medrano MCH (RBC) [Entitic mass] 28.7 pg Normal 26.7-34.0 [facility] Comment on above: Performed By: #### C BC ####[facility] [address] [place] [id number]. Antonella Mitchell MCHC (RBC) [Mass/Vol] 33.0 g/dL Normal 29.9-35.2 [facility] Comment on above: Performed By: #### C BC ####[facility] [address] [place] [id number]. Antonella Medrano MCV (RBC) [Entitic vol] 86.7 fL Normal 81.0-99.0 [facility] Comment on above: Performed By: #### C BC ####[facility] [address] [place] [id number]. Antonella Medrano MONO # 0.7 103/ul Normal 0.3-0.8 [facility] Comment on above: Performed By: #### C BC ####[facility] [address] [place] [id number]. Mariafilemon Medrano Monocytes/100 WBC (Bld) 9.8 % Normal 1.7-12.0 [facility] Comment on above: Performed By: #### C BC ####[facility] [address] [place], [place] [address]Dr. Antonella Medrano NEUT # 4.8 103/ul Normal 1.4-6.5 [facility] Comment on above: Performed By: #### C BC ####[facility] [address] [place], [place] [address]Dr. Antonella Mitchell Neutrophils/100 WBC (Bld) 63.5 % Normal 43.0-75.0 [facility] Comment on above: Performed By: #### C BC ####[facility] [address] [place], [place] [address]Dr. Antonella Mitchell Platelet mean volume (Bld) [Entitic vol] 10.5 fL Normal 9.5-13.5 [facility] Comment on above: Performed By: #### C BC ####[facility] [address] [place] [id number]. Antonella Mitchell PLT 262 103/ul Normal 150-450 [facility] Comment on above: Performed By: #### C BC ####[facility] [address] [place] [id number]. Antonella Medrano RBC 5.13 106/ul Normal 4.20-5.40 [facility] Comment on above: Performed By: #### C BC ####[facility] [address] [place], [place] [address]Gx. Antonella Medrano WBC 7.5 103/ul Normal 4.0-11.0 [facility] Comment on above: Performed By: #### C BC ####[facility] [address] [place], [place] [address]Tg. Antonella Medrano CBC W/DIFFon 03-16-2022 ABS IMM GRANS 0.1 10*3/uL Normal 0.0-0.2 [facility] Comment on above: Performed By: #### 1 69, 37903 #### [facility] [address] [place] [address], [facility] ABS NEUTROPHILS 4.3 10*3/uL Normal 1.6-7.6 [facility] Comment on above: Performed By: #### 1 69, 26974 #### [facility] [address] [place] [address], [facility] Basophils (Bld) [#/Vol] 0.0 10*3/uL Normal 0.0-0.2 [facility] Comment on above: Performed By: #### 1 69, 06637 #### [facility] [address] [facility] [place] [address], [facility] Basophils/100 WBC (Bld) 0.3 % Normal 0.0-1.0 [facility] Comment on above: Performed By: #### 1 69, 03609 #### [facility] [address] [place] [address], [facility] Eosinophils (Bld) [#/Vol] 0.3 10*3/uL Normal 0.0-0.5 [facility] Comment on above: Performed By: #### 1 69, 84545 #### [facility] [address] [facility] [address], [facility] Eosinophils/100 WBC (Bld) 3.4 % Normal 0.0-6.0 [facility] Comment on above: Performed By: #### 1 69, 28366 #### [facility] [address] [place] [address], [facility] Erythrocyte distribution width (RBC) [Ratio] 13.5 % Normal 11.5-15.0 [facility] Comment on above: Performed By: #### 1 69, 67161 #### [facility] [address] [place] [address], [facility] Hematocrit (Bld) [Volume fraction] 46.2 % High 36.0-45.0 [facility] Comment on above: Performed By: #### 1 69, 87655 #### [facility] [address] [place] [address], [facility] Hemoglobin (Bld) [Mass/Vol] 15.3 g/dL High 12.0-15.0 [facility] Comment on above: Performed By: #### 1 69, #### [facility] [address] [place] [address], [facility] IMMATURE GRANS 0.9 % Normal 0.0-1.0 [facility] Comment on above: Performed By: #### 1 69, 86691 #### [facility] [address] [facility] [place] [address], [facility] Lymphocytes (Bld) [#/Vol] 2.2 10*3/uL Normal 1.2-4.0 [facility] Comment on above: Performed By: #### 1 69, 96463 #### [facility] [address] [place] [address], [facility] Lymphocytes/100 WBC (Bld) 29.1 % Normal 20.0-45.0 [facility] Comment on above: Performed By: #### 1 69, 84057 #### [facility] [address] [place] [id number], [facility] MCH (RBC) [Entitic mass] 28.4 pg Normal 27.0-33.0 [facility] Comment on above: Performed By: #### 1 69, 23885 #### [facility] [address] [facility] [place] [address], [facility] MCHC (RBC) [Mass/Vol] 33.1 g/dL Normal 32.0-35.0 [facility] Comment on above: Performed By: #### 1 69, 33795 #### [facility] [address] [facility] [place] [address], [facility] MCV (RBC) [Entitic vol] 85.9 fL Normal 82.0-98.0 [facility] Comment on above: Performed By: #### 1 69, 38325 #### [facility] [address] [place] [address], [facility] Monocytes (Bld) [#/Vol] 0.7 10*3/uL Normal 0.1-1.0 [facility] Comment on above: Performed By: #### 1 69, 46933 #### [facility] [address] [place] [address], [facility] MONOS 9.8 % Normal 5.0-12.0 [facility] Comment on above: Performed By: #### 1 69, [id number] #### [facility] [address] [place] [address], [facility] Neutrophils/100 WBC (Bld) 56.5 % Normal 40.0-72.0 [facility] Comment on above: Performed By: #### 1 69, 17546 #### [facility] [address] [place] [address], [facility] Nucleated RBC/100 WBC (Bld) [Ratio] 0 % Normal 0-0 [facility] Comment on above: Performed By: #### 1 69, 60489 #### [facility] [address] [place] [address], [facility] PLAT CNT 245 10*3/uL Normal 150-400 [facility] Comment on above: Performed By: #### 1 0070, 07900 #### [facility] [address] [place] [address], [facility] RBC (Bld) [#/Vol] 5.38 10*6/uL High 3.80-5.00 [facility] Comment on above: Performed By: #### 1 0070, 81145 #### [facility] [address] [place] [address], [facility] WBC (Bld) [#/Vol] 7.56 10*3/uL Normal 4.00-10.60 [facility] Comment on above: Performed By: #### 1 0070, 77640 #### [facility] [address] CULTURE URINEon 03-16-2022 CULTURE URINE Culture Observations : MODERATE GROWTH OF MIXED GENITAL LUCY. NO POTENTIAL PATHOGENS SEEN. Normal [facility] Comment on above: Performed By: #### U RCX ####[facility] Hng[address]qqybw07[address] [place], [place] [address]Qm. Antonella Mitchell Covid-19 PCR (CVDTB)on 02-22 SARS-CoV-2 (COVID-19) RNA TAISHA+probe Ql (Unsp spec) Not detected Normal NOT DETECTED [facility] Comment on above: Result Comment: When [...] for this test is supported by the [employer] of Health and Human Service's declaration that [...] be used). Performed By: #### C VDTB ####[facility] Wrhasshsdf[address] [place], [place] [address]Dr. Antonella Medrano ER URINE PROFILEon 2 Bilirubin Ql (U) Negative Normal NEGATIVE [facility] Comment on above: Performed By: #### LATA CLARKRO ####[facility] Dzscrzlyyy[address] [place], [place] [address]Dr. Antonella Medrano Clarity (U) CLEAR Normal CLEAR [facility] Comment on above: Performed By: #### LATA CLARKRO ####[facility] Kehhkzutii[address] [place], [place] [address]Dr. Antonella Medrano Color (U) LT. YELLOW Normal YELLOW [facility] Comment on above: Performed By: #### LATA CLARKRO ####[facility] Khdpvtkmwa[address] [place], [place] [address]Dr. Antonella Medrano ERUAHD A micrscopic examina tion will be performed if indicated. Normal [facility] Comment on above: Performed By: #### LATA CLARKRO ####[facility] Fftjzkropx[address] [place], [place] [address]Dr. Antonella Medrano Glucose Ql (U) >1000 Abnormal NEGATIVE [facility] Comment on above: Performed By: #### LATA CLARKRO ####[facility] Rszmokzdqk[address] [place], [place] [address]Dr. Antonella Medrano Hemoglobin Ql (U) TRACE-INTACT Abnormal NEGATIVE [facility] Comment on above: Performed By: #### LATA CLARKRO ####[facility] Zvyafcwxhv[address] [place], [place] [address]Dr. Antonella Medrano Ketones Ql (U) Negative Normal NEGATIVE [facility] Comment on above: Performed By: #### LATA CLARKRO ####[facility] Aizjorzryq4[address] [place], [place] [address]Dr. Antonella Medrano LEUKOCYTES Negative Normal NEGATIVE [facility] Comment on above: Performed By: #### LATA CLARKRO ####[facility] [address]ironx[address]ou[address] [place] [address]Dr. Antonella Medrano Nitrite Ql (U) Negative Normal NEGATIVE [facility] Comment on above: Performed By: #### LATA CLARKRO ####[facility] Ctamnirdty23[address] [place] [address]Dr. Antonella Medrano pH (U) 6.0 [pH] Normal 5-9 [facility] Comment on above: Performed By: #### LATA CLARKRO ####[facility] Psbebaovfu6639 [place] [address]Dr. Antonella Medrano SPEC GRAVITY 1.010 Normal 1.005-<=1.0 25 [facility] Comment on above: Performed By: #### LATA CLARKRO ####[facility] Mhodpfcjvj8[address] [place] [address]Dr. Antonella Medrano UA PROTEIN TRACE Normal NEGATIVE/ TRACE [facility] Comment on above: Performed By: #### LATA CLARKRO ####[facility] Uwmgxwluqh0518 [place] [address]Dr. Antonella Medrano UR MICRO IND INDICATED Normal [facility] Comment on above: Performed By: #### LATA CLARKRO ####[facility] Trmwlygccf4052 [place] [address]Dr. Antonella Medrano Urobilinogen Qn (U) 0.2 {Oleg'U}/dL Normal 0.2 - 1. 0 [facility] Comment on above: Performed By: #### LATA CLARKRO ####[facility] Tpyvojpyaj[address] [place] [address]Dr. Antonella Medrano POC GLUCOSE LABon 03-16-2022 Glucose [Mass/Vol] 337 mg/dL High 70-100 [facility] Comment on above: Performed By: #### 8 5499 #### [facility] [address] [facility] [place] [address], [facility] Glucose [Mass/Vol] 288 mg/dL High 70-100 [facility] Comment on above: Performed By: #### 1 0070, 29483 #### [facility] [address] [place] [address], [facility] Glucose [Mass/Vol] 197 mg/dL High 70-100 [facility] Comment on above: Performed By: #### 1 0070, 79861 #### [facility] [address] [place], [place] [address] [place] [address] POC SARS COV2 ANTIGEN NEGATI VEon 03-16-2022 POC SARS COV2 ANTIGEN NEG Negative Normal NEGATIVE [facility] Comment on above: Result Comment: Nega [...] antigen from SARS-CoV-2 in direct nasopharyngeal swab (CLIENT SOLUTIONS SPECIALIST) specimens from individuals who are suspected of [...] Accreditation. Performed By: #### 8 5499 #### [facility] [address] [place] [address], [facility] POINT OF CARE GLUCOSEon 02-22 Glucose [Mass/Vol] 343 mg/dL Critically high 74-[address] [facility] Comment on above: Performed By: #### P OCGLUC ####[facility] Dzmgpurexm7[address] [place] [address]Dr. Antonella Medrano Glucose [Mass/Vol] 516 mg/dL Critically high 74-106 T [facility] Comment on above: Result Comment: Resu lt Not Confirmed Performed By: #### P OCGLUC ####[facility] Qsgocutumg4420 [place] [address]Dr. Antonella Medrano PROF CHEM 8 (BAS METB)on Anion gap [Moles/Vol] 10.9 mmol/L Normal [facility] Comment on above: Performed By: #### B MARLEY, CMADM ####[facility] W[address]ctjzlge2846 [place] [address]Dr. Antonella Medrano Calcium [Mass/Vol] 8.9 mg/dL Normal 8.5-10.1 [facility] Comment on above: Performed By: #### B MARLEY, CMADM ####[facility] Opbglryuar[address] [place], [place] [address]Dr. Antonella Medrano Chloride [Moles/Vol] 99 mmol/L Normal 98-107 [facility] Comment on above: Performed By: #### B MARLEY, CMADM ####[facility] Fuhwtlgksw[address] [place], [place] [address]Dr. Antonella Medrano CO2 [Moles/Vol] 29.1 mmol/L Normal 21.0-32.0 [facility] Comment on above: Performed By: #### B MARLEY, CMADM ####[facility] Jotsjstqzq[address] [place], [place] [address]Dr. Antonella Medrano Creatinine [Mass/Vol] 1.05 mg/dL Critically high 0.55-1.02 [facility] Comment on above: Performed By: #### B MARLEY, CMADM ####[facility] Tnlvuialjp12[address] [place], [place] [address]Dr. Antonella Medrano EGFR-AF GUATEMALAN >60 Normal >=60 [facility] Comment on above: Performed By: #### B MARLEY, CMADM ####[facility] Vpbjidjbgu[address] [place], [place] [address]Dr. Antonella Medrano EGFR-NON AF GUATEMALAN 53 mL/min/1.73m2 Critically low >=60 [facility] Comment on above: Performed By: #### B MARLEY, EMMANEUL ####[facility] Juduyiatga[address]84 [place] [address]Dr. Antonella Medrano Glucose [Mass/Vol] 466 mg/dL Critically high 74-106 T [facility] Comment on above: Performed By: #### B MARLEY, EMMANUEL ####[facility] Pywxjdnpgd7986 [place] [address]Dr. Antonella Medrano Potassium [Moles/Vol] 4.0 mmol/L Normal 3.5-5.1 [facility] Comment on above: Performed By: #### B MARLEY, EMMANUEL ####[facility] Duldwlwzrm[address] [place], [place] [address]Dr. Antonella Medrano Sodium [Moles/Vol] 135 mmol/L Critically low 136-145 Th [facility] Comment on above: Performed By: #### B MARLEY, EMMANUEL ####[facility] Ermqewgqwd[address] [place], [place] [address]Dr. Antonella Medrano Urea nitrogen [Mass/Vol] 16.0 mg/dL Normal 7.0-18.0 [facility] Comment on above: Performed By: #### B EMMANUEL ROACH ####[facility] [address]toyqxbghn[address] [place], [place] [address]Dr. Antonella Medrano Urea nitrogen/Creatinine [Mass ratio] 15.2 mg/mg Normal [facility] Comment on above: Performed By: #### B EMMANUEL ROACH ####[facility] Zwpczzpuvw[address] [place], [place] [address]Dr. Antonella Medrano TROPONIN-Ion 03-16-2022 Troponin I.cardiac [Mass/Vol] 0.07 ng/mL High 0.00-0.04 [facility] Comment on above: Order Comment: No: D o not add to previous draw Result Comment: REFE RENCE RANGES: 0.00 - 0.04 ng/ml NORMAL 0.05 - 0.50 ng/ml INDETERMINATE > 0.50 ng/ml CONSISTENT WITH AN M.I. Performed By: #### 3 5200 #### [facility] [address] [place] [address], [facility] Troponin I.cardiac [Mass/Vol] 0.08 ng/mL High 0.00-0.04 [facility] Comment on above: Order Comment: No: D o not add to previous draw Result Comment: REFE RENCE RANGES: 0.00 - 0.04 ng/ml NORMAL 0.05 - 0.50 ng/ml INDETERMINATE > 0.50 ng/ml CONSISTENT WITH AN M.I. Performed By: #### 8 5499 #### [facility] [address] [place] [address], [facility] URINE MICROSCOPIC ONLYon BACTERIA TRACE Abnormal NONE SEEN [facility] Comment on above: Performed By: #### HALEY CLARK ####[facility] Skqdbqytjy[address] [place] [address]Dr. Antonella Medrano Bacteria identified Cx Nom (U) INDICATED Normal [facility] Comment on above: Performed By: #### LATA CLARKRO ####[facility] R[address]swyplbu[address] [place] [address]Dr. Antonella Medrano CAST NONE SEEN Normal NONE SEEN [facility] Comment on above: Performed By: #### LATA CLARKRO ####[facility] Ywnnyokxti27[address] [place] [address]Dr. Antonella Medrano Crystals LM Nom (Urine sed) NONE SEEN Normal NONE SEEN [facility] Comment on above: Performed By: #### LATA CLARKRO ####[facility] Lksoknqhog1506 [place] [address]Dr. Antonella Medrano Epithelial cells LM Ql (Urine sed) FEW Abnormal NONE SEEN /RARE [facility] Comment on above: Performed By: #### LATA CLARKRO ####[facility] Nadehdlmkh9186 [place] [address]Dr. Marialan Medrano MUCOUS NONE SEEN Normal NONE SEEN [facility] Comment on above: Performed By: #### LATA CLARKRO ####[facility] Xhabfcsovo6716 [place] [address]Dr. Antonella Medrano RBC 5-10 Abnormal 0-2 [facility] Comment on above: Performed By: #### HALEY CLARK ####[facility] Ngaxwijpbp0345 [place] [address]Dr. Antonella Medrano WBC 10-20 Abnormal NONE SEEN [facility] Comment on above: Performed By: #### HALEY CLARK ####[facility] Iletuowdja2649 [place] [address]Dr. Antonella Medrano XR CHEST 1 Von 03-16-2022 XR CHEST 1 V Normal [facility] CBC AUTO DIFFon 02-17-2022 BASO # 0.0 103/ul Normal 0.0-0.1 [facility] Comment on above: Performed By: #### C BC ####[facility] Xuzcdrloji[address] [place], [place] [address]Dr. Antonella Medrano Basophils/100 WBC (Bld) 0.4 % Normal 0.2-2.0 [facility] Comment on above: Performed By: #### C BC ####[facility] Iewcdhomno[address] [place], [place] [address]Dr. Antonella Medrano EO # 0.2 103/ul Normal 0.0-0.7 [facility] Comment on above: Performed By: #### C BC ####[facility] Iygqkhvfno[address] [place], [place] [address]Dr. Mariafilemon Medrano Eosinophils/100 WBC (Bld) 2.8 % Normal 0.9-7.0 [facility] Comment on above: Performed By: #### C BC ####[facility] Yurltminoo9[address] [place], [place] [address]Dr. Mariafilemon Medrano Erythrocyte distribution width (RBC) [Ratio] 12.5 % Normal 11.0-15.0 [facility] Comment on above: Performed By: #### C BC ####[facility] Eqbpuwuwja[address] [place], [place] [address]Dr. Mariafilemon Medrano Hematocrit (Bld) [Volume fraction] 45.7 % Normal 36.0-48.0 [facility] Comment on above: Performed By: #### C BC ####[facility] Hzkniuqmqj1693 [place] [address]Dr. Antonella Medrano Hemoglobin (Bld) [Mass/Vol] 15.1 g/dL Normal 12.0-16.0 [facility] Comment on above: Performed By: #### C BC ####[facility] Xxplmsdmub1487 [place] [address]Dr. Antonella Medrano IG # 0.04 10e3/ul Critically high 0.00-0.03 [facility] Comment on above: Performed By: #### C BC ####[facility] Xbvwqtvluq7875 [place] [address]Dr. Antonella Medrano IG % 0.5 % Normal 0.0-0.5 [facility] Comment on above: Performed By: #### C BC ####[facility] Ehowdwhzcd[address] [place], [place] [address]Dr. Mariafilemon Mitchell LYMPH # 2.3 103/ul Normal 1.2-3.8 [facility] Comment on above: Performed By: #### C BC ####[facility] Qujyppdgvi4[address] [place], [place] [address]Dr. Antonella Medrano Lymphocytes/100 WBC (Bld) 26.7 % Normal 20.5-60.0 [facility] Comment on above: Performed By: #### C BC ####[facility] Xsfrplxnct[address] [place], [place] [address]Dr. Antonella Medrano MANUAL DIFF REQ NO Normal [facility] Comment on above: Performed By: #### C BC ####[facility] Gfhkpgbras[address] [place], [place] [address]Dr. Antonella Medrano MCH (RBC) [Entitic mass] 28.4 pg Normal 26.7-34.0 [facility] Comment on above: Performed By: #### C BC ####[facility] W[address]igkergtt[address] [place], [place] [address]Dr. Antonella Medrano MCHC (RBC) [Mass/Vol] 33.0 g/dL Normal 29.9-35.2 [facility] Comment on above: Performed By: #### C BC ####[facility] Wmgpdirswb3060 [place] [id number]. Antonella Medrano MCV (RBC) [Entitic vol] 86.1 fL Normal 81.0-99.0 [facility] Comment on above: Performed By: #### C BC ####[facility] Wakvdpjgua7[address] [place] [address]Dr. Antonella Medrano MONO # 0.7 103/ul Normal 0.3-0.8 [facility] Comment on above: Performed By: #### C BC ####[facility] Hzhvsfewjt2505 [place] [address]Dr. Antonella Medrano Monocytes/100 WBC (Bld) 7.8 % Normal 1.7-12.0 [facility] Comment on above: Performed By: #### C BC ####[facility] Imlymtgqvo6532 [place] [address]Dr. Antonella Medrano NEUT # 5.2 103/ul Normal 1.4-6.5 [facility] Comment on above: Performed By: #### C BC ####[facility] Xzphgqnqur5348 [place] [address]Dr. Antonella Medrano Neutrophils/100 WBC (Bld) 61.8 % Normal 43.0-75.0 [facility] Comment on above: Performed By: #### C BC ####[facility] Igbdsjwayr2297 [place] [address]Dr. Antonella Medrano Platelet mean volume (Bld) [Entitic vol] 11.8 fL Normal 9.5-13.5 [facility] Comment on above: Performed By: #### C BC ####[facility] Lrkzqmnrxt8307 [place] [id number]. Antonella Medrano PLT 203 103/ul Normal 150-450 [facility] Comment on above: Performed By: #### C BC ####[facility] Rxhonbmtqb[address] [place], [place] [address]Dr. Antonella Medrano RBC 5.31 106/ul Normal 4.20-5.40 [facility] Comment on above: Performed By: #### C BC ####[facility] Gnhsiqetkz[address] [place], [place] [address]Dr. Antonella Medrano WBC 8.4 103/ul Normal 4.0-11.0 [facility] Comment on above: Performed By: #### C BC ####[facility] Wilcfmxlhv1287 [place] [address]Dr. Antonella Medrano POINT OF CARE GLUCOSEon 01-22 Glucose [Mass/Vol] 363 mg/dL Critically high 74-[address] [facility] Comment on above: Performed By: #### P OCGLUC ####[facility] Urfmerucnw0456 [place] [address]Dr. Antonella Medrano Glucose [Mass/Vol] 288 mg/dL Critically high -[address] [facility] Comment on above: Performed By: #### P OCGLUC ####[facility] Lylvrqzdfz0989 [place] [address]Dr. Antonella Medrano PROF CHEM 8 (BAS METB)on Anion gap [Moles/Vol] 12.1 mmol/L Normal [facility] Comment on above: Performed By: #### B MP ####[facility] Uvvrkdiqxw4414 [place] [address]Dr. Antonella Medrano Calcium [Mass/Vol] 8.7 mg/dL Normal 8.5-10.1 [facility] Comment on above: Performed By: #### B MP ####[facility] Ektavvmtiu0285 [place] [address]Dr. Antonella Medrano Chloride [Moles/Vol] 104 mmol/L Normal 98-107 [facility] Comment on above: Performed By: #### B MP ####[facility] Diihqyqvvx4045 [place] [address]Dr. Mariafilemon Mitchell CO2 [Moles/Vol] 23.3 mmol/L Normal 21.0-32.0 [facility] Comment on above: Performed By: #### B MP ####[facility] Yzddmmxqmg0341 [place] [address]Dr. Antonella Medrano Creatinine [Mass/Vol] 0.79 mg/dL Normal 0.55-1.02 [facility] Comment on above: Performed By: #### B MP ####[facility] Ryznlbyuww8214 [place] [id number]. Antonella Medrano EGFR-AF GUATEMALAN >60 Normal >=60 [facility] Comment on above: Performed By: #### B MP ####[facility] Kvisdaiugo25[address] [place] [id number]. Antonella Medrano EGFR-NON AF GUATEMALAN >60 Normal >=60 [facility] Comment on above: Performed By: #### B MP ####[facility] Xrffaljukj2780 [place] [address]Dr. Antonella Medrano Glucose [Mass/Vol] 291 mg/dL Critically high 74-106 T [facility] Comment on above: Performed By: #### B MP ####[facility] Jfrdnmguol0710 [place] [address]Dr. Antonella Medrano Potassium [Moles/Vol] 4.4 mmol/L Normal 3.5-5.1 [facility] Comment on above: Performed By: #### B MP ####[facility] Elyeutiuyc5490 [place] [address]Dr. Antonella Medrano Sodium [Moles/Vol] 135 mmol/L Critically low 136-145 Th [facility] Comment on above: Performed By: #### B MP ####[facility] Uxgpzykrls0541 [place] [address]Dr. Antonella Medrano Urea nitrogen [Mass/Vol] 20.0 mg/dL Critically high 7.0-18.0 [facility] Comment on above: Performed By: #### B MP ####[facility] Nzxhyfsyaj7309 [place] [address]Dr. Antonella Medrano Urea nitrogen/Creatinine [Mass ratio] 25.3 mg/mg Normal [facility] Comment on above: Performed By: #### B MP ####[facility] Ywyyrevmyq9310 [place] [address]Dr. Antonella Medrano CBC AUTO DIFFon 02-16-2022 BASO # 0.0 103/ul Normal 0.0-0.1 [facility] Comment on above: Performed By: #### C BC ####[facility] Cimzrzcgqz0792 [place] [id number]. Antonella Medrano Basophils/100 WBC (Bld) 0.3 % Normal 0.2-2.0 [facility] Comment on above: Performed By: #### C BC ####[facility] Tfysuhrpdo9839 [place] [id number]. Antonella Medrano EO # 0.1 103/ul Normal 0.0-0.7 [facility] Comment on above: Performed By: #### C BC ####[facility] Kbppaikvxp[address] [place], [place] [address]Dr. Antonella Medrano Eosinophils/100 WBC (Bld) 1.2 % Normal 0.9-7.0 [facility] Comment on above: Performed By: #### C BC ####[facility] J[address]xbhedvud[address] [place], [place] [address]Dr. Antonella Medrano Erythrocyte distribution width (RBC) [Ratio] 12.5 % Normal 11.0-15.0 [facility] Comment on above: Performed By: #### C BC ####[facility] Qxwhlxoavk[address] [place], [place] [address]Dr. Antonella Medrano Hematocrit (Bld) [Volume fraction] 51.7 % Critically high 36.0-48.0 [facility] Comment on above: Performed By: #### C BC ####[facility] Xidtzpzwvp2747 [place] [id number]. Antonella Medrano Hemoglobin (Bld) [Mass/Vol] 17.2 g/dL Critically high 12.0-16.0 [facility] Comment on above: Performed By: #### C BC ####[facility] Ljeqhiwmkh2070 [place] [id number]. Atnonella Medrano IG # 0.08 10e3/ul Critically high 0.00-0.03 [facility] Comment on above: Performed By: #### C BC ####[facility] [address] [place], [place] [address]Dr. Antonella Medrano IG % 0.8 % Critically high 0.0-0.5 [facility] Comment on above: Performed By: #### C BC ####[facility] Gagkbkupgl0118 [place] [id number]. Antonella Medrano LYMPH # 2.3 103/ul Normal 1.2-3.8 [facility] Comment on above: Performed By: #### C BC ####[facility] Jrrmuasnkz5356 [place] [id number]. Antonella Medrano Lymphocytes/100 WBC (Bld) 22.1 % Normal 20.5-60.0 [facility] Comment on above: Performed By: #### C BC ####[facility] Nesjcfhaet3718 [place] [id number]. Antonella Medrano MANUAL DIFF REQ NO Normal [facility] Comment on above: Performed By: #### C BC ####[facility] Kqwwevtdzl9358 [place] [address]Dr. Antonella Medrano MCH (RBC) [Entitic mass] 28.5 pg Normal 26.7-34.0 [facility] Comment on above: Performed By: #### C BC ####[facility] Ckcvbmrxep7241 [place] [id number]. Antonella Medrano MCHC (RBC) [Mass/Vol] 33.3 g/dL Normal 29.9-35.2 [facility] Comment on above: Performed By: #### C BC ####[facility] Negwbeohix5858 [place] [id number]. Antonella Medrano MCV (RBC) [Entitic vol] 85.7 fL Normal 81.0-99.0 [facility] Comment on above: Performed By: #### C BC ####[facility] Oxstudloop6248 [place] [id number]. Antonella Medrano MONO # 0.9 103/ul Critically high 0.3-0.8 [facility] Comment on above: Performed By: #### C BC ####[facility] Quqcasbefp8127 [place] [id number]. Antonella Mitchell Monocytes/100 WBC (Bld) 8.5 % Normal 1.7-12.0 [facility] Comment on above: Performed By: #### C BC ####[facility] Uxfalehogh6454 [place] [id number]. Antonella Medrano NEUT # 7.0 103/ul Critically high 1.4-6.5 [facility] Comment on above: Performed By: #### C BC ####[facility] Ptfavsxafo3309 [place] [id number]. Antonella Medrano Neutrophils/100 WBC (Bld) 67.1 % Normal 43.0-75.0 [facility] Comment on above: Performed By: #### C BC ####[facility] Nliijhsksl9697 [place] [id number]. Antonella Medrano Platelet mean volume (Bld) [Entitic vol] 11.3 fL Normal 9.5-13.5 [facility] Comment on above: Performed By: #### C BC ####[facility] Fzletghncu4296 [place] [id number]. Antonella Medrano PLT 279 103/ul Normal 150-450 [facility] Comment on above: Performed By: #### C BC ####[facility] Qxuvbxrtik0662 [place] [id number]. Antonella Medrano RBC 6.03 106/ul Critically high 4.20-5.40 [facility] Comment on above: Performed By: #### C BC ####[facility] Ojcpkumfvw0790 [place] [id number]. Antonella Medrano WBC 10.4 103/ul Normal 4.0-11.0 [facility] Comment on above: Performed By: #### C BC ####[facility] [address] [place] [id number]. Antonella Medrano CT HEAD WO CONon 02-16-2022 CT HEAD WO CON Normal [facility] CULTURE URINEon 02-16-2022 CULTURE URINE Culture Observations : LIGHT GROWTH OF MIXED GENITAL LUCY. NO POTENTIAL PATHOGENS SEEN. Normal [facility] Comment on above: Performed By: #### U RCX ####[facility] [address] [place], [place] [id number]. Antonella Medrano Covid-19 PCR (CVDTBH)on 01-22 SARS-CoV-2 (COVID-19) RNA TAISHA+probe Ql (Unsp spec) Not detected Normal NOT DETECTED [facility] Comment on above: Result Comment: When [...] for this test is supported by the [employer] of [employer] and Human Service's declaration that [...] be used). Performed By: #### C VDTB ####[facility] Kiwccovkky[address] [place], [place] [address]Dr. Antonella Medrano ER URINE PROFILEon Bilirubin Ql (U) Negative Normal NEGATIVE [facility] Comment on above: Performed By: #### U MICRO, ERUR ####[facility] Ldxmwrkobm[address] [place], [place] [address]Dr. Antonella Medrano Clarity (U) CLEAR Normal CLEAR [facility] Comment on above: Performed By: #### U MICRO, ERUR ####[facility] Qomsyonjik[address] [place], [place] [address]Dr. Antonella Medrano Color (U) YELLOW Normal YELLOW [facility] Comment on above: Performed By: #### U MICRO, ERUR ####[facility] Pzyfoemzyk[address] [place], [place] [address]Dr. Antonella RAZOAHD A micrscopic examina tion will be performed if indicated. Normal [facility] Comment on above: Performed By: #### U MICRO, ERUR ####[facility] Bpeoxowmmk[address] [place], [place] [address]Dr. Antonella Medrano Glucose Ql (U) >1000 Abnormal NEGATIVE [facility] Comment on above: Performed By: #### U MICRO, ERUR ####[facility] Vxakboneno[address] [place], [place] [address]Dr. Antonella Medrano Hemoglobin Ql (U) SMALL Abnormal NEGATIVE [facility] Comment on above: Performed By: #### U MICRO, ERUR ####[facility] Twbxjagibt[address] [place], [place] [address]Dr. Antonella Medrano Ketones Ql (U) Negative Normal NEGATIVE [facility] Comment on above: Performed By: #### U MICRO, ERUR ####[facility] Nuuucmyxhi67[address] [place], [place] [address]Dr. Antonella Medrano LEUKOCYTES SMALL Abnormal NEGATIVE [facility] Comment on above: Performed By: #### U MICRO, ERUR ####[facility] Rjjkjxldfy64[address] [place], [place] [address]Dr. Antonella Medrano Nitrite Ql (U) Negative Normal NEGATIVE [facility] Comment on above: Performed By: #### U MICRO, ERUR ####[facility] Qpuwhetwwy36[address] [place], [place] [address]Dr. Antonella Medrano pH (U) 5.5 [pH] Normal 5-9 [facility] Comment on above: Performed By: #### U MICRO, ERUR ####[facility] Dknuhpdyao3[address] [place], [place] [address]Dr. Antonella Medrano Protein (U) [Mass/Vol] 100 mg/dL Abnormal NEGAT LAZ/ TRACE [facility] Comment on above: Performed By: #### U MICRO, ERUR ####[facility] Avsemcbfpi94[address] [place], [place] [address]Dr. Antonella Medrano SPEC GRAVITY 1.025 Normal 1.005-<=1.0 25 [facility] Comment on above: Performed By: #### U MICRO, ERUR ####[facility] Ezrgyiywtu64[address] [place], [place] [address]Dr. Antonella Medrano UR MICRO IND INDICATED Normal [facility] Comment on above: Performed By: #### U MICRO, ERUR ####[facility] [address] [place] [address]Dr. Antonella Medrano Urobilinogen Qn (U) 0.2 {Oleg'U}/dL Normal 0.2 - 1. 0 [facility] Comment on above: Performed By: #### U MICRO, ERUR ####[facility] [address]cswlu[address] [place] [address]Dr. Antonella Medrano LACTATE/LACTIC ACIDon 2021 Lactate [Moles/Vol] 1.2 mmol/L Normal 0.4-1.9 [facility] Comment on above: Performed By: #### L ACT ####[facility] [address]xe[address]ub[address] [place] [address]Dr. Antonella Mitchell Lactate [Moles/Vol] 2.5 mmol/L Critically high 0.4-1.9 [facility] Comment on above: Performed By: #### L ACT ####[facility] Mw[address]yhygjl[address] [place], [place] [address]Dr. Mariafilemon Mitchell POINT OF CARE GLUCOSEon 01-22 Glucose [Mass/Vol] 308 mg/dL Critically high 74-[address] [facility] Comment on above: Performed By: #### P OCGLUC ####[facility] Byzwbrfbkp27[address] [place], [place] [address]Dr. Mariafilemon Mitchell Glucose [Mass/Vol] 356 mg/dL Critically high 74-[address] [facility] Comment on above: Performed By: #### P OCGLUC ####[facility] Kmrsxsvluo[address] [place], [place] [address]Dr. Antonella Medrano Glucose [Mass/Vol] 254 mg/dL Critically high 74-[address] [facility] Comment on above: Performed By: #### P OCGLUC ####[facility] Kxpzfdpnhw0[address] [place], [place] [address]Dr. Antonella Medrano Glucose [Mass/Vol] 103 mg/dL Normal 74-106 [facility] Comment on above: Performed By: #### P OCGLUC ####[facility] Hkyndlkjjy15[address] [place], [place] [address]Dr. Antonella Medrano PROF 14(COMP METB)on 022 Albumin [Mass/Vol] 3.0 g/dL Critically low 3.4-5.0 [facility] Comment on above: Performed By: #### C MP ####[facility] Jttjyskvsu[address] [place], [place] [address]Dr. Antonella Medrano Albumin/Globulin [Mass ratio] 0.8 {ratio} Normal [facility] Comment on above: Performed By: #### C MP ####[facility] Vdnpmvhzad[address] [place], [place] [address]Dr. Antonella Medrano ALP [Catalytic activity/Vol] 109 U/L Normal 46-116 [facility] Comment on above: Performed By: #### C MP ####[facility] Dshtkxdghp[address] [place], [place] [address]Dr. Antonella Medrano ALT [Catalytic activity/Vol] 18 U/L Normal 14-59 [facility] Comment on above: Performed By: #### C MP ####[facility] Olnfzreczm[address] [place], [place] [address]Dr. Antonella Medrano Anion gap [Moles/Vol] 14.5 mmol/L Normal [facility] Comment on above: Performed By: #### C MP ####[facility] Nuvqgqjqwy[address] [place], [place] [address]Dr. Antonella Medrano AST [Catalytic activity/Vol] 11 U/L Critically low 15-37 [facility] Comment on above: Performed By: #### C MP ####[facility] Jfpnseaain36[address] [place], [place] [address]Dr. Antonella Medrano Bilirubin [Mass/Vol] 0.3 mg/dL Normal 0.2-1.0 [facility] Comment on above: Performed By: #### C MP ####[facility] Sdcdqnqnri5394[address] [place], [place] [address]Dr. Antonella Medrano Calcium [Mass/Vol] 9.2 mg/dL Normal 8.5-10.1 [facility] Comment on above: Performed By: #### C MP ####[facility] Qifemwplds655[address] [place], [place] [address]Dr. Antonella Medrano Chloride [Moles/Vol] 99 mmol/L Normal 98-107 [facility] Comment on above: Performed By: #### C MP ####[facility] Xilhqypiii[address] [place], [place] [address]Dr. Antonella Medrano CO2 [Moles/Vol] 25.5 mmol/L Normal 21.0-32.0 [facility] Comment on above: Performed By: #### C MP ####[facility] Gxdbpmhfko0910[address] [place], [place] [address]Dr. Antonella Mitchell Creatinine [Mass/Vol] 1.57 mg/dL Critically high 0.55-1.02 [facility] Comment on above: Performed By: #### C MP ####[facility] Zqvnvfynca33[address] [place], [place] [address]Dr. Antonella Mitchell EGFR-AF GUATEMALAN 40 mL/min/1.73m2 Critically low >=60 [facility] Comment on above: Performed By: #### C MP ####[facility] Gcqmemuogc9[address] [place], [place] [address]Dr. Antonella Mitchell EGFR-NON AF GUATEMALAN 33 mL/min/1.73m2 Critically low >=60 [facility] Comment on above: Performed By: #### C MP ####[facility] Oinckhpzuf3[address] [place], [place] [address]Dr. Antonella Mitchell Globulin (S) [Mass/Vol] 3.9 g/dL Normal [facility] Comment on above: Performed By: #### C MP ####[facility] Iorgzmdurq7336[address] [place], [place] [address]Dr. Antonella Mitchell Glucose [Mass/Vol] 99 mg/dL Normal 74-106 [facility] Comment on above: Performed By: #### C MP ####[facility] Fwpxekmbdn4145[address] [place], [place] [address]Dr. Antonella Medrano Potassium [Moles/Vol] 4.0 mmol/L Normal 3.5-5.1 [facility] Comment on above: Performed By: #### C MP ####[facility] Wijxcxkhkd6[address] [place], [place] [address]Dr. Antonella Medrano Protein [Mass/Vol] 6.9 g/dL Normal 6.4-8.2 [facility] Comment on above: Performed By: #### C MP ####[facility] [address] [place] [address]Dr. Mariafilemon Medrano Sodium [Moles/Vol] 135 mmol/L Critically low 136-145 [facility] Comment on above: Performed By: #### C MP ####[facility] Uehipismwr22[address] [place], [place] [address]Dr. Mariafilemon Medrano Urea nitrogen [Mass/Vol] 35.0 mg/dL Critically high 7.0-18.0 [facility] Comment on above: Performed By: #### C MP ####[facility] Zfotkghjox9725[address] [place], [place] [address]Dr. Antonella Medrano Urea nitrogen/Creatinine [Mass ratio] 22.3 mg/mg Normal [facility] Comment on above: Performed By: #### C MP ####[facility] Yoteipuxxt[address] [place], [place] [address]Dr. Antonella Medrano URINE MICROSCOPIC ONLYon BACTERIA TRACE Abnormal NONE SEEN [facility] Comment on above: Performed By: #### U MICRO, ERUR ####[facility] Thccyxbyqq[address] [place], [place] [address]Dr. Antonella Medrano Bacteria identified Cx Nom (U) INDICATED Normal [facility] Comment on above: Performed By: #### U MICRO, ERUR ####[facility] Tuhsfrxfcx[address] [place], [place] [address]Dr. Antonella Medrano CAST SEEN Abnormal NONE SEEN [facility] Comment on above: Performed By: #### U MICRO, ERUR ####[facility] Tygpyotcco[address] [place], [place] [address]Dr. Antonella Medrano Crystals LM Nom (Urine sed) NONE SEEN Normal NONE SEEN [facility] Comment on above: Performed By: #### U MICRO, ERUR ####[facility] Q[address]kxehhcy[address] [place], [place] [address]Dr. Antonella Medrano Epithelial cells LM Ql (Urine sed) RARE Normal NONE SEEN /RARE [facility] Comment on above: Performed By: #### U MICRO, ERUR ####[facility] [address] [place], [place] [address]Tb. Antonella Medrano MUCOUS NONE SEEN Normal NONE SEEN [facility] Comment on above: Performed By: #### U MICRO, ERUR ####[facility] [address] [place], [place] [address]Jy. Antonella Medrano RBC 0-2 Normal 0-2 [facility] Comment on above: Performed By: #### U MICRO, ERUR ####[facility] [address]ux[address] [place], [place] [address]Mo. Antonella Medrano WBC 20-50 Abnormal NONE SEEN [facility] Comment on above: Performed By: #### U MICRO, ERUR ####[facility] [address] [place] [id number]. Antonella Medrano XR CHEST 1 Von 02-16-2022 XR CHEST 1 V Normal [facility] Complete Blood Counton 02-15 Erythrocyte distribution width (RBC) [Ratio] 12.4 % Normal 11.0-15.0 [facility] [employer] Comment on above: Performed By: #### C BC, CMP #### [facility] [address] [place], [place] [id number] Hematocrit (Bld) [Volume fraction] 50.9 % High 35.0-47.0 [facility] [employer] Comment on above: Performed By: #### C BC, CMP #### [facility] [address] [place], [place] [id number] Hemoglobin (Bld) [Mass/Vol] 17.2 g/dL High 11.6-15.5 [facility] [employer] Comment on above: Performed By: #### C BC, CMP #### [facility] [address] [place], [place] [id number] MCH (RBC) [Entitic mass] 28.6 pg Normal 27.0-33.0 [facility] [employer] Comment on above: Performed By: #### C BC, CMP #### [facility] [address] [place], [place] [id number] MCHC (RBC) [Mass/Vol] 33.8 g/dL Normal 32.0-36.0 [facility] Comment on above: Performed By: #### C BC, CMP #### [facility] [address] [place], [place] [id number] MCV (RBC) [Entitic vol] 85 fL Normal 80-[address] [facility] Special[facility] Comment on above: Performed By: #### C BC, CMP #### [facility] [address] [place], [place] [id number] Platelet mean volume (Bld) [Entitic vol] 11.60 fL Normal 7.50-12.[address] [facility] Comment on above: Performed By: #### C BC, CMP #### [facility] [address] [place], [place] [id number] Platelets (Bld) [#/Vol] 273 10*3/uL Normal 140-[address] [facility] Comment on above: Performed By: #### C BC, CMP #### [facility] [address] [place], [place] [id number] RBC (Bld) [#/Vol] 6.01 10*6/uL High 3.90-5.20 [facility] Specialist Comment on above: Performed By: #### C BC, CMP #### [facility] [address] [place], [place] [id number] RDW-SD 37.6 fL Normal 37.0-50.[address] [facility] Specialist Comment on above: Performed By: #### C BC, CMP #### [facility] [address] [place], [place] [id number] WBC (Bld) [#/Vol] 9.0 10*3/uL Normal 3.8-11.0 [facility] [employer] Account Manager Comment on above: Performed By: #### C BC, CMP #### [facility] [address] [place], [place] [id number] Comprehensive Metabolic Pane cedric 02-15-2022 Albumin [Mass/Vol] 3.9 g/dL Normal 3.6-5.1 [facility] [employer] Sales Account Manager Comment on above: Performed By: #### C BC, CMP #### [facility] [address] [place], [place] [id number] Albumin/Globulin [Mass ratio] 1.3 {ratio} Normal 1.0-2.5 [facility] Comment on above: Performed By: #### C BC, CMP #### [facility] [address] [place], [place] [id number] ALP [Catalytic activity/Vol] 141 U/L High 35-119 [facility] Comment on above: Performed By: #### C BC, CMP #### [facility] [address] [facility] [place] [id number] ALT [Catalytic activity/Vol] 11 U/L Normal 6-33 [facility] Comment on above: Result Comment: 08/23 Female reference range changed. Performed By: #### C BC, CMP #### [facility] [address] [place], [place] [id number] Anion gap [Moles/Vol] 19 mmol/L Normal 12-20 [facility] Comment on above: Result Comment: Effe ctive 09/28/2019 reference range changed. Performed By: #### C BC, CMP #### [facility] [address] [facility] [place], [place] [id number] AST [Catalytic activity/Vol] 12 U/L Normal 9-34 [facility] Comment on above: Performed By: #### C BC, CMP #### [facility] [address] [facility] [place], [place] [id number] Bilirubin [Mass/Vol] 0.32 mg/dL Normal 0.30-1.20 [facility] Comment on above: Performed By: #### C BC, CMP #### [facility] [address] [facility] [place], [place] [id number] BUN/CREA 23 Ratio High 6-22 [facility] Comment on above: Performed By: #### C BC, CMP #### [facility] [address] [place], [place] [id number] Calcium [Mass/Vol] 9.9 mg/dL Normal 8.6-10.2 [facility] Comment on above: Performed By: #### C BC, CMP #### [facility] [address] [place], [place] [id number] Chloride [Moles/Vol] 95 mmol/L Low 98-107 [facility] Comment on above: Performed By: #### C BC, CMP #### [facility] [address] [place], [place] [id number] CO2 [Moles/Vol] 21 mmol/L Normal 20-31 [facility] Comment on above: Performed By: #### C BC, CMP #### [facility] [address] [place], [place] [id number] Creatinine [Mass/Vol] 1.3 mg/dL Normal 0.6-1.4 [facility] Comment on above: Performed By: #### C BC, CMP #### [facility] [address] [place], [place] [id number] eGFRAA 51 mL/min/1.73m2 Low >[address] [facility] Specialist Comment on above: Performed By: #### C BC, CMP #### [facility] [address] [place], [place] [id number] eGFRNAA 42 mL/min/1.73m2 Low >[address] [facility] Specialist Comment on above: Performed By: #### C BC, CMP #### [facility] [address] [place], [place] [id number] Globulin (S) [Mass/Vol] 3.0 g/dL Normal 1.9-3.[address] [facility] Special[facility] Comment on above: Performed By: #### C BC, CMP #### [facility] [address] [place], [place] [id number] Glucose [Mass/Vol] 366 mg/dL High 65-99 [facility] Specialist Comment on above: Result Comment: For FASTING Glucose --- ADA reference ranges: Normal 65-99 mg/dl Prediabetes 100-125 Diabetes >/= 126 Performed By: #### C BC, CMP #### [facility] [address] [place], [place] [id number] Potassium [Moles/Vol] 4.7 mmol/L Normal 3.5-5.5 [facility] Comment on above: Performed By: #### C BC, CMP #### [facility] [address] [place], [place] [id number] Protein [Mass/Vol] 6.9 g/dL Normal 6.1-8.1 [facility] [employer] Sales Account Manager Comment on above: Performed By: #### C BC, CMP #### [facility] [address] [place], [place] [id number] Sodium [Moles/Vol] 131 mmol/L Low 135-146 [facility] Specialist Comment on above: Performed By: #### C BC, CMP #### [facility] [address] [place], [place] [id number] Urea nitrogen [Mass/Vol] 30 mg/dL High 7-[address] [facility] Specialist Comment on above: Performed By: #### C BC, CMP #### [facility] [address] [place], [place] [id number] CBC AUTO DIFFon 02-01-2022 BASO # 0.0 103/ul Normal 0.0-0.1 [facility] Comment on above: Performed By: #### C BC ####[facility] [address]ax[address] [place] [address]Dr. Antonella Medrano Basophils/100 WBC (Bld) 0.3 % Normal 0.2-2.0 [facility] Comment on above: Performed By: #### C BC ####[facility] Hb[address]dstjdw[address] [place] [address]Dr. Antonella Medrano EO # 0.2 103/ul Normal 0.0-0.7 [facility] Comment on above: Performed By: #### C BC ####[facility] Qcymizcccq[address] [place] [address]Dr. Antonella Medrano Eosinophils/100 WBC (Bld) 1.9 % Normal 0.9-7.0 [facility] Comment on above: Performed By: #### C BC ####[facility] [address]kaas[address] [place] [address]Dr. Antonella Medrano Erythrocyte distribution width (RBC) [Ratio] 12.6 % Normal 11.0-15.0 [facility] Comment on above: Performed By: #### C BC ####[facility] Mqcrwoxclj[address] [place], [place] [address]Dr. Antonella Medrano Hematocrit (Bld) [Volume fraction] 49.6 % Critically high 36.0-48.0 [facility] Comment on above: Performed By: #### C BC ####[facility] [address]ysfigc[address] [place] [id number]. Antonella Medrano Hemoglobin (Bld) [Mass/Vol] 16.6 g/dL Critically high 12.0-16.0 [facility] Comment on above: Performed By: #### C BC ####[facility] [address]fr[address]uv[address] [place] [address]Dr. Antonella Medrano IG # 0.04 10e3/ul Critically high 0.00-0.03 [facility] Comment on above: Performed By: #### C BC ####[facility] [address]vjai[address] [place] [address]Dr. Antonella Medrano IG % 0.4 % Normal 0.0-0.5 [facility] Comment on above: Performed By: #### C BC ####[facility] Y[address]wrtjtguk[address] [place], [place] [address]Dr. Antonella Medrano LYMPH # 2.4 103/ul Normal 1.2-3.8 [facility] Comment on above: Performed By: #### C BC ####[facility] [address]pxh[address] [place] [address]Dr. Antonella Medrano Lymphocytes/100 WBC (Bld) 25.9 % Normal 20.5-60.0 [facility] Comment on above: Performed By: #### C BC ####[facility] [address]ynklaztv[address] [place] [address]Dr. Antonella Medrano MANUAL DIFF REQ NO Normal [facility] Comment on above: Performed By: #### C BC ####[facility] [address]ud[address]qfj[address] [place], [place] [address]Dr. Antonella Medrano MCH (RBC) [Entitic mass] 28.7 pg Normal 26.7-34.0 [facility] Comment on above: Performed By: #### C BC ####[facility] [address]pp[address] [place], [place] [address]Dr. Antonella Medrano MCHC (RBC) [Mass/Vol] 33.5 g/dL Normal 29.9-35.2 [facility] Comment on above: Performed By: #### C BC ####[facility] [address]whq[address] [place] [id number]. Antonella Medrano MCV (RBC) [Entitic vol] 85.8 fL Normal 81.0-99.0 [facility] Comment on above: Performed By: #### C BC ####[facility] [address]uwyem[address] [place] [id number]. Antonella Medrano MONO # 0.7 103/ul Normal 0.3-0.8 [facility] Comment on above: Performed By: #### C BC ####[facility] Pnffnjjnro[address] [place], [place] [address]Dr. Antonella Medrano Monocytes/100 WBC (Bld) 7.9 % Normal 1.7-12.0 [facility] Comment on above: Performed By: #### C BC ####[facility] Xdpayvczhr[address] [place], [place] [address]Dr. Antonella Medrano NEUT # 5.8 103/ul Normal 1.4-6.5 [facility] Comment on above: Performed By: #### C BC ####[facility] Nmmdghbywg0[address] [place], [place] [address]Dr. Antonella Medrano Neutrophils/100 WBC (Bld) 63.6 % Normal 43.0-75.0 [facility] Comment on above: Performed By: #### C BC ####[facility] Ywgyaqttyf[address] [place], [place] [address]Dr. Antonella Medrano Platelet mean volume (Bld) [Entitic vol] 12.3 fL Normal 9.5-13.5 [facility] Comment on above: Performed By: #### C BC ####[facility] Qgkygpbape[address] [place], [place] [address]Dr. Antonella Medrano PLT 212 103/ul Normal 150-450 [facility] Comment on above: Performed By: #### C BC ####[facility] [address]eroaxrsgr[address] [place], [place] [address]Dr. Antonella Mitchell RBC 5.78 106/ul Critically high 4.20-5.40 [facility] Comment on above: Performed By: #### C BC ####[facility] [address]jnhb[address] [place] [address]Dr. Antonella Medrano WBC 9.1 103/ul Normal 4.0-11.0 [facility] Comment on above: Performed By: #### C BC ####[facility] I[address]ryvxih[address] [place] [address]Dr. Antonella Medrano CULTURE URINEon 02-01-2022 CULTURE URINE Culture Observations : LIGHT GROWTH OF MIXED SKIN LUCY. NO POTENTIAL PATHOGENS SEEN. Normal [facility] Comment on above: Performed By: #### U RCX ####[facility] [address]ycwiwym[address] [place] [address]Dr. Mariafilemon Medrano ER URINE PROFILEon Bilirubin Ql (U) Negative Normal NEGATIVE [facility] Comment on above: Performed By: #### HALEY CLARK ####[facility] Ngsztwakoi[address] [place], [place] [address]Dr. Antonella Medrano Clarity (U) CLEAR Normal CLEAR [facility] Comment on above: Performed By: #### HALEY CLARK ####[facility] [address]fhbjqooq[address] [place], [place] [address]Dr. Mariafilemon Mitchell Color (U) LT. YELLOW Normal YELLOW [facility] Comment on above: Performed By: #### HALEY CLARK ####[facility] [address]xwquim[address] [place], [place] [address]Dr. Antonella Medrano ERUAHD A micrscopic examina tion will be performed if indicated. Normal [facility] Comment on above: Performed By: #### HALEY CLARK ####[facility] [address]obvyvkhj[address] [place], [place] [address]Dr. Antonella Medrano Glucose Ql (U) 1000 mg/dl Abnormal NEGATIVE [facility] Comment on above: Performed By: #### HALEY CLARK ####[facility] [address]dowyyrlxs[address] [place], [place] [address]Dr. Antonella Medrano Hemoglobin Ql (U) SMALL Abnormal NEGATIVE [facility] Comment on above: Performed By: #### HALEY CLARK ####[facility] [address]dmjmi[address] [place] [address]Dr. Antonella Medrano Ketones Ql (U) Negative Normal NEGATIVE [facility] Comment on above: Performed By: #### HALEY CLARK ####[facility] [id number] [place] [address]Dr. Antonella Medrano LEUKOCYTES TRACE Abnormal NEGATIVE [facility] Comment on above: Performed By: #### HALEY CLARK ####[facility] [address]zu[address] [place], [place] [address]Dr. Antonella Medrano Nitrite Ql (U) Negative Normal NEGATIVE [facility] Comment on above: Performed By: #### HALEY CLARK ####[facility] Eioqtbnjdu[address] [place], [place] [address]Dr. Antonella Medrano pH (U) 5.5 [pH] Normal 5-9 [facility] Comment on above: Performed By: #### HALEY CLARK ####[facility] Yrefblxsed[address] [place], [place] [address]Dr. Antonella Medrano Protein (U) [Mass/Vol] 30 mg/dL Abnormal NEGAT LAZ/ TRACE [facility] Comment on above: Performed By: #### HALEY CLARK ####[facility] Ssfibetbsp[address] [place], [place] [address]Dr. Antonella Medrano SPEC GRAVITY 1.015 Normal 1.005-<=1.0 25 [facility] Comment on above: Performed By: #### HALEY CLARK ####[facility] Hlvpfkffm[address] [place], [place] [address]Dr. Antonella Medrano UR MICRO IND INDICATED Normal [facility] Comment on above: Performed By: #### HALEY CLARK ####[facility] Klhqtqxq[address] [place], [place] [address]Dr. Antonella Medrano Urobilinogen Qn (U) 0.2 {Oleg'U}/dL Normal 0.2 - 1. 0 [facility] Comment on above: Performed By: #### HALEY CLARK ####[facility] Pqwehviaam[address] [place] [address]Dr. Antonella Medrano POINT OF CARE GLUCOSEon 01-21 Glucose [Mass/Vol] 285 mg/dL Critically high 74-[address] [facility] Comment on above: Performed By: #### P OCGLUC ####[facility] Iinicnlxdc[address] [place] [address]Dr. Antonella Medrano Glucose [Mass/Vol] 352 mg/dL Critically high 74-[address] [facility] Comment on above: Performed By: #### P OCGLUC ####[facility] Ezcxwsnsqv79[address] [place] [address]Dr. Antonella Medrano Glucose [Mass/Vol] 503 mg/dL Critically high 74-[address] [facility] Comment on above: Result Comment: Resu lt Not Confirmed Performed By: #### P OCGLUC ####[facility] Nfpialazgl[address] [place] [address]Dr. Antonella Medrano PROF 14(COMP METB)on 022 Albumin [Mass/Vol] 3.2 g/dL Critically low 3.4-5.0 [facility] Comment on above: Performed By: #### C MP ####[facility] Qqemdfbrcl[address] [place], [place] [address]Dr. Antonella Medrano Albumin/Globulin [Mass ratio] 0.7 {ratio} Normal [facility] Comment on above: Performed By: #### C MP ####[facility] Uhbrfinkeg[address] [place] [address]Dr. Antonella Medrano ALP [Catalytic activity/Vol] 128 U/L Critically high 46-116 [facility] Comment on above: Performed By: #### C MP ####[facility] Jflzsutcri[address] [place] [address]Dr. Antonella Medrano ALT [Catalytic activity/Vol] 16 U/L Normal 14-59 [facility] Comment on above: Performed By: #### C MP ####[facility] Zxyicoeeja[address] [place] [address]Dr. Antonella Medrano Anion gap [Moles/Vol] 14.3 mmol/L Normal [facility] Comment on above: Performed By: #### C MP ####[facility] [address]uluuk[address] [place] [address]Dr. Antonella Medrano AST [Catalytic activity/Vol] 20 U/L Normal 15-37 [facility] Comment on above: Performed By: #### C MP ####[facility] Gstkjpvhqz[address] [place] [id number]. Antonella Medrano Bilirubin [Mass/Vol] 0.6 mg/dL Normal 0.2-1.0 [facility] Comment on above: Performed By: #### C MP ####[facility] Buqsiiyalg[address] [place], [place] [address]Dr. Antonella Medrano Calcium [Mass/Vol] 9.9 mg/dL Normal 8.5-10.1 [facility] Comment on above: Performed By: #### C MP ####[facility] Ckpwdyrkgq[address] [place], [place] [address]Dr. Antonella Medrano Chloride [Moles/Vol] 94 mmol/L Critically low 98-107 [facility] Comment on above: Performed By: #### C MP ####[facility] Aijwvuwoeh[address] [place], [place] [address]Dr. Antonella Medrano CO2 [Moles/Vol] 25.7 mmol/L Normal 21.0-32.0 [facility] Comment on above: Performed By: #### C MP ####[facility] H[address]ow[address]zt[address] [place], [place] [address]Dr. Antonella Medrano Creatinine [Mass/Vol] 1.00 mg/dL Normal 0.55-1.02 [facility] Comment on above: Performed By: #### C MP ####[facility] [address]iozrir[address] [place] [address]Dr. Antonella Medrano EGFR-AF GUATEMALAN >60 Normal >=60 [facility] Comment on above: Performed By: #### C MP ####[facility] Kknoekylvt[address] [place] [address]Dr. Antonella Medrano EGFR-NON AF GUATEMALAN 56 mL/min/1.73m2 Critically low >=60 [facility] Comment on above: Performed By: #### C MP ####[facility] [address]alemawoy[address] [place] [id number]. Antonella Medrano Globulin (S) [Mass/Vol] 4.4 g/dL Normal [facility] Comment on above: Performed By: #### C MP ####[facility] Xlnnqviajb[address] [place] [id number]. Antonella Medrano Glucose [Mass/Vol] 452 mg/dL Critically high 74-106 T [facility] Comment on above: Performed By: #### C MP ####[facility] Rydoljvwip364[address] [place] [id number]. Antonella Medrano Potassium [Moles/Vol] 5.0 mmol/L Normal 3.5-5.1 [facility] Comment on above: Performed By: #### C MP ####[facility] Hjxyulqomi[address] [place] [address]Dr. Antonella Medrano Protein [Mass/Vol] 7.6 g/dL Normal 6.4-8.2 [facility] Comment on above: Performed By: #### C MP ####[facility] Ukfltjvnoi8[address] [place] [id number]. Antonella Medrano Sodium [Moles/Vol] 129 mmol/L Critically low 136-145 Th [facility] Comment on above: Performed By: #### C MP ####[facility] Dsgtacaxqg6[address] [place] [address]Dr. Antonella Medrano Urea nitrogen [Mass/Vol] 45.0 mg/dL Critically high 7.0-18.0 [facility] Comment on above: Performed By: #### C MP ####[facility] Geanbrzjxv[address] [place] [id number]. Antonella Medrano Urea nitrogen/Creatinine [Mass ratio] 45.0 mg/mg Normal [facility] Comment on above: Performed By: #### C MP ####[facility] Kvjytbvunf[address] [place] [id number]. Antonella Medrano URINE MICROSCOPIC ONLYon BACTERIA SMALL Abnormal NONE SEEN [facility] Comment on above: Performed By: #### E HALEY LEE ####[facility] Gtvqtotswr[address] [place] [address]Dr. Antonella Medrano Bacteria identified Cx Nom (U) INDICATED Normal [facility] Comment on above: Performed By: #### LATA CLARKRO ####[facility] [address]blgoxt[address] [place] [address]Dr. Antonella Medrano CAST NONE SEEN Normal NONE SEEN [facility] Comment on above: Performed By: #### LATA CLARKRO ####[facility] Ladarhrbdk[address] [place] [address]Dr. Antonella Medrano Crystals LM Nom (Urine sed) NONE SEEN Normal NONE SEEN [facility] Comment on above: Performed By: #### LATA CLARKRO ####[facility] Yackhcldwl[address] [place] [address]Dr. Antonella Medrano Epithelial cells LM Ql (Urine sed) FEW Abnormal NONE SEEN /RARE [facility] Comment on above: Performed By: #### LATA CLARKRO ####[facility] Beyocgzdbe[address] [place] [address]Dr. Antonella Medrano MUCOUS NONE SEEN Normal NONE SEEN [facility] Comment on above: Performed By: #### LATA CLARKRO ####[facility] Rrakhieyuv[address] [place] [address]Dr. Antonella Medrano RBC 2-5 Abnormal 0-2 [facility] Comment on above: Performed By: #### LATA CLARKRO ####[facility] [address]kqsgbilbj[address] [place] [address]Dr. Antonella Medrano WBC 10-20 Abnormal NONE SEEN [facility] Comment on above: Performed By: #### ALTA CLARKRO ####[facility] Lwzhxgidbi[address] [place] [address]Dr. Antonella Medrano Amylaseon 01-30-2022 ANGY 62 U/L Normal 28-100 [facility] [employer] Comment on above: Performed By: #### A MY, LIP #### [facility] [address] [place], [place] [id number] Complete Blood Counton 01-30 Erythrocyte distribution width (RBC) [Ratio] 12.5 % Normal 11.0-15.[address] [facility] Specialist Comment on above: Performed By: #### C GEORGINA, CMP #### [facility] [address] [place], [place] [id number] Hematocrit (Bld) [Volume fraction] 51.5 % High 35.0-47.0 [facility] [employer] Comment on above: Performed By: #### C GEORGINA, CMP #### [facility] [address] [place], [place] [id number] Hemoglobin (Bld) [Mass/Vol] 17.4 g/dL High 11.6-15.[address] [facility] Comment on above: Performed By: #### C GEORGINA, CMP #### [facility] [address] [place], [place] [id number] MCH (RBC) [Entitic mass] 29.0 pg Normal 27.0-33.[address] [facility] Comment on above: Performed By: #### C GEORGINA, CMP #### [facility] [address] [place], [place] [id number] MCHC (RBC) [Mass/Vol] 33.8 g/dL Normal 32.0-36.0 [facility] Comment on above: Performed By: #### Francis ERICKSON, CMP #### [facility] [address] [place], [place] [id number] MCV (RBC) [Entitic vol] 86 fL Normal 80-[address] [facility] Special[facility] Comment on above: Performed By: #### Francis ERICKSON, CMP #### [facility] [address] [place], [place] [id number] Platelet mean volume (Bld) [Entitic vol] 12.50 fL Normal 7.50-12.50 [facility] [employer] Comment on above: Performed By: #### Francis ERICKSON, CMP #### [facility] [address] [place], [place] [id number] Platelets (Bld) [#/Vol] 227 10*3/uL Normal 140-400 [facility] [employer] [facility] Comment on above: Performed By: #### Francis ERICKSON, CMP #### [facility] [address] [place], [place] [id number] RBC (Bld) [#/Vol] 6.00 10*6/uL High 3.90-5.20 [facility] [employer] Sales Account Manager Comment on above: Performed By: #### C BC, CMP #### [facility] [address] [place], [place] [id number] RDW-SD 39.0 fL Normal 37.0-50.0 [facility] [employer] [facility] Comment on above: Performed By: #### C BC, CMP #### [facility] [address] [place], [place] [id number] WBC (Bld) [#/Vol] 9.0 10*3/uL Normal 3.8-11.0 [facility] [employer] Sales Account Manager Comment on above: Performed By: #### C BC, CMP #### [facility] [address] [place], [place] [id number] Comprehensive Metabolic Pane [facility] 01-30-2022 Albumin [Mass/Vol] 4.3 g/dL Normal 3.6-5.1 [facility] [employer] Sales Account Manager Comment on above: Performed By: #### C BC, CMP #### [facility] [address] [place], [place] [id number] Albumin/Globulin [Mass ratio] 1.5 {ratio} Normal 1.0-2.[address] [facility] Comment on above: Performed By: #### C BC, CMP #### [facility] [address] [place], [place] [id number] ALP [Catalytic activity/Vol] 148 U/L High 35-[address] [facility] Special[facility] Comment on above: Performed By: #### C BC, CMP #### [facility] [address] [place], [place] [id number] ALT [Catalytic activity/Vol] 7 U/L Normal 6-[address] [facility] Special[facility] Comment on above: Result Comment: 08/23 Female reference range changed. Performed By: #### C BC, CMP #### [facility] [address] [place], [place] [id number] Anion gap [Moles/Vol] 23 mmol/L High 12-20 [facility] Specialist Comment on above: Result Comment: Effe ctive 09/28/2019 reference range changed. Performed By: #### C BC, CMP #### [facility] [address] [place], [place] [id number] AST [Catalytic activity/Vol] 11 U/L Normal 9-34 [facility] Comment on above: Performed By: #### C BC, CMP #### [facility] [address] [place], [place] [id number] Bilirubin [Mass/Vol] 0.36 mg/dL Normal 0.30-1.20 [facility] Comment on above: Performed By: #### C BC, CMP #### [facility] [address] [place], [place] [id number] BUN/CREA 40 Ratio High 6-22 [facility] Comment on above: Performed By: #### C BC, CMP #### [facility] [address] [place], [place] [id number] Calcium [Mass/Vol] 10.0 mg/dL Normal 8.6-10.2 [facility] Comment on above: Performed By: #### C BC, CMP #### [facility] [address] [place], [place] [id number] Chloride [Moles/Vol] 92 mmol/L Low 98-107 [facility] Comment on above: Performed By: #### C BC, CMP #### [facility] [address] [place], [place] [id number] CO2 [Moles/Vol] 21 mmol/L Normal 20-31 [facility] Comment on above: Performed By: #### C BC, CMP #### [facility] [address] [place], [place] [id number] Creatinine [Mass/Vol] 0.9 mg/dL Normal 0.6-1.4 [facility] Comment on above: Performed By: #### C BC, CMP #### [facility] [address] [place], [place] [id number] eGFRAA 73 mL/min/1.73m2 Normal >60 [facility] Comment on above: Performed By: #### C BC, CMP #### [facility] [address] [place], [place] [id number] eGFRNAA 61 mL/min/1.73m2 Normal >[address] [facility] Specialist Comment on above: Performed By: #### C BC, CMP #### [facility] [address] [place], [place] [id number] Globulin (S) [Mass/Vol] 2.9 g/dL Normal 1.9-3.[address] [facility] Comment on above: Performed By: #### C BC, CMP #### [facility] [address] [place], [place] [id number] Glucose [Mass/Vol] 531 mg/dL Critically high 65-99 [facility] Comment on above: Result Comment: Crit ical result called to Abby Green at 01/30/2022 2:03 PM by Nicci Dailey (GLU) For FASTING Glucose --- ADA reference ranges: Normal 65-99 mg/dl Prediabetes 100-125 Diabetes >/= 126 Performed By: #### C BC, CMP #### [facility] [address] [place], [place] [id number] Potassium [Moles/Vol] 5.6 mmol/L High 3.5-5.5 [facility] Comment on above: Result Comment: Spec imen is hemolyzed. Results may be affected. Performed By: #### C BC, CMP #### [facility] [address] [place], [place] [id number] Protein [Mass/Vol] 7.2 g/dL Normal 6.1-8.1 [facility] Specialist Comment on above: Performed By: #### C BC, CMP #### [facility] [address] [place], [place] [id number] Sodium [Moles/Vol] 130 mmol/L Low 135-146 [facility] Agriculture Sales Account Manager Comment on above: Performed By: #### C BC, CMP #### [facility] [address] [place], [place] [id number] Urea nitrogen [Mass/Vol] 37 mg/dL High 7-[address] [facility] Specialist Comment on above: Performed By: #### C BC, CMP #### [facility] [address] [place], [place] [id number] Hemoglobin A1Con 01-30-[address] [facility] Specialist Comment on above: Performed By: #### A 1C #### [facility] [address] [place] [id number] HbA1c (Bld) [Mass fraction] 11.2 % High 4.0-6.0 [facility] [employer] Account Manager Comment on above: Performed By: #### A 1C #### [facility] [address] [place], [place] [id number] Lipaseon 01-30-2022 LIP2 147 IU/L High 13-60 [facility] [employer] Account [facility] Comment on above: Performed By: #### A MY, LIP #### [facility] [address] [place], [place] [id number] Q - URINALYSIS,COMPLETEon Appearance (U) CLOUDY Abnormal CLEAR [facility] Account [facility] Comment on above: Order Comment: [facility] performed at: [employer], [facility] [facility], [address] , [address] [place] [address], [address] [place] [address], Electric Tripper Machine Operator: Aung Boateng MD [facility] Date/Time: [facility] Results Received Date/Time: [facility] Reported Date/Time: Performed By: #### 3 4F #### [facility] Default [address] [place] [address] BACTERIA NONE SEEN Normal NONE SEEN [facility] [employer] [facility] Comment on above: Order Comment: [facility] performed at: [employer], [facility] [facility], [address] , [address] [place] [address], [address] [place] [address], [employer] Machine Operator: Aung Boateng MD [facility] Date/Time: [facility] Results Received Date/Time: [facility] Reported Date/Time: Performed By: #### 3 4F #### [facility] Default [address] [place] [address] Bilirubin Ql (U) Negative Normal NEGATIVE [facility] [employer] [facility] Comment on above: Order Comment: [facility] performed at: [employer], [facility], [address], [address] [place] [address], [id number], [employer] Operator: Aung Boateng MD [facility] Date/Time: [facility] Results Received Date/Time: [facility] Reported Date/Time: Performed By: #### 3 4F #### [facility] Default [address] [place] [address] Color (U) YELLOW Normal YELLOW [facility] [employer] [facility] Comment on above: Order Comment: [facility] performed at: [employer], [facility], [address] [place] [address], [address] [place] [address], [address] [place] [address], [employer] Machine Operator: Aung Boateng MD [facility] Date/Time: [facility] Results Received Date/Time: [facility] Reported Date/Time: Performed By: #### 3 4F #### [facility] Default [address] [place] [address] Glucose Ql (U) 3+ Abnormal NEGATIVE [facility] Specialist Comment on above: Order Comment: [facility] performed at: [employer], [facility], [address] [place] [address], [address] [place] [address], [address] [place] [address], Electric Tri[employer] Machine Operator: Aung Boateng MD [facility] Date/Time: [facility] Results Received Date/Time: [facility] Reported Date/Time: Performed By: #### 3 4F #### [facility] Default [address] [place] [address] HYALINE CAST NONE SEEN Normal NONE SEEN [facility] Comment on above: Order Comment: [facility] performed at: [employer], [facility], [address] [place] [address], [address] [place] [address], [address] [place] [address], [employer] Machine Operator: Aung Boateng MD [facility] Date/Time: [facility] Received Date/Time: [facility] Reported Date/Time: Performed By: #### 3 4F #### [facility] Default [address] [place] [address] Ketones Ql (U) TRACE Abnormal NEGATIVE [facility] Account [facility] Comment on above: Order Comment: [facility] performed at: [employer], [facility], [address] [place] [address], [address] [place] [address], [address] [place] [address], Electric [employer] Machine Operator: Aung Boateng MD [facility] Date/Time: [facility] Results Received Date/Time: [facility] Reported Date/Time: Performed By: #### 3 4F #### [facility] Default [address] [place] [address] Leukocyte esterase Test strip Ql (U) 1+ Abnormal NEGATIVE [facility] Specialist Comment on above: Order Comment: [facility] performed at: [employer], [facility], [address] , [address] [place] [address], [address] [place] [address], Electric [employer] Machine Operator: Aung Boateng MD [facility] Date/Time: [facility] Results Received Date/Time: [facility] Reported Date/Time: Performed By: #### 3 4F #### [facility] Default [address] [place] [address] Nitrite Ql (U) Negative Normal NEGATIVE [facility] Specialist Comment on above: Order Comment: [facility] performed at: [employer], [facility], [address] [facility], [address] [place] [address], [address] [place] [address], Electric [employer] Machine Operator: Aung Boateng MD [facility] Date/Time: [facility] Results Received Date/Time: [facility] Reported Date/Time: Performed By: #### 3 4F #### [facility] Default [address] [place] [address] OCCULT BLOOD 1+ Abnormal NEGATIVE [facility] Specialist Comment on above: Order Comment: [facility] performed at: [employer], [facility], [address] [facility], [address] [place] [address], [address] [place] [address], Electric [employer] Machine Operator: Aung Boateng MD [facility] Date/Time: [facility] Received Date/Time: [facility] Reported Date/Time: Performed By: #### 3 4F #### [facility] Default [address] [place] [address] pH (U) 5.5 [pH] Normal 5.0-8.0 [facility] [employer] Account Manager Comment on above: Order Comment: [facility] performed at: [facility], [facility] [facility], [address] [place] [address], [address] [place] [address], [address] [place] [address], Electric [employer] Machine Operator: Aung Boateng MD [facility] Date/Time: [facility] Received Date/Time: [facility] Reported Date/Time: Performed By: #### 3 4F #### [facility] [address] [place] [address] Protein Ql (U) 2+ Abnormal NEGATIVE [facility] [employer] Account Manager Comment on above: Order Comment: [facility] performed at: [facility], [facility], [address] [place] [address], [address] [place] [address], [address] [place] [address], Electric Tri[employer] Machine Operator: Aung Boateng MD [facility] Date/Time: [facility] Results Received Date/Time: [facility] Reported Date/Time: Performed By: #### 3 4F #### [facility] [address] [place] [address] RBC 0-2 Normal < OR = 2 [facility] Account Manager Comment on above: Order Comment: [facility] performed at: [facility], [facility], [address] [place] [address], [address] [place] [address], [address] [place] [address], Electric [employer] Machine Operator: Aung Boateng MD [facility] Date/Time: [facility] Results Received Date/Time: [facility] Reported Date/Time: Performed By: #### 3 4F #### [facility] Default [address] [place] [address] Specific gravity (U) [Rel density] 1.033 Normal 1.001-1.035 [facility] Account Manager Comment on above: Order Comment: [facility] performed at: [facility], [facility], [address] [place] [address], [address] [place] [address], [address] [place] [address], Electric [employer] Machine Operator: Aung Boateng MD [facility] Date/Time: [facility] Received Date/Time: [facility] Reported Date/Time: Performed By: #### 3 4F #### [facility] Default [address] [place] [address] SQUAMOUS EPITHELIAL CELLS NONE SEEN Normal < OR = 5 [facility] Account Manager Comment on above: Order Comment: [facility] performed at: [employer], [facility], [address] , [address] [place] [address], [address] [place] [address], [employer] Machine Operator: Aung Boateng MD [facility] Date/Time: [facility] Results Received Date/Time: [facility] Reported Date/Time: Performed By: #### 3 4F #### [facility] Default [address] [place] [address] TRANSITIONAL EPITHELIAL CELLS 0-5 Normal < OR = 5 [facility] [employer] Account Manager Comment on above: Order Comment: [facility] performed at: [employer], [facility], [address] , [address] [place] [address], [address] [place] [address], Electric [employer] Machine Operator: Aung Boateng MD [facility] Date/Time: [facility] Results Received Date/Time: [facility] Reported Date/Time: Performed By: #### 3 4F #### [facility] Default [address] [place] [address] WBC 10-20 Abnormal < OR = 5 [facility] Sales Account Manager Comment on above: Order Comment: [facility] performed at: [employer], [facility], [address] , [address] [place] [address], [address] [place] [address], Electric [employer] Machine Operator: Aung Boateng MD [facility] Date/Time: [facility] Results Received Date/Time: [facility] Reported Date/Time: Performed By: #### 3 4F #### [facility] Default [address] [place] [address] YEAST MANY Abnormal NONE SEEN [facility] Account Manager Comment on above: Order Comment: [facility] performed at: QPT, [facility], [address], [address] [facility], [place], [address], Electric Tripper Machine Operator: Aung Boateng MD [facility] Collection Date/Time: [id number] [facility] Results Received Date/Time: [id number] [facility] Reported Date/Time: [id number] Performed By: #### 3 4F #### [facility] Default [address] [place] [address] CONSULTATIONon 04-09-2017 CONSULTATION [facility] ATIENT NAME: KIARA BLANC : 57[facility] REC NO: [id number] ROOM: [id number] NO: [id number] ADMISSION DATE: 03/25/17PHYSICIAN: KAREN ROQUEHISTORY: The patient [...] office in two weeks.KAREN ROQUED:04/09/2017 21:50:05 PH/Aliza_MIKE_TJob#: [id number] Doc#: [id number] [facility] Discharge Summaryon 03-27-20 17 HIM IP Note OR Slot Manager [facility] HIM IP Note OR Slot Manager [facility] Discharge Summaryon 03-26-20 17 HIM IP Note OR Slot Manager [facility] History and Physicalon 03-26 HIM IP Note OR Slot Manager Normal [facility] APTTon 03-25-2017 aPTT 22.4 s Low 23.2-34.4 [facility] Comment on above: Result Comment: Perf ormed at [address] [place] [address] Performed By: #### P T, PTT ####[address] [place] [address] CBC with Diffon 03-25-2017 Abs. Bands 0.10 k/uL Normal 0.0-1.0 [facility] Comment on above: Performed By: #### C P, CDP ####[address] [place] [address] Abs. Basophil 0.00 k/uL Normal 0.0-0.2 [facility] Comment on above: Performed By: #### C P, CDP ####[address] [place] [id number] Abs.Neutrophil (Seg) 7.66 k/uL Normal 1.8-7.[address] [facility] Comment on above: Performed By: #### C P, CDP ####[address] [place] [address] Bands 1 % Normal [facility] Comment on above: Performed By: #### C P, CDP ####[address] [place] [address] Basophils/100 WBC Auto (Bld) 0 % Normal [facility] Comment on above: Performed By: #### C P, CDP ####[address] [place] [address] Blood morphology Normal Normal [facility] Comment on above: Result Comment: Perf ormed at [address] [place] [address] Performed By: #### C P, CDP ####[address] [place] [address] Eosinophils 0.10 10*3/uL Normal 0.0-0.4 [facility] Comment on above: Performed By: #### C P, CDP ####[address] [place] [id number] Eosinophils/100 leukocytes 1 % Normal [facility] Comment on above: Performed By: #### C P, CDP ####[address] [place] [address] Lymphocytes 1.16 10*3/uL Normal 1.0-4.8 [facility] Comment on above: Performed By: #### C P, CDP ####[address] [place] [address] Lymphocytes/100 leukocytes 12 % Normal [facility] Comment on above: Performed By: #### C P, CDP ####[address] [place] [address] Monocytes 0.68 10*3/uL Normal 0.0-1.0 [facility] Comment on above: Performed By: #### C P, CDP ####[address] [place] [id number] Monocytes/100 leukocytes 7 % Normal [facility] Comment on above: Performed By: #### C P, CDP ####[address] [place] [address] Neutrophil (Seg) 79 % Normal [facility] Comment on above: Performed By: #### C P, CDP ####[address] [place] [address] Erythrocyte distribution width Auto Ratio (RBC) 12.8 % Normal 12.1-15.2 [facility] Comment on above: Performed By: #### C P, CDP ####[address] [place] [address] Erythrocytes (RBC) 4.45 10*6/uL Normal 4.0-5.[address] [facility] Comment on above: Performed By: #### C P, CDP ####[address] [place] [address] Hematocrit (HCT) 38.7 % Normal 36-46 [facility] Comment on above: Performed By: #### C P, CDP ####[address] [place] [address] Hemoglobin mass conc (Bld) 13.0 g/dL Normal 12.0-16.0 [facility] Comment on above: Performed By: #### C P, CDP ####[address] [place] [address] MCH 29.2 pg Normal 26-34 [facility] Comment on above: Performed By: #### C P, CDP ####[address] [place] [address] MCHC mass conc (RBC) 33.6 g/dL Normal 31-[address] [facility] Comment on above: Performed By: #### C P, CDP ####[address] [place] [address] MCV 86.8 fL Normal 80-100 [facility] Comment on above: Performed By: #### C P, CDP ####[address] [place] [address] Platelets 239 10*3/uL Normal 140-450 [facility] Comment on above: Performed By: #### C P, CDP ####[address] [place] [address] WBC (Leukocytes) 9.7 10*3/uL Normal 3.5-11.0 [facility] Comment on above: Performed By: #### C P, CDP ####[address] [place] [address] Auto Diff Performed NOT REPORTED Normal [facility] Comment on above: Performed By: #### C P, CDP ####[address] [place] [address] Erythrocyte morphology NOT REPORTED Normal [facility] Comment on above: Performed By: #### C P, CDP ####[address] [place] [address] Platelet mean volume (PMV) NOT REPORTED Normal 6.0-12.0 [facility] Comment on above: Performed By: #### C P, CDP ####[address] [place] [address] Platelets NOT REPORTED Normal [facility] Comment on above: Performed By: #### C P, CDP ####[address] [place] [address] WBC Morphology NOT REPORTED Normal [facility] Comment on above: Performed By: #### C P, CDP ####[address] [place] [address] Comp Metabolic Profon 2016 (cont.) Normal [facility] Comment on above: Result Comment: Aver age GFR for 60-69 years old: 85 mL/min/1.73sq mChronic Kidney Disease: <60 mL/min/1.73sq mKidney failure: <15 mL/min/1.73sq meGFR calculated using average adult body mass. Additional eGFR calculator available at:[email or web address]_[email or web address].htm Performed By: #### C P, CDP ####[address] [place] [address] Alanine aminotransferase (ALT) 14 U/L Normal 5-33 [facility] Comment on above: Performed By: #### C P, CDP ####[address] [place] [address] Albumin 3.4 g/dL Low 3.5-5.2 [facility] Comment on above: Performed By: #### C P, CDP ####[address] [place] [address] Albumin/Globulin Ratio 1.2 {ratio} Normal 1.0-2.5 [facility] Comment on above: Performed By: #### C P, CDP ####[address] [place] [address] Alkaline Phos 102 U/L Normal 35-104 [facility] Comment on above: Performed By: #### C P, CDP ####[address] [place] [address] Anion gap 13 mmol/L Normal 9-17 [facility] Comment on above: Performed By: #### C P, CDP ####[address] [place] [address] Aspartate aminotransferase (AST) 14 U/L Normal <32 [facility] Comment on above: Performed By: #### C P, CDP ####[address] [place] [address] Bilirubin Ql (U) 0.15 mg/dL Low 0.3-1.2 [facility] Comment on above: Performed By: #### C P, CDP ####[address] [place] [address] BUN/CRE Ratio 34 High 9-20 [facility] Comment on above: Performed By: #### C P, CDP ####[address] [place] [address] Calcium 8.3 mg/dL Low 8.6-10.4 [facility] Comment on above: Performed By: #### C P, CDP ####[address] [place] [address] Chloride 108 mmol/L High 98-107 [facility] Comment on above: Performed By: #### C P, CDP ####[address] [place] [address] CO2 18 mmol/L Low 20-31 [facility] Comment on above: Performed By: #### C P, CDP ####[address] [place] [address] Creatinine 0.64 mg/dL Normal 0.50-0.90 [facility] Comment on above: Performed By: #### C P, CDP ####[address] [place] [address] eGFR (non-black) mL/min/{1.73_m2} Normal >60 [facility] Comment on above: Performed By: #### C P, CDP ####[address] [place] [address] Glucose mass conc 368 mg/dL High 70-99 [facility] Comment on above: Performed By: #### C P, CDP ####[address] [place] [address] Potassium molar conc 4.7 mmol/L Normal 3.7-5.[address] [facility] Comment on above: Performed By: #### C P, CDP ####[address] [place] [address] Protein 6.3 g/dL Low 6.4-8.3 [facility] Comment on above: Performed By: #### C P, CDP ####[address] [place] [address] Sodium 139 mmol/L Normal 135-144 [facility] Comment on above: Performed By: #### C P, CDP ####[address] [place] [address] Staging: Normal [facility] Comment on above: Result Comment: Stag e 1: Some kidney damage normal GFRStage 2: Mild kidney damage GFR 60-89Stage 3: Moderate kidney damage GFR 30-59Stage 4: Severe kidney damage GFR 15-29Stage 5: Severe kidney damage GFR <15ESRD - chronic treatment by dialysis or transplantPerformed at [address] [place] [id number] ([id number]) Performed By: #### C P, CDP ####[address] [place] [address] Urea nitrogen 22 mg/dL Normal 8-23 [facility] Comment on above: Performed By: #### C P, CDP ####[address] [place] [address] Hemoglobin A1Con 03-25-2017 Glucose mass conc 220 mg/dL Normal [facility] Comment on above: Result Comment: The ADA and AACC recommend providing the estimated average glucose result to permit better patient understanding of their HBA1c result.Performed at [address] [place] [address] Performed By: #### G LYHGB ####[address] [place] [address] Hemoglobin A1c/Hemoglobin.total mass fraction (Bld) 9.3 % High 4.8-5.9 [facility] Comment on above: Performed By: #### G LYHGB ####[address] [place] [address] PTon 03-25-2017 INR Coag RelTime (PPP) 0.9 {INR} Normal 0.9-1.2 [facility] Comment on above: Result Comment: Perf ormed at [address] [place] [id number] (281) Performed By: #### P T, PTT ####[address] [place] [address] Prothrombin time (PT) Coag time (PPP) 9.7 s Normal 9.7-12.2 [facility] Comment on above: Performed By: #### P T, PTT ####[address] , [place] [id number] Type + Screenon 03-25-2017 Type + Screen Sample Expiration 03/28/2017 Arm Band Number [id number] ABO/Rh(D) O POSITIVE Antibody Screen NEGATIVEPerformed at [facility] [address] [place] [address] Normal [facility] Comment on above: Performed By: #### T YS ####[address] [place] [address] XR CHEST PORTABLEon 03-25-20 17 XR CHEST PORTABLE FINAL REPORTEXAM: XR CHEST PORTABLEHISTORY: preoperative; RT HIP FX TECHNIQUE: AP portable erect chest PRIORS: None.FINDINGS: The heart and vascularity are normal. Both lungs are well-expanded and there are no pulmonary infiltrates.The osseous structures are maintained. IMPRESSION: Impression: No acute cardiopulmonary disease. Interpreted by:MAISHA Lassiterigned by:Peter Escobar MD03/25/17Final result Normal [facility] XR HIP 2-3 VW W PELVIS RIGHT [...] by:MAISHA Lassiterigned by:Peter Escobar MD03/25/17Final result Normal [facility] XR KNEE RIGHT STANDARDon XR KNEE RIGHT [...] by:MAISHA Lassiterigned by:Peter Escobar MD03/25/17Final result Normal [facility] Vital Signs Date Time Vital Sign Value Performing Clinician Faci lity 07-18-2023 14:41-0400 Body height 165.1 cm Sonya Posada CNP Work Phone: [facility] Work Phone: 07-18-2023 14:41-0400 Body mass index (BMI) [Ratio] 31.5 kg/m2 Sonya Carlomarlen JURADO Work Phone: [facility] Work Phone: 07-18-2023 14:41-0400 Body surface area Derived from formula 1.9 m2 Sonya Carlomarlen JURADO Work Phone: [facility] Work Phone: 07-18-2023 14:41-0400 Body temperature 97.9 [degF] Sonya Carlomarlen JURADO Work Phone: [facility] Work Phone: 07-18-2023 14:41-0400 Body weight 85.73 kg Sonya Posada BOBTAILER Work Phone: [facility] Work Phone: 07-18-2023 14:41-0400 Diastolic blood pressure 60 mm[Hg] Sonyajosee Posada ADRIEN Work Phone: [facility] Work Phone: 07-18-2023 14:41-0400 Heart rate 106 /min Sonya Carlo BOBTAILER Work Phone: [facility] Work Phone: 07-18-2023 14:41-0400 Respiratory rate 16 /min Sonya Carlo BOBTAILER Work Phone: [facility] Work Phone: 07-18-2023 14:41-0400 SaO2% (BldA) [Mass fraction] 92 % Sonya Carlo BOBTAILER Work Phone: [facility] Work Phone: 07-18-2023 14:41-0400 Systolic blood pressure 108 mm[Hg] Sonya Carlo BOBTAILER Work Phone: [facility] Work Phone: 03-11-2023 13:35-0400 Body temperature 97.11 [degF] Sonya Carlo POWER PROJECT MANAGER - CLIENT SOLUTIONS SPECIALIST Work Phone: [facility] [employer] 03-11-2023 13:35-0400 Diastolic blood pressure 60 mm[Hg] Sonya Carlo POWER PROJECT MANAGER - CLIENT SOLUTIONS SPECIALIST Work Phone: [employer] 03-11-2023 13:35-0400 Heart rate 92 /min Sonya Carlo POWER PROJECT MANAGER - CLIENT SOLUTIONS SPECIALIST Work Phone: [facility] [employer] 03-11-2023 13:35-0400 Respiratory rate 18 /min Sonya Carlo POWER PROJECT MANAGER - CLIENT SOLUTIONS SPECIALIST Work Phone: [facility] [employer] 03-11-2023 13:35-0400 SaO2% (BldA) [Mass fraction] 98 % Sonya Carlo POWER PROJECT MANAGER - CLIENT SOLUTIONS SPECIALIST Work Phone: [facility] 03-11-2023 13:35-0400 Systolic blood pressure 106 mm[Hg] Sonya Carlo POWER PROJECT MANAGER - CLIENT SOLUTIONS SPECIALIST Work Phone: [employer] 03-07-2023 15:37-0400 Body height 165.1 cm Sonya Posada BOBTAILER Work Phone: [facility] Work Phone: 03-07-2023 15:37-0400 Body mass index (BMI) [Ratio] 33.4 kg/m2 Sonya Posada CNP Work Phone: [facility] Work Phone: 03-07-2023 15:37-0400 Body surface area Derived from formula 2 m2 Sonya Posada CNP Work Phone: [facility] Work Phone: 03-07-2023 15:37-0400 Body temperature 98.5 [degF] Sonya Posada CNP Work Phone: [facility] Work Phone: 03-07-2023 15:37-0400 Body weight 91.17 kg Sonya Posada CNP Work Phone: [facility] Work Phone: 03-07-2023 15:37-0400 Diastolic blood pressure 55 mm[Hg] Sonya Posada CNP Work Phone: [facility] Work Phone: 03-07-2023 15:37-0400 Heart rate 64 /min Sonya Posada CNP Work Phone: [facility] Work Phone: 03-07-2023 15:37-0400 SaO2% (BldA) [Mass fraction] 96 % Sonya Posada CNP Work Phone: [facility] Work Phone: 03-07-2023 15:37-0400 Systolic blood pressure 115 mm[Hg] Sonya Posada CNP Work Phone: [facility] Work Phone: Encounters Encounter Date Encounter Type Care Provider Facility Start: 11-06-2023 End: 11-06-2023 ambulatory NON STAFF Facility:[facility] Start: 11-06-2023 End: 11-06-2023 ambulatory [facility] Work Phone: Start: 11-06-2023 End: 11-06-2023 Departed Referred [facility] Start: 06-12-2023 End: 06-12-2023 ambulatory [facility] Start: 05-14-2023 End: 05-14-2023 ambulatory PHYSICIAN NO FAMILY Facility:[facility] Start: 05-14-2023 End: 05-14-2023 ambulatory PRODUCTION SUPERVISOR OFF SHIFT-BC Angy Patel Work Phone: [facility] Work Phone: Start: 05-14-2023 End: 05-14-2023 Departed Referred PRODUCTION SUPERVISOR OFF SH[employer]BC Angy Patel Work Phone: [facility] Work Phone: Start: 05-04-2023 Evaluation and management of inpatient [facility] Start: 05-01-2023 Evaluation and management of inpatient [facility] Start: 04-26-2023 End: 05-06-2023 Evaluation and management of inpatient CHAND[facility] Start: 03-11-2023 End: 03-11-2023 Emergency department patient visit Sonya Posada POWER PROJECT MANAGER - CLIENT SOLUTIONS SPECIALIST Work Phone: [facility] ED Comment on above: Acute cystitis witho ut hematuria (Primary Dx) Start: 03-07-2023 End: 03-07-2023 [facility] visit, estab pt Sobia MALDONADO Work Phone: [facility] Work Phone: Start: 03-07-2023 End: 03-07-2023 [facility] visit new patient Sonya Posada BOBTAILER Work Phone: [facility] Work Phone: Start: 03-07-2023 End: 07-18-2023 [facility] visit, estab pt Soco Alcantar BOBTAILER Work Phone: [facility] Work Phone: Start: 03-07-2023 End: 03-08-2023 ambulatory SONYA POSADA [facility] Start: 01-22-2023 ambulatory Sonya Posada CNP [facility] Start: 01-10-2023 End: 01-10-2023 [...] encounter procedure Peter Santos -CT Scan [facility] Start: 03-25-2017 End: 03-27-2017 Evaluation and management of inpatient [facility] Procedures Date Procedure Procedure Detail Performing Clinician Start: 07-18-2023 Current tobacco smoker Soco Alcantar BOBTAILER Work Phone: Start: 07-18-2023 Eye img valid match dx 7 stnd fld w/evc rtnopthy Soco Alcantar BOBTAILER Work Phone: Start: 07-18-2023 Foot examination performed Soco Alcantar BOBTAILER Work Phone: Start: 07-18-2023 Hemoglobin glycosylated a1c Soco Alcantar CNP Work Phone: Start: 07-18-2023 Most recent diastoli c blood pressure < 80 mm hg Soco Alcantar BOBTAILER Work Phone: Start: 07-18-2023 Most recent hg a1c>e qual to 8.0%& Soco Alcantar CNP Work Phone: Start: 07-18-2023 Most recent systolic blood pressure <130 mm hg Soco Alcantar BOBTAILER Work Phone: Start: 07-18-2023 Pt scrnd tobacco [...] Start: 03-07-2023 Current tobacco smoker Sonya Posada BOBTAILER Work Phone: Start: 03-07-2023 Drug test prsmv read direct optical obs pr date Sonya Posada BOBTAILER Work Phone: Start: 03-07-2023 Hysterectomy Sonya gee BOBTAILER Work Phone: Start: 03-07-2023 Knee Replacement Left C sho Posada BOBTAILER Work Phone: Start: 03-07-2023 Knee Replacement Right Sonya Posada BOBTAILER Work Phone: Start: 03-07-2023 Psychotherapy w/lasha ent 30 minutes Sobia MALDONADO Work Phone: Start: 03-07-2023 Pt scrnd tobacco use rcvd tobacco cessation talk Sonya Posada BOBTAILER Work Phone: Start: 03-07-2023 Surgical procedure Hayley Posada BOBTAILER Work Phone: Start: 03-07-2023 Urine albumin quantitative Sonya Posada BOBTAILER Work Phone: Start: 03-07-2023 Urnls dip stick/tabl et rgnt non-auto w/o micrscp Sonya Posada BOBTAILER Work Phone: Start: 07-07-2019 CT chest wo [...] ON Start: 03-25-2017 CBC WITH AUTO DIFFERENTIAL CMAERON LAURENT Start: 03-25-2017 COMPREHENSIVE METABO LIC PANEL [...] (Diabetes, CKD 3-4, OR last GFR 15-59) [facility] Start: 08-19-2023 [facility] visit, estab pt Medical E stablished Patient [facility] Work Phone: Start: 07-18-2023 End: 07-18-2023 Patient education based on identified need [facility] Start: 04-06-2023 Urine Culture & Sensitivity (69358) [facility] Start: 03-21-2023 [facility] visit, estab pt Medical E stablished Patient [facility] Work Phone: Start: 03-08-2023 Annual Wellness Visi t (AWV) Annual Wellness Visit (AWV) [facility] [employer] Start: 03-07-2023 End: 03-07-2023 Patient education based on identified need [facility] Start: 03-07-2023 CBC W Auto Different ial panel - Blood [facility] Start: 03-07-2023 Lipid 1996 panel - S elizabeth or Plasma LIPID PROFILE [facility] Start: 10-31-2021 COVID-19 Vaccine (5 - Booster for Moderna series) COVID-19 Vaccine (5 - Booster for Moderna series) [facility] Start: 03-25-2018 Hemoglobin A1c measurement A1C test (Diabetic or Prediabetic) [facility] Start: 2011 Screening for osteoporosis DEXA (modify frequency per FRAX score) [facility] Start: 2006 Screening for malign ant neoplasm of breast Breast cancer screen [facility] Start: 2006 Shingles vaccine (1 of 2) Shingles vaccine (1 of 2) [facility] Start: 2001 Screening for malign ant neoplasm of colon [facility] Start: 1975 DTaP/Tdap/Td vaccine (1 - Tdap) DTaP/Tdap/Td vaccine (1 - Tdap) [facility] [employer] Start: 1974 Glaucoma screening Diabetic retinal exam [facility] Start: 1974 Hepatitis C screening Hepatitis C sc reen [facility] Start: 1974 Urine screening for protein Diabetic Alb to Cr ratio (uACR) test [facility] Start: 1968 Depression Monitoring Depression Mon itoring [facility] Start: 1966 Diabetic foot examination Diabetic foot exam [facility] Start: 1966 Lipid panel Lipids [facility] End: 03-11-2023 Culture, Urine [facility] Work Phone: Comment on above: Once for 1 Occurrenc es starting 03/11/2023 until 03/11/2023 Immunizations Immunization Date Immunization Notes Care Provider Valeria winston 01-02-2023 pneumococcal polysaccharide vaccine, 23 valent Sonya Carlo BOBTAILER Work Phone: [facility] 09-05-2021 1st Dose MODERNA COV ID-19 Vaccine Sonya Carlo BOBTAILER Work Phone: [facility] 08-08-2021 diphtheria, tetanus toxoids and pertussis vaccine Sonya Carlo BOBTAILER Work Phone: [facility] 08-07-2021 influenza, high dose seasonal, preservative-free Sonya Carlo BOBTAILER Work Phone: [facility] 01-01-2021 1st Dose MODERNA COV ID-19 Vaccine Sonya Carlo BOBTAILER Work Phone: [facility] 12-05-2020 1st Dose MODERNA COV ID-19 Vaccine Sonya Carlo BOBTAILER Work Phone: [facility] 08-30-2020 Seasonal, quadrivale nt, recombinant, injectable influenza vaccine, preservative free Sonya Carlo BOBTAILER Work Phone: [facility] 08-28-2019 influenza, injectabl e, quadrivalent, contains preservative Sonya Carlo BOBTAILER Work Phone: [facility] 09-20-2016 influenza, seasonal, injectable, preservative free Sonya Carlo BOBTAILER Work Phone: [facility] Payers Date Payer Category Payer Self-pay [id number] 2014 Medicare [id number] 2014 Medicare [id number] 1959 Self-pay [id number] 1959 Unknown [id number] 1956 Unknown [id number] 2.16.8 [id number] 1956 Unknown [id number] 2.16.84 [id number] 1956 Unknown [id number] 2.16.84 0.1.238578.3.579.2.593 1956 Unknown [id number] 2.16.84 0.1.264278.3.579.2.593 1956 Unknown [id number] 2.16.84 0.1.857566.3.579.2.593 1956 Unknown [id number] 2.16.84 0.1.127460.3.579.2.593 1956 Unknown [id number] 2.16.84 0.1.791992.3.579.2.593 1956 Unknown [id number] 2.16.84 0.1.313144.3.579.2.593 1956 Unknown [id number] 2.16.84 0.1.067770.3.579.2.593 1956 Unknown [id number] 2.16.84 0.1.916366.3.579.2.593 1956 Unknown [id number] 2.16.84 0.1.680942.3.579.2.593 1956 Unknown [id number] 2.16.84 0.1.397717.3.579.2.593 1956 Unknown [id number] 2.16.84 0.1.137117.3.579.2.593 1956 Unknown [id number] 2.16.84 0.1.967007.3.579.2.593 1956 Unknown [id number] 2.16. 840.1.654939.3.579.2.175 Medicare Medicare [id number] Private Health Insurance [facility] [id number] Unknown [id number] 2.16.8 40.1.483296.3.579.2.531 Unknown [id number] 2.16.8 40.1.377839.3.579.2.531 Social History Date Type Detail Facility Tobacco smoking status NHIS Unknown if ever smoked [facility] Start: 1955 Sex Assigned At Female F [facility] Assertion Lives with spous e (finding) [facility] Assertion Emotional stress (finding) [facility] Assertion Cigarette smoker (finding) [facility] Start: 09-04-2018 Assertion Smoker (finding) [facility] Assertion Exposure to poll ution (event) [facility] Tobacco smoking status Unknown if ever smoked [facility] Work Phone: Start: 03-25-2017 Tobacco smoking status NHIS Smokes tobacco daily [facility] Start: 03-25-2017 Cigarettes smoked current (pack per day) - Reported 0.5 BON [employer] Start: 03-11-2023 Alcohol intake Current non-dr devulcanizer charger of alcohol (finding) [facility] Start: 1955 Sex Assigned At Not on file B ON [employer] Assertion Gender identity finding (finding) [facility] Assertion Finding of sexua l orientation (finding) [facility] Assertion Currently not se xually active (finding) [facility] NEGATED: Highlighted row Assertion Current drinker of alcohol (finding) [facility] NEGATED: Highlighted row Assertion [facility] NEGATED: Highlighted row Assertion Finding relating to drug misuse behavior (finding) [facility] Medical Equipment Procedure Code Equipment Code Equipment Origin al Text Equipment Identifier Dates ReliOn Pen Needl es 31G X 6 MM Miscellaneous [id number] Start: 06-25-2023 Goals Date Patient Goal Desired Activity /State Mental Status Date Assessment Result Facility Cognitive function The estimated intelligence was normal Intelligence finding (finding) [facility] Work Phone: Clinical Notes 03-25-2022 to 07-18-2023 Note Date & Type Note Facility 07-18-2023 Instructions Includes: Instructions for all patient encounters Discussed nutritional needs teach healthy choices including fruits and vegetables Last Documented On 3 2:45PM ; [facility] Patient education about a pr oper diet Last Documented On 3 2:45PM ; [facility] Discussed concerns about exe rcise : promote physical activity Last Documented On 3 2:45PM ; [facility] Referred Patient to a Diabet es Self-Management Program Last Documented On 3 3:12PM ; [facility] introduced patient to [facility] integrated model of care. ~[facility] provided supportive and active listening, allowing patient the space to discuss concerns and explored with patient coping strategies and resources for support. Patient declines additional resources at this time but is aware to reach out to the office should she have questions or concerns. ~[facility] encouraged patient to continue addressing physical health needs and attend appointments as scheduled Last Documented On 3 9:52PM ; [facility] Discussed nutritional needs teach healthy choices including fruits and vegetables Last Documented On 3 3:42PM ; [facility] Patient education about a pr oper diet Last Documented On 3 3:42PM ; [facility] Discussed concerns about exe rcise : promote physical activity ~ ~Get labs done and follow up in two weeks Last Documented On 3 5:15AM ; [facility] Referred Patient to a Diabet es Self-Management Program Last Documented On 3 4:08PM ; [facility] Work Phone: 1(585) 471-129510-26-2023 Evaluation note Includes: Assessments for all patient encounters Findings Encounter Date [Z68.31 - Body mass index [B ID] 31.0-31.9, adult] assessment of body mass index Medical Established Patient with Soco Alcantar CNP 07/18/2023 Last Documented On 3 2:26PM ; [facility] Dependence on nicotine in ci garettes - uncomplicated Medical Established Patient with Soco Alcantar BOBTAILER 07/18/2023 Last Documented On 3 2:26PM ; [facility] Essential hypertension Medical Establish ed Patient with Soco Alcantar BOBTAILER 07/18/2023 Last Documented On 3 2:26PM ; [facility] Type 2 diabetes mellitus wit hout complication Medical Established Patient with Soco Alcantar BOBTAILER 07/18/2023 Last Documented On 3 2:26PM ; [facility] 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 Medical Established Patient with Soco Alcantar BOBTAILER 07/18/2023 Last Documented On 3 2:26PM ; [facility] Anxiety disorder NOS Established Patient with Sobia Short LISWS 03/07/2023 Last Documented On 3 9:52PM ; [facility] Dependence on nicotine in ci garettes - uncomplicated BH Established Patient with Sobia Short LISWS 03/07/2023 Last Documented On 3 9:52PM ; [facility] Mild recurrent major depression BH Estab lished Patient with Sobia Short LISWS 03/07/2023 Last Documented On 3 9:52PM ; [facility] [Body mass index [BMI] 33.0- 33.9, adult] assessment of body mass index Medical New Patient with Sonya Carlo BOBTAILER 03/07/2023 Last Documented On 3 7:51PM ; [facility] Colon screening Medical New Patient with Sonya Carlo BOBTAILER 03/07/2023 Last Documented On 3 7:51PM ; [facility] Diabetes Risk Test Score was 7.0 score 03/07/2023 Medical New Patient with Sonya Carlo BOBTAILER 03/07/2023 Last Documented On 3 7:51PM ; [facility] Screening for Hep C Medical New Patient with Ronnie sie Carlo BOBTAILER 03/07/2023 Last Documented On 3 7:51PM ; [facility] Screening for HIV Medical New Patient with Joselyn e Carlo BOBTAILER 03/07/2023 Last Documented On 3 7:51PM ; [facility] Work Phone: 1([phone]) 535-941110-26-2023 History general Narrative - Reported Includes: Medical History in patient's chart Description Last Updated Not planning to have a baby in the next 12 months 07/18/2023 Last Documented On 3 2:26PM ; [facility] History of tooth extraction 03/07/2023 Last Documented On 3 7:51PM ; [facility] No medical history or no significant his tory 03/07/2023 Last Documented On 3 7:51PM ; [facility] No previous hospitalizations 03/07/2023 Last Documented On 3 7:51PM ; [facility] Recent immunization for flu 03/07/2023 Last Documented On 3 7:51PM ; [facility] Work Phone: 1(729) 545-233710-26-2023 Progress note* Progress note Date Encounter Last Documented by 07/18/2023 Medical Established Patient Last documented on 07/19/2023; 2:26 PM, Soco Alcantar CNP; [facility] Active Problems & Conditions - F41.9 [...] For Visit Visit for: [facility] discharge from [facility] Referred Here Not referred by urgent care [...] reports that she was recently in a group home and was discharged about 2 weeks ago. Patient reports that she was admitted to the group home after a fall. Has not had any falls since being home. Patient reports that she is not sure how long she was in the group home, states she was in the hospital prior to the group home admission but only for a few days. Patient reports that she thinks she was a [facility]. Patient reports that she checks sugars [...] 0 days, 0 refills - ReliOn Pen [place] 31G X 6 MM Miscellaneous 31G X [...] 07/18/2023 02:41 pm BP-Sitting L108/60 mmHg Pulse Rate-Plihirs884 bpm Respiration Rate16 per min Temp-Eodwotof75.9 F Bdbkrv76 in Qpwovk833 lbs Body Mass Index31.5 kg/m2 Body Surface Area1.9 m2 Oxygen Xnykkrramc47 % Vital Signs: - Systolic blood pressure [...] mammogram ordered, will look for colonoscopy at [facility]. Patient to follow up in 1 [...] Bottom of Document [facility] Chief Complaint: Patient here for follow up NSTEMI. She denies chest pain, SOB, and palpitations. Gets a little lightheaded at times. She was discharged on Entresto and Farxiga but neither of them are on her medication list from the group home. HPI: Kiara Blanc is a 68 [...] 68 y.o. female who came from [facility] for NSTEMI. Patient was admittied initailly at [facility] with known history of CAD, HLD, [...] Disp: , Rfl: meto (more content not included)...[facility]08-14-2023 NotePhysical Therapy Physical Therapy Treatment Patient Name: Kiara Blanc : 1955 Today's Date: 05/06/2023 Patient Active Problem List Diagnosis Coronary artery disease involving [place] coronary artery of [place] lake heart without angina pectoris Hyperlipidemia, mixed Edema of lower extremity Chronic diastolic heart failure (CMS/HCC) Tobacco dependence NSTEMI (non-ST elevated myocardial infarction) (CMS/HCC) Acute cystitis without hematuria Hypoglycemia Traumatic rhabdomyolysis (CMS/HCC) Acute on chronic systolic (congestive) heart failure ([facility]) Time : 13:09-13:48 05/06/23 1350 PT Last Visit PT Received On 05/06/23 General Subjective Pt per nursing can be seen for P.T. services per nursing staff , upon mortgage loan underwriter entering the room pt was sidelying in the bed with her brief half off pt was awake and mortgage loan underwriter asked pt about getting out of bed and to go to the bathroom to check her brief. Pt willing to get up and work with therapy Cognition Overall Cognitive Status Impaired Arousal/Alertness Delayed responses to stimuli;Inconsistent responses to stimuli Orientation Level Disoriented to time;Disoriented to situation;Disoriented to place (pt looking for her dog again today mortgage loan underwriter had to explain to pt that she is not at home and her dog is at home with her . Pt could no longer use the phone today and did not even hold it the right way up to her ear) Awareness of Errors Decreased awareness of errors Problem Solving Assistance required to implement solutions Cognition Comments pts told mortgage loan underwriter in the past that pt has [...] light in place Plan PT Discharge Recommendations [facility] facility placement Goals: Multi-Disciplinary Problems (from Physical [...] a railing 1 Mobility 6 Clicks T-Score 15[facility]08[facility] Note Discharge order placed. AVS uploaded to [facility]. Transport set up with Elliott at 4PM. Transport form and packet completed and left bedside the chart. Facility and floor RN aware of transport time. Phone number for report left with packet. No further OTM needs at this time.[facility] 05-06-2023 NoteHospital Medicine Discharge Summary Final Discharge Diagnosis: NSTEMI (non-ST elevated myocardial infarction) ([facility]) Admission Diagnosis: NSTEMI (non-ST elevated myocardial infarction) ([facility]) [I21.4] Hospital course: Kiara Blanc is an 68 y.o. female who came from [facility] for NSTEMI. Patient was admittied initailly at [facility] with known history of CAD, HLD, [...] Center 06/05/2023 9:00 AM Fany Sahu NP [facility] [address] Your medication list START taking [...] capsule Commonly known a (more content not included)...[facility]08-14-2023 NoteThis report has been cancelled.[facility]08-14-2023 Note Attestation signed by Luis Alvarez DO at 05/06/2023 1:32 PM Agree with above. No behavioral complaints over the weekend. Recommend following PT/Ot's recommendations regarding placement. Psychiatry Service Progress Note Identifying Data Patient Name: Kiara Blanc MRN / CSN: [id number] Date of / Age: 6 1955 / 68 y.o. / female Encounter Date: 05/06/23 Diagnosis: The primary encounter diagnosis was NSTEMI (non-ST elevated myocardial infarction) (CMS/HCC). A diagnosis of Acute on chronic systolic (congestive) heart failure (CMS/HCC) was also pertinent to this visit. Summary Kiara Blanc is a 68 y.o. female who presented on 04/26/2023 to [facility] from [facility] for acute NSTEMI. Psychiatry was consulted on 04/29/2023 for dementia and delirium. Medical Course: Patient is a 68-year-old female with an unknown psychiatric history and medical history of CAD, HLD, CAD, chronic diastolic HF w/ NYHA Class II, diabetes mellitus presented to [facility] as a direct transfer for cardiology service evaluation for acute NSTEMI. She was admitted initially at [facility] on 04/25/2023 after she was found [...] talk to , Mr. Cameron Blanc (ph: [phone]) at the patient's bedside. He called EMS [...] Social work has put in referrals to [facility] 1st choice; [facility] 2nd choice as well as alternate choices had no preference of order: [facility], [facility]; [facility]; [facility] and [facility]. Awaiting their review. 05/03/23 - start [...] Initially sleeping, but up (more content not included)...[facility]08-13-2023 Note Hospital Medicine Daily Progress Note - 05/05/2023 10:49 AM; Room: [facility]313[facility] Admission: 04/26/2023 1:50 PM; Length of stay: 9 days THE HOSPITALIST TEAM PREFERS TO USE [employer] CHAT FOR COMMUNICATION 7AM-7PM. IF I DO NOT RESPOND WITHIN 15 MINUTES, PLEASE PAGE ME/CALL THROUGH THE CURB AND GUTTER LABORER. FROM 7PM-7AM, PLEASE PAGE [phone](COVR) Code Status: Full Code Discharge Destination: [facility]p facility Discharge planning: Pending SNF Overview Patient [...] Principal Problem: NSTEMI (non-ST elevated myocardial infarction) ([facility]) Active Problems: Acute cystitis without hematuria Hypoglycemia Traumatic rhabdomyolysis ([facility]) Acute on chronic systolic (congestive) heart failure ([facility]) Assessment and Plan # NSTEMI: # Chronic [...] 51 04/26/2023 Lab Results Component Value Date [id number] 512 04/29/2023 Imaging ECG 12 lead Sinus tachycardia Septal infarct , age undetermined T wave abnormality, consider lateral ischemia Abnormal ECG Confirmed by MD KERA, EHAB ([id number]) on 05/04/2023 11:50:40 AM Discharge Planning Discharge Planning Living Arrangements: Spouse/significant other Support Systems: Spouse/significant other Type of Residence/Post Acute Needs: [facility] facility Will patient need Precert for Post Acute needs?: Yes Patient's goal for discharge: per patient should go to rehab and maybe [facility]ysterman care. Does the patient need discharge transport arranged?: Yes Has discharge transport been arranged?: No PT Discharge Recommendations: [facility] facility placement OT Discharge Recomm (more content not included)...[facility]08-13-2023 NoteCountryside working on the insurance precert.[facility]08-12-2023 NotePhysical Therapy Physical Therapy Treatment Patient Name: Kiara Blanc : 1955 Today's Date: 05/04/2023 Patient Active Problem List Diagnosis Coronary artery disease involving spirit lake coronary artery of spirit lake heart without angina pectoris Hyperlipidemia, mixed Edema [...] seen for P.T. treatment session , upon mortgage loan underwriter entering the room pt was supine [...] sitting down. Other Activity Other Activity 2 Hoof And Shoe Inspector left pt in bedside chair with her chair alarm on , mortgage loan underwriter informed nursing that pt's chair alarm is not working well when engaged and doing the test to make sure it goes off . Call light within reach of pt Plan PT Discharge Recommendations [facility] facility placement Goals: Multi-Disciplinary Problems (from Physical [...] without using bedrails 3 (more content not included)...[facility]08-12-2023 Note Still no decision from husbands top 2 SNF choices. Met with at bedside and advised him of 2 accepting SNF's. chose [facility] [place]. Sent updates and asked them to start precert. Provided w/ [facility] info. [facility]08-12-2023 Note Attestation signed by Gaby Sanchez [...] fraction. She is to follow-up with the [place] cardiology office in [place]. Gaby Sanchez MD, MPH, [facility] Interventional Cardiology Pager Email: [email or web address] Subjective The patient was seen and [...] Value Ventricular Rate 83 Atrial Rate 83 ND Interval 178 QRS DURATION 88 QT Interval 414 QTC CALCULATION(BAZETT) 486 P [place] 64 R-[place]ined[place] -19 T Wave [place] 152 Impression Sinus rhythm with occasional Premature [...] The right ventricle a (more content not included)...[facility]08-12-2023 NoteHospital Medicine Daily Progress Note - 05/04/2023 11:00 AM; Room: [facility]3131-01 Admission: 04/26/2023 1:50 PM; Length of stay: 8 days THE HOSPITALIST TEAM PREFERS TO USE [employer] CHAT FOR COMMUNICATION 7AM-7PM. IF I DO NOT RESPOND WITHIN 15 MINUTES, PLEASE PAGE ME/CALL THROUGH THE CURB AND GUTTER LABORER. FROM 7PM-7AM, PLEASE PAGE [phone](COVR) Code Status: Full Code Discharge Destination: usp facility Discharge planning: Pending SNF Overview Patient [...] Principal Problem: NSTEMI (non-ST elevated myocardial infarction) ([facility]) Active Problems: Acute cystitis without hematuria Hypoglycemia Traumatic rhabdomyolysis ([facility]) Acute on chronic systolic (congestive) heart failure ([facility]) Assessment and Plan # NSTEMI: # Chronic [...] 51 04/26/2023 Lab Results Component Value Date [id number] 512 04/29/2023 Imaging XR hip left 2 [...] 2. Osteoarthritis left hip. (more content not included)...[facility]08-12-2023 NoteOccupational Therapy Occupational Therapy Treatment Note Patient Name: Kiara Blanc Patient Date of : 1955 Today's Date: 05/04/23 Time in: 1034 Time Out: 1108 Total Time: 34 Active Ambulatory Problems Diagnosis Date Noted Coronary artery disease involving spirit lake coronary artery of spirit lake heart without angina pectoris 07/18/2022 Hyperlipidemia, mixed [...] alarm on. Objective 2 OT Discharge Recommendation [facility] Facility OT Equipment Recommendations TBD General Pain [...] impaired Sequencing impaired Problem Solving impaired Other Hoof And Shoe Inspector questions further cognitive issues has pt had issues locating the bathroom, the sink and forgot were to put garbage. At [facility] mortgage loan underwriter placed multiple grooming items in front of pt and asked her to point to each item as mortgage loan underwriter named it. Pt only pointed to [...] to change brief. Pt required assist to pipe puller hips even after given verbal cues [...] With hands on for safety and with mortgage loan underwriter guiding walker as pt was unable to follow instructions To toilet: Minimal Assist , Rolling Walker Comments: With hands on for safety and with mortgage loan underwriter guiding walker as pt was unable to follow instructions/locate bathroom Functional Ambulation: Pt ambulated in room with use of walker with hands on for safety and with mortgage loan underwriter to guide walker as pt had difficulty locating bathroom and sink even with verbal cues and mortgage loan underwriter pointing in the direction. Tone: All [...] Expected End Date E (more content not included)...[facility]08-11-[facility], they need pending medicaid questionnaire filled out by . Industrial Fabric Cutter (SW) gave 's contact information, [facility] left voicemail. SW informed that they are unable to fully approve or begin precert without questionnaire being completed. [facility] informed SW that they are out of network, but are able to accept if patient has 5 denied facilities. KAREEM informed then that there are not 5 denied facilities. [facility] still reviewing. [facility] requested additional notes from patient's stay, Sw sent via [employer]. [facility] requested to reach out to Shani [phone] pertaining to questions over the weekend. OTM will continue to follow.[facility]08-11-2023 Note Hospital Medicine Daily Progress Note - 05/03/2023 12:09 PM; Room: [address] [place] [address] Admission: 04/26/2023 1:50 PM; Length of stay: 7 days THE HOSPITALIST TEAM PREFERS TO USE [employer] FOR COMMUNICATION 7AM-7PM. IF I DO NOT RESPOND WITHIN 15 MINUTES, PLEASE PAGE ME/CALL THROUGH THE CURB AND GUTTER LABORER. FROM 7PM-7AM, PLEASE PAGE [phone](COVR) Code Status: Full Code Discharge Destination: usp facility Discharge planning: Cath today Overview Patient [...] Acute on chronic systolic (congestive) heart failure ([facility]) Assessment and Plan # NSTEMI: # Chronic [...] 51 04/26/2023 Lab Results Component Value Date [id number] 512 04/29/2023 Imaging XR hip left 2 [...] No fracture nor dislo (more content not included)...[facility]08-11-2023 NotePhysical Therapy: Refusal of services note Wednesday May 03, 2023 Pt had been cleared medically to receive therapy services . Upon entering the room pt was yelling into her phone and out into hallway that she needed something to drink , when mortgage loan underwriter entered the room mortgage loan underwriter checked for pt on getting her something to drink with her nurse. Jenn informed mortgage loan underwriter that pt was NPO to prepare for a test today heart cath. When mortgage loan underwriter told pt why she could not have any water because of the testing pt became very upset and refused to partipate in therapy services . Hoof And Shoe Inspector wished pt the best of luck on her procedure today and made sure bed was in lowest position, and bed alarm on and that pt had her call light . Attempted time : 10:08-10:13am[facility]08[facility] Note Attestation signed by Luis Alvarez DO at 05/03/2023 3:17 PM Agree; zyprexa on standby for agitation/irritability/psychosis. Psychiatry Service Progress Note Identifying Data Patient Name: Kiara Blanc MRN / CSN: [id number] Date of / Age: 6 1955 / 68 y.o. / female Encounter Date: 05/03/23 Diagnosis: The primary encounter diagnosis was NSTEMI (non-ST elevated myocardial infarction) (CMS/HCC). A diagnosis of Acute on chronic systolic (congestive) heart failure (CMS/HCC) was also pertinent to this visit. Summary Kiara Blanc is a 68 y.o. female who presented on 04/26/2023 to [facility] from [facility] ([facility]) for acute NSTEMI. Psychiatry was consulted on 04/29/2023 for dementia and delirium. Medical Course: Patient is a 68-year-old female with an unknown psychiatric history and medical history of CAD, HLD, CAD, chronic diastolic HF w/ NYHA Class II, diabetes mellitus presented to [facility] as a direct transfer for cardiology service evaluation for acute NSTEMI. She was admitted initially at [facility] on 04/25/2023 after she was found [...] talk to , Mr. Cameron Blanc (ph: [phone]) at the patient's bedside. He called EMS [...] Social work has put in referrals to [address]; [facility]' 2nd choice as well as alternate choices had no preference of order: [facility]; [facility]; [facility] and [facility]. Awaiting their review. 05/03/23 - start ZyPREXA [...] overnight. Unable to f (more content not included)...[facility]08-10-2023 Note Per RN patient is doing better today and is out of mitts and any form of restraints. Patient has not pulled at any of her leads or lines today. Per RN and CYLINDER TESTER advised them that he did remember now that a physician had given her a dx of dementia at some point. At request of the team they feel patient could be medically ready soon. Referrals made to [address]; [facility]' 2nd choice as well as alternate choices had no preference of order: [facility]; [facility]; [facility] and [facility]. Awaiting their review.[facility]08-10-2023 NotePhysical Therapy Physical Therapy Treatment Patient Name: Kiara Blanc : 1955 Today's Date: 05/02/2023 Patient Active Problem List Diagnosis Coronary artery disease involving spirit [place] coronary artery of spirit lake heart without angina pectoris Hyperlipidemia, mixed Edema of lower extremity Chronic diastolic heart failure (CMS/HCC) Tobacco dependence NSTEMI (non-ST elevated myocardial infarction) ([facility]) Acute cystitis without hematuria Hypoglycemia Traumatic rhabdomyolysis [...] them clean her up earlier , when mortgage loan underwriter entered the room pt was R sidelying and had a soiled brief that was half off her , mortgage loan underwriter told pt she had to get cleaned up and could not sit in her BM , pt willing to get cleaned up pt kept telling mortgage loan underwriter there are holes in the bathroom and was wondering again where her dog was . Cognition Orientation Level Disoriented to time;Disoriented to situation;Disoriented to place (pts came in at end of treatment session and informed mortgage loan underwriter that pt was diagnosed by some doctor he did not remember what doctor or when with dementia. Pt thought her turkey sandwich today tasted and was zimbabwean food) Static Sitting Balance Static Sitting-Balance Support [...] her lunch . Plan PT Discharge Recommendations [facility]DC facility placement Goals: Multi-Disciplinary Problems (from Physical [...] a railing 1 Mobility 6 Clicks T-Score 16[facility] Note Physical Therapy Physical Therapy Treatment Patient Name: Kiara Blanc : 1955 Today's Date: 05/02/2023 Patient Active Problem List Diagnosis Coronary artery disease involving spirit lake coronary artery of [place] heart without angina pectoris Hyperlipidemia, mixed Edema of lower extremity Chronic diastolic heart failure (CMS/HCC) Tobacco dependence NSTEMI (non-ST elevated myocardial infarction) ([facility]/HCC) Acute cystitis without hematuria Hypoglycemia Traumatic rhabdomyolysis [...] them clean her up earlier , when mortgage loan underwriter entered the room pt was R sidelying and had a soiled brief that was half off her , mortgage loan underwriter told pt she had to get cleaned up and could not sit in her BM , pt willing to get cleaned up pt kept telling mortgage loan underwriter there are holes in the bathroom and was wondering again where her dog was . Cognition Orientation Level Disoriented to time;Disoriented to situation;Disoriented to place (pts came in at end of treatment session and informed mortgage loan underwriter that pt was diagnosed by some doctor he did not remember what doctor or when with dementia. Pt thought her turkey sandwich today tasted and was zimbabwean food) Static Sitting Balance Static Sitting-Balance Support [...] her lunch . Plan PT Discharge Recommendations FDC facility placement Goals: Multi-Disciplinary Problems (from Physical [...] a railing 1 Mobility 6 Clicks T-Score 16[facility] Hospital Medicine Daily Progress Note - 05/02/2023 12:19 PM; Room: [address] [place] [address] Admission: 04/26/2023 1:50 PM; Length of stay: 6 days THE HOSPITALIST TEAM PREFERS TO USE [employer] CHAT FOR COMMUNICATION 7AM-7PM. IF I DO NOT RESPOND WITHIN 15 MINUTES, PLEASE PAGE ME/CALL THROUGH THE CURB AND GUTTER LABORER. FROM 7PM-7AM, PLEASE PAGE [phone](COVR) Code Status: Full Code Discharge Destination: usp facility Discharge planning: Pending SNF placement Overview [...] Principal Problem: NSTEMI (non-ST elevated myocardial infarction) ([facility]) Active Problems: Acute cystitis without hematuria Hypoglycemia Traumatic rhabdomyolysis ([facility]) Acute on chronic systolic (congestive) heart failure ([facility]) Assessment and Plan # NSTEMI: # Chronic [...] 51 04/26/2023 Lab Results Component Value Date [id number] 512 04/29/2023 Imaging XR hip left 2 [...] lesion is id (more content not included)... [facility]08-10-2023 NoteClinical Nutrition Assessment Name: Kiara Blanc [...] meals and improve glucose control George Link, [facility] NotePhysical Therapy Cancellation of services for am April Pt per nursing can be seen for physical therapy services , upon mortgage loan underwriter entering pt's room pt was supine in the bed eating her breakfast with HOB elevated to 40 degrees . Pt was asking where her dog was mortgage loan underwriter explained to pt that she was in a hospital and her dog was at home . Pt said OH she thought her dog was around here referring to the hospital . Pt was also doing gross grasp movements when holding her silverware eating her breakfast , pt stated her low back hurt and pt is willing to work with mortgage loan underwriter after she finishes her breakfast. Attempted time: 09:58-10:05[facility]-10-2023 Note Attestation signed by Luis Alvarez [...] be placed in a SNF and subsequent group home post hospital discharge. Regardless of psychiatric [...] Patient Name: Kiara Blanc MRN / CSN: [id number] Date of / Age: 6 1955 / y.o. / female Encounter Date: 05/02/23 Diagnosis: The primary encounter diagnosis was NSTEMI (non-ST elevated myocardial infarction) (CMS/HCC). A diagnosis of Acute on chronic systolic (congestive) heart failure (CMS/HCC) was also pertinent to this visit. Summary Kiara Blanc is a 68 y.o. female who presented on 04/26/2023 to [facility] from [facility] ([facility]) for acute NSTEMI. Psychiatry was consulted on 04/29/2023 for dementia and delirium. Medical Course: Patient is a 68-year-old female with an unknown psychiatric history and medical history of CAD, HLD, CAD, chronic diastolic HF w/ NYHA Class II, diabetes mellitus presented to [facility] as a direct transfer for cardiology service evaluation for acute NSTEMI. She was admitted initially at [facility]) on 04/25/2023 after she was found [...] talk to , Mr. Cameron Blanc (ph: [phone]) at the patient's bedside. He called EMS when he found her after coming back from work. He mentions she frequently falls at home and has been hospitalized many times. Per , she refuses to use walker desp (more content not included)...[facility]08-09-2023 Note Attestation signed by Fercho Le MD at 05/01/2023 5:55 PM I personally saw and examined the patient on the same date of service as resident/fellow Tamera Cervantes. I discussed the findings and therapeutic plan with the resident/fellow Tamera Cervantes. I agree with the documentation, except for any edits/updates below. Teaching Physician's Revisions: I have discussed her situation with her primary electrician supervisor Dr. Gaby Sanchez. We were planning on [...] Value Ventricular Rate 83 Atrial Rate 83 ND Interval 178 QRS DURATION 88 QT Interval 414 QTC CALCULATION(BAZETT) 486 P P[place] 64 R-Pinedale -19 T Wave [place] 152 Impression Sinus rhythm with occasional Premature [...] of measurable tricuspid regurgit (more content not included)...[facility]08-09-2023 Note05/01/23 1620 Admission Assessment Questions Verify insurance with patient Yes ([employer]) Patient is not willing to answer Admission Assessment Questions at this time. Hoof And Shoe Inspector asked if I could call her and she said no . OTM to follow. [facility]08-09-2023 NotePhysical Therapy Physical Therapy Treatment Patient Name: Kiara Blanc : 1955 Today's Date: 05/01/2023 Patient Active Problem List Diagnosis Coronary artery disease involving [place] coronary artery of [place] heart without angina pectoris Hyperlipidemia, mixed Edema [...] Cognitive Status Impaired (pt unable to tell mortgage loan underwriter what she used to do for [...] , SAQ 10 reps 1 set . Hoof And Shoe Inspector did a static stretch with pt's heel [...] Transfer Level of Assistance (more content not included)...[facility]08-09-2023 Note05/01/23 1513 Referral Data Referral Source [...] Spouse/significant other Type of Residence/Post Acute Needs FDC facility Will patient need Precert for Post Acute needs? Yes Patient's goal for discharge per patient should go to rehab and maybe detention care. Does the patient need discharge transport arranged? Yes Has discharge transport been arranged? No Discharge Referral Plan and Patient Instructions: Imaging Technologist Resources [facility] ([facility] involved Adithya San [facility] [phone] ext [phone] or [phone]) KAREEM attempted to meet with patient. She [...] and doesn't do anything. SW spoke with [facility]PS Adithya San [phone] ext [phone]. (that visited with patient yesterday). They report that patients home is a hoarding home. They report it is in deplorable condition with mold. They cannot force the patient to go to rehab or detention care unless someone determines that patient does not have capacity to make her own decisions. They have offered to to assist and pay for clean up of the home. has evaded the offers and continually changes the subject when they offer. would like patient to go to rehab or oysterman care. He states he is agreeable to referrals to [facility] or [facility]. If these providers do not have available bed or unable to meet needs he is ok with referrals to: [facility], [facility], [facility], [facility] in [place] or [facility] in no particular order. SW will hold off on referrals today due to patients behaviors and her need for restraints. It does not appear that patient has any detention coverage for group home if needed. SW referred to [facility] for determination if patient would qualify for Medicaid as secondary. SW to follow.[facility] 05-01-2023 NoteHospital Medicine Daily Progress Note - 05/01/2023 12:22 PM; Room: [facility]- Admission: 04/26/2023 1:50 PM; Length of stay: 5 days THE HOSPITALIST TEAM PREFERS TO USE EPIC CHAT FOR COMMUNICATION 7AM-7PM. IF I DO NOT RESPOND WITHIN 15 MINUTES, PLEASE PAGE ME/CALL THROUGH THE CURB AND GUTTER LABORER. FROM 7PM-7AM, PLEASE PAGE [phone](COVR) Code Status: Full Code Discharge Destination: usp facility Discharge planning: Cath today Overview Patient [...] Acute cystitis without hematuria Hypoglycemia Traumatic rhabdomyolysis ([facility]/HCC) Acute on chronic systolic (congestive) heart failure ([facility]/HCC) Assessment and Plan # NSTEMI: # Chronic [...] 51 04/26/2023 Lab Results Component Value Date [id number] 04/29/2023 Imaging Complete Echo (TTE) w/wo Imaging Agent, Strain, 3D, Bubble Study 1 1 [facility] Heart Station [address] [place] [address] [phone] (fax) Echocardiogram-[facility] Name: KIARA BLANC Study Date: 04/26/2023 03:54 PM B/P: 129 mmHg/77 mmHg HR: Date of : 1955 Location: [facility] Height: 66 in. Age: 68 year(s) Patient Room: [facility] Weight: 203 lb. Gender: Female Patient Status: InPt BSA: 2.01 m2 Indication: Chest Pain Examination: Echocardiogram (Complete), Lumason Contrast Image Quality: Technically difficult study the patient was uncooperative Patient Consent: Procedure explained to patient Conclusions Left Ventricle: The left ventricle appears normal (more content not included)...[facility]08-09-2023 NoteOccupational Therapy Occupational Therapy Treatment Note Patient Name: Kiara Blanc Patient Date of : 1955 Today's Date: 05/01/23 Time in: 0928 Time Out: 1037 Total Time: 69 Active Ambulatory Problems Diagnosis Date Noted Coronary artery disease involving [place] coronary artery of [place] heart without angina pectoris 07/18/2022 Hyperlipidemia, mixed [...] was still looking for her dog after mortgage loan underwriter oriented pt. Objective 1 Pt was returned to bed at [facility] due to pt fidgeting in chair and being impulsive. Objective 2 Upon arrival pts bedding was saturated with urine (pt had pulled out Purewick), mortgage loan underwriter notes skin was on buttocks was red (nursing notified) pt also c/o pain in L hip throughout session, during rolling activity and when bringing legs into and out of bed. Hoof And Shoe Inspector notified nursing as pt was found down for several days at home. OT Discharge Recommendation [facility] Facility OT Equipment Recommendations TBD General Pain [...] -up Where Assessed: from chair, None Comments: Hoof And Shoe Inspector set up wash clothe and cued pt to wash areas of body LB Bathing Level of Assistance: Moderate assist Where Assessed: Supine (HOB raised) , from chair, None Comments: Rita care completed by mortgage loan underwriter while supine, pt sat in chair [...] body with minimal assistance (more content not included)...[facility]08-09-2023 Note Attestation signed by Luis Alvarez [...] Patient Name: Kiara Blanc MRN / CSN: [id number] Date of / Age: 6 1955 / 68 y.o. / female Encounter Date: 05/01/23 Diagnosis: The primary encounter diagnosis was NSTEMI (non-ST elevated myocardial infarction) (CMS/[facility]). A diagnosis of Acute on chronic systolic (congestive) heart failure (CMS/[facility]) was also pertinent to this visit. Summary Kiara Blanc is a 68 y.o. female who presented on 04/26/2023 to [facility] from [facility] ([facility]) for acute NSTEMI. Psychiatry was consulted on 04/29/2023 for dementia and delirium. Medical Course: Patient is a 68-year-old female with an unknown psychiatric history and medical history of CAD, HLD, CAD, chronic diastolic HF w/ NYHA Class II, diabetes mellitus presented to [facility] as a direct transfer for cardiology service evaluation for acute NSTEMI. She was admitted initially at [facility] ([facility]) on 04/25/2023 after she was found [...] talk to , . Cameron Blanc (ph: [phone]) at the patient's bedside. He called EMS [...] seen or talked (more content not included)... [facility]08-08-2023 NoteSW given information from RN provided by [facility]. Case Workers Leanna Umang [phone] ext [phone] and Adithya San [phone] ext [phone]. They provided a release of information for [facility] to communicate with APS. Copy of release in paper chart. Due to being after hours perinatal social worker will call in the am. No family at bedside. SW advised patient is not oriented and will need SNF. SW to follow [facility]08-08-2023 NotePhysical Therapy Physical Therapy Treatment Patient Name: Kiara Blanc : 1955 Today's Date: 04/30/2023 Patient Active Problem List Diagnosis Coronary artery disease involving [place] coronary artery of [place] heart without angina pectoris Hyperlipidemia, mixed Edema of lower extremity Chronic diastolic heart failure (CMS/HCC) Tobacco dependence NSTEMI (non-ST elevated myocardial infarction) (CMS/HCC) Acute cystitis without hematuria Hypoglycemia Traumatic rhabdomyolysis ([facility]) Time : 11:04-11:45 04/30/23 1556 PT Last Visit PT Received On 04/30/23 General Subjective Pt had been cleared medically by nursing staff to receive therapy services , nursing informed mortgage loan underwriter that pt was refusing all services this morning including her am medications. Upon mortgage loan underwriter entering the room pt was L sidelying in the bed with her food tray in bed with her , pt has 1 sand mitt on and while nursing in the room pt took off other sand mitt. Hoof And Shoe Inspector able to talk pt into working with [...] bedside chair with chair alarm on , mortgage loan underwriter promised to come back a couple of hours to get pt back to bed and see how she was transferring pt in agreeable to do this . Plan Level of assist 1 assist PT Discharge Recommendations FDC facility placement Goals: Multi-Disciplinary Problems (from Physical Therapy) Active Problems Problem: [facility] Start Date: 04/29/23 Goal Start Date Expected [...] from another person standi (more content not included)...[facility]08-08-2023 NoteHospital Medicine Daily Progress Note - 04/30/2023 1:14 PM; Room: [address] [place] [address] Admission: 04/26/2023 1:50 PM; Length of stay: 4 days THE HOSPITALIST TEAM PREFERS TO USE [employer] FOR COMMUNICATION 7AM-7PM. IF I DO NOT RESPOND WITHIN 15 MINUTES, PLEASE PAGE ME/CALL THROUGH THE CURB AND GUTTER LABORER. FROM 7PM-7AM, PLEASE PAGE [phone](COVR) Code Status: Full Code Discharge Destination: usp facility Discharge planning: Pending placement Overview Patient [...] Principal Problem: NSTEMI (non-ST elevated myocardial infarction) ([facility]) Active Problems: Acute cystitis without hematuria Hypoglycemia Traumatic rhabdomyolysis ([facility]) Assessment and Plan # NSTEMI: # Chronic [...] 51 04/26/2023 Lab Results Component Value Date [id number] 512 04/29/2023 Imaging Complete Echo (TTE) w/wo Imaging Agent, Strain, 3D, Bubble Study 1 1 [facility] Heart Station [address] [place] [address] [phone] (fax) Echocardiogram-[facility] Name: KIARA [...] The left ventricle appe (more content not included)...[facility] 04-30-2023 NotePhysical Therapy Physical Therapy Treatment Patient Name: Kiara Blanc : 1955 Today's Date: 04/30/2023 Patient Active Problem List Diagnosis Coronary artery disease involving [place] coronary artery of [place] heart without angina pectoris Hyperlipidemia, mixed Edema of lower extremity Chronic diastolic heart failure (CMS/HCC) Tobacco dependence NSTEMI (non-ST elevated myocardial infarction) ([facility]/HCC) Acute cystitis without hematuria Hypoglycemia Traumatic rhabdomyolysis ([facility]/HCC) Time : 12:30-13:00pm 04/30/23 1305 PT Last Visit PT Received On 04/30/23 General Subjective Hoof And Shoe Inspector had come back to put pt back to bed after she had been up for a while, upon mortgage loan underwriter entering the room pt was sitting [...] ,Chair alarm on Plan PT Discharge Recommendations FDC facility placement Goals: Multi-Disciplinary Problems (from Physical [...] and limit effects of immobility 04/29/23 05/13/23 --[facility]08-[facility] Note Attestation signed by Fercho Le [...] Value Ventricular Rate 83 Atrial Rate 83 ND Interval 178 QRS DURATION 88 QT Interval 414 QTC CALCULATION(BAZETT) 486 P Pined[place] 64 R-Pinedale -19 T Wave [place] 152 Impression Sinus rhythm with occasional Premature [...] graft to the OM-2, (more content not included)...[facility] 04-30-2023 NoteSubjective Patient did not sleep [...] Value Ventricular Rate 83 Atrial Rate 83 ND Interval 178 QRS DURATION 88 QT Interval 414 QTC CALCULATION(BAZETT) 486 P [place] 64 R-Pinedale -19 T Wave [place] 152 Impression Sinus rhythm with occasional Premature [...] without hematuria Traumatic rhab (more content not included)...[facility] 04-29-2023 NoteHospital Medicine Daily Progress Note - 04/29/2023 3:04 PM; Room: [facility]/3131- Admission: 04/26/2023 1:50 PM; Length of stay: 3 days THE HOSPITALIST TEAM PREFERS TO USE [employer] CHAT FOR COMMUNICATION 7AM-7PM. IF I DO NOT RESPOND WITHIN 15 MINUTES, PLEASE PAGE ME/CALL THROUGH THE CURB AND GUTTER LABORER. FROM 7PM-7AM, PLEASE PAGE [phone](COVR) Code Status: Full Code Discharge Destination: usp facility Discharge planning: Pending psych eval Overview [...] Principal Problem: NSTEMI (non-ST elevated myocardial infarction) ([facility]) Active Problems: Acute cystitis without hematuria Hypoglycemia Traumatic rhabdomyolysis ([facility]) Assessment and Plan # NSTEMI: # New [...] 51 04/26/2023 Lab Results Component Value Date [id number] 512 04/29/2023 Imaging Complete Echo (TTE) w/wo Imaging Agent, Strain, 3D, Bubble Study 1 1 [facility] Heart Station [address] [place] [address] [phone] (fax) Echocardiogram-[facility] Name: KIARA [...] systolic function is sever (more content not included)...[facility]08-07-2023 NotePhysical Therapy Physical Therapy Evaluation Patient [...] Problem List Diagnosis Coronary artery disease involving [place] coronary artery of [place] heart without angina pectoris Hyperlipidemia, mixed Edema [...] is a 68 y/o (more content not included)...[facility]08-07-2023 Note Attestation signed by Fercho Le [...] Value Ventricular Rate 83 Atrial Rate 83 ND Interval 178 QRS DURATION 88 QT Interval 414 QTC CALCULATION(BAZETT) 486 P [place] 64 R-Pinedale -19 T Wave [place] 152 Impression Sinus rhythm with occasional Premature [...] 05/07/2017 PROCEDURES PERFORMED: Coronar (more content not included)...[facility]08-07-2023 NoteOccupational Therapy Occupational Therapy Evaluation Patient Name: Kiara Blanc : 1955 Today's Date: 04/29/2023 Time In: 1051 Time Out: 1106 History of Present Illness Kiara Blanc is an 68 y.o. female who came from [facility] for NSTEMI. Patient was admitt[facility] with known history of CAD, HLD, [...] Problem List Diagnosis Coronary artery disease involving [place] coronary artery of [place] heart without angina pectoris Hyperlipidemia, mixed Edema of lower extremity Chronic diastolic heart failure ([facility]/HCC) Tobacco dependence NSTEMI (non-ST elevated myocardial infarction) ([facility]) Acute cystitis without hematuria Hypoglycemia Traumatic rhabdomyolysis ([facility]) History reviewed. No pertinent past medical history. [...] Level of Function Prior Function Level of Sanders: (unknown , based on body habitus likely [...] (Total Assist) Total Score (more content not included)...[facility] 04-28-2023 Note Attestation signed by Fercho [...] Value Ventricular Rate 83 Atrial Rate 83 ND Interval 178 QRS DURATION 88 QT Interval 414 QTC CALCULATION(BAZETT) 486 P [place] 64 R-Pinedale -19 T Wave [place] 152 Impression Sinus rhythm with occasional Premature [...] was administered for better (more content not included)...[facility]08-06-2023 Note Hospital Medicine Daily Progress Note - 04/28/2023 1:24 PM; Room: [facility]/3131-01 Admission: 04/26/2023 1:50 PM; Length of stay: 2 days THE HOSPITALIST TEAM PREFERS TO USE [employer] CHAT FOR COMMUNICATION 7AM-7PM. IF I DO NOT RESPOND WITHIN 15 MINUTES, PLEASE PAGE ME/CALL THROUGH THE CURB AND GUTTER LABORER. FROM 7PM-7AM, PLEASE PAGE [phone](COVR) Code Status: Full Code Discharge Destination: TBD [...] 51 04/26/2023 Lab Results Component Value Date [id number] 436 2022 Imaging Complete Echo (TTE) w/wo Imaging Agent, Strain, 3D, Bubble Study 1 1 [facility] Heart Station [address] [place] [address] [phone] (fax) Echocardiogram-[facility] Name: KIARA [...] Global left ventricular sy (more content not included)...[facility]08-05-2023 Note Attestation signed by Fercho Le [...] Value Ventricular Rate 83 Atrial Rate 83 ND Interval 178 QRS DURATION 88 QT Interval 414 QTC CALCULATION(BAZETT) 486 P Pined[place] 64 R-Pinedale -19 T Wave [place] 152 Impression Sinus rhythm with occasional Premature [...] Ventricle: The right ventricle (more content not included)...[facility]08-05-2023 NoteHospital Medicine Daily Progress Note - 04/27/2023 1:18 PM; Room: 3131/3131-01 Admission: 04/26/2023 1:50 PM; Length of stay: 1 days THE HOSPITALIST TEAM PREFERS TO USE [employer] FOR COMMUNICATION 7AM-7PM. IF I DO NOT RESPOND WITHIN 15 MINUTES, PLEASE PAGE ME/CALL THROUGH THE CURB AND GUTTER LABORER. FROM 7PM-7AM, PLEASE PAGE [phone](COVR) Code Status: Full Code Discharge Destination: TBD [...] Principal Problem: NSTEMI (non-ST elevated myocardial infarction) ([facility]) Active Problems: Acute cystitis without hematuria Hypoglycemia Traumatic rhabdomyolysis ([facility]) Assessment and Plan # NSTEMI: # Drop [...] 51 04/26/2023 Lab Results Component Value Date [id number] 436 2022 Imaging Complete Echo (TTE) w/wo Imaging Agent, Strain, 3D, Bubble Study 1 1 [facility] Heart Station [address] [place] [address] [phone] (fax) Echocardiogram-[facility] Name: KIARA [...] systolic function appears re (more content not included)...[facility] 04-27-2023 NoteEMS had called APS regarding the patient. Attempted to call [facility] to follow up but they are only open Mon-Fri 8am-4:30pm.[facility]08-05-2023 NoteOutput from [place] [facility]-2023 NoteHospital Medicine History and Physical 04/26/2023 2:36 PM THE HOSPITALIST TEAM PREFERS TO USE [employer] CHAT FOR COMMUNICATION 7AM-7PM. IF I DO NOT RESPOND WITHIN 15 MINUTES, PLEASE PAGE ME/CALL THROUGH THE CURB AND GUTTER [employer]ER. FROM 7PM-7AM, PLEASE PAGE [phone](COVR) Chief Complaint NSTEMI History of Present Illness Kiara Blanc is an 68 y.o. female who came from [facility] for NSTEMI. Patient was admittied initailly at [facility] with known history of CAD, HLD, [...] Date Noted NSTEMI (non-ST elevated myocardial infarction) ([facility]) 04/26/2023 Acute cystitis without hematuria 04/26/2023 Hypoglycemia 04/26/2023 Traumatic rhabdomyolysis ([facility]) 04/26/2023 Coronary artery disease involving [place] coronary artery of [place] heart without angina pectoris 07/18/2022 Hyperlipidemia, mixed 07/18/2022 Edema of lower extremity 07/18/2022 Chronic diastolic heart failure ([facility]) 07/18/2022 Tobacco dependence 07/18/2022 Assessment and Plan NSTEMI-Type I versus some contribution by type II secondary to rhabdo. Continue to trend troponin curve, continue aspirin, Plavix, heparin drip. Add PPI for prophylaxis. Obtain surface echo. Discussed with industrial design engineer. No plans for cath today and will [...] appropriate. Please see abov (more content not included)...[facility]06-19-2023 Hospital Discharge instructions* Discharge Instructions* Codi [...] Everywhere. * UTI (Urinary Tract Infection): Female ([place]) [facility] Evaluation note Includes: Assessments for all patient encounters Findings Encounter Date Anxiety disorder NOS Established Patient with Sobia Short LISWS 03/07/2023 Last Documented On 3 9:52PM ; [facility] Dependence on nicotine in ci garettes - uncomplicated Established Patient with Sobia Short LISWS 03/07/2023 Last Documented On 3 9:52PM ; [facility] Mild recurrent major depression Estab lished Patient with Sobia Short LISWS 03/07/2023 Last Documented On 3 9:52PM ; [facility] [Body mass index [BMI] 33.0- 33.9, adult] assessment of body mass index Medical New Patient with Sonya Carlo BOBTAILER 03/07/2023 Last Documented On 3 5:01PM ; [facility] Diabetes Risk Test Score was 7.0 score 03/07/2023 Medical New Patient with Sonya Carlo BOBTAILER 03/07/2023 Last Documented On 3 5:01PM ; [facility] Work Phone: 1(126) 452-186006-15-2023 Evaluation note Includes: Assessments for all patient encounters Findings Encounter Date Anxiety disorder NOS Established Patient with Sobia Short LISWS 03/07/2023 Last Documented On 3 9:52PM ; [facility] Dependence on nicotine in ci garettes - uncomplicated Established Patient with Sobia Short LISWS 03/07/2023 Last Documented On 3 9:52PM ; [facility] Mild recurrent major depression Estab lished Patient with Sobia Short LISWS 03/07/2023 Last Documented On 3 9:52PM ; [facility] [Body mass index [BMI] 33.0- 33.9, adult] assessment of body mass index Medical New Patient with Sonya Carlo BOBTAILER 03/07/2023 Last Documented On 3 5:15AM ; [facility] Colon screening Medical New Patient with Sonya Carlo BOBTAILER 03/07/2023 Last Documented On 3 5:15AM ; [facility] Diabetes Risk Test Score was 7.0 score 03/07/2023 Medical New Patient with Sonya Carlo BOBTAILER 03/07/2023 Last Documented On 3 5:15AM ; [facility] Screening for Hep C Medical New Patient with Ronnie sie Carlo BOBTAILER 03/07/2023 Last Documented On 3 5:15AM ; [facility] Screening for HIV Medical New Patient with Joselyn e Carlo BOBTAILER 03/07/2023 Last Documented On 3 5:15AM ; [facility] Work Phone: 1(673) 816-419106-15-2023 Evaluation note Includes: Assessments for all patient encounters Findings Encounter Date Anxiety disorder NOS Established Patient with Sobia Short LISWS 03/07/2023 Last Documented On 3 9:52PM ; [facility] Dependence on nicotine in ci garettes - uncomplicated Established Patient with Sobia Short LISWS 03/07/2023 Last Documented On 3 9:52PM ; [facility] Mild recurrent major depression Estab lished Patient with Sobia Short LISWS 03/07/2023 Last Documented On 3 9:52PM ; [facility] [Body mass index [BMI] 33.0- 33.9, adult] assessment of body mass index Medical New Patient with Sonya Carlo BOBTAILER 03/07/2023 Last Documented On 3 7:51PM ; [facility] Colon screening Medical New Patient with Sonya Carlo BOBTAILER 03/07/2023 Last Documented On 3 7:51PM ; [facility] Diabetes Risk Test Score was 7.0 score 03/07/2023 Medical New Patient with Sonya Carlo BOBTAILER 03/07/2023 Last Documented On 3 7:51PM ; [facility] Screening for Hep C Medical New Patient with Ronnie sie Carlo BOBTAILER 03/07/2023 Last Documented On 3 7:51PM ; [facility] Screening for HIV Medical New Patient with Joselyn Posada BOBTAILER 03/07/2023 Last Documented On 3 7:51PM ; [facility] Work Phone: 1(545) 762-981406-15-2023 History general Narrative - Reported Includes: Medical History in patient's chart Description Last Updated History of tooth extraction 03/07/2023 Last Documented On 3 5:15AM ; [facility] No medical history or no significant his tory 03/07/2023 Last Documented On 3 5:15AM ; [facility] No previous hospitalizations 03/07/2023 Last Documented On 3 5:15AM ; [facility] Recent immunization for flu 03/07/2023 Last Documented On 3 5:15AM ; [facility] Work Phone: 1(317) 944-313206-15-2023 History general Narrative - Reported Includes: Medical History in patient's chart Description Last Updated History of tooth extraction 03/07/2023 Last Documented On 3 7:51PM ; [facility] No medical history or no significant his tory 03/07/2023 Last Documented On 3 7:51PM ; [facility] No previous hospitalizations 03/07/2023 Last Documented On 3 7:51PM ; [facility] Recent immunization for flu 03/07/2023 Last Documented On 3 7:51PM ; [facility] Work Phone: 1(952) 876-597206-15-2023 Progress note* Progress note Date Encounter Last Documented by 03/07/2023 Established Patient Last docu mented on 03/10/2023; 9:52 PM, Sobia MALDONADO; [facility] Active Problems & Conditions - F41.9 - Anxiety Disorder Nos - E13.40 - Diabetes Mellitus Diabetic Peripheral Neuropathy - E11.9 - Diabetes Mellitus Type 2 Without Complication - I10 - Essential Hypertension - F33.0 - Major Depression Recurrent Mild - F17.210 - Nicotine Dependence Cigarettes Uncomplicated Chief Complaint The Chief Complaint is: Patient is in to establish care and [facility] met with patient to follow-up regarding PHQ [...] and provider: Counseling/Education P introduced patient to [facility] integrated model of care. P provided [...] + 0 pt : Not at all. [facility]06-15-2023 Progress note* Progress note Date Encounter Last Documented by 03/07/2023 Medical New Patient Last jose cruz burt on 03/12/2023; 5:15 AM, Sonya Posada CNP; [facility] Active Problems & Conditions - F41.9 - Anxiety Disorder Nos - E13.40 - Diabetes Mellitus Diabetic Peripheral Neuropathy - E11.9 - Diabetes Mellitus Type 2 Without Complication - I10 - Essential Hypertension - F33.0 - Major Depression Recurrent Mild - F17.210 - Nicotine Dependence Cigarettes Uncomplicated Chief Complaint The Chief Complaint is: [facility] was seeing at [facility] diabetic. Referred Here Not referred by urgent care clinic and not the emergency room. No prior encounters. - Data to be reviewed: no clinical lab tests History of Present Illness Kiara Blanc is a 67 year old female. - Allergy list reviewed - Reviewed Medications Patient presents to 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 Glucose Negative, Bilirubin Negative, Urobilinogen 0.2, Nitrite Negative, and Ketones 0 Negative. Abnormal Leukocyte Estrase +++Large, Blood Trace Hemolyzed, Specific Floris 1.025, and pH 7.0. Urine clarity Turbid [...] Present, PCP Not Present, OXY Not Present, [id number] Not Present, MTD Not Present, MET Not [...] Dysuria Outside Labs/Microbiology: Urine Culture & Sensitivity ([id number]) EndCited StartCited- Type 2 diabetes mellitus without [...] 60 years or older (3 points) [Pre-DM]. [facility]06-15-2023 Progress note* Progress note Date Encounter Last Documented by 03/07/2023 Medical New Patient Last jose cruz burt on 03/14/2023; 7:51 PM, Sonya Posada CNP; [facility] Active Problems & Conditions - F41.9 - Anxiety Disorder Nos - E13.40 - Diabetes Mellitus Diabetic Peripheral Neuropathy - E11.9 - Diabetes Mellitus Type 2 Without Complication - I10 - Essential Hypertension - F33.0 - Major Depression Recurrent Mild - F17.210 - Nicotine Dependence Cigarettes Uncomplicated Chief Complaint The Chief Complaint is: [facility] was seeing at [facility] diabetic. Referred Here Not referred by urgent care clinic and not the emergency room. No prior encounters. - Data to be reviewed: no clinical lab tests History of Present Illness Kiara Blanc is a 67 year old female. - Allergy list reviewed - Reviewed Medications Patient presents to 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 Glucose Negative, Bilirubin Negative, Urobilinogen 0.2, Nitrite Negative, and Ketones 0 Negative. Abnormal Leukocyte Estrase +++Large, Blood Trace Hemolyzed, Specific Floris 1.025, and pH 7.0. Urine clarity Turbid [...] Present, PCP Not Present, OXY Not Present, [id number] Not Present, MTD Not Present, MET Not [...] Dysuria Outside Labs/Microbiology: Urine Culture & Sensitivity ([id number]) EndCited StartCited- Type 2 diabetes mellitus without [...] [Pre-DM]. [id number] discussion with patient regarding smoking cessation, she denies need for prescription for Wellbutrin, she refuses Chantix related to she already has nightmares, and she does not want nicotine gum because of dentures. States she is going to get nicotine patches that she is can order from the TV for free. [facility]10-26-2022 NoteContinued goal-directed medical therapy, aspirin, statin, Plavix, metoprolol and lisinopril No concerning symptoms currently Continue risk factor modifications including heart healthy diet, regular exercise as tolerated and she is trying to quit smoking.[facility]10-26-2022 NoteContinue [facility]inUn[facility] NoteContinues to take lasix daily [...] clinic in 6 months or earlier if neededUnClinton [facility] Hospital10-26-2022 NotePatient here for follow up LE edema per Mariam Sahu CNP. She had BMP drawn today. Review of Systems Cardiovascular: Positive for leg swelling. All other systems reviewed and are negative.[facility] 07-18-2022 NoteSays her LE edema is much better now. Denies chest pain and SOB. Review of Systems Cardiovascular: Positive for leg swelling.[facility] 07-18-2022 NoteHPI: Kiara Blanc is a [...] on exertion or at rest or orthopnea. [facility] II-without exacerbation currently patient is euvolemic Return to clinic in 6 months or earlier if needed Hyperlipidemia, mixed Continue statin Coronary artery disease involving [place] coronary artery of [place] heart without angina pectoris Continued goal-directed medical [...] can order from the TV for free. [facility]07-03-2022 NoteMR#: [id number] I [facility] Pt. Name: Kiara Blanc Admitted: 03/16/2022 [...] Quan MD Date Trans: 03/25/2022 05:24 P/mp [id number] cc: Peter Santos M.D. [address] [facility] [id number] Reinaldo Marlow M.D. [address] [place], [place] [address] note* Diagnosis Acute cystitis without hematuria- Primary Acute cystitis documented in this encounter [facility] noteNo assessment information available [facility] Work Phone: History general Narrative - Reported Includes: Medical History in patient's chart No [facility] History [facility] Work Phone: History of Present illness Narrative History of Present Illness not supported for this document type No History of Present Illness [facility] Work Phone: Instructions Includes: Instructions for all patient encounters Education and Decision Aids were provided during visit for: BHP introduced patient to [facility] integrated model of care. ~P provided supportive [...] scheduled Last Documented On 3 9:52PM ; [facility] Discussed nutritional needs teach healthy choices including fruits and vegetables Last Documented On 3 3:42PM ; [facility] Patient education about a pr oper diet Last Documented On 3 3:42PM ; [facility] Discussed concerns about exe rcise : promote physical activity Last Documented On 3 3:42PM ; [facility] Referred Patient to a Diabet es Self-Management Program Last Documented On 3 4:08PM ; [facility] Work Phone: Instructions Includes: Instructions for all patient encounters Education and Decision Aids were provided during visit for: BHP introduced patient to [facility] integrated model of care. ~P provided supportive [...] scheduled Last Documented On 3 9:52PM ; [facility] Discussed nutritional needs teach healthy choices including fruits and vegetables Last Documented On 3 3:42PM ; [facility] Patient education about a pr oper diet Last Documented On 3 3:42PM ; [facility] Discussed concerns about exe rcise : promote physical activity ~ ~Get labs done and follow up in two weeks Last Documented On 3 5:15AM ; [facility] Referred Patient to a Diabet es Self-Management Program Last Documented On 3 4:08PM ; [facility] Work Phone: Instructions Includes: Instructions for all patient encounters Education and Decision Aids were provided during visit for: BHP introduced patient to [facility] integrated model of care. ~BHP provided supportive [...] scheduled Last Documented On 3 9:52PM ; [facility] Discussed nutritional needs teach healthy choices including fruits and vegetables Last Documented On 3 3:42PM ; [facility] Patient education about a pr oper diet Last Documented On 3 3:42PM ; [facility] Discussed concerns about exe rcise : promote physical activity ~ ~Get labs done and follow up in two weeks Last Documented On 3 5:15AM ; [facility] Referred Patient to a Diabet es Self-Management Program Last Documented On 3 4:08PM ; [facility] Work Phone: Patient problem outcome Narrative Includes: Evaluations & Outcomes for active Goals No Outcomes [facility] Work Phone: Reason for referral (narrative)No Reason for Referral [facility]ed[facility] Work Phone: Review of systems Narrative - Reported Review of Systems not supported for this document type No Review of Systems [facility]High [facility] Work Phone: Summary Purpose Family History No Family History Records Found Description Last Updated Maternal history of oncologic disorder 0 03/07/2023 Last Documented On 3 5:15AM ; [facility] Maternal history of type 2 diabetes luz itus 03/07/2023 Paternal history of type 2 diabetes luz itus 03/07/2023 Description Last Updated Maternal history of oncologic disorder 0 03/07/2023 Last Documented On 3 7:51PM ; [facility] Maternal history of type 2 diabetes luz itus 03/07/2023 Paternal history of type 2 diabetes luz itus 03/07/2023 Description Last Updated Maternal history of oncologic disorder 0 03/07/2023 Last Documented On 7:51PM ; [facility] Maternal history of type 2 diabetes luz [...] 03/27/2017 6:06 PM Directive Pat Aware Third Democrat Effective Date Reviewed Sta tus Declined to [...] DATE CREATED AUTHOR AUTHOR'S ORGANIZ ATION 02/17/2022 [facility] dical Specialist DATE CREATED AUTHOR AUTHOR'S ORGANIZ ATION 04/04/2022 [facility] DATE CREATED AUTHOR AUTHOR'S ORGANIZ ATION 01/14/2023 [facility] DATE CREATED AUTHOR AUTHOR'S ORGANIZ ATION 01/23/2023 [facility] DATE CREATED AUTHOR AUTHOR'S ORGANIZ ATION 03/09/2023 [facility] DATE CREATED AUTHOR AUTHOR'S ORGANIZ ATION 06/14/2023 [facility] DATE CREATED AUTHOR AUTHOR'S ORGANIZ ATION 11/09/2023 [facility] Reason for Visit (unrecogniz ed section [...] Care Teams (unrecognized sec tion and content) 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 [employer] [facility]. provides no warranty or guarantee of the accuracy or completeness of information in this document.
== END 2024-12-08 08:20 | disposition home or self-care (01) ==
LOC: CARD 08:20
PROVIDERS: Visit Provider Physician Assistant
DX: R09.89 Other specified symptoms and signs involving the circulatory and respiratory systems (principal)
CPT/HCPCS: 93923

== ENCOUNTER 2024-12-09 11:43 | Outpatient (OUT) | payer MEDICARE, SELFPAY ==
--- OUTSIDE RECORDS SUMMARY | 2024-12-09 11:54 | XMS_ITS | CCD ---
Author Organization [facility] Care Team Providers Care Mail Clerk Name Role Phone CAMERON LAURENT Unavailable Unavailable [...] Unavailable HEMMER, DR JAROCHO Fagan Attending Unavailable FNAY SAHU Consulting Unavailable JUDE, DR SHAH Primary [...] Unavailable Sonya Posada CNP Primary Care Provider [phone] Carlo MONTERROSO - Sonya DAVIS Primary Care Provider Amanda DRY CLEANER HELPER-GEORGINA Dailey Attending Provider [phone] FANY SAHU Attending Unavailable CHANDNI GREEN Referring [...] / HYDROcodone Drug Allergy 3 Nausea [facility] Repository (2 sources) Adhesive agent; Translations: [ADHESIVE] Propensity to adverse reactions (disorder) 7 [facility] Repository (1 source) PLASTIC BANDAGE TAMARA Drug allergy (disorder) 9 [facility] Repository (2 sources) Adhesive bandage Drug allergy (disorder) [address] [facility] Repository (4 sources) Adhesive Tape Allergy to substance 3 Health [facility] (4 sources) Bandaids Allergy to substance 3 [facility] (2 sources) Acetaminophen / HYDROcodone; Translations: [HYDROCODONE-ACET AMINOPHEN] Drug Allergy 7 Nausea And Vomiting [facility] (1 source) HYDROcodone; Translations: [HYDROCODONE BITARTRATE] Drug Allergy 1 [facility] Repository NEGATED: Highlighted row has been ruled out! 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 No family history on file Level of Service:88650 [place] OFFICE/OUTPATIENT ESTABLISHED MOD MDM 30-39 MIN Normal [facility] Basic Metabolic Panelon 04-24 Anion gap [Moles/Vol] 15.7 mmol/L High 6.0-15.0 [facility] Comment on above: Performed By: #### B MP #### [facility] [address] Calcium [Mass/Vol] 9.2 mg/dL Normal 8.6-10.3 [facility] Comment on above: Result Comment: PERF ORMED BY: [place] [address] PATHOLOGIST INVENTORY ADMINISTRATOR WEN LOBO M.D. Performed By: #### B MP #### [place] [address] [place] Chloride [Moles/Vol] 107 mmol/L Normal 98-107 [facility] Comment on above: Performed By: #### B MP #### [address] CO2 [Moles/Vol] 20.2 mmol/L Low 21.0-31.0 [facility] Comment on above: Performed By: #### B MP #### [address] Creatinine [Mass/Vol] 1.02 mg/dL Normal 0.60-1.20 [facility] Comment on above: Performed By: #### B MP #### [place] [address] [place] GFR/1.73 sq M.predicted MDRD (S/P/Bld) [Vol rate/Area] mL/min/{1.73_m2} Normal [facility] Comment on above: Performed By: #### B MP #### [place] [address] [place] Glucose [Mass/Vol] 178 mg/dL High 70-100 [facility] Comment on above: Result Comment: [place] Glucose Reference Range is dependent on time and content of last meal. Glucose of more than 200 mg/dL in a nonstressed, ambulatory subject supports the diagnosis of Diabetes Mellitus. ADA recommended reference range Performed By: #### B MP #### [address] Potassium [Moles/Vol] 4.9 mmol/L Normal 3.5-5.1 [facility] Comment on above: Performed By: #### B MP #### [place] [address] [place] Sodium [Moles/Vol] 138 mmol/L Normal 136-145 [facility] Comment on above: Performed By: #### B MP #### [facility] [address] [place] [address] [place] Urea nitrogen [Mass/Vol] 23 mg/dL Normal 7-25 [facility] Comment on above: Performed By: #### B MP #### [facility] [address] [place] [address] [place] Calcium [Mass/volume] in Ser um or PlasmaOrdered By: Angy Patel on 05-14-2023 Calcium [Mass/Vol] 9.2 mg/dL 8.6-10.3 [facility] Carbon dioxide, total [Moles /volume] in Serum or PlasmaOrdered By: Angy Patel on 05-14-2023 CO2 [Moles/Vol] 20.2 mmol/L 21.0-31.0 [facility] Chloride [Moles/volume] in S elizabeth or PlasmaOrdered By: Angy Patel on 05-14-2023 Chloride [Moles/Vol] 107 mmol/L 98-107 [facility] Creatinine [Mass/volume] in Serum or PlasmaOrdered By: Angy Patel on 05-14-2023 Creatinine [Mass/Vol] 1.02 mg/dL 0.60-1.20 [facility] Glucose [Mass/volume] in Ser um or PlasmaOrdered By: Angy Patel on 05-14-2023 Glucose [Mass/Vol] 178 mg/dL 70-100 [facility] Comment on above: ADA recommended refe rence rangeRandom Glucose Reference Range is dependent on time and content of last meal. Glucose of more than 200 mg/dL in a nonstressed, ambulatory subject supports the diagnosis of Diabetes Mellitus. No Panel InformationOrdered By: Angy Patel on 05-14-2023 Estimated GFR (CKD-EPI) > 60.0 mL/Min [facility] Creatinine Clearance (Chem N/A [facility] Potassium [Moles/volume] in Serum or PlasmaOrdered By: Angy Patel on 05-14-2023 Potassium [Moles/Vol] 4.9 mmol/L 3.5-5.1 [facility] Serum or plasma anion gap de terminationOrdered By: Angy Patel on 05-14-2023 Anion gap [Moles/Vol] 15.7 mmol/L 6.0-15.0 [facility] Sodium [Moles/volume] in Ser um or PlasmaOrdered By: Angy Patel on 05-14-2023 Sodium [Moles/Vol] 138 mmol/L 136-145 [facility] [place] Urea nitrogen [Mass/volume] in Serum or PlasmaOrdered By: Angy Patel on 05-14-2023 Urea nitrogen [Mass/Vol] 23 mg/dL 7-25 [facility] 30on 05-06-2023 30 The patient is Moder ately Stable - Low risk of patient condition declining or worsening The patient's goals for the shift include Rest/Comfort The clinical goals for the shift include VSS and Discharge Planning Patient is being discharged [facility]. Attempted to call report but got a voicemail for [place]. Left my name and phone number. Will attempt to call back in 30 minutes. Report was given to [facility]. [facility] 30 Daily Case Managemen t Update Multidisciplinary rounds have been completed. Barriers to Discharge: Awaiting pre-cert to [facility]. Diet: Dietary Orders (From admission, onward) Start [...] OT Six Click Score: 18 PT Recommendations: intermediate facility placement OT Recommendations: intermediate facility placement New Consults: Consult Orders (From admission, onward) Start Ordered 04/26/23 1357 Inpatient consult to Cardiology Once Specialty: Cardiology Provider: (Not yet assigned) Question Answer Comment Consulting Group CARDIOLOGY TEAM Reason for Consult? 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 Answer: eval 04/27/23 1306 04/27/23 1307 OT eval and treat Until therapy completed Question: Reason for OT? Answer: eval 04/27/23 1306 Normal [facility] 30 The patient is Moder ately Stable - Low risk of patient condition declining or worsening The patient's goals for the shift include TED The clinical goals for the shift include VSS Pt alert but confused. Able to feed self with set up. Incontinent of bowel/bladder. Awaiting SNF placement. Normal [facility] POCT GLUCOSE METER UNSOLICIT ED RESULTSon 05-06-2023 Glucose [Mass/Vol] 237 mg/dL High 70-105 [facility] Comment on above: Order Comment: Waive d Testing in the ED is performed under the ED CLIA certificate #[id number]. Result Comment: [email or web address] Performed By: #### L [id number] #### [facility] ([facility]) [address] [place] [address] Glucose [Mass/Vol] 137 mg/dL High 70-105 [facility] Comment on above: Order Comment: Waive d Testing in the ED is performed under the ED CLIA certificate #[id number]. Result Comment: [email or web address] Performed By: #### L [id number] #### [facility] ([facility]) [address] [place] [address] 30on 05-05-2023 30 The patient is Moder [...] and behaviors that affect risk of falls [place] fall precautions as indicated by assessment Educate [...] (Taken 05/05/2023729) (more content not included)... Normal [facility] POCT GLUCOSE METER UNSOLICIT ED RESULTSon 05-05-2023 Glucose [Mass/Vol] 261 mg/dL High 70-105 [facility] Comment on above: Order Comment: Waive d Testing in the ED is performed under the ED CLIA certificate #[id number]. Result Comment: [email or web address] Performed By: #### L [id number] #### [facility] ([facility]) [address] [place] [address] Glucose [Mass/Vol] 136 mg/dL High 70-105 [facility] Comment on above: Order Comment: Waive d Testing in the ED is performed under the ED CLIA certificate #[id number]. Result Comment: [email or web address] Performed By: #### L [id number] ####[facility] ([facility])[address] [place] [address] Glucose [Mass/Vol] 255 mg/dL High 70-105 [facility] Comment on above: Order Comment: Waive d Testing in the ED is performed under the ED CLIA certificate #[id number]. Result Comment: [email or web address] Performed By: #### L [id number] #### [facility] ([facility]) [address] [place] [address] Glucose [Mass/Vol] 194 mg/dL High 70-105 [facility] Comment on above: Order Comment: Waive d Testing in the ED is performed under the ED CLIA certificate #[id number]. Result Comment: [email or web address] Performed By: #### L [id number] #### [facility] ([facility]) [address] [facility] [place] [address] 30on 05-04-2023 30 The patient is Moder [...] and behaviors that affect risk of falls [place] fall precautions as indicated by assessment Educate [...] and prevent overall improvement and discharge Normal [facility] 30 The patient is Moder [...] and behaviors that affect risk of falls [place] fall precautions as indicated by assessment Educate [...] and behaviors that affect risk of falls [place] fall precautions as indicated by assessment Educate [...] by Dominick Velázquez (more content not included)... [facility] BASIC METABOLIC PANELon 08- Anion gap [Moles/Vol] 10 mmol/L Normal 7-20 [facility] Comment on above: Performed By: #### L [id number] #### [facility] ([facility]) [address] [place] [address] Calcium [Mass/Vol] 9.4 mg/dL Normal 8.6-10.3 [facility] Comment on above: Performed By: #### L [id number] #### [facility] ([facility]) [address] [place] [address] Chloride [Moles/Vol] 108 mmol/L High 98-107 [facility] Comment on above: Performed By: #### L [id number] #### [facility] ([facility]) [address] [place] [address] CO2 [Moles/Vol] 24 mmol/L Normal 21-31 [facility] Comment on above: Performed By: #### L [id number] #### [facility] ([facility]) [address] [place] [address] Creatinine [Mass/Vol] 0.82 mg/dL Normal 0.60-1.20 [facility] Comment on above: Performed By: #### L [id number] #### [facility] ([facility]) [address] [place] [address] GLOMERULAR FILTRATION RATE ML/MIN/1.73 SQ M.PREDICTED 78.4 mL/min/1.73m*2 Normal >60.0 [facility] Comment on above: Result Comment: [facility]???s estimated glomerular filtration rate (eGFR) [...] individuals. Performed By: #### L [id number] #### [facility] ([facility]) [address] [place] [address] Glucose [Mass/Vol] 75 mg/dL Normal 70-100 [facility] Comment on above: Performed By: #### L [id number] #### [facility] ([facility]) [address] [place] [address] Potassium [Moles/Vol] 4.0 mmol/L Normal 3.5-5.1 [facility] Comment on above: Performed By: #### L [id number] #### [facility] ([facility]) [address] [place] [address] Sodium [Moles/Vol] 138 mmol/L Normal 136-145 [facility] Comment on above: Performed By: #### L [id number] #### [facility] ([facility]) [address] [place] [address] Urea nitrogen [Mass/Vol] 18 mg/dL Normal 7-25 [facility] Comment on above: Performed By: #### L [id number] #### [facility] ([facility]) [address] [place] [address] UREA NITROGEN/CREATININE (MASS RATIO) IN SER/PLAS 22.0 Normal [facility] Comment on above: Performed By: #### L [id number] #### [facility] ([facility]) [address] [place] [address] CBCon 05-04-2023 Erythrocyte distribution width (RBC) [Ratio] 13.7 % Normal 11.5-15.0 [facility] Comment on above: Performed By: #### L [id number] #### [facility] ([facility]) [address] [place] [address] ERYTHROCYTE MEAN CORPUSCULAR HEMOGLOBIN CONCENTRATION (G/DL) BY AUTOMATED 32.7 g/dL Normal 32.0-35.0 [facility] Comment on above: Performed By: #### L [id number] #### [facility] [address] [place] [address] Hematocrit (Bld) [Volume fraction] 39.7 % Normal 36.0-48.0 [facility] Comment on above: Performed By: #### L [id number] #### [facility] ([facility]) [address] [place] [address] Hemoglobin (Bld) [Mass/Vol] 13.0 g/dL Normal 12.0-15.0 [facility] Comment on above: Performed By: #### L [id number] #### [facility] ([facility]) [address] [place] [address] MCH (RBC) [Entitic mass] 28.3 pg Normal 27.0-33.0 [facility] Comment on above: Performed By: #### L [id number] #### [facility] ([facility]) [address] [place] [address] MCV (RBC) [Entitic vol] 86.3 fL Normal 82.0-98.0 [facility] Comment on above: Performed By: #### L [id number] #### [facility] ([facility]) [address] [place] [address] PLATELETS (10*3/UL) IN BLOOD AUTOMATED COUNT 383 10*3/uL Normal 150-400 [facility] Comment on above: Performed By: #### L [id number] #### [facility] ([facility]) [address] [place] [address] RBC (Bld) [#/Vol] 4.60 10*6/uL Normal 3.80-5.00 [facility] Comment on above: Performed By: #### L [id number] #### [facility] ([facility]) [address] [place] [address] WBC (Bld) [#/Vol] 8.84 10*3/uL Normal 4.00-10.60 [facility] Comment on above: Performed By: #### L [id number] #### [facility] ([facility]) [address] [place] [address] MAGNESIUMon 05-04-2023 Magnesium [Mass/Vol] 1.5 mg/dL Low 1.9-2.7 [facility] Comment on above: Performed By: #### L [id number] #### [facility] ([facility]) [address] [place] [address] POCT GLUCOSE METER UNSOLICIT ED RESULTSon 05-04-2023 Glucose [Mass/Vol] 181 mg/dL High 70-105 [facility] Comment on above: Order Comment: Waive d Testing in the ED is performed under the ED CLIA certificate #[id number]. Result Comment: [email or web address] Performed By: #### L [id number] #### [facility] ([facility]) [address] [place] [address] Glucose [Mass/Vol] 141 mg/dL High 70-105 [facility] Comment on above: Order Comment: Waive d Testing in the ED is performed under the ED CLIA certificate #[id number]. Result Comment: [email or web address] Performed By: #### L [id number] #### [facility] ([facility]) [address] [place] [address] Glucose [Mass/Vol] 189 mg/dL High 70-105 [facility] Comment on above: Order Comment: Waive d Testing in the ED is performed under the ED CLIA certificate #[id number]. Result Comment: [email or web address] Performed By: #### L [id number] #### [facility] ([facility]) [address] [place] [address] Glucose [Mass/Vol] 84 mg/dL Normal 70-105 [facility] Comment on above: Order Comment: Waive d Testing in the ED is performed under the ED CLIA certificate #[id number]. Result Comment: [email or web address] Performed By: #### L [id number] #### [facility] ([facility]) [address] [place] [address] TROPONIN Ion 05-04-2023 Troponin I.cardiac [Mass/Vol] 0.04 ng/mL Normal 0.00-0.04 [facility] Comment on above: Performed By: #### L [id number] #### [facility] ([facility]) [address] [place] [address] 30on 05-03-2023 30 The patient is Moder [...] and behaviors that affect risk of falls [place] fall precautions as indicated by assessment Educate [...] and prevent overall improvement and discharge Normal [facility] 30 The patient is Moder [...] and behaviors that affect risk of falls [place] fall precautions as indicated by assessment Educate [...] Progressing Flowshe (more content not included)... Normal [facility] 30 Daily Case Managemen t Update Multidisciplinary rounds have been completed. 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 cath today Diet: Dietary Orders (From admission, onward) Start Ordered 05/03/23901 Diet NPO Diet effective now Comments: Sips with medications 05/03/23901 Physician Expected Discharge Date: 05/04/2023 Discharge Delays: Awaiting accepting facility [113] Waiting on discharge facility authorization [108] PT Six Click Score: 16 OT Six Click Score: 15 PT Recommendations: intermediate facility placement OT Recommendations: intermediate facility placement New Consults: Consult Orders (From admission, onward) Start Ordered 04/26/23 1357 Inpatient consult to Cardiology Once Specialty: Cardiology Provider: (Not yet assigned) Question Answer Comment Consulting Group CARDIOLOGY TEAM Reason for Consult? 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 Answer: eval 04/27/23 1306 04/27/23 1307 OT eval and treat Until therapy completed Question: Reason for OT? Answer: eval 04/27/23 1306 Normal [facility] 30 The patient is Moder [...] and behaviors that affect risk of falls [place] fall precautions as indicated by assessment Educate [...] and prevent overall improvement and discharge Normal [facility] CBCon 05-03-2023 Erythrocyte distribution width (RBC) [Ratio] 13.5 % Normal 11.5-15.0 [facility] Comment on above: Performed By: #### L [id number] #### [facility] ([facility]) [address] [place] [address] ERYTHROCYTE MEAN CORPUSCULAR HEMOGLOBIN CONCENTRATION (G/DL) BY AUTOMATED 32.0 g/dL Normal 32.0-35.0 [facility] Comment on above: Performed By: #### L [id number] #### [facility] ([facility]) [address] [place] [address] Hematocrit (Bld) [Volume fraction] 40.6 % Normal 36.0-48.0 [facility] Comment on above: Performed By: #### L [id number] #### [facility] ([facility]) [address] [place] [address] Hemoglobin (Bld) [Mass/Vol] 13.0 g/dL Normal 12.0-15.0 [facility] Comment on above: Performed By: #### L [id number] #### [facility] ([facility]) [address] [place] [address] MCH (RBC) [Entitic mass] 27.9 pg Normal 27.0-33.0 [facility] Comment on above: Performed By: #### L [id number] #### [facility] ([facility]) [address] [place] [address] MCV (RBC) [Entitic vol] 87.1 fL Normal 82.0-98.0 [facility] Comment on above: Performed By: #### L [id number] #### [facility] ([facility]) [address] [place] [address] PLATELETS (10*3/UL) IN BLOOD AUTOMATED COUNT 298 10*3/uL Normal 150-400 [facility] Comment on above: Performed By: #### L [id number] #### [facility] ([facility]) [address] [place] [address] RBC (Bld) [#/Vol] 4.66 10*6/uL Normal 3.80-5.00 [facility] Comment on above: Performed By: #### L [id number] #### [facility] ([facility]) [address] [place] [address] WBC (Bld) [#/Vol] 7.80 10*3/uL Normal 4.00-10.60 [facility] Comment on above: Performed By: #### L [id number] #### [facility] ([facility]) [address] [place] [address] POCT GLUCOSE METER UNSOLICIT ED RESULTSon 05-03-2023 Glucose [Mass/Vol] 87 mg/dL Normal 70-105 [facility] Comment on above: Order Comment: Basel ine aPTT before initiating heparin infusion. Result Comment: [email or web address] Performed By: #### L [id number] #### [facility] ([facility]) [address] [place] [address] Glucose [Mass/Vol] 366 mg/dL High 70-105 [facility] Comment on above: Order Comment: Waive d Testing in the ED is performed under the ED CLIA certificate #[id number]. Result Comment: [email or web address] Performed By: #### L [id number] #### [facility] ([facility]) [address] [place] [address] Glucose [Mass/Vol] 236 mg/dL High 70-105 [facility] Comment on above: Order Comment: Waive d Testing in the ED is performed under the ED CLIA certificate #[id number]. Result Comment: [email or web address] Performed By: #### L [id number] ####[facility] ([facility])[address] [place] [address] Glucose [Mass/Vol] 161 mg/dL High 70-105 [facility] Comment on above: Order Comment: Waive d Testing in the ED is performed under the ED CLIA certificate #[id number]. Result Comment: [email or web address] Performed By: #### L [id number] ####[facility] ([facility])[address] [place] [address] 30on 05-02-2023 30 The patient is Moder [...] urinary retention Outcome: Adequate for Discharge Normal [facility] BASIC METABOLIC PANELon 08- Anion gap [Moles/Vol] 11 mmol/L Normal 7-20 [facility] Comment on above: Performed By: #### L [id number] #### [facility] ([facility]) [address] [place] [address] Calcium [Mass/Vol] 9.3 mg/dL Normal 8.6-10.3 [facility] Comment on above: Performed By: #### L [id number] #### [facility] ([facility]) [address] [place] [address] Chloride [Moles/Vol] 108 mmol/L High 98-107 [facility] Comment on above: Performed By: #### L [id number] #### [facility] ([facility]) [address] [place] [address] CO2 [Moles/Vol] 26 mmol/L Normal 21-31 [facility] Comment on above: Performed By: #### L [id number] #### [facility] ([facility]) [address] [place] [address] Creatinine [Mass/Vol] 0.88 mg/dL Normal 0.60-1.20 [facility] Comment on above: Performed By: #### L [id number] #### [facility] ([facility]) [address] [place] [address] GLOMERULAR FILTRATION RATE ML/MIN/1.73 SQ M.PREDICTED 72.0 mL/min/1.73m*2 Normal >60.0 [facility] Comment on above: Result Comment: [facility]???s estimated glomerular filtration rate (eGFR) [...] group of individuals. Performed By: #### L [id number] #### [facility] ([facility]) [address] [place], [place] [address] Glucose [Mass/Vol] 197 mg/dL High 70-100 [facility] Comment on above: Performed By: #### L [id number] #### [facility] [address] [place] [address] Potassium [Moles/Vol] 3.9 mmol/L Normal 3.5-5.1 [facility] Comment on above: Performed By: #### L [id number] #### [facility] [address] [place] [address] Sodium [Moles/Vol] 141 mmol/L Normal 136-145 [facility] Comment on above: Performed By: #### L [id number] #### [facility] [address] [place] [address] Urea nitrogen [Mass/Vol] 24 mg/dL Normal 7-25 [facility] Comment on above: Performed By: #### L [id number] #### [facility] [address] [place] [address] UREA NITROGEN/CREATININE (MASS RATIO) IN SER/PLAS 27.3 Normal [facility] Comment on above: Performed By: #### L [id number] #### [facility] [address] [place] [address] MAGNESIUMon 05-02-2023 Magnesium [Mass/Vol] 1.5 mg/dL Low 1.9-2.7 [facility] Comment on above: Performed By: #### L [id number] ####[facility] [place] [address] POCT GLUCOSE METER UNSOLICIT ED RESULTSon 05-02-2023 Glucose [Mass/Vol] 204 mg/dL High 70-105 [facility] Comment on above: Order Comment: Basel ine aPTT before initiating heparin infusion. Result Comment: [email or web address] Performed By: #### L [id number] #### [facility] ([facility]) [address] [place] [address] Glucose [Mass/Vol] 372 mg/dL High 70-105 [facility] Comment on above: Order Comment: Waive d Testing in the ED is performed under the ED CLIA certificate #[id number]. Result Comment: [email or web address] Performed By: #### L [id number] #### [facility] [address] [place] [address] Glucose [Mass/Vol] 338 mg/dL High 70-105 [facility] Comment on above: Order Comment: Waive d Testing in the ED is performed under the ED CLIA certificate #[id number]. Result Comment: [email or web address] [email or web address] Performed By: #### L [id number] #### [facility] [address] [place] [address] Glucose [Mass/Vol] 144 mg/dL High 70-105 [facility] Comment on above: Order Comment: Waive d Testing in the ED is performed under the ED CLIA certificate #[id number]. Result Comment: [email or web address] [email or web address] Performed By: #### L [id number] #### [facility] [address] [place] [address] 30on 05-01-2023 30 Daily Case Managemen t [...] OT Six Click Score: 15 PT Recommendations: intermediate facility placement OT Recommendations: intermediate facility placement New Consults: Consult Orders (From admission, onward) Start Ordered 04/26/23 1357 Inpatient consult to Cardiology Once Specialty: Cardiology Provider: (Not yet assigned) Question Answer Comment Consulting Group CARDIOLOGY TEAM Reason for Consult? 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 Answer: eval 04/27/23 1306 Normal [facility] 30 The patient is Moder [...] Absence of urinary retention Outcome: Progressing Normal [facility] BASIC METABOLIC PANELon 08-0 Anion gap [Moles/Vol] 11 mmol/L Normal 7-20 [facility] Comment on above: Performed By: #### L [id number] #### [facility] [address] [place] [address] Calcium [Mass/Vol] 9.1 mg/dL Normal 8.6-10.3 [facility] Comment on above: Performed By: #### L [id number] #### [facility] [address] [place] [address] Chloride [Moles/Vol] 108 mmol/L High 98-107 [facility] Comment on above: Performed By: #### L [id number] #### [facility] [address] [place] [address] CO2 [Moles/Vol] 23 mmol/L Normal 21-31 [facility] Comment on above: Performed By: #### L [id number] #### [facility] [address] [place] [address] Creatinine [Mass/Vol] 0.76 mg/dL Normal 0.60-1.20 [facility] Comment on above: Performed By: #### L [id number] #### [facility] [address] [place] [address] GLOMERULAR FILTRATION RATE ML/MIN/1.73 SQ M.PREDICTED 85.8 mL/min/1.73m*2 Normal >60.0 [facility] Comment on above: Result Comment: The [facility]???s estimated glomerular filtration rate (eGFR) [...] individuals. Performed By: #### L [id number] #### [facility] [address] [place] [address] Glucose [Mass/Vol] 204 mg/dL High 70-100 [facility] Comment on above: Performed By: #### L [id number] #### [facility] [address] [place] [address] Potassium [Moles/Vol] 4.1 mmol/L Normal 3.5-5.1 [facility] Comment on above: Performed By: #### L [id number] #### [facility] [address] [place] [address] Sodium [Moles/Vol] 138 mmol/L Normal 136-145 [facility] Comment on above: Performed By: #### L [id number] #### [facility] [address] [place] [address] Urea nitrogen [Mass/Vol] 26 mg/dL High 7-25 [facility] Comment on above: Performed By: #### L [id number] #### [facility] [address] [place] [address] UREA NITROGEN/CREATININE (MASS RATIO) IN SER/PLAS 34.2 Normal [facility] Comment on above: Performed By: #### L [id number] #### [facility] [address] [place] [address] CBCon 05-01-2023 Erythrocyte distribution width (RBC) [Ratio] 13.2 % Normal 11.5-15.0 [facility] Comment on above: Performed By: #### L [id number] ####[facility] [place] [address] ERYTHROCYTE MEAN CORPUSCULAR HEMOGLOBIN CONCENTRATION (G/DL) BY AUTOMATED 33.0 g/dL Normal 32.0-35.0 [facility] Comment on above: Performed By: #### L [id number] ####[facility] [place] [address] Hematocrit (Bld) [Volume fraction] 39.4 % Normal 36.0-48.0 [facility] Comment on above: Performed By: #### L [id number] ####[facility] [place] [address] Hemoglobin (Bld) [Mass/Vol] 13.0 g/dL Normal 12.0-15.0 [facility] Comment on above: Performed By: #### L [id number] ####[facility] [place] [address] MCH (RBC) [Entitic mass] 28.0 pg Normal 27.0-33.0 [facility] Comment on above: Performed By: #### L [id number] ####[facility] [place] [address] MCV (RBC) [Entitic vol] 84.9 fL Normal 82.0-98.0 [facility] Comment on above: Performed By: #### L [id number] ####[facility] [place] [address] PLATELETS (10*3/UL) IN BLOOD AUTOMATED COUNT 341 10*3/uL Normal 150-400 [facility] Comment on above: Performed By: #### L [id number] ####[facility] [place] [address] RBC (Bld) [#/Vol] 4.64 10*6/uL Normal 3.80-5.00 [facility] Comment on above: Performed By: #### L [id number] ####[facility] [place] [address] WBC (Bld) [#/Vol] 7.98 10*3/uL Normal 4.00-10.60 [facility] Comment on above: Performed By: #### L [id number] ####[facility])[address] [place] [address] HPon 05-01-2023 HP ------ -- Attestation signed by Gaby Sanchez MD at 05/01/2023 3:08 PM Due to worsening in the patient's mental status, the cardiac catheterization will be deferred at this juncture. Decisions regarding timing will need to be made on a day-to-day basis. Gaby Sanchez MD, MPH, [facility], [facility], [facility] Interventional Cardiology Pager Email: [email or web address] -- H&P reviewed. The patient was examined and there are no changes to the H&P. Patient with NSTEMI vs Type II SC and new reduction of EF (45% to 30%). Peak troponin 2.4. Plan for coronary angiography today. Normal [facility] MAGNESIUMon 05-01-2023 Magnesium [Mass/Vol] 1.3 mg/dL Low 1.9-2.7 [facility] Comment on above: Performed By: #### L [id number] #### [facility] [address] [place] [address] NURSNOTEon 05-01-2023 NURSNOTE Patient had pulled h er IV out, technical writer and editor called the PICC-nurse to start a new one and patient tried to hit the PICC nurse and refused to get the IV. Dr. Quan is aware that patient is without an IV. [facility] NURSNOTE Patient has become m ore agitated and non-compliant with telemetry monitoring. She tried to hit the technical writer and editor and leave the room. Security was called and they helped the patient back to bed and safety. Dr. Quan is notified and he is okay with patient not being monitored. [facility] is notified as well. [facility] POCT GLUCOSE METER UNSOLICIT ED RESULTSon 05-01-2023 Glucose [Mass/Vol] 241 mg/dL High 70-105 [facility] Comment on above: Order Comment: Waive d Testing in the ED is performed under the ED CLIA certificate #[id number]. Result Comment: atru ss Performed By: #### L [id number] #### [facility] [address] [place] [address] Glucose [Mass/Vol] 174 mg/dL High 70-105 [facility] Comment on above: Order Comment: Waive d Testing in the ED is performed under the ED CLIA certificate #[id number]. Result Comment: [email or web address] esn Performed By: #### L [id number] #### [facility] [address] [place] [address] Glucose [Mass/Vol] 211 mg/dL High 70-105 [facility] Comment on above: Order Comment: Waive d Testing in the ED is performed under the ED CLIA certificate #[id number]. Result Comment: [facility] [email or web address] Performed By: #### L [id number] #### [facility] [address] [place] [address] 30on 04-30-2023 30 Daily Case Managemen t [...] OT Six Click Score: 6 PT Recommendations: intermediate facility placement OT Recommendations: intermediate facility placement New Consults: Consult Orders (From admission, onward) Start Ordered 04/26/23 1357 Inpatient consult to Cardiology Once Specialty: Cardiology Provider: (Not yet assigned) Question Answer Comment Consulting Group CARDIOLOGY TEAM Reason for Consult? 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 Answer: eval 04/27/23 1306 Normal [facility] 30 The patient is Moder [...] Absence of urinary retention Outcome: Progressing Normal [facility] 30 The patient is Moder [...] and oxygenation Outcome: Adequate for Discharge Normal [facility] BASIC METABOLIC PANELon 08-0 Anion gap [Moles/Vol] 11 mmol/L Normal 7-20 [facility] Comment on above: Performed By: #### L [id number] #### [facility] [address] [place] [address] Calcium [Mass/Vol] 9.3 mg/dL Normal 8.6-10.3 [facility] Comment on above: Performed By: #### L [id number] #### [facility] [address] [place] [address] Chloride [Moles/Vol] 108 mmol/L High 98-107 [facility] Comment on above: Performed By: #### L [id number] #### [facility] [address] [place] [address] CO2 [Moles/Vol] 29 mmol/L Normal 21-31 [facility] Comment on above: Performed By: #### L [id number] #### [facility] [address] [place] [address] Creatinine [Mass/Vol] 0.82 mg/dL Normal 0.60-1.20 [facility] Comment on above: Performed By: #### L [id number] #### [facility] [address] [place] [address] GLOMERULAR FILTRATION RATE ML/MIN/1.73 SQ M.PREDICTED 78.4 mL/min/1.73m*2 Normal >60.0 [facility] Comment on above: Result Comment: The [facility]???s estimated glomerular filtration rate (eGFR) [...] group of individuals. Performed By: #### L [id number] #### [facility] [address] [place] [address] Glucose [Mass/Vol] 165 mg/dL High 70-100 [facility] Comment on above: Performed By: #### L [id number] #### [facility] [address] [place] [address] Potassium [Moles/Vol] 3.7 mmol/L Normal 3.5-5.1 [facility] Comment on above: Performed By: #### L [id number] #### [facility] [address] [place] [address] Sodium [Moles/Vol] 144 mmol/L Normal 136-145 [facility] Comment on above: Performed By: #### L [id number] #### [facility] [address] [place] [address] Urea nitrogen [Mass/Vol] 22 mg/dL Normal 7-25 [facility] Comment on above: Performed By: #### L [id number] #### [facility] [address] [place] [address] UREA NITROGEN/CREATININE (MASS RATIO) IN SER/PLAS 26.8 Normal [facility] Comment on above: Performed By: #### L [id number] #### [facility] [address] [place] [address] MAGNESIUMon 04-30-2023 Magnesium [Mass/Vol] 1.5 mg/dL Low 1.9-2.7 [facility] Comment on above: Performed By: #### L [id number] #### [facility] [address] [place] [address] POCT GLUCOSE METER UNSOLICIT ED RESULTSon 04-30-2023 Glucose [Mass/Vol] 202 mg/dL High 70-105 [facility] Comment on above: Order Comment: Waive d Testing in the ED is performed under the ED CLIA certificate #[id number]. Result Comment: [email or web address] Performed By: #### L [id number] #### [facility] ([facility]) [address] [place] [address] Glucose [Mass/Vol] 379 mg/dL High 70-105 [facility] Comment on above: Order Comment: Waive d Testing in the ED is performed under the ED CLIA certificate #[id number]. Result Comment: [facility] [email or web address] Performed By: #### L [id number] ####[facility] ([facility])[address] [place] [address] Glucose [Mass/Vol] 150 mg/dL High 70-105 [facility] Comment on above: Order Comment: Waive d Testing in the ED is performed under the ED CLIA certificate #[id number]. Result Comment: [facility] [email or web address] Performed By: #### L [id number] #### [facility] ([facility]) [address] [place] [address] Glucose [Mass/Vol] 156 mg/dL High 70-105 [facility] Comment on above: Order Comment: Waive d Testing in the ED is performed under the ED CLIA certificate #[id number]. Result Comment: [email or web address] Performed By: #### L [id number] #### [facility] ([facility]) [address] [place] [address] 30on 04-29-2023 30 Daily Case Managemen t [...] OT Six Click Score: 6 PT Recommendations: intermediate facility placement OT Recommendations: intermediate facility placement New Consults: Consult Orders (From [...] for Consult? 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 Answer: eval 04/27/23 1306 Normal [facility] 30 Problem: Pain - Adul t Goal: [...] and behaviors that affect risk of falls [place] fall precautions as indicated by assessment Educate [...] and behaviors that affect risk of falls [place] fall precautions as indicated by assessment Educate [...] to preven (more content not included)... Normal [facility] BASIC METABOLIC PANELon 08-0 Anion gap [Moles/Vol] 15 mmol/L Normal 7-20 [facility] Comment on above: Performed By: #### L [id number] #### [facility] [address] [place] [address] Calcium [Mass/Vol] 9.1 mg/dL Normal 8.6-10.3 [facility] Comment on above: Performed By: #### L [id number] #### [facility] [address] [facility] [place] [address] Chloride [Moles/Vol] 106 mmol/L Normal 98-107 [facility] Comment on above: Performed By: #### L [id number] #### [facility] [address] [place] [address] CO2 [Moles/Vol] 22 mmol/L Normal 21-31 [facility] Comment on above: Performed By: #### L [id number] #### [facility] [address] [place] [address] Creatinine [Mass/Vol] 0.74 mg/dL Normal 0.60-1.20 [facility] Comment on above: Performed By: #### L [id number] #### [facility] [address] [place] [address] GLOMERULAR FILTRATION RATE ML/MIN/1.73 SQ M.PREDICTED 88.6 mL/min/1.73m*2 Normal >60.0 [facility] Comment on above: Result Comment: [facility]???s estimated glomerular filtration rate (eGFR) [...] group of individuals. Performed By: #### L [id number] #### [facility] [address] [place] [address] Glucose [Mass/Vol] 223 mg/dL High 70-100 [facility] Comment on above: Performed By: #### L [id number] #### [facility] [address] [place] [address] Potassium [Moles/Vol] 3.8 mmol/L Normal 3.5-5.1 [facility] Comment on above: Performed By: #### L [id number] #### [facility] [address] [place] [address] Sodium [Moles/Vol] 139 mmol/L Normal 136-145 [facility] Comment on above: Performed By: #### L [id number] #### [facility] [address] [place] [address] Urea nitrogen [Mass/Vol] 20 mg/dL Normal 7-25 [facility] Comment on above: Performed By: #### L [id number] #### [facility] [address] [place] [address] UREA NITROGEN/CREATININE (MASS RATIO) IN SER/PLAS 27.0 Normal [facility] Comment on above: Performed By: #### L [id number] #### [facility] [address] [place] [address] CBCon 04-29-2023 Erythrocyte distribution width (RBC) [Ratio] 13.2 % Normal 11.5-15.0 [facility] Comment on above: Performed By: #### L [id number] #### [facility] [address] [address] ERYTHROCYTE MEAN CORPUSCULAR HEMOGLOBIN CONCENTRATION (G/DL) BY AUTOMATED 34.3 g/dL Normal 32.0-35.0 [facility] Comment on above: Performed By: #### L [id number] #### [facility] [address] [address] Hematocrit (Bld) [Volume fraction] 38.2 % Normal 36.0-48.0 [facility] Comment on above: Performed By: #### L [id number] #### [facility] [address] [address] Hemoglobin (Bld) [Mass/Vol] 13.1 g/dL Normal 12.0-15.0 [facility] Comment on above: Performed By: #### L [id number] #### [facility] [address] [place] [address] MCH (RBC) [Entitic mass] 28.5 pg Normal 27.0-33.0 [facility] Comment on above: Performed By: #### L [id number] #### [facility] [address] [place] [address] MCV (RBC) [Entitic vol] 83.2 fL Normal 82.0-98.0 [facility] Comment on above: Performed By: #### L [id number] #### [facility] [address] [place] [address] PLATELETS (10*3/UL) IN BLOOD AUTOMATED COUNT 305 10*3/uL Normal 150-400 [facility] Comment on above: Performed By: #### L [id number] #### [facility] ([facility]) [address] [address] RBC (Bld) [#/Vol] 4.59 10*6/uL Normal 3.80-5.00 [facility] Comment on above: Performed By: #### L [id number] #### [facility]) [address] [place] [address] WBC (Bld) [#/Vol] 7.42 10*3/uL Normal 4.00-10.60 [facility] Comment on above: Performed By: #### L [id number] #### [facility] ([facility]) [address] [place] [address] CONSULTon 04-29-2023 CONSULT ------ -- Attestation signed by Luis Alvarez DO at 05/01/2023 1:00 PM Agree with above, provisional diagnosis is delirium secondary to medical condition. -- PSYCHIATRIC INITIAL HISTORY AND PHYSICAL/CONSULT NOTE Kiara Blanc is a 68 y.o. female who presented on 04/26/2023 to [facility] from [facility] ([place]) for acute NSTEMI. Psychiatry was consulted on 04/29/2023 for dementia and delirium. Legal guardian/Decision maker: Per patient, self. No assigned POA. Subjective: History of Present Illness: Patient is a 68-year-old female with an unknown psychiatric history and medical history of CAD, HLD, CAD, chronic diastolic HF w/ NYHA Class II, diabetes mellitus presented to [facility] as a direct transfer for cardiology service evaluation for acute NSTEMI. She was admitted initially at [facility] ([facility]) on 04/25/2023 after she was found lying [...] over 1000. She was subsequently transferred to [facility] for cardiac evaluation. She was [...] talk to , Mr. Cameron Blanc (ph: [phone]) at the patient's bedside. He called EMS [...] multiple hospitaliz (more content not included)... Normal [facility] HEPARIN LEVELon 04-29-2023 HEPARIN UNFRACTIONATED (U/ML) IN PPP BY CHROMOGENIC METHOD 0.26 IU/mL Low 0.3-0.7 [facility] Comment on above: Result Comment: [place] roxaban and Apixaban will interfere with the anti Xa assay used to monitor UFH and LMWH. Performed By: #### L [id number] ####[facility])[address] [place] [address] MAGNESIUMon 04-29-2023 Magnesium [Mass/Vol] 1.6 mg/dL Low 1.9-2.7 [facility] Comment on above: Performed By: #### L [id number] #### [facility] ([facility]) [address] [place] [address] NURSNOTEon 04-29-2023 [facility]NOTE [facility]. Informed of most recent poc for his at this time. Informed Dr Talley and psychiatry of being present at bedside in order for them to involve in pt care. Psych states will come speak to . Normal [facility] POCT GLUCOSE METER UNSOLICIT ED RESULTSon 04-29-2023 Glucose [Mass/Vol] 209 mg/dL High 70-105 [facility] Comment on above: Order Comment: Waive d Testing in the ED is performed under the ED CLIA certificate #[id number]. Result Comment: [email or web address] Performed By: #### L [id number] ####[facility] ([facility])[address] [place] [address] Glucose [Mass/Vol] 210 mg/dL High 70-105 [facility] Comment on above: Order Comment: Waive d Testing in the ED is performed under the ED CLIA certificate #[id number]. Result Comment: [email or web address] [email or web address] Performed By: #### L [id number] ####[facility] [place] [address] Glucose [Mass/Vol] 210 mg/dL High 70-105 [facility] Comment on above: Order Comment: Waive d Testing in the ED is performed under the ED CLIA certificate #[id number]. Result Comment: mhil [email or web address] Performed By: #### L [id number] ####[facility] [place] [address] Glucose [Mass/Vol] 184 mg/dL High 70-105 [facility] Comment on above: Order Comment: Waive d Testing in the ED is performed under the ED CLIA certificate #[id number]. Result Comment: [email or web address] [email or web address] Performed By: #### L [id number] #### [facility] ([facility]) [address] [place] [place] [address] TSH3 REFLEX TO FT4on 023 THYROTROPIN (MIU/L) IN SER/PLAS BY DETECTION LIMIT <= 0.05 MIU/L 1.24 mIU/L Normal 0.34-5.60 [facility] Comment on above: Performed By: #### L [id number] #### [facility] ([facility] [address] [place] [address] URINALYSIS MICROSCOPIC WITH REFLEX CULTUREon 04-29-2023 CASTS IN URINE Normal [facility] Comment on above: Performed By: #### L [id number] #### [facility] [address] [place] [address] CRYSTALS IN URINE Normal [facility] Comment on above: Performed By: #### L [id number] #### [facility] [address] [place] [address] OTHER MICROSCOPIC ELEMENTS Normal [facility] Comment on above: Performed By: #### L [id number] #### [facility] [address] [place] [address] RBC (#/HPF) IN URINE SEDIMENT None Seen Normal None Seen [facility] Comment on above: Performed By: #### L [id number] #### [facility] [address] [place] [address] SQUAMOUS EPITHELIAL CELLS (#/HPF) IN URINE SEDIMENT Few Abnormal None Seen, Occasional [facility] Comment on above: Performed By: #### L [id number] #### [facility] [address] [place] [address] WBC (LEUKOCYTE) (#/HPF) IN URINE SEDIMENT 3-5 Abnormal None Seen [facility] Comment on above: Performed By: #### L [id number] #### [facility] [address] [place] [address] YEAST, BUDDING (#/HPF) IN URINE Many Abnormal None Seen [facility] Comment on above: Performed By: #### L [id number] #### [facility] [address] [place] [address] URINALYSIS WITH REFLEX CULTU REon 04-29-2023 BILIRUBIN, TOTAL PRESENCE IN URINE Negative Normal Negative [facility] Comment on above: Performed By: #### L [id number] #### [facility] [address] [place] [address] Clarity (U) Clear Normal Clear [facility] Comment on above: Performed By: #### L [id number] #### [facility] [address] [place] [address] Color (U) Yellow Normal Yellow [facility] Comment on above: Performed By: #### L [id number] #### [facility] [address] [place] [address] Glucose (U) [Mass/Vol] mg/dL Abnormal [facility]: Performed By: #### L [id number] #### [facility] [address] [place] [address] HEMOGLOBIN PRESENCE IN URINE Moderate Abnormal Negative [facility] Comment on above: Performed By: #### L [id number] #### [facility] [address] [place] [address] Ketones Ql (U) Trace Abnormal Negative [facility] Comment on above: Performed By: #### L [id number] #### [facility] [address] [place] [address] LEUKOCYTE ESTERASE PRESENCE IN URINE BY TEST STRIP Negative Normal Negative [facility] Comment on above: Performed By: #### L [id number] #### [facility] [address] [place] [address] NITRITE PRESENCE IN URINE Negative Normal Negative [facility] Comment on above: Performed By: #### L [id number] #### [facility] [address] [place] [address] pH (U) 5.0 [pH] Normal 5.0-8.0 [facility] Comment on above: Performed By: #### L [id number] #### [facility] [address] [place] [address] Protein (U) [Mass/Vol] 30 mg/dL Abnormal Negative [facility] Comment on above: Performed By: #### L [id number] #### [facility] [address] [place] [address] Specific gravity (U) [Rel density] 1.028 High 1.015-1.020 [facility] Comment on above: Performed By: #### L [id number] #### [facility] [address] [place] [address] VITAMIN B12on 04-29-2023 Cobalamin (Vitamin B12) [Mass/Vol] 512 pg/mL Normal 180-914 [facility] Comment on above: Result Comment: REFE RENCE RANGES: 180-914 pg/mL Normal 145-179 pg/mL Indeterminate <145 pg/mL Deficient Performed By: #### L [id number] #### [facility] [address] [place] [address] 30on 04-28-2023 30 The patient is Moder [...] to discharge with patient and caregiver Normal [facility] BASIC METABOLIC PANELon 08-0 Anion gap [Moles/Vol] 12 mmol/L Normal 7-20 [facility] Comment on above: Performed By: #### L [id number] #### [facility] ([facility] [address] [place] [address] Calcium [Mass/Vol] 9.2 mg/dL Normal 8.6-10.3 [facility] Comment on above: Performed By: #### L [id number] #### [facility] ([facility]) [address] [place] [address] Chloride [Moles/Vol] 106 mmol/L Normal 98-107 [facility] Comment on above: Performed By: #### L [id number] #### [facility]) [address] [place] [address] CO2 [Moles/Vol] 25 mmol/L Normal 21-31 [facility] Comment on above: Performed By: #### L [id number] #### [facility] ([facility]) [address] [place] [address] Creatinine [Mass/Vol] 0.64 mg/dL Normal 0.60-1.20 [facility] Comment on above: Performed By: #### L [id number] #### [facility] [address] [place] [address] GLOMERULAR FILTRATION RATE ML/MIN/1.73 SQ M.PREDICTED 96.8 mL/min/1.73m*2 Normal >60.0 [facility] Comment on above: Result Comment: The [facility]???s estimated glomerular filtration rate (eGFR) [...] individuals. Performed By: #### L [id number] #### [facility] [address] [place] [address] Glucose [Mass/Vol] 163 mg/dL High 70-100 [facility] Comment on above: Performed By: #### L [id number] #### [facility] [address] [place] [address] Potassium [Moles/Vol] 3.8 mmol/L Normal 3.5-5.1 [facility] Comment on above: Performed By: #### L [id number] #### [facility] [address] [place] [address] Sodium [Moles/Vol] 139 mmol/L Normal 136-145 [facility] Comment on above: Performed By: #### L [id number] #### [facility] [address] [place] [address] Urea nitrogen [Mass/Vol] 14 mg/dL Normal 7-25 [facility] Comment on above: Performed By: #### L [id number] #### [facility] [address] [place] [address] UREA NITROGEN/CREATININE (MASS RATIO) IN SER/PLAS 21.9 Normal [facility] Comment on above: Performed By: #### L [id number] #### [facility] [address] [place] [address] CBCon 04-28-2023 Erythrocyte distribution width (RBC) [Ratio] 13.4 % Normal 11.5-15.0 [facility] Comment on above: Performed By: #### L [id number] #### [facility] [address] [place] [address] ERYTHROCYTE MEAN CORPUSCULAR HEMOGLOBIN CONCENTRATION (G/DL) BY AUTOMATED 34.0 g/dL Normal 32.0-35.0 [facility] Comment on above: Performed By: #### L [id number] #### [facility] [address] [place] [address] Hematocrit (Bld) [Volume fraction] 37.1 % Normal 36.0-48.0 [facility] Comment on above: Performed By: #### L [id number] #### [facility] [address] [place] [address] Hemoglobin (Bld) [Mass/Vol] 12.6 g/dL Normal 12.0-15.0 [facility] Comment on above: Performed By: #### L [id number] #### [facility] [address] [place] [address] MCH (RBC) [Entitic mass] 28.2 pg Normal 27.0-33.0 [facility] Comment on above: Performed By: #### L [id number] #### [facility] [address] [place] [address] MCV (RBC) [Entitic vol] 83.0 fL Normal 82.0-98.0 [facility] Comment on above: Performed By: #### L [id number] #### [facility] [address] [place] [address] PLATELETS (10*3/UL) IN BLOOD AUTOMATED COUNT 313 10*3/uL Normal 150-400 [facility] Comment on above: Performed By: #### L [id number] #### [facility] [address] [place] [address] RBC (Bld) [#/Vol] 4.47 10*6/uL Normal 3.80-5.00 [facility] Comment on above: Performed By: #### L [id number] #### [facility] [address] [place] [address] WBC (Bld) [#/Vol] 8.52 10*3/uL Normal 4.00-10.60 [facility] Comment on above: Performed By: #### L [id number] #### [facility] [address] [facility] [address] HEPARIN LEVELon 04-28-2023 HEPARIN UNFRACTIONATED (U/ML) IN PPP BY CHROMOGENIC METHOD 0.30 IU/mL Normal 0.3-0.7 [facility] Comment on above: Result Comment: [place] roxaban and Apixaban will interfere with the anti Xa assay used to monitor UFH and LMWH. Performed By: #### L [id number] #### [facility] ([facility]) [address] [place] [address] HEPARIN UNFRACTIONATED (U/ML) IN PPP BY CHROMOGENIC METHOD 0.43 IU/mL Normal 0.3-0.7 [facility] Comment on above: Result Comment: [place] roxaban and Apixaban will interfere with the anti Xa assay used to monitor UFH and LMWH. Performed By: #### L [id number] ####[facility] ([facility])[address] [place] [address] MAGNESIUMon 04-28-2023 Magnesium [Mass/Vol] 1.2 mg/dL Low 1.9-2.7 [facility] Comment on above: Performed By: #### L [id number] #### [facility] [address] [place] [address] NURSNOTEon 04-28-2023 NURSNOTE Pt Hr reaching betwe en 100-115, cardio fellow made aware as well as primary. Normal [facility] NURSNOTE Primary made aware o f 1.2 mag, loss of IV access again, picc paged. Normal [facility] NURSNOTE IV access lost, prim geoffrey made aware, picc paged. Normal [facility] POCT GLUCOSE METER UNSOLICIT ED RESULTSon 04-28-2023 Glucose [Mass/Vol] 205 mg/dL High 70-105 [facility] Comment on above: Order Comment: Waive d Testing in the ED is performed under the ED CLIA certificate #[id number]. Result Comment: atru ss Performed By: #### L [id number] #### [facility] [address] [place] [address] Glucose [Mass/Vol] 223 mg/dL High 70-105 [facility] Comment on above: Order Comment: Waive d Testing in the ED is performed under the ED CLIA certificate #[id number]. Result Comment: [email or web address] Performed By: #### L [id number] ####[facility] [address] Glucose [Mass/Vol] 185 mg/dL High 70-105 [facility] Comment on above: Order Comment: Waive d Testing in the ED is performed under the ED CLIA certificate #[id number]. Result Comment: [email or web address] Performed By: #### L [id number] #### [facility] [address] [place] [address] Glucose [Mass/Vol] 146 mg/dL High 70-105 [facility] Comment on above: Order Comment: Waive d Testing in the ED is performed under the ED CLIA certificate #[id number]. Result Comment: [email or web address] Performed By: #### L [id number] #### [facility] [address] [place] [address] 30on 04-27-2023 30 The patient is Moder [...] Assess for changes in respiratory status Normal [facility] B-TYPE NATRIURETIC PEPTIDEon 04-27-2023 Natriuretic peptide B (Bld) [Mass/Vol] 299 pg/mL High 0-100 [facility] Comment on above: Performed By: #### L [id number] #### [facility] ([facility]) [address] [place] [address] BASIC METABOLIC PANELon 08-0 Anion gap [Moles/Vol] 7 mmol/L Normal 7-20 [facility] Comment on above: Performed By: #### L [id number] #### [facility] [address] [place] [address] Calcium [Mass/Vol] 7.9 mg/dL Low 8.6-10.3 [facility] Comment on above: Performed By: #### L [id number] #### [facility]) [address] [place] [address] Chloride [Moles/Vol] 111 mmol/L High 98-107 [facility] Comment on above: Performed By: #### L [id number] #### [facility]) [address] [place] [address] CO2 [Moles/Vol] 25 mmol/L Normal 21-31 [facility] Comment on above: Performed By: #### L [id number] #### [facility] ([facility]) [address] [place] [address] Creatinine [Mass/Vol] 0.63 mg/dL Normal 0.60-1.20 [facility] Comment on above: Performed By: #### L [id number] #### [facility]) [address] [place] [address] GLOMERULAR FILTRATION RATE ML/MIN/1.73 SQ M.PREDICTED 97.2 mL/min/1.73m*2 Normal >60.0 [facility] Comment on above: Result Comment: [facility]???s estimated glomerular filtration rate (eGFR) [...] group of individuals. Performed By: #### L [id number] #### [facility] [address] [place] [address] Glucose [Mass/Vol] 134 mg/dL High 70-100 [facility] Comment on above: Performed By: #### L [id number] #### [facility] [address] [place] [address] Potassium [Moles/Vol] 3.4 mmol/L Low 3.5-5.1 [facility] Comment on above: Performed By: #### L [id number] #### [facility] [address] [place] [address] Sodium [Moles/Vol] 140 mmol/L Normal 136-145 [facility] Comment on above: Performed By: #### L [id number] #### [facility] [address] [place] [address] Urea nitrogen [Mass/Vol] 9 mg/dL Normal 7-25 [facility] Comment on above: Performed By: #### L [id number] #### [facility] [address] [place] [address] UREA NITROGEN/CREATININE (MASS RATIO) IN SER/PLAS 14.3 Normal [facility] Comment on above: Performed By: #### L [id number] #### [facility] [address] [place] [address] CBCon 04-27-2023 Erythrocyte distribution width (RBC) [Ratio] 13.4 % Normal 11.5-15.0 [facility] Comment on above: Performed By: #### L [id number] ####[facility] ([facility])[address] [place] [address] ERYTHROCYTE MEAN CORPUSCULAR HEMOGLOBIN CONCENTRATION (G/DL) BY AUTOMATED 33.1 g/dL Normal 32.0-35.0 [facility] Comment on above: Performed By: #### L [id number] ####[facility] ([facility])[address] [place] [place] [address] Hematocrit (Bld) [Volume fraction] 35.3 % Low 36.0-48.0 [facility] Comment on above: Performed By: #### L [id number] ####[facility] ([facility])[address] [place] [address] Hemoglobin (Bld) [Mass/Vol] 11.7 g/dL Low 12.0-15.0 [facility] Comment on above: Performed By: #### L [id number] ####[facility] ([facility])[address] [place] [address] MCH (RBC) [Entitic mass] 28.3 pg Normal 27.0-33.0 [facility] Comment on above: Performed By: #### L [id number] ####[facility] ([facility])[address] [place] [address] MCV (RBC) [Entitic vol] 85.3 fL Normal 82.0-98.0 [facility] Comment on above: Performed By: #### L [id number] ####[facility] ([facility])[address] [place] [address] PLATELETS (10*3/UL) IN BLOOD AUTOMATED COUNT 296 10*3/uL Normal 150-400 [facility] Comment on above: Performed By: #### L [id number] ####[facility] ([facility])[address] [place] [address] RBC (Bld) [#/Vol] 4.14 10*6/uL Normal 3.80-5.00 [facility] Comment on above: Performed By: #### L [id number] ####[facility] ([facility])[address] [place] [address] WBC (Bld) [#/Vol] 7.50 10*3/uL Normal 4.00-10.60 [facility] Comment on above: Performed By: #### L [id number] ####[facility] ([facility])[address] [place] [address] HEPARIN LEVELon 04-27-2023 HEPARIN UNFRACTIONATED (U/ML) IN PPP BY CHROMOGENIC METHOD 0.50 IU/mL Normal 0.3-0.7 [facility] Comment on above: Result Comment: [place] roxaban and Apixaban will interfere with the anti Xa assay used to monitor UFH and LMWH. Performed By: #### L [id number] ####[facility] ([facility])[address] [place] [address] HEPARIN UNFRACTIONATED (U/ML) IN PPP BY CHROMOGENIC METHOD 0.81 IU/mL High 0.3-0.7 [facility] Comment on above: Result Comment: [place]ol[place] roxaban and Apixaban will interfere with the anti Xa assay used to monitor UFH and LMWH. Performed By: #### L [id number] #### [facility] [address] [place] [address] HEPARIN UNFRACTIONATED (U/ML) IN PPP BY CHROMOGENIC METHOD 0.81 IU/mL High 0.3-0.7 [facility] Comment on above: Order Comment: Waive d Testing in the ED is performed under the ED CLIA certificate #[id number]. Result Comment: [place] roxaban and Apixaban will interfere with the anti Xa assay used to monitor UFH and LMWH. Performed By: #### L [id number] #### [facility]) [address] [place] [address] HEPARIN UNFRACTIONATED (U/ML) IN PPP BY CHROMOGENIC METHOD 0.56 IU/mL Normal 0.3-0.7 [facility] Comment on above: Order Comment: Waive d Testing in the ED is performed under the ED CLIA certificate #[id number]. Result Comment: M[place]ank roxaban and Apixaban will interfere with the anti Xa assay used to monitor UFH and LMWH. Performed By: #### L [id number] #### [facility] [address] [place] [address] MAGNESIUMon 04-27-2023 Magnesium [Mass/Vol] 1.3 mg/dL Low 1.9-2.7 [facility] Comment on above: Performed By: #### L [id number] #### [facility] [address] [place] [address] NURSNOTEon 04-27-2023 NURSNOTE Nurse informed pili davis work In regards to APS being called on pt prior to admission to [facility]. Social currently looking into it for any need for plan or action. [facility] NURSNOTE Nurse informed pili davis work In regards to APS being called on pt prior to admission to [facility]. Social currently looking into it for any need for plan or action. [facility] NURSNOTE Call to lab regardin g Heparin level drawn at 2346. Per lab, sample currently spinning and will have results in approximately 15 minutes. [facility] NURSNOTE Lab called regarding missing Heparin level ordered for 2100. Per lab, will send it program auditor to draw now. [facility] POCT GLUCOSE METER UNSOLICIT ED RESULTSon 04-27-2023 Glucose [Mass/Vol] 174 mg/dL High 70-105 [facility] Comment on above: Order Comment: Waive d Testing in the ED is performed under the ED CLIA certificate #[id number]. Result Comment: [email or web address] Performed By: #### L [id number] #### [facility] [address] [place] [address] Glucose [Mass/Vol] 235 mg/dL High 70-105 [facility] Comment on above: Order Comment: Waive d Testing in the ED is performed under the ED CLIA certificate #[id number]. Result Comment: acar [email or web address] Performed By: #### L [id number] ####[facility] ([facility])[address] [place] [address] Glucose [Mass/Vol] 134 mg/dL High 70-105 [facility] Comment on above: Order Comment: Waive d Testing in the ED is performed under the ED CLIA certificate #[id number]. Result Comment: acar r12 Performed By: #### L [id number] ####[facility] ([facility])[address] [place] [address] Glucose [Mass/Vol] 129 mg/dL High 70-105 [facility] Comment on above: Order Comment: Waive d Testing in the ED is performed under the ED CLIA certificate #[id number]. Result Comment: [email or web address] Performed By: #### L [id number] ####[facility] ([facility])[address] [place] [address] Glucose [Mass/Vol] 175 mg/dL High 70-105 [facility] Comment on above: Order Comment: Waive d Testing in the ED is performed under the ED CLIA certificate #[id number]. Result Comment: [email or web address] [email or web address] Performed By: #### L [id number] ####[facility] ([facility])[address] [place] [address] TROPONIN Ion 04-27-2023 Troponin I.cardiac [Mass/Vol] 1.17 ng/mL Critically high 0.00-0.04 [facility] Comment on above: Result Comment: Prev ious result verified on 04/27/2023 0213 on specimen/case [id number] called with component Troponin I for procedure Troponin I with value 1.59 ng/mL. Performed By: #### L [id number] #### [facility] ([facility]) [address] [place] [address] Troponin I.cardiac [Mass/Vol] 1.59 ng/mL Critically high 0.00-0.04 [facility] Comment on above: Result Comment: Prev ious result verified on 04/26/2023 1845 on specimen/case [id number] called with component Troponin I for procedure Troponin I with value 2.45 ng/mL. Performed By: #### L [id number] #### [facility] ([facility]) [address] [place] [address] 30on 04-26-2023 30 Problem: Pain - Adul [...] for the shift include monitor labs/vitals Normal [facility] 04-26-2023 ACTIVATED PARTIAL THROMBOPLASTIN TIME IN PPP BY COAGULATION ASSAY 65.1 Seconds High 25.0-35.0 [facility] Comment on above: Order Comment: Basel ine aPTT before initiating heparin infusion. Result Comment: Clin ical significance of the APTT is questionable in the presence of heparin. Performed By: #### L [id number] #### [facility] ([facility]) [address] [place] [address] BILIRUBIN, DIRECTon 04-26-20 Magnesium [Mass/Vol] 0.1 mg/dL Normal 0-0.2 [facility] Comment on above: Performed By: #### L [id number] #### [facility] ([facility] [address] [place] [address] CBC WITH AUTO DIFFERENTIALon 04-26-2023 Basophils (Bld) [#/Vol] 0.04 10*3/uL Normal 0.00-0.20 [facility] Comment on above: Performed By: #### L [id number] #### [facility] ([facility]) [address] [place] [address] Basophils/100 WBC (Bld) 0.6 % Normal 0.0-1.0 [facility] Comment on above: Performed By: #### L [id number] #### [facility] ([facility]) [address] [place] [address] Eosinophils (Bld) [#/Vol] 0.24 10*3/uL Normal 0.00-0.50 [facility] Comment on above: Performed By: #### L [id number] #### [facility]) [address] [place] [address] Eosinophils/100 WBC (Bld) 3.3 % Normal 0.0-6.0 [facility] Comment on above: Performed By: #### L [id number] #### [facility] ([facility]) [address] [place] [address] Erythrocyte distribution width (RBC) [Ratio] 13.7 % Normal 11.5-15.0 [facility] Comment on above: Performed By: #### L [id number] #### [facility] ([facility]) [address] [place] [address] ERYTHROCYTE MEAN CORPUSCULAR HEMOGLOBIN CONCENTRATION (G/DL) BY AUTOMATED 33.7 g/dL Normal 32.0-35.0 [facility] Comment on above: Performed By: #### L [id number] #### [facility] ([facility]) [address] [place] [address] Hematocrit (Bld) [Volume fraction] 35.6 % Low 36.0-48.0 [facility] Comment on above: Performed By: #### L [id number] #### [facility] ([facility]) [address] [place] [address] Hemoglobin (Bld) [Mass/Vol] 12.0 g/dL Normal 12.0-15.0 [facility] Comment on above: Performed By: #### L [id number] #### [facility] ([facility]) [address] [place] [address] Immature granulocytes (Bld) [#/Vol] 0.07 10*3/uL Normal 0.00-0.20 [facility] Comment on above: Performed By: #### L [id number] #### [facility] ([facility]) [address] [place] [address] Immature granulocytes/100 WBC (Bld) 1.0 % Normal 0.0-1.0 [facility] Comment on above: Performed By: #### L [id number] #### [facility] ([facility]) [address] [place] [address] Lymphocytes (Bld) [#/Vol] 1.66 10*3/uL Normal 1.20-4.00 [facility] Comment on above: Performed By: #### L [id number] #### [facility] (BEAKER) [address] [place] [address] Lymphocytes/100 WBC (Bld) 23.0 % Normal 20.0-45.0 [facility] Comment on above: Performed By: #### L [id number] #### [facility] ([facility]ER) [address] [place] [address] MCH (RBC) [Entitic mass] 28.6 pg Normal 27.0-33.0 [facility] Comment on above: Performed By: #### L [id number] #### [facility] (BANNER) [address] [place] [address] MCV (RBC) [Entitic vol] 84.8 fL Normal 82.0-98.0 [facility] Comment on above: Performed By: #### L [id number] #### [facility] ([facility]) [address] [place] [address] Monocytes (Bld) [#/Vol] 0.83 10*3/uL Normal 0.10-1.00 [facility] Comment on above: Performed By: #### L [id number] #### [facility] ([facility]) [address] [place] [address] Monocytes/100 WBC (Bld) 11.5 % Normal 5.0-12.0 [facility] Comment on above: Performed By: #### L [id number] #### [facility] ([facility]) [address] [place] [address] Neutrophils (Bld) [#/Vol] 4.37 10*3/uL Normal 1.60-7.60 [facility] Comment on above: Performed By: #### L [id number] #### [facility] ([facility]) [address] [place] [address] Neutrophils/100 WBC (Bld) 60.6 % Normal 40.0-72.0 [facility] Comment on above: Performed By: #### L [id number] #### [facility] ([facility]) [address] [place] [address] NRBC (PER 100 WBCS) BY AUTOMATED COUNT 0.0 % Normal 0 [facility] Comment on above: Performed By: #### L [id number] #### [facility] [address] [place] [address] PLATELETS (10*3/UL) IN BLOOD AUTOMATED COUNT 301 10*3/uL Normal 150-400 [facility] Comment on above: Performed By: #### L [id number] #### [facility] ([facility]) [address] [place] [address] RBC (Bld) [#/Vol] 4.20 10*6/uL Normal 3.80-5.00 [facility] Comment on above: Performed By: #### L [id number] #### [facility] ([facility]) [address] [place] [address] WBC (Bld) [#/Vol] 7.21 10*3/uL Normal 4.00-10.60 [facility] Comment on above: Performed By: #### L [id number] #### [facility] ([facility]) [address] [place] [address] CKon 04-26-2023 CREATINE KINASE (U/L) IN SER/PLAS 396.0 U/L High 30.0-223.0 [facility] Comment on above: Performed By: #### L [id number] #### [facility] ([facility]) [address] [place] [address] COMPREHENSIVE METABOLIC PANE Cedric 04-26-2023 Albumin [Mass/Vol] 3.0 g/dL Low 3.5-5.7 [facility] Comment on above: Performed By: #### L [id number] #### [facility] ([facility]) [address] [place] [address] ALP [Catalytic activity/Vol] 63 U/L Normal 34-104 [facility] Comment on above: Performed By: #### L [id number] #### [facility] ([facility]) [address] [place] [address] ALT [Catalytic activity/Vol] 17 U/L Normal 7-52 [facility] Comment on above: Performed By: #### L [id number] #### [facility] ([facility]) [address] [place] [address] Anion gap [Moles/Vol] 10 mmol/L Normal 7-20 [facility] Comment on above: Performed By: #### L [id number] #### [facility] ([facility]) [address] [place] [address] AST [Catalytic activity/Vol] 41 U/L High 13-39 [facility] Comment on above: Performed By: #### L [id number] #### [facility] ([facility]) [address] [place] [address] Bilirubin [Mass/Vol] 0.3 mg/dL Normal 0.3-1.0 [facility] Comment on above: Performed By: #### L [id number] #### [facility] ([facility]) [address] [place] [address] Calcium [Mass/Vol] 8.4 mg/dL Low 8.6-10.3 [facility] Comment on above: Performed By: #### L [id number] #### [facility] ([facility]) [address] [place] [address] Chloride [Moles/Vol] 110 mmol/L High 98-107 [facility] Comment on above: Performed By: #### L [id number] #### [facility] ([facility]) [address] [place] [address] CO2 [Moles/Vol] 25 mmol/L Normal 21-31 [facility] Comment on above: Performed By: #### L [id number] #### [facility] ([facility]) [address] [place] [address] Creatinine [Mass/Vol] 0.70 mg/dL Normal 0.60-1.20 [facility] Comment on above: Performed By: #### L [id number] #### [facility] ([facility]) [address] [place] [address] GLOMERULAR FILTRATION RATE ML/MIN/1.73 SQ M.PREDICTED 94.7 mL/min/1.73m*2 Normal >60.0 [facility] Comment on above: Result Comment: [employer] [...] individuals. Performed By: #### L [id number] #### [facility] ([facility]) [address] [place] [address] Glucose [Mass/Vol] 75 mg/dL Normal 70-100 [facility] Comment on above: Performed By: #### L [id number] #### [facility] ([facility]) [address] [place] [address] Potassium [Moles/Vol] 3.5 mmol/L Normal 3.5-5.1 [facility] Comment on above: Performed By: #### L [id number] #### [facility] ([facility]) [address] [place] [address] Protein [Mass/Vol] 5.6 g/dL Low 6.0-8.3 [facility] Comment on above: Performed By: #### L [id number] #### [facility] ([facility]) [address] [place] [address] Sodium [Moles/Vol] 141 mmol/L Normal 136-145 [facility] Comment on above: Performed By: #### L [id number] #### [facility] [address] [place] [address] Urea nitrogen [Mass/Vol] 12 mg/dL Normal 7-25 [facility] Comment on above: Performed By: #### L [id number] #### [facility] ([facility]) [address] [place] [address] UREA NITROGEN/CREATININE (MASS RATIO) IN SER/PLAS 17.1 Normal [facility] Comment on above: Performed By: #### L [id number] #### [facility] (DANIELLE) [address] [place] [address] CONSULTon 04-26-2023 CONSULT ------ -- Attestation signed [...] Teaching Physician's Revisions: none Ofe Little MD [place] [facility] -- Reason For Consult NSTEMI, direct transfer, communicated earlier [employer], 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 female who was admittied initailly at [place] for NSTEMI. PMHx of CAD s/p CABG x4 (PARKER-LAD, L radial-OM 1, SVG-OM2, SVG-PDA) in 05/07/2017, HLD, smoker, HFmrEF, unable to reliably assess NYHA at this point, diabetes mellitus. Patient had initially presented to [place] by ambulance after he was found on [...] q8h PRN (more content not included)... Normal [facility] HEMOGLOBIN A1Con 04-26-2023 Glucose [Mass/Vol] 212 mg/dL Normal [facility] Comment on above: Performed By: #### L [id number] #### [facility] ([facility]AKER) [address] [place] [address] HbA1c (Bld) [Mass fraction] 9.0 % High 4.0-6.0 [facility] Comment on above: Performed By: #### L [id number] #### [facility] ([facility]ER) [address] [place] [address] HEPARIN LEVELon 04-26-2023 HEPARIN UNFRACTIONATED (U/ML) IN PPP BY CHROMOGENIC METHOD 0.27 IU/mL Low 0.3-0.7 [facility] Comment on above: Order Comment: Basel ine aPTT before initiating heparin infusion. Result Comment: Jolanta roxaban and Apixaban will interfere with the anti Xa assay used to monitor UFH and LMWH. Performed By: #### L [id number] #### [facility] ([facility]NER) [address] [place] [address] LIPID PANELon 04-26-2023 CHOL/HDL 2.5 mg/dL Normal [facility] Comment on above: Performed By: #### L [id number] #### [facility] ([facility]) [address] [place] [address] Cholesterol [Mass/Vol] 85 mg/dL Low 120-200 Un [facility] Comment on above: Performed By: #### L [id number] #### [facility] ([facility]) [address] [place] [address] Magnesium [Mass/Vol] 67 mg/dL Normal 40-149 [facility] Comment on above: Result Comment: TRIG LYCERIDE REFERENCE RANGE: 20 YEARS AND OLDER CARDIOVASCULAR RISK LESS THAN 150 mg/dL LOW RISK 150 TO 199 mg/dL BORDERLINE RISK 200 mg/dL AND GREATER HIGH RISK Performed By: #### L [id number] #### [facility] ([facility]) [address] [place] [address] Magnesium [Mass/Vol] 38 mg/dL Normal 0-160 [facility] Comment on above: Performed By: #### L [id number] #### [facility] [address] [place] [address] Magnesium [Mass/Vol] 34 mg/dL Normal 23-92 [facility] Comment on above: Performed By: #### L [id number] #### [facility] ([facility]) [address] [place] [address] NON HDL CHOL. (LDL+VLDL) 51 Normal [facility] Comment on above: Performed By: #### L [id number] #### [facility] ([facility]) [address] [place] [address] TOTAL VLDL-C 13 mg/dL Normal 0-40 [facility] Comment on above: Performed By: #### L [id number] #### [facility] ([facility]) [address] [place] [address] MAGNESIUMon 04-26-2023 Magnesium [Mass/Vol] 0.6 mg/dL Invalid Interpretation Code 1.9-2.7 [facility] Comment on above: Performed By: #### L [id number] #### [facility] ([facility]) [address] [place] [address] NURSNOTEon 04-26-2023 NURSNOTE Critical trop 2.45 a nd mag 0.6 reported by lab, admitting MD made aware. No current orders. Normal [facility] NURSNOTE Labs ordered at 1400 , nurse called lab x4 as no current labs completed. Nurse assured labs will be drawn shortly. Normal [facility] POCT GLUCOSE METER UNSOLICIT ED RESULTSon 04-26-2023 Glucose [Mass/Vol] 78 mg/dL Normal 70-105 [facility] Comment on above: Order Comment: Waive d Testing in the ED is performed under the ED CLIA certificate #[id number]. Result Comment: [email or web address] [email or web address] Performed By: #### L [id number] #### [facility] ([facility]) [address] [place] [address] Glucose [Mass/Vol] 70 mg/dL Normal 70-105 [facility] Comment on above: Order Comment: Waive d Testing in the ED is performed under the ED CLIA certificate #[id number]. Result Comment: [email or web address] [email or web address] Performed By: #### L [id number] #### [facility] ([facility]) [address] [place] [address] Glucose [Mass/Vol] 62 mg/dL Low 70-105 [facility] Comment on above: Order Comment: Waive d Testing in the ED is performed under the ED CLIA certificate #[id number]. Result Comment: [email or web address] [email or web address] Performed By: #### L [id number] ####[facility] [place] [address] TROPONIN Ion 04-26-2023 Troponin I.cardiac [Mass/Vol] 2.45 ng/mL Critically high 0.00-0.04 [facility] Comment on above: Performed By: #### L [id number] #### [facility] ([facility]) [address] [place] [address] TSH3 REFLEX TO FT4on 023 THYROTROPIN (MIU/L) IN SER/PLAS BY DETECTION LIMIT <= 0.05 MIU/L 1.82 mIU/L Normal 0.34-5.60 [facility] Comment on above: Performed By: #### L [id number] #### [facility] ([facility]) [address] [place] [address] Basic Metabolic Panelon 02-21 Anion gap [Moles/Vol] 9 mmol/L 9 - 17 mmol/L [facility] Calcium [Mass/Vol] 8.8 mg/dL 8.6 - 10. 4 mg/dL [facility] Chloride [Moles/Vol] 106 mmol/L 98 - 10 7 mmol/L [facility] CO2 [Moles/Vol] 25 mmol/L 20 - 31 mmol/L [facility] Creatinine [Mass/Vol] 0.83 mg/dL 0.50 - 0.90 mg/dL [facility] GFR/1.73 sq M.predicted MDRD (S/P/Bld) [Vol rate/Area] - PINF [facility] Comment on above: These results are [...] 152 mg/dL High 70 - 99 mg/dL [facility] [employer] Interpretation and review of laboratory results Abnormal [facility] [employer] Potassium [Moles/Vol] 4.9 mmol/L 3.7 - 5.3 mmol/L [facility] Sodium [Moles/Vol] 140 mmol/L 135 - 144 mmol/L [facility] Urea nitrogen [Mass/Vol] 15 mg/dL 8 - 23 mg/dL [facility] Urea nitrogen/Creatinine [Mass ratio] 18 mg/mg 9 - 20 [facility] CBC with Auto Differentialon 03-11-2023 Basophils (Bld) [#/Vol] 0.04 10*3/uL [facility] Basophils/100 WBC (Bld) 0 % 0 - 2 % [facility] Eosinophils (Bld) [#/Vol] 0.17 10*3/uL [facility] Eosinophils/100 WBC (Bld) 2 % 1 - 4 % [facility] Erythrocyte distribution width (RBC) [Ratio] 13.2 % 11.8 - 14.4 % [facility] Hematocrit (Bld) [Volume fraction] 38.5 % 36.3 - 47.1 % [facility] Hemoglobin (Bld) [Mass/Vol] 12.5 g/dL 11.9 - 15.1 g/dL [facility] Immature granulocytes (Bld) [#/Vol] 0.10 10*3/uL [facility] Immature granulocytes/100 WBC (Bld) 1 % High 0 [facility] Interpretation and review of laboratory results Abnormal [facility] Lymphocytes/100 WBC (Bld) 19 % Low 24 - 43 % [facility] Lymphocytes/100 WBC (Bld) 1.88 % [facility] MCH (RBC) [Entitic mass] 29.1 pg 25.2 - 33.5 pg [facility] MCHC (RBC) [Mass/Vol] 32.5 g/dL 28.4 - 34.8 g/dL [facility] MCV (RBC) [Entitic vol] 89.7 fL 82.6 - 102.9 fL [facility] Monocytes/100 WBC (Bld) 9 % 3 - 12 % [facility] Monocytes/100 WBC (Bld) 0.90 % [facility] Neutrophils/100 WBC (Bld) 69 % High 36 - 65 % [facility] NRBC Automated 0.0 0.0 per 100 WBC [facility] Platelet mean volume (Bld) [Entitic vol] 10.2 fL 8.1 - 13.5 fL [facility] Platelets (Bld) [#/Vol] 327 10*3/uL [facility] RBC (Bld) [#/Vol] 4.29 10*6/uL 3.95 - 5.1 1 m/uL [facility] Segmented neutrophils/100 WBC (Bld) 6.72 % [facility] WBC other (Bld) [#/Vol] 9.8 [facility] Microscopic Urinalysison Bacteria LM Ql (Urine sed) 3+ Abnormal None [facility] Epithelial cells LM.HPF (Urine sed) [#/Area] 10 TO 20 [facility] Interpretation and review of laboratory results Abnormal [facility] RBC LM.HPF (Urine sed) [#/Area] 0 TO 2 [facility] WBC LM.HPF (Urine sed) [#/Area] 10 TO 20 [facility] Urinalysis with Reflex to Cu ltureon 03-11-2023 Bilirubin Ql (U) Negative NEGATIVE [facility] Clarity (U) Clear Clear [facility] Color (U) Yellow Yellow [facility] Glucose Test strip (U) [Mass/Vol] Negative NEGATIVE [facility] Hemoglobin Auto test strip Ql (U) Negative NEGATIVE [facility] Interpretation and review of laboratory results Abnormal [facility] Ketones (U) [Mass/Vol] Negative NEGATIVE [facility] Leukocyte esterase Test strip Ql (U) MODERATE Abnormal NEGATIVE [facility] Nitrite Ql (U) Positive Abnormal NEGATIVE [facility] pH (U) 7.5 [pH] 5.0 - 9.0 [facility] Protein (U) [Mass/Vol] 1+ Abnormal NEGATIVE [facility] Specific gravity (U) [Rel density] 1.015 1.010 - 1.020 [facility] Urobilinogen Qn (U) Normal Normal [facility] Cult,Urineon 03-09-2023 Cult,Urine Specimen Description .URINE Culture NO SIGNIFICANT GROWTH Report Status FINAL 03/09/2023 Normal [facility] Comment on above: Performed By: #### U RC #### [facility] [address] [place] [address] Painting Machine Operator: Joey Aguilar MD Laboratory - Microbiology an d Antimicrobial susceptibilityon 03-07-2023 Bacteria identified Cx Nom (U) See Note [facility] Comment on above: Note: Specimen Descr iption .URINECulture NO SIGNIFICANT GROWTHReport Status FINAL 03/09/2023Responsible Observer: KALEB KLEIN ([id number]) No Panel Informationon 03-07 Reported Physicians See Note [facility] Comment on above: Note: Reported Physi cians:Ordering: Sonya PosadaAttending: Meliton Posadaeferring: Sonya Psoada CT CSPINE WO CONon CT CSPINE WO CON Normal [facility] CT HEAD WO CONon 01-10-2023 CT HEAD WO CON Normal [facility] POINT OF CARE GLUCOSEon 12-23 Glucose [Mass/Vol] 177 mg/dL Critically high 74-106 [facility] Comment on above: Performed By: #### P OCGLUC ####[facility] [address] [place], [place] [address]Dx. Antonella Medrano XR KNEE RT 3Von 01-10-2023 XR KNEE RT 3V Normal [facility] XR WRIST LT MIN 3 Von 2022 XR WRIST LT MIN 3 V Normal [facility] CBC AUTO DIFFon 01-06-2023 BASO # 0.0 103/ul Normal 0.0-0.[address] [facility] Comment on above: Performed By: #### C BC ####[facility] [address] [place], [place] [address]Fk. Antonella Medrano Basophils/100 WBC (Bld) 0.4 % Normal 0.2-2.0 [facility] Comment on above: Performed By: #### C BC ####[facility] [address] [place] [address]Dr. Antonella Medrano EO # 0.2 103/ul Normal 0.0-0.7 [facility] Comment on above: Performed By: #### C BC ####[facility] [address] [place] [address]Dr. Antonella Medrano Eosinophils/100 WBC (Bld) 1.8 % Normal 0.9-7.[address] [facility] Comment on above: Performed By: #### C BC ####[facility] [address] [place], [place] [address]Dr. Antonella Medrano Erythrocyte distribution width (RBC) [Ratio] 13.9 % Normal 11.0-15.[address] [facility] Comment on above: Performed By: #### C BC ####[facility] [address] [place], [place] [address]Dr. Antonella Medrano Hematocrit (Bld) [Volume fraction] 36.0 % Normal 36.0-48.[address] [facility] Comment on above: Performed By: #### C BC ####[facility] [address] [place], [place] [address]Dr. Antonella Medrano Hemoglobin (Bld) [Mass/Vol] 12.2 g/dL Normal 12.0-16.[address] [facility] Comment on above: Performed By: #### C BC ####[facility] [address] [place], [place] [address]Dr. Antonella Medrano IG # 0.12 10e3/ul Critically high 0.00-0.03 [facility] Comment on above: Performed By: #### C BC ####[facility] [address] [place], [place] [address]Dr. Mariafilemon Medrano IG % 1.3 % Critically high 0.0-0.5 [facility] Comment on above: Performed By: #### C BC ####[facility] [address] [place], [place] [address]DrGerman Medrano LYMPH # 2.3 103/ul Normal 1.2-3.[address] [facility] Comment on above: Performed By: #### C BC ####[facility] [address] [place] [address]Dr. Antonella Medrano Lymphocytes/100 WBC (Bld) 25.8 % Normal 20.5-60.[address] [facility] Comment on above: Performed By: #### C BC ####[facility] [address] [place] [address]Dr. Antonella Medrano MANUAL DIFF REQ NO Normal [facility] Comment on above: Performed By: #### C BC ####[facility] [address] [place] [address]Dr. Antonella Medrano MCH (RBC) [Entitic mass] 30.0 pg Normal 26.7-34.0 [facility] Comment on above: Performed By: #### C BC ####[facility] [address] [place], [place] [address]Dr. Antonella Medrano MCHC (RBC) [Mass/Vol] 33.9 g/dL Normal 29.9-35.2 [facility] Comment on above: Performed By: #### C BC ####[facility] [address] [place], [place] [address]Dr. Antonella Medrano MCV (RBC) [Entitic vol] 88.5 fL Normal 81.0-99.0 [facility] Comment on above: Performed By: #### C BC ####[facility] [address] [place], [place] [address]Dr. Antonella Medrano MONO # 1.0 103/ul Critically high 0.3-0.8 [facility] Comment on above: Performed By: #### C BC ####[facility] [address] [place], [place] [address]DrGerman Medrano Monocytes/100 WBC (Bld) 10.6 % Normal 1.7-12.0 [facility] Comment on above: Performed By: #### C BC ####[facility] [address] [place], [place] [address]DrGerman Medrano NEUT # 5.4 103/ul Normal 1.4-6.5 [facility] Comment on above: Performed By: #### C BC ####[facility] [address] [place] [address]Dr. Antonella Medrano Neutrophils/100 WBC (Bld) 60.1 % Normal 43.0-75.[address] [facility] Comment on above: Performed By: #### C BC ####[facility] [address] [place] [address]Dr. Antonella Medrano Platelet mean volume (Bld) [Entitic vol] 10.6 fL Normal 9.5-13.[address] [facility] Comment on above: Performed By: #### C BC ####[facility] [address] [place] [address]Dr. Antonella Medrano PLT 306 103/ul Normal 150-[address] [facility] Comment on above: Performed By: #### C BC ####[facility] [address] [place] [address]Dr. Antonella Mitchell RBC 4.07 106/ul Critically low 4.20-5.[address] [facility] Comment on above: Performed By: #### C BC ####[facility] [address] [place] [address]Dr. Antonella Medrano WBC 9.0 103/ul Normal 4.0-11.[address] [facility] Comment on above: Performed By: #### C BC ####[facility] [address] [place] [address] CSPINE WO CONon 3 CT CSPINE WO CON Normal [facility] POINT OF CARE GLUCOSEon 12-22 Glucose [Mass/Vol] 101 mg/dL Normal 74-[address] [facility] Comment on above: Performed By: #### P OCGLUC ####[facility] [address] [place], [place] [address]Dr. Mariafilemon Medrano PROF 14(COMP METB)on 023 Albumin [Mass/Vol] 2.7 g/dL Critically low 3.4-5.0 [facility] Comment on above: Performed By: #### C MP, HSTROPN ####[facility] [address] [place] [address]Dr. Antonella Medrano Albumin/Globulin [Mass ratio] 0.8 {ratio} Normal [facility] Comment on above: Performed By: #### C MARLEY, HSTROPN ####[facility] [address] [place] [address]Dr. Antonella Medrano ALP [Catalytic activity/Vol] 95 U/L Normal 46-116 [facility] Comment on above: Performed By: #### C MARLEY, HSTROPN ####[facility] [address] [place] [address]Dr. Antonella Medrano ALT [Catalytic activity/Vol] 15 U/L Normal 14-[address] [facility] Comment on above: Performed By: #### C MARLEY, HSTROPN ####[facility] [address] [place] [address]Dr. Antonella Medrano Anion gap [Moles/Vol] 12.9 mmol/L Normal [facility] Comment on above: Performed By: #### C MARLEY, HSTROPN ####[facility] [address] [place] [address]Dr. Antonella Medrano AST [Catalytic activity/Vol] 13 U/L Critically low 15-[address] [facility] Comment on above: Performed By: #### C MARLEY, HSTROPN ####[facility] [address] [place] [address]Dr. Antonella Medrano Bilirubin [Mass/Vol] 0.2 mg/dL Normal 0.2-1.0 [facility] Comment on above: Performed By: #### C MARLEY, HSTROPN ####[facility] [id number] [place] [address]Dr. Antonella Medrano Calcium [Mass/Vol] 8.6 mg/dL Normal 8.5-10.[address] [facility] Comment on above: Performed By: #### C MARLEY, HSTROPN ####[facility] [id number] [place] [address]Dr. Antonella Medrano Chloride [Moles/Vol] 106 mmol/L Normal 98-107 [facility] Comment on above: Performed By: #### C MARLEY, HSTROPN ####[facility] Center [address] [place] [address]Dr. Antonella Medrano CO2 [Moles/Vol] 28.1 mmol/L Normal 21.0-32.0 [facility] Comment on above: Performed By: #### C MARLEY, HSTROPN ####[facility] Omzhavasfn[address] [place] [address]Dr. Mariafilemon Medrano Creatinine [Mass/Vol] 1.05 mg/dL Critically high 0.55-1.02 [facility] Comment on above: Performed By: #### C MARLEY, HSTROPN ####[facility] Hizmruafxn[address] [place], [place] [address]Dr. Antonella Mitchell EGFR-AF MALDIVIAN >60 Normal >=60 [facility] Comment on above: Performed By: #### C MARLEY, HSTROPN ####[facility] Ygokrffxsx[address] [place], [place] [address]Dr. Mariafilemon Medrano EGFR-NON AF MALDIVIAN 52 mL/min/1.73m2 Critically low >=60 [facility] Comment on above: Performed By: #### C MARLEY, HSTROPN ####[facility] Jrbplkayzz3288[address] [place], [place] [address]Dr. Mariafilemon Medrano Globulin (S) [Mass/Vol] 3.5 g/dL Normal [facility] Comment on above: Performed By: #### C MARLEY, HSTROPN ####[facility] Gbodnveqnr[address] [place] [address]Dr. Mariafilemon Medrano Glucose [Mass/Vol] 96 mg/dL Normal 74-106 [facility] Comment on above: Performed By: #### C MARLEY, HSTROPN ####[facility] Ordhkxiaoo[address] [place] [address]Dr. Antonella Medrano Potassium [Moles/Vol] 4.0 mmol/L Normal 3.5-5.1 [facility] Comment on above: Performed By: #### C MARLEY, HSTROPN ####[facility] Emkzhudpsd20[address] [place] [phone]. Antonella Medrano Protein [Mass/Vol] 6.2 g/dL Critically low 6.4-8.2 [facility] Comment on above: Performed By: #### C MP, HSTROPN ####[facility] Xdvphymwkw9[address] [place] [phone]. Antonella Medrano Sodium [Moles/Vol] 143 mmol/L Normal 136-145 [facility] Comment on above: Performed By: #### C MP, HSTROPN ####[facility] Ruwzebpxec0994 [place] [phone]. Antonella Medrano Urea nitrogen [Mass/Vol] 22.0 mg/dL Critically high 7.0-18.[address] [facility] Comment on above: Performed By: #### C MP, HSTROPN ####[facility] Gmvnszlsvl[address] [place] [address]Dr. Antonella Medrano Urea nitrogen/Creatinine [Mass ratio] 21.0 mg/mg Normal [facility] Comment on above: Performed By: #### C MP, HSTROPN ####[facility] Ayqlrfzuxk9[address] [place] [phone]. Antonella Medrano TROPONIN, HIGH SENSITIVITYon 01-06-2023 HSTROP 48.1 pg/mL Normal 4.0-51.[address] [facility] Comment on above: Result Comment: CUT- OFF POINTS HAVE BEEN ESTABLISHED BASED ON THE FOURTH UNIVERSAL DEFINITIONS OF MYOCARDIALINFARCTION. THE UPPER REFERENCE LIMIT (URL) OF TROPONIN, DEFINED THE 99TH PERCENTILE OFcTnI DISTRIBUTION IN A REFERENCE POPULATION, HAS BEEN CONFIRMED THE DECISION THRESHOLDFOR SC DIAGNOSIS. Performed By: #### C MP, HSTROPN ####[facility] Aojeiwecqy[address] [place] [address]Dr. Antonella Medrano XR PELVIS 1_2 VIEWSon 2022 XR PELVIS 1_2 VIEWS Normal [facility] XR SHOULDER LT 2V or >on XR SHOULDER LT 2V or > Normal [facility] CULTURE URINEon 01-03-2023 CULTURE URINE Culture Observations : GREATER THAN TWO ORGANISMS PRESENT. PLEASE RESUBMIT CLEAN CATCH MID-STREAM URINE IF CLINICALLY INDICATED. Normal [facility] Comment on above: Performed By: #### U RCX ####[facility] Oolufyomcd[address] [place] [address]Dr. Antonella Mitchell CBC AUTO DIFFon 01-02-2023 BASO # 0.0 103/ul Normal 0.0-0.1 [facility] Comment on above: Performed By: #### C BC ####[facility] Skzwvjlhgw26[address] [place], [place] [address]Dr. Antonella Medrano Basophils/100 WBC (Bld) 0.4 % Normal 0.2-2.0 [facility] Comment on above: Performed By: #### C BC ####[facility] Imbvwqadui69[address] [place], [place] [address]Dr. Antonella Medrano EO # 0.2 103/ul Normal 0.0-0.7 [facility] Comment on above: Performed By: #### C BC ####[facility] Yqorrjmilx[address] [place], [place] [address]Dr. Antonella Medrano Eosinophils/100 WBC (Bld) 3.0 % Normal 0.9-7.0 [facility] Comment on above: Performed By: #### C BC ####[facility] Wjcybsyoyt029[address] [place], [place] [address]Dr. Antonella Mitchell Erythrocyte distribution width (RBC) [Ratio] 14.0 % Normal 11.0-15.0 [facility] Comment on above: Performed By: #### C BC ####[facility] Uvppitcxir840[address] [place], [place] [address]Dr. Antonella Medrano Hematocrit (Bld) [Volume fraction] 37.5 % Normal 36.0-48.0 [facility] Comment on above: Performed By: #### C BC ####[facility] Uxgwrzbvlw[address] [place], [place] [address]Dr. Mariafilemon Mitchell Hemoglobin (Bld) [Mass/Vol] 12.1 g/dL Normal 12.0-16.0 [facility] Comment on above: Performed By: #### C BC ####[facility] Jgagjmvvpz45[address] [place] [address]Dr. Antonella Medrano IG # 0.10 10e3/ul Critically high 0.00-0.03 [facility] Comment on above: Performed By: #### C BC ####[facility] Jrkjxibmjt9931 [place] [address]DrGerman Antonella Mitchell IG % 1.3 % Critically high 0.0-0.[address] [facility] Comment on above: Performed By: #### C BC ####[facility] Byfigbraii638[address] [place], [place] [address]DrGerman Antonella Mitchell LYMPH # 2.1 103/ul Normal 1.2-3.8 [facility] Comment on above: Performed By: #### C BC ####[facility] Yduiuakard9[address] [place], [place] [address]DrGerman Mariafilemon Medrano Lymphocytes/100 WBC (Bld) 27.4 % Normal 20.5-60.0 [facility] Comment on above: Performed By: #### C BC ####[facility] Fkhemytctp74[address] [place], [place] [address]DrGerman Mariafilemon Medrano MANUAL DIFF REQ NO Normal [facility] Comment on above: Performed By: #### C BC ####[facility] Rxxosundta228[address] [place], [place] [address]DrGerman Antonella Mitchell MCH (RBC) [Entitic mass] 28.6 pg Normal 26.7-34.0 [facility] Comment on above: Performed By: #### C BC ####[facility] Bavymipvpw7332[address] [place], [place] [address]DrGerman Antonella Mitchell MCHC (RBC) [Mass/Vol] 32.3 g/dL Normal 29.9-35.2 [facility] Comment on above: Performed By: #### C BC ####[facility] Bjiudxyhvm0123[address] [place], [place] [address]DrGerman Antonella Mitchell MCV (RBC) [Entitic vol] 88.7 fL Normal 81.0-99.0 [facility] Comment on above: Performed By: #### C BC ####[facility] Mnigaqoptx339[address] [place], [place] [address]Dr. Antonella Medrano MONO # 0.7 103/ul Normal 0.3-0.8 [facility] Comment on above: Performed By: #### C BC ####[facility] Kafrkbalcw76[address] [place] [address]Dr. Antonella Medrano Monocytes/100 WBC (Bld) 8.6 % Normal 1.7-12.0 [facility] Comment on above: Performed By: #### C BC ####[facility] Yyislvemwy3184 [place] [address]Dr. Antonella Medrano NEUT # 4.6 103/ul Normal 1.4-6.5 [facility] Comment on above: Performed By: #### C BC ####[facility] Ysbktspfys95[address] [place] [address]Dr. Antonella Medrano Neutrophils/100 WBC (Bld) 59.3 % Normal 43.0-75.0 [facility] Comment on above: Performed By: #### C BC ####[facility] Zfkfqcqkuc[address] [place], [place] [address]Dr. Antonella Medrano Platelet mean volume (Bld) [Entitic vol] 9.9 fL Normal 9.5-13.5 [facility] Comment on above: Performed By: #### C BC ####[facility] Daosljwifm46[address] [place] [address]Dr. Antonella Medrano PLT 278 103/ul Normal 150-450 [facility] Comment on above: Performed By: #### C BC ####[facility] Gittkimtjj[address] [place] [address]Dr. Antonella Medrano RBC 4.23 106/ul Normal 4.20-5.40 [facility] Comment on above: Performed By: #### C BC ####[facility] Ttqcrwibbd1203 [place] [address]Dr. Antonella Medrano WBC 7.7 103/ul Normal 4.0-11.0 [facility] Comment on above: Performed By: #### C BC ####[facility] Xkemmwyhop[address] [place], [place] [address]Dr. Antonella Medrano MAGNESIUMon 01-02-2023 Magnesium [Mass/Vol] 1.3 mg/dL Critically low 1.8-2.[address] [facility] Comment on above: Performed By: #### M G ####[facility] Qjqemmqxbs722[address] [place], [place] [address]Dr. Antonella Medrano POINT OF CARE GLUCOSEon 12-22 Glucose [Mass/Vol] 307 mg/dL Critically high 74-106 [facility] Comment on above: Performed By: #### P OCGLUC ####[facility] Nsekolwval13[address] [place], [place] [address]Dr. Antonella Medrano Glucose [Mass/Vol] 242 mg/dL Critically high 74-106 [facility] Comment on above: Performed By: #### P OCGLUC ####[facility] Yxwoacioaq39[address] [place], [place] [address]Dr. Antonella Medrano PROF CHEM 8 (BAS METB)on Anion gap [Moles/Vol] 11.5 mmol/L Normal [facility] Comment on above: Performed By: #### B MP ####[facility] Ahpeuvpkbz53[address] [place], [place] [address]Dr. Antonella Medrano Calcium [Mass/Vol] 8.5 mg/dL Normal 8.5-10.[address] [facility] Comment on above: Performed By: #### B MP ####[facility] Zjovonedws[address] [place], [place] [address]Dr. Antonella Medrano Chloride [Moles/Vol] 106 mmol/L Normal 98-[address] [facility] Comment on above: Performed By: #### B MP ####[facility] Ftarzlrlkq[address] [place], [place] [address]Dr. Antonella Medrano CO2 [Moles/Vol] 25.8 mmol/L Normal 21.0-32.[address] [facility] Comment on above: Performed By: #### B MP ####[facility] Myiafdmpgo840[address] [place], [place] [address]Dr. Antonella Medrano Creatinine [Mass/Vol] 0.81 mg/dL Normal 0.55-1.[address] [facility] Comment on above: Performed By: #### B MP ####[facility] Gdsaziymmr0222 [place] [phone]. Antonella Medrano EGFR-AF MALDIVIAN >60 Normal >=[address] [facility] Comment on above: Performed By: #### B MP ####[facility] Lpzdduoanr907[address] [place], [place] [address]Dr. Antonella Medrano EGFR-NON AF MALDIVIAN >60 Normal >=[address] [facility] Comment on above: Performed By: #### B MP ####[facility] Hqtinsyjws59[address] [place] [address]Dr. Antonella Medrano Glucose [Mass/Vol] 185 mg/dL Critically high 74-106 [facility] Comment on above: Performed By: #### B MP ####[facility] Dkhknoiexj5934[address] [place], [place] [address]Dr. Antonella Medrano Potassium [Moles/Vol] 4.3 mmol/L Normal 3.5-5.[address] [facility] Comment on above: Performed By: #### B MP ####[facility] Zdaiapwgww194[address] [place], [place] [address]Dr. Antonella Medrano Sodium [Moles/Vol] 139 mmol/L Normal 136-145 [facility] Comment on above: Performed By: #### B MP ####[facility] Zpyaakkulv760[address] [place], [place] [address]Dr. Antonella Medrano Urea nitrogen [Mass/Vol] 17.0 mg/dL Normal 7.0-18.[address] [facility] Comment on above: Performed By: #### B MP ####[facility] Peknphydhi96[address] [place], [place] [address]Dr. Antonella Medrano Urea nitrogen/Creatinine [Mass ratio] 21.0 mg/mg Normal [facility] Comment on above: Performed By: #### B MP ####[facility] Keaqcqlfyn75[address] [place], [place] [address]Dr. Antonella Medrano CBC AUTO DIFFon 01-01-2023 BASO # 0.0 103/ul Normal 0.0-0.[address] [facility] Comment on above: Performed By: #### C BC ####[facility] Whnhbpnnjp4058 [place] [phone]. Antonella Medrano Basophils/100 WBC (Bld) 0.3 % Normal 0.2-2.0 [facility] Comment on above: Performed By: #### C BC ####[facility] Dsjutmhsga0271 [place] [phone]. Antonella Medrano EO # 0.1 103/ul Normal 0.0-0.7 [facility] Comment on above: Performed By: #### C BC ####[facility] Uujusmtasq4[address] [place] [address]Dr. Antonella Medrano Eosinophils/100 WBC (Bld) 1.4 % Normal 0.9-7.0 [facility] Comment on above: Performed By: #### C BC ####[facility] Mhqhgirlnz8[address] [place], [place] [address]Dr. Antonella Medrano Erythrocyte distribution width (RBC) [Ratio] 13.9 % Normal 11.0-15.0 [facility] Comment on above: Performed By: #### C BC ####[facility] [address]vx[address]iox[address] [place], [place] [address]Dr. Antonelal Medrano Hematocrit (Bld) [Volume fraction] 38.0 % Normal 36.0-48.0 [facility] Comment on above: Performed By: #### C BC ####[facility] Mivozntcko[address] [place], [place] [address]Dr. Antonella Medrano Hemoglobin (Bld) [Mass/Vol] 12.6 g/dL Normal 12.0-16.0 [facility] Comment on above: Performed By: #### C BC ####[facility] Lsimrnmjwq8671 [place] [phone]. Antonella Medrano IG # 0.15 10e3/ul Critically high 0.00-0.03 [facility] Comment on above: Performed By: #### C BC ####[facility] Agyufvrpdr4706 [place] [phone]. Antonella Medrano IG % 1.5 % Critically high 0.0-0.5 [facility] Comment on above: Performed By: #### C BC ####[facility] Oebfxmyzwh9686 [place] [address]Dr. Antonella Medrano LYMPH # 1.6 103/ul Normal 1.2-3.8 [facility] Comment on above: Performed By: #### C BC ####[facility] Qaiaiotwdj9671 [place], [place] [address]Kf. Antonella Medrano Lymphocytes/100 WBC (Bld) 15.5 % Critically low 20.5-60.0 [facility] Comment on above: Performed By: #### C BC ####[facility] Yynkvjufnn4042 [place] [phone]. Antonella Medrano MANUAL DIFF REQ NO Normal [facility] Comment on above: Performed By: #### C BC ####[facility] Adridkjzey9239 [place] [phone]. Antonella Medrano MCH (RBC) [Entitic mass] 29.5 pg Normal 26.7-34.0 [facility] Comment on above: Performed By: #### C BC ####[facility] Hkceecstjp0736 [place] [phone]. Antonella Medrano MCHC (RBC) [Mass/Vol] 33.2 g/dL Normal 29.9-35.2 [facility] Comment on above: Performed By: #### C BC ####[facility] Gvlvuwmyny4765 [place] [phone]. Antonella Medrano MCV (RBC) [Entitic vol] 89.0 fL Normal 81.0-99.0 [facility] Comment on above: Performed By: #### C BC ####[facility] Bzqmuwcmoo7956 [place] [phone]. Antonella Medrano MONO # 0.9 103/ul Critically high 0.3-0.8 [facility] Comment on above: Performed By: #### C BC ####[facility] Nbdgzekkim8288 [place] [phone]. Antonella Medrano Monocytes/100 WBC (Bld) 9.4 % Normal 1.7-12.0 [facility] Comment on above: Performed By: #### C BC ####[facility] Sfsifaprer4911 [place] [phone]. Antonella Medrano NEUT # 7.2 103/ul Critically high 1.4-6.5 [facility] Comment on above: Performed By: #### C BC ####[facility] Zwamawnzqn8893 [place] [phone]. Antonella Medrano Neutrophils/100 WBC (Bld) 71.9 % Normal 43.0-75.0 [facility] Comment on above: Performed By: #### C BC ####[facility] Kdjhrikxrx6761 [place] [phone]. Antonella Medrano Platelet mean volume (Bld) [Entitic vol] 9.8 fL Normal 9.5-13.5 [facility] Comment on above: Performed By: #### C BC ####[facility] Hggciwebkb7320 [place] [phone]. Antonella Medrano PLT 266 103/ul Normal 150-450 [facility] Comment on above: Performed By: #### C BC ####[facility] Jzxvzqiqhb8933 [place] [phone]. Antonella Medrano RBC 4.27 106/ul Normal 4.20-5.40 [facility] Comment on above: Performed By: #### C BC ####[facility] Ivibtoxpmu6216 [place] [phone]. Antonella Medrano WBC 10.0 103/ul Normal 4.0-11.0 [facility] Comment on above: Performed By: #### C BC ####[facility] Pazpoywcgs[address] [place], [place] [address]Dr. Antonella Medrano [facility]22 SARS-CoV-2 (COVID-19) RNA TAISHA+probe Ql (Unsp spec) Not detected Normal NOT DETECTED [facility] Comment on above: Result Comment: When diagnostic [...] for this test is supported by the [place] of Health and Human Service's declaration that [...] be used). Performed By: #### C VDTB ####[facility] Ememffyopi[address] [place], [place] [address]Dr. Antonella Medrano ER URINE PROFILEon 3 Bilirubin Ql (U) Negative Normal NEGATIVE [facility] Comment on above: Performed By: #### HALEY CLARK ####[facility] Zxsczyhdoa119[address] [place], [place] [address]Dr. Antonella Medrano Clarity (U) CLEAR Normal CLEAR [facility] Comment on above: Performed By: #### LATA CLARKRO ####[facility] Mwwthfassl[address] [place], [place] [address]Dr. Antonella Medrano Color (U) LT. YELLOW Normal YELLOW [facility] Comment on above: Performed By: #### LATA CLARKRO ####[facility] Tchkxisljo[address] [place], [place] [address]Dr. Antonella Medrano ERUAHD A micrscopic examina tion will be performed if indicated. Normal [facility] Comment on above: Performed By: #### LATA CLARKRO ####[facility] Dowqcdjfkd677[address] [place], [place] [address]Dr. Antonella Medrano Glucose Ql (U) 100 mg/dl Abnormal NEGATIVE [facility] Comment on above: Performed By: #### LATA CLARKRO ####[facility] Osjgwlobal36[address] [place], [place] [address]Dr. Antonella Medrano Hemoglobin Ql (U) TRACE-INTACT Abnormal NEGATIVE [facility] Comment on above: Performed By: #### HALEY CLARK ####[facility] Pgfjokvxmw9[address] [place] [address]Dr. Antonella Medrano Ketones Ql (U) Negative Normal NEGATIVE [facility] Comment on above: Performed By: #### HALEY CLARK ####[facility] Vtnpkvphii4288 [place] [address]Dr. Antonella Medrano LEUKOCYTES MODERATE Abnormal NEGATIVE [facility] Comment on above: Performed By: #### LATA CLARKRO ####[facility] Znojrtthzc1049 [place] [address]Dr. Antonella Medrano Nitrite Ql (U) Negative Normal NEGATIVE [facility] Comment on above: Performed By: #### HALEY CLARK ####[facility] Xlukvqbmne2984 [place] [address]Dr. Antonella Medrano pH (U) 5.5 [pH] Normal 5-9 [facility] Comment on above: Performed By: #### HALEY CLARK ####[facility] Tegzzphfps[address] [place], [place] [address]Dr. Antonella Medrano SPEC GRAVITY 1.010 Normal 1.005-<=1.[address] [place] [address] Comment on above: Performed By: #### HALEY CLARK ####[facility] Gbdszplcfc93[address] [place] [address]Dr. Antonella Medrano UA PROTEIN TRACE Normal NEGATIVE/ TRACE [facility] Comment on above: Performed By: #### HALEY CLARK ####[facility] Osrpxuxgoa[address] [place], [place] [address]Dr. Antonella Medrano UR MICRO IND INDICATED Normal [facility] Comment on above: Performed By: #### HALEY CLARK ####[facility] Hfllayovdf[address] [place], [place] [address]Dr. Antonella Medrano Urobilinogen Qn (U) 0.2 {Oleg'U}/dL Normal 0.2 - 1. [address] [facility] Comment on above: Performed By: #### HALEY CLARK ####[facility] Iiyiqzccay[address] [place] [address]Dr. Antonella Medrano MAGNESIUMon 01-01-2023 Magnesium [Mass/Vol] 0.9 mg/dL Critically low 1.8-2.[address] [facility] Comment on above: Performed By: #### M G ####[facility] Hgrtidyxkx0[address] [place] [address]Dr. Antonella Medrano POINT OF CARE GLUCOSEon 12-22 Glucose [Mass/Vol] 133 mg/dL Critically high 74-106 [facility] Comment on above: Performed By: #### P OCGLUC ####[facility] Oejicztffe[address] [place] [address]Dr. Antonella Medrano Glucose [Mass/Vol] 114 mg/dL Critically high 74-106 [facility] Comment on above: Performed By: #### P OCGLUC ####[facility] Uyucvzyvxd9[address] [place] [address]Dr. Antonella Medrano PROF 14(COMP METB)on 023 Albumin [Mass/Vol] 2.5 g/dL Critically low 3.4-5.0 [facility] Comment on above: Performed By: #### C MP ####[facility] Fmjjcrwbcc4946 [place] [address]Dr. Antonella Medrano Albumin/Globulin [Mass ratio] 0.7 {ratio} Normal [facility] Comment on above: Performed By: #### C MP ####[facility] Rsarvducnm0731 [place] [address]Dr. Antonella Medrano ALP [Catalytic activity/Vol] 97 U/L Normal 46-[address] [facility] Comment on above: Performed By: #### C MP ####[facility] Rdmbncbthp4483 [place] [address]Dr. Antonella Medrano ALT [Catalytic activity/Vol] 15 U/L Normal 14-[address] [facility] Comment on above: Performed By: #### C MP ####[facility] Yyrtttdcap0234 [place] [address]Dr. Antonella Medrano Anion gap [Moles/Vol] 14.4 mmol/L Normal [facility] Comment on above: Performed By: #### C MP ####[facility] Wgqqkpkgiw2007 [place] [phone]. Antonella Medrano AST [Catalytic activity/Vol] 11 U/L Critically low 15-[address] [facility] Comment on above: Performed By: #### C MP ####[facility] Jxifnicggd5058 [place] [phone]. Antonella Medrano Bilirubin [Mass/Vol] 0.2 mg/dL Normal 0.2-1.[address] [facility] Comment on above: Performed By: #### C MP ####[facility] Czwbegcdpt[address] [place], [place] [address]Dr. Antonella Medrano Calcium [Mass/Vol] 8.6 mg/dL Normal 8.5-10.[address] [facility] Comment on above: Performed By: #### C MP ####[facility] Fqphaigyre[address] [place], [place] [address]Dr. Antonella Medrano Chloride [Moles/Vol] 105 mmol/L Normal 98-[address] [facility] Comment on above: Performed By: #### C MP ####[facility] Mntqqihvjh[address] [place], [place] [address]Dr. Antonella Medrano CO2 [Moles/Vol] 26.8 mmol/L Normal 21.0-32.[address] [facility] Comment on above: Performed By: #### C MP ####[facility] Alplhsnqme[address] [place], [place] [address]Dr. Antonella Medrano Creatinine [Mass/Vol] 0.83 mg/dL Normal 0.55-1.[address] [facility] Comment on above: Performed By: #### C MP ####[facility] Gztajwpqec5266 [place] [phone]. Antonella Medrano EGFR-AF MALDIVIAN >60 Normal >=60 [facility] Comment on above: Performed By: #### C MP ####[facility] Avbgoumhek3100 [place] [phone]. Antonella Medrano EGFR-NON AF MALDIVIAN >60 Normal >=60 [facility] Comment on above: Performed By: #### C MP ####[facility] Icbvomyjqi3700 [place] [phone]. Antonella Medrano Globulin (S) [Mass/Vol] 3.4 g/dL Normal [facility] Comment on above: Performed By: #### C MP ####[facility] Jngygdowoi2029 [place] [phone]. Antonella Medrano Glucose [Mass/Vol] 148 mg/dL Critically high 74-106 [facility] Comment on above: Performed By: #### C MP ####[facility] [address] [place] [id number]. Antonella Medrano Potassium [Moles/Vol] 4.2 mmol/L Normal 3.5-5.[address] [facility] Comment on above: Performed By: #### C MP ####[facility] [address]of[address] [place] [address]Dr. Antonella Medrano Protein [Mass/Vol] 5.9 g/dL Critically low 6.4-8.2 [facility] Comment on above: Performed By: #### C MP ####[facility] [address]sw[address] [place] [address]Dr. Antonella Medrano Sodium [Moles/Vol] 142 mmol/L Normal 136-[address] [facility] Comment on above: Performed By: #### C MP ####[facility] [address]vb[address] [place] [address]Dr. Antonella Medrano Urea nitrogen [Mass/Vol] 21.0 mg/dL Critically high 7.0-18.[address] [facility] Comment on above: Performed By: #### C MP ####[facility] [address] [place] [address]Dr. Antonella Medrano Urea nitrogen/Creatinine [Mass ratio] 25.3 mg/mg Normal [facility] Comment on above: Performed By: #### C MP ####[facility] [address] [place] [address]Dr. Antonella Medrano URINE MICROSCOPIC ONLYon BACTERIA TRACE Abnormal NONE SEEN [facility] Comment on above: Performed By: #### E HALEY LEE ####[facility] Y[address]gr[address] [place] [address]Dr. Antonella Medrano Bacteria identified Cx Nom (U) INDICATED Normal [facility] Comment on above: Performed By: #### LATA CLARKRO ####[facility] E[address] [place] [address]Dr. Antonella Medrano CAST NONE SEEN Normal NONE SEEN [facility] Comment on above: Performed By: #### LATA CLARKRO ####[facility] Z[address]hvfwksr[address] [place] [address]Dr. Antonella Medrano Crystals LM Nom (Urine sed) NONE SEEN Normal NONE SEEN [facility] Comment on above: Performed By: #### HALEY CLARK ####[facility] Ozobwbxhte[address] [place], [place] [address]Dr. Antonella Medrano Epithelial cells LM Ql (Urine sed) RARE Normal NONE SEEN /RARE [facility] Comment on above: Performed By: #### LATA CLARKRO ####[facility] Lggfnnnqbo[address] [place], [place] [address]Dr. Antonella Medrano MUCOUS NONE SEEN Normal NONE SEEN [facility] Comment on above: Performed By: #### HALEY CLARK ####[facility] Arcrqahfyx[address] [place], [place] [address]Dr. Antonella Medrano RBC 2-5 Abnormal 0-2 [facility] Comment on above: Performed By: #### HALEY CLARK ####[facility] Luhjgvvpsr[address] [place], [place] [address]Dr. Antonella Medrano WBC 10-20 Abnormal NONE SEEN [facility] Comment on above: Performed By: #### LATA CLARKRO ####[facility] Zhqtwdtcwn304[address] [place], [place] [address]Dr. Antonella Medrano CBC AUTO DIFFon 11-13-2022 BASO # 0.0 103/ul Normal 0.0-0.1 [facility] Comment on above: Performed By: #### C BC ####[facility] Rkbxitkxgx833[address] [place], [place] [address]Dr. Antonella Medrano Basophils/100 WBC (Bld) 0.4 % Normal 0.2-2.0 [facility] Comment on above: Performed By: #### C BC ####[facility] Gfjgcxxdrq[address] [place], [place] [address]Dr. Antonella Medrano EO # 0.3 103/ul Normal 0.0-0.7 [facility] Comment on above: Performed By: #### C BC ####[facility] Qwixwgugcq[address] [place], [place] [address]Dr. Antonella Medrano Eosinophils/100 WBC (Bld) 3.2 % Normal 0.9-7.0 [facility] Comment on above: Performed By: #### C BC ####[facility] Joahjkmfrt27[address] [place], [place] [address]Dr. Antonella Medrano Erythrocyte distribution width (RBC) [Ratio] 13.0 % Normal 11.0-15.0 [facility] Comment on above: Performed By: #### C BC ####[facility] Xluzcamjwq[address] [place], [place] [address]Dr. Antonella Medrano Hematocrit (Bld) [Volume fraction] 39.4 % Normal 36.0-48.0 [facility] Comment on above: Performed By: #### C BC ####[facility] Fsxgnfnwgh069[address] [place], [place] [address]Dr. Antonella Medrano Hemoglobin (Bld) [Mass/Vol] 13.3 g/dL Normal 12.0-16.0 [facility] Comment on above: Performed By: #### C BC ####[facility] Fbldvqkabn[address] [place], [place] [address]Dr. Antonella Medrano IG # 0.08 10e3/ul Critically high 0.00-0.03 [facility] Comment on above: Performed By: #### C BC ####[facility] Jxpteldzze84[address] [place], [place] [address]Dr. Antonella Medrano IG % 0.9 % Critically high 0.0-0.5 [facility] Comment on above: Performed By: #### C BC ####[facility] Fgmzauhzec[address] [place], [place] [address]Dr. Mariafilemon Medrano LYMPH # 1.6 103/ul Normal 1.2-3.8 [facility] Comment on above: Performed By: #### C BC ####[facility] [address] [place] [address]Dr. Mariafilemon Medrano Lymphocytes/100 WBC (Bld) 18.7 % Critically low 20.5-60.0 [facility] Comment on above: Performed By: #### C BC ####[facility] [address]qbrsj[address] [place] [address]Dr. Mariafilemon Medrano MANUAL DIFF REQ NO Normal [facility] Comment on above: Performed By: #### C BC ####[facility] Ashpgcidop[address] [place] [address]Dr. Antonella Mitchell MCH (RBC) [Entitic mass] 28.9 pg Normal 26.7-34.0 [facility] Comment on above: Performed By: #### C BC ####[facility] Y[address]xsowdy[address] [place] [address]Dr. Antonella Mitchell MCHC (RBC) [Mass/Vol] 33.8 g/dL Normal 29.9-35.2 [facility] Comment on above: Performed By: #### C BC ####[facility] [address]ms[address]kc[address] [place] [address]Dr. Antonella Medrano MCV (RBC) [Entitic vol] 85.7 fL Normal 81.0-99.0 [facility] Comment on above: Performed By: #### C BC ####[facility] Ayadkcnlca[address] [place] [address]Dr. Antonella Medrano MONO # 0.9 103/ul Critically high 0.3-0.8 [facility] Comment on above: Performed By: #### C BC ####[facility] Ifoxufisnx[address] [place] [address]Dr. Antonella Medrano Monocytes/100 WBC (Bld) 10.4 % Normal 1.7-12.0 [facility] Comment on above: Performed By: #### C BC ####[facility] Az[address]itcq[address] [place] [address]Dr. Antonella Medrano NEUT # 5.7 103/ul Normal 1.4-6.5 [facility] Comment on above: Performed By: #### C BC ####[facility] Rmtqdpteat8[address] [place] [address]Dr. Antonella Medrano Neutrophils/100 WBC (Bld) 66.4 % Normal 43.0-75.0 [facility] Comment on above: Performed By: #### C BC ####[facility] Q[address]zdkjkpff[address] [place] [address]Dr. Antonella Medrano Platelet mean volume (Bld) [Entitic vol] 10.8 fL Normal 9.5-13.5 [facility] Comment on above: Performed By: #### C BC ####[facility] Rnczvdmfmu[address] [place] [address]Dr. Antonella Medrano PLT 255 103/ul Normal 150-450 [facility] Comment on above: Performed By: #### C BC ####[facility] Fwdipxiakx96[address] [place], [place] [address]Dr. Antonella Medrano RBC 4.60 106/ul Normal 4.20-5.40 [facility] Comment on above: Performed By: #### C BC ####[facility] Qhraauvbhd[address] [place], [place] [address]Dr. Antonella Medrano WBC 8.6 103/ul Normal 4.0-11.0 [facility] Comment on above: Performed By: #### C BC ####[facility] Hrxisypnkr45[address] [place], [place] [address]Dr. Antonella Medrano POINT OF CARE GLUCOSEon - Glucose [Mass/Vol] 317 mg/dL Critically high 74-106 [facility] Comment on above: Performed By: #### P OCGLUC ####[facility] Cjclfyhzmp98[address] [place], [place] [address]Dr. Antonella Medrano Glucose [Mass/Vol] 328 mg/dL Critically high 74-106 [facility] Comment on above: Performed By: #### P OCGLUC ####[facility] Rlsumlywko17[address] [place], [place] [address]Dr. Antonella Mitchell Glucose [Mass/Vol] 234 mg/dL Critically high 74-106 [facility] Comment on above: Performed By: #### P OCGLUC ####[facility] S[address]wqv[address] [place] [address]Dr. Antonella Medrano Glucose [Mass/Vol] 343 mg/dL Critically high 74-106 [facility] Comment on above: Performed By: #### P OCGLUC ####[facility] Sfjwmdwatf[address] [place] [address]Dr. Antonella Medrano Glucose [Mass/Vol] 284 mg/dL Critically high 74-106 [facility] Comment on above: Performed By: #### P OCGLUC ####[facility] Vrdtojjnzc18[address] [place], [place] [address]Dr. Mariaiflemon Medrano PROF 14(COMP METB)on 11-13- 023 Albumin [Mass/Vol] 2.5 g/dL Critically low 3.4-5.0 [facility] Comment on above: Performed By: #### C MP ####[facility] Yfslmurzsc01[address] [place], [place] [address]Dr. Antonella Mitchell Albumin/Globulin [Mass ratio] 0.9 {ratio} Normal [facility] Comment on above: Performed By: #### C MP ####[facility] Quwrlrlolq[address] [place], [place] [address]Dr. Mariafilemon Mitchell ALP [Catalytic activity/Vol] 121 U/L Critically high 46-[address] [facility] Comment on above: Performed By: #### C MP ####[facility] Otxgldwbxx[address] [place] [address]Dr. Mariafilemon Medrano ALT [Catalytic activity/Vol] 19 U/L Normal 14-[address] [facility] Comment on above: Performed By: #### C MP ####[facility] I[address]zkfuhvm[address] [place] [address]Dr. Antonella Medrano Anion gap [Moles/Vol] 11.0 mmol/L Normal [facility] Comment on above: Performed By: #### C MP ####[facility] Kemdyprxtx074[address] [place], [place] [address]Dr. Antonella Medrano AST [Catalytic activity/Vol] 19 U/L Normal 15-37 [facility] Comment on above: Performed By: #### C MP ####[facility] Rtkcmqtvpz[address] [place] [address]Dr. Antonella Medrano Bilirubin [Mass/Vol] 0.3 mg/dL Normal 0.2-1.0 [facility] Comment on above: Performed By: #### C MP ####[facility] Qlplamdmov62[address] [place], [place] [address]Dr. Antonella Medrano Calcium [Mass/Vol] 8.8 mg/dL Normal 8.5-10.1 [facility] Comment on above: Performed By: #### C MP ####[facility] Eddrtqupdm037[address] [place], [place] [address]Dr. Antonella Medrano Chloride [Moles/Vol] 103 mmol/L Normal 98-107 [facility] Comment on above: Performed By: #### C MP ####[facility] Tgxbyqxdzc5864[address] [place], [place] [address]Dr. Antonella Medrano CO2 [Moles/Vol] 27.2 mmol/L Normal 21.0-32.0 [facility] Comment on above: Performed By: #### C MP ####[facility] Usqblxldra1867[address] [place], [place] [address]Dr. Antonella Medrano Creatinine [Mass/Vol] 0.58 mg/dL Normal 0.55-1.02 [facility] Comment on above: Performed By: #### C MP ####[facility] Obgwwnercf[address] [place], [place] [address]Dr. Antonella Mitchell EGFR-AF MALDIVIAN >60 Normal >=60 [facility] Comment on above: Performed By: #### C MP ####[facility] Gkxbczojwc6414[address] [place], [place] [address]Dr. Mariafilemon Mitchell EGFR-NON AF MALDIVIAN >60 Normal >=60 [facility] Comment on above: Performed By: #### C MP ####[facility] Zuttcobqxm97[address] [place], [place] [address]Dr. Atnonella Mitchell Globulin (S) [Mass/Vol] 2.7 g/dL Normal [facility] Comment on above: Performed By: #### C MP ####[facility] [address] [place] [address]Dr. Antonella Medrano Glucose [Mass/Vol] 245 mg/dL Critically high 74-106 [facility] Comment on above: Performed By: #### C MP ####[facility] Nzrwzkimpr[address] [place] [address]Dr. Antonella Mitchell Potassium [Moles/Vol] 4.2 mmol/L Normal 3.5-5.[address] [facility] Comment on above: Performed By: #### C MP ####[facility] Ekmsyykvpr024[address] [place], [place] [address]Dr. Antonella Mitchell Protein [Mass/Vol] 5.2 g/dL Critically low 6.4-8.2 [facility] Comment on above: Performed By: #### C MP ####[facility] Kcwyareqmh[address] [place], [place] [address]Dr. Mariafilemon Medrano Sodium [Moles/Vol] 137 mmol/L Normal 136-[address] [facility] Comment on above: Performed By: #### C MP ####[facility] Wndqtzmsid70[address] [place], [place] [address]Dr. Antonella Mitchell Urea nitrogen [Mass/Vol] 24.0 mg/dL Critically high 7.0-18.[address] [facility] Comment on above: Performed By: #### C MP ####[facility] Hvjzirxixw[address] [place], [place] [address]Dr. Antonella Mitchell Urea nitrogen/Creatinine [Mass ratio] 41.4 mg/mg Normal [facility] Comment on above: Performed By: #### C MP ####[facility] Urkfqhoupd[address] [place], [place] [address]Dr. Mariafilemon Mitchell CBC AUTO DIFFon 11-12-2022 BASO # 0.0 103/ul Normal 0.0-0.[address] [facility] Comment on above: Performed By: #### C BC ####[facility] Xoemysdvte[address] [place], [place] [address]Dr. Antonella Medrano Basophils/100 WBC (Bld) 0.5 % Normal 0.2-2.0 [facility] Comment on above: Performed By: #### C BC ####[facility] Hvjabtuyrq167[address] [place], [place] [address]DrGerman Medrano EO # 0.3 103/ul Normal 0.0-0.7 [facility] Comment on above: Performed By: #### C BC ####[facility] Egbfjpwqck018[address] [place], [place] [address]Dr. Antonella Medrano Eosinophils/100 WBC (Bld) 3.5 % Normal 0.9-7.0 [facility] Comment on above: Performed By: #### C BC ####[facility] Srplqvntcx785[address] [place], [place] [address]Dr. Antonella Medrano Erythrocyte distribution width (RBC) [Ratio] 13.1 % Normal 11.0-15.[address] [facility] Comment on above: Performed By: #### C BC ####[facility] Bxvytmzvyz209[address] [place], [place] [address]Dr. Antonella Medrano Hematocrit (Bld) [Volume fraction] 39.4 % Normal 36.0-48.0 [facility] Comment on above: Performed By: #### C BC ####[facility] Eqhdeefhpj39[address] [place], [place] [address]Dr. Antonella Medrano Hemoglobin (Bld) [Mass/Vol] 13.3 g/dL Normal 12.0-16.0 [facility] Comment on above: Performed By: #### C BC ####[facility] Orbaobmlul317[address] [place], [place] [address]Dr. Antonella Medrano IG # 0.11 10e3/ul Critically high 0.00-0.03 [facility] Comment on above: Performed By: #### C BC ####[facility] Tetvanltdg884[address] [place], [place] [address]Dr. Antonella Medrano IG % 1.3 % Critically high 0.0-0.5 [facility] Comment on above: Performed By: #### C BC ####[facility] Sxlcllafqv30[address] [place], [place] [address]DrGerman Medrano LYMPH # 2.0 103/ul Normal 1.2-3.8 [facility] Comment on above: Performed By: #### C BC ####[facility] Amucyucswx[address] [place] [address]DrGerman Medrano Lymphocytes/100 WBC (Bld) 22.9 % Normal 20.5-60.0 [facility] Comment on above: Performed By: #### C BC ####[facility] Asjcidobor56[address] [place], [place] [address]DrGerman Medrano MANUAL DIFF REQ NO Normal [facility] Comment on above: Performed By: #### C BC ####[facility] Rzvlquezbg6[address] [place], [place] [address]DrGerman Medrano MCH (RBC) [Entitic mass] 29.2 pg Normal 26.7-34.0 [facility] Comment on above: Performed By: #### C BC ####[facility] Sqsagnyhlo[address] [place], [place] [address]DrGerman Medrano MCHC (RBC) [Mass/Vol] 33.8 g/dL Normal 29.9-35.2 [facility] Comment on above: Performed By: #### C BC ####[facility] Xlmjsxdbji05[address] [place], [place] [address]DrGerman Medrano MCV (RBC) [Entitic vol] 86.6 fL Normal 81.0-99.0 [facility] Comment on above: Performed By: #### C BC ####[facility] Vfzetujyin358[address] [place], [place] [address]DrGerman Medrano MONO # 0.8 103/ul Normal 0.3-0.8 [facility] Comment on above: Performed By: #### C BC ####[facility] Xjwwktkgne46[address] [place], [place] [address]DrGerman Medrano Monocytes/100 WBC (Bld) 9.2 % Normal 1.7-12.0 [facility] Comment on above: Performed By: #### C BC ####[facility] Qfdquzsqey87[address] [place], [place] [address]DrGerman Medrano NEUT # 5.4 103/ul Normal 1.4-6.[address] [facility] Comment on above: Performed By: #### C BC ####[facility] Pggmkrdwsz[address] [place] [address]Dr. Mariafilemon Medrano Neutrophils/100 WBC (Bld) 62.6 % Normal 43.0-75.[address] [facility] Comment on above: Performed By: #### C BC ####[facility] Bnhuyrmxdq[address] [place] [address]Dr. Mariafilemon Medrano Platelet mean volume (Bld) [Entitic vol] 10.8 fL Normal 9.5-13.[address] [facility] Comment on above: Performed By: #### C BC ####[facility] Jeptfnihii[address] [place] [address]Dr. Antonella Medrano PLT 247 103/ul Normal 150-[address] [facility] Comment on above: Performed By: #### C BC ####[facility] Gvrqasnxsz[address] [place], [place] [address]Dr. Antonella Medrano RBC 4.55 106/ul Normal 4.20-5.[address] [facility] Comment on above: Performed By: #### C BC ####[facility] Webbckkqri50[address] [place], [place] [address]Dr. Antonella Medrano WBC 8.6 103/ul Normal 4.0-11.[address] [facility] Comment on above: Performed By: #### C BC ####[facility] Vqkozmtdoj[address] [place] [address]Dr. Antonella Medrano POINT OF CARE GLUCOSEon 10-25 0 Glucose [Mass/Vol] 299 mg/dL Critically high 74-106 [facility] Comment on above: Performed By: #### P OCGLUC ####[facility] Epzukgoabz[address] [place], [place] [address]Dr. Antonella Medrano Glucose [Mass/Vol] 232 mg/dL Critically high 74-106 [facility] Comment on above: Performed By: #### P OCGLUC ####[facility] Keogdwruov[address] [place] [address]Dr. Antonella Medrano PROF 14(COMP METB)on 023 Albumin [Mass/Vol] 2.4 g/dL Critically low 3.4-5.0 [facility] Comment on above: Performed By: #### C MP ####[facility] Dzicjfrejt[address] [place], [place] [address]Dr. Antonella Medrano Albumin/Globulin [Mass ratio] 0.8 {ratio} Normal [facility] Comment on above: Performed By: #### C MP ####[facility] Yoszjwjkdz[address] [place], [place] [address]Dr. Antonella Medrano ALP [Catalytic activity/Vol] 115 U/L Normal 46-[address] [facility] Comment on above: Performed By: #### C MP ####[facility] Dfifvnybhy[address] [place], [place] [address]Dr. Antonella Medrano ALT [Catalytic activity/Vol] 15 U/L Normal 14-[address] [facility] Comment on above: Performed By: #### C MP ####[facility] Pfzjmcruui[address] [place], [place] [address]Dr. Antonella Medrano Anion gap [Moles/Vol] 11.2 mmol/L Normal [facility] Comment on above: Performed By: #### C MP ####[facility] Losjtisfpg45[address] [place], [place] [address]Dr. Antonella Medrano AST [Catalytic activity/Vol] 17 U/L Normal 15-[address] [facility] Comment on above: Performed By: #### C MP ####[facility] Jgcffslsrd8[address] [place], [place] [address]Dr. Antonella Medrano Bilirubin [Mass/Vol] 0.3 mg/dL Normal 0.2-1.[address] [facility] Comment on above: Performed By: #### C MP ####[facility] Mpbxiltgiu64[address] [place], [place] [address]Dr. Antonella Medrano Calcium [Mass/Vol] 8.6 mg/dL Normal 8.5-10.[address] [facility] Comment on above: Performed By: #### C MP ####[facility] Fmsqkkslrm[address] [place], [place] [address]Dr. Antonella Medrano Chloride [Moles/Vol] 104 mmol/L Normal 98-[address] [facility] Comment on above: Performed By: #### C MP ####[facility] Uapeebnhzy[address] [place] [address]Dr. Antonella Medrano CO2 [Moles/Vol] 26.0 mmol/L Normal 21.0-32.[address] [facility] Comment on above: Performed By: #### C MP ####[facility] Umvletcjga[address] [place] [address]Dr. Antonella Medrano Creatinine [Mass/Vol] 0.62 mg/dL Normal 0.55-1.[address] [facility] Comment on above: Performed By: #### C MP ####[facility] Hrvsrmwjye[address] [place], [place] [address]Dr. Antonella Medrano EGFR-AF MALDIVIAN >60 Normal >=[address] [facility] Comment on above: Performed By: #### C MP ####[facility] Qibkdducgt[address] [place], [place] [address]Dr. Antonella Medrano EGFR-NON AF MALDIVIAN >60 Normal >=[address] [facility] Comment on above: Performed By: #### C MP ####[facility] Xioxoskaxm[address] [place], [place] [address]Dr. Antonella Medrano Globulin (S) [Mass/Vol] 3.0 g/dL Normal [facility] Comment on above: Performed By: #### C MP ####[facility] Dbloyumqdy[address] [place] [address]Dr. Antonella Medrano Glucose [Mass/Vol] 223 mg/dL Critically high 74-106 [facility] Comment on above: Performed By: #### C MP ####[facility] Rwlhotahru[address] [place] [address]Dr. Antonella Medrano Potassium [Moles/Vol] 4.2 mmol/L Normal 3.5-5.[address] [facility] Comment on above: Performed By: #### C MP ####[facility] Jqjfhvpdzv[address] [place] [address]Dr. Antonella Mitchell Protein [Mass/Vol] 5.4 g/dL Critically low 6.4-8.2 [facility] Comment on above: Performed By: #### C MP ####[facility] Kprvadecal[address] [place] [address]Dr. Antonella Medrano Sodium [Moles/Vol] 137 mmol/L Normal 136-[address] [facility] Comment on above: Performed By: #### C MP ####[facility] Clmaccwuhr[address] [place], [place] [address]Dr. Antonella Medrano Urea nitrogen [Mass/Vol] 20.0 mg/dL Critically high 7.0-18.[address] [facility] Comment on above: Performed By: #### C MP ####[facility] Nshncxwxxb[address] [place], [place] [address]Dr. Antonella Medrano Urea nitrogen/Creatinine [Mass ratio] 32.3 mg/mg Normal [facility] Comment on above: Performed By: #### C MP ####[facility] Hbobkywvhl[address] [place], [place] [address]Dr. Antonella Medrano CBC AUTO DIFFon 11-11-2022 BASO # 0.0 103/ul Normal 0.0-0.[address] [facility] Comment on above: Performed By: #### C BC ####[facility] Frbqdbrrlz6[address] [place], [place] [address]Dr. Antonella Medrano Basophils/100 WBC (Bld) 0.5 % Normal 0.2-2.[address] [facility] Comment on above: Performed By: #### C BC ####[facility] Npahllqhun[address] [place], [place] [address]Dr. Antonella Medrano EO # 0.3 103/ul Normal 0.0-0.7 [facility] Comment on above: Performed By: #### C BC ####[facility] Datvajjpov[address] [place], [place] [address]Dr. Antonella Mitchell Eosinophils/100 WBC (Bld) 3.4 % Normal 0.9-7.0 [facility] Comment on above: Performed By: #### C BC ####[facility] Tnbtmgatfc[address] [place], [place] [address]Dr. Antonella Medrano Erythrocyte distribution width (RBC) [Ratio] 13.3 % Normal 11.0-15.[address] [facility] Comment on above: Performed By: #### C BC ####[facility] [address]yoomtyi[address] [place] [address]Dr. Antonella Medrano Hematocrit (Bld) [Volume fraction] 38.2 % Normal 36.0-48.[address] [facility] Comment on above: Performed By: #### C BC ####[facility] Imvthygbop[address] [place], [place] [address]DrGerman Medrano Hemoglobin (Bld) [Mass/Vol] 12.5 g/dL Normal 12.0-16.0 [facility] Comment on above: Performed By: #### C BC ####[facility] Foextpyuir988[address] [place], [place] [address]DrGerman Medrano IG # 0.10 10e3/ul Critically high 0.00-0.[address] [facility] Comment on above: Performed By: #### C BC ####[facility] Bemeqmhqnn4[address] [place], [place] [address]DrGerman Medrano IG % 1.2 % Critically high 0.0-0.[address] [facility] Comment on above: Performed By: #### C BC ####[facility] Kerchabowj624[address] [place], [place] [address]DrGerman Medrano LYMPH # 1.9 103/ul Normal 1.2-3.8 [facility] Comment on above: Performed By: #### C BC ####[facility] Ibwkplypar705[address] [place], [place] [address]DrGerman Medrano Lymphocytes/100 WBC (Bld) 23.1 % Normal 20.5-60.0 [facility] Comment on above: Performed By: #### C BC ####[facility] Vjtzetahqs[address] [place], [place] [address]DrGerman Medrano MANUAL DIFF REQ NO Normal [facility] Comment on above: Performed By: #### C BC ####[facility] Qyaunepqhy2310[address] [place], [place] [address]DrGerman Medrano MCH (RBC) [Entitic mass] 28.7 pg Normal 26.7-34.0 [facility] Comment on above: Performed By: #### C BC ####[facility] Ynrvgwqbnp[address] [place] [address]Dr. Antonella Medrano MCHC (RBC) [Mass/Vol] 32.7 g/dL Normal 29.9-35.[address] [facility] Comment on above: Performed By: #### C BC ####[facility] Tsosjaxspt06[address] [place] [address]Dr. Antonella Medrano MCV (RBC) [Entitic vol] 87.6 fL Normal 81.0-99.0 [facility] Comment on above: Performed By: #### C BC ####[facility] Tweregvfgo129[address] [place], [place] [address]Dr. Antonella Medrano MONO # 0.8 103/ul Normal 0.3-0.8 [facility] Comment on above: Performed By: #### C BC ####[facility] Xogubfhatp8630[address] [place], [place] [address]Dr. Antonella Medrano Monocytes/100 WBC (Bld) 9.8 % Normal 1.7-12.0 [facility] Comment on above: Performed By: #### C BC ####[facility] Nraxskdzab329[address] [place], [place] [address]Dr. Antonella Medrano NEUT # 5.1 103/ul Normal 1.4-6.5 [facility] Comment on above: Performed By: #### C BC ####[facility] Jtnsnwgvss24[address] [place], [place] [address]Dr. Antonella Medrano Neutrophils/100 WBC (Bld) 62.0 % Normal 43.0-75.0 [facility] Comment on above: Performed By: #### C BC ####[facility] Dugqiwrddj847[address] [place], [place] [address]Dr. Antonella Medrano Platelet mean volume (Bld) [Entitic vol] 11.1 fL Normal 9.5-13.5 [facility] Comment on above: Performed By: #### C BC ####[facility] Efismgcwqv915[address] [place], [place] [address]Dr. Antonella Medrano PLT 251 103/ul Normal 150-[address] [facility] Comment on above: Performed By: #### C BC ####[facility] Saojixbxoh[address] [place] [address]Dr. Antonella Medrano RBC 4.36 106/ul Normal 4.20-5.[address] [facility] Comment on above: Performed By: #### C BC ####[facility] Nbmthfekqc1309 [place] [id number]. Antonella Medrano WBC 8.2 103/ul Normal 4.0-11.[address] [facility] Comment on above: Performed By: #### C BC ####[facility] Ffhinnxjvr8454 [place] [address]DrGerman Medrano POINT OF CARE GLUCOSEon 10-24 Glucose [Mass/Vol] 282 mg/dL Critically high 74-106 [facility] Comment on above: Performed By: #### P OCGLUC ####[facility] Esvmdslrho9[address] [place] [address]Dr. Antonella Medrano Glucose [Mass/Vol] 269 mg/dL Critically high 74-106 [facility] Comment on above: Performed By: #### P OCGLUC ####[facility] Rbxjpopqdb545[address] [place], [place] [address]Dr. Antonella Medrano Glucose [Mass/Vol] 255 mg/dL Critically high 74-106 [facility] Comment on above: Performed By: #### P OCGLUC ####[facility] Dtsislrcuu8366 [place] [address]DrGerman Medrano PROF 14(COMP METB)on 023 Albumin [Mass/Vol] 2.2 g/dL Critically low 3.4-5.0 [facility] Comment on above: Performed By: #### C MP ####[facility] Mrjscfvlel8086 [place] [address]Dr. Antonella Medrano Albumin/Globulin [Mass ratio] 0.7 {ratio} Normal [facility] Comment on above: Performed By: #### C MP ####[facility] Aycmutwcjb9752 [place] [address]Dr. Antonella Medrano ALP [Catalytic activity/Vol] 129 U/L Critically high 46-[address] [facility] Comment on above: Performed By: #### C MP ####[facility] Knutpdzpfd7[address] [place] [address]Dr. Antonella Medrano ALT [Catalytic activity/Vol] 14 U/L Normal 14-[address] [facility] Comment on above: Performed By: #### C MP ####[facility] Lihczmvcnn77[address] [place] [address]Dr. Antonella Mitchell Anion gap [Moles/Vol] 10.6 mmol/L Normal Th [facility] Comment on above: Performed By: #### C MP ####[facility] Doofbllqzo767[address] [place], [place] [address]Dr. Antonella Mitchell AST [Catalytic activity/Vol] 11 U/L Critically low 15-[address] [facility] Comment on above: Performed By: #### C MP ####[facility] Rzfqtuyctp88[address] [place], [place] [address]Dr. Antonella Mitchell Bilirubin [Mass/Vol] 0.3 mg/dL Normal 0.2-1.[address] [facility] Comment on above: Performed By: #### C MP ####[facility] Wxohcidldb72[address] [place], [place] [address]Dr. Antonella Mitchell Calcium [Mass/Vol] 8.4 mg/dL Critically low 8.5-10.1 [facility] Comment on above: Performed By: #### C MP ####[facility] Pxbkcmfkgb304[address] [place], [place] [address]Dr. Antonella Mitchell Chloride [Moles/Vol] 105 mmol/L Normal 98-[address] [facility] Comment on above: Performed By: #### C MP ####[facility] Ofkjectkrl4329[address] [place], [place] [address]Dr. Mariafilemon Medrano CO2 [Moles/Vol] 25.1 mmol/L Normal 21.0-32.[address] [facility] Comment on above: Performed By: #### C MP ####[facility] Rulvarkfrv3[address] [place], [place] [address]Dr. Antonella Mitchell Creatinine [Mass/Vol] 0.70 mg/dL Normal 0.55-1.[address] [facility] Comment on above: Performed By: #### C MP ####[facility] Larsbkvwgk6[address] [place] [address]Dr. Antonella Mitchell EGFR-AF MALDIVIAN >60 Normal >=[address] [facility] Comment on above: Performed By: #### C MP ####[facility] Lwlxgvlbic9408 [place] [phone]. Antonella Mitchell EGFR-NON AF MALDIVIAN >60 Normal >=[address] [facility] Comment on above: Performed By: #### C MP ####[facility] Copwypxnpc8[address] [place] [address]Dr. Antonella Mitchell Globulin (S) [Mass/Vol] 3.1 g/dL Normal [facility] Comment on above: Performed By: #### C MP ####[facility] Ksluoppdcy4972 [place] [address]Dr. Antonella Mitchell Glucose [Mass/Vol] 275 mg/dL Critically high 74-106 [facility] Comment on above: Performed By: #### C MP ####[facility] Wqvogjxbnf3030 [place] [address]Dr. Antonella Mitchell Potassium [Moles/Vol] 4.7 mmol/L Normal 3.5-5.[address] [facility] Comment on above: Performed By: #### C MP ####[facility] Fpmiajqyef8266 [place] [address]Dr. Antonella Mitchell Protein [Mass/Vol] 5.3 g/dL Critically low 6.4-8.2 [facility] Comment on above: Performed By: #### C MP ####[facility] Abigcbzrmp3468 [place] [address]Dr. Antonella Mitchell Sodium [Moles/Vol] 136 mmol/L Normal 136-[address] [facility] Comment on above: Performed By: #### C MP ####[facility] Ldgyqulamp6355 [place] [address]Dr. Mariafilemon Mitchell Urea nitrogen [Mass/Vol] 27.0 mg/dL Critically high 7.0-18.[address] [facility] Comment on above: Performed By: #### C MP ####[facility] Vofsvhwdrv7183 [place] [address]Dr. Antonella Medrano Urea nitrogen/Creatinine [Mass ratio] 38.6 mg/mg Normal [facility] Comment on above: Performed By: #### C MP ####[facility] Icctzcbzcl0076 [place] [address]Dr. Antonella Mitchell CBC AUTO DIFFon 11-10-2022 BASO # 0.1 103/ul Normal 0.0-0.[address] [facility] Comment on above: Performed By: #### C BC ####[facility] Hoskkmrqoo070[address] [place], [place] [address]Dr. Mariafilemon Medrano Basophils/100 WBC (Bld) 0.6 % Normal 0.2-2.[address] [facility] Comment on above: Performed By: #### C BC ####[facility] Qosqulhlwi898[address] [place], [place] [address]Dr. Antonella Mitchell EO # 0.3 103/ul Normal 0.0-0.[address] [facility] Comment on above: Performed By: #### C BC ####[facility] Vmzjamuvni955[address] [place], [place] [address]Dr. Antonella Mitchell Eosinophils/100 WBC (Bld) 3.4 % Normal 0.9-7.[address] [facility] Comment on above: Performed By: #### C BC ####[facility] Qwnyszxlkk859[address] [place], [place] [address]Dr. Antonella Medrano Erythrocyte distribution width (RBC) [Ratio] 13.3 % Normal 11.0-15.0 [facility] Comment on above: Performed By: #### C BC ####[facility] Rknrufmonp55[address] [place], [place] [address]Dr. Antonella Medrano Hematocrit (Bld) [Volume fraction] 39.8 % Normal 36.0-48.0 [facility] Comment on above: Performed By: #### C BC ####[facility] Yrckfdjjhx948[address] [place], [place] [address]Dr. Antonella Medrano Hemoglobin (Bld) [Mass/Vol] 13.2 g/dL Normal 12.0-16.[address] [facility] Comment on above: Performed By: #### C BC ####[facility] Rvdetnitrb1620 [place] [address]Dr. Antonella Medrano IG # 0.11 10e3/ul Critically high 0.00-0.[address] [facility] Comment on above: Performed By: #### C BC ####[facility] Yutslodqbh7365 [place] [address]Dr. Antonella Medrano IG % 1.3 % Critically high 0.0-0.[address] [facility] Comment on above: Performed By: #### C BC ####[facility] Ylqsaazanv1145 [place] [address]DrGerman Medrano LYMPH # 1.8 103/ul Normal 1.2-3.[address] [facility] Comment on above: Performed By: #### C BC ####[facility] Wlcenesulr6426 [place] [address]DrGerman Medrano Lymphocytes/100 WBC (Bld) 22.0 % Normal 20.5-60.[address] [facility] Comment on above: Performed By: #### C BC ####[facility] Gcutvyrqvl5866 [place] [address]DrGerman Medrano MANUAL DIFF REQ NO Normal [facility] Comment on above: Performed By: #### C BC ####[facility] Pyieyiycsi6810 [place] [address]DrGerman Medrano MCH (RBC) [Entitic mass] 29.3 pg Normal 26.7-34.[address] [facility] Comment on above: Performed By: #### C BC ####[facility] Gskotamrzh[address] [place] [phone] Medrano MCHC (RBC) [Mass/Vol] 33.2 g/dL Normal 29.9-35.2 [facility] Comment on above: Performed By: #### C BC ####[facility] Odznzglfrt0784 [place] [phone] Medrano MCV (RBC) [Entitic vol] 88.2 fL Normal 81.0-99.[address] [facility] Comment on above: Performed By: #### C BC ####[facility] Domuqmfuai7419 [place] [address]Dr. Antonella Medrano MONO # 0.9 103/ul Critically high 0.3-0.[address] [facility] Comment on above: Performed By: #### C BC ####[facility] Qpafnmkpil9227 [place] [address]Dr. Antonella Medrano Monocytes/100 WBC (Bld) 11.0 % Normal 1.7-12.[address] [facility] Comment on above: Performed By: #### C BC ####[facility] Gqcmeluxfb25[address] [place], [place] [address]Dr. Antonella Medrano NEUT # 5.0 103/ul Normal 1.4-6.5 [facility] Comment on above: Performed By: #### C BC ####[facility] Ervkewaeos759[address] [place], [place] [address]Dr. Antonella Medrano Neutrophils/100 WBC (Bld) 61.7 % Normal 43.0-75.0 [facility] Comment on above: Performed By: #### C BC ####[facility] Qbizqjftgg5409[address] [place], [place] [address]Dr. Antonella Medrano Platelet mean volume (Bld) [Entitic vol] 11.0 fL Normal 9.5-13.5 [facility] Comment on above: Performed By: #### C BC ####[facility] Yjybgylycy19[address] [place], [place] [address]Dr. Antonella Medrano PLT 237 103/ul Normal 150-450 [facility] Comment on above: Performed By: #### C BC ####[facility] Szdgszoiqe[address] [place], [place] [address]Dr. Antonella Medrano RBC 4.51 106/ul Normal 4.20-5.40 [facility] Comment on above: Performed By: #### C BC ####[facility] Qzvwfwtpmp[address] [place], [place] [address]Dr. Antonella Medrano WBC 8.2 103/ul Normal 4.0-11.0 [facility] Comment on above: Performed By: #### C BC ####[facility] Mtuhbdfydc[address] [place] [address]Dr. Antonella Mitchell POINT OF CARE GLUCOSEon 10-24 Glucose [Mass/Vol] 255 mg/dL Critically high 74-106 [facility] Comment on above: Performed By: #### P OCGLUC ####[facility] Bnihhrchfr6295 [place] [address]Dr. Mariafilemon Mitchell Glucose [Mass/Vol] 268 mg/dL Critically high 74-106 [facility] Comment on above: Performed By: #### P OCGLUC ####[facility] Atrsflfshk4457 [place] [address]Dr. Antonella Medrano Glucose [Mass/Vol] 355 mg/dL Critically high 74-106 [facility] Comment on above: Performed By: #### P OCGLUC ####[facility] Rqyxefiwoz897[address] [place], [place] [address]Dr. Antonella Mitchell Glucose [Mass/Vol] 318 mg/dL Critically high 74-106 [facility] Comment on above: Performed By: #### P OCGLUC ####[facility] Hlcbjuxkfw6026[address] [place], [place] [address]Dr. Antonella Medrano PROF 14(COMP METB)on 023 Albumin [Mass/Vol] 2.3 g/dL Critically low 3.4-5.0 [facility] Comment on above: Performed By: #### C MP ####[facility] Bfxxgvtaou6529 [place] [address]Dr. Antonella Medrano Albumin/Globulin [Mass ratio] 0.9 {ratio} Normal [facility] Comment on above: Performed By: #### C MP ####[facility] Emufutkjqo0133[address] [place], [place] [address]Dr. Antonella Medrano ALP [Catalytic activity/Vol] 153 U/L Critically high 46-[address] [facility] Comment on above: Performed By: #### C MP ####[facility] Buinrnrxrc35[address] [place], [place] [address]Dr. Antonella Medrano ALT [Catalytic activity/Vol] 15 U/L Normal 14-[address] [facility] Comment on above: Performed By: #### C MP ####[facility] Ykfkseerby7024 [place] [address]Dr. Antonella Medrano Anion gap [Moles/Vol] 12.7 mmol/L Normal [facility] Comment on above: Performed By: #### C MP ####[facility] Qsxuodkzgc3372 [place] [address]Dr. Antonella Mitchell AST [Catalytic activity/Vol] 14 U/L Critically low 15-[address] [facility] Comment on above: Performed By: #### C MP ####[facility] Pxddjyvaeb1549 [place] [address]Dr. Mariafilemon Mitchell Bilirubin [Mass/Vol] 0.3 mg/dL Normal 0.2-1.[address] [facility] Comment on above: Performed By: #### C MP ####[facility] Ldfzjomzvx476[address] [place], [place] [address]Dr. Antonella Medrano Calcium [Mass/Vol] 8.3 mg/dL Critically low 8.5-10.1 [facility] Comment on above: Performed By: #### C MP ####[facility] Mryzrqwctd549[address] [place], [place] [address]Dr. Antonella Medrano Chloride [Moles/Vol] 104 mmol/L Normal 98-[address] [facility] Comment on above: Performed By: #### C MP ####[facility] Giezxbbrnk84[address] [place], [place] [address]Dr. Mariafilemon Mitchell CO2 [Moles/Vol] 23.8 mmol/L Normal 21.0-32.[address] [facility] Comment on above: Performed By: #### C MP ####[facility] Cwlcteutrx12[address] [place], [place] [address]Dr. Mariafilemon Mitchell Creatinine [Mass/Vol] 0.73 mg/dL Normal 0.55-1.[address] [facility] Comment on above: Performed By: #### C MP ####[facility] Ervfbhrbxe[address] [place], [place] [address]Dr. Antonella Medrano EGFR-AF MALDIVIAN >60 Normal >=60 [facility] Comment on above: Performed By: #### C MP ####[facility] Cvseaxvlwr5813 [place] [phone]. Antonella Medrano EGFR-NON AF MALDIVIAN >60 Normal >=[address] [facility] Comment on above: Performed By: #### C MP ####[facility] Fwxdbpkfmb9024 [place] [phone]. Antonella Medrano Globulin (S) [Mass/Vol] 2.6 g/dL Normal [facility] Comment on above: Performed By: #### C MP ####[facility] Dpsptsjpbv5565 [place] [phone]. Antonella Medrano Glucose [Mass/Vol] 320 mg/dL Critically high 74-106 [facility] Comment on above: Performed By: #### C MP ####[facility] Bwqkmmluwo0210 [place] [address]Dr. Antonella Medrano Potassium [Moles/Vol] 4.5 mmol/L Normal 3.5-5.[address] [facility] Comment on above: Performed By: #### C MP ####[facility] Eevhimxvjj07[address] [place], [place] [address]Dr. Antonella Medrano Protein [Mass/Vol] 4.9 g/dL Critically low 6.4-8.2 [facility] Comment on above: Performed By: #### C MP ####[facility] Tdowdwyysb60[address] [place], [place] [address]Dr. Antonella Medrano Sodium [Moles/Vol] 136 mmol/L Normal 136-[address] [facility] Comment on above: Performed By: #### C MP ####[facility] Wncylyvrzp6742 [place] [address]Dr. Antonella Medrano Urea nitrogen [Mass/Vol] 27.0 mg/dL Critically high 7.0-18.[address] [facility] Comment on above: Performed By: #### C MP ####[facility] Bjunbisigp0321 [place] [address]Dr. Mariafilemon Mitchell Urea nitrogen/Creatinine [Mass ratio] 37.0 mg/mg Normal [facility] Comment on above: Performed By: #### C MP ####[facility] Znlxpmidbn8266 [place] [phone]. Antonella Medrano CBC AUTO DIFFon 11-09-2022 BASO # 0.0 103/ul Normal 0.0-0.[address] [facility] Comment on above: Performed By: #### C BC ####[facility] Eoplxmdaze2363 [place] [phone]. Antonella Mitchell Basophils/100 WBC (Bld) 0.4 % Normal 0.2-2.[address] [facility] Comment on above: Performed By: #### C BC ####[facility] Tyyzhkfrre753[address] [place], [place] [address]Dr. Antonella Mitchell EO # 0.3 103/ul Normal 0.0-0.[address] [facility] Comment on above: Performed By: #### C BC ####[facility] Fihrexpcqr420[address] [place], [place] [address]Dr. Mariafilemon Medrano Eosinophils/100 WBC (Bld) 3.6 % Normal 0.9-7.[address] [facility] Comment on above: Performed By: #### C BC ####[facility] Wuxvvbqibb677[address] [place], [place] [address]Dr. Antonella Medrano Erythrocyte distribution width (RBC) [Ratio] 13.1 % Normal 11.0-15.[address] [facility] Comment on above: Performed By: #### C BC ####[facility] Tgtvsomujm63[address] [place], [place] [address]Dr. Antonella Medrano Hematocrit (Bld) [Volume fraction] 41.7 % Normal 36.0-48.0 [facility] Comment on above: Performed By: #### C BC ####[facility] Zbfltcenkb633[address] [place], [place] [address]Dr. Antonella Medrano Hemoglobin (Bld) [Mass/Vol] 13.8 g/dL Normal 12.0-16.0 [facility] Comment on above: Performed By: #### C BC ####[facility] Sugivtqnlk594[address] [place], [place] [address]Dr. Antonella Medrano IG # 0.09 10e3/ul Critically high 0.00-0.[address] [facility] Comment on above: Performed By: #### C BC ####[facility] Ukuprdkotm7803 [place] [address]Dr. Antonella Mitchell IG % 1.1 % Critically high 0.0-0.[address] [facility] Comment on above: Performed By: #### C BC ####[facility] Ukjmpqqatf2012 [place] [address]DrGerman Antonella Mitchell LYMPH # 1.8 103/ul Normal 1.2-3.[address] [facility] Comment on above: Performed By: #### C BC ####[facility] Okptcfdmvv4022 [place] [address]DrGerman Mariafilemon Medrano Lymphocytes/100 WBC (Bld) 21.2 % Normal 20.5-60.[address] [facility] Comment on above: Performed By: #### C BC ####[facility] Lrdyujhkrm40[address] [place], [place] [address]DrGerman Mariafilemon Medrano MANUAL DIFF REQ NO Normal [facility] Comment on above: Performed By: #### C BC ####[facility] Xtujpufjjo[address] [place], [place] [address]Dr. Antonella Mitchell MCH (RBC) [Entitic mass] 28.7 pg Normal 26.7-34.[address] [facility] Comment on above: Performed By: #### C BC ####[facility] Forbaedwhf24[address] [place], [place] [address]Dr. Antonella Mitchell MCHC (RBC) [Mass/Vol] 33.1 g/dL Normal 29.9-35.[address] [facility] Comment on above: Performed By: #### C BC ####[facility] Bvrwrpmfyd[address] [place], [place] [address]DrGerman Antonella Mitchell MCV (RBC) [Entitic vol] 86.7 fL Normal 81.0-99.[address] [facility] Comment on above: Performed By: #### C BC ####[facility] Liuivrlnki1270 [place] [phone] Medrano MONO # 0.9 103/ul Critically high 0.3-0.8 [facility] Comment on above: Performed By: #### C BC ####[facility] Ujehubbvjb7004 [place] [phone]. Antonella Medrano Monocytes/100 WBC (Bld) 10.9 % Normal 1.7-12.[address] [facility] Comment on above: Performed By: #### C BC ####[facility] Jsbiqwjezg3077 [place] [phone]. Antonella Medrano NEUT # 5.2 103/ul Normal 1.4-6.[address] [facility] Comment on above: Performed By: #### C BC ####[facility] Wkxgeyiavb6069 [place] [phone]. Antonella Medrano Neutrophils/100 WBC (Bld) 62.8 % Normal 43.0-75.[address] [facility] Comment on above: Performed By: #### C BC ####[facility] Coqlakfngk1385 [place] [address]Dr. Antonella Medrano Platelet mean volume (Bld) [Entitic vol] 10.6 fL Normal 9.5-13.[address] [facility] Comment on above: Performed By: #### C BC ####[facility] Hvxhcpbvuk0344 [place] [address]Dr. Antonella Medrano PLT 270 103/ul Normal 150-450 [facility] Comment on above: Performed By: #### C BC ####[facility] Agehvugfbh56[address] [place] [phone]. Antonella Medrano RBC 4.81 106/ul Normal 4.20-5.40 [facility] Comment on above: Performed By: #### C BC ####[facility] Xnbildybug3919 [place] [phone]. Antonella Medrano WBC 8.3 103/ul Normal 4.0-11.0 [facility] Comment on above: Performed By: #### C BC ####[facility] Dxztvrzoxq1972 [place] [phone]. Antonella Medrano POINT OF CARE GLUCOSEon - Glucose [Mass/Vol] 451 mg/dL Critically high 74-106 [facility] Comment on above: Performed By: #### P OCGLUC ####[facility] Ncjpdfkfxy[address] [place] [address]Dr. Antonella Medrano Glucose [Mass/Vol] 341 mg/dL Critically high 74-106 [facility] Comment on above: Performed By: #### P OCGLUC ####[facility] Nytkcoditu6732 [place] [phone]. Antonella Medrano Glucose [Mass/Vol] 440 mg/dL Critically high 74-106 [facility] Comment on above: Performed By: #### P OCGLUC ####[facility] Uunsatjqrb8[address] [place] [address]Dr. Antonella Medrano Glucose [Mass/Vol] 295 mg/dL Critically high 74-106 [facility] Comment on above: Performed By: #### P OCGLUC ####[facility] Ekylzlhscv[address] [place] [address]Dr. Antonella Medrano PROF 14(COMP METB)on 023 Albumin [Mass/Vol] 2.4 g/dL Critically low 3.4-5.0 [facility] Comment on above: Performed By: #### C MP ####[facility] Aqzxegizfw[address] [place] [address]Dr. Antonella Medrano Albumin/Globulin [Mass ratio] 0.8 {ratio} Normal [facility] Comment on above: Performed By: #### C MP ####[facility] Gocyjvrwyw4356 [place] [address]Dr. Antonella Medrano ALP [Catalytic activity/Vol] 121 U/L Critically high 46-[address] [facility] Comment on above: Performed By: #### C MP ####[facility] Jtzglzslxf0[address] [place] [address]Dr. Antonella Medrano ALT [Catalytic activity/Vol] 17 U/L Normal 14-[address] [facility] Comment on above: Performed By: #### C MP ####[facility] Wjnfkwexrw2723 [place] [phone]. Antonella Medrano Anion gap [Moles/Vol] 11.7 mmol/L Normal [facility] Comment on above: Performed By: #### C MP ####[facility] Ulhggwdydb6533 [place] [address]Dr. Antonella Medrano AST [Catalytic activity/Vol] 15 U/L Normal 15-[address] [facility] Comment on above: Performed By: #### C MP ####[facility] Dduvsnaely8583 [place] [phone]. Antonella Medrano Bilirubin [Mass/Vol] 0.4 mg/dL Normal 0.2-1.[address] [facility] Comment on above: Performed By: #### C MP ####[facility] Ywhcxyyrgg038[address] [place] [address]Dr. Antonella Medrano Calcium [Mass/Vol] 8.3 mg/dL Critically low 8.5-10.1 [facility] Comment on above: Performed By: #### C MP ####[facility] Okrzkgvwxs[address] [place], [place] [address]Dr. Antonella Medrano Chloride [Moles/Vol] 102 mmol/L Normal 98-[address] [facility] Comment on above: Performed By: #### C MP ####[facility] Yfqsztzslm[address] [place], [place] [address]Dr. Antonella Medrano CO2 [Moles/Vol] 26.4 mmol/L Normal 21.0-32.[address] [facility] Comment on above: Performed By: #### C MP ####[facility] Xztspzlmkt[address] [place], [place] [address]Dr. Antonella Medraon Creatinine [Mass/Vol] 0.92 mg/dL Normal 0.55-1.[address] [facility] Comment on above: Performed By: #### C MP ####[facility] Vakwezchyn8674 [place] [phone]. Antonella Mitchell EGFR-AF MALDIVIAN >60 Normal >=[address] [facility] Comment on above: Performed By: #### C MP ####[facility] Atgwordjha357[address] [place], [place] [address]Dr. Mariafilemon Mitchell EGFR-NON AF MALDIVIAN >60 Normal >=[address] [facility] Comment on above: Performed By: #### C MP ####[facility] Lkktqvgdfb0547 [place] [address]Dr. Antonella Medrano Globulin (S) [Mass/Vol] 3.0 g/dL Normal [facility] Comment on above: Performed By: #### C MP ####[facility] Laiugyyoxr6633 [place] [address]Dr. Antonella Medrano Glucose [Mass/Vol] 285 mg/dL Critically high 74-106 [facility] Comment on above: Performed By: #### C MP ####[facility] Ruecldbezg2391 [place] [address]Dr. Antonella Medrano Potassium [Moles/Vol] 4.1 mmol/L Normal 3.5-5.[address] [facility] Comment on above: Performed By: #### C MP ####[facility] Vshuoxebih408[address] [place], [place] [address]Dr. Antonella Medrano Protein [Mass/Vol] 5.4 g/dL Critically low 6.4-8.2 [facility] Comment on above: Performed By: #### C MP ####[facility] Flsjbwnptc380[address] [place], [place] [address]Dr. Antonella Medrano Sodium [Moles/Vol] 136 mmol/L Normal 136-[address] [facility] Comment on above: Performed By: #### C MP ####[facility] Nhbhxrecns19[address] [place], [place] [address]Dr. Antonella Medrano Urea nitrogen [Mass/Vol] 14.0 mg/dL Normal 7.0-18.[address] [facility] Comment on above: Performed By: #### C MP ####[facility] Acatlfrhes767[address] [place], [place] [address]Dr. Antonella Medrano Urea nitrogen/Creatinine [Mass ratio] 15.2 mg/mg Normal [facility] Comment on above: Performed By: #### C MP ####[facility] Fcmhwthcuv59[address] [place], [place] [address]Dr. Antonella Mitchell BLOOD GASES BTYon 11-08-2022 02 MODE ROOM AIR Normal [facility] Comment on above: Performed By: #### A BG ####[facility] Wzlcibfnbv12[address] [place] [address]Dr. Antonella Medrano ALLENS TEST Positive Normal [facility] Comment on above: Performed By: #### A BG ####[facility] Fasyglumgh9105 [place] [address]Dr. Antonella Medrano Base excess Calc (Bld) [Moles/Vol] 1.5 mmol/L Normal -2.0-2.0 [facility] Comment on above: Performed By: #### A BG ####[facility] Zhckecqzze469[address] [place], [place] [address]Dr. Antonella Medrano BIPAP PRESSURE Normal [facility] Comment on above: Performed By: #### A BG ####[facility] Hymdspolrt[address] [place], [place] [address]Dr. Antonella Medrano CPAP Normal [facility] Comment on above: Performed By: #### A BG ####[facility] Ljyycutdkx668[address] [place], [place] [address]Dr. Antonella Medrano FIO2 Normal [facility] Comment on above: Performed By: #### A BG ####[facility] Fqfalitpgw[address] [place], [place] [address]Dr. Antonella Medrano HCO3 (Bld) [Moles/Vol] 26.1 mmol/L Critically high 22.0-26 .0 [facility] Comment on above: Performed By: #### A BG ####[facility] Qnuoesqjnb89[address] [place], [place] [address]Dr. Antonella Medrano LPM Normal [facility] Comment on above: Performed By: #### A BG ####[facility] Oioyvfynbz259[address] [place], [place] [address]Dr. Antonella Medrano MINUTE VOLUME Normal [facility] Comment on above: Performed By: #### A BG ####[facility] Sxfkzkmylw685[address] [place], [place] [address]Dr. Antonella Medrano Oxygen (Bld) [Partial pressure] 78.1 mm[Hg] Critically low 80.0-100.0 [facility] Comment on above: Performed By: #### A BG ####[facility] Bnzmkwcknt0696 [place] [address]Dr. Antonella Medrano Oxygen saturation in Blood 97.0 % Normal 95.0-100.[address] [facility] Comment on above: Performed By: #### A BG ####[facility] Uyfpegmrea8486 [place] [address]Dr. Antonella Medrano PCO2 41.0 mmHg Normal 35.0-45.[address] [facility] Comment on above: Performed By: #### A BG ####[facility] Bceejcxcvg470[address] [place], [place] [address]Dr. Antonella Medrano PEEP [facility] Comment on above: Performed By: #### A BG ####[facility] Jccglyksqv3739[address] [place], [place] [address]Dr. Antonella Medrano pH (Bld) 7.412 [pH] Normal 7.350-7.[address] [facility] Comment on above: Performed By: #### A BG ####[facility] Uvzjfnnwbx947[address] [place], [place] [address]Dr. Antonella Medrano PIP [facility] Comment on above: Performed By: #### A BG ####[facility] Dcoextymvr[address] [place], [place] [address]Dr. Antonella Medrano PS [facility] Comment on above: Performed By: #### A BG ####[facility] Fgwemptyjt9[address] [place], [place] [address]Dr. Antonella Medrano PUNCTURE SITE RR [facility] Comment on above: Performed By: #### A BG ####[facility] Ufcksqlqen17[address] [place], [place] [address]Dr. Antonella Medrano RATE [facility] Comment on above: Performed By: #### A BG ####[facility] Vjhnpilbsq[address] [place], [place] [address]Dr. Antonella Medrano VENT MODE [facility] Comment on above: Performed By: #### A BG ####[facility] Icqliajted406[address] [place], [place] [address]Dr. Antonella Medrano VT [facility] Comment on above: Performed By: #### A BG ####[facility] Nkmpiccaas4539 [place] [phone]. Antonella Mitchell CBC AUTO DIFFon 11-08-2022 BASO # 0.1 103/ul Normal 0.0-0.1 [facility] Comment on above: Performed By: #### C BC ####[facility] Swpcfddreg86[address] [place] [address]Dr. Antonella Medrano Basophils/100 WBC (Bld) 0.7 % Normal 0.2-2.0 [facility] Comment on above: Performed By: #### C BC ####[facility] Wdctbutkmq0032[address] [place], [place] [address]Dr. Antonella Medrano EO # 0.3 103/ul Normal 0.0-0.7 [facility] Comment on above: Performed By: #### C BC ####[facility] Jpauicjgjo157[address] [place], [place] [address]Dr. Antonella Medrano Eosinophils/100 WBC (Bld) 4.5 % Normal 0.9-7.0 [facility] Comment on above: Performed By: #### C BC ####[facility] Ksnjcdqzea68[address] [place], [place] [address]Dr. Antonella Medrano Erythrocyte distribution width (RBC) [Ratio] 13.2 % Normal 11.0-15.0 [facility] Comment on above: Performed By: #### C BC ####[facility] Calbinjiqy907[address] [place], [place] [address]Dr. Antonella Medrano Hematocrit (Bld) [Volume fraction] 46.0 % Normal 36.0-48.0 [facility] Comment on above: Performed By: #### C BC ####[facility] Xnltfjjqum86[address] [place], [place] [address]Dr. Antonella Medrano Hemoglobin (Bld) [Mass/Vol] 15.5 g/dL Normal 12.0-16.0 [facility] Comment on above: Performed By: #### C BC ####[facility] Adiwscvpfb8[address] [place], [place] [address]Dr. Antonella Medrano IG # 0.09 10e3/ul Critically high 0.00-0.03 [facility] Comment on above: Performed By: #### C BC ####[facility] Ddezyyakyb0610 [place] [address]Dr. Antonella Medrano IG % 1.2 % Critically high 0.0-0.[address] [facility] Comment on above: Performed By: #### C BC ####[facility] Fgpzjlqsdi7873 [place] [address]Dr. Antonella Medrano LYMPH # 1.9 103/ul Normal 1.2-3.8 [facility] Comment on above: Performed By: #### C BC ####[facility] Cdrqvaemas4[address] [place], [place] [address]Dr. Antonella Medrano Lymphocytes/100 WBC (Bld) 25.9 % Normal 20.5-60.[address] [facility] Comment on above: Performed By: #### C BC ####[facility] Sasrchpnrb6[address] [place], [place] [address]Dr. Mariafilemon Medrano MANUAL DIFF REQ NO Normal [facility] Comment on above: Performed By: #### C BC ####[facility] Wvizzejnpx[address] [place], [place] [address]Dr. Antonella Medrano MCH (RBC) [Entitic mass] 28.7 pg Normal 26.7-34.[address] [facility] Comment on above: Performed By: #### C BC ####[facility] Vamvdvlxtj[address] [place], [place] [address]Dr. Antonella Medrano MCHC (RBC) [Mass/Vol] 33.7 g/dL Normal 29.9-35.2 [facility] Comment on above: Performed By: #### C BC ####[facility] Pgnelutphy[address] [place], [place] [address]Dr. Antonella Medrano MCV (RBC) [Entitic vol] 85.2 fL Normal 81.0-99.0 [facility] Comment on above: Performed By: #### C BC ####[facility] Xmwbutkpqb01[address] [place], [place] [address]Dr. Antonella Mitchell MONO # 0.7 103/ul Normal 0.3-0.8 [facility] Comment on above: Performed By: #### C BC ####[facility] Xzqgqdtoct5133 [place] [phone]. Antonella Medrano Monocytes/100 WBC (Bld) 9.4 % Normal 1.7-12.0 [facility] Comment on above: Performed By: #### C BC ####[facility] Ifdipxdnaq7736 [place] [phone]. Antonella Medrano NEUT # 4.3 103/ul Normal 1.4-6.5 [facility] Comment on above: Performed By: #### C BC ####[facility] Tuytzfwzdt5304 [place] [phone]. Antonella Medrano Neutrophils/100 WBC (Bld) 58.3 % Normal 43.0-75.0 [facility] Comment on above: Performed By: #### C BC ####[facility] Iknwwxrlqm1709 [place] [phone]. Antonella Medrano Platelet mean volume (Bld) [Entitic vol] 10.4 fL Normal 9.5-13.5 [facility] Comment on above: Performed By: #### C BC ####[facility] Jegiiegtir7034 [place] [phone]. Antonella Medrano PLT 301 103/ul Normal 150-450 [facility] Comment on above: Performed By: #### C BC ####[facility] Gwmxrkumem3928 [place] [phone]. Antonella Medrano RBC 5.40 106/ul Normal 4.20-5.40 [facility] Comment on above: Performed By: #### C BC ####[facility] Rlcexddclj7523 [place] [phone]. Antonella Medrano WBC 7.3 103/ul Normal 4.0-11.0 [facility] Comment on above: Performed By: #### C BC ####[facility] Gsietnykgm1108 [place] [phone]. Antonella Medrano CT CSPINE WO CONon CT CSPINE WO CON Normal [facility] CT HEAD WO CONon 11-08-2022 CT HEAD WO CON Normal [facility] CULTURE URINEon 11-08-2022 CULTURE URINE Culture Observations : HEAVY GROWTH OF MIXED GENITAL LUCY. NO POTENTIAL PATHOGENS SEEN. Normal [facility] Comment on above: Performed By: #### U RCX ####[facility] Ntrlqzvyku15[address] [place] [address]Dr. Antonella Medrano [facility] SARS-CoV-2 (COVID-19) RNA TAISHA+probe Ql (Unsp spec) Not detected Normal NOT DETECTED [facility] Comment on above: Result Comment: When diagnostic [...] for this test is supported by the Beaming Inspector of Health and Human Service's declaration that [...] be used). Performed By: #### C VDTBH ####[facility] Qoakgnkiuw[address] [place], [place] [address]Dr. Antonella Medrano ER URINE PROFILEon 3 Bilirubin Ql (U) Negative Normal NEGATIVE [facility] Comment on above: Performed By: #### U MICRO, ERUR ####[facility] Ynrtqruprz11[address] [place], [place] [address]Dr. Antonella Medrano Clarity (U) CLEAR Normal CLEAR [facility] Comment on above: Performed By: #### U MICRO, ERUR ####[facility] Ezilvapikv9[address] [place], [place] [address]Dr. Antonella Medrano Color (U) LT. YELLOW Normal YELLOW [facility] Comment on above: Performed By: #### U MICRO, ERUR ####[facility] Iigspthbcp48[address] [place] [address]Dr. Antonella LABOY A micrscopic examina tion will be performed if indicated. Normal [facility] Comment on above: Performed By: #### U MICRO, ERUR ####[facility] Ulrespgwof4[address] [place] [address]Dr. Antonella Medrano Glucose Ql (U) >1000 Abnormal NEGATIVE [facility] Comment on above: Performed By: #### U MICRO, ERUR ####[facility] Bvwkgdimzl[address] [place], [place] [address]Dr. Antonella Medrano Hemoglobin Ql (U) SMALL Abnormal NEGATIVE [facility] Comment on above: Performed By: #### U MICRO, ERUR ####[facility] Oulxtmuqeo98[address] [place], [place] [address]Dr. Antonella Medrano Ketones Ql (U) Negative Normal NEGATIVE [facility] Comment on above: Performed By: #### U MICRO, ERUR ####[facility] Udkicoffsp36[address] [place], [place] [address]Dr. Antonella Medrano LEUKOCYTES TRACE Abnormal NEGATIVE [facility] Comment on above: Performed By: #### U MICRO, ERUR ####[facility] Noctqqjzgw1720[address] [place], [place] [address]Dr. Antonella Medrano Nitrite Ql (U) Negative Normal NEGATIVE [facility] Comment on above: Performed By: #### U MICRO, ERUR ####[facility] Ukxskjerjb870[address] [place], [place] [address]Dr. Antonella Medrano pH (U) 5.5 [pH] Normal 5-9 [facility] Comment on above: Performed By: #### U MICRO, ERUR ####[facility] Gcbzzbnekb[address] [place], [place] [address]Dr. Antonella Medrano Protein (U) [Mass/Vol] 100 mg/dL Abnormal NEGAT LAZ/ TRACE [facility] Comment on above: Performed By: #### U MICRO, ERUR ####[facility] Medtlewmkm2765[address] [place], [place] [address]Dr. Antonella Medrano SPEC GRAVITY 1.010 Normal 1.005-<=1.[address] [facility] Comment on above: Performed By: #### U MICRO, ERUR ####[facility] Cvnshywbet83[address] [place], [place] [address]Dr. Antonella Medrano UR MICRO IND INDICATED Normal [facility] Comment on above: Performed By: #### U MICRO, ERUR ####[facility] Opulmxjkit97[address] [place], [place] [address]Dr. Antonella Medrano Urobilinogen Qn (U) 0.2 {Oleg'U}/dL Normal 0.2 - 1. [address] [facility] Comment on above: Performed By: #### U MICRO, ERUR ####[facility] Ghjmkdevsj090[address] [place], [place] [address]Dr. Antonella Medrano POINT OF CARE GLUCOSEon 10-24 Glucose [Mass/Vol] 290 mg/dL Critically high 74-106 [facility] Comment on above: Performed By: #### P OCGLUC ####[facility] Bwbognilma477[address] [place], [place] [address]Dr. Antonella Medrano PROF 14(COMP METB)on 023 Albumin [Mass/Vol] 3.2 g/dL Critically low 3.4-5.0 [facility] Comment on above: Performed By: #### H NAI, CMP ####[facility] Xidvxclddx[address] [place], [place] [address]Dr. Antonella Medrano Albumin/Globulin [Mass ratio] 0.8 {ratio} Normal [facility] Comment on above: Performed By: #### H NAI, CMP ####[facility] Uuioauqnia5[address] [place], [place] [address]Dr. Antonella Medrano ALP [Catalytic activity/Vol] 186 U/L Critically high 46-[address] [facility] Comment on above: Performed By: #### H NAI, CMP ####[facility] Gwyaiuypro[address] [place] [address]Dr. Antonella Medrano ALT [Catalytic activity/Vol] 23 U/L Normal 14-[address] [facility] Comment on above: Performed By: #### H ADAIRJAVED, CMP ####[facility] Lxmuprfces5089 [place] [phone]. Antonella Medrano Anion gap [Moles/Vol] 11.3 mmol/L Normal [facility] Comment on above: Performed By: #### H STROPN, CMP ####[facility] Pxjsjwydih07[address] [place] [address]Dr. Antonella Medrano AST [Catalytic activity/Vol] 21 U/L Normal 15-37 [facility] Comment on above: Performed By: #### H NAI, CMP ####[facility] Diwizzmnra80[address] [place] [address]Dr. Antonella Medrano Bilirubin [Mass/Vol] 0.3 mg/dL Normal 0.2-1.0 [facility] Comment on above: Performed By: #### H NAI, CMP ####[facility] Mplydvessp064[address] [place], [place] [address]Dr. Antonella Medrano Calcium [Mass/Vol] 9.6 mg/dL Normal 8.5-10.[address] [facility] Comment on above: Performed By: #### H NAI, CMP ####[facility] Vbueentpgn[address] [place], [place] [address]Dr. Antonella Medrano Chloride [Moles/Vol] 98 mmol/L Normal 98-107 [facility] Comment on above: Performed By: #### H NAI, CMP ####[facility] Wcfetpnnrr[address] [place], [place] [address]Dr. Antonella Medrano CO2 [Moles/Vol] 30.0 mmol/L Normal 21.0-32.0 [facility] Comment on above: Performed By: #### H STROJAVED, CMP ####[facility] Wvdemcqlxs[address] [place] [address]Dr. Antonella Medrano Creatinine [Mass/Vol] 0.75 mg/dL Normal 0.55-1.02 [facility] Comment on above: Performed By: #### H STROPN, CMP ####[facility] Qypqemrssq45[address] [place] [address]Dr. Antonella Medrano EGFR-AF MALDIVIAN >60 Normal >=60 [facility] Comment on above: Performed By: #### H STROPN, CMP ####[facility] Kugsrmzsvl[address] [place] [address]Dr. Antonella Medrano EGFR-NON AF MALDIVIAN >60 Normal >=[address] [facility] Comment on above: Performed By: #### H STROPN, CMP ####[facility] Uxrxauycsr6954 [place] [address]Dr. Antonella Medrano Globulin (S) [Mass/Vol] 4.0 g/dL Normal [facility] Comment on above: Performed By: #### H STROPN, CMP ####[facility] Fvqjwfsevj13[address] [place] [address]Dr. Antonella Medrano Glucose [Mass/Vol] 292 mg/dL Critically high 74-106 [facility] Comment on above: Performed By: #### H STROPN, CMP ####[facility] [address]buziubxu[address] [place], [place] [address]Dr. Antonella Medrano Potassium [Moles/Vol] 4.3 mmol/L Normal 3.5-5.[address] [facility] Comment on above: Performed By: #### H STROPN, CMP ####[facility] Mbrzdldtpy89[address] [place], [place] [address]Dr. Antonella Medrano Protein [Mass/Vol] 7.2 g/dL Normal 6.4-8.[address] [facility] Comment on above: Performed By: #### H STROPN, CMP ####[facility] Qcojpiouwo[address] [place], [place] [address]Dr. Antonella Medrano Sodium [Moles/Vol] 135 mmol/L Critically low 136-145 [facility] Comment on above: Performed By: #### H STROPN, CMP ####[facility] Jgwbkwjgqz[address] [place], [place] [address]Dr. Antonella Medrano Urea nitrogen [Mass/Vol] 14.0 mg/dL Normal 7.0-18.[address] [facility] Comment on above: Performed By: #### H STROPN, CMP ####[facility] Kylbtssuok[address] [place], [place] [address]Dr. Antonella Medrano Urea nitrogen/Creatinine [Mass ratio] 18.7 mg/mg Normal [facility] Comment on above: Performed By: #### H NAI, CMP ####[facility] Ttaluqrvut[address] [place], [place] [address]Dr. Antonella Medrano TROPONIN, HIGH SENSITIVITYon 11-08-2022 HSTROP 69.8 pg/mL Critically high 4.0-51.3 [facility] Comment on above: Result Comment: CUT- OFF POINTS HAVE BEEN ESTABLISHED BASED ON THE FOURTH UNIVERSAL DEFINITIONS OF MYOCARDIALINFARCTION. THE UPPER REFERENCE LIMIT (URL) OF TROPONIN, DEFINED THE 99TH PERCENTILE OFcTnI DISTRIBUTION IN A REFERENCE POPULATION, HAS BEEN CONFIRMED THE DECISION THRESHOLDFOR SC DIAGNOSIS. Performed By: #### H NAI, CMP ####[facility] [address]qvgzzvc[address] [place], [place] [address]Dr. Antonella Medrano HSTROP 69.8 pg/mL Critically high 4.0-51.3 [facility] Comment on above: Result Comment: CUT- OFF POINTS HAVE BEEN ESTABLISHED BASED ON THE FOURTH UNIVERSAL DEFINITIONS OF MYOCARDIALINFARCTION. THE UPPER REFERENCE LIMIT (URL) OF TROPONIN, DEFINED THE 99TH PERCENTILE OFcTnI DISTRIBUTION IN A REFERENCE POPULATION, HAS BEEN CONFIRMED THE DECISION THRESHOLDFOR SC DIAGNOSIS. Performed By: #### H NAI ####[facility] Qpfnhhksnu[address] [place], [place] [address]Dr. Antonella Medrano URINE MICROSCOPIC ONLYon BACTERIA TRACE Abnormal NONE SEEN [facility] Comment on above: Performed By: #### U MICRO, ERUR ####[facility] Pkbyatjefo[address] [place], [place] [address]Dr. Antonella Medrano Bacteria identified Cx Nom (U) INDICATED Normal [facility] Comment on above: Performed By: #### U MICRO, ERUR ####[facility] Bawhtlsvne[address] [place], [place] [address]Dr. Antonella Medrano CAST NONE SEEN Normal NONE SEEN [facility] Comment on above: Performed By: #### U MICRO, ERUR ####[facility] Kxmrrapeex[address] [place], [place] [address]Dr. Antonella Medrano Crystals LM Nom (Urine sed) NONE SEEN Normal NONE SEEN [facility] Comment on above: Performed By: #### U MICRO, ERUR ####[facility] [address] [place] [address]Dr. Antonella Mitchell Epithelial cells LM Ql (Urine sed) FEW Abnormal NONE SEEN /RARE [facility] Comment on above: Performed By: #### U MICRO, ERUR ####[facility] [address]covndo[address] [place] [address]Dr. Marialan Medrano MUCOUS NONE SEEN Normal NONE SEEN [facility] Comment on above: Performed By: #### U MICRO, ERUR ####[facility] Vznjcatbcw[address] [place] [address]Dr. Antonella Medrano RBC 2-5 Abnormal 0-2 [facility] Comment on above: Performed By: #### U MICRO, ERUR ####[facility] [address]hfktra[address] [place] [address]Dr. Antonella Medrano WBC 10-20 Abnormal NONE SEEN [facility] Comment on above: Performed By: #### U MICRO, ERUR ####[facility] [address]tyrpnw[address] [place] [address]Dr. Mariafilemon Medrano YEAST PRESENT Abnormal NONE SEEN [facility] Comment on above: Result Comment: 3+ b udding Performed By: #### U MICRO, ERUR ####[facility] Metqlutfzn[address] [place] [address]Dr. Antonella Medrano XR CHEST 2 Von 11-08-2022 XR CHEST 2 V Normal [facility] XR KNEE RT 4V or >on 023 XR KNEE RT 4V or > Normal [facility] CT CSPINE WO CONon CT CSPINE WO CON Normal [facility] CT HEAD WO CONon 08-23-2022 CT HEAD WO CON Normal [facility] XR CHEST 1 Von 08-23-2022 XR CHEST 1 V Normal [facility] XR HIP LT 2 3V W PELVISon XR HIP LT 2 3V W PELVIS Normal [facility] CULTURE URINEon 08-02-2022 CULTURE URINE Normal [facility] Comment on above: Performed By: #### U RCX ####[facility] [address] [place] [phone]. Antonella Medrano CBC AUTO DIFFon 07-31-2022 BASO # 0.0 103/ul Normal 0.0-0.1 [facility] Comment on above: Performed By: #### C BC ####[facility] [address]vbtymbnkd[address] [place] [phone]. Mariafilemon Medrano Basophils/100 WBC (Bld) 0.4 % Normal 0.2-2.0 [facility] Comment on above: Performed By: #### C BC ####[facility] Rpjgdkulnt[address] [place], [place] [address]Dr. Mariafilemon Medrano EO # 0.1 103/ul Normal 0.0-0.7 [facility] Comment on above: Performed By: #### C BC ####[facility] Cmgzvxrmip107[address] [place], [place] [address]Dr. Mariafilemon Medrano Eosinophils/100 WBC (Bld) 1.3 % Normal 0.9-7.0 [facility] Comment on above: Performed By: #### C BC ####[facility] Ebwxrilmgu737[address] [place], [place] [address]Dr. Antonella Medrano Erythrocyte distribution width (RBC) [Ratio] 13.4 % Normal 11.0-15.0 [facility] Comment on above: Performed By: #### C BC ####[facility] Lxgixlshdr39[address] [place], [place] [address]Dr. Antonella Medrano Hematocrit (Bld) [Volume fraction] 43.4 % Normal 36.0-48.0 [facility] Comment on above: Performed By: #### C BC ####[facility] Ufyqmeusxp722[address] [place], [place] [address]Dr. Antonella Medrano Hemoglobin (Bld) [Mass/Vol] 14.6 g/dL Normal 12.0-16.0 [facility] Comment on above: Performed By: #### C BC ####[facility] Ablmqeaagb648[address] [place], [place] [address]Dr. Antonella Medrano IG # 0.05 10e3/ul Critically high 0.00-0.03 [facility] Comment on above: Performed By: #### C BC ####[facility] Jjsfgbtilk[address] [place] [address]Dr. Mariafilemon Medrano IG % 0.6 % Critically high 0.0-0.[address] [facility] Comment on above: Performed By: #### C BC ####[facility] Tnimguyjmz[address] [place] [address]Dr. Mariafilemon Medrano LYMPH # 1.0 103/ul Critically low 1.2-3.[address] [facility] Comment on above: Performed By: #### C BC ####[facility] Gnlnlahzbw6[address] [place], [place] [address]Dr. Mariafilemon Medrano Lymphocytes/100 WBC (Bld) 13.4 % Critically low 20.5-60.[address] [facility] Comment on above: Performed By: #### C BC ####[facility] Ixfwbznidv538[address] [place], [place] [address]Dr. Antonella Medrano MANUAL DIFF REQ NO Normal [facility] Comment on above: Performed By: #### C BC ####[facility] Vkddnkonwr[address] [place], [place] [address]Dr. Antonella Mitchell MCH (RBC) [Entitic mass] 28.9 pg Normal 26.7-34.[address] [facility] Comment on above: Performed By: #### C BC ####[facility] Pgnqzcgtyv[address] [place], [place] [address]Dr. Antonella Mitchell MCHC (RBC) [Mass/Vol] 33.6 g/dL Normal 29.9-35.2 [facility] Comment on above: Performed By: #### C BC ####[facility] Hnyzkxpaoy48[address] [place], [place] [address]DrGerman Mariafilemon Medrano MCV (RBC) [Entitic vol] 85.9 fL Normal 81.0-99.0 [facility] Comment on above: Performed By: #### C BC ####[facility] Egdkbwqpkl675[address] [place], [place] [address]DrGerman Medrano MONO # 0.7 103/ul Normal 0.3-0.8 [facility] Comment on above: Performed By: #### C BC ####[facility] Pptykyydoe[address] [place] [phone]. Antonella Medrano Monocytes/100 WBC (Bld) 9.0 % Normal 1.7-12.0 [facility] Comment on above: Performed By: #### C BC ####[facility] Ukndsleurq28[address] [place] [phone]. Antonella Medrano NEUT # 5.9 103/ul Normal 1.4-6.5 [facility] Comment on above: Performed By: #### C BC ####[facility] Xdxwvuxutb0813 [place] [phone]. Antonella Medrano Neutrophils/100 WBC (Bld) 75.3 % Critically high 43.0-75.[address] [facility] Comment on above: Performed By: #### C BC ####[facility] Hsyixeflof37[address] [place] [phone]. Antonella Medrano Platelet mean volume (Bld) [Entitic vol] 10.9 fL Normal 9.5-13.[address] [facility] Comment on above: Performed By: #### C BC ####[facility] [address]zbsacwa[address] [place] [phone]. Antonella Medrano PLT 245 103/ul Normal 150-450 [facility] Comment on above: Performed By: #### C BC ####[facility] Mkvifatewx3[address] [place] [phone]. Antonella Medrano RBC 5.05 106/ul Normal 4.20-5.40 [facility] Comment on above: Performed By: #### C BC ####[facility] Nijyyhvflc58[address] [place] [phone]. Antonella Medrano WBC 7.8 103/ul Normal 4.0-11.0 [facility] Comment on above: Performed By: #### C BC ####[facility] Edfaoocwdr4[address] [place] [phone]. Antonella Medrano CT ABD/PELV W CONon 07-31-[address] ABD/PELV W CON Normal [facility] CT CSPINE WO CONon 2 CT CSPINE WO CON Normal [facility] CT HEAD WO CONon 07-31-2022 CT HEAD WO CON Normal [facility] ER URINE PROFILEon 2 Bilirubin Ql (U) Negative Normal NEGATIVE [facility] Comment on above: Performed By: #### U MICRO, ERUR ####[facility] W[address]jsjqixi[address] [place] [address]Dr. Antonella Medrano Clarity (U) CLEAR Normal CLEAR [facility] Comment on above: Performed By: #### U MICRO, ERUR ####[facility] Gdmkvpksem40[address] [place] [address]Dr. Antonella Medrano Color (U) LT. YELLOW Normal YELLOW [facility] Comment on above: Performed By: #### U MICRO, ERUR ####[facility] V[address]izrmjbbt[address] [place] [address]Dr. Antonella Medrano ERUAHD A micrscopic examina tion will be performed if indicated. Normal [facility] Comment on above: Performed By: #### U MICRO, ERUR ####[facility] R[address]koeaia[address] [place] [address]Dr. Antonella Medrano Glucose Ql (U) >1000 Abnormal NEGATIVE [facility] Comment on above: Performed By: #### U MICRO, ERUR ####[facility] Tbkhgazfsg24[address] [place] [address]Dr. Antonella Medrano Hemoglobin Ql (U) SMALL Abnormal NEGATIVE [facility] Comment on above: Performed By: #### U MICRO, ERUR ####[facility] Zsc[address]dfde[address] [place] [address]Dr. Antonella Medrano Ketones Ql (U) Negative Normal NEGATIVE [facility] Comment on above: Performed By: #### U MICRO, ERUR ####[facility] [address] [place], [place] [address]Dr. Antonella Medrano LEUKOCYTES Negative Normal NEGATIVE [facility] Comment on above: Performed By: #### U MICRO, ERUR ####[facility] Gjbjxwrgeu[address] [place], [place] [address]Dr. Antonella Medrano Nitrite Ql (U) Negative Normal NEGATIVE [facility] Comment on above: Performed By: #### U MICRO, ERUR ####[facility] Rblybfbmyg37[address] [place] [address]DrGerman Medrano pH (U) 5.5 [pH] Normal 5-[address] [facility] Comment on above: Performed By: #### U MICRO, ERUR ####[facility] Zeaadnbzgs46[address] [place] [address]DrGerman Medrano Protein (U) [Mass/Vol] 30 mg/dL Abnormal NEGAT LAZ/ TRACE [facility] Comment on above: Performed By: #### U MICRO, ERUR ####[facility] Cfpvbxldia[address] [place], [place] [address]Dr. Antonella Medrano SPEC GRAVITY 1.010 Normal 1.005-<=1.[address] [facility] Comment on above: Performed By: #### U MICRO, ERUR ####[facility] Saecnneihz[address] [place], [place] [address]Dr. Antonella Medrano UR MICRO IND INDICATED Normal [facility] Comment on above: Performed By: #### U MICRO, ERUR ####[facility] Lzcxrdohgh[address] [place], [place] [address]Dr. Antonella Medrano Urobilinogen Qn (U) 0.2 {Oleg'U}/dL Normal 0.2 - 1. [address] [facility] Comment on above: Performed By: #### U MICRO, ERUR ####[facility] Pehvhjrpfn[address] [place], [place] [address]DrGerman Medrano PROF 14(COMP METB)on 022 Albumin [Mass/Vol] 3.0 g/dL Critically low 3.4-5.0 [facility] Comment on above: Performed By: #### C MP ####[facility] Crvnmosdpa[address] [place], [place] [address]DrGerman Medrano Albumin/Globulin [Mass ratio] 0.8 {ratio} Normal [facility] Comment on above: Performed By: #### C MP ####[facility] Wylcoccgof[address] [place], [place] [address]Dr. Antonella Medrano ALP [Catalytic activity/Vol] 136 U/L Critically high 46-116 [facility] Comment on above: Performed By: #### C MP ####[facility] Ekswdypxdp[address] [place] [address]Dr. Antonella Medrano ALT [Catalytic activity/Vol] 11 U/L Critically low 14-59 [facility] Comment on above: Performed By: #### C MP ####[facility] Ygnljizijl67[address] [place] [address]Dr. Antonella Medrano Anion gap [Moles/Vol] 7.7 mmol/L Normal [facility] Comment on above: Performed By: #### C MP ####[facility] Bbpewndjbf12[address] [place], [place] [address]Dr. Antonella Medrano AST [Catalytic activity/Vol] 12 U/L Critically low 15-37 [facility] Comment on above: Performed By: #### C MP ####[facility] Byqvfhgruk139[address] [place], [place] [address]Dr. Antonella Mitchell Bilirubin [Mass/Vol] 0.3 mg/dL Normal 0.2-1.0 [facility] Comment on above: Performed By: #### C MP ####[facility] Wwyhajfuik[address] [place], [place] [address]Dr. Antonella Mitchell Calcium [Mass/Vol] 8.5 mg/dL Normal 8.5-10.1 [facility] Comment on above: Performed By: #### C MP ####[facility] Sjjhuuzwke[address] [place], [place] [address]Dr. Antonella Mitchell Chloride [Moles/Vol] 100 mmol/L Normal 98-107 [facility] Comment on above: Performed By: #### C MP ####[facility] Rzgnfwjywf[address] [place], [place] [address]Dr. Antonella Mitchell CO2 [Moles/Vol] 27.2 mmol/L Normal 21.0-32.0 [facility] Comment on above: Performed By: #### C MP ####[facility] Xohmifrocs[address] [place], [place] [address]Dr. Antonella Mitchell Creatinine [Mass/Vol] 1.02 mg/dL Normal 0.55-1.[address] [facility] Comment on above: Performed By: #### C MP ####[facility] Vgjsyhjeii[address] [place] [address]Dr. Antonella Medrano EGFR-AF MALDIVIAN >60 Normal >=[address] [facility] Comment on above: Performed By: #### C MP ####[facility] Lkitzgvxup24[address] [place] [address]Dr. Antonella Mitchell EGFR-NON AF MALDIVIAN 54 mL/min/1.73m2 Critically low >=[address] [facility] Comment on above: Performed By: #### C MP ####[facility] Qhgjacpixw85[address] [place], [place] [address]Dr. Antonella Medrano Globulin (S) [Mass/Vol] 3.6 g/dL Normal [facility] Comment on above: Performed By: #### C MP ####[facility] Oakatbynaw[address] [place], [place] [address]Dr. Antonella Medrano Glucose [Mass/Vol] 453 mg/dL Critically high 74-106 [facility] Comment on above: Performed By: #### C MP ####[facility] Vakljlmczk[address] [place], [place] [address]Dr. Antonella Medrano Potassium [Moles/Vol] 3.9 mmol/L Normal 3.5-5.[address] [facility] Comment on above: Performed By: #### C MP ####[facility] Fxijlhzyvd8[address] [place], [place] [address]Dr. Antonella Medrano Protein [Mass/Vol] 6.6 g/dL Normal 6.4-8.[address] [facility] Comment on above: Performed By: #### C MP ####[facility] Cdvtvwucbt41[address] [place], [place] [address]Dr. Antonella Medrano Sodium [Moles/Vol] 131 mmol/L Critically low 136-145 [facility] Comment on above: Performed By: #### C MP ####[facility] Ntaccunqby450[address] [place], [place] [address]Dr. Antonella Medrano Urea nitrogen [Mass/Vol] 27.0 mg/dL Critically high 7.0-18.0 [facility] Comment on above: Performed By: #### C MP ####[facility] Pnptwlgdns025[address] [place], [place] [address]Dr. Antonella Medrano Urea nitrogen/Creatinine [Mass ratio] 26.5 mg/mg Normal [facility] Comment on above: Performed By: #### C MP ####[facility] Afuavqwszi20[address] [place], [place] [address]Dr. Antonella Medrano URINE MICROSCOPIC ONLYon BACTERIA TRACE Abnormal NONE SEEN [facility] Comment on above: Performed By: #### U MICRO, ERUR ####[facility] Vyjxvdmjja[address] [place], [place] [address]Dr. Antonella Medrano Bacteria identified Cx Nom (U) INDICATED Normal [facility] Comment on above: Performed By: #### U MICRO, ERUR ####[facility] Zdvabcfoou[address] [place], [place] [address]Dr. Antonella Medrano CAST NONE SEEN Normal NONE SEEN [facility] Comment on above: Performed By: #### U MICRO, ERUR ####[facility] Ijbtetcaxp[address] [place], [place] [address]Dr. Antonella Medrano Crystals LM Nom (Urine sed) NONE SEEN Normal NONE SEEN [facility] Comment on above: Performed By: #### U MICRO, ERUR ####[facility] Lesnmkiyhh364[address] [place], [place] [address]Dr. Antonella Medrano Epithelial cells LM Ql (Urine sed) RARE Normal NONE SEEN /RARE [facility] Comment on above: Performed By: #### U MICRO, ERUR ####[facility] Tzybdipfsf94[address] [place], [place] [address]Dr. Antonella Medrano MUCOUS NONE SEEN Normal NONE SEEN [facility] Comment on above: Performed By: #### U MICRO, ERUR ####[facility] Qttwpurmfd[address] [place], [place] [address]Dr. Antonella Medrano RBC NONE SEEN Abnormal 0-2 [facility] Comment on above: Performed By: #### U MICRO, ERUR ####[facility] [address] [place] [address]. Antonella Medrano WBC 5-10 Abnormal NONE SEEN [facility] Comment on above: Performed By: #### U MICRO, ERUR ####[facility] [address]uwettfm[address] [place] [address]Dr. Antonella Mitchell YEAST PRESENT Abnormal NONE SEEN [facility] Comment on above: Performed By: #### U MICRO, ERUR ####[facility] Xywqxwwkss[address] [place] [address]Dr. Antonella Medrano Follow-Upon 07-18-2022 Follow-Up [id number] Rylan Blanc 1955 F Date Provider Department Center 07/18/2022 FANY JACOBS [facility] No family history on file Level of Service:59945 [place] OFFICE/OUTPATIENT ESTABLISHED MOD MDM 30-39 MIN Reason for Visit and Comments: Edema [[id number]] Coronary Artery Disease [187] Normal [facility] PROF CHEM 8 (BAS METB)on Anion gap [Moles/Vol] 12.7 mmol/L Normal [facility] Comment on above: Performed By: #### B MP ####[facility] Xggaobdyjz[address] [place] [address]Dr. Antonella Mitchell Calcium [Mass/Vol] 9.4 mg/dL Normal 8.5-10.[address] [facility] Comment on above: Performed By: #### B MP ####[facility] Uaxlumqnnm[address] [place] [address]Dr. Antonella Medrano Chloride [Moles/Vol] 96 mmol/L Critically low 98-107 [facility] Comment on above: Performed By: #### B MP ####[facility] Cfbtstlwdl040[address] [place] [address]Dr. Antonella Medrano CO2 [Moles/Vol] 28.2 mmol/L Normal 21.0-32.[address] [facility] Comment on above: Performed By: #### B MP ####[facility] Xrstoisyfx[address] [place] [address]Dr. Mariafilemon Medrano Creatinine [Mass/Vol] 0.89 mg/dL Normal 0.55-1.[address] [facility] Comment on above: Performed By: #### B MP ####[facility] Hevbdsfrgt[address] [place] [phone]. Mariafilemon Mitchell EGFR-AF MALDIVIAN >60 Normal >=[address] [facility] Comment on above: Performed By: #### B MP ####[facility] Vexxwqtdra90[address] [place] [phone]. Mariafilemon Mitchell EGFR-NON AF MALDIVIAN >60 Normal >=[address] [facility] Comment on above: Performed By: #### B MP ####[facility] Nvedvmbshw0565 [place] [phone]. Antonella Medrano Glucose [Mass/Vol] 395 mg/dL Critically high 74-106 [facility] Comment on above: Performed By: #### B MP ####[facility] Ekrufkfjtv[address] [place] [address]Dr. Antonella Medrano Potassium [Moles/Vol] 4.9 mmol/L Normal 3.5-5.[address] [facility] Comment on above: Performed By: #### B MP ####[facility] Eqzrcrfykw224[address] [place] [phone]. Antonella Medrano Sodium [Moles/Vol] 132 mmol/L Critically low 136-145 [facility] Comment on above: Performed By: #### B MP ####[facility] Vhbuhwwbbk67[address] [place] [phone]. Antonella Medrano Urea nitrogen [Mass/Vol] 29.0 mg/dL Critically high 7.0-18.[address] [facility] Comment on above: Performed By: #### B MP ####[facility] Eizyichibf81[address] [place] [phone]. Antonella Medrano Urea nitrogen/Creatinine [Mass ratio] 32.6 mg/mg Normal [facility] Comment on above: Performed By: #### B MP ####[facility] Pgcywkhsvm9578 [place] [phone]. Antonella Medrano POINT OF CARE GLUCOSEon 082 Glucose [Mass/Vol] 82 mg/dL Normal 74-[address] [facility] Comment on above: Performed By: #### P OCGLUC ####[facility] Vllowvleme[address] [place] [address]Dr. Antonella Medrano Glucose [Mass/Vol] 113 mg/dL Critically high 74-106 [facility] Comment on above: Performed By: #### P OCGLUC ####[facility] Txjiwwbqfe97[address] [place] [address]Dr. Antonella Medrano PROF 14(COMP METB)on 022 Albumin [Mass/Vol] 2.2 g/dL Critically low 3.4-5.0 [facility] Comment on above: Performed By: #### C MP ####[facility] Wochqnszci39[address] [place] [address]Dr. Antonella Medrano Albumin/Globulin [Mass ratio] 0.7 {ratio} Normal [facility] Comment on above: Performed By: #### C MP ####[facility] Lurnqrhhxf[address] [place], [place] [address]Dr. Antonella Medrano ALP [Catalytic activity/Vol] 80 U/L Normal 46-[address] [facility] Comment on above: Performed By: #### C MP ####[facility] [address]laihjatsn[address] [place], [place] [address]Dr. Antonella Medrano ALT [Catalytic activity/Vol] 9 U/L Critically low 14-[address] [facility] Comment on above: Performed By: #### C MP ####[facility] Eowwngrima39[address] [place] [address]Dr. Antonella Medrano Anion gap [Moles/Vol] 10.4 mmol/L Normal [facility] Comment on above: Performed By: #### C MP ####[facility] Tdocefboym[address] [place] [address]Dr. Antonella Medrano AST [Catalytic activity/Vol] 13 U/L Critically low 15-[address] [facility] Comment on above: Performed By: #### C MP ####[facility] Bztizmbhrq37[address] [place] [address]Dr. Antonella Medrano Bilirubin [Mass/Vol] 0.3 mg/dL Normal 0.2-1.[address] [facility] Comment on above: Performed By: #### C MP ####[facility] Hpeebxbhcz4[address] [place] [address]Dr. Antonella Medrano Calcium [Mass/Vol] 7.9 mg/dL Critically low 8.5-10.1 [facility] Comment on above: Performed By: #### C MP ####[facility] Ljneqiekij38[address] [place] [address]Dr. Antonella Medrano Chloride [Moles/Vol] 107 mmol/L Normal 98-[address] [facility] Comment on above: Performed By: #### C MP ####[facility] Cnfrtlgvzr5[address] [place] [address]Dr. Antonella Medrano CO2 [Moles/Vol] 20.6 mmol/L Critically low 21.0-32.[address] [facility] Comment on above: Performed By: #### C MP ####[facility] Vivpmzivkg[address] [place], [place] [address]Dr. Antonella Medrano Creatinine [Mass/Vol] 0.88 mg/dL Normal 0.55-1.[address] [facility] Comment on above: Performed By: #### C MP ####[facility] Iyrbobbrnc[address] [place], [place] [address]Dr. Antonella Medrano EGFR-AF MALDIVIAN >60 Normal >=[address] [facility] Comment on above: Performed By: #### C MP ####[facility] G[address]uz[address]pzr[address] [place] [address]Dr. Antonella Medrano EGFR-NON AF MALDIVIAN >60 Normal >=[address] [facility] Comment on above: Performed By: #### C MP ####[facility] Xlynzvfzmg[address] [place] [address]Dr. Antonella Medrano Globulin (S) [Mass/Vol] 3.0 g/dL Normal [facility] Comment on above: Performed By: #### C MP ####[facility] Vssqymwqrh[address] [place] [address]Dr. Antonella Medrano Glucose [Mass/Vol] 120 mg/dL Critically high 74-106 T [facility] Comment on above: Performed By: #### C MP ####[facility] Mjtckmqqcz[address] [place] [address]Dr. Antonella Medrano Potassium [Moles/Vol] 4.0 mmol/L Normal 3.5-5.[address] [facility] Comment on above: Performed By: #### C MP ####[facility] Hzwcxagmjq2827[address] [place], [place] [address]Dr. Mariafilemon Medrano Protein [Mass/Vol] 5.2 g/dL Critically low 6.4-8.2 [facility] Comment on above: Performed By: #### C MP ####[facility] Pmeqysdogp[address] [place], [place] [address]Dr. Mariafilemon Medrano Sodium [Moles/Vol] 134 mmol/L Critically low 136-145 Th [facility] Comment on above: Performed By: #### C MP ####[facility] Dxhrwdbseb7[address] [place], [place] [address]Dr. Antonella Medrano Urea nitrogen [Mass/Vol] 25.0 mg/dL Critically high 7.0-18.[address] [facility] Comment on above: Performed By: #### C MP ####[facility] Ckjqzvgxns[address] [place], [place] [address]Dr. Mariafilemon Mitchell Urea nitrogen/Creatinine [Mass ratio] 28.4 mg/mg Normal [facility] Comment on above: Performed By: #### C MP ####[facility] Ovfoxvyrny64[address] [place], [place] [address]Dr. Antonella Medrano AMMONIAon 05-13-2022 Ammonia (P) [Moles/Vol] 24 umol/L Normal - [facility] Comment on above: Performed By: #### A MM ####[facility] Fsgynpllmg0035[address] [place], [place] [address]Dr. Antonella Medrano BLOOD GASES BTYon 05-13-2022 02 MODE ROOM AIR Normal [facility] Comment on above: Performed By: #### A BG ####[facility] Qwuwpovbga349[address] [place], [place] [address]Dr. Antonella Medrano ALLENS TEST Positive Normal [facility] Comment on above: Performed By: #### A BG ####[facility] Pfwsouctus[address] [place] [address]Dr. Antonella Medrano Base excess Calc (Bld) [Moles/Vol] 0.7 mmol/L Normal -2.0-2.[address] [facility] Comment on above: Performed By: #### A BG ####[facility] Drmjpsskkj[address] [place] [address]Dr. Antonella Medrano BIPAP PRESSURE Normal [facility] Comment on above: Performed By: #### A BG ####[facility] Mxbbckhlpc5664[address] [place], [place] [address]Dr. Antonella Medrano CPAP Normal [facility] Comment on above: Performed By: #### A BG ####[facility] Bwjcywewws69[address] [place], [place] [address]Dr. Antonella Medrano FIO2 Normal [facility] Comment on above: Performed By: #### A BG ####[facility] Vttxgpdfsl467[address] [place], [place] [address]Dr. Antonella Medrano HCO3 (Bld) [Moles/Vol] 24.4 mmol/L Normal 22.0-26.0 [facility] Comment on above: Performed By: #### A BG ####[facility] Wzkcpuqsjc3222[address] [place], [place] [address]Dr. Antonella Medrano LPM [facility] Comment on above: Performed By: #### A BG ####[facility] Buvlcrkfoz67[address] [place], [place] [address]Dr. Antonella Medrano MINUTE VOLUME Normal [facility] Comment on above: Performed By: #### A BG ####[facility] Ocmescdzmp[address] [place], [place] [address]Dr. Antonella Medrano Oxygen (Bld) [Partial pressure] 36.8 mm[Hg] Critically low 80.0-100.[address] [facility] Comment on above: Result Comment: mixe d/venous blood Performed By: #### A BG ####[facility] Cizbxapino715[address] [place], [place] [address]Dr. Antonella Medrano Oxygen saturation in Blood 74.3 % Critically low 95.0-100.[address] [facility] Comment on above: Result Comment: mixe d/venous blood Performed By: #### A BG ####[facility] Rpqwafivim[address] [place] [address]Dr. Antonella Medrano PCO2 40.2 mmHg Normal 35.0-45.[address] [facility] Comment on above: Performed By: #### A BG ####[facility] Xxiyywefrg7[address] [place] [address]Dr. Antonella Medrano PEEP [facility] Comment on above: Performed By: #### A BG ####[facility] Eutulgfsel32[address] [place] [address]Dr. Antonella Medrano pH (Bld) 7.409 [pH] Normal 7.350-7.[address] [facility] Comment on above: Performed By: #### A BG ####[facility] Vnjbckcyrl7[address] [place], [place] [address]Dr. Antonella Medrano PIP [facility] Comment on above: Performed By: #### A BG ####[facility] Iuczvwrdsx156[address] [place], [place] [address]Dr. Antonella Medrano PS [facility] Comment on above: Performed By: #### A BG ####[facility] Fsihevhbnu5788[address] [place], [place] [address]Dr. Antonella Medrano PUNCTURE SITE RR [facility] Comment on above: Performed By: #### A BG ####[facility] Hxcudubbfr738[address] [place], [place] [address]Dr. Antonella Medrano RATE [facility] Comment on above: Performed By: #### A BG ####[facility] Uihglqmzgm[address] [place], [place] [address]Dr. Antonella Medrano VENT MODE [facility] Comment on above: Performed By: #### A BG ####[facility] Hxspdozsbo[address] [place], [place] [address]Dr. Antonella Medrano [place] [facility] Comment on above: Performed By: #### A BG ####[facility] Jtdybxtrze9[address] [place], [place] [address]Dr. Antonella Medrano CARDIAC VICK 3-6on 2 CK [Catalytic activity/Vol] 38 U/L Normal 26-192 [facility] Comment on above: Performed By: #### C MREP ####[facility] Vegmxlfvzu75[address] [place] [id number]. Antonella Medrano CK.MB [Mass/Vol] 1.28 ng/mL Normal <=3.60 [facility] Comment on above: Performed By: #### C MREP ####[facility] Impioxrmdz260[address] [place] [phone]. Antonella Medrano HSTROP 58.4 pg/mL Critically high 4.0-51.[address] [facility] Comment on above: Result Comment: CUT- OFF POINTS HAVE BEEN ESTABLISHED BASED ON THE FOURTH UNIVERSAL DEFINITIONS OF MYOCARDIALINFARCTION. THE UPPER REFERENCE LIMIT (URL) OF TROPONIN, DEFINED THE 99TH PERCENTILE OFcTnI DISTRIBUTION IN A REFERENCE POPULATION, HAS BEEN CONFIRMED THE DECISION THRESHOLDFOR SC DIAGNOSIS. Performed By: #### C MREP ####[facility] Erz[address]mgtdq[address] [place] [address]Dr. Antonella Medrano CK [Catalytic activity/Vol] 45 U/L Normal 26-[address] [facility] Comment on above: Performed By: #### C MREP ####[facility] Dywynpbttd8[address] [place] [address]Dr. Antonella Medrano CK.MB [Mass/Vol] 1.53 ng/mL Normal <=3.60 [facility] Comment on above: Performed By: #### C MREP ####[facility] Qcrtjurwtw3[address] [place] [address]Dr. Antonella Medrano HSTROP 56.7 pg/mL Critically high 4.0-51.3 [facility] Comment on above: Result Comment: CUT- OFF POINTS HAVE BEEN ESTABLISHED BASED ON THE FOURTH UNIVERSAL DEFINITIONS OF MYOCARDIALINFARCTION. THE UPPER REFERENCE LIMIT (URL) OF TROPONIN, DEFINED THE 99TH PERCENTILE OFcTnI DISTRIBUTION IN A REFERENCE POPULATION, HAS BEEN CONFIRMED THE DECISION THRESHOLDFOR SC DIAGNOSIS. Performed By: #### C MREP ####[facility] W[address]ctdvupy[address] [place] [address]Dr. Antonella Medrano CARDIAC VICK ADMITon 022 CK [Catalytic activity/Vol] 47 U/L Normal 26-192 [facility] Comment on above: Performed By: #### ALICIA PANIAGUA ####[facility] Rhnqpixylx[address] [place] [address]Dr. Antonella eMdrano CK.MB [Mass/Vol] 1.38 ng/mL Normal <=3.60 [facility] Comment on above: Performed By: #### ALICIA PANIAGUA ####[facility] Doxtpyvkjj69[address] [place] [address]Dr. Antonella Medrano HSTROP 57.9 pg/mL Critically high 4.0-51.3 [facility] Comment on above: Result Comment: CUT- OFF POINTS HAVE BEEN ESTABLISHED BASED ON THE FOURTH UNIVERSAL DEFINITIONS OF MYOCARDIALINFARCTION. THE UPPER REFERENCE LIMIT (URL) OF TROPONIN, DEFINED THE 99TH PERCENTILE OFcTnI DISTRIBUTION IN A REFERENCE POPULATION, HAS BEEN CONFIRMED THE DECISION THRESHOLDFOR SC DIAGNOSIS. Performed By: #### ALICIA PANIAGUA ####[facility] [address]opjpbnd[address] [place] [address]Dr. Antonella Medrano CHRISTOPHER 100 ng/mL Critically high 9-82 [facility] Comment on above: Performed By: #### ALICIA PANIAGUA ####[facility] Cxafgzveul39[address] [place] [address]Dr. Antonella Mitchell CBC AUTO DIFFon 05-13-2022 BASO # 0.0 103/ul Normal 0.0-0.1 [facility] Comment on above: Performed By: #### C BC ####[facility] Dujsluxamf[address] [place] [address]Dr. Antonella Mitchell Basophils/100 WBC (Bld) 0.3 % Normal 0.2-2.0 [facility] Comment on above: Performed By: #### C BC ####[facility] Huyqvjakky4[address] [place] [address]Dr. Mariafilemon Medrano EO # 0.1 103/ul Normal 0.0-0.7 [facility] Comment on above: Performed By: #### C BC ####[facility] Ifgvzkqjdt9[address] [place] [address]Dr. Antonella Medrano Eosinophils/100 WBC (Bld) 1.6 % Normal 0.9-7.0 [facility] Comment on above: Performed By: #### C BC ####[facility] Anxdrzfuem8626[address] [place], [place] [address]Dr. Antonella Medrano Erythrocyte distribution width (RBC) [Ratio] 13.7 % Normal 11.0-15.0 [facility] Comment on above: Performed By: #### C BC ####[facility] Rvpasdsdbu79[address] [place], [place] [address]Dr. Antonella Medrano Hematocrit (Bld) [Volume fraction] 43.1 % Normal 36.0-48.0 [facility] Comment on above: Performed By: #### C BC ####[facility] Pkrkivbqzc[address] [place], [place] [address]Dr. Antonella Medrano Hemoglobin (Bld) [Mass/Vol] 14.1 g/dL Normal 12.0-16.0 [facility] Comment on above: Performed By: #### C BC ####[facility] Vaqwrrzidb[address] [place], [place] [address]Dr. Antonella Medrano IG # 0.10 10e3/ul Critically high 0.00-0.03 [facility] Comment on above: Performed By: #### C BC ####[facility] Vyurdbwazg[address] [place], [place] [address]Dr. Antonella Medrano IG % 1.2 % Critically high 0.0-0.5 [facility] Comment on above: Performed By: #### C BC ####[facility] Wbdqpowilu513[address] [place], [place] [address]Dr. Antonella Medrano LYMPH # 2.3 103/ul Normal 1.2-3.8 [facility] Comment on above: Performed By: #### C BC ####[facility] Hpdaqhxquh[address] [place], [place] [address]Dr. Antonella Medrano Lymphocytes/100 WBC (Bld) 26.2 % Normal 20.5-60.0 [facility] Comment on above: Performed By: #### C BC ####[facility] Ofkm[address]kqs[address] [place] [id number]. Antonella Medrano MANUAL DIFF REQ NO Normal [facility] Comment on above: Performed By: #### C BC ####[facility] Ddfhkszomk4[address] [place] [address]Dr. Antonella Medrano MCH (RBC) [Entitic mass] 28.8 pg Normal 26.7-34.0 [facility] Comment on above: Performed By: #### C BC ####[facility] Sqpoubgptg49[address] [place] [address]Dr. Antonella Medrano MCHC (RBC) [Mass/Vol] 32.7 g/dL Normal 29.9-35.2 [facility] Comment on above: Performed By: #### C BC ####[facility] Qprasaegpm0749 [place] [address]Dr. Antonella Mitchell MCV (RBC) [Entitic vol] 88.0 fL Normal 81.0-99.0 [facility] Comment on above: Performed By: #### C BC ####[facility] Kqjpzxitwk[address] [place], [place] [address]Dr. Antonella Mitchell MONO # 0.8 103/ul Normal 0.3-0.8 [facility] Comment on above: Performed By: #### C BC ####[facility] Oenzziyhwn[address] [place], [place] [address]Dr. Mariafilemon Medrano Monocytes/100 WBC (Bld) 9.3 % Normal 1.7-12.0 [facility] Comment on above: Performed By: #### C BC ####[facility] Qgagdlbikk511[address] [place], [place] [address]Dr. Antonella Medrano NEUT # 5.3 103/ul Normal 1.4-6.5 [facility] Comment on above: Performed By: #### C BC ####[facility] Urxxhzehgh954[address] [place], [place] [address]Dr. Mariafilemon Medrano Neutrophils/100 WBC (Bld) 61.4 % Normal 43.0-75.0 [facility] Comment on above: Performed By: #### C BC ####[facility] Mnkxutgibc99[address] [place] [address]Dr. Antonella Medrano Platelet mean volume (Bld) [Entitic vol] 10.6 fL Normal 9.5-13.5 [facility] Comment on above: Performed By: #### C BC ####[facility] Gaylzconyu[address] [place] [address]Dr. Antonella Medrano PLT 291 103/ul Normal 150-450 [facility] Comment on above: Performed By: #### C BC ####[facility] Hpshuudspu85[address] [place], [place] [address]Dr. Antonella Medrano RBC 4.90 106/ul Normal 4.20-5.40 [facility] Comment on above: Performed By: #### C BC ####[facility] Xhuuwzbnjt15[address] [place], [place] [address]Dr. Antonella Medrano WBC 8.7 103/ul Normal 4.0-11.0 [facility] Comment on above: Performed By: #### C BC ####[facility] Bgbiqxputp[address] [place], [place] [address]Dr. Antonella Medrano BASO # 0.1 103/ul Normal 0.0-0.1 [facility] Comment on above: Performed By: #### C BC ####[facility] Lqbdhwpjfn96[address] [place], [place] [address]Dr. Antonella Medrano Basophils/100 WBC (Bld) 0.5 % Normal 0.2-2.0 [facility] Comment on above: Performed By: #### C BC ####[facility] Miiilxkbov5423[address] [place], [place] [address]Dr. Antonella Medrano EO # 0.1 103/ul Normal 0.0-0.7 [facility] Comment on above: Performed By: #### C BC ####[facility] Mvkjgddsrq148[address] [place], [place] [address]Dr. Antonella Medrano Eosinophils/100 WBC (Bld) 1.3 % Normal 0.9-7.0 [facility] Comment on above: Performed By: #### C BC ####[facility] Nxnvdvhqdl619[address] [place], [place] [address]Dr. Antonella Mitchell Erythrocyte distribution width (RBC) [Ratio] 13.7 % Normal 11.0-15.0 [facility] Comment on above: Performed By: #### C BC ####[facility] Ktflsutcnr[address] [place] [address]Dr. Antonella Medrano Hematocrit (Bld) [Volume fraction] 45.2 % Normal 36.0-48.0 [facility] Comment on above: Performed By: #### C BC ####[facility] Lcksktvelg0136[address] [place], [place] [address]Dr. Antonella Medrano Hemoglobin (Bld) [Mass/Vol] 14.9 g/dL Normal 12.0-16.0 [facility] Comment on above: Performed By: #### C BC ####[facility] Pdzxwcovlw638[address] [place], [place] [address]Dr. Antonella Medrano IG # 0.14 10e3/ul Critically high 0.00-0.[address] [facility] Comment on above: Performed By: #### C BC ####[facility] Wawylvdxhf9[address] [place], [place] [address]Dr. Antonella Medrano IG % 1.4 % Critically high 0.0-0.5 [facility] Comment on above: Performed By: #### C BC ####[facility] Rzpxuwwlmx183[address] [place], [place] [address]Dr. Mariafilemon Medrano LYMPH # 1.7 103/ul Normal 1.2-3.8 [facility] Comment on above: Performed By: #### C BC ####[facility] Fnozzvpjsc404[address] [place], [place] [address]Dr. Mariafilemon Medrano Lymphocytes/100 WBC (Bld) 16.1 % Critically low 20.5-60.0 [facility] Comment on above: Performed By: #### C BC ####[facility] Uegqujavxh48[address] [place], [place] [address]Dr. Mariafilemon Medrano MANUAL DIFF REQ NO Normal [facility] Comment on above: Performed By: #### C BC ####[facility] Bfgaicolsx00[address] [place], [place] [address]Dr. Antonella Medrano MCH (RBC) [Entitic mass] 29.0 pg Normal 26.7-34.0 [facility] Comment on above: Performed By: #### C BC ####[facility] Smphtqqwla911[address] [place], [place] [address]Dr. Antonella Medrano MCHC (RBC) [Mass/Vol] 33.0 g/dL Normal 29.9-35.2 [facility] Comment on above: Performed By: #### C BC ####[facility] Eixcaddzpo677[address] [place], [place] [address]Dr. Antonella Mitchell MCV (RBC) [Entitic vol] 87.9 fL Normal 81.0-99.0 [facility] Comment on above: Performed By: #### C BC ####[facility] Gttrquhpqv[address] [place], [place] [address]Dr. Antonella Medrano MONO # 1.0 103/ul Critically high 0.3-0.8 [facility] Comment on above: Performed By: #### C BC ####[facility] Mzmqdsmzbb79[address] [place], [place] [address]Dr. Antonella Medrano Monocytes/100 WBC (Bld) 9.2 % Normal 1.7-12.0 [facility] Comment on above: Performed By: #### C BC ####[facility] Idigofakdy366[address] [place], [place] [address]Dr. Antonella Medrano NEUT # 7.4 103/ul Critically high 1.4-6.5 [facility] Comment on above: Performed By: #### C BC ####[facility] Ctxhwvsvcq657[address] [place], [place] [address]Dr. Antonella Medrano Neutrophils/100 WBC (Bld) 71.5 % Normal 43.0-75.0 [facility] Comment on above: Performed By: #### C BC ####[facility] Ppsjwetazy[address] [place], [place] [address]Dr. Antonella Medrano Platelet mean volume (Bld) [Entitic vol] 10.4 fL Normal 9.5-13.5 [facility] Comment on above: Performed By: #### C BC ####[facility] Apkljqgvxg3914 [place], [place] [address]Lo. Antonella Medrano PLT 289 103/ul Normal 150-450 [facility] Comment on above: Performed By: #### C BC ####[facility] [address]wlxagvpi[address] [place] [phone]. Antonella Medrano RBC 5.14 106/ul Normal 4.20-5.40 [facility] Comment on above: Performed By: #### C BC ####[facility] Duhjxronjs7065 [place] [phone]. Antonella Medrano WBC 10.3 103/ul Normal 4.0-11.0 [facility] Comment on above: Performed By: #### C BC ####[facility] Tsoopegbin[address] [place] [phone]. Antonella Medrano CT HEAD WO CONon 05-13-2022 CT HEAD WO CON Normal [facility] CULTURE URINEon 05-13-2022 CULTURE URINE Culture Observations : HEAVY GROWTH OF MIXED GENITAL LUCY. NO POTENTIAL PATHOGENS SEEN. Normal [facility] Comment on above: Performed By: #### U RCX ####[facility] [address]zbrqgglzl[address] [place] [phone]. Antonella Medrano [facility] SARS-CoV-2 (COVID-19) RNA TAISHA+probe Ql (Unsp spec) Not detected Normal NOT DETECTED [facility] Comment on above: Result Comment: When diagnostic [...] for this test is supported by the Beaming Inspector of Health and Human Service's declaration that [...] be used). Performed By: #### C VDTB ####[facility] Coovvdpdky[address] [place] [address]Dr. Antonella Medrano ER URINE PROFILEon 2 Bilirubin Ql (U) Negative Normal NEGATIVE [facility] Comment on above: Performed By: #### U MICRO, ERUR ####[facility] Hrwnpvziym[address] [place] [address]Dr. Antonella Medrano Clarity (U) CLEAR Normal CLEAR [facility] Comment on above: Performed By: #### U MICRO, ERUR ####[facility] Myylgobssu[address] [place], [place] [address]Dr. Antonella Medrano Color (U) YELLOW Normal YELLOW [facility] Comment on above: Performed By: #### U MICRO, ERUR ####[facility] Szbmwjatlw326[address] [place], [place] [address]Dr. Anotnella Medrano ERUAHD A micrscopic examina tion will be performed if indicated. Normal [facility] Comment on above: Performed By: #### U MICRO, ERUR ####[facility] Bglnfzezsh88[address] [place], [place] [address]Dr. Antonella Medrano Glucose Ql (U) >1000 Abnormal NEGATIVE [facility] Comment on above: Performed By: #### U MICRO, ERUR ####[facility] Fnfizwjeva[address] [place] [address]Dr. Antonella Medrano Hemoglobin Ql (U) SMALL Abnormal NEGATIVE [facility] Comment on above: Performed By: #### U MICRO, ERUR ####[facility] Athxxqpjsu34[address] [place] [address]Dr. Antonella Medrano Ketones Ql (U) Negative Normal NEGATIVE [facility] Comment on above: Performed By: #### U MICRO, ERUR ####[facility] Ityaanzjyk230[address] [place] [address]Dr. Antonella Medrano LEUKOCYTES SMALL Abnormal NEGATIVE [facility] Comment on above: Performed By: #### U MICRO, ERUR ####[facility] Inuepjuykj[address] [place] [address]Dr. Antonella Medrano Nitrite Ql (U) Negative Normal NEGATIVE [facility] Comment on above: Performed By: #### U MICRO, ERUR ####[facility] Lsrxjsdtop20[address] [place], [place] [address]Dr. Antonella Medrano pH (U) 5.5 [pH] Normal 5-9 [facility] Comment on above: Performed By: #### U MICRO, ERUR ####[facility] Ciiwryqtlw[address] [place], [place] [address]Dr. Antonella Medrano Protein (U) [Mass/Vol] 100 mg/dL Abnormal NEGAT LAZ/ TRACE [facility] Comment on above: Performed By: #### U MICRO, ERUR ####[facility] Xvlhwjyozh9[address] [place], [place] [address]Dr. Antonella Medrano SPEC GRAVITY >=1.030 Abnormal 1.005-<=1.0 25 [facility] Comment on above: Performed By: #### U MICRO, ERUR ####[facility] Ihzsijwund[address] [place], [place] [address]Dr. Antonella Medrano UR MICRO IND INDICATED Normal [facility] Comment on above: Performed By: #### U MICRO, ERUR ####[facility] Yyywintwzl[address] [place], [place] [address]Dr. Antonella Medrano Urobilinogen Qn (U) 0.2 {Oleg'U}/dL Normal 0.2 - 1. 0 [facility] Comment on above: Performed By: #### U MICRO, ERUR ####[facility] Iruynrbosi[address] [place], [place] [address]Dr. Antonella Medrano ETHANOL (BLD ALC)on 05-13-20 ALC NOTE NOTE: 80 mg/dl is th e legal limit for a blood alcohol level Normal [facility] Comment on above: Performed By: #### E TH ####[facility] Wvngjemqnx[address] [place], [place] [address]Dr. Antonella Medrano Ethanol [Mass/Vol] mg/dL Normal [facility] Comment on above: Performed By: #### E TH ####[facility] Upkgjmcmyw[address] [place] [address]Dr. Antonella Medrano LACTATE/LACTIC ACIDon 2021 Lactate [Moles/Vol] 1.3 mmol/L Normal 0.4-1.[address] [facility] Comment on above: Performed By: #### L ACT ####[facility] J[address]rou[address] [place] [address]Dr. Mariafilemon Mitchell POINT OF CARE GLUCOSEon 04-24 Glucose [Mass/Vol] 164 mg/dL Critically high 74-106 [facility] Comment on above: Performed By: #### P OCGLUC ####[facility] [facility] [address]sm[address] [place], [place] [address]Dr. Antonella Medrano Glucose [Mass/Vol] 172 mg/dL Critically high -[address] [place] [address] Comment on above: Performed By: #### P OCGLUC ####[facility] Ixuuwovbot[address] [place], [place] [address]Dr. Antonella Medrano Performed By: #### B MP ####[facility] Mvqaggkgmv[address] [place], [place] [address]Dr. Mariafilemon Mitchell Glucose [Mass/Vol] 253 mg/dL Critically high -106 [facility] Comment on above: Performed By: #### P OCGLUC ####[facility] Xhyktezlab[address] [place], [place] [address]Dr. Antonella Mitchell Glucose [Mass/Vol] 146 mg/dL Critically high [address] [place] [address] Comment on above: Performed By: #### P OCGLUC ####[facility] Hngmpyxvlr[address] [place], [place] [address]Dr. Antonella Medrano PROF CHEM 8 (BAS METB)on Anion gap [Moles/Vol] 11.4 mmol/L Normal [facility] Comment on above: Performed By: #### B MP ####[facility] Drfqyyvupe[address] [place], [place] [address]Dr. Antonella Medrano Calcium [Mass/Vol] 8.4 mg/dL Critically low 8.5-10.1 [facility] Comment on above: Performed By: #### B MP ####[facility] [address] [place] [address]Dr. Antonella Medrano Chloride [Moles/Vol] 101 mmol/L Normal 98-107 [facility] Comment on above: Performed By: #### B MP ####[facility] Tzpnwticbc[address] [place] [address]Dr. Antonella Medrano CO2 [Moles/Vol] 26.5 mmol/L Normal 21.0-32.[address] [facility] Comment on above: Performed By: #### B MP ####[facility] Obrgihmaph[address] [place], [place] [address]Dr. Mariafilemon Mitchell Creatinine [Mass/Vol] 1.06 mg/dL Critically high 0.55-1.[address] [facility] Comment on above: Performed By: #### B MP ####[facility] [address]zcfx[address] [place], [place] [address]Dr. Mariafilemon Mitchell EGFR-AF MALDIVIAN >60 Normal >=[address] [facility] Comment on above: Performed By: #### B MP ####[facility] Qjjxqazxoy[address] [place], [place] [address]Dr. Mariafilemon Mitchell EGFR-NON AF MALDIVIAN 52 mL/min/1.73m2 Critically low >=[address] [facility] Comment on above: Performed By: #### B MP ####[facility] Dexjmrpfjh912[address] [place], [place] [address]Dr. Antonella Medrano Potassium [Moles/Vol] 3.9 mmol/L Normal 3.5-5.1 [facility] Comment on above: Performed By: #### B MP ####[facility] Lxaflfdbxy[address] [place], [place] [address]Dr. Antonella Medrano Sodium [Moles/Vol] 135 mmol/L Critically low 136-145 [facility] Comment on above: Performed By: #### B MP ####[facility] Ownutiacqv137[address] [place], [place] [address]Dr. Antonella Medrano Urea nitrogen [Mass/Vol] 28.0 mg/dL Critically high 7.0-18.0 [facility] Comment on above: Performed By: #### B MP ####[facility] [address] [place] [id number]. Antonella Medrano Urea nitrogen/Creatinine [Mass ratio] 26.4 mg/mg Normal [facility] Comment on above: Performed By: #### B MP ####[facility] [address]dewvmz[address] [place] [id number]. Antonella Medrano Anion gap [Moles/Vol] 12.0 mmol/L Normal [facility] Comment on above: Performed By: #### C FERNANDEZ, BMP ####[facility] [address]qfcnl[address] [place] [address]Dr. Antonella Medrano Calcium [Mass/Vol] 8.8 mg/dL Normal 8.5-10.[address] [facility] Comment on above: Performed By: #### C FERNANDEZ, BMP ####[facility] Nraqvtleha[address] [place], [place] [address]Dr. Antonella Medrano Chloride [Moles/Vol] 101 mmol/L Normal 98-107 [facility] Comment on above: Performed By: #### C FERNANDEZ, BMP ####[facility] Ihisaafkjw[address] [place], [place] [address]Dr. Antonella Medrano CO2 [Moles/Vol] 28.2 mmol/L Normal 21.0-32.[address] [facility] Comment on above: Performed By: #### C FERNANDEZ, BMP ####[facility] [address] [place], [place] [address]Dr. Antonella Medrano Creatinine [Mass/Vol] 1.23 mg/dL Critically high 0.55-1.02 [facility] Comment on above: Performed By: #### C FERNANDEZ, BMP ####[facility] Sgrzoqwpgo[address] [place], [place] [address]Dr. Antonella Medrano EGFR-AF MALDIVIAN 53 mL/min/1.73m2 Critically low >=60 [facility] Comment on above: Performed By: #### C FERNANDEZ, BMP ####[facility] [address]mb[address]ok[address]ps[address] [place], [place] [address]Dr. Antonella Medrano EGFR-NON AF MALDIVIAN 44 mL/min/1.73m2 Critically low >=60 [facility] Comment on above: Performed By: #### C FERNANDEZ, BMP ####[facility] [address]hnbdro[address] [place] [address]Dr. Mariafilemon Mitchell Glucose [Mass/Vol] 173 mg/dL Critically high 74-106 [facility] Comment on above: Performed By: #### C FERNANDEZ, BMP ####[facility] C[address]ugmnbs[address] [place] [address]Dr. Antonella Medrano Potassium [Moles/Vol] 4.2 mmol/L Normal 3.5-5.[address] [facility] Comment on above: Performed By: #### C FERNANDEZ, BMP ####[facility] [address]wuomk[address] [place] [address]Dr. Antonella Medrano Sodium [Moles/Vol] 137 mmol/L Normal 136-[address] [facility] Comment on above: Performed By: #### C FERNANDEZ, BMP ####[facility] Amygahfexq[address] [place], [place] [address]Dr. Antonella Medrano Urea nitrogen [Mass/Vol] 29.0 mg/dL Critically high 7.0-18.[address] [facility] Comment on above: Performed By: #### C FERNANDEZ, BMP ####[facility] Vun[address] [place], [place] [address]Dr. Antonella Medrano Urea nitrogen/Creatinine [Mass ratio] 23.6 mg/mg Normal [facility] Comment on above: Performed By: #### C FERNANDEZ, BMP ####[facility] Qhhyjhcovl[address] [place], [place] [address]Dr. Antonella Medrano URINE MICROSCOPIC ONLYon BACTERIA LARGE Abnormal NONE SEEN [facility] Comment on above: Performed By: #### U MICRO, ERUR ####[facility] Xcqhctvark[address] [place], [place] [address]Dr. Antonella Medrano Bacteria identified Cx Nom (U) INDICATED Normal [facility] Comment on above: Performed By: #### U MICRO, ERUR ####[facility] Inumoyrxfn[address] [place], [place] [address]Dr. Antonella Medrano CAST NONE SEEN Normal NONE SEEN [facility] Comment on above: Performed By: #### U MICRO, ERUR ####[facility] [address]ph[address] [place] [address]Dr. Antonella Mitchell Crystals LM Nom (Urine sed) NONE SEEN Normal NONE SEEN [facility] Comment on above: Performed By: #### U MICRO, ERUR ####[facility] [address] [place] [address]Dr. Mariafilemon Medrano Epithelial cells LM Ql (Urine sed) RARE Normal NONE SEEN /RARE [facility] Comment on above: Performed By: #### U MICRO, ERUR ####[facility] [address]fm[address] [place] [address]Dr. Mariafilemon Medrano MUCOUS NONE SEEN Normal NONE SEEN [facility] Comment on above: Performed By: #### U MICRO, ERUR ####[facility] [address] [place] [address]Dr. Antonella Medrano RBC 0-2 Normal 0-2 [facility] Comment on above: Performed By: #### U MICRO, ERUR ####[facility] [address]qo[address] [place] [address]Dr. Antonella Medrano WBC 10-20 Abnormal NONE SEEN [facility] Comment on above: Performed By: #### U MICRO, ERUR ####[facility] [address]mr[address] [place] [address]Dr. Antonella Medrano YEAST PRESENT Abnormal NONE SEEN [facility] Comment on above: Performed By: #### U MICRO, ERUR ####[facility] [address] [place] [address]Dr. Mariafilemon Medrano XR CHEST 1 Von 05-13-2022 XR CHEST 1 V Normal [facility] POC GLUCOSE LABon 03-25-2022 Glucose [Mass/Vol] 180 mg/dL High 70-100 [facility] Comment on above: Performed By: #### 1 0070, [id number] #### [facility] [address] [facility] [place] [address], [facility] Glucose [Mass/Vol] 189 mg/dL High 70-100 [facility] Comment on above: Performed By: #### 1 0070, 97547 #### [facility] [address] [place] [address], [place] POC GLUCOSE LABon 03-24-2022 Glucose [Mass/Vol] 198 mg/dL High 70-100 [facility] Comment on above: Performed By: #### 3 5200 #### [facility] [address] [place] [address], [place] Glucose [Mass/Vol] 175 mg/dL High 70-100 [facility] Comment on above: Performed By: #### 8 5499 #### [facility] [address] [place] [address], [place] Glucose [Mass/Vol] 148 mg/dL High 70-100 [facility] Comment on above: Performed By: #### 8 5499 #### [facility] [address] [place] [address], [place] Glucose [Mass/Vol] 85 mg/dL Normal 70-100 [facility] Comment on above: Performed By: #### 3 5200 #### [facility] [address] [place] [address], [place] POC GLUCOSE LABon 03-23-2022 Glucose [Mass/Vol] 173 mg/dL High 70-100 [facility] Comment on above: Performed By: #### 8 5499 #### [facility] [address] [place] [address], [place] Glucose [Mass/Vol] 190 mg/dL High 70-100 [facility] Comment on above: Performed By: #### 8 5499 #### [facility] [address] [place] [address], [place] Glucose [Mass/Vol] 141 mg/dL High 70-100 [facility] Comment on above: Performed By: #### 8 5499 #### [facility] [address] [place] [address], [place] Glucose [Mass/Vol] 188 mg/dL High 70-100 [facility] Comment on above: Performed By: #### 8 5499 #### [facility] [address] [place] [address], [place] POC GLUCOSE LABon 03-22-2022 Glucose [Mass/Vol] 225 mg/dL High 70-100 [facility] Comment on above: Performed By: #### 1 0070, 25884 #### [facility] [address] [place] [address], [place] Glucose [Mass/Vol] 241 mg/dL High 70-100 [facility] Comment on above: Performed By: #### 8 5499 #### [facility] [address] [place] [address], [place] Glucose [Mass/Vol] 182 mg/dL High 70-100 [facility] Comment on above: Performed By: #### 8 5499 #### [facility] [address] [place] [address], [place] Glucose [Mass/Vol] 212 mg/dL High 70-100 [facility] Comment on above: Performed By: #### 1 0070, 27768 #### [facility] [address] [place] [address], [facility] MRI HIP WO CONTRAST RIGHTon 03-21-2022 MRI HIP WO CONTRAST RIGHT [facility] Department of Radiology [address] [place] [id number] Patient Name: KIARA BLANC : 1955 Sex: F Age: Race: White Pt. Location: [id number] Patient Status: I Ordered Date: 2022 2:20:00 [...] fracture. Electronically signed: Kj Pedersen. Transcribed by: [email or web address], User Resident: Electronically Signed by: KJ PEDERSEN @ 03/21/2022 12:05 PM Normal [facility] Comment on above: Order Comment: No: D o not add to previous draw POC GLUCOSE LABon 03-21-2022 Glucose [Mass/Vol] 270 mg/dL High 70-100 [facility] Comment on above: Performed By: #### 1 0070, 09856 #### [facility] [address] [place] [address], [place] Glucose [Mass/Vol] 256 mg/dL High 70-100 [facility] Comment on above: Performed By: #### 8 5499 #### [facility] [address] [place] [address], [place] Glucose [Mass/Vol] 250 mg/dL High 70-100 [facility] Comment on above: Performed By: #### 8 5499 #### [facility] [address] [place] [address], [place] Glucose [Mass/Vol] 223 mg/dL High 70-100 [facility] Comment on above: Performed By: #### 3 5200 #### [facility] [address] [place] [address], [facility] CT LOWER EXTREMITY WO CONTRA ST RIGHTon 2022 CT LOWER EXTREMITY WO CONTRAST RIGHT [facility] Department of Radiology [address] [place] [address] Patient Name: KIARA BLANC : 1955 Sex: F Age: Race: White Pt. Location: [id number] Patient Status: I Ordered Date: 2022 12:00:00 [...] fracture. Electronically signed: Rodo Melissa. Transcribed by: [email or web address], User Resident: Electronically Signed by: RODO MELISSA @ 2022 01:26 PM Normal [facility] Comment on above: Order Comment: No: D o not add to previous draw HIPS BILATERAL 2 VWS WITH PE LVISon 2022 HIPS BILATERAL 2 VWS WITH PELVIS [facility] Department of Radiology [address] [place] [id number] Patient Name: KIARA BLANC : 1955 Sex: F Age: Race: White Pt. Location: [address] [place] [address] Patient Status: I Ordered Date: 2022 9:05:00 [...] indicated. Electronically signed: Rodo Melissa. Transcribed by: [email or web address], User Resident: Electronically Signed by: RODO MELISSA @ 2022 02:13 PM Normal [facility] Comment on above: Order Comment: R/O F X, R pelvic crest, greater trochanter LUMBAR SPINE 2 OR 3 VWSon LUMBAR SPINE 2 OR 3 S [facility] Department of Radiology [address] [place] [id number] Patient Name: KIARA BLANC : 1955 Sex: F Age: Race: White Pt. Location: [id number] Patient Status: I Ordered Date: 2022 9:10:00 [...] described. Electronically signed: Rodo Melissa. Transcribed by: [email or web address], User Resident: Electronically Signed by: RODO MELISSA @ 2022 10:11 AM Normal [facility] Comment on above: Order Comment: No: D o not add to previous draw POC GLUCOSE LABon 2022 Glucose [Mass/Vol] 263 mg/dL High 70-100 [facility] Comment on above: Performed By: #### 3 5200 #### [facility] [address] [place] [address], [place] Glucose [Mass/Vol] 245 mg/dL High 70-100 [facility] Comment on above: Performed By: #### 3 5200 #### [facility] [address] [place] [address], [place] Glucose [Mass/Vol] 212 mg/dL High 70-100 [facility] Comment on above: Performed By: #### 3 5200 #### [facility] [address] [place] [address], [place] Glucose [Mass/Vol] 153 mg/dL High 70-100 [facility] Comment on above: Performed By: #### 8 5499 #### [facility] [address] [place] [address], [place] TSH3on 2022 TSH 3RD GENERATION 1.23 uIU/mL Normal 0.34-5.60 [facility] Comment on above: Order Comment: No: D o not add to previous draw Performed By: #### 1 0070, 64848 #### [facility] [address] [place] [address], [place] VITAMIN B12on 2022 Cobalamin (Vitamin B12) [Mass/Vol] 436 pg/mL Normal 180-914 [facility] Comment on above: Order Comment: No: D o not add to previous draw Result Comment: REFE RENCE RANGES: 180-914 pg/mL Normal 145-179 pg/mL Indeterminate <145 pg/mL Deficient Performed By: #### 1 0, 65949 #### [facility] [address] [place] [address], [place] VITAMIN D 25-HYDROXYon 03-20 VITAMIN D 25-OH 20.1 ng/mL Low 30.0-80.0 [facility] Comment on above: Result Comment: >80. 0 Toxicity possible Performed By: #### 1 69, 98056 #### [facility] [address] [place] [address], [place] POC GLUCOSE LABon 03-19-2022 Glucose [Mass/Vol] 140 mg/dL High 70-100 [facility] Comment on above: Performed By: #### 8 5499 #### [facility] [address] [place] [address], [place] Glucose [Mass/Vol] 111 mg/dL High 70-100 [facility] Comment on above: Performed By: #### 1 69, 71074 #### [facility] [address] [place] [address], [place] Glucose [Mass/Vol] 143 mg/dL High 70-100 [facility] Comment on above: Performed By: #### 8 5499 #### [facility] [address] [place] [address], [place] Glucose [Mass/Vol] 232 mg/dL High 70-100 [facility] Comment on above: Performed By: #### 3 5200 #### [facility] [address] [place] [address], [place] *URINE CULTUREon 03-18-2022 *URINE CULTURE Clinical Report: (D) Specimen/Source: URINE/CLEAN VOID URINE Collected: 03/18/2022 12:00 Status: Final Last Updated: 2022 10:33 ISO (Final) >100,000 Cfu/Ml Uro-Genital Lucy ISO (Final) Presumptive Grover glabrata >100,000 Cfu/Ml Normal [facility] Comment on above: Performed By: #### 8 5499 #### [facility] [address] [place] [address], [place] MAGNESIUM BLOODon 03-18-2022 Magnesium [Mass/Vol] 1.9 mg/dL Normal 1.9-2.7 [facility] Comment on above: Order Comment: No: D o not add to previous draw Performed By: #### 1 0070, 19973 #### [facility] [address] [place] [address], [place] POC GLUCOSE LABon 03-18-2022 Glucose [Mass/Vol] 256 mg/dL High 70-100 [facility] Comment on above: Performed By: #### 8 5499 #### [facility] [address] [place] [address], [place] Glucose [Mass/Vol] 262 mg/dL High 70-100 [facility] Comment on above: Performed By: #### 3 5200 #### [facility] [address] [place] [address], [place] Glucose [Mass/Vol] 215 mg/dL High 70-100 [facility] Comment on above: Performed By: #### 3 5200 #### [facility] [address] [place] [address], [place] Glucose [Mass/Vol] 361 mg/dL High 70-100 [facility] Comment on above: Performed By: #### 8 5499 #### [facility] [address] [place] [address], [place] URINALYSIS REFLEXon 03-18-20 22 Appearance (U) TURBID Abnormal CLEAR [facility] Comment on above: Order Comment: Yes: Add to Previous draw if able Criteria for reflexing a culture was not met. Please call the lab at [phone] within 24 hours of collection time if culture is needed Performed By: #### 3 0965 #### [facility] [address] [facility] [place] [address], [facility] Bilirubin Ql (U) Negative Normal NEGATIVE [facility] Comment on above: Order Comment: Yes: Add to Previous draw if able Criteria for reflexing a culture was not met. Please call the lab at [phone] within 24 hours of collection time if culture is needed Performed By: #### 3 0965 #### [facility] [address] BUDDING YEAST MANY Abnormal NONE SEEN [facility] Comment on above: Order Comment: Yes: Add to Previous draw if able Criteria for reflexing a culture was not met. Please call the lab at [phone] within 24 hours of collection time if culture is needed Performed By: #### 3 0965 #### [facility] [address] [facility]. [address] Color (U) YELLOW Normal YELLOW [facility] Comment on above: Order Comment: Yes: Add to Previous draw if able Criteria for reflexing a culture was not met. Please call the lab at [phone] within 24 hours of collection time if culture is needed Performed By: #### 3 0965 #### [facility] [address] [facility] [place] [address], [facility] EPIS MANY Abnormal FEW,OCC,NON E SEEN [facility] Comment on above: Order Comment: Yes: Add to Previous draw if able Criteria for reflexing a culture was not met. Please call the lab at [phone] within 24 hours of collection time if culture is needed Performed By: #### 3 0965 #### [facility] [address] [facility] [place] [address], [facility] Glucose Ql (U) >=500 Abnormal NEGATIVE [facility] Comment on above: Order Comment: Yes: Add to Previous draw if able Criteria for reflexing a culture was not met. Please call the lab at [phone] within 24 hours of collection time if culture is needed Performed By: #### 3 0965 #### [facility] [address] [place] [address], [facility] Hemoglobin Ql (U) SMALL Abnormal NEGATIVE [facility] Comment on above: Order Comment: Yes: Add to Previous draw if able Criteria for reflexing a culture was not met. Please call the lab at [phone] within 24 hours of collection time if culture is needed Performed By: #### 3 0965 #### [facility] [address] [place] [address], [facility] KETONE Negative Normal NEGATIVE [facility] Comment on above: Order Comment: Yes: Add to Previous draw if able Criteria for reflexing a culture was not met. Please call the lab at [phone] within 24 hours of collection time if culture is needed Performed By: #### 3 0965 #### [facility] [address] [facility] [address], [facility] LEUK TESHA LARGE Abnormal NEGATIVE [facility] Comment on above: Order Comment: Yes: Add to Previous draw if able Criteria for reflexing a culture was not met. Please call the lab at [phone] within 24 hours of collection time if culture is needed Performed By: #### 3 0965 #### [facility] [address] [facility] [place] [address], [facility] Nitrite Ql (U) Negative Normal NEGATIVE [facility] Comment on above: Order Comment: Yes: Add to Previous draw if able Criteria for reflexing a culture was not met. Please call the lab at [phone] within 24 hours of collection time if culture is needed Performed By: #### 3 0965 #### [facility] [address] [facility] [place] [address], [facility] pH (U) 6.0 [pH] Normal 5.0-8.0 [facility] Comment on above: Order Comment: Yes: Add to Previous draw if able Criteria for reflexing a culture was not met. Please call the lab at [phone] within 24 hours of collection time if culture is needed Performed By: #### 3 0965 #### [facility] [address] [facility]. [address] Protein Ql (U) 30 mg/dL Abnormal NEGATIVE [facility] Comment on above: Order Comment: Yes: Add to Previous draw if able Criteria for reflexing a culture was not met. Please call the lab at [phone] within 24 hours of collection time if culture is needed Performed By: #### 3 0965 #### [facility] [address] [facility] [place] [address], [facility] RBC 6-10 Abnormal NONE SEEN The [facility] Comment on above: Order Comment: Yes: Add to Previous draw if able Criteria for reflexing a culture was not met. Please call the lab at [phone] within 24 hours of collection time if culture is needed Performed By: #### 3 0965 #### [facility] [address] [facility]. [address] SPEC GRAV 1.009 Low 1.015-1.020 [facility] Comment on above: Order Comment: Yes: Add to Previous draw if able Criteria for reflexing a culture was not met. Please call the lab at [phone] within 24 hours of collection time if culture is needed Performed By: #### 3 0965 #### [facility] [address] [facility]. [address] WBC UA >100 Abnormal NONE SEEN [facility] Comment on above: Order Comment: Yes: Add to Previous draw if able Criteria for reflexing a culture was not met. Please call the lab at [phone] within 24 hours of collection time if culture is needed Performed By: #### 3 0965 #### [facility] [address] [facility]. [address] BASIC METABOLIC PANELon 06-2 Calcium [Mass/Vol] 8.3 mg/dL Low 8.6-10.3 [facility] Comment on above: Order Comment: No: D o not add to previous draw Performed By: #### 1 0070, 09613 #### [facility] [address] [facility] [place] [place] [address], [place] Chloride [Moles/Vol] 106 mmol/L Normal 98-107 [facility] Comment on above: Order Comment: No: D o not add to previous draw Performed By: #### 1 69, 27534 #### [facility] [address] [place] [address], [place] CO2 [Moles/Vol] 24 mmol/L Normal 21-31 [facility] Comment on above: Order Comment: No: D o not add to previous draw Performed By: #### 1 69, 02582 #### [facility] [address] [place] [address], [place] Creatinine [Mass/Vol] 0.73 mg/dL Normal 0.60-1.20 [facility] Comment on above: Order Comment: No: D o not add to previous draw Performed By: #### 1 69, 54479 #### [facility] [address] [place] [address], [place] GFR/1.73 sq M.predicted among blacks MDRD (S/P/Bld) [Vol rate/Area] mL/min/{1.73_m2} Normal >60 [facility] Comment on above: Order Comment: No: D o not add to previous draw Performed By: #### 1 69, 51097 #### [facility] [address] [place] [address], [place] GFR/1.73 sq M.predicted among non-blacks MDRD (S/P/Bld) [Vol rate/Area] mL/min/{1.73_m2} Normal >60 [facility] Comment on above: Order Comment: No: D o not add to previous draw Performed By: #### 1 69, 59757 #### [facility] [address] [place] [address], [place] Glucose [Mass/Vol] 218 mg/dL High 70-100 [facility] Comment on above: Order Comment: No: D o not add to previous draw Performed By: #### 1 69, 87047 #### [facility] [address] [place] [address], [facility] Potassium [Moles/Vol] 4.2 mmol/L Normal 3.5-5.1 [facility] Comment on above: Order Comment: No: D o not add to previous draw Performed By: #### 1 69, 95128 #### [facility] [address] [place] [address], [facility] Sodium [Moles/Vol] 136 mmol/L Normal 136-145 [facility] Comment on above: Order Comment: No: D o not add to previous draw Performed By: #### 1 69, 70627 #### [facility] [address] [place] [address], [facility] Urea nitrogen [Mass/Vol] 18 mg/dL Normal 7-25 [facility] Comment on above: Order Comment: No: D o not add to previous draw Performed By: #### 1 69, 87638 #### [facility] [address] [facility] [place] [address], [facility] CBC W/DIFFon 03-17-2022 ABS IMM GRANS 0.1 10*3/uL Normal 0.0-0.2 [facility] Comment on above: Order Comment: No: D o not add to previous draw Performed By: #### 8 5499 #### [facility] [address] [facility] [place] [address], [facility] ABS NEUTROPHILS 4.2 10*3/uL Normal 1.6-7.6 [facility] Comment on above: Order Comment: No: D o not add to previous draw Performed By: #### 8 5499 #### [facility] [address] [place] [address], [facility] Basophils (Bld) [#/Vol] 0.0 10*3/uL Normal 0.0-0.2 [facility] Comment on above: Order Comment: No: D o not add to previous draw Performed By: #### 8 5499 #### [facility] [address] [place] [address], [facility] Basophils/100 WBC (Bld) 0.4 % Normal 0.0-1.0 [facility] Comment on above: Order Comment: No: D o not add to previous draw Performed By: #### 8 5499 #### [facility] [address] [place] [address], [place] Eosinophils (Bld) [#/Vol] 0.2 10*3/uL Normal 0.0-0.5 [facility] Comment on above: Order Comment: No: D o not add to previous draw Performed By: #### 8 5499 #### [facility] [address] [place] [address], [facility] Eosinophils/100 WBC (Bld) 3.4 % Normal 0.0-6.0 [facility] Comment on above: Order Comment: No: D o not add to previous draw Performed By: #### 8 5499 #### [facility] [address] [place] [id number], [facility] Erythrocyte distribution width (RBC) [Ratio] 13.4 % Normal 11.5-15.0 [facility] Comment on above: Order Comment: No: D o not add to previous draw Performed By: #### 8 5499 #### [facility] [address] [place] [id number], [facility] Hematocrit (Bld) [Volume fraction] 42.7 % Normal 36.0-45.0 [facility] Comment on above: Order Comment: No: D o not add to previous draw Performed By: #### 8 5499 #### [facility] [address] [place] [address], [facility] Hemoglobin (Bld) [Mass/Vol] 13.8 g/dL Normal 12.0-15.0 [facility] Comment on above: Order Comment: No: D o not add to previous draw Performed By: #### 8 5499 #### [facility] [address] [place] [address], [facility] IMMATURE GRANS 0.8 % Normal 0.0-1.0 [facility] Comment on above: Order Comment: No: D o not add to previous draw Performed By: #### 8 5499 #### [facility] [address] [place] [id number], [facility] Lymphocytes (Bld) [#/Vol] 1.8 10*3/uL Normal 1.2-4.0 [facility] Comment on above: Order Comment: No: D o not add to previous draw Performed By: #### 8 5499 #### [facility] [address] [place] [id number], [facility] Lymphocytes/100 WBC (Bld) 25.8 % Normal 20.0-45.0 [facility] Comment on above: Order Comment: No: D o not add to previous draw Performed By: #### 8 5499 #### [facility] [address] [facility] [place] [address], [facility] MCH (RBC) [Entitic mass] 28.3 pg Normal 27.0-33.0 [facility] Comment on above: Order Comment: No: D o not add to previous draw Performed By: #### 8 5499 #### [facility] [address] [place] [id number], [facility] MCHC (RBC) [Mass/Vol] 32.3 g/dL Normal 32.0-35.0 [facility] Comment on above: Order Comment: No: D o not add to previous draw Performed By: #### 8 5499 #### [facility] [address] [place] [id number], [facility] MCV (RBC) [Entitic vol] 87.7 fL Normal 82.0-98.0 [facility] Comment on above: Order Comment: No: D o not add to previous draw Performed By: #### 8 5499 #### [facility] [address] [place] [address], [facility] Monocytes (Bld) [#/Vol] 0.7 10*3/uL Normal 0.1-1.0 [facility] Comment on above: Order Comment: No: D o not add to previous draw Performed By: #### 8 5499 #### [facility] [address] [place] [id number], [facility] MONOS 9.9 % Normal 5.0-12.0 [facility] Comment on above: Order Comment: No: D o not add to previous draw Performed By: #### 8 5499 #### [facility] [address] [place] [address], [facility] Neutrophils/100 WBC (Bld) 59.7 % Normal 40.0-72.0 [facility] Comment on above: Order Comment: No: D o not add to previous draw Performed By: #### 8 5499 #### [facility] [address] [place] [address], [facility] Nucleated RBC/100 WBC (Bld) [Ratio] 0 % Normal 0-0 [facility] Comment on above: Order Comment: No: D o not add to previous draw Performed By: #### 8 5499 #### [facility] [address] [facility] [place] [address], [facility] PLAT CNT 248 10*3/uL Normal 150-400 [facility] Comment on above: Order Comment: No: D o not add to previous draw Performed By: #### 8 5499 #### [facility] [address] [place] [id number], [facility] RBC (Bld) [#/Vol] 4.87 10*6/uL Normal 3.80-5.00 [facility] Comment on above: Order Comment: No: D o not add to previous draw Performed By: #### 8 5499 #### [facility] [address] [place] [address], [facility] WBC (Bld) [#/Vol] 7.08 10*3/uL Normal 4.00-10.60 [facility] Comment on above: Order Comment: No: D o not add to previous draw Performed By: #### 8 5499 #### [facility] [address] [place] [address], [place] MAGNESIUM BLOODon 03-17-2022 Magnesium [Mass/Vol] 1.5 mg/dL Low 1.9-2.7 [facility] Comment on above: Order Comment: No: D o not add to previous draw Performed By: #### 1 0070, 19452 #### [facility] [address] [place] [address], [place] POC GLUCOSE LABon 03-17-2022 Glucose [Mass/Vol] 406 mg/dL High 70-100 [facility] Comment on above: Performed By: #### 1 0070, 58762 #### [facility] [address] [place] [address], [place] Glucose [Mass/Vol] 282 mg/dL High 70-100 [facility] Comment on above: Performed By: #### 8 5499 #### [facility] [address] [place] [address], [place] Glucose [Mass/Vol] 152 mg/dL High 70-100 [facility] Comment on above: Performed By: #### 8 5499 #### [facility] [address] [place] [address], [place] Glucose [Mass/Vol] 199 mg/dL High 70-100 [facility] Comment on above: Performed By: #### 3 5200 #### [facility] [address] [place] [address], [place] TROPONIN-Ion 03-17-2022 Troponin I.cardiac [Mass/Vol] 0.05 ng/mL High 0.00-0.04 [facility] Comment on above: Order Comment: No: D o not add to previous draw Result Comment: REFE RENCE RANGES: 0.00 - 0.04 ng/ml NORMAL 0.05 - 0.50 ng/ml INDETERMINATE > 0.50 ng/ml CONSISTENT WITH AN M.I. Performed By: #### 1 0070, 54719 #### [facility] [address] [place] [address], [facility] Troponin I.cardiac [Mass/Vol] 0.06 ng/mL High 0.00-0.04 [facility] Comment on above: Order Comment: No: D o not add to previous draw Result Comment: REFE RENCE RANGES: 0.00 - 0.04 ng/ml NORMAL 0.05 - 0.50 ng/ml INDETERMINATE > 0.50 ng/ml CONSISTENT WITH AN M.I. Performed By: #### 3 5200 #### [facility] [address] [place] [address], [facility] Troponin I.cardiac [Mass/Vol] 0.06 ng/mL High 0.00-0.04 [facility] Comment on above: Order Comment: No: D o not add to previous draw Result Comment: REFE RENCE RANGES: 0.00 - 0.04 ng/ml NORMAL 0.05 - 0.50 ng/ml INDETERMINATE > 0.50 ng/ml CONSISTENT WITH AN M.I. Performed By: #### 1 0, 32581 #### [facility] [address] BASIC METABOLIC PANELon 06-2 Calcium [Mass/Vol] 9.1 mg/dL Normal 8.6-10.3 [facility] Comment on above: Order Comment: No: D o not add to previous draw Performed By: #### 8 4729 #### [facility] [address] [place] [address], [facility] Chloride [Moles/Vol] 103 mmol/L Normal 98-107 [facility] Comment on above: Order Comment: No: D o not add to previous draw Performed By: #### 8 5439 #### [facility] [address] [place] [address], [place] CO2 [Moles/Vol] 24 mmol/L Normal 21-31 [facility] Comment on above: Order Comment: No: D o not add to previous draw Performed By: #### 8 5499 #### [facility] [address] [place] [address], [place] Creatinine [Mass/Vol] 0.68 mg/dL Normal 0.60-1.20 [facility] Comment on above: Order Comment: No: D o not add to previous draw Performed By: #### 8 5499 #### [facility] [address] [place] [address], [place] GFR/1.73 sq M.predicted among blacks MDRD (S/P/Bld) [Vol rate/Area] mL/min/{1.73_m2} Normal >60 [facility] Comment on above: Order Comment: No: D o not add to previous draw Performed By: #### 8 5499 #### [facility] [address] [place] [address], [place] GFR/1.73 sq M.predicted among non-blacks MDRD (S/P/Bld) [Vol rate/Area] mL/min/{1.73_m2} Normal >60 [facility] Comment on above: Order Comment: No: D o not add to previous draw Performed By: #### 8 5499 #### [facility] [address] [place] [address], [place] Glucose [Mass/Vol] 196 mg/dL High 70-100 [facility] Comment on above: Order Comment: No: D o not add to previous draw Performed By: #### 8 5499 #### [facility] [address] [place] [address], [place] Potassium [Moles/Vol] 4.1 mmol/L Normal 3.5-5.1 [facility] Comment on above: Order Comment: No: D o not add to previous draw Performed By: #### 8 5499 #### [facility] [address] [place] [address], [facility] Sodium [Moles/Vol] 137 mmol/L Normal 136-145 [facility] Comment on above: Order Comment: No: D o not add to previous draw Performed By: #### 8 5499 #### [facility] [address] [place] [address], [facility] Urea nitrogen [Mass/Vol] 12 mg/dL Normal 7-25 [facility] Comment on above: Order Comment: No: D o not add to previous draw Performed By: #### 8 5499 #### [facility] [address] BNP (B-TYPE NATRIURETIC PEPT RAMAN)on 03-16-2022 Natriuretic peptide B (Bld) [Mass/Vol] 208 pg/mL High 0-100 [facility] Comment on above: Order Comment: No: D o not add to previous draw Result Comment: Give n the appropriate clinical setting a BNP result of >100 pg/mL indicates congestive heart failure. Performed By: #### 1 0070, 82575 #### [facility] [address] [facility] [address] CARDIAC VICK 3-6on 2 CK [Catalytic activity/Vol] 43 U/L Normal 26-192 [facility] Comment on above: Performed By: #### C MREP ####[facility] [address] [place], [place] [address]Mu. Antonella Medrano CK.MB [Mass/Vol] 1.84 ng/mL Normal <=3.60 [facility] Comment on above: Performed By: #### C MREP ####[facility] [address] [place], [place] [address]Kh. Antonella Medrano HSTROP 111.7 pg/mL Critically high 4.0-51.3 [facility] Comment on above: Result Comment: CUT- OFF POINTS HAVE BEEN ESTABLISHED BASED ON THE FOURTH UNIVERSAL DEFINITIONS OF MYOCARDIALINFARCTION. THE UPPER REFERENCE LIMIT (URL) OF TROPONIN, DEFINED THE 99TH PERCENTILE OFcTnI DISTRIBUTION IN A REFERENCE POPULATION, HAS BEEN CONFIRMED THE DECISION THRESHOLDFOR SC DIAGNOSIS.repeated Performed By: #### C MREP ####[facility] [address] [place] [id number]. Antonella Medrano CK [Catalytic activity/Vol] 45 U/L Normal 26-192 [facility] Comment on above: Performed By: #### C MREP ####[facility] [address] [place] [id number]. Antonella Medrano CK.MB [Mass/Vol] 1.64 ng/mL Normal <=3.60 [facility] Comment on above: Performed By: #### C MREP ####[facility] [address] [place] [address]Dr. Antonella Medrano HSTROP 88.9 pg/mL Critically high 4.0-51.[address] [facility] Comment on above: Result Comment: CUT- OFF POINTS HAVE BEEN ESTABLISHED BASED ON THE FOURTH UNIVERSAL DEFINITIONS OF MYOCARDIALINFARCTION. THE UPPER REFERENCE LIMIT (URL) OF TROPONIN, DEFINED THE 99TH PERCENTILE OFcTnI DISTRIBUTION IN A REFERENCE POPULATION, HAS BEEN CONFIRMED THE DECISION THRESHOLDFOR SC DIAGNOSIS. Performed By: #### C MREP ####[facility] [address] [place] [id number]. Antonella Medrano CARDIAC VICK ADMITon 022 CK [Catalytic activity/Vol] 45 U/L Normal 26-192 [facility] Comment on above: Performed By: #### EMMANUEL Castillo MP ####[facility] [address] [place] [id number]. Antonella Medrano CK.MB [Mass/Vol] 1.93 ng/mL Normal <=3.60 [facility] Comment on above: Performed By: #### EMMANUEL Castillo MP ####[facility] [address] [place] [id number]. Antonella Medrano HSTROP 84.6 pg/mL Critically high 4.0-51.3 [facility] Comment on above: Result Comment: CUT- OFF POINTS HAVE BEEN ESTABLISHED BASED ON THE FOURTH UNIVERSAL DEFINITIONS OF MYOCARDIALINFARCTION. THE UPPER REFERENCE LIMIT (URL) OF TROPONIN, DEFINED THE 99TH PERCENTILE OFcTnI DISTRIBUTION IN A REFERENCE POPULATION, HAS BEEN CONFIRMED THE DECISION THRESHOLDFOR SC DIAGNOSIS. Performed By: #### B EMMANUEL ROACH ####[facility] [address] [place], [place] [address]Dr. Antonella Medrano CHRISTOPHER 79 ng/mL Normal 9-82 [facility] Comment on above: Performed By: #### B EMMANUEL ROACH ####[facility] [address] [place], [place] [address]Dr. Antonella Medrano CBC AUTO DIFFon 03-16-2022 BASO # 0.0 103/ul Normal 0.0-0.[address] [facility] Comment on above: Performed By: #### C BC ####[facility] [address] [place], [place] [address]Dr. Antonella Medrano Basophils/100 WBC (Bld) 0.5 % Normal 0.2-2.[address] [facility] Comment on above: Performed By: #### C BC ####[facility] [address] [place], [place] [address]Dr. Antonella Medrano EO # 0.2 103/ul Normal 0.0-0.[address] [facility] Comment on above: Performed By: #### C BC ####[facility] [address] [place], [place] [address]Dr. Antonella Medrano Eosinophils/100 WBC (Bld) 2.9 % Normal 0.9-7.0 [facility] Comment on above: Performed By: #### C BC ####[facility] [address] [place], [place] [address]Dr. Antonella Medrano Erythrocyte distribution width (RBC) [Ratio] 13.2 % Normal 11.0-15.0 [facility] Comment on above: Performed By: #### C BC ####[facility] [address] [place], [place] [address]Dr. Antonella Medrano Hematocrit (Bld) [Volume fraction] 44.5 % Normal 36.0-48.0 [facility] Comment on above: Performed By: #### C BC ####[facility] [address] [place] [id number]. Antonella Medrano Hemoglobin (Bld) [Mass/Vol] 14.7 g/dL Normal 12.0-16.[address] [facility] Comment on above: Performed By: #### C BC ####[facility] [address] [place] [id number]. Antonella Medrano IG # 0.10 10e3/ul Critically high 0.00-0.[address] [facility] Comment on above: Performed By: #### C BC ####[facility] [address] [place] [address]Dr. Antonella Mitchell IG % 1.3 % Critically high 0.0-0.[address] [facility] Comment on above: Performed By: #### C BC ####[facility] [address] [place], [place] [address]Dr. Antonella Mitchell LYMPH # 1.7 103/ul Normal 1.2-3.8 [facility] Comment on above: Performed By: #### C BC ####[facility] [address] [place] [address]Dr. Antonella Mitchell Lymphocytes/100 WBC (Bld) 22.0 % Normal 20.5-60.[address] [facility] Comment on above: Performed By: #### C BC ####[facility] [address] [place] [address]Dr. Mariafilemon Medrano MANUAL DIFF REQ NO Normal [facility] Comment on above: Performed By: #### C BC ####[facility] [address]cj[address] [place] [id number]. Antonella Medrano MCH (RBC) [Entitic mass] 28.7 pg Normal 26.7-34.0 [facility] Comment on above: Performed By: #### C BC ####[facility] [address] [place] [id number]. Antonella Mitchell MCHC (RBC) [Mass/Vol] 33.0 g/dL Normal 29.9-35.2 [facility] Comment on above: Performed By: #### C BC ####[facility] [address]kn[address] [place] [phone]. Antonella Medrano MCV (RBC) [Entitic vol] 86.7 fL Normal 81.0-99.[address] [facility] Comment on above: Performed By: #### C BC ####[facility] [address] [place] [id number]. Antonella Medrano MONO # 0.7 103/ul Normal 0.3-0.8 [facility] Comment on above: Performed By: #### C BC ####[facility] [address] [place] [address]Dr. Mariafilemon Medrano Monocytes/100 WBC (Bld) 9.8 % Normal 1.7-12.[address] [facility] Comment on above: Performed By: #### C BC ####[facility] [address] [place], [place] [address]Dr. Antonella Medrano NEUT # 4.8 103/ul Normal 1.4-6.5 [facility] Comment on above: Performed By: #### C BC ####[facility] [address] [place], [place] [address]Dr. Antonella Mitchell Neutrophils/100 WBC (Bld) 63.5 % Normal 43.0-75.0 [facility] Comment on above: Performed By: #### C BC ####[facility] [address] [place], [place] [address]Dr. Antonella Mitchell Platelet mean volume (Bld) [Entitic vol] 10.5 fL Normal 9.5-13.5 [facility] Comment on above: Performed By: #### C BC ####[facility] [address] [place] [id number]. Antonella Mitchell PLT 262 103/ul Normal 150-450 [facility] Comment on above: Performed By: #### C BC ####[facility] Fnjthabuir[address]68 [place] [id number]. Antonella Medrano RBC 5.13 106/ul Normal 4.20-5.40 [facility] Comment on above: Performed By: #### C BC ####[facility] Hoiorplsyk8035 [place], [place] [address]Dq. Antonella Medrano WBC 7.5 103/ul Normal 4.0-11.[address] [facility] Comment on above: Performed By: #### C BC ####[facility] Tntiblsoqv9388 [place], [place] [address]Zs. Antonella Medrano CBC W/DIFFon 03-16-2022 ABS IMM GRANS 0.1 10*3/uL Normal 0.0-0.2 [facility] Comment on above: Performed By: #### 1 69, 12847 #### [facility] [address] [place] [address], [facility] ABS NEUTROPHILS 4.3 10*3/uL Normal 1.6-7.6 [facility] Comment on above: Performed By: #### 1 69, 72623 #### [facility] [address] [place] [address], [facility] Basophils (Bld) [#/Vol] 0.0 10*3/uL Normal 0.0-0.2 [facility] Comment on above: Performed By: #### 1 69, 76661 #### [facility] [address] [facility] [place] [address], [facility] Basophils/100 WBC (Bld) 0.3 % Normal 0.0-1.0 [facility] Comment on above: Performed By: #### 1 69, 38086 #### [facility] [address] [place] [address], [facility] Eosinophils (Bld) [#/Vol] 0.3 10*3/uL Normal 0.0-0.5 [facility] Comment on above: Performed By: #### 1 69, 52545 #### [facility] [address] [facility] [address], [facility] Eosinophils/100 WBC (Bld) 3.4 % Normal 0.0-6.0 [facility] Comment on above: Performed By: #### 1 69, 43988 #### [facility] [address] [place] [address], [facility] Erythrocyte distribution width (RBC) [Ratio] 13.5 % Normal 11.5-15.0 [facility] Comment on above: Performed By: #### 1 69, 65653 #### [facility] [address] [place] [address], [facility] Hematocrit (Bld) [Volume fraction] 46.2 % High 36.0-45.0 [facility] Comment on above: Performed By: #### 1 69, 55142 #### [facility] [address] [place] [address], [facility] Hemoglobin (Bld) [Mass/Vol] 15.3 g/dL High 12.0-15.0 [facility] Comment on above: Performed By: #### 1 69, #### [facility] [address] [facility] [address], [facility] IMMATURE GRANS 0.9 % Normal 0.0-1.0 [facility] Comment on above: Performed By: #### 1 69, 21174 #### [facility] [address] [facility] [address], [facility] Lymphocytes (Bld) [#/Vol] 2.2 10*3/uL Normal 1.2-4.0 [facility] Comment on above: Performed By: #### 1 69, 72426 #### [facility] [address] [place] [address], [facility] Lymphocytes/100 WBC (Bld) 29.1 % Normal 20.0-45.0 [facility] Comment on above: Performed By: #### 1 69, 86937 #### [facility] [address] [place] [id number], [facility] MCH (RBC) [Entitic mass] 28.4 pg Normal 27.0-33.0 [facility] Comment on above: Performed By: #### 1 69, 83336 #### [facility] [address] [facility] [address], [facility] MCHC (RBC) [Mass/Vol] 33.1 g/dL Normal 32.0-35.0 [facility] Comment on above: Performed By: #### 1 69, 44947 #### [facility] [address] [facility] [address], [facility] MCV (RBC) [Entitic vol] 85.9 fL Normal 82.0-98.0 [facility] Comment on above: Performed By: #### 1 69, 53660 #### [facility] [address] [place] [address], [facility] Monocytes (Bld) [#/Vol] 0.7 10*3/uL Normal 0.1-1.0 [facility] Comment on above: Performed By: #### 1 69, 84696 #### [facility] [address] [place] [address], [facility] MONOS 9.8 % Normal 5.0-12.0 [facility] Comment on above: Performed By: #### 1 69, 23166 #### [facility] [address] [place] [address], [facility] Neutrophils/100 WBC (Bld) 56.5 % Normal 40.0-72.0 [facility] Comment on above: Performed By: #### 1 69, 39222 #### [facility] [address] [place] [address], [facility] Nucleated RBC/100 WBC (Bld) [Ratio] 0 % Normal 0-0 [facility] Comment on above: Performed By: #### 1 69, 95905 #### [facility] [address] [place] [address], [facility] PLAT CNT 245 10*3/uL Normal 150-400 [facility] Comment on above: Performed By: #### 1 0070, 01419 #### [facility] [address] [place] [address], [facility] RBC (Bld) [#/Vol] 5.38 10*6/uL High 3.80-5.00 [facility] Comment on above: Performed By: #### 1 0070, 89731 #### [facility] [address] [facility] [address], [facility] WBC (Bld) [#/Vol] 7.56 10*3/uL Normal 4.00-10.60 [facility] Comment on above: Performed By: #### 1 0070, 02779 #### [facility] [address] CULTURE URINEon 03-16-2022 CULTURE URINE Culture Observations : MODERATE GROWTH OF MIXED GENITAL LUCY. NO POTENTIAL PATHOGENS SEEN. Normal [facility] Comment on above: Performed By: #### U RCX ####[facility] Mpogcvzpiz7184 [place], [place] [address]At. Antonella Mitchell Covid-19 PCR (CVDTB)on 02-22 SARS-CoV-2 (COVID-19) RNA TAISHA+probe Ql (Unsp spec) Not detected Normal NOT DETECTED [facility] Comment on above: Result Comment: When diagnostic [...] for this test is supported by the Beaming Inspector of Health and Human Service's declaration that [...] be used). Performed By: #### C VDTB ####[facility] Pyjjgiqcqg[address] [place], [place] [address]Dr. Antonella Medrano ER URINE PROFILEon 2 Bilirubin Ql (U) Negative Normal NEGATIVE [facility] Comment on above: Performed By: #### LATA CLARKRO ####[facility] Urpqbkgihd[address] [place], [place] [address]Dr. Antonella Medrano Clarity (U) CLEAR Normal CLEAR [facility] Comment on above: Performed By: #### LATA CLARKRO ####[facility] Txbnqqchny[address] [place], [place] [address]Dr. Antonella Medrano Color (U) LT. YELLOW Normal YELLOW [facility] Comment on above: Performed By: #### LATA CLARKRO ####[facility] Eyypfrawir[address] [place], [place] [address]Dr. Antonella Medrano ERUAHD A micrscopic examina tion will be performed if indicated. Normal [facility] Comment on above: Performed By: #### LATA CLARKRO ####[facility] Uemutossuw[address] [place], [place] [address]Dr. Antonella Medrano Glucose Ql (U) >1000 Abnormal NEGATIVE [facility] Comment on above: Performed By: #### LATA CLARKRO ####[facility] Tmfkcdggum[address] [place], [place] [address]Dr. Antonella Medrano Hemoglobin Ql (U) TRACE-INTACT Abnormal NEGATIVE [facility] Comment on above: Performed By: #### LATA CLARKRO ####[facility] Igaharlnnr[address] [place], [place] [address]Dr. Antonella Medrano Ketones Ql (U) Negative Normal NEGATIVE [facility] Comment on above: Performed By: #### LATA CLARKRO ####[facility] Oecjasyrce[address] [place], [place] [address]Dr. Antonella Medrano LEUKOCYTES Negative Normal NEGATIVE [facility] Comment on above: Performed By: #### LATA CLARKRO ####[facility] Qaopptecqd5[address] [place] [address]Dr. Antonella Medrano Nitrite Ql (U) Negative Normal NEGATIVE [facility] Comment on above: Performed By: #### LATA CLARKRO ####[facility] Rmpyfgpcxp0618 [place] [address]Dr. Antonella Medrano pH (U) 6.0 [pH] Normal 5-[address] [facility] Comment on above: Performed By: #### LATA CLARKRO ####[facility] Wsifsveivm2304 [place] [address]Dr. Antonella Medrano SPEC GRAVITY 1.010 Normal 1.005-<=1.[address] [facility] Comment on above: Performed By: #### LATA CLARKRO ####[facility] Fodwxoqwkc30[address] [place] [address]Dr. Antonella Medrano UA PROTEIN TRACE Normal NEGATIVE/ TRACE [facility] Comment on above: Performed By: #### LATA CLARKRO ####[facility] Vpnwxtxeqc5302 [place] [address]Dr. Antonella Medrano UR MICRO IND INDICATED Normal [facility] Comment on above: Performed By: #### LATA CLARKRO ####[facility] Vhnvllwvux2918 [place] [address]Dr. Antonella Medrano Urobilinogen Qn (U) 0.2 {Oleg'U}/dL Normal 0.2 - 1. [address] [facility] Comment on above: Performed By: #### LATA CLARKRO ####[facility] Ovsqbjpndn0567 [place] [address]Dr. Antonella Medrano POC GLUCOSE LABon 03-16-2022 Glucose [Mass/Vol] 337 mg/dL High 70-100 [facility] Comment on above: Performed By: #### 8 5499 #### [facility] [address] [facility] [place] [address], [facility] Glucose [Mass/Vol] 288 mg/dL High 70-100 The [facility] Comment on above: Performed By: #### 1 0070, 36659 #### [facility] [address] [place] [address], [facility] Glucose [Mass/Vol] 197 mg/dL High 70-100 [facility] Comment on above: Performed By: #### 1 0070, 45914 #### [facility] [address] [place], [place] [id number] [place] [address] POC SARS COV2 ANTIGEN NEGATI VEon 03-16-2022 POC SARS COV2 ANTIGEN NEG Negative Normal NEGATIVE [facility] Comment on above: Result [...] antigen from SARS-CoV-2 in direct nasopharyngeal swab (HEALTHCARE EDUCATOR) specimens from individuals who are suspected of [...] Accreditation. Performed By: #### 8 5499 #### [facility] [address] [place] [address], [facility] POINT OF CARE GLUCOSEon 02-22 Glucose [Mass/Vol] 343 mg/dL Critically high 74-106 [facility] Comment on above: Performed By: #### P OCGLUC ####[facility] Cvpuwauhyh4526 [place] [address]Dr. Antonella Medrano Glucose [Mass/Vol] 516 mg/dL Critically high 74-106 [facility] Comment on above: Result Comment: Resu lt Not Confirmed Performed By: #### P OCGLUC ####[facility] Ccxxkgqsfy2358 [place] [address]Dr. Antonella Medrano PROF CHEM 8 (BAS METB)on Anion gap [Moles/Vol] 10.9 mmol/L Normal [facility] Comment on above: Performed By: #### B MARLEY, CMADM ####[facility] Mquqbgmaqb1281 [place] [address]Dr. Antonella Medrano Calcium [Mass/Vol] 8.9 mg/dL Normal 8.5-10.[address] [facility] Comment on above: Performed By: #### B MARLEY, CMADM ####[facility] Gvebevonug[address] [place], [place] [address]Dr. Antonella Medrano Chloride [Moles/Vol] 99 mmol/L Normal 98-[address] [facility] Comment on above: Performed By: #### B MARLEY, CMADM ####[facility] Cxlorwhqqv[address] [place], [place] [address]Dr. Antonella Medrano CO2 [Moles/Vol] 29.1 mmol/L Normal 21.0-32.[address] [facility] Comment on above: Performed By: #### B MARLEY, CMADM ####[facility] [address]zsvvfht[address] [place], [place] [address]Dr. Antonella Medrano Creatinine [Mass/Vol] 1.05 mg/dL Critically high 0.55-1.[address] [facility] Comment on above: Performed By: #### B MARLEY, CMADM ####[facility] Xvxcutgwel[address] [place], [place] [address]Dr. Antonella Medrano EGFR-AF MALDIVIAN >60 Normal >=[address] [facility] Comment on above: Performed By: #### B MARLEY, CMADM ####[facility] Jtlikxgdzk[address] [place], [place] [address]Dr. Antonella Medrano EGFR-NON AF MALDIVIAN 53 mL/min/1.73m2 Critically low >=[address] [facility] Comment on above: Performed By: #### B MARLEY, EMMANUEL ####[facility] Ewxghxnybe6250 [place] [address]Dr. Antonella Medrano Glucose [Mass/Vol] 466 mg/dL Critically high 74-106 [facility] Comment on above: Performed By: #### B MARLEY, EMMANUEL ####[facility] Nivldmiuee0574 [place] [address]Dr. Antonella Medrano Potassium [Moles/Vol] 4.0 mmol/L Normal 3.5-5.[address] [facility] Comment on above: Performed By: #### B MARLEY, EMMANUEL ####[facility] Oclvdxfrdu[address] [place], [place] [address]Dr. Antonella Medrano Sodium [Moles/Vol] 135 mmol/L Critically low 136-145 [facility] Comment on above: Performed By: #### B MARLEY, EMMANUEL ####[facility] Ymsokdbjul[address] [place], [place] [address]Dr. Antonella Medrano Urea nitrogen [Mass/Vol] 16.0 mg/dL Normal 7.0-18.[address] [facility] Comment on above: Performed By: #### B EMMANUEL ROACH ####[facility] Yitlifquiq[address] [place], [place] [address]Dr. Antonella Medrano Urea nitrogen/Creatinine [Mass ratio] 15.2 mg/mg Normal [facility] Comment on above: Performed By: #### B EMMANUEL ROACH ####[facility] Dfnguomugq[address] [place], [place] [address]Dr. Antonella Medrano TROPONIN-Ion 03-16-2022 Troponin I.cardiac [Mass/Vol] 0.07 ng/mL High 0.00-0.04 [facility] Comment on above: Order Comment: No: D o not add to previous draw Result Comment: REFE RENCE RANGES: 0.00 - 0.04 ng/ml NORMAL 0.05 - 0.50 ng/ml INDETERMINATE > 0.50 ng/ml CONSISTENT WITH AN M.I. Performed By: #### 3 5200 #### [facility] [address] [place] [address], [facility] Troponin I.cardiac [Mass/Vol] 0.08 ng/mL High 0.00-0.04 [facility] Comment on above: Order Comment: No: D o not add to previous draw Result Comment: REFE RENCE RANGES: 0.00 - 0.04 ng/ml NORMAL 0.05 - 0.50 ng/ml INDETERMINATE > 0.50 ng/ml CONSISTENT WITH AN M.I. Performed By: #### 8 5499 #### [facility] [address] [place] [address], [facility] URINE MICROSCOPIC ONLYon BACTERIA TRACE Abnormal NONE SEEN [facility] Comment on above: Performed By: #### HALEY CLARK ####[facility] Cqwwoevpea77[address] [place] [address]Dr. Antonella Medrano Bacteria identified Cx Nom (U) INDICATED Normal [facility] Comment on above: Performed By: #### LATA CLARKRO ####[facility] Jpxabqpjnw4556 [place] [address]Dr. Antonella Medrano CAST NONE SEEN Normal NONE SEEN [facility] Comment on above: Performed By: #### LATA CLARKRO ####[facility] Bkrybdtkpq1807 [place] [address]Dr. Antonella Medrano Crystals LM Nom (Urine sed) NONE SEEN Normal NONE SEEN [facility] Comment on above: Performed By: #### LATA CLARKRO ####[facility] Eaythphwpk3826 [place] [address]Dr. Antonella Medrano Epithelial cells LM Ql (Urine sed) FEW Abnormal NONE SEEN /RARE [facility] Comment on above: Performed By: #### LATA CLARKRO ####[facility] Hoeplvvtcg9059 [place] [address]Dr. Marialan Medrano MUCOUS NONE SEEN Normal NONE SEEN [facility] Comment on above: Performed By: #### LATA CLARKRO ####[facility] Omofeemzva[address] [place] [address]Dr. Antonella Medrano RBC 5-10 Abnormal 0-2 [facility] Comment on above: Performed By: #### HALEY CLARK ####[facility] Tghfinbvur2394 [place] [address]Dr. Antonella Medrano WBC 10-20 Abnormal NONE SEEN [facility] Comment on above: Performed By: #### HALEY CLARK ####[facility] Umuchupftd6103 [place] [address]Dr. Antonella Medrano XR CHEST 1 Von 03-16-2022 XR CHEST 1 V Normal [facility] CBC AUTO DIFFon 02-17-2022 BASO # 0.0 103/ul Normal 0.0-0.1 [facility] Comment on above: Performed By: #### C BC ####[facility] C[address]ammkkkk[address] [place], [place] [address]Dr. Antonella Medrano Basophils/100 WBC (Bld) 0.4 % Normal 0.2-2.0 [facility] Comment on above: Performed By: #### C BC ####[facility] Okwhsrgcrs[address] [place], [place] [address]Dr. Antonella Medrano EO # 0.2 103/ul Normal 0.0-0.7 [facility] Comment on above: Performed By: #### C BC ####[facility] Dylmowqcxv[address] [place], [place] [address]Dr. Mariafilemon Medrano Eosinophils/100 WBC (Bld) 2.8 % Normal 0.9-7.0 [facility] Comment on above: Performed By: #### C BC ####[facility] [address]qdrttaywv[address] [place], [place] [address]Dr. Mariafilemon Medrano Erythrocyte distribution width (RBC) [Ratio] 12.5 % Normal 11.0-15.0 [facility] Comment on above: Performed By: #### C BC ####[facility] Netendcneu25[address] [place], [place] [address]Dr. Mariafilemon Medrano Hematocrit (Bld) [Volume fraction] 45.7 % Normal 36.0-48.0 [facility] Comment on above: Performed By: #### C BC ####[facility] Oiewhdhweo[address] [place] [address]Dr. Antonella Medrano Hemoglobin (Bld) [Mass/Vol] 15.1 g/dL Normal 12.0-16.0 [facility] Comment on above: Performed By: #### C BC ####[facility] Qfgyzdoihk9004 [place] [address]Dr. Antonella Medrano IG # 0.04 10e3/ul Critically high 0.00-0.03 [facility] Comment on above: Performed By: #### C BC ####[facility] Hutijhnedl4[address] [place] [address]Dr. Antonella Medrano IG % 0.5 % Normal 0.0-0.5 [facility] Comment on above: Performed By: #### C BC ####[facility] Maggbfecjf90[address] [place], [place] [address]Dr. Mariafilemon Mitchell LYMPH # 2.3 103/ul Normal 1.2-3.8 [facility] Comment on above: Performed By: #### C BC ####[facility] Izxucgjnzm[address] [place], [place] [address]Dr. Antonella Medrano Lymphocytes/100 WBC (Bld) 26.7 % Normal 20.5-60.0 [facility] Comment on above: Performed By: #### C BC ####[facility] Dwlplgjojs[address] [place], [place] [address]Dr. Antonella Medrano MANUAL DIFF REQ NO Normal [facility] Comment on above: Performed By: #### C BC ####[facility] Emniaqmrip[address] [place], [place] [address]Dr. Antonella Medrano MCH (RBC) [Entitic mass] 28.4 pg Normal 26.7-34.0 [facility] Comment on above: Performed By: #### C BC ####[facility] Aheejfwsru[address] [place], [place] [address]Dr. Antonella Medrano MCHC (RBC) [Mass/Vol] 33.0 g/dL Normal 29.9-35.2 [facility] Comment on above: Performed By: #### C BC ####[facility] Nqohfqpgtn4119 [place] [id number]. Antonella Medrano MCV (RBC) [Entitic vol] 86.1 fL Normal 81.0-99.0 [facility] Comment on above: Performed By: #### C BC ####[facility] Qtjmnhvpir7736 [place] [id number]. Antonella Medrano MONO # 0.7 103/ul Normal 0.3-0.8 [facility] Comment on above: Performed By: #### C BC ####[facility] Rlqndyeslo9215 [place] [address]Dr. Antonella Medrano Monocytes/100 WBC (Bld) 7.8 % Normal 1.7-12.0 [facility] Comment on above: Performed By: #### C BC ####[facility] Yxqmutbwst38[address] [place] [address]Dr. Antonella Medrano NEUT # 5.2 103/ul Normal 1.4-6.5 [facility] Comment on above: Performed By: #### C BC ####[facility] Nbpifzxeix3069 [place] [id number]. Antonella Medrano Neutrophils/100 WBC (Bld) 61.8 % Normal 43.0-75.0 [facility] Comment on above: Performed By: #### C BC ####[facility] Uwmrwcrlrn9870 [place] [address]Dr. Antonella Medrano Platelet mean volume (Bld) [Entitic vol] 11.8 fL Normal 9.5-13.5 [facility] Comment on above: Performed By: #### C BC ####[facility] Fveqlrxvui3760 [place] [phone]. Antonella Medrano PLT 203 103/ul Normal 150-450 [facility] Comment on above: Performed By: #### C BC ####[facility] [address]kwftq[address] [place], [place] [address]Dr. Antonella Medrano RBC 5.31 106/ul Normal 4.20-5.40 [facility] Comment on above: Performed By: #### C BC ####[facility] Fdugfmhdek[address] [place], [place] [address]Dr. Antonella Medrano WBC 8.4 103/ul Normal 4.0-11.[address] [facility] Comment on above: Performed By: #### C BC ####[facility] Aceijspita[address] [place] [address]Dr. Antonella Medrano POINT OF CARE GLUCOSEon 01-22 Glucose [Mass/Vol] 363 mg/dL Critically high 74-106 [facility] Comment on above: Performed By: #### P OCGLUC ####[facility] Wsbyzyyxhf8807 [place] [address]Dr. Antonella Medrano Glucose [Mass/Vol] 288 mg/dL Critically high -106 [facility] Comment on above: Performed By: #### P OCGLUC ####[facility] Pfbivcgvia2951 [place] [address]Dr. Antonella Medrano PROF CHEM 8 (BAS METB)on Anion gap [Moles/Vol] 12.1 mmol/L Normal [facility] Comment on above: Performed By: #### B MP ####[facility] Cigmnyuyse[address] [place] [address]Dr. Antonella Medrano Calcium [Mass/Vol] 8.7 mg/dL Normal 8.5-10.[address] [facility] Comment on above: Performed By: #### B MP ####[facility] Fgnslawrpm7558 [place] [address]Dr. Antonella Medrano Chloride [Moles/Vol] 104 mmol/L Normal 98-[address] [facility] Comment on above: Performed By: #### B MP ####[facility] Jedyhwcceq5798 [place] [address]Dr. Mariafilemon Mitchell CO2 [Moles/Vol] 23.3 mmol/L Normal 21.0-32.[address] [facility] Comment on above: Performed By: #### B MP ####[facility] Oepgtcqaml8[address] [place] [address]Dr. Antonella Medrano Creatinine [Mass/Vol] 0.79 mg/dL Normal 0.55-1.[address] [facility] Comment on above: Performed By: #### B MP ####[facility] Pyhfuvshex59[address] [place] [phone]. Antonella Medrano EGFR-AF MALDIVIAN >60 Normal >=[address] [facility] Comment on above: Performed By: #### B MP ####[facility] [address] [place] [id number]. Antonella Medrano EGFR-NON AF MALDIVIAN >60 Normal >=[address] [facility] Comment on above: Performed By: #### B MP ####[facility] [address] [place] [address]Dr. Antonella Medrano Glucose [Mass/Vol] 291 mg/dL Critically high 74-106 [facility] Comment on above: Performed By: #### B MP ####[facility] [address]nefwff[address] [place] [address]Dr. Antonella Medrano Potassium [Moles/Vol] 4.4 mmol/L Normal 3.5-5.[address] [facility] Comment on above: Performed By: #### B MP ####[facility] Jbdnjzincs[address] [place] [address]Dr. Antonella Medrano Sodium [Moles/Vol] 135 mmol/L Critically low 136-145 [facility] Comment on above: Performed By: #### B MP ####[facility] Mbuywfabff27[address] [place] [address]Dr. Antonella Medrano Urea nitrogen [Mass/Vol] 20.0 mg/dL Critically high 7.0-18.[address] [facility] Comment on above: Performed By: #### B MP ####[facility] [address]fvp[address] [place] [address]Dr. Antonella Medrano Urea nitrogen/Creatinine [Mass ratio] 25.3 mg/mg Normal [facility] Comment on above: Performed By: #### B MP ####[facility] Pbtysteozw[address] [place] [address]Dr. Antonella Medrano CBC AUTO DIFFon 02-16-2022 BASO # 0.0 103/ul Normal 0.0-0.[address] [facility] Comment on above: Performed By: #### C BC ####[facility] Itwgprjxuu67[address] [place] [id number]. Antonella Medrano Basophils/100 WBC (Bld) 0.3 % Normal 0.2-2.0 [facility] Comment on above: Performed By: #### C BC ####[facility] Ysvzqkalqt22[address] [place] [phone]. Antonella Medrano EO # 0.1 103/ul Normal 0.0-0.7 [facility] Comment on above: Performed By: #### C BC ####[facility] Awpfdrfs[address] [place], [place] [address]Dr. Antonella Medrano Eosinophils/100 WBC (Bld) 1.2 % Normal 0.9-7.0 [facility] Comment on above: Performed By: #### C BC ####[facility] Fczhgccrkw[address] [place], [place] [address]Dr. Antonella Medrano Erythrocyte distribution width (RBC) [Ratio] 12.5 % Normal 11.0-15.0 [facility] Comment on above: Performed By: #### C BC ####[facility] Hgkpqwxvuj[address] [place], [place] [address]Dr. Antonella Medrano Hematocrit (Bld) [Volume fraction] 51.7 % Critically high 36.0-48.0 [facility] Comment on above: Performed By: #### C BC ####[facility] Zawuevnain8[address] [place] [phone]. Antonella Medrano Hemoglobin (Bld) [Mass/Vol] 17.2 g/dL Critically high 12.0-16.0 [facility] Comment on above: Performed By: #### C BC ####[facility] Iiyxlgvrkl17[address] [place] [phone]. Antonella Medrano IG # 0.08 10e3/ul Critically high 0.00-0.03 [facility] Comment on above: Performed By: #### C BC ####[facility] Gauexcaik[address] [place], [place] [address]Dr. Antonella Medrano IG % 0.8 % Critically high 0.0-0.5 [facility] Comment on above: Performed By: #### C BC ####[facility] Nycbxqyyyu6[address] [place] [phone]. Antonella Medrano LYMPH # 2.3 103/ul Normal 1.2-3.8 [facility] Comment on above: Performed By: #### C BC ####[facility] Idiriwelel5670 [place] [phone]. Antonella Medrano Lymphocytes/100 WBC (Bld) 22.1 % Normal 20.5-60.0 [facility] Comment on above: Performed By: #### C BC ####[facility] Iasgdknrad09[address] [place] [phone]. Antonella Medrano MANUAL DIFF REQ NO Normal [facility] Comment on above: Performed By: #### C BC ####[facility] Ibmpbpgwqf4[address] [place] [address]Dr. Antonella Medrano MCH (RBC) [Entitic mass] 28.5 pg Normal 26.7-34.0 [facility] Comment on above: Performed By: #### C BC ####[facility] Oppdybynyz[address] [place] [phone]. Antonella Medrano MCHC (RBC) [Mass/Vol] 33.3 g/dL Normal 29.9-35.2 [facility] Comment on above: Performed By: #### C BC ####[facility] Lakqnmdtzn[address] [place] [phone]. Antonella Medrano MCV (RBC) [Entitic vol] 85.7 fL Normal 81.0-99.0 [facility] Comment on above: Performed By: #### C BC ####[facility] Dcfftywquj98[address] [place] [phone]. Antonella Medrano MONO # 0.9 103/ul Critically high 0.3-0.8 [facility] Comment on above: Performed By: #### C BC ####[facility] Khbdqnkvmi2292 [place] [phone]. Antonella Mitchell Monocytes/100 WBC (Bld) 8.5 % Normal 1.7-12.0 [facility] Comment on above: Performed By: #### C BC ####[facility] Mxqpkzkxuw0136 [place] [phone]. Antonella Medrano NEUT # 7.0 103/ul Critically high 1.4-6.5 [facility] Comment on above: Performed By: #### C BC ####[facility] Mnmaotdujo0760 [place] [phone]. Antonella Medrano Neutrophils/100 WBC (Bld) 67.1 % Normal 43.0-75.0 [facility] Comment on above: Performed By: #### C BC ####[facility] Hgstapbifp8203 [place] [phone]. Antonella Medrano Platelet mean volume (Bld) [Entitic vol] 11.3 fL Normal 9.5-13.[address] [facility] Comment on above: Performed By: #### C BC ####[facility] Dsehxcsjar2548 [place] [phone]. Antonella Medrano PLT 279 103/ul Normal 150-450 [facility] Comment on above: Performed By: #### C BC ####[facility] Wagtttjyua7[address] [place] [phone]. Antonella Medrano RBC 6.03 106/ul Critically high 4.20-5.40 [facility] Comment on above: Performed By: #### C BC ####[facility] Fdixovaotq4562 [place] [phone]. Antonella Medrano WBC 10.4 103/ul Normal 4.0-11.0 [facility] Comment on above: Performed By: #### C BC ####[facility] Eestodzcjh[address] [place] [phone]. Antonella Medrano CT HEAD WO CONon 02-16-2022 CT HEAD WO CON Normal [facility] CULTURE URINEon 02-16-2022 CULTURE URINE Culture Observations : LIGHT GROWTH OF MIXED GENITAL LUCY. NO POTENTIAL PATHOGENS SEEN. Normal [facility] Comment on above: Performed By: #### U RCX ####[facility] [address] [place], [place] [id number]. Antonella Medrano Covid-19 PCR (CVDTBH)on 01-22 SARS-CoV-2 (COVID-19) RNA TAISHA+probe Ql (Unsp spec) Not detected Normal NOT DETECTED [facility] Comment on above: Result Comment: When diagnostic [...] for this test is supported by the Beaming Inspector of Health and Human Service's declaration that [...] be used). Performed By: #### C VDTB ####[facility] X[address]qlcrjqog[address] [place], [place] [address]Dr. Antonella Medrano ER URINE PROFILEon Bilirubin Ql (U) Negative Normal NEGATIVE [facility] Comment on above: Performed By: #### U MICRO, ERUR ####[facility] Pcahwhyirt[address] [place], [place] [address]Dr. Antonella Medrano Clarity (U) CLEAR Normal CLEAR [facility] Comment on above: Performed By: #### U MICRO, ERUR ####[facility] Ktdtuxwwtv[address] [place], [place] [address]Dr. Antonella Medrano Color (U) YELLOW Normal YELLOW [facility] Comment on above: Performed By: #### U MICRO, ERUR ####[facility] Tpdodsxfrc[address] [place], [place] [address]Dr. Antonella RAZOAHD A micrscopic examina tion will be performed if indicated. Normal [facility] Comment on above: Performed By: #### U MICRO, ERUR ####[facility] [address]suqiwyqkn[address] [place], [place] [address]Dr. Antonella Medrano Glucose Ql (U) >1000 Abnormal NEGATIVE [facility] Comment on above: Performed By: #### U MICRO, ERUR ####[facility] Ycocynfrrf[address] [place], [place] [address]Dr. Antonella Medrano Hemoglobin Ql (U) SMALL Abnormal NEGATIVE [facility] Comment on above: Performed By: #### U MICRO, ERUR ####[facility] Gttgipepum[address] [place], [place] [address]Dr. Antonella Medrano Ketones Ql (U) Negative Normal NEGATIVE [facility] Comment on above: Performed By: #### U MICRO, ERUR ####[facility] Nbzwsorcbz[address] [place], [place] [address]Dr. Antonella Medrano LEUKOCYTES SMALL Abnormal NEGATIVE [facility] Comment on above: Performed By: #### U MICRO, ERUR ####[facility] Awmrycjcoa[address] [place], [place] [address]Dr. Antonella Medrano Nitrite Ql (U) Negative Normal NEGATIVE [facility] Comment on above: Performed By: #### U MICRO, ERUR ####[facility] Llzgxewmyz5[address] [place], [place] [address]Dr. Antonella Medrano pH (U) 5.5 [pH] Normal 5-9 [facility] Comment on above: Performed By: #### U MICRO, ERUR ####[facility] Xwmzsxfnmv[address] [place], [place] [address]Dr. Antonella Medrano Protein (U) [Mass/Vol] 100 mg/dL Abnormal NEGAT LAZ/ TRACE [facility] Comment on above: Performed By: #### U MICRO, ERUR ####[facility] [address]ondqspvw[address] [place], [place] [address]Dr. Antonella Medrano SPEC GRAVITY 1.025 Normal 1.005-<=1.0 25 [facility] Comment on above: Performed By: #### U MICRO, ERUR ####[facility] Ncjsdirlbr[address] [place], [place] [address]Dr. Antonella Medrano UR MICRO IND INDICATED Normal [facility] Comment on above: Performed By: #### U MICRO, ERUR ####[facility] Scbhcyrhqa[address] [place] [address]Dr. Antonella Medrano Urobilinogen Qn (U) 0.2 {Oleg'U}/dL Normal 0.2 - 1. [address] [facility] Comment on above: Performed By: #### U MICRO, ERUR ####[facility] Jnzxybfutw[address] [place] [address]Dr. Antonella Medrano LACTATE/LACTIC ACIDon 2021 Lactate [Moles/Vol] 1.2 mmol/L Normal 0.4-1.[address] [facility] Comment on above: Performed By: #### L ACT ####[facility] Xogbqotccm[address] [place] [address]Dr. Antonella Mitchell Lactate [Moles/Vol] 2.5 mmol/L Critically high 0.4-1.[address] [facility] Comment on above: Performed By: #### L ACT ####[facility] Gnztizihfo[address] [place], [place] [address]Dr. Mariafilemon Mitchell POINT OF CARE GLUCOSEon 01-22 Glucose [Mass/Vol] 308 mg/dL Critically high 74-106 [facility] Comment on above: Performed By: #### P OCGLUC ####[facility] Tixaucdmvj[address] [place], [place] [address]Dr. Mariafilemon Mitchell Glucose [Mass/Vol] 356 mg/dL Critically high 74-106 [facility] Comment on above: Performed By: #### P OCGLUC ####[facility] Dyvrawyuuv[address] [place], [place] [address]Dr. Antonella Medrano Glucose [Mass/Vol] 254 mg/dL Critically high 74-106 [facility] Comment on above: Performed By: #### P OCGLUC ####[facility] Itznenslqn10[address] [place], [place] [address]Dr. Antonella Medrano Glucose [Mass/Vol] 103 mg/dL Normal 74-[address] [facility] Comment on above: Performed By: #### P OCGLUC ####[facility] Vudvbapywp204[address] [place], [place] [address]Dr. Antonella Medrano PROF 14(COMP METB)on 022 Albumin [Mass/Vol] 3.0 g/dL Critically low 3.4-5.0 [facility] Comment on above: Performed By: #### C MP ####[facility] Stvvtdufuy[address] [place], [place] [address]Dr. Antonella Medrano Albumin/Globulin [Mass ratio] 0.8 {ratio} Normal [facility] Comment on above: Performed By: #### C MP ####[facility] Pvcswsuseb[address] [place], [place] [address]Dr. Antonella Medrano ALP [Catalytic activity/Vol] 109 U/L Normal 46-[address] [facility] Comment on above: Performed By: #### C MP ####[facility] Yhpugwepbr[address] [place], [place] [address]Dr. Antonella Medrano ALT [Catalytic activity/Vol] 18 U/L Normal 14-[address] [facility] Comment on above: Performed By: #### C MP ####[facility] Egpdiciktu[address] [place], [place] [address]Dr. Antonella Medrano Anion gap [Moles/Vol] 14.5 mmol/L Normal [facility] Comment on above: Performed By: #### C MP ####[facility] Vhnljdsmbs[address] [place], [place] [address]Dr. Antonella Medrano AST [Catalytic activity/Vol] 11 U/L Critically low 15-[address] [facility] Comment on above: Performed By: #### C MP ####[facility] Jgyebhopjl[address] [place], [place] [address]Dr. Antonella Medrano Bilirubin [Mass/Vol] 0.3 mg/dL Normal 0.2-1.[address] [facility] Comment on above: Performed By: #### C MP ####[facility] Fmmbadpehc404[address] [place], [place] [address]Dr. Antonella Medrano Calcium [Mass/Vol] 9.2 mg/dL Normal 8.5-10.[address] [facility] Comment on above: Performed By: #### C MP ####[facility] Yamnudvyal9064[address] [place], [place] [address]Dr. Antonella Medrano Chloride [Moles/Vol] 99 mmol/L Normal 98-107 [facility] Comment on above: Performed By: #### C MP ####[facility] Isurjetkwl177[address] [place], [place] [address]Dr. Antonella Medrano CO2 [Moles/Vol] 25.5 mmol/L Normal 21.0-32.0 [facility] Comment on above: Performed By: #### C MP ####[facility] Nqasvxmsug9[address] [place], [place] [address]Dr. Antonella Mitchell Creatinine [Mass/Vol] 1.57 mg/dL Critically high 0.55-1.02 [facility] Comment on above: Performed By: #### C MP ####[facility] Ffkjgvpqwk9[address] [place], [place] [address]Dr. Antonella Mitchell EGFR-AF MALDIVIAN 40 mL/min/1.73m2 Critically low >=60 [facility] Comment on above: Performed By: #### C MP ####[facility] Nqjwgwzagv18[address] [place], [place] [address]Dr. Antonella Mitchell EGFR-NON AF MALDIVIAN 33 mL/min/1.73m2 Critically low >=60 [facility] Comment on above: Performed By: #### C MP ####[facility] Hmcuofjjxy[address] [place], [place] [address]Dr. Antonella Mitchell Globulin (S) [Mass/Vol] 3.9 g/dL Normal [facility] Comment on above: Performed By: #### C MP ####[facility] Nslvtxaqsm[address] [place], [place] [address]Dr. Antonella Mitchell Glucose [Mass/Vol] 99 mg/dL Normal 74-106 [facility] Comment on above: Performed By: #### C MP ####[facility] Tfrmtygmpa[address] [place], [place] [address]Dr. Antonella Medrano Potassium [Moles/Vol] 4.0 mmol/L Normal 3.5-5.1 [facility] Comment on above: Performed By: #### C MP ####[facility] Sjoeedntjl94[address] [place], [place] [address]Dr. Antonella Medrano Protein [Mass/Vol] 6.9 g/dL Normal 6.4-8.2 [facility] Comment on above: Performed By: #### C MP ####[facility] Mvqjmxubxg8[address] [place] [address]Dr. Mariafilemon Medrano Sodium [Moles/Vol] 135 mmol/L Critically low 136-145 [facility] Comment on above: Performed By: #### C MP ####[facility] Uykqjejcin[address] [place], [place] [address]Dr. Mariafilemon Medrano Urea nitrogen [Mass/Vol] 35.0 mg/dL Critically high 7.0-18.[address] [facility] Comment on above: Performed By: #### C MP ####[facility] Vxasxtuidr[address] [place], [place] [address]Dr. Antonella Medrano Urea nitrogen/Creatinine [Mass ratio] 22.3 mg/mg Normal [facility] Comment on above: Performed By: #### C MP ####[facility] Tmxdptxvpa[address] [place], [place] [address]Dr. Antonella Medrano URINE MICROSCOPIC ONLYon BACTERIA TRACE Abnormal NONE SEEN [facility] Comment on above: Performed By: #### U MICRO, ERUR ####[facility] Eldffmjdpu[address] [place], [place] [address]Dr. Antonella Medrano Bacteria identified Cx Nom (U) INDICATED Normal [facility] Comment on above: Performed By: #### U MICRO, ERUR ####[facility] [address]fydhil[address] [place], [place] [address]Dr. Antonella Medrano CAST SEEN Abnormal NONE SEEN [facility] Comment on above: Performed By: #### U MICRO, ERUR ####[facility] [address]lvlkcmuer[address] [place], [place] [address]Dr. Antonella Medrano Crystals LM Nom (Urine sed) NONE SEEN Normal NONE SEEN [facility] Comment on above: Performed By: #### U MICRO, ERUR ####[facility] [address]scqhyhepw[address] [place], [place] [address]Dr. Antonella Medrano Epithelial cells LM Ql (Urine sed) RARE Normal NONE SEEN /RARE [facility] Comment on above: Performed By: #### U MICRO, ERUR ####[facility] Rszedhfqde2125 [place], [place] [address]Bd. Antonella Medrano MUCOUS NONE SEEN Normal NONE SEEN [facility] Comment on above: Performed By: #### U MICRO, ERUR ####[facility] [address]sfshh[address] [place], [place] [address]Ak. Antonella Medrano RBC 0-2 Normal 0-2 [facility] Comment on above: Performed By: #### U MICRO, ERUR ####[facility] [address]ijs[address]xstku[address] [place], [place] [address]Mw. Antonella Medrano WBC 20-50 Abnormal NONE SEEN [facility] Comment on above: Performed By: #### U MICRO, ERUR ####[facility] [address] [place] [id number]. Antonella Medrano XR CHEST 1 Von 02-16-2022 XR CHEST 1 V Normal [facility] Complete Blood Counton 02-15 Erythrocyte distribution width (RBC) [Ratio] 12.4 % Normal 11.0-15.0 [facility] Comment on above: Performed By: #### C BC, CMP #### [facility] [address] [place], [place] [id number] Hematocrit (Bld) [Volume fraction] 50.9 % High 35.0-47.0 [facility] Comment on above: Performed By: #### C BC, CMP #### [facility] [address] [place], [place] [id number] Hemoglobin (Bld) [Mass/Vol] 17.2 g/dL High 11.6-15.5 [facility] Comment on above: Performed By: #### C BC, CMP #### [facility] [address] [place], [place] [id number] MCH (RBC) [Entitic mass] 28.6 pg Normal 27.0-33.0 [facility] Comment on above: Performed By: #### C BC, CMP #### [facility] [address] [place], [place] [id number] MCHC (RBC) [Mass/Vol] 33.8 g/dL Normal 32.0-36.0 [facility] Comment on above: Performed By: #### C BC, CMP #### [facility] [address] [place], [place] [id number] MCV (RBC) [Entitic vol] 85 fL Normal 80-100 [facility] Special[facility] Comment on above: Performed By: #### C BC, CMP #### [facility] [address] [place], [place] [id number] Platelet mean volume (Bld) [Entitic vol] 11.60 fL Normal 7.50-12.50 [facility] Comment on above: Performed By: #### C BC, CMP #### [facility] [address] [place], [place] [id number] Platelets (Bld) [#/Vol] 273 10*3/uL Normal 140-400 [facility] Comment on above: Performed By: #### C BC, CMP #### [facility] [address] [place], [place] [id number] RBC (Bld) [#/Vol] 6.01 10*6/uL High 3.90-5.20 [facility] Specialist Comment on above: Performed By: #### C BC, CMP #### [facility] [address] [place], [place] [id number] RDW-SD 37.6 fL Normal 37.0-50.0 [facility] Comment on above: Performed By: #### C BC, CMP #### [facility] [address] [place], [place] [id number] WBC (Bld) [#/Vol] 9.0 10*3/uL Normal 3.8-11.0 [facility] Comment on above: Performed By: #### C BC, CMP #### [facility] [address] [place], [place] [id number] Comprehensive Metabolic Pane cedric 02-15-2022 Albumin [Mass/Vol] 3.9 g/dL Normal 3.6-5.1 [facility] Comment on above: Performed By: #### C BC, CMP #### [facility] [address] [place], [place] [id number] Albumin/Globulin [Mass ratio] 1.3 {ratio} Normal 1.0-2.5 [facility] Comment on above: Performed By: #### C BC, CMP #### [facility] [address] [place], [place] [id number] ALP [Catalytic activity/Vol] 141 U/L High 35-119 [facility] Comment on above: Performed By: #### C BC, CMP #### [facility] [address] [facility] [place] [id number] ALT [Catalytic activity/Vol] 11 U/L Normal 6-33 [facility] Comment on above: Result Comment: 08/23 Female reference range changed. Performed By: #### C BC, CMP #### [facility] [address] [place] [id number] Anion gap [Moles/Vol] 19 mmol/L Normal 12-20 [facility] Comment on above: Result Comment: Effe ctive 09/28/2019 reference range changed. Performed By: #### C BC, CMP #### [facility] [address] [facility] [place] [id number] AST [Catalytic activity/Vol] 12 U/L Normal 9-34 [facility] Comment on above: Performed By: #### C BC, CMP #### [facility] [address] [facility] [place] [id number] Bilirubin [Mass/Vol] 0.32 mg/dL Normal 0.30-1.20 [facility] Comment on above: Performed By: #### C BC, CMP #### [facility] [address] [facility] [place] [id number] BUN/CREA 23 Ratio High 6-22 [facility] Comment on above: Performed By: #### C BC, CMP #### [facility] [address] [place], [place] [id number] Calcium [Mass/Vol] 9.9 mg/dL Normal 8.6-10.2 [facility] Comment on above: Performed By: #### C BC, CMP #### [facility] [address] [place], [place] [id number] Chloride [Moles/Vol] 95 mmol/L Low 98-107 [facility] Comment on above: Performed By: #### C BC, CMP #### [facility] [address] [place], [place] [id number] CO2 [Moles/Vol] 21 mmol/L Normal 20-31 [facility] Comment on above: Performed By: #### C BC, CMP #### [facility] [address] [place], [place] [id number] Creatinine [Mass/Vol] 1.3 mg/dL Normal 0.6-1.4 [facility] Comment on above: Performed By: #### C BC, CMP #### [facility] [address] [place], [place] [id number] eGFRAA 51 mL/min/1.73m2 Low >60 [facility] Specialist Comment on above: Performed By: #### C BC, CMP #### [facility] [address] [place], [place] [id number] eGFRNAA 42 mL/min/1.73m2 Low >60 [facility] Specialist Comment on above: Performed By: #### C BC, CMP #### [facility] [address] [place], [place] [id number] Globulin (S) [Mass/Vol] 3.0 g/dL Normal 1.9-3.7 [facility] Special[facility] Comment on above: Performed By: #### C BC, CMP #### [facility] [address] [place], [place] [id number] Glucose [Mass/Vol] 366 mg/dL High 65-99 [facility] Specialist Comment on above: Result Comment: For FASTING Glucose --- ADA reference ranges: Normal 65-99 mg/dl Prediabetes 100-125 Diabetes >/= 126 Performed By: #### C BC, CMP #### [facility] [address] [place], [place] [id number] Potassium [Moles/Vol] 4.7 mmol/L Normal 3.5-5.5 [facility] Comment on above: Performed By: #### C BC, CMP #### [facility] [address] [place], [place] [id number] Protein [Mass/Vol] 6.9 g/dL Normal 6.1-8.1 [facility] Comment on above: Performed By: #### C BC, CMP #### [facility] [address] [place], [place] [id number] Sodium [Moles/Vol] 131 mmol/L Low 135-146 [facility] Specialist Comment on above: Performed By: #### C BC, CMP #### [facility] [address] [place], [place] [id number] Urea nitrogen [Mass/Vol] 30 mg/dL High 7-25 [facility] Specialist Comment on above: Performed By: #### C BC, CMP #### [facility] [address] [place], [place] [id number] CBC AUTO DIFFon 02-01-2022 BASO # 0.0 103/ul Normal 0.0-0.[address] [facility] Comment on above: Performed By: #### C BC ####[facility] [address] [place] [address]Dr. Antonella Medrano Basophils/100 WBC (Bld) 0.3 % Normal 0.2-2.[address] [facility] Comment on above: Performed By: #### C BC ####[facility] [facility] [address] [place] [address]Dr. Antonella Medrano EO # 0.2 103/ul Normal 0.0-0.7 [facility] Comment on above: Performed By: #### C BC ####[facility] [address]jeqf[address] [place] [address]Dr. Antonella Medrano Eosinophils/100 WBC (Bld) 1.9 % Normal 0.9-7.0 [facility] Comment on above: Performed By: #### C BC ####[facility] [address]svqiy[address] [place] [address]Dr. Antonella Medrano Erythrocyte distribution width (RBC) [Ratio] 12.6 % Normal 11.0-15.0 [facility] Comment on above: Performed By: #### C BC ####[facility] [address]qir[address] [place], [place] [address]Dr. Antonella Medrano Hematocrit (Bld) [Volume fraction] 49.6 % Critically high 36.0-48.[address] [facility] Comment on above: Performed By: #### C BC ####[facility] [address] [place] [id number]. Antonella Medrano Hemoglobin (Bld) [Mass/Vol] 16.6 g/dL Critically high 12.0-16.[address] [facility] Comment on above: Performed By: #### C BC ####[facility] Qtgfqanuvp45[address] [place] [id number]. Antonella Medrano IG # 0.04 10e3/ul Critically high 0.00-0.[address] [facility] Comment on above: Performed By: #### C BC ####[facility] [address] [place] [address]Dr. Antonella Medrano IG % 0.4 % Normal 0.0-0.[address] [facility] Comment on above: Performed By: #### C BC ####[facility] [address] [place], [place] [address]Dr. Antonella Medrano LYMPH # 2.4 103/ul Normal 1.2-3.8 [facility] Comment on above: Performed By: #### C BC ####[facility] E[address]ksjvjbvm[address] [place] [address]Dr. Antonella Medrano Lymphocytes/100 WBC (Bld) 25.9 % Normal 20.5-60.[address] [facility] Comment on above: Performed By: #### C BC ####[facility] [address]zsccr[address] [place] [address]Dr. Antonella Medrano MANUAL DIFF REQ NO Normal [facility] Comment on above: Performed By: #### C BC ####[facility] [address] [place], [place] [id number]. Antonella Medrano MCH (RBC) [Entitic mass] 28.7 pg Normal 26.7-34.0 [facility] Comment on above: Performed By: #### C BC ####[facility] [address] [place], [place] [id number]. Antonella Medrano MCHC (RBC) [Mass/Vol] 33.5 g/dL Normal 29.9-35.2 [facility] Comment on above: Performed By: #### C BC ####[facility] [address]emhwbyc[address] [place] [phone]. Antonella Medrano MCV (RBC) [Entitic vol] 85.8 fL Normal 81.0-99.0 [facility] Comment on above: Performed By: #### C BC ####[facility] [address]es[address]jb[address] [place] [phone]. Antonella Medrano MONO # 0.7 103/ul Normal 0.3-0.8 [facility] Comment on above: Performed By: #### C BC ####[facility] [address]qoonqt[address] [place], [place] [address]Dr. Antonella Medrano Monocytes/100 WBC (Bld) 7.9 % Normal 1.7-12.0 [facility] Comment on above: Performed By: #### C BC ####[facility] Jxhoepkkbl[address] [place], [place] [address]Dr. Antonella Medrano NEUT # 5.8 103/ul Normal 1.4-6.5 [facility] Comment on above: Performed By: #### C BC ####[facility] [address]hcyl[address] [place], [place] [address]Dr. Antonella Medrano Neutrophils/100 WBC (Bld) 63.6 % Normal 43.0-75.0 [facility] Comment on above: Performed By: #### C BC ####[facility] [address]fzqtrxu[address] [place], [place] [address]Dr. Antonella Medrano Platelet mean volume (Bld) [Entitic vol] 12.3 fL Normal 9.5-13.5 [facility] Comment on above: Performed By: #### C BC ####[facility] Iephqzaysn[address] [place], [place] [address]Dr. Antonella Medraon PLT 212 103/ul Normal 150-450 [facility] Comment on above: Performed By: #### C BC ####[facility] [address]mfxs[address] [place], [place] [address]Dr. Antonella Mitchell RBC 5.78 106/ul Critically high 4.20-5.40 [facility] Comment on above: Performed By: #### C BC ####[facility] [address]ismrzt[address] [place] [address]Dr. Antonella Medrano WBC 9.1 103/ul Normal 4.0-11.0 [facility] Comment on above: Performed By: #### C BC ####[facility] [address]igqzoax[address] [place] [address]Dr. Antonella Medrano CULTURE URINEon 02-01-2022 CULTURE URINE Culture Observations : LIGHT GROWTH OF MIXED SKIN LUCY. NO POTENTIAL PATHOGENS SEEN. Normal [facility] Comment on above: Performed By: #### U RCX ####[facility] [address]te[address] [place] [address]Dr. Mariafilemon Medrano ER URINE PROFILEon Bilirubin Ql (U) Negative Normal NEGATIVE [facility] Comment on above: Performed By: #### HALEY CLARK ####[facility] Imqafzrvce[address] [place], [place] [address]Dr. Antonella Medrano Clarity (U) CLEAR Normal CLEAR [facility] Comment on above: Performed By: #### HALEY CLARK ####[facility] L[address]htdsylra[address] [place], [place] [address]Dr. Mariafilemon Mitchell Color (U) LT. YELLOW Normal YELLOW [facility] Comment on above: Performed By: #### HALEY CLARK ####[facility] [address]xteuvvl[address] [place], [place] [address]Dr. Antonella Medrano ERUAHD A micrscopic examina tion will be performed if indicated. Normal [facility] Comment on above: Performed By: #### HALEY CLARK ####[facility] Rwhvmcfegq[address] [place], [place] [address]Dr. Antonella Medrano Glucose Ql (U) 1000 mg/dl Abnormal NEGATIVE [facility] Comment on above: Performed By: #### HALEY CLARK ####[facility] Dphssfztjk[address] [place], [place] [address]Dr. Antonella Medrano Hemoglobin Ql (U) SMALL Abnormal NEGATIVE [facility] Comment on above: Performed By: #### HALEY CLARK ####[facility] Vprnklxpme[address] [place] [address]Dr. Antonella Medrano Ketones Ql (U) Negative Normal NEGATIVE [facility] Comment on above: Performed By: #### HALEY CLARK ####[facility] Cobpbmncfi[address] [place] [address]Dr. Antonella Medrano LEUKOCYTES TRACE Abnormal NEGATIVE [facility] Comment on above: Performed By: #### HALEY CLARK ####[facility] Tlrneerlua[address] [place], [place] [address]Dr. Antonella Medrano Nitrite Ql (U) Negative Normal NEGATIVE [facility] Comment on above: Performed By: #### HALEY CLARK ####[facility] Jblatavmbu[address] [place], [place] [address]Dr. Antonella Medrano pH (U) 5.5 [pH] Normal 5-9 [facility] Comment on above: Performed By: #### HALEY CLARK ####[facility] Fpdwsbvevy[address] [place], [place] [address]Dr. Antonella Medrano Protein (U) [Mass/Vol] 30 mg/dL Abnormal NEGAT LAZ/ TRACE [facility] Comment on above: Performed By: #### HALEY CLARK ####[facility] Qvuspomenw[address] [place], [place] [address]Dr. Antonella Medrano SPEC GRAVITY 1.015 Normal 1.005-<=1.0 25 [facility] Comment on above: Performed By: #### HALEY CLARK ####[facility] Dbuaubdayx[address] [place], [place] [address]Dr. Antonella Medrano UR MICRO IND INDICATED Normal [facility] Comment on above: Performed By: #### HALEY CLARK ####[facility] Xejnnuaeoe[address] [place], [place] [address]Dr. Antonella Medrano Urobilinogen Qn (U) 0.2 {Oleg'U}/dL Normal 0.2 - 1. 0 [facility] Comment on above: Performed By: #### HALEY CLARK ####[facility] Yfbmjhvrne[address] [place] [address]Dr. Antonella Medrano POINT OF CARE GLUCOSEon 01-21 Glucose [Mass/Vol] 285 mg/dL Critically high 74-106 [facility] Comment on above: Performed By: #### P OCGLUC ####[facility] Ldhucujydp[address] [place] [address]Dr. Antonella Medrano Glucose [Mass/Vol] 352 mg/dL Critically high 74-106 [facility] Comment on above: Performed By: #### P OCGLUC ####[facility] Sssfvdwshr28[address] [place] [address]Dr. Antonella Medrano Glucose [Mass/Vol] 503 mg/dL Critically high 74-106 [facility] Comment on above: Result Comment: Resu lt Not Confirmed Performed By: #### P OCGLUC ####[facility] Zpzwfaqymy[address] [place] [address]Dr. Antonella Medrano PROF 14(COMP METB)on 022 Albumin [Mass/Vol] 3.2 g/dL Critically low 3.4-5.0 [facility] Comment on above: Performed By: #### C MP ####[facility] [address]qe[address]at[address] [place], [place] [address]Dr. Antonella Medrano Albumin/Globulin [Mass ratio] 0.7 {ratio} Normal [facility] Comment on above: Performed By: #### C MP ####[facility] [address]qhecms[address] [place] [address]Dr. Antonella Medrano ALP [Catalytic activity/Vol] 128 U/L Critically high 46-[address] [facility] Comment on above: Performed By: #### C MP ####[facility] Hgffrkkvvu86[address] [place] [address]Dr. Antonella Medrano ALT [Catalytic activity/Vol] 16 U/L Normal 14-[address] [facility] Comment on above: Performed By: #### C MP ####[facility] Qmycnxbovm7963 [place] [address]Dr. Antonella Medrano Anion gap [Moles/Vol] 14.3 mmol/L Normal [facility] Comment on above: Performed By: #### C MP ####[facility] Jqaxatkdqq6[address] [place] [address]Dr. Antonella Medrano AST [Catalytic activity/Vol] 20 U/L Normal 15-37 [facility] Comment on above: Performed By: #### C MP ####[facility] Efdimeszmj2643 [place] [id number]. Antonella Medrano Bilirubin [Mass/Vol] 0.6 mg/dL Normal 0.2-1.0 [facility] Comment on above: Performed By: #### C MP ####[facility] [address]vlnrrppci[address] [place], [place] [address]Dr. Antonella Medrano Calcium [Mass/Vol] 9.9 mg/dL Normal 8.5-10.1 [facility] Comment on above: Performed By: #### C MP ####[facility] Asvxaphsih[address] [place], [place] [address]Dr. Antonella Medrano Chloride [Moles/Vol] 94 mmol/L Critically low 98-107 [facility] Comment on above: Performed By: #### C MP ####[facility] Cjwjsxgtcc[address] [place], [place] [address]Dr. Antonella Medrano CO2 [Moles/Vol] 25.7 mmol/L Normal 21.0-32.0 [facility] Comment on above: Performed By: #### C MP ####[facility] Ffuycmdemq[address] [place], [place] [address]Dr. Antonella Medrano Creatinine [Mass/Vol] 1.00 mg/dL Normal 0.55-1.02 [facility] Comment on above: Performed By: #### C MP ####[facility] [address]ugn[address] [place] [address]Dr. Antonella Medrano EGFR-AF MALDIVIAN >60 Normal >=60 [facility] Comment on above: Performed By: #### C MP ####[facility] Bzurcophgu[address] [place] [address]Dr. Antonella Medrano EGFR-NON AF MALDIVIAN 56 mL/min/1.73m2 Critically low >=60 [facility] Comment on above: Performed By: #### C MP ####[facility] Oxkyyrjqvi[address] [place] [id number]. Antonella Medrano Globulin (S) [Mass/Vol] 4.4 g/dL Normal [facility] Comment on above: Performed By: #### C MP ####[facility] Bbubbcfbey[address] [place] [id number]. Antonella Medrano Glucose [Mass/Vol] 452 mg/dL Critically high 74-106 [facility] Comment on above: Performed By: #### C MP ####[facility] Wpndhtqslm1735 [place] [id number]. Antonella Medrano Potassium [Moles/Vol] 5.0 mmol/L Normal 3.5-5.[address] [facility] Comment on above: Performed By: #### C MP ####[facility] Migwniuaag78[address] [place] [address]Dr. Antonella Medrano Protein [Mass/Vol] 7.6 g/dL Normal 6.4-8.[address] [facility] Comment on above: Performed By: #### C MP ####[facility] Lyhjbvdyxl0746 [place] [phone]. Antonella Medrano Sodium [Moles/Vol] 129 mmol/L Critically low 136-145 [facility] Comment on above: Performed By: #### C MP ####[facility] Vgnimxkklu14[address] [place] [address]Dr. Antonella Medrano Urea nitrogen [Mass/Vol] 45.0 mg/dL Critically high 7.0-18.[address] [facility] Comment on above: Performed By: #### C MP ####[facility] Vydwaqvydh[address] [place] [phone]. Antonella Medrano Urea nitrogen/Creatinine [Mass ratio] 45.0 mg/mg Normal [facility] Comment on above: Performed By: #### C MP ####[facility] Xzhktxbdjo9066 [place] [phone]. Antonella Medrano URINE MICROSCOPIC ONLYon BACTERIA SMALL Abnormal NONE SEEN [facility] Comment on above: Performed By: #### E HALEY LEE ####[facility] J[address]vxwcwie[address] [place] [address]Dr. Antonella Medrano Bacteria identified Cx Nom (U) INDICATED Normal [facility] Comment on above: Performed By: #### LATA CLARKRO ####[facility] Nq[address]dsaihj[address] [place] [address]Dr. Antonella Medrano CAST NONE SEEN Normal NONE SEEN [facility] Comment on above: Performed By: #### LATA CLARKRO ####[facility] Ajchkjqevu[address] [place] [address]Dr. Antonella Medrano Crystals LM Nom (Urine sed) NONE SEEN Normal NONE SEEN [facility] Comment on above: Performed By: #### LATA CLARKRO ####[facility] Xsriqetliv[address] [place] [address]Dr. Antonella Medrano Epithelial cells LM Ql (Urine sed) FEW Abnormal NONE SEEN /RARE [facility] Comment on above: Performed By: #### LATA CLARKRO ####[facility] Dlgfubgeda[address] [place] [address]Dr. Antonella Medrano MUCOUS NONE SEEN Normal NONE SEEN [facility] Comment on above: Performed By: #### LATA CLARKRO ####[facility] Vns[address]wegroh[address] [place] [address]Dr. Antonella Medrano RBC 2-5 Abnormal 0-2 [facility] Comment on above: Performed By: #### LATA CLARKRO ####[facility] [address]fyqvssr[address] [place] [address]Dr. Antonella Medrano WBC 10-20 Abnormal NONE SEEN [facility] Comment on above: Performed By: #### LATA CLARKRO ####[facility] Xoaquwzuey[address] [place] [address]Dr. Antonella Medrano Amylaseon 01-30-2022 ANGY 62 U/L Normal 28-100 [facility] Comment on above: Performed By: #### A MY, LIP #### [facility] [address] [place], [place] [id number] Complete Blood Counton 01-30 Erythrocyte distribution width (RBC) [Ratio] 12.5 % Normal 11.0-15.0 [facility] Comment on above: Performed By: #### C GEORGINA, CMP #### [facility] [address] [place], [place] [id number] Hematocrit (Bld) [Volume fraction] 51.5 % High 35.0-47.0 [facility] Comment on above: Performed By: #### C GEORGINA, CMP #### [facility] [address] [place], [place] [id number] Hemoglobin (Bld) [Mass/Vol] 17.4 g/dL High 11.6-15.5 [facility] Comment on above: Performed By: #### C GEORGINA, CMP #### [facility] [address] [place], [place] [id number] MCH (RBC) [Entitic mass] 29.0 pg Normal 27.0-33.0 [facility] Comment on above: Performed By: #### C GEORGINA, CMP #### [facility] [address] [place], [place] [id number] MCHC (RBC) [Mass/Vol] 33.8 g/dL Normal 32.0-36.0 [facility] Comment on above: Performed By: #### Francis ERICKSON, CMP #### [facility] [address] [place], [place] [id number] MCV (RBC) [Entitic vol] 86 fL Normal 80-100 [facility] Comment on above: Performed By: #### Francis ERICKSON, CMP #### [facility] [address] [place], [place] [id number] Platelet mean volume (Bld) [Entitic vol] 12.50 fL Normal 7.50-12.50 [facility] Comment on above: Performed By: #### Francis ERICKSON, CMP #### [facility] [address] [place], [place] [id number] Platelets (Bld) [#/Vol] 227 10*3/uL Normal 140-400 [facility] Comment on above: Performed By: #### Francis ERICKSON, CMP #### [facility] [address] [place], [place] [id number] RBC (Bld) [#/Vol] 6.00 10*6/uL High 3.90-5.20 [facility] Comment on above: Performed By: #### C BC, CMP #### [facility] [address] [place], [place] [id number] RDW-SD 39.0 fL Normal 37.0-50.0 [facility] Comment on above: Performed By: #### C BC, CMP #### [facility] [address] [place], [place] [id number] WBC (Bld) [#/Vol] 9.0 10*3/uL Normal 3.8-11.0 [facility] Comment on above: Performed By: #### C BC, CMP #### [facility] [address] [place], [place] [id number] [facility] 01-30-2022 Albumin [Mass/Vol] 4.3 g/dL Normal 3.6-5.1 [facility] Comment on above: Performed By: #### C BC, CMP #### [facility] [address] [place], [place] [id number] Albumin/Globulin [Mass ratio] 1.5 {ratio} Normal 1.0-2.5 [facility] Comment on above: Performed By: #### C BC, CMP #### [facility] [address] [place], [place] [id number] ALP [Catalytic activity/Vol] 148 U/L High 35-119 [facility] Comment on above: Performed By: #### C BC, CMP #### [facility] [address] [place], [place] [id number] ALT [Catalytic activity/Vol] 7 U/L Normal 6-33 [facility] Comment on above: Result Comment: 08/23 Female reference range changed. Performed By: #### C BC, CMP #### [facility] [address] [place], [place] [id number] Anion gap [Moles/Vol] 23 mmol/L High 12-20 [facility] Specialist Comment on above: Result Comment: Effe ctive 09/28/2019 reference range changed. Performed By: #### C BC, CMP #### [facility] [address] [place], [place] [id number] AST [Catalytic activity/Vol] 11 U/L Normal 9-34 [facility] Comment on above: Performed By: #### C BC, CMP #### [facility] [address] [place], [place] [id number] Bilirubin [Mass/Vol] 0.36 mg/dL Normal 0.30-1.20 [facility] Comment on above: Performed By: #### C BC, CMP #### [facility] [address] [place], [place] [id number] BUN/CREA 40 Ratio High 6-22 [facility] Comment on above: Performed By: #### C BC, CMP #### [facility] [address] [place], [place] [id number] Calcium [Mass/Vol] 10.0 mg/dL Normal 8.6-10.2 [facility] Comment on above: Performed By: #### C BC, CMP #### [facility] [address] [place], [place] [id number] Chloride [Moles/Vol] 92 mmol/L Low 98-107 [facility] Comment on above: Performed By: #### C BC, CMP #### [facility] [address] [place], [place] [id number] CO2 [Moles/Vol] 21 mmol/L Normal 20-31 [facility] Comment on above: Performed By: #### C BC, CMP #### [facility] [address] [place], [place] [id number] Creatinine [Mass/Vol] 0.9 mg/dL Normal 0.6-1.4 [facility] Comment on above: Performed By: #### C BC, CMP #### [facility] [address] [place], [place] [id number] eGFRAA 73 mL/min/1.73m2 Normal >60 [facility] Comment on above: Performed By: #### C BC, CMP #### [facility] [address] [place], [place] [id number] eGFRNAA 61 mL/min/1.73m2 Normal >60 [facility] Comment on above: Performed By: #### C BC, CMP #### [facility] [address] [place], [place] [id number] Globulin (S) [Mass/Vol] 2.9 g/dL Normal 1.9-3.7 [facility] Comment on above: Performed By: #### C BC, CMP #### [facility] [address] [place], [place] [id number] Glucose [Mass/Vol] 531 mg/dL Critically high 65-99 [facility] on above: Result Comment: Crit ical result called to Abby Green at 01/30/2022 2:03 PM by Nicci Dailey (GLU) For FASTING Glucose --- ADA reference ranges: Normal 65-99 mg/dl Prediabetes 100-125 Diabetes >/= 126 Performed By: #### C BC, CMP #### [facility] [address] [place], [place] [id number] Potassium [Moles/Vol] 5.6 mmol/L High 3.5-5.5 [facility] Comment on above: Result Comment: Spec imen is hemolyzed. Results may be affected. Performed By: #### C BC, CMP #### [facility] [address] [place], [place] [id number] Protein [Mass/Vol] 7.2 g/dL Normal 6.1-8.1 [facility] Specialist Comment on above: Performed By: #### C BC, CMP #### [facility] [address] [place], [place] [id number] Sodium [Moles/Vol] 130 mmol/L Low 135-146 [facility] Clinician Comment on above: Performed By: #### C BC, CMP #### [facility] [address] [place], [place] [id number] Urea nitrogen [Mass/Vol] 37 mg/dL High 7-25 [facility] Specialist Comment on above: Performed By: #### C BC, CMP #### [facility] [address] [place], [place] [id number] Hemoglobin A1Con 01-30-2022 EAG 274.74 Normal [facility] Specialist Comment on above: Performed By: #### A 1C #### [facility] [address], [place] [id number] HbA1c (Bld) [Mass fraction] 11.2 % High 4.0-6.0 [facility] Clin[facility] Comment on above: Performed By: #### A 1C #### [facility] [address] [place], [place] [id number] Lipaseon 01-30-2022 LIP2 147 IU/L High 13-60 [facility] Clin[facility] Comment on above: Performed By: #### A MY, LIP #### [facility] [address] [place], [place] [id number] Q - URINALYSIS,COMPLETEon Appearance (U) CLOUDY Abnormal CLEAR [facility] Clin[facility] Comment on above: Order Comment: [facility] performed at: [facility] [employer] [facility], [address] , [address] [place] [address], [address] [place] [address], Certified Residential Medication Aide: Aung Boateng MD [facility] Date/Time: [facility] Results Received Date/Time: [facility] Reported Date/Time: Performed By: #### 3 4F #### [facility] Default [address] [place] [address] BACTERIA NONE SEEN Normal NONE SEEN [facility] Clin[facility] Comment on above: Order Comment: [facility] performed at: [facility] [employer] [facility], [address] , [address] [place] [address], [address] [place] [address], Certified Residential Medication Aide: Aung Boateng MD [facility] Date/Time: [facility] Results Received Date/Time: [facility] Reported Date/Time: Performed By: #### 3 4F #### [facility] Default [address] [place] [address] Bilirubin Ql (U) Negative Normal NEGATIVE [facility] Clinician Comment on above: Order Comment: [facility] performed at: [facility] [employer] [facility], [address], [address] [place] [address], [id number], Certified Residential Medication Aide: Aung Boateng MD [facility] Date/Time: [facility] Results Received Date/Time: [facility] Reported Date/Time: Performed By: #### 3 4F #### [facility] Default [address] [place] [address] Color (U) YELLOW Normal YELLOW [facility] Cardio Clinician Comment on above: Order Comment: [facility] performed at: [facility] [employer] [facility], [address] [place] [address], [address] [place] [address], [address] [place] [address], Certified Residential Medication Aide: Aung Boateng MD [facility] Date/Time: [facility] Results Received Date/Time: [facility] Reported Date/Time: Performed By: #### 3 4F #### [facility] Default [address] [place] [address] Glucose Ql (U) 3+ Abnormal NEGATIVE [facility] Specialist Comment on above: Order Comment: [facility] performed at: [facility] [employer] [facility], [address] [place] [address], [address] [place] [address], [address] [place] [address], Certified Residential Medication Aide: Aung Boateng MD [facility] Date/Time: [facility] Results Received Date/Time: [facility] Reported Date/Time: Performed By: #### 3 4F #### [facility] Default [address] [place], [place] [address] HYALINE CAST NONE SEEN Normal NONE SEEN [facility] Cardio Clinician Comment on above: Order Comment: [facility] Testing performed at: [facility], [facility], [address] [place] [address], [address] [place] [address], [address] [place] [address], Certified Residential Medication Aide: Aung Boateng MD [facility] Collection Date/Time: [facility] Results Received Date/Time: [facility] Reported Date/Time: Performed By: #### 3 4F #### [facility] Default [address] [place] [address] Ketones Ql (U) TRACE Abnormal NEGATIVE [facility] Cardio Clinician Comment on above: Order Comment: [facility] Testing performed at: [facility], [address] [place] [address], [address] [place] [address], [address] [place] [address], Certified Residential Medication Aide: Aung Boateng MD [facility] Collection Date/Time: [facility] Results Received Date/Time: [facility] Reported Date/Time: Performed By: #### 3 4F #### [facility] Default [address] [place] [address] Leukocyte esterase Test strip Ql (U) 1+ Abnormal NEGATIVE [facility] Specialist Comment on above: Order Comment: [facility] Testing performed at: [facility], [facility], [address] , [address] [place] [address], [address] [place] [address], Certified Residential Medication Aide: Aung Boateng MD [facility] Collection Date/Time: [facility] Results Received Date/Time: [facility] Reported Date/Time: Performed By: #### 3 4F #### [facility] Default [address] [place] [address] Nitrite Ql (U) Negative Normal NEGATIVE [facility] Specialist Comment on above: Order Comment: [facility] Testing performed at: [facility], [facility], [address] [facility], [address] [place] [address], [address] [place] [address], Certified Residential Medication Aide: Aung Boateng MD [facility] Collection Date/Time: [facility] Results Received Date/Time: [facility] Reported Date/Time: Performed By: #### 3 4F #### [facility] Default [address] [place] [address] OCCULT BLOOD 1+ Abnormal NEGATIVE [facility] Specialist Comment on above: Order Comment: [facility] Testing performed at: [facility], [facility], [address] [facility], [address] [place] [address], [address] [place] [address], Certified Residential Medication Aide: Aung Boateng MD [facility] Collection Date/Time: [facility] Results Received Date/Time: [facility] Reported Date/Time: Performed By: #### 3 4F #### [facility] Default [address] [place] [address] pH (U) 5.5 [pH] Normal 5.0-8.0 [facility] Cardio Clinician Comment on above: Order Comment: [facility] Testing performed at: [facility], [facility], [address] [place] [address], [address] [place] [address], [address] [place] [address], Certified Residential Medication Aide: Aung Boateng MD [facility] Collection Date/Time: [facility] Results Received Date/Time: [facility] Reported Date/Time: Performed By: #### 3 4F #### [facility] Default [address] [place] [address] Protein Ql (U) 2+ Abnormal NEGATIVE [facility] Cardio Clinician Comment on above: Order Comment: [facility] Testing performed at: [facility], [facility], [address] [place] [address], [address] [place] [address], [address] [place] [address], Certified Residential Medication Aide: Aung Boateng MD [facility] Collection Date/Time: [facility] Results Received Date/Time: [facility] Reported Date/Time: Performed By: #### 3 4F #### [facility] Default [address] [place] [address] RBC 0-2 Normal < OR = 2 [facility] Cardio Clinician Comment on above: Order Comment: [facility] Testing performed at: [facility], [facility], [address] [place] [address], [address] [place] [address], [address] [place] [address], Certified Residential Medication Aide: Aung Boateng MD [facility] Collection Date/Time: [facility] Results Received Date/Time: [facility] Reported Date/Time: Performed By: #### 3 4F #### [facility] Default [address] [place] [address] Specific gravity (U) [Rel density] 1.033 Normal 1.001-1.035 [facility] Cardio Clinician Comment on above: Order Comment: [facility] Testing performed at: [facility], [facility], [address] [place] [address], [address] [place] [address], [address] [place] [address], Certified Residential Medication Aide: Aung Boateng MD [facility] Collection Date/Time: [facility] Results Received Date/Time: [facility] Reported Date/Time: Performed By: #### 3 4F #### [facility] Default [address] [place] [address] SQUAMOUS EPITHELIAL CELLS NONE SEEN Normal < OR = 5 [facility] Cardio Clinician Comment on above: Order Comment: [facility] Testing performed at: [facility], [facility], [address] , [address] [place] [address], [address] [place] [address], Certified Residential Medication Aide: Aung Boateng MD [facility] Collection Date/Time: [facility] Results Received Date/Time: [facility] Reported Date/Time: Performed By: #### 3 4F #### [facility] Default [address] [place] [address] TRANSITIONAL EPITHELIAL CELLS 0-5 Normal < OR = 5 [facility] Cardio Clinician Comment on above: Order Comment: [facility] performed at: [facility], [address] , [address] [place] [address], [address] [place] [address], Certified Residential Medication Aide: Aung Boateng MD [facility] Collection Date/Time: [facility] Results Received Date/Time: [facility] Reported Date/Time: Performed By: #### 3 4F #### [facility] Default [address] [place] [address] WBC 10-20 Abnormal < OR = 5 [facility] Cardio Clinician Comment on above: Order Comment: [facility] Testing performed at: [facility], [facility], [address] , [address] [place] [address], [address] [place] [address], Certified Residential Medication Aide: Aung Boateng MD [facility] Collection Date/Time: [facility] Results Received Date/Time: [facility] Reported Date/Time: Performed By: #### 3 4F #### [facility] Default [address] [place] [address] YEAST MANY Abnormal NONE SEEN [facility] Cardio Clinician Comment on above: Order Comment: [facility] Testing performed at: [facility], [address], [address] [facility], [place], [address], Certified Residential Medication Aide: Aung Boateng MD [facility] Collection Date/Time: [id number] [facility] Results Received Date/Time: [id number] [facility] Reported Date/Time: [id number] Performed By: #### 3 4F #### [facility] Default [address] [place] [address] CONSULTATIONon 04-09-[address] [facility] ATIENT NAME: KIARA BLANC : 56[facility] REC NO: [id number] ROOM: 0316ACCOUNT NO: [id number] ADMISSION DATE: 03/25/17PHYSICIAN: KAREN ROQUEHISTORY: The patient [...] office in two weeks.KAREN ROQUED:04/09/2017 21:50:05 PH/Aliza_MIKE_TJob#: [id number] Doc#: [id number] [facility] Discharge Summaryon 03-27-20 17 HIM IP Note OR Court Clerk [facility] HIM IP Note OR Court Clerk [facility] Discharge Summaryon 03-26-20 17 HIM IP Note OR Court Clerk [facility] History and Physicalon 03-26 HIM IP Note OR [address] Clerk Normal [facility] APTTon 03-25-2017 aPTT 22.4 s Low 23.2-34.4 [facility] Comment on above: Result Comment: Perf ormed at [address] [place] [address] Performed By: #### P T, PTT ####[address] [place] [address] CBC with Diffon 03-25-2017 Abs. Bands 0.10 k/uL Normal 0.0-1.0 [facility] Comment on above: Performed By: #### C P, CDP ####[address] [place] [address] Abs. Basophil 0.00 k/uL Normal 0.0-0.2 [facility] Comment on above: Performed By: #### C P, CDP ####[address] [place] [id number] Abs.Neutrophil (Seg) 7.66 k/uL Normal 1.8-7.7 [facility] Comment on above: Performed By: #### C P, CDP ####[address] [place] [address] Bands 1 % Normal [facility] Comment on above: Performed By: #### C P, CDP ####[address] [place] [address] Basophils/100 WBC Auto (Bld) 0 % Normal [facility] Comment on above: Performed By: #### C P, CDP ####[address] [place] [address] Blood morphology Normal Normal [facility] Comment on above: Result Comment: Perf ormed at [address] [place] [address] Performed By: #### C P, CDP ####[address] [place] [address] Eosinophils 0.10 10*3/uL Normal 0.0-0.4 [facility] Comment on above: Performed By: #### C P, CDP ####[address] [place] [id number] Eosinophils/100 leukocytes 1 % Normal [facility] Comment on above: Performed By: #### C P, CDP ####[address] [place] [address] Lymphocytes 1.16 10*3/uL Normal 1.0-4.8 [facility] Comment on above: Performed By: #### C P, CDP ####[address] [place] [address] Lymphocytes/100 leukocytes 12 % Normal [facility] Comment on above: Performed By: #### C P, CDP ####[address] [place] [address] Monocytes 0.68 10*3/uL Normal 0.0-1.0 [facility] Comment on above: Performed By: #### C P, CDP ####[address] [place] [id number] Monocytes/100 leukocytes 7 % Normal [facility] Comment on above: Performed By: #### C P, CDP ####[address] [place] [address] Neutrophil (Seg) 79 % Normal [facility] Comment on above: Performed By: #### C P, CDP ####[address] [place] [address] Erythrocyte distribution width Auto Ratio (RBC) 12.8 % Normal 12.1-15.2 [facility] Comment on above: Performed By: #### C P, CDP ####[address] [place] [address] Erythrocytes (RBC) 4.45 10*6/uL Normal 4.0-5.2 [facility] Comment on above: Performed By: #### C P, CDP ####[address] [place] [address] Hematocrit (HCT) 38.7 % Normal 36-46 [facility] Comment on above: Performed By: #### C P, CDP ####[address] [place] [address] Hemoglobin mass conc (Bld) 13.0 g/dL Normal 12.0-16.0 [facility] Comment on above: Performed By: #### C P, CDP ####[address] [place] [address] MCH 29.2 pg Normal 26-34 [facility] Comment on above: Performed By: #### C P, CDP ####[address] [place] [address] MCHC mass conc (RBC) 33.6 g/dL Normal 31-37 [facility] Comment on above: Performed By: #### C P, CDP ####[address] [place] [address] MCV 86.8 fL Normal 80-100 [facility] Comment on above: Performed By: #### C P, CDP ####[address] [place] [address] Platelets 239 10*3/uL Normal 140-450 [facility] Comment on above: Performed By: #### C P, CDP ####[address] [place] [address] WBC (Leukocytes) 9.7 10*3/uL Normal 3.5-11.0 [facility] Comment on above: Performed By: #### C P, CDP ####[address] [place] [address] Auto Diff Performed NOT REPORTED Normal [facility] Comment on above: Performed By: #### C P, CDP ####[address] [place] [address] Erythrocyte morphology NOT REPORTED Normal [facility] Comment on above: Performed By: #### C P, CDP ####[address] [place] [address] Platelet mean volume (PMV) NOT REPORTED Normal 6.0-12.0 [facility] Comment on above: Performed By: #### C P, CDP ####[address] [place] [address] Platelets NOT REPORTED Normal [facility] Comment on above: Performed By: #### C P, CDP ####[address] [place] [address] WBC Morphology NOT REPORTED Normal [facility] Comment on above: Performed By: #### C P, CDP ####[address] [place] [address] Comp Metabolic Profon 2016 (cont.) Normal [facility] Comment on above: Result Comment: Aver age GFR for 60-69 years old: 85 mL/min/1.73sq mChronic Kidney Disease: <60 mL/min/1.73sq mKidney failure: <15 mL/min/1.73sq meGFR calculated using average adult body mass. Additional eGFR calculator available at:http://[email or web address]/multiple_crcl_2012.htm Performed By: #### C P, CDP ####[address] [place] [address] Alanine aminotransferase (ALT) 14 U/L Normal 5-33 [facility] Comment on above: Performed By: #### C P, CDP ####[address] [place] [address] Albumin 3.4 g/dL Low 3.5-5.2 [facility] Comment on above: Performed By: #### C P, CDP ####[address] [place] [address] Albumin/Globulin Ratio 1.2 {ratio} Normal 1.0-2.5 [facility] Comment on above: Performed By: #### C P, CDP ####[address] [place] [address] Alkaline Phos 102 U/L Normal 35-104 [facility] Comment on above: Performed By: #### C P, CDP ####[address] [place] [address] Anion gap 13 mmol/L Normal 9-17 [facility] Comment on above: Performed By: #### C P, CDP ####[address] [place] [address] Aspartate aminotransferase (AST) 14 U/L Normal <32 [facility] Comment on above: Performed By: #### C P, CDP ####[address] [place] [address] Bilirubin Ql (U) 0.15 mg/dL Low 0.3-1.2 [facility] Comment on above: Performed By: #### C P, CDP ####[address] [place] [address] BUN/CRE Ratio 34 High 9-20 [facility] Comment on above: Performed By: #### C P, CDP ####[address] [place] [address] Calcium 8.3 mg/dL Low 8.6-10.4 [facility] Comment on above: Performed By: #### C P, CDP ####[address] [place] [address] Chloride 108 mmol/L High 98-107 [facility] Comment on above: Performed By: #### C P, CDP ####[address] [place] [address] CO2 18 mmol/L Low 20-31 [facility] Comment on above: Performed By: #### C P, CDP ####[address] [place] [address] Creatinine 0.64 mg/dL Normal 0.50-0.90 [facility] Comment on above: Performed By: #### C P, CDP ####[address] [place] [address] eGFR (non-black) mL/min/{1.73_m2} Normal >60 [facility] Comment on above: Performed By: #### C P, CDP ####[address] [place] [address] Glucose mass conc 368 mg/dL High 70-99 [facility] Comment on above: Performed By: #### C P, CDP ####[address] [place] [address] Potassium molar conc 4.7 mmol/L Normal 3.7-5.3 [facility] Comment on above: Performed By: #### C P, CDP ####[address] [place] [address] Protein 6.3 g/dL Low 6.4-8.3 [facility] Comment on above: Performed By: #### C P, CDP ####[address] [place] [address] Sodium 139 mmol/L Normal 135-144 [facility] Comment on above: Performed By: #### C P, CDP ####[address] [place] [address] Staging: Normal [facility] Comment on above: Result Comment: Stag e 1: Some kidney damage normal GFRStage 2: Mild kidney damage GFR 60-89Stage 3: Moderate kidney damage GFR 30-59Stage 4: Severe kidney damage GFR 15-29Stage 5: Severe kidney damage GFR <15ESRD - chronic treatment by dialysis or transplantPerformed at [address] [place] [id number] ([phone]) Performed By: #### C P, CDP ####[address] [place] [address] Urea nitrogen 22 mg/dL Normal 8-23 [facility] Comment on above: Performed By: #### C P, CDP ####[address] [place] [address] Hemoglobin A1Con 03-25-2017 Glucose mass conc 220 mg/dL Normal [facility] Comment on above: Result Comment: The ADA and AACC recommend providing the estimated average glucose result to permit better patient understanding of their HBA1c result.Performed at [address] [place] [address] Performed By: #### G LYHGB ####[address] [place] [address] Hemoglobin A1c/Hemoglobin.total mass fraction (Bld) 9.3 % High 4.8-5.9 [facility] Comment on above: Performed By: #### G LYHGB ####[address] [place] [address] PTon 03-25-2017 INR Coag RelTime (PPP) 0.9 {INR} Normal 0.9-1.2 [facility] Comment on above: Result Comment: Perf ormed at [address] [place] [id number] ([phone]) Performed By: #### P T, PTT ####[address] [place] [address] Prothrombin time (PT) Coag time (PPP) 9.7 s Normal 9.7-12.2 [facility] Comment on above: Performed By: #### P T, PTT ####[address] , [place] 2[address]383 Type + Screenon 03-25-2017 Type + Screen Sample Expiration 03/28/2017 Arm Band Number [id number] ABO/Rh(D) O POSITIVE Antibody Screen NEGATIVEPerformed at [facility] [address] [place] [address] Normal [facility] Comment on above: Performed By: #### T YS ####[address] [place] [address] XR CHEST PORTABLEon 03-25-20 17 XR CHEST PORTABLE FINAL REPORTEXAM: XR CHEST PORTABLEHISTORY: preoperative; RT HIP FX TECHNIQUE: AP portable erect chest PRIORS: None.FINDINGS: The heart and vascularity are normal. Both lungs are well-expanded and there are no pulmonary infiltrates.The osseous structures are maintained. IMPRESSION: Impression: No acute cardiopulmonary disease. Interpreted by:MAISHA Lassiterigned by:Peter Escobar MD03/25/17Final result Normal [facility] XR HIP 2-3 VW W [...] by:MAISHA Lassiterigned by:Peter Escobar MD03/25/17Final result Normal [facility] XR KNEE RIGHT STANDARDon XR [...] by:MAISHA Lassiterigned by:Peter Escobar MD03/25/17Final result Normal [facility] Vital Signs Date Time Vital Sign Value Performing Clinician Faci lity 07-18-2023 14:41-0400 Body height 165.1 cm Sonya Posada CNP Work Phone: [facility] Work Phone: 07-18-2023 14:41-0400 Body mass index (BMI) [Ratio] 31.5 kg/m2 Sonya Carlomarlen JURADO Work Phone: [facility] Work Phone: 07-18-2023 14:41-0400 Body surface area Derived from formula 1.9 m2 Sonya Carlomarlen JURADO Work Phone: [facility] Work Phone: 07-18-2023 14:41-0400 Body temperature 97.9 [degF] Sonya Carlomarlen JURADO Work Phone: [facility] Work Phone: 07-18-2023 14:41-0400 Body weight 85.73 kg Sonya Posada DECISION SUPPORT ANALYST Work Phone: [facility] Work Phone: 07-18-2023 14:41-0400 Diastolic blood pressure 60 mm[Hg] Sonyajosee Posada ADRIEN Work Phone: [facility] Work Phone: 07-18-2023 14:41-0400 Heart rate 106 /min Sonya Carlo DECISION SUPPORT ANALYST Work Phone: [facility] Work Phone: 07-18-2023 14:41-0400 Respiratory rate 16 /min Sonya Carlo DECISION SUPPORT ANALYST Work Phone: [facility] Work Phone: 07-18-2023 14:41-0400 SaO2% (BldA) [Mass fraction] 92 % Sonya Carlo DECISION SUPPORT ANALYST Work Phone: [facility] Work Phone: 07-18-2023 14:41-0400 Systolic blood pressure 108 mm[Hg] Sonya Carlo DECISION SUPPORT ANALYST Work Phone: [facility] Work Phone: 03-11-2023 13:35-0400 Body temperature 97.11 [degF] Sonya Carlo PRE K SPECIAL EDUCATION TEACHER - HEALTHCARE EDUCATOR Work Phone: [facility] [employer] 03-11-2023 13:35-0400 Diastolic blood pressure 60 mm[Hg] Sonya Carlo PRE K SPECIAL EDUCATION TEACHER - HEALTHCARE EDUCATOR Work Phone: [employer] 03-11-2023 13:35-0400 Heart rate 92 /min Sonya Carlo PRE K SPECIAL EDUCATION TEACHER - HEALTHCARE EDUCATOR Work Phone: [facility] [employer] 03-11-2023 13:35-0400 Respiratory rate 18 /min Sonya Carlo PRE K SPECIAL EDUCATION TEACHER - HEALTHCARE EDUCATOR Work Phone: [facility] [employer] 03-11-2023 13:35-0400 SaO2% (BldA) [Mass fraction] 98 % Sonya Carlo PRE K SPECIAL EDUCATION TEACHER - HEALTHCARE EDUCATOR Work Phone: [employer] 03-11-2023 13:35-0400 Systolic blood pressure 106 mm[Hg] Sonya Carlo PRE K SPECIAL EDUCATION TEACHER - HEALTHCARE EDUCATOR Work Phone: [employer] 03-07-2023 15:37-0400 Body height 165.1 cm Sonya Posada DECISION SUPPORT ANALYST Work Phone: [facility] Work Phone: 03-07-2023 15:37-0400 Body mass index (BMI) [Ratio] 33.4 kg/m2 Sonya Posada CNP Work Phone: [facility] Work Phone: 03-07-2023 15:37-0400 Body surface area Derived from formula 2 m2 Sonya Posada CNP Work Phone: [facility] Work Phone: 03-07-2023 15:37-0400 Body temperature 98.5 [degF] Sonya Posada CNP Work Phone: [facility] Work Phone: 03-07-2023 15:37-0400 Body weight 91.17 kg Sonya Posada CNP Work Phone: [facility] Work Phone: 03-07-2023 15:37-0400 Diastolic blood pressure 55 mm[Hg] Sonya Posada CNP Work Phone: [facility] Work Phone: 03-07-2023 15:37-0400 Heart rate 64 /min Sonya Posada CNP Work Phone: [facility] Work Phone: 03-07-2023 15:37-0400 SaO2% (BldA) [Mass fraction] 96 % Sonya Posada CNP Work Phone: [facility] Work Phone: 03-07-2023 15:37-0400 Systolic blood pressure 115 mm[Hg] Sonya Posada CNP Work Phone: [facility] Work Phone: Encounters Encounter Date Encounter Type Care Provider Facility Start: 11-06-2023 End: 11-06-2023 ambulatory NON STAFF Facility:[facility] Start: 11-06-2023 End: 11-06-2023 ambulatory [facility] Work Phone: Start: 11-06-2023 End: 11-06-2023 Departed Referred [facility] Start: 06-12-2023 End: 06-12-2023 ambulatory EHAB [facility] Start: 05-14-2023 End: 05-14-2023 ambulatory PHYSICIAN NO FAMILY Facility:[facility] Start: 05-14-2023 End: 05-14-2023 ambulatory DRY CLEANER HELPER-BC Angy Patel Work Phone: [facility] Work Phone: Start: 05-14-2023 End: 05-14-2023 Departed Referred DRY CLEANER HELPER-BC Angy Patel Work Phone: [facility] [place] Work Phone: Start: 05-04-2023 Evaluation and management of inpatient [facility] Start: 05-01-2023 Evaluation and management of inpatient [facility] Start: 04-26-2023 End: 05-06-2023 Evaluation and management of inpatient [facility] Start: 03-11-2023 End: 03-11-2023 Emergency department patient visit Sonya Posada PRE K SPECIAL EDUCATION TEACHER - HEALTHCARE EDUCATOR Work Phone: [facility] ED Comment on above: Acute cystitis witho ut hematuria (Primary Dx) Start: 03-07-2023 End: 03-07-2023 [facility] visit, estab pt Sobia MALDONADO Work Phone: [facility] Work Phone: Start: 03-07-2023 End: 03-07-2023 [facility] visit new patient Sonya Posada DECISION SUPPORT ANALYST Work Phone: [facility] Work Phone: Start: 03-07-2023 End: 07-18-2023 [facility] visit, estab pt Soco Alcantar DECISION SUPPORT ANALYST Work Phone: [facility] Work Phone: Start: 03-07-2023 End: 03-08-2023 ambulatory SONYA POSADA [facility] Start: 01-22-2023 ambulatory Sonya Posada CNP [facility] [facility] Start: 01-10-2023 End: 01-10-2023 [...] Evaluation and management of inpatient YRIS QUAN Facility:[facility] Start: 03-16-2022 End: 03-16-[address] PETER SANTOS Facility:[facility]1 Start: 02-23-2022 ambulatory FANY SAHU Facility:H 1 Start: 02-16-2022 End: 02-17-[address] PETER SANTOS Facility:[facility] Start: 02-01-2022 End: 02-01-[address] PETER SANTOS Facility:[facility] Start: 07-07-2019 End: 07-07-2019 Patient encounter procedure Peter Santos -CT Scan [facility] Start: 03-25-2017 End: 03-27-2017 Evaluation and management of inpatient [facility] Procedures Date Procedure Procedure Detail Performing Clinician Start: 07-18-2023 Current tobacco smoker Soco Alcantar DECISION SUPPORT ANALYST Work Phone: Start: 07-18-2023 Eye img valid match dx 7 stnd fld w/evc rtnopthy Soco Alcantar DECISION SUPPORT ANALYST Work Phone: Start: 07-18-2023 Foot examination performed Soco Alcantar DECISION SUPPORT ANALYST Work Phone: Start: 07-18-2023 Hemoglobin glycosylated a1c Soco Alcantar CNP Work Phone: Start: 07-18-2023 Most recent diastoli c blood pressure < 80 mm hg Soco Alcantar DECISION SUPPORT ANALYST Work Phone: Start: 07-18-2023 Most recent hg a1c>e qual to 8.0%& Soco Alcantar CNP Work Phone: Start: 07-18-2023 Most recent systolic blood pressure <130 mm hg Soco Alcantar DECISION SUPPORT ANALYST Work Phone: Start: 07-18-2023 Pt scrnd [...] Start: 03-07-2023 Current tobacco smoker Sonya Posada DECISION SUPPORT ANALYST Work Phone: Start: 03-07-2023 Drug test prsmv read direct optical obs pr date Sonya Posada DECISION SUPPORT ANALYST Work Phone: Start: 03-07-2023 Hysterectomy Sonya gee DECISION SUPPORT ANALYST Work Phone: Start: 03-07-2023 Knee Replacement Left C sho Posada DECISION SUPPORT ANALYST Work Phone: Start: 03-07-2023 Knee Replacement Right Sonya Posada DECISION SUPPORT ANALYST Work Phone: Start: 03-07-2023 Psychotherapy w/lasha ent 30 minutes Sobia MALDONADO Work Phone: Start: 03-07-2023 Pt scrnd tobacco use rcvd tobacco cessation talk Sonya Posada DECISION SUPPORT ANALYST Work Phone: Start: 03-07-2023 Surgical procedure Hayley Posada DECISION SUPPORT ANALYST Work Phone: Start: 03-07-2023 Urine albumin quantitative Sonya Posada DECISION SUPPORT ANALYST Work Phone: Start: 03-07-2023 Urnls dip stick/tabl et rgnt non-auto w/o micrscp Sonya Posada DECISION SUPPORT ANALYST Work Phone: Start: 07-07-2019 CT chest [...] CKD 3-4, OR last GFR 15-59) [facility] Start: 08-19-2023 [facility] visit, estab pt Medical E stablished Patient [facility] Work Phone: Start: 07-18-2023 End: 07-18-2023 Patient education based on identified need [facility] Start: 04-06-2023 Urine Culture & Sensitivity ([id number]) [facility] Start: 03-21-2023 [facility] visit, estab pt Medical E stablished Patient [facility] Work Phone: Start: 03-08-2023 Annual Wellness Visi t (AWV) Annual Wellness Visit (AWV) [facility] [employer] Start: 03-07-2023 End: 03-07-2023 Patient education based on identified need [facility] Start: 03-07-2023 CBC W Auto Different ial panel - Blood [facility] Start: 03-07-2023 Lipid 1996 panel - S elizabeth or Plasma LIPID PROFILE [facility] Start: 10-31-2021 COVID-19 Vaccine (5 - Booster for Moderna series) COVID-19 Vaccine (5 - Booster for Moderna series) [facility] Start: 03-25-2018 Hemoglobin A1c measurement A1C test (Diabetic or Prediabetic) [facility] Start: 2011 Screening for osteoporosis DEXA (modify frequency per FRAX score) [facility] Start: 2006 Screening for malign ant neoplasm of breast Breast cancer screen [facility] Start: 2006 Shingles vaccine (1 of 2) Shingles vaccine (1 of 2) [facility] Start: 2001 Screening for malign ant neoplasm of colon [facility] Start: 1975 DTaP/Tdap/Td vaccine (1 - Tdap) DTaP/Tdap/Td vaccine (1 - Tdap) [facility] [employer] Start: 1974 Glaucoma screening Diabetic retinal exam [facility] Start: 1974 Hepatitis C screening Hepatitis C sc reen [facility] Start: 1974 Urine screening for protein Diabetic Alb to Cr ratio (uACR) test [facility] Start: 1968 Depression Monitoring Depression Mon itoring [facility] Start: 1966 Diabetic foot examination Diabetic foot exam [facility] Start: 1966 Lipid panel Lipids [facility] End: 03-11-2023 Culture, Urine [facility] Work Phone: Comment on above: Once for 1 Occurrenc es starting 03/11/2023 until 03/11/2023 Immunizations Immunization Date Immunization Notes Care Provider Valeria winston 01-02-2023 pneumococcal polysaccharide vaccine, 23 valent Sonya Carlo DECISION SUPPORT ANALYST Work Phone: [facility] 09-05-2021 1st Dose MODERNA COV ID-19 Vaccine Sonya Carlo DECISION SUPPORT ANALYST Work Phone: [facility] 08-08-2021 diphtheria, tetanus toxoids and pertussis vaccine Sonya Carlo DECISION SUPPORT ANALYST Work Phone: [facility] 08-07-2021 influenza, high dose seasonal, preservative-free Sonya Carlo DECISION SUPPORT ANALYST Work Phone: [facility] 01-01-2021 1st Dose MODERNA COV ID-19 Vaccine Sonya Carlo DECISION SUPPORT ANALYST Work Phone: [facility] 12-05-2020 1st Dose MODERNA COV ID-19 Vaccine Sonya Carlo DECISION SUPPORT ANALYST Work Phone: [facility] 08-30-2020 Seasonal, quadrivale nt, recombinant, injectable influenza vaccine, preservative free Sonya Carlo DECISION SUPPORT ANALYST Work Phone: [facility] 08-28-2019 influenza, injectabl e, quadrivalent, contains preservative Sonya Carlo DECISION SUPPORT ANALYST Work Phone: [facility] 09-20-2016 influenza, seasonal, injectable, preservative free Sonya Carlo DECISION SUPPORT ANALYST Work Phone: [facility] Payers Date Payer Category Payer Self-pay [id number] 2014 Medicare [id number] 2014 Medicare [id number] 1959 Self-pay [id number] 1959 Unknown [id number] 1955 Unknown [id number] 2.16.8 [id number] 1956 Unknown [id number] 2.16.84 [id number] 1956 Unknown [id number] 2.16.84 0.1.957801.3.579.2.593 1956 Unknown [id number] 2.16.84 0.1.640123.3.579.2.593 1956 Unknown [id number] 2.16.84 0.1.734040.3.579.2.593 1956 Unknown [id number] 2.16.84 0.1.201513.3.579.2.593 1956 Unknown [id number] 2.16.84 0.1.820812.3.579.2.593 1956 Unknown [id number] 2.16.84 0.1.086447.3.579.2.593 1956 Unknown [id number] 2.16.84 0.1.396835.3.579.2.593 1956 Unknown [id number] 2.16.84 0.1.061725.3.579.2.593 1956 Unknown [id number] 2.16.84 0.1.651301.3.579.2.593 1956 Unknown [id number] 2.16.84 0.1.910854.3.579.2.593 1956 Unknown [id number] 2.16.84 0.1.082924.3.579.2.593 1956 Unknown [id number] 2.16.84 0.1.508632.3.579.2.593 1956 Unknown [id number] 2.16. [id number] Medicare Medicare [id number] Private Health Insurance [facility] [id number] Unknown [id number] 2.16.8 [id number] Unknown [id number] 2.16.8 40.1.373161.3.579.2.531 Social History Date Type Detail Facility Tobacco smoking status NHIS Unknown if ever smoked [facility] Start: 1955 Sex Assigned At Female F [facility] Assertion Lives with spous e (finding) [facility] Assertion Emotional stress (finding) [facility] Assertion Cigarette smoker (finding) [facility] Start: 09-04-2018 Assertion Smoker (finding) [facility] Assertion Exposure to poll ution (event) [facility] Tobacco smoking status Unknown if ever smoked [facility] Work Phone: Start: 03-25-2017 Tobacco smoking status NHIS Smokes tobacco daily [employer] Start: 03-25-2017 Cigarettes smoked current (pack per day) - Reported 0.5 [facility] [employer] Start: 03-11-2023 Alcohol intake Current non-dr tip mender of alcohol (finding) [employer] Start: 1955 Sex Assigned At Not on file [facility] [employer] Assertion Gender identity finding (finding) [facility] Assertion Finding of sexua l orientation (finding) [facility] Assertion Currently not se xually active (finding) [facility] NEGATED: Highlighted row Assertion Current drinker of alcohol (finding) [facility] NEGATED: Highlighted row Assertion [facility] NEGATED: Highlighted row Assertion Finding relating to drug misuse behavior (finding) [facility] Medical Equipment Procedure Code Equipment Code Equipment Origin al Text Equipment Identifier Dates ReliOn Pen Needl es 31G X 6 MM Miscellaneous [id number] Start: 06-25-2023 Goals Date Patient Goal Desired Activity /State Mental Status Date Assessment Result Facility Cognitive function The estimated intelligence was normal Intelligence finding (finding) [facility] Work Phone: Clinical Notes 03-25-2022 to 07-18-2023 Note Date & Type Note Facility 07-18-2023 Instructions Includes: Instructions for all patient encounters Discussed nutritional needs teach healthy choices including fruits and vegetables Last Documented On 3 2:45PM ; [facility] Patient education about a pr oper diet Last Documented On 3 2:45PM ; [facility] Discussed concerns about exe rcise : promote physical activity Last Documented On 3 2:45PM ; [facility] Referred Patient to a Diabet es Self-Management Program Last Documented On 3 3:12PM ; [facility] introduced patient to [facility] integrated model of care. ~[facility] provided supportive and active listening, allowing patient the space to discuss concerns and explored with patient coping strategies and resources for support. Patient declines additional resources at this time but is aware to reach out to the office should she have questions or concerns. ~[facility] encouraged patient to continue addressing physical health needs and attend appointments as scheduled Last Documented On 3 9:52PM ; [facility] Discussed nutritional needs teach healthy choices including fruits and vegetables Last Documented On 3 3:42PM ; [facility] Patient education about a pr oper diet Last Documented On 3 3:42PM ; [facility] Discussed concerns about exe rcise : promote physical activity ~ ~Get labs done and follow up in two weeks Last Documented On 3 5:15AM ; [facility] Referred Patient to a Diabet es Self-Management Program Last Documented On 3 4:08PM ; [facility] Work Phone: [phone] 253-643110-26-2023 Evaluation note Includes: Assessments for all patient encounters Findings Encounter Date [Z68.31 - Body mass index [B SC] 31.0-31.9, adult] assessment of body mass index Medical Established Patient with Soco Alcantar CNP 07/18/2023 Last Documented On 3 2:26PM ; [facility] Dependence on nicotine in ci garettes - uncomplicated Medical Established Patient with Soco Alcantar DECISION SUPPORT ANALYST 07/18/2023 Last Documented On 3 2:26PM ; [facility] Essential hypertension Medical Establish ed Patient with Soco Alcantar DECISION SUPPORT ANALYST 07/18/2023 Last Documented On 3 2:26PM ; [facility] Type 2 diabetes mellitus wit hout complication Medical Established Patient with Soco Alcantar DECISION SUPPORT ANALYST 07/18/2023 Last Documented On 3 2:26PM ; [facility] 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 Medical Established Patient with Soco Alcantar DECISION SUPPORT ANALYST 07/18/2023 Last Documented On 3 2:26PM ; [facility] Anxiety disorder NOS Established Patient with Sobia Short LISWS 03/07/2023 Last Documented On 3 9:52PM ; [facility] Dependence on nicotine in ci garettes - uncomplicated BH Established Patient with Sobia Short LISWS 03/07/2023 Last Documented On 3 9:52PM ; [facility] Mild recurrent major depression BH Estab lished Patient with Sobia Short LISWS 03/07/2023 Last Documented On 3 9:52PM ; [facility] [Body mass index [BMI] 33.0- 33.9, adult] assessment of body mass index Medical New Patient with Sonya Carlo DECISION SUPPORT ANALYST 03/07/2023 Last Documented On 3 7:51PM ; [facility] Colon screening Medical New Patient with Sonya Carlo DECISION SUPPORT ANALYST 03/07/2023 Last Documented On 3 7:51PM ; [facility] Diabetes Risk Test Score was 7.0 score 03/07/2023 Medical New Patient with Sonya Carlo DECISION SUPPORT ANALYST 03/07/2023 Last Documented On 3 7:51PM ; [facility] Screening for Hep C Medical New Patient with Ronnie sie Carlo DECISION SUPPORT ANALYST 03/07/2023 Last Documented On 3 7:51PM ; [facility] Screening for HIV Medical New Patient with Joselyn e Carlo DECISION SUPPORT ANALYST 03/07/2023 Last Documented On 3 7:51PM ; [facility] Work Phone: [phone] 727-454210-26-2023 History general Narrative - Reported Includes: Medical History in patient's chart Description Last Updated Not planning to have a baby in the next 12 months 07/18/2023 Last Documented On 3 2:26PM ; [facility] History of tooth extraction 03/07/2023 Last Documented On 3 7:51PM ; [facility] No medical history or no significant his tory 03/07/2023 Last Documented On 3 7:51PM ; [facility] No previous hospitalizations 03/07/2023 Last Documented On 3 7:51PM ; [facility] Recent immunization for flu 03/07/2023 Last Documented On 3 7:51PM ; [facility] Work Phone: 1(689) 996-403010-26-2023 Progress note* Progress note Date Encounter Last Documented by 07/18/2023 Medical Established Patient Last documented on 07/19/2023; 2:26 PM, Soco Alcantar CNP; [facility] Active Problems & Conditions - F41.9 [...] For Visit Visit for: Recent discharge from Group Home. Referred Here Not referred by urgent care [...] reports that she thinks she was a [facility]. Patient reports that she checks sugars [...] 0 days, 0 refills - ReliOn Pen Libby 31G X 6 MM Miscellaneous 31G X [...] 07/18/2023 02:41 pm BP-Sitting L108/60 mmHg Pulse Rate-Dgbekuv662 bpm Respiration Rate16 per min Temp-Cvfayeol21.9 F Uvxlko47 in Gadfjw744 lbs Body Mass Index31.5 kg/m2 Body Surface Area1.9 m2 Oxygen Ezwoexcwgn04 % Vital Signs: - Systolic blood pressure [...] mammogram ordered, will look for colonoscopy at [facility]. Patient to follow up in [...] : Not at all. Bottom of Document [facility]09[facility]20-[facility] Clinic Note Chief [...] graft surgery, who was recently admitted to [facility] (See hospital discharge summary below) Thankfully, she is more herself and recognizes me instantly She denies new cardiovascular symptoms; specifically, she denies chest pain, shortness of breath, orthopnea, paroxysmal external dyspnea or lower extremity edema. Hospital course: Kiara Blanc is an 68 y.o. female who came from [facility] for NSTEMI. Patient was admittied initailly at [facility] with known history of CAD, HLD, [...] Disp: , Rfl: meto (more content not included)...[facility]08-14-2023 NotePhysical Therapy Physical Therapy Treatment Patient Name: Kiara Blanc : 1955 Today's Date: 05/06/2023 Patient Active Problem List Diagnosis Coronary artery disease involving port gamble coronary artery of port gamble heart without angina pectoris Hyperlipidemia, mixed Edema of lower extremity Chronic diastolic heart failure (CMS/HCC) Tobacco dependence NSTEMI (non-ST elevated myocardial infarction) (CMS/HCC) Acute cystitis without hematuria Hypoglycemia Traumatic rhabdomyolysis (CMS/HCC) Acute on chronic systolic (congestive) heart failure ([facility] Time : 13:09-13:48 05/06/23 1350 PT Last Visit PT Received On 05/06/23 General Subjective Pt per nursing can be seen for P.T. services per nursing staff , upon technical writer and editor entering the room pt was sidelying in the bed with her brief half off pt was awake and technical writer and editor asked pt about getting out of bed and to go to the bathroom to check her brief. Pt willing to get up and work with therapy Cognition Overall Cognitive Status Impaired Arousal/Alertness Delayed responses to stimuli;Inconsistent responses to stimuli Orientation Level Disoriented to time;Disoriented to situation;Disoriented to place (pt looking for her dog again today technical writer and editor had to explain to pt that she is not at home and her dog is at home with her . Pt could no longer use the phone today and did not even hold it the right way up to her ear) Awareness of Errors Decreased awareness of errors Problem Solving Assistance required to implement solutions Cognition Comments pts told technical writer and editor in the past that pt has dementia. [...] light in place Plan PT Discharge Recommendations intermediate facility placement Goals: Multi-Disciplinary Problems (from Physical [...] a railing 1 Mobility 6 Clicks T-Score 15[facility]08-14-2023 Note Discharge order placed. AVS uploaded to [facility]. Transport set up with [place] at 4PM. Transport form and packet completed and left bedside the chart. Facility and floor RN aware of transport time. Phone number for report left with packet. No further OTM needs at this time.[facility] 05-06-2023 NoteHospital Medicine Discharge Summary Final Discharge Diagnosis: NSTEMI (non-ST elevated myocardial infarction) ([facility]) Admission Diagnosis: NSTEMI (non-ST elevated myocardial infarction) ([facility]) [I21.4] Hospital course: Kiara Blanc is an 68 y.o. female who came from [facility] for NSTEMI. Patient was admittied initailly at [facility] with known history of CAD, HLD, [...] Center 06/05/2023 9:00 AM Fany Sahu NP [employer] [address] Your medication list START taking [...] capsule Commonly known a (more content not included)...[facility]08-14-2023 NoteThis report has been cancelled.[facility]08-14-2023 Note Attestation signed by Luis Alvarez DO at 05/06/2023 1:32 PM Agree with above. No behavioral complaints over the weekend. Recommend following PT/Ot's recommendations regarding placement. Psychiatry Service Progress Note Identifying Data Patient Name: Kiara Blanc MRN / CSN: [id number] Date of / Age: 6 1955 / 68 y.o. / female Encounter Date: 05/06/23 Diagnosis: The primary encounter diagnosis was NSTEMI (non-ST elevated myocardial infarction) (CMS/HCC). A diagnosis of Acute on chronic systolic (congestive) heart failure (CMS/HCC) was also pertinent to this visit. Summary Kiara Blanc is a 68 y.o. female who presented on 04/26/2023 to [facility] from [facility] for acute NSTEMI. Psychiatry was consulted on 04/29/2023 for dementia and delirium. Medical Course: Patient is a 68-year-old female with an unknown psychiatric history and medical history of CAD, HLD, CAD, chronic diastolic HF w/ NYHA Class II, diabetes mellitus presented to [facility] as a direct transfer for cardiology service evaluation for acute NSTEMI. She was admitted initially at [facility] on 04/25/2023 after she was found lying [...] over 1000. She was subsequently transferred to [facility] for cardiac evaluation. She was [...] talk to , Mr. Cameron Blanc (ph: [phone]) at the patient's bedside. He called EMS [...] has put in referrals to [facility] choice; [facility] 2nd choice as well as alternate choices had no preference of order: [facility], [facility]; [facility]; [facility] and [facility]. Awaiting their review. 05/03/23 - [...] Initially sleeping, but up (more content not included)...[facility]08-13-2023 Note Hospital Medicine Daily Progress Note - 05/05/2023 10:49 AM; Room: [facility] Admission: 04/26/2023 1:50 PM; Length of stay: 9 days THE HOSPITALIST TEAM PREFERS TO USE [employer] CHAT FOR COMMUNICATION 7AM-7PM. IF I DO NOT RESPOND WITHIN 15 MINUTES, PLEASE PAGE ME/CALL THROUGH THE DRILLER MACHINE. FROM 7PM-7AM, PLEASE PAGE [phone](COVR) Code Status: Full Code Discharge Destination: group home facility Discharge planning: Pending SNF Overview Patient [...] Principal Problem: NSTEMI (non-ST elevated myocardial infarction) ([facility]) Active Problems: Acute cystitis without hematuria Hypoglycemia Traumatic rhabdomyolysis ([facility]) Acute on chronic systolic (congestive) heart failure ([facility]) Assessment and Plan # NSTEMI: # Chronic [...] 51 04/26/2023 Lab Results Component Value Date [id number] 04/29/2023 Imaging ECG 12 lead Sinus tachycardia Septal infarct , age undetermined T wave abnormality, consider lateral ischemia Abnormal ECG Confirmed by MD KERA, EHAB ([id number]) on 05/04/2023 11:50:40 AM Discharge Planning Discharge Planning Living Arrangements: Spouse/significant other Support Systems: Spouse/significant other Type of Residence/Post Acute Needs: intermediate facility Will patient need Precert for Post Acute needs?: Yes Patient's goal for discharge: per patient should go to rehab and maybe long term acute care registered nurse care. Does the patient need discharge transport arranged?: Yes Has discharge transport been arranged?: No PT Discharge Recommendations: intermediate facility placement OT Discharge Recomm (more content not included)...[facility]08-13-2023 NoteCountryside working on the insurance precert.[facility]08-12-2023 NotePhysical Therapy Physical Therapy Treatment Patient Name: Kiara Blanc : 1955 Today's Date: 05/04/2023 Patient Active Problem List Diagnosis Coronary artery disease involving port gamble coronary artery of port gamble heart without angina pectoris Hyperlipidemia, mixed Edema [...] seen for P.T. treatment session , upon technical writer and editor entering the room pt was supine in [...] across midline (reaching down to floor to supervisor picking crew cones off the floor) Dynamic Standing Balance-Level [...] sitting down. Other Activity Other Activity 2 Document Analyst left pt in bedside chair with her chair alarm on , technical writer and editor informed nursing that pt's chair alarm is not working well when engaged and doing the test to make sure it goes off . Call light within reach of pt Plan PT Discharge Recommendations intermediate facility placement Goals: Multi-Disciplinary Problems (from Physical [...] without using bedrails 3 (more content not included)...[facility]08-12-2023 Note Still no decision from husbands top 2 SNF choices. Met with at bedside and advised him of 2 accepting SNF's. chose [facility]. Sent updates and asked them to start precert. Provided w/ [facility] info. [facility]08-12-2023 Note Attestation signed by Gaby [...] fraction. She is to follow[place]up with the [place] cardiology office in [place]. Gaby Sanchez MD, MPH, [facility], [facility], [facility] Interventional Cardiology Pager Email: [email or web address] Subjective The patient was seen and examined [...] Value Ventricular Rate 83 Atrial Rate 83 OK Interval 178 QRS DURATION 88 QT Interval 414 QTC CALCULATION(BAZETT) 486 P Bryant 64 R-Bryant -19 T Wave Bryant 152 Impression Sinus rhythm with occasional Premature ventricular complexes Septal infarct , age undetermined Prolonged QT interval Abnormal ECG When compared with ECG of 16-MAR-2022 12:13, Premature ventricular complexes are now Present T wave inversion no longer evident in Anterolateral leads QT has lengthened Confirmed by Vrea MARTINEZ, L.S. (2) on 04/26/2023 4:09:15 PM [...] The right ventricle a (more content not included)...[facility]08-12-2023 NoteHospital Medicine Daily Progress Note - 05/04/2023 11:00 AM; Room: [facility]3131-01 Admission: 04/26/2023 1:50 PM; Length of stay: 8 days THE HOSPITALIST TEAM PREFERS TO USE [employer] CHAT FOR COMMUNICATION 7AM-7PM. IF I DO NOT RESPOND WITHIN 15 MINUTES, PLEASE PAGE ME/CALL THROUGH THE DRILLER MACHINE. FROM 7PM-7AM, PLEASE PAGE [phone](COVR) Code Status: Full Code Discharge Destination: group home facility Discharge planning: Pending SNF Overview Patient [...] Principal Problem: NSTEMI (non-ST elevated myocardial infarction) ([facility]) Active Problems: Acute cystitis without hematuria Hypoglycemia Traumatic rhabdomyolysis ([facility]) Acute on chronic systolic (congestive) heart failure ([facility]) Assessment and Plan # NSTEMI: # Chronic [...] 51 04/26/2023 Lab Results Component Value Date [id number] 512 04/29/2023 Imaging XR hip left 2 [...] 2. Osteoarthritis left hip. (more content not included)...[facility]08-12-2023 NoteOccupational Therapy Occupational Therapy Treatment Note Patient Name: Kiara Blanc Patient Date of : 1955 Today's Date: 05/04/23 Time in: 1034 Time Out: 1108 Total Time: 34 Active Ambulatory Problems Diagnosis Date Noted Coronary artery disease involving port gamble coronary artery of port gamble heart without angina pectoris 07/18/2022 Hyperlipidemia, mixed [...] impaired Sequencing impaired Problem Solving impaired Other Document Analyst questions further cognitive issues has pt had issues locating the bathroom, the sink and forgot were to put garbage. At [facility] technical writer and editor placed multiple grooming items in front of pt and asked her to point to each item as technical writer and editor named it. Pt only pointed to the [...] to change brief. Pt required assist to tub puller hips even after given verbal cues [...] With hands on for safety and with technical writer and editor guiding walker as pt was unable to follow instructions To toilet: Minimal Assist , Rolling Walker Comments: With hands on for safety and with technical writer and editor guiding walker as pt was unable to follow instructions/locate bathroom Functional Ambulation: Pt ambulated in room with use of walker with hands on for safety and with technical writer and editor to guide walker as pt had difficulty locating bathroom and sink even with verbal cues and technical writer and editor pointing in the direction. Tone: All extremities [...] Expected End Date E (more content not included)...[facility]08-11-[facility], [facility] need [facility] questionnaire filled out by . Scenic Designer (SW) gave 's contact information, [facility] left voicemail. SW informed that they are unable to fully approve or begin precert without questionnaire being completed. [facility] informed SW that they are out of network, but are able to accept if patient has 5 denied facilities. KAREEM informed then that there are not 5 denied facilities. [facility] still reviewing. [facility] requested additional notes from patient's stay, Sw sent via [employer]. [facility] requested to reach out to Shani [phone] pertaining to questions over the weekend. OTM will continue to follow.[facility]08-11-2023 Note Hospital Medicine Daily Progress Note - 05/03/2023 12:09 PM; Room: [address] [place] [address] Admission: 04/26/2023 1:50 PM; Length of stay: 7 days THE HOSPITALIST TEAM PREFERS TO USE [employer] FOR COMMUNICATION 7AM-7PM. IF I DO NOT RESPOND WITHIN 15 MINUTES, PLEASE PAGE ME/CALL THROUGH THE DRILLER MACHINE. FROM 7PM-7AM, PLEASE PAGE [phone](COVR) Code Status: Full Code Discharge Destination: group home facility Discharge planning: Cath today Overview Patient [...] Acute on chronic systolic (congestive) heart failure ([facility]) Assessment and Plan # NSTEMI: # Chronic [...] 51 04/26/2023 Lab Results Component Value Date [id number] 512 04/29/2023 Imaging XR hip left 2 [...] No fracture nor dislo (more content not included)...[facility]08-11-2023 NotePhysical Therapy: Refusal of services note Wednesday May 03, 2023 Pt had been cleared medically to receive therapy services . Upon entering the room pt was yelling into her phone and out into hallway that she needed something to drink , when technical writer and editor entered the room technical writer and editor checked for pt on getting her something to drink with her nurse. Jenn informed technical writer and editor that pt was NPO to prepare for a test today heart cath. When technical writer and editor told pt why she could not have any water because of the testing pt became very upset and refused to partipate in therapy services . Document Analyst wished pt the best of luck on her procedure today and made sure bed was in lowest position, and bed alarm on and that pt had her call light . Attempted time : 10:08-10:13am[facility]08-11-2023 Note Attestation signed by Luis Alvarez DO at 05/03/2023 3:17 PM Agree; zyprexa on standby for agitation/irritability/psychosis. Psychiatry Service Progress Note Identifying Data Patient Name: Kiara Blanc MRN / CSN: [id number] Date of / Age: 6 1955 / 68 y.o. / female Encounter Date: 05/03/23 Diagnosis: The primary encounter diagnosis was NSTEMI (non-ST elevated myocardial infarction) (CMS/HCC). A diagnosis of Acute on chronic systolic (congestive) heart failure (CMS/HCC) was also pertinent to this visit. Summary Kiara Blanc is a 68 y.o. female who presented on 04/26/2023 to [facility] from [facility] ([place]) for acute NSTEMI. Psychiatry was consulted on 04/29/2023 for dementia and delirium. Medical Course: Patient is a 68-year-old female with an unknown psychiatric history and medical history of CAD, HLD, CAD, chronic diastolic HF w/ NYHA Class II, diabetes mellitus presented to [facility] as a direct transfer for cardiology service evaluation for acute NSTEMI. She was admitted initially at [facility] ([facility]) on 04/25/2023 after she was found lying [...] over 1000. She was subsequently transferred to [facility] for cardiac evaluation. She was [...] talk to , Mr. Cameron Blanc (ph: [phone]) at the patient's bedside. He called EMS [...] Social work has put in referrals to [address]; [facility]' 2nd choice as well as alternate choices had no preference of order: [facility]; [facility]; [facility] and [facility]. Awaiting their review. 05/03/23 - start [...] overnight. Unable to f (more content not included)...[facility]08-10-2023 Note Per RN patient is doing better today and is out of mitts and any form of restraints. Patient has not pulled at any of her leads or lines today. Per RN and AIRCRAFT ARMAMENT MECHANIC advised them that he did remember now that a physician had given her a dx of dementia at some point. At request of the team they feel patient could be medically ready soon. Referrals made to [address]; [facility]' 2nd choice as well as alternate choices had no preference of order: [facility]; [facility]; [facility] and [facility]. Awaiting their review.[facility]08-10-2023 NotePhysical Therapy Physical Therapy Treatment Patient Name: Kiara Blanc : 1955 Today's Date: 05/02/2023 Patient Active Problem List Diagnosis Coronary artery disease involving port gamble coronary artery of port gamble heart without angina pectoris Hyperlipidemia, mixed Edema of lower extremity Chronic diastolic heart failure (CMS/HCC) Tobacco dependence NSTEMI (non-ST elevated myocardial infarction) ([facility]/HCC) Acute cystitis without hematuria Hypoglycemia Traumatic rhabdomyolysis [...] them clean her up earlier , when technical writer and editor entered the room pt was R sidelying and had a soiled brief that was half off her , technical writer and editor told pt she had to get cleaned up and could not sit in her BM , pt willing to get cleaned up pt kept telling technical writer and editor there are holes in the bathroom and was wondering again where her dog was . Cognition Orientation Level Disoriented to time;Disoriented to situation;Disoriented to place (pts came in at end of treatment session and informed technical writer and editor that pt was diagnosed by some doctor he did not remember what doctor or when with dementia. Pt thought her turkey sandwich today tasted and was swazi food) Static Sitting Balance Static Sitting-Balance Support [...] her lunch . Plan PT Discharge Recommendations intermediate facility placement Goals: Multi-Disciplinary Problems (from Physical [...] a railing 1 Mobility 6 Clicks T-Score 16[facility]08[facility] Note Physical Therapy Physical Therapy Treatment Patient Name: Kiara Blanc : 1955 Today's Date: 05/02/2023 Patient Active Problem List Diagnosis Coronary artery disease involving port gamble coronary artery of port gamble heart without angina pectoris Hyperlipidemia, mixed Edema of lower extremity Chronic diastolic heart failure (CMS/HCC) Tobacco dependence NSTEMI (non-ST elevated myocardial infarction) ([facility]/HCC) Acute cystitis without hematuria Hypoglycemia Traumatic rhabdomyolysis [...] them clean her up earlier , when technical writer and editor entered the room pt was R sidelying and had a soiled brief that was half off her , technical writer and editor told pt she had to get cleaned up and could not sit in her BM , pt willing to get cleaned up pt kept telling technical writer and editor there are holes in the bathroom and was wondering again where her dog was . Cognition Orientation Level Disoriented to time;Disoriented to situation;Disoriented to place (pts came in at end of treatment session and informed technical writer and editor that pt was diagnosed by some doctor he did not remember what doctor or when with dementia. Pt thought her turkey sandwich today tasted and was swazi food) Static Sitting Balance Static Sitting-Balance Support [...] her lunch . Plan PT Discharge Recommendations intermediate facility placement Goals: Multi-Disciplinary Problems (from Physical [...] a railing 1 Mobility 6 Clicks T-Score 16[facility]08-10-2023 Note Hospital Medicine Daily Progress Note - 05/02/2023 12:19 PM; Room: [address] [place] [address] Admission: 04/26/2023 1:50 PM; Length of stay: 6 days THE HOSPITALIST TEAM PREFERS TO USE [employer] CHAT FOR COMMUNICATION 7AM-7PM. IF I DO NOT RESPOND WITHIN 15 MINUTES, PLEASE PAGE ME/CALL THROUGH THE DRILLER MACHINE. FROM 7PM-7AM, PLEASE PAGE [phone](COVR) Code Status: Full Code Discharge Destination: group home facility Discharge planning: Pending SNF placement Overview [...] Principal Problem: NSTEMI (non-ST elevated myocardial infarction) ([facility]) Active Problems: Acute cystitis without hematuria Hypoglycemia Traumatic rhabdomyolysis ([facility]) Acute on chronic systolic (congestive) heart failure ([facility]) Assessment and Plan # NSTEMI: # Chronic [...] 51 04/26/2023 Lab Results Component Value Date [id number] 512 04/29/2023 Imaging XR hip left 2 [...] lesion is id (more content not included)... [facility]08-10-2023 NoteClinical Nutrition Assessment Name: Kiara [...] meals and improve glucose control George Link, [facility]DELRAHMANUnMer[facility]08-10-2023 NotePhysical Therapy Cancellation of services for am April Pt per nursing can be seen for physical therapy services , upon technical writer and editor entering pt's room pt was supine in the bed eating her breakfast with HOB elevated to 40 degrees . Pt was asking where her dog was technical writer and editor explained to pt that she was in a hospital and her dog was at home . Pt said OH she thought her dog was around here referring to the hospital . Pt was also doing gross grasp movements when holding her silverware eating her breakfast , pt stated her low back hurt and pt is willing to work with technical writer and editor after she finishes her breakfast. Attempted time: 09:58-10:05UnMer[facility]08-10-2023 Note Attestation signed by Luis Alvarez [...] Patient Name: Kiara Blanc MRN / CSN: [id number] Date of / Age: 6 1955 / y.o. / female Encounter Date: 05/02/23 Diagnosis: The primary encounter diagnosis was NSTEMI (non-ST elevated myocardial infarction) (CMS/HCC). A diagnosis of Acute on chronic systolic (congestive) heart failure (CMS/HCC) was also pertinent to this visit. Summary Kiara Blanc is a 68 y.o. female who presented on 04/26/2023 to [facility] from [facility] ([place]) for acute NSTEMI. Psychiatry was consulted on 04/29/2023 for dementia and delirium. Medical Course: Patient is a 68-year-old female with an unknown psychiatric history and medical history of CAD, HLD, CAD, chronic diastolic HF w/ NYHA Class II, diabetes mellitus presented to [facility] as a direct transfer for cardiology service evaluation for acute NSTEMI. She was admitted initially at [facility] ([facility]) on 04/25/2023 after she was found lying [...] over 1000. She was subsequently transferred to [facility] for cardiac evaluation. She was [...] talk to , Mr. Cameron Blanc (ph: [phone]) at the patient's bedside. He called EMS when he found her after coming back from work. He mentions she frequently falls at home and has been hospitalized many times. Per , she refuses to use walker desp (more content not included)...[facility]08-09-2023 Note Attestation signed by Fercho Le MD at 05/01/2023 5:55 PM I personally saw and examined the patient on the same date of service as resident/fellow Tamera Cervantes. I discussed the findings and therapeutic plan with the resident/fellow Tamera Cervantes. I agree with the documentation, except for any edits/updates below. Teaching Physician's Revisions: I have discussed her situation with her primary core checker Dr. Gaby Sanchez. We were planning on [...] Value Ventricular Rate 83 Atrial Rate 83 OK Interval 178 QRS DURATION 88 QT Interval 414 QTC CALCULATION(BAZETT) 486 P Bryant 64 R-Bryant -19 T Wave Bryant 152 Impression Sinus rhythm with occasional Premature [...] of measurable tricuspid regurgit (more content not included)...[facility]08-09-2023 Note05/01/23 1620 Admission Assessment Questions Verify insurance with patient Yes ([place] Medicare Advantage) Patient is not willing to answer Admission Assessment Questions at this time. Document Analyst asked if I could call her and she said no . OTM to follow. [facility]08-09-2023 NotePhysical Therapy Physical Therapy Treatment Patient Name: Kiara Blanc : 1955 Today's Date: 05/01/2023 Patient Active Problem List Diagnosis Coronary artery disease involving port gamble coronary artery of port gamble heart without angina pectoris Hyperlipidemia, mixed Edema [...] Cognitive Status Impaired (pt unable to tell technical writer and editor what she used to do for a [...] , SAQ 10 reps 1 set . Document Analyst did a static stretch with pt's heel [...] Transfer Level of Assistance (more content not included)...[facility]08-09-2023 Note05/01/23 1513 Referral Data Referral [...] Spouse/significant other Type of Residence/Post Acute Needs intermediate facility Will patient need Precert for Post Acute needs? Yes Patient's goal for discharge per patient should go to rehab and maybe care home care. Does the patient need discharge transport arranged? Yes Has discharge transport been arranged? No Discharge Referral Plan and Patient Instructions: [employer] [facility] ([facility] involved Adithya San [facility] [phone] ext [phone] or [phone]) KAREEM attempted to meet with patient. She [...] and doesn't do anything. SW spoke with [facility] Adithya San [phone] ext [phone]. (that visited with patient yesterday). They report that patients home is a hoarding home. They report it is in deplorable condition with mold. They cannot force the patient to go to rehab or care home care unless someone determines that patient does not have capacity to make her own decisions. They have offered to to assist and pay for clean up of the home. has evaded the offers and continually changes the subject when they offer. would like patient to go to rehab or rat exterminator care. He states he is agreeable to referrals to [facility] or [facility]. If these providers do not have available bed or unable to meet needs he is ok with referrals to: [facility], [facility], [facility], [facility] in [place] or [facility] in no particular order. SW will hold off on referrals today due to patients behaviors and her need for restraints. It does not appear that patient has any care home coverage for fdc if needed. SW referred to [facility] for determination if patient would qualify for Medicaid as secondary. SW to follow.[facility] 05-01-2023 NoteHospital Medicine Daily Progress Note - 05/01/2023 12:22 PM; Room: [facility]313- Admission: 04/26/2023 1:50 PM; Length of stay: 5 days THE HOSPITALIST TEAM PREFERS TO USE [employer] FOR COMMUNICATION 7AM-7PM. IF I DO NOT RESPOND WITHIN 15 MINUTES, PLEASE PAGE ME/CALL THROUGH THE DRILLER MACHINE. FROM 7PM-7AM, PLEASE PAGE [phone](COVR) Code Status: Full Code Discharge Destination: group home facility Discharge planning: Cath today Overview Patient [...] Acute cystitis without hematuria Hypoglycemia Traumatic rhabdomyolysis ([facility]/HCC) Acute on chronic systolic (congestive) heart failure ([facility]/HCC) Assessment and Plan # NSTEMI: # Chronic [...] 51 04/26/2023 Lab Results Component Value Date [id number] 512 04/29/2023 Imaging Complete Echo (TTE) w/wo Imaging Agent, Strain, 3D, Bubble Study 1 [facility] Heart Station [address] [place] [address] [phone] (fax) Echocardiogram-[facility] Name: KIARA BLANC Study Date: 04/26/2023 03:54 PM B/P: 129 mmHg/77 mmHg HR: Date of : 1955 Location: [facility] Height: 66 in. Age: 68 year(s) Patient Room: [facility] Weight: 203 lb. Gender: Female Patient Status: InPt BSA: 2.01 m2 Indication: Chest Pain Examination: Echocardiogram (Complete), Lumason Contrast Image Quality: Technically difficult study the patient was uncooperative Patient Consent: Procedure explained to patient Conclusions Left Ventricle: The left ventricle appears normal (more content not included)...[facility]08-09-2023 NoteOccupational Therapy Occupational Therapy Treatment Note Patient Name: Kiara Blanc Patient Date of : 1955 Today's Date: 05/01/23 Time in: 0928 Time Out: 1037 Total Time: 69 Active Ambulatory Problems Diagnosis Date Noted Coronary artery disease involving port gamble coronary artery of port gamble heart without angina pectoris 07/18/2022 Hyperlipidemia, mixed [...] was still looking for her dog after technical writer and editor oriented pt. Objective 1 Pt was returned to bed at [facility] due to pt fidgeting in chair and being impulsive. Objective 2 Upon arrival pts bedding was saturated with urine (pt had pulled out Purewick), technical writer and editor notes skin was on buttocks was red (nursing notified) pt also c/o pain in L hip throughout session, during rolling activity and when bringing legs into and out of bed. Document Analyst notified nursing as pt was found down [...] -up Where Assessed: from chair, None Comments: Document Analyst set up wash clothe and cued pt to wash areas of body LB Bathing Level of Assistance: Moderate assist Where Assessed: Supine (HOB raised) , from chair, None Comments: Rita care completed by technical writer and editor while supine, pt sat in chair to [...] body with minimal assistance (more content not included)...[facility]08-09-2023 Note Attestation signed by Luis [...] Patient Name: Kiara Blanc MRN / CSN: [id number] Date of / Age: 6 1955 / 68 y.o. / female Encounter Date: 05/01/23 Diagnosis: The primary encounter diagnosis was NSTEMI (non-ST elevated myocardial infarction) (CMS/[facility]). A diagnosis of Acute on chronic systolic (congestive) heart failure (CMS/[facility]) was also pertinent to this visit. Summary Kiara Blanc is a 68 y.o. female who presented on 04/26/2023 to [facility] from [facility] ([place]) for acute NSTEMI. Psychiatry was consulted on 04/29/2023 for dementia and delirium. Medical Course: Patient is a 68-year-old female with an unknown psychiatric history and medical history of CAD, HLD, CAD, chronic diastolic HF w/ NYHA Class II, diabetes mellitus presented to [facility] as a direct transfer for cardiology service evaluation for acute NSTEMI. She was admitted initially at [facility] ([facility]) on 04/25/2023 after she was found lying [...] over 1000. She was subsequently transferred to [facility] for cardiac evaluation. She was [...] talk to , . Cameron Blanc (ph: [phone]) at the patient's bedside. He called EMS [...] seen or talked (more content not included)... [facility]08-08-2023 NoteSW given information from RN provided by [facility]. Case Workers Leanna Umang [phone] ext [phone] and Adithya San [phone] ext [phone]. They provided a release of information for [facility] to communicate with [facility]PS. Copy of release in paper chart. Due to being after hours social media project manager will call in the am. No family at bedside. SW advised patient is not oriented and will need SNF. SW to follow [facility]08-08-2023 NotePhysical Therapy Physical Therapy Treatment Patient Name: Kiara Blanc : 1955 Today's Date: 04/30/2023 Patient Active Problem List Diagnosis Coronary artery disease involving port gamble coronary artery of port gamble heart without angina pectoris Hyperlipidemia, mixed Edema of lower extremity Chronic diastolic heart failure (CMS/HCC) Tobacco dependence NSTEMI (non-ST elevated myocardial infarction) (CMS/HCC) Acute cystitis without hematuria Hypoglycemia Traumatic rhabdomyolysis ([facility]) Time : 11:04-11:45 04/30/23 1556 PT Last Visit PT Received On 04/30/23 General Subjective Pt had been cleared medically by nursing staff to receive therapy services , nursing informed technical writer and editor that pt was refusing all services this morning including her am medications. Upon technical writer and editor entering the room pt was L sidelying in the bed with her food tray in bed with her , pt has 1 sand mitt on and while nursing in the room pt took off other sand mitt. Document Analyst able to talk pt into working with [...] bedside chair with chair alarm on , technical writer and editor promised to come back a couple of hours to get pt back to bed and see how she was transferring pt in agreeable to do this . Plan Level of assist 1 assist PT Discharge Recommendations intermediate facility placement Goals: Multi-Disciplinary Problems (from Physical Therapy) [facility] Start Date: 04/29/23 Goal Start Date [...] from another person standi (more content not included)...[facility]08-08-2023 NoteHospital Medicine Daily Progress Note - 04/30/2023 1:14 PM; Room: [address] [place] [address] Admission: 04/26/2023 1:50 PM; Length of stay: 4 days THE HOSPITALIST TEAM PREFERS TO USE [employer] FOR COMMUNICATION 7AM-7PM. IF I DO NOT RESPOND WITHIN 15 MINUTES, PLEASE PAGE ME/CALL THROUGH THE DRILLER MACHINE. FROM 7PM-7AM, PLEASE PAGE [phone](COVR) Code Status: Full Code Discharge Destination: group home facility Discharge planning: Pending placement Overview Patient [...] Principal Problem: NSTEMI (non-ST elevated myocardial infarction) ([facility]) Active Problems: Acute cystitis without hematuria Hypoglycemia Traumatic rhabdomyolysis ([facility]) Assessment and Plan # NSTEMI: # Chronic [...] 51 04/26/2023 Lab Results Component Value Date [id number] 512 04/29/2023 Imaging Complete Echo (TTE) w/wo Imaging Agent, Strain, 3D, Bubble Study 1 1 [facility] Heart Station [address] [place] [address] [phone] (fax) Echocardiogram-[facility] Name: KIARA BLANC Study Date: 04/26/2023 03:54 PM B/P: 129 mmHg/77 mmHg HR: Date of : 1955 Location: [facility] Height: 66 in. Age: 68 year(s) Patient Room: 3131 Weight: 203 lb. Gender: Female Patient Status: InPt BSA: 2.01 m2 Indication: Chest Pain Examination: Echocardiogram (Complete), Lumason Contrast Image Quality: Technically difficult study the patient was uncooperative Patient Consent: Procedure explained to patient Conclusions Left Ventricle: The left ventricle appe (more content not included)...[facility] 04-30-2023 NotePhysical Therapy Physical Therapy Treatment Patient Name: Kiara Blanc : 1955 Today's Date: 04/30/2023 Patient Active Problem List Diagnosis Coronary artery disease involving port gamble coronary artery of port gamble heart without angina pectoris Hyperlipidemia, mixed Edema of lower extremity Chronic diastolic heart failure (CMS/HCC) Tobacco dependence NSTEMI (non-ST elevated myocardial infarction) ([facility]/HCC) Acute cystitis without hematuria Hypoglycemia Traumatic rhabdomyolysis ([facility]/HCC) Time : 12:30-13:00pm 04/30/23 1305 PT Last Visit PT Received On 04/30/23 General Subjective Document Analyst had come back to put pt back to bed after she had been up for a while, upon technical writer and editor entering the room pt was sitting in [...] ,Chair alarm on Plan PT Discharge Recommendations intermediate facility placement Goals: Multi-Disciplinary Problems (from Physical [...] and limit effects of immobility 04/29/23 05/13/23 --[facility]08-08-2023 Note Attestation signed by Fercho [...] Value Ventricular Rate 83 Atrial Rate 83 OK Interval 178 QRS DURATION 88 QT Interval 414 QTC CALCULATION(BAZETT) 486 P Bryant 64 R-Bryant -19 T Wave Bryant 152 Impression Sinus rhythm with occasional Premature [...] graft to the OM-2, (more content not included)...[facility] 04-30-2023 NoteSubjective Patient did not [...] Value Ventricular Rate 83 Atrial Rate 83 OK Interval 178 QRS DURATION 88 QT Interval 414 QTC CALCULATION(BAZETT) 486 P Bryant 64 R-Bryant -19 T Wave Bryant 152 Impression Sinus rhythm with occasional Premature [...] without hematuria Traumatic rhab (more content not included)...[facility] 04-29-2023 NoteHospital Medicine Daily Progress Note - 04/29/2023 3:04 PM; Room: [facility]/3131- Admission: 04/26/2023 1:50 PM; Length of stay: 3 days THE HOSPITALIST TEAM PREFERS TO USE [employer] CHAT FOR COMMUNICATION 7AM-7PM. IF I DO NOT RESPOND WITHIN 15 MINUTES, PLEASE PAGE ME/CALL THROUGH THE DRILLER MACHINE. FROM 7PM-7AM, PLEASE PAGE [phone](COVR) Code Status: Full Code Discharge Destination: group home facility Discharge planning: Pending psych eval Overview [...] Principal Problem: NSTEMI (non-ST elevated myocardial infarction) ([facility]) Active Problems: Acute cystitis without hematuria Hypoglycemia Traumatic rhabdomyolysis ([facility]) Assessment and Plan # NSTEMI: # New [...] 51 04/26/2023 Lab Results Component Value Date [id number] 512 04/29/2023 Imaging Complete Echo (TTE) w/wo Imaging Agent, Strain, 3D, Bubble Study 1 1 [facility] Heart Station [address] [place] [address] [phone] (fax) Echocardiogram-[facility] Name: KIARA BLANC Study Date: 04/26/2023 03:54 PM B/P: 129 mmHg/77 mmHg HR: Date of : 1955 Location: [facility] Height: 66 in. Age: 68 [...] systolic function is sever (more content not included)...[facility]08-07-2023 NotePhysical Therapy Physical Therapy Evaluation Patient Name: Kiara Blanc : 1955 Today's Date: 04/29/2023 Patient is a 68 y/o female who presented to [facility] 04/26/2023 from [facility] for cardiology [...] Problem List Diagnosis Coronary artery disease involving port gamble coronary artery of port gamble heart without angina pectoris Hyperlipidemia, mixed Edema of lower extremity Chronic diastolic heart failure (CMS/HCC) Tobacco dependence NSTEMI (non-ST elevated myocardial infarction) (CMS/HCC) Acute cystitis without hematuria Hypoglycemia Traumatic rhabdomyolysis (CMS/HCC) History reviewed. No pertinent past medical history. History reviewed. No pertinent surgical history. Precautions Precautions Medical Precautions: bed alarm, 4 bedrails, IV, bilateral mitts, telemetry, fall risk Pain Pain Assessment Pain Assessment: Wihtman-Cavazos FACES Pain Score: 0 - No pain [...] is a 68 y/o (more content not included)...[facility]08-07-2023 Note Attestation signed by Fercho [...] Value Ventricular Rate 83 Atrial Rate 83 OK Interval 178 QRS DURATION 88 QT Interval 414 QTC CALCULATION(BAZETT) 486 P Bryant 64 R-Bryant -19 T Wave Bryant 152 Impression Sinus rhythm with occasional Premature [...] 05/07/2017 PROCEDURES PERFORMED: Coronar (more content not included)...[facility]08-07-2023 NoteOccupational Therapy Occupational Therapy Evaluation Patient Name: Kiara Blanc : 1955 Today's Date: 04/29/2023 Time In: 1051 Time Out: 1106 History of Present Illness Kiara Blanc is an 68 y.o. female who came from [facility] for NSTEMI. Patient was adm[facility] with known history of CAD, HLD, [...] Problem List Diagnosis Coronary artery disease involving port gamble coronary artery of port gamble heart without angina pectoris Hyperlipidemia, mixed Edema of lower extremity Chronic diastolic heart failure ([facility]/HCC) Tobacco dependence NSTEMI (non-ST elevated myocardial infarction) ([facility]) Acute cystitis without hematuria Hypoglycemia Traumatic rhabdomyolysis ([facility]) History reviewed. No pertinent past medical history. [...] Level of Function Prior Function Level of [place]: (unknown , based on body habitus likely [...] (Total Assist) Total Score (more content not included)...[facility] 04-28-2023 Note Attestation signed by [...] Value Ventricular Rate 83 Atrial Rate 83 OK Interval 178 QRS DURATION 88 QT Interval 414 QTC CALCULATION(BAZETT) 486 P Bryant 64 R-Bryant -19 T Wave Bryant 152 Impression Sinus rhythm with occasional Premature [...] was administered for better (more content not included)...[facility]08-06-2023 Note Hospital Medicine Daily Progress Note - 04/28/2023 1:24 PM; Room: [facility]/3131-01 Admission: 04/26/2023 1:50 PM; Length of stay: 2 days THE HOSPITALIST TEAM PREFERS TO USE [employer] CHAT FOR COMMUNICATION 7AM-7PM. IF I DO NOT RESPOND WITHIN 15 MINUTES, PLEASE PAGE ME/CALL THROUGH THE DRILLER MACHINE. FROM 7PM-7AM, PLEASE PAGE [phone](COVR) Code Status: Full Code Discharge Destination: TBD [...] 51 04/26/2023 Lab Results Component Value Date [id number] 436 2022 Imaging Complete Echo (TTE) w/wo Imaging Agent, Strain, 3D, Bubble Study 1 1 [facility] Heart Station [address] [place] [address] [phone] (fax) Echocardiogram-[facility] Name: KIARA BLANC Study Date: 04/26/2023 03:54 PM B/P: 129 mmHg/77 mmHg HR: Date of : 1955 Location: [facility] Height: 66 in. Age: 68 year(s) Patient Room: 3131 Weight: 203 lb. Gender: Female Patient Status: InPt BSA: 2.01 m2 Indication: Chest Pain Examination: Echocardiogram (Complete), Lumason Contrast Image Quality: Technically difficult study the patient was uncooperative Patient Consent: Procedure explained to patient Conclusions Left Ventricle: The left ventricle appears normal in size. Global left ventricular sy (more content not included)...[facility]08-05-2023 Note Attestation signed by Fercho [...] Value Ventricular Rate 83 Atrial Rate 83 OK Interval 178 QRS DURATION 88 QT Interval 414 QTC CALCULATION(BAZETT) 486 P Bryant 64 R-Bryant -19 T Wave Bryant 152 Impression Sinus rhythm with occasional Premature [...] Ventricle: The right ventricle (more content not included)...[facility]08-05-2023 NoteHospital Medicine Daily Progress Note - 04/27/2023 1:18 PM; Room: 3131/3131-01 Admission: 04/26/2023 1:50 PM; Length of stay: 1 days THE HOSPITALIST TEAM PREFERS TO USE [employer] FOR COMMUNICATION 7AM-7PM. IF I DO NOT RESPOND WITHIN 15 MINUTES, PLEASE PAGE ME/CALL THROUGH THE DRILLER MACHINE. FROM 7PM-7AM, PLEASE PAGE [phone](COVR) Code Status: Full Code Discharge Destination: TBD [...] Principal Problem: NSTEMI (non-ST elevated myocardial infarction) ([facility]) Active Problems: Acute cystitis without hematuria Hypoglycemia Traumatic rhabdomyolysis ([facility]) Assessment and Plan # NSTEMI: # Drop [...] 51 04/26/2023 Lab Results Component Value Date [id number] 436 2022 Imaging Complete Echo (TTE) w/wo Imaging Agent, Strain, 3D, Bubble Study 1 1 [facility] Heart Station [address] [place] [address] [phone] (fax) Echocardiogram-[facility] Name: KIARA BLANC Study Date: 04/26/2023 03:54 PM B/P: 129 mmHg/77 mmHg HR: Date of : 1955 Location: [facility] Height: 66 in. Age: 68 [...] systolic function appears re (more content not included)...[facility] 04-27-2023 NoteEMS had called APS regarding the patient. Attempted to call [facility] to follow up but they are only open Mon-Fri 8am-4:30pm.[facility]08-05-2023 NoteOutput from [facility] NoteHospital Medicine History and Physical 04/26/2023 2:36 PM THE HOSPITALIST TEAM PREFERS TO USE [employer] CHAT FOR COMMUNICATION 7AM-7PM. IF I DO NOT RESPOND WITHIN 15 MINUTES, PLEASE PAGE ME/CALL THROUGH THE DRILLER MACHINE. FROM 7PM-7AM, PLEASE PAGE [phone](COVR) Chief Complaint NSTEMI History of Present Illness iKara Blanc is an 68 y.o. female who came from [facility] for NSTEMI. Patient was admittied initailly at [facility] with known history of CAD, HLD, [...] Date Noted NSTEMI (non-ST elevated myocardial infarction) ([facility]) 04/26/2023 Acute cystitis without hematuria 04/26/2023 Hypoglycemia 04/26/2023 Traumatic rhabdomyolysis ([facility]) 04/26/2023 Coronary artery disease involving port gamble coronary artery of port gamble heart without angina pectoris 07/18/2022 Hyperlipidemia, mixed 07/18/2022 Edema of lower extremity 07/18/2022 Chronic diastolic heart failure ([facility]) 07/18/2022 Tobacco dependence 07/18/2022 Assessment and Plan NSTEMI-Type I versus some contribution by type II secondary to rhabdo. Continue to trend troponin curve, continue aspirin, Plavix, heparin drip. Add PPI for prophylaxis. Obtain surface echo. Discussed with ready to wear department manager. No plans for cath today and will [...] appropriate. Please see abov (more content not included)...[facility]06-19-2023 Hospital Discharge instructions* Discharge Instructions* [...] Everywhere. * UTI (Urinary Tract Infection): Female (Bhut[place]) [facility] Includes: Assessments for all patient encounters Findings Encounter Date Anxiety disorder NOS Established Patient with Sobia Short LISWS 03/07/2023 Last Documented On 3 9:52PM ; [facility] Dependence on nicotine in ci garettes - uncomplicated Established Patient with Sobia Short LISWS 03/07/2023 Last Documented On 3 9:52PM ; [facility] Mild recurrent major depression Estab lished Patient with Sobia Short LISWS 03/07/2023 Last Documented On 3 9:52PM ; [facility] [Body mass index [BMI] 33.0- 33.9, adult] assessment of body mass index Medical New Patient with Sonya Carlo DECISION SUPPORT ANALYST 03/07/2023 Last Documented On 3 5:01PM ; [facility] Diabetes Risk Test Score was 7.0 score 03/07/2023 Medical New Patient with Sonya Carlo DECISION SUPPORT ANALYST 03/07/2023 Last Documented On 3 5:01PM ; [facility] Work Phone: [phone]) 883-141206-15-2023 Evaluation note Includes: Assessments for all patient encounters Findings Encounter Date Anxiety disorder NOS Established Patient with Sboia Short LISWS 03/07/2023 Last Documented On 3 9:52PM ; [facility] Dependence on nicotine in ci garettes - uncomplicated Established Patient with Sobia Short LISWS 03/07/2023 Last Documented On 3 9:52PM ; [facility] Mild recurrent major depression Estab lished Patient with Sobia Short LISWS 03/07/2023 Last Documented On 3 9:52PM ; [facility] [Body mass index [BMI] 33.0- 33.9, adult] assessment of body mass index Medical New Patient with Sonya Carlo DECISION SUPPORT ANALYST 03/07/2023 Last Documented On 3 5:15AM ; [facility] Colon screening Medical New Patient with Sonya Carlo DECISION SUPPORT ANALYST 03/07/2023 Last Documented On 3 5:15AM ; [facility] Diabetes Risk Test Score was 7.0 score 03/07/2023 Medical New Patient with Sonya Carlo DECISION SUPPORT ANALYST 03/07/2023 Last Documented On 3 5:15AM ; [facility] Screening for Hep C Medical New Patient with Ronnie sie Carlo DECISION SUPPORT ANALYST 03/07/2023 Last Documented On 3 5:15AM ; [facility] Screening for HIV Medical New Patient with Joselyn e Carlo DECISION SUPPORT ANALYST 03/07/2023 Last Documented On 3 5:15AM ; [facility] Work Phone: [phone]) 659-326806-15-2023 Evaluation note Includes: Assessments for all patient encounters Findings Encounter Date Anxiety disorder NOS Established Patient with Sobia Short LISWS 03/07/2023 Last Documented On 3 9:52PM ; [facility] Dependence on nicotine in ci garettes - uncomplicated Established Patient with Sobia Short LISWS 03/07/2023 Last Documented On 3 9:52PM ; [facility] Mild recurrent major depression Estab lished Patient with Sobia Short LISWS 03/07/2023 Last Documented On 3 9:52PM ; [facility] [Body mass index [BMI] 33.0- 33.9, adult] assessment of body mass index Medical New Patient with Sonya Carlo DECISION SUPPORT ANALYST 03/07/2023 Last Documented On 3 7:51PM ; [facility] Colon screening Medical New Patient with Sonya Carlo DECISION SUPPORT ANALYST 03/07/2023 Last Documented On 3 7:51PM ; [facility] Diabetes Risk Test Score was 7.0 score 03/07/2023 Medical New Patient with Sonya Carlo DECISION SUPPORT ANALYST 03/07/2023 Last Documented On 3 7:51PM ; [facility] Screening for Hep C Medical New Patient with Ronnie sie Carlo DECISION SUPPORT ANALYST 03/07/2023 Last Documented On 3 7:51PM ; [facility] Screening for HIV Medical New Patient with Joselyn Posada DECISION SUPPORT ANALYST 03/07/2023 Last Documented On 3 7:51PM ; [facility] Work Phone: [phone] 889-922906-15-2023 History general Narrative - Reported Includes: Medical History in patient's chart Description Last Updated History of tooth extraction 03/07/2023 Last Documented On 3 5:15AM ; [facility] No medical history or no significant his tory 03/07/2023 Last Documented On 3 5:15AM ; [facility] No previous hospitalizations 03/07/2023 Last Documented On 3 5:15AM ; [facility] Recent immunization for flu 03/07/2023 Last Documented On 3 5:15AM ; [facility] Work Phone: 1([phone]) 121-690906-15-2023 History general Narrative - Reported Includes: Medical History in patient's chart Description Last Updated History of tooth extraction 03/07/2023 Last Documented On 3 7:51PM ; [facility] No medical history or no significant his tory 03/07/2023 Last Documented On 3 7:51PM ; [facility] No previous hospitalizations 03/07/2023 Last Documented On 3 7:51PM ; [facility] Recent immunization for flu 03/07/2023 Last Documented On 3 7:51PM ; [facility] Work Phone: [phone]) 426-963106-15-2023 Progress note* Progress note Date Encounter Last Documented by 03/07/2023 Established Patient Last docu mented on 03/10/2023; 9:52 PM, Sobia MALDONADO; [facility] Active Problems & Conditions - F41.9 - Anxiety Disorder Nos - E13.40 - Diabetes Mellitus Diabetic Peripheral Neuropathy - E11.9 - Diabetes Mellitus Type 2 Without Complication - I10 - Essential Hypertension - F33.0 - Major Depression Recurrent Mild - F17.210 - Nicotine Dependence Cigarettes Uncomplicated Chief Complaint The Chief Complaint is: Patient is in to establish care and [facility] met with patient to follow-up regarding PHQ [...] and provider: Counseling/Education P introduced patient to [facility] integrated model of care. P provided supportive [...] + 0 pt : Not at all. [facility]06-15-2023 Progress note* Progress note Date Encounter Last Documented by 03/07/2023 Medical New Patient Last jose cruz burt on 03/12/2023; 5:15 AM, Sonya Posada CNP; [facility] Active Problems & Conditions - F41.9 - Anxiety Disorder Nos - E13.40 - Diabetes Mellitus Diabetic Peripheral Neuropathy - E11.9 - Diabetes Mellitus Type 2 Without Complication - I10 - Essential Hypertension - F33.0 - Major Depression Recurrent Mild - F17.210 - Nicotine Dependence Cigarettes Uncomplicated Chief Complaint The Chief Complaint is: [facility] was seeing at [facility] diabetic. Referred Here Not referred by urgent care clinic and not the emergency room. No prior encounters. - Data to be reviewed: no clinical lab tests History of Present Illness Kiara Blanc is a 67 year old female. - Allergy list reviewed - Reviewed Medications Patient presents to [facility] Patient goes to an rat culturist and core checker Patient has had multiple falls and just [...] BP-Sitting L115/55 mmHg BP Cuff SizeRegular Pulse Rate-Fylwrcp22 bpm Temp-Oscoqgde72.5 F Fxwtka18 in Cvhuba667 lbs Body Mass Index33.4 kg/m2 Body Surface Area2 m2 Oxygen Ckcadqbgfl33 % Tests Urinalysis Was Performed: Routine urinalysis without microscopic examination abnormal Protein ++100. Glucose Negative, Bilirubin Negative, Urobilinogen 0.2, Nitrite Negative, and Ketones 0 Negative. Abnormal Leukocyte Estrase +++Large, Blood Trace Hemolyzed, Specific [place] 1.025, and pH 7.0. Urine clarity Turbid [...] Present, PCP Not Present, OXY Not Present, [id number] Not Present, MTD Not Present, MET Not [...] Dysuria Outside Labs/Microbiology: Urine Culture & Sensitivity ([id number]) EndCited StartCited- Type 2 diabetes mellitus without [...] 60 years or older (3 points) [Pre-DM]. [facility]06-15-2023 Progress note* Progress note Date Encounter Last Documented by 03/07/2023 Medical New Patient Last jose cruz burt on 03/14/2023; 7:51 PM, Sonya Posada CNP; [facility] Active Problems & Conditions - F41.9 - Anxiety Disorder Nos - E13.40 - Diabetes Mellitus Diabetic Peripheral Neuropathy - E11.9 - Diabetes Mellitus Type 2 Without Complication - I10 - Essential Hypertension - F33.0 - Major Depression Recurrent Mild - F17.210 - Nicotine Dependence Cigarettes Uncomplicated Chief Complaint The Chief Complaint is: [facility] was seeing at [facility] diabetic. Referred Here Not referred by urgent care clinic and not the emergency room. No prior encounters. - Data to be reviewed: no clinical lab tests History of Present Illness Kiara Blanc is a 67 year old female. - Allergy list reviewed - Reviewed Medications Patient presents to [facility] Patient goes to an rat culturist and core checker Patient has had multiple falls and just [...] BP-Sitting L115/55 mmHg BP Cuff SizeRegular Pulse Rate-Dommzzq41 bpm Temp-Cgnlvxyg08.5 F Uuzcxm90 in Mxdzjs927 lbs Body Mass Index33.4 kg/m2 Body Surface Area2 m2 Oxygen Chftyjdpsa85 % Tests Urinalysis Was Performed: Routine urinalysis without microscopic examination abnormal Protein ++100. Glucose Negative, Bilirubin Negative, Urobilinogen 0.2, Nitrite Negative, and Ketones 0 Negative. Abnormal Leukocyte Estrase +++Large, Blood Trace Hemolyzed, Specific [place] 1.025, and pH 7.0. Urine clarity Turbid [...] Present, PCP Not Present, OXY Not Present, [id number] Not Present, MTD Not Present, MET Not [...] Dysuria Outside Labs/Microbiology: Urine Culture & Sensitivity ([id number]) EndCited StartCited- Type 2 diabetes mellitus without [...] (3 points) [Pre-DM]. [id number] discussion with patient regarding smoking cessation, she denies need for prescription for Wellbutrin, she refuses Chantix related to she already has nightmares, and she does not want nicotine gum because of dentures. States she is going to get nicotine patches that she is can order from the TV for free. [facility]10-26-2022 NoteContinued goal-directed medical therapy, aspirin, statin, Plavix, metoprolol and lisinopril No concerning symptoms currently Continue risk factor modifications including heart healthy diet, regular exercise as tolerated and she is trying to quit smoking.[facility]10-26-2022 NoteContinue statinUnMer[facility] 07-18-2022 NoteContinues to take lasix daily [...] clinic in 6 months or earlier if neededUnMercy Health [facility] Hospital10-26-2022 NotePatient here for follow up LE edema per Mariam Sahu CNP. She had BMP drawn today. Review of Systems Cardiovascular: Positive for leg swelling. All other systems reviewed and are negative.[facility] 07-18-2022 NoteSays her LE edema is much better now. Denies chest pain and SOB. Review of Systems Cardiovascular: Positive for leg swelling.[facility] 07-18-2022 NoteHPI: Kiara Blanc is [...] on exertion or at rest or orthopnea. [facility] II-without exacerbation currently patient is euvolemic Return to clinic in 6 months or earlier if needed Hyperlipidemia, mixed Continue statin Coronary artery disease involving [place] coronary artery of [place] heart without angina pectoris Continued goal-directed medical [...] can order from the TV for free. [facility]07-03-2022 NoteMR#: [id number] I [facility] Pt. Name: Kiara Blanc Admitted: 03/16/2022 Discharged: 03/25/2022 Date of : 1955 Physician: Yris Quna MD DISCHARGE SUMMARY PRIMARY DIAGNOSES: Status post [...] Quan MD Date Trans: 03/25/2022 05:24 P/mp [id number] cc: Peter Santos M.D. [address] [facility] [address] Reinaldo Marlow M.D. [address] [place], [place] [address]Evalubeebe [facility] note* Diagnosis Acute cystitis without hematuria- Primary Acute cystitis documented in this encounter [facility] noteNo assessment information available [facility] Work Phone: History general Narrative - Reported Includes: Medical History in patient's chart No Medical History RecordedHealth [facility] Work Phone: History of Present illness Narrative History of Present Illness not supported for this document type No History of Present Illness RecordedHealth [facility] Work Phone: Instructions Includes: Instructions for all patient encounters Education and Decision Aids were provided during visit for: BHP introduced patient to [facility] integrated model of care. ~P [...] scheduled Last Documented On 3 9:52PM ; [facility] Discussed nutritional needs teach healthy choices including fruits and vegetables Last Documented On 3 3:42PM ; [facility] Patient education about a pr oper diet Last Documented On 3 3:42PM ; [facility] Discussed concerns about exe rcise : promote physical activity Last Documented On 3 3:42PM ; [facility] Referred Patient to a Diabet es Self-Management Program Last Documented On 3 4:08PM ; [facility] Work Phone: Instructions Includes: Instructions for all patient encounters Education and Decision Aids were provided during visit for: BHP introduced patient to [facility] integrated model of care. ~P [...] scheduled Last Documented On 3 9:52PM ; [facility] Discussed nutritional needs teach healthy choices including fruits and vegetables Last Documented On 3 3:42PM ; [facility] Patient education about a pr oper diet Last Documented On 3 3:42PM ; [facility] Discussed concerns about exe rcise : promote physical activity ~ ~Get labs done and follow up in two weeks Last Documented On 3 5:15AM ; [facility] Referred Patient to a Diabet es Self-Management Program Last Documented On 3 4:08PM ; [facility] Work Phone: Instructions Includes: Instructions for all patient encounters Education and Decision Aids were provided during visit for: BHP introduced patient to [facility] integrated model of care. ~BHP provided supportive [...] scheduled Last Documented On 3 9:52PM ; [facility] Discussed nutritional needs teach healthy choices including fruits and vegetables Last Documented On 3 3:42PM ; [facility] Patient education about a pr oper diet Last Documented On 3 3:42PM ; [facility] Discussed concerns about exe rcise : promote physical activity ~ ~Get labs done and follow up in two weeks Last Documented On 3 5:15AM ; [facility] Referred Patient to a Diabet es Self-Management Program Last Documented On 3 4:08PM ; [facility] Work Phone: Patient problem outcome Narrative Includes: Evaluations & Outcomes for active Goals No Outcomes RecordedW[facility] Work Phone: Reason for referral (narrative)No Reason for Referral RecordedW[facility] Work Phone: Review of systems Narrative - Reported Review of Systems not supported for this document type No Review of Systems RecordedW[facility]hen[facility] Work Phone: Summary Purpose Family History No Family History Records Found Description Last Updated Maternal history of oncologic disorder 0 03/07/2023 Last Documented On 3 5:15AM ; [facility] Maternal history of type 2 diabetes luz itus 03/07/2023 Paternal history of type 2 diabetes luz itus 03/07/2023 Description Last Updated Maternal history of oncologic disorder 0 03/07/2023 Last Documented On 3 7:51PM ; [facility] Maternal history of type 2 diabetes luz itus 03/07/2023 Paternal history of type 2 diabetes luz itus 03/07/2023 Description Last Updated Maternal history of oncologic disorder 0 03/07/2023 Last Documented On 7:51PM ; [facility] Maternal history of type 2 diabetes [...] DATE CREATED AUTHOR AUTHOR'S ORGANIZ ATION 02/17/2022 [facility] dical Specialist DATE CREATED AUTHOR AUTHOR'S ORGANIZ ATION 04/04/2022 [facility] DATE CREATED AUTHOR AUTHOR'S ORGANIZ ATION 01/14/2023 [facility] DATE CREATED AUTHOR AUTHOR'S ORGANIZ ATION 01/23/2023 [facility] DATE CREATED AUTHOR AUTHOR'S ORGANIZ ATION 03/09/2023 [facility] DATE CREATED AUTHOR AUTHOR'S ORGANIZ ATION 06/14/2023 [facility] DATE CREATED AUTHOR AUTHOR'S ORGANIZ ATION 11/09/2023 [facility] Reason for Visit (unrecogniz ed section [...] Care Teams (unrecognized sec tion and content) Mail Clerk Relationship Specialty Start Date End Date Sonya Posada, PRE K SPECIAL EDUCATION TEACHER - HEALTHCARE EDUCATOR [address] [place] [id number] PCP - General 03/11/23 Team Status: Inactive [...] BE BASED ON THE PRIMARY CLINICAL RECORDS. [facility]. provides no warranty or guarantee of the accuracy or completeness of information in this document.
== END 2024-12-09 11:44 | disposition home or self-care (01) ==
LOC: WC 11:43
PROVIDERS: Visit Provider Physician Assistant
DX: E11.621 Type 2 diabetes mellitus with foot ulcer (principal); L97.512 Non-pressure chronic ulcer of other part of right foot with fat layer exposed; S80.812A Abrasion, left lower leg, initial encounter; L97.413 Non-pressure chronic ulcer of right heel and midfoot with necrosis of muscle
CPT/HCPCS: G0463

== ENCOUNTER 2025-04-13 13:24 | Outpatient (REF) | payer MEDICARE, MEDICAID, SELFPAY ==
--- OUTSIDE RECORDS SUMMARY | 2023-11-06 09:00 | XMS_ITS ---
Author Organization The [facility] in [place] Address [address] [place] [place] [address] Care Team Providers Care Bone Tender Name Role Phone None, Unknown or Primary Care Provider Unavailab Sean Hawley Unavailable [phone] REASON FOR VISIT TMA Problems Problem Type SNOMED Code ICD Code Onset Dates Problem Status W/U Status Risk Notes Problem Acute osteomyelitis of ankle and/or foot (499683801) Acute osteomyelitis of left ankle (M86.172) Active confirmed Problem Foot ulcer due to type 2 diabetes mellitus (2106134437487) Type 2 diabetes mellitus with foot ulcer (E11.621) Active confirmed Problem Polyneuropathy due to type 2 diabetes mellitus (427783364) Diabetes mellitus with diabetic polyneuropathy (E11.42) Active confirmed Problem Non-pressure chronic ulcer of other part of left foot with necrosis of bone (L97.524) Active confirmed Problem 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) (184924076) 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) Active confirmed Encounters Encounter Location Date Provider Diagnosis [facility] (PODIATRY) [address] [place] [address] [place] [address] 11/06/2023 Sean Montemayor Plan Of Treatment No Information Progress Notes * EMILY HARODOB: 956 (70 yo F)Acc No.[id number]:11/06/2023 UNLOCKED PROGRESS NOTE Patient: Raissa LAZOCHRISSYPERLATHOMAS Provider: Julian Montemayor DPM, MS :1955 A ge:68 Y S ex:Female Date:11/06/2023 Address:[address] [place], [place] [id number] Pcp:Unknown or None Check Out:09:41 AM EST * * Electronic signature of Denis Montemayor DPM on 04/13/2025 at 01:34 PM EDT Sign off status: Pending Visit Status: Francis HILARIO (Check Out) * Provider: Julian Montemayor DPM, MS Date: 0 11/06/2023 Generated for Puneet powers/Guicho/Missmitting on: 0 04/13/2025 01:34 PM EDT
--- OUTSIDE RECORDS SUMMARY | 2025-04-12 15:45 | XMS_ITS | Encounter Summary ---
Author Organization [facility] tem Address [id number] [address] [place] [address] Care Team Providers Care Weather Forecaster Name Role Phone No Pcp, No Pcp Primary Care Provider Unavailabl e Reason for Referral * Vascular (Routine) - Authorized Specialty Diagnoses / Procedures Referred By Contbhavna t Referred To Contact Diagnoses Bilateral carotid artery stenosis Procedures Vas carotid duplex bilateral Marycarmen Muhammad DO [address] [place] [address] Phone: tel: fax: Referral ID Status Reason Start Date Expiration Date V isits Requested Visits Authorized [id number] Authorized 04/12/2025 04/12/2026 1 1 Encounter Details Date Type Department Care Team (Late st Contact Info) Description 04/12/2025 3:45 PM EDT Telemedicine [facility] Vascular [address] [address] Marycarmen Muhammad DO [address] [place] [address] Bilateral carotid artery stenosis Social History Tobacco Use Types Packs/Day Years Used Date Smoking Tobacco: Former Cigarettes Smokeless Tobacco: Never Alcohol Use Standard Drinks/Week Comments Not Currently 0 (1 standard drink = 0.6 oz pur e alcohol) Childcare Answer Date Recorded Childcare Unknown 03/04/2019 Employment Answer Date Recorded Employment Unknown 03/04/2019 Hunger Screening Answer Date Recorded Within the past 12 months we worried whether our food would run out before we got money to buy more. Never True 12/10/2024 Within the past 12 months th e food we bought just didn't last and we didn't have money to get more. Never True 12/10/2024 Comments Unknown Sex and Gender Information Value Date Recorded Sex Assigned at Not on file Legal Sex Female 6:00 PM EDT Gender Identity Not on file Sexual Orientation Not on file documented as of this encounter Plan of Treatment Upcoming Encounters Date Type Department Care Team (Late st Contact Info) Description 03/30/2026 9:00 AM EDT Appointment [facility] - Vascular [address] [place] [address] Marycarmen Muhammad, DO [address] [place] [address] 04/04/2026 3:15 PM EDT Telemedicine [facility] [address] [place] [address] Marycarmen Muhammad, DO [address] [place] [address] Scheduled Orders Name Type Priority Associated Diagnoses Orde r Schedule Vas carotid duplex bilateral Vascular Ultrasound Routine Bilateral carotid artery stenosis Expected: 04/12/2026 (Approximate), Expires: 04/12/2026 documented as of this encounter Goals Goal Patient Goal Type Associated Problems Recent Progress Patient-Stated? Author Home General Yes Doing, JOSE Zepeda Note: Evaluation of progress towards goal: Plan patient plans on DC to [facility] documented as of this encounter Visit Diagnoses Diagnosis Bilateral carotid artery stenosis Occlusion and stenosis of carotid artery without mention of cerebral infarction documented in this encounter Care Teams Weather Forecaster Relationship Specialty Start Date End Date No Pcp, [place] [address] PCP - General Family Medicine 12/09/24 documented as of this encounter
--- OUTSIDE RECORDS SUMMARY | 2025-04-13 13:35 | XMS_ITS | Clinical Summary ---
Author Organization [employer] tem Address [id number] [address] [place] [address] Care Team Providers Care Research Programmer Name Role Phone No Pcp, No Pcp Primary Care Provider Unavailabl e Allergies Active Allergy Reactions Criticality Noted Date Comments Adhesive Rash,Other (See Comments) Low 07/18/2022 Hydrocodone Bitartrate GI Disturbance Low Hydrocodone-Acetaminophen Nausea And Vom iting,Other (See Comments) Low 03/25/2017 Medications amLODIPine (NORVASC) 10 mg tablet Take 1 tablet (10 mg total) by mouth in the morning. Active clopidogreL (PLAVIX) 75 mg tablet Active insulin NPH (HumuLIN N,NovoLIN N) 100 unit/mL injection Inject 0.52 mL (52 Units total) under the skin. Active lisinopriL (PRINIVIL,ZESTR IL) 2.5 mg tablet Active busPIRone (BUSPAR) 5 mg tablet Take 1 tablet (5 mg total) by mouth 3 (three) times a day. Active docusate sodium (COLACE) 100 mg capsule Take 1 capsule (100 mg total) by mouth in the morning and 1 capsule (100 mg total) before bedtime. Active donepeziL (ARICEPT) 10 mg tablet Take 1 tablet (10 mg total) by mouth nightly. Active loperamide (IMODIUM) 2 mg capsule Take 1 capsule (2 mg total) by mouth as needed in the morning and 1 capsule (2 mg total) as needed at noon and 1 capsule (2 mg total) as needed in the evening and 1 capsule (2 mg total) as needed before bedtime for diarrhea. Active melatonin 1 mg tablet,chewable Chew and swallow. Active sertraline (ZOLOFT) 25 mg tablet Take 1 tablet (25 mg total) by mouth in the morning. Active liraglutide (VICTOZA 3-GALE SUBQ) Inject under the skin. Active acetaminophen (TYLENOL EXTRA STRENGTH) 500 mg tablet Take 2 tablets (1,000 mg total) by mouth every 6 (six) hours. 30 tablet 12/17/2024 Active famotidine (PEPCID) 20 mg tablet Take 1 tablet (20 mg total) by mouth in the morning and 1 tablet (20 mg total) before bedtime. 60 tablet 12/17/2024 Active gabapentin (NEURONTIN) 300 mg capsule Take 1 capsule (300 mg total) by mouth 3 (three) times a day. Active atorvastatin (LIPITOR) 40 mg tablet Take 1 tablet (40 mg total) by mouth. Active aspirin 81 mg Take 1 tablet (81 mg total) by mouth. Active Active Problems Problem Noted Date Diagnosed Date Hyperlipidemia 01/11/2025 Gangrene of toe 12/10/2024 DOLORES (acute kidney injury) 12/10/2024 Primary hypertension 12/10/2024 Dyslipidemia 12/10/2024 HFrEF (heart failure with reduced ejection fract ion) 12/10/2024 Type 2 diabetes mellitus wit h diabetic peripheral angiopathy and gangrene, with long-term current use of insulin 12/10/2024 PAD (peripheral artery disease) 12/10/2024 Alzheimer's dementia 12/10/2024 Acute on chronic systolic (congestive) heart juan c lure 04/26/2023 Peripheral vascular disorder due to diabetes amy litus 09/02/2020 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 01/25/2016 COPD (chronic obstructive pulmonary disease) 01/2015 Coronary atherosclerosis 07/11/2012 Overview (01/11/2025): MULTIPLE LAD STENTS: [id number] Diabetes mellitus 07/11/2012 Resolved Problems Problem Noted Date Diagnosed Date Resolved Date Necrotizing fasciitis 12/09/20242024 Encounters Date Type Department Care Team Description 04/12/2025 3:45 PM EDT Telemedicine [facility] Vascular [place] [address] Marycarmen Muhammad, Bilateral carotid artery stenosis 04/12/2025 Travel 04/07/2025 Telephone [facility] [address] [place] [address] Tressa Olmsteada 03/23/2025 7:54 AM EDT - 03/23/2025 11:59 PM EDT Hospital Encounter [facility] - Vascular [address] [place] [address] Marycarmen Muhammad, Diabetic peripheral vascular disease ([facility] Discharge Disposition: Home 03/23/2025 7:54 AM EDT - 03/23/2025 11:59 PM EDT Hospital Encounter [facility] - Vascular [address] [place] [address] Marycarmen Muhammad, Bilateral carotid artery stenosis Discharge Disposition: Home 03/23/2025 Travel from Last 3 Months Social History Tobacco Use Types Packs/Day Years Used Date Smoking Tobacco: Former Cigarettes Smokeless Tobacco: Never Tobacco Cessation:Counseling Given: Not Answered Alcohol Use Standard Drinks/Week Comments Not Currently [...] on file Sexual Orientation Not on file Last Filed Vital Signs Vital Sign Reading Time Taken Comments Blood Pressure 93/68 01/11/2025 1:48 PM EDT Pulse 91 01/11/2025 1:48 PM EDT Temperature 36.7 C (98 F) 12/17/2024 11:05 AM EDT Respiratory Rate 16 12/17/2024 11:05 AM EDT Oxygen Saturation 93% 12/17/2024 11:05 AM EDT Inhaled Oxygen Concentration - - Weight 103.4 kg (228 lb) 01/11/2025 1:48 PM EDT Height 169 cm (5' 6.54 ) 12/15/2024 3:15 PM EDT Body Mass Index 36.21 12/15/2024 3:15 PM EDT Plan of Treatment Upcoming Encounters Date Type Department Care Team (Late st Contact Info) Description 03/30/2026 9:00 AM EDT Appointment [facility] - Vascular [address] [place] [address] Marycarmen Muhammad, DO [id number] [place] [address] 04/04/2026 3:15 PM EDT Telemedicine [facility] [address] [place] [address] Marycarmen Muhammad, DO [id number] [place] [address] Health Maintenance Due Date Last Done Comments Diabetic Ophthalmology Exam 1955 Statin Use: Cardiovascular 1955 Statin Use: Diabetic 1955 Depression Screening 1968 Adult BMI Follow Up Plan 1974 Diabetic Foot Exam 1974 Zoster (Shingles) Vaccine (1 of 2) 2006 Fall Risk Screening 2021 COVID-19 Vaccine (2023-2 5 season) 2024 09/05/2021, 01/01/2021, 12/05/2020 Influenza Vaccine 05/24/2025 08/07/2021, , 08/28/2019, Additional history exists Adult BMI Screening 01/11/2026 01/11/2025 Tobacco Screening 01/25/2026 01/25/2025 DTaP,Tdap and Td Vaccines (2 - Tdap) 08/08/2031 08/08/2021 Goals Goal Patient Goal Type Associated Problems Recent Progress Patient-Stated? Author Home General Yes Doing, JOSE Zepeda Note: Evaluation of progress towards goal: Plan patient plans on DC to [facility] Medical Devices Not on file Procedures Procedure Name Priority Date/Time Associated Diagnosis Comments VASC ARTERIAL DOPPLER LOWER BILATERAL MULTI LEVEL/PVR Routine 03/23/2025 9:39 AM EDT Diabetic peripheral vascular disease (CMS-HCC) VASC CAROTID DUPLEX BILATERAL Routine 03/23/2025 9:39 AM EDT Bilateral carotid artery stenosis from Last 3 Months Results * Vas art doppler lwr bilat mult lev/PVR (03/23/2025 9:39 AM EDT) Anatomical Region Laterality Modality Vascular Bilateral Ultrasound 03/23/2025 11:0 9 AM EDT Narrative 03/24/2025 8:57 PM EDT Previous: Previous lower extremity arterial physiological exam performed: 12/12/2024; Right IRENE not available due to amputation at the mid calf level. Normal PVR waveforms. Left: Medial calcinosis, TBI not available due to transmetatarsal amputation. Normal PVR waveforms. Right: Essentially normal PVR waveform contour at the thigh and calf level. Ankle PVR and IRENE/TBI unobtainble due to mid calf amputation. No calf waveform augmentation noted. Multiphasic with diastolic flow reversal common femoral artery CW Doppler waveforms. Left: Essentially normal PVR waveform contour at all cuff levels. Borderline calf waveform augmentation noted. Audible PT and DP arterial Doppler signals despite occlusive cuff pressures exceeding >250mmHg. TBI is unotainable due to amputation. Multiphasic with diastolic flow reversal common femoral, PT and DP CW Doppler waveforms. Conclusions: RIGHT: Normal lower extremity arterial physiological examination at rest. Limited study due to below the knee amputation. LEFT: Waveform data is consistent with no significant arterial obstruction at rest. Procedure Note Juice Hannon MD - 03/24/2025 Previous: Previous lower extremity arterial physiological exam performed:12/12/2024; Right IRENE not available due to amputation at the mid calflevel. Normal PVR waveforms. Left: Medial calcinosis, TBI not availabledue to transmetatarsal amputation. Normal PVR waveforms. Right: Essentially normal PVR waveform contour at the thigh and calflevel. Ankle PVR and IRENE/TBI unobtainble due to mid calf amputation. Nocalf waveform augmentation noted. Multiphasic with diastolic flowreversal common femoral artery CW Doppler waveforms. Left: Essentially normal PVR waveform contour at all cuff levels.Borderline calf waveform augmentation noted. Audible PT and DP arterialDoppler signals despite occlusive cuff pressures exceeding >250mmHg. TBIis unotainable due to amputation. Multiphasic with diastolic flow reversal common femoral, PT and DP CWDoppler waveforms. Conclusions: RIGHT: Normal lower extremity arterial physiologicalexamination at rest. Limited study due to below the knee amputation.LEFT: Waveform data is consistent with no significant arterialobstruction at rest. Marycarmen Muhammad DO CV VASCULAR ORDERABLES Final Res ult * Vas carotid duplex bilateral (03/23/2025 9:39 AM EDT) Anatomical Region Laterality Modality Vascular Bilateral Ultrasound 03/23/2025 10:4 7 AM EDT Narrative 03/24/2025 8:55 PM EDT Right: Plaque with no significant ICA spectral Doppler or color flow disturbances; ICA 75/19 cm/sec. Antegrade vertebral artery flow. Left: Plaque with no significant ICA spectral Doppler or color flow disturbances; ICA 110/28 cm/sec. Antegrade vertebral artery flow. Conclusions: BILATERAL: Plaque without significant stenosis (<50%) of the internal carotid artery. Antegrade vertebral artery flow. Procedure Note Juice Hannon MD - 03/24/2025 Right: Plaque with no significant ICA spectral Doppler or color flowdisturbances; ICA 75/19 cm/sec. Antegrade vertebral artery flow. Left: Plaque with no significant ICA spectral Doppler or color flowdisturbances; ICA 110/28 cm/sec. Antegrade vertebral artery flow. Conclusions: BILATERAL: Plaque without significant stenosis (<50%) of theinternal carotid artery. Antegrade vertebral artery flow. Marycarmen Muhammad DO CV VASCULAR ORDERABLES Final Res ult from Last 3 Months Insurance MEDICAID [place] MEDICARE Advance Directives * Full Code (Latest Code Status on File) Date Activated Date Inactivated Comments 12/09/2024 11:13 PM 12/17/2024 5:52 PM Care Teams Research Programmer Relationship Specialty Start Date End Date No Pcp, [place] [address] PCP - General Family Medicine 12/09/24
--- OUTSIDE RECORDS SUMMARY | 2025-04-13 13:35 | XMS_ITS | Encounter Summary ---
Author Organization [employer] tem Address [id number] [address] [place] [address] Care Team Providers Care High School Social Studies Tutor Name Role Phone No Pcp, No Pcp Primary Care Provider Unavailabl e Encounter Details Date Type Department Care Team (Late st Contact Info) Description 12/21/2024 Telephone [facility] [address] [place] [address] Mimi Hood MD [address], [facility] [address] [place] [address] Social History Tobacco Use Types Packs/Day Years [...] on file documented as of this encounter Miscellaneous Notes * Telephone Encounter - Mariposa Goddard - 12/21/2024 11:15 AM EDT Rosa from [facility] wanted to no how long should patient has to use her Knee Imbolizer she had a Bka last week she can be reached at [phone]. Please advise * Telephone Encounter - Brianna Iverson CMA - 12/21/2024 11:15 AM EDT Hari Hood, Please advise on the pt's instructions. I will look in the notes as well. The pt has an PO f/u appton 01/18/25. documented in this encounter Plan of Treatment Upcoming Encounters Date Type Department Care Team (Late st Contact Info) Description 03/30/2026 9:00 AM EDT Appointment [facility] - Vascular [address] [place] [address] Marycarmen Muhammad, DO [address] [place] [address] 04/04/2026 3:15 PM EDT Telemedicine [facility] [address] [place] [address] Marycarmen Muhammad, DO [address] [facility] [address] [place] [address] documented as of this encounter Goals Goal Patient Goal Type Associated Problems Recent Progress Patient-Stated? Author Home General Yes Doing, JOSE Zepeda Note: Evaluation of progress towards goal: Plan patient plans on DC to [facility] documented as of this encounter Visit Diagnoses Not on filedocumented in this encounter Care Teams [employer] Social Studies Tutor Relationship Specialty Start Date End Date No Pcp, [place] [address] PCP - General Family Medicine 12/09/24 documented as of this encounter
--- OUTSIDE RECORDS SUMMARY | 2025-04-13 13:35 | XMS_ITS | Clinical Summary ---
Author Organization [facility] Address [address] [place] [address] Care Team Providers Care Supervisor Shed Workers Name Role Phone Unavailable Primary Care Provider Unavailabl e Allergies Active Allergy Reactions Criticality Noted Date Comments Adhesive 07/18/2022 Hydrocodone Bitartrate GI intolerance 1 Hydrocodone-Acetaminophen Nausea And Vomiting Low 0 03/25/2017 Medications clopidogrel (Plavix) 75 mg tablet Take 75 mg by mouth in the morning. Active metFORMIN (Glucophage) 1,000 mg tablet Take 1,000 mg by mouth with breakfast and with evening meal. Active atorvastatin (Lipitor) 80 mg tabletIndication s:NSTEMI (non-ST elevated myocardial infarction) (CMS/HCC),Acute on chronic systolic (congestive) heart failure (CMS/HCC) Take 1 tablet (80 mg) by mouth at bedtime. 30 tablet 3 3 Active Additional Information Patient taking differently: 20 mgoral Nightly, Reported on 06/12/2023 insulin glargine (Lantus) 100 unit/mL injectionIndicat ions:NSTEMI (non-ST elevated myocardial infarction) (CMS/HCC),Acute on chronic systolic (congestive) heart failure (CMS/HCC) Inject 20 Units under the skin in the morning and at bedtime. 10 mL 12 3 Active dapagliflozin propanediol (Farxiga) 10 mgIndications:he art failure Take 1 tablet (10 mg) by mouth in the morning. Do not start before May 05, 2023. 30 tablet 11 3 Active metoprolol succinate XL (Toprol-XL) 50 mg 24 hr tabletIndication s:NSTEMI (non-ST elevated myocardial infarction) (CMS/HCC),Acute on chronic systolic (congestive) heart failure (CMS/HCC) Take 1 tablet (50 mg) by mouth in the morning. Do not crush or chew. Do not start before May 05, 2023. 30 tablet 11 3 Active QUEtiapine (SEROquel) 25 mg tabletIndication s:NSTEMI (non-ST elevated myocardial infarction) (CMS/HCC),Acute on chronic systolic (congestive) heart failure (CMS/HCC) Take 1 tablet (25 mg) by mouth if needed in the morning and at bedtime (for agitation and sleep). 60 tablet 3 Active sacubitril-valsa rtan (Entresto) 24-26 mg tabletIndication s:NSTEMI (non-ST elevated myocardial infarction) (CMS/HCC),Acute on chronic systolic (congestive) heart failure (CMS/HCC) Take 1 tablet by mouth in the morning and at bedtime for 183 doses. 12 3 Active spironolactone (Aldactone) 25 mg tabletIndication s:NSTEMI (non-ST elevated myocardial infarction) (CMS/HCC),Acute on chronic systolic (congestive) heart failure (CMS/HCC) Take 1 tablet (25 mg) by mouth in the morning. Do not start before May 05, 2023. 30 tablet 3 3 Active amLODIPine (Norvasc) 10 mg tablet Take 10 mg by mouth in the morning. Active Active Problems Problem Noted Date Diagnosed Date Dyspnea 06/12/2023 06/12/2023 Neuropathic pain 06/12/2023 06/12/2023 NSTEMI (non-ST elevated myocardial infarction) 0 04/26/2023 Acute cystitis without hematuria 04/26/2023 Hypoglycemia 04/26/2023 Traumatic rhabdomyolysis 04/26/2023 Acute on chronic systolic (congestive) heart juan c lure 04/26/2023 Acute respiratory failure with hypoxia 3 06/12/2023 Cognitive communication deficit 11/13/2022 06/12/2023 History of falling 11/13/2022 06/12/2023 Hypertension 11/13/2022 06/12/2023 Moderate protein-calorie malnutrition 11/13/2022 06/12/2023 Muscle weakness (generalized) 11/13/2022 Severe sepsis with septic shock 11/13/2022 06/12/2023 Unspecified abnormalities of gait and mobility 0 11/13/2022 06/12/2023 Unspecified osteoarthritis, unspecified site 06/12/2023 Vertigo of central origin 11/13/20222022 Coronary artery disease invo lving [place] tribe coronary artery of [place] tribe heart without angina pectoris 07/18/2022 Assessment & Plan (07/18/2022 2:11 PM EDT): Continued goal-directed medical therapy, aspirin, statin, Plavix, metoprolol and lisinopril No concerning symptoms currently Continue risk factor modifications including heart healthy diet, regular exercise as tolerated and she is trying to quit smoking. Hyperlipidemia, mixed 07/18/2022 Assessment & Plan (07/18/2022 2:11 PM EDT): Continue statin Edema of lower extremity 07/18/2022 Chronic diastolic heart failure 07/18/2022 Assessment & Plan (07/18/2022 2:09 PM EDT): Continues to take lasix daily with prn [...] in 6 months or earlier if needed Tobacco dependence 07/18/2022 Assessment & Plan (07/18/2022 2:12 PM EDT): 10-minute discussion with patient regarding smoking cessation, she denies need for prescription for Wellbutrin, she refuses Chantix related to she already has nightmares, and she does not want nicotine gum because of dentures. States she is going to get nicotine patches that she is can order from the TV for free. 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 03/03/2019 06/12/2023 History of hysterectomy 01/15/2018 06/12/20 23 History of coronary artery bypass surgery 201606/12/2023 Polyneuropathy due to type 2 diabetes mellitus 0 04/05/2017 06/12/2023 Closed fracture of hip 04/03/2017 3 Closed fracture of trochanter of right femur 01/201706/12/2023 Anxiety 03/19/2017 06/12/2023 Non-pressure chronic ulcer o f other part of right foot with unspecified severity 10/26/2016 06/12/2023 Carpal tunnel syndrome 03/10/2016 3 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 01/25/2016 06/12/2023 Asthma without status asthmaticus 06/27/2015 06/12/2023 Depression 06/27/2015 06/12/2023 COPD (chronic obstructive pulmonary disease) 01/201506/12/2023 Tobacco user 06/27/2015 06/12/2023 Osteoarthrosis 06/27/2015 06/12/2023 Type 2 diabetes mellitus without complication 06/12/2023 Chest pain 07/11/2012 06/12/2023 Dizziness and giddiness 07/11/2012 06/12/20 23 Malaise and fatigue 07/11/2012 06/12/2023 Metabolic syndrome X 07/11/2012 06/12/2023 Encounters Date Type Department Care Team Description 01/25/2025 Telephone [facility] Infectious [facility] [address], [address] [place] [address] Dena Oreilly CNP 01/12/2025 2:20 PM EDT Telemedicine [facility] [address], [address] [place] [phone] Dena Oreilly CNP Bacteremia (Primary Dx); Streptococcal infection; Necrotizing fasciitis (CMS/HCC); Uncontrolled type 2 diabetes mellitus with hyperglycemia ([facility]/HCC) 01/12/2025 Telephone [facility] [address], [address] [place] [phone] Dena Oreilly CNP from Last 3 Months Social History Tobacco Use Types Packs/Day Years Used Date Smoking Tobacco: Never Smokeless Tobacco: Never Tobacco Cessation:Counseling Given: Not Answered Alcohol Use Standard Drinks/Week Comments Not Currently 0 (1 standard drink = 0.6 oz pur e alcohol) Humiliation, Afraid, Rape, and Kick questionnair e Answer Date Recorded Within the last year, have y ou been afraid of your partner or ex-partner? No 04/26/2023 Emotionally Abused Not on file 04/26/2023 Physically Abused Not on file 04/26/2023 Sexually Abused Not on file 04/26/2023 Overall Financial Resource Strain (CARDIA) Answe r Date Recorded How hard is it for you to pa y for the very basics like food, housing, medical care, and heating? Not hard at all 04/26/2023 [place] Safety & Environment Answer Date Rec orded Within the last year, have y ou been afraid of your partner or ex-partner? No 04/26/2023 Emotionally Abused Not on file 04/26/2023 Physically Abused Not on file 04/26/2023 Sexually Abused Not on file 04/26/2023 In the past year have you be en physically or sexually abused? Unrecognized value 04/26/2023 Transportation Answer Date Recorded In the past 12 months, has l ack of transportation kept you from medical appointments or from getting medications? No 04/26/2023 Lack of Transportation (Non-Medical) Not on file 04/26/2023 Housing Stability Vital Sign Answer Enzo e Recorded Unable to Pay for Housing in the Last Year Not o n file 04/26/2023 Number of Places Lived in the Last Year Not on f ile 04/26/2023 In the last 12 months, was t here a time when you did not have a steady place to sleep or slept in a snf (including now)? No 04/26/2023 Hunger Vital Sign Answer Date Recorded Within the past 12 months, y ou worried that your food would run out before you got the money to buy more. Never true 04/26/20 23 Ran Out of Food in the Last Year Not on file 04/26/2023 Comments Unknown Sex and Gender Information Value Date Recorded Sex Assigned at Not on file Legal Sex Female 9:35 PM EDT Gender Identity Not on file Sexual Orientation Not on file Last Filed Vital Signs Vital Sign Reading Time Taken Comments Blood Pressure 96/52 06/12/2023 1:28 PM EDT Pulse 81 06/12/2023 1:28 PM EDT Temperature 36.2 C (97.2 F) 05/06/2023 9:11 AM EDT Respiratory Rate 21 05/06/2023 3:30 PM EDT Oxygen Saturation 99% 06/12/2023 1:28 PM EDT Inhaled Oxygen Concentration - - Weight 82.1 kg (181 lb) 06/12/2023 1:28 PM EDT Height 167.6 cm (5' 6 ) 06/12/2023 1:28 PM EDT Body Mass Index 29.21 06/12/2023 1:28 PM EDT Plan of Treatment Health Maintenance Due Date Last Done Comments CT Colonography 1956 FIT-DNA 1956 FIT 1956 FOBT 1955 Medicare Annual Wellness (AWV) 1955 Sigmoidoscopy 1956 Diabetes: Retinopathy Screening 1966 Depression Screening 1968 Adult Tetanus 1978 Zoster Vaccines (1 of 2) 2006 Fall Risk Screening 2021 Diabetes: Urine Protein Screening 09/02/2021 09/02/2020 Diabetes: Hemoglobin A1C 07/27/2023 04/26/2023 COVID-19 Vaccine ( season) 2024 09/05/2021, 01/01/2021, 01/01/2021, Additional history exists Mammogram 07/30/2024 07/30/2022 Influenza Vaccine (#1) 2025 3, 08/07/2021, 08/30/2020, Additional history exists Colonoscopy 12/11/2025 12/12/2015 Colorectal Cancer Screening 12/11/2025 Pneumococcal Vaccine: 50+ Years Completed 01/02/2023, 11/16/2022 HIB Vaccines Aged Out No longer eligi ble based on patient's age to complete this topic HPV Vaccines Aged Out No longer eligi ble based on patient's age to complete this topic IPV Vaccines Aged Out No longer eligi ble based on patient's age to complete this topic Meningococcal B Vaccine Aged Out No l onger eligible based on patient's age to complete this topic Meningococcal Vaccine Aged Out No javi farhana eligible based on patient's age to complete this topic Rotavirus Vaccines Aged Out No longer eligible based on patient's age to complete this topic Procedures Procedure Name Priority Date/Time Associated Diagnosis Comments HEMOGLOBIN A1C Add-On 04/26/2023 5:35 PM EDT from Last 3 Months or Most Recently Relevant to Health Maintenance Results * (ABNORMAL) Hemoglobin A1c (04/26/2023 5:35 PM EDT) Hemoglobin A1C 9.0(H) 4.0 - 6.0 % 04/28/2023 3:29 PM EDT [facility] ([facility]) Estimated Average Glucose 212 mg/dL 04/28/2023 3:29 PM EDT [facility] ([facility]) Blood Venous blood specimen / Unknown Arterial Line / Unknown 04/26/2023 5:35 PM EDT 04/26/2023 5:40 PM EDT us Ofe Little MD LAB BLOOD ORDERABLES Final Result [facility] ([facility]) [address] [place] [address] from Last 3 Months or Most Recently Relevant to Health Maintenance Insurance MEDICARE Advance Directives * Full Code (Latest Code Status on File) Date Activated Date Inactivated Comments 04/26/2023 2:24 PM 05/06/2023 7:19 PM
--- OUTSIDE RECORDS SUMMARY | 2025-04-13 13:35 | XMS_ITS | Encounter Summary ---
Author Organization [facility] [facility] Address [id number] [address] [place] [address] Care Team Providers Care Farm Consultant Name Role Phone No Pcp, No Pcp Primary Care Provider Unavailabl e Encounter Details Date Type Department Care Team (Latest Contact Info) Description 04/12/2025 Travel Social History Tobacco Use Types Packs/Day Years [...] Info) Description 03/30/2026 9:00 AM EDT Appointment [facility] - Vascular [address] [place] [phone] Marycarmen Muhammad DO [address] [facility] [address] [address] [place] [address] 04/04/2026 3:15 PM EDT Telemedicine [facility] [place] [address] Marycarmen Muhammad, DO [address] [place] [address] documented as of this encounter Goals Goal Patient Goal Type Associated Problems Recent Progress Patient-Stated? Author Home General Yes Doing, JOSE Zepeda Note: Evaluation of progress towards goal: Plan patient plans on DC to [facility]PR documented as of this encounter Visit Diagnoses Not on filedocumented in this encounter Care Teams Farm Consultant Relationship Specialty Start Date End Date No Pcp, [place] [address] PCP - General Family Medicine 12/09/24 documented as of this encounter
--- OUTSIDE RECORDS SUMMARY | 2025-04-13 13:35 | XMS_ITS | Encounter Summary ---
Author Organization [employer] Address [id number] [address] [place] [address] Care Team Providers Care Numerical Control Operator Name Role Phone No Pcp, No Pcp Primary Care Provider Unavailabl e Encounter Details Date Type Department Care Team (Late st Contact Info) Description 04/07/2025 Telephone [facility] [address] [place] [address] Zuleyma Olmstead Social History Tobacco Use Types Packs/Day Years [...] encounter Miscellaneous Notes * Telephone Encounter - Zuleyma Olmstead - 04/07/2025 9:27 AM EDT Caller asking if pt is okay to r/s for Dr. Mhuammad next appt in May in [place]. Upcoming OV is a 3m f/u for a doppler lower lev PVR bilateral done 03/24. I looked over note from doppler with one of the MA's and told Azam that someone with Dr. Muhammad clinical team would have to call her back as we are unsure if it is okay to wait that long and Is in surgery today. Please advise Azam's number is [phone] to call back * Telephone Encounter - Brianna Riggs LPN - 04/07/2025 9:27 AM EDT Patient will be scheduled at the [place] office with our STRESS TEST TECHNICIAN (Winter) in April. * Telephone Encounter - Zuleyma Olmstead - 04/07/2025 9:27 AM EDT Patient is scheduled for a virtual visit with on 04/12 documented in this encounter Plan of Treatment Upcoming Encounters Date Type Department Care Team (Late st Contact Info) Description 03/30/2026 9:00 AM EDT Appointment [facility] - Vascular [address] [place] [phone] Marycarmen Muhammad DO [address] [facility] [address] [place] [address] 04/04/2026 3:15 PM EDT Telemedicine [facility] Vascular [place] [address] [place] [address] Marycarmen Muhammad DO [address] [facility] [address] [place] [address] documented as of this encounter Goals Goal Patient Goal Type Associated Problems Recent Progress Patient-Stated? Author Home General Yes Jessica, JOSE Zepeda Note: Evaluation of progress towards goal: Plan patient plans on DC to IPR documented as of this encounter Visit Diagnoses Not on filedocumented in this encounter Care Teams Numerical Control Operator Relationship Specialty Start Date End Date No Pcp, [place] [address] PCP - General Family Medicine 12/09/24 documented as of this encounter
--- OUTSIDE RECORDS SUMMARY | 2025-04-13 13:37 | XMS_ITS | Encounter Summary ---
Author Organization [facility] Address [address] [place] [facility] [place] [address] Care Team Providers Care Public Speaking Professor Name Role Phone Peter Santos MD Unavailable [phone] Unallocated, Noms Provider Primary Care Provi peter Encounter Details Date Type Department Care Team (Late st Contact Info) Description 04/10/2023 Abstract [facility] [address] [place] [address] Peter Santos MD [address] [place], [place] [id number] Social History Tobacco Use Types Packs/Day Years Used Date Smoking Tobacco: Never Assessed Comments Unknown Sex and Gender Information Value Date Recorded Sex Assigned at Not on file Legal Sex Female 6:49 PM EDT Gender Identity Not on file Sexual Orientation Not on file documented as of this encounter Plan of Treatment Not on file documented as of this encounter Visit Diagnoses Not on filedocumented in this encounter Care Teams Public Speaking Professor Relationship Specialty Start Date End Date Peter Santos MD [address] [place] [address] PCP - Alex RIVERA 02/21/23 04/22/23 Unallocated, Noms MD Allie [address] [place] [address] PCP - General 03/06/23 documented as of this encounter
--- OUTSIDE RECORDS SUMMARY | 2025-04-13 13:37 | XMS_ITS | Encounter Summary ---
Author Organization [facility] Address [address] [place] [address] Care Team Providers Care Digital Retoucher Name Role Phone Unallocated, Noms Provider Primary Care Provi peter Encounter Details Date Type Department Care Team (Late st Contact Info) Description 03/23/2024 Abstract [facility] [address] [place] [address] Unallocated, Karthik [place] [address] Social History Tobacco Use Types Packs/Day Years [...] on filedocumented in this encounter Care Teams Digital Retoucher Relationship Specialty Start Date End Date Unallocated, [place] [address] PCP - General 03/06/23 documented as of this encounter
--- OUTSIDE RECORDS SUMMARY | 2025-04-13 13:37 | XMS_ITS | Encounter Summary ---
Author Organization [facility] Address [address] [place] [address] Care Team Providers Care Insurance Producer Name Role Phone Unallocated, Noms Provider Primary Care Provi peter Encounter Details Date Type Department Care Team (Late st Contact Info) Description 08/31/2024 Abstract [facility] [address] [place] [address] Unallocated, Karthik [place] [address] Social History Tobacco Use Types Packs/Day Years [...] on filedocumented in this encounter Care Teams Insurance Producer Relationship Specialty Start Date End Date Unallocated, [place] [address] PCP - General 03/06/23 documented as of this encounter
--- OUTSIDE RECORDS SUMMARY | 2025-04-13 13:37 | XMS_ITS | Encounter Summary ---
Author Organization [facility] Address [address] [facility] [address] Care Team Providers Care Digital Content Producer Name Role Phone Unallocated, Noms Provider Primary Care Provi peter Encounter Details Date Type Department Care Team (Late st Contact Info) Description 11/24/2024 Abstract [facility] [address] [place] [address] Unallocated, [place] [address] Social History Tobacco Use Types Packs/Day Years [...] filedocumented in this encounter Care Teams Digital Content Producer Relationship Specialty Start Date End Date Unallocated, [place] [address] PCP - General 03/06/23 documented as of this encounter
--- OUTSIDE RECORDS SUMMARY | 2025-04-13 13:37 | XMS_ITS | Encounter Summary ---
Author Organization [facility] Address [address] [place] [address] Care Team Providers Care Retarder Operator Name Role Phone Peter Santos MD Unavailable Unallocated, Noms Provider Primary Care Provi peter Encounter Details Date Type Department Care Team (Late st Contact Info) Description 04/08/2023 Orders Only [facility] [address] [place] [phone] Karlie Segundo, DO [address] [place], [place] [id number] Social History Tobacco Use Types Packs/Day Years Used Date Smoking Tobacco: Never Assessed Comments Unknown Sex and Gender Information Value Date Recorded Sex Assigned at Not on file Legal Sex Female 6:49 PM EDT Gender Identity Not on file Sexual Orientation Not on file documented as of this encounter Plan of Treatment Not on file documented as of this encounter Procedures Procedure Name Priority Date/Time Associated Diagnosis Comments ELECTROCARDIOGRAM REPORT Routine 023 12:[address] HEAD/BRAIN W & WO CONTRAST Routine 04/06/2023 11:55 AM EDT XR CHEST 1 VIEW Routine 04/06/2023 11:54 AM EDT documented in this encounter Results * Electrocardiogram Report (04/06/2023 12:08 PM EDT) us Unknown Practice A IN CLINIC/BEDSIDE ORDERABLES Final Result * CT HEAD/BRAIN W & WO CONTRAST (04/06/2023 11:55 AM EDT) Anatomical Region Laterality Modality Radiographic Rabia ging us Karlie Segundo DO IMG XR PROCEDURES Final Resu lt * XR chest 1 view (04/06/2023 11:54 AM EDT) Anatomical Region Laterality Modality Chest Radiographic Rabia ging us Karlie Segundo DO IMG XR PROCEDURES Final Resu lt documented in this encounter Visit Diagnoses Not on filedocumented in this encounter Care Teams Retarder Operator Relationship Specialty Start Date End Date Peter Santos MD [address] [facility] [address] [place] [address] PCP - Alex RIVERA 02/21/23 04/22/23 Unallocated, Noms Provider, [address] [place], [place] [id number] PCP - General 03/06/23 documented as of this encounter
--- OUTSIDE RECORDS SUMMARY | 2025-04-13 13:37 | XMS_ITS | Encounter Summary ---
Author Organization [facility] Address [address] [place] [address] Care Team Providers Care Television Presenter Name Role Phone Unallocated, Noms Provider Primary Care Provi peter Encounter Details Date Type Department Care Team (Late st Contact Info) Description 03/23/2024 Abstract [facility] [address] [place] [address] Unallocated, Karthik [place] [address] Social History Tobacco Use Types Packs/Day Years [...] on filedocumented in this encounter Care Teams Television Presenter Relationship Specialty Start Date End Date Unallocated, [place] [address] PCP - General 03/06/23 documented as of this encounter
--- OUTSIDE RECORDS SUMMARY | 2025-04-13 13:37 | XMS_ITS | Patient Health Record ---
Author Organization [facility] Address [address] [place] [address] [place] [address] Care Team Providers Care Steel Placer Name Role Phone Petra Raymond Primary Care Provider Unavailabl e Abrahan Cintron Unavailable [phone] Reason For Referral No Information Plan Of Treatment No Information Insurance Providers Payer Name Payer Address Payer Phone Subscriber Number Group Number Insured Name Patient Relationship to Insured Coverage Start Date Coverage End Date [employer] [address] [place] [address] [id number] Kiara Blanc Self - patient is the insured
--- OUTSIDE RECORDS SUMMARY | 2025-04-13 13:37 | XMS_ITS | Encounter Summary ---
Author Organization [facility] Address [address] [place] [address] Care Team Providers Care Endodontist Name Role Phone Unallocated, Noms Provider Primary Care Provi peter Encounter Details Date Type Department Care Team (Late st Contact Info) Description 12/18/2023 Abstract [facility] [address] [place] [address] Unallocated, Karthik [place] [address] Social History Tobacco Use Types Packs/Day Years [...] on filedocumented in this encounter Care Teams Endodontist Relationship Specialty Start Date End Date Unallocated, [place] [address] PCP - General 03/06/23 documented as of this encounter
--- OUTSIDE RECORDS SUMMARY | 2025-04-13 13:37 | XMS_ITS | Encounter Summary ---
Author Organization [facility] Address [address] [facility] [place] [address] Care Team Providers Care Project Manager Industrial Name Role Phone Peter Santos MD Unavailable [phone] Unallocated, Noms Provider Primary Care Provi peter Encounter Details Date Type Department Care Team (Late st Contact Info) Description 04/08/2023 Abstract [facility] [address] [place] [address] Peter Santos MD [address] [place], [place] [id number] Social History Tobacco Use Types Packs/Day Years [...] on filedocumented in this encounter Care Teams Project Manager Industrial Relationship Specialty Start Date End Date Peter Santos MD [address] [place] [address] PCP - Alex RIVERA 02/21/23 04/22/23 Unallocated, Noms MD Allie [address] [place] [address] PCP - General 03/06/23 documented as of this encounter
--- OUTSIDE RECORDS SUMMARY | 2025-04-13 13:37 | XMS_ITS | Encounter Summary ---
Author Organization [facility] Address [address] [facility] [place] [address] Care Team Providers Care Industrial Custodian Name Role Phone Unallocated, Jarad Provider Primary Care Provi peter Encounter Details Date Type Department Care Team ([facility] st Contact Info) Description 03/01/2025 Abstract [facility] DEPARTMENT [address] [place] [address] Unallocated, [place] [address] Social History Tobacco Use Types Packs/Day Years [...] on filedocumented in this encounter Care Teams Industrial Custodian Relationship Specialty Start Date End Date Unallocated, Jarad Kelley MD [address] [place] [address] PCP - General 03/06/23 documented as of this encounter
--- OUTSIDE RECORDS SUMMARY | 2025-04-13 13:37 | XMS_ITS | Encounter Summary ---
Author Organization [facility] Address [address] [facility] [place] [address] Care Team Providers Care Numerical Control Operator Name Role Phone Unallocated, Noms Provider Primary Care Provi peter Encounter Details Date Type Department Care Team (Late st Contact Info) Description 03/09/2024 Abstract [facility] [address] [place] [address] Unallocated, [place] [address] Social History Tobacco Use Types Packs/Day Years [...] Operator Relationship Specialty Start Date End Date Unallocated, [place] [address] PCP - General 03/06/23 documented as of this encounter
--- OUTSIDE RECORDS SUMMARY | 2025-04-13 13:37 | XMS_ITS | Patient Health Record ---
Author Organization [facility] [place] Address [address] [place] [address] Care Team Providers Care Operations Plant Attendant Name Role Phone None, Unknown or Primary Care Provider Unavailab le Results Component Value Reference Range Notes CA segmental UE or LE CRHISTY (N ot yet reviewed by provider) Interpretation: Performing Lab: Notes/Report: Source Facility: [place] [address] Cardiology Report Signed Patient: EMILY HARO MR#: [id number] : 1955 Acct:[id number] Age/Sex: 69 / F ADM Date: 12/08/24 Loc: CARD Attending Dr: Aneesh Barker Ordering Physician: Aneesh Barker Date of Service: 12/08/24 Procedure(s): CA segmental UE or LE CHRISTY Accession Number(s): [id number] cc: Aneesh Barker; Physician,Non-Staff MIsidro [facility] Test Date: 2024-12-08 Pat Name: EMILY HARO Department: Room: - Gender: Female Gin Inspector: : 1955 Requested By: Aneesh Barker Order Number: [id number] Jordy MD: JUANPABLO PALMER M.D. Interpretive Statements Summary of the findings: Right leg: IRENE= 1.49; TBI= 0.47. Doppler waveforms demonstrate monophasic flow at the posterior tibial and dorsalis pedis arteries. Left leg: IRENE= 1.40; TBI= 0. Doppler waveforms demonstrate no significant flow at the posterior tibial artery and monophasic flow in the dorsalis pedis artery. Segmental pressures: Segmental pressures show calcific right dorsalis pedis and significant right sided infrapopliteal disease and no left sided posterior tibialis flow. Pulse volume recordings: PVRs at the high thigh, below knee levels show normal waveforms; at the ankle levels show dampnened waveforms. Conclusion: Right and left ankle-brachial indices are suggestive of calcified right sided below knee vessel and normal overall left sided arterial flow at rest. Toe-brachial indices are suggestive of PAD bilaterally. Segmental pressures show calcific right dorsalis pedis and significant right sided infrapopliteal disease and no left sided posterior tibialis flow. Pulse volume recordings indicate reduced resting distal arterial flow. The study shows evidence of mainly distal PAD involving the right infrapopliteal arteries and with likely occluded left posterior tibialis artery. Electronically Signed On 12-08-2024 19:23:53 EDT by JUANPABLO PALMER M.D. Dictated By: JUANPABLO PALMER Signed By: 12/08/24192312/08/241923 DD/ 0948 TD/TT: Curtain Cutter Hand: [place] [address] Cardiology Report Signed Patient: Rylan HARO MR#: [id number] : 1955 Acct:[id number] Age/Sex: 69 / F ADM Date: 12/08/24 Loc: CARD Attending Dr: Aneesh Barker Ordering Physician: Aneesh Barker Date of Service: 12/08/24 Procedure(s): CA seg mental UE or LE CHRISTY Accession Number(s): [id number] cc: Aneesh Barker; Physician,Non-Staff Vera [facility] Test Date: 2024-12-08 Pat Name: EMILY ALVARES Department: Room: - Gender: Female Gin Inspector: : 1955 Requ ested By: Aneesh Barker Order Number: [id number] Reading MD: JUANPABLO PALMER M.D. Interpretive Statements Summary of the findings: Right leg: IRENE= 1.49 ; TBI= 0.47. Doppler waveforms demonstrate monophasic flow at the posterio r tibial and dorsalis pedis arteries. Left leg: IRENE= 1.40; TBI= 0. Doppler waveforms demonstrate no significant flow at the posterio r tibial artery and monophasic flow in the dorsalis pedis artery. Segmental pressures: Segmental pressures show calcific right dorsalis pedis and significant righ t sided infrapopliteal disease and no left sided posterior tibialis flow. Pulse volume recordi ngs: PVRs at the high thigh, below knee levels show normal waveforms; at the ankle levels show dampnened waveforms. Conclusion: Right and left ankle -brachial indices are suggestive of calcified right sided below knee vessel an d normal overall left sided arterial flow at rest. Toe-brachial indices are suggestive of PAD bilaterally. Segmental pressures show calcific right dorsalis pedis and significant right sided infrapopliteal disease and no left sided posterior tibialis flow. Pulse volume recordings indicate reduced res ting distal arterial flow. The study shows evid ence of mainly distal PAD involving the right infrapopliteal arter ies and with likely occluded left posterior tibialis artery. Electronically Maira d On 12-08-2024 19:23:53 EDT by JUANPABLO PALMER M.D. Dictated By: JUANPABLO PALMER Signed By: 12/08/24192312/08/241923 DD/ TD/TT: Curtain Cutter Hand: XR foot RT min 3V (Not yet r eviewed by provider) Interpretation: Performing Lab: Notes/Report: Source Facility: [place] [address] [place] [address] XRay Report Signed Patient: EMILY HARO MR#: [id number] : 1955 Acct:[id number] Age/Sex: 69 / F ADM Date: 11/11/24 Loc: WC Attending Dr: Aneesh Barker Ordering Physician: Aneesh Barker Date of Service: 11/11/24 Procedure(s): XR foot RT min 3V Accession Number(s): [id number] cc: Aneesh Barker; Physician,Non-Staff MIsidro The [address] [address] Patient Name: EMILY HARO MRN: [id number] date: 1955 Sex: F Assigned Patient Location: Current Patient Location: Accession/Order Number: [id number] Exam Date: 11/11/2024 12:03 Report Date: 11/11/2024 12:07 At the request of: ANEESH BARKER Procedure: XR foot RT min 3V RIGHT FOOT - 3 views CLINICAL DATA: Wound at the second and third toes. COMPARISON: 07/28/2023 AP, lateral and oblique views were obtained. There is no acute fracture or dislocation. No obvious bony destruction is noted within limits of positioning of the toes. There is spurring at the dorsal tarsals. Calcaneal spurs are present. There is no significant soft tissue swelling. Atherosclerotic disease is visualized.. XR/XR foot RT min 3V IMPRESSION: NO ACUTE BONY FINDINGS. Impression dictated by: Rosalee Vargas M.D.11/11/2024 12:07 PM Dictation Location: [place] [address] Electronically authenticated by: [id number] Y Date: 11/11/2024 12:07 Dictated By: Rosalee Vargas M.D. Signed By: 11/11/24 1210 DD/ 1207 TD/TT: Curtain Cutter Hand: [place] [address] XRay Report Signed Patient: Rylan HARO MR#: [id number] : 1955 Acct:[id number] Age/Sex: 69 / F ADM Date: 11/11/24 Loc: Attending Dr: Aneesh Barker Ordering Physician: Aneesh Barker Date of Service: 11/11/24 Procedure(s): XR foot RT min 3V Accession Number(s): [id number] cc: Aneesh Barker; Physician,Non-Staff Vera The [address] [address] Patient Name: EMILY HARO MRN: [id number] date: 1955 Sex: F Assigned Patient Location: Current Patient Location: Accession/Order Erika er: [id number] Exam Date: 11/11/2024 12:03 Report Date: 11/11/2024 12:07 At the request of: ANEESH BARKER Procedure: XR foot RT min 3V RIGHT FOOT - 3 views CLINICAL DATA: Wound at the second and third toes. COMPARISON: 07/28/2023 AP, lateral and obli que views were obtained. There is no acute fracture or dislocation. No obvi ous bony destruction is noted within limits of positioning of the t oes. There is spurring at the dorsal tarsals. Calcaneal spurs are present. T here is no significant soft tissue swelling. Atherosclerotic dise ase is visualized.. X R/XR foot RT min 3V IMPRESSION: NO ACUTE BONY FINDINGS. Impression dictated by: Rosalee Vargas M.D.11/11/2024 12:07 PM Dictation Location: [place] [address] Electronically authe nticated by: [id number] Y Date: 11/11/2024 12:07 Dictated By: Rosalee Vargas M.D. 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) Active confirmed Problem Weakness (48059246) Weakness (R53.1) Active confirmed Problem Hypertension (46122258) Hypertension (I10) Active confirmed Problem Atrial fibrillation (disorder) (02818326) Afib (I48.91) Active confirmed Problem Coronary artery disease (41691324) CAD (coronary artery disease) (I25.10) Active confirmed Problem Hypertension (42131163) HTN (hypertension) (I10) Active confirmed Problem Non-pressure chronic ulcer of right heel and midfoot with necrosis of muscle (L97.413) Active confirmed Problem Recurrent falls (334896509) Frequent falls (R29.6) Active confirmed Problem Adult failure to thrive syndrome (045949006) Failure to thrive in adult (R62.7) Active confirmed Problem Long-term current use of insulin (007457659) Long-term insulin use (Z79.4) Active confirmed Problem Amputation stump pain (T87.89) Active confirmed Problem Polyneuropathy due to type 2 diabetes mellitus (506255832) Diabetes mellitus with diabetic polyneuropathy (E11.42) Active confirmed Problem Acute osteomyelitis of left foot (4289177935582836 ) Acute osteomyelitis of left foot (M86.172) Active confirmed Problem Essential hypertension (76880699) BP (high blood pressure) (I10) Active confirmed Problem 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) (189325293) 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) Active confirmed Problem Diabetes mellitus type 2 (disorder) (03953678) Type 2 Diabetes (E11.9) Active confirmed Problem Acute osteomyelitis of ankle and/or foot (314162577) Acute osteomyelitis of left ankle (M86.172) Active confirmed Problem 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) Active confirmed Problem Gangrene of toe of both feet (8306381600214619 8) Gangrene of toe of both feet (I96) Active confirmed Problem Myocardial infarction (18670452) Myocardial infarction (I21.9) Active confirmed Problem Diabetes mellitus (14358551) Diabetes mellitus (E11.9) Active confirmed Problem Chronic ulcer of right foot (disorder) (6142842087163541 0) Chronic ulcer of right foot with fat layer exposed (L97.512) Active confirmed right 2nd toe, right 3rd toe Plan Of Treatment Pending Test Test Name Order Date XR foot RT min 3V 11/11/2024 CA segmental UE or LE CHRISTY 12/08/2024 Insurance Providers Payer Name Payer Address Payer Phone Subscriber Number Group Number Insured Name Patient Relationship to Insured Coverage Start Date Coverage End Date MEDICARE [place] [address] [place] [address] [id number] EMILY RAMIREZ Self - patient is the insured 3
--- OUTSIDE RECORDS SUMMARY | 2025-04-13 13:37 | XMS_ITS | Encounter Summary ---
Author Organization [facility] Address [address] [facility] [place] [address] Care Team Providers Care Control Panel Tester Name Role Phone Unallocated, Noms Provider Primary Care Provi peter Encounter Details Date Type Department Care Team (Late st Contact Info) Description 12/07/2024 Abstract [facility] [address] [place] [address] Unallocated, [place] [address] Social History Tobacco Use Types Packs/Day Years [...] on filedocumented in this encounter Care Teams Control Panel Tester Relationship Specialty Start Date End Date Unallocated, [place] [address] PCP - General 03/06/23 documented as of this encounter
--- OUTSIDE RECORDS SUMMARY | 2025-04-13 13:37 | XMS_ITS | Encounter Summary ---
Author Organization [facility] Address [address] [place] [address] Care Team Providers Care Banquet Houseperson Name Role Phone Unallocated, Jarad Provider Primary Care Provi peter Encounter Details Date Type Department Care Team ([facility] st Contact Info) Description 01/28/2025 Abstract [facility] DEPARTMENT [address] [place] [address] Unallocated, [place] [address] Social History Tobacco Use Types Packs/Day Years [...] on filedocumented in this encounter Care Teams Banquet Houseperson Relationship Specialty Start Date End Date Unallocated, Jarad Kelley MD [address] [place] [address] PCP - General 03/06/23 documented as of this encounter
--- OUTSIDE RECORDS SUMMARY | 2025-04-13 13:37 | XMS_ITS | Clinical Summary ---
Author Organization [facility] Address [address] [place] [address] Care Team Providers Care Education Administrative Assistant Name Role Phone Unallocated, Karthik Provider Primary Care Provi peter Allergies Active Allergy Reactions Criticality Noted Date Comments Hydrocodone GI intolerance 07/10/2021 Hydrocodone-Acetaminophen Other 12/02/2024 Wound Dressing Adhesive Other 07/18/2022 Medications oxyCODONE (Roxicodone) 5 MG immediate release tabletIndicatio ns:Pain,Neuropa thic pain Take 1 tablet (5 mg) by mouth every 6 (six) hours if needed for severe pain 120 tablet 03/07/2025 Encounters Date Type Department Care Team Description 03/07/2025 Telephone [facility] [address] [facility] [address] [place] [address] Kizzy Amezcua, RYAN 03/01/2025 Abstract [facility] [address] [place] [phone] UnallocatedKarthik MD 03/01/2025 Abstract [facility] [address] [place] [phone] UnallocatedKarthik MD 03/01/2025 Abstract [facility] [address] [place] [phone] UnallocatedKarthik MD 01/28/2025 Abstract [facility] [address] [place] [phone] Unallocated, Noms ProviderMD from Last 3 Months Family History Medical History Relation Name Comments Diabetes Father Diabetes Mother Relation Name Status Comments Brother Alive Father Mother Sister 1 Sister 2 Sister 3 Social History Tobacco Use Types Packs/Day Years Used Date Smoking Tobacco: Never Assessed Comments Unknown Sex and Gender Information Value Date Recorded Sex Assigned at Not on file Legal Sex Female 6:49 PM EDT Gender Identity Not on file Sexual Orientation Not on file Last Filed Vital Signs Vital Sign Reading Time Taken Comments Blood Pressure 118/70 02/01/2023 2:33 PM EDT Pulse 52 02/01/2023 2:33 PM EDT Temperature - - Respiratory Rate 18 02/01/2023 2:33 PM EDT Oxygen Saturation - - Inhaled Oxygen Concentration - - Weight 87.1 kg (192 lb) 02/01/2023 2:33 PM EDT Height 167.6 cm (5' 6 ) 02/01/2023 2:33 PM EDT Body Mass Index 30.99 02/01/2023 2:33 PM EDT Plan of Treatment Health Maintenance Due Date Last Done Comments CT Colonography 1955 FIT-DNA 1955 FIT 1955 FOBT 1955 Sigmoidoscopy 1955 Diabetes: Retinopathy Screening 12/01/2022 12/01/2021, 07/28/2021, 05/19/2021, Additional history exists Mammogram 07/30/2023 07/30/2022, 04/0 09/2020, 12/08/2019, Additional history exists Diabetes: Urine Protein Screening 01/02/2024 01/01/2023, 09/02/2020, 11/17/2019 Diabetes: Hemoglobin A1C 03/14/2025 025, 04/26/2023, 04/26/2023, Additional history exists Influenza Vaccine (#1) 2025 3, 08/07/2021, 08/30/2020, Additional history exists Colonoscopy 12/11/2025 12/12/2015 Colorectal Cancer Screening 12/11/2025 Pneumococcal Vaccine: 65+ Years Completed 01/02/2023, 11/16/2022, 06/23/2009 Procedures Procedure Name Priority Date/Time Associated Diagnosis Comments BI MAMMOGRAM SCREENING TOMOSYNTHESIS BILATERAL Routine 07/30/2022 12:00 PM EST Generalized anxiety disorder Type 2 diabetes mellitus with diabetic nephropathy (HCC) Type 2 diabetes mellitus with diabetic polyneuropathy (HCC) Type 2 diabetes mellitus with other diabetic neurological complication (HCC) Type 2 diabetes mellitus with other circulatory complications (HCC) Type 2 diabetes mellitus with foot ulcer (CODE) (HCC) Type 2 diabetes mellitus with hyperglycemia (HCC) Other primary ovarian failure Overweight Chronic obstructive pulmonary disease, unspecified (HCC) Non-pressure chronic ulcer of other part of right foot with unspecified severity (HCC) Acute cystitis with hematuria 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 (HCC) Anxiety disorder, unspecified Major depressive disorder, single episode, unspecified Gastro-esophageal reflux disease without esophagitis Unspecified osteoarthritis, unspecified site Encounter for general adult medical examination without abnormal findings Tobacco use Hyperlipidemia, unspecified Other abnormal and inconclusive findings on diagnostic imaging of breast Vitamin D deficiency, unspecified Atherosclerotic heart disease of [place] coronary artery without angina pectoris Repeated falls Presence of aortocoronary bypass graft Other forms of chronic ischemic heart disease Unspecified asthma, uncomplicated (HCC) Acquired absence of both cervix and uterus Localized edema Carpal tunnel syndrome, left upper limb Personal history of (healed) traumatic fracture Pressure ulcer of unspecified site, unspecified stage Other specified counseling Unspecified inflammatory spondylopathy, lumbosacral region Type 2 diabetes mellitus with diabetic neuropathy, unspecified (HCC) Type 2 diabetes mellitus with moderate nonproliferative diabetic retinopathy with macular edema, right eye (HCC) Nontoxic single thyroid nodule Encounter for screening mammogram for malignant neoplasm of breast Other ill-defined heart diseases A1C WITH EST AVE GLU Routine 03/13/2022 COLOR FUNDUS PHOTOGRAPHY - OU - BOTH EYES Routine 12/01/2021 12:00 PM EST MICROALBUMIN / CREATININE URINE RATIO Routine 09/02/2020 COLONOSCOPY Routine 12/12/2015 12:00 PM EDT from Last 3 Months or Most Recently Relevant to Health Maintenance Results * Bilateral screening mammogram with tomosynthesis (07/30/2022 12:00 PM EST) Anatomical Region Laterality Modality Breast Bilateral Mammography Narrative 07/30/2022 12:00 PM EST PERFORMED AT [facility] LOCATION:[id number] Procedure Note CONVERSION, GENERIC - 03/29/2023 PERFORMED AT [facility] LOCATION:[id number] us Rosalee ASHTON IMG BI PROCEDURES Final Result * A1C WITH EST A[address] GLU (03/13/2022) Pathologist [facility] GENERIC LEGACY COMPONENT [facility] 03/13/2022 us Peter Santos MD [facility] LABS Final Result Performing Organization Address [facility] Co de Phone Number [facility] * Color Fundus Photography - OU - Both Eyes (12/01/2021 12:00 PM EST) Anatomical Region Laterality Modality Head Fundus Photograp hy 12/01/2021 12:0 0 PM EST Narrative 12/04/2021 12:00 PM EDT PERFORMED AT [facility] LOCATION:[id number] Abnormal Procedure Note CONVERSION, GENERIC - 02/06/2023 PERFORMED AT [facility] LOCATION:[id number] Abnormal us Rosalee ASHTON OPHTH PHOTOGRAPHY Final Result * Microalbumin / creatinine urine ratio (09/02/2020) UCREA 149 28 - 217 [facility] MALB 21.6 [facility] Comment:mALB reference range not established. MICROALB/CREAT RATIO 145.0 [facility] 09/02/2020 us Peter Santos MD LAB URINE ORDERABLES Final Res ult [facility] * Colonoscopy (12/12/2015 12:00 PM EDT) Anatomical Region Laterality Modality Endoscopy 12/12/2015 12:0 0 PM EDT Narrative 12/12/2015 12:00 PM EDT PERFORMED AT [facility] LOCATION:[id number] internal hemorrhoids Procedure Note CONVERSION, GENERIC - 02/07/2023 PERFORMED AT [facility] LOCATION:[id number] internal hemorrhoids Peter Santos MD ENDOSCOPY PROCEDURE ORDERABLES Final Result from Last 3 Months or Most Recently Relevant to Health Maintenance Insurance MEDICAID [place] MEDICARE Care Teams Education Administrative Assistant Relationship Specialty Start Date End Date Unallocated, Noms Provider, [address] [place] [address] PCP - General 03/06/23
--- OUTSIDE RECORDS SUMMARY | 2025-04-13 13:37 | XMS_ITS | Encounter Summary ---
Author Organization [facility] Address [address] [facility] [place] [address] Care Team Providers Care Clinical Reviewer Name Role Phone Unallocated, Noms Provider Primary Care Provi peter Encounter Details Date Type Department Care Team (Late st Contact Info) Description 04/06/2024 Abstract [facility] [address] [place] [address] Unallocated, Karthik [place] [address] Social History Tobacco Use Types Packs/Day Years [...] on filedocumented in this encounter Care Teams Clinical Reviewer Relationship Specialty Start Date End Date Unallocated, [place] [address] PCP - General 03/06/23 documented as of this encounter
--- OUTSIDE RECORDS SUMMARY | 2025-04-13 13:37 | XMS_ITS | Encounter Summary ---
Author Organization [facility] Address [address] [facility] [address] Care Team Providers Care Down Filler Name Role Phone Unallocated, Noms Provider Primary Care Provi peter Encounter Details Date Type Department Care Team (Late st Contact Info) Description 11/24/2024 Abstract [facility] [address] [place] [address] Unallocated, [place] [address] Social History Tobacco Use Types Packs/Day Years [...] on filedocumented in this encounter Care Teams Down Filler Relationship Specialty Start Date End Date Unallocated, [place] [address] PCP - General 03/06/23 documented as of this encounter
--- OUTSIDE RECORDS SUMMARY | 2025-04-13 13:37 | XMS_ITS | Encounter Summary ---
Author Organization [facility] Address [address] [place] [address] Care Team Providers Care Colliery Clerk Name Role Phone Unallocated, Noms Provider Primary Care Provi peter Encounter Details Date Type Department Care Team (Late st Contact Info) Description 09/08/2024 Abstract [facility] [address] [place] [address] Unallocated, [place]arth[place] [address] Social History Tobacco Use Types Packs/Day Years [...] on filedocumented in this encounter Care Teams Colliery Clerk Relationship Specialty Start Date End Date Unallocated, [place] [address] PCP - General 03/06/23 documented as of this encounter
--- OUTSIDE RECORDS SUMMARY | 2025-04-13 13:37 | XMS_ITS | Encounter Summary ---
Author Organization [facility] Address [address] [facility] [place] [address] Care Team Providers Care Email Campaign Manager Name Role Phone Unallocated, Jarad Provider Primary Care Provi peter Encounter Details Date Type Department Care Team ([facility] st Contact Info) Description 03/01/2025 Abstract [facility] [address] [place] [address] Unallocated, [place] [address] Social History Tobacco Use Types Packs/Day Years [...] on filedocumented in this encounter Care Teams Email Campaign Manager Relationship Specialty Start Date End Date Unallocated, Jarad Kelley MD [address] [place] [address] PCP - General 03/06/23 documented as of this encounter
--- OUTSIDE RECORDS SUMMARY | 2025-04-13 13:37 | XMS_ITS | Encounter Summary ---
Author Organization [facility] [address] [facility] [place] [address] Care Team Providers Care Center Rep Name Role Phone Unallocated, Noms Provider Primary Care Provi peter Encounter Details Date Type Department Care Team (Late st Contact Info) Description 03/09/2024 Abstract [facility] [address] [place] [address] Unallocated, Karthik [place] [address] Social History Tobacco Use Types Packs/Day Years [...] on filedocumented in this encounter Care Teams Center Rep Relationship Specialty Start Date End Date Unallocated, MD [place] [address] PCP - General 03/06/23 documented as of this encounter
--- OUTSIDE RECORDS SUMMARY | 2025-04-13 13:37 | XMS_ITS | Encounter Summary ---
Author Organization [facility] Address [address] [place] [address] Care Team Providers Care Plater Production Name Role Phone Unallocated, Noms Provider Primary Care Provi peter Encounter Details Date Type Department Care Team (Late st Contact Info) Description 07/28/2023 Clinisync Result Encounter [facility] Unsolicited Julián Fair PA [address] [place] [address] Social History Tobacco Use Types Packs/Day Years [...] Procedure Name Priority Date/Time Associated Diagnosis Comments ECG 12-LEAD 07/28/2023 9:06 PM EST documented in this encounter Results * ECG 12-LEAD (07/28/2023 9:06 PM EST) Anatomical Region Laterality Modality Other 07/28/2023 9:06 PM EST Narrative 07/28/2023 9:06 PM EST The [address] [address] Electrocardiograph Report Signed Patient: EMILY HARO MR#: [id number] : 1955 Acct:[id number] Age/Sex: 68 / F ADM Date: 07/28/23 Loc: [place] 217-[address]: Shaikh Annalise Gamez Ordering Physician: Julián Fair Date of Service: 07/28/23 Procedure(s): ECG 12 lead Accession Number(s): [id number] cc: [facility] Test Date: 2023-07-28 Pat Name: EMILY KEENANG Department: Room: - Gender: Female Online Marketing Strategist: : 1955 Requested By: Order Number: [id number] Reading MD: CHANDNI KWON Measurements Intervals [place] Rate: 106 P: 80 OK: 140 QRS: -23 QRSD: 84 T: 108 QT: 346 QTc: 408 Interpretive Statements 1120 Sinus tachycardia 4068 Nonspecific Twave abnormality 6220 Possible left atrial enlargement 7202 Moderate left axis deviation 9140 abnormal rhythm ECG Compared to ECG 04/26/2023 07:47:38 Myocardial infarct finding no longer present Electronically Signed On 07-31-2023 7:01:41 EST by CHANDNI KWON Dictated By: Chandni Kwon M.D. Signed By: 07/31/23 07 DD/ 05 TD/TT: Track Repairer Helper: Procedure Note Radiology, Radiologist, MD - 07/31/2023 [place] [address] Electrocardiograph Report Signed Patient: EMILY HARO R#: [id number] : [id number] Age/Sex: 68 / FADM Date: 07/28/23 Loc: [place] 217-[address]: Shaikh Annalise Gamez Ordering Physician: Julián Fair Date of Service: 07/28/23 Procedure(s): ECG 12 lead Accession Number(s): [id number] cc: [facility] Test Date: 2023-07-28 Pat Name: EMILY HARO Department: Room: - Gender: Female Online Marketing Strategist: : 1955 Requested By: Order Number: [id number] Reading MD: CHANDNI KWON Measurements Intervals [place] Rate: 106 P: 80 OK: 140 QRS: -23 QRSD: 84 T: 108 QT: 346 QTc: 408 Interpretive Statements 1120 Sinus tachycardia 4068 Nonspecific Twave abnormality 6220 Possible left atrial enlargement 7202 Moderate left axis deviation 9140 abnormal rhythm ECG Compared to ECG 04/26/2023 07:47:38 Myocardial infarct finding no longer present Electronically Signed On 07-31-2023 7:01:41 EST by CHANDNI KWON Dictated By: Chandni Kwon M.D. Signed By:07/31/23700 DD/ 05 TD/TT: Track Repairer Helper: us [facility] Final Resul t documented in this encounter Visit Diagnoses Not on filedocumented in this encounter Care Teams Plater Production Relationship Specialty Start Date End Date Unallocated, Noms Provider, [address] [id number] PCP - General 03/06/23 documented as of this encounter
--- OUTSIDE RECORDS SUMMARY | 2025-04-13 13:37 | XMS_ITS | Encounter Summary ---
Author Organization [facility] Address [address] [facility] [place] [address] Care Team Providers Care Export Documents Clerk Name Role Phone Unallocated, Jarad Provider Primary Care Provi peter Encounter Details Date Type Department Care Team ([facility] st Contact Info) Description 03/01/2025 Abstract [facility] [address] [place] [address] Unallocated, [place] [address] Social History Tobacco Use Types Packs/Day Years [...] on filedocumented in this encounter Care Teams Export Documents Clerk Relationship Specialty Start Date End Date Unallocated, Jarad Kelley MD [address] [address] PCP - General 03/06/23 documented as of this encounter
--- OUTSIDE RECORDS SUMMARY | 2025-04-13 13:38 | XMS_ITS | Encounter Summary ---
Author Organization [facility] [address] [facility] [place] [address] Care Team Providers Care Sales Professional Bilingual Name Role Phone Unallocated, Nomkelsey Provider Primary Care Provi peter Encounter Details Date Type Department Care Team (Late st Contact Info) Description 08/06/2023 Abstract [facility] [address] [place] [address] Unallocated, Karthik [place] [address] Social History Tobacco Use Types Packs/Day Years [...] on filedocumented in this encounter Care Teams Sales Professional Bilingual Relationship Specialty Start Date End Date Unallocated, [place] [address] PCP - General 03/06/23 documented as of this encounter
[2025-04-13 13:55] LABS: Hematocrit 39.8 % (36.0-48.0); Hemoglobin 12.2 g/dL (12.0-16.0); Immature Granulocytes Abs Auto 0.14 10^3/uL (0.00-0.03); Immature Granulocytes Pct Auto 1.4 % (0.0-0.5); Lymphocytes Absolute Auto 1.1 10^3/uL (1.2-3.8); Mean Corpuscular HGB Conc 30.7 g/dL (29.9-35.2); Mean Corpuscular Hemoglobin 28.3 pg (26.7-34.0); Mean Corpuscular Volume 92.3 fL (81.0-99.0); Platelet Count 249 10^3/uL (150-450); Red Blood Count 4.31 10^6/uL (4.20-5.40); White Blood Count 10.0 10^3/uL (4.0-11.0)
[2025-04-13 14:12] LABS: Anion Gap 16.1; Calcium 9.3 mg/dL (8.5-10.1); Carbon Dioxide 24.5 mmol/L (21.0-32.0); Chloride 100 mmol/L (98-107); Estimated GFR (African America 20 (>=60 mL/min/1.73m^2); Estimated GFR (Non-African Ame 16 (>=60 mL/min/1.73m^2); Glucose 356 mg/dL (74-106); Sodium 133 mmol/L (136-145)
[2025-04-13 14:19] LABS: Blood Urea Nitrogen 78.0 mg/dL (7.0-18.0); Potassium 7.6 mmol/L (3.5-5.1)
[2025-04-13 14:20] LABS: NT Pro B Type Natriuretic Pept 20024.0 pg/mL (<=900.0)
== END 2025-04-13 13:25 | disposition home or self-care (01) ==
LOC: LAB 13:24
PROVIDERS: Visit Provider Nurse Practitioner Family
DX: R06.02 Shortness of breath (principal); R41.82 Altered mental status, unspecified
CPT/HCPCS: 36415; 80048; 83880; 85025